=== PATIENT | female | born 1965 | race Caucasian/White ===

== ENCOUNTER 2020-08-26 14:35 | Emergency (ER) | payer OTHER ==
--- NOTE | 2020-08-26 16:27 | RAD REPORT ---
EXAM DESCRIPTION: RAD - Chest Single View - 08/26/2020 4:20 pm CLINICAL HISTORY: COUGH Chest pain. COMPARISON: No comparisons FINDINGS: Portable technique limits examination quality. The lungs are mildly emphysematous but grossly clear. The heart is normal in size. No displaced fract ures. IMPRESSION: No acute intrathoracic process suspected.
[2020-08-26 16:41] LABS: Absolute Lymphocytes (CBC) 1.3 K/uL (0.7-4.9); Basophils % 0.6 % (0-1.3); Hematocrit 46.4 % (36.0-45.0); Lymphocytes % 17.8 % (15.3-44.8); MPV 9.1 fL (7.6-11.3); RBC Red Blood Cell Count 4.94 M/uL (3.86-4.86)
[2020-08-26 16:46] LABS: Potassium 3.9 mmol/L (3.5-5.1)
[2020-08-26] MEDS ORDERED: ONDANSETRON 4 MG/2 ML VIAL ONE (17:01)
[2020-08-26] MEDS ORDERED: MORPHINE 4 MG/ML SYR ONE (17:01)
[2020-08-26] MEDS ORDERED: NA CHLORIDE 0.9% 1,000 ML ONE (17:40)
--- NOTE | 2020-08-26 17:49 | ER ---
Nurse's Notes [facility] Name: Tita Elizabeth Age: 55 yrs Sex: Female : 1965 Arrival Date: 08/26/2020 Time: 14:38 Bed 7 Private MD: Diagnosis: Coronavirus infection, unspecified Presentation: 08/26 14:50 Chief complaint: Patient states: productive cough, body aches, sore throat, fatigue, aa5 headache, and vomiting that began yesterday. Denies diarrhea. Pt also reports diaphoresis and reports low grade fever at home, reports taking Tylenol at 1300. Ebola Screen: Patient negative for fever greater than or equal to 101.5 degrees Fahrenheit, and additional compatible Ebola Virus Disease symptoms. Initial Sepsis Screen: Does the patient meet any 2 criteria? No. Patient's initial sepsis screen is negative. Does the patient have a suspected source of infection? Yes: Productive cough/pneumonia. Risk Assessment: Do you want to hurt yourself or someone else? Patient reports no desire to harm self or others. Onset of symptoms was July 2020. 14:50 Method Of Arrival: Ambulatory aa5 14:50 Acuity: JAY 3 aa5 14:51 Coronavirus screen: cough unrelated to allergies, headache, sore throat, Client aa5 presents with at least one sign or symptom that may indicate coronavirus-19. Standard/surgical mask placed on the client. Provider contacted for isolation considerations. Triage Assessment: 15:45 General: Appears distressed, ill, Behavior is cooperative, appropriate for age, bp anxious. Pain: Complains of pain in GENERAL MYALGIA. EENT: Reports nasal congestion. Neuro: Reports headache. Cardiovascular: Rhythm is sinus bradycardia. Respiratory: Reports cough that is. GI: Reports nausea, vomiting. : No signs and/or symptoms were reported regarding the genitourinary system. Derm: No deficits noted. Musculoskeletal: No deficits noted. Historical: - Allergies: 14:53 Sulfa (Sulfonamide Antibiotics); aa5 - PMHx: 14:53 Hypertension; Arthritis; aa5 14:53 Lyme disease; aa5 - PSHx: 14:53 Bladder sling; Appendectomy; Hysterectomy; aa5 - Immunization history:: Flu vaccine is not up to date. - Social history:: Smoking status: Patient reports the use of cigarette tobacco products, smokes one pack cigarettes per day. Screenin:48 Abuse screen: Denies threats or abuse. Denies injuries from another. Nutritional bp screening: No deficits noted. Tuberculosis screening: No symptoms or risk factors identified. Fall Risk None identified. Assessment: 15:45 General: SEE TRIAGE NOTE. GI: Abdomen is non-distended. bp 16:46 Reassessment: No changes from previously documented assessment. Patient and/or family bp updated on plan of care and expected duration. Pain level reassessed. Patient is alert, oriented x 3, equal unlabored respirations, skin warm/dry/pink. ALL CURRENT ORDERS COMPLETE, RESULTS PENDING. 18:00 Reassessment: PER PROVIDER, D/C ON HOLD FOR IVF COMPLETION. bp Vital Signs: 14:50 BP 191 / 68; Pulse 50; Resp 16 S; Temp 98.8(O); Pulse Ox 95% on R/A; aa5 16:40 BP 174 / 87; Pulse 43; Resp 13; Temp 98.2(O); Pulse Ox 98% ; mh5 17:40 BP 181 / 93; Pulse 58; Resp 13; Pulse Ox 100% ; bp 19:12 BP 180 / 97; Pulse 59; Resp 18; Temp 98; Pulse Ox 99% ; rv ED Course: 14:38 Patient arrived in ED. ag5 14:50 Arm band placed on. aa5 14:51 Triage completed. aa5 15:03 Renetta Orantes FNP-C is [facility]. kb 15:03 Santiago Wang MD is Attending Physician. kb 15:39 Michael Leonard, DALJIT is Primary Nurse. bp 15:45 Patient has correct armband on for positive identification. Placed in gown. Bed in low mh5 position. Call light in reach. Side rails up X 1. Pillow given. campus monitor on. Pulse ox on. NIBP on. 16:20 Chest Single View XRAY In Process Unspecified. EDMS 16:20 Inserted saline lock: 22 gauge in right antecubital area, using aseptic technique. bp Blood collected. Administered Medications: 16:46 Drug: Zofran (Ondansetron) 4 mg Route: IVP; Site: right antecubital; jl7 19:13 Follow up: Response: No adverse reaction rv 16:48 Drug: morphine 4 mg Route: IVP; Site: right antecubital; jl7 19:13 Follow up: Response: No adverse reaction rv 17:29 Drug: NS 0.9% 1000 ml Route: IV; Rate: 1000 ml; Site: right antecubital; jl7 19:13 Follow up: IV Status: Completed infusion; IV Intake: 1000ml rv 19:00 Drug: cloNIDine 0.1 mg Route: PO; jl7 19:13 Follow up: Response: Medication administered at discharge. rv Intake: 19:13 IV: 1000ml; Total: 1000ml. rv Outcome: 17:48 Discharge ordered by . norm 19:14 Patient left the ED. rv Addendum: 08/31/2020 09:10 Addendum: COVID-19 Result: Negative result given to RN to notify pt. Left voice mail. d m5 09:21 Addendum: COVID-19 Result: Negative result given to RN to notify pt. Notified pt of d m5 negative COVID 19 swab results. Pt advised that even with a negative test result they should remain in isolation until symptom free for 3 days without medication. Pt also advised to return to the ED for worsening symptoms. Signatures: Dispatcher [employer] EDMS Renetta Orantes, AUTO INSPECTOR-C AUTO INSPECTOR-Ckb Sharmila Tejada, RN RN Ivone Fowler, RN RN Nancy Vazquez Jahala RN RN catina7 Michael Leonard, RN RN Abelardo Bansal, RN RN rv Jairo Mayfield ag5 Corrections: (The following items were deleted from the chart) 08/26 14:52 14:50 Chief complaint: Patient states: productive cough, body aches, sore throat, aa5 fatigue, headache, and vomiting that began yesterday. Denies diarrhea. aa5 16:49 16:40 BP 174 / 87; Pulse 43bpm; Resp 13bpm; Pulse Ox 98%; jl7 mh5
--- NOTE | 2020-08-26 17:49 | EDPHYS ---
Physician Documentation [facility] Name: Tita Elizabeth Age: 55 yrs Sex: Female : 1965 Arrival Date: 08/26/2020 Time: 14:38 Bed 7 Private MD: ED Physician Santiago Wang HPI: 08/26 17:39 This 55 yrs old Female presents to ER via Ambulatory with complaints of kb Fever, Nausea/Vomiting, Headache. 17:45 The patient or guardian reports cough, that is intermittent, described as moderate, kb with no sputum, flu symptoms, low-grade fever, myalgias. 17:46 Onset: The symptoms/episode began/occurred last week. Severity of symptoms: At their kb worst the symptoms were moderate, in the emergency department the symptoms are unchanged. Modifying factors: The symptoms are alleviated by nothing, the symptoms are aggravated by nothing. Associated signs and symptoms: Pertinent positives: fever, nausea, rhinorrhea, sore throat, vomiting, Pertinent negatives: chest pain, diarrhea, ear ache. The patient has not experienced similar symptoms in the past. The patient has not recently seen a physician. Historical: - Allergies: 14:53 Sulfa (Sulfonamide Antibiotics); aa5 - PMHx: 14:53 Hypertension; Arthritis; aa5 14:53 Lyme disease; aa5 - PSHx: 14:53 Bladder sling; Appendectomy; Hysterectomy; aa5 - Immunization history:: Flu vaccine is not up to date. - Social history:: Smoking status: Patient reports the use of cigarette tobacco products, smokes one pack cigarettes per day. ROS: 17:43 Cardiovascular: Negative for chest pain, palpitations, and edema, Back: Negative for kb injury and pain, MS/Extremity: Negative for injury and deformity, Skin: Negative for injury, rash, and discoloration. 17:43 Constitutional: Positive for body aches, chills, fatigue, fever, malaise. 17:43 ENT: Positive for sore throat. 17:43 Respiratory: Positive for cough, Negative for dyspnea on exertion, hemoptysis, orthopnea, pleurisy, shortness of breath, sputum production, wheezing. 17:43 Neuro: Positive for headache. 17:46 Abdomen/GI: Positive for nausea and vomiting, Negative for abdominal pain, diarrhea, kb constipation. Exam: 17:46 Head/Face: Normocephalic, atraumatic. ENT: Nares patent. No nasal discharge, no kb septal abnormalities noted. Tympanic membranes are normal and external auditory canals are clear. Oropharynx with no redness, swelling, or masses, exudates, or evidence of obstruction, uvula midline. Mucous membranes moist. Chest/axilla: Normal chest wall appearance and motion. Nontender with no deformity. No lesions are appreciated. Cardiovascular: Regular rate and rhythm with a normal S1 and S2. No gallops, murmurs, or rubs. Normal PMI, no JVD. No pulse deficits. Respiratory: Lungs have equal breath sounds bilaterally, clear to auscultation and percussion. No rales, rhonchi or wheezes noted. No increased work of breathing, no retractions or nasal flaring. Abdomen/GI: Soft, non-tender, with normal bowel sounds. No distension or tympany. No guarding or rebound. No evidence of tenderness throughout. Skin: Warm, dry with normal turgor. Normal color with no rashes, no lesions, and no evidence of cellulitis. MS/ Extremity: Pulses equal, no cyanosis. Neurovascular intact. Full, normal range of motion. Neuro: Awake and alert, GCS 15, oriented to person, place, time, and situation. Cranial nerves II-XII grossly intact. Motor strength 5/5 in all extremities. Sensory grossly intact. Cerebellar exam normal. Normal gait. 17:46 Constitutional: The patient appears alert, awake, uncomfortable. Vital Signs: 14:50 BP 191 / 68; Pulse 50; Resp 16 S; Temp 98.8(O); Pulse Ox 95% on R/A; aa5 16:40 BP 174 / 87; Pulse 43; Resp 13; Temp 98.2(O); Pulse Ox 98% ; mh5 17:40 BP 181 / 93; Pulse 58; Resp 13; Pulse Ox 100% ; bp 19:12 BP 180 / 97; Pulse 59; Resp 18; Temp 98; Pulse Ox 99% ; rv MDM: 15:39 Patient medically screened. kb 17:43 Data reviewed: vital signs, nurses notes. Data interpreted: Pulse oximetry: on room air kb is 100 %. Interpretation: normal. Counseling: I had a detailed discussion with the patient and/or guardian regarding: the historical points, exam findings, and any diagnostic results supporting the discharge/admit diagnosis, lab results, radiology results, the need for outpatient follow up, a family practitioner, to return to the emergency department if symptoms worsen or persist or if there are any questions or concerns that arise at home. 08/26 15:03 Order name: Flu; Complete Time: 17:11 kb 08/26 15:53 Order name: Basic Metabolic Panel; Complete Time: 16:48 kb 08/26 15:53 Order name: CBC with Diff; Complete Time: 17:09 kb 08/26 15:53 Order name: Strep; Complete Time: 17:09 kb 08/26 16:06 Order name: COVID-19 bp 08/26 17:09 Order name: Throat Culture EDMS 08/26 15:53 Order name: IV Saline Lock; Complete Time: 16:23 kb 08/26 15:53 Order name: Labs collected and sent; Complete Time: 16:23 kb 08/26 15:53 Order name: Chest Single View XRAY; Complete Time: 16:29 kb Administered Medications: 16:46 Drug: Zofran (Ondansetron) 4 mg Route: IVP; Site: right antecubital; jl7 19:13 Follow up: Response: No adverse reaction rv 16:48 Drug: morphine 4 mg Route: IVP; Site: right antecubital; jl7 19:13 Follow up: Response: No adverse reaction rv 17:29 Drug: NS 0.9% 1000 ml Route: IV; Rate: 1000 ml; Site: right antecubital; jl7 19:13 Follow up: IV Status: Completed infusion; IV Intake: 1000ml rv 19:00 Drug: cloNIDine 0.1 mg Route: PO; jl7 19:13 Follow up: Response: Medication administered at discharge. rv Disposition: 08/27 07:25 Co-signature as Attending Physician, Santiago Wang MD I agree with the assessment and kdr plan of care. Disposition: 08/26/20 17:48 Discharged to Home. Impression: Coronavirus infection, unspecified. - Condition is Stable. - Discharge Instructions: Viral Respiratory Infection, [id number], COVID-19. - Medication Reconciliation Form, Thank You Letter, Antibiotic Education, Prescription Opioid Use form. - Follow up: Emergency Department; When: As needed; Reason: Worsening of condition. Follow up: Private Physician; When: 2 - 3 days; Reason: Recheck today's complaints, Continuance of care, Re-evaluation by your physician. Signatures: Dispatcher [employer] EDMS eRnetta Orantes, ZOOLOGY PROFESSOR-C ZOOLOGY PROFESSOR-Santiago Esposito MD MD [facility] Ivone Wade RN RN aa5 Aron Carlson RN RN jl7 Abelardo Galan, RN RN rv Corrections: (The following items were deleted from the chart) 08/26 17:46 17:44 Constitutional: This is a well developed, well nourished patient who is awake, kb alert, and in no acute distress. Head/Face: Normocephalic, atraumatic. kb 17:47 17:43 Cardiovascular: Negative for chest pain, palpitations, and edema, Abdomen/GI: kb Negative for abdominal pain, nausea, vomiting, diarrhea, and constipation, Back: Negative for injury and pain, MS/Extremity: Negative for injury and deformity, Skin: Negative for injury, rash, and discoloration, kb 19:14 17:48 08/26/2020 17:48 Discharged to Home. Impression: Coronavirus infection, rv unspecified. Condition is Stable. Forms are Medication Reconciliation Form, Thank You Letter, Antibiotic Education, Prescription Opioid Use. Follow up: Emergency Department; When: As needed; Reason: Worsening of condition. Follow up: Private Physician; When: 2 - 3 days; Reason: Recheck today's complaints, Continuance of care, Re-evaluation by your physician. kb
[2020-08-26] MEDS ORDERED: cloNIDine HCL 0.1 MG TAB ONE (19:12)
[2020-08-26 19:33] VITALS: BP 180/97; TEMP 98; O2SAT 99
== END 2020-08-26 19:14 | disposition home or self-care (01) ==
LOC: ER 14:35
DX: R05 Cough (principal); Z20.828 Contact with and (suspected) exposure to other viral communicable diseases; F17.210 Nicotine dependence, cigarettes, uncomplicated; I10 Essential (primary) hypertension; Z88.2 Allergy status to sulfonamides
CPT/HCPCS: 96361; 87070; 85025; 80048; 36415; 87081; 87804 ×2; 71045; 96375; 96374; 99284; U0002; J7030; J2405

== ENCOUNTER 2020-09-16 07:55 | Inpatient (IN) | payer OTHER ==
--- OUTSIDE RECORDS SUMMARY | 2020-09-16 08:01 | XMS REPORT | Clinical Summary ---
:1965 [address] 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 sciatica laterality unspecified cyclobenzaprine Take 1 tablet 30 tablet 0 12/10/2018 Active (FLEXERIL) 10 mg by mouth 2 tabletIndications: times daily as Chronic left-sided low needed for back pain with sciatica, Muscle Spasms. sciatica laterality unspecified Active Problems Not on file Social History Tobacco Use Types Packs/Day Years Used Date Current Every Day Smoker Smokeless Tobacco: Current User Alcohol Use Drinks/Week oz/Week Comments Not Currently Sex Assigned at Date Recorded Not on file Last Filed Vital Signs Not on file Plan of Treatment Health Maintenance Due Date Last Done Comments HPV Cervical Cancer Scrn 1993 Pap Cervical Cancer Scrn 1993 Breast Cancer Scrn (Yearly) 2003 FIT Colorectal Cancer Scrn 2013 IMM Influenza Seasonal May to October (>/= 19 yrs) 05/28/2020 Results Not on fileafter 09/16/2019 Insurance Payer Benefit Plan / Subscriber ID Effective Dates Phone Addre ss Type Group [employer] SELF-PAY [id number] 2017-[place]ardo [phone] [id number] [place] [address]
--- OUTSIDE RECORDS SUMMARY | 2020-09-16 08:01 | XMS REPORT | Continuity of Care Document ---
:1965 Author Organization [facility] Information [place] Care Team Providers Name Role Phone [facility] Spotwise Unavailable Un available Problems Problem Status Onset Classification Date Comments Sourc e Date Reported DX: RENAL ANGIOGRAM Active 014 [facility] BOWEL OBSTRUCTION Active 014 [facility] 795.79 V82.2 724.2 Active [facility] 719.43 726.31 001 [facility] Crohn's disease Resolved Problem 02/07/2015 [facility]ID (disorder) Patience Miguel, [facility] Hypercholesterolemia Active Problem 02/07/2015 [facility] Hypertensive disorder, Active Problem 02/07/2015 OPID systemic arterial Ka ty, (disorder) [facility] Sleep apnea (finding) Active Problem 02/07/2015 [facility] Active NOS [facility] Medications Medication Details Route Status Patient Ordering Order Source Instructions Provider Date Ativan Notes: (Same Inactive as: Ativan) 2013 [facility] Acetaminophen Notes: Do not Inactive exceed 4 2013 [facility] gm/day. [facility] (Same as: Tylenol) rOPINIRole 1 mg 1 mg = 1 tab, Active oral tablet PO, Daily, 0 2013 [facility] l Refill(s) [facility] Klor-Con 10 10 mEq, PO, Active Daily, [facility] Hydrochlorothiazide 1 tab, PO, Active 05/20/ M H 12.5 MG / Losartan Daily, # 30 [facility] Potassium 50 MG tab, 0 [facility] Oral Tablet Refill(s) aspirin 81 mg, PO, Active Daily 2013 [facility] aripiprazole 15 MG 15 mg = 1 Active Oral Tablet tab, PO, 2013 [facility] [Abilify] Daily [facility] Clonidine PO, Bedtime Active 2013 [facility] Ibuprofen 800 mg, PO, Active 09 BID 2013 [facility] Miralax Notes: Inactive Dissolve in 8 2013 [facility] oz of water or juice. (Same as: Miralax) Dulcolax Laxative Notes: (Same Inactive As: Dulcolax, 2013 [facility] Bisco-Lax) Sertraline Notes: (Same No Longer as: Zoloft) Active 2013 [facility] Methocarbamol Notes: (Same No Longer as:Robaxin) Active 2013 [facility] aripiprazole Notes: No Longer Non-Formulary Active 2013 [facility] Drug. (Same as: Abilify) Entocort EC 9 mg, Route: No Longer PO, Drug Active 2013 [facility] form: ERCAP, Daily, Dosing Weight 71.818, kg, Start date: 01/01/14 9:00:00, Duration: 30 day, Stop date: 01/30/14 9:00:00 Budesonide Notes: (Same No Longer As: Entocort Active 2013 [facility] EC or Budesonide 3 mg EC / ERC) "Do Not Crush" Protonix Notes: Tablet No Longer should not be Active 2013 [facility] chewed or crushed. (Same as: Protonix) Dicyclomine Notes: (Same No Longer as: Bentyl) Active 2013 [facility] Trazodone Notes: (Same No Longer Hydrochloride 100 As: Desyrel) Active 2013 [facility] Oral Tablet Zocor Notes: (Same No Longer as: Zocor) Active 2013 [facility] Ditropan XL Notes: (Same No Longer as: Ditropan Active 2013 [facility] XL) "Do Not Crush" Pamelor Notes: (Same No Longer as:Pamelor, Active 2013 [facility] Aventyl) metoprolol tartrate Notes: (Same No Longer 01/01 as: Active 2013 [facility] Lopressor) Pentasa Notes: (Same No Longer as: Pentasa) Active 2013 [facility] Do not open capsule. "Do Not Crush" Ketorolac 4 days. Inactive [facility] 15 [facility] Nicotine Notes: (Same No Longer as: Habitrol) Active 2013 "Remove old patch before application of new patch" Protonix Notes: For IV No Longer push 2013 reconstitute with 10 ml 0.9% sodium chloride and push over 2 minutes. (Same as: Protonix) 24 HR Budesonide 3 9 mg = 3 cap, Active 12/30/ [facility] MG Extended Release PO, Daily, # 2013 [facility] Co[facility] 90 cap, 0 Capsule [Entocort] Refill(s) metoprolol tartrate 25 mg = 1 Active 12/30/ 25 mg oral tablet tab, PO, BID, 2013 # 180 tab, 0 Refill(s) ARIPiprazole 15 mg 15 mg = 1 Active oral tablet tab, PO, 2013 Daily, # 30 tab, 0 Refill(s) mesalamine 500 MG 2,000 mg = 4 Active 05/05/ M H Extended Release cap, BID, 0 2013 [facility] Capsule [Pentasa] Refill(s) sertraline 100 mg 100 mg = 1 Active oral tablet tab, PO, 2013 Daily, # 30 tab, 0 Refill(s) dicyclomine 20 mg 20 mg = 1 Active oral tablet tab, PO, BID, 2013 [facility] ast # 28 tab, 0 Refill(s) mercaptopurine 50 100 MG/M2, Active 12/30/ mg oral tablet PO, Daily, # 2013 [facility] 30 tab, 0 Refill(s) ibuprofen 600 mg 600 mg = 1 Active 12/30/ oral tablet tab, PO, BID, 2013 ast # 120 tab, 0 Refill(s) Simvastatin 20 MG 20 mg = 1 Active Oral Tablet [Zocor] tab, PO, 2013 [facility] Bedtime, # 30 tab, 0 Refill(s) Nortriptyline 50 MG 50 mg = 1 Active Oral Capsule cap, PO, 2013 [Pamelor] Bedtime, # 90 cap, 0 Refill(s) 24 HR Oxybutynin 10 mg = 1 Active 12/30/ chloride 10 MG tab, PO, 2013 t Extended Release Bedtime, # 30 Tablet [Ditropan] tab, 0 Refill(s) Trazodone 100 mg = 1 Active Hydrochloride 100 tab, PO, 2013 [facility] Oral Tablet Bedtime, # 90 tab, 0 Refill(s) Ranitidine 300 MG 300 mg = 1 Active Oral Tablet tab, PO, 2013 [Zantac] Daily, # 30 tab, 0 Refill(s) Sodium Bicarbonate 0 Refill(s) Active H 2013 [facility] methocarbamol 750 750 mg = 1 Active mg oral tablet tab, PO, 2013eas t Daily, # 60 tab, 0 Refill(s) Omeprazole 40 MG 40 mg = 1 Active [facility] Coated cap, PO, 2013[facility] t Capsule [Prilosec] Daily, # 30 cap, 0 Refill(s) Morphine Notes: (Same No Longer as:MORPhine Active 2013 [facility] Sulfate) Zofran Notes: (Same No Longer as: Zofran) Active 2013 [facility] Lovenox Notes: (Same No Longer as: Lovenox) Active 2013 [facility] normal saline 0.9% 1,000 mL, No Longer 12/30/ H IV 1,000 mL Rate: 100 Active 2013 [facility] ml/hr, Infuse over: 10 hr, Route: IV, Dosing Weight 71.818 kg, Total Volume: 1,000, Start date: 12/30/13 3:52:00, Duration: 30 day, Stop date: 01/29/14 3:51:00 Allergies, Adverse Reactions, Alerts Substance Category Reaction Severity Reaction Status Date Comments S ource type Reported NKFA Assertion Drug Active OPI D allergy Patience sulfa drugs Assertion Drug Active OPID allergy Patience Immunizations No Data Provided for This Section Results Order Name Results Value Reference Date Interpretation Comments [facility] CHEM PANEL BUN 8 7 - 22 05/19 [facility] CHEM PANEL Glucose Lvl 91 70 - 99 05/19 <sup>2</sup>Int erpretive Data: [facility] range values reflect the clinical guidelines
of the [place] [employer]. CHEM PANEL CO2 29 24 - 32 05/19 [facility] CHEM PANEL AGAP 6.7 10.0 - 05/19 [facility] 20.0 /2013 [facility] CHEM PANEL eGFR 86 05/19 <sup>1</sup>Res ult Comment: [facility] The eGFR is [place] calculated using the CKD-EPI formula. In most young, healthy individuals the eGFR will be >90 mL/min/1.73m2. The eGFR declines with age. An eGFR of 60-89 may be normal in some populations, particularly the elderly, for whom the CKD-EPI formula has not been extensively validated. Use of the eGFR is not recommended in the following populations:&lt ;br/>
Indiv iduals with unstable creatinine concentrations, including patients and those with serious co-morbid conditions.<br/ >
Patients with extremes in muscle mass or diet.

The data above are obtained from the National Kidney Disease Education Program (NKDEP) which additionally recommends that when the eGFR is used in patients with extremes of body mass index for purposes of drug dosing, the eGFR should be multiplied by the estimated BMI. CHEM PANEL Creatinine 0.8 0.5 - 1.4 05/19 Lvl [facility] CHEM PANEL Chloride Lvl 104 95 - 109 05/19 [facility] CHEM PANEL Potassium 3.7 3.5 - 5.1 05/19 Lvl [facility] CHEM PANEL Sodium Lvl 136 135 - 145 05/19 [facility] CHEM PANEL Calcium Lvl 9.7 8.5 - 10.5 05/19 [facility] HEMATOLOGY MCV 101.6 80.0 - 05/19 MH 98.0 /2013 [facility] HEMATOLOGY MCH 35.5 27.0 - 05/19 MH 31.0 [facility] HEMATOLOGY Hgb 13.3 12.0 - 05/19 MH 16.0 [facility] HEMATOLOGY Hct 37.9 36.0 - 05/19 MH 48.0 /2013 [facility] HEMATOLOGY RBC 3.73 4.20 - 05/19 MH 5.40 /2013 [facility] HEMATOLOGY WBC 6.1 3.7 - 10.4 05/19 [facility] HEMATOLOGY MPV 8.0 7.4 - 10.4 05/19 [facility] HEMATOLOGY RDW 17.2 11.5 - 05/19 MH 14.5 /2013 [facility] HEMATOLOGY Platelet 223 133 - 450 05/19 [facility] HEMATOLOGY MCHC 35.0 32.0 - 05/19 MH 36.0 /2014 [facility] HEMATOLOGY INR 0.93 0.85 - 05/19 <sup>3</sup>Int 1.17 erpretive Data: [facility] RANGES FOR PROTIME INR:
2.0-3.0 for most medical and surgical thromboembolic states.
2.5-3.5 for artificial heart valves and recurrent embolism.
< br/>INR SHOULD BE USED ONLY FOR PATIENTS ON STABLE ANTICOAGULANT THERAPY. HEMATOLOGY PT 12.4 12.0 - 05/19 MH 14.7 [facility] CHEM PANEL Magnesium 2.0 1.8 - 2.4 01/01 Lvl [facility] CHEM PANEL eGFR 113 01/01 <sup>1</sup>Res ult Comment: [facility] The eGFR is calculated using the CKD-EPI formula. In most young, healthy individuals the eGFR will be >90 mL/min/1.73m2. The eGFR declines with age. An eGFR of 60-89 may be normal in some populations, particularly the elderly, for whom the CKD-EPI formula has not been extensively validated. Use of the eGFR is not recommended in the following populations:&lt ;br/>
Indiv iduals with unstable creatinine concentrations, including patients and those with serious co-morbid conditions.<br/ >
Patients with extremes in muscle mass or diet.

The data above are obtained from the National Kidney Disease Education Program (NKDEP) which additionally recommends that when the eGFR is used in patients with extremes of body mass index for purposes of drug dosing, the eGFR should be multiplied by the estimated BMI. CHEM PANEL BUN 4 7 - 22 01/01 [facility] CHEM PANEL Potassium 3.8 3.5 - 5.1 01/01 Lvl [facility] CHEM PANEL Creatinine 0.5 0.5 - 1.4 01/01 Lv [facility] CHEM PANEL Glucose Lvl 94 70 - 99 01/01 <sup>3</sup>Int M H /2013 erpretive Data: [facility] Adult reference range values reflect the clinical guidelines
of the [place] [employer]. CHEM PANEL Sodium Lvl 142 135 - 145 01/01 [facility] CHEM PANEL Calcium Lvl 8.7 8.5 - 10.5 05/07 /2013 [facility] CHEM PANEL Chloride Lvl 105 95 - 109 05/ /2013 [facility] CHEM PANEL CO2 30 24 - 32 05/ /2013 [facility] CHEM PANEL AGAP 10.8 10.0 - 05/07 MH 20.0 /2013 [facility] HEMATOLOGY WBC 4.4 3.7 - 10.4 05/ /2013 [facility] HEMATOLOGY RBC 3.80 4.20 - 05/ MH 5.40 /2013 [facility] HEMATOLOGY MCH 31.1 27.0 - 05/ MH 31.0 /2013 [facility] HEMATOLOGY Hgb 11.8 12.0 - 05/ MH 16.0 /2013 [facility] HEMATOLOGY Hct 34.5 36.0 - 05/ MH 48.0 /2013 [facility] HEMATOLOGY MCV 90.6 81.0 - 05 99.0 /2013 [facility] HEMATOLOGY RDW 16.3 11.5 - 05/ MH 14.5 /2013 [facility] HEMATOLOGY MCHC 34.3 32.0 - 05/ 36.0 /2013 [facility] HEMATOLOGY Platelet 167 133 - 450 05/ /2013 [facility] HEMATOLOGY MPV 7.9 7.4 - 10.4 05/ /2013 [facility] HEMATOLOGY Eosinophils 1.6 0.0 - 4.0 05/07 MH /2013 [facility] HEMATOLOGY Basophils 0.2 0.0 - 1.0 05/07 MH /2013 [facility] HEMATOLOGY Segs-Bands # 2.6 1.5 - 8.1 05/ /2013 [facility] HEMATOLOGY Monocytes 7.4 2.0 - 12.0 05/07 MH /2013 [facility] HEMATOLOGY Lymphocytes 1.3 1.0 - 5.5 05/07 MH # /2014 [facility] HEMATOLOGY Monocytes # 0.3 0.0 - 0.8 05/07 MH /2013 [facility] HEMATOLOGY Eosinophils 0.1 0.0 - 0.5 05/07 MH # /2014 [facility] HEMATOLOGY Basophils # 0.0 0.0 - 0.2 05/ MH /2013 [facility] HEMATOLOGY Lymphocytes 30.7 20.0 - 05/07 MH 40.0 /2013 [facility] HEMATOLOGY Segs 60.1 45.0 - 05/07 75.0 /2013 [facility] CHEM PANEL Magnesium 1.8 1.8 - 2.4 05/05 Lvl /2014 [facility] CHEM PANEL Phosphorus 2.6 2.5 - 4.5 05/ /2013 [facility] CHEM PANEL Globulin 2.8 2.0 - 4.0 05/ MH /2013 [facility] CHEM PANEL A/G Ratio 1.2 0.7 - 1.6 05/ MH /2013 [facility] CHEM PANEL B/C Ratio 10 6 - 25 05/ MH /2013 [facility] CHEM PANEL AGAP 6.9 10.0 - 05/05 MH 20.0 /2013 [facility] CHEM PANEL eGFR 101 05/05 <sup>2</sup>Res MH /2013 ult Comment: [facility] The eGFR is calculated using the CKD-EPI formula. In most young, healthy individuals the eGFR will be >90 mL/min/1.73m2. The eGFR declines with age. An eGFR of 60-89 may be normal in some populations, particularly the elderly, for whom the CKD-EPI formula has not been extensively validated. Use of the eGFR is not recommended in the following populations:&lt ;br/>
Indiv iduals with unstable creatinine concentrations, including patients and those with serious co-morbid conditions.<br/ >
Patients with extremes in muscle mass or diet.

The data above are obtained from the National Kidney Disease Education Program (NKDEP) which additionally recommends that when the eGFR is used in patients with extremes of body mass index for purposes of drug dosing, the eGFR should be multiplied by the estimated BMI. CHEM PANEL Glucose Lvl 84 70 - 99 05 <sup>4</sup>Int M H /2013 [facility] reference range values reflect the clinical guidelines
of the [place] [employer]. CHEM PANEL Potassium 3.9 3.5 - 5.1 05/ MH Lvl [facility] CHEM PANEL Sodium Lvl 141 135 - 145 / [facility] CHEM PANEL Creatinine 0.7 0.5 - 1.4 05/05 MH Lvl /2013 [facility] CHEM PANEL BUN 7 7 - 22 05/ MH [facility] CHEM PANEL Bili Total 0.3 0.2 - 1.3 05/ MH [facility] CHEM PANEL Alk Phos 71 39 - 136 05/ [facility] CHEM PANEL AST 21 0 - 37 05/05 MH [facility] CHEM PANEL ALT 20 0 - 65 05/ MH [facility] CHEM PANEL Total 6.1 6.4 - 8.4 05/ MH [facility] CHEM PANEL CO2 33 24 - 32 05/ [facility] CHEM PANEL Albumin Lvl 3.3 3.5 - 5.0 05/ /2013 [facility] CHEM PANEL Calcium Lvl 8.4 8.5 - 10.5 05/ [facility] CHEM PANEL Chloride Lvl 105 95 - 109 05/ [facility] HEMATOLOGY Basophils # 0.0 0.0 - 0.2 05/ /2013 [facility] HEMATOLOGY Segs 63.5 45.0 - 05/05 75.0 /2013 [facility] HEMATOLOGY Monocytes # 0.3 0.0 - 0.8 05/05 [facility] HEMATOLOGY Basophils 0.2 0.0 - 1.0 05/ /2013 [facility] HEMATOLOGY Lymphocytes 1.5 1.0 - 5.5 05/05 # /2013 [facility] HEMATOLOGY Segs-Bands # 3.3 1.5 - 8.1 05/ [facility] HEMATOLOGY Eosinophils 0.1 0.0 - 0.5 05/ # /2013 [facility] HEMATOLOGY Lymphocytes 28.9 20.0 - 05/05 40.0 /2013 [facility] HEMATOLOGY Monocytes 6.2 2.0 - 12.0 05/ [facility] HEMATOLOGY Eosinophils 1.2 0.0 - 4.0 05/ /2013 [facility] HEMATOLOGY MCHC 34.3 32.0 - 05/05 36.0 /2013 [facility] HEMATOLOGY RDW 16.5 11.5 - 05/05 14.5 /2013 [facility] MCH 31.5 27.0 - 05/05 31.0 /2013 [facility] HEMATOLOGY MCV 91.9 81.0 - 05/ 99.0 /2013 [facility] HEMATOLOGY Platelet 177 133 - 450 05 [facility] HEMATOLOGY MPV 7.9 7.4 - 10.4 05/ [facility] RBC 3.91 4.20 - 05/05 MH 5.40 /2014 [facility] HEMATOLOGY Hct 35.9 36.0 - 05/05 48.0 /2013 [facility] HEMATOLOGY Hgb 12.3 12.0 - 05/05 16.0 /2013 [facility] WBC 5.1 3.7 - 10.4 05 [facility] Pathology Reports No Data Provided for This Section Diagnostic Reports Report Value Date Source Spine lumbar wo MRI lumbar spine without contrast. 02/04/2015 [facility]ID Patience contrast MRI HISTORY: Lumbago. Increasing right leg numbness, pain, weakness. COMPARISON: None available. TECHNIQUE: Multiplanar imagi ng of the lumbar spine was performed utilizing multiple pulse sequences. No contrast administered. FINDINGS: It is presumed that there ar e 5 lumbar type vertebral bodies. The vertebral bodies maintain their height and shape. No compression fracture seen. No worrisome abnormal signal seen within the bone marrow . 9 mm lesion involving L1 d emonstrate increased signal on T1 and T2 weighted sequences and decreased signal on inversion recovery sequences compatible with a fat containing lesion/hemangioma. Posterior alignment of the v ertebral bodies is maintained. Paravertebral and paraspinal soft tissues are unremarkable. Visualized retroperitoneal structures appear within normal limits. The conus medullaris ends at the bottom of L1. T11-T12, T12-L1: Negative. L1-L2: Potential minimal dif fuse disc bulge present. Mild bilateral posterior facet arthropathy evident. No significant spinal or foraminal stenosis suggested. L2-L3: Mild bilateral forami nal disc protrusions present and more prominent on the right. Mild bilateral posterior facet arthropathy present. Mild bilateral foraminal stenosis present. No spinal stenosis seen. L3-L4: Bilateral foraminal d isc protrusions present and more prominent on the left. Mild bilateral posterior facet arthropathy present. Minimal right and mild left foraminal stenosis present. No significant spinal stenosis seen. L4-L5: Mild diffuse disc bul ge present. Moderate bilateral posterior facet arthropathy evident. Mild bilateral foraminal stenosis present. No spinal stenosis seen. L5-S1: Minimal bilateral for aminal protrusions suggested along with mild bilateral posterior facet arthropathy. Mild bilateral foraminal stenosis present. No spinal stenosis appreciated. IMPRESSION: 1. Multilevel degenerative changes. 2. No acute findings identified. SL: 03 Spine cervical wo PROCEDURE: MRI CERVICAL SPINE WITHOUT CONTRAST 02/04/2015 LINDA Morin contrast MRI INDICATION: 724.4 Thoracic or Lumbosacral Neuritis or Radiculitis, Unspecified . Patient states increasing right arm numbness, weakness and pain since 2011. Patient states no cervical spine injuries or surgery. COMPARISON: None. TECHNIQUE : Noncontrast cerv ical spine MRI is performed utilizing multiplanar and multiecho sequences. FINDINGS: Mild loss of the n ormal cervical lordosis. Otherwise, sagittal anatomic alignment is intact. Craniocervical junction is within normal limits. Dens basion distance and predental space are withi n normal limits without prev ertebral soft tissue edema, facet malalignment, or interspinous widening. Mild anterior compression deformity of C5 without marrow edema suggesting chronic compression deform ity. Multilevel disc desicca tion is identified. Disc space narrowing with marginal osteophyte formation spanning C4-C5 to C6-C7. No abnormal signal alterations of the vertebral bodies or cervical cord. There is no cord compression . No cord enlargement. No epidural mass or hemorrhage. Disc levels are as follows: C2-C3: Negative. C3-C4: Negative. C4-C5: Disc osteophyte compl ex predominant right of midline with uncovertebral joint hypertrophy which results in moderate right neuroforaminal narrowing. Mild effacement of the ventral thecal sac right of midline. Spinal canal measures 10 mm in the mid sagittal plane. C5-C6: Mild disc osteophyte complex with mild bilateral neuroforamina narrowing. C6-C7: Annular disc bulge emery perimposed on disc osteophyte complex with effacement of the ventral thecal sac. Spinal canal measures 9 mm in mid sagittal plane. Mild to moderate bilateral neuroforamina narrowing. C7-T1: Negative. IMPRESSION: Cervical spo ndylosis with neuroforaminal narrowing as described above. Negative for disc herniation SL: 01 Elbow 2 views Left elbow 2 views: No acute osseous injury or evidence of arthritis identified. No evidence of elbow joint effusion. 01/05/2015 [facility] Bilateral DX Right elbow 2 views: No acut e osseous injury or arthritis identified. No joint effusion identified. IMPRESSION: 1. Unremarkable exam. Sacroiliac joints SACROILIAC JOINT SERIES 01/05/2015 [facility] series DX CLINICAL HISTORY: Low back pain. COMPARISON IMAGING: None. FINDINGS: Three views were submitted f or evaluation. No fracture, dislocation, or radiopaque foreign body is seen. There is no evidence of an inflammatory or degenerative arthritis. Soft tissues are unremarkable. IMPRESSION: No significant abnormality. Chest 1view STUDY: Chest one view. 05/20/2014 [facility] COMPARISON: None HISTORY: Hypertension. FINDINGS: The lungs are clear. No dens e focal consolidation is seen. No pleural effusion or pneumothorax is seen. The heart is normal in size. The osseous structures are unremarkable. IMPRESSION: No acute cardiopulmonary process. Abdomen 2 views HISTORY: Abdominal pain. 01/02/2014 [facility] Two views abdomen. Comparison 01/01/2014. Resid ual contrast within the colon unchanged from previous. No small bowel distention or obstruction identified. No fluid level or free air. There are atelectatic changes in both lung bases. SL:13 Abdomen 2 views ABDOMEN 2 VIEWS: There is no bowel distention. Contrast in the colon is seen with further transit and partial clearance since the exam on the previous day. There is no evidence of pneumoperitoneum. There are no other changes. 01/01/2014 [facility] SL:13 Consultation Notes No Data Provided for This Section Discharge Summaries No Data Provided for This Section History and Physicals No Data Provided for This Section Vital Signs Vital Sign Value Date Comments Source Weight 70.455 05/16/2014 [facility] y BMI Calculated 27.51 05/16/2014 [facility] it Height 160.02 cm 05/16/2014 [facility] y Respitory Rate 16 01/02/2014 [facility] Heart Rate 69 01/02/2014 [facility] Temperature Oral (F) 98.4 F 01/02/2014 [facility] Diastolic (mm Hg) 95 01/02/[address] Systolic (mm Hg) 174 01/02/2014 [facility] Temperature Oral (F) 98.2 F 01/02/2014 [facility] [facility]2014 [facility] Respitory Rate 16 01/02/2014 [facility] Systolic (mm Hg) 173 01/02/2014 [place] Diastolic (mm Hg) 67 01/02/[address] Diastolic (mm Hg) 92 01/02/[address] Systolic (mm Hg) 150 01/02/2014 [place] [facility] Respitory Rate 16 01/02/2014 [facility] Temperature Oral (F) 98.5 F 01/02/2014 [facility] Heart Rate 69 01/02/2014 [facility] Weight 71.818 12/30/2013 [facility] Height 162.56 cm 12/30/2013 [facility] BMI Calculated 27.18 12/30/2013 [facility] Weight 71.818 12/30/2013 [facility] BMI Calculated 27.18 12/30/2013 [facility] Height 162.56 cm 12/30/2013 [facility] Weight 71.818 12/30/2013 [facility] BMI Calculated 27.18 12/30/2013 [facility] Height 162.56 cm 12/30/2013 [facility] Encounters Location Location Encounter Encounter Reason Attending ADM DC Stat us Source Details Type Number For Provider Date Date Visit [facility] [id number] Rivera 12/30 01/03 [facility] 5 Term[facility] Bedded [id number] Larry 05/20 05/20 [facility] 0 Francis [facility] orial [facility] Outpatient [id number] Julita 01/05 01/06 [facility] 1 Silvano-Fu Mau sai [facility] Outpt Diag [id number] Julian 02/04 02/05 [facility] Outpatient Services 0 Ashish Su[facility] Procedures Procedure Code Date Perfomer Comments Source Abdominal aorta [id number] [facility] angiogram [facility] Abdominal [id number] [facility] hysterectomy [facility] [id number] [facility], [facility], bilateral [facility] Appendectomy [id number] OP[facility] Superior mesenteric [id number] OP ID angiography [facility] Suspension of [id number] [facility] bladder [facility] Tonsillectomy [id number] [facility] Bladder [id number] [facility] augmentation Assessment and Plan No Data Provided for This Section Plan of Care No Data Provided for This Section Social History Social History Date Source Social History TypeResponse 12/30/2013 [facility] Substance Abuse Use: Current. Type: Cocaine. IV drug u se: Yes. Ready to change: Yes. Cessation Education Provided: Yes. Smoking Status Current every day smoker; Tobacco use pe r day: 6; Number of years: 20; Total pack years: 1; Stopped at age: 18; Previous treatment: Counseling; Ready to change: No; Concerns about tobacco use in househo ld: No; Lives with someone who smokes; C igarette Smoking Last 365 Days Yes; Reg Smoking Cessation Counseling No1 1Uses only Vapor cigarette currently Social History TypeResponse 12/30/2013 [facility] Substance Abuse Use: Current. Type: Cocaine. IV drug u se: Yes. Ready to change: Yes. Cessation Education Provided: Yes. Smoking Status Current every day smoker; Tobacco use pe r day: 6; Number of years: 20; Total pack years: 1; Stopped at age: 18; Previous treatment: Counseling; Ready to change: No; Concerns about tobacco use in househo ld: No; Lives with someone who smokes; C igarette Smoking Last 365 Days Yes; Reg Smoking Cessation Counseling No1 1Uses only Vapor cigarette currently Social History TypeResponse 12/30/2013 [facility] Substance Abuse Use: Current, Type: Cocaine, IV drug use : Yes, Ready to change: Yes, Drug Cessation Education Provided Yes Smoking Status Current every day smoker, Type: Cigarett es, Previous treatment: Counseling, Ready to change: No, Concerns about tobacco use in household: No, Exposure to Tobacco Smoke Lives with someone who smokes, Cig arette Smoking Last 365 Days Yes, Reg Smoking Cessation Coun seling No Family History No Data Provided for This Section Advance Directives No Data Provided for This Section Functional Status No Data Provided for This Section
--- OUTSIDE RECORDS SUMMARY | 2020-09-16 08:01 | XMS REPORT | Clinical Summary ---
:1965 Author Organization [facility] Address [address] [place] [address] Care Team Providers Name Role Phone Gaurav Hinojosa MD Primary Care Provider Allergies Active Allergy Reactions Severity Noted Date Comments Sulfa (Sulfonamide Antibiotics) 8 Medications Medication Sig Dispensed Refills Start Date End Date Status metoprolol tartrate Take 25 mg by 0 Active (LOPRESSOR) 25 mg mouth 3 (three) tablet times a day. Note: Rx label states BID but pt takes TID. cyanocobalamin, Take 1 tablet by 0 Active vitamin B-12, (VITAMIN mouth daily. B-12 ORAL) naproxen sodium Take 440 mg by 0 Active (ALEVE) 220 MG tablet mouth daily as needed for mild pain. citalopram (CeleXA) 40 Take 40 mg by 0 Active MG tablet mouth nightly. Active Problems Problem Noted Date Chest pain of uncertain etiology 02/12/2018 Immunizations Name Administration Dates Next Due Tdap 04/13/2018 Surgical History Surgery Date Site/Laterality Comments HYSTERECTOMY TONSILLECTOMY APPENDECTOMY Medical History Medical History Date Comments Hypertension Social History Tobacco Use Types Packs/Day Years Used Date Current Every Day Smoker Smokeless Tobacco: Never Used Alcohol Use Drinks/Week oz/Week Comments No Sex Assigned at Date Recorded Not on file Last Filed Vital Signs Not on file Plan of Treatment Health Maintenance Due Date Last Done Comments COVID-19 VACCINE (1 of 2) 1979 CERVICAL CANCER SCREENING 02/27/1984 COLONOSCOPY SCREENING 2013 SHINGLES VACCINES (#1) 2013 BREAST CANCER SCREENING 07/28/2017 07/28/2015, 04/03/2014 INFLUENZA VACCINE 03/28/2020 Results Not on fileafter 09/16/2019 Advance Directives For more information, please contact: [phone] Type Date Recorded 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
--- OUTSIDE RECORDS SUMMARY | 2020-09-16 08:03 | XMS REPORT | Summary of Care ---
:1965 Author Organization [facility] - Health Address [address] [place] [address] Care Team Providers Name Role Phone Julian Hinojosa Primary Care Provider Reason for Visit Reason Comments Back Pain Incontinence Auth/Cert Status Reason Specialty Diagnoses / Referred By Referred To Procedures Contact Contact Emergency Medicine Adc Em ergency Dept [address] [place] [address] Fax: Encounter Details Date Type Department Care Team Description 07/02/2020 Emergency ADC-Emergency Elier Chao DO Dysuria (Primary Dx); Department [address] [place] [address]. Polyarthralgia; [address] [place] [address] RT 0711 Bilateral groin pain; [place] [address] Urinary incontinence, unspecified type; [place] [address] Dyspareunia in female; [phone] Rheumatoi d arthritis flare Allergies Active Allergy Reactions Severity Noted Date Comments Sulfa (Sulfonamide Swelling 11/16/2018 Throat sw elling Antibiotics) Tramadol Other - See comments 11/22/2018 contrad iction with anti-depression medication documented as of this encounter (statuses as of 07/02/2020) Medications Medication Sig Dispensed Refills Start End Status Date Date cyclobenzaprine 5 mg Take 1 tablet 9 tablet 0 Active tabletIndications: by mouth 3 9 Arthritis (three) times daily. acetaminophen-codeine Take 1 tablet 20 tablet 0 Active (TYLENOL-CODEINE #3) by mouth every 0 300-30 mg 4 (four) hours tabletIndications: as needed for acute pain Pain (scale 7-10). Indications: acute pain oxybutynin 10 mg 24 hr Take 1 tablet 20 tablet 0 Active tabletIndications: by mouth 0 Bilateral groin pain, daily. Urinary incontinence, unspecified type methylPREDNISolone Take by mouth 21 Each 0 Active (MEDROL, JENNY,) 4 mg SEE-INSTRUCTIO 0 tabletsIndications: NS. follow Bilateral groin pain, package Urinary incontinence, directions unspecified type naproxen sodium Take 1 tablet 30 tablet 0 Active (ANAPROX DS) 550 mg by mouth 2 0 tabletIndications: (two) times Rheumatoid arthritis daily with flare meals. naproxen sodium Take 1 tablet 30 tablet 0 Discontinued (ANAPROX DS) 550 mg by mouth 2 0 020 (Reorder) tabletIndications: (two) times Rheumatoid arthritis daily with flare meals. methylPREDNISolone Take by mouth 21 Each 0 Discontinued (MEDROL, JENNY,) 4 mg SEE-INSTRUCTIO 0 020 (Duplicate) tabletsIndications: NS. follow Rheumatoid arthritis package flare directions methylPREDNISolone 4 Take by mouth 21 Each 0 2 Discontinued mg tabletsIndications: SEE-INSTRUCTIO 0 02 0 (Duplicate) Myalgia, Herpes zoster NS. 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 documented as of this encounter Last Filed Vital Signs Vital Sign Reading Time Taken Comments Blood Pressure 135/74 07/02/2020 3:00 PM CHOCOLATE PRODUCTION MACHINE OPERATOR Pulse 84 07/02/2020 3:00 PM CHOCOLATE PRODUCTION MACHINE OPERATOR Temperature 36.9 C (98.5 F) 07/02/2020 2:37 PM CHOCOLATE PRODUCTION MACHINE OPERATOR Respiratory Rate 18 07/02/2020 3:00 PM CHOCOLATE PRODUCTION MACHINE OPERATOR Oxygen Saturation 96% 07/02/2020 3:00 PM CHOCOLATE PRODUCTION MACHINE OPERATOR Inhaled Oxygen Concentration - - Weight 56.7 kg (125 lb) 07/02/2020 2:41 PM CHOCOLATE PRODUCTION MACHINE OPERATOR Height - - Body Mass Index 22.14 03/17/2020 11:36 AM CDT documented in this encounter Discharge Instructions Elier Page DO - 07/02/2020 DIAGNOSIS Diagnoses that have been ruled out: None Diagnoses that are still under consideration: None Final diagnoses: Dysuria Polyarthralgia Bilateral groin pain Urinary incontinence, unspecified type Dyspareunia in female NO LIFE-THREATENING FINDINGS ON TODAY'S EXAM. PROCEDURES IN THE ER TODAY: Orders Placed This Encounter Procedures URINALYSIS MEDICATIONS ADMINISTERED IN THE ER TODAY AND DISCHARGE MEDICATIONS: Orders Placed This Encounter Medications HYDROcodone-acetaminophen (NORCO 5) 5-325 mg tablet 1 tablet FOLLOW-UP RECOMMENDATIONS: RECOMMEND FOLLOW-UP WITH A PRIMARY CARE PROVIDER OR SPECIALIST IN 2-5 DAYS, ESPECIALLY IF NO IMPROVEMENT IN SYMPTOMS. MAY FOLLOW-UP WITH A PROVIDER OF YOUR CHOICE, SUCH : 1. A PHYSICIAN OF YOUR CHOICE 2. [facility], . LOCATIONS IN [facility] 3. [facility], [address] [place] [address]; [phone] OR, IF YOU WISH TO FOLLOW-UP WITHIN THE [facility], MAY TRY THESE OPTIONS (CLINIC APPOINTMENTS AVAILABLE ON KKEQ-PD-BIGE BASIS): 1. SCHEDULE AN APPOINTMENT ONLINE AT WWW.[facility] 2. OR CALL THE [facility] ACCESS CENTER AT OR 3. OR CALL YOUR [facility] PHYSICIAN'S OFFICE DIRECTLY IF YOU ARE ALREADY AN ESTABLISHED [facility] PATIENT. RETURN TO ER FOR WORSENING OF SYMPTOMS. AttachmentsThe following attachments cannot be sent through Care Everywhere. Pain, Measuring Your (Ivorian)Incontinence in Women, Treating with Medicine (Ivorian)documented in this encounter ED Notes Lourdes Purdy RN - 07/02/2020 2:34 PM CSTPatient c/o lower back and urinary incontinence that started 1 week ago. Patient reports that she is urinating on herself and is having to wear Depends. Called her PCP and they cannot see her for 2 weeks. She reports painful intercourse for 4-5 days. PMHx: Bladder Sling. 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 She states that additionally she's had dyspareunia. She says that she has an active sex life however she does not have an excuse for her pain. She states sometimes she has joint pain related to her arthritis. She additionally states that her sling was done in 2000 and she still have infrequent incontinence having to wear diapers. She denies fever. Has not had urology or urogynecology evaluation for her symptoms. She is currently out of insurance will have Medicare next month. Past Medical History / Immunizations Past Medical History: Diagnosis Date Arthritis Chronic back pain Chronic neck and back pain Crohn disease Tetanus received in last 5 years: Yes Childhood immunizations: Up-to-date Past Surgical History History reviewed. No pertinent surgical history. Allergies Allergies Allergen Reactions Sulfa (Sulfonamide Antibiotics) Swelling Throat swelling Ultram [Tramadol] Other - See comments contradiction with anti-depression medication Social History Substance & Sexual Activity No substance use or sexual activity history on file. Review of Systems Review of Systems Constitutional: Negative for chills, fatigue and fever. HENT: Negative for sore throat. Eyes: Negative for pain. Respiratory: Negative for cough, chest tightness, shortness of breath and stridor. Breasts: Negative for pain. Cardiovascular: Negative for chest pain and palpitations. Gastrointestinal: Negative for abdominal pain, constipation and diarrhea. Genitourinary: Positive for bladder incontinence, pelvic pain and dyspareunia. Negative for vaginal discharge and difficulty urinating. Musculoskeletal: Positive for arthralgias. Negative for back pain, joint swelling and myalgias. Skin: Negative for color change and wound. Neurological: Negative for dizziness, seizures, weakness, light-headedness and headaches. Physical Exam BP 135/74 | Pulse 84 | Temp 36.9 C (98.5 F) (Oral) | Resp 18 | Wt 56.7 kg (125 lb) | SpO2 96% | BMI 22.14 kg/m Physical Exam Vitals signs and nursing note reviewed. Constitutional: General: She is not in acute distress. Appearance: She is well-developed. She is not diaphoretic. HENT: Head: Normocephalic and atraumatic. Right Ear: External ear normal. Left Ear: External ear normal. Nose: Nose normal. Eyes: General: No scleral icterus. Conjunctiva/sclera: Conjunctivae normal. Pupils: Pupils are equal, round, and reactive to light. Neck: Musculoskeletal: Normal range of motion and neck supple. Cardiovascular: Rate and Rhythm: Normal rate and regular rhythm. Heart sounds: Normal heart sounds. Pulmonary: Effort: Pulmonary effort is normal. Breath sounds: Normal breath sounds. Abdominal: General: Bowel sounds are normal. Palpations: Abdomen is soft. Tenderness: There is no abdominal tenderness. Musculoskeletal: Normal range of motion. General: Tenderness (localized to the inguinal ligament bilaterally) present. Skin: General: Skin is warm and dry. Neurological: Mental Status: She is alert and oriented to person, place, and time. Cranial Nerves: No cranial nerve deficit. Deep Tendon Reflexes: Reflexes are normal and symmetric. Psychiatric: Behavior: Behavior normal. Thought Content: Thought content normal. Labs Recent Results (from the past 24 hour(s)) URINALYSIS Collection Time: 07/02/20 2:53 PM Result Value Ref Range APPEARANCE Clear Clear COLOR Straw (A) Yellow PH 6.0 4.8 - 8.0 SP GRAVITY 1.002 (L) 1.003 - 1.030 GLU U QUAL Normal Normal BLOOD Negative Negative KETONES Negative Negative PROTEIN Negative Negative UROBILIN Normal Normal BILIRUBIN Negative Negative NITRITE Negative Negative LEUK ANTONI Negative Negative RBC/HPF 1 0 - 3 HPF WBC/HPF <1 0 - 5 HPF BACTERIA Negative Negative SQ EPITH 2 HPF Imaging No results found for this visit on 07/02/20. Orders and Treatments Orders Placed This Encounter Procedures URINALYSIS Orders Placed This Encounter Medications HYDROcodone-acetaminophen (NORCO 5) 5-325 mg tablet 1 tablet oxybutynin 10 mg 24 hr tablet methylPREDNISolone (MEDROL, JENNY,) 4 mg tablets naproxen sodium (ANAPROX DS) 550 mg tablet Procedures See ED Procedure Note Notes & MDM Patient was evaluated for an emergency medical condition related to Back Pain and Incontinence . Differential diagnoses considered by presenting complaints but not limited to: UTI, pelvic pain, groin pain, ligament pain, RA, incontinence, sling malfunction, pelvic floor weakness, and others. Labs:were ordered, and resulted, any relevant abnormalities were considered. Imaging:Was not ordered IV fluids: not indicated Procedures:were not performed. Assessment: 55-year-old female presenting with incontinence, ligament pain, and dyspareunia. She is status post LAD or sling. Her UA is negative for infection. She does not have a fever. Will prescribe her prednisone and oxybutynin for symptomatic control of her incontinence and possible RA flare. Once patient receives her Medicaid she needs appointments with rheumatology and urology. Patient referred to Dr. George for female urology specialty. Return precautions given his symptoms worsen as documented in the discharge instructions. History, physical exam findings, results of visit, differential diagnosis, medication regimens and plan of future care have been considered. Additional MDM may be found in the ED course. Differential diagnosis considered and final disposition made based on information gathered during evaluation and may not be completely ruled out or specifically listed. Vital signs were rechecked before final disposition and determined to be stable. Diagnosis ICD-10-CM ICD-9-CM 1. Dysuria R30.0 788.1 2. Polyarthralgia M25.50 719.49 3. Bilateral groin pain R10.31 789.03 R10.32 789.04 4. Urinary incontinence, unspecified type R32 788.30 5. Dyspareunia in female N94.10 625.0 6. Rheumatoid arthritis flare M06.9 714.0 Disposition & Follow Up ED Disposition ED Disposition Condition Comment Disch - Home Stable Patient's Medications START taking these medications METHYLPREDNISOLONE (MEDROL, JENNY,) 4 MG TABLETS Take by mouth SEE- INSTRUCTIONS. follow package directions OXYBUTYNIN 10 MG 24 HR TABLET Take 1 tablet by mouth daily. CONTINUE taking these medications which have NOT CHANGED ACETAMINOPHEN-CODEINE (TYLENOL-CODEINE #3) 300-30 MG TABLET Take 1 tablet by mouth every 4 (four) hours as needed for Pain (scale 7-10). Indications: acute pain CYCLOBENZAPRINE 5 MG TABLET Take 1 tablet by mouth 3 (three) times daily. START taking Modified Medications as Prescribed Modified Medication Previous Medication NAPROXEN SODIUM (ANAPROX DS) 550 MG TABLET naproxen sodium (ANAPROX DS) 550 mg tablet Take 1 tablet by mouth 2 (two) times daily with meals. Take 1 tablet by mouth 2 (two) times daily with meals. STOP taking these medications METHYLPREDNISOLONE (MEDROL, JENNY,) 4 MG TABLETS Take by mouth SEE- INSTRUCTIONS. follow package directions METHYLPREDNISOLONE 4 MG TABLETS Take by mouth SEE-INSTRUCTIONS. follow package directions Contact information for follow-up Brock George MD Specialty: URO-UROLOGY [address] [facility] [address] [facility] [address] Instructions: For follow up of the presenting symptoms. [facility] Specialty: Obstetrics & Gynecology [address] [facility], [address] [facility] [address] Instructions: For follow up of the presenting symptoms. Julian Hinojosa Specialty: FM-FAMILY MEDICINE Relationship: PCP - [facility] [place] [address] [facility] [address] Instructions: For follow up of the presenting symptoms. Elier Chao DO 07/02/2020 4:03 PM ACTIVE COVID-19 PANDEMIC. documented in this encounter Miscellaneous Notes ED Nurse Note - Rudolph Bhakta, RN - 07/02/2020 4:15 PM CSTVerbalized understanding of discharge instructions. No signs of distress observed. RR even and unlabored. Encouraged to return if symptoms worsen. documented in this encounter Plan of Treatment Health Maintenance Due Date Last Done Comments HEPATITIS C (HCV) SCREEN 1965 Depression Screening 1975 DTaP,Tdap,and Td Vaccines (1 - 1982 Tdap) PAP SMEAR 02/27/1984 Breast Cancer Screening (MAMMOGRAM) 2003 COLON CANCER SCREENING ANNUAL 2013 FIT/FOBT COLON CANCER SCREENING FIT DNA 2013 EVERY 3 YEARS COLON CANCER SCREENING 2013 SIGMOIDOSCOPY EVERY 5 YEARS COLONOSCOPY 2013 Colorectal Cancer Screening 2013 Zoster Recombinant Vaccine 2013 (SHINGRIX) (1 of 2) INFLUENZA VACCINE (#1) 2020 PNEUMOCOCCAL 0-64 YEARS COMBINED Aged Out No longer eligible based on SERIES patient's age to complete this topic documented as of this encounter Procedures Procedure Name Priority Date/Time Associated Comments Diagnosis URINALYSIS STAT 07/02/2020 2:53 PM Dysuria Results for this CHOCOLATE PRODUCTION MACHINE OPERATOR procedure are i n the results section. NOTICE OF PRIVACY Routine 07/02/2020 2:28 PM PRACTICES CHOCOLATE PRODUCTION MACHINE OPERATOR CONSENT/REFUSAL FOR Routine 07/02/2020 2:28 PM DIAGNOSIS AND CHOCOLATE PRODUCTION MACHINE OPERATOR TREATMENT documented in this encounter Results URINALYSIS (07/02/2020 2:53 PM CHOCOLATE PRODUCTION MACHINE OPERATOR) Pathologist Sig nature APPEARANCE Clear Clear [facility] COLOR Straw (A) Yellow [facility] PH 6.0 4.8 - 8.0 [facility] SP GRAVITY 1.002 (L) 1.003 - 1.030 [facility] GLU U QUAL Normal Normal [facility] BLOOD Negative Negative [facility] KETONES Negative Negative [facility] PROTEIN Negative Negative [facility] UROBILIN Normal Normal [facility] BILIRUBIN Negative Negative [facility] NITRITE Negative Negative [facility] LEUK ANTONI Negative Negative [facility] RBC/HPF 1 0 - 3 HPF [facility] WBC/HPF <1 0 - 5 HPF [facility] BACTERIA Negative Negative [facility] SQ EPITH 2 HPF [facility] Specimen Urine - URINE, CLEAN CATCH Performing Organization Address City/State/Zipcode Phone Number [facility] CLIA: [id number] [place] [address] documented in this encounter Visit Diagnoses Diagnosis Dysuria - Primary Polyarthralgia Pain in joint, multiple sites Bilateral groin pain Abdominal pain, unspecified site Urinary incontinence, unspecified type Dyspareunia in female Rheumatoid arthritis flare Rheumatoid arthritis documented in this encounter Administered Medications Medication Order MAR Action Action Date Dose Rate Site HYDROcodone-acetaminophen Given 07/02/2020 3:06 PM CHOCOLATE PRODUCTION MACHINE OPERATOR 1 tablet (NORCO 5) 5-325 mg tablet 1 tablet 1 tablet, Oral, ONCE, 1 dose, Yesy 07/02/20 at 1615, VALERIE documented in this encounter Insurance Payer Benefit Plan / Subscriber ID Effective Phone Address T ype Group Dates MEDICAID MEDICAID SSI PENDING 2020-Pres [address] [place] [address] documented as of this encounter"
--- OUTSIDE RECORDS SUMMARY | 2020-09-16 08:03 | XMS REPORT | Continuity of Care Document ---
:1965 Author Organization [facility] t Address [address] [place] [address] Care Team Providers Name Role Phone Ashish GUTIERREZ Gaurav Primary Care Physician Singer SHANKAR Attending Clinician Luana HOROWITZ, R Attending Clinician Doctor Unassigned, Name Attending Clinician Unavailable Marce Hinojosa Attending Clinician Henrry Ernandez Attending Clinician Chintan Francis Attending Clinician Billieella Attending Clinician Henrry Ernandez Admitting Clinician Terminshanta Admitting Clinician Problems Condition Condition Condition Status Onset Resolution Last Treating Co mments Source Name Details Category Date Date Treatment Clinician Date Chest pain Chest pain Disease Active [place] of of 6-18 Methodi uncertain uncertain 00:00: st etiology etiology 00 DX: RENAL Diagnosis Active 2014-05-27 Memoria ANGIOGRAM 05-06 13:44:00 l DX: 00:00: [place] RENAL 00 ANGIOGRAM Active 05/06/2014 [facility] BOWEL Diagnosis Active 2014-01-07 Mem oria OBSTRUCTIO 12-30 21:50:00 l N BOWEL 00:00: [place] OBSTRUCTIO 00 N Active 12/30/2013 [facility] 795.79 Diagnosis Active 2000-2015-01-05 Mem oria V82.2 - 10:04:00 l 724.2 795.79 00:00: [place] 719.43 V82.2 00 726.31 724.2 719.43 726.31 Active 08/28/2000 [facility] Crohn's Problem Resolve 2015-02-07 Mem oria disease d 00:48:36 l (disorder) Crohn's Her giles disease (disorder) Resolved Problem 02/07/2015 J CARLOS Morin, [place], [facility] Hyperchole Problem Active 2015-02-07 M emoria sterolemia 00:48:36 l (disorder) Moncho n Hyperchole sterolemia (disorder) Active Problem 02/07/2015 J CARLOS Morin,[facility] Hypertensi Problem Active 2015-02-07 M emoria ve 00:48:36 l disorder, [place] systemic Hypertensi arterial ve (disorder) disorder, systemic arterial (disorder) Active Problem 02/07/2015 J CARLOS Morin,[facility] Sleep Problem Active 2015-02-07 Memor ia apnea 00:48:36 l (finding) Sleep Moncho n apnea (finding) Active Problem 02/07/2015 J CARLOS Morin,[facility] INTESTINAL Diagnosis Active 2014-01-07 Memoria OBSTRUCT 21:50:00 l NOS [place] INTESTINAL OBSTRUCT NOS Active [facility] Allergies, Adverse Reactions, Alerts Allergy Allergy Status Severity Reaction(s) Onset Inactive Treating Comm ents Source Name Type Date Date Clinician Sulfa Propensi Active Magdiel (Sulfona ty to 4-15 Health mide adverse 00:00: Antibiot reaction 00 ics) s to drug Sulfa Propensi Active Onel (Sulfona ty to 6-18 Methodi mide adverse 00:00: st Antibiot reaction 00 ics) s to drug NKFA NKFA Active Memoria l [place] sulfa sulfa Active Memoria drugs drugs l [place] Social History Social Habit Start Date Stop Date Quantity Comments Source Sex Assigned At [facility] alth Tobacco use and 2018-12-10 2018-12-10 Current user [facility] exposure 00:00:00 00:00:00 Alcohol intake 2018-12-10 2018-12-10 Ex-drinker Magdiel Savage lt 00:00:00 00:00:00 (finding) Social History 2013-12-30 2013-12-30 [facility] Aundrea glover 13:29:20 13:29:20 Smoking Status Start Date Stop Date Source Current every day smoker 2018-12-10 00:00:00 [facility] Medications Ordered Filled Start Stop Current Ordering Indication Dosage Frequency Signature Comments Components Source Medication Medication Date Date Medication? Clinician (SIG) Name Name gabapentin Yes Chronic 300mg Take 1 H arris (NEURONTIN) 4-15 left-sided capsule by Health 300 mg 00:00: low back mouth 2 capsule 00 pain with times sciatica, daily as sciatica needed for laterality Pain. unspecified cyclobenzap Yes Chronic 10mg Take 1 H arris rine 4-15 left-sided tablet by Heal th (FLEXERIL) 00:00: low back mouth 2 10 mg 00 pain with times tablet sciatica, daily as sciatica needed for laterality Muscle unspecified Spasms. metoprolol Yes 25mg Q.[id number] Take 25 mg Sykes tartrate 6-19 [id number] by mouth 3 Methodi (LOPRESSOR) 18:26: 3D (three) st 25 mg 50 times a tablet day. Note: Rx label states BID but pt takes TID. cyanocobala Yes 1{tbl} QD Take 1 [place] min, 6-19 tablet by [facility] vitamin 18:26: mouth st B-12, 50 daily. (VITAMIN B-12 ORAL) naproxen Yes 440mg Q24H Take 440 [place] sodium 6-19 mg by Methodi (ALEVE) 220 18:26: mouth st MG tablet 50 daily as needed for mild pain. citalopram Yes 40mg QD Take 40 mg [place] (CeleXA) 40 6-19 by mouth Meth floyd MG tablet 18:26: nightly. st 50 Ativan No Notes: Memoria 05-20 (Same as: l 14:26: Ativan) Acetaminoph No Notes: Do M emoria en 05-20 not exceed l 13:34: 4 gm/day. (Same as: Tylenol) rOPINIRole Yes 1 mg = 1 Mem oria 1 mg oral 05-20 tab, PO, l tablet 12:18: Daily, 0 [place] 00 Refill(s) Klor-Con 10 Yes 10 mEq, Mem oria 05-20 PO, Daily, l 12:18: 0 Refill(s) Hydrochloro Yes 1 tab, PO, Memoria thiazide 05-20 Daily, # l 12.5 MG / 03:00: 30 tab, 0 Her giles Refill(s) Potassium 50 MG Oral Tablet aspirin Yes 81 mg, PO, Mau agata 05-19 Daily l 14:48: aripiprazol Yes 15 mg = 1 M emoria e 15 MG 05-19 tab, PO, l Oral Tablet 14:47: Daily Alice nn [] Clonidine Yes PO, Memoria 05-19 Bedtime l 14:47: Ibuprofen Yes 800 mg, Memor ia 05-19 PO, BID l 14:46: Miralax No Notes: Memoria 5-09 Dissolve l 14:00: in 8 oz of water or juice. (Same as: Miralax) Dulcolax No Notes: Memoria Laxative 08 (Same As: l 15:24: Dulcolax, Bisco-Lax) Sertraline No Notes: Memor ia 5-07 (Same as: l 14:00: Zoloft) Methocarbam No Notes: Mau agata ol 5-07 (Same l 14:00: as:Robaxin ) aripiprazol No Notes: Mau agata e 5-07 Non-Formul l 14:00: elva Drug. (Same as: ) Entocort EC No 9 mg, Memor ia 5-07 Route: PO, l 14:00: Drug form: ERCAP, Daily, Dosing Weight 71.818, kg, Start date: 01/01/14 9:00:00, Duration: 30 day, Stop date: 01/30/14 9:00:00 Budesonide No Notes: Memor ia 5-07 (Same As: l 14:00: Entocort [place] 00 EC or Budesonide 3 mg EC / ERC) "Do Not Crush" Protonix No Notes: Memoria 5-07 Tablet l 12:30: should not [place] 00 be chewed or crushed. (Same as: Protonix) Dicyclomine No Notes: Mau agata 5-07 (Same as: l 04:30: Bentyl) [place] 00 Trazodone No Notes: Memori a Hydrochlori 5-07 (Same As: l de 100 MG 02:00: Desyrel) Herm booker Oral Tablet 00 Zocor No Notes: Memoria 5-07 (Same as: l 02:00: Zocor) [place] Ditropan XL No Notes: Mau agata 5-07 (Same as: l 02:00: Ditropan [place] 00 XL) "Do Not Crush" Pamelor No Notes: Memoria 5-07 (Same l 02:00: as:Pamelor [place] 00 , Aventyl) metoprolol No Notes: Memor ia tartrate 5-07 (Same as: l 02:00: Lopressor) [place] 00 Pentasa No Notes: Memoria 5-06 (Same as: l 22:00: Pentasa) [place] Do not open capsule. "Do Not Crush" Ketorolac No 4 days. Mau agata Tromethamin 5-06 l e 15 MG/ML 12:43: [place] Injectable 00 Solution Nicotine No Notes: Memoria 5-05 (Same as: l 22:00: Habitrol) [place] "Remove old patch before applicatio n of new patch" Protonix No Notes: For Mem oria 5-05 IV push l 21:30: reconstitu [place] 00 te with 10 ml 0.9% sodium chloride and push over 2 minutes. (Same as: Protonix) 24 HR Yes 9 mg = 3 Memoria Budesonide 5-05 cap, PO, l 3 MG 11:54: Daily, # [place] Extended 00 90 cap, 0 Release Refill(s) Enteric Coated Capsule [Entocort] metoprolol Yes 25 mg = 1 Me moria tartrate 25 5-05 tab, PO, l mg oral 11:54: BID, # 180 Herm booker tablet 00 tab, 0 Refill(s) ARIPiprazol Yes 15 mg = 1 M emoria e 15 mg 5-05 tab, PO, l oral tablet 11:54: Daily, # He rmann 00 30 tab, 0 Refill(s) mesalamine Yes 2,000 mg = M emoria 500 MG 5-05 4 cap, l Extended 11:54: BID, 0 [place] Release 00 Refill(s) Capsule [Pentasa] sertraline Yes 100 mg = 1 M emoria 100 mg oral 5-05 tab, PO, l tablet 11:54: Daily, # [place] 00 30 tab, 0 Refill(s) dicyclomine Yes 20 mg = 1 M emoria 20 mg oral 5-05 tab, PO, l tablet 11:54: BID, # 28 Moncho n 00 tab, 0 Refill(s) mercaptopur Yes 100 MG/M2, Memoria ine 50 mg 5-05 PO, Daily, l oral tablet 11:54: # 30 tab, H [place] 00 0 Refill(s) ibuprofen Yes 600 mg = 1 Me moria 600 mg oral 5-05 tab, PO, l tablet 11:54: BID, # 120 Alice nn 00 tab, 0 Refill(s) Simvastatin Yes 20 mg = 1 M emoria 20 MG Oral 5-05 tab, PO, l Tablet 11:54: Bedtime, # Alice nn [Zocor] 00 30 tab, 0 Refill(s) Nortriptyli Yes 50 mg = 1 M emoria ne 50 MG 5-05 cap, PO, l Oral 11:54: Bedtime, # [place] Capsule 00 90 cap, 0 [Pamelor] Refill(s) 24 HR Yes 10 mg = 1 Memoria Oxybutynin 5-05 tab, PO, l chloride 10 11:54: Bedtime, # [place] MG Extended 00 30 tab, 0 Release Refill(s) Tablet [Ditropan] Trazodone 2014-0 Yes 100 mg = 1 Me moria Hydrochlori 5-05 tab, PO, l de 100 MG 11:54: Bedtime, # Nathan rmbooker Oral Tablet 00 90 tab, 0 Refill(s) Ranitidine Yes 300 mg = 1 M emoria 300 MG Oral 5-05 tab, PO, l Tablet 11:54: Daily, # [place] [Zantac] 00 30 tab, 0 Refill(s) Sodium Yes 0 Memoria Bicarbonate 5-05 Refill(s) l 11:54: [place] 00 methocarbam Yes 750 mg = 1 Memoria ol 750 mg 5-05 tab, PO, l oral tablet 11:54: Daily, # Nathan rmbooker 00 60 tab, 0 Refill(s) Omeprazole Yes 40 mg = 1 Me moria 40 MG 5-05 cap, PO, l Enteric 11:54: Daily, # Mon[place] n Coated 00 30 cap, 0 Capsule Refill(s) [Prilosec] Morphine No Notes: Memoria 5-05 (Same l 09:01: as:MORPhin [place] 00 e Sulfate) Zofran No Notes: Memoria 5-05 (Same as: l 09:00: Zofran) [place] 00 Lovenox No Notes: Memoria 5-05 (Same as: l 09:00: Lovenox) [place] 00 normal No 1,000 mL, Memori a saline 0.9% 5-05 Rate: 100 l IV 1,000 mL 08:52: ml/hr, Herm booker Infuse over: 10 hr, Route: IV, Dosing Weight 71.818 kg, Total Volume: 1,000, Start date: 12/30/13 3:52:00, Duration: 30 day, Stop date: 01/29/14 3:51:00 Immunizations Ordered Immunization Filled Immunization Date Status Commen Source Name Name Tdap 2018-04-13 [facility] 00:00:00 [facility] Vital Signs Vital Name Observation Time Observation Value Comments Source Weight 2014-05-16 14:54:00 Morenita Agrawal BMI Calculated 2014-05-16 14:54:00 Morgan Mccann Height 2014-05-16 14:54:00 160.02 cm Morenita Agrawal Respitory Rate 2014-01-02 20:58:00 Memori al [place] Heart Rate 2014-01-02 20:58:00 [facility] [place] Temperature Oral (F) 2014-01-02 20:58:00 98.4 F [facility] [place] Diastolic (mm Hg) 2014-01-02 20:58:00 Mem orial [place] Systolic (mm Hg) 2014-01-02 20:58:00 Mau rial [place] Temperature Oral (F) 2014-01-02 16:23:00 98.2 F Memorial [place] Heart Rate 2014-01-02 16:23:00 [facility] [place] Respitory Rate 2014-01-02 16:23:00 Memori al [place] Systolic (mm Hg) 2014-01-02 16:23:00 Mau rial [place] Diastolic (mm Hg) 2014-01-02 16:23:00 Mem orial [place] Diastolic (mm Hg) 2014-01-02 12:20:00 Mem orial [place] Systolic (mm Hg) 2014-01-02 12:20:00 Mau rial [place] Respitory Rate 2014-01-02 12:20:00 Memori al [place] Temperature Oral (F) 2014-01-02 12:20:00 98.5 F [facility] [place] Heart Rate 2014-01-02 12:20:00 [facility] [place] Weight 2013-12-30 08:54:00 [facility] [place] Height 2013-12-30 08:54:00 162.56 cm [facility] [place] BMI Calculated 2013-12-30 08:54:00 Memori al [place] Weight 2013-12-30 08:52:00 [facility] [place] BMI Calculated 2013-12-30 08:52:00 Memori al [place] Height 2013-12-30 08:52:00 162.56 cm [facility] [place] Weight 2013-12-30 08:40:00 [facility] [place] BMI Calculated 2013-12-30 08:40:00 Memori al [place] Height 2013-12-30 08:40:00 162.56 cm [facility] [place] Procedures Procedure Date / Time Performed Performing Clinician [facility] rudi Abdominal aorta angiogram [facility] [place] Abdominal hysterectomy [facility] Angiography of renal [facility] arteries, bilateral Appendectomy [facility] Superior mesenteric [facility] angiography Suspension of bladder [facility] ermann Tonsillectomy [facility] Bladder augmentation [facility] Plan of Care Planned Activity Planned Date Details Comments Source Future Scheduled 2020-05-28 IMM Influenza Magdiel Evansa [facility] Test 00:00:00 Seasonal May to October (>/= 19 yrs) [code = IMM Influenza Seasonal May to October (>/= 19 yrs)] Future Scheduled 2020-03-28 INFLUENZA VACCINE [place] [facility] Test 00:00:00 [code = INFLUENZA VACCINE] Future Scheduled 2017-07-28 BREAST CANCER [facility]odist Test 00:00:00 SCREENING [code = BREAST CANCER SCREENING] Future Scheduled 2013 COLONOSCOPY SCREENING [place] [facility] Test 00:00:00 [code = COLONOSCOPY SCREENING] Future Scheduled 2013 SHINGLES VACCINES [place] [facility] Test 00:00:00 (#1) [code = SHINGLES VACCINES (#1)] Future Scheduled 2013 Screening for Magdiel Evansa [facility] Test 00:00:00 malignant neoplasm of colon (procedure) [code = 205407440] Future Scheduled 2003 Breast Cancer Scrn [facility] Test 00:00:00 (Yearly) [code = Breast Cancer Scrn (Yearly)] Future Scheduled 1993 Screening for Magdiel Evansa lth Test 00:00:00 malignant neoplasm of cervix (procedure) [code = 388715419] Future Scheduled 1993 Screening for Magdiel Evansa [facility]th Test 00:00:00 malignant neoplasm of cervix (procedure) [code = 341861254] Future Scheduled 1984-02-27 Screening for [facility] thodist Test 00:00:00 malignant neoplasm of cervix (procedure) [code = 676442320] Future Scheduled 1979 COVID-19 VACCINE (1 [place] [facility] Test 00:00:00 of 2) [code = COVID-19 VACCINE (1 of 2)] Encounters Start End Encounter Admission Attending Care Care Encounter Source Date/Time Date/Time Type Type Clinicians Facility Department ID 2020-07-02 2020-07-02 Emergency GENEVA Chao [id number] 14:38:00 16:16:00 Elier Chris [id number] [place] [id number] [place] [id number] 2020-04-29 2020-04-29 Emergency GENEVA Craft [id number] 12:18:00 15:08:00 Zoraida Chris [id number] [place] 4.2.7.2.686 [place] [id number] [id number] 2020-03-17 2020-03-17 Emergency GENEVA Chao [id number] 11:37:56 13:51:00 Elier Chris [id number] [place] 4.2.7.2.686 [place] [id number] 084 2020-03-17 2020-03-17 Orders Doctor LUCIANO [id number] 00:00:00 00:00:00 Only Unassigned, JUANCARLOS [id number] [place] [id number] 2018-12-10 2018-12-10 Outpatient [facility] [id number] Magdiel 16:03:58 16:03:58 Health 2018-12-10 2018-12-10 Emergency [facility] [id number] Magdiel 11:20:39 11:20:39 Health 2017-09-01 2017-09-01 Emergency [facility] [id number] Magdiel 10:29:00 10:29:00 [facility] 2015-02-04 2015-02-04 Outpatient INES Hinojosa [id number] 08:00:00 23:59:00 Julian Zheng 00 2015-01-05 2015-01-05 Outpatient Marilee CHACON [id number] 10:04:00 23:59:00 Rupesh de la cruz 2014-05-20 2014-05-20 Outpatient INES Francis [id number] 06:14:00 14:30:00 Larry Woodson 00 2013-12-30 2014-01-02 Outpatient INES Condon [id number] 02:50:00 22:00:00 Rivera 25 Results Test Description Test Time Test Comments Results Result Comments Source CHEM PANEL 2014-05-19 8 [facility] [place] nn 14:26:00 CHEM PANEL 2014-05-19 91 [facility] [place] nn 14:26:00 CHEM PANEL 2014-05-19 29 [facility] [place] nn 14:26:00 CHEM PANEL 2014-05-19 6.7 [facility] [place] nn 14:26:00 CHEM PANEL 2014-05-19 86 [facility] [place] nn 14:26:00 CHEM PANEL 2014-05-19 0.8 [facility] [place] nn 14:26:00 CHEM PANEL 2014-05-19 104 [facility] [place] nn 14:26:00 CHEM PANEL 2014-05-19 3.7 [facility] [place] nn 14:26:00 CHEM PANEL 2014-05-19 136 [facility] [place] nn 14:26:00 CHEM PANEL 2014-05-19 9.7 [facility] [place] nn 14:26:00 HEMATOLOGY 2014-05-19 101.6 [facility] [place] nn 14:26:00 HEMATOLOGY 2014-05-19 14:26:00 Test Item Value Reference Range Interpretation Comme nts MCH (test code = MCH) 35.5 pg 27.0-31.0 Memorial XsmofpbVXDSLXMSGX5044-27-65 14:26:0013.3[facility]annHEMATOLOGY 2014-05-19 14:26:0037.9[facility] HgivbeoNDPGTOJOFJ5189-03-61 14:26:003.73[facility] XsyoxpzJVRFXVTUZW4986-20-38 14:26:006.1[facility] HgatmbqBULFOHASQJ8921-21-32 14:26:008.0[facility] SkpcalvUZGMAEAAFI1313-21-13 14:26:0017.2[facility] [place] VTDAYKUSIQ8653-94-50 14:26:62449Fuemtrjl XzkgqxjWYVRKTJJVE8310-32-22 14:26:00 35.0[facility] HnuyhbkAMDHLEVYZA3648-49-37 14:26:000.93[facility] HermannHEMATOLOGY 2014-05-19 14:26:00 Test Item Value Reference Range Interpretation Comments PT (test code = PT) 12.4 s 12.0-14.7 [facility] HermannCHEM PFVZC5412-74-71 09:42:002.0[facility] HermannCHEM PANEL 2014-01-01 09:42:80029Kmmuvemo HermannCHEM KXVFE1961-51-56 09:42:004[facility] HermannCHEM TFXHI9930-84-71 09:42:003.8[facility] HermannCHEM FEIPJ3829-88-74 09:42:000.5[facility] HermannCHEM TKOZY1588-41-20 09:42:0094[facility] HermannCHEM QFPJK4480-10-87 09:42:74806Andefioi HermannCHEM APNWQ9157-41-44 09:42:008.7 [facility] HermannCHEM ADWOD9999-96-46 09:42:63904Kpqrqzdx HermannCHEM PANEL 2014-01-01 09:42:0030[facility] HermannCHEM PJLME3930-41-39 09:42:0010.8[facility] JdqowkcDDBZHGUOIY1802-78-38 09:42:004.4[facility] FouvfmvBSYZKIDAEX0814-18-52 09:42:003.80[facility] VspuoipWXWGQYGOFQ8967-54-69 09:42:00 Test Item Value Reference Range Interpretation Comments MCH (test code = MCH) 31.1 pg 27.0-31.0 Memorial PqawwdoEXCESAWEZB3366-19-94 09:42:0011.8[facility] HermannHEMATOLOGY 2014-01-01 09:42:0034.5[facility] TkgedkvBNMYPBJGAO0980-68-02 09:42:0090.6[facility] JcsjlheWOONJTPVZD1063-13-39 09:42:0016.3[facility] KkamzmaEAZRUHATWT0524-54-81 09:42:0034.3[facility] YfupkhuNZREBMTSZW6446-67-38 09:42:97387Zwyotsvw [place] YYFCGAJXFR0137-48-07 09:42:007.9[facility] BeqmggrRJNEPKJAVJ3147-01-93 09:42:001.6 Memorial SqiickqGHCAVTEIDT7512-26-52 09:42:000.2[facility] HermannHEMATOLOGY 2014-01-01 09:42:002.6[facility] SxvncjpJMFUHSAAYG6771-80-22 09:42:007.4[facility] FxevjxtFRPRZOAWWS1932-37-24 09:42:001.3[facility] ZfteiilNQYAVTKQIS5736-09-47 09:42:000.3[facility] CjeuaakQLSKBZVEWG9701-35-58 09:42:000.1[facility] [place] LCUPZYLOXW8073-61-91 09:42:000.0[facility] XetyeseTKVBXLKWQZ2872-89-23 09:42:00 30.7Mem[facility] DeibpkyKCRPUISVPW6695-95-55 09:42:0060.1[facility] HermannCHEM PANEL 2013-12-30 12:13:001.8[facility] HermannCHEM QUPIG8829-88-05 12:13:002.6[facility] HermannCHEM AKEJV0048-48-04 12:13:002.8[facility] HermannCHEM YCSUF3843-96-64 12:13:001.2[facility] HermannCHEM CVFDH6510-26-22 12:13:0010[facility] HermannCHEM NNVYN9700-73-70 12:13:006.9[facility] HermannCHEM TMVHO8944-70-99 12:13:82943 [facility] HermannCHEM FMCXF2494-46-51 12:13:0084[facility] HermannCHEM PANEL 2013-12-30 12:13:003.9[facility] HermannCHEM LELVL9441-99-13 12:13:85700Nbsshkkt HermannCHEM ORZYK4648-30-69 12:13:000.7[facility] HermannCHEM LMNTB9246-62-06 12:13:007[facility] HermannCHEM CVDYM3558-48-70 12:13:000.3[facility] HermannCHEM HLEUC7775-09-56 12:13:0071[facility] HermannCHEM JPEXS2506-34-80 12:13:0021 [facility] HermannCHEM IUZRM8160-93-53 12:13:0020[facility] HermannCHEM PANEL 2013-12-30 12:13:006.1[facility] HermannCHEM CSPNJ7802-72-78 12:13:0033[facility] HermannCHEM HMCCL0677-12-69 12:13:003.3[facility] HermannCHEM VZJRI6953-76-80 12:13:008.4[facility] HermannCHEM OTNRZ8277-64-81 12:13:87266Rzyqznog [place] IHGZPUHHLH9028-32-32 12:13:000.0[facility] CwylhzkLVUHQIMXJR4182-63-96 12:13:00 63.5[facility] SixjqwyVANHHASJLO3470-08-51 12:13:000.3[facility] HermannHEMATOLOGY 2013-12-30 12:13:000.2[facility] TezyytjRHIXUEZNXG1162-82-55 12:13:001.5[facility] BpkggqoIYFCTTVZRF5768-97-44 12:13:003.3[facility] VyqdusfGAASVJJNEN5891-67-74 12:13:000.1[facility]orial YzwvzybRZKNUMSKPQ0631-65-94 12:13:0028.9[facility] [place] AUOTTJUBEO2228-54-40 12:13:006.2[facility] VnvkuhsSLARYUPHYV4469-02-76 12:13:001.2 Memorial TvebtqvPHDDXSDEVY3331-27-22 12:13:0034.3[facility] HermannHEMATOLOGY 2013-12-30 12:13:0016.5[facility] HskdqtkGEMGFSTUKI4628-64-49 12:13:00 Test Item Value Reference Range Interpretation Comments MCH (test code = MCH) 31.5 pg 27.0-31.0 Memorial JyfccsuQWZDMURRTF2709-89-02 12:13:0091.9[facility] HermannHEMATOLOGY 2013-12-30 12:13:73113Rjkniaks SmaczejNFXPDABORU9656-25-58 12:13:007.9[facility] CybiqapOTHYPUTVRB8900-23-27 12:13:003.91[facility] ToizkirUKNEJHOBQM6278-04-78 12:13:0035.9[facility] TamywfcIGXYIEHAIN4199-69-17 12:13:0012.3[facility] [place] EJGYYMLEUH6073-03-94 12:13:005.1[facility] [place]
[2020-09-16] MEDS ORDERED: NA CHLORIDE 0.9% 1,000 ML ONE ×2 (08:23→17:56)
[2020-09-16] MEDS ORDERED: LEVALBUTEROL 1.25 MG/3 ML NEB ONE (08:23)
[2020-09-16] MEDS ORDERED: METHYLPREDNISOLONE 125 MG INJ ONE (08:23)
[2020-09-16] MEDS ORDERED: MAGNESIUM SULFATE 1 gm IVPB 1 GM/100 ML BAG IV ONE (08:24)
[2020-09-16 08:31] LABS: Arterial Blood Carboxyhemoglob 2.2 % (0-1.5); Blood Gas Oxyhemoglobin 84.9 % (94-97); Blood O2 Saturation 87.3 % (92-98.5)
[2020-09-16 08:31] LABS: Absolute Lymphocytes (CBC) 0.8 K/uL (0.7-4.9); Basophils % 0.3 % (0-1.3); Hematocrit 48.1 % (36.0-45.0); Lymphocytes % 31.4 % (15.3-44.8); MPV 9.2 fL (7.6-11.3); RBC Red Blood Cell Count 4.93 M/uL (3.86-4.86)
[2020-09-16 08:37] LABS: Protime INR 0.98
[2020-09-16 08:48] LABS: ALT/SGPT 235 U/L (12-78); AST/SGOT 178 U/L (15-37); Albumin 2.6 g/dL (3.4-5.0); Alkaline Phosphatase 86 U/L (45-117); BUN Blood Urea Nitrogen 19 mg/dL (7-18); Bicarbonate 25 mmol/L (21-32); Bilirubin Direct 0.4 mg/dL (0-0.2); Bilirubin Total 0.8 mg/dL (0.2-1.0); Creatine Phosphokinase 350 U/L (26-192); Glucose Level 114 mg/dL (74-106); Lipase 52 U/L (73-393); Sodium Level 147 mmol/L (136-145); Troponin (Emerg Dept Use Only) < 0.02 ng/mL (0.0-0.045)
[2020-09-16 09:00] LABS: Urine Bacteria <20 /HPF (<20); Urine RBC <5 /HPF (NONE SEEN)
[2020-09-16 09:29] LABS: SARS-COV-2 RT PCR NEGATIVE (NEGATIVE)
--- NOTE | 2020-09-16 09:31 | RAD REPORT ---
EXAM DESCRIPTION: CT - Head Brain Wo Cont - 09/16/2020 9:14 am CLINICAL HISTORY: Alteration of awareness/confusion COMPARISON: None TECHNIQUE: Computed axial tomography of the head was obtained. IV contrast was not requested. All CT scans are performed using dose optimization technique as appropriate and may include automated exposure control or mA/KV adjustment according to patient size. FINDINGS: An intracranial bleed is not seen . The ventricles are normal in caliber. No extra-axial fluid collection is noted. Small amount of fluid is present within the right maxillary sinus IMPRESSION: No acute intracranial abnormality is seen. If patient's symptoms persist MRI of the bra in would be recommended. Small amount of fluid right maxillary sinus may indicate acute sinusitis
[2020-09-16 09:38] LABS: Blood Morphology Comment NOT SEEN (NOT SEEN); Platelet Estimate ADEQ; Platelets, Giant RARE
--- NOTE | 2020-09-16 09:48 | RAD REPORT ---
EXAM DESCRIPTION: CT - Chest For Pe Angio - 09/16/2020 9:13 am CLINICAL HISTORY: sob COMPARISON: None. TECHNIQUE: Dynamically enhanced axial 3 mm thick images of the chest were obtained during administra tion of <100> mL Isovue 370 IV contrast. Coronal and oblique reconstruction images were generated and reviewed. Exam utilizes a protocol for optimal evaluation of pulmonary arterial tree. Maximum intensity projections 3D imaging was utilized All CT scans are performed using dose optimization technique as appropriate and may include automated exposure control or mA/KV adjustment according to patient size. FINDINGS: A pulmonary embolus is not seen. A thoracic aortic aneurysm is not noted. A pleural effusion is not seen. A pericardial effusion is not seen. Consolidation involves primarily the right lower lobe. Additional alveolar opacities are present with in right middle and right upper lobes. There is some volume loss. IMPRESSION: Negative for a pulmonary embolism. Large right pneumonia with some volume loss. This should be followed until it has cleared to help exc lude a post obstructive process/underlying mass
--- NOTE | 2020-09-16 09:53 | RAD REPORT ---
EXAM DESCRIPTION: CT - Abdomen Pelvis W Contrast - 09/16/2020 9:13 am CLINICAL HISTORY: Abdominal pain COMPARISON: none. TECHNIQUE: Computed axial tomography of the abdomen pelvis was obtained. 100 cc Isovue-300 was admin istered intravenously. Oral contrast was not requested which limits evaluation of bowel. All CT scans are performed using dose optimization technique as appropriate and may include automated exposure control or mA/KV adjustment according to patient size. FINDINGS: Some of the images are degraded by patient motion artifact Fatty liver. The liver is mildly enlarged. The spleen, pancreas, adrenals and kidneys unremarkable. Voss catheter within the bladder. There is no evidence of diverticulitis. Hysterectomy Cement has been placed into an old L2 vertebral body fracture. Sclerosis involving the vertebral endp lates of L3, L4, L5 and S1 probably secondary to degenerative changes IMPRESSION: Mild hepatomegaly with fatty liver
--- NOTE | 2020-09-16 10:04 | RAD REPORT ---
EXAM DESCRIPTION: Joshua Single View09/16/2020 9:19 am CLINICAL HISTORY: Shortness of breath COMPARISON: July 2020 FINDINGS: Moderate to large right lung pneumonia with volume loss Left lung appears clear of acute infiltrate. The heart is borderline enlarged
[2020-09-16 10:19] LABS: Barbiturates NEGATIVE (NEGATIVE); Benzodiazepines POSITIVE (NEGATIVE); Cocaine NEGATIVE (NEGATIVE); METHAMPHETAM NEGATIVE (NEGATIVE); Methadone NEGATIVE (NEGATIVE); Opiates NEGATIVE (NEGATIVE); Phencyclidine NEGATIVE (NEGATIVE); THC Cannibis POSITIVE (NEGATIVE)
--- NOTE | 2020-09-16 10:26 | ER ---
Nurse's Notes [facility] Name: Tita Elizabeth Age: 55 yrs Sex: Female : 1965 Arrival Date: 09/16/2020 Time: 07:57 Bed 3 Private MD: Diagnosis: Pneumonia, unspecified organism;Hypoxemia;Sepsis, unspecified organism Presentation: 09/16 07:58 Chief complaint: EMS states: Found on toilet, altered, SBP 80s. HR 120, R 82, SpO2 66% hb on RA, NS to 22g RFA, BGL 105. Family on scene reports she may have taken Seroquel and/or Xanax. Coronavirus screen: Client presents with at least one sign or symptom that may indicate coronavirus-19. Standard/surgical mask placed on the client. Provider contacted for isolation considerations. Ebola Screen: No symptoms or risks identified at this time. Initial Sepsis Screen: Does the patient meet any 2 criteria? Altered Mental Status. No. Patient's initial sepsis screen is negative. Does the patient have a suspected source of infection? No. Patient's initial sepsis screen is negative. Risk Assessment: Do you want to hurt yourself or someone else? Unable to obtain. Onset of symptoms was September 16, 2020. 07:58 Method Of Arrival: EMS: [facility] 07:58 Acuity: JAY 2 hb Triage Assessment: 08:00 General: Appears distressed, Behavior is cooperative. Pain: Unable to use pain scale. hb Patient is disoriented. FLACC scale score is 0 out of 10. EENT: No signs and/or symptoms were reported regarding the EENT system. Neuro: Level of Consciousness is obtunded. Cardiovascular: Capillary refill is > 3 seconds Patient's skin is warm and dry. Rhythm is sinus tachycardia. Respiratory: Airway is patent Respiratory effort is labored, Respiratory pattern is tachypnea Breath sounds are coarse bilaterally. GI: No signs and/or symptoms were reported involving the gastrointestinal system. : No signs and/or symptoms were reported regarding the genitourinary system. Derm: Skin is dry, Skin is pale, Skin temperature is warm. Musculoskeletal: No signs and/or symptoms reported regarding the musculoskeletal system. Historical: - Allergies: 08:02 Sulfa (Sulfonamide Antibiotics); hb - PMHx: 08:02 Arthritis; Hypertension; lyme disease; hb - PSHx: 08:02 Bladder sling; Appendectomy; Hysterectomy; hb - Immunization history:: Adult Immunizations unknown. - Social history:: Smoking status: unknown. - Family history:: not pertinent. - Hospitalizations: : No recent hospitalization is reported. Screenin:02 Abuse screen: unable to obtain. Nutritional screening: No deficits noted. Tuberculosis hb screening: unable to obtain. Fall Risk Total Pizarro Fall Scale indicates High Risk Score (45 or more points). Fall prevention measures have been instituted. Side Rails Up X 2 Placed Close to Nursing Station Frequent Obs/Assessments Occuring As available patient and family educated on Fall Prevention Program and Strategies. Assessment: 08:01 General: See triage assessment. hb 08:44 Reassessment: Mary Alcantara [phone]. hb 09:30 Reassessment: No changes from previously documented assessment. Patient and/or family hb updated on plan of care and expected duration. Pain level reassessed. 10:30 Reassessment: No changes from previously documented assessment. Patient and/or family hb updated on plan of care and expected duration. Pain level reassessed. Admission ordered, awaiting room assignment at this time. 10:58 Reassessment: Placed on Venturi mask 40%. hb 11:24 Reassessment: Dr Tobar at the bedside. sv 11:30 Reassessment: No changes from previously documented assessment. Patient and/or family hb updated on plan of care and expected duration. Pain level reassessed. 11:37 Reassessment: Desaturated to low 80s while on venturi mask, placed back on NRB. hb 12:30 Reassessment: SpO2 >94% on NRB. Remains obtunded. hb 13:30 Reassessment: No changes from previously documented assessment. Patient and/or family hb updated on plan of care and expected duration. Pain level reassessed. 14:30 Reassessment: No changes from previously documented assessment. Patient and/or family hb updated on plan of care and expected duration. Pain level reassessed. 15:30 Reassessment: Admission ordered, awaiting room assignment at this time. Pt remains on hb NRB, speaking in short sentences, cooperative, confused, requires frequent reorienting. Vital Signs: 07:58 BP 92 / 50; Pulse 102; Resp 25; Temp 96(TE); Pulse Ox 82% on R/A; Pain 0/10; hb 08:04 Weight 54.43 kg; hb 08:31 BP 93 / 53; Pulse 95; Resp 18; Pulse Ox 96% on Non-rebreather mask; hb 09:30 BP 88 / 49; Pulse 95; Resp 24; Pulse Ox 97% on Nebulizer Mask; hb 10:24 BP 101 / 86; Pulse 87; Resp 29; Pulse Ox 98% on Non-rebreather mask; hb 11:00 Pulse 91; Resp 21; Pulse Ox 94% on 40% Venturi mask; hb 11:30 BP 108 / 67; Pulse 94; Resp 22; Pulse Ox 83% on 40% Venturi mask; hb 11:43 Pulse Ox 95% on Non-rebreather mask; hb 12:30 BP 118 / 85; Pulse 95; Resp 24; Pulse Ox 99% on 15% Non-rebreather mask; sv 13:45 BP 139 / 87; Pulse 93; Resp 18; Pulse Ox 100% ; sv 14:15 BP 108 / 73; Pulse 99; Resp 21; Pulse Ox 98% on 15% Non-rebreather mask; sv 15:00 BP 109 / 74; Pulse 100; Resp 28; Pulse Ox 98% on 100% Non-rebreather mask; hb 15:30 BP 125 / 84; Pulse 94; Resp 30; Pulse Ox 96% on Non-rebreather mask; hb ED Course: 07:57 Patient arrived in ED. rn 07:57 Nicolas Tobar MD is Attending Physician. rn 08:00 First set of blood cultures drawn by me. sv 08:01 Triage completed. hb 08:02 Arm band placed on. hb 08:02 Patient has correct armband on for positive identification. Placed in gown. Bed in low hb position. Call light in reach. Side rails up X2. 08:02 Maintain EMS IV. Dressing intact. Good blood return noted. Site clean \T\ dry. Gauge \T\ hb site: 22g RFA. 08:10 Second set of blood cultures drawn by me. Inserted saline lock: 20 gauge in right sv antecubital area, using aseptic technique. Blood collected. Flushed right antecubital with 5 ml normal saline. 08:25 Voss cath inserted, using sterile technique, 16 Fr., by me, balloon inflated, to ss gravity drainage. 08:30 ABG Sent. hb 08:53 Maya Lowe, RN is Primary Nurse. hb 09:13 CT Chest For PE Angio In Process Unspecified. EDMS 09:13 CT Abd/Pelvis - IV Contrast Only In Process Unspecified. EDMS 09:14 CT Head Brain wo Cont In Process Unspecified. EDMS 09:19 Chest Single View XRAY In Process Unspecified. EDMS 10:25 Austen Tobar MD is Hospitalizing Provider. rn 16:49 No provider procedures requiring assistance completed. Patient admitted, IV remains in hb place. Administered Medications: 08:19 Drug: SOLU-Medrol 125 mg Route: IVP; Site: right forearm; sv 09:13 Follow up: Response: No adverse reaction hb 08:19 Drug: Magnesium Sulfate 1 grams Route: IVPB; Infused Over: 1 hrs; Site: right sv antecubital; 09:16 Follow up: Response: No adverse reaction; IV Status: Completed infusion; IV Intake: 50mlhb 08:19 Drug: Xopenex (3) 1.25 mg Route: Inhalation; sv 09:10 Follow up: Response: No adverse reaction hb 08:20 Drug: NS 0.9% (30 ml/kg) 30 ml/kg Route: IV; Rate: bolus; Site: right antecubital; hb 10:56 Follow up: Response: No adverse reaction; IV Status: Completed infusion; IV Intake: hb 1700ml 09:45 Drug: Zosyn 3.375 grams Route: IVPB; Infused Over: 60 mins; Site: right antecubital; hb 10:56 Follow up: Response: No adverse reaction; IV Status: Completed infusion; IV Intake: hb 100ml Intake: 09:16 IV: 50ml; Total: 50ml. hb 10:56 IV: 1700ml; Total: 1750ml. hb 10:56 IV: 100ml; Total: 1850ml. hb Outcome: 10:26 Decision to Hospitalize by Provider. rn 16:49 Admitted to ER Hold. Please see [facility] for further documentation. hb 16:49 critical 16:49 Instructed on the need for admit. 17:46 Patient left the ED. Signatures: Dispatcher [employer] Fatou Cooper RN RN Nicolas Tobar MD MD rn Smirch, Shelby, RN RN Lowe, Maya, RN RN hb Corrections: (The following items were deleted from the chart) 08:05 07:58 Chief complaint: EMS states: Found on toilet, altered, SBP 80s. HR 120, R 82, hb SpO2 66% on RA, NS to 22g RFA. Family on scene reports she may have taken Seroquel and/or Xanax. hb 08:31 08:31 BP 93 / 53; Pulse 95bpm; Resp 18bpm; Pulse Ox 96% 02 100% Non-rebreather mask; hb hb 10:25 10:24 BP 101 / 86; Pulse 87bpm; Resp 29bpm; hb hb 10:33 08:00 Respiratory: Airway is patent Respiratory effort is labored, Respiratory pattern hb is tachypnea Breath sounds are clear bilaterally. hb 10:56 10:33 Reassessment: hb hb 11:44 10:24 BP 101 / 86; Pulse 87bpm; Resp 29bpm; Pulse Ox 98% Nebulizer Mask; hb hb 15:41 12:30 Reassessment: No changes from previously documented assessment. Patient and/or hb family updated on plan of care and expected duration. Pain level reassessed. hb 15:41 11:48 Reassessment: Desaturated to low 80s while on venturi mask, placed back on NRB hb hb
--- NOTE | 2020-09-16 10:27 | EDPHYS ---
Physician Documentation [facility] Name: Tita Elizabeth Age: 55 yrs Sex: Female : 1965 Arrival Date: 09/16/2020 Time: 07:57 Bed 3 Private MD: ED Physician Nicolas Tobar HPI: 09/16 08:02 This 55 yrs old Female presents to ER via EMS with complaints of Altered rn Mental Status. 08:02 The patient presents with decreased responsiveness. Onset: The symptoms/episode rn began/occurred at an unknown time. Possible causes: unknown. Current symptoms: In the emergency department the patient's symptoms have improved. It is unknown whether or not the patient has had similar symptoms in the past. It is unknown whether or not the patient has recently seen a physician. EMS reports called out, found sitting on toilet, tachycardic and diaphoretic, low oxygen, improved slightly with oxygen supplementation, bystanders reported "possibly took pills", but were not sure and no evidence of overdose. EMS states that with oxygen and fluids, patient improved, now answering questions and stating she feels cold. Pt reports taking 2 xanax this morning, and has been feeling ill for 4 days, states seen at another hospital but cannot tell me diagnosis. Reports low back pain. No chest pain, + sob. No vomiting. . Historical: - Allergies: 08:02 Sulfa (Sulfonamide Antibiotics); hb - PMHx: 08:02 Arthritis; Hypertension; lyme disease; hb - PSHx: 08:02 Bladder sling; Appendectomy; Hysterectomy; hb - Immunization history:: Adult Immunizations unknown. - Social history:: Smoking status: unknown. - Family history:: not pertinent. - Hospitalizations: : No recent hospitalization is reported. ROS: 08:02 Constitutional: Negative for fever, and weight loss, Eyes: Negative for injury, pain, rn redness, and discharge, ENT: Negative for injury, pain, and discharge, Neck: Negative for injury, pain, and swelling, Cardiovascular: Negative for chest pain, palpitations, and edema, Respiratory: + sob and cough Abdomen/GI: Negative for abdominal pain, nausea, vomiting Back: + low back pain : Negative for injury, bleeding, discharge, and swelling, MS/Extremity: Negative for injury and deformity, Skin: Negative for injury, rash, and discoloration, Neuro: Negative for headache, numbness, tingling, and seizure. Exam: 08:02 Constitutional: This is a well developed, well nourished patient who is somnolent, rn awakens and answers questions, holding conversation. Head/Face: Normocephalic, atraumatic. Eyes: Pupils equal round and reactive to light, extra-ocular motions intact. Periorbital areas with no swelling, redness, or edema. ENT: very dry MM, no stridor Neck: No Meningismus. Cardiovascular: Tachycardic, regular Respiratory: + moderate tachypnea, shallow breaths, corase bilateral breath sounds Abdomen/GI: soft, non-tender Skin: Warm, dry, no evidence of cellulitis. MS/ Extremity: Pulses equal, no cyanosis. Neuro: Somnolent, awakens to voice, holds conversation, GCS14, moves all 4 extremities, 4/5 strength throughout, no facial droop. Sensation grossly intact. Vital Signs: 07:58 BP 92 / 50; Pulse 102; Resp 25; Temp 96(TE); Pulse Ox 82% on R/A; Pain 0/10; hb 08:04 Weight 54.43 kg; hb 08:31 BP 93 / 53; Pulse 95; Resp 18; Pulse Ox 96% on Non-rebreather mask; hb 09:30 BP 88 / 49; Pulse 95; Resp 24; Pulse Ox 97% on Nebulizer Mask; hb 10:24 BP 101 / 86; Pulse 87; Resp 29; Pulse Ox 98% on Non-rebreather mask; hb 11:00 Pulse 91; Resp 21; Pulse Ox 94% on 40% Venturi mask; hb 11:30 BP 108 / 67; Pulse 94; Resp 22; Pulse Ox 83% on 40% Venturi mask; hb 11:43 Pulse Ox 95% on Non-rebreather mask; hb 12:30 BP 118 / 85; Pulse 95; Resp 24; Pulse Ox 99% on 15% Non-rebreather mask; sv 13:45 BP 139 / 87; Pulse 93; Resp 18; Pulse Ox 100% ; sv 14:15 BP 108 / 73; Pulse 99; Resp 21; Pulse Ox 98% on 15% Non-rebreather mask; sv 15:00 BP 109 / 74; Pulse 100; Resp 28; Pulse Ox 98% on 100% Non-rebreather mask; hb 15:30 BP 125 / 84; Pulse 94; Resp 30; Pulse Ox 96% on Non-rebreather mask; hb MDM: 07:57 Patient medically screened. rn 08:19 ED course: HR improving and BP improving with fluids. . rn 08:35 ED course: ABG 7.315, HCOS 21/pCO2 42.9, will continue fluids and reeval. BP improves. .rn 10:24 Differential Diagnosis: overdose, pneumonia, sepsis, volume depletion. Data reviewed: rn vital signs, nurses notes, lab test result(s), EKG, radiologic studies, CT scan, plain films, and as a result, I will admit patient. Counseling: I had a detailed discussion with the patient and/or guardian regarding: the historical points, exam findings, and any diagnostic results supporting the discharge/admit diagnosis, lab results, radiology results, the need for further work-up and treatment in the hospital. Response to treatment: the patient's symptoms have mildly improved after treatment, and as a result, I will admit patient. Admission orders: after a detailed discussion of the patient's condition and case, the admit orders are written by me. ED course: Pt reports feels better, BP and HR continue to improve, CT chest neg for PE, + large right sided pneumonia. . 09/16 08:00 Order name: ABG; Complete Time: :09/16 08:00 Order name: Urine Culture rn 09/16 08:00 Order name: Basic Metabolic Panel; Complete Time: 08: rn 09/16 08:00 Order name: Blood Culture Adult (2) rn 09/16 08:00 Order name: CBC with Diff; Complete Time: :09/16 08:00 Order name: CPK; Complete Time: 08:59 rn 09/16 08:00 Order name: Lactate; Complete Time: 08:59 rn 09/16 08:00 Order name: LFT's; Complete Time: 08: rn 09/16 08:00 Order name: Lipase; Complete Time: 08: rn 09/16 08:00 Order name: Procalcitonin; Complete Time: 10: rn 09/16 08:00 Order name: Protime (+inr); Complete Time: 08:59 rn 09/16 08:00 Order name: Ptt, Activated; Complete Time: 08:59 rn 09/16 08:00 Order name: Troponin (emerg Dept Use Only); Complete Time: 08:59 rn 09/16 08:00 Order name: Urine Microscopic Only; Complete Time: 09:12 rn 09/16 08:00 Order name: Chest Single View XRAY; Complete Time: 10:17 rn 09/16 08:00 Order name: Urine Drug Screen rn 09/16 08:00 Order name: Acetaminophen; Complete Time: 08:59 rn 09/16 08:14 Order name: CT Chest For PE Angio; Complete Time: 10: rn 09/16 08:14 Order name: CT Abd/Pelvis - IV Contrast Only; Complete Time: 10: rn 09/16 08:14 Order name: CT Head Brain wo Cont; Complete Time: 10: rn 09/16 08:38 Order name: Urine Dipstick--Ancillary (enter results) bd 09/16 08:38 Order name: Urine --Ancillary (enter results) bd 09/16 09:30 Order name: COVID-19/FLU A+B; Complete Time: 10:17 EDWA 09/16 09:35 Order name: Manual Differential; Complete Time: 10:17 EDMS 09/16 11:38 Order name: Lactate Sepsis 2 HR Follow-up EDWA 09/16 08:00 Order name: Accucheck; Complete Time: 08:29 rn 09/16 08:00 Order name: Cardiac monitoring; Complete Time: 08:19 rn 09/16 08:00 Order name: EKG - Nurse/Tech; Complete Time: 08:29 rn 09/16 08:00 Order name: IV Saline Lock - Large Bore; Complete Time: 08: rn 09/16 08:00 Order name: Labs collected and sent; Complete Time: 08: rn 09/16 08:00 Order name: O2 Per Protocol; Complete Time: 08: rn 09/16 08:00 Order name: O2 Sat Monitoring; Complete Time: 08: rn 09/16 08:00 Order name: Urine Dipstick-Ancillary (obtain specimen); Complete Time: 08:29 rn 09/16 11:31 Order name: CONS Physician Consult EDMS Administered Medications: 08:19 Drug: SOLU-Medrol 125 mg Route: IVP; Site: right forearm; sv 09:13 Follow up: Response: No adverse reaction hb 08:19 Drug: Magnesium Sulfate 1 grams Route: IVPB; Infused Over: 1 hrs; Site: right sv antecubital; 09:16 Follow up: Response: No adverse reaction; IV Status: Completed infusion; IV Intake: 50mlhb 08:19 Drug: Xopenex (3) 1.25 mg Route: Inhalation; sv 09:10 Follow up: Response: No adverse reaction hb 08:20 Drug: NS 0.9% (30 ml/kg) 30 ml/kg Route: IV; Rate: bolus; Site: right antecubital; hb 10:56 Follow up: Response: No adverse reaction; IV Status: Completed infusion; IV Intake: hb 1700ml 09:45 Drug: Zosyn 3.375 grams Route: IVPB; Infused Over: 60 mins; Site: right antecubital; hb 10:56 Follow up: Response: No adverse reaction; IV Status: Completed infusion; IV Intake: hb 100ml Disposition: 10:24 Critical Care:. rn Disposition: 09/16/20 10:26 Hospitalization ordered by Austen Tobar for Inpatient Admission. Preliminary diagnosis are Pneumonia, unspecified organism, Hypoxemia, Sepsis, unspecified organism. - Bed requested for [facility] ER HOLD. - Status is Inpatient Admission. ss - Condition is Fair. - Problem is new. - Symptoms have improved. Critical care time excluding procedures: 10:24 Critical care time: Bedside Care: 25 minutes, Consultation: 5 minutes. Total time: 30 rn minutes Signatures: Dispatcher [employer] Fatou Cooper RN RN Nicolas Tobar MD MD rn Smirch, Shelby, RN RN ss Baxter, Heather, RN RN Corrections: (The following items were deleted from the chart) 08:11 08:02 Constitutional: This is a well developed, well nourished patient who is rn somnolent, awakens and answers questions, holding conversation. Head/Face: Normocephalic, atraumatic. Eyes: Pupils equal round and reactive to light, extra-ocular motions intact. Periorbital areas with no swelling, redness, or edema. ENT: very dry MM, no stridor Neck: No Meningismus. Cardiovascular: Tachycardic, regular Respiratory: + moderate tachypnea, shallow breaths Abdomen/GI: soft, non-tender Skin: Warm, dry, no evidence of cellulitis. MS/ Extremity: Pulses equal, no cyanosis. Neuro: Somnolent, awakens to voice, holds conversation, GCS14, moves all 4 extremities, 4/5 strength throughout, no facial droop. Sensation grossly intact. rn 08:20 08:00 Voss ordered. rn sv 08:32 08:02 CORONAVIRUS+MR.LAB.BRZ ordered. EDMS EDMS 08:33 08:02 Influenza Screen (A \\T\\ B)+BA.LAB.BRZ ordered. EDWA EDMS 09:35 09:01 CBC Smear Scan ordered. EDWA EDMS 10:26 10:26 Hospitalization Ordered by Austen Tobar MD for Inpatient Admission. Preliminary rn diagnosis is Pneumonia, unspecified organism; Hypoxemia. Bed requested for Telemetry/MedSurg (Inpatient). Status is Inpatient Admission. Condition is Fair. Problem is new. Symptoms have improved. rn 14:57 10:26 09/16/2020 10:26 Hospitalization Ordered by Austen Tobar MD for Inpatient ss Admission. Preliminary diagnosis is Pneumonia, unspecified organism; Hypoxemia; Sepsis, unspecified organism. Bed requested for Telemetry/MedSurg (Inpatient). Status is Inpatient Admission. Condition is Fair. Problem is new. Symptoms have improved. rn 17:46 14:57 09/16/2020 10:26 Hospitalization Ordered by Austen Tobar MD for Inpatient ss Admission. Preliminary diagnosis is Pneumonia, unspecified organism; Hypoxemia; Sepsis, unspecified organism. Bed requested for [facility] ER HOLD. Status is Inpatient Admission. Condition is Fair. Problem is new. Symptoms have improved. ss
[2020-09-16] MEDS ORDERED: PIPER/TAZO/NS 3.375gm 3.375 GM/100 ML BAG ONE (10:51)
--- NOTE | 2020-09-16 11:29 | P.HP ---
Certification for Inpatient Patient admitted to: Inpatient With expected LOS: >2 Midnights Practitioner: I am a practitioner with admitting privileges, knowledge of patient current condition, hospital course, and medical plan of care. Services: Services provided to patient in accordance with Admission requirements found in Title 42 Section 412.3 of the Code of Federal Regulations Patient History Date of Service: 09/16/20 Reason for admission: Sepsis, Pneumonia History of Present Illness: unable to obtain history from patient, family unreachable. Per ED, pt's family member called 911 due to patient appearing ill. On arrival she was noted to be hypoxic and hypotensive. She responded well to sepsis bolus and placed on nonrebreather. Workup revealed R sided pneumonia. COVID negative. lactic acidosis, elevated bands. - Past Medical/Surgical History Past Medical History: Unable to obtain Past Surgical History: Unable to obtain - Family History Family History: Reviewed- Non-Contributory (unable to obtain) Review of Systems is unable to be obtained Physical Examination - Physical Exam General: Confused, Delirious HEENT: Sclerae nonicteric Respiratory: Other (diminished and with crackles on R lung) Cardiovascular: No edema, Regular rate/rhythm Gastrointestinal: Soft and benign, No tenderness Musculoskeletal: No tenderness Integumentary: No significant lesion Neurological: Other (moving all extremities, sleepy/lethargic, mumbling words in attempt to respond) Urinary: Voss catheter - Studies Laboratory Data (last 24 hrs) 09/16/20 08:10: PT 11.6, INR 0.98, APTT 30.2 09/16/20 08:10: WBC 2.4 L, Hgb 15.5 H, Hct 48.1 H, Plt Count 133 L 09/16/20 08:10: Sodium 147 H, Potassium 3.0 L, BUN 19 H, Creatinine 1.23, Glucose 114 H, Total Bilirubin 0.8, AST 178 H, ALT 235 H, Alkaline Phosphatase 86, Lipase 52 L Assessment and Plan - Advance Directives Does patient have a Living Will: No Does patient have a Durable POA for Healthcare: No Physician Review Additional Text: Severe Sepsis secondary to R sided pneumonia Acute hypoxemic respiratory failure secondary to R sided pneumonia Altered mental status Elevated LFTs -leukopenia, elevated lactate and had low BP in ED, responded well to 30cc/kg sepsis bolus -hypoxemia improved after placed on nonrebreather -continues with some lethargy / AMS - urine tox positive for benzo & THC, adm itted to ED staff that she took 2 Xanax today -admit to ICU for close monitoring at least for next 24 hrs -consult pulm -unable to get history from patient or family, start empiric coverage - cefepime , azithro, vanc -follow cultures obtained in ED -repeat lactate will continue to attempt to contact family and monitor patient closely Time Spent Managing Pts Care (In Minutes): 65
[2020-09-16 11:31] LABS: Urine Blood NEGATIVE (NEG); Urine Glucose NEGATIVE (NEG); Urine Protein TRACE (NEG); Urine Specific Gravity 1.025 (1.005-1.030); Urine pH 5.5 (5.0-7.0)
[2020-09-16] MEDS: IPRATROPIUM BROM 0.5MG/2.5ML NEB SCH ×3 (16:27→22:46)
[2020-09-16] MEDS ORDERED: INSULIN -REGULAR HUMAN 50 UNIT/0.5 ML ML SQ SCH (16:30)
[2020-09-16 16:49] VITALS: BMI 21.9
[2020-09-16] MEDS ORDERED: CEFEPIME 2 GM VIAL IV SCH (17:00)
[2020-09-16] MEDS: Levofloxacin 750mg IV 750 MG/150 ML BAG IV SCH (17:30)
[2020-09-16] MEDS ORDERED: POTASSIUM 25 MEQ EFFERV TAB PO ONE (17:37)
[2020-09-16] MEDS: ENOXAPARIN 40 MG/0.4 ML SQ SCH (17:43)
[2020-09-16] MEDS: NA CHLORIDE 0.9% 1,000 ML IV SCH (17:43)
[2020-09-16] MEDS ORDERED: ENOXAPARIN 40 MG/0.4 ML SQ ONE (17:57)
[2020-09-16] MEDS ORDERED: Levofloxacin 750mg IV 750 MG/150 ML BAG IV ONE (17:57)
[2020-09-16] MEDS ORDERED: VANCOMYCIN 1.5 GM in NA CHLORIDE 0.9% 500 ML IVPB ONE (18:00)
[2020-09-16] MEDS: ALBUTEROL 2.5 MG/3 ML NEB SOL NEB PRN (18:12)
[2020-09-16] MEDS ORDERED: IPRATROPIUM BROM 0.5MG/2.5ML ONE ×2 (18:21→20:44)
[2020-09-16] MEDS ORDERED: ALBUTEROL 2.5 MG/3 ML NEB SOL ONE ×2 (18:21→20:44)
[2020-09-16 18:30] LABS: Arterial Blood Carboxyhemoglob 0.8 % (0-1.5); Blood Gas Oxyhemoglobin 81.4 % (94-97); Blood O2 Saturation 82.6 % (92-98.5)
[2020-09-16] MEDS ORDERED: IBUPROFEN 400 MG TAB ONE (19:46)
[2020-09-16] MEDS: IBUPROFEN 400 MG TAB PO PRN (19:56)
[2020-09-16] MEDS: CEFEPIME/SWI 2gm 2 GM/20 ML SYR IVP SCH (19:57)
[2020-09-16] MEDS: BENZONATATE 100 MG CAP PO PRN (20:01)
[2020-09-16] MEDS ORDERED: BENZONATATE 100 MG CAP PO ONE ×2 (20:14→20:31)
[2020-09-16] MEDS ORDERED: LORazepam 2 MG/ML VIAL IV PRN (20:50)
[2020-09-16] MEDS: NICOTINE 21 MG/PAT TD SCH (21:00)
[2020-09-16] MEDS ORDERED: VANCOMYCIN 1.5 GM in NA CHLORIDE 0.9% 500 ML IVPB SCH (21:00)
--- NOTE | 2020-09-16 21:04 | P.INFCA ---
Sepsis Focused Assessment - Focused Assessment Complete? Sepsis Focused Assessment Completed?: Yes - Sepsis Screen Result Severe Sepsis: Positive Septic Shock: Negative - Evaluation Current stage of sepsis: Severe sepsis - Vital Signs Reviewed: Yes Temperature: 99.0 F Heart rate: 99 Blood Pressure: 100/68 Respiratory Rate: 20 O2 Sat by Pulse Oximetry: 99 - Examination Heart: Tachycardia (sinus, no murmur) Lungs: Crackles (R lung), Diminished air movement Peripheral pulses: 2+ Slightly diminished Peripheral pulse location: Posterior tibial Capillary refill: <2 Seconds Skin examination: Normal turgor
[2020-09-16] MEDS ORDERED: NICOTINE 21 MG/PAT TD ONE (21:13)
[2020-09-16] MEDS ORDERED: LORazepam 2 MG/ML VIAL ONE (21:14)
[2020-09-16] MEDS ORDERED: NA CHLORIDE 0.9% 250 ML IV ONE (21:14)
[2020-09-17] MEDS: NA CHLORIDE 0.9% 1,000 ML IV SCH ×5 (00:27→17:22)
[2020-09-17] MEDS ORDERED: NA CHLORIDE 0.9% 1,000 ML ONE ×5 (00:29→17:26)
[2020-09-17] MEDS ORDERED: NA CHLORIDE 0.9% 500 ML IV ONE ×4 (00:47→09:58)
[2020-09-17] MEDS: IPRATROPIUM BROM 0.5MG/2.5ML NEB SCH ×5 (03:10→19:40)
[2020-09-17] MEDS ORDERED: IPRATROPIUM BROM 0.5MG/2.5ML ONE ×4 (03:21→19:53)
[2020-09-17] MEDS: IBUPROFEN 400 MG TAB PO PRN ×2 (03:46→15:05)
[2020-09-17] MEDS: BENZONATATE 100 MG CAP PO PRN ×2 (03:47→15:05)
[2020-09-17] MEDS ORDERED: BENZONATATE 100 MG CAP PO ONE ×2 (03:59→15:20)
[2020-09-17] MEDS ORDERED: IBUPROFEN 400 MG TAB ONE ×2 (03:59→15:20)
[2020-09-17] MEDS ORDERED: NA CHLORIDE 0.9% 250 ML IV ONE (05:26)
[2020-09-17] MEDS: INSULIN -REGULAR HUMAN 50 UNIT/0.5 ML ML SQ SCH ×6 (05:39→20:29)
[2020-09-17 05:47] LABS: Absolute Lymphocytes (CBC) 0.3 K/uL (0.7-4.9); Basophils % 0.4 % (0-1.3); Lymphocytes % 9.3 % (15.3-44.8); RBC Red Blood Cell Count 3.75 M/uL (3.86-4.86)
[2020-09-17 05:54] LABS: ALT/SGPT 153 U/L (12-78); AST/SGOT 94 U/L (15-37); Alkaline Phosphatase 42 U/L (45-117); BUN Blood Urea Nitrogen 18 mg/dL (7-18); Bicarbonate 22 mmol/L (21-32); Bilirubin Total 0.4 mg/dL (0.2-1.0); Glucose Level 115 mg/dL (74-106); Magnesium 1.9 mg/dL (1.8-2.4); Phosphorus 2.5 mg/dL (2.5-4.9); Potassium 4.4 mmol/L (3.5-5.1); Protein, Total 4.9 g/dL (6.4-8.2); Sodium Level 143 mmol/L (136-145)
--- NOTE | 2020-09-17 07:24 | RAD REPORT ---
EXAM DESCRIPTION: RAD - Chest Single View - 09/17/2020 6:19 am CLINICAL HISTORY: hypoxia, pneumonia COMPARISON: Portable September 16 TECHNIQUE: AP portable chest image was obtained 09/17/2020 6:19 am . FINDINGS: Lung volumes are reduced compared to the prior study. Prominent right-sided pneumonia find ings are stable to slightly improved. Left lung field findings are not significantly different. Heart and vasculature are normal. No measurable pleural effusion and no pneumothorax. No acute aorti c findings suspected. IMPRESSION: Stable to slightly improved right-sided pneumonia. Left lung field is not significantly different.
[2020-09-17] MEDS ORDERED: ENOXAPARIN 40 MG/0.4 ML SQ ONE (08:40)
[2020-09-17] MEDS ORDERED: CEFEPIME 2 GM VIAL ONE ×2 (08:41→20:41)
[2020-09-17] MEDS: ENOXAPARIN 40 MG/0.4 ML SQ SCH (08:41)
[2020-09-17] MEDS: ALBUTEROL 2.5 MG/3 ML NEB SOL NEB PRN ×3 (08:45→19:40)
[2020-09-17] MEDS ORDERED: ALBUTEROL 2.5 MG/3 ML NEB SOL ONE ×3 (08:54→19:54)
[2020-09-17] MEDS: CEFEPIME/SWI 2gm 2 GM/20 ML SYR IVP SCH ×2 (09:34→20:29)
[2020-09-17] MEDS: NICOTINE 21 MG/PAT TD SCH (09:35)
[2020-09-17] MEDS ORDERED: NICOTINE 21 MG/PAT TD ONE (09:48)
[2020-09-17 10:14] LABS: Blood Morphology Comment NOT SEEN (NOT SEEN); Platelet Estimate DECR
[2020-09-17] MEDS ORDERED: NA CHLORIDE 0.9% 500 ML ONE (10:27)
--- NOTE | 2020-09-17 13:23 | P.CNS ---
Date of Consult: 09/17/20 Reason for Consult: Pneumonia septic shock Chief Complaint: Sepsis, Pneumonia History of Present Illness: Patient is 55 years of age became sick about 4 days ago was started having some shortness of breath came in with an extensive pneumonia involving her right lung no prior medical history patient is an active smoker Allergies Sulfa (Sulfonamide Antibiotics) Allergy (Verified 09/16/20 16:27) Itching/Hives/Rash Home Medications: Amoxicillin [Amoxil Cap*] 500 mg PO TID 09/16/20 Citalopram [Celexa] 40 mg PO DAILY 09/16/20 Eszopiclone [Lunesta] 3 mg PO BEDTIME PRN 09/16/20 Ibuprofen 800 mg PO Q8H PRN 09/16/20 Metoprolol Tartrate [Lopressor] 25 mg PO BID 09/16/20 Oxybutynin Chloride [Oxybutynin Chloride ER] 10 mg PO DAILY 09/16/20 metroNIDAZOLE [Flagyl] 500 mg PO BID 09/16/20 - Social History Smoking Status: Unknown if ever smoked Review of Systems 10-point ROS is otherwise unremarkable General: Weakness Respiratory: Cough, Shortness of Breath Physical Examination Temp Pulse Resp BP Pulse Ox 99.1 F 115 H 27 H 125/63 95 09/17/20 12:33 09/17/20 13:00 09/17/20 13:00 09/17/20 13:00 09/17/20 13:00 General: Alert, Moderate distress Respiratory: Crackles/rales (Extensive crackles on the right side), Expiratory wheezes Cardiovascular: No edema, Regular rate/rhythm, Normal S1 S2 Gastrointestinal: Soft and benign - Problems (1) Septic shock Current Visit: Yes Status: Acute Plan: Patient is 55 years of age admitted with septic shock secondary to pneumonia blood cultures positive for gram-negative rods hypotensive continue with IV fluids the given her 1 L bolus lab work consistent with a severe sepsis I suspec t patient also has COPD continue with bronchodilator
[2020-09-17] MEDS ORDERED: ADENOSINE 6 MG/ 2ML VIAL IV ONE ×3 (15:00→17:20)
[2020-09-17] MEDS ORDERED: METOPROLOL TARTRATE 5 MG/5 ML INJ IV ONE (16:42)
[2020-09-17] MEDS ORDERED: METOPROLOL TARTRATE 5 MG/5 ML INJ IV STA (17:20)
[2020-09-17] MEDS: Levofloxacin 750mg IV 750 MG/150 ML BAG IV SCH (17:21)
[2020-09-17] MEDS ORDERED: Levofloxacin 750mg IV 750 MG/150 ML BAG IV ONE (17:26)
[2020-09-17] MEDS: ONDANSETRON 4 MG/2 ML VIAL IV PRN (18:04)
[2020-09-17] MEDS ORDERED: ONDANSETRON 4 MG/2 ML VIAL ONE (18:19)
[2020-09-17] MEDS ORDERED: chlordiazePOXIDE HCl 5 MG CAP PO PRN (18:32)
--- NOTE | 2020-09-17 20:10 | P.PN ---
Subjective Date of Service: 09/17/20 Chief Complaint: Sepsis, Pneumonia Subjective: Improving (feeling better this morning. AAOx3, breathing more comfortably. reports mild headache, +cough. chronic back pain) Review of Systems 10-point ROS is otherwise unremarkable Physical Examination - Vital Signs Temperature: 98.2 F Blood Pressure: 107/61 Pulse: 104 Respirations: 28 Pulse Ox (%): 93 - Studies Microbiology Data (last 24 hrs): 09/16/20 08:10 Blood - Blood Blood Culture Gram Stain - Final 09/16/20 08:10 Blood - Blood Blood Culture Gram Stain - Final 09/16/20 08:10 Blood - Blood Gram Stain - Final Assessment & Plan Physician Review Additional Text: Physical Exam: Gen: NAD HEENT: normal conjunctiva, PERRL CV: RRR, no murmur Pulm: crackles throughout R lung Abd: soft, NTND Ext: no edema, good 2+ DP/PT pulses Severe Sepsis secondary to R sided pneumonia Acute hypoxemic respiratory failure secondary to R sided pneumonia Metabolic encephalopathy secondary to sepsis /pneumonia Elevated LFTs -BP low/normal, Pulm gave more IVF boluses this morning -on NC this morning, breathing more comfortably -more alert and oriented. denies any pulmonary or cardiac history -continue to monitor in ICU today -GNR bacteremia, continue cefepime, azithro, vanc -follow cultures obtained in ED -confirm and restart home meds as appropriate. VTE: lovenox Code: full Dispo: hospitalization > 2 days, suspect eventual dc home Time Spent Managing Pts Care (In Minutes): 35
[2020-09-17] MEDS: METOPROLOL TAR 25 MG TAB PO SCH (20:20)
[2020-09-17] MEDS ORDERED: METOPROLOL TAR 25 MG TAB ONE (20:34)
[2020-09-17] MEDS ORDERED: CEFEPIME/SWI 1gm 0 ML ONE (20:35)
[2020-09-18] MEDS: NA CHLORIDE 0.9% 1,000 ML IV SCH ×2 (00:25→08:30)
[2020-09-18] MEDS ORDERED: NA CHLORIDE 0.9% 1,000 ML ONE ×2 (00:40→08:45)
[2020-09-18] MEDS: IPRATROPIUM BROM 0.5MG/2.5ML NEB SCH ×3 (01:45→20:30)
[2020-09-18] MEDS ORDERED: IPRATROPIUM BROM 0.5MG/2.5ML ONE ×3 (01:58→14:08)
[2020-09-18] MEDS ORDERED: BENZONATATE 100 MG CAP PO ONE (02:09)
[2020-09-18] MEDS ORDERED: IBUPROFEN 400 MG TAB ONE ×2 (02:10→20:05)
[2020-09-18] MEDS: IBUPROFEN 400 MG TAB PO PRN ×2 (02:28→20:02)
[2020-09-18] MEDS: BENZONATATE 100 MG CAP PO PRN (02:28)
[2020-09-18 04:16] LABS: Absolute Lymphocytes (CBC) 0.5 K/uL (0.7-4.9); Basophils % 0.2 % (0-1.3); Lymphocytes % 10.8 % (15.3-44.8); MPV 9.7 fL (7.6-11.3); RBC Red Blood Cell Count 3.54 M/uL (3.86-4.86)
[2020-09-18 04:29] LABS: ALT/SGPT 119 U/L (12-78); AST/SGOT 92 U/L (15-37); Albumin 1.7 g/dL (3.4-5.0); Alkaline Phosphatase 75 U/L (45-117); BUN Blood Urea Nitrogen 14 mg/dL (7-18); Bicarbonate 21 mmol/L (21-32); Bilirubin Total 0.4 mg/dL (0.2-1.0); Glucose Level 134 mg/dL (74-106); Magnesium 1.9 mg/dL (1.8-2.4); Phosphorus 1.5 mg/dL (2.5-4.9); Potassium 4.2 mmol/L (3.5-5.1); Protein, Total 4.6 g/dL (6.4-8.2); Sodium Level 144 mmol/L (136-145)
[2020-09-18] MEDS: LORazepam 2 MG/ML VIAL IV PRN ×2 (05:33→17:03)
[2020-09-18] MEDS ORDERED: LORazepam 2 MG/ML VIAL ONE ×3 (05:46→17:17)
[2020-09-18] MEDS ORDERED: VANCOMYCIN/NS 1 gm 1 GM/250 ML BAG IV SCH (06:00)
[2020-09-18] MEDS ORDERED: POTASS/SODIUM PHOSPHATE 1 PKT POWD.PACK PO SCH (06:00)
[2020-09-18] MEDS ORDERED: IPRATROPIUM BROM 0.5MG/2.5ML NEB PRN (06:28)
[2020-09-18] MEDS: INSULIN -REGULAR HUMAN 50 UNIT/0.5 ML ML SQ SCH ×4 (07:30→20:18)
[2020-09-18] MEDS: ALBUTEROL 2.5 MG/3 ML NEB SOL NEB PRN ×2 (08:00→13:55)
[2020-09-18] MEDS ORDERED: ALBUTEROL 2.5 MG/3 ML NEB SOL ONE ×2 (08:14→14:08)
[2020-09-18] MEDS: LORazepam 2 MG/ML VIAL IV SCH ×2 (08:22→14:00)
[2020-09-18] MEDS: CEFEPIME/SWI 2gm 2 GM/20 ML SYR IVP SCH (08:22)
[2020-09-18] MEDS: NICOTINE 21 MG/PAT TD SCH (08:23)
[2020-09-18] MEDS: POTASS/SODIUM PHOSPHATE 1 PKT POWD.PACK PO SCH ×4 (08:23→10:38)
[2020-09-18] MEDS: CITALOPRAM 10 MG TABLET PO SCH (08:23)
[2020-09-18] MEDS ORDERED: NICOTINE 21 MG/PAT TD ONE (08:30)
[2020-09-18] MEDS ORDERED: METOPROLOL TAR 25 MG TAB ONE ×2 (08:30→20:05)
[2020-09-18] MEDS: METOPROLOL TAR 25 MG TAB PO SCH ×2 (08:55→20:03)
[2020-09-18] MEDS: ENOXAPARIN 40 MG/0.4 ML SQ SCH (08:56)
[2020-09-18] MEDS ORDERED: ENOXAPARIN 40 MG/0.4 ML SQ ONE (09:08)
--- NOTE | 2020-09-18 09:37 | RAD REPORT ---
EXAM DESCRIPTION: RAD - Chest Single View - 09/18/2020 7:11 am CLINICAL HISTORY: pneumonia worsening hypoxia Chest pain. COMPARISON: Chest Single View dated 09/17/2020; Chest Single View dated 09/16/2020; Chest Single View dated 08/26/2020; Chest For Pe Angio dated 09/16/2020 FINDINGS: Portable technique limits examination quality. Extensive bilateral pulmonary opacities are noted, greater on the right, appearing mildly progressive since the comparative study. The heart is upper limit normal in size. No displaced fractures. IMPRESSION: Mild worsening in bilateral pulmonary opacities, greater on the right, since comparative radiograph.
[2020-09-18] MEDS ORDERED: Meropenem 1,000 MG in NA CHLORIDE 0.9% 100 ML IV SCH (10:15)
[2020-09-18] MEDS ORDERED: Meropenem 1 GM/100 ML BAG ONE (10:47)
--- NOTE | 2020-09-18 11:53 | ECHO ---
HEIGHT: 5 ft 2 in WEIGHT: 119 lb 15.962 oz DATE OF STUDY: 09/18/[address]: Austen Tobar MD 2-DIMENSIONAL: YES M.MODE: YES DOPPLER: YES COLOR FLOW: YES TDS: NO PORTABLE: NO DEFINITY: NO BUBBLE STUDY: NO DIAGNOSIS: SUPRA VENTRICULAR TACHYCARDIA CARDIAC HISTORY: CATHERIZATION: NO SURGERY: NO PROSTHETIC VALVE: NO PACEMAKER: NO MEASUREMENTS (cm) DIASTOLIC (NORMALS) SYSTOLIC (NORMALS) IVSd 1.1 (0.6-1.2) LA Diam 3.1 (1.9-4.0) LVEF 55-60% LVIDd 4.5 (3.5-5.7) LVIDs 2.9 (2.0-3.5) %FS 35% LVPWd 1.1 (0.6-1.2) Ao Diam 2.5 (2.0-3.7) 2 DIMENSIONAL ASSESSMENT: RIGHT ATRIUM: NORMAL LEFT ATRIUM: NORMAL RIGHT VENTRICLE: NORMAL LEFT VENTRICLE: NORMAL TRICUSPID VALVE: MILD TRICUSPID REGURGITATION MITRAL VALVE: NORMAL PULMONIC VALVE: NORMAL AORTIC VALVE: NORMAL PERICARDIAL EFFUSION: NONE AORTIC ROOT: NORMAL LEFT VENTRICULAR WALL MOTION: NORMAL. DOPPLER/COLOR FLOW: SEE BELOW. COMMENTS: NORMAL LEFT VENTRICULAR EJECTION FRACTION 55-60%. NORMAL WALL MOTION. RIGHT VENTRICULAR SYSTOLIC PRESSURE OF 35mmHg. MILD TRICUSPID REGURGITATION. TECHNOLOGIST: MATT BELCHER
[2020-09-18] MEDS ORDERED: NA CHLORIDE 0.9% 1,000 ML IV SCH (12:14)
--- NOTE | 2020-09-18 12:41 | P.PN ---
Subjective Date of Service: 09/18/20 Chief Complaint: Sepsis, Pneumonia Subjective: Improving (Patient is improving still little tachypneic) Review of Systems is unable to be obtained Physical Examination - Vital Signs Temperature: 97.3 F Blood Pressure: 117/64 Pulse: 89 Respirations: 38 Pulse Ox (%): 91 - Physical Exam General: Unresponsive Respiratory: Crackles/rales (Crackles on the right side) Cardiovascular: No edema, Regular rate/rhythm - Studies Microbiology Data (last 24 hrs): 09/16/20 08:30 Catheterized Urine [place] Count - Final No growth. 09/16/20 08:30 Catheterized Urine - Final No growth. 09/16/20 08:10 Blood - Blood Blood Culture Gram Stain - Final 09/16/20 08:10 Blood - Blood Aerobic Blood Culture - Final Escherichia Coli 09/16/20 08:10 Blood - Blood Blood Culture Gram Stain - Final 09/16/20 08:10 Blood - Blood Anaerobic Blood Culture - Final Escherichia Coli 09/16/20 08:10 Blood - Blood Gram Stain - Final Assessment & Plan - Problems (Diagnosis) (1) Pneumonia Current Visit: Yes Status: Acute Plan: Patient is 55 years of age admitted with septic shock severe pneumonia the pressure is better cultures show E coli change to high-dose levofloxacin Dc vancomycin titrate sat to about 90% simpson has developed SVT o avoid albuterol history of excessive alcohol intake patient is on DVT prophylaxis use Atrovent nebulizers Q 6 Qualifiers: Pneumonia type: due to unspecified organism Laterality: right
[2020-09-18] MEDS: Levofloxacin 750mg IV 750 MG/150 ML BAG IV SCH (16:18)
[2020-09-18] MEDS ORDERED: Levofloxacin 750mg IV 750 MG/150 ML BAG IV ONE (16:24)
[2020-09-18] MEDS ORDERED: Meropenem 1000 MG/VIAL IV SCH (17:00)
--- NOTE | 2020-09-18 19:39 | P.PN ---
Subjective Date of Service: 09/18/20 Chief Complaint: Sepsis, Pneumonia Subjective: Other (pt with rough night, off/on bipap. SVT this morning for ~4min- self resolved before adenosine was given. Seems to be related to when receving nebulizers/ pt restless at times, diaphoretic) Physical Examination - Vital Signs Temperature: 99.5 F Blood Pressure: 125/66 Pulse: 98 Respirations: 20 Pulse Ox (%): 100 - Studies Microbiology Data (last 24 hrs): 09/16/20 08:30 Catheterized Urine [place] Count - Final No growth. 09/16/20 08:30 Catheterized Urine - Final No growth. 09/16/20 08:10 Blood - Blood Blood Culture Gram Stain - Final 09/16/20 08:10 Blood - Blood Aerobic Blood Culture - Final Escherichia Coli 09/16/20 08:10 Blood - Blood Blood Culture Gram Stain - Final 09/16/20 08:10 Blood - Blood Anaerobic Blood Culture - Final Escherichia Coli 09/16/20 08:10 Blood - Blood Gram Stain - Final Assessment & Plan Physician Review Additional Text: Physical Exam: Gen: appears tired, oriented x 3 HEENT: PERRL CV: sinus tachycardia 90-100, no murmur Pulm: crackles throughout R lung, and at L lung base Abd: soft, NTND Ext: no edema, good 2+ DP/PT pulses Neuro: +mild asterixis Severe Sepsis secondary to R sided pneumonia Acute hypoxemic respiratory failure secondary to R sided pneumonia Metabolic encephalopathy secondary to sepsis /pneumonia Elevated LFTs -BP improved, will dc IVF -off/on BIPAP, monitor closely, dc nebulizers -cultures with e.coli in blood - discussed with pulm, recommended de-escalation to levaquin -continue to monitor in ICU -family and patient reported anywhere from 2-5 beers/day, no history of alcohol withdrawal -boyfriend is not sure but thinks last drink was 3 days ago -patient with some signs of possible alcohol withdrawal, given scheduled Ativan, will discontinue, continue p.r.n. VTE: lovenox Code: full Dispo: hospitalization > 2 days Time Spent Managing Pts Care (In Minutes): 45
[2020-09-18] MEDS: GUAIFENESIN/CODEINE 5ML UCUP PO PRN (20:28)
[2020-09-18] MEDS ORDERED: GUAIFENESIN/CODEINE 5ML UCUP ONE (20:38)
[2020-09-19] MEDS: IPRATROPIUM BROM 0.5MG/2.5ML NEB SCH ×4 (02:00→21:00)
[2020-09-19 04:40] LABS: Absolute Lymphocytes (CBC) 0.7 K/uL (0.7-4.9); Basophils % 0.2 % (0-1.3); Hematocrit 34.2 % (36.0-45.0); Lymphocytes % 12.2 % (15.3-44.8); MPV 9.6 fL (7.6-11.3); RBC Red Blood Cell Count 3.61 M/uL (3.86-4.86)
[2020-09-19 04:49] LABS: ALT/SGPT 108 U/L (12-78); AST/SGOT 104 U/L (15-37); Albumin 1.6 g/dL (3.4-5.0); Alkaline Phosphatase 106 U/L (45-117); BUN Blood Urea Nitrogen 12 mg/dL (7-18); Bicarbonate 23 mmol/L (21-32); Bilirubin Total 0.4 mg/dL (0.2-1.0); Glucose Level 88 mg/dL (74-106); Sodium Level 146 mmol/L (136-145)
[2020-09-19 06:51] LABS: Arterial Blood Carboxyhemoglob 1.1 % (0-1.5); Blood Gas Oxyhemoglobin 94.7 % (94-97); Blood O2 Saturation 96.6 % (92-98.5)
[2020-09-19] MEDS: INSULIN -REGULAR HUMAN 50 UNIT/0.5 ML ML SQ SCH ×4 (07:30→20:19)
[2020-09-19] MEDS ORDERED: IPRATROPIUM BROM 0.5MG/2.5ML ONE ×3 (08:26→20:54)
[2020-09-19] MEDS ORDERED: ENOXAPARIN 40 MG/0.4 ML SQ ONE (08:40)
[2020-09-19] MEDS ORDERED: METOPROLOL TAR 25 MG TAB ONE ×2 (08:40→19:29)
[2020-09-19] MEDS ORDERED: NICOTINE 21 MG/PAT TD ONE (08:40)
[2020-09-19] MEDS ORDERED: THIAMINE 200 MG/2 ML INJ ONE ×2 (08:40→20:05)
[2020-09-19] MEDS: NICOTINE 21 MG/PAT TD SCH (08:55)
[2020-09-19] MEDS: ENOXAPARIN 40 MG/0.4 ML SQ SCH (08:55)
[2020-09-19] MEDS: THIAMINE 200 MG/2 ML INJ IVP SCH ×3 (08:55→20:01)
[2020-09-19] MEDS: METOPROLOL TAR 25 MG TAB PO SCH ×2 (08:56→20:06)
[2020-09-19] MEDS: CITALOPRAM 10 MG TABLET PO SCH (08:57)
[2020-09-19] MEDS ORDERED: IBUPROFEN 400 MG TAB ONE (10:21)
[2020-09-19] MEDS: IBUPROFEN 400 MG TAB PO PRN (10:30)
--- NOTE | 2020-09-19 10:32 | RAD REPORT ---
EXAM DESCRIPTION: ROBBINJohn Single View09/19/2020 5:11 am CLINICAL HISTORY: Hypoxia COMPARISON: September 18, 2020 FINDINGS: Mild improvement in right and no significant change in left pulmonary opacities likely pn eum[place] Heart is normal size
--- NOTE | 2020-09-19 14:27 | CON ---
Date of Consultation: 09/18/2020 Reason For Consultation: SVT. History Of Present Illness: This is a 55-year-old female was admitted with sepsis due to pneumonia. She apparently had an SVT episode, heart rate up to 200 and responded very well to adenosine, been b ack to sinus rhythm. Did that one more time and then converted back to sinus rhythm. On arrival to the hospital, she was hypoxic and hypotensive, but a COVID status was negative. Past Medical History: Unable to obtain. The patient is lethargic. Medications: Unknown. Allergies: SULFA. Social History: Unknown. Family History: Unknown. Unable to obtain due the lethargy. Review of Systems: All systems were reviewed and they were negative except what mentioned in the HPI. Physical Examination: Vital Signs: Temperature is 98.4, pulse is 86, breathing at 18, blood pressure is 111/59, saturating 98%. General: This is a middle-aged female in lethargic, however, in no apparent distress. Head and Neck: No JVD. No cervical lymphadenopathy. Neck is supple. Thyroid is not enlarged. Lungs: Rhonchi bilaterally. No accessory muscle use. Normal structure. Heart: Regular rate and rhythm. No extra sounds. Abdomen: Soft, nontender. Bowel sounds positive. No organomegaly. No masses or hernia. No rigidi ty or rebound. Extremities: No clubbing, cyanosis. Intact pulses. Skin: No rashes. Neurologic: Alert, awake. No acute focal deficits appreciated. Investigations: Creatinine 0.59 and procalcitonin is 23.7. Lactic acid was 4.2 on admission. Assessment/plan: Supraventricular tachycardia that responded to adenosine. Recommend metoprolol 25 mg twice a day and obtain an echo once the heart rate is controlled. The patient is in sepsis condit ion and lethargic at this point. We will further evaluate once the sepsis condition is completely re solved and recommend to obtain an echocardiogram during this hospital stay. SR/MODL Voice ID: [id number] Report ID: [id number]
[2020-09-19] MEDS: Levofloxacin 750mg IV 750 MG/150 ML BAG IV SCH (16:37)
[2020-09-19] MEDS ORDERED: Levofloxacin 750mg IV 750 MG/150 ML BAG IV ONE (16:52)
[2020-09-19 17:02] LABS: Arterial Blood Carboxyhemoglob 1.2 % (0-1.5); Blood Gas Oxyhemoglobin 86.7 % (94-97); Blood O2 Saturation 88.5 % (92-98.5)
--- NOTE | 2020-09-19 19:17 | P.PN ---
Subjective Date of Service: 09/19/20 Chief Complaint: Sepsis, Pneumonia Subjective: Improving (continues with some lethargy, arousable, AAOx3. no acute events overnight. remained on BIPAP) Review of Systems 10-point ROS is otherwise unremarkable Physical Examination - Vital Signs Temperature: 97.9 F Blood Pressure: 138/78 Pulse: 103 Respirations: 18 Pulse Ox (%): 93 Assessment & Plan Physician Review Additional Text: Physical Exam: Gen: lethargic but arousable, oriented x 3 HEENT: PERRL CV: sinus tachycardia 90-100, no murmur Pulm: crackles bilaterally, worse on R, diminished on right, shallow inspirations on 4 L Abd: soft, NTND Ext: no edema, good 2+ DP/PT pulses Severe Sepsis secondary to R sided pneumonia Acute hypoxemic respiratory failure secondary to R sided pneumonia Metabolic encephalopathy secondary to sepsis /pneumonia Elevated LFTs -Severe sepsis, resolved. BP improved -continue 4L NC, bipap if needed -cultures with e.coli bacteremia, de-escalated to levaquin after discussion with pulm -continue to monitor in ICU -patient reported 6 beers/day, boyfriend reports 3-5 beers/day, son reported at least 2 months ago she was drinking to pass out daily -continue to monitor for alcohol withdrawal, given lethargy, dc'd scheduled ativan yesterday, will increase thiamine to BID. librium PRN -boyfriend is not sure but thinks last drink was 2-3 days prior to admission -repeat blood cultures (09/18): negative so far VTE: lovenox Code: full Dispo: hospitalization > 2 days Time Spent Managing Pts Care (In Minutes): 35
[2020-09-19] MEDS: BENZONATATE 100 MG CAP PO PRN (23:08)
[2020-09-19] MEDS ORDERED: BENZONATATE 100 MG CAP PO ONE (23:09)
[2020-09-20] MEDS: GUAIFENESIN/CODEINE 5ML UCUP PO PRN ×2 (01:53→23:29)
[2020-09-20] MEDS ORDERED: GUAIFENESIN/CODEINE 5ML UCUP ONE ×2 (02:08→19:49)
[2020-09-20] MEDS: IPRATROPIUM BROM 0.5MG/2.5ML NEB SCH ×4 (02:35→20:40)
[2020-09-20] MEDS ORDERED: IPRATROPIUM BROM 0.5MG/2.5ML ONE ×4 (02:49→20:51)
[2020-09-20 05:35] LABS: Absolute Lymphocytes (CBC) 0.7 K/uL (0.7-4.9); Basophils % 0.3 % (0-1.3); Hematocrit 35.6 % (36.0-45.0); Lymphocytes % 11.4 % (15.3-44.8); MPV 10.4 fL (7.6-11.3)
[2020-09-20 05:48] LABS: ALT/SGPT 113 U/L (12-78); AST/SGOT 168 U/L (15-37); Albumin 1.7 g/dL (3.4-5.0); Alkaline Phosphatase 134 U/L (45-117); BUN Blood Urea Nitrogen 11 mg/dL (7-18); Bicarbonate 26 mmol/L (21-32); Bilirubin Total 0.6 mg/dL (0.2-1.0); Glucose Level 86 mg/dL (74-106); Magnesium 1.9 mg/dL (1.8-2.4); Phosphorus 3.3 mg/dL (2.5-4.9); Potassium 3.2 mmol/L (3.5-5.1); Protein, Total 5.5 g/dL (6.4-8.2); Sodium Level 143 mmol/L (136-145)
[2020-09-20] MEDS ORDERED: POTASSIUM 25 MEQ EFFERV TAB PO ONE (06:27)
[2020-09-20] MEDS ORDERED: POTASSIUM 25 MEQ EFFERV TAB ONE (06:47)
[2020-09-20] MEDS ORDERED: IBUPROFEN 400 MG TAB ONE (07:20)
[2020-09-20 07:30] LABS: Blood Morphology Comment NOT SEEN (NOT SEEN); Platelet Estimate DECR
[2020-09-20] MEDS: INSULIN -REGULAR HUMAN 50 UNIT/0.5 ML ML SQ SCH ×4 (07:30→21:00)
--- NOTE | 2020-09-20 07:48 | RAD REPORT ---
EXAM DESCRIPTION: RAD - Chest Single View - 09/20/2020 7:11 am CLINICAL HISTORY: hypoxia, pneumonia COMPARISON: September 19, September 18 TECHNIQUE: AP portable chest image was obtained 09/20/2020 7:11 am . FINDINGS: Slightly improved aeration noted in the lower right lung field. Right upper lobe volume lo ss accentuates the lung parenchymal opacification. Left lung field is not substantially different. No progressive lung parenchymal process seen. Heart and vasculature are normal. No measurable pleural effusion and no pneumothorax. No acute bony abnormality seen. No acute aortic findings suspected. IMPRESSION: Lung parenchymal opacification is not substantially different from September 19. There may be some minimal improvement in the right lower lung field.
[2020-09-20] MEDS: METOPROLOL TAR 25 MG TAB PO SCH ×2 (08:22→20:11)
[2020-09-20] MEDS: THIAMINE 200 MG/2 ML INJ IVP SCH ×2 (08:23→20:32)
[2020-09-20] MEDS: ENOXAPARIN 40 MG/0.4 ML SQ SCH (08:23)
[2020-09-20] MEDS: FOLIC ACID 1 MG TABLET PO SCH (08:23)
[2020-09-20] MEDS: CITALOPRAM 10 MG TABLET PO SCH (08:23)
[2020-09-20] MEDS: NICOTINE 21 MG/PAT TD SCH (08:23)
[2020-09-20] MEDS: IBUPROFEN 400 MG TAB PO PRN (08:24)
[2020-09-20] MEDS ORDERED: NICOTINE 21 MG/PAT TD ONE (08:36)
[2020-09-20] MEDS ORDERED: FOLIC ACID 1 MG TABLET ONE (08:37)
[2020-09-20] MEDS ORDERED: ENOXAPARIN 40 MG/0.4 ML SQ ONE (08:37)
[2020-09-20] MEDS ORDERED: METOPROLOL TAR 25 MG TAB ONE ×2 (08:37→19:38)
[2020-09-20] MEDS ORDERED: THIAMINE 200 MG/2 ML INJ ONE ×2 (08:37→19:44)
[2020-09-20] MEDS: BENZONATATE 100 MG CAP PO PRN ×2 (08:49→20:18)
[2020-09-20] MEDS ORDERED: BENZONATATE 100 MG CAP PO ONE ×2 (09:04→20:33)
[2020-09-20] MEDS ORDERED: FUROSEMIDE 20 MG/ 2ML VIAL IV ONE (10:25)
--- NOTE | 2020-09-20 10:30 | P.PN ---
Subjective Date of Service: 09/20/20 Chief Complaint: Sepsis, Pneumonia Subjective: Improving (Patient is set at a improving is still not very responsive pressure is now stable on BiPAP) Review of Systems is unable to be obtained Physical Examination - Vital Signs Temperature: 97.7 F Blood Pressure: 161/84 Pulse: 104 Respirations: 24 Pulse Ox (%): 92 - Physical Exam General: Unresponsive Respiratory: Crackles/rales, Expiratory wheezes Cardiovascular: No edema, Regular rate/rhythm Assessment & Plan - Problems (Diagnosis) (1) Pneumonia Current Visit: Yes Status: Acute Plan: Patient was start on BiPAP still has some respiratory distress blood cultures show E coli she is significantly better as far as labs are concerned white count is normal pro calcitonin is declined significantly chest x-ray also shows an improvement blood pressure mildly elevated I agree with IV Lasix abnormal liver function tests patient has a fatty liver history of alcohol abuse both her and her boyfriend drink every night Qualifiers: Pneumonia type: due to unspecified organism Laterality: right
[2020-09-20] MEDS ORDERED: FUROSEMIDE 20 MG/ 2ML VIAL ONE (11:15)
--- NOTE | 2020-09-20 11:23 | RAD REPORT ---
EXAM DESCRIPTION: RAD - Abdomen 1 View ([facility]) - 09/20/2020 10:17 am CLINICAL HISTORY: Nausea/Vomiting COMPARISON: Abdomen Pelvis W Contrast dated 09/16/2020 FINDINGS: Bowel gas pattern is non-specific. No obstruction, free air or pneumatosis. No abnormal s tool volume in the colon. No suspicious calcifications are present. Patient has advanced lumbar degenerative change and scoliosis. Left lateral subluxation of L2 is pres ent with body height loss along the right lateral margin. The L2-3 disc level is significantly narrow ed. There is disc space narrowing left lateral margin of L3-4 and L4-5. Vertebroplasty changes are pr esent in the L2 body. IMPRESSION: No obstruction, free air or emergent finding identifiable.
[2020-09-20] MEDS: Levofloxacin 750mg IV 750 MG/150 ML BAG IV SCH (14:47)
[2020-09-20] MEDS: KCL 20 MEQ/100 mL IVPB 20 MEQ/100 ML BAG IV SCH ×2 (14:47→17:17)
[2020-09-20] MEDS ORDERED: NA CHLORIDE 0.9% 250 ML IV ONE (14:48)
[2020-09-20] MEDS ORDERED: Levofloxacin 750mg IV 750 MG/150 ML BAG IV ONE (15:01)
[2020-09-20 16:28] LABS: Arterial Blood Carboxyhemoglob 1.8 % (0-1.5); Blood Gas Oxyhemoglobin 88.3 % (94-97); Blood O2 Saturation 90.8 % (92-98.5)
[2020-09-20] MEDS ORDERED: THIAMINE HCL 100 MG TABLET ONE (19:38)
[2020-09-20] MEDS ORDERED: NA CHLORIDE 0.9% 100 ML ONE (19:40)
--- NOTE | 2020-09-20 20:02 | P.PN ---
Subjective Date of Service: 09/20/20 Chief Complaint: Sepsis, Pneumonia Subjective: Improving (remains lethargic but arousable, AAOx3. not eating much. no acute events overnight) Review of Systems is unable to be obtained Physical Examination - Vital Signs Temperature: 98.2 F Blood Pressure: 152/86 Pulse: 98 Respirations: 20 Pulse Ox (%): 92 - Studies Microbiology Data (last 24 hrs): 09/16/20 08:10 Blood - Blood Aerobic Blood Culture - Final Escherichia Coli 09/16/20 08:10 Blood - Blood Blood Culture Gram Stain - Final Assessment & Plan Physician Review Additional Text: Physical Exam: Gen: lethargic but arousable, oriented x 3 HEENT: PERRL CV: sinus tachycardia 90-100, no murmur Pulm: crackles bilaterally, worse on R, shallow inspirations on 4 L Abd: soft, NTND Ext: swelling of b/l hands, L>R. trace ankle edema, good 2+ DP/PT pulses Problem List: Severe Sepsis secondary to R sided pneumonia Acute hypoxemic respiratory failure secondary to R sided pneumonia Metabolic encephalopathy secondary to sepsis /pneumonia Elevated LFTs -Severe sepsis, resolved. BP improved, s/p significant IVF. Will give 20 IV lasix today -continue BIPAP/NC as needed -cultures with e.coli bacteremia, de-escalated to levaquin after discussion with pulm -repeat blood cultures (09/18): negative so far -continue to monitor in ICU -patient reported 6 beers/day, boyfriend reports 3-5 beers/day, son reported at least 2 months ago she was drinking to pass out daily -continue to monitor for alcohol withdrawal, given lethargy, continue thiamine to BID. Ativan dc'd on 09/18, will dc PRN librium for now -boyfriend is not sure but thinks last drink was 2-3 days prior to admission -if not eating much, may need dobhoff and tube feeds, has been ~4 days since good amount of nutrition VTE: lovenox Code: full Dispo: hospitalization > 2 days Time Spent Managing Pts Care (In Minutes): 45
[2020-09-20] MEDS: ENSURE ENLIVE 237 ML CAN PO SCH (20:32)
[2020-09-21] MEDS ORDERED: NA CHLORIDE 0.9% 100 ML IV ONE (02:01)
[2020-09-21] MEDS: KCL 20 MEQ/100 mL IVPB 20 MEQ/100 ML BAG IV SCH ×2 (02:04→04:08)
[2020-09-21] MEDS: IPRATROPIUM BROM 0.5MG/2.5ML NEB SCH ×4 (02:10→20:15)
[2020-09-21] MEDS ORDERED: KCL 20 MEQ/100 mL IVPB 20 MEQ/100 ML BAG IV ONE ×2 (02:16→04:21)
[2020-09-21] MEDS ORDERED: IPRATROPIUM BROM 0.5MG/2.5ML ONE ×3 (02:44→20:39)
[2020-09-21] MEDS ORDERED: NA CHLORIDE 0.9% 250 ML IV ONE (04:10)
[2020-09-21] MEDS ORDERED: NA CHLORIDE 0.9% 250 ML ONE (04:22)
[2020-09-21] MEDS: BENZONATATE 100 MG CAP PO PRN (04:26)
[2020-09-21] MEDS ORDERED: IBUPROFEN 400 MG TAB PO ONE (04:31)
[2020-09-21] MEDS ORDERED: BENZONATATE 100 MG CAP PO ONE (04:40)
[2020-09-21] MEDS ORDERED: IBUPROFEN 400 MG TAB ONE (04:51)
[2020-09-21 05:06] LABS: ALT/SGPT 110 U/L (12-78); AST/SGOT 158 U/L (15-37); Albumin 1.7 g/dL (3.4-5.0); Alkaline Phosphatase 144 U/L (45-117); BUN Blood Urea Nitrogen 9 mg/dL (7-18); Bicarbonate 34 mmol/L (21-32); Bilirubin Total 0.7 mg/dL (0.2-1.0); Glucose Level 115 mg/dL (74-106); Magnesium 1.8 mg/dL (1.8-2.4); Potassium 3.9 mmol/L (3.5-5.1); Protein, Total 5.4 g/dL (6.4-8.2); Sodium Level 140 mmol/L (136-145)
[2020-09-21 05:16] LABS: Absolute Lymphocytes (CBC) 1.2 K/uL (0.7-4.9); Basophils % 0.4 % (0-1.3); Hematocrit 32.9 % (36.0-45.0); Lymphocytes % 15.3 % (15.3-44.8); MPV 9.9 fL (7.6-11.3)
[2020-09-21] MEDS ORDERED: MAGNESIUM SULFATE 1 gm IVPB 1 GM/100 ML BAG IV ONE ×2 (06:45→08:00)
[2020-09-21] MEDS: INSULIN -REGULAR HUMAN 50 UNIT/0.5 ML ML SQ SCH ×4 (07:30→21:00)
[2020-09-21] MEDS: FOLIC ACID 1 MG TABLET PO SCH (08:31)
[2020-09-21] MEDS: NICOTINE 21 MG/PAT TD SCH (08:31)
[2020-09-21] MEDS: THIAMINE 200 MG/2 ML INJ IVP SCH ×2 (08:31→21:00)
[2020-09-21] MEDS: ENOXAPARIN 40 MG/0.4 ML SQ SCH (08:31)
[2020-09-21] MEDS: CITALOPRAM 10 MG TABLET PO SCH (08:31)
[2020-09-21] MEDS: METOPROLOL TAR 25 MG TAB PO SCH ×2 (08:31→21:47)
[2020-09-21] MEDS: ENSURE ENLIVE 237 ML CAN PO SCH ×3 (08:32→21:46)
[2020-09-21] MEDS ORDERED: METOPROLOL TAR 25 MG TAB ONE ×2 (08:43→21:52)
[2020-09-21] MEDS ORDERED: THIAMINE 200 MG/2 ML INJ ONE (08:43)
[2020-09-21] MEDS ORDERED: FOLIC ACID 1 MG TABLET ONE (08:43)
[2020-09-21] MEDS ORDERED: ENOXAPARIN 40 MG/0.4 ML SQ ONE (08:43)
[2020-09-21] MEDS ORDERED: NICOTINE 21 MG/PAT TD ONE (08:43)
--- NOTE | 2020-09-21 09:00 | RAD REPORT ---
EXAM DESCRIPTION: RAD - Chest Single View - 09/21/2020 6:56 am CLINICAL HISTORY: hypoxia, pneumonia Chest pain. COMPARISON: Abdomen 1 View (KUB) dated 09/20/2020; Chest Single View dated 09/20/2020; Chest Single Vi ew dated 09/19/2020; Chest Single View dated 09/18/2020 FINDINGS: Portable technique limits examination quality. Moderate bilateral interstitial lung opacities are present, unchanged. The heart is upper limit vicki l in size. S-shaped thoracic scoliosis is present. IMPRESSION: Stable chest since yesterday's examination.
--- NOTE | 2020-09-21 14:39 | RAD REPORT ---
EXAM DESCRIPTION: RAD - Chest Single View - 09/21/2020 2:30 pm CLINICAL HISTORY: Dobhoff placement COMPARISON: KUB September 20, CT abdomen September 16 TECHNIQUE: AP portable chest image was obtained 09/21/2020 2:30 pm . FINDINGS: Feeding tube has been placed. The feeding tube enters the stomach and in loops superiorly with the tip redirected superiorly into the distal esophagus. No abnormal kink or bend. Partially imaged lower lung maharaj showed extensive lung parenchymal disease similar to September 21 ch est film. Bowel gas pattern is similar to prior imaging. IMPRESSION: Feeding tube has been placed and loops in the stomach with the tip redirected superiorly back into the distal esophagus.
[2020-09-21] MEDS: Levofloxacin 750mg IV 750 MG/150 ML BAG IV SCH (15:00)
[2020-09-21] MEDS: ONDANSETRON 4 MG/2 ML VIAL IV PRN (15:08)
[2020-09-21] MEDS: GUAIFENESIN/CODEINE 5ML UCUP PO PRN (15:10)
--- NOTE | 2020-09-21 15:13 | P.PN ---
Subjective Date of Service: 09/21/20 Chief Complaint: Sepsis, Pneumonia Subjective: Improving (Labs improving, patient is a little bit more alert, appears very tired and weak. On BiPAP overnight. Did not eat much) Review of Systems 10-point ROS is otherwise unremarkable Physical Examination - Vital Signs Temperature: 97.4 F Blood Pressure: 159/77 Pulse: 88 Respirations: 20 Pulse Ox (%): 90 - Studies Microbiology Data (last 24 hrs): 09/16/20 08:10 Blood - Blood Aerobic Blood Culture - Final Escherichia Coli 09/16/20 08:10 Blood - Blood Blood Culture Gram Stain - Final 09/16/20 08:10 Blood - Blood Anaerobic Blood Culture - Final No growth in 5 days. Assessment & Plan Physician Review Additional Text: Physical Exam: Gen: Awake, sleepy, oriented x 3 HEENT: PERRL CV: sinus tachycardia 90s, no murmur Pulm: crackles bilaterally, worse on R, shallow inspirations on BIPAP Abd: soft, NTND Ext: No edema, good 2+ DP/PT pulses Problem List: Severe Sepsis secondary to R sided pneumonia Acute hypoxemic respiratory failure secondary to R sided pneumonia Metabolic encephalopathy secondary to sepsis /pneumonia Acute on Chronic malnutrition, moderate Elevated LFTs -Severe sepsis, resolved. BP improved, s/p significant IVF. 20 mg IV Lasix given 09/20 with good response -continue BIPAP/NC as needed -cultures with e.coli bacteremia, de-escalated to levaquin after discussion with pulm -repeat blood cultures (09/18): negative so far -continue to monitor in ICU -patient reported 6 beers/day, boyfriend reports 3-5 beers/day, son reported at least 2 months ago she was drinking to pass out daily -continue to monitor for alcohol withdrawal, given lethargy, continue thiamine to BID. Ativan dc'd on 09/18 -boyfriend is not sure but thinks last drink was 2-3 days prior to admission -patient was only able eat small bites yesterday, will need up off placed today to start nutrition. Patient is a chronic alcoholic and in addition, has not eaten much in several days. -LFTs improving, likely from chronic alcohol use and hypotension on admission. VTE: lovenox Code: full Dispo: hospitalization > 2 days Time Spent Managing Pts Care (In Minutes): 35
[2020-09-21] MEDS ORDERED: ONDANSETRON 4 MG/2 ML VIAL ONE (15:23)
[2020-09-21] MEDS ORDERED: guaiFENesin 100 MG/5 ML UCUP ONE (15:23)
[2020-09-21] MEDS ORDERED: GUAIFENESIN/CODEINE 5ML UCUP ONE (15:26)
[2020-09-21] MEDS ORDERED: Levofloxacin 750mg IV 0 MG/0 ML BAG IV ONE (16:25)
--- NOTE | 2020-09-21 16:55 | CON ---
History Of Present Illness: This is a 55-year-old female. I was called for evaluation of right-side d pneumonia and sepsis. The patient also has respiratory failure with BiPAP and 5 L nasal cannula us age at this time, not able to communicate well except as per staff the patient was able to talk a few words on questioning. The patient denies any pain at this time. No diarrhea as per staff. Past Medical History: Includes tobacco use. Social History: Tobacco positive. Alcohol negative. Family History: Noncontributory. Medications: The patient is currently on Levaquin for blood cultures being positive for E coli. Allergies: INCLUDE SULFA DRUGS. Review of Systems: Unable to obtain. Physical Examination: General: This is a 55-year-old female, lying in bed, not in any acute distress other than mild respi ratory distress. Vital Signs: Temperature 97, pulse 88, respirations 20, blood pressure 159/77. HEENT: Unremarkable. Dobhoff in place. Neck: Supple. Lungs: Scattered rhonchi on both lungs, right more than left. Heart: S1, S2. Regular. Abdomen: Soft. Bowel sounds present. Extremities: No edema. Laboratory Data: Shows WBC 8, which has improved since the admission where leukocyte was 2.4. Hemog lobin is 11.5, platelets are 87. Chemistry shows sodium 140, potassium 3.9, chloride 105, bicarb 34, BUN 9, creatinine 0.36, glucose 115, albumin is 1.7. Procalcitonin is 4.67. Blood cultures on are positive for E coli. Repeat culture on September 18 negative. Chest x-ray done today s hows the patient has feeding tube in place and right-sided lung field pneumonia also noted. Assessment And Plan: Right lower lobe pneumonia in a patient with no other significant medical histo ry other than tobacco, protein-calorie malnourishment, pancytopenia on arrival, the patient has sepsi s and respiratory failure. Her benzodiazepines were positive on admission and then 1-hour positive a lso, possible aspiration. We will recommend the patient to be switched to meropenem, which will aleah daniel E coli and possible aspiration. Discontinue Levaquin. Continue supportive care. Thank you Dr. Tobar for consult. NF/MODL Voice ID: [id number] Report ID: [id number]
[2020-09-21] MEDS ORDERED: Meropenem 1000 MG/VIAL IV SCH (17:00)
[2020-09-21] MEDS: Meropenem 1,000 MG in NA CHLORIDE 0.9% 100 ML IV SCH (17:50)
[2020-09-21] MEDS ORDERED: THIAMINE HCL 100 MG TABLET ONE (21:52)
[2020-09-22] MEDS: Meropenem 1,000 MG in NA CHLORIDE 0.9% 100 ML IV SCH ×3 (00:41→18:16)
[2020-09-22] MEDS: IPRATROPIUM BROM 0.5MG/2.5ML NEB SCH ×4 (01:50→20:10)
[2020-09-22] MEDS ORDERED: IPRATROPIUM BROM 0.5MG/2.5ML ONE ×3 (02:04→14:06)
[2020-09-22 04:51] LABS: Basophils % 0.9 % (0-1.3); Hematocrit 31.8 % (36.0-45.0); Lymphocytes % 13.8 % (15.3-44.8); MPV 10.6 fL (7.6-11.3); RBC Red Blood Cell Count 3.46 M/uL (3.86-4.86)
[2020-09-22 05:11] LABS: ALT/SGPT 107 U/L (12-78); AST/SGOT 160 U/L (15-37); Albumin 1.6 g/dL (3.4-5.0); Alkaline Phosphatase 132 U/L (45-117); BUN Blood Urea Nitrogen 9 mg/dL (7-18); Bicarbonate 35 mmol/L (21-32); Bilirubin Total 0.6 mg/dL (0.2-1.0); Glucose Level 113 mg/dL (74-106); Magnesium 2.2 mg/dL (1.8-2.4); Potassium 3.3 mmol/L (3.5-5.1); Protein, Total 5.2 g/dL (6.4-8.2); Sodium Level 139 mmol/L (136-145)
[2020-09-22] MEDS: GUAIFENESIN/CODEINE 5ML UCUP PO PRN (06:23)
[2020-09-22] MEDS ORDERED: GUAIFENESIN/CODEINE 5ML UCUP ONE (06:37)
[2020-09-22] MEDS: INSULIN -REGULAR HUMAN 50 UNIT/0.5 ML ML SQ SCH ×4 (07:30→20:41)
[2020-09-22] MEDS ORDERED: POTASSIUM 25 MEQ EFFERV TAB PO ONE (08:00)
[2020-09-22] MEDS ORDERED: POTASSIUM 25 MEQ EFFERV TAB ONE (08:44)
[2020-09-22] MEDS ORDERED: FOLIC ACID 1 MG TABLET ONE (08:45)
[2020-09-22] MEDS ORDERED: METOPROLOL TAR 25 MG TAB ONE (08:46)
[2020-09-22] MEDS ORDERED: ENOXAPARIN 40 MG/0.4 ML SQ ONE (08:46)
[2020-09-22] MEDS ORDERED: NICOTINE 21 MG/PAT TD ONE (08:47)
[2020-09-22] MEDS ORDERED: THIAMINE 200 MG/2 ML INJ ONE (08:47)
[2020-09-22] MEDS: NICOTINE 21 MG/PAT TD SCH (09:58)
[2020-09-22] MEDS: FOLIC ACID 1 MG TABLET PO SCH (09:59)
[2020-09-22] MEDS: METOPROLOL TAR 25 MG TAB PO SCH ×2 (09:59→20:39)
[2020-09-22] MEDS: CITALOPRAM 10 MG TABLET PO SCH (10:00)
[2020-09-22] MEDS: ENSURE ENLIVE 237 ML CAN PO SCH ×3 (10:00→20:45)
[2020-09-22] MEDS: ENOXAPARIN 40 MG/0.4 ML SQ SCH (10:01)
[2020-09-22] MEDS: THIAMINE 200 MG/2 ML INJ IVP SCH ×2 (10:02→20:39)
--- NOTE | 2020-09-22 12:09 | P.PN ---
Subjective Date of Service: 09/22/20 Chief Complaint: Sepsis, Pneumonia Subjective: Improving (Patient is doing much better more alert responsive off BiPAP) Review of Systems General: Weakness Respiratory: Cough, Shortness of Breath Physical Examination - Vital Signs Temperature: 98.7 F Blood Pressure: 110/61 Pulse: 81 Respirations: 22 Pulse Ox (%): 98 - Physical Exam General: Alert, Cooperative Respiratory: Crackles/rales, Expiratory wheezes Cardiovascular: No edema, Normal S1 S2 - Studies Microbiology Data (last 24 hrs): 09/16/20 08:10 Blood - Blood Aerobic Blood Culture - Final Escherichia Coli 09/16/20 08:10 Blood - Blood Blood Culture Gram Stain - Final 09/16/20 08:10 Blood - Blood Anaerobic Blood Culture - Final No growth in 5 days. Assessment & Plan - Problems (Diagnosis) (1) Pneumonia Current Visit: Yes Status: Acute Plan: Patient admitted with severe community-acquired pneumonia possibly underlying COPD and alcohol abuse she is doing much better more alert patient will be changed to nasal cannula oxygen stable to be transferred to the floor infectious Disease change antibiotic to meropenem patient is to li improving clinically on levofloxacin mildly anemic white count is back up to normal blood pressure is stable transfer to the floor E coli bacteremia consulted to levofloxacin change advisor to p.o. levofloxacin once eating and drinking repeat blood cultures negative Qualifiers: Pneumonia type: due to unspecified organism Laterality: right
--- NOTE | 2020-09-22 18:10 | P.PN ---
Subjective Date of Service: 09/22/20 Chief Complaint: Sepsis, Pneumonia Patient is much alert. She is complaining of back pain. She was able to participate in physical therapy today. Physical Examination - Vital Signs Temperature: 98.3 F Blood Pressure: 126/78 Pulse: 75 Respirations: 23 Pulse Ox (%): 92 - Physical Exam General: Alert, In no apparent distress HEENT: Mucous membr. moist/pink, Other (Oxygen by nasal cannula.) Neck: JVD not distended Respiratory: Normal air movement, Crackles/rales (Bilateral) Gastrointestinal: Soft and benign, Non-distended Musculoskeletal: No swelling Integumentary: No rashes Neurological: Normal speech, Normal strength at 5/5 x4 extr Assessment And Plan Physician Review Additional Text: Physical Exam: Gen: Awake, sleepy, oriented x 3 HEENT: PERRL CV: sinus tachycardia 90s, no murmur Pulm: crackles bilaterally, worse on R, shallow inspirations on BIPAP Abd: soft, NTND Ext: No edema, good 2+ DP/PT pulses Problem List: Severe Sepsis secondary to R sided pneumonia Acute hypoxemic respiratory failure secondary to R sided pneumonia Metabolic encephalopathy secondary to sepsis /pneumonia Acute on Chronic malnutrition, moderate Elevated LFTs -Severe sepsis, resolved. BP improved. -continue nasal cannula. BiPAP as needed. -infectious disease input appreciated. -IV meropenem per infectious disease. -repeat blood cultures (09/18): negative so far -patient downgraded to the medical floor. -patient reported 6 beers/day, boyfriend reports 3-5 beers/day, son reported at least 2 months ago she was drinking to pass out daily -she should have passed the window for alcohol withdrawal. -continue thiamine to BID. -patient not tolerating some liquid diet. -nutritional supplementation. VTE: lovenox Code: full Dispo: hospitalization > 2 days
[2020-09-22] MEDS: HYDROCODONE/APAP 5/325 MG TAB PO PRN (19:37)
[2020-09-22] MEDS: KCL 20 MEQ/100 mL IVPB 20 MEQ/100 ML BAG IV SCH ×2 (20:38→20:43)
[2020-09-23] MEDS: Meropenem 1,000 MG in NA CHLORIDE 0.9% 100 ML IV SCH ×3 (00:35→18:07)
[2020-09-23] MEDS: HYDROCODONE/APAP 5/325 MG TAB PO PRN ×3 (00:54→14:20)
[2020-09-23] MEDS: IPRATROPIUM BROM 0.5MG/2.5ML NEB SCH ×4 (01:35→20:30)
[2020-09-23 06:02] LABS: Absolute Lymphocytes (CBC) 0.9 K/uL (0.7-4.9); Basophils % 0.4 % (0-1.3); Hematocrit 31.7 % (36.0-45.0); Lymphocytes % 14.7 % (15.3-44.8); MPV 10.2 fL (7.6-11.3); RBC Red Blood Cell Count 3.43 M/uL (3.86-4.86)
[2020-09-23 06:18] LABS: BUN Blood Urea Nitrogen 9 mg/dL (7-18); Bicarbonate 38 mmol/L (21-32); Glucose Level 87 mg/dL (74-106); Magnesium 2.3 mg/dL (1.8-2.4); Phosphorus 3.6 mg/dL (2.5-4.9); Potassium 3.8 mmol/L (3.5-5.1); Sodium Level 139 mmol/L (136-145)
[2020-09-23] MEDS ORDERED: POTASSIUM 25 MEQ EFFERV TAB PO ONE (06:40)
--- NOTE | 2020-09-23 06:42 | RAD REPORT ---
EXAM DESCRIPTION: RAD - Chest Single View - 09/23/2020 6:07 am CLINICAL HISTORY: Pneumonia COMPARISON: September 21 TECHNIQUE: AP portable chest image was obtained 09/23/2020 6:07 am . FINDINGS: Increase consolidation and increased volume loss are present in the right upper lobe. Prog ressive infiltrate changes are present in the mid left lung field. Heart and vasculature are normal. No measurable pleural effusion and no pneumothorax. No acute bony abnormality seen. Feeding tube is in place. Tube is not entirely imaged; however, the tube is curled in the stomach with the tip near the GE junction. IMPRESSION: Worsening consolidation and volume loss right upper lobe. Worsening infiltrate left mid lung field. Feeding tube is curled in the stomach with the tip at the GE junction.
[2020-09-23] MEDS: INSULIN -REGULAR HUMAN 50 UNIT/0.5 ML ML SQ SCH ×4 (07:30→20:28)
[2020-09-23 08:37] LABS: Blood Morphology Comment NOT SEEN (NOT SEEN); Platelet Estimate DECR
[2020-09-23] MEDS: CITALOPRAM 10 MG TABLET PO SCH (08:46)
[2020-09-23] MEDS: ENOXAPARIN 40 MG/0.4 ML SQ SCH (08:46)
[2020-09-23] MEDS: THIAMINE 200 MG/2 ML INJ IVP SCH (08:46)
[2020-09-23] MEDS: METOPROLOL TAR 25 MG TAB PO SCH ×2 (08:48→20:26)
[2020-09-23] MEDS: NICOTINE 21 MG/PAT TD SCH (08:48)
[2020-09-23] MEDS: FOLIC ACID 1 MG TABLET PO SCH (08:48)
[2020-09-23] MEDS: ENSURE ENLIVE 237 ML CAN PO SCH ×3 (08:50→20:27)
--- NOTE | 2020-09-23 12:26 | P.PN ---
Subjective Date of Service: 09/23/20 Chief Complaint: Sepsis, Pneumonia Subjective: Improving (Patient is doing much better she is more alert responsive cooperative) Review of Systems General: Weakness Respiratory: Shortness of Breath Physical Examination - Vital Signs Temperature: 97.3 F Blood Pressure: 162/83 Pulse: 75 Respirations: 20 Pulse Ox (%): 94 - Physical Exam General: Alert, Mild distress Neck: Supple Respiratory: Crackles/rales, Expiratory wheezes Cardiovascular: No edema, Normal S1 S2 Assessment & Plan - Problems (Diagnosis) (1) Pneumonia Current Visit: Yes Status: Acute Plan: Patient is clinically improving she is much more alert now will Dc BiPAP use nasal cannula oxygen physical therapy chest x-ray shows bilateral infiltrate worsening continue with meropenem blood pressure is mildly elevated I have advised patient to use some Jevity through the be adopt cough for now patient is weak white count normal while anemia blood pressure is mildly elevated Qualifiers: Pneumonia type: due to unspecified organism Laterality: bilateral
--- NOTE | 2020-09-23 13:17 | PN ---
Subjective: The patient is lying in bed. No new acute event. Complains of right-sided chest pain. Objective: Vital Signs: Temperature 97, pulse 75, respirations 20, blood pressure 162/83. Lungs: Bilateral crackles. Heart: S1, S2. Regular. Abdomen: Soft, nontender. Bowel sounds present. Extremity: No edema. Laboratory Data: Shows WBC 6.4, hemoglobin 10.8, platelets are 126. Chemistry shows sodium 139, pot assium 3.8, chloride 101, bicarb 38, BUN 9, creatinine 0.3, glucose 87. Micro data shows E coli in t he blood. Repeat cultures done on are negative. The patient is currently being treated with me ropenem for precaution of aspiration as the patient was vomiting. Assessment And Plan: Bilateral pneumonia, possible aspiration and the patient has E coli in the bloo d. Continue meropenem for now. We can switch to Cipro and clindamycin on discharge, total of 2 week s from September 18. Continue pain management. We will follow the patient as needed. NF/MODL Voice ID: [id number] Report ID: [id number]
--- NOTE | 2020-09-23 15:07 | P.PN ---
Subjective Date of Service: 09/23/20 Chief Complaint: Sepsis, Pneumonia No major changes from yesterday She was able to participate in physical therapy today. She is tolerating feeding. Physical Examination - Vital Signs Temperature: 97.3 F Blood Pressure: 162/83 Pulse: 75 Respirations: 20 Pulse Ox (%): 97 - Physical Exam General: In no apparent distress HEENT: Other (NG-tube) Neck: Supple, JVD not distended Respiratory: Normal air movement, Crackles/rales (Bibasilar) Cardiovascular: Regular rate/rhythm, Normal S1 S2 Gastrointestinal: Soft and benign, Non-distended, No tenderness Musculoskeletal: No swelling, No tenderness Integumentary: No rashes Neurological: Other (Globally weak. No focal motor deficits) Assessment And Plan Physician Review Additional Text: Physical Exam: Gen: Awake, sleepy, oriented x 3 HEENT: PERRL CV: sinus tachycardia 90s, no murmur Pulm: crackles bilaterally, worse on R, shallow inspirations on BIPAP Abd: soft, NTND Ext: No edema, good 2+ DP/PT pulses Problem List: Severe Sepsis secondary to R sided pneumonia. Suspected aspiration pneumonia. Acute hypoxemic respiratory failure secondary to R sided pneumonia Metabolic encephalopathy secondary to sepsis /pneumonia Acute on Chronic malnutrition, moderate Elevated LFTs -Severe sepsis, resolved. BP improved. -continue nasal cannula. BiPAP as needed. -infectious disease input appreciated. -continue IV meropenem per infectious disease -repeat blood cultures (09/18): negative so far -patient downgraded to the medical floor. -patient reported 6 beers/day, boyfriend reports 3-5 beers/day, son reported at least 2 months ago she was drinking to pass out daily -continue thiamine to BID. -patient now tolerating some liquid diet. -remove NGT. -nutritional supplementation. VTE: lovenox Code: full Dispo: hospitalization > 2 days
[2020-09-24] MEDS: IPRATROPIUM BROM 0.5MG/2.5ML NEB SCH ×4 (01:30→20:40)
[2020-09-24] MEDS: Meropenem 1,000 MG in NA CHLORIDE 0.9% 100 ML IV SCH (02:09)
[2020-09-24] MEDS: HYDROCODONE/APAP 5/325 MG TAB PO PRN ×3 (02:13→18:39)
[2020-09-24] MEDS: INSULIN -REGULAR HUMAN 50 UNIT/0.5 ML ML SQ SCH ×4 (07:30→20:32)
[2020-09-24] MEDS: ENSURE ENLIVE 237 ML CAN PO SCH ×3 (09:00→20:31)
[2020-09-24] MEDS: CITALOPRAM 10 MG TABLET PO SCH (09:33)
[2020-09-24] MEDS: levoFLOXacin 500 MG TAB PO SCH (09:33)
[2020-09-24] MEDS: METOPROLOL TAR 25 MG TAB PO SCH ×2 (09:34→20:30)
[2020-09-24] MEDS: FOLIC ACID 1 MG TABLET PO SCH (09:34)
[2020-09-24] MEDS: NICOTINE 21 MG/PAT TD SCH (09:35)
[2020-09-24] MEDS: ENOXAPARIN 40 MG/0.4 ML SQ SCH (09:35)
[2020-09-24] MEDS: GUAIFENESIN/CODEINE 5ML UCUP PO PRN (09:44)
--- NOTE | 2020-09-24 18:41 | P.PN ---
Subjective Date of Service: 09/24/20 Chief Complaint: Sepsis, Pneumonia Patient is awake and alert. She is doing much better. Tolerated full diet and asking for her diet to be advanced. Patient ambulated with a walker during PT session today. Physical Examination - Vital Signs Temperature: 97.8 F Blood Pressure: 174/82 Pulse: 68 Respirations: 20 Pulse Ox (%): 99 - Physical Exam General: Alert, In no apparent distress HEENT: Mucous membr. moist/pink Neck: JVD not distended Respiratory: Normal air movement, Crackles/rales (Bilateral) Cardiovascular: No edema, Regular rate/rhythm, Normal S1 S2 Gastrointestinal: Soft and benign, Non-distended, No tenderness Musculoskeletal: No swelling Integumentary: No rashes Neurological: Normal strength at 5/5 x4 extr, Cranial nerves 3-12 intact Assessment And Plan Physician Review Additional Text: Physical Exam: Gen: Awake, sleepy, oriented x 3 HEENT: PERRL CV: sinus tachycardia 90s, no murmur Pulm: crackles bilaterally, worse on R, shallow inspirations on BIPAP Abd: soft, NTND Ext: No edema, good 2+ DP/PT pulses Problem List: Severe Sepsis secondary to R sided pneumonia Acute hypoxemic respiratory failure secondary to R sided pneumonia Metabolic encephalopathy secondary to sepsis /pneumonia Acute on Chronic malnutrition, moderate Elevated LFTs -Severe sepsis, resolved. -continue nasal cannula. -infectious disease input appreciated. -IV meropenem per infectious disease. -repeat blood cultures (09/18): negative so far -patient reported 6 beers/day, boyfriend reports 3-5 beers/day, son reported at least 2 months ago she was drinking to pass out daily -she should have passed the window for alcohol withdrawal. -continue thiamine to BID. -advanced to solid diet -nutritional supplementation. -continue PT. VTE: lovenox Code: full Dispo: Anticipating home with home health.
[2020-09-25] MEDS: HYDROCODONE/APAP 5/325 MG TAB PO PRN ×2 (00:25→08:48)
[2020-09-25] MEDS: IPRATROPIUM BROM 0.5MG/2.5ML NEB SCH ×3 (02:00→14:00)
[2020-09-25] MEDS: INSULIN -REGULAR HUMAN 50 UNIT/0.5 ML ML SQ SCH ×3 (07:30→16:09)
[2020-09-25] MEDS: ONDANSETRON 4 MG/2 ML VIAL IV PRN (08:39)
[2020-09-25] MEDS: levoFLOXacin 500 MG TAB PO SCH (08:42)
[2020-09-25] MEDS: FOLIC ACID 1 MG TABLET PO SCH (08:42)
[2020-09-25] MEDS: METOPROLOL TAR 25 MG TAB PO SCH (08:42)
[2020-09-25] MEDS: CITALOPRAM 10 MG TABLET PO SCH (08:43)
[2020-09-25] MEDS: NICOTINE 21 MG/PAT TD SCH (08:43)
[2020-09-25] MEDS: ENSURE ENLIVE 237 ML CAN PO SCH ×2 (08:44→13:27)
[2020-09-25] MEDS: ENOXAPARIN 40 MG/0.4 ML SQ SCH (08:44)
--- NOTE | 2020-09-25 13:40 | P.PN ---
Subjective Date of Service: 09/25/20 Chief Complaint: Sepsis, Pneumonia Subjective: Improving (Patient is doing much better she is alert oriented responsive cooperative room-air saturation satisfactory) Review of Systems General: Weakness Respiratory: Shortness of Breath Physical Examination - Vital Signs Temperature: 98.1 F Blood Pressure: 176/91 Pulse: 67 Respirations: 19 Pulse Ox (%): 100 - Physical Exam General: Alert, In no apparent distress, Oriented x3 Respiratory: Clear to auscultation bilaterally, Diminished, Expiratory wheezes Cardiovascular: No edema, Normal S1 S2 Assessment & Plan - Problems (Diagnosis) (1) Pneumonia Current Visit: Yes Status: Acute Plan: Patient is doing much better very alert oriented responsive cooperative plan to discharge home on prednisone 20 mg twice a day for a week and then 10 mg twice a day continue with levofloxacin fire mg once a day for a week add bronchodilator example Advair 1 puff twice a day patient will not qualify for home O2 presumed underlying COPD heavy smoker console not to smoke or drink discharge home Qualifiers: Pneumonia type: due to unspecified organism Laterality: bilateral
[2020-09-25 14:33] VITALS: O2SAT 94
[2020-09-25 18:11] VITALS: BP 191/94; TEMP 98
--- NOTE | 2020-09-25 18:13 | P.PN ---
Subjective Date of Service: 09/25/20 Chief Complaint: Sepsis, Pneumonia Patient is awake and alert. She is doing much better. Patient ambulated with a walker during PT session today. She is now tolerating room air. Physical Examination - Vital Signs Temperature: 98.0 F Blood Pressure: 191/94 Pulse: 74 Respirations: 18 Pulse Ox (%): 94 - Physical Exam General: In no apparent distress, Oriented x3 HEENT: Mucous membr. moist/pink Respiratory: Crackles/rales (Bilateral) Cardiovascular: No edema, Regular rate/rhythm, Normal S1 S2 Gastrointestinal: Normal bowel sounds, Soft and benign, Non-distended, No tenderness Musculoskeletal: No swelling Integumentary: No rashes Neurological: Normal strength at 5/5 x4 extr Assessment And Plan Physician Review Additional Text: Physical Exam: Gen: Awake, sleepy, oriented x 3 HEENT: PERRL CV: sinus tachycardia 90s, no murmur Pulm: crackles bilaterally, worse on R, shallow inspirations on BIPAP Abd: soft, NTND Ext: No edema, good 2+ DP/PT pulses Problem List: Severe Sepsis secondary to R sided pneumonia Acute hypoxemic respiratory failure secondary to R sided pneumonia Metabolic encephalopathy secondary to sepsis /pneumonia Acute on Chronic malnutrition, moderate Elevated LFTs -Severe sepsis, resolved. -infectious disease input appreciated. -IV meropenem per infectious disease. -repeat blood cultures (09/18): negative so far -patient reported 6 beers/day, boyfriend reports 3-5 beers/day, son reported at least 2 months ago she was drinking to pass out daily -she should have passed the window for alcohol withdrawal. -continue thiamine to BID. -advanced to solid diet -nutritional supplementation. -continue PT. VTE: lovenox Code: full Dispo: Anticipating home with home health.
--- NOTE | 2020-09-25 18:45 | P.DS ---
Admission Date: 09/16/20 Discharge Date: 09/25/20 Disposition: [place] HOME/HOME HEALTH CARE Discharge Condition: FAIR Reason for Admission: Sepsis, Pneumonia Consultations: Pulmonary-Dr. Arteaga - Problems (1) Pneumonia Status: Acute Qualifiers: Pneumonia type: due to unspecified organism Laterality: bilateral (2) Septic shock Status: Acute (3) Tobacco use Status: Acute (4) Metabolic encephalopathy Status: Acute (5) Acute respiratory failure with hypoxia Status: Acute (6) Moderate malnutrition Status: Acute (7) Alcohol abuse Status: Acute Brief History of Present Illness: 55-year-old woman with a history of alcohol and tobacco abuse was brought to the emergency department because patient was found very ill and somnolent. Patient was found to be hypotensive in the ED. CTA thorax done in the emergency department demonstrated large right-sided pneumonia. Patient diagnosed with septic shock, sepsis protocol initiated in the ED and patient given bolus of IV fluid. Patient subsequently admitted to the intensive care unit for further management. Hospital Course: Patient was given several boluses of IV normal saline with good response. Patient was also started on aggressive antibiotic therapy with IV cefepime and vancomycin. Her urine culture yielded no growth. Multiple blood cultures grew E. coli. Patient seen and evaluated by infectious disease-Dr. Alcocer. Antibiotics was changed to IV meropenem given mall nutrition, history of alcoholism and large pneumonia. Patient clinically improved with treatment. He initially required high-flow oxygen. Oxygen was weaned off during the course of treatment. Patient did not experience alcohol withdrawal symptoms. She was evaluated by physical therapy. Her functional performance status was initially poor due to her illness but she improved and was able to ambulate several feet with a walker. Patient has improved clinically. She is discharged with home health to continue physical therapy. She will need repeat chest x-ray within 6 weeks to make sure the infiltrate clears and there is no underlying lung mass. She is discharged with Levaquin and needs to complete at least 7 more days of treatment. Vital Signs/Physical Exam: Temp Pulse Resp BP Pulse Ox 98.0 F 74 18 191/94 H 94 09/25/20 18:13 09/25/20 18:13 09/25/20 18:13 09/25/20 18:13 09/25/20 18:13 General: Alert, In no apparent distress Neck: JVD not distended Respiratory: Crackles/rales (Bilateral, worse on the right) Cardiovascular: No edema, Regular rate/rhythm Gastrointestinal: Soft and benign, Non-distended, No tenderness Musculoskeletal: No swelling, No tenderness Neurological: Normal strength at 5/5 x4 extr Laboratory Data at Discharge: WBC 6.40 K/uL (4.3-10.9) 09/23/20 05:47 Hgb 10.8 g/dL (12.0-15.0) L 09/23/20 05:47 Hct 31.7 % (36.0-45.0) L 09/23/20 05:47 Plt Count 126 K/uL (152-406) L D 09/23/20 05:47 PT 11.6 SECONDS (9.5-12.5) 09/16/20 08:10 INR 0.98 09/16/20 08:10 APTT 30.2 SECONDS (24.3-36.9) 09/16/20 08:10 Sodium 139 mmol/L (136-145) 09/23/20 05:47 Potassium Cancelled 09/23/20 06:00 BUN 9 mg/dL (7-18) 09/23/20 05:47 Creatinine 0.32 mg/dL (0.55-1.3) L 09/23/20 05:47 Glucose 87 mg/dL (74-106) 09/23/20 05:47 Phosphorus 3.6 mg/dL (2.5-4.9) 09/23/20 05:47 Magnesium 2.3 mg/dL (1.8-2.4) 09/23/20 05:47 Total Bilirubin 0.6 mg/dL (0.2-1.0) 09/22/20 04:39 AST 160 U/L (15-37) H 09/22/20 04:39 ALT 107 U/L (12-78) H 09/22/20 04:39 Alkaline Phosphatase 132 U/L (45-117) H 09/22/20 04:39 Lipase 52 U/L (73-393) L 09/16/20 08:10 Home Medications: Citalopram [Celexa*] 40 mg PO DAILY 09/16/20 Eszopiclone [Lunesta*] 3 mg PO BEDTIME PRN 09/16/20 Ibuprofen 800 mg PO Q8H PRN 09/16/20 Metoprolol Tartrate [Lopressor*] 25 mg PO BID 09/16/20 Oxybutynin Chloride [Oxybutynin Chloride ER] 10 mg PO DAILY 09/16/20 Benzonatate [Tessalon Perle*] 100 mg PO Q8H PRN #30 cap 09/25/20 Guaifenesin/Dextromethorphan [Robitussin Cough-Chest Dm Liq] 5 ml PO Q6H PRN #1 bottle 09/25/20 Nicotine [Nicoderm*] 21 mg TD DAILY #30 patch.td24 09/25/20 levoFLOXacin [Levaquin*] 500 mg PO DAILY #7 tab 09/25/20 predniSONE [Deltasone*] 20 mg PO BID #42 tab 09/25/20 New Medications: predniSONE [Deltasone*] 20 mg PO BID #42 tab levoFLOXacin [Levaquin*] 500 mg PO DAILY #7 tab Nicotine [Nicoderm*] 21 mg TD DAILY #30 patch.td24 Guaifenesin/Dextromethorphan [Robitussin Cough-Chest Dm Liq] 5 ml PO Q6H PRN #1 bottle PRN Reason: Cough Benzonatate [Tessalon Perle*] 100 mg PO Q8H PRN #30 cap PRN Reason: Cough Diet: AHA Activity: Fall precautions Followup: NONE,NONE [Primary Care Provider] - 1-2 Weeks Bola Arteaga MD [ACTIVE - CAN ADMIT] - (Within 2 weeks) Time spent managing pt's care (in minutes): 42
--- NOTE | 2020-09-25 20:49 | PN ---
Subjective: The patient is lying in bed. No new acute event. Chart reviewed. Objective: Vital Signs: Temperature 97, pulse 70, respirations 18, blood pressure 170/80. Lungs: Basal crackles. Heart: S1, S2. Regular. Abdomen: Soft, nontender. Bowel sounds present. Extremities: No edema. Laboratory Data: WBC 6.4. There are no new labs available from today. Assessment And Plan: Bilateral pneumonia with possible aspiration, Escherichia coli in the blood, an d currently getting Levaquin. Continue supportive care and antibiotic, total course of 2 weeks. We will follow the patient as needed. NF/MODL Voice ID: [id number] Report ID: [id number]
== END 2020-09-25 20:45 | disposition home health service (06) | DRG 871 ==
LOC: ER 07:55 → ERHOLD 11:38 → 2ND 09-22 15:51
PROVIDERS: ADMIT Hospitalist; ATTEND Internal Medicine
PROC: 5A09557 Assistance with Respiratory Ventilation, Greater than 96 Consecutive Hours, Continuous Positive Airway Pressure (ICD-10-PCS; principal; 2020-09-16)
DX: A41.51 Sepsis due to Escherichia coli [E. coli] (principal); J18.9 Pneumonia, unspecified organism; J96.01 Acute respiratory failure with hypoxia; R65.21 Severe sepsis with septic shock; G93.41 Metabolic encephalopathy; E87.2 Acidosis; J44.0 Chronic obstructive pulmonary disease with (acute) lower respiratory infection; I47.1 Supraventricular tachycardia; E44.0 Moderate protein-calorie malnutrition; D61.818 Other pancytopenia; G89.29 Other chronic pain; M54.9 Dorsalgia, unspecified; I10 Essential (primary) hypertension; F10.10 Alcohol abuse, uncomplicated; R79.89 Other specified abnormal findings of blood chemistry; Z88.1 Allergy status to other antibiotic agents; Z90.49 Acquired absence of other specified parts of digestive tract; Z68.21 Body mass index [BMI] 21.0-21.9, adult; Z79.52 Long term (current) use of systemic steroids; Z90.710 Acquired absence of both cervix and uterus; Z79.899 Other long term (current) drug therapy; Z20.822 Contact with and (suspected) exposure to COVID-19
CPT/HCPCS: 0240U; 36415; 51702; 70450; 71045; 71275; 74018; 74177; 80048; 80053; 80076; 80202; 80307; 80329; 81003; 81015; 81025; 82140; 82550; 82805; 82947; 83605; 83690; 83735; 84100; 84132; 84145; 84484; 85025; 85610; 85730; 87040; 87077; 87086; 87088; 87186; 87205; 93005; 93306; 94002; 94003; 94640; 94660; 94760; 96365; 96367; 96375; 97116; 97161; 97530; 99285; J0153; J0692; J1650; J1940; J2185; J2405; J2543; J2930; J3370; J3411; J3475; J3480; J7030; J7040; J7050; Q9967

== ENCOUNTER 2020-10-01 09:59 | Emergency (ER) | payer OTHER ==
--- OUTSIDE RECORDS SUMMARY | 2020-10-01 10:25 | XMS REPORT | Clinical Summary ---
:1965 Author Organization [facility] Address [address] [place] [address] Care Team Providers Name Role Phone Unavailable [...] 17 yrs) 05/28/2020 Results Not on fileafter 10/01/2019 Insurance Payer Benefit Plan / Subscriber ID Effective Dates Phone Addre ss Type Group [employer] S[employer]F-PAY [id number] [phone] [id number] JOE SELF-PAY UNSCREENED t [address] [place] [address]
--- OUTSIDE RECORDS SUMMARY | 2020-10-01 10:26 | XMS REPORT | Clinical Summary ---
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
--- OUTSIDE RECORDS SUMMARY | 2020-10-01 10:27 | XMS REPORT | Continuity of Care Document ---
:1965 Author Organization [facility] Information [place] Care Team Providers Name Role Phone [facility] [employer] Unavailable Un available Problems Problem Status Onset Classification Date Comments Sourc e Date Reported DX: RENAL ANGIOGRAM Active 014 [facility] BOWEL OBSTRUCTION Active 014 [facility] 795.79 V82.2 724.2 Active [facility] 719.43 726.31 001 [facility] Crohn's disease Resolved Problem 02/07/2015 [facility] (disorder) Patience Miguel, [facility] Hypercholesterolemia Active Problem 02/07/2015 [facility] Hypertensive disorder, Active Problem 02/07/2015 OPID systemic arterial Ka ty, (disorder) [facility] Sleep apnea (finding) Active Problem 02/07/2015 [facility] INTESTINAL OBSTRUCT Active NOS [facility] Medications Medication Details Route Status Patient Ordering Order Source Instructions Provider Date Ativan Notes: (Same Inactive as: Ativan) 2013 [facility] Acetaminophen Notes: Do not Inactive exceed 4 2014 [facility] gm/day. [facility] (Same as: Tylenol) rOPINIRole 1 mg 1 mg = 1 tab, Active oral tablet PO, Daily, 0 2013 [facility] l Refill(s) [facility] Klor-Con 10 10 mEq, PO, Active Daily, 0 2013 [facility] Hydrochlorothiazide 1 tab, PO, Active 05/20/ M H 12.5 MG / Losartan Daily, # 30 [facility] Potassium 50 MG tab, 0 [facility] Oral Tablet Refill(s) aspirin 81 mg, PO, Active Daily 2013 [facility] aripiprazole 15 MG 15 mg = 1 Active Oral Tablet tab, PO, 2013 [facility] [Abilify] Daily [facility] Clonidine PO, Bedtime Active 2013 [facility] Ibuprofen 800 mg, PO, Active 09 BID 2013 [facility] Miralax Notes: Inactive Dissolve in 8 2013 [facility] oz of water or juice. (Same as: Miralax) Dulcolax Laxative Notes: (Same Inactive As: Dulcolax, 2013 [facility] Bisco-Lax) Sertraline Notes: (Same No Longer as: Zoloft) Active 2013 [facility] Methocarbamol Notes: (Same No Longer as:Robaxin) Active 2013 [facility] aripiprazole Notes: No Longer Non-Formulary Active 2013 [facility] Drug. (Same as: Abilify) Entocort EC 9 mg, Route: No Longer PO, Drug Active 2013 [facility] form: ERCAP, Daily, Dosing Weight 71.818, kg, Start date: 01/01/14 9:00:00, Duration: 30 day, Stop date: 01/30/14 9:00:00 Budesonide Notes: (Same No Longer As: Entocort Active 2013 [facility] EC or Budesonide 3 mg EC / ERC) "Do Not Crush" Protonix Notes: Tablet No Longer should not be Active 2013 [facility] chewed or crushed. (Same as: Protonix) Dicyclomine Notes: (Same No Longer as: Bentyl) Active 2013 [facility] Trazodone Notes: (Same No Longer Hydrochloride 100 As: Desyrel) Active 2013 [facility] Oral Tablet Zocor Notes: (Same No Longer as: Zocor) Active 2013 [facility] Ditropan XL Notes: (Same No Longer as: Ditropan Active 2013 [facility] XL) "Do Not Crush" Pamelor Notes: (Same No Longer as:Pamelor, Active 2013 [facility] Aventyl) metoprolol tartrate Notes: (Same No Longer 01/01 as: Active 2013 [facility] Lopressor) Pentasa Notes: (Same No Longer as: Pentasa) Active 2013 [facility] Do not open capsule. "Do Not Crush" Ketorolac 4 days. Inactive [facility] 15 [facility] Nicotine Notes: [...] Active oral tablet tab, PO, BID, 2013 [facility] ast # 28 tab, 0 Refill(s) mercaptopurine [...] Sodium Bicarbonate 0 Refill(s) Active H 2013 [facility] methocarbamol 750 750 mg = 1 Active mg oral tablet tab, PO, 2013eas t Daily, # 60 tab, 0 Refill(s) Omeprazole 40 MG 40 mg = 1 Active Enteric Coated cap, PO, 2013[facility] t Capsule [Prilosec] Daily, # 30 cap, 0 Refill(s) Morphine Notes: (Same No Longer as:MORPhine Active 2013 [facility] Sulfate) Zofran Notes: (Same No Longer as: Zofran) Active 2013 [facility] Lovenox Notes: (Same No Longer as: Lovenox) Active 2013 [facility] normal saline 0.9% 1,000 mL, No Longer 12/30/ H IV 1,000 mL Rate: 100 Active 2013 [facility] ml/hr, Infuse over: 10 hr, Route: IV, [...] PANEL BUN 8 7 - 22 05/19 [facility] CHEM PANEL Glucose Lvl 91 70 - 99 05/19 <sup>2</sup>Int erpretive Data: [facility] range values reflect the clinical guidelines
of the [place] [employer]. CHEM PANEL CO2 29 24 - 32 05/19 [facility] CHEM PANEL AGAP 6.7 10.0 - 05/19 MH 20.0 /2013 [facility] CHEM PANEL eGFR 86 05/19 <sup>1</sup>Res ult Comment: [facility] The eGFR is City calculated using the [...] Creatinine 0.8 0.5 - 1.4 05/19 Lvl [facility] CHEM PANEL Chloride Lvl 104 95 - 109 05/19 [facility] CHEM PANEL Potassium 3.7 3.5 - 5.1 05/19 Lvl [facility] CHEM PANEL Sodium Lvl 136 135 - 145 05/19 [facility] CHEM PANEL Calcium Lvl 9.7 8.5 - 10.5 05/19 [facility] HEMATOLOGY MCV 101.6 80.0 - 05/19 MH 98.0 /2013 [facility] HEMATOLOGY MCH 35.5 27.0 - 05/19 MH 31.0 [facility] HEMATOLOGY Hgb 13.3 12.0 - 05/19 MH 16.0 [facility] HEMATOLOGY Hct 37.9 36.0 - 05/19 MH 48.0 /2013 [facility] HEMATOLOGY RBC 3.73 4.20 - 05/19 MH 5.40 /2013 [facility] HEMATOLOGY WBC 6.1 3.7 - 10.4 05/19 [facility] HEMATOLOGY MPV 8.0 7.4 - 10.4 05/19 [facility] HEMATOLOGY RDW 17.2 11.5 - 05/19 MH 14.5 /2013 [facility] HEMATOLOGY Platelet 223 133 - 450 05/19 [facility] HEMATOLOGY MCHC 35.0 32.0 - 05/19 MH 36.0 /2014 [facility] HEMATOLOGY INR 0.93 0.85 - 05/19 <sup>3</sup>Int 1.17 erpretive Data: [facility] RANGES FOR PROTIME INR:
2.0-3.0 for most medical and surgical thromboembolic states.
2.5-3.5 for artificial heart valves and recurrent embolism.
< br/>INR SHOULD BE USED ONLY FOR PATIENTS ON STABLE ANTICOAGULANT THERAPY. HEMATOLOGY PT 12.4 12.0 - 05/19 MH 14.7 [facility] CHEM PANEL Magnesium 2.0 1.8 - 2.4 01/01 Lvl [facility] CHEM PANEL eGFR 113 01/01 <sup>1</sup>Res ult Comment: [facility] The eGFR is calculated using the CKD-EPI [...] PANEL BUN 4 7 - 22 01/01 [facility] CHEM PANEL Potassium 3.8 3.5 - 5.1 01/01 Lvl [facility] CHEM PANEL Creatinine 0.5 0.5 - 1.4 01/01 Lv [facility] CHEM PANEL Glucose Lvl 94 70 - 99 01/01 <sup>3</sup>Int M H /2013 erpretive Data: [facility] [facility] [place] reference range values reflect the clinical guidelines
of the [place] [employer]. CHEM PANEL Sodium Lvl 142 135 - 145 01/01 [facility] CHEM PANEL Calcium Lvl 8.7 8.5 - 10.5 05/07 /2013 [facility] CHEM PANEL Chloride Lvl 105 95 - 109 05/ /2013 [facility] CHEM PANEL CO2 30 24 - 32 05/ /2013 [facility] CHEM PANEL AGAP 10.8 10.0 - 05/07 MH 20.0 /2013 [facility] HEMATOLOGY WBC 4.4 3.7 - 10.4 05/ /2013 [facility] HEMATOLOGY RBC 3.80 4.20 - 05/ MH 5.40 /2013 [facility] HEMATOLOGY MCH 31.1 27.0 - 05/ MH 31.0 /2013 [facility] HEMATOLOGY Hgb 11.8 12.0 - 05/ MH 16.0 /2013 [facility] HEMATOLOGY Hct 34.5 36.0 - 05/ MH 48.0 /2013 [facility] HEMATOLOGY MCV 90.6 81.0 - 05 99.0 /2013 [facility] HEMATOLOGY RDW 16.3 11.5 - 05/ MH 14.5 /2013 [facility] HEMATOLOGY MCHC 34.3 32.0 - 05/ 36.0 /2013 [facility] HEMATOLOGY Platelet 167 133 - 450 05/ /2013 [facility] HEMATOLOGY MPV 7.9 7.4 - 10.4 05/ /2013 [facility] HEMATOLOGY Eosinophils 1.6 0.0 - 4.0 05/07 MH /2013 [facility] HEMATOLOGY Basophils 0.2 0.0 - 1.0 05/07 MH /2013 [facility] HEMATOLOGY Segs-Bands # 2.6 1.5 - 8.1 05/ /2013 [facility] HEMATOLOGY Monocytes 7.4 2.0 - 12.0 05/07 MH /2013 [facility] HEMATOLOGY Lymphocytes 1.3 1.0 - 5.5 05/07 MH # /2014 [facility] HEMATOLOGY Monocytes # 0.3 0.0 - 0.8 05/07 MH /2013 [facility] HEMATOLOGY Eosinophils 0.1 0.0 - 0.5 05/07 MH # /2014 [facility] HEMATOLOGY Basophils # 0.0 0.0 - 0.2 05/ MH /2013 [facility] HEMATOLOGY Lymphocytes 30.7 20.0 - 05/07 MH 40.0 /2013 [facility] HEMATOLOGY Segs 60.1 45.0 - 05/07 75.0 /2013 [facility] CHEM PANEL Magnesium 1.8 1.8 - 2.4 05/05 Lvl /2014 [facility] CHEM PANEL Phosphorus 2.6 2.5 - 4.5 05/ /2013 [facility] CHEM PANEL Globulin 2.8 2.0 - 4.0 05/ MH /2013 [facility] CHEM PANEL A/G Ratio 1.2 0.7 - 1.6 05/ MH /2013 [facility] CHEM PANEL B/C Ratio 10 6 - 25 05/ MH /2013 [facility] CHEM PANEL AGAP 6.9 10.0 - 05/05 MH 20.0 /2013 [facility] CHEM PANEL eGFR 101 05/05 <sup>2</sup>Res MH /2013 ult Comment: [facility] The eGFR is calculated using the CKD-EPI [...] 05 <sup>4</sup>Int M H /2013 [facility] reference range values reflect the clinical guidelines
of the [place] [employer]. CHEM PANEL Potassium 3.9 3.5 - 5.1 05/ MH Lvl [facility] CHEM PANEL Sodium Lvl 141 135 - 145 / [facility] CHEM PANEL Creatinine 0.7 0.5 - 1.4 05/05 MH Lvl /2013 [facility] CHEM PANEL BUN 7 7 - 22 05/ MH [facility] CHEM PANEL Bili Total 0.3 0.2 - 1.3 05/ MH [facility] CHEM PANEL Alk Phos 71 39 - 136 05/ [facility] CHEM PANEL AST 21 0 - 37 05/05 MH [facility] CHEM PANEL ALT 20 0 - 65 05/ MH [facility] CHEM PANEL Total 6.1 6.4 - 8.4 05/ MH [facility] CHEM PANEL CO2 33 24 - 32 05/ [facility] CHEM PANEL Albumin Lvl 3.3 3.5 - 5.0 05/ /2013 [facility] CHEM PANEL Calcium Lvl 8.4 8.5 - 10.5 05/ [facility] CHEM PANEL Chloride Lvl 105 95 - 109 05/ [facility] HEMATOLOGY Basophils # 0.0 0.0 - 0.2 05/ /2013 [facility] HEMATOLOGY Segs 63.5 45.0 - 05/05 75.0 /2013 [facility] HEMATOLOGY Monocytes # 0.3 0.0 - 0.8 05/05 [facility] HEMATOLOGY Basophils 0.2 0.0 - 1.0 05/ /2013 [facility] HEMATOLOGY Lymphocytes 1.5 1.0 - 5.5 05/05 # /2013 [facility] HEMATOLOGY Segs-Bands # 3.3 1.5 - 8.1 05/ [facility] HEMATOLOGY Eosinophils 0.1 0.0 - 0.5 05/ # /2013 [facility] HEMATOLOGY Lymphocytes 28.9 20.0 - 05/05 40.0 /2013 [facility] HEMATOLOGY Monocytes 6.2 2.0 - 12.0 05/ [facility] HEMATOLOGY Eosinophils 1.2 0.0 - 4.0 05/ /2013 [facility] HEMATOLOGY MCHC 34.3 32.0 - 05/05 36.0 /2013 [facility] HEMATOLOGY RDW 16.5 11.5 - 05/05 14.5 /2013 [facility] MCH 31.5 27.0 - 05/05 31.0 /2013 [facility] HEMATOLOGY MCV 91.9 81.0 - 05/ 99.0 /2013 [facility] HEMATOLOGY Platelet 177 133 - 450 05 [facility] HEMATOLOGY MPV 7.9 7.4 - 10.4 05/ [facility] RBC 3.91 4.20 - 05/05 MH 5.40 /2014 [facility] HEMATOLOGY Hct 35.9 36.0 - 05/05 48.0 /2013 [facility] HEMATOLOGY Hgb 12.3 12.0 - 05/05 16.0 /2013 [facility] WBC 5.1 3.7 - 10.4 05 [facility] Pathology Reports No Data Provided for This [...] No evidence of elbow joint effusion. 01/05/2015 [facility] Bilateral DX Right elbow 2 views: No acut e osseous injury or arthritis identified. No joint effusion identified. IMPRESSION: 1. Unremarkable exam. Sacroiliac joints SACROILIAC JOINT SERIES 01/05/2015 [facility] series DX CLINICAL HISTORY: Low back pain. COMPARISON IMAGING: None. FINDINGS: Three views were submitted f or evaluation. No fracture, dislocation, or radiopaque foreign body is seen. There is no evidence of an inflammatory or degenerative arthritis. Soft tissues are unremarkable. IMPRESSION: No significant abnormality. Chest 1view STUDY: Chest one view. 05/20/2014 [facility] COMPARISON: None HISTORY: Hypertension. FINDINGS: The lungs [...] pneumoperitoneum. There are no other changes. 01/01/2014 [facility] SL:13 Consultation Notes No Data Provided for This Section Discharge Summaries No Data Provided for This Section History and Physicals No Data Provided for This Section Vital Signs Vital Sign Value Date Comments Source Weight 70.455 05/16/2014 [facility] BMI Calculated 27.51 05/16/2014 [facility] it Height 160.02 cm 05/16/2014 [facility] Respitory Rate 16 01/02/2014 [facility] Heart Rate 69 01/02/2014 [facility] Temperature Oral (F) 98.4 F 01/02/2014 [place] Diastolic (mm Hg) 95 01/02/[address] Systolic (mm Hg) 174 01/02/2014 [place] Temperature Oral (F) 98.2 F [facility]02[facility] 62 01/02/2014 [facility] Respitory Rate 16 01/02/2014 [place] Systolic (mm Hg) 173 01/02/2014 [place] Diastolic (mm Hg) 67 01/02/[address] Diastolic (mm Hg) 92 01/02/[address] Systolic (mm Hg) 150 01/02/2014 [place] Respitory Rate 16 01/02/2014 [facility] Temperature Oral (F) 98.5 F 01/02/2014 [place] Heart Rate 69 01/02/2014 [facility] Weight 71.818 12/30/2013 [facility] Height 162.56 cm 12/30/2013 [facility] BMI Calculated 27.18 12/30/2013 [facility] Weight 71.818 12/30/2013 [facility] BMI Calculated 27.18 12/30/2013 [facility] Height 162.56 cm 12/30/2013 [facility] Weight 71.818 12/30/2013 [facility] BMI Calculated 27.18 12/30/2013 [facility] Height 162.56 cm 12/30/2013 [facility] Encounters Location Location Encounter Encounter Reason Attending ADM DC Stat us Source Details Type Number For Provider Date Date Visit [facility] [id number] Rivera 12/30 01/03 [facility] 5 [facility] Bedded [id number] Larry 05/20 05/20 [facility] 0 [facility] orial [facility] Outpatient [id number] Julita 01/05 01/06 [facility] 1 Silvano-Fu Mau sai [facility] Outpt Diag [id number] Julian 02/04 02/05 [facility] Outpatient Services 0 Ashish [facility] Patience Procedures Procedure Code Date Perfomer Comments Source Abdominal aorta [id number] [facility] angiogram Patience,[facility] Abdominal [id number] [facility] hysterectomy Patience,[facility] [id number] [facility], [facility], bilateral [facility] Appendectomy [id number] OP[facility] Patience,[facility] [place] mesenteric [id number] OP ID angiography Patience,[facility] Suspension of [id number] OP[facility] bladder Patience,[facility] Tonsillectomy [id number] OP[facility] Patience,[facility] Bladder [id number] [facility] augmentation Assessment and Plan No Data [...] Vapor cigarette currently Social History TypeResponse 12/30/2013 [facility] Substance Abuse Use: Current. Type: Cocaine. IV [...] Vapor cigarette currently Social History TypeResponse 12/30/2013 [facility] Substance Abuse Use: Current, Type: Cocaine, [...]
--- OUTSIDE RECORDS SUMMARY | 2020-10-01 10:28 | XMS REPORT | Continuity of Care Document ---
:1965 Author Organization [facility] t Address [address] [place] [address] Care Team Providers Name Role Phone Ashish [...] Memoria ANGIOGRAM 05-06 13:44:00 l DX: 00:00: [place] RENAL 00 ANGIOGRAM Active 05/06/2014 [facility] BOWEL Diagnosis Active 2014-01-07 Mem oria OBSTRUCTIO 12-30 21:50:00 l N BOWEL 00:00: [place] OBSTRUCTIO 00 N Active 12/30/2013 [facility] 795.79 Diagnosis Active 2000-2015-01-05 Mem oria V82.2 - 10:04:00 l 724.2 795.79 00:00: [place] 719.43 V82.2 00 726.31 724.2 719.43 726.31 Active 08/28/2000 [facility] Crohn's Problem Resolve 2015-02-07 Mem oria disease d 00:48:36 l (disorder) Crohn's Her giles disease (disorder) Resolved Problem 02/07/2015 J CARLOS Morin, [place], [facility] Hyperchole Problem Active 2015-02-07 M emoria sterolemia 00:48:36 l (disorder) Moncho n Hyperchole sterolemia (disorder) Active Problem 02/07/2015 J CARLOS Morin,[facility] Hypertensi Problem Active 2015-02-07 M emoria ve 00:48:36 l disorder, [place] systemic Hypertensi arterial ve (disorder) disorder, systemic arterial (disorder) Active Problem 02/07/2015 J CARLOS Morin,[facility] Sleep Problem Active 2015-02-07 Memor ia apnea 00:48:36 l (finding) Sleep Moncho n apnea (finding) Active Problem 02/07/2015 J CARLOS Morin,[facility] INTESTINAL Diagnosis Active 2014-01-07 Memoria OBSTRUCT 21:50:00 l NOS [place] INTESTINAL OBSTRUCT NOS Active [facility] Allergies, Adverse Reactions, Alerts Allergy Allergy Status Severity Reaction(s) Onset Inactive Treating Comm ents Source Name Type Date Date Clinician Sulfa Propensi Active Magdiel (Sulfona ty to 4-15 Health mide adverse 00:00: Antibiot reaction 00 ics) s to drug Sulfa Propensi Active Sykes (Sulfona ty to 6-18 Methodi mide adverse 00:00: st Antibiot reaction 00 ics) s to drug NKFA NKFA Active Memoria l [place] sulfa sulfa Active Memoria drugs drugs l [place] Social History Social Habit Start Date Stop Date Quantity Comments Source Sex Assigned At [facility] alth Tobacco use and 2018-12-10 2018-12-10 Current user [facility] exposure 00:00:00 00:00:00 Alcohol intake 2018-12-10 2018-12-10 Ex-drinker Magdiel Savage lt 00:00:00 00:00:00 (finding) Social History 2013-12-30 2013-12-30 [facility] Aundrea glover 13:29:20 13:29:20 Smoking Status Start Date Stop Date Source Current every day smoker 2018-12-10 00:00:00 [facility] Medications Ordered Filled Start Stop Current Ordering [...] laterality Muscle unspecified Spasms. metoprolol Yes 25mg [id number] Take 25 mg Sykes tartrate 6-19 [id number] by mouth 3 Methodi (LOPRESSOR) 18:26: 3D [...] tab, PO, l tablet 12:18: Daily, 0 [place] 00 Refill(s) Klor-Con 10 Yes 10 mEq, Mem oria 05-20 PO, Daily, l 12:18: 0 [place] 00 Refill(s) Hydrochloro Yes 1 tab, PO, Memoria thiazide 05-20 Daily, # l 12.5 MG / 03:00: 30 tab, 0 Her Refill(s) Potassium 50 MG Oral Tablet aspirin Yes 81 mg, PO, Mau agata 05-19 Daily l 14:48: aripiprazol Yes 15 mg = 1 M emoria e 15 MG 05-19 tab, PO, l Oral Tablet 14:47: Daily [] Clonidine Yes PO, Memoria 05-19 Bedtime [...] ia 5-07 (Same As: l 14:00: Entocort [place] 00 EC or Budesonide 3 mg EC / ERC) "Do Not Crush" Protonix No Notes: Memoria 5-07 Tablet l 12:30: should not [place] 00 be chewed or crushed. (Same as: Protonix) Dicyclomine No Notes: Mau agata 5-07 (Same as: l 04:30: Bentyl) [place] 00 Trazodone No Notes: Memori a Hydrochlori 5-07 (Same As: l de 100 MG 02:00: Desyrel) Herm booker Oral Tablet 00 Zocor No Notes: Memoria 5-07 (Same as: l 02:00: Zocor) [place] Ditropan XL No Notes: Mau agata 5-07 (Same as: l 02:00: Ditropan [place] 00 XL) "Do Not Crush" Pamelor No Notes: Memoria 5-07 (Same l 02:00: as:Pamelor [place] 00 , Aventyl) metoprolol No Notes: Memor ia tartrate 5-07 (Same as: l 02:00: Lopressor) [place] 00 Pentasa No Notes: Memoria 5-06 (Same as: l 22:00: Pentasa) [place] Do not open capsule. "Do Not Crush" Ketorolac No 4 days. Mau agata Tromethamin 5-06 l e 15 MG/ML 12:43: [place] Injectable 00 Solution Nicotine No Notes: Memoria 5-05 (Same as: l 22:00: Habitrol) [place] "Remove old patch before applicatio n of new patch" Protonix No Notes: For Mem oria 5-05 IV push l 21:30: reconstitu [place] 00 te with 10 ml 0.9% sodium [...] 4 cap, l Extended 11:54: BID, 0 [place] Release 00 Refill(s) Capsule [Pentasa] sertraline Yes 100 mg = 1 M emoria 100 mg oral 5-05 tab, PO, l tablet 11:54: Daily, # [place] 00 30 tab, 0 Refill(s) dicyclomine Yes [...] cap, PO, l Oral 11:54: Bedtime, # [place] Capsule 00 90 cap, 0 [Pamelor] Refill(s) 24 HR Yes 10 mg = 1 Memoria Oxybutynin 5-05 tab, PO, l chloride 10 11:54: Bedtime, # [place] MG Extended 00 30 tab, 0 Release Refill(s) Tablet [Ditropan] Trazodone Yes 100 mg = 1 Me moria Hydrochlori 5-05 tab, PO, l de 100 MG 11:54: Bedtime, # Nathan rmann Oral Tablet 00 90 tab, 0 Refill(s) [...] l oral tablet 11:54: Daily, # Nathan rmann 00 60 tab, 0 Refill(s) Omeprazole Yes 40 mg = 1 Me moria 40 MG 5-05 cap, PO, l Enteric 11:54: Daily, # Moncho n Coated 00 30 cap, 0 Capsule Refill(s) [Prilosec] Morphine No Notes: Memoria 5-05 (Same l 09:01: as:MORPhin [place] 00 e Sulfate) Zofran No Notes: Memoria 5-05 (Same as: l 09:00: Zofran) [place] 00 Lovenox No Notes: Memoria 5-05 (Same as: l 09:00: Lovenox) [place] 00 normal No 1,000 mL, Memori a saline 0.9% 05 Rate: 100 l IV 1,000 mL 08:52: ml/hr, Herm booker Infuse over: 10 hr, Route: IV, Dosing Weight 71.818 kg, Total Volume: 1,000, Start date: 12/30/13 3:52:00, Duration: 30 day, Stop date: 01/29/14 3:51:00 Immunizations Ordered Immunization Filled Immunization Date Status Commen ts Source Name Name Tdap 2018-04-13 [facility] 00:00:00 [facility] Vital Signs Vital Name Observation Time Observation Value Comments Source Weight 2014-05-16 14:54:00 Morenita Agrawal BMI Calculated 2014-05-16 14:54:00 Morgan Mccann Height 2014-05-16 14:54:00 160.02 cm Morenita Agrawal Respitory Rate 2014-01-02 20:58:00 Memori al [place] Heart Rate 2014-01-02 20:58:00 [facility] [place] Temperature Oral (F) 2014-01-02 20:58:00 98.4 F [facility] [place] Diastolic (mm Hg) 2014-01-02 20:58:00 Mem orial [place] Systolic (mm Hg) 2014-01-02 20:58:00 Mau rial [place] Temperature Oral (F) 2014-01-02 16:23:00 98.2 F [facility] [place] Heart Rate 2014-01-02 16:23:00 [facility] [place] Respitory Rate 2014-01-02 16:23:00 Memori al [place] Systolic (mm Hg) 2014-01-02 16:23:00 Mau rial [place] Diastolic (mm Hg) 2014-01-02 16:23:00 Mem orial [place] Diastolic (mm Hg) 2014-01-02 12:20:00 Mem orial [place] Systolic (mm Hg) 2014-01-02 12:20:00 Mau rial [place] Respitory Rate 2014-01-02 12:20:00 Memori al [place] Temperature Oral (F) 2014-01-02 12:20:00 98.5 F [facility] [place] Heart Rate 2014-01-02 12:20:00 [facility] [place] Weight 2013-12-30 08:54:00 [facility] [place] Height 2013-12-30 08:54:00 162.56 cm [facility] [place] BMI Calculated 2013-12-30 08:54:00 Memori al [place] Weight 2013-12-30 08:52:00 [facility] [place] BMI Calculated 2013-12-30 08:52:00 Memori al [place] Height 2013-12-30 08:52:00 162.56 cm [facility] [place] Weight 2013-12-30 08:40:00 [facility] [place] BMI Calculated 2013-12-30 08:40:00 Memori al [place] Height 2013-12-30 08:40:00 162.56 cm [facility] [place] Procedures Procedure Date / Time Performed Performing Clinician [facility] rudi Abdominal aorta angiogram [facility] [place] Abdominal hysterectomy [facility] Angiography of renal [facility] arteries, bilateral Appendectomy [facility] angiography Suspension of bladder [facility]omy [facility] Bladder augmentation [facility] Plan of Care Planned Activity Planned Date Details Comments Source Future Scheduled 2020-05-28 IMM Influenza [facility] 00:00:00 Seasonal Oct to October (>/= 19 yrs) [code = IMM Influenza Seasonal May to October (>/= 19 yrs)] Future Scheduled 2020-03-28 INFLUENZA VACCINE [place] [facility] 00:00:00 [code = INFLUENZA VACCINE] Future Scheduled 2017-07-28 BREAST CANCER [facility]ist Test 00:00:00 SCREENING [code = BREAST CANCER SCREENING] Future Scheduled 2013 COLONOSCOPY SCREENING [place] [facility] 00:00:00 [code = COLONOSCOPY SCREENING] Future Scheduled 2013 SHINGLES VACCINES [place] [facility] 00:00:00 (#1) [code = SHINGLES VACCINES (#1)] Future Scheduled 2013 Screening for [facility] 00:00:00 malignant neoplasm of colon (procedure) [code = 330616305] Future Scheduled 2003 Breast Cancer Scrn [facility] Test 00:00:00 (Yearly) [code = Breast Cancer Scrn (Yearly)] Future Scheduled 1993 Screening for Magdiel [facility] Test 00:00:00 malignant neoplasm of cervix (procedure) [code = 495822655] Future Scheduled 1993 Screening for [facility] 00:00:00 malignant neoplasm of cervix (procedure) [code = 943913787] Future Scheduled 1984-02-27 Screening for [facility]odist Test 00:00:00 malignant neoplasm of cervix (procedure) [code = 846911907] Future Scheduled 1981 Hepatitis C screening [place] [facility] Test 00:00:00 (procedure) [code = 554290286] Future Scheduled 1979 COVID-19 VACCINE (1 [place] [facility] Test 00:00:00 of 2) [code = COVID-19 VACCINE (1 of 2)] Encounters Start End Encounter Admission Attending Care Care Encounter Source Date/Time Date/Time Type Type Clinicians Facility Department ID 2020-07-02 2020-07-02 Emergency GENEVA Chao [id number] 14:38:00 16:16:00 Elier Chris [id number] Ling [id number] [place] [id number] 2020-04-29 2020-04-29 Emergency Craft, [facility] [id number] 12:18:00 15:08:00 Zoraida Chris [id number] [place] [id number] [place] [id number] 2020-03-17 2020-03-17 Emergency , [facility] [id number] 11:37:56 13:51:00 Elier Chris [id number] [place] [id number] [place] [id number] 2020-03-17 2020-03-17 Orders Doctor LUCIANO [id number] 00:00:00 00:00:00 Only Unassigned, JUANCARLOS [id number] [place] [facility] [id number] 2018-12-10 2018-12-10 Outpatient [facility] [id number] Magdiel 16:03:58 16:03:58 Health 2018-12-10 2018-12-10 Emergency [facility] [id number] Magdiel 11:20:39 11:20:39 Health 2017-09-01 2017-09-01 Emergency [facility] [id number] Magdiel 10:29:00 10:29:00 [facility] 2015-02-04 2015-02-04 Outpatient INES Hinojosa [id number] 08:00:00 23:59:00 Julian Zheng 00 2015-01-05 2015-01-05 Outpatient Marilee CHAOCN [id number] 10:04:00 23:59:00 jono, 31 Julita Sales 2014-05-20 2014-05-20 Outpatient INES Francis [id number] 06:14:00 14:30:00 Larry Woodson 00 2013-12-30 2014-01-02 Outpatient INES Condon [id number] 02:50:00 22:00:00 Rivera 25 Results Test Description Test Time Test Comments Results Result Comments Source CHEM PANEL 2014-05-19 8 [facility] [place] 14:26:00 CHEM PANEL 2014-05-19 91 [facility] [place] 14:26:00 CHEM PANEL 2014-05-19 29 [...] code = MCH) 35.5 pg 27.0-31.0 Memorial ZgrouvxBTGHZHYZZO5622-35-59 14:26:0013.3[facility]ann[facility]OLOGY 2014-05-19 14:26:0037.9[facility] RavwgtvLKINWLCXZE1778-04-91 14:26:003.73[facility] RsctjrgMGIOBSUULF5719-58-90 14:26:006.1[facility] TpiapmnJLMSIMHZOG2811-79-79 14:26:008.0[facility] YffnkrmWZQZOBAOJK1740-31-67 14:26:0017.2[facility] [place] STSLCNGCYO8723-88-25 14:26:70058Nuhhvhtr XpuofagPBPSJNPIXN2779-07-50 14:26:00 35.0[facility] EbwibgsMRNWGSJWYQ1874-19-51 14:26:000.93[facility]annHEMATOLOGY 2014-05-19 14:26:00 Test Item Value Reference Range Interpretation Comments PT (test code = PT) 12.4 s 12.0-14.7 [facility]annCHEM PPPAD1972-86-76 09:42:002.0[facility] HermannCHEM PANEL 2014-01-01 09:42:94098Riizvhrf HermannCHEM ERMTA4875-22-36 09:42:004[facility] HermannCHEM RRNOZ2912-82-48 09:42:003.8[facility]annCHEM LNABB2519-59-14 09:42:000.5[facility] HermannCHEM VASTL3543-07-81 09:42:0094[facility] HermannCHEM JUTNY4825-93-17 09:42:93937Hbwdryng HermannCHEM EADBB0276-48-54 09:42:008.7 [facility]annCHE[facility] IDXSA0572-29-33 09:42:41035Fokblzwm HermannCHEM PANEL 2014-01-01 09:42:0030[facility] HermannCHEM CZCGB6070-03-53 09:42:0010.8[facility] PqemauzBWPETSKWPN2168-66-50 09:42:004.4[facility] HbmpwhqLOOAGNONVO6686-12-37 09:42:003.80[facility] OinbisyWSHNOBCTFJ0850-96-49 09:42:00 Test Item Value Reference Range Interpretation Comments MCH (test code = MCH) 31.1 pg 27.0-31.0 Memorial JderrkbZKLLJDXREO5412-46-70 09:42:0011.8[facility] HermannHEMATOLOGY 2014-01-01 09:42:0034.5[facility] VedzdfvIAFDJETUNS6311-72-89 09:42:0090.6[facility] PfkmtglAVLKMULIXN8143-39-26 09:42:0016.3[facility] KzwbpsnWGQANAROGP3968-48-07 09:42:0034.3[facility] LendjlaRAYCCUXLPV3887-15-85 09:42:57454Ofznwstu [place] GAKJRHJRZP2731-36-11 09:42:007.9[facility] UpidlxdGLNNKORHYW6376-27-53 09:42:001.6 Memorial AajakjgAUWTVMYTDG7929-54-09 09:42:000.2[facility] HermannHEMATOLOGY 2014-01-01 09:42:002.6[facility] CkdbtnjXZSVDPFTAP5346-33-32 09:42:007.4[facility] JanzfrpYTLAWLRJFO5720-50-76 09:42:001.3[facility] BmmegrmKXHIJWPOPC6468-46-70 09:42:000.3[facility] OyfbpyaAHGIMMFGXV2466-59-66 09:42:000.1[facility] [place] LQKEXMACDO0948-04-85 09:42:000.0[facility] YpuhvdnYVLYQXCLLV6657-10-55 09:42:00 30.7[facility] VjfymjeEFJMDWBYSZ8744-05-33 09:42:0060.1[facility] HermannCHEM PANEL 2013-12-30 12:13:001.8[facility] HermannCHEM XSMCH2908-20-96 12:13:002.6[facility] HermannCHEM ALDYL5415-94-58 12:13:002.8[facility] HermannCHEM DTTME5685-51-96 12:13:001.2[facility] HermannCHEM QHMQK9929-80-98 12:13:0010[facility] HermannCHEM JSJBF1147-19-21 12:13:006.9[facility] HermannCHEM HGJXB5640-20-09 12:13:33213 [facility]annCHEM JDYVN0775-12-56 12:13:0084[facility] HermannCHEM PANEL 2013-12-30 12:13:003.9[facility] HermannCHEM TWYEW4108-71-39 12:13:46008Xogiyrjr HermannCHEM AUAHM5998-64-98 12:13:000.7[facility] HermannCHEM HMQPR5191-61-46 12:13:007[facility] HermannCHEM RMLXZ7068-46-47 12:13:000.3[facility] HermannCHEM LLMIK1690-77-12 12:13:0071[facility] HermannCHEM PXOWD9011-61-71 12:13:0021 [facility]annCHEM KLUZE2146-21-78 12:13:0020[facility] HermannCHEM PANEL 2013-12-30 12:13:006.1[facility] HermannCHEM PIMVE0650-38-82 12:13:0033[facility] HermannCHEM SXCJE5379-50-79 12:13:003.3[facility] HermannCHEM UNTCW6734-04-63 12:13:008.4[facility] HermannCHEM WEHFD9179-03-82 12:13:26198Eyemvgck [place] GKHTBMBUVB2034-80-54 12:13:000.0[facility] UvvzhxvFMUXGAVWBI9004-32-93 12:13:00 63.5Memorial FgtlwncGMOHPSPGOI7407-57-85 12:13:000.3[facility] HermannHEMATOLOGY 2013-12-30 12:13:000.2[facility] PbyhuwjDUZUVXLHFY4336-59-78 12:13:001.5[facility] YipxaclMYRVGLTIJA1865-07-54 12:13:003.3[facility] YaopnywUAFHGPKUYR4018-71-62 12:13:000.1[facility] WbfsicnVAPSSDORSD8343-71-16 12:13:0028.9[facility] [place] HVINJPCEJA7696-53-28 12:13:006.2[facility] YwsjugfTNTQDMRVTJ7647-12-79 12:13:001.2 Memorial WxfqcbrWJPVLREWGN8097-46-70 12:13:0034.3[facility] HermannHEMATOLOGY 2013-12-30 12:13:0016.5[facility] AtqzafrWYAPRJJYBU0220-01-08 12:13:00 Test Item Value Reference Range Interpretation Comments MCH (test code = MCH) 31.5 pg 27.0-31.0 Memorial OijpqavTUZTFHPAVX1893-54-11 12:13:0091.9[facility] HermannHEMATOLOGY 2013-12-30 12:13:83881Vtihlijp WaunjtbHXQADSGGKR1264-83-92 12:13:007.9[facility] ZpuxokjOPTLRMBKXU4147-62-57 12:13:003.91[facility] ZkdlmymMMLLGGOQNV4221-32-08 12:13:0035.9[facility] QlrmynsDHTMYUOECY8953-08-27 12:13:0012.3[facility] [place] WKHTYRXIEG3887-46-14 12:13:005.1[facility] [place]
[2020-10-01] MEDS ORDERED: LEVALBUTEROL 1.25 MG/3 ML NEB ONE (13:55)
[2020-10-01] MEDS ORDERED: METHYLPREDNISOLONE 40 MG INJ ONE (13:56)
[2020-10-01 14:26] LABS: Absolute Lymphocytes (CBC) 1.7 K/uL (0.7-4.9); Basophils % 0.9 % (0-1.3); Hematocrit 40.2 % (36.0-45.0); Lymphocytes % 19.9 % (15.3-44.8); MPV 8.7 fL (7.6-11.3)
[2020-10-01 14:28] LABS: BUN Blood Urea Nitrogen 7 mg/dL (7-18); Bicarbonate 27 mmol/L (21-32); Glucose Level 96 mg/dL (74-106); Potassium 3.5 mmol/L (3.5-5.1); Sodium Level 136 mmol/L (136-145)
[2020-10-01] MEDS ORDERED: IBUPROFEN 400 MG TAB ONE (14:29)
[2020-10-01] MEDS ORDERED: IBUPROFEN 200 MG TAB PO ONE (14:29)
--- NOTE | 2020-10-01 14:32 | RAD REPORT ---
EXAM DESCRIPTION: RAD - Chest Single View - 10/01/2020 2:16 pm CLINICAL HISTORY: Cough;Congestion Chest pain. COMPARISON: Chest Single View dated 09/23/2020; Chest Single View dated 09/21/2020; Chest Single View dated 09/21/2020; Abdomen 1 View (KUB) dated 09/20/2020 FINDINGS: Portable technique limits examination quality. Right upper lobe pulmonary infiltrate has moderately improved. Mild infiltrate persists in the region . Mild diffuse emphysema is present. The heart is normal in size.
[2020-10-01] MEDS ORDERED: ALPRAZOLAM 1 MG TABLET ONE (15:20)
--- NOTE | 2020-10-01 15:34 | ER ---
Nurse's Notes [facility] Name: Tita Elizabeth Age: 55 yrs Sex: Female : 1965 Arrival Date: 10/01/2020 Time: 10:01 Bed 28 Private MD: Diagnosis: Dyspnea;Viral pneumonia, unspecified-Persistent but improving Presentation: 10/01 10:14 Chief complaint: Patient states: Fatigue since getting released from our hospital 5-6 sv days ago. States her fever is 101 at home, and still has coughing fits. + nausea, little diarrhea. Not sleeping well. Coronavirus screen: Client denies travel out of the [place] in the last 14 days. congestion, cough unrelated to allergies, fatigue, fever, shortness of breath, Client presents with at least one sign or symptom that may indicate coronavirus-19. Standard/surgical mask placed on the client. The client reports previous COVID testing was negative. Ebola Screen: Patient denies travel to an Ebola-affected area in the 21 days before illness onset. Initial Sepsis Screen: Does the patient meet any 2 criteria? No. Patient's initial sepsis screen is negative. Does the patient have a suspected source of infection? No. Patient's initial sepsis screen is negative. Risk Assessment: Do you want to hurt yourself or someone else? Patient reports no desire to harm self or others. Onset of symptoms. 10:14 Method Of Arrival: Wheelchair sv 10:14 Acuity: JAY 3 sv Historical: - Allergies: 10:13 Sulfa (Sulfonamide Antibiotics); sv - PMHx: 10:13 Arthritis; Hypertension; lyme disease; sv - PSHx: 10:13 Bladder sling; Appendectomy; Hysterectomy; sv - Immunization history:: Flu vaccine is not up to date. - Social history:: Smoking status: Patient reports the use of cigarette tobacco products, smokes one pack cigarettes per day. Screenin:21 Abuse screen: Denies threats or abuse. Denies injuries from another. Nutritional ca1 screening: No deficits noted. Tuberculosis screening: No symptoms or risk factors identified. Fall Risk IV access (20 points). Assessment: 12:21 General: Appears in no apparent distress. comfortable, Behavior is calm, cooperative, ca1 appropriate for age. Pain: Complains of pain in face, scalp and anterior aspect of right lateral abdomen Pain currently is 8 out of 10 on a pain scale. Pain began 2-3 days ago. Is intermittent. Neuro: Level of Consciousness is awake, alert, obeys commands, Oriented to person, place, time, situation. Cardiovascular: Heart tones S1 S2 present Capillary refill < 3 seconds Patient's skin is warm and dry. Respiratory: Airway is patent Respiratory effort is even, unlabored, Respiratory pattern is regular, symmetrical, Breath sounds are clear bilaterally. Respiratory: Reports cough that is. GI: Abdomen is flat, non-distended, Bowel sounds present X 4 quads. Abd is soft and non tender X 4 quads. : No signs and/or symptoms were reported regarding the genitourinary system. EENT: No signs and/or symptoms were reported regarding the EENT system. Derm: Skin is intact, is healthy with good turgor, Skin is pink, warm \T\ dry. Musculoskeletal: Circulation, motion, and sensation intact. Capillary refill < 3 seconds. 13:15 Reassessment: Patient appears in no apparent distress at this time. Patient and/or ca1 family updated on plan of care and expected duration. Pain level reassessed. Patient is alert, oriented x 3, equal unlabored respirations, skin warm/dry/pink. 14:14 Reassessment: Patient appears in no apparent distress at this time. Patient and/or ca1 family updated on plan of care and expected duration. Pain level reassessed. Patient is alert, oriented x 3, equal unlabored respirations, skin warm/dry/pink. 15:06 Reassessment: Patient appears in no apparent distress at this time. Patient is alert, ca1 oriented x 3, equal unlabored respirations, skin warm/dry/pink. 15:47 Reassessment: Patient appears in no apparent distress at this time. Patient is alert, ca1 oriented x 3, equal unlabored respirations, skin warm/dry/pink. Patient states feeling better. Patient states symptoms have improved. Vital Signs: 10:14 BP 143 / 85; Pulse 81; Resp 20; Temp 98.9; Pulse Ox 97% ; Weight 56.7 kg; Height 5 ft. sv 3 in. (160.02 cm); Pain 10/10; 12:21 BP 128 / 71; Pulse 85; Resp 16 S; Pulse Ox 96% on R/A; ca1 13:17 BP 133 / 86; Pulse 75; Resp 16 S; Pulse Ox 97% on R/A; ca1 14:14 BP 129 / 74; Pulse 100; Resp 18 S; Pulse Ox 95% on R/A; ca1 15:25 BP 131 / 75; Pulse 100; Resp 18 S; Pulse Ox 96% on R/A; ca1 10:14 Body Mass Index 22.14 (56.70 kg, 160.02 cm) sv ED Course: 10:01 Patient arrived in ED. as 10:13 Arm band placed on. sv 10:17 Triage completed. sv 12:14 Melisa Morocho, DALJIT is Primary Nurse. ca1 12:15 Santiago Wang MD is Attending Physician. kdr 12:21 Patient has correct armband on for positive identification. Placed in gown. Bed in low ca1 position. Call light in reach. Side rails up X2. Pulse ox on. NIBP on. Warm blanket given. 12:21 No provider procedures requiring assistance completed. ca1 14:08 Initial lab(s) drawn, by me, sent to lab. First set of blood cultures drawn by me. ca1 14:10 Inserted saline lock: 20 gauge in left antecubital area, using aseptic technique. Blood ca1 collected. 14:15 CXR XRAY In Process Unspecified. EDMS 14:39 Blood Culture Adult (2) Sent. sv 14:39 Chem 7 Sent. sv 14:39 CBC with Diff Sent. sv 14:52 Second set of blood cultures drawn by me. ca1 15:47 IV discontinued, intact, bleeding controlled, No redness/swelling at site. Pressure ca1 dressing applied. Administered Medications: 13:43 Drug: Xopenex (3) 1.25 mg Route: Inhalation; ca1 14:10 Drug: SOLU-Medrol 80 mg Route: IVP; Site: left antecubital; ca1 15:00 Follow up: Response: No adverse reaction; Marked relief of symptoms ca1 14:14 Drug: Ibuprofen 600 mg Route: PO; ca1 15:00 Follow up: Response: No adverse reaction; Pain is decreased ca1 15:04 Drug: XANax Tablet 1 mg Route: PO; ca1 15:40 Follow up: Response: No adverse reaction; Marked relief of symptoms; Anxiety decreased ca1 Outcome: 15:34 Discharge ordered by . kdr 15:47 Discharged to home via wheelchair. ca1 15:47 Condition: stable 15:47 Discharge instructions given to patient, Instructed on discharge instructions, follow up and referral plans. medication usage, Demonstrated understanding of instructions, follow-up care, medications, Prescriptions given X 2. 15:48 Patient left the ED. ca1 Signatures: Dispatcher [employer] Fatou Cooper, RN RN sv Santiago Wang MD MD kdr Martinez, Amelia as Acpatricia, DALJIT Vincent RN ca1 Corrections: (The following items were deleted from the chart) 18:06 16:00 Response: No adverse reaction; Marked relief of symptoms; Anxiety decreased ca1 ca1
--- NOTE | 2020-10-01 15:35 | EDPHYS ---
Physician Documentation [facility] Name: Tita Elizabeth Age: 55 yrs Sex: Female : 1965 Arrival Date: 10/01/2020 Time: 10:01 Bed 28 Private MD: ED Physician Santiago Wang HPI: 10/01 17:19 This 55 yrs old Female presents to ER via Wheelchair with complaints of kdr Fatigue. 17:19 The patient was discharged from this facilty about five days ago. Since, she has kdr continued to have SOB with intermittent fever and worsening fatigue. She alert and oriented and does not appear in any acute distress though does appear generally uncomfortable. Onset: The symptoms/episode began/occurred 5 day(s) ago. Severity of symptoms: At their worst the symptoms were mild in the emergency department the symptoms are unchanged. The patient has experienced similar episodes in the past, This is an ongoing problem. The patient has been recently been admitted at [facility], was discharged last week. Historical: - Allergies: 10:13 Sulfa (Sulfonamide Antibiotics); sv - PMHx: 10:13 Arthritis; Hypertension; lyme disease; sv - PSHx: 10:13 Bladder sling; Appendectomy; Hysterectomy; sv - Immunization history:: Flu vaccine is not up to date. - Social history:: Smoking status: Patient reports the use of cigarette tobacco products, smokes one pack cigarettes per day. ROS: 17:19 Constitutional: Negative for fever, chills, and weight loss, Eyes: Negative for injury, kdr pain, redness, and discharge, Neck: Negative for injury, pain, and swelling, Cardiovascular: Negative for chest pain, palpitations, and edema, Abdomen/GI: Negative for abdominal pain, nausea, vomiting, diarrhea, and constipation, Back: Negative for injury and pain, : Negative for injury, bleeding, discharge, and swelling, MS/Extremity: Negative for injury and deformity, Skin: Negative for injury, rash, and discoloration, Neuro: Negative for headache, weakness, numbness, tingling, and seizure activity. Psych: Negative for depression, anxiety, suicide ideation, homicidal ideation, and hallucinations, Allergy/Immunology: Negative for hives, rash, and allergies, Endocrine: Negative for neck swelling, polydipsia, polyuria, polyphagia, and marked weight changes, Hematologic/Lymphatic: Negative for swollen nodes, abnormal bleeding, and unusual bruising. 17:19 Respiratory: Positive for cough, with no reported sputum, dyspnea on exertion, shortness of breath, at rest. Negative for hemoptysis, orthopnea, pleurisy, sputum production. Exam: 17:19 Constitutional: This is a well developed, well nourished patient who is awake, alert, kdr and in no acute distress. Head/Face: Normocephalic, atraumatic. Eyes: Pupils equal round and reactive to light, extra-ocular motions intact. Lids and lashes normal. Conjunctiva and sclera are non-icteric and not injected. Cornea within normal limits. Periorbital areas with no swelling, redness, or edema. Neck: Trachea midline, no thyromegaly or masses palpated, and no cervical lymphadenopathy. Supple, full range of motion without nuchal rigidity, or vertebral point tenderness. No Meningismus. Chest/axilla: Normal chest wall appearance and motion. Nontender with no deformity. No lesions are appreciated. Cardiovascular: Regular rate and rhythm with a normal S1 and S2. No gallops, murmurs, or rubs. Normal PMI, no JVD. No pulse deficits. Abdomen/GI: Soft, non-tender, with normal bowel sounds. No distension or tympany. No guarding or rebound. No evidence of tenderness throughout. Back: No spinal tenderness. No costovertebral tenderness. Full range of motion. Skin: Warm, dry with normal turgor. Normal color with no rashes, no lesions, and no evidence of cellulitis. MS/ Extremity: Pulses equal, no cyanosis. Neurovascular intact. Full, normal range of motion. Neuro: Awake and alert, GCS 15, oriented to person, place, time, and situation. Cranial nerves II-XII grossly intact. Motor strength 5/5 in all extremities. Sensory grossly intact. Cerebellar exam normal. Normal gait. Psych: Awake, alert, with orientation to person, place and time. Behavior, mood, and affect are within normal limits. 17:19 Respiratory: the patient does not display signs of respiratory distress, Respirations: normal, Breath sounds: rales, that are mild, are scattered. Vital Signs: 10:14 BP 143 / 85; Pulse 81; Resp 20; Temp 98.9; Pulse Ox 97% ; Weight 56.7 kg; Height 5 ft. sv 3 in. (160.02 cm); Pain 10/10; 12:21 BP 128 / 71; Pulse 85; Resp 16 S; Pulse Ox 96% on R/A; ca1 13:17 BP 133 / 86; Pulse 75; Resp 16 S; Pulse Ox 97% on R/A; ca1 14:14 BP 129 / 74; Pulse 100; Resp 18 S; Pulse Ox 95% on R/A; ca1 15:25 BP 131 / 75; Pulse 100; Resp 18 S; Pulse Ox 96% on R/A; ca1 10:14 Body Mass Index 22.14 (56.70 kg, 160.02 cm) sv MDM: 15:34 Patient medically screened. kdr 17:19 Data reviewed: vital signs, nurses notes, lab test result(s), EKG, radiologic studies. kdr Counseling: I had a detailed discussion with the patient and/or guardian regarding: the historical points, exam findings, and any diagnostic results supporting the discharge/admit diagnosis, lab results, radiology results, the need for outpatient follow up. Special discussion: I discussed with the patient/guardian in detail that at this point there is no indication for admission to the hospital. It is understood, however, that if the symptoms persist or worsen the patient needs to return immediately for re-evaluation. 10/01 13:41 Order name: CBC with Diff kdr 10/01 13:41 Order name: Chem 7 kdr 10/01 13:41 Order name: Blood Culture Adult (2) kdr 10/01 13:41 Order name: CBC with Automated Diff EDMS 10/01 13:41 Order name: Basic Metabolic Panel; Complete Time: 15:01 EDMS 10/01 13:41 Order name: Blood Culture EDMS 10/01 13:41 Order name: CXR XRAY; Complete Time: 15:01 kdr Administered Medications: 13:43 Drug: Xopenex (3) 1.25 mg Route: Inhalation; ca1 14:10 Drug: SOLU-Medrol 80 mg Route: IVP; Site: left antecubital; ca1 15:00 Follow up: Response: No adverse reaction; Marked relief of symptoms ca1 14:14 Drug: Ibuprofen 600 mg Route: PO; ca1 15:00 Follow up: Response: No adverse reaction; Pain is decreased ca1 15:04 Drug: XANax Tablet 1 mg Route: PO; ca1 15:40 Follow up: Response: No adverse reaction; Marked relief of symptoms; Anxiety decreased ca1 Disposition: 10/01/20 15:34 Discharged to Home. Impression: Dyspnea, Viral pneumonia, unspecified - Persistent but improving. - Condition is Stable. - Discharge Instructions: Community-Acquired Pneumonia, Adult. - Prescriptions for Xanax 1 mg Oral Tablet - take 1 tablet by ORAL route At bedtime As needed; 10 tablet. Albuterol Sulfate 2.5 mg /3 mL (0.083 %) Inhalation Solution for Nebulization - inhale 1 unit by NEBULIZATION route every 8 hours As needed; 2 box. - Medication Reconciliation Form, Thank You Letter form. - Follow up: Private Physician; When: 2 - 3 days; Reason: If symptoms return, Further diagnostic work-up, Recheck today's complaints, Continuance of care, Re-evaluation by your physician. - Problem is an ongoing problem. - Symptoms have improved. - Notes: Continue on steroids as directed Signatures: Dispatcher [employer] Fatou Cooper RN RN Santiago Wang MD MD [facility] Melisa Morocho RN RN ca1 Corrections: (The following items were deleted from the chart) 15:48 15:34 10/01/2020 15:34 Discharged to Home. Impression: Dyspnea; Viral pneumonia, ca1 unspecified - Persistent but improving. Condition is Stable. Forms are Medication Reconciliation Form, Thank You Letter, Antibiotic Education, Prescription Opioid Use. Follow up: Private Physician; When: 2 - 3 days; Reason: If symptoms return, Further diagnostic work-up, Recheck today's complaints, Continuance of care, Re-evaluation by your physician. Problem is an ongoing problem. Symptoms have improved. kdr
[2020-10-01 15:55] VITALS: TEMP 98.9
[2020-10-01 16:00] VITALS: BP 131/75; O2SAT 96
[2020-10-01 20:25] LABS: Blood Morphology Comment NOT SEEN (NOT SEEN); Platelet Estimate INCR; White Blood Cell Scan OK (OK)
== END 2020-10-01 15:48 | disposition home or self-care (01) ==
LOC: ER 09:59
DX: J12.9 Viral pneumonia, unspecified (principal); I10 Essential (primary) hypertension; R53.83 Other fatigue; F17.210 Nicotine dependence, cigarettes, uncomplicated; Z88.2 Allergy status to sulfonamides
CPT/HCPCS: 87040 ×2; 85025; 80048; 36415; 71045; 96374; 99284; J2920

== ENCOUNTER 2020-10-07 17:46 | Emergency (ER) | payer OTHER ==
--- NOTE | 2020-10-07 19:16 | RAD REPORT ---
EXAM DESCRIPTION: RAD - Foot Right 3 View - 10/07/2020 6:44 pm CLINICAL HISTORY: Right foot pain status post injury FINDINGS: Bones are osteoporotic. No fracture is seen. Lateral subluxation of first proximal phalanx is present.
--- NOTE | 2020-10-07 19:20 | ER ---
Nurse's Notes [facility] Name: Tita Elizabeth Age: 55 yrs Sex: Female : 1965 Arrival Date: 10/07/2020 Time: 17:48 Bed 25 Private MD: Diagnosis: Pain in right foot;Subluxation of first proximal phalanx Presentation: 10/07 17:58 Chief complaint: Patient states: had a small portable speaker that was on top of her sv dresser fall on top of her right foot in between the great and 2nd toe. Has hx of bunionectomy to damon feet 4 years ago. Care prior to arrival: None. 17:58 Acuity: JAY 4 sv 17:58 Method Of Arrival: Wheelchair sv 18:00 Coronavirus screen: Client denies travel out of the [place] in the last 14 days. At this sv time, the client does not indicate any symptoms associated with coronavirus-19. Ebola Screen: No symptoms or risks identified at this time. Risk Assessment: Do you want to hurt yourself or someone else? Patient reports no desire to harm self or others. Onset of symptoms was October 07, 2020. 18:00 Initial Sepsis Screen: Does the patient meet any 2 criteria? No. Patient's initial sv sepsis screen is negative. Does the patient have a suspected source of infection? No. Patient's initial sepsis screen is negative. 18:04 Mechanism of Injury: No Mechanism of Injury. Trauma event details: Injury occurred in [facility], Injury occurred: at home. Injury occurred: October 07, 2020. Trauma Activation: Not Applicable Physician: ED Physician; Name: ; Notified At: ; Arrived At: Physician: General Surgeon; Name: ; Notified At: ; Arrived At: Physician: Radiology; Name: ; Notified At: ; Arrived At: Physician: Respiratory; Name: ; Notified At: ; Arrived At: Physician: Lab; Name: ; Notified At: ; Arrived At: Historical: - Allergies: 18:00 Sulfa (Sulfonamide Antibiotics); sv - PMHx: 18:00 Arthritis; Hypertension; lyme disease; sv - PSHx: 18:00 Bladder sling; Appendectomy; Hysterectomy; Bunionectomy; sv - Immunization history:: Adult Immunizations up to date, Last tetanus immunization: greater than 5 years. - Social history:: Smoking status: Patient reports the use of cigarette tobacco products, smokes one-half pack cigarettes per day. Screenin:28 Abuse screen: Denies threats or abuse. Nutritional screening: No deficits noted. lc1 Tuberculosis screening: No symptoms or risk factors identified. Fall Risk None identified. Primary Survey: 17:58 NO uncontrolled hemorrhage observed. A: The patient is alert. Airway: patent, No sv supplemental oxygen in use on arrival. Oral cavity: clear. Breathing/Chest: Respiratory pattern: regular, Respiratory effort: spontaneous, unlabored, Chest inspection: symmetrical rise and fall of the chest. Circulation: Skin color: pink, Skin temperature: warm, dry. Disability Alert. Exposure/Environment: All clothing and personal items were removed. Forensic evidence collection is not deemed to be indicated at this time. Items placed in patient belonging bag. There is no evidence of uncontrolled external bleeding. 19:42 Reassessment Airway Airway Patent Breathing/Chest Respiratory pattern Regular. lc1 Assessment: 18:04 Reassessment: Received VO from Dr Wang for a foot xray. sv 19:28 General: Appears in no apparent distress. comfortable, Behavior is calm, cooperative. lc1 Pain: Complains of pain in right foot Pain does not radiate. Pain currently is 10 out of 10 on a pain scale. Quality of pain is described as sharp, Aggravated by increased activity. Neuro: No deficits noted. Cardiovascular: No deficits noted. Respiratory: No deficits noted. GI: No deficits noted. : No deficits noted. EENT: No deficits noted. Derm: No deficits noted. Musculoskeletal: No deficits noted. Injury Description: patient states she dropped a speaker on her foot. Vital Signs: 18:00 BP 161 / 95; Pulse 82; Resp 22; Temp 98.8(TE); Pulse Ox 99% on R/A; Weight 54.43 kg; sv Height 5 ft. 3 in. (160.02 cm); Pain 10/10; 19:28 BP 150 / 84; Pulse 83; Resp 18; Temp 98.6; lc1 18:00 Body Mass Index 21.26 (54.43 kg, 160.02 cm) sv [place] Coma Score: 18:00 Eye Response: spontaneous(4). Verbal Response: oriented(5). Motor Response: obeys sv commands(6). Total: 15. Trauma Score (Adult): 18:00 Eye Response: spontaneous(1); Verbal Response: oriented(1); Motor Response: obeys sv commands(2); Systolic BP: > 89 mm Hg(4); Respiratory Rate: 10 to 29 per min(4); [place] Score: 15; Trauma Score: 12 ED Course: 17:48 Patient arrived in ED. ag5 17:59 Triage completed. sv 18:00 Arm band placed on. sv 18:43 Foot Right 3 View XRAY In Process Unspecified. EDMS 18:51 Renetta Orantes FNP-C [facility] kb 18:51 Santiago Wang MD is Attending Physician. kb 19:15 Sybil Crowley is Primary Nurse. lc1 19:28 Patient has correct armband on for positive identification. Bed in low position. Side lc1 rails up X 1. 19:28 No provider procedures requiring assistance completed. Patient did not have IV access lc1 during this emergency room visit. 19:43 Patient maintains SpO2 saturation greater than 95% on room air. lc1 19:43 Thermoregulation: warm blanket given to patient. lc1 Administered Medications: 19:22 Drug: [place] (7.5 mg-325 mg) 1 tabs Route: PO; lc1 19:33 Follow up: Response: No adverse reaction lc1 Intake: 18:00 PO: 0ml; Total: 0ml. sv Output: 18:00 Urine: 0ml; Total: 0ml. sv Outcome: 19:20 Discharge ordered by MD. kb 19:42 Discharged to home lc1 19:42 Condition: good 19:42 Discharge instructions given to patient, Instructed on discharge instructions, follow up and referral plans. Demonstrated understanding of instructions, follow-up care, medications, Prescriptions given X 1. 19:43 Patient's length of stay was not longer than 2 hours. lc1 19:44 Patient left the ED. lc1 Signatures: Dispatcher [employer] EDOR Renetta Orantes FNP-C FNP-Ckb Verde, Stephanie RN RN Sybil Crowley lc1 Jairo Mayfield ag5 Corrections: (The following items were deleted from the chart) 18:02 18:00 54.43 kg; Height 5 ft. 3 in.; BMI: 21.2; sv sv 18:02 18:00 Pulse 82bpm; Resp 22bpm; Pulse Ox 99%; Temp 98.8F; 54.43 kg; Height 5 ft. 3 in.; sv BMI: 21.2; Pain 10/10; sv 19:32 19:28 Pain: Complains of pain in left medial malleolus Pain does not radiate. Pain lc1 currently is 5 out of 10 on a pain scale. Quality of pain is described as sharp, Aggravated by increased activity, lc1 19:32 19:28 Neuro: No deficits noted. lc1 lc1 19:33 19:28 BP 139 / 94; Pulse 96bpm; Resp 18bpm; Temp 98.4F; lc1 lc1 19:36 19:28 Injury Description: patient states she twisted her ankle lc1 lc1
--- NOTE | 2020-10-07 19:20 | EDPHYS ---
Physician Documentation [facility] Name: Tita Elizabeth Age: 55 yrs Sex: Female : 1965 Arrival Date: 10/07/2020 Time: 17:48 Bed 25 Private MD: ED Physician Santiago Wang HPI: 10/07 20:00 This 55 yrs old Female presents to ER via Wheelchair with complaints of Foot kb Injury. 20:00 The patient presents with pain, that is acute, tenderness. The complaints affect the kb right second toe and right first toe. Context: The problem was sustained at home, resulted from a heavy object falling, speaker, the patient can fully bear weight, the patient is able to ambulate. Onset: The symptoms/episode began/occurred today. Modifying factors: The symptoms are alleviated by nothing, the symptoms are aggravated by nothing. Associated signs and symptoms: The patient has no apparent associated signs or symptoms. Severity of symptoms: At their worst the symptoms were moderate, in the emergency department the symptoms are unchanged. The patient has not experienced similar symptoms in the past. The patient has not recently seen a physician. Historical: - Allergies: 18:00 Sulfa (Sulfonamide Antibiotics); sv - PMHx: 18:00 Arthritis; Hypertension; lyme disease; sv - PSHx: 18:00 Bladder sling; Appendectomy; Hysterectomy; Bunionectomy; sv - Immunization history:: Adult Immunizations up to date, Last tetanus immunization: greater than 5 years. - Social history:: Smoking status: Patient reports the use of cigarette tobacco products, smokes one-half pack cigarettes per day. ROS: 20:00 Constitutional: Negative for fever, chills, and weight loss, Cardiovascular: Negative kb for chest pain, palpitations, and edema, Respiratory: Negative for shortness of breath, cough, wheezing, and pleuritic chest pain, Abdomen/GI: Negative for abdominal pain, nausea, vomiting, diarrhea, and constipation, Skin: Negative for injury, rash, and discoloration, Neuro: Negative for headache, weakness, numbness, tingling, and seizure. 20:00 MS/extremity: Positive for pain, of the right second toe and right first toe. Exam: 19:58 Constitutional: This is a well developed, well nourished patient who is awake, alert, kb and in no acute distress. Head/Face: Normocephalic, atraumatic. Skin: Warm, dry with normal turgor. Normal color with no rashes, no lesions, and no evidence of cellulitis. Neuro: Awake and alert, GCS 15, oriented to person, place, time, and situation. Cranial nerves II-XII grossly intact. Motor strength 5/5 in all extremities. Sensory grossly intact. Cerebellar exam normal. Normal gait. 19:58 Musculoskeletal/extremity: Extremities: grossly normal except: noted in the right first toe and right second toe: pain, ROM: no acute changes, Circulation is intact in all extremities. Sensation intact. Weight bearing: able to fully bear weight. Vital Signs: 18:00 BP 161 / 95; Pulse 82; Resp 22; Temp 98.8(TE); Pulse Ox 99% on R/A; Weight 54.43 kg; sv Height 5 ft. 3 in. (160.02 cm); Pain 10/10; 19:28 BP 150 / 84; Pulse 83; Resp 18; Temp 98.6; lc1 18:00 Body Mass Index 21.26 (54.43 kg, 160.02 cm) sv [place] Coma Score: 18:00 Eye Response: spontaneous(4). Verbal Response: oriented(5). Motor Response: obeys sv commands(6). Total: 15. Trauma Score (Adult): 18:00 Eye Response: spontaneous(1); Verbal Response: oriented(1); Motor Response: obeys sv commands(2); Systolic BP: > 89 mm Hg(4); Respiratory Rate: 10 to 29 per min(4); [place] Score: 15; Trauma Score: 12 MDM: 18:52 Patient medically screened. kb 19:58 Data reviewed: vital signs, nurses notes. Data interpreted: Pulse oximetry: on room air kb is 99 %. Interpretation: normal. Counseling: I had a detailed discussion with the patient and/or guardian regarding: the historical points, exam findings, and any diagnostic results supporting the discharge/admit diagnosis, radiology results, the need for outpatient follow up, a family practitioner, to return to the emergency department if symptoms worsen or persist or if there are any questions or concerns that arise at home. 10/07 18:04 Order name: Foot Right 3 View XRAY; Complete Time: 19:19 sv Administered Medications: 19:22 Drug: [place] (7.5 mg-325 mg) 1 tabs Route: PO; lc1 19:33 Follow up: Response: No adverse reaction lc1 Disposition: 10/08 06:44 Co-signature as Attending Physician, Santiago Wang MD I agree with the assessment and kdr plan of care. Disposition: 10/07/20 19:20 Discharged to Home. Impression: Pain in right foot, Subluxation of first proximal phalanx. - Condition is Stable. - Discharge Instructions: Musculoskeletal Pain. - Prescriptions for Ibuprofen 600 mg Oral Tablet - take 1 tablet by ORAL route every 6 hours As needed take with food; 30 tablet. - Medication Reconciliation Form, Thank You Letter, Antibiotic Education, Prescription Opioid Use form. - Follow up: Emergency Department; When: As needed; Reason: Worsening of condition. Follow up: Private Physician; When: 2 - 3 days; Reason: Recheck today's complaints, Continuance of care, Re-evaluation by your physician. Signatures: Dispatcher [employer] EDRenetta Teran, ROMEO-Marce WALTERS-Fatou Espinosa RN RN Santiago Menon MD MD [facility] Sybil Crowley 1 Corrections: (The following items were deleted from the chart) 10/07 19:21 19:20 10/07/2020 19:20 Discharged to Home. Impression: Pain in right foot. Condition is kb Stable. Forms are Medication Reconciliation Form, Thank You Letter, Antibiotic Education, Prescription Opioid Use. Follow up: Emergency Department; When: As needed; Reason: Worsening of condition. Follow up: Private Physician; When: 2 - 3 days; Reason: Recheck today's complaints, Continuance of care, Re-evaluation by your physician. kb 19:44 19:21 10/07/2020 19:20 Discharged to Home. Impression: Pain in right foot; Subluxation lc1 of first proximal phalanx. Condition is Stable. Forms are Medication Reconciliation Form, Thank You Letter, Antibiotic Education, Prescription Opioid Use. Follow up: Emergency Department; When: As needed; Reason: Worsening of condition. Follow up: Private Physician; When: 2 - 3 days; Reason: Recheck today's complaints, Continuance of care, Re-evaluation by your physician. kb
[2020-10-07] MEDS ORDERED: HYDROCODONE/APAP 7.5/325 MG TAB ONE (19:32)
[2020-10-07 20:06] VITALS: O2SAT 99
[2020-10-07 20:07] VITALS: BP 150/84; TEMP 98.6
--- OUTSIDE RECORDS SUMMARY | 2020-10-07 20:22 | XMS REPORT | Clinical Summary ---
:1965 Author Organization [facility] Address [address] [place] [address] Care Team Providers Name Role Phone Gaurav [...] INFLUENZA VACCINE 03/28/2020 Results Not on fileafter 10/07/2019 Advance Directives For more information, please contact: [phone] Type Date Recorded Patient Rehabilitation Assistant Explanati on Advance Directives, 05/21/2020 5:46 PM Living Will and Medical Power of Operations Officer [employer]float Advance Directives, 02/12/2018 10:04 AM Living Will and Medical Power of Operations Officer [employer] Advance Directives, 04/13/2018 9:21 PM Living Will and Medical Power of Operations Officer Afloat
--- OUTSIDE RECORDS SUMMARY | 2020-10-07 20:22 | XMS REPORT | Clinical Summary ---
:1965 Author Organization [facility] Address [address] [place] [address] Care Team Providers Name Role Phone Unavailable [...] 17 yrs) 05/28/2020 Results Not on fileafter 10/07/2019 Insurance Payer Benefit Plan / Subscriber ID Effective Dates Phone Addre ss Type Group [employer] SELF-PAY [id number] [phone] [id number] SELF-PAY [address]CREENED [address] [place] [address]
--- OUTSIDE RECORDS SUMMARY | 2020-10-07 20:24 | XMS REPORT | Continuity of Care Document ---
:1965 Author Organization [facility] Information [place] Care Team Providers Name Role Phone [facility] Pulmonx Unavailable Un available Problems Problem Status Onset Classification Date Comments Sourc e Date Reported DX: RENAL ANGIOGRAM Active 014 [facility] BOWEL OBSTRUCTION Active 014 [facility] 795.79 V82.2 724.2 Active [facility] 719.43 726.31 001 [facility] Crohn's disease Resolved Problem 02/07/2015 OPID (disorder) Patience Miguel, [facility] Hypercholesterolemia Active Problem 02/07/2015 [facility] Hypertensive disorder, Active Problem 02/07/2015 OPID systemic arterial Ka ty, (disorder) [facility] Sleep apnea (finding) Active Problem 02/07/2015 [facility] INTESTINAL OBSTRUCT Active NOS [facility] Medications Medication Details Route Status Patient Ordering Order Source Instructions Provider Date Ativan Notes: (Same Inactive as: Ativan) 2013 [facility] Acetaminophen Notes: Do not Inactive exceed 4 2013 [facility] gm/day. [facility] (Same as: Tylenol) rOPINIRole 1 mg 1 mg = 1 tab, Active oral tablet PO, Daily, [address] [facility] l Refill(s) [facility] Klor-Con 10 10 mEq, PO, Active Daily, [facility] Hydrochlorothiazide 1 tab, PO, Active 05/20/ M H 12.5 MG / Losartan Daily, # 30 [facility] Potassium 50 MG tab, 0 [facility] Oral Tablet Refill(s) aspirin 81 mg, PO, Active Daily 2013 [facility] aripiprazole 15 MG 15 mg = 1 Active Oral Tablet tab, PO, 2013 [facility] [Abilify] Daily [facility] Clonidine PO, Bedtime Active 2013 [facility] Ibuprofen 800 mg, PO, Active 09 BID 2013 [facility] Miralax Notes: Inactive Dissolve in 8 2013 [facility] oz of water or juice. (Same as: Miralax) Dulcolax Laxative Notes: (Same Inactive As: Dulcolax, 2013 [facility] Bisco-Lax) Sertraline Notes: (Same No Longer as: Zoloft) Active 2013 [facility] Methocarbamol Notes: (Same No Longer as:Robaxin) Active 2013 [facility] aripiprazole Notes: No Longer Non-Formulary Active 2013 [facility] Drug. (Same as: Abilify) Entocort EC 9 mg, Route: No Longer PO, Drug Active 2013 [facility] form: ERCAP, Daily, Dosing Weight 71.818, kg, Start date: 01/01/14 9:00:00, Duration: 30 day, Stop date: 01/30/14 9:00:00 Budesonide Notes: (Same No Longer As: Entocort Active 2013 [facility] EC or Budesonide 3 mg EC / ERC) "Do Not Crush" Protonix Notes: Tablet No Longer should not be Active 2013 [facility] chewed or crushed. (Same as: Protonix) Dicyclomine Notes: (Same No Longer as: Bentyl) Active 2013 [facility] Trazodone Notes: (Same No Longer Hydrochloride 100 As: Desyrel) Active 2013 [facility] Oral Tablet Zocor Notes: (Same No Longer as: Zocor) Active 2013 [facility] Ditropan XL Notes: (Same No Longer as: Ditropan Active 2013 [facility] XL) "Do Not Crush" Pamelor Notes: (Same No Longer as:Pamelor, Active 2013 [facility] Aventyl) metoprolol tartrate Notes: (Same No Longer 01/01 as: Active 2013 [facility] Lopressor) Pentasa Notes: (Same No Longer as: Pentasa) Active 2013 [facility] Do not open capsule. "Do Not Crush" Ketorolac 4 days. Inactive [facility]romethamine 15 [facility] Nicotine Notes: (Same [...] Active oral tablet tab, PO, BID, 2013 [facility] ast # 28 tab, 0 Refill(s) mercaptopurine [...] Sodium Bicarbonate 0 Refill(s) Active H 2013 [facility] methocarbamol 750 750 mg = 1 Active mg oral tablet tab, PO, 2013eas t Daily, # 60 tab, 0 Refill(s) Omeprazole 40 MG 40 mg = 1 Active [facility] Coated cap, PO, 2013[facility] Capsule [Prilosec] Daily, # 30 cap, 0 Refill(s) Morphine Notes: (Same No Longer as:MORPhine Active 2013 [facility] Sulfate) Zofran Notes: (Same No Longer as: Zofran) Active 2013 [facility] Lovenox Notes: (Same No Longer as: Lovenox) Active 2013 [facility] normal saline 0.9% 1,000 mL, No Longer 12/30/ H IV 1,000 mL Rate: 100 Active 2013 [facility] ml/hr, Infuse over: 10 hr, Route: IV, [...] PANEL BUN 8 7 - 22 05/19 [facility] CHEM PANEL Glucose Lvl 91 70 - 99 05/19 <sup>2</sup>Int erpretive Data: [facility] range values reflect the clinical guidelines
of the [employer]. CHEM PANEL CO2 29 24 - 32 05/19 [facility] CHEM PANEL AGAP 6.7 10.0 - 05/19 MH 20.0 /2013 [facility] CHEM PANEL eGFR 86 05/19 <sup>1</sup>Res ult Comment: [facility] The eGFR is City calculated using the [...] Creatinine 0.8 0.5 - 1.4 05/19 Lvl [facility] CHEM PANEL Chloride Lvl 104 95 - 109 05/19 [facility] CHEM PANEL Potassium 3.7 3.5 - 5.1 05/19 Lvl [facility] CHEM PANEL Sodium Lvl 136 135 - 145 05/19 [facility] CHEM PANEL Calcium Lvl 9.7 8.5 - 10.5 05/19 [facility] HEMATOLOGY MCV 101.6 80.0 - 05/19 MH 98.0 /2013 [facility] HEMATOLOGY MCH 35.5 27.0 - 05/19 MH 31.0 [facility] HEMATOLOGY Hgb 13.3 12.0 - 05/19 MH 16.0 [facility] HEMATOLOGY Hct 37.9 36.0 - 05/19 MH 48.0 /2013 [facility] HEMATOLOGY RBC 3.73 4.20 - 05/19 MH 5.40 /2013 [facility] HEMATOLOGY WBC 6.1 3.7 - 10.4 05/19 [facility] HEMATOLOGY MPV 8.0 7.4 - 10.4 05/19 [facility] HEMATOLOGY RDW 17.2 11.5 - 05/19 MH 14.5 /2013 [facility] HEMATOLOGY Platelet 223 133 - 450 05/19 [facility] HEMATOLOGY MCHC 35.0 32.0 - 05/19 MH 36.0 /2014 [facility] HEMATOLOGY INR 0.93 0.85 - 05/19 <sup>3</sup>Int 1.17 erpretive Data: [facility] RANGES FOR PROTIME INR:
2.0-3.0 for most medical and surgical thromboembolic states.
2.5-3.5 for artificial heart valves and recurrent embolism.
< br/>INR SHOULD BE USED ONLY FOR PATIENTS ON STABLE ANTICOAGULANT THERAPY. HEMATOLOGY PT 12.4 12.0 - 05/19 MH 14.7 [facility] CHEM PANEL Magnesium 2.0 1.8 - 2.4 01/01 Lvl [facility] CHEM PANEL eGFR 113 01/01 <sup>1</sup>Res ult Comment: [facility] The eGFR is calculated using the CKD-EPI [...] PANEL BUN 4 7 - 22 01/01 [facility] CHEM PANEL Potassium 3.8 3.5 - 5.1 01/01 Lvl [facility] CHEM PANEL Creatinine 0.5 0.5 - 1.4 01/01 Lv [facility] CHEM PANEL Glucose Lvl 94 70 - 99 01/01 <sup>3</sup>Int M H /2013 erpretive Data: [facility] Adult reference range values reflect the clinical guidelines
of the [employer]. CHEM PANEL Sodium Lvl 142 135 - 145 01/01 [facility] CHEM PANEL Calcium Lvl 8.7 8.5 - 10.5 05/07 /2013 [facility] CHEM PANEL Chloride Lvl 105 95 - 109 05/ /2013 [facility] CHEM PANEL CO2 30 24 - 32 05/ /2013 [facility] CHEM PANEL AGAP 10.8 10.0 - 05/07 MH 20.0 /2013 [facility] HEMATOLOGY WBC 4.4 3.7 - 10.4 05/ /2013 [facility] HEMATOLOGY RBC 3.80 4.20 - 05/ MH 5.40 /2013 [facility] HEMATOLOGY MCH 31.1 27.0 - 05/ MH 31.0 /2013 [facility] HEMATOLOGY Hgb 11.8 12.0 - 05/ MH 16.0 /2013 [facility] HEMATOLOGY Hct 34.5 36.0 - 05/ MH 48.0 /2013 [facility] HEMATOLOGY MCV 90.6 81.0 - 05 99.0 /2013 [facility] HEMATOLOGY RDW 16.3 11.5 - 05/ MH 14.5 /2013 [facility] HEMATOLOGY MCHC 34.3 32.0 - 05/ 36.0 /2013 [facility] HEMATOLOGY Platelet 167 133 - 450 05/ /2013 [facility] HEMATOLOGY MPV 7.9 7.4 - 10.4 05/ /2013 [facility] HEMATOLOGY Eosinophils 1.6 0.0 - 4.0 05/07 MH /2013 [facility] HEMATOLOGY Basophils 0.2 0.0 - 1.0 05/07 MH /2013 [facility] HEMATOLOGY Segs-Bands # 2.6 1.5 - 8.1 05/ /2013 [facility] HEMATOLOGY Monocytes 7.4 2.0 - 12.0 05/07 MH /2013 [facility] HEMATOLOGY Lymphocytes 1.3 1.0 - 5.5 05/07 MH # /2014 [facility] HEMATOLOGY Monocytes # 0.3 0.0 - 0.8 05/07 MH /2013 [facility] HEMATOLOGY Eosinophils 0.1 0.0 - 0.5 05/07 MH # /2014 [facility] HEMATOLOGY Basophils # 0.0 0.0 - 0.2 05/ MH /2013 [facility] HEMATOLOGY Lymphocytes 30.7 20.0 - 05/07 MH 40.0 /2013 [facility] HEMATOLOGY Segs 60.1 45.0 - 05/07 75.0 /2013 [facility] CHEM PANEL Magnesium 1.8 1.8 - 2.4 05/05 Lvl /2014 [facility] CHEM PANEL Phosphorus 2.6 2.5 - 4.5 05/ /2013 [facility] CHEM PANEL Globulin 2.8 2.0 - 4.0 05/ MH /2013 [facility] CHEM PANEL A/G Ratio 1.2 0.7 - 1.6 05/ MH /2013 [facility] CHEM PANEL B/C Ratio 10 6 - 25 05/ MH /2013 [facility] CHEM PANEL AGAP 6.9 10.0 - 05/05 MH 20.0 /2013 [facility] CHEM PANEL eGFR 101 05/05 <sup>2</sup>Res MH /2013 ult Comment: [facility] The eGFR is calculated using the CKD-EPI [...] 05 <sup>4</sup>Int M H /2013 [facility]: [facility] reference range values reflect the clinical guidelines
of the [employer]. CHEM PANEL Potassium 3.9 3.5 - 5.1 05/ MH Lvl [facility] CHEM PANEL Sodium Lvl 141 135 - 145 / [facility] CHEM PANEL Creatinine 0.7 0.5 - 1.4 05/05 MH Lvl /2013 [facility] CHEM PANEL BUN 7 7 - 22 05/ MH [facility] CHEM PANEL Bili Total 0.3 0.2 - 1.3 05/ MH [facility] CHEM PANEL Alk Phos 71 39 - 136 05/ [facility] CHEM PANEL AST 21 0 - 37 05/05 MH [facility] CHEM PANEL ALT 20 0 - 65 05/ MH [facility] CHEM PANEL Total 6.1 6.4 - 8.4 05/ MH [facility] CHEM PANEL CO2 33 24 - 32 05/ [facility] CHEM PANEL Albumin Lvl 3.3 3.5 - 5.0 05/ /2013 [facility] CHEM PANEL Calcium Lvl 8.4 8.5 - 10.5 05/ [facility] CHEM PANEL Chloride Lvl 105 95 - 109 05/ [facility] HEMATOLOGY Basophils # 0.0 0.0 - 0.2 05/ /2013 [facility] HEMATOLOGY Segs 63.5 45.0 - 05/05 75.0 /2013 [facility] HEMATOLOGY Monocytes # 0.3 0.0 - 0.8 05/05 [facility] HEMATOLOGY Basophils 0.2 0.0 - 1.0 05/ /2013 [facility] HEMATOLOGY Lymphocytes 1.5 1.0 - 5.5 05/05 # /2013 [facility] HEMATOLOGY Segs-Bands # 3.3 1.5 - 8.1 05/ [facility] HEMATOLOGY Eosinophils 0.1 0.0 - 0.5 05/ # /2013 [facility] HEMATOLOGY Lymphocytes 28.9 20.0 - 05/05 40.0 /2013 [facility] HEMATOLOGY Monocytes 6.2 2.0 - 12.0 05/ [facility] HEMATOLOGY Eosinophils 1.2 0.0 - 4.0 05/ /2013 [facility] HEMATOLOGY MCHC 34.3 32.0 - 05/05 36.0 /2013 [facility] HEMATOLOGY RDW 16.5 11.5 - 05/05 14.5 /2013 [facility] MCH 31.5 27.0 - 05/05 31.0 /2013 [facility] HEMATOLOGY MCV 91.9 81.0 - 05/ 99.0 /2013 [facility] HEMATOLOGY Platelet 177 133 - 450 05 [facility] HEMATOLOGY MPV 7.9 7.4 - 10.4 05/ [facility] RBC 3.91 4.20 - 05/05 MH 5.40 /2014 [facility] HEMATOLOGY Hct 35.9 36.0 - 05/05 48.0 /2013 [facility] HEMATOLOGY Hgb 12.3 12.0 - 05/05 16.0 /2013 [facility] WBC 5.1 3.7 - 10.4 05 [facility] Pathology Reports No Data Provided for This [...] No evidence of elbow joint effusion. 01/05/2015 [facility] Bilateral DX Right elbow 2 views: No acut e osseous injury or arthritis identified. No joint effusion identified. IMPRESSION: 1. Unremarkable exam. Sacroiliac joints SACROILIAC JOINT SERIES 01/05/2015 [facility] series DX CLINICAL HISTORY: Low back pain. COMPARISON IMAGING: None. FINDINGS: Three views were submitted f or evaluation. No fracture, dislocation, or radiopaque foreign body is seen. There is no evidence of an inflammatory or degenerative arthritis. Soft tissues are unremarkable. IMPRESSION: No significant abnormality. Chest 1view STUDY: Chest one view. 05/20/2014 [facility] COMPARISON: None HISTORY: Hypertension. FINDINGS: The [...] pneumoperitoneum. There are no other changes. 01/01/2014 [facility] SL:[id number] Consultation Notes No Data Provided for This Section Discharge Summaries No Data Provided for This Section History and Physicals No Data Provided for This Section Vital Signs Vital Sign Value Date Comments Source Weight 70.455 05/16/2014 [facility] BMI Calculated 27.51 05/16/2014 [facility] it Height 160.02 cm 05/16/2014 [facility] y Respitory Rate 16 01/02/2014 [facility] Heart Rate 69 01/02/2014 [facility] Temperature Oral (F) 98.4 F 01/02/2014 [facility] Diastolic (mm Hg) 95 01/02/[address] Systolic (mm Hg) 174 01/02/2014 [facility] Temperature Oral (F) 98.2 F [facility]02[facility]2014 [facility] Respitory Rate 16 01/02/2014 [facility] Systolic (mm Hg) 173 01/02/2014 [facility] Diastolic (mm Hg) 67 01/02/[address] Diastolic (mm Hg) 92 01/02/[address] Systolic (mm Hg) 150 01/02/2014 [facility] [facility] Respitory Rate 16 01/02/2014 [facility] Temperature Oral (F) 98.5 F 01/02/2014 [facility] Heart Rate 69 01/02/2014 [facility] Weight 71.818 12/30/2013 [facility] Height 162.56 cm 12/30/2013 [facility] BMI Calculated 27.18 12/30/2013 [facility] Weight 71.818 12/30/2013 [facility] BMI Calculated 27.18 12/30/2013 [facility] Height 162.56 cm 12/30/2013 [facility] Weight 71.818 12/30/2013 [facility] BMI Calculated 27.18 12/30/2013 [facility] Height 162.56 cm 12/30/2013 [facility] Encounters Location Location Encounter Encounter Reason Attending ADM DC Stat us Source Details Type Number For Provider Date Date Visit [facility] [id number] [place] 12/30 01/03 [place] 5 [facility] Bedded [id number] Larry 05/20 05/20 [place] [facility] 0 [facility] [place] [facility] Outpatient [id number] Julita 01/05 01/06 [place] 1 [facility] Outpt Diag [id number] Julian 02/04 02/05 [facility] OPID Outpatient Services 0 Ashish [facility] Patience Procedures Procedure Code Date Perfomer Comments Source Abdominal aorta [id number] OPID angiogram Patience,[facility] Abdominal [id number] OPID hysterectomy Patience,[facility] [id number] [facility] arteries, Patience, bilateral [facility] Appendectomy [id number] OPID Patience,[facility] [place] mesenteric [id number] OP ID angiography Patience,[facility] Suspension of [id number] OPID bladder Patience,[facility] Tonsillectomy [id number] OPID Patience,[facility] Bladder [id number] [facility] augmentation Assessment and Plan No Data Provided [...] Vapor cigarette currently Social History TypeResponse 12/30/2013 [facility] Substance Abuse Use: Current. Type: Cocaine. IV [...] Vapor cigarette currently Social History TypeResponse 12/30/2013 [facility] Substance Abuse Use: Current, Type: Cocaine, IV [...]
--- OUTSIDE RECORDS SUMMARY | 2020-10-07 20:25 | XMS REPORT | Continuity of Care Document ---
:[address] [facility] t Address [address] [place] [address] Care Team Providers Name Role Phone Gaurav Hinojosa MD Primary Care Physician Singer SHANKAR Attending Clinician Luana HOROWITZ, R Attending Clinician Doctor Unassigned, Name Attending Clinician Unavailable Marce Hinojosa Attending Clinician Henrry Ernandez Attending Clinician Chintan Francis Attending Clinician Terminella Attending Clinician Henrry Ernandez Admitting Clinician Terminshanta Admitting Clinician Problems Condition Condition Condition Status Onset Resolution Last Treating Co mments Source Name Details Category Date Date Treatment Clinician Date Chest pain Chest pain Disease Active [place] [facility] 6-18 [facility] uncertain uncertain 00:00: st etiology etiology 00 DX: RENAL Diagnosis Active 2014-05-27 [facility]oria ANGIOGRAM 05-06 13:44:00 l DX: 00:00: [place] RENAL 00 ANGIOGRAM Active 05/06/2014 [facility] BOWEL Diagnosis Active 2014-01-07 [facility] oria OBSTRUCTIO 12-30 21:50:00 l N BOWEL 00:00: [place] OBSTRUCTIO 00 N Active 12/30/2013 [facility] 795.79 Diagnosis Active 2000-2015-01-05 Mem oria V82.2 1- 10:04:00 l 724.2 795.79 00:00: [place] 719.43 V82.2 00 726.31 724.2 719.43 726.31 Active 08/28/2000 [facility] Crohn's Problem Resolve 2015-02-07 Mem oria disease d 00:48:36 l (disorder) Crohn's Her giles disease (disorder) Resolved Problem 02/07/2015 J CARLOS Morin, [place], [facility] Hyperchole Problem Active 2015-02-07 M emoria sterolemia 00:48:36 l (disorder) Moncho n Hyperchole sterolemia (disorder) Active Problem 02/07/2015 J CARLOS Morin,[facility] Hypertensi Problem Active 2015-02-07 M emoria ve 00:48:36 l disorder, [place] systemic Hypertensi arterial ve (disorder) disorder, systemic arterial (disorder) Active Problem 02/07/2015 J CARLOS Morin,[facility] Sleep Problem Active 2015-02-07 Memor ia apnea 00:48:36 l (finding) Sleep Moncho n apnea (finding) Active Problem 02/07/2015 J CARLOS Morin,[facility] INTESTINAL Diagnosis Active 2014-01-07 Memoria OBSTRUCT 21:50:00 l NOS [place] INTESTINAL OBSTRUCT NOS Active [facility] Allergies, Adverse Reactions, Alerts Allergy Allergy Status Severity Reaction(s) Onset Inactive Treating Comm ents Source Name Type Date Date Clinician Sulfa Propensi Active Magdiel (Sulfona ty to 4-15 Health mide adverse 00:00: Antibiot reaction 00 ics) s to drug Sulfa Propensi Active [place] (Sulfona ty to 6-18 Methodi mide adverse 00:00: st Antibiot reaction 00 ics) s to drug NKFA NKFA Active Memoria l [place] sulfa sulfa Active [facility] drugs drugs l [place] Social History Social Habit Start Date Stop Date Quantity Comments Source Sex Assigned At [facility] ethodist Tobacco use and 2018-04-13 2018-04-13 Never used [facility] ethodist exposure 00:00:00 00:00:00 Alcohol intake 2018-04-13 2018-04-13 [facility]00 non-drinker of alcohol (finding) Social History 2013-12-30 2013-12-30 [facility] belen 13:29:20 13:29:20 Smoking Status Start Date Stop Date Source Current every day smoker 2018-04-13 00:00:00 Vivian [facility] Medications Ordered Filled Start Stop Current Ordering [...] H arris rine 4-15 left-sided tablet by [facility] (FLEXERIL) 00:00: low back mouth 2 10 mg 00 pain with times tablet sciatica, daily as sciatica needed for laterality Muscle unspecified Spasms. cyanocobala Yes 1{tbl} QD Take 1 Ho [...] floyd MG tablet 18:26: nightly. st 50 metoprolol Yes 25mg [id number] Take 25 mg Sykes tartrate 6-19 [id number] by mouth 3 Methodi (LOPRESSOR) 18:26: 3D (three) st 25 mg 50 times a tablet day. Note: Rx label states BID but pt takes TID. Ativan No Notes: Memoria 05-20 (Same as: l 14:26: Ativan) Acetaminoph No Notes: Do M emoria en 05-20 not exceed l 13:34: 4 gm/day. (Same as: Tylenol) rOPINIRole Yes 1 mg = 1 Mem oria 1 mg oral 05-20 tab, PO, l tablet 12:18: Daily, 0 Refill(s) Klor-Con 10 Yes 10 mEq, Mem oria - PO, Daily, l 12:18: 0 [place] 00 Refill(s) Hydrochloro Yes 1 tab, PO, [...] 5-07 (Same as: l 04:30: Bentyl) [place] Trazodone No Notes: Memori a Hydrochlori 5-07 (Same As: l de 100 MG 02:00: Desyrel) Herm booker Oral Tablet 00 Zocor No Notes: Memoria 5-07 (Same as: l 02:00: Zocor) [place] Ditropan XL No Notes: Mau agata 5-07 (Same as: l 02:00: Ditropan [place] 00 XL) "Do Not Crush" Pamelor No Notes: Memoria 5-07 (Same l 02:00: as:Pamelor [place] 00 , Aventyl) metoprolol No Notes: Memor ia tartrate 5-07 (Same as: l 02:00: Lopressor) [place] 00 Pentasa No Notes: Memoria 5-06 (Same as: l 22:00: Pentasa) [place] Do not open capsule. "Do Not Crush" Ketorolac No 4 days. Mau agata Tromethamin 5-06 l e 15 MG/ML 12:43: [place] Injectable 00 Solution Nicotine No Notes: Memoria 5-05 (Same as: l 22:00: Habitrol) S[place] "Remove old patch before applicatio n of new patch" Protonix No Notes: For Mem oria 5-05 IV push l 21:30: reconstitu Smyer 00 te with 10 ml 0.9% sodium chloride and push over 2 minutes. (Same as: Protonix) 24 HR Yes 9 mg = 3 Memoria Budesonide 5-05 cap, PO, l 3 MG 11:54: Daily, # [place] Extended 00 90 cap, 0 Release Refill(s) [...] 4 cap, l Extended 11:54: BID, 0 [place] Release 00 Refill(s) Capsule [Pentasa] sertraline Yes 100 mg = 1 M emoria 100 mg oral 5-05 tab, PO, l tablet 11:54: Daily, # [place] 00 30 tab, 0 Refill(s) dicyclomine Yes [...] cap, PO, l Oral 11:54: Bedtime, # [place] Capsule 00 90 cap, 0 [Pamelor] Refill(s) 24 HR Yes 10 mg = 1 Memoria Oxybutynin 5-05 tab, PO, l chloride 10 11:54: Bedtime, # [place] MG Extended 00 30 tab, 0 Release [...] 0 Memoria Bicarbonate 5-05 Refill(s) l 11:54: [place] 00 methocarbam Yes 750 mg = 1 [...] Memoria 5-05 (Same l 09:01: as:MORPhin [place] e Sulfate) Zofran No Notes: Memoria 5-05 (Same as: l 09:00: Zofran) [place] Lovenox No Notes: Memoria 5-05 (Same as: l 09:00: Lovenox) [place] normal No 1,000 mL, Memori a saline 0.9% 12-30 Rate: 100 l IV 1,000 mL 08:52: ml/hr, Herm booker Infuse over: 10 hr, Route: IV, Dosing Weight 71.818 kg, Total Volume: 1,000, Start date: 12/30/13 3:52:00, Duration: 30 day, Stop date: 01/29/14 3:51:00 Immunizations Ordered Immunization Filled Immunization Date Status Commen Source Name Name Tdap 2018-04-13 [facility] 00:00:00 [facility] Vital Signs Vital Name Observation Time Observation Value Comments Source Weight 2014-05-16 14:54:00 Morenita Agrawal BMI Calculated 2014-05-16 14:54:00 Morgan Mccann Height 2014-05-16 14:54:00 160.02 cm [facility] Respitory Rate 2014-01-02 20:58:00 Memori al [place] Heart Rate 2014-01-02 20:58:00 [facility] Temperature Oral (F) 2014-01-02 20:58:00 98.4 F [facility] [place] Diastolic (mm Hg) 2014-01-02 20:58:00 Mem orial [place] Systolic (mm Hg) 2014-01-02 20:58:00 Mau rial [place] Temperature Oral (F) 2014-01-02 16:23:00 98.2 F [facility] [place] Heart Rate 2014-01-02 16:23:00 [facility] [place] Respitory Rate 2014-01-02 16:23:00 Memori al [place] Systolic (mm Hg) 2014-01-02 16:23:00 Mau rial [place] Diastolic (mm Hg) 2014-01-02 16:23:00 Mem orial [place] Diastolic (mm Hg) 2014-01-02 12:20:00 Mem orial [place] Systolic (mm Hg) 2014-01-02 12:20:00 Mau rial [place] Respitory Rate 2014-01-02 12:20:00 Memori al [place] Temperature Oral (F) 2014-01-02 12:20:00 98.5 F [facility] Heart Rate 2014-01-02 12:20:00 [facility] Weight 2013-12-30 08:54:00 [facility] Height 2013-12-30 08:54:00 162.56 cm [facility] BMI Calculated 2013-12-30 08:54:00 Memori al [place] Weight 2013-12-30 08:52:00 [facility] [place] BMI Calculated 2013-12-30 08:52:00 [facility] al [place] Height 2013-12-30 08:52:00 162.56 cm [facility] [place] Weight 2013-12-30 08:40:00 [facility] BMI Calculated 2013-12-30 08:40:00 Memori al [place] Height 2013-12-30 08:40:00 162.56 cm [facility] [place] Procedures Procedure Date / Time Performed Performing Clinician [facility] e Abdominal aorta angiogram [facility] [place] Abdominal hysterectomy [facility] Angiography of renal [facility] arteries, bilateral Appendectomy [facility] mesenteric [facility] angiography Suspension of bladder [facility] Bladder [facility] [place] Plan of Care Planned Activity Planned Date Details Comments Source Future Scheduled 2020-05-28 IMM Influenza Magdiel Savage lt Test 00:00:00 Seasonal May to October (>/= 19 yrs) [code = IMM Influenza Seasonal May to October (>/= 19 yrs)] Future Scheduled 2020-03-28 INFLUENZA VACCINE [place] [facility] 00:00:00 [code = INFLUENZA VACCINE] Future Scheduled 2017-07-28 [facility] S[facility]EN[facility] [code = BREAST CANCER SCREENING] Future Scheduled 2013 COLONOSCOPY SCREENING [place] [facility] Test 00:00:00 [code = COLONOSCOPY SCREENING] Future Scheduled 2013 SHINGLES VACCINES [place] [facility] Test 00:00:00 (#1) [code = SHINGLES VACCINES (#1)] Future Scheduled 2013 Screening for Magdiel Savage [facility] Test 00:00:00 malignant neoplasm of colon (procedure) [code = 866321941] Future Scheduled 2003 Breast Cancer Scrn [facility] Test 00:00:00 (Yearly) [code = Breast Cancer Scrn (Yearly)] Future Scheduled 1993 Screening for Magdiel [facility] Test 00:00:00 malignant neoplasm of cervix (procedure) [code = 282781144] Future Scheduled 1993 Screening for Magdiel [facility] Test 00:00:00 malignant neoplasm of cervix (procedure) [code = 343091916] Future Scheduled 1984-02-27 Screening for [facility]ist Test 00:00:00 malignant neoplasm of cervix (procedure) [code = 175080942] Future Scheduled 1981 Hepatitis C screening [place] [facility] Test 00:00:00 (procedure) [code = 546254161] Future Scheduled 1979 COVID-19 VACCINE (1 [place] [facility] Test 00:00:00 of 2) [code = COVID-19 VACCINE (1 of 2)] Encounters Start End Encounter Admission Attending Care Care Encounter Source Date/Time Date/Time Type Type Clinicians Facility Department ID 2020-07-02 2020-07-02 Emergency GENEVA Chao [id number] 14:38:00 16:16:00 Elier Chris [id number] [place] [id number] [place] [id number] 2020-04-29 2020-04-29 Emergency Craft, [facility] [id number] 12:18:00 15:08:00 Zoraida Chris [id number] [place] 4.2.7.2.686 [place] [id number] 2020-03-17 2020-03-17 Emergency Chao, [facility] [id number] 11:37:56 13:51:00 Elier Chris [id number] [place] 4.2.7.2.686 [place] [id number] 2020-03-17 2020-03-17 Orders Doctor LUCIANO [id number] 00:00:00 00:00:00 Only Unassigned, JUANCARLOS 350.1.13.10 [place] [facility] [id number] [id number] 2018-12-10 2018-12-10 Outpatient [facility] [id number] [place] 16:03:58 16:03:58 Health 2018-12-10 2018-12-10 Emergency [facility] [id number] Magdiel 11:20:39 11:20:39 Health 2017-09-01 2017-09-01 Emergency [facility] [id number] Magdiel 10:29:00 10:29:00 [facility] 2015-02-04 2015-02-04 Outpatient Ashish [facility] [id number] 08:00:00 23:59:00 Julian Zheng 2015-01-05 2015-01-05 Outpatient Marilee [facility] [id number] 10:04:00 23:59:00 Rupesh de la cruz 2014-05-20 2014-05-20 Outpatient Tito [facility] [id number] 06:14:00 14:30:00 Larry Woodson 00 2013-12-30 2014-01-02 Outpatient Taurus [facility] [id number] 02:50:00 22:00:00 Rivera 25 Results Test Description Test Time Test Comments Results Result Comments Source CHEM PANEL 2014-05-19 8 Morenita celis 14:26:00 CHEM PANEL 2014-05-19 91 [facility] 14:26:00 CHEM PANEL 2014-05-19 29 [facility] 14:26:00 CHEM PANEL 2014-05-19 6.7 [facility] 14:26:00 CHEM PANEL 2014-05-19 86 [facility] 14:26:00 CHEM PANEL 2014-05-19 0.8 [facility] nn 14:26:00 CHEM PANEL 2014-05-19 104 [facility] 14:26:00 CHEM PANEL 2014-05-19 3.7 [facility] 14:26:00 CHEM PANEL 2014-05-19 136 [facility] 14:26:00 CHEM PANEL 2014-05-19 9.7 [facility] 14:26:00 HEMATOLOGY 2014-05-19 101.6 [facility] 14:26:00 HEMATOLOGY 2014-05-19 14:26:00 Test Item Value Reference Range Interpretation Comme nts MCH (test code = MCH) 35.5 pg 27.0-31.0 [facility] DrugcboHYTZYAAXLE5587-67-67 14:26:0013.3[facility]annHEMATOLOGY 2014-05-19 14:26:0037.9[facility] HfqdgrlNBTLLCLXVT1943-50-61 14:26:003.73[facility] DukxfbtAGRFJKMXMJ3780-79-78 14:26:006.1[facility] CwsigcyBRBVTGTRVO3481-21-32 14:26:008.0[facility] PphparuTQVVFZCWOU3602-41-29 14:26:0017.2[facility] [place] GKIYISPRRC9434-63-16 14:26:06565Zpmhuqqq WkkqiyjGTWPBMRXKI4308-33-33 14:26:00 35.0[facility] IkmynvaAHPPVCUTEF8931-56-53 14:26:000.93[facility] HermannHEMATOLOGY 2014-05-19 14:26:00 Test Item Value Reference Range Interpretation Comments PT (test code = PT) 12.4 s 12.0-14.7 [facility] NwczgpwGABAMGRFHL0640-68-02 09:42:003.80[facility] HermannHEMATOLOGY 2014-01-01 09:42:00 Test Item Value Reference Range Interpretation Comments MCH (test code = MCH) 31.1 pg 27.0-31.0 [facility] MbberhvOKIJKKQVXI2920-24-25 09:42:0011.8[facility] HermannHEMATOLOGY 2014-01-01 09:42:0034.5[facility] FedfyhaXUUJLTCOYY9819-89-23 09:42:0090.6[facility] HjxqqcwNLOMETRPXD3740-63-32 09:42:0016.3[facility] BipxgkhKPUAPZZHCT6021-59-55 09:42:0034.3[facility] ExbbzzmNADCLSOIBL8995-63-56 09:42:38625Gsojhahq [place] CGHREJMHWX2163-71-47 09:42:007.9[facility] CcqdnzeWFXDIAOWKU8077-46-43 09:42:001.6 Memorial UcjqwlpZUVAIJYQHH5537-86-01 09:42:000.2[facility] HermannHEMATOLOGY 2014-01-01 09:42:002.6[facility] ZdzshzzASGDEYJFJH9677-67-35 09:42:007.4[facility] WgbbfwuVQCNJNXDER9173-79-27 09:42:001.3[facility] RkuqssiAZBVSYVAKW2630-02-69 09:42:000.3[facility] YqyiyjdATLCXAMTZM0725-03-09 09:42:000.1[facility] RXZFCPEKJJ5067-76-59 09:42:000.0[facility] AhgusfhKPPSWZNSHP2709-81-32 09:42:00 30.7[facility] KuhdlrdJMLMTFNBHC0039-03-40 09:42:0060.1[facility] HermannCHEM PANEL 2014-01-01 09:42:002.0[facility] HermannCHEM KAUXB7590-29-62 09:42:77543Eycuftsw HermannCHEM FKAHK6698-20-92 09:42:004[facility] HermannCHEM GSCUE8087-46-09 09:42:003.8[facility] HermannCHEM MVXCN1662-15-55 09:42:000.5[facility] HermannCHEM LWYAF3475-50-84 09:42:0094[facility] HermannCHEM PMAFH1547-17-77 09:42:62245 [facility] HermannCHEM KVBCZ7461-85-67 09:42:008.7[facility] HermannCHEM PANEL 2014-01-01 09:42:60162Jjkkpnvk HermannCHEM XXNLT2569-97-89 09:42:0030[facility] HermannCHEM BATUO9186-69-95 09:42:0010.8[facility] EtfjqowJMYESWNQNP9824-16-42 09:42:004.4[facility] HermannCHEM WVBDG1392-93-80 12:13:001.8[facility] HermannCHEM ASJMI2470-13-19 12:13:002.6[facility] HermannCHEM BKLWN7855-62-44 12:13:002.8 [facility] HermannCHEM UXXLD4532-70-13 12:13:001.2[facility] HermannCHEM PANEL 2013-12-30 12:13:0010[facility] HermannCHEM GSSDE9717-91-95 12:13:006.9[facility] HermannCHEM QSGDQ5180-50-61 12:13:98507Npyfkvsx HermannCHEM RNEBG8115-47-87 12:13:0084[facility] HermannCHEM LMJUE5688-46-88 12:13:003.9[facility] HermannCHEM MJVTN0670-80-24 12:13:36529Pkmirzem HermannCHEM NNJHJ6109-13-58 12:13:000.7 [facility] HermannCHEM APHGH0024-28-89 12:13:007[facility] HermannCHEM PANEL 2013-12-30 12:13:000.3[facility] HermannCHEM URTAI2088-52-77 12:13:0071[facility] HermannCHEM PWBMX8898-66-41 12:13:0021[facility] HermannCHEM SMAGK0967-24-38 12:13:0020[facility] HermannCHEM ANXSK8687-02-39 12:13:006.1[facility] HermannCHEM RZSEM2970-88-68 12:13:0033[facility] HermannCHEM GTTAV2872-63-15 12:13:003.3 [facility] HermannCHEM BVAUZ5547-51-81 12:13:008.4[facility] HermannCHEM PANEL 2013-12-30 12:13:63448Xxusffub MkcyvcxUELBZFTEXS0161-67-07 12:13:000.0[facility] AhoitzdWAJPYCMZAN8696-28-46 12:13:0063.5[facility] FkktrhmHKWMLHZCOQ1409-69-88 12:13:000.3[facility] QsiaoimMBEEIDDSPX4077-70-91 12:13:000.2[facility] ARTSANPDET8884-58-50 12:13:001.5[facility] MbiavxbFGOZTDDNUR8693-32-43 12:13:003.3 Memorial AtshyqfJTOTAHHIQZ1329-76-87 12:13:000.1[facility] HermannHEMATOLOGY 2013-12-30 12:13:0028.9[facility] IrnzpaeDZYZAUBVPE5524-20-20 12:13:006.2[facility] VlpsfnjTZTKFKCFTR9274-83-38 12:13:001.2[facility] SoxmxywGDRPLVMETM2043-63-98 12:13:0034.3[facility] FjovzafFBIOFSIZFV5476-60-54 12:13:0016.5[facility] [place] LNAJWLNTVT8240-99-11 12:13:00 Test Item Value Reference Range Interpretation Comments MCH (test code = MCH) 31.5 pg 27.0-31.0 Memorial DvkyvfcOTVBRLJXWE4218-71-40 12:13:0091.9[facility] HermannHEMATOLOGY 2013-12-30 12:13:61379Lradvtwq AkxzokeMEPLAJXDLJ0401-57-80 12:13:007.9[facility] GdyivmaGQRKOHYHCS4476-23-03 12:13:003.91[facility] YlhydkxCCMRNXXMHN9899-30-02 12:13:0035.9[facility] PngopdfVUYAECEGHF8772-07-81 12:13:0012.3[facility] [place] YZQCCNYMCN2405-37-06 12:13:005.1[facility]
== END 2020-10-07 19:44 | disposition home or self-care (01) ==
LOC: ER 17:46
DX: S93.101A Unspecified subluxation of right toe(s), initial encounter (principal); W20.8XXA Other cause of strike by thrown, projected or falling object, initial encounter; Y93.89 Activity, other specified; Y92.009 Unspecified place in unspecified non-institutional (private) residence as the place of occurrence of the external cause; Z88.2 Allergy status to sulfonamides; I10 Essential (primary) hypertension; F17.210 Nicotine dependence, cigarettes, uncomplicated
CPT/HCPCS: 99284

== ENCOUNTER 2020-11-02 18:28 | Emergency (ER) | payer OTHER ==
--- OUTSIDE RECORDS SUMMARY | 2020-11-02 18:32 | XMS REPORT | Continuity of Care Document ---
:1965 Author Organization [facility] t Address [address] [place] [address] Care Team Providers Name Role Phone Chao Attending Clinician Brandon Ascencio Attending Clinician Doctor Unassigned, Name Attending Clinician Unavailable Marce Hinojosa Attending Clinician Henrry Ernandez Attending Clinician Chintan Francis Attending Clinician Terminella Attending Clinician Henrry Ernandez Admitting Clinician Terminella Admitting Clinician Problems Condition Condition Condition Status Onset Resolution Last Treating Co mments Source Name Details Category Date Date Treatment Clinician Date DX: RENAL Diagnosis Active 2014-05-27 Memoria ANGIOGRAM 05-06 13:44:00 l DX: 00:00: [employer] RENAL 00 ANGIOGRAM Active 05/06/2014 [facility] BOWEL Diagnosis Active 2014-01-07 Mem oria OBSTRUCTIO 12-30 21:50:00 l N BOWEL 00:00: [place] OBSTRUCTIO 00 N Active 12/30/2013 [facility] 795.79 Diagnosis Active 2015-01-05 Mem oria V82.2 - 10:04:00 l 724.2 795.79 00:00: [employer] 719.43 V82.2 00 726.31 724.2 719.43 726.31 Active 08/28/2000 [facility] Crohn's Problem Resolve 2015-02-07 Mem oria disease d 00:48:36 l (disorder) Crohn's [place] g[place] disease (disorder) Resolved Problem 02/07/2015 J CARLOS Morin,[facility], [facility] Hyperchole Problem Active 2015-02-07 M emoria sterolemia 00:48:36 l (disorder) Moncho n Hyperchole sterolemia (disorder) Active Problem 02/07/2015 J CARLSO Morin,[facility] Hypertensi Problem Active 2015-02-07 M emoria ve 00:48:36 l disorder, [employer] systemic Hypertensi arterial ve (disorder) disorder, systemic arterial (disorder) Active Problem 02/07/2015 J CARLOS Morin,[facility] Sleep Problem Active 2015-02-07 Memor ia apnea 00:48:36 l (finding) Sleep Moncho n apnea (finding) Active Problem 02/07/2015 J CARLOS Morin,[facility] INTESTINAL Diagnosis Active 2014-01-07 Memoria OBSTRUCT 21:50:00 l NOS [place] INTESTINAL OBSTRUCT NOS Active [facility] Allergies, Adverse Reactions, Alerts Allergy Allergy Status Severity Reaction(s) Onset Inactive Treating Comm ents Source Name Type Date Date Clinician Sulfa Propensi Active Magdiel (Sulfona ty to 4-15 Health mide adverse 00:00: Antibiot reaction 00 ics) s to drug NKFA NKFA Active Memoria l [employer] sulfa sulfa Active Memoria drugs drugs l [place] Social History Social Habit Start Date Stop Date Quantity Comments Source Sex Assigned At [facility] Tobacco use and 2018-12-10 2018-12-[address] [facility] exposure 00:00:00 00:00:00 Alcohol intake 2018-12-10 2018-12-10 Ex-drinker [facility] 00:00:00 00:00:00 (finding) Social History 2013-12-30 2013-12-30 [facility] belen 13:29:20 13:29:20 Smoking Status Start Date Stop Date Source Current every day smoker 2018-12-10 00:00:00 [facility] Medications Ordered Filled Start Stop Current Ordering Indication Dosage Frequency Signature Comments Components Source Medication Medication Date Date Medication? Clinician (SIG) Name Name gabapentin 2019- Yes Chronic 300mg Take 1 H arris (NEURONTIN) 4-15 left-sided capsule by [facility] 300 mg 00:00: low back mouth 2 capsule 00 pain with times sciatica, daily as sciatica needed for laterality Pain. unspecified cyclobenzap Yes Chronic 10mg Take 1 H arris rine 4-15 left-sided tablet by [facility] (FLEXERIL) 00:00: low back mouth 2 10 mg 00 pain with times tablet sciatica, daily as sciatica needed for laterality Muscle unspecified Spasms. Ativan No Notes: Memoria 05-20 (Same as: l 14:26: Ativan) Acetaminoph No Notes: Do M emoria en 05-20 not exceed l 13:34: 4 gm/day. (Same as: Tylenol) rOPINIRole Yes 1 mg = 1 Mem oria 1 mg oral 05-20 tab, PO, l tablet 12:18: Daily, 0 [place] 00 Refill(s) Klor-Con 10 Yes 10 mEq, Mem oria 05-20 PO, Daily, l 12:18: 0 [employer] 00 Refill(s) Hydrochloro Yes 1 tab, PO, Memoria thiazide 05-20 Daily, # l 12.5 MG / 03:00: 30 tab, 0 Her giles Refill(s) Potassium 50 MG Oral Tablet aspirin Yes 81 mg, PO, Mau agata 05-19 Daily l 14:48: aripiprazol Yes 15 mg = 1 M emoria e 15 MG 05-19 tab, PO, l Oral Tablet 14:47: Daily Alice nn [Abilif] Clonidine Yes PO, Memoria 05-19 Bedtime l 14:47: Ibuprofen Yes 800 mg, Memor ia 05-19 PO, BID l 14:46: Miralax No Notes: Memoria 5-09 Dissolve l 14:00: in 8 oz of water or juice. (Same as: Miralax) Dulcolax No Notes: Memoria Laxative 08 (Same As: l 15:24: Dulcolax, [place] 00 Bisco-Lax) Sertraline No Notes: Memor ia 5-07 (Same as: l 14:00: Zoloft) [place] 00 Methocarbam No Notes: Mau agata ol 5-07 (Same l 14:00: as:Robaxin ) aripiprazol No Notes: Mau agata e 5-07 Non-Formul l 14:00: elva Drug. [employer] 00 (Same as: Abilifdori) Entocort EC No 9 mg, Memor ia 5-07 Route: PO, l 14:00: Drug form: ERCAP, Daily, Dosing Weight 71.818, kg, Start date: 01/01/14 9:00:00, Duration: 30 day, Stop date: 01/30/14 9:00:00 Budesonide No Notes: Memor ia 5-07 (Same As: l 14:00: Entocort EC or Budesonide 3 mg EC / ERC) "Do Not Crush" Protonix No Notes: Memoria 5-07 Tablet l 12:30: should not be chewed or crushed. (Same as: Protonix) Dicyclomine No Notes: Mau agata 5-07 (Same as: l 04:30: Bentyl) Trazodone No Notes: Memori a Hydrochlori 5-07 (Same As: l de 100 MG 02:00: Desyrel) Herm booker Oral Tablet 00 Zocor No Notes: Memoria 5-07 (Same as: l 02:00: Zocor) [place] Ditropan XL No Notes: Mau agata 5-07 (Same as: l 02:00: Ditropan [employer] 00 XL) "Do Not Crush" Pamelor No Notes: Memoria 5-07 (Same l 02:00: as:Pamelor [place] 00 , Aventyl) metoprolol No Notes: Memor ia tartrate 5-07 (Same as: l 02:00: Lopressor) [employer] 00 Pentasa No Notes: Memoria 5-06 (Same as: l 22:00: Pentasa) [employer] 00 Do not open capsule. "Do Not Crush" Ketorolac No 4 days. Mau agata Tromethamin 5-06 l e 15 MG/ML 12:43: [place] Injectable 00 Solution Nicotine No Notes: Memoria 5-05 (Same as: l 22:00: Habitrol) [place] 00 "Remove old patch before applicatio n of new patch" Protonix No Notes: For Mem oria 5-05 IV push l 21:30: reconstitu [place] 00 te with 10 ml 0.9% sodium chloride and push over 2 minutes. (Same as: Protonix) 24 HR Yes 9 mg = 3 Memoria Budesonide 5-05 cap, PO, l 3 MG 11:54: Daily, # [employer] Extended 00 90 cap, 0 Release Refill(s) [...] 4 cap, l Extended 11:54: BID, 0 [employer] Release 00 Refill(s) Capsule [Pentasa] sertraline Yes 100 mg = 1 M emoria 100 mg oral 5-05 tab, PO, l tablet 11:54: Daily, # [employer] 00 30 tab, 0 Refill(s) dicyclomine Yes [...] cap, PO, l Oral 11:54: Bedtime, # [place] Capsule 00 90 cap, 0 [Pamelor] Refill(s) [...] 0 Memoria Bicarbonate 5-05 Refill(s) l 11:54: [employer] 00 methocarbam Yes 750 mg = 1 [...] Notes: Memoria 5-05 (Same l 09:01: as:MORPhin [employer] 00 e Sulfate) Zofran No Notes: Memoria 5-05 (Same as: l 09:00: Zofran) [place] 00 Lovenox No Notes: Memoria 5-05 (Same as: l 09:00: Lovenox) [employer] normal No 1,000 mL, Memori a saline 0.9% 12-30 Rate: 100 l IV 1,000 mL 08:52: ml/hr, Herm booker 00 Infuse over: 10 hr, Route: IV, Dosing Weight 71.818 kg, Total Volume: 1,000, Start date: 12/30/13 3:52:00, Duration: 30 day, Stop date: 01/29/14 3:51:00 Vital Signs Vital Name Observation Time Observation Value Comments Source Weight 2014-05-16 14:54:00 [facility] [place] BMI Calculated 2014-05-16 14:54:[address] [employer] Height 2014-05-16 14:54:00 160.[address] [facility] [employer] Respitory Rate 2014-01-02 20:58:00 Memori al [place] Heart Rate 2014-01-02 20:58:00 [facility] [place] Temperature Oral (F) 2014-01-02 20:58:00 98.4 F [facility] [place] Diastolic (mm Hg) 2014-01-02 20:58:00 Mem orial [place] Systolic (mm Hg) 2014-01-02 20:58:00 Mau rial [employer] Temperature Oral (F) 2014-01-02 16:23:00 98.[address] [facility] [employer] Heart Rate 2014-01-02 16:23:[address] [facility] [employer] Respitory Rate 2014-01-02 16:23:00 [facility] [employer] Systolic (mm Hg) 2014-01-02 16:23:00 Mau rial [employer] Diastolic (mm Hg) 2014-01-02 16:23:00 Mem [address] [employer] Diastolic (mm Hg) 2014-01-02 12:20:00 Mem orial [place] Systolic (mm Hg) 2014-01-02 12:20:00 Mau rial [employer] Respitory Rate 2014-01-02 12:20:00 [facility] [employer] Temperature Oral (F) 2014-01-02 12:20:00 98.5 F [facility] [place] Heart Rate 2014-01-02 12:20:00 [facility] [place] Weight 2013-12-30 08:54:00 [facility] [place] Height 2013-12-30 08:54:00 162.56 cm [facility] [place] BMI Calculated 2013-12-30 08:54:[address] [employer] Weight 2013-12-30 08:52:00 [facility] [place] BMI Calculated 2013-12-30 08:52:00 Memori al [place] Height 2013-12-30 08:52:00 162.56 cm [facility] [place] Weight 2013-12-30 08:40:00 [facility] [place] BMI Calculated 2013-12-30 08:40:00 Memori al [place] Height 2013-12-30 08:40:00 162.56 cm [facility] [employer] Procedures Procedure Date / Time Performed Performing Clinician Anrdae grijalva Abdominal aorta angiogram [facility] [place] Abdominal [facility] of renal [facility] arteries, bilateral Appendectomy [facility] mesenteric [facility] angiography Suspension of bladder [facility] ermann Tonsillectomy [facility] Bladder augmentation [facility] rmann Plan of Care Planned Activity Planned Date Details Comments Source Future Scheduled Test 2020-05-28 00:00:00 IMM Influenza [facility] Seasonal May to October (>/= 19 yrs) [code = IMM Influenza Seasonal May to October (>/= 19 yrs)] Future Scheduled Test 2013 00:00:[address] [facility] malignant neoplasm of colon (procedure) [code = 388648910] Future Scheduled Test 2003 00:00:00 Breast Cancer Scrn [facility] (Yearly) [code = Breast Cancer Scrn (Yearly)] Future Scheduled Test 1993 00:00:[address] [facility] malignant neoplasm of cervix (procedure) [code = 063499959] Future Scheduled Test 1993 00:00:[address] [facility] malignant neoplasm of cervix (procedure) [code = 247302355] Encounters Start End Encounter Admission Attending Care Care Encounter Source Date/Time Date/Time Type Type Clinicians Facility Department ID 2020-07-02 2020-07-02 Emergency [place] [id number] 14:38:00 16:16:00 Elier Chris [id number] [place] [address] [id number] 2020-04-29 2020-04-29 Emergency [place] [id number] 12:18:00 15:08:00 Zoraida Chris [id number] [place] [address] [id number] 2020-03-17 2020-03-17 Emergency GENEVA Chao [id number] 11:37:56 13:51:00 Elier Chris [id number] [place] [address] [id number] 2020-03-17 2020-03-17 Orders Doctor LUCIANO [id number] 00:00:00 00:00:00 Only Unassigned, JUANCARLOS [id number] [place] [facility] [id number] [id number] 2018-12-10 2018-12-10 Outpatient [facility] [id number] Magdiel 16:03:58 16:03:58 Health 2018-12-10 2018-12-10 Emergency [facility] MED [id number] Magdiel 11:20:39 11:20:39 Health 2017-09-01 2017-09-01 Emergency [facility] MED [id number] Magdiel 10:29:00 10:29:00 [facility] 2015-02-04 2015-02-04 Outpatient Ashish [facility] [id number] 08:00:00 23:59:00 Julian Marce 00 2015-01-05 2015-01-05 Outpatient Marilee [facility] [id number] 10:04:00 23:59:00 Rupesh de la cruz 2014-05-20 2014-05-20 Outpatient Tito [facility] [id number] 06:14:00 14:30:00 Larry Woodson 00 2013-12-30 2014-01-02 Outpatient Taurus, [facility] [id number] 02:50:00 22:00:00 Rivera 25 Results Test Description [...] Alice nn 14:26:00 CHEM PANEL 2014-05-19 104 Morenita Sandraa nn 14:26:00 CHEM PANEL 2014-05-19 3.7 [facility] nn 14:26:00 CHEM PANEL 2014-05-19 136 [facility] Alice nn 14:26:00 CHEM PANEL 2014-05-19 9.7 [facility] Alice nn 14:26:00 HEMATOLOGY 2014-05-19 101.6 [facility] Alice nn 14:26:00 HEMATOLOGY 2014-05-19 14:26:00 Test Item Value Reference Range Interpretation Comme nts MCH (test code = MCH) 35.5 pg 27.0-31.0 [facility] TukmwzoAIHNLMGCVR1717-08-44 14:26:0013.3[facility]ann[facility]MATOLOGY 2014-05-19 14:26:0037.9[facility] FjjfscyWXJTUOYWDV9970-39-92 14:26:003.73[facility] NxywkfpJRGYGNMLDY9031-19-11 14:26:006.1[facility] MkfizquTQSOIHNFII8509-14-53 14:26:008.0[facility] ZraabmwYKSAGOKLKF7804-16-51 14:26:0017.2[facility] [employer] XBRFHSVUFQ1889-81-12 14:26:04759Hgssxvrc FewarevBGIMMNTSWG7830-87-85 14:26:00 35.0[facility] YzopzdqSFYTNDAPFH4686-94-39 14:26:000.93[facility]ann[facility]MATOLOGY 2014-05-19 14:26:00 Test Item Value Reference Range Interpretation Comments PT (test code = PT) 12.4 s 12.0-14.7 [facility] AcdkcijZHLXGEJDTU1800-33-53 09:42:003.80[facility]ann[facility]MATOLOGY 2014-01-01 09:42:00 Test Item Value Reference Range Interpretation Comments MCH (test code = MCH) 31.1 pg 27.0-31.0 [facility] BprgjncYWZUMTGDQB3386-32-79 09:42:0011.8[facility]annHEMATOLOGY 2014-01-01 09:42:0034.5[facility] MchdbibMHOCXRROXI7937-88-84 09:42:0090.6[facility] NbehjesNWMXRHGADW0503-04-25 09:42:0016.3[facility] DwipvphPFDYWKSOUZ8874-95-86 09:42:0034.3[facility] TjirudkVIDYMQGTGZ1831-01-41 09:42:09[address] [employer] TZVMYQOIMT1313-84-32 09:42:007.9[facility] EizaovbWTXYFHTMNF9818-01-11 09:42:001.6 [facility] EjzkmjhZLZWUMDOQO9845-18-57 09:42:000.2[facility]annHEMATOLOGY 2014-01-01 09:42:002.6[facility] HxhtfbvEIWETLTINW5799-31-83 09:42:007.4[facility] RjdbtngTQOSHUMLRZ1227-33-86 09:42:001.3[facility] RhpursjIRPKJJMEPE5989-65-43 09:42:000.3[facility] RmwmaahBUPQPCQOYA5390-33-63 09:42:000.1[facility] [place] CAGANSLWCT6629-08-00 09:42:000.0[facility] SxfkbdcHLUNNBMXBI6493-74-13 09:42:00 30.7[facility] IlrsjyfBBLVNJXGLQ3057-83-10 09:42:0060.1[facility] HermannCHEM PANEL 2014-01-01 09:42:002.0[facility] HermannCHEM JDKZS0675-76-31 09:42:22265Xjlqtfcc HermannCHEM YCZDA2896-96-63 09:42:004[facility] HermannCHEM MLLOW3267-95-46 09:42:003.8[facility] HermannCHEM GZDHR4232-43-24 09:42:000.5[facility] HermannCHEM UHUJZ0193-39-08 09:42:0094[facility] HermannCHEM YZKYV3469-69-84 09:42:36465 [facility] HermannCHEM QTIPH3361-19-63 09:42:008.7[facility] HermannCHEM PANEL 2014-01-01 09:42:01953Dqiymkxl HermannCHEM TNXVO6428-75-20 09:42:0030[facility] HermannCHEM JFTTP6665-11-89 09:42:0010.8[facility] RxuloufRWYDOUZVBC2751-92-64 09:42:004.4[facility] HermannCHEM DWEGM4224-22-91 12:13:001.8[facility] HermannCHEM PAWGY6636-67-19 12:13:002.6[facility] HermannCHEM XHFRT3413-08-60 12:13:002.8 [facility] HermannCHEM MAXZJ1820-31-10 12:13:001.2[facility] HermannCHEM PANEL 2013-12-30 12:13:0010[facility] HermannCHEM XARHT8636-84-69 12:13:006.9[facility] HermannCHEM SOFPS3506-00-05 12:13:37411Albcolvm HermannCHEM CJXPX6753-28-56 12:13:0084[facility] HermannCHEM JAVSR4023-97-71 12:13:003.9[facility] HermannCHEM OBEXB1526-39-91 12:13:48786Gytyxlpp HermannCHEM ICEAN2220-22-11 12:13:000.7 [facility] HermannCHEM MQXMT9652-29-87 12:13:007[facility] HermannCHEM PANEL 2013-12-30 12:13:000.3[facility] HermannCHEM UJBZN1631-47-87 12:13:0071[facility] HermannCHEM HISQH6791-34-96 12:13:0021[facility] HermannCHEM AXPUB2075-48-34 12:13:0020[facility] HermannCHEM FSWIU6125-80-16 12:13:006.1[facility] HermannCHEM LYWUN0338-04-58 12:13:0033[facility] HermannCHEM RHKEC1227-98-20 12:13:003.3 [facility]annCHEM USYGL2162-39-95 12:13:008.4[facility] HermannCHEM PANEL 2013-12-30 12:13:80825Suktriwm IujnynrNYLYPTQVGJ2131-82-38 12:13:000.0[facility] IvfkxkgQEUKYRMXIE0916-94-55 12:13:0063.5[facility] GwocmvnHCUDJMZDFR7638-69-83 12:13:000.3[facility] VjhetgyNPMDPFEDRH2458-05-37 12:13:000.2[facility] [employer] [place] TDZAYHTXIA3491-05-11 12:13:001.5[facility] ZjymblaCXYOURYMCN4336-85-27 12:13:003.3 [facility] PiacrvqFYMWXICMPG4633-12-05 12:13:000.1[facility] HermannHEMATOLOGY 2013-12-30 12:13:0028.9[facility] JreeljbJOHGFSDMEO7141-26-34 12:13:006.2[facility] IlmhpvkIZXNWBMQFQ3376-96-06 12:13:001.2[facility] LfusalnKHAIWNJCFL0847-21-19 12:13:0034.3[facility] AriyfusKCUXREATOD2970-25-56 12:13:0016.5[facility] [place] YEGDEEPMKO1742-38-27 12:13:00 Test Item Value Reference Range Interpretation Comments MCH (test code = MCH) 31.5 pg 27.0-31.0 [facility] ZtyxvtoGXCJHYMCVN9956-91-81 12:13:0091.9[facility] HermannHEMATOLOGY 2013-12-30 12:13:40426Irldemby LrbohhaKGFNTWUWBA6378-09-06 12:13:007.9[facility] RchfydiKGRLNILGFM3130-02-23 12:13:003.91[facility] UxaapqeAKJIQHFHHV7701-35-39 12:13:0035.9[facility] NybtczqMWBYRFCANY2190-22-72 12:13:0012.3[facility] [place] XPDBJLCXAU9181-25-04 12:13:005.1[facility] [employer] [place]
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
[2020-11-02 22:16] VITALS: BP 183/107; TEMP 97.2; O2SAT 95
== END 2020-11-02 21:43 | disposition left against medical advice (07) ==
LOC: ER 18:28
DX: Z53.21 Procedure and treatment not carried out due to patient leaving prior to being seen by health care provider (principal)
CPT/HCPCS: 99282

== ENCOUNTER 2021-02-16 09:36 | Emergency (ER) | payer OTHER ==
--- OUTSIDE RECORDS SUMMARY | 2021-02-16 09:39 | XMS REPORT | Continuity of Care Document ---
:1965 Author Organization [facility] t Address [address] [place] [address] Care Team Providers Name Role Phone Gaurav [...] Memoria ANGIOGRAM 05-06 13:44:00 l DX: 00:00: [place] RENAL 00 ANGIOGRAM Active 05/06/2014 [facility] BOWEL Diagnosis Active 2014-01-07 [facility] oria OBSTRUCTIO 12-30 21:50:00 l N BOWEL 00:00: [place] OBSTRUCTIO 00 N Active 12/30/2013 [facility] 795.79 Diagnosis Active 2000-2015-01-05 Mem oria V82.2 - 10:04:00 l 724.2 795.79 00:00: [place] 719.43 V82.2 00 726.31 724.2 719.43 726.31 Active 08/28/2000 [facility] Crohn's Problem Resolve 2015-02-07 Mem oria disease d 00:48:36 l (disorder) Crohn's Her giles disease (disorder) Resolved Problem 02/07/2015 J CARLOS [place], [place], [facility] Hyperchole Problem Active 2015-02-07 M emoria sterolemia 00:48:36 l (disorder) Moncho n Hyperchole sterolemia (disorder) Active Problem 02/07/2015 J CARLOS Morin,[facility] Hypertensi Problem Active 2015-02-07 M emoria ve 00:48:36 l disorder, [place] systemic Hypertensi arterial ve (disorder) disorder, systemic arterial (disorder) Active Problem 02/07/2015 J CARLOS Morin,[facility] Sleep Problem Active 2015-02-07 Memor ia apnea 00:48:36 l (finding) Sleep Moncho n apnea (finding) Active Problem 02/07/2015 J CARLOS Morin,[facility] INTESTINAL Diagnosis Active 2014-01-07 Memoria OBSTRUCT 21:50:00 l NOS [place] INTESTINAL OBSTRUCT NOS Active [facility] Allergies, Adverse Reactions, Alerts Allergy Allergy Status [...] to drug NKFA NKFA Active Memoria l [place] sulfa sulfa Active Memoria drugs drugs l [place] Social History Social Habit Start Date Stop Date Quantity Comments Source Tobacco use and 2018-04-13 2018-04-13 Never used [facility] ethodist exposure 00:00:00 00:00:00 Alcohol intake 2018-04-13 2018-04-13 Current [facility] thodist 00:00:00 00:00:00 non-drinker of alcohol (finding) Social History 2013-12-30 2013-12-30 [facility] Aundrea ermann 13:29:20 13:29:20 Sex [birth year] At [birth year] Onel frederick 00:00:00 00:00:00 Smoking Status Start Date Stop Date Source Current every day smoker 2018-04-13 00:00:00 Vivian merrill [place] Medications Ordered Filled Start Stop Current Ordering [...] 18:26: nightly. st 50 metoprolol Yes 25mg [id number] Take 25 mg Sykes tartrate 6-19 [id number] by mouth 3 Methodi (LOPRESSOR) 18:26: 3D (three) st 25 mg 50 times a tablet day. Note: Rx label states BID but pt takes TID. Ativan No Notes: Memoria 05-20 (Same as: l 14:26: Ativan) [place] 00 Acetaminoph No Notes: Do M emoria en 05-20 not exceed l 13:34: 4 gm/day. (Same as: Tylenol) rOPINIRole Yes 1 mg = 1 Mem oria 1 mg oral 05-20 tab, PO, l tablet 12:18: Daily, 0 [place] 00 Refill(s) Klor-Con 10 Yes 10 mEq, Mem oria - PO, Daily, l 12:18: 0 [place] 00 Refill(s) Hydrochloro Yes 1 tab, PO, Memoria thiazide 05-20 Daily, # l 12.5 MG / 03:00: 30 tab, 0 Her giles Losartan Refill(s) Potassium 50 MG Oral Tablet aspirin [...] Dulcolax, Bisco-Lax) Sertraline No Notes: Memor ia -07 (Same as: l 14:00: Zoloft) Methocarbam No Notes: Mau agata ol 07 (Same l 14:00: as:Robaxin ) aripiprazol No Notes: Mau agata e -07 Non-Formul l 14:00: elva Drug. (Same as: Abili) Entocort EC No 9 mg, Memor ia [...] Memoria 5-07 Tablet l 12:30: should not [place] 00 be chewed or crushed. (Same as: Protonix) Dicyclomine No Notes: Mau agata 5-07 (Same as: l 04:30: Bentyl) [place] Trazodone No Notes: Memori a Hydrochlori 5-07 (Same As: l de 100 MG 02:00: Desyrel) Herm booker Oral Tablet 00 Zocor No Notes: Memoria 5-07 (Same as: l 02:00: Zocor) [place] Ditropan XL No Notes: Mau agata 5-07 (Same as: l 02:00: Ditropan [place] XL) "Do Not Crush" Pamelor No Notes: Memoria 5-07 (Same l 02:00: as:Pamelor [place] 00 , Aventyl) metoprolol No Notes: Memor ia tartrate 5-07 (Same as: l 02:00: Lopressor) [place] Pentasa No Notes: Memoria 5-06 (Same as: l 22:00: Pentasa) [place] 00 Do not open capsule. "Do Not Crush" Ketorolac No 4 days. Mau agata Tromethamin 5-06 l e 15 MG/ML 12:43: [place] Injectable 00 Solution Nicotine No Notes: Memoria 5-05 (Same as: l 22:00: Habitrol) Nghai "Remove old patch before applicatio n of new patch" Protonix No Notes: For Mem oria 5-05 IV push l 21:30: reconstitu [place] te with 10 ml 0.9% sodium chloride and push over 2 minutes. (Same as: Protonix) 24 HR Yes 9 mg = 3 Memoria Budesonide 5-05 cap, PO, l 3 MG 11:54: Daily, # [place] Extended 00 90 cap, 0 Release Refill(s) [...] 4 cap, l Extended 11:54: BID, 0 [place] Release 00 Refill(s) Capsule [Pentasa] sertraline Yes [...] de 100 MG 11:54: Bedtime, # Nathan kyrie Oral Tablet 00 90 tab, 0 Refill(s) Ranitidine Yes 300 mg = 1 M emoria 300 MG Oral 5-05 tab, PO, l Tablet 11:54: Daily, # [place] [Zantac] 00 30 tab, 0 Refill(s) Sodium Yes 0 Memoria Bicarbonate 5-05 Refill(s) l 11:54: [place] 00 methocarbam Yes 750 mg = 1 Memoria ol 750 mg 5-05 tab, PO, l oral tablet 11:54: Daily, # Nathan kyrie 00 60 tab, 0 Refill(s) Omeprazole Yes [...] Memoria 5-05 (Same as: l 09:00: Lovenox) [place] 00 normal No 1,000 mL, Cheori a saline 0.9% 12-30 Rate: 100 l IV 1,000 mL 08:52: ml/hr, Herm booker Infuse over: 10 hr, Route: IV, Dosing Weight 71.818 kg, Total Volume: 1,000, Start date: 12/30/13 3:52:00, Duration: 30 day, Stop date: 01/29/14 3:51:00 Immunizations Ordered Immunization Filled Immunization Date Status Commen ts Source Name Name Tdap 2018-04-13 [facility] 00:00:00 [place] Vital Signs Vital Name Observation Time Observation Value Comments Source Weight 2014-05-16 14:54:00 [facility] [place] BMI Calculated 2014-05-16 14:54:00 Memori al [place] Height 2014-05-16 14:54:00 160.02 cm [facility] [place] Respitory Rate 2014-01-02 20:58:00 Memori al [place] Heart Rate 2014-01-02 20:58:00 [facility] [place] Temperature Oral (F) 2014-01-02 20:58:00 98.4 F [facility] [place] Diastolic (mm Hg) 2014-01-02 20:58:00 Mem orial [place] Systolic (mm Hg) 2014-01-02 20:58:00 Mau rial [place] Temperature Oral (F) 2014-01-02 16:23:00 98.2 F [facility] [place] Heart Rate 2014-01-02 16:23:00 [facility] [place] Respitory Rate 2014-01-02 16:23:00 Memori al [place] Systolic (mm Hg) 2014-01-02 16:23:00 Mau rial [place] Diastolic (mm Hg) 2014-01-02 16:23:00 Mem orial [place] Diastolic (mm Hg) 2014-01-02 12:20:00 Mem orial [place] Systolic (mm Hg) 2014-01-02 12:20:00 Mau rial [place] Respitory Rate 2014-01-02 12:20:00 Memori al [place] Temperature Oral (F) 2014-01-02 12:20:00 98.5 F [facility] [place] Heart Rate 2014-01-02 12:20:00 [facility] [place] Weight 2013-12-30 08:54:00 [facility] [place] Height 2013-12-30 08:54:00 162.56 cm [facility] [place] BMI Calculated 2013-12-30 08:54:00 Memori al [place] Weight 2013-12-30 08:52:00 [facility] [place] BMI Calculated 2013-12-30 08:52:00 Memori al [place] Height 2013-12-30 08:52:00 162.56 cm [facility] [place] Weight 2013-12-30 08:40:00 [facility] [place] BMI Calculated 2013-12-30 08:40:00 Memori al [place] Height 2013-12-30 08:40:00 162.56 cm [facility] [place] Procedures Procedure Date / Time Performed Performing Clinician [facility] e Abdominal aorta angiogram [facility] al [place] Abdominal hysterectomy [facility] [place] [facility], bilateral Appendectomy [facility] [place] Superior mesenteric [facility] Her giles angiography Suspension of bladder [facility] ermann Tonsillectomy [facility] Bladder augmentation [facility] Plan of Care Planned Activity Planned Date Details Comments Source Future Scheduled 2021-05-28 IMM Influenza Magdiel Savage lt Test 00:00:00 Seasonal May to October (>/= 19 yrs) [code = IMM Influenza Seasonal May to October (>/= 19 yrs)] Future Scheduled 2021-03-28 INFLUENZA VACCINE [place] [facility] 00:00:00 [code = INFLUENZA VACCINE] Future Scheduled 2017-07-28 BREAST CANCER [facility] thodist Test 00:00:00 SCREENING [code = BREAST CANCER SCREENING] Future Scheduled 2013 Screening for Magdiel Savage lt Test 00:00:00 malignant neoplasm of colon (procedure) [code = 700980576] Future Scheduled 2013 COLONOSCOPY SCREENING [place] [facility] Test 00:00:00 [code = COLONOSCOPY SCREENING] Future Scheduled 2013 SHINGLES VACCINES [place] [facility] 00:00:00 (#1) [code = SHINGLES VACCINES (#1)] Future Scheduled 2003 Breast Cancer Scrn [facility] Health Test 00:00:00 (Yearly) [code = Breast Cancer Scrn (Yearly)] Future Scheduled 1993 Screening for Magdiel Savage lt Test 00:00:00 malignant neoplasm of cervix (procedure) [code = 986860653] Future Scheduled 1993 Screening for Magdiel Savage lt Test 00:00:00 malignant neoplasm of cervix (procedure) [code = 769700711] Future Scheduled 1984-02-27 Screening for [facility] thodist Test 00:00:00 malignant neoplasm of cervix (procedure) [code = 426726318] Future Scheduled 1981 Hepatitis C screening [place] [facility] Test 00:00:00 (procedure) [code = 599053777] Future Scheduled 1975 COVID-19 Vaccine (1) [facility] 00:00:00 [code = COVID-19 Vaccine (1)] Future Scheduled 1975 COVID-19 VACCINE (1) [facility]ian [facility] Test 00:00:00 [code = COVID-19 VACCINE (1)] Encounters Start End Encounter Admission Attending Care Care Encounter Source Date/Time Date/Time Type Type Clinicians Facility Department ID 2020-07-02 2020-07-02 Emergency , [facility] [id number] 14:38:00 16:16:00 Elier Chris [id number] [place] [id number] [place] [id number] 2020-04-29 2020-04-29 Emergency Luana, [facility] [id number] 12:18:00 15:08:00 Zoraida Chris [id number] [place] [id number] [place] [address] [id number] 2020-03-17 2020-03-17 Emergency Chao, [facility] [id number] 11:37:56 13:51:00 Elier Chris [id number] [place] [id number] [place] [address] [id number] 2020-03-17 2020-03-17 Orders Doctor LUCIANO [id number] 00:00:00 00:00:00 Only Unassigned, JUANCARLOS [id number] [place] [facility] [id number] 2018-12-10 2018-12-10 Outpatient [facility] [id number] Magdiel 16:03:58 16:03:58 [facility] 2018-12-10 2018-12-10 Emergency [facility] [id number] Magdiel 11:20:39 11:20:39 Health 2017-09-01 2017-09-01 Emergency [facility] [id number] Magdiel 10:29:00 10:29:00 [facility] 2015-02-04 2015-02-04 Outpatient Ashish [facility] [id number] 08:00:00 23:59:00 Julian Zheng 2015-01-05 2015-01-05 Outpatient Marilee [facility] [id number] 10:04:00 23:59:00 Rupesh de la cruz 2014-05-20 2014-05-20 Outpatient Tito [facility] [id number] 06:14:00 14:30:00 Larry Woodson 2013-12-30 2014-01-02 Outpatient Taurus [facility] [id number] 02:50:00 22:00:00 Rivera 25 Results Test Description [...] code = MCH) 35.5 pg 27.0-31.0 Memorial JlznbpoJVHBFKXIKF4016-11-77 14:26:0013.3[facility]ann[facility] 2014-05-19 14:26:0037.9[facility] PbzqxezEPALDHSYKC0287-95-49 14:26:003.73[facility] AlocahzMRPHYZMHID5830-28-36 14:26:006.1[facility] RrajzjiZCKABACMQN7893-15-35 14:26:008.0[facility] AxvznnoFIFWGNSZPV9049-39-09 14:26:0017.2[facility] [place] SVPKCKKUCJ6868-45-89 14:26:65355Xharxvpg MypebctUPMGKQDCOQ1774-38-43 14:26:00 35.0[facility] OgzunysOOASHXWGVW7721-73-48 14:26:000.93[facility] HermannHEMATOLOGY 2014-05-19 14:26:00 Test Item Value Reference Range Interpretation Comments PT (test code = PT) 12.4 s 12.0-14.7 Memorial JjhvpfxPJFLBAMLMI1503-92-72 09:42:004.4[facility]annHEMATOLOGY 2014-01-01 09:42:003.80[facility] RythntxEWIIYOSTHF0170-99-08 09:42:00 Test Item Value Reference Range Interpretation Comments MCH (test code = MCH) 31.1 pg 27.0-31.0 Memorial JertrvdTYVUEPOBRD2895-12-53 09:42:0011.8[facility] HermannHEMATOLOGY 2014-01-01 09:42:0034.5[facility] KlvunskROHHBNJTCX9589-72-86 09:42:0090.6[facility]orial CvfzouoRTTFZJQIXY3118-04-87 09:42:0016.3[facility] BwwylgqSBISLVNLRR8887-34-04 09:42:0034.3[facility] WlesszuXDOWIQOLZV7988-71-61 09:42:42319Nhdtfcct [place] SKYTMLEFPD2916-57-11 09:42:007.9[facility] VmyoltcZTRXVZXMWQ5069-88-46 09:42:001.6 Memorial PbhjadiPHDUAUTJJU6607-74-41 09:42:000.2[facility] HermannHEMATOLOGY 2014-01-01 09:42:002.6[facility] XffgrgbAKMCGPKEVR4972-43-97 09:42:007.4[facility] GhsqopgJZEOMILPCW6512-48-55 09:42:001.3[facility]orial IybilouBKKLRGPVZJ7599-35-24 09:42:000.3[facility]orial CqxqafzKSXVPJPCSL5570-11-03 09:42:000.1[facility] [place] ADAYFAATJK7211-19-88 09:42:000.0[facility] PvduycxCZVREKGTRL5802-52-03 09:42:00 30.7[facility]orial ChhqvqfPLZEQYCBSJ6182-01-12 09:42:0060.1[facility] HermannCHEM PANEL 2014-01-01 09:42:002.0[facility] HermannCHEM KEZDL2929-05-83 09:42:00684Zzyvicio HermannCHEM OCCHX1449-18-52 09:42:004[facility] HermannCHEM ENVJI1836-88-15 09:42:003.8[facility] HermannCHEM KCNPY7851-10-91 09:42:000.5[facility] HermannCHEM GPYNZ9384-93-68 09:42:0094[facility] HermannCHEM RPGGY6132-14-65 09:42:81197 [facility] HermannCHEM PVPSP8536-77-79 09:42:008.7[facility] HermannCHEM PANEL 2014-01-01 09:42:71832Uavabvqw HermannCHEM MCSIH1428-89-29 09:42:0030[facility] HermannCHEM WNCLH9856-29-13 09:42:0010.8[facility] HermannCHEM MMBLF1421-38-05 12:13:001.8[facility] HermannCHEM QYMMU1182-87-00 12:13:002.6[facility] HermannCHEM SRQFR7826-49-43 12:13:002.8[facility] HermannCHEM QQMYS8106-80-20 12:13:001.2 [facility] HermannCHEM JLAXE0118-07-59 12:13:0010[facility] HermannCHEM PANEL 2013-12-30 12:13:006.9[facility] HermannCHEM LPTKX4639-74-77 12:13:17306Jixohesz HermannCHEM ZIFUF0417-74-13 12:13:0084Mem[facility] HermannCHEM RVXKU8767-15-91 12:13:003.9[facility] HermannCHEM HUHYR1593-26-49 12:13:84172Ukbspyci HermannCHEM CQGBO8288-76-72 12:13:000.7[facility] HermannCHEM MCDEL6255-39-93 12:13:007 [facility] HermannCHEM TTXZE5175-49-26 12:13:000.3[facility] HermannCHEM PANEL 2013-12-30 12:13:0071Mem[facility] HermannCHEM LDQUB1018-22-64 12:13:0021Mem[facility] HermannCHEM JRYFM8300-78-92 12:13:0020Mem[facility] HermannCHEM VHAZV2575-06-97 12:13:006.1[facility] HermannCHEM PXXCP7668-26-98 12:13:0033Mem[facility] HermannCHEM DRTEJ8938-28-95 12:13:003.3[facility] HermannCHEM SONOF0259-30-68 12:13:008.4 [facility] HermannCHEM LHBYR0735-06-22 12:13:16123Aapwmdaz HermannHEMATOLOGY 2013-12-30 12:13:000.0Memorial GwzuaacNAIPVVZQOL1645-80-50 12:13:0063.5Memorial PtxzgncDXNCQBEDEK2879-94-08 12:13:000.3Memorial RxrssqdRTCJZYZFMD2060-67-84 12:13:000.2[facility]orial LwtivvoCIWNQKCAEM6638-58-88 12:13:001.5[facility] [place] PWVGTRCWIR1013-45-22 12:13:003.3[facility]orial MocyzohDEHPAZXCQS3525-67-90 12:13:000.1 Memorial JuxzrybORUEOMYEZA9094-40-55 12:13:0028.9[facility] HermannHEMATOLOGY 2013-12-30 12:13:006.2[facility] ErnnnbhTLOAHPDAOM0584-84-18 12:13:001.2[facility]orial YsibxxiHVOFOLOMGI2045-73-60 12:13:0034.3[facility]orial XhskuofMEKBONTGIY5215-34-22 12:13:0016.5[facility]orial FnzgdmvFHOUTYAFTO8266-26-22 12:13:00 Test Item Value Reference Range Interpretation Comments MCH (test code = MCH) 31.5 pg 27.0-31.0 Memorial BeqjmhzCIKQWCEYBK8948-97-09 12:13:0091.9[facility] HermannHEMATOLOGY 2013-12-30 12:13:54860Pjoevxaj CxgjjwhPVPIUVRCSG7023-23-34 12:13:007.9[facility]orial BjtpimcIWALNXQJSB4845-03-75 12:13:003.91[facility]orial LcfmydpOTOLZLKYRI1687-32-87 12:13:0035.9[facility]orial YqjslrvHOPKRZLOEY2571-89-67 12:13:0012.3[facility] [place] XEOFIEBTKT7133-41-34 12:13:005.1[facility] [place]
[2021-02-16] MEDS ORDERED: ONDANSETRON 4 MG/2 ML VIAL ONE ×2 (10:25→12:58)
--- NOTE | 2021-02-16 10:40 | RAD REPORT ---
EXAM DESCRIPTION: Joshua Single View02/16/2021 10:23 am CLINICAL HISTORY: Congestion COMPARISON: December 2020 FINDINGS: The lungs appear clear of acute infiltrate. The heart is normal size IMPRESSION: No acute abnormalities displayed
[2021-02-16 10:46] LABS: Protime INR 0.89
[2021-02-16 10:47] LABS: Basophils % 0.3 % (0-1.3); Hematocrit 38.9 % (36.0-45.0); Lymphocytes % 35.8 % (15.3-44.8); MPV 9.5 fL (7.6-11.3); RBC Red Blood Cell Count 4.16 M/uL (3.86-4.86)
[2021-02-16 10:54] LABS: ALT/SGPT 87 U/L (12-78); AST/SGOT 63 U/L (15-37); Alkaline Phosphatase 102 U/L (45-117); BUN Blood Urea Nitrogen 12 mg/dL (7-18); Bicarbonate 25 mmol/L (21-32); Bilirubin Direct 0.1 mg/dL (0-0.2); Bilirubin Total 0.6 mg/dL (0.2-1.0); Glucose Level 91 mg/dL (74-106); Magnesium 2.1 mg/dL (1.8-2.4); NT PRO-BNP 82 pg/mL (<125); Potassium 3.9 mmol/L (3.5-5.1); Protein, Total 7.4 g/dL (6.4-8.2); Sodium Level 138 mmol/L (136-145); Troponin (Emerg Dept Use Only) < 0.02 ng/mL (0.0-0.045)
[2021-02-16] MEDS ORDERED: NA CHLORIDE 0.9% 500 ML ONE (11:20)
[2021-02-16] MEDS ORDERED: KETOROLAC 30 MG/ML INJ ONE ×2 (12:16→12:20)
--- NOTE | 2021-02-16 12:41 | RAD REPORT ---
EXAM DESCRIPTION: CT - Head Brain Wo Cont - 02/16/2021 12:30 pm CLINICAL HISTORY: HEADACHE COMPARISON: Head Brain Wo Cont dated 09/16/2020 TECHNIQUE: Axial 5 mm thick images of the head were obtained without IV contrast. All CT scans are performed using dose optimization technique as appropriate and may include automated exposure control or mA/KV adjustment according to patient size. FINDINGS: No intracranial hemorrhage, mass, edema or shift of mid-line structures. No acute infarcti on changes seen. No abnormal extra-axial fluid collections. Ventricles are normal. Physiologic basal ganglia calcifications are present. Mastoid air cells and visualized portions of the paranasal sinuses are clear. No acute bony findings. IMPRESSION: Negative non-contrast CT head examination. No identifiable change from September 16 study.
[2021-02-16] MEDS ORDERED: MORPHINE 2 MG/ML SYR ONE (12:58)
[2021-02-16 13:10] LABS: SARS-COV-2 RT PCR NEGATIVE (NEGATIVE)
--- NOTE | 2021-02-16 13:25 | ER ---
Nurse's Notes [facility] Name: Tita Elizabeth Age: 55 yrs Sex: Female : 1965 Arrival Date: 02/16/2021 Time: 09:38 Bed 5 Private MD: Diagnosis: Viral infection of unspecified site;Headache;Cough;Chest pain, unspecified Presentation: 02/16 09:49 Chief complaint: Patient states: [place], cough/congestion, N/V/D, body aches for 3-4 days. ll1 Reports cramping to feet and abdomen for several months. Problem with her ears for 2 weeks. No known fever. Coronavirus screen: Client denies travel out of the [place] in the last 14 days. congestion, cough unrelated to allergies, diarrhea, fatigue, headache, muscle pain, nausea, shortness of breath, vomiting. Client presents with at least one sign or symptom that may indicate coronavirus-19. Standard/surgical mask placed on the client. Ebola Screen: Patient denies travel to an Ebola-affected area in the 21 days before illness onset. Initial Sepsis Screen: Does the patient meet any 2 criteria? No. Patient's initial sepsis screen is negative. Does the patient have a suspected source of infection? Yes: Productive cough/pneumonia. Risk Assessment: Do you want to hurt yourself or someone else? Patient reports no desire to harm self or others. Onset of symptoms was February 13, 2021. 09:49 Method Of Arrival: Ambulatory 1 09:49 Acuity: JAY 3 ll1 Triage Assessment: 10:00 Headache History: The patient has had previous headaches and this one is similar to bp previous episodes. General: Appears in no apparent distress. uncomfortable, Behavior is cooperative, appropriate for age, anxious. Pain: Complains of pain in head Pain currently is 6 out of 10 on a pain scale. Pain began WEEKS AGO Also complains of nausea. EENT: No deficits noted. Neuro: Level of Consciousness is awake, alert, obeys commands, Oriented to Appropriate for age. Cardiovascular: Rhythm is sinus rhythm. Respiratory: No deficits noted. GI: Reports nausea, vomiting. : No signs and/or symptoms were reported regarding the genitourinary system. Derm: No deficits noted. Musculoskeletal: No deficits noted. Historical: - Allergies: 09:49 Sulfa (Sulfonamide Antibiotics); ll1 - PMHx: 09:49 Arthritis; chron's; Hypertension; immune disorder; lyme disease; ll1 - PSHx: 09:49 Bladder sling; Hysterectomy; Bunionectomy; Appendectomy; Tonsillectomy; ll1 - Immunization history:: Flu vaccine is not up to date. - Social history:: Smoking status: Patient reports the use of cigarette tobacco products, smokes one-half pack cigarettes per day. Screenin:59 Abuse screen: Denies threats or abuse. Denies injuries from another. Nutritional jl7 screening: No deficits noted. Tuberculosis screening: No symptoms or risk factors identified. 10:26 Fall Risk IV access (20 points). Total Pizarro Fall Scale indicates No Risk (0-24 pts). jl7 Assessment: 10:04 Reassessment: VO for cardiac workup and 4 mg Zofran IVP. jl7 10:26 General: Appears in no apparent distress. uncomfortable, Behavior is calm, cooperative, jl7 appropriate for age, anxious. Pain: Complains of pain in [place] Pain currently is 7 out of 10 on a pain scale. Pain began 2-3 days ago. Is continuous. Neuro: Level of Consciousness is awake, alert, obeys commands, Oriented to person, place, time, situation, Moves all extremities. Full function Gait is steady, Speech is normal. Cardiovascular: Patient's skin is warm and dry. Rhythm is regular. Respiratory: Reports cough that is Airway is patent Respiratory effort is even, unlabored, Respiratory pattern is regular, symmetrical. GI: Abdomen is non-distended, Reports diarrhea, nausea, vomiting. Derm: Skin is pink, warm \\T\\ dry. 11:30 Reassessment: Patient appears in no apparent distress at this time. No changes from jl7 previously documented assessment. Patient and/or family updated on plan of care and expected duration. Pain level reassessed. Patient is alert, oriented x 3, equal unlabored respirations, skin warm/dry/pink. 13:30 Reassessment: Patient appears in no apparent distress at this time. No changes from ld1 previously documented assessment. Patient and/or family updated on plan of care and expected duration. Pain level reassessed. Patient is alert, oriented x 3, equal unlabored respirations, skin warm/dry/pink. Patient denies pain at this time. Vital Signs: 09:49 BP 167 / 92; Pulse 69; Resp 17; Temp 98.3; Pulse Ox 97% on R/A; Weight 54.43 kg; Height ll1 5 ft. 3 in. (160.02 cm); Pain 7/10; 09:59 BP 162 / 96; Pulse 71; Resp 15; Pulse Ox 99% ; jl7 10:29 BP 158 / 90; Pulse 64; Resp 15; Pulse Ox 96% ; jl7 12:11 BP 155 / 82; Pulse 67; Resp 15; Pulse Ox 97% ; jl7 13:30 BP 146 / 80; Pulse 66; Resp 18; Pulse Ox 100% on R/A; ld1 09:49 Body Mass Index 21.26 (54.43 kg, 160.02 cm) ll1 ED Course: 09:38 Patient arrived in ED. as 09:48 Arm band placed on Patient placed in an exam room, on a stretcher. ll1 09:51 Michael Leonard, DALJIT is Primary Nurse. bp 09:51 Triage completed. ll1 09:57 Santiago Wang MD is Attending Physician. kdr 09:59 Patient has correct armband on for positive identification. Placed in gown. Bed in low jl7 position. Call light in reach. Side rails up X 1. media monitor on. Pulse ox on. NIBP on. 10:26 Initial lab(s) drawn, by me, sent to lab. EKG done, by ED staff, reviewed by Santiago Wang MD. Inserted saline lock: 20 gauge in right antecubital area, using aseptic technique. Blood collected. 11:56 Aron Carlson RN is Primary Nurse. jl7 12:27 Flu Sent. ld1 12:27 COVID-19 : Document "Date of Symptom Onset" if Symptomatic. Sent. ld1 13:48 No provider procedures requiring assistance completed. IV discontinued, intact, ld1 bleeding controlled, No redness/swelling at site. Administered Medications: 10:25 Drug: Zofran (Ondansetron) 4 mg Route: IVP; Site: right antecubital; jl7 11:55 Follow up: Response: No adverse reaction; Nausea is decreased jl7 11:00 Drug: NS 0.9% 500 ml Route: IV; Rate: bolus; Site: right antecubital; bp 11:53 Follow up: Response: No adverse reaction; IV Status: Completed infusion; IV Intake: jl7 500ml 11:57 Drug: TORadol - (ketorolac) 15 mg Route: IVP; Site: right antecubital; bp 12:24 Follow up: Response: No adverse reaction ld1 12:40 Drug: morphine 2 mg Route: IVP; Site: right antecubital; ld1 12:41 Drug: Zofran (Ondansetron) 4 mg Route: IVP; Site: right antecubital; ld1 Intake: 11:53 IV: 500ml; Total: 500ml. jl7 Outcome: 13:24 Discharge ordered by . kdr 13:48 Discharged to home ambulatory. ld1 13:48 Condition: stable 13:48 Discharge instructions given to patient, Instructed on discharge instructions, follow up and referral plans. medication usage, Demonstrated understanding of instructions, follow-up care, medications. 13:48 Patient left the ED. ld1 Signatures: Santiago Wang MD MD kdr Martinez, Amelia as Leal, Jahala RN RN jl7 Michael Leonard, DALJIT RN bp Lora Doll RN RN ll1 Carla Alanis RN RN ld1
--- NOTE | 2021-02-16 13:25 | EDPHYS ---
Physician Documentation [facility] Name: Tita Elizabeth Age: 55 yrs Sex: Female : 1965 Arrival Date: 02/16/2021 Time: 09:38 Bed 5 Private MD: ED Physician Santiago Wang HPI: 02/16 10:32 This 55 yrs old Female presents to ER via Ambulatory with complaints of kdr Headache, Congestion, Cough, Chest Tightness. Historical: - Allergies: 09:49 Sulfa (Sulfonamide Antibiotics); ll1 - PMHx: 09:49 Arthritis; chron's; Hypertension; immune disorder; lyme disease; ll1 - PSHx: 09:49 Bladder sling; Hysterectomy; Bunionectomy; Appendectomy; Tonsillectomy; ll1 - Immunization history:: Flu vaccine is not up to date. - Social history:: Smoking status: Patient reports the use of cigarette tobacco products, smokes one-half pack cigarettes per day. ROS: 10:32 Constitutional: Negative for fever, chills, and weight loss - general myalgia and kdr cramping with n/v/d for several days, Eyes: Negative for injury, pain, redness, and discharge, ENT: Negative for injury, pain, and discharge, Neck: Negative for injury, pain, and swelling, Cardiovascular: Negative for chest pain, palpitations, and edema, Respiratory: Negative for shortness of breath, cough, wheezing, and pleuritic chest pain, Abdomen/GI: Negative for abdominal pain, nausea, vomiting, diarrhea, and constipation, Back: Negative for injury and pain, : Negative for injury, bleeding, discharge, and swelling, MS/Extremity: Negative for injury and deformity, Skin: Negative for injury, rash, and discoloration, Neuro: Negative for weakness, numbness, tingling, and seizure activity. Psych: Negative for depression, anxiety, suicide ideation, homicidal ideation, and hallucinations, Allergy/Immunology: Negative for hives, rash, and allergies, Endocrine: Negative for neck swelling, polydipsia, polyuria, polyphagia, and marked weight changes, Hematologic/Lymphatic: Negative for swollen nodes, abnormal bleeding, and unusual bruising. 10:32 Abdomen/GI: Positive for Abdominal cramps. 10:32 Neuro: Positive for headache, weakness, Generalized cramps and aches, Negative for dizziness, hearing loss, loss of consciousness, seizure activity, speech changes, syncope. Exam: 10:31 ECG was reviewed by the Attending Physician. kdr 15:10 Constitutional: This is a well developed, well nourished patient who is awake, alert, kdr and in no acute distress. Head/Face: Normocephalic, atraumatic. Eyes: Pupils equal round and reactive to light, extra-ocular motions intact. Lids and lashes normal. Conjunctiva and sclera are non-icteric and not injected. Cornea within normal limits. Periorbital areas with no swelling, redness, or edema. Neck: Trachea midline, no thyromegaly or masses palpated, and no cervical lymphadenopathy. Supple, full range of motion without nuchal rigidity, or vertebral point tenderness. No Meningismus. Chest/axilla: Normal chest wall appearance and motion. Nontender with no deformity. No lesions are appreciated. Cardiovascular: Regular rate and rhythm with a normal S1 and S2. No gallops, murmurs, or rubs. Normal PMI, no JVD. No pulse deficits. Abdomen/GI: Soft, non-tender, with normal bowel sounds. No distension or tympany. No guarding or rebound. No evidence of tenderness throughout. Back: No spinal tenderness. No costovertebral tenderness. Full range of motion. Skin: Warm, dry with normal turgor. Normal color with no rashes, no lesions, and no evidence of cellulitis. MS/ Extremity: Pulses equal, no cyanosis. Neurovascular intact. Full, normal range of motion. Neuro: Awake and alert, GCS 15, oriented to person, place, time, and situation. Cranial nerves II-XII grossly intact. Motor strength 5/5 in all extremities. Sensory grossly intact. Cerebellar exam normal. Normal gait. Psych: Awake, alert, with orientation to person, place and time. Behavior, mood, and affect are within normal limits. 15:10 ENT: Congestion. Vital Signs: 09:49 BP 167 / 92; Pulse 69; Resp 17; Temp 98.3; Pulse Ox 97% on R/A; Weight 54.43 kg; Height ll1 5 ft. 3 in. (160.02 cm); Pain 7/10; 09:59 BP 162 / 96; Pulse 71; Resp 15; Pulse Ox 99% ; jl7 10:29 BP 158 / 90; Pulse 64; Resp 15; Pulse Ox 96% ; jl7 12:11 BP 155 / 82; Pulse 67; Resp 15; Pulse Ox 97% ; jl7 13:30 BP 146 / 80; Pulse 66; Resp 18; Pulse Ox 100% on R/A; ld1 09:49 Body Mass Index 21.26 (54.43 kg, 160.02 cm) ll1 MDM: 13:24 Patient medically screened. kdr 15:10 Data reviewed: vital signs, nurses notes, lab test result(s), radiologic studies. kdr Counseling: I had a detailed discussion with the patient and/or guardian regarding: the historical points, exam findings, and any diagnostic results supporting the discharge/admit diagnosis, lab results, radiology results, the need for outpatient follow up. Response to treatment: the patient's symptoms have markedly improved after treatment, patient is well hydrated. Special discussion: I discussed with the patient/guardian in detail that at this point there is no indication for admission to the hospital. It is understood, however, that if the symptoms persist or worsen the patient needs to return immediately for re-evaluation. 02/16 10:04 Order name: Basic Metabolic Panel [facility] 02/16 10:04 Order name: CBC with Diff [facility] 02/16 10:04 Order name: LFT's [facility] 02/16 10:04 Order name: Magnesium [facility] 02/16 10:04 Order name: NT PRO-BNP [facility] 02/16 10:04 Order name: PT-INR [facility] 02/16 10:04 Order name: Troponin (emerg Dept Use Only) [facility] 02/16 10:49 Order name: CBC with Automated Diff; Complete Time: 10:51 EDMS 02/16 10:51 Order name: Protime (+INR); Complete Time: 11:49 EDMS 02/16 10:54 Order name: Basic Metabolic Panel; Complete Time: 11:49 EDMS 02/16 10:54 Order name: Liver (Hepatic) Function; Complete Time: 11:49 EDMS 02/16 10:54 Order name: Troponin (Emerg Dept Use Only); Complete Time: 11:49 EDMS 02/16 10:54 Order name: NT PRO-BNP; Complete Time: 11:49 EDMS 02/16 10:54 Order name: Magnesium; Complete Time: 11:49 EDMS 02/16 10:04 Order name: XRAY Chest (1 view) [facility] 02/16 10:04 Order name: EKG; Complete Time: 10:05 [facility] 02/16 10:04 Order name: Cardiac monitoring; Complete Time: 10: [facility] 02/16 10:40 Order name: RAD; Complete Time: 10:51 [facility] 02/16 12:07 Order name: Flu [facility] 02/16 12:07 Order name: COVID-19 : Document "Date of Symptom Onset" if Symptomatic. [facility] 02/16 12:21 Order name: CT Head Brain wo Cont [facility] 02/16 12:28 Order name: CORONAVIRUS EDWI 02/16 12:28 Order name: Influenza Screen (A [facility] 02/16 12:42 Order name: CT; Complete Time: 13:19 [facility] 02/16 13:10 Order name: COVID-19/FLU A+B; Complete Time: 13:19 [facility] 02/16 10:04 Order name: EKG - Nurse/Tech; Complete Time: 10: [facility] 02/16 10:04 Order name: IV Saline Lock; Complete Time: 10: [facility] 02/16 10:04 Order name: Labs collected and sent; Complete Time: : [facility] 02/16 10:04 Order name: O2 Per Protocol; Complete Time: : [facility] 02/16 10:04 Order name: O2 Sat Monitoring; Complete Time: : EC:31 Rate is 57 beats/min. Rhythm is regular, Sinus bradycardia with No ectopy, Right bundle kdr branch block. QRS [place] is Normal. Right axis deviation noted. MO interval is normal. QRS interval is normal. QT interval is normal. Clinical impression: NSR w/ Non-specific ST/T Changes and Sinus bradycardia. Administered Medications: 10:25 Drug: Zofran (Ondansetron) 4 mg Route: IVP; Site: right antecubital; jl7 11:55 Follow up: Response: No adverse reaction; Nausea is decreased jl7 11:00 Drug: NS 0.9% 500 ml Route: IV; Rate: bolus; Site: right antecubital; bp 11:53 Follow up: Response: No adverse reaction; IV Status: Completed infusion; IV Intake: jl7 500ml 11:57 Drug: TORadol - (ketorolac) 15 mg Route: IVP; Site: right antecubital; bp 12:24 Follow up: Response: No adverse reaction ld1 12:40 Drug: morphine 2 mg Route: IVP; Site: right antecubital; ld1 12:41 Drug: Zofran (Ondansetron) 4 mg Route: IVP; Site: right antecubital; ld1 Disposition: 02/16/21 13:24 Discharged to Home. Impression: Viral infection of unspecified site, Headache, Cough, Chest pain, unspecified. - Condition is Stable. - Discharge Instructions: General Headache Without Cause, Nonspecific Chest Pain, [id number], Cough, Adult, [id number], Viral Respiratory Infection, [id number]. - Prescriptions for Tramadol 50 mg Oral Tablet - take 1 tablet by ORAL route every 8 hours as needed; 12 tablet. - Medication Reconciliation Form, Thank You Letter form. - Follow up: Private Physician; When: 2 - 3 days; Reason: If symptoms return, Further diagnostic work-up, Recheck today's complaints, Continuance of care, Re-evaluation by your physician. - Problem is new. - Symptoms have improved. Signatures: Dispatcher [employer] EDMS Santiago Wang MD MD kdr Roszak, Josh, PA PA [id number] Aron Carlson RN RN jl7 Michael Leonard RN RN bp Lora Doll RN RN ll1 Carla Alanis RN RN ld1 Corrections: (The following items were deleted from the chart) 13:48 13:24 02/16/2021 13:24 Discharged to Home. Impression: Viral infection of unspecified ld1 site; Headache; Cough; Chest pain, unspecified. Condition is Stable. Forms are Medication Reconciliation Form, Thank You Letter, Antibiotic Education, Prescription Opioid Use. Follow up: Private Physician; When: 2 - 3 days; Reason: If symptoms return, Further diagnostic work-up, Recheck today's complaints, Continuance of care, Re-evaluation by your physician. Problem is new. Symptoms have improved. kdr
[2021-02-16 14:04] VITALS: TEMP 98.3
[2021-02-16 14:10] VITALS: BP 146/80; O2SAT 100
--- NOTE | 2021-02-17 16:32 | EKG ---
Test Date: 2021-02-16 Test Time: 10:20:27 Director Of Campus Recreation: SHANTE MEASUREMENT RESULTS: Intervals: Rate: 57 CO: 128 QRSD: 142 QT: 474 QTc: 461 [place]: P: 28 CO: 128 QRS: -8 T: 32 INTERPRETIVE STATEMENTS: Sinus bradycardia Right bundle branch block Abnormal ECG Compared to ECG 09/16/2020 08:25:01 Sinus rhythm no longer present Electronically Signed On 02-17-21 16:29:55 CDT by Matt Vergara
== END 2021-02-16 13:48 | disposition home or self-care (01) ==
LOC: ER 09:36
DX: B34.9 Viral infection, unspecified (principal); R05 Cough; R07.9 Chest pain, unspecified; I10 Essential (primary) hypertension; F17.210 Nicotine dependence, cigarettes, uncomplicated; Z20.822 Contact with and (suspected) exposure to COVID-19; Z88.2 Allergy status to sulfonamides
CPT/HCPCS: 85025; 80048; 36415; 83735; 85610; 80076; 84484; 83880; 0240U; 70450; 71045; J2270; J7040; J2405 ×2; 93005; 96361; 96374; 96375; 99284

== ENCOUNTER 2021-02-22 07:06 | Emergency (ER) | payer OTHER ==
--- OUTSIDE RECORDS SUMMARY | 2021-02-22 07:11 | XMS REPORT | Continuity of Care Document ---
:1965 Author Organization [facility] t Address [address] [place] [address] Care Team Providers Name Role Phone Gaurav [...] Memoria ANGIOGRAM 05-06 13:44:00 l DX: 00:00: [place] RENAL 00 ANGIOGRAM Active 05/06/2014 [facility] BOWEL Diagnosis Active 2014-01-07 [facility] oria OBSTRUCTIO 12-30 21:50:00 l N BOWEL 00:00: [place] OBSTRUCTIO 00 N Active 12/30/2013 [facility] 795.79 Diagnosis Active 2000-2015-01-05 Mem oria V82.2 - 10:04:00 l 724.2 795.79 00:00: [place] 719.43 V82.2 00 726.31 724.2 719.43 726.31 Active 08/28/2000 [facility] Crohn's Problem Resolve 2015-02-07 Mem oria disease d 00:48:36 l (disorder) Crohn's Her giles disease (disorder) Resolved Problem 02/07/2015 J CARLOS Morin, [place], [facility] Hyperchole Problem Active 2015-02-07 M emoria sterolemia 00:48:36 l (disorder) Moncho n Hyperchole sterolemia (disorder) Active Problem 02/07/2015 J CARLOS Morin,[facility] Hypertensi Problem Active 2015-02-07 M emoria ve 00:48:36 l disorder, [place] systemic Hypertensi arterial ve (disorder) disorder, systemic arterial (disorder) Active Problem 02/07/2015 J CARLOS Morin,[facility] Sleep Problem Active 2015-02-07 Memor ia apnea 00:48:36 l (finding) Sleep Moncho n apnea (finding) Active Problem 02/07/2015 J CARLOS Morin,[facility] INTESTINAL Diagnosis Active 2014-01-07 Memoria OBSTRUCT 21:50:00 l NOS [place] INTESTINAL OBSTRUCT NOS Active [facility] Allergies, Adverse Reactions, Alerts Allergy Allergy [...] to drug NKFA NKFA Active Memoria l [place] sulfa sulfa Active Memoria drugs drugs l [place] Social History Social Habit Start Date Stop Date Quantity Comments Source Tobacco use and 2018-04-13 2018-04-13 Never used [facility] ethodist exposure 00:00:00 00:00:00 Alcohol intake 2018-04-13 2018-04-13 Current [facility] thodist 00:00:00 00:00:00 non-drinker of alcohol (finding) Social History 2013-12-30 2013-12-30 [facility] Aundrea ermann 13:29:20 13:29:20 Sex [birth year] At [birth year] Onel frederick 00:00:00 00:00:00 Smoking Status Start Date Stop Date Source Current every day smoker 2018-04-13 00:00:00 Vivian merrill Rastafari Medications Ordered Filled Start Stop Current Ordering [...] 18:26: nightly. st 50 metoprolol Yes 25mg [id number] Take 25 mg Sykes tartrate 6-19 [id number] by mouth 3 Methodi (LOPRESSOR) 18:26: 3D (three) st 25 mg 50 times a tablet day. Note: Rx label states BID but pt takes TID. Ativan No Notes: Memoria 05-20 (Same as: l 14:26: Ativan) [place] 00 Acetaminoph No Notes: Do M emoria [...] Memoria 5-07 Tablet l 12:30: should not [place] 00 be chewed or crushed. (Same as: Protonix) Dicyclomine No Notes: Mau agata 5-07 (Same as: l 04:30: Bentyl) [place] Trazodone No Notes: Memori a Hydrochlori 5-07 (Same As: l de 100 MG 02:00: Desyrel) Herm booker Oral Tablet 00 Zocor No Notes: Memoria 5-07 (Same as: l 02:00: Zocor) [place] Ditropan XL No Notes: Mau agata 5-07 (Same as: l 02:00: Ditropan [place] XL) "Do Not Crush" Pamelor No Notes: Memoria 5-07 (Same l 02:00: as:Pamelor [place] 00 , Aventyl) metoprolol No Notes: Memor ia tartrate 5-07 (Same as: l 02:00: Lopressor) [place] Pentasa No Notes: Memoria 5-06 (Same as: l 22:00: Pentasa) [place] 00 Do not open capsule. "Do Not Crush" Ketorolac No 4 days. Mau agata Tromethamin 5-06 l e 15 MG/ML 12:43: [place] Injectable 00 Solution Nicotine No Notes: Memoria [...] PO, l 3 MG 11:54: Daily, # [place] Extended 00 90 cap, 0 Release Refill(s) [...] 4 cap, l Extended 11:54: BID, 0 [place] Release 00 Refill(s) Capsule [Pentasa] sertraline Yes [...] 0 Memoria Bicarbonate 5-05 Refill(s) l 11:54: [place] 00 methocarbam Yes 750 mg = 1 [...] Memoria 5-05 (Same as: l 09:00: Lovenox) [place] 00 normal No 1,000 mL, Cheori a saline 0.9% 12-30 Rate: 100 l IV 1,000 mL 08:52: ml/hr, Herm booker Infuse over: 10 hr, Route: IV, Dosing Weight 71.818 kg, Total Volume: 1,000, Start date: 12/30/13 3:52:00, Duration: 30 day, Stop date: 01/29/14 3:51:00 Immunizations Ordered Immunization Filled Immunization Date Status Commen ts Source Name Name Tdap 2018-04-13 [facility] 00:00:00 Rastafari Vital Signs Vital Name Observation Time Observation Value Comments Source Weight 2014-05-16 14:54:00 [facility] [place] BMI Calculated 2014-05-16 14:54:00 Memori al [place] Height 2014-05-16 14:54:00 160.02 cm [facility] [place] Respitory Rate 2014-01-02 20:58:00 Memori al [place] Heart Rate 2014-01-02 20:58:00 [facility] [place] Temperature Oral (F) 2014-01-02 20:58:00 98.4 F [facility] [place] Diastolic (mm Hg) 2014-01-02 20:58:00 Mem orial [place] Systolic (mm Hg) 2014-01-02 20:58:00 Mau rial [place] Temperature Oral (F) 2014-01-02 16:23:00 98.2 F [facility] [place] Heart Rate 2014-01-02 16:23:00 [facility] [place] Respitory Rate 2014-01-02 16:23:00 Memori al [place] Systolic (mm Hg) 2014-01-02 16:23:00 Mau rial [place] Diastolic (mm Hg) 2014-01-02 16:23:00 Mem orial [place] Diastolic (mm Hg) 2014-01-02 12:20:00 Mem orial [place] Systolic (mm Hg) 2014-01-02 12:20:00 Mau rial [place] Respitory Rate 2014-01-02 12:20:00 Memori al [place] Temperature Oral (F) 2014-01-02 12:20:00 98.5 F [facility] [place] Heart Rate 2014-01-02 12:20:00 [facility] [place] Weight 2013-12-30 08:54:00 [facility] [place] Height 2013-12-30 08:54:00 162.56 cm [facility] [place] BMI Calculated 2013-12-30 08:54:00 Memori al [place] Weight 2013-12-30 08:52:00 [facility] [place] BMI Calculated 2013-12-30 08:52:00 Memori al [place] Height 2013-12-30 08:52:00 162.56 cm [facility] [place] Weight 2013-12-30 08:40:00 [facility] [place] BMI Calculated 2013-12-30 08:40:00 Memori al [place] Height 2013-12-30 08:40:00 162.56 cm [facility] [place] Procedures Procedure Date / Time Performed Performing Clinician [facility] e Abdominal [facility] [place] Abdominal hysterectomy [facility] [place] [facility], [facility] Appendectomy [facility] [place] [facility] mesenteric [facility] Her giles angiography Suspension of bladder [facility] ermann Tonsillectomy [facility] Bladder augmentation [facility] Plan of Care Planned Activity Planned Date Details Comments Source Future Scheduled 2021-05-28 IMM Influenza Magdiel Savage lt Test 00:00:00 Seasonal May to October (>/= 19 yrs) [code = IMM Influenza Seasonal May to October (>/= 19 yrs)] Future Scheduled 2021-03-28 INFLUENZA VACCINE [place] [facility] Test 00:00:00 [code = INFLUENZA VACCINE] Future Scheduled 2017-07-28 BREAST CANCER [facility] thodist Test 00:00:00 SCREENING [code = BREAST CANCER SCREENING] Future Scheduled 2013 Screening for Magdiel Savage lt Test 00:00:00 malignant neoplasm of colon (procedure) [code = 781422969] Future Scheduled 2013 COLONOSCOPY SCREENING [place] [facility]ast[facility]ari Test 00:00:00 [code = COLONOSCOPY SCREENING] Future Scheduled 2013 SHINGLES VACCINES [place] [facility] Test 00:00:00 (#1) [code = SHINGLES VACCINES (#1)] Future Scheduled 2003 Breast Cancer Scrn [facility] Test 00:00:00 (Yearly) [code = Breast Cancer Scrn (Yearly)] Future Scheduled 1993 Screening for Magdiel Savage lt Test 00:00:00 malignant neoplasm of cervix (procedure) [code = 963075591] Future Scheduled 1993 Screening for Magdiel Savage lt Test 00:00:00 malignant neoplasm of cervix (procedure) [code = 595494541] Future Scheduled 1984-02-27 Screening for [facility] thodist Test 00:00:00 malignant neoplasm of cervix (procedure) [code = 482966735] Future Scheduled 1981 Hepatitis C screening [place] [facility]ast[facility]ari Test 00:00:00 (procedure) [code = 089502488] Future Scheduled 1975 COVID-19 Vaccine (1) [facility] 00:00:00 [code = COVID-19 Vaccine (1)] Future Scheduled 1975 COVID-19 VACCINE (1) [place]ian ston Rastafari Test 00:00:00 [code = COVID-19 VACCINE (1)] Encounters Start End Encounter Admission Attending Care Care Encounter Source Date/Time Date/Time Type Type Clinicians Facility Department ID 2020-07-02 2020-07-02 Emergency , [facility] [id number] 14:38:00 16:16:00 Elier Chris [id number] [place] [id number] [place] [id number] 2020-04-29 2020-04-29 Emergency Luana, [facility] [id number] 12:18:00 15:08:00 Zoraida Chris [id number] [place] [id number] [place] [address] [id number] 2020-03-17 2020-03-17 Emergency Chao, [facility] [id number] 11:37:56 13:51:00 Elier Chris [id number] [place] [id number] [place] [address] [id number] 2020-03-17 2020-03-17 Orders Doctor LUCIANO [id number] 00:00:00 00:00:00 Only Unassigned, JUANCARLOS [id number] [place] [facility] [id number] 2018-12-10 2018-12-10 Outpatient [facility] [id number] Magdiel 16:03:58 16:03:58 [facility] 2018-12-10 2018-12-10 Emergency [facility] [id number] Magdiel 11:20:39 11:20:39 Health 2017-09-01 2017-09-01 Emergency [facility] [id number] Magdiel 10:29:00 10:29:00 [facility] 2015-02-04 2015-02-04 Outpatient Ashish [facility] [id number] 08:00:00 23:59:00 Julian Zheng 2015-01-05 2015-01-05 Outpatient Marilee [facility] [id number] 10:04:00 23:59:00 Rupesh de la cruz 2014-05-20 2014-05-20 Outpatient Tito [facility] [id number] 06:14:00 14:30:00 Larry Woodson 2013-12-30 2014-01-02 Outpatient Taurus [facility] [id number] 02:50:00 22:00:00 Rivera 25 Results Test Description [...] code = MCH) 35.5 pg 27.0-31.0 [facility] YeebgljFFMVNGFPMR7678-62-47 14:26:0013.3[facility] HermannHEMATOLOGY 2014-05-19 14:26:0037.9[facility] EgodtkyUMIHNFKUGQ9635-32-84 14:26:003.73[facility] WetuixeHEEEHSENEU6053-21-03 14:26:006.1[facility] IalxelnMCETJHVRQY6383-83-45 14:26:008.0[facility] ObrgkhaCPQDHMHBOQ0372-11-06 14:26:0017.2[facility] [place] DYGXWATVRB4188-26-04 14:26:10663Nargvtqf RptjelpJHLIVZMDPD8711-17-30 14:26:00 35.0[facility] IrltzbfBWDHZLGAFD0195-56-12 14:26:000.93[facility] HermannHEMATOLOGY 2014-05-19 14:26:00 Test Item Value Reference Range Interpretation Comments PT (test code = PT) 12.4 s 12.0-14.7 Memorial KehshmgAEKMXLRZCM3558-21-24 09:42:004.4[facility] HermannHEMATOLOGY 2014-01-01 09:42:003.80[facility] ExanvirAFDZEIXNSF3477-83-89 09:42:00 Test Item Value Reference Range Interpretation Comments MCH (test code = MCH) 31.1 pg 27.0-31.0 Memorial WwplrofMSYGRKSDYH7837-27-80 09:42:0011.8[facility] HermannHEMATOLOGY 2014-01-01 09:42:0034.5[facility] VwkigfmKLURDDLRZB3444-31-30 09:42:0090.6[facility] WhpmqznGVQGEIAWGT8624-60-71 09:42:0016.3[facility] VxicanwEZPTZSYEZG9788-75-30 09:42:0034.3[facility] CmdfcheOKCBIYSGFN3403-90-47 09:42:09182Unniiakn [place] XXZFTEMNOO1707-15-70 09:42:007.9[facility] XtgsopvJNBZJLJZVB8193-69-90 09:42:001.6 Memorial PzbyjlnQABDDYGVRH4128-82-87 09:42:000.2[facility] HermannHEMATOLOGY 2014-01-01 09:42:002.6[facility] DojjxzcYRIUAKKTDZ8484-90-88 09:42:007.4[facility] KlrzudvZYHHXPGQZN7440-65-77 09:42:001.3[facility] EbkzamgMWZCZMHXPM4579-91-68 09:42:000.3[facility] SkvgrmlASLMOXPWLP2675-40-85 09:42:000.1[facility] [place] TWBHJTIFAJ6623-40-09 09:42:000.0[facility] KgpplglMKQPLZELAG5563-29-90 09:42:00 30.7[facility] RhslcayDGBDUJWBUF8593-31-01 09:42:0060.1[facility] HermannCHEM PANEL 2014-01-01 09:42:002.0[facility] HermannCHEM LHZWX5004-42-62 09:42:58805Rtpswrba HermannCHEM NUSPZ1156-96-14 09:42:004[facility] HermannCHEM URASS1334-64-16 09:42:003.8[facility] HermannCHEM TNACN9847-85-98 09:42:000.5[facility] HermannCHEM WTMRC1831-09-60 09:42:0094[facility] HermannCHEM XUZIQ5212-51-16 09:42:65882 [facility] HermannCHEM TOTEH4047-60-77 09:42:008.7[facility] HermannCHEM PANEL 2014-01-01 09:42:11783Hhvwloxp HermannCHEM UMXHI3894-84-81 09:42:0030[facility] HermannCHEM SUZTB8227-43-79 09:42:0010.8[facility] HermannCHEM OVQKH4860-92-67 12:13:001.8[facility] HermannCHEM MDXFE1780-53-32 12:13:002.6[facility] HermannCHEM FMFKG4986-30-18 12:13:002.8[facility] HermannCHEM PJUFE0799-11-38 12:13:001.2 [facility] HermannCHEM RSHTO0105-12-38 12:13:0010[facility] HermannCHEM PANEL 2013-12-30 12:13:006.9[facility] HermannCHEM CACFK5134-93-14 12:13:29002Dmlskktt HermannCHEM JOMJX1020-55-37 12:13:0084[facility] HermannCHEM PPYAU6015-12-34 12:13:003.9[facility] HermannCHEM GODUC8814-75-93 12:13:70316Oxyrdivp HermannCHEM QIWIN6386-10-59 12:13:000.7[facility] HermannCHEM BOYMM4904-67-24 12:13:007 [facility] HermannCHEM KENWR3457-92-04 12:13:000.3[facility] HermannCHEM PANEL 2013-12-30 12:13:0071[facility] HermannCHEM ZIALF6204-05-57 12:13:0021[facility] HermannCHEM URAVY6833-97-41 12:13:0020[facility] HermannCHEM JFKLP2692-14-92 12:13:006.1[facility] HermannCHEM SPQRK2611-05-19 12:13:0033[facility] HermannCHEM TZIXC7047-22-22 12:13:003.3[facility] HermannCHEM LHHPZ1423-59-11 12:13:008.4 [facility] HermannCHEM WKWQL1941-91-67 12:13:75214Oihftgdd HermannHEMATOLOGY 2013-12-30 12:13:000.0[facility]orial QribwydGWAQHPFSRO3831-72-96 12:13:0063.5[facility]orial HhuadszJXTYALPIBY7283-64-59 12:13:000.3[facility] KnfaoqeNJTYZTUVZB7769-82-59 12:13:000.2[facility] FwzqonxUUHSHKCMFX8759-08-67 12:13:001.5[facility] [place] NUIQMSELNN7971-83-87 12:13:003.3[facility] KyiqswxKYJAGZXIXQ5493-17-23 12:13:000.1 Memorial TwebkagHLUENNPZWL1600-77-91 12:13:0028.9[facility] HermannHEMATOLOGY 2013-12-30 12:13:006.2[facility] VtkszxiDYORWVSVII4832-29-22 12:13:001.2[facility] MmdwwrmOPSWPKBLSL0663-23-76 12:13:0034.3[facility] WkqxnekMHIKLSIYSK7877-70-59 12:13:0016.5[facility] AlockauUNGONVDKPE9167-16-20 12:13:00 Test Item Value Reference Range Interpretation Comments MCH (test code = MCH) 31.5 pg 27.0-31.0 Memorial SqkntteWMAPQKCLZU9859-26-29 12:13:0091.9[facility] HermannHEMATOLOGY 2013-12-30 12:13:56339Mprbpvdk AalrzqvFVJUCRCYOE2383-66-70 12:13:007.9[facility]orial JjkjfqyRLRRPKYQJQ5646-95-73 12:13:003.91[facility] MlewpqkIPYKGNKDLE2772-71-00 12:13:0035.9[facility] BondaevGQRUBKVJCN6351-98-69 12:13:0012.3[facility] [place] WGNRUSIYAT7444-81-94 12:13:005.1[facility] [place]
[2021-02-22 07:54] LABS: Absolute Lymphocytes (CBC) 1.6 K/uL (0.7-4.9); Basophils % 0.4 % (0-1.3); Hematocrit 37.9 % (36.0-45.0); Lymphocytes % 39.1 % (15.3-44.8); MPV 8.7 fL (7.6-11.3); RBC Red Blood Cell Count 3.96 M/uL (3.86-4.86)
[2021-02-22] MEDS ORDERED: ONDANSETRON 4 MG/2 ML VIAL ONE (08:05)
[2021-02-22] MEDS ORDERED: NA CHLORIDE 0.9% 1,000 ML ONE (08:05)
[2021-02-22] MEDS ORDERED: MORPHINE 4 MG/ML SYR ONE (08:05)
[2021-02-22 08:13] LABS: ALT/SGPT 90 U/L (12-78); AST/SGOT 59 U/L (15-37); Albumin 3.5 g/dL (3.4-5.0); Alkaline Phosphatase 94 U/L (45-117); BUN Blood Urea Nitrogen 9 mg/dL (7-18); Bicarbonate 29 mmol/L (21-32); Bilirubin Direct < 0.1 mg/dL (0-0.2); Bilirubin Total 0.4 mg/dL (0.2-1.0); Glucose Level 98 mg/dL (74-106); Lipase 241 U/L (73-393); Potassium 4.1 mmol/L (3.5-5.1); Protein, Total 6.7 g/dL (6.4-8.2); Sodium Level 141 mmol/L (136-145)
--- NOTE | 2021-02-22 08:48 | RAD REPORT ---
EXAM DESCRIPTION: CTAbdomen Pelvis W Contrast - 02/22/2021 8:17 am CLINICAL HISTORY: Abdominal pain. upper abd pain;Nausea / vomiting COMPARISON: Abdomen Pelvis W Contrast dated 02/15/2021; Abdomen Pelvis W Contrast dated 09/13/2018 ; Abdomen Pelvis W Contrast dated 10/18/2017Abdomen Pelvis W Contrast dated 09/16/2020 TECHNIQUE: Biphasic CT imaging of the abdomen and pelvis was performed with 100 ml non-ionic IV cont rast. All CT scans are performed using dose optimization technique as appropriate and may include automated exposure control or mA/KV adjustment according to patient size. FINDINGS: The lung bases are clear. The liver, spleen, pancreas, adrenal glands and kidneys are within normal limits. No bowel obstruction, free air, free fluid or abscess. Mild retained stool throughout the colon. The appendix is normal. Aortoiliac atherosclerosis. No evidence of significant lymphadenopathy. Mild to moderate lumbar degenerative changes with dextroscoliosis of the lumbar spine. Vertebroplasty cement is noted in the L2 vertebral body. IMPRESSION: No acute intra-abdominal or pelvic finding.
--- NOTE | 2021-02-22 08:52 | RAD REPORT ---
EXAM DESCRIPTION: US - Abdomen Exam Limited - 02/22/2021 7:55 am CLINICAL HISTORY: Nausea/vomiting;Abd pain COMPARISON: No comparisons FINDINGS: The gallbladder demonstrates no gallstones. No pericholecystic fluid or gallbladder wall t hickening. The common bile duct is normal measuring 5-6 mm. The liver demonstrates no findings of intrahepatic biliary dilatation. IMPRESSION: Unremarkable examination.
[2021-02-22] MEDS ORDERED: MEPERIDINE HCL 25 MG/ML SYR ONE (10:31)
--- NOTE | 2021-02-22 11:38 | EDPHYS ---
Physician Documentation [facility] Name: Tita Elizabeth Age: 55 yrs Sex: Female : 1965 Arrival Date: 02/22/2021 Time: 07:10 Bed 8 Private MD: Kamari Escalante V ED Physician Nicolas Tobar HPI: 02/22 07:59 This 55 yrs old Female presents to ER via Ambulatory with complaints of rn Vomiting/Diarrhea, Abdominal Pain. 07:59 The patient presents to the emergency department with nausea, vomiting, abdominal pain, rn of the epigastric area, described as achy, constant, and does not radiate. Onset: The symptoms/episode began/occurred last night. Possible causes: unknown. The symptoms are aggravated by nothing. The symptoms are alleviated by nothing. Associated signs and symptoms: Pertinent positives: abdominal pain, nausea, vomiting, Pertinent negatives: fever, GI bleeding. Severity of symptoms: At their worst the symptoms were mild in the emergency department the symptoms are unchanged. The patient has experienced similar episodes in the past. The patient has been recently seen by a physician:. Reports "going on for a while", but was doing ok, last night became constant, assoc with nausea/vomiting and upper abd pain. No fever. No blood in stool. Reports almost daily drinker, but no known hx of cirrhosis or pancreatitis. Told recently last week that had elevated liver enzymes.. Historical: - Allergies: 07:23 Sulfa (Sulfonamide Antibiotics); jd3 - PMHx: 07:23 Arthritis; chron's; Hypertension; immune disorder; lyme disease; jd3 - PSHx: 07:23 Bladder sling; Hysterectomy; Bunionectomy; Appendectomy; Tonsillectomy; jd3 - Immunization history:: Adult Immunizations up to date. - Social history:: Smoking status: Patient reports the use of cigarette tobacco products, smokes one-half pack cigarettes per day. - Family history:: not pertinent. - Hospitalizations: : No recent hospitalization is reported. ROS: 07:59 Constitutional: Negative for fever, chills, and weight loss, Eyes: Negative for injury, rn pain, redness, and discharge, Neck: Negative for injury, pain, and swelling, Cardiovascular: Negative for chest pain, palpitations, and edema, Respiratory: Negative for shortness of breath, cough, wheezing, and pleuritic chest pain, Abdomen/GI: Negative for diarrhea, and constipation, Back: Negative for injury and pain, : Negative for injury, bleeding, discharge, and swelling, MS/Extremity: Negative for injury and deformity, Skin: Negative for injury, rash, and discoloration, Neuro: Negative for headache, weakness, numbness, tingling, and seizure. Exam: 07:59 Constitutional: This is a well developed, well nourished patient who is awake, alert, rn and in no acute distress. Head/Face: Normocephalic, atraumatic. ENT: MMM Cardiovascular: Regular rate and rhythm. No pulse deficits. Respiratory: No increased work of breathing, no retractions or nasal flaring. Abdomen/GI: Soft, + tender RUQ and epigatric region. No masses Skin: Warm, dry MS/ Extremity: Pulses equal, no cyanosis. Neuro: Awake and alert, GCS 15 Vital Signs: 07:23 BP 158 / 82; Pulse 77; Resp 17 S; Temp 97.8(TE); Pulse Ox 99% on R/A; Weight 54.43 kg jd3 (R); Height 5 ft. 3 in. (160.02 cm) (R); Pain 8/10; 10:15 BP 149 / 89; Pulse 67; Resp 16; Pulse Ox 99% ; sv 11:28 Pain 5/10; sv 11:35 BP 172 / 79; Pulse 52; Resp 16; Pulse Ox 99% ; sv 07:23 Body Mass Index 21.26 (54.43 kg, 160.02 cm) jd3 MDM: 07:28 Patient medically screened. rn 11:36 Differential diagnosis: Nonspecific abd pain, gastritis, cholecystitis, pancreatitis, rn viral gastroenteritis, gastroenteritis. Data reviewed: vital signs, nurses notes, lab test result(s), radiologic studies, CT scan, and as a result, I will discharge patient. Counseling: I had a detailed discussion with the patient and/or guardian regarding: the historical points, exam findings, and any diagnostic results supporting the discharge/admit diagnosis, lab results, radiology results, the need for outpatient follow up, to return to the emergency department if symptoms worsen or persist or if there are any questions or concerns that arise at home. Response to treatment: the patient's symptoms have mildly improved after treatment, and as a result, I will discharge patient. Special discussion: I discussed with the patient/guardian in detail that at this point there is no indication for admission to the hospital. It is understood, however, that if the symptoms persist or worsen the patient needs to return immediately for re-evaluation. Based on the history and exam findings, there is no indication for further emergent testing or inpatient evaluation. I discussed with the patient/guardian the need to see the research leader for further evaluation of the symptoms. 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 . 02/22 07:36 Order name: Basic Metabolic Panel; Complete Time: 08:14 rn 02/22 07:36 Order name: CBC with Diff; Complete Time: 08:14 rn 02/22 07:36 Order name: Hepatic Function; Complete Time: 08:14 rn 02/22 07:36 Order name: Lipase; Complete Time: 08:14 rn 02/22 07:36 Order name: CT Abd/Pelvis - IV Contrast Only; Complete Time: 08:56 rn 02/22 08:36 Order name: CREATININE WHOLE BLOOD; Complete Time: 08:56 EDMS 02/22 07:36 Order name: IV Saline Lock; Complete Time: 07:49 rn 02/22 07:36 Order name: Labs collected and sent; Complete Time: 07:49 rn 02/22 07:36 Order name: US Abdomen Limited; Complete Time: 08:56 rn Administered Medications: 07:45 Drug: Zofran (Ondansetron) 4 mg Route: IVP; Site: right antecubital; sv 08:30 Follow up: Response: No adverse reaction sv 07:45 Drug: NS 0.9% 1000 ml Route: IV; Rate: 1000 ml; Site: right antecubital; sv 09:00 Follow up: Response: No adverse reaction; IV Status: Completed infusion; IV Intake: sv 1000ml 07:47 Drug: morphine 4 mg {Note: rass1.} Route: IVP; Site: right antecubital; sv 08:30 Follow up: Response: No adverse reaction; RASS: Alert and Calm (0) sv 10:19 Drug: Demerol (meperidine) 25 mg Route: IVP; Site: right antecubital; hb 11:28 Follow up: Pain 5/10 Adult; Response: No adverse reaction; Pain is decreased; RASS: sv Alert and Calm (0) Disposition: 02/22/21 11:38 Discharged to Home. Impression: Gastritis, unspecified, Alcohol abuse with other alcohol-induced disorders. - Condition is Stable. - Discharge Instructions: Alcohol Use Disorder, Gastritis, Adult. - Prescriptions for Zofran 4 mg Oral tablet - take 1 tablet by ORAL route every 8 hours As needed; 20 tablet. Protonix 40 mg Oral Tablet - take 1 tablet by ORAL route once daily; 30 tablet. - Medication Reconciliation Form, Thank You Letter, Antibiotic Education, Prescription Opioid Use form. - Follow up: Private Physician; When: As needed; Reason: Recheck today's complaints, Re-evaluation by your physician. - Problem is new. - Symptoms have improved. Signatures: Dispatcher [employer] Fatou Cooper RN RN sv Nieto, Roman, MD MD rn Baxter, Heather, RN RN hb Davies, Jonathon RN RN jd3 Corrections: (The following items were deleted from the chart) 11:49 11:38 02/22/2021 11:38 Discharged to Home. Impression: Gastritis, unspecified; Alcohol hb abuse with other alcohol-induced disorders. Condition is Stable. Forms are Medication Reconciliation Form, Thank You Letter, Antibiotic Education, Prescription Opioid Use. Follow up: Private Physician; When: As needed; Reason: Recheck today's complaints, Re-evaluation by your physician. Problem is new. Symptoms have improved. rn
--- NOTE | 2021-02-22 11:38 | ER ---
Nurse's Notes [facility] Name: Tita Elizabeth Age: 55 yrs Sex: Female : 1965 Arrival Date: 02/22/2021 Time: 07:10 Bed 8 Private MD: Kamari Escalante V Diagnosis: Gastritis, unspecified; Alcohol abuse with other alcohol-induced disorders Presentation: 02/22 07:20 Chief complaint: Patient states: "I have been having right sided stomach pain that has jd3 now spread all over my stomach. nausea and vomiting.". Coronavirus screen: At this time, the client does not indicate any symptoms associated with coronavirus-19. Ebola Screen: Patient negative for fever greater than or equal to 101.5 degrees Fahrenheit, and additional compatible Ebola Virus Disease symptoms. Initial Sepsis Screen: Does the patient meet any 2 criteria? No. Patient's initial sepsis screen is negative. Does the patient have a suspected source of infection? No. Patient's initial sepsis screen is negative. Risk Assessment: Do you want to hurt yourself or someone else? Patient reports no desire to harm self or others. Onset of symptoms was February 22, 2021. 07:20 Method Of Arrival: Ambulatory jd3 07:20 Acuity: JAY 3 jd3 Historical: - Allergies: 07:23 Sulfa (Sulfonamide Antibiotics); jd3 - PMHx: 07:23 Arthritis; chron's; Hypertension; immune disorder; lyme disease; jd3 - PSHx: 07:23 Bladder sling; Hysterectomy; Bunionectomy; Appendectomy; Tonsillectomy; jd3 - Immunization history:: Adult Immunizations up to date. - Social history:: Smoking status: Patient reports the use of cigarette tobacco products, smokes one-half pack cigarettes per day. - Family history:: not pertinent. - Hospitalizations: : No recent hospitalization is reported. Screenin:28 Abuse screen: Denies threats or abuse. Denies injuries from another. Nutritional sv screening: No deficits noted. Tuberculosis screening: No symptoms or risk factors identified. Fall Risk None identified. Assessment: 07:40 General: Appears in no apparent distress. uncomfortable, well groomed, well developed, sv Behavior is calm, cooperative, appropriate for age. Pain: Complains of pain in abdomen Pain currently is 8 out of 10 on a pain scale. Pain began last night Is continuous. Neuro: Level of Consciousness is awake, alert, obeys commands, Oriented to person, place, time, situation, Gait is steady. Respiratory: Respiratory effort is even, unlabored, Respiratory pattern is regular, symmetrical. GI: Abdomen is flat, Abd is soft X 4 quads Abdomen is tender to palpation X 4 quads. Reports lower abdominal pain, upper abdominal pain, nausea, vomiting. Derm: Skin is intact, Skin is pink, warm \\T\\ dry. 08:44 Reassessment: Patient appears in no apparent distress at this time. Patient and/or hb family updated on plan of care and expected duration. Pain level reassessed. Patient is alert, oriented x 3, equal unlabored respirations, skin warm/dry/pink. 10:19 Reassessment: Patient appears in no apparent distress at this time. Patient and/or sv family updated on plan of care and expected duration. Pain level reassessed. Patient is alert, oriented x 3, equal unlabored respirations, skin warm/dry/pink. 11:15 Reassessment: Patient appears in no apparent distress at this time. Patient and/or hb family updated on plan of care and expected duration. Pain level reassessed. Patient is alert, oriented x 3, equal unlabored respirations, skin warm/dry/pink. 11:49 Reassessment: Patient appears in no apparent distress at this time. Patient and/or sv family updated on plan of care and expected duration. Pain level reassessed. Patient is alert, oriented x 3, equal unlabored respirations, skin warm/dry/pink. Vital Signs: 07:23 BP 158 / 82; Pulse 77; Resp 17 S; Temp 97.8(TE); Pulse Ox 99% on R/A; Weight 54.43 kg jd3 (R); Height 5 ft. 3 in. (160.02 cm) (R); Pain 8/10; 10:15 BP 149 / 89; Pulse 67; Resp 16; Pulse Ox 99% ; sv 11:28 Pain 5/10; sv 11:35 BP 172 / 79; Pulse 52; Resp 16; Pulse Ox 99% ; sv 07:23 Body Mass Index 21.26 (54.43 kg, 160.02 cm) jd3 ED Course: 07:10 Patient arrived in ED. mr 07:11 Kamari Escalante MD is Private Physician. mr 07:21 Triage completed. jd3 07:23 Arm band placed on. jd3 07:27 Fatou Lopez RN is Primary Nurse. sv 07:28 Nicolas Tobar MD is Attending Physician. rn 07:28 Patient has correct armband on for positive identification. Bed in low position. Call sv light in reach. Door closed. Head of bed elevated. 07:31 ED physician to see patient. sv 07:40 Inserted saline lock: 20 gauge in right antecubital area, using aseptic technique. sv Blood collected. Flushed right antecubital with 2 ml normal saline. 07:54 US Abdomen Limited In Process Unspecified. EDMS 08:17 CT Abd/Pelvis - IV Contrast Only In Process Unspecified. EDMS 08:21 Patient moved back from CT. sv 11:49 No provider procedures requiring assistance completed. IV discontinued, intact, hb bleeding controlled, No redness/swelling at site. Administered Medications: 07:45 Drug: Zofran (Ondansetron) 4 mg Route: IVP; Site: right antecubital; sv 08:30 Follow up: Response: No adverse reaction sv 07:45 Drug: NS 0.9% 1000 ml Route: IV; Rate: 1000 ml; Site: right antecubital; sv 09:00 Follow up: Response: No adverse reaction; IV Status: Completed infusion; IV Intake: sv 1000ml 07:47 Drug: morphine 4 mg {Note: rass1.} Route: IVP; Site: right antecubital; sv 08:30 Follow up: Response: No adverse reaction; RASS: Alert and Calm (0) sv 10:19 Drug: Demerol (meperidine) 25 mg Route: IVP; Site: right antecubital; hb 11:28 Follow up: Pain 5/10 Adult; Response: No adverse reaction; Pain is decreased; RASS: sv Alert and Calm (0) Intake: 09:00 IV: 1000ml; Total: 1000ml. sv Outcome: 11:38 Discharge ordered by . rn 11:49 Discharged to home ambulatory. hb 11:49 Condition: stable 11:49 Discharge instructions given to patient, Instructed on discharge instructions, follow up and referral plans. medication usage, Demonstrated understanding of instructions, follow-up care, medications, Prescriptions given X 2. 11:49 Patient left the ED. hb Signatures: Dispatcher [employer] EDFatou Andrew RN RN [facility] mr TobarNicolas santiago MD MD rn Baxter, Heather, RN RN hb Davies, Jonathon, RN RN jd3
[2021-02-22 12:30] VITALS: TEMP 97.8; O2SAT 99
[2021-02-22 12:35] VITALS: BP 172/79
== END 2021-02-22 11:49 | disposition home or self-care (01) ==
LOC: ER 07:06
DX: K29.70 Gastritis, unspecified, without bleeding (principal); F10.188 Alcohol abuse with other alcohol-induced disorder; F17.210 Nicotine dependence, cigarettes, uncomplicated; Z88.2 Allergy status to sulfonamides
CPT/HCPCS: 85025; 80048; 36415; 82565; 80076; 83690; 74177; 76705; Q9967; J2175; J7030; J2405; 96361; 96374; 96375; 99284

== ENCOUNTER 2021-02-24 12:08 | Emergency (ER) | payer OTHER ==
--- OUTSIDE RECORDS SUMMARY | 2021-02-24 12:11 | XMS REPORT | Continuity of Care Document ---
:1965 Author Organization [facility] t Address [address] [place] [address] Care Team Providers Name Role Phone Gaurav [...] Memoria ANGIOGRAM 05-06 13:44:00 l DX: 00:00: [facility] RENAL 00 ANGIOGRAM Active 05/06/2014 [facility] BOWEL Diagnosis Active 2014-01-07 [facility] oria OBSTRUCTIO 12-30 21:50:00 l N BOWEL 00:00: [place] OBSTRUCTIO 00 N Active 12/30/2013 [facility] 795.79 Diagnosis Active 2000-2015-01-05 Mem oria V82.2 1- 10:04:00 l 724.2 795.79 00:00: [place] 719.43 V82.2 00 726.31 724.2 719.43 726.31 Active 08/28/2000 [facility] Crohn's Problem Resolve 2015-02-07 Mem oria disease d 00:48:36 l (disorder) Crohn's Her giles disease (disorder) Resolved Problem 02/07/2015 J CARLOS Morin, [place], [facility] Hyperchole Problem Active 2015-02-07 M emoria sterolemia 00:48:36 l (disorder) Moncho escamilla Hyperchole sterolemia (disorder) Active Problem 02/07/2015 J CARLOS Morin,[facility] Hypertensi Problem Active 2015-02-07 M emoria ve 00:48:36 l disorder, [place] systemic Hypertensi arterial ve (disorder) disorder, systemic arterial (disorder) Active Problem 02/07/2015 J CARLOS Morin,[facility] Sleep Problem Active 2015-02-07 Memor ia apnea 00:48:36 l (finding) Sleep Moncho n apnea (finding) Active Problem 02/07/2015 J CARLOS Morin,[facility] INTESTINAL Diagnosis Active 2014-01-07 Memoria OBSTRUCT 21:50:00 l NOS [place] INTESTINAL OBSTRUCT NOS Active [facility] Allergies, Adverse Reactions, Alerts Allergy Allergy [...] to drug NKFA NKFA Active Memoria l [facility] sulfa sulfa Active Memoria drugs drugs l [place] Social History Social Habit Start Date Stop Date Quantity Comments Source Sex Assigned At [facility] Tobacco use and 2018-12-10 2018-12-10 Current user [facility] exposure 00:00:00 00:00:00 Alcohol intake 2018-12-10 2018-12-10 [facility] 00:[facility] 00:00:00 (finding) Social History 2013-12-30 2013-12-30 [facility] Aundrea glover 13:29:20 13:29:20 Smoking Status Start Date Stop Date Source Current every day smoker 2018-12-10 00:00:00 [facility] [employer] Medications Ordered Filled Start Stop Current Ordering [...] H arris rine 4-15 left-sided tablet by [facility] th (FLEXERIL) 00:00: low back mouth 2 [...] 18:26: nightly. 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) 18:26: 3D [...] ia 5-07 (Same As: l 14:00: Entocort [place] 00 EC or Budesonide 3 mg EC [...] 5-07 (Same as: l 02:00: Ditropan [place] XL) "Do Not Crush" Pamelor No Notes: [...] Memoria 5-05 (Same as: l 22:00: Habitrol) [facility] "Remove old patch before applicatio n of new patch" Protonix No Notes: For Mem oria 5-05 IV push l 21:30: reconstitu [place] te with 10 ml 0.9% sodium chloride [...] 4 cap, l Extended 11:54: BID, 0 [place] Release 00 Refill(s) Capsule [Pentasa] sertraline Yes [...] PO, l chloride 10 11:54: Bedtime, # [facility] MG Extended 00 30 tab, 0 Release [...] 0 Memoria Bicarbonate 5-05 Refill(s) l 11:54: [place] 00 methocarbam Yes 750 mg = 1 [...] Memoria 5-05 (Same as: l 09:00: Lovenox) [place] 00 normal No 1,000 mL, Memori a saline 0.9% 05 Rate: 100 l IV 1,000 mL 08:52: ml/hr, Herm booker Infuse over: 10 hr, Route: IV, Dosing Weight 71.818 kg, Total Volume: 1,000, Start date: 12/30/13 3:52:00, Duration: 30 day, Stop date: 01/29/14 3:51:00 Immunizations Ordered Immunization Filled Immunization Date Status Commen ts Source Name Name Td 2018-04-13 [facility] 00:00:00 [facility] Vital Signs Vital Name Observation Time Observation [...] Systolic (mm Hg) 2014-01-02 20:58:00 Mau rial [facility] Temperature Oral (F) 2014-01-02 16:23:00 98.2 F [facility] Heart Rate 2014-01-02 16:23:00 [facility] Respitory Rate 2014-01-02 16:23:00 Memori al [facility] Systolic (mm Hg) 2014-01-02 16:23:00 Mau rial [facility] Diastolic (mm Hg) 2014-01-02 16:23:00 Mem orial [place] Diastolic (mm Hg) 2014-01-02 12:20:00 Mem orial [place] Systolic (mm Hg) 2014-01-02 12:20:00 Mau rial [place] Respitory Rate 2014-01-02 12:20:00 Memori al [facility] Temperature Oral (F) 2014-01-02 12:20:00 98.5 F [facility] Heart Rate 2014-01-02 12:20:00 [facility] Weight 2013-12-30 08:54:00 [facility] Height 2013-12-30 08:54:00 162.56 cm [facility] BMI Calculated 2013-12-30 08:54:00 Memori al [facility] Weight 2013-12-30 08:52:00 [facility] BMI Calculated 2013-12-30 08:52:00 Memori al [place] Height 2013-12-30 08:52:00 162.56 cm [facility] [place] Weight 2013-12-30 08:40:00 [facility] BMI Calculated 2013-12-30 08:40:00 Memori al [facility] Height 2013-12-30 08:40:00 162.56 cm [facility] [place] Procedures Procedure Date / Time Performed Performing Clinician [facility] rudi Abdominal aorta angiogram [facility] Abdominal hysterectomy [facility] Angiography of renal [facility] arteries, bilateral Appendectomy [facility] Superior mesenteric [facility] angiography Suspension of bladder [facility] ermann [facility]il[facility] Plan of Care Planned Activity Planned Date Details Comments Source Future Scheduled 2021-05-28 IMM Influenza Magdiel Savage lt Test 00:00:00 Seasonal May to October (>/= 19 yrs) [code = IMM Influenza Seasonal May to October (>/= 19 yrs)] Future Scheduled 2021-03-28 INFLUENZA VACCINE [place] [facility] Test 00:00:00 [code = INFLUENZA VACCINE] Future Scheduled 2017-07-28 [facility] [code = BREAST CANCER SCREENING] Future Scheduled 2013 Screening for Magdiel [facility] Test 00:00:00 malignant neoplasm of colon (procedure) [code = 143778343] Future Scheduled 2013 COLONOSCOPY SCREENING [place] [facility] Test 00:00:00 [code = COLONOSCOPY SCREENING] Future Scheduled 2013 SHINGLES VACCINES [place] [facility] Test 00:00:00 (#1) [code = SHINGLES VACCINES (#1)] Future Scheduled 2003 Breast Cancer [address] [facility] Test 00:00:00 (Yearly) [code = Breast Cancer Scrn (Yearly)] Future Scheduled 1993 Screening for Magdiel Savage lt Test 00:00:00 malignant neoplasm of cervix (procedure) [code = 431453011] Future Scheduled 1993 Screening for Magdiel Savage lt Test 00:00:00 malignant neoplasm of cervix (procedure) [code = 325676883] Future Scheduled 1984-02-27 Screening for [facility]ist Test 00:00:00 malignant neoplasm of cervix (procedure) [code = 548002538] Future Scheduled 1981 Hepatitis C screening [place] [facility] Test 00:00:00 (procedure) [code = 287898788] Future Scheduled 1975 COVID-19 Vaccine (1) [facility] 00:00:00 [code = COVID-19 Vaccine (1)] Future Scheduled 1975 COVID-19 VACCINE (1) [place] [facility] Test 00:00:00 [code = COVID-19 VACCINE (1)] Encounters Start End Encounter Admission Attending Care Care Encounter Source Date/Time Date/Time Type Type Clinicians Facility Department ID 2020-07-02 2020-07-02 Emergency GENEVA Chao [id number] 14:38:00 16:16:00 Elier Chris [id number] [place] [id number] [place] [id number] 2020-04-29 2020-04-29 Emergency [facility] [id number] 12:18:00 15:08:00 Zoraida Chris [id number] [place] 4.2.7.2.686 [place] [id number] 2020-03-17 2020-03-17 [facility] [id number] 11:37:56 13:51:00 Elier Chris [id number] [place] 4.2.7.2.686 [place] [id number] 2020-03-17 2020-03-17 Orders Doctor LUCIANO [id number] 00:00:00 00:00:00 Only Unassigned, JUANCARLOS 350.1.13.10 [place] [id number] 2018-12-10 2018-12-10 Outpatient [facility] [id number] Veloz 16:03:58 16:03:58 Health 2018-12-10 2018-12-10 Emergency [facility] [id number] Magdiel 11:20:39 11:20:39 Health 2017-09-01 2017-09-01 Emergency [facility] [id number] Magdiel 10:29:00 10:29:00 [facility] 2015-02-04 2015-02-04 Outpatient Ashish [facility] [id number] 08:00:00 23:59:00 Julian Zheng 2015-01-05 2015-01-05 Outpatient Marilee [facility] [id number] 10:04:00 23:59:00 jono, Rupesh Sales 2014-05-20 2014-05-20 Outpatient Tito [facility] [id number] 06:14:00 14:30:00 aLrry Woodson 00 2013-12-30 2014-01-02 Outpatient Taurus [facility] [id number] 02:50:00 22:00:00 Rivera 25 Results Test Description [...] code = MCH) 35.5 pg 27.0-31.0 [facility] VchzyyyUEKYWATPLD5868-22-00 14:26:0013.3[facility]ann[facility]MATOLOGY 2014-05-19 14:26:0037.9[facility] WhhkynfZTVLSCYNCA0208-66-16 14:26:003.73[facility] DusutyiQPOWSEONUQ7237-17-10 14:26:006.1[facility] CchvjelSNUGAAIQGT6239-57-47 14:26:008.0[facility]orial ZpvjilzBTCJXSSIXD5255-15-28 14:26:0017.2[facility] [place] IRAHPEBRTH3734-47-05 14:26:02202Lnifwpad PeadvsbWHOHLGDREW8504-99-68 14:26:00 35.0[facility] DslezofKXNEAPCUTA1543-80-69 14:26:000.93[facility] HermannHEMATOLOGY 2014-05-19 14:26:00 Test Item Value Reference Range Interpretation Comments PT (test code = PT) 12.4 s 12.0-14.7 Memorial DptfdadLNKAPUNSEM5808-63-35 09:42:004.4[facility] HermannHEMATOLOGY 2014-01-01 09:42:003.80[facility] OhawelfIDHRWMQPCX4912-79-46 09:42:00 Test Item Value Reference Range Interpretation Comments MCH (test code = MCH) 31.1 pg 27.0-31.0 Memorial GsjaqmgUWPMJCIUTL4891-14-24 09:42:0011.8[facility] HermannHEMATOLOGY 2014-01-01 09:42:0034.5[facility] GvefgmdBPTGSKOVMJ6613-28-44 09:42:0090.6[facility] MzlobeiKMBXGWMOAQ1619-80-08 09:42:0016.3[facility] AtyswvxMZMKTFODIN9789-52-17 09:42:0034.3[facility] NapjahbKWCUDAKSIZ5442-89-58 09:42:10389Wyfvmlws [place] FLHULXPWAL8689-47-43 09:42:007.9[facility] RajqmvqSCUWHVOXPF7011-67-82 09:42:001.6 [facility] VomcosjLDQLGZMEWG3709-79-17 09:42:000.2[facility] HermannHEMATOLOGY 2014-01-01 09:42:002.6[facility] WtyeqqhEYBUJXFUAC4058-29-33 09:42:007.4[facility] RjfuwoxMSZOHDFJYE7860-21-93 09:42:001.3[facility] ZfajnvuDZAMLRXACX4211-10-07 09:42:000.3[facility] YgxwakgSUCBEONVYJ0211-33-51 09:42:000.1[facility] [place] KUBFFOQRVZ1292-61-63 09:42:000.0[facility] LvcscnbKWBWLYHJBW0898-52-70 09:42:00 30.7Mem[facility] ZtlxpoyGSSJBKCSFZ3311-98-16 09:42:0060.1[facility] HermannCHEM PANEL 2014-01-01 09:42:002.0[facility] HermannCHEM XGUMJ2443-57-64 09:42:23829Epjuomnm HermannCHEM WYPZR1282-01-12 09:42:004[facility] HermannCHEM WGXQG9914-03-38 09:42:003.8[facility] HermannCHEM LGJDM7832-34-48 09:42:000.5[facility] HermannCHEM QMNRF2370-37-36 09:42:0094[facility] HermannCHEM OPMWV3769-06-18 09:42:90209 [facility] HermannCHEM LDBYM5467-03-15 09:42:008.7[facility] HermannCHEM PANEL 2014-01-01 09:42:22274Yndlzwsm HermannCHEM EDYZP8213-42-74 09:42:0030[facility] HermannCHEM DVNQP7106-21-47 09:42:0010.8[facility] HermannCHEM REXPB2086-96-46 12:13:001.8[facility] HermannCHEM QZBIW8500-40-30 12:13:002.6[facility] HermannCHEM GNDUO1633-53-50 12:13:002.8[facility] HermannCHEM XARGI7883-01-41 12:13:001.2 [facility] HermannCHEM CSOQU8674-55-68 12:13:0010[facility] HermannCHEM PANEL 2013-12-30 12:13:006.9[facility] HermannCHEM ITFNU9753-56-26 12:13:91225Zueiqcpm HermannCHEM BSAVD5729-57-64 12:13:0084[facility] HermannCHEM DHHDG9281-51-15 12:13:003.9[facility] HermannCHEM ZMWBB3265-70-60 12:13:63730Ltfzwilq HermannCHEM ZDDXH1324-74-98 12:13:000.7[facility] HermannCHEM NWFSZ1682-15-71 12:13:007 [facility] HermannCHEM YUCKX0647-24-01 12:13:000.3[facility] HermannCHEM PANEL 2013-12-30 12:13:0071[facility] HermannCHEM HIVRE6291-54-84 12:13:0021[facility] HermannCHEM HSHOT3614-84-93 12:13:0020[facility] HermannCHEM XNOYZ1486-92-48 12:13:006.1[facility] HermannCHEM MVZLL2481-35-32 12:13:0033[facility] HermannCHEM HMVGZ7534-28-09 12:13:003.3[facility] HermannCHEM BTFHH7043-21-15 12:13:008.4 [facility] HermannCHEM TXFOD5105-13-47 12:13:19061Pxvkrrgo HermannHEMATOLOGY 2013-12-30 12:13:000.0[facility] NwucbeoBHKGHWTQWY0740-57-08 12:13:0063.5[facility] OtqmapoNEBQEHUYZZ4884-55-53 12:13:000.3[facility] YndzkbxGEMONKROLM5397-27-49 12:13:000.2[facility] KgzhfhuFOBATOUOFO6548-49-63 12:13:001.5[facility] AADLDLJDYB6304-97-37 12:13:003.3[facility] AmllodhIQXPDXLKZV5067-59-40 12:13:000.1 Memorial VstiztkZCUNGMZQCW2208-40-74 12:13:0028.9[facility] HermannHEMATOLOGY 2013-12-30 12:13:006.2[facility] KvlwvpmPDAEDQONWC9896-37-85 12:13:001.2[facility] ZnijitdOUMYIVVQXK7259-21-48 12:13:0034.3[facility] OzxwbcaZAOORTHLEG5279-18-47 12:13:0016.5[facility] UgzfganYXPBVEMPGT5402-75-85 12:13:00 Test Item Value Reference Range Interpretation Comments MCH (test code = MCH) 31.5 pg 27.0-31.0 Memorial XiwmqbgHEHCZFWFIG6212-29-42 12:13:0091.9[facility] HermannHEMATOLOGY 2013-12-30 12:13:40100Vjbsymyg XpnlyvgIHYNMAQXJM7551-08-34 12:13:007.9[facility] HolbvnlOYHMLKPIGZ4155-45-81 12:13:003.91[facility] GhsqrbnKWGIXTNAOB3202-31-15 12:13:0035.9[facility] YypqyvwIMQNERZQGR3272-47-74 12:13:0012.3[facility] [place] ALMMOSFTLV9076-51-33 12:13:005.1[facility] [place]
[2021-02-24 14:17] LABS: Absolute Lymphocytes (CBC) 2.1 K/uL (0.7-4.9); Basophils % 0.3 % (0-1.3); Hematocrit 40.7 % (36.0-45.0); Lymphocytes % 37.8 % (15.3-44.8); MPV 9.1 fL (7.6-11.3); RBC Red Blood Cell Count 4.25 M/uL (3.86-4.86)
[2021-02-24 14:35] LABS: ALT/SGPT 117 U/L (12-78); AST/SGOT 82 U/L (15-37); Albumin 3.7 g/dL (3.4-5.0); Alkaline Phosphatase 95 U/L (45-117); BUN Blood Urea Nitrogen 7 mg/dL (7-18); Bicarbonate 30 mmol/L (21-32); Bilirubin Direct 0.1 mg/dL (0-0.2); Bilirubin Total 0.5 mg/dL (0.2-1.0); Glucose Level 73 mg/dL (74-106); Lipase 148 U/L (73-393); Potassium 3.7 mmol/L (3.5-5.1); Sodium Level 141 mmol/L (136-145)
[2021-02-24] MEDS ORDERED: MORPHINE 4 MG/ML SYR ONE (14:35)
[2021-02-24] MEDS ORDERED: ONDANSETRON 4 MG/2 ML VIAL ONE (14:36)
--- NOTE | 2021-02-24 15:07 | EDPHYS ---
Physician Documentation [facility] Name: Tita Elizabeth Age: 55 yrs Sex: Female : 1965 Arrival Date: 02/24/2021 Time: 12:23 Bed 13 Private MD: ED Physician Santiago Wang HPI: 02/24 14:50 This 55 yrs old Female presents to ER via Wheelchair with complaints of jr8 Abdominal pain. 14:50 The patient presents with abdominal pain in the epigastric area, in the right upper jr8 quadrant. Onset: The symptoms/episode began/occurred gradually, 3 day(s) ago. The symptoms radiate to right back. Associated signs and symptoms: Pertinent positives: nausea and vomiting. The symptoms are described as shooting. Modifying factors: The symptoms are alleviated by nothing, the symptoms are aggravated by nothing. Severity of pain: At its worst the pain was moderate in the emergency department the pain is unchanged. The patient has experienced a previous episode, approximately 2 days ago. The patient has been recently seen by a physician:. Patient seen and had blood work, CT, and US completed 2 days ago for the same complaints. No acute findings were found at that time. Sent home on PPI and zofran. Has been taking the meds since then but still in pain . Historical: - Allergies: 12:28 Sulfa (Sulfonamide Antibiotics); jl7 - PMHx: 12:28 Arthritis; chron's; Hypertension; immune disorder; lyme disease; jl7 - PSHx: 12:28 Appendectomy; hysterectomy; Tonsillectomy; bladder sling; jl7 - Immunization history:: Adult Immunizations not up to date, Client reports having NOT received the Covid vaccine. - Social history:: Smoking status: Patient reports the use of cigarette tobacco products, smokes one pack cigarettes per day. ROS: 14:50 Eyes: Negative for injury, pain, redness, and discharge, ENT: Negative for injury, jr8 pain, and discharge, Neck: Negative for injury, pain, and swelling, Cardiovascular: Negative for chest pain, palpitations, and edema, Respiratory: Negative for shortness of breath, cough, wheezing, and pleuritic chest pain, Back: Negative for injury and pain, MS/Extremity: Negative for injury and deformity, Skin: Negative for injury, rash, and discoloration, Neuro: Negative for headache, weakness, numbness, tingling, and seizure. 14:50 Abdomen/GI: Positive for abdominal pain, nausea and vomiting. Exam: 14:50 Constitutional: This is a well developed, well nourished patient who is awake, alert, jr8 and in no acute distress. Cardiovascular: Regular rate and rhythm with a normal S1 and S2. No gallops, murmurs, or rubs. Normal PMI, no JVD. No pulse deficits. Respiratory: Lungs have equal breath sounds bilaterally, clear to auscultation and percussion. No rales, rhonchi or wheezes noted. No increased work of breathing, no retractions or nasal flaring. Back: No spinal tenderness. No costovertebral tenderness. Full range of motion. Skin: Warm, dry with normal turgor. Normal color with no rashes, no lesions, and no evidence of cellulitis. MS/ Extremity: Pulses equal, no cyanosis. Neurovascular intact. Full, normal range of motion. Neuro: Awake and alert, GCS 15, oriented to person, place, time, and situation. Motor strength 5/5 in all extremities. Sensory grossly intact. 14:50 Abdomen/GI: Inspection: abdomen appears normal, Bowel sounds: active, all quadrants, Palpation: soft, in all quadrants, mild abdominal tenderness, in the epigastric area and right upper quadrant, mass, is not appreciated, rebound tenderness, is not appreciated, voluntary guarding, is not appreciated, involuntary guarding, is not appreciated, no appreciated organomegaly, Indicators: McBurney's point is not tender, Stevens's sign is negative, Rovsing's sign is negative, Liver: tenderness, is not appreciated. Vital Signs: 12:26 BP 154 / 90; Pulse 65; Resp 17; Temp 97.1; Pulse Ox 99% on R/A; Weight 54.43 kg; Height jl7 5 ft. 3 in. (160.02 cm); Pain 10/10; 13:30 BP 159 / 83; Pulse 56; Resp 15; Pulse Ox 99% ; bp 14:24 BP 153 / 83; Pulse 56; Resp 12; Pulse Ox 99% ; bp 12:26 Body Mass Index 21.26 (54.43 kg, 160.02 cm) jl7 MDM: 13:35 Patient medically screened. jr8 14:58 Data reviewed: vital signs, nurses notes, old medical records, lab test result(s). Data jr8 interpreted: Pulse oximetry: on room air is 99 %. Interpretation: normal. 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 Special discussion: Based on the patient's Hx, exam, and Dx evaluation, there is no indication for emergent surgery or inpatient Tx. It is understood by the patient/guardian that if the Sx's persist or worsen they need to return immediately for re-evaluation. ED course: Discussed with patient that there has been no significant change with labs. EKG stable and negative trop. Based on symptoms recommend f/u with GI for endoscopy and HIDA scan if deemed appropriate. Patient good with this and will f/u with one . 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 Moderate risk for benzos. Ok to give opioid pain jr8 medications for short stent at this time . 02/24 13:41 Order name: Basic Metabolic Panel [facility] 02/24 13:41 Order name: CBC with Diff; Complete Time: 14:35 [facility] 02/24 13:41 Order name: Hepatic Function; Complete Time: 14:36 [facility] 02/24 13:41 Order name: Lipase; Complete Time: 14:36 [facility] 02/24 13:42 Order name: Basic Metabolic Panel; Complete Time: 14:36 [facility] 02/24 13:55 Order name: Troponin (emerg Dept Use Only); Complete Time: 14:48 02/24 13:41 Order name: IV Saline Lock; Complete Time: 14:19 [facility] 02/24 13:41 Order name: Labs collected and sent; Complete Time: 14:19 [facility] 02/24 13:55 Order name: EKG - Nurse/Tech; Complete Time: 14:22 [facility] 02/24 13:55 Order name: EKG; Complete Time: 13:55 [facility] Administered Medications: 14:00 Drug: morphine 4 mg Route: IVP; Site: right forearm; bp 14:25 Follow up: Response: No adverse reaction bp 14:00 Drug: Zofran (Ondansetron) 4 mg Route: IVP; Site: right forearm; bp 14:25 Follow up: Response: No adverse reaction bp Disposition: 02/25 08:41 Co-signature as Attending Physician, Santiago Wang MD I agree with the assessment and kdr plan of care. Disposition Summary: 02/24/21 15:06 Discharge Ordered Location: Home jr8 Problem: new jr8 Symptoms: have improved jr8 Condition: Stable jr8 Diagnosis - Right upper quadrant pain jr8 - Acute gastritis jr8 Followup: jr8 - With: Rudolph Landaverde MD - When: 2 - 3 days - Reason: Recheck today's complaints, Continuance of care, Re-evaluation by your physician Discharge Instructions: - Discharge Summary Sheet jr8 - Abdominal Pain, Adult jr8 - Biliary Colic, Adult jr8 - Gallbladder Nuclear Scan jr8 Forms: - Medication Reconciliation Form jr8 - Thank You Letter jr8 - Antibiotic Education jr8 - Prescription Opioid Use jr8 Prescriptions: - acetaminophen-codeine 300-15 mg Oral tablet - take 2 tablet by ORAL route every 6 hours; 12 tablet; Refills: 0, Product jr8 Selection Permitted Signatures: Dispatcher [employer] EDMS Santiago Wang MD MD kdr Thomas Huggins PA PA jr8 Aron Carlson RN RN jl7 Michael Leonard RN RN bp
--- NOTE | 2021-02-24 15:07 | ER ---
Nurse's Notes [facility] Name: Tita Elizabeth Age: 55 yrs Sex: Female : 1965 Arrival Date: 02/24/2021 Time: 12:23 Bed 13 Private MD: Diagnosis: Right upper quadrant pain;Acute gastritis Presentation: 02/24 12:26 Chief complaint: Patient states: Nausea, diarrhea, RUQ and lower abdominal pain x 1 jl7 week. Coronavirus screen: Client denies travel out of the [place] in the last 14 days. At this time, the client does not indicate any symptoms associated with coronavirus-19. Ebola Screen: No symptoms or risks identified at this time. Initial Sepsis Screen: Does the patient meet any 2 criteria? No. Patient's initial sepsis screen is negative. Does the patient have a suspected source of infection? No. Patient's initial sepsis screen is negative. Risk Assessment: Do you want to hurt yourself or someone else? Patient reports no desire to harm self or others. Onset of symptoms was February 17, 2021. 12:26 Method Of Arrival: Wheelchair [facility] 12:26 Acuity: JAY 3 jl7 Triage Assessment: 13:30 General: Appears distressed, uncomfortable, Behavior is cooperative, appropriate for bp age, anxious. Pain: Complains of pain in abdomen. EENT: No deficits noted. Neuro: No deficits noted. Cardiovascular: No deficits noted. Respiratory: No deficits noted. GI: No signs and/or symptoms were reported involving the gastrointestinal system. : No signs and/or symptoms were reported regarding the genitourinary system. Derm: No deficits noted. Musculoskeletal: Swelling present in right leg and left leg. Historical: - Allergies: 12:28 Sulfa (Sulfonamide Antibiotics); jl7 - PMHx: 12:28 Arthritis; chron's; Hypertension; immune disorder; lyme disease; jl7 - PSHx: 12:28 Appendectomy; hysterectomy; Tonsillectomy; bladder sling; jl7 - Immunization history:: Adult Immunizations not up to date, Client reports having NOT received the Covid vaccine. - Social history:: Smoking status: Patient reports the use of cigarette tobacco products, smokes one pack cigarettes per day. Screenin:30 Abuse screen: Denies threats or abuse. Denies injuries from another. Nutritional bp screening: No deficits noted. Tuberculosis screening: No symptoms or risk factors identified. Fall Risk None identified. Assessment: 13:30 General: SEE TRIAGE NOTE. bp 14:24 Reassessment: No changes from previously documented assessment. Patient and/or family bp updated on plan of care and expected duration. Pain level reassessed. Patient is alert, oriented x 3, equal unlabored respirations, skin warm/dry/pink. Cardiovascular: Rhythm is sinus bradycardia. Vital Signs: 12:26 BP 154 / 90; Pulse 65; Resp 17; Temp 97.1; Pulse Ox 99% on R/A; Weight 54.43 kg; Height jl7 5 ft. 3 in. (160.02 cm); Pain 10/10; 13:30 BP 159 / 83; Pulse 56; Resp 15; Pulse Ox 99% ; bp 14:24 BP 153 / 83; Pulse 56; Resp 12; Pulse Ox 99% ; bp 12:26 Body Mass Index 21.26 (54.43 kg, 160.02 cm) jl7 ED Course: 12:23 Patient arrived in ED. am2 12:28 Triage completed. jl7 12:28 Arm band placed on right wrist. jl7 13:30 Patient has correct armband on for positive identification. Bed in low position. Call bp light in reach. Side rails up X2. 13:35 [facility]. jr8 13:35 Santiago Wang MD is Attending Physician. jr8 13:39 Michael Leonard, RN is Primary Nurse. bp 14:00 Inserted saline lock: 20 gauge in right forearm, using aseptic technique. Blood bp collected. 14:19 Basic Metabolic Panel Sent. bp 14:21 Warm blanket given. Pillow given. property assessment monitor on. Pulse ox on. NIBP on. mh5 14:22 EKG done, by ED staff, reviewed by Santiago Wang MD. 5 15:05 Rudolph Landaverde MD is Referral Physician. jr8 15:24 No provider procedures requiring assistance completed. IV discontinued, intact, ss bleeding controlled, No redness/swelling at site. Pressure dressing applied. Administered Medications: 14:00 Drug: morphine 4 mg Route: IVP; Site: right forearm; bp 14:25 Follow up: Response: No adverse reaction bp 14:00 Drug: Zofran (Ondansetron) 4 mg Route: IVP; Site: right forearm; bp 14:25 Follow up: Response: No adverse reaction bp Outcome: 15:06 Discharge ordered by MD. mulligan 15:24 Discharged to home ambulatory. ss 15:24 Condition: good 15:24 Discharge instructions given to patient, Instructed on discharge instructions, follow up and referral plans. medication usage, Demonstrated understanding of instructions, follow-up care, medications, Prescriptions given X 1. 15:24 Patient left the ED. ss Signatures: Ilene Hitchcock RN RN Thomas Huggins PA PA jr8 Nancy Mcgowan 5 Aron Carlson RN RN jl7 Vielka Khan Brian, RN RN bp
[2021-02-24 15:31] VITALS: TEMP 97.1; O2SAT 99
[2021-02-24 15:35] VITALS: BP 153/83
== END 2021-02-24 15:24 | disposition home or self-care (01) ==
LOC: ER 12:08
DX: K29.00 Acute gastritis without bleeding (principal); I10 Essential (primary) hypertension; Z88.2 Allergy status to sulfonamides
CPT/HCPCS: 85025; 80048; 36415; 80076; 84484; 83690; J2405; 93005

== ENCOUNTER 2021-04-12 09:18 | Emergency (ER) | payer OTHER ==
--- OUTSIDE RECORDS SUMMARY | 2021-04-12 09:22 | XMS REPORT | Continuity of Care Document ---
:1965 Author Organization [facility] t Address [address] [place] [address] Care Team Providers Name Role Phone Gaurav Hinojosa MD Primary Care Physician Carlos Alberto Attending Clinician Unavailable Henrry Antunez Attending Clinician Unavailable Singer SHANKAR Attending Clinician Brandon Ascencio Attending Clinician Doctor Unassigned, Name Attending Clinician Unavailable Marce Hinojosa Attending Clinician Henrry Ernandez Attending Clinician Chintan Francis Attending Clinician Taurus Attending Clinician Henrry Antunez Admitting Clinician Unavailable Daniela Escalante Admitting Clinician Unavailable Henrry Ernandez Admitting Clinician Taurus Admitting Clinician Payers Payer Name Policy Type Policy Number Effective Date Expiration Date S ource Problems Condition Condition Condition Status Onset Resolution Last Treating Co mments Source Name Details Category Date Date Treatment Clinician Date Chest pain Chest pain Disease Active 2018-0 M ethodi of of [facility] uncertain uncertain 00:00: Hosp [facility] etiology etiology 00 l DX: RENAL Diagnosis Active 2014-05-27 Memoria ANGIOGRAM 05-06 13:44:00 l DX: 00:00: [place] RENAL 00 ANGIOGRAM Active 05/06/2014 [facility] BOWEL Diagnosis Active 2014-01-07 Mem oria OBSTRUCTIO -05 21:50:00 l N BOWEL 00:00: [place] OBSTRUCTIO 00 N Active 12/30/2013 [facility] 795.79 Diagnosis Active 2015-01-05 Mem oria V82.2 08-28 10:04:00 l 724.2 795.79 00:00: [place] 719.43 V82.2 00 726.31 724.2 719.43 726.31 Active 08/28/2000 [facility] Crohn's Problem Resolve 2015-02-07 Mem oria disease d 00:48:36 l (disorder) Crohn's Her giles disease (disorder) Resolved Problem 02/07/2015 J CARLOS Morin,[facility], [facility] Hyperchole Problem Active 2015-02-07 M emoria sterolemia 00:48:36 l (disorder) Moncho n Hyperchole sterolemia (disorder) Active Problem 02/07/2015 J CARLOS Morin,[facility] Hypertensi Problem Active 2015-02-07 M emoria ve 00:48:36 l disorder, [place] systemic Hypertensi arterial ve (disorder) disorder, systemic arterial (disorder) Active Problem 02/07/2015 [facility] Sleep Problem Active 2015-02-07 Memor ia apnea 00:48:36 l (finding) Sleep Moncho n apnea (finding) Active Problem 02/07/2015 [facility] INTESTINAL Diagnosis Active 2014-01-07 Memoria OBSTRUCT 21:50:00 l NOS [place] INTESTINAL OBSTRUCT NOS Active [facility] Allergies, Adverse Reactions, Alerts Allergy Allergy Status Severity Reaction(s) Onset Inactive Treating Comm ents Source Name Type Date Date Clinician Sulfa DA Active U BRENDA (Sulfona 7-01 Clear mide 00:00: Winter [facility]iot 00 [facility] Sulfa Propensi Active Magdiel (Sulfona ty to 4-15 Health mide adverse 00:00: Antibiot reaction 00 ics) s to drug Sulfa Propensi Active Methodi (Sulfona ty to 18 st mide adverse 00:00: Hospita Antibiot reaction 00 l ics) s to drug sulfa sulfa Active Memoria drugs drugs l [place] Social History Social Habit Start Date Stop Date Quantity Comments Source Sex Assigned At Vel[facility] Nathan alth Tobacco use and 2018-12-10 2018-12-10 Current user [facility] exposure 00:00:00 00:00:00 Alcohol intake 2018-12-10 2018-12-10 Ex-drinker Veloz Nathan lth 00:00:00 00:00:00 (finding) Social History 2013-12-30 2013-12-30 [facility] belen 13:29:20 13:29:20 Smoking Status Start Date Stop Date Source Current every day smoker 2018-12-10 00:00:00 [facility] Medications Ordered Filled Start Stop Current [...] rine 4-15 left-sided tablet by [facility] th (FLEXERIL) 00:00: low back mouth 2 10 mg 00 pain with times tablet sciatica, daily as sciatica needed for laterality Muscle unspecified Spasms. naproxen Yes 440mg Q24H Take 440 Meth floyd sodium 6-[address] (ALEVE) 220 23:26: mouth Hospi ta MG tablet 50 daily as l needed for mild pain. citalopram Yes 40mg QD Take 40 mg M ethodi (CeleXA) 40 6-[address] MG tablet 23:26: nightly. Hosp tasha 50 l metoprolol Yes 25mg Q.[id number] Take 25 mg Methodi tartrate 6-19 [id number] mouth [address] (LOPRESSOR) 23:26: 3D (three) Hos viral 25 mg 50 times a l tablet day. Note: Rx label states BID but pt takes TID. cyanocobala Yes 1{tbl} QD Take 1 Me thodi min, 6-[address] vitamin 23:26: mouth Hospita B-12, 50 daily. l (VITAMIN B-12 ORAL) Ativan No Notes: Memoria 05-20 (Same as: [...] l Oral Tablet 14:47: Daily Alice nn [Abili] Clonidine Yes PO, Memoria 05-19 Bedtime l [...] e 5-07 Non-Formul l 14:00: elva Drug. [place] 00 (Same as: Kaylee) Entocort EC No 9 mg, Memor ia [...] Memoria 5-07 (Same as: l 02:00: Zocor) Ditropan XL No Notes: Mau agata 5-07 (Same as: l 02:00: Ditropan XL) "Do Not Crush" Pamelor No Notes: Memoria 5-07 (Same l 02:00: as:Pamelor , Aventyl) metoprolol No Notes: Memor ia tartrate 5-07 (Same as: l 02:00: Lopressor) Pentasa No Notes: Memoria 5-06 (Same as: l 22:00: Pentasa) Do not open capsule. "Do Not Crush" Ketorolac No 4 days. Mau agata Tromethamin 5-06 l e 15 MG/ML 12:43: [place] Injectable 00 Solution Nicotine No Notes: Memoria 5-05 (Same as: l 22:00: Habitrol) [place] 00 "Remove old patch before applicatio n of new patch" Protonix No Notes: For Mem oria 5-05 IV push l 21:30: reconstitu [place] 00 te with 10 ml 0.9% sodium [...] 4 cap, l Extended 11:54: BID, 0 [place] Release 00 Refill(s) Capsule [Pentasa] sertraline Yes [...] de 100 MG 11:54: Bedtime, # Nathan mittal Oral Tablet 00 90 tab, 0 Refill(s) [...] Notes: Memoria 5-05 (Same l 09:01: as:MORPhin e Sulfate) Zofran No Notes: Memoria 5-05 (Same as: l 09:00: Zofran) Lovenox No Notes: Memoria 5-05 (Same as: l 09:00: Lovenox) [place] 00 normal No 1,000 mL, Memori a saline 0.9% 05 Rate: 100 l IV 1,000 mL 08:52: ml/hr, Herm Infuse over: 10 hr, Route: IV, Dosing Weight 71.818 kg, Total Volume: 1,000, Start date: 12/30/13 3:52:00, Duration: 30 day, Stop date: 01/29/14 3:51:00 Immunizations Ordered Immunization Filled Immunization Date Status Commen ts Source Name Name Stephenap 2018-04-13 Completed [facility] 00:[facility]:00 [facility] Vital Signs Vital Name Observation Time Observation Value Comments Source Weight 2014-05-16 14:54:00 [facility] [place] BMI Calculated 2014-05-16 14:54:00 [facility] [place] Height 2014-05-16 14:54:00 160.02 cm [facility] [place] Respitory Rate 2014-01-02 20:58:00 [facility] al [place] Heart Rate 2014-01-02 20:58:00 [facility] [place] Temperature Oral (F) 2014-01-02 20:58:00 98.4 F [facility] [place] Diastolic (mm Hg) 2014-01-02 20:58:00 Mem orial [place] Systolic (mm Hg) 2014-01-02 20:58:00 Mau rial [place] Temperature Oral (F) 2014-01-02 16:23:00 98.2 F [facility] [place] Heart Rate 2014-01-02 16:23:00 [facility] [place] Respitory Rate 2014-01-02 16:23:00 Memori al [place] Systolic (mm Hg) 2014-01-02 16:23:00 Mau rial [place] Diastolic (mm Hg) 2014-01-02 16:23:00 Mem orial [place] Diastolic (mm Hg) 2014-01-02 12:20:00 Mem orial [place] Systolic (mm Hg) 2014-01-02 12:20:00 Mau rial [place] Respitory Rate 2014-01-02 12:20:00 Memori al [place] Temperature Oral (F) 2014-01-02 12:20:00 98.5 F [facility] [place] Heart Rate 2014-01-02 12:20:00 [facility] [place] Weight 2013-12-30 08:54:00 [facility] [place] Height 2013-12-30 08:54:00 162.56 cm [facility] [place] BMI Calculated 2013-12-30 08:54:00 Memori al [place] Weight 2013-12-30 08:52:00 [facility] [place] BMI Calculated 2013-12-30 08:52:00 Memori al [place] Height 2013-12-30 08:52:00 162.56 cm [facility] Weight 2013-12-30 08:40:00 [facility] BMI Calculated 2013-12-30 08:40:00 Morgan Stewartann Height 2013-12-30 08:40:00 162.56 cm [facility] Procedures Procedure Date / Time Performed Performing Clinician Andrae grijalva [facility] [place] Abdominal hysterectomy [facility] Angiography of renal [facility] arteries, bilateral Appendectomy [facility] angiography Suspension of bladder [facility] Bladder augmentation [facility] Plan of Care Planned Activity Planned Date Details Comments Source Future Scheduled 2021-05-28 IMM Influenza [facility] Test 00:00:00 Seasonal May to October (>/= 19 yrs) [code = IMM Influenza Seasonal May to October (>/= 19 yrs)] Future Scheduled 2013 Screening for [facility] Test 00:00:00 malignant neoplasm of colon (procedure) [code = 858484080] Future Scheduled [address] [facility] Test 00:00:00 (Yearly) [code = Breast Cancer Scrn (Yearly)] Future Scheduled 1993 Screening for [facility] Test 00:00:00 malignant neoplasm of cervix (procedure) [code = 480298748] Future Scheduled 1993 Screening for [facility] Test 00:00:00 malignant neoplasm of cervix (procedure) [code = 882699799] Future Scheduled 1975 COVID-19 Vaccine (1) [facility] Test 00:00:00 [code = COVID-19 Vaccine (1)] Future Scheduled COVID-19 [facility]ACCINE (1) [facility] [code = COVID-19 VACCINE (1)] Future Scheduled [facility] C [facility] (procedure) [code = 688397323] Future Scheduled Screening for [facility] Test malignant neoplasm of cervix (procedure) [code = 795674639] Future Scheduled COLONOSCOPY SCREENING [facility] Test [code = COLONOSCOPY SCREENING] Future Scheduled SH[facility]LES [facility]ACCINES [facility] (#1) [code = SHINGLES VACCINES (#1)] Future Scheduled BREAST CANCER [facility] Test SCREENING [code = BREAST CANCER SCREENING] Future Scheduled INFLUENZA VACCINE [facility] [code = INFLUENZA VACCINE] Encounters Start End Encounter Admission Attending Care Care Encounter Source Date/Time Date/Time Type Type Clinicians Facility Department ID 2021 2021-02-27 Inpatient EM ASHA Carcamo MEDI.01 [id number] [facility] 15:47:00 11:36:00 Shadi [id number] [facility] 2021-02-25 2021-02-25 Outpatient BETH Antunez LABO [id number] [facility] 18:45:00 18:45:00 Jaiden [id number] [facility] 2021-02-25 2021-02-25 Inpatient EM BRENDA AntunezPM MEDI.01 [id number] [facility] 13:02:00 13:01:00 Jaiden [id number] [facility] 2020-12-28 2020-12-28 Outpatient MHIE MHIE [id number] Memoria 15:45:00 15:45:00 00 l [place] 2020-07-02 2020-07-02 [facility] [id number] 14:38:00 16:16:00 Elier Chris 350.1.13.10 [place] [address].2.7.2.686 [place] [id number] 2020-04-29 2020-04-29 [facility] 1.2.253.616 [id number] 12:18:00 15:08:00 Zoraida Chris 350.1.13.10 [place] 4.2.7.2.686 [place] [address] [id number] 084 2020-03-17 2020-03-17 [facility] 1.2.112.279 [id number] 11:37:56 13:51:00 Elier Chris 350.1.13.10 [place] 4.2.7.2.686 [place] [address] [id number] 084 2020-03-17 2020-03-17 Orders Doctor WOLF 1.2.840.114 [id number] 00:00:00 00:00:00 Only Unassigned, JUANCARLOS 350.1.13.10 [place] [id number] [id number] 2018-12-10 2018-12-10 Outpatient [facility] [id number] Veloz 16:03:58 16:03:58 Health 2018-12-10 2018-12-10 Emergency [facility] [id number] Veloz 11:20:39 11:20:39 Health 2017-09-01 2017-09-01 Emergency [facility] [id number] Veloz 10:29:00 10:29:00 Health 2015-02-04 2015-02-05 Outpt Diag nullFlavo [facility] [id number] Memoria 13:00:00 04:59:00 Services r Outpatient 00 l [facility] [place] Morin 2015-02-04 2015-02-04 Outpatient Ashish, 2.16.840. 2.16.840.1. [id number] 08:00:00 23:59:00 Julian Zheng [id number]. [id number] 00 3.615.0.1 5.0.082 60 6179-05-11 2015-01-06 Outpatient [facility] [id number] Memoria 15:04:00 04:59:00 r [place] 31 l [facility] 2015-01-05 2015-01-05 Outpatient Silvano-Fu 2.16.840. 2.16.840. 1. [id number] 10:04:00 23:59:00 jono, 1.480961. 831190.3.61 31 Julita Sales 3.615.0.1 5.0.968 19 1736-09-23 2014-05-20 Bedded [facility] [id number] Memoria 11:14:00 19:30:00 Outpatient r [place] 00 l [facility] 2014-05-20 2014-05-20 Outpatient Tito, 2.16.840. 2.16.840.1. [id number] 06:14:00 14:30:00 Larry Woodson [id number]. [id number] 00 3.615.0.1 5.0.241 91 8040-05-05 2014-01-03 [facility] [id number] Memoria 07:50:00 03:00:00 r [place] 25 l [facility] 2013-12-30 2014-01-02 Outpatient Terminella, 2.16.840. 2.16.840. 1. [id number] 02:50:00 22:00:00 Rivera [id number]. [id number] 25 3.615.0.1 5.0.101 01 Results Test Description Test Time Test Comments Results Result Comments Source COMPREHENSIVE METABOLIC PANEL 2021-02-27 05:15:00 Test Item Value Reference Range Interpretation Comme nts SODIUM (test code = NA) 140 mmol/L 134-147 N POTASSIUM (test code = K) 3.8 mmol/L 3.4-5.0 N CHLORIDE (test code = CL) 104 mmol/L 100-108 N CARBON DIOXIDE (test code = CO2) 35 mmol/L 21-32 H ANION GAP (test code = GAP) 1.0 GAP calc 4.0-15.0 L GLUCOSE (test code = GLU) 108 MG/DL 70-110 N BLOOD UREA NITROGEN (test code = BUN) 8 MG/DL 7-18 N GLOMERULAR FILTRATION RATE (test code = GFR) >=60 max estimate estG FR >60 CREATININE (test code = CREAT) 0.6 MG/DL 0.6-1.0 N TOTAL PROTEIN (test code = PROT) 6.9 G/DL 6.4-8.2 N ALBUMIN (test code = ALB) 3.4 G/DL 3.4-5.0 N GLOBULIN (test code = GLOB) 3.5 GM/dL ALBUMIN/GLOBULIN RATIO (test code = A/G) 1.0 RATIO 1.2-2.2 L CALCIUM (test code = CA) 8.9 MG/DL 8.5-10.1 N BILIRUBIN TOTAL (test code = BILT) 0.50 MG/DL 0.2-1.2 N SGOT/AST (test code = AST) 59 Unit/L 15-37 H SGPT/ALT (test code = ALT) 102 Unit/L 12-78 H ALKALINE PHOSPHATASE TOTAL (test code = ALKP) 88 Unit/L 45-117 N GLUCOSE BEDSIDE [id number] 19:48:00 Test Item Value Reference Range Interpretation Comments GLUCOSE BEDSIDE TESTING (test code = 98 mg/dL 70-110 N GLUBED) - XR SMALL [id number] 19:38:00 [facility] 1965 Sex: F Name: RO MAYNARD [facility] : 1965Age/S: 56 / F [address] Unit #: [id number] Loc: [place] [address] Phys: Dawson Ramírez MD Acct: [id number] Dis Date: Status: ADM IN PHONE#: [phone] Exam Date: 2021 190 FAX #: Reason: evaluate for Crohn's EXAMS: CPT: [id number] XR SMALL BOWEL 32566 Fluoro Time:0 DAP (Gy m2): Air Kerma (mGy): Location of dictation: H 14 Small bowel follow-through: HISTORY: Right upper quadrant pain, evaluate for Crohn's disease. 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 No radiopaque densities noted. Linear opacity left lung base likely atelectasis or scarring. Kyphoplasty L2 with mild dextroscoliosis of the lumbar spine. Sequential images were obtained after oral administration of contrast. Transit time to the colon was between 1 and 2 hours. Small bowel loops including the terminal ileum demonstrate normal mucosal pattern. There is no evidence for obstruction. No intrinsic or extrinsic abnormality seen. The rightcolon also appears unremarkable. IMPRESSION: 1. No evidence for bowel obstruction. 2. Normal appearance of small bowel with no evidence to suggest Crohn's disease. at 1938 Reported and signed by: Guera Moore M.D.CC: Jaiden Antunez MD; Kamari Escalante MD; Dawson Ramírez MD PAGE 1 Signed Report Name: RO MAYNARD [facility] : 1965 Age/S: 56 / F [address] Unit #: [id number] Loc: [place] [address] Phys: Dawson Ramírez MD Acct: [id number] Dis Date: Status: ADM INPHONE #: [phone] Exam Date: 2021 1900 FAX #: Reason: evaluate for Crohn's EXAMS: CPT: [id number] XR SMALL BOWEL 05573 FluoroTime: 0 DAP (Gy m2): Air Kerma (mGy): <Continued> Technologist: Zainab Moran, RT(R)(CT)(MRI) Trnscb Date/Time: 2021 (1937) [place] Orig Print D/T: S: 2021 (1941) PAGE 2 Signed ReportGLUCOSE BEDSIDE [id number] 17:05:00 Test Item Value Reference Range Interpretation Comments GLUCOSE BEDSIDE TESTING (test code 148 mg/dL 70-110 H = GLUBED) - HEPA IMAG INCL GB W [id number] 16:10:00 [facility] 1965 Sex: F FAX: Jaiden Huff MD [phone] Camps: PM St: ADM FAX: Tisha Scott MD [phone] FAX: Dawson Hodge MD [phone] Name: RO MAYNARD : 1965 Age/S: 56/F [address] Unit #: [id number] Loc: [address] [place] [address] Phys: Dawson Ramírez Acct: [id number] Dis Date: Status:ADM IN PHONE #: [phone] Exam Date: 2021 1379 FAX #: Reason: RUQ pain EXAMS: CPT: [id number] HEPA IMAG INCL GB W PHA 29942 EXAMINATION: Nuclear medicine hepatobiliary scan withejection fraction determination INDICATION: RUQ pain COMPARISON: MRCP previous day LOCATION: S17 TECHNIQUE: Dynamic imaging was obtained of the upper abdomen following the administration of 5.2 mCi Tc-99m Choletec IV. Ejection fraction was determined following gallbladder stimulation with fatty meal (8 ounces of Ensure). FINDINGS: After the administration of tracer, relatively prompt hepatic uptake is seen. This is followed by biliary excretion and subsequent passage of tracer into the gallbladder and small bowel. Gallbladder ejection fraction is determined to be 62% at 60 minutes, within normal limits. IMPRESSION: 1. Scintigraphically patent cystic and common bile ducts. 2. Normal gallbladder ejection fraction. at 1610 Reported and signed by: Nathan Lujan M.D. CC: Jaiden Antunez MD; Kamari Escalante MD; Dawson Ramírez MD Technologist: MANUEL Kevin Transcribed Date/Time/By: 2021 (6290) :[place]1 Orig Print D/T: S: 2021 (8926) PAGE 1 Signed ReportGLUCOSE BEDSIDE [id number] 11:56:00 Test Item Value Reference Range Interpretation Comments GLUCOSE BEDSIDE TESTING (test code 131 mg/dL 70-110 H = GLUBED) CBC W/AUTO [id number] 06:20:00 Test Item Value Reference Range Interpretation Comments WHITE BLOOD CELL 3.9 K/mm3 3.5-11.0 N (test code = WBC) RED BLOOD CELL (test 3.81 M/mm3 4.70-6.10 L code = RBC) HEMOGLOBIN (test code 12.5 G/DL 10.4-14.9 N = HGB) HEMATOCRIT (test code 37.3 % 31.5-44.1 N = HCT) MEAN CELL VOLUME 97.9 Fl 84.5-98.6 N (test code = MCV) MEAN CELL HGB (test 32.8 pg 27.0-34.2 N code = MCH) MEAN CELL HGB 33.5 G/DL 31.5-34.0 N CONCETRATION (test code = MCHC) RED CELL DISTRIBUTION 12.2 SD 11.5-14.5 N WIDTH (test code = RDW) PLATELET COUNT (test 140 K/mm3 150-450 L code = PLT) MEAN PLATELET VOLUME 10.40 fL 7.0-10.5 N (test code = MPV) NEUTROPHIL % (test 64.6 % 40-76 code = NT%) IMMATURE GRANULOCYTE 0.5 % 0.0-5.0 N % (test code = IG%) LYMPHOCYTE % (test 28.9 % 20.5-51.1 N code = LY%) MONOCYTE % (test code 5.4 % 1.7-9.3 N = MO%) EOSINOPHIL % (test 0.3 % 0.0-6.0 N code = EO%) BASOPHIL % (test code 0.3 % 0.0-2.0 N = BA%) NUCLEATED RBC % (test 0.0 /100WBC% 0.0-1.0 N code = NRBC%) NEUTROPHIL # (test 2.5 K/mm3 1.8-7.6 N code = NT#) IMMATURE GRANULOCYTE 0.02 x10 3/uL 0.00-0.03 N # (test code = IG#) LYMPHOCYTE # (test 1.1 K/mm3 0.6-3.2 N code = LY#) MONOCYTE # (test code 0.2 K/mm3 0.3-1.1 L = MO#) EOSINOPHIL # (test 0.0 K/mm3 0.0-0.4 N code = EO#) BASOPHIL # (test code 0.0 K/mm3 0.0-0.1 N = BA#) NUCLEATED RBC # (test 0.0 K/mm3 0.0-0.1 N code = NRBC#) MANUAL DIFF REQUIRED NO DIFF/SCN CRITERIA SLIDE Brandon TONEY (test code = MDIFF) CONSISTA NT WITH AUTO DIFFERENTI AL. COMPREHENSIVE METABOLIC [id number] 04:48:00 Test Item Value Reference Range Interpretation Comments SODIUM (test code = NA) 143 mmol/L 134-147 N POTASSIUM (test code = 4.3 mmol/L 3.4-5.0 N K) CHLORIDE (test code = 111 mmol/L 100-108 H CL) CARBON DIOXIDE (test 30 mmol/L 21-32 N code = CO2) ANION GAP (test code = 2.0 GAP calc 4.0-15.0 L GAP) GLUCOSE (test code = 108 MG/DL 70-110 N GLU) BLOOD UREA NITROGEN 5 MG/DL 7-18 L (test code = BUN) GLOMERULAR FILTRATION >=60 max estimate >60 RATE (test code = GFR) estGFR CREATININE (test code = 0.6 MG/DL 0.6-1.0 N CREAT) TOTAL PROTEIN (test code 6.1 G/DL 6.4-8.2 L = PROT) ALBUMIN (test code = 3.1 G/DL 3.4-5.0 L ALB) GLOBULIN (test code = 3.0 GM/dL GLOB) ALBUMIN/GLOBULIN RATIO 1.0 RATIO 1.2-2.2 L (test code = A/G) CALCIUM (test code = CA) 8.0 MG/DL 8.5-10.1 L BILIRUBIN TOTAL (test 0.40 MG/DL 0.2-1.2 N code = BILT) SGOT/AST (test code = 67 Unit/L 15-37 H AST) SGPT/ALT (test code = 104 Unit/L 12-78 H ALT) ALKALINE PHOSPHATASE 85 Unit/L 45-117 N TOTAL (test code = ALKP) [id number] 04:48:00 Test Item Value Reference Range Interpretation Comments PHOSPHOROUS (test code = PHOS) 3.8 MG/DL 2.5-4.9 N [id number] 04:48:00 Test Item Value Reference Range Interpretation Comments MAGNESIUM (test code = MAG) 2.1 MG/DL 1.8-2.4 N COMPREHENSIVE METABOLIC [id number] 04:46:00 Test Item Value Reference Range Interpretation Comments SODIUM (test code = NA) 143 mmol/L 134-147 N POTASSIUM (test code = K) 4.3 mmol/L 3.4-5.0 N CHLORIDE (test code = CL) 111 mmol/L 100-108 H CARBON DIOXIDE (test code = CO2) 30 mmol/L 21-32 N ANION GAP (test code = GAP) 2.0 GAP calc 4.0-15.0 L GLUCOSE (test code = GLU) 108 MG/DL 70-110 N BLOOD UREA NITROGEN (test code = 5 MG/DL 7-18 L BUN) GLOMERULAR FILTRATION RATE (test estGFR >60 code = GFR) CREATININE (test code = CREAT) MG/DL 0.6-1.0 TOTAL PROTEIN (test code = PROT) G/DL 6.4-8.2 ALBUMIN (test code = ALB) G/DL 3.4-5.0 GLOBULIN (test code = GLOB) GM/dL ALBUMIN/GLOBULIN RATIO (test RATIO 1.2-2.2 code = A/G) CALCIUM (test code = CA) 8.0 MG/DL 8.5-10.1 L BILIRUBIN TOTAL (test code = MG/DL 0.2-1.2 BILT) SGOT/AST (test code = AST) Unit/L 15-37 SGPT/ALT (test code = ALT) Unit/L 12-78 ALKALINE PHOSPHATASE TOTAL (test Unit/L 45-117 code = ALKP) [id number] 04:46:00 Test Item Value Reference Range Interpretation Comments PHOSPHOROUS (test code = PHOS) MG/DL 2.5-4.9 [id number] 04:46:00 Test Item Value Reference Range Interpretation Comments MAGNESIUM (test code = MAG) MG/DL 1.8-2.4 [id number] 04:46:00 Test Item Value Reference Range Interpretation Comments TROPONIN-I (test < 0.015 NG/ML 0.000-0.045 N Negative: </= 0.045 code = TROPI) Positive: >/= 0.046 Correlation wit h serial results, other cardiac markers, and cl inical findings is nec essary to determine the c linical significance of this result. Quantit ative results using d ifferent methodologies s hould not be compared to one another as nume rical results may dexter yby method. Completed by Nursing: [id number] 04:46:00 Test Item Value Reference Range Interpretation Comments ALCOHOL (test code = ALC) < 3 MG/DL 0-10 N Completed by Nursing: NOCBC W/AUTO [id number] 04:36:00 Test Item Value Reference Range Interpretation Comments WHITE BLOOD CELL (test code = WBC) 3.9 K/mm3 3.5-11.0 N RED BLOOD CELL (test code = RBC) 3.81 M/mm3 4.70-6.10 L HEMOGLOBIN (test code = HGB) 12.5 G/DL 10.4-14.9 N HEMATOCRIT (test code = HCT) 37.3 % 31.5-44.1 N MEAN CELL VOLUME (test code = MCV) 97.9 Fl 84.5-98.6 N MEAN CELL HGB (test code = MCH) 32.8 pg 27.0-34.2 N MEAN CELL HGB CONCETRATION (test 33.5 G/DL 31.5-34.0 N code = MCHC) RED CELL DISTRIBUTION WIDTH (test SD 11.5-14.5 N code = RDW) PLATELET COUNT (test code = PLT) 140 K/mm3 150-450 L MEAN PLATELET VOLUME (test code = fL 7.0-10.5 N MPV) NEUTROPHIL % (test code = NT%) % 40-76 IMMATURE GRANULOCYTE % (test code % 0.0-5.0 N = IG%) LYMPHOCYTE % (test code = LY%) % 20.5-51.1 N MONOCYTE % (test code = MO%) % 1.7-9.3 N EOSINOPHIL % (test code = EO%) % 0.0-6.0 N BASOPHIL % (test code = BA%) % 0.0-2.0 N NUCLEATED RBC % (test code = /100WBC% 0.0-1.0 N NRBC%) NEUTROPHIL # (test code = NT#) K/mm3 1.8-7.6 N IMMATURE GRANULOCYTE # (test code x10 3/uL 0.00-0.03 N = IG#) LYMPHOCYTE # (test code = LY#) K/mm3 0.6-3.2 N MONOCYTE # (test code = MO#) K/mm3 0.3-1.1 L EOSINOPHIL # (test code = EO#) K/mm3 0.0-0.4 N BASOPHIL # (test code = BA#) K/mm3 0.0-0.1 N NUCLEATED RBC # (test code = K/mm3 0.0-0.1 N NRBC#) MANUAL DIFF REQUIRED (test code = DIFF/SCN CRITERIA MDIFF) DRUGS OF ABUSE SCREEN [id number] 21:43:00 Test Item Value Reference Range Interpretation Comments URN COCAINE (test NEGATIVE See_Comment [Automate d code = COCAURN) SCcutoff message] The system which generated this result transmit ulysses reference range : <300 NG/ML. The reference range was not used to interpret this result as normal/abnormal . URN CANNABINOIDS POSITIVE See_Comment A [Automated (test code = SCcutoff message] The CANNABURN) system which generated this result transmit ulysses reference range : <50 NG/ML. The reference range was not used to interpret this result as normal/abnormal . URN AMPHETAMINE (test NEGATIVE See_Comment [Auto mated code = AMPHETURN) SCcutoff message] T he system which generated this result transmit ulysses reference range : <1000 NG/ML. Th e reference range was not used to interpret this result as normal/abnormal . URN BARBITURATE (test NEGATIVE See_Comment [Auto mated code = BARBITURN) SCcutoff message] T he system which generated this result transmit ulysses reference range : <200 NG/ML. The reference range was not used to interpret this result as normal/abnormal . URN BENZODIAZEPINE NEGATIVE See_Comment [Automat ed (test code = SCcutoff message] The BENZOURN) system which generated this result transmit ulysses reference range : <200 NG/ML. The reference range was not used to interpret this result as normal/abnormal . URN OPIATES (test POSITIVE See_Comment A [Automate d code = OPIATURN) SCcutoff message] Th e system which generated this result transmit ulysses reference range : <2000 NG/ML. e reference range was not used to interpret this result as normal/abnormal . URN PHENCYCLIDINE NEGATIVE See_Comment [Automate d (PCP) (test code = SCcutoff message] The PHENCURN) system which generated this result transmit ulysses reference range : <25 NG/ML. The reference range was not used to interpret this result as normal/abnormal . URN METHADONE (test NEGATIVE See_Comment [Automa ulysses code = METHAURN) SCcutoff message] e system which generated this result transmit ulysses reference range : <300 NG/ML. The reference range was not used to interpret this result as normal/abnormal . - MRI [id number] 19:05:00 [facility] 1965 Sex: F FAX: Jaiden Huff MD [phone] Camps: PM St: ADM FAX: Tisha Scott MD [phone] Name: RO MAYNARD [facility] : 1965 Age/S: 55/F [id number] Unit #: [id number] Loc: [place] [address] Phys: Jaiden Antunez MDAcct: [id number] Dis Date: Status: ADM IN PHONE #: [phone] Exam Date: 02/25/2021 1836 FAX #: Reason: deranged lfts, ruq pain EXAMS: CPT: [id number] MRI MRCP [id number] Location: H 31 MRI ABDOMEN WITHOUT CONTRAST/M LOOM CHECKER HISTORY: Abnormal LFTs. R ight upper quadrant pain COMPARISON: None available TECHNIQUE: Coronal SSFSE, axial 2-D fiesta, axial SSFSE, coronal 3-D MRCP, MRCP 2-D thick slab. FINDINGS: No gallstones or gallbladder wall thickening. No filling defects in the CBD to suggest choledocholithiasis. CBD measures 7 mm diameter is in tip is normally. Liver is of normal size. Punctate cyst in the left lobe. Spleen is of normal size Kidneys and adrenal glands demonstrate no acute findings. Pancreas is mildly atrophic. Pancreatic duct is visualized without significant dilatation or side branch ectasia. No evidence of ascites.No bowel obstruction. IMPRESSION: 1. No evidence of cholelithiasis or cholecystitis. 2. No evidence of choledocholithiasis. No biliary dilatation. t 1904 Reported and signed by: Sandi Redding MD CC: Jaiden Antunez MD; Kamari Escalante MD Technologist: Renee Mills RT(R)(CT) Transcribed Date/Time/By: 02/25/2021 (1904) :[email or web address] Orig Print D/T: S: 02/25 (1907) PAGE 1 Signed Report COVID 19 INHOUSE [id number] 16:22:00 Test Item Value Reference Range Interpretation Comments COVID 19 INHOUSE AG NEGATIVE Negative Per manu facturer, (test code = negative result s should [id number]) be treated aspr esumptive and, if inconsi stent with clinical signs andsymptoms or necessary for patient man agement, should betested with an alternative mol ecular assay. Negative resultsdo not preclude SA RS-CoV-2 infection and s hould not be usedas the s ole basis for patient man agement decisions. Neg ative results should be considered in t he context of apatient's r ecent exposures, hist ory, presence of cli nicalsigns and symptoms co nsistent with COVID-19. CBC W/AUTO [id number] 15:38:00 Test Item Value Reference Range Interpretation Comments WHITE BLOOD CELL 5.3 K/mm3 3.5-11.0 N (test code = WBC) RED BLOOD CELL (test 3.95 M/mm3 4.70-6.10 L code = RBC) HEMOGLOBIN (test code 13.0 G/DL 10.4-14.9 N = HGB) HEMATOCRIT (test code 38.7 % 31.5-44.1 N = HCT) MEAN CELL VOLUME 98.0 Fl 84.5-98.6 N (test code = MCV) MEAN CELL HGB (test 32.9 pg 27.0-34.2 N code = MCH) MEAN CELL HGB 33.6 G/DL 31.5-34.0 N CONCETRATION (test code = MCHC) RED CELL DISTRIBUTION 11.9 SD 11.5-14.5 N WIDTH (test code = RDW) PLATELET COUNT (test 136 K/mm3 150-450 L code = PLT) MEAN PLATELET VOLUME 10.20 fL 7.0-10.5 N (test code = MPV) NEUTROPHIL % (test 57.4 % 40-76 N code = NT%) IMMATURE GRANULOCYTE 0.6 % 0.0-5.0 N % (test code = IG%) LYMPHOCYTE % (test 33.6 % 20.5-51.1 N code = LY%) MONOCYTE % (test code 7.4 % 1.7-9.3 N = MO%) EOSINOPHIL % (test 0.8 % 0.0-6.0 N code = EO%) BASOPHIL % (test code 0.2 % 0.0-2.0 N = BA%) NUCLEATED RBC % (test 0.0 /100WBC% 0.0-1.0 N code = NRBC%) NEUTROPHIL # (test 3.1 K/mm3 1.8-7.6 N code = NT#) IMMATURE GRANULOCYTE 0.03 x10 3/uL 0.00-0.03 N # (test code = IG#) LYMPHOCYTE # (test 1.8 K/mm3 0.6-3.2 N code = LY#) MONOCYTE # (test code 0.4 K/mm3 0.3-1.1 N = MO#) EOSINOPHIL # (test 0.0 K/mm3 0.0-0.4 N code = EO#) BASOPHIL # (test code 0.0 K/mm3 0.0-0.1 N = BA#) NUCLEATED RBC # (test 0.0 K/mm3 0.0-0.1 N code = NRBC#) MANUAL DIFF REQUIRED NO DIFF/SCN CRITERIA SLIDE R MEKHIW (test code = MDIFF) CONSISTA NT WITH AUTO DIFFERENTIAL.NO PLT CLUMPS OBSERVED RBC [id number] 15:38:00 Test Item Value Reference Range Interpretation Comments PLATELET ESTIMATE (test ADEQUATE THOUSAND ADEQUATE code = PLTEST) PLATELET MORPHOLOGY (test NORMAL code = PLTMORPH) CBC W/AUTO [id number] 15:33:00 Test Item Value Reference Range Interpretation Comments WHITE BLOOD CELL (test code = 5.3 K/mm3 3.5-11.0 N WBC) RED BLOOD CELL (test code = 3.95 M/mm3 4.70-6.10 L RBC) HEMOGLOBIN (test code = HGB) 13.0 G/DL 10.4-14.9 N HEMATOCRIT (test code = HCT) 38.7 % 31.5-44.1 N MEAN CELL VOLUME (test code = 98.0 Fl 84.5-98.6 N MCV) MEAN CELL HGB (test code = MCH) 32.9 pg 27.0-34.2 N MEAN CELL HGB CONCETRATION 33.6 G/DL 31.5-34.0 N (test code = MCHC) RED CELL DISTRIBUTION WIDTH 11.9 SD 11.5-14.5 N (test code = RDW) PLATELET COUNT (test code = K/mm3 150-450 PLT) MEAN PLATELET VOLUME (test code fL 7.0-10.5 N = MPV) NEUTROPHIL % (test code = NT%) 57.4 % 40-76 N IMMATURE GRANULOCYTE % (test 0.6 % 0.0-5.0 N code = IG%) LYMPHOCYTE % (test code = LY%) 33.6 % 20.5-51.1 N MONOCYTE % (test code = MO%) 7.4 % 1.7-9.3 N EOSINOPHIL % (test code = EO%) 0.8 % 0.0-6.0 N BASOPHIL % (test code = BA%) 0.2 % 0.0-2.0 N NUCLEATED RBC % (test code = 0.0 /100WBC% 0.0-1.0 N NRBC%) NEUTROPHIL # (test code = NT#) 3.1 K/mm3 1.8-7.6 N IMMATURE GRANULOCYTE # (test 0.03 x10 3/uL 0.00-0.03 N code = IG#) LYMPHOCYTE # (test code = LY#) 1.8 K/mm3 0.6-3.2 N MONOCYTE # (test code = MO#) 0.4 K/mm3 0.3-1.1 N EOSINOPHIL # (test code = EO#) 0.0 K/mm3 0.0-0.4 N BASOPHIL # (test code = BA#) 0.0 K/mm3 0.0-0.1 N NUCLEATED RBC # (test code = 0.0 K/mm3 0.0-0.1 N NRBC#) MANUAL DIFF REQUIRED (test code DIFF/SCN CRITERIA = MDIFF) CBC W/AUTO [id number] 15:33:00 Test Item Value Reference Range Interpretation Comments WHITE BLOOD CELL (test code = 5.3 K/mm3 3.5-11.0 N WBC) RED BLOOD CELL (test code = 3.95 M/mm3 4.70-6.10 L RBC) HEMOGLOBIN (test code = HGB) 13.0 G/DL 10.4-14.9 N HEMATOCRIT (test code = HCT) 38.7 % 31.5-44.1 N MEAN CELL VOLUME (test code = 98.0 Fl 84.5-98.6 N MCV) MEAN CELL HGB (test code = MCH) 32.9 pg 27.0-34.2 N MEAN CELL HGB CONCETRATION 33.6 G/DL 31.5-34.0 N (test code = MCHC) RED CELL DISTRIBUTION WIDTH 11.9 SD 11.5-14.5 N (test code = RDW) PLATELET COUNT (test code = K/mm3 150-450 PLT) MEAN PLATELET VOLUME (test code fL 7.0-10.5 N = MPV) NEUTROPHIL % (test code = NT%) 57.4 % 40-76 N IMMATURE GRANULOCYTE % (test 0.6 % 0.0-5.0 N code = IG%) LYMPHOCYTE % (test code = LY%) 33.6 % 20.5-51.1 N MONOCYTE % (test code = MO%) 7.4 % 1.7-9.3 N EOSINOPHIL % (test code = EO%) 0.8 % 0.0-6.0 N BASOPHIL % (test code = BA%) 0.2 % 0.0-2.0 N NUCLEATED RBC % (test code = 0.0 /100WBC% 0.0-1.0 N NRBC%) NEUTROPHIL # (test code = NT#) 3.1 K/mm3 1.8-7.6 N IMMATURE GRANULOCYTE # (test 0.03 x10 3/uL 0.00-0.03 N code = IG#) LYMPHOCYTE # (test code = LY#) 1.8 K/mm3 0.6-3.2 N MONOCYTE # (test code = MO#) 0.4 K/mm3 0.3-1.1 N EOSINOPHIL # (test code = EO#) 0.0 K/mm3 0.0-0.4 N BASOPHIL # (test code = BA#) 0.0 K/mm3 0.0-0.1 N NUCLEATED RBC # (test code = 0.0 K/mm3 0.0-0.1 N NRBC#) MANUAL DIFF REQUIRED (test code DIFF/SCN CRITERIA = MDIFF) BASIC METABOLIC [id number] 14:26:00 Test Item Value Reference Range Interpretation Comments SODIUM (test code = NA) 140 mmol/L 134-147 N POTASSIUM (test code = 3.8 mmol/L 3.4-5.0 N K) CHLORIDE (test code = 105 mmol/L 100-108 N CL) CARBON DIOXIDE (test 32 mmol/L 21-32 N code = CO2) ANION GAP (test code = 3.0 GAP calc 4.0-15.0 L GAP) GLUCOSE (test code = 83 MG/DL 70-110 N GLU) BLOOD UREA NITROGEN 7 MG/DL 7-18 N (test code = BUN) GLOMERULAR FILTRATION >=60 max estimate >60 RATE (test code = GFR) estGFR CREATININE (test code = 0.8 MG/DL 0.6-1.0 N CREAT) CALCIUM (test code = CA) 8.7 MG/DL 8.5-10.1 N HEPATIC FUNCTION [id number] 14:26:00 Test Item Value Reference Range Interpretation Comments TOTAL PROTEIN (test code = PROT) 6.9 G/DL 6.4-8.2 N ALBUMIN (test code = ALB) 3.5 G/DL 3.4-5.0 N BILIRUBIN TOTAL (test code = BILT) 0.50 MG/DL 0.2-1.2 N BILIRUBIN DIRECT (test code = 0.20 MG/DL 0.00-0.30 N BILD) BILIRUBIN INDIRECT (test code = 0.30 MG/DL 0.2-1.2 N BILIND) SGOT/AST (test code = AST) 89 Unit/L 15-37 H SGPT/ALT (test code = ALT) 121 Unit/L 12-78 H ALKALINE PHOSPHATASE TOTAL (test 93 Unit/L 45-117 N code = ALKP) [id number] 14:26:00 Test Item Value Reference Range Interpretation Comments LIPASE (test code = LIP) 95 Unit/L 114-286 L UA RFLX MICR CULT IF [id number] 14:10:00 Test Item Value Reference Range Interpretation Comments UA COLOR (test code = COLU) YELLOW discript YEL/STRAW UA APPEARANCE (test code = CLEAR discript CLEAR APPU) UA GLUCOSE DIPSTICK (test NEGATIVE mg/dL NEG code = DGLUU) UA BILIRUBIN DIPSTICK (test NEGATIVE mg/dL NEG code = BILU) UA KETONE DIPSTICK (test NEGATIVE mg/dL NEG code = KETU) UA SPECIFIC GRAVITY (test <=1.005 SG 1.005-1.030 code = SGU) UA BLOOD DIPSTICK (test NEGATIVE mg/DL NEG code = LAUREL) UA PH DIPSTICK (test code = 7.0 pH UNITS 5.0-7.0 CHRIS) UA PROTEIN DIPSTICK (test NEGATIVE mg/dL NEG code = PROU) UA UROBILINIOGEN DIPSTICK 0.2 mg/dL <2.0 (test code = URO) UA NITRITE DIPSTICK (test NEGATIVE SCREEN NEG code = JUAN MANUEL) UA LEUKOCYTE ESTERASE NEGATIVE Leuk/mcL NEGATIVE DIPSTICK (test code = LEUU) UA CULTURE NEEDED? (test Criteria Culture CHK code = UACULT) Indication for culture: RiskForSepsis-no oth srcUA RFLX MICR CULT IF [id number] 14:10:00 Test Item Value Reference Range Interpretation Comments UA COLOR (test code = YELLOW discript YEL/STRAW COLU) UA APPEARANCE (test code CLEAR discript CLEAR = APPU) UA GLUCOSE DIPSTICK (test NEGATIVE mg/dL NEG code = DGLUU) UA BILIRUBIN DIPSTICK NEGATIVE mg/dL NEG (test code = BILU) UA KETONE DIPSTICK (test NEGATIVE mg/dL NEG code = KETU) UA SPECIFIC GRAVITY (test <=1.005 SG 1.005-1.030 code = SGU) UA BLOOD DIPSTICK (test NEGATIVE mg/DL NEG code = LAUREL) UA PH DIPSTICK (test code 7.0 pH UNITS 5.0-7.0 = CHRIS) UA PROTEIN DIPSTICK (test NEGATIVE mg/dL NEG code = PROU) UA UROBILINIOGEN DIPSTICK 0.2 mg/dL <2.0 (test code = URO) UA NITRITE DIPSTICK (test NEGATIVE SCREEN NEG code = JUAN MANUEL) UA LEUKOCYTE ESTERASE NEGATIVE Leuk/mcL NEGATIVE DIPSTICK (test code = LEUU) UA CULTURE NEEDED? (test NO, WBC<10 Criteria Culture CHK code = UACULT) Indication for culture: RiskForSepsis-no [facility] W/AUTO [id number] 14:04:00 Test Item Value Reference Range Interpretation Comments WHITE BLOOD CELL (test code = WBC) 5.3 K/mm3 3.5-11.0 N RED BLOOD CELL (test code = RBC) 3.95 M/mm3 4.70-6.10 L HEMOGLOBIN (test code = HGB) 13.0 G/DL 10.4-14.9 N HEMATOCRIT (test code = HCT) 38.7 % 31.5-44.1 N MEAN CELL VOLUME (test code = MCV) 98.0 Fl 84.5-98.6 N MEAN CELL HGB (test code = MCH) 32.9 pg 27.0-34.2 N MEAN CELL HGB CONCETRATION (test 33.6 G/DL 31.5-34.0 N code = MCHC) RED CELL DISTRIBUTION WIDTH (test SD 11.5-14.5 N code = RDW) PLATELET COUNT (test code = PLT) K/mm3 150-450 MEAN PLATELET VOLUME (test code = fL 7.0-10.5 N MPV) NEUTROPHIL % (test code = NT%) % 40-76 N IMMATURE GRANULOCYTE % (test code % 0.0-5.0 N = IG%) LYMPHOCYTE % (test code = LY%) % 20.5-51.1 N MONOCYTE % (test code = MO%) % 1.7-9.3 N EOSINOPHIL % (test code = EO%) % 0.0-6.0 N BASOPHIL % (test code = BA%) % 0.0-2.0 N NUCLEATED RBC % (test code = /100WBC% 0.0-1.0 N NRBC%) NEUTROPHIL # (test code = NT#) K/mm3 1.8-7.6 N IMMATURE GRANULOCYTE # (test code x10 3/uL 0.00-0.03 N = IG#) LYMPHOCYTE # (test code = LY#) K/mm3 0.6-3.2 N MONOCYTE # (test code = MO#) K/mm3 0.3-1.1 N EOSINOPHIL # (test code = EO#) K/mm3 0.0-0.4 N BASOPHIL # (test code = BA#) K/mm3 0.0-0.1 N NUCLEATED RBC # (test code = K/mm3 0.0-0.1 N NRBC#) MANUAL DIFF REQUIRED (test code = DIFF/SCN CRITERIA MDIFF) CHEM [id number] 14:26:008[facility]ann[facility] [id number] 14:26:0091 [facility] HermannCHEM [id number] 14:26:0029[facility]annCHEM PANEL 2014-05-19 14:26:006.7[facility]annCHE[facility] [id number] 14:26:0086[facility]annCHEM AVGCK3486-53-22 14:26:000.8[facility]annCHEM TPZQZ0256-94-78 14:26:90636Szziynuf HermannCHEM SNAWN3114-80-00 14:26:003.7[facility]annCHEM [id number] 14:26:04632Jdbigwyr HermannCHEM [id number] 14:26:009.7 [facility] PjmtfndWBQTUYNTCF9287-69-23 14:26:28204.6[facility] HermannHEMATOLOGY 2014-05-19 14:26:00 Test Item Value Reference Range Interpretation Comments MCH (test code = MCH) 35.5 pg 27.0-31.0 [facility]GiczzedHLRENJVCAD5542-42-24 14:26:0013.3[facility] HermannHEMATOLOGY 2014-05-19 14:26:0037.9[facility] ZezmrgjHNGVHZLPNU3925-09-12 14:26:003.73[facility] MswkbgoHCUWBDMGND6005-06-32 14:26:006.1[facility] AnfwzyoTHGZKTMBUX1959-62-84 14:26:008.0[facility] EeobbadIVWIOXEXPS4716-63-90 14:26:0017.2[facility] [place] IWMMYENEBZ6187-19-84 14:26:92242Dbteipzh FaibcgcCLJTKVCUFM3465-23-88 14:26:00 35.0[facility] MtqwpekIZBDHPWCNA8189-23-50 14:26:000.93[facility]annHEMATOLOGY 2014-05-19 14:26:00 Test Item Value Reference Range Interpretation Comments PT (test code = PT) 12.4 s 12.0-14.7 [facility] UruptsaSHAMLGGEAG3460-24-93 09:42:003.80[facility]annHEMATOLOGY 2014-01-01 09:42:00 Test Item Value Reference Range Interpretation Comments MCH (test code = MCH) 31.1 pg 27.0-31.0 [facility] CkyrucfBHLANGHNSK7980-56-00 09:42:0011.8[facility]annHEMATOLOGY 2014-01-01 09:42:0034.5[facility] XstvgomELPEDMRUTK1078-67-05 09:42:0090.6[facility] JotllrcVSOFKRXOSR7888-54-60 09:42:0016.3[facility] DjwkbdnTHJXPXMXET2171-77-09 09:42:0034.3[facility] RycqdkeSEPCKZJPVQ9556-55-10 09:42:29359Nddbipuz [place] JNQHOZDCDJ5173-38-00 09:42:007.9[facility] VillyewHBSJJZILJM9438-45-66 09:42:001.6 [facility] VkmuvcqFGIKIRIWFA1481-70-02 09:42:000.2[facility]annHEMATOLOGY 2014-01-01 09:42:002.6[facility] MgoinukKCGGJEQAMW7411-95-94 09:42:007.4[facility] EpptpbxQMNKNPBPEF6184-29-51 09:42:001.3[facility] EqlcibmTZNCPZOCON0613-45-97 09:42:000.3[facility] EoosmczRYLQWSRYYO6333-65-06 09:42:000.1[facility] [place] XGUZRDXLEY9583-33-76 09:42:000.0[facility] BroruhpDHIAFSPJMW7769-49-16 09:42:00 30.7[facility] CesfhtbPJMJEGWCUQ3472-46-38 09:42:0060.1[facility] HermannCHEM PANEL 2014-01-01 09:42:002.0[facility] HermannCHEM PRMNB9769-72-19 09:42:68210Qungwgpq HermannCHEM OSXCV0582-49-30 09:42:004[facility]annCHEM FKRZV1221-71-36 09:42:003.8[facility]annCHEM QHPNA7589-35-97 09:42:000.5[facility]annCHEM OZUIG0032-67-22 09:42:0094[facility]annCHE[facility] QDNVL2743-18-35 09:42:56687 [facility]annCHE[facility] OBWVQ7912-40-88 09:42:008.7[facility]annCHEM PANEL 2014-01-01 09:42:80164Mxaqluat HermannCHEM ITPMA6918-81-38 09:42:0030[facility]annCHE[facility] TWGLH3759-60-79 09:42:0010.8[facility] GbimoajGCAYIINNRZ1785-46-68 09:42:004.4[facility]annCHEM LUJOI7342-27-68 12:13:001.8[facility]annCHEM CXRZO4564-14-24 12:13:002.6[facility]annCHE[facility] QOUOC9450-11-45 12:13:002.8 [facility]annCHE[facility] XNLSB1750-52-00 12:13:001.2[facility]annCHEM PANEL 2013-12-30 12:13:0010[facility]annCHEM YDHPB8273-08-51 12:13:006.9[facility]annCHEM RIUVX6993-36-64 12:13:00273Vjezhqqf [facility]annCHEM DRREH8123-97-15 12:13:0084[facility]annCHEM PMEMK7542-81-97 12:13:003.9[facility]annCHEM EWDVB1794-88-93 12:13:12737Zijnkggg [facility]annCHEM PHTQG0095-91-83 12:13:000.7 [facility]annCHE[facility] OLGNM3653-23-19 12:13:007[facility]annCHEM PANEL 2013-12-30 12:13:000.3[facility]annCHEM THQOZ1335-82-65 12:13:0071[facility]annCHEM HBBKJ0036-11-11 12:13:0021[facility]annCHEM VHAJP4165-24-83 12:13:0020[facility]annCHE[facility] PTUHY2260-35-64 12:13:006.1[facility]annCHEM CMQSN9443-07-11 12:13:0033[facility]annCHEM AKBEF5793-75-46 12:13:003.3 [facility]annCHE[facility] BHYGA6967-86-89 12:13:008.4[facility] HermannCHEM PANEL 2013-12-30 12:13:02098Bmdelzxx DkwnqszJGEJHSZAWU7397-20-59 12:13:000.0[facility] BzrczcaBRLPMVMZGC0264-74-37 12:13:0063.5[facility] UyqxcvpVQHSFSGZZO1006-01-15 12:13:000.3[facility] HboujekLTIADEVGVH9193-60-69 12:13:000.2[facility] [place] IIHFBSSGQR5511-83-79 12:13:001.5[facility] WymffnmDVKIUPHFDJ7263-14-03 12:13:003.3 [facility] HhbzugjPJLSPYLRND6805-67-35 12:13:000.1[facility] HermannHEMATOLOGY 2013-12-30 12:13:0028.9[facility] XftnqyrIBPYFWRQOH1392-43-73 12:13:006.2[facility] IjrtlbmMOICODOJDF8349-82-06 12:13:001.2[facility] RmlvqwbBBMFEMBCRZ5048-82-74 12:13:0034.3[facility] PqbydyvJTWOOZLGUF2810-67-12 12:13:0016.5[facility] [place] VHJPXPBRDC8488-56-41 12:13:00 Test Item Value Reference Range Interpretation Comments MCH (test code = MCH) 31.5 pg 27.0-31.0 [facility]MzfpkdgZYDMZFBYZX9031-54-19 12:13:0091.9[facility] HermannHEMATOLOGY 2013-12-30 12:13:87259Dxqmkjtj MeaaknxVUJGGRQYYB3777-97-60 12:13:007.9[facility] YrgpzggWZGDPIHKYP9198-87-28 12:13:003.91[facility] PwrqftgMHJDWIDMHV3661-15-87 12:13:0035.9[facility] NzzpkykIHMOGNAMEN6733-02-79 12:13:0012.3[facility] [place] FIKAQKTWPB6564-36-45 12:13:005.1[facility] [place]
[2021-04-12] MEDS ORDERED: METHYLPREDNISOLONE 125 MG INJ ONE (13:01)
--- NOTE | 2021-04-12 14:06 | ER ---
Nurse's Notes [facility] Name: Tita Elizabeth Age: 56 yrs Sex: Female : 1965 Arrival Date: 04/12/2021 Time: 09:20 Bed Waiting Private MD: Diagnosis: Presentation: 04/12 10:11 Chief complaint: Patient states: Swelling to bilateral hands, feet and face that began ss 2 days ago. I have Rheumatoid arthritis and I don't know if that's it or not.". Coronavirus screen: Client denies travel out of the [place] in the last 14 days. Ebola Screen: Patient denies exposure to infectious person. Patient denies travel to an Ebola-affected area in the 21 days before illness onset. Initial Sepsis Screen: Does the patient meet any 2 criteria? No. Patient's initial sepsis screen is negative. Does the patient have a suspected source of infection? No. Patient's initial sepsis screen is negative. Risk Assessment: Do you want to hurt yourself or someone else? Patient reports no desire to harm self or others. Onset of symptoms was April 10, 2021. 10:11 Method Of Arrival: Ambulatory ss 10:11 Acuity: JAY 3 ss Historical: - Allergies: 10:11 Sulfa (Sulfonamide Antibiotics); ss - PMHx: 10:11 Arthritis; chron's; Hypertension; immune disorder; lyme disease; ss - PSHx: 10:11 Appendectomy; bladder sling; hysterectomy; Tonsillectomy; ss - Immunization history:: Client reports having NOT received the Covid vaccine. - Social history:: Smoking status: Patient reports the use of cigarette tobacco products, smokes one-half pack cigarettes per day. Assessment: 14:06 Reassessment: It appears patient left while awaiting to have her XRAY. ss Vital Signs: 10:11 Pulse 77; Resp 16; Temp 97.9(TE); Pulse Ox 97% on R/A; Weight 58.97 kg; Height 5 ft. 3 ss in. (160.02 cm); Pain 7/10; 10:11 BP 145 / 77; ss 10:11 Body Mass Index 23.03 (58.97 kg, 160.02 cm) ED Course: 09:20 Patient arrived in ED. mr 10:11 Arm band placed on right wrist. ss 10:13 Triage completed. ss 12:23 Ngozi Ashley is Attending Physician. sp3 Administered Medications: 12:40 Drug: SOLU-Medrol (methylPREDNISolone sodium succinate) 125 mg Route: IM; Site: right ss gluteus; 14:05 Follow up: Response: No adverse reaction ss Outcome: 14:06 Patient left the ED. ss Signatures: Ingrid Cosme Shelby, RN RN ss Ngozi Ashley sp3
--- NOTE | 2021-04-12 14:06 | EDPHYS ---
Physician Documentation [facility] Name: Tita Elizabeth Age: 56 yrs Sex: Female : 1965 Arrival Date: 04/12/2021 Time: 09:20 Bed Waiting Private MD: [email or web address] Physician Ngozi Ashley HPI: 04/12 12:32 This 56 yrs old Female presents to ER via Ambulatory with complaints of sp3 Wheezing, Swelling. 12:32 56-year-old female with a history of rheumatoid arthritis, Crohn's disease, sp3 hypertension who presents for body wide swelling and joint aches and some mild subjective wheezing. Patient denies fever, cough, productive cough, shortness of breath, dyspnea on exertion, chest pain, abdominal pain, nausea, vomiting, diarrhea, or any other ROS at this time. Patient states that she feels how she feels previously during her arthritis flareups. She has been on Humira in the past but is not currently approved. She is also been on steroids in the past and is not on any current steroids or maintenance therapy for her arthritis.. Historical: - Allergies: 10:11 Sulfa (Sulfonamide Antibiotics); ss - PMHx: 10:11 Arthritis; chron's; Hypertension; immune disorder; lyme disease; ss - PSHx: 10:11 Appendectomy; bladder sling; hysterectomy; Tonsillectomy; ss - Immunization history:: Client reports having NOT received the Covid vaccine. - Social history:: Smoking status: Patient reports the use of cigarette tobacco products, smokes one-half pack cigarettes per day. ROS: 12:34 Constitutional: Negative for fever, chills, and weight loss, Eyes: Negative for injury, sp3 pain, redness, and discharge, ENT: Negative for injury, pain, and discharge, Neck: Negative for injury, pain, and swelling, Cardiovascular: Negative for chest pain, palpitations, and edema, Abdomen/GI: Negative for abdominal pain, nausea, vomiting, diarrhea, and constipation, Back: Negative for injury and pain, MS/Extremity: Negative for injury and deformity, Skin: Negative for injury, rash, and discoloration, Neuro: Negative for headache, weakness, numbness, tingling, and seizure, Psych: Negative for depression, anxiety, suicide ideation, homicidal ideation, and hallucinations, Allergy/Immunology: Negative for hives, rash, and allergies, Endocrine: Negative for neck swelling, polydipsia, polyuria, polyphagia, and marked weight changes, Hematologic/Lymphatic: Negative for swollen nodes, abnormal bleeding, and unusual bruising. Exam: 12:35 Constitutional: This is a well developed, well nourished patient who is awake, alert, sp3 and in no acute distress. Head/Face: Normocephalic, atraumatic. Eyes: Pupils equal round and reactive to light, extra-ocular motions intact. Lids and lashes normal. Conjunctiva and sclera are non-icteric and not injected. Cornea within normal limits. Periorbital areas with no swelling, redness, or edema. ENT: Nares patent. No nasal discharge, no septal abnormalities noted. External auditory canals are clear. Oropharynx with no redness, swelling, or masses, exudates, or evidence of obstruction, uvula midline. Mucous membranes moist. Neck: Trachea midline, no thyromegaly or masses palpated, and no cervical lymphadenopathy. Supple, full range of motion without nuchal rigidity, or vertebral point tenderness. No Meningismus. Chest/axilla: Normal chest wall appearance and motion. Nontender with no deformity. No lesions are appreciated. Cardiovascular: Regular rate and rhythm with a normal S1 and S2. No gallops, murmurs, or rubs. Normal PMI, no JVD. No pulse deficits. Respiratory: Lungs have equal breath sounds bilaterally, clear to auscultation and percussion. No rales, rhonchi or wheezes noted. No increased work of breathing, no retractions or nasal flaring. Abdomen/GI: Soft, non-tender, with normal bowel sounds. No distension or tympany. No guarding or rebound. No evidence of tenderness throughout. Back: No spinal tenderness. No costovertebral tenderness. Full range of motion. MS/ Extremity: Pulses equal, no cyanosis. Neurovascular intact. Full, normal range of motion. Neuro: Awake and alert, GCS 15, oriented to person, place, time, and situation. Cranial nerves II-XII grossly intact. Motor strength 5/5 in all extremities. Sensory grossly intact. Cerebellar exam normal. Normal gait. Psych: Awake, alert, with orientation to person, place and time. Behavior, mood, and affect are within normal limits. 12:35 Neuro: Patient has subjective swelling in bilateral lower extremities. On my exam she has questionable 1+ nonpitting edema in both ankle areas bilaterally. No pitting edema or significant findings.. Vital Signs: 10:11 Pulse 77; Resp 16; Temp 97.9(TE); Pulse Ox 97% on R/A; Weight 58.97 kg; Height 5 ft. 3 ss in. (160.02 cm); Pain 7/10; 10:11 BP 145 / 77; ss 10:11 Body Mass Index 23.03 (58.97 kg, 160.02 cm) ss MDM: 12:37 ED course: Will obtain chest x-ray, COVID-19 nasopharyngeal swab, and administer sp3 Solu-Medrol 125 mg intramuscular. At this time I believe her symptoms are related to a flareup of her existing rheumatoid arthritis. I have a low index of suspicion for acute coronary syndrome, pulmonary molybdenum, sepsis, shock, or any other acute emergency at this time. Will discharge patient home on prednisone p.o. x3 days with follow-up with her PCP.. Administered Medications: 12:40 Drug: SOLU-Medrol (methylPREDNISolone sodium succinate) 125 mg Route: IM; Site: right ss gluteus; 14:05 Follow up: Response: No adverse reaction ss Disposition Summary: 04/12/21 14:05 Eloped Disposition: after being seen by provider ss Reason: wait time ss Condition: Stable ss Signatures: Dispatcher [employer] Ilene Barrett RN RN Ngozi Huitron sp3
[2021-04-12 14:16] VITALS: BP 145/77; TEMP 97.9; O2SAT 97
== END 2021-04-12 14:06 | disposition left against medical advice (07) ==
LOC: ER 09:18
DX: R60.9 Edema, unspecified (principal); M19.90 Unspecified osteoarthritis, unspecified site; I10 Essential (primary) hypertension; F17.210 Nicotine dependence, cigarettes, uncomplicated; Z20.822 Contact with and (suspected) exposure to COVID-19; Z88.2 Allergy status to sulfonamides
CPT/HCPCS: U0003; J2930; 96372; 99282

== ENCOUNTER 2021-08-14 10:19 | Emergency (ER) | payer OTHER ==
--- OUTSIDE RECORDS SUMMARY | 2021-08-14 10:26 | XMS REPORT | Continuity of Care Document ---
:1965 Author Organization [facility] t Address [address] [place] [address] Care Team Providers Name Role Phone Gaurav Hinojosa MD Primary Care Physician BENITO Attending Clinician Unavailable Kiley KINNEY Attending Clinician Unavailable Amanda BOCANEGRA, Chintan Attending Clinician Unavailable Only, Db Test Attending Clinician Unavailable Tobi GUTIERREZ Attending Clinician TOBI Attending Clinician Unavailable Doctor Unassigned, Name Attending Clinician Unavailable Carlos Alberto Attending Clinician Unavailable Henrry Antunez Attending Clinician Unavailable Singer SHANKAR Attending Clinician Brandon Ascencio Attending Clinician Brandon KENDRICK Attending Clinician Unavailable Marce CAUSEY Attending Clinician Unavailable Henrry Anutnez Admitting Clinician Unavailable Daniela Escalante Admitting Clinician Unavailable Payers Payer Name Policy Type Policy Number Effective Date Expiration Date S chantelle MEDICARE PART A [id number] 2020 \\T\\ B 00:00:00 MEDICAID SSI PENDING PENDING Problems Condition Condition Condition Status Onset Resolution Last Treating Co mments Source Name Details Category Date Date Treatment Clinician Date Chest pain Chest pain Disease Active U nivers of of 6-18 [place]y of [place] 00 Med[place] DX: RENAL Diagnosis Active 2014-05-27 Mem[facility] ANGIOGRAM 05-06 13:44:00 l DX: 00:00: [place] RENAL 00 ANGIOGRAM Active 05/06/2014 [facility] BOWEL Diagnosis Active 2014-01-07 Mem oria OBSTRUCTIO 12-30 21:50:00 l N BOWEL 00:00: [place] OBSTRUCTIO 00 N Active 12/30/2013 [facility] 795.79 Diagnosis Active 2015-01-05 Mem oria V82.2 - 10:04:00 l 724.2 795.79 00:00: [place] 719.43 V82.2 00 726.31 724.2 719.43 726.31 Active 08/28/2000 [facility] No known No known Disease Unive rs active active ity of problems problems [facility] Branch Hyperchole Problem Active 2015-02-07 M emoria sterolemia 00:48:36 l (disorder) Moncho n Hyperchole sterolemia (disorder) Active Problem 02/07/2015 [facility] Hypertensi Problem Active 2015-02-07 M emoria ve 00:48:36 l disorder, [place] systemic Hypertensi arterial ve (disorder) disorder, systemic arterial (disorder) Active Problem 02/07/2015 [facility] Sleep Problem Active 2015-02-07 Memor ia apnea 00:48:36 l (finding) Sleep Moncho n apnea (finding) Active Problem 02/07/2015 [facility] INTESTINAL Diagnosis Active 2014-01-07 Memoria OBSTRUCT 21:50:00 l NOS [place] INTESTINAL OBSTRUCT NOS Active [place] Crohn's Problem Resolve 2015-02-07 Mem oria disease d 00:48:36 l (disorder) Crohn's Her giles disease (disorder) Resolved Problem 02/07/2015 [facility] All[facility]ies, Adverse Reactions, Alerts Allergy Allergy Status Severity Reaction(s) Onset Inactive Treating Comm ents Source Name Type Date Date Clinician Sulfa DA Active [facility] (Sulfona 7-01 Clear mide 00:00: [facility] S[facility] DA Active [facility] (Sulfona 7-01 Clear mide 00:00: [place] [facility]iot [facility] Sulfa Propensi Active [facility] (Sulfona ty to 4-15 Health mide adverse 00:00: Antibiot reaction 00 ics) s to drug Tramadol Propensi Active Other - See contradi c Univers ty to comments 3-28 tion with ity o f adverse 00:00: anti-depr [place] reaction 00 ession Medical s medicatio Branch n TRAMADOL DRUG Active Other-Cmnt Univ ers INGREDI 3-28 ity of 00:00: [place] 00 Medical Branch Sulfa Propensi Active Swelling Throat Univer s (Sulfona ty to 3-22 swelling ity of mide adverse 00:00: [place] Antibiot reaction 00 Medica l ics) s Branch SULFA Drug Active Swelling Univers (SULFONA Class 3-22 ity of MIDE 00:00: [place] ANTIBIOT 00 Medical ICS) Branch Sulfa Propensi Active [facility] (Sulfona ty to 6-18 st mide adverse 00:00: Hospita Antibiot reaction 00 l ics) s to drug sulfa sulfa Active Memoria drugs drugs l [place] Social History Social Habit Start Date Stop Date Quantity Comments Source Exposure to Not sure [facility] SARS-CoV-2 [facility] (event) Branch Alcohol intake 2018-04-13 2018-04-13 Current [facility] 00:00:00 00:00:00 non-drinker of alcohol (finding) Tobacco use and 2018-02-12 2018-02-12 Smokeless tobacco [facility] [place] exposure 00:00:00 00:00:00 non-user Social History 2013-12-30 2013-12-30 [facility] belen 13:29:20 13:29:20 Sex [birth year] Universit y of 00:00:00 00:00:00 [facility] Smoking Status Start Date Stop Date Source Unknown [facility] Smokes tobacco daily 2018-02-12 00:00:00 [facility] Medications Ordered Filled Start Stop Current Ordering Indication Dosage Frequency Signature Comments Components Source Medication Medication Date Date Medication? Clinician (SIG) Name Name oxybutynin 2019-08 Yes 10mg Take 1 Univers 10 mg 24 hr 1-05 tablet by ity of tablet 00:00: mouth [place] 00 daily. Medical Branch methylPREDN 2019-08 Yes Take by Univers ISolone 1-05 mouth ity of (MEDROL, 00:00: SEE-INSTRU [place] as JENNY,) 4 mg 00 CTIONS. Medica l tablets follow Branch package directions naproxen 2019-08 Yes 550mg Take 1 U nivers sodium 1-05 tablet by ity of (ANAPROX 00:00: mouth 2 [place] DS) 550 mg 00 (two) Medical tablet times Branch daily with meals. oxybutynin 2019-08 Yes 10mg Take 1 Univers 10 mg 24 hr 1-05 tablet by ity of tablet 00:00: mouth [place] 00 daily. Medical Branch methylPREDN 2019-08 Yes Take by Univers ISolone 1-05 mouth ity of (MEDROL, 00:00: SEE-INSTRU [place] as JENNY,) 4 mg 00 CTIONS. Medica l tablets follow Branch package directions naproxen 2019-08 Yes 550mg Take 1 U nivers sodium 1-05 tablet by ity of (ANAPROX 00:00: mouth 2 [place] DS) 550 mg 00 (two) Medical tablet times Branch daily with meals. oxybutynin 2019-08 Yes 10mg Take 1 Univers 10 mg 24 hr 1-05 tablet by ity of tablet 00:00: mouth [place] 00 daily. Medical Branch methylPREDN 2019-08 Yes Take by Univers ISolone 1-05 mouth ity of (MEDROL, 00:00: SEE-INSTRU [place] as JENNY,) 4 mg 00 CTIONS. Medica l tablets follow Branch package directions naproxen 2019-08 Yes 550mg Take 1 U nivers sodium 1-05 tablet by ity of (ANAPROX 00:00: mouth 2 [place] DS) 550 mg 00 (two) Medical tablet times Branch daily with meals. oxybutynin 2019-08 Yes 10mg Take 1 Univers 10 mg 24 hr 1-05 tablet by ity of tablet 00:00: mouth [place] 00 daily. Medical Branch methylPREDN 2019-08 Yes Take by Univers ISolone 1-05 mouth ity of (MEDROL, 00:00: SEE-INSTRU [place] as JENNY,) 4 mg 00 CTIONS. Medica l tablets follow Branch package directions naproxen 2019-08 Yes 550mg Take 1 U nivers sodium 1-05 tablet by ity of (ANAPROX 00:00: mouth 2 [place] DS) 550 mg 00 (two) Medical tablet times Branch daily with meals. oxybutynin 2019-08 Yes 10mg Take 1 Univers 10 mg 24 hr 1-05 tablet by ity of tablet 00:00: mouth [place] 00 daily. Medical Branch methylPREDN 2019-08 Yes Take by Univers ISolone 1-05 mouth ity of (MEDROL, 00:00: SEE-INSTRU [place] as JENNY,) 4 mg 00 CTIONS. Medica l tablets follow Branch package directions naproxen 2019-08 Yes 550mg Take 1 U nivers sodium 1-05 tablet by ity of (ANAPROX 00:00: mouth 2 [place] DS) 550 mg 00 (two) Medical tablet times Branch daily with meals. oxybutynin 2019-08 Yes [id number] 10mg Take 1 Univers 10 mg 24 hr 1-05 tablet by ity of tablet 00:00: mouth [place] 00 daily. Medical Branch methylPREDN 2019-08 Yes Take by Univers ISolone 1-05 mouth ity of (MEDROL, 00:00: SEE-INSTRU [place] as JENNY,) 4 mg 00 CTIONS. Medica l tablets follow Branch package directions naproxen 2019-08 Yes 550mg Take 1 U nivers sodium 1-05 tablet by ity of (ANAPROX 00:00: mouth 2 [place] DS) 550 mg 00 (two) Medical tablet times Branch daily with meals. acetaminoph 0 Yes [id number] 1{tbl} Take 1 Un alexi en-codeine 7-21 tablet by ity of (TYLENOL-CO 00:00: mouth [place] DEINE #3) 00 every 4 Medical 300-30 mg (four) Branch tablet hours as needed for Pain (scale 7-10). Indication s: acute pain acetaminoph 2020-0 Yes [id number] 1{tbl} Take 1 Un alexi en-codeine 7-21 tablet by ity of (TYLENOL-CO 00:00: mouth [place] DEINE #3) 00 every 4 Medical 300-30 mg (four) Branch tablet hours as needed for Pain (scale 7-10). Indication s: acute pain acetaminoph 2020-0 Yes 4647 1{tbl} Take 1 Un alexi en-codeine 7-21 tablet by ity of (TYLENOL-CO 00:00: mouth [place] DEINE #3) 00 every 4 Medical 300-30 mg (four) Branch tablet hours as needed for Pain (scale 7-10). Indication s: acute pain acetaminoph 2020-0 Yes 4647 1{tbl} Take 1 Un alexi en-codeine 7-21 tablet by ity of (TYLENOL-CO 00:00: mouth [place] DEINE #3) 00 every 4 Medical 300-30 mg (four) Branch tablet hours as needed for Pain (scale 7-10). Indication s: acute pain acetaminoph 2020-0 Yes 4647 1{tbl} Take 1 Un alexi en-codeine 7-21 tablet by ity of (TYLENOL-CO 00:00: mouth [place] DEINE #3) 00 every 4 Medical 300-30 mg (four) Branch tablet hours as needed for Pain (scale 7-10). Indication s: acute pain acetaminoph 2020-0 Yes 4647 1{tbl} Take 1 Un alexi en-codeine 7-21 tablet by ity of (TYLENOL-CO 00:00: mouth [place] DEINE #3) 00 every 4 Medical 300-30 mg (four) Branch tablet hours as needed for Pain (scale 7-10). Indication s: acute pain cyclobenzap 2018-08 Yes [id number] 5mg Take 1 U nivers rine 5 mg 0-13 tablet by ity o f tablet 00:00: mouth 3 [place] 00 (three) Medical times Branch daily. cyclobenzap 2018-08 Yes [id number] 5mg Take 1 U nivers rine 5 mg 0-13 tablet by ity o f tablet 00:00: mouth 3 [place] 00 (three) Medical times Branch daily. cyclobenzap 2018-08 Yes [id number] 5mg Take 1 U nivers rine 5 mg 0-13 tablet by ity o f tablet 00:00: mouth 3 (three) Medical times Branch daily. cyclobenzap 2018-08 Yes [id number] 5mg Take 1 U nivers rine 5 mg 0-13 tablet by ity o f tablet 00:00: mouth 3 (three) Medical times Branch daily. cyclobenzap 2018-08 Yes [id number] 5mg Take 1 U nivers rine 5 mg 0-13 tablet by ity o f tablet 00:00: mouth 3 (three) Medical times Branch daily. cyclobenzap 2018-08 Yes [id number] 5mg Take 1 U nivers rine 5 mg 0-13 tablet by ity o f tablet 00:00: mouth 3 (three) Medical times Branch daily. gabapentin Yes Chronic 300mg Take 1 H [...] sciatica needed for laterality Muscle unspecified Spasms. gabapentin Yes Chronic 300mg Take 1 H [...] laterality Muscle unspecified Spasms. metoprolol Yes 25mg Q.[id number] Take 25 mg [facility] tartrate 6-[id number] (LOPRESSOR) 18:26: 3D (three) Hos viral 25 mg 50 times a l tablet day. Note: Rx label states BID but pt takes TID. cyanocobala Yes 1{tbl} QD Take 1 Me thodi min, 6-[address] vitamin 18:26: mouth Hospita B-12, 50 daily. l (VITAMIN B-12 ORAL) naproxen Yes 440mg Q24H Take 440 Meth floyd sodium 6-[address] (ALEVE) 220 18:26: mouth Hospi ta MG tablet 50 daily as l needed for mild pain. citalopram Yes 40mg QD Take 40 mg M ethodi (CeleXA) 40 6-[address] MG tablet 18:26: nightly. Hosp tasha 50 l Ativan No Notes: Memoria 05-20 (Same as: l 14:26: Ativan) Ativan No Notes: Memoria 05-20 (Same as: l 14:26: Ativan) Acetaminoph No Notes: Do M emoria en 05-20 not exceed l 13:34: 4 gm/day. (Same as: Tylenol) Acetaminoph No Notes: Do M emoria en 05-20 not exceed l 13:34: 4 gm/day. [place] 00 (Same as: Tylenol) rOPINIRole Yes 1 mg = 1 Mem oria 1 mg oral 9-23 tab, PO, l tablet 12:18: Daily, 0 [place] Refill(s) Klor-Con 10 Yes 10 mEq, Mem oria 9-23 PO, Daily, l 12:18: 0 [place] Refill(s) rOPINIRole Yes 1 mg = 1 Mem oria 1 mg oral 9-23 tab, PO, l tablet 12:18: Daily, 0 [place] 00 Refill(s) Klor-Con 10 Yes 10 mEq, Mem oria 9-23 PO, Daily, l 12:18: 0 [place] 00 Refill(s) Hydrochloro Yes 1 tab, PO, Memoria thiazide 9-23 Daily, # l 12.5 MG / 03:00: 30 tab, 0 Her giles Losartan 00 Refill(s) Potassium 50 MG Oral Tablet Hydrochloro Yes 1 tab, PO, Memoria thiazide 9-23 Daily, # l 12.5 MG / 03:00: 30 tab, 0 Her giles Losartan 00 Refill(s) Potassium 50 MG Oral Tablet aspirin Yes 81 mg, PO, Mau agata -22 Daily l 14:48: aspirin Yes 81 mg, PO, Mau agata -22 Daily l 14:48: aripiprazol Yes 15 mg = 1 M emoria e 15 MG 05-19 tab, PO, l Oral Tablet 14:47: Daily Alice nn [Abili] Clonidine Yes PO, Memoria 05-19 Bedtime l 14:47: aripiprazol Yes 15 mg = 1 M emoria e 15 MG 05-19 tab, PO, l Oral Tablet 14:47: Daily Alice nn [Abilif] Clonidine Yes PO, Memoria 05-19 Bedtime l 14:47: Ibuprofen Yes 800 mg, Memor ia - PO, BID l 14:46: Ibuprofen Yes 800 mg, Memor ia - PO, BID l 14:46: Miralax No Notes: Memoria 5-09 Dissolve l 14:00: in 8 oz of water or juice. (Same as: Miralax) Miralax No Notes: Memoria 5-09 Dissolve l 14:00: in 8 oz of 00 water or juice. (Same as: Miralax) Dulcolax No Notes: Memoria Laxative 5-08 (Same As: l 15:24: Dulcolax, Bisco-Lax) Dulcolax No Notes: Memoria Laxative 5-08 (Same As: l 15:24: Dulcolax, Bisco-Lax) Sertraline No Notes: Memor ia 5-07 (Same as: l 14:00: Zoloft) Methocarbam No Notes: Mau agata ol 5-07 (Same l 14:00: as:Robaxin ) aripiprazol No Notes: Mau agata e 5-07 Non-Formul l 14:00: elva Drug. (Same as: ) Entocort EC No 9 mg, Memor ia 5-07 Route: PO, l 14:00: Drug form: [place] 00 ERCAP, Daily, Dosing Weight 71.818, kg, Start date: 01/01/14 9:00:00, Duration: 30 day, Stop date: 01/30/14 9:00:00 Budesonide No Notes: Memor ia 5-07 (Same As: l 14:00: Entocort [place] 00 EC or Budesonide 3 mg EC / ERC) "Do Not Crush" Sertraline No Notes: Memor ia 5-07 (Same as: l 14:00: Zoloft) Methocarbam No Notes: Mau agata ol 5-07 (Same l 14:00: as:Robaxin ) aripiprazol No Notes: Mau agata e 5-07 Non-Formul l 14:00: elva Drug. (Same as: Kaylee) Entocort EC No 9 mg, Memor ia 5-07 Route: PO, l 14:00: Drug form: [place] 00 ERCAP, Daily, Dosing Weight 71.818, kg, Start date: 01/01/14 9:00:00, Duration: 30 day, Stop date: 01/30/14 9:00:00 Budesonide No Notes: Memor ia 5-07 (Same As: l 14:00: Entocort [place] 00 EC or Budesonide 3 mg EC / ERC) "Do Not Crush" Protonix No Notes: Memoria 5-07 Tablet l 12:30: should not [place] 00 be chewed or crushed. (Same as: Protonix) Protonix No Notes: Memoria 5-07 Tablet l 12:30: should not [place] 00 be chewed or crushed. (Same as: Protonix) Dicyclomine No Notes: Mau agata 5-07 (Same as: l 04:30: Bentyl) Dicyclomine No Notes: Mau agata 5-07 (Same as: l 04:30: Bentyl) Trazodone No Notes: Memori a Hydrochlori 5-07 (Same As: l de 100 MG 02:00: Desyrel) Herm booker Oral Tablet 00 Zocor No Notes: Memoria 5-07 (Same as: l 02:00: Zocor) [place] Ditropan XL No Notes: Mau agata 5-07 (Same as: l 02:00: Ditropan [place] 00 XL) "Do Not Crush" Pamelor No Notes: Memoria 5-07 (Same l 02:00: as:Pamelor [place] 00 , Aventyl) metoprolol No Notes: Memor ia tartrate 5-07 (Same as: l 02:00: Lopressor) [place] Trazodone No Notes: Memori a Hydrochlori 5-07 [...] tartrate 5-07 (Same as: l 02:00: Lopressor) [place] 00 Pentasa No Notes: Memoria 5-06 (Same as: l 22:00: Pentasa) [place] 00 Do not open capsule. "Do Not Crush" Pentasa No Notes: Memoria 5-06 (Same as: l 22:00: Pentasa) [place] 00 Do not open capsule. "Do Not Crush" Ketorolac No 4 days. Mau agata Tromethamin 5-06 l e 15 MG/ML 12:43: [place] Injectable 00 Solution Ketorolac No 4 days. Mau agata Tromethamin 5-06 l e 15 MG/ML 12:43: [place] Injectable 00 Solution Nicotine No Notes: Memoria 5-05 (Same as: l 22:00: Habitrol) [place] 00 "Remove old patch before applicatio n of new patch" Nicotine No Notes: Memoria 5-05 (Same as: l 22:00: Habitrol) [place] 00 "Remove old patch before applicatio n of new patch" Protonix No Notes: For Mem oria 5-05 IV push l 21:30: reconstitu [place] 00 te with 10 ml 0.9% sodium chloride and push over 2 minutes. (Same as: Protonix) Protonix No Notes: For Mem oria 5-05 [...] 4 cap, l Extended 11:54: BID, 0 [place] Release 00 Refill(s) Capsule [Pentasa] sertraline Yes [...] cap, PO, l Oral 11:54: Bedtime, # [place] Capsule 00 90 cap, 0 [Pamelor] Refill(s) 24 HR Yes 10 mg = 1 Memoria Oxybutynin 5-05 tab, PO, l chloride 10 11:54: Bedtime, # [place] MG Extended 00 30 tab, 0 Release Refill(s) Tablet [Ditropan] Trazodone Yes 100 mg = 1 Me moria Hydrochlori 5-05 tab, PO, l de 100 MG 11:54: Bedtime, # He rmann Oral Tablet 00 90 tab, 0 Refill(s) Ranitidine Yes 300 mg = 1 M emoria 300 MG Oral 5-05 tab, PO, l Tablet 11:54: Daily, # [place] [Zantac] 00 30 tab, 0 Refill(s) Sodium Yes 0 Memoria Bicarbonate 5-05 Refill(s) l 11:54: [place] 00 methocarbam Yes 750 mg = 1 Memoria ol 750 mg 5-05 tab, PO, l oral tablet 11:54: Daily, # Nathan rmann 00 60 tab, 0 Refill(s) Omeprazole Yes 40 mg = 1 Me moria 40 MG 5-05 cap, PO, l Enteric 11:54: Daily, # Moncho n Coated 00 30 cap, 0 Capsule Refill(s) [Prilosec] 24 HR Yes 9 mg = 3 [...] l de 100 MG 11:54: Bedtime, # He rmann Oral Tablet 00 90 tab, 0 Refill(s) Ranitidine Yes 300 mg = 1 M emoria 300 MG Oral 5-05 tab, PO, l Tablet 11:54: Daily, # [place] [Zantac] 00 30 tab, 0 Refill(s) Sodium Yes 0 Memoria Bicarbonate 5-05 Refill(s) l 11:54: [place] methocarbam Yes 750 mg = 1 Memoria ol 750 mg 5-05 tab, PO, l oral tablet 11:54: Daily, # Nathan rmann 00 60 tab, 0 Refill(s) Omeprazole Yes 40 mg = 1 Me moria 40 MG 5-05 cap, PO, l Enteric 11:54: Daily, # Moncho n Coated 00 30 cap, 0 Capsule Refill(s) [Prilosec] Morphine No Notes: Memoria 5-05 (Same l 09:01: as:MORPhin [place] 00 e Sulfate) Morphine No Notes: Memoria 5-05 (Same l 09:01: as:MORPhin [place] 00 e Sulfate) Zofran No Notes: Memoria 5-05 (Same as: l 09:00: Zofran) Lovenox No Notes: Memoria 5-05 (Same as: l 09:00: Lovenox) Zofran No Notes: Memoria 5-05 (Same as: l 09:00: Zofran) Lovenox No Notes: Memoria 5-05 (Same as: l 09:00: Lovenox) normal No 1,000 mL, Memori a saline 0.9% 5-05 Rate: 100 l IV 1,000 mL 08:52: ml/hr, Infuse over: 10 hr, Route: IV, Dosing Weight 71.818 kg, Total Volume: 1,000, Start date: 12/30/13 3:52:00, Duration: 30 day, Stop date: 01/29/14 3:51:00 normal No 1,000 mL, Memori a saline 0.9% 5-05 Rate: 100 l IV 1,000 mL 08:52: ml/hr, Herm booker 00 Infuse over: 10 hr, Route: IV, Dosing Weight 71.818 kg, Total Volume: 1,000, Start date: 12/30/13 3:52:00, Duration: 30 day, Stop date: 01/29/14 3:51:00 Immunizations Ordered Filled Immunization Date Status Comments Sourc e Immunization Name Name SARS-COV-2 COVID-19 2021-05-15 Completed Unive rsity of MODERNA VACCINE 00:00:00 [facility] SARS-COV-2 COVID-19 2021-04-17 Completed Unive rsity of MODERNA VACCINE 00:00:00 [facility] Tdap 2018-04-13 Completed Mandaen 00:00:00 [facility] TDAP 2018-04-13 Completed University of 00:00:00 [facility] Vital Signs Vital Name Observation Time Observation Value Comments Source Weight 2014-05-16 14:54:00 [facility] [place] BMI Calculated 2014-05-16 14:54:00 Memori al [place] Height 2014-05-16 14:54:00 160.02 cm [facility] [place] Respitory Rate 2014-01-02 20:58:00 Memori al [place] Heart Rate 2014-01-02 20:58:00 [facility] [place] Temperature Oral (F) 2014-01-02 20:58:00 98.4 F [facility] [place] Diastolic (mm Hg) 2014-01-02 20:58:00 Mem orial [place] Systolic (mm Hg) 2014-01-02 20:58:00 Mau rial [place] Temperature Oral (F) 2014-01-02 16:23:00 98.2 F [facility] [place] Heart Rate 2014-01-02 16:23:00 [facility] [place] Respitory Rate 2014-01-02 16:23:00 Memori al [place] Systolic (mm Hg) 2014-01-02 16:23:00 Mau rial [place] Diastolic (mm Hg) 2014-01-02 16:23:00 Mem orial [place] Diastolic (mm Hg) 2014-01-02 12:20:00 Mem orial [place] Systolic (mm Hg) 2014-01-02 12:20:00 Mau rial [place] Respitory Rate 2014-01-02 12:20:00 Memori al [place] Temperature Oral (F) 2014-01-02 12:20:00 98.5 F [facility] Heart Rate 2014-01-02 12:20:00 [facility] [place] Weight 2013-12-30 08:54:00 [facility] [place] Height 2013-12-30 08:54:00 162.56 cm [facility] [place] BMI Calculated 2013-12-30 08:54:00 Memori al [place] Weight 2013-12-30 08:52:00 [facility] [place] BMI Calculated 2013-12-30 08:52:00 Memori al [place] Height 2013-12-30 08:52:00 162.56 cm [facility] [place] Weight 2013-12-30 08:40:00 [facility] [place] BMI Calculated 2013-12-30 08:40:00 Memori al [place] Height 2013-12-30 08:40:00 162.56 cm [facility] Procedures Procedure Date / Time Performing Clinician Source Performed EXTERNAL MAMMOGRAM 2021-06-22 13:00:00 Doctor Unassigned, No [facility] ASSIGNMENT OF BENEFITS 2021-04-21 21:02:24 Doctor Unassigned, No [facility] Abdominal aorta [facility] angiogram Abdominal hysterectomy [facility] Angiography of renal [facility] arteries, bilateral Appendectomy [facility] angiography Suspension of bladder [facility] ermann Tonsillectomy [facility] Plan of Care Planned Activity Planned Date Details Comments Source Future Scheduled 2021-07-07 COVID-19 VACCINE (1) Met [facility] Test 05:38:10 [code = COVID-19 VACCINE (1)] Future Scheduled 2021-07-07 Screening for [facility] Test 05:38:10 malignant neoplasm of cervix (procedure) [code = 521027278] Future Scheduled 2021-07-07 COLONOSCOPY SCREENING [facility] [place] Test 05:38:10 [code = COLONOSCOPY SCREENING] Future Scheduled 2021-07-07 SHINGLES VACCINES (#1) [facility] Test 05:38:10 [code = SHINGLES VACCINES (#1)] Future Scheduled 2021-07-07 BREAST CANCER [facility] Test 05:38:10 SCREENING [code = BREAST CANCER SCREENING] Future Scheduled 2021-07-07 INFLUENZA VACCINE [facility] Test 05:38:10 [code = INFLUENZA VACCINE] Future Scheduled 2021-05-28 IMM Influenza [facility] Test 00:00:00 May to October (>/= 19 yrs) [code = IMM Influenza Seasonal May to October (>/= 19 yrs)] Future Scheduled 2021-05-28 [facility]MM [facility] Test 00:00:00 May to October (>/= 19 yrs) [code = IMM Influenza Seasonal May to October (>/= 19 yrs)] Future Scheduled 2013 [facility] 00:00:00 malignant neoplasm of colon (procedure) [code = 507054737] Future Scheduled 2013 [facility] 00:00:00 malignant neoplasm of colon (procedure) [code = 367240648] Future Scheduled 2003 [facility] Test 00:00:00 (Yearly) [code = Breast Cancer Scrn (Yearly)] Future Scheduled 2003 [facility] Test 00:00:00 (Yearly) [code = Breast Cancer Scrn (Yearly)] Future Scheduled 1993 [facility] 00:00:00 malignant neoplasm of cervix (procedure) [code = 272187175] Future Scheduled 1993 [facility] 00:00:00 malignant neoplasm of cervix (procedure) [code = 470897956] Future Scheduled 1993 [facility] 00:00:00 malignant neoplasm of cervix (procedure) [code = 832326291] Future Scheduled 1993 [facility] 00:00:00 malignant neoplasm of cervix (procedure) [code = 340014584] Future Scheduled 1975 COVID-19 Vaccine (1) [facility] 00:00:00 [code = COVID-19 Vaccine (1)] Future Scheduled 1969 Imm Pneumococcal 0-64 [facility] Test 00:00:00 (1 of 2 - PPSV23) [code = Imm Pneumococcal 0-64 (1 of 2 - PPSV23)] Future Scheduled 1968-02-27 COVID-19 Vaccine (1) [facility] Test 00:00:00 [code = COVID-19 Vaccine (1)] Encounters Start End Encounter Admission Attending Care Care Encounter Source Date/Time Date/Time Type Type Clinicians Facility Department ID 2021-08-05 2021-08-05 Outpatient R EDDIE OLIVER [facility] [id number] Univers 15:30:00 15:30:00 [id number] ity [facility] 2021-08-05 2021-08-05 Outpatient R EDDIE OLIVER [facility] [id number] Univers 15:30:00 15:30:00 ity [facility] 2021-08-02 2021-08-02 Pre Visit KileyFANTASMAMilagro [id number] Univers 00:00:00 00:00:00 Outreach Maya CORADO 350.1.13.10 i ty of [place] 4[place].2.[place] [phone] [facility] [address] 2021-04-22 2021-04-22 Letter LUCIANO Patel 1.2.840.114 [id number] Univers 00:00:00 00:00:00 (Out) Fannie BAUER 350.1.13.10 i ty of [facility] 4.2.7.2.686 [place] as [phone] [facility] [address] 2021-04-21 2021-04-21 Laboratory Only, Ang Db Test [facility] 1.2.8 40.114 [id number] Univers 16:03:49 16:18:49 Only Tobi [facility] 350.1.13.10 ity of [place] 4.2.7.2.686 [place] as Delmar?Blea [phone] [address] Medical Office Building 2021-04-21 2021-04-21 Outpatient R TOBI [facility] [id number] Univers 15:45:00 15:45:00 KILLIAN ity [facility] 2021-04-21 2021-04-21 Letter Doctor WOLF 1.2.840.114 [id number] Univers 00:00:00 00:00:00 (Out) UnassignedJUANCARLOS 350.1.13.10 ity of Center [facility] 4.2.7.2.686 [place] as [phone] [address] 2021-04-21 2021-04-21 Letter Doctor LUCIANO 1.2.840.114 [id number] Univers 00:00:00 00:00:00 (Out) Unassigned, JUANCARLOS 350.1.13.10 ity of Center [facility] 4.2.7.2.686 [place] as [phone] [facility] [address] 2021-04-21 2021-04-21 Orders Doctor LUCIANO 1.2.840.114 [id number] Univers 00:00:00 00:00:00 Only Unassigned, JUANCARLOS 350.1.13.10 ity of Center [facility] 4.2.7.2.686 [place] as [phone] [facility] [address] 2021-04-19 2021-04-19 Outpatient R [facility] [id number] -[id number] Univers 15:45:00 15:45:[id number] [facility] 2021 2021-02-27 Inpatient EM Carlos Alberto [facility] MEDI.01 [id number]- 20 [facility] 15:47:00 11:36:00 Shadi [id number] [facility] 2021-02-25 2021-02-25 Outpatient Tulio BRENDA LABO [id number] [facility] 18:45:00 18:45:00 Jaiden [id number] [facility] 2021-02-25 2021-02-25 Inpatient EM Tulio BRENDA MEDI.01 [id number] -20 [facility] 13:02:00 13:01:00 Jaiden [id number] [facility] 2020-12-28 2020-12-28 Outpatient MHIE IE [id number] Memoria 15:45:00 15:45:00 00 l Nghia 2020-07-02 2020-07-02 Emergency [facility] 1.2.791.178 [id number] 14:38:00 16:16:00 Elier Chris 350.1.13.10 [place] 4.2.7.2.686 [facility] [id number] [id number] 2020-07-02 2020-07-02 Emergency X [facility] ERT [id number] Univers 14:28:00 14:28:00 [facility] 2020-04-29 2020-04-29 Emergency [facility] 1.2.797.436 [id number] 12:18:00 15:08:00 Eddie Chris 350.1.13.10 [place] 4.2.7.2.686 [facility] [id number] [id number] 2020-04-29 2020-04-29 [facility] [id number] Univers 12:07:00 12:07:00 EDDIE morris [facility] 2020-03-17 2020-03-17 Emergency [facility] 1.2.860.385 [id number] 11:37:56 13:51:00 Elier Chris 350.1.13.10 [place] 4.2.7.2.686 [facility] [id number] [id number] 2020-03-17 2020-03-17 Emergency X [facility] ERT [id number] Univers 11:26:00 11:26:00 [facility] 2020-03-17 2020-03-17 Orders Doctor WOLF 1.2.840.114 [id number] 00:00:00 00:00:00 Only Unassigned, JUANCARLOS 350.1.13.10 Center [place] [address].2.7.2.686 [id number] 2019-05-29 2019-05-29 Emergency [facility] [id number] Univers 06:47:32 09:46:00 MATEUS morris [facility] 2018-12-10 2018-12-10 Outpatient [facility] [id number] Magdiel 16:03:58 16:03:58 Health 2018-12-10 2018-12-10 Emergency [facility] [id number] Magdiel 11:20:39 11:20:39 Health 2017-09-01 2017-09-01 Emergency [facility] [id number] Veloz 10:29:00 10:29:00 Health 2015-02-04 2015-02-05 Outpt Diag nullFlavo [facility] [id number] Memoria 13:00:00 04:59:00 Services r Outpatient 00 l Govind Morin 2015-01-05 2015-01-06 Outpatient [facility] [id number] Memoria 15:04:00 04:59:00 r [place]gh[place] 31 l [facility] 2014-05-20 2014-05-20 Bedded [facility] [id number] [facility] 11:14:00 19:30:00 Outpatient [facility] 00 l [facility] 2013-12-30 2014-01-03 Inpatient [facility] [id number] [facility] 07:50:00 03:00:00 [facility] 25 l [facility] Results Test Description Test Time Test Comments [...] ALKP) 88 Unit/L 45-117 N GLUCOSE BEDSIDE [id number] 19:48:00 Test Item Value Reference Range Interpretation Comments GLUCOSE BEDSIDE TESTING (test code = 98 mg/dL 70-110 N GLUBED) - XR SMALL [id number] 19:38:00 [facility] 1965 Sex: F Name: RO MAYNARD [facility] : 1965Age/S: 56 / F [id number] Unit #: [id number] Loc: [place] [address] Phys: Dawson Ramírez MD Acct: [id number] Dis Date: Status: ADM IN PHONE#: [phone] Exam Date: 2021 1900 FAX #: Reason: evaluate for Crohn's EXAMS: CPT: [id number] XR SMALL BOWEL 95307 Fluoro Time:0 DAP (Gy m2): Air Kerma (mGy): Location of dictation: H 14 Small bowel follow-through: HISTORY: Right upper quadrant pain, evaluate for Crohn's disease. COMMENT: The city collector radiograph shows normal bowel gas pattern. No [...] PAGE 1 Signed Report Name: RO MAYNARD [facility] : 1965 Age/S: 56 / F [address] Unit #: [id number] Loc: [place] [address] Phys: Dawson Ramírez MD Acct: [id number] Dis Date: Status: ADM INPHONE #: [phone] Exam Date: 2021 1900 FAX #: Reason: evaluate for Crohn's EXAMS: CPT: [id number] XR SMALL BOWEL 33401 FluoroTime: 0 DAP (Gy m2): Air Kerma (mGy): <Continued> Technologist: Zainab Moran, RT(R)(CT)(MRI) Trnscb Date/Time: 2021 (1937) Edinson.PXC Orig Print D/T: S: 2021 (1941) PAGE 2 Signed ReportGLUCOSE BEDSIDE [id number] 17:05:00 Test Item Value Reference Range Interpretation Comments GLUCOSE BEDSIDE TESTING (test code 148 mg/dL 70-110 H = GLUBED) - HEPA IMAG INCL GB W [id number] 16:10:00 [facility] 1965 Sex: F FAX: Jaiden Huff MD [phone] Camps: PM St: ADM FAX: Tisha Scott MD [phone] FAX: Dawson Hodge MD [phone] Name: RO MAYNARD : 1965 Age/S: 56/F [address] Unit #: [id number] Loc: [address] [place] [address] Phys: Dawson Ramírez Acct: [id number] Dis Date: Status:ADM IN PHONE #: [phone] Exam Date: 2021 1553 FAX #: Reason: RUQ pain EXAMS: CPT: [id number] HEPA IMAG INCL GB W PHA 01595 EXAMINATION: Nuclear medicine hepatobiliary scan withejection fraction [...] MD Technologist: MANUEL Kevin Transcribed Date/Time/By: 2021 (1610) :[email or web address] Orig Print D/T: S: 2021 (6530) PAGE 1 Signed ReportGLUCOSE BEDSIDE [id number] 11:56:00 Test Item Value Reference Range Interpretation Comments GLUCOSE BEDSIDE TESTING (test code 131 mg/dL 70-110 H = GLUBED) CBC W/AUTO [id number] 06:20:00 Test Item Value Reference Range Interpretation [...] NT WITH AUTO DIFFERENTI AL. COMPREHENSIVE METABOLIC [id number] 04:48:00 Test Item Value Reference Range Interpretation [...] 45-117 N TOTAL (test code = ALKP) [id number] 04:48:00 Test Item Value Reference Range Interpretation Comments PHOSPHOROUS (test code = PHOS) 3.8 MG/DL 2.5-4.9 N [id number] 04:48:00 Test Item Value Reference Range Interpretation Comments MAGNESIUM (test code = MAG) 2.1 MG/DL 1.8-2.4 N COMPREHENSIVE METABOLIC [id number] 04:46:00 Test Item Value Reference Range Interpretation [...] TOTAL (test Unit/L 45-117 code = ALKP) [id number] 04:46:00 Test Item Value Reference Range Interpretation Comments PHOSPHOROUS (test code = PHOS) MG/DL 2.5-4.9 JUBBXPPDM6798-61-29 04:46:00 Test Item Value Reference Range Interpretation Comments MAGNESIUM (test code = MAG) MG/DL 1.8-2.4 BXEHWKZW-[id number] 04:46:00 Test Item Value Reference Range Interpretation [...] may dexter yby method. Completed by Nursing: MQKSCWDWG7898-99-93 04:46:00 Test Item Value Reference Range Interpretation Comments ALCOHOL (test code = ALC) < 3 MG/DL 0-10 N Completed by Nursing: NOCBC W/AUTO [id number] 04:36:00 Test Item Value Reference Range Interpretation [...] DIFF/SCN CRITERIA MDIFF) DRUGS OF ABUSE SCREEN [id number] 21:43:00 Test Item Value Reference Range Interpretation [...] mated code = AMPHETURN) SCcutoff message] T system which generated this result transmit ulysses [...] [Automate d code = OPIATURN) SCcutoff message] e system which generated this result transmit ulysses reference range : <2000 NG/ML. Th e reference range was not [...] [Automa ulysses code = METHAURN) SCcutoff message] Th e system which generated this result transmit ulysses reference range : <300 NG/ML. The reference range was not used to interpret this result as normal/abnormal . 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 R ight upper quadrant [...] Antunez MD; Kamari Escalante MD Technologist: Renee Mills, RT(R)(CT) Transcribed Date/Time/By: 02/25/2021 (1904) :Edinson.EFM1 Orig Print D/T: S: 02/25 (1907) PAGE 1 Signed Report COVID 19 INHOUSE [id number] 16:22:00 Test Item Value Reference Range Interpretation Comments COVID 19 INHOUSE AG NEGATIVE Negative Per manu facturer, (test code = negative result s should LDMRV11AQTK) be treated aspr esumptive and, if inconsi [...] symptoms co nsistent with COVID-19. CBC W/AUTO [id number] 15:38:00 Test Item Value Reference Range Interpretation [...] DIFF REQUIRED NO DIFF/SCN CRITERIA SLIDE R FENG (test code = MDIFF) CONSISTA NT WITH AUTO DIFFERENTIAL.NO PLT CLUMPS OBSERVED RBC [id number] 15:38:00 Test Item Value Reference Range Interpretation Comments PLATELET ESTIMATE (test ADEQUATE THOUSAND ADEQUATE code = PLTEST) PLATELET MORPHOLOGY (test NORMAL code = PLTMORPH) CBC W/AUTO [id number] 15:33:00 Test Item Value Reference Range Interpretation [...] code DIFF/SCN CRITERIA = MDIFF) CBC W/AUTO [id number] 15:33:00 Test Item Value Reference Range Interpretation [...] code DIFF/SCN CRITERIA = MDIFF) BASIC METABOLIC [id number] 14:26:00 Test Item Value Reference Range Interpretation [...] CA) 8.7 MG/DL 8.5-10.1 N HEPATIC FUNCTION [id number] 14:26:00 Test Item Value Reference Range Interpretation [...] 93 Unit/L 45-117 N code = ALKP) [id number] 14:26:00 Test Item Value Reference Range Interpretation Comments LIPASE (test code = LIP) 95 Unit/L 114-286 L UA RFLX MICR CULT IF [id number] 14:10:00 Test Item Value Reference Range Interpretation [...] RiskForSepsis-no oth srcUA RFLX MICR CULT IF EGICKWQVR3379-49-02 14:10:00 Test Item Value Reference Range Interpretation [...] code = UACULT) Indication for culture: RiskForSepsis-no [facility] W/AUTO [id number] 14:04:00 Test Item Value Reference Range Interpretation [...] (test code = DIFF/SCN CRITERIA MDIFF) CHEM [id number] 14:26:008[facility]ann[facility] KYMKQ5544-45-84 14:26:0091 [facility] HermannCHEM MJEVG6814-62-82 14:26:0029[facility] HermannCHEM PANEL 2014-05-19 14:26:006.7[facility] HermannCHEM EPQFC4178-06-00 14:26:0086[facility] HermannCHEM WQZJH9723-91-92 14:26:000.8[facility] HermannCHEM KEJQA7570-32-87 14:26:67272Jyypfdkr HermannCHEM KAPKY2243-15-63 14:26:003.7[facility]annCHE[facility] GJRNZ8342-82-00 14:26:63994Tlttshzb HermannCHEM CIIEU6165-50-07 14:26:009.7 [facility] TxtyuiwMKAUOKYIHL0044-54-42 14:26:14324.6[facility] HermannHEMATOLOGY 2014-05-19 14:26:00 Test Item Value Reference Range Interpretation Comments MCH (test code = MCH) 35.5 pg 27.0-31.0 Memorial RfydoxqIDCNVZRFHM2928-54-43 14:26:0013.3[facility] HermannHEMATOLOGY 2014-05-19 14:26:0037.9[facility] GnlvjalXLPCTBVXCV6875-54-49 14:26:003.73[facility] OhprnlpERKWXTPDEU0347-82-50 14:26:006.1[facility] PayxyzlZMDMIKPCDA7238-88-59 14:26:008.0[facility] IclioghRRZPNDCDVJ5891-14-04 14:26:0017.2[facility] ACKEMFYSQZ7578-63-21 14:26:69760Mecxsxwy DxozdmzWUEPZHTPHW6447-44-26 14:26:00 35.0[facility] SmgkjelHHJULNOALU8525-66-20 14:26:000.93[facility] HermannHEMATOLOGY 2014-05-19 14:26:00 Test Item Value Reference Range Interpretation Comments PT (test code = PT) 12.4 s 12.0-14.7 [facility] HermannCHEM ADDHB2672-85-38 14:26:008[facility] HermannCHEM PANEL 2014-05-19 14:26:0091[facility] HermannCHEM GLYVD9430-80-52 14:26:0029[facility] HermannCHEM NCCOE7512-11-40 14:26:006.7[facility] HermannCHEM JEKPI2148-23-73 14:26:0086[facility] HermannCHEM ECJUB5879-42-01 14:26:000.8[facility] HermannCHEM YAJZJ9634-45-12 14:26:45407Hzedzqri HermannCHEM TOIEG3873-20-33 14:26:003.7 [facility]annCHE[facility] KDUUP4878-67-37 14:26:68581Grbkpykt HermannCHEM PANEL 2014-05-19 14:26:009.7[facility] EhidrrhCVUOVUZNJI1174-49-99 14:26:89377.6[facility] QtmaipgVQMWOPRNSC4988-50-40 14:26:00 Test Item Value Reference Range Interpretation Comments MCH (test code = MCH) 35.5 pg 27.0-31.0 Memorial SofeyboQUKBPEJXQB7117-72-46 14:26:0013.3[facility] HermannHEMATOLOGY 2014-05-19 14:26:0037.9[facility] DfxstldZUSMDDGXIW5306-09-15 14:26:003.73[facility] RsolyouJOMOMWHOVO4511-21-83 14:26:006.1[facility] CuqjaxdMTYRIFCSDZ8639-00-33 14:26:008.0[facility] OfgqwskDMLXYLFCHK6977-67-63 14:26:0017.2[facility] ACZEBHTMJJ6206-51-93 14:26:43453Aikappui VcjktrpWPHNOFIJRT7825-09-31 14:26:00 35.0[facility] ZxeojsqWAOYCIWOQO6808-74-20 14:26:000.93[facility] HermannHEMATOLOGY 2014-05-19 14:26:00 Test Item Value Reference Range Interpretation Comments PT (test code = PT) 12.4 s 12.0-14.7 [facility] HermannCHEM SPZBU7926-91-97 09:42:002.0[facility] HermannCHEM PANEL 2014-01-01 09:42:17794Oqokgghc HermannCHEM EADHO4415-64-02 09:42:004[facility] HermannCHEM WUEFQ0342-55-49 09:42:003.8[facility] HermannCHEM ASZMF2587-20-11 09:42:000.5[facility]annCHEM MFYZF6291-99-00 09:42:0094[facility] HermannCHEM OZEOR6269-18-47 09:42:12682Evdlpbkt HermannCHEM HMGHM4806-07-79 09:42:008.7 [facility] HermannCHEM PUYYP8187-62-20 09:42:09611Tnznxhlz HermannCHEM PANEL 2014-01-01 09:42:0030[facility] HermannCHEM JJLHS8691-29-95 09:42:0010.8[facility] RtfhelfNPTXENSMPX5651-79-92 09:42:004.4[facility]orial BmwhowxUUJOEPJZQJ6042-37-28 09:42:003.80[facility] CvagavlBDUTFTTHFP5979-77-55 09:42:00 Test Item Value Reference Range Interpretation Comments MCH (test code = MCH) 31.1 pg 27.0-31.0 Memorial LbsoufvVNNKCFMOTQ2459-44-09 09:42:0011.8[facility] HermannHEMATOLOGY 2014-01-01 09:42:0034.5[facility] FrryuwkSFYFMNRZSA2379-05-12 09:42:0090.6[facility] PvlvgkpGQTDGUTUNB8572-36-89 09:42:0016.3[facility]orial GswplhdQEQZHJVSBG1746-38-04 09:42:0034.3[facility] FwwigkaQNWQAZZJDD7903-60-67 09:42:07434Wvlkawcy [place] UFOMMNIVZN1752-60-28 09:42:007.9[facility] XujxzqlANHZZKKOSF8667-55-56 09:42:001.6 Memorial VhkgwlyTAXOZIGXGB0218-30-72 09:42:000.2[facility] HermannHEMATOLOGY 2014-01-01 09:42:002.6[facility] QfkihtuTQYMKBQITH5938-87-40 09:42:007.4[facility] KrcqusaXTIXLJUYDU2078-03-45 09:42:001.3[facility] MbowagrXXXHPMALVF8021-78-26 09:42:000.3[facility] JdebtvuMWIYUWUUGP3558-92-26 09:42:000.1[facility] SCTCXFHMHP6823-87-78 09:42:000.0[facility] MzmjwsqTPSZSIITAN1918-86-76 09:42:00 30.7[facility] FotxrzgGLMIUPQCJI6291-97-52 09:42:0060.1[facility] HermannCHEM PANEL 2014-01-01 09:42:002.0[facility] HermannCHEM RDLMM7019-52-98 09:42:13069Fqdenhoq HermannCHEM QYFWH8655-24-59 09:42:004[facility] HermannCHEM NPFXN6344-56-65 09:42:003.8[facility] HermannCHEM ZKATB9968-54-45 09:42:000.5[facility] HermannCHEM HWPTF1532-47-24 09:42:0094[facility] HermannCHEM KITUT6654-78-83 09:42:41208 [facility] HermannCHEM RZOIU2949-48-76 09:42:008.7[facility] HermannCHEM PANEL 2014-01-01 09:42:45524Rspcpprl HermannCHEM NXHEM2308-81-30 09:42:0030[facility] HermannCHEM ZFDDH0796-99-67 09:42:0010.8[facility] YxmlkyzVELQQIXDQO0742-13-93 09:42:004.4[facility] JfbhfsmBSBQZZETBO4308-36-41 09:42:003.80[facility] [place] FLJJQGJFNM8069-45-94 09:42:00 Test Item Value Reference Range Interpretation Comments MCH (test code = MCH) 31.1 pg 27.0-31.0 Memorial SknhuatYPTOGSMVQT4575-07-59 09:42:0011.8[facility] HermannHEMATOLOGY 2014-01-01 09:42:0034.5[facility] CxqzirlTOCPREVZXD2956-14-12 09:42:0090.6[facility] SqmqvfgDRABRSEUXN2208-38-86 09:42:0016.3[facility] PhvninwRVHHXUOGTN2100-46-10 09:42:0034.3[facility] VhkkjwuFICETDXGJP8041-25-71 09:42:99548Dsarxkyv [place] FMUUMWODRM4620-32-17 09:42:007.9[facility] EgexlrqPNTSMRSMIQ6304-09-41 09:42:001.6 Memorial JxqdrcfKSRYLJYAZM4584-13-90 09:42:000.2[facility] HermannHEMATOLOGY 2014-01-01 09:42:002.6[facility] FzwpsqwJSTQJGGJMJ4000-58-03 09:42:007.4[facility] JhnkloyOQNJEAXZCP0210-89-60 09:42:001.3[facility] VgvycmaDWLUAXVITO1550-60-90 09:42:000.3[facility] SxeskabOVWQXOSWVQ8363-21-16 09:42:000.1[facility] [place] JIXYZUSCWT4107-12-89 09:42:000.0[facility] EczutytXNTKUGZDZB2846-34-41 09:42:00 30.7[facility] EpgzaqiMVWNJECYNP3679-10-43 09:42:0060.1[facility] HermannCHEM PANEL 2013-12-30 12:13:0010[facility] HermannCHEM VPOFY7656-03-97 12:13:006.9[facility] HermannCHEM ISQEW3967-94-73 12:13:93154Kewhwgyn HermannCHEM CTTKW2693-25-23 12:13:0084[facility] HermannCHEM TYNCY4248-41-49 12:13:003.9[facility] HermannCHEM ANSNB5804-47-20 12:13:52921Cuqugjjs HermannCHEM RYEEL5072-46-09 12:13:000.7 [facility] HermannCHEM RRGHI7394-63-08 12:13:007[facility] HermannCHEM PANEL 2013-12-30 12:13:000.3[facility] HermannCHEM HUIUC7569-95-76 12:13:0071[facility] HermannCHEM AETTI1706-30-69 12:13:0021[facility] HermannCHEM NGUSV7796-50-74 12:13:0020[facility] HermannCHEM AUUZD6821-02-19 12:13:006.1[facility] HermannCHEM EELCR1103-55-45 12:13:0033[facility] HermannCHEM YJFIJ2243-86-71 12:13:003.3 [facility] HermannCHEM QURKH8803-31-13 12:13:008.4[facility] HermannCHEM PANEL 2013-12-30 12:13:41062Olssdskl XxlxyzzNLKXLQLQEC1607-89-14 12:13:000.0[facility] JstqfwtBTCXCYIXKV4136-89-47 12:13:0063.5[facility] BreumkmUIJDNXUJLE2195-02-90 12:13:000.3[facility] FyimolzWWDPDLZTHY6829-48-23 12:13:000.2[facility] [place] NDMXHNDPPR1934-36-80 12:13:001.5[facility] ZkgbutfMQTZLFJMOI6399-05-93 12:13:003.3 Memorial ZgmknqjBGRVPXUBUV1146-89-01 12:13:000.1[facility] HermannHEMATOLOGY 2013-12-30 12:13:0028.9[facility] MrqqsksOEWIWBJWVO7248-88-34 12:13:006.2[facility] MjtvjwuOTBVCZYVPT9508-17-15 12:13:001.2[facility] WpcjukpCTTFAWOCTG7231-91-93 12:13:0034.3[facility] OblxdfqJOZBZSRZRK0879-05-10 12:13:0016.5[facility] [place] AJLOOUORJT2461-82-91 12:13:00 Test Item Value Reference Range Interpretation Comments MCH (test code = MCH) 31.5 pg 27.0-31.0 Memorial XheyvhjQRISRGBPBA2522-44-87 12:13:0091.9[facility] HermannHEMATOLOGY 2013-12-30 12:13:87235Mpnirarl XjfaackCCRSUVGXLL0386-26-87 12:13:007.9[facility] EaonzanODYXBSVZIN5694-88-49 12:13:003.91[facility] KupsgugLKTCWDTORJ8074-40-26 12:13:0035.9[facility] YshveimEJXDKOCILK5156-98-72 12:13:0012.3[facility] KJULTPDCCI5432-39-52 12:13:005.1[facility] HermannCHEM IXYZI8596-82-22 12:13:001.8 [facility]annCHE[facility] OSDBT8255-01-46 12:13:002.6[facility] HermannCHEM PANEL 2013-12-30 12:13:002.8[facility] HermannCHEM IOPYX9456-80-63 12:13:001.2[facility] HermannCHEM VTTEF1108-07-27 12:13:0010[facility] HermannCHEM EQYDR2842-14-50 12:13:006.9[facility] HermannCHEM XLOFD7179-69-64 12:13:52966Puvibizk HermannCHEM ISHRU8178-14-19 12:13:0084[facility] HermannCHEM UNWRO7919-68-04 12:13:003.9 [facility]annCHEM PSSXO0394-44-32 12:13:41479Boxmycqa HermannCHEM PANEL 2013-12-30 12:13:000.7[facility] HermannCHEM HMJYY5502-47-83 12:13:007[facility] HermannCHEM OBMXE3127-93-63 12:13:000.3[facility] HermannCHEM AJIEZ1648-05-29 12:13:0071[facility] HermannCHEM KDRZB2141-04-98 12:13:0021[facility] HermannCHEM GTZXD7056-70-34 12:13:0020[facility] HermannCHEM IDHEP8350-41-06 12:13:006.1 [facility]annCHEM SGOMR4051-62-13 12:13:0033[facility] HermannCHEM PANEL 2013-12-30 12:13:003.3[facility] HermannCHEM XNFXL8277-85-48 12:13:008.4[facility] HermannCHEM HAHMZ1895-58-90 12:13:01766Sgfieezr DqusdsmFBCFOLYPFK5425-72-79 12:13:000.0[facility] OmbuhckBNXBKNSEFJ8738-00-92 12:13:0063.5[facility] KFDJFAQLMY5873-77-66 12:13:000.3[facility] SwukdbaXCCXGTZEXN3130-82-93 12:13:000.2 [facility] JhbtqwaSMODZBDIRC2000-09-17 12:13:001.5[facility]annHEMATOLOGY 2013-12-30 12:13:003.3[facility] BvcfkmyTPOUHRGNGF0412-94-15 12:13:000.1[facility] ExgtcsgCDJUPRVALD4083-44-25 12:13:0028.9[facility] IufvibyBDZUUWUOUY5039-39-19 12:13:006.2[facility] JbydwxcDEWLUABKRH8635-88-43 12:13:001.2[facility] OBOVTXTUMJ3199-00-70 12:13:0034.3[facility] NmqkdigQVKQEABZHU5454-88-22 12:13:00 16.5[facility] XzilocmJJEXBZTGNK2172-29-85 12:13:00 Test Item Value Reference Range Interpretation Comments MCH (test code = MCH) 31.5 pg 27.0-31.0 [facility] AhtioibUNFHHRPJIA1961-30-41 12:13:0091.9[facility] HermannHEMATOLOGY 2013-12-30 12:13:18176Lzlydnlr JeaqeisFLXUXQVCON4815-24-12 12:13:007.9[facility] CdztmenNSOVHLHZGN7994-09-53 12:13:003.91[facility] KfberqcECVVRNVCPM7114-35-62 12:13:0035.9[facility] BxyfseoYRYWMCXWWK3315-25-74 12:13:0012.3[facility] JFGHDKIXUF4481-92-58 12:13:005.1[facility] HermannCHEM LCUPG5555-47-85 12:13:001.8 [facility]annCHEM VVNDK1121-57-61 12:13:002.6[facility] HermannCHEM PANEL 2013-12-30 12:13:002.8[facility] HermannCHEM PFERE1011-99-26 12:13:001.2[facility]
[2021-08-14] MEDS ORDERED: KETOROLAC 30 MG/ML INJ ONE (10:41)
[2021-08-14] MEDS ORDERED: NA CHLORIDE 0.9% 1,000 ML ONE (10:41)
[2021-08-14] MEDS ORDERED: ONDANSETRON 4 MG/2 ML VIAL ONE (10:41)
[2021-08-14 10:51] LABS: Absolute Lymphocytes (CBC) 2.7 K/uL (0.7-4.9); Basophils % 0.4 % (0-1.3); Hematocrit 40.2 % (36.0-45.0); MPV 7.9 fL (7.6-11.3); RBC Red Blood Cell Count 4.39 M/uL (3.86-4.86)
[2021-08-14 11:03] LABS: BUN Blood Urea Nitrogen 5 mg/dL (7-18); Bicarbonate 27 mmol/L (21-32); Glucose Level 90 mg/dL (74-106); Potassium 3.7 mmol/L (3.5-5.1); Sodium Level 140 mmol/L (136-145)
--- NOTE | 2021-08-14 11:40 | RAD REPORT ---
EXAM DESCRIPTION: CTAbdomen Pelvis W Contrast - 08/14/2021 11:22 am CLINICAL HISTORY: Abdominal pain. ABD PAIN COMPARISON: <Comparisons> TECHNIQUE: Biphasic CT imaging of the abdomen and pelvis was performed with 100 ml non-ionic IV cont rast. All CT scans are performed using dose optimization technique as appropriate and may include automated exposure control or mA/KV adjustment according to patient size. FINDINGS: The lung bases are clear. The liver, spleen, pancreas, adrenal glands and kidneys are within normal limits. No bowel obstruction, free air, free fluid or abscess. Small fat containing umbilical hernia. Appende ctomy. Moderate aortoiliac atherosclerosis. No evidence of significant lymphadenopathy. Mild lumbar degenerative changes with vertebroplasty cement present. IMPRESSION: No acute intra-abdominal or pelvic finding.
[2021-08-14] MEDS ORDERED: ACETAMINOPHEN 500 MG TAB ONE (12:37)
[2021-08-14 12:49] LABS: SARS-COV-2 RT PCR NEGATIVE (NEGATIVE)
--- NOTE | 2021-08-14 12:58 | ER ---
Nurse's Notes [facility] Name: Tita Elizabeth Age: 56 yrs Sex: Female : 1965 Arrival Date: 08/14/2021 Time: 10:22 Bed 6 Private MD: Diagnosis: Acute upper respiratory infection, unspecified;Nausea with vomiting, unspecified Presentation: 08/14 10:29 Chief complaint: Patient states: cough, body aches, fever and N/V that began 4 days ss ago. Coronavirus screen: Client denies travel out of the [place] in the last 14 days. Ebola Screen: Patient denies exposure to infectious person. Patient denies travel to an Ebola-affected area in the 21 days before illness onset. Initial Sepsis Screen: Does the patient meet any 2 criteria? No. Patient's initial sepsis screen is negative. Does the patient have a suspected source of infection? No. Patient's initial sepsis screen is negative. Risk Assessment: Do you want to hurt yourself or someone else? Patient reports no desire to harm self or others. Onset of symptoms was August 10, 2021. 10:29 Method Of Arrival: Ambulatory ss 10:29 Acuity: JAY 3 ss 10:31 Note Negative COVID and flu test 3 days ago. ss Historical: - Allergies: 10:30 Sulfa (Sulfonamide Antibiotics); ss - PMHx: 10:30 Arthritis; chron's; Hypertension; immune disorder; lyme disease; ss - PSHx: 10:30 Appendectomy; bladder sling; hysterectomy; Tonsillectomy; ss - Immunization history:: Client reports receiving the 2nd dose of the Covid vaccine. - Social history:: Smoking status: Patient reports the use of cigarette tobacco products, smokes one pack cigarettes per day. Screenin:31 Abuse screen: Denies threats or abuse. Denies injuries from another. Nutritional jl7 screening: No deficits noted. Tuberculosis screening: No symptoms or risk factors identified. Fall Risk IV access (20 points). Total Pizarro Fall Scale indicates No Risk (0-24 pts). Assessment: 11:32 Reassessment: Patient appears in no apparent distress at this time. Pt is back from CT. ss Awaiting results at this time. Patient states feeling better. 12:41 Reassessment: Patient appears in no apparent distress at this time. Patient and/or jl7 family updated on plan of care and expected duration. Pain level reassessed. Patient is alert, oriented x 3, equal unlabored respirations, skin warm/dry/pink. Pain: Complains of pain in [place] Pain currently is 7 out of 10 on a pain scale. GI: Abdomen is non-distended. Vital Signs: 10:30 BP 147 / 81; Pulse 74; Resp 16; Temp 97.6(TE); Pulse Ox 100% on R/A; Weight 63.5 kg; ss Height 5 ft. 1 in. (154.94 cm); Pain 7/10; 12:41 BP 146 / 94; Pulse 69; Resp 15; Pulse Ox 94% ; Pain 7/10; jl7 10:30 Body Mass Index 26.45 (63.50 kg, 154.94 cm) ss ED Course: 10:22 Patient arrived in ED. ds1 10:30 Triage completed. ss 10:30 Arm band placed on right wrist. ss 10:32 Renetta Orantes FNP-C is PHCP. kb 10:32 Nicolas Tobar MD is Attending Physician. kb 10:40 Inserted saline lock: 20 gauge in left antecubital area, using aseptic technique. Blood ss collected. 10:45 Initial lab(s) drawn, by ED staff, sent to lab. COVID swab sent to lab. jl7 11:22 CT Abd/Pelvis - IV Contrast Only In Process Unspecified. EDMS 12:30 Aron Carlson, DALJIT is Primary Nurse. jl7 12:31 Patient has correct armband on for positive identification. Bed in low position. Call jl7 light in reach. Side rails up X 1. 12:41 Pulse ox on. NIBP on. jl7 13:26 No provider procedures requiring assistance completed. IV discontinued, intact, jl7 bleeding controlled, No redness/swelling at site. Pressure dressing applied. Administered Medications: 10:45 Drug: Zofran (Ondansetron) 4 mg Route: IVP; Site: left antecubital; ss 11:32 Follow up: Response: No adverse reaction; Nausea is decreased ss 10:48 Drug: Ketorolac 15 mg Route: IVP; Site: left antecubital; ss 12:41 Follow up: Response: No adverse reaction; Pain is unchanged, physician notified jl7 10:49 Drug: NS 0.9% 1000 ml Route: IV; Rate: 1000 ml; Site: left antecubital; 12:41 Drug: Tylenol 1000 mg Route: PO; jl7 Outcome: 12:57 Discharge ordered by . norm 13:26 Discharged to home ambulatory. jl7 13:26 Condition: stable 13:26 Discharge instructions given to patient, Instructed on discharge instructions, follow up and referral plans. medication usage, Demonstrated understanding of instructions, follow-up care, medications, Prescriptions given X 1. 13:26 Patient left the ED. jl7 Signatures: Dispatcher [employer] EDNM Renetta Orantes, TABLE GAMES SHIFT MANAGER-C TABLE GAMES SHIFT MANAGER-Mini Kmi ds1 Ilene Hitchcock RN RN Aron Echeverria RN RN jl7
--- NOTE | 2021-08-14 12:59 | EDPHYS ---
Physician Documentation [facility] Name: Tita Elizabeth Age: 56 yrs Sex: Female : 1965 Arrival Date: 08/14/2021 Time: 10:22 Bed 6 Private MD: ED Physician Nicolas Tobar HPI: 08/14 16:00 This 56 yrs old Female presents to ER via Ambulatory with complaints of Fever, Cough, kb Vomiting. 16:00 The patient or guardian reports cough, that is intermittent, described as mild. Onset: kb The symptoms/episode began/occurred Onset: The symptoms/episode began/occurred 4 day(s) ago. Severity of symptoms: At their worst the symptoms were mild, moderate, in the emergency department the symptoms are unchanged. Modifying factors: The symptoms are alleviated by nothing, the symptoms are aggravated by nothing. Associated signs and symptoms: Pertinent positives: fever, nausea, vomiting, Pertinent negatives: chest pain, diarrhea, ear ache, rhinorrhea, sore throat. The patient has not experienced similar symptoms in the past. The patient has not recently seen a physician. Historical: - Allergies: 10:30 Sulfa (Sulfonamide Antibiotics); ss - PMHx: 10:30 Arthritis; chron's; Hypertension; immune disorder; lyme disease; ss - PSHx: 10:30 Appendectomy; bladder sling; hysterectomy; Tonsillectomy; ss - Immunization history:: Client reports receiving the 2nd dose of the Covid vaccine. - Social history:: Smoking status: Patient reports the use of cigarette tobacco products, smokes one pack cigarettes per day. ROS: 15:59 Cardiovascular: Negative for chest pain, palpitations, and edema. kb 15:59 Constitutional: Positive for body aches, chills, fatigue, fever, malaise. 15:59 Respiratory: Positive for cough, Negative for dyspnea on exertion, hemoptysis, orthopnea, pleurisy, shortness of breath, sputum production, wheezing. 15:59 Abdomen/GI: Positive for nausea and vomiting, Negative for abdominal pain, diarrhea. 15:59 All other systems are negative. Exam: 15:59 Constitutional: This is a well developed, well nourished patient who is awake, alert, kb and in no acute distress. Head/Face: Normocephalic, atraumatic. ENT: Moist Mucous membranes Cardiovascular: Regular rate and rhythm with a normal S1 and S2. No gallops, murmurs, or rubs. No pulse deficits. Respiratory: Respirations even and unlabored. No increased work of breathing. Talking in full sentences Skin: Warm, dry with normal turgor. Normal color. MS/ Extremity: Pulses equal, no cyanosis. Neurovascular intact. Full, normal range of motion. Neuro: Awake and alert, GCS 15, oriented to person, place, time, and situation. Moves all extremities. Normal gait. Psych: Awake, alert, with orientation to person, place and time. Behavior, mood, and affect are within normal limits. 15:59 Abdomen/GI: Inspection: abdomen appears normal, Bowel sounds: normal, Palpation: soft, in all quadrants, moderate abdominal tenderness, in the left lower quadrant. Vital Signs: 10:30 BP 147 / 81; Pulse 74; Resp 16; Temp 97.6(TE); Pulse Ox 100% on R/A; Weight 63.5 kg; ss Height 5 ft. 1 in. (154.94 cm); Pain 7/10; 12:41 BP 146 / 94; Pulse 69; Resp 15; Pulse Ox 94% ; Pain 7/10; jl7 10:30 Body Mass Index 26.45 (63.50 kg, 154.94 cm) ss MDM: 10:32 Patient medically screened. kb 15:59 Data reviewed: vital signs, nurses notes. Data interpreted: Pulse oximetry: on room air kb is 94 %. Interpretation: normal. Counseling: I had a detailed discussion with the patient and/or guardian regarding: the historical points, exam findings, and any diagnostic results supporting the discharge/admit diagnosis, lab results, radiology results, the need for outpatient follow up, a family practitioner, to return to the emergency department if symptoms worsen or persist or if there are any questions or concerns that arise at home. 08/14 10:33 Order name: Basic Metabolic Panel kb 08/14 10:33 Order name: CBC with Diff; Complete Time: 11:01 kb 08/14 10:33 Order name: COVID-19/FLU A+B (Document "Date of Onset" if Symptomatic); Complete Time: kb 12:50 08/14 10:34 Order name: Basic Metabolic Panel; Complete Time: 11:05 EDMS 08/14 10:41 Order name: CT Abd/Pelvis - IV Contrast Only; Complete Time: 11:46 kb 08/14 10:33 Order name: IV Saline Lock; Complete Time: 10:48 kb 08/14 10:33 Order name: Labs collected and sent; Complete Time: 10:48 kb Administered Medications: 10:45 Drug: Zofran (Ondansetron) 4 mg Route: IVP; Site: left antecubital; ss 11:32 Follow up: Response: No adverse reaction; Nausea is decreased ss 10:48 Drug: Ketorolac 15 mg Route: IVP; Site: left antecubital; ss 12:41 Follow up: Response: No adverse reaction; Pain is unchanged, physician notified jl7 10:49 Drug: NS 0.9% 1000 ml Route: IV; Rate: 1000 ml; Site: left antecubital; ss 12:41 Drug: Tylenol 1000 mg Route: PO; jl7 Disposition: 16:47 Co-signature as Attending Physician, Nicolas Tobar MD I agree with the assessment and rn plan of care. Attestation: The patient's history, exam findings, diagnostics, and a summary of any interventions or procedures was reviewed in detail with Renetta BARR. Disposition Summary: 08/14/21 12:57 Discharge Ordered Location: Home kb Condition: Stable kb Diagnosis - Acute upper respiratory infection, unspecified kb - Nausea with vomiting, unspecified kb Followup: kb - With: Emergency Department - When: As needed - Reason: Worsening of condition Followup: kb - With: Private Physician - When: 2 - 3 days - Reason: Recheck today's complaints, Continuance of care, Re-evaluation by your physician Discharge Instructions: - Discharge Summary Sheet kb - Viral Gastroenteritis, Adult, [id number] kb - Viral Respiratory Infection, [id number] kb Forms: - Medication Reconciliation Form kb - Thank You Letter kb - Antibiotic Education kb - Prescription Opioid Use kb Prescriptions: - Zofran 4 mg Oral Tablet - take 1 tablet by ORAL route every 6 hours As needed; 20 tablet; Refills: 0, kb Product Selection Permitted Signatures: Dispatcher [employer] Renetta Kramer FNP-C FNP-Ckb Nieto, Roman, MD MD rn Smirch, Shelby, RN RN ss Leal, Jahala, RN RN jl7 Corrections: (The following items were deleted from the chart) 16:00 16:00 Onset: The symptoms/episode began/occurred kb kb
[2021-08-14 13:54] VITALS: TEMP 97.6
[2021-08-14 13:56] VITALS: BP 146/94; O2SAT 94
== END 2021-08-14 13:26 | disposition home or self-care (01) ==
LOC: ER 10:19
DX: J06.9 Acute upper respiratory infection, unspecified (principal); R11.2 Nausea with vomiting, unspecified; I10 Essential (primary) hypertension; F17.210 Nicotine dependence, cigarettes, uncomplicated; Z88.2 Allergy status to sulfonamides; Z20.822 Contact with and (suspected) exposure to COVID-19
CPT/HCPCS: 85025; 80048; 36415; 82565; 0240U; 74177; 96375; 96374; 99284; Q9967; J7030; J2405

== ENCOUNTER 2021-08-19 05:29 | Emergency (ER) | payer OTHER ==
--- OUTSIDE RECORDS SUMMARY | 2021-08-19 05:35 | XMS REPORT | Continuity of Care Document ---
:1965 Author Organization [facility] t Address [address] [place] [address] Care Team Providers Name Role Phone Gaurav [...] Unavailable Marce CAUSEY Attending Clinician Unavailable Henrry Antunez Admitting Clinician Unavailable Daniela Escalante Admitting Clinician Unavailable Payers Payer Name Policy Type Policy Number Effective Date Expiration Date S chantelle MEDICARE PART A [id number] 2020 \\T\\ B 00:00:00 MEDICAID SSI PENDING [...] Memoria ANGIOGRAM 05-06 13:44:00 l DX: 00:00: [place] RENAL 00 ANGIOGRAM Active 05/06/2014 [facility] BOWEL Diagnosis Active 2014-01-07 Mem oria OBSTRUCTIO 12-30 21:50:00 l N BOWEL 00:00: [place] OBSTRUCTIO 00 N Active 12/30/2013 [facility] 795.79 Diagnosis Active 2015-01-05 Mem oria V82.2 - 10:04:00 l 724.2 795.79 00:00: Nghia 719.43 V82.2 00 726.31 724.2 719.43 726.31 Active 08/28/2000 [facility] No known No known Disease Unive rs active active ity of problems problems [facility] Branch Hyperchole Problem Active 2015-02-07 M emoria sterolemia 00:48:36 l (disorder) Moncho n Hyperchole sterolemia (disorder) Active Problem 02/07/2015 [facility] Hypertensi Problem Active 2015-02-07 M emoria ve 00:48:36 l disorder, [place] systemic Hypertensi arterial ve (disorder) disorder, systemic arterial (disorder) Active Problem 02/07/2015 [facility] Sleep Problem Active 2015-02-07 Memor ia apnea 00:48:36 l (finding) Sleep Moncho n apnea (finding) Active Problem 02/07/2015 [facility] INTESTINAL Diagnosis Active 2014-01-07 Memoria OBSTRUCT 21:50:00 l NOS Nghia INTESTINAL OBSTRUCT NOS Active [facility] Crohn's Problem Resolve 2015-02-07 Mem oria disease d 00:48:36 l (disorder) Crohn's Her giles disease (disorder) Resolved Problem 02/07/2015 [facility] Allergies, Adverse Reactions, Alerts Allergy Allergy [...] sulfa sulfa Active Memoria drugs drugs l [place] Social History Social Habit Start Date Stop Date Quantity Comments Source Exposure to Not sure [facility] SARS-CoV-2 [facility] (event) Branch Alcohol intake 2018-04-13 2018-04-13 Current [facility] 00:00:00 00:00:00 non-drinker of alcohol (finding) Tobacco use and 2018-02-12 2018-02-12 Smokeless tobacco [facility] exposure 00:00:00 00:00:00 non-user Social History 2013-12-30 2013-12-30 [facility] belen 13:29:20 13:29:20 Sex Ass[birth year] [facility] 00:00:00 00:00:00 [facility] Smoking Status Start Date Stop Date Source Unknown [facility] Smokes tobacco daily 2018-02-12 00:00:00 [facility] Medications Ordered Filled Start Stop Current Ordering [...] Branch daily with meals. oxybutynin 2019-08 Yes [id number] 10mg Take 1 Univers 10 mg 24 [...] Indication s: acute pain cyclobenzap 2018-08 Yes [id number] 5mg Take 1 U nivers rine 5 mg 0-13 tablet by ity o f tablet 00:00: mouth 3 [place] 00 (three) Medical times Branch daily. cyclobenzap 2018-08 Yes [id number] 5mg Take 1 U nivers rine 5 mg 0-13 tablet by ity o f tablet 00:00: mouth 3 [place] 00 (three) Medical times Branch daily. cyclobenzap 2018-08 Yes [id number] 5mg Take 1 U nivers rine 5 mg 0-13 tablet by ity o f tablet 00:00: mouth 3 (three) Medical times Branch daily. cyclobenzap 2018-08 Yes [id number] 5mg Take 1 U nivers rine 5 mg 0-13 tablet by ity o f tablet 00:00: mouth 3 (three) Medical times Branch daily. cyclobenzap 2018-08 Yes [id number] 5mg Take 1 U nivers rine 5 mg 0-13 tablet by ity o f tablet 00:00: mouth 3 (three) Medical times Branch daily. cyclobenzap 2018-08 Yes [id number] 5mg Take 1 U nivers rine 5 [...] laterality Muscle unspecified Spasms. metoprolol Yes 25mg Q.[id number] Take 25 mg Methodi tartrate 6-[id number] (LOPRESSOR) 18:26: 3D [...] tab, PO, l tablet 12:18: Daily, 0 [place] Refill(s) Klor-Con 10 Yes 10 mEq, Mem oria 9-23 PO, Daily, l 12:18: 0 [place] Refill(s) rOPINIRole Yes 1 mg = 1 Mem oria 1 mg oral 9-23 tab, PO, l tablet 12:18: Daily, 0 Nghia 00 Refill(s) Klor-Con 10 Yes 10 mEq, Mem oria 9-23 PO, Daily, l 12:18: 0 [place] 00 Refill(s) Hydrochloro Yes 1 tab, PO, [...] ia 5-07 (Same As: l 14:00: Entocort [place] 00 EC or Budesonide 3 mg EC [...] 5-07 Route: PO, l 14:00: Drug form: [place]ricks 00 ERCAP, Daily, Dosing Weight 71.818, kg, Start date: 01/01/14 9:00:00, Duration: 30 day, Stop date: 01/30/14 9:00:00 Budesonide No Notes: Memor ia 5-07 (Same As: l 14:00: Entocort [place] 00 EC or Budesonide 3 mg EC / ERC) "Do Not Crush" Protonix No Notes: Memoria 5-07 Tablet l 12:30: should not Nghia 00 be chewed or crushed. (Same as: Protonix) Protonix No Notes: Memoria 5-07 Tablet l 12:30: should not [place] 00 be chewed or crushed. (Same as: Protonix) Dicyclomine No Notes: Mau agata 5-07 (Same as: l 04:30: Bentyl) Dicyclomine No Notes: Mau agata 5-07 (Same as: l 04:30: Bentyl) Trazodone No Notes: Memori a Hydrochlori 5-07 (Same As: l de 100 MG 02:00: Desyrel) Herm booker Oral Tablet 00 Zocor No Notes: Memoria 5-07 (Same as: l 02:00: Zocor) [place] Ditropan XL No Notes: Mau agata 5-07 (Same as: l 02:00: Ditropan Nghia 00 XL) "Do Not Crush" Pamelor No Notes: Memoria 5-07 (Same l 02:00: as:Pamelor [place] 00 , Aventyl) metoprolol No Notes: Memor ia tartrate 5-07 (Same as: l 02:00: Lopressor) [place] Trazodone No Notes: Memori a Hydrochlori 5-07 [...] tartrate 5-07 (Same as: l 02:00: Lopressor) [place] 00 Pentasa No Notes: Memoria 5-06 (Same as: l 22:00: Pentasa) [place] 00 Do not open capsule. "Do Not Crush" Pentasa No Notes: Memoria 5-06 (Same as: l 22:00: Pentasa) Nghia 00 Do not open capsule. "Do Not Crush" Ketorolac No 4 days. Mau agata Tromethamin 5-06 l e 15 MG/ML 12:43: Nghia Injectable 00 Solution Ketorolac No 4 days. Mau agata Tromethamin 5-06 l e 15 MG/ML 12:43: [place] Injectable 00 Solution Nicotine No Notes: Memoria 5-05 (Same as: l 22:00: Habitrol) Nghia 00 "Remove old patch before applicatio n of new patch" Nicotine No Notes: Memoria 5-05 (Same as: l 22:00: Habitrol) Nghia 00 "Remove old patch before applicatio n of new patch" Protonix No Notes: For Mem oria 5-05 IV push l 21:30: reconstitu Hendricks 00 te with 10 ml 0.9% sodium [...] 4 cap, l Extended 11:54: BID, 0 [place] Release 00 Refill(s) Capsule [Pentasa] sertraline Yes [...] cap, PO, l Oral 11:54: Bedtime, # Hendricks Capsule 00 90 cap, 0 [Pamelor] Refill(s) [...] 0 Memoria Bicarbonate 5-05 Refill(s) l 11:54: [place] 00 methocarbam Yes 750 mg = 1 [...] Notes: Memoria 5-05 (Same l 09:01: as:MORPhin [place] 00 e Sulfate) Morphine No Notes: Memoria 5-05 (Same l 09:01: as:MORPhin [place]ricks 00 e Sulfate) Zofran No Notes: Memoria [...] Completed Unive rsity of MODERNA VACCINE 00:00:00 [facility] SARS-COV-2 COVID-19 2021-04-17 Completed Unive rsity of MODERNA VACCINE 00:00:00 [facility] Tdap 2018-04-13 Completed Sabianism 00:00:00 [facility] TDAP 2018-04-13 Completed University of 00:00:00 [facility] Vital Signs Vital Name Observation Time Observation Value Comments Source Weight 2014-05-16 14:54:00 [facility] [place] BMI Calculated 2014-05-16 14:54:00 Memori al [place] Height 2014-05-16 14:54:00 160.02 cm [facility] [place] Respitory Rate 2014-01-02 20:58:00 Memori al [place] Heart Rate 2014-01-02 20:58:00 [facility] [place] Temperature Oral (F) 2014-01-02 20:58:00 98.4 F [facility] [place] Diastolic (mm Hg) 2014-01-02 20:58:00 Mem orial [place] Systolic (mm Hg) 2014-01-02 20:58:00 Mau rial [place] Temperature Oral (F) 2014-01-02 16:23:00 98.2 F [facility] [place] Heart Rate 2014-01-02 16:23:00 [facility] Respitory Rate 2014-01-02 16:23:00 Memori al [place] Systolic (mm Hg) 2014-01-02 16:23:00 Mau rial [place] Diastolic (mm Hg) 2014-01-02 16:23:00 Mem orial [place] Diastolic (mm Hg) 2014-01-02 12:20:00 Mem orial [place] Systolic (mm Hg) 2014-01-02 12:20:00 Mau rial [place] Respitory Rate 2014-01-02 12:20:00 Memori al [place] Temperature Oral (F) 2014-01-02 12:20:00 98.5 F [facility] Heart Rate 2014-01-02 12:20:00 [facility] [place] Weight 2013-12-30 08:54:00 [facility] Height 2013-12-30 08:54:00 162.56 cm [facility] Ngh[place] BMI Calculated 2013-12-30 08:54:00 Memori al [place] Weight 2013-12-30 08:52:00 [facility] [place] BMI Calculated 2013-12-30 08:52:00 Memori al [place] Height 2013-12-30 08:52:00 162.56 cm [facility] [place] Weight 2013-12-30 08:40:00 [facility] [place] BMI Calculated 2013-12-30 08:40:00 Memori al [place] Height 2013-12-30 08:40:00 162.56 cm [facility] Procedures Procedure Date / Time Performing Clinician Source Performed EXTERNAL MAMMOGRAM 2021-06-22 13:00:00 Doctor Unassigned, No [facility] ASSIGNMENT OF BENEFITS 2021-04-21 21:02:24 Doctor Unassigned, No [facility] Abdominal aorta [facility] angiogram Abdominal hysterectomy [facility] Angiography of renal [facility] arteries, bilateral [facility]end[facility] [place] mesenteric [facility] angiography Suspension of bladder [facility] ermann Tonsillectomy [facility] Bladder [facility] of Care Planned Activity Planned Date Details Comments Source Future Scheduled 2021-07-07 COVID-19 VACCINE (1) [facility] Test 05:38:10 [code = COVID-19 VACCINE (1)] Future Scheduled 2021-07-07 Screening for [facility] Test 05:38:10 malignant neoplasm of cervix (procedure) [code = 747105889] Future Scheduled 2021-07-07 COLONOSCOPY SCREENING [facility] Test 05:38:10 [code = COLONOSCOPY SCREENING] Future Scheduled 2021-07-07 SHINGLES VACCINES (#1) [facility] Test 05:38:10 [code = SHINGLES VACCINES (#1)] Future Scheduled 2021-07-07 BREAST CANCER [facility] Test 05:38:10 SCREENING [code = BREAST CANCER SCREENING] Future Scheduled 2021-07-07 INFLUENZA VACCINE Method [facility] Test 05:38:10 [code = INFLUENZA [...] malignant neoplasm of colon (procedure) [code = 579792735] Future Scheduled 2013 [facility] 00:00:00 malignant neoplasm of colon (procedure) [code = 478433386] Future Scheduled 2003 [facility] Test 00:00:00 (Yearly) [code = Breast Cancer Scrn (Yearly)] Future Scheduled 2003 [facility] Test 00:00:00 (Yearly) [code = Breast Cancer Scrn (Yearly)] Future Scheduled 1993 [facility] Test 00:00:00 malignant neoplasm of cervix (procedure) [code = 649240460] Future Scheduled 1993 [facility] Test 00:00:00 malignant neoplasm of cervix (procedure) [code = 632571017] Future Scheduled 1993 [facility] Test 00:00:00 malignant neoplasm of cervix (procedure) [code = 194493060] Future Scheduled 1993 [facility] Test 00:00:00 malignant neoplasm of cervix (procedure) [code = 605832164] Future Scheduled 1975 COVID-19 Vaccine (1) Star [...] ID 2021-08-05 2021-08-05 Outpatient R EDDIE OLIVER [facility] [id number] Univers 15:30:00 15:30:00 [id number] ity [facility] 2021-08-05 2021-08-05 Outpatient R EDDIE OLIVER [facility] [id number] Univers 15:30:00 15:30:00 ity [facility] 2021-08-02 2021-08-02 Pre Visit KileyFANTASMAMilagro 1.2.389.738 [id number] Univers 00:00:00 00:00:00 Outreach Maya CORADO 350.1.13.10 i ty of [place] [id number] [facility] [address] [place] 2021-04-22 2021-04-22 Letter LUCIANO Patel 1.2.840.114 [id number] Univers 00:00:00 00:00:00 (Out) Fannie BAUER 350.1.13.10 i ty of [facility] 4.2.7.2.686 [place] as [id number] [facility] [address] [place] 2021-04-21 2021-04-21 Laboratory Only, Ang Db Test [facility] 1.2.8 40.114 [id number] Univers 16:03:49 16:18:49 Only Tobi [facility] 350.1.13.10 ity of [place] 4.2.7.2.686 [place] Delmar?Blea [id number] [address] Medical Office Building 2021-04-21 2021-04-21 Outpatient R TOBI [facility] [id number] Univers 15:45:00 15:45:00 KILLIAN ity [facility] 2021-04-21 2021-04-21 Letter Doctor WOLF 1.2.840.114 [id number] Univers 00:00:00 00:00:00 (Out) UnassignedJUANCARLOS 350.1.13.10 ity of [place] [facility] 4.2.7.2.686 [place] as [id number] [address] 2021-04-21 2021-04-21 Letter Doctor LUCIANO 1.2.840.114 [id number] Univers 00:00:00 00:00:00 (Out) Unassigned, JUANCARLOS 350.1.13.10 ity of [place] [facility] 4.2.7.2.686 [place] [phone] [facility] 044 Branch 2021-04-21 2021-04-21 Orders Doctor LUCIANO 1.2.840.114 [id number] Univers 00:00:00 00:00:00 Only Unassigned, JUANCARLOS 350.1.13.10 ity of [place] [facility] 4.2.7.2.686 [place] [id number] [facility] 009 Branch 2021-04-19 2021-04-19 Outpatient R [facility] [id number] Univers 15:45:00 15:45:00 [id number] [facility] 2021 2021-02-27 Inpatient EM Carlos Alberto [facility] MEDI.01 [id number] [facility] 15:47:00 11:36:00 Shadi [id number] [facility] 2021-02-25 2021-02-25 Outpatient Tulio BRENDA LABO [id number] [facility] 18:45:00 18:45:00 Jaiden [id number] [facility] 2021-02-25 2021-02-25 Inpatient EM Tulio BRENDA MEDI.01 [id number] [facility] 13:02:00 13:01:00 Jaiden [id number] [facility] 2020-12-28 2020-12-28 Outpatient MHIE IE [id number] Memoria 15:45:00 15:45:00 00 l Nghia 2020-07-02 2020-07-02 Emergency [facility] 1.2.794.951 [id number] 14:38:00 16:16:00 Elier Chris 350.1.13.10 [place] 4.2.7.2.686 [place] [id number] 2020-07-02 2020-07-02 Emergency X [facility] ERT [id number] Univers 14:28:00 14:28:00 [facility] 2020-04-29 2020-04-29 Emergency [facility] [id number] [id number] 12:18:00 15:08:00 Eddie Chris 350.1.13.10 [place] 4.2.7.2.686 [place] [id number] 2020-04-29 2020-04-29 Emergency [facility] ERT [id number] Univers 12:07:00 12:07:00 EDDIE morris [facility] 2020-03-17 2020-03-17 Emergency [facility] 1.2.458.648 [id number] 11:37:56 13:51:00 Elier Chris 350.1.13.10 [place] 4.2.7.2.686 [place] [id number] 2020-03-17 2020-03-17 Emergency X [facility] ERT [id number] Univers 11:26:00 11:26:00 [facility] 2020-03-17 2020-03-17 Orders Doctor WOLF 1.2.840.114 [id number] 00:00:00 00:00:00 Only Unassigned, JUANCARLOS 350.1.13.10 [place] [address].2.7.2.686 [id number] 009 2019-05-29 2019-05-29 Emergency X [facility] ERT [id number] Univers 06:47:32 09:46:00 MATEUS morris [facility] 2018-12-10 2018-12-10 Outpatient [facility] [id number] Magdiel 16:03:58 16:03:58 Health 2018-12-10 2018-12-10 Emergency [facility] [id number] Magdiel 11:20:39 11:20:39 Health 2017-09-01 2017-09-01 Emergency [facility] [id number] [facility] 10:29:00 10:29:00 Health 2015-02-04 2015-02-05 Outpt Diag nullFlavo [facility] [id number] Memoria 13:00:00 04:59:00 Services r Outpatient 00 l Govind Morin 2015-01-05 2015-01-06 Outpatient [facility] [id number] Memoria 15:04:00 04:59:00 r Nghia 31 l [facility] 2014-05-20 2014-05-20 Bedded [facility] [id number] 575 [facility] 11:14:00 19:30:00 Outpatient [facility] 00 l [facility] 2013-12-30 2014-01-03 Inpatient [facility] [id number] [facility] 07:50:00 03:00:00 [facility] 25 l [facility] Results Test Description Test Time Test Comments [...] ALKP) 88 Unit/L 45-117 N GLUCOSE BEDSIDE [id number] 19:48:00 Test Item Value Reference Range Interpretation Comments GLUCOSE BEDSIDE TESTING (test code = 98 mg/dL 70-110 N GLUBED) - XR SMALL [id number] 19:38:00 [facility] : 1965 Sex: F Name: RO MAYNARD [facility] : 1965Age/S: 56 / F [address] Unit #: [id number] Loc: [place] [address] Phys: Dawson Ramírez MD Acct: [id number] Dis Date: Status: ADM IN PHONE#: [phone] Exam Date: 2021 1900 FAX #: Reason: evaluate for Crohn's EXAMS: CPT: [id number] XR SMALL BOWEL [id number] Fluoro Time:0 DAP (Gy m2): Air Kerma (mGy): Location of dictation: H 14 Small bowel follow-through: HISTORY: Right upper quadrant pain, evaluate for Crohn's disease. COMMENT: The environmental lawyer radiograph shows normal bowel gas pattern. No [...] PAGE 1 Signed Report Name: RO MAYNARD [facility] : 1965 Age/S: 56 / F [address] Unit #: [id number] Loc: [place] [address] Phys: Dawson Ramírez MD Acct: [id number] Dis Date: Status: ADM INPHONE #: [phone] Exam Date: 2021 1900 FAX #: Reason: evaluate for Crohn's EXAMS: CPT: [id number] XR SMALL BOWEL 41842 FluoroTime: 0 DAP (Gy m2): Air Kerma (mGy): <Continued> Technologist: Zainab Moran, RT(R)(CT)(MRI) Trnscb Date/Time: 2021 (1937) Ed[place].PXC Orig Print D/T: S: 2021 (1941) PAGE 2 Signed ReportGLUCOSE BEDSIDE [id number] 17:05:00 Test Item Value Reference Range Interpretation Comments GLUCOSE BEDSIDE TESTING (test code 148 mg/dL 70-110 H = GLUBED) - HEPA IMAG INCL GB W [id number] 16:10:00 [facility] : 1965 Sex: F FAX: Jaiden Huff MD [phone] Camps: PM St: ADM FAX: Tisha Scott MD [phone] FAX: Dawson Hodge MD [phone] Name: RO MAYNARD : 1965 Age/S: 56/F [address] Unit #: [id number] Loc: [address] [place] [address] Phys: Dawson Ramírez Acct: [id number] Dis Date: Status:ADM IN PHONE #: [phone] Exam Date: 2021 1553 FAX #: Reason: RUQ pain EXAMS: CPT: [id number] HEPA IMAG INCL GB W PHA 42305 EXAMINATION: Nuclear medicine hepatobiliary scan withejection fraction [...] (1610) :[place]1 Orig Print D/T: S: 2021 (0396) PAGE 1 Signed ReportGLUCOSE BEDSIDE [id number] 11:56:00 Test Item Value Reference Range Interpretation Comments GLUCOSE BEDSIDE TESTING (test code 131 mg/dL 70-110 H = GLUBED) CBC W/AUTO [id number] 06:20:00 Test Item Value Reference Range Interpretation [...] NT WITH AUTO DIFFERENTI AL. COMPREHENSIVE METABOLIC [id number] 04:48:00 Test Item Value Reference Range Interpretation [...] 45-117 N TOTAL (test code = ALKP) [id number] 04:48:00 Test Item Value Reference Range Interpretation Comments PHOSPHOROUS (test code = PHOS) 3.8 MG/DL 2.5-4.9 N [id number] 04:48:00 Test Item Value Reference Range Interpretation Comments MAGNESIUM (test code = MAG) 2.1 MG/DL 1.8-2.4 N COMPREHENSIVE METABOLIC [id number] 04:46:00 Test Item Value Reference Range Interpretation [...] TOTAL (test Unit/L 45-117 code = ALKP) [id number] 04:46:00 Test Item Value Reference Range Interpretation Comments PHOSPHOROUS (test code = PHOS) MG/DL 2.5-4.9 [id number] 04:46:00 Test Item Value Reference Range Interpretation Comments MAGNESIUM (test code = MAG) MG/DL 1.8-2.4 [id number] 04:46:00 Test Item Value Reference Range Interpretation [...] may dexter yby method. Completed by Nursing: [id number] 04:46:00 Test Item Value Reference Range Interpretation Comments ALCOHOL (test code = ALC) < 3 MG/DL 0-10 N Completed by Nursing: NOCBC W/AUTO [id number] 04:36:00 Test Item Value Reference Range Interpretation [...] DIFF/SCN CRITERIA MDIFF) DRUGS OF ABUSE SCREEN [id number] 21:43:00 Test Item Value Reference Range Interpretation [...] this result as normal/abnormal . - MRI [id number] 19:05:00 [facility] : 1965 Sex: F FAX: Jaiden Huff MD [phone] Camps: PM St: ADM FAX: Tisha Scott MD [phone] Name: RO MAYNARD [facility] : 1965 Age/S: 55/F [address] Unit #: [id number] Loc: [place] [address] Phys: Jaiden Antunez MDAcct: [id number] Dis Date: Status: ADM IN PHONE #: [phone] Exam Date: 02/25/2021 1835 FAX #: Reason: deranged lfts, ruq pain EXAMS: CPT: [id number] MRI MRCP 21308 Location: H 31 MRI ABDOMEN WITHOUT CONTRAST/M PHLEBOTOMY SERVICES REPRESENTATIVE HISTORY: Abnormal LFTs. R ight upper quadrant [...] PAGE 1 Signed Report COVID 19 INHOUSE [id number] 16:22:00 Test Item Value Reference Range Interpretation Comments COVID 19 INHOUSE AG NEGATIVE Negative Per manu facturer, (test code = negative result s should [id number]) be treated aspr esumptive and, if inconsi [...] symptoms co nsistent with COVID-19. CBC W/AUTO [id number] 15:38:00 Test Item Value Reference Range Interpretation [...] WITH AUTO DIFFERENTIAL.NO PLT CLUMPS OBSERVED RBC [id number] 15:38:00 Test Item Value Reference Range Interpretation Comments PLATELET ESTIMATE (test ADEQUATE THOUSAND ADEQUATE code = PLTEST) PLATELET MORPHOLOGY (test NORMAL code = PLTMORPH) CBC W/AUTO [id number] 15:33:00 Test Item Value Reference Range Interpretation [...] code DIFF/SCN CRITERIA = MDIFF) CBC W/AUTO [id number] 15:33:00 Test Item Value Reference Range Interpretation [...] code DIFF/SCN CRITERIA = MDIFF) BASIC METABOLIC [id number] 14:26:00 Test Item Value Reference Range Interpretation [...] CA) 8.7 MG/DL 8.5-10.1 N HEPATIC FUNCTION [id number] 14:26:00 Test Item Value Reference Range Interpretation [...] 93 Unit/L 45-117 N code = ALKP) [id number] 14:26:00 Test Item Value Reference Range Interpretation Comments LIPASE (test code = LIP) 95 Unit/L 114-286 L UA RFLX MICR CULT IF [id number] 14:10:00 Test Item Value Reference Range Interpretation [...] RiskForSepsis-no oth srcUA RFLX MICR CULT IF [id number] 14:10:00 Test Item Value Reference Range Interpretation [...] code = UACULT) Indication for culture: RiskForSepsis-no [facility] W/AUTO [id number] 14:04:00 Test Item Value Reference Range Interpretation [...] (test code = DIFF/SCN CRITERIA MDIFF) CHEM [id number] 14:26:008[facility]ann[facility] [id number] 14:26:0091 [facility] HermannCHEM [id number] 14:26:0029[facility] HermannCHEM PANEL 2014-05-19 14:26:006.7[facility] HermannCHEM [id number] 14:26:0086[facility] HermannCHEM [id number] 14:26:000.8[facility]annCHEM [id number] 14:26:19474Ohbwraln HermannCHEM [id number] 14:26:003.7[facility] HermannCHEM [id number] 14:26:58081Oewriwiy HermannCHEM [id number] 14:26:009.7 [facility] [id number] 14:26:37489.6[facility] HermannHEMATOLOGY 2014-05-19 14:26:00 Test Item Value Reference Range Interpretation Comments MCH (test code = MCH) 35.5 pg 27.0-31.0 Memorial [id number] 14:26:0013.3[facility] HermannHEMATOLOGY 2014-05-19 14:26:0037.9Memorial [id number] 14:26:003.73Memorial [id number] 14:26:006.1Memorial [id number] 14:26:008.0Memorial [id number] 14:26:0017.2[facility] [id number] 14:26:50698Efbumvrv [id number] 14:26:00 35.0Memorial [id number] 14:26:000.93[facility] HermannHEMATOLOGY 2014-05-19 14:26:00 Test Item Value Reference Range Interpretation Comments PT (test code = PT) 12.4 s 12.0-14.7 [facility] HermannCHEM [id number] 14:26:008[facility] HermannCHEM PANEL 2014-05-19 14:26:0091[facility] HermannCHEM EXRJH8041-11-55 14:26:0029[facility]ann[facility]M JKROC4318-38-84 14:26:006.7[facility]ann[facility]M YVLQI7617-84-89 14:26:0086[facility]ann[facility] RPABR1696-40-48 14:26:000.8[facility]annCHEM RAYKL8958-46-95 14:26:89014Ianvqidz HermannCHEM HTHWI2187-24-31 14:26:003.7 [facility]annCHEM EXSHP6891-26-70 14:26:07739Naltsdss HermannCHEM PANEL 2014-05-19 14:26:009.7[facility] MdmdvphEJXBSQRGQQ2285-73-74 14:26:40337.6[facility] AlfnrjxCMKZOBOADU7471-77-07 14:26:00 Test Item Value Reference Range Interpretation Comments MCH (test code = MCH) 35.5 pg 27.0-31.0 [facility] CkuznlsPCYDASXJSJ0893-85-34 14:26:0013.3[facility] HermannHEMATOLOGY 2014-05-19 14:26:0037.9[facility] KrgrlknTMJQXTJJCH6200-72-52 14:26:003.73[facility] GbhxhkyWQRBSOJWVS4650-99-15 14:26:006.1[facility] FyfksglOTRZRDNUSB1762-93-16 14:26:008.0[facility] RtcjcnoLNIYNYVZYX8526-94-18 14:26:0017.2[facility] CGIJGPOAHS9722-13-69 14:26:88793Bsquxdrr KzxuxfgLOWMTPDABY7059-66-82 14:26:00 35.0[facility] JzmtgqjKFZCROCTIL7878-42-64 14:26:000.93[facility]annHEMATOLOGY 2014-05-19 14:26:00 Test Item Value Reference Range Interpretation Comments PT (test code = PT) 12.4 s 12.0-14.7 [facility]annCHEM OOVDP9062-55-01 09:42:002.0[facility] HermannCHEM PANEL 2014-01-01 09:42:84404Snpwjmcx HermannCHEM RTLEH0384-73-86 09:42:004[facility]annCHEM NLQUG1830-80-25 09:42:003.8[facility] HermannCHEM PNCWV2182-52-54 09:42:000.5[facility]annCHEM HSCNU2404-96-54 09:42:0094[facility]annCHEM PAZIN0827-30-20 09:42:99281Xshcdxmb HermannCHEM EBGWE8191-55-54 09:42:008.7 [facility]annCHEM ELIVW0368-20-99 09:42:20151Dltjlhzb HermannCHEM PANEL 2014-01-01 09:42:0030[facility]annCHEM OWOOM4084-00-08 09:42:0010.8[facility] TllvuofXWXMTBZVBD6131-99-53 09:42:004.4[facility] HkalhuxKQVSZMRRMW8255-86-38 09:42:003.80[facility] AculxhiHCVTKVWDPR8472-58-13 09:42:00 Test Item Value Reference Range Interpretation Comments MCH (test code = MCH) 31.1 pg 27.0-31.0 [facility] IjijpvjFKQKHPIEJS5011-95-57 09:42:0011.8[facility] HermannHEMATOLOGY 2014-01-01 09:42:0034.5[facility] JihndivFJQOCAWMUS3255-86-79 09:42:0090.6[facility] BctdqukEURCCXVUSN4073-98-40 09:42:0016.3[facility] ZhbxzldNJUCRUSYSW6705-07-59 09:42:0034.3[facility] FhhaalsDQFAJAYPYC9067-43-26 09:42:65572Lasodfeu Hendricks OXSFCEODMJ0331-56-07 09:42:007.9[facility] YhuvmlgVZOTMISADG2209-44-47 09:42:001.6 [facility] ZeaxkofMLGEBJUTLF6678-48-07 09:42:000.2[facility] HermannHEMATOLOGY 2014-01-01 09:42:002.6[facility] LwnhwlyCKHQOROIWJ9290-97-80 09:42:007.4[facility] NpnzrzaLJGVWNQNHZ9200-49-95 09:42:001.3[facility] DyabpghOQYDMROGEU8136-35-35 09:42:000.3[facility] ChpbusnIGKTSLTNCH6880-71-49 09:42:000.1[facility] XLDWPXHTTW5968-96-00 09:42:000.0[facility] EnjcztyRTMNLIUFGX0032-97-13 09:42:00 30.7[facility] NqhfjhsQAXCSWIEQF7886-01-54 09:42:0060.1[facility] HermannCHEM PANEL 2014-01-01 09:42:002.0[facility] HermannCHEM SDYXO8894-27-16 09:42:79482Kwgykzhz HermannCHEM LPVLB7470-98-29 09:42:004[facility]annCHEM WIOXB9081-32-21 09:42:003.8[facility]annCHEM OESQX4762-04-80 09:42:000.5[facility] HermannCHEM MEQUC2020-77-81 09:42:0094[facility]annCHEM RZSXY1809-55-62 09:42:78155 [facility]annCHE[facility] XRHMO0865-90-89 09:42:008.7[facility] HermannCHEM PANEL 2014-01-01 09:42:86905Zpsipdaq HermannCHEM AAWCF0186-64-74 09:42:0030[facility]annCHEM KGGIU9327-22-65 09:42:0010.8[facility] MjtceozVJMUPPSEWB1054-68-60 09:42:004.4[facility] CoimallFDTEUMFSKB8747-53-44 09:42:003.80[facility] BIAZWFORCH7187-81-60 09:42:00 Test Item Value Reference Range Interpretation Comments MCH (test code = MCH) 31.1 pg 27.0-31.0 [facility] EnpbpxkXZBPBBKVGK8581-29-52 09:42:0011.8[facility] HermannHEMATOLOGY 2014-01-01 09:42:0034.5[facility] OxjogisJPTTGYXNPP5355-78-74 09:42:0090.6[facility] IwwkyeeVXAQWPEKLW4873-16-82 09:42:0016.3[facility] MhnzovcHAFZDHDJKR0833-10-91 09:42:0034.3[facility] NnoaexhDTWEDAYAZE0660-44-07 09:42:42127Mahzeigp N[place] DBCRMNTYKR6310-12-23 09:42:007.9[facility] BjykfpkBSQHTQZOFW3417-55-13 09:42:001.6 [facility] AcwmqtuIFZDUPJYJW3991-33-27 09:42:000.2[facility] HermannHEMATOLOGY 2014-01-01 09:42:002.6[facility] ZnnsmlmPUITCCBPIQ3056-16-04 09:42:007.4[facility] UobkencCIWGAUGEHB1007-58-87 09:42:001.3[facility] PngpkgcRGNHJGQWOT6199-06-53 09:42:000.3[facility] BvyqqqwXGUAYJTIMA1989-39-22 09:42:000.1[facility] YWPZXNZCTQ8860-96-22 09:42:000.0[facility] RtwnspcRCBFOFVMON0307-81-41 09:42:00 30.7[facility] IpiqijxWOBGTKZJEF6107-71-29 09:42:0060.1[facility] HermannCHEM PANEL 2013-12-30 12:13:0010[facility] HermannCHEM VQBFB2557-15-44 12:13:006.9[facility] HermannCHEM EKRRO3654-01-64 12:13:86544Ebbljqsr HermannCHEM TVHXX6976-21-38 12:13:0084[facility]annCHEM QAEVW3568-64-21 12:13:003.9[facility] HermannCHEM GFLSP8279-70-38 12:13:20949Mmuxlywz HermannCHEM EICEZ7821-91-24 12:13:000.7 [facility]annCHEM TUPVA1909-81-94 12:13:007[facility] HermannCHEM PANEL 2013-12-30 12:13:000.3[facility] HermannCHEM RNQOF9655-69-39 12:13:0071[facility] HermannCHEM AHGXU4403-09-32 12:13:0021[facility]annCHEM GIYWA6518-20-75 12:13:0020[facility]annCHEM FBGWO0731-14-38 12:13:006.1[facility] HermannCHEM ILWAL6169-04-88 12:13:0033[facility]annCHEM HKFKV7005-39-59 12:13:003.3 [facility]annCHEM WYDVF3508-44-14 12:13:008.4[facility] HermannCHEM PANEL 2013-12-30 12:13:28529Docjozmw ZllwomkBNRMABOPTA7135-47-76 12:13:000.0[facility] KqdeuvdWUYQVGMQOZ5806-04-83 12:13:0063.5[facility] ExfzlypUNPISYNBPK1702-09-39 12:13:000.3[facility] WvhudauJXVCAHNVEJ4861-66-56 12:13:000.2[facility] SPTBOPUROJ1786-75-64 12:13:001.5[facility] QdxfehrINFMUINIPN6116-06-57 12:13:003.3 [facility] NclqelbWBCELANMHS2222-01-47 12:13:000.1[facility] HermannHEMATOLOGY 2013-12-30 12:13:0028.9[facility] LsqlehdBQOAOFBXEN7769-63-60 12:13:006.2[facility] CrllztoZXBPHWUCNO5549-88-12 12:13:001.2[facility] FahnnomSEHJNECPUJ3294-63-47 12:13:0034.3[facility] NdrbovaXTTLOQCKBH6501-95-65 12:13:0016.5[facility] EPLPWNCHTM2602-13-94 12:13:00 Test Item Value Reference Range Interpretation Comments MCH (test code = MCH) 31.5 pg 27.0-31.0 [facility] LysclmeVAERORUVQB5804-65-69 12:13:0091.9[facility] HermannHEMATOLOGY 2013-12-30 12:13:36341Yqrrnrwz MamunwwZJTVYTHBIF5940-04-61 12:13:007.9[facility] CpxypgqFYJLMJBHSA9360-58-11 12:13:003.91[facility] UmoczcnXVOVSNMCYD3110-12-03 12:13:0035.9[facility] YkhbzryOBJADPKJLV1975-77-04 12:13:0012.3[facility] WKECWXHYJX1397-14-54 12:13:005.1[facility] HermannCHEM YIAPT1249-27-99 12:13:001.8 [facility]annCHEM UAHTK4055-12-03 12:13:002.6[facility] HermannCHEM PANEL 2013-12-30 12:13:002.8[facility] HermannCHEM MPJIT1736-18-35 12:13:001.2[facility] HermannCHEM QNDFP1362-73-67 12:13:0010[facility] HermannCHEM SIYPW4685-51-29 12:13:006.9[facility] HermannCHEM BDBEC7944-01-03 12:13:97923Cvjsxjap HermannCHEM YSHGT8217-22-85 12:13:0084[facility]annCHEM IZJXY1216-24-69 12:13:003.9 [facility]annCHEM QPEEW9143-10-53 12:13:36510Wcklbjvn HermannCHEM PANEL 2013-12-30 12:13:000.7[facility] HermannCHEM NPJTU8025-65-58 12:13:007[facility]annCHEM CBDWC5859-05-37 12:13:000.3[facility]annCHEM TZLGJ5165-16-73 12:13:0071[facility]annCHEM AXRNL3632-39-08 12:13:0021[facility]annCHEM OEHQK7032-98-64 12:13:0020[facility]annCHEM BMSZX5018-83-03 12:13:006.1 [facility] HermannCHEM OHTER7555-19-75 12:13:0033[facility] HermannCHEM PANEL 2013-12-30 12:13:003.3[facility] HermannCHEM USHFL5065-18-94 12:13:008.4[facility] HermannCHEM WWBTP6951-96-33 12:13:20417Glbgycid MrxdirwSRXGYYKIOE1231-53-45 12:13:000.0[facility] CrgfemcHDIFLVSXWF8954-10-35 12:13:0063.5[facility] MXXIILHKQJ4264-35-26 12:13:000.3[facility] KpbqbxmFNKRFCXSMT0879-37-86 12:13:000.2 [facility] DkbfgegJQGKSVWSSA6700-22-35 12:13:001.5[facility] HermannHEMATOLOGY 2013-12-30 12:13:003.3[facility] MdpqaioRVKKWHBEZK8479-65-66 12:13:000.1[facility] JualbiaBUQZLSOLXA9376-68-25 12:13:0028.9[facility] LaehhkgJZPSGZHDAD5998-90-36 12:13:006.2[facility] ArqpoicCRHZKVBRVI7161-50-08 12:13:001.2[facility] XBEXSXXVME0495-28-63 12:13:0034.3[facility] WjyyhuyODESSQLBHP8732-97-02 12:13:00 16.5[facility] BjzvkpeTQIDXLOOSL3634-26-88 12:13:00 Test Item Value Reference Range Interpretation Comments MCH (test code = MCH) 31.5 pg 27.0-31.0 [facility] LhoirhuVKJDCHCEQH0021-62-14 12:13:0091.9[facility] HermannHEMATOLOGY 2013-12-30 12:13:32960Lelfvamg UwjyifdCZESXLKMMP9500-15-82 12:13:007.9[facility] KuphlmoBQJZSRFCYU6015-16-09 12:13:003.91[facility] WkioynlVDPUQRUQFT4562-73-98 12:13:0035.9[facility] OqqugqzQZZASWGQCS0002-73-93 12:13:0012.3[facility] NEWBWSMGIZ7442-88-41 12:13:005.1[facility] HermannCHEM FQVEL4118-22-08 12:13:001.8 [facility]annCHEM WSJIU5808-16-24 12:13:002.6[facility] HermannCHEM PANEL 2013-12-30 12:13:002.8[facility] HermannCHEM ZUIBB8959-22-85 12:13:001.2[facility]
[2021-08-19 06:23] LABS: Absolute Lymphocytes (CBC) 3.6 K/uL (0.7-4.9); Basophils % 0.1 % (0-1.3); Lymphocytes % 42.6 % (15.3-44.8); RBC Red Blood Cell Count 4.34 M/uL (3.86-4.86)
[2021-08-19] MEDS ORDERED: MORPHINE 4 MG/ML SYR ONE ×2 (06:31→07:44)
[2021-08-19] MEDS ORDERED: ONDANSETRON 4 MG/2 ML VIAL ONE (06:32)
[2021-08-19 06:35] LABS: ALT/SGPT 20 U/L (12-78); Albumin 3.3 g/dL (3.4-5.0); Alkaline Phosphatase 123 U/L (45-117); BUN Blood Urea Nitrogen 7 mg/dL (7-18); Bicarbonate 26 mmol/L (21-32); Bilirubin Direct < 0.1 mg/dL (0-0.2); Bilirubin Total 0.2 mg/dL (0.2-1.0); Glucose Level 95 mg/dL (74-106); Lipase 441 U/L (73-393); Protein, Total 7.6 g/dL (6.4-8.2); Sodium Level 139 mmol/L (136-145)
[2021-08-19 06:36] LABS: AST/SGOT 19 U/L (15-37); Potassium 3.5 mmol/L (3.5-5.1)
--- NOTE | 2021-08-19 07:42 | RAD REPORT ---
EXAM DESCRIPTION: CTAbdomen Pelvis W Contrast - 08/19/2021 7:31 am CLINICAL HISTORY: ABD PAIN COMPARISON: Abdomen Pelvis W Contrast dated 08/14/2021; Abdomen Pelvis W Contrast dated ; Abdomen Pelvis W Contrast dated 09/16/2020 TECHNIQUE: CT of the abdomen and pelvis was performed. All CT scans are performed using dose optimization technique as appropriate and may include automated exposure control or mA/KV adjustment according to patient size. FINDINGS: Lower chest: Small focus of atelectasis versus scarring in the lingula. Liver: No acute abnormality or suspicious lesions. Biliary: No biliary ductal dilatation. Stomach: No significant focal abnormality. Duodenum: No significant focal abnormality. Pancreas: No significant abnormality. Spleen: No significant abnormality. Adrenal: No suspicious lesions. Kidney/ureter: No hydronephrosis. No renal calculi. Retroperitoneum: No retroperitoneal adenopathy. Vascular: Atherosclerosis. Bowel: Nonspecific fluid distended small bowel and colon with air-fluid levels.. Appendectomy. Peritoneum: No ascites or free air. Bladder: Grossly unremarkable. Reproductive: Hysterectomy. Bones: No acute fracture. L2 kyphoplasty. Multilevel degenerative changes are present in the spine. Other: n/a IMPRESSION: No acute findings within the abdomen or pelvis. Nonspecific fluid distention of the smal l bowel and colon could represent a gastroenteritis. No bowel obstruction. Appendectomy.
--- NOTE | 2021-08-19 07:43 | RAD REPORT ---
EXAM DESCRIPTION: US - Abdomen Exam Limited - 08/19/2021 6:38 am CLINICAL HISTORY: r/o GB;Abd pain COMPARISON: Abdomen Pelvis W Contrast dated 08/14/2021 FINDINGS: The gallbladder demonstrates no gallstones. No pericholecystic fluid or gallbladder wall t hickening. The common bile duct is normal measuring 3 mm. The gallbladder was contracted. The liver demonstrates no findings of intrahepatic biliary dilatation. IMPRESSION: Negative for cholelithiasis, acute cholecystitis, or biliary ductal dilatation.
--- NOTE | 2021-08-19 07:55 | EDPHYS ---
Physician Documentation [facility] Name: Tita Elizabeth Age: 56 yrs Sex: Female : 1965 Arrival Date: 08/19/2021 Time: 05:31 Bed 15 Private MD: ED Physician Nicolas Tobar HPI: 08/19 06:56 This 56 yrs old Female presents to ER via Ambulatory with complaints of Abdominal Pain .jr8 06:56 The patient presents with abdominal pain in the right upper quadrant. Onset: The jr8 symptoms/episode began/occurred acutely, today. The symptoms radiate to right back, the right flank. Associated signs and symptoms: Pertinent positives: nausea, vomiting, and diarrhea. Severity of pain: At its worst the pain was moderate in the emergency department the pain is unchanged. The patient has not experienced similar symptoms in the past. The patient has not recently seen a physician. 06:56 This is a emergency room with acute onset right upper quadrant pain radiating to the jr8 right back and flank region. Patient stated that for the past few weeks she has been suffering from occasional nausea vomiting and diarrhea.. Historical: - Allergies: 05:51 Sulfa (Sulfonamide Antibiotics); mk - Home Meds: 05:51 atorvastatin oral 1 tab [Active]; losartan oral [Active]; mk - Immunization history:: Adult Immunizations up to date, Adult Immunizations up to date, Client reports receiving the 2nd dose of the Covid vaccine. - Social history:: Smoking status: Patient reports the use of cigarette tobacco products, denies chronic smoking, but will smoke occasionally. - Family history:: not pertinent. - Code Status:: Full code. ROS: 06:56 Eyes: Negative for injury, pain, redness, and discharge, ENT: Negative for injury, jr8 pain, and discharge, Neck: Negative for injury, pain, and swelling, Cardiovascular: Negative for chest pain, palpitations, and edema, Respiratory: Negative for shortness of breath, cough, wheezing, and pleuritic chest pain, Back: Negative for injury and pain, MS/Extremity: Negative for injury and deformity, Skin: Negative for injury, rash, and discoloration, Neuro: Negative for headache, weakness, numbness, tingling, and seizure. 06:56 Abdomen/GI: Positive for abdominal pain, nausea, vomiting, and diarrhea. Exam: 06:56 Constitutional: This is a well developed, well nourished patient who is awake, alert, jr8 and in no acute distress. Cardiovascular: Regular rate and rhythm with a normal S1 and S2. No gallops, murmurs, or rubs. Normal PMI, no JVD. No pulse deficits. Respiratory: Lungs have equal breath sounds bilaterally, clear to auscultation and percussion. No rales, rhonchi or wheezes noted. No increased work of breathing, no retractions or nasal flaring. Back: No spinal tenderness. No costovertebral tenderness. Full range of motion. Skin: Warm, dry with normal turgor. Normal color with no rashes, no lesions, and no evidence of cellulitis. MS/ Extremity: Pulses equal, no cyanosis. Neurovascular intact. Full, normal range of motion. Neuro: Awake and alert, GCS 15, oriented to person, place, time, and situation. Cranial nerves II-XII grossly intact. Motor strength 5/5 in all extremities. Sensory grossly intact. 06:56 Abdomen/GI: Inspection: abdomen appears normal, Bowel sounds: active, all quadrants, Palpation: soft, in all quadrants, moderate abdominal tenderness, in the right upper quadrant, mass, is not appreciated, rebound tenderness, is not appreciated, voluntary guarding, is not appreciated, involuntary guarding, is not appreciated, no appreciated organomegaly, Indicators: McBurney's point is not tender, Stevens's sign is positive, Rovsing's sign is negative, Liver: tenderness, is not appreciated. Vital Signs: 05:49 BP 179 / 90; Pulse 68; Resp 20; Pulse Ox 97% on R/A; Weight 61.1 kg; mk 07:30 BP 170 / 87; Pulse 71; Resp 17; Pulse Ox 100% ; Pain 8/10; eo2 08:09 BP 154 / 97; Pulse 75; Resp 17; Pulse Ox 99% ; Pain 5/10; eo2 MDM: 06:05 Patient medically screened. jr8 07:52 Data reviewed: vital signs, nurses notes, lab test result(s), radiologic studies, CT jr8 scan, ultrasound. Data interpreted: Pulse oximetry: on room air is 100 %. Interpretation: normal. Counseling: I had a detailed discussion with the patient and/or guardian regarding: the historical points, exam findings, and any diagnostic results supporting the discharge/admit diagnosis, lab results, radiology results, the need for outpatient follow up, a communication clerk, to return to the emergency department if symptoms worsen or persist or if there are any questions or concerns that arise at home. 07:53 ED course: Discussed with patient that there is no acute findings on labs or imaging at [facility] this time. There was some mild small and large bowel loop dilation consistent with a gastroenteritis. Patient does have a history of Crohn's in the past which could also have her appear in this presentation. As such I will start her on Cipro Flagyl along with some antiemetics and dicyclomine. To have her follow-up with Dr. Ramírez who is her communication clerk for further evaluation. Patient knows to come back if she were to worsen at any point in time.. 08/19 06:05 Order name: Basic Metabolic Panel; Complete Time: 06:38 08/19 06:05 Order name: CBC with Diff; Complete Time: 06:30 [facility] 08/19 06:05 Order name: Hepatic Function; Complete Time: 06:38 8 08/19 06:05 Order name: Lipase; Complete Time: 06:38 8 08/19 06:12 Order name: US Abdomen Limited; Complete Time: 07:46 08/19 06:40 Order name: CT Abd/Pelvis - IV Contrast Only; Complete Time: 07:46 08/19 06:05 Order name: IV Saline Lock; Complete Time: 06:14 08/19 06:05 Order name: Labs collected and sent; Complete Time: 06:14 Administered Medications: 06:36 Drug: morphine 4 mg Route: IVP; Site: right forearm; mk 07:25 Follow up: Response: No adverse reaction; Pain is unchanged, physician notified eo2 06:36 Drug: Zofran (Ondansetron) 4 mg Route: IVP; Site: right forearm; mk 07:25 Follow up: Response: No adverse reaction eo2 07:47 Drug: morphine 4 mg Route: IVP; Site: right antecubital; eo2 08:09 Follow up: BP 154 / 97; Pulse 75 bpm; Resp 17 bpm; Pulse Ox 99% ; Pain 5/10 Adult; eo2 Response: No adverse reaction; Marked relief of symptoms; RASS: Alert and Calm (0); Pt aaox4, reports pain is improved, ambulated with strong and steady gait. Disposition: 20:58 Co-signature as Attending Physician, Nicolas Tobar MD I agree with the assessment and rn plan of care. Attestation: The patient's history, exam findings, diagnostics, and a summary of any interventions or procedures was reviewed in detail with Thomas GEE. Disposition Summary: 08/19/21 07:55 Discharge Ordered Location: Home jr Problem: new jr8 Symptoms: have improved jr8 Condition: Stable jr8 Diagnosis - Diarrhea, unspecified jr8 - Vomiting jr8 - Upper abdominal pain, unspecified jr8 Followup: jr8 - With: Dawson Ramírez MD - When: 7 - 10 days - Reason: Recheck today's complaints, Continuance of care, Re-evaluation by your physician Discharge Instructions: - Discharge Summary Sheet jr8 - Abdominal Pain, Adult jr8 - Diarrhea, Adult jr8 - Vomiting, Adult jr8 Forms: - Medication Reconciliation Form jr8 - Thank You Letter jr8 - Antibiotic Education jr8 - Prescription Opioid Use jr8 Prescriptions: - Cipro 500 mg Oral Tablet - take 1 tablet by ORAL route every 12 hours for 10 days; 20 tablet; Refills: 0, jr8 Product Selection Permitted - Flagyl 500 mg Oral Tablet - take 1 tablet by ORAL route every 6 hours for 10 days; 40 tablet; Refills: 0, jr8 Product Selection Permitted - promethazine 25 mg Oral Tablet - take 1 tablet by ORAL route every 6 hours As needed; 20 tablet; Refills: 0, jr8 Product Selection Permitted - dicyclomine 20 mg Oral Tablet - take 1 tablet by ORAL route 3 times per day As needed; 21 tablet; Refills: 0, jr8 Product Selection Permitted Signatures: Dispatcher [employer] EDNicolas Everett MD MD rn Roszak, Josh, PA PA jr8 Valerie Brooks RN RN eo2 Arcelia Ortega RN RN taurus Corrections: (The following items were deleted from the chart) 05:55 05:51 PMHx: Hypertension; [facility] 05:55 05:51 PMHx: Arthritis; [facility] 05:55 05:51 PMHx: lyme disease; [facility] 05:55 05:51 PMHx: chron's; mk 05:55 05:51 PMHx: immune disorder; [facility] 05:55 05:51 PSHx: Appendectomy; [facility] 05:55 05:51 PSHx: hysterectomy; [facility] 05:55 05:51 PSHx: Tonsillectomy; [facility] 05:55 05:51 PSHx: bladder sling; [facility]
--- NOTE | 2021-08-19 07:55 | ER ---
Nurse's Notes [facility] Name: Tita Elizabeth Age: 56 yrs Sex: Female : 1965 Arrival Date: 08/19/2021 Time: 05:31 Bed 15 Private MD: Diagnosis: Diarrhea, unspecified;Vomiting;Upper abdominal pain, unspecified Presentation: 08/19 05:49 Chief complaint: Patient states: Reports RUQ pain that radiates to the R back that mk started at 0300 this AM. Also reports that she has been having vomiting/diarrhea x3 weeks that has been worse this past week. Hx HTN. Coronavirus screen: Vaccine status: Patient reports being unvaccinated. Ebola Screen: Patient negative for fever greater than or equal to 101.5 degrees Fahrenheit, and additional compatible Ebola Virus Disease symptoms. Initial Sepsis Screen: Does the patient meet any 2 criteria? No. Patient's initial sepsis screen is negative. Does the patient have a suspected source of infection? No. Patient's initial sepsis screen is negative. Risk Assessment: Do you want to hurt yourself or someone else? Patient reports no desire to harm self or others. Onset of symptoms was August 19, 2021 at 03:00. 05:49 Method Of Arrival: Ambulatory 05:49 Acuity: JAY 3 Triage Assessment: 05:55 General: Appears in no apparent distress. General: Behavior is calm, cooperative. General: Appears. Pain: Denies pain. Pain: Complains of pain in abdomen Pain radiates to back Pain currently is 8 out of 10 on a pain scale. Quality of pain is described as radiating, sharp, Pain began suddenly, Is lasting more than 1 hour. Alleviated by nothing. Neuro: Oriented to person, place, time, situation, Machine Group Leader are equal bilaterally. Historical: - Allergies: 05:51 Sulfa (Sulfonamide Antibiotics); - Home Meds: 05:51 atorvastatin oral 1 tab [Active]; losartan oral [Active]; - Immunization history:: Adult Immunizations up to date, Adult Immunizations up to date, Client reports receiving the 2nd dose of the Covid vaccine. - Social history:: Smoking status: Patient reports the use of cigarette tobacco products, denies chronic smoking, but will smoke occasionally. - Family history:: not pertinent. - Code Status:: Full code. Screenin:49 Abuse screen: Denies threats or abuse. Nutritional screening: No deficits noted. mk Tuberculosis screening: No symptoms or risk factors identified. Fall Risk None identified. Assessment: 05:57 General: Appears in no apparent distress. Pain:. Neuro: Level of Consciousness is mk awake, alert, obeys commands, Oriented to person, place, time, situation, Machine Group Leader are equal bilaterally Moves all extremities. Gait is steady, Cardiovascular: Heart tones S1 S2 Capillary refill < 3 seconds JVD is absent Patient's skin is warm and dry. Rhythm is sinus rhythm. Respiratory: Airway is patent Trachea midline Respiratory effort is even, unlabored, Respiratory pattern is regular, symmetrical, Breath sounds are clear. GI: Abdomen is non-distended, Bowel sounds present X 4 quads. Reports upper abdominal pain, nausea, vomiting, since abdominal pain since 0300, n/v for 3 weeks worst the past week. : No signs and/or symptoms were reported regarding the genitourinary system. Derm: Skin is intact, is healthy with good turgor, Skin is dry, Skin is pink, warm \T\ dry. Skin temperature is warm. Musculoskeletal: 07:38 Reassessment: Patient returned from CT scan, reports worsening pain, requesting pain eo2 medication, will make provider aware. 07:52 Reassessment: Dr. Huggins at bedside to update pt on results. eo2 08:12 Reassessment: Pt remains aaox4, denies any dizziness, drowsiness. Pt called for a [facility] eo2 service to pick her up, RN spoke with cab lady who confirmed she will pick pt up and walk pt to her door at home. Pt noted with strong and steady gait upon ambulation. Vital Signs: 05:49 BP 179 / 90; Pulse 68; Resp 20; Pulse Ox 97% on R/A; Weight 61.1 kg; mk 07:30 BP 170 / 87; Pulse 71; Resp 17; Pulse Ox 100% ; Pain 8/10; eo2 08:09 BP 154 / 97; Pulse 75; Resp 17; Pulse Ox 99% ; Pain 5/10; eo2 ED Course: 05:31 Patient arrived in ED. ja2 05:43 Arcelia Ortega, RN is Primary Nurse. mk 05:49 Inserted saline lock: 22 gauge in right antecubital area, using aseptic technique. ds4 Blood collected. 05:51 Triage completed. mk 05:56 Arm band placed on. mk 05:57 Patient has correct armband on for positive identification. Allergy band placed. Placed mk in gown. Bed in low position. Call light in reach. Side rails up X 1. 05:57 alarm security or surveillance monitor on. Pulse ox on. NIBP on. mk 06:05 Thomas Huggins PA is PHCP. jr8 06:05 Nicolas Tobar MD is Attending Physician. jr8 06:14 Basic Metabolic Panel Sent. mk 06:14 CBC with Diff Sent. mk 06:14 Hepatic Function Sent. mk 06:14 Lipase Sent. mk 06:38 US Abdomen Limited In Process Unspecified. EDMS 07:31 CT Abd/Pelvis - IV Contrast Only In Process Unspecified. EDMS 07:37 Arcelia Ortega, RN is Primary Nurse. mk 07:38 Valerie Brooks, DALJIT is Primary Nurse. eo2 07:54 Dawson Ramírez MD is Referral Physician. jr8 08:12 No apparent distress. eo2 08:12 No provider procedures requiring assistance completed. IV discontinued, intact. eo2 Administered Medications: 06:36 Drug: morphine 4 mg Route: IVP; Site: right forearm; mk 07:25 Follow up: Response: No adverse reaction; Pain is unchanged, physician notified eo2 06:36 Drug: Zofran (Ondansetron) 4 mg Route: IVP; Site: right forearm; mk 07:25 Follow up: Response: No adverse reaction eo2 07:47 Drug: morphine 4 mg Route: IVP; Site: right antecubital; eo2 08:09 Follow up: BP 154 / 97; Pulse 75 bpm; Resp 17 bpm; Pulse Ox 99% ; Pain 5/10 Adult; eo2 Response: No adverse reaction; Marked relief of symptoms; RASS: Alert and Calm (0); Pt aaox4, reports pain is improved, ambulated with strong and steady gait. Intake: Outcome: 07:55 Discharge ordered by . jr8 08:12 Discharged to home ambulatory. eo2 08:12 Condition: stable 08:12 Discharge instructions given to patient, Instructed on discharge instructions, follow up and referral plans. medication usage, Demonstrated understanding of instructions, follow-up care, medications, Prescriptions given X 4. 08:28 Patient left the ED. eo2 Signatures: Dispatcher [employer] EDMS Thomas Huggins PA PA jr8 Beck Trotter ds4 Emilie Espinoza Eunice, RN RN eo2 Arcelia Ortega RN RN taurus Corrections: (The following items were deleted from the chart) 05:55 05:51 PMHx: Hypertension; [facility] 05:55 05:51 PMHx: Arthritis; [facility] 05:55 05:51 PMHx: lyme disease; [facility] 05:55 05:51 PMHx: chron's; [facility] 05:55 05:51 PMHx: immune disorder; [facility] 05:55 05:51 PSHx: Appendectomy; [facility] 05:55 05:51 PSHx: hysterectomy; [facility] 05:55 05:51 PSHx: Tonsillectomy; [facility] 05:55 05:51 PSHx: bladder sling; [facility]
[2021-08-19 08:38] VITALS: BP 154/97; O2SAT 99
== END 2021-08-19 08:28 | disposition home or self-care (01) ==
LOC: ER 05:29
DX: R19.7 Diarrhea, unspecified (principal); R11.10 Vomiting, unspecified; F17.210 Nicotine dependence, cigarettes, uncomplicated; Z88.2 Allergy status to sulfonamides
CPT/HCPCS: 85025; 80048; 36415; 80076; 83690; 74177; 76705; 99284; Q9967; J2405

== ENCOUNTER 2022-05-12 19:44 | Emergency (ER) | payer OTHER ==
--- OUTSIDE RECORDS SUMMARY | 2022-05-12 19:50 | XMS REPORT | Continuity of Care Document ---
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 2014-01-02 12:20:00 [facility] Weight 2013-12-30 08:54:00 [facility] Height 2013-12-30 08:54:00 162.56 cm [facility] BMI Calculated 2013-12-30 08:54:00 [facility] Weight 2013-12-30 08:52:00 [facility] BMI Calculated 2013-12-30 08:52:00 [facility] Height 2013-12-30 08:52:00 162.56 cm [facility] Weight 2013-12-30 08:40:00 [facility] BMI Calculated 2013-12-30 08:40:00 [facility] Height 2013-12-30 08:40:00 162.56 cm [facility] Procedures Procedure Date / Time Performed Performing Clinician Sourc e THRPY PROPH/DX INJ 2018-12-11 03:53:04 Jenifer Valenzuela [facility] INTR[facility] Abdominal aorta angiogram [facility] Abdominal hysterectomy [facility] Angiography of renal [facility] arteries, bilateral Appendectomy [facility] mesenteric [facility] giles angiography Suspension of bladder [facility] ermann Tonsillectomy [facility] Plan of Care Planned Activity Planned Date Details Comments Source Future Scheduled 2022-05-28 IMM Influenza Seasonal H [facility] Test 00:00:00 (>/= 19 yrs) [code = IMM Influenza Seasonal (>/= 19 yrs)] Future Scheduled 2022-04-26 HEPATITIS B VACCINES [facility] Test 16:18:33 (1 of 3 - 3-dose series) [code = HEPATITIS B VACCINES (1 of 3 - 3-dose series)] Future Scheduled 2022-04-26 COVID-19 VACCINE (#1) [facility] Test 16:18:33 [code = COVID-19 VACCINE (#1)] Future Scheduled 2022-04-26 Screening for [facility] Test 16:18:33 malignant neoplasm of cervix (procedure) [code = 568134613] Future Scheduled 2022-04-26 COLONOSCOPY SCREENING [facility] Test 16:18:33 [code = COLONOSCOPY SCREENING] Future Scheduled 2022-04-26 SHINGLES VACCINES (1 [facility] Test 16:18:33 of 2) [code = SHINGLES VACCINES (1 of 2)] Future Scheduled 2022-04-26 BREAST CANCER [facility] Test 16:18:33 SCREENING [code = BREAST CANCER SCREENING] Future Scheduled 2022-04-26 INFLUENZA VACCINE [facility] Test 16:18:33 [code = INFLUENZA VACCINE] Future Scheduled 2021-11-03 SHINGLES VACCINES (#1) [facility] Test 06:47:29 [code = SHINGLES VACCINES (#1)] Future Scheduled 2021-11-03 BREAST CANCER [facility] Test 06:47:29 SCREENING [code = BREAST CANCER SCREENING] Future Scheduled 2021-11-03 INFLUENZA VACCINE [facility] Test 06:47:29 [code = INFLUENZA VACCINE] Future Scheduled 2021-11-03 COVID-19 VACCINE (1) [facility] Test 06:47:29 [code = COVID-19 VACCINE (1)] Future Scheduled 2021-11-03 Screening for [facility] Test 06:47:29 malignant neoplasm of cervix (procedure) [code = 084855742] Future Scheduled 2021-11-03 COLONOSCOPY SCREENING [facility] Test 06:47:29 [code = COLONOSCOPY SCREENING] Future Scheduled 2021-05-28 IMM Influenza Seasonal H [...] 19 yrs)] Future Scheduled 2013 [facility] Test 00:[facility]:00 malignant neoplasm of colon (procedure) [code = 648583882] Future Scheduled 2013 [facility] for [facility] Test 00:00:00 malignant neoplasm of colon (procedure) [code = 013872480] Future Scheduled 2013 [facility] Test 00:00:00 malignant neoplasm of colon (procedure) [code = 886310203] Future Scheduled 2013 [facility] Test 00:00:00 malignant neoplasm of colon (procedure) [code = 657678155] Future Scheduled 2003 Breast Cancer Scrn Harri [...] malignant neoplasm of cervix (procedure) [code = 409831062] Future Scheduled 1993 [facility] Test 00:00:00 malignant neoplasm of cervix (procedure) [code = 377312503] Future Scheduled 1993 [facility] Test 00:00:00 malignant neoplasm of cervix (procedure) [code = 553335656] Future Scheduled 1993 [facility] Test 00:00:00 malignant neoplasm of cervix (procedure) [code = 281655101] Future Scheduled 1993 [facility] Test 00:00:00 malignant neoplasm of cervix (procedure) [code = 696145129] Future Scheduled 1993 [facility] Test 00:00:00 malignant neoplasm of cervix (procedure) [code = 709071493] Future Scheduled 1993 [facility] Test 00:00:00 malignant neoplasm of cervix (procedure) [code = 389736862] Future Scheduled 1993 [facility] Test 00:00:00 malignant neoplasm of cervix (procedure) [code = 623723008] Future Scheduled 1975 COVID-19 Vaccine (1) [facility] Test 00:00:00 [code = COVID-19 Vaccine (1)] Future Scheduled 1969 Imm Pneumococcal 0-64 [facility] Test 00:00:00 (1 of 2 - PPSV23) [code = Imm Pneumococcal 0-64 (1 of 2 - PPSV23)] Future Scheduled 1969 Imm Pneumococcal 0-64 [facility] Test 00:00:00 (1 of 2 - PPSV23) [code = Imm Pneumococcal 0-64 (1 of 2 - PPSV23)] Future Scheduled 1968-02-27 COVID-19 Vaccine (1) [facility] Test 00:00:00 [code = COVID-19 Vaccine (1)] Future Scheduled 1968-02-27 COVID-19 Vaccine (1) [facility] Test 00:00:00 [code = COVID-19 Vaccine (1)] Future Scheduled 1965 COVID-19 Vaccine (#1) [facility] Test 00:00:00 [code = COVID-19 Vaccine (#1)] Future Scheduled 1965 Fluoride Varnish [code [facility] Test 00:00:00 = Fluoride Varnish] Future Scheduled IMM Influenza Seasonal [facility] Test May to October (>/= 19 yrs) [code = IMM Influenza Seasonal May to October (>/= 19 yrs)] Future Scheduled IMM Influenza Seasonal [facility] Test May to October (>/= 19 yrs) [code = IMM Influenza Seasonal Oct to October (>/= 19 yrs)] Future Scheduled IMM Influenza Seasonal [facility] Test May to October (>/= 19 yrs) [code = IMM Influenza Seasonal May to October (>/= 19 yrs)] Future Scheduled Screening for [facility] ermann Test malignant neoplasm of colon (procedure) [code = 978634484] Future Scheduled Colorectal Cancer Scrn [facility] Test Annual (FIT/FOBT) Age 50 to 75 [code = Colorectal Cancer Scrn Annual (FIT/FOBT) Age 50 to 75] Future Scheduled Breast Cancer Scrn [facility] Test (Yearly) [code = Breast Cancer Scrn (Yearly)] Future Scheduled [facility] Test malignant neoplasm of cervix (procedure) [code = 768592887] Future Scheduled [facility] Test malignant neoplasm of cervix (procedure) [code = 461281356] Future Scheduled Cervical Cancer Scrn [facility] Test (3 Yrs) [code = Cervical Cancer Scrn (3 Yrs)] Future Scheduled COVID-19 Vaccine (1) [facility] Test [code = COVID-19 Vaccine (1)] Encounters Start End Encounter Admission Attending Care Care Encounter Source Date/Time Date/Time Type Type Clinicians Facility Department ID 2022-06-06 2022-06-06 Outpatient R [facility] [id number] Univers 13:00:00 13:00:00 SUSHIL CARVAJAL 22 [id number] ity [facility] 2021-12-08 2021-12-08 Case Millie [facility] [id number] Univers 00:00:00 00:00:00 Management Sushil SESAY 350.1.13.10 [id number] [address] [place] 2021-12-07 2021-12-07 Manager Nursing Home 2, Adc Lab [facility] 1.2.840.114 [id number] Univers 11:15:00 11:30:00 Visit Eddie Austin 350.1.13.10 [place] [id number] [place] [address] 2021-12-07 2021-12-07 Outpatient R [facility] [id number] Univers 11:15:00 11:15:00 [id number] ity [facility] 2021-12-07 2021-12-07 Outpatient R EDDIE AUSTIN [facility] [id number] [facility] 11:15:00 11:15:00 ity of [facility] 2021-11-30 2021-11-30 Office Sushil Carvajal [facility] 1.2. 840.114 [id number] [facility] 09:00:00 10:42:48 Visit Eddie Austin 350.1.13.10 ity of [facility] 4.2.7.2.686 [facility] [id number] [place] [address] Branch 2021 2021-02-27 [facility] [id number] [facility] 15:47:00 11:36:00 [facility] 01 [facility] [place] 2021-02-25 2021-02-25 Outpatient BRENDA Antunez LABO [id number] [facility] 18:45:00 18:45:00 Jaiden 73 [facility] 2020-12-28 2020-12-28 Outpatient MHIE MHIE [id number] [facility] 15:45:00 15:45:00 00 l [facility] 2020-12-28 2020-12-28 Outpatient MHIE MHIE [id number] [facility] 15:45:00 15:45:00 00 l [facility] 2020-07-02 2020-07-02 Emergency [facility] 1.2.651.157 [id number] 14:38:00 16:16:00 Elier Chris 350.1.13.10 [place] 4.2.7.2.686 [place] [address] [id number] 2020-04-29 2020-04-29 Emergency [facility] 1.2.660.773 [id number] 12:18:00 15:08:00 Eddie Chris 350.1.13.10 [place] 4.2.7.2.686 [place] [address] [id number] 2020-03-17 2020-03-17 Emergency [place] [id number] 1737 11:37:56 13:51:00 Elier Chris 350.1.13.10 [place] 4.2.7.2.686 [place] [address] [id number] 2020-03-17 2020-03-17 Orders Doctor LUCIANO 1.2.840.114 [id number] 00:00:00 00:00:00 Only Unassigned, JUANCARLOS 350.1.13.10 [place] [facility] 4.2.7.2.686 [id number] 2018-12-10 2018-12-10 Office nullFlavo Family [id number] Memoria 21:03:58 22:56:31 Visit r Practice l Katharine Andrews Same Day 2018-12-10 2018-12-10 Emergency nullFlavo Emergency [id number] Mem[facility] 16:20:39 17:56:00 r Center l (6520) DEBBIEJ Alice 2018-12-10 2018-12-10 Outpatient [facility] [id number] [place] 16:03:58 16:03:58 [facility] 2018-12-10 2018-12-10 Emergency [facility] [id number] Magdiel 11:20:39 11:20:39 [facility] 2017-09-01 2017-09-01 Emergency [facility] [id number] Veloz 10:29:00 10:29:00 [facility] 2015-02-04 2015-02-05 Outpt Diag nullFlavo [facility] [id number] Memoria 13:00:00 04:59:00 Services r Outpatient 00 l Imaging Nghia Morin 2015-02-04 2015-02-05 Outpt Diag nullFlavo [facility] [id number] Memoria 13:00:00 04:59:00 Services r Outpatient 00 l Imaging [facility]ia Morin 2015-02-04 2015-02-04 Outpatient Ashish 2.16.840. 2.16.840.1. [id number] 08:00:00 23:59:00 Julian Zheng 1.473921. 142813.3.61 00 3.615.0.1 5.0.056 73 7940-05-11 2015-01-06 Outpatient [facility] [id number] Memoria 15:04:00 04:59:00 r Nghia 31 [facility] 2015-01-05 2015-01-06 Outpatient [facility] [id number] Memoria 15:04:00 04:59:00 r [place]gh[place] 31 [facility] 2015-01-05 2015-01-05 Outpatient Silvano-Fu 2.16.840. 2.16.840. 1. [id number] 10:04:00 23:59:00 entmya, 1.587044. 859730.3.61 31 Julita Sales 3.615.0.1 5.0.447 12 6825-09-23 2014-05-20 Bedded [facility] [id number] Mem[facility] 11:14:00 19:30:00 Outpatient r [facility] 00 [facility] 2014-05-20 2014-05-20 Bedded [facility] [id number] Memoria 11:14:00 19:30:00 Outpatient r [facility] 00 [facility] 2014-05-20 2014-05-20 Outpatient Francis, 2.16.840. 2.16.840.1. [id number] 06:14:00 14:30:00 Larry A 1.857080. 758475.3.61 00 3.615.0.1 5.0.805 51 4666-05-05 2014-01-03 Inpatient [facility] [id number] Memoria 07:50:00 03:00:[address] 2013-12-30 2014-01-03 Inpatient [facility] [id number] Memoria 07:50:00 03:00:[address] 2013-12-30 2014-01-02 Outpatient Terminella, 2.16.840. 2.16.840. 1. [id number] 02:50:00 22:00:00 Rivera 1.046491. 307462.3.61 25 3.615.0.1 5.0.101 01 Results Test Description [...] ALKP) 88 Unit/L 45-117 N GLUCOSE BEDSIDE [id number] 19:48:00 Test Item Value Reference Range Interpretation Comments GLUCOSE BEDSIDE TESTING (test code = 98 mg/dL 70-110 N GLUBED) - XR SMALL [id number] 19:38:00 [facility] 1965 Sex: F Name: RO MAYNARD [facility] : 1965 Age/S: 56 / F [id number] Unit #: [id number] Loc: [place] [address] Phys: Dawson Ramírez MD Acct: [id number] Dis Date: Status: ADM IN PHONE #:[phone] Exam Date: 02/26/20211899 FAX #: Reason: evaluate for Crohn's EXAMS: CPT: [id number] XR SMALL BOWEL 85030 Fluoro Time: 0 DAP (Gy m2): Air Kerma (mGy): Location of dictation: H 14 Small bowel follow-through: HISTORY: Right upper quadrant pain, evaluate for Crohn's disease. COMMENT: The package lift operator radiograph shows normal bowel gas pattern. No radiopaque densities noted. Linear opacity left lung base likely atelectasis or scarring. Kyphoplasty L2 with mild dextroscoliosis of the lumbar spine.Sequential images were obtained after oral administration of contrast. Transit time to the colon wasbetween 1 and 2 hours. Small bowel loops including the terminal ileum demonstrate normal mucosal pattern. There is no evidence for obstruction. No intrinsic or extrinsic abnormality seen. The right colon also appears unremarkable. IMPRESSION: 1. No evidence for bowel obstruction. 2. Normal appearanceof small bowel with no evidence to suggest Crohn's disease. at 1938 Reported and signed by: Guera Moore M.D. CC: Jaiden Antunez MD; Kamari Escalante MD; Dawson Ramírez MD PAGE 1 Signed Report Name: RO MAYNARD [place] : 1965 Age/S: 56 / F [id number] [facility] Unit #: [id number] Loc: [place] [address] Phys: Uriel Ramírez MD Acct: [id number] Dis Date: Status: ADM IN PHONE #: [phone] Exam Date: 02/26/20211899 FAX #: Reason: evaluate for Crohn's EXAMS: CPT: [id number] XR SMALL BOWEL 03192 Fluoro Time: 0 DAP (Gym2): Air Kerma (mGy): (Continued) Technologist: Zainab Moran, RT(R)(CT)(MRI) Trnscb Date/Time: 2021 (1937) NealR.PXC Orig Print D/T: S: 2021 (1941) PAGE 2 Signed ReportGLUCOSE BEDSIDE [id number] 17:05:00 Test Item Value Reference Range Interpretation Comments GLUCOSE BEDSIDE TESTING (test code 148 mg/dL 70-110 H = GLUBED) - HEPA IMAG INCL GB W [id number] 16:10:00 [facility] 1965 Sex: F FAX: Jaiden Huff MD [phone] Camps: PM St: ADM FAX: Kamari Scott MD [phone] FAX: Dawson Hodge MD [phone] Name: RO MAYNARD [facility] : 1965 Age/S: 56/F [address] Unit #: [id number] Loc: [address] [address] Phys: Dawson Ramírez MD Acct: [id number] Dis Date: Status: ADM IN PHONE #: [phone] Exam Date: 2021 1553 FAX #: Reason: RUQ pain EXAMS: CPT: [id number] HEPA IMAG INCL GB W PHA 77290 EXAMINATION: Nuclear medicine hepatobiliary scan with ejection fraction determination INDICATION: RUQ pain COMPARISON: MRCP [...] Technologist: MANUEL Kevin Transcribed Date/Time/By: 2021 (1610) :[email or web address].PE1 Orig Print D/T: S: 2021 (4577) PAGE 1 Signed ReportGLUCOSE BEDSIDE [id number] 11:56:00 Test Item Value Reference Range Interpretation Comments GLUCOSE BEDSIDE TESTING (test code 131 mg/dL 70-110 H = GLUBED) CBC W/AUTO [id number] 06:20:00 Test Item Value Reference Range Interpretation [...] DIFF REQUIRED NO DIFF/SCN CRITERIA SLIDE R EVIEW (test code = MDIFF) CONSISTA NT WITH AUTO DIFFERENTI AL. COMPREHENSIVE METABOLIC [id number] 04:48:00 Test Item Value Reference Range Interpretation [...] 45-117 N TOTAL (test code = ALKP) [id number] 04:48:00 Test Item Value Reference Range Interpretation Comments PHOSPHOROUS (test code = PHOS) 3.8 MG/DL 2.5-4.9 N [id number] 04:48:00 Test Item Value Reference Range Interpretation Comments MAGNESIUM (test code = MAG) 2.1 MG/DL 1.8-2.4 N COMPREHENSIVE METABOLIC [id number] 04:46:00 Test Item Value Reference Range Interpretation [...] TOTAL (test Unit/L 45-117 code = ALKP) [id number] 04:46:00 Test Item Value Reference Range Interpretation Comments PHOSPHOROUS (test code = PHOS) MG/DL 2.5-4.9 [id number] 04:46:00 Test Item Value Reference Range Interpretation Comments MAGNESIUM (test code = MAG) MG/DL 1.8-2.4 [id number] 04:46:00 Test Item Value Reference Range Interpretation [...] may dexter yby method. Completed by Nursing: [id number] 04:46:00 Test Item Value Reference Range Interpretation Comments ALCOHOL (test code = ALC) < 3 MG/DL 0-10 N Completed by Nursing: NOCBC W/AUTO [id number] 04:36:00 Test Item Value Reference Range Interpretation [...] DIFF/SCN CRITERIA MDIFF) DRUGS OF ABUSE SCREEN [id number] 21:43:00 Test Item Value Reference Range Interpretation [...] [Auto mated code = AMPHETURN) SCcutoff message] [facility] system which generated this result transmit ulysses reference range : <1000 NG/ML. e reference range was not used to interpret this result as normal/abnormal . URN BARBITURATE (test NEGATIVE See_Comment [Auto mated code = BARBITURN) SCcutoff message] T system which generated this [...] [Automate d code = OPIATURN) SCcutoff message] [facility] system which generated this result transmit ulysses [...] [Automa ulysses code = METHAURN) SCcutoff message] [facility] system which generated this result transmit ulysses reference range : <300 NG/ML. The reference range was not used to interpret this result as normal/abnormal . 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 Right upper quadrant pain COMPARISON:None available TECHNIQUE: Coronal SSFSE, axial 2-D fiesta, [...] or side branch ectasia. No evidence of ascites. No bowel obstruction. IMPRESSION: 1. No evidenceof cholelithiasis or cholecystitis. 2. No evidence of choledocholithiasis. No biliary dilatation. at 1905 Reported and signed by: Sandi Redding MD CC: Jaiden Antunez MD; Kamari Escalante MD Technologist: Renee Mills, RT(R)(CT) Transcribed Date/Time/By: 02/25/2021 (1904) :[email or web address] Orig Print D/T: S: 02/25/2021 (1907) PAGE 1 Signed Report COVID 19 INHOUSE [id number] 16:22:00 Test Item Value Reference Range Interpretation Comments COVID 19 INHOUSE AG NEGATIVE Negative Per manu facturer, (test code = negative result s should [id number]) be treated aspr esumptive and, if inconsi stent with clinical signs andsymptoms or necessary for patient man agement, should betested with an alternative mol ecular assay. Negative resultsdo not preclude SA RS-CoV-2 infection and s hould not be usedas the s ole basis for patient man agement decisions. Nega tive results should be considered in t he context of apatient's r ecent exposures, hist ory, presence of cli nicalsigns and symptoms co nsistent with COVID-19. CBC W/AUTO [id number] 15:38:00 Test Item Value Reference Range Interpretation [...] DIFF REQUIRED NO DIFF/SCN CRITERIA SLIDE R EVIEW (test code = MDIFF) CONSISTA NT WITH AUTO DIFFERENTIAL.NO PLT CLUMPS OBSERVED RBC [id number] 15:38:00 Test Item Value Reference Range Interpretation Comments PLATELET ESTIMATE (test ADEQUATE THOUSAND ADEQUATE code = PLTEST) PLATELET MORPHOLOGY (test NORMAL code = PLTMORPH) CBC W/AUTO [id number] 15:33:00 Test Item Value Reference Range Interpretation [...] code DIFF/SCN CRITERIA = MDIFF) CBC W/AUTO [id number] 15:33:00 Test Item Value Reference Range Interpretation [...] code DIFF/SCN CRITERIA = MDIFF) BASIC METABOLIC [id number] 14:26:00 Test Item Value Reference Range Interpretation [...] CA) 8.7 MG/DL 8.5-10.1 N HEPATIC FUNCTION [id number] 14:26:00 Test Item Value Reference Range Interpretation [...] 93 Unit/L 45-117 N code = ALKP) [id number] 14:26:00 Test Item Value Reference Range Interpretation Comments LIPASE (test code = LIP) 95 Unit/L 114-286 L UA RFLX MICR CULT IF [id number] 14:10:00 Test Item Value Reference Range Interpretation [...] RiskForSepsis-no oth srcUA RFLX MICR CULT IF INDICATED 2021-02-25 14:10:00 Test Item Value Reference Range Interpretation [...] = UACULT) Indication for culture: RiskForSepsis-no oth srcCBC W/AUTO [id number] 14:04:00 Test Item Value Reference Range Interpretation [...] REQUIRED (test code = DIFF/SCN CRITERIA MDIFF) [id number] 14:26:00 Test Item Value Reference Range Interpretation Comments Hgb (test code = Hgb) 13.3 12.0-16.0 [facility] [id number] 14:26:00 Test Item Value Reference Range Interpretation Comments Hct (test code = Hct) 37.9 36.0-48.0 [facility] [id number] 14:26:00 Test Item Value Reference Range Interpretation Comments RBC (test code = RBC) 3.73 4.20-5.40 [facility] [id number] 14:26:00 Test Item Value Reference Range Interpretation Comments WBC (test code = WBC) 6.1 3.7-10.4 [facility] [id number] 14:26:00 Test Item Value Reference Range Interpretation Comments MPV (test code = MPV) 8.0 7.4-10.4 [facility] [id number] 14:26:00 Test Item Value Reference Range Interpretation Comments RDW (test code = RDW) 17.2 11.5-14.5 [facility] [id number] 14:26:00 Test Item Value Reference Range Interpretation Comments Platelet (test code = Platelet) 223 133-450 [facility] [id number] 14:26:00 Test Item Value Reference Range Interpretation Comments MCHC (test code = MCHC) 35.0 32.0-36.0 [facility] [id number] 14:26:00 Test Item Value Reference Range Interpretation Comments INR (test code = INR) 0.93 0.85-1.17 [facility] [id number] 14:26:00 Test Item Value Reference Range Interpretation Comments PT (test code = PT) 12.4 s 12.0-14.7 [facility] [facility] [id number] 14:26:00 Test Item Value Reference Range Interpretation Comments BUN (test code = BUN) 8 7-22 [facility]2014-09-22 14:26:00 Test Item Value Reference Range Interpretation Comments Glucose Lvl (test code = Glucose Lvl) 91 70-99 [facility]2014-09-22 14:26:00 Test Item Value Reference Range Interpretation Comments CO2 (test code = CO2) 29 24-32 [facility]2014-09-22 14:26:00 Test Item Value Reference Range Interpretation Comments AGAP (test code = AGAP) 6.7 10.0-20.0 [facility]2014-09-22 14:26:00 Test Item Value Reference Range Interpretation Comments eGFR (test code = eGFR) 86 [facility]2014-09-22 14:26:00 Test Item Value Reference Range Interpretation Comments Creatinine Lvl (test code = Creatinine 0.8 0.5-1.4 Lvl) [facility]2014-09-22 14:26:00 Test Item Value Reference Range Interpretation Comments Chloride Lvl (test code = Chloride Lvl) 104 95-109 [facility]2014-09-22 14:26:00 Test Item Value Reference Range Interpretation Comments Potassium Lvl (test code = Potassium 3.7 3.5-5.1 Lvl) [facility]2014-09-22 14:26:00 Test Item Value Reference Range Interpretation Comments Sodium Lvl (test code = Sodium Lvl) 136 135-145 [facility]2014-09-22 14:26:00 Test Item Value Reference Range Interpretation Comments Calcium Lvl (test code = Calcium Lvl) 9.7 8.5-10.5 [facility] HospitalNetcmjtORYQSONTIX6659-19-91 14:26:00 Test Item Value Reference Range Interpretation Comments MCV (test code = MCV) 101.6 80.0-98.0 [facility] HospitalGgnayfdXEVWSGCETI5281-06-64 14:26:00 Test Item Value Reference Range Interpretation Comments MCH (test code = MCH) 35.5 pg 27.0-31.0 [facility] HospitalBtkcgswQAGNVISLHB6959-35-61 14:26:00 Test Item Value Reference Range Interpretation Comments Hgb (test code = Hgb) 13.3 12.0-16.0 [facility] HospitalYocokeiUGNOWPWGBH1316-99-44 14:26:00 Test Item Value Reference Range Interpretation Comments Hct (test code = Hct) 37.9 36.0-48.0 [facility] HospitalQbxakalPCAGVPZWDE8525-84-85 14:26:00 Test Item Value Reference Range Interpretation Comments RBC (test code = RBC) 3.73 4.20-5.40 [facility] HospitalBugxivbDGNXPPFQBV4029-57-96 14:26:00 Test Item Value Reference Range Interpretation Comments WBC (test code = WBC) 6.1 3.7-10.4 [facility] HospitalIorlnzqMLMGNQTSDW8919-89-88 14:26:00 Test Item Value Reference Range Interpretation Comments MPV (test code = MPV) 8.0 7.4-10.4 [facility] HospitalVnqltqqVYPWBDYHLH7067-21-64 14:26:00 Test Item Value Reference Range Interpretation Comments RDW (test code = RDW) 17.2 11.5-14.5 [facility] HospitalUuafifkICIEUWRVXK2812-43-38 14:26:00 Test Item Value Reference Range Interpretation Comments Platelet (test code = Platelet) 223 133-450 [facility] HospitalXrchnlyVASWXOKZPQ9204-57-21 14:26:00 Test Item Value Reference Range Interpretation Comments MCHC (test code = MCHC) 35.0 32.0-36.0 [facility] HospitalOsvotcmFAHMUWQAZJ8591-04-78 14:26:00 Test Item Value Reference Range Interpretation Comments INR (test code = INR) 0.93 0.85-1.17 [facility] HospitalNsfguptSYRNWIFYXD2883-17-71 14:26:00 Test Item Value Reference Range Interpretation Comments PT (test code = PT) 12.4 s 12.0-14.7 [facility]2014-09-22 14:26:00 Test Item Value Reference Range Interpretation Comments BUN (test code = BUN) 8 7-22 [facility]2014-09-22 14:26:00 Test Item Value Reference Range Interpretation Comments Glucose Lvl (test code = Glucose Lvl) 91 70-99 [facility]2014-09-22 14:26:00 Test Item Value Reference Range Interpretation Comments CO2 (test code = CO2) 29 24-32 [facility]2014-09-22 14:26:00 Test Item Value Reference Range Interpretation Comments AGAP (test code = AGAP) 6.7 10.0-20.0 [facility]2014-09-22 14:26:00 Test Item Value Reference Range Interpretation Comments eGFR (test code = eGFR) 86 [facility]2014-09-22 14:26:00 Test Item Value Reference Range Interpretation Comments Creatinine Lvl (test code = Creatinine 0.8 0.5-1.4 Lvl) [facility]2014-09-22 14:26:00 Test Item Value Reference Range Interpretation Comments Chloride Lvl (test code = Chloride Lvl) 104 95-109 [facility]2014-09-22 14:26:00 Test Item Value Reference Range Interpretation Comments Potassium Lvl (test code = Potassium 3.7 3.5-5.1 Lvl) [facility]2014-09-22 14:26:00 Test Item Value Reference Range Interpretation Comments Sodium Lvl (test code = Sodium Lvl) 136 135-145 [facility]2014-09-22 14:26:00 Test Item Value Reference Range Interpretation Comments Calcium Lvl (test code = Calcium Lvl) 9.7 8.5-10.5 [facility] HospitalWcemljsMDSDVFQJRZ1998-28-83 14:26:00 Test Item Value Reference Range Interpretation Comments MCV (test code = MCV) 101.6 80.0-98.0 [facility] HospitalGpcbqykFVIDBGISZI9048-34-38 14:26:00 Test Item Value Reference Range Interpretation Comments MCH (test code = MCH) 35.5 pg 27.0-31.0 [facility]2014-05-07 09:42:00 Test Item Value Reference Range Interpretation Comments Magnesium Lvl (test code = Magnesium 2.0 1.8-2.4 Lvl) [facility]2014-05-07 09:42:00 Test Item Value Reference Range Interpretation Comments eGFR (test code = eGFR) 113 [facility]2014-05-07 09:42:00 Test Item Value Reference Range Interpretation Comments BUN (test code = BUN) 4 7-22 [facility]2014-05-07 09:42:00 Test Item Value Reference Range Interpretation Comments Potassium Lvl (test code = Potassium 3.8 3.5-5.1 Lvl) [facility]2014-05-07 09:42:00 Test Item Value Reference Range Interpretation Comments Creatinine Lvl (test code = Creatinine 0.5 0.5-1.4 Lvl) [facility]2014-05-07 09:42:00 Test Item Value Reference Range Interpretation Comments Glucose Lvl (test code = Glucose Lvl) 94 70-99 [facility]2014-05-07 09:42:00 Test Item Value Reference Range Interpretation Comments Sodium Lvl (test code = Sodium Lvl) 142 135-145 [facility]2014-05-07 09:42:00 Test Item Value Reference Range Interpretation Comments Calcium Lvl (test code = Calcium Lvl) 8.7 8.5-10.5 [place]804-05-07 09:42:00 Test Item Value Reference Range Interpretation Comments Chloride Lvl (test code = Chloride Lvl) 105 95-109 [facility]2014-05-07 09:42:00 Test Item Value Reference Range Interpretation Comments CO2 (test code = CO2) 30 24-32 [place] 636804-05-07 09:42:00 Test Item Value Reference Range Interpretation Comments AGAP (test code = AGAP) 10.8 10.0-20.0 [place] [address]-05-07 09:42:00 Test Item Value Reference Range Interpretation Comments WBC (test code = WBC) 4.4 3.7-10.4 [facility] HospitalLlmsamwDLGIENINHR3712-26-58 09:42:00 Test Item Value Reference Range Interpretation Comments RBC (test code = RBC) 3.80 4.20-5.40 [facility] HospitalGijnpsvSRCNDLPVXY9658-98-83 09:42:00 Test Item Value Reference Range Interpretation Comments MCH (test code = MCH) 31.1 pg 27.0-31.0 [place] 789314-05-07 09:42:00 Test Item Value Reference Range Interpretation Comments Hgb (test code = Hgb) 11.8 12.0-16.0 [facility] HospitalByefhqoFQTINURZNM9368-99-11 09:42:00 Test Item Value Reference Range Interpretation Comments Hct (test code = Hct) 34.5 36.0-48.0 [facility] HospitalMrsfemzHHPCCUBFDU1687-57-10 09:42:00 Test Item Value Reference Range Interpretation Comments MCV (test code = MCV) 90.6 81.0-99.0 [place] [address]-05-07 09:42:00 Test Item Value Reference Range Interpretation Comments RDW (test code = RDW) 16.3 11.5-14.5 [facility] HospitalQgefqjoKVQLAACJJJ0699-87-20 09:42:00 Test Item Value Reference Range Interpretation Comments MCHC (test code = MCHC) 34.3 32.0-36.0 [facility] HospitalNkynfnaXAQJEFSZUV4260-70-82 09:42:00 Test Item Value Reference Range Interpretation Comments Platelet (test code = Platelet) 167 133-450 [facility] HospitalRlrkfslRSSKBZXRIZ2385-83-62 09:42:00 Test Item Value Reference Range Interpretation Comments MPV (test code = MPV) 7.9 7.4-10.4 [facility] HospitalFxatapwHGGIVIXEWJ5836-42-88 09:42:00 Test Item Value Reference Range Interpretation Comments Eosinophils (test code = 1.6 See_Comment [A utomated message] The Eosinophils) system which ge nerated this result tra nsmitted reference range : <=4.0. The reference r jamaica was not used to int erpret this result as normal/abnormal . [facility] HospitalVjetrvnOROVQHLJCQ5352-29-59 09:42:00 Test Item Value Reference Range Interpretation Comments Basophils (test code = 0.2 See_Comment [Aut omated message] The Basophils) system which ge nerated this result tra nsmitted reference range : <=1.0. The reference r jamaica was not used to int erpret this result as normal/abnormal . [facility] HospitalKmcipvlLVXVYBDBXS5543-68-50 09:42:00 Test Item Value Reference Range Interpretation Comments Segs-Bands # (test code = Segs-Bands #) 2.6 1.5-8.1 [facility] HospitalZxaeqyuQQWDGLRAJX1632-55-19 09:42:00 Test Item Value Reference Range Interpretation Comments Monocytes (test code = Monocytes) 7.4 2.0-12.0 [facility] HospitalJmwjiuvKLSGWKXUOQ9056-90-28 09:42:00 Test Item Value Reference Range Interpretation Comments Lymphocytes # (test code = Lymphocytes 1.3 1.0-5.5 #) [facility] HospitalIxyyubiGNFUXNULAI8887-69-31 09:42:00 Test Item Value Reference Range Interpretation Comments Monocytes # (test code 0.3 See_Comment [Aut omated message] The = Monocytes #) system which generated this result tra nsmitted reference range : <=0.8. The reference r jamaica was not used to int erpret this result as normal/abnormal . [facility] HospitalHlcwsoeFAZTSCPLAS6594-83-61 09:42:00 Test Item Value Reference Range Interpretation Comments Eosinophils # (test code 0.1 See_Comment [A utomated message] The = Eosinophils #) system whic h generated this result tra nsmitted reference range : <=0.5. The reference r jamaica was not used to int erpret this result as normal/abnormal . [facility] HospitalUtzdclyKUKMZAKXLK5781-05-09 09:42:00 Test Item Value Reference Range Interpretation Comments Basophils # (test code 0.0 See_Comment [Aut omated message] The = Basophils #) system which generated this result tra nsmitted reference range : <=0.2. The reference r jamaica was not used to int erpret this result as normal/abnormal . [facility] HospitalIofntsmQWMIYEPWSG0487-04-98 09:42:00 Test Item Value Reference Range Interpretation Comments Lymphocytes (test code = Lymphocytes) 30.7 20.0-40.0 [facility] HospitalDfnaddxADZBZBPOIA6303-52-97 09:42:00 Test Item Value Reference Range Interpretation Comments Segs (test code = Segs) 60.1 45.0-75.0 [facility] HospitalWceiyasRPQOZYUOCQ5223-04-27 09:42:00 Test Item Value Reference Range Interpretation Comments RBC (test code = RBC) 3.80 4.20-5.40 [facility] HospitalUjpmmvtLGHEADUKBY2893-97-16 09:42:00 Test Item Value Reference Range Interpretation Comments MCH (test code = MCH) 31.1 pg 27.0-31.0 [facility] HospitalAshfthiWQNEJHPJLA7874-81-96 09:42:00 Test Item Value Reference Range Interpretation Comments Hgb (test code = Hgb) 11.8 12.0-16.0 [facility] HospitalQgnxvzcLJDDITJPHO1923-18-02 09:42:00 Test Item Value Reference Range Interpretation Comments Hct (test code = Hct) 34.5 36.0-48.0 [facility] HospitalSuvqobiDTJMMXRMLR9855-71-66 09:42:00 Test Item Value Reference Range Interpretation Comments MCV (test code = MCV) 90.6 81.0-99.0 [facility] HospitalEvmwpimKNSLBFLBUZ9437-36-50 09:42:00 Test Item Value Reference Range Interpretation Comments RDW (test code = RDW) 16.3 11.5-14.5 [facility] HospitalSxehfzpZIBMJHQQFW0634-16-27 09:42:00 Test Item Value Reference Range Interpretation Comments MCHC (test code = MCHC) 34.3 32.0-36.0 [facility] HospitalJoiodzpIXLATCPUPT3722-71-89 09:42:00 Test Item Value Reference Range Interpretation Comments Platelet (test code = Platelet) 167 133-450 [facility] HospitalRmbhsoxOAHCHUBOAU4374-37-18 09:42:00 Test Item Value Reference Range Interpretation Comments MPV (test code = MPV) 7.9 7.4-10.4 [facility] HospitalZlglhjfFJUNALPNOJ7672-95-02 09:42:00 Test Item Value Reference Range Interpretation Comments Eosinophils (test code = 1.6 See_Comment [A utomated message] The Eosinophils) system which ge nerated this result tra nsmitted reference range : <=4.0. The reference r jamaica was not used to int erpret this result as normal/abnormal . [facility] H[id number] 09:42:00 Test Item Value Reference Range Interpretation Comments Basophils (test code = 0.2 See_Comment [Aut omated message] The Basophils) system which ge nerated this result tra nsmitted reference range : <=1.0. The reference r jamaica was not used to int erpret this result as normal/abnormal . [facility] HospitalSyhssynSEJENWXNIQ7789-39-01 09:42:00 Test Item Value Reference Range Interpretation Comments Segs-Bands # (test code = Segs-Bands #) 2.6 1.5-8.1 [facility] HospitalQzuxakbUGABIBLMXD3979-49-41 09:42:00 Test Item Value Reference Range Interpretation Comments Monocytes (test code = Monocytes) 7.4 2.0-12.0 [facility] HospitalQbmzqtxCEYXXQMQFB9375-34-49 09:42:00 Test Item Value Reference Range Interpretation Comments Lymphocytes # (test code = Lymphocytes 1.3 1.0-5.5 #) [facility] HospitalCxejyxjXMKWHRVSJI9722-16-95 09:42:00 Test Item Value Reference Range Interpretation Comments Monocytes # (test code 0.3 See_Comment [Aut omated message] The = Monocytes #) system which generated this result tra nsmitted reference range : <=0.8. The reference r jamaica was not used to int erpret this result as normal/abnormal . [facility] HospitalFbgpylzCNXTUEKJXG6530-30-61 09:42:00 Test Item Value Reference Range Interpretation Comments Eosinophils # (test code 0.1 See_Comment [A utomated message] The = Eosinophils #) system whic h generated this result tra nsmitted reference range : <=0.5. The reference r jamaica was not used to int erpret this result as normal/abnormal . [facility] HospitalBcwpudfMGEFHOVMHC7578-42-77 09:42:00 Test Item Value Reference Range Interpretation Comments Basophils # (test code 0.0 See_Comment [Aut omated message] The = Basophils #) system which generated this result tra nsmitted reference range : <=0.2. The reference r jamaica was not used to int erpret this result as normal/abnormal . [facility] HospitalUiirkayNHXLQDGHQC1001-64-08 09:42:00 Test Item Value Reference Range Interpretation Comments Lymphocytes (test code = Lymphocytes) 30.7 20.0-40.0 [facility] HospitalQftvejkPHFFYESEAA8980-81-37 09:42:00 Test Item Value Reference Range Interpretation Comments Segs (test code = Segs) 60.1 45.0-75.0 [facility]2014-05-07 09:42:00 Test Item Value Reference Range Interpretation Comments Magnesium Lvl (test code = Magnesium 2.0 1.8-2.4 Lvl) [facility]2014-05-07 09:42:00 Test Item Value Reference Range Interpretation Comments eGFR (test code = eGFR) 113 [facility]2014-05-07 09:42:00 Test Item Value Reference Range Interpretation Comments BUN (test code = BUN) 4 7-22 [facility]2014-05-07 09:42:00 Test Item Value Reference Range Interpretation Comments Potassium Lvl (test code = Potassium 3.8 3.5-5.1 Lvl) [facility]2014-05-07 09:42:00 Test Item Value Reference Range Interpretation Comments Creatinine Lvl (test code = Creatinine 0.5 0.5-1.4 Lvl) [facility]2014-05-07 09:42:00 Test Item Value Reference Range Interpretation Comments Glucose Lvl (test code = Glucose Lvl) 94 70-99 [facility]2014-05-07 09:42:00 Test Item Value Reference Range Interpretation Comments Sodium Lvl (test code = Sodium Lvl) 142 135-145 [facility]2014-05-07 09:42:00 Test Item Value Reference Range Interpretation Comments Calcium Lvl (test code = Calcium Lvl) 8.7 8.5-10.5 [facility]2014-05-07 09:42:00 Test Item Value Reference Range Interpretation Comments Chloride Lvl (test code = Chloride Lvl) 105 95-109 [facility]2014-05-07 09:42:00 Test Item Value Reference Range Interpretation Comments CO2 (test code = CO2) 30 24-32 [facility]2014-05-07 09:42:00 Test Item Value Reference Range Interpretation Comments AGAP (test code = AGAP) 10.8 10.0-20.0 [facility] HospitalPnxxnzaCGNAGXDCID0479-98-38 09:42:00 Test Item Value Reference Range Interpretation Comments WBC (test code = WBC) 4.4 3.7-10.4 [facility]2014-05-05 12:13:00 Test Item Value Reference Range Interpretation Comments Magnesium Lvl (test code = Magnesium 1.8 1.8-2.4 Lvl) [facility]2014-05-05 12:13:00 Test Item Value Reference Range Interpretation Comments Phosphorus (test code = Phosphorus) 2.6 2.5-4.5 [facility]2014-05-05 12:13:00 Test Item Value Reference Range Interpretation Comments Globulin (test code = Globulin) 2.8 2.0-4.0 [facility]2014-05-05 12:13:00 Test Item Value Reference Range Interpretation Comments A/G Ratio (test code = A/G Ratio) 1.2 0.7-1.6 [facility]2014-05-05 12:13:00 Test Item Value Reference Range Interpretation Comments B/C Ratio (test code = B/C Ratio) 10 6-25 [facility]2014-05-05 12:13:00 Test Item Value Reference Range Interpretation Comments AGAP (test code = AGAP) 6.9 10.0-20.0 [facility]2014-05-05 12:13:00 Test Item Value Reference Range Interpretation Comments eGFR (test code = eGFR) 101 [facility]2014-05-05 12:13:00 Test Item Value Reference Range Interpretation Comments Glucose Lvl (test code = Glucose Lvl) 84 70-99 [facility]2014-05-05 12:13:00 Test Item Value Reference Range Interpretation Comments Potassium Lvl (test code = Potassium 3.9 3.5-5.1 Lvl) [facility]2014-05-05 12:13:00 Test Item Value Reference Range Interpretation Comments Sodium Lvl (test code = Sodium Lvl) 141 135-145 [place] 636804-05-05 12:13:00 Test Item Value Reference Range Interpretation Comments Creatinine Lvl (test code = Creatinine 0.7 0.5-1.4 Lvl) [place] 636804-05-05 12:13:00 Test Item Value Reference Range Interpretation Comments BUN (test code = BUN) 7 7-22 [place] 636804-05-05 12:13:00 Test Item Value Reference Range Interpretation Comments Bili Total (test code = Bili Total) 0.3 0.2-1.3 [place] 636804-05-05 12:13:00 Test Item Value Reference Range Interpretation Comments Alk Phos (test code = Alk Phos) 71 39-136 [facility]2014-05-05 12:13:00 Test Item Value Reference Range Interpretation Comments AST (test code = AST) 21 See_Comment [Auto mated message] The system which ge nerated this result transmit ulysses reference range : <=37. The reference range was not used to interpr et this result as vicki l/abnormal. [facility]2014-05-05 12:13:00 Test Item Value Reference Range Interpretation Comments ALT (test code = ALT) 20 See_Comment [Auto mated message] The system which ge nerated this result transmit ulysses reference range : <=65. The reference range was not used to interpr et this result as vicki l/abnormal. [place] 636804-05-05 12:13:00 Test Item Value Reference Range Interpretation Comments Total Protein (test code = Total 6.1 6.4-8.4 Protein) [facility]2014-05-05 12:13:00 Test Item Value Reference Range Interpretation Comments CO2 (test code = CO2) 33 24-32 [facility]2014-05-05 12:13:00 Test Item Value Reference Range Interpretation Comments Albumin Lvl (test code = Albumin Lvl) 3.3 3.5-5.0 [facility]2014-05-05 12:13:00 Test Item Value Reference Range Interpretation Comments Calcium Lvl (test code = Calcium Lvl) 8.4 8.5-10.5 [facility]2014-05-05 12:13:00 Test Item Value Reference Range Interpretation Comments Chloride Lvl (test code = Chloride Lvl) 105 95-109 [facility] HospitalAzvhktrGHZOCOEOAP4633-99-10 12:13:00 Test Item Value Reference Range Interpretation Comments Basophils # (test code 0.0 See_Comment [Aut omated message] The = Basophils #) system which generated this result tra nsmitted reference range : <=0.2. The reference r jamaica was not used to int erpret this result as normal/abnormal . [facility] HospitalIzyzznvJBWASEZPBA6251-64-82 12:13:00 Test Item Value Reference Range Interpretation Comments Segs (test code = Segs) 63.5 45.0-75.0 [facility] HospitalHkfvubuYJKVSUBPNQ0096-09-61 12:13:00 Test Item Value Reference Range Interpretation Comments Monocytes # (test code 0.3 See_Comment [Aut omated message] The = Monocytes #) system which generated this result tra nsmitted reference range : <=0.8. The reference r jamaica was not used to int erpret this result as normal/abnormal . [facility] HospitalOtpogleGONIIHXELT0335-96-94 12:13:00 Test Item Value Reference Range Interpretation Comments Basophils (test code = 0.2 See_Comment [Aut omated message] The Basophils) system which ge nerated this result tra nsmitted reference range : <=1.0. The reference r jamaica was not used to int erpret this result as normal/abnormal . [facility] HospitalOeqzsviLTZXOTMKVH5755-76-75 12:13:00 Test Item Value Reference Range Interpretation Comments Lymphocytes # (test code = Lymphocytes 1.5 1.0-5.5 #) [facility] HospitalPethkwjIFVPYHDMGI1775-06-14 12:13:00 Test Item Value Reference Range Interpretation Comments Segs-Bands # (test code = Segs-Bands #) 3.3 1.5-8.1 [facility] HospitalVchrlmbMRANIIWMHF2888-48-11 12:13:00 Test Item Value Reference Range Interpretation Comments Eosinophils # (test code 0.1 See_Comment [A utomated message] The = Eosinophils #) system whic h generated this result tra nsmitted reference range : <=0.5. The reference r jamaica was not used to int erpret this result as normal/abnormal . [facility] HospitalPqnjcgmEPLTTHPLYL7322-46-59 12:13:00 Test Item Value Reference Range Interpretation Comments Lymphocytes (test code = Lymphocytes) 28.9 20.0-40.0 [facility] HospitalBawbazoZLTBBTHOGW5246-83-58 12:13:00 Test Item Value Reference Range Interpretation Comments Monocytes (test code = Monocytes) 6.2 2.0-12.0 [facility] [id number] 12:13:00 Test Item Value Reference Range Interpretation Comments Eosinophils (test code = 1.2 See_Comment [A utomated message] The Eosinophils) system which ge nerated this result tra nsmitted reference range : <=4.0. The reference r jamaica was not used to int erpret this result as normal/abnormal . [facility] H[id number] 12:13:00 Test Item Value Reference Range Interpretation Comments MCHC (test code = MCHC) 34.3 32.0-36.0 [facility] Hospit[id number] 12:13:00 Test Item Value Reference Range Interpretation Comments RDW (test code = RDW) 16.5 11.5-14.5 [facility] HospitalIjjtefhOPCEZIGQYZ6869-54-12 12:13:00 Test Item Value Reference Range Interpretation Comments MCH (test code = MCH) 31.5 pg 27.0-31.0 [facility] HospitalEfehrtnTYZHGRBCJF3000-38-09 12:13:00 Test Item Value Reference Range Interpretation Comments MCV (test code = MCV) 91.9 81.0-99.0 [facility] Hospit[id number] 12:13:00 Test Item Value Reference Range Interpretation Comments Platelet (test code = Platelet) 177 133-450 [facility] Ho[id number] 12:13:00 Test Item Value Reference Range Interpretation Comments MPV (test code = MPV) 7.9 7.4-10.4 [facility] H[id number] 12:13:00 Test Item Value Reference Range Interpretation Comments RBC (test code = RBC) 3.91 4.20-5.40 [facility] HospitalM[id number] 12:13:00 Test Item Value Reference Range Interpretation Comments Hct (test code = Hct) 35.9 36.0-48.0 [facility] Hospit[id number] 12:13:00 Test Item Value Reference Range Interpretation Comments Hgb (test code = Hgb) 12.3 12.0-16.0 [facility] HospitalYsylerkOKZJADLFUR0451-02-88 12:13:00 Test Item Value Reference Range Interpretation Comments WBC (test code = WBC) 5.1 3.7-10.4 [facility]2014-05-05 12:13:00 Test Item Value Reference Range Interpretation Comments Magnesium Lvl (test code = Magnesium 1.8 1.8-2.4 Lvl) [facility]2014-05-05 12:13:00 Test Item Value Reference Range Interpretation Comments Phosphorus (test code = Phosphorus) 2.6 2.5-4.5 [facility]2014-05-05 12:13:00 Test Item Value Reference Range Interpretation Comments Globulin (test code = Globulin) 2.8 2.0-4.0 [facility]2014-05-05 12:13:00 Test Item Value Reference Range Interpretation Comments A/G Ratio (test code = A/G Ratio) 1.2 0.7-1.6 [facility]2014-05-05 12:13:00 Test Item Value Reference Range Interpretation Comments B/C Ratio (test code = B/C Ratio) 10 6-25 [facility]2014-05-05 12:13:00 Test Item Value Reference Range Interpretation Comments AGAP (test code = AGAP) 6.9 10.0-20.0 [facility]2014-05-05 12:13:00 Test Item Value Reference Range Interpretation Comments eGFR (test code = eGFR) 101 [facility]2014-05-05 12:13:00 Test Item Value Reference Range Interpretation Comments Glucose Lvl (test code = Glucose Lvl) 84 70-99 [facility]2014-05-05 12:13:00 Test Item Value Reference Range Interpretation Comments Potassium Lvl (test code = Potassium 3.9 3.5-5.1 Lvl) [facility]2014-05-05 12:13:00 Test Item Value Reference Range Interpretation Comments Sodium Lvl (test code = Sodium Lvl) 141 135-145 [facility]2014-05-05 12:13:00 Test Item Value Reference Range Interpretation Comments Creatinine Lvl (test code = Creatinine 0.7 0.5-1.4 Lvl) [facility]2014-05-05 12:13:00 Test Item Value Reference Range Interpretation Comments BUN (test code = BUN) 7 7-22 [facility]2014-05-05 12:13:00 Test Item Value Reference Range Interpretation Comments Bili Total (test code = Bili Total) 0.3 0.2-1.3 [place] [id number] 12:13:00 Test Item Value Reference Range Interpretation Comments Alk Phos (test code = Alk Phos) 71 39-136 [facility]2014-05-05 12:13:00 Test Item Value Reference Range Interpretation Comments AST (test code = AST) 21 See_Comment [Auto mated message] The system which ge nerated this result transmit ulysses reference range : <=37. The reference range was not used to interpr et this result as vicki l/abnormal. [facility]2014-05-05 12:13:00 Test Item Value Reference Range Interpretation Comments ALT (test code = ALT) 20 See_Comment [Auto mated message] The system which ge nerated this result transmit ulysses reference range : <=65. The reference range was not used to interpr et this result as vicki l/abnormal. [place] [id number] 12:13:00 Test Item Value Reference Range Interpretation Comments Total Protein (test code = Total 6.1 6.4-8.4 Protein) [facility]2014-05-05 12:13:00 Test Item Value Reference Range Interpretation Comments CO2 (test code = CO2) 33 24-32 [place] [id number] 12:13:00 Test Item Value Reference Range Interpretation Comments Albumin Lvl (test code = Albumin Lvl) 3.3 3.5-5.0 [facility]2014-05-05 12:13:00 Test Item Value Reference Range Interpretation Comments Calcium Lvl (test code = Calcium Lvl) 8.4 8.5-10.5 [facility]2014-05-05 12:13:00 Test Item Value Reference Range Interpretation Comments Chloride Lvl (test code = Chloride Lvl) 105 95-109 [facility] H[id number] 12:13:00 Test Item Value Reference Range Interpretation Comments Basophils # (test code 0.0 See_Comment [Aut omated message] The = Basophils #) system which generated this result tra nsmitted reference range : <=0.2. The reference r jamaica was not used to int erpret this result as normal/abnormal . [facility] Hospit[id number] 12:13:00 Test Item Value Reference Range Interpretation Comments Segs (test code = Segs) 63.5 45.0-75.0 [facility] HospitalY[id number] 12:13:00 Test Item Value Reference Range Interpretation Comments Monocytes # (test code 0.3 See_Comment [Aut omated message] The = Monocytes #) system which generated this result tra nsmitted reference range : <=0.8. The reference r jamaica was not used to int erpret this result as normal/abnormal . [facility] Hospit[id number] 12:13:00 Test Item Value Reference Range Interpretation Comments Basophils (test code = 0.2 See_Comment [Aut omated message] The Basophils) system which ge nerated this result tra nsmitted reference range : <=1.0. The reference r jamaica was not used to int erpret this result as normal/abnormal . [facility] HospitalZainkcoOQCELRJFFX4755-12-80 12:13:00 Test Item Value Reference Range Interpretation Comments Lymphocytes # (test code = Lymphocytes 1.5 1.0-5.5 #) [facility] H[id number] 12:13:00 Test Item Value Reference Range Interpretation Comments Segs-Bands # (test code = Segs-Bands #) 3.3 1.5-8.1 [facility] Hos[id number] 12:13:00 Test Item Value Reference Range Interpretation Comments Eosinophils # (test code 0.1 See_Comment [A utomated message] The = Eosinophils #) system whic h generated this result tra nsmitted reference range : <=0.5. The reference r jamaica was not used to int erpret this result as normal/abnormal . [facility] H[id number] 12:13:00 Test Item Value Reference Range Interpretation Comments Lymphocytes (test code = Lymphocytes) 28.9 20.0-40.0 [facility] H[id number] 12:13:00 Test Item Value Reference Range Interpretation Comments Monocytes (test code = Monocytes) 6.2 2.0-12.0 [facility] Hospit[id number] 12:13:00 Test Item Value Reference Range Interpretation Comments Eosinophils (test code = 1.2 See_Comment [A utomated message] The Eosinophils) system which ge nerated this result tra nsmitted reference range : <=4.0. The reference r jamaica was not used to int erpret this result as normal/abnormal . [facility] Hospit[id number] 12:13:00 Test Item Value Reference Range Interpretation Comments MCHC (test code = MCHC) 34.3 32.0-36.0 [facility] Hospit[id number] 12:13:00 Test Item Value Reference Range Interpretation Comments RDW (test code = RDW) 16.5 11.5-14.5 [facility] HospitalDioyuxjLJVKGTSPPS0810-31-26 12:13:00 Test Item Value Reference Range Interpretation Comments MCH (test code = MCH) 31.5 pg 27.0-31.0 [facility] HospitalDksagskSFEJQJDMHC3783-51-26 12:13:00 Test Item Value Reference Range Interpretation Comments MCV (test code = MCV) 91.9 81.0-99.0 [facility] HospitalAqxkidpKETQUPCAEZ1933-03-07 12:13:00 Test Item Value Reference Range Interpretation Comments Platelet (test code = Platelet) 177 133-450 [facility] Hospit[id number] 12:13:00 Test Item Value Reference Range Interpretation Comments MPV (test code = MPV) 7.9 7.4-10.4 [facility] Ho[id number] 12:13:00 Test Item Value Reference Range Interpretation Comments RBC (test code = RBC) 3.91 4.20-5.40 [facility] HospitalNeiqmiqWURWOOKDQJ1682-34-70 12:13:00 Test Item Value Reference Range Interpretation Comments Hct (test code = Hct) 35.9 36.0-48.0 [facility] HospitalVcrsuauAOFIEUASOO5323-02-01 12:13:00 Test Item Value Reference Range Interpretation Comments Hgb (test code = Hgb) 12.3 12.0-16.0 [facility] HospitalOyencgsXWOZQWVGTU7118-07-45 12:13:00 Test Item Value Reference Range Interpretation Comments WBC (test code = WBC) 5.1 3.7-10.4 [facility]
--- NOTE | 2022-05-12 20:15 | RAD REPORT ---
EXAM DESCRIPTION: RAD - Chest Single View - 05/12/2022 8:08 pm CLINICAL HISTORY: chest pain after chest compressions, overdose Chest pain. COMPARISON: Chest Single View dated 02/16/2021; Chest Pa And Lat (2 Views) dated 12/31/2020; Chest Pa A nd Lat (2 Views) dated 11/09/2020; Chest Single View dated 10/01/2020 FINDINGS: Portable technique limits examination quality. The lungs are mildly emphysematous but grossly clear. The heart is normal in size. No displaced fract ures.Cervical spine hardware plate noted. IMPRESSION: Mild COPD.
[2022-05-12] MEDS ORDERED: NA CHLORIDE 0.9% 1,000 ML ONE (20:48)
--- NOTE | 2022-05-12 21:59 | EDPHYS ---
Physician Documentation [facility] Name: Tita Elizabeth Age: 57 yrs Sex: Female : 1965 Arrival Date: 05/12/2022 Time: 19:45 Bed 5 Private MD: ED Physician Nicolas Tobar HPI: 05/12 19:47 This 57 yrs old Female presents to ER via Unassigned with complaints of overdose. rn 19:47 The patient presents to the emergency department after a known overdose, that was rn accidental. Associated signs and symptoms: Pertinent positives: decreased level of consciousness, Pertinent negatives: auditory hallucinations, diaphoresis, shortness of breath. Severity of symptoms: At their worst the symptoms were severe in the emergency department the symptoms have improved. It is unknown whether or not the patient has had similar symptoms in the past. The patient has not recently seen a physician. EMS reports overdose, bystanders reported heroin, but not sure, + chest compressions by bystanders without loss of pulse, EMS reports never lost pulse, given 2mg narcan for resp depression and decreased LOC, with immediate response. Patient reports "sniffed" something. Currently reports feels embarrassed from what happened, and mild chest pain, presumably from chest compressions.. Historical: - Allergies: 20:24 Sulfa (Sulfonamide Antibiotics); jb4 - Home Meds: 20:24 atorvastatin Oral 1 tab [Active]; losartan Oral [Active]; Metoprolol Tartrate Oral jb4 [Active]; - PMHx: 20:24 HTN; Arthritis; jb4 - Immunization history:: Adult Immunizations unknown. - Social history:: Smoking status: unknown Patient uses street drugs, marijuana. - Family history:: not pertinent. - Hospitalizations: : No recent hospitalization is reported. ROS: 19:47 Constitutional: Negative for fever, chills, and weight loss, Eyes: Negative for injury, rn pain, redness, and discharge, Neck: Negative for injury, pain, and swelling, Cardiovascular: Negative for palpitations, and edema, Respiratory: Negative for shortness of breath, cough, wheezing, and pleuritic chest pain, Abdomen/GI: Negative for abdominal pain, nausea, vomiting, diarrhea, and constipation, Back: Negative for injury and pain, MS/Extremity: Negative for injury and deformity, Skin: Negative for injury, rash, and discoloration, Neuro: Negative for headache, weakness, numbness, tingling, and seizure. Exam: 19:47 Constitutional: This is a well developed, well nourished patient who is awake, alert, rn tearful Head/Face: Normocephalic, atraumatic. Eyes: Pupils equal round and reactive to light, extra-ocular motions intact. ENT: dry MM Cardiovascular: Regular rate and rhythm. No pulse deficits. Respiratory: No increased work of breathing, no retractions or nasal flaring. Abdomen/GI: Soft, non-tender Skin: Warm, dry MS/ Extremity: Pulses equal, no cyanosis. Neuro: Awake and alert, GCS 15, oriented to person, place, time, and situation. Cranial nerves II-XII grossly intact. Motor strength 5/5 in all extremities. Sensory grossly intact. Cerebellar exam normal. 20:35 ECG was reviewed by the Attending Physician. rn Vital Signs: 20:23 BP 132 / 83; Pulse 82; Resp 18; Temp 97.5(TE); Pulse Ox 95% on R/A; jb4 21:00 BP 135 / 91; Pulse 85; Resp 16; Pulse Ox 100% on R/A; jb4 22:00 BP 130 / 76; Pulse 88; Resp 18 S; Pulse Ox 95% on R/A; jb4 MDM: 19:45 Patient medically screened. rn 21:56 Differential diagnosis: Ingestion/exposure to opiate/heroin. Data reviewed: vital rn signs, nurses notes, lab test result(s), EKG, radiologic studies, plain films, and as a result, I will discharge patient. Counseling: I had a detailed discussion with the patient and/or guardian regarding: the historical points, exam findings, and any diagnostic results supporting the discharge/admit diagnosis, lab results, radiology results, the need for outpatient follow up, to return to the emergency department if symptoms worsen or persist or if there are any questions or concerns that arise at home. Response to treatment: the patient's symptoms have markedly improved after treatment, the patient's symptoms have resolved after treatment, the patient's condition has returned to base line, the patient is now symptom free, and as a result, I will discharge patient. Special discussion: I discussed with the patient/guardian in detail that at this point there is no indication for admission to the hospital. It is understood, however, that if the symptoms persist or worsen the patient needs to return immediately for re-evaluation. 05/12 20:52 Order name: Glucose, Ancillary Testing; Complete Time: 21:05 EDME 05/12 19:46 Order name: XRAY Chest (1 view); Complete Time: 20:21 05/12 19:46 Order name: IV Start; Complete Time: 20:33 rn 05/12 19:46 Order name: Cardiac monitoring; Complete Time: 20:24 rn 05/12 19:46 Order name: EKG; Complete Time: 19:46 rn 05/12 19:46 Order name: O2 Sat Monitoring; Complete Time: 20:09 05/12 19:46 Order name: EKG - Nurse/Tech; Complete Time: 20:24 05/12 19:46 Order name: Glucose Level; Complete Time: 20:42 rn EC:35 Rate is 82 beats/min. Rhythm is regular. Left axis deviation noted. QRS is positive in rn lead I and negative in lead aVF. SD interval is normal. QRS interval is normal. QT interval is normal. No Q waves. T waves are Normal. No ST changes noted. Clinical impression: NSR w/ Non-specific ST/T Changes. Interpreted by me. Reviewed by me. Administered Medications: 20:42 Drug: NS 0.9% 1000 ml Route: IV; Rate: 1000 ml; Site: left antecubital; jb4 Disposition Summary: 05/12/22 21:58 Discharge Ordered Location: Home rn Problem: new rn Symptoms: have improved rn Condition: Stable rn Diagnosis - Accidental overdose of unspecified drug rn Followup: rn - With: Private Physician - When: As needed - Reason: Recheck today's complaints, Re-evaluation by your physician Discharge Instructions: - Discharge Summary Sheet rn - Opioid Overdose rn Forms: - Medication Reconciliation Form rn - Thank You Letter rn - Antibiotic graduate rn - Prescription Opioid Use rn Signatures: Dispatcher [employer] Nicolas Arreguin MD MD rn Bryson, James, RN RN jb4
--- NOTE | 2022-05-12 21:59 | ER ---
Nurse's Notes [facility] Name: Tita Elizabeth Age: 57 yrs Sex: Female : 1965 Arrival Date: 05/12/2022 Time: 19:45 Bed 5 Private MD: Diagnosis: Accidental overdose of unspecified drug Presentation: 05/12 19:50 Chief complaint: EMS states: "She was sitting there with family, stopped breathing, tw5 they thought she was chocking. Family said they started CPR. When we got there she had a pulse, agonal breathing. One of the family members mentioned heroine, so we gave her Narcan and she woke up. We had to BVM her a couple of times. She is also complaining of chest pain now, probably from the compressions.". 19:50 Method Of Arrival: EMS: [facility] tw5 19:52 Care prior to arrival: Medication(s) given: narcan 2 mg IV initiated. 18 GA, in the tw5 left forearm. 20:08 Coronavirus screen: At this time, the client does not indicate any symptoms associated jb4 with coronavirus-19. Ebola Screen: No symptoms or risks identified at this time. Risk Assessment: Do you want to hurt yourself or someone else? Patient reports no desire to harm self or others. Onset of symptoms was May 12, 2022. Transition of care: patient was not received from another setting of care. 20:08 Acuity: JAY 2 jb4 20:23 Initial Sepsis Screen: Does the patient meet any 2 criteria? No. Patient's initial jb4 sepsis screen is negative. Does the patient have a suspected source of infection? No. Patient's initial sepsis screen is negative. Historical: - Allergies: 20:24 Sulfa (Sulfonamide Antibiotics); jb4 - Home Meds: 20:24 atorvastatin Oral 1 tab [Active]; losartan Oral [Active]; Metoprolol Tartrate Oral jb4 [Active]; - PMHx: 20:24 HTN; Arthritis; jb4 - Immunization history:: Adult Immunizations unknown. - Social history:: Smoking status: unknown Patient uses street drugs, marijuana. - Family history:: not pertinent. - Hospitalizations: : No recent hospitalization is reported. Screenin:00 Abuse screen: Denies threats or abuse. Nutritional screening: No deficits noted. jb4 Tuberculosis screening: No symptoms or risk factors identified. Fall Risk None identified. Assessment: 20:00 General: Appears in no apparent distress. comfortable, Behavior is calm, cooperative, jb4 appropriate for age. Pain: Denies pain. Neuro: Level of Consciousness is awake, alert, obeys commands, Oriented to person, place, time, situation. Cardiovascular: Patient's skin is warm and dry. Respiratory: Airway is patent Respiratory effort is even, unlabored, Respiratory pattern is regular, symmetrical. GI: No signs and/or symptoms were reported involving the gastrointestinal system. : No signs and/or symptoms were reported regarding the genitourinary system. EENT: No signs and/or symptoms were reported regarding the EENT system. Derm: Skin is intact, Skin is pink, warm \\T\\ dry. Musculoskeletal: Circulation, motion, and sensation intact. Range of motion: intact in all extremities. 21:30 Reassessment: Patient appears in no apparent distress at this time. Patient and/or jb4 family updated on plan of care and expected duration. Pain level reassessed. Patient is alert, oriented x 3, equal unlabored respirations, skin warm/dry/pink. 22:30 Reassessment: Patient appears in no apparent distress at this time. Patient and/or jb4 family updated on plan of care and expected duration. Pain level reassessed. Patient is alert, oriented x 3, equal unlabored respirations, skin warm/dry/pink. Vital Signs: 20:23 BP 132 / 83; Pulse 82; Resp 18; Temp 97.5(TE); Pulse Ox 95% on R/A; jb4 21:00 BP 135 / 91; Pulse 85; Resp 16; Pulse Ox 100% on R/A; jb4 22:00 BP 130 / 76; Pulse 88; Resp 18 S; Pulse Ox 95% on R/A; jb4 ED Course: 19:45 Patient arrived in ED. tw5 19:45 Nicolas Tobar MD is Attending Physician. rn 20:00 Patient has correct armband on for positive identification. Placed in gown. Bed in low jb4 position. Call light in reach. Side rails up X 1. Client placed on continuous cardiac and pulse oximetry monitoring. NIBP monitoring applied. traffic monitor specialist on. 20:09 Triage completed. jb4 20:10 XRAY Chest (1 view) In Process Unspecified. EDMS 20:24 Arm band placed on right wrist. jb4 21:30 Harley Devries, RN is Primary Nurse. jb4 22:31 No provider procedures requiring assistance completed. IV discontinued, intact, jb4 bleeding controlled, No redness/swelling at site. Pressure dressing applied. Administered Medications: 20:42 Drug: NS 0.9% 1000 ml Route: IV; Rate: 1000 ml; Site: left antecubital; jb4 Medication: 22:00 VIS not applicable for this client. jb4 Outcome: 21:58 Discharge ordered by . rn 22:31 Discharged to home via wheelchair, with family. jb4 22:31 Condition: stable 22:31 Discharge instructions given to patient, Instructed on discharge instructions, follow up and referral plans. Demonstrated understanding of instructions, follow-up care. 22:31 Patient left the ED. jb4 Signatures: Dispatcher [employer] EDMS Nicolas Tobar MD MD rn Bryson, James, RN RN jb4 [place] tw5
--- NOTE | 2022-05-13 12:30 | EKG ---
Test Date: 2022-05-12 Test Time: 20:20:04 [employer] Hackler: MADDIE MEASUREMENT RESULTS: Intervals: Rate: 82 VA: 208 QRSD: 152 QT: 436 QTc: 509 [place]: P: 59 VA: 208 QRS: -36 T: -12 INTERPRETIVE STATEMENTS: Normal sinus rhythm Left axis deviation Right bundle branch block Abnormal ECG Compared to ECG 02/24/2021 14:05:59 Left-axis deviation now present Sinus bradycardia no longer present Electronically Signed On 05-13-22 12:28:57 CDT by Matt Vergara
[2022-05-14 07:29] VITALS: BP 130/76; O2SAT 95
== END 2022-05-12 22:31 | disposition home or self-care (01) ==
LOC: ER 19:44
DX: T50.901A Poisoning by unspecified drugs, medicaments and biological substances, accidental (unintentional), initial encounter (principal); I10 Essential (primary) hypertension
CPT/HCPCS: 93005; 82947; 71045; 99284; J7030

== ENCOUNTER 2022-10-04 09:38 | Emergency (ER) | payer OTHER ==
--- OUTSIDE RECORDS SUMMARY | 2022-10-04 09:51 | XMS REPORT | Continuity of Care Document ---
:1965 Author Organization [facility] t Address [address] [place] [address] Care Team Providers Name Role Phone SHAWNA ESCALANTE Primary Care Physician UnavailJAE Hankins Attending Clinician Unavailable SAURABH CARVAJAL Attending Clinician Unavailable SAURABH CARVAJAL Attending Clinician Unavailable aJe Lim MD Attending Clinician JEREMY ZHONG Attending Clinician Unavailable Qiana Lin Attending Clinician Unavailable JOHNNY PANTOJA Attending Clinician Unavailable Kit ALEXANDRA, Johnny Rodas Attending Clinician Paxton BOCANEGRA, Bere Attending Clinician Unavailable Harley Montesinos MD Attending Clinician Leanne Mcdonnell MD Attending Clinician LEANNE MCDONNELL Attending Clinician Unavailable 2, [facility] Attending Clinician Unavailable Eddie Austin MD Attending Clinician EDDIE AUSTIN Attending Clinician Unavailable Maya Cao MA Attending Clinician Unavailable Amanda BOCANEGRA, Fannie Woodson Attending Clinician Unavailable Only, Ang Db Test Attending Clinician Unavailable Vielka Britton MD Attending Clinician VIELKA BRITTON Attending Clinician Unavailable Doctor Unassigned, [place] Attending Clinician Unavailable Shadi Carcamo Attending Clinician Unavailable Jaiden Antunez Attending Clinician Unavailable Elier Chao DO Attending Clinician Eddie Ascencio Attending Clinician EDDIE KENDRICK Attending Clinician Unavailable MATEUS CAUSEY Attending Clinician Unavailable Julian Hinojosa Attending Clinician Julita Ernandez Attending Clinician Larry Francis Attending Clinician Rivera Condon Attending Clinician LEANNE MCDONNELL Admitting Clinician Unavailable Jaiden Antunez Admitting Clinician Unavailable Shawna Escalanet V Admitting Clinician Unavailable Julita Ernandez Admitting Clinician [phone] Rivera Condon Admitting Clinician Payers Payer Name Policy Type Policy Number Effective Date Expiration Date S ource [employer] MEDICARE [id number] 2021 ADV 00:00:00 HU[employer]NA CHOICE [id number] 2021 00:00:00 HMO - HUMANA [id number] 2021 2022 HEALTHCARE 00:00:00 00:00:00 MEDICAID SSI PENDING PENDING Problems Condition Condition Condition Status Onset Resolution Last Treating Co mments Source Name Details Category Date Date Treatment Clinician Date Chest Chest Disease Active [facility] unspecifie unspecifie 00:00: Me dical d type d type 00 Center Encounter Encounter Disease Active Uni vers for for 4-05 [place] 00 [facility] for for Branch malignant malignant neoplasm neoplasm of breast of breast STD STD Disease Active Univers exposure exposure 11-30 ity of 00:00: [place] [facility] History of History of Disease Active U nivers hepatitis hepatitis 11-30 ity of C C 00:00: [place] [facility] Crohn's Crohn's Disease Active Univers disease of disease of 11-30 it y of small small 00:00: [place] intestine intestine 00 Medi [facility] with other with other Br anch complicati [...] 11-30 it y of on on 00:00: [place] [facility] Hepatitis Hepatitis Disease Active Overview: Univers C C 08-28 [place] ity of 00:00: g of this 00 note Medical might be Branch different from the original. Patient treated Chest pain Chest pain Disease Active M ethodi of of 6-18 st uncertain uncertain 00:00: Hosp tasha etiology etiology 00 l DX: RENAL DX: RENAL Diagnosis Active 2014-05-[address] [facility] ANGIOGRAM ANGIOGRAM 05-06 13:44:00 l Active 00:00: [place] 05/06/2014 00 [facility] BOWEL BOWEL Diagnosis Active 2014-01-07 [facility] oria OBSTRUCTIO OBSTRUCTIO 12-30 21:50:00 l N N Active 00:00: [place] 12/30/2013 00 [place] 795.79 795.79 Diagnosis Active 2015-01-05 M emoria V82.2 V82.2 08-28 10:04:00 l 724.2 724.2 00:00: [place] 719.43 719.43 00 726.31 726.31 Active 08/28/2000 [facility] Hyperchole Hyperchol Problem Active 2015-02-07 Memoria sterolemia esterolemi 00:48:36 l (disorder) a Moncho n (disorder) Active Problem 02/07/2015 J CARLOS Moirn,[facility] Hypertensi Hypertens Problem Active 2015-02-07 Memoria ve zackery 00:48:36 l disorder, disorder, Herm booker systemic systemic arterial arterial (disorder) (disorder) Active Problem 02/07/2015 J CARLOS Morin,[facility] Sleep Sleep Problem Active 2015-02-07 Memor ia apnea apnea 00:48:36 l (finding) (finding) Herm booker Active Problem 02/07/2015 J CARLOS Morin,[facility] INTESTINAL INTESTINA Diagnosis Active 2014-01-07 Memoria OBSTRUCT L OBSTRUCT 21:50:00 l NOS NOS Active Moncho escamilla [facility] Crohn's Crohn's Problem Resolve 2015-02-07 Memoria disease disease d 00:48:36 l (disorder) (disorder) He rmann Resolved Problem 02/07/2015 J CARLOS Morin,[facility], [facility] Allergies, Adverse Reactions, Alerts Allergy Allergy Status Severity Reaction(s) Onset Inactive Treating Comm ents Source Name Type Date Date Clinician Sulfa Drug Active [facility] (Sulfona Allergy 9-17 [facility] mide 00:00: Medical Antibiot 00 Center ics) SULFA Allergy Active [facility] (SULFONA 9-17 [facility] MIDE 00:00: Medical ANTIBIOT 00 Center ICS) Sulfa DA Active [facility] (Sulfona 7-01 Clear mide 00:00: Winter Antibiot 00 Regiona ics) [facility] Sulfa DA Active [facility] (Sulfona 7-01 Clear mide 00:00: Winter Antibiot 00 Regiona ics) Medical Center Sulfa Propensi Active Magdiel (Sulfona ty to 4-15 Health mide adverse 00:00: Antibiot reaction 00 ics) s to drug Sulfa Propensi Active Veloz (Sulfona ty to 4-15 Health mide adverse 00:00: Antibiot reaction 00 ics) s to drug SULFA Drug Active Swelling Univers (SULFONA Class [...] sulfa sulfa Active [facility] [place] NO KNOWN Allergy Active [facility] Family History Family Member Diagnosis Comments Start Date Stop Date Source Natural father Heart disease [facility] Natural mother Hypertension [facility] Social History Social Habit Start Date Stop Date Quantity Comments Source History [facility] [employer] [facility] History of tobacco Smoker Univer sity of use [facility] Exposure to Not sure University of SARS-CoV-2 (event) [facility] Branch History [facility] 2022-05-15 2022-05-[address] [facility] Transport Med 00:00:00 00:00:[address] [facility] 2022-05-15 2022-05-[address] [facility] Housing Unable to 00:00:00 00:00:00 Medical Center Pay History [facility] 2022-05-15 2022-05-[address] [facility] Housing Places 00:00:00 00:00:00 Medical Ce nter Lived History [facility] 2022-05-15 2022-05-[address] [facility] Housing Homeless 00:00:00 00:00:00 Medical Center Last Year Cigarettes smoked 2022-05-14 2022-05-[address] [facility] current (pack per 00:00:00 00:00:00 Medical Center day) - Reported Tobacco use and 2022-05-14 2022-05-[address] [facility] kes exposure 00:00:00 00:00:00 Medical Center Alcohol intake 2018-04-13 2018-04-13 Current Buddhism 00:00:00 00:00:00 non-drinker of Hospital alcohol (finding) Social History 2013-12-30 2013-12-30 [facility] belen 13:29:20 13:29:20 Sex [birth year] [employer] 00:00:00 00:00:00 Hospital Smoking Status Start Date Stop Date Source Tobacco smoking consumption [facility] unknown Current every day smoker 2022-05-14 00:00:[address] [facility] Medications Ordered Filled Start Stop Current Ordering Indication Dosage Frequency Signature Comments Components Source Medication Medication Date Date Medication? Clinician (SIG) Name Name Rowena 2022- No 1200mg QD Take 1,[address] 1,200 mg 1-17 -17 mg by [facility] Ta12 11:55: 00:00 mouth Medical 25 :00 daily. Center omeprazole Yes 20mg QD Take [address] (PriLOSEC) 1-17 by mouth [facility] 20 MG 11:54: daily. Medical capsule 15 Center HYDROcodone Yes 1{tbl} Take [address] -acetaminop 1-17 tablet by Janine adkins (NORCO 11:52: mouth Medica l 7.5-325) 54 every 6 Center 7.5-325 mg (six) per tablet hours as needed for Pain. eszopiclone Yes 3mg Take [address] (LUNESTA) 2 -17 by mouth Luke s MG tablet 11:52: every Medical 54 night as Center needed Take immediatel y before bedtime. . carvediloL 2023- Yes 25mg Take [address] [facility] (COREG) 25 -17 09-13 tablet (25 Norma kes MG tablet 00:00: 23:59 mg total) Me dical 00 :00 by mouth 2 Center (two) times daily with breakfast and dinner. tiZANidine Yes 4mg Take [address] (ZANAFLEX) 1-15 by mouth [facility] 4 MG tablet 00:00: every Medic al 00 night as Center needed. escitalopra Yes 10mg Take 1 [facility] (LEXAPRO) 1-10 Tablet by Col lege 10 MG 00:00: mouth of tablet 00 daily. Medicin e escitalopra Yes 10mg QD Take [address] [facility] m oxalate 1-10 by mouth [facility] (LEXAPRO) 00:00: daily. Medica l 10 MG 00 Center tablet metoprolol 2022- No 50mg QD Take [address] [address] succinate 1-10 01-17 by mouth [facility] (TOPROL-XL) 00:00: 00:00 daily. Med ical 50 MG 24 hr 00 :00 Center tablet carvediloL 2021-08- Yes 12.5mg Take [address] (COREG) 09-05 tablet [facility] 12.5 MG 00:00: 23:59 (12.5 mg Medic al tablet 00 :00 total) by Center mouth 2 (two) times daily with breakfast and dinner. carvediloL 2021-08- No 12.5mg Take [address] (COREG) 09-05 tablet [facility] 12.5 MG 00:00: 00:00 (12.5 mg Medic al tablet 00 :00 total) by Center mouth 2 (two) times daily with breakfast and dinner. atorvastati 2021-08- No 40mg QD Take [address] n (LIPITOR) 0-25 10-25 by mouth Janine es 40 MG 15:46: 00:00 daily. Medical tablet 33 :00 [place] metoprolol 2021-08- No 50mg QD Take [address] succinate 0-25 10-25 by mouth [facility] (TOPROL-XL) 15:46: 00:00 daily. Med ical 50 MG 24 hr 33 :00 Center tablet losartan 2021-08- No 100mg QD Take [address] (COZAAR) 25 0-25 10-25 mg by [facility]ukes MG tablet 15:46: 00:00 mouth Medica l 33 :00 daily . [place] atorvastati 2021-08- No 40mg QD Take [address] n (LIPITOR) 0-25 10-25 by mouth Janine es 40 MG 15:46: 00:00 daily. Medical tablet 33 :00 Center metoprolol 2021-08- No 50mg QD Take [address] [facility] succinate 0-25 10-25 by mouth [facility] (TOPROL-XL) 15:46: 00:00 daily. Med ical 50 MG 24 hr 33 :00 Center tablet losartan 2021-08- No 100mg QD Take [address] (COZAAR) 25 0-25 10-25 mg by [facility]ukes MG tablet 15:46: 00:00 mouth Medica l 33 :00 daily . [place] omeprazole 2021-08 Yes 20mg QD Take [address] (PriLOSEC) 0-25 by mouth [facility] 20 MG 14:44: daily. Medical capsule 41 Center guaiFENesin 2021-08 Yes 1200mg QD Take 1,[address] 1,200 mg 0-25 mg by [facility]ukes Ta12 14:44: mouth Medical 41 daily. Center HYDROcodone 2021-08 Yes 1{tbl} Take [address] -acetaminop 0-25 tablet by Janine es hen (NORCO 14:42: mouth Medica l 7.5-325) 01 every 6 Center 7.5-325 mg (six) per tablet hours as needed for Pain. eszopiclone 2021-08 Yes 3mg Take [address] (LUNESTA) 2 0-25 by mouth Luke s MG tablet 14:42: every Medical 01 night as Center needed Take immediatel y before bedtime. . losartan 2021-08 Yes 100mg QD Take [address] (COZAAR) 25 0-25 tablets [facility] MG tablet 00:00: (100 mg Medic al 00 total) by Center mouth daily. atorvastati 2021-08 Yes 40mg QD Take [address] [facility] n (LIPITOR) 0-25 tablet (40 Norma kes 40 MG 00:00: mg total) Medical tablet 00 by mouth Center daily. losartan 2021-08 Yes 100mg QD Take [address] (COZAAR) 25 0-25 tablets [facility] MG tablet 00:00: (100 mg Medic al 00 total) by Center mouth daily. atorvastati 2021-08 Yes 40mg QD Take [address] [facility] n (LIPITOR) 0-25 tablet (40 Norma kes 40 MG 00:00: mg total) Medical tablet 00 by mouth Center daily. aspirin 81 2021-08 No 81mg QD Take [address] MG EC 0-25 10-25 tablet (81 [facility] tablet 00:00: 23:59 mg total) Medic al 00 :00 by mouth Center daily. aspirin 81 2021-08 No 81mg QD Take [address] MG EC 0-25 10-25 tablet (81 [facility] tablet 00:00: 23:59 mg total) Medic al 00 :00 by mouth Center daily. ALPRAZolam 2021-08- No .5mg Take [address] [facility] (XANAX) 0.5 0-25 11-24 tablet [facility] MG tablet 00:00: 23:59 (0.5 mg Medi yesy 00 :00 total) by Center mouth 2 (two) times daily as needed for Anxiety for up to 30 days. Max Daily Amount: 1 mg ALPRAZolam 2021-08- No .5mg Take [address] (XANAX) 0.5 0-25 11-24 tablet [facility] MG tablet 00:00: 23:59 (0.5 mg Medi yesy 00 :00 total) by Center mouth 2 (two) times daily as needed for Anxiety for up to 30 days. Max Daily Amount: 1 mg metoprolol 2021-08- No 50mg QD Take [address] succinate 0-25 11-09 tablet (50 Janine es (TOPROL-XL) 00:00: 00:00 mg total) Medical 50 MG 24 hr 00 :00 by mouth Cent er tablet daily. metoprolol 2021-08 No 50mg QD Take [address] succinate 0-25 11-09 tablet (50 Janine es (TOPROL-XL) 00:00: 00:00 mg total) Medical 50 MG 24 hr 00 :00 by mouth Cent er tablet daily. ALPRAZolam 2021- No .5mg Take [address] (XANAX) 0.5 9-19 10-25 tablet [facility] MG tablet 00:00: 00:00 (0.5 mg Medi yesy 00 :00 total) by Center mouth 3 (three) times daily as needed for Anxiety for up to 10 doses. Max Daily Amount: 1.5 mg aspirin 81 2021- No 81mg QD Take [address] MG EC 9- 10-25 tablet (81 [facility] tablet 00:00: 00:00 mg total) Medic al 00 :00 by mouth Center daily. ALPRAZolam 2021- No .5mg Take [address] (XANAX) 0.5 9-19 10-25 tablet [facility] MG tablet 00:00: 00:00 (0.5 mg Medi yesy 00 :00 total) by Center mouth 3 (three) times daily as needed for Anxiety for up to 10 doses. Max Daily Amount: 1.5 mg aspirin 81 2021- No 81mg QD Take [address] MG EC 05-16 10-25 tablet (81 [facility] tablet 00:00: 00:00 mg total) Medic al 00 :00 by mouth Center daily. ALPRAZolam 2021- No .5mg Take [address] (XANAX) 0.5 05-14 tablet [facility] MG tablet 00:00: 00:00 (0.5 mg Medi yesy 00 :00 total) by Center mouth 3 (three) times daily as needed for Anxiety for up to 9 doses. Max Daily Amount: 1.5 mg ALPRAZolam 2021- No .5mg Take [address] (XANAX) 0.5 05-14 tablet [facility] MG tablet 00:00: 00:00 (0.5 mg Medi yesy 00 :00 total) by Center mouth 3 (three) times daily as needed for Anxiety for up to 9 doses. Max Daily Amount: 1.5 mg metoprolol 2021- No 25mg Take 25 mg Univers tartrate 25 11-30-05 by mouth. it y of mg tablet 11:13: 00:00 [place] 29 :00 Medical Branch cyanocobala 2021- No 1{tbl} Take 1 U nivers min, 11-30-05 tablet by ity of vitamin 11:13: 00:00 mouth. [place] B-12, 05 :00 Medical (VITAMIN Branch B-12 ORAL) citalopram 2021- No 40mg Take 40 mg Univers 40 mg 11-30-05 by mouth. ity of tablet 11:12: 00:00 [place] 58 :00 Medical Branch MULTIVITAMI 0 Yes Take by Uni vers N ORAL 4-05 mouth. ity of 10:10: [place] 39 [facility] Branch MULTIVITAMI Yes Take by Uni vers N ORAL 4-05 mouth. ity of 10:10: [address] Branch MULTIVITAMI Yes Take by Uni vers N ORAL 4-05 mouth. ity of 10:10: [address] Branch tizanidine 2021- No 4mg Take 4 mg U nivers HCl 11-30 04-05 by mouth. ity of (TIZANIDINE 10:10: 00:00 [place] ORAL) 14 :00 Medical Branch meloxicam 2022-0 Yes 15mg Take 15 mg Un alexi 15 mg 4-05 by mouth ity of tablet 10:06: daily. [place] [address] Medical Branch MIRTAZAPINE 2022-0 Yes 15mg Take 15 mg Univers ORAL 4-05 by mouth. ity of 10:06: [place] [address] Medical Branch famotidine 2022-0 Yes 20mg Take 20 mg U nivers 20 mg 4-05 by mouth 2 ity of tablet 10:06: (two) [place] [address] times Medical daily. Branch atorvastati 2022-0 Yes 20mg Take 20 mg Univers n 20 mg 4-05 by mouth ity of tablet 10:06: at [place] [address] bedtime. Medical Branch meloxicam 2022-0 Yes 15mg Take 15 mg Un alexi 15 mg 4-05 by mouth ity of tablet 10:06: daily. [place] [address] Medical Branch MIRTAZAPINE 2022-0 Yes 15mg Take 15 mg Univers ORAL 4-05 by mouth. ity of 10:06: [place] [address] Medical Branch famotidine 2-0 Yes 20mg Take 20 mg U nivers 20 mg 4-05 by mouth 2 ity of tablet 10:06: (two) [place] [address] times Medical daily. Branch atorvastati 2-0 Yes 20mg Take 20 mg Univers n 20 mg 4-05 by mouth ity of tablet 10:06: at [place] [address] bedtime. Medical Branch meloxicam 2022-0 Yes 15mg Take 15 mg Un alexi 15 mg 4-05 by mouth ity of tablet 10:06: daily. [place] [address] Medical Branch MIRTAZAPINE 2022-0 Yes 15mg Take 15 mg Univers ORAL 4-05 by mouth. ity of 10:06: [place] [address] Medical Branch famotidine 2-0 Yes 20mg Take 20 mg U nivers 20 mg 4-05 by mouth 2 ity of tablet 10:06: (two) [place] [address] times Medical daily. Branch atorvastati 2022-0 Yes 20mg Take 20 mg Univers n 20 mg 4-05 by mouth ity of tablet 10:06: at [place] [address] bedtime. Medical Branch losartan 50 2-0 Yes 50mg Take 50 mg Univers mg tablet 4-05 by mouth ity of 09:52: daily. [place] [address] Medical Branch losartan 50 2-0 Yes 50mg Take 50 mg Univers mg tablet 4-05 by mouth ity of 09:52: daily. [place] [facility] losartan 50 2021-0 Yes 50mg Take 50 mg Univers mg tablet 4-05 by mouth ity of 09:52: daily. [place] [address] Medical Branch estradioL 2021-0 Yes [id number] 1g Insert 1 g Univers 0.01 % (0.1 4-05 into ity of mg/gram) 00:00: vagina [place] vaginal 00 weekly. Medical cream Branch estradioL 2021-0 Yes [id number] 1g Insert 1 g Univers 0.01 % (0.1 4-05 into ity of mg/gram) 00:00: vagina [place] vaginal 00 weekly. Medical cream Branch estradioL 2021-0 Yes [id number] 1g Insert 1 g Univers 0.01 % (0.1 4-05 into ity of mg/gram) 00:00: vagina [facility] 00 weekly. Medical cream Branch tiZANidine 0 Yes Univers 4 mg tablet 4-04 ity of 00:00: [place] 00 Medical Branch tiZANidine 2021-0 Yes Univers 4 mg tablet 4-04 ity of 00:00: [place] 00 Medical Branch tiZANidine 2021-0 Yes Univers 4 mg tablet 4-04 ity of 00:00: [place] 00 Medical Branch mirtazapine 2021-0 2021- No 15mg Take 15 mg Univers 15 mg - 04-05 by mouth ity of tablet 00:00: 00:00 at [place] 00 :00 bedtime. Medical Branch eszopiclone 0 Yes 3mg Take 3 mg U nivers 3 mg tablet 3-28 by mouth ity of 00:00: at [place] [address] bedtime. Medical Branch eszopiclone 0 Yes 3mg Take 3 mg U nivers 3 mg tablet 3-28 by mouth ity of 00:00: at [place] [address] bedtime. Medical Branch eszopiclone 2021-0 Yes 3mg Take 3 mg U nivers 3 mg tablet 3-28 by mouth ity of 00:00: at [place] [address] bedtime. Medical Branch methocarbam 2021-0 Yes 500mg Take 500 U nivers oL 500 mg 3-10 mg by ity of tablet 00:00: mouth 2 (two) Medical times Branch daily. HYDROcodone 2022-0 Yes 1{tbl} Take 1 Un alexi -acetaminop 3-10 tablet by ity of hen 5-325 00:00: mouth 3 [place] mg tablet 00 (three) Medical times Branch daily. methocarbam 2022-0 Yes 500mg Take 500 U nivers oL 500 mg 3-10 mg by ity of tablet 00:00: mouth 2 [place] 00 (two) Medical times Branch daily. HYDROcodone 2021-0 Yes 1{tbl} Take 1 Un alexi -acetaminop 3-10 tablet by ity of hen 5-325 00:00: mouth 3 [place] mg tablet 00 (three) Medical times Branch daily. methocarbam 2021-0 Yes 500mg Take 500 U nivers oL 500 mg 3-10 mg by ity of tablet 00:00: mouth 2 00 (two) Medical times Branch daily. HYDROcodone 2021-0 Yes 1{tbl} Take 1 Un alexi -acetaminop 3-10 tablet by ity of hen 5-325 00:00: mouth 3 [place] mg tablet 00 (three) Medical times Branch daily. methocarbam 2021-0 Yes 500mg Q.5D Take [address] oL 3-10 mg by [facility] (ROBAXIN) 00:00: mouth 2 Medic al 500 MG 00 (two) Center tablet times daily. methocarbam 2021-0 2023- No 500mg Q.5D Take [address] oL 3-10 01-17 mg by [facility] (ROBAXIN) 00:00: 00:00 mouth 2 Medi yesy 500 MG 00 :00 (two) Center tablet times daily. meloxicam 2021-0 Yes TAKE 1 Univer s 7.5 mg 1-26 TABLET BY ity of tablet 00:00: MOUTH 00 EVERY DAY Medical FOR 14 Branch DAYS meloxicam 2021-0 Yes TAKE 1 Univer s 7.5 mg 1-26 TABLET BY ity of tablet 00:00: MOUTH 00 EVERY DAY Medical FOR 14 Branch DAYS meloxicam 202-0 Yes TAKE 1 Univer s 7.5 mg 1-26 TABLET BY ity of tablet 00:00: MOUTH 00 EVERY DAY Medical FOR 14 Branch DAYS buPROPion 2021-0 Yes 150mg Take 150 Uni vers SR 150 mg 1-11 mg by ity of SR tablet 00:00: mouth 2 (two) Medical times Branch daily. buPROPion Yes 150mg Take 150 Uni vers SR 150 mg 1-11 mg by ity of SR tablet 00:00: mouth 2 [place] 00 (two) Medical times Branch daily. buPROPion Yes 150mg Take 150 Uni vers SR 150 mg 1-11 mg by ity of SR tablet 00:00: mouth 2 [place] 00 (two) Medical times Branch daily. oxybutynin 2019-08 Yes [id number] 10mg Take 1 Univers 10 mg 24 hr 1-05 tablet by ity of tablet 00:00: mouth [place] 00 daily. Medical Branch oxybutynin 2019-08 Yes [id number] 10mg Take 1 Univers 10 mg 24 hr 1-05 tablet by ity of tablet 00:00: mouth [place] 00 daily. Medical Branch oxybutynin 2019-08 Yes [id number] 10mg Take 1 Univers 10 mg 24 hr 1-05 tablet by ity of tablet 00:00: mouth [place] 00 daily. Medical Branch methylPREDN 2019-08- No [id number] Take by Univers ISolone 1-05 04-05 mouth ity of (MEDROL, 00:00: 00:00 [place]INSTRU [place]NY[place] 4 mg 00 :00 CTIONS. Medica l tablets follow Branch package directions naproxen 2019-08- No [id number] 550mg Take 1 Univers sodium 1-05 04-05 [...] Indication s: acute pain cyclobenzap 2018-08- No [id number] 5mg Take 1 Univers rine 5 mg 0-13 04-05 tablet by ity of tablet 00:00: 00:00 mouth 3 [place] 00 :00 (three) Medical times Branch daily. gabapentin Yes Chronic 300mg Take 1 H arris (NEURONTIN) 4-15 left-sided capsule by [facility] 300 mg 00:00: low back mouth 2 capsule 00 pain with times sciatica, daily as sciatica needed for laterality Pain. unspecified cyclobenzap 2019 Yes Chronic 10mg Take 1 H arris rine 4-15 left-sided tablet by [facility] (FLEXERIL) 00:00: low back mouth [...] H arris rine 4-15 left-sided tablet by [facility] (FLEXERIL) 00:00: low back mouth 2 10 mg 00 pain with times tablet sciatica, daily as sciatica needed for laterality Muscle unspecified Spasms. gabapentin Yes Chronic 300mg Take 1 H arris (NEURONTIN) 4-15 left-sided capsule by [facility] 300 mg 00:00: low back mouth 2 capsule 00 pain with times sciatica, daily as sciatica needed for laterality Pain. unspecified cyclobenzap Yes Chronic 10mg Take 1 H arris rine 4-15 left-sided tablet by [facility] (FLEXERIL) 00:00: low back mouth 2 10 mg 00 pain with times tablet sciatica, daily as sciatica needed for laterality Muscle unspecified Spasms. gabapentin Yes Chronic 300mg Take 1 H arris (NEURONTIN) 4-15 left-sided capsule by [facility] 300 mg 00:00: low back mouth 2 capsule 00 pain with times sciatica, daily as sciatica needed for laterality Pain. unspecified cyclobenzap Yes Chronic 10mg Take 1 H arris rine 4-15 left-sided tablet by [facility] (FLEXERIL) 00:00: low back mouth 2 10 mg 00 pain with times tablet sciatica, daily as sciatica needed for laterality Muscle unspecified Spasms. gabapentin Yes Chronic 300mg Take 1 H arris (NEURONTIN) 4-15 left-sided capsule by [facility] 300 mg 00:00: low back mouth 2 capsule 00 pain with times sciatica, daily as sciatica needed for laterality Pain. unspecified cyclobenzap 2019-0 Yes Chronic 10mg Take 1 H arris rine 4-15 left-sided tablet by [facility] (FLEXERIL) 00:00: low back mouth 2 10 mg 00 pain with times tablet sciatica, daily as sciatica needed for laterality Muscle unspecified Spasms. cyanocobala 2018-0 Yes 1{tbl} QD Take 1 Me thodi min, 6-[address] vitamin 18:26: mouth Hospita B-12, 50 daily. l (VITAMIN B-12 ORAL) naproxen 2018-0 Yes 440mg Q24H Take 440 Meth floyd sodium 6-[address] (ALEVE) 220 18:26: mouth Hospi ta MG tablet 50 daily as l needed for mild pain. citalopram 2017-0 Yes 40mg QD Take 40 mg M ethodi (CeleXA) 40 6-[address] MG tablet 18:26: nightly. Hosp tasha 50 l metoprolol 2018-0 Yes 25mg Q.[id number] Take 25 mg Methodi tartrate 6-19 [id number] mouth [address] (LOPRESSOR) 18:26: 3D (three) Hos viral 25 mg 50 times a l tablet day. Note: Rx label states BID but pt takes TID. metoprolol 2018-0 Yes 25mg Q.[id number] Take 25 mg Methodi tartrate 6-[id number] mouth [address] (LOPRESSOR) 18:26: 3D (three) Hos viral 25 mg 50 times a l tablet day. Note: Rx label states BID but pt takes TID. cyanocobala 2018-0 Yes 1{tbl} QD Take 1 Me thodi min, 6-[address] vitamin 18:26: mouth Hospita B-12, 50 daily. l (VITAMIN B-12 ORAL) naproxen 2018-0 Yes 440mg Q24H Take 440 Meth floyd sodium 6-[address] (ALEVE) 220 18:26: mouth Hospi ta MG tablet 50 daily as l needed for mild pain. citalopram 2018-0 Yes 40mg QD Take 40 mg M ethodi (CeleXA) 40 6-[address] MG tablet 18:26: nightly. Hosp tasha 50 l metoprolol 2018-0 Yes 25mg [id number] Take 25 mg Methodi tartrate 6-19 [id number] mouth [address] (LOPRESSOR) 18:26: 3D (three) Hos ivral 25 mg 50 times a l tablet [...] tasha 50 l Ativan No Notes: Memoria 9-23 (Same as: l 14:26: Ativan) Ativan No Notes: [facility] 9-23 (Same as: l 14:26: Ativan) Ativan No Notes: [facility] 9-23 (Same as: l 14:26: Ativan) Ativan No Notes: [facility] 9-23 (Same as: l 14:26: Ativan) Ativan No Notes: [facility] 9-23 (Same as: l 14:26: Ativan) Acetaminoph No Notes: Do M emoria en 05-20 not exceed l 13:34: 4 gm/day. [place] 00 (Same as: Tylenol) Acetaminoph No Notes: Do M emoria en 05-20 not exceed l 13:34: 4 gm/day. [place] 00 (Same as: Tylenol) Acetaminoph No Notes: Do M emoria en 05-20 not exceed l 13:34: 4 gm/day. (Same as: Tylenol) Acetaminoph No Notes: Do M emoria en 05-20 not exceed l 13:34: 4 gm/day. [place] 00 (Same as: Tylenol) Acetaminoph No Notes: Do M emoria en 05-20 not exceed l 13:34: 4 gm/day. (Same as: Tylenol) rOPINIRole Yes 1 mg = 1 Mem oria 1 mg oral 9-23 tab, PO, l tablet 12:18: Daily, 0 [place] Refill(s) Klor-Con 10 Yes 10 mEq, Mem oria 9-23 PO, Daily, l 12:18: 0 [place] 00 Refill(s) rOPINIRole Yes 1 mg = 1 Mem oria 1 mg oral 9-23 tab, PO, l tablet 12:18: Daily, 0 [place] 00 Refill(s) Klor-Con 10 Yes 10 mEq, Mem oria 9-23 PO, Daily, l 12:18: 0 [place] 00 Refill(s) rOPINIRole Yes 1 mg = 1 Mem oria 1 mg oral 9-23 tab, PO, l tablet 12:18: Daily, 0 [place] 00 Refill(s) Klor-Con 10 Yes 10 mEq, Mem oria 9-23 PO, Daily, l 12:18: 0 [place] 00 Refill(s) rOPINIRole Yes 1 mg = 1 Mem oria 1 mg oral -23 tab, PO, l tablet 12:18: Daily, 0 [place] 00 Refill(s) Klor-Con 10 Yes 10 mEq, Mem oria 9-23 PO, Daily, l 12:18: 0 [place] 00 Refill(s) rOPINIRole Yes 1 mg = 1 Mem oria 1 mg oral -23 tab, PO, l tablet 12:18: Daily, 0 [place] 00 Refill(s) Klor-Con 10 Yes 10 mEq, Mem oria 9-23 PO, Daily, l 12:18: 0 [place] 00 Refill(s) Hydrochloro Yes 1 tab, PO, Memoria thiazide - Daily, # l 12.5 MG / 03:00: 30 tab, 0 Her giles Losartan 00 Refill(s) Potassium 50 MG Oral Tablet Hydrochloro Yes 1 tab, PO, Memoria thiazide 9-23 Daily, # l 12.5 MG / 03:00: 30 tab, 0 Her giles Losartan 00 Refill(s) Potassium 50 MG Oral Tablet Hydrochloro 2013- Yes 1 tab, PO, Memoria thiazide 9-23 [...] PO, Mau agata 9-22 Daily l 14:48: aspirin 2013- Yes 81 mg, PO, Mau agata 9-22 Daily l 14:48: aspirin 2013-0 Yes 81 mg, PO, Mau agata 9-22 Daily l 14:48: aspirin 0 Yes 81 mg, PO, Mau agata 9-22 Daily l 14:48: aspirin 2013-0 Yes 81 mg, PO, Mau agata 9-22 Daily l 14:48: aripiprazol Yes 15 mg = 1 M emoria e 15 MG -22 tab, PO, l Oral Tablet 14:47: Daily Alice nn [Abilif] Clonidine Yes PO, Memoria 05-19 Bedtime l 14:47: aripiprazol Yes 15 mg = 1 M emoria e 15 MG -22 tab, PO, l Oral Tablet 14:47: Daily Alice nn [Abilif] Clonidine Yes PO, Memoria - Bedtime l 14:47: aripiprazol Yes 15 mg = 1 M emoria e 15 MG 9-22 tab, PO, l Oral Tablet 14:47: Daily Alice nn [Abilif] Clonidine Yes PO, Memoria 05-19 Bedtime l 14:47: [place] 00 aripiprazol Yes 15 mg = 1 M emoria e 15 MG 9-22 tab, PO, l Oral Tablet 14:47: Daily Alice nn [Abilify] 00 Clonidine 0 Yes PO, Memoria 05-19 Bedtime l 14:47: [place] 00 aripiprazol Yes 15 mg = 1 M emoria e 15 MG 9-22 tab, PO, l Oral Tablet 14:47: Daily Alice nn [Abilify] 00 Clonidine 0 Yes PO, Memoria 05-19 Bedtime l 14:47: [place] 00 Ibuprofen Yes 800 mg, Memor ia 9-22 PO, BID l 14:46: [place] 00 Ibuprofen Yes 800 mg, Memor ia 9-22 PO, BID l 14:46: [place] 00 Ibuprofen 0 Yes 800 mg, Memor ia 9-22 PO, BID l 14:46: [place] 00 Ibuprofen Yes 800 mg, Memor ia 9-22 PO, BID l 14:46: [place] 00 Ibuprofen 0 Yes 800 mg, Memor ia 9-22 PO, BID l 14:46: [place] 00 Miralax No Notes: Memoria 5-09 Dissolve l 14:00: in 8 oz of [place] 00 water or juice. (Same as: Miralax) Miralax No Notes: Memoria 5-09 Dissolve l 14:00: in 8 oz of [place] 00 water or juice. (Same as: Miralax) Miralax No Notes: Memoria 5-09 Dissolve l 14:00: in 8 oz of [place] 00 water or juice. (Same as: Miralax) Miralax No Notes: Memoria 5-09 Dissolve l 14:00: in 8 oz of [place] 00 water or juice. (Same as: Miralax) Miralax No Notes: Memoria 5-09 Dissolve l 14:00: in 8 oz of [place] 00 water or juice. (Same as: Miralax) Dulcolax No Notes: Mem[facility] Laxative 5-08 (Same As: l 15:24: Dulcolax, [place] 00 Bisco-Lax) Dulcolax No Notes: [facility] Laxative 5-08 (Same As: l 15:24: Dulcolax, [place] 00 Bisco-Lax) Dulcolax No Notes: [facility] Laxative 5-08 (Same As: l 15:24: Dulcolax, [place] 00 Bisco-Lax) Dulcolax No Notes: [facility] Laxative 5-08 (Same As: l 15:24: Dulcolax, [place] 00 Bisco-Lax) Dulcolax No Notes: [facility] Laxative 5-08 (Same As: l 15:24: Dulcolax, [place] 00 Bisco-Lax) Entocort EC No 9 mg, Memor ia 5-07 Route: PO, l 14:00: Drug form: [place] 00 ERCAP, Daily, Dosing Weight 71.818, kg, Start date: 01/01/14 9:00:00, Duration: 30 day, Stop date: 01/30/14 9:00:00 Budesonide No Notes: Memor ia 5-07 (Same As: l 14:00: Entocort [place] 00 EC or Budesonide 3 mg EC / ERC) "Do Not Crush" Sertraline No Notes: Memor ia 5-07 (Same as: l 14:00: Zoloft) [place] 00 Methocarbam No Notes: Mau agata ol 5-07 (Same l 14:00: as:Robaxin ) aripiprazol No Notes: Mau agata e 5-07 Non-Formul l 14:00: [facility]. (Same as: Kaylee) Entocort EC No 9 mg, Memor ia 5-07 Route: PO, l 14:00: Drug form: [place] 00 ERCAP, Daily, Dosing Weight 71.818, kg, Start date: 01/01/14 9:00:00, Duration: 30 day, Stop date: 01/30/14 9:00:00 Budesonide No Notes: Memor ia 5-07 (Same As: l 14:00: Entocort [place] 00 EC or Budesonide 3 mg EC / ERC) "Do Not Crush" Sertraline No Notes: Memor ia 5-07 (Same as: l 14:00: Zoloft) [place] Methocarbam No Notes: Mau agata ol 5-07 (Same l 14:00: as:Robaxin [place] 00 ) aripiprazol No Notes: Mau agata e [...] ia 5-07 (Same as: l 14:00: Zoloft) [place] 00 Methocarbam No Notes: Mau agata ol 5-07 (Same l 14:00: as:Robaxin ) aripiprazol No Notes: Mau agata e 5-07 Non-Formul l 14:00: [facility]. (Same as: ) Entocort EC No 9 mg, Memor ia 5-07 Route: PO, l 14:00: Drug form: [place] 00 ERCAP, Daily, Dosing Weight 71.818, kg, Start date: 01/01/14 9:00:00, Duration: 30 day, Stop date: 01/30/14 9:00:00 Budesonide No Notes: Memor ia 5-07 (Same As: l 14:00: Entocort [place] 00 EC or Budesonide 3 mg EC / ERC) "Do Not Crush" Sertraline No Notes: Memor ia 5-07 (Same as: l 14:00: Zoloft) [place] Methocarbam No Notes: Mau agata ol 5-07 (Same l 14:00: as:Robaxin ) aripiprazol No Notes: Mau agata e 5-07 Non-Formul l 14:00: [facility]. [place] 00 (Same as: Juvenal) Entocort EC No 9 [...] e 5-07 Non-Formul l 14:00: [facility]. [place] 00 (Same as: ) Protonix No Notes: Memoria 5-07 Tablet l 12:30: should not [place] 00 be chewed or crushed. (Same as: Protonix) Protonix No Notes: Memoria 5-07 Tablet l 12:30: should not [place] 00 be chewed or crushed. (Same as: Protonix) Protonix No Notes: Memoria 5-07 Tablet l 12:30: should not [place] 00 be chewed or crushed. (Same as: Protonix) Protonix No Notes: Memoria 5-07 Tablet l 12:30: should not [place] 00 be chewed or crushed. (Same as: Protonix) Protonix No Notes: Memoria 5-07 Tablet l 12:30: should not [place] 00 be chewed or crushed. (Same as: Protonix) Dicyclomine No Notes: Mau agata 5-07 (Same as: l 04:30: Bentyl) [place] Dicyclomine No Notes: Mau agata 5-07 (Same [...] MG 02:00: Desyrel) Herm booker Oral Tablet Zocor No Notes: Memoria 5-07 (Same as: l 02:00: Zocor) [place] Ditropan XL No Notes: Mau agata 5-07 (Same as: l 02:00: Ditropan [place] 00 XL) "Do Not Crush" Pamelor No Notes: Memoria 5-07 (Same l 02:00: as:Pamelor [place] 00 , Aventyl) metoprolol No Notes: Memor ia tartrate 5-07 (Same as: l 02:00: Lopressor) [place] Trazodone No Notes: Memori a Hydrochlori [...] 5-07 (Same as: l 02:00: Lopressor) [place] Trazodone No Notes: Memori a Hydrochlori 5-07 (Same As: l de 100 MG 02:00: Desyrel) Herm booker Oral Tablet 00 Zocor No Notes: Memoria 5-07 (Same as: l 02:00: Zocor) [place] Ditropan XL No Notes: Mau agata 5-07 (Same as: l 02:00: Ditropan [place] 00 XL) "Do Not Crush" Pamelor No Notes: Memoria 5-07 (Same l 02:00: as:Pamelor [place] 00 , Aventyl) metoprolol No Notes: Memor ia tartrate 5-07 (Same as: l 02:00: Lopressor) [place] Trazodone No Notes: Memori a Hydrochlori 5-07 (Same As: l de 100 MG 02:00: Desyrel) Herm booker Oral Tablet 00 Zocor No Notes: Memoria 5-07 (Same as: l 02:00: Zocor) [place] Ditropan XL No Notes: Mau agata 5-07 (Same as: l 02:00: Ditropan [place] 00 XL) "Do Not Crush" Pamelor No Notes: Memoria 5-07 (Same l 02:00: as:Pamelor [place] 00 , Aventyl) metoprolol No Notes: Memor ia tartrate 5-07 (Same as: l 02:00: Lopressor) [place] Trazodone No Notes: Memori a Hydrochlori 5-07 (Same As: l de 100 MG 02:00: Desyrel) Herm booker Oral Tablet 00 Zocor No Notes: Memoria 5-07 (Same as: l 02:00: Zocor) [place] Ditropan XL No Notes: Mau agata 5-07 (Same as: l 02:00: Ditropan [place] 00 XL) "Do Not Crush" Pamelor No Notes: Memoria 5-07 (Same l 02:00: as:Pamelor [place] 00 , Aventyl) metoprolol No Notes: Memor ia tartrate 5-07 (Same as: l 02:00: Lopressor) [place] 00 Pentasa No Notes: Memoria 5-06 (Same as: l 22:00: Pentasa) [place] Do not open capsule. "Do Not Crush" Pentasa No Notes: Memoria 5-06 (Same as: l 22:00: Pentasa) [place] 00 Do not open capsule. "Do Not Crush" Pentasa No Notes: Memoria 5-06 (Same as: l 22:00: Pentasa) [place] Do not open capsule. "Do Not Crush" Pentasa No Notes: Memoria 5-06 (Same as: l 22:00: Pentasa) [place] Do not open capsule. "Do Not Crush" Pentasa No Notes: Memoria 5-06 (Same as: l 22:00: Pentasa) [place] 00 Do not open capsule. "Do Not Crush" Ketorolac 0 No 4 days. Mau agata Tromethamin 5-06 l e 15 MG/ML 12:43: [place] Injectable 00 Solution Ketorolac 0 No 4 days. Mau agata Tromethamin 5-06 l e 15 MG/ML 12:43: [place] Injectable 00 Solution Ketorolac 2013-0 No 4 days. Mau agata Tromethamin 5-06 l e 15 MG/ML 12:43: [place] Injectable 00 Solution Ketorolac 2013-0 No 4 days. Amu agata Tromethamin 5-06 l e 15 MG/ML 12:43: [place] Injectable 00 Solution Ketorolac 2013-0 No 4 days. Mau agata Tromethamin 5-06 l e 15 MG/ML 12:43: [place] Injectable 00 Solution Nicotine No Notes: Memoria 5-05 (Same as: l 22:00: Habitrol) [place] 00 "Remove old patch before applicatio n of new patch" Nicotine No Notes: Memoria 5-05 (Same as: l 22:00: Habitrol) [place] 00 "Remove old patch before applicatio n of new patch" Nicotine No Notes: Memoria 5-05 (Same as: l 22:00: Habitrol) [place] 00 "Remove old patch before applicatio n of new patch" Nicotine No Notes: Memoria 5-05 (Same as: l 22:00: Habitrol) [place] 00 "Remove old patch before applicatio n of new patch" Nicotine No Notes: Memoria 5-05 (Same as: l 22:00: Habitrol) [place] 00 "Remove old patch before applicatio n [...] tab, PO, l tablet 11:54: Daily, # [place] 00 30 tab, 0 Refill(s) dicyclomine Yes [...] cap, PO, l Oral 11:54: Bedtime, # [place] Capsule 00 90 cap, 0 [Pamelor] Refill(s) [...] PO, l 3 MG 11:54: Daily, # [place] Extended 00 90 cap, 0 Release Refill(s) [...] 4 cap, l Extended 11:54: BID, 0 [place] Release 00 Refill(s) Capsule [Pentasa] sertraline Yes 100 mg = 1 M emoria 100 mg oral 5-05 tab, PO, l tablet 11:54: Daily, # [place] 00 30 tab, 0 Refill(s) dicyclomine Yes [...] tab, PO, l tablet 11:54: Daily, # [place] 00 30 tab, 0 Refill(s) dicyclomine Yes [...] cap, PO, l Oral 11:54: Bedtime, # [place] Capsule 00 90 cap, 0 [Pamelor] Refill(s) 24 HR Yes 10 mg = 1 Memoria Oxybutynin 5-05 tab, PO, l chloride 10 11:54: Bedtime, # [place] MG Extended 00 30 tab, 0 Release [...] 4 cap, l Extended 11:54: BID, 0 [place] Release 00 Refill(s) Capsule [Pentasa] sertraline Yes 100 mg = 1 M emoria 100 mg oral 5-05 tab, PO, l tablet 11:54: Daily, # [place] 00 30 tab, 0 Refill(s) dicyclomine Yes [...] cap, PO, l Oral 11:54: Bedtime, # [place] Capsule 00 90 cap, 0 [Pamelor] Refill(s) 24 HR Yes 10 mg = 1 Memoria Oxybutynin 5-05 tab, PO, l chloride 10 11:54: Bedtime, # [place] MG Extended 00 30 tab, 0 Release Refill(s) Tablet [Ditropan] Trazodone Yes 100 mg = 1 Me moria Hydrochlori 5-05 tab, PO, l de 100 MG 11:54: Bedtime, # He rmbooker Oral Tablet 00 90 tab, 0 Refill(s) Ranitidine Yes 300 mg = 1 M emoria 300 MG Oral 5-05 tab, PO, l Tablet 11:54: Daily, # [place] [Zantac] 00 30 tab, 0 Refill(s) Sodium Yes 0 Memoria Bicarbonate 5-05 Refill(s) l 11:54: [place] 00 methocarbam Yes 750 mg = 1 [...] PO, l 3 MG 11:54: Daily, # [place] Extended 00 90 cap, 0 Release Refill(s) [...] 4 cap, l Extended 11:54: BID, 0 [place] Release 00 Refill(s) Capsule [Pentasa] sertraline Yes [...] cap, PO, l Oral 11:54: Bedtime, # [place] Capsule 00 90 cap, 0 [Pamelor] Refill(s) 24 HR Yes 10 mg = 1 Memoria Oxybutynin 5-05 tab, PO, l chloride 10 11:54: Bedtime, # [place] MG Extended 00 30 tab, 0 Release [...] 0 Memoria Bicarbonate 5-05 Refill(s) l 11:54: [place] 00 methocarbam Yes 750 mg = 1 Memoria ol 750 mg 5-05 tab, PO, l oral tablet 11:54: Daily, # Nathan mittal 00 60 tab, 0 Refill(s) Omeprazole Yes 40 mg = 1 Me moria 40 MG 5-05 cap, PO, l Enteric 11:54: Daily, # Moncho n Coated 00 30 cap, 0 Capsule Refill(s) [Prilosec] Morphine No Notes: Memoria 5-05 (Same l 09:01: as:MORPhin [place] 00 e Sulfate) Morphine No Notes: Memoria 5-05 (Same l 09:01: as:MORPhin [place] 00 e Sulfate) Morphine No Notes: Memoria 5-05 (Same l 09:01: as:MORPhin [place] 00 e Sulfate) Morphine No Notes: Memoria 5-05 (Same l 09:01: as:MORPhin [place] 00 e Sulfate) Morphine No Notes: Memoria 5-05 (Same l 09:01: as:MORPhin [place] 00 e Sulfate) Zofran No Notes: Memoria 5-05 (Same as: l 09:00: Zofran) [place] Lovenox No Notes: Memoria 5-05 (Same as: l 09:00: Lovenox) [place] Zofran No Notes: Memoria 5-05 (Same as: l 09:00: Zofran) [place] Lovenox No Notes: Memoria 5-05 (Same as: l 09:00: Lovenox) [place] Zofran No Notes: Memoria 5-05 (Same as: l 09:00: Zofran) [place] 00 Lovenox No Notes: Memoria 5-05 (Same as: l 09:00: Lovenox) [place] 00 Zofran No Notes: Memoria 5-05 (Same as: [...] 30 day, Stop date: 01/29/14 3:51:00 normal 2013-0 No 1,000 mL, Memori a saline 0.9% 5-05 Rate: 100 l IV 1,000 mL 08:52: ml/hr, Herm booker 00 Infuse over: 10 hr, Route: IV, Dosing Weight 71.818 kg, Total Volume: 1,000, Start date: 12/30/13 3:52:00, Duration: 30 day, Stop date: 01/29/14 3:51:00 normal 2013-0 No 1,000 mL, Memori a saline 0.9% 5-05 Rate: 100 l IV 1,000 mL 08:52: ml/hr, Herm booker 00 Infuse over: 10 hr, Route: IV, Dosing Weight 71.818 kg, Total Volume: 1,000, Start date: 12/30/13 3:52:00, Duration: 30 day, Stop date: 01/29/14 3:51:00 normal 2013-0 No 1,000 mL, Memori a saline 0.9% 5-05 Rate: 100 l IV 1,000 mL 08:52: ml/hr, Herm booker 00 Infuse over: 10 hr, Route: IV, Dosing Weight 71.818 kg, Total Volume: 1,000, Start date: 12/30/13 3:52:00, Duration: 30 day, Stop date: 01/29/14 3:51:00 normal 2014-0 No 1,000 mL, Memori a saline 0.9% 5-05 Rate: 100 l IV 1,000 mL 08:52: ml/hr, Herm booker 00 Infuse over: 10 hr, Route: IV, Dosing Weight 71.818 kg, Total Volume: 1,000, Start date: 12/30/13 3:52:00, Duration: 30 day, Stop date: 01/29/14 3:51:00 Immunizations Ordered Filled Immunization Date Status Comments [facility] e Immunization Name Name SARS-COV-2 COVID-19 2021-05-15 Completed Unive rsity of MODERNA VACCINE 00:00:00 [facility] SARS-COV-2 COVID-19 2021-05-15 Completed Unive rsity of MODERNA VACCINE 00:00:00 [facility] SARS-COV-2 COVID-19 2021-05-15 Completed Unive rsity of MODERNA VACCINE 00:00:00 [facility] SARS-COV-2 COVID-19 2021-04-17 Completed Unive rsity of MODERNA VACCINE 00:00:00 [facility] SARS-COV-2 COVID-19 2021-04-17 Completed Unive rsity of MODERNA VACCINE 00:00:00 [facility] SARS-COV-2 COVID-19 2021-04-17 Completed Unive rsity of MODERNA VACCINE 00:00:00 [facility] 2018-04-13 Completed [facility] 00:00:00 [facility] 2018-04-13 Completed Buddhism 00:00:00 [facility] 2018-04-13 Completed Buddhism 00:00:00 [facility] 2018-04-13 Completed [facility] 00:00:00 [facility] 2018-04-13 Completed [facility] 00:00:00 [facility] 2018-04-13 Completed [facility] 00:00:00 [facility] Vital Signs Vital Name Observation Time Observation Value Comments Source HEIGHT 2022-09-13 11:50:00 153.7 cm WEIGHT 2022-09-13 11:50:00 58.741 kg HEIGHT 2022-09-13 11:50:00 153.7 cm WEIGHT 2022-09-13 11:50:00 58.741 kg HEIGHT 2022-09-13 11:50:00 153.7 cm WEIGHT 2022-09-13 11:50:00 58.741 kg HEIGHT 2022-06-21 14:37:00 154.9 cm WEIGHT 2022-06-21 14:37:00 58.65 kg HEIGHT 2022-06-21 14:37:00 154.9 cm WEIGHT 2022-06-21 14:37:00 58.65 kg HEIGHT 2022-06-21 14:37:00 154.9 cm WEIGHT 2022-06-21 14:37:00 58.65 kg WEIGHT 2022-05-14 23:07:00 58.242 kg HEIGHT 2022-05-14 16:11:00 154.9 cm WEIGHT 2022-05-14 16:11:00 61.236 kg WEIGHT 2022-05-14 23:07:00 58.242 kg HEIGHT 2022-05-14 16:11:00 154.9 cm WEIGHT 2022-05-14 16:11:00 61.236 kg WEIGHT 2022-05-14 23:07:00 58.242 kg HEIGHT 2022-05-14 16:11:00 154.9 cm WEIGHT 2022-05-14 16:11:00 61.236 kg Systolic blood 2021-11-30 15:18:00 160 mm[Hg] Univer sity of pressure [facility] Diastolic blood 2021-11-30 15:18:00 82 mm[Hg] Unive rsity of [facility] Heart rate 2021-11-30 14:45:00 59 /min [facility] Body temperature 2021-11-30 14:45:00 36.56 Carla [facility] Respiratory rate 2021-11-30 14:45:00 18 /[facility] height 2021-11-30 14:45:00 154.9 cm [facility] Body weight 2021-11-30 14:45:00 [facility] BMI 2021-11-30 14:45:00 24.51 kg/m2 Universi [facility] Heart rate 2022-09-13 11:50:00 60 /min [facility] Body temperature 2022-09-13 11:50:00 36.22 Carla [facility] Respiratory rate 2022-09-13 11:50:00 16 /min [facility] Body height 2022-09-13 11:50:00 153.7 cm actual [facility] Body weight 2022-09-13 11:50:00 58.741 kg [facility] BMI 2022-09-13 11:50:00 24.87 kg/m2 [facility] Oxygen saturation in 2022-09-13 11:50:00 96 /min [facility] Arterial blood by Medical Ce nter Pulse oximetry Systolic blood 2022-06-21 14:37:00 154 mm[Hg] [facility] Diastolic blood 2022-06-21 14:37:00 85 mm[Hg] [facility] Heart rate 2022-06-21 14:37:00 86 /min [facility] Body temperature 2022-06-21 14:37:00 36.28 Carla [facility] Respiratory rate 2022-06-21 14:37:00 18 /min [facility] Body height 2022-06-21 14:37:00 154.9 cm [facility] Body weight 2022-06-21 14:37:00 58.65 kg [facility] BMI 2022-06-21 14:37:00 24.43 kg/m2 [facility] Oxygen saturation in 2022-06-21 14:37:00 95 /min [facility] Arterial blood by Medical Ce [facility]ter Pulse oximetry Weight 2014-05-16 14:54:00 [facility] Calculated 2014-05-16 14:54:00 Morgan Mccann Height 2014-05-16 14:54:00 160.02 cm [facility] Respitory Rate 2014-01-02 20:58:00 Morgan Mccann Heart Rate 2014-01-02 20:58:00 [facility] Temperature Oral (F) 2014-01-02 20:58:00 98.4 F [facility] Diastolic (mm Hg) 2014-01-02 20:58:00 Mem orial [place] Systolic (mm Hg) 2014-01-02 20:58:00 Mau rial [place] Temperature Oral (F) 2014-01-02 16:23:00 98.2 F [facility] [place] Heart Rate 2014-01-02 16:23:00 [facility] [place] Respitory Rate 2014-01-02 16:23:00 Memori al [place] Systolic (mm Hg) 2014-01-02 16:23:00 Mau rial [place] Diastolic (mm Hg) 2014-01-02 16:23:00 Mem orial [place] Diastolic (mm Hg) 2014-01-02 12:20:00 Mem orial [place] Systolic (mm Hg) 2014-01-02 12:20:00 Mau rial [place] Respitory Rate 2014-01-02 12:20:00 Memori al [place] Temperature Oral (F) 2014-01-02 12:20:00 98.5 F [facility] [place] Heart Rate 2014-01-02 12:20:00 [facility] [place] Weight 2013-12-30 08:54:00 [facility] [place] Height 2013-12-30 08:54:00 162.56 cm [facility] [place] BMI Calculated 2013-12-30 08:54:00 Mem[facility] [place] Weight 2013-12-30 08:52:00 [facility] [place] BMI Calculated 2013-12-30 08:52:00 Memori al [place] Height 2013-12-30 08:52:00 162.56 cm [facility] [place] Weight 2013-12-30 08:40:00 [facility] [place] BMI Calculated 2013-12-30 08:40:00 Memori al [place] Height 2013-12-30 08:40:00 162.56 cm [facility] [place] Procedures Procedure Date / Time Performing Clinician Source Performed CBC W/PLT COUNT & AUTO 2022-09-13 [facility] CBC W/PLT COUNT & AUTO 2022-09-13 11:59[facility] COMPREHENSIVE METABOLIC 2022-09-13 11:59[facility] CT HEART-CORONARY 2022-07-18 15:37:00 Johnny Pantoja [facility] ARTERIES CALCIUM SCORE Medical C enter SCREENING WITHOUT IV CONTRAST 2D ECHO W/ DOPPLER 2022-07-18 13:04:08 Johnny Pantoja [facility] (CW/PW/COLOR) [facility] ECG 12-LEAD 2022-06-21 14:31:02 Unknown, [facility] ECG 12-LEAD 2022-06-21 14:31:02 [facility] ECG 12-LEAD 2022-06-21 14:31:02 Unknown, [facility] CBC W/PLT COUNT & AUTO 2022-06-21 14:30:00 [facility] COMPREHENSIVE METABOLIC 2022-06-21 14:30:00 [facility] PANEL [facility] CBC W/PLT COUNT & AUTO 2022-06-21 14:30:00 [facility] NM MYOCARDIAL PERFUSION 2022-05-16 16:14:00 [facility] SPECT, PHARM [facility] APTT 2022-05-16 15:02[facility]22-[facility]-16 13:51:06 Unknown, 7 [facility] TOLERANCE(NON-NUCLEAR Medical Ce nter TREADMILL) ECG 12-LEAD 2022-05-16 13:28:19 Unknown, 7 [facility] ECG 12-LEAD 2022-05-16 13:28:19 Unknown, 7 [facility] ECG 12-LEAD 2022-05-16 13:28:19 Unknown, 7 [facility] ECG 12-LEAD 2022-05-16 13:27:51 Unknown, 7 [facility] ECG 12-LEAD 2022-05-16 13:27:51 Unknown, 7 [facility] ECG 12-LEAD 2022-05-16 13:27:51 Unknown, 7 [facility] APTT 2022-05-16 03:57:00 Noé, [facility] CBC (HEMOGRAM ONLY) 2022-05-16 03:57:00 [facility] 2022-05-16 03:57:00 Leanne Mcdonnell [facility] MAGNESIUM 2022-05-16 03:57:00 Leanne Mcdonnell [facility] APTT 2022-05-15 16:09:00 Noé, [facility] CBC (HEMOGRAM ONLY) 2022-05-15 05:43:00 Noé, [facility] APTT 2022-05-15 05:43:00 Noé, [facility] ECG 12-LEAD 2022-05-15 01:50:44 Unknown, Hl7 [facility] ECG 12-LEAD 2022-05-15 01:50[facility]15 01:50:44 Unknown, Hl7 [facility] HIGH SENSITIVITY TROPONIN 2022-05-15 01:30:[facility]-14 23:03:01 Unknown, Hl7 [facility] ECG 12-LEAD 2022-05-14 23:03:01 [facility]-14 23:03:01 Unknown, Hl7 [facility] PLATELET COUNT 2022-05-14 22:47:00 Noé, [facility] APTT 2022-05-14 22:47:00 Noé, [facility] LIPID PANEL 2022-05-14 22:47:00 Noé, [facility] HIGH SENSITIVITY TROPONIN 2022-05-14 22:47:00 [facility] & 2022-05-14 21:18:00 Noé, [facility] [facility] HIGH SENSITIVITY TROPONIN 2022-05-14 18:33:00 Marce López [facility] ECG 12-LEAD 2022-05-14 18:29:48 Unknown, Hl7 Doctor [facility] ECG 12-LEAD 2022-05-14 18:29:48 Andrew Hernandez [facility] ECG 12-LEAD 2022-05-14 18:29:48 Unknown, Hl7 Doctor [facility] CBC W/PLT COUNT & AUTO 2022-05-14 16:55:00 Andrew Hernandez [facility] DIFFERENTIAL [facility] CBC W/PLT COUNT & AUTO 2022-05-14 16:55:00 Andrew Hernandez [facility] COMPREHENSIVE METABOLIC 2022-05-14 16:55:00 Andrew Hernandez [facility] PANEL [facility] HIGH SENSITIVITY TROPONIN 2022-05-14 16:55:00 Marce López [facility] XR CHEST 2 VIEWS 2022-05-14 16:30:00 Andrew Hernandez [facility] ECG 12-LEAD 2022-05-14 16:13:36 Unknown, Hl7 Doctor [facility] ECG 12-LEAD 2022-05-14 16:13:36 Unknown, Hl7 Doctor [facility] ECG 12-LEAD 2022-05-14 16:13:36 Claudia Umanzor S [facility] EKG-SCANNED 2022-05-14 00:00:00 Provider, Default [facility] Abdominal aorta angiogram [facility] [place] Abdominal hysterectomy [facility] Angiography of renal [facility] arteries, bilateral Appendectomy [facility] Superior mesenteric [facility] angiography Suspension of bladder [facility] Tonsillectomy [facility] Bladder augmentation [facility] Plan of Care Planned Activity Planned Date Details Comments Source Future Scheduled 2028-04-13 DTAP/TDAP/TD VACCINES ([address] [facility] 00:00:00 - Td or Tdap) [code = Medica l Center DTAP/TDAP/TD VACCINES (2 - Td or Tdap)] Future Scheduled 2028-04-13 DTAP/TDAP/TD VACCINES ([address] [facility] 00:00:00 - Td or Tdap) [code = Medica l Center DTAP/TDAP/TD VACCINES (2 - Td or Tdap)] Future Scheduled 2025-05-14 Lipid panel (procedure) [facility] 00:00:00 [code = 39305984] Medical Ce nter Future Scheduled 2025-05-14 Lipid panel (procedure) [facility] Test 00:00:00 [code = 54225483] Medical Ce nter Future Scheduled 2022-09-06 Screening for malignant [facility] of Test 07:49:10 neoplasm of colon Medicine (procedure) [code = 604238415] Future Scheduled 2022-09-06 Screening for malignant [facility] Test 07:49:10 neoplasm of breast Medicine (procedure) [code = 224341658] Future Scheduled 2022-09-06 Pneumococcal Combined (1 [facility] Test 07:49:10 - PCV) [code = Medicine Pneumococcal Combined (1 - PCV)] Future Scheduled 2022-09-06 Human immunodeficiency B [facility] of Test 07:49:10 virus screening Medicine (procedure) [code = 929163135] Future Scheduled 2022-09-06 Hepatitis C screening [facility] Test 07:49:10 (procedure) [code = Medicine 749109756] Future Scheduled 2022-09-06 Screening for malignant [facility] Test 07:49:10 neoplasm of cervix Medicine (procedure) [code = 031106095] Future Scheduled 2022-09-06 ZOSTER VACCINE (1 of 2) [facility] Test 07:49:10 [code = ZOSTER VACCINE (1 Me dicine of 2)] Future Scheduled 2022-09-06 COVID-19 Vaccine (3 - [facility] Test 07:49:10 Booster for Moderna Medicine series) [code = COVID-19 Vaccine (3 - Booster for Moderna series)] Future Scheduled 2022-09-06 FLU VACCINE > 6 MONTHS B [facility] Test 07:49:10 [code = FLU VACCINE > 6 Medi cine MONTHS] Future Scheduled 2022-09-06 Medicare IPPE (Welcome to [facility] Test 07:49:10 Medicare) [code = Medicine Medicare IPPE (Welcome to Medicare)] Future Scheduled 2022-09-06 TETANUS SHOT (ADULT) [facility] of Test 07:49:10 [code = TETANUS SHOT Medicin e (ADULT)] Future Scheduled 2022-08-29 MEDICARE ANNUAL WELLNESS [facility] Test 00:00:00 (YEAR 2 or FIRST YEAR if Med ical Center no IPPE) [code = MEDICARE ANNUAL WELLNESS (YEAR 2 or FIRST YEAR if no IPPE)] Future Scheduled 2022-08-29 MEDICARE ANNUAL WELLNESS [facility] Test 00:00:00 (YEAR 2 or FIRST YEAR if Med ical Center no IPPE) [code = MEDICARE ANNUAL WELLNESS (YEAR 2 or FIRST YEAR if no IPPE)] Future Scheduled 2022-08-17 COVID-19 VACCINE (#1) [facility] 18:22:05 [code = COVID-19 VACCINE Hos pital (#1)] Future Scheduled 2022-08-17 Screening for malignant [facility] 18:22:05 neoplasm of cervix Hospital (procedure) [code = 457902961] Future Scheduled 2022-08-17 COLONOSCOPY SCREENING [facility] 18:22:05 [code = COLONOSCOPY Hospital SCREENING] Future Scheduled 2022-08-17 SHINGLES VACCINES (1 of [facility] 18:22:05 2) [code = SHINGLES Hospital VACCINES (1 of 2)] Future Scheduled 2022-08-17 BREAST CANCER SCREENING [facility] 18:22:05 [code = BREAST CANCER Hospit al SCREENING] Future Scheduled 2022-08-17 INFLUENZA VACCINE [code = [facility] Test 18:22:05 INFLUENZA VACCINE] Hospital Future Scheduled 2022-05-28 [facility]al [facility] 00:[facility]:00 (>/= 19 yrs) [code = IMM Influenza Seasonal (>/= 19 yrs)] Future Scheduled 2022-05-28 IMM Influenza Seasonal [facility] 00:00:00 (>/= 19 yrs) [code = IMM Influenza Seasonal (>/= 19 yrs)] Future Scheduled 2022-04-28 INFLUENZA VACCINE (#1[facility] [code = INFLUENZA VACCINE Me dical Center (#1)] Future Scheduled 2022-04-28 INFLUENZA VACCINE (#1) [facility] 00:00:00 [code = INFLUENZA VACCINE Me dical Center (#1)] Future Scheduled 2022-04-26 HEPATITIS B VACCINES (1 [facility] Test 16:18:33 of 3 - 3-dose series) Hospit al [code = HEPATITIS B VACCINES (1 of 3 - 3-dose series)] Future Scheduled 2022-04-26 COVID-19 VACCINE (#1) [facility] 16:18:33 [code = COVID-19 VACCINE Hos pital (#1)] Future Scheduled 2022-04-26 Screening for malignant [facility] 16:18:33 neoplasm of cervix Hospital (procedure) [code = 695559735] Future Scheduled 2022-04-26 COLONOSCOPY SCREENING [facility] 16:18:33 [code = COLONOSCOPY Hospital SCREENING] Future Scheduled 2022-04-26 SHINGLES VACCINES (1 of [facility] 16:18:33 2) [code = SHINGLES Hospital VACCINES (1 of 2)] Future Scheduled 2022-04-26 BREAST CANCER SCREENING [facility] 16:18:33 [code = BREAST CANCER Hospit al SCREENING] Future Scheduled 2022-04-26 INFLUENZA VACCINE [code = [facility] Test 16:18:33 INFLUENZA VACCINE] Hospital Future Scheduled 2021-11-03 COLONOSCOPY SCREENING [facility] 06:47:29 [code = COLONOSCOPY Hospital SCREENING] Future Scheduled 2021-11-03 SHINGLES VACCINES (#1) [facility] 06:47:29 [code = SHINGLES VACCINES Ho spital (#1)] Future Scheduled 2021-11-03 BREAST CANCER SCREENING [facility] 06:47:29 [code = BREAST CANCER Hospit al SCREENING] Future Scheduled 2021-11-03 INFLUENZA VACCINE [code = [facility] Test 06:47:29 INFLUENZA VACCINE] Hospital Future Scheduled 2021-11-03 COVID-19 VACCINE (1) [facility] 06:47:29 [code = COVID-19 VACCINE Hos pital (1)] Future Scheduled 2021-11-03 Screening for malignant [facility] Test 06:47:29 neoplasm of cervix Hospital (procedure) [code = 199575031] Future Scheduled 2021-10-15 COVID-19 VACCINE (3 [facility]00 Booster for [facility] series) [code = COVID-19 VACCINE (3 - Booster for Moderna series)] Future Scheduled 2021-10-15 COVID-19 VACCINE (3 - [facility] 00:00:00 Booster for Moderna Medical Center series) [code = COVID-19 VACCINE (3 - Booster for Moderna series)] Future Scheduled 2021-05-28 IMM Influenza Seasonal H [...] 19 yrs)] Future Scheduled 2013 Screening for malignant [facility] Test 00:00:00 neoplasm of colon (procedure) [code = 064811251] Future Scheduled 2013 SHINGLES VACCINES ([address] [facility] 00:00:00 2) [facility])] Future Scheduled 2013 SHINGLES VACCINES ([address] [facility] Test 00:00:00 2) [code = [facility] VACCINES (1 of 2)] Future Scheduled 2013 Screening for malignant [facility] Test 00:00:00 neoplasm of colon (procedure) [code = 050016508] Future Scheduled 2013 Screening for malignant [facility] Test 00:00:00 neoplasm of colon (procedure) [code = 339810465] Future Scheduled 2013 Screening for malignant [facility] Test 00:00:00 neoplasm of colon (procedure) [code = 639527391] Future Scheduled 2013 Screening for malignant [facility] Test 00:00:00 neoplasm of colon (procedure) [code = 253557593] Future Scheduled 2003 Breast Cancer Scrn Harri [...] Scrn (Yearly)] Future Scheduled 1993 Screening for malignant [facility] Test 00:00:00 neoplasm of cervix (procedure) [code = 592116378] Future Scheduled 1993 Screening for malignant [facility] Test 00:00:00 neoplasm of cervix (procedure) [code = 725853812] Future Scheduled 1993 Screening for malignant [facility] Test 00:00:00 neoplasm of cervix (procedure) [code = 963878932] Future Scheduled 1993 Screening for malignant [facility] Test 00:00:00 neoplasm of cervix (procedure) [code = 707307319] Future Scheduled 1993 Screening for malignant [facility] Test 00:00:00 neoplasm of cervix (procedure) [code = 127873609] Future Scheduled 1993 Screening for malignant [facility] Test 00:00:00 neoplasm of cervix (procedure) [code = 158724057] Future Scheduled 1993 Screening for malignant [facility] Test 00:00:00 neoplasm of cervix (procedure) [code = 438512406] Future Scheduled 1993 Screening for malignant [facility] Test 00:00:00 neoplasm of cervix (procedure) [code = 088287319] Future Scheduled 1993 Screening for malignant [facility] Test 00:00:00 neoplasm of cervix (procedure) [code = 117745243] Future Scheduled 1993 Screening for malignant [facility] Test 00:00:00 neoplasm of cervix (procedure) [code = 949135269] Future Scheduled 1984-02-27 Screening for malignant [facility] Test 00:00:00 neoplasm of cervix Medical C enter (procedure) [code = 884680420] Future Scheduled 1984-02-27 Screening for malignant [facility] Test 00:00:00 neoplasm of cervix Medical C enter (procedure) [code = 723727887] Future Scheduled 1981 HEPATITIS C [facility]CRE[facility]ING [facility] 00:00:00 [code = HEPATITIS C Medical Center SCREENING] Future Scheduled 1981 HEPATITIS C [facility] 00:00:00 [code = HEPATITIS C Medical Center SCREENING] Future Scheduled 1975 COVID-19 Vaccine (1) [facility] 00:00:00 [code = COVID-19 Vaccine (1)] Future Scheduled [address] [facility] Test 00:00:00 Counseling and Screening Med ical Center (12+) [code = Tobacco Cessation Counseling and Screening (12+)] Future Scheduled [address] [facility] Test 00:00:00 Counseling and Screening Med ical Center (12+) [code = Tobacco Cessation Counseling and Screening (12+)] Future Scheduled 1969 Imm Pneumococcal 0-64 (1 [facility] Test 00:00:00 of 2 - PPSV23) [code = Imm Pneumococcal 0-64 (1 of 2 - PPSV23)] Future Scheduled 1969 Imm Pneumococcal 0-64 (1 [facility] Test 00:00:00 of 2 - PPSV23) [code = Imm Pneumococcal 0-64 (1 of 2 - PPSV23)] Future Scheduled 1969 PNEUMOCOCCAL VACCINE 0-[address] [facility] Test 00:00:00 YRS (1 - PCV) [code = Medica l Center PNEUMOCOCCAL VACCINE 0-64 YRS (1 - PCV)] Future Scheduled 1969 PNEUMOCOCCAL VACCINE 0-[address] [facility] Test 00:00:00 YRS (1 - PCV) [code = Medica l Center PNEUMOCOCCAL VACCINE 0-64 YRS (1 - PCV)] Future Scheduled 1968-02-27 COVID-19 Vaccine (1) [facility] 00:00:00 [code = COVID-19 Vaccine (1)] Future Scheduled 1968-02-27 COVID-19 Vaccine (1) [facility] 00:00:00 [code = COVID-19 Vaccine (1)] Future Scheduled 1963 COVID-19 Vaccine (#1) [facility] 00:00:00 [code = COVID-19 Vaccine (#1)] Future Scheduled 1963 COVID-19 Vaccine (#1) [facility] 00:00:00 [code = COVID-19 Vaccine (#1)] Future Scheduled 1963 Fluoride Varnish [code = [facility] Test 00:00:00 Fluoride Varnish] Future Scheduled 1963 Screening for malignant [facility] Test 00:00:00 neoplasm of breast Medical C enter (procedure) [code = 868172828] Future Scheduled 1963 CT Colonography (combo) [facility] Test 00:00:00 [code = CT Colonography Medi yesy Center (combo)] Future Scheduled 1963 Screening for malignant [facility] Test 00:00:00 neoplasm of colon Medical Ce nter (procedure) [code = 565682351] Future Scheduled 1963 Screening for malignant [facility] Test 00:00:00 neoplasm of colon Medical Ce nter (procedure) [code = 567761533] Future Scheduled 1963 Screening for malignant [facility] Test 00:00:00 neoplasm of colon Medical Ce nter (procedure) [code = 968300191] Future Scheduled 1963 Screening for malignant [facility] Test 00:00:00 neoplasm of colon Medical Ce nter (procedure) [code = 832675085] Future Scheduled 1963 Sigmoidoscopy [code = [facility] 00:[facility] Sigmoidoscopy] Medical Cente r Future Scheduled 1963 Screening for malignant [facility] Test 00:00:00 neoplasm of breast Medical C enter (procedure) [code = 715508401] Future Scheduled 1963 CT Colonography (combo) [facility] Test 00:00:00 [code = CT Colonography Medi yesy Center (combo)] Future Scheduled 1963 Screening for malignant [facility] Test 00:00:00 neoplasm of colon Medical Ce nter (procedure) [code = 906042194] Future Scheduled 1963 Screening for malignant [facility] Test 00:00:00 neoplasm of colon Medical Ce nter (procedure) [code = 514726384] Future Scheduled 1963 Screening for malignant [facility] Test 00:00:00 neoplasm of colon Medical Ce nter (procedure) [code = 492785800] Future Scheduled 1963 Screening for malignant [facility] Test 00:00:00 neoplasm of colon Medical Ce nter (procedure) [code = 784765375] Future Scheduled 1963 Sigmoidoscopy [code = [facility] 00:[facility] S[facility]oidoscopy] Medical Cente r Future Scheduled IMM Influenza Seasonal [facility] May to October (>/= 19 yrs) [code = IMM Influenza Seasonal May to October (>/= 19 yrs)] Future Scheduled IMM Influenza Seasonal [facility] May to October (>/= 19 yrs) [code = IMM Influenza Seasonal May to October (>/= 19 yrs)] Future Scheduled IMM Influenza Seasonal [facility] May to October (>/= 19 yrs) [code = IMM Influenza Seasonal May to October (>/= 19 yrs)] Future Scheduled Screening for malignant [facility] neoplasm of colon (procedure) [code = 338495826] Future Scheduled Colorectal Cancer Scrn [facility] Annual (FIT/FOBT) Age 50 to 75 [code = Colorectal Cancer Scrn Annual (FIT/FOBT) Age 50 to 75] Future Scheduled Breast Cancer Scrn [facility] (Yearly) [code = Breast Cancer Scrn (Yearly)] Future Scheduled Screening for malignant [facility] neoplasm of cervix (procedure) [code = 089474577] Future Scheduled Screening for malignant [facility] neoplasm of cervix (procedure) [code = 057995829] Future Scheduled Cervical Cancer Scrn (3 [facility] Yrs) [code = Cervical Cancer Scrn (3 Yrs)] Future Scheduled COVID-19 Vaccine (1) [facility] [code = COVID-19 Vaccine (1)] Encounters Start End Encounter Admission Attending Care Care Encounter Source Date/Time Date/Time Type Type Clinicians Facility Department ID 2022-12-19 2022-12-19 Outpatient KEVIN KIRBY [facility] [id number] 00:00:00 00:00:00 JAE 2022-11-30 2022-11-30 Outpatient R SAURABH CARVAJAL [facility] B [id number] Univers 10:30:00 10:30:[address] [facility] 2022-11-30 2022-11-30 Outpatient R ROHANTRUNGKARENSAURABH LEDESMA [facility] B [id number] Univers 10:30:00 10:30:00 WEI SAURABH [facility] 2022-09-13 2022-09-13 Office Zulema [facility] [id number] 13:30:00 13:45:00 Visit Jae [facility] 2022-09-13 2022-09-13 Outpatient KEVIN KIRBY [facility] [id number] SLE 11:41:47 11:41:47 JAE 2022-09-06 2022-09-06 Office JEREMY ZHONG [facility] [id number] [facility] 07:39:49 09:09:52 Visit AMBULATOR 350.1.13.21 College Y 0.2.7.2.686 of [id number] Medi juan antonio 390 e 2022-09-02 2022-09-[address] [facility] [id number] 00:00:00 00:00:00 cedric [facility] 2022-09-02 2022-09-[address] [facility] [id number] 00:00:00 00:00:00 cedric Brucely [facility] 2022-07-18 2022-07-18 Outpatient ARLYN GREGORIO SLE [id number] SLE 14:13:32 23:59:00 [facility] 2022-07-18 2022-07-18 [facility] [id number] 14:00:00 23:59:00 Encounter [facility] 2022-07-18 2022-07-18 [facility] [id number] 14:00:00 23:59:00 Encounter [facility] 2022-07-18 2022-07-18 Outpatient VINEET PANTOJA SLE SLE [id number] SLE 14:13:03 13:59:00 [facility] 2022-07-18 2022-07-18 Hospital Seals, [facility] [id number] 12:30:00 13:59:00 Encounter [facility] 2022-07-18 2022-07-18 Hospital Seals, [facility] [id number] 12:30:00 13:59:00 Encounter [facility] 2022-07-18 2022-07-18 Hospital Seals, [facility] [id number] 10:02:46 12:29:00 Encounter [facility] 2022-07-18 2022-07-18 Hospital Seals, [facility] [id number] 10:02:46 12:29:00 Encounter [facility] 2022-07-18 2022-07-18 Outpatient SEAL, [facility] [id number] SLE 10:02:45 12:29:00 [facility] 2022-07-06 2022-07-06 Documentgill Matta, [facility] [id number] 00:00:00 00:00:00 [facility] 2022-07-06 2022-07-[address] [facility] [id number] 00:00:00 00:00:00 [facility] 2022-06-24 2022-06-24 Documentat Seals, [facility] [id number] 00:00:00 00:00:00 [facility] 2022-06-24 2022-06-24 Documentat Seals, [facility] [id number] 00:00:00 00:00:00 [facility] 2022-06-23 2022-06-[address] [facility] [id number] 00:00:00 00:00:00 [facility] 2022-06-23 2022-06-[address] [facility] [id number] 00:00:00 00:00:00 cedric Edwards [facility] 2022-06-21 2022-06-21 Outpatient [facility] [id number] [facility] 00:00:00 23:59:00 Darryl 2022-06-21 2022-06-21 Office [place], [facility] [id number] 15:15:00 15:45:00 Visit [facility] 2022-06-21 2022-06-21 Office EL [place], [facility] [id number] 15:15:00 15:45:00 Visit [facility] 2022-06-21 2022-06-21 Outpatient KEVIN KIRBY SLE [id number] [facility] 14:20:07 14:20:07 [place] 2022-06-21 2022-06-[address] [facility] [id number] 00:00:00 00:00:00 Only [facility] 2022-06-21 2022-06-[address] [facility] [id number] 00:00:00 00:00:00 [facility] 2022-06-20 2022-06-[facility] [id number] 14:45:00 15:15:00 Visit [facility] 2022-06-20 2022-06-20 Office [place], [facility] [id number] 14:45:00 15:15:00 Visit [facility] 2022-06-20 2022-06-20 Outpatient EL ZULEMA SLEAundrea SLE [id number] [facility] 00:00:00 00:00:00 [place] 2022-06-16 2022-06-16 Outpatient R SAURABH CARVAJAL [facility] B [id number] Univers 00:00:00 00:00:00 SAURABH CARVAJAL [facility] 2022-06-06 2022-06-06 Outpatient R SAURABH CARVAJAL [facility] B [id number] Univers 00:00:00 00:00:[address] [facility] 2022-05-20 2022-05-[address] [facility] [id number] 00:00:00 00:00:00 Only Qiana [facility] 2022-05-20 2022-05-[address] [facility] [id number] 00:00:00 00:00:00 cedric [facility] 2022-05-20 2022-05-[address] [facility] [id number] 00:00:00 00:00:00 Only Qiana [facility] 2022-05-20 2022-05-[address] [facility] [id number] 00:00:00 00:00:00 cedric Edwards [facility] 2022-05-14 2022-05-16 [facility] Harley Montesinos [facility] [id number] 16:03:00 19:02:00 Encounter [facility] 2022-05-14 2022-05-[address] [facility] [id number] 16:03:00 19:02:00 Encounter [facility] 2022-05-14 2022-05-16 Inpatient ER KEVIN MCDONNELL Emergency [id number] [facility] 16:03:00 19:02:00 LEANNE 2022-05-15 2022-05-15 Outpatient [facility] [id number] [facility] 00:00:00 23:59:00 Darryl 2022-05-15 2022-05-[address] [facility] [id number] [facility] 00:00:00 00:00:00 [facility] 2022-05-15 2022-05-[address] [facility] [id number] [facility] 00:00:00 00:00:00 [facility] 2022-05-14 2022-05-[address] [facility] [id number] 00:00:00 00:00:00 Only [facility] 2022-05-14 2022-05-[address] [facility] [id number] 00:00:00 00:00:00 Only [facility] 2021-12-08 2021-12-08 Case Wei [facility] [id number] [facility] 00:00:00 00:00:00 Management Saurabh SESAY [id number] ity of [id number] [id number] [address] 2021-12-07 2021-12-07 [employer] 2, Adc Lab [facility] [id number] [facility] 11:15:00 11:30:00 Visit Eddie Austin [id number] ity [facility] [id number] [id number] [place] [address] 2021-12-07 2021-12-07 Outpatient R EDDIE [facility] [id number] Univers 11:15:00 11:15:00 [facility] 2021-11-30 2021-11-30 Office Saurabh Carvajal [facility] [id number]. [id number] [id number] Univers 09:00:00 10:42:48 Visit Eddie Austin [id number] [id number] [id number] [address] 2021-11-30 2021-11-30 Outpatient EDDIE [facility] [id number] Univers 09:00:00 10:42:48 [facility] 2021-11-30 2021-11-30 Outpatient EDDIE [facility] [id number] Univers 09:00:00 09:00:00 [facility] 2021-11-24 2021-11-24 Pre Visit TERESA Cao [id number] Univers 00:00:00 00:00:00 Outreach Maya CORADO [id number] [id number] [id number] [address] 2021-08-05 2021-08-05 Outpatient R [facility]OJCN [facility] [id number] Univers 15:30:00 15:30:00 ity of [facility] 2021-08-02 2021-08-02 Pre Visit TERESA Cao 1.2.620.145 2020 [id number] Univers 00:00:00 00:00:00 Outreach Maya MAK 350.1.13.10 i [place] [phone] [address] 2021-04-22 2021-04-22 Letter LUCIANO Patel 1.2.840.114 [id number] Univers 00:00:00 00:00:00 (Out) Fannie BAUER 350.1.13.10 i ty of HOSPITAL 4.2.7.2.686 [place] as [phone] [address] 2021-04-21 2021-04-21 Laboratory Only, Ang Db Test [facility] 1.2.8 40.114 [id number] Univers 16:03:49 16:18:49 Only Tobi [facility] 350.1.13.10 ity of [place] 4.2.7.2.686 [place] as Delmar?Blea [id number] [address] Medical Office Building 2021-04-21 2021-04-21 Outpatient R [facility] [id number] Univers 15:45:00 15:45:00 VIELKA [facility] 2021-04-21 2021-04-21 Letter Doctor WOLF 1.2.840.114 [id number] Univers 00:00:00 00:00:00 (Out) UnassignedJUANCARLOS 350.1.13.10 ity of [place] [facility] 4.2.7.2.686 [place] as [phone] [address] 2021-04-21 2021-04-21 Letter Doctor LUCIANO 1.2.840.114 [id number] Univers 00:00:00 00:00:00 (Out) Unassigned, JUANCARLOS 350.1.13.10 ity of [place] [facility] 4.2.7.2.686 [place] as [phone] [facility] [address] 2021-04-21 2021-04-21 Orders Doctor LUCIANO 1.2.840.114 [id number] Univers 00:00:00 00:00:00 Only Unassigned, JUANCARLOS 350.1.13.10 ity of [place] [facility] 4.2.7.2.686 [place] as [phone] [facility] [address] 2021 2021-02-27 [facility] [id number] [facility] 15:47:00 11:36:00 Shadi 01 [facility] 2021-02-25 2021-02-25 Outpatient BRENDA Antunez LABO [id number] [facility] 18:45:00 18:45:00 Jaiden 73 [facility] 2020-12-28 2020-12-28 Outpatient MHIE MHIE [id number] [facility] 15:45:00 15:45:00 00 [facility] 2020-12-28 2020-12-28 Outpatient MHIE MHIE [id number] [facility] 15:45:00 15:45:00 00 [facility] 2020-07-02 2020-07-02 Emergency [facility] 1.2.423.852 [id number] 14:38:00 16:16:00 Elier Chris 350.1.13.10 [place] 4.2.7.2.686 [place] [id number] 2020-07-02 2020-07-02 Emergency X [facility] ERT [id number] Univers 14:28:00 14:28:00 it[facility] 2020-04-29 2020-04-29 Emergency [facility] 1.2.236.061 [id number] 12:18:00 15:08:00 Eddie Chris 350.1.13.10 [place] 4.2.7.2.686 [place] [phone] 2020-04-29 2020-04-29 [facility] [id number] Univers 12:07:00 12:07:00 EDDIE [facility] 2020-03-17 2020-03-17 Emergency [facility] 1.2.423.945 [id number] 11:37:56 13:51:00 Elier Chris 350.1.13.10 [place] 4.2.7.2.686 [place] [id number] 084 2020-03-17 2020-03-17 Emergency X [facility] ERT [id number] Univers 11:26:00 11:26:00 d[facility] 2020-03-17 2020-03-17 Orders Doctor LUCIANO 1.2.840.114 [id number] 00:00:00 00:00:00 Only Unassigned, JUANCARLOS 350.1.13.10 [place] [facility] 4.2.7.2.686 [id number] 2019-05-29 2019-05-29 Emergency [facility] [id number] Univers 06:47:32 09:46:00 MATEUS [facility] 2018-12-10 2018-12-10 Office [facility]Flavo [facility] [id number] Memoria 21:03:58 22:56:31 Visit r Practice l Katharine Andrews [facility] 2018-12-10 2018-12-10 Emergency nullFlavo Emergency [id number] Memoria 16:20:39 17:56:00 r Center l (6520) [facility] 2018-12-10 2018-12-10 Outpatient [facility] [id number] [place] 16:03:58 16:03:58 Health 2018-12-10 2018-12-10 Emergency [facility] [id number] [place] 11:20:39 11:20:39 Health 2017-09-01 2017-09-01 Emergency [facility] [id number] [place] 10:29:00 10:29:00 Health 2015-02-04 2015-02-05 Outpt Diag nullFlavo [facility] [id number] Memoria 13:00:00 04:59:00 Services r Outpatient 00 l Govind Morin 2015-02-04 2015-02-05 Outpt Diag nullFlavo [facility] [id number] Memoria 13:00:00 04:59:00 Services r Outpatient 00 l [facility] Patience 2015-02-04 2015-02-04 Outpatient Ashish, 2.16.840. 2.16.840.1. [id number] 08:00:00 23:59:00 Julian Marce 1.101202. [id number] 3.615.0.1 5.0.493 21 2826-05-11 2015-01-06 Outpatient [facility] [id number] Memoria 15:04:00 04:59:00 [place] 31 [facility] 2015-01-05 2015-01-06 Outpatient [facility] [id number] Memoria 15:04:00 04:59:00 [place] 31 [facility] 2015-01-05 2015-01-05 Outpatient Silvano-Alexei 2.16.840. 2.16.840. 1. [id number] 10:04:00 23:59:00 jono, 1.952895. 010637.3.61 31 Julita Sales 3.615.0.1 5.0.225 03 2063-09-23 2014-05-20 Bedded nullFlavo [facility] [id number] Memoria 11:14:00 19:30:00 Outpatient [place] 00 [facility] 2014-05-20 2014-05-20 Bedded [facility]Flavo [facility] [id number] Memoria 11:14:00 19:30:00 Outpatient [place] 00 [facility] 2014-05-20 2014-05-20 Outpatient Tito, 2.16.840. 2.16.840.1. [id number] 06:14:00 14:30:00 Larry Woodson 1.191452. [id number] 3.615.0.1 5.0.953 26 3602-05-05 2014-01-03 Inpatient [facility]Flavo [facility] [id number] Memoria 07:50:00 03:00:00 [facility] [address] [facility] 2013-12-30 2014-01-03 Inpatient [facility]Flavo [facility] [id number] Memoria 07:50:00 03:00:00 [place] [address] l [facility] 2013-12-30 2014-01-02 Outpatient Terminella, 2.16.840. 2.16.840. 1. [id number] 02:50:00 22:00:00 Rivera [id number]. [id number] 25 3.615.0.1 5.0.101 01 Results Test Description Test Time Test Comments Results Result Comments Source COMPREHENSIVE METABOLIC PANEL 2022-09-13 12:53:08 Test Item Value Reference Range Interpretation Comme nts TOTAL PROTEIN (BEAKER) 7.4 gm/dL 6.0-8.3 (test code = 770) ALBUMIN (BEAKER) (test 4.2 g/dL 3.5-5.0 code = 1145) ALKALINE PHOSPHATASE 140 U/L 40-150 (BEAKER) (test code = 346) BILIRUBIN TOTAL (BEAKER) 0.3 mg/dL 0.2-1.2 (test code = 377) SODIUM (BEAKER) (test 141 meq/L 136-145 code = 381) POTASSIUM (BEAKER) (test 4.0 meq/L 3.5-5.1 code = 379) CHLORIDE (BEAKER) (test 107 meq/L 98-107 code = 382) CO2 (BEAKER) (test code 29 meq/L 22-29 = 355) BLOOD UREA NITROGEN 7 mg/dL 7-21 (BEAKER) (test code = 354) CREATININE (BEAKER) 0.71 mg/dL 0.57-1.25 (test code = 358) GLUCOSE RANDOM (BEAKER) 84 mg/dL 70-105 (test code = 652) CALCIUM (BEAKER) (test 9.7 mg/dL 8.4-10.2 code = 697) AST (SGOT) (BEAKER) 19 U/L 5-34 (test code = 353) ALT (SGPT) (BEAKER) 15 U/L 6-55 (test code = 347) EGFR (BEAKER) (test code 98 mL/min/1.73 sq Interpretation of eGFR values = 1092) m Stage Descripti on Result G1 Normal or high >=90 G2 Mildly decreased 60-89 G3a Mildly to moderately 45-5 9 G3b Moderately to severely 30- 44 G4 Severly decreased 15-29 G5 Kidney failure <15Repo rted eGFR is based on the CK D-EPI 2020 equation that d oes not use a race coefficien tEstimated GFR is not as accurate as Creatinine Clearance in pr edicting glomerular filt ration rate. Estimated GFR i s not applicable for dialysis estefanía santos Joint Maker Machine ID - [id number] W/PLT COUNT & AUTO [id number] 12:38:19 Test Item Value Reference Range Interpretation Comments WHITE BLOOD CELL COUNT (BEAKER) 8.1 K/ L 3.5-10.5 (test code = 775) RED BLOOD CELL COUNT (BEAKER) 4.69 M/ L 3.93-5.22 (test code = 761) HEMOGLOBIN (BEAKER) (test code = 14.4 GM/DL 11.2-15.7 410) HEMATOCRIT (BEAKER) (test code = 42.6 % 34.1-44.9 411) MEAN CORPUSCULAR VOLUME (BEAKER) 91 fL 79-95 (test code = 753) MEAN CORPUSCULAR HEMOGLOBIN 30.7 pg 25.6-32.2 (BEAKER) (test code = 751) MEAN CORPUSCULAR HEMOGLOBIN CONC 33.8 GM/DL 32.2-35.5 (BEAKER) (test code = 752) RED CELL DISTRIBUTION WIDTH 12.0 % 11.7-14.4 (BEAKER) (test code = 412) PLATELET COUNT (BEAKER) (test 196 K/CU MM 150-450 code = 756) MEAN PLATELET VOLUME (BEAKER) 10.6 fL 9.4-12.3 (test code = 754) NUCLEATED RED BLOOD CELLS 0 /100 WBC 0-0 (BEAKER) (test code = 413) NEUTROPHILS RELATIVE PERCENT 42 % (BEAKER) (test code = 429) LYMPHOCYTES RELATIVE PERCENT 51 % (BEAKER) (test code = 430) MONOCYTES RELATIVE PERCENT 6 % (BEAKER) (test code = 431) EOSINOPHILS RELATIVE PERCENT 1 % (BEAKER) (test code = 432) BASOPHILS RELATIVE PERCENT 0 % (BEAKER) (test code = 437) NEUTROPHILS ABSOLUTE COUNT 3.39 K/ L 1.56-6.13 (BEAKER) (test code = 670) LYMPHOCYTES ABSOLUTE COUNT 4.09 K/ L 1.18-3.74 H (BEAKER) (test code = 414) MONOCYTES ABSOLUTE COUNT (BEAKER) 0.50 K/ L 0.24-0.36 H (test code = 415) EOSINOPHILS ABSOLUTE COUNT 0.08 K/ L 0.04-0.36 (BEAKER) (test code = 416) BASOPHILS ABSOLUTE COUNT (BEAKER) 0.02 K/ L 0.01-0.08 (test code = 417) IMMATURE GRANULOCYTES-RELATIVE 0.20 % 0.00-1.00 PERCENT (BEAKER) (test code = 2801) CT, HEART CORONARY YESY, WO [id number] 10:02:00[facility] ppo-oon for dr limUnlisted Reason for Exam - Click Yes and Enter Reason Below->No [facility] CENTERName: [facility]ARD : 1965 Sex: FAddendum BeginsREPORT STATUS:A I concur with the nonvascular findings. Signed: Tim Seay MDReport Verified Date/Time: 07/29/2022 10:02:26 Reading Location: [facility] Radiology ReadingRoomAddendum EndsFINAL REPORT CT scan for Coronary Calcium scoring, 18-Jul-22 INDICATION: This is a 57 -year old female with increased cardiac risk presents for calcium scoring TECHNIQUE: Spiral acquisition without contrast administration using a Siemens CT scan. Calcium score is analysed using the Vit[employer] software. This exam was performed according to our departmental dose-optimisation programme, which includes automated exposure control, adjustment of the mA and/or kV accordingto patient size and/or use of iterative reconstruction technique. Dose modulation, iterative reconstruction, and/or weight based adjustment of the mA/kV was utilized to reduce the radiation dose to as low as reasonably achievable. FINDINGS: VASCULAR: The central pulmonary artery is normal in calibre. The thoracic aorta is normal in course, caliber, contour. There is mild calcification seen in the aortic root, also in the descending thoracic aorta. The arch vessel branching pattern is normal. Minimalcalcification is seen in the takeoff of the arch vessel. The assessment of the pulmonary arteries and the thoracic aorta are limited as no intravenous contrast was administered. The cardiac chambers size are not enlarged, however, assessment is limited as no contrast was administered. The pericardium is normal appearance. There is no evidence of pericardial effusion. No mitral annular calcification is seen. No aortic valvular calcification is identified. Calcium score and high-resolution, ECG synchronized computed tomography of the heart with attention to the coronary arteries was performed. Coronary calcification was analyzed using the [employer] system software. These are the results of the calcium score evaluation (threshold = 130 HU): LM: = 0 LAD: = 252 LCX: = 12 RCA: = 22 Agatston: = 286 Reference ranges for calcium scores are provided as follows ([place] Clin Proc 1999; 74: 243-252): 0-10: minimal calcium 11-100: mild calcium 101-400 moderate calcium > 400 significant calcium The calcium score places patient greater than 95th percentile for her age group, using the DEAL database. The coronary arteries have normal origins. The left main coronary artery arises from the left sinus of Valsalva and give rise to the left anterior descending of the left circumflex arteries in the normal fashion. The right coronary artery arises from the right sinus of Valsalva. NON-VASCULAR: The thyroid gland appears unremarkable. The chest wall and mediastinum appears unremarkable. No signif icant adenopathy is seen in the mediastinum. In the lung windows, no endobronchial lesion is seen. No pleural effusion is identified. Scarring is identified right upper lobe near the apex. Overall, no suspicious pulmonary nodule is identified. Limited images of the upper abdomen reveals no acute abnormalities. No acute bony pathology is seen. Surgical hardware is identified anterior aspect of the upper vertebral bodies. CONCLUSION: 1. Quantitative coronary artery calcium Agatston score of 286. The calcium score places patient greater than 95th percentile for her age group, using the DEAL database. There is moderate calcification identified in the proximal mid LAD, with mild calcification seen in proximal LCx, and mild calcification identified in the proximal/mid RCA. 2. Normal coronary artery origins. 3. No acute pulmonary pathology. No pulmonary nodule is seen. 4. Normal thoracic aortic calibre. Scattered calcification is seen. 5. Other findings as described above. 6. An addendum will be dictated by the Welfare Administrator Radiologist regarding the nonvascular findings. THE REPORT WILL ONLY BE CONSIDERED COMPLETE AFTER THE ADDENDUM HAS BEEN DICTATED. Signed: Jean-Pierre Yarbrougheport Verified Date/Nuno e: 07/23/2022 08:08:03 2D Echo W/Doppler(CW/PW/Color)2022-07-18 18:01:25Ejection FractionSLEH ECHO [facility] W/Doppler(CW/PW/Color)2022-07-18 18:01:25Ejection FractionSLEH ECHO HEARTLAB [facility] 2022-06-21 15:38:11 Test Item Value Reference Range Interpretation Comments TOTAL PROTEIN 7.7 gm/dL 6.0-8.3 (BEAKER) (test code = 770) ALBUMIN (BEAKER) 4.3 g/dL 3.5-5.0 (test code = 1145) ALKALINE 150 U/L 40-150 PHOSPHATASE (BEAKER) (test code = 346) BILIRUBIN TOTAL 0.6 mg/dL 0.2-1.2 (BEAKER) (test code = 377) SODIUM (BEAKER) 139 meq/L 136-145 (test code = 381) POTASSIUM (BEAKER) 4.1 meq/L 3.5-5.1 (test code = 379) CHLORIDE (BEAKER) 104 meq/L 98-107 (test code = 382) CO2 (BEAKER) (test 28 meq/L 22-29 code = 355) BLOOD UREA 4 mg/dL 7-21 L NITROGEN (BEAKER) (test code = 354) CREATININE 0.69 mg/dL 0.57-1.25 (BEAKER) (test code = 358) GLUCOSE RANDOM 100 mg/dL 70-105 (BEAKER) (test code = 652) CALCIUM (BEAKER) 10.0 mg/dL 8.4-10.2 (test code = 697) AST (SGOT) 19 U/L 5-34 (BEAKER) (test code = 353) ALT (SGPT) 13 U/L 6-55 (BEAKER) (test code = 347) EGFR (BEAKER) 100 Interpretatio n of eGFR (test code = 1092) mL/min/1.[address] age Description sq m Result G1 Sharron l or high >=90 G2 Mildly decreased 60-89 G3a Mildl y to moderately 45-5 9 G3b Moderately to s everely 30-44 G4 Severl y decreased 15-29 G5 Kidney failure <15Reported eGF R is based on the CKD-EPI 2020 equation that d oes not use a race coefficientEsti mated GFR is not as accur ate as Creatinine Katherine antionette in predicting glom erular filtration rate . Estimated GFR is not appl icable for dialysis patien ts Joint Maker Machine ID - BSCBC W/PLT COUNT & AUTO [id number] 15:15:49 Test Item Value Reference Range Interpretation Comments WHITE BLOOD CELL COUNT (BEAKER) 6.5 K/ L 3.5-10.5 (test code = 775) RED BLOOD CELL COUNT (BEAKER) 4.78 M/ L 3.93-5.22 (test code = 761) HEMOGLOBIN (BEAKER) (test code = 14.4 GM/DL 11.2-15.7 410) HEMATOCRIT (BEAKER) (test code = 41.9 % 34.1-44.9 411) MEAN CORPUSCULAR VOLUME (BEAKER) 88 fL 79-95 (test code = 753) MEAN CORPUSCULAR HEMOGLOBIN 30.1 pg 25.6-32.2 (BEAKER) (test code = 751) MEAN CORPUSCULAR HEMOGLOBIN CONC 34.4 GM/DL 32.2-35.5 (BEAKER) (test code = 752) RED CELL DISTRIBUTION WIDTH 12.3 % 11.7-14.4 (BEAKER) (test code = 412) PLATELET COUNT (BEAKER) (test 194 K/CU MM 150-450 code = 756) MEAN PLATELET VOLUME (BEAKER) 10.4 fL 9.4-12.3 (test code = 754) NUCLEATED RED BLOOD CELLS 0 /100 WBC 0-0 (BEAKER) (test code = 413) NEUTROPHILS RELATIVE PERCENT 52 % (BEAKER) (test code = 429) LYMPHOCYTES RELATIVE PERCENT 42 % (BEAKER) (test code = 430) MONOCYTES RELATIVE PERCENT 5 % (BEAKER) (test code = 431) EOSINOPHILS RELATIVE PERCENT 1 % (BEAKER) (test code = 432) BASOPHILS RELATIVE PERCENT 0 % (BEAKER) (test code = 437) NEUTROPHILS ABSOLUTE COUNT 3.36 K/ L 1.56-6.13 (BEAKER) (test code = 670) LYMPHOCYTES ABSOLUTE COUNT 2.69 K/ L 1.18-3.74 (BEAKER) (test code = 414) MONOCYTES ABSOLUTE COUNT (BEAKER) 0.34 K/ L 0.24-0.36 (test code = 415) EOSINOPHILS ABSOLUTE COUNT 0.04 K/ L 0.04-0.36 (BEAKER) (test code = 416) BASOPHILS ABSOLUTE COUNT (BEAKER) 0.01 K/ L 0.01-0.08 (test code = 417) IMMATURE GRANULOCYTES-RELATIVE 0.20 % 0.00-1.00 PERCENT (BEAKER) (test code = 2801) [facility], MULTI, PHARM, [id number] 16:45:00Unlisted Reason for Exam - Click Yes and Enter Reason Below->No [facility] 1965 Sex: FFINAL REPORT PROCEDURE: Rest/Stress MYOCARDIAL PERFUSION SPECT with regadenoson\\XA9\\ CPT CODE: 64755 INDICATION: Chest pain R07.9 HISTORY: Cardiac risk factors: Hypertension, hyperlipidemia, tobacco. Other cardiovascular history: No reported CAD. PROTOCOL: 10.8 mCi of Tc-99m sestamibiwas injected iv at rest, and SPECT (tomographic) images were obtained. Also, 31.6 mCi of Tc-99m sestamibi was injected iv at expected peak pharmacologic effect, and gated SPECT images were obtained. PRELIMINARY STRESS TEST DATA FROM NONINVASIVE CARDIOLOGY: Pharmacologic stress was by 10-second iv infusion of 0.4 mg of regadenoson. Radiotracer was injected 30 seconds after start of stress. Heart ratewas 62 beats/min at rest and 96 beats/min (59 % of MPHR) at tracer injection. BP was 162/93 mmHg at rest and 133/83 mmHg at tracer injection. Stress was stopped for predetermined endpoint. The patient experienced dyspnea, flushing, and abdominal discomfort; treatment was not required. Preliminary ECG evaluation revealed sinus rhythm with RBBB and PVCs at rest and no ischemic changes with stress. (Final ECG interpretation and other stress and monitoring data are reported separately by Cardiology.) IMAGING FINDINGS: Study quality is good. Images obtained after rest and stress injections show normal LV activity. LV and RV volumes appear normal. Gated images obtained at rest after stress show normal LV wall motion and thickening. QGS LVEF is 64%. IMPRESSION: 1. Normal study. 2. Appropriate pharmacologic stress. 3. Normal myocardial perfusion. 4. Normal resting LV function. 5. Normal extracardiac tracer distribution. 6. No prior study. Signed: Ranjan Almaraz [facility] Verified Date/Time: 05/16/2022 16:45:53 APTT 2022-05-16 15:17:06 Test Item Value Reference Range Interpretation Comments PARTIAL THROMBOPLASTIN TIME 62.6 seconds 22.5-36.0 H (BEAKER) (test code = 760) [id number] 04:51:58 Test Item Value Reference Range Interpretation Comments MAGNESIUM (BEAKER) (test code = 1.8 mg/dL 1.6-2.6 627) Joint Maker Machine ID - PIAYA LBASIC METABOLIC [id number] 04:51:57 Test Item Value Reference Range Interpretation Comments SODIUM (BEAKER) 141 meq/L 136-145 (test code = 381) POTASSIUM 3.3 meq/L 3.5-5.1 L (BEAKER) (test code = 379) CHLORIDE (BEAKER) 105 meq/L 98-107 (test code = 382) CO2 (BEAKER) 28 meq/L 22-29 (test code = 355) BLOOD UREA 6 mg/dL 7-21 L NITROGEN (BEAKER) (test code = 354) CREATININE 0.65 mg/dL 0.57-1.25 (BEAKER) (test code = 358) GLUCOSE RANDOM 101 mg/dL 70-105 (BEAKER) (test code = 652) CALCIUM (BEAKER) 9.6 mg/dL 8.4-10.2 (test code = 697) EGFR (BEAKER) 101 Interpretati on of eGFR (test code = mL/min/1.73 values Stage De scription 1092) sq m Result G1 Sharron l or high >=90 G2 Mildly decreased 60-89 G3a Mildl y to moderately 45-5 9 G3b Moderately to s everely 30-44 G4 Severl y decreased 15-29 G5 Kidney failure <15Reported eGF R is based on the CKD-EPI 2020 equation that d oes not use a race coefficientEsti mated GFR is not as accur ate as Creatinine Katherine antionette in predicting glom erular filtration rate . Estimated GFR is not appl icable for dialysis patien ts Joint Maker Machine ID - PIAYA [id number] 04:32:03 Test Item Value Reference Range Interpretation Comments PARTIAL THROMBOPLASTIN TIME 46.8 seconds 22.5-36.0 H (BEAKER) (test code = 760) CBC (HEMOGRAM ONLY)2022-05-16 04:18:22 Test Item Value Reference Range Interpretation Comments WHITE BLOOD CELL COUNT (BEAKER) 6.2 K/ L 3.5-10.5 (test code = 775) RED BLOOD CELL COUNT (BEAKER) 4.27 M/ L 3.93-5.22 (test code = 761) HEMOGLOBIN (BEAKER) (test code = 12.9 GM/DL 11.2-15.7 410) HEMATOCRIT (BEAKER) (test code = 39.3 % 34.1-44.9 411) MEAN CORPUSCULAR VOLUME (BEAKER) 92.0 fL 79.4-94.8 (test code = 753) MEAN CORPUSCULAR HEMOGLOBIN 30.2 pg 25.6-32.2 (BEAKER) (test code = 751) MEAN CORPUSCULAR HEMOGLOBIN CONC 32.8 GM/DL 32.2-35.5 (BEAKER) (test code = 752) RED CELL DISTRIBUTION WIDTH 12.0 % 11.7-14.4 (BEAKER) (test code = 412) PLATELET COUNT (BEAKER) (test 167 K/CU MM 150-450 code = 756) MEAN PLATELET VOLUME (BEAKER) 10.4 fL 9.4-12.3 (test code = 754) NUCLEATED RED BLOOD CELLS 0 /100 WBC 0-0 (BEAKER) (test code = 413) [id number] 16:30:12 Test Item Value Reference Range Interpretation Comments PARTIAL THROMBOPLASTIN TIME 37.5 seconds 22.5-36.0 H (BEAKER) (test code = 760) [id number] 06:58:36 Test Item Value Reference Range Interpretation Comments PARTIAL THROMBOPLASTIN TIME 117.8 seconds 22.5-36.0 H (BEAKER) (test code = 760) CBC (HEMOGRAM ONLY)2022-05-15 05:57:49 Test Item Value Reference Range Interpretation Comments WHITE BLOOD CELL COUNT (BEAKER) 5.2 K/ L 3.5-10.5 (test code = 775) RED BLOOD CELL COUNT (BEAKER) 4.04 M/ L 3.93-5.22 (test code = 761) HEMOGLOBIN (BEAKER) (test code = 12.4 GM/DL 11.2-15.7 410) HEMATOCRIT (BEAKER) (test code = 36.7 % 34.1-44.9 411) MEAN CORPUSCULAR VOLUME (BEAKER) 90.8 fL 79.4-94.8 (test code = 753) MEAN CORPUSCULAR HEMOGLOBIN 30.7 pg 25.6-32.2 (BEAKER) (test code = 751) MEAN CORPUSCULAR HEMOGLOBIN CONC 33.8 GM/DL 32.2-35.5 (BEAKER) (test code = 752) RED CELL DISTRIBUTION WIDTH 11.9 % 11.7-14.4 (BEAKER) (test code = 412) PLATELET COUNT (BEAKER) (test 145 K/CU MM 150-450 L code = 756) MEAN PLATELET VOLUME (BEAKER) 10.5 fL 9.4-12.3 (test code = 754) NUCLEATED RED BLOOD CELLS 0 /100 WBC 0-0 (BEAKER) (test code = 413) HIGH SENSITIVITY TROPONIN [id number] 02:22:02 Test Item Value Reference Range Interpretation Comments HIGH SENSITIVITY 182 pg/ml See_Comment H [Automated message] TROPONIN I (test code The sy stem which = [id number]) generated this result transmitted ref erence range: <=17. Th e reference range was not used to int erpret this result as normal/abnormal . Joint Maker Machine ID - PIAYA LThe TURNING MACHINE SET UP OPERATOR STAT High Sensitivity Troponin-I results should be used in conjunction with other diagnostic information such as ECG, clinical observations and information, and patient symptoms to aid in the diagnosis of HI.SARS-CoV2/RT-PCR (Asymptomatic ONLY)2022-05-15 01:13:52 Test Item Value Reference Interpretation Comments Range SARS-COV2/RT-PCR Negative Negative The SARS-Co V-2 (test code = target nucleic 72000-5) acids are not detected in thi s specimen. Negat zackery results do not preclude SARS-C oV-2 infection and should not be u sed as the sole bas is for patient management decisions. Nega tive results must be combined with clinical observations, patient history , and epidemiolog ical information. A false negative result may occu r if a specimen is improperly collected, transported or handled. This S ARS CoV-2 test is a rapid, real-nuno e RT-PCR test intended for th e qualitative detection of nucleic acid fr om SARS-CoV-2 in a nasopharyngeal swab specimen colle ulysses from individual s suspected of COVID-19 by the ir healthcare provider. FAUZIA (test code = This test has been FAUZIA) authorized by FDA under an EUA for use by authorized laboratories. This test is only authorized for the duration of the declaration that circumstances exist justifying the authorization of emergency use of in vitro diagnostic tests for detection and/or diagnosis of COVID-19 under Section 564(b)(1) of the Federal Food, Drug and Cosmetic Act, 21 U.S.C. 360bbb-3(b)(1), unless the authorization is terminated or revoked sooner. Fact Sheet for Healthcare Providers: [email or web address] [email or web address] S%20CoV-[email or web address]/Fact%20S heets/[email or web address]%20S ARS-COV-2%20HEALTH CARE%20PROVIDERS%2 0FACT%20SHEET.pdf Fact Sheet for Healthcare Patients: https://www.[employer]/Documents/Xp ert%20Xpress%20SAR S%20CoV-2/Fact%20S heets/3023801%20S ARS-COV-2%20PATIEN T%20FACT%20SHEET.p df Lab Interpretation Normal (test code = 29738-8) [facility]2022-05-15 01:13:52 Test Item Value Reference Interpretation Comments Range SARS-COV2/RT-PCR Negative Negative The SARS-Co V-2 (test code = target nucleic 24633-1) acids are not detected in thi s specimen. Negat zackery results do not preclude SARS-C oV-2 infection and should not be u sed as the sole bas is for patient management decisions. Nega tive results must be combined with clinical observations, patient history , and epidemiolog ical information. A false negative result may occu r if a specimen is improperly collected, transported or handled. This S ARS CoV-2 test is a rapid, real-nuno e RT-PCR test intended for th e qualitative detection of nucleic acid fr om SARS-CoV-2 in a nasopharyngeal swab specimen collec ulysses from individual s suspected of COVID-19 by the ir healthcare provider. FAUZIA (test code = This test has been FAUZAI) authorized by FDA under an EUA for use by authorized laboratories. This test is only authorized for the duration of the declaration that circumstances exist justifying the authorization of emergency use of in vitro diagnostic tests for detection and/or diagnosis of COVID-19 under Section 564(b)(1) of the Federal Food, Drug and Cosmetic Act, 21 U.S.C. 360bbb-3(b)(1), unless the authorization is terminated or revoked sooner. Fact Sheet for Healthcare Providers: https://www.[employer]/Documents/Xp ert%20Xpress%20SAR S%20CoV-2/Fact%20S heets/3023802%20S ARS-COV-2%20HEALTH CARE%20PROVIDERS%2 0FACT%20SHEET.pdf Fact Sheet for Healthcare Patients: https://www.[employer]/Documents/Xp ert%20Xpress%20SAR S%20CoV-2/Fact%20S heets/302-3801%20S ARS-COV-2%20PATIEN T%20FACT%20SHEET.p df Lab Interpretation Normal (test code = 84828-8) [facility])2022-05-15 01:13:52 Test Item Value Reference Range Interpretation Comments SARS-COV2/RT-PCR Negative Negative The SARS-Co V-2 target (test code = nucleic acids a re not 4719310) detected in thi s specimen. Negative result s do not preclude SARS-C oV-2 infection and s hould not be used as the krystle e basis for patient managem ent decisions. Nega tive results must be combine d with clinical observ ations, patient history , and epidemiological information. A false negativ e result may occur if a spec imen is improperly wendi ected, transported or handled. This SARS CoV-2 test is a rapid, real-time RT-PC R test intended for th e qualitative detection of nu cleic acid from SARS-CoV-2 in a nasopharyngeal swab specimen collected from individuals suspected of CO VID-19 by their healthcar e provider. This test has been authorized by FDA under an EUA for use by authorized laboratories. This test is only authorized for the duration of the declaration that circumstances exist justifying the authorization of emergency use of in vitro diagnostic tests for detection and/or diagnosis of COVID-19 under Section 564(b)(1) of the Federal Food, Drug and Cosmetic Act, 21 U.S.C. 360bbb-3(b)(1), unless the authorization is terminated or revoked sooner. Fact Sheet for Healthcare Providers: https://www.[employer] m/Documents/Xpert%20Xpress%20SARS%20CoV-2/Fact%20Sheets/302-3802%88LZRE-HKJ-6%20 HEALTHCARE%20PROVIDERS%20FACT%20SHEET.pdf Fact Sheet for Healthcare Patients: https://www.[employer]/Documents/Xpert%20Xp ress%20SARS%20CoV-2/Fact%20Sheets/302-3801%68DMLR-OEE-8%20PATIENT%20FACT%20SHEET .pdfHIGH SENSITIVITY TROPONIN [id number] 23:36:40 Test Item Value Reference Range Interpretation Comments HIGH SENSITIVITY 148 pg/ml See_Comment H [Automated message] TROPONIN I (test code The sy stem which = [id number]) generated this result transmitted ref erence range: <=17. Th e reference range was not used to int erpret this result as normal/abnormal . Joint Maker Machine ID - PIAYA LThe TURNING MACHINE SET UP OPERATOR STAT High Sensitivity Troponin-I results should be used in conjunction with other diagnostic information such as ECG, clinical observations and information, and patient symptoms to aid in the diagnosis of HI.[id number] 23:35:01 Test Item Value Reference Range Interpretation Comments PARTIAL THROMBOPLASTIN TIME 36.2 seconds 22.5-36.0 H (BEAKER) (test code = 760) [id number] 23:33:40 Test Item Value Reference Range Interpretation Comments PARTIAL THROMBOPLASTIN TIME 35.9 seconds 22.5-36.0 (BEAKER) (test code = 760) LIPID [id number] 23:31:17 Test Item Value Reference Range Interpretation Comments TRIGLYCERIDES (BEAKER) 300 mg/dL Speci men slightly (test code = 540) hemolyzed CHOLESTEROL (BEAKER) 157 mg/dL Specime n slightly (test code = 631) hemolyzed HDL CHOLESTEROL (BEAKER) 30 mg/dL (test code = 976) LDL CHOLESTEROL 67 mg/dL CALCULATED (BEAKER) (test code = 633) Triglyceride Reference Range: Low Risk <150 Borderline 150-199 High Risk 200- 499 Very High Risk >=500Cholesterol Reference Range: Low Risk <200 Borderline 200-239 High Risk >240HDL Cholesterol Reference Range: Low Risk >=60 High Risk <40LDL Cholesterol Reference Range: Optimal <100 Near Optimal 100-129 Borderline 130-159 High 160-189 Very High >=190 Joint Maker Machine ID - DANUTA MPLATELET [id number] 23:02:35 Test Item Value Reference Range Interpretation Comments PLATELET COUNT (BEAKER) (test 166 K/CU MM 150-450 code = 756) Joint Maker Machine ID - [id number] SENSITIVITY TROPONIN [id number] 19:17:02 Test Item Value Reference Range Interpretation Comments HIGH SENSITIVITY 57 pg/ml See_Comment H [Automated message] TROPONIN I (test code = The system which [id number]) generated this result transmitted ref erence range: <=17. Th e reference range was not used to int erpret this result as normal/abnormal . Joint Maker Machine ID - DANUTA JLGOVe TURNING MACHINE SET UP OPERATOR STAT High Sensitivity Troponin-I results should be used in conjunction with other diagnostic information such as ECG, clinical observations and information, and patient symptoms to aid in the diagnosis of HI.HIGH SENSITIVITY TROPONIN [id number] 17:36:27 Test Item Value Reference Range Interpretation Comments HIGH SENSITIVITY 22 pg/ml See_Comment H [Automated message] TROPONIN I (test code = The system which [id number]) generated this result transmitted ref erence range: <=17. Th e reference range was not used to int erpret this result as normal/abnormal . Joint Maker Machine ID - DANUTA JLGOVe [employer] STAT High Sensitivity Troponin-I results should be used in conjunction with other diagnostic information such as ECG, clinical observations and information, and patient symptoms to aid in the diagnosis of HI.COMPREHENSIVE METABOLIC [id number] 17:29:31 Test Item Value Reference Range Interpretation Comments TOTAL PROTEIN 7.4 gm/dL 6.0-8.3 (BEAKER) (test code = 770) ALBUMIN (BEAKER) 4.3 g/dL 3.5-5.0 (test code = 1145) ALKALINE 144 U/L 40-150 PHOSPHATASE (BEAKER) (test code = 346) BILIRUBIN TOTAL 0.6 mg/dL 0.2-1.2 (BEAKER) (test code = 377) SODIUM (BEAKER) 142 meq/L 136-145 (test code = 381) POTASSIUM (BEAKER) 3.8 meq/L 3.5-5.1 (test code = 379) CHLORIDE (BEAKER) 107 meq/L 98-107 (test code = 382) CO2 (BEAKER) (test 23 meq/L 22-29 code = 355) BLOOD UREA 5 mg/dL 7-21 L NITROGEN (BEAKER) (test code = 354) CREATININE 0.65 mg/dL 0.57-1.25 (BEAKER) (test code = 358) GLUCOSE RANDOM 102 mg/dL 70-105 (BEAKER) (test code = 652) CALCIUM (BEAKER) 10.0 mg/dL 8.4-10.2 (test code = 697) AST (SGOT) 18 U/L 5-34 (BEAKER) (test code = 353) ALT (SGPT) 8 U/L 6-55 (BEAKER) (test code = 347) EGFR (BEAKER) 101 Interpretatio n of eGFR (test code = 1092) mL/min/1.[address] age Description sq m Result G1 Sharron l or high >=90 G2 Mildly decreased 60-89 G3a Mild ly to moderately 45-5 9 G3b Moderately to s everely 30-44 G4 Severl y decreased 15-29 G5 Kidney failure <15Reported eGF R is based on the CKD-EPI 2020 equation that d oes not use a race coefficientEsti mated GFR is not as accur ate as Creatinine Katherine antionette in predicting glom erular filtration rate . Estimated GFR is not appl icable for dialysis patien ts Joint Maker Machine ID - DANUTA MCBC W/PLT COUNT & AUTO [id number] 17:18:57 Test Item Value Reference Range Interpretation Comments WHITE BLOOD CELL COUNT (BEAKER) 8.8 K/ L 3.5-10.5 (test code = 775) RED BLOOD CELL COUNT (BEAKER) 4.52 M/ L 3.93-5.22 (test code = 761) HEMOGLOBIN (BEAKER) (test code = 13.9 GM/DL 11.2-15.7 410) HEMATOCRIT (BEAKER) (test code = 40.1 % 34.1-44.9 411) MEAN CORPUSCULAR VOLUME (BEAKER) 88.7 fL 79.4-94.8 (test code = 753) MEAN CORPUSCULAR HEMOGLOBIN 30.8 pg 25.6-32.2 (BEAKER) (test code = 751) MEAN CORPUSCULAR HEMOGLOBIN CONC 34.7 GM/DL 32.2-35.5 (BEAKER) (test code = 752) RED CELL DISTRIBUTION WIDTH 11.8 % 11.7-14.4 (BEAKER) (test code = 412) PLATELET COUNT (BEAKER) (test 198 K/CU MM 150-450 code = 756) MEAN PLATELET VOLUME (BEAKER) 10.4 fL 9.4-12.3 (test code = 754) NUCLEATED RED BLOOD CELLS 0 /100 WBC 0-0 (BEAKER) (test code = 413) NEUTROPHILS RELATIVE PERCENT 48 % (BEAKER) (test code = 429) LYMPHOCYTES RELATIVE PERCENT 43 % (BEAKER) (test code = 430) MONOCYTES RELATIVE PERCENT 7 % (BEAKER) (test code = 431) EOSINOPHILS RELATIVE PERCENT 1 % (BEAKER) (test code = 432) BASOPHILS RELATIVE PERCENT 0 % (BEAKER) (test code = 437) NEUTROPHILS ABSOLUTE COUNT 4.23 K/ L 1.56-6.13 (BEAKER) (test code = 670) LYMPHOCYTES ABSOLUTE COUNT 3.79 K/ L 1.18-3.74 H (BEAKER) (test code = 414) MONOCYTES ABSOLUTE COUNT (BEAKER) 0.64 K/ L 0.24-0.36 H (test code = 415) EOSINOPHILS ABSOLUTE COUNT 0.08 K/ L 0.04-0.36 (BEAKER) (test code = 416) BASOPHILS ABSOLUTE COUNT (BEAKER) 0.02 K/ L 0.01-0.08 (test code = 417) IMMATURE GRANULOCYTES-RELATIVE 0 % 0-1 PERCENT (BEAKER) (test code = 2801) RAD, CHEST, 2 [id number] 16:44:00Reason for exam:->r/o [facility] 1965 Sex: FFINAL REPORT INDICATION: r/o ACS COMPARISON: None TECHNIQUE: AP and lateral view ofthe chest. FINDINGS: Lungs and pleura: Clear lungs. No effusion.Heart and mediastinum: Normal heart size. Unremarkable mediastinal contours.Osseous structures: No acute abnormality.Other: None. IMPRESSION: No acute intrathoracic abnormality. Signed: Alyssia Nelson MDReport Verified Date/Time: 05/14/2022 16:44:29 COMPREHENSIVE METABOLIC [id number] 05:15:00 Test Item Value Reference Range Interpretation Comments SODIUM (test code = NA) 140 mmol/L 134-147 N POTASSIUM (test code = 3.8 mmol/L 3.4-5.0 N K) CHLORIDE (test code = 104 mmol/L 100-108 N CL) CARBON DIOXIDE (test 35 mmol/L 21-32 H code = CO2) ANION GAP (test code = 1.0 GAP calc 4.0-15.0 L GAP) GLUCOSE (test code = 108 MG/DL 70-110 N GLU) BLOOD UREA NITROGEN 8 MG/DL 7-18 N (test code = BUN) GLOMERULAR FILTRATION >=60 max estimate >60 RATE (test code = GFR) estGFR CREATININE (test code = 0.6 MG/DL 0.6-1.0 N CREAT) TOTAL PROTEIN (test code 6.9 G/DL 6.4-8.2 N = PROT) ALBUMIN (test code = 3.4 G/DL 3.4-5.0 N ALB) GLOBULIN (test code = 3.5 GM/dL GLOB) ALBUMIN/GLOBULIN RATIO 1.0 RATIO 1.2-2.2 L (test code = A/G) CALCIUM (test code = CA) 8.9 MG/DL 8.5-10.1 N BILIRUBIN TOTAL (test 0.50 MG/DL 0.2-1.2 N code = BILT) SGOT/AST (test code = 59 Unit/L 15-37 H AST) SGPT/ALT (test code = 102 Unit/L 12-78 H ALT) ALKALINE PHOSPHATASE 88 Unit/L 45-117 N TOTAL (test code = ALKP) GLUCOSE BEDSIDE [id number] 19:48:00 Test Item Value Reference Range Interpretation Comments GLUCOSE BEDSIDE TESTING (test code = 98 mg/dL 70-110 N GLUBED) - XR SMALL [id number] 19:38:00 [facility] 1965 Sex: F Name: RO MAYNARD [facility] : 1965 Age/S: 56 / F [address] [place] Unit #: [id number] Loc: [place] [address] Phys: Dawson Ramírez MD Acct: [id number] Dis Date: Status: ADM IN PHONE #: [phone] Exam Date: 2021 190 FAX #: Reason: evaluate for Crohn's EXAMS: CPT: [id number] XR S MALL BOWEL 82575 Fluoro Time: 0 DAP (Gy m2): Air Kerma (mGy): Location of dictation: H 14 Small bowel follow-through: HISTORY: Right upper quadrant pain, evaluate for Crohn's disease. 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 No radiopaque densities noted. Linear opacity left lungbase likely atelectasis or scarring. Kyphoplasty L2 with mild dextroscoliosis of the lumbar spine. Sequential images were obtained after oral administration of contrast. Transit time to the colon was between 1 and 2 hours. Small bowel loops including the terminal ileum demonstrate normal mucosal pattern. There is no evidence for obstruction. No intrinsic or extrinsic abnormality seen. The right colonalso appears unremarkable. IMPRESSION: 1. No evidence for bowel obstruction. 2. Normal appearance ofsmall bowel with no evidence to suggest Crohn's disease. Electronically Signed by Darlin Pikn 2021 at 1938 Reported and signed by: Guera Moore M.D. CC: Jaiden Antunez MD; Shawna Escalante MD; Dawson Ramírez MD PAGE 1 Signed Report [facility]: [facility] [place] [facility] 1965 Age/S: 56 / F [address] Unit #: [id number] Loc: [place] [address] Phys: Dawson Ramírez MD Acct: [id number] Dis Date: Status: ADM IN PHONE #: [phone] Exam Date: 2021 1900 FAX #: Reason: evaluate for Crohn's EXAMS: CPT: [id number] XR SMALL BOWEL 06103 Fluoro Time: 0 DAP (Gy m2): Air Kerma (mGy): (Continued) Technologist: Zainab Moran, RT(R)(CT)(MRI) Trnscb Date/Time: 2021 (1937) [email or web address] Orig Print D/T: S: 2021 (1941) PAGE 2 Signed ReportGLUCOSE BEDSIDE [id number] 17:05:00 Test Item Value Reference Range Interpretation Comments GLUCOSE BEDSIDE TESTING (test code 148 mg/dL 70-110 H = GLUBED) - HEPA IMAG INCL GB W [id number] 16:10:00 [facility] : 1965 Sex: F FAX: Jaiden Huff MD [phone] Camps: PM St: ADM FAX: Shawna Scott MD [phone] FAX: Dawson Hodge MD [phone] Name: RO MAYNARD : 1965 Age/S: 56/F [address] [place] Unit #: [id number] Loc: [place] [address] Phys: Dawson Ramírez MD Acct: [id number] Dis Date: Status:ADM IN PHONE #: [phone] Exam Date: 2021 9354 FAX #: Reason: RUQ pain EXAMS: CPT: [id number] HEPA IMAG INCL GB W PHA 34707 EXAMINATION: Nuclear medicine hepatobiliary scan with ejection fraction determination INDICATION: RUQ pain COMPARISON: MRCP previous day LOCATION: S17 TECHNIQUE: Dynamicimaging was obtained of the upper abdomen following the administration of 5.2 mCi Tc-99m Choletec IV. Ejection fraction was determined following gallbladder stimulation with fatty meal (8 ounces of Ensure). FINDINGS: After the administration of tracer, relatively prompt hepatic uptake is seen. This isfollowed by biliary excretion and subsequent passage of tracer into the gallbladder and small bowel.Gallbladder ejection fraction is determined to be 62% at 60 minutes, within normal limits. IMPRESSION: 1. Scintigraphically patent cystic and common bile ducts. 2. Normal gallbladder ejection fraction. at 1610 Reported and signed by: Nathan Lujan M.D. CC: Jaiden Antunez MD; Shawna Escalante MD; Dawson Ramírez MD Technologist: MANUEL Kevin Transcribed Date/Time/By: 2021 (0480) :[email or web address] Orig Print D/T: S: 2021 (4206) PAGE 1 Signed ReportGLUCOSE BEDSIDE [id number] 11:56:00 Test Item Value Reference Range Interpretation Comments GLUCOSE BEDSIDE TESTING (test code 131 mg/dL 70-110 H = GLUBED) CBC W/AUTO [id number] 06:20:00 Test Item Value Reference Range Interpretation [...] NT WITH AUTO DIFFERENTI AL. COMPREHENSIVE METABOLIC [id number] 04:48:00 Test Item Value Reference Range Interpretation [...] 45-117 N TOTAL (test code = ALKP) [id number] 04:48:00 Test Item Value Reference Range Interpretation Comments PHOSPHOROUS (test code = PHOS) 3.8 MG/DL 2.5-4.9 N [id number] 04:48:00 Test Item Value Reference Range Interpretation Comments MAGNESIUM (test code = MAG) 2.1 MG/DL 1.8-2.4 N COMPREHENSIVE METABOLIC [id number] 04:46:00 Test Item Value Reference Range Interpretation [...] TOTAL (test Unit/L 45-117 code = ALKP) [id number] 04:46:00 Test Item Value Reference Range Interpretation Comments PHOSPHOROUS (test code = PHOS) MG/DL 2.5-4.9 [id number] 04:46:00 Test Item Value Reference Range Interpretation Comments MAGNESIUM (test code = MAG) MG/DL 1.8-2.4 [id number] 04:46:00 Test Item Value Reference Range Interpretation [...] may dexter yby method. Completed by Nursing: [id number] 04:46:00 Test Item Value Reference Range Interpretation Comments ALCOHOL (test code = ALC) < 3 MG/DL 0-10 N Completed by Nursing: NOCBC W/AUTO [id number] 04:36:00 Test Item Value Reference Range Interpretation [...] DIFF/SCN CRITERIA MDIFF) DRUGS OF ABUSE SCREEN [id number] 21:43:00 Test Item Value Reference Range Interpretation [...] this result as normal/abnormal . - MRI [id number] 19:05:00 [facility] : 1965 Sex: F FAX: Jaiden Huff MD [phone] Camps: PM St: ADM FAX: Shawna Scott MD [phone] Name: RO MAYNARD [facility] : 1965 Age/S: 55/F [address] [place] Unit #: [id number] Loc: [place] [address] Phys: Jaiden Antunez MD Acct: [id number] Dis Date: Status: ADM IN PHONE #: [phone] Exam Date: 4835 FAX #: Reason: deranged lfts, ruq pain EXAMS: CPT: [id number] MRI MRCP 20065 Location:H 31 MRI ABDOMEN WITHOUT CONTRAST/M HEMODIALYSIS PATIENT CARE SPECIALIST HISTORY: Abnormal LFTs. Right upper quadrant pain COMPARISON: None available TECHNIQUE: [...] normal size Kidneys and adrenal glands demonstrate noacute findings. Pancreas is mildly atrophic. Pancreatic duct is visualized without significant dilatation or side branch ectasia. No evidence of ascites. No bowel obstruction. IMPRESSION: 1. No evidence of cholelithiasis or cholecystitis. 2. No evidence of choledocholithiasis. No biliary dilatation. at 1905 Reported and signed by: Sandi Redding MD CC: Jaiden Antunez MD; Shawna Escalante MD Technologist: RT Selvin(R)(CT) Transcribed Date/Time/By: 02/25/2021 (1904) :[email or web address] Orig Print D/T: S: 02/25/2021 (1907) PAGE 1 Signed Report COVID 19 INHOUSE [id number] 16:22:00 Test Item Value Reference Range Interpretation Comments COVID 19 INHOUSE AG NEGATIVE Negative Per [facility] facturer, (test code = negative result s should [id number]) be treated aspr esumptive and, if inconsi [...] symptoms co nsistent with COVID-19. CBC W/AUTO [id number] 15:38:00 Test Item Value Reference Range Interpretation [...] WITH AUTO DIFFERENTIAL.NO PLT CLUMPS OBSERVED RBC [id number] 15:38:00 Test Item Value Reference Range Interpretation Comments PLATELET ESTIMATE (test ADEQUATE THOUSAND ADEQUATE code = PLTEST) PLATELET MORPHOLOGY (test NORMAL code = PLTMORPH) CBC W/AUTO [id number] 15:33:00 Test Item Value Reference Range Interpretation [...] code DIFF/SCN CRITERIA = MDIFF) CBC W/AUTO [id number] 15:33:00 Test Item Value Reference Range Interpretation [...] code DIFF/SCN CRITERIA = MDIFF) BASIC METABOLIC [id number] 14:26:00 Test Item Value Reference Range Interpretation [...] CA) 8.7 MG/DL 8.5-10.1 N HEPATIC FUNCTION [id number] 14:26:00 Test Item Value Reference Range Interpretation [...] 93 Unit/L 45-117 N code = ALKP) [id number] 14:26:00 Test Item Value Reference Range Interpretation Comments LIPASE (test code = LIP) 95 Unit/L 114-286 L UA RFLX MICR CULT IF [id number] 14:10:00 Test Item Value Reference Range Interpretation [...] code = UACULT) Indication for culture: RiskForSepsis-no [facility] W/AUTO [id number] 14:04:00 Test Item Value Reference Range Interpretation [...] (test code = DIFF/SCN CRITERIA MDIFF) CHEM [id number] 14:26:00 Test Item Value Reference Range Interpretation Comments BUN (test code = BUN) 8 7-22 [facility]2014-09-22 14:26:00 Test Item Value Reference Range Interpretation Comments Glucose Lvl (test code = Glucose Lvl) 91 70-99 [facility] [id number] 14:26:00 Test Item Value Reference Range Interpretation Comments CO2 (test code = CO2) 29 24-32 [facility] [id number] 14:26:00 Test Item Value Reference Range Interpretation Comments AGAP (test code = AGAP) 6.7 10.0-20.0 [facility] [id number] 14:26:00 Test Item Value Reference Range Interpretation Comments eGFR (test code = eGFR) 86 [facility] [id number] 14:26:00 Test Item Value Reference Range Interpretation Comments Creatinine Lvl (test code = Creatinine 0.8 0.5-1.4 Lvl) [facility] [id number] 14:26:00 Test Item Value Reference Range Interpretation Comments Chloride Lvl (test code = Chloride Lvl) 104 95-109 [facility] [id number] 14:26:00 Test Item Value Reference Range Interpretation Comments Potassium Lvl (test code = Potassium 3.7 3.5-5.1 Lvl) [facility]2014-09-22 14:26:00 Test Item Value Reference Range Interpretation Comments Sodium Lvl (test code = Sodium Lvl) 136 135-145 [facility]2014-09-22 14:26:00 Test Item Value Reference Range Interpretation Comments Calcium Lvl (test code = Calcium Lvl) 9.7 8.5-10.5 [facility] [id number] 14:26:00 Test Item Value Reference Range Interpretation Comments MCV (test code = MCV) 101.6 80.0-98.0 [facility] Cent[id number] 14:26:00 Test Item Value Reference Range Interpretation Comments MCH (test code = MCH) 35.5 pg 27.0-31.0 [facility] [id number] 14:26:00 Test Item Value Reference Range Interpretation Comments Hgb (test code = Hgb) 13.3 12.0-16.0 [facility] C[id number] 14:26:00 Test Item Value Reference Range Interpretation Comments Hct (test code = Hct) 37.9 36.0-48.0 [facility] [id number] 14:26:00 Test Item Value Reference Range Interpretation Comments RBC (test code = RBC) 3.73 4.20-5.40 [facility] [id number] 14:26:00 Test Item Value Reference Range Interpretation Comments WBC (test code = WBC) 6.1 3.7-10.4 [facility] [id number] 14:26:00 Test Item Value Reference Range Interpretation Comments MPV (test code = MPV) 8.0 7.4-10.4 [facility] CenterDmzgqeaYZXAESYBZR1112-58-01 14:26:00 Test Item Value Reference Range Interpretation Comments RDW (test code = RDW) 17.2 11.5-14.5 [facility] [id number] 14:26:00 Test Item Value Reference Range Interpretation Comments Platelet (test code = Platelet) 223 133-450 [facility] C[id number] 14:26:00 Test Item Value Reference Range Interpretation Comments MCHC (test code = MCHC) 35.0 32.0-36.0 [facility] [id number] 14:26:00 Test Item Value Reference Range Interpretation Comments INR (test code = INR) 0.93 0.85-1.17 [facility] [id number] 14:26:00 Test Item Value Reference Range Interpretation Comments PT (test code = PT) 12.4 s 12.0-14.7 [facility]2014-09-22 14:26:00 Test Item Value Reference Range Interpretation Comments BUN (test code = BUN) 8 7- [facility]2014-09-22 14:26:00 Test Item Value Reference Range Interpretation Comments Glucose Lvl (test code = Glucose Lvl) 91 70-99 [facility]2014-09-22 14:26:00 Test Item Value Reference Range Interpretation Comments CO2 (test code = CO2) 29 24-32 [facility]2014-09-22 14:26:00 Test Item Value Reference Range Interpretation Comments AGAP (test code = AGAP) 6.7 10.0-20.0 [facility]2014-09-22 14:26:00 Test Item Value Reference Range Interpretation Comments eGFR (test code = eGFR) 86 [facility]2014-09-22 14:26:00 Test Item Value Reference Range Interpretation Comments Creatinine Lvl (test code = Creatinine 0.8 0.5-1.4 Lvl) [facility]2014-09-22 14:26:00 Test Item Value Reference Range Interpretation Comments Chloride Lvl (test code = Chloride Lvl) 104 95-109 [facility]2014-09-22 14:26:00 Test Item Value Reference Range Interpretation Comments Potassium Lvl (test code = Potassium 3.7 3.5-5.1 Lvl) [facility]2014-09-22 14:26:00 Test Item Value Reference Range Interpretation Comments Sodium Lvl (test code = Sodium Lvl) 136 135-145 [facility]2014-09-22 14:26:00 Test Item Value Reference Range Interpretation Comments Calcium Lvl (test code = Calcium Lvl) 9.7 8.5-10.5 [facility] CenterZapfuarTJCCKPMFZB5022-99-51 14:26:00 Test Item Value Reference Range Interpretation Comments MCV (test code = MCV) 101.6 80.0-98.0 [facility]8143[facility] 14:26:00 Test Item Value Reference Range Interpretation Comments MCH (test code = MCH) 35.5 pg 27.0-31.0 [facility] CenterCbovtcbVRFGTYHGBS7486-41-89 14:26:00 Test Item Value Reference Range Interpretation Comments Hgb (test code = Hgb) 13.3 12.0-16.0 [facility] CenterUdlvnrhXFWFKVVVLA1139-73-01 14:26:00 Test Item Value Reference Range Interpretation Comments Hct (test code = Hct) 37.9 36.0-48.0 [facility] CenterDdnbccvDTZCMFSQSH6347-50-74 14:26:00 Test Item Value Reference Range Interpretation Comments RBC (test code = RBC) 3.73 4.20-5.40 [facility] CenterZlhlceoDNUMZCNYQM1751-54-97 14:26:00 Test Item Value Reference Range Interpretation Comments WBC (test code = WBC) 6.1 3.7-10.4 [facility] CenterRcbdpfuAZZOILGGUC9085-33-70 14:26:00 Test Item Value Reference Range Interpretation Comments MPV (test code = MPV) 8.0 7.4-10.4 [facility] CenterZxnfcrtHBSHYQCNIL1318-03-29 14:26:00 Test Item Value Reference Range Interpretation Comments RDW (test code = RDW) 17.2 11.5-14.5 [facility] CenterChgxghzGUTSIIVRJW6595-20-69 14:26:00 Test Item Value Reference Range Interpretation Comments Platelet (test code = Platelet) 223 133-450 [facility] CenterMuuigbsOBSCPRSILC2623-79-08 14:26:00 Test Item Value Reference Range Interpretation Comments MCHC (test code = MCHC) 35.0 32.0-36.0 [facility] CenterWbrdlldQCBOTVYPBK6397-34-78 14:26:00 Test Item Value Reference Range Interpretation Comments INR (test code = INR) 0.93 0.85-1.17 [facility] CenterRfymejlHCDHMEKMPB6429-85-31 14:26:00 Test Item Value Reference Range Interpretation Comments PT (test code = PT) 12.4 s 12.0-14.7 [facility]2014-09-22 14:26:00 Test Item Value Reference Range Interpretation Comments BUN (test code = BUN) 8 7-22 [facility]2014-09-22 14:26:00 Test Item Value Reference Range Interpretation Comments Glucose Lvl (test code = Glucose Lvl) 91 70-99 [facility]2014-09-22 14:26:00 Test Item Value Reference Range Interpretation Comments CO2 (test code = CO2) 29 24-32 [facility]2014-09-22 14:26:00 Test Item Value Reference Range Interpretation Comments AGAP (test code = AGAP) 6.7 10.0-20.0 [facility]2014-09-22 14:26:00 Test Item Value Reference Range Interpretation Comments eGFR (test code = eGFR) 86 [facility]2014-09-22 14:26:00 Test Item Value Reference Range Interpretation Comments Creatinine Lvl (test code = Creatinine 0.8 0.5-1.4 Lvl) [facility]2014-09-22 14:26:00 Test Item Value Reference Range Interpretation Comments Chloride Lvl (test code = Chloride Lvl) 104 95-109 [facility]2014-09-22 14:26:00 Test Item Value Reference Range Interpretation Comments Potassium Lvl (test code = Potassium 3.7 3.5-5.1 Lvl) [facility]2014-09-22 14:26:00 Test Item Value Reference Range Interpretation Comments Sodium Lvl (test code = Sodium Lvl) 136 135-145 [facility]2014-09-22 14:26:00 Test Item Value Reference Range Interpretation Comments Calcium Lvl (test code = Calcium Lvl) 9.7 8.5-10.5 [facility] CenterVccpvoqALOCUGLTNZ1606-57-79 14:26:00 Test Item Value Reference Range Interpretation Comments MCV (test code = MCV) 101.6 80.0-98.0 [facility] CenterSibfyszTXIHLNOHEW9883-95-94 14:26:00 Test Item Value Reference Range Interpretation Comments MCH (test code = MCH) 35.5 pg 27.0-31.0 [facility] CenterSixthpwNNDIGAWLDF8244-13-04 14:26:00 Test Item Value Reference Range Interpretation Comments Hgb (test code = Hgb) 13.3 12.0-16.0 [facility] CenterCkcvnpqIIAXVDGLRA0894-01-43 14:26:00 Test Item Value Reference Range Interpretation Comments Hct (test code = Hct) 37.9 36.0-48.0 [facility] CenterPiwlpwqTKEPLSVEYT6882-08-35 14:26:00 Test Item Value Reference Range Interpretation Comments RBC (test code = RBC) 3.73 4.20-5.40 [facility] CenterOyigfosDKCUDBEDOT0607-70-63 14:26:00 Test Item Value Reference Range Interpretation Comments WBC (test code = WBC) 6.1 3.7-10.4 [facility] CenterJaxecvvJLPSPZYKGC2764-63-42 14:26:00 Test Item Value Reference Range Interpretation Comments MPV (test code = MPV) 8.0 7.4-10.4 [facility] CenterNrkejpcEVSYLQROFZ0397-47-01 14:26:00 Test Item Value Reference Range Interpretation Comments RDW (test code = RDW) 17.2 11.5-14.5 [facility] CenterRmhtyowNYVKWJUEKB6108-85-70 14:26:00 Test Item Value Reference Range Interpretation Comments Platelet (test code = Platelet) 223 133-450 [facility] CenterHbejrkhXCQNHITYKO0398-44-59 14:26:00 Test Item Value Reference Range Interpretation Comments MCHC (test code = MCHC) 35.0 32.0-36.0 [facility] CenterNhkgshoYSSVYHWPCI9727-17-84 14:26:00 Test Item Value Reference Range Interpretation Comments INR (test code = INR) 0.93 0.85-1.17 [facility] CenterDkzmcicVADPVMDGOW9183-40-76 14:26:00 Test Item Value Reference Range Interpretation Comments PT (test code = PT) 12.4 s 12.0-14.7 [facility]2014-09-22 14:26:00 Test Item Value Reference Range Interpretation Comments BUN (test code = BUN) 8 7-22 [facility]2014-09-22 14:26:00 Test Item Value Reference Range Interpretation Comments Glucose Lvl (test code = Glucose Lvl) 91 70-99 [facility]2014-09-22 14:26:00 Test Item Value Reference Range Interpretation Comments CO2 (test code = CO2) 29 24-32 [facility]2014-09-22 14:26:00 Test Item Value Reference Range Interpretation Comments AGAP (test code = AGAP) 6.7 10.0-20.0 [facility]2014-09-22 14:26:00 Test Item Value Reference Range Interpretation Comments eGFR (test code = eGFR) 86 [facility]2014-09-22 14:26:00 Test Item Value Reference Range Interpretation Comments Creatinine Lvl (test code = Creatinine 0.8 0.5-1.4 Lvl) [facility]2014-09-22 14:26:00 Test Item Value Reference Range Interpretation Comments Chloride Lvl (test code = Chloride Lvl) 104 95-109 [facility]2014-09-22 14:26:00 Test Item Value Reference Range Interpretation Comments Potassium Lvl (test code = Potassium 3.7 3.5-5.1 Lvl) [facility]2014-09-22 14:26:00 Test Item Value Reference Range Interpretation Comments Sodium Lvl (test code = Sodium Lvl) 136 135-145 [facility]2014-09-22 14:26:00 Test Item Value Reference Range Interpretation Comments Calcium Lvl (test code = Calcium Lvl) 9.7 8.5-10.5 [facility] CenterGzmzlapOIEMKOSHKA2526-22-03 14:26:00 Test Item Value Reference Range Interpretation Comments MCV (test code = MCV) 101.6 80.0-98.0 [place] 732984-09-22 14:26:00 Test Item Value Reference Range Interpretation Comments MCH (test code = MCH) 35.5 pg 27.0-31.0 [facility] CenterEyvihskBPXWXICXTD0249-87-68 14:26:00 Test Item Value Reference Range Interpretation Comments Hgb (test code = Hgb) 13.3 12.0-16.0 [facility] CenterIzpuewaWESDDAMESO0055-39-07 14:26:00 Test Item Value Reference Range Interpretation Comments Hct (test code = Hct) 37.9 36.0-48.0 [facility] CenterKpogqkqLZAMAJLHTV9596-11-67 14:26:00 Test Item Value Reference Range Interpretation Comments RBC (test code = RBC) 3.73 4.20-5.40 [facility] CenterMubmwcuPSVKVPWLPQ6723-33-24 14:26:00 Test Item Value Reference Range Interpretation Comments WBC (test code = WBC) 6.1 3.7-10.4 [place] 732984-09-22 14:26:00 Test Item Value Reference Range Interpretation Comments MPV (test code = MPV) 8.0 7.4-10.4 [facility] CenterRghpirnJEKWHAKOCY1389-50-69 14:26:00 Test Item Value Reference Range Interpretation Comments RDW (test code = RDW) 17.2 11.5-14.5 [facility] CenterClzxpfqMVIGPXSUPR3102-60-38 14:26:00 Test Item Value Reference Range Interpretation Comments Platelet (test code = Platelet) 223 133-450 [facility] CenterEjjeojeTRRMZBHGWV1884-77-66 14:26:00 Test Item Value Reference Range Interpretation Comments MCHC (test code = MCHC) 35.0 32.0-36.0 [facility] CenterVfzgndgRUJNQYZNTU6560-55-33 14:26:00 Test Item Value Reference Range Interpretation Comments INR (test code = INR) 0.93 0.85-1.17 [facility] CenterIwyeaxxQXANFWGNCL2018-06-16 14:26:00 Test Item Value Reference Range Interpretation Comments PT (test code = PT) 12.4 s 12.0-14.7 [facility]2014-09-22 14:26:00 Test Item Value Reference Range Interpretation Comments BUN (test code = BUN) 8 7-22 [facility]2014-09-22 14:26:00 Test Item Value Reference Range Interpretation Comments Glucose Lvl (test code = Glucose Lvl) 91 70-99 [facility]2014-09-22 14:26:00 Test Item Value Reference Range Interpretation Comments CO2 (test code = CO2) 29 24-32 [facility]2014-09-22 14:26:00 Test Item Value Reference Range Interpretation Comments AGAP (test code = AGAP) 6.7 10.0-20.0 [facility]2014-09-22 14:26:00 Test Item Value Reference Range Interpretation Comments eGFR (test code = eGFR) 86 [facility]2014-09-22 14:26:00 Test Item Value Reference Range Interpretation Comments Creatinine Lvl (test code = Creatinine 0.8 0.5-1.4 Lvl) [facility]2014-09-22 14:26:00 Test Item Value Reference Range Interpretation Comments Chloride Lvl (test code = Chloride Lvl) 104 95-109 [facility]2014-09-22 14:26:00 Test Item Value Reference Range Interpretation Comments Potassium Lvl (test code = Potassium 3.7 3.5-5.1 Lvl) [facility]2014-09-22 14:26:00 Test Item Value Reference Range Interpretation Comments Sodium Lvl (test code = Sodium Lvl) 136 135-145 [facility]2014-09-22 14:26:00 Test Item Value Reference Range Interpretation Comments Calcium Lvl (test code = Calcium Lvl) 9.7 8.5-10.5 [facility] CenterRtisbpgWTOFCJZLOL5615-39-91 14:26:00 Test Item Value Reference Range Interpretation Comments MCV (test code = MCV) 101.6 80.0-98.0 [facility] CenterBvgwqblDVMTAPZNZI5684-34-53 14:26:00 Test Item Value Reference Range Interpretation Comments MCH (test code = MCH) 35.5 pg 27.0-31.0 [facility] CenterQsrdchiRPADSWGDHR4559-75-39 14:26:00 Test Item Value Reference Range Interpretation Comments Hgb (test code = Hgb) 13.3 12.0-16.0 [facility] CenterItwdmgrESUMSORSUX8462-43-33 14:26:00 Test Item Value Reference Range Interpretation Comments Hct (test code = Hct) 37.9 36.0-48.0 [facility] CenterWxvgtmjDJJTZGAZJG9508-71-74 14:26:00 Test Item Value Reference Range Interpretation Comments RBC (test code = RBC) 3.73 4.20-5.40 [facility] CenterUvnulcqPAAZDNBZKI8295-52-09 14:26:00 Test Item Value Reference Range Interpretation Comments WBC (test code = WBC) 6.1 3.7-10.4 [facility] CenterIlphyulMOKAFEIGKS8456-05-27 14:26:00 Test Item Value Reference Range Interpretation Comments MPV (test code = MPV) 8.0 7.4-10.4 [facility] CenterBtwvrhbIQVQHIOOOA5717-10-87 14:26:00 Test Item Value Reference Range Interpretation Comments RDW (test code = RDW) 17.2 11.5-14.5 [facility] CenterMnkywafNVCEDGPXTL7714-91-57 14:26:00 Test Item Value Reference Range Interpretation Comments Platelet (test code = Platelet) 223 133-450 [facility] CenterCvajabkWRFAHIKYUK1778-63-53 14:26:00 Test Item Value Reference Range Interpretation Comments MCHC (test code = MCHC) 35.0 32.0-36.0 [facility] CenterHllqjhaMOKPJGFBTC3344-38-55 14:26:00 Test Item Value Reference Range Interpretation Comments INR (test code = INR) 0.93 0.85-1.17 [facility] CenterCntbkabIVGHVEWJQB1981-64-50 14:26:00 Test Item Value Reference Range Interpretation Comments PT (test code = PT) 12.4 s 12.0-14.7 [facility] CenterVjhomvwVSSFCKJNPH7367-30-88 09:42:00 Test Item Value Reference Range Interpretation Comments RBC (test code = RBC) 3.80 4.20-5.40 [facility] CenterOnfxbceQFXFRXYUAW9635-09-24 09:42:00 Test Item Value Reference Range Interpretation Comments MCH (test code = MCH) 31.1 pg 27.0-31.0 [facility] CenterJnobasaJPETLXUFES1026-09-46 09:42:00 Test Item Value Reference Range Interpretation Comments Hgb (test code = Hgb) 11.8 12.0-16.0 [facility] CenterNyosubsRZIPCJPPOG7080-93-98 09:42:00 Test Item Value Reference Range Interpretation Comments Hct (test code = Hct) 34.5 36.0-48.0 [facility] CenterLuddsuhJBDCJSCXBL9079-24-76 09:42:00 Test Item Value Reference Range Interpretation Comments MCV (test code = MCV) 90.6 81.0-99.0 [facility] CenterZcoocedSGZXSWPFGS5417-43-05 09:42:00 Test Item Value Reference Range Interpretation Comments RDW (test code = RDW) 16.3 11.5-14.5 [facility] CenterBimuaryZZNIUMUBMQ8270-03-74 09:42:00 Test Item Value Reference Range Interpretation Comments MCHC (test code = MCHC) 34.3 32.0-36.0 [facility] CenterBedqrmiOCMJMTKNLX4752-43-06 09:42:00 Test Item Value Reference Range Interpretation Comments Platelet (test code = Platelet) 167 133-450 [facility] CenterEbxzwvuTOPCGTRQFK2480-98-40 09:42:00 Test Item Value Reference Range Interpretation Comments MPV (test code = MPV) 7.9 7.4-10.4 [facility] CenterUcnazysEITELXDANL4041-52-26 09:42:00 Test Item Value Reference Range Interpretation Comments Eosinophils (test code = 1.6 See_Comment [A utomated message] The Eosinophils) system which ge nerated this result tra nsmitted reference range : <=4.0. The reference r jamaica was not used to int erpret this result as normal/abnormal . [facility] CenterGrpeanvNMSAUJPOKG8403-02-99 09:42:00 Test Item Value Reference Range Interpretation Comments Basophils (test code = 0.2 See_Comment [Aut omated message] The Basophils) system which ge nerated this result tra nsmitted reference range : <=1.0. The reference r jamaica was not used to int erpret this result as normal/abnormal . [facility] CenterQxmwttnELRUUQVAMT6753-79-44 09:42:00 Test Item Value Reference Range Interpretation Comments Segs-Bands # (test code = Segs-Bands #) 2.6 1.5-8.1 [facility] CenterMbbpsadRBWMOGJRFK0634-19-50 09:42:00 Test Item Value Reference Range Interpretation Comments Monocytes (test code = Monocytes) 7.4 2.0-12.0 [facility] CenterIkisupeGDPRTOGGQJ1365-35-52 09:42:00 Test Item Value Reference Range Interpretation Comments Lymphocytes # (test code = Lymphocytes 1.3 1.0-5.5 #) [facility] CenterSkjgzndNBAMFFLKDO3594-60-63 09:42:00 Test Item Value Reference Range Interpretation Comments Monocytes # (test code 0.3 See_Comment [Aut omated message] The = Monocytes #) system which generated this result tra nsmitted reference range : <=0.8. The reference r jamaica was not used to int erpret this result as normal/abnormal . [facility] CenterPlffpksOAVZHHLLKQ6717-65-62 09:42:00 Test Item Value Reference Range Interpretation Comments Eosinophils # (test code 0.1 See_Comment [A utomated message] The = Eosinophils #) system whic h generated this result tra nsmitted reference range : <=0.5. The reference r jamaica was not used to int erpret this result as normal/abnormal . [facility] CenterMgtyaudSDMGULNKZX3045-10-10 09:42:00 Test Item Value Reference Range Interpretation Comments Basophils # (test code 0.0 See_Comment [Aut omated message] The = Basophils #) system which generated this result tra nsmitted reference range : <=0.2. The reference r jamaica was not used to int erpret this result as normal/abnormal . [facility] CenterOtkaasiSBQRSUJJHA1633-28-94 09:42:00 Test Item Value Reference Range Interpretation Comments Lymphocytes (test code = Lymphocytes) 30.7 20.0-40.0 [facility] CenterQcptdaeHSIQOSRWMR5296-47-39 09:42:00 Test Item Value Reference Range Interpretation Comments Segs (test code = Segs) 60.1 45.0-75.0 [facility]2014-05-07 09:42:00 Test Item Value Reference Range Interpretation Comments Magnesium Lvl (test code = Magnesium 2.0 1.8-2.4 Lvl) [facility]2014-05-07 09:42:00 Test Item Value Reference Range Interpretation Comments eGFR (test code = eGFR) 113 [facility]2014-05-07 09:42:00 Test Item Value Reference Range Interpretation Comments BUN (test code = BUN) 4 7-22 [facility]2014-05-07 09:42:00 Test Item Value Reference Range Interpretation Comments Potassium Lvl (test code = Potassium 3.8 3.5-5.1 Lvl) [facility]2014-05-07 09:42:00 Test Item Value Reference Range Interpretation Comments Creatinine Lvl (test code = Creatinine 0.5 0.5-1.4 Lvl) [facility]2014-05-07 09:42:00 Test Item Value Reference Range Interpretation Comments Glucose Lvl (test code = Glucose Lvl) 94 70-99 [facility]2014-05-07 09:42:00 Test Item Value Reference Range Interpretation Comments Sodium Lvl (test code = Sodium Lvl) 142 135-145 [facility]2014-05-07 09:42:00 Test Item Value Reference Range Interpretation Comments Calcium Lvl (test code = Calcium Lvl) 8.7 8.5-10.5 [facility]2014-05-07 09:42:00 Test Item Value Reference Range Interpretation Comments Chloride Lvl (test code = Chloride Lvl) 105 95-109 [facility]2014-05-07 09:42:00 Test Item Value Reference Range Interpretation Comments CO2 (test code = CO2) 30 24-32 [facility]2014-05-07 09:42:00 Test Item Value Reference Range Interpretation Comments AGAP (test code = AGAP) 10.8 10.0-20.0 [place] [id number] 09:42:00 Test Item Value Reference Range Interpretation Comments WBC (test code = WBC) 4.4 3.7-10.4 [facility]2014-05-07 09:42:00 Test Item Value Reference Range Interpretation Comments eGFR (test code = eGFR) 113 [facility]2014-05-07 09:42:00 Test Item Value Reference Range Interpretation Comments BUN (test code = BUN) 4 7-22 [place] [address]-05-07 09:42:00 Test Item Value Reference Range Interpretation Comments Potassium Lvl (test code = Potassium 3.8 3.5-5.1 Lvl) [facility]2014-05-07 09:42:00 Test Item Value Reference Range Interpretation Comments Creatinine Lvl (test code = Creatinine 0.5 0.5-1.4 Lvl) [facility]2014-05-07 09:42:00 Test Item Value Reference Range Interpretation Comments Glucose Lvl (test code = Glucose Lvl) 94 70-99 [facility]2014-05-07 09:42:00 Test Item Value Reference Range Interpretation Comments Sodium Lvl (test code = Sodium Lvl) 142 135-145 [facility]2014-05-07 09:42:00 Test Item Value Reference Range Interpretation Comments Calcium Lvl (test code = Calcium Lvl) 8.7 8.5-10.5 [facility]2014-05-07 09:42:00 Test Item Value Reference Range Interpretation Comments Chloride Lvl (test code = Chloride Lvl) 105 95-109 [facility]2014-05-07 09:42:00 Test Item Value Reference Range Interpretation Comments CO2 (test code = CO2) 30 24-32 [facility]2014-05-07 09:42:00 Test Item Value Reference Range Interpretation Comments AGAP (test code = AGAP) 10.8 10.0-20.0 [facility] CenterCbucelaXCWNKZEEKG2989-46-19 09:42:00 Test Item Value Reference Range Interpretation Comments WBC (test code = WBC) 4.4 3.7-10.4 [facility] CenterCuvgpxiDNVEKGGJHS3345-63-78 09:42:00 Test Item Value Reference Range Interpretation Comments RBC (test code = RBC) 3.80 4.20-5.40 [facility] CenterMxvvgkpCAEBUFUEXE3364-97-38 09:42:00 Test Item Value Reference Range Interpretation Comments MCH (test code = MCH) 31.1 pg 27.0-31.0 [facility] CenterXuadaoiWCEMLSTRPC2683-98-47 09:42:00 Test Item Value Reference Range Interpretation Comments Hgb (test code = Hgb) 11.8 12.0-16.0 [facility] CenterDianyzfOJOSRVXVBY7007-91-03 09:42:00 Test Item Value Reference Range Interpretation Comments Hct (test code = Hct) 34.5 36.0-48.0 [facility] CenterWcrhbngENJWQALDYL4199-91-61 09:42:00 Test Item Value Reference Range Interpretation Comments MCV (test code = MCV) 90.6 81.0-99.0 [facility] CenterHqudiqxRCHBXWTSNR2425-92-60 09:42:00 Test Item Value Reference Range Interpretation Comments RDW (test code = RDW) 16.3 11.5-14.5 [facility] CenterZmqifjhQEDGFWSVNB8666-10-61 09:42:00 Test Item Value Reference Range Interpretation Comments MCHC (test code = MCHC) 34.3 32.0-36.0 [facility] CenterNhdkjilDHGQMWAWCH2620-05-11 09:42:00 Test Item Value Reference Range Interpretation Comments Platelet (test code = Platelet) 167 133-450 [facility] CenterRbptncdOWEMBBUFZC1720-94-40 09:42:00 Test Item Value Reference Range Interpretation Comments MPV (test code = MPV) 7.9 7.4-10.4 [facility] CenterJjixrdzELYPEPRQAB1953-84-44 09:42:00 Test Item Value Reference Range Interpretation Comments Eosinophils (test code = 1.6 See_Comment [A utomated message] The Eosinophils) system which ge nerated this result tra nsmitted reference range : <=4.0. The reference r jamaica was not used to int erpret this result as normal/abnormal . [facility] CenterGogohavDRLUOURTPA2075-60-85 09:42:00 Test Item Value Reference Range Interpretation Comments Basophils (test code = 0.2 See_Comment [Aut omated message] The Basophils) system which ge nerated this result tra nsmitted reference range : <=1.0. The reference r jamaica was not used to int erpret this result as normal/abnormal . [facility] CenterWxgbsucJDQRKTWRFF2732-54-61 09:42:00 Test Item Value Reference Range Interpretation Comments Segs-Bands # (test code = Segs-Bands #) 2.6 1.5-8.1 [facility] CenterTzevrblOAIYUHWQDZ1910-69-58 09:42:00 Test Item Value Reference Range Interpretation Comments Monocytes (test code = Monocytes) 7.4 2.0-12.0 [facility] CenterQcxqumpRRWVJLATSU2045-70-04 09:42:00 Test Item Value Reference Range Interpretation Comments Lymphocytes # (test code = Lymphocytes 1.3 1.0-5.5 #) [facility] CenterCbgchnjLTEERUCPMX1756-67-06 09:42:00 Test Item Value Reference Range Interpretation Comments Monocytes # (test code 0.3 See_Comment [Aut omated message] The = Monocytes #) system which generated this result tra nsmitted reference range : <=0.8. The reference r jamaica was not used to int erpret this result as normal/abnormal . [facility] CenterQqdtdcjWPSULZWLFY0942-60-34 09:42:00 Test Item Value Reference Range Interpretation Comments Eosinophils # (test code 0.1 See_Comment [A utomated message] The = Eosinophils #) system whic h generated this result tra nsmitted reference range : <=0.5. The reference r jamaica was not used to int erpret this result as normal/abnormal . [facility] CenterQahxnkeYFOHHSZQZU7780-60-04 09:42:00 Test Item Value Reference Range Interpretation Comments Basophils # (test code 0.0 See_Comment [Aut omated message] The = Basophils #) system which generated this result tra nsmitted reference range : <=0.2. The reference r jamaica was not used to int erpret this result as normal/abnormal . [facility] CenterVzkmpomQBYPNUYGFL7989-50-77 09:42:00 Test Item Value Reference Range Interpretation Comments Lymphocytes (test code = Lymphocytes) 30.7 20.0-40.0 [facility] CenterCxyzoovRWDNXIOKSV0052-72-14 09:42:00 Test Item Value Reference Range Interpretation Comments Segs (test code = Segs) 60.1 45.0-75.0 [facility]2014-05-07 09:42:00 Test Item Value Reference Range Interpretation Comments Magnesium Lvl (test code = Magnesium 2.0 1.8-2.4 Lvl) [facility]2014-05-07 09:42:00 Test Item Value Reference Range Interpretation Comments eGFR (test code = eGFR) 113 [place] 955354-05-07 09:42:00 Test Item Value Reference Range Interpretation Comments BUN (test code = BUN) 4 7-22 [place] 955354-05-07 09:42:00 Test Item Value Reference Range Interpretation Comments Potassium Lvl (test code = Potassium 3.8 3.5-5.1 Lvl) [place] 955354-05-07 09:42:00 Test Item Value Reference Range Interpretation Comments Creatinine Lvl (test code = Creatinine 0.5 0.5-1.4 Lvl) [place] [address]-05-07 09:42:00 Test Item Value Reference Range Interpretation Comments Glucose Lvl (test code = Glucose Lvl) 94 70-99 [facility]2014-05-07 09:42:00 Test Item Value Reference Range Interpretation Comments Sodium Lvl (test code = Sodium Lvl) 142 135-145 [facility]2014-05-07 09:42:00 Test Item Value Reference Range Interpretation Comments Calcium Lvl (test code = Calcium Lvl) 8.7 8.5-10.5 [place] 955354-05-07 09:42:00 Test Item Value Reference Range Interpretation Comments Chloride Lvl (test code = Chloride Lvl) 105 95-109 [facility]2014-05-07 09:42:00 Test Item Value Reference Range Interpretation Comments CO2 (test code = CO2) 30 24-32 [facility]2014-05-07 09:42:00 Test Item Value Reference Range Interpretation Comments AGAP (test code = AGAP) 10.8 10.0-20.0 [place] 732984-05-07 09:42:00 Test Item Value Reference Range Interpretation Comments WBC (test code = WBC) 4.4 3.7-10.4 [facility] CenterKgfoclhDQNRTMKEQD9722-67-51 09:42:00 Test Item Value Reference Range Interpretation Comments RBC (test code = RBC) 3.80 4.20-5.40 [facility] CenterBzcdhygKKNXNCIDUY2419-94-73 09:42:00 Test Item Value Reference Range Interpretation Comments MCH (test code = MCH) 31.1 pg 27.0-31.0 [place] 732984-05-07 09:42:00 Test Item Value Reference Range Interpretation Comments Hgb (test code = Hgb) 11.8 12.0-16.0 [facility] CenterJcrhtvqDXXCEUVFCD0969-69-19 09:42:00 Test Item Value Reference Range Interpretation Comments Hct (test code = Hct) 34.5 36.0-48.0 [facility] CenterQqwntjnWJNSJHGRML7176-79-78 09:42:00 Test Item Value Reference Range Interpretation Comments MCV (test code = MCV) 90.6 81.0-99.0 [facility] CenterUdpamioFJDHZORIUY4742-79-93 09:42:00 Test Item Value Reference Range Interpretation Comments RDW (test code = RDW) 16.3 11.5-14.5 [facility] CenterWdkpgjeOIEZJDZGGO8850-65-98 09:42:00 Test Item Value Reference Range Interpretation Comments MCHC (test code = MCHC) 34.3 32.0-36.0 [facility] CenterIdcenmhGIQKUBJCGO4721-10-98 09:42:00 Test Item Value Reference Range Interpretation Comments Platelet (test code = Platelet) 167 133-450 [facility] CenterMczndqwVKZRMLXDXG3400-53-49 09:42:00 Test Item Value Reference Range Interpretation Comments MPV (test code = MPV) 7.9 7.4-10.4 [facility] CenterGgzleihLXRVBDHHOJ8587-57-69 09:42:00 Test Item Value Reference Range Interpretation Comments Eosinophils (test code = 1.6 See_Comment [A utomated message] The Eosinophils) system which ge nerated this result tra nsmitted reference range : <=4.0. The reference r jamaica was not used to int erpret this result as normal/abnormal . [facility] CenterXztusvoBDVDYDAFDJ2360-98-41 09:42:00 Test Item Value Reference Range Interpretation Comments Basophils (test code = 0.2 See_Comment [Aut omated message] The Basophils) system which ge nerated this result tra nsmitted reference range : <=1.0. The reference r jamaica was not used to int erpret this result as normal/abnormal . [facility] CenterUrgfuknDQMDHGRAPL9082-85-12 09:42:00 Test Item Value Reference Range Interpretation Comments Segs-Bands # (test code = Segs-Bands #) 2.6 1.5-8.1 [facility] CenterHrbdhvyOGQVPPBTKR1150-99-78 09:42:00 Test Item Value Reference Range Interpretation Comments Monocytes (test code = Monocytes) 7.4 2.0-12.0 [facility] CenterNzactthPELBBQUXTI7387-58-31 09:42:00 Test Item Value Reference Range Interpretation Comments Lymphocytes # (test code = Lymphocytes 1.3 1.0-5.5 #) [facility] CenterHhxwrhsCBCHUCCFWZ2135-03-27 09:42:00 Test Item Value Reference Range Interpretation Comments Monocytes # (test code 0.3 See_Comment [Aut omated message] The = Monocytes #) system which generated this result tra nsmitted reference range : <=0.8. The reference r jamaica was not used to int erpret this result as normal/abnormal . [facility] CenterTtibsfiZVILDBYSZH8490-92-65 09:42:00 Test Item Value Reference Range Interpretation Comments Eosinophils # (test code 0.1 See_Comment [A utomated message] The = Eosinophils #) system whic h generated this result tra nsmitted reference range : <=0.5. The reference r jamaica was not used to int erpret this result as normal/abnormal . [facility] CenterLvyedqfVSHFYZSCCY6003-56-31 09:42:00 Test Item Value Reference Range Interpretation Comments Basophils # (test code 0.0 See_Comment [Aut omated message] The = Basophils #) system which generated this result tra nsmitted reference range : <=0.2. The reference r jamaica was not used to int erpret this result as normal/abnormal . [facility] CenterUauapgbWEQYXCDANX1503-69-65 09:42:00 Test Item Value Reference Range Interpretation Comments Lymphocytes (test code = Lymphocytes) 30.7 20.0-40.0 [place] 732984-05-07 09:42:00 Test Item Value Reference Range Interpretation Comments Segs (test code = Segs) 60.1 45.0-75.0 [place] 955354-05-07 09:42:00 Test Item Value Reference Range Interpretation Comments Magnesium Lvl (test code = Magnesium 2.0 1.8-2.4 Lvl) [place] [address]55354-05-07 09:42:00 Test Item Value Reference Range Interpretation Comments eGFR (test code = eGFR) 113 [facility]2014-05-07 09:42:00 Test Item Value Reference Range Interpretation Comments BUN (test code = BUN) 4 7-22 [facility]2014-05-07 09:42:00 Test Item Value Reference Range Interpretation Comments Potassium Lvl (test code = Potassium 3.8 3.5-5.1 Lvl) [facility]2014-05-07 09:42:00 Test Item Value Reference Range Interpretation Comments Creatinine Lvl (test code = Creatinine 0.5 0.5-1.4 Lvl) [facility]2014-05-07 09:42:00 Test Item Value Reference Range Interpretation Comments Glucose Lvl (test code = Glucose Lvl) 94 70-99 [place] 955354-05-07 09:42:00 Test Item Value Reference Range Interpretation Comments Sodium Lvl (test code = Sodium Lvl) 142 135-145 [facility]2014-05-07 09:42:00 Test Item Value Reference Range Interpretation Comments Calcium Lvl (test code = Calcium Lvl) 8.7 8.5-10.5 [facility]2014-05-07 09:42:00 Test Item Value Reference Range Interpretation Comments Chloride Lvl (test code = Chloride Lvl) 105 95-109 [facility]2014-05-07 09:42:00 Test Item Value Reference Range Interpretation Comments CO2 (test code = CO2) 30 24-32 [facility]2014-05-07 09:42:00 Test Item Value Reference Range Interpretation Comments AGAP (test code = AGAP) 10.8 10.0-20.0 [facility] CenterQnhnogkTDPGDVDZTZ0330-92-88 09:42:00 Test Item Value Reference Range Interpretation Comments WBC (test code = WBC) 4.4 3.7-10.4 [place] 732984-05-07 09:42:00 Test Item Value Reference Range Interpretation Comments RBC (test code = RBC) 3.80 4.20-5.40 [facility] CenterNrgnrncXRQVPYTHYD9170-06-84 09:42:00 Test Item Value Reference Range Interpretation Comments MCH (test code = MCH) 31.1 pg 27.0-31.0 [facility] CenterEbidtaoWLLWZEWMRS0426-74-36 09:42:00 Test Item Value Reference Range Interpretation Comments Hgb (test code = Hgb) 11.8 12.0-16.[address]05-07 09:42:00 Test Item Value Reference Range Interpretation Comments Hct (test code = Hct) 34.5 36.0-48.0 [facility] CenterPnrwyvrFFLQLNWLNT1694-63-41 09:42:00 Test Item Value Reference Range Interpretation Comments MCV (test code = MCV) 90.6 81.0-99.0 [facility] CenterEcamqxhRYJYVSARWZ8292-92-95 09:42:00 Test Item Value Reference Range Interpretation Comments RDW (test code = RDW) 16.3 11.5-14.5 [facility] CenterVvncuzdZGZFGXHUWO5801-90-48 09:42:00 Test Item Value Reference Range Interpretation Comments MCHC (test code = MCHC) 34.3 32.0-36.0 [facility] CenterAdxkuqoWETQBVUQYR5461-45-99 09:42:00 Test Item Value Reference Range Interpretation Comments Platelet (test code = Platelet) 167 133-450 [facility] CenterPmxodwrDUIPJDFIBA3446-23-17 09:42:00 Test Item Value Reference Range Interpretation Comments MPV (test code = MPV) 7.9 7.4-10.4 [facility] CenterRxqlxmhFLVJLJQGNS1724-51-30 09:42:00 Test Item Value Reference Range Interpretation Comments Eosinophils (test code = 1.6 See_Comment [A utomated message] The Eosinophils) system which ge nerated this result tra nsmitted reference range : <=4.0. The reference r jamaica was not used to int erpret this result as normal/abnormal . [facility] CenterSpdaozkGMVSLSAQYR0764-53-78 09:42:00 Test Item Value Reference Range Interpretation Comments Basophils (test code = 0.2 See_Comment [Aut omated message] The Basophils) system which ge nerated this result tra nsmitted reference range : <=1.0. The reference r jamaica was not used to int erpret this result as normal/abnormal . [facility] CenterWoqmdvbBXABHNFEXH9717-20-60 09:42:00 Test Item Value Reference Range Interpretation Comments Segs-Bands # (test code = Segs-Bands #) 2.6 1.5-8.1 [facility] CenterCrbsnpeFPNCQFRHGI4535-88-84 09:42:00 Test Item Value Reference Range Interpretation Comments Monocytes (test code = Monocytes) 7.4 2.0-12.0 [facility] CenterWlpamixHBVRWBMGFD1239-49-60 09:42:00 Test Item Value Reference Range Interpretation Comments Lymphocytes # (test code = Lymphocytes 1.3 1.0-5.5 #) [facility] CenterIllnhyyLPGOLPCELK7276-67-31 09:42:00 Test Item Value Reference Range Interpretation Comments Monocytes # (test code 0.3 See_Comment [Aut omated message] The = Monocytes #) system which generated this result tra nsmitted reference range : <=0.8. The reference r jamaica was not used to int erpret this result as normal/abnormal . [facility] CenterDcroohiMEJRRGXEOY0302-00-56 09:42:00 Test Item Value Reference Range Interpretation Comments Eosinophils # (test code 0.1 See_Comment [A utomated message] The = Eosinophils #) system whic h generated this result tra nsmitted reference range : <=0.5. The reference r jamaica was not used to int erpret this result as normal/abnormal . [facility] CenterZgpupexRTDFOIIXUK9262-68-00 09:42:00 Test Item Value Reference Range Interpretation Comments Basophils # (test code 0.0 See_Comment [Aut omated message] The = Basophils #) system which generated this result tra nsmitted reference range : <=0.2. The reference r jamaica was not used to int erpret this result as normal/abnormal . [facility] CenterBjjmhfwWOHETSZKPF4151-67-53 09:42:00 Test Item Value Reference Range Interpretation Comments Lymphocytes (test code = Lymphocytes) 30.7 20.0-40.0 [place] [address]-05-07 09:42:00 Test Item Value Reference Range Interpretation Comments Segs (test code = Segs) 60.1 45.0-75.0 [facility]2014-05-07 09:42:00 Test Item Value Reference Range Interpretation Comments Magnesium Lvl (test code = Magnesium 2.0 1.8-2.4 Lvl) [facility]2014-05-07 09:42:00 Test Item Value Reference Range Interpretation Comments eGFR (test code = eGFR) 113 [facility]2014-05-07 09:42:00 Test Item Value Reference Range Interpretation Comments BUN (test code = BUN) 4 7-22 [place] [address]-05-07 09:42:00 Test Item Value Reference Range Interpretation Comments Potassium Lvl (test code = Potassium 3.8 3.5-5.1 Lvl) [facility]2014-05-07 09:42:00 Test Item Value Reference Range Interpretation Comments Creatinine Lvl (test code = Creatinine 0.5 0.5-1.4 Lvl) [facility]2014-05-07 09:42:00 Test Item Value Reference Range Interpretation Comments Glucose Lvl (test code = Glucose Lvl) 94 70-99 [place] [address]55354-05-07 09:42:00 Test Item Value Reference Range Interpretation Comments Sodium Lvl (test code = Sodium Lvl) 142 135-145 [place] [address]-05-07 09:42:00 Test Item Value Reference Range Interpretation Comments Calcium Lvl (test code = Calcium Lvl) 8.7 8.5-10.5 [facility]2014-05-07 09:42:00 Test Item Value Reference Range Interpretation Comments Chloride Lvl (test code = Chloride Lvl) 105 95-109 [facility]2014-05-07 09:42:00 Test Item Value Reference Range Interpretation Comments CO2 (test code = CO2) 30 24-32 [place] [address]55354-05-07 09:42:00 Test Item Value Reference Range Interpretation Comments AGAP (test code = AGAP) 10.8 10.0-20.0 [facility] CenterIksusupKYMZFIJGMU3322-56-05 09:42:00 Test Item Value Reference Range Interpretation Comments WBC (test code = WBC) 4.4 3.7-10.4 [facility] CenterBprfmxzRRQWGHFZWP1390-97-06 09:42:00 Test Item Value Reference Range Interpretation Comments RBC (test code = RBC) 3.80 4.20-5.40 [place] 732984-05-07 09:42:00 Test Item Value Reference Range Interpretation Comments MCH (test code = MCH) 31.1 pg 27.0-31.0 [place] [address]-05-07 09:42:00 Test Item Value Reference Range Interpretation Comments Hgb (test code = Hgb) 11.8 12.0-16.0 [place] [address]-05-07 09:42:00 Test Item Value Reference Range Interpretation Comments Hct (test code = Hct) 34.5 36.0-48.0 [place] 732984-05-07 09:42:00 Test Item Value Reference Range Interpretation Comments MCV (test code = MCV) 90.6 81.0-99.0 [facility] CenterQsmuwugTWOGTNJPXN9050-52-22 09:42:00 Test Item Value Reference Range Interpretation Comments RDW (test code = RDW) 16.3 11.5-14.5 [facility] CenterLymqyxsELMETCYAIY5941-91-02 09:42:00 Test Item Value Reference Range Interpretation Comments MCHC (test code = MCHC) 34.3 32.0-36.0 [facility] CenterYqggsrqCOJZSWUWBE7999-74-57 09:42:00 Test Item Value Reference Range Interpretation Comments Platelet (test code = Platelet) 167 133-450 [facility] CenterFviezgaNYNRWSNHHW9629-06-62 09:42:00 Test Item Value Reference Range Interpretation Comments MPV (test code = MPV) 7.9 7.4-10.4 [facility] CenterFqymquzZVAOGCREPX1579-26-50 09:42:00 Test Item Value Reference Range Interpretation Comments Eosinophils (test code = 1.6 See_Comment [A utomated message] The Eosinophils) system which ge nerated this result tra nsmitted reference range : <=4.0. The reference r jamaica was not used to int erpret this result as normal/abnormal . [facility] CenterUcskeyyEKEWJPHHNP2295-98-39 09:42:00 Test Item Value Reference Range Interpretation Comments Basophils (test code = 0.2 See_Comment [Aut omated message] The Basophils) system which ge nerated this result tra nsmitted reference range : <=1.0. The reference r jamaica was not used to int erpret this result as normal/abnormal . [facility] CenterVzqkixmLLQRSVRIIA4800-96-89 09:42:00 Test Item Value Reference Range Interpretation Comments Segs-Bands # (test code = Segs-Bands #) 2.6 1.5-8.1 [facility] CenterGnqsmhdSLHXGBJMGV9980-53-19 09:42:00 Test Item Value Reference Range Interpretation Comments Monocytes (test code = Monocytes) 7.4 2.0-12.0 [facility] CenterExxuifhCJMAQTUJJB5628-39-46 09:42:00 Test Item Value Reference Range Interpretation Comments Lymphocytes # (test code = Lymphocytes 1.3 1.0-5.5 #) [facility] CenterWjsjksiQHDCICSBKJ0615-53-92 09:42:00 Test Item Value Reference Range Interpretation Comments Monocytes # (test code 0.3 See_Comment [Aut omated message] The = Monocytes #) system which generated this result tra nsmitted reference range : <=0.8. The reference r jamaica was not used to int erpret this result as normal/abnormal . [facility] CenterEswkzyvVSBLABZQRL8983-51-11 09:42:00 Test Item Value Reference Range Interpretation Comments Eosinophils # (test code 0.1 See_Comment [A utomated message] The = Eosinophils #) system whic h generated this result tra nsmitted reference range : <=0.5. The reference r jamaica was not used to int erpret this result as normal/abnormal . [facility] CenterHsnhlcgVSRWXVBPSU9647-24-77 09:42:00 Test Item Value Reference Range Interpretation Comments Basophils # (test code 0.0 See_Comment [Aut omated message] The = Basophils #) system which generated this result tra nsmitted reference range : <=0.2. The reference r jamaica was not used to int erpret this result as normal/abnormal . [facility] CenterQjzkrbjMKHFNHYHFC6687-34-07 09:42:00 Test Item Value Reference Range Interpretation Comments Lymphocytes (test code = Lymphocytes) 30.7 20.0-40.0 [facility] CenterVavwrqbISXLYHHMYS9713-93-26 09:42:00 Test Item Value Reference Range Interpretation Comments Segs (test code = Segs) 60.1 45.0-75.0 [facility]2014-05-07 09:42:00 Test Item Value Reference Range Interpretation Comments Magnesium Lvl (test code = Magnesium 2.0 1.8-2.4 Lvl) [facility]2014-05-05 12:13:00 Test Item Value Reference Range Interpretation Comments Magnesium Lvl (test code = Magnesium 1.8 1.8-2.4 Lvl) [facility]2014-05-05 12:13:00 Test Item Value Reference Range Interpretation Comments Phosphorus (test code = Phosphorus) 2.6 2.5-4.5 [facility]2014-05-05 12:13:00 Test Item Value Reference Range Interpretation Comments Globulin (test code = Globulin) 2.8 2.0-4.0 [facility]2014-05-05 12:13:00 Test Item Value Reference Range Interpretation Comments A/G Ratio (test code = A/G Ratio) 1.2 0.7-1.6 [facility]2014-05-05 12:13:00 Test Item Value Reference Range Interpretation Comments B/C Ratio (test code = B/C Ratio) 10 6-25 [place] 955354-05-05 12:13:00 Test Item Value Reference Range Interpretation Comments AGAP (test code = AGAP) 6.9 10.0-20.0 [facility]2014-05-05 12:13:00 Test Item Value Reference Range Interpretation Comments eGFR (test code = eGFR) 101 [facility]2014-05-05 12:13:00 Test Item Value Reference Range Interpretation Comments Glucose Lvl (test code = Glucose Lvl) 84 70-99 [facility]2014-05-05 12:13:00 Test Item Value Reference Range Interpretation Comments Potassium Lvl (test code = Potassium 3.9 3.5-5.1 Lvl) [facility]2014-05-05 12:13:00 Test Item Value Reference Range Interpretation Comments Sodium Lvl (test code = Sodium Lvl) 141 135-145 [facility]2014-05-05 12:13:00 Test Item Value Reference Range Interpretation Comments Creatinine Lvl (test code = Creatinine 0.7 0.5-1.4 Lvl) [facility]2014-05-05 12:13:00 Test Item Value Reference Range Interpretation Comments BUN (test code = BUN) 7 7-22 [facility]2014-05-05 12:13:00 Test Item Value Reference Range Interpretation Comments Bili Total (test code = Bili Total) 0.3 0.2-1.3 [facility]2014-05-05 12:13:00 Test Item Value Reference Range Interpretation Comments Alk Phos (test code = Alk Phos) 71 39-136 [facility]2014-05-05 12:13:00 Test Item Value Reference Range Interpretation Comments AST (test code = AST) 21 See_Comment [Auto mated message] The system which ge nerated this result transmit ulysses reference range : <=37. The reference range was not used to interpr et this result as sharron l/abnormal. [place] 955354-05-05 12:13:00 Test Item Value Reference Range Interpretation Comments ALT (test code = ALT) 20 See_Comment [Auto mated message] The system which ge nerated this result transmit ulysses reference range : <=65. The reference range was not used to interpr et this result as sharron l/abnormal. [place] 955354-05-05 12:13:00 Test Item Value Reference Range Interpretation Comments Total Protein (test code = Total 6.1 6.4-8.4 Protein) [facility]2014-05-05 12:13:00 Test Item Value Reference Range Interpretation Comments CO2 (test code = CO2) 33 24-32 [facility]2014-05-05 12:13:00 Test Item Value Reference Range Interpretation Comments Albumin Lvl (test code = Albumin Lvl) 3.3 3.5-5.0 [facility]2014-05-05 12:13:00 Test Item Value Reference Range Interpretation Comments Calcium Lvl (test code = Calcium Lvl) 8.4 8.5-10.5 [facility]2014-05-05 12:13:00 Test Item Value Reference Range Interpretation Comments Chloride Lvl (test code = Chloride Lvl) 105 95-109 [facility] CenterInboyyiICEVQBHXLS6328-47-96 12:13:00 Test Item Value Reference Range Interpretation Comments Basophils # (test code 0.0 See_Comment [Aut omated message] The = Basophils #) system which generated this result tra nsmitted reference range : <=0.2. The reference r jamaica was not used to int erpret this result as normal/abnormal . [facility] CenterQxmsvlsKUUZSONPEA2558-35-69 12:13:00 Test Item Value Reference Range Interpretation Comments Segs (test code = Segs) 63.5 45.0-75.0 [facility] CenterTrhazjpZTYBAFABAV8517-52-01 12:13:00 Test Item Value Reference Range Interpretation Comments Monocytes # (test code 0.3 See_Comment [Aut omated message] The = Monocytes #) system which generated this result tra nsmitted reference range : <=0.8. The reference r jamaica was not used to int erpret this result as normal/abnormal . [facility] CenterTlefxpwRXNCHSYCQX9211-58-00 12:13:00 Test Item Value Reference Range Interpretation Comments Basophils (test code = 0.2 See_Comment [Aut omated message] The Basophils) system which ge nerated this result tra nsmitted reference range : <=1.0. The reference r jamaica was not used to int erpret this result as normal/abnormal . [facility] CenterZchwoxvDSRGKTVCMK5198-58-13 12:13:00 Test Item Value Reference Range Interpretation Comments Lymphocytes # (test code = Lymphocytes 1.5 1.0-5.5 #) [facility] CenterEfzpmlnBZOZMOVRMP2832-45-81 12:13:00 Test Item Value Reference Range Interpretation Comments Segs-Bands # (test code = Segs-Bands #) 3.3 1.5-8.1 [facility] CenterJpzsiubNIACRJMVTI8278-68-68 12:13:00 Test Item Value Reference Range Interpretation Comments Eosinophils # (test code 0.1 See_Comment [A utomated message] The = Eosinophils #) system whic h generated this result tra nsmitted reference range : <=0.5. The reference r jamaica was not used to int erpret this result as normal/abnormal . [facility] CenterQedoufgLCJOYSLHWY5880-96-45 12:13:00 Test Item Value Reference Range Interpretation Comments Lymphocytes (test code = Lymphocytes) 28.9 20.0-40.0 [facility] CenterIaisyhzKVCPZWRGUZ0309-84-42 12:13:00 Test Item Value Reference Range Interpretation Comments Monocytes (test code = Monocytes) 6.2 2.0-12.0 [facility] CenterWklpebuIYBBPRLLRK0269-53-44 12:13:00 Test Item Value Reference Range Interpretation Comments Eosinophils (test code = 1.2 See_Comment [A utomated message] The Eosinophils) system which ge nerated this result tra nsmitted reference range : <=4.0. The reference r jamaica was not used to int erpret this result as normal/abnormal . [facility] CenterUjzfzofRUMMPNGVZO6530-25-06 12:13:00 Test Item Value Reference Range Interpretation Comments MCHC (test code = MCHC) 34.3 32.0-36.0 [facility] CenterGyfokbpHXSRXVRGMB4069-04-11 12:13:00 Test Item Value Reference Range Interpretation Comments RDW (test code = RDW) 16.5 11.5-14.5 [facility] CenterTssrzpxIQDWTTODZE5014-99-33 12:13:00 Test Item Value Reference Range Interpretation Comments MCH (test code = MCH) 31.5 pg 27.0-31.0 [facility] CenterDxhouipKHKEDFYBDV7200-91-19 12:13:00 Test Item Value Reference Range Interpretation Comments MCV (test code = MCV) 91.9 81.0-99.0 [facility] CenterUkujjuvTCGNZTSMXA8231-67-25 12:13:00 Test Item Value Reference Range Interpretation Comments Platelet (test code = Platelet) 177 133-450 [facility] CenterCqejihgOCQMTJBPLX1154-41-32 12:13:00 Test Item Value Reference Range Interpretation Comments MPV (test code = MPV) 7.9 7.4-10.4 [facility] CenterDosglxoVICDXRCJIP3093-37-94 12:13:00 Test Item Value Reference Range Interpretation Comments RBC (test code = RBC) 3.91 4.20-5.40 [facility] CenterKmxwxhqACJYNVJWAI8758-30-37 12:13:00 Test Item Value Reference Range Interpretation Comments Hct (test code = Hct) 35.9 36.0-48.0 [facility] CenterKkwgybxYBWYPKMPWI6130-02-60 12:13:00 Test Item Value Reference Range Interpretation Comments Hgb (test code = Hgb) 12.3 12.0-16.0 [facility] CenterVekrzpcMGGNTOZTFJ2623-66-19 12:13:00 Test Item Value Reference Range Interpretation Comments WBC (test code = WBC) 5.1 3.7-10.4 [facility]2014-05-05 12:13:00 Test Item Value Reference Range Interpretation Comments Magnesium Lvl (test code = Magnesium 1.8 1.8-2.4 Lvl) [facility]2014-05-05 12:13:00 Test Item Value Reference Range Interpretation Comments Phosphorus (test code = Phosphorus) 2.6 2.5-4.5 [facility]2014-05-05 12:13:00 Test Item Value Reference Range Interpretation Comments Globulin (test code = Globulin) 2.8 2.0-4.0 [facility]2014-05-05 12:13:00 Test Item Value Reference Range Interpretation Comments A/G Ratio (test code = A/G Ratio) 1.2 0.7-1.6 [facility]2014-05-05 12:13:00 Test Item Value Reference Range Interpretation Comments B/C Ratio (test code = B/C Ratio) 10 6-25 [place] [address]55354-05-05 12:13:00 Test Item Value Reference Range Interpretation Comments AGAP (test code = AGAP) 6.9 10.0-20.0 [place] [address]55354-05-05 12:13:00 Test Item Value Reference Range Interpretation Comments eGFR (test code = eGFR) 101 [place] [address]-05-05 12:13:00 Test Item Value Reference Range Interpretation Comments Glucose Lvl (test code = Glucose Lvl) 84 70-99 [place] [address]55354-05-05 12:13:00 Test Item Value Reference Range Interpretation Comments Potassium Lvl (test code = Potassium 3.9 3.5-5.1 Lvl) [address]05-05 12:13:00 Test Item Value Reference Range Interpretation Comments Sodium Lvl (test code = Sodium Lvl) 141 135-145 [place] [address]55354-05-05 12:13:00 Test Item Value Reference Range Interpretation Comments Creatinine Lvl (test code = Creatinine 0.7 0.5-1.4 Lvl) [place] [address]55354-05-05 12:13:00 Test Item Value Reference Range Interpretation Comments BUN (test code = BUN) 7 7-22 [place] [address]-05-05 12:13:00 Test Item Value Reference Range Interpretation Comments Bili Total (test code = Bili Total) 0.3 0.2-1.3 [place] [address]354-05-05 12:13:00 Test Item Value Reference Range Interpretation Comments Alk Phos (test code = Alk Phos) 71 39-136 [place] [address]55354-05-05 12:13:00 Test Item Value Reference Range Interpretation Comments AST (test code = AST) 21 See_Comment [Auto mated message] The system which ge nerated this result transmit ulysses reference range : <=37. The reference range was not used to interpr et this result as sharron l/abnormal. [place] [address]-05-05 12:13:00 Test Item Value Reference Range Interpretation Comments ALT (test code = ALT) 20 See_Comment [Auto mated message] The system which ge nerated this result transmit ulysses reference range : <=65. The reference range was not used to interpr et this result as sharron l/abnormal. [facility]2014-05-05 12:13:00 Test Item Value Reference Range Interpretation Comments Total Protein (test code = Total 6.1 6.4-8.4 Protein) [facility]2014-05-05 12:13:00 Test Item Value Reference Range Interpretation Comments CO2 (test code = CO2) 33 24-32 [facility]2014-05-05 12:13:00 Test Item Value Reference Range Interpretation Comments Albumin Lvl (test code = Albumin Lvl) 3.3 3.5-5.0 [facility]2014-05-05 12:13:00 Test Item Value Reference Range Interpretation Comments Calcium Lvl (test code = Calcium Lvl) 8.4 8.5-10.5 [facility]2014-05-05 12:13:00 Test Item Value Reference Range Interpretation Comments Chloride Lvl (test code = Chloride Lvl) 105 95-109 [facility] CenterVwfshplCYZMYUQFLT7637-79-67 12:13:00 Test Item Value Reference Range Interpretation Comments Basophils # (test code 0.0 See_Comment [Aut omated message] The = Basophils #) system which generated this result tra nsmitted reference range : <=0.2. The reference r jamaica was not used to int erpret this result as normal/abnormal . [facility] CenterKdcgubuYPHGJRJRNI3492-05-55 12:13:00 Test Item Value Reference Range Interpretation Comments Segs (test code = Segs) 63.5 45.0-75.0 [facility] CenterTdrvlylOBEVDTXVNL7949-59-25 12:13:00 Test Item Value Reference Range Interpretation Comments Monocytes # (test code 0.3 See_Comment [Aut omated message] The = Monocytes #) system which generated this result tra nsmitted reference range : <=0.8. The reference r jamaica was not used to int erpret this result as normal/abnormal . [facility] CenterBbnmszaGETNDSFMLE6624-88-85 12:13:00 Test Item Value Reference Range Interpretation Comments Basophils (test code = 0.2 See_Comment [Aut omated message] The Basophils) system which ge nerated this result tra nsmitted reference range : <=1.0. The reference r jamaica was not used to int erpret this result as normal/abnormal . [facility] CenterDkpnyhmCZHWJAEOES7900-18-92 12:13:00 Test Item Value Reference Range Interpretation Comments Lymphocytes # (test code = Lymphocytes 1.5 1.0-5.5 #) [facility] CenterQqoasseJSJNJOGBHU1474-71-63 12:13:00 Test Item Value Reference Range Interpretation Comments Segs-Bands # (test code = Segs-Bands #) 3.3 1.5-8.1 [facility] CenterDievkevJJQNPLRECI5726-83-01 12:13:00 Test Item Value Reference Range Interpretation Comments Eosinophils # (test code 0.1 See_Comment [A utomated message] The = Eosinophils #) system whic h generated this result tra nsmitted reference range : <=0.5. The reference r jamaica was not used to int erpret this result as normal/abnormal . [facility] CenterYrvwscrOAFHJKZVHP3345-07-37 12:13:00 Test Item Value Reference Range Interpretation Comments Lymphocytes (test code = Lymphocytes) 28.9 20.0-40.0 [facility] CenterNpnqcoeYNHRRNEQDA4453-40-30 12:13:00 Test Item Value Reference Range Interpretation Comments Monocytes (test code = Monocytes) 6.2 2.0-12.0 [facility] CenterOkmsgnmENYSZNEKFS1839-07-21 12:13:00 Test Item Value Reference Range Interpretation Comments Eosinophils (test code = 1.2 See_Comment [A utomated message] The Eosinophils) system which ge nerated this result tra nsmitted reference range : <=4.0. The reference r jamaica was not used to int erpret this result as normal/abnormal . [facility] CenterOocpbpjXIFPNXASYF5200-47-08 12:13:00 Test Item Value Reference Range Interpretation Comments MCHC (test code = MCHC) 34.3 32.0-36.0 [facility] CenterAgzyugcDIXHMCBMVJ5017-75-93 12:13:00 Test Item Value Reference Range Interpretation Comments RDW (test code = RDW) 16.5 11.5-14.5 [facility] CenterDtwhgmpZJCWCIMWOR4646-18-50 12:13:00 Test Item Value Reference Range Interpretation Comments MCH (test code = MCH) 31.5 pg 27.0-31.0 [facility] CenterKfgzzwyJINITDCMFU7797-23-43 12:13:00 Test Item Value Reference Range Interpretation Comments MCV (test code = MCV) 91.9 81.0-99.0 [facility] CenterVaqqestSRHJGNUJAN1458-92-19 12:13:00 Test Item Value Reference Range Interpretation Comments Platelet (test code = Platelet) 177 133-450 [facility] CenterRypkeypVZOVRYPNMS1889-56-02 12:13:00 Test Item Value Reference Range Interpretation Comments MPV (test code = MPV) 7.9 7.4-10.4 [facility] CenterSqjotlaTKZSVPOXCM5787-55-36 12:13:00 Test Item Value Reference Range Interpretation Comments RBC (test code = RBC) 3.91 4.20-5.40 [facility] CenterXkyktwqHCAPBROYDS5734-46-61 12:13:00 Test Item Value Reference Range Interpretation Comments Hct (test code = Hct) 35.9 36.0-48.0 [facility] CenterXthagmbKKOHNFQRFS9637-75-41 12:13:00 Test Item Value Reference Range Interpretation Comments Hgb (test code = Hgb) 12.3 12.0-16.0 [place] [address]32984-05-05 12:13:00 Test Item Value Reference Range Interpretation Comments WBC (test code = WBC) 5.1 3.7-10.4 [facility]2014-05-05 12:13:00 Test Item Value Reference Range Interpretation Comments Magnesium Lvl (test code = Magnesium 1.8 1.8-2.4 Lvl) [facility]2014-05-05 12:13:00 Test Item Value Reference Range Interpretation Comments Phosphorus (test code = Phosphorus) 2.6 2.5-4.5 [facility]2014-05-05 12:13:00 Test Item Value Reference Range Interpretation Comments Globulin (test code = Globulin) 2.8 2.0-4.0 [facility]2014-05-05 12:13:00 Test Item Value Reference Range Interpretation Comments A/G Ratio (test code = A/G Ratio) 1.2 0.7-1.6 [facility]2014-05-05 12:13:00 Test Item Value Reference Range Interpretation Comments B/C Ratio (test code = B/C Ratio) 10 6-25 [facility]2014-05-05 12:13:00 Test Item Value Reference Range Interpretation Comments AGAP (test code = AGAP) 6.9 10.0-20.0 [facility]2014-05-05 12:13:00 Test Item Value Reference Range Interpretation Comments eGFR (test code = eGFR) 101 [facility]2014-05-05 12:13:00 Test Item Value Reference Range Interpretation Comments Glucose Lvl (test code = Glucose Lvl) 84 70-99 [facility]2014-05-05 12:13:00 Test Item Value Reference Range Interpretation Comments Potassium Lvl (test code = Potassium 3.9 3.5-5.1 Lvl) [facility]2014-05-05 12:13:00 Test Item Value Reference Range Interpretation Comments Sodium Lvl (test code = Sodium Lvl) 141 135-145 [facility]2014-05-05 12:13:00 Test Item Value Reference Range Interpretation Comments Creatinine Lvl (test code = Creatinine 0.7 0.5-1.4 Lvl) [facility]2014-05-05 12:13:00 Test Item Value Reference Range Interpretation Comments BUN (test code = BUN) 7 7-22 [place] [address]354-05-05 12:13:00 Test Item Value Reference Range Interpretation Comments Bili Total (test code = Bili Total) 0.3 0.2-1.3 [facility]2014-05-05 12:13:00 Test Item Value Reference Range Interpretation Comments Alk Phos (test code = Alk Phos) 71 39-136 [facility]2014-05-05 12:13:00 Test Item Value Reference Range Interpretation Comments AST (test code = AST) 21 See_Comment [Auto mated message] The system which ge nerated this result transmit ulysses reference range : <=37. The reference range was not used to interpr et this result as sharron l/abnormal. [place] [address]354-05-05 12:13:00 Test Item Value Reference Range Interpretation Comments ALT (test code = ALT) 20 See_Comment [Auto mated message] The system which ge nerated this result transmit ulysses reference range : <=65. The reference range was not used to interpr et this result as sharron l/abnormal. [place] [address]354-05-05 12:13:00 Test Item Value Reference Range Interpretation Comments Total Protein (test code = Total 6.1 6.4-8.4 Protein) [facility]2014-05-05 12:13:00 Test Item Value Reference Range Interpretation Comments CO2 (test code = CO2) 33 24-32 [facility]2014-05-05 12:13:00 Test Item Value Reference Range Interpretation Comments Albumin Lvl (test code = Albumin Lvl) 3.3 3.5-5.0 [facility]2014-05-05 12:13:00 Test Item Value Reference Range Interpretation Comments Calcium Lvl (test code = Calcium Lvl) 8.4 8.5-10.5 [facility]2014-05-05 12:13:00 Test Item Value Reference Range Interpretation Comments Chloride Lvl (test code = Chloride Lvl) 105 95-109 [facility] CenterErlqoawIOIEXSJLZR1345-51-38 12:13:00 Test Item Value Reference Range Interpretation Comments Basophils # (test code 0.0 See_Comment [Aut omated message] The = Basophils #) system which generated this result tra nsmitted reference range : <=0.2. The reference r jamaica was not used to int erpret this result as normal/abnormal . [facility] CenterQqrprnqLOSNRLXXFI6880-66-63 12:13:00 Test Item Value Reference Range Interpretation Comments Segs (test code = Segs) 63.5 45.0-75.0 [facility] CenterQlezpgnYKTLYPBDGK3381-89-93 12:13:00 Test Item Value Reference Range Interpretation Comments Monocytes # (test code 0.3 See_Comment [Aut omated message] The = Monocytes #) system which generated this result tra nsmitted reference range : <=0.8. The reference r jamaica was not used to int erpret this result as normal/abnormal . [facility] CenterHhnvmoeRQSIQCIRHN0710-93-76 12:13:00 Test Item Value Reference Range Interpretation Comments Basophils (test code = 0.2 See_Comment [Aut omated message] The Basophils) system which ge nerated this result tra nsmitted reference range : <=1.0. The reference r jamaica was not used to int erpret this result as normal/abnormal . [facility] CenterBxskuvhRNEFAHXQLJ3012-52-39 12:13:00 Test Item Value Reference Range Interpretation Comments Lymphocytes # (test code = Lymphocytes 1.5 1.0-5.5 #) [facility] CenterTzlpyedKJKAGYOPIM3153-05-46 12:13:00 Test Item Value Reference Range Interpretation Comments Segs-Bands # (test code = Segs-Bands #) 3.3 1.5-8.1 [facility] CenterKwwirpmFASRZRAKSD4368-77-51 12:13:00 Test Item Value Reference Range Interpretation Comments Eosinophils # (test code 0.1 See_Comment [A utomated message] The = Eosinophils #) system whic h generated this result tra nsmitted reference range : <=0.5. The reference r jamaica was not used to int erpret this result as normal/abnormal . [facility] CenterBsuwusoLZLEHSGQSX5113-67-98 12:13:00 Test Item Value Reference Range Interpretation Comments Lymphocytes (test code = Lymphocytes) 28.9 20.0-40.0 [facility] CenterDxgaepwNHWXWZHFSC4214-76-54 12:13:00 Test Item Value Reference Range Interpretation Comments Monocytes (test code = Monocytes) 6.2 2.0-12.0 [facility] CenterQwmahpmEGBBODPTXT8060-65-20 12:13:00 Test Item Value Reference Range Interpretation Comments Eosinophils (test code = 1.2 See_Comment [A utomated message] The Eosinophils) system which ge nerated this result tra nsmitted reference range : <=4.0. The reference r jamaica was not used to int erpret this result as normal/abnormal . [facility] CenterCoquivwDHJUNKZTAV9201-41-27 12:13:00 Test Item Value Reference Range Interpretation Comments MCHC (test code = MCHC) 34.3 32.0-36.0 [facility] CenterJkdooebJBCGWRICTO5740-96-09 12:13:00 Test Item Value Reference Range Interpretation Comments RDW (test code = RDW) 16.5 11.5-14.5 [facility] CenterPvnjaboZANMMQKTUI7632-47-32 12:13:00 Test Item Value Reference Range Interpretation Comments MCH (test code = MCH) 31.5 pg 27.0-31.0 [facility] CenterNexxkonVKGOECPOPA9000-26-59 12:13:00 Test Item Value Reference Range Interpretation Comments MCV (test code = MCV) 91.9 81.0-99.0 [facility] CenterGeytmlrFFXEQWHIAB1108-06-42 12:13:00 Test Item Value Reference Range Interpretation Comments Platelet (test code = Platelet) 177 133-450 [facility] CenterNacufezCRMXKZLWJS3735-02-46 12:13:00 Test Item Value Reference Range Interpretation Comments MPV (test code = MPV) 7.9 7.4-10.4 [facility] CenterMgegyiuNCTPIQQONG2955-65-33 12:13:00 Test Item Value Reference Range Interpretation Comments RBC (test code = RBC) 3.91 4.20-5.40 [facility] CenterQekxeapNSCZJMUUUN7661-76-91 12:13:00 Test Item Value Reference Range Interpretation Comments Hct (test code = Hct) 35.9 36.0-48.0 [facility] CenterIkcabyzGDQSRSNILC0377-63-90 12:13:00 Test Item Value Reference Range Interpretation Comments Hgb (test code = Hgb) 12.3 12.0-16.0 [facility] CenterZyypgnaJWZDKXSYMB2614-60-68 12:13:00 Test Item Value Reference Range Interpretation Comments WBC (test code = WBC) 5.1 3.7-10.4 [facility]2014-05-05 12:13:00 Test Item Value Reference Range Interpretation Comments Magnesium Lvl (test code = Magnesium 1.8 1.8-2.4 Lvl) [facility]2014-05-05 12:13:00 Test Item Value Reference Range Interpretation Comments Phosphorus (test code = Phosphorus) 2.6 2.5-4.5 [facility]2014-05-05 12:13:00 Test Item Value Reference Range Interpretation Comments Globulin (test code = Globulin) 2.8 2.0-4.0 [facility]2014-05-05 12:13:00 Test Item Value Reference Range Interpretation Comments A/G Ratio (test code = A/G Ratio) 1.2 0.7-1.6 [facility]2014-05-05 12:13:00 Test Item Value Reference Range Interpretation Comments B/C Ratio (test code = B/C Ratio) 10 6-25 [facility]2014-05-05 12:13:00 Test Item Value Reference Range Interpretation Comments AGAP (test code = AGAP) 6.9 10.0-20.0 [facility]2014-05-05 12:13:00 Test Item Value Reference Range Interpretation Comments eGFR (test code = eGFR) 101 [facility]2014-05-05 12:13:00 Test Item Value Reference Range Interpretation Comments Glucose Lvl (test code = Glucose Lvl) 84 70-99 [facility]2014-05-05 12:13:00 Test Item Value Reference Range Interpretation Comments Potassium Lvl (test code = Potassium 3.9 3.5-5.1 Lvl) [facility]2014-05-05 12:13:00 Test Item Value Reference Range Interpretation Comments Sodium Lvl (test code = Sodium Lvl) 141 135-145 [place] [address]55354-05-05 12:13:00 Test Item Value Reference Range Interpretation Comments Creatinine Lvl (test code = Creatinine 0.7 0.5-1.4 Lvl) [facility]2014-05-05 12:13:00 Test Item Value Reference Range Interpretation Comments BUN (test code = BUN) 7 7-22 [place] [address]55354-05-05 12:13:00 Test Item Value Reference Range Interpretation Comments Bili Total (test code = Bili Total) 0.3 0.2-1.3 [place] [address]55354-05-05 12:13:00 Test Item Value Reference Range Interpretation Comments Alk Phos (test code = Alk Phos) 71 39-136 [facility]2014-05-05 12:13:00 Test Item Value Reference Range Interpretation Comments AST (test code = AST) 21 See_Comment [Auto mated message] The system which ge nerated this result transmit ulysses reference range : <=37. The reference range was not used to interpr et this result as sharron l/abnormal. [place] [address]354-05-05 12:13:00 Test Item Value Reference Range Interpretation Comments ALT (test code = ALT) 20 See_Comment [Auto mated message] The system which ge nerated this result transmit ulysses reference range : <=65. The reference range was not used to interpr et this result as sharron l/abnormal. [place] [address]55354-05-05 12:13:00 Test Item Value Reference Range Interpretation Comments Total Protein (test code = Total 6.1 6.4-8.4 Protein) [place]55354-05-05 12:13:00 Test Item Value Reference Range Interpretation Comments CO2 (test code = CO2) 33 24-32 [place] [address]55354-05-05 12:13:00 Test Item Value Reference Range Interpretation Comments Albumin Lvl (test code = Albumin Lvl) 3.3 3.5-5.0 [facility]2014-05-05 12:13:00 Test Item Value Reference Range Interpretation Comments Calcium Lvl (test code = Calcium Lvl) 8.4 8.5-10.5 [facility]2014-05-05 12:13:00 Test Item Value Reference Range Interpretation Comments Chloride Lvl (test code = Chloride Lvl) 105 95-109 [facility] CenterFlghungLMVKAVVRRU8809-34-83 12:13:00 Test Item Value Reference Range Interpretation Comments Basophils # (test code 0.0 See_Comment [Aut omated message] The = Basophils #) system which generated this result tra nsmitted reference range : <=0.2. The reference r jamaica was not used to int erpret this result as normal/abnormal . [facility] CenterMzctwjgPKJMJQRJWZ3475-37-19 12:13:00 Test Item Value Reference Range Interpretation Comments Segs (test code = Segs) 63.5 45.0-75.0 [facility] CenterJggrovoOJJMNUOZBS3899-43-95 12:13:00 Test Item Value Reference Range Interpretation Comments Monocytes # (test code 0.3 See_Comment [Aut omated message] The = Monocytes #) system which generated this result tra nsmitted reference range : <=0.8. The reference r jamaica was not used to int erpret this result as normal/abnormal . [facility] CenterFjideczEKGRTMDURE8287-81-01 12:13:00 Test Item Value Reference Range Interpretation Comments Basophils (test code = 0.2 See_Comment [Aut omated message] The Basophils) system which ge nerated this result tra nsmitted reference range : <=1.0. The reference r jamaica was not used to int erpret this result as normal/abnormal . [facility] CenterVtfknqiRBVXCJPHKS0474-75-21 12:13:00 Test Item Value Reference Range Interpretation Comments Lymphocytes # (test code = Lymphocytes 1.5 1.0-5.5 #) [facility] CenterHqhxqupXNTMHRPIXT2245-81-36 12:13:00 Test Item Value Reference Range Interpretation Comments Segs-Bands # (test code = Segs-Bands #) 3.3 1.5-8.1 [facility] CenterSyzxlfcZWWCYHFHCA0430-06-43 12:13:00 Test Item Value Reference Range Interpretation Comments Eosinophils # (test code 0.1 See_Comment [A utomated message] The = Eosinophils #) system whic h generated this result tra nsmitted reference range : <=0.5. The reference r jamaica was not used to int erpret this result as normal/abnormal . [facility] CenterCyzseuqORAWQQFBSH7412-65-09 12:13:00 Test Item Value Reference Range Interpretation Comments Lymphocytes (test code = Lymphocytes) 28.9 20.0-40.0 [facility] CenterFbaowplAGSWRIKKGO5981-06-86 12:13:00 Test Item Value Reference Range Interpretation Comments Monocytes (test code = Monocytes) 6.2 2.0-12.0 [facility] CenterCdgbinqZYCVZVYXBG4276-76-95 12:13:00 Test Item Value Reference Range Interpretation Comments Eosinophils (test code = 1.2 See_Comment [A utomated message] The Eosinophils) system which ge nerated this result tra nsmitted reference range : <=4.0. The reference r jamaica was not used to int erpret this result as normal/abnormal . [facility] CenterVstyovdOYCSCHRQWL5273-09-53 12:13:00 Test Item Value Reference Range Interpretation Comments MCHC (test code = MCHC) 34.3 32.0-36.0 [facility] CenterPhssbpyFXLRLPMVIH4276-05-47 12:13:00 Test Item Value Reference Range Interpretation Comments RDW (test code = RDW) 16.5 11.5-14.5 [facility] CenterCkuvetwPDSVPCLROQ5437-44-89 12:13:00 Test Item Value Reference Range Interpretation Comments MCH (test code = MCH) 31.5 pg 27.0-31.0 [facility] CenterLmxrgauRLTRGTQOME4328-53-68 12:13:00 Test Item Value Reference Range Interpretation Comments MCV (test code = MCV) 91.9 81.0-99.0 [facility] CenterDmhijolARVEZZBDLZ2629-01-99 12:13:00 Test Item Value Reference Range Interpretation Comments Platelet (test code = Platelet) 177 133-450 [facility] CenterPusxxoySLAIXZNGQJ1477-27-96 12:13:00 Test Item Value Reference Range Interpretation Comments MPV (test code = MPV) 7.9 7.4-10.4 [facility] CenterTnvnyejFKKZNPKFJS5025-70-70 12:13:00 Test Item Value Reference Range Interpretation Comments RBC (test code = RBC) 3.91 4.20-5.40 [facility] CenterHbvpiwxXSVMRRNSGS8479-99-13 12:13:00 Test Item Value Reference Range Interpretation Comments Hct (test code = Hct) 35.9 36.0-48.0 [facility] CenterJpnrxluFVAVLLRYOF3644-97-38 12:13:00 Test Item Value Reference Range Interpretation Comments Hgb (test code = Hgb) 12.3 12.0-16.0 [facility] CenterMiebrwnAONLFAWFNU4300-57-22 12:13:00 Test Item Value Reference Range Interpretation Comments WBC (test code = WBC) 5.1 3.7-10.4 [facility]2014-05-05 12:13:00 Test Item Value Reference Range Interpretation Comments Magnesium Lvl (test code = Magnesium 1.8 1.8-2.4 Lvl) [facility]2014-05-05 12:13:00 Test Item Value Reference Range Interpretation Comments Phosphorus (test code = Phosphorus) 2.6 2.5-4.5 [facility]2014-05-05 12:13:00 Test Item Value Reference Range Interpretation Comments Globulin (test code = Globulin) 2.8 2.0-4.0 [facility]2014-05-05 12:13:00 Test Item Value Reference Range Interpretation Comments A/G Ratio (test code = A/G Ratio) 1.2 0.7-1.6 [facility]2014-05-05 12:13:00 Test Item Value Reference Range Interpretation Comments B/C Ratio (test code = B/C Ratio) 10 6-25 [facility]2014-05-05 12:13:00 Test Item Value Reference Range Interpretation Comments AGAP (test code = AGAP) 6.9 10.0-20.0 [facility]2014-05-05 12:13:00 Test Item Value Reference Range Interpretation Comments eGFR (test code = eGFR) 101 [facility]2014-05-05 12:13:00 Test Item Value Reference Range Interpretation Comments Glucose Lvl (test code = Glucose Lvl) 84 70-99 [facility]2014-05-05 12:13:00 Test Item Value Reference Range Interpretation Comments Potassium Lvl (test code = Potassium 3.9 3.5-5.1 Lvl) [facility]2014-05-05 12:13:00 Test Item Value Reference Range Interpretation Comments Sodium Lvl (test code = Sodium Lvl) 141 135-145 [facility]2014-05-05 12:13:00 Test Item Value Reference Range Interpretation Comments Creatinine Lvl (test code = Creatinine 0.7 0.5-1.4 Lvl) [facility]2014-05-05 12:13:00 Test Item Value Reference Range Interpretation Comments BUN (test code = BUN) 7 7-22 [place] [id number] 12:13:00 Test Item Value Reference Range Interpretation Comments Bili Total (test code = Bili Total) 0.3 0.2-1.3 [facility]2014-05-05 12:13:00 Test Item Value Reference Range Interpretation Comments Alk Phos (test code = Alk Phos) 71 39-136 [facility]2014-05-05 12:13:00 Test Item Value Reference Range Interpretation Comments AST (test code = AST) 21 See_Comment [Auto mated message] The system which ge nerated this result transmit ulysses reference range : <=37. The reference range was not used to interpr et this result as sharron l/abnormal. [facility]2014-05-05 12:13:00 Test Item Value Reference Range Interpretation Comments ALT (test code = ALT) 20 See_Comment [Auto mated message] The system which ge nerated this result transmit ulysses reference range : <=65. The reference range was not used to interpr et this result as sharron l/abnormal. [facility]2014-05-05 12:13:00 Test Item Value Reference Range Interpretation Comments Total Protein (test code = Total 6.1 6.4-8.4 Protein) [facility]2014-05-05 12:13:00 Test Item Value Reference Range Interpretation Comments CO2 (test code = CO2) 33 24-32 [place] [id number] 12:13:00 Test Item Value Reference Range Interpretation Comments Albumin Lvl (test code = Albumin Lvl) 3.3 3.5-5.0 [place] [id number] 12:13:00 Test Item Value Reference Range Interpretation Comments Calcium Lvl (test code = Calcium Lvl) 8.4 8.5-10.5 [facility]2014-05-05 12:13:00 Test Item Value Reference Range Interpretation Comments Chloride Lvl (test code = Chloride Lvl) 105 95-109 [facility] CenterMaykfwrZOFLFKIPVH5625-21-18 12:13:00 Test Item Value Reference Range Interpretation Comments Basophils # (test code 0.0 See_Comment [Aut omated message] The = Basophils #) system which generated this result tra nsmitted reference range : <=0.2. The reference r jamaica was not used to int erpret this result as normal/abnormal . [facility] CenterOzsalecPPIVPMFBUJ3150-55-04 12:13:00 Test Item Value Reference Range Interpretation Comments Segs (test code = Segs) 63.5 45.0-75.0 [facility] [id number] 12:13:00 Test Item Value Reference Range Interpretation Comments Monocytes # (test code 0.3 See_Comment [Aut omated message] The = Monocytes #) system which generated this result tra nsmitted reference range : <=0.8. The reference r jamaica was not used to int erpret this result as normal/abnormal . [facility] CenterGnwhstoOIWGFFAHYY8784-89-22 12:13:00 Test Item Value Reference Range Interpretation Comments Basophils (test code = 0.2 See_Comment [Aut omated message] The Basophils) system which ge nerated this result tra nsmitted reference range : <=1.0. The reference r jamaica was not used to int erpret this result as normal/abnormal . [facility] CenterBdohnruOINOPWBQZL3128-04-97 12:13:00 Test Item Value Reference Range Interpretation Comments Lymphocytes # (test code = Lymphocytes 1.5 1.0-5.5 #) [facility] CenterMxtkdpyTAASRGUQSG0363-06-25 12:13:00 Test Item Value Reference Range Interpretation Comments Segs-Bands # (test code = Segs-Bands #) 3.3 1.5-8.1 [facility] CenterFiwripwQEPZFQPPBW9232-00-35 12:13:00 Test Item Value Reference Range Interpretation Comments Eosinophils # (test code 0.1 See_Comment [A utomated message] The = Eosinophils #) system whic h generated this result tra nsmitted reference range : <=0.5. The reference r jamaica was not used to int erpret this result as normal/abnormal . [facility] CenterLrbyeywPCVKGIWVAI0877-21-28 12:13:00 Test Item Value Reference Range Interpretation Comments Lymphocytes (test code = Lymphocytes) 28.9 20.0-40.0 [facility] CenterCuyoaiaGLLEMZMWOD5691-78-53 12:13:00 Test Item Value Reference Range Interpretation Comments Monocytes (test code = Monocytes) 6.2 2.0-12.0 [facility] CenterBzbnngtZJSRHXFYDJ5423-42-94 12:13:00 Test Item Value Reference Range Interpretation Comments Eosinophils (test code = 1.2 See_Comment [A utomated message] The Eosinophils) system which ge nerated this result tra nsmitted reference range : <=4.0. The reference r jamaica was not used to int erpret this result as normal/abnormal . [facility] CenterRokcbsrPGPSGKVHSV4952-58-76 12:13:00 Test Item Value Reference Range Interpretation Comments MCHC (test code = MCHC) 34.3 32.0-36.0 [facility] CenterZkzjapwNXRGZXMHQK7978-41-18 12:13:00 Test Item Value Reference Range Interpretation Comments RDW (test code = RDW) 16.5 11.5-14.5 [facility] [id number] 12:13:00 Test Item Value Reference Range Interpretation Comments MCH (test code = MCH) 31.5 pg 27.0-31.0 [facility] CenterJjasnxhWHYXGCBOVV3102-01-59 12:13:00 Test Item Value Reference Range Interpretation Comments MCV (test code = MCV) 91.9 81.0-99.0 [facility] CenterDhjgfzeSWTCSWPZTD9277-24-80 12:13:00 Test Item Value Reference Range Interpretation Comments Platelet (test code = Platelet) 177 133-450 [facility] CenterYuvvlqzLBTREZOFFO6050-66-16 12:13:00 Test Item Value Reference Range Interpretation Comments MPV (test code = MPV) 7.9 7.4-10.4 [facility] CenterLsjuqdfZNIAHXRZHU4044-40-73 12:13:00 Test Item Value Reference Range Interpretation Comments RBC (test code = RBC) 3.91 4.20-5.40 [facility] CenterOjkelroSMGKFVWUYE0874-08-39 12:13:00 Test Item Value Reference Range Interpretation Comments Hct (test code = Hct) 35.9 36.0-48.0 [facility] CenterBpwrtreDMJPJZEGFZ1182-34-75 12:13:00 Test Item Value Reference Range Interpretation Comments Hgb (test code = Hgb) 12.3 12.0-16.0 [facility] CenterZlqehrxBNIYYHEGAS9641-33-74 12:13:00 Test Item Value Reference Range Interpretation Comments WBC (test code = WBC) 5.1 3.7-10.4 [facility]
[2022-10-04] MEDS ORDERED: KETOROLAC 30 MG/ML INJ ONE (10:15)
[2022-10-04 10:18] LABS: Absolute Lymphocytes (CBC) 4.3 K/uL (0.7-4.9); Hematocrit 42.2 % (36.0-45.0); Lymphocytes % 52.2 % (15.3-44.8); MCV 90.2 fL (80-100); MPV 8.4 fL (7.6-11.3); RBC Red Blood Cell Count 4.68 M/uL (3.86-4.86)
--- NOTE | 2022-10-04 10:24 | RAD REPORT ---
EXAM DESCRIPTION: RAD - Chest Single View - 10/04/2022 10:17 am CLINICAL HISTORY: CHEST PAIN COMPARISON: Portable 05/12/2022 TECHNIQUE: AP portable chest image was obtained 10/04/2022 10:17 am . FINDINGS: No focal mass or consolidation. Interstitial pattern is prominent but not clearly differen t from the comparison. No new or enlarging hilar mass or lymphadenopathy identifiable. Heart and vasc ulature are normal. No measurable pleural effusion and no pneumothorax. No acute bony abnormality see n. No acute aortic findings suspected. IMPRESSION: Chronic interstitial pattern with no focal mass or consolidation. Severity of chronic pattern could mask minimal edema or infiltrate.
[2022-10-04 10:38] LABS: Bilirubin Direct 0.2 mg/dL (0-0.2); Bilirubin Total 0.6 mg/dL (0.2-1.0); Magnesium 1.9 mg/dL (1.6-2.4); Potassium 3.8 mmol/L (3.5-5.1); Protein, Total 7.5 g/dL (6.4-8.2); Troponin High Sensitivity 4.4 pg/mL (<58.9)
--- NOTE | 2022-10-04 10:42 | ER ---
Nurse's Notes [facility] Name: Tita Elizabeth Age: 57 yrs Sex: Female : 1965 Arrival Date: 10/04/2022 Time: 09:41 Bed 13 Private MD: Diagnosis: Chest pain, neck pain, malaise Presentation: 10/04 09:49 Chief complaint: Patient states: Chest tightness, hypertension, headache, left sided ld1 neck pain and dizziness X 1 day. Coronavirus screen: At this time, the client does not indicate any symptoms associated with coronavirus-19. Ebola Screen: No symptoms or risks identified at this time. Initial Sepsis Screen: Does the patient meet any 2 criteria? No. Patient's initial sepsis screen is negative. Does the patient have a suspected source of infection? No. Patient's initial sepsis screen is negative. Risk Assessment: Do you want to hurt yourself or someone else? Patient reports no desire to harm self or others. Onset of symptoms was October 04, 2022. 09:49 Method Of Arrival: Ambulatory ld1 09:49 Acuity: JAY 3 ld1 Triage Assessment: 09:49 General: Appears in no apparent distress. comfortable, Behavior is calm, cooperative, ld1 appropriate for age. Pain: Complains of pain in face, chest and neck Pain does not radiate. Pain currently is 9 out of 10 on a pain scale. Quality of pain is described as throbbing. EENT: No signs and/or symptoms were reported regarding the EENT system. Neuro: Level of Consciousness is awake, alert, obeys commands, Oriented to person, place, time, situation. Cardiovascular: Capillary refill < 3 seconds Patient's skin is warm and dry. Rhythm is sinus rhythm. Respiratory: Airway is patent Respiratory effort is even, unlabored. GI: Abdomen is flat, non-distended. : No signs and/or symptoms were reported regarding the genitourinary system. Derm: No signs and/or symptoms reported regarding the dermatologic system. Musculoskeletal: No signs and/or symptoms reported regarding the musculoskeletal system. Historical: - Allergies: 09:47 Sulfa (Sulfonamide Antibiotics); ld1 - Home Meds: 09:47 atorvastatin Oral 1 tab [Active]; losartan Oral [Active]; carvedilol 12.5 mg oral tab 1 ld1 tab 2 times per day [Active]; - PMHx: 09:47 Arthritis; HTN; ld1 - PSHx: 09:47 Appendectomy; Tonsillectomy; Hysterectomy; ld1 - Immunization history:: Adult Immunizations up to date, Client reports receiving the 2nd dose of the Covid vaccine. - Social history:: Smoking status: Patient reports the use of cigarette tobacco products, smokes one-half pack cigarettes per day, Patient uses street drugs, marijuana, Patient/guardian denies using alcohol. Screenin:15 [facility] ED Fall Risk Assessment (Adult) History of falling in the last 3 months, ph including since admission No falls in past 3 months (0 pts) Confusion or Disorientation No (0 pts) Intoxicated or Sedated No (0 pts) Impaired Gait No (0 pts) Mobility Assist Device Used No (0 pt) Altered Elimination No (0 pt) Score/Fall Risk Level 0 - 2 = Low Risk Oriented to surroundings, Maintained a safe environment, Hourly rounding (assess needs \T\ fall precautionary measures) done. Abuse screen: Denies threats or abuse. Denies injuries from another. Nutritional screening: No deficits noted. Tuberculosis screening: No symptoms or risk factors identified. Assessment: 10:14 General: Appears in no apparent distress. Behavior is calm, cooperative, appropriate ph for age. Pain: Complains of pain in chest Pain radiates to left sternocleidomastoid. Neuro: Level of Consciousness is awake, alert, obeys commands, Oriented to person, place, time, situation. Neuro: Reports headache. Cardiovascular: Reports chest pain, lightheadedness. Respiratory: Airway is patent Respiratory effort is even, unlabored, Respiratory pattern is regular, symmetrical. Derm: Skin is healthy with good turgor, Skin is pink, warm \T\ dry. Vital Signs: 09:49 BP 122 / 80; Pulse 57; Resp 18; Temp 98.2(O); Pulse Ox 97% on R/A; Weight 58.97 kg; ld1 Height 5 ft. 2 in. (157.48 cm); Pain 10/10; 10:16 Pulse 55; Resp 16; Pulse Ox 96% on R/A; ph 11:23 BP 118 / 78; Pulse 56; Resp 18; Temp 98.0; Pulse Ox 97% on R/A; ph 09:49 Body Mass Index 23.78 (58.97 kg, 157.48 cm) ld1 ED Course: 09:41 Patient arrived in ED. mr 09:41 Ngozi Ashley MD is Attending Physician. sp3 09:49 Arm band placed on right wrist. ld1 09:50 Triage completed. ld1 10:05 Nahomi Kraft RN is Primary Nurse. ph 10:16 Patient has correct armband on for positive identification. Placed in gown. Bed in low ph position. Call light in reach. Side rails up X 1. Client placed on continuous cardiac and pulse oximetry monitoring. NIBP monitoring applied. Door closed. Noise minimized. 10:16 Inserted saline lock: 20 gauge in right antecubital area, using aseptic technique. ph Blood collected. Patient maintains SpO2 saturation greater than 95% on room air. 10:19 XRAY Chest (1 view) In Process Unspecified. EDMS 11:23 No provider procedures requiring assistance completed. IV discontinued, intact, ph bleeding controlled, No redness/swelling at site. Pressure dressing applied. Administered Medications: 10:15 Drug: Ketorolac 15 mg Route: IVP; Site: right antecubital; ph 11:21 Follow up: Response: No adverse reaction; Pain is decreased ph Medication: 10:16 VIS not applicable for this client. ph Outcome: 10:42 Discharge ordered by . sp3 11:23 Discharged to home ambulatory. ph 11:23 Condition: good 11:23 Discharge instructions given to patient, Instructed on discharge instructions, follow up and referral plans. Demonstrated understanding of instructions, follow-up care. 11:24 Patient left the ED. ph Signatures: Dispatcher [employer] [facility] Ingrid Cosme Nahomi Kraft, RN RN ph Carla Alanis RN RN ld1 Ngozi Ashley MD MD sp3
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
[2022-10-04 12:06] VITALS: BP 118/78; TEMP 98; O2SAT 97
[2022-10-04 12:30] LABS: Protime INR 0.97
== END 2022-10-04 11:24 | disposition home or self-care (01) ==
LOC: ER 09:38
DX: R07.89 Other chest pain (principal); M54.2 Cervicalgia; R53.81 Other malaise; I10 Essential (primary) hypertension; F17.210 Nicotine dependence, cigarettes, uncomplicated; Z88.2 Allergy status to sulfonamides
CPT/HCPCS: 36415; 71045; 80048; 80076; 83735; 83880; 84484; 85025; 85610; 93005

== ENCOUNTER 2023-01-17 13:25 | Emergency (ER) | payer OTHER ==
--- OUTSIDE RECORDS SUMMARY | 2023-01-17 13:49 | XMS REPORT | Continuity of Care Document ---
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 metoprolol 3-0 2023- No 50mg QD Take [address] [facility] succinate 1-10 -17 by mouth [facility] (TOPROL-XL) 00:00: 00:00 daily. Med ical 50 MG 24 hr 00 :00 Center tablet metoprolol 3-0 2023- No 50mg QD Take [address] [facility] succinate 1-10 -17 by mouth [facility] (TOPROL-XL) 00:00: 00:00 daily. Med ical 50 MG 24 hr 00 :00 Center tablet carvediloL 2021-083- No 12.5mg Take [address] [...] mouth Medica l 33 :00 daily . Center atorvastati 2021-08- No 40mg QD Take [address] [facility] (LIPITOR) 0-25 10-25 by mouth [facility] es 40 MG 15:46: 00:00 daily. Medical tablet 33 :00 Center metoprolol 2021-08- No 50mg QD Take [address] [facility] succinate 0-25 10-25 [facility] (TOPROL-XL) 15:46: 00:00 daily. Med ical 50 MG 24 hr 33 :00 Center tablet losartan 2021-08 No 100mg QD Take [address] [facility] (COZAAR) 25 0-25 10-25 mg by [facility] tablet 15:46: 00:00 mouth Medica l 33 :00 daily . [facility] atorvastati 2021-08- No 40mg QD Take [address] [facility] (LIPITOR) 0-25 10-25 by mouth [facility] 40 MG 15:46: 00:00 daily. Medical tablet 33 :00 Center metoprolol 2021-08 No 50mg QD Take [address] [facility] succinate 0-25 10-25 [facility] (TOPROL-XL) 15:46: 00:00 daily. Med ical 50 MG 24 hr 33 :00 [facility] tablet losartan 2021-08- No 100mg QD Take [address] [facility] [address] (COZAAR) 25 0-25 10-25 mg by [facility] tablet 15:46: 00:00 mouth Medica l 33 :00 daily . Center atorvastati 2021-08- No 40mg QD Take 40 [...] mouth Medica l 33 :00 daily . Center atorvastati 2021-08- No 40mg QD Take [address] [facility] (LIPITOR) 0-25 10-25 by mouth [facility] 40 MG 15:46: 00:00 daily. Medical tablet 33 :00 [facility] metoprolol 2021-08- No 50mg QD Take [address] [facility] succinate 0-25 10-25 [facility] (TOPROL-XL) 15:46: 00:00 daily. Med ical 50 MG 24 hr 33 :00 Center tablet losartan 2021-08- No 100mg QD Take [address] [facility] [address] (COZAAR) 25 0-25 10-25 mg by [facility] tablet 15:46: 00:00 mouth Medica l 33 :00 daily . [facility] atorvastati 2021-08- No 40mg QD Take [address] [facility] (LIPITOR) 0-25 10-25 by mouth [facility] 40 MG 15:46: 00:00 daily. Medical tablet 33 :00 Center metoprolol 2021-08- No 50mg QD Take [address] [facility] succinate 0-25 10-25 by [facility] (TOPROL-XL) 15:46: 00:00 daily. Med ical 50 MG 24 hr 33 :00 [facility] tablet losartan 2021-08- No 100mg QD Take [address] [facility] [address] (COZAAR) 25 0-25 10-25 mg by [facility] tablet 15:46: 00:00 mouth Medica l 33 :00 daily . [facility] omeprazole 2021-08 Yes 20mg QD Take [address] (PriLOSEC) 0-25 [facility] 20 MG 14:44: daily. Medical capsule 41 [facility] guaiFENesin 2021-08 Yes 1200mg QD Take 1,[address] [facility] [address] 1,200 mg 0-25 mg by [facility] Ta12 14:44: mouth Medical 41 daily. [facility] HYDROcodone 2021-08 Yes 1{tbl} Take 1 [facility] [...] before bedtime. . losartan 2021-08 Yes 100mg Take 4 Uni vers mg tablet 0-25 tablets by ity of 00:00: mouth. [address] atorvastati 2021-08 Yes 40mg Take 1 [facility] ers n 40 mg 0-25 tablet by ity of tablet 00:00: mouth. [place] [facility] losartan 25 2021-08 Yes 100mg Take 4 Uni vers mg tablet 0-25 tablets by ity of 00:00: mouth. [place] [facility] atorvastati 2021-08 Yes 40mg Take 1 Univ ers n 40 mg 0-25 tablet by ity of tablet 00:00: mouth. [place] [facility] losartan 25 2021-08 Yes 100mg Take 4 Uni vers mg tablet 0-25 tablets by ity of 00:00: mouth. [place] [facility] atorvastati 2021-08 Yes 40mg Take 1 Univ ers n 40 mg 0-25 tablet by ity of tablet 00:00: mouth. [address] losartan 25 2021-08 Yes 100mg Take 4 Uni vers mg tablet 0-25 tablets by ity of 00:00: mouth. [address] atorvastati 2021-08 Yes 40mg Take 1 Univ ers n 40 mg 0-25 tablet by ity of tablet 00:00: mouth. [address] losartan 2021-08 Yes 100mg QD Take 4 [...] [facility] (LIP[facility]) 0-25 tablet (40 Nroma kes 40 MG 00:00: mg total) Medical [...] 00 by mouth Center daily. aspirin 81 2021-08- No 81mg Take 1 Univ ers mg EC 0-25 10-26 tablet by ity of tablet 00:00: 04:59 mouth. [place] 00 :00 [facility] Branch aspirin 81 2021-08- No 81mg Take 1 Univ ers mg EC 0-25 10-26 tablet by ity of tablet 00:00: 04:59 mouth. [place] 00 :00 Medical Branch aspirin 81 2021-08- No 81mg Take 1 Univ ers mg EC 0-25 10-26 tablet by ity of tablet 00:00: 04:59 mouth. [place] 00 :00 Medical Branch aspirin 81 2021-2022- No 81mg Take 1 Univ ers mg EC 0-25 10-26 tablet by ity of tablet 00:00: 04:59 mouth. [place] 00 :00 Medical Branch aspirin 81 2021-3- No 81mg QD Take [address] [facility] EC 0-25 10-25 tablet (81 [facility] tablet 00:00: 23:59 mg total) Medic al 00 :00 by mouth Center daily. aspirin 81 2021-2022- No 81mg QD Take [address] [facility] MG EC 0-25 10-25 tablet (81 [facility] tablet 00:00: 23:59 mg total) Medic al 00 :00 by mouth Center daily. aspirin 81 2021-2022- No 81mg QD Take [address] [facility] MG EC 0-25 10-25 tablet (81 [facility] tablet 00:00: 23:59 mg total) Medic al 00 :00 by mouth Center daily. aspirin 81 2021-2022- No 81mg QD Take [address] [facility] MG EC 0-25 10-25 tablet (81 [facility] tablet 00:00: 23:59 mg total) Medic al 00 :00 by mouth Center daily. aspirin 81 2021-2022- No 81mg QD Take [address] [facility] MG EC 0-25 10-25 tablet (81 [facility] tablet 00:00: 23:59 mg total) Medic al 00 :00 by mouth Center daily. aspirin 81 2021-2022- No 81mg QD Take [address] [facility] MG EC 0-25 10-25 tablet (81 [facility] tablet 00:00: 23:59 mg total) Medic al 00 :00 by mouth Center daily. ALPRAZolam 2021-2021- No .5mg Take [address] [facility] (XANAX) 0.5 0-25 11-24 tablet [facility] MG tablet 00:00: 23:59 (0.5 mg Medi yesy 00 :00 total) by Center mouth 2 (two) times daily as needed for Anxiety for up to 30 days. Max Daily Amount: 1 mg ALPRAZolam 2021-2021- No .5mg Take [address] [facility] (XANAX) [...] by mouth Cent er tablet daily. metoprolol 2021-08- No 50mg QD Take 1 [...] QD Take [address] [facility] EC 9-19 10-25 tablet (81 [facility] tablet 00:00: 00:00 mg total) Medic al 00 :00 by mouth Center daily. ALPRAZolam 2-0 2022- No .5mg Take [address] [facility] (XANAX) 0.5 9-19 10-25 tablet [facility] MG tablet 00:00: 00:00 (0.5 mg Medi yesy 00 :00 total) by Center mouth 3 (three) times daily as needed for Anxiety for up to 10 doses. Max Daily Amount: 1.5 mg aspirin 81 2-0 2022- No 81mg QD Take [address] [facility] MG EC 9-19 10-25 tablet (81 [facility] tablet 00:00: 00:00 mg total) Medic al 00 :00 by mouth Center daily. ALPRAZolam 2021-0 2022- No .5mg Take [address] [facility] (XANAX) 0.5 9-19 10-25 tablet [facility] tablet 00:00: 00:00 (0.5 mg Medi yesy 00 :00 total) by Center mouth 3 (three) times daily as needed for Anxiety for up to 10 doses. Max Daily Amount: 1.5 mg aspirin 81 2-0 2022- No 81mg QD Take [address] [facility] MG EC 9-19 10-25 tablet (81 [facility] tablet 00:00: 00:00 mg total) Medic al 00 :00 by mouth Center daily. ALPRAZolam 2-0 2022- No .5mg Take [address] [facility] (XANAX) 0.5 9-19 10-25 tablet [facility] tablet 00:00: 00:00 (0.5 mg Medi yesy 00 :00 total) by Center mouth 3 (three) times daily as needed for Anxiety for up to 10 doses. Max Daily Amount: 1.5 mg aspirin 81 2-0 2022- No 81mg QD Take [address] [facility] MG EC 9-19 10-25 tablet (81 [facility] tablet 00:00: 00:00 mg total) Medic al 00 :00 by mouth Center daily. ALPRAZolam 2022-0 2022- No .5mg Take [address] [facility] (XANAX) 0.5 9-19 10-25 tablet [facility] tablet 00:00: 00:00 (0.5 mg Medi yesy 00 :00 total) by Center mouth 3 (three) times daily as needed for Anxiety for up to 10 doses. Max Daily Amount: 1.5 mg aspirin 81 2-0 2022- No 81mg QD Take [address] [facility] MG EC 05-16 10-25 tablet (81 [facility] tablet 00:00: 00:00 mg total) Medic al 00 :00 by mouth Center daily. ALPRAZolam 2021-0 2- No .5mg Take [address] [facility] (XANAX) 0.5 05-14 tablet [facility] tablet 00:00: 00:00 (0.5 mg Medi yesy 00 :00 total) by Center mouth 3 (three) times daily as needed for Anxiety for up to 9 doses. Max Daily Amount: 1.5 mg ALPRAZolam 2-0 2022- No .5mg Take [address] [facility] (XANAX) 0.5 05-14 tablet [facility] tablet 00:00: 00:00 (0.5 mg Medi yesy 00 :00 total) by Center mouth 3 (three) times daily as needed for Anxiety for up to 9 doses. Max Daily Amount: 1.5 mg ALPRAZolam 2-0 2022- No .5mg Take [address] [facility] (XANAX) 0.5 05-14 tablet [facility] tablet 00:00: 00:00 (0.5 mg Medi yesy 00 :00 total) by Center mouth 3 (three) times daily as needed for Anxiety for up to 9 doses. Max Daily Amount: 1.5 mg ALPRAZolam 2-0 2022- No .5mg Take [address] [facility] (XANAX) 0.5 05-14 tablet [facility] tablet 00:00: 00:00 (0.5 mg Medi yesy 00 :00 total) by Center mouth 3 (three) times daily as needed for Anxiety for up to 9 doses. Max Daily Amount: 1.5 mg ALPRAZolam 2-0 2022- No .5mg Take [address] [facility] (XANAX) 0.5 05-14 tablet [facility] tablet 00:00: 00:00 (0.5 mg Medi yesy 00 :00 total) by Center mouth 3 (three) times daily as needed for Anxiety for up to 9 doses. Max Daily Amount: 1.5 mg ALPRAZolam 2-0 2022- No .5mg Take [address] [facility] (XANAX) 0.5 05-14-19 tablet [facility] tablet 00:00: 00:00 (0.5 mg Medi yesy 00 :00 total) by Center mouth 3 (three) times daily as needed for Anxiety for up to 9 doses. Max Daily Amount: 1.5 mg metoprolol 2021- No 25mg Take 25 mg [facility] tartrate 25 11-30 04-05 by mouth. it y of mg tablet 11:13: 00:00 [place] 29 :00 Medical Branch cyanocobala 2021- No 1{tbl} Take 1 U nivers min, 11-30-05 tablet by ity of vitamin 11:13: 00:00 mouth. [place] B-12, 05 :00 Medical (VITAMIN Branch B-12 ORAL) citalopram 2021- No 40mg Take 40 mg [facility] 40 mg -05 04-05 by mouth. ity of tablet 11:12: 00:00 [place] 58 :00 [facility] Branch MULTIVITAMI Yes Take by Uni vers N ORAL 4-05 mouth. ity of 10:10: [address] MULTIVITAMI Yes Take by Uni vers N ORAL 4-05 mouth. ity of 10:10: [address] MULTIVITAMI Yes Take by Uni vers N ORAL 4-05 mouth. ity of 10:10: [address] MULTIVITAMI Yes Take by Uni vers N ORAL 4-05 mouth. ity of 10:10: [address] tizanidine 2021- No 4mg Take 4 mg U nivers HCl 4-05 04-05 by mouth. ity of (TIZANIDINE 10:10: 00:00 [place] ORAL) 14 :00 [facility] Branch meloxicam 0 Yes 15mg Take 15 mg Un alexi 15 mg 4-05 by mouth ity of tablet 10:06: daily. [address] MIRTAZAPINE 0 Yes 15mg Take 15 mg Univers ORAL 4-05 by mouth. ity of 10:06: [address] famotidine Yes 20mg Take 20 mg U nivers 20 mg 4-05 by mouth 2 ity of tablet 10:06: (two) [place] 34 times Medical daily. Branch atorvastati 2022-0 Yes 20mg Take 20 mg Univers n 20 mg 4-05 by mouth ity of tablet 10:06: at [place] [address] bedtime. Medical Branch meloxicam 2022-0 Yes 15mg Take 15 mg Un alexi 15 mg 4-05 by mouth ity of tablet 10:06: daily. [place] [address] Medical Branch MIRTAZAPINE 2022-0 Yes 15mg Take 15 mg Univers ORAL 4-05 by mouth. ity of 10:06: [place] [address] Medical Branch famotidine 2-0 Yes 20mg Take 20 mg U nivers 20 mg 4-05 by mouth 2 ity of tablet 10:06: (two) [place] [address] times Medical daily. Branch atorvastati 2-0 Yes 20mg Take 20 mg Univers n 20 mg 4-05 by mouth ity of tablet 10:06: at [place] [address] bedtime. Medical Branch meloxicam 2022-0 Yes 15mg Take 15 mg Un alexi 15 mg 4-05 by mouth ity of tablet 10:06: daily. [place] [address] Medical Branch MIRTAZAPINE 2-0 Yes 15mg Take 15 mg Univers ORAL 4-05 by mouth. ity of 10:06: [place] [address] Medical Branch famotidine 2-0 Yes 20mg Take 20 mg U nivers 20 mg 4-05 by mouth 2 ity of tablet 10:06: (two) [place] [address] times Medical daily. Branch atorvastati 2-0 Yes 20mg Take 20 mg Univers n 20 mg 4-05 by mouth ity of tablet 10:06: at [place] [address] bedtime. Medical Branch meloxicam 2022-0 Yes 15mg Take 15 mg Un alexi 15 mg 4-05 by mouth ity of tablet 10:06: daily. [place] [address] Medical Branch famotidine 2-0 Yes 20mg Take 20 mg U nivers 20 mg 4-05 by mouth 2 ity of tablet 10:06: (two) [place] [address] times Medical daily. Branch losartan 50 2-0 Yes 50mg Take 50 mg Univers mg tablet 4-05 by mouth ity of 09:52: daily. [address] Branch losartan 50 2021-0 Yes 50mg Take 50 mg Univers mg tablet 4-05 by mouth ity of 09:52: daily. [place] [address] Medical Branch losartan 50 2021-0 Yes 50mg Take 50 mg Univers mg tablet 4-05 by mouth ity of 09:52: daily. [address] estradioL 2021-0 Yes [id number] 1g Insert 1 g Univers 0.01 % (0.1 4-05 into ity of mg/gram) 00:00: vagina [facility] weekly. [facility] cream Branch estradioL 2021-0 Yes [id number] 1g Insert 1 g Univers 0.01 % (0.1 4-05 into ity of mg/gram) 00:00: vagina [facility] weekly. [facility] cream [place] estradioL 2021-0 Yes [id number] 1g Insert 1 g Univers 0.01 % (0.1 4-05 into ity of mg/gram) 00:00: vagina [facility] weekly. [facility] cream [place] estradioL 2021-0 Yes [id number] 1g Insert 1 g Univers 0.01 % (0.1 4-05 into ity of mg/gram) 00:00: vagina [facility] weekly. [facility] estradioL 2021-0 Yes [id number] 1g Insert 1 g Univers 0.01 % (0.1 4-05 into ity of mg/gram) 00:00: vagina [facility] weekly. [facility] cream [place] estradioL 2021-0 Yes [id number] 1g Insert 1 g Univers 0.01 % (0.1 4-05 into ity of mg/gram) 00:00: [facility] weekly. [facility] estradioL 2021-0 Yes [id number] 1g Insert 1 g Univers 0.01 % (0.1 4-05 into ity of mg/gram) 00:00: [facility] weekly. [facility] tiZANidine 2021-0 Yes Univers 4 mg tablet 4-04 ity of 00:00: [facility] tiZANidine 2021-0 Yes Univers 4 mg tablet 4-04 ity of 00:00: [place] 00 [facility] tiZANidine 2021-0 Yes Univers 4 mg tablet 4-04 ity of 00:00: 00 [facility] tiZANidine 2021-0 Yes Univers 4 mg tablet 4-04 ity of 00:00: 00 [facility] tiZANidine 2021-0 Yes Univers 4 mg tablet 4-04 ity of 00:00: [facility] tiZANidine 2021-0 Yes Univers 4 mg tablet 4-04 ity of 00:00: [place] 00 Medical Branch tiZANidine 2021-0 Yes Univers 4 mg tablet 11-29 ity of 00:00: [place] 00 Medical Branch mirtazapine 2021-0 2- No 15mg Take 15 mg Univers 15 mg 11-26 by mouth ity of tablet 00:00: 00:00 at [place] 00 :00 bedtime. Medical Branch eszopiclone 2021-0 Yes 3mg Take 3 mg U nivers 3 mg tablet 3-28 by mouth ity of 00:00: at [place] [address] bedtime. Medical Branch eszopiclone 2021-0 Yes 3mg Take 3 mg U nivers 3 mg tablet 3-28 by mouth ity of 00:00: at [place] [address] bedtime. Medical Branch eszopiclone 2021-0 Yes 3mg Take 3 mg U nivers 3 mg tablet 3-28 by mouth ity of 00:00: at [place] [address] bedtime. Medical Branch methocarbam 2021-0 Yes 500mg Take 500 U nivers oL 500 mg 3-10 mg by ity of tablet 00:00: mouth 2 [place] (two) Medical times Branch daily. HYDROcodone 2021-0 Yes 1{tbl} Take 1 Un alexi -acetaminop 3-10 tablet by ity of hen 5-325 00:00: mouth 3 [place] mg tablet 00 (three) Medical times Branch daily. methocarbam 2-0 Yes 500mg Take 500 U nivers oL 500 mg 3-10 mg by ity of tablet 00:00: mouth 2 [place] (two) Medical times Branch daily. HYDROcodone 2-0 Yes 1{tbl} Take 1 Un alexi -acetaminop 3-10 tablet by ity of hen 5-325 00:00: mouth 3 [place] mg tablet 00 (three) Medical times Branch daily. methocarbam 2022-0 Yes 500mg Take 500 U nivers oL 500 mg 3-10 mg by ity of tablet 00:00: mouth 2 [place] (two) Medical times Branch daily. HYDROcodone 2022-0 Yes 1{tbl} Take 1 Un alexi -acetaminop 3-10 tablet by ity of hen 5-325 00:00: mouth 3 [place] mg tablet 00 (three) Medical times Branch daily. methocarbam 2022-0 Yes 500mg Take 500 U nivers oL 500 mg 3-10 mg by ity of tablet 00:00: mouth 2 [place] 00 (two) Medical times Branch daily. methocarbam 2022-0 Yes 500mg Take 1 Uni vers oL 500 mg 3-10 tablet by ity o f tablet 00:00: mouth in [place] 00 the Medical morning Branch and 1 tablet in the evening. methocarbam 2022-0 Yes 500mg Take 1 Uni vers oL 500 mg 3-10 tablet by ity o f tablet 00:00: mouth in [place] 00 the Medical morning Branch and 1 tablet in the evening. methocarbam 2022-0 Yes 500mg Take 1 Uni vers oL 500 mg 3-10 tablet by ity o f tablet 00:00: mouth in [place] 00 the Medical morning Branch and 1 tablet in the evening. methocarbam 2022-0 Yes 500mg Q.5D Take [address] oL 3-10 mg by [facility] (ROBAXIN) 00:00: mouth 2 Medic al 500 MG 00 (two) Center tablet times daily. methocarbam 2022-0 2023- No 500mg Q.5D Take [address] [address] oL 3-10 01-17 mg by [facility] (ROBAXIN) 00:00: 00:00 mouth 2 Medi yesy 500 MG 00 :00 (two) Center tablet times daily. methocarbam 2022-0 2023- No 500mg Q.5D Take [address] oL 3-10 01-17 mg by [facility] (ROBAXIN) 00:00: 00:00 mouth 2 Medi yesy 500 MG 00 :00 (two) Center tablet times daily. methocarbam 2022-0 2023- No 500mg Q.5D Take [address] oL 3-10 01-17 mg by [facility] (ROBAXIN) 00:00: 00:00 mouth 2 Medi yesy 500 MG 00 :00 (two) Center tablet times daily. methocarbam 2022-0 2023- No 500mg Q.5D Take [address] oL 3-10 01-17 mg by [facility] (ROBAXIN) 00:00: 00:00 mouth 2 Medi yesy 500 MG 00 :00 (two) Center tablet times daily. methocarbam 2022-0 2023- No 500mg Q.5D Take [address] oL 3-10 01-17 mg by [facility] (ROBAXIN) 00:00: 00:00 mouth 2 Medi yesy 500 MG 00 :00 (two) Center tablet times daily. meloxicam Yes TAKE 1 Univer s 7.5 mg 1-26 TABLET BY ity of tablet 00:00: MOUTH EVERY DAY Medical FOR 14 Branch DAYS meloxicam 0 Yes TAKE 1 Univer s 7.5 mg 1-26 TABLET BY ity of tablet 00:00: MOUTH EVERY DAY Medical FOR 14 Branch DAYS meloxicam Yes TAKE 1 Univer s 7.5 mg 1-26 TABLET BY ity of tablet 00:00: MOUTH EVERY DAY Medical FOR 14 Branch DAYS meloxicam Yes TAKE 1 Univer s 7.5 mg 1-26 TABLET BY ity of tablet 00:00: MOUTH EVERY DAY Medical FOR 14 Branch DAYS meloxicam 0 Yes TAKE 1 Univer s 7.5 mg 1-26 TABLET BY ity of tablet 00:00: MOUTH EVERY DAY Medical FOR 14 Branch DAYS meloxicam Yes TAKE 1 Univer s 7.5 mg 1-26 TABLET BY ity of tablet 00:00: MOUTH EVERY DAY Medical FOR 14 Branch DAYS meloxicam 0 Yes TAKE 1 Univer s 7.5 mg 1-26 TABLET BY ity of tablet 00:00: MOUTH EVERY DAY Medical FOR 14 Branch DAYS buPROPion 2021-0 Yes 150mg Take 150 Uni vers SR 150 mg 1-11 mg by ity of SR tablet 00:00: mouth (two) Medical times Branch daily. buPROPion 2021-0 Yes 150mg Take 150 Uni vers SR 150 mg 1-11 mg by ity of SR tablet 00:00: mouth (two) Medical times Branch daily. buPROPion 2021-0 Yes 150mg Take 150 Uni vers SR 150 mg 1-11 mg by ity of SR tablet 00:00: mouth (two) Medical times Branch daily. buPROPion 2021-0 Yes 150mg Take 150 Uni vers SR 150 mg 1-11 mg by ity of SR tablet 00:00: mouth (two) Medical times Branch daily. buPROPion 2021-0 Yes 150mg Take 1 Unive rs SR 150 mg 1-11 tablet by ity o f SR tablet 00:00: [place] the Medical morning Branch and 1 tablet in the evening. buPROPion Yes 150mg Take 1 Unive rs SR 150 mg 1-11 tablet by ity o f SR tablet 00:00: [place] 00 the Medical morning Branch and 1 tablet in the evening. buPROPion 0 Yes 150mg Take 1 Unive rs SR 150 mg 1-11 tablet by ity o f SR tablet 00:00: [place] 00 the Medical morning Branch and 1 tablet in the evening. oxybutynin 2019-08 Yes [id number] 10mg Take 1 Univers 10 mg 24 hr 1-05 tablet by ity of tablet 00:00: mouth [place] 00 daily. [facility] oxybutynin 2019-08 Yes [id number] 10mg Take 1 Univers 10 mg 24 hr 1-05 tablet by ity of tablet 00:00: mouth [place] 00 daily. [facility] oxybutynin 2019-08 Yes [id number] 10mg Take 1 Univers 10 mg 24 hr 1-05 tablet by ity of tablet 00:00: mouth [place] 00 daily. [facility] oxybutynin 2019-08 Yes [id number] 10mg Take 1 Univers 10 mg 24 hr 1-05 tablet by ity of tablet 00:00: mouth [place] 00 daily. [facility] oxybutynin 2019-08 Yes [id number] 10mg Take 1 Univers 10 mg 24 hr 1-05 tablet by ity of tablet 00:00: mouth [place] 00 daily. [facility] oxybutynin 2019-08 Yes [id number] 10mg Take 1 Univers 10 mg 24 hr 1-05 tablet by ity of tablet 00:00: mouth [place] 00 daily. [facility] oxybutynin 2019-08 Yes [id number] 10mg Take 1 Univers 10 mg 24 hr 1-05 tablet by ity of tablet 00:00: mouth [place] 00 daily. [facility] methylPREDN 2019-08- No [id number] Take by Univers ISolone 1-05 04-05 mouth ity of (MEDROL, 00:00: 00:00 [place]NY[place] 4 mg 00 :00 CTIONS. Medica l tablets follow Branch package directions naproxen 2019-08- No [id number] 550mg Take 1 Univers sodium 1-05 04-05 tablet by ity of (ANAPROX 00:00: 00:00 mouth 2 [place] DS) 550 mg 00 :00 (two) Medical tablet times Branch daily with meals. acetaminoph 2021- No [id number] 1{tbl} Take 1 U nivers en-codeine 7-16 12-05 tablet by ity of (TYLENOL-CO 00:00: 00:[place] DE[place] #3[place] 00 :00 every 4 Medical 300-30 mg (four) Branch tablet hours as needed for Pain (scale 7-10). Indication s: acute pain cyclobenzap 2018-08- No [id number] 5mg Take 1 Univers rine 5 mg 0-05 tablet by ity of tablet 00:00: 00:00 mouth 3 [place] 00 :00 (three) Medical times Branch daily. gabapentin Yes Chronic 300mg Take 1 H [facility] (NEURONTIN) 4-15 left-sided capsule by Health 300 mg 00:00: low back mouth 2 capsule 00 pain with times sciatica, daily as sciatica needed for laterality Pain. unspecified gabapentin Yes Chronic 300mg Take 1 H [facility] (NEURONTIN) 4-15 left-sided capsule by Health 300 mg 00:00: low back mouth 2 capsule 00 pain with times sciatica, daily as sciatica needed for laterality Pain. unspecified cyclobenzap Yes Chronic 10mg Take 1 H arris rine 4-15 left-sided tablet by [facility] (FLEXERIL) 00:00: low back mouth 2 10 mg 00 pain with times tablet sciatica, daily as sciatica needed for laterality Muscle unspecified Spasms. cyclobenzap Yes Chronic 10mg Take 1 H arris rine 4-15 left-sided tablet by [facility] (FLEXERIL) 00:00: low back mouth 2 [...] H arris rine 4-15 left-sided tablet by [facility] (FLEXERIL) 00:00: low back mouth 2 10 mg 00 pain with times tablet sciatica, daily as sciatica needed for laterality Muscle unspecified Spasms. gabapentin 2019 Yes Chronic 300mg Take 1 H [facility] (NEURONTIN) 4-15 left-sided capsule by Health 300 mg 00:00: low back mouth 2 capsule 00 pain with times sciatica, daily as sciatica needed for laterality Pain. unspecified cyclobenzap Yes Chronic 10mg Take 1 H arris rine 4-15 left-sided tablet by [facility] (FLEXERIL) 00:00: low back mouth 2 [...] H arris rine 4-15 left-sided tablet by [facility] (FLEXERIL) 00:00: low back mouth 2 [...] H arris rine 4-15 left-sided tablet by [facility] (FLEXERIL) 00:00: low back mouth 2 [...] H arris rine 4-15 left-sided tablet by [facility] (FLEXERIL) 00:00: low back mouth 2 [...] laterality Muscle unspecified Spasms. metoprolol Yes 25mg [id number] Take 25 mg [facility] tartrate 6-[id number] mouth [address] (LOPRESSOR) 18:26: 3D (three) Hos viral 25 mg 50 times a l tablet day. Note: Rx label states BID but pt takes TID. cyanocobala Yes 1{tbl} QD Take 1 Me thodi min, 6-[address] vitamin 18:26: mouth [facility]osp[facility] B-12, 50 daily. l (VITAMIN B-12 ORAL) naproxen 0 Yes 440mg Q24H Take 440 Meth [facility]oyd sodium 6-[address] (ALEVE) 220 18:26: mouth Hospi ta MG tablet 50 daily as l needed for mild pain. citalopram Yes 40mg QD Take 40 mg M ethodi (CeleXA) 40 6-[address] MG tablet 18:26: nightly. Hosp tasha 50 l metoprolol Yes 25mg Q.[id number] Take 25 mg Methodi tartrate 6-[id number] mouth [address] (LOPRESSOR) 18:26: 3D (three) Hos viral 25 mg 50 times a l tablet day. Note: Rx label states BID but pt takes TID. cyanocobala 2018-0 Yes 1{tbl} QD Take 1 Me thodi min, 6-[address] vitamin 18:26: [facility] B-12, 50 daily. l (VITAMIN B-12 ORAL) naproxen 2017-0 Yes 440mg Q24H Take 440 Meth floyd sodium 6-[address] (ALEVE) 220 18:26: [facility] ta MG tablet 50 daily as l needed for mild pain. citalopram 2018-0 Yes 40mg QD Take 40 mg M ethodi (CeleXA) 40 6-[address] MG tablet 18:26: nightly. [facility]osp [facility] 50 l metoprolol 2018-0 Yes 25mg Q.[id number] Take 25 mg [facility] tartrate 6-19 [id number] [address] mouth [address] (LOPRESSOR) 18:26: 3D [...] tasha 50 l metoprolol 2018-0 Yes 25mg Q.[id number] Take 25 mg [facility] tartrate 6-19 [id number] [address] mouth [address] (LOPRESSOR) 18:26: 3D [...] tasha 50 l metoprolol 2018-0 Yes 25mg Q.[id number] Take 25 mg [facility] tartrate 6-19 [id number] [address] mouth [address] (LOPRESSOR) 18:26: 3D [...] as l needed for mild pain. citalopram 20180 Yes 40mg QD Take 40 mg M [facility]i (CeleXA) 40 6-[address] MG tablet 18:26: nightly. [facility]osp t[facility] 50 l metoprolol 2017-0 Yes 25mg Q.[id number] Take 25 mg [facility] tartrate 6-19 [id number] by mouth [address] (LOPRESSOR) 18:26: 3D (three) Hos viral 25 mg 50 times a l tablet day. Note: Rx label states BID but pt takes TID. cyanocobala 2018-0 Yes 1{tbl} QD Take 1 Me thodi min, 6-[address] vitamin 18:26: [facility] B-12, 50 daily. l (VITAMIN B-12 ORAL) naproxen 0 Yes 440mg Q24H Take 440 Meth floyd sodium 6-[address] (ALEVE) 220 18:26: mouth [facility] ta MG tablet 50 daily as l needed for mild pain. citalopram 20180 Yes 40mg QD Take 40 mg M [facility]i (CeleXA) 40 6-[address] MG tablet 18:26: nightly. [facility]osp [facility] 50 l Ativan No Notes: [facility] 9-23 (Same as: l 14:26: Ativan) [place] 00 Ativan No Notes: [facility] 9-23 (Same as: l 14:26: Ativan) [place] 00 Ativan No Notes: [facility] 9-23 (Same as: l 14:26: Ativan) [place] 00 Ativan No Notes: [facility] 9-23 (Same as: l 14:26: Ativan) [place] 00 Ativan No Notes: [facility] 9-23 (Same as: l 14:26: Ativan) [place] No Notes: [facility] 9-23 (Same as: l 14:26: Ativan) ivan No Notes: [facility] 9-23 (Same as: l 14:26: Ativan) ivan No Notes: [facility] 9-23 (Same as: l 14:26: Ativan) ivan No Notes: [facility] 9-23 (Same as: l 14:26: Ativan) ivan No Notes: [facility] 9-23 (Same as: l 14:26: Ativan) Ativan No Notes: [facility] 9-23 (Same as: l 14:26: Ativan) ivan No Notes: [facility] 9-23 (Same as: l 14:26: Ativan) ivan No Notes: [facility] 9-23 (Same as: l [...] Acetaminoph No Notes: Do M emoria en - not exceed l 13:34: 4 gm/day. (Same [...] tab, PO, l tablet 12:18: Daily, 0 [place] 00 Refill(s) Klor-Con 10 Yes 10 mEq, [facility] 9-23 PO, Daily, l 12:18: 0 [place] 00 Refill(s) rOPINIRole Yes 1 mg = 1 [facility] 1 mg oral 9-23 tab, PO, l tablet 12:18: Daily, 0 [place] 00 Refill(s) Klor-Con 10 Yes 10 mEq, [facility] 9-23 PO, Daily, l 12:18: 0 [place] 00 Refill(s) rOPINIRole Yes 1 mg = 1 [facility] 1 mg oral 9-23 tab, PO, l tablet 12:18: Daily, 0 [place] 00 Refill(s) Klor-Con 10 Yes 10 mEq, [facility] 9-23 PO, Daily, l 12:18: 0 [place] 00 Refill(s) rOPINIRole Yes 1 mg = 1 [facility] 1 mg oral 9-23 tab, PO, l tablet 12:18: Daily, 0 [place] 00 Refill(s) Klor-Con 10 Yes 10 mEq, [facility] 9-23 PO, Daily, l 12:18: 0 [place] 00 Refill(s) rOPINIRole Yes 1 mg = 1 [facility] 1 mg oral 9-23 tab, PO, l tablet 12:18: Daily, 0 [place] 00 Refill(s) Klor-Con 10 Yes 10 mEq, [facility] 9-23 PO, Daily, l 12:18: 0 [place] 00 Refill(s) rOPINIRole Yes 1 mg = 1 [facility] 1 mg oral 9-23 tab, PO, l tablet 12:18: Daily, 0 [place] 00 Refill(s) Klor-Con 10 Yes 10 mEq, [facility] 9-23 PO, Daily, l 12:18: 0 [place] 00 Refill(s) rOPINIRole Yes 1 mg = 1 [facility] 1 mg oral 9-23 tab, PO, l tablet 12:18: Daily, 0 [place] 00 Refill(s) Klor-Con 10 Yes 10 mEq, [...] tab, PO, l tablet 12:18: Daily, 0 [place] 00 Refill(s) Klor-Con 10 Yes 10 mEq, [facility] 9-23 PO, Daily, l 12:18: 0 [place] 00 Refill(s) rOPINIRole Yes 1 mg = 1 [facility] 1 mg oral 9-23 tab, PO, l tablet 12:18: Daily, 0 [place] 00 Refill(s) Klor-Con 10 Yes 10 mEq, [facility] 9-23 PO, Daily, l 12:18: 0 [place] Refill(s) rOPINIRole 2013- Yes 1 mg = 1 [facility] 1 mg oral 9-23 tab, PO, l tablet 12:18: Daily, 0 [place] Refill(s) Klor-Con 10 Yes 10 mEq, [facility] 9-23 PO, Daily, l 12:18: 0 [place] 00 Refill(s) rOPINIRole 2013- Yes 1 mg = 1 [facility] 1 mg oral 9-23 tab, PO, l tablet 12:18: Daily, 0 [place] Refill(s) Klor-Con 10 Yes 10 mEq, [facility] 9-23 PO, Daily, l 12:18: 0 [place] 00 Refill(s) rOPINIRole 2013- Yes 1 mg = 1 [facility] 1 mg oral 9-23 tab, PO, l tablet 12:18: Daily, 0 [place] Refill(s) Klor-Con 10 Yes 10 mEq, [facility] 9-23 PO, Daily, l 12:18: 0 [place] 00 Refill(s) Hydrochloro 2013-0 Yes 1 tab, PO, [facility] thiazide 9-23 Daily, # l 12.5 MG / 03:00: 30 tab, 0 [facility] Losartan Refill(s) Potassium 50 MG Oral Tablet Hydrochloro Yes 1 tab, PO, [facility] thiazide 9-23 Daily, # l 12.5 MG / 03:00: 30 tab, 0 [place] Losartan Refill(s) Potassium 50 MG Oral Tablet Hydrochloro 2013-0 Yes 1 tab, PO, [facility] thiazide 9-23 Daily, # l 12.5 MG / 03:00: 30 tab, 0 [place] Losartan 00 Refill(s) Potassium 50 MG Oral Tablet Hydrochloro 2013-0 Yes 1 tab, PO, [facility] thiazide 9-23 Daily, # l 12.5 MG / 03:00: 30 tab, 0 [place] Losartan 00 Refill(s) Potassium 50 MG Oral Tablet Hydrochloro 2013-0 Yes 1 tab, PO, [facility] thiazide 9-23 Daily, # l 12.5 MG / 03:00: 30 tab, 0 [place] Losartan 00 Refill(s) Potassium 50 MG Oral Tablet Hydrochloro 2013-0 Yes 1 tab, PO, [facility] thiazide 9-23 Daily, # l 12.5 MG / 03:00: 30 tab, 0 [place] Losartan 00 Refill(s) Potassium 50 MG Oral Tablet Hydrochloro 2013-0 Yes 1 tab, PO, [facility] thiazide 9-23 Daily, # l 12.5 MG / 03:00: 30 tab, 0 [place] Losartan 00 Refill(s) Potassium 50 MG Oral Tablet Hydrochloro 2013-0 Yes 1 tab, PO, [facility] thiazide 9-23 [...] Refill(s) Potassium 50 MG Oral Tablet Hydrochloro 2013-0 Yes 1 tab, PO, [facility] thiazide 9-23 Daily, # l 12.5 MG / 03:00: 30 tab, 0 [place] Losartan 00 Refill(s) Potassium 50 MG Oral Tablet Hydrochloro 2013-0 Yes 1 tab, PO, [facility] thiazide 9-23 Daily, # l 12.5 MG / 03:00: 30 tab, 0 [place] Losartan 00 Refill(s) Potassium 50 MG Oral Tablet Hydrochloro 2013-0 Yes 1 tab, PO, [facility] thiazide 9-23 Daily, # l 12.5 MG / 03:00: 30 tab, 0 [place] Losartan 00 Refill(s) Potassium 50 MG Oral Tablet aspirin 2013-0 Yes 81 mg, PO, [facility] 9-22 Daily l 14:48: aspirin 2013-0 Yes 81 mg, PO, [facility] 9-22 Daily l 14:48: aspirin 2014-0 Yes 81 mg, PO, [facility] 9-22 Daily l 14:48: aspirin 2014-0 Yes 81 mg, PO, [facility] ag[facility] 9-22 [...] Mau agata 9-22 Daily l 14:48: aspirin Yes 81 mg, PO, [facility]au ag[facility] 9-22 Daily l 14:48: aripiprazol Yes 15 mg = 1 M emoria e 15 MG - tab, PO, l Oral Tablet 14:47: Daily Alice nn [Abilify] Clonidine Yes PO, [facility] 05-19 Bedtime l 14:47: aripiprazol Yes 15 mg = 1 M emoria e 15 MG - tab, PO, l Oral Tablet 14:47: Daily [facility] nn [Abilif] Clonidine 0 Yes PO, [facility] 05-19 Bedtime l 14:47: aripiprazol Yes 15 mg = 1 M emoria e 15 MG - tab, PO, l Oral Tablet 14:47: Daily [facility] nn [Abilify] Clonidine Yes PO, [facility] 05-19 Bedtime l 14:47: aripiprazol Yes 15 mg = 1 M emoria e 15 MG - tab, PO, l Oral Tablet 14:47: Daily [facility] nn [Abilify] Clonidine 0 Yes PO, [facility] 05-19 Bedtime l 14:47: aripiprazol Yes 15 mg = 1 M emoria e 15 MG - tab, PO, l Oral Tablet 14:47: Daily [place] nn [Abilify] Clonidine Yes PO, [facility] 05-19 Bedtime l 14:47: aripiprazol Yes 15 mg = 1 M emoria e 15 MG - tab, PO, l Oral Tablet 14:47: Daily [facility] nn [Abilify] Clonidine Yes PO, [facility] 05-19 Bedtime l 14:47: aripiprazol Yes 15 mg = 1 M emoria e 15 MG - tab, PO, l Oral Tablet 14:47: Daily [facility] nn [Abilify] Clonidine Yes PO, [facility] 05-19 Bedtime l 14:47: aripiprazol Yes 15 mg = 1 M emoria e 15 MG - tab, PO, l Oral Tablet 14:47: Daily [place] nn [Abilify] Clonidine Yes PO, [facility] 05-19 Bedtime l 14:47: aripiprazol Yes 15 mg = 1 M emoria e 15 MG - tab, PO, l Oral Tablet 14:47: Daily [facility] nn [Abilify] Clonidine Yes PO, [facility] 05-19 Bedtime l 14:47: aripiprazol Yes 15 mg = 1 M emoria e 15 MG - tab, PO, l Oral Tablet 14:47: Daily [place] nn [Abilify] Clonidine Yes PO, [facility] 05-19 Bedtime l 14:47: aripiprazol Yes 15 mg = 1 M emoria e 15 MG - tab, PO, l Oral Tablet 14:47: Daily [place] nn [Abilify] Clonidine Yes PO, [facility] 05-19 Bedtime l 14:47: aripiprazol Yes 15 mg = 1 M emoria e 15 MG -22 tab, PO, l Oral Tablet 14:47: Daily [place] [facility] [Abilify] 00 Clonidine 2013-0 Yes PO, [facility] -22 Bedtime l 14:47: aripiprazol 2013-0 Yes 15 mg = 1 M emoria e 15 MG - tab, PO, l Oral Tablet 14:47: Daily [facility] nn [Abilify] 00 Clonidine 2013-0 Yes PO, [facility] -22 Bedtime l 14:47: Ibuprofen 2013-0 Yes 800 mg, [facility] 9-22 PO, BID l 14:46: Ibuprofen 2013-0 Yes 800 mg, [facility] 9-22 PO, BID l 14:46: Ibuprofen 2013-0 Yes 800 mg, [facility] 9-22 PO, BID l 14:46: Ibuprofen 2013-0 Yes 800 mg, [facility] 9-22 PO, BID l 14:46: Ibuprofen 2013-0 Yes 800 mg, [facility] 9-22 PO, BID l 14:46: Ibuprofen 2013-0 Yes 800 mg, [facility] 9-22 PO, BID l 14:46: Ibuprofen 2013-0 Yes 800 mg, [facility] 9-22 PO, BID l 14:46: Ibuprofen 2013-0 Yes 800 mg, [facility] 9-22 PO, BID l 14:46: Ibuprofen 2013-0 Yes 800 mg, [facility] 9-22 PO, BID l 14:46: Ibuprofen 2013-0 Yes 800 mg, [facility] 9-22 PO, BID l 14:46: Ibuprofen 2013-0 Yes 800 mg, [facility] 9-22 PO, BID l 14:46: Ibuprofen 2013-0 Yes 800 mg, [facility] 9-22 PO, BID l 14:46: Ibuprofen 2013-0 Yes 800 mg, [facility] 9-22 PO, BID l 14:46: Miralax 2013-0 No Notes: [facility] 5-09 Dissolve l 14:00: in 8 oz of [place] 00 water or juice. (Same as: Miralax) Miralax 0 No Notes: [facility] 5-09 Dissolve l 14:00: in 8 oz of [place] 00 water or juice. (Same as: Miralax) Miralax No Notes: [facility] 5-09 Dissolve l 14:00: in 8 oz of [place] 00 water or juice. (Same as: Miralax) Miralax No Notes: [facility] 5-09 Dissolve l 14:00: in 8 oz of [place] 00 water or juice. (Same as: Miralax) Miralax No Notes: [facility] 5-09 Dissolve l 14:00: in 8 oz of [place] 00 water or juice. (Same as: Miralax) Miralax No Notes: [facility] 5-09 Dissolve l 14:00: in 8 oz of [place] 00 water or juice. (Same as: Miralax) Miralax No Notes: [facility] 5-09 Dissolve l 14:00: in 8 oz of [place] 00 water or juice. (Same as: Miralax) Miralax No Notes: [facility] 5-09 Dissolve l 14:00: in 8 oz of [place] 00 water or juice. (Same as: Miralax) Miralax No Notes: [facility] 5-09 Dissolve l 14:00: in 8 oz of [place] 00 water or juice. (Same as: Miralax) Miralax No Notes: [facility] 5-09 Dissolve l 14:00: in 8 oz of [place] 00 water or juice. (Same as: Miralax) Miralax No Notes: [facility] 5-09 Dissolve l 14:00: in 8 oz of [place] 00 water or juice. (Same as: Miralax) Miralax No Notes: [facility] 5-09 Dissolve l 14:00: in 8 oz of [place] 00 water or juice. (Same as: Miralax) Miralax No Notes: [facility] 5-09 Dissolve l 14:00: in 8 oz of [place] 00 water or juice. (Same as: Miralax) Dulcolax No Notes: [facility] Laxative 5-08 (Same As: l 15:24: Dulcolax, [place] 00 Bisco-Lax) Dulcolax No Notes: [facility] Laxative 5-08 (Same As: l 15:24: Dulcolax, [place] 00 Bisco-Lax) Dulcolax No Notes: [facility] Laxative 5-08 (Same As: l 15:24: Dulcolax, [place] 00 Bisco-Lax) Dulcolax No Notes: [facility] Laxative 5-08 (Same As: l 15:24: Dulcolax, [place] 00 Bisco-Lax) Dulcolax No Notes: [facility] Laxative 5-08 (Same As: l 15:24: Dulcolax, [place] 00 Bisco-Lax) Dulcolax No Notes: [facility] Laxative 5-08 (Same As: l 15:24: Dulcolax, [place] 00 Bisco-Lax) Dulcolax No Notes: [facility] Laxative 5-08 (Same As: l 15:24: Dulcolax, [place] 00 Bisco-Lax) Dulcolax No Notes: [facility] Laxative 5-08 (Same As: l 15:24: Dulcolax, [place] 00 Bisco-Lax) Dulcolax No Notes: [facility] Laxative 5-08 (Same As: l 15:24: Dulcolax, [place] 00 Bisco-Lax) Dulcolax No Notes: [facility] Laxative 5-08 (Same As: l 15:24: Dulcolax, [place] 00 Bisco-Lax) Dulcolax No Notes: [facility] Laxative 5-08 (Same As: l 15:24: Dulcolax, [place] 00 Bisco-Lax) Dulcolax No Notes: [facility] Laxative 5-08 (Same As: l 15:24: Dulcolax, [place] 00 Bisco-Lax) Dulcolax No Notes: [facility] Laxative 5-08 (Same As: l 15:24: Dulcolax, [place] 00 Bisco-Lax) Sertraline No Notes: [facility]or ia 5-07 (Same as: l 14:00: Zoloft) [place] 00 Methocarbam No Notes: [facility] ag[facility] ol 5-07 (Same l 14:00: as:Robaxin [place] 00 ) aripiprazol No Notes: [facility]au agata e 5-07 Non-Formul l 14:00: [facility]. [place] 00 (Same as: [facility]) Entocort EC No 9 mg, Memor [facility] 5-07 Route: PO, l 14:00: Drug form: [place] 00 ERCAP, Daily, Dosing Weight 71.818, kg, Start date: 01/01/14 9:00:00, Duration: 30 day, Stop date: 01/30/14 9:00:00 Budesonide No Notes: [facility] 5-07 (Same As: l 14:00: Entocort [place] 00 EC or Budesonide 3 mg EC / ERC) "Do Not Crush" Sertraline No Notes: [facility] 5-07 (Same as: l 14:00: Zoloft) [place] 00 Methocarbam No Notes: [facility] ag[facility] ol 5-07 (Same l 14:00: as:Robaxin ) aripiprazol No Notes: [facility] ag[facility] e 5-07 Non-Formul l 14:00: [facility]. [place] 00 (Same as: [facility]) Entocort EC No 9 mg, [facility] 5-07 Route: PO, l 14:00: Drug form: [place] 00 ERCAP, Daily, Dosing Weight 71.818, kg, Start date: 01/01/14 9:00:00, Duration: 30 day, Stop date: 01/30/14 9:00:00 Budesonide No Notes: [facility] 5-07 (Same As: l 14:00: Entocort [place] 00 EC or Budesonide 3 mg EC / ERC) "Do Not Crush" Sertraline No Notes: Memor ia 5-07 (Same as: l 14:00: Zoloft) [place] Methocarbam No Notes: [facility] ag[facility] ol 5-07 (Same l 14:00: as:Robaxin [place] ) aripiprazol No Notes: [facility]au agata e 5-07 Non-Formul l 14:00: [facility] [place] (Same as: ) Entocort EC No 9 mg, Memor ia 5-07 Route: PO, l 14:00: Drug form: [place] 00 ERCAP, Daily, Dosing Weight 71.818, kg, Start date: 01/01/14 9:00:00, Duration: 30 day, Stop date: 01/30/14 9:00:00 Budesonide No Notes: [facility]or [facility] 5-07 (Same As: l 14:00: Entocort [place] EC or Budesonide 3 mg EC / [...] 5-07 (Same As: l 14:00: Entocort [place] EC or Budesonide 3 mg EC / [...] ia 5-07 (Same As: l 14:00: Entocort [place] 00 EC or Budesonide 3 mg EC / ERC) "Do Not Crush" Sertraline No Notes: Memor ia 5-07 (Same as: l 14:00: Zoloft) [place] Methocarbam No Notes: [facility]au ag[facility] ol 5-07 (Same l 14:00: as:Robaxin [place] 00 ) aripiprazol No Notes: Mau agata e 5-07 Non-Formul l 14:00: [facility] [place] (Same as: [place]) Entocort EC No 9 mg, [facility] 5-07 Route: PO, l 14:00: Drug form: [place] 00 ERCAP, Daily, Dosing Weight 71.818, kg, Start date: 01/01/14 9:00:00, Duration: 30 day, Stop date: 01/30/14 9:00:00 Budesonide No Notes: [facility] ia 5-07 (Same As: l 14:00: Entocort [place] 00 EC or Budesonide 3 mg EC / ERC) "Do Not Crush" Sertraline No Notes: [facility] ia 5-07 (Same as: l 14:00: Zoloft) [place] Methocarbam No Notes: [facility]au ag[facility] ol 5-07 (Same l 14:00: as:Robaxin [place] 00 ) aripiprazol No Notes: [facility]au agata e 5-07 Non-Formul l 14:00: [facility]. [place] 00 (Same as: rita) Entocort EC No 9 mg, [facility] 5-07 Route: PO, l 14:00: Drug form: [place] 00 ERCAP, Daily, Dosing Weight 71.818, kg, Start date: 01/01/14 9:00:00, Duration: 30 day, Stop date: 01/30/14 9:00:00 Budesonide No Notes: [facility] 5-07 (Same As: l 14:00: Entocort [place] 00 EC or Budesonide 3 mg EC / ERC) "Do Not Crush" Sertraline No Notes: [facility] ia 5-07 (Same as: l 14:00: Zoloft) [place] 00 Methocarbam No Notes: [facility] [place] ol 5-07 (Same l 14:00: as:Robaxin [place] ) aripiprazol No Notes: [facility]au agata e 5-07 Non-Formul l 14:00: [facility] [place] (Same as: ) Entocort EC No 9 mg, Mem[facility] ia 5-07 Route: PO, l 14:00: Drug form: [place] 00 ERCAP, Daily, Dosing Weight 71.818, kg, Start date: 01/01/14 9:00:00, Duration: 30 day, Stop date: 01/30/14 9:00:00 Budesonide No Notes: [facility] 5-07 (Same As: l 14:00: Entocort [place] 00 EC or Budesonide 3 mg EC / ERC) "Do Not Crush" Sertraline No Notes: [facility] 5-07 (Same as: l 14:00: Zoloft) [place] 00 Methocarbam No Notes: [facility] ol 5-07 (Same l 14:00: as:Robaxin [place] ) aripiprazol No Notes: [facility]au ag[facility] e 5-07 Non-Formul l 14:00: [facility] [place] (Same as: ) Entocort EC No 9 mg, Mem[facility] ia 5-07 Route: PO, l 14:00: Drug form: [place] 00 ERCAP, Daily, Dosing Weight 71.818, kg, Start date: 01/01/14 9:00:00, Duration: 30 day, Stop date: 01/30/14 9:00:00 Budesonide No Notes: [facility] 5-07 (Same As: l 14:00: Entocort [place] 00 EC or Budesonide 3 mg EC / ERC) "Do Not Crush" Sertraline No Notes: [facility] 5-07 (Same as: l 14:00: Zoloft) [place] 00 Methocarbam No Notes: [facility] ol 5-07 (Same l 14:00: as:Robaxin [place] 00 ) aripiprazol No Notes: [facility] ag[facility] e 5-07 Non-Formul l 14:00: [facility] [place] (Same as: ) Entocort EC No 9 [...] ia 5-07 (Same as: l 14:00: Zoloft) [place] Methocarbam No Notes: [facility]au ag[facility] ol 5-07 (Same l 14:00: as:Robaxin ) aripiprazol No Notes: [facility] ag[facility] e 5-07 Non-Formul l 14:00: [facility]. [place] 00 (Same as: ) Entocort EC No 9 mg, [facility] 5-07 Route: PO, l 14:00: Drug form: [place] 00 ERCAP, Daily, Dosing Weight 71.818, kg, Start date: 01/01/14 9:00:00, Duration: 30 day, Stop date: 01/30/14 9:00:00 Budesonide No Notes: [facility] ia 5-07 (Same As: l 14:00: Entocort [place] 00 EC or Budesonide 3 mg EC / ERC) "Do Not Crush" Sertraline No Notes: [facility] ia 5-07 (Same as: l 14:00: Zoloft) [place] 00 Methocarbam No Notes: Mau agata ol [...] Memoria 5-07 Tablet l 12:30: should not [place] 00 be chewed or crushed. (Same as: Protonix) Protonix No Notes: [facility] 5-07 Tablet l 12:30: should not [place] 00 be chewed or crushed. (Same as: Protonix) Protonix No Notes: [facility] 5-07 Tablet l 12:30: should not [place] 00 be chewed or crushed. (Same as: Protonix) Protonix No Notes: [facility] 5-07 Tablet l 12:30: should not [place] 00 be chewed or crushed. (Same as: Protonix) Protonix No Notes: [facility] 5-07 Tablet l 12:30: should not [place] 00 be chewed or crushed. (Same as: Protonix) Protonix No Notes: [facility] 5-07 Tablet l 12:30: should not [place] 00 be chewed or crushed. (Same as: Protonix) Protonix No Notes: [facility] 5-07 Tablet l 12:30: should not [place] 00 be chewed or crushed. (Same as: Protonix) Protonix No Notes: [facility] 5-07 Tablet l 12:30: should not [place] 00 be chewed or crushed. (Same as: Protonix) Protonix No Notes: [facility] 5-07 Tablet l 12:30: should not [place] 00 be chewed or crushed. (Same as: Protonix) Protonix No Notes: [facility] 5-07 Tablet l 12:30: should not [place] 00 be chewed or crushed. (Same as: Protonix) Protonix No Notes: [facility] 5-07 Tablet l 12:30: should not [place] 00 be chewed or crushed. (Same as: Protonix) Dicyclomine No Notes: [facility] 5-07 (Same as: l 04:30: Bentyl) [place] 00 Dicyclomine No Notes: [facility] 5-07 (Same as: l 04:30: Bentyl) [place] 00 Dicyclomine No Notes: [facility] 5-07 (Same as: l 04:30: Bentyl) [place] Dicyclomine No Notes: [facility] ag[facility] 5-07 (Same as: l 04:30: Bentyl) [place] Dicyclomine No Notes: Mau agata 5-07 (Same as: l 04:30: Bentyl) [place] Dicyclomine No Notes: [facility]au ag[facility] 5-07 (Same as: l 04:30: Bentyl) [place] Dicyclomine No Notes: [facility]au ag[facility] 5-07 (Same as: l 04:30: Bentyl) [place] Dicyclomine No Notes: [facility] ag[facility] 5-07 (Same as: l 04:30: Bentyl) [place] Dicyclomine No Notes: [facility] ag[facility] 5-07 (Same as: l 04:30: Bentyl) [place] Dicyclomine No Notes: [facility] 5-07 (Same as: l 04:30: Bentyl) [place] Dicyclomine No Notes: [facility] 5-07 (Same as: l 04:30: Bentyl) [place] Dicyclomine No Notes: Mau agata 5-07 (Same as: l 04:30: Bentyl) [place] Dicyclomine No Notes: [facility]au ag[facility] 5-07 (Same as: l 04:30: Bentyl) [place] Trazodone No Notes: Memori a Hydrochlori 5-07 (Same As: l de 100 MG 02:00: Desyrel) [facility] booker Oral Tablet 00 Zocor No Notes: [facility] 5-07 (Same as: l 02:00: Zocor) [place] Ditropan XL No Notes: [facility]au agata 5-07 (Same as: l 02:00: Ditropan [place] 00 XL) "Do Not Crush" Pamelor No Notes: [facility] 5-07 (Same l 02:00: as:Pamelor [place] 00 , Aventyl) metoprolol No Notes: Memor ia tartrate 5-07 (Same as: l 02:00: Lopressor) [place] Trazodone No Notes: Memori a Hydrochlori 5-07 (Same As: l de 100 MG 02:00: Desyrel) [facility] book[facility] Oral Tablet 00 Zocor No Notes: [facility] 5-07 (Same as: l 02:00: Zocor) [place] Ditropan XL No Notes: [facility]au ag[place] 5-07 (Same as: l 02:00: Ditropan [place] 00 XL) "Do Not Crush" Pamelor No Notes: [facility] 5-07 (Same l 02:00: as:Pamelor [place] 00 , Aventyl) metoprolol No Notes: Memor ia tartrate 5-07 (Same as: l 02:00: Lopressor) [place] Trazodone No Notes: Memori a Hydrochlori 5-07 (Same As: l de 100 MG 02:00: Desyrel) [place] book[place] Oral Tablet Zocor No Notes: [facility] 5-07 (Same as: l 02:00: Zocor) [place] Ditropan XL No Notes: Mau agata 5-07 (Same as: l 02:00: Ditropan [place] XL) "Do Not Crush" Pamelor No Notes: [facility] 5-07 (Same l 02:00: as:Pamelor [place] 00 , Aventyl) metoprolol No Notes: Memor [...] Notes: [facility] 5-07 (Same l 02:00: as:Pamelor [place] 00 , Aventyl) metoprolol No Notes: Memor ia tartrate 5-07 (Same as: l 02:00: Lopressor) [place] Trazodone No Notes: [facility] a Hydrochlori 5-07 (Same As: l de 100 MG 02:00: Desyrel) [place] [facility] Oral Tablet 00 Zocor No Notes: [facility] 5-07 (Same as: l 02:00: Zocor) [place] Ditropan XL No Notes: [facility] ag[place] 5-07 (Same as: l 02:00: Ditropan [place] 00 XL) "Do Not Crush" [place] No Notes: [facility] 5-07 (Same l 02:00: as:[place] 00 , Aventyl) metoprolol No Notes: Memor ia tartrate 5-07 (Same as: l 02:00: Lopressor) [place] Trazodone No Notes: Memori a Hydrochlori 5-07 (Same As: l de 100 MG 02:00: Desyrel) Herm booker Oral Tablet 00 Zocor No Notes: Memoria 5-07 (Same as: l 02:00: Zocor) [place] Ditropan XL No Notes: Mau agata 5-07 (Same as: l 02:00: Ditropan [place] 00 XL) "Do Not Crush" [place] No Notes: Memoria 5-07 (Same l 02:00: as:[place] , Aventyl) metoprolol No Notes: Memor ia [...] tartrate 5-07 (Same as: l 02:00: Lopressor) [place] Trazodone No Notes: Memori a Hydrochlori 5-07 (Same As: l de 100 MG 02:00: Desyrel) Herm booker Oral Tablet 00 Zocor No Notes: Memoria 5-07 (Same as: l 02:00: Zocor) [place] Ditropan XL No Notes: Mau agata 5-07 (Same as: l 02:00: Ditropan [place] 00 XL) "Do Not Crush" [place] No Notes: Memoria 5-07 (Same l 02:00: as:[place] 00 , Aventyl) metoprolol No Notes: Memor ia tartrate 5-07 (Same as: l 02:00: Lopressor) [place] Trazodone No Notes: Memori a Hydrochlori 5-07 (Same As: l de 100 MG 02:00: Desyrel) Herm booker Oral Tablet 00 Zocor No Notes: Memoria 5-07 (Same as: l 02:00: Zocor) [place] Ditropan XL No Notes: Mau agata 5-07 (Same as: l 02:00: Ditropan [place] 00 XL) "Do Not Crush" [place] No Notes: Memoria 5-07 (Same l 02:00: as:[place] 00 , Aventyl) metoprolol No Notes: Memor ia tartrate 5-07 (Same as: l 02:00: Lopressor) [place] Trazodone No Notes: Memori a Hydrochlori 5-07 (Same As: l de 100 MG 02:00: Desyrel) Herm booker Oral Tablet 00 Zocor No Notes: Memoria 5-07 (Same as: l 02:00: Zocor) [place] Ditropan XL No Notes: Mau agata 5-07 (Same as: l 02:00: Ditropan [place] 00 XL) "Do Not Crush" [place] No Notes: Memoria 5-07 (Same l 02:00: as:[place] 00 , Aventyl) metoprolol No Notes: Memor ia tartrate 5-07 (Same as: l 02:00: Lopressor) [place] Trazodone No Notes: Memori a Hydrochlori 5-07 (Same As: l de 100 MG 02:00: Desyrel) Herm booker Oral Tablet 00 Zocor No Notes: Memoria 5-07 (Same as: l 02:00: Zocor) [place] Ditropan XL No Notes: Mau agata 5-07 (Same as: l 02:00: Ditropan [place] 00 XL) "Do Not Crush" [place] No Notes: Memoria 5-07 (Same l 02:00: as:[place] 00 , Aventyl) metoprolol No Notes: Memor ia tartrate 5-07 (Same as: l 02:00: Lopressor) [place] Trazodone No Notes: Memori a Hydrochlori 5-07 (Same As: l de 100 MG 02:00: Desyrel) Herm booker Oral Tablet 00 Zocor No Notes: Memoria 5-07 (Same as: l 02:00: Zocor) [place] Ditropan XL No Notes: Mau agata 5-07 (Same as: l 02:00: Ditropan [place] 00 XL) "Do Not Crush" [place] No Notes: Memoria 5-07 (Same l 02:00: as:[place] 00 , Aventyl) metoprolol No Notes: Memor ia tartrate 5-07 (Same as: l 02:00: Lopressor) [place] 00 Trazodone No Notes: Memori a Hydrochlori 5-07 (Same As: l de 100 MG 02:00: Desyrel) Herm booker Oral Tablet 00 Zocor No Notes: Memoria 5-07 (Same as: l 02:00: Zocor) [place] 00 Ditropan XL No Notes: Mau agata 5-07 (Same as: l 02:00: Ditropan [place] 00 XL) "Do Not Crush" Pamelor No Notes: Memoria 5-07 (Same l 02:00: as:Pamelor [place] 00 , Aventyl) metoprolol No Notes: Memor ia tartrate 5-07 (Same as: l 02:00: Lopressor) [place] 00 Pentasa No Notes: Memoria 5-06 (Same as: l 22:00: Pentasa) [place] Do not open capsule. "Do Not Crush" Pentasa No Notes: Memoria 5-06 (Same as: l 22:00: Pentasa) [place] Do not open capsule. "Do Not Crush" Pentasa No Notes: Memoria 5-06 (Same as: l 22:00: Pentasa) [place] Do not open capsule. "Do Not Crush" Pentasa No Notes: Memoria 5-06 (Same as: l 22:00: Pentasa) [place] Do not open capsule. "Do Not Crush" Pentasa No Notes: Memoria 5-06 (Same as: l 22:00: Pentasa) [place] 00 Do not open capsule. "Do Not Crush" Pentasa No Notes: Memoria 5-06 (Same as: l 22:00: Pentasa) [place] 00 Do not open capsule. "Do Not Crush" Pentasa No Notes: Memoria 5-06 (Same as: l 22:00: Pentasa) [place] 00 Do not open capsule. "Do Not Crush" Pentasa No Notes: Memoria 5-06 (Same as: l 22:00: Pentasa) [place] 00 Do not open capsule. "Do Not Crush" Pentasa No Notes: Memoria 5-06 (Same as: l 22:00: Pentasa) [place] 00 Do not open capsule. "Do Not Crush" Pentasa No Notes: Memoria 5-06 (Same as: l 22:00: Pentasa) [place] 00 Do not open capsule. "Do Not Crush" Pentasa 0 No Notes: Memoria 5-06 (Same as: l 22:00: Pentasa) [place] 00 Do not open capsule. "Do Not Crush" Pentasa 2013-0 No Notes: Memoria 5-06 (Same as: l 22:00: Pentasa) [place] 00 Do not open capsule. "Do Not Crush" Pentasa 0 No Notes: Memoria 5-06 (Same as: l 22:00: Pentasa) [place] 00 Do not open capsule. "Do Not Crush" Ketorolac 2013-0 No 4 days. Mau agata Tromethamin 5-06 l e 15 MG/ML 12:43: [place] Injectable 00 Solution Ketorolac 2013-0 No 4 days. Mau agata Tromethamin 5-06 l e 15 MG/ML 12:43: [place] Injectable 00 Solution Ketorolac 2013-0 No 4 days. Mau agata Tromethamin 5-06 l e 15 MG/ML 12:43: [place] Injectable 00 Solution Ketorolac 2013-0 No 4 days. Mau agata Tromethamin 5-06 l e 15 MG/ML 12:43: [place] Injectable 00 Solution Ketorolac 2013-0 No 4 days. Mau agata Tromethamin 5-06 l e 15 MG/ML 12:43: [place] Injectable 00 Solution Ketorolac 2013-0 No 4 days. Mau agata Tromethamin 5-06 l e 15 MG/ML 12:43: [place] Injectable 00 Solution Ketorolac 2013-0 No 4 days. Mau agata Tromethamin 5-06 l e 15 MG/ML 12:43: [place] Injectable 00 Solution Ketorolac 2013-0 No 4 days. Mau agata Tromethamin 5-06 l e 15 MG/ML 12:43: [place] Injectable 00 Solution Ketorolac 2013-0 No 4 days. Mau agata Tromethamin 5-06 l e 15 MG/ML 12:43: [place] Injectable 00 Solution Ketorolac 2013-0 No 4 days. Mau agata Tromethamin 5-06 l e 15 MG/ML 12:43: [place] Injectable 00 Solution Ketorolac 2013-0 No 4 days. Mau agata Tromethamin 5-06 l e 15 MG/ML 12:43: [place] Injectable 00 Solution Ketorolac 2013-0 No 4 days. Mau ag[place] Tromethamin 5-06 l e 15 MG/ML 12:43: [place] Injectable 00 Solution Ketorolac 2013-0 No 4 days. Mau agata Tromethamin 5-06 l e 15 MG/ML 12:43: [place] Injectable 00 Solution Nicotine No Notes: Memoria [...] Memoria 5-05 (Same as: l 22:00: Habitrol) [place] 00 "Remove old patch before applicatio n of new patch" Nicotine No Notes: Memoria 5-05 (Same as: l 22:00: Habitrol) [place] 00 "Remove old patch before applicatio n of new patch" Nicotine No Notes: Memoria 5-05 (Same as: l 22:00: Habitrol) [place] 00 "Remove old patch before applicatio n of new patch" Nicotine No Notes: Memoria 5-05 (Same as: l 22:00: Habitrol) [place] 00 "Remove old patch before applicatio n of new patch" Nicotine No Notes: Memoria 5-05 (Same as: l 22:00: Habitrol) [place] 00 "Remove old patch before applicatio n of new patch" Nicotine No Notes: Memoria 5-05 (Same as: l 22:00: Habitrol) [place] 00 "Remove old patch before applicatio n of new patch" Nicotine No Notes: Memoria 5-05 (Same as: l 22:00: Habitrol) [place] 00 "Remove old patch before applicatio n of new patch" Nicotine No Notes: Memoria 5-05 (Same as: l 22:00: Habitrol) [place] 00 "Remove old patch before applicatio n of new patch" Nicotine No Notes: Memoria 5-05 (Same as: l 22:00: Habitrol) [place] 00 "Remove old patch before applicatio n of new patch" Protonix No Notes: For Mem oria 5-05 IV push l 21:30: reconstitu [place] 00 te with 10 ml 0.9% sodium [...] oria 5-05 IV push l 21:30: reconstitu [place] 00 te with 10 ml 0.9% sodium chloride and push over 2 minutes. (Same as: Protonix) Protonix No Notes: For Mem oria 5-05 IV push l 21:30: reconstitu [place] 00 te with 10 ml 0.9% sodium chloride and push over 2 minutes. (Same as: Protonix) Protonix No Notes: For Mem oria 5-05 IV push l 21:30: reconstitu [place] 00 te with 10 ml 0.9% sodium chloride and push over 2 minutes. (Same as: Protonix) Protonix No Notes: For Mem oria 5-05 IV push l 21:30: reconstitu [place] 00 te with 10 ml 0.9% sodium chloride and push over 2 minutes. (Same as: Protonix) Protonix No Notes: For Mem oria 5-05 IV push l 21:30: reconstitu [place] 00 te with 10 ml 0.9% sodium [...] PO, l chloride 10 11:54: Bedtime, # [place] MG Extended 00 30 tab, 0 Release Refill(s) Tablet [Ditropan] Trazodone Yes 100 mg = 1 Me moria Hydrochlori 5-05 tab, PO, l de 100 MG 11:54: Bedtime, # He [place] Oral Tablet 00 90 tab, 0 Refill(s) Ranitidine Yes 300 mg = 1 M emoria 300 MG Oral 5-05 tab, PO, l Tablet 11:54: Daily, # [place] [Zantac] 00 30 tab, 0 Refill(s) Sodium Yes 0 Memoria Bicarbonate 5-05 Refill(s) l 11:54: [place] 00 methocarbam Yes 750 mg = 1 [...] PO, l 3 MG 11:54: Daily, # [place] Extended 00 90 cap, 0 Release Refill(s) [...] 4 cap, l Extended 11:54: BID, 0 [place] Release 00 Refill(s) Capsule [Pentasa] sertraline Yes 100 mg = 1 M emoria 100 mg oral 5-05 tab, PO, l tablet 11:54: Daily, # [place] 00 30 tab, 0 Refill(s) dicyclomine Yes [...] PO, l chloride 10 11:54: Bedtime, # [place] MG Extended 00 30 tab, 0 Release [...] PO, l chloride 10 11:54: Bedtime, # [place] MG Extended 00 30 tab, 0 Release [...] 0 Memoria Bicarbonate 5-05 Refill(s) l 11:54: [place] 00 methocarbam Yes 750 mg = 1 Memoria ol 750 mg 5-05 tab, PO, l oral tablet 11:54: Daily, # Nathan rmann 00 60 tab, 0 Refill(s) Omeprazole 2014-0 Yes 40 mg = 1 Me moria [...] tab, PO, l tablet 11:54: Daily, # [place] 00 30 tab, 0 Refill(s) dicyclomine Yes [...] cap, PO, l Oral 11:54: Bedtime, # [place] Capsule 00 90 cap, 0 [Pamelor] Refill(s) [...] PO, l 3 MG 11:54: Daily, # [place] Extended 00 90 cap, 0 Release Refill(s) [...] PO, l chloride 10 11:54: Bedtime, # [place] MG Extended 00 30 tab, 0 Release Refill(s) Tablet [Ditropan] Trazodone Yes 100 mg = 1 Me moria Hydrochlori 5-05 tab, PO, l de 100 MG 11:54: Bedtime, # [place] Oral Tablet 00 90 tab, 0 Refill(s) Ranitidine Yes 300 mg = 1 M emoria 300 MG Oral 5-05 tab, PO, l Tablet 11:54: Daily, # [place] [Zantac] 00 30 tab, 0 Refill(s) Sodium [...] PO, l 3 MG 11:54: Daily, # [place] Extended 00 90 cap, 0 Release Refill(s) [...] 4 cap, l Extended 11:54: BID, 0 [place] Release 00 Refill(s) Capsule [Pentasa] sertraline Yes 100 mg = 1 M emoria 100 mg oral 5-05 tab, PO, l tablet 11:54: Daily, # [place] 00 30 tab, 0 Refill(s) dicyclomine Yes [...] cap, PO, l Oral 11:54: Bedtime, # [place] Capsule 00 90 cap, 0 [Pamelor] Refill(s) [...] [Zantac] 00 30 tab, 0 Refill(s) Sodium 2014-0 Yes 0 Memoria Bicarbonate 5-05 Refill(s) l 11:54: [place] 00 methocarbam Yes 750 mg = 1 [...] 4 cap, l Extended 11:54: BID, 0 [place] Release 00 Refill(s) Capsule [Pentasa] sertraline Yes 100 mg = 1 M emoria 100 mg oral 5-05 tab, PO, l tablet 11:54: Daily, # [place] 00 30 tab, 0 Refill(s) dicyclomine Yes [...] tab, PO, l Tablet 11:54: Daily, # gNhia [Zantac] 00 30 tab, 0 Refill(s) Sodium Yes 0 Memoria Bicarbonate 5-05 Refill(s) l 11:54: [place] 00 methocarbam Yes 750 mg = 1 [...] PO, l 3 MG 11:54: Daily, # [place] Extended 00 90 cap, 0 Release Refill(s) [...] 4 cap, l Extended 11:54: BID, 0 [place] Release 00 Refill(s) Capsule [Pentasa] sertraline Yes [...] PO, l chloride 10 11:54: Bedtime, # [place] MG Extended 00 30 tab, 0 Release [...] 0 Memoria Bicarbonate 5-05 Refill(s) l 11:54: [place] 00 methocarbam Yes 750 mg = 1 [...] tab, PO, l tablet 11:54: Daily, # [place] 00 30 tab, 0 Refill(s) dicyclomine Yes [...] 4 cap, l Extended 11:54: BID, 0 [place] Release 00 Refill(s) Capsule [Pentasa] sertraline Yes [...] PO, l chloride 10 11:54: Bedtime, # [place] MG Extended 00 30 tab, 0 Release [...] 0 Memoria Bicarbonate 5-05 Refill(s) l 11:54: [place] 00 methocarbam Yes 750 mg = 1 [...] 4 cap, l Extended 11:54: BID, 0 [place] Release 00 Refill(s) Capsule [Pentasa] sertraline Yes 100 mg = 1 M emoria 100 mg oral 5-05 tab, PO, l tablet 11:54: Daily, # [place] 00 30 tab, 0 Refill(s) dicyclomine Yes [...] 0 Memoria Bicarbonate 5-05 Refill(s) l 11:54: [place] 00 methocarbam Yes 750 mg = 1 [...] tab, PO, l tablet 11:54: Daily, # [place] 00 30 tab, 0 Refill(s) dicyclomine Yes [...] PO, l chloride 10 11:54: Bedtime, # [place] MG Extended 00 30 tab, 0 Release Refill(s) Tablet [Ditropan] Trazodone Yes 100 mg = 1 Me mor[place] Hydrochlori 5-05 tab, PO, l de 100 MG 11:54: Bedtime, # [place] Oral Tablet 00 90 tab, 0 Refill(s) Ranitidine Yes 300 mg = 1 M emoria 300 MG Oral 5-05 tab, PO, l Tablet 11:54: Daily, # [place] [Zantac] 00 30 tab, 0 Refill(s) Sodium [...] Notes: Memoria 5-05 (Same l 09:01: as:MORPhin [place] 00 e Sulfate) Morphine No Notes: Memoria 5-05 (Same l 09:01: as:MORPhin [place] 00 e Sulfate) Morphine No Notes: Memoria 5-05 (Same l 09:01: as:MORPhin [place] 00 e Sulfate) Morphine No Notes: Memoria 5-05 (Same l 09:01: as:MORPhin [place] 00 e Sulfate) Morphine No Notes: Memoria 5-05 (Same l 09:01: as:MORPhin [place] 00 e Sulfate) Morphine No Notes: Memoria 5-05 (Same l 09:01: as:MORPhin [place] 00 e Sulfate) Morphine No Notes: Memoria 5-05 (Same l 09:01: as:MORPhin [place] 00 e Sulfate) Morphine No Notes: Memoria 5-05 (Same l 09:01: as:MORPhin [place] 00 e Sulfate) Morphine No Notes: Memoria 5-05 (Same l 09:01: as:MORPhin [place] 00 e Sulfate) Morphine No Notes: Memoria 5-05 (Same l 09:01: as:MORPhin [place] 00 e Sulfate) Morphine No Notes: Memoria 5-05 (Same l 09:01: as:MORPhin [place] 00 e Sulfate) Morphine No Notes: Memoria 5-05 (Same l 09:01: as:MORPhin [place] 00 e Sulfate) Morphine No Notes: Memoria 5-05 (Same l 09:01: as:MORPhin [place] 00 e Sulfate) Zofran No Notes: Memoria 5-05 (Same as: l 09:00: Zofran) [place] Lovenox No Notes: Memoria 5-05 (Same as: l 09:00: Lovenox) [place] Zofran No Notes: Memoria 5-05 (Same as: l 09:00: Zofran) [place] Lovenox No Notes: Memoria 5-05 (Same as: l 09:00: Lovenox) [place] Zofran No Notes: Memoria 5-05 (Same as: l 09:00: Zofran) [place] Lovenox No Notes: Memoria 5-05 (Same as: l 09:00: Lovenox) [place] Zofran No Notes: Memoria 5-05 (Same as: l 09:00: Zofran) [place] Lovenox No Notes: Memoria 5-05 (Same as: l 09:00: Lovenox) [place] Zofran No Notes: Memoria 5-05 (Same as: l 09:00: Zofran) [place] Lovenox No Notes: Memoria 5-05 (Same as: l 09:00: Lovenox) [place] Zofran No Notes: Memoria 5-05 (Same as: l 09:00: Zofran) [place] Lovenox No Notes: Memoria 5-05 (Same as: l 09:00: Lovenox) [place] Zofran No Notes: Memoria 5-05 (Same as: l 09:00: Zofran) [place] Lovenox No Notes: Memoria 5-05 (Same as: [...] Immunizations Ordered Filled Immunization Date Status Comments [facility] e Immunization Name Name SARS-COV-2 COVID-19 2021-05-15 Completed Unive rsity of MODERNA VACCINE 00:00:00 [place] [facility] SARS-COV-2 COVID-19 2021-05-15 Completed Unive rsity of MODERNA VACCINE 00:00:00 [place] [facility] SARS-COV-2 COVID-19 2021-05-15 Completed Unive rsity of MODERNA VACCINE 00:00:00 [place] [facility] SARS-COV-2 COVID-19 2021-05-15 Completed Unive rsity of MODERNA 12+ YRS 00:00:00 [place] [facility] SARS-COV-2 COVID-19 2021-05-15 Completed Unive rsity of MODERNA 12+ YRS 00:00:00 [place] [facility] SARS-COV-2 COVID-19 2021-05-15 Completed Unive rsity of MODERNA 12+ YRS 00:00:00 [place] [facility] SARS-COV-2 COVID-19 2021-05-15 Completed Unive rsity of MODERNA 12+ YRS 00:00:00 [place] [facility] SARS-COV-2 COVID-19 2021-04-17 Completed Unive rsity of MODERNA VACCINE 00:00:00 [place] [facility] SARS-COV-2 COVID-19 2021-04-17 Completed Unive rsity of MODERNA VACCINE 00:00:00 [place] [facility] SARS-COV-2 COVID-19 2021-04-17 Completed Unive rsity of MODERNA VACCINE 00:00:00 [facility] ical Branch SARS-COV-2 COVID-19 2021-04-17 Completed Unive rsity of MODERNA 12+ YRS 00:00:00 [facility] ical VACCINE Branch SARS-COV-2 COVID-19 2021-04-17 Completed Unive rsity of MODERNA 12+ YRS 00:00:00 [facility] ical VACCINE Branch SARS-COV-2 COVID-19 2021-04-17 Completed Unive rsity of MODERNA 12+ YRS 00:00:00 [facility] ical VACCINE Branch SARS-COV-2 COVID-19 2021-04-17 Completed Unive rsity of MODERNA 12+ YRS 00:00:00 [facility] ical VACCINE Branch Tdap 2018-04-13 Completed [facility] 00[facility]00 [facility] 2018-04-13 Completed [facility] 00:[facility]:00 [facility] 2018-04-13 Completed [facility] 00:00:00 [facility] 2018-04-13 Completed [facility] 00:00:00 [facility] 2018-04-13 Completed [facility] 00:00:00 [facility] 2018-04-13 Completed [facility] 00:[facility]:00 [facility] 2018-04-13 Completed [facility] 2018-04-13 Completed [facility] 00:[facility]00 [facility] 2018-04-13 Completed [facility] 00:00[facility]00 [facility] 2018-04-13 Completed [facility] 00:00[facility]00 [facility] TDAP 2018-04-13 Completed [facility] 00:00[facility]00 [facility] TDAP 2018-04-13 Completed [facility] 00:[facility]00 [facility] Vital Signs Vital Name Observation Time Observation Value Comments Source WEIGHT 2023-01-10 13:58:00 60.51 kg WEIGHT 2023-01-10 13:58:00 60.51 kg Systolic blood 2022-12-06 18:27:00 120 mm[Hg] Univer sity of pressure [facility] Diastolic blood 2022-12-06 18:27:00 75 mm[Hg] Unive rsity of pressure [facility] Heart rate 2022-12-06 18:27:00 54 /min [facility] Respiratory rate 2022-12-06 18:27:00 16 /min [facility] Body height 2022-12-06 18:27:00 154.[address] [facility] Body weight 2022-12-06 18:27:[address] [facility] BMI 2022-12-06 18:27:00 24.49 kg/m2 [facility] Oxygen saturation in 2022-12-06 18:27:00 93 /min [facility] Arterial blood by [facility] Pulse oximetry Branch HEIGHT 2022-09-13 11:50:00 153.7 cm WEIGHT 2022-09-13 11:50:00 58.741 kg HEIGHT 2022-09-13 11:50:00 153.7 cm WEIGHT 2022-09-13 11:50:00 58.741 kg WEIGHT 2022-06-21 14:37:00 58.65 kg HEIGHT 2022-06-21 14:37:00 154.9 cm WEIGHT 2022-06-21 14:37:00 58.65 kg HEIGHT 2022-06-21 14:37:00 154.9 cm WEIGHT 2022-05-14 23:07:00 58.242 kg HEIGHT 2022-05-14 16:11:00 154.9 cm WEIGHT 2022-05-14 16:11:00 61.236 kg WEIGHT 2022-05-14 23:07:00 58.242 kg HEIGHT 2022-05-14 16:11:00 154.9 cm WEIGHT 2022-05-14 16:11:00 61.236 kg Systolic blood 2021-11-30 15:18:00 160 mm[Hg] Univer sity of pressure [facility] Diastolic blood 2021-11-30 15:18:00 82 mm[Hg] Unive rsity of [facility] Heart rate 2021-11-30 14:45:00 59 /min [facility] Body temperature 2021-11-30 14:45:00 36.[address] [facility] Respiratory rate 2021-11-30 14:45:00 18 /min Univ ersity of [facility] Body height 2021-11-30 14:45:00 154.9 cm [facility] Body weight 2021-11-30 14:45:00 58.832 [facility] BMI 2021-11-30 14:45:00 24.51 kg/m2 [facility] Heart rate 2022-09-13 11:50:00 60 /min [facility] Body temperature 2022-09-13 11:50:00 36.22 Carla [facility] Respiratory rate 2022-09-13 11:50:00 16 /min [facility] Body height 2022-09-13 11:50:00 153.7 cm actual [facility] Body weight 2022-09-13 11:50:00 58.741 kg [facility] BMI 2022-09-13 11:50:00 24.87 kg/m2 [facility] Oxygen saturation in 2022-09-13 11:50:00 96 /min [facility] Arterial blood by Medical Ce [facility]ter Pulse oximetry Systolic blood 2022-06-21 14:37:00 154 mm[Hg] [facility] Diastolic blood 2022-06-21 14:37:00 85 mm[Hg] [facility] Heart rate 2022-06-21 14:37:00 86 /min [facility] Body temperature 2022-06-21 14:37:00 36.28 Carla [facility] Respiratory rate 2022-06-21 14:37:00 18 /min [facility] Body height 2022-06-21 14:37:00 154.9 cm [facility] Body weight 2022-06-21 14:37:00 58.65 kg [facility] BMI 2022-06-21 14:37:00 24.43 kg/m2 [facility] Oxygen saturation in 2022-06-21 14:37:00 95 /min [facility] Arterial blood by Medical Ce [facility] Pulse oximetry Weight 2014-05-16 14:54:00 [facility] Calculated 2014-05-16 14:54:00 [facility] [place] Height 2014-05-16 14:54:00 160.02 cm [facility] [place] Respitory Rate 2014-01-02 20:58:00 Memori al [place] Heart Rate 2014-01-02 20:58:00 [facility] [place] Temperature Oral (F) 2014-01-02 20:58:00 98.4 F [facility] [place] Diastolic (mm Hg) 2014-01-02 20:58:00 Mem orial [place] Systolic (mm Hg) 2014-01-02 20:58:00 Mau rial [place] Temperature Oral (F) 2014-01-02 16:23:00 98.2 F [facility] [place] Heart Rate 2014-01-02 16:23:00 [facility] [place] Respitory Rate 2014-01-02 16:23:00 Memori al [place] Systolic (mm Hg) 2014-01-02 16:23:00 Mau rial [place] Diastolic (mm Hg) 2014-01-02 16:23:00 Mem orial [place] Diastolic (mm Hg) 2014-01-02 12:20:00 Mem orial [place] Systolic (mm Hg) 2014-01-02 12:20:00 Mau rial [place] Respitory Rate 2014-01-02 12:20:00 Memori al [place] Temperature Oral (F) 2014-01-02 12:20:00 98.5 F [...] [place] BMI Calculated 2013-12-30 08:40:00 Memori al [place] Height 2013-12-30 08:40:00 162.56 cm [facility] [place] Procedures Procedure Date / Time Performing Clinician Source Performed ASSIGNMENT OF BENEFITS 2022-12-06 18:06:09 Doctor Unassigned, No [facility] CBC W/PLT COUNT & AUTO 2022-09-13 11:59:00 Jae Poole [facility] DIFFERENTIAL Center COMPREHENSIVE METABOLIC 2022-09-13 11:59:00 [facility] PANEL Center CBC W/PLT COUNT & AUTO 2022-09-13 11:59:00 [facility] Center CT HEART-CORONARY 2022-07-18 15:37:00 [facility] ARTERIES CALCIUM SCORE Center SCREENING WITHOUT IV CONTRAST 2D ECHO W/ DOPPLER 2022-07-18 13:04:08 [facility] (CW/PW/COLOR) Center ECG 12-LEAD 2022-06-21 14:31:02 [facility] ECG 12-LEAD 2022-06-21 14:31:02 Unknown, Hl7 [facility] CBC W/PLT COUNT & AUTO 2022-06-21 14:30:00 [facility] DIFFERENTIAL Center COMPREHENSIVE METABOLIC 2022-06-21 14:30:00 [facility] PANEL Center CBC W/PLT COUNT & AUTO 2022-06-21 14:30:00 [facility] DIFFERENTIAL Center NM MYOCARDIAL PERFUSION 2022-05-16 16:14:00 [facility] SPECT, PHARM Center APTT 2022-05-16 15:02:00 Claudia Umanzor [facility] TREADMILL 2022-05-16 13:51:06 Unknown, Hl7 [facility] TOLERANCE(NON-NUCLEAR Center TREADMILL) ECG 12-LEAD 2022-05-16 13:28:19 Unknown, Hl7 [facility] ECG 12-LEAD 2022-05-16 13:28:19 Unknown, Hl7 [facility] ECG 12-LEAD 2022-05-16 13:27:51 Unknown, Hl7 [facility] ECG 12-LEAD 2022-05-16 13:27:51 Unknown, 7 [facility] APTT 2022-05-16 03:57:00 Noé, [facility] CBC (HEMOGRAM ONLY) 2022-05-16 03:57:00 SathyaLeanne Wetzel [facility] BASIC METABOLIC PANEL 2022-05-16 03:57:00 Leanne Mcdonnellon [facility] MAGNESIUM 2022-05-16 03:57:00 Leanne Mcdonnellon [facility] APTT 2022-05-15 16:09:00 Noé, [facility] CBC (HEMOGRAM ONLY) 2022-05-15 05:43:00 Noé, [facility] APTT 2022-05-15 05:43:00 Noé, [facility] ECG 12-LEAD 2022-05-15 [facility] 2022-05-15 01:50:44 Unknown, Hl7 Doctor [facility] HIGH SENSITIVITY 2022-05-15 01:30:[facility] Center ECG 12-LEAD 2022-05-14 23:03:01 [facility] 12-LEAD 2022-05-14 23:03:01 Unknown, Hl7 [facility] PLATELET COUNT 2022-05-14 22:47:00 Noé, [facility] APTT 2022-05-14 22:47[facility] 2022-05-14 22:47:00 [facility] HIGH SENSITIVITY 2022-05-14 22:47:00 [facility] TROPONIN I Center SARS-COV2/RT-PCR ([facility] & 2022-05-14 21:18:00 [facility] REF LABS) Center HIGH SENSITIVITY 2022-05-14 18:33:00 Andrew Hernandez [facility] TROPONIN I [facility] ECG 12-LEAD 2022-05-14 18:29:48 Andrew Hernandez [facility] ECG 12-LEAD 2022-05-14 18:29:48 Unknown, Hl7 Doctor [facility] CBC W/PLT COUNT & AUTO 2022-05-14 16:55:00 Andrew Hernandez [facility] DIFFERENTIAL [facility] CBC W/PLT COUNT & AUTO 2022-05-14 16:55:00 Andrew Hernandez [facility] DIFFERENTIAL [facility] COMPREHENSIVE METABOLIC 2022-05-14 16:55:00 Andrew Hernandez [facility] PANEL [facility] HIGH SENSITIVITY 2022-05-14 16:55:00 Andrew Hernandez [facility] TROPONIN I [facility] XR CHEST 2 VIEWS 2022-05-14 16:30:00 Andrew Hernandez [facility] ECG 12-LEAD 2022-05-14 16:13:36 Unknown, Hl7 Doctor [facility] ECG 12-LEAD 2022-05-14 16:13:36 Claudia Umanzor [facility] EKG-SCANNED 2022-05-14 00:00:00 Provider, Default [facility] Abdominal aorta [facility] angiogram Abdominal hysterectomy [facility] Angiography of renal [facility] arteries, bilateral Appendectomy [facility] Superior mesenteric [facility] angiography Suspension of bladder [facility] Tonsillectomy [facility] Bladder augmentation [facility] Plan of Care Planned Activity Planned Date Details Comments Source Future Scheduled 2028-04-13 DTAP/TDAP/TD VACCINES ([address] [facility] - Td or Tdap) [[facility] DTAP/TDAP/TD VACCINES (2 - Td or Tdap)] Future Scheduled 2028-04-13 DTAP/TDAP/TD VACCINES ([address] [facility] 00:00:00 - Td or Tdap) [[facility] DTAP/TDAP/TD VACCINES (2 - Td or [...] [facility] 00:[facility]00 [code = 27609277] Medical Ce nter Future Scheduled 2025-05-14 Lipid panel (procedure) [facility] 00:00:00 [code = 76403117] Medical Ce nter Future Scheduled 2025-05-14 Lipid panel (procedure) [facility] 00:00:00 [code = 17973242] Medical Ce nter Future Scheduled 2025-05-14 Lipid panel (procedure) [facility] 00:00:00 [code = 54990306] Medical Ce nter Future Scheduled 2025-05-14 Lipid panel (procedure) [facility] 00:00:00 [code = 83824694] Medical Ce nter Future Scheduled 2025-05-14 Lipid panel (procedure) [facility] 00:00:00 [code = 80096685] Medical Ce nter Future Scheduled 2023-05-28 [facility] Influenza [facility]al [facility] (>/= 19 yrs) [code = IMM Influenza Seasonal (>/= 19 yrs)] Future Scheduled 2023-04-28 INFLUENZA VACCINE (Season [facility] 00:00:00 Ended) [code = INFLUENZA Med ical Center VACCINE (Season Ended)] Future Scheduled 2023-01-17 COVID-19 [facility]ACC[facility] (#[facility]) [facility] 07:[facility]38 [code = COVID-19 VACCINE Hos pital (#1)] Future Scheduled 2023-01-17 Pneumococcal Vaccine: [facility] 07:58:38 Pediatrics (0 to 5 Years) Ho spital and At-Risk Patients (6 to 64 Years) (1 - PCV) [code = Pneumococcal Vaccine: Pediatrics (0 to 5 Years) and At-Risk Patients (6 to 64 Years) (1 - PCV)] Future Scheduled 2023-01-17 Hepatitis C screening [facility] 07:58:38 (procedure) [code = Hospital [id number]] Future Scheduled 2023-01-17 [facility] 07[facility] of cervix Hospital (procedure) [code = 527177644] Future Scheduled 2023-01-17 [facility]ING [facility] 07:58:38 [code = COLONOSCOPY Hospital SCREENING] Future Scheduled 2023-01-17 SHINGLES VACCINES (1 of [facility] 07:58:38 2) [code = SHINGLES Hospital VACCINES (1 of 2)] Future Scheduled 2023-01-17 BREAST CANCER SCREENING [facility] 07:58:38 [code = BREAST CANCER Hospit al SCREENING] Future Scheduled 2023-01-17 INFLUENZA VACCINE [code = [facility] 07:58:38 INFLUENZA VACCINE] Hospital Future Scheduled 2022-09-06 Screening for malignant [facility] Test 07:49:10 neoplasm of colon Medicine (procedure) [code = 361905102] Future Scheduled 2022-09-06 Screening for malignant [facility] Test 07:49:10 neoplasm of breast Medicine (procedure) [code = 176769183] Future Scheduled 2022-09-06 Pneumococcal Combined (1 [place] [facility] Test 07:49:10 - PCV) [code = Medicine Pneumococcal Combined (1 - PCV)] Future Scheduled 2022-09-06 Human immunodeficiency B [facility] Test 07:49:10 virus screening Medicine (procedure) [code = 762820561] Future Scheduled 2022-09-06 Hepatitis C screening [facility] Test 07:49:10 (procedure) [code = Medicine 730875270] Future Scheduled 2022-09-06 Screening for malignant [facility] Test 07:49:10 neoplasm of cervix Medicine (procedure) [code = 210718238] Future Scheduled 2022-09-06 ZOSTER VACCINE (1 of 2) [facility] Test 07:49:10 [code = ZOSTER VACCINE (1 Me dicine of 2)] Future Scheduled 2022-09-06 COVID-19 Vaccine (3 - Ba [facility] Test 07:49:10 Booster for Moderna Medicine series) [code = COVID-19 Vaccine (3 - Booster for Moderna series)] Future Scheduled 2022-09-06 FLU VACCINE > 6 MONTHS B [facility] Test 07:49:10 [code = FLU VACCINE > 6 Medi cine MONTHS] Future Scheduled 2022-09-06 Medicare IPPE (Welcome to [facility] 07:49:10 Medicare) [code = Medicine Medicare IPPE (Welcome to Medicare)] Future Scheduled 2022-09-06 TETANUS SHOT (ADULT) [facility] Test 07:49:10 [code = TETANUS SHOT Medicin [...] 00:00:00 (YEAR 2 or FIRST YEAR if [facility] no IPPE) [code = MEDICARE ANNUAL WELLNESS (YEAR 2 or FIRST YEAR if no IPPE)] Future Scheduled 2022-08-17 [facility] for [facility] 18:22:05 neoplasm of cervix Hospital (procedure) [code = 948139486] Future Scheduled 2022-08-17 [facility]CREENING [facility] 18:22:05 [code = COLONOSCOPY Hospital SCREENING] Future Scheduled 2022-08-17 SHINGLES VACCINES (1 of [facility] 18:22:05 2) [code = SHINGLES Hospital VACCINES (1 of 2)] Future Scheduled 2022-08-17 BREAST CANCER SCREENING [facility] 18:22:05 [code = BREAST CANCER Hospit al SCREENING] Future Scheduled 2022-08-17 INFLUENZA VACCINE [code = [facility] 18:22:05 INFLUENZA VACCINE] Hospital Future Scheduled 2022-08-17 COVID-19 VACCINE (#1) [facility] 18:22:05 [code = COVID-19 VACCINE Hos pital (#1)] Future Scheduled 2022-08-17 Scre[facility] for malignant [facility] 18:22:05 neoplasm of cervix Hospital (procedure) [code = 178259568] Future Scheduled 2022-08-17 [facility]CREENING [facility] 18:22:05 [code = COLONOSCOPY Hospital SCREENING] Future Scheduled 2022-08-17 SHINGLES VACCINES (1 of [facility] 18:22:05 2) [code = SHINGLES Hospital VACCINES (1 of 2)] Future Scheduled 2022-08-17 BREAST CANCER SCREENING [facility] 18:22:05 [code = BREAST CANCER Hospit al SCREENING] Future Scheduled 2022-08-17 INFLUENZA VACCINE [code = [facility] 18:22:05 INFLUENZA VACCINE] Hospital Future Scheduled 2022-08-17 COVID-19 VACCINE (#1) [facility] 18:22:05 [code = COVID-19 VACCINE Hos pital (#1)] Future Scheduled 2022-08-17 [facility] 18:22:05 neoplasm of cervix Hospital (procedure) [code = 104505277] Future Scheduled 2022-08-17 [facility]CREENING [facility] 18:22:05 [code = COLONOSCOPY Hospital SCREENING] Future Scheduled 2022-08-17 SHINGLES VACCINES (1 of [facility] 18:22:05 2) [code = SHINGLES Hospital VACCINES (1 of 2)] Future Scheduled 2022-08-17 BREAST CANCER SCREENING [facility] 18:22:05 [code = BREAST CANCER Hospit al SCREENING] Future Scheduled 2022-08-17 INFLUENZA VACCINE [code = [facility] 18:22:05 INFLUENZA VACCINE] Hospital Future Scheduled 2022-08-17 COVID-19 [facility]ACCINE (#1) [facility] 18:22:05 [code = COVID-19 VACCINE Hos pital (#1)] Future Scheduled 2022-05-28 IMM Influenza Seasonal H [...] Future Scheduled 2022-04-26 HEPATITIS B VACCINES (1 [facility] 16:18:33 of 3 - 3-dose series) Hospit al [code = HEPATITIS B VACCINES (1 of 3 - 3-dose series)] Future Scheduled 2022-04-26 COVID-19 VACCINE (#1) [facility] 16:18:33 [code = COVID-19 VACCINE Hos pital (#1)] Future Scheduled 2022-04-26 [facility] 16:18:33 neoplasm of cervix Hospital (procedure) [code = 628838488] Future Scheduled 2022-04-26 [facility]CREENING [facility] 16:18:33 [code = COLONOSCOPY Hospital SCREENING] Future Scheduled 2022-04-26 SHINGLES VACCINES (1 of [facility] 16:18:33 2) [code = SHINGLES Hospital VACCINES (1 of 2)] Future Scheduled 2022-04-26 BREAST CANCER SCREENING [facility] 16:18:33 [code = BREAST CANCER Hospit al SCREENING] Future Scheduled 2022-04-26 INFLUENZA VACCINE [code = [facility] 16:18:33 INFLUENZA VACCINE] Hospital Future Scheduled 2021-11-03 COVID-19 VACCINE (1) [facility] 06:47:29 [code = COVID-19 VACCINE Hos pital (1)] Future Scheduled 2021-11-03 Scre[facility] for malignant [facility] 06:47:29 neoplasm of cervix Hospital (procedure) [code = 700373164] Future Scheduled 2021-11-03 [facility]COPY [facility]CREENING [facility] 06:47:29 [code = COLONOSCOPY Hospital SCREENING] Future Scheduled 2021-11-03 SHINGLES VACCINES (#1) [facility] 06:47:29 [code = SHINGLES VACCINES Ho spital (#1)] Future Scheduled 2021-11-03 BREAST CANCER SCREENING [facility] 06:47:29 [code = BREAST CANCER Hospit al SCREENING] Future Scheduled 2021-11-03 INFLUENZA VACCINE [code = [facility] 06:47:29 INFLUENZA VACCINE] Hospital Future Scheduled 2021-10-15 COVID-19 VACCINE (3 - [...] - Booster for Moderna series)] Future Scheduled 2021-07-10 COVID-19 VACCINE (3 - [facility] Booster for Moderna Medical Center series) [code = COVID-19 VACCINE (3 - Booster for Moderna series)] Future Scheduled 2021-07-10 COVID-19 VACCINE (3 - [facility] 00[facility] Booster for Moderna Medical Center series) [code = COVID-19 VACCINE (3 - Booster for Moderna series)] Future Scheduled 2021-07-10 COVID-19 VACCINE (3 - [facility] [...] 00:00:00 neoplasm of colon (procedure) [code = 241755362] Future Scheduled 2013 Screening for malignant [facility] Test 00:00:00 neoplasm of colon (procedure) [code = 769465433] Future Scheduled 2013 Screening for malignant [facility] Test 00:00:00 neoplasm of colon (procedure) [code = 371447053] Future Scheduled 2013 Screening for malignant [facility] Test 00:00:00 neoplasm of colon (procedure) [code = 835564109] Future Scheduled 2013 Screening for malignant [facility] Test 00:00:00 neoplasm of colon (procedure) [code = 958223074] Future Scheduled 2013 Screening for malignant [facility] Test 00:00:00 neoplasm of colon (procedure) [code = 165811975] Future Scheduled 2013 Screening for malignant [facility] 00:00:00 neoplasm of colon (procedure) [code = 096830795] Future Scheduled 2013 Screening for malignant [facility] Test 00:00:00 neoplasm of colon (procedure) [code = 568701489] Future Scheduled 2013 SHINGLES VACCINES ([address] [facility] 00:00:00 2) [code = SHINGLES Medical Center VACCINES (1 of 2)] Future Scheduled 2013 SHINGLES VACCINES ([address] [facility] 00:00:00 2) [code = SHINGLES Medical Center VACCINES (1 of 2)] Future Scheduled 2013 SHINGLES VACCINES ([address] [facility] 00:00:00 2) [code = SHINGLES Medical Center VACCINES (1 of 2)] Future Scheduled 2013 SHINGLES VACCINES ([address] [facility] 00:00:00 2) [code = SHINGLES Medical Center VACCINES (1 of 2)] Future Scheduled 2013 SHINGLES VACCINES ([address] [facility] 00:00:00 2) [code = SHINGLES Medical Center VACCINES (1 of 2)] Future Scheduled 2013 SHINGLES VACCINES ([address] [facility] 00:00:00 2) [code = SHINGLES Medical Center VACCINES (1 of 2)] Future Scheduled 2003 Breast Cancer Scrn [facility] [...] 00:00:00 neoplasm of cervix (procedure) [code = 242848112] Future Scheduled 1993 Screening for malignant [facility] 00:00:00 neoplasm of cervix (procedure) [code = 356516943] Future Scheduled 1993 Screening for malignant [facility] Test 00:00:00 neoplasm of cervix (procedure) [code = 040748238] Future Scheduled 1993 Screening for malignant [facility] 00:00:00 neoplasm of cervix (procedure) [code = 793850125] Future Scheduled 1993 Screening for malignant [facility] 00:00:00 neoplasm of cervix (procedure) [code = 035273943] Future Scheduled 1993 Screening for malignant [facility] 00:00:00 neoplasm of cervix (procedure) [code = 885766277] Future Scheduled 1993 Screening for malignant [facility] 00:00:00 neoplasm of cervix (procedure) [code = 052120471] Future Scheduled 1993 Screening for malignant [facility] 00:00:00 neoplasm of cervix (procedure) [code = 465232587] Future Scheduled 1993 Screening for malignant [facility] Test 00:00:00 neoplasm of cervix (procedure) [code = 299292288] Future Scheduled 1993 Screening for malignant [facility] Test 00:00:00 neoplasm of cervix (procedure) [code = 717367701] Future Scheduled 1993 Screening for malignant [facility] Test 00:00:00 neoplasm of cervix (procedure) [code = 885463021] Future Scheduled 1993 Screening for malignant [facility] Test 00:00:00 neoplasm of cervix (procedure) [code = 913138911] Future Scheduled 1993 Screening for malignant [facility] 00:00:00 neoplasm of cervix (procedure) [code = 293575890] Future Scheduled 1993 Screening for malignant [facility] Test 00:00:00 neoplasm of cervix (procedure) [code = 466341484] Future Scheduled 1993 Screening for malignant [facility] Test 00:00:00 neoplasm of cervix (procedure) [code = 527040053] Future Scheduled 1993 Screening for malignant [facility] 00:00:00 neoplasm of cervix (procedure) [code = 695057390] Future Scheduled 1984-02-27 Screening for malignant [facility] 00:00:00 neoplasm of cervix Medical C enter (procedure) [code = 227516083] Future Scheduled 1984-02-27 Screening for malignant [facility] 00:00:00 neoplasm of cervix Medical C enter (procedure) [code = 022688021] Future Scheduled 1984-02-27 Screening for malignant [facility] 00:00:00 neoplasm of cervix Medical C enter (procedure) [code = 413598259] Future Scheduled 1984-02-27 Screening for malignant [facility] 00:00:00 neoplasm of cervix Medical C enter (procedure) [code = 640476429] Future Scheduled 1984-02-27 Screening for malignant [facility] 00:00:00 neoplasm of cervix Medical C enter (procedure) [code = 141410046] Future Scheduled 1984-02-27 Screening for malignant [facility] 00:00:00 neoplasm of cervix Medical C enter (procedure) [code = 510125775] Future Scheduled 1981 HEPATITIS C SCREENING CH [...] SCREENING] Future Scheduled 1975 COVID-19 Vaccine (1) [facility] Test 00:00:00 [code = COVID-19 [...] YRS (1 - PCV) [code = Medica Center PNEUMOCOCCAL VACCINE 0-64 YRS (1 - [...] (1)] Future Scheduled 1963 COVID-19 Vaccine (#1) [facility] 00:00:00 [code = COVID-19 Vaccine (#1)] Future Scheduled 1963 COVID-19 Vaccine (#1) [facility] 00:00:00 [code = COVID-19 Vaccine (#1)] Future Scheduled 1963 COVID-19 Vaccine (#1) [facility] 00:00:00 [code = COVID-19 Vaccine (#1)] Future Scheduled 1963 COVID-19 Vaccine (#1) [facility] 00:00:00 [code = COVID-19 Vaccine (#1)] Future Scheduled 1963 COVID-19 Vaccine (#1) [facility] 00:00:00 [code = COVID-19 Vaccine (#1)] Future Scheduled 1963 Screening for malignant [facility] 00:00:00 neoplasm of colon Medical Ce nter (procedure) [code = 882267815] Future Scheduled 1963 Sigmoidoscopy [facility]code [facility]oscopy] Medical Cente r Future Scheduled 1963 Screening for malignant [facility] 00:00:00 neoplasm of breast Medical C enter (procedure) [code = 671280073] Future Scheduled 1963 CT Colonography (combo) [facility] 00:00:00 [code = CT Colonography Medi yesy Center (combo)] Future Scheduled 1963 Screening for malignant [facility] 00:00:00 neoplasm of colon Medical Ce nter (procedure) [code = 256287639] Future Scheduled 1963 Screening for malignant [facility] 00:00:00 neoplasm of colon Medical Ce nter (procedure) [code = 509716733] Future Scheduled 1963 Screening for malignant [facility] 00:00:00 neoplasm of colon Medical Ce nter (procedure) [code = 001796209] Future Scheduled 1963 Screening for malignant [facility] 00:00:00 neoplasm of colon Medical Ce nter (procedure) [code = 038770219] Future Scheduled 1963 Sigmoidoscopy [facility]code [facility]oscopy] Medical Cente r Future Scheduled 1963 Screening for malignant [facility] 00:00:00 neoplasm of breast Medical C enter (procedure) [code = 865118977] Future Scheduled 1963 CT Colonography (combo) [facility] 00:00:00 [code = CT Colonography Medi yesy Center (combo)] Future Scheduled 1963 Screening for malignant [facility] 00:00:00 neoplasm of colon Medical Ce nter (procedure) [code = 248850418] Future Scheduled 1963 Screening for malignant [facility] 00:00:00 neoplasm of colon Medical Ce nter (procedure) [code = 720097073] Future Scheduled 1963 Screening for malignant [facility] 00:00:00 neoplasm of colon Medical Ce nter (procedure) [code = 593300295] Future Scheduled 1963 Screening for malignant [facility] 00:00:00 neoplasm of colon Medical Ce nter (procedure) [code = 731652324] Future Scheduled 1963 Sigmoidoscopy [facility]oscopy] Medical Cente r Future Scheduled 1963 Screening for malignant [facility] 00:00:00 neoplasm of breast Medical C enter (procedure) [code = 033317528] Future Scheduled 1963 CT Colonography (combo) [facility] 00:00:00 [code = CT Colonography Medi yesy Center (combo)] Future Scheduled 1963 Screening for malignant [facility] 00:00:00 neoplasm of colon Medical Ce nter (procedure) [code = 367099252] Future Scheduled 1963 Screening for malignant [facility] 00:00:00 neoplasm of colon Medical Ce nter (procedure) [code = 060594956] Future Scheduled 1963 Screening for malignant [facility] 00:00:00 neoplasm of colon Medical Ce nter (procedure) [code = 745284498] Future Scheduled 1963 Screening for malignant [facility] 00:00:00 neoplasm of colon Medical Ce nter (procedure) [code = 458869996] Future Scheduled 1963 Sigmoidoscopy [facility]code [facility]oscopy] Medical Cente r Future Scheduled 1963 Screening for malignant [facility] 00:00:00 neoplasm of breast Medical C enter (procedure) [code = 661823095] Future Scheduled 1963 CT Colonography (combo) [facility] 00:00:00 [code = CT Colonography Medi yesy Center (combo)] Future Scheduled 1963 Screening for malignant [facility] 00:00:00 neoplasm of colon Medical Ce nter (procedure) [code = 553457488] Future Scheduled 1963 Screening for malignant [facility] 00:00:00 neoplasm of colon Medical Ce nter (procedure) [code = 912936802] Future Scheduled 1963 Screening for malignant [facility] 00:00:00 neoplasm of colon Medical Ce nter (procedure) [code = 800991568] Future Scheduled 1963 Screening for malignant [facility] 00:00:00 neoplasm of colon Medical Ce nter (procedure) [code = 377003072] Future Scheduled 1963 Sigmoidoscopy [facility]oscopy] Medical Cente r Future Scheduled 1963 Fluoride Varnish [code = [facility] Test 00:00:00 Fluoride Varnish] Future Scheduled 1963 Screening for malignant [facility] 00:00:00 neoplasm of breast Medical C enter (procedure) [code = 061736089] Future Scheduled 1963 CT Colonography (combo) [facility] 00:00:00 [code = CT Colonography Medi yesy Center (combo)] Future Scheduled 1963 Screening for malignant [facility] 00:00:00 neoplasm of colon Medical Ce nter (procedure) [code = 881708551] Future Scheduled 1963 Screening for malignant [facility] 00:00:00 neoplasm of colon Medical Ce nter (procedure) [code = 058890485] Future Scheduled 1963 Screening for malignant [facility] 00:00:00 neoplasm of colon Medical Ce nter (procedure) [code = 189120673] Future Scheduled 1963 Screening for malignant [facility] 00:00:00 neoplasm of colon Medical Ce nter (procedure) [code = 136877597] Future Scheduled 1963 Sigmoidoscopy [facility]code [facility]oscopy] Medical Cente r Future Scheduled 1963 Screening for malignant [facility] 00:00:00 neoplasm of breast Medical C enter (procedure) [code = 131566829] Future Scheduled 1963 CT Colonography (combo) [facility] 00:00:00 [code = CT Colonography Medi yesy Center (combo)] Future Scheduled 1963 Screening for malignant [facility] 00:00:00 neoplasm of colon Medical Ce nter (procedure) [code = 027810767] Future Scheduled 1963 Screening for malignant [facility] 00:00:00 neoplasm of colon Medical Ce nter (procedure) [code = 205929221] Future Scheduled 1963 Screening for malignant [facility] 00:00:00 neoplasm of colon Medical Ce nter (procedure) [code = 853160810] Future Scheduled [facility] Influ[facility]al [facility] [...] yrs)] Future Scheduled [facility] for [facility] neoplasm of colon (procedure) [code = 317741392] Future Scheduled [facility] Annual (FIT/FOBT) Age 50 to 75 [code = Colorectal Cancer Scrn Annual (FIT/FOBT) Age 50 to 75] Future Scheduled Breast [facility] [place] (Yearly) [code = Breast Cancer Scrn (Yearly)] Future Scheduled Scre[facility] for malignant [facility] neoplasm of cervix (procedure) [code = 495634588] Future Scheduled Screening for malignant [facility] neoplasm of cervix (procedure) [code = 990649204] Future Scheduled Cervical Cancer Scrn (3 [facility] Yrs) [code = Cervical Cancer Scrn (3 Yrs)] Future Scheduled COVID-19 Vaccine (1) [facility] [code = COVID-19 Vaccine (1)] Encounters Start End Encounter Admission Attending Care Care Encounter Source Date/Time Date/Time Type Type Clinicians Facility Department ID 2023-12-07 2023-12-07 Outpatient R SAURABH CARVAJAL [facility] B [id number] [facility] 09:30:00 09:30:[address] [facility] 2023-05-11 2023-05-11 Outpatient VINEET POOLE [facility] [id number] SLE 00:00:00 00:00:00 JAE 2023-01-16 2023-01-16 Travel 1.2.840.1 [id number] [id number] Methodi 00:00:00 00:00:[address] 3.430.2.7 0.2.7.3.698 Ho spita .3.198546 084.8 l .8 2023-01-16 2023-01-16 Transcribe Boris, 1.2.840.1 [id number] Methodi 00:00:00 00:00:00 Orders Shawna [address]332.1.[address] 3.430.2.7 Hospit a .3.633413 l .8 2023-01-10 2023-01-10 Outpatient VINEET POOLE [facility] [id number] SLE 13:49:37 13:49:37 JAE 2023-01-05 2023-01-05 Outpatient JEREMY ZHONG [facility] [id number] [facility] 00:00:00 00:00:00 Juanjose Medicin rudi 2023-01-03 2023-01-03 Outpatient VINEET POOLE [facility] [id number] SLE 00:00:00 00:00:00 JAE 2022-12-19 2022-12-19 Outpatient VINEET POOLE [facility] [id number] [facility] 00:00:00 00:00:00 JAE 2022-12-16 2022-12-[address] [facility] [id number] [facility] [address] 00:00:00 00:00:00 Only [facility] 2022-12-14 2022-12-14 Telephone Wei [facility] 1.2.840.11 [id number] [facility] 00:00:00 00:00:00 Saurabh ORANTES 350.1.13.10 y of WOMEN'S 4.2.7.2.686 [facility] [id number] [facility] [address] 2022-12-06 2022-12-06 Outpatient R SAURABH CARVAJAL [facility] B [id number] [facility] 13:00:00 13:52:[address] [facility] 2022-12-06 2022-12-06 Office Wei [facility] 1.2.840.114 [id number] Univers 13:00:00 13:52:57 Visit Saurabh ORANTES 350.1.13.10 it [place] [facility] 4[place]7.2[place] [facility] [id number] [facility] [address] 2022-12-06 2022-12-06 Orders Doctor LUCIANO 1.2.840.114 [id number] Univers 00:00:00 00:00:00 Only Unassigned, JUANCARLOS 350.1.13.10 ity of [place] [employer] [facility] 4.2.7.2.686 [place] [id number] [facility] [address] 2022-11-30 2022-11-30 Out[facility] [id number] Univers 10:30:00 10:30:[address] [facility] 2022-11-30 2022-11-30 Outpatient R [facility] [id number] Univers 10:30:00 10:30:[address] [facility] 2022-10-04 2022-10-04 Telephone Long [facility] [id number] [facility]22-[facility] 2022-09-13 Office [facility] [id number] 13:30:00 13:45:00 Visit Jae Howie [facility] 2022-09-13 2022-09-13 Outpatient KEVIN KIRBY [facility] [id number] [facility] 11:41:47 11:41:47 JAE 2022-09-06 2022-09-06 Office JEREMY ZHONG 1.2.840.114 [id number] [facility] 07:39:49 09:09:52 Visit AMBULATOR 350.1.13.21 College Y 0.2.7.2.686 of [id number] [address] 2022-09-02 2022-09-02 Documentat Riley [facility] [id number] 00:00:00 00:00:00 cedric Edwards [facility] 2022-07-18 2022-07-18 Outpatient EL SEALS, SLE SLE [id number] SLE 14:13:32 23:59:00 [facility] 2022-07-18 2022-07-18 Hospital Seals, [facility] [id number] 14:00:00 23:59:00 Encounter [facility] 2022-07-18 2022-07-18 Outpatient EL SEALS, SLE SLE [id number] SLE 14:13:03 13:59:00 [facility] 2022-07-18 2022-07-18 Hospital Seals, [facility] [id number] 12:30:00 13:59:00 Encounter [facility] 2022-07-18 2022-07-18 Hospital Seals, [facility] [id number] 10:02:46 12:29:00 Encounter [facility] 2022-07-18 2022-07-18 Outpatient EL SEALS, SLE SLE [id number] SLE 10:02:45 12:29:00 [facility] 2022-07-06 2022-07-06 Documentgill Matta [facility] [id number] 00:00:00 00:00:00 cedric [facility] 2022-06-24 2022-06-24 Documentat Kit, [facility] [id number] 00:00:00 00:00:00 cedric [facility] 2022-06-23 2022-06-23 Colemanat Riley [facility] [id number] 00:00:00 00:00:00 cedric [facility] 2022-06-21 2022-06-21 Outpatient [facility] [id number] [facility] 00:00:00 23:59:00 Juanjose Medicin e 2022-06-21 2022-06-21 Office VINEET Poole [facility] [id number] 15:15:00 15:45:[address] [facility] 2022-06-21 2022-06-21 Outpatient KEVIN KIRBY [facility] [id number] SLE 14:20:07 14:20:07 [place] 2022-06-21 2022-06-21 Orders [facility] [id number] 00:00:00 00:00:00 Only [facility] 2022-06-20 2022-06-20 Office Deep [facility] [id number] 14:45:00 15:15:[address] [facility] 2022-06-20 2022-06-20 Outpatient KEVIN KIRBY [facility] [id number] SLE 00:00:00 00:00:00 [place] 2022-06-16 2022-06-[address] [facility] [id number] [facility] 00:00:00 00:00:[address] [facility] 2022-06-06 2022-06-06 Outpatient R [address]I [address] [facility] [id number] [facility] 00:00:00 00:00:00 SAURABH CARVAJAL [facility] 2022-05-20 2022-05-20 Concepcion Lin [facility] [id number] 00:00:00 00:00:00 Only Qiana Edwards [facility] 2022-05-20 2022-05-20 Documentat Riley [facility] [id number] 00:00:00 00:00:00 ion Qiana [facility] 2022-05-14 2022-05-16 Inpatient ER SATHYA, [facility] Emergency [id number] SLE 16:03:00 19:02:00 LEANNE 2022-05-14 2022-05-16 Hospital Harley Barragan [facility] [id number] 16:03:00 19:02:00 Encounter Leanne Mcdonnell [facility] 2022-05-15 2022-05-15 Outpatient [facility] [id number] [facility] 00:00:00 23:59:00 [place] ed[place] of Medicin e 2022-05-15 2022-05-15 Travel [facility] [id number] [facility] 00:[facility] 00:00:00 [facility] 2022-05-14 2022-05-14 Orders [facility] [id number] 00:00:00 00:00:00 Only [facility] 2021-12-08 2021-12-08 Case Wei [facility] 1.2.840.114 [id number] Univers 00:00:00 00:00:00 Management Saurabh ORANTES 350.1.13.10 ity [place] [id number] [address] 2021-12-07 2021-12-07 Backhaul Driver 2, Adc Lab [facility] 1.2.840.114 [id number] Univers 11:15:00 11:30:00 Visit Eddie [place] 350.1.13.10 ity [facility] [place] [id number] [address] 2021-12-07 2021-12-07 Outpatient R EDDEI [facility] [id number] [facility] 11:15:00 11:15:[address] [facility] 2021-11-30 2021-11-30 Office Saurabh Carvajal [facility] 1.2. 840.114 [id number] Univers 09:00:00 10:42:48 Visit Eddie [place] 350.1.13.10 it[place] [id number] [address] 2021-11-30 2021-11-30 Outpatient R EDDIE [facility] [id number] Univers 09:00:00 10:42:[address] [facility] 2021-11-30 2021-11-30 Outpatient R BENITO [facility] [id number] Univers 09:00:00 09:00:[address] [facility] 2021-11-24 2021-11-24 Pre Visit KileyFANTASMAFrancine 1.2.076.965 [id number] Univers 00:00:00 00:00:00 Outreach Maya CORADO 350.1.13.10 [id number] [address] 2021-08-05 2021-08-05 Outpatient Brandon [facility] [id number] Univers 15:30:00 15:30:[address] [facility] 2021-08-02 2021-08-02 Pre Visit KileyFANTASMAFrancine [id number] [id number] Univers 00:00:00 00:00:00 Outreach Maya MARTINY 350.1.13.10 [place] [id number] [address] 2021-04-22 2021-04-22 Letter LUCIANO Patel 1.2.840.114 [id number] Univers 00:00:00 00:00:00 (Out) Fannie Woodson JUANCARLOS 350.1.13.10 i ty of HOSPITAL 4.2.7.2.686 [place] as [id number] [address] 2021-04-21 2021-04-21 Laboratory Only, Ang Db Test [facility] 1.2.8 40.114 [id number] Univers 16:03:49 16:18:49 Only Vielka Britton [facility] [place] 350.1.13.10 ity of [place] 4.2.7.2.686 [place] as Delmar?Blea [id number] [address] Medical Office Building 2021-04-21 2021-04-21 Outpatient Brandon [facility] [id number] Univers 15:45:00 15:45:[address] [facility] 2021-04-21 2021-04-21 Letter Doctor LUCIANO 1.2.840.114 [id number] Univers 00:00:00 00:00:00 (Out) Unassigned, JUANCARLOS 350.1.13.10 ity of [place] [facility] 4.2.7.2.686 [place] as [id number] [facility] [address] 2021-04-21 2021-04-21 Letter Doctor LUCIANO 1.2.840.114 [id number] Univers 00:00:00 00:00:00 (Out) Unassigned, JUANCARLOS 350.1.13.10 ity of [place] [facility] 4.2.7.2.686 [place] as [phone] [facility] [address] 2021-04-21 2021-04-21 Orders Doctor LUCIANO 1.2.840.114 [id number] Univers 00:00:00 00:00:00 Only Unassigned, JUANCARLOS 350.1.13.10 ity of [place] [facility] 4.2.7.2.686 [place] as [phone] [facility] [address] 2021 2021-02-27 Inpatient ISAIAS Carcamo [facility].01 [id number] [facility] 15:47:00 11:36:00 [facility] 01 [facility] 2021-02-25 2021-02-25 Outpatient BRENDA Antunez LABO [id number] [facility] 18:45:00 18:45:00 Jaiden 73 [facility] 2020-12-28 2020-12-28 Outpatient IE IE [id number] Memoria 15:45:00 15:45:[address] [facility] 2020-12-28 2020-12-28 Outpatient MHIE MHIE [id number] Memoria 15:45:00 15:45:[address] [facility] 2020-07-02 2020-07-02 Emergency , [facility] [id number] [id number] 14:38:00 16:16:00 Elier Chris 350.1.13.10 [place] 4.2.7.2.686 [place] [id number] 2020-07-02 2020-07-02 Emergency X [facility] ERT [id number] Univers 14:28:00 14:28:[address] [facility] 2020-04-29 2020-04-29 [facility] [id number] 12:18:00 15:08:00 Eddie Chris 350.1.13.10 [place] 4.2.7.2.686 [place] [id number] 084 2020-04-29 2020-04-29 Emergency [facility] [id number] Univers 12:07:00 12:07:[address] [facility] 2020-03-17 2020-03-17 Emergency [facility] [id number] 11:37:56 13:51:00 Elier Dot 350.1.13.10 [place] 4.2.7.2.686 [place] [id number] [facility] 2020-03-17 2020-03-17 Emergency X [facility] ERT [id number] Univers 11:26:00 11:26:00 [facility] 2020-03-17 2020-03-17 Orders Doctor WOLF 1.2.840.114 [id number] 00:00:00 00:00:00 Only Unassigned, JUANCARLOS 350.1.13.10 [place] [address]30.2.7.2.686 [id number] 2019-05-29 2019-05-29 Emergency [facility] [id number] Univers 06:47:32 09:46:[address] [facility] 2018-12-10 2018-12-10 Office nullFlavo Family [id number] Memoria 21:03:58 22:56:31 Visit r Andrew Andrews Same Day 2018-12-10 2018-12-10 Emergency nullFlavo Emergency [id number] Memoria 16:20:39 17:56:00 r Sachin feliciano (6520) ELIZEER Jenkins 2018-12-10 2018-12-10 Outpatient [facility] [id number] Veloz 16:03:58 16:03:58 Health 2018-12-10 2018-12-10 Emergency [facility] [id number] Magdiel 11:20:39 11:20:39 Health 2017-09-01 2017-09-01 Emergency [facility] [id number] Magdiel 10:29:00 10:29:00 Health 2015-02-04 2015-02-05 Outpt Diag nullFlavo [facility] [id number] Memoria 13:00:00 04:59:00 Services r Outpatient 00 l Imaging Nghia Morin 2015-02-04 2015-02-05 Outpt Diag nullFlavo [facility] [id number] Memoria 13:00:00 04:59:00 Services r Outpatient 00 l Imaging Nghia Morin 2015-02-04 2015-02-04 Outpatient Ashish, 2.16.840. 2.16.840.1. [id number] 08:00:00 23:59:00 Julian Zheng [id number]. [id number] 3.615.0.1 5.0.557 20 4928-05-11 2015-01-06 Outpatient nullFlavo [facility] [id number] Memoria 15:04:00 04:59:00 [place] 31 [facility] 2015-01-05 2015-01-06 Outpatient nullFlavo [facility] [id number] Memoria 15:04:00 04:59:00 r [place] 31 [facility] 2015-01-05 2015-01-05 Outpatient Silvano-Fu 2.16.840. 2.16.840. 1. [id number] 10:04:00 23:59:00 jono, [id number]. [id number] 31 Julita M 3.615.0.1 5.0.450 12 6993-09-23 2014-05-20 Bedded nullFlavo [facility] [id number] Memoria 11:14:00 19:30:00 Outpatient r [place] 00 [facility] 2014-05-20 2014-05-20 Bedded nullFlavo [facility] [id number] Memoria 11:14:00 19:30:00 Outpatient r [place] 00 [facility] 2014-05-20 2014-05-20 Outpatient Tito 2.16.840. 2.16.840.1. [id number] 06:14:00 14:30:00 Larry Woodson [id number]. [id number] 00 3.615.0.1 5.0.208 44 6839-05-05 2014-01-03 Inpatient [facility] [id number] Memoria 07:50:00 03:00:[address] [place] [address] [facility] 2013-12-30 2014-01-03 Inpatient [facility] [id number] Memoria 07:50:00 03:00:[address] [place] [address] [facility] 2013-12-30 2014-01-02 Outpatient Terminella, 2.16.840. 2.16.840. 1. [id number] 02:50:00 22:00:00 Rivera [id number]. [id number] 3.615.0.1 5.0.101 01 Results Test Description Test Time Test Comments Results Result Comments Source BASIC METABOLIC PANEL 2023-01-10 14:39:36 Test Item Value Reference Range Interpretation Comme nts SODIUM (BEAKER) (test 139 meq/L 136-145 code = 381) POTASSIUM (BEAKER) 4.7 meq/L 3.5-5.1 (test code = 379) CHLORIDE (BEAKER) (test 103 meq/L 98-107 code = 382) CO2 (BEAKER) (test code 28 meq/L 22-29 = 355) BLOOD UREA NITROGEN 10 mg/dL 7-21 (BEAKER) (test code = 354) CREATININE (BEAKER) 0.85 mg/dL 0.57-1.25 (test code = 358) GLUCOSE RANDOM (BEAKER) 97 mg/dL 70-105 (test code = 652) CALCIUM (BEAKER) (test 9.2 mg/dL 8.4-10.2 code = 697) EGFR (BEAKER) (test 79 mL/min/1.73 sq In terpretation of eGFR values code = 1092) m Stage Descripti on Result [...] s not applicable for dialysis estefanía santos Golf Instructor ID - FSECBC W/PLT COUNT & AUTO [id number] 14:24:12 Test Item Value Reference Range Interpretation Comments WHITE BLOOD CELL COUNT (BEAKER) 5.9 K/ L 3.5-10.5 (test code = 775) RED BLOOD CELL COUNT (BEAKER) 3.99 M/ L 3.93-5.22 (test code = 761) HEMOGLOBIN (BEAKER) (test code = 12.5 GM/DL 11.2-15.7 410) HEMATOCRIT (BEAKER) (test code = 38.7 % 34.1-44.9 411) MEAN CORPUSCULAR VOLUME (BEAKER) 97 fL 79-95 H (test code = 753) MEAN CORPUSCULAR HEMOGLOBIN 31.3 pg 25.6-32.2 (BEAKER) (test code = 751) MEAN CORPUSCULAR HEMOGLOBIN CONC 32.3 GM/DL 32.2-35.5 (BEAKER) (test code = 752) RED CELL DISTRIBUTION WIDTH 12.5 % 11.7-14.4 (BEAKER) (test code = 412) PLATELET COUNT (BEAKER) (test 147 K/CU MM 150-450 L code = 756) MEAN PLATELET VOLUME (BEAKER) 10.6 fL 9.4-12.3 (test code = 754) NUCLEATED RED BLOOD CELLS 0 /100 WBC 0-0 (BEAKER) (test code = 413) NEUTROPHILS RELATIVE PERCENT 36 % (BEAKER) (test code = 429) LYMPHOCYTES RELATIVE PERCENT 54 % (BEAKER) (test code = 430) MONOCYTES RELATIVE PERCENT 8 % (BEAKER) (test code = 431) EOSINOPHILS RELATIVE PERCENT 2 % (BEAKER) (test code = 432) BASOPHILS RELATIVE PERCENT 0 % (BEAKER) (test code = 437) NEUTROPHILS ABSOLUTE COUNT 2.14 K/ L 1.56-6.13 (BEAKER) (test code = 670) LYMPHOCYTES ABSOLUTE COUNT 3.14 K/ L 1.18-3.74 (BEAKER) (test code = 414) MONOCYTES ABSOLUTE COUNT (BEAKER) 0.47 K/ L 0.24-0.36 H (test code = 415) EOSINOPHILS ABSOLUTE COUNT 0.10 K/ L 0.04-0.36 (BEAKER) (test code = 416) BASOPHILS ABSOLUTE COUNT (BEAKER) 0.01 K/ L 0.01-0.08 (test code = 417) IMMATURE GRANULOCYTES-RELATIVE 0.20 % 0.00-1.00 PERCENT (BEAKER) (test code = 2801) COMPREHENSIVE METABOLIC [id number] 12:53:08 Test Item Value Reference Range Interpretation Comments TOTAL PROTEIN 7.4 gm/dL 6.0-8.3 (BEAKER) (test code = 770) ALBUMIN (BEAKER) 4.2 g/dL 3.5-5.0 (test code = 1145) ALKALINE 140 U/L 40-150 PHOSPHATASE (BEAKER) (test code = 346) BILIRUBIN TOTAL 0.3 mg/dL 0.2-1.2 (BEAKER) (test code = 377) SODIUM (BEAKER) 141 meq/L 136-145 (test code = 381) POTASSIUM (BEAKER) 4.0 meq/L 3.5-5.1 (test code = 379) CHLORIDE (BEAKER) 107 meq/L 98-107 (test code = 382) CO2 (BEAKER) (test 29 meq/L 22-29 code = 355) BLOOD UREA 7 mg/dL 7-21 NITROGEN (BEAKER) (test code = 354) CREATININE 0.71 mg/dL 0.57-1.25 (BEAKER) (test code = 358) GLUCOSE RANDOM 84 mg/dL 70-105 (BEAKER) (test code = 652) CALCIUM (BEAKER) 9.7 mg/dL 8.4-10.2 (test code = 697) AST (SGOT) 19 U/L 5-34 (BEAKER) (test code = 353) ALT (SGPT) 15 U/L 6-55 (BEAKER) (test code = 347) EGFR (BEAKER) 98 Interpretatio n of eGFR (test code = [...] not as accur ate as Creatinine Katherine adan in predicting glom erular filtration rate . Estimated GFR is not appl icable for dialysis patien ts Golf Instructor ID - MARCOCBC W/PLT COUNT & AUTO [id number] 12:38:19 Test Item Value Reference Range Interpretation [...] = 2801) CT, HEART CORONARY YESY, WO [id number] 10:02:00[facility] ppo-oon for dr Shilisted Reason for Exam - Click Yes and Enter Reason Below->No [facility] 1965 Sex: FAddendum BeginsREPORT STATUS:A I concur with the nonvascular findings. Signed: Tim Seay MDReport Verified Date/Time: 07/29/2022 10:02:26 Reading Location: [facility] Radiology ReadingRoomAddendum EndsFINAL REPORT CT scan for [...] performed. Coronary calcification was analyzed using the VeryLastRoom system software. These are the results of [...] left main coronary artery arises from the leftsinus of Valsalva and give rise to the left anterior descending of the left circumflex arteries in the normal fashion. The right coronary artery arises from the right sinus of Valsalva. NON-VASCULAR: The thyroid gland appears unremarkable. The chest wall and mediastinum appears unremarkable. No signifi cant adenopathy is seen in the mediastinum. In the lung windows, no endobronchial lesion is seen. Nopleural effusion is identified. Scarring is identified right [...] An addendum will be dictated by the Quality Assurance Coach Radiologist regarding the nonvascular findings. THE REPORT WILL ONLY BE CONSIDERED COMPLETE AFTER THE ADDENDUM HAS BEEN DICTATED. Signed: Jean-Pierre Yarbrough Verified Date/Time : 07/23/2022 08:08:03 2D Echo W/Doppler(CW/PW/Color)2022-07-18 18:01:25Ejection FractionSLEH ECHO [facility] [place] Echo W/Doppler(CW/PW/Color)2022-07-18 18:01:25Ejection [facility]SLEH [facility]CHO [facility] [place] [facility] Echo W/Doppler(CW/PW/Color) 2022-07-18 18:01:25Ejection [facility]SLEH [facility]CHO [facility] [place] Echo W/Doppler(CW/PW/Color)2022-07-18 18:01:25Ejection [facility]ractionSLEH ECHO [facility] Echo W/Doppler(CW/PW/Color)2022-07-18 18:01:25Ejection FractionSLEH ECHO [facility] Echo W/Doppler(CW/PW/Color) 2022-07-18 18:01:25Ejection FractionSLE ECHO HEARTLAB [facility] ChapelCOMPREHENSIVE METABOLIC [id number] 15:38:11 Test Item Value Reference Range Interpretation [...] not appl icable for dialysis patien ts Golf Instructor ID - BSCBC W/PLT COUNT & AUTO [id number] 15:15:49 Test Item Value Reference Range Interpretation [...] code = 2801) MYOCARD IMAGING, MULTI, PHARM, [id number] 16:45:00Unlisted Reason for Exam - Click Yes and Enter Reason Below->No [facility] 1965 Sex: FFINAL REPORT PROCEDURE: Rest/Stress MYOCARDIAL PERFUSION SPECT with regadenoson\\XA9\\ CPT CODE: 28051 INDICATION: Chest pain R07.9 HISTORY: Cardiac risk [...] 30 seconds after start of stress. Heart rate was 62 beats/min at rest and 96 beats/min [...] after rest and stress injections show normal LVactivity. LV and RV volumes appear normal. Gated images obtained at rest after stress show normal LV wall motion and thickening. QGS LVEF is 64%. IMPRESSION: 1. Normal study. 2. Appropriate pharmacologic stress. 3. Normal myocardial perfusion. 4. Normal resting LV function. 5. Normal extracardiac tracer distribution. 6. No prior study. Signed: Ranjan Almaraz MDReport Verified Date/Time: 05/16/2022 16:45:53 APTT 2022-05-16 15:17:06 Test Item Value Reference Range Interpretation Comments PARTIAL THROMBOPLASTIN TIME 62.6 seconds 22.5-36.0 H (BEAKER) (test code = 760) [id number] 04:51:58 Test Item Value Reference Range Interpretation Comments MAGNESIUM (BEAKER) (test code = 1.8 mg/dL 1.6-2.6 627) Golf Instructor JIMENA HIDALGO LBASIC METABOLIC [id number] 04:51:57 Test Item Value Reference Range Interpretation [...] (test code = 697) EGFR (BEAKER) 101 Interpretatio n of eGFR (test code = mL/min/1.73 values [...] not as accur ate as Creatinine Katherine adan in predicting glom erular filtration rate . Estimated GFR is not appl icable for dialysis patien ts Golf Instructor ID - GWEN [id number] 04:32:03 Test Item Value Reference Range Interpretation [...] WBC 0-0 (BEAKER) (test code = 413) [id number] 16:30:12 Test Item Value Reference Range Interpretation Comments PARTIAL THROMBOPLASTIN TIME 37.5 seconds 22.5-36.0 H (BEAKER) (test code = 760) [id number] 06:58:36 Test Item Value Reference Range Interpretation [...] (test code = 413) HIGH SENSITIVITY TROPONIN [id number] 02:22:02 Test Item Value Reference Range Interpretation Comments HIGH SENSITIVITY 182 pg/ml See_Comment H [Automated message] TROPONIN I (test code The sy stem which = 5433307) generated this result transmitted ref erence range: <=17. Th e reference range was not used to int erpret this result as normal/abnormal . Golf Instructor ID - PIAYA LThe BEEF TRIMMER STAT High Sensitivity Troponin-I results should be used in conjunction with other diagnostic information such as ECG, clinical observations and information, and patient symptoms to aid in the diagnosis of CT.SARS-CoV2/RT-PCR (Asymptomatic ONLY)2022-05-15 01:13:52 Test Item Value Reference Interpretation Comments Range SARS-COV2/RT-PCR Negative Negative The SARS-Co V-2 (test code = target nucleic 04814-0) acids are not detected in thi s specimen. Negat valencia results do not preclude SARS-C oV-2 infection and should not be u sed as the sole bas is for patient management decisions. Nega tive results must be combined with clinical observations, patient history , and epidemiolog ical information. A false negative result may occu r if a specimen is improperly collected, transported or handled. This S ARS CoV-2 test is a rapid, real-odalis e RT-PCR test intended for th e qualitative detection of nucleic acid fr om SARS-CoV-2 in a nasopharyngeal swab specimen [facility] from individual s suspected of COVID-19 by [...] revoked sooner. Fact Sheet for Healthcare Providers: https://www.[employer]/Documents/Xp ert%20Xpress%20SAR S%20CoV-2/Fact%20S heets/302-3802%20S ARS-COV-2%20HEALTH CARE%20PROVIDERS%2 0FACT%20SHEET.pdf Fact Sheet for Healthcare Patients: https://www.[employer]/Documents/Xp ert%20Xpress%20SAR S%20CoV-2/Fact%20S heets/302-3801%20S ARS-COV-2%20PATIEN T%20FACT%20SHEET.p df Lab Interpretation Normal (test code = 68161-5) [facility]2022-05-15 01:13:52 Test Item Value Reference Interpretation Comments Range SARS-COV2/RT-PCR Negative Negative The SARS-Co V-2 (test code = target nucleic 11211-0) acids are not detected in thi s specimen. Negat valencia results do not preclude SARS-C oV-2 infection and should not be u sed as the sole bas is for patient management decisions. Nega tive results must be combined with clinical observations, patient history , and epidemiolog ical information. A false negative result may occu r if a specimen is improperly collected, transported or handled. This S ARS CoV-2 test is a rapid, real-odalis e RT-PCR test intended for th e [...] revoked sooner. Fact Sheet for Healthcare Providers: https://www.[employer]/Documents/Xp ert%20Xpress%20SAR S%20CoV-2/Fact%20S heets/302-3802%20S ARS-COV-2%20HEALTH CARE%20PROVIDERS%2 0FACT%20SHEET.pdf Fact Sheet for Healthcare Patients: https://www.[employer]/Documents/Xp ert%20Xpress%20SAR S%20CoV-2/Fact%20S heets/302-3801%20S ARS-COV-2%20PATIEN T%20FACT%20SHEET.p df Lab Interpretation Normal (test code = 51171-8) [facility]2022-05-15 01:13:52 Test Item Value Reference Interpretation Comments Range SARS-COV2/RT-PCR Negative Negative The SARS-Co V-2 (test code = target nucleic 77371-7) acids are not detected in thi s specimen. Negat valencia results do not preclude SARS-C oV-2 infection and should not be u sed as the sole bas is for patient management decisions. Nega tive results must be combined with clinical observations, patient history , and epidemiolog ical information. A false negative result may occu r if a specimen is improperly collected, transported or handled. This S ARS CoV-2 test is a rapid, real-odalis e RT-PCR test intended for th e [...] revoked sooner. Fact Sheet for Healthcare Providers: https://www.[employer]/Documents/Xp ert%20Xpress%20SAR S%20CoV-2/Fact%20S heets/302-3802%20S ARS-COV-2%20HEALTH CARE%20PROVIDERS%2 0FACT%20SHEET.pdf Fact Sheet for Healthcare Patients: https://www.[employer]/Documents/Xp ert%20Xpress%20SAR S%20CoV-2/Fact%20S heets/302-3801%20S ARS-COV-2%20PATIEN T%20FACT%20SHEET.p df Lab Interpretation Normal (test code = 29564-2) [facility]2022-05-15 01:13:52 Test Item Value Reference Interpretation Comments Range SARS-COV2/RT-PCR Negative Negative The SARS-Co V-2 (test code = target nucleic 66806-5) acids are not detected in thi s specimen. Negat valencia results do not preclude SARS-C oV-2 infection and should not be u sed as the sole bas is for patient management decisions. Nega tive results must be combined with clinical observations, patient history , and epidemiolog ical information. A false negative result may occu r if a specimen is improperly collected, transported or handled. This S ARS CoV-2 test is a rapid, real-odalis e RT-PCR test intended for th e [...] revoked sooner. Fact Sheet for Healthcare Providers: https://www.[employer]/Documents/Xp ert%20Xpress%20SAR S%20CoV-2/Fact%20S heets/302-3802%20S ARS-COV-2%20HEALTH CARE%20PROVIDERS%2 0FACT%20SHEET.pdf Fact Sheet for Healthcare Patients: https://www.[employer]/Documents/Xp ert%20Xpress%20SAR S%20CoV-2/Fact%20S heets/302-3801%20S ARS-COV-2%20PATIEN T%20FACT%20SHEET.p df Lab Interpretation Normal (test code = 11231-5) [facility]22-[facility]-15 01:13:52 Test Item Value Reference Interpretation Comments Range SARS-COV2/RT-PCR Negative Negative The SARS-Co V-2 (test code = target nucleic 96567-0) acids are not detected in thi s specimen. Negat valencia results do not preclude SARS-C oV-2 infection and should not be u sed as the sole bas is for patient management decisions. Nega tive results must be combined with clinical observations, patient history , and epidemiolog ical information. A false negative result may occu r if a specimen is improperly collected, transported or handled. This S ARS CoV-2 test is a rapid, real-odalis e RT-PCR test intended for th e [...] revoked sooner. Fact Sheet for Healthcare Providers: https://www.[employer]/Documents/Xp ert%20Xpress%20SAR S%20CoV-2/Fact%20S heets/302-3802%20S ARS-COV-2%20HEALTH CARE%20PROVIDERS%2 0FACT%20SHEET.pdf Fact Sheet for Healthcare Patients: https://www.[employer]/Documents/Xp ert%20Xpress%20SAR S%20CoV-2/Fact%20S heets/302-3801%20S ARS-COV-2%20PATIEN T%20FACT%20SHEET.p df Lab Interpretation Normal (test code = 43594-0) [facility]15 01:13:52 Test Item Value Reference Interpretation Comments Range SARS-COV2/RT-PCR Negative Negative The SARS-Co V-2 (test code = target nucleic 38578-1) acids are not detected in thi s specimen. Negat valencia results do not preclude SARS-C oV-2 infection and should not be u sed as the sole bas is for patient management decisions. Nega tive results must be combined with clinical observations, patient history , and epidemiolog ical information. A false negative result may occu r if a specimen is improperly collected, transported or handled. This S ARS CoV-2 test is a rapid, real-odalis e RT-PCR test intended for th e [...] revoked sooner. Fact Sheet for Healthcare Providers: https://www.[employer]/Documents/Xp ert%20Xpress%20SAR S%20CoV-2/Fact%20S heets/302-3802%20S ARS-COV-2%20HEALTH CARE%20PROVIDERS%2 0FACT%20SHEET.pdf Fact Sheet for Healthcare Patients: https://www.[employer]/Documents/Xp ert%20Xpress%20SAR S%20CoV-2/Fact%20S heets/302-3801%20S ARS-COV-2%20PATIEN T%20FACT%20SHEET.p df Lab Interpretation Normal (test code = 14060-0) [facility])2022-05-15 01:13:52 Test Item Value Reference Range Interpretation Comments SARS-COV2/RT-PCR Negative Negative The SARS-Co V-2 target (test code = nucleic acids a re not 5963465) detected in thi s specimen. Negative result [...] revoked sooner. Fact Sheet for Healthcare Providers: https://www.[employer] m/Documents/Xpert%20Xpress%20SARS%20CoV-2/Fact%20Sheets/3023802%81VAQQ-LRI-5%20 HEALTHCARE%20PROVIDERS%20FACT%20SHEET.pdf Fact Sheet for Healthcare Patients: https://www.[employer]/Documents/Xpert%20Xp ress%20SARS%20CoV-2/Fact%20Sheets/302-3801%86LTEQ-OVL-9%20PATIENT%20FACT%20SHEET .pdfHIGH SENSITIVITY TROPONIN [id number] 23:36:40 Test Item Value Reference Range Interpretation Comments HIGH SENSITIVITY 148 pg/ml See_Comment H [Automated message] TROPONIN I (test code The sy stem which = 2203512) generated this result transmitted ref erence range: <=17. Th e reference range was not used to int erpret this result as normal/abnormal . Golf Instructor ID - PIAYA LThe BEEF TRIMMER STAT High Sensitivity Troponin-I results should be used in conjunction with other diagnostic information such as ECG, clinical observations and information, and patient symptoms to aid in the diagnosis of CT.[id number] 23:35:01 Test Item Value Reference Range Interpretation Comments PARTIAL THROMBOPLASTIN TIME 36.2 seconds 22.5-36.0 H (BEAKER) (test code = 760) [id number] 23:33:40 Test Item Value Reference Range Interpretation Comments PARTIAL THROMBOPLASTIN TIME 35.9 seconds 22.5-36.0 (BEAKER) (test code = 760) LIPID [id number] 23:31:17 Test Item Value Reference Range Interpretation [...] Borderline 130-159 High 160-189 Very High >=190 Golf Instructor ID - DANUTA MPLATELET [id number] 23:02:35 Test Item Value Reference Range Interpretation Comments PLATELET COUNT (BEAKER) (test 166 K/CU MM 150-450 code = 756) Golf Instructor ID - 6000HIGH SENSITIVITY TROPONIN [id number] 19:17:02 Test Item Value Reference Range Interpretation Comments HIGH SENSITIVITY 57 pg/ml See_Comment H [Automated message] TROPONIN I (test code = The system which 5749281) generated this result transmitted ref erence range: <=17. Th e reference range was not used to int erpret this result as normal/abnormal . Golf Instructor ID - DANUTA [place] BEEF TRIMMER STAT High Sensitivity Troponin-I results should be used in conjunction with other diagnostic information such as ECG, clinical observations and information, and patient symptoms to aid in the diagnosis of CT.HIGH SENSITIVITY TROPONIN [id number] 17:36:27 Test Item Value Reference Range Interpretation Comments HIGH SENSITIVITY 22 pg/ml See_Comment H [Automated message] TROPONIN I (test code = The system which 1608446) generated this result transmitted ref erence range: <=17. Th e reference range was not used to int erpret this result as normal/abnormal . Golf Instructor ID - DANUTA [place] BEEF TRIMMER STAT High Sensitivity Troponin-I results should be used in conjunction with other diagnostic information such as ECG, clinical observations and information, and patient symptoms to aid in the diagnosis of CT.COMPREHENSIVE METABOLIC [id number] 17:29:31 Test Item Value Reference Range Interpretation [...] not appl icable for dialysis patien ts Golf Instructor ID - DANUTA MCBC W/PLT COUNT & AUTO [id number] 17:18:57 Test Item Value Reference Range Interpretation [...] (test code = 2801) RAD, CHEST, 2 [id number] 16:44:00Reason for exam:->r/o ACS [facility] 1965 Sex: FFINAL REPORT INDICATION: r/o ACS COMPARISON: None TECHNIQUE: AP and lateral view ofthe chest. FINDINGS: Lungs and pleura: Clear lungs. No effusion.Heart and mediastinum: Normal heart size. Unremarkable mediastinal contours.Osseous structures: No acute abnormality.Other: None. IMPRESSION: No acute intrathoracic abnormality. Signed: Alyssia Nelsoneport Verified Date/Time: 05/14/2022 16:44:29 COMPREHENSIVE METABOLIC [id number] 05:15:00 Test Item Value Reference Range Interpretation [...] TOTAL (test code = ALKP) GLUCOSE BEDSIDE [id number] 19:48:00 Test Item Value Reference Range Interpretation Comments GLUCOSE BEDSIDE TESTING (test code = 98 mg/dL 70-110 N GLUBED) - XR SMALL [id number] 19:38:00 [facility] 1965 Sex: F Name: RO MAYNARD [facility] : 1965 Age/S: 56 / F [address] Unit #: [id number] Loc: Bari Archibald [address] Phys: Dawson Ramírez MD Acct: [id number] Dis Date: Status: ADM IN PHONE #:[phone] Exam Date: 2021 1900 FAX #: Reason: evaluate for Crohn's EXAMS: CPT: [id number] XR SMALL BOWEL 38605 Fluoro Time: 0 DAP (Gy m2): Air Kerma (mGy): Location of dictation: H 14 Small bowel follow-through: HISTORY: Right upper quadrant pain, evaluate for Crohn's disease. COMMENT: The dowel pin worker radiograph shows normal bowel gas pattern. No [...] PAGE 1 Signed Report Name: RO MAYNARD [facility] : 1965 Age/S: 56 / F [address] Unit #: [id number] Loc: [place] [address] Phys: Uriel Ramírez MD Acct: [id number] Dis Date: Status: ADM IN PHONE #: [phone] Exam Date: 2021 1900 FAX #: Reason: evaluate for Crohn's EXAMS: CPT: [id number] XR SMALL BOWEL 78190 Fluoro Time: 0 DAP (Gy m2): Air Kerma (mGy): (Continued) Technologist: Zainab Moran, RT(R)(CT)(MRI) Trnscb Date/Time: 2021 (1937) [place]C Orig Print D/T: S: 2021 (1941) PAGE 2 Signed ReportGLUCOSE BEDSIDE [id number] 17:05:00 Test Item Value Reference Range Interpretation Comments GLUCOSE BEDSIDE TESTING (test code 148 mg/dL 70-110 H = GLUBED) - HEPA IMAG INCL GB W [id number] 16:10:00 [facility] : 1965 Sex: F FAX: Jaiden Huff MD [phone] Camps: PM St: ADM FAX: Shawna Scott MD [phone] FAX: Dawson Hodge MD [phone] Name: RO MAYNARD : 1965 Age/S: 56/F [address] Unit #: [id number] Loc: [address] [place] [address] Phys: Dawson Ramírez MD Acct: [id number] Dis Date: Status: ADM IN PHONE #: [phone] Exam Date: 2021 0461 FAX #: Reason: RUQ pain EXAMS: CPT: [id number] HEPA IMAG INCL GB W PHA 26457 EXAMINATION: Nuclear medicine hepatobiliary scan with ejection fract ion determination INDICATION: RUQ pain COMPARISON: MRCP previous [...] MD Technologist: MANUEL Kevin Transcribed Date/Time/By: 2021 (7720) :[email or web address] Orig Print D/T: S: 2021 (9786) PAGE 1 Signed ReportGLUCOSE BEDSIDE [id number] 11:56:00 Test Item Value Reference Range Interpretation Comments GLUCOSE BEDSIDE TESTING (test code 131 mg/dL 70-110 H = GLUBED) CBC W/AUTO [id number] 06:20:00 Test Item Value Reference Range Interpretation [...] NT WITH AUTO DIFFERENTI AL. COMPREHENSIVE METABOLIC [id number] 04:48:00 Test Item Value Reference Range Interpretation [...] 45-117 N TOTAL (test code = ALKP) [id number] 04:48:00 Test Item Value Reference Range Interpretation Comments PHOSPHOROUS (test code = PHOS) 3.8 MG/DL 2.5-4.9 N [id number] 04:48:00 Test Item Value Reference Range Interpretation Comments MAGNESIUM (test code = MAG) 2.1 MG/DL 1.8-2.4 N COMPREHENSIVE METABOLIC [id number] 04:46:00 Test Item Value Reference Range Interpretation [...] TOTAL (test Unit/L 45-117 code = ALKP) [id number] 04:46:00 Test Item Value Reference Range Interpretation Comments PHOSPHOROUS (test code = PHOS) MG/DL 2.5-4.9 [id number] 04:46:00 Test Item Value Reference Range Interpretation Comments MAGNESIUM (test code = MAG) MG/DL 1.8-2.4 [id number] 04:46:00 Test Item Value Reference Range Interpretation [...] may dexter yby method. Completed by Nursing: [id number] 04:46:00 Test Item Value Reference Range Interpretation Comments ALCOHOL (test code = ALC) < 3 MG/DL 0-10 N Completed by Nursing: NOCBC W/AUTO [id number] 04:36:00 Test Item Value Reference Range Interpretation [...] DIFF/SCN CRITERIA MDIFF) DRUGS OF ABUSE SCREEN [id number] 21:43:00 Test Item Value Reference Range Interpretation [...] this result as normal/abnormal . 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 Right upper quadrant pain COMPARISON: None available TECHNIQUE: Coronal SSFSE, axial 2-D fiesta, axial SSFSE, coronal 3-D MRCP, MRCP 2-Dthick slab. FINDINGS: No gallstones or gallbladder wall thickening. No filling defects in the CBD tosuggest choledocholithiasis. CBD measures 7 mm diameter is [...] Jaiden Antunez MD; Shawna Escalante MD Technologist: Renee Mills RT(R)(CT) Transcribed Date/Time/By: 02/25/2021 (1904) :[email or web address] Orig Print D/T: S: 02/25/2021(1907) PAGE 1 Signed ReportCOVID 19 INHOUSE [id number] 16:22:00 Test Item Value Reference Range Interpretation Comments COVID 19 INHOUSE AG NEGATIVE Negative Per [facility] facturer, (test code = negative result s should [id number]) be treated aspr esumptive and, if inconsi [...] symptoms co nsistent with COVID-19. CBC W/AUTO [id number] 15:38:00 Test Item Value Reference Range Interpretation [...] WITH AUTO DIFFERENTIAL.NO PLT CLUMPS OBSERVED RBC [id number] 15:38:00 Test Item Value Reference Range Interpretation Comments PLATELET ESTIMATE (test ADEQUATE THOUSAND ADEQUATE code = PLTEST) PLATELET MORPHOLOGY (test NORMAL code = PLTMORPH) CBC W/AUTO [id number] 15:33:00 Test Item Value Reference Range Interpretation [...] code DIFF/SCN CRITERIA = MDIFF) CBC W/AUTO [id number] 15:33:00 Test Item Value Reference Range Interpretation [...] code DIFF/SCN CRITERIA = MDIFF) BASIC METABOLIC [id number] 14:26:00 Test Item Value Reference Range Interpretation [...] CA) 8.7 MG/DL 8.5-10.1 N HEPATIC FUNCTION [id number] 14:26:00 Test Item Value Reference Range Interpretation [...] 93 Unit/L 45-117 N code = ALKP) [id number] 14:26:00 Test Item Value Reference Range Interpretation Comments LIPASE (test code = LIP) 95 Unit/L 114-286 L UA RFLX MICR CULT IF [id number] 14:10:00 Test Item Value Reference Range Interpretation [...] UACULT) Indication for culture: RiskForSepsis-no [facility] W/AUTO [id number] 14:04:00 Test Item Value Reference Range Interpretation [...] (test code = DIFF/SCN CRITERIA MDIFF) CHEM [id number] 14:26:00 Test Item Value Reference Range Interpretation Comments AGAP (test code = AGAP) 6.7 10.0-20.0 [facility] [id number] 14:26:00 Test Item Value Reference Range Interpretation Comments eGFR (test code = eGFR) 86 [facility] [id number] 14:26:00 Test Item Value Reference Range Interpretation Comments Creatinine Lvl (test code = Creatinine 0.8 0.5-1.4 Lvl) [facility] [id number] 14:26:00 Test Item Value Reference Range Interpretation Comments Chloride Lvl (test code = Chloride Lvl) 104 95-109 [facility] [id number] 14:26:00 Test Item Value Reference Range Interpretation Comments Potassium Lvl (test code = Potassium 3.7 3.5-5.1 Lvl) [facility] [id number] 14:26:00 Test Item Value Reference Range Interpretation Comments Sodium Lvl (test code = Sodium Lvl) 136 135-145 [facility] [id number] 14:26:00 Test Item Value Reference Range Interpretation Comments Calcium Lvl (test code = Calcium Lvl) 9.7 8.5-10.5 [facility] CenterLjnkazkAFIQXNIUZO3906-45-96 14:26:00 Test Item Value Reference Range Interpretation Comments MCV (test code = MCV) 101.6 80.0-98.0 [facility] CenterOzjgjmmLKZUWZRADN9329-94-28 14:26:00 Test Item Value Reference Range Interpretation Comments MCH (test code = MCH) 35.5 pg 27.0-31.0 [facility] CenterFvkggupMYVESGBBSP0903-05-72 14:26:00 Test Item Value Reference Range Interpretation Comments Hgb (test code = Hgb) 13.3 12.0-16.0 [facility] C[id number] 14:26:00 Test Item Value Reference Range Interpretation Comments Hct (test code = Hct) 37.9 36.0-48.0 [facility] CenterCvgomvbJFKAOXZOXW5593-87-30 14:26:00 Test Item Value Reference Range Interpretation Comments RBC (test code = RBC) 3.73 4.20-5.40 [facility] CenterTkfbnqzHSLZFBUSRE1523-70-47 14:26:00 Test Item Value Reference Range Interpretation Comments WBC (test code = WBC) 6.1 3.7-10.4 [facility] CenterOwpstsvFKQAWNKIYP1914-17-44 14:26:00 Test Item Value Reference Range Interpretation Comments MPV (test code = MPV) 8.0 7.4-10.4 [facility] CenterOkjcermBQZWAAWMYI5126-39-26 14:26:00 Test Item Value Reference Range Interpretation Comments RDW (test code = RDW) 17.2 11.5-14.5 [facility] CenterSodgtirXVXNHAPUFP7009-49-23 14:26:00 Test Item Value Reference Range Interpretation Comments Platelet (test code = Platelet) 223 133-450 [facility] CenterUmqalnuSNFNZOZMKZ7098-41-57 14:26:00 Test Item Value Reference Range Interpretation Comments MCHC (test code = MCHC) 35.0 32.0-36.0 [facility] CenterHuegvrsHLZDIFNUSF4421-53-16 14:26:00 Test Item Value Reference Range Interpretation Comments INR (test code = INR) 0.93 0.85-1.17 [facility] CenterJbqlndlOUVTPTMYNG7198-77-48 14:26:00 Test Item Value Reference Range Interpretation Comments PT (test code = PT) 12.4 s 12.0-14.7 [facility]2014-09-22 14:26:00 Test Item Value Reference Range Interpretation Comments BUN (test code = BUN) 8 7-22 [facility]2014-09-22 14:26:00 Test Item Value Reference Range Interpretation Comments Glucose Lvl (test code = Glucose Lvl) 91 70-99 [facility]2014-09-22 14:26:00 Test Item Value Reference Range Interpretation Comments CO2 (test code = CO2) 29 24-32 [facility]2014-09-22 14:26:00 Test Item Value Reference Range Interpretation Comments AGAP (test code = AGAP) 6.7 10.0-20.0 [facility]2014-09-22 14:26:00 Test Item Value Reference Range Interpretation Comments eGFR (test code = eGFR) 86 [facility]2014-09-22 14:26:00 Test Item Value Reference Range Interpretation Comments Creatinine Lvl (test code = Creatinine 0.8 0.5-1.4 Lvl) [facility]2014-09-22 14:26:00 Test Item Value Reference Range Interpretation Comments Chloride Lvl (test code = Chloride Lvl) 104 95-109 [facility]2014-09-22 14:26:00 Test Item Value Reference Range Interpretation Comments Potassium Lvl (test code = Potassium 3.7 3.5-5.1 Lvl) [facility]2014-09-22 14:26:00 Test Item Value Reference Range Interpretation Comments Sodium Lvl (test code = Sodium Lvl) 136 135-145 [facility]2014-09-22 14:26:00 Test Item Value Reference Range Interpretation Comments Calcium Lvl (test code = Calcium Lvl) 9.7 8.5-10.5 [facility] CenterQmjqafgXGCOTRAOSP4373-33-00 14:26:00 Test Item Value Reference Range Interpretation Comments MCV (test code = MCV) 101.6 80.0-98.0 [facility] CenterTxsdbctTZEJNDJTZQ5615-39-51 14:26:00 Test Item Value Reference Range Interpretation Comments MCH (test code = MCH) 35.5 pg 27.0-31.0 [facility] CenterKaxxsttVMWYXYJHZW4903-55-81 14:26:00 Test Item Value Reference Range Interpretation Comments Hgb (test code = Hgb) 13.3 12.0-16.0 [facility] CenterNorrnogKZXUENMGDL9767-86-92 14:26:00 Test Item Value Reference Range Interpretation Comments Hct (test code = Hct) 37.9 36.0-48.0 [facility] CenterPxqongtFHSLUVSWKZ9808-22-61 14:26:00 Test Item Value Reference Range Interpretation Comments RBC (test code = RBC) 3.73 4.20-5.40 [facility] CenterVuismlsIJOXGCQWAH0054-43-77 14:26:00 Test Item Value Reference Range Interpretation Comments WBC (test code = WBC) 6.1 3.7-10.4 [facility] CenterDuteasfJNMDGRDCFX8602-29-07 14:26:00 Test Item Value Reference Range Interpretation Comments MPV (test code = MPV) 8.0 7.4-10.4 [facility] CenterZuorgkmNGSRCYSXLE2654-67-64 14:26:00 Test Item Value Reference Range Interpretation Comments RDW (test code = RDW) 17.2 11.5-14.5 [facility] CenterVabbrgjVBJORDZKUR8226-12-35 14:26:00 Test Item Value Reference Range Interpretation Comments Platelet (test code = Platelet) 223 133-450 [facility] CenterYlynakiBXOWQWTQLZ9043-91-62 14:26:00 Test Item Value Reference Range Interpretation Comments MCHC (test code = MCHC) 35.0 32.0-36.0 [facility] CenterWsupdldOLQTZPXWPV8229-76-15 14:26:00 Test Item Value Reference Range Interpretation Comments INR (test code = INR) 0.93 0.85-1.17 [facility] CenterBxtdnyfKBSZGBQNPL0639-63-10 14:26:00 Test Item Value Reference Range Interpretation Comments PT (test code = PT) 12.4 s 12.0-14.7 [facility]2014-09-22 14:26:00 Test Item Value Reference Range Interpretation Comments BUN (test code = BUN) 8 7-22 [facility]2014-09-22 14:26:00 Test Item Value Reference Range Interpretation Comments Glucose Lvl (test code = Glucose Lvl) 91 70-99 [facility]2014-09-22 14:26:00 Test Item Value Reference Range Interpretation Comments CO2 (test code = CO2) 29 24-32 [facility]2014-09-22 14:26:00 Test Item Value Reference Range Interpretation Comments AGAP (test code = AGAP) 6.7 10.0-20.0 [facility]2014-09-22 14:26:00 Test Item Value Reference Range Interpretation Comments eGFR (test code = eGFR) 86 [facility]2014-09-22 14:26:00 Test Item Value Reference Range Interpretation Comments Creatinine Lvl (test code = Creatinine 0.8 0.5-1.4 Lvl) [facility]2014-09-22 14:26:00 Test Item Value Reference Range Interpretation Comments Chloride Lvl (test code = Chloride Lvl) 104 95-109 [facility]2014-09-22 14:26:00 Test Item Value Reference Range Interpretation Comments Potassium Lvl (test code = Potassium 3.7 3.5-5.1 Lvl) [facility]2014-09-22 14:26:00 Test Item Value Reference Range Interpretation Comments Sodium Lvl (test code = Sodium Lvl) 136 135-145 [facility]2014-09-22 14:26:00 Test Item Value Reference Range Interpretation Comments Calcium Lvl (test code = Calcium Lvl) 9.7 8.5-10.5 [facility] CenterSzhyfqbKEQANFVEDO3312-62-09 14:26:00 Test Item Value Reference Range Interpretation Comments MCV (test code = MCV) 101.6 80.0-98.0 [facility] CenterZpylbhtXDFTNTFMZP4616-77-43 14:26:00 Test Item Value Reference Range Interpretation Comments MCH (test code = MCH) 35.5 pg 27.0-31.0 [facility] CenterNmntjghCMGPIFDTVN6015-37-23 14:26:00 Test Item Value Reference Range Interpretation Comments Hgb (test code = Hgb) 13.3 12.0-16.0 [place] [address]-09-22 14:26:00 Test Item Value Reference Range Interpretation Comments Hct (test code = Hct) 37.9 36.0-48.0 [facility] CenterYygzxvsHRCWUCEQYF8456-34-39 14:26:00 Test Item Value Reference Range Interpretation Comments RBC (test code = RBC) 3.73 4.20-5.40 [place] 694914-09-22 14:26:00 Test Item Value Reference Range Interpretation Comments WBC (test code = WBC) 6.1 3.7-10.4 [facility] CenterJvixnrnVHXHBGTNEI3815-25-70 14:26:00 Test Item Value Reference Range Interpretation Comments MPV (test code = MPV) 8.0 7.4-10.4 [facility] CenterZuqlxtoOJGNMTGIIT6101-82-83 14:26:00 Test Item Value Reference Range Interpretation Comments RDW (test code = RDW) 17.2 11.5-14.5 [facility] CenterQykvhufQAEWXCHPBH9723-78-26 14:26:00 Test Item Value Reference Range Interpretation Comments Platelet (test code = Platelet) 223 133-450 [facility] CenterVtrpakmAAPPNQIKWH2080-02-41 14:26:00 Test Item Value Reference Range Interpretation Comments MCHC (test code = MCHC) 35.0 32.0-36.0 [facility] CenterWxpqlbsGJZHQNXIST7717-93-03 14:26:00 Test Item Value Reference Range Interpretation Comments INR (test code = INR) 0.93 0.85-1.17 [facility] CenterDawtvpbFIQJSZKXXC2367-56-20 14:26:00 Test Item Value Reference Range Interpretation Comments PT (test code = PT) 12.4 s 12.0-14.7 [facility]2014-09-22 14:26:00 Test Item Value Reference Range Interpretation Comments BUN (test code = BUN) 8 7-22 [facility]2014-09-22 14:26:00 Test Item Value Reference Range Interpretation Comments Glucose Lvl (test code = Glucose Lvl) 91 70-99 [facility]2014-09-22 14:26:00 Test Item Value Reference Range Interpretation Comments CO2 (test code = CO2) 29 24-32 [facility]2014-09-22 14:26:00 Test Item Value Reference Range Interpretation Comments AGAP (test code = AGAP) 6.7 10.0-20.0 [facility]2014-09-22 14:26:00 Test Item Value Reference Range Interpretation Comments eGFR (test code = eGFR) 86 [facility]2014-09-22 14:26:00 Test Item Value Reference Range Interpretation Comments Creatinine Lvl (test code = Creatinine 0.8 0.5-1.4 Lvl) [facility]2014-09-22 14:26:00 Test Item Value Reference Range Interpretation Comments Chloride Lvl (test code = Chloride Lvl) 104 95-109 [facility]2014-09-22 14:26:00 Test Item Value Reference Range Interpretation Comments Potassium Lvl (test code = Potassium 3.7 3.5-5.1 Lvl) [facility]2014-09-22 14:26:00 Test Item Value Reference Range Interpretation Comments Sodium Lvl (test code = Sodium Lvl) 136 135-145 [facility]2014-09-22 14:26:00 Test Item Value Reference Range Interpretation Comments Calcium Lvl (test code = Calcium Lvl) 9.7 8.5-10.5 [facility] CenterQgxualxRVQTBZDXSM1099-24-77 14:26:00 Test Item Value Reference Range Interpretation Comments MCV (test code = MCV) 101.6 80.0-98.0 [facility] CenterOitkvdtREJARVIEBF4641-90-73 14:26:00 Test Item Value Reference Range Interpretation Comments MCH (test code = MCH) 35.5 pg 27.0-31.0 [facility] CenterByepkmtYNQLKOWPDA2252-02-82 14:26:00 Test Item Value Reference Range Interpretation Comments Hgb (test code = Hgb) 13.3 12.0-16.0 [facility] CenterRryltfdXYSLGVSOZN6057-09-38 14:26:00 Test Item Value Reference Range Interpretation Comments Hct (test code = Hct) 37.9 36.0-48.0 [facility] CenterXrvxrndBTJRXZKPYR3214-11-04 14:26:00 Test Item Value Reference Range Interpretation Comments RBC (test code = RBC) 3.73 4.20-5.40 [facility] CenterQecgganNSWSCSSRSI0184-73-71 14:26:00 Test Item Value Reference Range Interpretation Comments WBC (test code = WBC) 6.1 3.7-10.4 [facility] CenterKmpmwpwOBKHYDWGJY6878-72-22 14:26:00 Test Item Value Reference Range Interpretation Comments MPV (test code = MPV) 8.0 7.4-10.4 [facility] CenterXxkvngxAMLXSDHLCZ7295-10-22 14:26:00 Test Item Value Reference Range Interpretation Comments RDW (test code = RDW) 17.2 11.5-14.5 [facility] CenterLqsqlqpPQEHCGIHWW0350-55-96 14:26:00 Test Item Value Reference Range Interpretation Comments Platelet (test code = Platelet) 223 133-450 [facility] CenterIbcqxvkRFAOLUUNWR6062-13-72 14:26:00 Test Item Value Reference Range Interpretation Comments MCHC (test code = MCHC) 35.0 32.0-36.0 [facility] CenterQupajhxFDTHTGURFP8158-37-27 14:26:00 Test Item Value Reference Range Interpretation Comments INR (test code = INR) 0.93 0.85-1.17 [facility] CenterAqimurvKYCNBSOCDC6697-13-14 14:26:00 Test Item Value Reference Range Interpretation Comments PT (test code = PT) 12.4 s 12.0-14.7 [facility]2014-09-22 14:26:00 Test Item Value Reference Range Interpretation Comments BUN (test code = BUN) 8 - [facility]2014-09-22 14:26:00 Test Item Value Reference Range Interpretation Comments Glucose Lvl (test code = Glucose Lvl) 91 70-99 [facility]2014-09-22 14:26:00 Test Item Value Reference Range Interpretation Comments CO2 (test code = CO2) 29 24-32 [facility]2014-09-22 14:26:00 Test Item Value Reference Range Interpretation Comments AGAP (test code = AGAP) 6.7 10.0-20.0 [facility]2014-09-22 14:26:00 Test Item Value Reference Range Interpretation Comments eGFR (test code = eGFR) 86 [facility]2014-09-22 14:26:00 Test Item Value Reference Range Interpretation Comments Creatinine Lvl (test code = Creatinine 0.8 0.5-1.4 Lvl) [facility]2014-09-22 14:26:00 Test Item Value Reference Range Interpretation Comments Chloride Lvl (test code = Chloride Lvl) 104 95-109 [facility]2014-09-22 14:26:00 Test Item Value Reference Range Interpretation Comments Potassium Lvl (test code = Potassium 3.7 3.5-5.1 Lvl) [facility]2014-09-22 14:26:00 Test Item Value Reference Range Interpretation Comments Sodium Lvl (test code = Sodium Lvl) 136 135-145 [facility]2014-09-22 14:26:00 Test Item Value Reference Range Interpretation Comments Calcium Lvl (test code = Calcium Lvl) 9.7 8.5-10.5 [facility] CenterCrljgfxSPEOEPBSXT4881-37-59 14:26:00 Test Item Value Reference Range Interpretation Comments MCV (test code = MCV) 101.6 80.0-98.0 [facility] CenterQcvcdfiTOPLLDJEEZ1530-92-79 14:26:00 Test Item Value Reference Range Interpretation Comments MCH (test code = MCH) 35.5 pg 27.0-31.0 [facility] CenterBvojrrkDAVBEYQFEX6973-38-97 14:26:00 Test Item Value Reference Range Interpretation Comments Hgb (test code = Hgb) 13.3 12.0-16.0 [facility] CenterEeplybkEQAWOVNKNW2620-12-53 14:26:00 Test Item Value Reference Range Interpretation Comments Hct (test code = Hct) 37.9 36.0-48.0 [facility] CenterElilrkmRXNAKZPYYS1823-11-37 14:26:00 Test Item Value Reference Range Interpretation Comments RBC (test code = RBC) 3.73 4.20-5.40 [facility] CenterWjlyfvgHZQWQTKWQN6003-11-00 14:26:00 Test Item Value Reference Range Interpretation Comments WBC (test code = WBC) 6.1 3.7-10.4 [facility] CenterIpxbvwePYJOMJQOTJ2645-83-23 14:26:00 Test Item Value Reference Range Interpretation Comments MPV (test code = MPV) 8.0 7.4-10.4 [facility] CenterWwzvypeTFWMABWBXE4079-71-70 14:26:00 Test Item Value Reference Range Interpretation Comments RDW (test code = RDW) 17.2 11.5-14.5 [facility] CenterLcigtouTRQSWBGXSN4851-58-13 14:26:00 Test Item Value Reference Range Interpretation Comments Platelet (test code = Platelet) 223 133-450 [facility] CenterOuqjtcuHDWHOJPPJQ8238-42-04 14:26:00 Test Item Value Reference Range Interpretation Comments MCHC (test code = MCHC) 35.0 32.0-36.0 [facility] CenterEanglpkCNOFJGMYTY1430-22-71 14:26:00 Test Item Value Reference Range Interpretation Comments INR (test code = INR) 0.93 0.85-1.17 [facility] CenterUlisaxgCGHBTAPSWS7601-05-42 14:26:00 Test Item Value Reference Range Interpretation Comments PT (test code = PT) 12.4 s 12.0-14.7 [facility]2014-09-22 14:26:00 Test Item Value Reference Range Interpretation Comments BUN (test code = BUN) 8 7-22 [facility]2014-09-22 14:26:00 Test Item Value Reference Range Interpretation Comments Glucose Lvl (test code = Glucose Lvl) 91 70-99 [facility]2014-09-22 14:26:00 Test Item Value Reference Range Interpretation Comments CO2 (test code = CO2) 29 24-32 [facility]2014-09-22 14:26:00 Test Item Value Reference Range Interpretation Comments AGAP (test code = AGAP) 6.7 10.0-20.0 [facility]2014-09-22 14:26:00 Test Item Value Reference Range Interpretation Comments eGFR (test code = eGFR) 86 [facility]2014-09-22 14:26:00 Test Item Value Reference Range Interpretation Comments Creatinine Lvl (test code = Creatinine 0.8 0.5-1.4 Lvl) [facility]2014-09-22 14:26:00 Test Item Value Reference Range Interpretation Comments Chloride Lvl (test code = Chloride Lvl) 104 95-109 [facility]2014-09-22 14:26:00 Test Item Value Reference Range Interpretation Comments Potassium Lvl (test code = Potassium 3.7 3.5-5.1 Lvl) [facility]2014-09-22 14:26:00 Test Item Value Reference Range Interpretation Comments Sodium Lvl (test code = Sodium Lvl) 136 135-145 [facility]2014-09-22 14:26:00 Test Item Value Reference Range Interpretation Comments Calcium Lvl (test code = Calcium Lvl) 9.7 8.5-10.5 [facility] CenterCxnhlmrKLIEFASBCB8027-89-08 14:26:00 Test Item Value Reference Range Interpretation Comments MCV (test code = MCV) 101.6 80.0-98.0 [facility] CenterBesfcukOZOHQRSABP2291-66-95 14:26:00 Test Item Value Reference Range Interpretation Comments MCH (test code = MCH) 35.5 pg 27.0-31.0 [facility] CenterEasuolcQFSFSAOZFJ9185-85-16 14:26:00 Test Item Value Reference Range Interpretation Comments Hgb (test code = Hgb) 13.3 12.0-16.0 [place] 694914-09-22 14:26:00 Test Item Value Reference Range Interpretation Comments Hct (test code = Hct) 37.9 36.0-48.0 [facility] CenterDkpyvrqNVMQISSCSU7212-41-49 14:26:00 Test Item Value Reference Range Interpretation Comments RBC (test code = RBC) 3.73 4.20-5.40 [facility] CenterXtffdvzDPRPMZWFJC0139-96-27 14:26:00 Test Item Value Reference Range Interpretation Comments WBC (test code = WBC) 6.1 3.7-10.4 [facility] CenterDyajfwiUSVVZVBTOG8185-99-21 14:26:00 Test Item Value Reference Range Interpretation Comments MPV (test code = MPV) 8.0 7.4-10.4 [facility] CenterMjywkfsOWBECEFJVU9555-66-70 14:26:00 Test Item Value Reference Range Interpretation Comments RDW (test code = RDW) 17.2 11.5-14.5 [facility] CenterLrutgyhMJIFSWXGGZ4662-81-71 14:26:00 Test Item Value Reference Range Interpretation Comments Platelet (test code = Platelet) 223 133-450 [facility] CenterBrdyajsQHDKUMDPAY7669-66-24 14:26:00 Test Item Value Reference Range Interpretation Comments MCHC (test code = MCHC) 35.0 32.0-36.0 [facility] CenterStrcxwaTXOVUFCMJW8469-99-85 14:26:00 Test Item Value Reference Range Interpretation Comments INR (test code = INR) 0.93 0.85-1.17 [facility] CenterWsbcqggDGAFKZAUBA8925-29-35 14:26:00 Test Item Value Reference Range Interpretation Comments PT (test code = PT) 12.4 s 12.0-14.7 [facility]2014-09-22 14:26:00 Test Item Value Reference Range Interpretation Comments BUN (test code = BUN) 8 7-22 [facility]2014-09-22 14:26:00 Test Item Value Reference Range Interpretation Comments Glucose Lvl (test code = Glucose Lvl) 91 70-99 [facility]2014-09-22 14:26:00 Test Item Value Reference Range Interpretation Comments CO2 (test code = CO2) 29 24-32 [facility]2014-09-22 14:26:00 Test Item Value Reference Range Interpretation Comments AGAP (test code = AGAP) 6.7 10.0-20.0 [facility]2014-09-22 14:26:00 Test Item Value Reference Range Interpretation Comments eGFR (test code = eGFR) 86 [facility]2014-09-22 14:26:00 Test Item Value Reference Range Interpretation Comments Creatinine Lvl (test code = Creatinine 0.8 0.5-1.4 Lvl) [facility]2014-09-22 14:26:00 Test Item Value Reference Range Interpretation Comments Chloride Lvl (test code = Chloride Lvl) 104 95-109 [facility]2014-09-22 14:26:00 Test Item Value Reference Range Interpretation Comments Potassium Lvl (test code = Potassium 3.7 3.5-5.1 Lvl) [facility]2014-09-22 14:26:00 Test Item Value Reference Range Interpretation Comments Sodium Lvl (test code = Sodium Lvl) 136 135-145 [facility]2014-09-22 14:26:00 Test Item Value Reference Range Interpretation Comments Calcium Lvl (test code = Calcium Lvl) 9.7 8.5-10.5 [place] 694914-09-22 14:26:00 Test Item Value Reference Range Interpretation Comments MCV (test code = MCV) 101.6 80.0-98.0 [facility] CenterQofstebJKILBYGHRL6371-35-39 14:26:00 Test Item Value Reference Range Interpretation Comments MCH (test code = MCH) 35.5 pg 27.0-31.0 [facility] CenterEvdztwnTEKOSFIJEY6794-65-60 14:26:00 Test Item Value Reference Range Interpretation Comments Hgb (test code = Hgb) 13.3 12.0-16.0 [facility] CenterIkusbiiWKIYUSEJXS3903-84-80 14:26:00 Test Item Value Reference Range Interpretation Comments Hct (test code = Hct) 37.9 36.0-48.0 [facility] CenterSthhsdbSXYRZQOJHR3451-62-02 14:26:00 Test Item Value Reference Range Interpretation Comments RBC (test code = RBC) 3.73 4.20-5.40 [facility] CenterHgcivwvTDSNLOXVIB4843-42-67 14:26:00 Test Item Value Reference Range Interpretation Comments WBC (test code = WBC) 6.1 3.7-10.4 [place] 694914-09-22 14:26:00 Test Item Value Reference Range Interpretation Comments MPV (test code = MPV) 8.0 7.4-10.4 [facility] CenterLgdchjiQZKZLXWTRD3988-12-18 14:26:00 Test Item Value Reference Range Interpretation Comments RDW (test code = RDW) 17.2 11.5-14.5 [facility] CenterJgeiswyUMLSJPJWBQ9705-56-62 14:26:00 Test Item Value Reference Range Interpretation Comments Platelet (test code = Platelet) 223 133-450 [facility] CenterXbtluapINYPZXTFIQ7775-88-91 14:26:00 Test Item Value Reference Range Interpretation Comments MCHC (test code = MCHC) 35.0 32.0-36.0 [facility] CenterJdpuxpjBMAOYKBIWA9978-45-08 14:26:00 Test Item Value Reference Range Interpretation Comments INR (test code = INR) 0.93 0.85-1.17 [facility] CenterKjbyefqAEXOABLFLT2085-61-30 14:26:00 Test Item Value Reference Range Interpretation Comments PT (test code = PT) 12.4 s 12.0-14.7 [facility]2014-09-22 14:26:00 Test Item Value Reference Range Interpretation Comments BUN (test code = BUN) 8 7-22 [facility]2014-09-22 14:26:00 Test Item Value Reference Range Interpretation Comments Glucose Lvl (test code = Glucose Lvl) 91 70-99 [facility]2014-09-22 14:26:00 Test Item Value Reference Range Interpretation Comments CO2 (test code = CO2) 29 24-32 [facility]2014-09-22 14:26:00 Test Item Value Reference Range Interpretation Comments AGAP (test code = AGAP) 6.7 10.0-20.0 [facility]2014-09-22 14:26:00 Test Item Value Reference Range Interpretation Comments eGFR (test code = eGFR) 86 [facility]2014-09-22 14:26:00 Test Item Value Reference Range Interpretation Comments Creatinine Lvl (test code = Creatinine 0.8 0.5-1.4 Lvl) [facility]2014-09-22 14:26:00 Test Item Value Reference Range Interpretation Comments Chloride Lvl (test code = Chloride Lvl) 104 95-109 [facility]2014-09-22 14:26:00 Test Item Value Reference Range Interpretation Comments Potassium Lvl (test code = Potassium 3.7 3.5-5.1 Lvl) [facility]2014-09-22 14:26:00 Test Item Value Reference Range Interpretation Comments Sodium Lvl (test code = Sodium Lvl) 136 135-145 [facility]2014-09-22 14:26:00 Test Item Value Reference Range Interpretation Comments Calcium Lvl (test code = Calcium Lvl) 9.7 8.5-10.5 [facility] CenterKsosiiqPVIBGLZIBP1743-47-07 14:26:00 Test Item Value Reference Range Interpretation Comments MCV (test code = MCV) 101.6 80.0-98.0 [facility] CenterQvtcpntTRYNXXMCBP3117-16-52 14:26:00 Test Item Value Reference Range Interpretation Comments MCH (test code = MCH) 35.5 pg 27.0-31.0 [facility] CenterUgbevjdLOYDJJFJSQ0794-48-92 14:26:00 Test Item Value Reference Range Interpretation Comments Hgb (test code = Hgb) 13.3 12.0-16.0 [facility] CenterTnsvgicJIBISNFWHA1271-11-12 14:26:00 Test Item Value Reference Range Interpretation Comments Hct (test code = Hct) 37.9 36.0-48.0 [facility] CenterTyeghqaXXSJBUPVAP1754-05-62 14:26:00 Test Item Value Reference Range Interpretation Comments RBC (test code = RBC) 3.73 4.20-5.40 [facility] CenterKjgqeusIRBMSDJXLC5090-15-22 14:26:00 Test Item Value Reference Range Interpretation Comments WBC (test code = WBC) 6.1 3.7-10.4 [facility] CenterGregwfpUDDCCSHCUJ2355-36-57 14:26:00 Test Item Value Reference Range Interpretation Comments MPV (test code = MPV) 8.0 7.4-10.4 [facility] CenterYjxmrruLTNMUEAWAX0929-34-90 14:26:00 Test Item Value Reference Range Interpretation Comments RDW (test code = RDW) 17.2 11.5-14.5 [facility] CenterGunxdbhYXLIGSIPXJ0628-36-57 14:26:00 Test Item Value Reference Range Interpretation Comments Platelet (test code = Platelet) 223 133-450 [facility] CenterTbrcwewQRKQMSARCT0778-39-73 14:26:00 Test Item Value Reference Range Interpretation Comments MCHC (test code = MCHC) 35.0 32.0-36.0 [facility] CenterGlnkbutZMRKROZJEV7175-01-31 14:26:00 Test Item Value Reference Range Interpretation Comments INR (test code = INR) 0.93 0.85-1.17 [facility] CenterTozxuqmHKJSDSHSFV7891-55-27 14:26:00 Test Item Value Reference Range Interpretation Comments PT (test code = PT) 12.4 s 12.0-14.7 [facility]2014-09-22 14:26:00 Test Item Value Reference Range Interpretation Comments BUN (test code = BUN) 8 - [facility]2014-09-22 14:26:00 Test Item Value Reference Range Interpretation Comments Glucose Lvl (test code = Glucose Lvl) 91 70-99 [facility]2014-09-22 14:26:00 Test Item Value Reference Range Interpretation Comments CO2 (test code = CO2) 29 24-32 [facility]2014-09-22 14:26:00 Test Item Value Reference Range Interpretation Comments AGAP (test code = AGAP) 6.7 10.0-20.0 [facility]2014-09-22 14:26:00 Test Item Value Reference Range Interpretation Comments eGFR (test code = eGFR) 86 [facility]2014-09-22 14:26:00 Test Item Value Reference Range Interpretation Comments Creatinine Lvl (test code = Creatinine 0.8 0.5-1.4 Lvl) [facility]2014-09-22 14:26:00 Test Item Value Reference Range Interpretation Comments Chloride Lvl (test code = Chloride Lvl) 104 95-109 [facility]2014-09-22 14:26:00 Test Item Value Reference Range Interpretation Comments Potassium Lvl (test code = Potassium 3.7 3.5-5.1 Lvl) [facility]2014-09-22 14:26:00 Test Item Value Reference Range Interpretation Comments Sodium Lvl (test code = Sodium Lvl) 136 135-145 [facility]2014-09-22 14:26:00 Test Item Value Reference Range Interpretation Comments Calcium Lvl (test code = Calcium Lvl) 9.7 8.5-10.5 [facility] CenterOtppxggCZPVWPGVUR0741-01-65 14:26:00 Test Item Value Reference Range Interpretation Comments MCV (test code = MCV) 101.6 80.0-98.0 [facility] CenterJdnegcgPEGTHHFATJ7258-90-06 14:26:00 Test Item Value Reference Range Interpretation Comments MCH (test code = MCH) 35.5 pg 27.0-31.0 [facility] CenterYynxldnZZTCLEFSVP0335-62-39 14:26:00 Test Item Value Reference Range Interpretation Comments Hgb (test code = Hgb) 13.3 12.0-16.0 [facility] CenterKipzpgjUBHKBMXTDG6931-71-43 14:26:00 Test Item Value Reference Range Interpretation Comments Hct (test code = Hct) 37.9 36.0-48.0 [facility] CenterOyerkyiRWKMYKLXCX6461-66-02 14:26:00 Test Item Value Reference Range Interpretation Comments RBC (test code = RBC) 3.73 4.20-5.40 [facility] CenterWrsooeiBLAPIMNFXD6496-45-62 14:26:00 Test Item Value Reference Range Interpretation Comments WBC (test code = WBC) 6.1 3.7-10.4 [facility] CenterSvejvhfEETJJHISGD4243-36-10 14:26:00 Test Item Value Reference Range Interpretation Comments MPV (test code = MPV) 8.0 7.4-10.4 [facility] CenterFntlrdmMVCYOCYYST7949-09-55 14:26:00 Test Item Value Reference Range Interpretation Comments RDW (test code = RDW) 17.2 11.5-14.5 [facility] CenterKjukbqqMKMKSGNXHD8008-63-98 14:26:00 Test Item Value Reference Range Interpretation Comments Platelet (test code = Platelet) 223 133-450 [facility] CenterVdkabikVRWNRHNUXJ0445-37-09 14:26:00 Test Item Value Reference Range Interpretation Comments MCHC (test code = MCHC) 35.0 32.0-36.0 [facility] CenterTgchiyuYNBSRZWJFR7740-34-23 14:26:00 Test Item Value Reference Range Interpretation Comments INR (test code = INR) 0.93 0.85-1.17 [facility] CenterJczhxavOTMMKHBTPZ1131-83-54 14:26:00 Test Item Value Reference Range Interpretation Comments PT (test code = PT) 12.4 s 12.0-14.7 [facility]2014-09-22 14:26:00 Test Item Value Reference Range Interpretation Comments BUN (test code = BUN) 8 7-22 [facility]2014-09-22 14:26:00 Test Item Value Reference Range Interpretation Comments Glucose Lvl (test code = Glucose Lvl) 91 70-99 [facility]2014-09-22 14:26:00 Test Item Value Reference Range Interpretation Comments CO2 (test code = CO2) 29 24-32 [facility]2014-09-22 14:26:00 Test Item Value Reference Range Interpretation Comments AGAP (test code = AGAP) 6.7 10.0-20.0 [facility]2014-09-22 14:26:00 Test Item Value Reference Range Interpretation Comments eGFR (test code = eGFR) 86 [facility]2014-09-22 14:26:00 Test Item Value Reference Range Interpretation Comments Creatinine Lvl (test code = Creatinine 0.8 0.5-1.4 Lvl) [facility]2014-09-22 14:26:00 Test Item Value Reference Range Interpretation Comments Chloride Lvl (test code = Chloride Lvl) 104 95-109 [facility]2014-09-22 14:26:00 Test Item Value Reference Range Interpretation Comments Potassium Lvl (test code = Potassium 3.7 3.5-5.1 Lvl) [facility]2014-09-22 14:26:00 Test Item Value Reference Range Interpretation Comments Sodium Lvl (test code = Sodium Lvl) 136 135-145 [facility]2014-09-22 14:26:00 Test Item Value Reference Range Interpretation Comments Calcium Lvl (test code = Calcium Lvl) 9.7 8.5-10.5 [facility] CenterMdysmdyJJPCDPYKDK5122-96-22 14:26:00 Test Item Value Reference Range Interpretation Comments MCV (test code = MCV) 101.6 80.0-98.0 [facility] CenterXnjnhelJSHZRFHMKH6121-96-54 14:26:00 Test Item Value Reference Range Interpretation Comments MCH (test code = MCH) 35.5 pg 27.0-31.0 [facility] CenterDkrycfcKJPWPWDKIL6247-18-44 14:26:00 Test Item Value Reference Range Interpretation Comments Hgb (test code = Hgb) 13.3 12.0-16.0 [facility] CenterGunqngkEGSSHIHGVY9074-59-71 14:26:00 Test Item Value Reference Range Interpretation Comments Hct (test code = Hct) 37.9 36.0-48.0 [facility] CenterJgezkjnYEGQNRGAWI0265-55-12 14:26:00 Test Item Value Reference Range Interpretation Comments RBC (test code = RBC) 3.73 4.20-5.40 [facility] CenterKsgndwrAXIXUCBNUA4900-08-01 14:26:00 Test Item Value Reference Range Interpretation Comments WBC (test code = WBC) 6.1 3.7-10.4 [facility] CenterQplepxbBAISVGEVZO9255-05-68 14:26:00 Test Item Value Reference Range Interpretation Comments MPV (test code = MPV) 8.0 7.4-10.4 [facility] CenterCbwptidOPBDBWEDJD5673-94-35 14:26:00 Test Item Value Reference Range Interpretation Comments RDW (test code = RDW) 17.2 11.5-14.5 [facility] CenterLtnzxipWLFXBDODHN7978-63-25 14:26:00 Test Item Value Reference Range Interpretation Comments Platelet (test code = Platelet) 223 133-450 [facility] CenterSlndpkwYUERQYMDUQ9702-04-01 14:26:00 Test Item Value Reference Range Interpretation Comments MCHC (test code = MCHC) 35.0 32.0-36.0 [facility] CenterYpfmsvxTGSVBKGEXF3828-18-55 14:26:00 Test Item Value Reference Range Interpretation Comments INR (test code = INR) 0.93 0.85-1.17 [facility] CenterUanrrztVWUDEYLPHF1357-66-45 14:26:00 Test Item Value Reference Range Interpretation Comments PT (test code = PT) 12.4 s 12.0-14.7 [facility]2014-09-22 14:26:00 Test Item Value Reference Range Interpretation Comments BUN (test code = BUN) 8 7-22 [facility]2014-09-22 14:26:00 Test Item Value Reference Range Interpretation Comments Glucose Lvl (test code = Glucose Lvl) 91 70-99 [facility]2014-09-22 14:26:00 Test Item Value Reference Range Interpretation Comments CO2 (test code = CO2) 29 24-32 [facility]2014-09-22 14:26:00 Test Item Value Reference Range Interpretation Comments AGAP (test code = AGAP) 6.7 10.0-20.0 [place] 290354-09-22 14:26:00 Test Item Value Reference Range Interpretation Comments eGFR (test code = eGFR) 86 [facility]2014-09-22 14:26:00 Test Item Value Reference Range Interpretation Comments Creatinine Lvl (test code = Creatinine 0.8 0.5-1.4 Lvl) [facility]2014-09-22 14:26:00 Test Item Value Reference Range Interpretation Comments Chloride Lvl (test code = Chloride Lvl) 104 95-109 [facility]2014-09-22 14:26:00 Test Item Value Reference Range Interpretation Comments Potassium Lvl (test code = Potassium 3.7 3.5-5.1 Lvl) [facility]2014-09-22 14:26:00 Test Item Value Reference Range Interpretation Comments Sodium Lvl (test code = Sodium Lvl) 136 135-145 [facility]2014-09-22 14:26:00 Test Item Value Reference Range Interpretation Comments Calcium Lvl (test code = Calcium Lvl) 9.7 8.5-10.5 [facility] CenterLajfiqjQIQVTQFDXE2902-11-64 14:26:00 Test Item Value Reference Range Interpretation Comments MCV (test code = MCV) 101.6 80.0-98.0 [facility] CenterKubaaufUANSOVVQIU1454-66-68 14:26:00 Test Item Value Reference Range Interpretation Comments MCH (test code = MCH) 35.5 pg 27.0-31.0 [facility] CenterCxyeqprFEEOBBZYSY5437-54-46 14:26:00 Test Item Value Reference Range Interpretation Comments Hgb (test code = Hgb) 13.3 12.0-16.0 [facility] CenterYiqepdmGCTDZPHBBB3602-90-64 14:26:00 Test Item Value Reference Range Interpretation Comments Hct (test code = Hct) 37.9 36.0-48.0 [facility]OmbhwjsYNYLDTQVPC4251-48-40 14:26:00 Test Item Value Reference Range Interpretation Comments RBC (test code = RBC) 3.73 4.20-5.40 [facility] CenterMdtknwmOTAPCIZXKG7595-66-14 14:26:00 Test Item Value Reference Range Interpretation Comments WBC (test code = WBC) 6.1 3.7-10.4 [facility] CenterXrkhvfbONJVUWXNCA0792-74-57 14:26:00 Test Item Value Reference Range Interpretation Comments MPV (test code = MPV) 8.0 7.4-10.4 [facility] CenterPfqjxshAFYSPVCRFX2530-36-66 14:26:00 Test Item Value Reference Range Interpretation Comments RDW (test code = RDW) 17.2 11.5-14.5 [facility] CenterJnhabybXIVRSPEMJN7069-07-76 14:26:00 Test Item Value Reference Range Interpretation Comments Platelet (test code = Platelet) 223 133-450 [facility] CenterLchnuxgECLLIKUWDI3037-15-54 14:26:00 Test Item Value Reference Range Interpretation Comments MCHC (test code = MCHC) 35.0 32.0-36.0 [facility] CenterPdoxspxITOHRBMUFB2538-72-48 14:26:00 Test Item Value Reference Range Interpretation Comments INR (test code = INR) 0.93 0.85-1.17 [facility] CenterHwkbugcFYIHGJQWTI3360-24-16 14:26:00 Test Item Value Reference Range Interpretation Comments PT (test code = PT) 12.4 s 12.0-14.7 [facility]2014-09-22 14:26:00 Test Item Value Reference Range Interpretation Comments BUN (test code = BUN) 8 7-22 [facility]2014-09-22 14:26:00 Test Item Value Reference Range Interpretation Comments Glucose Lvl (test code = Glucose Lvl) 91 70-99 [facility]2014-09-22 14:26:00 Test Item Value Reference Range Interpretation Comments CO2 (test code = CO2) 29 24-32 [facility]2014-09-22 14:26:00 Test Item Value Reference Range Interpretation Comments AGAP (test code = AGAP) 6.7 10.0-20.0 [facility]2014-09-22 14:26:00 Test Item Value Reference Range Interpretation Comments eGFR (test code = eGFR) 86 [facility]2014-09-22 14:26:00 Test Item Value Reference Range Interpretation Comments Creatinine Lvl (test code = Creatinine 0.8 0.5-1.4 Lvl) [facility]2014-09-22 14:26:00 Test Item Value Reference Range Interpretation Comments Chloride Lvl (test code = Chloride Lvl) 104 95-109 [facility]2014-09-22 14:26:00 Test Item Value Reference Range Interpretation Comments Potassium Lvl (test code = Potassium 3.7 3.5-5.1 Lvl) [facility]2014-09-22 14:26:00 Test Item Value Reference Range Interpretation Comments Sodium Lvl (test code = Sodium Lvl) 136 135-145 [facility]2014-09-22 14:26:00 Test Item Value Reference Range Interpretation Comments Calcium Lvl (test code = Calcium Lvl) 9.7 8.5-10.5 [facility] CenterEliplctWBMJQPINUA0693-95-70 14:26:00 Test Item Value Reference Range Interpretation Comments MCV (test code = MCV) 101.6 80.0-98.0 [facility] CenterXdrkpmuEPJDJWABOS9750-38-35 14:26:00 Test Item Value Reference Range Interpretation Comments MCH (test code = MCH) 35.5 pg 27.0-31.0 [facility] CenterOuzsjukEYUBNKHYLX2852-51-98 14:26:00 Test Item Value Reference Range Interpretation Comments Hgb (test code = Hgb) 13.3 12.0-16.0 [facility] CenterIglkuvaFUOXWXTDXW0310-45-73 14:26:00 Test Item Value Reference Range Interpretation Comments Hct (test code = Hct) 37.9 36.0-48.0 [facility] CenterZdetjeqLZWDJFTVCH7071-72-45 14:26:00 Test Item Value Reference Range Interpretation Comments RBC (test code = RBC) 3.73 4.20-5.40 [facility] CenterVhewvvrCLETMFVNUA5535-66-82 14:26:00 Test Item Value Reference Range Interpretation Comments WBC (test code = WBC) 6.1 3.7-10.4 [facility] CenterWzcqrpkPXVMIYLZDJ0625-33-99 14:26:00 Test Item Value Reference Range Interpretation Comments MPV (test code = MPV) 8.0 7.4-10.4 [facility] CenterLjeslrcFVRERCBSDF8828-08-79 14:26:00 Test Item Value Reference Range Interpretation Comments RDW (test code = RDW) 17.2 11.5-14.5 [facility] CenterMvjmiumPKFGKKVCKL1188-53-53 14:26:00 Test Item Value Reference Range Interpretation Comments Platelet (test code = Platelet) 223 133-450 [facility] CenterYdlzkqyIQGOAZIUWM0158-11-50 14:26:00 Test Item Value Reference Range Interpretation Comments MCHC (test code = MCHC) 35.0 32.0-36.0 [facility] CenterFpunbrjSVCNRCBCRC8775-02-53 14:26:00 Test Item Value Reference Range Interpretation Comments INR (test code = INR) 0.93 0.85-1.17 [facility] CenterSmcdyckDUXDNVNBNS0841-81-39 14:26:00 Test Item Value Reference Range Interpretation Comments PT (test code = PT) 12.4 s 12.0-14.7 [facility]2014-09-22 14:26:00 Test Item Value Reference Range Interpretation Comments BUN (test code = BUN) 8 - [facility]2014-09-22 14:26:00 Test Item Value Reference Range Interpretation Comments Glucose Lvl (test code = Glucose Lvl) 91 70-99 [facility]2014-09-22 14:26:00 Test Item Value Reference Range Interpretation Comments CO2 (test code = CO2) 29 - [facility]2014-09-22 14:26:00 Test Item Value Reference Range Interpretation Comments AGAP (test code = AGAP) 6.7 10.0-20.0 [facility]2014-09-22 14:26:00 Test Item Value Reference Range Interpretation Comments eGFR (test code = eGFR) 86 [facility]2014-09-22 14:26:00 Test Item Value Reference Range Interpretation Comments Creatinine Lvl (test code = Creatinine 0.8 0.5-1.4 Lvl) [facility]2014-09-22 14:26:00 Test Item Value Reference Range Interpretation Comments Chloride Lvl (test code = Chloride Lvl) 104 95-109 [facility]2014-09-22 14:26:00 Test Item Value Reference Range Interpretation Comments Potassium Lvl (test code = Potassium 3.7 3.5-5.1 Lvl) [facility]2014-09-22 14:26:00 Test Item Value Reference Range Interpretation Comments Sodium Lvl (test code = Sodium Lvl) 136 135-145 [facility]2014-09-22 14:26:00 Test Item Value Reference Range Interpretation Comments Calcium Lvl (test code = Calcium Lvl) 9.7 8.5-10.5 [facility] CenterRiwrjscQINWDCSJSN6117-86-79 14:26:00 Test Item Value Reference Range Interpretation Comments MCV (test code = MCV) 101.6 80.0-98.0 [facility] CenterAbgpcwkZQCGOSMVVI1691-21-63 14:26:00 Test Item Value Reference Range Interpretation Comments MCH (test code = MCH) 35.5 pg 27.0-31.0 [facility] CenterJxdijmfYVBIDXMOAE5192-37-35 14:26:00 Test Item Value Reference Range Interpretation Comments Hgb (test code = Hgb) 13.3 12.0-16.0 [facility] CenterUhipwemGXFMQTLBIJ7015-35-04 14:26:00 Test Item Value Reference Range Interpretation Comments Hct (test code = Hct) 37.9 36.0-48.0 [facility] CenterNdkqcudUFWZYXFBSM4179-86-47 14:26:00 Test Item Value Reference Range Interpretation Comments RBC (test code = RBC) 3.73 4.20-5.40 [facility] CenterDwoarefXWMRWJGGYD8104-23-15 14:26:00 Test Item Value Reference Range Interpretation Comments WBC (test code = WBC) 6.1 3.7-10.4 [facility] CenterRkhwkkrNTCWRWDFLW3826-65-32 14:26:00 Test Item Value Reference Range Interpretation Comments MPV (test code = MPV) 8.0 7.4-10.4 [facility] CenterKpkmdphRILBOIKVUV8663-76-02 14:26:00 Test Item Value Reference Range Interpretation Comments RDW (test code = RDW) 17.2 11.5-14.5 [facility] CenterSbujryhIWTAPILQIG7090-65-78 14:26:00 Test Item Value Reference Range Interpretation Comments Platelet (test code = Platelet) 223 133-450 [facility] CenterAnyqvvdMPYSCIORAZ5196-20-04 14:26:00 Test Item Value Reference Range Interpretation Comments MCHC (test code = MCHC) 35.0 32.0-36.0 [facility] CenterUherikcCFAKRDRJPE3267-40-50 14:26:00 Test Item Value Reference Range Interpretation Comments INR (test code = INR) 0.93 0.85-1.17 [facility] CenterNdzsowpJLTCADDMCT6436-80-48 14:26:00 Test Item Value Reference Range Interpretation Comments PT (test code = PT) 12.4 s 12.0-14.7 [facility]2014-09-22 14:26:00 Test Item Value Reference Range Interpretation Comments BUN (test code = BUN) 8 7-22 [facility]2014-09-22 14:26:00 Test Item Value Reference Range Interpretation Comments Glucose Lvl (test code = Glucose Lvl) 91 70-99 [facility]2014-09-22 14:26:00 Test Item Value Reference Range Interpretation Comments CO2 (test code = CO2) 29 -32 [facility]2014-05-07 09:42:00 Test Item Value Reference Range Interpretation Comments eGFR (test code = eGFR) 113 [facility]2014-05-07 09:42:00 Test Item Value Reference Range Interpretation Comments BUN (test code = BUN) 4 7-22 [facility]2014-05-07 09:42:00 Test Item Value Reference Range Interpretation Comments Potassium Lvl (test code = Potassium 3.8 3.5-5.1 Lvl) [facility]2014-05-07 09:42:00 Test Item Value Reference Range Interpretation Comments Creatinine Lvl (test code = Creatinine 0.5 0.5-1.4 Lvl) [facility]2014-05-07 09:42:00 Test Item Value Reference Range Interpretation Comments Glucose Lvl (test code = Glucose Lvl) 94 70-99 [facility]2014-05-07 09:42:00 Test Item Value Reference Range Interpretation Comments Sodium Lvl (test code = Sodium Lvl) 142 135-145 [facility]2014-05-07 09:42:00 Test Item Value Reference Range Interpretation Comments Calcium Lvl (test code = Calcium Lvl) 8.7 8.5-10.5 [facility]2014-05-07 09:42:00 Test Item Value Reference Range Interpretation Comments Chloride Lvl (test code = Chloride Lvl) 105 95-109 [facility]2014-05-07 09:42:00 Test Item Value Reference Range Interpretation Comments CO2 (test code = CO2) 30 -32 [facility]2014-05-07 09:42:00 Test Item Value Reference Range Interpretation Comments AGAP (test code = AGAP) 10.8 10.0-20.0 [facility] CenterAnannptPLBTKAYFLK2338-32-79 09:42:00 Test Item Value Reference Range Interpretation Comments WBC (test code = WBC) 4.4 3.7-10.4 [facility] CenterYvnyffyKTGLZWVNHN6911-80-72 09:42:00 Test Item Value Reference Range Interpretation Comments RBC (test code = RBC) 3.80 4.20-5.40 [facility] CenterWykpmikWABIMTIARE3646-17-79 09:42:00 Test Item Value Reference Range Interpretation Comments MCH (test code = MCH) 31.1 pg 27.0-31.0 [facility] CenterEfyozmmTQZBXQMDXN5183-89-72 09:42:00 Test Item Value Reference Range Interpretation Comments Hgb (test code = Hgb) 11.8 12.0-16.0 [facility] CenterDpddqtjSJQDNBYLLU4861-51-70 09:42:00 Test Item Value Reference Range Interpretation Comments Hct (test code = Hct) 34.5 36.0-48.0 [facility] CenterXxlhwgvDIJLGOJYPR9346-53-56 09:42:00 Test Item Value Reference Range Interpretation Comments MCV (test code = MCV) 90.6 81.0-99.0 [facility] CenterMqzgmanPOFDIHOSVF9378-97-21 09:42:00 Test Item Value Reference Range Interpretation Comments RDW (test code = RDW) 16.3 11.5-14.5 [facility] CenterZhihvaqRMXWCEHORA9177-78-69 09:42:00 Test Item Value Reference Range Interpretation Comments MCHC (test code = MCHC) 34.3 32.0-36.0 [facility] CenterHhvsbmzZMGGKURDKX0075-80-76 09:42:00 Test Item Value Reference Range Interpretation Comments Platelet (test code = Platelet) 167 133-450 [facility] CenterZddkphmBYKHIKSDLY1166-32-96 09:42:00 Test Item Value Reference Range Interpretation Comments MPV (test code = MPV) 7.9 7.4-10.4 [facility] CenterCydizrkDETGMZJOOS7335-28-29 09:42:00 Test Item Value Reference Range Interpretation Comments Eosinophils (test code = 1.6 See_Comment [A utomated message] The Eosinophils) system which ge nerated this result tra nsmitted reference range : <=4.0. The reference r jamaica was not used to int erpret this result as normal/abnormal . [facility] CenterVgozurcXQXGSJUZJA4409-67-41 09:42:00 Test Item Value Reference Range Interpretation Comments Basophils (test code = 0.2 See_Comment [Aut omated message] The Basophils) system which ge nerated this result tra nsmitted reference range : <=1.0. The reference r jamaica was not used to int erpret this result as normal/abnormal . [facility] CenterPcoylbnOZQNKPGTOP0509-33-59 09:42:00 Test Item Value Reference Range Interpretation Comments Segs-Bands # (test code = Segs-Bands #) 2.6 1.5-8.1 [facility] CenterGfrkcfoKRDEKAILBC6952-22-21 09:42:00 Test Item Value Reference Range Interpretation Comments Monocytes (test code = Monocytes) 7.4 2.0-12.0 [facility] CenterTjfmjhsIMLLFTQWUF8896-97-35 09:42:00 Test Item Value Reference Range Interpretation Comments Lymphocytes # (test code = Lymphocytes 1.3 1.0-5.5 #) [facility] CenterMjeyefdWHOJKCSFXV2468-31-84 09:42:00 Test Item Value Reference Range Interpretation Comments Monocytes # (test code 0.3 See_Comment [Aut omated message] The = Monocytes #) system which generated this result tra nsmitted reference range : <=0.8. The reference r jamaica was not used to int erpret this result as normal/abnormal . [facility] CenterKvqumzxGZOTPLCLNA2942-35-16 09:42:00 Test Item Value Reference Range Interpretation Comments Eosinophils # (test code 0.1 See_Comment [A utomated message] The = Eosinophils #) system whic h generated this result tra nsmitted reference range : <=0.5. The reference r jamaica was not used to int erpret this result as normal/abnormal . [facility] CenterNlfqgnoLYBTQZTCHB5057-00-32 09:42:00 Test Item Value Reference Range Interpretation Comments Basophils # (test code 0.0 See_Comment [Aut omated message] The = Basophils #) system which generated this result tra nsmitted reference range : <=0.2. The reference r jamaica was not used to int erpret this result as normal/abnormal . [facility] CenterWkwnfvkLYDAPTTBVF9944-03-89 09:42:00 Test Item Value Reference Range Interpretation Comments Lymphocytes (test code = Lymphocytes) 30.7 20.0-40.0 [facility] CenterHtlsghrFZETHHOGIS5644-37-85 09:42:00 Test Item Value Reference Range Interpretation Comments Segs (test code = Segs) 60.1 45.0-75.0 [facility]2014-05-07 09:42:00 Test Item Value Reference Range Interpretation Comments Magnesium Lvl (test code = Magnesium 2.0 1.8-2.4 Lvl) [facility]2014-05-07 09:42:00 Test Item Value Reference Range Interpretation Comments eGFR (test code = eGFR) 113 [facility]2014-05-07 09:42:00 Test Item Value Reference Range Interpretation Comments BUN (test code = BUN) 4 7-22 [place] 290354-05-07 09:42:00 Test Item Value Reference Range Interpretation Comments Potassium Lvl (test code = Potassium 3.8 3.5-5.1 Lvl) [place] [address]-05-07 09:42:00 Test Item Value Reference Range Interpretation Comments Creatinine Lvl (test code = Creatinine 0.5 0.5-1.4 Lvl) [facility]2014-05-07 09:42:00 Test Item Value Reference Range Interpretation Comments Glucose Lvl (test code = Glucose Lvl) 94 70-99 [facility]2014-05-07 09:42:00 Test Item Value Reference Range Interpretation Comments Sodium Lvl (test code = Sodium Lvl) 142 135-145 [place] 290354-05-07 09:42:00 Test Item Value Reference Range Interpretation Comments Calcium Lvl (test code = Calcium Lvl) 8.7 8.5-10.5 [facility]2014-05-07 09:42:00 Test Item Value Reference Range Interpretation Comments Chloride Lvl (test code = Chloride Lvl) 105 95-109 [facility]2014-05-07 09:42:00 Test Item Value Reference Range Interpretation Comments CO2 (test code = CO2) 30 24-32 [facility]2014-05-07 09:42:00 Test Item Value Reference Range Interpretation Comments AGAP (test code = AGAP) 10.8 10.0-20.0 [facility] CenterMmxrnusSNVTOQIJML6589-35-56 09:42:00 Test Item Value Reference Range Interpretation Comments WBC (test code = WBC) 4.4 3.7-10.4 [place] 694914-05-07 09:42:00 Test Item Value Reference Range Interpretation Comments RBC (test code = RBC) 3.80 4.20-5.40 [facility] CenterJpiijojPBKJNKMWXA4662-28-87 09:42:00 Test Item Value Reference Range Interpretation Comments MCH (test code = MCH) 31.1 pg 27.0-31.0 [facility] CenterRszezalZCGRSZGUQH2941-82-60 09:42:00 Test Item Value Reference Range Interpretation Comments Hgb (test code = Hgb) 11.8 12.0-16.0 [facility] CenterSyegwylOHLTFAEPYK4005-36-80 09:42:00 Test Item Value Reference Range Interpretation Comments Hct (test code = Hct) 34.5 36.0-48.0 [facility] CenterPmreebgQHPNDAMAXP2896-49-28 09:42:00 Test Item Value Reference Range Interpretation Comments MCV (test code = MCV) 90.6 81.0-99.0 [facility] CenterLunbnxfAPMADIGFML6649-27-87 09:42:00 Test Item Value Reference Range Interpretation Comments RDW (test code = RDW) 16.3 11.5-14.5 [facility] CenterPuazuadKLCGNIDLML9450-78-87 09:42:00 Test Item Value Reference Range Interpretation Comments MCHC (test code = MCHC) 34.3 32.0-36.0 [facility] CenterZrahrjjBFFJGYLWBB9779-62-05 09:42:00 Test Item Value Reference Range Interpretation Comments Platelet (test code = Platelet) 167 133-450 [facility] CenterAhuuhvwXUELGKSCER9004-53-81 09:42:00 Test Item Value Reference Range Interpretation Comments MPV (test code = MPV) 7.9 7.4-10.4 [facility] CenterQbhivtbXLRRGNRNFV4281-99-46 09:42:00 Test Item Value Reference Range Interpretation Comments Eosinophils (test code = 1.6 See_Comment [A utomated message] The Eosinophils) system which ge nerated this result tra nsmitted reference range : <=4.0. The reference r jamaica was not used to int erpret this result as normal/abnormal . [facility] CenterXgtxnqdITWNQKCJHI8799-36-02 09:42:00 Test Item Value Reference Range Interpretation Comments Basophils (test code = 0.2 See_Comment [Aut omated message] The Basophils) system which ge nerated this result tra nsmitted reference range : <=1.0. The reference r jamaica was not used to int erpret this result as normal/abnormal . [facility] CenterQvtixkhQZDESQAPAI9718-17-64 09:42:00 Test Item Value Reference Range Interpretation Comments Segs-Bands # (test code = Segs-Bands #) 2.6 1.5-8.1 [facility] CenterLqmwicsURUFHBRQNW3504-45-29 09:42:00 Test Item Value Reference Range Interpretation Comments Monocytes (test code = Monocytes) 7.4 2.0-12.0 [facility] CenterItarmfbDZRLSCRYQH6007-52-77 09:42:00 Test Item Value Reference Range Interpretation Comments Lymphocytes # (test code = Lymphocytes 1.3 1.0-5.5 #) [facility] CenterTmianhkXFWKLYGWFM3618-29-15 09:42:00 Test Item Value Reference Range Interpretation Comments Monocytes # (test code 0.3 See_Comment [Aut omated message] The = Monocytes #) system which generated this result tra nsmitted reference range : <=0.8. The reference r jamaica was not used to int erpret this result as normal/abnormal . [facility] CenterSnqigrmJICVERJOCJ3328-89-63 09:42:00 Test Item Value Reference Range Interpretation Comments Eosinophils # (test code 0.1 See_Comment [A utomated message] The = Eosinophils #) system whic h generated this result tra nsmitted reference range : <=0.5. The reference r jamaica was not used to int erpret this result as normal/abnormal . [facility] CenterEmrmbxjMRGIPWHVCJ2312-15-74 09:42:00 Test Item Value Reference Range Interpretation Comments Basophils # (test code 0.0 See_Comment [Aut omated message] The = Basophils #) system which generated this result tra nsmitted reference range : <=0.2. The reference r jamaica was not used to int erpret this result as normal/abnormal . [facility] CenterMcdgcvbZEXFAVZWHI5984-73-91 09:42:00 Test Item Value Reference Range Interpretation Comments Lymphocytes (test code = Lymphocytes) 30.7 20.0-40.0 [facility] CenterMlcmvehJRVKUGYFJM0977-92-52 09:42:00 Test Item Value Reference Range Interpretation Comments Segs (test code = Segs) 60.1 45.0-75.0 [facility]2014-05-07 09:42:00 Test Item Value Reference Range Interpretation Comments Magnesium Lvl (test code = Magnesium 2.0 1.8-2.4 Lvl) [facility]2014-05-07 09:42:00 Test Item Value Reference Range Interpretation Comments eGFR (test code = eGFR) 113 [facility]2014-05-07 09:42:00 Test Item Value Reference Range Interpretation Comments BUN (test code = BUN) 4 7-22 [place] 290354-05-07 09:42:00 Test Item Value Reference Range Interpretation Comments Potassium Lvl (test code = Potassium 3.8 3.5-5.1 Lvl) [facility]2014-05-07 09:42:00 Test Item Value Reference Range Interpretation Comments Creatinine Lvl (test code = Creatinine 0.5 0.5-1.4 Lvl) [place] 290354-05-07 09:42:00 Test Item Value Reference Range Interpretation Comments Glucose Lvl (test code = Glucose Lvl) 94 70-99 [place] 290354-05-07 09:42:00 Test Item Value Reference Range Interpretation Comments Sodium Lvl (test code = Sodium Lvl) 142 135-145 [place] 290354-05-07 09:42:00 Test Item Value Reference Range Interpretation Comments Calcium Lvl (test code = Calcium Lvl) 8.7 8.5-10.5 [place] 290354-05-07 09:42:00 Test Item Value Reference Range Interpretation Comments Chloride Lvl (test code = Chloride Lvl) 105 95-109 [facility]2014-05-07 09:42:00 Test Item Value Reference Range Interpretation Comments CO2 (test code = CO2) 30 24-32 [facility]2014-05-07 09:42:00 Test Item Value Reference Range Interpretation Comments AGAP (test code = AGAP) 10.8 10.0-20.0 [facility] CenterOaxhwygRICSQDXWTA5867-21-74 09:42:00 Test Item Value Reference Range Interpretation Comments WBC (test code = WBC) 4.4 3.7-10.4 [facility] CenterVcwlpsjJBQHEJUVKG8755-86-13 09:42:00 Test Item Value Reference Range Interpretation Comments RBC (test code = RBC) 3.80 4.20-5.40 [place] [address]-05-07 09:42:00 Test Item Value Reference Range Interpretation Comments MCH (test code = MCH) 31.1 pg 27.0-31.0 [place] 694914-05-07 09:42:00 Test Item Value Reference Range Interpretation Comments Hgb (test code = Hgb) 11.8 12.0-16.0 [facility] CenterPtplvogZJNFNEBUEN5608-21-21 09:42:00 Test Item Value Reference Range Interpretation Comments Hct (test code = Hct) 34.5 36.0-48.0 [facility] CenterScfjafdWYRUCEIBZG9029-47-54 09:42:00 Test Item Value Reference Range Interpretation Comments MCV (test code = MCV) 90.6 81.0-99.0 [facility] CenterSfrybhhRFOOZHZBOK5041-00-36 09:42:00 Test Item Value Reference Range Interpretation Comments RDW (test code = RDW) 16.3 11.5-14.5 [facility] CenterPzprfvxSGENWBZSIT1463-72-33 09:42:00 Test Item Value Reference Range Interpretation Comments MCHC (test code = MCHC) 34.3 32.0-36.0 [facility] CenterBtluiptDFZABTOAMC2625-21-21 09:42:00 Test Item Value Reference Range Interpretation Comments Platelet (test code = Platelet) 167 133-450 [facility] CenterUxojxftVOASAFDZMR2154-63-01 09:42:00 Test Item Value Reference Range Interpretation Comments MPV (test code = MPV) 7.9 7.4-10.4 [facility] CenterCieddkiCWGKDXIGDC8679-74-00 09:42:00 Test Item Value Reference Range Interpretation Comments Eosinophils (test code = 1.6 See_Comment [A utomated message] The Eosinophils) system which ge nerated this result tra nsmitted reference range : <=4.0. The reference r jamaica was not used to int erpret this result as normal/abnormal . [facility] CenterNsthztwKQGJRHKNMX1285-48-18 09:42:00 Test Item Value Reference Range Interpretation Comments Basophils (test code = 0.2 See_Comment [Aut omated message] The Basophils) system which ge nerated this result tra nsmitted reference range : <=1.0. The reference r jamaica was not used to int erpret this result as normal/abnormal . [facility] CenterOvrgqrlBTXMPYKPEV3217-73-12 09:42:00 Test Item Value Reference Range Interpretation Comments Segs-Bands # (test code = Segs-Bands #) 2.6 1.5-8.1 [facility] CenterKmylsoyVCRPTGQTQI5818-16-61 09:42:00 Test Item Value Reference Range Interpretation Comments Monocytes (test code = Monocytes) 7.4 2.0-12.0 [facility] CenterIvnpishODMAVNKEUX8261-09-73 09:42:00 Test Item Value Reference Range Interpretation Comments Lymphocytes # (test code = Lymphocytes 1.3 1.0-5.5 #) [facility] CenterVxxyucvRPAYPIDOML8736-76-16 09:42:00 Test Item Value Reference Range Interpretation Comments Monocytes # (test code 0.3 See_Comment [Aut omated message] The = Monocytes #) system which generated this result tra nsmitted reference range : <=0.8. The reference r jamaica was not used to int erpret this result as normal/abnormal . [facility] CenterAlhatjgYHNYVADMVM9387-88-77 09:42:00 Test Item Value Reference Range Interpretation Comments Eosinophils # (test code 0.1 See_Comment [A utomated message] The = Eosinophils #) system whic h generated this result tra nsmitted reference range : <=0.5. The reference r jamaica was not used to int erpret this result as normal/abnormal . [facility] CenterTwuopodJRWOYQQLJV0778-72-86 09:42:00 Test Item Value Reference Range Interpretation Comments Basophils # (test code 0.0 See_Comment [Aut omated message] The = Basophils #) system which generated this result tra nsmitted reference range : <=0.2. The reference r jamaica was not used to int erpret this result as normal/abnormal . [facility] CenterLlueylgBMQIKCHUNT3972-37-99 09:42:00 Test Item Value Reference Range Interpretation Comments Lymphocytes (test code = Lymphocytes) 30.7 20.0-40.0 [facility] CenterLhlcyzbZJRKYNFZPO3273-94-27 09:42:00 Test Item Value Reference Range Interpretation Comments Segs (test code = Segs) 60.1 45.0-75.0 [facility]2014-05-07 09:42:00 Test Item Value Reference Range Interpretation Comments Magnesium Lvl (test code = Magnesium 2.0 1.8-2.4 Lvl) [facility]2014-05-07 09:42:00 Test Item Value Reference Range Interpretation Comments eGFR (test code = eGFR) 113 [facility]2014-05-07 09:42:00 Test Item Value Reference Range Interpretation Comments BUN (test code = BUN) 4 7-22 [place] 290354-05-07 09:42:00 Test Item Value Reference Range Interpretation Comments Potassium Lvl (test code = Potassium 3.8 3.5-5.1 Lvl) [facility]2014-05-07 09:42:00 Test Item Value Reference Range Interpretation Comments Creatinine Lvl (test code = Creatinine 0.5 0.5-1.4 Lvl) [place] 290354-05-07 09:42:00 Test Item Value Reference Range Interpretation Comments Glucose Lvl (test code = Glucose Lvl) 94 70-99 [place] 290354-05-07 09:42:00 Test Item Value Reference Range Interpretation Comments Sodium Lvl (test code = Sodium Lvl) 142 135-145 [facility]2014-05-07 09:42:00 Test Item Value Reference Range Interpretation Comments Calcium Lvl (test code = Calcium Lvl) 8.7 8.5-10.5 [place] 290354-05-07 09:42:00 Test Item Value Reference Range Interpretation Comments Chloride Lvl (test code = Chloride Lvl) 105 95-109 [place] 290354-05-07 09:42:00 Test Item Value Reference Range Interpretation Comments CO2 (test code = CO2) 30 24-32 [place] 290354-05-07 09:42:00 Test Item Value Reference Range Interpretation Comments AGAP (test code = AGAP) 10.8 10.0-20.0 [place] 694914-05-07 09:42:00 Test Item Value Reference Range Interpretation Comments WBC (test code = WBC) 4.4 3.7-10.4 [place] [address]-05-07 09:42:00 Test Item Value Reference Range Interpretation Comments RBC (test code = RBC) 3.80 4.20-5.40 [place] [address]-05-07 09:42:00 Test Item Value Reference Range Interpretation Comments MCH (test code = MCH) 31.1 pg 27.0-31.0 [facility] CenterKicsorgMGLBPEUWKT2909-12-24 09:42:00 Test Item Value Reference Range Interpretation Comments Hgb (test code = Hgb) 11.8 12.0-16.0 [place] [address]-05-07 09:42:00 Test Item Value Reference Range Interpretation Comments Hct (test code = Hct) 34.5 36.0-48.0 [facility] CenterCrfofqqWRWUPCZQQX0871-78-55 09:42:00 Test Item Value Reference Range Interpretation Comments MCV (test code = MCV) 90.6 81.0-99.0 [facility] CenterRuikjajHBIDAJHXXH2494-15-25 09:42:00 Test Item Value Reference Range Interpretation Comments RDW (test code = RDW) 16.3 11.5-14.5 [facility] CenterPyiivyqFUUYWUNIMT7029-91-34 09:42:00 Test Item Value Reference Range Interpretation Comments MCHC (test code = MCHC) 34.3 32.0-36.0 [facility] CenterCjlrqlpMJQAAXLCJQ7396-70-78 09:42:00 Test Item Value Reference Range Interpretation Comments Platelet (test code = Platelet) 167 133-450 [facility] CenterPcxojhvPDSFZCZXON5507-93-56 09:42:00 Test Item Value Reference Range Interpretation Comments MPV (test code = MPV) 7.9 7.4-10.4 [facility] CenterMhvguzuDVLLRHAOML2101-38-06 09:42:00 Test Item Value Reference Range Interpretation Comments Eosinophils (test code = 1.6 See_Comment [A utomated message] The Eosinophils) system which ge nerated this result tra nsmitted reference range : <=4.0. The reference r jamaica was not used to int erpret this result as normal/abnormal . [facility] CenterUjhaccyHMEOVMVGOE0177-38-07 09:42:00 Test Item Value Reference Range Interpretation Comments Basophils (test code = 0.2 See_Comment [Aut omated message] The Basophils) system which ge nerated this result tra nsmitted reference range : <=1.0. The reference r jamaica was not used to int erpret this result as normal/abnormal . [facility] CenterOlomnpwDUEIRWDWTY3545-89-62 09:42:00 Test Item Value Reference Range Interpretation Comments Segs-Bands # (test code = Segs-Bands #) 2.6 1.5-8.1 [facility] CenterRzpukbtNHWTHRJPJV8262-96-59 09:42:00 Test Item Value Reference Range Interpretation Comments Monocytes (test code = Monocytes) 7.4 2.0-12.0 [facility] CenterXowtafoSYNDZVIMUJ0194-01-92 09:42:00 Test Item Value Reference Range Interpretation Comments Lymphocytes # (test code = Lymphocytes 1.3 1.0-5.5 #) [facility] CenterAdvxtwdOGONPJDQRB2311-44-49 09:42:00 Test Item Value Reference Range Interpretation Comments Monocytes # (test code 0.3 See_Comment [Aut omated message] The = Monocytes #) system which generated this result tra nsmitted reference range : <=0.8. The reference r jamaica was not used to int erpret this result as normal/abnormal . [facility] CenterGjipydxFRVJQCNDIG2227-38-44 09:42:00 Test Item Value Reference Range Interpretation Comments Eosinophils # (test code 0.1 See_Comment [A utomated message] The = Eosinophils #) system whic h generated this result tra nsmitted reference range : <=0.5. The reference r jamaica was not used to int erpret this result as normal/abnormal . [facility] CenterSihjimeWZFJQZLOUE9778-28-88 09:42:00 Test Item Value Reference Range Interpretation Comments Basophils # (test code 0.0 See_Comment [Aut omated message] The = Basophils #) system which generated this result tra nsmitted reference range : <=0.2. The reference r jamaica was not used to int erpret this result as normal/abnormal . [facility] CenterOjaidsgNFFZZFGFGD8167-41-41 09:42:00 Test Item Value Reference Range Interpretation Comments Lymphocytes (test code = Lymphocytes) 30.7 20.0-40.0 [facility] CenterOpwvdlcXUJCUWHPZJ8904-27-49 09:42:00 Test Item Value Reference Range Interpretation Comments Segs (test code = Segs) 60.1 45.0-75.0 [facility]2014-05-07 09:42:00 Test Item Value Reference Range Interpretation Comments Magnesium Lvl (test code = Magnesium 2.0 1.8-2.4 Lvl) [place] 290354-05-07 09:42:00 Test Item Value Reference Range Interpretation Comments eGFR (test code = eGFR) 113 [facility]2014-05-07 09:42:00 Test Item Value Reference Range Interpretation Comments BUN (test code = BUN) 4 7-22 [place] [address]-05-07 09:42:00 Test Item Value Reference Range Interpretation Comments Potassium Lvl (test code = Potassium 3.8 3.5-5.1 Lvl) [place] 290354-05-07 09:42:00 Test Item Value Reference Range Interpretation Comments Creatinine Lvl (test code = Creatinine 0.5 0.5-1.4 Lvl) [facility]2014-05-07 09:42:00 Test Item Value Reference Range Interpretation Comments Glucose Lvl (test code = Glucose Lvl) 94 70-99 [place] 290354-05-07 09:42:00 Test Item Value Reference Range Interpretation Comments Sodium Lvl (test code = Sodium Lvl) 142 135-145 [place] 290354-05-07 09:42:00 Test Item Value Reference Range Interpretation Comments Calcium Lvl (test code = Calcium Lvl) 8.7 8.5-10.5 [facility]2014-05-07 09:42:00 Test Item Value Reference Range Interpretation Comments Chloride Lvl (test code = Chloride Lvl) 105 95-109 [facility]2014-05-07 09:42:00 Test Item Value Reference Range Interpretation Comments CO2 (test code = CO2) 30 24-32 [place] 290354-05-07 09:42:00 Test Item Value Reference Range Interpretation Comments AGAP (test code = AGAP) 10.8 10.0-20.0 [facility] CenterUzfanecMXMLJXLQHX5359-58-34 09:42:00 Test Item Value Reference Range Interpretation Comments WBC (test code = WBC) 4.4 3.7-10.4 [facility] CenterSzsaaloWFTPIUAXOW5545-19-23 09:42:00 Test Item Value Reference Range Interpretation Comments RBC (test code = RBC) 3.80 4.20-5.40 [place] 694914-05-07 09:42:00 Test Item Value Reference Range Interpretation Comments MCH (test code = MCH) 31.1 pg 27.0-31.0 [place] [address]-05-07 09:42:00 Test Item Value Reference Range Interpretation Comments Hgb (test code = Hgb) 11.8 12.0-16.0 [facility] CenterSjknmssPDYYLYIQPB8696-38-15 09:42:00 Test Item Value Reference Range Interpretation Comments Hct (test code = Hct) 34.5 36.0-48.0 [place] [address]-05-07 09:42:00 Test Item Value Reference Range Interpretation Comments MCV (test code = MCV) 90.6 81.0-99.0 [facility] CenterGuhxucoOMIQQRMLMY0949-17-44 09:42:00 Test Item Value Reference Range Interpretation Comments RDW (test code = RDW) 16.3 11.5-14.5 [facility] CenterWtsyeolZKNVGTAPQZ6655-76-12 09:42:00 Test Item Value Reference Range Interpretation Comments MCHC (test code = MCHC) 34.3 32.0-36.0 [facility] CenterYwccaogNFOFFEHUUS7816-56-32 09:42:00 Test Item Value Reference Range Interpretation Comments Platelet (test code = Platelet) 167 133-450 [facility] CenterNhterxzMSOBWEHWUQ9081-76-77 09:42:00 Test Item Value Reference Range Interpretation Comments MPV (test code = MPV) 7.9 7.4-10.4 [facility] CenterBbzupmrMLZEZKJSTV1405-23-75 09:42:00 Test Item Value Reference Range Interpretation Comments Eosinophils (test code = 1.6 See_Comment [A utomated message] The Eosinophils) system which ge nerated this result tra nsmitted reference range : <=4.0. The reference r jamaica was not used to int erpret this result as normal/abnormal . [facility] CenterXpdcfatCXVHUDEHOS3868-77-77 09:42:00 Test Item Value Reference Range Interpretation Comments Basophils (test code = 0.2 See_Comment [Aut omated message] The Basophils) system which ge nerated this result tra nsmitted reference range : <=1.0. The reference r jamaica was not used to int erpret this result as normal/abnormal . [facility] CenterUbhkfcpENJLCLGCZA2576-90-21 09:42:00 Test Item Value Reference Range Interpretation Comments Segs-Bands # (test code = Segs-Bands #) 2.6 1.5-8.1 [facility] CenterXftqfbcBSTPTYLVXD5208-66-94 09:42:00 Test Item Value Reference Range Interpretation Comments Monocytes (test code = Monocytes) 7.4 2.0-12.0 [facility] CenterBqvlfauMNITWAKWZD2555-94-08 09:42:00 Test Item Value Reference Range Interpretation Comments Lymphocytes # (test code = Lymphocytes 1.3 1.0-5.5 #) [facility] CenterHkewyphKQHCMEIVZO1905-58-93 09:42:00 Test Item Value Reference Range Interpretation Comments Monocytes # (test code 0.3 See_Comment [Aut omated message] The = Monocytes #) system which generated this result tra nsmitted reference range : <=0.8. The reference r jamaica was not used to int erpret this result as normal/abnormal . [facility] CenterGuiyggsIRREDZTVLX2328-92-75 09:42:00 Test Item Value Reference Range Interpretation Comments Eosinophils # (test code 0.1 See_Comment [A utomated message] The = Eosinophils #) system whic h generated this result tra nsmitted reference range : <=0.5. The reference r jamaica was not used to int erpret this result as normal/abnormal . [facility] CenterKsvaevvAQPHLDNCUJ4102-50-34 09:42:00 Test Item Value Reference Range Interpretation Comments Basophils # (test code 0.0 See_Comment [Aut omated message] The = Basophils #) system which generated this result tra nsmitted reference range : <=0.2. The reference r jamaica was not used to int erpret this result as normal/abnormal . [facility] CenterNstynlvSABCTHSNIR7123-32-60 09:42:00 Test Item Value Reference Range Interpretation Comments Lymphocytes (test code = Lymphocytes) 30.7 20.0-40.0 [facility] CenterTzoftjmSLADETASHZ1474-48-36 09:42:00 Test Item Value Reference Range Interpretation Comments Segs (test code = Segs) 60.1 45.0-75.0 [facility]2014-05-07 09:42:00 Test Item Value Reference Range Interpretation Comments Magnesium Lvl (test code = Magnesium 2.0 1.8-2.4 Lvl) [facility]2014-05-07 09:42:00 Test Item Value Reference Range Interpretation Comments eGFR (test code = eGFR) 113 [facility]2014-05-07 09:42:00 Test Item Value Reference Range Interpretation Comments BUN (test code = BUN) 4 7-22 [facility]2014-05-07 09:42:00 Test Item Value Reference Range Interpretation Comments Potassium Lvl (test code = Potassium 3.8 3.5-5.1 Lvl) [facility]2014-05-07 09:42:00 Test Item Value Reference Range Interpretation Comments Creatinine Lvl (test code = Creatinine 0.5 0.5-1.4 Lvl) [facility]2014-05-07 09:42:00 Test Item Value Reference Range Interpretation Comments Glucose Lvl (test code = Glucose Lvl) 94 70-99 [facility]2014-05-07 09:42:00 Test Item Value Reference Range Interpretation Comments Sodium Lvl (test code = Sodium Lvl) 142 135-145 [place] 290354-05-07 09:42:00 Test Item Value Reference Range Interpretation Comments Calcium Lvl (test code = Calcium Lvl) 8.7 8.5-10.5 [facility]2014-05-07 09:42:00 Test Item Value Reference Range Interpretation Comments Chloride Lvl (test code = Chloride Lvl) 105 95-109 [facility]2014-05-07 09:42:00 Test Item Value Reference Range Interpretation Comments CO2 (test code = CO2) 30 24-32 [place] [address]-05-07 09:42:00 Test Item Value Reference Range Interpretation Comments AGAP (test code = AGAP) 10.8 10.0-20.0 [place] 694914-05-07 09:42:00 Test Item Value Reference Range Interpretation Comments WBC (test code = WBC) 4.4 3.7-10.4 [place] [address]-05-07 09:42:00 Test Item Value Reference Range Interpretation Comments RBC (test code = RBC) 3.80 4.20-5.40 [place] [address]-05-07 09:42:00 Test Item Value Reference Range Interpretation Comments MCH (test code = MCH) 31.1 pg 27.0-31.0 [place] [address]-05-07 09:42:00 Test Item Value Reference Range Interpretation Comments Hgb (test code = Hgb) 11.8 12.0-16.0 [facility] CenterNostbyxKJBWKQRMMW9306-58-86 09:42:00 Test Item Value Reference Range Interpretation Comments Hct (test code = Hct) 34.5 36.0-48.0 [facility] CenterGtjzgtoRPSQSSLYSJ9539-35-85 09:42:00 Test Item Value Reference Range Interpretation Comments MCV (test code = MCV) 90.6 81.0-99.0 [place] [address]-05-07 09:42:00 Test Item Value Reference Range Interpretation Comments RDW (test code = RDW) 16.3 11.5-14.5 [facility] CenterOxqyiwlRVNKZWKEYG5274-35-70 09:42:00 Test Item Value Reference Range Interpretation Comments MCHC (test code = MCHC) 34.3 32.0-36.0 [facility] CenterRdbaewnBOETOIERDP6904-25-31 09:42:00 Test Item Value Reference Range Interpretation Comments Platelet (test code = Platelet) 167 133-450 [facility] CenterPcgargqDFWVQRCRCL8117-10-12 09:42:00 Test Item Value Reference Range Interpretation Comments MPV (test code = MPV) 7.9 7.4-10.4 [facility] CenterQbkknrcFQVNGVWGUA3317-42-32 09:42:00 Test Item Value Reference Range Interpretation Comments Eosinophils (test code = 1.6 See_Comment [A utomated message] The Eosinophils) system which ge nerated this result tra nsmitted reference range : <=4.0. The reference r jamaica was not used to int erpret this result as normal/abnormal . [facility] CenterRkmudsiLQQFLCOAZQ5650-40-39 09:42:00 Test Item Value Reference Range Interpretation Comments Basophils (test code = 0.2 See_Comment [Aut omated message] The Basophils) system which ge nerated this result tra nsmitted reference range : <=1.0. The reference r jamaica was not used to int erpret this result as normal/abnormal . [facility] CenterOlfffqiPDOTEOPMSP8906-78-57 09:42:00 Test Item Value Reference Range Interpretation Comments Segs-Bands # (test code = Segs-Bands #) 2.6 1.5-8.1 [facility] CenterAsghnisIHAFFAURKV4088-05-52 09:42:00 Test Item Value Reference Range Interpretation Comments Monocytes (test code = Monocytes) 7.4 2.0-12.0 [facility] CenterPjdgcblLUBPJHCSHF7955-19-33 09:42:00 Test Item Value Reference Range Interpretation Comments Lymphocytes # (test code = Lymphocytes 1.3 1.0-5.5 #) [facility] CenterRopkuueDQPDMFDUDN3734-07-86 09:42:00 Test Item Value Reference Range Interpretation Comments Monocytes # (test code 0.3 See_Comment [Aut omated message] The = Monocytes #) system which generated this result tra nsmitted reference range : <=0.8. The reference r jamaica was not used to int erpret this result as normal/abnormal . [facility] CenterIybellwHCQEEJVUSW0726-34-96 09:42:00 Test Item Value Reference Range Interpretation Comments Eosinophils # (test code 0.1 See_Comment [A utomated message] The = Eosinophils #) system whic h generated this result tra nsmitted reference range : <=0.5. The reference r jamaica was not used to int erpret this result as normal/abnormal . [facility] CenterXawsuojNWRURMGEDD5158-14-25 09:42:00 Test Item Value Reference Range Interpretation Comments Basophils # (test code 0.0 See_Comment [Aut omated message] The = Basophils #) system which generated this result tra nsmitted reference range : <=0.2. The reference r jamaica was not used to int erpret this result as normal/abnormal . [facility] CenterIhnzcfdBWCYAONQUS2802-34-45 09:42:00 Test Item Value Reference Range Interpretation Comments Lymphocytes (test code = Lymphocytes) 30.7 20.0-40.0 [place] [address]-05-07 09:42:00 Test Item Value Reference Range Interpretation Comments Segs (test code = Segs) 60.1 45.0-75.0 [place] 290354-05-07 09:42:00 Test Item Value Reference Range Interpretation Comments Magnesium Lvl (test code = Magnesium 2.0 1.8-2.4 Lvl) [facility]2014-05-07 09:42:00 Test Item Value Reference Range Interpretation Comments eGFR (test code = eGFR) 113 [facility]2014-05-07 09:42:00 Test Item Value Reference Range Interpretation Comments BUN (test code = BUN) 4 7-22 [facility]2014-05-07 09:42:00 Test Item Value Reference Range Interpretation Comments Potassium Lvl (test code = Potassium 3.8 3.5-5.1 Lvl) [facility]2014-05-07 09:42:00 Test Item Value Reference Range Interpretation Comments Creatinine Lvl (test code = Creatinine 0.5 0.5-1.4 Lvl) [facility]2014-05-07 09:42:00 Test Item Value Reference Range Interpretation Comments Glucose Lvl (test code = Glucose Lvl) 94 70-99 [facility]2014-05-07 09:42:00 Test Item Value Reference Range Interpretation Comments Sodium Lvl (test code = Sodium Lvl) 142 135-145 [facility]2014-05-07 09:42:00 Test Item Value Reference Range Interpretation Comments Calcium Lvl (test code = Calcium Lvl) 8.7 8.5-10.5 [facility]2014-05-07 09:42:00 Test Item Value Reference Range Interpretation Comments Chloride Lvl (test code = Chloride Lvl) 105 95-109 [facility]2014-05-07 09:42:00 Test Item Value Reference Range Interpretation Comments CO2 (test code = CO2) 30 24-32 [facility]2014-05-07 09:42:00 Test Item Value Reference Range Interpretation Comments AGAP (test code = AGAP) 10.8 10.0-20.0 [facility] CenterEqmsaycYYOYQHXHLW4854-14-24 09:42:00 Test Item Value Reference Range Interpretation Comments WBC (test code = WBC) 4.4 3.7-10.4 [facility] CenterSiscvzxOWGQVCICDD4809-96-05 09:42:00 Test Item Value Reference Range Interpretation Comments RBC (test code = RBC) 3.80 4.20-5.40 [facility] CenterOipqcstICCLCBJCUS0701-35-12 09:42:00 Test Item Value Reference Range Interpretation Comments MCH (test code = MCH) 31.1 pg 27.0-31.0 [facility] CenterQteqmdsVRKAIVXSLN3706-27-45 09:42:00 Test Item Value Reference Range Interpretation Comments Hgb (test code = Hgb) 11.8 12.0-16.0 [facility] CenterSnqvxixAJBBNHGBZO0576-26-95 09:42:00 Test Item Value Reference Range Interpretation Comments Hct (test code = Hct) 34.5 36.0-48.0 [facility] CenterDebskfhVXRUNXMSCI4159-77-96 09:42:00 Test Item Value Reference Range Interpretation Comments MCV (test code = MCV) 90.6 81.0-99.0 [facility] CenterPddbcngHNMGZCACAP9275-93-94 09:42:00 Test Item Value Reference Range Interpretation Comments RDW (test code = RDW) 16.3 11.5-14.5 [place] [address]-05-07 09:42:00 Test Item Value Reference Range Interpretation Comments MCHC (test code = MCHC) 34.3 32.0-36.0 [facility] CenterSrrqbzxJKTJKWATDW1352-10-94 09:42:00 Test Item Value Reference Range Interpretation Comments Platelet (test code = Platelet) 167 133-450 [facility] CenterAkboniyFYVOQLVIAW7451-90-82 09:42:00 Test Item Value Reference Range Interpretation Comments MPV (test code = MPV) 7.9 7.4-10.4 [facility] CenterHmusqhcGGPXGSTRUZ8071-93-10 09:42:00 Test Item Value Reference Range Interpretation Comments Eosinophils (test code = 1.6 See_Comment [A utomated message] The Eosinophils) system which ge nerated this result tra nsmitted reference range : <=4.0. The reference r jamaica was not used to int erpret this result as normal/abnormal . [facility] CenterAqsqlgvBBEAWHENDE3606-44-97 09:42:00 Test Item Value Reference Range Interpretation Comments Basophils (test code = 0.2 See_Comment [Aut omated message] The Basophils) system which ge nerated this result tra nsmitted reference range : <=1.0. The reference r jamaica was not used to int erpret this result as normal/abnormal . [facility] CenterVwevjwiKUNGYIVYRA6348-72-08 09:42:00 Test Item Value Reference Range Interpretation Comments Segs-Bands # (test code = Segs-Bands #) 2.6 1.5-8.1 [facility] CenterBrrauodBCUOYRSTZC7008-22-91 09:42:00 Test Item Value Reference Range Interpretation Comments Monocytes (test code = Monocytes) 7.4 2.0-12.0 [facility] CenterBefbovrJKGNUGAZNR5659-31-30 09:42:00 Test Item Value Reference Range Interpretation Comments Lymphocytes # (test code = Lymphocytes 1.3 1.0-5.5 #) [facility] CenterVwzmsbtFHHORNBGUD7713-87-35 09:42:00 Test Item Value Reference Range Interpretation Comments Monocytes # (test code 0.3 See_Comment [Aut omated message] The = Monocytes #) system which generated this result tra nsmitted reference range : <=0.8. The reference r jamaica was not used to int erpret this result as normal/abnormal . [facility] CenterIgrftbnDHMCQDGGFZ0668-39-76 09:42:00 Test Item Value Reference Range Interpretation Comments Eosinophils # (test code 0.1 See_Comment [A utomated message] The = Eosinophils #) system whic h generated this result tra nsmitted reference range : <=0.5. The reference r jamaica was not used to int erpret this result as normal/abnormal . [facility] CenterBpqfrluMLZOLXZTMF4562-29-65 09:42:00 Test Item Value Reference Range Interpretation Comments Basophils # (test code 0.0 See_Comment [Aut omated message] The = Basophils #) system which generated this result tra nsmitted reference range : <=0.2. The reference r jamaica was not used to int erpret this result as normal/abnormal . [facility] CenterCylpwlrQEXQZVKBOA1770-99-60 09:42:00 Test Item Value Reference Range Interpretation Comments Lymphocytes (test code = Lymphocytes) 30.7 20.0-40.0 [facility] CenterCchpvnrLCMMPZZVGH4938-59-18 09:42:00 Test Item Value Reference Range Interpretation Comments Segs (test code = Segs) 60.1 45.0-75.0 [facility]2014-05-07 09:42:00 Test Item Value Reference Range Interpretation Comments Magnesium Lvl (test code = Magnesium 2.0 1.8-2.4 Lvl) [facility]2014-05-07 09:42:00 Test Item Value Reference Range Interpretation Comments eGFR (test code = eGFR) 113 [facility]2014-05-07 09:42:00 Test Item Value Reference Range Interpretation Comments BUN (test code = BUN) 4 7-22 [place] 290354-05-07 09:42:00 Test Item Value Reference Range Interpretation Comments Potassium Lvl (test code = Potassium 3.8 3.5-5.1 Lvl) [facility]2014-05-07 09:42:00 Test Item Value Reference Range Interpretation Comments Creatinine Lvl (test code = Creatinine 0.5 0.5-1.4 Lvl) [facility]2014-05-07 09:42:00 Test Item Value Reference Range Interpretation Comments Glucose Lvl (test code = Glucose Lvl) 94 70-99 [place] 290354-05-07 09:42:00 Test Item Value Reference Range Interpretation Comments Sodium Lvl (test code = Sodium Lvl) 142 135-145 [facility]2014-05-07 09:42:00 Test Item Value Reference Range Interpretation Comments Calcium Lvl (test code = Calcium Lvl) 8.7 8.5-10.5 [facility]2014-05-07 09:42:00 Test Item Value Reference Range Interpretation Comments Chloride Lvl (test code = Chloride Lvl) 105 95-109 [facility]2014-05-07 09:42:00 Test Item Value Reference Range Interpretation Comments CO2 (test code = CO2) 30 24-32 [facility]2014-05-07 09:42:00 Test Item Value Reference Range Interpretation Comments AGAP (test code = AGAP) 10.8 10.0-20.0 [facility] CenterFxykzniPWZWSOYJVZ8789-64-89 09:42:00 Test Item Value Reference Range Interpretation Comments WBC (test code = WBC) 4.4 3.7-10.4 [facility] CenterWfrfkdiYDUBVBRNLA0876-59-97 09:42:00 Test Item Value Reference Range Interpretation Comments RBC (test code = RBC) 3.80 4.20-5.40 [facility] CenterBujdkyaDPRUSEGLDE3204-43-62 09:42:00 Test Item Value Reference Range Interpretation Comments MCH (test code = MCH) 31.1 pg 27.0-31.0 [facility] CenterBwxwwwdGTRXTNDZJW7833-48-35 09:42:00 Test Item Value Reference Range Interpretation Comments Hgb (test code = Hgb) 11.8 12.0-16.0 [facility] CenterJlijxrhCBARTVZQBI5636-54-74 09:42:00 Test Item Value Reference Range Interpretation Comments Hct (test code = Hct) 34.5 36.0-48.0 [facility] CenterPcscocvLYJXHNYSXA1101-11-64 09:42:00 Test Item Value Reference Range Interpretation Comments MCV (test code = MCV) 90.6 81.0-99.0 [facility] CenterAphvbgpONWJVMKFAM7974-19-62 09:42:00 Test Item Value Reference Range Interpretation Comments RDW (test code = RDW) 16.3 11.5-14.5 [facility] CenterMvoquzsFJCQDPYVNK8033-50-27 09:42:00 Test Item Value Reference Range Interpretation Comments MCHC (test code = MCHC) 34.3 32.0-36.0 [facility] CenterNhsqqyiTYPNMDWYBN0783-85-72 09:42:00 Test Item Value Reference Range Interpretation Comments Platelet (test code = Platelet) 167 133-450 [facility] CenterDxkirjjUTCWMNCQUU1205-19-37 09:42:00 Test Item Value Reference Range Interpretation Comments MPV (test code = MPV) 7.9 7.4-10.4 [facility] CenterXkmgvfkFIGPFMBADF1097-36-76 09:42:00 Test Item Value Reference Range Interpretation Comments Eosinophils (test code = 1.6 See_Comment [A utomated message] The Eosinophils) system which ge nerated this result tra nsmitted reference range : <=4.0. The reference r jamaica was not used to int erpret this result as normal/abnormal . [facility] CenterLxgviyfJQUQNKOUZC5011-98-58 09:42:00 Test Item Value Reference Range Interpretation Comments Basophils (test code = 0.2 See_Comment [Aut omated message] The Basophils) system which ge nerated this result tra nsmitted reference range : <=1.0. The reference r jamaica was not used to int erpret this result as normal/abnormal . [facility] CenterOwffgykYLIWMNLDFE4274-78-41 09:42:00 Test Item Value Reference Range Interpretation Comments Segs-Bands # (test code = Segs-Bands #) 2.6 1.5-8.1 [facility] CenterNvikfmlTHCCCIDUSZ7554-53-35 09:42:00 Test Item Value Reference Range Interpretation Comments Monocytes (test code = Monocytes) 7.4 2.0-12.0 [facility] CenterXjiggxjEDEHJSKAZJ8449-96-35 09:42:00 Test Item Value Reference Range Interpretation Comments Lymphocytes # (test code = Lymphocytes 1.3 1.0-5.5 #) [facility] CenterSvsxrwzYYSAOQJMJV3342-96-63 09:42:00 Test Item Value Reference Range Interpretation Comments Monocytes # (test code 0.3 See_Comment [Aut omated message] The = Monocytes #) system which generated this result tra nsmitted reference range : <=0.8. The reference r jamaica was not used to int erpret this result as normal/abnormal . [facility] CenterNywnslgTWAFZPCUBJ5883-70-25 09:42:00 Test Item Value Reference Range Interpretation Comments Eosinophils # (test code 0.1 See_Comment [A utomated message] The = Eosinophils #) system whic h generated this result tra nsmitted reference range : <=0.5. The reference r jamaica was not used to int erpret this result as normal/abnormal . [place] 694914-05-07 09:42:00 Test Item Value Reference Range Interpretation Comments Basophils # (test code 0.0 See_Comment [Aut omated message] The = Basophils #) system which generated this result tra nsmitted reference range : <=0.2. The reference r jamaica was not used to int erpret this result as normal/abnormal . [facility] CenterYvouuasNIDGVAJQJK3452-96-07 09:42:00 Test Item Value Reference Range Interpretation Comments Lymphocytes (test code = Lymphocytes) 30.7 20.0-40.0 [facility] CenterBsdmhimMDWBTKVJME3815-84-45 09:42:00 Test Item Value Reference Range Interpretation Comments Segs (test code = Segs) 60.1 45.0-75.0 [facility]2014-05-07 09:42:00 Test Item Value Reference Range Interpretation Comments Magnesium Lvl (test code = Magnesium 2.0 1.8-2.4 Lvl) [facility]2014-05-07 09:42:00 Test Item Value Reference Range Interpretation Comments eGFR (test code = eGFR) 113 [facility]2014-05-07 09:42:00 Test Item Value Reference Range Interpretation Comments BUN (test code = BUN) 4 7-22 [place] 290354-05-07 09:42:00 Test Item Value Reference Range Interpretation Comments Potassium Lvl (test code = Potassium 3.8 3.5-5.1 Lvl) [facility]2014-05-07 09:42:00 Test Item Value Reference Range Interpretation Comments Creatinine Lvl (test code = Creatinine 0.5 0.5-1.4 Lvl) [facility]2014-05-07 09:42:00 Test Item Value Reference Range Interpretation Comments Glucose Lvl (test code = Glucose Lvl) 94 70-99 [place] 290354-05-07 09:42:00 Test Item Value Reference Range Interpretation Comments Sodium Lvl (test code = Sodium Lvl) 142 135-145 [facility]2014-05-07 09:42:00 Test Item Value Reference Range Interpretation Comments Calcium Lvl (test code = Calcium Lvl) 8.7 8.5-10.5 [facility]2014-05-07 09:42:00 Test Item Value Reference Range Interpretation Comments Chloride Lvl (test code = Chloride Lvl) 105 95-109 [facility] MCEXA9217-19-68 09:42:00 Test Item Value Reference Range Interpretation Comments CO2 (test code = CO2) 30 24-32 [facility] JGKII5564-79-24 09:42:00 Test Item Value Reference Range Interpretation Comments AGAP (test code = AGAP) 10.8 10.0-20.0 [facility] CenterZtwljeyLTUPVOZEET0551-50-88 09:42:00 Test Item Value Reference Range Interpretation Comments WBC (test code = WBC) 4.4 3.7-10.4 [facility] CenterLmafmjhPRVIIYMUKI0181-99-25 09:42:00 Test Item Value Reference Range Interpretation Comments RBC (test code = RBC) 3.80 4.20-5.40 [facility] CenterFwrduttSFGBHFNBCJ0975-38-40 09:42:00 Test Item Value Reference Range Interpretation Comments MCH (test code = MCH) 31.1 pg 27.0-31.0 [facility] CenterAfoxxtrEFLOIIZXVJ7549-96-87 09:42:00 Test Item Value Reference Range Interpretation Comments Hgb (test code = Hgb) 11.8 12.0-16.0 [facility] CenterUdlzmcoHSYDFTRETO7909-55-46 09:42:00 Test Item Value Reference Range Interpretation Comments Hct (test code = Hct) 34.5 36.0-48.0 [facility] CenterCekjimzCBLTLBLUQE6467-04-28 09:42:00 Test Item Value Reference Range Interpretation Comments MCV (test code = MCV) 90.6 81.0-99.0 [facility] CenterHassqkwCKTBQPDEYC0816-22-50 09:42:00 Test Item Value Reference Range Interpretation Comments RDW (test code = RDW) 16.3 11.5-14.5 [facility] CenterViqecahDFKQIQCJOT0391-97-98 09:42:00 Test Item Value Reference Range Interpretation Comments MCHC (test code = MCHC) 34.3 32.0-36.0 [facility] CenterFzmkzorVOIIQTGMPN9869-90-28 09:42:00 Test Item Value Reference Range Interpretation Comments Platelet (test code = Platelet) 167 133-450 [facility] CenterHhqafzbSROGSUHUSO7626-21-33 09:42:00 Test Item Value Reference Range Interpretation Comments MPV (test code = MPV) 7.9 7.4-10.4 [facility] CenterJhykublCQTWUMSUMO0740-38-28 09:42:00 Test Item Value Reference Range Interpretation Comments Eosinophils (test code = 1.6 See_Comment [A utomated message] The Eosinophils) system which ge nerated this result tra nsmitted reference range : <=4.0. The reference r jamaica was not used to int erpret this result as normal/abnormal . [facility] CenterZyynyrqYRJLDGTUDN6993-64-06 09:42:00 Test Item Value Reference Range Interpretation Comments Basophils (test code = 0.2 See_Comment [Aut omated message] The Basophils) system which ge nerated this result tra nsmitted reference range : <=1.0. The reference r jamaica was not used to int erpret this result as normal/abnormal . [facility] CenterGyphfnxVIJEPLYSIZ6506-44-45 09:42:00 Test Item Value Reference Range Interpretation Comments Segs-Bands # (test code = Segs-Bands #) 2.6 1.5-8.1 [facility] CenterVsprsepHWVQXAOWOO2947-22-04 09:42:00 Test Item Value Reference Range Interpretation Comments Monocytes (test code = Monocytes) 7.4 2.0-12.0 [place] 694914-05-07 09:42:00 Test Item Value Reference Range Interpretation Comments Lymphocytes # (test code = Lymphocytes 1.3 1.0-5.5 #) [facility] CenterGrmcqzoDIUCTMKZDB7146-51-94 09:42:00 Test Item Value Reference Range Interpretation Comments Monocytes # (test code 0.3 See_Comment [Aut omated message] The = Monocytes #) system which generated this result tra nsmitted reference range : <=0.8. The reference r jamaica was not used to int erpret this result as normal/abnormal . [facility] CenterIkrfctcDWSZPIHTYQ7682-23-52 09:42:00 Test Item Value Reference Range Interpretation Comments Eosinophils # (test code 0.1 See_Comment [A utomated message] The = Eosinophils #) system whic h generated this result tra nsmitted reference range : <=0.5. The reference r jamaica was not used to int erpret this result as normal/abnormal . [facility] CenterAkmlymzIMCYDJVZEE6934-52-14 09:42:00 Test Item Value Reference Range Interpretation Comments Basophils # (test code 0.0 See_Comment [Aut omated message] The = Basophils #) system which generated this result tra nsmitted reference range : <=0.2. The reference r jamaica was not used to int erpret this result as normal/abnormal . [facility] CenterBblkmtvZBLPMHFSOE8867-91-19 09:42:00 Test Item Value Reference Range Interpretation Comments Lymphocytes (test code = Lymphocytes) 30.7 20.0-40.0 [facility] CenterGnfvvpiVMVAMQEOXV1275-05-41 09:42:00 Test Item Value Reference Range Interpretation Comments Segs (test code = Segs) 60.1 45.0-75.0 [facility]2014-05-07 09:42:00 Test Item Value Reference Range Interpretation Comments Magnesium Lvl (test code = Magnesium 2.0 1.8-2.4 Lvl) [facility]2014-05-07 09:42:00 Test Item Value Reference Range Interpretation Comments eGFR (test code = eGFR) 113 [facility]2014-05-07 09:42:00 Test Item Value Reference Range Interpretation Comments BUN (test code = BUN) 4 7-22 [place] 290354-05-07 09:42:00 Test Item Value Reference Range Interpretation Comments Potassium Lvl (test code = Potassium 3.8 3.5-5.1 Lvl) [facility]2014-05-07 09:42:00 Test Item Value Reference Range Interpretation Comments Creatinine Lvl (test code = Creatinine 0.5 0.5-1.4 Lvl) [facility]2014-05-07 09:42:00 Test Item Value Reference Range Interpretation Comments Glucose Lvl (test code = Glucose Lvl) 94 70-99 [facility]2014-05-07 09:42:00 Test Item Value Reference Range Interpretation Comments Sodium Lvl (test code = Sodium Lvl) 142 135-145 [facility]2014-05-07 09:42:00 Test Item Value Reference Range Interpretation Comments Calcium Lvl (test code = Calcium Lvl) 8.7 8.5-10.5 [facility]2014-05-07 09:42:00 Test Item Value Reference Range Interpretation Comments Chloride Lvl (test code = Chloride Lvl) 105 95-109 [place] 290354-05-07 09:42:00 Test Item Value Reference Range Interpretation Comments CO2 (test code = CO2) 30 24-32 [facility]2014-05-07 09:42:00 Test Item Value Reference Range Interpretation Comments AGAP (test code = AGAP) 10.8 10.0-20.0 [facility] CenterGqwgxugKXGOHKNEHB1944-20-96 09:42:00 Test Item Value Reference Range Interpretation Comments WBC (test code = WBC) 4.4 3.7-10.4 [facility] CenterLuvjoshQDSOYXWEQW1824-14-08 09:42:00 Test Item Value Reference Range Interpretation Comments RBC (test code = RBC) 3.80 4.20-5.40 [facility] CenterFhdufctKPQIGXUHBK5216-10-02 09:42:00 Test Item Value Reference Range Interpretation Comments MCH (test code = MCH) 31.1 pg 27.0-31.0 [facility] CenterHwlsuwjHOLVMBLOLX7321-88-02 09:42:00 Test Item Value Reference Range Interpretation Comments Hgb (test code = Hgb) 11.8 12.0-16.0 [facility] CenterYdqfsemLCUFXFZWMS8607-49-32 09:42:00 Test Item Value Reference Range Interpretation Comments Hct (test code = Hct) 34.5 36.0-48.0 [facility] CenterOvoggxtMTXZULZMJW4289-85-62 09:42:00 Test Item Value Reference Range Interpretation Comments MCV (test code = MCV) 90.6 81.0-99.0 [facility] CenterZbddjjrKGSGIIUFZX2928-21-74 09:42:00 Test Item Value Reference Range Interpretation Comments RDW (test code = RDW) 16.3 11.5-14.5 [facility] CenterSakaeykCMBTYIWWPL0510-36-60 09:42:00 Test Item Value Reference Range Interpretation Comments MCHC (test code = MCHC) 34.3 32.0-36.0 [facility] CenterPyiefvkYSVLUOQZSV1181-30-31 09:42:00 Test Item Value Reference Range Interpretation Comments Platelet (test code = Platelet) 167 133-450 [facility] CenterJajyapxJZANVSGODZ7046-74-68 09:42:00 Test Item Value Reference Range Interpretation Comments MPV (test code = MPV) 7.9 7.4-10.4 [facility] CenterZykmhnrQIEVHOBRDN5379-20-77 09:42:00 Test Item Value Reference Range Interpretation Comments Eosinophils (test code = 1.6 See_Comment [A utomated message] The Eosinophils) system which ge nerated this result tra nsmitted reference range : <=4.0. The reference r jamaica was not used to int erpret this result as normal/abnormal . [facility] CenterVbqbebjEUYTPCBYLC8095-14-66 09:42:00 Test Item Value Reference Range Interpretation Comments Basophils (test code = 0.2 See_Comment [Aut omated message] The Basophils) system which ge nerated this result tra nsmitted reference range : <=1.0. The reference r jamaica was not used to int erpret this result as normal/abnormal . [facility] CenterJljxfpfJDLZXAIBAO3340-72-08 09:42:00 Test Item Value Reference Range Interpretation Comments Segs-Bands # (test code = Segs-Bands #) 2.6 1.5-8.1 [facility] CenterDfdedscDAURMBAPBN9691-88-25 09:42:00 Test Item Value Reference Range Interpretation Comments Monocytes (test code = Monocytes) 7.4 2.0-12.0 [facility] CenterWihtisuFBMZFLHNJC3197-64-97 09:42:00 Test Item Value Reference Range Interpretation Comments Lymphocytes # (test code = Lymphocytes 1.3 1.0-5.5 #) [facility] CenterMvsinhkLVZROPXKXG4764-74-25 09:42:00 Test Item Value Reference Range Interpretation Comments Monocytes # (test code 0.3 See_Comment [Aut omated message] The = Monocytes #) system which generated this result tra nsmitted reference range : <=0.8. The reference r jamaica was not used to int erpret this result as normal/abnormal . [facility] CenterEepuhuaMZCBNHDKMO4773-45-84 09:42:00 Test Item Value Reference Range Interpretation Comments Eosinophils # (test code 0.1 See_Comment [A utomated message] The = Eosinophils #) system whic h generated this result tra nsmitted reference range : <=0.5. The reference r jamaica was not used to int erpret this result as normal/abnormal . [facility] CenterIxtcrflUZLCOGZASY4489-64-07 09:42:00 Test Item Value Reference Range Interpretation Comments Basophils # (test code 0.0 See_Comment [Aut omated message] The = Basophils #) system which generated this result tra nsmitted reference range : <=0.2. The reference r jamaica was not used to int erpret this result as normal/abnormal . [facility] CenterByofjhmIERIZMHFAJ8776-94-53 09:42:00 Test Item Value Reference Range Interpretation Comments Lymphocytes (test code = Lymphocytes) 30.7 20.0-40.0 [facility] CenterHkbftygEZJSTXEXMQ6930-75-66 09:42:00 Test Item Value Reference Range Interpretation Comments Segs (test code = Segs) 60.1 45.0-75.0 [facility]2014-05-07 09:42:00 Test Item Value Reference Range Interpretation Comments Magnesium Lvl (test code = Magnesium 2.0 1.8-2.4 Lvl) [facility]2014-05-07 09:42:00 Test Item Value Reference Range Interpretation Comments eGFR (test code = eGFR) 113 [facility]2014-05-07 09:42:00 Test Item Value Reference Range Interpretation Comments BUN (test code = BUN) 4 7-22 [facility]2014-05-07 09:42:00 Test Item Value Reference Range Interpretation Comments Potassium Lvl (test code = Potassium 3.8 3.5-5.1 Lvl) [facility]2014-05-07 09:42:00 Test Item Value Reference Range Interpretation Comments Creatinine Lvl (test code = Creatinine 0.5 0.5-1.4 Lvl) [facility]2014-05-07 09:42:00 Test Item Value Reference Range Interpretation Comments Glucose Lvl (test code = Glucose Lvl) 94 70-99 [facility]2014-05-07 09:42:00 Test Item Value Reference Range Interpretation Comments Sodium Lvl (test code = Sodium Lvl) 142 135-145 [facility]2014-05-07 09:42:00 Test Item Value Reference Range Interpretation Comments Calcium Lvl (test code = Calcium Lvl) 8.7 8.5-10.5 [facility]2014-05-07 09:42:00 Test Item Value Reference Range Interpretation Comments Chloride Lvl (test code = Chloride Lvl) 105 95-109 [facility]2014-05-07 09:42:00 Test Item Value Reference Range Interpretation Comments CO2 (test code = CO2) 30 24-32 [facility]2014-05-07 09:42:00 Test Item Value Reference Range Interpretation Comments AGAP (test code = AGAP) 10.8 10.0-20.0 [facility] CenterSnuthvpVWNPDSIUMF8994-09-95 09:42:00 Test Item Value Reference Range Interpretation Comments WBC (test code = WBC) 4.4 3.7-10.4 [facility] CenterTeizwmhXDICLCZVNX1804-09-31 09:42:00 Test Item Value Reference Range Interpretation Comments RBC (test code = RBC) 3.80 4.20-5.40 [facility] CenterTyfmezzVYBNRHXYFF2992-67-23 09:42:00 Test Item Value Reference Range Interpretation Comments MCH (test code = MCH) 31.1 pg 27.0-31.0 [facility] CenterMpasfxdGWOJICPUGE4999-03-83 09:42:00 Test Item Value Reference Range Interpretation Comments Hgb (test code = Hgb) 11.8 12.0-16.0 [facility] CenterVbbtofrSSSJWTAPIP6603-47-01 09:42:00 Test Item Value Reference Range Interpretation Comments Hct (test code = Hct) 34.5 36.0-48.0 [facility] CenterNniifxiFHPEAXXWSF1409-08-78 09:42:00 Test Item Value Reference Range Interpretation Comments MCV (test code = MCV) 90.6 81.0-99.0 [facility] CenterHmclgjeHBBKIHDVYN5741-37-62 09:42:00 Test Item Value Reference Range Interpretation Comments RDW (test code = RDW) 16.3 11.5-14.5 [facility] CenterVlnniciCQOCIPKYRE1896-30-00 09:42:00 Test Item Value Reference Range Interpretation Comments MCHC (test code = MCHC) 34.3 32.0-36.0 [facility] CenterZudufqlIWCEDNRQSK8295-31-71 09:42:00 Test Item Value Reference Range Interpretation Comments Platelet (test code = Platelet) 167 133-450 [facility] CenterGuxkyyuXPPQVUSRSY4704-86-85 09:42:00 Test Item Value Reference Range Interpretation Comments MPV (test code = MPV) 7.9 7.4-10.4 [facility] CenterZlyzwjaSQVZDOZCQD8657-39-34 09:42:00 Test Item Value Reference Range Interpretation Comments Eosinophils (test code = 1.6 See_Comment [A utomated message] The Eosinophils) system which ge nerated this result tra nsmitted reference range : <=4.0. The reference r jamaica was not used to int erpret this result as normal/abnormal . [facility] CenterIozgkajPIPZCCCCBS5006-44-61 09:42:00 Test Item Value Reference Range Interpretation Comments Basophils (test code = 0.2 See_Comment [Aut omated message] The Basophils) system which ge nerated this result tra nsmitted reference range : <=1.0. The reference r jamaica was not used to int erpret this result as normal/abnormal . [facility] CenterYklsxpwIBOWQJDDQB2425-98-26 09:42:00 Test Item Value Reference Range Interpretation Comments Segs-Bands # (test code = Segs-Bands #) 2.6 1.5-8.1 [facility] CenterVubligkNDYNYXTRBL1891-96-40 09:42:00 Test Item Value Reference Range Interpretation Comments Monocytes (test code = Monocytes) 7.4 2.0-12.0 [facility] CenterTfwskeyHRSKGGPTUO1998-14-39 09:42:00 Test Item Value Reference Range Interpretation Comments Lymphocytes # (test code = Lymphocytes 1.3 1.0-5.5 #) [facility] CenterKnybjdrIYNRJDEBPJ0881-66-78 09:42:00 Test Item Value Reference Range Interpretation Comments Monocytes # (test code 0.3 See_Comment [Aut omated message] The = Monocytes #) system which generated this result tra nsmitted reference range : <=0.8. The reference r jamaica was not used to int erpret this result as normal/abnormal . [facility] CenterKtyzyjoCJNBZRBVUI1450-92-02 09:42:00 Test Item Value Reference Range Interpretation Comments Eosinophils # (test code 0.1 See_Comment [A utomated message] The = Eosinophils #) system wh h generated this result tra nsmitted reference range : <=0.5. The reference r jamaica was not used to int erpret this result as normal/abnormal . [facility] CenterMabuokeOVFZPDHXEV2968-31-17 09:42:00 Test Item Value Reference Range Interpretation Comments Basophils # (test code 0.0 See_Comment [Aut omated message] The = Basophils #) system which generated this result tra nsmitted reference range : <=0.2. The reference r jamaica was not used to int erpret this result as normal/abnormal . [facility] CenterIutxytkBJIPUXMZHK3522-63-59 09:42:00 Test Item Value Reference Range Interpretation Comments Lymphocytes (test code = Lymphocytes) 30.7 20.0-40.0 [facility]QjwksreMYEFSCXEAP5998-53-08 09:42:00 Test Item Value Reference Range Interpretation Comments Segs (test code = Segs) 60.1 45.0-75.0 [facility]2014-05-07 09:42:00 Test Item Value Reference Range Interpretation Comments Magnesium Lvl (test code = Magnesium 2.0 1.8-2.4 Lvl) [place] 290354-05-07 09:42:00 Test Item Value Reference Range Interpretation Comments eGFR (test code = eGFR) 113 [facility]2014-05-07 09:42:00 Test Item Value Reference Range Interpretation Comments BUN (test code = BUN) 4 7-22 [place] 290354-05-07 09:42:00 Test Item Value Reference Range Interpretation Comments Potassium Lvl (test code = Potassium 3.8 3.5-5.1 Lvl) [facility]2014-05-07 09:42:00 Test Item Value Reference Range Interpretation Comments Creatinine Lvl (test code = Creatinine 0.5 0.5-1.4 Lvl) [facility]2014-05-07 09:42:00 Test Item Value Reference Range Interpretation Comments Glucose Lvl (test code = Glucose Lvl) 94 70-99 [facility]2014-05-07 09:42:00 Test Item Value Reference Range Interpretation Comments Sodium Lvl (test code = Sodium Lvl) 142 135-145 [facility]2014-05-07 09:42:00 Test Item Value Reference Range Interpretation Comments Calcium Lvl (test code = Calcium Lvl) 8.7 8.5-10.5 [facility]2014-05-07 09:42:00 Test Item Value Reference Range Interpretation Comments Chloride Lvl (test code = Chloride Lvl) 105 95-109 [facility]2014-05-07 09:42:00 Test Item Value Reference Range Interpretation Comments CO2 (test code = CO2) 30 24-32 [facility]2014-05-07 09:42:00 Test Item Value Reference Range Interpretation Comments AGAP (test code = AGAP) 10.8 10.0-20.0 [facility] CenterPfqykbaTBJIEKPYBU7425-75-88 09:42:00 Test Item Value Reference Range Interpretation Comments WBC (test code = WBC) 4.4 3.7-10.4 [place] 694914-05-07 09:42:00 Test Item Value Reference Range Interpretation Comments RBC (test code = RBC) 3.80 4.20-5.40 [facility] CenterQqscyhpKNYTADNEFN4465-74-23 09:42:00 Test Item Value Reference Range Interpretation Comments MCH (test code = MCH) 31.1 pg 27.0-31.0 [facility] CenterGaytyqtQJOVWNBAYH2813-38-81 09:42:00 Test Item Value Reference Range Interpretation Comments Hgb (test code = Hgb) 11.8 12.0-16.0 [facility] CenterAajfvxkZGXSDOSAJR6085-50-25 09:42:00 Test Item Value Reference Range Interpretation Comments Hct (test code = Hct) 34.5 36.0-48.0 [facility] CenterTzkcmafSVZUUNWBYF2783-38-00 09:42:00 Test Item Value Reference Range Interpretation Comments MCV (test code = MCV) 90.6 81.0-99.0 [facility] CenterLnbkixfAEKFSSAWWG2441-02-55 09:42:00 Test Item Value Reference Range Interpretation Comments RDW (test code = RDW) 16.3 11.5-14.5 [place] 694914-05-07 09:42:00 Test Item Value Reference Range Interpretation Comments MCHC (test code = MCHC) 34.3 32.0-36.0 [facility] CenterLntuxphKUDBVCZSTG8946-43-35 09:42:00 Test Item Value Reference Range Interpretation Comments Platelet (test code = Platelet) 167 133-450 [facility] CenterDlzdayvDEOLEAHBAA7041-23-53 09:42:00 Test Item Value Reference Range Interpretation Comments MPV (test code = MPV) 7.9 7.4-10.4 [facility] CenterVityrupOJQEZOQYNO5347-03-13 09:42:00 Test Item Value Reference Range Interpretation Comments Eosinophils (test code = 1.6 See_Comment [A utomated message] The Eosinophils) system which ge nerated this result tra nsmitted reference range : <=4.0. The reference r jamaica was not used to int erpret this result as normal/abnormal . [facility] CenterTpckxsjUDEBZPNZQV5524-47-03 09:42:00 Test Item Value Reference Range Interpretation Comments Basophils (test code = 0.2 See_Comment [Aut omated message] The Basophils) system which ge nerated this result tra nsmitted reference range : <=1.0. The reference r jamaica was not used to int erpret this result as normal/abnormal . [facility] CenterPikhjofHMMQJPYQDH1630-30-41 09:42:00 Test Item Value Reference Range Interpretation Comments Segs-Bands # (test code = Segs-Bands #) 2.6 1.5-8.1 [facility] CenterWifsszqYDFHAOJXJT7323-71-51 09:42:00 Test Item Value Reference Range Interpretation Comments Monocytes (test code = Monocytes) 7.4 2.0-12.0 [facility] CenterEyikrpdPGKXZITNWW3568-37-06 09:42:00 Test Item Value Reference Range Interpretation Comments Lymphocytes # (test code = Lymphocytes 1.3 1.0-5.5 #) [facility] CenterDcgsakqRIMJWPSOLD5666-50-24 09:42:00 Test Item Value Reference Range Interpretation Comments Monocytes # (test code 0.3 See_Comment [Aut omated message] The = Monocytes #) system which generated this result tra nsmitted reference range : <=0.8. The reference r jamaica was not used to int erpret this result as normal/abnormal . [facility] CenterZkhoxphGZDIZNEJGT2273-01-47 09:42:00 Test Item Value Reference Range Interpretation Comments Eosinophils # (test code 0.1 See_Comment [A utomated message] The = Eosinophils #) system whic h generated this result tra nsmitted reference range : <=0.5. The reference r jamaica was not used to int erpret this result as normal/abnormal . [facility] CenterUcsyrgqMMVATJDLKT8603-94-96 09:42:00 Test Item Value Reference Range Interpretation Comments Basophils # (test code 0.0 See_Comment [Aut omated message] The = Basophils #) system which generated this result tra nsmitted reference range : <=0.2. The reference r jamaica was not used to int erpret this result as normal/abnormal . [facility] CenterTtngpuqYGDTYUGBPH8089-03-42 09:42:00 Test Item Value Reference Range Interpretation Comments Lymphocytes (test code = Lymphocytes) 30.7 20.0-40.0 [facility] CenterCftyelxZGVJKXQGYL3711-94-53 09:42:00 Test Item Value Reference Range Interpretation Comments Segs (test code = Segs) 60.1 45.0-75.0 [facility]2014-05-07 09:42:00 Test Item Value Reference Range Interpretation Comments Magnesium Lvl (test code = Magnesium 2.0 1.8-2.4 Lvl) [facility] CenterSqrmuriTMZHSHXPYR8712-82-42 09:42:00 Test Item Value Reference Range Interpretation Comments WBC (test code = WBC) 4.4 3.7-10.4 [facility] CenterXhddhxmLNGHPLMVIV1775-95-67 09:42:00 Test Item Value Reference Range Interpretation Comments RBC (test code = RBC) 3.80 4.20-5.40 [facility] CenterRmzptvfIBBTNMYFNG6031-72-31 09:42:00 Test Item Value Reference Range Interpretation Comments MCH (test code = MCH) 31.1 pg 27.0-31.0 [facility] CenterWnsswktUMWWHQFBLM2466-43-22 09:42:00 Test Item Value Reference Range Interpretation Comments Hgb (test code = Hgb) 11.8 12.0-16.0 [facility] CenterQdvrbsjRRQHZNXYFM2621-96-62 09:42:00 Test Item Value Reference Range Interpretation Comments Hct (test code = Hct) 34.5 36.0-48.0 [facility] CenterKdyxrxtIKAVHOHCNV7048-14-37 09:42:00 Test Item Value Reference Range Interpretation Comments MCV (test code = MCV) 90.6 81.0-99.0 [facility] CenterIwtnhpoAFUJTHGNII1549-04-77 09:42:00 Test Item Value Reference Range Interpretation Comments RDW (test code = RDW) 16.3 11.5-14.5 [facility] CenterMwjnxsdYNDHADXUXM7182-31-97 09:42:00 Test Item Value Reference Range Interpretation Comments MCHC (test code = MCHC) 34.3 32.0-36.0 [facility] CenterRfbkcczYEOLBFULYG1652-65-19 09:42:00 Test Item Value Reference Range Interpretation Comments Platelet (test code = Platelet) 167 133-450 [facility] CenterIgnjpalDNZATDIRHH3336-16-71 09:42:00 Test Item Value Reference Range Interpretation Comments MPV (test code = MPV) 7.9 7.4-10.4 [facility] CenterRovrbtyLRYKWDXRJY0082-55-03 09:42:00 Test Item Value Reference Range Interpretation Comments Eosinophils (test code = 1.6 See_Comment [A utomated message] The Eosinophils) system which ge nerated this result tra nsmitted reference range : <=4.0. The reference r jamaica was not used to int erpret this result as normal/abnormal . [facility] CenterOegryydVNETUZLBGJ7934-63-09 09:42:00 Test Item Value Reference Range Interpretation Comments Basophils (test code = 0.2 See_Comment [Aut omated message] The Basophils) system which ge nerated this result tra nsmitted reference range : <=1.0. The reference r jamaica was not used to int erpret this result as normal/abnormal . [facility] CenterVjdjienIJNOFRJCCI4840-26-48 09:42:00 Test Item Value Reference Range Interpretation Comments Segs-Bands # (test code = Segs-Bands #) 2.6 1.5-8.1 [facility] CenterMazeaeaHJHIRGXCKF5276-91-28 09:42:00 Test Item Value Reference Range Interpretation Comments Monocytes (test code = Monocytes) 7.4 2.0-12.0 [facility] CenterKqgkniwQJKETCEIKK5036-13-99 09:42:00 Test Item Value Reference Range Interpretation Comments Lymphocytes # (test code = Lymphocytes 1.3 1.0-5.5 #) [facility] CenterSnngmwoGVKSTUULWF6863-91-94 09:42:00 Test Item Value Reference Range Interpretation Comments Monocytes # (test code 0.3 See_Comment [Aut omated message] The = Monocytes #) system which generated this result tra nsmitted reference range : <=0.8. The reference r jamaica was not used to int erpret this result as normal/abnormal . [facility] CenterVokfcmkZVZFPDZZKI5909-85-39 09:42:00 Test Item Value Reference Range Interpretation Comments Eosinophils # (test code 0.1 See_Comment [A utomated message] The = Eosinophils #) system [facility] generated this result tra nsmitted reference range : <=0.5. The reference r jamaica was not used to int erpret this result as normal/abnormal . [facility] CenterZqtgdvpQRPCHNVQNH4559-31-68 09:42:00 Test Item Value Reference Range Interpretation Comments Basophils # (test code 0.0 See_Comment [Aut omated message] The = Basophils #) system which generated this result tra nsmitted reference range : <=0.2. The reference r jamaica was not used to int erpret this result as normal/abnormal . [facility] CenterTeuavjzIYUMXYSBWP3855-03-96 09:42:00 Test Item Value Reference Range Interpretation Comments Lymphocytes (test code = Lymphocytes) 30.7 20.0-40.0 [facility] CenterWlqfcykOSADBVVFEX1095-76-07 09:42:00 Test Item Value Reference Range Interpretation Comments Segs (test code = Segs) 60.1 45.0-75.0 [facility]2014-05-07 09:42:00 Test Item Value Reference Range Interpretation Comments Magnesium Lvl (test code = Magnesium 2.0 1.8-2.4 Lvl) [place] 290354-05-07 09:42:00 Test Item Value Reference Range Interpretation Comments eGFR (test code = eGFR) 113 [facility]2014-05-07 09:42:00 Test Item Value Reference Range Interpretation Comments BUN (test code = BUN) 4 7-22 [place] 290354-05-07 09:42:00 Test Item Value Reference Range Interpretation Comments Potassium Lvl (test code = Potassium 3.8 3.5-5.1 Lvl) [facility]2014-05-07 09:42:00 Test Item Value Reference Range Interpretation Comments Creatinine Lvl (test code = Creatinine 0.5 0.5-1.4 Lvl) [facility]2014-05-07 09:42:00 Test Item Value Reference Range Interpretation Comments Glucose Lvl (test code = Glucose Lvl) 94 70-99 [facility]2014-05-07 09:42:00 Test Item Value Reference Range Interpretation Comments Sodium Lvl (test code = Sodium Lvl) 142 135-145 [facility]2014-05-07 09:42:00 Test Item Value Reference Range Interpretation Comments Calcium Lvl (test code = Calcium Lvl) 8.7 8.5-10.5 [facility]2014-05-07 09:42:00 Test Item Value Reference Range Interpretation Comments Chloride Lvl (test code = Chloride Lvl) 105 95-109 [facility]2014-05-07 09:42:00 Test Item Value Reference Range Interpretation Comments CO2 (test code = CO2) 30 24-32 [facility]2014-05-07 09:42:00 Test Item Value Reference Range Interpretation Comments AGAP (test code = AGAP) 10.8 10.0-20.0 [facility]2014-05-05 12:13:00 Test Item Value Reference Range Interpretation Comments Magnesium Lvl (test code = Magnesium 1.8 1.8-2.4 Lvl) [facility]2014-05-05 12:13:00 Test Item Value Reference Range Interpretation Comments Phosphorus (test code = Phosphorus) 2.6 2.5-4.5 [place] 290354-05-05 12:13:00 Test Item Value Reference Range Interpretation Comments Globulin (test code = Globulin) 2.8 2.0-4.0 [facility]2014-05-05 12:13:00 Test Item Value Reference Range Interpretation Comments A/G Ratio (test code = A/G Ratio) 1.2 0.7-1.6 [place] 290354-05-05 12:13:00 Test Item Value Reference Range Interpretation Comments B/C Ratio (test code = B/C Ratio) 10 6-25 [place] 290354-05-05 12:13:00 Test Item Value Reference Range Interpretation Comments AGAP (test code = AGAP) 6.9 10.0-20.0 [facility]2014-05-05 12:13:00 Test Item Value Reference Range Interpretation Comments eGFR (test code = eGFR) 101 [facility]2014-05-05 12:13:00 Test Item Value Reference Range Interpretation Comments Glucose Lvl (test code = Glucose Lvl) 84 70-99 [facility]2014-05-05 12:13:00 Test Item Value Reference Range Interpretation Comments Potassium Lvl (test code = Potassium 3.9 3.5-5.1 Lvl) [facility]2014-05-05 12:13:00 Test Item Value Reference Range Interpretation Comments Sodium Lvl (test code = Sodium Lvl) 141 135-145 [facility]2014-05-05 12:13:00 Test Item Value Reference Range Interpretation Comments Creatinine Lvl (test code = Creatinine 0.7 0.5-1.4 Lvl) [facility]2014-05-05 12:13:00 Test Item Value Reference Range Interpretation Comments BUN (test code = BUN) 7 7-22 [facility]2014-05-05 12:13:00 Test Item Value Reference Range Interpretation Comments Bili Total (test code = Bili Total) 0.3 0.2-1.3 [facility]2014-05-05 12:13:00 Test Item Value Reference Range Interpretation Comments Alk Phos (test code = Alk Phos) 71 39-136 [facility]2014-05-05 12:13:00 Test Item Value Reference Range Interpretation Comments AST (test code = AST) 21 See_Comment [Auto mated message] The system which ge nerated this result transmit ulysses reference range : <=37. The reference range was not used to interpr et this result as sharron l/abnormal. [facility]2014-05-05 12:13:00 Test Item Value Reference Range Interpretation Comments ALT (test code = ALT) 20 See_Comment [Auto mated message] The system which ge nerated this result transmit ulysses reference range : <=65. The reference range was not used to interpr et this result as sharron l/abnormal. [place] 290354-05-05 12:13:00 Test Item Value Reference Range Interpretation Comments Total Protein (test code = Total 6.1 6.4-8.4 Protein) [facility]2014-05-05 12:13:00 Test Item Value Reference Range Interpretation Comments CO2 (test code = CO2) 33 24-32 [place] 290354-05-05 12:13:00 Test Item Value Reference Range Interpretation Comments Albumin Lvl (test code = Albumin Lvl) 3.3 3.5-5.0 [facility]2014-05-05 12:13:00 Test Item Value Reference Range Interpretation Comments Calcium Lvl (test code = Calcium Lvl) 8.4 8.5-10.5 [facility]2014-05-05 12:13:00 Test Item Value Reference Range Interpretation Comments Chloride Lvl (test code = Chloride Lvl) 105 95-109 [facility] CenterHzfinvfRGVUIRKPGN9197-07-98 12:13:00 Test Item Value Reference Range Interpretation Comments Basophils # (test code 0.0 See_Comment [Aut omated message] The = Basophils #) system which generated this result tra nsmitted reference range : <=0.2. The reference r jamaica was not used to int erpret this result as normal/abnormal . [facility] CenterDgzsvyzTILFQGIQKJ5576-38-01 12:13:00 Test Item Value Reference Range Interpretation Comments Segs (test code = Segs) 63.5 45.0-75.0 [facility] CenterIulsebqPHLISXHRNE0684-86-69 12:13:00 Test Item Value Reference Range Interpretation Comments Monocytes # (test code 0.3 See_Comment [Aut omated message] The = Monocytes #) system which generated this result tra nsmitted reference range : <=0.8. The reference r jamaica was not used to int erpret this result as normal/abnormal . [facility] CenterPakwrttRQYGTRIXOD4763-60-28 12:13:00 Test Item Value Reference Range Interpretation Comments Basophils (test code = 0.2 See_Comment [Aut omated message] The Basophils) system which ge nerated this result tra nsmitted reference range : <=1.0. The reference r jamaica was not used to int erpret this result as normal/abnormal . [facility] CenterEnwomtkSSBMADZRMB5164-37-94 12:13:00 Test Item Value Reference Range Interpretation Comments Lymphocytes # (test code = Lymphocytes 1.5 1.0-5.5 #) [facility] CenterDipphsmXLLMZMTYJY7090-40-98 12:13:00 Test Item Value Reference Range Interpretation Comments Segs-Bands # (test code = Segs-Bands #) 3.3 1.5-8.1 [facility] CenterOgqfpvaBEGAWRGMUJ3087-63-02 12:13:00 Test Item Value Reference Range Interpretation Comments Eosinophils # (test code 0.1 See_Comment [A utomated message] The = Eosinophils #) system [facility] h generated this result tra nsmitted reference range : <=0.5. The reference r jamaica was not used to int erpret this result as normal/abnormal . [facility] CenterKtvyrdpTKOXXDNNRI5392-61-56 12:13:00 Test Item Value Reference Range Interpretation Comments Lymphocytes (test code = Lymphocytes) 28.9 20.0-40.0 [facility] CenterPhjhzudJLVOOVHNOC4072-74-40 12:13:00 Test Item Value Reference Range Interpretation Comments Monocytes (test code = Monocytes) 6.2 2.0-12.0 [facility] CenterXocjgciGBQXVZQZRH3375-03-77 12:13:00 Test Item Value Reference Range Interpretation Comments Eosinophils (test code = 1.2 See_Comment [A utomated message] The Eosinophils) system which ge nerated this result tra nsmitted reference range : <=4.0. The reference r jamaica was not used to int erpret this result as normal/abnormal . [facility] CenterMrsbrmcRCPZPBVNYG2956-86-91 12:13:00 Test Item Value Reference Range Interpretation Comments MCHC (test code = MCHC) 34.3 32.0-36.0 [facility] CenterJspkccwRGRBDMPOGK2745-48-46 12:13:00 Test Item Value Reference Range Interpretation Comments RDW (test code = RDW) 16.5 11.5-14.5 [facility] CenterYbiljmsPBIFFMBBEV1527-35-66 12:13:00 Test Item Value Reference Range Interpretation Comments MCH (test code = MCH) 31.5 pg 27.0-31.0 [facility] CenterYlncqdbBMADYCCNDE6872-00-47 12:13:00 Test Item Value Reference Range Interpretation Comments MCV (test code = MCV) 91.9 81.0-99.0 [facility] CenterUxiwdknWTQHHFPYZC3077-96-02 12:13:00 Test Item Value Reference Range Interpretation Comments Platelet (test code = Platelet) 177 133-450 [facility] CenterZnrigjjHRMSKFXMAC6901-19-09 12:13:00 Test Item Value Reference Range Interpretation Comments MPV (test code = MPV) 7.9 7.4-10.4 [facility] CenterDghihezTRJWSLKFAE3289-53-90 12:13:00 Test Item Value Reference Range Interpretation Comments RBC (test code = RBC) 3.91 4.20-5.40 [facility] CenterUtkxxxhQQKSPDPKRY1284-77-06 12:13:00 Test Item Value Reference Range Interpretation Comments Hct (test code = Hct) 35.9 36.0-48.0 [facility] CenterCreyqsmJEAQUJZAXG5595-30-16 12:13:00 Test Item Value Reference Range Interpretation Comments Hgb (test code = Hgb) 12.3 12.0-16.0 [facility] CenterKbajtayQZZPXXLDWK3574-61-04 12:13:00 Test Item Value Reference Range Interpretation Comments WBC (test code = WBC) 5.1 3.7-10.4 [facility]2014-05-05 12:13:00 Test Item Value Reference Range Interpretation Comments Magnesium Lvl (test code = Magnesium 1.8 1.8-2.4 Lvl) [facility]2014-05-05 12:13:00 Test Item Value Reference Range Interpretation Comments Phosphorus (test code = Phosphorus) 2.6 2.5-4.5 [facility]2014-05-05 12:13:00 Test Item Value Reference Range Interpretation Comments Globulin (test code = Globulin) 2.8 2.0-4.0 [facility]2014-05-05 12:13:00 Test Item Value Reference Range Interpretation Comments A/G Ratio (test code = A/G Ratio) 1.2 0.7-1.6 [facility]2014-05-05 12:13:00 Test Item Value Reference Range Interpretation Comments B/C Ratio (test code = B/C Ratio) 10 6-25 [facility]2014-05-05 12:13:00 Test Item Value Reference Range Interpretation Comments AGAP (test code = AGAP) 6.9 10.0-20.0 [facility]2014-05-05 12:13:00 Test Item Value Reference Range Interpretation Comments eGFR (test code = eGFR) 101 [facility]2014-05-05 12:13:00 Test Item Value Reference Range Interpretation Comments Glucose Lvl (test code = Glucose Lvl) 84 70-99 [facility]2014-05-05 12:13:00 Test Item Value Reference Range Interpretation Comments Potassium Lvl (test code = Potassium 3.9 3.5-5.1 Lvl) [facility]2014-05-05 12:13:00 Test Item Value Reference Range Interpretation Comments Sodium Lvl (test code = Sodium Lvl) 141 135-145 [facility]2014-05-05 12:13:00 Test Item Value Reference Range Interpretation Comments Creatinine Lvl (test code = Creatinine 0.7 0.5-1.4 Lvl) [facility]2014-05-05 12:13:00 Test Item Value Reference Range Interpretation Comments BUN (test code = BUN) 7 7-22 [facility]2014-05-05 12:13:00 Test Item Value Reference Range Interpretation Comments Bili Total (test code = Bili Total) 0.3 0.2-1.3 [facility]2014-05-05 12:13:00 Test Item Value Reference Range Interpretation Comments Alk Phos (test code = Alk Phos) 71 39-136 [facility]2014-05-05 12:13:00 Test Item Value Reference Range Interpretation Comments AST (test code = AST) 21 See_Comment [Auto mated message] The system which ge nerated this result transmit ulysses reference range : <=37. The reference range was not used to interpr et this result as sharron l/abnormal. [facility]2014-05-05 12:13:00 Test Item Value Reference Range Interpretation Comments ALT (test code = ALT) 20 See_Comment [Auto mated message] The system which ge nerated this result transmit ulysses reference range : <=65. The reference range was not used to interpr et this result as sharron l/abnormal. [place] 290354-05-05 12:13:00 Test Item Value Reference Range Interpretation Comments Total Protein (test code = Total 6.1 6.4-8.4 Protein) [facility]2014-05-05 12:13:00 Test Item Value Reference Range Interpretation Comments CO2 (test code = CO2) 33 24-32 [facility]2014-05-05 12:13:00 Test Item Value Reference Range Interpretation Comments Albumin Lvl (test code = Albumin Lvl) 3.3 3.5-5.0 [facility]2014-05-05 12:13:00 Test Item Value Reference Range Interpretation Comments Calcium Lvl (test code = Calcium Lvl) 8.4 8.5-10.5 [facility]2014-05-05 12:13:00 Test Item Value Reference Range Interpretation Comments Chloride Lvl (test code = Chloride Lvl) 105 95-109 [facility] CenterOdncyovHQQSAHWCOI1195-75-50 12:13:00 Test Item Value Reference Range Interpretation Comments Basophils # (test code 0.0 See_Comment [Aut omated message] The = Basophils #) system which generated this result tra nsmitted reference range : <=0.2. The reference r jamaica was not used to int erpret this result as normal/abnormal . [facility] CenterFtmvtraDSMUTNOPOC7380-09-82 12:13:00 Test Item Value Reference Range Interpretation Comments Segs (test code = Segs) 63.5 45.0-75.0 [facility] CenterCwkwtliSNPVRHSYUA4461-82-50 12:13:00 Test Item Value Reference Range Interpretation Comments Monocytes # (test code 0.3 See_Comment [Aut omated message] The = Monocytes #) system which generated this result tra nsmitted reference range : <=0.8. The reference r jamaica was not used to int erpret this result as normal/abnormal . [facility]XkkpfjkZRAMUYVSIF8324-54-97 12:13:00 Test Item Value Reference Range Interpretation Comments Basophils (test code = 0.2 See_Comment [Aut omated message] The Basophils) system which ge nerated this result tra nsmitted reference range : <=1.0. The reference r jamaica was not used to int erpret this result as normal/abnormal . [facility] CenterXnbmzyxXHVBWWMDLY4025-04-68 12:13:00 Test Item Value Reference Range Interpretation Comments Lymphocytes # (test code = Lymphocytes 1.5 1.0-5.5 #) [facility] CenterUaynypsMXUICMATPB3256-50-05 12:13:00 Test Item Value Reference Range Interpretation Comments Segs-Bands # (test code = Segs-Bands #) 3.3 1.5-8.1 [facility] CenterMglvildWYZUGORKWY1067-40-88 12:13:00 Test Item Value Reference Range Interpretation Comments Eosinophils # (test code 0.1 See_Comment [A utomated message] The = Eosinophils #) system whic h generated this result tra nsmitted reference range : <=0.5. The reference r jamaica was not used to int erpret this result as normal/abnormal . [facility] CenterOrurgfaLVEYXGPMRQ9264-01-36 12:13:00 Test Item Value Reference Range Interpretation Comments Lymphocytes (test code = Lymphocytes) 28.9 20.0-40.0 [facility] CenterEjuiqdxYRYLUJBPBU3108-59-35 12:13:00 Test Item Value Reference Range Interpretation Comments Monocytes (test code = Monocytes) 6.2 2.0-12.0 [facility] CenterJocdsxqLVBYUFZGFL3295-19-89 12:13:00 Test Item Value Reference Range Interpretation Comments Eosinophils (test code = 1.2 See_Comment [A utomated message] The Eosinophils) system which ge nerated this result tra nsmitted reference range : <=4.0. The reference r jamaica was not used to int erpret this result as normal/abnormal . [facility] CenterUxqrvqaGQNXPEYCWP0873-10-48 12:13:00 Test Item Value Reference Range Interpretation Comments MCHC (test code = MCHC) 34.3 32.0-36.0 [facility] CenterGxjybzuQZBCYEWLSN0875-06-15 12:13:00 Test Item Value Reference Range Interpretation Comments RDW (test code = RDW) 16.5 11.5-14.5 [facility] CenterNcffbwwGJTXKHRPHY4414-80-36 12:13:00 Test Item Value Reference Range Interpretation Comments MCH (test code = MCH) 31.5 pg 27.0-31.0 [facility] CenterFlzceyoOQQXSYGIQT6073-37-04 12:13:00 Test Item Value Reference Range Interpretation Comments MCV (test code = MCV) 91.9 81.0-99.0 [facility] CenterCekwhumGXRQWOJHXW5136-95-39 12:13:00 Test Item Value Reference Range Interpretation Comments Platelet (test code = Platelet) 177 133-450 [facility] CenterTafjsqcAVRVKHHXHX4479-37-95 12:13:00 Test Item Value Reference Range Interpretation Comments MPV (test code = MPV) 7.9 7.4-10.4 [facility] CenterHyfmyjmXKQCLOBYZO3252-40-42 12:13:00 Test Item Value Reference Range Interpretation Comments RBC (test code = RBC) 3.91 4.20-5.40 [facility] CenterEuqdvelJUQBRXNJIQ1631-95-33 12:13:00 Test Item Value Reference Range Interpretation Comments Hct (test code = Hct) 35.9 36.0-48.0 [facility] CenterTnzqbdoDLPBPBBYVC1410-09-86 12:13:00 Test Item Value Reference Range Interpretation Comments Hgb (test code = Hgb) 12.3 12.0-16.0 [facility] CenterBdbfeefTQKXEHLWEV4212-99-12 12:13:00 Test Item Value Reference Range Interpretation Comments WBC (test code = WBC) 5.1 3.7-10.4 [facility]2014-05-05 12:13:00 Test Item Value Reference Range Interpretation Comments Magnesium Lvl (test code = Magnesium 1.8 1.8-2.4 Lvl) [facility]2014-05-05 12:13:00 Test Item Value Reference Range Interpretation Comments Phosphorus (test code = Phosphorus) 2.6 2.5-4.5 [facility]2014-05-05 12:13:00 Test Item Value Reference Range Interpretation Comments Globulin (test code = Globulin) 2.8 2.0-4.0 [facility]2014-05-05 12:13:00 Test Item Value Reference Range Interpretation Comments A/G Ratio (test code = A/G Ratio) 1.2 0.7-1.6 [facility]2014-05-05 12:13:00 Test Item Value Reference Range Interpretation Comments B/C Ratio (test code = B/C Ratio) 10 6-25 [place] 290354-05-05 12:13:00 Test Item Value Reference Range Interpretation Comments AGAP (test code = AGAP) 6.9 10.0-20.0 [facility]2014-05-05 12:13:00 Test Item Value Reference Range Interpretation Comments eGFR (test code = eGFR) 101 [facility]2014-05-05 12:13:00 Test Item Value Reference Range Interpretation Comments Glucose Lvl (test code = Glucose Lvl) 84 70-99 [facility]2014-05-05 12:13:00 Test Item Value Reference Range Interpretation Comments Potassium Lvl (test code = Potassium 3.9 3.5-5.1 Lvl) [facility]2014-05-05 12:13:00 Test Item Value Reference Range Interpretation Comments Sodium Lvl (test code = Sodium Lvl) 141 135-145 [facility]2014-05-05 12:13:00 Test Item Value Reference Range Interpretation Comments Creatinine Lvl (test code = Creatinine 0.7 0.5-1.4 Lvl) [facility]2014-05-05 12:13:00 Test Item Value Reference Range Interpretation Comments BUN (test code = BUN) 7 7-22 [facility]2014-05-05 12:13:00 Test Item Value Reference Range Interpretation Comments Bili Total (test code = Bili Total) 0.3 0.2-1.3 [facility]2014-05-05 12:13:00 Test Item Value Reference Range Interpretation Comments Alk Phos (test code = Alk Phos) 71 39-136 [facility]2014-05-05 12:13:00 Test Item Value Reference Range Interpretation Comments AST (test code = AST) 21 See_Comment [Auto mated message] The system which ge nerated this result transmit ulysses reference range : <=37. The reference range was not used to interpr et this result as sharron l/abnormal. [place] 290354-05-05 12:13:00 Test Item Value Reference Range Interpretation Comments ALT (test code = ALT) 20 See_Comment [Auto mated message] The system which ge nerated this result transmit ulysses reference range : <=65. The reference range was not used to interpr et this result as sharron l/abnormal. [place] 290354-05-05 12:13:00 Test Item Value Reference Range Interpretation Comments Total Protein (test code = Total 6.1 6.4-8.4 Protein) [facility]2014-05-05 12:13:00 Test Item Value Reference Range Interpretation Comments CO2 (test code = CO2) 33 24-32 [facility]2014-05-05 12:13:00 Test Item Value Reference Range Interpretation Comments Albumin Lvl (test code = Albumin Lvl) 3.3 3.5-5.0 [facility]2014-05-05 12:13:00 Test Item Value Reference Range Interpretation Comments Calcium Lvl (test code = Calcium Lvl) 8.4 8.5-10.5 [facility]2014-05-05 12:13:00 Test Item Value Reference Range Interpretation Comments Chloride Lvl (test code = Chloride Lvl) 105 95-109 [facility] CenterIdkoaatNISEGQOBVA7210-79-70 12:13:00 Test Item Value Reference Range Interpretation Comments Basophils # (test code 0.0 See_Comment [Aut omated message] The = Basophils #) system which generated this result tra nsmitted reference range : <=0.2. The reference r jamaica was not used to int erpret this result as normal/abnormal . [facility] CenterPfbgcbxKVAGMTFNVP3660-08-73 12:13:00 Test Item Value Reference Range Interpretation Comments Segs (test code = Segs) 63.5 45.0-75.0 [facility] CenterAsiokbuNDXNBVKTPD5757-51-40 12:13:00 Test Item Value Reference Range Interpretation Comments Monocytes # (test code 0.3 See_Comment [Aut omated message] The = Monocytes #) system which generated this result tra nsmitted reference range : <=0.8. The reference r jamaica was not used to int erpret this result as normal/abnormal . [facility] CenterMrxbrgkVJYSPYNEIM5113-10-83 12:13:00 Test Item Value Reference Range Interpretation Comments Basophils (test code = 0.2 See_Comment [Aut omated message] The Basophils) system which ge nerated this result tra nsmitted reference range : <=1.0. The reference r jamaica was not used to int erpret this result as normal/abnormal . [facility] CenterWcckjyeKWSPYWGCJP1005-02-85 12:13:00 Test Item Value Reference Range Interpretation Comments Lymphocytes # (test code = Lymphocytes 1.5 1.0-5.5 #) [facility] CenterVkffesfAUQJVMSFRK1208-41-93 12:13:00 Test Item Value Reference Range Interpretation Comments Segs-Bands # (test code = Segs-Bands #) 3.3 1.5-8.1 [facility] CenterLtvtdrnSRLVYEIWUG6706-09-86 12:13:00 Test Item Value Reference Range Interpretation Comments Eosinophils # (test code 0.1 See_Comment [A utomated message] The = Eosinophils #) system whic h generated this result tra nsmitted reference range : <=0.5. The reference r jamaica was not used to int erpret this result as normal/abnormal . [facility] CenterSvkprymYDYBKIKXPE9634-59-81 12:13:00 Test Item Value Reference Range Interpretation Comments Lymphocytes (test code = Lymphocytes) 28.9 20.0-40.0 [facility] CenterMpwaysbQOOAICELIF9208-95-15 12:13:00 Test Item Value Reference Range Interpretation Comments Monocytes (test code = Monocytes) 6.2 2.0-12.0 [facility] CenterVmuuskkAOCKRCAFXW5408-29-38 12:13:00 Test Item Value Reference Range Interpretation Comments Eosinophils (test code = 1.2 See_Comment [A utomated message] The Eosinophils) system which ge nerated this result tra nsmitted reference range : <=4.0. The reference r jamaica was not used to int erpret this result as normal/abnormal . [facility] CenterTpecgrkJULCEZJUJU5349-99-06 12:13:00 Test Item Value Reference Range Interpretation Comments MCHC (test code = MCHC) 34.3 32.0-36.0 [facility] CenterNvmsbjmEBJPAVJUXR7844-41-52 12:13:00 Test Item Value Reference Range Interpretation Comments RDW (test code = RDW) 16.5 11.5-14.5 [facility] CenterMazuqgaXWAMCTZYJH7454-80-33 12:13:00 Test Item Value Reference Range Interpretation Comments MCH (test code = MCH) 31.5 pg 27.0-31.0 [facility] CenterAejzxqfTCQKZMNAMI2404-64-86 12:13:00 Test Item Value Reference Range Interpretation Comments MCV (test code = MCV) 91.9 81.0-99.0 [facility] CenterDuoqziwVSILSRIWHZ0003-38-29 12:13:00 Test Item Value Reference Range Interpretation Comments Platelet (test code = Platelet) 177 133-450 [facility] CenterEfvfevkFZTSHGUERV4198-43-17 12:13:00 Test Item Value Reference Range Interpretation Comments MPV (test code = MPV) 7.9 7.4-10.4 [facility] CenterEudglxhIMMIOIYACB3156-15-36 12:13:00 Test Item Value Reference Range Interpretation Comments RBC (test code = RBC) 3.91 4.20-5.40 [facility] CenterFeytgbrOLJPEAOLEE8849-99-10 12:13:00 Test Item Value Reference Range Interpretation Comments Hct (test code = Hct) 35.9 36.0-48.0 [facility] CenterMmrpliiHPLFUSYYWH2524-87-78 12:13:00 Test Item Value Reference Range Interpretation Comments Hgb (test code = Hgb) 12.3 12.0-16.0 [facility] CenterKwjzxldNHWZQYADXC5536-04-33 12:13:00 Test Item Value Reference Range Interpretation Comments WBC (test code = WBC) 5.1 3.7-10.4 [facility]2014-05-05 12:13:00 Test Item Value Reference Range Interpretation Comments Magnesium Lvl (test code = Magnesium 1.8 1.8-2.4 Lvl) [facility]2014-05-05 12:13:00 Test Item Value Reference Range Interpretation Comments Phosphorus (test code = Phosphorus) 2.6 2.5-4.5 [facility]2014-05-05 12:13:00 Test Item Value Reference Range Interpretation Comments Globulin (test code = Globulin) 2.8 2.0-4.0 [facility]2014-05-05 12:13:00 Test Item Value Reference Range Interpretation Comments A/G Ratio (test code = A/G Ratio) 1.2 0.7-1.6 [facility]2014-05-05 12:13:00 Test Item Value Reference Range Interpretation Comments B/C Ratio (test code = B/C Ratio) 10 6-25 [place] [address]354-05-05 12:13:00 Test Item Value Reference Range Interpretation Comments AGAP (test code = AGAP) 6.9 10.0-20.0 [place] 290354-05-05 12:13:00 Test Item Value Reference Range Interpretation Comments eGFR (test code = eGFR) 101 [place] [address]-05-05 12:13:00 Test Item Value Reference Range Interpretation Comments Glucose Lvl (test code = Glucose Lvl) 84 70-99 [place] 290354-05-05 12:13:00 Test Item Value Reference Range Interpretation Comments Potassium Lvl (test code = Potassium 3.9 3.5-5.1 Lvl) [address]05-05 12:13:00 Test Item Value Reference Range Interpretation Comments Sodium Lvl (test code = Sodium Lvl) 141 135-145 [place] 290354-05-05 12:13:00 Test Item Value Reference Range Interpretation Comments Creatinine Lvl (test code = Creatinine 0.7 0.5-1.4 Lvl) [place] [address]354-05-05 12:13:00 Test Item Value Reference Range Interpretation Comments BUN (test code = BUN) 7 7-22 [place] [address]-05-05 12:13:00 Test Item Value Reference Range Interpretation Comments Bili Total (test code = Bili Total) 0.3 0.2-1.3 [place] [address]-05-05 12:13:00 Test Item Value Reference Range Interpretation Comments Alk Phos (test code = Alk Phos) 71 39-136 [place] 290354-05-05 12:13:00 Test Item Value Reference Range Interpretation Comments AST (test code = AST) 21 See_Comment [Auto mated message] The system which ge nerated this result transmit ulysses reference range : <=37. The reference range was not used to interpr et this result as sharron l/abnormal. [place] [address]-05-05 12:13:00 Test Item Value Reference Range Interpretation Comments ALT (test code = ALT) 20 See_Comment [Auto mated message] The system which ge nerated this result transmit ulysses reference range : <=65. The reference range was not used to interpr et this result as sharron l/abnormal. [facility]2014-05-05 12:13:00 Test Item Value Reference Range Interpretation Comments Total Protein (test code = Total 6.1 6.4-8.4 Protein) [facility]2014-05-05 12:13:00 Test Item Value Reference Range Interpretation Comments CO2 (test code = CO2) 33 24-32 [facility]2014-05-05 12:13:00 Test Item Value Reference Range Interpretation Comments Albumin Lvl (test code = Albumin Lvl) 3.3 3.5-5.0 [facility]2014-05-05 12:13:00 Test Item Value Reference Range Interpretation Comments Calcium Lvl (test code = Calcium Lvl) 8.4 8.5-10.5 [facility]2014-05-05 12:13:00 Test Item Value Reference Range Interpretation Comments Chloride Lvl (test code = Chloride Lvl) 105 95-109 [facility] CenterNpsrmfpWICOQFIVBD7066-72-14 12:13:00 Test Item Value Reference Range Interpretation Comments Basophils # (test code 0.0 See_Comment [Aut omated message] The = Basophils #) system which generated this result tra nsmitted reference range : <=0.2. The reference r jamaica was not used to int erpret this result as normal/abnormal . [facility] CenterPklbzsrBTNTUORXRB7974-15-64 12:13:00 Test Item Value Reference Range Interpretation Comments Segs (test code = Segs) 63.5 45.0-75.0 [facility] CenterFdlkyhyARTROXFMCF3883-32-15 12:13:00 Test Item Value Reference Range Interpretation Comments Monocytes # (test code 0.3 See_Comment [Aut omated message] The = Monocytes #) system which generated this result tra nsmitted reference range : <=0.8. The reference r jamaica was not used to int erpret this result as normal/abnormal . [facility] CenterOpwyuzqBJXKZPJNZS0267-15-35 12:13:00 Test Item Value Reference Range Interpretation Comments Basophils (test code = 0.2 See_Comment [Aut omated message] The Basophils) system which ge nerated this result tra nsmitted reference range : <=1.0. The reference r jamaica was not used to int erpret this result as normal/abnormal . [facility] CenterCatkmfwKPXPZQPVJX2610-15-41 12:13:00 Test Item Value Reference Range Interpretation Comments Lymphocytes # (test code = Lymphocytes 1.5 1.0-5.5 #) [facility] CenterYffsjlqEDGEMLIIGT7298-87-28 12:13:00 Test Item Value Reference Range Interpretation Comments Segs-Bands # (test code = Segs-Bands #) 3.3 1.5-8.1 [facility] CenterTpdvhpaLJNKZWZAZF5237-57-21 12:13:00 Test Item Value Reference Range Interpretation Comments Eosinophils # (test code 0.1 See_Comment [A utomated message] The = Eosinophils #) system whic h generated this result tra nsmitted reference range : <=0.5. The reference r jamaica was not used to int erpret this result as normal/abnormal . [facility] CenterJzftbsrLTSATPXOPV4742-30-41 12:13:00 Test Item Value Reference Range Interpretation Comments Lymphocytes (test code = Lymphocytes) 28.9 20.0-40.0 [facility] CenterZfznnxcNPKXZQYLDX4491-45-34 12:13:00 Test Item Value Reference Range Interpretation Comments Monocytes (test code = Monocytes) 6.2 2.0-12.0 [facility] CenterWjqywdoYSLKAGGJAW2517-57-13 12:13:00 Test Item Value Reference Range Interpretation Comments Eosinophils (test code = 1.2 See_Comment [A utomated message] The Eosinophils) system which ge nerated this result tra nsmitted reference range : <=4.0. The reference r jamaica was not used to int erpret this result as normal/abnormal . [facility] CenterTwttnqjGAUZHFTHHY2868-11-46 12:13:00 Test Item Value Reference Range Interpretation Comments MCHC (test code = MCHC) 34.3 32.0-36.0 [facility] CenterYhlqgzxTAXMKGNVCI7250-28-02 12:13:00 Test Item Value Reference Range Interpretation Comments RDW (test code = RDW) 16.5 11.5-14.5 [facility] CenterSiiomztISBDZHOVLN9349-66-39 12:13:00 Test Item Value Reference Range Interpretation Comments MCH (test code = MCH) 31.5 pg 27.0-31.0 [facility] CenterGlaxzwbRRMWERIZEU8327-88-73 12:13:00 Test Item Value Reference Range Interpretation Comments MCV (test code = MCV) 91.9 81.0-99.0 [facility] CenterXeqhhugFQZTXKPPEV7545-40-70 12:13:00 Test Item Value Reference Range Interpretation Comments Platelet (test code = Platelet) 177 133-450 [facility] CenterZozpxpeVERHZAUDMW3480-83-61 12:13:00 Test Item Value Reference Range Interpretation Comments MPV (test code = MPV) 7.9 7.4-10.4 [facility] CenterEqutdfdBFCVWYVWVI3596-47-32 12:13:00 Test Item Value Reference Range Interpretation Comments RBC (test code = RBC) 3.91 4.20-5.40 [facility] CenterJrqhphqKPEGFRISJR2964-67-72 12:13:00 Test Item Value Reference Range Interpretation Comments Hct (test code = Hct) 35.9 36.0-48.0 [facility] CenterBpooyljLSQAHIAYAR2669-24-23 12:13:00 Test Item Value Reference Range Interpretation Comments Hgb (test code = Hgb) 12.3 12.0-16.0 [facility] CenterDxfptxwLZDEUNFZSE6521-29-46 12:13:00 Test Item Value Reference Range Interpretation Comments WBC (test code = WBC) 5.1 3.7-10.4 [facility]2014-05-05 12:13:00 Test Item Value Reference Range Interpretation Comments Magnesium Lvl (test code = Magnesium 1.8 1.8-2.4 Lvl) [facility]2014-05-05 12:13:00 Test Item Value Reference Range Interpretation Comments Phosphorus (test code = Phosphorus) 2.6 2.5-4.5 [facility]2014-05-05 12:13:00 Test Item Value Reference Range Interpretation Comments Globulin (test code = Globulin) 2.8 2.0-4.0 [facility]2014-05-05 12:13:00 Test Item Value Reference Range Interpretation Comments A/G Ratio (test code = A/G Ratio) 1.2 0.7-1.6 [facility]2014-05-05 12:13:00 Test Item Value Reference Range Interpretation Comments B/C Ratio (test code = B/C Ratio) 10 6-25 [place] [address]354-05-05 12:13:00 Test Item Value Reference Range Interpretation Comments AGAP (test code = AGAP) 6.9 10.0-20.0 [facility]2014-05-05 12:13:00 Test Item Value Reference Range Interpretation Comments eGFR (test code = eGFR) 101 [facility]2014-05-05 12:13:00 Test Item Value Reference Range Interpretation Comments Glucose Lvl (test code = Glucose Lvl) 84 70-99 [facility]2014-05-05 12:13:00 Test Item Value Reference Range Interpretation Comments Potassium Lvl (test code = Potassium 3.9 3.5-5.1 Lvl) [facility]2014-05-05 12:13:00 Test Item Value Reference Range Interpretation Comments Sodium Lvl (test code = Sodium Lvl) 141 135-145 [facility]2014-05-05 12:13:00 Test Item Value Reference Range Interpretation Comments Creatinine Lvl (test code = Creatinine 0.7 0.5-1.4 Lvl) [facility]2014-05-05 12:13:00 Test Item Value Reference Range Interpretation Comments BUN (test code = BUN) 7 7-22 [place] [address]354-05-05 12:13:00 Test Item Value Reference Range Interpretation Comments Bili Total (test code = Bili Total) 0.3 0.2-1.3 [facility]2014-05-05 12:13:00 Test Item Value Reference Range Interpretation Comments Alk Phos (test code = Alk Phos) 71 39-136 [facility]2014-05-05 12:13:00 Test Item Value Reference Range Interpretation Comments AST (test code = AST) 21 See_Comment [Auto mated message] The system which ge nerated this result transmit ulysses reference range : <=37. The reference range was not used to interpr et this result as sharron l/abnormal. [place] [address]354-05-05 12:13:00 Test Item Value Reference Range Interpretation Comments ALT (test code = ALT) 20 See_Comment [Auto mated message] The system which ge nerated this result transmit ulysses reference range : <=65. The reference range was not used to interpr et this result as sharron l/abnormal. [place] [address]354-05-05 12:13:00 Test Item Value Reference Range Interpretation Comments Total Protein (test code = Total 6.1 6.4-8.4 Protein) [facility]2014-05-05 12:13:00 Test Item Value Reference Range Interpretation Comments CO2 (test code = CO2) 33 24-32 [facility]2014-05-05 12:13:00 Test Item Value Reference Range Interpretation Comments Albumin Lvl (test code = Albumin Lvl) 3.3 3.5-5.0 [facility]2014-05-05 12:13:00 Test Item Value Reference Range Interpretation Comments Calcium Lvl (test code = Calcium Lvl) 8.4 8.5-10.5 [facility]2014-05-05 12:13:00 Test Item Value Reference Range Interpretation Comments Chloride Lvl (test code = Chloride Lvl) 105 95-109 [facility] CenterTalqscaKJMQKFRKRU5750-75-61 12:13:00 Test Item Value Reference Range Interpretation Comments Basophils # (test code 0.0 See_Comment [Aut omated message] The = Basophils #) system which generated this result tra nsmitted reference range : <=0.2. The reference r jamaica was not used to int erpret this result as normal/abnormal . [facility] CenterGkoicetCOYSSXBDAY8280-31-23 12:13:00 Test Item Value Reference Range Interpretation Comments Segs (test code = Segs) 63.5 45.0-75.0 [facility] CenterQplisxxAVOSLEOCVG0447-71-73 12:13:00 Test Item Value Reference Range Interpretation Comments Monocytes # (test code 0.3 See_Comment [Aut omated message] The = Monocytes #) system which generated this result tra nsmitted reference range : <=0.8. The reference r jamaica was not used to int erpret this result as normal/abnormal . [facility] CenterEeclzryBRVDTDDZBB8102-14-32 12:13:00 Test Item Value Reference Range Interpretation Comments Basophils (test code = 0.2 See_Comment [Aut omated message] The Basophils) system which ge nerated this result tra nsmitted reference range : <=1.0. The reference r jamaica was not used to int erpret this result as normal/abnormal . [facility] CenterLeqlynbUXPTIZNWCF6897-15-18 12:13:00 Test Item Value Reference Range Interpretation Comments Lymphocytes # (test code = Lymphocytes 1.5 1.0-5.5 #) [facility] CenterPfzlmatDGGAGGLAVY3599-48-82 12:13:00 Test Item Value Reference Range Interpretation Comments Segs-Bands # (test code = Segs-Bands #) 3.3 1.5-8.1 [facility] CenterTqmluylATUMWHLKHS4654-40-45 12:13:00 Test Item Value Reference Range Interpretation Comments Eosinophils # (test code 0.1 See_Comment [A utomated message] The = Eosinophils #) system whic h generated this result tra nsmitted reference range : <=0.5. The reference r jamaica was not used to int erpret this result as normal/abnormal . [facility] CenterAxxvhaySECYCBVSBK2455-42-35 12:13:00 Test Item Value Reference Range Interpretation Comments Lymphocytes (test code = Lymphocytes) 28.9 20.0-40.0 [facility] CenterIyuhclnLDXTMPZYSO7002-00-94 12:13:00 Test Item Value Reference Range Interpretation Comments Monocytes (test code = Monocytes) 6.2 2.0-12.0 [facility] CenterVbfojcqVFERRYWJZY8699-75-48 12:13:00 Test Item Value Reference Range Interpretation Comments Eosinophils (test code = 1.2 See_Comment [A utomated message] The Eosinophils) system which ge nerated this result tra nsmitted reference range : <=4.0. The reference r jamaica was not used to int erpret this result as normal/abnormal . [facility] CenterHjvrlpvZNWRIVQXZE5994-87-94 12:13:00 Test Item Value Reference Range Interpretation Comments MCHC (test code = MCHC) 34.3 32.0-36.0 [facility] CenterQtaicriGTHRGVYJYK8250-79-03 12:13:00 Test Item Value Reference Range Interpretation Comments RDW (test code = RDW) 16.5 11.5-14.5 [facility] CenterVdytfpdXCJGLOSCIA0494-22-85 12:13:00 Test Item Value Reference Range Interpretation Comments MCH (test code = MCH) 31.5 pg 27.0-31.0 [facility] CenterWjcfxjhSZBNKIFJSR6486-48-46 12:13:00 Test Item Value Reference Range Interpretation Comments MCV (test code = MCV) 91.9 81.0-99.0 [facility] CenterMfiyodaFTDTOVRFBU4527-04-11 12:13:00 Test Item Value Reference Range Interpretation Comments Platelet (test code = Platelet) 177 133-450 [facility] CenterFrocwekUEQHWNKUAZ2957-94-05 12:13:00 Test Item Value Reference Range Interpretation Comments MPV (test code = MPV) 7.9 7.4-10.4 [facility] CenterSypzykzQWRKNGRTHR0050-44-89 12:13:00 Test Item Value Reference Range Interpretation Comments RBC (test code = RBC) 3.91 4.20-5.40 [facility] CenterSybwouiGZAVMRGHUM1116-86-20 12:13:00 Test Item Value Reference Range Interpretation Comments Hct (test code = Hct) 35.9 36.0-48.0 [facility] CenterVfmvkuaQMHEZUCWKP1296-82-58 12:13:00 Test Item Value Reference Range Interpretation Comments Hgb (test code = Hgb) 12.3 12.0-16.0 [facility] CenterDjooaycQZJHNPITJZ5801-02-99 12:13:00 Test Item Value Reference Range Interpretation Comments WBC (test code = WBC) 5.1 3.7-10.4 [facility]2014-05-05 12:13:00 Test Item Value Reference Range Interpretation Comments Magnesium Lvl (test code = Magnesium 1.8 1.8-2.4 Lvl) [facility]2014-05-05 12:13:00 Test Item Value Reference Range Interpretation Comments Phosphorus (test code = Phosphorus) 2.6 2.5-4.5 [facility]2014-05-05 12:13:00 Test Item Value Reference Range Interpretation Comments Globulin (test code = Globulin) 2.8 2.0-4.0 [facility]2014-05-05 12:13:00 Test Item Value Reference Range Interpretation Comments A/G Ratio (test code = A/G Ratio) 1.2 0.7-1.6 [facility]2014-05-05 12:13:00 Test Item Value Reference Range Interpretation Comments B/C Ratio (test code = B/C Ratio) 10 6-25 [facility]2014-05-05 12:13:00 Test Item Value Reference Range Interpretation Comments AGAP (test code = AGAP) 6.9 10.0-20.0 [facility]2014-05-05 12:13:00 Test Item Value Reference Range Interpretation Comments eGFR (test code = eGFR) 101 [facility]2014-05-05 12:13:00 Test Item Value Reference Range Interpretation Comments Glucose Lvl (test code = Glucose Lvl) 84 70-99 [facility]2014-05-05 12:13:00 Test Item Value Reference Range Interpretation Comments Potassium Lvl (test code = Potassium 3.9 3.5-5.1 Lvl) [facility]2014-05-05 12:13:00 Test Item Value Reference Range Interpretation Comments Sodium Lvl (test code = Sodium Lvl) 141 135-145 [place] 290354-05-05 12:13:00 Test Item Value Reference Range Interpretation Comments Creatinine Lvl (test code = Creatinine 0.7 0.5-1.4 Lvl) [facility]2014-05-05 12:13:00 Test Item Value Reference Range Interpretation Comments BUN (test code = BUN) 7 7-22 [place] 290354-05-05 12:13:00 Test Item Value Reference Range Interpretation Comments Bili Total (test code = Bili Total) 0.3 0.2-1.3 [place] 290354-05-05 12:13:00 Test Item Value Reference Range Interpretation Comments Alk Phos (test code = Alk Phos) 71 39-136 [facility]2014-05-05 12:13:00 Test Item Value Reference Range Interpretation Comments AST (test code = AST) 21 See_Comment [Auto mated message] The system which ge nerated this result transmit ulysses reference range : <=37. The reference range was not used to interpr et this result as sharron l/abnormal. [place] 290354-05-05 12:13:00 Test Item Value Reference Range Interpretation Comments ALT (test code = ALT) 20 See_Comment [Auto mated message] The system which ge nerated this result transmit ulysses reference range : <=65. The reference range was not used to interpr et this result as sharron l/abnormal. [place] 290354-05-05 12:13:00 Test Item Value Reference Range Interpretation Comments Total Protein (test code = Total 6.1 6.4-8.4 Protein) [facility]2014-05-05 12:13:00 Test Item Value Reference Range Interpretation Comments CO2 (test code = CO2) 33 24-32 [place] 290354-05-05 12:13:00 Test Item Value Reference Range Interpretation Comments Albumin Lvl (test code = Albumin Lvl) 3.3 3.5-5.0 [facility]2014-05-05 12:13:00 Test Item Value Reference Range Interpretation Comments Calcium Lvl (test code = Calcium Lvl) 8.4 8.5-10.5 [facility]2014-05-05 12:13:00 Test Item Value Reference Range Interpretation Comments Chloride Lvl (test code = Chloride Lvl) 105 95-109 [facility] CenterSjgygobKVTYWRGLRH1573-14-37 12:13:00 Test Item Value Reference Range Interpretation Comments Basophils # (test code 0.0 See_Comment [Aut omated message] The = Basophils #) system which generated this result tra nsmitted reference range : <=0.2. The reference r jamaica was not used to int erpret this result as normal/abnormal . [facility] CenterXplygpqWJMJQITUMU5876-28-99 12:13:00 Test Item Value Reference Range Interpretation Comments Segs (test code = Segs) 63.5 45.0-75.0 [facility] CenterPrwmmzhLWXHVCIGLN2049-28-25 12:13:00 Test Item Value Reference Range Interpretation Comments Monocytes # (test code 0.3 See_Comment [Aut omated message] The = Monocytes #) system which generated this result tra nsmitted reference range : <=0.8. The reference r jamaica was not used to int erpret this result as normal/abnormal . [facility] CenterTpvqwkmRKLHEXYQHO6810-69-51 12:13:00 Test Item Value Reference Range Interpretation Comments Basophils (test code = 0.2 See_Comment [Aut omated message] The Basophils) system which ge nerated this result tra nsmitted reference range : <=1.0. The reference r jamaica was not used to int erpret this result as normal/abnormal . [facility] CenterGatavrsTUNNYUUSAP1263-84-03 12:13:00 Test Item Value Reference Range Interpretation Comments Lymphocytes # (test code = Lymphocytes 1.5 1.0-5.5 #) [facility] CenterDbckkcuEZLFPPCEZY5321-26-80 12:13:00 Test Item Value Reference Range Interpretation Comments Segs-Bands # (test code = Segs-Bands #) 3.3 1.5-8.1 [facility] CenterKknrhfwDFZHMWFLJL1482-29-86 12:13:00 Test Item Value Reference Range Interpretation Comments Eosinophils # (test code 0.1 See_Comment [A utomated message] The = Eosinophils #) system whic h generated this result tra nsmitted reference range : <=0.5. The reference r jamaica was not used to int erpret this result as normal/abnormal . [facility] CenterEjeibquCODQKYRZKS4593-47-72 12:13:00 Test Item Value Reference Range Interpretation Comments Lymphocytes (test code = Lymphocytes) 28.9 20.0-40.0 [facility] CenterGvmryldDQGGAYENNF7358-74-42 12:13:00 Test Item Value Reference Range Interpretation Comments Monocytes (test code = Monocytes) 6.2 2.0-12.0 [facility] CenterNzyrqepSTVPDDSYPE7176-12-26 12:13:00 Test Item Value Reference Range Interpretation Comments Eosinophils (test code = 1.2 See_Comment [A utomated message] The Eosinophils) system which ge nerated this result tra nsmitted reference range : <=4.0. The reference r jamaica was not used to int erpret this result as normal/abnormal . [facility] CenterCyomvnrMQMDIPITLA7036-58-85 12:13:00 Test Item Value Reference Range Interpretation Comments MCHC (test code = MCHC) 34.3 32.0-36.0 [facility] CenterUamtbjeSAKJNLDTCT6558-33-71 12:13:00 Test Item Value Reference Range Interpretation Comments RDW (test code = RDW) 16.5 11.5-14.5 [facility] CenterUalvwlsLDFKESCHTE6411-97-51 12:13:00 Test Item Value Reference Range Interpretation Comments MCH (test code = MCH) 31.5 pg 27.0-31.0 [facility] CenterTwtwtvfZQDWDNDITC6703-17-06 12:13:00 Test Item Value Reference Range Interpretation Comments MCV (test code = MCV) 91.9 81.0-99.0 [facility] CenterPxahvkiIFYABDBJLN3890-17-09 12:13:00 Test Item Value Reference Range Interpretation Comments Platelet (test code = Platelet) 177 133-450 [facility] CenterHbqppiyCRYAJYXCWR1904-02-99 12:13:00 Test Item Value Reference Range Interpretation Comments MPV (test code = MPV) 7.9 7.4-10.4 [facility] CenterNppbbyaBEBUDGHKXO9364-99-90 12:13:00 Test Item Value Reference Range Interpretation Comments RBC (test code = RBC) 3.91 4.20-5.40 [facility] CenterRpenxhqHQBQKRKALA7371-43-03 12:13:00 Test Item Value Reference Range Interpretation Comments Hct (test code = Hct) 35.9 36.0-48.0 [facility] CenterQimsiygOGSJPVHEGV0706-08-84 12:13:00 Test Item Value Reference Range Interpretation Comments Hgb (test code = Hgb) 12.3 12.0-16.0 [facility] CenterEoidtirABJJMLSUQN1360-95-09 12:13:00 Test Item Value Reference Range Interpretation Comments WBC (test code = WBC) 5.1 3.7-10.4 [facility]2014-05-05 12:13:00 Test Item Value Reference Range Interpretation Comments Magnesium Lvl (test code = Magnesium 1.8 1.8-2.4 Lvl) [facility]2014-05-05 12:13:00 Test Item Value Reference Range Interpretation Comments Phosphorus (test code = Phosphorus) 2.6 2.5-4.5 [facility]2014-05-05 12:13:00 Test Item Value Reference Range Interpretation Comments Globulin (test code = Globulin) 2.8 2.0-4.0 [facility]2014-05-05 12:13:00 Test Item Value Reference Range Interpretation Comments A/G Ratio (test code = A/G Ratio) 1.2 0.7-1.6 [facility]2014-05-05 12:13:00 Test Item Value Reference Range Interpretation Comments B/C Ratio (test code = B/C Ratio) 10 6-25 [facility]2014-05-05 12:13:00 Test Item Value Reference Range Interpretation Comments AGAP (test code = AGAP) 6.9 10.0-20.0 [facility]2014-05-05 12:13:00 Test Item Value Reference Range Interpretation Comments eGFR (test code = eGFR) 101 [facility]2014-05-05 12:13:00 Test Item Value Reference Range Interpretation Comments Glucose Lvl (test code = Glucose Lvl) 84 70-99 [facility]2014-05-05 12:13:00 Test Item Value Reference Range Interpretation Comments Potassium Lvl (test code = Potassium 3.9 3.5-5.1 Lvl) [facility]2014-05-05 12:13:00 Test Item Value Reference Range Interpretation Comments Sodium Lvl (test code = Sodium Lvl) 141 135-145 [facility]2014-05-05 12:13:00 Test Item Value Reference Range Interpretation Comments Creatinine Lvl (test code = Creatinine 0.7 0.5-1.4 Lvl) [facility]2014-05-05 12:13:00 Test Item Value Reference Range Interpretation Comments BUN (test code = BUN) 7 7-22 [place] 290354-05-05 12:13:00 Test Item Value Reference Range Interpretation Comments Bili Total (test code = Bili Total) 0.3 0.2-1.3 [facility]2014-05-05 12:13:00 Test Item Value Reference Range Interpretation Comments Alk Phos (test code = Alk Phos) 71 39-136 [facility]2014-05-05 12:13:00 Test Item Value Reference Range Interpretation Comments AST (test code = AST) 21 See_Comment [Auto mated message] The system which ge nerated this result transmit ulysses reference range : <=37. The reference range was not used to interpr et this result as sharron l/abnormal. [facility]2014-05-05 12:13:00 Test Item Value Reference Range Interpretation Comments ALT (test code = ALT) 20 See_Comment [Auto mated message] The system which ge nerated this result transmit ulysses reference range : <=65. The reference range was not used to interpr et this result as sharron l/abnormal. [facility]2014-05-05 12:13:00 Test Item Value Reference Range Interpretation Comments Total Protein (test code = Total 6.1 6.4-8.4 Protein) [facility]2014-05-05 12:13:00 Test Item Value Reference Range Interpretation Comments CO2 (test code = CO2) 33 24-32 [place] 290354-05-05 12:13:00 Test Item Value Reference Range Interpretation Comments Albumin Lvl (test code = Albumin Lvl) 3.3 3.5-5.0 [place] 290354-05-05 12:13:00 Test Item Value Reference Range Interpretation Comments Calcium Lvl (test code = Calcium Lvl) 8.4 8.5-10.5 [place] 290354-05-05 12:13:00 Test Item Value Reference Range Interpretation Comments Chloride Lvl (test code = Chloride Lvl) 105 95-109 [facility] CenterSrmbkoqWXXIPBTWIP8017-42-52 12:13:00 Test Item Value Reference Range Interpretation Comments Basophils # (test code 0.0 See_Comment [Aut omated message] The = Basophils #) system which generated this result tra nsmitted reference range : <=0.2. The reference r jamaica was not used to int erpret this result as normal/abnormal . [facility] CenterXbpphpeRGJESGPFOT0403-55-84 12:13:00 Test Item Value Reference Range Interpretation Comments Segs (test code = Segs) 63.5 45.0-75.0 [facility] CenterWrczcrcNCJJGBMDRJ7084-79-02 12:13:00 Test Item Value Reference Range Interpretation Comments Monocytes # (test code 0.3 See_Comment [Aut omated message] The = Monocytes #) system which generated this result tra nsmitted reference range : <=0.8. The reference r jamaica was not used to int erpret this result as normal/abnormal . [facility] CenterTafdoagWYSPADHABJ4919-35-67 12:13:00 Test Item Value Reference Range Interpretation Comments Basophils (test code = 0.2 See_Comment [Aut omated message] The Basophils) system which ge nerated this result tra nsmitted reference range : <=1.0. The reference r jamaica was not used to int erpret this result as normal/abnormal . [facility] CenterRrpbxcrEDOQHILOKX4794-10-23 12:13:00 Test Item Value Reference Range Interpretation Comments Lymphocytes # (test code = Lymphocytes 1.5 1.0-5.5 #) [facility] CenterQsayqovVZIZUCKWMO3263-29-96 12:13:00 Test Item Value Reference Range Interpretation Comments Segs-Bands # (test code = Segs-Bands #) 3.3 1.5-8.1 [facility] CenterIwjtgehZZIBOLQNCX8653-91-30 12:13:00 Test Item Value Reference Range Interpretation Comments Eosinophils # (test code 0.1 See_Comment [A utomated message] The = Eosinophils #) system whic h generated this result tra nsmitted reference range : <=0.5. The reference r jamaica was not used to int erpret this result as normal/abnormal . [facility] CenterYkjtfliMDOUDGBRHX4923-24-31 12:13:00 Test Item Value Reference Range Interpretation Comments Lymphocytes (test code = Lymphocytes) 28.9 20.0-40.0 [facility] CenterBkecttfTBSPEMGGFD7916-94-99 12:13:00 Test Item Value Reference Range Interpretation Comments Monocytes (test code = Monocytes) 6.2 2.0-12.0 [facility] CenterAkeeniuUWTJZADUAE0775-52-07 12:13:00 Test Item Value Reference Range Interpretation Comments Eosinophils (test code = 1.2 See_Comment [A utomated message] The Eosinophils) system which ge nerated this result tra nsmitted reference range : <=4.0. The reference r jamaica was not used to int erpret this result as normal/abnormal . [facility] CenterQwyfdlwQBHCOAFPCP6681-29-51 12:13:00 Test Item Value Reference Range Interpretation Comments MCHC (test code = MCHC) 34.3 32.0-36.0 [facility] CenterQaigcnoWFHTNDXSRW9710-33-53 12:13:00 Test Item Value Reference Range Interpretation Comments RDW (test code = RDW) 16.5 11.5-14.5 [facility] CenterYwsatgkASGYUQNJQE6142-03-91 12:13:00 Test Item Value Reference Range Interpretation Comments MCH (test code = MCH) 31.5 pg 27.0-31.0 [facility] CenterCwfieixBKKPEJOUHO8324-03-10 12:13:00 Test Item Value Reference Range Interpretation Comments MCV (test code = MCV) 91.9 81.0-99.0 [facility] CenterIdigptnLWQLCCXPLT5450-34-69 12:13:00 Test Item Value Reference Range Interpretation Comments Platelet (test code = Platelet) 177 133-450 [facility] CenterXvuophwCYDWIUKCKA8758-19-73 12:13:00 Test Item Value Reference Range Interpretation Comments MPV (test code = MPV) 7.9 7.4-10.4 [facility] CenterJlhhbtxIYKOSMHMUR6568-28-34 12:13:00 Test Item Value Reference Range Interpretation Comments RBC (test code = RBC) 3.91 4.20-5.40 [facility] CenterCpsnmeqTJPUQDDYHM2948-55-50 12:13:00 Test Item Value Reference Range Interpretation Comments Hct (test code = Hct) 35.9 36.0-48.0 [facility] CenterZpwbppzOWTDCOZCIU9254-45-13 12:13:00 Test Item Value Reference Range Interpretation Comments Hgb (test code = Hgb) 12.3 12.0-16.0 [facility]AW[facility]WH[facility] 12:13:00 Test Item Value Reference Range Interpretation Comments WBC (test code = WBC) 5.1 3.7-10.4 [facility]2014-05-05 12:13:00 Test Item Value Reference Range Interpretation Comments Magnesium Lvl (test code = Magnesium 1.8 1.8-2.4 Lvl) [facility]2014-05-05 12:13:00 Test Item Value Reference Range Interpretation Comments Phosphorus (test code = Phosphorus) 2.6 2.5-4.5 [facility]2014-05-05 12:13:00 Test Item Value Reference Range Interpretation Comments Globulin (test code = Globulin) 2.8 2.0-4.0 [facility]2014-05-05 12:13:00 Test Item Value Reference Range Interpretation Comments A/G Ratio (test code = A/G Ratio) 1.2 0.7-1.6 [facility]2014-05-05 12:13:00 Test Item Value Reference Range Interpretation Comments B/C Ratio (test code = B/C Ratio) 10 6-25 [facility]2014-05-05 12:13:00 Test Item Value Reference Range Interpretation Comments AGAP (test code = AGAP) 6.9 10.0-20.0 [facility]2014-05-05 12:13:00 Test Item Value Reference Range Interpretation Comments eGFR (test code = eGFR) 101 [facility]2014-05-05 12:13:00 Test Item Value Reference Range Interpretation Comments Glucose Lvl (test code = Glucose Lvl) 84 70-99 [facility]2014-05-05 12:13:00 Test Item Value Reference Range Interpretation Comments Potassium Lvl (test code = Potassium 3.9 3.5-5.1 Lvl) [facility]2014-05-05 12:13:00 Test Item Value Reference Range Interpretation Comments Sodium Lvl (test code = Sodium Lvl) 141 135-145 [facility]2014-05-05 12:13:00 Test Item Value Reference Range Interpretation Comments Creatinine Lvl (test code = Creatinine 0.7 0.5-1.4 Lvl) [facility]2014-05-05 12:13:00 Test Item Value Reference Range Interpretation Comments BUN (test code = BUN) 7 7-22 [facility]2014-05-05 12:13:00 Test Item Value Reference Range Interpretation Comments Bili Total (test code = Bili Total) 0.3 0.2-1.3 [facility]2014-05-05 12:13:00 Test Item Value Reference Range Interpretation Comments Alk Phos (test code = Alk Phos) 71 39-136 [facility]2014-05-05 12:13:00 Test Item Value Reference Range Interpretation Comments AST (test code = AST) 21 See_Comment [Auto mated message] The system which ge nerated this result transmit ulysses reference range : <=37. The reference range was not used to interpr et this result as sharron l/abnormal. [facility]2014-05-05 12:13:00 Test Item Value Reference Range Interpretation Comments ALT (test code = ALT) 20 See_Comment [Auto mated message] The system which ge nerated this result transmit ulysses reference range : <=65. The reference range was not used to interpr et this result as sharron l/abnormal. [facility]2014-05-05 12:13:00 Test Item Value Reference Range Interpretation Comments Total Protein (test code = Total 6.1 6.4-8.4 Protein) [facility]2014-05-05 12:13:00 Test Item Value Reference Range Interpretation Comments CO2 (test code = CO2) 33 24-32 [facility]2014-05-05 12:13:00 Test Item Value Reference Range Interpretation Comments Albumin Lvl (test code = Albumin Lvl) 3.3 3.5-5.0 [facility]2014-05-05 12:13:00 Test Item Value Reference Range Interpretation Comments Calcium Lvl (test code = Calcium Lvl) 8.4 8.5-10.5 [facility]2014-05-05 12:13:00 Test Item Value Reference Range Interpretation Comments Chloride Lvl (test code = Chloride Lvl) 105 95-109 [facility] CenterTnnqsmtDYHBOSRVUK8770-34-96 12:13:00 Test Item Value Reference Range Interpretation Comments Basophils # (test code 0.0 See_Comment [Aut omated message] The = Basophils #) system which generated this result tra nsmitted reference range : <=0.2. The reference r jamaica was not used to int erpret this result as normal/abnormal . [facility] CenterEgvutxuOYCLFGMDQV0658-04-72 12:13:00 Test Item Value Reference Range Interpretation Comments Segs (test code = Segs) 63.5 45.0-75.0 [facility] CenterQayxgmiTKTINDNAZH7679-64-26 12:13:00 Test Item Value Reference Range Interpretation Comments Monocytes # (test code 0.3 See_Comment [Aut omated message] The = Monocytes #) system which generated this result tra nsmitted reference range : <=0.8. The reference r jamaica was not used to int erpret this result as normal/abnormal . [facility] CenterXhcifcnYSXGVPYFZT2910-97-76 12:13:00 Test Item Value Reference Range Interpretation Comments Basophils (test code = 0.2 See_Comment [Aut omated message] The Basophils) system which ge nerated this result tra nsmitted reference range : <=1.0. The reference r jamaica was not used to int erpret this result as normal/abnormal . [facility] CenterFrfvdwqNTBWDJWYAR6394-14-91 12:13:00 Test Item Value Reference Range Interpretation Comments Lymphocytes # (test code = Lymphocytes 1.5 1.0-5.5 #) [facility] CenterNjwgpzbFEDBYWMHAM6253-26-70 12:13:00 Test Item Value Reference Range Interpretation Comments Segs-Bands # (test code = Segs-Bands #) 3.3 1.5-8.1 [facility] CenterBtgajndNMZUKAMAIN9894-05-48 12:13:00 Test Item Value Reference Range Interpretation Comments Eosinophils # (test code 0.1 See_Comment [A utomated message] The = Eosinophils #) system whic h generated this result tra nsmitted reference range : <=0.5. The reference r jamaica was not used to int erpret this result as normal/abnormal . [facility] CenterYncdgkeXZACLMLWOM7368-36-15 12:13:00 Test Item Value Reference Range Interpretation Comments Lymphocytes (test code = Lymphocytes) 28.9 20.0-40.0 [facility] CenterMhumosgPFBTWHKZQR7655-10-37 12:13:00 Test Item Value Reference Range Interpretation Comments Monocytes (test code = Monocytes) 6.2 2.0-12.0 [facility] CenterJtbcgawDKLJRXMMNN9014-45-15 12:13:00 Test Item Value Reference Range Interpretation Comments Eosinophils (test code = 1.2 See_Comment [A utomated message] The Eosinophils) system which ge nerated this result tra nsmitted reference range : <=4.0. The reference r jamaica was not used to int erpret this result as normal/abnormal . [facility] CenterZrzvpxwZEVXEIFFRF8659-51-42 12:13:00 Test Item Value Reference Range Interpretation Comments MCHC (test code = MCHC) 34.3 32.0-36.0 [facility] CenterQitftqoGMEDIZDEIQ7318-74-31 12:13:00 Test Item Value Reference Range Interpretation Comments RDW (test code = RDW) 16.5 11.5-14.5 [facility] CenterRimxwhpEWPZQGCZJY9434-88-53 12:13:00 Test Item Value Reference Range Interpretation Comments MCH (test code = MCH) 31.5 pg 27.0-31.0 [facility] CenterRfdktpkYNEUHOGPYS3208-52-90 12:13:00 Test Item Value Reference Range Interpretation Comments MCV (test code = MCV) 91.9 81.0-99.0 [facility] CenterRjvtysnOTIMOSLUJU0156-44-11 12:13:00 Test Item Value Reference Range Interpretation Comments Platelet (test code = Platelet) 177 133-450 [facility] CenterNfwmczbEJTDVHRZQX9252-82-38 12:13:00 Test Item Value Reference Range Interpretation Comments MPV (test code = MPV) 7.9 7.4-10.4 [facility] CenterNwuzwttKAMXPHIUYT6619-09-02 12:13:00 Test Item Value Reference Range Interpretation Comments RBC (test code = RBC) 3.91 4.20-5.40 [facility] CenterQabwfusBJNMHRAUVI4495-33-13 12:13:00 Test Item Value Reference Range Interpretation Comments Hct (test code = Hct) 35.9 36.0-48.0 [facility] CenterDrwcwkkMTWGOVGMWO4598-14-14 12:13:00 Test Item Value Reference Range Interpretation Comments Hgb (test code = Hgb) 12.3 12.0-16.0 [facility] CenterJegwjfyKHUVAEFCQF8227-30-17 12:13:00 Test Item Value Reference Range Interpretation Comments WBC (test code = WBC) 5.1 3.7-10.4 [facility]2014-05-05 12:13:00 Test Item Value Reference Range Interpretation Comments Magnesium Lvl (test code = Magnesium 1.8 1.8-2.4 Lvl) [facility]2014-05-05 12:13:00 Test Item Value Reference Range Interpretation Comments Phosphorus (test code = Phosphorus) 2.6 2.5-4.5 [facility]2014-05-05 12:13:00 Test Item Value Reference Range Interpretation Comments Globulin (test code = Globulin) 2.8 2.0-4.0 [facility]2014-05-05 12:13:00 Test Item Value Reference Range Interpretation Comments A/G Ratio (test code = A/G Ratio) 1.2 0.7-1.6 [facility]2014-05-05 12:13:00 Test Item Value Reference Range Interpretation Comments B/C Ratio (test code = B/C Ratio) 10 6-25 [place] 290354-05-05 12:13:00 Test Item Value Reference Range Interpretation Comments AGAP (test code = AGAP) 6.9 10.0-20.0 [facility]2014-05-05 12:13:00 Test Item Value Reference Range Interpretation Comments eGFR (test code = eGFR) 101 [facility]2014-05-05 12:13:00 Test Item Value Reference Range Interpretation Comments Glucose Lvl (test code = Glucose Lvl) 84 70-99 [facility]2014-05-05 12:13:00 Test Item Value Reference Range Interpretation Comments Potassium Lvl (test code = Potassium 3.9 3.5-5.1 Lvl) [facility]2014-05-05 12:13:00 Test Item Value Reference Range Interpretation Comments Sodium Lvl (test code = Sodium Lvl) 141 135-145 [facility]2014-05-05 12:13:00 Test Item Value Reference Range Interpretation Comments Creatinine Lvl (test code = Creatinine 0.7 0.5-1.4 Lvl) [facility]2014-05-05 12:13:00 Test Item Value Reference Range Interpretation Comments BUN (test code = BUN) 7 7-22 [facility]2014-05-05 12:13:00 Test Item Value Reference Range Interpretation Comments Bili Total (test code = Bili Total) 0.3 0.2-1.3 [facility]2014-05-05 12:13:00 Test Item Value Reference Range Interpretation Comments Alk Phos (test code = Alk Phos) 71 39-136 [facility]2014-05-05 12:13:00 Test Item Value Reference Range Interpretation Comments AST (test code = AST) 21 See_Comment [Auto mated message] The system which ge nerated this result transmit ulysses reference range : <=37. The reference range was not used to interpr et this result as sharron l/abnormal. [place] 290354-05-05 12:13:00 Test Item Value Reference Range Interpretation Comments ALT (test code = ALT) 20 See_Comment [Auto mated message] The system which ge nerated this result transmit ulysses reference range : <=65. The reference range was not used to interpr et this result as sharron l/abnormal. [facility]2014-05-05 12:13:00 Test Item Value Reference Range Interpretation Comments Total Protein (test code = Total 6.1 6.4-8.4 Protein) [facility]2014-05-05 12:13:00 Test Item Value Reference Range Interpretation Comments CO2 (test code = CO2) 33 24-32 [facility]2014-05-05 12:13:00 Test Item Value Reference Range Interpretation Comments Albumin Lvl (test code = Albumin Lvl) 3.3 3.5-5.0 [facility]2014-05-05 12:13:00 Test Item Value Reference Range Interpretation Comments Calcium Lvl (test code = Calcium Lvl) 8.4 8.5-10.5 [facility]2014-05-05 12:13:00 Test Item Value Reference Range Interpretation Comments Chloride Lvl (test code = Chloride Lvl) 105 95-109 [facility] CenterGoeaddwJSVUDWQARX2809-99-30 12:13:00 Test Item Value Reference Range Interpretation Comments Basophils # (test code 0.0 See_Comment [Aut omated message] The = Basophils #) system which generated this result tra nsmitted reference range : <=0.2. The reference r jamaica was not used to int erpret this result as normal/abnormal . [facility] CenterZvrtrfeRPAZBGVSWB5523-75-83 12:13:00 Test Item Value Reference Range Interpretation Comments Segs (test code = Segs) 63.5 45.0-75.0 [facility] CenterHluuzxfCCOVROXAUQ4053-94-82 12:13:00 Test Item Value Reference Range Interpretation Comments Monocytes # (test code 0.3 See_Comment [Aut omated message] The = Monocytes #) system which generated this result tra nsmitted reference range : <=0.8. The reference r jamaica was not used to int erpret this result as normal/abnormal . [facility] CenterZbhzzylNHAYJSDZCP0750-12-52 12:13:00 Test Item Value Reference Range Interpretation Comments Basophils (test code = 0.2 See_Comment [Aut omated message] The Basophils) system which ge nerated this result tra nsmitted reference range : <=1.0. The reference r jamaica was not used to int erpret this result as normal/abnormal . [facility] CenterPwodmhfVTDKJIRKDV5481-13-44 12:13:00 Test Item Value Reference Range Interpretation Comments Lymphocytes # (test code = Lymphocytes 1.5 1.0-5.5 #) [facility] CenterQelegmfTAMIQUVJKB5633-84-65 12:13:00 Test Item Value Reference Range Interpretation Comments Segs-Bands # (test code = Segs-Bands #) 3.3 1.5-8.1 [facility] CenterQmtuukjSCJDTVWOGY2192-05-06 12:13:00 Test Item Value Reference Range Interpretation Comments Eosinophils # (test code 0.1 See_Comment [A utomated message] The = Eosinophils #) system ic h generated this result tra nsmitted reference range : <=0.5. The reference r jamaica was not used to int erpret this result as normal/abnormal . [facility] CenterTlxmbraBVKSJMTIBR2726-79-46 12:13:00 Test Item Value Reference Range Interpretation Comments Lymphocytes (test code = Lymphocytes) 28.9 20.0-40.0 [facility] CenterLtfjkgrXMARKJGIPS4423-96-72 12:13:00 Test Item Value Reference Range Interpretation Comments Monocytes (test code = Monocytes) 6.2 2.0-12.0 [facility] CenterYlzuikqGJHHOXKOCO8724-86-22 12:13:00 Test Item Value Reference Range Interpretation Comments Eosinophils (test code = 1.2 See_Comment [A utomated message] The Eosinophils) system which ge nerated this result tra nsmitted reference range : <=4.0. The reference r jamaica was not used to int erpret this result as normal/abnormal . [facility] CenterKxrrcltWDHDYSAGML5566-47-40 12:13:00 Test Item Value Reference Range Interpretation Comments MCHC (test code = MCHC) 34.3 32.0-36.0 [facility] CenterAhychjtACHZADWNOY3576-52-17 12:13:00 Test Item Value Reference Range Interpretation Comments RDW (test code = RDW) 16.5 11.5-14.5 [facility] CenterWjxmfigUWIICOWSPZ6154-33-95 12:13:00 Test Item Value Reference Range Interpretation Comments MCH (test code = MCH) 31.5 pg 27.0-31.0 [facility] CenterIlezlejUIVQYJWZNU8523-79-93 12:13:00 Test Item Value Reference Range Interpretation Comments MCV (test code = MCV) 91.9 81.0-99.0 [facility] CenterBgvzfupOZPAQVMYDX8341-18-57 12:13:00 Test Item Value Reference Range Interpretation Comments Platelet (test code = Platelet) 177 133-450 [facility] CenterXdqwabeIJSDHGFIFI1468-10-28 12:13:00 Test Item Value Reference Range Interpretation Comments MPV (test code = MPV) 7.9 7.4-10.4 [facility] CenterAofnwjbSRFJJFXZXM9370-40-58 12:13:00 Test Item Value Reference Range Interpretation Comments RBC (test code = RBC) 3.91 4.20-5.40 [facility] CenterFftdbqaNCEHMQKDWJ7097-45-32 12:13:00 Test Item Value Reference Range Interpretation Comments Hct (test code = Hct) 35.9 36.0-48.0 [facility] CenterWnusnpkYDHWULWKEZ1606-66-90 12:13:00 Test Item Value Reference Range Interpretation Comments Hgb (test code = Hgb) 12.3 12.0-16.0 [facility] CenterEsnewbmHDZFGAVKGZ4036-26-07 12:13:00 Test Item Value Reference Range Interpretation Comments WBC (test code = WBC) 5.1 3.7-10.4 [facility]2014-05-05 12:13:00 Test Item Value Reference Range Interpretation Comments Magnesium Lvl (test code = Magnesium 1.8 1.8-2.4 Lvl) [facility]2014-05-05 12:13:00 Test Item Value Reference Range Interpretation Comments Phosphorus (test code = Phosphorus) 2.6 2.5-4.5 [facility]2014-05-05 12:13:00 Test Item Value Reference Range Interpretation Comments Globulin (test code = Globulin) 2.8 2.0-4.0 [facility]2014-05-05 12:13:00 Test Item Value Reference Range Interpretation Comments A/G Ratio (test code = A/G Ratio) 1.2 0.7-1.6 [facility]2014-05-05 12:13:00 Test Item Value Reference Range Interpretation Comments B/C Ratio (test code = B/C Ratio) 10 6-25 [facility]2014-05-05 12:13:00 Test Item Value Reference Range Interpretation Comments AGAP (test code = AGAP) 6.9 10.0-20.0 [facility]2014-05-05 12:13:00 Test Item Value Reference Range Interpretation Comments eGFR (test code = eGFR) 101 [facility]2014-05-05 12:13:00 Test Item Value Reference Range Interpretation Comments Glucose Lvl (test code = Glucose Lvl) 84 70-99 [facility]2014-05-05 12:13:00 Test Item Value Reference Range Interpretation Comments Potassium Lvl (test code = Potassium 3.9 3.5-5.1 Lvl) [facility]2014-05-05 12:13:00 Test Item Value Reference Range Interpretation Comments Sodium Lvl (test code = Sodium Lvl) 141 135-145 [facility]2014-05-05 12:13:00 Test Item Value Reference Range Interpretation Comments Creatinine Lvl (test code = Creatinine 0.7 0.5-1.4 Lvl) [facility]2014-05-05 12:13:00 Test Item Value Reference Range Interpretation Comments BUN (test code = BUN) 7 7-22 [facility]2014-05-05 12:13:00 Test Item Value Reference Range Interpretation Comments Bili Total (test code = Bili Total) 0.3 0.2-1.3 [facility]2014-05-05 12:13:00 Test Item Value Reference Range Interpretation Comments Alk Phos (test code = Alk Phos) 71 39-136 [facility]2014-05-05 12:13:00 Test Item Value Reference Range Interpretation Comments AST (test code = AST) 21 See_Comment [Auto mated message] The system which ge nerated this result transmit ulysses reference range : <=37. The reference range was not used to interpr et this result as sharron l/abnormal. [place] 290354-05-05 12:13:00 Test Item Value Reference Range Interpretation Comments ALT (test code = ALT) 20 See_Comment [Auto mated message] The system which ge nerated this result transmit ulysses reference range : <=65. The reference range was not used to interpr et this result as sharron l/abnormal. [place] 290354-05-05 12:13:00 Test Item Value Reference Range Interpretation Comments Total Protein (test code = Total 6.1 6.4-8.4 Protein) [place] 290354-05-05 12:13:00 Test Item Value Reference Range Interpretation Comments CO2 (test code = CO2) 33 24-32 [place] 290354-05-05 12:13:00 Test Item Value Reference Range Interpretation Comments Albumin Lvl (test code = Albumin Lvl) 3.3 3.5-5.0 [facility]2014-05-05 12:13:00 Test Item Value Reference Range Interpretation Comments Calcium Lvl (test code = Calcium Lvl) 8.4 8.5-10.5 [facility]2014-05-05 12:13:00 Test Item Value Reference Range Interpretation Comments Chloride Lvl (test code = Chloride Lvl) 105 95-109 [facility] CenterDgilxanHYXXIVQDFT6211-38-19 12:13:00 Test Item Value Reference Range Interpretation Comments Basophils # (test code 0.0 See_Comment [Aut omated message] The = Basophils #) system which generated this result tra nsmitted reference range : <=0.2. The reference r jamaica was not used to int erpret this result as normal/abnormal . [facility] CenterYksvfjjFFDKFASSCN1968-50-91 12:13:00 Test Item Value Reference Range Interpretation Comments Segs (test code = Segs) 63.5 45.0-75.0 [place] 694914-05-05 12:13:00 Test Item Value Reference Range Interpretation Comments Monocytes # (test code 0.3 See_Comment [Aut omated message] The = Monocytes #) system which generated this result tra nsmitted reference range : <=0.8. The reference r jamaica was not used to int erpret this result as normal/abnormal . [facility] CenterQblmuteAJFZZFDANY0291-09-44 12:13:00 Test Item Value Reference Range Interpretation Comments Basophils (test code = 0.2 See_Comment [Aut omated message] The Basophils) system which ge nerated this result tra nsmitted reference range : <=1.0. The reference r jamaica was not used to int erpret this result as normal/abnormal . [facility] CenterCxbhaxxNEXONEASKT1786-19-16 12:13:00 Test Item Value Reference Range Interpretation Comments Lymphocytes # (test code = Lymphocytes 1.5 1.0-5.5 #) [facility] CenterNzmwtwjKERRMGAOGE1678-26-85 12:13:00 Test Item Value Reference Range Interpretation Comments Segs-Bands # (test code = Segs-Bands #) 3.3 1.5-8.1 [facility] CenterXbakadvIJJEEYRHVP3206-88-07 12:13:00 Test Item Value Reference Range Interpretation Comments Eosinophils # (test code 0.1 See_Comment [A utomated message] The = Eosinophils #) system whic h generated this result tra nsmitted reference range : <=0.5. The reference r jamaica was not used to int erpret this result as normal/abnormal . [facility] CenterVlwapafRDOUZOCBME8200-94-14 12:13:00 Test Item Value Reference Range Interpretation Comments Lymphocytes (test code = Lymphocytes) 28.9 20.0-40.0 [facility] CenterFqhibvoMTNAQYWWZX0929-94-05 12:13:00 Test Item Value Reference Range Interpretation Comments Monocytes (test code = Monocytes) 6.2 2.0-12.0 [facility] CenterVwlspvtYFAXWEJQAC5703-17-84 12:13:00 Test Item Value Reference Range Interpretation Comments Eosinophils (test code = 1.2 See_Comment [A utomated message] The Eosinophils) system which ge nerated this result tra nsmitted reference range : <=4.0. The reference r jamaica was not used to int erpret this result as normal/abnormal . [facility] CenterHdqygozZSRYJFWDNW3634-07-57 12:13:00 Test Item Value Reference Range Interpretation Comments MCHC (test code = MCHC) 34.3 32.0-36.0 [facility] CenterHzazgvoRYBGLEUPCV3876-80-53 12:13:00 Test Item Value Reference Range Interpretation Comments RDW (test code = RDW) 16.5 11.5-14.5 [facility] CenterUpurktzHHKDADLDFU8065-47-65 12:13:00 Test Item Value Reference Range Interpretation Comments MCH (test code = MCH) 31.5 pg 27.0-31.0 [facility] CenterIynvzkaNNVMZBSUJW6718-11-38 12:13:00 Test Item Value Reference Range Interpretation Comments MCV (test code = MCV) 91.9 81.0-99.0 [facility] CenterDaubjvaJFHGXQAPWP2051-04-25 12:13:00 Test Item Value Reference Range Interpretation Comments Platelet (test code = Platelet) 177 133-450 [facility] CenterEcpryiiAEFWUAGJYG9389-73-63 12:13:00 Test Item Value Reference Range Interpretation Comments MPV (test code = MPV) 7.9 7.4-10.4 [facility] CenterUnsilatOHZITRFKEW7961-11-81 12:13:00 Test Item Value Reference Range Interpretation Comments RBC (test code = RBC) 3.91 4.20-5.40 [facility] CenterXhbwqvxVPDQRJKTJQ0980-68-14 12:13:00 Test Item Value Reference Range Interpretation Comments Hct (test code = Hct) 35.9 36.0-48.0 [facility] CenterKywgdmtYBBAMXNVEZ1706-38-56 12:13:00 Test Item Value Reference Range Interpretation Comments Hgb (test code = Hgb) 12.3 12.0-16.0 [facility] CenterLefkvywMNOMQFEWRY4594-62-37 12:13:00 Test Item Value Reference Range Interpretation Comments WBC (test code = WBC) 5.1 3.7-10.4 [facility]2014-05-05 12:13:00 Test Item Value Reference Range Interpretation Comments Magnesium Lvl (test code = Magnesium 1.8 1.8-2.4 Lvl) [facility]2014-05-05 12:13:00 Test Item Value Reference Range Interpretation Comments Phosphorus (test code = Phosphorus) 2.6 2.5-4.5 [facility]2014-05-05 12:13:00 Test Item Value Reference Range Interpretation Comments Globulin (test code = Globulin) 2.8 2.0-4.0 [facility]2014-05-05 12:13:00 Test Item Value Reference Range Interpretation Comments A/G Ratio (test code = A/G Ratio) 1.2 0.7-1.6 [place] 290354-05-05 12:13:00 Test Item Value Reference Range Interpretation Comments B/C Ratio (test code = B/C Ratio) 10 6-25 [place] 290354-05-05 12:13:00 Test Item Value Reference Range Interpretation Comments AGAP (test code = AGAP) 6.9 10.0-20.0 [place] 290354-05-05 12:13:00 Test Item Value Reference Range Interpretation Comments eGFR (test code = eGFR) 101 [place] 290354-05-05 12:13:00 Test Item Value Reference Range Interpretation Comments Glucose Lvl (test code = Glucose Lvl) 84 70-99 [place] 290354-05-05 12:13:00 Test Item Value Reference Range Interpretation Comments Potassium Lvl (test code = Potassium 3.9 3.5-5.1 Lvl) [place] 290354-05-05 12:13:00 Test Item Value Reference Range Interpretation Comments Sodium Lvl (test code = Sodium Lvl) 141 135-145 [place] 290354-05-05 12:13:00 Test Item Value Reference Range Interpretation Comments Creatinine Lvl (test code = Creatinine 0.7 0.5-1.4 Lvl) [place] 290354-05-05 12:13:00 Test Item Value Reference Range Interpretation Comments BUN (test code = BUN) 7 7-22 [place] 290354-05-05 12:13:00 Test Item Value Reference Range Interpretation Comments Bili Total (test code = Bili Total) 0.3 0.2-1.3 [place] 290354-05-05 12:13:00 Test Item Value Reference Range Interpretation Comments Alk Phos (test code = Alk Phos) 71 39-136 [facility]2014-05-05 12:13:00 Test Item Value Reference Range Interpretation Comments AST (test code = AST) 21 See_Comment [Auto mated message] The system which ge nerated this result transmit ulysses reference range : <=37. The reference range was not used to interpr et this result as sharron l/abnormal. [facility]2014-05-05 12:13:00 Test Item Value Reference Range Interpretation Comments ALT (test code = ALT) 20 See_Comment [Auto mated message] The system which ge nerated this result transmit ulysses reference range : <=65. The reference range was not used to interpr et this result as sharron l/abnormal. [place] 290354-05-05 12:13:00 Test Item Value Reference Range Interpretation Comments Total Protein (test code = Total 6.1 6.4-8.4 Protein) [place] 290354-05-05 12:13:00 Test Item Value Reference Range Interpretation Comments CO2 (test code = CO2) 33 24-32 [place] 290354-05-05 12:13:00 Test Item Value Reference Range Interpretation Comments Albumin Lvl (test code = Albumin Lvl) 3.3 3.5-5.0 [facility]2014-05-05 12:13:00 Test Item Value Reference Range Interpretation Comments Calcium Lvl (test code = Calcium Lvl) 8.4 8.5-10.5 [place] 290354-05-05 12:13:00 Test Item Value Reference Range Interpretation Comments Chloride Lvl (test code = Chloride Lvl) 105 95-109 [facility] CenterCvmqpgxSGFZPPOYNH9456-33-45 12:13:00 Test Item Value Reference Range Interpretation Comments Basophils # (test code 0.0 See_Comment [Aut omated message] The = Basophils #) system which generated this result tra nsmitted reference range : <=0.2. The reference r jamaica was not used to int erpret this result as normal/abnormal . [facility] CenterSgypqotLNMJVTPNVA6040-62-91 12:13:00 Test Item Value Reference Range Interpretation Comments Segs (test code = Segs) 63.5 45.0-75.0 [facility] CenterExsfclgZQQPFRCLNE5688-33-10 12:13:00 Test Item Value Reference Range Interpretation Comments Monocytes # (test code 0.3 See_Comment [Aut omated message] The = Monocytes #) system which generated this result tra nsmitted reference range : <=0.8. The reference r jamaica was not used to int erpret this result as normal/abnormal . [facility] CenterEmfmwpgEMEDPBALUG0520-88-41 12:13:00 Test Item Value Reference Range Interpretation Comments Basophils (test code = 0.2 See_Comment [Aut omated message] The Basophils) system which ge nerated this result tra nsmitted reference range : <=1.0. The reference r jamaica was not used to int erpret this result as normal/abnormal . [facility] CenterChnlxulKZJMMSHJFO4260-46-05 12:13:00 Test Item Value Reference Range Interpretation Comments Lymphocytes # (test code = Lymphocytes 1.5 1.0-5.5 #) [facility] CenterHfmxnlxUPYBQDBSCG5908-00-54 12:13:00 Test Item Value Reference Range Interpretation Comments Segs-Bands # (test code = Segs-Bands #) 3.3 1.5-8.1 [facility] CenterFdsoxfvHFVGXPOWPJ8900-63-25 12:13:00 Test Item Value Reference Range Interpretation Comments Eosinophils # (test code 0.1 See_Comment [A utomated message] The = Eosinophils #) system wh h generated this result tra nsmitted reference range : <=0.5. The reference r jamaica was not used to int erpret this result as normal/abnormal . [facility] CenterMpfjbdcLBSLDGPKCV5423-92-69 12:13:00 Test Item Value Reference Range Interpretation Comments Lymphocytes (test code = Lymphocytes) 28.9 20.0-40.0 [facility] CenterNmgqriuUUAWGEVPSZ1526-79-55 12:13:00 Test Item Value Reference Range Interpretation Comments Monocytes (test code = Monocytes) 6.2 2.0-12.0 [facility] CenterOqdockrOVYZSFDFBM4188-35-16 12:13:00 Test Item Value Reference Range Interpretation Comments Eosinophils (test code = 1.2 See_Comment [A utomated message] The Eosinophils) system which ge nerated this result tra nsmitted reference range : <=4.0. The reference r jamaica was not used to int erpret this result as normal/abnormal . [facility] CenterUtzvpivVJKOZMFWTX2057-95-91 12:13:00 Test Item Value Reference Range Interpretation Comments MCHC (test code = MCHC) 34.3 32.0-36.0 [facility] CenterEgyhiivBMCBTUPDIE5286-60-62 12:13:00 Test Item Value Reference Range Interpretation Comments RDW (test code = RDW) 16.5 11.5-14.5 [facility] CenterDeszwutMVQLSAAVGF7539-68-59 12:13:00 Test Item Value Reference Range Interpretation Comments MCH (test code = MCH) 31.5 pg 27.0-31.0 [facility] CenterZdtofnaKKHGUJIQCU1284-32-93 12:13:00 Test Item Value Reference Range Interpretation Comments MCV (test code = MCV) 91.9 81.0-99.0 [facility] CenterTffcvyjAJYIVNNYRQ3183-67-98 12:13:00 Test Item Value Reference Range Interpretation Comments Platelet (test code = Platelet) 177 133-450 [facility] CenterYcixgzwMSYLVZALIO8925-26-18 12:13:00 Test Item Value Reference Range Interpretation Comments MPV (test code = MPV) 7.9 7.4-10.4 [facility] CenterNltbxthZSAJAPJGRJ9147-34-69 12:13:00 Test Item Value Reference Range Interpretation Comments RBC (test code = RBC) 3.91 4.20-5.40 [facility] CenterVmfzenrUIDPHMPJHA2879-06-91 12:13:00 Test Item Value Reference Range Interpretation Comments Hct (test code = Hct) 35.9 36.0-48.0 [facility]SeinqwqOKZVNUEFQJ2120-47-02 12:13:00 Test Item Value Reference Range Interpretation Comments Hgb (test code = Hgb) 12.3 12.0-16.0 [facility] CenterRtmjelgBKTAZBNIOO2887-41-36 12:13:00 Test Item Value Reference Range Interpretation Comments WBC (test code = WBC) 5.1 3.7-10.4 [facility]2014-05-05 12:13:00 Test Item Value Reference Range Interpretation Comments Magnesium Lvl (test code = Magnesium 1.8 1.8-2.4 Lvl) [facility]2014-05-05 12:13:00 Test Item Value Reference Range Interpretation Comments Phosphorus (test code = Phosphorus) 2.6 2.5-4.5 [facility]2014-05-05 12:13:00 Test Item Value Reference Range Interpretation Comments Globulin (test code = Globulin) 2.8 2.0-4.0 [facility]2014-05-05 12:13:00 Test Item Value Reference Range Interpretation Comments A/G Ratio (test code = A/G Ratio) 1.2 0.7-1.6 [facility]2014-05-05 12:13:00 Test Item Value Reference Range Interpretation Comments B/C Ratio (test code = B/C Ratio) 10 6-25 [facility]2014-05-05 12:13:00 Test Item Value Reference Range Interpretation Comments AGAP (test code = AGAP) 6.9 10.0-20.0 [place] 290354-05-05 12:13:00 Test Item Value Reference Range Interpretation Comments eGFR (test code = eGFR) 101 [place] 290354-05-05 12:13:00 Test Item Value Reference Range Interpretation Comments Glucose Lvl (test code = Glucose Lvl) 84 70-99 [place] 290354-05-05 12:13:00 Test Item Value Reference Range Interpretation Comments Potassium Lvl (test code = Potassium 3.9 3.5-5.1 Lvl) [facility]2014-05-05 12:13:00 Test Item Value Reference Range Interpretation Comments Sodium Lvl (test code = Sodium Lvl) 141 135-145 [facility]2014-05-05 12:13:00 Test Item Value Reference Range Interpretation Comments Creatinine Lvl (test code = Creatinine 0.7 0.5-1.4 Lvl) [facility]2014-05-05 12:13:00 Test Item Value Reference Range Interpretation Comments BUN (test code = BUN) 7 7-22 [facility]2014-05-05 12:13:00 Test Item Value Reference Range Interpretation Comments Bili Total (test code = Bili Total) 0.3 0.2-1.3 [place] [address]354-05-05 12:13:00 Test Item Value Reference Range Interpretation Comments Alk Phos (test code = Alk Phos) 71 39-136 [place] 290354-05-05 12:13:00 Test Item Value Reference Range Interpretation Comments AST (test code = AST) 21 See_Comment [Auto mated message] The system which ge nerated this result transmit ulysses reference range : <=37. The reference range was not used to interpr et this result as sharron l/abnormal. [place] 290354-05-05 12:13:00 Test Item Value Reference Range Interpretation Comments ALT (test code = ALT) 20 See_Comment [Auto mated message] The system which ge nerated this result transmit ulysses reference range : <=65. The reference range was not used to interpr et this result as sharron l/abnormal. [facility]2014-05-05 12:13:00 Test Item Value Reference Range Interpretation Comments Total Protein (test code = Total 6.1 6.4-8.4 Protein) [place] 290354-05-05 12:13:00 Test Item Value Reference Range Interpretation Comments CO2 (test code = CO2) 33 24-32 [place] 290354-05-05 12:13:00 Test Item Value Reference Range Interpretation Comments Albumin Lvl (test code = Albumin Lvl) 3.3 3.5-5.0 [facility]2014-05-05 12:13:00 Test Item Value Reference Range Interpretation Comments Calcium Lvl (test code = Calcium Lvl) 8.4 8.5-10.5 [place] 290354-05-05 12:13:00 Test Item Value Reference Range Interpretation Comments Chloride Lvl (test code = Chloride Lvl) 105 95-109 [facility] CenterTxszpwlSXBPFZZHOW4616-98-69 12:13:00 Test Item Value Reference Range Interpretation Comments Basophils # (test code 0.0 See_Comment [Aut omated message] The = Basophils #) system which generated this result tra nsmitted reference range : <=0.2. The reference r jamaica was not used to int erpret this result as normal/abnormal . [facility] CenterXhjfopwVTQCTZEJQY1084-10-92 12:13:00 Test Item Value Reference Range Interpretation Comments Segs (test code = Segs) 63.5 45.0-75.0 [place] [address]-05-05 12:13:00 Test Item Value Reference Range Interpretation Comments Monocytes # (test code 0.3 See_Comment [Aut omated message] The = Monocytes #) system which generated this result tra nsmitted reference range : <=0.8. The reference r jamaica was not used to int erpret this result as normal/abnormal . [facility] CenterEeqzklkFYDHBJZTKV5237-98-29 12:13:00 Test Item Value Reference Range Interpretation Comments Basophils (test code = 0.2 See_Comment [Aut omated message] The Basophils) system which ge nerated this result tra nsmitted reference range : <=1.0. The reference r jamaica was not used to int erpret this result as normal/abnormal . [facility] CenterSpfomduGSCDLHVQLS2960-47-81 12:13:00 Test Item Value Reference Range Interpretation Comments Lymphocytes # (test code = Lymphocytes 1.5 1.0-5.5 #) [facility] CenterZqwoycvPORCJWCOCU3533-38-41 12:13:00 Test Item Value Reference Range Interpretation Comments Segs-Bands # (test code = Segs-Bands #) 3.3 1.5-8.1 [facility] CenterZpaqrntYSSWXDJTIB1551-98-39 12:13:00 Test Item Value Reference Range Interpretation Comments Eosinophils # (test code 0.1 See_Comment [A utomated message] The = Eosinophils #) system whic h generated this result tra nsmitted reference range : <=0.5. The reference r jamaica was not used to int erpret this result as normal/abnormal . [facility] CenterYodfpyiMBIUEFUBNY8495-34-77 12:13:00 Test Item Value Reference Range Interpretation Comments Lymphocytes (test code = Lymphocytes) 28.9 20.0-40.0 [facility] CenterIfasmcwENRGXKFQQA6266-27-17 12:13:00 Test Item Value Reference Range Interpretation Comments Monocytes (test code = Monocytes) 6.2 2.0-12.0 [facility] CenterKzgkanpXQVEUMDANS8056-90-22 12:13:00 Test Item Value Reference Range Interpretation Comments Eosinophils (test code = 1.2 See_Comment [A utomated message] The Eosinophils) system which ge nerated this result tra nsmitted reference range : <=4.0. The reference r jamaica was not used to int erpret this result as normal/abnormal . [facility] CenterQumsbbsSUNFIMHQSS6437-43-37 12:13:00 Test Item Value Reference Range Interpretation Comments MCHC (test code = MCHC) 34.3 32.0-36.0 [facility] CenterQadruomBVXAPABJMD7408-14-36 12:13:00 Test Item Value Reference Range Interpretation Comments RDW (test code = RDW) 16.5 11.5-14.5 [facility] CenterMkozwikUKKFORTAHL1332-72-97 12:13:00 Test Item Value Reference Range Interpretation Comments MCH (test code = MCH) 31.5 pg 27.0-31.0 [facility] CenterKzotagcLSHRRPINEI7993-38-55 12:13:00 Test Item Value Reference Range Interpretation Comments MCV (test code = MCV) 91.9 81.0-99.0 [facility] CenterAunmmvfSEGXPKEKBC9570-97-28 12:13:00 Test Item Value Reference Range Interpretation Comments Platelet (test code = Platelet) 177 133-450 [facility] CenterAneadpgPKJZJVLIUL9990-47-01 12:13:00 Test Item Value Reference Range Interpretation Comments MPV (test code = MPV) 7.9 7.4-10.4 [facility] CenterWbkoyvpUBYEUNERTN5938-43-81 12:13:00 Test Item Value Reference Range Interpretation Comments RBC (test code = RBC) 3.91 4.20-5.40 [facility] CenterHchppnqJKOVHBCVBU4227-88-47 12:13:00 Test Item Value Reference Range Interpretation Comments Hct (test code = Hct) 35.9 36.0-48.0 [facility] CenterPvyfxstDXULXDCOLX7472-54-60 12:13:00 Test Item Value Reference Range Interpretation Comments Hgb (test code = Hgb) 12.3 12.0-16.0 [facility] CenterJqjibeaXMBCQDTVZB0931-74-68 12:13:00 Test Item Value Reference Range Interpretation Comments WBC (test code = WBC) 5.1 3.7-10.4 [facility]2014-05-05 12:13:00 Test Item Value Reference Range Interpretation Comments Magnesium Lvl (test code = Magnesium 1.8 1.8-2.4 Lvl) [facility]2014-05-05 12:13:00 Test Item Value Reference Range Interpretation Comments Phosphorus (test code = Phosphorus) 2.6 2.5-4.5 [facility]2014-05-05 12:13:00 Test Item Value Reference Range Interpretation Comments Globulin (test code = Globulin) 2.8 2.0-4.0 [facility]2014-05-05 12:13:00 Test Item Value Reference Range Interpretation Comments A/G Ratio (test code = A/G Ratio) 1.2 0.7-1.6 [facility]2014-05-05 12:13:00 Test Item Value Reference Range Interpretation Comments B/C Ratio (test code = B/C Ratio) 10 6-25 [facility]2014-05-05 12:13:00 Test Item Value Reference Range Interpretation Comments AGAP (test code = AGAP) 6.9 10.0-20.0 [place] [address]354-05-05 12:13:00 Test Item Value Reference Range Interpretation Comments eGFR (test code = eGFR) 101 [facility]2014-05-05 12:13:00 Test Item Value Reference Range Interpretation Comments Glucose Lvl (test code = Glucose Lvl) 84 70-99 [place] 290354-05-05 12:13:00 Test Item Value Reference Range Interpretation Comments Potassium Lvl (test code = Potassium 3.9 3.5-5.1 Lvl) [facility]2014-05-05 12:13:00 Test Item Value Reference Range Interpretation Comments Sodium Lvl (test code = Sodium Lvl) 141 135-145 [place] 290354-05-05 12:13:00 Test Item Value Reference Range Interpretation Comments Creatinine Lvl (test code = Creatinine 0.7 0.5-1.4 Lvl) [place] [address]354-05-05 12:13:00 Test Item Value Reference Range Interpretation Comments BUN (test code = BUN) 7 7-22 [facility]2014-05-05 12:13:00 Test Item Value Reference Range Interpretation Comments Bili Total (test code = Bili Total) 0.3 0.2-1.3 [facility]2014-05-05 12:13:00 Test Item Value Reference Range Interpretation Comments Alk Phos (test code = Alk Phos) 71 39-136 [place] 290354-05-05 12:13:00 Test Item Value Reference Range Interpretation Comments AST (test code = AST) 21 See_Comment [Auto mated message] The system which ge nerated this result transmit ulysses reference range : <=37. The reference range was not used to interpr et this result as sharron l/abnormal. [facility]2014-05-05 12:13:00 Test Item Value Reference Range Interpretation Comments ALT (test code = ALT) 20 See_Comment [Auto mated message] The system which ge nerated this result transmit ulysses reference range : <=65. The reference range was not used to interpr et this result as sharron l/abnormal. [place] [address]354-05-05 12:13:00 Test Item Value Reference Range Interpretation Comments Total Protein (test code = Total 6.1 6.4-8.4 Protein) [facility]2014-05-05 12:13:00 Test Item Value Reference Range Interpretation Comments CO2 (test code = CO2) 33 24-32 [place] [address]354-05-05 12:13:00 Test Item Value Reference Range Interpretation Comments Albumin Lvl (test code = Albumin Lvl) 3.3 3.5-5.0 [facility]2014-05-05 12:13:00 Test Item Value Reference Range Interpretation Comments Calcium Lvl (test code = Calcium Lvl) 8.4 8.5-10.5 [place] 290354-05-05 12:13:00 Test Item Value Reference Range Interpretation Comments Chloride Lvl (test code = Chloride Lvl) 105 95-109 [facility] CenterPqpkodfIWBXWYUJSL0230-71-93 12:13:00 Test Item Value Reference Range Interpretation Comments Basophils # (test code 0.0 See_Comment [Aut omated message] The = Basophils #) system which generated this result tra nsmitted reference range : <=0.2. The reference r jamaica was not used to int erpret this result as normal/abnormal . [facility] CenterEdfcrcwPBDQINODKU8215-50-53 12:13:00 Test Item Value Reference Range Interpretation Comments Segs (test code = Segs) 63.5 45.0-75.0 [facility] CenterZrugxleOOUIBGTGYV0613-18-74 12:13:00 Test Item Value Reference Range Interpretation Comments Monocytes # (test code 0.3 See_Comment [Aut omated message] The = Monocytes #) system which generated this result tra nsmitted reference range : <=0.8. The reference r jamaica was not used to int erpret this result as normal/abnormal . [facility] CenterMhajcisIAIHSJILQD0994-79-75 12:13:00 Test Item Value Reference Range Interpretation Comments Basophils (test code = 0.2 See_Comment [Aut omated message] The Basophils) system which ge nerated this result tra nsmitted reference range : <=1.0. The reference r jamaica was not used to int erpret this result as normal/abnormal . [facility] CenterFnpotpzZKUIYIXPUW1401-45-10 12:13:00 Test Item Value Reference Range Interpretation Comments Lymphocytes # (test code = Lymphocytes 1.5 1.0-5.5 #) [facility] CenterGuubpzlVYBTZUMVCZ9696-24-45 12:13:00 Test Item Value Reference Range Interpretation Comments Segs-Bands # (test code = Segs-Bands #) 3.3 1.5-8.1 [facility] CenterOqxzjvuHCWFIYFYLK3829-62-05 12:13:00 Test Item Value Reference Range Interpretation Comments Eosinophils # (test code 0.1 See_Comment [A utomated message] The = Eosinophils #) system whic h generated this result tra nsmitted reference range : <=0.5. The reference r jamaica was not used to int erpret this result as normal/abnormal . [facility] CenterLjlxqfcQIEUFXMMRP2844-08-33 12:13:00 Test Item Value Reference Range Interpretation Comments Lymphocytes (test code = Lymphocytes) 28.9 20.0-40.0 [facility] CenterStlttajORMQYCPDCD6383-64-40 12:13:00 Test Item Value Reference Range Interpretation Comments Monocytes (test code = Monocytes) 6.2 2.0-12.0 [facility] CenterWtruzriLPHTIXMRYR8822-76-68 12:13:00 Test Item Value Reference Range Interpretation Comments Eosinophils (test code = 1.2 See_Comment [A utomated message] The Eosinophils) system which ge nerated this result tra nsmitted reference range : <=4.0. The reference r jamaica was not used to int erpret this result as normal/abnormal . [facility] CenterSebanyjDZSPPQRDDL3895-57-65 12:13:00 Test Item Value Reference Range Interpretation Comments MCHC (test code = MCHC) 34.3 32.0-36.0 [facility] CenterAsvruniLPCZGVKDLU5328-75-58 12:13:00 Test Item Value Reference Range Interpretation Comments RDW (test code = RDW) 16.5 11.5-14.5 [facility] CenterIvybqnuMXDGLXXKXI7498-82-27 12:13:00 Test Item Value Reference Range Interpretation Comments MCH (test code = MCH) 31.5 pg 27.0-31.0 [facility] CenterHwrbipzXNDZNMRTWI6645-34-34 12:13:00 Test Item Value Reference Range Interpretation Comments MCV (test code = MCV) 91.9 81.0-99.0 [facility] CenterHizfkaxORJQPRIPSO8173-89-49 12:13:00 Test Item Value Reference Range Interpretation Comments Platelet (test code = Platelet) 177 133-450 [facility] CenterIoaopeaWGONKQKEFG6341-69-61 12:13:00 Test Item Value Reference Range Interpretation Comments MPV (test code = MPV) 7.9 7.4-10.4 [facility] CenterNkencukFIORXHOTGJ7422-09-24 12:13:00 Test Item Value Reference Range Interpretation Comments RBC (test code = RBC) 3.91 4.20-5.40 [facility] CenterEpcqbmjBGYKBMUBMY1167-63-78 12:13:00 Test Item Value Reference Range Interpretation Comments Hct (test code = Hct) 35.9 36.0-48.0 [facility] CenterTtidcreLESEWNMFRD1751-08-35 12:13:00 Test Item Value Reference Range Interpretation Comments Hgb (test code = Hgb) 12.3 12.0-16.0 [facility] CenterXymhjpwVZFLRIPBYH5671-89-63 12:13:00 Test Item Value Reference Range Interpretation Comments WBC (test code = WBC) 5.1 3.7-10.4 [facility] Notes Date/Time Note Provider Source 2021 17:23:00-00:00 [id number] [facility] [address] [place] [address] PATIENT NAME: RO MAYNARD ADMIT DATE: ACCOUNT NO: [id number] ROOM NO: [facility] AGE: 56 REPORT TYPE: CONSULTATION SEX: F ADMITTING PHYSICIAN: Jaiden Antunez MD ATTENDING PHYSICIAN: Shadi Carcamo MD CONSULTATION DATE: CONSULTING PHYSICIAN: Dawson Ramírez MD ATTENDING PHYSICIAN: Shadi Carcamo MD. REASON FOR CONSULTATION: Intractable nausea, vom iting, abdominal pain, epigastric and right upper quadrant. HISTORY OF PRESENT ILLNESS: The patient is a 56-year-old woman who has been to [facility] multiple times for similar sympt oms of nausea, vomiting, and abdominal pain. CAT scan at the facility has been negative. She does have mild elevation of LFTs. She does report history of he patitis C that has not been treated and wants to be. She also report s that 40 years ago, she was diagnosed with Crohn's disease after a colonoscopy, but brito s not been on any treatment. She admits to drinking 6 to 8 times per day. Als o, admits to using marijuana for her pain. ADDENDUM PAST MEDICAL HISTORY: History of reported Crohn' s disease without any definitive evidence, history of hepatitis C, rheumatoid arthritis, sleep apnea, dyslipidemia, and hypertension. PAST SURGICAL HISTORY: Hysterectomy, appendectom y, bladder sling surgery, and tonsillectomy. FAMILY HISTORY: Noncontributory. SOCIAL HISTORY: Admits to excessive alcohol use as well as marijuana use, smoker. HOME MEDICATIONS: As in the chart. ALLERGIES: TO SULFA. REVIEW OF SYSTEMS: GASTROINTESTINAL: As in HPI, otherwise negative. Remainder of 10-point review of system is negati ve. PHYSICAL EXAMINATION: Reviewed. VITAL SIGNS: The patient's temperature 36.5 degr ees centigrade, pulse 72, PATIENT NAME: RO MAYNARD 9001 respiratory rate 18, and blood pressure 130/69. HEENT: Head is atraumatic and normocephalic. Pup ils are equally reactive. NECK: Supple. LUNGS: Clear to auscultation bilaterally. ABDOMEN: Soft. Mild vague tenderness. Bowel soun ds are present. EXTREMITIES: No pedal edema. LABORATORY DATA: Reviewed. No significant findin g. She is not anemic. Normal white count. Liver enzymes on the chemis try panel reveal mild elevation of ALT and AST, likely consistent with her hepatitis C and alcoholic liver disease. Toxicology screen revealed opiates as well as ca nnabis. IMAGING: She had an MRCP done today, which is ne gative as well as a HIDA. She is undergoing a small bowel series as well. IMPRESSION: A 56-year-old woman with multiple me dical problems, history of hepatitis C, chronic alcohol use and marijuana use with intractable episodes of nausea, vomiting, and abdominal pain. In my opin ion, she has 3 likely differential, 1. Cyclical vomiting syndrome secondary to canna bis. 2. Chronic pancreatitis secondary to chronic alc ohol use. 3. Active Crohn's disease. PLAN: 1. We will await small bowel follow through. If that is okay, she can be discharged and follow up with us in the clinic. She ____ to undergo endoscopy and colonoscopy for further evaluation for Crohn 's. 2. ____ As far as the hepatitis C, she says she had extensive workup done recently. Around 40 ____ wer e drawn,which we will try to obtain them from [employer] and plan for treatment for hepatitis C, I strong ly recommended to avoid marijuana and alcohol at this time. The patient is cleared to be discharged from GI after a small bowel follow through if no acute pathology like an obstruction is found. We will continue workup as an outpatient. WT: CON:L.HIM/SIDUM/NTS Conf#: [id number]/DID#: [id number] (ADDENDUM) Dictated By: Dawson Ramírez MD WT: CON:L.HIM/SIDUM/NTS Conf#: [id number]/DID#: [id number] Authenticated by Dawson Ramírez MD On 01:50:51 PM at 1351 PATIENT NAME: RO MAYNARD 9001 2021 10:28:00-00:00 [facility] ([facility]) Hospitalist Progress Note REPORT#:[id number] REPORT STATUS: Signed DATE:02/26/21 TIME:1028 PATIENT: RO MAYNARD UNIT #: [id number] ROOM/BED: [place] [address] : 63 AGE: 56 SEX: F ATTEND: Xiomara Antunez MD ADM AUTHOR: Shadi Carcamo MD * ALL edits or amendments must be made on the [email or web address] document * Subjective Chief Complaint: No acute events Still no epigastric pain Patient has history of Quispe's esophagus Objective General VS/I O: Vital Signs: Date Time Temp Pulse Resp B/P B/P Pulse O2 O2 F low FiO2 Mean Ox Delivery Rate 02/26 1150 98.6 59 18 136/74 94.5 92 Room air 02/26 0857 97 Room air 21 02/26 0814 98.4 55 18 130/77 94.8 92 Room air 02/26 0444 98.8 63 14 123/76 0.0 98 02/26 0432 71 95 30 02/26 0117 68 123/77 92.5 02/26 0100 68 97 30 02/26 0041 98.2 56 14 104/67 79.2 93 02/25 2031 98.4 59 18 139/79 99.3 89 Room air 24 hour I O ending at 0700: 02/26 0700 02/25 1900 Intake Total Output Total Balance Patient 130 lb Weight Weight Stated/Reported Measurement Method PATIENT WEIGHT: Weight (lb): Weight (oz): Weight (kg): 59.091 Medications: Active Meds + DC'd Last 24 Hrs Folic Acid 1 MG DAILY PO Multivitamins Therapeutic 1 TAB DAILY PO Thiamine HCl 100 MG DAILY PO Heparin Sodium (Porcine) 5,000 UNIT Q8HR SUBQ Zolpidem Tartrate 5 MG BEDTIME PRN PRN PO Pantoprazole Sodium 40 MG Q12HR IV Acetaminophen 650 MG Q4H PRN PRN PO Morphine Sulfate 4 MG Q4H PRN PRN IV Atorvastatin Calcium 20 MG DAILY@1700 PO Losartan Potassium 50 MG DAILY PO Nicotine 21 MG DAILY TRANSDERM (CKD) Paroxetine HCl 10 MG QAM PO Prednisone 10 MG DAILY PO Lorazepam 2 MG Q6H PRN PRN IV Ondansetron HCl 4 MG Q6H PRN PRN IV Folic Acid 1 MG X1ED STA IV (DC) Thiamine HCl 100 MG Multivitamins 10 ML Sodium Chloride 1,000 ML Hydromorphone HCl 1 MG ONCE ONE IV (DC) General appearance: alert, awake, oriented HEENT : normocephalic ,Atraumatic Eyes: Eyes normal inspection. ENT: Dry mucous membranes present. Neck: Normal inspection. Neck supple. CVS: Normal heart rate and rhythm. Heart sounds normal. Respiratory: No respiratory distress. Breath stacey nds normal. Abdomen: Soft and nontender. Genitourinary: no bladder distention Back: Normal inspection. Skin: Skin warm. Normal skin color. No rash. Extremities: No lower extremity edema. Neuro: Oriented X 3. No motor deficit No generalized lymph adenopathy Psych normal affect Results Findings/Data: Laboratory Tests 02/26 02/26 02/26 1149 0410 0410 Chemistry Sodium (134 - 147 mmol/L) 143 Potassium (3.4 - 5.0 mmol/L) 4.3 Chloride (100 - 108 mmol/L) 111 H Carbon Dioxide (21 - 32 mmol/L) 30 Anion Gap (4.0 - 15.0 GAP calc) 2.0 L BUN (7 - 18 MG/DL) 5 L Creatinine (0.6 - 1.0 MG/DL) 0.6 Glomerular Filtr Rate (>60 estGFR) >=60 max est imate Glucose (70 - 110 MG/DL) 108 POC Glucose (70 - 110 mg/dL) 131 H Calcium (8.5 - 10.1 MG/DL) 8.0 L Phosphorus (2.5 - 4.9 MG/DL) 3.8 Magnesium (1.8 - 2.4 MG/DL) 2.1 Total Bilirubin (0.2 - 1.2 MG/DL) 0.40 AST (15 - 37 Unit/L) 67 H ALT (12 - 78 Unit/L) 104 H Total Alk Phosphatase (45 - 117 Unit/L) 85 Troponin I (0.000 - 0.045 NG/ML) < 0.015 Total Protein (6.4 - 8.2 G/DL) 6.1 L Albumin (3.4 - 5.0 G/DL) 3.1 L Globulin (GM/dL) 3.0 Albumin/Globulin Ratio (1.2 - 2.2 RATIO) 1.0 L Laboratory Tests 02/26 0410 Hematology WBC (3.5 - 11.0 K/mm3) 3.9 RBC (4.70 - 6.10 M/mm3) 3.81 L Hgb (10.4 - 14.9 G/DL) 12.5 Hct (31.5 - 44.1 %) 37.3 MCV (84.5 - 98.6 Fl) 97.9 MCH (27.0 - 34.2 pg) 32.8 MCHC (31.5 - 34.0 G/DL) 33.5 RDW (11.5 - 14.5 SD) 12.2 Plt Count (150 - 450 K/mm3) 140 L MPV (7.0 - 10.5 fL) 10.40 Neut % (Auto) (40 - 76 %) 64.6 Lymph % (Auto) (20.5 - 51.1 %) 28.9 [place] % (Auto) (1.7 - 9.3 %) 5.4 Eos % (Auto) (0.0 - 6.0 %) 0.3 Baso % (Auto) (0.0 - 2.0 %) 0.3 Neut # (Auto) (1.8 - 7.6 K/mm3) 2.5 Lymph # (Auto) (0.6 - 3.2 K/mm3) 1.1 [place] # (Auto) (0.3 - 1.1 K/mm3) 0.2 L Eos # (Auto) (0.0 - 0.4 K/mm3) 0.0 Baso # (Auto) (0.0 - 0.1 K/mm3) 0.0 Abs Immat Gran (auto) (0.00 - 0.03 x10 3/uL) 0. 02 Add Manual Diff (CRITERIA DIFF/SCN) NO Immature Gran % (0.0 - 5.0 %) 0.5 Nucleated RBC % (0.0 - 1.0 /100WBC%) 0.0 Laboratory Tests 02/26 0410 Toxicology Ethyl Alcohol (0 - 10 MG/DL) < 3 Microbiology Date/Time Procedure - Status Source Growth 02/25 1700 MRSA Screen - COMP NASAL Radiology data: Recent Impressions: MAGNETIC RESONANCE IMAGING - MRI MRCP 02/25 1800 Report Impression - Status: SIGNED Entered: 02/25/2021 1908 IMPRESSION: 1. No evidence of cholelithiasis or cholecystiti s. 2. No evidence of choledocholithiasis. No biliar y dilatation. Impression By: [email or web address] - Shanna Redding MD Diagnosis, Assessment Plan Free Text DxA P Notes Free text DxA P notes: Right upper quadrant pain with transaminitis Differentials could be gastr itis esophagitis with history of alcoholism chronic prednisone use, peptic ulcer disease versus some biliary tree pathology even though AST ALT are not that abnormal alk juancarlos phosphatase within normal range. The other pathology could be marijuana induced c yclical vomiting syndrome nauseous or vomiting that much. Patient does have history of Crohn's disease priscila l need to get the records and might need further work-up a s patient has been having some diarrhea as well but denies any blood in them. Other pathology could be some autoimmune hepatit is We will get MRCP GI was consulted in the ER will follow up with kali denton Meanwhile continue with PPI clear liquid diet ad torres as tolerated Symptom control Alcohol use Patient mentions that she drinks 4-5 beers per d ay Continue thiamine multivitamin folate Monitor for withdrawal with Ativan guided by CIW A score Rheumatoid arthritis Continue with patient prednisone will need outpa tient rheumatology follow-up Hypertension Resume patient home medication Dyslipidemia Continue with statin Patient has slight thrombocytopenia could be rel ated to alcohol use. At this point will continue with DVT prophylaxis but if starts going down then will stop heparin subcu Sleep apnea continue with patient CPAP DVT GI prophylaxis Patient is full code Patient was explained the plan in detail all med ication rec side effects were discussed all was answered she agreed with the p andra 2021 Patient has a history of Quispe's esophagus Continue PPI Appreciate help from GI Getting a HIDA scan Pain control MRCP findings noted Continue home medications and titrate as needed Trend LFTs Awaiting further recommendations from GI Electronically Signed by Shadi Carcamo MD on at 1533 RPT #: [id number] END OF REPORT 2021-02-25 17:16:00-00:00 [facility] ([facility]) Hospitalist History Physical REPORT#:[id number] REPORT STATUS: Signed DATE:02/25/21 TIME:171 PATIENT: RO MAYNARD UNIT #: [id number] ROOM/BED: [place] [address] : 63 AGE: 55 SEX: F ATTEND: Xiomara Antunez MD ADM AUTHOR: Jaiden Antnuez MD * ALL edits or amendments must be made on the [facility]/computer document * History of Present Illness HPI Chief complaint: Right upper quadrant pain PCP: PCP: Shawna Escalante MD HPI: This is 55-year-old lady who came in with complains of right upper quadrant pain for 1 week. Initially pain s tarted in the right upper quadrant but then started to radiate down in the flank into the back colic ky in nature intermittent associated with nausea and f ew episodes of vomiting she is also has been having loose bowel movements 6-8 times per day. She is also getting some cramping all over the body. For these complaints she went to an ER yesterday and the CAT scan was negative as per the patient and was sen t home but then patient continued to have these symptoms so saw her PCP and the PCP discussed with GI who recommended inpatient admission and work-up. Patient denies any fever headache sore throat co ugh chest pain palpitations shortness of breath any problem in the urine any numbness of hands or feet or any weakness. Patient states that she has history of Crohn's disease diagnosed 15 years ago in [place] but for the pa st 4 years she has not been able to get her treated since she moved to [place] She also has rheumatoid arthritis for which she is on chronic prednisone. History Past Medical Surgical Hx Additional medical history: Crohn's disease diagnosed 15 years ago as per e patient Rheumatoid arthritis Sleep apnea Dyslipidemia Hypertension Additional surgical history: Hysterectomy Appendicectomy Bladder sling surgery Kyphoplasty Tonsillectomy Family History Additional family history: Reviewed not significant in this patient's care Social History Alcohol use: Alcohol use (15 or more drinks per week) Drug use: Marijuana Smoking status: Smoking status for patients 13 years old or old er: Current every day smoker Medication/Allergy-Vaccine Hx Medications: Home Medications: predniSONE 10 MG PO DAILY ATORVASTATIN (LIPITOR) 20 MG PO DAILY LOSARTAN (COZAAR) 50 MG PO DAILY PARoxetine HCL (PAXIL) 10 MG PO QAM Allergies: Coded Allergies: Sulfa (Sulfonamide Antibiotics) (THRUSH 02/25/21 ) Review of Systems All systems rev neg: except as noted Physical Exam VS/I O: Vital Signs Date Temp Pulse Resp B/P B/P Mean Pulse Ox FiO2 02/25 36.5 72 18 130/69 89 100 Last Documented: Result Date Time Pulse Ox 100 / 1304 B/P 130/69 / 1304 B/P Mean 89 / 1304 O2 Delivery Room air 02/25 1304 Temp 36.5 / 1304 Pulse 72 07/ 1304 Resp 18 / 1304 Patient Weight and BMI Weight (kg): 59.091 BMI: 23.1 Results Findings/Data: Laboratory Tests: 02/25 02/25 1514 1350 Chemistry Sodium (134 - 147 mmol/L) 140 Potassium (3.4 - 5.0 mmol/L) 3.8 Chloride (100 - 108 mmol/L) 105 Carbon Dioxide (21 - 32 mmol/L) 32 Anion Gap (4.0 - 15.0 GAP calc) 3.0 L BUN (7 - 18 MG/DL) 7 Creatinine (0.6 - 1.0 MG/DL) 0.8 Glomerular Filtr Rate (>60 estGFR) >=60 max est imate Glucose (70 - 110 MG/DL) 83 Calcium (8.5 - 10.1 MG/DL) 8.7 Total Bilirubin (0.2 - 1.2 MG/DL) 0.50 Direct Bilirubin (0.00 - 0.30 MG/DL) 0.20 Indirect Bilirubin (0.2 - 1.2 MG/DL) 0.30 AST (15 - 37 Unit/L) 89 H ALT (12 - 78 Unit/L) 121 H Total Alk Phosphatase (45 - 117 Unit/L) 93 Total Protein (6.4 - 8.2 G/DL) 6.9 Albumin (3.4 - 5.0 G/DL) 3.5 Lipase (114 - 286 Unit/L) 95 L Hematology WBC (3.5 - 11.0 K/mm3) 5.3 RBC (4.70 - 6.10 M/mm3) 3.95 L Hgb (10.4 - 14.9 G/DL) 13.0 Hct (31.5 - 44.1 %) 38.7 MCV (84.5 - 98.6 Fl) 98.0 MCH (27.0 - 34.2 pg) 32.9 MCHC (31.5 - 34.0 G/DL) 33.6 RDW (11.5 - 14.5 SD) 11.9 Plt Count (150 - 450 K/mm3) 136 L MPV (7.0 - 10.5 fL) 10.20 Neut % (Auto) (40 - 76 %) 57.4 Lymph % (Auto) (20.5 - 51.1 %) 33.6 Davie % (Auto) (1.7 - 9.3 %) 7.4 Eos % (Auto) (0.0 - 6.0 %) 0.8 Baso % (Auto) (0.0 - 2.0 %) 0.2 Neut # (Auto) (1.8 - 7.6 K/mm3) 3.1 Lymph # (Auto) (0.6 - 3.2 K/mm3) 1.8 Davie # (Auto) (0.3 - 1.1 K/mm3) 0.4 Eos # (Auto) (0.0 - 0.4 K/mm3) 0.0 Baso # (Auto) (0.0 - 0.1 K/mm3) 0.0 Abs Immat Gran (auto) (0.00 - 0.03 x10 3/uL) 0. 03 Add Manual Diff (CRITERIA DIFF/SCN) NO Immature Gran % (0.0 - 5.0 %) 0.6 Nucleated RBC % (0.0 - 1.0 /100WBC%) 0.0 Platelet Estimate (ADEQUATE THOUSAND) ADEQUATE Plt Morphology Comment NORMAL Serology SARS-CoV-2 Ag (Rapid) (Negative) NEGATIVE 02/25 1320 Urines Urine Color (YEL/STRAW discript) YELLOW Urine Appearance (CLEAR discript) CLEAR Urine pH (5.0 - 7.0 pH UNITS) 7.0 Ur Specific [place] (1.005 - 1.030 SG) <=1.005 Urine Protein (NEG mg/dL) NEGATIVE Urine Glucose (UA) (NEG mg/dL) NEGATIVE Urine Ketones (NEG mg/dL) NEGATIVE Urine Blood (NEG mg/DL) NEGATIVE Urine Nitrite (NEG SCREEN) NEGATIVE Urine Bilirubin (NEG mg/dL) NEGATIVE Urine Urobilinogen (<2.0 mg/dL) 0.2 Ur Leukocyte Esterase (NEGATIVE Leuk/mcL) NEGAT VALENCIA Urine Culture Screen (Culture CHK Criteria) NO, WBC<10 Laboratory Tests 02/25/21 1350: [Embedded Image Not Available] Results: labs reviewed, current med profile rev' d Free Text PE Notes Free Text PE Notes: Physical examination Patient is a pleasant person lying on the bed does not appear to be in distress HEENT pupils equal round reactive light and acco mmodating normocephalic/ atraumatic skull normal oral mucosa Neck supple no JVD Chest clear bilateral entry no wheeze or crackle s CVS S1-S2 no murmur rubs or gallop Abdomen soft some tenderness in the right upper quadrant no guarding no rigidity bowel sounds positive Extremities no pedal edema pulses palpable DOWEL POINTER alert oriented x3 moving all 4 extremities n o focal deficit identified Psych examination normal mood no suicidal homici quinton ideation Diagnosis, Assessment Plan Free Text A P: Right upper quadrant pain with transaminitis Differentials could be gastr itis esophagitis with history of alcoholism chronic prednisone use, peptic ulcer disease versus some biliary tree pathology even though AST ALT are not that abnormal alk juancarlos phosphatase within normal range. The other pathology could be marijuana induced c yclical vomiting syndrome nauseous or vomiting that much. Patient does have history of Crohn's disease priscila l need to get the records and might need further work-up a s patient has been having some diarrhea as well but denies any blood in them. Other pathology could be some autoimmune hepatit is We will get MRCP GI was consulted in the ER will follow up with t hem Meanwhile continue with PPI clear liquid diet ad torres as tolerated Symptom control Alcohol use Patient mentions that she drinks 4-5 beers per d ay Continue thiamine multivitamin folate Monitor for withdrawal with Ativan guided by CIW A score Rheumatoid arthritis Continue with patient prednisone will need outpa tient rheumatology follow-up Hypertension Resume patient home medication Dyslipidemia Continue with statin Patient has slight thrombocytopenia could be rel ated to alcohol use. At this point will continue with DVT prophylaxis but if starts going down then will stop heparin subcu Sleep apnea continue with patient CPAP DVT GI prophylaxis Patient is full code Patient was explained the plan in detail all med ication rec side effects were discussed all was answered she agreed with the p andra Electronically Signed by Jaiden Antunez MD on at 1725 RPT #: [id number] END OF REPORT 2021-02-25 13:33:00-00:00 [facility] ([facility]) EMERGENCY PROVIDER REPORT REPORT#:[id number] REPORT STATUS: Signed DATE:02/25/21 TIME:1333 PATIENT: RO MAYNARD UNIT #: [id number] ROOM/BED: [place] [address] : 63 AGE: 55 SEX: F PCP PHYS: Willian Escalante MD SERVICE AUTHOR: Bhavna Mulligan * ALL edits or amendments must be made on the el ectronic/computer document * HPI-Abd Pain F 40 and Over General Initial Greet Date/Time 02/25/21 1309 Presentation Chief Complaint Abdominal pain Sudden in Onset? No Free Text HPI Notes Free Text HPI Notes 55-year-old female past [facility] history of rheumatoid arthritis, Crohn's disease , hepatitis C status post hy sterectomy, appendectomy, and bladder sling surgery reports to ED complaining of right-sided abdominal pain for the past week which is getting worse she says it now radiates to her periumbilical area. She has associated nausea, vomiting, and diarrhea. She w as seen and evaluated at [place] [facility] yesterday where s he had an ultrasound and a CT. Patient states there were no gallstones but does not note any further particulars on the results. She followed up with her PCP, Dr John Escalante, today in clinic who advised her to come to [facility] ER for further work-up and asked the ED physician to call Dr. Ramirez home Dr. Escalante has already spoken with, for poss ible HIDA scan. Risk-Abd Pain F 40 and Over )( Abdominal Aortic Aneurysm Risk factors review ed, No risk factors Review of Systems Focused Review of Systems Constitutional Denies: Chills, Fever. Respiratory Denies: Cough, non-productive, Cough, productive , Shortness of breath. Cardiovascular Denies: Chest pain, Edema. GI Reports: Abdominal pain, Diarrhea, Nausea, Vomit ing. Female Denies: Dysuria, Flank pain. Musculoskeletal Reports: Back pain. Denies: Extremity pain, Extr emity swelling. Additional Review of Systems Skin Denies: Rash, Swelling. Neurologic Denies: Headache, Lightheaded. Past Medical History - Adult Stated Complaint SEVERE ADB PAIN, REFER BYDR TO COME TO ER Allergies Coded Allergies: Sulfa (Sulfonamide Antibiotics) (THRUSH 02/25/21 ) Alcohol Use Denies EtOH use Drug Use Denies recreational drugs Smoking status: Smoking status for patients 13 years old or old er: Current every day smoker Physical Exam Vital Signs Vital Signs First Documented: Result Date Time Pulse Ox 100 02/25 1304 B/P 130/69 / 1304 B/P Mean 89 / 1304 O2 Delivery Room air 02/25 1304 Temp 36.5 / 1304 Pulse 72 02/25 1304 Resp 18 02/25 1304 Last Documented: Result Date Time Pulse Ox 100 02/25 1304 B/P 130/69 / 1304 B/P Mean 89 / 1304 O2 Delivery Room air / 1304 Temp 36.5 07/ 1304 Pulse 72 02/25 1304 Resp 18 02/25 1304 Review of Vital Signs Reviewed Focused PE General/Const General/Const Awake, Alert, No acute di stress, Well appearing, Well developed , Well hydrated, Well nourished, Cooperative, No t toxic appearing MS Head Head Atraumatic, Normocephalic Eyes Eyes No periorbital redness, No periorbital swe lling, No scleral icterus, Conjunctiva NL Ears/Nose/Throat Ears/Nose/Throat Airway patent, Mucous membrane s moist Resp/Chest Respiratory/Chest No respiratory distress, No s tridor Cardiovascular Cardiovascular Heart rate NL, Peripheral circul ation NL Abdomen/GI Abdomen/GI Soft, McBurney's non-tender, No guar ding, No rebound, BS normoactive, No distention Text/Dict Notes Right upper quadrant tenderness palpation with g uarding. MS Back Back Inspection NL, Non-tender, No CVA tenderne ss Skin Skin Color NL, Warm, Dry Neurologic Neurologic Oriented X3, Speech NL, No motor def icits, Gait NL Interpretation Diagnostics Lab Results Interpretation Results Laboratory Tests 02/25/21 1350: [Embedded Image Not Available] Laboratory Tests: 02/25 02/25 1350 1320 Chemistry Sodium (134 - 147 mmol/L) 140 Potassium (3.4 - 5.0 mmol/L) 3.8 Chloride (100 - 108 mmol/L) 105 Carbon Dioxide (21 - 32 mmol/L) 32 Anion Gap (4.0 - 15.0 GAP calc) 3.0 L BUN (7 - 18 MG/DL) 7 Creatinine (0.6 - 1.0 MG/DL) 0.8 Glomerular Filtr Rate (>60 estGFR) >=60 max est imate Glucose (70 - 110 MG/DL) 83 Calcium (8.5 - 10.1 MG/DL) 8.7 Total Bilirubin (0.2 - 1.2 MG/DL) 0.50 Direct Bilirubin (0.00 - 0.30 MG/DL) 0.20 Indirect Bilirubin (0.2 - 1.2 MG/DL) 0.30 AST (15 - 37 Unit/L) 89 H ALT (12 - 78 Unit/L) 121 H Total Alk Phosphatase (45 - 117 Unit/L) 93 Total Protein (6.4 - 8.2 G/DL) 6.9 Albumin (3.4 - 5.0 G/DL) 3.5 Lipase (114 - 286 Unit/L) 95 L Hematology WBC (3.5 - 11.0 K/mm3) 5.3 RBC (4.70 - 6.10 M/mm3) 3.95 L Hgb (10.4 - 14.9 G/DL) 13.0 Hct (31.5 - 44.1 %) 38.7 MCV (84.5 - 98.6 Fl) 98.0 MCH (27.0 - 34.2 pg) 32.9 MCHC (31.5 - 34.0 G/DL) 33.6 RDW (11.5 - 14.5 SD) 11.9 Neut % (Auto) (40 - 76 %) 57.4 Lymph % (Auto) (20.5 - 51.1 %) 33.6 Davie % (Auto) (1.7 - 9.3 %) 7.4 Eos % (Auto) (0.0 - 6.0 %) 0.8 Baso % (Auto) (0.0 - 2.0 %) 0.2 Neut # (Auto) (1.8 - 7.6 K/mm3) 3.1 Lymph # (Auto) (0.6 - 3.2 K/mm3) 1.8 Davie # (Auto) (0.3 - 1.1 K/mm3) 0.4 Eos # (Auto) (0.0 - 0.4 K/mm3) 0.0 Baso # (Auto) (0.0 - 0.1 K/mm3) 0.0 Abs Immat Gran (auto) (0.00 - 0.03 x10 3/uL) 0. 03 Immature Gran % (0.0 - 5.0 %) 0.6 Nucleated RBC % (0.0 - 1.0 /100WBC%) 0.0 Urines Urine Color (YEL/STRAW discript) YELLOW Urine Appearance (CLEAR discript) CLEAR Urine pH (5.0 - 7.0 pH UNITS) 7.0 Ur Specific [place] (1.005 - 1.030 SG) <=1.005 Urine Protein (NEG mg/dL) NEGATIVE Urine Glucose (UA) (NEG mg/dL) NEGATIVE Urine Ketones (NEG mg/dL) NEGATIVE Urine Blood (NEG mg/DL) NEGATIVE Urine Nitrite (NEG SCREEN) NEGATIVE Urine Bilirubin (NEG mg/dL) NEGATIVE Urine Urobilinogen (<2.0 mg/dL) 0.2 Ur Leukocyte Esterase (NEGATIVE Leuk/mcL) NEGAT VALENCIA Urine Culture Screen (Culture CHK Criteria) NO, WBC<10 Microbiology: Date/Time Procedure - Status Source Growth 02/25 1530 MRSA Screen - ORD NASAL Lab Statement Laboratory studies reviewed and considered in e medical decision-making. Re-Evaluation MDM Free Text MDM Notes Free Text MDM Notes Code status while in the ER was full code . Goals of care were discussed in the ED with patient and/or family [facility] updated on admission of code status in ER. 1530: Patient's pain continues. She has right up per quadrant tenderness to palpation with guarding. She is asking for addit ional pain medications. We will go ahead and order that. ED Course Medication(s) Ordered Medication(s) Ordered: Central Nervous System Agents Sig/Jasmina Start time Last Medication Dose Route Stop Time Status Admin Morphine Sulfate 4 MG X1ED STA 02/25 1315 DC IV 02/25 1316 1343 Electrolytic, Caloric, And Terrie Sig/Jasmina Start time Last Medication Dose Route Stop Time Status Admin Sodium Chloride 1,000 ML X1ED STA 02/25 1315 DC 02/25 IV 02/25 1415 1342 Gastrointestinal Drugs Sig/Jasmina Start time Last Medication Dose Route Stop Time Status Admin Ondansetron HCl 4 MG X1ED PRN PRN 02/25 1315 DC 02/25 IV 02/26 1314 1342 Consultation Consultation Referral/Consult Name Dawson Ramírez MD Quality Assurance Coach Called Gastroenterology Requested Call Time 1448 Requested Call Date 02/25/21 Call Returned Call returned Call Returned Time 1505 Call Returned Date 02/25/21 Quality Assurance Coach Will see patient, Agrees with plan Free Text Consult Notes 15:20: called back with imaging results from [facility]. Wants patient admitted and MRCP, he will consult. Patient Discharge Departure Vital Signs/Condition Vital Signs First Documented: Result Date Time Pulse Ox 100 02/25 1304 B/P 130/69 / 1304 B/P Mean 89 / 1304 O2 Delivery Room air 02/25 1304 Temp 36.5 02/25 1304 Pulse 72 02/25 1304 Resp 18 02/25 1304 Last Documented: Result Date Time Pulse Ox 100 02/25 1304 B/P 130/69 / 1304 B/P Mean 89 / 1304 O2 Delivery Room air 02/25 1304 Temp 36.5 02/25 1304 Pulse 72 02/25 1304 Resp 18 02/25 1304 All vital signs available at the time of this en try have been reviewed. Condition Stable Clinical Impression Clinical Impression Primary Impression: Abdominal pain Disposition Decision Admit Admit Physician Name Jaiden Antunez MD Admit Physician Hospitalist Request Time 153 Request Date 02/25/21 )( Admission Accepts Yes )( Accepted Time 153 )( Accepted Date 02/25/21 Call Information will see patient, agrees with eval, agrees with plan Discharge/Care Plan Counseled Regarding Diagnosis, Lab results, Need for admission Admit Note I have spoken with the patie nt and/or caregivers. I have explained the patient's condition, diagnoses and jen atment plan based on the information available to me at this time. I have answered the patient's and/ or caregiver's questions and addressed any concerns. The patient and/or careg alexi have as good an understanding of the patient 's diagnosis, condition and treatment plan as can be expected at this point. The patient has been stabilized within the capability of the emergency department. The patient wi ll be transported for further care and management or will be moved to an observation or inpatient service. I have communicated with the staff or medical p ractitioner taking over this patient's care. Electronically Signed by Bhavna Mulligan on 09/17 at 1536 RPT #: [id number] END OF REPORT 2021-02-25 13:33:00-00:00 [facility] ([facility]) EMERGENCY PROVIDER REPORT REPORT#:[id number] REPORT STATUS: Signed DATE:02/25/21 TIME:1332 PATIENT: RO MAYNARD UNIT #: [id number] ROOM/BED: [place] [address] : 63 AGE: 55 SEX: F PCP PHYS: Ra noemi Escalante MD SERVICE AUTHOR: Bhavna Mulligan * ALL edits or amendments must be made on the el ectronic/computer document * Bhavna Mulligan 02/25/21 1333: HPI-Abd Pain F 40 and Over General Initial Greet Date/Time 02/25/21 1309 Presentation Chief Complaint Abdominal pain Sudden in Onset? No Free Text HPI Notes Free Text HPI Notes 55-year-old female past [facility] history of rheumatoid arthritis, Crohn's disease , hepatitis C status post hy sterectomy, appendectomy, and bladder sling surgery reports to ED complaining of right-sided abdominal pain for the past week which is getting worse she says it now radiates to her periumbilical area. She has associated nausea, vomiting, and diarrhea. She w as seen and evaluated at [place] [facility] yesterday where s he had an ultrasound and a CT. Patient states there were no gallstones but does not note any further particulars on the results. She followed up with her PCP, Dr John Escalante, today in clinic who advised her to come to [facility] ER for further work-up and asked the ED physician to call Dr. Ramirez home Dr. Escalante has already spoken with, for poss ible HIDA scan. Risk-Abd Pain F 40 and Over )( Abdominal Aortic Aneurysm Risk factors review ed, No risk factors Review of Systems Focused Review of Systems Constitutional Denies: Chills, Fever. Respiratory Denies: Cough, non-productive, Cough, productive , Shortness of breath. Cardiovascular Denies: Chest pain, Edema. GI Reports: Abdominal pain, Diarrhea, Nausea, Vomit ing. Female Denies: Dysuria, Flank pain. Musculoskeletal Reports: Back pain. Denies: Extremity pain, Extr emity swelling. Additional Review of Systems Skin Denies: Rash, Swelling. Neurologic Denies: Headache, Lightheaded. Past Medical History - Adult Stated Complaint SEVERE ADB PAIN, REFER BYDR TO COME TO ER Allergies Coded Allergies: Sulfa (Sulfonamide Antibiotics) (THRUSH 02/25/21 ) Alcohol Use Denies EtOH use Drug Use Denies recreational drugs Smoking status: Smoking status for patients 13 years old or old er: Current every day smoker Physical Exam Vital Signs Vital Signs First Documented: Result Date Time Pulse Ox 100 02/25 1304 B/P 130/69 02/25 1304 B/P Mean 89 02/25 1304 O2 Delivery Room air 02/25 1304 Temp 36.5 02/25 1304 Pulse 72 02/25 1304 Resp 18 02/25 1304 Last Documented: Result Date Time Pulse Ox 100 02/25 1304 B/P 130/69 02/25 1304 B/P Mean 89 02/25 1304 O2 Delivery Room air 02/25 1304 Temp 36.5 02/25 1304 Pulse 72 02/25 1304 Resp 18 02/25 1304 Review of Vital Signs Reviewed Focused PE General/Const General/Const Awake, Alert, No acute di stress, Well appearing, Well developed , Well hydrated, Well nourished, Cooperative, No t toxic appearing MS Head Head Atraumatic, Normocephalic Eyes Eyes No periorbital redness, No periorbital swe lling, No scleral icterus, Conjunctiva NL Ears/Nose/Throat Ears/Nose/Throat Airway patent, Mucous membrane s moist Resp/Chest Respiratory/Chest No respiratory distress, No s tridor Cardiovascular Cardiovascular Heart rate NL, Peripheral circul ation NL Abdomen/GI Abdomen/GI Soft, McBurney's non-tender, No guar ding, No rebound, BS normoactive, No distention Text/Dict Notes Right upper quadrant tenderness palpation with g uarding. MS Back Back Inspection NL, Non-tender, No CVA tenderne ss Skin Skin Color NL, Warm, Dry Neurologic Neurologic Oriented X3, Speech NL, No motor def icits, Gait NL Interpretation Diagnostics Lab Results Interpretation Results Laboratory Tests 02/25/21 1350: [Embedded Image Not Available] Laboratory Tests: 02/25 02/25 1514 1350 Chemistry Sodium (134 - 147 mmol/L) 140 Potassium (3.4 - 5.0 mmol/L) 3.8 Chloride (100 - 108 mmol/L) 105 Carbon Dioxide (21 - 32 mmol/L) 32 Anion Gap (4.0 - 15.0 GAP calc) 3.0 L BUN (7 - 18 MG/DL) 7 Creatinine (0.6 - 1.0 MG/DL) 0.8 Glomerular Filtr Rate (>60 estGFR) >=60 max est imate Glucose (70 - 110 MG/DL) 83 Calcium (8.5 - 10.1 MG/DL) 8.7 Total Bilirubin (0.2 - 1.2 MG/DL) 0.50 Direct Bilirubin (0.00 - 0.30 MG/DL) 0.20 Indirect Bilirubin (0.2 - 1.2 MG/DL) 0.30 AST (15 - 37 Unit/L) 89 H ALT (12 - 78 Unit/L) 121 H Total Alk Phosphatase (45 - 117 Unit/L) 93 Total Protein (6.4 - 8.2 G/DL) 6.9 Albumin (3.4 - 5.0 G/DL) 3.5 Lipase (114 - 286 Unit/L) 95 L Hematology WBC (3.5 - 11.0 K/mm3) 5.3 RBC (4.70 - 6.10 M/mm3) 3.95 L Hgb (10.4 - 14.9 G/DL) 13.0 Hct (31.5 - 44.1 %) 38.7 MCV (84.5 - 98.6 Fl) 98.0 MCH (27.0 - 34.2 pg) 32.9 MCHC (31.5 - 34.0 G/DL) 33.6 RDW (11.5 - 14.5 SD) 11.9 Plt Count (150 - 450 K/mm3) 136 L MPV (7.0 - 10.5 fL) 10.20 Neut % (Auto) (40 - 76 %) 57.4 Lymph % (Auto) (20.5 - 51.1 %) 33.6 Davie % (Auto) (1.7 - 9.3 %) 7.4 Eos % (Auto) (0.0 - 6.0 %) 0.8 Baso % (Auto) (0.0 - 2.0 %) 0.2 Neut # (Auto) (1.8 - 7.6 K/mm3) 3.1 Lymph # (Auto) (0.6 - 3.2 K/mm3) 1.8 Davie # (Auto) (0.3 - 1.1 K/mm3) 0.4 Eos # (Auto) (0.0 - 0.4 K/mm3) 0.0 Baso # (Auto) (0.0 - 0.1 K/mm3) 0.0 Abs Immat Gran (auto) (0.00 - 0.03 x10 3/uL) 0. 03 Add Manual Diff (CRITERIA DIFF/SCN) NO Immature Gran % (0.0 - 5.0 %) 0.6 Nucleated RBC % (0.0 - 1.0 /100WBC%) 0.0 Platelet Estimate (ADEQUATE THOUSAND) ADEQUATE Plt Morphology Comment NORMAL Serology SARS-CoV-2 Ag (Rapid) (Negative) NEGATIVE 02/25 1320 Urines Urine Color (YEL/STRAW discript) YELLOW Urine Appearance (CLEAR discript) CLEAR Urine pH (5.0 - 7.0 pH UNITS) 7.0 Ur Specific [place] (1.005 - 1.030 SG) <=1.005 Urine Protein (NEG mg/dL) NEGATIVE Urine Glucose (UA) (NEG mg/dL) NEGATIVE Urine Ketones (NEG mg/dL) NEGATIVE Urine Blood (NEG mg/DL) NEGATIVE Urine Nitrite (NEG SCREEN) NEGATIVE Urine Bilirubin (NEG mg/dL) NEGATIVE Urine Urobilinogen (<2.0 mg/dL) 0.2 Ur Leukocyte Esterase (NEGATIVE Leuk/mcL) NEGAT VAL[place]IA Urine Culture Screen (Culture CHK Criteria) NO, WBC<10 Lab Statement Laboratory studies reviewed and considered in e medical decision-making. Re-Evaluation MDM Free Text MDM Notes Free Text MDM Notes Code status while in the ER was full code . Goals of care were discussed in the ED with patient and/or family and hospit alist was updated on admission of code status in ER. 1530: Patient's pain continues. She has right up per quadrant tenderness to palpation with guarding. She is asking for addit ional pain medications. We will go ahead and order that. ED Course Medication(s) Ordered Medication(s) Ordered: Central Nervous System Agents Sig/Jasmina Start time Last Medication Dose Route Stop Time Status Admin Morphine Sulfate 4 MG X1ED STA 02/25 1315 DC IV 02/25 1316 1343 Electrolytic, Caloric, And Terrie Sig/Jasmina Start time Last Medication Dose Route Stop Time Status Admin Sodium Chloride 1,000 ML X1ED STA 02/25 1315 DC 02/25 IV 02/25 1415 1342 Gastrointestinal Drugs Sig/Jasmina Start time Last Medication Dose Route Stop Time Status Admin Ondansetron HCl 4 MG X1ED PRN PRN 02/25 1315 DC 02/25 IV 02/26 1314 1342 Consultation Consultation Referral/Consult Name Dawson Ramírez MD Quality Assurance Coach Called Gastroenterology Requested Call Time 1448 Requested Call Date 02/25/21 Call Returned Call returned Call Returned Time 1505 Call Returned Date 02/25/21 Quality Assurance Coach Will see patient, Agrees with plan Free Text Consult Notes 15:20: called back with imaging results from [facility]. Wants patient admitted and MRCP, he will consult. Patient Discharge Departure Vital Signs/Condition Vital Signs First Documented: Result Date Time Pulse Ox 100 02/25 1304 B/P 130/69 07/ 1304 B/P Mean 89 07/ 1304 O2 Delivery Room air 02/25 1304 Temp 36.5 07/ 1304 Pulse 72 07/ 1304 Resp 18 02/25 1304 Last Documented: Result Date Time Pulse Ox 100 07/ 1304 B/P 130/69 07/ 1304 B/P Mean 89 / 1304 O2 Delivery Room air 02/25 1304 Temp 36.5 07/ 1304 Pulse 72 07/ 1304 Resp 18 02/25 1304 All vital signs available at the time of this en try have been reviewed. Condition Stable Clinical Impression Clinical Impression Primary Impression: Abdominal pain Disposition Decision Admit Admit Physician Name Jaiden Antunez MD Admit Physician Hospitalist Request Time 1532 Request Date 02/25/21 )( Admission Accepts Yes )( Accepted Time 1532 )( Accepted Date 02/25/21 Call Information will see patient, agrees with eval, agrees with plan Discharge/Care Plan Counseled Regarding Diagnosis, Lab results, Need for admission Admit Note I have spoken with the patie nt and/or caregivers. I have explained the patient's condition, diagnoses and jen atment plan based on the information available to me at this time. I have answered the patient's and/ or caregiver's questions and addressed any concerns. The patient and/or careg alexi have as good an understanding of the patient 's diagnosis, condition and treatment plan as can be expected at this point. The patient has been stabilized within the capability of the emergency department. The patient wi ll be transported for further care and management or will be moved to an observation or inpatient service. I have communicated with the staff or medical p racmanishaer taking over this patient's care. Ezekiel Prakash 02/25/21 1840: Past Medical History - Adult Home Medications Reported Medications predniSONE 10 MG PO DAILY ATORVASTATIN (LIPITOR) 20 MG PO DAILY LOSARTAN (COZAAR) 50 MG PO DAILY PARoxetine HCL (PAXIL) 10 MG PO QAM Patient Discharge Departure Supervising Physician Note MidLv Saw Pt Alone I have reviewed the PA/TEMPLATE INSPECTOR's note and plan of car e. I was available for consultation as needed at al l times during the patient's visit in the emergency department. I agree with the clinical impression , plan and disposition. Electronically Signed by Bhavna Mulligan on 09/17 at 1536 Electronically Signed by Ezekiel Prakash DO on 09/17 at 8298 RPT #: [id number] END OF REPORT
[2023-01-17 14:11] LABS: Specific Gravity 1.006 (1.005-1.030); Urine Bilirubin NEGATIVE (Negative); Urine Blood Negative (Negative); Urine Clarity Clear (Clear); Urine Color Colorless (Yellow); Urine Glucose NEGATIVE (Negative); Urine Protein NEGATIVE (Negative); Urine Urobilinogen Normal (Normal); Urine pH 5.5 (5.0-7.0)
[2023-01-17 14:13] LABS: Specific Gravity 1.006 (1.005-1.030)
[2023-01-17 14:19] LABS: Absolute Lymphocytes (CBC) 3.9 K/uL (0.7-4.9); Hematocrit 41.6 % (36.0-45.0); Lymphocytes % 54.5 % (15.3-44.8); MCV 92.9 fL (80-100); MPV 8.3 fL (7.6-11.3); RBC Red Blood Cell Count 4.47 M/uL (3.86-4.86)
[2023-01-17 14:34] LABS: Albumin 3.6 g/dL (3.4-5.0); Bilirubin Total 0.4 mg/dL (0.2-1.0); Potassium 3.9 mEq/L (3.5-5.1); Protein, Total 7.3 g/dL (6.4-8.2)
[2023-01-17] MEDS ORDERED: MORPHINE 4 MG/ML SYR ONE (14:34)
[2023-01-17] MEDS ORDERED: NA CHLORIDE 0.9% 1,000 ML ONE (14:35)
[2023-01-17] MEDS ORDERED: ONDANSETRON 4 MG/2 ML VIAL ONE (14:35)
--- NOTE | 2023-01-17 16:01 | RAD REPORT ---
EXAM DESCRIPTION: CT - Abdomen Pelvis W Contrast - 01/17/2023 3:06 pm CLINICAL HISTORY: ABD PAIN COMPARISON: Abdomen Pelvis W Contrast dated 08/19/2021; Abdomen Pelvis W Contrast dated 08/14/20; Abdomen Pelvis W Contrast dated 02/22/2021; Abdomen Pelvis W Contrast dated 09/16/2020 TECHNIQUE: Thin cut axial CT imaging of the abdomen and pelvis was performed following intravenous a dministration of 100 mL Isovue 300. Multiplanar reformats were generated and reviewed. All CT scans are performed using dose optimization technique as appropriate and may include automated exposure control or mA/KV adjustment according to patient size. FINDINGS: No suspicious findings in the lung bases. The liver, spleen, and pancreas show no suspicious findings. Gallbladder and biliary tree are also wi thout suspicious finding. Symmetric renal function is seen with no hydronephrosis or suspicious renal mass. No dilated bowel loops or bowel wall thickening. No free air, free fluid or inflammatory stranding. N o hernia, mass or bulky lymphadenopathy. The urinary bladder is without significant finding. No suspicious bony findings. Chronic appearing L2 superior endplate compression deformity with sequel ae of vertebral augmentation. Tortuosity of the abdominal aorta, with mild fusiform aneurysmal dilation most distally, measuring up to 2.3 centimeter in diameter. IMPRESSION: No acute intra-abdominal process. Chronic findings as above.
--- NOTE | 2023-01-17 16:51 | ER ---
Nurse's Notes [facility] Name: Tita Elizabeth Age: 57 yrs Sex: Female : 1965 Arrival Date: 01/17/2023 Time: 13:25 Bed 20 Private MD: Diagnosis: Crohn's flare Presentation: 01/17 13:44 Chief complaint: Patient states: five days ago my body started cramping, yesterday the iw pain settled in my RUQ, saw Dr. roberto yesterday , was put on magnesium for cramps , she's also had diarrhea. Coronavirus screen: At this time, the client does not indicate any symptoms associated with coronavirus-19. Ebola Screen: Patient negative for fever greater than or equal to 101.5 degrees Fahrenheit, and additional compatible Ebola Virus Disease symptoms Patient denies exposure to infectious person. Patient denies travel to an Ebola-affected area in the 21 days before illness onset. No symptoms or risks identified at this time. Initial Sepsis Screen: Does the patient meet any 2 criteria? No. Patient's initial sepsis screen is negative. Does the patient have a suspected source of infection? No. Patient's initial sepsis screen is negative. Risk Assessment: Do you want to hurt yourself or someone else? Patient reports no desire to harm self or others. Onset of symptoms was January 12, 2023. 13:44 Method Of Arrival: Ambulatory iw 13:44 Acuity: JAY 3 iw Historical: - Allergies: 13:45 Sulfa (Sulfonamide Antibiotics); iw - Home Meds: 13:45 atorvastatin Oral 1 tab [Active]; carvedilol 12.5 mg Oral tab 1 tab 2 times per day iw [Active]; losartan Oral [Active]; - PMHx: 13:45 Arthritis; HTN; colitis; Crohn's disease; iw - PSHx: 13:45 hysterectomy; Appendectomy; Tonsillectomy; iw - Immunization history:: Client reports receiving the 2nd dose of the Covid vaccine. - Social history:: Smoking status: Patient reports the use of cigarette tobacco products. Screenin:00 [facility] ED Fall Risk Assessment (Adult) History of falling in the last 3 months, ko1 including since admission No falls in past 3 months (0 pts) Confusion or Disorientation No (0 pts) Intoxicated or Sedated No (0 pts) Impaired Gait No (0 pts) Mobility Assist Device Used No (0 pt) Altered Elimination No (0 pt) Score/Fall Risk Level 0 - 2 = Low Risk Oriented to surroundings, Maintained a safe environment, Educated pt \T\ family on fall prevention, incl call for assistance when getting out of bed, Assessed \T\ reinforced patient's understanding of fall precautions, Provided non-skid footwear, Hourly rounding (assess needs \T\ fall precautionary measures) done, Used ambulatory aids as needed (educated on \T\ assisted with), Used gait belt as appropriate. Abuse screen: Denies threats or abuse. Denies injuries from another. Nutritional screening: No deficits noted. Tuberculosis screening: No symptoms or risk factors identified. Assessment: 14:00 Pain: Complains of pain in abdomen. Neuro: No deficits noted. Cardiovascular: No ko1 deficits noted. Respiratory: No deficits noted. GI: Bowel sounds present X 4 quads. Abdomen is tender to palpation X 4 quads. : No deficits noted. EENT: No deficits noted. Derm: No deficits noted. Musculoskeletal: No deficits noted. 14:00 General: Appears distressed, uncomfortable, Behavior is cooperative, appropriate for ko age. Vital Signs: 13:44 BP 122 / 92; Pulse 66; Resp 16; Temp 97.8; Pulse Ox 98% on R/A; Weight 56.7 kg; Height iw 5 ft. 1 in. ; Pain 6/10; 16:05 BP 160 / 86; Pulse 64; Resp 16; Pulse Ox 99% ; ko1 16:57 BP 148 / 78; Pulse 62; Resp 16; Pulse Ox 98% ; ko1 13:44 Body Mass Index 23.62 (56.70 kg, 154.94 cm) iw 13:44 Pain Scale: Adult iw ED Course: 13:31 Patient arrived in ED. kj1 13:36 Ngozi Ashley MD is Attending Physician. sp3 13:45 Triage completed. iw 13:46 Arm band placed on. iw 13:50 Evie Dallas, DALJIT is Primary Nurse. ko1 14:00 Patient has correct armband on for positive identification. Bed in low position. Call ko1 light in reach. Side rails up X 1. Client placed on continuous cardiac and pulse oximetry monitoring. NIBP monitoring applied. hall monitor on. Door closed. Noise minimized. Lights dimmed. Warm blanket given. 14:00 Inserted saline lock: 20 gauge in left antecubital area, using aseptic technique. Blood ko1 collected. 14:26 CMP Sent. ko1 14:26 Lipase Sent. ko1 15:08 CT Abd/Pelvis - IV Contrast Only In Process Unspecified. EDMS 17:07 No provider procedures requiring assistance completed. IV discontinued, intact, ko1 bleeding controlled, No redness/swelling at site. Pressure dressing applied. Administered Medications: 14:35 Drug: NS 0.9% IV 1000 ml Route: IV; Rate: 1 bolus; Site: left antecubital; ko1 16:30 Follow up: IV Status: Completed infusion; IV Intake: 1000ml ko1 14:35 Drug: Ondansetron IVP 4 mg Route: IVP; Site: left antecubital; ko1 16:58 Follow up: Response: No adverse reaction; Nausea is decreased ko1 14:36 Drug: morphine IVP or IV 4 mg Route: IVP; Infused Over: 4 mins; Site: left antecubital; ko1 16:59 Follow up: Response: No adverse reaction; Pain is decreased ko1 Medication: 14:00 VIS not applicable for this client. ko1 Intake: 16:30 IV: 1000ml; Total: 1000ml. ko1 Outcome: 16:51 Discharge ordered by . sp3 17:07 Discharged to home ambulatory. ko1 17:07 Condition: improved 17:07 Discharge instructions given to patient, Instructed on discharge instructions, follow up and referral plans. medication usage, Demonstrated understanding of instructions, follow-up care, medications, Prescriptions given X 2. 17:09 Patient left the ED. ko1 Signatures: Dispatcher [employer] EDNH Gisele Pan RN RN Yenifer Elias kj1 Ngozi Ashley MD MD sp3 Evie Dallas RN RN ko1 Corrections: (The following items were deleted from the chart) 13:47 13:44 BP 122 / 92; Pulse 66bpm; Resp 16bpm; Pulse Ox 98% RA; Temp 97.8F; iw carol
--- NOTE | 2023-01-17 16:51 | EDPHYS ---
Physician Documentation [facility] Name: Tita Elizabeth Age: 57 yrs Sex: Female : 1965 Arrival Date: 01/17/2023 Time: 13:25 Bed 20 Private MD: ED Physician Ngozi Ashley HPI: 01/17 13:58 This 57 yrs old Female presents to ER via Ambulatory with complaints of Abdominal Pain. sp3 13:58 57-year-old female with history of Crohn's disease, hypertension presents to the ED sp3 with chief complaint lower abdominal cramping and "black diarrhea". Patient is a patient of Dr. Escalante who saw her and gave her some magnesium from the office to treat her cramping. Her symptoms of gotten worse and so she now presents to the ED referred by his office. She denies any vomiting, fever, upper abdominal cramping, or any other symptoms. She is on Humira for her arthritis and her Crohn's disease prescriber Dr. Lal in [place]. On review of systems, she denies headache, fever, URI symptoms, neck pain, back pain, chest pain, shortness of breath, rash, known sick contacts, travel history, or any other symptoms at this time.. Historical: - Allergies: 13:45 Sulfa (Sulfonamide Antibiotics); iw - Home Meds: 13:45 atorvastatin Oral 1 tab [Active]; carvedilol 12.5 mg Oral tab 1 tab 2 times per day iw [Active]; losartan Oral [Active]; - PMHx: 13:45 Arthritis; HTN; colitis; Crohn's disease; iw - PSHx: 13:45 hysterectomy; Appendectomy; Tonsillectomy; iw - Immunization history:: Client reports receiving the 2nd dose of the Covid vaccine. - Social history:: Smoking status: Patient reports the use of cigarette tobacco products. ROS: 13:59 Constitutional: Negative for fever, chills, and weight loss, Eyes: Negative for injury, sp3 pain, redness, and discharge, ENT: Negative for injury, pain, and discharge, Neck: Negative for injury, pain, and swelling, Cardiovascular: Negative for chest pain, palpitations, and edema, Respiratory: Negative for shortness of breath, cough, wheezing, and pleuritic chest pain, Back: Negative for injury and pain, MS/Extremity: Negative for injury and deformity, Skin: Negative for injury, rash, and discoloration, Neuro: Negative for headache, weakness, numbness, tingling, and seizure, Psych: Negative for depression, anxiety, suicide ideation, homicidal ideation, and hallucinations, Allergy/Immunology: Negative for hives, rash, and allergies. 13:59 All other systems are negative. Exam: 13:59 Constitutional: This is a well developed, well nourished patient who is awake, alert, sp3 and in no acute distress. Head/Face: Normocephalic, atraumatic. Eyes: Pupils equal round and reactive to light, extra-ocular motions intact. Lids and lashes normal. Conjunctiva and sclera are non-icteric and not injected. Cornea within normal limits. Periorbital areas with no swelling, redness, or edema. Neck: Trachea midline, no thyromegaly or masses palpated, and no cervical lymphadenopathy. Supple, full range of motion without nuchal rigidity, or vertebral point tenderness. No Meningismus. Chest/axilla: Normal chest wall appearance and motion. Nontender with no deformity. No lesions are appreciated. Cardiovascular: Regular rate and rhythm with a normal S1 and S2. No gallops, murmurs, or rubs. Normal PMI, no JVD. No pulse deficits. Respiratory: Lungs have equal breath sounds bilaterally, clear to auscultation and percussion. No rales, rhonchi or wheezes noted. No increased work of breathing, no retractions or nasal flaring. Back: No spinal tenderness. No costovertebral tenderness. Full range of motion. Skin: Warm, dry with normal turgor. Normal color with no rashes, no lesions, and no evidence of cellulitis. MS/ Extremity: Pulses equal, no cyanosis. Neurovascular intact. Full, normal range of motion. Neuro: Awake and alert, GCS 15, oriented to person, place, time, and situation. Cranial nerves II-XII grossly intact. Motor strength 5/5 in all extremities. Sensory grossly intact. Cerebellar exam normal. Normal gait. Psych: Awake, alert, with orientation to person, place and time. Behavior, mood, and affect are within normal limits. 13:59 Abdomen/GI: Abdomen distended bilateral lower quadrants without rebound or guarding. Bowel sounds are hyperactive.. Vital Signs: 13:44 BP 122 / 92; Pulse 66; Resp 16; Temp 97.8; Pulse Ox 98% on R/A; Weight 56.7 kg; Height iw 5 ft. 1 in. ; Pain 6/10; 16:05 BP 160 / 86; Pulse 64; Resp 16; Pulse Ox 99% ; ko1 16:57 BP 148 / 78; Pulse 62; Resp 16; Pulse Ox 98% ; ko1 13:44 Body Mass Index 23.62 (56.70 kg, 154.94 cm) iw 13:44 Pain Scale: Adult iw MDM: 13:54 Patient medically screened. sp3 14:00 Data reviewed: vital signs, nurses notes, lab test result(s), radiologic studies. ED sp3 course: 57-year-old female with Crohn's disease now with abdominal pain. Differential diagnosis includes Crohn's flare, appendicitis, intestinal ileus or obstruction, gastritis, UTI, pyelonephritis, GI bleed, others. I am not highly suspicious for vascular or DAMAGE CUTTER etiology. We will obtain CT scan of the abdomen and pelvis, laboratory values, and administer morphine and Zofran for symptomatic control. Disposition will be based on patient course and work-up and may include admission versus outpatient management.. 16:50 ED course: CT scan demonstrates no significant abnormality and laboratory values are sp3 within normal limits. We will discharge patient home with diagnosis Crohn's flare on p.o. antibiotics and PCP follow-up.. 01/17 13:54 Order name: CBC with Diff; Complete Time: 15:29 sp3 01/17 13:54 Order name: CMP; Complete Time: 15:29 sp3 01/17 13:54 Order name: Lipase; Complete Time: 15:29 sp3 01/17 13:54 Order name: Test, Urine; Complete Time: 15:29 sp3 01/17 13:54 Order name: Urinalysis w/ reflexes; Complete Time: 15:29 sp3 01/17 13:54 Order name: CT Abd/Pelvis - IV Contrast Only; Complete Time: 16:48 sp3 01/17 13:54 Order name: IV Saline Lock; Complete Time: 14:26 sp3 01/17 13:54 Order name: Labs collected and sent; Complete Time: 14:26 sp3 Administered Medications: 14:35 Drug: NS 0.9% IV 1000 ml Route: IV; Rate: 1 bolus; Site: left antecubital; ko1 16:30 Follow up: IV Status: Completed infusion; IV Intake: 1000ml ko1 14:35 Drug: Ondansetron IVP 4 mg Route: IVP; Site: left antecubital; ko1 16:58 Follow up: Response: No adverse reaction; Nausea is decreased ko1 14:36 Drug: morphine IVP or IV 4 mg Route: IVP; Infused Over: 4 mins; Site: left antecubital; ko1 16:59 Follow up: Response: No adverse reaction; Pain is decreased ko1 Disposition Summary: 01/17/23 16:51 Discharge Ordered Location: Home sp3 Condition: Stable sp3 Diagnosis - Crohn's flare sp3 Followup: sp3 - With: Private Physician - When: Upon discharge from the Emergency Department - Reason: Continuance of care Discharge Instructions: - Discharge Summary Sheet sp3 - Crohn's Disease sp3 Forms: - Medication Reconciliation Form sp3 - Thank You Letter sp3 - Antibiotic Education sp3 - Prescription Opioid Use sp3 Prescriptions: - Cipro 500 mg Oral Tablet - take 1 tablet by ORAL route every 12 hours for 10 days; 20 tablet; Refills: 0, sp3 Product Selection Permitted - Flagyl 500 mg Oral Tablet - take 1 tablet by ORAL route every 6 hours for 10 days; 40 tablet; Refills: 0, sp3 Product Selection Permitted Signatures: Dispatcher [employer] Gisele Win, Ngozi Burden RN, MD MD sp3 Evie Dallas RN RN ko1
[2023-01-17 17:15] VITALS: TEMP 97.8
[2023-01-17 17:18] VITALS: BP 148/78; O2SAT 98
== END 2023-01-17 17:09 | disposition home or self-care (01) ==
LOC: ER 13:25
DX: K50.919 Crohn's disease, unspecified, with unspecified complications (principal); I10 Essential (primary) hypertension; Z88.2 Allergy status to sulfonamides
CPT/HCPCS: 85025; 36415; 81025; 81003; 83690; 80053; 74177; Q9967; J2405; J7030

== ENCOUNTER 2023-01-22 11:58 | Emergency (ER) | payer OTHER ==
--- OUTSIDE RECORDS SUMMARY | 2023-01-22 12:20 | XMS REPORT | Continuity of Care Document ---
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 [address] Medical Branch MIRTAZAPINE 2-0 Yes 15mg Take 15 mg [facility] ORAL 4-05 by mouth. ity of 10:06: [place] [address] Medical Branch famotidine 2-0 Yes 20mg Take 20 mg U nivers 20 mg 4-05 by mouth 2 ity of tablet 10:06: (two) [place] [address] times Medical daily. Branch atorvastati 2-0 Yes 20mg Take 20 mg Univers n 20 mg 4-05 by mouth ity of tablet 10:06: at [place] [address] bedtime. Medical Branch meloxicam 2-0 Yes 15mg Take 15 mg Un alexi 15 mg 4-05 by mouth ity of tablet 10:06: daily. [place] [address] Medical Branch famotidine 2-0 Yes 20mg Take 20 mg U nivers 20 mg 4-05 by mouth 2 ity of tablet 10:06: (two) [place] [address] times Medical daily. Branch losartan 50 2-0 Yes 50mg Take 50 mg Univers mg tablet 4-05 by mouth ity of 09:52: daily. [place] [address] Medical Branch losartan 50 2-0 Yes 50mg Take 50 mg Univers mg tablet 4-05 by mouth ity of 09:52: daily. [address] losartan 50 2-0 Yes 50mg Take 50 mg Univers mg tablet 4-05 by mouth ity of 09:52: daily. [address] estradioL 2021-0 Yes [id number] 1g Insert 1 g Univers 0.01 % (0.1 4-05 into ity of mg/gram) 00:00: vagina [place] vaginal weekly. [facility] estradioL 2021-0 Yes [id number] 1g Insert 1 g Univers 0.01 % (0.1 4-05 into ity of mg/gram) 00:00: vagina [place] vaginal weekly. [facility] estradioL 2021-0 Yes [id number] 1g Insert 1 g Univers 0.01 % (0.1 4-05 into ity of mg/gram) 00:00: vagina [facility] weekly. [facility] estradioL 2021-0 Yes [id number] 1g Insert 1 g Univers 0.01 % (0.1 4-05 into ity of mg/gram) 00:00: vagina [facility] weekly. [facility] estradioL 2021-0 Yes [id number] 1g Insert 1 g Univers 0.01 % (0.1 4-05 into ity of mg/gram) 00:00: vagina [facility] weekly. [facility] estradioL 2021-0 Yes [id number] 1g Insert 1 g Univers 0.01 % (0.1 4-05 into ity of mg/gram) 00:00: vagina [facility] weekly. [facility] estradioL 2021-0 Yes [id number] 1g Insert 1 g Univers 0.01 % (0.1 4-05 into ity of mg/gram) 00:00: vagina [facility] weekly. [facility] tiZANidine 2021-0 Yes Univers 4 mg tablet 4-04 ity of 00:00: 00 [facility] tiZANidine 2021-0 Yes Univers 4 mg tablet 4-04 ity of 00:00: [facility] tiZANidine 2021-0 Yes Univers 4 mg tablet 4-04 ity of 00:00: [facility] tiZANidine 2021-0 Yes Univers 4 mg tablet 4-04 ity of 00:00: [facility] tiZANidine 2021-0 Yes Univers 4 mg tablet 4-04 ity of 00:00: Medical Branch tiZANidine 2021-0 Yes Univers 4 mg tablet -04 ity of 00:00: [place] 00 Medical Branch tiZANidine 2021-0 Yes Univers 4 mg tablet -04 ity of 00:00: [place] 00 Medical Branch mirtazapine 2021-0 2021- No 15mg Take 15 mg [facility] 15 mg 11-26 by mouth ity of tablet 00:00: 00:00 at [place] 00 :00 bedtime. Medical Branch eszopiclone 2021-0 Yes 3mg Take 3 mg U nivers 3 mg tablet 3-28 by mouth ity of 00:00: at [place] [address] bedtime. Medical Branch eszopiclone 2021-0 Yes 3mg Take 3 mg U nivers 3 mg tablet 3-28 by mouth ity of 00:00: at [place] [address] bedtime. Medical Branch eszopiclone 2021-0 Yes 3mg Take 3 mg U nivers 3 mg tablet 3-28 by mouth ity of 00:00: at [place] [address] bedtime. Medical Branch methocarbam 2021-0 Yes 500mg Take 500 U nivers oL 500 mg 3-10 mg by ity of tablet 00:00: mouth 2 (two) Medical times Branch daily. HYDROcodone 2021-0 Yes 1{tbl} Take 1 Un alexi -acetaminop 3-10 tablet by ity of hen 5-325 00:00: mouth 3 [place] mg tablet 00 (three) Medical times Branch daily. methocarbam 2021-0 Yes 500mg Take 500 U nivers oL 500 mg 3-10 mg by ity of tablet 00:00: mouth 2 (two) Medical times Branch daily. HYDROcodone 2021-0 Yes 1{tbl} Take 1 Un alexi -acetaminop 3-10 tablet by ity of hen 5-325 00:00: mouth 3 [place] mg tablet 00 (three) Medical times Branch daily. methocarbam 2022-0 Yes 500mg Take 500 U nivers oL 500 mg 3-10 mg by ity of tablet 00:00: mouth 2 (two) Medical times Branch daily. HYDROcodone 2-0 [...] ity o f tablet 00:00: mouth in [place] 00 the Medical morning Branch and 1 tablet in the evening. methocarbam 2022-0 Yes 500mg Take 1 Uni vers oL 500 mg 3-10 tablet by ity o f tablet 00:00: mouth in [place] 00 the Medical morning Branch and 1 tablet in the evening. methocarbam 2022-0 Yes 500mg Take 1 Uni vers oL 500 mg 3-10 tablet by ity o f tablet 00:00: mouth in [place] 00 the Medical morning Branch and 1 [...] TABLET BY ity of tablet 00:00: MOUTH [place] 00 EVERY DAY Medical FOR 14 Branch DAYS buPROPion Yes 150mg Take 150 Uni vers SR 150 mg 1-11 mg by ity of SR tablet 00:00: mouth (two) Medical times Branch daily. buPROPion 0 Yes 150mg Take 150 Uni vers SR 150 mg 1-11 mg by ity of SR tablet 00:00: mouth (two) Medical times Branch daily. buPROPion 0 Yes 150mg Take 150 Uni vers SR 150 mg 1-11 mg by ity of SR tablet 00:00: mouth (two) Medical times Branch daily. buPROPion 0 Yes 150mg Take 150 Uni vers SR 150 mg 1-11 mg by ity of SR tablet 00:00: mouth (two) Medical times Branch daily. buPROPion 0 Yes 150mg Take 1 Unive [...] tablet in the evening. oxybutynin 2019-08 Yes [id number] 10mg Take 1 Univers 10 mg 24 hr 1-05 tablet by ity of tablet 00:00: mouth [place] 00 daily. [facility] oxybutynin 2019-08 Yes [id number] 10mg Take 1 Univers 10 mg 24 hr 1-05 tablet by ity of tablet 00:00: mouth [place] 00 daily. [facility] oxybutynin 2019-08 Yes [id number] 10mg Take 1 Univers 10 mg 24 hr 1-05 tablet by ity of tablet 00:00: mouth [place] 00 daily. [facility] oxybutynin 2019-08 Yes [id number] 10mg Take 1 Univers 10 mg 24 hr 1-05 tablet by ity of tablet 00:00: mouth [place] 00 daily. [facility] oxybutynin 2019-08 Yes [id number] 10mg Take 1 Univers 10 mg 24 hr 1-05 tablet by ity of tablet 00:00: mouth [place] 00 daily. [facility] oxybutynin 2019-08 Yes [id number] 10mg Take 1 Univers 10 mg 24 hr 1-05 tablet by ity of tablet 00:00: mouth [place] 00 daily. [facility] Branch oxybutynin 2019-08 Yes [id number] 10mg Take 1 Univers 10 mg 24 hr 1-05 tablet by ity of tablet 00:00: mouth [place] 00 daily. [facility] methylPREDN 2019-08- No [id number] Take by Univers ISolone 1-05 04-05 mouth ity of (MEDROL, 00:00: 00:00 [place]NY[place] 4 mg 00 :00 CTIONS. Medica l tablets follow Branch package directions naproxen 2019-08- No [id number] 550mg Take 1 Univers sodium 1-05 04-05 tablet by ity of (ANAPROX 00:00: 00:00 mouth 2 [place] DS) 550 mg 00 :00 (two) Medical tablet times Branch daily with meals. acetaminoph 2021- No [id number] 1{tbl} Take 1 U nivers en-codeine 7-21 04-05 tablet by ity of (TYLENOL-CO 00:00: 00:[place] DEINE #3) 00 :00 every 4 Medical 300-30 mg (four) Branch tablet hours as needed for Pain (scale 7-10). Indication s: acute pain cyclobenzap 2018-08- No [id number] 5mg Take 1 Univers rine 5 mg [...] H arris rine 4-15 left-sided tablet by [facility] (FLEXERIL) 00:00: low back mouth 2 [...] arris rine 4-15 left-sided tablet by [facility] (FLEXERIL) 00:00: low back mouth 2 10 [...] H arris rine 4-15 left-sided tablet by [facility] (FLEXERIL) 00:00: low back mouth 2 [...] H arris rine 4-15 left-sided tablet by [facility] (FLEXERIL) 00:00: low back mouth 2 10 mg 00 pain with times tablet sciatica, daily as sciatica needed for laterality Muscle unspecified Spasms. gabapentin Yes Chronic 300mg Take 1 H arris (NEURONTIN) 4-15 left-sided capsule by [facility] 300 mg 00:00: low back mouth 2 capsule 00 pain with times sciatica, daily as sciatica needed for laterality Pain. unspecified cyclobenzap Yes Chronic 10mg Take 1 H arris rine 4-15 left-sided tablet by [facility] (FLEXERIL) 00:00: low back mouth 2 10 mg 00 pain with times tablet sciatica, daily as sciatica needed for laterality Muscle unspecified Spasms. gabapentin Yes Chronic 300mg Take 1 H arris (NEURONTIN) 4-15 left-sided capsule by [facility] 300 mg 00:00: low back mouth 2 capsule 00 pain with times sciatica, daily as sciatica needed for laterality Pain. unspecified cyclobenzap Yes Chronic 10mg Take 1 H arris rine 4-15 left-sided tablet by [facility] (FLEXERIL) 00:00: low back mouth 2 10 mg 00 pain with times tablet sciatica, daily as sciatica needed for laterality Muscle unspecified Spasms. gabapentin Yes Chronic 300mg Take 1 H arris (NEURONTIN) 4-15 left-sided capsule by [facility] 300 mg 00:00: low back mouth 2 capsule 00 pain with times sciatica, daily as sciatica needed for laterality Pain. unspecified cyclobenzap Yes Chronic 10mg Take 1 H arris rine 4-15 left-sided tablet by [facility] (FLEXERIL) 00:00: low back mouth 2 [...] arris rine 4-15 left-sided tablet by [facility]al (FLEXERIL) 00:00: low back mouth 2 10 [...] H arris rine 4-15 left-sided tablet by [facility] (FLEXERIL) 00:00: low back mouth 2 [...] Hosp tasha 50 l metoprolol Yes 25mg Q.[id number] Take 25 mg [facility] tartrate 6-[id number] mouth [address] (LOPRESSOR) 18:26: 3D [...] tasha 50 l metoprolol 2018-0 Yes 25mg Q.[id number] Take 25 mg [facility] tartrate 6-19 [id number] [address] mouth [address] (LOPRESSOR) 18:26: 3D [...] tasha 50 l metoprolol 2018-0 Yes 25mg Q.[id number] Take 25 mg [facility] tartrate 6-[address] [id number] [address] mouth [address] (LOPRESSOR) 18:26: 3D [...] tasha 50 l metoprolol 2018-0 Yes 25mg Q.[id number] Take 25 mg [facility] tartrate 6-[address] [id number] mouth [address] (LOPRESSOR) 18:26: 3D [...] tasha 50 l metoprolol 2018-0 Yes 25mg Q.[id number] Take 25 mg [facility] tartrate 6-[id number] mouth [address] (LOPRESSOR) 18:26: 3D [...] tasha 50 l metoprolol 2018-0 Yes 25mg Q.[id number] Take 25 mg [facility] tartrate 6-[address] [id number] [address] mouth [address] (LOPRESSOR) 18:26: 3D (three) Hos viral 25 mg 50 times a l tablet day. Note: Rx label states BID but pt takes TID. cyanocobala 2018-0 Yes 1{tbl} QD Take 1 Me thodi min, 6-[address] vitamin 18:26: mouth [facility] B-12, 50 daily. l (VITAMIN B-12 ORAL) No Notes: [facility]oria 9-23 (Same as: l 14:26: Ativan) No Notes: [facility] 9-23 (Same as: l 14:26: Ativan) No Notes: [facility] 9-23 (Same as: l 14:26: Ativan) No Notes: [facility] 9-23 (Same as: l 14:26: Ativan) No Notes: [facility] 9-23 (Same as: l 14:26: Ativan) No Notes: [facility] 9-23 (Same as: l 14:26: Ativan) No Notes: [facility] 9-23 (Same as: l 14:26: Ativan) No Notes: [facility] 9-23 (Same as: l 14:26: Ativan) No Notes: [facility] 9-23 (Same as: l 14:26: Ativan) No Notes: [facility] 9-23 (Same as: l 14:26: Ativan) No Notes: [facility] 9-23 (Same as: l 14:26: Ativan) No Notes: [facility] 9-23 (Same as: l 14:26: Ativan) No Notes: [facility] 9-23 (Same as: l [...] oria 9-23 PO, Daily, l 12:18: 0 [place] 00 Refill(s) rOPINIRole Yes 1 mg = 1 Mem oria 1 mg oral 9-23 tab, PO, l tablet 12:18: Daily, 0 [place] 00 Refill(s) Klor-Con 10 Yes 10 mEq, Mem oria 9-23 PO, Daily, l 12:18: 0 [place] 00 Refill(s) rOPINIRole Yes 1 mg = 1 Mem oria 1 mg oral 9-23 tab, PO, l tablet 12:18: Daily, 0 [place] 00 Refill(s) Klor-Con 10 Yes 10 mEq, Mem oria 9-23 PO, Daily, l 12:18: 0 [place] 00 Refill(s) rOPINIRole Yes 1 mg = 1 Mem oria 1 mg oral 9-23 tab, PO, l tablet 12:18: Daily, 0 [place] 00 Refill(s) Klor-Con 10 Yes 10 mEq, [...] tab, PO, l tablet 12:18: Daily, 0 [place] 00 Refill(s) Klor-Con 10 Yes 10 mEq, Mem oria 9-23 PO, Daily, l 12:18: 0 [place] 00 Refill(s) rOPINIRole Yes 1 mg = 1 Mem oria 1 mg oral 9-23 tab, PO, l tablet 12:18: Daily, 0 [place] 00 Refill(s) Klor-Con 10 Yes 10 mEq, Mem oria 9-23 PO, Daily, l 12:18: 0 [place] 00 Refill(s) rOPINIRole 0 Yes 1 mg = 1 Mem oria 1 mg oral 9-23 tab, PO, l tablet 12:18: Daily, 0 [place] 00 Refill(s) Klor-Con 10 0 Yes 10 mEq, Mem oria 9-23 PO, Daily, l 12:18: 0 [place] 00 Refill(s) rOPINIRole Yes 1 mg = 1 Mem oria 1 mg oral 9-23 tab, PO, l tablet 12:18: Daily, 0 [place] 00 Refill(s) Klor-Con 10 Yes 10 mEq, Mem oria 9-23 PO, Daily, l 12:18: 0 [place] 00 Refill(s) rOPINIRole Yes 1 mg = 1 Mem oria 1 mg oral 9-23 tab, PO, l tablet 12:18: Daily, 0 [place] 00 Refill(s) Klor-Con 10 Yes 10 mEq, Mem oria 9-23 PO, Daily, l 12:18: 0 [place] 00 Refill(s) rOPINIRole Yes 1 mg = 1 Mem oria 1 mg oral 9-23 tab, PO, l tablet 12:18: Daily, 0 [place] 00 Refill(s) Klor-Con 10 Yes 10 mEq, Mem oria 9-23 PO, Daily, l 12:18: 0 [place] 00 Refill(s) rOPINIRole 0 Yes 1 mg = 1 Mem oria 1 mg oral 9-23 tab, PO, l tablet 12:18: Daily, 0 [place] 00 Refill(s) Klor-Con 10 Yes 10 mEq, Mem oria 9-23 PO, Daily, l 12:18: 0 [place] 00 Refill(s) rOPINIRole 0 Yes 1 mg = 1 Mem oria 1 mg oral 9-23 tab, PO, l tablet 12:18: Daily, 0 [place] 00 Refill(s) Klor-Con 10 0 Yes 10 mEq, Mem oria 9-23 PO, Daily, l 12:18: 0 [place] 00 Refill(s) rOPINIRole Yes 1 mg = 1 Mem oria 1 mg oral 9-23 tab, PO, l tablet 12:18: Daily, 0 [place] 00 Refill(s) Klor-Con 10 2013- Yes 10 mEq, Mem oria 9-23 PO, Daily, l 12:18: 0 [place] 00 Refill(s) Hydrochloro 2013-0 Yes 1 tab, [...] MG / 03:00: 30 tab, 0 [place] g[place] Losartan 00 Refill(s) Potassium 50 MG Oral [...] Mau agata -22 Daily l 14:48: aspirin 0 Yes 81 mg, PO, [place] - Daily l 14:48: aspirin Yes 81 mg, PO, [place] - Daily l 14:48: aripiprazol Yes 15 mg [...] PO, Memoria 05-19 Bedtime l 14:47: aripiprazol 0 Yes 15 mg = 1 M emoria e 15 MG - tab, PO, l Oral Tablet 14:47: Daily [place] nn [Abilify] 00 Clonidine Yes PO, Memoria 05-19 Bedtime l 14:47: aripiprazol 2014-0 Yes 15 mg = 1 M emoria e 15 MG -22 tab, PO, l Oral Tablet 14:47: Daily [place] [Abilif] Clonidine 2013-0 Yes PO, Memoria 05-19 Bedtime l 14:47: [...] Tablet 14:47: Daily [place] [Abilify] Clonidine 2013-0 Yes PO, Memoria 05-19 Bedtime l 14:47: aripiprazol Yes 15 mg = 1 M emoria e 15 MG -22 tab, PO, l Oral Tablet 14:47: Daily [place] [Abilify] 00 Clonidine 2014-0 Yes PO, Memoria 9-22 Bedtime l 14:47: Ibuprofen 2014-0 Yes 800 mg, Memor ia 9-22 PO, BID l 14:46: Ibuprofen 2014-0 Yes 800 mg, Memor ia 9-22 PO, BID l 14:46: Ibuprofen 2014-0 Yes 800 mg, Memor ia 9-22 PO, BID l 14:46: Ibuprofen 2014-0 Yes 800 mg, Memor ia 9-22 PO, BID l 14:46: Ibuprofen 2014-0 Yes 800 mg, Memor ia 9-22 PO, BID l 14:46: Ibuprofen 2014-0 Yes 800 mg, Memor ia 9-22 PO, BID l 14:46: Ibuprofen 2014-0 Yes 800 mg, Memor ia 9-22 PO, BID l 14:46: Ibuprofen 2014-0 Yes 800 mg, Memor ia 9-22 PO, BID l 14:46: Ibuprofen 2014-0 Yes 800 mg, Memor ia 9-22 PO, BID l 14:46: Ibuprofen 2014-0 Yes 800 mg, Memor ia 9-22 PO, BID l 14:46: Ibuprofen 2014-0 Yes 800 mg, Memor ia 9-22 PO, BID l 14:46: Ibuprofen 2014-0 Yes 800 mg, Memor ia 9-22 PO, BID l 14:46: Ibuprofen 2014-0 Yes 800 mg, Memor ia 9-22 PO, BID l 14:46: Ibuprofen 2014-0 Yes 800 mg, Memor ia 9-22 PO, BID l 14:46: Miralax 2013-0 No Notes: [facility] 5-09 Dissolve l 14:00: in 8 oz of [place] 00 water or juice. (Same as: Miralax) Miralax 0 No Notes: [facility]oria 5-09 Dissolve l 14:00: in 8 oz of [place] 00 water or juice. (Same as: Miralax) Miralax 2013-0 No Notes: [facility]oria 5-09 Dissolve l 14:00: in 8 oz of [place] 00 water or juice. (Same as: Miralax) Miralax 2014-0 No Notes: [facility]oria 5-09 Dissolve l 14:00: in 8 oz of [place] 00 water or juice. (Same as: Miralax) Miralax No Notes: [facility]oria 5-09 Dissolve l 14:00: in 8 oz of [place] 00 water or juice. (Same as: Miralax) Miralax No Notes: [facility]oria 5-09 Dissolve l 14:00: in 8 oz of [place] 00 water or juice. (Same as: Miralax) Miralax No Notes: [facility]oria 5-09 Dissolve l 14:00: in 8 oz of [place] 00 water or juice. (Same as: Miralax) Miralax No Notes: [facility]oria 5-09 Dissolve l 14:00: in 8 oz of [place] 00 water or juice. (Same as: Miralax) Miralax No Notes: [facility] 5-09 Dissolve l 14:00: in 8 oz of [place] 00 water or juice. (Same as: Miralax) Miralax No Notes: [facility]oria 5-09 Dissolve l 14:00: in 8 oz of [place] 00 water or juice. (Same as: Miralax) Miralax No Notes: [facility]oria 5-09 Dissolve l 14:00: in 8 oz of [place] 00 water or juice. (Same as: Miralax) Miralax No Notes: [facility]oria 5-09 Dissolve l 14:00: in 8 oz of [place] 00 water or juice. (Same as: Miralax) Miralax No Notes: [facility]oria 5-09 Dissolve l 14:00: in 8 oz of [place] 00 water or juice. (Same as: Miralax) Miralax No Notes: [facility]oria 5-09 Dissolve l 14:00: in 8 oz of [place] 00 water or juice. (Same as: Miralax) Dulcolax No Notes: [facility] Laxative 5-08 (Same As: l 15:24: Dulcolax, [place] 00 Bisco-Lax) Dulcolax No Notes: [facility] Laxative 5-08 (Same As: l 15:24: Dulcolax, [place] 00 Bisco-Lax) Dulcolax No Notes: [facility] Laxative 5-08 (Same As: l 15:24: Dulcolax, [place] 00 Bisco-Lax) Dulcolax No Notes: [facility] Laxative 5-08 (Same As: l 15:24: Dulcolax, [place] 00 Bisco-Lax) Dulcolax No Notes: [facility] Laxative 5-08 (Same As: l 15:24: Dulcolax, [place] 00 Bisco-Lax) Dulcolax No Notes: [facility] Laxative 5-08 (Same As: l 15:24: Dulcolax, [place] 00 Bisco-Lax) Dulcolax No Notes: [facility] Laxative 5-08 (Same As: l 15:24: Dulcolax, [place] 00 Bisco-Lax) Dulcolax No Notes: [facility] Laxative 5-08 (Same As: l 15:24: Dulcolax, [place] 00 Bisco-Lax) Dulcolax No Notes: [facility] Laxative 5-08 (Same As: l 15:24: Dulcolax, [place] 00 Bisco-Lax) Dulcolax No Notes: [facility] Laxative 5-08 (Same As: l 15:24: Dulcolax, [place] 00 Bisco-Lax) Dulcolax No Notes: [facility] Laxative 5-08 (Same As: l 15:24: Dulcolax, [place] 00 Bisco-Lax) Dulcolax No Notes: [facility] Laxative 5-08 (Same As: l 15:24: Dulcolax, [place] 00 Bisco-Lax) Dulcolax No Notes: [facility] Laxative [...] 5-07 Route: PO, l 14:00: Drug form: [place] 00 ERCAP, Daily, Dosing Weight 71.818, kg, Start date: 01/01/14 9:00:00, Duration: 30 day, Stop date: 01/30/14 9:00:00 Budesonide No Notes: Memor ia 5-07 (Same As: l 14:00: Entocort [place] 00 EC or Budesonide 3 mg EC / ERC) "Do Not Crush" Sertraline No Notes: Memor ia 5-07 (Same as: l 14:00: Zoloft) [place] 00 Methocarbam No Notes: Mau ag[place] ol 5-07 (Same l 14:00: as:Robaxin ) aripiprazol No Notes: [place] ag[place] e 5-07 Non-Formul l 14:00: [facility]. (Same as: ) Entocort EC No 9 mg, Memor ia 5-07 Route: PO, l 14:00: Drug form: [place] 00 ERCAP, Daily, Dosing Weight 71.818, kg, [...] e 5-07 Non-Formul l 14:00: [facility]. [place] 00 (Same as: ) Entocort EC No 9 mg, Memor ia 5-07 Route: PO, l 14:00: Drug form: [place] 00 ERCAP, Daily, Dosing Weight 71.818, kg, [...] e 5-07 Non-Formul l 14:00: [facility]. [place] 00 (Same as: ) Entocort EC No [...] ia 5-07 (Same as: l 14:00: Zoloft) [place] 00 Methocarbam No Notes: Mau ag[place] ol 5-07 (Same l 14:00: as:Robaxin ) aripiprazol No Notes: [place] ag[place] e 5-07 Non-Formul l 14:00: [facility]. [place] 00 (Same as: ) Entocort EC No 9 mg, Memor ia 5-07 Route: PO, l 14:00: Drug form: [place] 00 ERCAP, Daily, Dosing Weight 71.818, kg, Start date: 01/01/14 9:00:00, Duration: 30 day, Stop date: 01/30/14 9:00:00 Budesonide No Notes: Memor ia 5-07 (Same As: l 14:00: Entocort [place] 00 EC or Budesonide 3 mg EC / ERC) "Do Not Crush" Sertraline No Notes: Memor ia 5-07 (Same as: l 14:00: Zoloft) [place] Methocarbam No Notes: Mau ag[place] ol 5-07 (Same l 14:00: as:Robaxin ) aripiprazol No Notes: Mau ag[place] e 5-07 Non-Formul l 14:00: [facility]. (Same as: [place]) Entocort EC No 9 mg, Memor ia 5-07 Route: PO, l 14:00: Drug form: [place] 00 ERCAP, Daily, Dosing Weight 71.818, kg, Start date: 01/01/14 9:00:00, Duration: 30 day, Stop date: 01/30/14 9:00:00 Budesonide No Notes: Memor ia 5-07 (Same As: l 14:00: Entocort [place] 00 EC or Budesonide 3 mg EC / ERC) "Do Not Crush" Sertraline No Notes: Memor ia 5-07 (Same as: l 14:00: Zoloft) [place] Methocarbam No Notes: Mau ag[place] ol 5-07 (Same l 14:00: as:Robaxin ) aripiprazol No Notes: Mau ag[place] e 5-07 Non-Formul l 14:00: [facility]. [place] 00 (Same as: irta) Entocort EC No 9 mg, Memor ia [...] ia 5-07 (Same as: l 14:00: Zoloft) [place] 00 Methocarbam No Notes: Mau agata ol 5-07 (Same l 14:00: as:Robaxin [place] ) aripiprazol No Notes: Mau ag[place] e 5-07 Non-Formul l 14:00: [facility]. [place] (Same as: Juvenal) Entocort EC No 9 mg, Memor ia 5-07 Route: PO, l 14:00: Drug form: [place] 00 ERCAP, Daily, Dosing Weight 71.818, kg, Start date: 01/01/14 9:00:00, Duration: 30 day, Stop date: 01/30/14 9:00:00 Budesonide No Notes: Memor ia 5-07 (Same As: l 14:00: Entocort [place] 00 EC or Budesonide 3 mg EC / ERC) "Do Not Crush" Sertraline No Notes: Memor ia 5-07 (Same as: l 14:00: Zoloft) [place] Methocarbam No Notes: Mau agata ol 5-07 (Same l 14:00: as:Robaxin [place] ) aripiprazol No Notes: Mau agata e 5-07 Non-Formul l 14:00: [facility]. [place] (Same as: rita) Entocort EC No 9 mg, Memor ia 5-07 Route: PO, l 14:00: Drug form: [place] 00 ERCAP, Daily, Dosing Weight 71.818, kg, Start date: 01/01/14 9:00:00, Duration: 30 day, Stop date: 01/30/14 9:00:00 Budesonide 0 No Notes: Memor ia 5-07 (Same As: l 14:00: Entocort [place] 00 EC or Budesonide 3 mg EC / ERC) "Do Not Crush" Sertraline No Notes: Memor ia 5-07 (Same as: l 14:00: Zoloft) [place] 00 Methocarbam No Notes: Mau ag[place] ol 5-07 (Same l 14:00: as:Robaxin [place] 00 ) aripiprazol No Notes: Mau agata e 5-07 Non-Formul l 14:00: [facility]. [place] (Same as: ) Entocort EC No 9 mg, Memor ia 5-07 Route: PO, l 14:00: Drug form: [place] 00 ERCAP, Daily, Dosing Weight 71.818, kg, Start date: 01/01/14 9:00:00, Duration: 30 day, Stop date: 01/30/14 9:00:00 Budesonide No Notes: Memor ia 5-07 (Same As: l 14:00: Entocort [place] 00 EC or Budesonide 3 mg EC [...] 5-07 Route: PO, l 14:00: Drug form: [place] 00 ERCAP, Daily, Dosing Weight 71.818, kg, [...] 5-07 Route: PO, l 14:00: Drug form: [place] 00 ERCAP, Daily, Dosing Weight 71.818, kg, Start date: 01/01/14 9:00:00, Duration: 30 day, Stop date: 01/30/14 9:00:00 Budesonide No Notes: Memor ia 5-07 (Same As: l 14:00: Entocort [place] 00 EC or Budesonide 3 mg EC [...] ia 5-07 (Same as: l 14:00: Zoloft) [place] Methocarbam No Notes: Mau agata ol 5-07 (Same l 14:00: as:Robaxin [place] 00 ) aripiprazol No Notes: Mau agata e 01-01 Non-Formul l 14:00: [facility]. [place] 00 (Same as: Kaylee) Entocort EC No 9 mg, Memor ia 01-01 Route: PO, l 14:00: Drug form: [place] 00 ERCAP, Daily, Dosing Weight 71.818, kg, Start date: 01/01/14 9:00:00, Duration: 30 day, Stop date: 01/30/14 9:00:00 Budesonide No Notes: Memor ia 01-01 (Same As: l 14:00: Entocort EC or Budesonide 3 mg EC / ERC) "Do Not Crush" Protonix No Notes: Memoria 5-07 Tablet l 12:30: should not [place] 00 be chewed or crushed. (Same as: Protonix) Protonix No Notes: Memoria 5-07 Tablet l 12:30: should not [place] 00 be chewed or crushed. (Same as: Protonix) Protonix No Notes: Memoria 5-07 Tablet l 12:30: should not [place] 00 be chewed or crushed. (Same as: Protonix) Protonix No Notes: Memoria 5-07 Tablet l 12:30: should not [place] 00 be chewed or crushed. (Same as: Protonix) Protonix No Notes: Memoria 5-07 Tablet l 12:30: should not [place] 00 be chewed or crushed. (Same as: Protonix) Protonix No Notes: Memoria 5-07 Tablet l 12:30: should not [place] 00 be chewed or crushed. (Same as: Protonix) Protonix No Notes: Memoria 5-07 Tablet l 12:30: should not [place] 00 be chewed or crushed. (Same as: Protonix) Protonix No Notes: Memoria 5-07 Tablet l 12:30: should not [place] 00 be chewed or crushed. (Same as: Protonix) Protonix No Notes: Memoria 5-07 Tablet l 12:30: should not [place] 00 be chewed or crushed. (Same as: Protonix) Protonix No Notes: Memoria 5-07 Tablet l 12:30: should not [place] 00 be chewed or crushed. (Same as: Protonix) Protonix No Notes: Memoria 5-07 Tablet l 12:30: should not [place] 00 be chewed or crushed. (Same as: Protonix) Protonix No Notes: Memoria 5-07 Tablet l 12:30: should not [place] 00 be chewed or crushed. (Same as: Protonix) Protonix No Notes: Memoria 5-07 Tablet l 12:30: should not [place] 00 be chewed or crushed. (Same as: Protonix) Protonix No Notes: Memoria 5-07 Tablet l 12:30: should not [place] 00 be chewed or crushed. (Same as: Protonix) Dicyclomine No Notes: Mau agata 5-07 (Same as: l 04:30: Bentyl) [place] Dicyclomine No Notes: Mau agata 5-07 (Same as: l 04:30: Bentyl) [place] Dicyclomine No Notes: Mau agata 5-07 (Same as: l 04:30: Bentyl) [place] Dicyclomine No Notes: Mau agata 5-07 (Same as: l 04:30: Bentyl) [place] Dicyclomine No Notes: Mau agata 5-07 (Same as: l 04:30: Bentyl) [place] Dicyclomine No Notes: Mau agata 5-07 (Same as: l 04:30: Bentyl) [place] Dicyclomine No Notes: Mau agata 5-07 (Same as: l 04:30: Bentyl) [place] Dicyclomine No Notes: Mau agata 5-07 (Same as: l 04:30: Bentyl) [place] Dicyclomine No Notes: Mau agata 5-07 (Same as: l 04:30: Bentyl) [place] Dicyclomine No Notes: Mau agata 5-07 (Same as: l 04:30: Bentyl) [place] Dicyclomine No Notes: Mau agata 5-07 (Same as: l 04:30: Bentyl) [place] 00 Dicyclomine No Notes: Mau agata 5-07 [...] Memoria 5-07 (Same as: l 02:00: Zocor) [place] 00 Ditropan XL No Notes: Mau agata 5-07 (Same as: l 02:00: Ditropan [place] XL) "Do Not Crush" Pamelor No Notes: Memoria 5-07 (Same l 02:00: as:Pamelor [place] 00 , Aventyl) metoprolol No Notes: Memor ia tartrate 5-07 (Same as: l 02:00: Lopressor) Trazodone No Notes: Memori a Hydrochlori 5-07 (Same As: l de 100 MG 02:00: Desyrel) Herm booker Oral Tablet 00 Zocor No Notes: Memoria 5-07 (Same as: l 02:00: Zocor) [place] Ditropan XL No Notes: Mau agata 5-07 [...] Memoria 5-07 (Same as: l 02:00: Zocor) [place] Ditropan XL No Notes: Mau agata 5-07 (Same as: l 02:00: Ditropan [place] 00 XL) "Do Not Crush" [place] No Notes: Memoria 5-07 (Same l 02:00: as:Pamelor [place] 00 , Aventyl) metoprolol No Notes: Memor ia tartrate 5-07 (Same as: l 02:00: Lopressor) [place] Trazodone No Notes: Memori a Hydrochlori 5-07 (Same As: l de 100 MG 02:00: Desyrel) Herm booker Oral Tablet Zocor No Notes: Memoria 5-07 (Same as: l 02:00: Zocor) [place] Ditropan XL No Notes: Mau agata 5-07 (Same as: l 02:00: Ditropan [place] 00 XL) "Do Not Crush" [place] No Notes: Memoria 5-07 (Same l 02:00: as:Pamelor [place] 00 , Aventyl) metoprolol No Notes: Memor ia tartrate 5-07 (Same as: l 02:00: Lopressor) [place] Trazodone No Notes: Memori a Hydrochlori 5-07 (Same As: l de 100 MG 02:00: Desyrel) Herm booker Oral Tablet 00 Zocor No Notes: Memoria 5-07 (Same as: l 02:00: Zocor) [place] Ditropan XL No Notes: Mau agata 5-07 (Same as: l 02:00: Ditropan [place] 00 XL) "Do Not Crush" [place]amelor No Notes: Memoria 5-07 (Same l 02:00: as:Pamelor [place] 00 , Aventyl) metoprolol No Notes: Memor ia tartrate 5-07 (Same as: l 02:00: Lopressor) [place] Trazodone No Notes: Memori a Hydrochlori 5-07 (Same As: l de 100 MG 02:00: Desyrel) Herm booker Oral Tablet 00 Zocor No Notes: Memoria 5-07 (Same as: l 02:00: Zocor) [place] Ditropan XL No Notes: Mau agata 5-07 (Same as: l 02:00: Ditropan [place] XL) "Do Not Crush" [place] No Notes: Memoria 5-07 (Same l 02:00: as:Pamelor [place] 00 , Aventyl) metoprolol No Notes: Memor ia tartrate 5-07 (Same as: l 02:00: Lopressor) [place] Trazodone No Notes: Memori a Hydrochlori 5-07 (Same As: l de 100 MG 02:00: Desyrel) Herm booker Oral Tablet 00 Zocor No Notes: Memoria 5-07 (Same as: l 02:00: Zocor) [place] Ditropan XL No Notes: Mau agata 5-07 (Same as: l 02:00: Ditropan [place] 00 XL) "Do Not Crush" [place] No [...] agata 5-07 (Same as: l 02:00: Ditropan [place] 00 XL) "Do Not Crush" [place] No Notes: Memoria 5-07 (Same l 02:00: as:Pamelor [place] 00 , Aventyl) metoprolol No Notes: Memor ia tartrate 5-07 (Same as: l 02:00: Lopressor) [place] Trazodone No Notes: Memori a Hydrochlori 5-07 (Same As: l de 100 MG 02:00: Desyrel) Herm booker Oral Tablet 00 Zocor No Notes: Memoria 5-07 (Same as: l 02:00: Zocor) [place] Ditropan XL No Notes: Mau agata 5-07 (Same as: l 02:00: Ditropan [place] 00 XL) "Do Not Crush" [place] No Notes: Memoria 5-07 (Same l 02:00: as:Pamelor [place] 00 , Aventyl) metoprolol No Notes: Memor [...] tartrate 5-07 (Same as: l 02:00: Lopressor) [place] Trazodone No Notes: Memori a Hydrochlori 5-07 (Same As: l de 100 MG 02:00: Desyrel) Herm booker Oral Tablet 00 Zocor No Notes: Memoria 5-07 (Same as: l 02:00: Zocor) [place] Ditropan XL No Notes: Mau agata 5-07 (Same as: l 02:00: Ditropan [place] 00 XL) "Do Not Crush" [place] No [...] agata 5-07 (Same as: l 02:00: Ditropan [place] 00 XL) "Do Not Crush" [place] No Notes: Memoria 5-07 (Same l 02:00: as:Pamelor [place] 00 , Aventyl) metoprolol No Notes: Memor ia tartrate 5-07 (Same as: l 02:00: Lopressor) [place] Trazodone No Notes: Memori a Hydrochlori 5-07 (Same As: l de 100 MG 02:00: Desyrel) Herm booker Oral Tablet 00 Zocor No Notes: Memoria 5-07 (Same as: l 02:00: Zocor) [place] Ditropan XL No Notes: Mau agata 5-07 (Same as: l 02:00: Ditropan [place] 00 XL) "Do Not Crush" [place] No Notes: Memoria 5-07 (Same l 02:00: as:Pamelor [place] 00 , Aventyl) metoprolol No Notes: Memor ia tartrate 5-07 (Same as: l 02:00: Lopressor) [place] Trazodone No Notes: Memori a Hydrochlori 5-07 (Same As: l de 100 MG 02:00: Desyrel) Herm booker Oral Tablet 00 Zocor No Notes: Memoria 5-07 (Same as: l 02:00: Zocor) [place] 00 Ditropan XL No Notes: Mau agata [...] Memoria 5-06 (Same as: l 22:00: Pentasa) [place] 00 Do not open capsule. "Do Not Crush" Pentasa No Notes: Memoria 5-06 (Same as: l 22:00: Pentasa) [place] 00 Do not open capsule. "Do Not Crush" Pentasa No Notes: Memoria 5-06 (Same as: l 22:00: Pentasa) [place] 00 Do not open capsule. "Do Not Crush" Pentasa No Notes: Memoria 5-06 (Same as: l 22:00: Pentasa) [place] 00 Do not open capsule. "Do Not Crush" Pentasa No Notes: Memoria 5-06 (Same as: l 22:00: Pentasa) [place] 00 Do not open capsule. "Do Not [...] Memoria 5-06 (Same as: l 22:00: Pentasa) [place] 00 Do not open capsule. "Do Not Crush" Pentasa 0 No Notes: Memoria 5-06 (Same as: l 22:00: Pentasa) [place] 00 Do not open capsule. "Do Not Crush" Pentasa 0 No Notes: Memoria 5-06 (Same as: l 22:00: Pentasa) [place] 00 Do not open capsule. "Do Not Crush" Ketorolac 2013-0 No 4 days. Mau agata Tromethamin 5-06 l e 15 MG/ML 12:43: [place] Injectable 00 Solution Ketorolac 2013-0 No 4 days. Mau agata Tromethamin 5-06 l e 15 MG/ML 12:43: [place] Injectable 00 Solution Ketorolac 2013-0 No 4 days. Mau agata Tromethamin 5-06 l e 15 MG/ML 12:43: [place] Injectable 00 Solution Ketorolac 2013-0 No 4 [...] Tromethamin 5-06 l e 15 MG/ML 12:43: [place] Injectable 00 Solution Ketorolac 2013-0 No 4 days. Mau agata Tromethamin 5-06 l e 15 MG/ML 12:43: [place] Injectable 00 Solution Ketorolac 2013-0 No 4 days. Mau agata Tromethamin 5-06 l e 15 MG/ML 12:43: [place] Injectable 00 Solution Ketorolac 2013-0 No 4 days. Mau agata Tromethamin 5-06 l e 15 MG/ML 12:43: [place] Injectable 00 Solution Ketorolac 2013-0 No 4 [...] Memoria 5-05 (Same as: l 22:00: Habitrol) [place] 00 "Remove old patch before applicatio n of new patch" Nicotine No Notes: Memoria 5-05 (Same as: l 22:00: Habitrol) [place] 00 "Remove old patch before applicatio n of new patch" Nicotine No Notes: Memoria 5-05 (Same as: l 22:00: Habitrol) [place] 00 "Remove old patch before applicatio n of new patch" Nicotine No Notes: Memoria 5-05 (Same as: l 22:00: Habitrol) [place] 00 "Remove old patch before applicatio n of new patch" Nicotine No Notes: Memoria 5-05 (Same as: l 22:00: Habitrol) [place] 00 "Remove old patch before applicatio n of new patch" Nicotine No Notes: Memoria 5-05 (Same as: l 22:00: Habitrol) [place] 00 "Remove old patch before applicatio n of new patch" Nicotine No Notes: Memoria 5-05 (Same as: l 22:00: Habitrol) [place] 00 "Remove old patch before applicatio n of new patch" Nicotine No Notes: Memoria 5-05 (Same as: l 22:00: Habitrol) [place] 00 "Remove old patch before applicatio n of new patch" Nicotine No Notes: Memoria 5-05 (Same as: l 22:00: Habitrol) [place] 00 "Remove old patch before applicatio n of new patch" Nicotine No Notes: Memoria 5-05 (Same as: l 22:00: Habitrol) [place] 00 "Remove old patch before applicatio n of new patch" Nicotine No Notes: Memoria 5-05 (Same as: l 22:00: Habitrol) [place] 00 "Remove old patch before applicatio n of new patch" Nicotine No Notes: Memoria 5-05 (Same as: l 22:00: Habitrol) [place] "Remove old patch before applicatio n of new patch" Nicotine No Notes: Memoria 5-05 (Same as: l 22:00: Habitrol) [place] "Remove old patch before applicatio n of new patch" Nicotine No Notes: Memoria 5-05 (Same as: l 22:00: Habitrol) [place] 00 "Remove old patch before applicatio n [...] oria 5-05 IV push l 21:30: reconstitu [place] 00 te with 10 ml 0.9% sodium chloride and push over 2 minutes. (Same as: Protonix) Protonix No Notes: For Mem oria 5-05 IV push l 21:30: reconstitu [place] 00 te with 10 ml 0.9% sodium [...] oria 5-05 IV push l 21:30: reconstitu [place] 00 te with 10 ml 0.9% sodium chloride and push over 2 minutes. (Same as: Protonix) Protonix No Notes: For Mem oria 5-05 IV push l 21:30: reconstitu [place] 00 te with 10 ml 0.9% sodium chloride and push over 2 minutes. (Same as: Protonix) Protonix No Notes: For Mem oria 5-05 IV push l 21:30: reconstitu [place] 00 te with 10 ml 0.9% sodium chloride and push over 2 minutes. (Same as: Protonix) Protonix No Notes: For Mem oria 5-05 IV push l 21:30: reconstitu [place] 00 te with 10 ml 0.9% sodium [...] 4 cap, l Extended 11:54: BID, 0 [place] Release 00 Refill(s) Capsule [Pentasa] sertraline Yes 100 mg = 1 M emoria 100 mg oral 5-05 tab, PO, l tablet 11:54: Daily, # [place] 00 30 tab, 0 Refill(s) dicyclomine Yes [...] tab, PO, l Tablet 11:54: Daily, # [place] [Zantac] 00 30 tab, 0 Refill(s) Sodium Yes 0 Memoria Bicarbonate 5-05 Refill(s) l 11:54: [place] 00 methocarbam Yes 750 mg = 1 [...] tab, PO, l tablet 11:54: Daily, # [place] 00 30 tab, 0 Refill(s) dicyclomine Yes [...] 0 Memoria Bicarbonate 5-05 Refill(s) l 11:54: [place] 00 methocarbam Yes 750 mg = 1 [...] 4 cap, l Extended 11:54: BID, 0 [place] Release 00 Refill(s) Capsule [Pentasa] sertraline Yes [...] cap, PO, l Oral 11:54: Bedtime, # [place] Capsule 00 90 cap, 0 [Pamelor] Refill(s) [...] tab, PO, l Tablet 11:54: Daily, # [place] [Zantac] 00 30 tab, 0 Refill(s) Sodium [...] PO, l 3 MG 11:54: Daily, # [place] Extended 00 90 cap, 0 Release Refill(s) [...] tab, PO, l tablet 11:54: Daily, # [place] 00 30 tab, 0 Refill(s) dicyclomine Yes [...] PO, l 3 MG 11:54: Daily, # [place] Extended 00 90 cap, 0 Release Refill(s) [...] tab, PO, l tablet 11:54: Daily, # [place] 00 30 tab, 0 Refill(s) dicyclomine Yes [...] cap, PO, l Oral 11:54: Bedtime, # [place] Capsule 00 90 cap, 0 [Pamelor] Refill(s) 24 HR Yes 10 mg = 1 Memoria Oxybutynin 5-05 tab, PO, l chloride 10 11:54: Bedtime, # [place] MG Extended 00 30 tab, 0 Release [...] 0 Memoria Bicarbonate 5-05 Refill(s) l 11:54: [place] 00 methocarbam Yes 750 mg = 1 [...] PO, l 3 MG 11:54: Daily, # [place] Extended 00 90 cap, 0 Release Refill(s) [...] cap, PO, l Oral 11:54: Bedtime, # [place] Capsule 00 90 cap, 0 [Pamelor] Refill(s) [...] 0 Memoria Bicarbonate 5-05 Refill(s) l 11:54: [place] 00 methocarbam Yes 750 mg = 1 [...] cap, PO, l Oral 11:54: Bedtime, # [place] Capsule 00 90 cap, 0 [Pamelor] Refill(s) 24 HR Yes 10 mg = 1 Memoria Oxybutynin 5-05 tab, PO, l chloride 10 11:54: Bedtime, # [place] MG Extended 00 30 tab, 0 Release Refill(s) Tablet [Ditropan] Trazodone Yes 100 mg = 1 Me moria Hydrochlori 5-05 tab, PO, l de 100 MG 11:54: Bedtime, # [place] Oral Tablet 00 90 tab, 0 Refill(s) Ranitidine Yes 300 mg = 1 M emoria 300 MG Oral 5-05 tab, PO, l Tablet 11:54: Daily, # [place] [Zantac] 00 30 tab, 0 Refill(s) Sodium Yes 0 Memoria Bicarbonate 5-05 Refill(s) l 11:54: [place] 00 methocarbam Yes 750 mg = 1 [...] tab, PO, l tablet 11:54: Daily, # [place] 00 30 tab, 0 Refill(s) dicyclomine Yes [...] 0 Memoria Bicarbonate 5-05 Refill(s) l 11:54: [place] 00 methocarbam Yes 750 mg = 1 [...] 4 cap, l Extended 11:54: BID, 0 [place] Release 00 Refill(s) Capsule [Pentasa] sertraline Yes [...] 0 Memoria Bicarbonate 5-05 Refill(s) l 11:54: [place] 00 methocarbam Yes 750 mg = 1 [...] 4 cap, l Extended 11:54: BID, 0 [place] Release 00 Refill(s) Capsule [Pentasa] sertraline Yes [...] tab, PO, l Tablet 11:54: Daily, # [place] [Zantac] 00 30 tab, 0 Refill(s) Sodium Yes 0 Memoria Bicarbonate 5-05 Refill(s) l 11:54: [place] 00 methocarbam Yes 750 mg = 1 [...] PO, l 3 MG 11:54: Daily, # [place] Extended 00 90 cap, 0 Release Refill(s) [...] PO, l chloride 10 11:54: Bedtime, # [place] MG Extended 00 30 tab, 0 Release [...] PO, l 3 MG 11:54: Daily, # [place] Extended 00 90 cap, 0 Release Refill(s) [...] 4 cap, l Extended 11:54: BID, 0 [place] Release 00 Refill(s) Capsule [Pentasa] sertraline Yes 100 mg = 1 M emoria 100 mg oral 5-05 tab, PO, l tablet 11:54: Daily, # [place] 00 30 tab, 0 Refill(s) dicyclomine Yes [...] 0 Memoria Bicarbonate 5-05 Refill(s) l 11:54: [place] 00 methocarbam Yes 750 mg = 1 [...] 4 cap, l Extended 11:54: BID, 0 [place] Release 00 Refill(s) Capsule [Pentasa] sertraline Yes 100 mg = 1 M emoria 100 mg oral 5-05 tab, PO, l tablet 11:54: Daily, # [place] 00 30 tab, 0 Refill(s) dicyclomine Yes [...] cap, PO, l Oral 11:54: Bedtime, # [place] Capsule 00 90 cap, 0 [Pamelor] Refill(s) [...] tab, PO, l Tablet 11:54: Daily, # [place] [Zantac] 00 30 tab, 0 Refill(s) Sodium [...] Notes: Memoria 5-05 (Same l 09:01: as:MORPhin [place] 00 e Sulfate) Morphine No Notes: Memoria [...] Notes: Memoria 5-05 (Same l 09:01: as:MORPhin [place] 00 e Sulfate) Morphine No Notes: Memoria 5-05 (Same l 09:01: as:MORPhin [place] 00 e Sulfate) Morphine No Notes: Memoria 5-05 (Same l 09:01: as:MORPhin [place] 00 e Sulfate) Zofran No Notes: Memoria 5-05 (Same as: l 09:00: Zofran) [place] Lovenox No Notes: Memoria 5-05 (Same as: l 09:00: Lovenox) [place] Zofran No Notes: Memoria 5-05 (Same as: l 09:00: Zofran) [place] Lovenox No Notes: Memoria 5-05 (Same as: l 09:00: Lovenox) [place] Zofran No Notes: Memoria 5-05 (Same as: l 09:00: Zofran) [place] Lovenox No Notes: Memoria 5-05 (Same as: l 09:00: Lovenox) [place] Zofran No Notes: Memoria 5-05 (Same as: l 09:00: Zofran) [place] Lovenox No Notes: Memoria 5-05 (Same as: l 09:00: Lovenox) [place] Zofran No Notes: Memoria 5-05 (Same as: l 09:00: Zofran) [place] Lovenox No Notes: Memoria 5-05 (Same as: l 09:00: Lovenox) [place] Zofran No Notes: Memoria 5-05 (Same as: l 09:00: Zofran) [place] Lovenox No Notes: Memoria 5-05 (Same as: l 09:00: Lovenox) [place] Zofran No Notes: Memoria 5-05 (Same as: l 09:00: Zofran) [place] Lovenox No Notes: Memoria 5-05 (Same as: l 09:00: Lovenox) [place] Zofran No Notes: Memoria 5-05 (Same as: l 09:00: Zofran) [place] 00 Lovenox No Notes: Memoria 5-05 (Same [...] Immunizations Ordered Filled Immunization Date Status Comments [facility] e Immunization Name Name SARS-COV-2 COVID-19 2021-05-15 Completed Unive rsity of MODERNA VACCINE 00:00:00 [facility] SARS-COV-2 COVID-19 2021-05-15 Completed Unive rsity of MODERNA VACCINE 00:00:00 [facility] SARS-COV-2 COVID-19 2021-05-15 Completed Unive rsity of MODERNA VACCINE 00:00:00 [facility] ical Branch SARS-COV-2 COVID-19 2021-05-15 Completed Unive rsity of MODERNA 12+ YRS 00:00:00 [facility] V[facility] SARS-COV-2 COVID-19 2021-05-15 Completed Unive rsity of MODERNA 12+ YRS 00:00:00 [facility] VACCINE Branch SARS-COV-2 COVID-19 2021-05-15 Completed Unive rsity of MODERNA 12+ YRS 00:00:00 [facility] ical VACCINE Branch SARS-COV-2 COVID-19 2021-05-15 Completed Unive rsity of MODERNA 12+ YRS 00:00:00 [place] [facility] SARS-COV-2 COVID-19 2021-04-17 Completed Unive rsity of MODERNA VACCINE 00:00:00 [facility] ical Branch SARS-COV-2 COVID-19 2021-04-17 Completed Unive rsity of MODERNA VACCINE 00:00:00 [facility] ical Branch SARS-COV-2 COVID-19 2021-04-17 Completed Unive rsity of MODERNA VACCINE 00:00:00 [place] [facility] SARS-COV-2 COVID-19 2021-04-17 Completed Unive rsity of MODERNA 12+ YRS 00:00:00 [facility] ical VACCINE Branch SARS-COV-2 COVID-19 2021-04-17 Completed Unive rsity of MODERNA 12+ YRS 00:00:00 [facility] ical VACCINE Branch SARS-COV-2 COVID-19 2021-04-17 Completed Unive rsity of MODERNA 12+ YRS 00:00:00 [facility] ical VACCINE Branch SARS-COV-2 COVID-19 2021-04-17 Completed Unive rsity of MODERNA 12+ YRS 00:00:00 [facility] ical VACCINE Branch TDAP 2018-04-13 Completed [facility] of 00:00:00 [facility] TDAP 2018-04-13 Completed [facility] of 00:00:00 [facility] TDAP 2018-04-13 Completed [facility] of 00:00:00 [facility] TDAP 2018-04-13 Completed [facility] of 00:00:00 [facility] TDAP 2018-04-13 Completed [facility] of 00:00:00 [facility] TDAP 2018-04-13 Completed [facility] of 00:00:00 [facility] TDAP 2018-04-13 Completed [facility] of 00:00:00 [facility] Tdap 2018-04-13 Completed [facility] 00:00:00 [facility] Td 2018-04-13 Completed [facility] 00:00:00 [facility] Td 2018-04-13 Completed [facility] 00:00:00 [facility] Td 2018-04-13 Completed [facility] 00:00:00 [facility] Td 2018-04-13 Completed [facility] 00:00:00 Hospital Tdap 2018-04-13 Completed [facility] 00:[facility]:00 Hospital Vital Signs Vital Name Observation Time Observation Value Comments Source WEIGHT 2023-01-10 13:58:00 60.51 kg WEIGHT 2023-01-10 13:58:00 60.51 kg Systolic blood 2022-12-06 18:27:00 120 mm[Hg] Univer sity of pressure [facility] Diastolic blood 2022-12-06 18:27:00 75 mm[Hg] Unive rsity of pressure [facility] Heart rate 2022-12-06 18:27:00 54 /min [facility] Respiratory rate 2022-12-06 18:27:00 16 /min Univ ersity [facility] Body height 2022-12-06 18:27:00 154.9 cm [facility] Body weight 2022-12-06 18:27:00 58.786 kg [facility] BMI 2022-12-06 18:27:00 24.49 kg/m2 [facility] Oxygen saturation in 2022-12-06 18:27:00 93 /min [facility] Arterial blood by [facility] Pulse oximetry Branch HEIGHT 2022-09-13 11:50:00 153.7 [...] 2021-11-30 15:18:00 160 mm[Hg] Univer sity of [facility] Diastolic blood 2021-11-30 15:18:00 82 mm[Hg] Unive rsity of [facility] Heart rate 2021-11-30 14:45:00 59 /min [facility] Body temperature 2021-11-30 14:45:00 36.56 Carla [facility] 2021-11-30 14:45:00 18 /min [facility] Body height 2021-11-30 14:45:00 154.9 cm [facility] Body weight 2021-11-30 14:45:00 58.832 kg [facility] BMI 2021-11-30 14:45:00 24.51 kg/m2 [facility] Heart rate 2022-09-13 11:50:00 60 /min [facility] Body temperature 2022-09-13 11:50:00 36.22 Carla [facility] Respiratory rate 2022-09-13 11:50:00 16 /min [facility] Body height 2022-09-13 11:50:00 153.7 cm actual [facility] Body weight 2022-09-13 11:50:00 58.741 kg [facility] BMI 2022-09-13 11:50:00 24.87 kg/m2 [facility] Oxygen saturation in 2022-09-13 11:50:00 96 /min [facility] Arterial blood by Medical Ce [facility]ter Pulse oximetry Systolic blood 2022-06-21 14:37:00 154 mm[Hg] [facility] Diastolic blood 2022-06-21 14:37:00 85 mm[Hg] [facility] Heart rate 2022-06-21 14:37:00 86 /min [facility] Body temperature 2022-06-21 14:37:00 36.28 Carla [facility] Respiratory rate 2022-06-21 14:37:00 18 /min [facility] Body height 2022-06-21 14:37:00 154.9 cm [facility] Body weight 2022-06-21 14:37:00 58.65 kg [facility] BMI 2022-06-21 14:37:00 24.43 kg/m2 [facility] Oxygen saturation in 2022-06-21 14:37:00 95 /min [facility] Arterial blood by Medical Ce [facility]ter Pulse oximetry Weight 2014-05-16 14:54:00 [facility] [place] BMI Calculated 2014-05-16 14:54:00 [facility] [place] Height 2014-05-16 14:54:00 160.02 cm [facility] [place] Respitory Rate 2014-01-02 20:58:00 [facility] [place] Heart Rate 2014-01-02 20:58:00 [facility] [place] Temperature Oral (F) 2014-01-02 20:58:00 98.4 F [facility] [place] Diastolic (mm Hg) 2014-01-02 20:58:00 Mem orial [place] Systolic (mm Hg) 2014-01-02 20:58:00 Mau rial [place] Temperature Oral (F) 2014-01-02 16:23:00 98.2 F [facility] [place] Heart Rate 2014-01-02 16:23:00 [facility] [place] Respitory Rate 2014-01-02 16:23:00 [facility] [place] Systolic (mm Hg) 2014-01-02 16:23:00 Mau rial [place] Diastolic (mm Hg) 2014-01-02 16:23:00 Mem orial [place] Diastolic (mm Hg) 2014-01-02 12:20:00 Mem orial [place] Systolic (mm Hg) 2014-01-02 12:20:00 Mau rial [place] Respitory Rate 2014-01-02 12:20:00 [facility] [place] Temperature Oral (F) 2014-01-02 12:20:00 98.5 F [facility] [place] Heart Rate 2014-01-02 12:20:00 [facility] [place] Weight 2013-12-30 08:54:00 [facility] [place] Height 2013-12-30 08:54:00 162.56 cm [facility] [place] BMI Calculated 2013-12-30 08:54:00 [facility] [place] Weight 2013-12-30 08:52:00 [facility] [place] BMI Calculated 2013-12-30 08:52:00 [facility] [place] Height 2013-12-30 08:52:00 162.56 cm Morenita Agrawal Weight 2013-12-30 08:40:00 Morenita Agrawal BMI Calculated 2013-12-30 08:40:00 Morgan Mccann Height 2013-12-30 08:40:00 162[facility] Procedure Date / Time Performing Clinician Source Performed ASSIGNMENT OF BENEFITS 2022-12-06 18:06:09 Doctor Unassigned, No [facility] CBC W/PLT COUNT & AUTO 2022-09-13 11:59[facility] Center COMPREHENSIVE METABOLIC 2022-09-13 11:59:00 [facility] PANEL Center CBC W/PLT COUNT & AUTO 2022-09-13 11:59:00 [facility] DIFFERENTIAL Center CT HEART-CORONARY 2022-07-18 15:37:00 [facility] ARTERIES CALCIUM SCORE Center SCREENING WITHOUT IV CONTRAST 2D ECHO W/ DOPPLER 2022-07-18 13:04:08 [facility] (CW/PW/COLOR) [place] ECG 12-LEAD 2022-06-21 14:31:02 [facility] ECG 12-LEAD 2022-06-21 14:31:02 Unknown, [id number] [facility] CBC W/PLT COUNT & AUTO 2022-06-21 14:30:00 [facility] DIFFERENTIAL Center COMPREHENSIVE METABOLIC 2022-06-21 14:30:00 [facility] PANEL Center CBC W/PLT COUNT & AUTO 2022-06-21 14:30:00 [facility] DIFFERENTIAL Center NM MYOCARDIAL PERFUSION 2022-05-16 16:14:00 [facility] SPECT, PHARM Center APTT 2022-05-16 15:02:00 Claud[facility] Umanz[facility] TREADMILL 2022-05-16 13:51:06 Unknown, Hl7 [facility](NON-NUCLEAR Center TREADMILL) ECG 12-LEAD 2022-05-16 13:28:19 Unknown, Hl7 [facility] ECG 12-LEAD 2022-05-16 13:28:19 Unknown, Hl7 [facility] ECG 12-LEAD 2022-05-16 13:27:51 Unknown, Hl7 [facility] ECG 12-LEAD 2022-05-16 13:27:51 Unknown, Hl7 [facility] APTT 2022-05-16 03:57:00 [facility] ONLY[facility] 2022-05-16 03:57:00 Leanne Mcdonnell [facility] BASIC METABOLIC PANEL 2022-05-16 03:57:00 Leanne Mcdonnell [facility] MAGNESIUM 2022-05-16 03:57:00 Leanne Mcdonnell [facility] APTT 2022-05-15 16:09:00 [facility] ([facility] ONLY[facility] 2022-05-15 05:43:00 [facility]15 05:43:00 [facility] 12-LEAD 2022-05-15 01:50:44 [facility] ECG 12-LEAD 2022-05-15 01:50:44 Unknown, Hl7 [facility] HIGH SENSITIVITY 2022-05-15 01:30:[facility] ECG 12-LEAD 2022-05-14 23:03:01 [facility] 12-LEAD 2022-05-14 23:03:01 Unknown, Hl7 [facility] PLATELET COUNT 2022-05-14 22:47:00 [facility] 2022-05-14 22:47:00 [facility] LIPID PANEL 2022-05-14 22:47:00 Noé, Claudia S [facility] HIGH SENSITIVITY 2022-05-14 22:47:00 Noé, Claudia S [facility] SARS-COV2/RT-PCR ([facility] & 2022-05-14 21:18:00 Noé, Claudia S [facility] REF LABS) [facility] HIGH SENSITIVITY 2022-05-14 18:33:00 Andrew Hernandez [facility] TROPONIN I [facility] ECG 12-LEAD 2022-05-14 18:29:48 [facility] 2022-05-14 18:29:48 Unknown, Hl7 [facility] CBC W/PLT COUNT & AUTO 2022-05-14 16:55:00 [facility] CBC W/PLT COUNT & AUTO 2022-05-14 16:55:00 [facility] COMPREHENSIVE METABOLIC 2022-05-14 16:55:00 [facility]EL [facility] HIGH SENSITIVITY 2022-05-14 16:55:00 [facility] XR CHEST 2 VIEWS 2022-05-14 16:30:00 [facility] 2022-05-14 16:13:36 Unknown, Hl7 [facility] ECG 12-LEAD 2022-05-14 16:13:36 Noé, Claudia S [facility] EKG-SCANNED 2022-05-14 00:00:00 Provider, Default [facility] Scanning [facility] Abdominal aorta [facility] angiogram Abdominal hysterectomy [facility] Angiography of renal [facility] arteries, bilateral Appendectomy [facility] angiography Suspension of bladder [facility]lectomy [facility] Bladder augmentation [facility] Plan of Care Planned Activity Planned [...] [facility] 00:00:00 [code = 71136264] Medical Ce nter Future Scheduled 2025-05-14 Lipid panel (procedure) [facility] Test 00:00:00 [code = 18665848] Medical Ce nter Future Scheduled 2025-05-14 Lipid panel (procedure) [facility] Test 00:00:00 [code = 67158481] Medical Ce nter Future Scheduled 2025-05-14 Lipid panel (procedure) [facility] Test 00:00:00 [code = 66171763] Medical Ce nter Future Scheduled 2025-05-14 Lipid panel (procedure) [facility] Test 00:00:00 [code = 70724060] Medical Ce nter Future Scheduled 2025-05-14 Lipid panel (procedure) [facility] Test 00:00:00 [code = 81764098] Medical Ce nter Future Scheduled 2023-05-28 IMM Influenza [facility]al [facility] 00:[facility]:00 (>/= 19 yrs) [code = IMM Influenza Seasonal (>/= 19 yrs)] Future Scheduled 2023-05-28 IMM Influenza Seasonal [facility] 00:00:00 (>/= 19 yrs) [code = IMM Influenza Seasonal (>/= 19 yrs)] Future Scheduled 2023-04-28 INFLUENZA VACCINE (Season [facility] Test 00:00:00 Ended) [code = INFLUENZA [facility] VACCINE (Season Ended)] Future Scheduled 2023-01-17 Hepatitis C screening [facility] 07:58:38 (procedure) [code = Hospital 216619312] Future Scheduled 2023-01-17 Screening for malignant [facility] 07:58:38 neoplasm of cervix Hospital (procedure) [code = 313695004] Future Scheduled 2023-01-17 COLONOSCOPY SCREENING [facility] 07:58:38 [code = COLONOSCOPY Hospital SCREENING] Future Scheduled 2023-01-17 SHINGLES VACCINES (1 of [facility] 07:58:38 2) [code = SHINGLES Hospital VACCINES (1 of 2)] Future Scheduled 2023-01-17 BREAST CANCER SCREENING [facility] 07:58:38 [code = BREAST CANCER Hospit al SCREENING] Future Scheduled 2023-01-17 INFLUENZA VACCINE [code = [facility] 07:58:38 INFLUENZA VACCINE] Hospital Future Scheduled 2023-01-17 COVID-19 VACCINE (#1) Me [...] 62 Years) (1 - PCV)] Future Scheduled 2022-09-06 Screening for malignant [facility] 07:49:10 neoplasm of colon Medicine (procedure) [code = 833955415] Future Scheduled 2022-09-06 Screening for malignant [facility] Test 07:49:10 neoplasm of breast Medicine (procedure) [code = 709880255] Future Scheduled 2022-09-06 Pneumococcal Combined (1 [facility] Test 07:49:10 - PCV) [code = Medicine Pneumococcal Combined (1 - PCV)] Future Scheduled 2022-09-06 Human immunodeficiency [facility] Test 07:49:10 virus screening Medicine (procedure) [code = 515054025] Future Scheduled 2022-09-06 Hepatitis C screening [facility] Test 07:49:10 (procedure) [code = Medicine 365140560] Future Scheduled 2022-09-06 Screening for malignant [facility] Test 07:49:10 neoplasm of cervix Medicine (procedure) [code = 738870927] Future Scheduled 2022-09-06 ZOSTER VACCINE (1 of 2) [facility] Test 07:49:10 [code = ZOSTER VACCINE (1 Me dicine of 2)] Future Scheduled 2022-09-06 COVID-19 Vaccine (3 - [facility] Test 07:49:10 Booster for Moderna Medicine series) [code = COVID-19 Vaccine (3 - Booster for Moderna series)] Future Scheduled 2022-09-06 FLU VACCINE > [address] [facility] Test 07:49:10 [code = FLU VACCINE > 6 Medi cine MONTHS] Future Scheduled 2022-09-06 Medicare IPPE (Welcome to [facility] Test 07:49:10 Medicare) [code = Medicine Medicare IPPE (Welcome to Medicare)] Future Scheduled 2022-09-06 TETANUS SHOT (ADULT) [facility] Test 07:49:10 [code = TETANUS SHOT Medicin [...] YEAR if no IPPE)] Future Scheduled 2022-08-17 INFLUENZA VACCINE [code = [facility] 18:22:05 INFLUENZA VACCINE] Hospital Future Scheduled 2022-08-17 COVID-19 VACCINE (#1) [facility] 18:22:05 [code = COVID-19 VACCINE Hos pital (#1)] Future Scheduled 2022-08-17 Screening for malignant [facility] 18:22:05 neoplasm of cervix Hospital (procedure) [code = 460110841] Future Scheduled 2022-08-17 COLONOSCOPY SCREENING [facility] 18:22:05 [code = COLONOSCOPY Hospital SCREENING] Future Scheduled 2022-08-17 SHINGLES VACCINES (1 of [facility] 18:22:05 2) [code = SHINGLES Hospital VACCINES (1 of 2)] Future Scheduled 2022-08-17 BREAST CANCER SCREENING [facility] 18:22:05 [code = BREAST CANCER Hospit al SCREENING] Future Scheduled 2022-08-17 INFLUENZA VACCINE [code = [facility] 18:22:05 INFLUENZA VACCINE] Hospital Future Scheduled 2022-08-17 COVID-19 VACCINE (#1) [facility] 18:22:05 [code = COVID-19 VACCINE Hos pital (#1)] Future Scheduled 2022-08-17 Screening for malignant [facility] 18:22:05 neoplasm of cervix Hospital (procedure) [code = 615534106] Future Scheduled 2022-08-17 [facility]ONOSCOPY [facility]CREENING [facility] 18:22:05 [code = COLONOSCOPY Hospital SCREENING] Future Scheduled 2022-08-17 SHINGLES VACCINES (1 of [facility] 18:22:05 2) [code = SHINGLES Hospital VACCINES (1 of 2)] Future Scheduled 2022-08-17 BREAST CANCER SCREENING [facility] 18:22:05 [code = BREAST CANCER Hospit al SCREENING] Future Scheduled 2022-08-17 INFLUENZA VACCINE [code = [facility] 18:22:05 INFLUENZA VACCINE] Hospital Future Scheduled 2022-08-17 COVID-19 VACCINE (#1) [facility] 18:22:05 [code = COVID-19 VACCINE Hos pital (#1)] Future Scheduled 2022-08-17 Screening for malignant [facility] 18:22:05 neoplasm of cervix Hospital (procedure) [code = 143569154] Future Scheduled 2022-08-17 COLONOSCOPY [facility]CREENING [facility] 18:22:05 [code = COLONOSCOPY Hospital SCREENING] Future Scheduled 2022-08-17 SHINGLES VACCINES (1 of [facility] 18:22:05 2) [code = SHINGLES Hospital VACCINES (1 of 2)] Future Scheduled 2022-08-17 BREAST CANCER SCREENING [facility] 18:22:05 [code = BREAST CANCER Hospit al SCREENING] Future Scheduled 2022-05-28 IMM Influenza Seasonal H [...] Future Scheduled 2022-04-26 HEPATITIS B VACCINES (1 [facility] Test 16:18:33 of 3 - 3-dose series) Hospit al [code = HEPATITIS B VACCINES (1 of 3 - 3-dose series)] Future Scheduled 2022-04-26 COVID-19 VACCINE (#1) [facility] 16:18:33 [code = COVID-19 VACCINE Hos pital (#1)] Future Scheduled 2022-04-26 Screening for malignant [facility] 16:18:33 neoplasm of cervix Hospital (procedure) [code = 767665363] Future Scheduled 2022-04-26 [facility]ONOSCOPY [facility]CREENING [facility] 16:18:33 [code = COLONOSCOPY Hospital SCREENING] Future Scheduled 2022-04-26 SHINGLES VACCINES (1 of [facility] 16:18:33 2) [code = SHINGLES Hospital VACCINES (1 of 2)] Future Scheduled 2022-04-26 BREAST CANCER SCREENING [facility] 16:18:33 [code = BREAST CANCER Hospit al SCREENING] Future Scheduled 2022-04-26 INFLUENZA VACCINE [code = [facility] Test 16:18:33 INFLUENZA VACCINE] Hospital Future Scheduled 2021-11-03 COVID-19 VACCINE (1) [facility] 06:47:29 [code = COVID-19 VACCINE Hos pital (1)] Future Scheduled 2021-11-03 Screening for malignant [facility] Test 06:47:29 neoplasm of cervix Hospital (procedure) [code = 343205604] Future Scheduled 2021-11-03 COLONOSCOPY [facility]CREENING [facility] 06:47:29 [code = COLONOSCOPY Hospital SCREENING] Future Scheduled 2021-11-03 SHINGLES VACCINES (#1) [facility] 06:47:29 [code = SHINGLES VACCINES Ho spital (#1)] Future Scheduled 2021-11-03 BREAST CANCER SCREENING [facility] 06:47:29 [code = BREAST CANCER Hospit al SCREENING] Future Scheduled 2021-11-03 INFLUENZA VACCINE [code = [facility] Test 06:47:29 INFLUENZA VACCINE] Hospital Future Scheduled [...] 00:00:00 neoplasm of colon (procedure) [code = 617836285] Future Scheduled 2013 Screening for malignant [facility] Test 00:00:00 neoplasm of colon (procedure) [code = 693543870] Future Scheduled 2013 Screening for malignant [facility] Test 00:00:00 neoplasm of colon (procedure) [code = 649880378] Future Scheduled 2013 Screening for malignant [facility] Test 00:00:00 neoplasm of colon (procedure) [code = 339048713] Future Scheduled 2013 Screening for malignant [facility] Test 00:00:00 neoplasm of colon (procedure) [code = 025163374] Future Scheduled 2013 Screening for malignant [facility] Test 00:00:00 neoplasm of colon (procedure) [code = 073631699] Future Scheduled 2013 Screening for malignant [facility] Test 00:00:00 neoplasm of colon (procedure) [code = 456792902] Future Scheduled 2013 Screening for malignant [facility] Test 00:00:00 neoplasm of colon (procedure) [code = 761510531] Future Scheduled 2013 Screening for malignant [facility] Test 00:00:00 neoplasm of colon (procedure) [code = 782437788] Future Scheduled 2013 SHINGLES VACCINES ([address] [facility] Test 00:00:00 2) [facility] Future Scheduled 2013 SHINGLES VACCINES ([address] [facility] Test 00:00:00 2) [code = SHINGLES [facility] VACCINES (1 of 2)] Future Scheduled 2013 SHINGLES VACCINES ([address] [facility] Test 00:00:00 2) [code = [facility]INGL [facility] VACCINES (1 of 2)] Future Scheduled 2013 SHINGLES VACCINES ([address] [facility] Test 00:00[facility]00 [facility] Future Scheduled 2013 SHINGLES VACCINES ([address] [facility] Test 00:00:00 [facility]) [facility] Future Scheduled 2013 SHINGLES VACCINES ([address] [facility] Test 00:00:00 [facility]) [facility] Future [...] 00:00:00 neoplasm of cervix (procedure) [code = 913488035] Future Scheduled 1993 Screening for malignant [facility] Test 00:00:00 neoplasm of cervix (procedure) [code = 981359510] Future Scheduled 1993 Screening for malignant [facility] Test 00:00:00 neoplasm of cervix (procedure) [code = 304338278] Future Scheduled 1993 Screening for malignant [facility] Test 00:00:00 neoplasm of cervix (procedure) [code = 077464512] Future Scheduled 1993 Screening for malignant [facility] Test 00:00:00 neoplasm of cervix (procedure) [code = 190055920] Future Scheduled 1993 Screening for malignant [facility] Test 00:00:00 neoplasm of cervix (procedure) [code = 729468356] Future Scheduled 1993 Screening for malignant [facility] Test 00:00:00 neoplasm of cervix (procedure) [code = 337843446] Future Scheduled 1993 Screening for malignant [facility] Test 00:00:00 neoplasm of cervix (procedure) [code = 439546360] Future Scheduled 1993 Screening for malignant [facility] Test 00:00:00 neoplasm of cervix (procedure) [code = 515667764] Future Scheduled 1993 Screening for malignant [facility] Test 00:00:00 neoplasm of cervix (procedure) [code = 400570976] Future Scheduled 1993 Screening for malignant [facility] Test 00:00:00 neoplasm of cervix (procedure) [code = 351595973] Future Scheduled 1993 Screening for malignant [facility] Test 00:00:00 neoplasm of cervix (procedure) [code = 466434527] Future Scheduled 1993 Screening for malignant [facility] Test 00:00:00 neoplasm of cervix (procedure) [code = 612869724] Future Scheduled 1993 Screening for malignant [facility] Test 00:00:00 neoplasm of cervix (procedure) [code = 064661508] Future Scheduled 1993 Screening for malignant [facility] Test 00:00:00 neoplasm of cervix (procedure) [code = 846842826] Future Scheduled 1993 Screening for malignant [facility] Test 00:00:00 neoplasm of cervix (procedure) [code = 148240931] Future Scheduled 1993 Screening for malignant [facility] Test 00:00:00 neoplasm of cervix (procedure) [code = 264764690] Future Scheduled 1993 Screening for malignant [facility] Test 00:00:00 neoplasm of cervix (procedure) [code = 804501203] Future Scheduled 1984-02-27 Screening for malignant [facility] Test 00:00:00 neoplasm of cervix Medical C enter (procedure) [code = 252373015] Future Scheduled 1984-02-27 Screening for malignant [facility] Test 00:00:00 neoplasm of cervix Medical C enter (procedure) [code = 683625939] Future Scheduled 1984-02-27 Screening for malignant [facility] Test 00:00:00 neoplasm of cervix Medical C enter (procedure) [code = 506810315] Future Scheduled 1984-02-27 Screening for malignant [facility] Test 00:00:00 neoplasm of cervix Medical C enter (procedure) [code = 673625627] Future Scheduled 1984-02-27 Screening for malignant [facility] Test 00:00:00 neoplasm of cervix Medical C enter (procedure) [code = 138492758] Future Scheduled 1984-02-27 Screening for malignant [facility] Test 00:00:00 neoplasm of cervix Medical C enter (procedure) [code = 780600917] Future Scheduled 1981 HEPATITIS C SCREENING CH [...] SCREENING] Future Scheduled 1975 COVID-19 Vaccine (1) [facility] Test 00:00:00 [code = COVID-19 [...] 00:00:00 YRS (1 - PCV) [code = [facility] PNEUMOCOCCAL VACCINE 0-64 YRS (1 - PCV)] [...] breast Medical C enter (procedure) [code = 811787260] Future Scheduled 1963 CT Colonography (combo) [facility] Test 00:00:00 [code = CT Colonography [facility] (combo)] Future Scheduled 1963 Screening for malignant [facility] Test 00:00:00 neoplasm of colon Medical Ce nter (procedure) [code = 558972670] Future Scheduled 1963 Screening for malignant [facility] Test 00:00:00 neoplasm of colon Medical Ce nter (procedure) [code = 841588009] Future Scheduled 1963 Screening for malignant [facility] Test 00:00:00 neoplasm of colon Medical Ce nter (procedure) [code = 804807877] Future Scheduled 1963 Screening for malignant [facility] Test 00:00:00 neoplasm of colon Medical Ce nter (procedure) [code = 671387904] Future Scheduled 1963 Sigmoidoscopy [facility]] Medical Cente r Future Scheduled 1963 Screening for malignant [facility] Test 00:00:00 neoplasm of breast Medical C enter (procedure) [code = 552839026] Future Scheduled 1963 CT Colonography (combo) [facility] Test 00:00:00 [code = CT Colonography [facility] (combo)] Future Scheduled 1963 Screening for malignant [facility] Test 00:00:00 neoplasm of colon Medical Ce nter (procedure) [code = 089673257] Future Scheduled 1963 Screening for malignant [facility] Test 00:00:00 neoplasm of colon Medical Ce nter (procedure) [code = 151236265] Future Scheduled 1963 Screening for malignant [facility] Test 00:00:00 neoplasm of colon Medical Ce nter (procedure) [code = 066472208] Future Scheduled 1963 Screening for malignant [facility] Test 00:00:00 neoplasm of colon Medical Ce nter (procedure) [code = 689209402] Future Scheduled 1963 Sigmoidoscopy [facility]] Medical Cente r Future Scheduled 1963 Screening for malignant [facility] Test 00:00:00 neoplasm of breast Medical C enter (procedure) [code = 159695565] Future Scheduled 1963 CT Colonography (combo) [facility] Test 00:00:00 [code = CT Colonography [facility] (combo)] Future Scheduled 1963 Screening for malignant [facility] Test 00:00:00 neoplasm of colon Medical Ce nter (procedure) [code = 162428150] Future Scheduled 1963 Screening for malignant [facility] Test 00:00:00 neoplasm of colon Medical Ce nter (procedure) [code = 101257219] Future Scheduled 1963 Screening for malignant [facility] Test 00:00:00 neoplasm of colon Medical Ce nter (procedure) [code = 943137012] Future Scheduled 1963 Screening for malignant [facility] Test 00:00:00 neoplasm of colon Medical Ce nter (procedure) [code = 295566729] Future Scheduled 1963 Sigmoidoscopy [facility]] Medical Cente r Future Scheduled 1963 Screening for malignant [facility] Test 00:00:00 neoplasm of breast Medical C enter (procedure) [code = 603498502] Future Scheduled 1963 CT Colonography (combo) [facility] Test 00:00:00 [code = CT Colonography [facility] (combo)] Future Scheduled 1963 Screening for malignant [facility] Test 00:00:00 neoplasm of colon Medical Ce nter (procedure) [code = 650455900] Future Scheduled 1963 Screening for malignant [facility] Test 00:00:00 neoplasm of colon Medical Ce nter (procedure) [code = 371686569] Future Scheduled 1963 Screening for malignant [facility] Test 00:00:00 neoplasm of colon Medical Ce nter (procedure) [code = 934362738] Future Scheduled 1963 Screening for malignant [facility] Test 00:00:00 neoplasm of colon Medical Ce nter (procedure) [code = 403964463] Future Scheduled 1963 Sigmoidoscopy [facility]] Medical Cente r Future Scheduled 1963 Screening for malignant [facility] Test 00:00:00 neoplasm of breast Medical C enter (procedure) [code = 686336012] Future Scheduled 1963 CT Colonography (combo) [facility] Test 00:00:00 [code = CT Colonography [facility] (combo)] Future Scheduled 1963 Screening for malignant [facility] Test 00:00:00 neoplasm of colon Medical Ce nter (procedure) [code = 847417267] Future Scheduled 1963 Screening for malignant [facility] Test 00:00:00 neoplasm of colon Medical Ce nter (procedure) [code = 260008665] Future Scheduled 1963 Screening for malignant [facility] Test 00:00:00 neoplasm of colon Medical Ce nter (procedure) [code = 164778111] Future Scheduled 1963 Screening for malignant [facility] Test 00:00:00 neoplasm of colon Medical Ce nter (procedure) [code = 180510067] Future Scheduled 1963 Sigmoidoscopy [facility]] Medical Cente r Future Scheduled 1963 Screening for malignant [facility] Test 00:00:00 neoplasm of breast Medical C enter (procedure) [code = 609602468] Future Scheduled 1963 CT Colonography (combo) [facility] Test 00:00:00 [code = CT Colonography [facility] (combo)] Future Scheduled 1963 Screening for malignant [facility] Test 00:00:00 neoplasm of colon Medical Ce nter (procedure) [code = 740597490] Future Scheduled 1963 Screening for malignant [facility] Test 00:00:00 neoplasm of colon Medical Ce nter (procedure) [code = 918514351] Future Scheduled 1963 Screening for malignant [facility] Test 00:00:00 neoplasm of colon Medical Ce nter (procedure) [code = 031308879] Future Scheduled 1963 Screening for malignant [facility] Test 00:00:00 neoplasm of colon Medical Ce nter (procedure) [code = 404053267] Future Scheduled 1963 Sigmoidoscopy [code = CH [...] Future Scheduled IMM Influenza Seasonal [facility] May to October (>/= 19 yrs) [code = IMM Influenza Seasonal May to October (>/= 19 yrs)] Future Scheduled Screening for malignant [facility] neoplasm of colon (procedure) [code = 940275774] Future Scheduled [facility]orectal [facility] Annual (FIT/FOBT) Age 50 to 75 [code = Colorectal Cancer Scrn Annual (FIT/FOBT) Age 50 to 75] Future Scheduled Breast Cancer Scrn [facility] (Yearly) [code = Breast Cancer Scrn (Yearly)] Future Scheduled Screening for malignant [facility] neoplasm of cervix (procedure) [code = 671248928] Future Scheduled Screening for malignant [facility] neoplasm of cervix (procedure) [code = 668933679] Future Scheduled Cervical Cancer Scrn (3 [facility] Test Yrs) [code = Cervical Cancer Scrn (3 Yrs)] Future Scheduled COVID-19 Vaccine (1) [facility] [code = COVID-19 Vaccine (1)] Encounters Start End Encounter Admission Attending Care Care Encounter Source Date/Time Date/Time Type Type Clinicians Facility Department ID 2023-12-07 2023-12-07 Outpatient R SAURABH CARVAJAL [facility] B [id number] [facility] 09:30:00 09:30:00 SAURABH CARVAJAL [facility] 2023-05-11 2023-05-11 Outpatient [facility] [id number] [facility] 00:00:00 00:00:00 JAE 2023-01-16 2023-01-16 Travel 1.2.840.1 [id number] Methodi 00:00:00 00:00:[address] 3.430.2.7 0.2.7.3.698 Ho spita .3.905715 084.8 l .8 2023-01-16 2023-01-16 Transcribe Boris 1.2.840.1 [id number] Methodi 00:00:00 00:00:00 Orders Kamari [address]53.1.[address] 3.430.2.7 Hospit a .3.057474 l .8 2023-01-10 2023-01-10 [facility] [id number] SLE 13:49:37 13:49:37 [place] 2023-01-05 2023-01-05 Outpatient JEREMY ZHONG [facility] [id number] [facility] 00:00:00 00:00:00 Gavin edwards of Medicin e 2023-01-03 2023-01-03 Outpatient VINEET LIM [facility] [id number] SLE 00:00:00 00:00:00 [place] 2022-12-19 2022-12-19 Outpatient VINEET LIM [facility] [id number] SLE 00:00:00 00:00:00 JAE 2022-12-16 2022-12-16 [facility] [id number] [facility] 00:00:00 00:00:00 Only [facility] 2022-12-14 2022-12-14 [facility] 1.2.840.11 [id number] [facility] 00:00:00 00:00:00 Saurabh ORANTES 350.1.13.10 it y of WOMEN'S 4.2.7.2.686 [place] [id number] [address] 2022-12-06 2022-12-06 Outpatient R SAURABH CARVAJAL [facility] B [id number] Univers 13:00:00 13:52:57 SAURABH CARVAJAL ity [facility] 2022-12-06 2022-12-06 Office [facility] 1.2.840.114 [id number] Univers 13:00:00 13:52:57 Visit Saurabh ORANTES 350.1.13.10 it y of [place] [id number] [address] 2022-12-06 2022-12-06 Concepcion WOLF 1.2.840.114 [id number] [facility] 00:00:00 00:00:00 Only Unassigned, JUANCARLOS 350.1.13.10 ity of [place] [facility] 4.2.7.2.686 [place] [phone] [place] [address] [place] 2022-11-30 2022-11-30 Outpatient R SAURABH [facility]JAL [facility] B [id number] Univers 10:30:00 10:30:00 [facility] 2022-11-30 2022-11-30 Outpatient R SAURABH CARVAJAL [facility] B [id number] [facility] 10:30:00 10:30:00 [facility] 2022-10-04 2022-10-04 Telephone Ethan [facility] [id number] 00:00:00 00:00:00 [facility] 2022-09-13 2022-09-13 Office VINEET Lim [facility] [id number] 13:30:00 13:45:00 Visit [facility] 2022-09-13 2022-09-13 Outpatient VINEET LIM [facility] SLE [id number] SLE 11:41:47 11:41:47 [place] 2022-09-06 2022-09-06 Office JEREMY ZHONG [facility] 1.2.840.114 [id number] [facility] 07:39:49 09:09:52 Visit AMBULATOR 350.1.13.21 College Y 0.2.7.2.686 of [id number] [facility] 390 e 2022-09-02 2022-09-02 Documentat Riley [facility] [id number] 00:00:00 00:00:00 cedric Kiran [facility] 2022-07-18 2022-07-18 Outpatient VINEET PANTOJA SLE SLE [id number] SLE 14:13:32 23:59:00 JOHNNY 2022-07-18 2022-07-18 [facility] Kit [facility] [id number] 14:00:00 23:59:00 Encounter [facility] 2022-07-18 2022-07-18 Outpatient VINEET PANTOJA SLE SLE [id number] SLE 14:13:03 13:59:00 [facility] 2022-07-18 2022-07-18 [facility] [id number] 12:30:00 13:59:00 Encounter [facility] 2022-07-18 2022-07-18 [facility] Kit, [facility] [id number] 10:02:46 12:29:00 Encounter [facility] 2022-07-18 2022-07-18 Outpatient ARLYN GREGORIO SLE [id number] SLE 10:02:45 12:29:00 [facility] 2022-07-06 2022-07-06 Documentat Paxton [facility] [id number] 00:00:00 00:00:00 ion [facility] 2022-06-24 2022-06-24 Documentat Kit [facility] [id number] 00:00:00 00:00:00 ion [facility] 2022-06-23 2022-06-23 Documentat Riley [facility] [id number] 00:00:00 00:00:00 cedric Qiana [facility] 2022-06-21 2022-06-21 Outpatient [facility] [id number] [facility] 00:00:00 23:59:00 Darryl 2022-06-21 2022-06-21 Office VINEET Lim [facility] [id number] 15:15:00 15:45:00 [facility] 2022-06-21 2022-06-21 Outpatient VINEET LIM [facility] SLE [id number] SLE 14:20:07 14:20:07 [place] 2022-06-21 2022-06-21 Orders [facility] [id number] 00:00:00 00:00:00 Clint [facility] 2022-06-20 2022-06-20 Office Deep [facility] [id number] 14:45:00 15:15:00 Visit Jae Denise [facility] 2022-06-20 2022-06-20 Outpatient KEVIN KIRBY [facility] [id number] SLE 00:00:00 00:00:00 JAE 2022-06-16 2022-06-16 Outpatient R SAURABH CARVAJAL [facility] B [id number] Univers 00:00:00 00:00:00 WEI SAURABH [facility] 2022-06-06 2022-06-06 Outpatient R SAURABH CARVAJAL [facility] B [id number] Univers 00:00:00 00:00:00 SAURABH CARVAJAL [facility] 2022-05-20 2022-05-20 Concepcion Lin [facility] [id number] 00:00:00 00:00:00 Only Qiana Edwards [facility] 2022-05-20 2022-05-20 Documentat Riley [facility] [id number] 00:00:00 00:00:00 ion Qiana [facility] 2022-05-14 2022-05-16 Hospital Harley Barragan [facility] [id number] 16:03:00 19:02:00 Encounter Leanne Mcdonnell [facility] 2022-05-14 2022-05-16 Inpatient ER ARLYN MCDONNELL Emergency [id number] SLE 16:03:00 19:02:00 LEANNE 2022-05-15 2022-05-15 Outpatient [facility] [id number] [facility] 00:00:00 23:59:00 Darryl 2022-05-15 2022-05-15 Travel [facility] [id number] [facility] 00:00[facility]00 00:00:00 [facility] 2022-05-14 2022-05-14 Orders [facility] [id number] 00:00:00 00:00:00 Only [facility] 2021-12-08 2021-12-08 Case Wei [facility] 1.2.840.114 [id number] Univers 00:00:00 00:00:00 Management Saurabh ORANTES 350.1.13.10 it[place] [id number] [address] 2021-12-07 2021-12-07 Ophthalmic Medical Technologist 2, Adc Lab [facility] 1.2.840.114 [id number] Univers 11:15:00 11:30:00 Visit Eddie Austin 350.1.13.10 [place] of [place] [id number] [address] 2021-12-07 2021-12-07 Outpatient R EDDIE AUSTIN [facility] [id number] Univers 11:15:00 11:15:00 ity of [facility] 2021-11-30 2021-11-30 Office Saurabh Carvajal [facility] 1.2. 840.114 [id number] Univers 09:00:00 10:42:48 Visit Eddie Austin 350.1.13.10 it[place] of [place] [id number] [address] 2021-11-30 2021-11-30 Outpatient R EDDIE [facility]IN [facility] [id number] Univers 09:00:00 10:42:48 ity of [facility] 2021-11-30 2021-11-30 Outpatient R EDDIE AUSTIN [facility] [id number] Univers 09:00:00 09:00:00 ity of [facility] 2021-11-24 2021-11-24 Pre Visit TERESA Cao 1.2.101.331 [id number] Univers 00:00:00 00:00:00 Outreach Maya CORADO 350.1.13.10 i ty of [place].2.[place] [id number] [place] [id number] [place] 2021-08-05 2021-08-05 Outpatient R JC AUSTINN [facility] [id number] Univers 15:30:00 15:30:00 ity of [facility] 2021-08-02 2021-08-02 Pre Visit KileyFANTASMA diazFrancine 1.2.664.492 [id number] Univers 00:00:00 00:00:00 Outreach Maya MARTINY 350.1.13.10 i ty of [place] [id number] [facility] 086 [place] 2021-04-22 2021-04-22 Letter LUCIANO Patel 1.2.840.114 [id number] Univers 00:00:00 00:00:00 (Out) Fannie Woodson JUANCARLOS 350.1.13.10 i ty of HOSPITAL 4.2.7.2.686 [place] as [id number] [facility] 019 [place] 2021-04-21 2021-04-21 Laboratory Only, Ang Db Test [facility] 1.2.8 40.114 [id number] Univers 16:03:49 16:18:49 Only Vielka Britton [facility] 350.1.13.10 ity of [place] 4.2.7.2.686 [place] as Delmar?Blea [phone] [address] [facility] 2021-04-21 2021-04-21 Outpatient R KANNAN [facility] [id number] Univers 15:45:00 15:45:00 VIELKA ity [facility] 2021-04-21 2021-04-21 Letter Doctor WOLF 1.2.840.114 [id number] Univers 00:00:00 00:00:00 (Out) UnassignedJUANCARLOS 350.1.13.10 ity of [place] [facility] 4.2.7.2.686 [place] as [id number] [address] 2021-04-21 2021-04-21 Letter Doctor LUCIANO Fox.2.840.114 [id number] Univers 00:00:00 00:00:00 (Out) UnassignedJUANCARLOS 350.1.13.10 ity of [place] [facility] 4.2.7.2.686 [place] as [id number] [address] 2021-04-21 2021-04-21 Orders Doctor LUCIANO Chi2.840.114 [id number] Univers 00:00:00 00:00:00 Only Unassigned, JUANCARLOS 350.1.13.[address] [facility] 4.2.7.2.686 [facility] as [id number] [address] 2021 2021-02-27 Inpatient BRENDA DaviesPM MEDI.01 [id number] [facility] 15:47:00 11:36:00 Shadi 01 [facility] 2021-02-25 2021-02-25 Outpatient Tulio BRENDACL LABO [id number] [facility] 18:45:00 18:45:00 Jaiden 73 [facility] 2020-12-28 2020-12-28 Outpatient MHIE MHIE [id number] [facility] 15:45:00 15:45:00 00 l [place] 2020-12-28 2020-12-28 Outpatient MHIE MHIE [id number] [facility] 15:45:00 15:45:00 00 l [place] 2020-07-02 2020-07-02 [facility] 1.2.336.863 [id number] 14:38:00 16:16:00 Elier Chris 350.1.13.10 [place] 4.2.7.2.686 [place] [id number] 2020-07-02 2020-07-02 Emergency X [facility] ERT [id number] Univers 14:28:00 14:28:00 ity [facility] 2020-04-29 2020-04-29 Emergency [facility] 1.2.850.140 [id number] 12:18:00 15:08:00 Eddie Chris 350.1.13.10 [place] 4.2.7.2.686 [place] [id number] 2020-04-29 2020-04-29 Emergency X [facility] ERT [id number] Univers 12:07:00 12:07:00 EDDIE ity [facility] 2020-03-17 2020-03-17 Emergency [facility] 1.2.674.642 [id number] 11:37:56 13:51:00 Elier Chris 350.1.13.10 [place] 4.2.7.2.686 [place] [id number] 2020-03-17 2020-03-17 Emergency X [facility] ERT [id number] Univers 11:26:00 11:26:00 [facility] 2020-03-17 2020-03-17 Orders Doctor LUCIANO 1.2.840.114 [id number] 00:00:00 00:00:00 Only Unassigned, JUANCARLOS 350.1.13.10 [place] [facility] 4.2.7.2.686 [id number] 2019-05-29 2019-05-29 Emergency X PADILLA, [facility] ERT [id number] Univers 06:47:32 09:46:00 MATEUS [facility] 2018-12-10 2018-12-10 Office nullFlavo Family [id number] [facility] 21:03:58 22:56:31 Visit r Practice l Katharine Andrews Same Day 2018-12-10 2018-12-10 Emergency nullFlavo Emergency [id number] Memoria 16:20:39 17:56:00 r Center l (6520) ELIEZER Jenkins 2018-12-10 2018-12-10 Outpatient [facility] [id number] [place] 16:03:58 16:03:58 Health 2018-12-10 2018-12-10 Emergency [facility] [id number] [place] 11:20:39 11:20:39 [facility] 2017-09-01 2017-09-01 Emergency [facility] [id number] [place] 10:29:00 10:29:00 [facility] 2015-02-04 2015-02-05 Outpt Diag nullFlavo [facility] [id number] Memoria 13:00:00 04:59:00 Services r Outpatient 00 l Imaging Nghia Morin 2015-02-04 2015-02-05 Outpt Diag nullFlavo [facility] [id number] Memoria 13:00:00 04:59:00 Services r Outpatient 00 l Imaging Nghia Morin 2015-02-04 2015-02-04 Outpatient Ashish 2.16.840. 2.16.840.1. [id number] 08:00:00 23:59:00 Julian Zheng 1.048831. [id number] 3.615.0.1 5.0.487 98 9786-05-11 2015-01-06 Outpatient nullFlavo [facility] [id number] Memoria 15:04:00 04:59:00 r [place] 31 [facility] 2015-01-05 2015-01-06 Outpatient nullFlavo [facility] [id number] Memoria 15:04:00 04:59:00 r [place] 31 [facility] 2015-01-05 2015-01-05 Outpatient Silvano-Fu 2.16.840. 2.16.840. 1. [id number] 10:04:00 23:59:00 entes, 1.855863. [id number] 31 Julita M 3.615.0.1 5.0.916 14 8592-09-23 2014-05-20 [facility] [id number] [facility] 11:14:00 19:30:00 Outpatient r [place] 00 [facility] 2014-05-20 2014-05-20 Bedded [facility] [id number] [facility] 11:14:00 19:30:00 Outpatient r [place] 00 [facility] 2014-05-20 2014-05-20 Outpatient Francis, 2.16.840. 2.16.840.1. [id number] 06:14:00 14:30:00 Larry A 1.297403. [id number] 3.615.0.1 5.0.927 75 3449-05-05 2014-01-03 Inpatient Replaced by [facility] [id number] [place]oria 07:50:00 03:00:[address] 2013-12-30 2014-01-03 Inpatient Replaced by [facility] [id number] Memoria 07:50:00 03:00:[address] 2013-12-30 2014-01-02 Outpatient Terminella, 2.16.840. 2.16.840. 1. [id number] 02:50:00 22:00:00 Rivera 1.308423. [id number] 3.615.0.1 5.0.101 01 Results Test Description [...] s not applicable for dialysis estefanía santos Material Scheduler ID - FSECBC W/PLT COUNT & AUTO [id number] 14:24:12 Test Item Value Reference Range Interpretation [...] (BEAKER) (test code = 2801) COMPREHENSIVE METABOLIC [id number] 12:53:08 Test Item Value Reference Range Interpretation [...] not appl icable for dialysis patien ts Material Scheduler ID - MARCOCBC W/PLT COUNT & AUTO [id number] 12:38:19 Test Item Value Reference Range Interpretation [...] = 2801) CT, HEART CORONARY YESY, WO [id number] 10:02:00[facility] ppo-oon for dr limUnlisted Reason for Exam - Click Yes and Enter Reason Below->No [facility] 1965 Sex: FAddendum BeginsREPORT STATUS:A I concur with the nonvascular findings. Signed: Geena BuzzJacquelineLeo MDReport Verified Date/Time: 07/29/2022 10:02:26 Reading Location: [facility] Radiology ReadingRoomAddendum EndsFINAL REPORT CT scan for Coronary Calcium scoring, 18-Jul-22 INDICATION: This is a 57 -year old female with increased cardiac risk presents for calcium scoring TECHNIQUE: Spiral acquisition without contrast administration using a Siemens CT scan. Calcium score is analysed using the Blaze.ioa software. This exam was performed according to [...] The central pulmonary artery is normal in calibre.The thoracic aorta is normal in course, caliber, contour. There is mild calcification seen in the aortic root, also in the descending thoracic aorta. The arch vessel branching pattern is normal. Minimal calcification is seen in the takeoff of the arch vessel. The assessment of the pulmonary arteries and the thoracic aorta are limited as no intravenous contrast was administered. The cardiac chambers size are not enlarged, however, assessment is limited as no contrast was administered. The pericardiumis normal appearance. There is no evidence of pericardial effusion. No mitral annular calcification is seen. No aortic valvular calcification is identified. Calcium score and high-resolution, ECG synchronized computed tomography of the heart with attention to the coronary arteries was performed. Coronary calcification was analyzed using the Blaze.ioa system software. These are the results of the calciumscore evaluation (threshold = 130 HU): LM: = [...] chest wall and mediastinum appears unremarkable. No sign ificant adenopathy is seen in the mediastinum. In the lung windows, no endobronchial lesion is seen.No pleural effusion is identified. Scarring is identified right upper lobe near the apex. Overall, no suspicious pulmonary nodule is identified. Limited images of the upper abdomen reveals no acute abno rmalities. No acute bony pathology is seen. Surgical hardware is identified anterior aspect of the upper vertebral bodies. CONCLUSION: 1. Quantitative coronary artery calcium Agatston score of 286. Thecalcium score places patient greater than 95th percentile for her age group, using the DEAL database. There is moderate calcification identified in the proximal mid LAD, with mild calcification seen inproximal LCx, and mild calcification identified in the proximal/mid RCA. 2. Normal coronary artery origins. 3. No acute pulmonary pathology. No pulmonary nodule is seen. 4. Normal thoracic aortic calibre. Scattered calcification is seen. 5. Other findings as described above. 6. An addendum will be dictated by the Transitions Manager Radiologist regarding the nonvascular findings. THE REPORT WILL ONLY BE CONSIDERED COMPLETE AFTER THE ADDENDUM HAS BEEN DICTATED. Signed: Jean-Pierre Yarbrough MDReport Verified Date/T karissa: 07/23/2022 08:08:03 2D Echo W/Doppler(CW/PW/Color)2022-07-18 18:01:25Ejection FractionSLEH ECHO [facility]LAB [facility] W/Doppler(CW/PW/Color)2022-07-18 18:01:25Ejection FractionSLEH ECHO HEARTLAB [facility] W/Doppler(CW/PW/Color) 2022-07-18 18:01:25Ejection FractionSLEH ECHO HEARTLAB [facility] W/Doppler(CW/PW/Color)2022-07-18 18:01:25Ejection FractionSLEH ECHO HEARTLAB [facility] Echo W/Doppler(CW/PW/Color)2022-07-18 18:01:25Ejection FractionSLEH ECHO HEARTLAB [facility] W/Doppler(CW/PW/Color) 2022-07-18 18:01:25Ejection FractionSLEH ECHO HEARTLAB [facility] Hospital[facility]PRE[facility]ENSIVE METABOLIC [id number] 15:38:11 Test Item Value Reference Range Interpretation [...] (test code = 347) EGFR (BEAKER) 100 Interpretati on of eGFR (test code = 1092) mL/min/1.73 [...] not appl icable for dialysis patien ts Material Scheduler ID - BSCBC W/PLT COUNT & AUTO [id number] 15:15:49 Test Item Value Reference Range Interpretation [...] code = 2801) MYOCARD IMAGING, MULTI, PHARM, [id number] 16:45:00Unlisted Reason for Exam - Click Yes and Enter Reason Below->No [facility] : 1965 Sex: FFINAL REPORT PROCEDURE: Rest/Stress MYOCARDIAL PERFUSION SPECT with regadenoson\\XA9\\ CPT CODE: 19164 INDICATION: Chest pain R07.9 HISTORY: Cardiac risk [...] 22.5-36.0 H (BEAKER) (test code = 760) [id number] 04:51:58 Test Item Value Reference Range Interpretation Comments MAGNESIUM (BEAKER) (test code = 1.8 mg/dL 1.6-2.6 627) Material Scheduler ID - PIAYA LBASIC METABOLIC [id number] 04:51:57 Test Item Value Reference Range Interpretation [...] eGFR (test code = mL/min/1.73 values Stage D escription 1092) sq m Result G1 Sharron l [...] not appl icable for dialysis patien ts Material Scheduler ID - PIAYA [id number] 04:32:03 Test Item Value Reference Range Interpretation [...] WBC 0-0 (BEAKER) (test code = 413) [id number] 16:30:12 Test Item Value Reference Range Interpretation Comments PARTIAL THROMBOPLASTIN TIME 37.5 seconds 22.5-36.0 H (BEAKER) (test code = 760) [id number] 06:58:36 Test Item Value Reference Range Interpretation [...] (test code = 413) HIGH SENSITIVITY TROPONIN [id number] 02:22:02 Test Item Value Reference Range Interpretation Comments HIGH SENSITIVITY 182 pg/ml See_Comment H [Automated message] TROPONIN I (test code The sy stem which = 1929428) generated this result transmitted ref erence range: <=17. Th e reference range was not used to int erpret this result as normal/abnormal . Material Scheduler ID - PIAYA LThe ON AIR DIRECTOR STAT High Sensitivity Troponin-I results should be used in conjunction with other diagnostic information such as ECG, clinical observations and information, and patient symptoms to aid in the diagnosis of ND.SARS-CoV2/RT-PCR (Asymptomatic ONLY)2022-05-15 01:13:52 Test Item Value Reference Interpretation Comments Range SARS-COV2/RT-PCR Negative Negative The SARS-Co V-2 (test code = target nucleic 46931-9) acids are not detected in thi s [...] revoked sooner. Fact Sheet for Healthcare Providers: https://www.Ziipa/Documents/Xp ert%20Xpress%20SAR S%20CoV-2/Fact%20S heets/456-0634%20S ARS-COV-2%20HEALTH CARE%20PROVIDERS%2 0FACT%20SHEET.pdf Fact Sheet for Healthcare Patients: https://www.Ziipa/Documents/Xp ert%20Xpress%20SAR S%20CoV-2/Fact%20S heets/302-3801%20S ARS-COV-2%20PATIEN T%20FACT%20SHEET.p df Lab Interpretation Normal (test code = 39130-7) [facility]2022-05-15 01:13:52 Test Item Value Reference Interpretation Comments Range SARS-COV2/RT-PCR Negative Negative The SARS-Co V-2 (test code = target nucleic 02675-1) acids are not detected in thi s [...] revoked sooner. Fact Sheet for Healthcare Providers: https://www.Ziipa/Documents/Xp ert%20Xpress%20SAR S%20CoV-2/Fact%20S heets/302-3802%20S ARS-COV-2%20HEALTH CARE%20PROVIDERS%2 0FACT%20SHEET.pdf Fact Sheet for Healthcare Patients: https://www.Ziipa/Documents/Xp ert%20Xpress%20SAR S%20CoV-2/Fact%20S heets/302-3801%20S ARS-COV-2%20PATIEN T%20FACT%20SHEET.p df Lab Interpretation Normal (test code = 68050-0) [facility]Asymptomatic ONLY)2022-05-15 01:13:52 Test Item Value Reference Interpretation Comments Range SARS-COV2/RT-PCR Negative Negative The SARS-Co V-2 (test code = target nucleic 84777-0) acids are not detected in thi s [...] revoked sooner. Fact Sheet for Healthcare Providers: https://www.Ziipa/Documents/Xp ert%20Xpress%20SAR S%20CoV-2/Fact%20S heets/302-3802%20S ARS-COV-2%20HEALTH CARE%20PROVIDERS%2 0FACT%20SHEET.pdf Fact Sheet for Healthcare Patients: https://www.Ziipa/Documents/Xp ert%20Xpress%20SAR S%20CoV-2/Fact%20S heets/302-3801%20S ARS-COV-2%20PATIEN T%20FACT%20SHEET.p df Lab Interpretation Normal (test code = 89031-1) [facility]Asymptomatic ONLY)2022-05-15 01:13:52 Test Item Value Reference Interpretation Comments Range SARS-COV2/RT-PCR Negative Negative The SARS-Co V-2 (test code = target nucleic 18866-5) acids are not detected in thi s [...] revoked sooner. Fact Sheet for Healthcare Providers: https://www.Ziipa/Documents/Xp ert%20Xpress%20SAR S%20CoV-2/Fact%20S heets/302-3802%20S ARS-COV-2%20HEALTH CARE%20PROVIDERS%2 0FACT%20SHEET.pdf Fact Sheet for Healthcare Patients: https://www.Ziipa/Documents/Xp ert%20Xpress%20SAR S%20CoV-2/Fact%20S heets/302-3801%20S ARS-COV-2%20PATIEN T%20FACT%20SHEET.p df Lab Interpretation Normal (test code = 81902-3) [facility]As[facility]omatic ONLY)2022-05-15 01:13:52 Test Item Value Reference Interpretation Comments Range SARS-COV2/RT-PCR Negative Negative The SARS-Co V-2 (test code = target nucleic 66569-3) acids are not detected in thi s [...] revoked sooner. Fact Sheet for Healthcare Providers: https://www.Ziipa/Documents/Xp ert%20Xpress%20SAR S%20CoV-2/Fact%20S heets/302-3802%20S ARS-COV-2%20HEALTH CARE%20PROVIDERS%2 0FACT%20SHEET.pdf Fact Sheet for Healthcare Patients: https://www.Ziipa/Documents/Xp ert%20Xpress%20SAR S%20CoV-2/Fact%20S heets/302-3801%20S ARS-COV-2%20PATIEN T%20FACT%20SHEET.p df Lab Interpretation Normal (test code = 74872-4) [facility]Asymptomatic ONLY)2022-05-15 01:13:52 Test Item Value Reference Interpretation Comments Range SARS-COV2/RT-PCR Negative Negative The SARS-Co V-2 (test code = target nucleic 09165-0) acids are not detected in thi s [...] rapid, real-odalis e RT-PCR test intended for e qualitative detection of nucleic acid fr [...] revoked sooner. Fact Sheet for Healthcare Providers: https://www.Ziipa/Documents/Xp ert%20Xpress%20SAR S%20CoV-2/Fact%20S heets/302-3802%20S ARS-COV-2%20HEALTH CARE%20PROVIDERS%2 0FACT%20SHEET.pdf Fact Sheet for Healthcare Patients: https://www.Ziipa/Documents/Xp ert%20Xpress%20SAR S%20CoV-2/Fact%20S heets/302-3801%20S ARS-COV-2%20PATIEN T%20FACT%20SHEET.p df Lab Interpretation Normal (test code = 03039-8) [facility])2022-05-15 01:13:52 Test Item Value Reference Range Interpretation Comments SARS-COV2/RT-PCR Negative Negative The SARS-Co V-2 target (test code = nucleic acids a re not [id number]) detected in thi s specimen. Negative result [...] individuals suspected of CO VID-19 [facility]. This test has been authorized [...] revoked sooner. Fact Sheet for Healthcare Providers: https://www.[email or web address] m/Documents/Xpert%20Xpress%20SARS%20CoV-2/Fact%20Sheets/302-3802%81XKNE-SKI-4%20 HEALTHCARE%20PROVIDERS%20FACT%20SHEET.pdf Fact Sheet for Healthcare Patients: [email or web address] [email or web address]%20CoV-2/Fact%[email or web address]-[email or web address]%[email or web address]%20FACT%20SHEET .pdfHIGH SENSITIVITY TROPONIN [id number] 23:36:40 Test Item Value Reference Range Interpretation Comments HIGH SENSITIVITY 148 pg/ml See_Comment H [Automated message] TROPONIN I (test code The sid which = 5047130) generated this result transmitted ref erence range: <=17. Th e reference range was not used to int erpret this result as normal/abnormal . Material Scheduler ID - PIAYA LThe ON AIR DIRECTOR STAT High Sensitivity Troponin-I results should be used in conjunction with other diagnostic information such as ECG, clinical observations and information, and patient symptoms to aid in the diagnosis of ND.[id number] 23:35:01 Test Item Value Reference Range Interpretation Comments PARTIAL THROMBOPLASTIN TIME 36.2 seconds 22.5-36.0 H (BEAKER) (test code = 760) [id number] 23:33:40 Test Item Value Reference Range Interpretation Comments PARTIAL THROMBOPLASTIN TIME 35.9 seconds 22.5-36.0 (BEAKER) (test code = 760) LIPID [id number] 23:31:17 Test Item Value Reference Range Interpretation [...] Borderline 130-159 High 160-189 Very High >=190 Material Scheduler ID - DANUTA MPLATELET [id number] 23:02:35 Test Item Value Reference Range Interpretation Comments PLATELET COUNT (BEAKER) (test 166 K/CU MM 150-450 code = 756) Material Scheduler ID - 6000HIGH SENSITIVITY TROPONIN [id number] 19:17:02 Test Item Value Reference Range Interpretation Comments HIGH SENSITIVITY 57 pg/ml See_Comment H [Automated message] TROPONIN I (test code = The system which 8658652) generated this result transmitted ref erence range: <=17. Th e reference range was not used to int erpret this result as normal/abnormal . Material Scheduler ID - DANUTA MThe ON AIR DIRECTOR STAT High Sensitivity Troponin-I results should be used in conjunction with other diagnostic information such as ECG, clinical observations and information, and patient symptoms to aid in the diagnosis of ND.HIGH SENSITIVITY TROPONIN [id number] 17:36:27 Test Item Value Reference Range Interpretation Comments HIGH SENSITIVITY 22 pg/ml See_Comment H [Automated message] TROPONIN I (test code = The system which 3897191) generated this result transmitted ref erence range: <=17. Th e reference range was not used to int erpret this result as normal/abnormal . Material Scheduler ID - DANUTA Hannae ON AIR DIRECTOR STAT High Sensitivity Troponin-I results should be used in conjunction with other diagnostic information such as ECG, clinical observations and information, and patient symptoms to aid in the diagnosis of ND.COMPREHENSIVE METABOLIC [id number] 17:29:31 Test Item Value Reference Range Interpretation [...] not appl icable for dialysis patien ts Material Scheduler ID - DANUTA MCBC W/PLT COUNT & AUTO [id number] 17:18:57 Test Item Value Reference Range Interpretation [...] (test code = 2801) RAD, CHEST, 2 [id number] 16:44:00Reason for exam:->r/o ACS [facility] 1965 Sex: FFINAL REPORT INDICATION: r/o ACS COMPARISON: None TECHNIQUE: AP and lateral view ofthe chest. FINDINGS: Lungs and pleura: Clear lungs. No effusion.Heart and mediastinum: Normal heart size. Unremarkable mediastinal contours.Osseous structures: No acute abnormality.Other: None. IMPRESSION: No acute intrathoracic abnormality. Signed: Alyssia Nelson MDRephawthorn children's psychiatric [facility] Verified Date/Time: 05/14/2022 16:44:29 COMPREHENSIVE METABOLIC [id number] 05:15:00 Test Item Value Reference Range Interpretation [...] TOTAL (test code = ALKP) GLUCOSE BEDSIDE [id number] 19:48:00 Test Item Value Reference Range Interpretation Comments GLUCOSE BEDSIDE TESTING (test code = 98 mg/dL 70-110 N GLUBED) - XR SMALL [id number] 19:38:00 [facility] : 1965 Sex: F Name: RO MAYNARD [facility] : 1965 Age/S: 56 / F [address] [address] Unit #: [id number] Loc: [place] [address] Phys: Dawson Ramírez MD Acct: [id number] Dis Date: Status: ADM IN PHONE #:[phone] Exam Date: 02/26/20211899 FAX #: Reason: evaluate for Crohn's EXAMS: CPT: [id number] XRSMALL BOWEL 82337 Fluoro Time: 0 DAP (Gy m2): Air Kerma (mGy): Location of dictation: H 14 Small bowel follow-through: HISTORY: Right upper quadrant pain, evaluate for Crohn's disease. COMMENT: The institutional aide radiograph shows normal bowel gas pattern. No radiopaque densities noted. Linear opacity left lung base likely atelectasis or scarring. Kyphoplasty L2 with mild dextroscoliosis of the lumbar spine. S equential images were obtained after oral administration of [...] PAGE 1 Signed Report Name: RO MAYNARD [place] : 1965Age[facility]S: 56 [facility] F [address] [facility]: [id number] Loc: [place] [address] Phys: Dawson Ramírez MD Acct: [id number] Dis Date: Status: ADM IN PHONE #: [phone] Exam Date: 02/26/20211899 FAX #: Reason: evaluate for Crohn's EXAMS: CPT: [id number] XR SMALL BOWEL 39811 Fluoro Time: 0 DAP (Gy m2): Air Kerma (mGy): (Continued) Technologist: Zainab Moran, RT(R)(CT)(MRI) Trnscb Date/Time: 2021 (1938) t.SDR.PXC Orig Print D/T: S: 2021 (1941) PAGE 2 Signed ReportGLUCOSE BEDSIDE [id number] 17:05:00 Test Item Value Reference Range Interpretation Comments GLUCOSE BEDSIDE TESTING (test code 148 mg/dL 70-110 H = GLUBED) - HEPA IMAG INCL GB W [id number] 16:10:00 [facility] : 1965 Sex: F FAX:Jaiden Huff MD [phone] Camps: PM St: ADM FAX: Kamari Scott MD [phone] FAX: Dawson Hodge MD [phone] Name: RO MAYNARD [facility] : 1965 Age/S: 56/F [address] [address] Unit #: [id number] Loc: [address] [place] [address] Phys: Dawson Ramírez MD Acct: [id number] Dis Date: Status: ADM IN PHONE #: [phone] Exam Date: 2021 1553 FAX #: Reason: RUQ pain EXAMS: CPT: [id number] HEPA IMAG INCL GB W PHA 03644 EXAMINATION: Nuclear medicine hepatobiliary scan with ejection fra ction determination INDICATION: RUQ pain COMPARISON: MRCP previous day LOCATION: S17 TECHNIQUE: Dynamic imaging was obtained of the upper abdomen following the administration of 5.2 mCi Tc-99m CholetecIV. Ejection fraction was determined following gallbladder stimulation with fatty meal (8 ounces of Ensure). FINDINGS: After the administration of tracer, relatively prompt hepatic uptake is seen. Thisis followed by biliary excretion and subsequent passage of tracer into the gallbladder and small bowel. Gallbladder ejection fraction is determined to be 62% at 60 minutes, within normal limits. IMPRESSION: 1. Scintigraphically patent cystic and common bile ducts. 2. Normal gallbladder ejection fraction. at 1610 Reported and signedby: Nathan Lujan M.D. CC: Jaiden Antunez MD; Kamari Escalante MD; Dawson Ramírez MD Technologist: MANUEL Kevin Transcribed Date/Time/By: 2021 (1610) :[place]anaPE1 Orig Print D/T: S: 2021 (0174) PAGE 1 Signed ReportGLUCOSE BEDSIDE [id number] 11:56:00 Test Item Value Reference Range Interpretation Comments GLUCOSE BEDSIDE TESTING (test code 131 mg/dL 70-110 H = GLUBED) CBC W/AUTO [id number] 06:20:00 Test Item Value Reference Range Interpretation [...] NT WITH AUTO DIFFERENTI AL. COMPREHENSIVE METABOLIC [id number] 04:48:00 Test Item Value Reference Range Interpretation [...] 45-117 N TOTAL (test code = ALKP) [id number] 04:48:00 Test Item Value Reference Range Interpretation Comments PHOSPHOROUS (test code = PHOS) 3.8 MG/DL 2.5-4.9 N [id number] 04:48:00 Test Item Value Reference Range Interpretation Comments MAGNESIUM (test code = MAG) 2.1 MG/DL 1.8-2.4 N COMPREHENSIVE METABOLIC [id number] 04:46:00 Test Item Value Reference Range Interpretation [...] TOTAL (test Unit/L 45-117 code = ALKP) [id number] 04:46:00 Test Item Value Reference Range Interpretation Comments PHOSPHOROUS (test code = PHOS) MG/DL 2.5-4.9 [id number] 04:46:00 Test Item Value Reference Range Interpretation Comments MAGNESIUM (test code = MAG) MG/DL 1.8-2.4 [id number] 04:46:00 Test Item Value Reference Range Interpretation [...] may dexter yby method. Completed by Nursing: [id number] 04:46:00 Test Item Value Reference Range Interpretation Comments ALCOHOL (test code = ALC) < 3 MG/DL 0-10 N Completed by Nursing: NOCBC W/AUTO [id number] 04:36:00 Test Item Value Reference Range Interpretation [...] DIFF/SCN CRITERIA MDIFF) DRUGS OF ABUSE SCREEN [id number] 21:43:00 Test Item Value Reference Range Interpretation [...] [Auto mated code = AMPHETURN) SCcutoff message] [facility] system which generated this result transmit [...] [Automate d code = OPIATURN) SCcutoff message] [facility] system which generated this result transmit ulysses [...] [Automa ulysses code = METHAURN) SCcutoff message] [facility] system which generated this result transmit ulysses reference range : <300 NG/ML. The reference range was not used to interpret this result as normal/abnormal . - MRI [id number] 19:05:00 [facility] : 1965 Sex: F FAX: Jaiden Huff MD [phone] Camps: PM St: ADM FAX: Kamari Scott MD [phone] Name: RO MAYNARD [facility] : 1965 Age/S: 55/F [address] [facility] [address] Unit #: [id number] Loc: [place] [address] Phys: Jaiden Antunez MD Acct: [id number] Dis Date: Status: ADM IN PHONE #: [phone] Exam Date: 08/2020 1835 FAX #: Reason: deranged lfts, ruq pain EXAMS: CPT: [id number] MRI MRCP 61249 Location: 1 MRI ABDOMEN WITHOUT CONTRAST/M SACK CLEANING HAND HISTORY: Abnormal LFTs. Right upper quadrant pain COMPARISON: None available TECHNIQUE: Coronal SSFSE, axial 2-D fiesta, axial SSFSE, coronal 3-D MRCP, MRCP 2-D thick slab. FINDINGS: No gallstones or gallbladder wall thickening. No filling defects in the CBD to suggest choledocholithiasis. CBD measures 7 mm diameter is in tip is normally. Liver is of normal size.Punctate cyst in the left lobe. Spleen is of normal size Kidneys and adrenal glands demonstrate no acute findings. Pancreas is mildly atrophic. Pancreatic duct is visualized without significant dilatation or side branch ectasia. No evidence of ascites. No bowel obstruction. IMPRESSION: 1. No evidence of cholelithiasis or cholecystitis. 2. No evidence of choledocholithiasis. No biliary dilatation. at 1905 Reported and signedby: Sandi Redding MD CC: Jaiden Antunez MD; Kamari Escalante MD Technologist: Renee Mills, RT(R)(CT) Transcribed Date/Time/By: 02/25/2021 (1904) :[email or web address] Orig Print D/T: S: 02/25/2021 (1907) PAGE 1 Signed Report COVID 19 INHOUSE [id number] 16:22:00 Test Item Value Reference Range Interpretation Comments COVID 19 INHOUSE AG NEGATIVE Negative Per angela facturer, (test code = negative result s should [id number]) be treated aspr esumptive and, if inconsi [...] symptoms co nsistent with COVID-19. CBC W/AUTO [id number] 15:38:00 Test Item Value Reference Range Interpretation [...] WITH AUTO DIFFERENTIAL.NO PLT CLUMPS OBSERVED RBC [id number] 15:38:00 Test Item Value Reference Range Interpretation Comments PLATELET ESTIMATE (test ADEQUATE THOUSAND ADEQUATE code = PLTEST) PLATELET MORPHOLOGY (test NORMAL code = PLTMORPH) CBC W/AUTO [id number] 15:33:00 Test Item Value Reference Range Interpretation [...] code DIFF/SCN CRITERIA = MDIFF) CBC W/AUTO [id number] 15:33:00 Test Item Value Reference Range Interpretation [...] code DIFF/SCN CRITERIA = MDIFF) BASIC METABOLIC [id number] 14:26:00 Test Item Value Reference Range Interpretation [...] CA) 8.7 MG/DL 8.5-10.1 N HEPATIC FUNCTION [id number] 14:26:00 Test Item Value Reference Range Interpretation [...] 93 Unit/L 45-117 N code = ALKP) [id number] 14:26:00 Test Item Value Reference Range Interpretation Comments LIPASE (test code = LIP) 95 Unit/L 114-286 L UA RFLX MICR CULT IF [id number] 14:10:00 Test Item Value Reference Range Interpretation [...] Indication for culture: RiskForSepsis-no oth srcCBC W/AUTO [id number] 14:04:00 Test Item Value Reference Range Interpretation [...] (test code = DIFF/SCN CRITERIA MDIFF) CHEM [id number] 14:26:00 Test Item Value Reference Range Interpretation Comments Calcium Lvl (test code = Calcium Lvl) 9.7 8.5-10.5 [facility]py[facility]iqABYOHHNYGJ7413-51-64 14:26:00 Test Item Value Reference Range Interpretation Comments MCV (test code = MCV) 101.6 80.0-98.0 [facility] HospitalYrclliuDYERFEXPBZ4634-61-59 14:26:00 Test Item Value Reference Range Interpretation Comments MCH (test code = MCH) 35.5 pg 27.0-31.0 [facility] HospitalRyxgnvcTOZBFPUZQP3313-00-91 14:26:00 Test Item Value Reference Range Interpretation Comments Hgb (test code = Hgb) 13.3 12.0-16.0 [facility] HospitalZbzcmofPTJQVSEYOO8982-76-44 14:26:00 Test Item Value Reference Range Interpretation Comments Hct (test code = Hct) 37.9 36.0-48.0 [facility] HospitalRhxuexpTTCPDXSTJI3270-67-19 14:26:00 Test Item Value Reference Range Interpretation Comments RBC (test code = RBC) 3.73 4.20-5.40 [facility] HospitalCjjdvhkFAXYQZJLVP0755-75-84 14:26:00 Test Item Value Reference Range Interpretation Comments WBC (test code = WBC) 6.1 3.7-10.4 [facility] HospitalXmvmrpkIQVIAIGEXW5017-82-30 14:26:00 Test Item Value Reference Range Interpretation Comments MPV (test code = MPV) 8.0 7.4-10.4 [facility] HospitalWazhrmkRGGEURAXMC0478-52-22 14:26:00 Test Item Value Reference Range Interpretation Comments RDW (test code = RDW) 17.2 11.5-14.5 [facility] HospitalBhebkxmGILYLEFWJK3743-83-13 14:26:00 Test Item Value Reference Range Interpretation Comments Platelet (test code = Platelet) 223 133-450 [facility] HospitalMqvqwtfPNOLBNRXXI2816-12-24 14:26:00 Test Item Value Reference Range Interpretation Comments MCHC (test code = MCHC) 35.0 32.0-36.0 [facility] HospitalWzlootlJZCHSCKMAH8585-36-46 14:26:00 Test Item Value Reference Range Interpretation Comments INR (test code = INR) 0.93 0.85-1.17 [facility] HospitalJumfkszXCPHYPGQTV1666-34-02 14:26:00 Test Item Value Reference Range Interpretation [...] (test code = Calcium Lvl) 9.7 8.5-10.5 [facility] HospitalQsyxzndURKFCYYRCN3637-47-54 14:26:00 Test Item Value Reference Range Interpretation Comments MCV (test code = MCV) 101.6 80.0-98.0 [facility]LsmolbaCFCJORRFPA2704-82-15 14:26:00 Test Item Value Reference Range Interpretation Comments MCH (test code = MCH) 35.5 pg 27.0-31.0 [facility] HospitalLqgyntkYJDOILVFUA6601-40-39 14:26:00 Test Item Value Reference Range Interpretation Comments Hgb (test code = Hgb) 13.3 12.0-16.0 [facility] HospitalPrwxmdhDFLFKBHNYE2488-06-63 14:26:00 Test Item Value Reference Range Interpretation Comments Hct (test code = Hct) 37.9 36.0-48.0 [facility] HospitalNjrqhhjAUJPEJQIGB1238-18-52 14:26:00 Test Item Value Reference Range Interpretation Comments RBC (test code = RBC) 3.73 4.20-5.40 [facility] HospitalMsocdqtIOMXSQSZAL1469-74-95 14:26:00 Test Item Value Reference Range Interpretation Comments WBC (test code = WBC) 6.1 3.7-10.4 [facility] HospitalWlhyhdfUTCOABTNZL8945-00-90 14:26:00 Test Item Value Reference Range Interpretation Comments MPV (test code = MPV) 8.0 7.4-10.4 [facility] HospitalTqojtydXLAFBNHPFU3137-12-00 14:26:00 Test Item Value Reference Range Interpretation Comments RDW (test code = RDW) 17.2 11.5-14.5 [facility] HospitalBduyjhzDMNMDAMBSI3678-49-64 14:26:00 Test Item Value Reference Range Interpretation Comments Platelet (test code = Platelet) 223 133-450 [facility] HospitalUchkqdvKOVYSSIPEJ7736-97-28 14:26:00 Test Item Value Reference Range Interpretation Comments MCHC (test code = MCHC) 35.0 32.0-36.0 [facility] HospitalOlygsppQMPAJHVMDK9154-00-43 14:26:00 Test Item Value Reference Range Interpretation Comments INR (test code = INR) 0.93 0.85-1.17 [facility] HospitalRbtnbryFIHFYEQXHP7876-48-18 14:26:00 Test Item Value Reference Range Interpretation [...] (test code = Calcium Lvl) 9.7 8.5-10.5 [facility] HospitalEzcfdvrDJITHPNGTV0703-54-89 14:26:00 Test Item Value Reference Range Interpretation Comments MCV (test code = MCV) 101.6 80.0-98.0 [facility] HospitalJpawsihAHAJBQBZKL2249-39-99 14:26:00 Test Item Value Reference Range Interpretation Comments MCH (test code = MCH) 35.5 pg 27.0-31.0 [facility] HospitalPlghuvgLQGUIYPTNP7138-61-28 14:26:00 Test Item Value Reference Range Interpretation Comments Hgb (test code = Hgb) 13.3 12.0-16.0 [facility] HospitalMziiuulSWFQHVLQGG1881-24-26 14:26:00 Test Item Value Reference Range Interpretation Comments Hct (test code = Hct) 37.9 36.0-48.0 [facility] HospitalJpyuqdqTNCMECGJGC0531-85-55 14:26:00 Test Item Value Reference Range Interpretation Comments RBC (test code = RBC) 3.73 4.20-5.40 [facility] HospitalJmvwbrvIJSAEFRHTP9639-45-85 14:26:00 Test Item Value Reference Range Interpretation Comments WBC (test code = WBC) 6.1 3.7-10.4 [facility] HospitalIyejuxvVIBXANVQOP2217-45-92 14:26:00 Test Item Value Reference Range Interpretation Comments MPV (test code = MPV) 8.0 7.4-10.4 [facility] HospitalZfjapdhWDWPQKIKNY5338-84-58 14:26:00 Test Item Value Reference Range Interpretation Comments RDW (test code = RDW) 17.2 11.5-14.5 [facility] HospitalWvzzqpdKYUAFQWUKG7481-61-71 14:26:00 Test Item Value Reference Range Interpretation Comments Platelet (test code = Platelet) 223 133-450 [facility] HospitalNgvmmraJWXZQGGBCH0649-68-31 14:26:00 Test Item Value Reference Range Interpretation Comments MCHC (test code = MCHC) 35.0 32.0-36.0 [facility] HospitalGmgdfykCCPSVBZQQJ5313-88-06 14:26:00 Test Item Value Reference Range Interpretation Comments INR (test code = INR) 0.93 0.85-1.17 [facility] HospitalArybtnxCGTCECTOCA9024-94-02 14:26:00 Test Item Value Reference Range Interpretation [...] (test code = Calcium Lvl) 9.7 8.5-10.5 [facility] HospitalGfnyilmMXEACDZNYB3441-33-38 14:26:00 Test Item Value Reference Range Interpretation Comments MCV (test code = MCV) 101.6 80.0-98.0 [facility] HospitalZomvylfSQKNWFQUCF4718-93-14 14:26:00 Test Item Value Reference Range Interpretation Comments MCH (test code = MCH) 35.5 pg 27.0-31.0 [facility] HospitalPdbjtlpQPCXLMXDWJ5956-42-97 14:26:00 Test Item Value Reference Range Interpretation Comments Hgb (test code = Hgb) 13.3 12.0-16.0 [facility] HospitalCzlmwycIGPBDVUKYQ8317-38-42 14:26:00 Test Item Value Reference Range Interpretation Comments Hct (test code = Hct) 37.9 36.0-48.0 [facility] HospitalAxfjtyfZVSPRMLXVB7790-23-10 14:26:00 Test Item Value Reference Range Interpretation Comments RBC (test code = RBC) 3.73 4.20-5.40 [facility] HospitalJcijwuaTGMEABAYTS5785-19-38 14:26:00 Test Item Value Reference Range Interpretation Comments WBC (test code = WBC) 6.1 3.7-10.4 [facility] HospitalRnzpaaaEFUIWEIYND8276-11-86 14:26:00 Test Item Value Reference Range Interpretation Comments MPV (test code = MPV) 8.0 7.4-10.4 [facility] HospitalTpjmushXPPNDDRECV0976-81-58 14:26:00 Test Item Value Reference Range Interpretation Comments RDW (test code = RDW) 17.2 11.5-14.5 [facility] HospitalCpymeuoWQKOEYZIJM6753-23-39 14:26:00 Test Item Value Reference Range Interpretation Comments Platelet (test code = Platelet) 223 133-450 [facility] HospitalJuwrxurFHYVJXQBET5475-22-14 14:26:00 Test Item Value Reference Range Interpretation Comments MCHC (test code = MCHC) 35.0 32.0-36.0 [facility] HospitalQvtvukxGZOJIUAESB3077-44-07 14:26:00 Test Item Value Reference Range Interpretation Comments INR (test code = INR) 0.93 0.85-1.17 [facility] HospitalCnulrnxRTYYIBTZTJ9040-03-25 14:26:00 Test Item Value Reference Range Interpretation [...] (test code = Calcium Lvl) 9.7 8.5-10.5 [facility] HospitalGqautenXMRIBLKOGH2767-62-48 14:26:00 Test Item Value Reference Range Interpretation Comments MCV (test code = MCV) 101.6 80.0-98.0 [facility] HospitalXywllciNVCQZTVINP2010-82-48 14:26:00 Test Item Value Reference Range Interpretation Comments MCH (test code = MCH) 35.5 pg 27.0-31.0 [facility] HospitalBgqrtqhWYQLSPTIST0009-25-37 14:26:00 Test Item Value Reference Range Interpretation Comments Hgb (test code = Hgb) 13.3 12.0-16.0 [facility] HospitalStsxscnVDYGHYMBYD1056-95-43 14:26:00 Test Item Value Reference Range Interpretation Comments Hct (test code = Hct) 37.9 36.0-48.0 [facility] HospitalMiuybqyOATPIUDPLJ6527-10-19 14:26:00 Test Item Value Reference Range Interpretation Comments RBC (test code = RBC) 3.73 4.20-5.40 [facility] HospitalEzjsfgdYWBZUBTSNE5846-77-66 14:26:00 Test Item Value Reference Range Interpretation Comments WBC (test code = WBC) 6.1 3.7-10.4 [facility] HospitalGmfhpyqKENUHJJBAL7634-17-04 14:26:00 Test Item Value Reference Range Interpretation Comments MPV (test code = MPV) 8.0 7.4-10.4 [facility] HospitalOofwhqzUTUPVVGYUB4322-38-04 14:26:00 Test Item Value Reference Range Interpretation Comments RDW (test code = RDW) 17.2 11.5-14.5 [facility] HospitalMfnarwxRGXJYKIEDE3831-42-92 14:26:00 Test Item Value Reference Range Interpretation Comments Platelet (test code = Platelet) 223 133-450 [facility] HospitalMjcvbwfELVRQHXFOC6889-84-85 14:26:00 Test Item Value Reference Range Interpretation Comments MCHC (test code = MCHC) 35.0 32.0-36.0 [facility] HospitalAsbjuovIRASQIHMUX2253-43-08 14:26:00 Test Item Value Reference Range Interpretation Comments INR (test code = INR) 0.93 0.85-1.17 [facility] HospitalJwgewqdTVMPZOTOYW7531-33-77 14:26:00 Test Item Value Reference Range Interpretation Comments PT (test code = PT) 12.4 s 12.0-14.7 [facility]2014-09-22 14:26:00 Test Item Value Reference Range Interpretation Comments BUN (test code = BUN) 8 - [facility]2014-09-22 14:26:00 [...] (test code = Calcium Lvl) 9.7 8.5-10.5 [facility] HospitalKotbkwyFBCSCLJIKB9667-20-58 14:26:00 Test Item Value Reference Range Interpretation Comments MCV (test code = MCV) 101.6 80.0-98.0 [facility] HospitalNxqjayqASTLPNRSWW7944-08-37 14:26:00 Test Item Value Reference Range Interpretation Comments MCH (test code = MCH) 35.5 pg 27.0-31.0 [facility] HospitalDlqsewrLATLGFYFGU9604-17-61 14:26:00 Test Item Value Reference Range Interpretation Comments Hgb (test code = Hgb) 13.3 12.0-16.0 [facility] HospitalHqhwmdmCYJVXHXFYE8614-29-34 14:26:00 Test Item Value Reference Range Interpretation Comments Hct (test code = Hct) 37.9 36.0-48.0 [facility] HospitalFxvayupEAYLBGXIDN4801-90-51 14:26:00 Test Item Value Reference Range Interpretation Comments RBC (test code = RBC) 3.73 4.20-5.40 [facility] HospitalTmjdcyuOFXCYRJGSN6696-47-78 14:26:00 Test Item Value Reference Range Interpretation Comments WBC (test code = WBC) 6.1 3.7-10.4 [facility] HospitalNymlenlRIAVQVQVJZ7959-88-62 14:26:00 Test Item Value Reference Range Interpretation Comments MPV (test code = MPV) 8.0 7.4-10.4 [facility] HospitalUtnbdrnQAIADOHUPE0229-34-37 14:26:00 Test Item Value Reference Range Interpretation Comments RDW (test code = RDW) 17.2 11.5-14.5 [facility] HospitalSyfvajaISNUYSUEMY7526-58-76 14:26:00 Test Item Value Reference Range Interpretation Comments Platelet (test code = Platelet) 223 133-450 [facility] HospitalSllhviuLJJGGEPFKJ4704-87-93 14:26:00 Test Item Value Reference Range Interpretation Comments MCHC (test code = MCHC) 35.0 32.0-36.0 [facility] HospitalGsiesbwTBEXKCAYUL1101-57-68 14:26:00 Test Item Value Reference Range Interpretation Comments INR (test code = INR) 0.93 0.85-1.17 [facility] HospitalNqmzdciEGNTKAAZNB6695-50-69 14:26:00 Test Item Value Reference Range Interpretation [...] CO2 (test code = CO2) 29 24-32 [place] 951564-09-22 14:26:00 Test Item Value Reference Range Interpretation [...] (test code = Calcium Lvl) 9.7 8.5-10.5 [facility] HospitalYiypbwlCQIWIRFCTQ8522-34-08 14:26:00 Test Item Value Reference Range Interpretation Comments MCV (test code = MCV) 101.6 80.0-98.0 [facility] HospitalSrplzgsYHXHVEEKUT3334-96-70 14:26:00 Test Item Value Reference Range Interpretation Comments MCH (test code = MCH) 35.5 pg 27.0-31.0 [facility] HospitalCxdledlQLNASEACJE9129-85-71 14:26:00 Test Item Value Reference Range Interpretation Comments Hgb (test code = Hgb) 13.3 12.0-16.0 [facility]JbiiwkwMWOBVLKAAP2114-98-81 14:26:00 Test Item Value Reference Range Interpretation Comments Hct (test code = Hct) 37.9 36.0-48.0 [facility] HospitalAcixsvdRGVJPMTQMM3459-35-37 14:26:00 Test Item Value Reference Range Interpretation Comments RBC (test code = RBC) 3.73 4.20-5.40 [facility] HospitalFkyusntIUNJVFRVLR9656-80-47 14:26:00 Test Item Value Reference Range Interpretation Comments WBC (test code = WBC) 6.1 3.7-10.4 [facility] HospitalKljsmwgITUFJIUCWM1989-95-72 14:26:00 Test Item Value Reference Range Interpretation Comments MPV (test code = MPV) 8.0 7.4-10.4 [facility] HospitalHkyqgwzPXVDUQGQNN9212-12-29 14:26:00 Test Item Value Reference Range Interpretation Comments RDW (test code = RDW) 17.2 11.5-14.5 [facility] HospitalPcqodmvJLDSXJECUB2714-13-52 14:26:00 Test Item Value Reference Range Interpretation Comments Platelet (test code = Platelet) 223 133-450 [facility] HospitalPnmvuhhUBCMWTPWXT2471-92-18 14:26:00 Test Item Value Reference Range Interpretation Comments MCHC (test code = MCHC) 35.0 32.0-36.0 [facility] HospitalQimegkcBNPBFPWSCS2367-33-97 14:26:00 Test Item Value Reference Range Interpretation Comments INR (test code = INR) 0.93 0.85-1.17 [facility] HospitalKzzbkweHRDXOTTGTA5973-99-93 14:26:00 Test Item Value Reference Range Interpretation [...] (test code = Calcium Lvl) 9.7 8.5-10.5 [facility] HospitalGpyemdyVTGJCLBZIE7431-63-45 14:26:00 Test Item Value Reference Range Interpretation Comments MCV (test code = MCV) 101.6 80.0-98.0 [facility] HospitalIaezpanRGDMBVRTWG9157-68-49 14:26:00 Test Item Value Reference Range Interpretation Comments MCH (test code = MCH) 35.5 pg 27.0-31.0 [facility] HospitalIdwjthlJJHQECSYGB9483-36-88 14:26:00 Test Item Value Reference Range Interpretation Comments Hgb (test code = Hgb) 13.3 12.0-16.0 [facility] HospitalLyedfgtXGVSLYYXMB3273-55-22 14:26:00 Test Item Value Reference Range Interpretation Comments Hct (test code = Hct) 37.9 36.0-48.0 [facility] HospitalTufrhnbBYLWSKYHXS6074-37-76 14:26:00 Test Item Value Reference Range Interpretation Comments RBC (test code = RBC) 3.73 4.20-5.40 [facility] HospitalXmuhzsfFQXCRGGOKQ1857-00-32 14:26:00 Test Item Value Reference Range Interpretation Comments WBC (test code = WBC) 6.1 3.7-10.4 [facility] HospitalGtbmakjDHUUHJGZLS3708-58-12 14:26:00 Test Item Value Reference Range Interpretation Comments MPV (test code = MPV) 8.0 7.4-10.4 [place] [address]-09-22 14:26:00 Test Item Value Reference Range Interpretation Comments RDW (test code = RDW) 17.2 11.5-14.5 [facility] HospitalSyuzscyLFWNMNWWQH6098-01-86 14:26:00 Test Item Value Reference Range Interpretation Comments Platelet (test code = Platelet) 223 133-450 [facility] HospitalBvslbsxXTCMQSHUXE6739-80-07 14:26:00 Test Item Value Reference Range Interpretation Comments MCHC (test code = MCHC) 35.0 32.0-36.0 [facility] HospitalUduukbuGQSHENKCJM9020-07-47 14:26:00 Test Item Value Reference Range Interpretation Comments INR (test code = INR) 0.93 0.85-1.17 [facility] HospitalWtbjthcKJLBOUJWRR0376-98-93 14:26:00 Test Item Value Reference Range Interpretation [...] (test code = Calcium Lvl) 9.7 8.5-10.5 [facility] HospitalElazjcrSRWOQPAUAB7580-54-03 14:26:00 Test Item Value Reference Range Interpretation Comments MCV (test code = MCV) 101.6 80.0-98.0 [facility] HospitalZsoenuuAXQZMFWLNK2502-28-80 14:26:00 Test Item Value Reference Range Interpretation Comments MCH (test code = MCH) 35.5 pg 27.0-31.0 [facility] HospitalIfaigkxAIQBNPMKEK2797-12-35 14:26:00 Test Item Value Reference Range Interpretation Comments Hgb (test code = Hgb) 13.3 12.0-16.0 [facility] HospitalHcgcyyoXTWQCZSAPN2970-97-88 14:26:00 Test Item Value Reference Range Interpretation Comments Hct (test code = Hct) 37.9 36.0-48.0 [facility] HospitalKfchirbXUVCUFKMWR2967-48-10 14:26:00 Test Item Value Reference Range Interpretation Comments RBC (test code = RBC) 3.73 4.20-5.40 [facility] HospitalSzgsbpaUITNWKPCTA1848-43-41 14:26:00 Test Item Value Reference Range Interpretation Comments WBC (test code = WBC) 6.1 3.7-10.4 [facility] HospitalUeppwwaUIYNNUCFAR7562-69-18 14:26:00 Test Item Value Reference Range Interpretation Comments MPV (test code = MPV) 8.0 7.4-10.4 [facility] HospitalQitxjklLQHEXKBNNV4970-29-50 14:26:00 Test Item Value Reference Range Interpretation Comments RDW (test code = RDW) 17.2 11.5-14.5 [facility] HospitalOgqdhioFVCBBUPEWL5562-28-55 14:26:00 Test Item Value Reference Range Interpretation Comments Platelet (test code = Platelet) 223 133-450 [facility] HospitalJaabrfvKQAOMBEDXO1750-52-30 14:26:00 Test Item Value Reference Range Interpretation Comments MCHC (test code = MCHC) 35.0 32.0-36.0 [facility] HospitalIudfcrnUGFOTLONJG0669-38-57 14:26:00 Test Item Value Reference Range Interpretation Comments INR (test code = INR) 0.93 0.85-1.17 [facility] HospitalVhszhgsZECQGIBEMU5379-87-76 14:26:00 Test Item Value Reference Range Interpretation [...] (test code = Calcium Lvl) 9.7 8.5-10.5 [facility] HospitalEavxbkbQMAQKDXWEC6428-72-64 14:26:00 Test Item Value Reference Range Interpretation Comments MCV (test code = MCV) 101.6 80.0-98.0 [facility] HospitalHiwdfzpLYCSZFEKRF0791-71-76 14:26:00 Test Item Value Reference Range Interpretation Comments MCH (test code = MCH) 35.5 pg 27.0-31.0 [facility] HospitalKpxfygoAOEXUXGMST2971-96-89 14:26:00 Test Item Value Reference Range Interpretation Comments Hgb (test code = Hgb) 13.3 12.0-16.0 [facility] HospitalWxqginxICGKBRPKCA1505-77-29 14:26:00 Test Item Value Reference Range Interpretation Comments Hct (test code = Hct) 37.9 36.0-48.0 [facility] HospitalGakccjpYZQGVJMTXP6020-37-86 14:26:00 Test Item Value Reference Range Interpretation Comments RBC (test code = RBC) 3.73 4.20-5.40 [facility] HospitalHvgwzyeBQKLXBVWWG4336-94-71 14:26:00 Test Item Value Reference Range Interpretation Comments WBC (test code = WBC) 6.1 3.7-10.4 [facility] HospitalEzljjskAHPWQVBKLC5855-98-25 14:26:00 Test Item Value Reference Range Interpretation Comments MPV (test code = MPV) 8.0 7.4-10.4 [facility] HospitalKwbgkbcCTAVBUTMZC2723-80-71 14:26:00 Test Item Value Reference Range Interpretation Comments RDW (test code = RDW) 17.2 11.5-14.5 [facility] HospitalVufvjpaFLKXHGPYKZ0306-90-92 14:26:00 Test Item Value Reference Range Interpretation Comments Platelet (test code = Platelet) 223 133-450 [facility] HospitalJhirofpAQLIDFMYHQ7400-56-77 14:26:00 Test Item Value Reference Range Interpretation Comments MCHC (test code = MCHC) 35.0 32.0-36.0 [facility] HospitalErxdavqGVFXBKWPDF2686-14-22 14:26:00 Test Item Value Reference Range Interpretation Comments INR (test code = INR) 0.93 0.85-1.17 [facility] HospitalUqbbqgkLJIHGXZEUL5064-50-33 14:26:00 Test Item Value Reference Range Interpretation [...] AGAP (test code = AGAP) 6.7 10.0-20.0 [place] 951564-09-22 14:26:00 Test Item Value Reference Range Interpretation [...] (test code = Calcium Lvl) 9.7 8.5-10.5 [facility] HospitalHjsieffNFOIXTOCUA8391-92-21 14:26:00 Test Item Value Reference Range Interpretation Comments MCV (test code = MCV) 101.6 80.0-98.0 [facility] HospitalKaipmnbWTQLUEVNAR0800-23-52 14:26:00 Test Item Value Reference Range Interpretation Comments MCH (test code = MCH) 35.5 pg 27.0-31.0 [facility] HospitalDcmlyzoIZTNFMDVQR7447-08-64 14:26:00 Test Item Value Reference Range Interpretation Comments Hgb (test code = Hgb) 13.3 12.0-16.0 [facility] HospitalFzjrzkfCHPEYNYUCZ8040-46-17 14:26:00 Test Item Value Reference Range Interpretation Comments Hct (test code = Hct) 37.9 36.0-48.0 [facility] HospitalNknrkxkVVFQBZIAZY8558-00-44 14:26:00 Test Item Value Reference Range Interpretation Comments RBC (test code = RBC) 3.73 4.20-5.40 [facility] HospitalSqenxbsGLPQOHCBCG1917-13-16 14:26:00 Test Item Value Reference Range Interpretation Comments WBC (test code = WBC) 6.1 3.7-10.4 [facility]SzsfyrmXBAVETCZJT8739-63-28 14:26:00 Test Item Value Reference Range Interpretation Comments MPV (test code = MPV) 8.0 7.4-10.4 [facility] HospitalOtwqtasGGBAZBARGR0913-21-33 14:26:00 Test Item Value Reference Range Interpretation Comments RDW (test code = RDW) 17.2 11.5-14.5 [facility] HospitalKzmcvxnSVFJDENAKA9026-99-82 14:26:00 Test Item Value Reference Range Interpretation Comments Platelet (test code = Platelet) 223 133-450 [facility] HospitalOacwltfZCNDYNLHUG0515-23-18 14:26:00 Test Item Value Reference Range Interpretation Comments MCHC (test code = MCHC) 35.0 32.0-36.0 [facility] HospitalXpqhdfvPOCSKUFYJH4903-54-65 14:26:00 Test Item Value Reference Range Interpretation Comments INR (test code = INR) 0.93 0.85-1.17 [facility] HospitalTobsspvSMRRHZACCF3057-50-31 14:26:00 Test Item Value Reference Range Interpretation [...] (test code = Calcium Lvl) 9.7 8.5-10.5 [facility] HospitalHkvchqwZVSLEEVWCP6864-04-92 14:26:00 Test Item Value Reference Range Interpretation Comments MCV (test code = MCV) 101.6 80.0-98.0 [facility] HospitalRwjbkcnUQDQUOPLNP6983-73-47 14:26:00 Test Item Value Reference Range Interpretation Comments MCH (test code = MCH) 35.5 pg 27.0-31.0 [facility] HospitalLfqimozQZLSNIPVFR6553-68-98 14:26:00 Test Item Value Reference Range Interpretation Comments Hgb (test code = Hgb) 13.3 12.0-16.0 [facility] HospitalMunagggFFCFTVEAWT1578-74-20 14:26:00 Test Item Value Reference Range Interpretation Comments Hct (test code = Hct) 37.9 36.0-48.0 [facility] HospitalXtgwxruUDRBDBMYDL7397-46-64 14:26:00 Test Item Value Reference Range Interpretation Comments RBC (test code = RBC) 3.73 4.20-5.40 [facility] HospitalVwppaybNBAXGVOYPY5299-56-22 14:26:00 Test Item Value Reference Range Interpretation Comments WBC (test code = WBC) 6.1 3.7-10.4 [facility] HospitalTztdwqiAJTGEWZDIY5447-64-83 14:26:00 Test Item Value Reference Range Interpretation Comments MPV (test code = MPV) 8.0 7.4-10.4 [facility] HospitalMbqulnvIINIPLAPFY9427-02-45 14:26:00 Test Item Value Reference Range Interpretation Comments RDW (test code = RDW) 17.2 11.5-14.5 [facility] HospitalIwjurzpOQIPRWQRST4522-23-77 14:26:00 Test Item Value Reference Range Interpretation Comments Platelet (test code = Platelet) 223 133-450 [facility] HospitalUeyokqhJKOOAQVKXO6323-08-80 14:26:00 Test Item Value Reference Range Interpretation Comments MCHC (test code = MCHC) 35.0 32.0-36.0 [facility] HospitalVpwtdfdXWHNXUFWXZ8532-38-29 14:26:00 Test Item Value Reference Range Interpretation Comments INR (test code = INR) 0.93 0.85-1.17 [facility] HospitalRbqlsupSKMPRQLVCW5538-23-59 14:26:00 Test Item Value Reference Range Interpretation [...] (test code = Calcium Lvl) 9.7 8.5-10.5 [facility] HospitalVftfdsrLVBFUGLXXE0230-80-40 14:26:00 Test Item Value Reference Range Interpretation Comments MCV (test code = MCV) 101.6 80.0-98.0 [facility] HospitalTibynpyVIUDVBIVRY0614-71-40 14:26:00 Test Item Value Reference Range Interpretation Comments MCH (test code = MCH) 35.5 pg 27.0-31.0 [facility] HospitalChvxcviZEKSDIEOHY8878-85-58 14:26:00 Test Item Value Reference Range Interpretation Comments Hgb (test code = Hgb) 13.3 12.0-16.0 [facility] HospitalAlxunltWGNRQRKEKV9871-16-54 14:26:00 Test Item Value Reference Range Interpretation Comments Hct (test code = Hct) 37.9 36.0-48.0 [facility] HospitalNwamsrxAZEAPAJLOH6196-71-55 14:26:00 Test Item Value Reference Range Interpretation Comments RBC (test code = RBC) 3.73 4.20-5.40 [facility] HospitalMaafvrlQGZMQRHLWF0191-06-05 14:26:00 Test Item Value Reference Range Interpretation Comments WBC (test code = WBC) 6.1 3.7-10.4 [facility] HospitalPyglfcmILFKIKICXV2808-20-90 14:26:00 Test Item Value Reference Range Interpretation Comments MPV (test code = MPV) 8.0 7.4-10.4 [facility] HospitalPfkiqzpYWFITTNNBX7917-65-24 14:26:00 Test Item Value Reference Range Interpretation Comments RDW (test code = RDW) 17.2 11.5-14.5 [facility] HospitalFlxjwniGDSMWLYBVP4753-56-72 14:26:00 Test Item Value Reference Range Interpretation Comments Platelet (test code = Platelet) 223 133-450 [facility]SpqsvqiJIHLLASORX3187-81-94 14:26:00 Test Item Value Reference Range Interpretation Comments MCHC (test code = MCHC) 35.0 32.0-36.0 [facility] HospitalZtgafouAOWYHQUUDO1508-58-45 14:26:00 Test Item Value Reference Range Interpretation Comments INR (test code = INR) 0.93 0.85-1.17 [facility] HospitalKxqwjcgWZIFQRHJBG1005-70-05 14:26:00 Test Item Value Reference Range Interpretation [...] (test code = Calcium Lvl) 9.7 8.5-10.5 [facility] HospitalPtnauqjXGOENPPMJQ6820-57-79 14:26:00 Test Item Value Reference Range Interpretation Comments MCV (test code = MCV) 101.6 80.0-98.0 [facility] HospitalQzglojySEHTRKRONI2403-81-46 14:26:00 Test Item Value Reference Range Interpretation Comments MCH (test code = MCH) 35.5 pg 27.0-31.0 [facility] HospitalFsshltzTVXNTLYLTN0049-74-30 14:26:00 Test Item Value Reference Range Interpretation Comments Hgb (test code = Hgb) 13.3 12.0-16.0 [facility] HospitalEltjdxbRTZGBGLCAM1885-82-64 14:26:00 Test Item Value Reference Range Interpretation Comments Hct (test code = Hct) 37.9 36.0-48.0 [facility] HospitalByndumnYDAKNNBUHB7203-14-38 14:26:00 Test Item Value Reference Range Interpretation Comments RBC (test code = RBC) 3.73 4.20-5.40 [facility] HospitalUdvcjdaLIEDBYGRTJ7922-22-66 14:26:00 Test Item Value Reference Range Interpretation Comments WBC (test code = WBC) 6.1 3.7-10.4 [facility] HospitalSqzemulOYMNJVGFHY4956-14-11 14:26:00 Test Item Value Reference Range Interpretation Comments MPV (test code = MPV) 8.0 7.4-10.4 [facility] HospitalBozkodnIXUAHHZYOI9474-66-66 14:26:00 Test Item Value Reference Range Interpretation Comments RDW (test code = RDW) 17.2 11.5-14.5 [facility] HospitalMrkbzmwHLMIMNMYFX8763-63-52 14:26:00 Test Item Value Reference Range Interpretation Comments Platelet (test code = Platelet) 223 133-450 [facility] HospitalCthewznYQIRGBJJJS2845-28-74 14:26:00 Test Item Value Reference Range Interpretation Comments MCHC (test code = MCHC) 35.0 32.0-36.0 [facility] HospitalZynryleESNBWTOLPO7400-54-40 14:26:00 Test Item Value Reference Range Interpretation Comments INR (test code = INR) 0.93 0.85-1.17 [facility] HospitalQrdvclpUCRNZVQVZB2881-11-47 14:26:00 Test Item Value Reference Range Interpretation [...] 136 135-145 [facility]2014-05-07 [...] (test code = Sodium Lvl) 142 135-145 [place] 951564-05-07 09:42:00 Test Item Value Reference Range Interpretation [...] AGAP (test code = AGAP) 10.8 10.0-20.0 [facility] HospitalNjtrjwfZVMUODFJML2126-53-39 09:42:00 Test Item Value Reference Range Interpretation Comments WBC (test code = WBC) 4.4 3.7-10.4 [facility] HospitalRmwaajuTZWZNCVCAI9004-38-07 09:42:00 Test Item Value Reference Range Interpretation Comments RBC (test code = RBC) 3.80 4.20-5.40 [facility] HospitalJuwuvlnCOTVZLIINK0395-12-83 09:42:00 Test Item Value Reference Range Interpretation Comments MCH (test code = MCH) 31.1 pg 27.0-31.0 [facility] HospitalVcusilmKSGFMOCWOM3660-35-76 09:42:00 Test Item Value Reference Range Interpretation Comments Hgb (test code = Hgb) 11.8 12.0-16.0 [facility] HospitalKoutyflXWENKOQPPU8668-69-91 09:42:00 Test Item Value Reference Range Interpretation Comments Hct (test code = Hct) 34.5 36.0-48.0 [facility] HospitalIeiukghDSZGDCRADE9248-38-22 09:42:00 Test Item Value Reference Range Interpretation Comments MCV (test code = MCV) 90.6 81.0-99.0 [facility]JyvaileVARSTBOHPW2634-31-74 09:42:00 Test Item Value Reference Range Interpretation Comments RDW (test code = RDW) 16.3 11.5-14.5 [facility] HospitalGqthrexBATBFBKBEQ9169-40-52 09:42:00 Test Item Value Reference Range Interpretation Comments MCHC (test code = MCHC) 34.3 32.0-36.0 [facility] HospitalEphiealBFBDCZKOMI6558-81-84 09:42:00 Test Item Value Reference Range Interpretation Comments Platelet (test code = Platelet) 167 133-450 [facility] HospitalAtfstcrWIZATDZGKC7024-63-21 09:42:00 Test Item Value Reference Range Interpretation Comments MPV (test code = MPV) 7.9 7.4-10.4 [facility] HospitalUiqwjngSWRJWELYIK5646-03-63 09:42:00 Test Item Value Reference Range Interpretation Comments Eosinophils (test code = 1.6 See_Comment [A utomated message] The Eosinophils) system which ge nerated this result tra nsmitted reference range : <=4.0. The reference r j[place] was not used to int erpret this result as normal/abnormal . [facility] HospitalBvjpsvjRBZCFJZQNA4830-53-06 09:42:00 Test Item Value Reference Range Interpretation Comments Basophils (test code = 0.2 See_Comment [Aut omated message] The Basophils) system which ge nerated this result tra nsmitted reference range : <=1.0. The reference r j[place] was not used to int erpret this result as normal/abnormal . [facility] HospitalNrkzxnaEGXYVDXBBP8613-49-61 09:42:00 Test Item Value Reference Range Interpretation Comments Segs-Bands # (test code = Segs-Bands #) 2.6 1.5-8.1 [facility] HospitalBlehzygPJTZZXEHVI4686-98-39 09:42:00 Test Item Value Reference Range Interpretation Comments Monocytes (test code = Monocytes) 7.4 2.0-12.0 [facility] HospitalZggytjwRKGVOPVSVP7680-62-46 09:42:00 Test Item Value Reference Range Interpretation Comments Lymphocytes # (test code = Lymphocytes 1.3 1.0-5.5 #) [facility] HospitalJugkuuyFIJDJSGMLF5334-37-41 09:42:00 Test Item Value Reference Range Interpretation Comments Monocytes # (test code 0.3 See_Comment [Aut omated message] The = Monocytes #) system which generated this result tra nsmitted reference range : <=0.8. The reference r jama[place] was not used to int erpret this result as normal/abnormal . [facility] HospitalRqsisbvDRGPERLHXW3051-07-58 09:42:00 Test Item Value Reference Range Interpretation Comments Eosinophils # (test code 0.1 See_Comment [A utomated message] The = Eosinophils #) system whic h generated this result tra nsmitted reference range : <=0.5. The reference r jamaica was not used to int erpret this result as normal/abnormal . [facility] HospitalZjemedhRVMKOUKVPO6745-03-61 09:42:00 Test Item Value Reference Range Interpretation Comments Basophils # (test code 0.0 See_Comment [Aut omated message] The = Basophils #) system which generated this result tra nsmitted reference range : <=0.2. The reference r jamaica was not used to int erpret this result as normal/abnormal . [facility] HospitalEzzymzkVQZQWXWSBT7533-67-82 09:42:00 Test Item Value Reference Range Interpretation Comments Lymphocytes (test code = Lymphocytes) 30.7 20.0-40.0 [facility] HospitalMmmutixYHCMTOUVUH1815-53-39 09:42:00 Test Item Value Reference Range Interpretation Comments Segs (test code = Segs) 60.1 45.0-75.0 [facility]2014-05-07 09:42:00 Test Item Value Reference Range Interpretation Comments Magnesium Lvl (test code = Magnesium 2.0 1.8-2.4 Lvl) [facility]2014-05-07 09:42:00 Test Item Value Reference Range Interpretation Comments eGFR (test code = eGFR) 113 [place] 951564-05-07 09:42:00 Test Item Value Reference Range Interpretation [...] (test code = Sodium Lvl) 142 135-145 [place] 951564-05-07 09:42:00 Test Item Value Reference Range Interpretation Comments Calcium Lvl (test code = Calcium Lvl) 8.7 8.5-10.5 [place] 951564-05-07 09:42:00 Test Item Value Reference Range Interpretation Comments Chloride Lvl (test code = Chloride Lvl) 105 95-109 [facility]2014-05-07 09:42:00 Test Item Value Reference Range Interpretation Comments CO2 (test code = CO2) 30 24-32 [facility]2014-05-07 09:42:00 Test Item Value Reference Range Interpretation Comments AGAP (test code = AGAP) 10.8 10.0-20.0 [facility] HospitalSclijtqYRUEOTZVCV8983-70-37 09:42:00 Test Item Value Reference Range Interpretation Comments WBC (test code = WBC) 4.4 3.7-10.4 [facility] HospitalNekrulqYMYJOZMHUE8224-62-53 09:42:00 Test Item Value Reference Range Interpretation Comments RBC (test code = RBC) 3.80 4.20-5.40 [place] 054344-05-07 09:42:00 Test Item Value Reference Range Interpretation Comments MCH (test code = MCH) 31.1 pg 27.0-31.0 [facility] HospitalOiasaowZUNKSRSYDZ3137-79-83 09:42:00 Test Item Value Reference Range Interpretation Comments Hgb (test code = Hgb) 11.8 12.0-16.0 [facility] HospitalDvbrjzvIFKHRLXCLX3493-83-74 09:42:00 Test Item Value Reference Range Interpretation Comments Hct (test code = Hct) 34.5 36.0-48.0 [facility] HospitalTkalljcZTMSVWBADX7144-01-74 09:42:00 Test Item Value Reference Range Interpretation Comments MCV (test code = MCV) 90.6 81.0-99.0 [facility] HospitalVumqopeLRHWHVDZGU1149-52-08 09:42:00 Test Item Value Reference Range Interpretation Comments RDW (test code = RDW) 16.3 11.5-14.5 [facility] HospitalKdhcydyLSEAMZPCNF3530-18-29 09:42:00 Test Item Value Reference Range Interpretation Comments MCHC (test code = MCHC) 34.3 32.0-36.0 [facility] HospitalZzdpvmvSUJVNHLOUT7549-74-99 09:42:00 Test Item Value Reference Range Interpretation Comments Platelet (test code = Platelet) 167 133-450 [facility] HospitalHpvhworGTJIYPNLXU7566-27-05 09:42:00 Test Item Value Reference Range Interpretation Comments MPV (test code = MPV) 7.9 7.4-10.4 [facility] HospitalHvxssnrZBQHVWXQIZ1044-19-20 09:42:00 Test Item Value Reference Range Interpretation Comments Eosinophils (test code = 1.6 See_Comment [A utomated message] The Eosinophils) system which ge nerated this result tra nsmitted reference range : <=4.0. The reference r jama[place] was not used to int erpret this result as normal/abnormal . [facility] HospitalKgxcpopRHTKUHNCJB4069-71-21 09:42:00 Test Item Value Reference Range Interpretation Comments Basophils (test code = 0.2 See_Comment [Aut omated message] The Basophils) system which ge nerated this result tra nsmitted reference range : <=1.0. The reference r jamaica was not used to int erpret this result as normal/abnormal . [facility] HospitalInlaxdoMALMCDHUIP1441-60-61 09:42:00 Test Item Value Reference Range Interpretation Comments Segs-Bands # (test code = Segs-Bands #) 2.6 1.5-8.1 [facility] HospitalQkyywgmECWKXARGDS2721-18-56 09:42:00 Test Item Value Reference Range Interpretation Comments Monocytes (test code = Monocytes) 7.4 2.0-12.0 [facility] HospitalQuntlgcRISQPLVVSQ3007-05-72 09:42:00 Test Item Value Reference Range Interpretation Comments Lymphocytes # (test code = Lymphocytes 1.3 1.0-5.5 #) [facility] HospitalMivkvesHSWNILOWNS8781-95-58 09:42:00 Test Item Value Reference Range Interpretation Comments Monocytes # (test code 0.3 See_Comment [Aut omated message] The = Monocytes #) system which generated this result tra nsmitted reference range : <=0.8. The reference r jamaica was not used to int erpret this result as normal/abnormal . [facility] HospitalCltlxvaMHXTAZCYEH9173-59-19 09:42:00 Test Item Value Reference Range Interpretation Comments Eosinophils # (test code 0.1 See_Comment [A utomated message] The = Eosinophils #) system whic h generated this result tra nsmitted reference range : <=0.5. The reference r jamaica was not used to int erpret this result as normal/abnormal . [facility] HospitalZjqlvzcYDYHPKERBJ6477-24-89 09:42:00 Test Item Value Reference Range Interpretation Comments Basophils # (test code 0.0 See_Comment [Aut omated message] The = Basophils #) system which generated this result tra nsmitted reference range : <=0.2. The reference r jaamica was not used to int erpret this result as normal/abnormal . [facility] HospitalBdqfplcQOVYRFEXOA4738-97-77 09:42:00 Test Item Value Reference Range Interpretation Comments Lymphocytes (test code = Lymphocytes) 30.7 20.0-40.0 [facility] HospitalTsmmefuPYHIDLVURO8216-47-56 09:42:00 Test Item Value Reference Range Interpretation [...] AGAP (test code = AGAP) 10.8 10.0-20.0 [facility] HospitalWcisxpuNWJSFYPUBU2997-19-84 09:42:00 Test Item Value Reference Range Interpretation Comments WBC (test code = WBC) 4.4 3.7-10.4 [facility] HospitalTnwdjycHNVWZMFJWD6012-11-62 09:42:00 Test Item Value Reference Range Interpretation Comments RBC (test code = RBC) 3.80 4.20-5.40 [facility] HospitalMdbjjhsZUIJXSZHZP3149-29-37 09:42:00 Test Item Value Reference Range Interpretation Comments MCH (test code = MCH) 31.1 pg 27.0-31.0 [facility]VjttlfcDQGNOMHPAO4688-96-20 09:42:00 Test Item Value Reference Range Interpretation Comments Hgb (test code = Hgb) 11.8 12.0-16.0 [facility]XbegncgMHAEFAYQWM2819-77-76 09:42:00 Test Item Value Reference Range Interpretation Comments Hct (test code = Hct) 34.5 36.0-48.0 [facility] HospitalOqonwdxPGVEUTPZYL1896-76-85 09:42:00 Test Item Value Reference Range Interpretation Comments MCV (test code = MCV) 90.6 81.0-99.0 [facility]QmtrqrwTRZNVKIHBL4446-40-05 09:42:00 Test Item Value Reference Range Interpretation Comments RDW (test code = RDW) 16.3 11.5-14.5 [facility] HospitalMgcwzwwDNTKWLNHVF0987-32-30 09:42:00 Test Item Value Reference Range Interpretation Comments MCHC (test code = MCHC) 34.3 32.0-36.0 [facility] HospitalSahxipyTAHHVBYXCO7556-05-85 09:42:00 Test Item Value Reference Range Interpretation Comments Platelet (test code = Platelet) 167 133-450 [facility] HospitalLsnucpbORRHYTSLVA1243-83-93 09:42:00 Test Item Value Reference Range Interpretation Comments MPV (test code = MPV) 7.9 7.4-10.4 [facility] HospitalIfmcifkJGKXSYESSG5640-90-63 09:42:00 Test Item Value Reference Range Interpretation Comments Eosinophils (test code = 1.6 See_Comment [A utomated message] The Eosinophils) system which ge nerated this result tra nsmitted reference range : <=4.0. The reference r jamaica was not used to int erpret this result as normal/abnormal . [facility] HospitalFpfnohuEXKLWKWXNH0641-99-81 09:42:00 Test Item Value Reference Range Interpretation Comments Basophils (test code = 0.2 See_Comment [Aut omated message] The Basophils) system which ge nerated this result tra nsmitted reference range : <=1.0. The reference r jamaica was not used to int erpret this result as normal/abnormal . [facility] HospitalNdxhsvyWMHPYJYEOU6981-54-07 09:42:00 Test Item Value Reference Range Interpretation Comments Segs-Bands # (test code = Segs-Bands #) 2.6 1.5-8.1 [facility] HospitalNdqeutzEAOUPXJXGR5952-32-02 09:42:00 Test Item Value Reference Range Interpretation Comments Monocytes (test code = Monocytes) 7.4 2.0-12.0 [facility] HospitalMihaczsBWKASLKWFC6143-20-08 09:42:00 Test Item Value Reference Range Interpretation Comments Lymphocytes # (test code = Lymphocytes 1.3 1.0-5.5 #) [facility] HospitalBrxjghzRJYPXVISQP4928-60-50 09:42:00 Test Item Value Reference Range Interpretation Comments Monocytes # (test code 0.3 See_Comment [Aut omated message] The = Monocytes #) system which generated this result tra nsmitted reference range : <=0.8. The reference r jamaica was not used to int erpret this result as normal/abnormal . [facility] HospitalCrsqyhcILMSSIYQRQ9813-56-04 09:42:00 Test Item Value Reference Range Interpretation Comments Eosinophils # (test code 0.1 See_Comment [A utomated message] The = Eosinophils #) system whic h generated this result tra nsmitted reference range : <=0.5. The reference r jamaica was not used to int erpret this result as normal/abnormal . [facility] HospitalPqlfgllULYPDJPGXH8246-69-06 09:42:00 Test Item Value Reference Range Interpretation Comments Basophils # (test code 0.0 See_Comment [Aut omated message] The = Basophils #) system which generated this result tra nsmitted reference range : <=0.2. The reference r jamaica was not used to int erpret this result as normal/abnormal . [facility] HospitalFisodnuXRKUQBCKBW5379-72-16 09:42:00 Test Item Value Reference Range Interpretation Comments Lymphocytes (test code = Lymphocytes) 30.7 20.0-40.0 [facility] HospitalTwrgkqnBHLARJRXJA8042-06-77 09:42:00 Test Item Value Reference Range Interpretation Comments Segs (test code = Segs) 60.1 45.0-75.0 [place] 951564-05-07 09:42:00 Test Item Value Reference Range Interpretation Comments Magnesium Lvl (test code = Magnesium 2.0 1.8-2.4 Lvl) [facility]2014-05-07 09:42:00 Test Item Value Reference Range Interpretation Comments eGFR (test code = eGFR) 113 [facility]2014-05-07 09:42:00 Test Item Value Reference Range Interpretation Comments BUN (test code = BUN) 4 7-22 [place] 951564-05-07 09:42:00 Test Item Value Reference Range Interpretation [...] AGAP (test code = AGAP) 10.8 10.0-20.0 [facility] HospitalScleeapQQCWLGFLGU2795-92-54 09:42:00 Test Item Value Reference Range Interpretation Comments WBC (test code = WBC) 4.4 3.7-10.4 [facility] HospitalEhzyemjKMCXWFOJMB3913-48-04 09:42:00 Test Item Value Reference Range Interpretation Comments RBC (test code = RBC) 3.80 4.20-5.40 [facility] HospitalMqwqjhxCHYVXOFDYK8049-97-90 09:42:00 Test Item Value Reference Range Interpretation Comments MCH (test code = MCH) 31.1 pg 27.0-31.0 [facility] HospitalCqfqyquVANJITMCBL0313-49-29 09:42:00 Test Item Value Reference Range Interpretation Comments Hgb (test code = Hgb) 11.8 12.0-16.0 [facility] HospitalHarwomrYPPBJUGCKD1664-17-74 09:42:00 Test Item Value Reference Range Interpretation Comments Hct (test code = Hct) 34.5 36.0-48.0 [facility] HospitalRdvjqzpUAGXIOEJRU2265-18-62 09:42:00 Test Item Value Reference Range Interpretation Comments MCV (test code = MCV) 90.6 81.0-99.0 [facility] HospitalBhvorebSNLSBIHLPO1964-06-82 09:42:00 Test Item Value Reference Range Interpretation Comments RDW (test code = RDW) 16.3 11.5-14.5 [facility] HospitalYehqzkoLWNUHZVCKA4986-99-63 09:42:00 Test Item Value Reference Range Interpretation Comments MCHC (test code = MCHC) 34.3 32.0-36.0 [facility] HospitalWmqrjnzARQQAHJDMQ8676-22-52 09:42:00 Test Item Value Reference Range Interpretation Comments Platelet (test code = Platelet) 167 133-450 [facility] HospitalBjbsznjLUZKMPPWOG0260-54-23 09:42:00 Test Item Value Reference Range Interpretation Comments MPV (test code = MPV) 7.9 7.4-10.4 [facility] HospitalNdfttjmXEVOEEVZWI7421-40-57 09:42:00 Test Item Value Reference Range Interpretation Comments Eosinophils (test code = 1.6 See_Comment [A utomated message] The Eosinophils) system which ge nerated this result tra nsmitted reference range : <=4.0. The reference r jamaica was not used to int erpret this result as normal/abnormal . [facility] HospitalRpuxavpOPWIQDFYRM1292-91-25 09:42:00 Test Item Value Reference Range Interpretation Comments Basophils (test code = 0.2 See_Comment [Aut omated message] The Basophils) system which ge nerated this result tra nsmitted reference range : <=1.0. The reference r jamaica was not used to int erpret this result as normal/abnormal . [facility] HospitalSywfgknNNFEASDOFI4801-38-25 09:42:00 Test Item Value Reference Range Interpretation Comments Segs-Bands # (test code = Segs-Bands #) 2.6 1.5-8.1 [facility] HospitalIckicitHIVJMNQUEP2036-45-20 09:42:00 Test Item Value Reference Range Interpretation Comments Monocytes (test code = Monocytes) 7.4 2.0-12.0 [facility] HospitalQbvkjbmUTWFJRKFYG7555-83-76 09:42:00 Test Item Value Reference Range Interpretation Comments Lymphocytes # (test code = Lymphocytes 1.3 1.0-5.5 #) [facility] HospitalXdnuyzeURFLNANFMO2167-77-08 09:42:00 Test Item Value Reference Range Interpretation Comments Monocytes # (test code 0.3 See_Comment [Aut omated message] The = Monocytes #) system which generated this result tra nsmitted reference range : <=0.8. The reference r jamaica was not used to int erpret this result as normal/abnormal . [facility] HospitalHjywhyxIKXKZXODQS7209-68-42 09:42:00 Test Item Value Reference Range Interpretation Comments Eosinophils # (test code 0.1 See_Comment [A utomated message] The = Eosinophils #) system wh h generated this result tra nsmitted reference range : <=0.5. The reference r jamaica was not used to int erpret this result as normal/abnormal . [facility] HospitalGohbuuiEOVRCFGDDG3184-27-95 09:42:00 Test Item Value Reference Range Interpretation Comments Basophils # (test code 0.0 See_Comment [Aut omated message] The = Basophils #) system which generated this result tra nsmitted reference range : <=0.2. The reference r jamaica was not used to int erpret this result as normal/abnormal . [facility] HospitalXmdidlvHSJXWRVJMR5059-88-48 09:42:00 Test Item Value Reference Range Interpretation Comments Lymphocytes (test code = Lymphocytes) 30.7 20.0-40.0 [place] 054344-05-07 09:42:00 Test Item Value Reference Range Interpretation [...] BUN (test code = BUN) 4 7-22 [place] 951564-05-07 09:42:00 Test Item Value Reference Range Interpretation [...] AGAP (test code = AGAP) 10.8 10.0-20.0 [facility] HospitalEpxkafdEDYIVTOROT2733-62-96 09:42:00 Test Item Value Reference Range Interpretation Comments WBC (test code = WBC) 4.4 3.7-10.4 [facility] HospitalAcupjoeYEAXMAWZEI1938-21-27 09:42:00 Test Item Value Reference Range Interpretation Comments RBC (test code = RBC) 3.80 4.20-5.40 [facility] HospitalIlmkrgwDEESUXKYHL2408-85-65 09:42:00 Test Item Value Reference Range Interpretation Comments MCH (test code = MCH) 31.1 pg 27.0-31.0 [facility] HospitalCpaeiusRWMQBFWGEC2521-47-06 09:42:00 Test Item Value Reference Range Interpretation Comments Hgb (test code = Hgb) 11.8 12.0-16.0 [facility] HospitalRvmfqvpOTUYHZOBAG1476-05-90 09:42:00 Test Item Value Reference Range Interpretation Comments Hct (test code = Hct) 34.5 36.0-48.0 [facility] HospitalYzwxgixWUSGWEUZKQ8056-31-13 09:42:00 Test Item Value Reference Range Interpretation Comments MCV (test code = MCV) 90.6 81.0-99.0 [facility] HospitalKovoygcBDDGTRTALK0719-81-15 09:42:00 Test Item Value Reference Range Interpretation Comments RDW (test code = RDW) 16.3 11.5-14.5 [facility] HospitalYvheoqoEAGPGKQOGG7430-17-63 09:42:00 Test Item Value Reference Range Interpretation Comments MCHC (test code = MCHC) 34.3 32.0-36.0 [facility] HospitalFavwxdmNYOFUYNMJR9800-93-25 09:42:00 Test Item Value Reference Range Interpretation Comments Platelet (test code = Platelet) 167 133-450 [facility] HospitalIfjmbogMZWNYZGYMV3402-65-52 09:42:00 Test Item Value Reference Range Interpretation Comments MPV (test code = MPV) 7.9 7.4-10.4 [facility] HospitalWqkgwzfRHRAMFTMBO1002-99-21 09:42:00 Test Item Value Reference Range Interpretation Comments Eosinophils (test code = 1.6 See_Comment [A utomated message] The Eosinophils) system which ge nerated this result tra nsmitted reference range : <=4.0. The reference r jamaica was not used to int erpret this result as normal/abnormal . [facility] HospitalNiprwkmXVOOFMWYCC8796-74-44 09:42:00 Test Item Value Reference Range Interpretation Comments Basophils (test code = 0.2 See_Comment [Aut omated message] The Basophils) system which ge nerated this result tra nsmitted reference range : <=1.0. The reference r jamaica was not used to int erpret this result as normal/abnormal . [facility] HospitalGywefwiYJNBTBSWZZ2784-11-49 09:42:00 Test Item Value Reference Range Interpretation Comments Segs-Bands # (test code = Segs-Bands #) 2.6 1.5-8.1 [facility] HospitalAuupiyrMTOODOYGCY4855-76-71 09:42:00 Test Item Value Reference Range Interpretation Comments Monocytes (test code = Monocytes) 7.4 2.0-12.0 [facility] HospitalLgxveqlKJZQYINJPR8985-70-53 09:42:00 Test Item Value Reference Range Interpretation Comments Lymphocytes # (test code = Lymphocytes 1.3 1.0-5.5 #) [facility] HospitalKuvxkdrFNTBINCOKO7273-13-71 09:42:00 Test Item Value Reference Range Interpretation Comments Monocytes # (test code 0.3 See_Comment [Aut omated message] The = Monocytes #) system which generated this result tra nsmitted reference range : <=0.8. The reference r jamaica was not used to int erpret this result as normal/abnormal . [facility] HospitalRsqmtouXPCHZTKRVI5044-49-83 09:42:00 Test Item Value Reference Range Interpretation Comments Eosinophils # (test code 0.1 See_Comment [A utomated message] The = Eosinophils #) system whic h generated this result tra nsmitted reference range : <=0.5. The reference r jamaica was not used to int erpret this result as normal/abnormal . [facility] HospitalNflvynrIYQRYDMLDN1843-33-35 09:42:00 Test Item Value Reference Range Interpretation Comments Basophils # (test code 0.0 See_Comment [Aut omated message] The = Basophils #) system which generated this result tra nsmitted reference range : <=0.2. The reference r jamaica was not used to int erpret this result as normal/abnormal . [facility] HospitalTxneoliQXSRKEAQTS7725-07-92 09:42:00 Test Item Value Reference Range Interpretation Comments Lymphocytes (test code = Lymphocytes) 30.7 20.0-40.0 [facility] HospitalIwlknqiWODLSPJAGE7153-00-50 09:42:00 Test Item Value Reference Range Interpretation [...] AGAP (test code = AGAP) 10.8 10.0-20.0 [facility] HospitalLaekuovJPUUUPZNVC2839-01-55 09:42:00 Test Item Value Reference Range Interpretation Comments WBC (test code = WBC) 4.4 3.7-10.4 [facility] HospitalIkkaxpiVLSUKFSQFA6820-56-67 09:42:00 Test Item Value Reference Range Interpretation Comments RBC (test code = RBC) 3.80 4.20-5.40 [facility] HospitalErpvhbwSCQTHJKOVK7258-61-81 09:42:00 Test Item Value Reference Range Interpretation Comments MCH (test code = MCH) 31.1 pg 27.0-31.0 [facility] HospitalWncubvtNHYTWURGEC5434-14-80 09:42:00 Test Item Value Reference Range Interpretation Comments Hgb (test code = Hgb) 11.8 12.0-16.0 [facility] HospitalPaehgnoRETFOLUMPC5340-49-67 09:42:00 Test Item Value Reference Range Interpretation Comments Hct (test code = Hct) 34.5 36.0-48.0 [facility] HospitalErwbvkqSCRPSYNATN7485-86-99 09:42:00 Test Item Value Reference Range Interpretation Comments MCV (test code = MCV) 90.6 81.0-99.0 [facility] HospitalKoxnlmqEQBYQUUTBO5752-99-31 09:42:00 Test Item Value Reference Range Interpretation Comments RDW (test code = RDW) 16.3 11.5-14.5 [facility] HospitalIeqpowqHSDKEZTZSI1445-29-96 09:42:00 Test Item Value Reference Range Interpretation Comments MCHC (test code = MCHC) 34.3 32.0-36.0 [facility] HospitalFlayaugPEKCVQOOWF5882-44-09 09:42:00 Test Item Value Reference Range Interpretation Comments Platelet (test code = Platelet) 167 133-450 [facility]JsrsdqnROVXAKFRWY4165-59-22 09:42:00 Test Item Value Reference Range Interpretation Comments MPV (test code = MPV) 7.9 7.4-10.4 [facility] HospitalPwjmrjtYVGKDTPZJF6492-36-59 09:42:00 Test Item Value Reference Range Interpretation Comments Eosinophils (test code = 1.6 See_Comment [A utomated message] The Eosinophils) system which ge nerated this result tra nsmitted reference range : <=4.0. The reference r jamaica was not used to int erpret this result as normal/abnormal . [facility] HospitalLhxkfryYNKNWBHXOE7457-65-60 09:42:00 Test Item Value Reference Range Interpretation Comments Basophils (test code = 0.2 See_Comment [Aut omated message] The Basophils) system which ge nerated this result tra nsmitted reference range : <=1.0. The reference r jamaica was not used to int erpret this result as normal/abnormal . [facility] HospitalUuuybdwDMTLCRCXEY7249-78-32 09:42:00 Test Item Value Reference Range Interpretation Comments Segs-Bands # (test code = Segs-Bands #) 2.6 1.5-8.1 [facility] HospitalDzlliteSBCWFVXTET1203-08-60 09:42:00 Test Item Value Reference Range Interpretation Comments Monocytes (test code = Monocytes) 7.4 2.0-12.0 [facility] HospitalIqbjrxeAZMCRQJKLM0382-95-62 09:42:00 Test Item Value Reference Range Interpretation Comments Lymphocytes # (test code = Lymphocytes 1.3 1.0-5.5 #) [place] [address]-05-07 09:42:00 Test Item Value Reference Range Interpretation Comments Monocytes # (test code 0.3 See_Comment [Aut omated message] The = Monocytes #) system which generated this result tra nsmitted reference range : <=0.8. The reference r jamaica was not used to int erpret this result as normal/abnormal . [facility] HospitalNfclydfXICNJOUHXQ6081-05-88 09:42:00 Test Item Value Reference Range Interpretation Comments Eosinophils # (test code 0.1 See_Comment [A utomated message] The = Eosinophils #) system whic h generated this result tra nsmitted reference range : <=0.5. The reference r jamaica was not used to int erpret this result as normal/abnormal . [facility] HospitalZvkcsbtEZBCMKYGXR9622-30-58 09:42:00 Test Item Value Reference Range Interpretation Comments Basophils # (test code 0.0 See_Comment [Aut omated message] The = Basophils #) system which generated this result tra nsmitted reference range : <=0.2. The reference r jamaica was not used to int erpret this result as normal/abnormal . [facility] HospitalZgvcfwqLNZZTKPPQD3652-97-54 09:42:00 Test Item Value Reference Range Interpretation Comments Lymphocytes (test code = Lymphocytes) 30.7 20.0-40.0 [facility] HospitalIoyrhidPWWVLANRDK9072-89-02 09:42:00 Test Item Value Reference Range Interpretation Comments Segs (test code = Segs) 60.1 45.0-75.0 [facility]2014-05-07 09:42:00 Test Item Value Reference Range Interpretation Comments Magnesium Lvl (test code = Magnesium 2.0 1.8-2.4 Lvl) [place] 951564-05-07 09:42:00 Test Item Value Reference Range Interpretation Comments eGFR (test code = eGFR) 113 [facility]2014-05-07 09:42:00 Test Item Value Reference Range Interpretation Comments BUN (test code = BUN) 4 7-22 [place] [address]-05-07 09:42:00 Test Item Value Reference Range Interpretation Comments Potassium Lvl (test code = Potassium 3.8 3.5-5.1 Lvl) [place] [address]-05-07 09:42:00 Test Item Value Reference Range Interpretation Comments Creatinine Lvl (test code = Creatinine 0.5 0.5-1.4 Lvl) [place] [address]-05-07 09:42:00 Test Item Value Reference Range Interpretation Comments Glucose Lvl (test code = Glucose Lvl) 94 70-99 [place] 951564-05-07 09:42:00 Test Item Value Reference Range Interpretation Comments Sodium Lvl (test code = Sodium Lvl) 142 135-145 [place] 951564-05-07 09:42:00 Test Item Value Reference Range Interpretation Comments Calcium Lvl (test code = Calcium Lvl) 8.7 8.5-10.5 [place] 951564-05-07 09:42:00 Test Item Value Reference Range Interpretation Comments Chloride Lvl (test code = Chloride Lvl) 105 95-109 [facility]2014-05-07 09:42:00 Test Item Value Reference Range Interpretation Comments CO2 (test code = CO2) 30 24-32 [facility]2014-05-07 09:42:00 Test Item Value Reference Range Interpretation Comments AGAP (test code = AGAP) 10.8 10.0-20.0 [place] [address]-05-07 09:42:00 Test Item Value Reference Range Interpretation Comments WBC (test code = WBC) 4.4 3.7-10.4 [facility] HospitalBjkdqyrPEUUBZKYOT1483-11-73 09:42:00 Test Item Value Reference Range Interpretation Comments RBC (test code = RBC) 3.80 4.20-5.40 [place] [address]-05-07 09:42:00 Test Item Value Reference Range Interpretation Comments MCH (test code = MCH) 31.1 pg 27.0-31.0 [facility] HospitalFywafanVLKYTKTKGV4638-58-19 09:42:00 Test Item Value Reference Range Interpretation Comments Hgb (test code = Hgb) 11.8 12.0-16.0 [facility] HospitalVhvjhvdRRTSAVKSKD8221-25-73 09:42:00 Test Item Value Reference Range Interpretation Comments Hct (test code = Hct) 34.5 36.0-48.0 [facility] HospitalTaudpapIDQJSZTYYZ4141-19-38 09:42:00 Test Item Value Reference Range Interpretation Comments MCV (test code = MCV) 90.6 81.0-99.0 [facility] HospitalBgiofgbGHHVNWWUHZ4104-51-10 09:42:00 Test Item Value Reference Range Interpretation Comments RDW (test code = RDW) 16.3 11.5-14.5 [facility] HospitalYyfhmliRZLKKINWLR0101-46-47 09:42:00 Test Item Value Reference Range Interpretation Comments MCHC (test code = MCHC) 34.3 32.0-36.0 [facility] HospitalNgtjeboRCKFWKPSRK6011-96-00 09:42:00 Test Item Value Reference Range Interpretation Comments Platelet (test code = Platelet) 167 133-450 [facility] HospitalKaijcbfVPIHOQJWJD4864-31-11 09:42:00 Test Item Value Reference Range Interpretation Comments MPV (test code = MPV) 7.9 7.4-10.4 [facility] HospitalUggyfqwARGAFLJESA4773-69-26 09:42:00 Test Item Value Reference Range Interpretation Comments Eosinophils (test code = 1.6 See_Comment [A utomated message] The Eosinophils) system which ge nerated this result tra nsmitted reference range : <=4.0. The reference r jamaica was not used to int erpret this result as normal/abnormal . [facility] HospitalKlgacclIHZEGKAGTC1247-10-75 09:42:00 Test Item Value Reference Range Interpretation Comments Basophils (test code = 0.2 See_Comment [Aut omated message] The Basophils) system which ge nerated this result tra nsmitted reference range : <=1.0. The reference r jamaica was not used to int erpret this result as normal/abnormal . [facility] HospitalJwyvxltHTWSJENPAL8504-37-62 09:42:00 Test Item Value Reference Range Interpretation Comments Segs-Bands # (test code = Segs-Bands #) 2.6 1.5-8.1 [place] [address]-05-07 09:42:00 Test Item Value Reference Range Interpretation Comments Monocytes (test code = Monocytes) 7.4 2.0-12.0 [facility] HospitalLszejkrPDRCECEUHO1652-89-19 09:42:00 Test Item Value Reference Range Interpretation Comments Lymphocytes # (test code = Lymphocytes 1.3 1.0-5.5 #) [facility] HospitalOnamhmsUXKDZDVBSE8351-07-66 09:42:00 Test Item Value Reference Range Interpretation Comments Monocytes # (test code 0.3 See_Comment [Aut omated message] The = Monocytes #) system which generated this result tra nsmitted reference range : <=0.8. The reference r jamaica was not used to int erpret this result as normal/abnormal . [facility] HospitalLzoukagLVDJRSZGIE9605-51-59 09:42:00 Test Item Value Reference Range Interpretation Comments Eosinophils # (test code 0.1 See_Comment [A utomated message] The = Eosinophils #) system whic h generated this result tra nsmitted reference range : <=0.5. The reference r jamaica was not used to int erpret this result as normal/abnormal . [facility] HospitalAizsmheSQKXWHJTYK9797-02-18 09:42:00 Test Item Value Reference Range Interpretation Comments Basophils # (test code 0.0 See_Comment [Aut omated message] The = Basophils #) system which generated this result tra nsmitted reference range : <=0.2. The reference r jamaica was not used to int erpret this result as normal/abnormal . [place] 054344-05-07 09:42:00 Test Item Value Reference Range Interpretation Comments Lymphocytes (test code = Lymphocytes) 30.7 20.0-40.0 [place] [address]-05-07 09:42:00 Test Item Value Reference Range Interpretation [...] (test code = Glucose Lvl) 94 70-99 [place] 951564-05-07 09:42:00 Test Item Value Reference Range Interpretation [...] AGAP (test code = AGAP) 10.8 10.0-20.0 [facility] HospitalSmagrfwJKRJBISJUG9102-19-52 09:42:00 Test Item Value Reference Range Interpretation Comments WBC (test code = WBC) 4.4 3.7-10.4 [place] 054344-05-07 09:42:00 Test Item Value Reference Range Interpretation Comments RBC (test code = RBC) 3.80 4.20-5.40 [facility] HospitalGpehcybUVMTRRTUQW4327-89-66 09:42:00 Test Item Value Reference Range Interpretation Comments MCH (test code = MCH) 31.1 pg 27.0-31.0 [place] 054344-05-07 09:42:00 Test Item Value Reference Range Interpretation Comments Hgb (test code = Hgb) 11.8 12.0-16.0 [facility] HospitalKqtebmpRYQDVTRDYY4505-45-27 09:42:00 Test Item Value Reference Range Interpretation Comments Hct (test code = Hct) 34.5 36.0-48.0 [facility] HospitalAkedwgjXZKYNIBCAM7821-49-65 09:42:00 Test Item Value Reference Range Interpretation Comments MCV (test code = MCV) 90.6 81.0-99.0 [facility] HospitalNolncfaJDIENKUCYE0665-76-77 09:42:00 Test Item Value Reference Range Interpretation Comments RDW (test code = RDW) 16.3 11.5-14.5 [facility] HospitalIpykccwTKTLRDEAGT7601-63-47 09:42:00 Test Item Value Reference Range Interpretation Comments MCHC (test code = MCHC) 34.3 32.0-36.0 [facility] HospitalYhttkddUCHVYLYJDH6034-58-65 09:42:00 Test Item Value Reference Range Interpretation Comments Platelet (test code = Platelet) 167 133-450 [facility] HospitalDikwccbQDQCJNZMVS8659-52-41 09:42:00 Test Item Value Reference Range Interpretation Comments MPV (test code = MPV) 7.9 7.4-10.4 [facility] HospitalRzmzrxcYMENMBFBCT2904-69-89 09:42:00 Test Item Value Reference Range Interpretation Comments Eosinophils (test code = 1.6 See_Comment [A utomated message] The Eosinophils) system which ge nerated this result tra nsmitted reference range : <=4.0. The reference r jamaica was not used to int erpret this result as normal/abnormal . [facility]PxwjghjJMLDTWWCKM5352-70-42 09:42:00 Test Item Value Reference Range Interpretation Comments Basophils (test code = 0.2 See_Comment [Aut omated message] The Basophils) system which ge nerated this result tra nsmitted reference range : <=1.0. The reference r jamaica was not used to int erpret this result as normal/abnormal . [facility] HospitalGycmyleOKQXHWDXZG7191-33-40 09:42:00 Test Item Value Reference Range Interpretation Comments Segs-Bands # (test code = Segs-Bands #) 2.6 1.5-8.1 [facility]BwqbhseNTHXSHQIBB3803-20-44 09:42:00 Test Item Value Reference Range Interpretation Comments Monocytes (test code = Monocytes) 7.4 2.0-12.0 [facility] HospitalWkkedziYWYMKTTXIG6023-63-72 09:42:00 Test Item Value Reference Range Interpretation Comments Lymphocytes # (test code = Lymphocytes 1.3 1.0-5.5 #) [facility] HospitalIgkyiccZNRAVVMQST3529-55-74 09:42:00 Test Item Value Reference Range Interpretation Comments Monocytes # (test code 0.3 See_Comment [Aut omated message] The = Monocytes #) system which generated this result tra nsmitted reference range : <=0.8. The reference r jamaica was not used to int erpret this result as normal/abnormal . [place] [address]-05-07 09:42:00 Test Item Value Reference Range Interpretation Comments Eosinophils # (test code 0.1 See_Comment [A utomated message] The = Eosinophils #) system whic h generated this result tra nsmitted reference range : <=0.5. The reference r jamaica was not used to int erpret this result as normal/abnormal . [facility] HospitalCtdpwlvJGIVMZVCNP9445-60-96 09:42:00 Test Item Value Reference Range Interpretation Comments Basophils # (test code 0.0 See_Comment [Aut omated message] The = Basophils #) system which generated this result tra nsmitted reference range : <=0.2. The reference r jamaica was not used to int erpret this result as normal/abnormal . [place] 054344-05-07 09:42:00 Test Item Value Reference Range Interpretation Comments Lymphocytes (test code = Lymphocytes) 30.7 20.0-40.0 [place] [address]-05-07 09:42:00 Test Item Value Reference Range Interpretation Comments Segs (test code = Segs) 60.1 45.0-75.0 [place] 951564-05-07 09:42:00 Test Item Value Reference Range Interpretation Comments Magnesium Lvl (test code = Magnesium 2.0 1.8-2.4 Lvl) [place] 951564-05-07 09:42:00 Test Item Value Reference Range Interpretation Comments eGFR (test code = eGFR) 113 [place] 951564-05-07 09:42:00 Test Item Value Reference Range Interpretation Comments BUN (test code = BUN) 4 7-22 [place] [address]-05-07 09:42:00 Test Item Value Reference Range Interpretation Comments Potassium Lvl (test code = Potassium 3.8 3.5-5.1 Lvl) [facility]2014-05-07 09:42:00 Test Item Value Reference Range Interpretation Comments Creatinine Lvl (test code = Creatinine 0.5 0.5-1.4 Lvl) [facility]2014-05-07 09:42:00 Test Item Value Reference Range Interpretation Comments Glucose Lvl (test code = Glucose Lvl) 94 70-99 [place] 951564-05-07 09:42:00 Test Item Value Reference Range Interpretation Comments Sodium Lvl (test code = Sodium Lvl) 142 135-145 [place] 951564-05-07 09:42:00 Test Item Value Reference Range Interpretation Comments Calcium Lvl (test code = Calcium Lvl) 8.7 8.5-10.5 [place] 951564-05-07 09:42:00 Test Item Value Reference Range Interpretation Comments Chloride Lvl (test code = Chloride Lvl) 105 95-109 [facility]2014-05-07 09:42:00 Test Item Value Reference Range Interpretation Comments CO2 (test code = CO2) 30 24-32 [place] 951564-05-07 09:42:00 Test Item Value Reference Range Interpretation Comments AGAP (test code = AGAP) 10.8 10.0-20.0 [place] 054344-05-07 09:42:00 Test Item Value Reference Range Interpretation Comments WBC (test code = WBC) 4.4 3.7-10.4 [facility] HospitalSnxiznoBYSMNJHZSE4394-89-34 09:42:00 Test Item Value Reference Range Interpretation Comments RBC (test code = RBC) 3.80 4.20-5.40 [place] [address]-05-07 09:42:00 Test Item Value Reference Range Interpretation Comments MCH (test code = MCH) 31.1 pg 27.0-31.0 [facility] HospitalZbtxblgOABQGVDLID7063-63-70 09:42:00 Test Item Value Reference Range Interpretation Comments Hgb (test code = Hgb) 11.8 12.0-16.0 [place] 054344-05-07 09:42:00 Test Item Value Reference Range Interpretation Comments Hct (test code = Hct) 34.5 36.0-48.0 [place] [address]-05-07 09:42:00 Test Item Value Reference Range Interpretation Comments MCV (test code = MCV) 90.6 81.0-99.0 [facility] HospitalEoclyvbKIMKIPHKAX3941-45-70 09:42:00 Test Item Value Reference Range Interpretation Comments RDW (test code = RDW) 16.3 11.5-14.5 [facility] HospitalCkizyurGNISXYBFRG6503-20-71 09:42:00 Test Item Value Reference Range Interpretation Comments MCHC (test code = MCHC) 34.3 32.0-36.0 [facility] HospitalYpkkzddSTTRADNTWM4916-60-53 09:42:00 Test Item Value Reference Range Interpretation Comments Platelet (test code = Platelet) 167 133-450 [facility] HospitalHixswitKZBJCXMBJV0705-05-50 09:42:00 Test Item Value Reference Range Interpretation Comments MPV (test code = MPV) 7.9 7.4-10.4 [facility] HospitalCidtnpuLTFYMQAKFI2886-83-00 09:42:00 Test Item Value Reference Range Interpretation Comments Eosinophils (test code = 1.6 See_Comment [A utomated message] The Eosinophils) system which ge nerated this result tra nsmitted reference range : <=4.0. The reference r jamaica was not used to int erpret this result as normal/abnormal . [facility] HospitalTarvrcrGSKAITQENI2362-77-79 09:42:00 Test Item Value Reference Range Interpretation Comments Basophils (test code = 0.2 See_Comment [Aut omated message] The Basophils) system which ge nerated this result tra nsmitted reference range : <=1.0. The reference r jamaica was not used to int erpret this result as normal/abnormal . [facility] HospitalZgahiowPDTTRCPUMR9111-59-92 09:42:00 Test Item Value Reference Range Interpretation Comments Segs-Bands # (test code = Segs-Bands #) 2.6 1.5-8.1 [facility] HospitalSyhvajnUMZZMJZSXZ5627-71-41 09:42:00 Test Item Value Reference Range Interpretation Comments Monocytes (test code = Monocytes) 7.4 2.0-12.0 [facility] HospitalYagiakiZIHBKSAANG7027-40-06 09:42:00 Test Item Value Reference Range Interpretation Comments Lymphocytes # (test code = Lymphocytes 1.3 1.0-5.5 #) [facility] HospitalQteaohwCOWSDPRVYU8865-79-53 09:42:00 Test Item Value Reference Range Interpretation Comments Monocytes # (test code 0.3 See_Comment [Aut omated message] The = Monocytes #) system which generated this result tra nsmitted reference range : <=0.8. The reference r jamaica was not used to int erpret this result as normal/abnormal . [facility] HospitalVjwpetkXRJTFQYIZR1637-00-04 09:42:00 Test Item Value Reference Range Interpretation Comments Eosinophils # (test code 0.1 See_Comment [A utomated message] The = Eosinophils #) system whic h generated this result tra nsmitted reference range : <=0.5. The reference r jamacia was not used to int erpret this result as normal/abnormal . [facility] HospitalAefcznyGZBKRIQSMD7093-25-17 09:42:00 Test Item Value Reference Range Interpretation Comments Basophils # (test code 0.0 See_Comment [Aut omated message] The = Basophils #) system which generated this result tra nsmitted reference range : <=0.2. The reference r jamaica was not used to int erpret this result as normal/abnormal . [facility] HospitalMxibordNBMMHKDDJF9710-20-16 09:42:00 Test Item Value Reference Range Interpretation Comments Lymphocytes (test code = Lymphocytes) 30.7 20.0-40.0 [facility] HospitalIexgtntTYFSTVAYNU1001-33-40 09:42:00 Test Item Value Reference Range Interpretation [...] (test code = Calcium Lvl) 8.7 8.5-10.5 [place] 951564-05-07 09:42:00 Test Item Value Reference Range Interpretation Comments Chloride Lvl (test code = Chloride Lvl) 105 95-109 [facility]2014-05-07 09:42:00 Test Item Value Reference Range Interpretation Comments CO2 (test code = CO2) 30 24-32 [facility]2014-05-07 09:42:00 Test Item Value Reference Range Interpretation Comments AGAP (test code = AGAP) 10.8 10.0-20.0 [place] [address]-05-07 09:42:00 Test Item Value Reference Range Interpretation Comments WBC (test code = WBC) 4.4 3.7-10.4 [facility] HospitalBotxxvbYPLVJFDQIS4096-22-11 09:42:00 Test Item Value Reference Range Interpretation Comments RBC (test code = RBC) 3.80 4.20-5.40 [facility] HospitalRuokpfuVZJZLJOMGR4411-96-12 09:42:00 Test Item Value Reference Range Interpretation Comments MCH (test code = MCH) 31.1 pg 27.0-31.0 [facility] HospitalGfgzdqcFWYZAKYYWL7553-53-80 09:42:00 Test Item Value Reference Range Interpretation Comments Hgb (test code = Hgb) 11.8 12.0-16.0 [facility] HospitalPryhhyrNGMHXKAYCM8825-56-59 09:42:00 Test Item Value Reference Range Interpretation Comments Hct (test code = Hct) 34.5 36.0-48.0 [place] [address]-05-07 09:42:00 Test Item Value Reference Range Interpretation Comments MCV (test code = MCV) 90.6 81.0-99.0 [place] [address]-05-07 09:42:00 Test Item Value Reference Range Interpretation Comments RDW (test code = RDW) 16.3 11.5-14.5 [facility] HospitalKtxjgatDTHLFDTVXF5234-31-07 09:42:00 Test Item Value Reference Range Interpretation Comments MCHC (test code = MCHC) 34.3 32.0-36.0 [facility] HospitalTtebqkgCFSXLOKPSJ7519-48-87 09:42:00 Test Item Value Reference Range Interpretation Comments Platelet (test code = Platelet) 167 133-450 [facility] HospitalBbkbnwyXLSZWCGCMC8416-87-74 09:42:00 Test Item Value Reference Range Interpretation Comments MPV (test code = MPV) 7.9 7.4-10.4 [facility] HospitalLugxtwbQTLSFWUMUZ5437-88-55 09:42:00 Test Item Value Reference Range Interpretation Comments Eosinophils (test code = 1.6 See_Comment [A utomated message] The Eosinophils) system which ge nerated this result tra nsmitted reference range : <=4.0. The reference r jamaica was not used to int erpret this result as normal/abnormal . [facility] HospitalBugbsttVGAJLWQYMW7706-88-59 09:42:00 Test Item Value Reference Range Interpretation Comments Basophils (test code = 0.2 See_Comment [Aut omated message] The Basophils) system which ge nerated this result tra nsmitted reference range : <=1.0. The reference r jamaica was not used to int erpret this result as normal/abnormal . [facility] HospitalSuwnrhgNTANZTUFSA4689-22-69 09:42:00 Test Item Value Reference Range Interpretation Comments Segs-Bands # (test code = Segs-Bands #) 2.6 1.5-8.1 [facility] HospitalIyzdyvgDBYRBUXYAE6509-36-00 09:42:00 Test Item Value Reference Range Interpretation Comments Monocytes (test code = Monocytes) 7.4 2.0-12.0 [facility] HospitalMzcsmoaWLQVMQNOKC0177-61-08 09:42:00 Test Item Value Reference Range Interpretation Comments Lymphocytes # (test code = Lymphocytes 1.3 1.0-5.5 #) [facility] HospitalJhcpyyfRDLOIGKEJM0636-21-19 09:42:00 Test Item Value Reference Range Interpretation Comments Monocytes # (test code 0.3 See_Comment [Aut omated message] The = Monocytes #) system which generated this result tra nsmitted reference range : <=0.8. The reference r jamaica was not used to int erpret this result as normal/abnormal . [facility] HospitalNvhonuwIIDSPGBITE6705-44-89 09:42:00 Test Item Value Reference Range Interpretation Comments Eosinophils # (test code 0.1 See_Comment [A utomated message] The = Eosinophils #) system whic h generated this result tra nsmitted reference range : <=0.5. The reference r jamaica was not used to int erpret this result as normal/abnormal . [facility] HospitalMsnwzcdYHGEGRNNYM6600-15-30 09:42:00 Test Item Value Reference Range Interpretation Comments Basophils # (test code 0.0 See_Comment [Aut omated message] The = Basophils #) system which generated this result tra nsmitted reference range : <=0.2. The reference r jamaica was not used to int erpret this result as normal/abnormal . [facility] HospitalFyyonulSRDPWOHGTO4091-77-61 09:42:00 Test Item Value Reference Range Interpretation Comments Lymphocytes (test code = Lymphocytes) 30.7 20.0-40.0 [place] [address]-05-07 09:42:00 Test Item Value Reference Range Interpretation [...] AGAP (test code = AGAP) 10.8 10.0-20.0 [facility] HospitalSakqcrhSPXNCCJMHI7992-04-91 09:42:00 Test Item Value Reference Range Interpretation Comments WBC (test code = WBC) 4.4 3.7-10.4 [place] 054344-05-07 09:42:00 Test Item Value Reference Range Interpretation Comments RBC (test code = RBC) 3.80 4.20-5.40 [facility] HospitalWujqfxqVDKMUWZCMP9636-93-66 09:42:00 Test Item Value Reference Range Interpretation Comments MCH (test code = MCH) 31.1 pg 27.0-31.0 [facility] HospitalYwyflsmAOLVIUKUBX2775-35-72 09:42:00 Test Item Value Reference Range Interpretation Comments Hgb (test code = Hgb) 11.8 12.0-16.0 [facility] HospitalThhededYBJUVXCEJG8056-86-00 09:42:00 Test Item Value Reference Range Interpretation Comments Hct (test code = Hct) 34.5 36.0-48.0 [facility] HospitalTlwfmmhRILDMRPPBH2284-46-91 09:42:00 Test Item Value Reference Range Interpretation Comments MCV (test code = MCV) 90.6 81.0-99.0 [place] 054344-05-07 09:42:00 Test Item Value Reference Range Interpretation Comments RDW (test code = RDW) 16.3 11.5-14.5 [facility] HospitalQlujmsvDGFBGSHPZS2205-31-44 09:42:00 Test Item Value Reference Range Interpretation Comments MCHC (test code = MCHC) 34.3 32.0-36.0 [facility] HospitalSbxamouQQHCNFRPJD6704-28-33 09:42:00 Test Item Value Reference Range Interpretation Comments Platelet (test code = Platelet) 167 133-450 [facility] HospitalRzpuzlfDDFIAPASWE7304-33-37 09:42:00 Test Item Value Reference Range Interpretation Comments MPV (test code = MPV) 7.9 7.4-10.4 [facility] HospitalBhxrnedVKSWVTXNKR5945-72-78 09:42:00 Test Item Value Reference Range Interpretation Comments Eosinophils (test code = 1.6 See_Comment [A utomated message] The Eosinophils) system which ge nerated this result tra nsmitted reference range : <=4.0. The reference r jamaica was not used to int erpret this result as normal/abnormal . [facility] HospitalAztpujzFHZVLEOBBT1117-34-66 09:42:00 Test Item Value Reference Range Interpretation Comments Basophils (test code = 0.2 See_Comment [Aut omated message] The Basophils) system which ge nerated this result tra nsmitted reference range : <=1.0. The reference r jamaica was not used to int erpret this result as normal/abnormal . [facility] HospitalSgmbqdfDKTMKZHVFZ2247-40-64 09:42:00 Test Item Value Reference Range Interpretation Comments Segs-Bands # (test code = Segs-Bands #) 2.6 1.5-8.1 [facility] HospitalSygkyacLLCSMYVVWL1726-36-87 09:42:00 Test Item Value Reference Range Interpretation Comments Monocytes (test code = Monocytes) 7.4 2.0-12.0 [facility] HospitalYeadlrvOGAJMOONQL6870-92-76 09:42:00 Test Item Value Reference Range Interpretation Comments Lymphocytes # (test code = Lymphocytes 1.3 1.0-5.5 #) [facility] HospitalOnichjnUYJAVKIMYK1411-45-64 09:42:00 Test Item Value Reference Range Interpretation Comments Monocytes # (test code 0.3 See_Comment [Aut omated message] The = Monocytes #) system which generated this result tra nsmitted reference range : <=0.8. The reference r jamaica was not used to int erpret this result as normal/abnormal . [facility] HospitalDgpsxltPZTBTEGRXF2458-64-26 09:42:00 Test Item Value Reference Range Interpretation Comments Eosinophils # (test code 0.1 See_Comment [A utomated message] The = Eosinophils #) system whic h generated this result tra nsmitted reference range : <=0.5. The reference r jamaica was not used to int erpret this result as normal/abnormal . [place] 054344-05-07 09:42:00 Test Item Value Reference Range Interpretation Comments Basophils # (test code 0.0 See_Comment [Aut omated message] The = Basophils #) system which generated this result tra nsmitted reference range : <=0.2. The reference r jamaica was not used to int erpret this result as normal/abnormal . [place] [address]-05-07 09:42:00 Test Item Value Reference Range Interpretation Comments Lymphocytes (test code = Lymphocytes) 30.7 20.0-40.0 [place] [address]-05-07 09:42:00 Test Item Value Reference Range Interpretation [...] BUN (test code = BUN) 4 7-22 [place] 951564-05-07 09:42:00 Test Item Value Reference Range Interpretation Comments Potassium Lvl (test code = Potassium 3.8 3.5-5.1 Lvl) [facility]2014-05-07 09:42:00 Test Item Value Reference Range Interpretation Comments Creatinine Lvl (test code = Creatinine 0.5 0.5-1.4 Lvl) [facility]2014-05-07 09:42:00 Test Item Value Reference Range Interpretation Comments Glucose Lvl (test code = Glucose Lvl) 94 70-99 [place] 951564-05-07 09:42:00 Test Item Value Reference Range Interpretation Comments Sodium Lvl (test code = Sodium Lvl) 142 135-145 [place] 951564-05-07 09:42:00 Test Item Value Reference Range Interpretation [...] AGAP (test code = AGAP) 10.8 10.0-20.0 [facility] HospitalAwrxzfkTKACLVIYIG6410-27-47 09:42:00 Test Item Value Reference Range Interpretation Comments WBC (test code = WBC) 4.4 3.7-10.4 [facility] HospitalNnidjmsPMHDFJMRYZ1396-82-56 09:42:00 Test Item Value Reference Range Interpretation Comments RBC (test code = RBC) 3.80 4.20-5.40 [facility] HospitalXbiaqkcYJWWCTRAYW0281-17-09 09:42:00 Test Item Value Reference Range Interpretation Comments MCH (test code = MCH) 31.1 pg 27.0-31.0 [facility] HospitalUplmjkvXVULUASXIP7460-39-01 09:42:00 Test Item Value Reference Range Interpretation Comments Hgb (test code = Hgb) 11.8 12.0-16.0 [facility] HospitalQvsfvujYHLBCXRQBE2211-24-37 09:42:00 Test Item Value Reference Range Interpretation Comments Hct (test code = Hct) 34.5 36.0-48.0 [facility] HospitalMseeflbOPNWGUTXCZ2525-66-49 09:42:00 Test Item Value Reference Range Interpretation Comments MCV (test code = MCV) 90.6 81.0-99.0 [facility] HospitalYxnhwqqGCZHYMEDVU7257-87-68 09:42:00 Test Item Value Reference Range Interpretation Comments RDW (test code = RDW) 16.3 11.5-14.5 [facility] HospitalSsmdodqSGAAIJNYLY5723-03-10 09:42:00 Test Item Value Reference Range Interpretation Comments MCHC (test code = MCHC) 34.3 32.0-36.0 [facility] HospitalIdcctviAEVTNPOXOG7223-08-71 09:42:00 Test Item Value Reference Range Interpretation Comments Platelet (test code = Platelet) 167 133-450 [facility] HospitalVwfsbbbSWNJGHVVFD3350-02-47 09:42:00 Test Item Value Reference Range Interpretation Comments MPV (test code = MPV) 7.9 7.4-10.4 [facility] HospitalYlyoxqtCJZPAALJVV6090-93-35 09:42:00 Test Item Value Reference Range Interpretation Comments Eosinophils (test code = 1.6 See_Comment [A utomated message] The Eosinophils) system which ge nerated this result tra nsmitted reference range : <=4.0. The reference r jamaica was not used to int erpret this result as normal/abnormal . [facility] HospitalZosagimHRBSHOCDKY5267-26-33 09:42:00 Test Item Value Reference Range Interpretation Comments Basophils (test code = 0.2 See_Comment [Aut omated message] The Basophils) system which ge nerated this result tra nsmitted reference range : <=1.0. The reference r jamaica was not used to int erpret this result as normal/abnormal . [facility] HospitalVrzccaxKFVOIVFJLC9565-95-43 09:42:00 Test Item Value Reference Range Interpretation Comments Segs-Bands # (test code = Segs-Bands #) 2.6 1.5-8.1 [facility] HospitalHtgffzbNZTFRRDEPT0217-09-74 09:42:00 Test Item Value Reference Range Interpretation Comments Monocytes (test code = Monocytes) 7.4 2.0-12.0 [facility] HospitalBfkocnoZJFBZPRPBT7992-40-01 09:42:00 Test Item Value Reference Range Interpretation Comments Lymphocytes # (test code = Lymphocytes 1.3 1.0-5.5 #) [facility] HospitalKqhsmbgGSLOCIZVMR3846-80-56 09:42:00 Test Item Value Reference Range Interpretation Comments Monocytes # (test code 0.3 See_Comment [Aut omated message] The = Monocytes #) system which generated this result tra nsmitted reference range : <=0.8. The reference r jamaica was not used to int erpret this result as normal/abnormal . [facility] HospitalYmnmhjgSGUXAKFPBI3227-36-89 09:42:00 Test Item Value Reference Range Interpretation Comments Eosinophils # (test code 0.1 See_Comment [A utomated message] The = Eosinophils #) system whic h generated this result tra nsmitted reference range : <=0.5. The reference r jamaica was not used to int erpret this result as normal/abnormal . [facility] HospitalEdorchnVOVGKUGLYD9277-70-82 09:42:00 Test Item Value Reference Range Interpretation Comments Basophils # (test code 0.0 See_Comment [Aut omated message] The = Basophils #) system which generated this result tra nsmitted reference range : <=0.2. The reference r jamaica was not used to int erpret this result as normal/abnormal . [facility] HospitalQgsuaghOTKSMTASDA8521-24-03 09:42:00 Test Item Value Reference Range Interpretation Comments Lymphocytes (test code = Lymphocytes) 30.7 20.0-40.0 [facility] HospitalVwecaxhTEHKHKIURY5550-09-42 09:42:00 Test Item Value Reference Range Interpretation [...] (test code = Calcium Lvl) 8.7 8.5-10.5 [place] 951564-05-07 09:42:00 Test Item Value Reference Range Interpretation Comments Chloride Lvl (test code = Chloride Lvl) 105 95-109 [facility]2014-05-07 09:42:00 Test Item Value Reference Range Interpretation Comments CO2 (test code = CO2) 30 24-32 [facility]2014-05-07 09:42:00 Test Item Value Reference Range Interpretation Comments AGAP (test code = AGAP) 10.8 10.0-20.0 [facility] HospitalNddlwgdRYDBJDFWPP9798-41-84 09:42:00 Test Item Value Reference Range Interpretation Comments WBC (test code = WBC) 4.4 3.7-10.4 [facility] HospitalTrqxuxgRNGNAGQGKD9425-17-86 09:42:00 Test Item Value Reference Range Interpretation Comments RBC (test code = RBC) 3.80 4.20-5.40 [facility] HospitalJcnhttbPCOCLFRKIY6134-94-87 09:42:00 Test Item Value Reference Range Interpretation Comments MCH (test code = MCH) 31.1 pg 27.0-31.0 [facility] HospitalQozehqsATOWENHURE8747-82-50 09:42:00 Test Item Value Reference Range Interpretation Comments Hgb (test code = Hgb) 11.8 12.0-16.0 [facility] HospitalErqtqlqTCJGVPFTLA5798-71-26 09:42:00 Test Item Value Reference Range Interpretation Comments Hct (test code = Hct) 34.5 36.0-48.0 [facility] HospitalFlhntnzXEJXDMNOFZ5728-59-38 09:42:00 Test Item Value Reference Range Interpretation Comments MCV (test code = MCV) 90.6 81.0-99.0 [facility] HospitalVpcljkhFTSAUXKJTB5747-72-99 09:42:00 Test Item Value Reference Range Interpretation Comments RDW (test code = RDW) 16.3 11.5-14.5 [facility] HospitalYnbmhytDSJAZZBOPA2130-78-29 09:42:00 Test Item Value Reference Range Interpretation Comments MCHC (test code = MCHC) 34.3 32.0-36.0 [facility] HospitalSucwhsmVNNYEFKJCD0807-84-73 09:42:00 Test Item Value Reference Range Interpretation Comments Platelet (test code = Platelet) 167 133-450 [facility] HospitalJdiwohoDSQLKWBJJF7794-02-51 09:42:00 Test Item Value Reference Range Interpretation Comments MPV (test code = MPV) 7.9 7.4-10.4 [facility] HospitalFpdfitiTIGTVTOJHW5223-36-27 09:42:00 Test Item Value Reference Range Interpretation Comments Eosinophils (test code = 1.6 See_Comment [A utomated message] The Eosinophils) system which ge nerated this result tra nsmitted reference range : <=4.0. The reference r jamaica was not used to int erpret this result as normal/abnormal . [facility] HospitalEcnteomBWCAXXHKRF7038-24-66 09:42:00 Test Item Value Reference Range Interpretation Comments Basophils (test code = 0.2 See_Comment [Aut omated message] The Basophils) system which ge nerated this result tra nsmitted reference range : <=1.0. The reference r jamaica was not used to int erpret this result as normal/abnormal . [facility] HospitalDcwywfbKJQQSDLXVY2619-36-79 09:42:00 Test Item Value Reference Range Interpretation Comments Segs-Bands # (test code = Segs-Bands #) 2.6 1.5-8.1 [facility] HospitalOwbercxAHSJBAOMEO4952-26-20 09:42:00 Test Item Value Reference Range Interpretation Comments Monocytes (test code = Monocytes) 7.4 2.0-12.0 [facility] HospitalZuwvgcvFKDPNKUPPQ5724-33-65 09:42:00 Test Item Value Reference Range Interpretation Comments Lymphocytes # (test code = Lymphocytes 1.3 1.0-5.5 #) [facility]EopheyyZPJAEAUGGG1790-64-20 09:42:00 Test Item Value Reference Range Interpretation Comments Monocytes # (test code 0.3 See_Comment [Aut omated message] The = Monocytes #) system which generated this result tra nsmitted reference range : <=0.8. The reference r jamaica was not used to int erpret this result as normal/abnormal . [facility] HospitalHphpgsgIQMMDOAMCJ1827-03-22 09:42:00 Test Item Value Reference Range Interpretation Comments Eosinophils # (test code 0.1 See_Comment [A utomated message] The = Eosinophils #) system whic h generated this result tra nsmitted reference range : <=0.5. The reference r jamaica was not used to int erpret this result as normal/abnormal . [facility] HospitalGxwfptlMTHPWYHPTJ1435-18-52 09:42:00 Test Item Value Reference Range Interpretation Comments Basophils # (test code 0.0 See_Comment [Aut omated message] The = Basophils #) system which generated this result tra nsmitted reference range : <=0.2. The reference r jamaica was not used to int erpret this result as normal/abnormal . [facility] HospitalOlymggmEFRXQGGNTE2682-84-97 09:42:00 Test Item Value Reference Range Interpretation Comments Lymphocytes (test code = Lymphocytes) 30.7 20.0-40.0 [facility] HospitalKjpnzieTFHMDUTYKZ7999-76-59 09:42:00 Test Item Value Reference Range Interpretation Comments Segs (test code = Segs) 60.1 45.0-75.0 [facility]2014-05-07 09:42:00 Test Item Value Reference Range Interpretation Comments Magnesium Lvl (test code = Magnesium 2.0 1.8-2.4 Lvl) [facility] HospitalQvxulecIBGAUAYECD5331-05-63 09:42:00 Test Item Value Reference Range Interpretation Comments WBC (test code = WBC) 4.4 3.7-10.4 [facility] HospitalCdlhhtuDETNNYXYPT7400-23-29 09:42:00 Test Item Value Reference Range Interpretation Comments RBC (test code = RBC) 3.80 4.20-5.40 [facility] HospitalCvkcfivBSNEXRJJNZ2800-02-46 09:42:00 Test Item Value Reference Range Interpretation Comments MCH (test code = MCH) 31.1 pg 27.0-31.0 [facility] HospitalUkvnsvoZCBOJKGNZL5547-92-27 09:42:00 Test Item Value Reference Range Interpretation Comments Hgb (test code = Hgb) 11.8 12.0-16.0 [facility] HospitalJnnaozsAKZOUBAWOD4965-51-63 09:42:00 Test Item Value Reference Range Interpretation Comments Hct (test code = Hct) 34.5 36.0-48.0 [facility] HospitalUebegcbSHUEGDAONX4310-94-31 09:42:00 Test Item Value Reference Range Interpretation Comments MCV (test code = MCV) 90.6 81.0-99.0 [facility] HospitalAezkptxMKXIBCKUPC0031-96-40 09:42:00 Test Item Value Reference Range Interpretation Comments RDW (test code = RDW) 16.3 11.5-14.5 [facility] HospitalUgjonkrTVQIHWXCLG8760-88-39 09:42:00 Test Item Value Reference Range Interpretation Comments MCHC (test code = MCHC) 34.3 32.0-36.0 [facility] HospitalQesqcbwZUYJNPVEFI5248-93-70 09:42:00 Test Item Value Reference Range Interpretation Comments Platelet (test code = Platelet) 167 133-450 [facility] HospitalLnolzluRTRGJFJJVA7866-10-13 09:42:00 Test Item Value Reference Range Interpretation Comments MPV (test code = MPV) 7.9 7.4-10.4 [facility] HospitalXlscwldHNQZXSPNJU4755-64-99 09:42:00 Test Item Value Reference Range Interpretation Comments Eosinophils (test code = 1.6 See_Comment [A utomated message] The Eosinophils) system which ge nerated this result tra nsmitted reference range : <=4.0. The reference r jamaica was not used to int erpret this result as normal/abnormal . [facility] HospitalEpiscpcKDFVTBFBGQ2835-11-29 09:42:00 Test Item Value Reference Range Interpretation Comments Basophils (test code = 0.2 See_Comment [Aut omated message] The Basophils) system which ge nerated this result tra nsmitted reference range : <=1.0. The reference r jamaica was not used to int erpret this result as normal/abnormal . [facility] HospitalRbdxjdsKLFEITMFPF2001-15-59 09:42:00 Test Item Value Reference Range Interpretation Comments Segs-Bands # (test code = Segs-Bands #) 2.6 1.5-8.1 [facility] HospitalTdpjntiXRUBVVTOPN0572-82-08 09:42:00 Test Item Value Reference Range Interpretation Comments Monocytes (test code = Monocytes) 7.4 2.0-12.0 [facility] HospitalRotzrfgURENBTVGQP1662-85-96 09:42:00 Test Item Value Reference Range Interpretation Comments Lymphocytes # (test code = Lymphocytes 1.3 1.0-5.5 #) [facility] HospitalAfmytcmIWATNMJBPM4622-39-41 09:42:00 Test Item Value Reference Range Interpretation Comments Monocytes # (test code 0.3 See_Comment [Aut omated message] The = Monocytes #) system which generated this result tra nsmitted reference range : <=0.8. The reference r jamaica was not used to int erpret this result as normal/abnormal . [facility] HospitalIvotyuvETJRDZTCRG0630-75-68 09:42:00 Test Item Value Reference Range Interpretation Comments Eosinophils # (test code 0.1 See_Comment [A utomated message] The = Eosinophils #) system whic h generated this result tra nsmitted reference range : <=0.5. The reference r jamaica was not used to int erpret this result as normal/abnormal . [facility] HospitalFnqntvtWYBJJFWJJB4934-73-76 09:42:00 Test Item Value Reference Range Interpretation Comments Basophils # (test code 0.0 See_Comment [Aut omated message] The = Basophils #) system which generated this result tra nsmitted reference range : <=0.2. The reference r jamaica was not used to int erpret this result as normal/abnormal . [facility] HospitalAivczooPDLXCVQFKE4669-05-01 09:42:00 Test Item Value Reference Range Interpretation Comments Lymphocytes (test code = Lymphocytes) 30.7 20.0-40.0 [facility] HospitalZrwghypHPXJONANST2151-05-32 09:42:00 Test Item Value Reference Range Interpretation [...] BUN (test code = BUN) 4 7-22 [place] 951564-05-07 09:42:00 Test Item Value Reference Range Interpretation Comments Potassium Lvl (test code = Potassium 3.8 3.5-5.1 Lvl) [facility]2014-05-07 09:42:00 Test Item Value Reference Range Interpretation Comments Creatinine Lvl (test code = Creatinine 0.5 0.5-1.4 Lvl) [facility]2014-05-07 09:42:00 Test Item Value Reference Range Interpretation Comments Glucose Lvl (test code = Glucose Lvl) 94 70-99 [place] 951564-05-07 09:42:00 Test Item Value Reference Range Interpretation [...] AGAP (test code = AGAP) 10.8 10.0-20.0 [facility]2014-05-05 [...] (test code = Bili Total) 0.3 0.2-1.3 [place] 951564-05-05 12:13:00 Test Item Value Reference Range Interpretation [...] (test code = Albumin Lvl) 3.3 3.5-5.0 [place] 951564-05-05 12:13:00 Test Item Value Reference Range Interpretation Comments Calcium Lvl (test code = Calcium Lvl) 8.4 8.5-10.5 [facility]2014-05-05 12:13:00 Test Item Value Reference Range Interpretation Comments Chloride Lvl (test code = Chloride Lvl) 105 95-109 [facility] HospitalRdynvquCAPLRFDVRF9299-86-12 12:13:00 Test Item Value Reference Range Interpretation Comments Basophils # (test code 0.0 See_Comment [Aut omated message] The = Basophils #) system which generated this result tra nsmitted reference range : <=0.2. The reference r jamaica was not used to int erpret this result as normal/abnormal . [facility] HospitalZjjdnnhHNDMMQJRJH2242-30-22 12:13:00 Test Item Value Reference Range Interpretation Comments Segs (test code = Segs) 63.5 45.0-75.0 [facility] HospitalFnlwhjhAWOLYASPEJ8920-39-31 12:13:00 Test Item Value Reference Range Interpretation Comments Monocytes # (test code 0.3 See_Comment [Aut omated message] The = Monocytes #) system which generated this result tra nsmitted reference range : <=0.8. The reference r jamaica was not used to int erpret this result as normal/abnormal . [facility] HospitalFkjmcutFCJKXFNBGV6348-00-71 12:13:00 Test Item Value Reference Range Interpretation Comments Basophils (test code = 0.2 See_Comment [Aut omated message] The Basophils) system which ge nerated this result tra nsmitted reference range : <=1.0. The reference r jamaica was not used to int erpret this result as normal/abnormal . [facility] HospitalIpcrrrwCLXXNCATER6698-36-08 12:13:00 Test Item Value Reference Range Interpretation Comments Lymphocytes # (test code = Lymphocytes 1.5 1.0-5.5 #) [facility] HospitalPryezdqUOERWCWGLS5789-97-94 12:13:00 Test Item Value Reference Range Interpretation Comments Segs-Bands # (test code = Segs-Bands #) 3.3 1.5-8.1 [facility] HospitalPscbfiyPSCQEKJASG7166-30-38 12:13:00 Test Item Value Reference Range Interpretation Comments Eosinophils # (test code 0.1 See_Comment [A utomated message] The = Eosinophils #) system whic h generated this result tra nsmitted reference range : <=0.5. The reference r jamaica was not used to int erpret this result as normal/abnormal . [facility] HospitalMifwihqAKZPTZHXZI0454-25-56 12:13:00 Test Item Value Reference Range Interpretation Comments Lymphocytes (test code = Lymphocytes) 28.9 20.0-40.0 [facility] HospitalBwncyfrMLJCLRIQPA6612-24-98 12:13:00 Test Item Value Reference Range Interpretation Comments Monocytes (test code = Monocytes) 6.2 2.0-12.0 [facility] HospitalKfbfzfpKXSAYUABAD5872-87-43 12:13:00 Test Item Value Reference Range Interpretation Comments Eosinophils (test code = 1.2 See_Comment [A utomated message] The Eosinophils) system which ge nerated this result tra nsmitted reference range : <=4.0. The reference r jamaica was not used to int erpret this result as normal/abnormal . [facility] HospitalPcigdqsIFJCAPROOP3385-97-45 12:13:00 Test Item Value Reference Range Interpretation Comments MCHC (test code = MCHC) 34.3 32.0-36.0 [facility] HospitalYrpxjpbMZGPIUXGLH1377-48-97 12:13:00 Test Item Value Reference Range Interpretation Comments RDW (test code = RDW) 16.5 11.5-14.5 [facility] HospitalJqbgiktWYZQBEZQKN6181-86-80 12:13:00 Test Item Value Reference Range Interpretation Comments MCH (test code = MCH) 31.5 pg 27.0-31.0 [facility] HospitalRceqoukFRVIMVXEPC7129-49-18 12:13:00 Test Item Value Reference Range Interpretation Comments MCV (test code = MCV) 91.9 81.0-99.0 [facility] HospitalLwfwzlgEETKKFKDBV6920-14-66 12:13:00 Test Item Value Reference Range Interpretation Comments Platelet (test code = Platelet) 177 133-450 [facility] HospitalUedseyqTJGAPNXRFM0681-22-84 12:13:00 Test Item Value Reference Range Interpretation Comments MPV (test code = MPV) 7.9 7.4-10.4 [facility] HospitalMgtixcnUTKGGOVIRG0120-56-66 12:13:00 Test Item Value Reference Range Interpretation Comments RBC (test code = RBC) 3.91 4.20-5.40 [facility] HospitalMhegzcqJXTAQUWEBX7311-30-73 12:13:00 Test Item Value Reference Range Interpretation Comments Hct (test code = Hct) 35.9 36.0-48.0 [facility] HospitalIypwcujPTHFGKQQJL4165-00-26 12:13:00 Test Item Value Reference Range Interpretation Comments Hgb (test code = Hgb) 12.3 12.0-16.0 [facility] HospitalRwigdqzMNKGDHRWMJ9589-01-59 12:13:00 Test Item Value Reference Range Interpretation [...] (test code = A/G Ratio) 1.2 0.7-1.6 [place] 951564-05-05 12:13:00 Test Item Value Reference Range Interpretation [...] (test code = Chloride Lvl) 105 95-109 [facility] HospitalVcpdsinOYEMIMGFKI5022-02-47 12:13:00 Test Item Value Reference Range Interpretation Comments Basophils # (test code 0.0 See_Comment [Aut omated message] The = Basophils #) system which generated this result tra nsmitted reference range : <=0.2. The reference r jamaica was not used to int erpret this result as normal/abnormal . [facility] HospitalLdrceyhCCETSIEAFJ3298-11-61 12:13:00 Test Item Value Reference Range Interpretation Comments Segs (test code = Segs) 63.5 45.0-75.0 [facility] HospitalLweasxcQRVPNIHPOA6232-35-06 12:13:00 Test Item Value Reference Range Interpretation Comments Monocytes # (test code 0.3 See_Comment [Aut omated message] The = Monocytes #) system which generated this result tra nsmitted reference range : <=0.8. The reference r jamaica was not used to int erpret this result as normal/abnormal . [facility] HospitalWdrtlpfRBINLHBMDA0803-68-35 12:13:00 Test Item Value Reference Range Interpretation Comments Basophils (test code = 0.2 See_Comment [Aut omated message] The Basophils) system which ge nerated this result tra nsmitted reference range : <=1.0. The reference r jamaica was not used to int erpret this result as normal/abnormal . [facility] HospitalYoadoxvFWCLDZVNEN3399-19-57 12:13:00 Test Item Value Reference Range Interpretation Comments Lymphocytes # (test code = Lymphocytes 1.5 1.0-5.5 #) [facility] HospitalCqhbqlrYDVTNOCFPZ8740-47-71 12:13:00 Test Item Value Reference Range Interpretation Comments Segs-Bands # (test code = Segs-Bands #) 3.3 1.5-8.1 [facility] HospitalVlxqphhHADEOZSCPH4464-86-12 12:13:00 Test Item Value Reference Range Interpretation Comments Eosinophils # (test code 0.1 See_Comment [A utomated message] The = Eosinophils #) system whic h generated this result tra nsmitted reference range : <=0.5. The reference r jamaica was not used to int erpret this result as normal/abnormal . [facility] HospitalNvmyfehSBBNFNSAQA1238-49-63 12:13:00 Test Item Value Reference Range Interpretation Comments Lymphocytes (test code = Lymphocytes) 28.9 20.0-40.0 [facility] HospitalAlcmdlfLCBYPSFOGF1753-24-12 12:13:00 Test Item Value Reference Range Interpretation Comments Monocytes (test code = Monocytes) 6.2 2.0-12.0 [facility] HospitalRuvnznfELBFERBXBE9744-15-46 12:13:00 Test Item Value Reference Range Interpretation Comments Eosinophils (test code = 1.2 See_Comment [A utomated message] The Eosinophils) system which ge nerated this result tra nsmitted reference range : <=4.0. The reference r jamaica was not used to int erpret this result as normal/abnormal . [facility] HospitalGqojuyxDQEVZBLJIK2661-88-63 12:13:00 Test Item Value Reference Range Interpretation Comments MCHC (test code = MCHC) 34.3 32.0-36.0 [facility] HospitalDkjiskjJLLIYETDDX0984-13-12 12:13:00 Test Item Value Reference Range Interpretation Comments RDW (test code = RDW) 16.5 11.5-14.5 [facility] HospitalYooecjpOAGAATIZAW5044-48-88 12:13:00 Test Item Value Reference Range Interpretation Comments MCH (test code = MCH) 31.5 pg 27.0-31.0 [facility] HospitalCxktprtDRZWINNUTW9385-57-87 12:13:00 Test Item Value Reference Range Interpretation Comments MCV (test code = MCV) 91.9 81.0-99.0 [facility] HospitalRmnqusoXBRNNBNVMC0055-08-71 12:13:00 Test Item Value Reference Range Interpretation Comments Platelet (test code = Platelet) 177 133-450 [facility] HospitalYqnnlzjIJZKIVUJDG6095-94-79 12:13:00 Test Item Value Reference Range Interpretation Comments MPV (test code = MPV) 7.9 7.4-10.4 [facility] HospitalVoymmbtAWSQMEITKX9041-41-68 12:13:00 Test Item Value Reference Range Interpretation Comments RBC (test code = RBC) 3.91 4.20-5.40 [facility] HospitalEdxfvrpJTCVQZFWGM7802-97-69 12:13:00 Test Item Value Reference Range Interpretation Comments Hct (test code = Hct) 35.9 36.0-48.0 [facility] HospitalXvfbigeYCREIPBSMT8054-19-97 12:13:00 Test Item Value Reference Range Interpretation Comments Hgb (test code = Hgb) 12.3 12.0-16.0 [facility] HospitalGdbrolmLLVKMXYUKU8165-15-65 12:13:00 Test Item Value Reference Range Interpretation [...] BUN (test code = BUN) 7 7-22 [place] 951564-05-05 12:13:00 Test Item Value Reference Range Interpretation [...] (test code = Chloride Lvl) 105 95-109 [facility] HospitalXaycawqGBCXWMCTYB4925-78-53 12:13:00 Test Item Value Reference Range Interpretation Comments Basophils # (test code 0.0 See_Comment [Aut omated message] The = Basophils #) system which generated this result tra nsmitted reference range : <=0.2. The reference r jamaica was not used to int erpret this result as normal/abnormal . [facility] HospitalTgxhtgpAILGGCAGXL7031-67-73 12:13:00 Test Item Value Reference Range Interpretation Comments Segs (test code = Segs) 63.5 45.0-75.0 [facility] HospitalWpihnsjYSCABMCIAQ8076-15-66 12:13:00 Test Item Value Reference Range Interpretation Comments Monocytes # (test code 0.3 See_Comment [Aut omated message] The = Monocytes #) system which generated this result tra nsmitted reference range : <=0.8. The reference r jamaica was not used to int erpret this result as normal/abnormal . [facility] HospitalZignyhkJALJCSJOTO4530-43-91 12:13:00 Test Item Value Reference Range Interpretation Comments Basophils (test code = 0.2 See_Comment [Aut omated message] The Basophils) system which ge nerated this result tra nsmitted reference range : <=1.0. The reference r jamaica was not used to int erpret this result as normal/abnormal . [facility] HospitalDmkjizdLBAKNNOKYB2995-85-50 12:13:00 Test Item Value Reference Range Interpretation Comments Lymphocytes # (test code = Lymphocytes 1.5 1.0-5.5 #) [facility] HospitalQwzbrymFVOSWAJTZF1135-58-20 12:13:00 Test Item Value Reference Range Interpretation Comments Segs-Bands # (test code = Segs-Bands #) 3.3 1.5-8.1 [facility] HospitalIqiizneRCEGJYXERA2864-05-73 12:13:00 Test Item Value Reference Range Interpretation Comments Eosinophils # (test code 0.1 See_Comment [A utomated message] The = Eosinophils #) system ic h generated this result tra nsmitted reference range : <=0.5. The reference r jamaica was not used to int erpret this result as normal/abnormal . [facility] HospitalVtlidgwRLZMCOCZNZ8993-24-63 12:13:00 Test Item Value Reference Range Interpretation Comments Lymphocytes (test code = Lymphocytes) 28.9 20.0-40.0 [facility] HospitalPtqinifBBLYYONKYI9392-91-47 12:13:00 Test Item Value Reference Range Interpretation Comments Monocytes (test code = Monocytes) 6.2 2.0-12.0 [facility] HospitalHgnksjxWNWDEGAJBP8946-13-12 12:13:00 Test Item Value Reference Range Interpretation Comments Eosinophils (test code = 1.2 See_Comment [A utomated message] The Eosinophils) system which ge nerated this result tra nsmitted reference range : <=4.0. The reference r jamaica was not used to int erpret this result as normal/abnormal . [facility] HospitalZewsucmBOPLSTYOJS2311-93-84 12:13:00 Test Item Value Reference Range Interpretation Comments MCHC (test code = MCHC) 34.3 32.0-36.0 [facility] HospitalCtsckdyLVOQRWRCCP5886-17-13 12:13:00 Test Item Value Reference Range Interpretation Comments RDW (test code = RDW) 16.5 11.5-14.5 [facility] HospitalRfkibkyFAQFXWWUOS9270-04-22 12:13:00 Test Item Value Reference Range Interpretation Comments MCH (test code = MCH) 31.5 pg 27.0-31.0 [facility] HospitalKufkbgjGPUNEFHHES6648-30-91 12:13:00 Test Item Value Reference Range Interpretation Comments MCV (test code = MCV) 91.9 81.0-99.0 [facility] HospitalVyfszbyPHEVFVYKDR1299-82-55 12:13:00 Test Item Value Reference Range Interpretation Comments Platelet (test code = Platelet) 177 133-450 [facility] HospitalWjybsjxWRBYCXRDHO6410-35-36 12:13:00 Test Item Value Reference Range Interpretation Comments MPV (test code = MPV) 7.9 7.4-10.4 [facility] HospitalSlhvbodNUUOOYVWQG1937-97-48 12:13:00 Test Item Value Reference Range Interpretation Comments RBC (test code = RBC) 3.91 4.20-5.40 [facility] HospitalYrilosfNUDJNVWFPU8295-46-88 12:13:00 Test Item Value Reference Range Interpretation Comments Hct (test code = Hct) 35.9 36.0-48.0 [facility] HospitalZbnkednDFRBVTFZKN4198-53-08 12:13:00 Test Item Value Reference Range Interpretation Comments Hgb (test code = Hgb) 12.3 12.0-16.0 [facility] HospitalLysqyvaUQBTSKAQDB8917-00-89 12:13:00 Test Item Value Reference Range Interpretation [...] (test code = A/G Ratio) 1.2 0.7-1.6 [place] 951564-05-05 12:13:00 Test Item Value Reference Range Interpretation Comments B/C Ratio (test code = B/C Ratio) 10 6-25 [place] 951564-05-05 12:13:00 Test Item Value Reference Range Interpretation [...] (test code = Bili Total) 0.3 0.2-1.3 [place] 951564-05-05 12:13:00 Test Item Value Reference Range Interpretation [...] CO2 (test code = CO2) 33 24-32 [place] 951564-05-05 12:13:00 Test Item Value Reference Range Interpretation Comments Albumin Lvl (test code = Albumin Lvl) 3.3 3.5-5.0 [facility]2014-05-05 12:13:00 Test Item Value Reference Range Interpretation Comments Calcium Lvl (test code = Calcium Lvl) 8.4 8.5-10.5 [facility]2014-05-05 12:13:00 Test Item Value Reference Range Interpretation Comments Chloride Lvl (test code = Chloride Lvl) 105 95-109 [facility] HospitalKaarcdlJYYPIHJJIX3059-35-88 12:13:00 Test Item Value Reference Range Interpretation Comments Basophils # (test code 0.0 See_Comment [Aut omated message] The = Basophils #) system which generated this result tra nsmitted reference range : <=0.2. The reference r j[place]ica was not used to int erpret this result as normal/abnormal . [facility] HospitalHnsjgfrHUDETGULKB1543-96-22 12:13:00 Test Item Value Reference Range Interpretation Comments Segs (test code = Segs) 63.5 45.0-75.0 [facility] HospitalEgwbbxeLUFQMUPMDQ7680-67-80 12:13:00 Test Item Value Reference Range Interpretation Comments Monocytes # (test code 0.3 See_Comment [Aut omated message] The = Monocytes #) system which generated this result tra nsmitted reference range : <=0.8. The reference r j[place] was not used to int erpret this result as normal/abnormal . [facility] HospitalWwidmivPNTPTZDPIZ7970-48-58 12:13:00 Test Item Value Reference Range Interpretation Comments Basophils (test code = 0.2 See_Comment [Aut omated message] The Basophils) system which ge nerated this result tra nsmitted reference range : <=1.0. The reference r j[place] was not used to int erpret this result as normal/abnormal . [facility] HospitalLducrxpHOKJVVRLAL1602-98-50 12:13:00 Test Item Value Reference Range Interpretation Comments Lymphocytes # (test code = Lymphocytes 1.5 1.0-5.5 #) [facility] HospitalTkgrfypXQAZJKJBLI9928-02-93 12:13:00 Test Item Value Reference Range Interpretation Comments Segs-Bands # (test code = Segs-Bands #) 3.3 1.5-8.1 [facility] HospitalAxetxvwKNSGMIXZLT1954-22-10 12:13:00 Test Item Value Reference Range Interpretation Comments Eosinophils # (test code 0.1 See_Comment [A utomated message] The = Eosinophils #) system [facility] h generated this result tra nsmitted reference range : <=0.5. The reference r j[place] was not used to int erpret this result as normal/abnormal . [facility] HospitalYgowfxbAEOMTDNEAC3375-70-10 12:13:00 Test Item Value Reference Range Interpretation Comments Lymphocytes (test code = Lymphocytes) 28.9 20.0-40.0 [facility] HospitalWjfjkknOZEFHJLSKA0528-39-72 12:13:00 Test Item Value Reference Range Interpretation Comments Monocytes (test code = Monocytes) 6.2 2.0-12.0 [facility] HospitalFatwvoaRINWBPSVYF0033-07-77 12:13:00 Test Item Value Reference Range Interpretation Comments Eosinophils (test code = 1.2 See_Comment [A utomated message] The Eosinophils) system which ge nerated this result tra nsmitted reference range : <=4.0. The reference r j[place] was not used to int erpret this result as normal/abnormal . [facility] HospitalGqprzkbQAAPTNUAGA5189-30-37 12:13:00 Test Item Value Reference Range Interpretation Comments MCHC (test code = MCHC) 34.3 32.0-36.0 [facility] HospitalEbnukzzQGYFQEWZAM8855-02-05 12:13:00 Test Item Value Reference Range Interpretation Comments RDW (test code = RDW) 16.5 11.5-14.5 [facility] HospitalWtgskpcPRFHFRUFXC2641-05-91 12:13:00 Test Item Value Reference Range Interpretation Comments MCH (test code = MCH) 31.5 pg 27.0-31.0 [facility] HospitalZianavvQAWHZRSCXP6461-17-91 12:13:00 Test Item Value Reference Range Interpretation Comments MCV (test code = MCV) 91.9 81.0-99.0 [facility] HospitalNbqbzlbAORVARQENZ3916-97-56 12:13:00 Test Item Value Reference Range Interpretation Comments Platelet (test code = Platelet) 177 133-450 [facility] HospitalVwquesyDEMTMDVEIL3293-79-99 12:13:00 Test Item Value Reference Range Interpretation Comments MPV (test code = MPV) 7.9 7.4-10.4 [facility] HospitalGyhdcyjDLYTLWHCAD4759-52-36 12:13:00 Test Item Value Reference Range Interpretation Comments RBC (test code = RBC) 3.91 4.20-5.40 [facility] HospitalGyzidjlIDBQTVBNIF6529-20-22 12:13:00 Test Item Value Reference Range Interpretation Comments Hct (test code = Hct) 35.9 36.0-48.0 [facility]EbpsoeaMNBBWZKUCF5722-21-86 12:13:00 Test Item Value Reference Range Interpretation Comments Hgb (test code = Hgb) 12.3 12.0-16.0 [facility]QqiusrvGRZMIDKGVS7529-03-61 12:13:00 Test Item Value Reference Range Interpretation [...] (test code = A/G Ratio) 1.2 0.7-1.6 [place] 951564-05-05 12:13:00 Test Item Value Reference Range Interpretation [...] (test code = Chloride Lvl) 105 95-109 [facility]PrjuuddJRTFSKTAFD5799-06-60 12:13:00 Test Item Value Reference Range Interpretation Comments Basophils # (test code 0.0 See_Comment [Aut omated message] The = Basophils #) system which generated this result tra nsmitted reference range : <=0.2. The reference r jamaica was not used to int erpret this result as normal/abnormal . [facility] HospitalWsnoqnxGBMBCHWPDH6962-28-10 12:13:00 Test Item Value Reference Range Interpretation Comments Segs (test code = Segs) 63.5 45.0-75.0 [facility] HospitalLokopzaXLNIYHWSMA2533-38-49 12:13:00 Test Item Value Reference Range Interpretation Comments Monocytes # (test code 0.3 See_Comment [Aut omated message] The = Monocytes #) system which generated this result tra nsmitted reference range : <=0.8. The reference r jamaica was not used to int erpret this result as normal/abnormal . [facility] HospitalAjdpllwSJLNYDKFNP6373-46-67 12:13:00 Test Item Value Reference Range Interpretation Comments Basophils (test code = 0.2 See_Comment [Aut omated message] The Basophils) system which ge nerated this result tra nsmitted reference range : <=1.0. The reference r jamaica was not used to int erpret this result as normal/abnormal . [facility] HospitalPykbvdrLKQCSFMSOE8794-25-17 12:13:00 Test Item Value Reference Range Interpretation Comments Lymphocytes # (test code = Lymphocytes 1.5 1.0-5.5 #) [facility] HospitalOommazjDCZDZEBZVA5379-10-18 12:13:00 Test Item Value Reference Range Interpretation Comments Segs-Bands # (test code = Segs-Bands #) 3.3 1.5-8.1 [facility] HospitalEfcxediRAYWVIOIPP3894-82-54 12:13:00 Test Item Value Reference Range Interpretation Comments Eosinophils # (test code 0.1 See_Comment [A utomated message] The = Eosinophils #) system wh h generated this result tra nsmitted reference range : <=0.5. The reference r jamaica was not used to int erpret this result as normal/abnormal . [facility] HospitalMtpovqmUJNSYZVOBF4990-70-82 12:13:00 Test Item Value Reference Range Interpretation Comments Lymphocytes (test code = Lymphocytes) 28.9 20.0-40.0 [facility] HospitalDibnshtARTPBEKWVR1633-11-53 12:13:00 Test Item Value Reference Range Interpretation Comments Monocytes (test code = Monocytes) 6.2 2.0-12.0 [facility] HospitalGqibcnjQKNQCKEVZB0818-67-60 12:13:00 Test Item Value Reference Range Interpretation Comments Eosinophils (test code = 1.2 See_Comment [A utomated message] The Eosinophils) system which ge nerated this result tra nsmitted reference range : <=4.0. The reference r jamaica was not used to int erpret this result as normal/abnormal . [facility] HospitalUfcdtwwUPXQPJEFVI2399-29-45 12:13:00 Test Item Value Reference Range Interpretation Comments MCHC (test code = MCHC) 34.3 32.0-36.0 [facility] HospitalKthbxweLFHUQQJDED6013-50-87 12:13:00 Test Item Value Reference Range Interpretation Comments RDW (test code = RDW) 16.5 11.5-14.5 [facility] HospitalHnrycgsTZUMRMMKAL1558-19-86 12:13:00 Test Item Value Reference Range Interpretation Comments MCH (test code = MCH) 31.5 pg 27.0-31.0 [facility] HospitalBgwhzyiQHHLAYLXOZ7046-10-09 12:13:00 Test Item Value Reference Range Interpretation Comments MCV (test code = MCV) 91.9 81.0-99.0 [facility] HospitalMbjrdznYTIIRYIGCP8536-19-68 12:13:00 Test Item Value Reference Range Interpretation Comments Platelet (test code = Platelet) 177 133-450 [facility] HospitalGsqnaclGVSDPNGCQQ3524-02-24 12:13:00 Test Item Value Reference Range Interpretation Comments MPV (test code = MPV) 7.9 7.4-10.4 [facility] HospitalKusjxuhJODOCJBFZH0043-29-82 12:13:00 Test Item Value Reference Range Interpretation Comments RBC (test code = RBC) 3.91 4.20-5.40 [facility] HospitalCtsbercRRZXVNSXYF7367-23-75 12:13:00 Test Item Value Reference Range Interpretation Comments Hct (test code = Hct) 35.9 36.0-48.0 [facility] HospitalCrnxvdvVFYRKHUOSN6043-78-23 12:13:00 Test Item Value Reference Range Interpretation Comments Hgb (test code = Hgb) 12.3 12.0-16.0 [facility] HospitalMpimdqfAJSGDKNYFF5922-88-64 12:13:00 Test Item Value Reference Range Interpretation [...] (test code = A/G Ratio) 1.2 0.7-1.6 [place] 951564-05-05 12:13:00 Test Item Value Reference Range Interpretation Comments B/C Ratio (test code = B/C Ratio) 10 6-25 [place] 951564-05-05 12:13:00 Test Item Value Reference Range Interpretation Comments AGAP (test code = AGAP) 6.9 10.0-20.0 [place] 951564-05-05 12:13:00 Test Item Value Reference Range Interpretation [...] BUN (test code = BUN) 7 7-22 [place] 951564-05-05 12:13:00 Test Item Value Reference Range Interpretation Comments Bili Total (test code = Bili Total) 0.3 0.2-1.3 [place] 951564-05-05 12:13:00 Test Item Value Reference Range Interpretation Comments Alk Phos (test code = Alk Phos) 71 39-136 [place] 951564-05-05 12:13:00 Test Item Value Reference Range Interpretation Comments AST (test code = AST) 21 See_Comment [Auto mated message] The system which ge nerated this result transmit ulysses reference range : <=37. The reference range was not used to interpr et this result as sharron l/abnormal. [place] 951564-05-05 12:13:00 Test Item Value Reference Range Interpretation [...] (test code = Calcium Lvl) 8.4 8.5-10.5 [place] 951564-05-05 12:13:00 Test Item Value Reference Range Interpretation Comments Chloride Lvl (test code = Chloride Lvl) 105 95-109 [facility] HospitalShnrtuyATFHDQNRAM3660-83-06 12:13:00 Test Item Value Reference Range Interpretation Comments Basophils # (test code 0.0 See_Comment [Aut omated message] The = Basophils #) system which generated this result tra nsmitted reference range : <=0.2. The reference r jamaica was not used to int erpret this result as normal/abnormal . [facility] HospitalHlvkhgaACHJCHCPDL2903-26-97 12:13:00 Test Item Value Reference Range Interpretation Comments Segs (test code = Segs) 63.5 45.0-75.0 [facility] HospitalVfrpxhqEJDIPGIITA6168-57-15 12:13:00 Test Item Value Reference Range Interpretation Comments Monocytes # (test code 0.3 See_Comment [Aut omated message] The = Monocytes #) system which generated this result tra nsmitted reference range : <=0.8. The reference r jamaica was not used to int erpret this result as normal/abnormal . [facility] HospitalChxxrcwTXSHBLZEYG8470-55-26 12:13:00 Test Item Value Reference Range Interpretation Comments Basophils (test code = 0.2 See_Comment [Aut omated message] The Basophils) system which ge nerated this result tra nsmitted reference range : <=1.0. The reference r jamaica was not used to int erpret this result as normal/abnormal . [facility] HospitalPaycqvwZQZXKESMSK0566-03-71 12:13:00 Test Item Value Reference Range Interpretation Comments Lymphocytes # (test code = Lymphocytes 1.5 1.0-5.5 #) [facility] HospitalScxgjajPABYBCZWAZ1768-31-19 12:13:00 Test Item Value Reference Range Interpretation Comments Segs-Bands # (test code = Segs-Bands #) 3.3 1.5-8.1 [facility] HospitalHtgwzzzYLWUXENVQR1946-03-14 12:13:00 Test Item Value Reference Range Interpretation Comments Eosinophils # (test code 0.1 See_Comment [A utomated message] The = Eosinophils #) system whic h generated this result tra nsmitted reference range : <=0.5. The reference r jamaica was not used to int erpret this result as normal/abnormal . [facility] HospitalEcwjowfVWUGIZUMCS8538-50-82 12:13:00 Test Item Value Reference Range Interpretation Comments Lymphocytes (test code = Lymphocytes) 28.9 20.0-40.0 [facility] HospitalUdqzrcqQDZRDZUVSG1550-27-10 12:13:00 Test Item Value Reference Range Interpretation Comments Monocytes (test code = Monocytes) 6.2 2.0-12.0 [facility] HospitalUlqnzbwDMJBUFHUWS1241-86-93 12:13:00 Test Item Value Reference Range Interpretation Comments Eosinophils (test code = 1.2 See_Comment [A utomated message] The Eosinophils) system which ge nerated this result tra nsmitted reference range : <=4.0. The reference r jamaica was not used to int erpret this result as normal/abnormal . [facility] HospitalZyllvroCIIWZHKXYN9319-69-71 12:13:00 Test Item Value Reference Range Interpretation Comments MCHC (test code = MCHC) 34.3 32.0-36.0 [facility] HospitalJfgdiwkDECUEMRJNF1887-27-36 12:13:00 Test Item Value Reference Range Interpretation Comments RDW (test code = RDW) 16.5 11.5-14.5 [facility] HospitalFxybqclASQQBPIIZR6551-27-89 12:13:00 Test Item Value Reference Range Interpretation Comments MCH (test code = MCH) 31.5 pg 27.0-31.0 [facility] HospitalBnsuqgeHZOKHWKICI5524-86-40 12:13:00 Test Item Value Reference Range Interpretation Comments MCV (test code = MCV) 91.9 81.0-99.0 [facility] HospitalYxhbyxrINWXKSBZGA1674-39-59 12:13:00 Test Item Value Reference Range Interpretation Comments Platelet (test code = Platelet) 177 133-450 [facility] HospitalYjqgukrQQCFZZIQKQ5405-03-60 12:13:00 Test Item Value Reference Range Interpretation Comments MPV (test code = MPV) 7.9 7.4-10.4 [facility] HospitalDoquiibVASNHHXVSK9948-54-36 12:13:00 Test Item Value Reference Range Interpretation Comments RBC (test code = RBC) 3.91 4.20-5.40 [facility] HospitalXodnjqtSRLPDHIXUU4369-91-43 12:13:00 Test Item Value Reference Range Interpretation Comments Hct (test code = Hct) 35.9 36.0-48.0 [facility] HospitalNpezymzSTHULPHLNO3957-38-14 12:13:00 Test Item Value Reference Range Interpretation Comments Hgb (test code = Hgb) 12.3 12.0-16.0 [facility] HospitalBoecelnDWMHQNJARP8249-20-39 12:13:00 Test Item Value Reference Range Interpretation [...] (test code = Sodium Lvl) 141 135-145 [place] 951564-05-05 12:13:00 Test Item Value Reference Range Interpretation Comments Creatinine Lvl (test code = Creatinine 0.7 0.5-1.4 Lvl) [facility]2014-05-05 12:13:00 Test Item Value Reference Range Interpretation Comments BUN (test code = BUN) 7 7-22 [place] 951564-05-05 12:13:00 Test Item Value Reference Range Interpretation Comments Bili Total (test code = Bili Total) 0.3 0.2-1.3 [place] 951564-05-05 12:13:00 Test Item Value Reference Range Interpretation Comments Alk Phos (test code = Alk Phos) 71 39-136 [place] 951564-05-05 12:13:00 Test Item Value Reference Range Interpretation [...] interpr et this result as sharron l/abnormal. [place] 951564-05-05 12:13:00 Test Item Value Reference Range Interpretation [...] (test code = Chloride Lvl) 105 95-109 [facility] HospitalXsvyfyrGDLBZYRSQM1203-86-03 12:13:00 Test Item Value Reference Range Interpretation Comments Basophils # (test code 0.0 See_Comment [Aut omated message] The = Basophils #) system which generated this result tra nsmitted reference range : <=0.2. The reference r jamaica was not used to int erpret this result as normal/abnormal . [facility] HospitalPpavjasHZNPWDMMHO9791-43-10 12:13:00 Test Item Value Reference Range Interpretation Comments Segs (test code = Segs) 63.5 45.0-75.0 [facility] HospitalAosixbdNYUWIQUKAI6744-64-89 12:13:00 Test Item Value Reference Range Interpretation Comments Monocytes # (test code 0.3 See_Comment [Aut omated message] The = Monocytes #) system which generated this result tra nsmitted reference range : <=0.8. The reference r jamaica was not used to int erpret this result as normal/abnormal . [facility] HospitalKitxdvjOEYENGPPCE8397-60-06 12:13:00 Test Item Value Reference Range Interpretation Comments Basophils (test code = 0.2 See_Comment [Aut omated message] The Basophils) system which ge nerated this result tra nsmitted reference range : <=1.0. The reference r jamaica was not used to int erpret this result as normal/abnormal . [facility] HospitalDxopyhsOYEOMWVCKL3024-78-28 12:13:00 Test Item Value Reference Range Interpretation Comments Lymphocytes # (test code = Lymphocytes 1.5 1.0-5.5 #) [facility] HospitalDgdtmbzYTFSUEZYFE1424-03-95 12:13:00 Test Item Value Reference Range Interpretation Comments Segs-Bands # (test code = Segs-Bands #) 3.3 1.5-8.1 [facility] HospitalRetddaqAXYAKQILKJ9699-56-17 12:13:00 Test Item Value Reference Range Interpretation Comments Eosinophils # (test code 0.1 See_Comment [A utomated message] The = Eosinophils #) system whic h generated this result tra nsmitted reference range : <=0.5. The reference r jamaica was not used to int erpret this result as normal/abnormal . [facility] HospitalXmaqxyuCBVGOAUUMK5888-74-15 12:13:00 Test Item Value Reference Range Interpretation Comments Lymphocytes (test code = Lymphocytes) 28.9 20.0-40.0 [facility] HospitalDbhnetiKPMJUSSVWX9504-35-43 12:13:00 Test Item Value Reference Range Interpretation Comments Monocytes (test code = Monocytes) 6.2 2.0-12.0 [facility] HospitalQdjfdtpXMDNJVVKCI2658-92-67 12:13:00 Test Item Value Reference Range Interpretation Comments Eosinophils (test code = 1.2 See_Comment [A utomated message] The Eosinophils) system which ge nerated this result tra nsmitted reference range : <=4.0. The reference r jamaica was not used to int erpret this result as normal/abnormal . [facility] HospitalHlylhfpPEYXAYXOJB2219-21-69 12:13:00 Test Item Value Reference Range Interpretation Comments MCHC (test code = MCHC) 34.3 32.0-36.0 [facility] HospitalYzaoqeuJVFNJYJRDC8026-97-57 12:13:00 Test Item Value Reference Range Interpretation Comments RDW (test code = RDW) 16.5 11.5-14.5 [facility] HospitalVvyehbnFLDIPUCEGO5201-39-52 12:13:00 Test Item Value Reference Range Interpretation Comments MCH (test code = MCH) 31.5 pg 27.0-31.0 [facility] HospitalThhbsolROQEPLCUBB3822-51-79 12:13:00 Test Item Value Reference Range Interpretation Comments MCV (test code = MCV) 91.9 81.0-99.0 [facility] HospitalZjplqpdJOWDGKLPBF1724-77-03 12:13:00 Test Item Value Reference Range Interpretation Comments Platelet (test code = Platelet) 177 133-450 [facility] HospitalEyqusimKUYERJGBRC1766-75-44 12:13:00 Test Item Value Reference Range Interpretation Comments MPV (test code = MPV) 7.9 7.4-10.4 [facility] HospitalLzjrfztDLAYAWFBZT7586-75-14 12:13:00 Test Item Value Reference Range Interpretation Comments RBC (test code = RBC) 3.91 4.20-5.40 [facility] HospitalOnhhuqzOBLQIRYWAN7471-85-98 12:13:00 Test Item Value Reference Range Interpretation Comments Hct (test code = Hct) 35.9 36.0-48.0 [facility] HospitalOvdugjpATBETUTLBB1559-63-04 12:13:00 Test Item Value Reference Range Interpretation Comments Hgb (test code = Hgb) 12.3 12.0-16.0 [facility] HospitalIpgbkkvAVARUJYHEN9427-17-04 12:13:00 Test Item Value Reference Range Interpretation [...] BUN (test code = BUN) 7 7-22 [place] 951564-05-05 12:13:00 Test Item Value Reference Range Interpretation Comments Bili Total (test code = Bili Total) 0.3 0.2-1.3 [place] 951564-05-05 12:13:00 Test Item Value Reference Range Interpretation [...] CO2 (test code = CO2) 33 24-32 [place] 951564-05-05 12:13:00 Test Item Value Reference Range Interpretation Comments Albumin Lvl (test code = Albumin Lvl) 3.3 3.5-5.0 [facility]2014-05-05 12:13:00 Test Item Value Reference Range Interpretation Comments Calcium Lvl (test code = Calcium Lvl) 8.4 8.5-10.5 [facility]2014-05-05 12:13:00 Test Item Value Reference Range Interpretation Comments Chloride Lvl (test code = Chloride Lvl) 105 95-109 [facility] HospitalDrdkmciCIAQGEZIEO3658-41-03 12:13:00 Test Item Value Reference Range Interpretation Comments Basophils # (test code 0.0 See_Comment [Aut omated message] The = Basophils #) system which generated this result tra nsmitted reference range : <=0.2. The reference r jamaica was not used to int erpret this result as normal/abnormal . [facility] HospitalUlzgpycFJPPZAMWKP4833-25-26 12:13:00 Test Item Value Reference Range Interpretation Comments Segs (test code = Segs) 63.5 45.0-75.0 [facility] HospitalXxpvmmzNNRFLNDBOC7990-56-52 12:13:00 Test Item Value Reference Range Interpretation Comments Monocytes # (test code 0.3 See_Comment [Aut omated message] The = Monocytes #) system which generated this result tra nsmitted reference range : <=0.8. The reference r jamaica was not used to int erpret this result as normal/abnormal . [facility] HospitalJcufgwqGLLFEPKEEE7000-03-08 12:13:00 Test Item Value Reference Range Interpretation Comments Basophils (test code = 0.2 See_Comment [Aut omated message] The Basophils) system which ge nerated this result tra nsmitted reference range : <=1.0. The reference r jamaica was not used to int erpret this result as normal/abnormal . [facility] HospitalBklekxmHHIKTVEPYB4529-43-99 12:13:00 Test Item Value Reference Range Interpretation Comments Lymphocytes # (test code = Lymphocytes 1.5 1.0-5.5 #) [facility] HospitalRhagijiHIPQXYSWUR3129-92-30 12:13:00 Test Item Value Reference Range Interpretation Comments Segs-Bands # (test code = Segs-Bands #) 3.3 1.5-8.1 [place] 054344-05-05 12:13:00 Test Item Value Reference Range Interpretation Comments Eosinophils # (test code 0.1 See_Comment [A utomated message] The = Eosinophils #) system whic h generated this result tra nsmitted reference range : <=0.5. The reference r jamaica was not used to int erpret this result as normal/abnormal . [facility] HospitalIddkkhhRXIZOFRUIR2655-75-04 12:13:00 Test Item Value Reference Range Interpretation Comments Lymphocytes (test code = Lymphocytes) 28.9 20.0-40.0 [facility] HospitalWbktdgxBQERHKLCYS7036-54-47 12:13:00 Test Item Value Reference Range Interpretation Comments Monocytes (test code = Monocytes) 6.2 2.0-12.0 [facility] HospitalWjyylcrAXMUQQARGM7363-39-92 12:13:00 Test Item Value Reference Range Interpretation Comments Eosinophils (test code = 1.2 See_Comment [A utomated message] The Eosinophils) system which ge nerated this result tra nsmitted reference range : <=4.0. The reference r jamaica was not used to int erpret this result as normal/abnormal . [facility] HospitalJdioernNOEQOZZTYU9873-05-28 12:13:00 Test Item Value Reference Range Interpretation Comments MCHC (test code = MCHC) 34.3 32.0-36.0 [facility] HospitalUvgdgtoKMODKIICWI9417-17-13 12:13:00 Test Item Value Reference Range Interpretation Comments RDW (test code = RDW) 16.5 11.5-14.5 [facility] HospitalVpzxapaNJMSLOOYLS5582-71-64 12:13:00 Test Item Value Reference Range Interpretation Comments MCH (test code = MCH) 31.5 pg 27.0-31.0 [facility] HospitalDtzvxicAHDKPXIMHY5540-77-62 12:13:00 Test Item Value Reference Range Interpretation Comments MCV (test code = MCV) 91.9 81.0-99.0 [facility] HospitalErosbjtRBZITETYYQ9711-06-29 12:13:00 Test Item Value Reference Range Interpretation Comments Platelet (test code = Platelet) 177 133-450 [facility] HospitalAksbyckOPHBBOHOSH7531-64-82 12:13:00 Test Item Value Reference Range Interpretation Comments MPV (test code = MPV) 7.9 7.4-10.4 [facility] HospitalEirezmsIWXAGCZGMY9496-62-09 12:13:00 Test Item Value Reference Range Interpretation Comments RBC (test code = RBC) 3.91 4.20-5.40 [facility] HospitalNettxowNQCTCJMWFZ4678-78-69 12:13:00 Test Item Value Reference Range Interpretation Comments Hct (test code = Hct) 35.9 36.0-48.0 [facility] HospitalSwvdjthMQQTZSCGME8232-73-21 12:13:00 Test Item Value Reference Range Interpretation Comments Hgb (test code = Hgb) 12.3 12.0-16.0 [facility] HospitalOqlspmsJUSLXPPBZO1126-71-75 12:13:00 Test Item Value Reference Range Interpretation [...] BUN (test code = BUN) 7 7-22 [place] 951564-05-05 12:13:00 Test Item Value Reference Range Interpretation Comments Bili Total (test code = Bili Total) 0.3 0.2-1.3 [place] 951564-05-05 12:13:00 Test Item Value Reference Range Interpretation Comments Alk Phos (test code = Alk Phos) 71 39-136 [place] 951564-05-05 12:13:00 Test Item Value Reference Range Interpretation Comments AST (test code = AST) 21 See_Comment [Auto mated message] The system which ge nerated this result transmit ulysses reference range : <=37. The reference range was not used to interpr et this result as sharron l/abnormal. [place] 951564-05-05 12:13:00 Test Item Value Reference Range Interpretation [...] (test code = Total 6.1 6.4-8.4 Protein) [place] 951564-05-05 12:13:00 Test Item Value Reference Range Interpretation Comments CO2 (test code = CO2) 33 24-32 [place] 951564-05-05 12:13:00 Test Item Value Reference Range Interpretation Comments Albumin Lvl (test code = Albumin Lvl) 3.3 3.5-5.0 [facility]2014-05-05 12:13:00 Test Item Value Reference Range Interpretation Comments Calcium Lvl (test code = Calcium Lvl) 8.4 8.5-10.5 [facility]2014-05-05 12:13:00 Test Item Value Reference Range Interpretation Comments Chloride Lvl (test code = Chloride Lvl) 105 95-109 [facility] HospitalHxqgbveVODKEWIGLU7220-99-39 12:13:00 Test Item Value Reference Range Interpretation Comments Basophils # (test code 0.0 See_Comment [Aut omated message] The = Basophils #) system which generated this result tra nsmitted reference range : <=0.2. The reference r jamaica was not used to int erpret this result as normal/abnormal . [facility] HospitalWghboatXRAOLTNYCH6668-03-74 12:13:00 Test Item Value Reference Range Interpretation Comments Segs (test code = Segs) 63.5 45.0-75.0 [facility] HospitalFhppijmKUYXWCHSYL9382-81-83 12:13:00 Test Item Value Reference Range Interpretation Comments Monocytes # (test code 0.3 See_Comment [Aut omated message] The = Monocytes #) system which generated this result tra nsmitted reference range : <=0.8. The reference r jamaica was not used to int erpret this result as normal/abnormal . [facility] HospitalPbqnlfsNGZHILVNCB5508-15-63 12:13:00 Test Item Value Reference Range Interpretation Comments Basophils (test code = 0.2 See_Comment [Aut omated message] The Basophils) system which ge nerated this result tra nsmitted reference range : <=1.0. The reference r jamaica was not used to int erpret this result as normal/abnormal . [facility] HospitalMeflmwdXPVYPZXTFU0019-23-95 12:13:00 Test Item Value Reference Range Interpretation Comments Lymphocytes # (test code = Lymphocytes 1.5 1.0-5.5 #) [facility] HospitalMkdmpedQXBCBGVCDR2652-45-74 12:13:00 Test Item Value Reference Range Interpretation Comments Segs-Bands # (test code = Segs-Bands #) 3.3 1.5-8.1 [facility] HospitalDeyzokcYZYXTXJCHU6592-03-98 12:13:00 Test Item Value Reference Range Interpretation Comments Eosinophils # (test code 0.1 See_Comment [A utomated message] The = Eosinophils #) system whic h generated this result tra nsmitted reference range : <=0.5. The reference r jamaica was not used to int erpret this result as normal/abnormal . [facility] HospitalCqxerjbYHQOHJDOYT2606-58-57 12:13:00 Test Item Value Reference Range Interpretation Comments Lymphocytes (test code = Lymphocytes) 28.9 20.0-40.0 [facility] HospitalNkzrtqeXXMRVXQSQT3312-70-70 12:13:00 Test Item Value Reference Range Interpretation Comments Monocytes (test code = Monocytes) 6.2 2.0-12.0 [facility] HospitalMqytekdZCSWJGXZKL9820-91-27 12:13:00 Test Item Value Reference Range Interpretation Comments Eosinophils (test code = 1.2 See_Comment [A utomated message] The Eosinophils) system which ge nerated this result tra nsmitted reference range : <=4.0. The reference r jamaica was not used to int erpret this result as normal/abnormal . [facility] HospitalIajsrzfPHHQEGPWOY6075-22-79 12:13:00 Test Item Value Reference Range Interpretation Comments MCHC (test code = MCHC) 34.3 32.0-36.0 [facility] HospitalUmhjcgnTBRYSRBAGU2047-09-15 12:13:00 Test Item Value Reference Range Interpretation Comments RDW (test code = RDW) 16.5 11.5-14.5 [facility] HospitalDwfsfjvJEAGOEFURW0824-95-49 12:13:00 Test Item Value Reference Range Interpretation Comments MCH (test code = MCH) 31.5 pg 27.0-31.0 [facility] HospitalIwymfkgVSVDJEQEGS9521-47-91 12:13:00 Test Item Value Reference Range Interpretation Comments MCV (test code = MCV) 91.9 81.0-99.0 [facility]XmcgkzfMQFXONBQZO7741-78-43 12:13:00 Test Item Value Reference Range Interpretation Comments Platelet (test code = Platelet) 177 133-450 [facility]UrtyvvlPFXNZTMQEW0886-75-11 12:13:00 Test Item Value Reference Range Interpretation Comments MPV (test code = MPV) 7.9 7.4-10.4 [facility] HospitalGkillafAJWOHSOTIG7641-41-24 12:13:00 Test Item Value Reference Range Interpretation Comments RBC (test code = RBC) 3.91 4.20-5.40 [facility] HospitalPtukkbcIXIZKMRBWG4549-56-21 12:13:00 Test Item Value Reference Range Interpretation Comments Hct (test code = Hct) 35.9 36.0-48.0 [facility] HospitalBevkqcnBYAKGOZQWR7669-92-39 12:13:00 Test Item Value Reference Range Interpretation Comments Hgb (test code = Hgb) 12.3 12.0-16.0 [facility] HospitalYomwhaxYCJPPLOVNE5541-95-28 12:13:00 Test Item Value Reference Range Interpretation [...] CO2 (test code = CO2) 33 24-32 [place] 951564-05-05 12:13:00 Test Item Value Reference Range Interpretation Comments Albumin Lvl (test code = Albumin Lvl) 3.3 3.5-5.0 [facility]2014-05-05 12:13:00 Test Item Value Reference Range Interpretation Comments Calcium Lvl (test code = Calcium Lvl) 8.4 8.5-10.5 [facility]2014-05-05 12:13:00 Test Item Value Reference Range Interpretation Comments Chloride Lvl (test code = Chloride Lvl) 105 95-109 [facility] HospitalUaixgbxCIMMCBECAX9829-09-00 12:13:00 Test Item Value Reference Range Interpretation Comments Basophils # (test code 0.0 See_Comment [Aut omated message] The = Basophils #) system which generated this result tra nsmitted reference range : <=0.2. The reference r jamaica was not used to int erpret this result as normal/abnormal . [facility] HospitalJfssknqXQKASQFUKF0164-48-84 12:13:00 Test Item Value Reference Range Interpretation Comments Segs (test code = Segs) 63.5 45.0-75.0 [facility] HospitalEytovxzVVFRAGFFQP8825-92-69 12:13:00 Test Item Value Reference Range Interpretation Comments Monocytes # (test code 0.3 See_Comment [Aut omated message] The = Monocytes #) system which generated this result tra nsmitted reference range : <=0.8. The reference r jamaica was not used to int erpret this result as normal/abnormal . [facility] HospitalJfdtygbHLGURULWIJ4982-43-21 12:13:00 Test Item Value Reference Range Interpretation Comments Basophils (test code = 0.2 See_Comment [Aut omated message] The Basophils) system which ge nerated this result tra nsmitted reference range : <=1.0. The reference r jamaica was not used to int erpret this result as normal/abnormal . [facility] HospitalWphfaaxIBULDIEOAV8988-93-37 12:13:00 Test Item Value Reference Range Interpretation Comments Lymphocytes # (test code = Lymphocytes 1.5 1.0-5.5 #) [facility] HospitalAdplurqVNPSUIEXPQ0191-71-98 12:13:00 Test Item Value Reference Range Interpretation Comments Segs-Bands # (test code = Segs-Bands #) 3.3 1.5-8.1 [facility] HospitalHiqwawnOYBCJDRBBW9828-91-25 12:13:00 Test Item Value Reference Range Interpretation Comments Eosinophils # (test code 0.1 See_Comment [A utomated message] The = Eosinophils #) system whic h generated this result tra nsmitted reference range : <=0.5. The reference r jamaica was not used to int erpret this result as normal/abnormal . [facility] HospitalYcmcjnpGRXOJOVIUB3756-84-66 12:13:00 Test Item Value Reference Range Interpretation Comments Lymphocytes (test code = Lymphocytes) 28.9 20.0-40.0 [facility] HospitalUrzepbuIJTPNHVHRS3138-81-72 12:13:00 Test Item Value Reference Range Interpretation Comments Monocytes (test code = Monocytes) 6.2 2.0-12.0 [facility] HospitalImwcrrcOKURVDNLHF0004-77-36 12:13:00 Test Item Value Reference Range Interpretation Comments Eosinophils (test code = 1.2 See_Comment [A utomated message] The Eosinophils) system which ge nerated this result tra nsmitted reference range : <=4.0. The reference r jamaica was not used to int erpret this result as normal/abnormal . [facility] HospitalEaalafdLMJLEEFHQX0688-81-56 12:13:00 Test Item Value Reference Range Interpretation Comments MCHC (test code = MCHC) 34.3 32.0-36.0 [facility] HospitalWregrgoPQFAZMGRZF2214-97-99 12:13:00 Test Item Value Reference Range Interpretation Comments RDW (test code = RDW) 16.5 11.5-14.5 [facility] HospitalRcgmvrgEYUERSUTRE8898-97-45 12:13:00 Test Item Value Reference Range Interpretation Comments MCH (test code = MCH) 31.5 pg 27.0-31.0 [facility] HospitalQrtaqipKDCBIRPLCX3590-74-19 12:13:00 Test Item Value Reference Range Interpretation Comments MCV (test code = MCV) 91.9 81.0-99.0 [facility] HospitalHtzjnscXWDGZLSCHM9327-71-48 12:13:00 Test Item Value Reference Range Interpretation Comments Platelet (test code = Platelet) 177 133-450 [facility] HospitalMliqrtjZMEIIKDSDF8363-26-62 12:13:00 Test Item Value Reference Range Interpretation Comments MPV (test code = MPV) 7.9 7.4-10.4 [facility] HospitalDrochrtRAYCHYNTXH3743-81-84 12:13:00 Test Item Value Reference Range Interpretation Comments RBC (test code = RBC) 3.91 4.20-5.40 [facility] HospitalJucntngZLYUSKMJMY1928-82-69 12:13:00 Test Item Value Reference Range Interpretation Comments Hct (test code = Hct) 35.9 36.0-48.0 [facility] HospitalSqjtwzpXMONYSYZUV8609-14-63 12:13:00 Test Item Value Reference Range Interpretation Comments Hgb (test code = Hgb) 12.3 12.0-16.0 [facility] HospitalEumhfssGOOCCCVLCZ5643-56-73 12:13:00 Test Item Value Reference Range Interpretation [...] (test code = A/G Ratio) 1.2 0.7-1.6 [place] 951564-05-05 12:13:00 Test Item Value Reference Range Interpretation [...] (test code = Chloride Lvl) 105 95-109 [facility] HospitalKqsgnpvVBUCADPSPI5089-43-79 12:13:00 Test Item Value Reference Range Interpretation Comments Basophils # (test code 0.0 See_Comment [Aut omated message] The = Basophils #) system which generated this result tra nsmitted reference range : <=0.2. The reference r jamaica was not used to int erpret this result as normal/abnormal . [facility] HospitalSwpxwshGXICSDMJZV9576-98-64 12:13:00 Test Item Value Reference Range Interpretation Comments Segs (test code = Segs) 63.5 45.0-75.0 [facility] HospitalJbqcflrPTIZUQCDLT7965-32-33 12:13:00 Test Item Value Reference Range Interpretation Comments Monocytes # (test code 0.3 See_Comment [Aut omated message] The = Monocytes #) system which generated this result tra nsmitted reference range : <=0.8. The reference r jamaica was not used to int erpret this result as normal/abnormal . [facility] HospitalTjcxztiKHNGCHGGVP3933-43-36 12:13:00 Test Item Value Reference Range Interpretation Comments Basophils (test code = 0.2 See_Comment [Aut omated message] The Basophils) system which ge nerated this result tra nsmitted reference range : <=1.0. The reference r jamaica was not used to int erpret this result as normal/abnormal . [facility] HospitalLuwpdakJZSWWHIFJQ7780-36-74 12:13:00 Test Item Value Reference Range Interpretation Comments Lymphocytes # (test code = Lymphocytes 1.5 1.0-5.5 #) [facility] HospitalBjjiabuYRJELEVRQK8965-51-59 12:13:00 Test Item Value Reference Range Interpretation Comments Segs-Bands # (test code = Segs-Bands #) 3.3 1.5-8.1 [facility] HospitalQcrssyjYMAAZOOUKQ4786-63-37 12:13:00 Test Item Value Reference Range Interpretation Comments Eosinophils # (test code 0.1 See_Comment [A utomated message] The = Eosinophils #) system whic h generated this result tra nsmitted reference range : <=0.5. The reference r jamaica was not used to int erpret this result as normal/abnormal . [facility] HospitalSnhuqxfPQQJOJYMKR5327-11-41 12:13:00 Test Item Value Reference Range Interpretation Comments Lymphocytes (test code = Lymphocytes) 28.9 20.0-40.0 [facility] HospitalNpjqhkuYDKCJRROKO3880-27-12 12:13:00 Test Item Value Reference Range Interpretation Comments Monocytes (test code = Monocytes) 6.2 2.0-12.0 [facility] HospitalLrouavbGDCKDNHZQS4017-80-22 12:13:00 Test Item Value Reference Range Interpretation Comments Eosinophils (test code = 1.2 See_Comment [A utomated message] The Eosinophils) system which ge nerated this result tra nsmitted reference range : <=4.0. The reference r jamaica was not used to int erpret this result as normal/abnormal . [facility] HospitalQvmxjmzJRDOANHLSO4449-06-10 12:13:00 Test Item Value Reference Range Interpretation Comments MCHC (test code = MCHC) 34.3 32.0-36.0 [facility] HospitalDhfgixgMMKNFXXVDN2159-02-56 12:13:00 Test Item Value Reference Range Interpretation Comments RDW (test code = RDW) 16.5 11.5-14.5 [facility] HospitalLdqhizuRGFFGBDTEA9399-22-36 12:13:00 Test Item Value Reference Range Interpretation Comments MCH (test code = MCH) 31.5 pg 27.0-31.0 [facility] HospitalDacmchyFVRPWOISWF6041-07-17 12:13:00 Test Item Value Reference Range Interpretation Comments MCV (test code = MCV) 91.9 81.0-99.0 [facility] HospitalOoiezxyPROPSRVOYR8262-39-04 12:13:00 Test Item Value Reference Range Interpretation Comments Platelet (test code = Platelet) 177 133-450 [facility] HospitalYluiiplETEHOEPIYM7569-09-12 12:13:00 Test Item Value Reference Range Interpretation Comments MPV (test code = MPV) 7.9 7.4-10.4 [facility] HospitalAbgqcovYTGXZHFVIA2760-07-52 12:13:00 Test Item Value Reference Range Interpretation Comments RBC (test code = RBC) 3.91 4.20-5.40 [facility] HospitalBdzgnyaUTCUBZDPSX0402-95-88 12:13:00 Test Item Value Reference Range Interpretation Comments Hct (test code = Hct) 35.9 36.0-48.0 [facility] HospitalIerwdicXQYJSBJMIQ5458-22-60 12:13:00 Test Item Value Reference Range Interpretation Comments Hgb (test code = Hgb) 12.3 12.0-16.0 [facility] HospitalOxlafkyCDLDXXMHCY2192-89-44 12:13:00 Test Item Value Reference Range Interpretation [...] BUN (test code = BUN) 7 7-22 [place] 951564-05-05 12:13:00 Test Item Value Reference Range Interpretation [...] (test code = Chloride Lvl) 105 95-109 [facility] HospitalZsperklSARUGHFAMH2447-00-30 12:13:00 Test Item Value Reference Range Interpretation Comments Basophils # (test code 0.0 See_Comment [Aut omated message] The = Basophils #) system which generated this result tra nsmitted reference range : <=0.2. The reference r jamaica was not used to int erpret this result as normal/abnormal . [facility] HospitalUzeqvieTTFBNHNKAL6296-05-58 12:13:00 Test Item Value Reference Range Interpretation Comments Segs (test code = Segs) 63.5 45.0-75.0 [facility] HospitalQdctrewOKMOATUIZP1762-53-45 12:13:00 Test Item Value Reference Range Interpretation Comments Monocytes # (test code 0.3 See_Comment [Aut omated message] The = Monocytes #) system which generated this result tra nsmitted reference range : <=0.8. The reference r jamaica was not used to int erpret this result as normal/abnormal . [facility]JsptvweGNHTHRZRLA3583-09-83 12:13:00 Test Item Value Reference Range Interpretation Comments Basophils (test code = 0.2 See_Comment [Aut omated message] The Basophils) system which ge nerated this result tra nsmitted reference range : <=1.0. The reference r jamaica was not used to int erpret this result as normal/abnormal . [facility] HospitalWhvsbhmOBKFWCYEYZ1562-62-71 12:13:00 Test Item Value Reference Range Interpretation Comments Lymphocytes # (test code = Lymphocytes 1.5 1.0-5.5 #) [facility] HospitalIvltsjfBSIGBQEVLR8833-93-67 12:13:00 Test Item Value Reference Range Interpretation Comments Segs-Bands # (test code = Segs-Bands #) 3.3 1.5-8.1 [facility] HospitalLtorhqoBSGNYWISXH4402-42-56 12:13:00 Test Item Value Reference Range Interpretation Comments Eosinophils # (test code 0.1 See_Comment [A utomated message] The = Eosinophils #) system whic h generated this result tra nsmitted reference range : <=0.5. The reference r jamaica was not used to int erpret this result as normal/abnormal . [facility] HospitalPajpyuuUNKAMXNZWJ6756-90-70 12:13:00 Test Item Value Reference Range Interpretation Comments Lymphocytes (test code = Lymphocytes) 28.9 20.0-40.0 [facility] HospitalCwnfehdRMIHOQPKPG2918-76-99 12:13:00 Test Item Value Reference Range Interpretation Comments Monocytes (test code = Monocytes) 6.2 2.0-12.0 [facility] HospitalPpqeatmWESFINIPOW6847-69-48 12:13:00 Test Item Value Reference Range Interpretation Comments Eosinophils (test code = 1.2 See_Comment [A utomated message] The Eosinophils) system which ge nerated this result tra nsmitted reference range : <=4.0. The reference r jamaica was not used to int erpret this result as normal/abnormal . [facility] HospitalUkhnncrQUBBPSYXQB4648-85-90 12:13:00 Test Item Value Reference Range Interpretation Comments MCHC (test code = MCHC) 34.3 32.0-36.0 [facility] HospitalYpkebjmVUTHUQXAIW2878-26-91 12:13:00 Test Item Value Reference Range Interpretation Comments RDW (test code = RDW) 16.5 11.5-14.5 [facility] HospitalLnskuvqQGJQOBZGHO7234-67-40 12:13:00 Test Item Value Reference Range Interpretation Comments MCH (test code = MCH) 31.5 pg 27.0-31.0 [facility] HospitalOkkfckjWVQEMRZNAM5601-28-38 12:13:00 Test Item Value Reference Range Interpretation Comments MCV (test code = MCV) 91.9 81.0-99.0 [facility] HospitalOwbhswoUYUFDXESFU4926-29-80 12:13:00 Test Item Value Reference Range Interpretation Comments Platelet (test code = Platelet) 177 133-450 [facility] HospitalKljwfmtZZJFDHBSSY4677-20-53 12:13:00 Test Item Value Reference Range Interpretation Comments MPV (test code = MPV) 7.9 7.4-10.4 [facility] HospitalDmkyesiHIIEVSRGMH3740-63-02 12:13:00 Test Item Value Reference Range Interpretation Comments RBC (test code = RBC) 3.91 4.20-5.40 [facility] HospitalKabmxbpIFZMCMJLVJ8408-83-41 12:13:00 Test Item Value Reference Range Interpretation Comments Hct (test code = Hct) 35.9 36.0-48.0 [facility] HospitalUanyjdcOBXOMTRSVS8883-10-18 12:13:00 Test Item Value Reference Range Interpretation Comments Hgb (test code = Hgb) 12.3 12.0-16.0 [facility] HospitalHcnboriXVHMWGPWMY3364-60-65 12:13:00 Test Item Value Reference Range Interpretation [...] CO2 (test code = CO2) 33 24-32 [place] 951564-05-05 12:13:00 Test Item Value Reference Range Interpretation Comments Albumin Lvl (test code = Albumin Lvl) 3.3 3.5-5.0 [facility]2014-05-05 12:13:00 Test Item Value Reference Range Interpretation Comments Calcium Lvl (test code = Calcium Lvl) 8.4 8.5-10.5 [facility]2014-05-05 12:13:00 Test Item Value Reference Range Interpretation Comments Chloride Lvl (test code = Chloride Lvl) 105 95-109 [facility] HospitalYuwhhhrISFVQMWGOU6516-78-08 12:13:00 Test Item Value Reference Range Interpretation Comments Basophils # (test code 0.0 See_Comment [Aut omated message] The = Basophils #) system which generated this result tra nsmitted reference range : <=0.2. The reference r jamaica was not used to int erpret this result as normal/abnormal . [facility] HospitalRbpkjeeLKEJHOECOH1891-50-85 12:13:00 Test Item Value Reference Range Interpretation Comments Segs (test code = Segs) 63.5 45.0-75.0 [facility] HospitalLwxamyeCNOUFVIXYP6390-43-93 12:13:00 Test Item Value Reference Range Interpretation Comments Monocytes # (test code 0.3 See_Comment [Aut omated message] The = Monocytes #) system which generated this result tra nsmitted reference range : <=0.8. The reference r jamaica was not used to int erpret this result as normal/abnormal . [facility] HospitalAsbpdjhNGFXRESPRE0501-26-99 12:13:00 Test Item Value Reference Range Interpretation Comments Basophils (test code = 0.2 See_Comment [Aut omated message] The Basophils) system which ge nerated this result tra nsmitted reference range : <=1.0. The reference r jamaica was not used to int erpret this result as normal/abnormal . [facility] HospitalWrqlvmsWDFBZZDFRO9121-39-04 12:13:00 Test Item Value Reference Range Interpretation Comments Lymphocytes # (test code = Lymphocytes 1.5 1.0-5.5 #) [facility] HospitalYachtusXJEZANIHJC1475-57-71 12:13:00 Test Item Value Reference Range Interpretation Comments Segs-Bands # (test code = Segs-Bands #) 3.3 1.5-8.1 [facility] HospitalYehynmjEHKLYCPUOY8838-83-36 12:13:00 Test Item Value Reference Range Interpretation Comments Eosinophils # (test code 0.1 See_Comment [A utomated message] The = Eosinophils #) system wh h generated this result tra nsmitted reference range : <=0.5. The reference r jamaica was not used to int erpret this result as normal/abnormal . [facility] HospitalLlqhujeSGVXUUHZRG8133-39-96 12:13:00 Test Item Value Reference Range Interpretation Comments Lymphocytes (test code = Lymphocytes) 28.9 20.0-40.0 [facility] HospitalTquqcwmDMCYKEPPOF8113-00-37 12:13:00 Test Item Value Reference Range Interpretation Comments Monocytes (test code = Monocytes) 6.2 2.0-12.0 [facility] HospitalOycmmocYSBVCNJMIX4114-95-03 12:13:00 Test Item Value Reference Range Interpretation Comments Eosinophils (test code = 1.2 See_Comment [A utomated message] The Eosinophils) system which ge nerated this result tra nsmitted reference range : <=4.0. The reference r jamaica was not used to int erpret this result as normal/abnormal . [facility] HospitalCxeaueyOREVLTJVPL2133-56-27 12:13:00 Test Item Value Reference Range Interpretation Comments MCHC (test code = MCHC) 34.3 32.0-36.0 [facility] HospitalPqvhqkpEBDBRKAQWY4278-20-27 12:13:00 Test Item Value Reference Range Interpretation Comments RDW (test code = RDW) 16.5 11.5-14.5 [facility] HospitalMhhrpolDRQOYOSNUV8826-13-81 12:13:00 Test Item Value Reference Range Interpretation Comments MCH (test code = MCH) 31.5 pg 27.0-31.0 [facility] HospitalQaiwqxqHKNXDYOEWI0153-10-23 12:13:00 Test Item Value Reference Range Interpretation Comments MCV (test code = MCV) 91.9 81.0-99.0 [facility] HospitalJbnkoflZPGHLMKSCN9877-58-28 12:13:00 Test Item Value Reference Range Interpretation Comments Platelet (test code = Platelet) 177 133-450 [facility] HospitalEtinckhHPPZFMZPGT6654-42-66 12:13:00 Test Item Value Reference Range Interpretation Comments MPV (test code = MPV) 7.9 7.4-10.4 [facility] HospitalDxcvvldRZNDXLVFQB9037-55-23 12:13:00 Test Item Value Reference Range Interpretation Comments RBC (test code = RBC) 3.91 4.20-5.40 [facility] HospitalXgyxmaaLBAYLAFUZD6146-94-74 12:13:00 Test Item Value Reference Range Interpretation Comments Hct (test code = Hct) 35.9 36.0-48.0 [facility] HospitalFzjsborSPJDUFRIRU6153-89-09 12:13:00 Test Item Value Reference Range Interpretation Comments Hgb (test code = Hgb) 12.3 12.0-16.0 [facility] HospitalPsesztbSFRTINHGRI0449-57-30 12:13:00 Test Item Value Reference Range Interpretation [...] (test code = A/G Ratio) 1.2 0.7-1.6 [place] 951564-05-05 12:13:00 Test Item Value Reference Range Interpretation Comments B/C Ratio (test code = B/C Ratio) 10 6-25 [facility]2014-05-05 12:13:00 Test Item Value Reference Range Interpretation Comments AGAP (test code = AGAP) 6.9 10.0-20.0 [facility]2014-05-05 12:13:00 Test Item Value Reference Range Interpretation Comments eGFR (test code = eGFR) 101 [place] 951564-05-05 12:13:00 Test Item Value Reference Range Interpretation Comments Glucose Lvl (test code = Glucose Lvl) 84 70-99 [place] 951564-05-05 12:13:00 Test Item Value Reference Range Interpretation Comments Potassium Lvl (test code = Potassium 3.9 3.5-5.1 Lvl) [place] 951564-05-05 12:13:00 Test Item Value Reference Range Interpretation Comments Sodium Lvl (test code = Sodium Lvl) 141 135-145 [place] 951564-05-05 12:13:00 Test Item Value Reference Range Interpretation Comments Creatinine Lvl (test code = Creatinine 0.7 0.5-1.4 Lvl) [facility]2014-05-05 12:13:00 Test Item Value Reference Range Interpretation Comments BUN (test code = BUN) 7 7-22 [place] 951564-05-05 12:13:00 Test Item Value Reference Range Interpretation Comments Bili Total (test code = Bili Total) 0.3 0.2-1.3 [place] 951564-05-05 12:13:00 Test Item Value Reference Range Interpretation [...] CO2 (test code = CO2) 33 24-32 [place] 951564-05-05 12:13:00 Test Item Value Reference Range Interpretation Comments Albumin Lvl (test code = Albumin Lvl) 3.3 3.5-5.0 [facility]2014-05-05 12:13:00 Test Item Value Reference Range Interpretation Comments Calcium Lvl (test code = Calcium Lvl) 8.4 8.5-10.5 [facility]2014-05-05 12:13:00 Test Item Value Reference Range Interpretation Comments Chloride Lvl (test code = Chloride Lvl) 105 95-109 [facility] HospitalDkkiwjyJCDDDWAFYA8177-33-99 12:13:00 Test Item Value Reference Range Interpretation Comments Basophils # (test code 0.0 See_Comment [Aut omated message] The = Basophils #) system which generated this result tra nsmitted reference range : <=0.2. The reference r jamaica was not used to int erpret this result as normal/abnormal . [facility] HospitalGjjwwprNMXZPZWDKG8789-19-12 12:13:00 Test Item Value Reference Range Interpretation Comments Segs (test code = Segs) 63.5 45.0-75.0 [facility] HospitalQsjdfrpKYWAMSATOZ5774-95-00 12:13:00 Test Item Value Reference Range Interpretation Comments Monocytes # (test code 0.3 See_Comment [Aut omated message] The = Monocytes #) system which generated this result tra nsmitted reference range : <=0.8. The reference r jamaica was not used to int erpret this result as normal/abnormal . [facility] HospitalMqmknxnPYMPKYWNMC4351-42-90 12:13:00 Test Item Value Reference Range Interpretation Comments Basophils (test code = 0.2 See_Comment [Aut omated message] The Basophils) system which ge nerated this result tra nsmitted reference range : <=1.0. The reference r jamaica was not used to int erpret this result as normal/abnormal . [facility] HospitalBgmwgzgHYUYDMFLWM1486-16-04 12:13:00 Test Item Value Reference Range Interpretation Comments Lymphocytes # (test code = Lymphocytes 1.5 1.0-5.5 #) [facility] HospitalMkfbvtiABETHWPIZR5820-37-01 12:13:00 Test Item Value Reference Range Interpretation Comments Segs-Bands # (test code = Segs-Bands #) 3.3 1.5-8.1 [facility] HospitalUoiestjLULAPEIIML4366-43-76 12:13:00 Test Item Value Reference Range Interpretation Comments Eosinophils # (test code 0.1 See_Comment [A utomated message] The = Eosinophils #) system whic h generated this result tra nsmitted reference range : <=0.5. The reference r jamaica was not used to int erpret this result as normal/abnormal . [facility] HospitalKsiuwehAUNTZXWCJI7193-25-57 12:13:00 Test Item Value Reference Range Interpretation Comments Lymphocytes (test code = Lymphocytes) 28.9 20.0-40.0 [facility] HospitalHkvbvhhLYZLJKXOGZ5977-94-73 12:13:00 Test Item Value Reference Range Interpretation Comments Monocytes (test code = Monocytes) 6.2 2.0-12.0 [facility] HospitalGfqypxfILWYGLDCMI1741-25-95 12:13:00 Test Item Value Reference Range Interpretation Comments Eosinophils (test code = 1.2 See_Comment [A utomated message] The Eosinophils) system which ge nerated this result tra nsmitted reference range : <=4.0. The reference r jamaica was not used to int erpret this result as normal/abnormal . [facility] HospitalWcofmlzHOQBIZBIAX4921-22-15 12:13:00 Test Item Value Reference Range Interpretation Comments MCHC (test code = MCHC) 34.3 32.0-36.0 [facility] HospitalKkdgkazFBIZZLKBJN4258-37-67 12:13:00 Test Item Value Reference Range Interpretation Comments RDW (test code = RDW) 16.5 11.5-14.5 [facility] HospitalAhyqjjpEIMDEYQVRI9968-36-81 12:13:00 Test Item Value Reference Range Interpretation Comments MCH (test code = MCH) 31.5 pg 27.0-31.0 [facility] HospitalVwidqitQKFNVKBATK8653-96-46 12:13:00 Test Item Value Reference Range Interpretation Comments MCV (test code = MCV) 91.9 81.0-99.0 [facility] HospitalLxhsbcoECJYOMFYDO9458-16-97 12:13:00 Test Item Value Reference Range Interpretation Comments Platelet (test code = Platelet) 177 133-450 [facility] HospitalGptakyzSVRYTPOLOQ5829-81-20 12:13:00 Test Item Value Reference Range Interpretation Comments MPV (test code = MPV) 7.9 7.4-10.4 [facility] HospitalFjnchskADNUARINPG2967-77-04 12:13:00 Test Item Value Reference Range Interpretation Comments RBC (test code = RBC) 3.91 4.20-5.40 [facility] [id number] 12:13:00 Test Item Value Reference Range Interpretation Comments Hct (test code = Hct) 35.9 36.0-48.0 [facility] [id number] 12:13:00 Test Item Value Reference Range Interpretation Comments Hgb (test code = Hgb) 12.3 12.0-16.0 [facility] [id number] 12:13:00 Test Item Value Reference Range Interpretation Comments WBC (test code = WBC) 5.1 3.7-10.4 [facility] Notes Date/Time Note Provider Source 2021 17:23:00-00:00 [id number] [address] PATIENT NAME: RO MAYNARD ADMIT DATE: 1 ACCOUNT NO: [id number] ROOM NO: [id number] AGE: 56 REPORT TYPE: CONSULTATION SEX: F ADMITTING PHYSICIAN: Jaiden Antunez MD ATTENDING PHYSICIAN: Shadi Carcamo MD CONSULTATION DATE: CONSULTING PHYSICIAN: Dawson Ramírez MD ATTENDING PHYSICIAN: Shadi Carcamo MD. REASON FOR CONSULTATION: Intractable nausea, vom iting, abdominal pain, epigastric and right upper quadrant. HISTORY OF PRESENT ILLNESS: The patient is a 56-year-old woman who has been to [facility] multiple times for similar sympt oms [...] we will try to obtain them from [facility] and plan for treatment for hepatitis C, I strong ly recommended to avoid marijuana and alcohol at this time. The patient is cleared to be discharged from GI after a small bowel follow through if no acute pathology like an obstruction is found. We will continue workup as an outpatient. WT: CON:L.BRENNA/SIDUM/NTS Conf#: [id number]/DID#: [id number] (ADDENDUM) Dictated By: Dawson Ramírez MD WT: CON:L.BRENNA/SIDUM/NTS Conf#: [id number]/DID#: [id number] Authenticated by Dawson Ramírez MD On 021 01:50:51 PM at 1351 PATIENT NAME: RO MAYNARD 9001 2021 10:28:00-00:00 [facility] ([facility]) Hospitalist Progress Note REPORT#:[id number] REPORT STATUS: Signed DATE:02/26/21 TIME:1028 PATIENT: RO MAYNARD UNIT #: [id number] ROOM/BED: [address] : 63 AGE: 56 SEX: F ATTEND: Xiomara Antunez MD ADM AUTHOR: Shadi Carcamo MD * ALL edits or amendments must be made on the el [employer]/computer document * Subjective Chief Complaint: No acute [...] 0444 98.8 63 14 123/76 0.0 98 / 0432 71 95 30 02/26 0117 68 [...] % (Auto) (20.5 - 51.1 %) 28.9 Wilson % (Auto) (1.7 - 9.3 %) 5.4 Eos % (Auto) (0.0 - 6.0 %) 0.3 Baso % (Auto) (0.0 - 2.0 %) 0.3 Neut # (Auto) (1.8 - 7.6 K/mm3) 2.5 Lymph # (Auto) (0.6 - 3.2 K/mm3) 1.1 Wilson # (Auto) (0.3 - 1.1 K/mm3) 0.2 [...] choledocholithiasis. No biliar y dilatation. Impression By: [email or web address] - Shanna Redding MD Diagnosis, Assessment Plan [...] andra 2021 Patient has a history of Uqispe's esophagus Continue PPI Appreciate help from GI Getting a HIDA scan Pain control MRCP findings noted Continue home medications and titrate as needed Trend LFTs Awaiting further recommendations from GI Electronically Signed by Shadi Carcamo MD on at 1533 RPT #: [id number] END OF REPORT 2021-02-25 17:16:00-00:00 [facility] ([facility]) Hospitalist History Physical REPORT#:[id number] REPORT STATUS: Signed DATE:02/25/21 TIME:1716 PATIENT: RO MAYNARD UNIT #: [id number] ROOM/BED: [place] [address] : 63 AGE: 55 SEX: F ATTEND: Xiomara Antunez MD ADM AUTHOR: Jaiden Antunez MD * ALL edits or amendments must be made on the el [employer]/computer document * History of Present Illness HPI Chief complaint: Right upper quadrant pain PCP: PCP: Kamari Escalante MD HPI: This is 55-year-old lady [...] Crohn's disease diagnosed 15 years ago in [place] but for the pa 4 years she has not been able to get her treated since she moved to [place] She also has rheumatoid arthritis for which she is on chronic prednisone. History Past Medical Surgical Hx Additional medical history: Crohn's disease diagnosed 15 years ago as per patient Rheumatoid arthritis Sleep apnea Dyslipidemia Hypertension [...] B/P 130/69 02/25 1304 B/P Mean 89 / 1304 O2 Delivery Room air 02/25 1304 Temp 36.5 02/25 1304 Pulse 72 02/25 1304 Resp 18 02/25 1304 Patient Weight and BMI Weight (kg): [...] % (Auto) (20.5 - 51.1 %) 33.6 Wilson % (Auto) (1.7 - 9.3 %) 7.4 Eos % (Auto) (0.0 - 6.0 %) 0.8 Baso % (Auto) (0.0 - 2.0 %) 0.2 Neut # (Auto) (1.8 - 7.6 K/mm3) 3.1 Lymph # (Auto) (0.6 - 3.2 K/mm3) 1.8 Wilson # (Auto) (0.3 - 1.1 K/mm3) 0.4 [...] - 7.0 pH UNITS) 7.0 Ur Specific Downey (1.005 - 1.030 SG) <=1.005 Urine Protein [...] positive Extremities no pedal edema pulses palpable [employer] alert oriented x3 moving all 4 extremities [...] Antunez MD on at 1725 RPT #: [id number] END OF REPORT 2021-02-25 13:33:00-00:00 [facility] ([facility]) EMERGENCY PROVIDER REPORT REPORT#:[id number] REPORT STATUS: Signed DATE:02/25/21 TIME:1333 PATIENT: RO MAYNARD UNIT #: [id number] ROOM/BED: [place] [address] : 61 AGE: 55 SEX: F PCP PHYS: Willian Escalante MD SERVICE AUTHOR: Bhavna Mulligan * ALL edits or amendments must be made on the el ectronic/computer document * HPI-Abd Pain F 40 and Over General Initial Greet Date/Time 02/25/21 1309 Presentation Chief Complaint Abdominal pain Sudden in Onset? No Free Text HPI Notes Free Text HPI Notes 55-year-old female past [facility] history of rheumatoid arthritis, Crohn's disease , hepatitis C status post hy sterectomy, appendectomy, and bladder sling surgery reports to ED complaining of right-sided abdominal pain for the past week which is getting worse she says it now radiates to her periumbilical area. She has associated nausea, vomiting, and diarrhea. She w as seen and evaluated at [facility] yesterday where s he had an ultrasound and a CT. Patient states there were no gallstones but does not note any further particulars on the results. She followed up with her PCP, Dr John Escalante, today in clinic who advised her to come to [facility] ER for further work-up and asked the [...] % (Auto) (20.5 - 51.1 %) 33.6 Wilson % (Auto) (1.7 - 9.3 %) 7.4 Eos % (Auto) (0.0 - 6.0 %) 0.8 Baso % (Auto) (0.0 - 2.0 %) 0.2 Neut # (Auto) (1.8 - 7.6 K/mm3) 3.1 Lymph # (Auto) (0.6 - 3.2 K/mm3) 1.8 Wilson # (Auto) (0.3 - 1.1 K/mm3) 0.4 [...] - 7.0 pH UNITS) 7.0 Ur Specific Downey (1.005 - 1.030 SG) <=1.005 Urine Protein [...] Consultation Consultation Referral/Consult Name Dawson Ramírez MD Transitions Manager Called Gastroenterology Requested Call Time 1448 Requested Call Date 02/25/21 Call Returned Call returned Call Returned Time 1505 Call Returned Date 02/25/21 Transitions Manager Will see patient, Agrees with plan Free Text Consult Notes 15:20: called back with imaging results from [facility]. Wants patient admitted and MRCP, he will consult. Patient Discharge Departure Vital Signs/Condition Vital Signs First Documented: Result Date Time Pulse Ox 100 02/25 1304 B/P 130/69 02/25 1304 B/P Mean 89 / 1304 O2 Delivery Room air / 1304 Temp 36.5 07/ 1304 Pulse 72 / 1304 Resp 18 02/25 1304 Last Documented: Result Date Time Pulse Ox 100 07/ 1304 B/P 130/69 07/ 1304 B/P Mean 89 07/ 1304 O2 Delivery Room air 07/ 1304 Temp 36.5 07/ 1304 Pulse 72 / 1304 Resp 18 02/25 1304 All vital [...] Mulligan on 09/17 at 1536 RPT #: [id number] END OF REPORT 2021-02-25 13:33:00-00:00 [facility] ([facility]) EMERGENCY PROVIDER REPORT REPORT#:[id number] REPORT STATUS: Signed DATE:02/25/21 TIME:1333 PATIENT: RO MAYNARD UNIT #: [id number] ROOM/BED: [place] [address] : 61 AGE: 55 SEX: F PCP PHYS: Willian Escalante MD SERVICE AUTHOR: Bhavna Mulligan * ALL edits or amendments must be made on the el [employer]/computer document * EseBhavna 02/25/21 1333: HPI-Abd Pain F 40 and Over General Initial Greet Date/Time 02/25/21 1309 Presentation Chief Complaint Abdominal pain Sudden in Onset? No Free Text HPI Notes Free Text HPI Notes 55-year-old female past [facility] history of rheumatoid arthritis, Crohn's disease , hepatitis C status post hy sterectomy, appendectomy, and bladder sling surgery reports to ED complaining of right-sided abdominal pain for the past week which is getting worse she says it now radiates to her periumbilical area. She has associated nausea, vomiting, and diarrhea. She w as seen and evaluated at [facility] yesterday where s he had an ultrasound and a CT. Patient states there were no gallstones but does not note any further particulars on the results. She followed up with her PCP, Dr John Escalante, today in clinic who advised her to come to [facility] ER for further work-up and asked the [...] Documented: Result Date Time Pulse Ox 100 07 1304 B/P 130/69 02/25 1304 B/P Mean [...] % (Auto) (20.5 - 51.1 %) 33.6 Wilson % (Auto) (1.7 - 9.3 %) 7.4 Eos % (Auto) (0.0 - 6.0 %) 0.8 Baso % (Auto) (0.0 - 2.0 %) 0.2 Neut # (Auto) (1.8 - 7.6 K/mm3) 3.1 Lymph # (Auto) (0.6 - 3.2 K/mm3) 1.8 Wilson # (Auto) (0.3 - 1.1 K/mm3) 0.4 Eos # (Auto) (0.0 - 0.4 K/mm3) 0.0 Baso # (Auto) (0.0 - 0.1 K/mm3) 0.0 Abs Immat Gran (auto) (0.00 - 0.03 x10 3/uL) 0 .03 Add Manual Diff (CRITERIA DIFF/SCN) NO Immature Gran % (0.0 - 5.0 %) 0.6 Nucleated RBC % (0.0 - 1.0 /100WBC%) 0.0 Platelet Estimate (ADEQUATE THOUSAND) ADEQUATE Plt Morphology Comment NORMAL Serology SARS-CoV-2 Ag (Rapid) (Negative) NEGATIVE 02/25 1320 Urines Urine Color (YEL/STRAW discript) YELLOW Urine Appearance (CLEAR discript) CLEAR Urine pH (5.0 - 7.0 pH UNITS) 7.0 Ur Specific Downey (1.005 - 1.030 SG) <=1.005 Urine Protein [...] Consultation Consultation Referral/Consult Name Dawson Ramírez MD Transitions Manager Called Gastroenterology Requested Call Time 1448 Requested Call Date 02/25/21 Call Returned Call returned Call Returned Time 1505 Call Returned Date 02/25/21 Transitions Manager Will see patient, Agrees with plan Free Text Consult Notes 15:20: called back with imaging results from [facility]. Wants patient admitted and MRCP, he will consult. Patient Discharge Departure Vital Signs/Condition Vital Signs First Documented: Result Date Time Pulse Ox 100 / 1304 B/P 130/69 07/ 1304 B/P Mean 89 07/ 1304 O2 Delivery Room air 07/ 1304 Temp 36.5 07/ 1304 Pulse 72 07/ 1304 Resp 18 02/25 1304 Last Documented: Result Date Time Pulse Ox 100 07/ 1304 B/P 130/69 / 1304 B/P Mean 89 07/ 1304 O2 Delivery Room air 07/ 1304 Temp 36.5 07/ 1304 Pulse 72 [...] p ractitioner taking over this patient's care. Ezekiel Prakash 02/25/21 1739: Past Medical History - Adult Home Medications Reported Medications predniSONE 10 MG PO DAILY ATORVASTATIN (LIPITOR) 20 MG PO DAILY LOSARTAN (COZAAR) 50 MG PO DAILY PARoxetine HCL (PAXIL) 10 MG PO QAM Patient Discharge Departure Supervising Physician Note MidLv Saw Pt Alone I have reviewed the PA/SKYLIGHTS ASSEMBLER's note and plan of jaimie edwards. I was available for consultation as needed at al l times during the patient's visit in the emergency department. I agree with the clinical impression , plan and disposition. Electronically Signed by Bhavna Mulligan on 09/17 at 1536 Electronically Signed by Ezekiel Prakash DO on 09/17 at 1739 RPT #: [id number] END OF REPORT
[2023-01-22] MEDS ORDERED: NA CHLORIDE 0.9% 1,000 ML ONE (12:26)
[2023-01-22 12:34] LABS: Absolute Lymphocytes (CBC) 2.8 K/uL (0.7-4.9); Hematocrit 40.8 % (36.0-45.0); Lymphocytes % 47.3 % (15.3-44.8); MCV 92.5 fL (80-100); MPV 8.2 fL (7.6-11.3); RBC Red Blood Cell Count 4.42 M/uL (3.86-4.86)
[2023-01-22 12:50] LABS: Protime INR 0.98
[2023-01-22 12:54] LABS: Albumin 3.7 g/dL (3.4-5.0); Bilirubin Direct 0.1 mg/dL (0-0.2); Bilirubin Indirect, Calculated 0.4 mg/dL (0.2-0.8); Bilirubin Total 0.5 mg/dL (0.2-1.0); Magnesium 2.2 mg/dL (1.6-2.4); Potassium 3.7 mEq/L (3.5-5.1); Protein, Total 7.3 g/dL (6.4-8.2); Troponin High Sensitivity 3.7 pg/mL (<58.9)
--- NOTE | 2023-01-22 13:30 | RAD REPORT ---
EXAM DESCRIPTION: CT - Head C Spine Cap Wo Con - 01/22/2023 1:10 pm CLINICAL HISTORY: Trauma, head and neck injury. Chest, abdomen and pelvis pain. Dizziness;Pain;Trauma COMPARISON: Abdomen Pelvis W Contrast dated 01/17/2023 TECHNIQUE: CT head without contrast. CT cervical spine without contrast with coronal and sagittal reformatted images. CT chest, abdomen and pelvis without contrast with coronal and sagittal reformatted images of the spi ne. All CT scans are performed using dose optimization technique as appropriate and may include automated exposure control or mA/KV adjustment according to patient size. FINDINGS: CT HEAD WITHOUT CONTRAST: No intracranial hemorrhage, hydrocephalus or extra-axial fluid collection. No areas of brain edema o r midline shift. The paranasal sinuses and mastoids are clear. The calvarium is intact. CT CERVICAL SPINE WITHOUT CONTRAST: No fracture or subluxation. The prevertebral soft tissues are normal in thickness.Status post C3 thr ough C7 ACDF with interbody cages. Moderate degenerative changes are present below the fusion at C7-T 1. CT CHEST, ABDOMEN, PELVIS WITHOUT CONTRAST: NOTE: Lack of contrast is a significant limitation in the assessment of trauma related findings. Spec ifically, solid organ, vascular and bowel evaluation is significantly limited. The lungs are clear.No pneumothorax or pericardial/pleural fluid. Coronary artery calcifications . No evidence of intra-abdominal visceral injury, free fluid or free air is seen within the above detai led limitations. Atherosclerosis small fat containing umbilical hernia. No concerning pelvic findings. Hysterectomy L2 kyphoplasty. Advanced degenerative changes are present at L3-4 and L5-S1. Remote sternal fracture. Anterolisthesis that is grade 1 of L3 on L4. Thoracolumbar curvature. IMPRESSION: Negative for acute traumatic findings within the above detailed limitations.
--- NOTE | 2023-01-22 13:33 | RAD REPORT ---
EXAM DESCRIPTION: RAD - Chest Single View - 01/22/2023 1:27 pm CLINICAL HISTORY: COUGH COMPARISON: Chest Single View dated 10/04/2022; Chest Single View dated 05/12/2022; Chest Single View d ated 02/16/2021; Chest Pa And Lat (2 Views) dated 12/31/2020 FINDINGS: Lines: None. Lungs: No evidence of edema or pneumonia. Pleural: No significant pleural effusions or pneumothorax. Cardiac: The heart size is within normal limits. Mediastinum: Within normal limits. Bones: No acute fractures. ACDF in the cervical spine. Other: None IMPRESSION: No acute cardiopulmonary disease.
[2023-01-22] MEDS ORDERED: MORPHINE 4 MG/ML SYR ONE (13:49)
[2023-01-22] MEDS ORDERED: ONDANSETRON 4 MG/2 ML VIAL ONE (13:49)
--- NOTE | 2023-01-22 13:58 | EDPHYS ---
Physician Documentation [facility] Name: Tita Elizabeth Age: 57 yrs Sex: Female : 1965 Arrival Date: 01/22/2023 Time: 11:58 Bed 10 Private MD: ABHIJEET Physician Breezy Pollard HPI: 01/22 13:24 This 57 yrs old Female presents to ER via Ambulatory with complaints of Fall lavern Injury, Trouble Walking. 13:24 Details of fall: The patient fell from an upright position, while standing. Onset: The lavern symptoms/episode began/occurred 2 day(s) ago. Associated injuries: The patient sustained injury to the head, neck injury, injury to the low back. Severity of symptoms: At their worst the symptoms were mild, in the emergency department the symptoms are unchanged. The patient has not experienced similar symptoms in the past. Historical: - Allergies: 12:10 Sulfa (Sulfonamide Antibiotics); nj1 - PMHx: 12:10 Arthritis; Colitis; Crohn's Disease; HTN; nj1 - PSHx: 12:10 Appendectomy; hysterectomy; Tonsillectomy; Kyphoplasty; Neck surgery, titanium cage; nj1 - Immunization history:: Client reports receiving the 2nd dose of the Covid vaccine. - Social history:: Smoking status: Patient reports the use of cigarette tobacco products, smokes one pack cigarettes per day. ROS: 13:25 Constitutional: Negative for fever, chills, and weight loss, Eyes: Negative for injury, lavern pain, redness, and discharge, ENT: Negative for injury, pain, and discharge, Neck: Negative for injury, pain, and swelling, Cardiovascular: Negative for chest pain, palpitations, and edema, Respiratory: Negative for shortness of breath, cough, wheezing, and pleuritic chest pain, Abdomen/GI: Negative for abdominal pain, nausea, vomiting, diarrhea, and constipation, : Negative for injury, bleeding, discharge, and swelling, MS/Extremity: Negative for injury and deformity, Skin: Negative for injury, rash, and discoloration, Neuro: Negative for headache, weakness, numbness, tingling, and seizure, Psych: Negative for depression, anxiety, suicide ideation, homicidal ideation, and hallucinations, Allergy/Immunology: Negative for hives, rash, and allergies, Endocrine: Negative for neck swelling, polydipsia, polyuria, polyphagia, and marked weight changes, Hematologic/Lymphatic: Negative for swollen nodes, abnormal bleeding, and unusual bruising. 13:25 Back: Positive for decreased range of motion, pain at rest, pain with movement. Exam: 13:25 Constitutional: This is a well developed, well nourished patient who is awake, alert, lavern and in no acute distress. Head/Face: Normocephalic, atraumatic. Eyes: Pupils equal round and reactive to light, extra-ocular motions intact. Lids and lashes normal. Conjunctiva and sclera are non-icteric and not injected. Cornea within normal limits. Periorbital areas with no swelling, redness, or edema. ENT: Nares patent. No nasal discharge, no septal abnormalities noted. Tympanic membranes are normal and external auditory canals are clear. Oropharynx with no redness, swelling, or masses, exudates, or evidence of obstruction, uvula midline. Mucous membranes moist. Neck: Trachea midline, no thyromegaly or masses palpated, and no cervical lymphadenopathy. Supple, full range of motion without nuchal rigidity, or vertebral point tenderness. No Meningismus. Chest/axilla: Normal chest wall appearance and motion. Nontender with no deformity. No lesions are appreciated. Cardiovascular: Regular rate and rhythm with a normal S1 and S2. No gallops, murmurs, or rubs. Normal PMI, no JVD. No pulse deficits. Vital Signs: 12:07 BP 126 / 83; Pulse 57; Resp 18; Temp 97.2(TE); Pulse Ox 98% ; Weight 56.7 kg; Height 5 nj1 ft. 1 in. ; Pain 8/10; 13:48 BP 151 / 87; Pulse 62; Pulse Ox 99% on R/A; ap3 12:07 Body Mass Index 23.62 (56.70 kg, 154.94 cm) nj1 12:07 Pain Scale: Adult nj1 MDM: 12:13 Patient medically screened. lavern 13:59 Differential diagnosis: chronic back pain, Fatigue Fracture Hydronephrosis Joint Injury lavern Neoplasm Obesity Pyelonephritis ruptured disc, Scoliosis spinal injury, sprain, Ureterolithiasis vertebral fracture. Differential diagnosis: abrasion, closed head injury, contusion, fracture, multiple trauma, sprain, strain. Data reviewed: vital signs, nurses notes, lab test result(s), EKG, radiologic studies, CT scan, plain films. Consideration of Admission/Observation Escalation of care including admission/observation considered. I considered the following discharge prescriptions or medication management in the emergency department Medications were administered in the Emergency Department. See MAR. Test considered but Not performed: MRI: no mri brain. Care significantly affected by the following chronic conditions: Hypertension. Counseling: I had a detailed discussion with the patient and/or guardian regarding: the historical points, exam findings, and any diagnostic results supporting the discharge/admit diagnosis, the presence of at least one elevated blood pressure reading (>120/80) during this emergency department visit, lab results, radiology results, the need for outpatient follow up. 01/22 12:14 Order name: Basic Metabolic Panel; Complete Time: : [facility] 01/22 12:14 Order name: CBC with Diff; Complete Time: : [facility] 01/22 12:14 Order name: LFT's; Complete Time: : [facility] 01/22 12:14 Order name: Magnesium; Complete Time: : [facility] 01/22 12:14 Order name: NT PRO-BNP; Complete Time: 13: [facility] 01/22 12:14 Order name: PT-INR; Complete Time: : [facility] 01/22 12:14 Order name: Troponin HS; Complete Time: : [facility] 01/22 12:14 Order name: Lipase; Complete Time: 13: [facility] 01/22 12:14 Order name: XRAY Chest (1 view); Complete Time: 13:54 [facility] 01/22 12:14 Order name: CT Traumagram (Head C Spine CAP wo con); Complete Time: 13:54 [facility] 01/22 12:14 Order name: EKG; Complete Time: 12:15 01/22 12:14 Order name: EKG - Nurse/Tech; Complete Time: 12:24 01/22 12:14 Order name: IV Saline Lock; Complete Time: 12:29 [facility] 01/22 12:14 Order name: Labs collected and sent; Complete Time: : [facility] 01/22 12:14 Order name: O2 Per Protocol; Complete Time: 12:16 [facility] 01/22 12:14 Order name: O2 Sat Monitoring; Complete Time: 12:16 [facility] Administered Medications: 12:31 Drug: NS 0.9% IV 1000 ml Route: IV; Rate: 1 bolus; Site: right antecubital; ap3 14:07 Follow up: IV Status: Completed infusion ap3 13:47 Drug: Ondansetron IVP 4 mg Route: IVP; Site: right antecubital; ap3 14:07 Follow up: Response: No adverse reaction ap3 13:47 Drug: morphine IVP or IV 4 mg Route: IVP; Infused Over: 4 mins; Site: right antecubital;ap3 14:12 Follow up: Response: No adverse reaction; Pain is decreased ap3 14:01 CANCELLED (Duplicate Order): Hydrocodone-Acetaminophen PO (7.5 mg-325 mg) 1 tabs PO oncecha 14:12 Drug: Ketorolac IVP 30 mg Route: IVP; Site: right antecubital; ap3 14:26 Follow up: Response: No adverse reaction ap3 14:12 Not Given (pt took this morningg): Aspirin PO Chewable Tablet 81 mg PO once ap3 Disposition Summary: 01/22/23 13:57 Discharge Ordered Location: Home lavern Problem: new lavern Symptoms: have improved lavern Condition: Stable lavern Diagnosis - Fall on same level, unspecified lavern - Low back pain lavern - Contusion of lower back and pelvis lavern - Tobacco abuse counseling lavern - Tobacco use lavern Followup: lavern - With: Private Physician - When: 2 - 3 days - Reason: Recheck today's complaints, Continuance of care, Re-evaluation by your physician Followup: lavern - With: Corey Santos MD - When: 2 - 3 days - Reason: Recheck today's complaints, Continuance of care, Re-evaluation by your physician Discharge Instructions: - Discharge Summary Sheet lavern - Acute Back Pain, Adult lavern - Chronic Back Pain lavern - Musculoskeletal Pain lavern - Steps to Quit Smoking lavern - Health Risks of Smoking lavern - Steps to Quit Smoking, [id number] lavern - Aspirin and Your Heart lavern Forms: - Medication Reconciliation Form lavern - Thank You Letter lavern - Antibiotic Education lavern - Prescription Opioid Use lavern Prescriptions: - Ibuprofen 600 mg Oral Tablet - take 1 tablet by ORAL route every 6 hours As needed take with food; 21 tablet; lavern Refills: 0, Product Selection Permitted - Cyclobenzaprine 5 mg Oral Tablet - take 1 tablet by ORAL route 3 times per day As needed; 15 tablet; Refills: 0, lavern Product Selection Permitted Signatures: Dispatcher [employer] Breezy Mosley MD MD cha Prokisch, Amanda RN RN ap3 Sharron Fabian RN RN nj1 Corrections: (The following items were deleted from the chart) 14:01 13:59 Hydrocodone-Acetaminophen PO (7.5 mg-325 mg) 1 tabs PO once ordered. lavern puckett 14:12 12:14 Cardiac monitoring ordered. lavern [email or web address]
--- NOTE | 2023-01-22 13:58 | ER ---
Nurse's Notes [facility] Name: Tita Elizabeth Age: 57 yrs Sex: Female : 1965 Arrival Date: 01/22/2023 Time: 11:58 Bed 10 Private MD: Diagnosis: Fall on same level, unspecified;Low back pain;Contusion of lower back and pelvis;Tobacco abuse counseling;Tobacco use Presentation: 01/22 12:07 Chief complaint: Patient states: [place] lightheaded and fell backwards on Monday. Takes nj1 ASA. Low back pain ever since, getting worse, "legs quit working this morning". Denies LOC. Coronavirus screen: Vaccine status: Patient reports receiving the 2nd dose of the covid vaccine. Ebola Screen: Patient denies travel to an Ebola-affected area in the 21 days before illness onset. Initial Sepsis Screen: Does the patient meet any 2 criteria? No. Patient's initial sepsis screen is negative. Does the patient have a suspected source of infection? No. Patient's initial sepsis screen is negative. Risk Assessment: Do you want to hurt yourself or someone else? Patient reports no desire to harm self or others. Onset of symptoms was January 20, 2023. 12:07 Method Of Arrival: Ambulatory [facility] 12:07 Acuity: JAY 3 nj1 Triage Assessment: 12:17 General: Appears uncomfortable, Behavior is calm, cooperative, appropriate for age. ap3 Pain: Complains of pain in low back area Pain began 2-3 days ago. Neuro: Level of Consciousness is awake, alert, obeys commands, Oriented to person, place, time, situation. Cardiovascular: Patient's skin is warm and dry. Respiratory: Airway is patent Respiratory effort is even, unlabored, Respiratory pattern is regular, symmetrical. Historical: - Allergies: 12:10 Sulfa (Sulfonamide Antibiotics); nj1 - PMHx: 12:10 Arthritis; Colitis; Crohn's Disease; HTN; nj1 - PSHx: 12:10 Appendectomy; hysterectomy; Tonsillectomy; Kyphoplasty; Neck surgery, titanium cage; nj1 - Immunization history:: Client reports receiving the 2nd dose of the Covid vaccine. - Social history:: Smoking status: Patient reports the use of cigarette tobacco products, smokes one pack cigarettes per day. Screenin:16 [facility] ED Fall Risk Assessment (Adult) History of falling in the last 3 months, ap3 including since admission Yes- single mechanical fall (1 pt) Confusion or Disorientation No (0 pts) Intoxicated or Sedated No (0 pts) Impaired Gait Yes (1 pt) Mobility Assist Device Used Yes (1 pt) Altered Elimination No (0 pt). Abuse screen: Denies threats or abuse. Nutritional screening: No deficits noted. Tuberculosis screening: No symptoms or risk factors identified. Vital Signs: 12:07 BP 126 / 83; Pulse 57; Resp 18; Temp 97.2(TE); Pulse Ox 98% ; Weight 56.7 kg; Height 5 nj1 ft. 1 in. ; Pain 8/10; 13:48 BP 151 / 87; Pulse 62; Pulse Ox 99% on R/A; ap3 12:07 Body Mass Index 23.62 (56.70 kg, 154.94 cm) nj1 12:07 Pain Scale: Adult [facility] ED Course: 12:00 Patient arrived in ED. ts1 12:09 Triage completed. nj1 12:11 Arm band placed on left wrist. nj1 12:13 Breezy Pollard MD is Attending Physician. lavern 12:16 Vielka Stephen, DALJIT is Primary Nurse. ap3 12:17 Patient has correct armband on for positive identification. Bed in low position. Call ap3 light in reach. Side rails up X2. Pulse ox on. NIBP on. Door closed. Noise minimized. Warm blanket given. 12:29 Initial lab(s) drawn, by ks, sent to lab. Inserted saline lock: 20 gauge in right ap3 antecubital area, using aseptic technique. Blood collected. 13:12 CT Traumagram (Head C Spine CAP wo con) In Process Unspecified. EDMS 13:29 XRAY Chest (1 view) In Process Unspecified. EDMS 13:56 Corey Santos MD is Referral Physician. lavern 14:26 No provider procedures requiring assistance completed. IV discontinued, intact, ap3 bleeding controlled, No redness/swelling at site. Pressure dressing applied. Administered Medications: 12:31 Drug: NS 0.9% IV 1000 ml Route: IV; Rate: 1 bolus; Site: right antecubital; ap3 14:07 Follow up: IV Status: Completed infusion ap3 13:47 Drug: Ondansetron IVP 4 mg Route: IVP; Site: right antecubital; ap3 14:07 Follow up: Response: No adverse reaction ap3 13:47 Drug: morphine IVP or IV 4 mg Route: IVP; Infused Over: 4 mins; Site: right antecubital;ap3 14:12 Follow up: Response: No adverse reaction; Pain is decreased ap3 14:01 CANCELLED (Duplicate Order): Hydrocodone-Acetaminophen PO (7.5 mg-325 mg) 1 tabs PO oncecha 14:12 Drug: Ketorolac IVP 30 mg Route: IVP; Site: right antecubital; ap3 14:26 Follow up: Response: No adverse reaction ap3 14:12 Not Given (pt took this morningg): Aspirin PO Chewable Tablet 81 mg PO once ap3 Medication: 14:26 VIS not applicable for this client. ap3 Outcome: 13:57 Discharge ordered by MD. puckett 14:26 Discharged to home via wheelchair, with family. ap3 14:26 Condition: good 14:26 Discharge instructions given to patient, family, Instructed on discharge instructions, follow up and referral plans. medication usage, Demonstrated understanding of instructions, follow-up care, medications, Prescriptions given X 2. 14:30 Patient left the ED. ap3 Signatures: Dispatcher [employer] EDMS Breezy Pollard MD MD cha Prokisch, Amanda RN DALJIT ap3 Sharron Fabian RN RN nj1 Fernanda Beltran, PAS PAS ts1 Corrections: (The following items were deleted from the chart) 12:11 12:07 BP 126 / 83; Pulse 57bpm; Resp 18bpm; Pulse Ox 98%; Pain 8/10, Adult; nj1 nj1
[2023-01-22] MEDS ORDERED: ASPIRIN 81 MG CHEWABLE TABLET ONE (14:17)
[2023-01-22] MEDS ORDERED: KETOROLAC 30 MG/ML INJ ONE (14:17)
[2023-01-22 15:04] VITALS: TEMP 97.2
[2023-01-22 15:15] VITALS: BP 151/87; O2SAT 99
--- NOTE | 2023-01-25 07:15 | EKG ---
Test Date: 2023-01-22 Test Time: 12:20:15 Beam Dyer Recessed Vat: CARMEN[place] MEASUREMENT RESULTS: Intervals: Rate: 53 WI: 136 QRSD: 134 QT: 474 QTc: 444 [place]: P: 46 WI: 136 QRS: 42 T: 50 INTERPRETIVE STATEMENTS: Sinus bradycardia Right bundle branch block Abnormal ECG Compared to ECG 10/04/2022 10:11:33 No significant changes Electronically Signed On 01-25-23 07:07:45 CDT by Matt Vergara
== END 2023-01-22 14:30 | disposition home or self-care (01) ==
LOC: ER 11:58
DX: S30.0XXA Contusion of lower back and pelvis, initial encounter (principal); W18.30XA Fall on same level, unspecified, initial encounter; Z72.0 Tobacco use; Z71.6 Tobacco abuse counseling; Z88.2 Allergy status to sulfonamides
CPT/HCPCS: 96361; 93005; 85025; 80048; 36415; 83735; 85610; 80076; 84484; 83690; 83880; 70450; 71250; 72125; 71045; 96375; 96374; 99284; J2405; J7030

== ENCOUNTER 2023-03-28 07:36 | Emergency (ER) | payer OTHER ==
--- OUTSIDE RECORDS SUMMARY | 2023-03-28 08:06 | XMS REPORT | Continuity of Care Document ---
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 04:59 mouth. [place] 00 :00 Medical Branch aspirin 81 2021-2022- No 81mg Take 1 Univ ers mg EC 0-25 10-26 tablet by ity of tablet 00:00: 04:59 mouth. [place] 00 :00 [facility] aspirin 81 2021-2022- No 81mg QD Take [address] [facility] MG EC 0-25 10-25 tablet (81 [facility] tablet 00:00: 23:59 mg total) Medic al 00 :00 by mouth Center daily. aspirin 81 2021-2022- No 81mg QD Take [address] [facility] MG EC 0-25 10-25 tablet (81 [facility] tablet 00:00: 23:59 mg total) Medic al 00 :00 by mouth Center daily. aspirin 81 2021-08- No 81mg QD Take [address] [facility] MG EC 0-25 10-25 tablet (81 [facility] tablet 00:00: 23:59 mg total) Medic al 00 :00 by mouth Center daily. aspirin 81 2021-08- No 81mg QD Take [address] [facility] MG EC 0-25 10-25 tablet (81 [facility] tablet 00:00: 23:59 mg total) Medic al 00 :00 by mouth Center daily. aspirin 81 2021-08- No 81mg QD Take [address] [facility] MG EC 0-25 10-25 tablet (81 [facility] tablet 00:00: 23:59 mg total) Medic al 00 :00 by mouth Center daily. aspirin 81 2021-08- No 81mg QD Take [address] [facility] [...] days. Max Daily Amount: 1 mg metoprolol 2021-08 No 50mg QD Take [address] [facility] succinate 0-25 11-09 tablet (50 [facility] (TOPROL-XL) 00:00: 00:00 mg total) Medical [...] Max Daily Amount: 1.5 mg aspirin 81 2022-0 2022- No 81mg QD Take 1 [facility] [...] Daily Amount: 1.5 mg aspirin 81 2-0 2- No 81mg QD Take [address] [facility] [...] .5mg Take [address] [facility] (XANAX) 0.5 9-17 -19 tablet [facility] tablet 00:00: 00:00 (0.5 mg Medi yesy 00 :00 total) by Center mouth 3 (three) times daily as needed for Anxiety for up to 9 doses. Max Daily Amount: 1.5 mg ALPRAZolam 2021-0 2021- No .5mg Take [address] [facility] (XANAX) 0.5 05-14 tablet [facility] tablet 00:00: 00:00 (0.5 mg Medi yesy 00 :00 total) by Center mouth 3 (three) times daily as needed for Anxiety for up to 9 doses. Max Daily Amount: 1.5 mg ALPRAZolam 2021-0 2021- No .5mg Take [address] [facility] (XANAX) 0.5 05-14 tablet [facility] tablet 00:00: 00:00 (0.5 mg Medi yesy 00 :00 total) by Center mouth 3 (three) times daily as needed for Anxiety for up to 9 doses. Max Daily Amount: 1.5 mg ALPRAZolam 2021-0 2021- No .5mg Take [address] [facility] (XANAX) 0.5 05-14 tablet [facility] tablet 00:00: 00:00 (0.5 mg Medi yesy 00 :00 total) by Center mouth 3 (three) times daily as needed for Anxiety for up to 9 doses. Max Daily Amount: 1.5 mg ALPRAZolam 2021-0 2021- No .5mg Take [address] [facility] (XANAX) 0.5 05-14 tablet [facility] tablet 00:00: 00:00 (0.5 mg Medi yesy 00 :00 total) by Center mouth 3 (three) times daily as needed for Anxiety for up to 9 doses. Max Daily Amount: 1.5 mg ALPRAZolam 2021-0 2021- No .5mg Take [address] [facility] [address] (XANAX) 0.5 05-14 tablet [facility] tablet 00:00: 00:00 (0.5 mg Medi yesy 00 :00 total) by Center mouth 3 (three) times daily as needed for Anxiety for up to 9 doses. Max Daily Amount: 1.5 mg metoprolol 2021- No 25mg Take 25 mg [facility] tartrate 25 11-3005 by mouth. it y of mg tablet 11:13: 00:00 [place] 29 :00 Medical Branch cyanocobala 0 2021- No 1{tbl} Take 1 U nivers min, 4-05 04-05 tablet by ity of vitamin 11:13: 00:00 mouth. [place] B-12, 05 :00 Medical (VITAMIN Branch B-12 ORAL) citalopram 0 2021- No 40mg Take 40 mg Univers 40 mg 4-05 04-05 by mouth. ity of tablet 11:12: 00:00 [place] 58 :00 Medical Branch MULTIVITAMI 0 Yes Take by Uni vers N ORAL 4-05 mouth. ity of 10:10: [place] [address] Medical Branch MULTIVITAMI Yes Take by Uni vers N ORAL 4-05 mouth. ity of 10:10: [place] [address] Medical Branch MULTIVITAMI Yes Take by Uni vers N ORAL 4-05 mouth. ity of 10:10: [place] [address] Medical Branch MULTIVITAMI Yes Take by Uni vers N ORAL 4-05 mouth. ity of 10:10: [place] [address] Medical Branch tizanidine 0 2021- No 4mg Take 4 mg U nivers HCl 4-05 04-05 by mouth. ity of (TIZANIDINE 10:10: 00:00 [place] ORAL) 14 :00 Medical Branch meloxicam 0 Yes 15mg Take 15 mg Un alexi 15 mg 4-05 by mouth ity of tablet 10:06: daily. [place] [address] Medical Branch MIRTAZAPINE 0 Yes 15mg Take 15 mg Univers ORAL 4-05 by mouth. ity of 10:06: [place] [address] Medical Branch famotidine 0 Yes 20mg Take 20 mg U nivers 20 mg 4-05 by mouth 2 ity of tablet 10:06: (two) [place] [address] times Medical daily. Branch atorvastati 0 Yes 20mg Take 20 mg Univers n 20 mg 4-05 by mouth ity of tablet 10:06: at [place] [address] bedtime. Medical Branch meloxicam 0 Yes 15mg Take 15 mg Un alexi 15 mg 4-05 by mouth ity of tablet 10:06: daily. [place] [address] Medical Branch MIRTAZAPINE 2021-0 Yes 15mg Take 15 mg Univers ORAL 4-05 by mouth. ity of 10:06: [place] [address] Medical Branch famotidine 2021-0 Yes 20mg Take 20 mg U nivers 20 mg 4-05 by mouth 2 ity of tablet 10:06: (two) [place] [address] times Medical daily. Branch atorvastati 2021-0 Yes 20mg Take 20 mg Univers n 20 mg 4-05 by mouth ity of tablet 10:06: at [place] [address] bedtime. Medical Branch meloxicam 2-0 Yes 15mg Take 15 mg Un alexi 15 mg 4-05 by mouth ity of tablet 10:06: daily. [place] [address] Medical Branch MIRTAZAPINE 2021-0 Yes 15mg Take 15 mg Univers ORAL 4-05 by mouth. ity of 10:06: [place] [address] Medical Branch famotidine 2021-0 Yes 20mg Take 20 mg U nivers 20 mg 4-05 by mouth 2 ity of tablet 10:06: (two) [place] [address] times Medical daily. Branch atorvastati 2021-0 Yes 20mg Take 20 mg Univers n 20 mg 4-05 by mouth ity of tablet 10:06: at [place] [address] bedtime. Medical Branch meloxicam 2021-0 Yes 15mg Take 15 mg Un alexi 15 mg 4-05 by mouth ity of tablet 10:06: daily. [address] Branch famotidine 2021-0 Yes 20mg Take 20 mg U nivers 20 mg 4-05 by mouth 2 ity of tablet 10:06: (two) [place] [address] times Medical daily. Branch losartan 50 2021-0 Yes 50mg Take 50 mg Univers mg tablet 4-05 by mouth ity of 09:52: daily. [address] losartan 50 2021-0 Yes 50mg Take 50 mg Univers mg tablet 4-05 by mouth ity of 09:52: daily. [address] losartan 50 2021-0 Yes 50mg Take 50 mg Univers mg tablet 4-05 by mouth ity of 09:52: daily. [address] estradioL 2021-0 Yes [id number] 1g Insert 1 g Univers 0.01 % (0.1 4-05 into ity of mg/gram) 00:00: vagina [place] vaginal 00 weekly. Medical cream [place] estradioL 2021-0 Yes [id number] 1g Insert 1 g Univers 0.01 % (0.1 4-05 into ity of mg/gram) 00:00: vagina [place] vaginal 00 weekly. Medical cream Branch estradioL 2021-0 Yes [id number] 1g Insert 1 g Univers 0.01 % (0.1 4-05 into ity of mg/gram) 00:00: vagina [facility] weekly. Medical cream Branch estradioL 2021-0 Yes [id number] 1g Insert 1 g Univers 0.01 % (0.1 4-05 into ity of mg/gram) 00:00: vagina [facility] weekly. Medical cream Branch estradioL 2021-0 Yes [id number] 1g Insert 1 g Univers 0.01 % (0.1 4-05 into ity of mg/gram) 00:00: vagina [facility] weekly. Medical cream Branch estradioL 2021-0 Yes [id number] 1g Insert 1 g Univers 0.01 % (0.1 4-05 into ity of mg/gram) 00:00: vagina [facility] weekly. Medical cream Branch estradioL 2021-0 Yes [id number] 1g Insert 1 g Univers 0.01 % (0.1 4-05 into ity of mg/gram) 00:00: [facility] weekly. Medical cream Branch tiZANidine 0 Yes Univers 4 mg tablet 4-04 ity of 00:00: [place] 00 Medical Branch tiZANidine 2021-0 Yes Univers 4 mg tablet 4-04 ity of 00:00: [place] 00 Medical Branch tiZANidine 2021-0 Yes Univers 4 mg tablet 4-04 ity of 00:00: [place] 00 Medical Branch tiZANidine 2021-0 Yes Univers 4 mg tablet 4-04 ity of 00:00: [place] 00 Medical Branch tiZANidine 2021-0 Yes Univers 4 mg tablet 4-04 ity of 00:00: [place] 00 Medical Branch tiZANidine 2021-0 Yes Univers 4 mg tablet 4-04 ity of 00:00: [place] 00 Medical Branch tiZANidine 2021-0 Yes Univers 4 mg tablet 4-04 ity of 00:00: [place] 00 Medical Branch mirtazapine 2021-0 2021- No 15mg Take 15 mg Univers 15 mg 11-26-05 by mouth ity of tablet 00:00: 00:00 at [place] 00 :00 bedtime. Medical Branch eszopiclone 2021-0 Yes 3mg Take 3 mg U nivers 3 mg tablet 3-28 by mouth ity of 00:00: at [place] bedtime. Medical Branch eszopiclone 2022-0 Yes 3mg Take 3 mg U nivers 3 mg tablet 3-28 by mouth ity of 00:00: at [place] bedtime. Medical Branch eszopiclone 2022-0 Yes 3mg Take 3 mg U nivers 3 mg tablet 3-28 by mouth ity of 00:00: at [place] bedtime. Medical Branch methocarbam 2022-0 Yes 500mg Take 500 U [...] mg by ity of tablet 00:00: mouth (two) Medical times Branch daily. HYDROcodone 2022-0 [...] mouth 2 (two) Medical times Branch daily. methocarbam 2022-0 Yes 500mg Take 1 Uni vers oL 500 mg 3-10 tablet by ity o f tablet 00:00: mouth in the Medical morning Branch and 1 tablet in the evening. methocarbam 2022-0 Yes 500mg Take 1 Uni vers oL 500 mg 3-10 tablet by ity o f tablet 00:00: mouth in [place] 00 the Medical morning Branch and 1 tablet in the evening. methocarbam 2021-0 Yes 500mg Take 1 Uni vers oL 500 mg 3-10 tablet by ity o f tablet 00:00: mouth in [place] 00 the Medical morning Branch and 1 tablet in the evening. methocarbam 2-0 Yes 500mg Q.5D Take [address] oL 3-10 mg by [facility] (ROBAXIN) 00:00: mouth 2 Medic al 500 MG 00 (two) Center tablet times daily. methocarbam 2021-0 2023- No 500mg Q.5D Take [address] [facility] oL 3-10 01-17 mg by [facility] (ROBAXIN) 00:00: 00:00 mouth 2 Medi yesy 500 MG 00 :00 (two) Center tablet times daily. methocarbam 2-0 2023- No 500mg Q.5D Take [address] [address] oL 3-10 01-17 mg by [facility] (ROBAXIN) 00:00: 00:00 mouth 2 Medi yesy 500 MG 00 :00 (two) Center tablet times daily. methocarbam 2-0 2023- No 500mg Q.5D Take [address] oL 3-10 01-17 mg by [facility] (ROBAXIN) 00:00: 00:00 mouth 2 Medi yesy 500 MG 00 :00 (two) Center tablet times daily. methocarbam 2-0 2023- No 500mg Q.5D Take [address] oL 3-10 01-17 mg by [facility] (ROBAXIN) 00:00: 00:00 mouth 2 Medi yesy 500 MG 00 :00 (two) Center tablet times daily. methocarbam 2-0 2023- No 500mg Q.5D Take [address] oL 3-10 01-17 mg by [facility] (ROBAXIN) 00:00: 00:00 mouth 2 Medi yesy 500 MG 00 :00 (two) Center tablet times daily. meloxicam 2022-0 Yes TAKE 1 Univer s 7.5 mg 1-26 TABLET BY ity of tablet 00:00: MOUTH [place] 00 EVERY DAY Medical FOR 14 Branch DAYS meloxicam 2022-0 Yes TAKE 1 Univer s 7.5 mg 1-26 TABLET BY ity of tablet 00:00: MOUTH [place] EVERY DAY Medical FOR 14 Branch DAYS meloxicam 2022-0 Yes TAKE 1 Univer s 7.5 mg [...] DAY Medical FOR 14 Branch DAYS buPROPion 2-0 Yes 150mg Take 150 Uni vers SR 150 mg 1-11 mg by ity of SR tablet 00:00: mouth (two) Medical times Branch daily. buPROPion 2-0 Yes 150mg Take 150 Uni vers SR 150 mg 1-11 mg by ity of SR tablet 00:00: mouth (two) Medical times Branch daily. buPROPion 2-0 Yes 150mg Take 150 Uni vers SR 150 mg 1-11 mg by ity of SR tablet 00:00: mouth (two) Medical times Branch daily. buPROPion 2-0 Yes 150mg Take 150 Uni vers SR 150 mg 1-11 mg by ity of SR tablet 00:00: mouth (two) Medical times Branch daily. buPROPion 2022-0 Yes 150mg Take 1 Unive rs SR 150 mg 1-11 tablet by ity o f SR tablet 00:00: mouth in the Medical morning Branch and 1 tablet in the evening. buPROPion 2022-0 Yes 150mg Take 1 Unive rs SR 150 mg 1-11 tablet by ity o f SR tablet 00:00: mouth in the Medical morning Branch and 1 tablet in the evening. buPROPion 2022-0 Yes 150mg Take 1 Unive rs SR 150 mg 1-11 tablet by ity o f SR tablet 00:00: mouth in the Medical morning Branch and 1 tablet in the evening. oxybutynin 2019-08 Yes 10mg Take 1 Univers 10 mg 24 hr 1-05 tablet by ity of tablet 00:00: mouth [place] 00 daily. [facility] Branch oxybutynin 2019-08 Yes [id number] 10mg Take 1 Univers 10 mg 24 hr 1-05 tablet by ity of tablet 00:00: mouth [place] 00 daily. [facility] oxybutynin 2019-08 Yes [id number] 10mg Take 1 [facility] 10 mg 24 hr 1-05 tablet by ity of tablet 00:00: mouth [place] 00 daily. [facility] oxybutynin 2019-08 Yes 10mg Take 1 [facility] 10 mg 24 hr 1-05 tablet by ity of tablet 00:00: mouth [place] 00 daily. [facility] oxybutynin 2019-08 Yes [id number] 10mg Take 1 [facility] 10 mg 24 hr 1-05 tablet by ity of tablet 00:00: mouth [place] 00 daily. [facility] oxybutynin 2019-08 Yes [id number] 10mg Take 1 [facility] 10 mg 24 hr 1-05 tablet by ity of tablet 00:00: mouth [place] 00 daily. [facility] oxybutynin 2019-08 Yes [id number] 10mg Take 1 [facility] 10 mg 24 hr 1-05 tablet by ity of tablet 00:00: mouth [place] 00 daily. [facility] methylPREDN 2019-08- No [id number] Take by Univers ISolone -05 04-05 mouth ity of (MEDROL, 00:00: 00:00 [place]NY[place] 4 mg 00 :00 CTIONS. Medica l tablets follow Branch package directions naproxen 2019-08- No [id number] 550mg Take 1 Univers sodium 1-05 04-05 [...] Indication s: acute pain cyclobenzap 2018-08- No [id number] 5mg Take 1 Univers rine 5 mg [...] H arris rine 4-15 left-sided tablet by [facility] (FLEXERIL) 00:00: low back mouth 2 10 [...] H arris rine 4-15 left-sided tablet by [facility] (FLEXERIL) 00:00: low back mouth 2 10 [...] H arris rine 4-15 left-sided tablet by [facility] (FLEXERIL) 00:00: low back mouth 2 10 [...] H arris rine 4-15 left-sided tablet by [facility] (FLEXERIL) 00:00: low back mouth 2 10 mg 00 pain with times tablet sciatica, daily as sciatica needed for laterality Muscle unspecified Spasms. gabapentin Yes Chronic 300mg Take 1 H arris (NEURONTIN) 4-15 left-sided capsule by [facility] 300 mg 00:00: low back mouth 2 capsule 00 pain with times sciatica, daily as sciatica needed for laterality Pain. unspecified cyclobenzap Yes Chronic 10mg Take 1 H arris rine 4-15 left-sided tablet by [facility] (FLEXERIL) 00:00: low back mouth 2 10 mg 00 pain with times tablet sciatica, daily as sciatica needed for laterality Muscle unspecified Spasms. gabapentin Yes Chronic 300mg Take 1 H arris (NEURONTIN) 4-15 left-sided capsule by [facility] 300 mg 00:00: low back mouth 2 capsule 00 pain with times sciatica, daily as sciatica needed for laterality Pain. unspecified cyclobenzap Yes Chronic 10mg Take 1 H arris rine 4-15 left-sided tablet by [facility] (FLEXERIL) 00:00: low back mouth 2 10 mg 00 pain with times tablet sciatica, daily as sciatica needed for laterality Muscle unspecified Spasms. gabapentin Yes Chronic 300mg Take 1 H arris (NEURONTIN) 4-15 left-sided capsule by [facility] 300 mg 00:00: low back mouth 2 capsule 00 pain with times sciatica, daily as sciatica needed for laterality Pain. unspecified cyclobenzap Yes Chronic 10mg Take 1 H arris rine 4-15 left-sided tablet by [facility] (FLEXERIL) 00:00: low back mouth 2 10 mg 00 pain with times tablet sciatica, daily as sciatica needed for laterality Muscle unspecified Spasms. gabapentin Yes Chronic 300mg Take 1 H arris (NEURONTIN) 4-15 left-sided capsule by [facility] 300 mg 00:00: low back mouth 2 capsule 00 pain with times sciatica, daily as sciatica needed for laterality Pain. unspecified cyclobenzap Yes Chronic 10mg Take 1 H arris rine 4-15 left-sided tablet by [facility] (FLEXERIL) 00:00: low back mouth 2 10 [...] laterality Muscle unspecified Spasms. metoprolol Yes 25mg Q.[id number] Take 25 mg [facility] tartrate 6-[id number] [facility] [address] [facility] (LOPRESSOR) 18:26: 3D [...] daily as l needed for mild pain. metoprolol 2018 Yes 25mg Q.[id number] Take 25 mg [facility] tartrate 6-[id number] [facility] (LOPRESSOR) 18:26: 3D [...] tablet 18:26: nightly. [facility] l citalopram 2018-0 Yes 40mg QD Take 40 mg M [facility] (CeleXA) 40 6-[address] MG tablet 18:26: nightly. [facility] l metoprolol 2018-0 Yes 25mg Q.[id number] Take 25 mg [facility] tartrate 6-[id number] [facility] [address] [facility] (LOPRESSOR) 18:26: 3D [...] tasha 50 l metoprolol 2018-0 Yes 25mg Q.[id number] Take 25 mg [facility] tartrate 6-[id number] [facility] [address] [facility] (LOPRESSOR) 18:26: 3D [...] tasha 50 l metoprolol 2018-0 Yes 25mg Q.[id number] Take 25 mg [facility] tartrate 6-[id number] [facility] [address] [facility] (LOPRESSOR) 18:26: 3D [...] tasha 50 l metoprolol 2018-0 Yes 25mg Q.[id number] Take 25 mg [facility] tartrate 6-[id number] [facility] [address] (LOPRESSOR) 18:26: 3D [...] [facility] 50 l metoprolol Yes 25mg Q.[id number] Take 25 mg [facility] tartrate 6-[id number] [facility] [address] [facility] (LOPRESSOR) 18:26: 3D (three) Hos virla 25 mg 50 times a l tablet [...] l 14:26: Ativan) ivan No Notes: Memoria 9- (Same as: l 14:26: Ativan) Nghiaivan No Notes: [facility]oria 9-23 (Same as: l 14:26: Ativan) Ativan No Notes: [facility]oria 9-23 (Same as: l 14:26: Ativan) ivan No Notes: [facility]oria 9-23 (Same as: l 14:26: Ativan) Ativan No Notes: [facility]oria 9-23 (Same as: l 14:26: Ativan) ivan No Notes: [facility] 9-23 (Same as: l 14:26: Ativan) Ativan No Notes: Memoria 9- (Same as: l 14:26: Ativan) Acetaminoph No [...] oria 9-23 PO, Daily, l 12:18: 0 Refill(s) rOPINIRole Yes 1 mg = 1 Mem oria 1 mg oral 9-23 tab, PO, l tablet 12:18: Daily, 0 Refill(s) Klor-Con 10 Yes 10 mEq, Mem oria 9-23 PO, Daily, l 12:18: 0 [place] 00 Refill(s) rOPINIRole Yes 1 mg = 1 Mem oria 1 mg oral 9-23 tab, PO, l tablet 12:18: Daily, 0 Wing 00 Refill(s) Klor-Con 10 Yes 10 mEq, Mem oria 9-23 PO, Daily, l 12:18: 0 [place] 00 Refill(s) rOPINIRole Yes 1 mg = 1 Mem oria 1 mg oral 9-23 tab, PO, l tablet 12:18: Daily, 0 Wing 00 Refill(s) Klor-Con 10 Yes 10 mEq, Mem oria 9-23 PO, Daily, l 12:18: 0 Wing 00 Refill(s) rOPINIRole Yes 1 mg = [...] oria 9-23 PO, Daily, l 12:18: 0 Wing 00 Refill(s) rOPINIRole Yes 1 mg = 1 Mem oria 1 mg oral 9-23 tab, PO, l tablet 12:18: Daily, 0 [place] 00 Refill(s) Klor-Con 10 Yes 10 mEq, Mem oria 9-23 PO, Daily, l 12:18: 0 Wing 00 Refill(s) rOPINIRole Yes 1 mg = 1 Mem oria 1 mg oral 9-23 tab, PO, l tablet 12:18: Daily, 0 [place] 00 Refill(s) Klor-Con 10 Yes 10 mEq, Mem oria 9-23 PO, Daily, l 12:18: 0 [place] 00 Refill(s) rOPINIRole Yes 1 mg = 1 Mem oria 1 mg oral 9-23 tab, PO, l tablet 12:18: Daily, 0 Wing 00 Refill(s) Klor-Con 10 Yes 10 mEq, Mem oria 9-23 PO, Daily, l 12:18: 0 Wing 00 Refill(s) rOPINIRole Yes 1 mg = 1 Mem oria 1 mg oral 9-23 tab, PO, l tablet 12:18: Daily, 0 [place] 00 Refill(s) Klor-Con 10 Yes 10 mEq, Mem oria 9-23 PO, Daily, l 12:18: 0 [place] 00 Refill(s) rOPINIRole Yes 1 mg = 1 Mem oria 1 mg oral 9-23 tab, PO, l tablet 12:18: Daily, 0 Wing 00 Refill(s) Klor-Con 10 Yes 10 mEq, Mem oria 9-23 PO, Daily, l 12:18: 0 Wing 00 Refill(s) rOPINIRole Yes 1 mg = 1 Mem oria 1 mg oral 9-23 tab, PO, l tablet 12:18: Daily, 0 [place] 00 Refill(s) Klor-Con 10 Yes 10 mEq, Mem oria 9-23 PO, Daily, l 12:18: 0 [place] 00 Refill(s) rOPINIRole Yes 1 mg = 1 Mem oria 1 mg oral 9-23 tab, PO, l tablet 12:18: Daily, 0 Wing 00 Refill(s) Klor-Con 10 Yes 10 mEq, Mem oria 9-23 PO, Daily, l 12:18: 0 [place] 00 Refill(s) rOPINIRole Yes 1 mg = 1 Mem oria 1 mg oral 9-23 tab, PO, l tablet 12:18: Daily, 0 Wing 00 Refill(s) Klor-Con 10 Yes 10 mEq, Mem oria 9-23 PO, Daily, l 12:18: 0 Wing 00 Refill(s) rOPINIRole Yes 1 mg = 1 Mem oria 1 mg oral 9-23 tab, PO, l tablet 12:18: Daily, 0 Wing 00 Refill(s) Klor-Con 10 Yes 10 mEq, Mem oria 9-23 PO, Daily, l 12:18: 0 [place] 00 Refill(s) rOPINIRole 2013- Yes 1 mg = 1 Mem oria 1 mg oral 9-23 tab, PO, l tablet 12:18: Daily, 0 Wing 00 Refill(s) Klor-Con 10 Yes 10 mEq, Mem oria 9-23 PO, Daily, l 12:18: 0 Wing 00 Refill(s) rOPINIRole 2013-0 Yes 1 mg = 1 Mem oria 1 mg oral 9-23 tab, PO, l tablet 12:18: Daily, 0 Wing 00 Refill(s) Klor-Con 10 Yes 10 mEq, Mem oria 9-23 PO, Daily, l 12:18: 0 Wing 00 Refill(s) Hydrochloro 2013-0 Yes 1 tab, [...] 9-23 Daily, # l 12.5 MG / :00: 30 tab, 0 Her [facility] Losartan 00 [...] 9-23 Daily, # l 12.5 MG / :00: 30 tab, 0 [facility] [place] Losartan 00 [...] Mau agata 9-22 Daily l 14:48: aripiprazol 2013-0 Yes 15 mg = 1 M emoria e 15 MG - tab, PO, l Oral Tablet 14:47: Daily Alice nn [Abili] Clonidine 2013-0 Yes PO, Memoria 9-22 Bedtime l 14:47: aripiprazol Yes 15 mg [...] Tablet 14:47: Daily [facility] [Abilify] Clonidine 2014-0 Yes PO, Memoria 9-22 Bedtime l 14:47: aripiprazol 2013-0 Yes 15 mg = 1 M emoria e 15 MG - tab, PO, l Oral Tablet 14:47: Daily [facility] nn [Abili] 00 Clonidine 2013-0 Yes PO, Memoria - Bedtime l 14:47: Ibuprofen 2013-0 Yes 800 [...] Memor ia 9-22 PO, BID l 14:46: 00 Miralax No Notes: Memoria 5-09 Dissolve l 14:00: in 8 oz of [place] 00 water or juice. (Same as: Miralax) Miralax No Notes: Memoria 5-09 Dissolve l 14:00: in 8 oz of Wing 00 water or juice. (Same as: Miralax) Miralax No Notes: Memoria 5-09 Dissolve l 14:00: in 8 oz of Wing 00 water or juice. (Same as: Miralax) Miralax No Notes: Memoria 5-09 Dissolve l 14:00: in 8 oz of Wing 00 water or juice. (Same as: Miralax) Miralax No Notes: Memoria 5-09 Dissolve l 14:00: in 8 oz of Wing 00 water or juice. (Same as: Miralax) Miralax No Notes: Memoria 5-09 Dissolve l 14:00: in 8 oz of Wing 00 water or juice. (Same as: Miralax) Miralax No Notes: Memoria 5-09 Dissolve l 14:00: in 8 oz of [place] 00 water or juice. (Same as: Miralax) Miralax No Notes: Memoria 5-09 Dissolve l 14:00: in 8 oz of Wing 00 water or juice. (Same as: Miralax) Miralax No Notes: Memoria 5-09 Dissolve l 14:00: in 8 oz of [place] 00 water or juice. (Same as: Miralax) Miralax No Notes: Memoria 5-09 Dissolve l 14:00: in 8 oz of Wing 00 water or juice. (Same as: Miralax) Miralax No Notes: Memoria 5-09 Dissolve l 14:00: in 8 oz of [place] 00 water or juice. (Same as: Miralax) Miralax No Notes: Memoria 5-09 Dissolve l 14:00: in 8 oz of [place] 00 water or juice. (Same as: Miralax) Miralax No Notes: Memoria 5-09 Dissolve l 14:00: in 8 oz of Wing 00 water or juice. (Same as: Miralax) Miralax No Notes: Memoria 5-09 Dissolve l 14:00: in 8 oz of Wing 00 water or juice. (Same as: Miralax) [...] Laxative 5-08 (Same As: l 15:24: Dulcolax, Wing 00 Bisco-Lax) Dulcolax No Notes: Memoria Laxative 5-08 (Same As: l 15:24: Dulcolax, [place] 00 Bisco-Lax) Dulcolax No Notes: Memoria Laxative 5-08 (Same As: l 15:24: Dulcolax, Wing 00 Bisco-Lax) Dulcolax No Notes: Memoria Laxative 5-08 (Same As: l 15:24: Dulcolax, Wing 00 Bisco-Lax) Dulcolax No Notes: Memoria Laxative [...] Laxative 5-08 (Same As: l 15:24: Dulcolax, Wing 00 Bisco-Lax) Dulcolax No Notes: Memoria Laxative 5-08 (Same As: l 15:24: Dulcolax, [place] 00 Bisco-Lax) Dulcolax No Notes: Memoria Laxative 5-08 (Same As: l 15:24: Dulcolax, [place] 00 Bisco-Lax) Dulcolax No Notes: Memoria Laxative 5-08 (Same As: l 15:24: Dulcolax, Wing 00 Bisco-Lax) Dulcolax No Notes: Memoria Laxative [...] ia 5-07 (Same As: l 14:00: Entocort Wing 00 EC or Budesonide 3 mg EC / ERC) "Do Not Crush" Sertraline No Notes: Memor ia 5-07 (Same as: l 14:00: Zoloft) [place] 00 Methocarbam No Notes: Mau agata ol 5-07 (Same l 14:00: as:Robaxin [place] ) aripiprazol No Notes: Mau agata e 5-07 Non-Formul l 14:00: leva Drug. Wing (Same as: ) Entocort EC No 9 mg, Memor ia 5-07 Route: PO, l 14:00: Drug form: Wing 00 ERCAP, Daily, Dosing Weight 71.818, kg, Start date: 01/01/14 9:00:00, Duration: 30 day, Stop date: 01/30/14 9:00:00 Budesonide No Notes: Memor ia 5-07 (Same As: l 14:00: Entocort Wing 00 EC or Budesonide 3 mg EC / ERC) "Do Not Crush" Sertraline No Notes: Memor ia 5-07 (Same as: l 14:00: Zoloft) Wing Methocarbam No Notes: Mau agata ol 5-07 (Same l 14:00: as:Robaxin [place] 00 ) aripiprazol No Notes: Mau agata e 5-07 Non-Formul l 14:00: elva Drug. Wing 00 (Same as: ) Entocort EC No 9 mg, Memor ia 5-07 Route: PO, l 14:00: Drug form: Nghia 00 ERCAP, Daily, Dosing Weight 71.818, kg, Start date: 01/01/14 9:00:00, Duration: 30 day, Stop date: 01/30/14 9:00:00 Budesonide No Notes: Memor ia 5-07 (Same As: l 14:00: Entocort Wing 00 EC or Budesonide 3 mg EC / ERC) "Do Not Crush" Sertraline No Notes: Memor ia 5-07 (Same as: l 14:00: Zoloft) Wing 00 Methocarbam No Notes: Mau agata ol 5-07 (Same l 14:00: as:Robaxin Nghia 00 ) aripiprazol No Notes: Mau agata e 5-07 Non-Formul l 14:00: [facility] [place] (Same as: ) Entocort EC No 9 mg, [facility] 5-07 Route: PO, l 14:00: Drug form: Wing 00 ERCAP, Daily, Dosing Weight 71.818, kg, Start date: 01/01/14 9:00:00, Duration: 30 day, Stop date: 01/30/14 9:00:00 Budesonide No Notes: [facility] 5-07 (Same As: l 14:00: Entocort [place] 00 EC or Budesonide 3 mg EC / ERC) "Do Not Crush" Sertraline No Notes: [facility] 5-07 (Same as: l 14:00: Zoloft) Wing Methocarbam No Notes: Mau agata ol 5-07 [...] ia 5-07 (Same As: l 14:00: Entocort Wing 00 EC or Budesonide 3 mg EC [...] 5-07 Route: PO, l 14:00: Drug form: Wing 00 ERCAP, Daily, Dosing Weight 71.818, kg, Start date: 01/01/14 9:00:00, Duration: 30 day, Stop date: 01/30/14 9:00:00 Budesonide No Notes: [facility] 5-07 (Same As: l 14:00: Entocort Wing 00 EC or Budesonide 3 mg EC / ERC) "Do Not Crush" Sertraline No Notes: [facility] 5-07 (Same as: l 14:00: Zoloft) Wing 00 Methocarbam No Notes: Mau agata ol 5-07 (Same l 14:00: as:Robaxin ) aripiprazol No Notes: Mau agata e 5-07 Non-Formul l 14:00: [facility] (Same as: ) Entocort EC No 9 mg, [facility] 5-07 Route: PO, l 14:00: Drug form: Wing 00 ERCAP, Daily, Dosing Weight 71.818, kg, Start date: 01/01/14 9:00:00, Duration: 30 day, Stop date: 01/30/14 9:00:00 Budesonide No Notes: [facility] 5-07 (Same As: l 14:00: Entocort [place] 00 EC or Budesonide 3 mg EC / ERC) "Do Not Crush" Sertraline No Notes: [facility] 5-07 (Same as: l 14:00: Zoloft) Wing Methocarbam No Notes: Mau agata ol 5-07 (Same l 14:00: as:Robaxin ) aripiprazol No Notes: Mau agata e 5-07 Non-Formul l 14:00: [facility] Wing 00 (Same as: Juvenal) Entocort EC No 9 mg, Mem[facility] 5-07 Route: PO, l 14:00: Drug form: Wing 00 ERCAP, Daily, Dosing Weight 71.818, kg, Start date: 01/01/14 9:00:00, Duration: 30 day, Stop date: 01/30/14 9:00:00 Budesonide No Notes: [facility] 5-07 (Same As: l 14:00: Entocort [place] 00 EC or Budesonide 3 mg EC / ERC) "Do Not Crush" Sertraline No Notes: [facility] 5-07 (Same as: l 14:00: Zoloft) Wing 00 Methocarbam No Notes: Mau agata ol 5-07 (Same l 14:00: as:Robaxin ) aripiprazol No Notes: Mau agata e 5-07 Non-Formul l 14:00: [facility] Wing 00 (Same as: Juvenal) Entocort EC No 9 mg, [facility] 5-07 Route: PO, l 14:00: Drug form: Wing 00 ERCAP, Daily, Dosing Weight 71.818, kg, [...] agata ol 5-07 (Same l 14:00: as:Robaxin Wing ) aripiprazol No Notes: Mau agata e 5-07 Non-Formul l 14:00: [facility] (Same as: ) Entocort EC No 9 mg, Mem[facility] ia 5-07 Route: PO, l 14:00: Drug form: [place] 00 ERCAP, Daily, Dosing Weight 71.818, kg, Start date: 01/01/14 9:00:00, Duration: 30 day, Stop date: 01/30/14 9:00:00 Budesonide No Notes: [facility] 5-07 (Same As: l 14:00: Entocort Wing 00 EC or Budesonide 3 mg EC [...] 5-07 Route: PO, l 14:00: Drug form: Wing 00 ERCAP, Daily, Dosing Weight 71.818, kg, Start date: 01/01/14 9:00:00, Duration: 30 day, Stop date: 01/30/14 9:00:00 Budesonide No Notes: [facility] 5-07 (Same As: l 14:00: Entocort [place] EC or Budesonide 3 mg EC / ERC) "Do Not Crush" Sertraline No Notes: [facility] 5-07 (Same as: l 14:00: Zoloft) Wing 00 Methocarbam No Notes: Mau agata ol [...] ia 5-07 (Same As: l 14:00: Entocort Wing 00 EC or Budesonide 3 mg EC / ERC) "Do Not Crush" Sertraline No Notes: [facility] 5-07 (Same as: l 14:00: Zoloft) Wing Methocarbam No Notes: Mau agata ol 5-07 (Same l 14:00: as:Robaxin [place] 00 ) aripiprazol No Notes: Mau agata e 5-07 Non-Formul l 14:00: [facility] (Same as: [facility]) Entocort EC No 9 mg, Mem[facility] 5-07 Route: PO, l 14:00: Drug form: Wing 00 ERCAP, Daily, Dosing Weight 71.818, kg, Start date: 01/01/14 9:00:00, Duration: 30 day, Stop date: 01/30/14 9:00:00 Budesonide No Notes: [facility] 5-07 (Same As: l 14:00: Entocort [place] 00 EC or Budesonide 3 mg EC / ERC) "Do Not Crush" Sertraline No Notes: [facility] 5-07 (Same as: l 14:00: Zoloft) Wing Methocarbam No Notes: Mau agata ol 5-07 (Same l 14:00: as:Robaxin Wing 00 ) aripiprazol No Notes: Mau agata [...] ia 5-07 (Same as: l 14:00: Zoloft) Wing 00 Methocarbam No Notes: Mau agata ol 5-07 (Same l 14:00: as:Robaxin [place] ) aripiprazol No Notes: Mau agata e 5-07 Non-Formul l 14:00: [facility] (Same as: ) Entocort EC No 9 mg, [facility] 5-07 Route: PO, l 14:00: Drug form: Wing 00 ERCAP, Daily, Dosing Weight 71.818, kg, Start date: 01/01/14 9:00:00, Duration: 30 day, Stop date: 01/30/14 9:00:00 Budesonide No Notes: [facility] 5-07 (Same As: l 14:00: Entocort Wing 00 EC or Budesonide 3 mg EC / ERC) "Do Not Crush" Sertraline No Notes: [facility] 5-07 (Same as: l 14:00: Zoloft) [place] Methocarbam No Notes: Mau agata ol 5-07 (Same l 14:00: as:Robaxin [place] 00 ) aripiprazol No Notes: Mau agata e 5-07 Non-Formul l 14:00: [facility] (Same as: ) Entocort EC No 9 mg, [facility] 5-07 Route: PO, l 14:00: Drug form: [place] 00 ERCAP, Daily, Dosing Weight 71.818, kg, Start date: 01/01/14 9:00:00, Duration: 30 day, Stop date: 01/30/14 9:00:00 Budesonide No Notes: [facility] 5-07 (Same As: l 14:00: Entocort Wing 00 EC or Budesonide 3 mg EC / ERC) "Do Not Crush" Sertraline No Notes: [facility] -07 (Same as: l 14:00: Zoloft) Wing 00 Methocarbam No Notes: Mau agata ol -07 (Same l 14:00: as:Robaxin ) aripiprazol No Notes: Mau agata e 01-01 Non-Formul l 14:00: [facility] [place] 00 (Same as: Abilicyndie) Entocort EC No 9 mg, [facility] 01-01 Route: PO, l 14:00: Drug form: ERCAP, Daily, Dosing Weight 71.818, kg, Start date: 01/01/14 9:00:00, Duration: 30 day, Stop date: 01/30/14 9:00:00 Budesonide No Notes: [facility] -07 (Same As: l 14:00: Entocort EC or Budesonide 3 mg EC / ERC) "Do Not Crush" Protonix No Notes: [facility] 5-07 Tablet l 12:30: should not Wing 00 be chewed or crushed. (Same as: [...] [facility] 5-07 Tablet l 12:30: should not Wing 00 be chewed or crushed. (Same as: Protonix) Protonix No Notes: [facility] 5-07 Tablet l 12:30: should not Wing 00 be chewed or crushed. (Same as: Protonix) Protonix No Notes: [facility] 5-07 Tablet l 12:30: should not [place] 00 be chewed or crushed. (Same as: Protonix) Protonix No Notes: [facility] 5-07 Tablet l 12:30: should not [place] 00 be chewed or crushed. (Same as: Protonix) Protonix No Notes: [facility] 5-07 Tablet l 12:30: should not Wing 00 be chewed or crushed. (Same as: Protonix) Protonix No Notes: [facility] 5-07 Tablet l 12:30: should not Wing 00 be chewed or crushed. (Same as: Protonix) Protonix No Notes: [facility] 5-07 Tablet l 12:30: should not [place] 00 be chewed or crushed. (Same as: Protonix) Protonix No Notes: [facility] 5-07 Tablet l 12:30: should not Wing 00 be chewed or crushed. (Same as: Protonix) Protonix No Notes: [facility] 5-07 Tablet l 12:30: should not [place] 00 be chewed or crushed. (Same as: Protonix) Protonix No Notes: [facility] 5-07 Tablet l 12:30: should not Wing 00 be chewed or crushed. (Same as: Protonix) Protonix No Notes: [facility] 5-07 Tablet l 12:30: should not Wing 00 be chewed or crushed. (Same as: Protonix) Protonix No Notes: [facility] 5-07 Tablet l 12:30: should not [place] 00 be chewed or crushed. (Same as: Protonix) Protonix No Notes: [facility] 5-07 Tablet l 12:30: should not Wing 00 be chewed or crushed. (Same as: Protonix) Dicyclomine No Notes: Mau agata 5-07 (Same as: l 04:30: Bentyl) [place] 00 Dicyclomine 2013- No Notes: Mau agata 5-07 (Same as: l 04:30: Bentyl) [place] 00 Dicyclomine No Notes: Mau agata 5-07 (Same as: l 04:30: Bentyl) [place] 00 Dicyclomine No Notes: Mau agata 5-07 (Same as: l 04:30: Bentyl) Wing Dicyclomine No Notes: Mau agata 5-07 (Same as: l 04:30: Bentyl) [place] Dicyclomine No Notes: Mau agata 5-07 (Same as: l 04:30: Bentyl) Wing Dicyclomine No Notes: Mau agata 5-07 (Same as: l 04:30: Bentyl) Wing Dicyclomine No Notes: Mau agata 5-07 (Same as: l 04:30: Bentyl) [place] Dicyclomine No Notes: Mau agata 5-07 (Same as: l 04:30: Bentyl) Wing Dicyclomine No Notes: Mau agata 5-07 (Same as: l 04:30: Bentyl) Wing Dicyclomine No Notes: Mau agata 5-07 (Same as: l 04:30: Bentyl) Wing Dicyclomine No Notes: Mau agata 5-07 (Same as: l 04:30: Bentyl) [place] Dicyclomine No Notes: Mau agata 5-07 (Same as: l 04:30: Bentyl) [place] Dicyclomine No Notes: Mau agata 5-07 (Same as: l 04:30: Bentyl) [place] Dicyclomine No Notes: Mau agata 5-07 (Same as: l 04:30: Bentyl) Wing Dicyclomine No Notes: Mau agata 5-07 (Same as: l 04:30: Bentyl) [place] Dicyclomine No Notes: Mau agata 5-07 (Same as: l 04:30: Bentyl) Wing Trazodone No Notes: Mem[facility] a Hydrochlori 5-07 (Same As: l de 100 MG 02:00: Desyrel) Herm booker Oral Tablet 00 Zocor No Notes: [facility] 5-07 (Same as: l 02:00: Zocor) [place] Ditropan XL No Notes: Mau agata 5-07 (Same as: l 02:00: Ditropan Wing 00 XL) "Do Not Crush" Pamelor No Notes: [facility] 5-07 (Same l 02:00: as:Pamelor [place] 00 , Aventyl) metoprolol No Notes: [facility] tartrate 5-07 (Same as: l 02:00: Lopressor) [place] Trazodone No Notes: [facility] a Hydrochlori 5-07 (Same As: l de 100 MG 02:00: Desyrel) Herm booker Oral Tablet 00 Zocor No Notes: [facility] 5-07 (Same as: l 02:00: Zocor) Wing Ditropan XL No Notes: Mau agata 5-07 (Same as: l 02:00: Ditropan Wing 00 XL) "Do Not Crush" Pamelor No [...] agata 5-07 (Same as: l 02:00: Ditropan Wing 00 XL) "Do Not Crush" Pamelor No Notes: [facility] 5-07 (Same l 02:00: as:Pamelor Wing 00 , Aventyl) metoprolol No Notes: [facility] tartrate 5-07 (Same as: l 02:00: Lopressor) [place] Trazodone No Notes: [facility] a Hydrochlori 5-07 (Same As: l de 100 MG 02:00: Desyrel) Herm booker Oral Tablet 00 Zocor No Notes: [facility] 5-07 (Same as: l 02:00: Zocor) [place] Ditropan XL No Notes: Mau agata 5-07 (Same as: l 02:00: Ditropan Wing 00 XL) "Do Not Crush" Pamelor No Notes: [facility] 5-07 (Same l 02:00: as:Pamelor [place] 00 , Aventyl) metoprolol No Notes: [facility] tartrate 5-07 (Same as: l 02:00: Lopressor) [place] Trazodone No Notes: [facility] a Hydrochlori 5-07 (Same As: l de 100 MG 02:00: Desyrel) Herm booker Oral Tablet 00 Zocor No Notes: [facility] 5-07 (Same as: l 02:00: Zocor) Wing 00 Ditropan XL No Notes: Mau agata 5-07 (Same as: l 02:00: Ditropan Wing 00 XL) "Do Not Crush" Pamelor No Notes: [facility] 5-07 (Same l 02:00: as:Pamelor [place] 00 , Aventyl) metoprolol No Notes: [facility] tartrate 5-07 (Same as: l 02:00: Lopressor) [place] 00 Trazodone No Notes: [facility] a Hydrochlori 5-07 (Same As: l de 100 MG 02:00: Desyrel) Herm booker Oral Tablet 00 Zocor No Notes: [facility] 5-07 (Same as: l 02:00: Zocor) Wing Ditropan XL No Notes: Mau agata 5-07 (Same as: l 02:00: Ditropan Wing 00 XL) "Do Not Crush" Pamelor No Notes: [facility] 5-07 (Same l 02:00: as:Pamelor [place] 00 , Aventyl) metoprolol No Notes: [facility] tartrate 5-07 (Same as: l 02:00: Lopressor) [place] Trazodone No Notes: [facility] a Hydrochlori 5-07 (Same As: l de 100 MG 02:00: Desyrel) Herm booker Oral Tablet 00 Zocor No Notes: [facility] 5-07 (Same as: l 02:00: Zocor) Wing Ditropan XL No Notes: Mau agata 5-07 [...] agata 5-07 (Same as: l 02:00: Ditropan Wing 00 XL) "Do Not Crush" Pamelor No [...] Notes: [facility] 5-07 (Same l 02:00: as:Pamelor Wing 00 , Aventyl) metoprolol No Notes: [facility] tartrate 5-07 (Same as: l 02:00: Lopressor) Wing Trazodone No Notes: [facility] a Hydrochlori 5-07 (Same As: l de 100 MG 02:00: Desyrel) Herm booker Oral Tablet 00 Zocor No Notes: [facility] 5-07 (Same as: l 02:00: Zocor) Wing Ditropan XL No Notes: Mau agata 5-07 (Same as: l 02:00: Ditropan Wing 00 XL) "Do Not Crush" Pamelor No Notes: [facility] 5-07 (Same l 02:00: as:Pamelor [place] 00 , Aventyl) metoprolol No Notes: [facility] tartrate 5-07 (Same as: l 02:00: Lopressor) Wing Trazodone No Notes: [facility] a Hydrochlori 5-07 (Same As: l de 100 MG 02:00: Desyrel) Herm booker Oral Tablet 00 Zocor No Notes: [facility] 5-07 (Same as: l 02:00: Zocor) Wing Ditropan XL No Notes: Mau agata 5-07 (Same as: l 02:00: Ditropan Wing 00 XL) "Do Not Crush" Pamelor No [...] agata 5-07 (Same as: l 02:00: Ditropan Wing 00 XL) "Do Not Crush" Pamelor No Notes: [facility] 5-07 (Same l 02:00: as:Pamelor Wing 00 , Aventyl) metoprolol No Notes: [facility] tartrate 5-07 (Same as: l 02:00: Lopressor) Wing Trazodone No Notes: [facility] a Hydrochlori 5-07 (Same As: l de 100 MG 02:00: Desyrel) Herm booker Oral Tablet 00 Zocor No Notes: [facility] 5-07 (Same as: l 02:00: Zocor) Wing Ditropan XL No Notes: Mau agata 5-07 (Same as: l 02:00: Ditropan [place] 00 XL) "Do Not Crush" Pamelor No Notes: [facility] 5-07 (Same l 02:00: as:Pamelor Wing 00 , Aventyl) metoprolol No Notes: [facility] tartrate 5-07 (Same as: l 02:00: Lopressor) [place] Trazodone No Notes: [facility] a Hydrochlori 5-07 (Same As: l de 100 MG 02:00: Desyrel) Herm booker Oral Tablet 00 Zocor No Notes: [facility] 5-07 (Same as: l 02:00: Zocor) Wing Ditropan XL No Notes: Mau agata 5-07 (Same as: l 02:00: Ditropan Wing 00 XL) "Do Not Crush" Pamelor No Notes: [facility] 5-07 (Same l 02:00: as:Pamelor [place] 00 , Aventyl) metoprolol No Notes: [facility] ia tartrate 5-07 (Same as: l 02:00: Lopressor) Wing Trazodone No Notes: [facility] a Hydrochlori 5-07 (Same As: l de 100 MG 02:00: Desyrel) Herm booker Oral Tablet 00 Zocor No Notes: [facility] 5-07 (Same as: l 02:00: Zocor) Wing Ditropan XL No Notes: Mau agata 5-07 (Same as: l 02:00: Ditropan [place] 00 XL) "Do Not Crush" Pamelor No Notes: [facility] 5-07 (Same l 02:00: as:Pamelor Wing 00 , Aventyl) metoprolol No Notes: [facility] ia tartrate 5-07 (Same as: l 02:00: Lopressor) [place] Trazodone No Notes: [facility] a Hydrochlori 5-07 (Same As: l de 100 MG 02:00: Desyrel) Herm booker Oral Tablet 00 Zocor No Notes: [facility] 5-07 (Same as: l 02:00: Zocor) [place] 00 Ditropan XL No Notes: Mau agata 5-07 (Same as: l 02:00: Ditropan [place] 00 XL) "Do Not Crush" Pamelor No Notes: [facility] 5-07 (Same l 02:00: as:Pamelor Wing 00 , Aventyl) metoprolol No Notes: [facility] ia tartrate 5-07 (Same as: l 02:00: Lopressor) Wing Trazodone No Notes: [facility] a Hydrochlori 5-07 (Same As: l de 100 MG 02:00: Desyrel) Herm booker Oral Tablet 00 Zocor No Notes: [facility] 5-07 (Same as: l 02:00: Zocor) Wing 00 Ditropan XL No Notes: Mau agata 5-07 (Same as: l 02:00: Ditropan Wing 00 XL) "Do Not Crush" Pamelor No Notes: [facility] 5-07 (Same l 02:00: as:Pamelor Wing 00 , Aventyl) metoprolol No Notes: [facility] tartrate 5-07 (Same as: l 02:00: Lopressor) Wing 00 Pentasa No Notes: [facility] 5-06 (Same as: l 22:00: Pentasa) Wing 00 Do not open capsule. "Do Not Crush" Pentasa No Notes: [facility] 5-06 (Same as: l 22:00: Pentasa) Wing 00 Do not open capsule. "Do Not Crush" Pentasa No Notes: [facility] 5-06 (Same as: l 22:00: Pentasa) Wing 00 Do not open capsule. "Do Not [...] [facility] 5-06 (Same as: l 22:00: Pentasa) Wing 00 Do not open capsule. "Do Not Crush" Pentasa 0 No Notes: [facility] 5-06 (Same as: l 22:00: Pentasa) [place] 00 Do not open capsule. "Do Not Crush" Pentasa 0 No Notes: [facility] 5-06 (Same as: l 22:00: Pentasa) [place] 00 Do not open capsule. "Do Not Crush" Pentasa No Notes: [facility] 5-06 (Same as: l 22:00: Pentasa) Wing 00 Do not open capsule. "Do Not Crush" Pentasa 0 No Notes: [facility] 5-06 (Same as: l 22:00: Pentasa) Wing 00 Do not open capsule. "Do Not Crush" Pentasa 0 No Notes: [facility] 5-06 (Same as: l 22:00: Pentasa) Wing 00 Do not open capsule. "Do Not Crush" Pentasa 0 No Notes: [facility] 5-06 (Same as: l 22:00: Pentasa) [place] 00 Do not open capsule. "Do Not Crush" Pentasa 0 No Notes: [facility] 5-06 (Same as: l 22:00: Pentasa) Wing 00 Do not open capsule. "Do Not Crush" Pentasa 0 No Notes: [facility] 5-06 (Same as: l 22:00: Pentasa) Wing 00 Do not open capsule. "Do Not Crush" Pentasa 2014-0 No Notes: [facility] 5-06 (Same as: l 22:00: Pentasa) [place] 00 Do not open capsule. "Do Not Crush" Pentasa 2013-0 No Notes: [facility] 5-06 (Same as: l 22:00: Pentasa) Wing 00 Do not open capsule. "Do Not Crush" Ketorolac 2013-0 No 4 days. Mau agata Tromethamin 5-06 l e 15 MG/ML 12:43: [place] Injectable 00 Solution Ketorolac 2013-0 No 4 days. Mau agata Tromethamin 5-06 l e 15 MG/ML 12:43: [place] Injectable 00 Solution Ketorolac 2013-0 No 4 days. Mau agata Tromethamin 5-06 l e 15 MG/ML 12:43: Wing Injectable 00 Solution Ketorolac 2013-0 No 4 days. Mau agata Tromethamin 5-06 l e 15 MG/ML 12:43: [place] Injectable 00 Solution Ketorolac 2013-0 No 4 days. Mau agata Tromethamin 5-06 l e 15 MG/ML 12:43: [place] Injectable 00 Solution Ketorolac 2013-0 No 4 days. Mau agata Tromethamin 5-06 l e 15 MG/ML 12:43: Wing Injectable 00 Solution Ketorolac 2013-0 No 4 days. Mau agata Tromethamin 5-06 l e 15 MG/ML 12:43: [place] Injectable 00 Solution Ketorolac 2013-0 No 4 days. Mau agata Tromethamin 5-06 l e 15 MG/ML 12:43: Wing Injectable 00 Solution Ketorolac 2013-0 No 4 [...] Tromethamin 5-06 l e 15 MG/ML 12:43: Wing Injectable 00 Solution Ketorolac 2013-0 No 4 days. Mau agata Tromethamin 5-06 l e 15 MG/ML 12:43: [place] Injectable 00 Solution Ketorolac 2013-0 No 4 days. Mau agata Tromethamin 5-06 l e 15 MG/ML 12:43: [place] Injectable 00 Solution Ketorolac 2013-0 No 4 days. Mau agata Tromethamin 5-06 l e 15 MG/ML 12:43: Wing Injectable 00 Solution Ketorolac 2013-0 No 4 days. Mau agata Tromethamin 5-06 l e 15 MG/ML 12:43: Wing Injectable 00 Solution Nicotine No Notes: [facility] 5-05 (Same as: l 22:00: Habitrol) Wing 00 "Remove old patch before applicatio n of new patch" Nicotine No Notes: [facility] 5-05 (Same as: l 22:00: Habitrol) [place] 00 "Remove old patch before applicatio n of new patch" Nicotine No Notes: [facility] 5-05 (Same as: l 22:00: Habitrol) Wing 00 "Remove old patch before applicatio n of new patch" Nicotine No Notes: [facility] 5-05 (Same as: l 22:00: Habitrol) [place] 00 "Remove old patch before applicatio n of new patch" Nicotine No Notes: [facility] 5-05 (Same as: l 22:00: Habitrol) [place] 00 "Remove old patch before applicatio n of new patch" Nicotine No Notes: [facility] 5-05 (Same as: l 22:00: Habitrol) Wing 00 "Remove old patch before applicatio n of new patch" Nicotine No Notes: [facility] 5-05 (Same as: l 22:00: Habitrol) Wing 00 "Remove old patch before applicatio n of new patch" Nicotine No Notes: [facility] 5-05 (Same as: l 22:00: Habitrol) Wing 00 "Remove old patch before applicatio n of new patch" Nicotine No Notes: [facility] 5-05 (Same as: l 22:00: Habitrol) [place] 00 "Remove old patch before applicatio n of new patch" Nicotine No Notes: [facility] 5-05 (Same as: l 22:00: Habitrol) Wing 00 "Remove old patch before applicatio n of new patch" Nicotine No Notes: [facility] 5-05 (Same as: l 22:00: Habitrol) [place] 00 "Remove old patch before applicatio n of new patch" Nicotine No Notes: [facility] 5-05 (Same as: l 22:00: Habitrol) Wing 00 "Remove old patch before applicatio n of new patch" Nicotine No Notes: [facility] 5-05 (Same as: l 22:00: Habitrol) Wing 00 "Remove old patch before applicatio n of new patch" Nicotine No Notes: [facility] 5-05 (Same as: l 22:00: Habitrol) [place] 00 "Remove old patch before applicatio n of new patch" Nicotine No Notes: [facility] 5-05 (Same as: l 22:00: Habitrol) [place] 00 "Remove old patch before applicatio n of new patch" Nicotine No Notes: [facility] 5-05 (Same as: l 22:00: Habitrol) Wing 00 "Remove old patch before applicatio n of new patch" Nicotine No Notes: [facility] 5-05 (Same as: l 22:00: Habitrol) Wing 00 "Remove old patch before applicatio n [...] over 2 minutes. (Same as: Protonix) Protonix 2013- No Notes: For Mem oria 5-05 IV push l 21:30: reconstitu Wing 00 te with 10 ml 0.9% sodium chloride and push over 2 minutes. (Same as: Protonix) Protonix No Notes: For Mem oria 5-05 IV push l 21:30: reconstitu Wing 00 te with 10 ml 0.9% sodium chloride and push over 2 minutes. (Same as: Protonix) Protonix No Notes: For Mem oria 5-05 IV push l 21:30: reconstitu Wing 00 te with 10 ml 0.9% sodium chloride and push over 2 minutes. (Same as: Protonix) Protonix No Notes: For Mem oria 5-05 IV push l 21:30: reconstitu Wing 00 te with 10 ml 0.9% sodium chloride and push over 2 minutes. (Same as: Protonix) Protonix No Notes: For Mem oria 5-05 IV push l 21:30: reconstitu Wing 00 te with 10 ml 0.9% sodium [...] oria 5-05 IV push l 21:30: reconstitu Wing 00 te with 10 ml 0.9% sodium chloride and push over 2 minutes. (Same as: Protonix) Protonix No Notes: For Mem oria 5-05 IV push l 21:30: reconstitu Wing 00 te with 10 ml 0.9% sodium chloride and push over 2 minutes. (Same as: Protonix) Protonix No Notes: For Mem oria 5-05 IV push l 21:30: reconstitu Wing 00 te with 10 ml 0.9% sodium chloride and push over 2 minutes. (Same as: Protonix) Protonix No Notes: For Mem oria 5-05 IV push l 21:30: reconstitu [place] 00 te with 10 ml 0.9% sodium chloride and push over 2 minutes. (Same as: Protonix) Protonix No Notes: For Mem oria 5-05 IV push l 21:30: reconstitu Wing 00 te with 10 ml 0.9% sodium [...] oria 5-05 IV push l 21:30: reconstitu Wing 00 te with 10 ml 0.9% sodium [...] 4 cap, l Extended 11:54: BID, 0 Wing Release 00 Refill(s) Capsule [Pentasa] sertraline Yes 100 mg = 1 M emoria 100 mg oral 5-05 tab, PO, l tablet 11:54: Daily, # Wing 00 30 tab, 0 Refill(s) dicyclomine Yes [...] 0 Memoria Bicarbonate 5-05 Refill(s) l 11:54: Wing 00 methocarbam Yes 750 mg = 1 [...] 4 cap, l Extended 11:54: BID, 0 Wing Release 00 Refill(s) Capsule [Pentasa] sertraline Yes 100 mg = 1 M emoria 100 mg oral 5-05 tab, PO, l tablet 11:54: Daily, # Wing 00 30 tab, 0 Refill(s) dicyclomine Yes [...] PO, l chloride 10 11:54: Bedtime, # Wing MG Extended 00 30 tab, 0 Release [...] 0 Mem[facility] Bicarbonate 5-05 Refill(s) l 11:54: Wing 00 methocarbam Yes 750 mg = 1 [...] PO, l 3 MG 11:54: Daily, # Wing Extended 00 90 cap, 0 Release Refill(s) [...] 4 cap, l Extended 11:54: BID, 0 Wing Release 00 Refill(s) Capsule [Pentasa] sertraline Yes 100 mg = 1 M emoria 100 mg oral 5-05 tab, PO, l tablet 11:54: Daily, # Wing 00 30 tab, 0 Refill(s) dicyclomine Yes [...] PO, l 3 MG 11:54: Daily, # Wing Extended 00 90 cap, 0 Release Refill(s) [...] cap, PO, l Oral 11:54: Bedtime, # Wing Capsule 00 90 cap, 0 [Pamelor] Refill(s) 24 HR Yes 10 mg = 1 Memoria Oxybutynin 5-05 tab, PO, l chloride 10 11:54: Bedtime, # Wing MG Extended 00 30 tab, 0 Release Refill(s) Tablet [Ditropan] Trazodone Yes 100 mg = 1 Me moria Hydrochlori 5-05 tab, PO, l de 100 MG 11:54: Bedtime, # He rmann Oral Tablet 00 90 tab, 0 Refill(s) Ranitidine Yes 300 mg = 1 M emoria 300 MG Oral 5-05 tab, PO, l Tablet 11:54: Daily, # Wing [Zantac] 00 30 tab, 0 Refill(s) Sodium Yes 0 Memoria Bicarbonate 5-05 Refill(s) l 11:54: Wing 00 methocarbam Yes 750 mg = 1 [...] 4 cap, l Extended 11:54: BID, 0 Wing Release 00 Refill(s) Capsule [Pentasa] sertraline Yes [...] tab, PO, l tablet 11:54: Daily, # Wing 00 30 tab, 0 Refill(s) dicyclomine Yes [...] tab, PO, l Tablet 11:54: Daily, # Wing [Zantac] 00 30 tab, 0 Refill(s) Sodium Yes 0 Memoria Bicarbonate 5-05 Refill(s) l 11:54: Wing 00 methocarbam Yes 750 mg = 1 [...] 4 cap, l Extended 11:54: BID, 0 Wing Release 00 Refill(s) Capsule [Pentasa] sertraline Yes [...] [Ditropan] Trazodone Yes 100 mg = 1 Tn moria Hydrochlori 5-05 tab, PO, l de 100 MG 11:54: Bedtime, # He rmann Oral Tablet 00 90 tab, 0 Refill(s) Ranitidine Yes 300 mg = 1 M emoria 300 MG Oral 5-05 tab, PO, l Tablet 11:54: Daily, # Wing [Zantac] 00 30 tab, 0 Refill(s) Sodium Yes 0 Memoria Bicarbonate 5-05 Refill(s) l 11:54: Wing 00 methocarbam Yes 750 mg = 1 [...] PO, l 3 MG 11:54: Daily, # Wing Extended 00 90 cap, 0 Release Refill(s) [...] tab, PO, l tablet 11:54: Daily, # Wing 00 30 tab, 0 Refill(s) dicyclomine Yes [...] cap, PO, l Oral 11:54: Bedtime, # Nghai Capsule 00 90 cap, 0 [Pamelor] Refill(s) [...] 0 Memoria Bicarbonate 5-05 Refill(s) l 11:54: Wing 00 methocarbam Yes 750 mg = 1 [...] PO, l 3 MG 11:54: Daily, # Wing Extended 00 90 cap, 0 Release Refill(s) [...] 4 cap, l Extended 11:54: BID, 0 Wing Release 00 Refill(s) Capsule [Pentasa] sertraline Yes 100 mg = 1 M emoria 100 mg oral 5-05 tab, PO, l tablet 11:54: Daily, # Wing 00 30 tab, 0 Refill(s) dicyclomine Yes [...] 0 Memoria Bicarbonate 5-05 Refill(s) l 11:54: Wing 00 methocarbam Yes 750 mg = 1 [...] PO, l 3 MG 11:54: Daily, # Wing Extended 00 90 cap, 0 Release Refill(s) [...] tab, PO, l tablet 11:54: Daily, # Wing 00 30 tab, 0 Refill(s) dicyclomine Yes [...] 0 Memoria Bicarbonate 5-05 Refill(s) l 11:54: Wing 00 methocarbam Yes 750 mg = 1 [...] tablet 11:54: Daily, # Nathan rmann 00 30 tab, 0 Refill(s) mesalamine Yes 2,000 mg = M emoria 500 MG 5-05 4 cap, l Extended 11:54: BID, 0 Nghia Release 00 Refill(s) Capsule [Pentasa] sertraline Yes 100 mg = 1 M emoria 100 mg oral 5-05 tab, PO, l tablet 11:54: Daily, # Wing 00 30 tab, 0 Refill(s) dicyclomine Yes [...] cap, PO, l Oral 11:54: Bedtime, # Wing Capsule 00 90 cap, 0 [Pamelor] Refill(s) 24 HR Yes 10 mg = 1 Memoria Oxybutynin 5-05 tab, PO, l chloride 10 11:54: Bedtime, # Wing MG Extended 00 30 tab, 0 Release [...] PO, l 3 MG 11:54: Daily, # Wing Extended 00 90 cap, 0 Release Refill(s) [...] tab, PO, l tablet 11:54: Daily, # Wing 00 30 tab, 0 Refill(s) dicyclomine Yes [...] PO, l 3 MG 11:54: Daily, # Wing Extended 00 90 cap, 0 Release Refill(s) [...] PO, l chloride 10 11:54: Bedtime, # Wing MG Extended 00 30 tab, 0 Release Refill(s) Tablet [Ditropan] Trazodone Yes 100 mg = 1 Me moria Hydrochlori 5-05 tab, PO, l de 100 MG 11:54: Bedtime, # He rmann Oral Tablet 00 90 tab, 0 Refill(s) Ranitidine Yes 300 mg = 1 M emoria 300 MG Oral 5-05 tab, PO, l Tablet 11:54: Daily, # Wing [Zantac] 00 30 tab, 0 Refill(s) Sodium [...] 4 cap, l Extended 11:54: BID, 0 Wing Release 00 Refill(s) Capsule [Pentasa] sertraline Yes [...] 0 [facility] Bicarbonate 5-05 Refill(s) l 11:54: Wing 00 methocarbam Yes 750 mg = 1 [...] tab, PO, l tablet 11:54: Daily, # Wing 00 30 tab, 0 Refill(s) dicyclomine Yes [...] tab, PO, l Tablet 11:54: Daily, # Wing [Zantac] 00 30 tab, 0 Refill(s) Sodium Yes 0 [facility] Bicarbonate 5-05 Refill(s) l 11:54: Wing 00 methocarbam Yes 750 mg = 1 [...] Moncho n 00 tab, 0 Refill(s) mercaptopur 2014-0 Yes 100 MG/M2, Memoria ine 50 mg [...] PO, l 3 MG 11:54: Daily, # Wing Extended 00 90 cap, 0 Release Refill(s) [...] PO, l chloride 10 11:54: Bedtime, # Wing MG Extended 00 30 tab, 0 Release [...] 0 [facility]oria Bicarbonate 5-05 Refill(s) l 11:54: Wing 00 methocarbam Yes 750 mg = 1 [...] Notes: Memoria 5-05 (Same l 09:01: as:MORPhin Wing 00 e Sulfate) Morphine No Notes: [facility]oria 5-05 (Same l 09:01: as:MORPhin [place] 00 e Sulfate) Morphine No Notes: [facility]oria 5-05 (Same l 09:01: as:MORPhin Wing 00 e Sulfate) Morphine No Notes: [facility]oria 5-05 (Same l 09:01: as:MORPhin Wing 00 e Sulfate) Morphine No Notes: Memoria [...] Notes: [facility]oria 5-05 (Same l 09:01: as:MORPhin Wing 00 e Sulfate) Morphine No Notes: [facility] 5-05 (Same l 09:01: as:MORPhin [place] 00 e Sulfate) Morphine No Notes: [facility]oria 5-05 (Same l 09:01: as:MORPhin Wing 00 e Sulfate) Morphine No Notes: [facility] 5-05 (Same l 09:01: as:MORPhin [place] 00 e Sulfate) Morphine No Notes: [facility]oria 5-05 (Same l 09:01: as:MORPhin Wing 00 e Sulfate) Zofran No Notes: [facility]oria 5-05 (Same as: l 09:00: Zofran) Wing Lovenox No Notes: [facility]oria 5-05 (Same as: l 09:00: Lovenox) Wing Zofran No Notes: [facility]oria 5-05 (Same as: l 09:00: Zofran) [place] Lovenox No Notes: [facility]oria 5-05 (Same as: l 09:00: Lovenox) [place] Zofran No Notes: [facility]oria 5-05 (Same as: l 09:00: Zofran) Wing Lovenox No Notes: [facility] 5-05 (Same as: l 09:00: Lovenox) [place] Zofran No Notes: [facility]oria 5-05 (Same as: l 09:00: Zofran) Wing 00 Lovenox No Notes: [facility]oria 5-05 (Same as: l 09:00: Lovenox) Wing 00 Zofran No Notes: [facility]oria 5-05 (Same as: l 09:00: Zofran) [place] 00 Lovenox No Notes: [facility]oria 5-05 (Same as: l 09:00: Lovenox) [place] 00 Zofran No Notes: [facility]oria 5-05 (Same as: l 09:00: Zofran) [place] 00 Lovenox No Notes: [facility]oria 5-05 (Same as: l 09:00: Lovenox) [place] 00 Zofran No Notes: Memoria 5-05 (Same as: l 09:00: Zofran) [place] 00 Lovenox No Notes: Memoria 5-05 (Same as: l 09:00: Lovenox) Wing 00 Zofran No Notes: [facility]oria 5-05 (Same as: l 09:00: Zofran) Wing 00 Lovenox No Notes: [facility] 5-05 (Same as: l 09:00: Lovenox) Wing 00 Zofran No Notes: [facility]oria 5-05 (Same as: l 09:00: Zofran) Wing 00 Lovenox No Notes: [facility]oria 5-05 (Same as: l 09:00: Lovenox) Wing 00 Zofran No Notes: [facility]oria 5-05 (Same as: l 09:00: Zofran) [place] 00 Lovenox No Notes: [facility]oria 5-05 (Same as: l 09:00: Lovenox) Wing 00 Zofran No Notes: [facility] 5-05 (Same as: l 09:00: Zofran) Wing 00 Lovenox No Notes: [facility]oria 5-05 (Same as: l 09:00: Lovenox) Wing 00 Zofran No Notes: [facility]oria 5-05 (Same as: l 09:00: Zofran) [place] 00 Lovenox No Notes: [facility] 5-05 (Same as: l 09:00: Lovenox) Wing 00 Zofran No Notes: [facility]oria 5-05 (Same as: l 09:00: Zofran) [place] 00 Lovenox No Notes: [facility] 5-05 (Same as: l 09:00: Lovenox) Wing 00 Zofran No Notes: [facility]oria 5-05 (Same as: l 09:00: Zofran) Lovenox No Notes: [facility]oria 5-05 (Same as: l 09:00: Lovenox) Wing 00 Zofran No Notes: [facility] 5-05 (Same as: l 09:00: Zofran) Lovenox No Notes: [facility] 5-05 (Same as: l 09:00: Lovenox) Wing 00 Zofran No Notes: Memoria 5-05 (Same [...] Immunizations Ordered Filled Immunization Date Status Comments [facility] e Immunization Name Name SARS-COV-2 COVID-19 2021-05-15 Completed Unive rsity of MODERNA VACCINE 00:00:00 [facility] SARS-COV-2 COVID-19 2021-05-15 Completed Unive rsity of [...] YRS 00:00:00 [place] [facility] 2018-04-13 Completed [facility] 00:[facility]00 [facility] 2018-04-13 Completed [facility] 00:[facility]00 [facility] 2018-04-13 [facility] 2018-04-13 Completed [facility] 00:00:00 [facility] 2018-04-13 Completed [facility] 00:00:00 [facility] 2018-04-13 Completed [facility] 00:00:00 [facility] 2018-04-13 Completed [facility] of 00:00:00 [facility] 2018-04-13 Completed University of 00:00:00 [facility] 2018-04-13 Completed University of 00:00:00 [facility] 2018-04-13 Completed University of 00:00:00 [facility] 2018-04-13 Completed University of 00:00:00 [facility] 2018-04-13 Completed University of 00:00:00 [facility] 2018-04-13 Completed University of 00:00:00 [facility] Vital Signs Vital Name Observation Time Observation Value Comments Source WEIGHT 2023-03-14 12:02:00 60.646 kg WEIGHT 2023-03-14 12:02:00 60.646 kg WEIGHT 2023-01-10 13:58:00 60.51 kg WEIGHT 2023-01-10 13:58:00 60.51 kg Systolic blood 2022-12-06 18:27:00 120 mm[Hg] Univer sity of pressure [facility] Diastolic blood 2022-12-06 18:27:00 75 mm[Hg] Unive rsity of pressure [facility] Heart rate 2022-12-06 18:27:00 54 /min [facility] Respiratory rate 2022-12-06 18:27:00 16 /min Univ ersity of [facility] Body height 2022-12-06 18:27:00 154.9 cm [facility] Body weight 2022-12-06 18:27:00 58.786 kg [facility] BMI 2022-12-06 18:27:00 24.49 kg/m2 [facility] Oxygen saturation in 2022-12-06 18:27:00 93 /min [facility] Arterial blood by [facility] Pulse oximetry Branch HEIGHT 2022-09-13 11:50:00 153.7 [...] blood 2021-11-30 15:18:00 160 mm[Hg] Univer sity [facility] Diastolic blood 2021-11-30 15:18:00 82 [facility]Hg[facility] 2021-11-30 14:45:00 59 /min [facility] Body temperature 2021-11-30 14:45:00 36.56 Carla [facility] Respiratory rate 2021-11-30 14:45:00 18 /min [facility] Body height 2021-11-30 14:45:00 154.9 cm [facility] Body weight 2021-11-30 14:45:00 58.832 kg [facility] BMI 2021-11-30 14:45:00 24.51 kg/m2 [facility] Heart rate 2022-09-13 11:50:00 60 /min [facility] Body temperature 2022-09-13 11:50:00 36.22 Carla [facility] Respiratory rate 2022-09-13 11:50:00 16 /min [facility] Body height 2022-09-13 11:50:00 153.7 cm actual [facility] Body weight 2022-09-13 11:50:00 58.741 kg [facility] BMI 2022-09-13 11:50:00 24.87 kg/m2 [facility] Oxygen saturation in 2022-09-13 11:50:00 96 /min [facility] Arterial blood by Medical Ce [facility]ter Pulse oximetry Systolic blood 2022-06-21 14:37:00 154 mm[Hg] [facility] Diastolic blood 2022-06-21 14:37:00 85 mm[Hg] [facility] Heart rate 2022-06-21 14:37:00 86 /min [facility] Body temperature 2022-06-21 14:37:00 36.28 Carla [facility] Respiratory rate 2022-06-21 14:37:00 18 /min [facility] Body height 2022-06-21 14:37:00 154.9 cm [facility] Body weight 2022-06-21 14:37:00 58.65 kg [facility] BMI 2022-06-21 14:37:00 24.43 kg/m2 [facility] Oxygen saturation in 2022-06-21 14:37:00 95 /min [facility] Arterial blood by Medical Ce [facility]ter Pulse oximetry Weight 2014-05-16 14:54:00 [facility] BMI Calculated 2014-05-16 14:54:00 Morgan [facility] Wing Height 2014-05-16 14:54:00 160.02 cm [facility] Respitory Rate 2014-01-02 20:58:00 Memori al Wing Heart Rate 2014-01-02 20:58:00 [facility] [place] Temperature Oral (F) 2014-01-02 20:58:00 98.4 F [facility] Diastolic (mm Hg) 2014-01-02 20:58:00 Mem orial [place] Systolic (mm Hg) 2014-01-02 20:58:00 Mau rial [place] Temperature Oral (F) 2014-01-02 16:23:00 98.2 F [facility] Heart Rate 2014-01-02 16:23:00 [facility] [place] Respitory Rate 2014-01-02 16:23:00 Memori al Wing Systolic (mm Hg) 2014-01-02 16:23:00 Mau rial [place] Diastolic (mm Hg) 2014-01-02 16:23:00 Mem orial Wing Diastolic (mm Hg) 2014-01-02 12:20:00 Mem orial Wing Systolic (mm Hg) 2014-01-02 12:20:00 Mau agatal [place] Respitory Rate 2014-01-02 12:20:00 Morgan churchill Wing Temperature Oral (F) 2014-01-02 12:20:00 98.5 F [facility] Heart Rate 2014-01-02 12:20:00 [facility] Weight 2013-12-30 08:54:00 [facility] Height 2013-12-30 08:54:00 162.56 cm [facility] BMI Calculated 2013-12-30 08:54:00 [facility] [place] Weight 2013-12-30 08:52:00 [facility] BMI Calculated 2013-12-30 08:52:00 Memori al [place] Height 2013-12-30 08:52:00 162.56 cm [facility] Weight 2013-12-30 08:40:00 [facility] BMI Calculated 2013-12-30 08:40:00 Memori al [place] Height 2013-12-30 08:40:00 162.56 cm [facility] Procedures Procedure Date / Time Performing Clinician Source Performed ASSIGNMENT OF BENEFITS 2022-12-06 18:06:09 Doctor Unassigned, No [facility] CBC W/PLT COUNT & AUTO 2022-09-13 11:59:00 Jae Poole Howie [facility] DIFFERENTIAL Center COMPREHENSIVE METABOLIC 2022-09-13 11:59:00 Jae Poole Howie [facility] PANEL Center CBC W/PLT COUNT & AUTO 2022-09-13 11:59:00 Jae Poole Howie [facility] DIFFERENTIAL Center CT HEART-CORONARY 2022-07-18 15:37:00 Johnny Pantoja [facility] ARTERIES CALCIUM SCORE Center SCREENING WITHOUT IV CONTRAST 2D ECHO W/ DOPPLER 2022-07-18 13:04:08 Johnny Pantoja [facility] (CW/PW/COLOR) [facility] ECG 12-LEAD 2022-06-21 14:31:02 Jae Poole [facility] ECG 12-LEAD 2022-06-21 14:31:02 Unknown, Hl7 [facility] CBC W/PLT COUNT & AUTO 2022-06-21 14:30[facility] DIFFERENTIAL Center COMPREHENSIVE METABOLIC 2022-06-21 14:30:00 [facility] PANEL Center CBC W/PLT COUNT & AUTO 2022-06-21 14:30:00 [facility] DIFFERENTIAL Center NM MYOCARDIAL PERFUSION 2022-05-16 16:14:00 [facility] SPECT, PHARM Center APTT 2022-05-16 15:02:00 [facility] TREADMILL 2022-05-16 13:51:06 Unknown, Hl7 [facility](NON-NUCLEAR Center TREADMILL) ECG 12-LEAD 2022-05-16 13:28:19 Unknown, Hl7 [facility] ECG 12-LEAD 2022-05-16 13:28:19 Unknown, Hl7 [facility] ECG 12-LEAD 2022-05-16 13:27:51 Unknown, Hl7 [facility] ECG 12-LEAD 2022-05-16 13:27:51 Unknown, Hl7 [facility] APTT 2022-05-16 03:57:00 [facility] CBC (HEMOGRAM ONLY) 2022-05-16 03:57:00 Leanne Mcdonnell [facility] BASIC METABOLIC PANEL 2022-05-16 03:57:00 Leanne Mcdonnell [facility] MAGNESIUM 2022-05-16 03:57:00 Leanne Mcdonnell [facility] APTT 2022-05-15 16:09:00 [facility] CBC (HEMOGRAM ONLY) 2022-05-15 05:43:00 [facility] APTT 2022-05-15 05:43:00 [facility] ECG 12-LEAD 2022-05-15 01:50:44 Unknown, Hl7 Doctor [facility] ECG 12-LEAD 2022-05-15 01:50:44 [facility] 2022-05-15 01:30[facility]00 [facility] 12-LEAD 2022-05-14 23:03:01 [facility]AD 2022-05-14 23:03:01 Unknown, Hl7 Doctor [facility] PLATELET COUNT 2022-05-14 22:47:00 [facility] 2022-05-14 22:47:00 [facility] LIPID PANEL 2022-05-14 22:47:00 [facility] HIGH SENSITIVITY 2022-05-14 22:47:00 [facility] TROPONIN I [place] SARS-COV2/RT-PCR ([facility] & 2022-05-14 21:18:00 [facility] REF LABS) [place] HIGH SENSITIVITY 2022-05-14 18:33:00 Andrew Hernandez [facility] TROPONIN I [facility] ECG 12-LEAD 2022-05-14 18:29:[address] [facility] ECG 12-LEAD 2022-05-14 18:29:48 Unknown, Hl7 Doctor [facility] CBC W/PLT COUNT & AUTO 2022-05-14 16:55:00 Andrew Hernandez [facility] DIFFERENTIAL [facility] CBC W/PLT COUNT & AUTO 2022-05-14 16:55:00 Andrew Hernandez [facility] DIFFERENTIAL [facility] COMPREHENSIVE METABOLIC 2022-05-14 16:55:00 Andrew Hernandez [facility] Medical PANEL [facility] HIGH SENSITIVITY 2022-05-14 16:55:00 Andrew Hernandez [facility] TROPONIN [facility] XR CHEST 2 VIEWS 2022-05-14 16:30:00 Andrew Hernandez [facility] ECG 12-LEAD 2022-05-14 16:13:36 Unknown, Hl7 Doctor [facility] ECG 12-LEAD 2022-05-14 16:13:36 Noé, Claudia [facility] EKG-SCANNED 2022-05-14 00:00:00 Provider, Default [facility] Abdominal aorta [facility] angiogram Abdominal hysterectomy [facility] Angiography of renal [facility] arteries, bilateral Appendectomy [facility] Superior mesenteric [facility] angiography Suspension of bladder [facility] Tonsillectomy [facility] Bladder augmentation [facility] Plan of Care Planned Activity Planned Date Details Comments Source Future Scheduled 2028-04-13 DTAP/TDAP/TD VACCINES [facility] (2 - Td or Tdap) [code Medic al Center = DTAP/TDAP/TD VACCINES (2 - Td or Tdap)] Future Scheduled 2028-04-13 DTAP/TDAP/TD VACCINES [facility] 00:00:00 (2 - Td or Tdap) [code Medic al Center = DTAP/TDAP/TD VACCINES (2 - Td or Tdap)] Future Scheduled 2028-04-13 DTAP/TDAP/TD VACCINES [facility] 00:00:00 (2 - Td or Tdap) [code Medic al Center = DTAP/TDAP/TD VACCINES (2 - Td or Tdap)] Future Scheduled 2028-04-13 DTAP/TDAP/TD VACCINES [facility] 00:00:00 (2 - Td or Tdap) [code Medic al Center = DTAP/TDAP/TD VACCINES (2 - Td or Tdap)] Future Scheduled 2028-04-13 DTAP/TDAP/TD VACCINES [facility] 00:00:00 (2 - Td or Tdap) [code Medic al Center = DTAP/TDAP/TD VACCINES (2 - Td or Tdap)] Future Scheduled 2028-04-13 DTAP/TDAP/TD VACCINES [facility] 00:00:00 (2 - Td or Tdap) [code Medic al Center = DTAP/TDAP/TD VACCINES (2 - Td or Tdap)] Future Scheduled 2025-05-[address] [facility]00 (procedure) [code = [facility] [id number]] Future Scheduled 2025-05-[address] [facility]:00 (procedure) [code = [facility] [id number]] Future Scheduled 2025-05-[address] [facility] Test 00:00:00 (procedure) [code = [facility] [id number]] Future Scheduled 2025-05-[address] [facility] Test 00:00:00 (procedure) [code = [facility] [id number]] Future Scheduled 2025-05-[address] [facility] Test 00:00:00 (procedure) [code = [facility] [id number]] Future Scheduled 2025-05-[address] [facility] Test 00:00:00 (procedure) [code = [facility] [id number]] Future Scheduled 2023-05-28 IMM Influenza Seasonal H [...] 17 yrs)] Future Scheduled 2023-04-[address] [facility] Test 00:00:00 (Season Ended) [code = [facility] INFLUENZA VACCINE (Season Ended)] Future Scheduled 2023-03-01 [facility] Test 14:23:18 malignant neoplasm of colon (procedure) [code = [id number]] Future Scheduled 2023-03-01 [facility] Test 14:23:18 malignant neoplasm of colon (procedure) [code = 212796703] Future Scheduled 2023-03-01 [facility] Test 14:23:18 malignant neoplasm of colon (procedure) [code = 687201636] Future Scheduled 2023-03-01 COVID-19 VACCINE (#1) Me [facility] Test 14:23:18 [code = COVID-19 VACCINE (#1)] Future Scheduled 2023-03-01 [facility] Test 14:23:18 malignant neoplasm of cervix (procedure) [code = 064424158] Future Scheduled 2023-03-01 [facility] Test 14:23:18 malignant neoplasm of colon (procedure) [code = 463136757] Future Scheduled 2023-03-01 [facility] Test 14:23:18 malignant neoplasm of colon (procedure) [code = 096234907] Future Scheduled 2023-03-01 SHINGLES VACCINES (1 Met [facility] Test 14:23:18 of 2) [code = SHINGLES VACCINES (1 of 2)] Future Scheduled 2023-03-01 BREAST CANCER [facility] Test 14:23:18 SCREENING [code = BREAST CANCER SCREENING] Future Scheduled 2023-03-01 INFLUENZA VACCINE [facility] Test 14:23:18 [code = INFLUENZA VACCINE] Future Scheduled 2023-01-17 Hepatitis C screening [facility] Test 07:58:38 (procedure) [code = [id number]] Future Scheduled 2023-01-17 [facility] for [facility] Test 07:58:38 malignant neoplasm of cervix (procedure) [code = 939567441] Future Scheduled 2023-01-17 COLONOSCOPY SCREENING [facility] Test 07:58:38 [code = COLONOSCOPY SCREENING] Future Scheduled 2023-01-17 SHINGLES VACCINES (1 [facility] Test 07:58:38 of 2) [code = SHINGLES VACCINES (1 of 2)] Future Scheduled 2023-01-17 BREAST CANCER [facility] Test 07:58:38 SCREENING [code = BREAST CANCER SCREENING] Future Scheduled 2023-01-17 INFLUENZA VACCINE Method [facility] Hospital Test 07:58:38 [code = INFLUENZA VACCINE] Future Scheduled 2023-01-17 COVID-19 VACCINE (#1) [facility] Test 07:58:38 [code = COVID-19 VACCINE (#1)] Future Scheduled 2023-01-17 Pneumococcal Vaccine: [facility] Hospital Test 07:58:38 Pediatrics (0 to 5 Years) and At-Risk Patients (6 to 64 Years) (1 - PCV) [code = Pneumococcal Vaccine: Pediatrics (0 to 5 Years) and At-Risk Patients (6 to 64 Years) (1 - PCV)] Future Scheduled 2022-08-[address] [facility] 00:[facility]00 WELLNESS (YEAR 2 or Medical Center FIRST YEAR if no IPPE) [code = MEDICARE ANNUAL WELLNESS (YEAR 2 or FIRST YEAR if no IPPE)] Future Scheduled 2022-08-[address] [facility] 00:00:00 WELLNESS (YEAR 2 or Medical Center FIRST YEAR if no IPPE) [code = MEDICARE ANNUAL WELLNESS (YEAR 2 or FIRST YEAR if no IPPE)] Future Scheduled 2022-08-[address] [facility] 00:00:00 WELLNESS (YEAR 2 or Medical Center FIRST YEAR if no IPPE) [code = MEDICARE ANNUAL WELLNESS (YEAR 2 or FIRST YEAR if no IPPE)] Future Scheduled 2022-08-[address] [facility] 00:00:00 WELLNESS (YEAR 2 or Medical Center FIRST YEAR if no IPPE) [code = MEDICARE ANNUAL WELLNESS (YEAR 2 or FIRST YEAR if no IPPE)] Future Scheduled 2022-08-[address] [facility] 00:00:00 WELLNESS (YEAR 2 or Medical Center FIRST YEAR if no IPPE) [code = MEDICARE ANNUAL WELLNESS (YEAR 2 or FIRST YEAR if no IPPE)] Future Scheduled 2022-08-[address] [facility] 00:00:00 WELLNESS (YEAR 2 or Medical Center FIRST YEAR if no IPPE) [code = MEDICARE ANNUAL WELLNESS (YEAR 2 or FIRST YEAR if no IPPE)] Future Scheduled 2022-08-17 INFLUENZA VACCINE [facility] Test 18:22:05 [code = INFLUENZA VACCINE] Future Scheduled 2022-08-17 COVID-19 VACCINE (#1) [facility] Test 18:22:05 [code = COVID-19 VACCINE (#1)] Future Scheduled 2022-08-17 Screening for [facility] Test 18:22:05 malignant neoplasm of cervix (procedure) [code = [id number]] Future Scheduled 2022-08-17 COLONOSCOPY SCREENING [facility] Test 18:22:05 [code = COLONOSCOPY SCREENING] Future Scheduled 2022-08-17 SHINGLES VACCINES (1 Met [facility] Test 18:22:05 of 2) [code = SHINGLES VACCINES (1 of 2)] Future Scheduled 2022-08-17 BREAST CANCER [facility] Test 18:22:05 SCREENING [code = BREAST CANCER SCREENING] Future Scheduled 2022-08-17 INFLUENZA VACCINE [facility] Test 18:22:05 [code = INFLUENZA VACCINE] Future Scheduled 2022-08-17 COVID-19 VACCINE (#1) [facility] Test 18:22:05 [code = COVID-19 VACCINE (#1)] Future Scheduled 2022-08-17 [facility] for [facility] Test 18:22:05 malignant neoplasm of cervix (procedure) [code = 477827298] Future Scheduled 2022-08-17 COLONOSCOPY SCREENING [facility] Test 18:22:05 [code = COLONOSCOPY SCREENING] Future Scheduled 2022-08-17 SHINGLES VACCINES (1 Met [facility] Test 18:22:05 of 2) [code = SHINGLES VACCINES (1 of 2)] Future Scheduled 2022-08-17 BREAST CANCER [facility] Test 18:22:05 SCREENING [code = BREAST CANCER SCREENING] Future Scheduled 2022-08-17 INFLUENZA VACCINE [facility] Test 18:22:05 [code = INFLUENZA VACCINE] Future Scheduled 2022-08-17 COVID-19 VACCINE (#1) [facility] Test 18:22:05 [code = COVID-19 VACCINE (#1)] Future Scheduled 2022-08-17 Screening for [facility] Test 18:22:05 malignant neoplasm of cervix (procedure) [code = 510678041] Future Scheduled 2022-08-17 COLONOSCOPY SCREENING [facility] Test 18:22:05 [code = COLONOSCOPY SCREENING] Future Scheduled 2022-08-17 SHINGLES VACCINES (1 Met [facility] Test 18:22:05 of 2) [code = SHINGLES VACCINES (1 of 2)] Future Scheduled 2022-08-17 BREAST CANCER [facility] Test 18:22:05 SCREENING [code = BREAST CANCER SCREENING] Future Scheduled 2022-05-28 IMM Influenza [facility]al [facility] [code = INFLUENZA Medical Ce nter VACCINE (#1)] Future Scheduled 2022-04-28 INFLUENZA VACCINE (#1) [facility] [code = INFLUENZA Medical Ce nter VACCINE (#1)] Future Scheduled 2022-04-28 INFLUENZA VACCINE (#1) [facility] 00:00:00 [code = INFLUENZA Medical Ce nter VACCINE (#1)] Future Scheduled 2022-04-28 INFLUENZA VACCINE (#1) [facility] 00:00:00 [code = INFLUENZA Medical Ce nter VACCINE (#1)] Future Scheduled 2022-04-28 INFLUENZA VACCINE (#1) [facility] 00:00:00 [code = INFLUENZA Medical Ce nter VACCINE (#1)] Future Scheduled 2022-04-26 HEPATITIS B VACCINES Met [facility] Test 16:18:33 (1 of 3 - 3-dose series) [code = HEPATITIS B VACCINES (1 of 3 - 3-dose series)] Future Scheduled 2022-04-26 COVID-19 VACCINE (#1) [facility] Test 16:18:33 [code = COVID-19 VACCINE (#1)] Future Scheduled 2022-04-26 Screening for [facility] Test 16:18:33 malignant neoplasm of cervix (procedure) [code = 093867287] Future Scheduled 2022-04-26 COLONOSCOPY SCREENING [facility] Test 16:18:33 [code = COLONOSCOPY SCREENING] Future Scheduled 2022-04-26 SHINGLES VACCINES (1 Met [facility] Test 16:18:33 of 2) [code = SHINGLES VACCINES (1 of 2)] Future Scheduled 2022-04-26 BREAST CANCER [facility] Test 16:18:33 SCREENING [code = BREAST CANCER SCREENING] Future Scheduled 2022-04-26 [facility]ACCINE [facility] 16:18:33 [code = INFLUENZA VACCINE] Future Scheduled 2021-11-03 COVID-19 VACCINE (1) Met [facility] Test 06:47:29 [code = COVID-19 VACCINE (1)] Future Scheduled 2021-11-03 Screening for [facility] Test 06:47:29 malignant neoplasm of cervix (procedure) [code = 550166995] Future Scheduled 2021-11-03 COLONOSCOPY SCREENING [facility] Test 06:47:29 [code = COLONOSCOPY SCREENING] Future Scheduled 2021-11-03 SHINGLES VACCINES (#1) [facility] Test 06:47:29 [code = SHINGLES VACCINES (#1)] Future Scheduled 2021-11-03 BREAST CANCER [facility] Test 06:47:29 SCREENING [code = BREAST CANCER SCREENING] Future Scheduled 2021-11-03 INFLUENZA VACCINE Method [facility] Test 06:47:29 [code = INFLUENZA VACCINE] Future Scheduled 2021-10-15 COVID-19 VACCINE (3 - [...] [facility]00 Booster for [facility] series) [code = COVID-19 VACCINE (3 - Booster for Modern series)] Future Scheduled 2021-05-28 IMM Influenza Seasonal [...] malignant neoplasm of colon (procedure) [code = 449505661] Future Scheduled 2013 [facility]00 malignant neoplasm of colon (procedure) [code = 510596074] Future Scheduled 2013 [facility] 00:00:00 malignant neoplasm of colon (procedure) [code = 235537866] Future Scheduled 2013 [facility] 00:00:00 malignant neoplasm of colon (procedure) [code = 127569842] Future Scheduled 2013 [facility] 00:00:00 malignant neoplasm of colon (procedure) [code = 293740309] Future Scheduled 2013 [facility] 00:00:00 malignant neoplasm of colon (procedure) [code = 629615904] Future Scheduled 2013 [facility] 00:00:00 malignant neoplasm of colon (procedure) [code = 199387794] Future Scheduled 2013 [facility] 00:00:00 malignant neoplasm of colon (procedure) [code = 065485129] Future Scheduled 2013 [facility] 00:00:00 malignant neoplasm of colon (procedure) [code = 714411589] Future Scheduled 2013 Screening for [facility] Test 00:00:00 malignant neoplasm of colon (procedure) [code = 515143495] Future Scheduled 2013 SHINGLES VACCINES ([address] [facility] Test 00:00:00 of 2) [code = SHINGLES Medic al Center VACCINES (1 of 2)] Future Scheduled 2013 SHINGLES VACCINES ([address] [facility] Test 00:00:00 of 2) [code = SHINGLES Medic al Center VACCINES (1 of 2)] Future Scheduled 2013 SHINGLES VACCINES ([address] [facility] Test 00:00:00 of 2) [code = SHINGLES Medic al Center VACCINES (1 of 2)] Future Scheduled 2013 SHINGLES VACCINES ([address] [facility] Test 00:00:00 of 2) [code = SHINGLES Medic al Center VACCINES (1 of 2)] Future Scheduled 2013 SHINGLES VACCINES ([address] [facility] Test 00:00:00 of 2) [code = SHINGLES Medic al Center VACCINES (1 of 2)] Future Scheduled 2013 SHINGLES VACCINES ([address] [facility] Test 00:00:00 of 2) [code = SHINGLES Medic al Center VACCINES (1 of 2)] Future Scheduled [...] malignant neoplasm of cervix (procedure) [code = 202705489] Future Scheduled 1993 [facility] 00:[facility]:00 malignant neoplasm of cervix (procedure) [code = 927296363] Future Scheduled 1993 [facility] 00:00:00 malignant neoplasm of cervix (procedure) [code = 794373532] Future Scheduled 1993 [facility] 00:00:00 malignant neoplasm of cervix (procedure) [code = 715657658] Future Scheduled 1993 [facility] 00:00:00 malignant neoplasm of cervix (procedure) [code = 710976759] Future Scheduled 1993 [facility] 00:00:00 malignant neoplasm of cervix (procedure) [code = 096499221] Future Scheduled 1993 [facility] 00:00:00 malignant neoplasm of cervix (procedure) [code = 412213413] Future Scheduled 1993 [facility] 00:00:00 malignant neoplasm of cervix (procedure) [code = 203662366] Future Scheduled 1993 [facility] 00:00:00 malignant neoplasm of cervix (procedure) [code = 425617131] Future Scheduled 1993 [facility] 00:00:00 malignant neoplasm of cervix (procedure) [code = 838991753] Future Scheduled 1993 [facility] 00:00:00 malignant neoplasm of cervix (procedure) [code = 285486842] Future Scheduled 1993 [facility] 00:00:00 malignant neoplasm of cervix (procedure) [code = 897708487] Future Scheduled 1993 [facility] 00:00:00 malignant neoplasm of cervix (procedure) [code = 576094021] Future Scheduled 1993 [facility] 00:00:00 malignant neoplasm of cervix (procedure) [code = 867478849] Future Scheduled 1993 [facility] 00:00:00 malignant neoplasm of cervix (procedure) [code = 629939250] Future Scheduled 1993 [facility] 00:00:00 malignant neoplasm of cervix (procedure) [code = 990405419] Future Scheduled 1993 [facility] 00:00:00 malignant neoplasm of cervix (procedure) [code = 845005846] Future Scheduled 1993 [facility] 00:00:00 malignant neoplasm of cervix (procedure) [code = 533864905] Future Scheduled 1993 [facility] 00:00:00 malignant neoplasm of cervix (procedure) [code = 043199689] Future Scheduled 1993 [facility] 00:00:00 malignant neoplasm of cervix (procedure) [code = 900512997] Future Scheduled 1984-02-[address] [facility] 00:[facility] malignant neoplasm of [facility] Center cervix (procedure) [code = 708494478] Future Scheduled 1984-02-[address] [facility] Test 00:00:00 malignant neoplasm of [facility] Center cervix (procedure) [code = 682484538] Future Scheduled 1984-02-[address] [facility] Test 00:00:00 malignant neoplasm of [facility] Center cervix (procedure) [code = 179472656] Future Scheduled 1984-02-[address] [facility] Test 00:00:00 malignant neoplasm of [facility] Center cervix (procedure) [code = 229362671] Future Scheduled 1984-02-[address] [facility] Test 00:00:00 malignant neoplasm of [facility]ica [facility] Center cervix (procedure) [code = 928609987] Future Scheduled 1984-02-[address] [facility] Test 00:00:00 malignant neoplasm of [facility] cervix (procedure) [code = 083799878] Future Scheduled 1981 HEPATITIS C SCREENING CH [...] SCREENING] Future Scheduled 1975 COVID-19 Vaccine (1) [facility] Test 00:00:00 [code = COVID-19 Vaccine (1)] Future Scheduled [address] [facility] Test 00:00:00 Counseling and Medical Cente r Screening (12+) [code = Tobacco Cessation Counseling and Screening (12+)] Future Scheduled [address] [facility] Test 00:00:00 Counseling and Medical Cente r Screening (12+) [code = Tobacco Cessation Counseling and Screening (12+)] Future Scheduled [address] [facility] Test 00:00:00 Counseling and Medical Cente r Screening (12+) [code = Tobacco Cessation Counseling and Screening (12+)] Future Scheduled [address] [facility] Test 00:00:00 Counseling and Medical Cente r Screening (12+) [code = Tobacco Cessation Counseling and Screening (12+)] Future Scheduled [address] [facility] Test 00:00:00 Counseling and Medical Cente r Screening (12+) [code = Tobacco Cessation Counseling and Screening (12+)] Future Scheduled [address] [facility] Test 00:00:00 Counseling and Medical Cente r Screening (12+) [code = Tobacco Cessation Counseling and Screening (12+)] Future Scheduled 1969 Imm Pneumococcal 0-64 [facility] Test 00:00:00 (1 of 2 - PPSV23) [code = Imm Pneumococcal 0-64 (1 of 2 - PPSV23)] Future Scheduled 1969 Imm Pneumococcal 0-64 [facility] Test 00:00:00 (1 of 2 - PPSV23) [code = Imm Pneumococcal 0-64 (1 of 2 - PPSV23)] Future Scheduled [address] [facility] Test 00:00:00 0-64 YRS (1 - PCV) Medical C enter [code = PNEUMOCOCCAL VACCINE 0-64 YRS (1 - PCV)] Future Scheduled [address] [facility] Test 00:00:00 0-64 YRS (1 - PCV) Medical C enter [code = PNEUMOCOCCAL VACCINE 0-64 YRS (1 - PCV)] Future Scheduled [address] [facility] Test 00:00:00 0-64 YRS (1 - PCV) Medical C enter [code = PNEUMOCOCCAL VACCINE 0-64 YRS (1 - PCV)] Future Scheduled [address] [facility] Test 00:00:00 0-64 YRS (1 - PCV) Medical C enter [code = PNEUMOCOCCAL VACCINE 0-64 YRS (1 - PCV)] Future Scheduled [address] [facility] Test 00:00:00 0-64 YRS (1 - PCV) Medical C enter [code = PNEUMOCOCCAL VACCINE 0-64 YRS (1 - PCV)] Future Scheduled [address] [facility] Test 00:00:00 0-64 YRS (1 - PCV) Medical C enter [code = PNEUMOCOCCAL VACCINE 0-64 YRS (1 - PCV)] [...] Test 00:00:00 = Fluoride Varnish] Future Scheduled [address] [facility] Test 00:00:00 malignant neoplasm of Medica l Center breast (procedure) [code = 017841275] Future Scheduled [address] [facility] Test 00:00:00 (combo) [code = CT Medical C enter Colonography (combo)] Future Scheduled [address] [facility] Test 00:00:00 malignant neoplasm of [facility] Center colon (procedure) [code = 902301187] Future Scheduled [address] [facility] Test 00:00:00 malignant neoplasm of [facility] Center colon (procedure) [code = 918583320] Future Scheduled [address] [facility] Test 00:00:00 malignant neoplasm of [facility] Center colon (procedure) [code = 559941971] Future Scheduled [address] [facility] Test 00:00:00 malignant neoplasm of [facility] Center colon (procedure) [code = 276522798] Future Scheduled 1963 Sigmoidoscopy [facility]oscopy] Medical Kaee r Future Scheduled [address] [facility] Test 00:00:00 malignant neoplasm of [facility] Center breast (procedure) [code = 291590367] Future Scheduled [address] [facility] 00:00:00 (combo) [code = CT Medical C enter Colonography (combo)] Future Scheduled [address] [facility] Test 00:00:00 malignant neoplasm of [facility]ica [facility] Center colon (procedure) [code = 919915915] Future Scheduled [address] [facility] Test 00:00:00 malignant neoplasm of [facility] Center colon (procedure) [code = 422815246] Future Scheduled [address] [facility] Test 00:00:00 malignant neoplasm of [facility] Center colon (procedure) [code = 840153479] Future Scheduled [address] [facility] Test 00:00:00 malignant neoplasm of [facility] Center colon (procedure) [code = 732602588] Future Scheduled 1963 S[facility]oidoscopy [facility]oscopy] Medical King r Future Scheduled [address] [facility] Test 00:00:00 malignant neoplasm of [facility] Center breast (procedure) [code = 783569268] Future Scheduled [address] [facility] Test 00:00:00 (combo) [code = CT Medical C enter Colonography (combo)] Future Scheduled [address] [facility] Test 00:00:00 malignant neoplasm of [facility] Center colon (procedure) [code = 155228956] Future Scheduled [address] [facility] Test 00:00:00 malignant neoplasm of [facility] colon (procedure) [code = 609838847] Future Scheduled [address] [facility] Test 00:00:00 malignant neoplasm of [facility] Center colon (procedure) [code = 800757162] Future Scheduled [address] [facility] Test 00:00:00 malignant neoplasm of [facility] Center colon (procedure) [code = 317999191] Future Scheduled 1963 [facility]oidoscopy [facility]] Medical Cente r Future Scheduled [address] [facility] Test 00:00:00 malignant neoplasm of [facility] Center breast (procedure) [code = 176378096] Future Scheduled [address] [facility] 00:00:00 (combo) [code = CT Medical C enter Colonography (combo)] Future Scheduled [address] [facility] Test 00:00:00 malignant neoplasm of [facility] Center colon (procedure) [code = 646387160] Future Scheduled [address] [facility] Test 00:00:00 malignant neoplasm of [facility] Center colon (procedure) [code = 869457803] Future Scheduled [address] [facility] Test 00:00:00 malignant neoplasm of [facility] Center colon (procedure) [code = 646224326] Future Scheduled [address] [facility] Test 00:00:00 malignant neoplasm of [facility]ica [facility] Center colon (procedure) [code = 342035920] Future Scheduled 1963 Sigmoidoscopy [facility]] Medical [facility] Future Scheduled [address] [facility] Test 00:00:00 malignant neoplasm of [facility] Center breast (procedure) [code = 664594414] Future Scheduled [address] [facility] 00:00:00 (combo) [code = CT Medical C enter Colonography (combo)] Future Scheduled [address] [facility] Test 00:00:00 malignant neoplasm of [facility] Center colon (procedure) [code = 855845843] Future Scheduled [address] [facility] Test 00:00:00 malignant neoplasm of [facility] Center colon (procedure) [code = 704737633] Future Scheduled [address] [facility] Test 00:00:00 malignant neoplasm of [facility] colon (procedure) [code = 516909847] Future Scheduled [address] [facility] Test 00:00:00 malignant neoplasm of [facility] Center colon (procedure) [code = 454432293] Future Scheduled 1963 S[facility]oidoscopy [facility]] [facility] Future Scheduled [address] [facility] Test 00:00:00 malignant neoplasm of [facility] Center breast (procedure) [code = 962065038] Future Scheduled [address] [facility] 00:00:00 (combo) [code = CT Medical C enter Colonography (combo)] Future Scheduled [address] [facility] Test 00:00:00 malignant neoplasm of [facility] Center colon (procedure) [code = 917564412] Future Scheduled [address] [facility] Test 00:00:00 malignant neoplasm of [facility] Center colon (procedure) [code = 544140546] Future Scheduled [address] [facility] Test 00:00:00 malignant neoplasm of [facility] Center colon (procedure) [code = 946744414] Future Scheduled [address] [facility] Test 00:00:00 malignant neoplasm of [facility] colon (procedure) [code = 846843565] Future Scheduled 1963 S[facility]oidoscopy [facility]] [facility] Future Scheduled IMM Influenza Seasonal [facility] May to October (>/= 19 yrs) [code = IMM Influenza Seasonal May to October (>/= 19 yrs)] Future Scheduled IMM Influenza Seasonal [facility] May to October (>/= 19 yrs) [code = IMM Influenza Seasonal May to October (>/= 19 yrs)] Future Scheduled IMM Influenza Seasonal [facility] May to October (>/= 19 yrs) [code = IMM Influenza Seasonal May to October (>/= 19 yrs)] [facility] malignant neoplasm of colon (procedure) [code = 651028590] Future Scheduled [facility]orectal [facility] Annual (FIT/FOBT) Age 50 to 75 [code = Colorectal Cancer Scrn Annual (FIT/FOBT) Age 50 to 75] Future Scheduled Breast Cancer [facility] (Yearly) [code = Breast Cancer Scrn (Yearly)] Future [facility]uled [facility] malignant neoplasm of cervix (procedure) [code = 632224719] Future [facility] malignant neoplasm of cervix (procedure) [code = 901728163] Future Scheduled Cervical Cancer Scrn [facility] (3 Yrs) [code = Cervical Cancer Scrn (3 Yrs)] Future Scheduled COVID-19 Vaccine (1) [facility] [code = COVID-19 Vaccine (1)] Encounters Start End Encounter Admission Attending Care Care Encounter Source Date/Time Date/Time Type Type Clinicians Facility Department ID 2023-12-07 2023-12-07 Outpatient R SAURABH CARVAJAL [facility] [id number] [facility] 09:30:00 09:30:00 SAURABH CARVAJAL [facility] 2023-05-11 2023-05-11 Outpatient VINEET POOLE [facility] [id number] SLE 00:00:00 00:00:00 JAE 2023-04-17 2023-04-17 Outpatient VINEET POOLE [facility] [id number] SLE 00:00:00 00:00:00 JAE 2023-03-14 2023-03-14 Outpatient VINEET POOLE [facility] [id number] SLE 11:59:11 11:59:11 JAE 2023-01-16 2023-01-16 Travel 1.2.840.1 1.2.249.963 [id number] Methodi 00:00:00 00:00:[address] 3.430.2.7 0.2.7.3.698 Ho spita .3.296200 084.8 l .8 2023-01-16 2023-01-16 Transcribe Boris 1.2.840.1 [id number] Methodi 00:00:00 00:00:00 Orders Shawna [address]97.1.[address] 3.430.2.7 Hospit a .3.071597 l .8 2023-01-16 2023-01-16 Travel 1.2.840.1 1.2.306.274 [id number] Methodi 00:00:00 00:00:[address] 3.430.2.7 0.2.7.3.698 Ho spita .3.111491 084.8 l .8 2023-01-16 2023-01-16 Transcribe Boris, 1.2.840.1 [id number] Methodi 00:00:00 00:00:00 Orders Shawna 63824.1.[address] 3.430.2.7 Hospit a .3.986668 l .8 2023-01-10 2023-01-10 Outpatient VINEET POOLE [facility] [id number] SLEH 13:49:37 13:49:37 VIPER 2023-01-03 2023-01-03 Outpatient VINEET POOLE [facility] [id number] SLE 00:00:00 00:00:00 JAE 2022-12-19 2022-12-19 Outpatient VINEET POOLE [facility] SLE [id number] SLE 00:00:00 00:00:00 JAE 2022-12-16 2022-12-[address] [facility] [id number] [address] [place] [address] St 00:00:00 00:00:00 Only [facility] 2022-12-14 2022-12-14 Telephone Wei IACARLOS [facility]FF 1.2.840.11 [id number] [facility] 00:00:00 00:00:00 Saurabh ORANTES 350.1.13.10 it y of WOMEN'S 4.2.7.2.686 [facility] [id number] [facility] [address] 2022-12-06 2022-12-06 Outpatient R SAURABH CARVAJAL [facility] B [id number] [facility] 13:00:00 13:52:57 WILLIAM CARVAJALYAL arturo [facility] 2022-12-06 2022-12-06 Office Meedeepak [facility] WINTER 1.2.840.114 [id number] Univers 13:00:00 13:52:57 Visit Saurabh ORANTES 350.1.13.10 it y [place] [id number] [facility] [address] 2022-12-06 2022-12-06 Orders Doctor LUCIANO 1.2.840.114 [id number] Univers 00:00:00 00:00:00 Only Unassigned, JUANCARLOS 350.1.13.10 ity of [place] [facility] 4.2.7.2.686 [place] [id number] [facility] [address] 2022-11-30 2022-11-30 Outpatient [facility] [id number] Univers 10:30:00 10:30:00 WEISAURABH arturo [facility] 2022-11-30 2022-11-30 Outpatient [facility] [id number] Univers 10:30:00 10:30:00 WEISAURABH arturo [facility] 2022-10-04 2022-10-04 Telephone Ethan [facility] [id number] 00:00[facility]00 00:00:00 [facility] 2022-09-13 2022-09-13 Office VINEET Poole [facility] [id number] 13:30:00 13:45:00 Visit Jae Denise [facility] 2022-09-13 2022-09-13 Outpatient ARLYN KIRBY SLE [id number] SLE 11:41:47 11:41:47 JAE 2022-09-02 2022-09-02 Documentat Riley [facility] [id number] 00:00:00 00:00:00 cedric Mehta [facility] 2022-07-18 2022-07-18 Outpatient KEVIN GREGORIO SLE [id number] SLEH 14:13:32 23:59:00 [facility] 2022-07-18 2022-07-18 Hospital Seals, [facility] [id number] 14:00:00 23:59:00 Encounter [facility] 2022-07-18 2022-07-18 Outpatient VINEET PANTOJA [facility] SLE [id number] SLE 14:13:03 13:59:00 [facility] 2022-07-18 2022-07-18 Hospital Seals, [facility] [id number] 12:30:00 13:59:00 Encounter [facility] 2022-07-18 2022-07-18 [facility], [facility] [id number] 10:02:46 12:29:00 Encounter [facility] 2022-07-18 2022-07-18 Outpatient KIT [facility] [id number] SLE 10:02:45 12:29:00 [facility] 2022-07-06 2022-07-06 Documentat Paxton [facility] [id number] 00:00:00 00:00:00 ion [facility] 2022-06-24 2022-06-24 Documentat Kit [facility] [id number] 00:00:00 00:00:00 ion [facility] 2022-06-23 2022-06-23 Documentat Riley [facility] [id number] 00:00:00 00:00:00 ion Qiana E [facility] 2022-06-21 2022-06-21 Office VINEET Rylanelmo [facility] [id number] 15:15:00 15:45:00 [facility] 2022-06-21 2022-06-21 Outpatient VINEET POOLE SLE SLE [id number] SLE 14:20:07 14:20:07 JAE 2022-06-21 2022-06-21 Orders [facility] [id number] 00:00:00 00:00:00 Only [facility] 2022-06-20 2022-06-20 Office Zulema [facility] [id number] 14:45:00 15:15:00 Visit Jae Denise [facility] 2022-06-20 2022-06-20 Outpatient EL ZULEMA [facility] [id number] SLE 00:00:00 00:00:00 JAE 2022-06-16 2022-06-16 Outpatient R SAURABH CARVAJAL [facility] B [id number] Univers 00:00:00 00:00:00 SAURABH CARVAJAL [facility] 2022-06-06 2022-06-06 Outpatient R SAURABH CARVAJAL [facility] B [id number] Univers 00:00:00 00:00:00 SAURABH CARVAJAL [facility] 2022-05-20 2022-05-20 Concepcion Lin [facility] [id number] 00:00:00 00:00:00 Only [facility] 2022-05-20 2022-05-20 Documentat Riley [facility] [id number] 00:00:00 00:00:00 ion [facility] 2022-05-14 2022-05-16 Inpatient ER KEVIN MCDONNELL Emergency [id number] SLE 16:03:00 19:02:00 LEANNE 2022-05-14 2022-05-16 Hospital ER Harley Montesinos [facility] [id number] 16:03:00 19:02:00 Encounter Leanne Mcdonnell [facility] 2022-05-15 2022-05-15 Travel [facility] [id number] [facility] 00:00:00 00:00:00 [facility] 2022-05-14 2022-05-14 Orders [facility] [id number] 00:00:00 00:00:00 Only [facility] 2021-12-08 2021-12-08 Case Wei IACARLOS WINTER 1.2.840.114 [id number] Univers 00:00:00 00:00:00 Management Saurabh ORANTES 350.1.13.10 it[place] [id number] [address] 2021-12-07 2021-12-07 Doll Wigs Hackler 2, Adc Lab [facility] 1.2.840.114 [id number] Univers 11:15:00 11:30:00 Visit Eddie Austin 350.1.13.10 [place] [id number] [address] 2021-12-07 2021-12-07 Outpatient R EDDIE AUSTIN [facility] [id number] Univers 11:15:00 11:15:00 ity [facility] 2021-11-30 2021-11-30 Office Saurabh Carvajal [facility] MAAME 1.2. 840.114 [id number] Univers 09:00:00 10:42:48 Visit Eddie Austin 350.1.13.10 ity of [place] [id number] [address] 2021-11-30 2021-11-30 Outpatient R EDDIE AUSTIN [facility] [id number] Univers 09:00:00 10:42:48 ity of [facility] 2021-11-30 2021-11-30 Outpatient R EDDIE AUSTIN [facility] [id number] Univers 09:00:00 09:00:00 ity [facility] 2021-11-24 2021-11-24 Pre Visit TERESA Cao 1.2.519.422 [id number] Univers 00:00:00 00:00:00 Outreach Maya CORADO 350.1.13.10 i ty [place] [id number] [place] [id number] [place] 2021-08-05 2021-08-05 Outpatient R JC AUSTINN [facility] [id number] Univers 15:30:00 15:30:00 ity of [facility] 2021-08-02 2021-08-02 Pre Visit FANTASMA CaoFrancine 1.2.739.083 [id number] Univers 00:00:00 00:00:00 Outreach Maya CORADO 350.1.13.10 i [place] [id number] [facility] [address] 2021-04-22 2021-04-22 Letter LUCIANO Patel 1.2.840.114 [id number] Univers 00:00:00 00:00:00 (Out) Fannie Woodson JUANCARLOS 350.1.13.10 i ty of HOSPITAL 4.2.7.2.686 [place] as [id number] [facility] [address] 2021-04-21 2021-04-21 Laboratory Only, Ang Db Test [facility] 1.2.8 40.114 [id number] Univers 16:03:49 16:18:49 Only Vielka Britton [facility] 350.1.13.10 ity of [place] 4.2.7.2.686 [place] as Delmar?Blea [id number] [address] Medical Office Building 2021-04-21 2021-04-21 Outpatient R KANNAN [facility] [id number] Univers 15:45:00 15:45:00 VIELKA ity [facility] 2021-04-21 2021-04-21 Letter Doctor WOLF 1.2.840.114 [id number] Univers 00:00:00 00:00:00 (Out) Unassigned, JUANCARLOS 350.1.13.10 ity of [place] [facility] 4.2.7.2.686 [place] as [id number] [address] 2021-04-21 2021-04-21 Letter Doctor LUCIANO Fox.2.840.114 [id number] Univers 00:00:00 00:00:00 (Out) Unassigned, JUANCARLOS 350.1.13.10 ity of [place] [facility] 4.2.7.2.686 [place] as [id number] [address] 2021-04-21 2021-04-21 Orders Doctor LUCIANO Chi2.840.114 [id number] Univers 00:00:00 00:00:00 Only Unassigned, JUANCARLOS 350.1.13.10 ity [facility] 4.2.7.[address] [facility] [id number] [address] 2021 2021-02-27 Inpatient BRENDA DaviesPM [facility].01 [id number] [facility] 15:47:00 11:36:00 Shadi 01 [facility] 2021-02-25 2021-02-25 Outpatient Tulio BRENDACL LABO [id number] [facility] 18:45:00 18:45:00 Jaiden 73 [facility] 2020-12-28 2020-12-28 Outpatient MHIE MHIE [id number] [place] 15:45:00 15:45:00 00 l Wing 2020-12-28 2020-12-28 Outpatient MHIE MHIE [id number] [facility] 15:45:00 15:45:00 00 l Wing 2020-07-02 2020-07-02 Emergency [facility] 1.2.209.911 [id number] 14:38:00 16:16:00 Elier Chris 350.1.13.10 [place] 4.2.7.2.686 [place] [id number] 2020-07-02 2020-07-02 Emergency X [facility] ERT [id number] Univers 14:28:00 14:28:00 ity [facility] 2020-04-29 2020-04-29 Emergency [facility] 1.2.322.422 [id number] 12:18:00 15:08:00 Eddie Chris 350.1.13.10 [place] 4.2.7.2.686 [place] [id number] 2020-04-29 2020-04-29 Emergency X [facility] ERT [id number] Univers 12:07:00 12:07:00 EDDIE itdori of [facility] 2020-03-17 2020-03-17 [facility] 1.2.438.882 [id number] 11:37:56 13:51:00 Elier Chris 350.1.13.10 [place] 4.2.7.2.686 [place] [id number] 084 2020-03-17 2020-03-17 Emergency X [facility] ERT [id number] Univers 11:26:00 11:26:00 [facility] 2020-03-17 2020-03-17 Orders Doctor LUCIANO 1.2.840.114 [id number] 00:00:00 00:00:00 Only Unassigned, JUANCARLOS 350.1.13.10 [place] [address].2.7.2.686 [id number] 009 2019-05-29 2019-05-29 Emergency X PADILLA, [facility] ERT [id number] Univers 06:47:32 09:46:00 MATEUS [facility] 2018-12-10 2018-12-10 Office nullFlavo Family [id number] [facility] 21:03:58 22:56:31 Visit r Practice l Katharine Andrews Same Day 2018-12-10 2018-12-10 Emergency nullFlavo Emergency [id number] Memoria 16:20:39 17:56:00 r Center l (6520) DEBBIEJ Alice 2018-12-10 2018-12-10 Outpatient [facility] [id number] [place] 16:03:58 16:03:58 Health 2018-12-10 2018-12-10 Emergency [facility] [id number] [place] 11:20:39 11:20:39 [facility] 2017-09-01 2017-09-01 Emergency [facility] [id number] [place] 10:29:00 10:29:00 [facility] 2015-02-04 2015-02-05 Outpt Diag nullFlavo [facility] [id number] Memoria 13:00:00 04:59:00 Services r Outpatient 00 l Imaging Nghia Morin 2015-02-04 2015-02-05 Outpt Diag nullFlavo [facility] [id number] Memoria 13:00:00 04:59:00 Services r Outpatient 00 l Imaging Nghia Morin 2015-02-04 2015-02-04 Outpatient Ashish, 2.16.840. 2.16.840.1. [id number] 08:00:00 23:59:00 Julian Zheng 1.455839. [id number] 00 3.615.0.1 5.0.312 51 0004-05-11 2015-01-06 [facility] [id number] Mem[place] 15:04:00 04:59:00 r Wing 31 [facility] 2015-01-05 2015-01-06 [facility] [id number] Memoria 15:04:00 04:59:00 r Wing 31 [facility] 2015-01-05 2015-01-05 Outpatient Silvano-Fu 2.16.840. 2.16.840. 1. [id number] 10:04:00 23:59:00 entes, 1.195096. 068129.3.61 31 Julita M 3.615.0.1 5.0.305 48 8612-09-23 2014-05-20 [id number] 11:14:00 19:30:00 Outpatient r Wing 00 [facility] 2014-05-20 2014-05-20 Bedded [facility] [id number] Memoria 11:14:00 19:30:00 Outpatient r Wing 00 [facility] 2014-05-20 2014-05-20 Outpatient Francis, 2.16.840. 2.16.840.1. [id number] 06:14:00 14:30:00 Larry A 1.183938. [id number] 00 3.615.0.1 5.0.257 33 5833-05-05 2014-01-03 Inpatient [facility] [id number] Memoria 07:50:00 03:00:[address] 2013-12-30 2014-01-03 Inpatient [facility] [id number] Memoria 07:50:00 03:00:[address] 2013-12-30 2014-01-02 Outpatient Terminella, 2.16.840. 2.16.840. 1. [id number] 02:50:00 22:00:00 Rivera 1.413459. [id number] 25 3.615.0.1 5.0.101 01 Results Test Description Test Time Test Comments Results Result Comments Source BASIC METABOLIC PANEL 2023-03-14 13:07:14 Test Item Value Reference Range Interpretation Comme nts SODIUM (BEAKER) (test 139 meq/L 136-145 code = 381) POTASSIUM (BEAKER) 4.6 meq/L 3.5-5.1 Specimen moderately hemolyzed (test code = 379) CHLORIDE (BEAKER) (test 103 meq/L 98-107 code = 382) CO2 (BEAKER) (test code 32 meq/L 22-29 H = 355) BLOOD UREA NITROGEN 7 mg/dL 7-21 (BEAKER) (test code = 354) CREATININE (BEAKER) 0.75 mg/dL 0.57-1.25 Specimen moderately hemolyzed (test code = 358) GLUCOSE RANDOM (BEAKER) 79 mg/dL 70-105 (test code = 652) CALCIUM (BEAKER) (test 9.3 mg/dL 8.4-10.2 code = 697) EGFR (BEAKER) (test 91 mL/min/1.73 sq In terpretation of eGFR values [...] s not applicable for dialysis estefanía santos Adult Caregiver ID - MMLIPID [id number] 13:07:14 Test Item Value Reference Range Interpretation Comments TRIGLYCERIDES (BEAKER) 385 mg/dL Speci men moderately (test code = 540) hemolyzed CHOLESTEROL (BEAKER) 166 mg/dL Specime n moderately (test code = 631) hemolyzed HDL CHOLESTEROL (BEAKER) 28 mg/dL (test code = 976) LDL CHOLESTEROL 61 mg/dL CALCULATED (BEAKER) (test code = 633) Triglyceride Reference Range: Low Risk <150 Borderline 150-199 High Risk 200- 499 Very High Risk >=500Cholesterol Reference Range: Low Risk <200 Borderline 200-239 High Risk >240HDL Cholesterol Reference Range: Low Risk >=60 High Risk <40LDL Cholesterol Reference Range: Optimal <100 Near Optimal 100-129 Borderline 130-159 High 160-189 Very High >=190 Adult Caregiver ID - MMCBC W/PLT COUNT & AUTO [id number] 12:48:07 Test Item Value Reference Range Interpretation Comments WHITE BLOOD CELL COUNT (BEAKER) 5.4 K/ L 3.5-10.5 (test code = 775) RED BLOOD CELL COUNT (BEAKER) 4.07 M/ L 3.93-5.22 (test code = 761) HEMOGLOBIN (BEAKER) (test code = 12.8 GM/DL 11.2-15.7 410) HEMATOCRIT (BEAKER) (test code = 37.6 % 34.1-44.9 411) MEAN CORPUSCULAR VOLUME (BEAKER) 92 fL 79-95 (test code = 753) MEAN CORPUSCULAR HEMOGLOBIN 31.4 pg 25.6-32.2 (BEAKER) (test code = 751) MEAN CORPUSCULAR HEMOGLOBIN CONC 34.0 GM/DL 32.2-35.5 (BEAKER) (test code = 752) RED CELL DISTRIBUTION WIDTH 11.8 % 11.7-14.4 (BEAKER) (test code = 412) PLATELET COUNT (BEAKER) (test 148 K/CU MM 150-450 L code = 756) MEAN PLATELET VOLUME (BEAKER) 10.9 fL 9.4-12.3 (test code = 754) NUCLEATED RED BLOOD CELLS 0 /100 WBC 0-0 (BEAKER) (test code = 413) NEUTROPHILS RELATIVE PERCENT 42 % (BEAKER) (test code = 429) LYMPHOCYTES RELATIVE PERCENT 50 % (BEAKER) (test code = 430) MONOCYTES RELATIVE PERCENT 7 % (BEAKER) (test code = 431) EOSINOPHILS RELATIVE PERCENT 1 % (BEAKER) (test code = 432) BASOPHILS RELATIVE PERCENT 0 % (BEAKER) (test code = 437) NEUTROPHILS ABSOLUTE COUNT 2.26 K/ L 1.56-6.13 (BEAKER) (test code = 670) LYMPHOCYTES ABSOLUTE COUNT 2.70 K/ L 1.18-3.74 (BEAKER) (test code = 414) MONOCYTES ABSOLUTE COUNT (BEAKER) 0.36 K/ L 0.24-0.36 (test code = 415) EOSINOPHILS ABSOLUTE COUNT 0.07 K/ L 0.04-0.36 (BEAKER) (test code = 416) BASOPHILS ABSOLUTE COUNT (BEAKER) 0.01 K/ L 0.01-0.08 (test code = 417) IMMATURE GRANULOCYTES-RELATIVE 0.00 % 0.00-1.00 PERCENT (BEAKER) (test code = 2801) BASIC METABOLIC [id number] 14:39:36 Test Item Value Reference Range Interpretation Comments SODIUM (BEAKER) 139 meq/L 136-145 (test code = 381) POTASSIUM 4.7 meq/L 3.5-5.1 (BEAKER) (test code = 379) CHLORIDE (BEAKER) 103 meq/L 98-107 (test code = 382) CO2 (BEAKER) 28 meq/L 22-29 (test code = 355) BLOOD UREA 10 mg/dL 7-21 NITROGEN (BEAKER) (test code = 354) CREATININE 0.85 mg/dL 0.57-1.25 (BEAKER) (test code = 358) GLUCOSE RANDOM 97 mg/dL 70-105 (BEAKER) (test code = 652) CALCIUM (BEAKER) 9.2 mg/dL 8.4-10.2 (test code = 697) EGFR (BEAKER) 79 Interpretatio n of eGFR (test code = mL/min/1.73 values Stage De scription 1092) sq m Result G1 Sharron l or high >=90 G2 Mildly decreased 60-89 G3a Mildl y to moderately 45-5 9 G3b Moderately to s everely 30-44 G4 Severl y decreased 15-29 G5 Kidney failure <15Reported eGF R is based on the CKD-EPI 2021 equation that d oes not use a race coefficientEsti mated GFR is not as accur ate as Creatinine Katherine adan in predicting glom erular filtration rate . Estimated GFR is not appl icable for dialysis patien ts Adult Caregiver ID - FSECBC W/PLT COUNT & AUTO [id number] 14:24:12 Test Item Value Reference Range Interpretation [...] (BEAKER) (test code = 2801) COMPREHENSIVE METABOLIC [id number] 12:53:08 Test Item Value Reference Range Interpretation [...] (test code = 347) EGFR (BEAKER) 98 Interpretati on of eGFR (test code = 1092) mL/min/1.[address] age Description sq m Result G1 Sharron l or high >=90 G2 Mildly decreased 60-89 G3a Mildl y to moderately 45-5 9 G3b Moderately to s everely 30-44 G4 Severl y decreased 15-29 G5 Kidney failure <15Reported eGF R is based on the CKD-EPI 2021 equation that d oes not use a race coefficientEsti mated GFR is not as accur ate as Creatinine Katherine adan in predicting glom erular filtration rate . Estimated GFR is not appl icable for dialysis patien ts Adult Caregiver ID - MARCOCBC W/PLT COUNT & AUTO [id number] 12:38:19 Test Item Value Reference Range Interpretation [...] = 2801) CT, HEART CORONARY YESY, WO [id number] 10:02:00shakila [facility] ppo-oon for dr obertonUnlisted Reason for Exam - Click Yes and Enter Reason Below->No [facility] : 1965 Sex: FAddendum BeginsREPORT STATUS:A I concur with the nonvascular findings. Signed: Tim Seay MDReport Verified Date/Time: 07/29/2022 10:02:26 Reading Location: [facility] Radiology ReadingRoomAddendum EndsFINAL REPORT CT scan for Coronary Calcium scoring, 18-Jul-22 INDICATION: This is a 57 -year old female with increased cardiac risk presents for calcium scoring TECHNIQUE: Spiral acquisition without contrast administration using a Siemens CT scan. Calcium score is analysed using the [employer] software. This exam was performed according to [...] performed. Coronary calcification was analyzed using the [employer] system software. These are the results of [...] anterior descending of the left circumflex arteries inthe normal fashion. The right coronary artery arises from the right sinus of Valsalva. NON-VASCULAR:The thyroid gland appears unremarkable. The chest wall and mediastinum appears unremarkable. No signi ficant adenopathy is seen in the mediastinum. In the lung windows, no endobronchial lesion is seen. No pleural effusion is identified. Scarring is identified right upper lobe near the apex. Overall, nosuspicious pulmonary nodule is identified. Limited images of the upper abdomen reveals no acute abnor malities. No acute bony pathology is seen. Surgical hardware is identified anterior aspect of the upper vertebral bodies. CONCLUSION: 1. Quantitative coronary artery calcium Agatston score of 286. The calcium score places patient greater than 95th percentile for her age group, using the DEAL database.There is moderate calcification identified in the proximal mid LAD, with mild calcification seen in proximal LCx, and mild calcification identified in the proximal/mid RCA. 2. Normal coronary artery origins. 3. No acute pulmonary pathology. No pulmonary nodule is seen. 4. Normal thoracic aortic calibre. Scattered calcification is seen. 5. Other findings as described above. 6. An addendum will be dictated by the Hardening Machine Operator Helper Radiologist regarding the nonvascular findings. THE REPORT WILL ONLY BE CONSIDERED COMPLETE AFTER THE ADDENDUM HAS BEEN DICTATED. Signed: Jean-Pierre Yarbrough MDReport Verified Date/Ti me: 07/23/2022 08:08:03 2D Echo W/Doppler(CW/PW/Color)2022-07-18 18:01:25Ejection [facility]ractionSLEH [facility] W[facility]Doppler(CW/PW/Color)2022-07-18 18:01:25Ejection FractionSLEH ECHO [facility]ARTLAB [facility] W/Doppler(CW/PW/Color) 2022-07-18 18:01:25Ejection FractionSLEH ECHO [facility]ARTLAB [facility] W/Doppler(CW/PW/Color)2022-07-18 18:01:25Ejection FractionSLEH ECHO [facility]ARTLAB [facility] W/Doppler(CW/PW/Color)2022-07-18 18:01:25Ejection FractionSLEH ECHO [facility] W/Doppler(CW/PW/Color) 2022-07-18 18:01:25Ejection FractionSLE ECHO [facility] Center[facility]PREHENSIVE METABOLIC [id number] 15:38:11 Test Item Value Reference Range Interpretation [...] St age Description sq m Result G1 Shraron l or high >=90 G2 Mildly decreased [...] not appl icable for dialysis patien ts Adult Caregiver ID - BSCBC W/PLT COUNT & AUTO [id number] 15:15:49 Test Item Value Reference Range Interpretation [...] code = 2801) [facility], MULTI, PHARM, [id number] 16:45:00Unlisted Reason for Exam - Click Yes and Enter Reason Below->No [facility] : 1965 Sex: FFINAL REPORT PROCEDURE: Rest/Stress MYOCARDIAL PERFUSION SPECT with regadenoson\\XA9\\ CPT CODE: 53586 INDICATION: Chest pain R07.9 HISTORY: Cardiac risk factors: Hypertension, hyperlipidemia, tobacco. Other cardiovascular history: No reported CAD. PROTOCOL: 10.8 mCi of Tc-99m sestamibi was injected iv at rest, and SPECT (tomographic) images were obtained. Also, 31.6 mCi of Tc- 99m sestamibi was injected iv at expected peak [...] at tracer injection. BP was 162/93 mmHg atrest and 133/83 mmHg at tracer injection. Stress was stopped for predetermined endpoint. The patientexperienced dyspnea, flushing, and abdominal discomfort; treatment was [...] Signed: Ranjan Almaraz MDReport Verified Date/Time: 05/16/2022 1 6:45:53 [id number] 15:17:06 Test Item Value Reference Range Interpretation Comments PARTIAL THROMBOPLASTIN TIME 62.6 seconds 22.5-36.0 H (BEAKER) (test code = 760) [id number] 04:51:58 Test Item Value Reference Range Interpretation Comments MAGNESIUM (BEAKER) (test code = 1.8 mg/dL 1.6-2.6 627) Adult Caregiver ID - PIAYA LBASIC METABOLIC [id number] 04:51:57 Test Item Value Reference Range Interpretation [...] not appl icable for dialysis patien ts Adult Caregiver ID - GWEN [id number] 04:32:03 Test Item Value Reference Range Interpretation [...] WBC 0-0 (BEAKER) (test code = 413) [id number] 16:30:12 Test Item Value Reference Range Interpretation Comments PARTIAL THROMBOPLASTIN TIME 37.5 seconds 22.5-36.0 H (BEAKER) (test code = 760) [id number] 06:58:36 Test Item Value Reference Range Interpretation [...] (test code = 413) HIGH SENSITIVITY TROPONIN [id number] 02:22:02 Test Item Value Reference Range Interpretation Comments HIGH SENSITIVITY 182 pg/ml See_Comment H [Automated message] TROPONIN I (test code The sy stem which = 1736859) generated this result transmitted ref erence range: <=17. Th e reference range was not used to int erpret this result as normal/abnormal . Adult Caregiver ID - PIAYA LThe LYMPHEDEMA THERAPIST STAT High Sensitivity Troponin-I results should be used in conjunction with other diagnostic information such as ECG, clinical observations and information, and patient symptoms to aid in the diagnosis of GA.SARS-CoV2/RT-PCR (Asymptomatic ONLY)2022-05-15 01:13:52 Test Item Value Reference Interpretation Comments Range SARS-COV2/RT-PCR Negative Negative The SARS-Co V-2 (test code = target nucleic 20380-8) acids are not detected in thi s [...] revoked sooner. Fact Sheet for Healthcare Providers: https://www.[employer]/Documents/Xp ert%20Xpress%20SAR S%20CoV-2/Fact%20S heets/302-3802%20S ARS-COV-2%20HEALTH CARE%20PROVIDERS%2 0FACT%20SHEET.pdf Fact Sheet for Healthcare Patients: https://www.[employer]/Documents/Xp ert%20Xpress%20SAR S%20CoV-2/Fact%20S heets/302-3801%20S ARS-COV-2%20PATIEN T%20FACT%20SHEET.p df Lab Interpretation Normal (test code = 03516-3) [facility]2022-05-15 01:13:52 Test Item Value Reference Interpretation Comments Range SARS-COV2/RT-PCR Negative Negative The SARS-Co V-2 (test code = target nucleic 95939-1) acids are not detected in thi s [...] revoked sooner. Fact Sheet for Healthcare Providers: https://www.[employer]/Documents/Xp ert%20Xpress%20SAR S%20CoV-2/Fact%20S heets/302-3802%20S ARS-COV-2%20HEALTH CARE%20PROVIDERS%2 0FACT%20SHEET.pdf Fact Sheet for Healthcare Patients: https://www.[employer]/Documents/Xp ert%20Xpress%20SAR S%20CoV-2/Fact%20S heets/302-3801%20S ARS-COV-2%20PATIEN T%20FACT%20SHEET.p df Lab Interpretation Normal (test code = 66353-7) [facility]2022-05-15 01:13:52 Test Item Value Reference Interpretation Comments Range SARS-COV2/RT-PCR Negative Negative The SARS-Co V-2 (test code = target nucleic 02475-3) acids are not detected in thi s [...] revoked sooner. Fact Sheet for Healthcare Providers: https://www.[employer]/Documents/Xp ert%20Xpress%20SAR S%20CoV-2/Fact%20S heets/302-3802%20S ARS-COV-2%20HEALTH CARE%20PROVIDERS%2 0FACT%20SHEET.pdf Fact Sheet for Healthcare Patients: https://www.[employer]/Documents/Xp ert%20Xpress%20SAR S%20CoV-2/Fact%20S heets/302-3801%20S ARS-COV-2%20PATIEN T%20FACT%20SHEET.p df Lab Interpretation Normal (test code = 52689-8) [facility]2022-05-15 01:13:52 Test Item Value Reference Interpretation Comments Range SARS-COV2/RT-PCR Negative Negative The SARS-Co V-2 (test code = target nucleic 55734-8) acids are not detected in thi s [...] revoked sooner. Fact Sheet for Healthcare Providers: https://www.[employer]/Documents/Xp ert%20Xpress%20SAR S%20CoV-2/Fact%20S heets/3023802%20S ARS-COV-2%20HEALTH CARE%20PROVIDERS%2 0FACT%20SHEET.pdf Fact Sheet for Healthcare Patients: https://www.[employer]/Documents/Xp ert%20Xpress%20SAR S%20CoV-2/Fact%20S heets/302-3801%20S ARS-COV-2%20PATIEN T%20FACT%20SHEET.p df Lab Interpretation Normal (test code = 75118-3) [facility]2022-05-15 01:13:52 Test Item Value Reference Interpretation Comments Range SARS-COV2/RT-PCR Negative Negative The SARS-Co V-2 (test code = target nucleic 06893-3) acids are not detected in thi s [...] revoked sooner. Fact Sheet for Healthcare Providers: https://www.[employer]/Documents/Xp ert%20Xpress%20SAR S%20CoV-2/Fact%20S heets/302-3802%20S ARS-COV-2%20HEALTH CARE%20PROVIDERS%2 0FACT%20SHEET.pdf Fact Sheet for Healthcare Patients: https://www.[employer]/Documents/Xp ert%20Xpress%20SAR S%20CoV-2/Fact%20S heets/302-3801%20S ARS-COV-2%20PATIEN T%20FACT%20SHEET.p df Lab Interpretation Normal (test code = 89057-9) [facility]2022-05-15 01:13:52 Test Item Value Reference Interpretation Comments Range SARS-COV2/RT-PCR Negative Negative The SARS-Co V-2 (test code = target nucleic 24133-5) acids are not detected in thi s [...] revoked sooner. Fact Sheet for Healthcare Providers: https://www.[employer]/Documents/Xp ert%20Xpress%20SAR S%20CoV-2/Fact%20S heets/302-3802%20S ARS-COV-2%20HEALTH CARE%20PROVIDERS%2 0FACT%20SHEET.pdf Fact Sheet for Healthcare Patients: https://www.[employer]/Documents/Xp ert%20Xpress%20SAR S%20CoV-2/Fact%20S heets/302-3801%20S ARS-COV-2%20PATIEN T%20FACT%20SHEET.p df Lab Interpretation Normal (test code = 54936-0) [facility])2022-05-15 01:13:52 Test Item Value Reference Range Interpretation Comments SARS-COV2/RT-PCR Negative Negative The SARS-Co V-2 target (test code = nucleic acids a re not 5022666) detected in thi s specimen. Negative result [...] revoked sooner. Fact Sheet for Healthcare Providers: https://www.[employer] - [employer] m/Documents/Xpert%20Xpress%20SARS%20CoV-2/Fact%20Sheets/497-5912%74PPZM-PNZ-9%20 HEALTHCARE%20PROVIDERS%20FACT%20SHEET.pdf Fact Sheet for Healthcare Patients: https://www.[employer]/Documents/Xpert%20Xp ress%20SARS%20CoV-2/Fact%20Sheets/302-2811%82OEZA-QAM-2%20PATIENT%20FACT%20SHEET .pdfHIGH SENSITIVITY TROPONIN [id number] 23:36:40 Test Item Value Reference Range Interpretation Comments HIGH SENSITIVITY 148 pg/ml See_Comment H [Automated message] TROPONIN I (test code The sy stem which = 3289845) generated this result transmitted ref erence range: <=17. Th e reference range was not used to int erpret this result as normal/abnormal . Adult Caregiver ID - PIAYA LThe LYMPHEDEMA THERAPIST STAT High Sensitivity Troponin-I results should be used in conjunction with other diagnostic information such as ECG, clinical observations and information, and patient symptoms to aid in the diagnosis of GA.[id number] 23:35:01 Test Item Value Reference Range Interpretation Comments PARTIAL THROMBOPLASTIN TIME 36.2 seconds 22.5-36.0 H (BEAKER) (test code = 760) [id number] 23:33:40 Test Item Value Reference Range Interpretation Comments PARTIAL THROMBOPLASTIN TIME 35.9 seconds 22.5-36.0 (BEAKER) (test code = 760) LIPID [id number] 23:31:17 Test Item Value Reference Range Interpretation [...] Borderline 130-159 High 160-189 Very High >=190 Adult Caregiver ID - DANUTA MPLATELET [id number] 23:02:35 Test Item Value Reference Range Interpretation Comments PLATELET COUNT (BEAKER) (test 166 K/CU MM 150-450 code = 756) Adult Caregiver ID - [id number] SENSITIVITY TROPONIN [id number] 19:17:02 Test Item Value Reference Range Interpretation Comments HIGH SENSITIVITY 57 pg/ml See_Comment H [Automated message] TROPONIN I (test code = The system which [id number]) generated this result transmitted ref erence range: <=17. Th e reference range was not used to int erpret this result as normal/abnormal . Adult Caregiver ID - DANUTA MThe LYMPHEDEMA THERAPIST STAT High Sensitivity Troponin-I results should be used in conjunction with other diagnostic information such as ECG, clinical observations and information, and patient symptoms to aid in the diagnosis of GA.HIGH SENSITIVITY TROPONIN [id number] 17:36:27 Test Item Value Reference Range Interpretation Comments HIGH SENSITIVITY 22 pg/ml See_Comment H [Automated message] TROPONIN I (test code = The system which 2651730) generated this result transmitted ref erence range: <=17. Th e reference range was not used to int erpret this result as normal/abnormal . Adult Caregiver ID - DANUTA MThe LYMPHEDEMA THERAPIST STAT High Sensitivity Troponin-I results should be used in conjunction with other diagnostic information such as ECG, clinical observations and information, and patient symptoms to aid in the diagnosis of GA.COMPREHENSIVE METABOLIC [id number] 17:29:31 Test Item Value Reference Range Interpretation [...] eGF R is based on the CKD-EPI 202 equation that d oes not use a race coefficientEsti mated GFR is not as accur ate as Creatinine Katherine antionette in predicting glom erular filtration rate . Estimated GFR is not appl icable for dialysis patien ts Adult Caregiver ID - DANUTA MCBC W/PLT COUNT & AUTO [id number] 17:18:57 Test Item Value Reference Range Interpretation [...] (test code = 2801) RAD, CHEST, 2 [id number] 16:44:00Reason for exam:->r/o ACS [facility] 1965 Sex: FFINAL REPORT INDICATION: r/o ACS COMPARISON: None TECHNIQUE: AP and lateral view of the chest. FINDINGS: Lungs and pleura: Clear lungs. No effusion.Heart and mediastinum: Normal heartsize. Unremarkable mediastinal contours.Osseous structures: No acute abnormality.Other: None. IMPRESSION: No acute intrathoracic abnormality. Signed: Alyssia Nelson MDReport Verified Date/Time: 05/14/2022 16:44:29 COMPREHENSIVE METABOLIC [id number] 05:15:00 Test Item Value Reference Range Interpretation [...] TOTAL (test code = ALKP) GLUCOSE BEDSIDE [id number] 19:48:00 Test Item Value Reference Range Interpretation Comments GLUCOSE BEDSIDE TESTING (test code = 98 mg/dL 70-110 N GLUBED) - XR SMALL [id number] 19:38:00 [facility] 1965 Sex: F Name: RO MAYNARD : 1965 Age/S: 56 / F [id number] Unit #: [id number] Loc: [place] [address] Phys: Dawson Ramírez MD Acct: [id number] Dis Date: Status: ADM IN PHONE #: [phone] Exam Date: 2021 1900 FAX #: Reason: evaluate for Crohn's EXAMS: CPT: [id number] XR SMALL BOWEL 00525 Fluoro Time: 0 DAP (Gy m2): Air Kerma (mGy): Location of dictation: H 14 Small bowel follow-through: HISTORY: Right upper quadrant pain, evaluate for Crohn's disease. COMMENT: The pulper operator radiograph shows normal bowel gas pattern. [...] PAGE 1 Signed Report Name: RO MAYNARD : 1965Age/S: 56 / F [address] Unit #: [id number] Loc: [place] [address] Phys: Dawson Ramírez MD Acct: [id number] Dis Date: Status: ADM IN PHONE #: [phone] Exam Date: 2021 1900 FAX #: Reason: evaluate for Crohn's EXAMS: CPT: [id number] XR SMALL BOWEL 37566 Fluoro Time: 0 DAP (Gy m2): Air Kerma (mGy): (Continued) Technologist: Zainab Moran, RT(R)(CT)(MRI) Trnscb Date/Time: 2021 (1937) Edinson.PXC Orig Print D/T: S: 2021 (1941) PAGE 2 Signed ReportGLUCOSE BEDSIDE [id number] 17:05:00 Test Item Value Reference Range Interpretation Comments GLUCOSE BEDSIDE TESTING (test code 148 mg/dL 70-110 H = GLUBED) - HEPA IMAG INCL GB W [id number] 16:10:00 [facility] 1965 Sex: F FAX: Jaiden Huff MD [phone] Camps: PM St: ADM FAX: Shawna Scott MD [phone] FAX: Dawson Hodge MD [phone] Name: RO MAYNARD [facility] : 1965 Age/S: 56/F [address] Unit #: [id number] Loc: [address] [place] [address] Phys: Dawson Ramírez MD Acct: [id number] Dis Date: Status: ADM IN PHONE #: [phone] Exam Date: 2021 1553 FAX #: Reason: RUQ pain EXAMS: CPT: [id number] HEPA IMAG INCL GB W PHA 14855 EXAMINATION: Nuclear medicine hepatobiliary scan with ejection [...] (1610) :Edinson.PE1 Orig Print D/T: S: 2021 (4461) PAGE 1 Signed ReportGLUCOSE BEDSIDE [id number] 11:56:00 Test Item Value Reference Range Interpretation Comments GLUCOSE BEDSIDE TESTING (test code 131 mg/dL 70-110 H = GLUBED) CBC W/AUTO [id number] 06:20:00 Test Item Value Reference Range Interpretation [...] NT WITH AUTO DIFFERENTI AL. COMPREHENSIVE METABOLIC [id number] 04:48:00 Test Item Value Reference Range Interpretation [...] 45-117 N TOTAL (test code = ALKP) [id number] 04:48:00 Test Item Value Reference Range Interpretation Comments PHOSPHOROUS (test code = PHOS) 3.8 MG/DL 2.5-4.9 N [id number] 04:48:00 Test Item Value Reference Range Interpretation Comments MAGNESIUM (test code = MAG) 2.1 MG/DL 1.8-2.4 N COMPREHENSIVE METABOLIC [id number] 04:46:00 Test Item Value Reference Range Interpretation [...] TOTAL (test Unit/L 45-117 code = ALKP) [id number] 04:46:00 Test Item Value Reference Range Interpretation Comments PHOSPHOROUS (test code = PHOS) MG/DL 2.5-4.9 [id number] 04:46:00 Test Item Value Reference Range Interpretation Comments MAGNESIUM (test code = MAG) MG/DL 1.8-2.4 [id number] 04:46:00 Test Item Value Reference Range Interpretation [...] may dexter yby method. Completed by Nursing: [id number] 04:46:00 Test Item Value Reference Range Interpretation Comments ALCOHOL (test code = ALC) < 3 MG/DL 0-10 N Completed by Nursing: NOCBC W/AUTO [id number] 04:36:00 Test Item Value Reference Range Interpretation [...] # (test code = K/mm3 0.0-0.1 N [facility]#) MANUAL DIFF REQUIRED (test code = DIFF/SCN CRITERIA MDIFF) DRUGS OF ABUSE SCREEN [id number] 21:43:00 Test Item Value Reference Range Interpretation [...] [Automate d code = OPIATURN) SCcutoff message] [facility] system which generated this result transmit ulysses [...] this result as normal/abnormal . 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 Right upper quadrant pain [...] 02/25/2021 (1904) :Edinson.EFM1 Orig Print D/T: S: 02/25/2021 (1907) PAGE 1 Signed Report COVID 19 INHOUSE [id number] 16:22:00 Test Item Value Reference Range Interpretation Comments COVID 19 INHOUSE AG NEGATIVE Negative Per manu facturer, (test code = negative result s should [id number]) be treated aspr esumptive and, if inconsi [...] symptoms co nsistent with COVID-19. CBC W/AUTO [id number] 15:38:00 Test Item Value Reference Range Interpretation [...] WITH AUTO DIFFERENTIAL.NO PLT CLUMPS OBSERVED RBC [id number] 15:38:00 Test Item Value Reference Range Interpretation Comments PLATELET ESTIMATE (test ADEQUATE THOUSAND ADEQUATE code = PLTEST) PLATELET MORPHOLOGY (test NORMAL code = PLTMORPH) CBC W/AUTO [id number] 15:33:00 Test Item Value Reference Range Interpretation [...] code DIFF/SCN CRITERIA = MDIFF) CBC W/AUTO [id number] 15:33:00 Test Item Value Reference Range Interpretation [...] code DIFF/SCN CRITERIA = MDIFF) BASIC METABOLIC [id number] 14:26:00 Test Item Value Reference Range Interpretation [...] CA) 8.7 MG/DL 8.5-10.1 N HEPATIC FUNCTION [id number] 14:26:00 Test Item Value Reference Range Interpretation [...] 93 Unit/L 45-117 N code = ALKP) [id number] 14:26:00 Test Item Value Reference Range Interpretation Comments LIPASE (test code = LIP) 95 Unit/L 114-286 L UA RFLX MICR CULT IF [id number] 14:10:00 Test Item Value Reference Range Interpretation [...] = UACULT) Indication for culture: RiskForSepsis-no [facility] W/AUTO [id number] 14:04:00 Test Item Value Reference Range Interpretation [...] (test code = DIFF/SCN CRITERIA MDIFF) CHEM [id number] 14:26:00 Test Item Value Reference Range Interpretation Comments BUN (test code = BUN) 8 - [facility]2014-09-22 14:26:00 Test Item Value Reference Range Interpretation Comments Glucose Lvl (test code = Glucose Lvl) 91 70-99 [facility] [id number] 14:26:00 Test Item Value Reference Range Interpretation Comments CO2 (test code = CO2) 29 24-32 [facility]2014-09-22 14:26:00 Test Item Value Reference Range Interpretation Comments AGAP (test code = AGAP) 6.7 10.0-20.0 [facility]2014-09-22 14:26:00 Test Item Value Reference Range Interpretation Comments eGFR (test code = eGFR) 86 [facility]2014-09-22 14:26:00 Test Item Value Reference Range Interpretation Comments Creatinine Lvl (test code = Creatinine 0.8 0.5-1.4 Lvl) [facility]2014-09-22 14:26:00 Test Item Value Reference Range Interpretation Comments Chloride Lvl (test code = Chloride Lvl) 104 95-109 [facility] [id number] 14:26:00 Test Item Value Reference Range Interpretation Comments Potassium Lvl (test code = Potassium 3.7 3.5-5.1 Lvl) [facility] [id number] 14:26:00 Test Item Value Reference Range Interpretation Comments Sodium Lvl (test code = Sodium Lvl) 136 135-145 [facility]2014-09-22 14:26:00 Test Item Value Reference Range Interpretation Comments Calcium Lvl (test code = Calcium Lvl) 9.7 8.5-10.5 [facility] ClubJpgteyaQPLSEOZQOL4855-48-52 14:26:00 Test Item Value Reference Range Interpretation Comments MCV (test code = MCV) 101.6 80.0-98.0 [facility] ClubNvljcklGRJCYMBCVW3327-72-94 14:26:00 Test Item Value Reference Range Interpretation Comments MCH (test code = MCH) 35.5 pg 27.0-31.0 [facility] ClubUjjnmtlCZFOGWBRDU9506-66-83 14:26:00 Test Item Value Reference Range Interpretation Comments Hgb (test code = Hgb) 13.3 12.0-16.0 [facility] ClubOdytmzaZGPOQUYFLZ6581-29-47 14:26:00 Test Item Value Reference Range Interpretation Comments Hct (test code = Hct) 37.9 36.0-48.0 [facility] ClubDbbfyqsCXUZGXBPIB6123-07-46 14:26:00 Test Item Value Reference Range Interpretation Comments RBC (test code = RBC) 3.73 4.20-5.40 [facility] ClubSretyjrNJELLHKPLM0618-84-53 14:26:00 Test Item Value Reference Range Interpretation Comments WBC (test code = WBC) 6.1 3.7-10.4 [facility] ClubUesojndCRJKREOWAE2223-90-53 14:26:00 Test Item Value Reference Range Interpretation Comments MPV (test code = MPV) 8.0 7.4-10.4 [facility] ClubIybpwujEDIHADWQBQ8591-78-30 14:26:00 Test Item Value Reference Range Interpretation Comments RDW (test code = RDW) 17.2 11.5-14.5 [facility] ClubVvgstkgGWBLPMHLJZ8484-00-95 14:26:00 Test Item Value Reference Range Interpretation Comments Platelet (test code = Platelet) 223 133-450 [facility] ClubYsoufqwRNUIUYOMFM6609-88-92 14:26:00 Test Item Value Reference Range Interpretation Comments MCHC (test code = MCHC) 35.0 32.0-36.0 [facility] ClubYqgkswgJQKKKHZDOS0135-35-80 14:26:00 Test Item Value Reference Range Interpretation Comments INR (test code = INR) 0.93 0.85-1.17 [facility] ClubQohoqvnSMERHPXFNY7484-17-26 14:26:00 Test Item Value Reference Range Interpretation Comments PT (test code = PT) 12.4 s 12.0-14.7 [facility]2014-09-22 14:26:00 Test Item Value Reference Range Interpretation Comments BUN (test code = BUN) 8 7- [facility]2014-09-22 14:26:00 Test Item Value Reference Range Interpretation Comments Glucose Lvl (test code = Glucose Lvl) 91 70-99 [facility]2014-09-22 14:26:00 Test Item Value Reference Range Interpretation Comments CO2 (test code = CO2) 29 24-32 [facility]2014-09-22 14:26:00 Test Item Value Reference Range Interpretation Comments AGAP (test code = AGAP) 6.7 10.0-20.0 [facility]2014-09-22 14:26:00 Test Item Value Reference Range Interpretation Comments eGFR (test code = eGFR) 86 [facility]2014-09-22 14:26:00 Test Item Value Reference Range Interpretation Comments Creatinine Lvl (test code = Creatinine 0.8 0.5-1.4 Lvl) [facility]2014-09-22 14:26:00 Test Item Value Reference Range Interpretation Comments Chloride Lvl (test code = Chloride Lvl) 104 95-109 [facility]2014-09-22 14:26:00 Test Item Value Reference Range Interpretation Comments Potassium Lvl (test code = Potassium 3.7 3.5-5.1 Lvl) [facility]2014-09-22 14:26:00 Test Item Value Reference Range Interpretation Comments Sodium Lvl (test code = Sodium Lvl) 136 135-145 [facility]2014-09-22 14:26:00 Test Item Value Reference Range Interpretation Comments Calcium Lvl (test code = Calcium Lvl) 9.7 8.5-10.5 [facility] ClubIhdyidbXBTVSXHGLM1735-30-69 14:26:00 Test Item Value Reference Range Interpretation Comments MCV (test code = MCV) 101.6 80.0-98.0 [facility] ClubNgalboaABQDWDLEBH3990-50-96 14:26:00 Test Item Value Reference Range Interpretation Comments MCH (test code = MCH) 35.5 pg 27.0-31.0 [place] 585424-09-22 14:26:00 Test Item Value Reference Range Interpretation Comments Hgb (test code = Hgb) 13.3 12.0-16.0 [facility] ClubUkgxrumEKHQHWGRQB5483-92-86 14:26:00 Test Item Value Reference Range Interpretation Comments Hct (test code = Hct) 37.9 36.0-48.0 [facility] ClubOewxmmgBLJSUPZNUL3880-67-33 14:26:00 Test Item Value Reference Range Interpretation Comments RBC (test code = RBC) 3.73 4.20-5.40 [facility] ClubXlowrysFIDRNELQAV6364-15-63 14:26:00 Test Item Value Reference Range Interpretation Comments WBC (test code = WBC) 6.1 3.7-10.4 [facility] ClubFgieebfDVBDAAFZWT1415-99-08 14:26:00 Test Item Value Reference Range Interpretation Comments MPV (test code = MPV) 8.0 7.4-10.4 [facility] ClubWupjuyaNGKWYQWEVZ8509-79-14 14:26:00 Test Item Value Reference Range Interpretation Comments RDW (test code = RDW) 17.2 11.5-14.5 [facility] ClubLehyaitUEEKYNIZUL1166-28-02 14:26:00 Test Item Value Reference Range Interpretation Comments Platelet (test code = Platelet) 223 133-450 [facility] ClubRzeywxrNVRFRZQOPB6247-67-52 14:26:00 Test Item Value Reference Range Interpretation Comments MCHC (test code = MCHC) 35.0 32.0-36.0 [facility] ClubDseodkiNIBGSWYFTA5014-25-93 14:26:00 Test Item Value Reference Range Interpretation Comments INR (test code = INR) 0.93 0.85-1.17 [facility] ClubMbrtitdQQTDHWXVQQ7646-66-13 14:26:00 Test Item Value Reference Range Interpretation Comments PT (test code = PT) 12.4 s 12.0-14.7 [facility]2014-09-22 14:26:00 Test Item Value Reference Range Interpretation Comments BUN (test code = BUN) 8 7-22 [facility]2014-09-22 14:26:00 Test Item Value Reference Range Interpretation Comments Glucose Lvl (test code = Glucose Lvl) 91 70-99 [facility]2014-09-22 14:26:00 Test Item Value Reference Range Interpretation Comments CO2 (test code = CO2) 29 24-32 [facility]2014-09-22 14:26:00 Test Item Value Reference Range Interpretation Comments AGAP (test code = AGAP) 6.7 10.0-20.0 [facility]2014-09-22 14:26:00 Test Item Value Reference Range Interpretation Comments eGFR (test code = eGFR) 86 [facility]2014-09-22 14:26:00 Test Item Value Reference Range Interpretation Comments Creatinine Lvl (test code = Creatinine 0.8 0.5-1.4 Lvl) [facility]2014-09-22 14:26:00 Test Item Value Reference Range Interpretation Comments Chloride Lvl (test code = Chloride Lvl) 104 95-109 [facility]2014-09-22 14:26:00 Test Item Value Reference Range Interpretation Comments Potassium Lvl (test code = Potassium 3.7 3.5-5.1 Lvl) [facility]2014-09-22 14:26:00 Test Item Value Reference Range Interpretation Comments Sodium Lvl (test code = Sodium Lvl) 136 135-145 [facility]2014-09-22 14:26:00 Test Item Value Reference Range Interpretation Comments Calcium Lvl (test code = Calcium Lvl) 9.7 8.5-10.5 [facility] ClubRkjgztcHQEYWYGIYM9105-67-95 14:26:00 Test Item Value Reference Range Interpretation Comments MCV (test code = MCV) 101.6 80.0-98.0 [facility] ClubMrgiqihXUAAQFSVGS4363-71-93 14:26:00 Test Item Value Reference Range Interpretation Comments MCH (test code = MCH) 35.5 pg 27.0-31.0 [facility] ClubBwatwhcVQSHOGZBUD2295-25-60 14:26:00 Test Item Value Reference Range Interpretation Comments Hgb (test code = Hgb) 13.3 12.0-16.0 [facility] ClubAhprfjpJRJCVKHAAX7928-74-06 14:26:00 Test Item Value Reference Range Interpretation Comments Hct (test code = Hct) 37.9 36.0-48.0 [facility] ClubJiphqziUZYFIDJMUY4765-01-49 14:26:00 Test Item Value Reference Range Interpretation Comments RBC (test code = RBC) 3.73 4.20-5.40 [facility] ClubAsxnlyaGMOVNLFSXM9493-80-63 14:26:00 Test Item Value Reference Range Interpretation Comments WBC (test code = WBC) 6.1 3.7-10.4 [facility] ClubZnxkxtbXYLLPJHQPZ4140-20-09 14:26:00 Test Item Value Reference Range Interpretation Comments MPV (test code = MPV) 8.0 7.4-10.4 [facility] ClubQeumhkkFJYFXCPAUR6759-60-01 14:26:00 Test Item Value Reference Range Interpretation Comments RDW (test code = RDW) 17.2 11.5-14.5 [facility] ClubGvabtbuKRLKKYZNVK0312-73-98 14:26:00 Test Item Value Reference Range Interpretation Comments Platelet (test code = Platelet) 223 133-450 [facility] ClubEsyiaerONBUSVXHXW9830-41-20 14:26:00 Test Item Value Reference Range Interpretation Comments MCHC (test code = MCHC) 35.0 32.0-36.0 [facility] ClubNvwsliaJFTHPFMRHT7420-65-74 14:26:00 Test Item Value Reference Range Interpretation Comments INR (test code = INR) 0.93 0.85-1.17 [facility] ClubTepywebORDJMCVISG5794-98-13 14:26:00 Test Item Value Reference Range Interpretation Comments PT (test code = PT) 12.4 s 12.0-14.7 [facility]2014-09-22 14:26:00 Test Item Value Reference Range Interpretation Comments BUN (test code = BUN) 8 7-22 [facility]2014-09-22 14:26:00 Test Item Value Reference Range Interpretation Comments Glucose Lvl (test code = Glucose Lvl) 91 70-99 [facility]2014-09-22 14:26:00 Test Item Value Reference Range Interpretation Comments CO2 (test code = CO2) 29 24-32 [facility]2014-09-22 14:26:00 Test Item Value Reference Range Interpretation Comments AGAP (test code = AGAP) 6.7 10.0-20.0 [facility]2014-09-22 14:26:00 Test Item Value Reference Range Interpretation Comments eGFR (test code = eGFR) 86 [facility]2014-09-22 14:26:00 Test Item Value Reference Range Interpretation Comments Creatinine Lvl (test code = Creatinine 0.8 0.5-1.4 Lvl) [facility]2014-09-22 14:26:00 Test Item Value Reference Range Interpretation Comments Chloride Lvl (test code = Chloride Lvl) 104 95-109 [facility]2014-09-22 14:26:00 Test Item Value Reference Range Interpretation Comments Potassium Lvl (test code = Potassium 3.7 3.5-5.1 Lvl) [facility]2014-09-22 14:26:00 Test Item Value Reference Range Interpretation Comments Sodium Lvl (test code = Sodium Lvl) 136 135-145 [facility]2014-09-22 14:26:00 Test Item Value Reference Range Interpretation Comments Calcium Lvl (test code = Calcium Lvl) 9.7 8.5-10.5 [facility] ClubYyhgjntXWLCXCIORB9146-60-83 14:26:00 Test Item Value Reference Range Interpretation Comments MCV (test code = MCV) 101.6 80.0-98.0 [facility] ClubMufeqdgJIYJKQRSZM9969-31-90 14:26:00 Test Item Value Reference Range Interpretation Comments MCH (test code = MCH) 35.5 pg 27.0-31.0 [facility] ClubKywaaitLLERPNEAJC6580-80-10 14:26:00 Test Item Value Reference Range Interpretation Comments Hgb (test code = Hgb) 13.3 12.0-16.0 [facility] ClubHkmdrjsZYOSAFZQLQ1251-98-95 14:26:00 Test Item Value Reference Range Interpretation Comments Hct (test code = Hct) 37.9 36.0-48.0 [facility] ClubXicfrhuNRPGNPCCYN9760-58-59 14:26:00 Test Item Value Reference Range Interpretation Comments RBC (test code = RBC) 3.73 4.20-5.40 [facility] ClubKskknvpTTRTESDYET4898-35-79 14:26:00 Test Item Value Reference Range Interpretation Comments WBC (test code = WBC) 6.1 3.7-10.4 [place] 585424-09-22 14:26:00 Test Item Value Reference Range Interpretation Comments MPV (test code = MPV) 8.0 7.4-10.4 [place] 585424-09-22 14:26:00 Test Item Value Reference Range Interpretation Comments RDW (test code = RDW) 17.2 11.5-14.5 [facility] ClubBajdylyZKTBGMYHKW9130-12-88 14:26:00 Test Item Value Reference Range Interpretation Comments Platelet (test code = Platelet) 223 133-450 [facility] ClubRgehxneSRRVLODIZW5852-98-24 14:26:00 Test Item Value Reference Range Interpretation Comments MCHC (test code = MCHC) 35.0 32.0-36.0 [facility] ClubJpjgzcvKEIPMKWNWK5205-15-48 14:26:00 Test Item Value Reference Range Interpretation Comments INR (test code = INR) 0.93 0.85-1.17 [facility] ClubMycmhmdZCOTRRIXHT5225-63-62 14:26:00 Test Item Value Reference Range Interpretation Comments PT (test code = PT) 12.4 s 12.0-14.7 [facility]2014-09-22 14:26:00 Test Item Value Reference Range Interpretation Comments BUN (test code = BUN) 8 - [facility]2014-09-22 14:26:00 Test Item Value Reference Range Interpretation Comments Glucose Lvl (test code = Glucose Lvl) 91 70-99 [facility]2014-09-22 14:26:00 Test Item Value Reference Range Interpretation Comments CO2 (test code = CO2) 29 24-32 [facility]2014-09-22 14:26:00 Test Item Value Reference Range Interpretation Comments AGAP (test code = AGAP) 6.7 10.0-20.0 [facility]2014-09-22 14:26:00 Test Item Value Reference Range Interpretation Comments eGFR (test code = eGFR) 86 [facility]2014-09-22 14:26:00 Test Item Value Reference Range Interpretation Comments Creatinine Lvl (test code = Creatinine 0.8 0.5-1.4 Lvl) [facility]2014-09-22 14:26:00 Test Item Value Reference Range Interpretation Comments Chloride Lvl (test code = Chloride Lvl) 104 95-109 [facility]2014-09-22 14:26:00 Test Item Value Reference Range Interpretation Comments Potassium Lvl (test code = Potassium 3.7 3.5-5.1 Lvl) [facility]2014-09-22 14:26:00 Test Item Value Reference Range Interpretation Comments Sodium Lvl (test code = Sodium Lvl) 136 135-145 [facility]2014-09-22 14:26:00 Test Item Value Reference Range Interpretation Comments Calcium Lvl (test code = Calcium Lvl) 9.7 8.5-10.5 [facility] ClubVbamtirXAXHTMXTUY3789-43-53 14:26:00 Test Item Value Reference Range Interpretation Comments MCV (test code = MCV) 101.6 80.0-98.0 [facility] ClubZoiqdrdUGDKAQWQQL7246-90-14 14:26:00 Test Item Value Reference Range Interpretation Comments MCH (test code = MCH) 35.5 pg 27.0-31.0 [facility] ClubHmolmfnKBSYEUWVYW7193-12-28 14:26:00 Test Item Value Reference Range Interpretation Comments Hgb (test code = Hgb) 13.3 12.0-16.0 [facility] ClubQwvstopORVROMFMSR5270-35-06 14:26:00 Test Item Value Reference Range Interpretation Comments Hct (test code = Hct) 37.9 36.0-48.0 [facility] ClubFqhkjnkZHFJMYQMXD0154-47-92 14:26:00 Test Item Value Reference Range Interpretation Comments RBC (test code = RBC) 3.73 4.20-5.40 [facility] ClubAturgunNBOBSLNTJE7733-48-34 14:26:00 Test Item Value Reference Range Interpretation Comments WBC (test code = WBC) 6.1 3.7-10.4 [facility] ClubWobosukTRSAEFVYSY6072-93-28 14:26:00 Test Item Value Reference Range Interpretation Comments MPV (test code = MPV) 8.0 7.4-10.4 [facility] ClubWvsckydFTRJJWDRAH2927-37-88 14:26:00 Test Item Value Reference Range Interpretation Comments RDW (test code = RDW) 17.2 11.5-14.5 [facility] ClubSujcgbuHTVXGQLCKA6922-40-94 14:26:00 Test Item Value Reference Range Interpretation Comments Platelet (test code = Platelet) 223 133-450 [facility] ClubOanqzwgRKYMBNBFNZ3006-80-08 14:26:00 Test Item Value Reference Range Interpretation Comments MCHC (test code = MCHC) 35.0 32.0-36.0 [facility] ClubVfsczqnOBUUGOGFYQ7687-35-11 14:26:00 Test Item Value Reference Range Interpretation Comments INR (test code = INR) 0.93 0.85-1.17 [facility] ClubYynfcllHTGDEQNYUF6850-58-28 14:26:00 Test Item Value Reference Range Interpretation Comments PT (test code = PT) 12.4 s 12.0-14.7 [facility]2014-09-22 14:26:00 Test Item Value Reference Range Interpretation Comments BUN (test code = BUN) 8 7- [facility]2014-09-22 14:26:00 Test Item Value Reference Range Interpretation Comments Glucose Lvl (test code = Glucose Lvl) 91 70-99 [facility]2014-09-22 14:26:00 Test Item Value Reference Range Interpretation Comments CO2 (test code = CO2) 29 24-32 [facility]2014-09-22 14:26:00 Test Item Value Reference Range Interpretation Comments AGAP (test code = AGAP) 6.7 10.0-20.0 [facility]2014-09-22 14:26:00 Test Item Value Reference Range Interpretation Comments eGFR (test code = eGFR) 86 [facility]2014-09-22 14:26:00 Test Item Value Reference Range Interpretation Comments Creatinine Lvl (test code = Creatinine 0.8 0.5-1.4 Lvl) [facility]2014-09-22 14:26:00 Test Item Value Reference Range Interpretation Comments Chloride Lvl (test code = Chloride Lvl) 104 95-109 [facility]2014-09-22 14:26:00 Test Item Value Reference Range Interpretation Comments Potassium Lvl (test code = Potassium 3.7 3.5-5.1 Lvl) [facility]2014-09-22 14:26:00 Test Item Value Reference Range Interpretation Comments Sodium Lvl (test code = Sodium Lvl) 136 135-145 [facility]2014-09-22 14:26:00 Test Item Value Reference Range Interpretation Comments Calcium Lvl (test code = Calcium Lvl) 9.7 8.5-10.5 [facility] ClubXmsjshnQFQKIPRGSD4162-11-43 14:26:00 Test Item Value Reference Range Interpretation Comments MCV (test code = MCV) 101.6 80.0-98.0 [facility] ClubGnuynprYEIAAJJLJL3967-75-05 14:26:00 Test Item Value Reference Range Interpretation Comments MCH (test code = MCH) 35.5 pg 27.0-31.0 [facility] ClubMjktqwcYXCOLFVIRZ3676-87-16 14:26:00 Test Item Value Reference Range Interpretation Comments Hgb (test code = Hgb) 13.3 12.0-16.0 [facility] ClubYujrhenOKBFBWRQKG6231-34-14 14:26:00 Test Item Value Reference Range Interpretation Comments Hct (test code = Hct) 37.9 36.0-48.0 [facility] ClubOfqvvwlSGUEFWIMLY0398-26-30 14:26:00 Test Item Value Reference Range Interpretation Comments RBC (test code = RBC) 3.73 4.20-5.40 [facility] ClubFbgxwctBWZFHMRWIR0415-30-92 14:26:00 Test Item Value Reference Range Interpretation Comments WBC (test code = WBC) 6.1 3.7-10.4 [facility] ClubBzltofoUDPYYECYXT3793-08-57 14:26:00 Test Item Value Reference Range Interpretation Comments MPV (test code = MPV) 8.0 7.4-10.4 [facility] ClubYxxhkxsZBWLKWCTLB6419-08-39 14:26:00 Test Item Value Reference Range Interpretation Comments RDW (test code = RDW) 17.2 11.5-14.5 [facility] ClubLkjzwhpTFGZAFTDSA3968-12-19 14:26:00 Test Item Value Reference Range Interpretation Comments Platelet (test code = Platelet) 223 133-450 [facility] ClubJfvwzhwQRXKBRMXDY9933-01-46 14:26:00 Test Item Value Reference Range Interpretation Comments MCHC (test code = MCHC) 35.0 32.0-36.0 [facility] ClubFmgxlfgYAEBNMEWZT1647-49-09 14:26:00 Test Item Value Reference Range Interpretation Comments INR (test code = INR) 0.93 0.85-1.17 [facility] ClubMzuxlcwFLUJSSTOBB9275-57-85 14:26:00 Test Item Value Reference Range Interpretation Comments PT (test code = PT) 12.4 s 12.0-14.7 [facility]2014-09-22 14:26:00 Test Item Value Reference Range Interpretation Comments BUN (test code = BUN) 8 7-22 [facility]2014-09-22 14:26:00 Test Item Value Reference Range Interpretation Comments Glucose Lvl (test code = Glucose Lvl) 91 70-99 [facility]2014-09-22 14:26:00 Test Item Value Reference Range Interpretation Comments CO2 (test code = CO2) 29 24-32 [facility]2014-09-22 14:26:00 Test Item Value Reference Range Interpretation Comments AGAP (test code = AGAP) 6.7 10.0-20.0 [facility]2014-09-22 14:26:00 Test Item Value Reference Range Interpretation Comments eGFR (test code = eGFR) 86 [facility]2014-09-22 14:26:00 Test Item Value Reference Range Interpretation Comments Creatinine Lvl (test code = Creatinine 0.8 0.5-1.4 Lvl) [facility]2014-09-22 14:26:00 Test Item Value Reference Range Interpretation Comments Chloride Lvl (test code = Chloride Lvl) 104 95-109 [facility]2014-09-22 14:26:00 Test Item Value Reference Range Interpretation Comments Potassium Lvl (test code = Potassium 3.7 3.5-5.1 Lvl) [facility]2014-09-22 14:26:00 Test Item Value Reference Range Interpretation Comments Sodium Lvl (test code = Sodium Lvl) 136 135-145 [facility]2014-09-22 14:26:00 Test Item Value Reference Range Interpretation Comments Calcium Lvl (test code = Calcium Lvl) 9.7 8.5-10.5 [facility] ClubFoxhwpsILNQYKPQOS9303-17-13 14:26:00 Test Item Value Reference Range Interpretation Comments MCV (test code = MCV) 101.6 80.0-98.0 [facility] ClubYoqylhxLYXCMSCWNJ5753-87-82 14:26:00 Test Item Value Reference Range Interpretation Comments MCH (test code = MCH) 35.5 pg 27.0-31.0 [facility] ClubFchhaqkCOZZIENGRK8208-73-45 14:26:00 Test Item Value Reference Range Interpretation Comments Hgb (test code = Hgb) 13.3 12.0-16.0 [facility] ClubEkddonoXSRTSPMYDG1771-74-41 14:26:00 Test Item Value Reference Range Interpretation Comments Hct (test code = Hct) 37.9 36.0-48.0 [facility] ClubAusmxdjZEOSAXJAUG8505-49-64 14:26:00 Test Item Value Reference Range Interpretation Comments RBC (test code = RBC) 3.73 4.20-5.40 [place] 585424-09-22 14:26:00 Test Item Value Reference Range Interpretation Comments WBC (test code = WBC) 6.1 3.7-10.4 [facility] ClubUgrjgqjJSRZPHUXRF0057-73-68 14:26:00 Test Item Value Reference Range Interpretation Comments MPV (test code = MPV) 8.0 7.4-10.4 [facility] ClubUtgareaCJFBWIUZPI1903-41-45 14:26:00 Test Item Value Reference Range Interpretation Comments RDW (test code = RDW) 17.2 11.5-14.5 [facility] ClubYbvwavjHOCWQCAPHH7335-93-38 14:26:00 Test Item Value Reference Range Interpretation Comments Platelet (test code = Platelet) 223 133-450 [facility] ClubLcexppsDEHUWQQKDL2357-99-55 14:26:00 Test Item Value Reference Range Interpretation Comments MCHC (test code = MCHC) 35.0 32.0-36.0 [facility] ClubNdfqcwsVBKEZDNXCU1319-11-49 14:26:00 Test Item Value Reference Range Interpretation Comments INR (test code = INR) 0.93 0.85-1.17 [facility] ClubBwickidWUXPUTLOEL7109-79-52 14:26:00 Test Item Value Reference Range Interpretation Comments PT (test code = PT) 12.4 s 12.0-14.7 [facility]2014-09-22 14:26:00 Test Item Value Reference Range Interpretation Comments BUN (test code = BUN) 8 7-22 [facility]2014-09-22 14:26:00 Test Item Value Reference Range Interpretation Comments Glucose Lvl (test code = Glucose Lvl) 91 70-99 [facility]2014-09-22 14:26:00 Test Item Value Reference Range Interpretation Comments CO2 (test code = CO2) 29 24-32 [facility]2014-09-22 14:26:00 Test Item Value Reference Range Interpretation Comments AGAP (test code = AGAP) 6.7 10.0-20.0 [facility]2014-09-22 14:26:00 Test Item Value Reference Range Interpretation Comments eGFR (test code = eGFR) 86 [facility]2014-09-22 14:26:00 Test Item Value Reference Range Interpretation Comments Creatinine Lvl (test code = Creatinine 0.8 0.5-1.4 Lvl) [facility]2014-09-22 14:26:00 Test Item Value Reference Range Interpretation Comments Chloride Lvl (test code = Chloride Lvl) 104 95-109 [facility]2014-09-22 14:26:00 Test Item Value Reference Range Interpretation Comments Potassium Lvl (test code = Potassium 3.7 3.5-5.1 Lvl) [facility]2014-09-22 14:26:00 Test Item Value Reference Range Interpretation Comments Sodium Lvl (test code = Sodium Lvl) 136 135-145 [facility]2014-09-22 14:26:00 Test Item Value Reference Range Interpretation Comments Calcium Lvl (test code = Calcium Lvl) 9.7 8.5-10.5 [facility] ClubAskcgwbDUVSINPWYF3950-84-73 14:26:00 Test Item Value Reference Range Interpretation Comments MCV (test code = MCV) 101.6 80.0-98.0 [facility] ClubItrurxzAYTSHMHTXT9995-14-86 14:26:00 Test Item Value Reference Range Interpretation Comments MCH (test code = MCH) 35.5 pg 27.0-31.0 [facility] ClubCffgmfyIMYEKGKZSV5585-03-49 14:26:00 Test Item Value Reference Range Interpretation Comments Hgb (test code = Hgb) 13.3 12.0-16.0 [facility] ClubFxpcevtMTJRDUOETY5366-47-49 14:26:00 Test Item Value Reference Range Interpretation Comments Hct (test code = Hct) 37.9 36.0-48.0 [facility] ClubZwcgkzfMCWKHVCKKL2061-59-61 14:26:00 Test Item Value Reference Range Interpretation Comments RBC (test code = RBC) 3.73 4.20-5.40 [facility] ClubFghgtmoXTNOVRXOUT8310-59-93 14:26:00 Test Item Value Reference Range Interpretation Comments WBC (test code = WBC) 6.1 3.7-10.4 [facility] ClubVvpqoblLWFAUGRJZI1169-81-29 14:26:00 Test Item Value Reference Range Interpretation Comments MPV (test code = MPV) 8.0 7.4-10.4 [facility] ClubCgtnmahBTAWYYACTO7596-30-25 14:26:00 Test Item Value Reference Range Interpretation Comments RDW (test code = RDW) 17.2 11.5-14.5 [facility] ClubNvjafrlSQACFEUTEY0490-08-95 14:26:00 Test Item Value Reference Range Interpretation Comments Platelet (test code = Platelet) 223 133-450 [facility] ClubYzcjsocKFBBGVAXAA5538-37-90 14:26:00 Test Item Value Reference Range Interpretation Comments MCHC (test code = MCHC) 35.0 32.0-36.0 [facility] ClubYswjnzaLVYBQXDWTE5419-16-39 14:26:00 Test Item Value Reference Range Interpretation Comments INR (test code = INR) 0.93 0.85-1.17 [facility] ClubSskgzelBXBGAEIWIV5674-42-45 14:26:00 Test Item Value Reference Range Interpretation Comments PT (test code = PT) 12.4 s 12.0-14.7 [facility]2014-09-22 14:26:00 Test Item Value Reference Range Interpretation Comments BUN (test code = BUN) 8 7-22 [facility]2014-09-22 14:26:00 Test Item Value Reference Range Interpretation Comments Glucose Lvl (test code = Glucose Lvl) 91 70-99 [facility]2014-09-22 14:26:00 Test Item Value Reference Range Interpretation Comments CO2 (test code = CO2) 29 24-32 [facility]2014-09-22 14:26:00 Test Item Value Reference Range Interpretation Comments AGAP (test code = AGAP) 6.7 10.0-20.0 [facility]2014-09-22 14:26:00 Test Item Value Reference Range Interpretation Comments eGFR (test code = eGFR) 86 [facility]2014-09-22 14:26:00 Test Item Value Reference Range Interpretation Comments Creatinine Lvl (test code = Creatinine 0.8 0.5-1.4 Lvl) [facility]2014-09-22 14:26:00 Test Item Value Reference Range Interpretation Comments Chloride Lvl (test code = Chloride Lvl) 104 95-109 [facility]2014-09-22 14:26:00 Test Item Value Reference Range Interpretation Comments Potassium Lvl (test code = Potassium 3.7 3.5-5.1 Lvl) [facility]2014-09-22 14:26:00 Test Item Value Reference Range Interpretation Comments Sodium Lvl (test code = Sodium Lvl) 136 135-145 [facility]2014-09-22 14:26:00 Test Item Value Reference Range Interpretation Comments Calcium Lvl (test code = Calcium Lvl) 9.7 8.5-10.5 [facility] ClubNunukduOMFGBPOQBC0581-37-97 14:26:00 Test Item Value Reference Range Interpretation Comments MCV (test code = MCV) 101.6 80.0-98.0 [facility] ClubTqwoiuyNXTLOIBOQV0202-38-78 14:26:00 Test Item Value Reference Range Interpretation Comments MCH (test code = MCH) 35.5 pg 27.0-31.0 [facility] ClubIrepuhsRBYBZPMYQQ3175-72-31 14:26:00 Test Item Value Reference Range Interpretation Comments Hgb (test code = Hgb) 13.3 12.0-16.0 [facility] ClubXnbvvmqBPRJRMGFTQ4213-23-28 14:26:00 Test Item Value Reference Range Interpretation Comments Hct (test code = Hct) 37.9 36.0-48.0 [facility] ClubGcbchpzWKEPEDBOQY6437-24-80 14:26:00 Test Item Value Reference Range Interpretation Comments RBC (test code = RBC) 3.73 4.20-5.40 [facility] ClubBlevlgfKIDBWJSUPE1354-35-25 14:26:00 Test Item Value Reference Range Interpretation Comments WBC (test code = WBC) 6.1 3.7-10.4 [facility] ClubBlshhooPNEYUKQBLP6185-66-57 14:26:00 Test Item Value Reference Range Interpretation Comments MPV (test code = MPV) 8.0 7.4-10.4 [facility] ClubIooentnJDDJLLTYOY0669-54-92 14:26:00 Test Item Value Reference Range Interpretation Comments RDW (test code = RDW) 17.2 11.5-14.5 [facility] ClubXdqhhxxASOXRPMRJX7624-39-43 14:26:00 Test Item Value Reference Range Interpretation Comments Platelet (test code = Platelet) 223 133-450 [facility] ClubVudxqekDIQXLFXDVQ8965-20-25 14:26:00 Test Item Value Reference Range Interpretation Comments MCHC (test code = MCHC) 35.0 32.0-36.0 [facility] ClubPgytvbwOILWGVUUXU1237-82-93 14:26:00 Test Item Value Reference Range Interpretation Comments INR (test code = INR) 0.93 0.85-1.17 [facility] ClubFhjpurrCTBWZMSWNP2679-37-79 14:26:00 Test Item Value Reference Range Interpretation Comments PT (test code = PT) 12.4 s 12.0-14.7 [facility]2014-09-22 14:26:00 Test Item Value Reference Range Interpretation Comments BUN (test code = BUN) 8 7- [facility]2014-09-22 14:26:00 Test Item Value Reference Range Interpretation Comments Glucose Lvl (test code = Glucose Lvl) 91 70-99 [facility]2014-09-22 14:26:00 Test Item Value Reference Range Interpretation Comments CO2 (test code = CO2) 29 24-32 [facility]2014-09-22 14:26:00 Test Item Value Reference Range Interpretation Comments AGAP (test code = AGAP) 6.7 10.0-20.0 [facility]2014-09-22 14:26:00 Test Item Value Reference Range Interpretation Comments eGFR (test code = eGFR) 86 [facility]2014-09-22 14:26:00 Test Item Value Reference Range Interpretation Comments Creatinine Lvl (test code = Creatinine 0.8 0.5-1.4 Lvl) [facility]2014-09-22 14:26:00 Test Item Value Reference Range Interpretation Comments Chloride Lvl (test code = Chloride Lvl) 104 95-109 [facility]2014-09-22 14:26:00 Test Item Value Reference Range Interpretation Comments Potassium Lvl (test code = Potassium 3.7 3.5-5.1 Lvl) [facility]2014-09-22 14:26:00 Test Item Value Reference Range Interpretation Comments Sodium Lvl (test code = Sodium Lvl) 136 135-145 [facility]2014-09-22 14:26:00 Test Item Value Reference Range Interpretation Comments Calcium Lvl (test code = Calcium Lvl) 9.7 8.5-10.5 [facility] ClubMpcxisvPUOMBLIDOF6594-54-04 14:26:00 Test Item Value Reference Range Interpretation Comments MCV (test code = MCV) 101.6 80.0-98.0 [facility] ClubTwaanwfJMUQBLMMZM7743-91-98 14:26:00 Test Item Value Reference Range Interpretation Comments MCH (test code = MCH) 35.5 pg 27.0-31.0 [facility] ClubPczlavwAITCAVKXGN1276-58-73 14:26:00 Test Item Value Reference Range Interpretation Comments Hgb (test code = Hgb) 13.3 12.0-16.0 [facility] ClubBfblmcvRNAIKPURPL4292-10-29 14:26:00 Test Item Value Reference Range Interpretation Comments Hct (test code = Hct) 37.9 36.0-48.0 [facility] ClubPsayglwSIZKOWCJUX6084-88-87 14:26:00 Test Item Value Reference Range Interpretation Comments RBC (test code = RBC) 3.73 4.20-5.40 [facility] ClubLosvomoJHUYEJHHMB1409-32-92 14:26:00 Test Item Value Reference Range Interpretation Comments WBC (test code = WBC) 6.1 3.7-10.4 [facility] ClubXqixircGLXOOVAFNL0036-58-58 14:26:00 Test Item Value Reference Range Interpretation Comments MPV (test code = MPV) 8.0 7.4-10.4 [facility] ClubQxkcstqBTHYCGYCWQ9365-92-88 14:26:00 Test Item Value Reference Range Interpretation Comments RDW (test code = RDW) 17.2 11.5-14.5 [facility] ClubGhspjqpITOXLXRFWY7578-99-98 14:26:00 Test Item Value Reference Range Interpretation Comments Platelet (test code = Platelet) 223 133-450 [facility] ClubHhfbpktPXNPYHACXY3590-97-66 14:26:00 Test Item Value Reference Range Interpretation Comments MCHC (test code = MCHC) 35.0 32.0-36.0 [facility] ClubPzttomkXOKAEECSMT7150-87-61 14:26:00 Test Item Value Reference Range Interpretation Comments INR (test code = INR) 0.93 0.85-1.17 [facility] ClubEhtatagTAMFXZNPXG7946-55-17 14:26:00 Test Item Value Reference Range Interpretation Comments PT (test code = PT) 12.4 s 12.0-14.7 [facility]2014-09-22 14:26:00 Test Item Value Reference Range Interpretation Comments BUN (test code = BUN) 8 7-22 [facility]2014-09-22 14:26:00 Test Item Value Reference Range Interpretation Comments Glucose Lvl (test code = Glucose Lvl) 91 70-99 [facility]2014-09-22 14:26:00 Test Item Value Reference Range Interpretation Comments CO2 (test code = CO2) 29 24-32 [facility]2014-09-22 14:26:00 Test Item Value Reference Range Interpretation Comments AGAP (test code = AGAP) 6.7 10.0-20.0 [facility]2014-09-22 14:26:00 Test Item Value Reference Range Interpretation Comments eGFR (test code = eGFR) 86 [facility]2014-09-22 14:26:00 Test Item Value Reference Range Interpretation Comments Creatinine Lvl (test code = Creatinine 0.8 0.5-1.4 Lvl) [facility]2014-09-22 14:26:00 Test Item Value Reference Range Interpretation Comments Chloride Lvl (test code = Chloride Lvl) 104 95-109 [facility]2014-09-22 14:26:00 Test Item Value Reference Range Interpretation Comments Potassium Lvl (test code = Potassium 3.7 3.5-5.1 Lvl) [facility]2014-09-22 14:26:00 Test Item Value Reference Range Interpretation Comments Sodium Lvl (test code = Sodium Lvl) 136 135-145 [facility] [facility] 14:26:00 Test Item Value Reference Range Interpretation Comments Calcium Lvl (test code = Calcium Lvl) 9.7 8.5-10.5 [facility] ClubFktlfamYAARWIVMDG8122-96-49 14:26:00 Test Item Value Reference Range Interpretation Comments MCV (test code = MCV) 101.6 80.0-98.0 [facility] ClubTtcbpsdQEOTCAVPCJ1735-46-61 14:26:00 Test Item Value Reference Range Interpretation Comments MCH (test code = MCH) 35.5 pg 27.0-31.0 [facility] ClubNflhgqnBSPSZRXIKL7279-55-85 14:26:00 Test Item Value Reference Range Interpretation Comments Hgb (test code = Hgb) 13.3 12.0-16.0 [facility] ClubTrmgxmgZMSQMLVIRP6745-21-56 14:26:00 Test Item Value Reference Range Interpretation Comments Hct (test code = Hct) 37.9 36.0-48.0 [facility] ClubSvrkqseANHQBHNGMA8211-59-89 14:26:00 Test Item Value Reference Range Interpretation Comments RBC (test code = RBC) 3.73 4.20-5.40 [facility] ClubCwvwhimOAMDYTOXZM2897-77-40 14:26:00 Test Item Value Reference Range Interpretation Comments WBC (test code = WBC) 6.1 3.7-10.4 [facility] ClubTkhhcdhDEQDYJBGQZ1016-28-61 14:26:00 Test Item Value Reference Range Interpretation Comments MPV (test code = MPV) 8.0 7.4-10.4 [facility] ClubRshrovePRCPLNKIZN1255-63-84 14:26:00 Test Item Value Reference Range Interpretation Comments RDW (test code = RDW) 17.2 11.5-14.5 [facility] ClubFhnqievXARUQBPWTL4589-17-92 14:26:00 Test Item Value Reference Range Interpretation Comments Platelet (test code = Platelet) 223 133-450 [facility] ClubActmrmkNQXTDLVLON1152-81-46 14:26:00 Test Item Value Reference Range Interpretation Comments MCHC (test code = MCHC) 35.0 32.0-36.0 [facility] ClubTmphjqyFRJOVZRUUZ7785-89-75 14:26:00 Test Item Value Reference Range Interpretation Comments INR (test code = INR) 0.93 0.85-1.17 [facility] ClubBkhmbxyOXQVONPPAU2218-60-61 14:26:00 Test Item Value Reference Range Interpretation Comments PT (test code = PT) 12.4 s 12.0-14.7 [facility]2014-09-22 14:26:00 Test Item Value Reference Range Interpretation Comments BUN (test code = BUN) 8 7-22 [facility]2014-09-22 14:26:00 Test Item Value Reference Range Interpretation Comments Glucose Lvl (test code = Glucose Lvl) 91 70-99 [facility]2014-09-22 14:26:00 Test Item Value Reference Range Interpretation Comments CO2 (test code = CO2) 29 24-32 [facility]2014-09-22 14:26:00 Test Item Value Reference Range Interpretation Comments AGAP (test code = AGAP) 6.7 10.0-20.0 [facility]2014-09-22 14:26:00 Test Item Value Reference Range Interpretation Comments eGFR (test code = eGFR) 86 [facility]2014-09-22 14:26:00 Test Item Value Reference Range Interpretation Comments Creatinine Lvl (test code = Creatinine 0.8 0.5-1.4 Lvl) [facility]2014-09-22 14:26:00 Test Item Value Reference Range Interpretation Comments Chloride Lvl (test code = Chloride Lvl) 104 95-109 [facility]2014-09-22 14:26:00 Test Item Value Reference Range Interpretation Comments Potassium Lvl (test code = Potassium 3.7 3.5-5.1 Lvl) [facility]2014-09-22 14:26:00 Test Item Value Reference Range Interpretation Comments Sodium Lvl (test code = Sodium Lvl) 136 135-145 [facility]2014-09-22 14:26:00 Test Item Value Reference Range Interpretation Comments Calcium Lvl (test code = Calcium Lvl) 9.7 8.5-10.5 [facility] ClubBosxarzJPBCXYVYDP7804-74-80 14:26:00 Test Item Value Reference Range Interpretation Comments MCV (test code = MCV) 101.6 80.0-98.0 [facility] ClubKohiyqxOSUHRYYDGV6152-65-01 14:26:00 Test Item Value Reference Range Interpretation Comments MCH (test code = MCH) 35.5 pg 27.0-31.0 [facility] ClubOxyzumtUACZPUVATW5999-53-23 14:26:00 Test Item Value Reference Range Interpretation Comments Hgb (test code = Hgb) 13.3 12.0-16.0 [facility] ClubSzsdgfjCRZEJXRWRG8917-95-38 14:26:00 Test Item Value Reference Range Interpretation Comments Hct (test code = Hct) 37.9 36.0-48.0 [facility] ClubJxnjfrsIANUTLHKTB8076-46-98 14:26:00 Test Item Value Reference Range Interpretation Comments RBC (test code = RBC) 3.73 4.20-5.40 [facility] ClubKimjrhsUVCQJGUBXO2606-17-39 14:26:00 Test Item Value Reference Range Interpretation Comments WBC (test code = WBC) 6.1 3.7-10.4 [facility] ClubPqtxpuzKPXRYYWJML7236-22-16 14:26:00 Test Item Value Reference Range Interpretation Comments MPV (test code = MPV) 8.0 7.4-10.4 [facility] ClubNbafygtGYTLNGWGPF6951-37-35 14:26:00 Test Item Value Reference Range Interpretation Comments RDW (test code = RDW) 17.2 11.5-14.5 [facility] ClubKbcojmeVNFWIIHAAU8069-40-44 14:26:00 Test Item Value Reference Range Interpretation Comments Platelet (test code = Platelet) 223 133-450 [facility] ClubVlwjcprRUPQPQXVQQ6686-46-69 14:26:00 Test Item Value Reference Range Interpretation Comments MCHC (test code = MCHC) 35.0 32.0-36.0 [facility] ClubDhuwmsvNGSYRLWLMU9688-86-84 14:26:00 Test Item Value Reference Range Interpretation Comments INR (test code = INR) 0.93 0.85-1.17 [facility] ClubPqjwfyuFRKHPZZWOY7815-47-97 14:26:00 Test Item Value Reference Range Interpretation Comments PT (test code = PT) 12.4 s 12.0-14.7 [facility]2014-09-22 14:26:00 Test Item Value Reference Range Interpretation Comments BUN (test code = BUN) 8 - [facility]2014-09-22 14:26:00 Test Item Value Reference Range Interpretation Comments Glucose Lvl (test code = Glucose Lvl) 91 70-99 [facility]2014-09-22 14:26:00 Test Item Value Reference Range Interpretation Comments CO2 (test code = CO2) 29 24-32 [facility]2014-09-22 14:26:00 Test Item Value Reference Range Interpretation Comments AGAP (test code = AGAP) 6.7 10.0-20.0 [facility]2014-09-22 14:26:00 Test Item Value Reference Range Interpretation Comments eGFR (test code = eGFR) 86 [facility]2014-09-22 14:26:00 Test Item Value Reference Range Interpretation Comments Creatinine Lvl (test code = Creatinine 0.8 0.5-1.4 Lvl) [facility]2014-09-22 14:26:00 Test Item Value Reference Range Interpretation Comments Chloride Lvl (test code = Chloride Lvl) 104 95-109 [facility]2014-09-22 14:26:00 Test Item Value Reference Range Interpretation Comments Potassium Lvl (test code = Potassium 3.7 3.5-5.1 Lvl) [facility]2014-09-22 14:26:00 Test Item Value Reference Range Interpretation Comments Sodium Lvl (test code = Sodium Lvl) 136 135-145 [facility]2014-09-22 14:26:00 Test Item Value Reference Range Interpretation Comments Calcium Lvl (test code = Calcium Lvl) 9.7 8.5-10.5 [place] 585424-09-22 14:26:00 Test Item Value Reference Range Interpretation Comments MCV (test code = MCV) 101.6 80.0-98.0 [facility] ClubEagquehVXVCLFVCIC3143-89-40 14:26:00 Test Item Value Reference Range Interpretation Comments MCH (test code = MCH) 35.5 pg 27.0-31.0 [facility] ClubVcpciomMCCNDBGAHH9872-61-32 14:26:00 Test Item Value Reference Range Interpretation Comments Hgb (test code = Hgb) 13.3 12.0-16.0 [facility] ClubWiawdojRSBFPKNKUR3495-01-28 14:26:00 Test Item Value Reference Range Interpretation Comments Hct (test code = Hct) 37.9 36.0-48.0 [facility] ClubMhvuqrxFRDPBTDFOV9252-97-20 14:26:00 Test Item Value Reference Range Interpretation Comments RBC (test code = RBC) 3.73 4.20-5.40 [facility] ClubAdwciyoSDLUPMNOWQ0187-55-17 14:26:00 Test Item Value Reference Range Interpretation Comments WBC (test code = WBC) 6.1 3.7-10.4 [facility] ClubBmwrvkcKFPMKHLDDH1055-98-09 14:26:00 Test Item Value Reference Range Interpretation Comments MPV (test code = MPV) 8.0 7.4-10.4 [facility] ClubIrpgmxzDRRNKPJXNR2702-50-27 14:26:00 Test Item Value Reference Range Interpretation Comments RDW (test code = RDW) 17.2 11.5-14.5 [facility] ClubMsyfgpkNOLJBPZRSQ5854-46-40 14:26:00 Test Item Value Reference Range Interpretation Comments Platelet (test code = Platelet) 223 133-450 [facility] ClubYlcmxljXHQZPYWKOQ4022-15-63 14:26:00 Test Item Value Reference Range Interpretation Comments MCHC (test code = MCHC) 35.0 32.0-36.0 [facility] ClubFkumwbtHPRKIKBYFC5464-77-51 14:26:00 Test Item Value Reference Range Interpretation Comments INR (test code = INR) 0.93 0.85-1.17 [facility] ClubMcmzsdmQLHVROKJCA2897-72-92 14:26:00 Test Item Value Reference Range Interpretation Comments PT (test code = PT) 12.4 s 12.0-14.7 [facility]2014-09-22 14:26:00 Test Item Value Reference Range Interpretation Comments BUN (test code = BUN) 8 7-22 [facility]2014-09-22 14:26:00 Test Item Value Reference Range Interpretation Comments Glucose Lvl (test code = Glucose Lvl) 91 70-99 [facility]2014-09-22 14:26:00 Test Item Value Reference Range Interpretation Comments CO2 (test code = CO2) 29 24-32 [facility]2014-09-22 14:26:00 Test Item Value Reference Range Interpretation Comments AGAP (test code = AGAP) 6.7 10.0-20.0 [facility]2014-09-22 14:26:00 Test Item Value Reference Range Interpretation Comments eGFR (test code = eGFR) 86 [facility]2014-09-22 14:26:00 Test Item Value Reference Range Interpretation Comments Creatinine Lvl (test code = Creatinine 0.8 0.5-1.4 Lvl) [facility]2014-09-22 14:26:00 Test Item Value Reference Range Interpretation Comments Chloride Lvl (test code = Chloride Lvl) 104 95-109 [facility]2014-09-22 14:26:00 Test Item Value Reference Range Interpretation Comments Potassium Lvl (test code = Potassium 3.7 3.5-5.1 Lvl) [facility]2014-09-22 14:26:00 Test Item Value Reference Range Interpretation Comments Sodium Lvl (test code = Sodium Lvl) 136 135-145 [facility]2014-09-22 14:26:00 Test Item Value Reference Range Interpretation Comments Calcium Lvl (test code = Calcium Lvl) 9.7 8.5-10.5 [facility] ClubIxuzigwCTFETXBVJK0993-80-37 14:26:00 Test Item Value Reference Range Interpretation Comments MCV (test code = MCV) 101.6 80.0-98.0 [facility] ClubChxpswvXSGXUXKSWJ6907-29-53 14:26:00 Test Item Value Reference Range Interpretation Comments MCH (test code = MCH) 35.5 pg 27.0-31.0 [facility] ClubAmgeeklKPYDSMRBHX7795-67-28 14:26:00 Test Item Value Reference Range Interpretation Comments Hgb (test code = Hgb) 13.3 12.0-16.0 [facility] ClubFvxmfdhWNXRFQTHXH7960-04-71 14:26:00 Test Item Value Reference Range Interpretation Comments Hct (test code = Hct) 37.9 36.0-48.0 [facility] ClubXokyfrwEPVXAVQCHR7727-16-41 14:26:00 Test Item Value Reference Range Interpretation Comments RBC (test code = RBC) 3.73 4.20-5.40 [facility] ClubNuqpgppALZAXVQWWJ5839-52-42 14:26:00 Test Item Value Reference Range Interpretation Comments WBC (test code = WBC) 6.1 3.7-10.4 [facility] ClubEkzgqecRGIIXBMIYO8593-62-31 14:26:00 Test Item Value Reference Range Interpretation Comments MPV (test code = MPV) 8.0 7.4-10.4 [facility] ClubDgpawkjHBMEJLTYVV9208-57-78 14:26:00 Test Item Value Reference Range Interpretation Comments RDW (test code = RDW) 17.2 11.5-14.5 [facility] ClubEuywueaCALOBXWIIL7885-35-11 14:26:00 Test Item Value Reference Range Interpretation Comments Platelet (test code = Platelet) 223 133-450 [facility] ClubJwivchnSWGGWZCEPT3393-40-77 14:26:00 Test Item Value Reference Range Interpretation Comments MCHC (test code = MCHC) 35.0 32.0-36.0 [facility] ClubUnycxgmZPVAPHYPUW5882-38-80 14:26:00 Test Item Value Reference Range Interpretation Comments INR (test code = INR) 0.93 0.85-1.17 [facility] ClubNqqoingMYORFYSCLX1580-05-02 14:26:00 Test Item Value Reference Range Interpretation Comments PT (test code = PT) 12.4 s 12.0-14.7 [facility]2014-09-22 14:26:00 Test Item Value Reference Range Interpretation Comments BUN (test code = BUN) 8 7-22 [facility]2014-09-22 14:26:00 Test Item Value Reference Range Interpretation Comments Glucose Lvl (test code = Glucose Lvl) 91 70-99 [facility]2014-09-22 14:26:00 Test Item Value Reference Range Interpretation Comments CO2 (test code = CO2) 29 24-32 [facility]2014-09-22 14:26:00 Test Item Value Reference Range Interpretation Comments AGAP (test code = AGAP) 6.7 10.0-20.0 [facility]2014-09-22 14:26:00 Test Item Value Reference Range Interpretation Comments eGFR (test code = eGFR) 86 [facility]2014-09-22 14:26:00 Test Item Value Reference Range Interpretation Comments Creatinine Lvl (test code = Creatinine 0.8 0.5-1.4 Lvl) [facility]2014-09-22 14:26:00 Test Item Value Reference Range Interpretation Comments Chloride Lvl (test code = Chloride Lvl) 104 95-109 [facility]2014-09-22 14:26:00 Test Item Value Reference Range Interpretation Comments Potassium Lvl (test code = Potassium 3.7 3.5-5.1 Lvl) [facility]2014-09-22 14:26:00 Test Item Value Reference Range Interpretation Comments Sodium Lvl (test code = Sodium Lvl) 136 135-145 [facility]2014-09-22 14:26:00 Test Item Value Reference Range Interpretation Comments Calcium Lvl (test code = Calcium Lvl) 9.7 8.5-10.5 [place] 585424-09-22 14:26:00 Test Item Value Reference Range Interpretation Comments MCV (test code = MCV) 101.6 80.0-98.0 [facility] ClubPaiwompQIKGMKUIIU8719-65-90 14:26:00 Test Item Value Reference Range Interpretation Comments MCH (test code = MCH) 35.5 pg 27.0-31.0 [facility] ClubYhmgemkCCGEWRAWHR5481-65-66 14:26:00 Test Item Value Reference Range Interpretation Comments Hgb (test code = Hgb) 13.3 12.0-16.0 [facility] ClubDrqljpfMIAMLVDSVM9953-61-92 14:26:00 Test Item Value Reference Range Interpretation Comments Hct (test code = Hct) 37.9 36.0-48.0 [facility] ClubPipsfsrJXACGAQDFY8666-17-74 14:26:00 Test Item Value Reference Range Interpretation Comments RBC (test code = RBC) 3.73 4.20-5.40 [place] 585424-09-22 14:26:00 Test Item Value Reference Range Interpretation Comments WBC (test code = WBC) 6.1 3.7-10.4 [facility] ClubAekzpagULESVEBHFZ6188-81-45 14:26:00 Test Item Value Reference Range Interpretation Comments MPV (test code = MPV) 8.0 7.4-10.4 [facility] ClubHfbgkcuHWPXDLGZMR9113-21-42 14:26:00 Test Item Value Reference Range Interpretation Comments RDW (test code = RDW) 17.2 11.5-14.5 [facility] ClubHatireoSUJSVMEKCG9411-00-62 14:26:00 Test Item Value Reference Range Interpretation Comments Platelet (test code = Platelet) 223 133-450 [facility] ClubLzbyptrMQPAUTREPR3848-73-10 14:26:00 Test Item Value Reference Range Interpretation Comments MCHC (test code = MCHC) 35.0 32.0-36.0 [facility] ClubCxcocowWWVZRDBXPS7000-66-06 14:26:00 Test Item Value Reference Range Interpretation Comments INR (test code = INR) 0.93 0.85-1.17 [facility] ClubGoqreijJKCQSHAIAA1934-27-11 14:26:00 Test Item Value Reference Range Interpretation Comments PT (test code = PT) 12.4 s 12.0-14.7 [facility]2014-09-22 14:26:00 Test Item Value Reference Range Interpretation Comments BUN (test code = BUN) 8 7-22 [facility]2014-09-22 14:26:00 Test Item Value Reference Range Interpretation Comments Glucose Lvl (test code = Glucose Lvl) 91 70-99 [facility]2014-09-22 14:26:00 Test Item Value Reference Range Interpretation Comments CO2 (test code = CO2) 29 24-32 [facility]2014-09-22 14:26:00 Test Item Value Reference Range Interpretation Comments AGAP (test code = AGAP) 6.7 10.0-20.0 [facility]2014-09-22 14:26:00 Test Item Value Reference Range Interpretation Comments eGFR (test code = eGFR) 86 [facility]2014-09-22 14:26:00 Test Item Value Reference Range Interpretation Comments Creatinine Lvl (test code = Creatinine 0.8 0.5-1.4 Lvl) [facility]2014-09-22 14:26:00 Test Item Value Reference Range Interpretation Comments Chloride Lvl (test code = Chloride Lvl) 104 95-109 [facility]2014-09-22 14:26:00 Test Item Value Reference Range Interpretation Comments Potassium Lvl (test code = Potassium 3.7 3.5-5.1 Lvl) [facility]2014-09-22 14:26:00 Test Item Value Reference Range Interpretation Comments Sodium Lvl (test code = Sodium Lvl) 136 135-145 [facility]2014-09-22 14:26:00 Test Item Value Reference Range Interpretation Comments Calcium Lvl (test code = Calcium Lvl) 9.7 8.5-10.5 [facility] ClubKpvtjnpESBAHVLPBY3402-27-70 14:26:00 Test Item Value Reference Range Interpretation Comments MCV (test code = MCV) 101.6 80.0-98.0 [facility] ClubKyszdkvDMYGDTKBQE6197-43-11 14:26:00 Test Item Value Reference Range Interpretation Comments MCH (test code = MCH) 35.5 pg 27.0-31.0 [facility] ClubAhgrocfAWTBDROOCO8784-47-52 14:26:00 Test Item Value Reference Range Interpretation Comments Hgb (test code = Hgb) 13.3 12.0-16.0 [facility] ClubVyjgffoQONKCRYUPR9571-26-61 14:26:00 Test Item Value Reference Range Interpretation Comments Hct (test code = Hct) 37.9 36.0-48.0 [facility] ClubUzjtaoeNNNRNHMBEY2090-32-00 14:26:00 Test Item Value Reference Range Interpretation Comments RBC (test code = RBC) 3.73 4.20-5.40 [facility] ClubYzgslmdNIAMYPYIHA2599-84-16 14:26:00 Test Item Value Reference Range Interpretation Comments WBC (test code = WBC) 6.1 3.7-10.4 [facility] ClubCirtwaaSIMWWCEKXG4040-64-66 14:26:00 Test Item Value Reference Range Interpretation Comments MPV (test code = MPV) 8.0 7.4-10.4 [facility] ClubEwpsdeqIQLVGWONVM9550-73-52 14:26:00 Test Item Value Reference Range Interpretation Comments RDW (test code = RDW) 17.2 11.5-14.5 [facility] ClubVxlfpwnHICUXHGOAA4234-35-63 14:26:00 Test Item Value Reference Range Interpretation Comments Platelet (test code = Platelet) 223 133-450 [facility] ClubQsghvahAPLXQHOPRX1512-89-72 14:26:00 Test Item Value Reference Range Interpretation Comments MCHC (test code = MCHC) 35.0 32.0-36.0 [facility] ClubAwiqwnpOLNIDRGUIJ2821-16-09 14:26:00 Test Item Value Reference Range Interpretation Comments INR (test code = INR) 0.93 0.85-1.17 [facility] ClubOagsvviKJHWFTOVBU3075-80-84 14:26:00 Test Item Value Reference Range Interpretation Comments PT (test code = PT) 12.4 s 12.0-14.7 [facility]2014-09-22 14:26:00 Test Item Value Reference Range Interpretation Comments BUN (test code = BUN) 8 - [facility]2014-09-22 14:26:00 Test Item Value Reference Range Interpretation Comments Glucose Lvl (test code = Glucose Lvl) 91 70-99 [facility] [place]2014-09-22 14:26:00 Test Item Value Reference Range Interpretation Comments CO2 (test code = CO2) 29 24-32 [facility] [place]2014-09-22 14:26:00 Test Item Value Reference Range Interpretation Comments AGAP (test code = AGAP) 6.7 10.0-20.0 [facility]2014-09-22 14:26:00 Test Item Value Reference Range Interpretation Comments eGFR (test code = eGFR) 86 [facility]2014-09-22 14:26:00 Test Item Value Reference Range Interpretation Comments Creatinine Lvl (test code = Creatinine 0.8 0.5-1.4 Lvl) [facility]2014-09-22 14:26:00 Test Item Value Reference Range Interpretation Comments Chloride Lvl (test code = Chloride Lvl) 104 95-109 [facility]2014-09-22 14:26:00 Test Item Value Reference Range Interpretation Comments Potassium Lvl (test code = Potassium 3.7 3.5-5.1 Lvl) [facility]2014-09-22 14:26:00 Test Item Value Reference Range Interpretation Comments Sodium Lvl (test code = Sodium Lvl) 136 135-145 [facility]2014-09-22 14:26:00 Test Item Value Reference Range Interpretation Comments Calcium Lvl (test code = Calcium Lvl) 9.7 8.5-10.5 [facility] ClubJqztxgqRLRRKHNDBN1582-35-55 14:26:00 Test Item Value Reference Range Interpretation Comments MCV (test code = MCV) 101.6 80.0-98.0 [facility] ClubMerlsjzKANASOQTZE0146-98-20 14:26:00 Test Item Value Reference Range Interpretation Comments MCH (test code = MCH) 35.5 pg 27.0-31.0 [facility] ClubSwovnrgHLFTIUIULO9482-79-07 14:26:00 Test Item Value Reference Range Interpretation Comments Hgb (test code = Hgb) 13.3 12.0-16.0 [facility] ClubTojkpjgOWMOBACCWS1966-48-98 14:26:00 Test Item Value Reference Range Interpretation Comments Hct (test code = Hct) 37.9 36.0-48.0 [facility] ClubWohgdveNHEXSCHOZH4675-44-70 14:26:00 Test Item Value Reference Range Interpretation Comments RBC (test code = RBC) 3.73 4.20-5.40 [facility] ClubIliexjgDXQXLSVXUT9711-64-36 14:26:00 Test Item Value Reference Range Interpretation Comments WBC (test code = WBC) 6.1 3.7-10.4 [facility] ClubHyqalftAOKPFHUPHW5569-06-92 14:26:00 Test Item Value Reference Range Interpretation Comments MPV (test code = MPV) 8.0 7.4-10.4 [facility] ClubYaombyfIVWQSXHSQP5985-12-25 14:26:00 Test Item Value Reference Range Interpretation Comments RDW (test code = RDW) 17.2 11.5-14.5 [facility] ClubLntzmhsNUJJVZRTUF5100-94-55 14:26:00 Test Item Value Reference Range Interpretation Comments Platelet (test code = Platelet) 223 133-450 [facility] ClubLrodpztVNVYDQKRYT8168-57-37 14:26:00 Test Item Value Reference Range Interpretation Comments MCHC (test code = MCHC) 35.0 32.0-36.0 [facility] ClubMizaglcBVKLZXHXYG7297-77-70 14:26:00 Test Item Value Reference Range Interpretation Comments INR (test code = INR) 0.93 0.85-1.17 [facility] ClubCttipocIPSQZQYDMN7435-68-72 14:26:00 Test Item Value Reference Range Interpretation Comments PT (test code = PT) 12.4 s 12.0-14.7 [facility]2014-05-07 09:42:00 Test Item Value Reference Range Interpretation Comments eGFR (test code = eGFR) 113 [place] 634184-05-07 09:42:00 Test Item Value Reference Range Interpretation Comments BUN (test code = BUN) 4 7-22 [place] 634184-05-07 09:42:00 Test Item Value Reference Range Interpretation Comments Potassium Lvl (test code = Potassium 3.8 3.5-5.1 Lvl) [place] 634184-05-07 09:42:00 Test Item Value Reference Range Interpretation Comments Creatinine Lvl (test code = Creatinine 0.5 0.5-1.4 Lvl) [place] [address]-05-07 09:42:00 Test Item Value Reference Range Interpretation Comments Glucose Lvl (test code = Glucose Lvl) 94 70-99 [place] 634184-05-07 09:42:00 Test Item Value Reference Range Interpretation Comments Sodium Lvl (test code = Sodium Lvl) 142 135-145 [place] 634184-05-07 09:42:00 Test Item Value Reference Range Interpretation Comments Calcium Lvl (test code = Calcium Lvl) 8.7 8.5-10.5 [place] 634184-05-07 09:42:00 Test Item Value Reference Range Interpretation Comments Chloride Lvl (test code = Chloride Lvl) 105 95-109 [facility]2014-05-07 09:42:00 Test Item Value Reference Range Interpretation Comments CO2 (test code = CO2) 30 24-32 [place] 634184-05-07 09:42:00 Test Item Value Reference Range Interpretation Comments AGAP (test code = AGAP) 10.8 10.0-20.0 [place] 585424-05-07 09:42:00 Test Item Value Reference Range Interpretation Comments WBC (test code = WBC) 4.4 3.7-10.4 [place] [address]-05-07 09:42:00 Test Item Value Reference Range Interpretation Comments RBC (test code = RBC) 3.80 4.20-5.40 [facility] ClubNcgkskjBXMUQAWNLR1505-85-68 09:42:00 Test Item Value Reference Range Interpretation Comments MCH (test code = MCH) 31.1 pg 27.0-31.0 [place] 585424-05-07 09:42:00 Test Item Value Reference Range Interpretation Comments Hgb (test code = Hgb) 11.8 12.0-16.0 [facility] ClubGptmcrfLWDFURWQCE5119-69-85 09:42:00 Test Item Value Reference Range Interpretation Comments Hct (test code = Hct) 34.5 36.0-48.0 [facility] ClubSiymklsWPAKHPBWGJ1455-32-83 09:42:00 Test Item Value Reference Range Interpretation Comments MCV (test code = MCV) 90.6 81.0-99.0 [facility] ClubKzraegaLOTIALBOYJ9370-88-06 09:42:00 Test Item Value Reference Range Interpretation Comments RDW (test code = RDW) 16.3 11.5-14.5 [facility] ClubCbyxvsgQPFMBEVRHG8102-15-38 09:42:00 Test Item Value Reference Range Interpretation Comments MCHC (test code = MCHC) 34.3 32.0-36.0 [facility] ClubCrjkxfeVHFZRCSCMR4756-03-70 09:42:00 Test Item Value Reference Range Interpretation Comments Platelet (test code = Platelet) 167 133-450 [facility] ClubOfxcvexYYWVHHVFEQ8534-85-28 09:42:00 Test Item Value Reference Range Interpretation Comments MPV (test code = MPV) 7.9 7.4-10.4 [facility] ClubNhuzkwgTVDZVZHTWH1607-28-18 09:42:00 Test Item Value Reference Range Interpretation Comments Eosinophils (test code = 1.6 See_Comment [A utomated message] The Eosinophils) system which ge nerated this result tra nsmitted reference range : <=4.0. The reference r jamaica was not used to int erpret this result as normal/abnormal . [facility] ClubObqapqiMTPSECEIHR9461-96-76 09:42:00 Test Item Value Reference Range Interpretation Comments Basophils (test code = 0.2 See_Comment [Aut omated message] The Basophils) system which ge nerated this result tra nsmitted reference range : <=1.0. The reference r jamaica was not used to int erpret this result as normal/abnormal . [facility] ClubLqpsykbNGDBOCZBOG0164-33-17 09:42:00 Test Item Value Reference Range Interpretation Comments Segs-Bands # (test code = Segs-Bands #) 2.6 1.5-8.1 [facility] ClubXcsmegdMVRFERAWWX7650-83-04 09:42:00 Test Item Value Reference Range Interpretation Comments Monocytes (test code = Monocytes) 7.4 2.0-12.0 [facility] ClubKxqnkgqUGNGZVRIFZ1951-93-04 09:42:00 Test Item Value Reference Range Interpretation Comments Lymphocytes # (test code = Lymphocytes 1.3 1.0-5.5 #) [facility] ClubNduhgiwIYRURJNDLC7094-40-89 09:42:00 Test Item Value Reference Range Interpretation Comments Monocytes # (test code 0.3 See_Comment [Aut omated message] The = Monocytes #) system which generated this result tra nsmitted reference range : <=0.8. The reference r jamaica was not used to int erpret this result as normal/abnormal . [facility] ClubTybpmhxJSLXJSUENP3418-42-88 09:42:00 Test Item Value Reference Range Interpretation Comments Eosinophils # (test code 0.1 See_Comment [A utomated message] The = Eosinophils #) system whic h generated this result tra nsmitted reference range : <=0.5. The reference r jamaica was not used to int erpret this result as normal/abnormal . [facility] ClubFpeuuurVUABARXURG4243-22-25 09:42:00 Test Item Value Reference Range Interpretation Comments Basophils # (test code 0.0 See_Comment [Aut omated message] The = Basophils #) system which generated this result tra nsmitted reference range : <=0.2. The reference r jamaica was not used to int erpret this result as normal/abnormal . [facility] ClubVbqfwrfREDTALEVIH4507-37-14 09:42:00 Test Item Value Reference Range Interpretation Comments Lymphocytes (test code = Lymphocytes) 30.7 20.0-40.0 [facility] ClubOnhbrrnFJSQPEWNFP7191-43-59 09:42:00 Test Item Value Reference Range Interpretation Comments Segs (test code = Segs) 60.1 45.0-75.0 [facility]2014-05-07 09:42:00 Test Item Value Reference Range Interpretation Comments Magnesium Lvl (test code = Magnesium 2.0 1.8-2.4 Lvl) [facility]2014-05-07 09:42:00 Test Item Value Reference Range Interpretation Comments eGFR (test code = eGFR) 113 [facility]2014-05-07 09:42:00 Test Item Value Reference Range Interpretation Comments BUN (test code = BUN) 4 7-22 [facility]2014-05-07 09:42:00 Test Item Value Reference Range Interpretation Comments Potassium Lvl (test code = Potassium 3.8 3.5-5.1 Lvl) [facility]2014-05-07 09:42:00 Test Item Value Reference Range Interpretation Comments Creatinine Lvl (test code = Creatinine 0.5 0.5-1.4 Lvl) [facility]2014-05-07 09:42:00 Test Item Value Reference Range Interpretation Comments Glucose Lvl (test code = Glucose Lvl) 94 70-99 [facility]2014-05-07 09:42:00 Test Item Value Reference Range Interpretation Comments Sodium Lvl (test code = Sodium Lvl) 142 135-145 [facility]2014-05-07 09:42:00 Test Item Value Reference Range Interpretation Comments Calcium Lvl (test code = Calcium Lvl) 8.7 8.5-10.5 [facility]2014-05-07 09:42:00 Test Item Value Reference Range Interpretation Comments Chloride Lvl (test code = Chloride Lvl) 105 95-109 [facility]2014-05-07 09:42:00 Test Item Value Reference Range Interpretation Comments CO2 (test code = CO2) 30 24-32 [place] 634184-05-07 09:42:00 Test Item Value Reference Range Interpretation Comments AGAP (test code = AGAP) 10.8 10.0-20.0 [place] 585424-05-07 09:42:00 Test Item Value Reference Range Interpretation Comments WBC (test code = WBC) 4.4 3.7-10.4 [place] 585424-05-07 09:42:00 Test Item Value Reference Range Interpretation Comments RBC (test code = RBC) 3.80 4.20-5.40 [facility] ClubJljbhjyICWJIOMOQJ4941-61-56 09:42:00 Test Item Value Reference Range Interpretation Comments MCH (test code = MCH) 31.1 pg 27.0-31.0 [facility] ClubXivozolQFMMXAJISA6279-84-87 09:42:00 Test Item Value Reference Range Interpretation Comments Hgb (test code = Hgb) 11.8 12.0-16.0 [place] [address]-05-07 09:42:00 Test Item Value Reference Range Interpretation Comments Hct (test code = Hct) 34.5 36.0-48.0 [facility] ClubZqmsiwkZFZVXUYVAA9324-84-15 09:42:00 Test Item Value Reference Range Interpretation Comments MCV (test code = MCV) 90.6 81.0-99.0 [facility] ClubYxsohhlMNQTKNRQAY4228-27-57 09:42:00 Test Item Value Reference Range Interpretation Comments RDW (test code = RDW) 16.3 11.5-14.5 [facility] ClubRhxxbukLUIRFTRVTV3977-63-51 09:42:00 Test Item Value Reference Range Interpretation Comments MCHC (test code = MCHC) 34.3 32.0-36.0 [facility] ClubWlppkkzVMXHEUPHIH2067-98-11 09:42:00 Test Item Value Reference Range Interpretation Comments Platelet (test code = Platelet) 167 133-450 [facility] ClubIyawlzgYJZJJUKBDT9620-76-13 09:42:00 Test Item Value Reference Range Interpretation Comments MPV (test code = MPV) 7.9 7.4-10.4 [facility] ClubWdgmrlgKGXSHAMBWB8165-09-19 09:42:00 Test Item Value Reference Range Interpretation Comments Eosinophils (test code = 1.6 See_Comment [A utomated message] The Eosinophils) system which ge nerated this result tra nsmitted reference range : <=4.0. The reference r j[place] was not used to int erpret this result as normal/abnormal . [facility] ClubMomjbjuTPVXSUNTHP0112-20-67 09:42:00 Test Item Value Reference Range Interpretation Comments Basophils (test code = 0.2 See_Comment [Aut omated message] The Basophils) system which ge nerated this result tra nsmitted reference range : <=1.0. The reference r j[place]ica was not used to int erpret this result as normal/abnormal . [facility] ClubIzjldeyHOUGKIQWUR0488-06-37 09:42:00 Test Item Value Reference Range Interpretation Comments Segs-Bands # (test code = Segs-Bands #) 2.6 1.5-8.1 [facility] ClubYbscijgCLOKUCRSPF2553-85-02 09:42:00 Test Item Value Reference Range Interpretation Comments Monocytes (test code = Monocytes) 7.4 2.0-12.0 [facility] ClubSdoucdtYLYWLGNJWM7961-79-49 09:42:00 Test Item Value Reference Range Interpretation Comments Lymphocytes # (test code = Lymphocytes 1.3 1.0-5.5 #) [place] [address]-05-07 09:42:00 Test Item Value Reference Range Interpretation Comments Monocytes # (test code 0.3 See_Comment [Aut omated message] The = Monocytes #) system which generated this result tra nsmitted reference range : <=0.8. The reference r jamaica was not used to int erpret this result as normal/abnormal . [facility] ClubTzfuklgGAKVMETISI7568-28-98 09:42:00 Test Item Value Reference Range Interpretation Comments Eosinophils # (test code 0.1 See_Comment [A utomated message] The = Eosinophils #) system whic h generated this result tra nsmitted reference range : <=0.5. The reference r jamaica was not used to int erpret this result as normal/abnormal . [facility] ClubWhfpzspIETOFMGZNF2959-13-03 09:42:00 Test Item Value Reference Range Interpretation Comments Basophils # (test code 0.0 See_Comment [Aut omated message] The = Basophils #) system which generated this result tra nsmitted reference range : <=0.2. The reference r jamaica was not used to int erpret this result as normal/abnormal . [facility] ClubPgkgbjeTRXJANONHE3420-65-10 09:42:00 Test Item Value Reference Range Interpretation Comments Lymphocytes (test code = Lymphocytes) 30.7 20.0-40.0 [place] 585424-05-07 09:42:00 Test Item Value Reference Range Interpretation Comments Segs (test code = Segs) 60.1 45.0-75.0 [facility]2014-05-07 09:42:00 Test Item Value Reference Range Interpretation Comments Magnesium Lvl (test code = Magnesium 2.0 1.8-2.4 Lvl) [facility]2014-05-07 09:42:00 Test Item Value Reference Range Interpretation Comments eGFR (test code = eGFR) 113 [facility]2014-05-07 09:42:00 Test Item Value Reference Range Interpretation Comments BUN (test code = BUN) 4 7-22 [place] [address]-05-07 09:42:00 Test Item Value Reference Range Interpretation Comments Potassium Lvl (test code = Potassium 3.8 3.5-5.1 Lvl) [facility]2014-05-07 09:42:00 Test Item Value Reference Range Interpretation Comments Creatinine Lvl (test code = Creatinine 0.5 0.5-1.4 Lvl) [facility]2014-05-07 09:42:00 Test Item Value Reference Range Interpretation Comments Glucose Lvl (test code = Glucose Lvl) 94 70-99 [place] 634184-05-07 09:42:00 Test Item Value Reference Range Interpretation Comments Sodium Lvl (test code = Sodium Lvl) 142 135-145 [place] 634184-05-07 09:42:00 Test Item Value Reference Range Interpretation Comments Calcium Lvl (test code = Calcium Lvl) 8.7 8.5-10.5 [place] 634184-05-07 09:42:00 Test Item Value Reference Range Interpretation Comments Chloride Lvl (test code = Chloride Lvl) 105 95-109 [place] 634184-05-07 09:42:00 Test Item Value Reference Range Interpretation Comments CO2 (test code = CO2) 30 24-32 [facility]2014-05-07 09:42:00 Test Item Value Reference Range Interpretation Comments AGAP (test code = AGAP) 10.8 10.0-20.0 [facility] ClubKonybjnHSTYBGOKFU6193-45-07 09:42:00 Test Item Value Reference Range Interpretation Comments WBC (test code = WBC) 4.4 3.7-10.4 [facility] ClubWdhsgxfFNMPWMNETQ5727-46-91 09:42:00 Test Item Value Reference Range Interpretation Comments RBC (test code = RBC) 3.80 4.20-5.40 [facility] ClubYyasdvpWHAVJREDSY5709-93-78 09:42:00 Test Item Value Reference Range Interpretation Comments MCH (test code = MCH) 31.1 pg 27.0-31.0 [place] 585424-05-07 09:42:00 Test Item Value Reference Range Interpretation Comments Hgb (test code = Hgb) 11.8 12.0-16.0 [place] [address]-05-07 09:42:00 Test Item Value Reference Range Interpretation Comments Hct (test code = Hct) 34.5 36.0-48.0 [place] [address]-05-07 09:42:00 Test Item Value Reference Range Interpretation Comments MCV (test code = MCV) 90.6 81.0-99.0 [facility] ClubWiemztaIFQEOUXZSN8895-08-46 09:42:00 Test Item Value Reference Range Interpretation Comments RDW (test code = RDW) 16.3 11.5-14.5 [facility] ClubBmplkmkQTAJEMETCO7759-14-72 09:42:00 Test Item Value Reference Range Interpretation Comments MCHC (test code = MCHC) 34.3 32.0-36.0 [facility] ClubUqaeckeZCKWKHNEQN3162-32-17 09:42:00 Test Item Value Reference Range Interpretation Comments Platelet (test code = Platelet) 167 133-450 [facility] ClubRbkbmdyHKIQYFASNF4858-05-36 09:42:00 Test Item Value Reference Range Interpretation Comments MPV (test code = MPV) 7.9 7.4-10.4 [facility] ClubPmdrtosGKGVEPNAYM1597-58-10 09:42:00 Test Item Value Reference Range Interpretation Comments Eosinophils (test code = 1.6 See_Comment [A utomated message] The Eosinophils) system which ge nerated this result tra nsmitted reference range : <=4.0. The reference r jamaica was not used to int erpret this result as normal/abnormal . [facility] ClubBvivkhvFKNOHCXSFH9735-12-81 09:42:00 Test Item Value Reference Range Interpretation Comments Basophils (test code = 0.2 See_Comment [Aut omated message] The Basophils) system which ge nerated this result tra nsmitted reference range : <=1.0. The reference r jamaica was not used to int erpret this result as normal/abnormal . [facility] ClubWtdgorlAMEHXZWGEA5096-14-95 09:42:00 Test Item Value Reference Range Interpretation Comments Segs-Bands # (test code = Segs-Bands #) 2.6 1.5-8.1 [facility] ClubFyqdzewPVBFBGGJUI1044-35-91 09:42:00 Test Item Value Reference Range Interpretation Comments Monocytes (test code = Monocytes) 7.4 2.0-12.0 [facility] ClubIesxrapXMDRTDIXYL3257-36-09 09:42:00 Test Item Value Reference Range Interpretation Comments Lymphocytes # (test code = Lymphocytes 1.3 1.0-5.5 #) [facility] ClubRjlghngRJZURFXDLS4109-46-01 09:42:00 Test Item Value Reference Range Interpretation Comments Monocytes # (test code 0.3 See_Comment [Aut omated message] The = Monocytes #) system which generated this result tra nsmitted reference range : <=0.8. The reference r j[place] was not used to int erpret this result as normal/abnormal . [facility] ClubHafwkfhJEAQOOKDUN0698-48-01 09:42:00 Test Item Value Reference Range Interpretation Comments Eosinophils # (test code 0.1 See_Comment [A utomated message] The = Eosinophils #) system whic h generated this result tra nsmitted reference range : <=0.5. The reference r jamaica was not used to int erpret this result as normal/abnormal . [facility] ClubRaqfixhKOSKGBDMUG7533-87-92 09:42:00 Test Item Value Reference Range Interpretation Comments Basophils # (test code 0.0 See_Comment [Aut omated message] The = Basophils #) system which generated this result tra nsmitted reference range : <=0.2. The reference r jamaica was not used to int erpret this result as normal/abnormal . [facility] ClubNzghuuuBHLAEOWKZT5660-39-99 09:42:00 Test Item Value Reference Range Interpretation Comments Lymphocytes (test code = Lymphocytes) 30.7 20.0-40.0 [place] [address]-05-07 09:42:00 Test Item Value Reference Range Interpretation Comments Segs (test code = Segs) 60.1 45.0-75.0 [facility]2014-05-07 09:42:00 Test Item Value Reference Range Interpretation Comments Magnesium Lvl (test code = Magnesium 2.0 1.8-2.4 Lvl) [facility]2014-05-07 09:42:00 Test Item Value Reference Range Interpretation Comments eGFR (test code = eGFR) 113 [facility]2014-05-07 09:42:00 Test Item Value Reference Range Interpretation Comments BUN (test code = BUN) 4 7-22 [facility]2014-05-07 09:42:00 Test Item Value Reference Range Interpretation Comments Potassium Lvl (test code = Potassium 3.8 3.5-5.1 Lvl) [facility]2014-05-07 09:42:00 Test Item Value Reference Range Interpretation Comments Creatinine Lvl (test code = Creatinine 0.5 0.5-1.4 Lvl) [facility]2014-05-07 09:42:00 Test Item Value Reference Range Interpretation Comments Glucose Lvl (test code = Glucose Lvl) 94 70-99 [facility]2014-05-07 09:42:00 Test Item Value Reference Range Interpretation Comments Sodium Lvl (test code = Sodium Lvl) 142 135-145 [place] 634184-05-07 09:42:00 Test Item Value Reference Range Interpretation Comments Calcium Lvl (test code = Calcium Lvl) 8.7 8.5-10.5 [facility]2014-05-07 09:42:00 Test Item Value Reference Range Interpretation Comments Chloride Lvl (test code = Chloride Lvl) 105 95-109 [facility]2014-05-07 09:42:00 Test Item Value Reference Range Interpretation Comments CO2 (test code = CO2) 30 24-32 [facility]2014-05-07 09:42:00 Test Item Value Reference Range Interpretation Comments AGAP (test code = AGAP) 10.8 10.0-20.0 [facility] ClubBzpmlpbZKZRYDURKR0362-63-48 09:42:00 Test Item Value Reference Range Interpretation Comments WBC (test code = WBC) 4.4 3.7-10.4 [facility] ClubUmtfsbkBZQUWIHWSX3897-65-73 09:42:00 Test Item Value Reference Range Interpretation Comments RBC (test code = RBC) 3.80 4.20-5.40 [facility] ClubGmxxgpuALKHQAMVEA0442-41-72 09:42:00 Test Item Value Reference Range Interpretation Comments MCH (test code = MCH) 31.1 pg 27.0-31.0 [facility] ClubTdtlfcfLMOQDJOVZM7506-42-04 09:42:00 Test Item Value Reference Range Interpretation Comments Hgb (test code = Hgb) 11.8 12.0-16.0 [place] [address]-05-07 09:42:00 Test Item Value Reference Range Interpretation Comments Hct (test code = Hct) 34.5 36.0-48.0 [facility] ClubVdkdbqyRJXNDGDLMH6588-51-45 09:42:00 Test Item Value Reference Range Interpretation Comments MCV (test code = MCV) 90.6 81.0-99.0 [place] 585424-05-07 09:42:00 Test Item Value Reference Range Interpretation Comments RDW (test code = RDW) 16.3 11.5-14.5 [facility] ClubKswteqiZGRYNEXQON4819-75-55 09:42:00 Test Item Value Reference Range Interpretation Comments MCHC (test code = MCHC) 34.3 32.0-36.0 [facility] ClubJrkrqkxMSSVOHLVHW1608-11-41 09:42:00 Test Item Value Reference Range Interpretation Comments Platelet (test code = Platelet) 167 133-450 [facility] ClubJwjlaohQFCSNIDUOF7857-88-62 09:42:00 Test Item Value Reference Range Interpretation Comments MPV (test code = MPV) 7.9 7.4-10.4 [facility] ClubWbfertzDZVDXVZFIE5164-95-89 09:42:00 Test Item Value Reference Range Interpretation Comments Eosinophils (test code = 1.6 See_Comment [A utomated message] The Eosinophils) system which ge nerated this result tra nsmitted reference range : <=4.0. The reference r jamaica was not used to int erpret this result as normal/abnormal . [facility] ClubSlpeaviFPMKNTIMIW8171-25-38 09:42:00 Test Item Value Reference Range Interpretation Comments Basophils (test code = 0.2 See_Comment [Aut omated message] The Basophils) system which ge nerated this result tra nsmitted reference range : <=1.0. The reference r jamaica was not used to int erpret this result as normal/abnormal . [facility] ClubUygzubvLPNRTFKXKG5463-74-61 09:42:00 Test Item Value Reference Range Interpretation Comments Segs-Bands # (test code = Segs-Bands #) 2.6 1.5-8.1 [facility] ClubSxowkreWMZXJARTJV1366-60-73 09:42:00 Test Item Value Reference Range Interpretation Comments Monocytes (test code = Monocytes) 7.4 2.0-12.0 [facility] [facility] ClubRmyzlcjDBGDPZEWAJ7190-89-25 09:42:00 Test Item Value Reference Range Interpretation Comments Lymphocytes # (test code = Lymphocytes 1.3 1.0-5.5 #) [facility] ClubSyxucxpVPOXRSTMKB5307-50-80 09:42:00 Test Item Value Reference Range Interpretation Comments Monocytes # (test code 0.3 See_Comment [Aut omated message] The = Monocytes #) system which generated this result tra nsmitted reference range : <=0.8. The reference r j[place] was not used to int erpret this result as normal/abnormal . [facility] ClubYdmoagrCDYSJJNCGJ0393-43-76 09:42:00 Test Item Value Reference Range Interpretation Comments Eosinophils # (test code 0.1 See_Comment [A utomated message] The = Eosinophils #) system whic h generated this result tra nsmitted reference range : <=0.5. The reference r j[place] was not used to int erpret this result as normal/abnormal . [facility] ClubDcrdszvWUBPSBRMRD7762-49-60 09:42:00 Test Item Value Reference Range Interpretation Comments Basophils # (test code 0.0 See_Comment [Aut omated message] The = Basophils #) system which generated this result tra nsmitted reference range : <=0.2. The reference r jama[place] was not used to int erpret this result as normal/abnormal . [facility] ClubAfieraxVOMPHMISKK2803-17-72 09:42:00 Test Item Value Reference Range Interpretation Comments Lymphocytes (test code = Lymphocytes) 30.7 20.0-40.0 [place] 585424-05-07 09:42:00 Test Item Value Reference Range Interpretation Comments Segs (test code = Segs) 60.1 45.0-75.0 [place] 634184-05-07 09:42:00 Test Item Value Reference Range Interpretation Comments Magnesium Lvl (test code = Magnesium 2.0 1.8-2.4 Lvl) [facility]2014-05-07 09:42:00 Test Item Value Reference Range Interpretation Comments eGFR (test code = eGFR) 113 [place] 634184-05-07 09:42:00 Test Item Value Reference Range Interpretation Comments BUN (test code = BUN) 4 7-22 [place] 634184-05-07 09:42:00 Test Item Value Reference Range Interpretation Comments Potassium Lvl (test code = Potassium 3.8 3.5-5.1 Lvl) [place] 634184-05-07 09:42:00 Test Item Value Reference Range Interpretation Comments Creatinine Lvl (test code = Creatinine 0.5 0.5-1.4 Lvl) [facility]2014-05-07 09:42:00 Test Item Value Reference Range Interpretation Comments Glucose Lvl (test code = Glucose Lvl) 94 70-99 [place] 634184-05-07 09:42:00 Test Item Value Reference Range Interpretation Comments Sodium Lvl (test code = Sodium Lvl) 142 135-145 [facility]2014-05-07 09:42:00 Test Item Value Reference Range Interpretation Comments Calcium Lvl (test code = Calcium Lvl) 8.7 8.5-10.5 [facility]2014-05-07 09:42:00 Test Item Value Reference Range Interpretation Comments Chloride Lvl (test code = Chloride Lvl) 105 95-109 [facility]2014-05-07 09:42:00 Test Item Value Reference Range Interpretation Comments CO2 (test code = CO2) 30 24-32 [facility]2014-05-07 09:42:00 Test Item Value Reference Range Interpretation Comments AGAP (test code = AGAP) 10.8 10.0-20.0 [facility] ClubPeurufuBTXKLBJJIY5041-08-11 09:42:00 Test Item Value Reference Range Interpretation Comments WBC (test code = WBC) 4.4 3.7-10.4 [facility] ClubPppsnnrTELEHXBGXZ3163-34-84 09:42:00 Test Item Value Reference Range Interpretation Comments RBC (test code = RBC) 3.80 4.20-5.40 [facility] ClubUgcncldFXWAZMSEEG7964-84-34 09:42:00 Test Item Value Reference Range Interpretation Comments MCH (test code = MCH) 31.1 pg 27.0-31.0 [facility] ClubIevruibCIDEZIEPEU3596-19-51 09:42:00 Test Item Value Reference Range Interpretation Comments Hgb (test code = Hgb) 11.8 12.0-16.0 [facility] ClubNuhaitmWWSLBZTUSM1870-93-79 09:42:00 Test Item Value Reference Range Interpretation Comments Hct (test code = Hct) 34.5 36.0-48.0 [facility] ClubTzjkxwlESQXFGDWOB7669-25-98 09:42:00 Test Item Value Reference Range Interpretation Comments MCV (test code = MCV) 90.6 81.0-99.0 [facility] ClubDmzliuuGFZHCAWGFT9803-99-13 09:42:00 Test Item Value Reference Range Interpretation Comments RDW (test code = RDW) 16.3 11.5-14.5 [facility] ClubEpjeyruDKUIMDXCFN2168-77-79 09:42:00 Test Item Value Reference Range Interpretation Comments MCHC (test code = MCHC) 34.3 32.0-36.0 [facility] ClubGyxyoorJRISDRNWIW2493-59-66 09:42:00 Test Item Value Reference Range Interpretation Comments Platelet (test code = Platelet) 167 133-450 [facility] ClubBetleupBPPBJBTAIQ5090-03-77 09:42:00 Test Item Value Reference Range Interpretation Comments MPV (test code = MPV) 7.9 7.4-10.4 [facility] ClubZlxfwloSBDGFMAKYE6320-36-22 09:42:00 Test Item Value Reference Range Interpretation Comments Eosinophils (test code = 1.6 See_Comment [A utomated message] The Eosinophils) system which ge nerated this result tra nsmitted reference range : <=4.0. The reference r j[place] was not used to int erpret this result as normal/abnormal . [facility] ClubAxpizyuGSBKMTUEAE8565-11-93 09:42:00 Test Item Value Reference Range Interpretation Comments Basophils (test code = 0.2 See_Comment [Aut omated message] The Basophils) system which ge nerated this result tra nsmitted reference range : <=1.0. The reference r j[place] was not used to int erpret this result as normal/abnormal . [facility] ClubNiatxddRYTZUTIENQ5391-61-03 09:42:00 Test Item Value Reference Range Interpretation Comments Segs-Bands # (test code = Segs-Bands #) 2.6 1.5-8.1 [facility] ClubHhjcklzSDVVEOGRLT7789-54-84 09:42:00 Test Item Value Reference Range Interpretation Comments Monocytes (test code = Monocytes) 7.4 2.0-12.0 [facility] ClubMtdpmypQDODHYAVEV6862-46-08 09:42:00 Test Item Value Reference Range Interpretation Comments Lymphocytes # (test code = Lymphocytes 1.3 1.0-5.5 #) [facility] ClubEhnjouhUMULIKSDJB1462-91-05 09:42:00 Test Item Value Reference Range Interpretation Comments Monocytes # (test code 0.3 See_Comment [Aut omated message] The = Monocytes #) system which generated this result tra nsmitted reference range : <=0.8. The reference r j[place] was not used to int erpret this result as normal/abnormal . [facility] ClubQkzxpqzEALLZUEXXL0706-47-67 09:42:00 Test Item Value Reference Range Interpretation Comments Eosinophils # (test code 0.1 See_Comment [A utomated message] The = Eosinophils #) system whic h generated this result tra nsmitted reference range : <=0.5. The reference r j[place] was not used to int erpret this result as normal/abnormal . [facility] ClubIcfponmQIGVGMUAYV3484-28-52 09:42:00 Test Item Value Reference Range Interpretation Comments Basophils # (test code 0.0 See_Comment [Aut omated message] The = Basophils #) system which generated this result tra nsmitted reference range : <=0.2. The reference r j[place] was not used to int erpret this result as normal/abnormal . [facility] ClubJofvriaPUKBQIQCSJ1448-42-98 09:42:00 Test Item Value Reference Range Interpretation Comments Lymphocytes (test code = Lymphocytes) 30.7 20.0-40.0 [facility] ClubHzziwpgNYKCUADTHC8654-42-13 09:42:00 Test Item Value Reference Range Interpretation Comments Segs (test code = Segs) 60.1 45.0-75.0 [facility]2014-05-07 09:42:00 Test Item Value Reference Range Interpretation Comments Magnesium Lvl (test code = Magnesium 2.0 1.8-2.4 Lvl) [facility]2014-05-07 09:42:00 Test Item Value Reference Range Interpretation Comments eGFR (test code = eGFR) 113 [place] 634184-05-07 09:42:00 Test Item Value Reference Range Interpretation Comments BUN (test code = BUN) 4 7-22 [place] 634184-05-07 09:42:00 Test Item Value Reference Range Interpretation Comments Potassium Lvl (test code = Potassium 3.8 3.5-5.1 Lvl) [place] 634184-05-07 09:42:00 Test Item Value Reference Range Interpretation Comments Creatinine Lvl (test code = Creatinine 0.5 0.5-1.4 Lvl) [facility]2014-05-07 09:42:00 Test Item Value Reference Range Interpretation Comments Glucose Lvl (test code = Glucose Lvl) 94 70-99 [facility]2014-05-07 09:42:00 Test Item Value Reference Range Interpretation Comments Sodium Lvl (test code = Sodium Lvl) 142 135-145 [place] 634184-05-07 09:42:00 Test Item Value Reference Range Interpretation Comments Calcium Lvl (test code = Calcium Lvl) 8.7 8.5-10.5 [facility]2014-05-07 09:42:00 Test Item Value Reference Range Interpretation Comments Chloride Lvl (test code = Chloride Lvl) 105 95-109 [facility]2014-05-07 09:42:00 Test Item Value Reference Range Interpretation Comments CO2 (test code = CO2) 30 24-32 [facility]2014-05-07 09:42:00 Test Item Value Reference Range Interpretation Comments AGAP (test code = AGAP) 10.8 10.0-20.0 [facility] ClubUjqrkluCLDKLMGVHP7842-86-13 09:42:00 Test Item Value Reference Range Interpretation Comments WBC (test code = WBC) 4.4 3.7-10.4 [facility] ClubKzswarcADBCYZJHGY7920-46-53 09:42:00 Test Item Value Reference Range Interpretation Comments RBC (test code = RBC) 3.80 4.20-5.40 [facility] ClubBwclgtkHLMZOWDEDV7920-07-31 09:42:00 Test Item Value Reference Range Interpretation Comments MCH (test code = MCH) 31.1 pg 27.0-31.0 [facility] ClubVzvpehiLWJEFNHPDJ8121-41-38 09:42:00 Test Item Value Reference Range Interpretation Comments Hgb (test code = Hgb) 11.8 12.0-16.0 [facility] ClubTwectazWKPSVGLDKV2065-29-11 09:42:00 Test Item Value Reference Range Interpretation Comments Hct (test code = Hct) 34.5 36.0-48.0 [facility] ClubSukltoxEVYOOOMTFB6807-08-09 09:42:00 Test Item Value Reference Range Interpretation Comments MCV (test code = MCV) 90.6 81.0-99.0 [facility] ClubFgpuwsbILKFJJFDDB2326-30-69 09:42:00 Test Item Value Reference Range Interpretation Comments RDW (test code = RDW) 16.3 11.5-14.5 [facility] ClubRsamluuGVMBQFFOGY1011-89-89 09:42:00 Test Item Value Reference Range Interpretation Comments MCHC (test code = MCHC) 34.3 32.0-36.0 [facility] ClubItcavxgVKIMCDBACU6271-84-16 09:42:00 Test Item Value Reference Range Interpretation Comments Platelet (test code = Platelet) 167 133-450 [facility] ClubUonzmaeOEGBEEMKGS8436-81-86 09:42:00 Test Item Value Reference Range Interpretation Comments MPV (test code = MPV) 7.9 7.4-10.4 [facility] ClubLhhnnbaSNSFDWHJRA0576-12-15 09:42:00 Test Item Value Reference Range Interpretation Comments Eosinophils (test code = 1.6 See_Comment [A utomated message] The Eosinophils) system which ge nerated this result tra nsmitted reference range : <=4.0. The reference r jama[place] was not used to int erpret this result as normal/abnormal . [facility] ClubNcsczdtQHJNIDWFZI2203-92-82 09:42:00 Test Item Value Reference Range Interpretation Comments Basophils (test code = 0.2 See_Comment [Aut omated message] The Basophils) system which ge nerated this result tra nsmitted reference range : <=1.0. The reference r j[place] was not used to int erpret this result as normal/abnormal . [facility] ClubGmmbeelCMBGUKLQWM3772-70-93 09:42:00 Test Item Value Reference Range Interpretation Comments Segs-Bands # (test code = Segs-Bands #) 2.6 1.5-8.1 [facility] ClubDquevqlJJGHMHUDBE2806-29-84 09:42:00 Test Item Value Reference Range Interpretation Comments Monocytes (test code = Monocytes) 7.4 2.0-12.0 [facility] ClubNrygjnpHOTWOCPOKO1452-88-30 09:42:00 Test Item Value Reference Range Interpretation Comments Lymphocytes # (test code = Lymphocytes 1.3 1.0-5.5 #) [facility] ClubNepmtqmBAUSLZVFFH7434-27-11 09:42:00 Test Item Value Reference Range Interpretation Comments Monocytes # (test code 0.3 See_Comment [Aut omated message] The = Monocytes #) system which generated this result tra nsmitted reference range : <=0.8. The reference r j[place]ica was not used to int erpret this result as normal/abnormal . [facility] ClubPnlgothRCVDGNPYMY4301-66-66 09:42:00 Test Item Value Reference Range Interpretation Comments Eosinophils # (test code 0.1 See_Comment [A utomated message] The = Eosinophils #) system whic h generated this result tra nsmitted reference range : <=0.5. The reference r j[place]ica was not used to int erpret this result as normal/abnormal . [facility] ClubSezzqkkKJCLGSEOPL2719-31-06 09:42:00 Test Item Value Reference Range Interpretation Comments Basophils # (test code 0.0 See_Comment [Aut omated message] The = Basophils #) system which generated this result tra nsmitted reference range : <=0.2. The reference r jamaica was not used to int erpret this result as normal/abnormal . [facility] ClubCzumzxlSYNGLRSRJF3668-81-78 09:42:00 Test Item Value Reference Range Interpretation Comments Lymphocytes (test code = Lymphocytes) 30.7 20.0-40.0 [facility] ClubTapbcqnWDLOSXIWAE2488-06-79 09:42:00 Test Item Value Reference Range Interpretation Comments Segs (test code = Segs) 60.1 45.0-75.0 [facility]2014-05-07 09:42:00 Test Item Value Reference Range Interpretation Comments Magnesium Lvl (test code = Magnesium 2.0 1.8-2.4 Lvl) [facility]2014-05-07 09:42:00 Test Item Value Reference Range Interpretation Comments eGFR (test code = eGFR) 113 [facility]2014-05-07 09:42:00 Test Item Value Reference Range Interpretation Comments BUN (test code = BUN) 4 7-22 [facility]2014-05-07 09:42:00 Test Item Value Reference Range Interpretation Comments Potassium Lvl (test code = Potassium 3.8 3.5-5.1 Lvl) [facility]2014-05-07 09:42:00 Test Item Value Reference Range Interpretation Comments Creatinine Lvl (test code = Creatinine 0.5 0.5-1.4 Lvl) [facility]2014-05-07 09:42:00 Test Item Value Reference Range Interpretation Comments Glucose Lvl (test code = Glucose Lvl) 94 70-99 [facility]2014-05-07 09:42:00 Test Item Value Reference Range Interpretation Comments Sodium Lvl (test code = Sodium Lvl) 142 135-145 [facility]2014-05-07 09:42:00 Test Item Value Reference Range Interpretation Comments Calcium Lvl (test code = Calcium Lvl) 8.7 8.5-10.5 [facility]2014-05-07 09:42:00 Test Item Value Reference Range Interpretation Comments Chloride Lvl (test code = Chloride Lvl) 105 95-109 [facility]2014-05-07 09:42:00 Test Item Value Reference Range Interpretation Comments CO2 (test code = CO2) 30 24-32 [facility] MYTOB5913-26-11 09:42:00 Test Item Value Reference Range Interpretation Comments AGAP (test code = AGAP) 10.8 10.0-20.0 [facility] ClubHgjstypBYLBMHKTVF9272-65-36 09:42:00 Test Item Value Reference Range Interpretation Comments WBC (test code = WBC) 4.4 3.7-10.4 [facility] ClubVbnmgbrLMSDCDSOIJ3560-04-96 09:42:00 Test Item Value Reference Range Interpretation Comments RBC (test code = RBC) 3.80 4.20-5.40 [facility] ClubDrlpszjUMQVJNKUHN2726-80-34 09:42:00 Test Item Value Reference Range Interpretation Comments MCH (test code = MCH) 31.1 pg 27.0-31.0 [facility] ClubPyooyyeNJKZWISJHA9718-69-86 09:42:00 Test Item Value Reference Range Interpretation Comments Hgb (test code = Hgb) 11.8 12.0-16.0 [facility] ClubAgyigxyFQECROSTBH8829-70-03 09:42:00 Test Item Value Reference Range Interpretation Comments Hct (test code = Hct) 34.5 36.0-48.0 [facility] ClubMalxbhiYQNLCPRDGK7190-78-86 09:42:00 Test Item Value Reference Range Interpretation Comments MCV (test code = MCV) 90.6 81.0-99.0 [facility] ClubAqnuwtaCOSZUKQEXA6600-59-87 09:42:00 Test Item Value Reference Range Interpretation Comments RDW (test code = RDW) 16.3 11.5-14.5 [facility] ClubGniulckSONCCDMLYG7147-87-03 09:42:00 Test Item Value Reference Range Interpretation Comments MCHC (test code = MCHC) 34.3 32.0-36.0 [facility] ClubBlzagwdSJTJLCHSHD6760-16-90 09:42:00 Test Item Value Reference Range Interpretation Comments Platelet (test code = Platelet) 167 807-450 [facility] ClubNcxhucuWNGLZNBRYO4141-18-86 09:42:00 Test Item Value Reference Range Interpretation Comments MPV (test code = MPV) 7.9 7.4-10.4 [facility] ClubTosiyxcPRYJGRZNND9437-45-36 09:42:00 Test Item Value Reference Range Interpretation Comments Eosinophils (test code = 1.6 See_Comment [A utomated message] The Eosinophils) system which ge nerated this result tra nsmitted reference range : <=4.0. The reference r j[place] was not used to int erpret this result as normal/abnormal . [facility] ClubRaiktmvWQPUICYSKD6598-14-13 09:42:00 Test Item Value Reference Range Interpretation Comments Basophils (test code = 0.2 See_Comment [Aut omated message] The Basophils) system which ge nerated this result tra nsmitted reference range : <=1.0. The reference r jamaica was not used to int erpret this result as normal/abnormal . [facility] ClubGkwlkfyJEFEKTMKQZ1676-73-23 09:42:00 Test Item Value Reference Range Interpretation Comments Segs-Bands # (test code = Segs-Bands #) 2.6 1.5-8.1 [facility] ClubRvpkoisJYFKIYJWJN1598-12-10 09:42:00 Test Item Value Reference Range Interpretation Comments Monocytes (test code = Monocytes) 7.4 2.0-12.0 [facility] ClubWogdzibHJMIVQORMI5744-29-91 09:42:00 Test Item Value Reference Range Interpretation Comments Lymphocytes # (test code = Lymphocytes 1.3 1.0-5.5 #) [facility] ClubPwbrcyuAIKNTSAHWO6839-95-27 09:42:00 Test Item Value Reference Range Interpretation Comments Monocytes # (test code 0.3 See_Comment [Aut omated message] The = Monocytes #) system which generated this result tra nsmitted reference range : <=0.8. The reference r j[place]ica was not used to int erpret this result as normal/abnormal . [facility] ClubJugahjmAMGBTXBSMC6950-75-60 09:42:00 Test Item Value Reference Range Interpretation Comments Eosinophils # (test code 0.1 See_Comment [A utomated message] The = Eosinophils #) system whic h generated this result tra nsmitted reference range : <=0.5. The reference r jamaica was not used to int erpret this result as normal/abnormal . [facility] ClubQlklbvhCABUWNTMEV7272-78-15 09:42:00 Test Item Value Reference Range Interpretation Comments Basophils # (test code 0.0 See_Comment [Aut omated message] The = Basophils #) system which generated this result tra nsmitted reference range : <=0.2. The reference r jamaica was not used to int erpret this result as normal/abnormal . [facility] ClubQbsvoyjDSASWDUVNI2209-55-76 09:42:00 Test Item Value Reference Range Interpretation Comments Lymphocytes (test code = Lymphocytes) 30.7 20.0-40.0 [facility] ClubOijqtjjATEXZSCOWA2142-10-59 09:42:00 Test Item Value Reference Range Interpretation Comments Segs (test code = Segs) 60.1 45.0-75.0 [place] 634184-05-07 09:42:00 Test Item Value Reference Range Interpretation Comments Magnesium Lvl (test code = Magnesium 2.0 1.8-2.4 Lvl) [facility]2014-05-07 09:42:00 Test Item Value Reference Range Interpretation Comments eGFR (test code = eGFR) 113 [facility]2014-05-07 09:42:00 Test Item Value Reference Range Interpretation Comments BUN (test code = BUN) 4 7-22 [facility]2014-05-07 09:42:00 Test Item Value Reference Range Interpretation Comments Potassium Lvl (test code = Potassium 3.8 3.5-5.1 Lvl) [facility]2014-05-07 09:42:00 Test Item Value Reference Range Interpretation Comments Creatinine Lvl (test code = Creatinine 0.5 0.5-1.4 Lvl) [facility]2014-05-07 09:42:00 Test Item Value Reference Range Interpretation Comments Glucose Lvl (test code = Glucose Lvl) 94 70-99 [facility]2014-05-07 09:42:00 Test Item Value Reference Range Interpretation Comments Sodium Lvl (test code = Sodium Lvl) 142 135-145 [facility]2014-05-07 09:42:00 Test Item Value Reference Range Interpretation Comments Calcium Lvl (test code = Calcium Lvl) 8.7 8.5-10.5 [facility]2014-05-07 09:42:00 Test Item Value Reference Range Interpretation Comments Chloride Lvl (test code = Chloride Lvl) 105 95-109 [facility]2014-05-07 09:42:00 Test Item Value Reference Range Interpretation Comments CO2 (test code = CO2) 30 24-32 [place] 634184-05-07 09:42:00 Test Item Value Reference Range Interpretation Comments AGAP (test code = AGAP) 10.8 10.0-20.0 [facility] ClubQoayeqsMWVWMEBQTS6769-36-82 09:42:00 Test Item Value Reference Range Interpretation Comments WBC (test code = WBC) 4.4 3.7-10.4 [facility] ClubOuqyphdHUMTBLASTT7053-36-73 09:42:00 Test Item Value Reference Range Interpretation Comments RBC (test code = RBC) 3.80 4.20-5.40 [facility] ClubJjzulctQCDYMUHNYQ7390-79-42 09:42:00 Test Item Value Reference Range Interpretation Comments MCH (test code = MCH) 31.1 pg 27.0-31.0 [facility] ClubAllydniCFZCKACKBC8104-22-95 09:42:00 Test Item Value Reference Range Interpretation Comments Hgb (test code = Hgb) 11.8 12.0-16.0 [facility] ClubFxetarrMWXCLECVIK5877-67-23 09:42:00 Test Item Value Reference Range Interpretation Comments Hct (test code = Hct) 34.5 36.0-48.0 [facility] ClubRyldqkiADJOUUSSAN2475-91-39 09:42:00 Test Item Value Reference Range Interpretation Comments MCV (test code = MCV) 90.6 81.0-99.0 [facility] ClubKbvpluvHQNSQYDEIG2748-07-96 09:42:00 Test Item Value Reference Range Interpretation Comments RDW (test code = RDW) 16.3 11.5-14.5 [facility] ClubGqoykinUSAAPWRWLQ4642-58-93 09:42:00 Test Item Value Reference Range Interpretation Comments MCHC (test code = MCHC) 34.3 32.0-36.0 [facility] ClubMymsukzLNJTERZXTZ8249-71-82 09:42:00 Test Item Value Reference Range Interpretation Comments Platelet (test code = Platelet) 167 133-450 [facility] ClubTrzgpumGILUGIUGBM7068-72-01 09:42:00 Test Item Value Reference Range Interpretation Comments MPV (test code = MPV) 7.9 7.4-10.4 [facility] ClubZjjberoKZBLXJDNVK5665-74-77 09:42:00 Test Item Value Reference Range Interpretation Comments Eosinophils (test code = 1.6 See_Comment [A utomated message] The Eosinophils) system which ge nerated this result tra nsmitted reference range : <=4.0. The reference r jamaica was not used to int erpret this result as normal/abnormal . [facility] ClubRqjxrqwGOXPWTEUJD9194-28-89 09:42:00 Test Item Value Reference Range Interpretation Comments Basophils (test code = 0.2 See_Comment [Aut omated message] The Basophils) system which ge nerated this result tra nsmitted reference range : <=1.0. The reference r jamaica was not used to int erpret this result as normal/abnormal . [facility] ClubYsmujlnNQMZORLLUZ3799-02-54 09:42:00 Test Item Value Reference Range Interpretation Comments Segs-Bands # (test code = Segs-Bands #) 2.6 1.5-8.1 [facility] ClubAuhowifXAWNMPKQMJ8145-38-36 09:42:00 Test Item Value Reference Range Interpretation Comments Monocytes (test code = Monocytes) 7.4 2.0-12.0 [facility] ClubMgxdvcnGNMHEHJHYG3733-98-15 09:42:00 Test Item Value Reference Range Interpretation Comments Lymphocytes # (test code = Lymphocytes 1.3 1.0-5.5 #) [facility] ClubBqsytomHRXOYWIOGG7134-23-67 09:42:00 Test Item Value Reference Range Interpretation Comments Monocytes # (test code 0.3 See_Comment [Aut omated message] The = Monocytes #) system which generated this result tra nsmitted reference range : <=0.8. The reference r jamaica was not used to int erpret this result as normal/abnormal . [facility] ClubCnrybwrMITGPWMMOV4460-05-21 09:42:00 Test Item Value Reference Range Interpretation Comments Eosinophils # (test code 0.1 See_Comment [A utomated message] The = Eosinophils #) system whic h generated this result tra nsmitted reference range : <=0.5. The reference r jamaica was not used to int erpret this result as normal/abnormal . [facility] ClubLudosfnETPTNOYOIL5205-87-97 09:42:00 Test Item Value Reference Range Interpretation Comments Basophils # (test code 0.0 See_Comment [Aut omated message] The = Basophils #) system which generated this result tra nsmitted reference range : <=0.2. The reference r jamaica was not used to int erpret this result as normal/abnormal . [facility] ClubDltfpoxXDIPSRYFAL8112-32-20 09:42:00 Test Item Value Reference Range Interpretation Comments Lymphocytes (test code = Lymphocytes) 30.7 20.0-40.0 [facility] ClubYhebzymNFOEQAXUPS9143-02-48 09:42:00 Test Item Value Reference Range Interpretation Comments Segs (test code = Segs) 60.1 45.0-75.0 [place] 634184-05-07 09:42:00 Test Item Value Reference Range Interpretation Comments Magnesium Lvl (test code = Magnesium 2.0 1.8-2.4 Lvl) [facility]2014-05-07 09:42:00 Test Item Value Reference Range Interpretation Comments eGFR (test code = eGFR) 113 [facility]2014-05-07 09:42:00 Test Item Value Reference Range Interpretation Comments BUN (test code = BUN) 4 7-22 [facility]2014-05-07 09:42:00 Test Item Value Reference Range Interpretation Comments Potassium Lvl (test code = Potassium 3.8 3.5-5.1 Lvl) [facility]2014-05-07 09:42:00 Test Item Value Reference Range Interpretation Comments Creatinine Lvl (test code = Creatinine 0.5 0.5-1.4 Lvl) [facility]2014-05-07 09:42:00 Test Item Value Reference Range Interpretation Comments Glucose Lvl (test code = Glucose Lvl) 94 70-99 [facility]2014-05-07 09:42:00 Test Item Value Reference Range Interpretation Comments Sodium Lvl (test code = Sodium Lvl) 142 135-145 [facility]2014-05-07 09:42:00 Test Item Value Reference Range Interpretation Comments Calcium Lvl (test code = Calcium Lvl) 8.7 8.5-10.5 [facility]2014-05-07 09:42:00 Test Item Value Reference Range Interpretation Comments Chloride Lvl (test code = Chloride Lvl) 105 95-109 [facility]2014-05-07 09:42:00 Test Item Value Reference Range Interpretation Comments CO2 (test code = CO2) 30 24-32 [facility]2014-05-07 09:42:00 Test Item Value Reference Range Interpretation Comments AGAP (test code = AGAP) 10.8 10.0-20.0 [facility] ClubOaqheicUGHRJOOUTU8087-54-53 09:42:00 Test Item Value Reference Range Interpretation Comments WBC (test code = WBC) 4.4 3.7-10.4 [facility] ClubVaetvrpOYNUQYTVWY9313-12-38 09:42:00 Test Item Value Reference Range Interpretation Comments RBC (test code = RBC) 3.80 4.20-5.40 [facility] ClubRyxtkxcVDSUFHENTI7368-26-21 09:42:00 Test Item Value Reference Range Interpretation Comments MCH (test code = MCH) 31.1 pg 27.0-31.0 [facility] ClubUdbvpyxRGHWZKDDED3296-96-14 09:42:00 Test Item Value Reference Range Interpretation Comments Hgb (test code = Hgb) 11.8 12.0-16.0 [facility] ClubPodgcbnMBXUKYQLDR5820-23-52 09:42:00 Test Item Value Reference Range Interpretation Comments Hct (test code = Hct) 34.5 36.0-48.0 [facility] ClubNftbownDJHFHDEWGR4142-57-63 09:42:00 Test Item Value Reference Range Interpretation Comments MCV (test code = MCV) 90.6 81.0-99.0 [facility] ClubHhfgaguIPMNHVNMIM4752-30-34 09:42:00 Test Item Value Reference Range Interpretation Comments RDW (test code = RDW) 16.3 11.5-14.5 [facility] ClubTqduerhFKVNDYXTRN1565-86-31 09:42:00 Test Item Value Reference Range Interpretation Comments MCHC (test code = MCHC) 34.3 32.0-36.0 [facility] ClubLdadczbIXMIFYAGVR4769-67-05 09:42:00 Test Item Value Reference Range Interpretation Comments Platelet (test code = Platelet) 167 133-450 [facility] ClubTxbgydjEJWIYUEPXT3295-65-19 09:42:00 Test Item Value Reference Range Interpretation Comments MPV (test code = MPV) 7.9 7.4-10.4 [facility] ClubMiivczdJRIUBYKPMI2047-17-64 09:42:00 Test Item Value Reference Range Interpretation Comments Eosinophils (test code = 1.6 See_Comment [A utomated message] The Eosinophils) system which ge nerated this result tra nsmitted reference range : <=4.0. The reference r jamaica was not used to int erpret this result as normal/abnormal . [facility] ClubXgrxhwhBFFFDPYXDV3894-14-50 09:42:00 Test Item Value Reference Range Interpretation Comments Basophils (test code = 0.2 See_Comment [Aut omated message] The Basophils) system which ge nerated this result tra nsmitted reference range : <=1.0. The reference r jamaica was not used to int erpret this result as normal/abnormal . [facility] ClubQkxhaedPVSYZIQOSR4206-27-54 09:42:00 Test Item Value Reference Range Interpretation Comments Segs-Bands # (test code = Segs-Bands #) 2.6 1.5-8.1 [facility] ClubKcobhfgIBIXSCYNXI3450-99-10 09:42:00 Test Item Value Reference Range Interpretation Comments Monocytes (test code = Monocytes) 7.4 2.0-12.0 [facility] ClubRfsysuxASGBAUKSLA0370-36-06 09:42:00 Test Item Value Reference Range Interpretation Comments Lymphocytes # (test code = Lymphocytes 1.3 1.0-5.5 #) [facility] ClubRxwzysnKDQAAWZCIJ0509-03-26 09:42:00 Test Item Value Reference Range Interpretation Comments Monocytes # (test code 0.3 See_Comment [Aut omated message] The = Monocytes #) system which generated this result tra nsmitted reference range : <=0.8. The reference r jamaica was not used to int erpret this result as normal/abnormal . [facility] ClubCyauunjCSJZVJZQPY1529-96-04 09:42:00 Test Item Value Reference Range Interpretation Comments Eosinophils # (test code 0.1 See_Comment [A utomated message] The = Eosinophils #) system whic h generated this result tra nsmitted reference range : <=0.5. The reference r jamaica was not used to int erpret this result as normal/abnormal . [facility] ClubBfshnodSVFUWOGUZD2923-71-28 09:42:00 Test Item Value Reference Range Interpretation Comments Basophils # (test code 0.0 See_Comment [Aut omated message] The = Basophils #) system which generated this result tra nsmitted reference range : <=0.2. The reference r jamaica was not used to int erpret this result as normal/abnormal . [facility] ClubPsbiahbVRWZEYWIMQ2634-37-56 09:42:00 Test Item Value Reference Range Interpretation Comments Lymphocytes (test code = Lymphocytes) 30.7 20.0-40.0 [facility] ClubVmuwdxxCFNYRNYSJH4287-46-54 09:42:00 Test Item Value Reference Range Interpretation Comments Segs (test code = Segs) 60.1 45.0-75.0 [facility]2014-05-07 09:42:00 Test Item Value Reference Range Interpretation Comments Magnesium Lvl (test code = Magnesium 2.0 1.8-2.4 Lvl) [facility]2014-05-07 09:42:00 Test Item Value Reference Range Interpretation Comments eGFR (test code = eGFR) 113 [facility]2014-05-07 09:42:00 Test Item Value Reference Range Interpretation Comments BUN (test code = BUN) 4 7-22 [place] 634184-05-07 09:42:00 Test Item Value Reference Range Interpretation Comments Potassium Lvl (test code = Potassium 3.8 3.5-5.1 Lvl) [facility]2014-05-07 09:42:00 Test Item Value Reference Range Interpretation Comments Creatinine Lvl (test code = Creatinine 0.5 0.5-1.4 Lvl) [facility]2014-05-07 09:42:00 Test Item Value Reference Range Interpretation Comments Glucose Lvl (test code = Glucose Lvl) 94 70-99 [facility]2014-05-07 09:42:00 Test Item Value Reference Range Interpretation Comments Sodium Lvl (test code = Sodium Lvl) 142 135-145 [facility]2014-05-07 09:42:00 Test Item Value Reference Range Interpretation Comments Calcium Lvl (test code = Calcium Lvl) 8.7 8.5-10.5 [facility]2014-05-07 09:42:00 Test Item Value Reference Range Interpretation Comments Chloride Lvl (test code = Chloride Lvl) 105 95-109 [facility]2014-05-07 09:42:00 Test Item Value Reference Range Interpretation Comments CO2 (test code = CO2) 30 24-32 [facility]2014-05-07 09:42:00 Test Item Value Reference Range Interpretation Comments AGAP (test code = AGAP) 10.8 10.0-20.0 [facility] ClubUqmjzbeMHOWRCVBWW3215-49-88 09:42:00 Test Item Value Reference Range Interpretation Comments WBC (test code = WBC) 4.4 3.7-10.4 [facility] ClubVurulznMZBSGOUJJE0234-85-70 09:42:00 Test Item Value Reference Range Interpretation Comments RBC (test code = RBC) 3.80 4.20-5.40 [facility] ClubYlwweiqCOUGPCBLBA6906-77-25 09:42:00 Test Item Value Reference Range Interpretation Comments MCH (test code = MCH) 31.1 pg 27.0-31.0 [facility] ClubCklmjqiQRZLVLVTJP9829-04-25 09:42:00 Test Item Value Reference Range Interpretation Comments Hgb (test code = Hgb) 11.8 12.0-16.0 [facility] ClubGoocqtsAXMVWQAAMV9906-19-70 09:42:00 Test Item Value Reference Range Interpretation Comments Hct (test code = Hct) 34.5 36.0-48.0 [facility] ClubMoaewktAXKXMQSTCT7050-21-34 09:42:00 Test Item Value Reference Range Interpretation Comments MCV (test code = MCV) 90.6 81.0-99.0 [facility] ClubAukcppbTKRUOKGJQB8278-57-71 09:42:00 Test Item Value Reference Range Interpretation Comments RDW (test code = RDW) 16.3 11.5-14.5 [facility] ClubUtchsxaVBLSIVQQSB0500-21-89 09:42:00 Test Item Value Reference Range Interpretation Comments MCHC (test code = MCHC) 34.3 32.0-36.0 [facility] ClubPhoowrwFSLLCYJVQY3025-08-47 09:42:00 Test Item Value Reference Range Interpretation Comments Platelet (test code = Platelet) 167 133-450 [facility] ClubKysqjkvEVYOHAOQVU2315-40-14 09:42:00 Test Item Value Reference Range Interpretation Comments MPV (test code = MPV) 7.9 7.4-10.4 [facility] ClubXidkgpdNNFIIXNMBJ9163-20-56 09:42:00 Test Item Value Reference Range Interpretation Comments Eosinophils (test code = 1.6 See_Comment [A utomated message] The Eosinophils) system which ge nerated this result tra nsmitted reference range : <=4.0. The reference r jamaica was not used to int erpret this result as normal/abnormal . [facility] ClubQffkegbYXURHHVQGF7077-19-66 09:42:00 Test Item Value Reference Range Interpretation Comments Basophils (test code = 0.2 See_Comment [Aut omated message] The Basophils) system which ge nerated this result tra nsmitted reference range : <=1.0. The reference r jamaica was not used to int erpret this result as normal/abnormal . [facility] ClubNyldgegPOQZUMTEFZ9434-60-75 09:42:00 Test Item Value Reference Range Interpretation Comments Segs-Bands # (test code = Segs-Bands #) 2.6 1.5-8.1 [facility] ClubHdcvgkvDUMJJUHXIG5266-35-00 09:42:00 Test Item Value Reference Range Interpretation Comments Monocytes (test code = Monocytes) 7.4 2.0-12.0 [facility] ClubBsdgozbLWXKYFWHCW6137-07-11 09:42:00 Test Item Value Reference Range Interpretation Comments Lymphocytes # (test code = Lymphocytes 1.3 1.0-5.5 #) [facility] ClubJghatbjNICOKMELZD2152-36-62 09:42:00 Test Item Value Reference Range Interpretation Comments Monocytes # (test code 0.3 See_Comment [Aut omated message] The = Monocytes #) system which generated this result tra nsmitted reference range : <=0.8. The reference r jamaica was not used to int erpret this result as normal/abnormal . [facility] ClubVdixqbuXAIZKDHIYJ5590-21-43 09:42:00 Test Item Value Reference Range Interpretation Comments Eosinophils # (test code 0.1 See_Comment [A utomated message] The = Eosinophils #) system whic h generated this result tra nsmitted reference range : <=0.5. The reference r jamaica was not used to int erpret this result as normal/abnormal . [facility] ClubCjfhxedQMVJQLDNBH5100-68-43 09:42:00 Test Item Value Reference Range Interpretation Comments Basophils # (test code 0.0 See_Comment [Aut omated message] The = Basophils #) system which generated this result tra nsmitted reference range : <=0.2. The reference r jamaica was not used to int erpret this result as normal/abnormal . [facility] ClubUmkjopeFZXXFEWNIA0091-04-83 09:42:00 Test Item Value Reference Range Interpretation Comments Lymphocytes (test code = Lymphocytes) 30.7 20.0-40.0 [facility] ClubAbkovcpGZHVVDHZAK5713-14-53 09:42:00 Test Item Value Reference Range Interpretation Comments Segs (test code = Segs) 60.1 45.0-75.0 [facility]2014-05-07 09:42:00 Test Item Value Reference Range Interpretation Comments Magnesium Lvl (test code = Magnesium 2.0 1.8-2.4 Lvl) [facility]2014-05-07 09:42:00 Test Item Value Reference Range Interpretation Comments eGFR (test code = eGFR) 113 [facility]2014-05-07 09:42:00 Test Item Value Reference Range Interpretation Comments BUN (test code = BUN) 4 7-22 [place] [address]-05-07 09:42:00 Test Item Value Reference Range Interpretation Comments Potassium Lvl (test code = Potassium 3.8 3.5-5.1 Lvl) [place] 634184-05-07 09:42:00 Test Item Value Reference Range Interpretation Comments Creatinine Lvl (test code = Creatinine 0.5 0.5-1.4 Lvl) [facility]2014-05-07 09:42:00 Test Item Value Reference Range Interpretation Comments Glucose Lvl (test code = Glucose Lvl) 94 70-99 [facility]2014-05-07 09:42:00 Test Item Value Reference Range Interpretation Comments Sodium Lvl (test code = Sodium Lvl) 142 135-145 [place] 634184-05-07 09:42:00 Test Item Value Reference Range Interpretation Comments Calcium Lvl (test code = Calcium Lvl) 8.7 8.5-10.5 [facility]2014-05-07 09:42:00 Test Item Value Reference Range Interpretation Comments Chloride Lvl (test code = Chloride Lvl) 105 95-109 [facility]2014-05-07 09:42:00 Test Item Value Reference Range Interpretation Comments CO2 (test code = CO2) 30 24-32 [facility]2014-05-07 09:42:00 Test Item Value Reference Range Interpretation Comments AGAP (test code = AGAP) 10.8 10.0-20.0 [facility] ClubNwdovcwCZFULUNKNF1972-86-61 09:42:00 Test Item Value Reference Range Interpretation Comments WBC (test code = WBC) 4.4 3.7-10.4 [place] 585424-05-07 09:42:00 Test Item Value Reference Range Interpretation Comments RBC (test code = RBC) 3.80 4.20-5.40 [place] 585424-05-07 09:42:00 Test Item Value Reference Range Interpretation Comments MCH (test code = MCH) 31.1 pg 27.0-31.0 [facility] ClubIrqnujaLEBKZFKSSG6494-50-73 09:42:00 Test Item Value Reference Range Interpretation Comments Hgb (test code = Hgb) 11.8 12.0-16.0 [facility] ClubLwzikezRMMTJSRUBV5611-45-84 09:42:00 Test Item Value Reference Range Interpretation Comments Hct (test code = Hct) 34.5 36.0-48.0 [facility] ClubFmmxkwnXMSCDLPYVN9765-13-10 09:42:00 Test Item Value Reference Range Interpretation Comments MCV (test code = MCV) 90.6 81.0-99.0 [facility] ClubKovslevRNWJTEGPWB6149-62-32 09:42:00 Test Item Value Reference Range Interpretation Comments RDW (test code = RDW) 16.3 11.5-14.5 [facility] ClubOynrfobQBSERUPUDY2345-65-84 09:42:00 Test Item Value Reference Range Interpretation Comments MCHC (test code = MCHC) 34.3 32.0-36.0 [facility] ClubWgsavmzEWOEHSAASM8376-59-89 09:42:00 Test Item Value Reference Range Interpretation Comments Platelet (test code = Platelet) 167 133-450 [facility] ClubXqpxnxeUACPTIPIFK4967-30-94 09:42:00 Test Item Value Reference Range Interpretation Comments MPV (test code = MPV) 7.9 7.4-10.4 [facility] ClubArhkveyDTZSJKIOZK5072-23-44 09:42:00 Test Item Value Reference Range Interpretation Comments Eosinophils (test code = 1.6 See_Comment [A utomated message] The Eosinophils) system which ge nerated this result tra nsmitted reference range : <=4.0. The reference r jamaica was not used to int erpret this result as normal/abnormal . [facility] ClubKglwoqnLOWTOLLAAH6740-68-39 09:42:00 Test Item Value Reference Range Interpretation Comments Basophils (test code = 0.2 See_Comment [Aut omated message] The Basophils) system which ge nerated this result tra nsmitted reference range : <=1.0. The reference r jamaica was not used to int erpret this result as normal/abnormal . [facility] ClubFhhkjsdTTBYWOFECK6376-13-76 09:42:00 Test Item Value Reference Range Interpretation Comments Segs-Bands # (test code = Segs-Bands #) 2.6 1.5-8.1 [facility] ClubEqisebgWUCXVMNNEU4598-82-78 09:42:00 Test Item Value Reference Range Interpretation Comments Monocytes (test code = Monocytes) 7.4 2.0-12.0 [facility] ClubZsulzmzJGLBJYEFCZ4801-26-84 09:42:00 Test Item Value Reference Range Interpretation Comments Lymphocytes # (test code = Lymphocytes 1.3 1.0-5.5 #) [facility] ClubYidpmesNMJYSQBQKE9388-00-31 09:42:00 Test Item Value Reference Range Interpretation Comments Monocytes # (test code 0.3 See_Comment [Aut omated message] The = Monocytes #) system which generated this result tra nsmitted reference range : <=0.8. The reference r jamaica was not used to int erpret this result as normal/abnormal . [facility] ClubNegzespDGPBEYNPNP9361-36-90 09:42:00 Test Item Value Reference Range Interpretation Comments Eosinophils # (test code 0.1 See_Comment [A utomated message] The = Eosinophils #) system whic h generated this result tra nsmitted reference range : <=0.5. The reference r jamaica was not used to int erpret this result as normal/abnormal . [facility] ClubVmxemnhQLWWQPAXHL5829-84-47 09:42:00 Test Item Value Reference Range Interpretation Comments Basophils # (test code 0.0 See_Comment [Aut omated message] The = Basophils #) system which generated this result tra nsmitted reference range : <=0.2. The reference r jamaica was not used to int erpret this result as normal/abnormal . [facility] ClubAestgwbGLJDTBXRFG8492-82-73 09:42:00 Test Item Value Reference Range Interpretation Comments Lymphocytes (test code = Lymphocytes) 30.7 20.0-40.0 [facility] ClubKnzttwiAGSPTREMTT4882-18-53 09:42:00 Test Item Value Reference Range Interpretation Comments Segs (test code = Segs) 60.1 45.0-75.0 [facility]2014-05-07 09:42:00 Test Item Value Reference Range Interpretation Comments Magnesium Lvl (test code = Magnesium 2.0 1.8-2.4 Lvl) [facility]2014-05-07 09:42:00 Test Item Value Reference Range Interpretation Comments eGFR (test code = eGFR) 113 [facility]2014-05-07 09:42:00 Test Item Value Reference Range Interpretation Comments BUN (test code = BUN) 4 7-22 [place] 634184-05-07 09:42:00 Test Item Value Reference Range Interpretation Comments Potassium Lvl (test code = Potassium 3.8 3.5-5.1 Lvl) [facility]2014-05-07 09:42:00 Test Item Value Reference Range Interpretation Comments Creatinine Lvl (test code = Creatinine 0.5 0.5-1.4 Lvl) [place] [address]-05-07 09:42:00 Test Item Value Reference Range Interpretation Comments Glucose Lvl (test code = Glucose Lvl) 94 70-99 [place] 634184-05-07 09:42:00 Test Item Value Reference Range Interpretation Comments Sodium Lvl (test code = Sodium Lvl) 142 135-145 [place] 634184-05-07 09:42:00 Test Item Value Reference Range Interpretation Comments Calcium Lvl (test code = Calcium Lvl) 8.7 8.5-10.5 [place] 634184-05-07 09:42:00 Test Item Value Reference Range Interpretation Comments Chloride Lvl (test code = Chloride Lvl) 105 95-109 [facility]2014-05-07 09:42:00 Test Item Value Reference Range Interpretation Comments CO2 (test code = CO2) 30 24-32 [facility]2014-05-07 09:42:00 Test Item Value Reference Range Interpretation Comments AGAP (test code = AGAP) 10.8 10.0-20.0 [place] 585424-05-07 09:42:00 Test Item Value Reference Range Interpretation Comments WBC (test code = WBC) 4.4 3.7-10.4 [place] [address]-05-07 09:42:00 Test Item Value Reference Range Interpretation Comments RBC (test code = RBC) 3.80 4.20-5.40 [place] 585424-05-07 09:42:00 Test Item Value Reference Range Interpretation Comments MCH (test code = MCH) 31.1 pg 27.0-31.0 [place] 585424-05-07 09:42:00 Test Item Value Reference Range Interpretation Comments Hgb (test code = Hgb) 11.8 12.0-16.0 [facility] ClubCvvchhpACGAXWLCQR7125-17-78 09:42:00 Test Item Value Reference Range Interpretation Comments Hct (test code = Hct) 34.5 36.0-48.0 [facility] ClubYsgxemxGEWFCHNCKQ4365-26-09 09:42:00 Test Item Value Reference Range Interpretation Comments MCV (test code = MCV) 90.6 81.0-99.0 [facility] ClubHhrceadSSLMRZUAMJ0706-81-28 09:42:00 Test Item Value Reference Range Interpretation Comments RDW (test code = RDW) 16.3 11.5-14.5 [facility] ClubCgfrafkDCFHOTPUJI8021-74-23 09:42:00 Test Item Value Reference Range Interpretation Comments MCHC (test code = MCHC) 34.3 32.0-36.0 [facility] ClubXzowhruHSMLUGKGGG1154-86-74 09:42:00 Test Item Value Reference Range Interpretation Comments Platelet (test code = Platelet) 167 133-450 [facility] ClubLuwhuatXEGVUPXKLO6223-35-41 09:42:00 Test Item Value Reference Range Interpretation Comments MPV (test code = MPV) 7.9 7.4-10.4 [facility] ClubIqlbnkpXCJBAVINIX5138-09-74 09:42:00 Test Item Value Reference Range Interpretation Comments Eosinophils (test code = 1.6 See_Comment [A utomated message] The Eosinophils) system which ge nerated this result tra nsmitted reference range : <=4.0. The reference r jamaica was not used to int erpret this result as normal/abnormal . [facility] ClubSdhkhmoTXHAELBKJP2198-19-77 09:42:00 Test Item Value Reference Range Interpretation Comments Basophils (test code = 0.2 See_Comment [Aut omated message] The Basophils) system which ge nerated this result tra nsmitted reference range : <=1.0. The reference r jamaica was not used to int erpret this result as normal/abnormal . [facility] ClubOabwcowCSNHIZBBVJ8403-96-05 09:42:00 Test Item Value Reference Range Interpretation Comments Segs-Bands # (test code = Segs-Bands #) 2.6 1.5-8.1 [facility] ClubPbpivmsLLQNXQJUUM6751-19-91 09:42:00 Test Item Value Reference Range Interpretation Comments Monocytes (test code = Monocytes) 7.4 2.0-12.0 [facility] ClubWfpehnsQLIWCIROXV2710-98-22 09:42:00 Test Item Value Reference Range Interpretation Comments Lymphocytes # (test code = Lymphocytes 1.3 1.0-5.5 #) [facility] ClubArzhduyUWDOOZCDAQ4441-29-70 09:42:00 Test Item Value Reference Range Interpretation Comments Monocytes # (test code 0.3 See_Comment [Aut omated message] The = Monocytes #) system which generated this result tra nsmitted reference range : <=0.8. The reference r jamaica was not used to int erpret this result as normal/abnormal . [facility] ClubMctelpuGUKWPRAFAR2306-00-24 09:42:00 Test Item Value Reference Range Interpretation Comments Eosinophils # (test code 0.1 See_Comment [A utomated message] The = Eosinophils #) system whic h generated this result tra nsmitted reference range : <=0.5. The reference r jamaica was not used to int erpret this result as normal/abnormal . [facility] ClubLhvvsihEHGADTQDAQ6136-08-71 09:42:00 Test Item Value Reference Range Interpretation Comments Basophils # (test code 0.0 See_Comment [Aut omated message] The = Basophils #) system which generated this result tra nsmitted reference range : <=0.2. The reference r jamaica was not used to int erpret this result as normal/abnormal . [facility] ClubSfapukxRNUGTYSFMQ6513-49-85 09:42:00 Test Item Value Reference Range Interpretation Comments Lymphocytes (test code = Lymphocytes) 30.7 20.0-40.0 [facility] ClubQsfwohmSIRGWXIQKI2374-66-98 09:42:00 Test Item Value Reference Range Interpretation Comments Segs (test code = Segs) 60.1 45.0-75.0 [facility]2014-05-07 09:42:00 Test Item Value Reference Range Interpretation Comments Magnesium Lvl (test code = Magnesium 2.0 1.8-2.4 Lvl) [facility]2014-05-07 09:42:00 Test Item Value Reference Range Interpretation Comments eGFR (test code = eGFR) 113 [facility]2014-05-07 09:42:00 Test Item Value Reference Range Interpretation Comments BUN (test code = BUN) 4 7-22 [facility]2014-05-07 09:42:00 Test Item Value Reference Range Interpretation Comments Potassium Lvl (test code = Potassium 3.8 3.5-5.1 Lvl) [facility]2014-05-07 09:42:00 Test Item Value Reference Range Interpretation Comments Creatinine Lvl (test code = Creatinine 0.5 0.5-1.4 Lvl) [facility]2014-05-07 09:42:00 Test Item Value Reference Range Interpretation Comments Glucose Lvl (test code = Glucose Lvl) 94 70-99 [place] 634184-05-07 09:42:00 Test Item Value Reference Range Interpretation Comments Sodium Lvl (test code = Sodium Lvl) 142 135-145 [place] 634184-05-07 09:42:00 Test Item Value Reference Range Interpretation Comments Calcium Lvl (test code = Calcium Lvl) 8.7 8.5-10.5 [place] 634184-05-07 09:42:00 Test Item Value Reference Range Interpretation Comments Chloride Lvl (test code = Chloride Lvl) 105 95-109 [facility]2014-05-07 09:42:00 Test Item Value Reference Range Interpretation Comments CO2 (test code = CO2) 30 24-32 [place] 634184-05-07 09:42:00 Test Item Value Reference Range Interpretation Comments AGAP (test code = AGAP) 10.8 10.0-20.0 [place] [address]-05-07 09:42:00 Test Item Value Reference Range Interpretation Comments WBC (test code = WBC) 4.4 3.7-10.4 [place] [address]-05-07 09:42:00 Test Item Value Reference Range Interpretation Comments RBC (test code = RBC) 3.80 4.20-5.40 [place] [address]-05-07 09:42:00 Test Item Value Reference Range Interpretation Comments MCH (test code = MCH) 31.1 pg 27.0-31.0 [facility] ClubIvbilzuJGJAGGNTQX7355-24-73 09:42:00 Test Item Value Reference Range Interpretation Comments Hgb (test code = Hgb) 11.8 12.0-16.0 [place] [address]-05-07 09:42:00 Test Item Value Reference Range Interpretation Comments Hct (test code = Hct) 34.5 36.0-48.0 [facility] ClubVozrguvGSPMTJPIGI4512-03-95 09:42:00 Test Item Value Reference Range Interpretation Comments MCV (test code = MCV) 90.6 81.0-99.0 [facility] ClubBonivtcVNLXLQKJTX0315-77-34 09:42:00 Test Item Value Reference Range Interpretation Comments RDW (test code = RDW) 16.3 11.5-14.5 [facility] ClubTtbpgxnCTLVFWUOVB7712-26-48 09:42:00 Test Item Value Reference Range Interpretation Comments MCHC (test code = MCHC) 34.3 32.0-36.0 [facility] ClubOocqsmuQSOZRQJZKY1461-35-48 09:42:00 Test Item Value Reference Range Interpretation Comments Platelet (test code = Platelet) 167 133-450 [facility] ClubNrpthhnPDDNEJJRJI9792-77-30 09:42:00 Test Item Value Reference Range Interpretation Comments MPV (test code = MPV) 7.9 7.4-10.4 [facility] ClubOkhrwsyEADISOIFTS2715-88-88 09:42:00 Test Item Value Reference Range Interpretation Comments Eosinophils (test code = 1.6 See_Comment [A utomated message] The Eosinophils) system which ge nerated this result tra nsmitted reference range : <=4.0. The reference r jamaica was not used to int erpret this result as normal/abnormal . [facility] ClubAbcoroxXXGJGKXKFW7507-21-94 09:42:00 Test Item Value Reference Range Interpretation Comments Basophils (test code = 0.2 See_Comment [Aut omated message] The Basophils) system which ge nerated this result tra nsmitted reference range : <=1.0. The reference r jamaica was not used to int erpret this result as normal/abnormal . [facility] ClubPsnepplUYFHZGCUDD9266-72-11 09:42:00 Test Item Value Reference Range Interpretation Comments Segs-Bands # (test code = Segs-Bands #) 2.6 1.5-8.1 [facility] ClubMmkouqjMPYOKKBNYN8950-22-33 09:42:00 Test Item Value Reference Range Interpretation Comments Monocytes (test code = Monocytes) 7.4 2.0-12.0 [facility] ClubCjjcrpyEIEVGHDUCZ8528-79-71 09:42:00 Test Item Value Reference Range Interpretation Comments Lymphocytes # (test code = Lymphocytes 1.3 1.0-5.5 #) [facility] ClubRndqlmpCXHLALCWSR6197-27-02 09:42:00 Test Item Value Reference Range Interpretation Comments Monocytes # (test code 0.3 See_Comment [Aut omated message] The = Monocytes #) system which generated this result tra nsmitted reference range : <=0.8. The reference r j[place]ica was not used to int erpret this result as normal/abnormal . [facility] ClubMmtfgkdVGDDNFLOJD2846-50-68 09:42:00 Test Item Value Reference Range Interpretation Comments Eosinophils # (test code 0.1 See_Comment [A utomated message] The = Eosinophils #) system whic h generated this result tra nsmitted reference range : <=0.5. The reference r jamaica was not used to int erpret this result as normal/abnormal . [facility] ClubAaionqeNNPWYDEMFC4952-78-77 09:42:00 Test Item Value Reference Range Interpretation Comments Basophils # (test code 0.0 See_Comment [Aut omated message] The = Basophils #) system which generated this result tra nsmitted reference range : <=0.2. The reference r jamaica was not used to int erpret this result as normal/abnormal . [facility] ClubDposuwbKVNHFXKJBN9845-75-27 09:42:00 Test Item Value Reference Range Interpretation Comments Lymphocytes (test code = Lymphocytes) 30.7 20.0-40.0 [facility] ClubTndvplaBKNHIWYWHE0920-17-98 09:42:00 Test Item Value Reference Range Interpretation Comments Segs (test code = Segs) 60.1 45.0-75.0 [facility]2014-05-07 09:42:00 Test Item Value Reference Range Interpretation Comments Magnesium Lvl (test code = Magnesium 2.0 1.8-2.4 Lvl) [facility]2014-05-07 09:42:00 Test Item Value Reference Range Interpretation Comments eGFR (test code = eGFR) 113 [facility]2014-05-07 09:42:00 Test Item Value Reference Range Interpretation Comments BUN (test code = BUN) 4 7-22 [place] 634184-05-07 09:42:00 Test Item Value Reference Range Interpretation Comments Potassium Lvl (test code = Potassium 3.8 3.5-5.1 Lvl) [place] 634184-05-07 09:42:00 Test Item Value Reference Range Interpretation Comments Creatinine Lvl (test code = Creatinine 0.5 0.5-1.4 Lvl) [facility]2014-05-07 09:42:00 Test Item Value Reference Range Interpretation Comments Glucose Lvl (test code = Glucose Lvl) 94 70-99 [facility]2014-05-07 09:42:00 Test Item Value Reference Range Interpretation Comments Sodium Lvl (test code = Sodium Lvl) 142 135-145 [facility]2014-05-07 09:42:00 Test Item Value Reference Range Interpretation Comments Calcium Lvl (test code = Calcium Lvl) 8.7 8.5-10.5 [facility]2014-05-07 09:42:00 Test Item Value Reference Range Interpretation Comments Chloride Lvl (test code = Chloride Lvl) 105 95-109 [facility]2014-05-07 09:42:00 Test Item Value Reference Range Interpretation Comments CO2 (test code = CO2) 30 24-32 [facility]2014-05-07 09:42:00 Test Item Value Reference Range Interpretation Comments AGAP (test code = AGAP) 10.8 10.0-20.0 [facility] ClubXvniwouKFZKXXMNMF8560-28-57 09:42:00 Test Item Value Reference Range Interpretation Comments WBC (test code = WBC) 4.4 3.7-10.4 [place] 585424-05-07 09:42:00 Test Item Value Reference Range Interpretation Comments RBC (test code = RBC) 3.80 4.20-5.40 [place] 585424-05-07 09:42:00 Test Item Value Reference Range Interpretation Comments MCH (test code = MCH) 31.1 pg 27.0-31.0 [place] [address]-05-07 09:42:00 Test Item Value Reference Range Interpretation Comments Hgb (test code = Hgb) 11.8 12.0-16.0 [facility] ClubBimhqhzMGMQJDOQNJ6749-91-35 09:42:00 Test Item Value Reference Range Interpretation Comments Hct (test code = Hct) 34.5 36.0-48.0 [place] [address]-05-07 09:42:00 Test Item Value Reference Range Interpretation Comments MCV (test code = MCV) 90.6 81.0-99.0 [facility] ClubQbpvseeEKVZQHMGSB5609-61-53 09:42:00 Test Item Value Reference Range Interpretation Comments RDW (test code = RDW) 16.3 11.5-14.5 [facility] ClubDkwscdcFFPKHWSFPT6062-55-48 09:42:00 Test Item Value Reference Range Interpretation Comments MCHC (test code = MCHC) 34.3 32.0-36.0 [facility] ClubJflsrcpXQTTILEFVZ8633-89-40 09:42:00 Test Item Value Reference Range Interpretation Comments Platelet (test code = Platelet) 167 133-450 [facility] ClubAxyfluaBPGRSJPQTF1077-02-08 09:42:00 Test Item Value Reference Range Interpretation Comments MPV (test code = MPV) 7.9 7.4-10.4 [facility] ClubDuxsnrhQZLWFRNNWI8920-87-01 09:42:00 Test Item Value Reference Range Interpretation Comments Eosinophils (test code = 1.6 See_Comment [A utomated message] The Eosinophils) system which ge nerated this result tra nsmitted reference range : <=4.0. The reference r jamaica was not used to int erpret this result as normal/abnormal . [facility] ClubCgmxakvRXNMHQTTGR7074-82-69 09:42:00 Test Item Value Reference Range Interpretation Comments Basophils (test code = 0.2 See_Comment [Aut omated message] The Basophils) system which ge nerated this result tra nsmitted reference range : <=1.0. The reference r jamaica was not used to int erpret this result as normal/abnormal . [facility] ClubZszphllAKIHPSEPPV5048-59-28 09:42:00 Test Item Value Reference Range Interpretation Comments Segs-Bands # (test code = Segs-Bands #) 2.6 1.5-8.1 [facility] ClubMtziwjqZWNSLFCEDB3714-81-03 09:42:00 Test Item Value Reference Range Interpretation Comments Monocytes (test code = Monocytes) 7.4 2.0-12.0 [facility] ClubMjczuevCOAMHACXWG1988-89-76 09:42:00 Test Item Value Reference Range Interpretation Comments Lymphocytes # (test code = Lymphocytes 1.3 1.0-5.5 #) [facility] ClubFdiuupuFEHWKDPKBK4357-13-84 09:42:00 Test Item Value Reference Range Interpretation Comments Monocytes # (test code 0.3 See_Comment [Aut omated message] The = Monocytes #) system which generated this result tra nsmitted reference range : <=0.8. The reference r jamaica was not used to int erpret this result as normal/abnormal . [facility] ClubPsnkiinQBDNNREMAW8625-11-35 09:42:00 Test Item Value Reference Range Interpretation Comments Eosinophils # (test code 0.1 See_Comment [A utomated message] The = Eosinophils #) system whic h generated this result tra nsmitted reference range : <=0.5. The reference r jamaica was not used to int erpret this result as normal/abnormal . [facility] ClubNivttmtXMQTKRRNZU2525-14-50 09:42:00 Test Item Value Reference Range Interpretation Comments Basophils # (test code 0.0 See_Comment [Aut omated message] The = Basophils #) system which generated this result tra nsmitted reference range : <=0.2. The reference r jamaica was not used to int erpret this result as normal/abnormal . [facility] ClubPdkpqliKQEKDSRCND1003-74-90 09:42:00 Test Item Value Reference Range Interpretation Comments Lymphocytes (test code = Lymphocytes) 30.7 20.0-40.0 [place] 585424-05-07 09:42:00 Test Item Value Reference Range Interpretation Comments Segs (test code = Segs) 60.1 45.0-75.0 [facility]2014-05-07 09:42:00 Test Item Value Reference Range Interpretation Comments Magnesium Lvl (test code = Magnesium 2.0 1.8-2.4 Lvl) [facility]2014-05-07 09:42:00 Test Item Value Reference Range Interpretation Comments eGFR (test code = eGFR) 113 [facility]2014-05-07 09:42:00 Test Item Value Reference Range Interpretation Comments BUN (test code = BUN) 4 7-22 [facility]2014-05-07 09:42:00 Test Item Value Reference Range Interpretation Comments Potassium Lvl (test code = Potassium 3.8 3.5-5.1 Lvl) [facility]2014-05-07 09:42:00 Test Item Value Reference Range Interpretation Comments Creatinine Lvl (test code = Creatinine 0.5 0.5-1.4 Lvl) [facility]2014-05-07 09:42:00 Test Item Value Reference Range Interpretation Comments Glucose Lvl (test code = Glucose Lvl) 94 70-99 [facility]2014-05-07 09:42:00 Test Item Value Reference Range Interpretation Comments Sodium Lvl (test code = Sodium Lvl) 142 135-145 [facility]2014-05-07 09:42:00 Test Item Value Reference Range Interpretation Comments Calcium Lvl (test code = Calcium Lvl) 8.7 8.5-10.5 [facility]2014-05-07 09:42:00 Test Item Value Reference Range Interpretation Comments Chloride Lvl (test code = Chloride Lvl) 105 95-109 [facility]2014-05-07 09:42:00 Test Item Value Reference Range Interpretation Comments CO2 (test code = CO2) 30 24-32 [facility]2014-05-07 09:42:00 Test Item Value Reference Range Interpretation Comments AGAP (test code = AGAP) 10.8 10.0-20.0 [facility] ClubAmegevhYBMVMRTRQX2283-81-87 09:42:00 Test Item Value Reference Range Interpretation Comments WBC (test code = WBC) 4.4 3.7-10.4 [facility] ClubNxmcqniOKOLUTQFAN6818-67-17 09:42:00 Test Item Value Reference Range Interpretation Comments RBC (test code = RBC) 3.80 4.20-5.40 [facility] ClubEzykuszQIRCOOCEUT2186-09-15 09:42:00 Test Item Value Reference Range Interpretation Comments MCH (test code = MCH) 31.1 pg 27.0-31.0 [facility] ClubYhwtgsuEVSSNDBADQ9217-94-16 09:42:00 Test Item Value Reference Range Interpretation Comments Hgb (test code = Hgb) 11.8 12.0-16.0 [facility] ClubUvhllkrBZTIDAMRGJ6330-25-22 09:42:00 Test Item Value Reference Range Interpretation Comments Hct (test code = Hct) 34.5 36.0-48.0 [facility] ClubJmmoxedIEPOYSMZCV4255-15-76 09:42:00 Test Item Value Reference Range Interpretation Comments MCV (test code = MCV) 90.6 81.0-99.0 [place] [address]-05-07 09:42:00 Test Item Value Reference Range Interpretation Comments RDW (test code = RDW) 16.3 11.5-14.5 [facility] ClubFovcymjWWAOZOALAK2069-26-61 09:42:00 Test Item Value Reference Range Interpretation Comments MCHC (test code = MCHC) 34.3 32.0-36.0 [facility] ClubGnijqlxFSTGADYAPN9516-18-68 09:42:00 Test Item Value Reference Range Interpretation Comments Platelet (test code = Platelet) 167 133-450 [facility] ClubVkvuatvPEHSUGBEBA7633-77-14 09:42:00 Test Item Value Reference Range Interpretation Comments MPV (test code = MPV) 7.9 7.4-10.4 [facility] ClubEyzgcbpLWBKAWQYSU2358-83-11 09:42:00 Test Item Value Reference Range Interpretation Comments Eosinophils (test code = 1.6 See_Comment [A utomated message] The Eosinophils) system which ge nerated this result tra nsmitted reference range : <=4.0. The reference r jamaica was not used to int erpret this result as normal/abnormal . [facility] ClubTkvybjqIZRQCISEFF7011-53-52 09:42:00 Test Item Value Reference Range Interpretation Comments Basophils (test code = 0.2 See_Comment [Aut omated message] The Basophils) system which ge nerated this result tra nsmitted reference range : <=1.0. The reference r jamaica was not used to int erpret this result as normal/abnormal . [facility] ClubFhorpuxNONKJJIRIB1507-13-11 09:42:00 Test Item Value Reference Range Interpretation Comments Segs-Bands # (test code = Segs-Bands #) 2.6 1.5-8.1 [facility] ClubZnapbloHMLBNKIBUL0028-02-23 09:42:00 Test Item Value Reference Range Interpretation Comments Monocytes (test code = Monocytes) 7.4 2.0-12.0 [facility] ClubGcxrzlkTPRZQFPHMB2551-46-48 09:42:00 Test Item Value Reference Range Interpretation Comments Lymphocytes # (test code = Lymphocytes 1.3 1.0-5.5 #) [facility] ClubQmnxxxjIQCYYFVXSO3034-58-39 09:42:00 Test Item Value Reference Range Interpretation Comments Monocytes # (test code 0.3 See_Comment [Aut omated message] The = Monocytes #) system which generated this result tra nsmitted reference range : <=0.8. The reference r jamaica was not used to int erpret this result as normal/abnormal . [facility] ClubCdallesBDMLMVQOIO1127-60-48 09:42:00 Test Item Value Reference Range Interpretation Comments Eosinophils # (test code 0.1 See_Comment [A utomated message] The = Eosinophils #) system whic h generated this result tra nsmitted reference range : <=0.5. The reference r jamaica was not used to int erpret this result as normal/abnormal . [facility] ClubVwqpaycFJSSHKJQQZ4941-35-17 09:42:00 Test Item Value Reference Range Interpretation Comments Basophils # (test code 0.0 See_Comment [Aut omated message] The = Basophils #) system which generated this result tra nsmitted reference range : <=0.2. The reference r jamaica was not used to int erpret this result as normal/abnormal . [facility] ClubRyndjnvDVXQEGUKIC5835-16-98 09:42:00 Test Item Value Reference Range Interpretation Comments Lymphocytes (test code = Lymphocytes) 30.7 20.0-40.0 [facility] ClubBhtldkdRTVYMZMJYF0870-09-89 09:42:00 Test Item Value Reference Range Interpretation Comments Segs (test code = Segs) 60.1 45.0-75.0 [place] 634184-05-07 09:42:00 Test Item Value Reference Range Interpretation Comments Magnesium Lvl (test code = Magnesium 2.0 1.8-2.4 Lvl) [facility]2014-05-07 09:42:00 Test Item Value Reference Range Interpretation Comments eGFR (test code = eGFR) 113 [facility]2014-05-07 09:42:00 Test Item Value Reference Range Interpretation Comments BUN (test code = BUN) 4 7-22 [facility]2014-05-07 09:42:00 Test Item Value Reference Range Interpretation Comments Potassium Lvl (test code = Potassium 3.8 3.5-5.1 Lvl) [facility]2014-05-07 09:42:00 Test Item Value Reference Range Interpretation Comments Creatinine Lvl (test code = Creatinine 0.5 0.5-1.4 Lvl) [facility]2014-05-07 09:42:00 Test Item Value Reference Range Interpretation Comments Glucose Lvl (test code = Glucose Lvl) 94 70-99 [facility]2014-05-07 09:42:00 Test Item Value Reference Range Interpretation Comments Sodium Lvl (test code = Sodium Lvl) 142 135-145 [facility]2014-05-07 09:42:00 Test Item Value Reference Range Interpretation Comments Calcium Lvl (test code = Calcium Lvl) 8.7 8.5-10.5 [facility]2014-05-07 09:42:00 Test Item Value Reference Range Interpretation Comments Chloride Lvl (test code = Chloride Lvl) 105 95-109 [facility]2014-05-07 09:42:00 Test Item Value Reference Range Interpretation Comments CO2 (test code = CO2) 30 24-32 [facility]2014-05-07 09:42:00 Test Item Value Reference Range Interpretation Comments AGAP (test code = AGAP) 10.8 10.0-20.0 [facility] ClubEwrkyvuRVELBMSLUJ1409-86-96 09:42:00 Test Item Value Reference Range Interpretation Comments WBC (test code = WBC) 4.4 3.7-10.4 [facility] ClubClswozcEUIEYSXJZD7389-68-33 09:42:00 Test Item Value Reference Range Interpretation Comments RBC (test code = RBC) 3.80 4.20-5.40 [facility] ClubBctkmtmOQATPXWSVW6573-36-75 09:42:00 Test Item Value Reference Range Interpretation Comments MCH (test code = MCH) 31.1 pg 27.0-31.0 [facility] ClubRylbssaCHEEEAXCPT8780-03-86 09:42:00 Test Item Value Reference Range Interpretation Comments Hgb (test code = Hgb) 11.8 12.0-16.0 [facility] ClubUbqtsjmCLASYWACJZ8768-43-08 09:42:00 Test Item Value Reference Range Interpretation Comments Hct (test code = Hct) 34.5 36.0-48.0 [facility] ClubPzcjqfrGIVGXWFHFI6921-53-14 09:42:00 Test Item Value Reference Range Interpretation Comments MCV (test code = MCV) 90.6 81.0-99.0 [facility] ClubNtwryevFRNQZECDFN2434-88-40 09:42:00 Test Item Value Reference Range Interpretation Comments RDW (test code = RDW) 16.3 11.5-14.5 [facility] ClubYrdcuwfOSGNOCKRFX2798-31-33 09:42:00 Test Item Value Reference Range Interpretation Comments MCHC (test code = MCHC) 34.3 32.0-36.0 [facility] ClubNijqfmnXBVKSCDEZT9426-68-65 09:42:00 Test Item Value Reference Range Interpretation Comments Platelet (test code = Platelet) 167 133-450 [facility] ClubEgnqmaxJLRLJTZIER9673-91-70 09:42:00 Test Item Value Reference Range Interpretation Comments MPV (test code = MPV) 7.9 7.4-10.4 [facility] ClubMxscfmoRXYPMQEPCN8247-00-58 09:42:00 Test Item Value Reference Range Interpretation Comments Eosinophils (test code = 1.6 See_Comment [A utomated message] The Eosinophils) system which ge nerated this result tra nsmitted reference range : <=4.0. The reference r jamaica was not used to int erpret this result as normal/abnormal . [facility] ClubVpxdnvkPDXPYSZRYU2814-76-24 09:42:00 Test Item Value Reference Range Interpretation Comments Basophils (test code = 0.2 See_Comment [Aut omated message] The Basophils) system which ge nerated this result tra nsmitted reference range : <=1.0. The reference r jamaica was not used to int erpret this result as normal/abnormal . [facility] ClubUutrfdqAHLZFSJSDO7414-96-71 09:42:00 Test Item Value Reference Range Interpretation Comments Segs-Bands # (test code = Segs-Bands #) 2.6 1.5-8.1 [facility] ClubQmcmtweOAPRDNJIQX9577-64-73 09:42:00 Test Item Value Reference Range Interpretation Comments Monocytes (test code = Monocytes) 7.4 2.0-12.0 [facility] ClubSxhkujaRGWYOKAGGP7847-71-48 09:42:00 Test Item Value Reference Range Interpretation Comments Lymphocytes # (test code = Lymphocytes 1.3 1.0-5.5 #) [facility] ClubLtcrmidXVIDFFMLIU5563-86-33 09:42:00 Test Item Value Reference Range Interpretation Comments Monocytes # (test code 0.3 See_Comment [Aut omated message] The = Monocytes #) system which generated this result tra nsmitted reference range : <=0.8. The reference r jamaica was not used to int erpret this result as normal/abnormal . [facility] ClubTgqizjrLTWPLPOPLO2070-79-24 09:42:00 Test Item Value Reference Range Interpretation Comments Eosinophils # (test code 0.1 See_Comment [A utomated message] The = Eosinophils #) system whic h generated this result tra nsmitted reference range : <=0.5. The reference r jamaica was not used to int erpret this result as normal/abnormal . [facility] ClubIzugmasMFIRXPOAQA5971-42-17 09:42:00 Test Item Value Reference Range Interpretation Comments Basophils # (test code 0.0 See_Comment [Aut omated message] The = Basophils #) system which generated this result tra nsmitted reference range : <=0.2. The reference r jamaica was not used to int erpret this result as normal/abnormal . [facility] ClubVymqsvaFGHERNOFTX1008-66-51 09:42:00 Test Item Value Reference Range Interpretation Comments Lymphocytes (test code = Lymphocytes) 30.7 20.0-40.0 [facility] ClubHdstcmbTKHZQROUKZ5417-07-12 09:42:00 Test Item Value Reference Range Interpretation Comments Segs (test code = Segs) 60.1 45.0-75.0 [facility]2014-05-07 09:42:00 Test Item Value Reference Range Interpretation Comments Magnesium Lvl (test code = Magnesium 2.0 1.8-2.4 Lvl) [facility] ClubYuaxnxiDNOLSWVAUS6352-79-35 09:42:00 Test Item Value Reference Range Interpretation Comments WBC (test code = WBC) 4.4 3.7-10.4 [facility] ClubLbwdshjVLNMKALADU5540-64-10 09:42:00 Test Item Value Reference Range Interpretation Comments RBC (test code = RBC) 3.80 4.20-5.40 [facility] ClubNawxrauOSOMDCGXDF9712-27-33 09:42:00 Test Item Value Reference Range Interpretation Comments MCH (test code = MCH) 31.1 pg 27.0-31.0 [facility] ClubLthjzuiKKNXBBXAMZ0292-57-11 09:42:00 Test Item Value Reference Range Interpretation Comments Hgb (test code = Hgb) 11.8 12.0-16.0 [facility] ClubXxipdloIICTMPLJQD5364-42-11 09:42:00 Test Item Value Reference Range Interpretation Comments Hct (test code = Hct) 34.5 36.0-48.0 [facility] ClubXohrcmmCDJXEARZRW2431-42-55 09:42:00 Test Item Value Reference Range Interpretation Comments MCV (test code = MCV) 90.6 81.0-99.0 [facility] ClubDaebiarZPVEAOURXY5988-20-00 09:42:00 Test Item Value Reference Range Interpretation Comments RDW (test code = RDW) 16.3 11.5-14.5 [facility] ClubAnoyqefQBYPDTGZXV0092-23-18 09:42:00 Test Item Value Reference Range Interpretation Comments MCHC (test code = MCHC) 34.3 32.0-36.0 [facility] ClubIbwvuxcAJIVCLOCZV4462-44-09 09:42:00 Test Item Value Reference Range Interpretation Comments Platelet (test code = Platelet) 167 133-450 [facility] ClubFjphionRYFQDQPUVB9630-49-98 09:42:00 Test Item Value Reference Range Interpretation Comments MPV (test code = MPV) 7.9 7.4-10.4 [facility] ClubJwuxwanJPNAPRCYXM6528-64-89 09:42:00 Test Item Value Reference Range Interpretation Comments Eosinophils (test code = 1.6 See_Comment [A utomated message] The Eosinophils) system which ge nerated this result tra nsmitted reference range : <=4.0. The reference r jamaica was not used to int erpret this result as normal/abnormal . [facility] ClubEbqaivkYHEBCIAENC8923-07-38 09:42:00 Test Item Value Reference Range Interpretation Comments Basophils (test code = 0.2 See_Comment [Aut omated message] The Basophils) system which ge nerated this result tra nsmitted reference range : <=1.0. The reference r jamaica was not used to int erpret this result as normal/abnormal . [facility] ClubZyzvqvhSEKEIAHYPN8822-80-20 09:42:00 Test Item Value Reference Range Interpretation Comments Segs-Bands # (test code = Segs-Bands #) 2.6 1.5-8.1 [facility] ClubMelhxpfNWNWKMBVMN1789-64-65 09:42:00 Test Item Value Reference Range Interpretation Comments Monocytes (test code = Monocytes) 7.4 2.0-12.0 [facility] ClubFiqskyuHNAMUXWLAF2936-84-49 09:42:00 Test Item Value Reference Range Interpretation Comments Lymphocytes # (test code = Lymphocytes 1.3 1.0-5.5 #) [facility] ClubCoxtvicQAMBYMDUXN4116-23-30 09:42:00 Test Item Value Reference Range Interpretation Comments Monocytes # (test code 0.3 See_Comment [Aut omated message] The = Monocytes #) system which generated this result tra nsmitted reference range : <=0.8. The reference r jamaica was not used to int erpret this result as normal/abnormal . [facility] ClubJjkhdwwUHVFXLQZPH4666-31-50 09:42:00 Test Item Value Reference Range Interpretation Comments Eosinophils # (test code 0.1 See_Comment [A utomated message] The = Eosinophils #) system whic h generated this result tra nsmitted reference range : <=0.5. The reference r jamaica was not used to int erpret this result as normal/abnormal . [facility] ClubNjaqofkOYABRXZAHS0583-45-02 09:42:00 Test Item Value Reference Range Interpretation Comments Basophils # (test code 0.0 See_Comment [Aut omated message] The = Basophils #) system which generated this result tra nsmitted reference range : <=0.2. The reference r jamaica was not used to int erpret this result as normal/abnormal . [facility] ClubOocujvvOZCXDQVFMI9794-86-27 09:42:00 Test Item Value Reference Range Interpretation Comments Lymphocytes (test code = Lymphocytes) 30.7 20.0-40.0 [place] [address]-05-07 09:42:00 Test Item Value Reference Range Interpretation Comments Segs (test code = Segs) 60.1 45.0-75.0 [facility]2014-05-07 09:42:00 Test Item Value Reference Range Interpretation Comments Magnesium Lvl (test code = Magnesium 2.0 1.8-2.4 Lvl) [facility]2014-05-07 09:42:00 Test Item Value Reference Range Interpretation Comments eGFR (test code = eGFR) 113 [facility]2014-05-07 09:42:00 Test Item Value Reference Range Interpretation Comments BUN (test code = BUN) 4 7-22 [facility]2014-05-07 09:42:00 Test Item Value Reference Range Interpretation Comments Potassium Lvl (test code = Potassium 3.8 3.5-5.1 Lvl) [facility]2014-05-07 09:42:00 Test Item Value Reference Range Interpretation Comments Creatinine Lvl (test code = Creatinine 0.5 0.5-1.4 Lvl) [facility]2014-05-07 09:42:00 Test Item Value Reference Range Interpretation Comments Glucose Lvl (test code = Glucose Lvl) 94 70-99 [facility]2014-05-07 09:42:00 Test Item Value Reference Range Interpretation Comments Sodium Lvl (test code = Sodium Lvl) 142 135-145 [facility]2014-05-07 09:42:00 Test Item Value Reference Range Interpretation Comments Calcium Lvl (test code = Calcium Lvl) 8.7 8.5-10.5 [facility]2014-05-07 09:42:00 Test Item Value Reference Range Interpretation Comments Chloride Lvl (test code = Chloride Lvl) 105 95-109 [facility]2014-05-07 09:42:00 Test Item Value Reference Range Interpretation Comments CO2 (test code = CO2) 30 24-32 [facility]2014-05-07 09:42:00 Test Item Value Reference Range Interpretation Comments AGAP (test code = AGAP) 10.8 10.0-20.0 [facility]2014-05-05 12:13:00 Test Item Value Reference Range Interpretation Comments Magnesium Lvl (test code = Magnesium 1.8 1.8-2.4 Lvl) [facility]2014-05-05 12:13:00 Test Item Value Reference Range Interpretation Comments Phosphorus (test code = Phosphorus) 2.6 2.5-4.5 [facility]2014-05-05 12:13:00 Test Item Value Reference Range Interpretation Comments Globulin (test code = Globulin) 2.8 2.0-4.0 [facility]2014-05-05 12:13:00 Test Item Value Reference Range Interpretation Comments A/G Ratio (test code = A/G Ratio) 1.2 0.7-1.6 [facility]2014-05-05 12:13:00 Test Item Value Reference Range Interpretation Comments B/C Ratio (test code = B/C Ratio) 10 6-25 [facility]2014-05-05 12:13:00 Test Item Value Reference Range Interpretation Comments AGAP (test code = AGAP) 6.9 10.0-20.0 [facility]2014-05-05 12:13:00 Test Item Value Reference Range Interpretation Comments eGFR (test code = eGFR) 101 [facility]2014-05-05 12:13:00 Test Item Value Reference Range Interpretation Comments Glucose Lvl (test code = Glucose Lvl) 84 70-99 [facility]2014-05-05 12:13:00 Test Item Value Reference Range Interpretation Comments Potassium Lvl (test code = Potassium 3.9 3.5-5.1 Lvl) [facility]2014-05-05 12:13:00 Test Item Value Reference Range Interpretation Comments Sodium Lvl (test code = Sodium Lvl) 141 135-145 [facility]2014-05-05 12:13:00 Test Item Value Reference Range Interpretation Comments Creatinine Lvl (test code = Creatinine 0.7 0.5-1.4 Lvl) [facility]2014-05-05 12:13:00 Test Item Value Reference Range Interpretation Comments BUN (test code = BUN) 7 7-22 [facility]2014-05-05 12:13:00 Test Item Value Reference Range Interpretation Comments Bili Total (test code = Bili Total) 0.3 0.2-1.3 [facility]2014-05-05 12:13:00 Test Item Value Reference Range Interpretation Comments Alk Phos (test code = Alk Phos) 71 39-136 [facility]2014-05-05 12:13:00 Test Item Value Reference Range Interpretation Comments AST (test code = AST) 21 See_Comment [Auto mated message] The system which ge nerated this result transmit ulysses reference range : <=37. The reference range was not used to interpr et this result as sharron l/abnormal. [facility]2014-05-05 12:13:00 Test Item Value Reference Range Interpretation Comments ALT (test code = ALT) 20 See_Comment [Auto mated message] The system which ge nerated this result transmit ulysses reference range : <=65. The reference range was not used to interpr et this result as sharron l/abnormal. [facility]2014-05-05 12:13:00 Test Item Value Reference Range Interpretation Comments Total Protein (test code = Total 6.1 6.4-8.4 Protein) [facility]2014-05-05 12:13:00 Test Item Value Reference Range Interpretation Comments CO2 (test code = CO2) 33 24-32 [place] 634184-05-05 12:13:00 Test Item Value Reference Range Interpretation Comments Albumin Lvl (test code = Albumin Lvl) 3.3 3.5-5.0 [facility]2014-05-05 12:13:00 Test Item Value Reference Range Interpretation Comments Calcium Lvl (test code = Calcium Lvl) 8.4 8.5-10.5 [facility]2014-05-05 12:13:00 Test Item Value Reference Range Interpretation Comments Chloride Lvl (test code = Chloride Lvl) 105 95-109 [facility] ClubDcrnhwmTMRSYFNOCR5151-70-57 12:13:00 Test Item Value Reference Range Interpretation Comments Basophils # (test code 0.0 See_Comment [Aut omated message] The = Basophils #) system which generated this result tra nsmitted reference range : <=0.2. The reference r jamaica was not used to int erpret this result as normal/abnormal . [facility] ClubNpsiozmTEJOZOZJTC5169-47-09 12:13:00 Test Item Value Reference Range Interpretation Comments Segs (test code = Segs) 63.5 45.0-75.0 [facility] ClubHytlhpiJMBINPVDXB2831-82-33 12:13:00 Test Item Value Reference Range Interpretation Comments Monocytes # (test code 0.3 See_Comment [Aut omated message] The = Monocytes #) system which generated this result tra nsmitted reference range : <=0.8. The reference r jamaica was not used to int erpret this result as normal/abnormal . [facility] ClubPgysdbcVDLKCQGHVW2858-93-85 12:13:00 Test Item Value Reference Range Interpretation Comments Basophils (test code = 0.2 See_Comment [Aut omated message] The Basophils) system which ge nerated this result tra nsmitted reference range : <=1.0. The reference r jamaica was not used to int erpret this result as normal/abnormal . [facility] ClubUkitwdgQXXIEGRAHI9881-71-75 12:13:00 Test Item Value Reference Range Interpretation Comments Lymphocytes # (test code = Lymphocytes 1.5 1.0-5.5 #) [facility] ClubXquefjmSYSUUZXWYS2093-36-11 12:13:00 Test Item Value Reference Range Interpretation Comments Segs-Bands # (test code = Segs-Bands #) 3.3 1.5-8.1 [facility] ClubFdcbuydZGQCGQIZAW1344-65-89 12:13:00 Test Item Value Reference Range Interpretation Comments Eosinophils # (test code 0.1 See_Comment [A utomated message] The = Eosinophils #) system whic h generated this result tra nsmitted reference range : <=0.5. The reference r jamaica was not used to int erpret this result as normal/abnormal . [facility] ClubFndeveyPNRZZKYLBY2966-98-90 12:13:00 Test Item Value Reference Range Interpretation Comments Lymphocytes (test code = Lymphocytes) 28.9 20.0-40.0 [facility] ClubNydctvvWONCSIMWEX5009-72-66 12:13:00 Test Item Value Reference Range Interpretation Comments Monocytes (test code = Monocytes) 6.2 2.0-12.0 [facility] ClubUozbkzlISZOJYYGSG9857-49-06 12:13:00 Test Item Value Reference Range Interpretation Comments Eosinophils (test code = 1.2 See_Comment [A utomated message] The Eosinophils) system which ge nerated this result tra nsmitted reference range : <=4.0. The reference r jamaica was not used to int erpret this result as normal/abnormal . [facility] ClubElrjlfuTXKJNNYGIY7488-65-43 12:13:00 Test Item Value Reference Range Interpretation Comments MCHC (test code = MCHC) 34.3 32.0-36.0 [facility] ClubWbcjnjyNZYJQBESOJ1800-20-64 12:13:00 Test Item Value Reference Range Interpretation Comments RDW (test code = RDW) 16.5 11.5-14.5 [facility] ClubDcgmrutTITOLHYYJM0043-11-52 12:13:00 Test Item Value Reference Range Interpretation Comments MCH (test code = MCH) 31.5 pg 27.0-31.0 [facility] ClubPrkiqkwTQAXPGECVR7682-11-42 12:13:00 Test Item Value Reference Range Interpretation Comments MCV (test code = MCV) 91.9 81.0-99.0 [facility] ClubIegwkikYEYWLLQGZL0094-16-03 12:13:00 Test Item Value Reference Range Interpretation Comments Platelet (test code = Platelet) 177 133-450 [facility] ClubUjnyyfgOYUIJZMXVY5040-92-31 12:13:00 Test Item Value Reference Range Interpretation Comments MPV (test code = MPV) 7.9 7.4-10.4 [facility] ClubCesagmsHBCRSFEZZU1017-52-79 12:13:00 Test Item Value Reference Range Interpretation Comments RBC (test code = RBC) 3.91 4.20-5.40 [facility] ClubVgbrjmkEUYKCOCVCX5082-93-72 12:13:00 Test Item Value Reference Range Interpretation Comments Hct (test code = Hct) 35.9 36.0-48.0 [facility] ClubVoerlblQOKZKVOYGK3083-37-38 12:13:00 Test Item Value Reference Range Interpretation Comments Hgb (test code = Hgb) 12.3 12.0-16.0 [facility] ClubRbtfsmdIYQJAVIMLL9309-05-04 12:13:00 Test Item Value Reference Range Interpretation Comments WBC (test code = WBC) 5.1 3.7-10.4 [facility]2014-05-05 12:13:00 Test Item Value Reference Range Interpretation Comments Magnesium Lvl (test code = Magnesium 1.8 1.8-2.4 Lvl) [facility]2014-05-05 12:13:00 Test Item Value Reference Range Interpretation Comments Phosphorus (test code = Phosphorus) 2.6 2.5-4.5 [facility]2014-05-05 12:13:00 Test Item Value Reference Range Interpretation Comments Globulin (test code = Globulin) 2.8 2.0-4.0 [facility]2014-05-05 12:13:00 Test Item Value Reference Range Interpretation Comments A/G Ratio (test code = A/G Ratio) 1.2 0.7-1.6 [facility]2014-05-05 12:13:00 Test Item Value Reference Range Interpretation Comments B/C Ratio (test code = B/C Ratio) 10 6-25 [facility]2014-05-05 12:13:00 Test Item Value Reference Range Interpretation Comments AGAP (test code = AGAP) 6.9 10.0-20.0 [facility]2014-05-05 12:13:00 Test Item Value Reference Range Interpretation Comments eGFR (test code = eGFR) 101 [facility]2014-05-05 12:13:00 Test Item Value Reference Range Interpretation Comments Glucose Lvl (test code = Glucose Lvl) 84 70-99 [facility]2014-05-05 12:13:00 Test Item Value Reference Range Interpretation Comments Potassium Lvl (test code = Potassium 3.9 3.5-5.1 Lvl) [facility]2014-05-05 12:13:00 Test Item Value Reference Range Interpretation Comments Sodium Lvl (test code = Sodium Lvl) 141 135-145 [facility]2014-05-05 12:13:00 Test Item Value Reference Range Interpretation Comments Creatinine Lvl (test code = Creatinine 0.7 0.5-1.4 Lvl) [facility]2014-05-05 12:13:00 Test Item Value Reference Range Interpretation Comments BUN (test code = BUN) 7 7-22 [place] 634184-05-05 12:13:00 Test Item Value Reference Range Interpretation Comments Bili Total (test code = Bili Total) 0.3 0.2-1.3 [place] 634184-05-05 12:13:00 Test Item Value Reference Range Interpretation Comments Alk Phos (test code = Alk Phos) 71 39-136 [place] 634184-05-05 12:13:00 Test Item Value Reference Range Interpretation Comments AST (test code = AST) 21 See_Comment [Auto mated message] The system which ge nerated this result transmit ulysses reference range : <=37. The reference range was not used to interpr et this result as sharron l/abnormal. [facility]2014-05-05 12:13:00 Test Item Value Reference Range Interpretation Comments ALT (test code = ALT) 20 See_Comment [Auto mated message] The system which ge nerated this result transmit ulysses reference range : <=65. The reference range was not used to interpr et this result as sharron l/abnormal. [facility]2014-05-05 12:13:00 Test Item Value Reference Range Interpretation Comments Total Protein (test code = Total 6.1 6.4-8.4 Protein) [place]34184-05-05 12:13:00 Test Item Value Reference Range Interpretation Comments CO2 (test code = CO2) 33 24-32 [place] 634184-05-05 12:13:00 Test Item Value Reference Range Interpretation Comments Albumin Lvl (test code = Albumin Lvl) 3.3 3.5-5.0 [facility]2014-05-05 12:13:00 Test Item Value Reference Range Interpretation Comments Calcium Lvl (test code = Calcium Lvl) 8.4 8.5-10.5 [facility]2014-05-05 12:13:00 Test Item Value Reference Range Interpretation Comments Chloride Lvl (test code = Chloride Lvl) 105 95-109 [facility] ClubCmtzoagAPRHKGFSBN8982-65-78 12:13:00 Test Item Value Reference Range Interpretation Comments Basophils # (test code 0.0 See_Comment [Aut omated message] The = Basophils #) system which generated this result tra nsmitted reference range : <=0.2. The reference r jamaica was not used to int erpret this result as normal/abnormal . [facility] ClubCwesfmqNPYAWXFZAW2013-17-60 12:13:00 Test Item Value Reference Range Interpretation Comments Segs (test code = Segs) 63.5 45.0-75.0 [facility] ClubHxgfnxtGUTEFKRSNH7522-25-72 12:13:00 Test Item Value Reference Range Interpretation Comments Monocytes # (test code 0.3 See_Comment [Aut omated message] The = Monocytes #) system which generated this result tra nsmitted reference range : <=0.8. The reference r jamaica was not used to int erpret this result as normal/abnormal . [facility] ClubFylknswSGSGSKBEGR7229-17-65 12:13:00 Test Item Value Reference Range Interpretation Comments Basophils (test code = 0.2 See_Comment [Aut omated message] The Basophils) system which ge nerated this result tra nsmitted reference range : <=1.0. The reference r jamaica was not used to int erpret this result as normal/abnormal . [facility] ClubAexcjkyGILEOYRFZX6089-18-25 12:13:00 Test Item Value Reference Range Interpretation Comments Lymphocytes # (test code = Lymphocytes 1.5 1.0-5.5 #) [facility] ClubFlrrbrdZFKLEAQJRJ7726-01-24 12:13:00 Test Item Value Reference Range Interpretation Comments Segs-Bands # (test code = Segs-Bands #) 3.3 1.5-8.1 [facility] ClubLcsywmpWOLCJLSKZX5716-00-04 12:13:00 Test Item Value Reference Range Interpretation Comments Eosinophils # (test code 0.1 See_Comment [A utomated message] The = Eosinophils #) system whic h generated this result tra nsmitted reference range : <=0.5. The reference r jamaica was not used to int erpret this result as normal/abnormal . [facility] ClubNrfsheqYCLHGVXPWC2475-77-06 12:13:00 Test Item Value Reference Range Interpretation Comments Lymphocytes (test code = Lymphocytes) 28.9 20.0-40.0 [facility] ClubNjredmfLUYKQBBHRH4898-60-00 12:13:00 Test Item Value Reference Range Interpretation Comments Monocytes (test code = Monocytes) 6.2 2.0-12.0 [facility] ClubAxynsnvEFFTFGHQDD8846-08-20 12:13:00 Test Item Value Reference Range Interpretation Comments Eosinophils (test code = 1.2 See_Comment [A utomated message] The Eosinophils) system which ge nerated this result tra nsmitted reference range : <=4.0. The reference r jamaica was not used to int erpret this result as normal/abnormal . [facility] ClubJdzmbduEGOHYMXYJK1950-83-30 12:13:00 Test Item Value Reference Range Interpretation Comments MCHC (test code = MCHC) 34.3 32.0-36.0 [facility] ClubZqycngvRXPXXLNCKN6652-93-42 12:13:00 Test Item Value Reference Range Interpretation Comments RDW (test code = RDW) 16.5 11.5-14.5 [facility] ClubAhkwlflLYAOZKSLOR0032-88-12 12:13:00 Test Item Value Reference Range Interpretation Comments MCH (test code = MCH) 31.5 pg 27.0-31.0 [facility] ClubVuojdbqFZSYYBIMCQ1926-89-22 12:13:00 Test Item Value Reference Range Interpretation Comments MCV (test code = MCV) 91.9 81.0-99.0 [facility] ClubJwbqyviCKYNVOMKTE8441-36-99 12:13:00 Test Item Value Reference Range Interpretation Comments Platelet (test code = Platelet) 177 133-450 [facility] ClubCgeuubeBKJYUYPLAA4439-25-67 12:13:00 Test Item Value Reference Range Interpretation Comments MPV (test code = MPV) 7.9 7.4-10.4 [facility] ClubQtmqetjFKTLDDKIAY7155-31-44 12:13:00 Test Item Value Reference Range Interpretation Comments RBC (test code = RBC) 3.91 4.20-5.40 [facility] ClubSbgjugjBJYFCSGARI9195-46-34 12:13:00 Test Item Value Reference Range Interpretation Comments Hct (test code = Hct) 35.9 36.0-48.0 [facility] ClubKtbsrvfMRXSFOLEXN2940-43-86 12:13:00 Test Item Value Reference Range Interpretation Comments Hgb (test code = Hgb) 12.3 12.0-16.0 [facility] ClubXkguefmWYBXVDNQAU5524-47-61 12:13:00 Test Item Value Reference Range Interpretation Comments WBC (test code = WBC) 5.1 3.7-10.4 [facility]2014-05-05 12:13:00 Test Item Value Reference Range Interpretation Comments Magnesium Lvl (test code = Magnesium 1.8 1.8-2.4 Lvl) [facility]2014-05-05 12:13:00 Test Item Value Reference Range Interpretation Comments Phosphorus (test code = Phosphorus) 2.6 2.5-4.5 [facility]2014-05-05 12:13:00 Test Item Value Reference Range Interpretation Comments Globulin (test code = Globulin) 2.8 2.0-4.0 [facility]2014-05-05 12:13:00 Test Item Value Reference Range Interpretation Comments A/G Ratio (test code = A/G Ratio) 1.2 0.7-1.6 [facility]2014-05-05 12:13:00 Test Item Value Reference Range Interpretation Comments B/C Ratio (test code = B/C Ratio) 10 6-25 [facility]2014-05-05 12:13:00 Test Item Value Reference Range Interpretation Comments AGAP (test code = AGAP) 6.9 10.0-20.0 [facility]2014-05-05 12:13:00 Test Item Value Reference Range Interpretation Comments eGFR (test code = eGFR) 101 [facility]2014-05-05 12:13:00 Test Item Value Reference Range Interpretation Comments Glucose Lvl (test code = Glucose Lvl) 84 70-99 [facility]2014-05-05 12:13:00 Test Item Value Reference Range Interpretation Comments Potassium Lvl (test code = Potassium 3.9 3.5-5.1 Lvl) [facility]2014-05-05 12:13:00 Test Item Value Reference Range Interpretation Comments Sodium Lvl (test code = Sodium Lvl) 141 135-145 [facility]2014-05-05 12:13:00 Test Item Value Reference Range Interpretation Comments Creatinine Lvl (test code = Creatinine 0.7 0.5-1.4 Lvl) [facility]2014-05-05 12:13:00 Test Item Value Reference Range Interpretation Comments BUN (test code = BUN) 7 7-22 [facility]2014-05-05 12:13:00 Test Item Value Reference Range Interpretation Comments Bili Total (test code = Bili Total) 0.3 0.2-1.3 [facility]2014-05-05 12:13:00 Test Item Value Reference Range Interpretation Comments Alk Phos (test code = Alk Phos) 71 39-136 [facility]2014-05-05 12:13:00 Test Item Value Reference Range Interpretation Comments AST (test code = AST) 21 See_Comment [Auto mated message] The system which ge nerated this result transmit ulysses reference range : <=37. The reference range was not used to interpr et this result as sharron l/abnormal. [facility]2014-05-05 12:13:00 Test Item Value Reference Range Interpretation Comments ALT (test code = ALT) 20 See_Comment [Auto mated message] The system which ge nerated this result transmit ulysses reference range : <=65. The reference range was not used to interpr et this result as sharron l/abnormal. [facility]2014-05-05 12:13:00 Test Item Value Reference Range Interpretation Comments Total Protein (test code = Total 6.1 6.4-8.4 Protein) [facility]2014-05-05 12:13:00 Test Item Value Reference Range Interpretation Comments CO2 (test code = CO2) 33 24-32 [facility]2014-05-05 12:13:00 Test Item Value Reference Range Interpretation Comments Albumin Lvl (test code = Albumin Lvl) 3.3 3.5-5.0 [facility]2014-05-05 12:13:00 Test Item Value Reference Range Interpretation Comments Calcium Lvl (test code = Calcium Lvl) 8.4 8.5-10.5 [facility]2014-05-05 12:13:00 Test Item Value Reference Range Interpretation Comments Chloride Lvl (test code = Chloride Lvl) 105 95-109 [facility] ClubDelqussCXWGXFXCIK0041-18-98 12:13:00 Test Item Value Reference Range Interpretation Comments Basophils # (test code 0.0 See_Comment [Aut omated message] The = Basophils #) system which generated this result tra nsmitted reference range : <=0.2. The reference r jamaica was not used to int erpret this result as normal/abnormal . [facility] ClubBpqelgyDZMYITMMFC3715-01-89 12:13:00 Test Item Value Reference Range Interpretation Comments Segs (test code = Segs) 63.5 45.0-75.0 [facility] ClubCsyrjoxOYOSHALDLD6618-63-36 12:13:00 Test Item Value Reference Range Interpretation Comments Monocytes # (test code 0.3 See_Comment [Aut omated message] The = Monocytes #) system which generated this result tra nsmitted reference range : <=0.8. The reference r jamaica was not used to int erpret this result as normal/abnormal . [facility] ClubEjuuiooUDBNGGEXMU8432-48-89 12:13:00 Test Item Value Reference Range Interpretation Comments Basophils (test code = 0.2 See_Comment [Aut omated message] The Basophils) system which ge nerated this result tra nsmitted reference range : <=1.0. The reference r jamaica was not used to int erpret this result as normal/abnormal . [facility] ClubVfpmpnoHLDSFQLYVW9190-22-91 12:13:00 Test Item Value Reference Range Interpretation Comments Lymphocytes # (test code = Lymphocytes 1.5 1.0-5.5 #) [facility] ClubAipixdxIZBESHQEUO9081-78-57 12:13:00 Test Item Value Reference Range Interpretation Comments Segs-Bands # (test code = Segs-Bands #) 3.3 1.5-8.1 [facility] ClubXipcwwdSGDSXOLELA7152-34-33 12:13:00 Test Item Value Reference Range Interpretation Comments Eosinophils # (test code 0.1 See_Comment [A utomated message] The = Eosinophils #) system whic h generated this result tra nsmitted reference range : <=0.5. The reference r jamaica was not used to int erpret this result as normal/abnormal . [facility] ClubCebeuemYPJULTHCVQ3385-09-71 12:13:00 Test Item Value Reference Range Interpretation Comments Lymphocytes (test code = Lymphocytes) 28.9 20.0-40.0 [facility] ClubSfimybyQLGQMLAGGS1938-71-45 12:13:00 Test Item Value Reference Range Interpretation Comments Monocytes (test code = Monocytes) 6.2 2.0-12.0 [facility] ClubPxiffytWLCHNAINCE2070-27-36 12:13:00 Test Item Value Reference Range Interpretation Comments Eosinophils (test code = 1.2 See_Comment [A utomated message] The Eosinophils) system which ge nerated this result tra nsmitted reference range : <=4.0. The reference r jamaica was not used to int erpret this result as normal/abnormal . [facility] ClubZrpuyocCGJKGAFFXS8869-32-94 12:13:00 Test Item Value Reference Range Interpretation Comments MCHC (test code = MCHC) 34.3 32.0-36.0 [facility] ClubNrjxfgoRGAEMKDOMU1761-04-41 12:13:00 Test Item Value Reference Range Interpretation Comments RDW (test code = RDW) 16.5 11.5-14.5 [facility] ClubGukubnoFHDBRYCERW8447-12-43 12:13:00 Test Item Value Reference Range Interpretation Comments MCH (test code = MCH) 31.5 pg 27.0-31.0 [facility] ClubUrycdkpUGMAFTYXYL7251-23-95 12:13:00 Test Item Value Reference Range Interpretation Comments MCV (test code = MCV) 91.9 81.0-99.0 [facility] ClubBbzkkixMEVUDUQCPK4347-45-01 12:13:00 Test Item Value Reference Range Interpretation Comments Platelet (test code = Platelet) 177 133-450 [facility] ClubAoaxgveVNBCGIFBDE5655-17-95 12:13:00 Test Item Value Reference Range Interpretation Comments MPV (test code = MPV) 7.9 7.4-10.4 [facility] ClubBuhbwioGPBMHNBMCX6476-65-69 12:13:00 Test Item Value Reference Range Interpretation Comments RBC (test code = RBC) 3.91 4.20-5.40 [facility] ClubKigaaqmYTKNHKCOWY7190-18-63 12:13:00 Test Item Value Reference Range Interpretation Comments Hct (test code = Hct) 35.9 36.0-48.0 [facility] ClubElcchraAXTEFEWXBJ4984-17-01 12:13:00 Test Item Value Reference Range Interpretation Comments Hgb (test code = Hgb) 12.3 12.0-16.0 [facility] ClubWbbxtyfPWRBTLNVUQ0232-77-54 12:13:00 Test Item Value Reference Range Interpretation Comments WBC (test code = WBC) 5.1 3.7-10.4 [facility]2014-05-05 12:13:00 Test Item Value Reference Range Interpretation Comments Magnesium Lvl (test code = Magnesium 1.8 1.8-2.4 Lvl) [facility]2014-05-05 12:13:00 Test Item Value Reference Range Interpretation Comments Phosphorus (test code = Phosphorus) 2.6 2.5-4.5 [facility]2014-05-05 12:13:00 Test Item Value Reference Range Interpretation Comments Globulin (test code = Globulin) 2.8 2.0-4.0 [facility]2014-05-05 12:13:00 Test Item Value Reference Range Interpretation Comments A/G Ratio (test code = A/G Ratio) 1.2 0.7-1.6 [place] 634184-05-05 12:13:00 Test Item Value Reference Range Interpretation Comments B/C Ratio (test code = B/C Ratio) 10 6-25 [facility]2014-05-05 12:13:00 Test Item Value Reference Range Interpretation Comments AGAP (test code = AGAP) 6.9 10.0-20.0 [facility]2014-05-05 12:13:00 Test Item Value Reference Range Interpretation Comments eGFR (test code = eGFR) 101 [facility]2014-05-05 12:13:00 Test Item Value Reference Range Interpretation Comments Glucose Lvl (test code = Glucose Lvl) 84 70-99 [facility]2014-05-05 12:13:00 Test Item Value Reference Range Interpretation Comments Potassium Lvl (test code = Potassium 3.9 3.5-5.1 Lvl) [facility]2014-05-05 12:13:00 Test Item Value Reference Range Interpretation Comments Sodium Lvl (test code = Sodium Lvl) 141 135-145 [facility]2014-05-05 12:13:00 Test Item Value Reference Range Interpretation Comments Creatinine Lvl (test code = Creatinine 0.7 0.5-1.4 Lvl) [facility]2014-05-05 12:13:00 Test Item Value Reference Range Interpretation Comments BUN (test code = BUN) 7 7-22 [facility]2014-05-05 12:13:00 Test Item Value Reference Range Interpretation Comments Bili Total (test code = Bili Total) 0.3 0.2-1.3 [facility]2014-05-05 12:13:00 Test Item Value Reference Range Interpretation Comments Alk Phos (test code = Alk Phos) 71 39-136 [facility]2014-05-05 12:13:00 Test Item Value Reference Range Interpretation Comments AST (test code = AST) 21 See_Comment [Auto mated message] The system which ge nerated this result transmit ulysses reference range : <=37. The reference range was not used to interpr et this result as sharron l/abnormal. [facility]2014-05-05 12:13:00 Test Item Value Reference Range Interpretation Comments ALT (test code = ALT) 20 See_Comment [Auto mated message] The system which ge nerated this result transmit ulysses reference range : <=65. The reference range was not used to interpr et this result as sharron l/abnormal. [facility]2014-05-05 12:13:00 Test Item Value Reference Range Interpretation Comments Total Protein (test code = Total 6.1 6.4-8.4 Protein) [facility]2014-05-05 12:13:00 Test Item Value Reference Range Interpretation Comments CO2 (test code = CO2) 33 24-32 [place] 634184-05-05 12:13:00 Test Item Value Reference Range Interpretation Comments Albumin Lvl (test code = Albumin Lvl) 3.3 3.5-5.0 [facility]2014-05-05 12:13:00 Test Item Value Reference Range Interpretation Comments Calcium Lvl (test code = Calcium Lvl) 8.4 8.5-10.5 [facility]2014-05-05 12:13:00 Test Item Value Reference Range Interpretation Comments Chloride Lvl (test code = Chloride Lvl) 105 95-109 [facility] ClubWvzzkyfIUMVFGFIZF8172-71-41 12:13:00 Test Item Value Reference Range Interpretation Comments Basophils # (test code 0.0 See_Comment [Aut omated message] The = Basophils #) system which generated this result tra nsmitted reference range : <=0.2. The reference r jamaica was not used to int erpret this result as normal/abnormal . [facility] ClubVtzenscKXKJPUKBHU2559-41-88 12:13:00 Test Item Value Reference Range Interpretation Comments Segs (test code = Segs) 63.5 45.0-75.0 [facility] ClubWmtvtaoHSZPFYUSFG0296-54-36 12:13:00 Test Item Value Reference Range Interpretation Comments Monocytes # (test code 0.3 See_Comment [Aut omated message] The = Monocytes #) system which generated this result tra nsmitted reference range : <=0.8. The reference r jamaica was not used to int erpret this result as normal/abnormal . [facility] ClubDzzwcwhGBVMIRIVHY6517-50-67 12:13:00 Test Item Value Reference Range Interpretation Comments Basophils (test code = 0.2 See_Comment [Aut omated message] The Basophils) system which ge nerated this result tra nsmitted reference range : <=1.0. The reference r jamaica was not used to int erpret this result as normal/abnormal . [facility] ClubGesbzekEIRCFZYZUP3722-25-55 12:13:00 Test Item Value Reference Range Interpretation Comments Lymphocytes # (test code = Lymphocytes 1.5 1.0-5.5 #) [facility] ClubPntbrbvSPMCDEDXFE2251-57-18 12:13:00 Test Item Value Reference Range Interpretation Comments Segs-Bands # (test code = Segs-Bands #) 3.3 1.5-8.1 [facility] ClubGczzkddEGTCSZKEXB0353-37-16 12:13:00 Test Item Value Reference Range Interpretation Comments Eosinophils # (test code 0.1 See_Comment [A utomated message] The = Eosinophils #) system ic h generated this result tra nsmitted reference range : <=0.5. The reference r jamaica was not used to int erpret this result as normal/abnormal . [facility] ClubBhgimmxDZTMDXLMNO7533-51-01 12:13:00 Test Item Value Reference Range Interpretation Comments Lymphocytes (test code = Lymphocytes) 28.9 20.0-40.0 [facility] ClubNhijeqyPYHWIMUFMD7500-50-53 12:13:00 Test Item Value Reference Range Interpretation Comments Monocytes (test code = Monocytes) 6.2 2.0-12.0 [facility] ClubNfeppfqMVUASFABOM5647-89-50 12:13:00 Test Item Value Reference Range Interpretation Comments Eosinophils (test code = 1.2 See_Comment [A utomated message] The Eosinophils) system which ge nerated this result tra nsmitted reference range : <=4.0. The reference r jamaica was not used to int erpret this result as normal/abnormal . [facility] ClubAydpxahUGSLIYINXY1008-51-91 12:13:00 Test Item Value Reference Range Interpretation Comments MCHC (test code = MCHC) 34.3 32.0-36.0 [facility] ClubWajwemzRZLYFGMBGP3313-51-99 12:13:00 Test Item Value Reference Range Interpretation Comments RDW (test code = RDW) 16.5 11.5-14.5 [facility] ClubWzshjunVYBKQVBJPO9842-41-29 12:13:00 Test Item Value Reference Range Interpretation Comments MCH (test code = MCH) 31.5 pg 27.0-31.0 [facility] ClubZjsctzkUMHTALMNWB3636-76-74 12:13:00 Test Item Value Reference Range Interpretation Comments MCV (test code = MCV) 91.9 81.0-99.0 [facility] ClubWqaxwwnGNWWUJRLCC5960-52-68 12:13:00 Test Item Value Reference Range Interpretation Comments Platelet (test code = Platelet) 177 133-450 [facility] ClubMrucvdfAMWDRHZYCE1136-25-93 12:13:00 Test Item Value Reference Range Interpretation Comments MPV (test code = MPV) 7.9 7.4-10.4 [facility]HarsdxjFSKPVEPLXF6052-56-96 12:13:00 Test Item Value Reference Range Interpretation Comments RBC (test code = RBC) 3.91 4.20-5.40 [facility] ClubXmkzeasUYSCASMIVF5560-35-36 12:13:00 Test Item Value Reference Range Interpretation Comments Hct (test code = Hct) 35.9 36.0-48.0 [facility] ClubIqgploeVETOFSOTUY8510-15-10 12:13:00 Test Item Value Reference Range Interpretation Comments Hgb (test code = Hgb) 12.3 12.0-16.0 [facility] ClubLwjufvcDFDXMUEABK7575-79-05 12:13:00 Test Item Value Reference Range Interpretation Comments WBC (test code = WBC) 5.1 3.7-10.4 [facility]2014-05-05 12:13:00 Test Item Value Reference Range Interpretation Comments Magnesium Lvl (test code = Magnesium 1.8 1.8-2.4 Lvl) [facility]2014-05-05 12:13:00 Test Item Value Reference Range Interpretation Comments Phosphorus (test code = Phosphorus) 2.6 2.5-4.5 [facility]2014-05-05 12:13:00 Test Item Value Reference Range Interpretation Comments Globulin (test code = Globulin) 2.8 2.0-4.0 [facility]2014-05-05 12:13:00 Test Item Value Reference Range Interpretation Comments A/G Ratio (test code = A/G Ratio) 1.2 0.7-1.6 [place] 634184-05-05 12:13:00 Test Item Value Reference Range Interpretation Comments B/C Ratio (test code = B/C Ratio) 10 6-25 [facility]2014-05-05 12:13:00 Test Item Value Reference Range Interpretation Comments AGAP (test code = AGAP) 6.9 10.0-20.0 [facility]2014-05-05 12:13:00 Test Item Value Reference Range Interpretation Comments eGFR (test code = eGFR) 101 [facility]2014-05-05 12:13:00 Test Item Value Reference Range Interpretation Comments Glucose Lvl (test code = Glucose Lvl) 84 70-99 [facility]2014-05-05 12:13:00 Test Item Value Reference Range Interpretation Comments Potassium Lvl (test code = Potassium 3.9 3.5-5.1 Lvl) [facility]2014-05-05 12:13:00 Test Item Value Reference Range Interpretation Comments Sodium Lvl (test code = Sodium Lvl) 141 135-145 [facility]2014-05-05 12:13:00 Test Item Value Reference Range Interpretation Comments Creatinine Lvl (test code = Creatinine 0.7 0.5-1.4 Lvl) [facility]2014-05-05 12:13:00 Test Item Value Reference Range Interpretation Comments BUN (test code = BUN) 7 7-22 [place] 634184-05-05 12:13:00 Test Item Value Reference Range Interpretation Comments Bili Total (test code = Bili Total) 0.3 0.2-1.3 [place] 634184-05-05 12:13:00 Test Item Value Reference Range Interpretation Comments Alk Phos (test code = Alk Phos) 71 39-136 [facility]2014-05-05 12:13:00 Test Item Value Reference Range Interpretation Comments AST (test code = AST) 21 See_Comment [Auto mated message] The system which ge nerated this result transmit ulysses reference range : <=37. The reference range was not used to interpr et this result as sharron l/abnormal. [facility]2014-05-05 12:13:00 Test Item Value Reference Range Interpretation Comments ALT (test code = ALT) 20 See_Comment [Auto mated message] The system which ge nerated this result transmit ulysses reference range : <=65. The reference range was not used to interpr et this result as sharron l/abnormal. [facility]2014-05-05 12:13:00 Test Item Value Reference Range Interpretation Comments Total Protein (test code = Total 6.1 6.4-8.4 Protein) [facility]2014-05-05 12:13:00 Test Item Value Reference Range Interpretation Comments CO2 (test code = CO2) 33 24-32 [facility]2014-05-05 12:13:00 Test Item Value Reference Range Interpretation Comments Albumin Lvl (test code = Albumin Lvl) 3.3 3.5-5.0 [facility]2014-05-05 12:13:00 Test Item Value Reference Range Interpretation Comments Calcium Lvl (test code = Calcium Lvl) 8.4 8.5-10.5 [facility]2014-05-05 12:13:00 Test Item Value Reference Range Interpretation Comments Chloride Lvl (test code = Chloride Lvl) 105 95-109 [facility] ClubSpcskgnQEFEOFQGRC5103-48-15 12:13:00 Test Item Value Reference Range Interpretation Comments Basophils # (test code 0.0 See_Comment [Aut omated message] The = Basophils #) system which generated this result tra nsmitted reference range : <=0.2. The reference r jama[place] was not used to int erpret this result as normal/abnormal . [facility] ClubEvdfvjxTJMKDHVPCJ6436-30-17 12:13:00 Test Item Value Reference Range Interpretation Comments Segs (test code = Segs) 63.5 45.0-75.0 [facility] ClubYjzdxppEKYPUHUPQV9411-49-52 12:13:00 Test Item Value Reference Range Interpretation Comments Monocytes # (test code 0.3 See_Comment [Aut omated message] The = Monocytes #) system which generated this result tra nsmitted reference range : <=0.8. The reference r jamaica was not used to int erpret this result as normal/abnormal . [facility] ClubYnspdpgEYBNJRMTDO2109-48-06 12:13:00 Test Item Value Reference Range Interpretation Comments Basophils (test code = 0.2 See_Comment [Aut omated message] The Basophils) system which ge nerated this result tra nsmitted reference range : <=1.0. The reference r jamaica was not used to int erpret this result as normal/abnormal . [facility] ClubUcwnqiuIEVUHLBJZC2865-23-70 12:13:00 Test Item Value Reference Range Interpretation Comments Lymphocytes # (test code = Lymphocytes 1.5 1.0-5.5 #) [facility] ClubZuiksxhAOUUCQDDMI8450-28-13 12:13:00 Test Item Value Reference Range Interpretation Comments Segs-Bands # (test code = Segs-Bands #) 3.3 1.5-8.1 [facility] ClubZxxwguzIAOSZFZSHF5499-65-32 12:13:00 Test Item Value Reference Range Interpretation Comments Eosinophils # (test code 0.1 See_Comment [A utomated message] The = Eosinophils #) system whic h generated this result tra nsmitted reference range : <=0.5. The reference r jamaica was not used to int erpret this result as normal/abnormal . [facility] ClubOwsoxhhPHPCBDWGWQ9415-67-24 12:13:00 Test Item Value Reference Range Interpretation Comments Lymphocytes (test code = Lymphocytes) 28.9 20.0-40.0 [facility] ClubKuayodgEKMYRQSVSX1558-38-91 12:13:00 Test Item Value Reference Range Interpretation Comments Monocytes (test code = Monocytes) 6.2 2.0-12.0 [facility] ClubWuvokxlNRNIWRNXCG2263-00-98 12:13:00 Test Item Value Reference Range Interpretation Comments Eosinophils (test code = 1.2 See_Comment [A utomated message] The Eosinophils) system which ge nerated this result tra nsmitted reference range : <=4.0. The reference r jamaica was not used to int erpret this result as normal/abnormal . [facility] ClubJdoezjlNQNIYJXFHZ7182-88-14 12:13:00 Test Item Value Reference Range Interpretation Comments MCHC (test code = MCHC) 34.3 32.0-36.0 [facility] ClubRqdvpreKOHDRUUYLD8348-28-41 12:13:00 Test Item Value Reference Range Interpretation Comments RDW (test code = RDW) 16.5 11.5-14.5 [facility] ClubKgwbquyBZRPNRZITC2107-23-49 12:13:00 Test Item Value Reference Range Interpretation Comments MCH (test code = MCH) 31.5 pg 27.0-31.0 [facility] ClubYhktaweSTHDFUWWKA5514-78-74 12:13:00 Test Item Value Reference Range Interpretation Comments MCV (test code = MCV) 91.9 81.0-99.0 [facility] ClubCiqkvwsQPIILCTAYY0350-50-18 12:13:00 Test Item Value Reference Range Interpretation Comments Platelet (test code = Platelet) 177 133-450 [facility] ClubYqcuulaMLKYCKXSXA1328-73-81 12:13:00 Test Item Value Reference Range Interpretation Comments MPV (test code = MPV) 7.9 7.4-10.4 [facility] ClubIqcfvezODLVNLJNND8060-39-70 12:13:00 Test Item Value Reference Range Interpretation Comments RBC (test code = RBC) 3.91 4.20-5.40 [facility] ClubBdnuoyfBZKYBNIBZQ4053-97-59 12:13:00 Test Item Value Reference Range Interpretation Comments Hct (test code = Hct) 35.9 36.0-48.0 [facility] ClubYrrfkhwZNZJETQGTS5205-59-78 12:13:00 Test Item Value Reference Range Interpretation Comments Hgb (test code = Hgb) 12.3 12.0-16.0 [facility] ClubSimmopqOMFDDBLFEY3299-41-95 12:13:00 Test Item Value Reference Range Interpretation Comments WBC (test code = WBC) 5.1 3.7-10.4 [facility]2014-05-05 12:13:00 Test Item Value Reference Range Interpretation Comments Magnesium Lvl (test code = Magnesium 1.8 1.8-2.4 Lvl) [facility]2014-05-05 12:13:00 Test Item Value Reference Range Interpretation Comments Phosphorus (test code = Phosphorus) 2.6 2.5-4.5 [facility]2014-05-05 12:13:00 Test Item Value Reference Range Interpretation Comments Globulin (test code = Globulin) 2.8 2.0-4.0 [facility]2014-05-05 12:13:00 Test Item Value Reference Range Interpretation Comments A/G Ratio (test code = A/G Ratio) 1.2 0.7-1.6 [facility]2014-05-05 12:13:00 Test Item Value Reference Range Interpretation Comments B/C Ratio (test code = B/C Ratio) 10 6-25 [facility]2014-05-05 12:13:00 Test Item Value Reference Range Interpretation Comments AGAP (test code = AGAP) 6.9 10.0-20.0 [facility]2014-05-05 12:13:00 Test Item Value Reference Range Interpretation Comments eGFR (test code = eGFR) 101 [facility]2014-05-05 12:13:00 Test Item Value Reference Range Interpretation Comments Glucose Lvl (test code = Glucose Lvl) 84 70-99 [facility]2014-05-05 12:13:00 Test Item Value Reference Range Interpretation Comments Potassium Lvl (test code = Potassium 3.9 3.5-5.1 Lvl) [facility]2014-05-05 12:13:00 Test Item Value Reference Range Interpretation Comments Sodium Lvl (test code = Sodium Lvl) 141 135-145 [facility]2014-05-05 12:13:00 Test Item Value Reference Range Interpretation Comments Creatinine Lvl (test code = Creatinine 0.7 0.5-1.4 Lvl) [facility]2014-05-05 12:13:00 Test Item Value Reference Range Interpretation Comments BUN (test code = BUN) 7 7-22 [place] 634184-05-05 12:13:00 Test Item Value Reference Range Interpretation Comments Bili Total (test code = Bili Total) 0.3 0.2-1.3 [facility]2014-05-05 12:13:00 Test Item Value Reference Range Interpretation Comments Alk Phos (test code = Alk Phos) 71 39-136 [facility]2014-05-05 12:13:00 Test Item Value Reference Range Interpretation Comments AST (test code = AST) 21 See_Comment [Auto mated message] The system which ge nerated this result transmit ulysses reference range : <=37. The reference range was not used to interpr et this result as sharron l/abnormal. [facility]2014-05-05 12:13:00 Test Item Value Reference Range Interpretation Comments ALT (test code = ALT) 20 See_Comment [Auto mated message] The system which ge nerated this result transmit ulysses reference range : <=65. The reference range was not used to interpr et this result as sharron l/abnormal. [facility]2014-05-05 12:13:00 Test Item Value Reference Range Interpretation Comments Total Protein (test code = Total 6.1 6.4-8.4 Protein) [facility]2014-05-05 12:13:00 Test Item Value Reference Range Interpretation Comments CO2 (test code = CO2) 33 24-32 [place] 634184-05-05 12:13:00 Test Item Value Reference Range Interpretation Comments Albumin Lvl (test code = Albumin Lvl) 3.3 3.5-5.0 [facility]2014-05-05 12:13:00 Test Item Value Reference Range Interpretation Comments Calcium Lvl (test code = Calcium Lvl) 8.4 8.5-10.5 [facility]2014-05-05 12:13:00 Test Item Value Reference Range Interpretation Comments Chloride Lvl (test code = Chloride Lvl) 105 95-109 [facility] ClubNzodbdvTKKXDGAYYX6437-01-33 12:13:00 Test Item Value Reference Range Interpretation Comments Basophils # (test code 0.0 See_Comment [Aut omated message] The = Basophils #) system which generated this result tra nsmitted reference range : <=0.2. The reference r jamaica was not used to int erpret this result as normal/abnormal . [facility] ClubRdwefcjJGOCAMRZAL5404-03-83 12:13:00 Test Item Value Reference Range Interpretation Comments Segs (test code = Segs) 63.5 45.0-75.0 [facility] ClubAdzbldeWZRPNJYUFL6433-44-71 12:13:00 Test Item Value Reference Range Interpretation Comments Monocytes # (test code 0.3 See_Comment [Aut omated message] The = Monocytes #) system which generated this result tra nsmitted reference range : <=0.8. The reference r jamaica was not used to int erpret this result as normal/abnormal . [facility] ClubYszbcezZHXRASELCK0234-05-02 12:13:00 Test Item Value Reference Range Interpretation Comments Basophils (test code = 0.2 See_Comment [Aut omated message] The Basophils) system which ge nerated this result tra nsmitted reference range : <=1.0. The reference r jamaica was not used to int erpret this result as normal/abnormal . [facility] ClubNpddihbHZURDBCNXE9350-20-62 12:13:00 Test Item Value Reference Range Interpretation Comments Lymphocytes # (test code = Lymphocytes 1.5 1.0-5.5 #) [facility] ClubKbixcxnDLFCMCHGDM7647-52-58 12:13:00 Test Item Value Reference Range Interpretation Comments Segs-Bands # (test code = Segs-Bands #) 3.3 1.5-8.1 [facility] ClubZmmwodoGIHABMXGYS8671-17-31 12:13:00 Test Item Value Reference Range Interpretation Comments Eosinophils # (test code 0.1 See_Comment [A utomated message] The = Eosinophils #) system wh h generated this result tra nsmitted reference range : <=0.5. The reference r jamaica was not used to int erpret this result as normal/abnormal . [facility] ClubXmbtlfsHTOVBICCLK5145-01-49 12:13:00 Test Item Value Reference Range Interpretation Comments Lymphocytes (test code = Lymphocytes) 28.9 20.0-40.0 [facility] ClubRlwcxvtRPCOTVSCKS6243-64-50 12:13:00 Test Item Value Reference Range Interpretation Comments Monocytes (test code = Monocytes) 6.2 2.0-12.0 [facility] ClubZpdwpuzRQZYWRDDVH8224-13-41 12:13:00 Test Item Value Reference Range Interpretation Comments Eosinophils (test code = 1.2 See_Comment [A utomated message] The Eosinophils) system which ge nerated this result tra nsmitted reference range : <=4.0. The reference r jamaica was not used to int erpret this result as normal/abnormal . [facility] ClubLinshytBYESTVVBJB9014-33-53 12:13:00 Test Item Value Reference Range Interpretation Comments MCHC (test code = MCHC) 34.3 32.0-36.0 [facility] ClubCtobpkcKZYZYRHSAK0900-48-40 12:13:00 Test Item Value Reference Range Interpretation Comments RDW (test code = RDW) 16.5 11.5-14.5 [facility] ClubVzdtwwfXXVWQIKJND5529-62-22 12:13:00 Test Item Value Reference Range Interpretation Comments MCH (test code = MCH) 31.5 pg 27.0-31.0 [facility] ClubOpfqlxcBQXMZHSEMN2639-92-49 12:13:00 Test Item Value Reference Range Interpretation Comments MCV (test code = MCV) 91.9 81.0-99.0 [facility] ClubZsyceimGEHGVHKLDF6883-62-46 12:13:00 Test Item Value Reference Range Interpretation Comments Platelet (test code = Platelet) 177 133-450 [facility] ClubEapgmkmTBWJLFJEYC1110-59-94 12:13:00 Test Item Value Reference Range Interpretation Comments MPV (test code = MPV) 7.9 7.4-10.4 [facility] ClubRpatpnqTTZJYVVKZE0453-90-02 12:13:00 Test Item Value Reference Range Interpretation Comments RBC (test code = RBC) 3.91 4.20-5.40 [facility] ClubPnfychkVXWJIBRFGU3509-22-00 12:13:00 Test Item Value Reference Range Interpretation Comments Hct (test code = Hct) 35.9 36.0-48.0 [facility] ClubHbknghaRBDKNEYADM3858-63-98 12:13:00 Test Item Value Reference Range Interpretation Comments Hgb (test code = Hgb) 12.3 12.0-16.0 [facility] ClubCggselzCLAWEDAWMJ3892-82-48 12:13:00 Test Item Value Reference Range Interpretation Comments WBC (test code = WBC) 5.1 3.7-10.4 [facility]2014-05-05 12:13:00 Test Item Value Reference Range Interpretation Comments Magnesium Lvl (test code = Magnesium 1.8 1.8-2.4 Lvl) [facility]2014-05-05 12:13:00 Test Item Value Reference Range Interpretation Comments Phosphorus (test code = Phosphorus) 2.6 2.5-4.5 [facility]2014-05-05 12:13:00 Test Item Value Reference Range Interpretation Comments Globulin (test code = Globulin) 2.8 2.0-4.0 [facility]2014-05-05 12:13:00 Test Item Value Reference Range Interpretation Comments A/G Ratio (test code = A/G Ratio) 1.2 0.7-1.6 [place] 634184-05-05 12:13:00 Test Item Value Reference Range Interpretation Comments B/C Ratio (test code = B/C Ratio) 10 6-25 [place] 634184-05-05 12:13:00 Test Item Value Reference Range Interpretation Comments AGAP (test code = AGAP) 6.9 10.0-20.0 [place] 634184-05-05 12:13:00 Test Item Value Reference Range Interpretation Comments eGFR (test code = eGFR) 101 [facility]2014-05-05 12:13:00 Test Item Value Reference Range Interpretation Comments Glucose Lvl (test code = Glucose Lvl) 84 70-99 [facility]2014-05-05 12:13:00 Test Item Value Reference Range Interpretation Comments Potassium Lvl (test code = Potassium 3.9 3.5-5.1 Lvl) [place] 634184-05-05 12:13:00 Test Item Value Reference Range Interpretation Comments Sodium Lvl (test code = Sodium Lvl) 141 135-145 [place] 634184-05-05 12:13:00 Test Item Value Reference Range Interpretation Comments Creatinine Lvl (test code = Creatinine 0.7 0.5-1.4 Lvl) [facility]2014-05-05 12:13:00 Test Item Value Reference Range Interpretation Comments BUN (test code = BUN) 7 7-22 [place] 634184-05-05 12:13:00 Test Item Value Reference Range Interpretation Comments Bili Total (test code = Bili Total) 0.3 0.2-1.3 [facility]2014-05-05 12:13:00 Test Item Value Reference Range Interpretation Comments Alk Phos (test code = Alk Phos) 71 39-136 [facility]2014-05-05 12:13:00 Test Item Value Reference Range Interpretation Comments AST (test code = AST) 21 See_Comment [Auto mated message] The system which ge nerated this result transmit ulysses reference range : <=37. The reference range was not used to interpr et this result as sharron l/abnormal. [facility]2014-05-05 12:13:00 Test Item Value Reference Range Interpretation Comments ALT (test code = ALT) 20 See_Comment [Auto mated message] The system which ge nerated this result transmit ulysses reference range : <=65. The reference range was not used to interpr et this result as sharron l/abnormal. [facility]2014-05-05 12:13:00 Test Item Value Reference Range Interpretation Comments Total Protein (test code = Total 6.1 6.4-8.4 Protein) [facility]2014-05-05 12:13:00 Test Item Value Reference Range Interpretation Comments CO2 (test code = CO2) 33 24-32 [place] 634184-05-05 12:13:00 Test Item Value Reference Range Interpretation Comments Albumin Lvl (test code = Albumin Lvl) 3.3 3.5-5.0 [facility]2014-05-05 12:13:00 Test Item Value Reference Range Interpretation Comments Calcium Lvl (test code = Calcium Lvl) 8.4 8.5-10.5 [facility]2014-05-05 12:13:00 Test Item Value Reference Range Interpretation Comments Chloride Lvl (test code = Chloride Lvl) 105 95-109 [facility] ClubAptedrdLAMANZLTNM2015-58-80 12:13:00 Test Item Value Reference Range Interpretation Comments Basophils # (test code 0.0 See_Comment [Aut omated message] The = Basophils #) system which generated this result tra nsmitted reference range : <=0.2. The reference r jamaica was not used to int erpret this result as normal/abnormal . [facility] ClubKlsefuqSOZGDBTSAD3514-04-69 12:13:00 Test Item Value Reference Range Interpretation Comments Segs (test code = Segs) 63.5 45.0-75.0 [facility] ClubDdtcztoDCQGWRWWTN4583-89-52 12:13:00 Test Item Value Reference Range Interpretation Comments Monocytes # (test code 0.3 See_Comment [Aut omated message] The = Monocytes #) system which generated this result tra nsmitted reference range : <=0.8. The reference r jamaica was not used to int erpret this result as normal/abnormal . [facility] ClubIobkwciYKAVJRDWBY5655-22-67 12:13:00 Test Item Value Reference Range Interpretation Comments Basophils (test code = 0.2 See_Comment [Aut omated message] The Basophils) system which ge nerated this result tra nsmitted reference range : <=1.0. The reference r jamaica was not used to int erpret this result as normal/abnormal . [facility] ClubQikfmecIHKCPTPMIQ7183-33-58 12:13:00 Test Item Value Reference Range Interpretation Comments Lymphocytes # (test code = Lymphocytes 1.5 1.0-5.5 #) [facility] ClubLswszxzGKQHCCXWRV6001-24-57 12:13:00 Test Item Value Reference Range Interpretation Comments Segs-Bands # (test code = Segs-Bands #) 3.3 1.5-8.1 [facility] ClubFxahuvtFTUVJPIKPW5730-85-16 12:13:00 Test Item Value Reference Range Interpretation Comments Eosinophils # (test code 0.1 See_Comment [A utomated message] The = Eosinophils #) system whic h generated this result tra nsmitted reference range : <=0.5. The reference r jamaica was not used to int erpret this result as normal/abnormal . [facility] ClubPkynploZOIJEKLTJN9883-32-79 12:13:00 Test Item Value Reference Range Interpretation Comments Lymphocytes (test code = Lymphocytes) 28.9 20.0-40.0 [facility] ClubXeyzairNTJPGMQHJD4110-99-57 12:13:00 Test Item Value Reference Range Interpretation Comments Monocytes (test code = Monocytes) 6.2 2.0-12.0 [facility] ClubDxnoksrRFGOCFWZMK9232-86-33 12:13:00 Test Item Value Reference Range Interpretation Comments Eosinophils (test code = 1.2 See_Comment [A utomated message] The Eosinophils) system which ge nerated this result tra nsmitted reference range : <=4.0. The reference r jamaica was not used to int erpret this result as normal/abnormal . [facility] ClubLpcpinbRTEBLOMTNU3535-47-91 12:13:00 Test Item Value Reference Range Interpretation Comments MCHC (test code = MCHC) 34.3 32.0-36.0 [facility] ClubIsdbzejHMTBHRBSYD9986-36-67 12:13:00 Test Item Value Reference Range Interpretation Comments RDW (test code = RDW) 16.5 11.5-14.5 [facility] ClubBndsixhRLABEZIWHH0405-04-81 12:13:00 Test Item Value Reference Range Interpretation Comments MCH (test code = MCH) 31.5 pg 27.0-31.0 [facility] ClubPqkltfgCHIZWCXVTX7888-30-91 12:13:00 Test Item Value Reference Range Interpretation Comments MCV (test code = MCV) 91.9 81.0-99.0 [facility] ClubEdknfoyBBFEPRDAPU5694-66-94 12:13:00 Test Item Value Reference Range Interpretation Comments Platelet (test code = Platelet) 177 133-450 [facility] ClubQayfniuYKKCHYJVND0285-85-03 12:13:00 Test Item Value Reference Range Interpretation Comments MPV (test code = MPV) 7.9 7.4-10.4 [facility] ClubAoqkuevTBVUYXSBMU5128-96-25 12:13:00 Test Item Value Reference Range Interpretation Comments RBC (test code = RBC) 3.91 4.20-5.40 [facility] ClubSwoiaihHRSESMCRBA5587-73-48 12:13:00 Test Item Value Reference Range Interpretation Comments Hct (test code = Hct) 35.9 36.0-48.0 [facility] ClubRlbitzdSJIEKEPTHD1110-44-84 12:13:00 Test Item Value Reference Range Interpretation Comments Hgb (test code = Hgb) 12.3 12.0-16.0 [facility] ClubJfkkuutUUKZQOYIFN8008-58-23 12:13:00 Test Item Value Reference Range Interpretation Comments WBC (test code = WBC) 5.1 3.7-10.4 [facility]2014-05-05 12:13:00 Test Item Value Reference Range Interpretation Comments Magnesium Lvl (test code = Magnesium 1.8 1.8-2.4 Lvl) [facility]2014-05-05 12:13:00 Test Item Value Reference Range Interpretation Comments Phosphorus (test code = Phosphorus) 2.6 2.5-4.5 [facility]2014-05-05 12:13:00 Test Item Value Reference Range Interpretation Comments Globulin (test code = Globulin) 2.8 2.0-4.0 [facility]2014-05-05 12:13:00 Test Item Value Reference Range Interpretation Comments A/G Ratio (test code = A/G Ratio) 1.2 0.7-1.6 [facility]2014-05-05 12:13:00 Test Item Value Reference Range Interpretation Comments B/C Ratio (test code = B/C Ratio) 10 6-25 [facility]2014-05-05 12:13:00 Test Item Value Reference Range Interpretation Comments AGAP (test code = AGAP) 6.9 10.0-20.0 [facility]2014-05-05 12:13:00 Test Item Value Reference Range Interpretation Comments eGFR (test code = eGFR) 101 [facility]2014-05-05 12:13:00 Test Item Value Reference Range Interpretation Comments Glucose Lvl (test code = Glucose Lvl) 84 70-99 [facility]2014-05-05 12:13:00 Test Item Value Reference Range Interpretation Comments Potassium Lvl (test code = Potassium 3.9 3.5-5.1 Lvl) [facility]2014-05-05 12:13:00 Test Item Value Reference Range Interpretation Comments Sodium Lvl (test code = Sodium Lvl) 141 135-145 [facility]2014-05-05 12:13:00 Test Item Value Reference Range Interpretation Comments Creatinine Lvl (test code = Creatinine 0.7 0.5-1.4 Lvl) [facility]2014-05-05 12:13:00 Test Item Value Reference Range Interpretation Comments BUN (test code = BUN) 7 7-22 [place]34184-05-05 12:13:00 Test Item Value Reference Range Interpretation Comments Bili Total (test code = Bili Total) 0.3 0.2-1.3 [place]34184-05-05 12:13:00 Test Item Value Reference Range Interpretation Comments Alk Phos (test code = Alk Phos) 71 39-136 [facility]2014-05-05 12:13:00 Test Item Value Reference Range Interpretation Comments AST (test code = AST) 21 See_Comment [Auto mated message] The system which ge nerated this result transmit ulysses reference range : <=37. The reference range was not used to interpr et this result as sharron l/abnormal. [place]34184-05-05 12:13:00 Test Item Value Reference Range Interpretation Comments ALT (test code = ALT) 20 See_Comment [Auto mated message] The system which ge nerated this result transmit ulysses reference range : <=65. The reference range was not used to interpr et this result as sharron l/abnormal. [facility]2014-05-05 12:13:00 Test Item Value Reference Range Interpretation Comments Total Protein (test code = Total 6.1 6.4-8.4 Protein) [facility]2014-05-05 12:13:00 Test Item Value Reference Range Interpretation Comments CO2 (test code = CO2) 33 24-32 [facility]2014-05-05 12:13:00 Test Item Value Reference Range Interpretation Comments Albumin Lvl (test code = Albumin Lvl) 3.3 3.5-5.0 [facility]2014-05-05 12:13:00 Test Item Value Reference Range Interpretation Comments Calcium Lvl (test code = Calcium Lvl) 8.4 8.5-10.5 [facility]2014-05-05 12:13:00 Test Item Value Reference Range Interpretation Comments Chloride Lvl (test code = Chloride Lvl) 105 95-109 [facility] ClubIpgpfsnPKOCITFITE4873-97-41 12:13:00 Test Item Value Reference Range Interpretation Comments Basophils # (test code 0.0 See_Comment [Aut omated message] The = Basophils #) system which generated this result tra nsmitted reference range : <=0.2. The reference r jamaica was not used to int erpret this result as normal/abnormal . [facility] ClubCnovzlyYNXXVAHXML3989-89-18 12:13:00 Test Item Value Reference Range Interpretation Comments Segs (test code = Segs) 63.5 45.0-75.0 [facility] ClubFismqrwZGOCVTMOFR5134-48-03 12:13:00 Test Item Value Reference Range Interpretation Comments Monocytes # (test code 0.3 See_Comment [Aut omated message] The = Monocytes #) system which generated this result tra nsmitted reference range : <=0.8. The reference r jamaica was not used to int erpret this result as normal/abnormal . [facility] ClubSqyokdeWZCXDNILDV8846-24-39 12:13:00 Test Item Value Reference Range Interpretation Comments Basophils (test code = 0.2 See_Comment [Aut omated message] The Basophils) system which ge nerated this result tra nsmitted reference range : <=1.0. The reference r jamaica was not used to int erpret this result as normal/abnormal . [facility] ClubMqzupmpRBUQVQYEZA8291-98-57 12:13:00 Test Item Value Reference Range Interpretation Comments Lymphocytes # (test code = Lymphocytes 1.5 1.0-5.5 #) [facility] ClubUywqkaaTSMUUNZPTI2965-21-02 12:13:00 Test Item Value Reference Range Interpretation Comments Segs-Bands # (test code = Segs-Bands #) 3.3 1.5-8.1 [facility] ClubJqpnqywIEBRPAMIJZ9636-19-97 12:13:00 Test Item Value Reference Range Interpretation Comments Eosinophils # (test code 0.1 See_Comment [A utomated message] The = Eosinophils #) system whic h generated this result tra nsmitted reference range : <=0.5. The reference r jamaica was not used to int erpret this result as normal/abnormal . [facility] ClubFpjpcvxELFWGLLGXH0173-12-21 12:13:00 Test Item Value Reference Range Interpretation Comments Lymphocytes (test code = Lymphocytes) 28.9 20.0-40.0 [facility] ClubNzwydhjWHRELJJKKV4077-44-61 12:13:00 Test Item Value Reference Range Interpretation Comments Monocytes (test code = Monocytes) 6.2 2.0-12.0 [facility] ClubKfdoskzRAWAJPNDQW8958-80-56 12:13:00 Test Item Value Reference Range Interpretation Comments Eosinophils (test code = 1.2 See_Comment [A utomated message] The Eosinophils) system which ge nerated this result tra nsmitted reference range : <=4.0. The reference r jamaica was not used to int erpret this result as normal/abnormal . [facility] ClubJbwtpjtTBNGZXCUVT0621-11-67 12:13:00 Test Item Value Reference Range Interpretation Comments MCHC (test code = MCHC) 34.3 32.0-36.0 [facility] ClubAyzwtmtRHLCNHDIGZ9423-48-18 12:13:00 Test Item Value Reference Range Interpretation Comments RDW (test code = RDW) 16.5 11.5-14.5 [facility] ClubUrhfmhzIIOKGTCISV7173-85-89 12:13:00 Test Item Value Reference Range Interpretation Comments MCH (test code = MCH) 31.5 pg 27.0-31.0 [facility] ClubEoshxjoCEWWLCIFJU8293-64-72 12:13:00 Test Item Value Reference Range Interpretation Comments MCV (test code = MCV) 91.9 81.0-99.0 [facility] ClubWxadekqGVHRFZZLJN7247-62-48 12:13:00 Test Item Value Reference Range Interpretation Comments Platelet (test code = Platelet) 177 133-450 [facility] ClubRthssobQOVJIXTMCH4529-02-40 12:13:00 Test Item Value Reference Range Interpretation Comments MPV (test code = MPV) 7.9 7.4-10.4 [facility] ClubPtqspdfQVDEVNNIAT0484-02-29 12:13:00 Test Item Value Reference Range Interpretation Comments RBC (test code = RBC) 3.91 4.20-5.40 [facility] ClubDnxdcdkFIANUZKZTZ5201-06-45 12:13:00 Test Item Value Reference Range Interpretation Comments Hct (test code = Hct) 35.9 36.0-48.0 [facility] ClubMgnvthyDLWBREZNKX9098-69-98 12:13:00 Test Item Value Reference Range Interpretation Comments Hgb (test code = Hgb) 12.3 12.0-16.0 [facility] ClubZwacgzcOHLPSORXRJ5578-57-83 12:13:00 Test Item Value Reference Range Interpretation Comments WBC (test code = WBC) 5.1 3.7-10.4 [facility]2014-05-05 12:13:00 Test Item Value Reference Range Interpretation Comments Magnesium Lvl (test code = Magnesium 1.8 1.8-2.4 Lvl) [facility]2014-05-05 12:13:00 Test Item Value Reference Range Interpretation Comments Phosphorus (test code = Phosphorus) 2.6 2.5-4.5 [facility]2014-05-05 12:13:00 Test Item Value Reference Range Interpretation Comments Globulin (test code = Globulin) 2.8 2.0-4.0 [facility]2014-05-05 12:13:00 Test Item Value Reference Range Interpretation Comments A/G Ratio (test code = A/G Ratio) 1.2 0.7-1.6 [facility]2014-05-05 12:13:00 Test Item Value Reference Range Interpretation Comments B/C Ratio (test code = B/C Ratio) 10 6-25 [facility]2014-05-05 12:13:00 Test Item Value Reference Range Interpretation Comments AGAP (test code = AGAP) 6.9 10.0-20.0 [facility]2014-05-05 12:13:00 Test Item Value Reference Range Interpretation Comments eGFR (test code = eGFR) 101 [facility]2014-05-05 12:13:00 Test Item Value Reference Range Interpretation Comments Glucose Lvl (test code = Glucose Lvl) 84 70-99 [facility]2014-05-05 12:13:00 Test Item Value Reference Range Interpretation Comments Potassium Lvl (test code = Potassium 3.9 3.5-5.1 Lvl) [facility]2014-05-05 12:13:00 Test Item Value Reference Range Interpretation Comments Sodium Lvl (test code = Sodium Lvl) 141 135-145 [facility]2014-05-05 12:13:00 Test Item Value Reference Range Interpretation Comments Creatinine Lvl (test code = Creatinine 0.7 0.5-1.4 Lvl) [facility]2014-05-05 12:13:00 Test Item Value Reference Range Interpretation Comments BUN (test code = BUN) 7 7-22 [place] 634184-05-05 12:13:00 Test Item Value Reference Range Interpretation Comments Bili Total (test code = Bili Total) 0.3 0.2-1.3 [place] 634184-05-05 12:13:00 Test Item Value Reference Range Interpretation Comments Alk Phos (test code = Alk Phos) 71 39-136 [place] 634184-05-05 12:13:00 Test Item Value Reference Range Interpretation Comments AST (test code = AST) 21 See_Comment [Auto mated message] The system which ge nerated this result transmit ulysses reference range : <=37. The reference range was not used to interpr et this result as sharron l/abnormal. [place]34184-05-05 12:13:00 Test Item Value Reference Range Interpretation Comments ALT (test code = ALT) 20 See_Comment [Auto mated message] The system which ge nerated this result transmit ulysses reference range : <=65. The reference range was not used to interpr et this result as sharron l/abnormal. [place]34184-05-05 12:13:00 Test Item Value Reference Range Interpretation Comments Total Protein (test code = Total 6.1 6.4-8.4 Protein) [place]34184-05-05 12:13:00 Test Item Value Reference Range Interpretation Comments CO2 (test code = CO2) 33 24-32 [facility]2014-05-05 12:13:00 Test Item Value Reference Range Interpretation Comments Albumin Lvl (test code = Albumin Lvl) 3.3 3.5-5.0 [facility]2014-05-05 12:13:00 Test Item Value Reference Range Interpretation Comments Calcium Lvl (test code = Calcium Lvl) 8.4 8.5-10.5 [facility]2014-05-05 12:13:00 Test Item Value Reference Range Interpretation Comments Chloride Lvl (test code = Chloride Lvl) 105 95-109 [facility] ClubJeuubayWXWQZPCPZE5300-86-52 12:13:00 Test Item Value Reference Range Interpretation Comments Basophils # (test code 0.0 See_Comment [Aut omated message] The = Basophils #) system which generated this result tra nsmitted reference range : <=0.2. The reference r jamaica was not used to int erpret this result as normal/abnormal . [facility] ClubMkckjxpSDEFDUTZNE1703-71-02 12:13:00 Test Item Value Reference Range Interpretation Comments Segs (test code = Segs) 63.5 45.0-75.0 [facility] ClubDomrefjERCLZZUGNZ0522-62-17 12:13:00 Test Item Value Reference Range Interpretation Comments Monocytes # (test code 0.3 See_Comment [Aut omated message] The = Monocytes #) system which generated this result tra nsmitted reference range : <=0.8. The reference r jamaica was not used to int erpret this result as normal/abnormal . [facility] ClubZjwxtsqTIDKQBUYWJ5049-74-11 12:13:00 Test Item Value Reference Range Interpretation Comments Basophils (test code = 0.2 See_Comment [Aut omated message] The Basophils) system which ge nerated this result tra nsmitted reference range : <=1.0. The reference r jamaica was not used to int erpret this result as normal/abnormal . [facility] ClubYbtmknhDTFJYGDHCS6120-18-12 12:13:00 Test Item Value Reference Range Interpretation Comments Lymphocytes # (test code = Lymphocytes 1.5 1.0-5.5 #) [facility] ClubImdxybuLGJFQDILPN8361-03-70 12:13:00 Test Item Value Reference Range Interpretation Comments Segs-Bands # (test code = Segs-Bands #) 3.3 1.5-8.1 [facility] ClubZlfzuwhPSMQDKGPTA6865-22-73 12:13:00 Test Item Value Reference Range Interpretation Comments Eosinophils # (test code 0.1 See_Comment [A utomated message] The = Eosinophils #) system whic h generated this result tra nsmitted reference range : <=0.5. The reference r jamaica was not used to int erpret this result as normal/abnormal . [facility] ClubPdlhajoFJXRGAKCGT2488-52-59 12:13:00 Test Item Value Reference Range Interpretation Comments Lymphocytes (test code = Lymphocytes) 28.9 20.0-40.0 [facility] ClubIhgmbioKTSLSUDJPF6523-83-38 12:13:00 Test Item Value Reference Range Interpretation Comments Monocytes (test code = Monocytes) 6.2 2.0-12.0 [facility] ClubMbrkgjyBHABSBPUXW4633-52-26 12:13:00 Test Item Value Reference Range Interpretation Comments Eosinophils (test code = 1.2 See_Comment [A utomated message] The Eosinophils) system which ge nerated this result tra nsmitted reference range : <=4.0. The reference r jamaica was not used to int erpret this result as normal/abnormal . [facility] ClubYxbkahwMNIFZVFPVI3367-83-81 12:13:00 Test Item Value Reference Range Interpretation Comments MCHC (test code = MCHC) 34.3 32.0-36.0 [facility] ClubEesyoelNYIDDYGDKO7394-10-88 12:13:00 Test Item Value Reference Range Interpretation Comments RDW (test code = RDW) 16.5 11.5-14.5 [facility] ClubWpwwyjzDSVBTBEZZP3785-82-50 12:13:00 Test Item Value Reference Range Interpretation Comments MCH (test code = MCH) 31.5 pg 27.0-31.0 [facility] ClubLrfmnzsTRECZVAIVR1756-85-75 12:13:00 Test Item Value Reference Range Interpretation Comments MCV (test code = MCV) 91.9 81.0-99.0 [facility] ClubAmwxdoyQQIJGAFAFT2764-19-51 12:13:00 Test Item Value Reference Range Interpretation Comments Platelet (test code = Platelet) 177 133-450 [facility] ClubTkrnmhiKNIVOSJZPY1545-42-64 12:13:00 Test Item Value Reference Range Interpretation Comments MPV (test code = MPV) 7.9 7.4-10.4 [facility] ClubCobbpozLZNWMVCUDT8663-43-68 12:13:00 Test Item Value Reference Range Interpretation Comments RBC (test code = RBC) 3.91 4.20-5.40 [facility] ClubWvuesziBFUCUNJZRS2167-85-20 12:13:00 Test Item Value Reference Range Interpretation Comments Hct (test code = Hct) 35.9 36.0-48.0 [facility] ClubWqhfauwZHFAMDNMRK3897-52-80 12:13:00 Test Item Value Reference Range Interpretation Comments Hgb (test code = Hgb) 12.3 12.0-16.0 [facility] ClubQyrbabiPWOQMAICEU9262-21-00 12:13:00 Test Item Value Reference Range Interpretation Comments WBC (test code = WBC) 5.1 3.7-10.4 [facility]2014-05-05 12:13:00 Test Item Value Reference Range Interpretation Comments Magnesium Lvl (test code = Magnesium 1.8 1.8-2.4 Lvl) [facility]2014-05-05 12:13:00 Test Item Value Reference Range Interpretation Comments Phosphorus (test code = Phosphorus) 2.6 2.5-4.5 [facility]2014-05-05 12:13:00 Test Item Value Reference Range Interpretation Comments Globulin (test code = Globulin) 2.8 2.0-4.0 [facility]2014-05-05 12:13:00 Test Item Value Reference Range Interpretation Comments A/G Ratio (test code = A/G Ratio) 1.2 0.7-1.6 [facility]2014-05-05 12:13:00 Test Item Value Reference Range Interpretation Comments B/C Ratio (test code = B/C Ratio) 10 6-25 [facility]2014-05-05 12:13:00 Test Item Value Reference Range Interpretation Comments AGAP (test code = AGAP) 6.9 10.0-20.0 [facility]2014-05-05 12:13:00 Test Item Value Reference Range Interpretation Comments eGFR (test code = eGFR) 101 [facility]2014-05-05 12:13:00 Test Item Value Reference Range Interpretation Comments Glucose Lvl (test code = Glucose Lvl) 84 70-99 [facility]2014-05-05 12:13:00 Test Item Value Reference Range Interpretation Comments Potassium Lvl (test code = Potassium 3.9 3.5-5.1 Lvl) [facility]2014-05-05 12:13:00 Test Item Value Reference Range Interpretation Comments Sodium Lvl (test code = Sodium Lvl) 141 135-145 [facility]2014-05-05 12:13:00 Test Item Value Reference Range Interpretation Comments Creatinine Lvl (test code = Creatinine 0.7 0.5-1.4 Lvl) [facility]2014-05-05 12:13:00 Test Item Value Reference Range Interpretation Comments BUN (test code = BUN) 7 7-22 [place] 634184-05-05 12:13:00 Test Item Value Reference Range Interpretation Comments Bili Total (test code = Bili Total) 0.3 0.2-1.3 [place]34184-05-05 12:13:00 Test Item Value Reference Range Interpretation Comments Alk Phos (test code = Alk Phos) 71 39-136 [place]34184-05-05 12:13:00 Test Item Value Reference Range Interpretation Comments AST (test code = AST) 21 See_Comment [Auto mated message] The system which ge nerated this result transmit ulysses reference range : <=37. The reference range was not used to interpr et this result as sharron l/abnormal. [place]34184-05-05 12:13:00 Test Item Value Reference Range Interpretation Comments ALT (test code = ALT) 20 See_Comment [Auto mated message] The system which ge nerated this result transmit ulysses reference range : <=65. The reference range was not used to interpr et this result as sharron l/abnormal. [facility]2014-05-05 12:13:00 Test Item Value Reference Range Interpretation Comments Total Protein (test code = Total 6.1 6.4-8.4 Protein) [facility]2014-05-05 12:13:00 Test Item Value Reference Range Interpretation Comments CO2 (test code = CO2) 33 24-32 [place] 634184-05-05 12:13:00 Test Item Value Reference Range Interpretation Comments Albumin Lvl (test code = Albumin Lvl) 3.3 3.5-5.0 [facility]2014-05-05 12:13:00 Test Item Value Reference Range Interpretation Comments Calcium Lvl (test code = Calcium Lvl) 8.4 8.5-10.5 [facility]2014-05-05 12:13:00 Test Item Value Reference Range Interpretation Comments Chloride Lvl (test code = Chloride Lvl) 105 95-109 [facility] ClubWqlinxnDXXGKRBCGW7607-50-91 12:13:00 Test Item Value Reference Range Interpretation Comments Basophils # (test code 0.0 See_Comment [Aut omated message] The = Basophils #) system which generated this result tra nsmitted reference range : <=0.2. The reference r jamaica was not used to int erpret this result as normal/abnormal . [facility] ClubHbgkkphHXHXCZVJQY2715-38-01 12:13:00 Test Item Value Reference Range Interpretation Comments Segs (test code = Segs) 63.5 45.0-75.0 [facility] ClubGehtxqkEYAYFGQHPE8271-61-35 12:13:00 Test Item Value Reference Range Interpretation Comments Monocytes # (test code 0.3 See_Comment [Aut omated message] The = Monocytes #) system which generated this result tra nsmitted reference range : <=0.8. The reference r jamaica was not used to int erpret this result as normal/abnormal . [facility] ClubHrlkxsqDVMGFONTAG6600-08-81 12:13:00 Test Item Value Reference Range Interpretation Comments Basophils (test code = 0.2 See_Comment [Aut omated message] The Basophils) system which ge nerated this result tra nsmitted reference range : <=1.0. The reference r jamaica was not used to int erpret this result as normal/abnormal . [facility] ClubPssfraeWPSCEVPMVL8610-38-02 12:13:00 Test Item Value Reference Range Interpretation Comments Lymphocytes # (test code = Lymphocytes 1.5 1.0-5.5 #) [facility] ClubZhsfvyhOGHWFIIDWM0077-85-21 12:13:00 Test Item Value Reference Range Interpretation Comments Segs-Bands # (test code = Segs-Bands #) 3.3 1.5-8.1 [facility] ClubZvhpvsgYFRMPXXPPS3156-89-05 12:13:00 Test Item Value Reference Range Interpretation Comments Eosinophils # (test code 0.1 See_Comment [A utomated message] The = Eosinophils #) system whic h generated this result tra nsmitted reference range : <=0.5. The reference r jamaica was not used to int erpret this result as normal/abnormal . [facility] ClubZeinbeoFDCAXNTBLX4140-77-93 12:13:00 Test Item Value Reference Range Interpretation Comments Lymphocytes (test code = Lymphocytes) 28.9 20.0-40.0 [facility] ClubCbqswrgJGTOEEWSAE4085-80-82 12:13:00 Test Item Value Reference Range Interpretation Comments Monocytes (test code = Monocytes) 6.2 2.0-12.0 [facility] ClubOcsissmTZLWIZKUGU7399-16-54 12:13:00 Test Item Value Reference Range Interpretation Comments Eosinophils (test code = 1.2 See_Comment [A utomated message] The Eosinophils) system which ge nerated this result tra nsmitted reference range : <=4.0. The reference r jamaica was not used to int erpret this result as normal/abnormal . [facility] ClubZahkcmgKTXGJPKQZT5971-08-48 12:13:00 Test Item Value Reference Range Interpretation Comments MCHC (test code = MCHC) 34.3 32.0-36.0 [facility] ClubAufgrbhQNUAYPMGAL7477-04-33 12:13:00 Test Item Value Reference Range Interpretation Comments RDW (test code = RDW) 16.5 11.5-14.5 [facility] ClubCvnwzcpWKXIGVWPGG5512-82-53 12:13:00 Test Item Value Reference Range Interpretation Comments MCH (test code = MCH) 31.5 pg 27.0-31.0 [facility] ClubExikwhdKYGHYKMGPS5963-49-46 12:13:00 Test Item Value Reference Range Interpretation Comments MCV (test code = MCV) 91.9 81.0-99.0 [facility] ClubWlwdiguYBPZLJXASR3387-17-18 12:13:00 Test Item Value Reference Range Interpretation Comments Platelet (test code = Platelet) 177 133-450 [facility] ClubIjcexudLKIOKOSZDM5028-05-44 12:13:00 Test Item Value Reference Range Interpretation Comments MPV (test code = MPV) 7.9 7.4-10.4 [facility] ClubMnagbccAKFETEPYGJ7321-67-50 12:13:00 Test Item Value Reference Range Interpretation Comments RBC (test code = RBC) 3.91 4.20-5.40 [facility] ClubBamnakpWCUEDYQUTR3850-95-72 12:13:00 Test Item Value Reference Range Interpretation Comments Hct (test code = Hct) 35.9 36.0-48.0 [facility] ClubVqireokMXWEEHBZAR2856-39-53 12:13:00 Test Item Value Reference Range Interpretation Comments Hgb (test code = Hgb) 12.3 12.0-16.0 [facility] ClubWmemxbcZRAGYYMUHH6167-07-78 12:13:00 Test Item Value Reference Range Interpretation Comments WBC (test code = WBC) 5.1 3.7-10.4 [facility]2014-05-05 12:13:00 Test Item Value Reference Range Interpretation Comments Magnesium Lvl (test code = Magnesium 1.8 1.8-2.4 Lvl) [facility]2014-05-05 12:13:00 Test Item Value Reference Range Interpretation Comments Phosphorus (test code = Phosphorus) 2.6 2.5-4.5 [facility]2014-05-05 12:13:00 Test Item Value Reference Range Interpretation Comments Globulin (test code = Globulin) 2.8 2.0-4.0 [facility]2014-05-05 12:13:00 Test Item Value Reference Range Interpretation Comments A/G Ratio (test code = A/G Ratio) 1.2 0.7-1.6 [facility]2014-05-05 12:13:00 Test Item Value Reference Range Interpretation Comments B/C Ratio (test code = B/C Ratio) 10 6-25 [facility]2014-05-05 12:13:00 Test Item Value Reference Range Interpretation Comments AGAP (test code = AGAP) 6.9 10.0-20.0 [facility]2014-05-05 12:13:00 Test Item Value Reference Range Interpretation Comments eGFR (test code = eGFR) 101 [facility]2014-05-05 12:13:00 Test Item Value Reference Range Interpretation Comments Glucose Lvl (test code = Glucose Lvl) 84 70-99 [facility]2014-05-05 12:13:00 Test Item Value Reference Range Interpretation Comments Potassium Lvl (test code = Potassium 3.9 3.5-5.1 Lvl) [facility]2014-05-05 12:13:00 Test Item Value Reference Range Interpretation Comments Sodium Lvl (test code = Sodium Lvl) 141 135-145 [place] 634184-05-05 12:13:00 Test Item Value Reference Range Interpretation Comments Creatinine Lvl (test code = Creatinine 0.7 0.5-1.4 Lvl) [facility]2014-05-05 12:13:00 Test Item Value Reference Range Interpretation Comments BUN (test code = BUN) 7 7-22 [place] 634184-05-05 12:13:00 Test Item Value Reference Range Interpretation Comments Bili Total (test code = Bili Total) 0.3 0.2-1.3 [facility]2014-05-05 12:13:00 Test Item Value Reference Range Interpretation Comments Alk Phos (test code = Alk Phos) 71 39-136 [place] 634184-05-05 12:13:00 Test Item Value Reference Range Interpretation Comments AST (test code = AST) 21 See_Comment [Auto mated message] The system which ge nerated this result transmit ulysses reference range : <=37. The reference range was not used to interpr et this result as sharron l/abnormal. [place] 634184-05-05 12:13:00 Test Item Value Reference Range Interpretation Comments ALT (test code = ALT) 20 See_Comment [Auto mated message] The system which ge nerated this result transmit ulysses reference range : <=65. The reference range was not used to interpr et this result as sharron l/abnormal. [place] 634184-05-05 12:13:00 Test Item Value Reference Range Interpretation Comments Total Protein (test code = Total 6.1 6.4-8.4 Protein) [facility]2014-05-05 12:13:00 Test Item Value Reference Range Interpretation Comments CO2 (test code = CO2) 33 24-32 [place] 634184-05-05 12:13:00 Test Item Value Reference Range Interpretation Comments Albumin Lvl (test code = Albumin Lvl) 3.3 3.5-5.0 [facility]2014-05-05 12:13:00 Test Item Value Reference Range Interpretation Comments Calcium Lvl (test code = Calcium Lvl) 8.4 8.5-10.5 [place] 634184-05-05 12:13:00 Test Item Value Reference Range Interpretation Comments Chloride Lvl (test code = Chloride Lvl) 105 95-109 [facility] ClubXedjydwYZDXCVMYSX3208-56-83 12:13:00 Test Item Value Reference Range Interpretation Comments Basophils # (test code 0.0 See_Comment [Aut omated message] The = Basophils #) system which generated this result tra nsmitted reference range : <=0.2. The reference r jamaica was not used to int erpret this result as normal/abnormal . [facility] ClubNsjejkpEBQQZHEXXL9623-98-85 12:13:00 Test Item Value Reference Range Interpretation Comments Segs (test code = Segs) 63.5 45.0-75.0 [facility] ClubTskyczdRZBXMMMALT3288-52-06 12:13:00 Test Item Value Reference Range Interpretation Comments Monocytes # (test code 0.3 See_Comment [Aut omated message] The = Monocytes #) system which generated this result tra nsmitted reference range : <=0.8. The reference r jamaica was not used to int erpret this result as normal/abnormal . [facility] ClubPxbbigbDGEGTQDIXV5422-17-10 12:13:00 Test Item Value Reference Range Interpretation Comments Basophils (test code = 0.2 See_Comment [Aut omated message] The Basophils) system which ge nerated this result tra nsmitted reference range : <=1.0. The reference r jamaica was not used to int erpret this result as normal/abnormal . [facility] ClubLhvjarxTRVSHXSCAO6412-30-64 12:13:00 Test Item Value Reference Range Interpretation Comments Lymphocytes # (test code = Lymphocytes 1.5 1.0-5.5 #) [facility] ClubRosqiigNTQNQWSTAN1060-78-75 12:13:00 Test Item Value Reference Range Interpretation Comments Segs-Bands # (test code = Segs-Bands #) 3.3 1.5-8.1 [facility] ClubLkapzorHIIGDBUUVP8602-91-60 12:13:00 Test Item Value Reference Range Interpretation Comments Eosinophils # (test code 0.1 See_Comment [A utomated message] The = Eosinophils #) system whic h generated this result tra nsmitted reference range : <=0.5. The reference r jamaica was not used to int erpret this result as normal/abnormal . [facility] ClubMkgwjthGKIIDUXIPW5358-29-06 12:13:00 Test Item Value Reference Range Interpretation Comments Lymphocytes (test code = Lymphocytes) 28.9 20.0-40.0 [facility] ClubHzufxkhMCZUTNLGKX5054-50-39 12:13:00 Test Item Value Reference Range Interpretation Comments Monocytes (test code = Monocytes) 6.2 2.0-12.0 [facility] ClubDuaforgROWTSIPVVA9204-06-07 12:13:00 Test Item Value Reference Range Interpretation Comments Eosinophils (test code = 1.2 See_Comment [A utomated message] The Eosinophils) system which ge nerated this result tra nsmitted reference range : <=4.0. The reference r jamaica was not used to int erpret this result as normal/abnormal . [facility] ClubElscjieUCGAINSCRX5506-49-26 12:13:00 Test Item Value Reference Range Interpretation Comments MCHC (test code = MCHC) 34.3 32.0-36.0 [facility] ClubDoyihizCITHBTCJWN6718-77-16 12:13:00 Test Item Value Reference Range Interpretation Comments RDW (test code = RDW) 16.5 11.5-14.5 [facility] ClubPdwugclMXDFHGTAFC8434-42-96 12:13:00 Test Item Value Reference Range Interpretation Comments MCH (test code = MCH) 31.5 pg 27.0-31.0 [facility] ClubYzvluttCCFVYMKQUK0205-73-98 12:13:00 Test Item Value Reference Range Interpretation Comments MCV (test code = MCV) 91.9 81.0-99.0 [facility] ClubTzsuvdsROXDMGSZFX7807-83-98 12:13:00 Test Item Value Reference Range Interpretation Comments Platelet (test code = Platelet) 177 133-450 [facility] ClubUbcjrkwXLDEISDDUP7817-54-29 12:13:00 Test Item Value Reference Range Interpretation Comments MPV (test code = MPV) 7.9 7.4-10.4 [facility] ClubQiqowpwQJJUUQWFWS5626-82-56 12:13:00 Test Item Value Reference Range Interpretation Comments RBC (test code = RBC) 3.91 4.20-5.40 [facility] ClubPpcizkzITBPCGOXGY4996-78-79 12:13:00 Test Item Value Reference Range Interpretation Comments Hct (test code = Hct) 35.9 36.0-48.0 [facility] ClubNsfcdzpJKBRQYRYTB3030-58-00 12:13:00 Test Item Value Reference Range Interpretation Comments Hgb (test code = Hgb) 12.3 12.0-16.0 [facility] ClubNwjcmmbOONYRJEKWH7005-80-92 12:13:00 Test Item Value Reference Range Interpretation Comments WBC (test code = WBC) 5.1 3.7-10.4 [facility]2014-05-05 12:13:00 Test Item Value Reference Range Interpretation Comments Magnesium Lvl (test code = Magnesium 1.8 1.8-2.4 Lvl) [facility]2014-05-05 12:13:00 Test Item Value Reference Range Interpretation Comments Phosphorus (test code = Phosphorus) 2.6 2.5-4.5 [facility]2014-05-05 12:13:00 Test Item Value Reference Range Interpretation Comments Globulin (test code = Globulin) 2.8 2.0-4.0 [facility]2014-05-05 12:13:00 Test Item Value Reference Range Interpretation Comments A/G Ratio (test code = A/G Ratio) 1.2 0.7-1.6 [facility]2014-05-05 12:13:00 Test Item Value Reference Range Interpretation Comments B/C Ratio (test code = B/C Ratio) 10 6-25 [facility]2014-05-05 12:13:00 Test Item Value Reference Range Interpretation Comments AGAP (test code = AGAP) 6.9 10.0-20.0 [facility]2014-05-05 12:13:00 Test Item Value Reference Range Interpretation Comments eGFR (test code = eGFR) 101 [facility]2014-05-05 12:13:00 Test Item Value Reference Range Interpretation Comments Glucose Lvl (test code = Glucose Lvl) 84 70-99 [facility]2014-05-05 12:13:00 Test Item Value Reference Range Interpretation Comments Potassium Lvl (test code = Potassium 3.9 3.5-5.1 Lvl) [facility]2014-05-05 12:13:00 Test Item Value Reference Range Interpretation Comments Sodium Lvl (test code = Sodium Lvl) 141 135-145 [facility]2014-05-05 12:13:00 Test Item Value Reference Range Interpretation Comments Creatinine Lvl (test code = Creatinine 0.7 0.5-1.4 Lvl) [facility]2014-05-05 12:13:00 Test Item Value Reference Range Interpretation Comments BUN (test code = BUN) 7 7-22 [facility]2014-05-05 12:13:00 Test Item Value Reference Range Interpretation Comments Bili Total (test code = Bili Total) 0.3 0.2-1.3 [facility]2014-05-05 12:13:00 Test Item Value Reference Range Interpretation Comments Alk Phos (test code = Alk Phos) 71 39-136 [facility]2014-05-05 12:13:00 Test Item Value Reference Range Interpretation Comments AST (test code = AST) 21 See_Comment [Auto mated message] The system which ge nerated this result transmit ulysses reference range : <=37. The reference range was not used to interpr et this result as sharron l/abnormal. [facility]2014-05-05 12:13:00 Test Item Value Reference Range Interpretation Comments ALT (test code = ALT) 20 See_Comment [Auto mated message] The system which ge nerated this result transmit ulysses reference range : <=65. The reference range was not used to interpr et this result as sharron l/abnormal. [facility]2014-05-05 12:13:00 Test Item Value Reference Range Interpretation Comments Total Protein (test code = Total 6.1 6.4-8.4 Protein) [facility]2014-05-05 12:13:00 Test Item Value Reference Range Interpretation Comments CO2 (test code = CO2) 33 24-32 [facility]2014-05-05 12:13:00 Test Item Value Reference Range Interpretation Comments Albumin Lvl (test code = Albumin Lvl) 3.3 3.5-5.0 [facility]2014-05-05 12:13:00 Test Item Value Reference Range Interpretation Comments Calcium Lvl (test code = Calcium Lvl) 8.4 8.5-10.5 [facility]2014-05-05 12:13:00 Test Item Value Reference Range Interpretation Comments Chloride Lvl (test code = Chloride Lvl) 105 95-109 [facility] ClubVzwrwwzIBKYKLTIMK9596-40-94 12:13:00 Test Item Value Reference Range Interpretation Comments Basophils # (test code 0.0 See_Comment [Aut omated message] The = Basophils #) system which generated this result tra nsmitted reference range : <=0.2. The reference r jamaica was not used to int erpret this result as normal/abnormal . [facility] ClubIxfrzmlZHUKMAYKOZ7893-11-19 12:13:00 Test Item Value Reference Range Interpretation Comments Segs (test code = Segs) 63.5 45.0-75.0 [facility] ClubWsuxxqyLMVBMZZPMM0505-82-54 12:13:00 Test Item Value Reference Range Interpretation Comments Monocytes # (test code 0.3 See_Comment [Aut omated message] The = Monocytes #) system which generated this result tra nsmitted reference range : <=0.8. The reference r jamaica was not used to int erpret this result as normal/abnormal . [facility] ClubEcbwchfZIYIENKCIO4878-35-52 12:13:00 Test Item Value Reference Range Interpretation Comments Basophils (test code = 0.2 See_Comment [Aut omated message] The Basophils) system which ge nerated this result tra nsmitted reference range : <=1.0. The reference r jamaica was not used to int erpret this result as normal/abnormal . [facility] ClubDhuvhciFRAFWNEZUP9903-50-64 12:13:00 Test Item Value Reference Range Interpretation Comments Lymphocytes # (test code = Lymphocytes 1.5 1.0-5.5 #) [facility] ClubFpcixrcOQVJSRGCEC4628-15-91 12:13:00 Test Item Value Reference Range Interpretation Comments Segs-Bands # (test code = Segs-Bands #) 3.3 1.5-8.1 [facility] ClubGlnwllyCBEBMNPTAE9018-47-57 12:13:00 Test Item Value Reference Range Interpretation Comments Eosinophils # (test code 0.1 See_Comment [A utomated message] The = Eosinophils #) system whic h generated this result tra nsmitted reference range : <=0.5. The reference r jamaica was not used to int erpret this result as normal/abnormal . [facility] ClubVejgupnFUEKXFJDNV7086-95-80 12:13:00 Test Item Value Reference Range Interpretation Comments Lymphocytes (test code = Lymphocytes) 28.9 20.0-40.0 [facility] ClubDpbweijVRLLUDXEZH8963-66-93 12:13:00 Test Item Value Reference Range Interpretation Comments Monocytes (test code = Monocytes) 6.2 2.0-12.0 [facility] ClubMlejhbuJAZIEIWXGG7845-76-99 12:13:00 Test Item Value Reference Range Interpretation Comments Eosinophils (test code = 1.2 See_Comment [A utomated message] The Eosinophils) system which ge nerated this result tra nsmitted reference range : <=4.0. The reference r jamaica was not used to int erpret this result as normal/abnormal . [facility] ClubQpymmiiXONLZFSTOR9676-26-59 12:13:00 Test Item Value Reference Range Interpretation Comments MCHC (test code = MCHC) 34.3 32.0-36.0 [facility] ClubLyunbnsKUWUQBQGVV7321-28-74 12:13:00 Test Item Value Reference Range Interpretation Comments RDW (test code = RDW) 16.5 11.5-14.5 [facility] ClubRtubngnSLAUTEOLDJ0026-79-40 12:13:00 Test Item Value Reference Range Interpretation Comments MCH (test code = MCH) 31.5 pg 27.0-31.0 [facility] ClubLojvrmlBSAIUIKVVG7174-09-95 12:13:00 Test Item Value Reference Range Interpretation Comments MCV (test code = MCV) 91.9 81.0-99.0 [facility] ClubGddqaodEKOFDBOQAJ2656-53-69 12:13:00 Test Item Value Reference Range Interpretation Comments Platelet (test code = Platelet) 177 133-450 [facility] ClubNddqefhGKBLPDQCCK6567-18-29 12:13:00 Test Item Value Reference Range Interpretation Comments MPV (test code = MPV) 7.9 7.4-10.4 [facility] ClubRwnvdqxLEGVNOFUWV9893-76-04 12:13:00 Test Item Value Reference Range Interpretation Comments RBC (test code = RBC) 3.91 4.20-5.40 [facility] ClubDgxwqtpZENLUCWTZI2917-18-01 12:13:00 Test Item Value Reference Range Interpretation Comments Hct (test code = Hct) 35.9 36.0-48.0 [facility] ClubMjrzkmfWTEOFOJWNL1818-78-55 12:13:00 Test Item Value Reference Range Interpretation Comments Hgb (test code = Hgb) 12.3 12.0-16.0 [facility] ClubMwcfmmsCXTVPTLICI3820-53-66 12:13:00 Test Item Value Reference Range Interpretation Comments WBC (test code = WBC) 5.1 3.7-10.4 [facility]2014-05-05 12:13:00 Test Item Value Reference Range Interpretation Comments Magnesium Lvl (test code = Magnesium 1.8 1.8-2.4 Lvl) [facility]2014-05-05 12:13:00 Test Item Value Reference Range Interpretation Comments Phosphorus (test code = Phosphorus) 2.6 2.5-4.5 [facility]2014-05-05 12:13:00 Test Item Value Reference Range Interpretation Comments Globulin (test code = Globulin) 2.8 2.0-4.0 [facility]2014-05-05 12:13:00 Test Item Value Reference Range Interpretation Comments A/G Ratio (test code = A/G Ratio) 1.2 0.7-1.6 [facility]2014-05-05 12:13:00 Test Item Value Reference Range Interpretation Comments B/C Ratio (test code = B/C Ratio) 10 6-25 [facility]2014-05-05 12:13:00 Test Item Value Reference Range Interpretation Comments AGAP (test code = AGAP) 6.9 10.0-20.0 [facility]2014-05-05 12:13:00 Test Item Value Reference Range Interpretation Comments eGFR (test code = eGFR) 101 [facility]2014-05-05 12:13:00 Test Item Value Reference Range Interpretation Comments Glucose Lvl (test code = Glucose Lvl) 84 70-99 [facility]2014-05-05 12:13:00 Test Item Value Reference Range Interpretation Comments Potassium Lvl (test code = Potassium 3.9 3.5-5.1 Lvl) [facility]2014-05-05 12:13:00 Test Item Value Reference Range Interpretation Comments Sodium Lvl (test code = Sodium Lvl) 141 135-145 [facility]2014-05-05 12:13:00 Test Item Value Reference Range Interpretation Comments Creatinine Lvl (test code = Creatinine 0.7 0.5-1.4 Lvl) [facility]2014-05-05 12:13:00 Test Item Value Reference Range Interpretation Comments BUN (test code = BUN) 7 7-22 [facility]2014-05-05 12:13:00 Test Item Value Reference Range Interpretation Comments Bili Total (test code = Bili Total) 0.3 0.2-1.3 [place] 634184-05-05 12:13:00 Test Item Value Reference Range Interpretation Comments Alk Phos (test code = Alk Phos) 71 39-136 [facility]2014-05-05 12:13:00 Test Item Value Reference Range Interpretation Comments AST (test code = AST) 21 See_Comment [Auto mated message] The system which ge nerated this result transmit ulysses reference range : <=37. The reference range was not used to interpr et this result as sharron l/abnormal. [place] 634184-05-05 12:13:00 Test Item Value Reference Range Interpretation Comments ALT (test code = ALT) 20 See_Comment [Auto mated message] The system which ge nerated this result transmit ulysses reference range : <=65. The reference range was not used to interpr et this result as sharron l/abnormal. [facility]2014-05-05 12:13:00 Test Item Value Reference Range Interpretation Comments Total Protein (test code = Total 6.1 6.4-8.4 Protein) [facility]2014-05-05 12:13:00 Test Item Value Reference Range Interpretation Comments CO2 (test code = CO2) 33 24-32 [place] 634184-05-05 12:13:00 Test Item Value Reference Range Interpretation Comments Albumin Lvl (test code = Albumin Lvl) 3.3 3.5-5.0 [facility]2014-05-05 12:13:00 Test Item Value Reference Range Interpretation Comments Calcium Lvl (test code = Calcium Lvl) 8.4 8.5-10.5 [facility]2014-05-05 12:13:00 Test Item Value Reference Range Interpretation Comments Chloride Lvl (test code = Chloride Lvl) 105 95-109 [facility] ClubQbsslkbZMEXFRAGTF4478-98-97 12:13:00 Test Item Value Reference Range Interpretation Comments Basophils # (test code 0.0 See_Comment [Aut omated message] The = Basophils #) system which generated this result tra nsmitted reference range : <=0.2. The reference r jamaica was not used to int erpret this result as normal/abnormal . [facility] ClubCiqwjcmWPYOFTXGGG2412-75-09 12:13:00 Test Item Value Reference Range Interpretation Comments Segs (test code = Segs) 63.5 45.0-75.0 [facility] ClubIdmfpmxPRXCKXBAAP9103-75-97 12:13:00 Test Item Value Reference Range Interpretation Comments Monocytes # (test code 0.3 See_Comment [Aut omated message] The = Monocytes #) system which generated this result tra nsmitted reference range : <=0.8. The reference r jamaica was not used to int erpret this result as normal/abnormal . [facility] ClubYpyzyabCPFPZZAOCE4883-80-48 12:13:00 Test Item Value Reference Range Interpretation Comments Basophils (test code = 0.2 See_Comment [Aut omated message] The Basophils) system which ge nerated this result tra nsmitted reference range : <=1.0. The reference r jamaica was not used to int erpret this result as normal/abnormal . [facility] ClubOkmgpnaEBEXDQVRYJ8332-23-26 12:13:00 Test Item Value Reference Range Interpretation Comments Lymphocytes # (test code = Lymphocytes 1.5 1.0-5.5 #) [facility] ClubNyquhweKXCSYAIOTS5332-51-13 12:13:00 Test Item Value Reference Range Interpretation Comments Segs-Bands # (test code = Segs-Bands #) 3.3 1.5-8.1 [facility] ClubJslpnyrODMKCCLMCT7332-92-01 12:13:00 Test Item Value Reference Range Interpretation Comments Eosinophils # (test code 0.1 See_Comment [A utomated message] The = Eosinophils #) system whic h generated this result tra nsmitted reference range : <=0.5. The reference r jamaica was not used to int erpret this result as normal/abnormal . [facility] ClubTtcohzbYCUXYJSMCP6979-38-08 12:13:00 Test Item Value Reference Range Interpretation Comments Lymphocytes (test code = Lymphocytes) 28.9 20.0-40.0 [facility] ClubQzewhgcBEJNXOLKWB3134-98-36 12:13:00 Test Item Value Reference Range Interpretation Comments Monocytes (test code = Monocytes) 6.2 2.0-12.0 [facility] [facility] ClubZzaeejbYVDDEBFAHN1871-84-97 12:13:00 Test Item Value Reference Range Interpretation Comments Eosinophils (test code = 1.2 See_Comment [A utomated message] The Eosinophils) system which ge nerated this result tra nsmitted reference range : <=4.0. The reference r j[place] was not used to int erpret this result as normal/abnormal . [facility] ClubNufjgvcFZRYCYVAKO9172-02-34 12:13:00 Test Item Value Reference Range Interpretation Comments MCHC (test code = MCHC) 34.3 32.0-36.0 [facility] ClubNoaquibOQMEXSGKSR3244-19-81 12:13:00 Test Item Value Reference Range Interpretation Comments RDW (test code = RDW) 16.5 11.5-14.5 [facility] ClubHnstqokIETUEDKSCP5060-96-45 12:13:00 Test Item Value Reference Range Interpretation Comments MCH (test code = MCH) 31.5 pg 27.0-31.0 [facility] ClubDkxrrynYAZLIUNFJV0700-73-72 12:13:00 Test Item Value Reference Range Interpretation Comments MCV (test code = MCV) 91.9 81.0-99.0 [facility] ClubZmrfhvkDNYQLRCKSR2946-88-59 12:13:00 Test Item Value Reference Range Interpretation Comments Platelet (test code = Platelet) 177 133-450 [facility] ClubBwvylqtRFBNDYIMKI5615-23-09 12:13:00 Test Item Value Reference Range Interpretation Comments MPV (test code = MPV) 7.9 7.4-10.4 [facility] ClubMbbgmbhMONVCGDJSU5221-73-60 12:13:00 Test Item Value Reference Range Interpretation Comments RBC (test code = RBC) 3.91 4.20-5.40 [facility] ClubHgfwxtfGXAKEJJRAY5287-75-40 12:13:00 Test Item Value Reference Range Interpretation Comments Hct (test code = Hct) 35.9 36.0-48.0 [facility] ClubQrydkwxHXLVJNFKKB5809-45-08 12:13:00 Test Item Value Reference Range Interpretation Comments Hgb (test code = Hgb) 12.3 12.0-16.0 [facility] ClubEwcwmqjLEIGNVYRCZ2653-71-78 12:13:00 Test Item Value Reference Range Interpretation Comments WBC (test code = WBC) 5.1 3.7-10.4 [facility]2014-05-05 12:13:00 Test Item Value Reference Range Interpretation Comments Magnesium Lvl (test code = Magnesium 1.8 1.8-2.4 Lvl) [facility]2014-05-05 12:13:00 Test Item Value Reference Range Interpretation Comments Phosphorus (test code = Phosphorus) 2.6 2.5-4.5 [facility]2014-05-05 12:13:00 Test Item Value Reference Range Interpretation Comments Globulin (test code = Globulin) 2.8 2.0-4.0 [facility]2014-05-05 12:13:00 Test Item Value Reference Range Interpretation Comments A/G Ratio (test code = A/G Ratio) 1.2 0.7-1.6 [facility]2014-05-05 12:13:00 Test Item Value Reference Range Interpretation Comments B/C Ratio (test code = B/C Ratio) 10 6-25 [facility]2014-05-05 12:13:00 Test Item Value Reference Range Interpretation Comments AGAP (test code = AGAP) 6.9 10.0-20.0 [facility]2014-05-05 12:13:00 Test Item Value Reference Range Interpretation Comments eGFR (test code = eGFR) 101 [facility]2014-05-05 12:13:00 Test Item Value Reference Range Interpretation Comments Glucose Lvl (test code = Glucose Lvl) 84 70-99 [facility]2014-05-05 12:13:00 Test Item Value Reference Range Interpretation Comments Potassium Lvl (test code = Potassium 3.9 3.5-5.1 Lvl) [facility]2014-05-05 12:13:00 Test Item Value Reference Range Interpretation Comments Sodium Lvl (test code = Sodium Lvl) 141 135-145 [facility]2014-05-05 12:13:00 Test Item Value Reference Range Interpretation Comments Creatinine Lvl (test code = Creatinine 0.7 0.5-1.4 Lvl) [facility]2014-05-05 12:13:00 Test Item Value Reference Range Interpretation Comments BUN (test code = BUN) 7 7-22 [facility]2014-05-05 12:13:00 Test Item Value Reference Range Interpretation Comments Bili Total (test code = Bili Total) 0.3 0.2-1.3 [facility]2014-05-05 12:13:00 Test Item Value Reference Range Interpretation Comments Alk Phos (test code = Alk Phos) 71 39-136 [facility]2014-05-05 12:13:00 Test Item Value Reference Range Interpretation Comments AST (test code = AST) 21 See_Comment [Auto mated message] The system which ge nerated this result transmit ulysses reference range : <=37. The reference range was not used to interpr et this result as sharron l/abnormal. [place]34184-05-05 12:13:00 Test Item Value Reference Range Interpretation Comments ALT (test code = ALT) 20 See_Comment [Auto mated message] The system which ge nerated this result transmit ulysses reference range : <=65. The reference range was not used to interpr et this result as sharron l/abnormal. [facility]2014-05-05 12:13:00 Test Item Value Reference Range Interpretation Comments Total Protein (test code = Total 6.1 6.4-8.4 Protein) [place] 634184-05-05 12:13:00 Test Item Value Reference Range Interpretation Comments CO2 (test code = CO2) 33 24-32 [place] 634184-05-05 12:13:00 Test Item Value Reference Range Interpretation Comments Albumin Lvl (test code = Albumin Lvl) 3.3 3.5-5.0 [facility]2014-05-05 12:13:00 Test Item Value Reference Range Interpretation Comments Calcium Lvl (test code = Calcium Lvl) 8.4 8.5-10.5 [facility]2014-05-05 12:13:00 Test Item Value Reference Range Interpretation Comments Chloride Lvl (test code = Chloride Lvl) 105 95-109 [facility] ClubBxyazmbCWGXTFKALT1032-76-12 12:13:00 Test Item Value Reference Range Interpretation Comments Basophils # (test code 0.0 See_Comment [Aut omated message] The = Basophils #) system which generated this result tra nsmitted reference range : <=0.2. The reference r jamaica was not used to int erpret this result as normal/abnormal . [facility] ClubLuuxagpZUGYJHFQSL2190-28-81 12:13:00 Test Item Value Reference Range Interpretation Comments Segs (test code = Segs) 63.5 45.0-75.0 [facility] ClubSxfhjnvVGOIIJTJUU8396-69-91 12:13:00 Test Item Value Reference Range Interpretation Comments Monocytes # (test code 0.3 See_Comment [Aut omated message] The = Monocytes #) system which generated this result tra nsmitted reference range : <=0.8. The reference r jamaica was not used to int erpret this result as normal/abnormal . [facility] ClubLvscsfbPHQKZEWSSM5096-27-16 12:13:00 Test Item Value Reference Range Interpretation Comments Basophils (test code = 0.2 See_Comment [Aut omated message] The Basophils) system which ge nerated this result tra nsmitted reference range : <=1.0. The reference r jamaica was not used to int erpret this result as normal/abnormal . [facility] ClubVsujomoFHVTVDUJYM8576-69-12 12:13:00 Test Item Value Reference Range Interpretation Comments Lymphocytes # (test code = Lymphocytes 1.5 1.0-5.5 #) [facility] ClubCdsbhhfJJDUIHJOWS0090-72-92 12:13:00 Test Item Value Reference Range Interpretation Comments Segs-Bands # (test code = Segs-Bands #) 3.3 1.5-8.1 [facility] ClubLjcvickYUFGJCFLKU0467-53-81 12:13:00 Test Item Value Reference Range Interpretation Comments Eosinophils # (test code 0.1 See_Comment [A utomated message] The = Eosinophils #) system whic h generated this result tra nsmitted reference range : <=0.5. The reference r jamaica was not used to int erpret this result as normal/abnormal . [facility] ClubZteluuhWWZMZNEIWH6499-89-71 12:13:00 Test Item Value Reference Range Interpretation Comments Lymphocytes (test code = Lymphocytes) 28.9 20.0-40.0 [facility] ClubBrvkmqkHZRBZAMWLA8613-41-23 12:13:00 Test Item Value Reference Range Interpretation Comments Monocytes (test code = Monocytes) 6.2 2.0-12.0 [facility] ClubGvnxvkbBJVTKQMFVS8593-88-43 12:13:00 Test Item Value Reference Range Interpretation Comments Eosinophils (test code = 1.2 See_Comment [A utomated message] The Eosinophils) system which ge nerated this result tra nsmitted reference range : <=4.0. The reference r jamaica was not used to int erpret this result as normal/abnormal . [facility] ClubCrotpzmIDMKBWKMKU5647-09-27 12:13:00 Test Item Value Reference Range Interpretation Comments MCHC (test code = MCHC) 34.3 32.0-36.0 [facility] ClubIbgkpwjUSBBMSNKSV0377-84-33 12:13:00 Test Item Value Reference Range Interpretation Comments RDW (test code = RDW) 16.5 11.5-14.5 [facility] ClubIebpntrAOTEAYMNIF1462-59-71 12:13:00 Test Item Value Reference Range Interpretation Comments MCH (test code = MCH) 31.5 pg 27.0-31.0 [facility] ClubJqpsunaXRSHLUYJFK8473-47-72 12:13:00 Test Item Value Reference Range Interpretation Comments MCV (test code = MCV) 91.9 81.0-99.0 [facility] ClubTsbngncGCCYLCCPZE4733-57-88 12:13:00 Test Item Value Reference Range Interpretation Comments Platelet (test code = Platelet) 177 133-450 [facility] ClubEnaklfyGVGCKJYVCP4157-57-51 12:13:00 Test Item Value Reference Range Interpretation Comments MPV (test code = MPV) 7.9 7.4-10.4 [facility] ClubXycquitONMXZOUCFD8115-97-24 12:13:00 Test Item Value Reference Range Interpretation Comments RBC (test code = RBC) 3.91 4.20-5.40 [facility] ClubUcvdotcQYEQFTQSRD7431-54-84 12:13:00 Test Item Value Reference Range Interpretation Comments Hct (test code = Hct) 35.9 36.0-48.0 [facility] ClubOcosodhDGYIHOIRWY2501-36-71 12:13:00 Test Item Value Reference Range Interpretation Comments Hgb (test code = Hgb) 12.3 12.0-16.0 [facility] ClubJyhaarlSRUKNTIZVK6807-64-86 12:13:00 Test Item Value Reference Range Interpretation Comments WBC (test code = WBC) 5.1 3.7-10.4 [facility]2014-05-05 12:13:00 Test Item Value Reference Range Interpretation Comments Magnesium Lvl (test code = Magnesium 1.8 1.8-2.4 Lvl) [facility]2014-05-05 12:13:00 Test Item Value Reference Range Interpretation Comments Phosphorus (test code = Phosphorus) 2.6 2.5-4.5 [facility]2014-05-05 12:13:00 Test Item Value Reference Range Interpretation Comments Globulin (test code = Globulin) 2.8 2.0-4.0 [facility]2014-05-05 12:13:00 Test Item Value Reference Range Interpretation Comments A/G Ratio (test code = A/G Ratio) 1.2 0.7-1.6 [facility]2014-05-05 12:13:00 Test Item Value Reference Range Interpretation Comments B/C Ratio (test code = B/C Ratio) 10 6-25 [place] 634184-05-05 12:13:00 Test Item Value Reference Range Interpretation Comments AGAP (test code = AGAP) 6.9 10.0-20.0 [place] 634184-05-05 12:13:00 Test Item Value Reference Range Interpretation Comments eGFR (test code = eGFR) 101 [place] 634184-05-05 12:13:00 Test Item Value Reference Range Interpretation Comments Glucose Lvl (test code = Glucose Lvl) 84 70-99 [place] 634184-05-05 12:13:00 Test Item Value Reference Range Interpretation Comments Potassium Lvl (test code = Potassium 3.9 3.5-5.1 Lvl) [facility]2014-05-05 12:13:00 Test Item Value Reference Range Interpretation Comments Sodium Lvl (test code = Sodium Lvl) 141 135-145 [place] 634184-05-05 12:13:00 Test Item Value Reference Range Interpretation Comments Creatinine Lvl (test code = Creatinine 0.7 0.5-1.4 Lvl) [facility]2014-05-05 12:13:00 Test Item Value Reference Range Interpretation Comments BUN (test code = BUN) 7 7-22 [place] 634184-05-05 12:13:00 Test Item Value Reference Range Interpretation Comments Bili Total (test code = Bili Total) 0.3 0.2-1.3 [place] 634184-05-05 12:13:00 Test Item Value Reference Range Interpretation Comments Alk Phos (test code = Alk Phos) 71 39-136 [place] 634184-05-05 12:13:00 Test Item Value Reference Range Interpretation Comments AST (test code = AST) 21 See_Comment [Auto mated message] The system which ge nerated this result transmit ulysses reference range : <=37. The reference range was not used to interpr et this result as sharron l/abnormal. [place] 634184-05-05 12:13:00 Test Item Value Reference Range Interpretation Comments ALT (test code = ALT) 20 See_Comment [Auto mated message] The system which ge nerated this result transmit ulysses reference range : <=65. The reference range was not used to interpr et this result as sharron l/abnormal. [place] 634184-05-05 12:13:00 Test Item Value Reference Range Interpretation Comments Total Protein (test code = Total 6.1 6.4-8.4 Protein) [facility]2014-05-05 12:13:00 Test Item Value Reference Range Interpretation Comments CO2 (test code = CO2) 33 24-32 [facility]2014-05-05 12:13:00 Test Item Value Reference Range Interpretation Comments Albumin Lvl (test code = Albumin Lvl) 3.3 3.5-5.0 [facility]2014-05-05 12:13:00 Test Item Value Reference Range Interpretation Comments Calcium Lvl (test code = Calcium Lvl) 8.4 8.5-10.5 [facility]2014-05-05 12:13:00 Test Item Value Reference Range Interpretation Comments Chloride Lvl (test code = Chloride Lvl) 105 95-109 [facility] ClubLomtfytNOVRKANIHS7132-04-71 12:13:00 Test Item Value Reference Range Interpretation Comments Basophils # (test code 0.0 See_Comment [Aut omated message] The = Basophils #) system which generated this result tra nsmitted reference range : <=0.2. The reference r jamaica was not used to int erpret this result as normal/abnormal . [facility] ClubQfrijofEAELYBZXHG7193-43-19 12:13:00 Test Item Value Reference Range Interpretation Comments Segs (test code = Segs) 63.5 45.0-75.0 [facility] ClubEcchadoLEGAOMAGDK3216-27-61 12:13:00 Test Item Value Reference Range Interpretation Comments Monocytes # (test code 0.3 See_Comment [Aut omated message] The = Monocytes #) system which generated this result tra nsmitted reference range : <=0.8. The reference r jamaica was not used to int erpret this result as normal/abnormal . [facility] ClubVpajwyjTHCBWBCZCV8967-74-01 12:13:00 Test Item Value Reference Range Interpretation Comments Basophils (test code = 0.2 See_Comment [Aut omated message] The Basophils) system which ge nerated this result tra nsmitted reference range : <=1.0. The reference r jamaica was not used to int erpret this result as normal/abnormal . [facility] ClubTmztirgIPFLBCTLFP2678-17-81 12:13:00 Test Item Value Reference Range Interpretation Comments Lymphocytes # (test code = Lymphocytes 1.5 1.0-5.5 #) [facility] ClubNjpbezjNNUKZKXIOH3975-26-90 12:13:00 Test Item Value Reference Range Interpretation Comments Segs-Bands # (test code = Segs-Bands #) 3.3 1.5-8.1 [facility] ClubDcljfduTIEMSKQABL1787-81-40 12:13:00 Test Item Value Reference Range Interpretation Comments Eosinophils # (test code 0.1 See_Comment [A utomated message] The = Eosinophils #) system whic h generated this result tra nsmitted reference range : <=0.5. The reference r jamaica was not used to int erpret this result as normal/abnormal . [facility] ClubSrfjjaoCFMYIOUUDF7880-86-97 12:13:00 Test Item Value Reference Range Interpretation Comments Lymphocytes (test code = Lymphocytes) 28.9 20.0-40.0 [facility] ClubBwhoezqQFOJAUNFAY2438-95-58 12:13:00 Test Item Value Reference Range Interpretation Comments Monocytes (test code = Monocytes) 6.2 2.0-12.0 [facility] ClubVfzoubmDUSOCPGKYS6608-05-00 12:13:00 Test Item Value Reference Range Interpretation Comments Eosinophils (test code = 1.2 See_Comment [A utomated message] The Eosinophils) system which ge nerated this result tra nsmitted reference range : <=4.0. The reference r jamaica was not used to int erpret this result as normal/abnormal . [facility] ClubAuhnjpvNIIVWRZBVT9634-68-82 12:13:00 Test Item Value Reference Range Interpretation Comments MCHC (test code = MCHC) 34.3 32.0-36.0 [facility] ClubXjlpbieXCILRUWBKS4022-90-03 12:13:00 Test Item Value Reference Range Interpretation Comments RDW (test code = RDW) 16.5 11.5-14.5 [facility] ClubOklrogwHUFILMVLGY0549-87-36 12:13:00 Test Item Value Reference Range Interpretation Comments MCH (test code = MCH) 31.5 pg 27.0-31.0 [facility] ClubMwbijdrOTPLQKWNHQ2232-09-50 12:13:00 Test Item Value Reference Range Interpretation Comments MCV (test code = MCV) 91.9 81.0-99.0 [facility] ClubKvlloydLQERLDGZBW1478-52-93 12:13:00 Test Item Value Reference Range Interpretation Comments Platelet (test code = Platelet) 177 133-450 [facility] ClubMjolmuyGGDKHMLVVE3263-14-84 12:13:00 Test Item Value Reference Range Interpretation Comments MPV (test code = MPV) 7.9 7.4-10.4 [facility] ClubNafmmsxCBCLIOTLFL7213-99-48 12:13:00 Test Item Value Reference Range Interpretation Comments RBC (test code = RBC) 3.91 4.20-5.40 [facility] ClubFrdlkaqOZPEEHYGBB8689-04-27 12:13:00 Test Item Value Reference Range Interpretation Comments Hct (test code = Hct) 35.9 36.0-48.0 [facility] ClubFmqogqlTRFEMIEAMK1580-46-72 12:13:00 Test Item Value Reference Range Interpretation Comments Hgb (test code = Hgb) 12.3 12.0-16.0 [facility] ClubAseduapPETLVVANQI8952-75-27 12:13:00 Test Item Value Reference Range Interpretation Comments WBC (test code = WBC) 5.1 3.7-10.4 [facility]2014-05-05 12:13:00 Test Item Value Reference Range Interpretation Comments Magnesium Lvl (test code = Magnesium 1.8 1.8-2.4 Lvl) [facility]2014-05-05 12:13:00 Test Item Value Reference Range Interpretation Comments Phosphorus (test code = Phosphorus) 2.6 2.5-4.5 [facility]2014-05-05 12:13:00 Test Item Value Reference Range Interpretation Comments Globulin (test code = Globulin) 2.8 2.0-4.0 [facility]2014-05-05 12:13:00 Test Item Value Reference Range Interpretation Comments A/G Ratio (test code = A/G Ratio) 1.2 0.7-1.6 [facility]2014-05-05 12:13:00 Test Item Value Reference Range Interpretation Comments B/C Ratio (test code = B/C Ratio) 10 6-25 [place] 634184-05-05 12:13:00 Test Item Value Reference Range Interpretation Comments AGAP (test code = AGAP) 6.9 10.0-20.0 [facility]2014-05-05 12:13:00 Test Item Value Reference Range Interpretation Comments eGFR (test code = eGFR) 101 [facility]2014-05-05 12:13:00 Test Item Value Reference Range Interpretation Comments Glucose Lvl (test code = Glucose Lvl) 84 70-99 [facility]2014-05-05 12:13:00 Test Item Value Reference Range Interpretation Comments Potassium Lvl (test code = Potassium 3.9 3.5-5.1 Lvl) [facility]2014-05-05 12:13:00 Test Item Value Reference Range Interpretation Comments Sodium Lvl (test code = Sodium Lvl) 141 135-145 [facility]2014-05-05 12:13:00 Test Item Value Reference Range Interpretation Comments Creatinine Lvl (test code = Creatinine 0.7 0.5-1.4 Lvl) [facility]2014-05-05 12:13:00 Test Item Value Reference Range Interpretation Comments BUN (test code = BUN) 7 7-22 [place] 634184-05-05 12:13:00 Test Item Value Reference Range Interpretation Comments Bili Total (test code = Bili Total) 0.3 0.2-1.3 [place] 634184-05-05 12:13:00 Test Item Value Reference Range Interpretation Comments Alk Phos (test code = Alk Phos) 71 39-136 [place] 634184-05-05 12:13:00 Test Item Value Reference Range Interpretation Comments AST (test code = AST) 21 See_Comment [Auto mated message] The system which ge nerated this result transmit ulysses reference range : <=37. The reference range was not used to interpr et this result as sharron l/abnormal. [facility]2014-05-05 12:13:00 Test Item Value Reference Range Interpretation Comments ALT (test code = ALT) 20 See_Comment [Auto mated message] The system which ge nerated this result transmit ulysses reference range : <=65. The reference range was not used to interpr et this result as sharron l/abnormal. [facility]2014-05-05 12:13:00 Test Item Value Reference Range Interpretation Comments Total Protein (test code = Total 6.1 6.4-8.4 Protein) [facility]2014-05-05 12:13:00 Test Item Value Reference Range Interpretation Comments CO2 (test code = CO2) 33 24-32 [place] 634184-05-05 12:13:00 Test Item Value Reference Range Interpretation Comments Albumin Lvl (test code = Albumin Lvl) 3.3 3.5-5.0 [facility]2014-05-05 12:13:00 Test Item Value Reference Range Interpretation Comments Calcium Lvl (test code = Calcium Lvl) 8.4 8.5-10.5 [place] 634184-05-05 12:13:00 Test Item Value Reference Range Interpretation Comments Chloride Lvl (test code = Chloride Lvl) 105 95-109 [facility] ClubLxjjtplVSGYYKHKHY1019-50-54 12:13:00 Test Item Value Reference Range Interpretation Comments Basophils # (test code 0.0 See_Comment [Aut omated message] The = Basophils #) system which generated this result tra nsmitted reference range : <=0.2. The reference r jamaica was not used to int erpret this result as normal/abnormal . [facility] ClubBglqksdXWLQRROUMH8079-78-37 12:13:00 Test Item Value Reference Range Interpretation Comments Segs (test code = Segs) 63.5 45.0-75.0 [facility] ClubXsxwmcoMOSZHUSOZZ0440-11-21 12:13:00 Test Item Value Reference Range Interpretation Comments Monocytes # (test code 0.3 See_Comment [Aut omated message] The = Monocytes #) system which generated this result tra nsmitted reference range : <=0.8. The reference r jamaica was not used to int erpret this result as normal/abnormal . [facility] ClubOcdjyvrXAQBYGMPOE7401-52-64 12:13:00 Test Item Value Reference Range Interpretation Comments Basophils (test code = 0.2 See_Comment [Aut omated message] The Basophils) system which ge nerated this result tra nsmitted reference range : <=1.0. The reference r jamaica was not used to int erpret this result as normal/abnormal . [facility] ClubTjgnyhkONYDJHJZIE2900-49-20 12:13:00 Test Item Value Reference Range Interpretation Comments Lymphocytes # (test code = Lymphocytes 1.5 1.0-5.5 #) [facility] ClubRqdisluVALWDATHMW9158-73-11 12:13:00 Test Item Value Reference Range Interpretation Comments Segs-Bands # (test code = Segs-Bands #) 3.3 1.5-8.1 [facility] ClubZletctaYSHQBXTBTV7416-13-11 12:13:00 Test Item Value Reference Range Interpretation Comments Eosinophils # (test code 0.1 See_Comment [A utomated message] The = Eosinophils #) system whic h generated this result tra nsmitted reference range : <=0.5. The reference r jamaica was not used to int erpret this result as normal/abnormal . [facility] ClubScjiorrKLXHYJGJMX5855-72-48 12:13:00 Test Item Value Reference Range Interpretation Comments Lymphocytes (test code = Lymphocytes) 28.9 20.0-40.0 [facility] ClubQarvbwbGGTBXHRFBS0854-76-98 12:13:00 Test Item Value Reference Range Interpretation Comments Monocytes (test code = Monocytes) 6.2 2.0-12.0 [facility] ClubWnbrmmqTWLCKJGTRV2231-72-42 12:13:00 Test Item Value Reference Range Interpretation Comments Eosinophils (test code = 1.2 See_Comment [A utomated message] The Eosinophils) system which ge nerated this result tra nsmitted reference range : <=4.0. The reference r jamaica was not used to int erpret this result as normal/abnormal . [facility] ClubPeajglbAPMMGARQUN0301-47-95 12:13:00 Test Item Value Reference Range Interpretation Comments MCHC (test code = MCHC) 34.3 32.0-36.0 [facility] ClubBgoznlbKRYPHEENEY9304-02-00 12:13:00 Test Item Value Reference Range Interpretation Comments RDW (test code = RDW) 16.5 11.5-14.5 [facility] ClubQxhxasvFWWCXVBPSC1650-89-38 12:13:00 Test Item Value Reference Range Interpretation Comments MCH (test code = MCH) 31.5 pg 27.0-31.0 [facility] ClubExydocrNWOVUDWCYM9104-16-74 12:13:00 Test Item Value Reference Range Interpretation Comments MCV (test code = MCV) 91.9 81.0-99.0 [facility] ClubKfqavxyAIWBRARRNI6074-95-96 12:13:00 Test Item Value Reference Range Interpretation Comments Platelet (test code = Platelet) 177 133-450 [facility] ClubPmisowgNCAWGJUVTR8589-77-93 12:13:00 Test Item Value Reference Range Interpretation Comments MPV (test code = MPV) 7.9 7.4-10.4 [facility] ClubPqezbagIEYSPZRRJG4899-64-84 12:13:00 Test Item Value Reference Range Interpretation Comments RBC (test code = RBC) 3.91 4.20-5.40 [facility] ClubYngvhqdUBUNLZQFED0144-84-86 12:13:00 Test Item Value Reference Range Interpretation Comments Hct (test code = Hct) 35.9 36.0-48.0 [facility] ClubNjefgzkOJNDEHYDDR5038-37-02 12:13:00 Test Item Value Reference Range Interpretation Comments Hgb (test code = Hgb) 12.3 12.0-16.0 [facility] ClubZcljktmJAOISNUCLR5787-29-99 12:13:00 Test Item Value Reference Range Interpretation Comments WBC (test code = WBC) 5.1 3.7-10.4 [facility]2014-05-05 12:13:00 Test Item Value Reference Range Interpretation Comments Magnesium Lvl (test code = Magnesium 1.8 1.8-2.4 Lvl) [facility]2014-05-05 12:13:00 Test Item Value Reference Range Interpretation Comments Phosphorus (test code = Phosphorus) 2.6 2.5-4.5 [facility]2014-05-05 12:13:00 Test Item Value Reference Range Interpretation Comments Globulin (test code = Globulin) 2.8 2.0-4.0 [facility]2014-05-05 12:13:00 Test Item Value Reference Range Interpretation Comments A/G Ratio (test code = A/G Ratio) 1.2 0.7-1.6 [facility]2014-05-05 12:13:00 Test Item Value Reference Range Interpretation Comments B/C Ratio (test code = B/C Ratio) 10 6-25 [facility]2014-05-05 12:13:00 Test Item Value Reference Range Interpretation Comments AGAP (test code = AGAP) 6.9 10.0-20.0 [facility]2014-05-05 12:13:00 Test Item Value Reference Range Interpretation Comments eGFR (test code = eGFR) 101 [facility]2014-05-05 12:13:00 Test Item Value Reference Range Interpretation Comments Glucose Lvl (test code = Glucose Lvl) 84 70-99 [facility]2014-05-05 12:13:00 Test Item Value Reference Range Interpretation Comments Potassium Lvl (test code = Potassium 3.9 3.5-5.1 Lvl) [facility]2014-05-05 12:13:00 Test Item Value Reference Range Interpretation Comments Sodium Lvl (test code = Sodium Lvl) 141 135-145 [place] 634184-05-05 12:13:00 Test Item Value Reference Range Interpretation Comments Creatinine Lvl (test code = Creatinine 0.7 0.5-1.4 Lvl) [facility]2014-05-05 12:13:00 Test Item Value Reference Range Interpretation Comments BUN (test code = BUN) 7 7-22 [place] 634184-05-05 12:13:00 Test Item Value Reference Range Interpretation Comments Bili Total (test code = Bili Total) 0.3 0.2-1.3 [place] 634184-05-05 12:13:00 Test Item Value Reference Range Interpretation Comments Alk Phos (test code = Alk Phos) 71 39-136 [facility]2014-05-05 12:13:00 Test Item Value Reference Range Interpretation Comments AST (test code = AST) 21 See_Comment [Auto mated message] The system which ge nerated this result transmit ulysses reference range : <=37. The reference range was not used to interpr et this result as sharron l/abnormal. [facility]2014-05-05 12:13:00 Test Item Value Reference Range Interpretation Comments ALT (test code = ALT) 20 See_Comment [Auto mated message] The system which ge nerated this result transmit ulysses reference range : <=65. The reference range was not used to interpr et this result as sharron l/abnormal. [place] 634184-05-05 12:13:00 Test Item Value Reference Range Interpretation Comments Total Protein (test code = Total 6.1 6.4-8.4 Protein) [facility]2014-05-05 12:13:00 Test Item Value Reference Range Interpretation Comments CO2 (test code = CO2) 33 24-32 [facility]2014-05-05 12:13:00 Test Item Value Reference Range Interpretation Comments Albumin Lvl (test code = Albumin Lvl) 3.3 3.5-5.0 [facility]2014-05-05 12:13:00 Test Item Value Reference Range Interpretation Comments Calcium Lvl (test code = Calcium Lvl) 8.4 8.5-10.5 [facility]2014-05-05 12:13:00 Test Item Value Reference Range Interpretation Comments Chloride Lvl (test code = Chloride Lvl) 105 95-109 [facility] ClubNtjlulgFNXEKLIMDO2117-23-11 12:13:00 Test Item Value Reference Range Interpretation Comments Basophils # (test code 0.0 See_Comment [Aut omated message] The = Basophils #) system which generated this result tra nsmitted reference range : <=0.2. The reference r jamaica was not used to int erpret this result as normal/abnormal . [facility] ClubSbpsuufXBCNQGUBHG7521-81-30 12:13:00 Test Item Value Reference Range Interpretation Comments Segs (test code = Segs) 63.5 45.0-75.0 [facility] ClubAwqlonpIEPPPVKZHW6692-33-34 12:13:00 Test Item Value Reference Range Interpretation Comments Monocytes # (test code 0.3 See_Comment [Aut omated message] The = Monocytes #) system which generated this result tra nsmitted reference range : <=0.8. The reference r jamaica was not used to int erpret this result as normal/abnormal . [facility] ClubDsmnoroQSUXLXHUJM4266-71-75 12:13:00 Test Item Value Reference Range Interpretation Comments Basophils (test code = 0.2 See_Comment [Aut omated message] The Basophils) system which ge nerated this result tra nsmitted reference range : <=1.0. The reference r jamaica was not used to int erpret this result as normal/abnormal . [facility] ClubPudttmqEYKLZMCXPH6697-54-42 12:13:00 Test Item Value Reference Range Interpretation Comments Lymphocytes # (test code = Lymphocytes 1.5 1.0-5.5 #) [facility] ClubXxkvouyVPKUUBOYLZ6406-62-15 12:13:00 Test Item Value Reference Range Interpretation Comments Segs-Bands # (test code = Segs-Bands #) 3.3 1.5-8.1 [facility] ClubMqqidktIPBGPKODOM7374-66-58 12:13:00 Test Item Value Reference Range Interpretation Comments Eosinophils # (test code 0.1 See_Comment [A utomated message] The = Eosinophils #) system whic h generated this result tra nsmitted reference range : <=0.5. The reference r jamaica was not used to int erpret this result as normal/abnormal . [facility] ClubCscbsmqUJRIVBMAEO1087-49-27 12:13:00 Test Item Value Reference Range Interpretation Comments Lymphocytes (test code = Lymphocytes) 28.9 20.0-40.0 [facility] ClubXjposaoYYCFDCTQWJ4841-71-72 12:13:00 Test Item Value Reference Range Interpretation Comments Monocytes (test code = Monocytes) 6.2 2.0-12.0 [facility] ClubXvzkcmmIIFYULJOZH6754-90-96 12:13:00 Test Item Value Reference Range Interpretation Comments Eosinophils (test code = 1.2 See_Comment [A utomated message] The Eosinophils) system which ge nerated this result tra nsmitted reference range : <=4.0. The reference r jamaica was not used to int erpret this result as normal/abnormal . [facility] ClubMgwkdanNFXFNOPUZW4602-04-12 12:13:00 Test Item Value Reference Range Interpretation Comments MCHC (test code = MCHC) 34.3 32.0-36.0 [facility] ClubTvzdjxhYJFVRNZFRR8960-45-09 12:13:00 Test Item Value Reference Range Interpretation Comments RDW (test code = RDW) 16.5 11.5-14.5 [facility] ClubZeovnawEOUMXGJBEU4825-79-01 12:13:00 Test Item Value Reference Range Interpretation Comments MCH (test code = MCH) 31.5 pg 27.0-31.0 [facility] ClubEutdpctORLGEZNVOT2984-25-42 12:13:00 Test Item Value Reference Range Interpretation Comments MCV (test code = MCV) 91.9 81.0-99.0 [facility] ClubXhpnnhrTKXNNOMBBU2434-05-97 12:13:00 Test Item Value Reference Range Interpretation Comments Platelet (test code = Platelet) 177 133-450 [facility] ClubOkbkrejLZYKSUGNCN5695-78-51 12:13:00 Test Item Value Reference Range Interpretation Comments MPV (test code = MPV) 7.9 7.4-10.4 [facility] ClubCgshymeCKZPDQVVQQ2389-09-69 12:13:00 Test Item Value Reference Range Interpretation Comments RBC (test code = RBC) 3.91 4.20-5.40 [facility] ClubXghfueaQZXVXYIIGM5455-83-45 12:13:00 Test Item Value Reference Range Interpretation Comments Hct (test code = Hct) 35.9 36.0-48.0 [facility] ClubIbxvgzrTPBMURFYIA8410-33-05 12:13:00 Test Item Value Reference Range Interpretation Comments Hgb (test code = Hgb) 12.3 12.0-16.0 [facility] ClubUhtzrkmVKXWIVRIKF6713-45-17 12:13:00 Test Item Value Reference Range Interpretation Comments WBC (test code = WBC) 5.1 3.7-10.4 [facility] Notes Date/Time Note Provider Source 2021 17:23:00-00:00 [id number] [facility] [id number] [place] [id number] PATIENT NAME: RO MAYNARD ADMIT DATE: 1 ACCOUNT NO: [id number] ROOM NO: [id number] AGE: 56 REPORT TYPE: CONSULTATION SEX: F ADMITTING PHYSICIAN: Jaiden Antunez MD ATTENDING PHYSICIAN: Shadi Carcamo MD CONSULTATION DATE: CONSULTING PHYSICIAN: Dawson Ramírez MD ATTENDING PHYSICIAN: Shadi Carcamo MD. REASON FOR CONSULTATION: Intractable nausea, vom iting, abdominal pain, epigastric and right upper quadrant. HISTORY OF PRESENT ILLNESS: The patient is a 56-year-old woman who has been to [facility] multiple times for similar sympt oms of [...] workup as an outpatient. WT: CON:L.HIM/SIDUM/NTS Conf#: [id number]/DID#: [id number] (ADDENDUM) Dictated By: Dawson Ramírez MD WT: CON:L.HIM/SIDUM/NTS Conf#: [id number]/DID#: [id number] Authenticated by Dawson Ramírez MD On 01:50:51 PM at 1351 PATIENT NAME: RO MAYNARD 9001 2021 10:28:00-00:00 [facility] Hospitalist Progress Note REPORT#:[id number] REPORT STATUS: Signed DATE:02/26/21 TIME:1028 PATIENT: RO MAYNARD UNIT #: [id number] ROOM/BED: [place] [id number] : 61 AGE: 56 SEX: F ATTEND: Xiomara Antunez MD ADM AUTHOR: Shadi Carcamo MD * ALL edits or amendments must be made on the el [employer]computer document * Subjective Chief Complaint: No acute [...] % (Auto) (20.5 - 51.1 %) 28.9 [place] % (Auto) (1.7 - 9.3 %) 5.4 Eos % (Auto) (0.0 - 6.0 %) 0.3 Baso % (Auto) (0.0 - 2.0 %) 0.3 Neut # (Auto) (1.8 - 7.6 K/mm3) 2.5 Lymph # (Auto) (0.6 - 3.2 K/mm3) 1.1 [place] # (Auto) (0.3 - 1.1 K/mm3) 0.2 [...] Carcamo MD on at 1533 RPT #: [id number] END OF REPORT 2021-02-25 17:16:00-00:00 [facility] ([facility]) Hospitalist History Physical REPORT#:[id number] REPORT STATUS: Signed DATE:02/25/21 TIME:1716 PATIENT: RO MAYNARD UNIT #: [id number] ROOM/BED: [place] [address] : 63 AGE: 55 SEX: F ATTEND: Xiomara Antunez MD ADM AUTHOR: Jaiden Antunez MD * ALL edits or amendments must be made on the [employer]/computer document * History of Present Illness HPI [...] Crohn's disease diagnosed 15 years ago in [place] but for the pa st 4 years she has not been able to get her treated since she moved to [place] She also has rheumatoid arthritis for which [...] B/P 130/69 / 1304 B/P Mean 89 /01 1304 O2 Delivery Room air 02/25 1304 Temp 36.5 / 1304 Pulse 72 / 1304 Resp 18 02/25 1304 Patient Weight [...] Glomerular Filtr Rate (>60 estGFR) >=60 max es timate Glucose (70 - 110 MG/DL) 83 Calcium [...] % (Auto) (20.5 - 51.1 %) 33.6 [place] % (Auto) (1.7 - 9.3 %) 7.4 Eos % (Auto) (0.0 - 6.0 %) 0.8 Baso % (Auto) (0.0 - 2.0 %) 0.2 Neut # (Auto) (1.8 - 7.6 K/mm3) 3.1 Lymph # (Auto) (0.6 - 3.2 K/mm3) 1.8 [place] # (Auto) (0.3 - 1.1 K/mm3) 0.4 [...] - 7.0 pH UNITS) 7.0 Ur Specific [place] (1.005 - 1.030 SG) <=1.005 Urine Protein [...] positive Extremities no pedal edema pulses palpable 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 x3 moving all 4 extremities [...] Antunez MD on at 1725 RPT #: [id number] END OF REPORT 2021-02-25 13:33:00-00:00 [facility] ([facility]) EMERGENCY PROVIDER REPORT REPORT#:[id number] REPORT STATUS: Signed DATE:02/25/21 TIME:1333 PATIENT: RO MAYNARD UNIT #: [id number] ROOM/BED: [place] [address] : 63 AGE: 55 SEX: F PCP PHYS: Willian Escalante MD SERVICE AUTHOR: Bhavna Mulligan * ALL edits or amendments must be made on the [employer]/computer document * HPI-Abd Pain F 40 and Over General Initial Greet Date/Time 02/25/21 1309 Presentation Chief Complaint Abdominal pain Sudden in Onset? No Free Text HPI Notes Free Text HPI Notes 55-year-old female past medi yesy history of rheumatoid arthritis, Crohn's disease , hepatitis C status post hy sterectomy, appendectomy, and bladder sling surgery reports to ED complaining of right-sided abdominal pain for the past week which is getting worse she says it now radiates to her periumbilical area. She has associated nausea, vomiting, and diarrhea. She w as seen and evaluated at [facility] yesterday where s he had an ultrasound and a CT. Patient states there were no gallstones but does not note any further particulars on the results. She followed up with her PCP, Dr John Escalante, today in clinic who advised her to come to [facility] ER for further work-up and asked the [...] % (Auto) (20.5 - 51.1 %) 33.6 [place] % (Auto) (1.7 - 9.3 %) 7.4 Eos % (Auto) (0.0 - 6.0 %) 0.8 Baso % (Auto) (0.0 - 2.0 %) 0.2 Neut # (Auto) (1.8 - 7.6 K/mm3) 3.1 Lymph # (Auto) (0.6 - 3.2 K/mm3) 1.8 [place] # (Auto) (0.3 - 1.1 K/mm3) 0.4 [...] - 7.0 pH UNITS) 7.0 Ur Specific [place] (1.005 - 1.030 SG) <=1.005 Urine Protein [...] the ED with patient and/or family and [facility] alist was updated on admission of code [...] Consultation Consultation Referral/Consult Name Dawson Ramírez MD Hardening Machine Operator Helper Called Gastroenterology Requested Call Time 1448 Requested Call Date 02/25/21 Call Returned Call returned Call Returned Time 1505 Call Returned Date 02/25/21 Hardening Machine Operator Helper Will see patient, Agrees with plan Free [...] Mulligan on 09/17 at 1536 RPT #: [id number] END OF REPORT 2021-02-25 13:33:00-00:00 [facility] ([facility]) EMERGENCY PROVIDER REPORT REPORT#:[id number] REPORT STATUS: Signed DATE:02/25/21 TIME:1332 PATIENT: RO MAYNARD UNIT #: [id number] ROOM/BED: [place] [address] : 63 AGE: 55 SEX: F PCP [...] Free Text HPI Notes 55-year-old female past medi yesy history of rheumatoid arthritis, Crohn's disease , hepatitis C status post hy sterectomy, appendectomy, and bladder sling surgery reports to ED complaining of right-sided abdominal pain for the past week which is getting worse she says it now radiates to her periumbilical area. She has associated nausea, vomiting, and diarrhea. She w as seen and evaluated at [facility] yesterday where s he had an ultrasound and a CT. Patient states there were no gallstones but does not note any further particulars on the results. She followed up with her PCP, Dr John Escalante, today in clinic who advised her to come to [facility] ER for further work-up and asked the [...] 1304 Temp 36.5 02/25 1304 Pulse 72 / 1304 Resp 18 [...] % (Auto) (20.5 - 51.1 %) 33.6 [place] % (Auto) (1.7 - 9.3 %) 7.4 Eos % (Auto) (0.0 - 6.0 %) 0.8 Baso % (Auto) (0.0 - 2.0 %) 0.2 Neut # (Auto) (1.8 - 7.6 K/mm3) 3.1 Lymph # (Auto) (0.6 - 3.2 K/mm3) 1.8 [place] # (Auto) (0.3 - 1.1 K/mm3) 0.4 [...] - 7.0 pH UNITS) 7.0 Ur Specific [place] (1.005 - 1.030 SG) <=1.005 Urine Protein [...] palpation with guarding. She is asking for rebeca tional pain medications. We will go ahead and order that. ED Course Medication(s) Ordered Medication(s) Ordered: Central Nervous System Agents Sig/Jasmina Start time Last Medication Dose Route Stop Time Status Admin Morphine Sulfate 4 MG X1ED STA 02/25 1315 DC 0 02/25 IV 02/25 1316 1343 Electrolytic, Caloric, And Terrie Sig/Jasmina Start time Last Medication Dose Route Stop Time Status Admin Sodium Chloride 1,000 ML X1ED STA 02/25 1315 DC 07 IV 02/25 1415 1342 Gastrointestinal Drugs Sig/Jasmina Start time Last Medication Dose Route Stop Time Status Admin Ondansetron HCl 4 MG X1ED PRN PRN 02/25 1315 DC 07 IV 02/26 1314 1342 Consultation Consultation Referral/Consult Name Dawson Ramírez MD Hardening Machine Operator Helper Called Gastroenterology Requested Call Time 1448 Requested Call Date 02/25/21 Call Returned Call returned Call Returned Time 1505 Call Returned Date 02/25/21 Hardening Machine Operator Helper Will see patient, Agrees with plan Free Text Consult Notes 15:20: called back with imaging results from [facility]. Wants patient admitted and MRCP, he will consult. Patient Discharge Departure Vital Signs/Condition Vital Signs First Documented: Result Date Time Pulse Ox 100 02/25 1304 B/P 130/69 1304 B/P Mean 89 07/ 1304 O2 Delivery Room air / 1304 Temp 36.5 07/ 1304 Pulse 72 07/ 1304 Resp 18 02/25 1304 Last Documented: Result Date Time Pulse Ox 100 07/ 1304 B/P 130/69 07/ 1304 B/P Mean 89 07/01 1304 O2 Delivery Room air 07/ 1304 [...] Saw Pt Alone I have reviewed the PA/UPHOLSTERER OUTSIDE's note and plan of car e. I was available for consultation as needed at al l times during the patient's visit in the emergency department. I agree with the clinical impression , plan and disposition. Electronically Signed by Bhavna Mulligan on 09/17 at 1536 Electronically Signed by Ezekiel Praaksh DO on 09/17 at 1739 [facility] #: [id number] END OF REPORT 2015-02-04 10:25:00-00:00 MRI lumbar spine without contrast. [facility] OPID Patience HISTORY: Lumbago. Increasing right leg numbness, pain, [...] 2. No acute findings identified. SL: 03 2015-02-04 10:25:00-00:00 MRI lumbar spine without contrast. MH OPID Patience HISTORY: Lumbago. Increasing right leg numbness, pain, [...] changes. 2. No acute findings identified. SL: 2015-02-04 10:25:00-00:00 MRI lumbar spine without contrast. OPID Patience HISTORY: Lumbago. Increasing right leg numbness, pain, [...] changes. 2. No acute findings identified. SL: 2015-02-04 09:10:00-00:00 PROCEDURE: MRI CERVICAL SPINE WITHOUT CONTRAST LINDA Morin INDICATION: 724.4 Thoracic o r Lumbosacral Neuritis or Radiculitis, Unspecified . Patient [...] bilateral neuroforamina narrowing. C7-T1: Negative. IMPRESSION: Cervical spondyl osis with neuroforaminal narrowing as described above. Negative for disc herniation SL: 2015-02-04 09:10:00-00:00 PROCEDURE: MRI CERVICAL SPINE WITHOUT CONTRAST LINDA Morin INDICATION: 724.4 Thoracic o r Lumbosacral Neuritis or Radiculitis, Unspecified . Patient [...] bilateral neuroforamina narrowing. C7-T1: Negative. IMPRESSION: Cervical spondyl osis with neuroforaminal narrowing as described above. Negative for disc herniation SL: 2015-02-04 09:10:00-00:00 PROCEDURE: MRI CERVICAL SPINE WITHOUT CONTRAST J CARLOS Morin INDICATION: 724.4 Thoracic o r Lumbosacral Neuritis or Radiculitis, Unspecified . Patient [...] bilateral neuroforamina narrowing. C7-T1: Negative. IMPRESSION: Cervical spondyl osis with neuroforaminal narrowing as described above. Negative for disc herniation SL: 2015-01-05 10:14:32-00:00 SACROILIAC JOINT SERIES [facility] CLINICAL HISTORY: Low back pain. COMPARISON IMAGING: None. FINDINGS: Three views were submitted f or evaluation. No fracture, dislocation, or radiopaque foreign body is seen. There is no evidence of an inflammatory or degenerative arthritis. Soft tissues are unremarkable. IMPRESSION: No significant abnormality. 2015-01-05 10:14:32-00:00 Left elbow 2 views: No acute osseous injury or evidence of arthritis identified. No evidence of elbow joint effusion. [facility] Right elbow 2 views: No acut e osseous injury or arthritis identified. No joint effusion identified. IMPRESSION: 1. Unremarkable exam. 2015-01-05 10:14:32-00:00 SACROILIAC JOINT SERIES [facility] CLINICAL HISTORY: Low back pain. COMPARISON IMAGING: None. FINDINGS: Three views were submitted f or evaluation. No fracture, dislocation, or radiopaque foreign body is seen. There is no evidence of an inflammatory or degenerative arthritis. Soft tissues are unremarkable. IMPRESSION: No significant abnormality. 2015-01-05 10:14:32-00:00 Left elbow 2 views: No acute osseous injury or evidence of arthritis identified. No evidence of elbow joint effusion. [facility] Right elbow 2 views: No acut e osseous injury or arthritis identified. No joint effusion identified. IMPRESSION: 1. Unremarkable exam. 2015-01-05 10:14:32-00:00 SACROILIAC JOINT SERIES [facility] CLINICAL HISTORY: Low back pain. COMPARISON IMAGING: None. FINDINGS: Three views were submitted f or evaluation. No fracture, dislocation, or radiopaque foreign body is seen. There is no evidence of an inflammatory or degenerative arthritis. Soft tissues are unremarkable. IMPRESSION: No significant abnormality. 2015-01-05 10:14:32-00:00 Left elbow 2 views: No acute osseous injury or evidence of arthritis identified. No evidence of elbow joint effusion. [facility] Right elbow 2 views: No acut e osseous injury or arthritis identified. No joint effusion identified. IMPRESSION: 1. Unremarkable exam. 2014-05-20 07:04:16-00:00 STUDY: Chest one view. [facility] COMPARISON: None HISTORY: Hypertension. FINDINGS: The lungs are clear. No dens e focal consolidation is seen. No pleural effusion or pneumothorax is seen. The heart is normal in size. The osseous structures are unremarkable. IMPRESSION: No acute cardiopulmonary process. 2014-05-20 07:04:16-00:00 STUDY: Chest one view. [facility] COMPARISON: None HISTORY: Hypertension. FINDINGS: The lungs are clear. No dens e focal consolidation is seen. No pleural effusion or pneumothorax is seen. The heart is normal in size. The osseous structures are unremarkable. IMPRESSION: No acute cardiopulmonary process. 2014-05-20 07:04:16-00:00 STUDY: Chest one view. [facility] COMPARISON: None HISTORY: Hypertension. FINDINGS: The lungs are clear. No dens e focal consolidation is seen. No pleural effusion or pneumothorax is seen. The heart is normal in size. The osseous structures are unremarkable. IMPRESSION: No acute cardiopulmonary process. 2014-01-02 09:12:00-00:00 HISTORY: Abdominal pain. [facility] Two views abdomen. Comparison 01/01/2014. Resid ual contrast within the colon unchanged from previous. No small bowel distention or obstruction identified. No fluid level or free air. There are atelectatic changes in both lung bases. SL:13 2014-01-02 09:12:00-00:00 HISTORY: Abdominal pain. [facility] Two views abdomen. Comparison 01/01/2014. Resid ual contrast within the colon unchanged from previous. No small bowel distention or obstruction identified. No fluid level or free air. There are atelectatic changes in both lung bases. SL:13 2014-01-02 09:12:00-00:00 HISTORY: Abdominal pain. [facility] Two views abdomen. Comparison 01/01/2014. Resid ual contrast within the colon unchanged from previous. No small bowel distention or obstruction identified. No fluid level or free air. There are atelectatic changes in both lung bases. SL:13 2014-01-01 08:00:00-00:00 ABDOMEN 2 VIEWS: There is no bowel distention. Contrast in the colon is seen with further transit and partial clearance since the exam on the previous day. There is no evidence of pneumoperitoneum. There are no other changes. [facility] SL:13 2014-01-01 08:00:00-00:00 ABDOMEN 2 VIEWS: There is no bowel distention. Contrast in the colon is seen with further transit and partial clearance since the exam on the previous day. There is no evidence of pneumoperitoneum. There are no other changes. [facility] SL:13 2014-01-01 08:00:00-00:00 ABDOMEN 2 VIEWS: There is no bowel distention. Contrast in the colon is seen with further transit and partial clearance since the exam on the previous day. There is no evidence of pneumoperitoneum. There are no other changes. Miguel SL:13
[2023-03-28 08:20] LABS: Absolute Lymphocytes (CBC) 1.7 K/uL (0.7-4.9); Hematocrit 41.2 % (36.0-45.0); Lymphocytes % 32.6 % (15.3-44.8); MCV 92.1 fL (80-100); MPV 8.9 fL (7.6-11.3); RBC Red Blood Cell Count 4.48 M/uL (3.86-4.86)
[2023-03-28 08:21] LABS: Protime INR 0.97
[2023-03-28 08:33] LABS: Magnesium 2.1 mg/dL (1.6-2.4); Potassium 4.2 mEq/L (3.5-5.1); Troponin High Sensitivity 3.3 pg/mL (<58.9)
--- NOTE | 2023-03-28 08:38 | RAD REPORT ---
EXAM DESCRIPTION: RAD - Chest Single View - 03/28/2023 8:23 am CLINICAL HISTORY: CHEST PAIN Chest pain. COMPARISON: Chest Single View dated 01/22/2023; Chest Single View dated 10/04/2022; Chest Single View d ated 05/12/2022; Chest Single View dated 02/16/2021 FINDINGS: Portable technique limits examination quality. The lungs are grossly clear. The heart is normal in size. No displaced fractures.Cervical hardware pl ate. IMPRESSION: No acute intrathoracic process suspected.
--- NOTE | 2023-03-28 09:06 | RAD REPORT ---
EXAM DESCRIPTION: CT - Chest For Pe Angio - 03/28/2023 8:57 am CLINICAL HISTORY: Chest pain. left inferior rib tenderness/pain with cough COMPARISON: Lung Cancer Screening CT W/O dated 10/10/2022 TECHNIQUE: CT angiogram of the pulmonary arteries was performed with MIP. All CT scans are performed using dose optimization technique as appropriate and may include automated exposure control or mA/KV adjustment according to patient size. FINDINGS: No evidence of pulmonary thromboembolism. No acute aortic finding demonstrated. The lungs are mildly emphysematous with linear atelectasis in both lung bases. No significant pericardial or pleural fluid. No concerning bony finding. IMPRESSION: No evidence of pulmonary thromboembolism. COPD with mild atelectasis in both posterior lung bases.
--- NOTE | 2023-03-28 09:26 | EDPHYS ---
Physician Documentation [facility] Name: Tita Elizabeth Age: 58 yrs Sex: Female : 1965 Arrival Date: 03/28/2023 Time: 07:[address] Private MD: Kamari Escalante V ED Physician Nicolas Tobar HPI: 03/28 08:38 This 58 yrs old Female presents to ER via Ambulatory with complaints of pain when rn taking a breath/cough. 08:38 The patient or guardian reports chest pain that is located primarily in the left rn lateral anterior chest. Onset: 4 day(s) ago. The pain does not radiate. Associated signs and symptoms: Pertinent negatives: abdominal pain, palpitations, shortness of breath, syncope, vomiting. The chest pain is described as sharp, stabbing. Duration: The patient or guardian reports multiple episodes, that are intermittent. Modifying factors: The symptoms are alleviated by nothing. the symptoms are aggravated by cough, deep breath. Severity of pain: At its worst the pain was moderate in the emergency department the pain is unchanged. The patient has experienced a previous episode. Pt reports left sided chest pain along left lower ribs, worse with cough, not a new cough and smokes, and denies trauma. Reports hurts near scar where "fluid was removed in 2017". Denies drainage tube, instead implies superficial incision and drainage. No trauma. No fever. Does not feel ill. Points at ribs, and denies abd pain. . Historical: - Allergies: 07:50 Sulfa (Sulfonamide Antibiotics); ap3 - Home Meds: 07:50 atorvastatin Oral 1 tab [Active]; losartan Oral [Active]; Aspirin Oral [Active]; ap3 Hydrocodone-Acetaminophen Oral [Active]; Methocarbamol Oral [Active]; Zoloft Oral [Active]; - PMHx: 07:50 Arthritis; Colitis; Crohn's Disease; HTN; ap3 - PSHx: 07:50 Appendectomy; hysterectomy; kyphoplasty; Neck surgery, titanium cage; Tonsillectomy; ap3 - Immunization history:: Client reports receiving the 2nd dose of the Covid vaccine. - Social history:: Smoking status: Patient reports the use of cigarette tobacco products, smokes one pack cigarettes per day. - Family history:: not pertinent. - Hospitalizations: : No recent hospitalization is reported. ROS: 08:38 Constitutional: Negative for fever, chills, and weight loss, Cardiovascular: Negative rn for palpitations, and edema, Respiratory: Negative for shortness of breath, wheezing Abdomen/GI: Negative for abdominal pain, nausea, vomiting, diarrhea, and constipation, Back: Negative for injury and pain, : Negative for injury, bleeding, discharge, and swelling, MS/Extremity: Negative for injury and deformity, Skin: Negative for injury, rash, and discoloration, Neuro: Negative for headache, weakness, numbness, tingling, and seizure. Exam: 08:38 Constitutional: This is a well developed, well nourished patient who is awake, alert, rn and in no acute distress. Chest/axilla: Normal chest wall appearance and motion. Mild tenderness near and around previous scar that is approx 2-3cm, no induration/fluctuance, and has globular mobile tissue underneath scar. Cardiovascular: Regular rate and rhythm. No pulse deficits. Respiratory: No increased work of breathing, no retractions or nasal flaring. No wheezing noted. Abdomen/GI: soft, non-tender Skin: Warm, dry, no lesions to indicate shingles MS/ Extremity: Pulses equal, no cyanosis. Neuro: Awake and alert, GCS 15 08:53 ECG was reviewed by the Attending Physician. rn Vital Signs: 07:47 BP 119 / 89; Pulse 66; Resp 17; Temp 97.7; Pulse Ox 95% on R/A; Weight 58.97 kg; Pain ap3 8/10; 08:21 BP 101 / 84; Pulse 59; Pulse Ox 94% on R/A; ap3 09:28 BP 106 / 72; Pulse 78; Resp 18; Pulse Ox 94% on R/A; ap3 07:47 Pain Scale: Adult ap3 MDM: 07:38 Patient medically screened. rn 09:23 Differential diagnosis: acute pericarditis, anxiety, chest wall pain, costochondritis, rn esophagitis, pleurisy, pneumonia, pneumothorax, pulmonary embolus. Data reviewed: vital signs, nurses notes, lab test result(s), EKG, radiologic studies, CT scan, plain films, and as a result, I will discharge patient. Counseling: I had a detailed discussion with the patient and/or guardian regarding: the historical points, exam findings, and any diagnostic results supporting the discharge/admit diagnosis, lab results, radiology results, the need for outpatient follow up, to return to the emergency department if symptoms worsen or persist or if there are any questions or concerns that arise at home. Response to treatment: the patient's symptoms have mildly improved after treatment, and as a result, I will discharge patient. Special discussion: I discussed with the patient/guardian in detail that at this point there is no indication for admission to the hospital. It is understood, however, that if the symptoms persist or worsen the patient needs to return immediately for re-evaluation. ED course: NO acute findings on workup, afebrile, nothing seen on imaging, neg for PE. Will dc home with return precautions, already has norco. Could be early infection vs pleurisy vs COPD vs atelectasis. . 03/28 07:54 Order name: BMP; Complete Time: 08:35 rn 03/28 07:54 Order name: Blood Culture Adult (2) rn 03/28 07:54 Order name: CBC with Diff; Complete Time: 08:35 rn 03/28 07:54 Order name: Magnesium; Complete Time: 08:35 rn 03/28 07:54 Order name: NT PRO-BNP; Complete Time: 08:35 rn 03/28 07:54 Order name: PT-INR; Complete Time: 08:35 rn 03/28 07:54 Order name: Ptt, Activated; Complete Time: 08:35 rn 03/28 07:54 Order name: Troponin HS; Complete Time: 08:35 rn 03/28 07:54 Order name: CT Chest For PE Angio; Complete Time: 09:09 rn 03/28 07:54 Order name: XRAY CXR (1 view); Complete Time: 08:45 rn 03/28 07:54 Order name: EKG; Complete Time: 07:54 rn 03/28 07:54 Order name: Cardiac monitoring; Complete Time: 08:20 rn 03/28 07:54 Order name: EKG - Nurse/Tech; Complete Time: 08:20 rn 03/28 07:54 Order name: IV Saline Lock; Complete Time: 08:10 rn 03/28 07:54 Order name: Labs collected and sent; Complete Time: 08:10 rn 03/28 07:54 Order name: O2 Per Protocol; Complete Time: 07:54 rn 03/28 07:54 Order name: O2 Sat Monitoring; Complete Time: 07:54 rn EC:53 Rate is 62 beats/min. Rhythm is regular. QRS [place] is Normal. AR interval is normal. QRS rn interval is normal. QT interval is normal. No Q waves. T waves are Normal. No ST changes noted. Clinical impression: NSR w/ Non-specific ST/T Changes. Interpreted by me. Reviewed by me. Administered Medications: 09:27 Drug: Ketorolac IVP 15 mg Route: IVP; Site: left antecubital; ap3 09:38 Follow up: Response: No adverse reaction ap3 Disposition Summary: 03/28/23 09:25 Discharge Ordered Location: Home rn Problem: new rn Symptoms: have improved rn Condition: Stable rn Diagnosis - Chest pain, unspecified rn Followup: rn - With: Private Physician - When: As needed - Reason: Recheck today's complaints, Re-evaluation by your physician Discharge Instructions: - Discharge Summary Sheet rn - Nonspecific Chest Pain, Adult rn - Pain Without a Known Cause rn - Pleurisy rn - Steps to Quit Smoking rn Forms: - Medication Reconciliation Form rn - Thank You Letter rn - Antibiotic rn admit - Prescription Opioid Use rn - Patient Portal Instructions rn Prescriptions: - Doxycycline Monohydrate 100 mg Oral Tablet - take 1 tablet by ORAL route every 12 hours for 10 days; 20 tablet; Refills: 0, rn Product Selection Permitted Signatures: Dispatcher [employer] Nicolas Arreguin MD MD rn Prokisch, Amanda, RN RN ap3
--- NOTE | 2023-03-28 09:26 | ER ---
Nurse's Notes [facility] Name: Tita Elizabeth Age: 58 yrs Sex: Female : 1965 Arrival Date: 03/28/2023 Time: 07:[address] Private MD: Kamari Escalante V Diagnosis: Chest pain, unspecified Presentation: 03/28 07:47 Chief complaint: Patient states: she is having left sided abdominal pain near a ap3 previous sx site. patient reports this pain to be a 8/10 on the pain scale at this time. Patient states that she had to "have fluid removed from the site in 2017". Coronavirus screen: At this time, the client does not indicate any symptoms associated with coronavirus-19. Ebola Screen: No symptoms or risks identified at this time. Initial Sepsis Screen: Does the patient meet any 2 criteria? No. Patient's initial sepsis screen is negative. Does the patient have a suspected source of infection? No. Patient's initial sepsis screen is negative. Risk Assessment: Do you want to hurt yourself or someone else? Patient reports no desire to harm self or others. Onset of symptoms was March 27, 2023. 07:47 Method Of Arrival: Ambulatory ap3 07:47 Acuity: JAY 3 ap3 Triage Assessment: 07:52 General: Appears uncomfortable, Behavior is calm, cooperative, appropriate for age. ap3 Pain: Complains of pain in anterior aspect of left lateral abdomen and left lower quadrant Pain currently is 8 out of 10 on a pain scale. Pain began gradually. Neuro: Level of Consciousness is awake, alert, obeys commands, Oriented to person, place, time, situation. Cardiovascular: Patient's skin is warm and dry. Respiratory: Airway is patent Respiratory effort is even, unlabored, Respiratory pattern is regular, symmetrical. Historical: - Allergies: 07:50 Sulfa (Sulfonamide Antibiotics); ap3 - Home Meds: 07:50 atorvastatin Oral 1 tab [Active]; losartan Oral [Active]; Aspirin Oral [Active]; ap3 Hydrocodone-Acetaminophen Oral [Active]; Methocarbamol Oral [Active]; Zoloft Oral [Active]; - PMHx: 07:50 Arthritis; Colitis; Crohn's Disease; HTN; ap3 - PSHx: 07:50 Appendectomy; hysterectomy; kyphoplasty; Neck surgery, titanium cage; Tonsillectomy; ap3 - Immunization history:: Client reports receiving the 2nd dose of the Covid vaccine. - Social history:: Smoking status: Patient reports the use of cigarette tobacco products, smokes one pack cigarettes per day. - Family history:: not pertinent. - Hospitalizations: : No recent hospitalization is reported. Screenin:53 [facility] ED Fall Risk Assessment (Adult) History of falling in the last 3 months, ap3 including since admission No falls in past 3 months (0 pts). Abuse screen: Denies threats or abuse. Nutritional screening: No deficits noted. Tuberculosis screening: No symptoms or risk factors identified. Vital Signs: 07:47 BP 119 / 89; Pulse 66; Resp 17; Temp 97.7; Pulse Ox 95% on R/A; Weight 58.97 kg; Pain ap3 8/10; 08:21 BP 101 / 84; Pulse 59; Pulse Ox 94% on R/A; ap3 09:28 BP 106 / 72; Pulse 78; Resp 18; Pulse Ox 94% on R/A; ap3 07:47 Pain Scale: Adult ap3 ED Course: 07:37 Patient arrived in ED. am2 07:37 Kamari Escalante MD is Private Physician. am2 07:38 Nicolas Tobar MD is Attending Physician. rn 07:47 Veilka Stephen RN is Primary Nurse. ap3 07:50 Triage completed. ap3 07:53 Arm band placed on right wrist. ap3 07:53 Patient has correct armband on for positive identification. Bed in low position. Call ap3 light in reach. Side rails up X 1. Pulse ox on. NIBP on. 08:05 Initial lab(s) drawn, by oh, sent to lab. First set of blood cultures drawn by oh. ap3 Inserted saline lock: 20 gauge in left antecubital area, using aseptic technique. Blood collected. 08:12 Second set of blood cultures drawn by me. ap3 08:24 XRAY CXR (1 view) In Process Unspecified. EDMS 08:59 CT Chest For PE Angio In Process Unspecified. EDMS 09:37 No provider procedures requiring assistance completed. IV discontinued, intact, ap3 bleeding controlled, No redness/swelling at site. Pressure dressing applied. 09:38 Provided Education on: discharge education. ap3 Administered Medications: 09: Drug: Ketorolac IVP 15 mg Route: IVP; Site: left antecubital; ap3 09:38 Follow up: Response: No adverse reaction ap3 Medication: :38 VIS not applicable for this client. ap3 Outcome: : Discharge ordered by . rn :38 Discharged to home ambulatory. ap3 :38 Condition: good :38 Discharge instructions given to patient, Instructed on discharge instructions, follow up and referral plans. medication usage, Demonstrated understanding of instructions, follow-up care, medications, Prescriptions given X 1. :38 Patient left the ED. ap3 Signatures: Dispatcher [employer] EDMS Nicolas Tobar MD MD rn Moreno, Amanda am2 Prokisch, Amanda, RN RN ap3
[2023-03-28] MEDS ORDERED: KETOROLAC 30 MG/ML INJ ONE (09:34)
[2023-03-28 10:01] VITALS: TEMP 97.7
[2023-03-28 10:02] VITALS: O2SAT 94
[2023-03-28 10:03] VITALS: BP 106/72
--- NOTE | 2023-03-29 17:39 | EKG ---
Test Date: 2023-03-28 Test Time: 08:14:01 [employer] Manager: RENAN MEASUREMENT RESULTS: Intervals: Rate: 62 CA: 156 QRSD: 136 QT: 444 QTc: 450 Lewis: P: 45 CA: 156 QRS: -20 T: 4 INTERPRETIVE STATEMENTS: Normal sinus rhythm Right bundle branch block Abnormal ECG Compared to ECG 01/22/2023 12:20:15 Sinus bradycardia no longer present Electronically Signed On 03-29-23 17:34:36 CDT by Louie Dowling
== END 2023-03-28 09:38 | disposition home or self-care (01) ==
LOC: ER 07:36
DX: R07.89 Other chest pain (principal); I10 Essential (primary) hypertension; F17.210 Nicotine dependence, cigarettes, uncomplicated; Z88.2 Allergy status to sulfonamides; Z79.82 Long term (current) use of aspirin
CPT/HCPCS: 87040 ×2; 85025; 80048; 36415; 83735; 85610; 85730; 84484; 83880; 71275; 71045; Q9967; 93005

== ENCOUNTER 2023-03-30 13:27 | Emergency (ER) | payer OTHER ==
[2023-03-30] MEDS ORDERED: MORPHINE 4 MG/ML SYR ONE (13:46)
[2023-03-30] MEDS ORDERED: ONDANSETRON 4 MG/2 ML VIAL ONE (13:46)
[2023-03-30 13:48] LABS: Absolute Lymphocytes (CBC) 2.7 K/uL (0.7-4.9); Hematocrit 40.6 % (36.0-45.0); MCV 92.9 fL (80-100); MPV 8.2 fL (7.6-11.3); RBC Red Blood Cell Count 4.37 M/uL (3.86-4.86)
--- OUTSIDE RECORDS SUMMARY | 2023-03-30 13:54 | XMS REPORT | Continuity of Care Document ---
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 500 mg 3-10 tablet by ity o f tablet 00:00: mouth in [place] 00 the Medical morning Branch and 1 tablet in the evening. methocarbam 2-0 Yes 500mg Take 1 Uni vers oL 500 mg 3-10 tablet by ity o f tablet 00:00: mouth in the Medical morning Branch and 1 tablet in the evening. methocarbam 2022-0 Yes 500mg Q.5D Take [address] oL 3-10 mg by [facility] (ROBAXIN) 00:00: mouth 2 Medic al 500 MG 00 (two) Center tablet times daily. methocarbam 2-0 [...] TABLET BY ity of tablet 00:00: MOUTH [place] EVERY DAY Medical FOR 14 Branch DAYS [...] Branch daily. buPROPion 2-0 Yes 150mg Take 1 Unive rs SR 150 mg 1-11 tablet by ity o f SR tablet 00:00: mouth in the Medical morning Branch and 1 tablet in the evening. buPROPion 2022-0 Yes 150mg Take 1 Unive rs SR 150 mg 1-11 tablet by ity o f SR tablet 00:00: mouth in the Medical morning Branch and 1 tablet in the evening. buPROPion 2-0 Yes 150mg Take 1 Unive rs SR 150 mg 1-11 tablet by ity o f SR tablet 00:00: mouth in the Medical morning Branch and 1 tablet in the evening. oxybutynin 2019-08 Yes 10mg Take 1 [facility] 10 mg 24 hr 1-05 tablet by ity of tablet 00:00: mouth [place] 00 daily. [facility] oxybutynin 2019-08 Yes [id number] 10mg Take 1 [facility] 10 mg 24 hr 1-05 tablet by ity of tablet 00:00: mouth [place] 00 daily. [facility] oxybutynin 2019-08 Yes 10mg Take 1 [facility] 10 mg 24 hr 1-05 tablet by ity of tablet 00:00: mouth [place] 00 daily. [facility] oxybutynin 2019-08 Yes 10mg Take 1 [facility] 10 mg 24 hr 1-05 tablet by ity of tablet 00:00: mouth [place] 00 daily. [facility] oxybutynin 2019-08 Yes [id number] 10mg Take 1 [facility] 10 mg 24 hr 1-05 tablet by ity of tablet 00:00: mouth [place] 00 daily. [facility] oxybutynin 2019-08 Yes 10mg Take 1 [facility] 10 mg 24 hr 1-05 tablet by ity of tablet 00:00: mouth [place] 00 daily. [facility] oxybutynin 2019-08 Yes 10mg Take 1 [facility] 10 mg 24 hr 1-05 tablet by ity of tablet 00:00: mouth [place] 00 daily. [facility] methylPREDN 2019-08- No [id number] Take by [facility] ISolone 1-05 04-05 mouth ity of (MEDROL, 00:00: 00:00 [place] 4 mg 00 :00 CTIONS. Medica l tablets follow [facility] package directions naproxen 2019-08- No [id number] 550mg Take 1 [facility] sodium 1-05 04-05 [...] Indication s: acute pain cyclobenzap 2018-08- No [id number] 5mg Take 1 [facility] rine 5 mg 0-13 04-05 tablet by chelsyy of tablet 00:00: 00:00 mouth 3 [place] [...] rine 4-15 left-sided tablet by [facility] (FLEXERIL) 00:00: low back mouth 2 [...] rine 4-15 left-sided tablet by [facility] (FLEXERIL) 00:00: low back mouth 2 [...] rine 4-15 left-sided tablet by [facility] (FLEXERIL) 00:00: low back mouth 2 [...] rine 4-15 left-sided tablet by [facility] (FLEXERIL) 00:00: low back mouth 2 10 mg 00 pain with times tablet sciatica, daily as sciatica needed for laterality Muscle unspecified Spasms. gabapentin 2019- Yes Chronic 300mg Take 1 H [facility] (NEURONTIN) 4-15 left-sided capsule by [facility] 300 mg 00:00: low back mouth 2 capsule 00 pain with times sciatica, daily as sciatica needed for laterality Pain. unspecified cyclobenzap Yes Chronic 10mg Take 1 H arris rine 4-15 left-sided tablet by [facility] (FLEXERIL) 00:00: low back mouth 2 [...] rine 4-15 left-sided tablet by [facility] (FLEXERIL) 00:00: low back mouth 2 [...] rine 4-15 left-sided tablet by [facility] (FLEXERIL) 00:00: low back mouth 2 10 mg 00 pain with times tablet sciatica, daily as sciatica needed for laterality Muscle unspecified Spasms. gabapentin Yes Chronic 300mg Take 1 [facility] (NEURONTIN) 4-15 left-sided capsule by Health 300 mg 00:00: low back mouth 2 capsule 00 pain with times sciatica, daily as sciatica needed for laterality Pain. unspecified cyclobenzap 2019- Yes Chronic 10mg Take 1 H arris rine 4-15 left-sided tablet by [facility] (FLEXERIL) 00:00: low back mouth 2 [...] rine 4-15 left-sided tablet by [facility] (FLEXERIL) 00:00: low back mouth 2 [...] rine 4-15 left-sided tablet by [facility] (FLEXERIL) 00:00: low back mouth 2 [...] rine 4-15 left-sided tablet by [facility] (FLEXERIL) 00:00: low back mouth 2 10 mg 00 pain with times tablet sciatica, daily as sciatica needed for laterality Muscle unspecified Spasms. citalopram Yes 40mg QD Take 40 mg M [facility] (CeleXA) [address] MG tablet 18:26: nightly. [facility] 50 l metoprolol Yes 25mg Q.[id number] Take 25 mg [facility] tartrate [id number] (LOPRESSOR) 18:26: 3D [...] tasha 50 l metoprolol 2018-0 Yes 25mg Q.[id number] Take 25 mg [facility] tartrate 6-[id number] mouth [address] (LOPRESSOR) 18:26: 3D [...] tasha 50 l metoprolol 2018-0 Yes 25mg Q.[id number] Take 25 mg [facility] tartrate 6-[id number] [facility] [address] (LOPRESSOR) 18:26: 3D [...] tasha 50 l metoprolol 2018-0 Yes 25mg Q.[id number] Take 25 mg [facility] tartrate 6-[id number] [facility] [address] (LOPRESSOR) 18:26: 3D [...] tasha 50 l metoprolol 2018-0 Yes 25mg Q.[id number] Take 25 mg [facility] tartrate 6-[id number] mouth [address] (LOPRESSOR) 18:26: 3D [...] tasha 50 l metoprolol 2018-0 Yes 25mg Q.[id number] Take 25 mg [facility] tartrate 6-[id number] [facility] [address] (LOPRESSOR) 18:26: 3D [...] tasha 50 l metoprolol 2018-0 Yes 25mg Q.[id number] Take 25 mg [facility] tartrate 6-[id number] mouth [address] (LOPRESSOR) 18:26: 3D [...] tasha 50 l metoprolol 2018-0 Yes 25mg Q.[id number] Take 25 mg [facility] tartrate 6-[id number] mouth [address] (LOPRESSOR) 18:26: 3D [...] daily as l needed for mild pain. No Notes: [facility] 9-23 (Same as: l [...] Acetaminoph No Notes: Do M emoria en 9-23 not exceed l 13:34: 4 gm/day. (Same [...] tab, PO, l tablet 12:18: Daily, 0 [place] 00 Refill(s) Klor-Con 10 Yes 10 mEq, Mem oria 9-23 PO, Daily, l 12:18: 0 [place] 00 Refill(s) rOPINIRole Yes 1 mg = 1 Mem oria 1 mg oral 9-23 tab, PO, l tablet 12:18: Daily, 0 [place] 00 Refill(s) Klor-Con 10 Yes 10 mEq, Mem oria 9-23 PO, Daily, l 12:18: 0 [place] 00 Refill(s) rOPINIRole Yes 1 mg = 1 Mem oria 1 mg oral 9-23 tab, PO, l tablet 12:18: Daily, 0 [facility] 00 Refill(s) Klor-Con 10 Yes 10 mEq, Mem oria 9-23 PO, Daily, l 12:18: 0 [place] 00 Refill(s) rOPINIRole Yes 1 mg = 1 Mem oria 1 mg oral 9-23 tab, PO, l tablet 12:18: Daily, 0 [place] 00 Refill(s) Klor-Con 10 Yes 10 mEq, Mem oria 9-23 PO, Daily, l 12:18: 0 [place] 00 Refill(s) rOPINIRole Yes 1 mg = 1 Mem oria 1 mg oral 9-23 tab, PO, l tablet 12:18: Daily, 0 [place] 00 Refill(s) Klor-Con 10 Yes 10 mEq, Mem oria 9-23 PO, Daily, l 12:18: 0 [place] 00 Refill(s) rOPINIRole Yes 1 mg = 1 Mem oria 1 mg oral 9-23 tab, PO, l tablet 12:18: Daily, 0 [place] 00 Refill(s) Klor-Con 10 Yes 10 mEq, Mem oria 9-23 PO, Daily, l 12:18: 0 [place] 00 Refill(s) rOPINIRole Yes 1 mg = 1 Mem oria 1 mg oral 9-23 tab, PO, l tablet 12:18: Daily, 0 [place] 00 Refill(s) Klor-Con 10 Yes 10 mEq, Mem oria 9-23 PO, Daily, l 12:18: 0 [place] 00 Refill(s) rOPINIRole Yes 1 mg = 1 Mem oria 1 mg oral 9-23 tab, PO, l tablet 12:18: Daily, 0 [facility] 00 Refill(s) Klor-Con 10 Yes 10 mEq, Mem oria 9-23 PO, Daily, l 12:18: 0 [place] 00 Refill(s) rOPINIRole Yes 1 mg = 1 Mem oria 1 mg oral 9-23 tab, PO, l tablet 12:18: Daily, 0 [place] 00 Refill(s) Klor-Con 10 Yes 10 mEq, Mem oria 9-23 PO, Daily, l 12:18: 0 [place] 00 Refill(s) rOPINIRole Yes 1 mg = 1 Mem oria 1 mg oral 9-23 tab, PO, l tablet 12:18: Daily, 0 [place] 00 Refill(s) Klor-Con 10 Yes 10 mEq, Mem oria 9-23 PO, Daily, l 12:18: 0 [place] 00 Refill(s) rOPINIRole Yes 1 mg = 1 Mem oria 1 mg oral 9-23 tab, PO, l tablet 12:18: Daily, 0 [place] 00 Refill(s) Klor-Con 10 Yes 10 mEq, Mem oria 9-23 PO, Daily, l 12:18: 0 [place] 00 Refill(s) rOPINIRole Yes 1 mg = 1 Mem oria 1 mg oral 9-23 tab, PO, l tablet 12:18: Daily, 0 [place] 00 Refill(s) Klor-Con 10 Yes 10 mEq, Mem oria 9-23 PO, Daily, l 12:18: 0 [place] 00 Refill(s) rOPINIRole Yes 1 mg = 1 Mem oria 1 mg oral 9-23 tab, PO, l tablet 12:18: Daily, 0 [place] 00 Refill(s) Klor-Con 10 Yes 10 mEq, Mem oria 9-23 PO, Daily, l 12:18: 0 [place] 00 Refill(s) rOPINIRole Yes 1 mg = 1 Mem oria 1 mg oral 9-23 tab, PO, l tablet 12:18: Daily, 0 [facility] 00 Refill(s) Klor-Con 10 Yes 10 mEq, Mem oria 9-23 PO, Daily, l 12:18: 0 [place] 00 Refill(s) rOPINIRole Yes 1 mg = 1 Mem oria 1 mg oral 9-23 tab, PO, l tablet 12:18: Daily, 0 [place] 00 Refill(s) Klor-Con 10 Yes 10 mEq, Mem oria 9-23 PO, Daily, l 12:18: 0 [place] 00 Refill(s) rOPINIRole Yes 1 mg = [...] oria 9-23 PO, Daily, l 12:18: 0 [facility] Refill(s) rOPINIRole Yes 1 mg = 1 Mem oria 1 mg oral 9-23 tab, PO, l tablet 12:18: Daily, 0 [facility] Refill(s) Klor-Con 10 Yes 10 mEq, Mem oria 9-23 PO, Daily, l 12:18: 0 [place] Refill(s) Hydrochloro 2013- Yes 1 tab, PO, Memoria [...] Refill(s) Potassium 50 MG Oral Tablet Hydrochloro 2014-0 Yes 1 tab, PO, [facility] thiazide 9-23 [...] aspirin 2013-0 Yes 81 mg, PO, Mau agaat 9-22 Daily l 14:48: aspirin 2013-0 Yes [...] Memoria 05-19 Bedtime l 14:47: [place] 00 aripiprazol Yes 15 mg = [...] PO, Memoria 05-19 Bedtime l 14:47: aripiprazol 2013-0 Yes 15 mg = 1 M emoria e 15 MG -22 tab, PO, l Oral Tablet 14:47: Daily [place] nn [Abilif] Clonidine 2013-0 Yes PO, Memoria - Bedtime l 14:47: aripiprazol 2013-0 Yes 15 mg = 1 M emoria e 15 MG - tab, PO, l Oral Tablet 14:47: Daily [place] [facility] [Abilif] Clonidine 2013-0 Yes PO, Memoria - Bedtime [...] Memor ia 9-22 PO, BID l 14:46: [place] 00 Ibuprofen 2013-0 Yes 800 mg, Memor ia 9-22 PO, BID l 14:46: [place] 00 Ibuprofen 2014-0 Yes 800 mg, Memor ia 9-22 PO, BID l 14:46: [place] 00 Ibuprofen 2014-0 Yes 800 mg, Memor ia 9-22 PO, BID l 14:46: [place] 00 Ibuprofen 2014-0 Yes 800 mg, Memor ia 9-22 PO, BID l 14:46: [facility] Ibuprofen 2014-0 Yes 800 mg, Memor ia 9-22 PO, BID l 14:46: [place] 00 Miralax No Notes: [facility] 5-09 Dissolve l 14:00: in 8 oz of [place] 00 water or juice. (Same as: Miralax) Miralax No Notes: [facility] 5-09 Dissolve l 14:00: in 8 oz of [place] 00 water or juice. (Same as: Miralax) Miralax No Notes: [facility] 5-09 Dissolve l 14:00: in 8 oz of [place] 00 water or juice. (Same as: Miralax) Miralax No Notes: [facility] 5-09 Dissolve l 14:00: in 8 oz of [place] 00 water or juice. (Same as: Miralax) Miralax No Notes: [facility] 5-09 Dissolve l 14:00: in 8 oz of [place] 00 water or juice. (Same as: Miralax) Miralax No Notes: [facility]oria 5-09 Dissolve l 14:00: in 8 oz of [place] 00 water or juice. (Same as: Miralax) Miralax No Notes: [facility] 5-09 Dissolve l 14:00: in 8 oz of [place] 00 water or juice. (Same as: Miralax) Miralax No Notes: [facility]oria 5-09 Dissolve l 14:00: in 8 oz of [place] 00 water or juice. (Same as: Miralax) [...] Dissolve l 14:00: in 8 oz of [place] 00 water or juice. (Same as: Miralax) Miralax No Notes: [facility]oria 5-09 Dissolve l 14:00: in 8 oz of [place] 00 water or juice. (Same as: Miralax) Miralax No Notes: [facility] 5-09 Dissolve l 14:00: in 8 oz of [place] 00 water or juice. (Same as: Miralax) Miralax No Notes: [facility]oria 5-09 Dissolve l 14:00: in 8 oz of [place] 00 water or juice. (Same as: Miralax) Miralax No Notes: [facility]oria 5-09 Dissolve l 14:00: in 8 oz of [place] 00 water or juice. (Same as: Miralax) Miralax No Notes: [facility]oria 5-09 Dissolve l 14:00: in 8 oz of [place] 00 water or juice. (Same as: Miralax) Miralax No Notes: Memoria 5-09 Dissolve l 14:00: in 8 oz of [place] 00 water or juice. (Same as: Miralax) Dulcolax No Notes: [facility] Laxative 5-08 (Same As: l 15:24: Dulcolax, [place] 00 Bisco-Lax) Dulcolax No Notes: [facility] Laxative 5-08 (Same As: l 15:24: Dulcolax, [place] 00 Bisco-Lax) Dulcolax No Notes: [facility] Laxative 5-08 (Same As: l 15:24: Dulcolax, [place] 00 Bisco-Lax) Dulcolax No Notes: [facility] Laxative 5-08 (Same As: l 15:24: Dulcolax, [place] 00 Bisco-Lax) Dulcolax 0 No Notes: [facility] Laxative 5-08 (Same As: l 15:24: Dulcolax, [place] 00 Bisco-Lax) Dulcolax 0 No Notes: [facility] Laxative 5-08 (Same As: l 15:24: Dulcolax, [place] 00 Bisco-Lax) Dulcolax No Notes: [facility] Laxative 5-08 (Same As: l 15:24: Dulcolax, [place] 00 Bisco-Lax) Dulcolax 0 No Notes: [facility] Laxative 5-08 (Same As: l 15:24: Dulcolax, [place] 00 Bisco-Lax) Dulcolax No Notes: [facility] Laxative 5-08 (Same As: l 15:24: Dulcolax, [place] 00 Bisco-Lax) Dulcolax No Notes: [facility] Laxative 5-08 (Same As: l 15:24: Dulcolax, [place] 00 Bisco-Lax) Dulcolax No Notes: [facility] Laxative 5-08 (Same As: l 15:24: Dulcolax, [place] 00 Bisco-Lax) Dulcolax No Notes: [facility] Laxative 5-08 (Same As: l 15:24: Dulcolax, [place] 00 Bisco-Lax) Dulcolax No Notes: [facility] Laxative 5-08 (Same As: l 15:24: Dulcolax, [place] 00 Bisco-Lax) Dulcolax 0 No Notes: [facility] Laxative 5-08 (Same As: l 15:24: Dulcolax, [place] 00 Bisco-Lax) Dulcolax No Notes: [facility] Laxative 5-08 (Same As: l 15:24: Dulcolax, [place] 00 Bisco-Lax) Dulcolax 0 No Notes: [facility] Laxative 5-08 (Same As: l 15:24: Dulcolax, [place] 00 Bisco-Lax) Dulcolax 0 No Notes: [facility] Laxative 5-08 (Same As: l 15:24: Dulcolax, [place] 00 Bisco-Lax) Dulcolax No Notes: [facility] Laxative 5-08 (Same As: l 15:24: Dulcolax, [place] 00 Bisco-Lax) Sertraline No Notes: Memor ia 5-07 (Same as: l 14:00: Zoloft) [facility] Methocarbam No Notes: Mau agata ol 5-07 (Same l 14:00: as:Robaxin [place] 00 ) aripiprazol No Notes: Mau agata e 5-07 Non-Formul l 14:00: elva Drug. [place] 00 (Same as: ) Entocort EC No 9 mg, Memor ia 5-07 Route: PO, l 14:00: Drug form: [place] 00 ERCAP, Daily, Dosing Weight 71.818, kg, Start date: 01/01/14 9:00:00, Duration: 30 day, Stop date: 01/30/14 9:00:00 Budesonide No Notes: Memor ia 5-07 (Same As: l 14:00: Entocort [facility] 00 EC or Budesonide 3 mg EC / ERC) "Do Not Crush" Sertraline No Notes: Memor ia 5-07 (Same as: l 14:00: Zoloft) [place] 00 Methocarbam No Notes: Mau agata ol 5-07 (Same l 14:00: as:Robaxin ) aripiprazol No Notes: Mau agata e 5-07 Non-Formul l 14:00: [facility] Drug. [place] 00 (Same as: ) Entocort EC No [...] ia 5-07 (Same as: l 14:00: Zoloft) [facility] Methocarbam No Notes: Mau agata ol 5-07 (Same l 14:00: as:Robaxin [place] 00 ) aripiprazol No Notes: Mau agata e 5-07 Non-Formul l 14:00: [facility]. [place] 00 (Same as: ) Entocort EC No 9 mg, Memor ia 5-07 Route: PO, l 14:00: Drug form: [place] 00 ERCAP, Daily, Dosing Weight 71.818, kg, Start date: 01/01/14 9:00:00, Duration: 30 day, Stop date: 01/30/14 9:00:00 Budesonide No Notes: Memor ia 5-07 (Same As: l 14:00: Entocort [place] 00 EC or Budesonide 3 mg EC [...] 5-07 Route: PO, l 14:00: Drug form: [place] 00 ERCAP, Daily, Dosing Weight 71.818, kg, Start date: 01/01/14 9:00:00, Duration: 30 day, Stop date: 01/30/14 9:00:00 Budesonide No Notes: Memor ia 5-07 (Same As: l 14:00: Entocort [place] 00 EC or Budesonide 3 mg EC [...] 5-07 Route: PO, l 14:00: Drug form: [place] 00 ERCAP, Daily, Dosing Weight 71.818, kg, [...] 5-07 Route: PO, l 14:00: Drug form: [place] 00 ERCAP, Daily, Dosing Weight 71.818, kg, Start date: 01/01/14 9:00:00, Duration: 30 day, Stop date: 01/30/14 9:00:00 Budesonide No Notes: Memor ia 5-07 (Same As: l 14:00: Entocort [place] 00 EC or Budesonide 3 mg EC / ERC) "Do Not Crush" Sertraline No Notes: Memor ia 5-07 (Same as: l 14:00: Zoloft) [facility] Methocarbam No Notes: Mau agata ol 5-07 (Same l 14:00: as:Robaxin [place] ) aripiprazol No Notes: Mau agata e 5-07 Non-Formul l 14:00: [facility]. [facility] 00 (Same as: ) Entocort EC No 9 mg, Memor ia 5-07 Route: PO, l 14:00: Drug form: [place] 00 ERCAP, Daily, Dosing Weight 71.818, kg, Start date: 01/01/14 9:00:00, Duration: 30 day, Stop date: 01/30/14 9:00:00 Budesonide No Notes: Memor ia 5-07 (Same As: l 14:00: Entocort [place] EC or Budesonide 3 mg EC / ERC) "Do Not Crush" Sertraline No Notes: Memor ia 5-07 (Same as: l 14:00: Zoloft) [place] 00 Methocarbam No Notes: Mau agata ol [...] ia 5-07 (Same as: l 14:00: Zoloft) [place] 00 Methocarbam No Notes: Mau agata ol 5-07 (Same l 14:00: as:Robaxin ) aripiprazol No Notes: Mau agata e 5-07 Non-Formul l 14:00: [facility]. [place] 00 (Same as: ) Entocort EC No [...] ia 5-07 (Same as: l 14:00: Zoloft) [facility] Methocarbam No Notes: Mau agata ol 5-07 (Same l 14:00: as:Robaxin ) aripiprazol No Notes: Mau agata e 5-07 Non-Formul l 14:00: [facility]. (Same as: [place]) Entocort EC No 9 mg, Memor ia 5-07 Route: PO, l 14:00: Drug form: [place] 00 ERCAP, Daily, Dosing Weight 71.818, kg, Start date: 01/01/14 9:00:00, Duration: 30 day, Stop date: 01/30/14 9:00:00 Budesonide No Notes: Memor ia 5-07 (Same As: l 14:00: Entocort [place] 00 EC or Budesonide 3 mg EC / ERC) "Do Not Crush" Sertraline No Notes: Memor ia 5-07 (Same as: l 14:00: Zoloft) [facility] Methocarbam No Notes: Mau agaat ol 5-07 (Same l 14:00: as:Robaxin ) aripiprazol No Notes: Mau agata e 5-07 Non-Formul l 14:00: [facility]. [place] 00 (Same as: rita) Entocort EC No 9 mg, Memor ia 5-07 Route: PO, l 14:00: Drug form: [place] 00 ERCAP, Daily, Dosing Weight 71.818, kg, Start date: 01/01/14 9:00:00, Duration: 30 day, Stop date: 01/30/14 9:00:00 Budesonide No Notes: Memor ia 5-07 (Same As: l 14:00: Entocort [place] 00 EC or Budesonide 3 mg EC / ERC) "Do Not Crush" Sertraline No Notes: Memor ia 5-07 (Same as: l 14:00: Zoloft) [place] 00 Methocarbam No Notes: Mau agata ol 5-07 (Same l 14:00: as:Robaxin [place] ) aripiprazol No Notes: Mau agata e 5-07 Non-Formul l 14:00: [facility]. [facility] (Same as: Juvenal) Entocort EC No 9 mg, Memor ia 5-07 Route: PO, l 14:00: Drug form: [place] 00 ERCAP, Daily, Dosing Weight 71.818, kg, Start date: 01/01/14 9:00:00, Duration: 30 day, Stop date: 01/30/14 9:00:00 Budesonide No Notes: Memor ia 5-07 (Same As: l 14:00: Entocort [place] 00 EC or Budesonide 3 mg EC / ERC) "Do Not Crush" Sertraline No Notes: Memor ia 5-07 (Same as: l 14:00: Zoloft) [facility] Methocarbam No Notes: Mau agata ol 5-07 (Same l 14:00: as:Robaxin [place] ) aripiprazol No Notes: Mau agata e [...] agata ol 5-07 (Same l 14:00: as:Robaxin [place] 00 ) aripiprazol No Notes: Mau agata e 5-07 Non-Formul l 14:00: [facility]. [facility] (Same as: ) Entocort EC No 9 mg, Memor ia 5-07 Route: PO, l 14:00: Drug form: [place] 00 ERCAP, Daily, Dosing Weight 71.818, kg, Start date: 01/01/14 9:00:00, Duration: 30 day, Stop date: 01/30/14 9:00:00 Budesonide No Notes: Memor ia 5-07 (Same As: l 14:00: Entocort [place] 00 EC or Budesonide 3 mg EC / ERC) "Do Not Crush" Sertraline No Notes: Memor ia 5-07 (Same as: l 14:00: Zoloft) [facility] Methocarbam No Notes: Mau agata ol 5-07 (Same l 14:00: as:Robaxin [place] 00 ) aripiprazol No Notes: Mau agata e 5-07 Non-Formul l 14:00: [facility]. [facility] (Same as: ) Entocort EC No 9 mg, Memor ia 5-07 Route: PO, l 14:00: Drug form: [place] 00 ERCAP, Daily, Dosing Weight 71.818, kg, Start date: 01/01/14 9:00:00, Duration: 30 day, Stop date: 01/30/14 9:00:00 Budesonide No Notes: Memor ia 5-07 (Same As: l 14:00: Entocort [place] 00 EC or Budesonide 3 mg EC / ERC) "Do Not Crush" Sertraline No Notes: Memor ia 5-07 (Same as: l 14:00: Zoloft) [facility] Methocarbam No Notes: Mau agata ol 5-07 [...] 5-07 Route: PO, l 14:00: Drug form: [place] 00 ERCAP, Daily, Dosing Weight 71.818, kg, [...] 01-01 Route: PO, l 14:00: Drug form: [place] 00 ERCAP, Daily, Dosing Weight 71.818, kg, Start date: 01/01/14 9:00:00, Duration: 30 day, Stop date: 01/30/14 9:00:00 Budesonide No Notes: Memor ia 01-01 (Same As: l 14:00: Entocort EC or Budesonide 3 mg EC / ERC) "Do Not Crush" Protonix No Notes: Memoria 5-07 Tablet l 12:30: should not [place] 00 be chewed or crushed. (Same as: Protonix) Protonix No Notes: [facility]oria 5-07 Tablet l 12:30: should not [place] 00 be chewed or crushed. (Same as: Protonix) Protonix No Notes: Memoria 5-07 Tablet l 12:30: should not [place] 00 be chewed or crushed. (Same as: Protonix) Protonix No Notes: Memoria 5-07 Tablet l 12:30: should not [place] 00 be chewed or crushed. (Same as: Protonix) Protonix No Notes: Memoria 5-07 Tablet l 12:30: should not [place] 00 be chewed or crushed. (Same as: Protonix) Protonix No Notes: Memoria 5-07 Tablet l 12:30: should not [place] 00 be chewed or crushed. (Same as: Protonix) Protonix No Notes: Memoria 5-07 Tablet l 12:30: should not [place] 00 be chewed or crushed. (Same as: Protonix) Protonix No Notes: Memoria 5-07 Tablet l 12:30: should not [place] 00 be chewed or crushed. (Same as: Protonix) Protonix No Notes: Memoria 5-07 Tablet l 12:30: should not [place] 00 be chewed or crushed. (Same as: Protonix) Protonix No Notes: Memoria 5-07 Tablet l 12:30: should not [place] 00 be chewed or crushed. (Same as: Protonix) Protonix No Notes: Memoria 5-07 Tablet l 12:30: should not [place] 00 be chewed or crushed. (Same as: Protonix) Protonix No Notes: Memoria 5-07 Tablet l 12:30: should not [place] 00 be chewed or crushed. (Same as: Protonix) Protonix No Notes: Memoria 5-07 Tablet l 12:30: should not [place] 00 be chewed or crushed. (Same as: Protonix) Protonix No Notes: [facility]oria 5-07 Tablet l 12:30: should not [place] 00 be chewed or crushed. (Same as: Protonix) Protonix No Notes: [facility]oria 5-07 Tablet l 12:30: should not [place] 00 be chewed or crushed. (Same as: Protonix) Protonix No Notes: Memoria 5-07 Tablet l 12:30: should not [facility] 00 be chewed or crushed. (Same as: [...] agata 5-07 (Same as: l 04:30: Bentyl) [facility] 00 Dicyclomine No Notes: Mau agata 5-07 (Same as: l 04:30: Bentyl) Mentor Dicyclomine No Notes: Mau agata 5-07 (Same as: l 04:30: Bentyl) Nghia Dicyclomine No Notes: Mau agata 5-07 (Same as: l 04:30: Bentyl) Mentor Dicyclomine No Notes: Mau agata 5-07 (Same as: l 04:30: Bentyl) Mentor Dicyclomine No Notes: Mau agata 5-07 (Same as: l 04:30: Bentyl) Mentor Dicyclomine No Notes: Mau agata 5-07 (Same as: l 04:30: Bentyl) N[place] Dicyclomine No Notes: Mau agata 5-07 (Same as: l 04:30: Bentyl) Mentor Dicyclomine No Notes: Mau agata 5-07 (Same as: l 04:30: Bentyl) Mentor Dicyclomine No Notes: Mau agata 5-07 (Same as: l 04:30: Bentyl) [place] Dicyclomine No Notes: Mau agata 5-07 (Same as: l 04:30: Bentyl) Mentor Dicyclomine No Notes: Mau agata 5-07 (Same as: l 04:30: Bentyl) [place] Dicyclomine No Notes: Mau agata 5-07 (Same as: l 04:30: Bentyl) Mentor Dicyclomine No Notes: Mau agata 5-07 (Same as: l 04:30: Bentyl) Mentor Dicyclomine No Notes: Mau agata 5-07 (Same as: l 04:30: Bentyl) N[place] Dicyclomine No Notes: Mau agata 5-07 (Same as: l 04:30: Bentyl) [place] Dicyclomine No Notes: Mau agata 5-07 (Same as: l 04:30: Bentyl) Mentor Trazodone No Notes: Memori a Hydrochlori 5-07 (Same As: l de 100 MG 02:00: Desyrel) Herm booker Oral Tablet 00 Zocor No Notes: Memoria 5-07 (Same as: l 02:00: Zocor) Nghia 00 Ditropan XL No Notes: Mau agata 5-07 (Same as: l 02:00: Ditropan Mentor 00 XL) "Do Not Crush" Pamelor No Notes: Memoria 5-07 (Same l 02:00: as:Pamelor Mentor 00 , Aventyl) metoprolol No Notes: Memor ia tartrate 5-07 (Same as: l 02:00: Lopressor) Nghia Trazodone No Notes: Memori a Hydrochlori 5-07 (Same As: l de 100 MG 02:00: Desyrel) Herm booker Oral Tablet 00 Zocor No Notes: Memoria 5-07 (Same as: l 02:00: Zocor) N[place] Ditropan XL No Notes: Mau agata 5-07 (Same as: l 02:00: Ditropan Mentor 00 XL) "Do Not Crush" Pamelor No Notes: Memoria 5-07 (Same l 02:00: as:Pamelor Mentor , Aventyl) metoprolol No Notes: Memor ia tartrate 5-07 (Same as: l 02:00: Lopressor) Nghia Trazodone No Notes: Memori a Hydrochlori 5-07 (Same As: l de 100 MG 02:00: Desyrel) Herm booker Oral Tablet 00 Zocor No Notes: Memoria 5-07 (Same as: l 02:00: Zocor) Mentor Ditropan XL No Notes: Mau agata 5-07 (Same as: l 02:00: Ditropan Mentor 00 XL) "Do Not Crush" Pamelor No Notes: Memoria 5-07 (Same l 02:00: as:Pamelor Mentor 00 , Aventyl) metoprolol No Notes: Memor ia tartrate 5-07 (Same as: l 02:00: Lopressor) Nghia Trazodone No Notes: Memori a Hydrochlori 5-07 (Same As: l de 100 MG 02:00: Desyrel) Herm booker Oral Tablet 00 Zocor No Notes: Memoria 5-07 (Same as: l 02:00: Zocor) Mentor Ditropan XL No Notes: Mau agata 5-07 (Same as: l 02:00: Ditropan Nghia 00 XL) "Do Not Crush" Pamelor No Notes: Memoria 5-07 (Same l 02:00: as:Pamelor Mentor 00 , Aventyl) metoprolol No Notes: Memor ia tartrate 5-07 (Same as: l 02:00: Lopressor) Mentor Trazodone No Notes: Memori a Hydrochlori 5-07 (Same As: l de 100 MG 02:00: Desyrel) Herm booker Oral Tablet 00 Zocor No Notes: Memoria 5-07 (Same as: l 02:00: Zocor) Mentor Ditropan XL No Notes: Mau agata 5-07 (Same as: l 02:00: Ditropan Mentor 00 XL) "Do Not Crush" Pamelor No Notes: Memoria 5-07 (Same l 02:00: as:Pamelor Mentor 00 , Aventyl) metoprolol No Notes: Memor ia tartrate 5-07 (Same as: l 02:00: Lopressor) N[place] Trazodone No Notes: Memori a Hydrochlori 5-07 (Same As: l de 100 MG 02:00: Desyrel) Herm booker Oral Tablet 00 Zocor No Notes: Memoria 5-07 (Same as: l 02:00: Zocor) Mentor Ditropan XL No Notes: Mau agata 5-07 [...] tartrate 5-07 (Same as: l 02:00: Lopressor) Mentor Trazodone No Notes: Memori a Hydrochlori 5-07 (Same As: l de 100 MG 02:00: Desyrel) Herm booker Oral Tablet 00 Zocor No Notes: Memoria 5-07 (Same as: l 02:00: Zocor) [place] Ditropan XL No Notes: Mau agata 5-07 (Same as: l 02:00: Ditropan Mentor 00 XL) "Do Not Crush" Pamelor No Notes: Memoria 5-07 (Same l 02:00: as:Pamelor Ngh[place] 00 , Aventyl) metoprolol No Notes: Memor ia tartrate 5-07 (Same as: l 02:00: Lopressor) Mentor Trazodone No Notes: Memori a Hydrochlori 5-07 (Same As: l de 100 MG 02:00: Desyrel) Herm booker Oral Tablet 00 Zocor No Notes: Memoria 5-07 (Same as: l 02:00: Zocor) Mentor Ditropan XL No Notes: Mau agata 5-07 (Same as: l 02:00: Ditropan Nghia 00 XL) "Do Not Crush" Pamelor No Notes: Memoria 5-07 (Same l 02:00: as:Pamelor Mentor 00 , Aventyl) metoprolol No Notes: Memor [...] tartrate 5-07 (Same as: l 02:00: Lopressor) Mentor Trazodone No Notes: Memori a Hydrochlori 5-07 (Same As: l de 100 MG 02:00: Desyrel) Herm booker Oral Tablet 00 Zocor No Notes: Memoria 5-07 (Same as: l 02:00: Zocor) [place] Ditropan XL No Notes: Mau agata 5-07 (Same as: l 02:00: Ditropan Mentor 00 XL) "Do Not Crush" Pamelor No Notes: Memoria 5-07 (Same l 02:00: as:Pamelor Nghia 00 , Aventyl) metoprolol No Notes: Memor ia tartrate 5-07 (Same as: l 02:00: Lopressor) Mentor Trazodone No Notes: Memori a Hydrochlori 5-07 (Same As: l de 100 MG 02:00: Desyrel) Herm booker Oral Tablet 00 Zocor No Notes: Memoria 5-07 (Same as: l 02:00: Zocor) Mentor Ditropan XL No Notes: Mau agata 5-07 (Same as: l 02:00: Ditropan Mentor 00 XL) "Do Not Crush" Pamelor No Notes: Memoria 5-07 (Same l 02:00: as:Pamelor Mentor 00 , Aventyl) metoprolol No Notes: Memor [...] Notes: Memoria 5-07 (Same l 02:00: as:Pamelor Mentor 00 , Aventyl) metoprolol No Notes: Memor ia tartrate 5-07 (Same as: l 02:00: Lopressor) Ngh[place] Trazodone No Notes: Memori a Hydrochlori 5-07 (Same As: l de 100 MG 02:00: Desyrel) Herm booker Oral Tablet 00 Zocor No Notes: Memoria 5-07 (Same as: l 02:00: Zocor) Ngh[place] Ditropan XL No Notes: Mau agata 5-07 (Same as: l 02:00: Ditropan Mentor 00 XL) "Do Not Crush" Pamelor No Notes: Memoria 5-07 (Same l 02:00: as:Pamelor Mentor 00 , Aventyl) metoprolol No Notes: Memor ia tartrate 5-07 (Same as: l 02:00: Lopressor) N[place] Trazodone No Notes: Memori a Hydrochlori 5-07 (Same As: l de 100 MG 02:00: Desyrel) Herm booker Oral Tablet 00 Zocor No Notes: Memoria 5-07 (Same as: l 02:00: Zocor) Mentor Ditropan XL No Notes: Mau agata 5-07 (Same as: l 02:00: Ditropan Mentor 00 XL) "Do Not Crush" Pamelor No Notes: Memoria 5-07 (Same l 02:00: as:Pamelor Mentor 00 , Aventyl) metoprolol No Notes: Memor [...] Memoria 5-06 (Same as: l 22:00: Pentasa) Mentor 00 Do not open capsule. "Do Not Crush" Pentasa No Notes: Memoria 5-06 (Same as: l 22:00: Pentasa) Mentor 00 Do not open capsule. "Do Not Crush" Pentasa No Notes: Memoria 5-06 (Same as: l 22:00: Pentasa) Nghia 00 Do not open capsule. "Do Not Crush" Pentasa No Notes: Memoria 5-06 (Same as: l 22:00: Pentasa) Mentor 00 Do not open capsule. "Do Not Crush" Pentasa No Notes: Memoria 5-06 (Same as: l 22:00: Pentasa) Nghia 00 Do not open capsule. "Do Not Crush" Pentasa No Notes: Memoria 5-06 (Same as: l 22:00: Pentasa) Mentor 00 Do not open capsule. "Do Not Crush" Pentasa No Notes: Memoria 5-06 (Same as: l 22:00: Pentasa) Mentor 00 Do not open capsule. "Do Not Crush" Pentasa No Notes: Memoria 5-06 (Same as: l 22:00: Pentasa) Nghia 00 Do not open capsule. "Do Not Crush" Pentasa No Notes: Memoria 5-06 (Same as: l 22:00: Pentasa) Mentor 00 Do not open capsule. "Do Not Crush" Pentasa 2013-0 No Notes: Memoria 5-06 (Same as: l 22:00: Pentasa) Mentor 00 Do not open capsule. "Do Not Crush" Pentasa 0 No Notes: Memoria 5-06 (Same as: l 22:00: Pentasa) Nghia 00 Do not open capsule. "Do Not Crush" Pentasa 0 No Notes: Memoria 5-06 (Same as: l 22:00: Pentasa) Nghia 00 Do not open capsule. "Do Not Crush" Pentasa 2013-0 No Notes: Memoria 5-06 (Same as: l 22:00: Pentasa) Mentor 00 Do not open capsule. "Do Not Crush" Pentasa 0 No Notes: Memoria 5-06 (Same as: l 22:00: Pentasa) Nghia 00 Do not open capsule. "Do Not Crush" Pentasa 0 No Notes: Memoria 5-06 (Same as: l 22:00: Pentasa) Mentor 00 Do not open capsule. "Do Not Crush" Pentasa 0 No Notes: Memoria 5-06 (Same as: l 22:00: Pentasa) Mentor 00 Do not open capsule. "Do Not Crush" Ketorolac 2013-0 No 4 days. Mau agata Tromethamin 5-06 l e 15 MG/ML 12:43: Mentor Injectable 00 Solution Ketorolac 2013-0 No 4 days. Mau agata Tromethamin 5-06 l e 15 MG/ML 12:43: Nghia Injectable 00 Solution Ketorolac 2013-0 No 4 days. Mau agata Tromethamin 5-06 l e 15 MG/ML 12:43: Mentor Injectable 00 Solution Ketorolac 2013-0 No 4 days. Mau agata Tromethamin 5-06 l e 15 MG/ML 12:43: Nghia Injectable 00 Solution Ketorolac 2013-0 No 4 days. Mau agata Tromethamin 5-06 l e 15 MG/ML 12:43: Nghia Injectable 00 Solution Ketorolac 2013-0 No 4 days. Mau agata Tromethamin 5-06 l e 15 MG/ML 12:43: Mentor Injectable 00 Solution Ketorolac 2013-0 No 4 days. Mau agata Tromethamin 5-06 l e 15 MG/ML 12:43: Mentor Injectable 00 Solution Ketorolac 2013-0 No 4 days. Mau agata Tromethamin 5-06 l e 15 MG/ML 12:43: Mentor Injectable 00 Solution Ketorolac 2013-0 No 4 days. Mau agata Tromethamin 5-06 l e 15 MG/ML 12:43: Nghia Injectable 00 Solution Ketorolac 2013-0 No 4 days. Mau agata Tromethamin 5-06 l e 15 MG/ML 12:43: Mentor Injectable 00 Solution Ketorolac 2013-0 No 4 days. Mau agata Tromethamin 5-06 l e 15 MG/ML 12:43: Mentor Injectable 00 Solution Ketorolac 2013-0 No 4 days. Mau agata Tromethamin 5-06 l e 15 MG/ML 12:43: Nghia Injectable 00 Solution Ketorolac 2013-0 No 4 days. Mau agata Tromethamin 5-06 l e 15 MG/ML 12:43: Mentor Injectable 00 Solution Ketorolac 2013-0 No 4 [...] Tromethamin 5-06 l e 15 MG/ML 12:43: Mentor Injectable 00 Solution Nicotine No Notes: Memoria 5-05 (Same as: l 22:00: Habitrol) "Remove old patch before applicatio n of new patch" Nicotine No Notes: Memoria 5-05 (Same as: l 22:00: Habitrol) "Remove old patch before applicatio n of new patch" Nicotine No Notes: Memoria 5-05 (Same as: l 22:00: Habitrol) Mentor 00 "Remove old patch before applicatio n of new patch" Nicotine 2013-0 No Notes: Memoria 5-05 (Same as: l 22:00: Habitrol) Mentor 00 "Remove old patch before applicatio n of new patch" Nicotine 2013-0 No Notes: Memoria 5-05 (Same as: l 22:00: Habitrol) Mentor 00 "Remove old patch before applicatio n of new patch" Nicotine 0 No Notes: Memoria 5-05 (Same as: l 22:00: Habitrol) Nghia 00 "Remove old patch before applicatio n of new patch" Nicotine No Notes: Memoria 5-05 (Same as: l 22:00: Habitrol) Mentor 00 "Remove old patch before applicatio n of new patch" Nicotine 2013- No Notes: Memoria 5-05 (Same as: l 22:00: Habitrol) Mentor 00 "Remove old patch before applicatio n of new patch" Nicotine No Notes: Memoria 5-05 (Same as: l 22:00: Habitrol) Nghia 00 "Remove old patch before applicatio n of new patch" Nicotine No Notes: Memoria 5-05 (Same as: l 22:00: Habitrol) Nghia 00 "Remove old patch before applicatio n of new patch" Nicotine 2013-0 No Notes: Memoria 5-05 (Same as: l 22:00: Habitrol) Mentor 00 "Remove old patch before applicatio n of new patch" Nicotine 2013-0 No Notes: Memoria 5-05 (Same as: l 22:00: Habitrol) Nghia 00 "Remove old patch before applicatio n of new patch" Nicotine No Notes: Memoria 5-05 (Same as: l 22:00: Habitrol) Nghia 00 "Remove old patch before applicatio n of new patch" Nicotine 2013-0 No Notes: Memoria 5-05 (Same as: l 22:00: Habitrol) Mentor 00 "Remove old patch before applicatio n of new patch" Nicotine 2013-0 No Notes: Memoria 5-05 (Same as: l 22:00: Habitrol) Mentor 00 "Remove old patch before applicatio n of new patch" Nicotine No Notes: Memoria 5-05 (Same as: l 22:00: Habitrol) Nghia 00 "Remove old patch before applicatio n of new patch" Nicotine No Notes: Memoria 5-05 (Same as: l 22:00: Habitrol) Mentor 00 "Remove old patch before applicatio n of new patch" Nicotine No Notes: Memoria 5-05 (Same as: l 22:00: Habitrol) Mentor 00 "Remove old patch before applicatio n [...] oria 5-05 IV push l 21:30: reconstitu Mentor 00 te with 10 ml 0.9% sodium chloride and push over 2 minutes. (Same as: Protonix) Protonix No Notes: For Mem oria 5-05 IV push l 21:30: reconstitu Mentor 00 te with 10 ml 0.9% sodium chloride and push over 2 minutes. (Same as: Protonix) Protonix No Notes: For Mem oria 5-05 IV push l 21:30: reconstitu Mentor 00 te with 10 ml 0.9% sodium chloride and push over 2 minutes. (Same as: Protonix) Protonix No Notes: For Mem oria 5-05 IV push l 21:30: reconstitu Nghia 00 te with 10 ml 0.9% sodium chloride and push over 2 minutes. (Same as: Protonix) Protonix No Notes: For Mem oria 5-05 IV push l 21:30: reconstitu Mentor 00 te with 10 ml 0.9% sodium chloride and push over 2 minutes. (Same as: Protonix) Protonix No Notes: For Mem oria 5-05 IV push l 21:30: reconstitu Mentor 00 te with 10 ml 0.9% sodium chloride and push over 2 minutes. (Same as: Protonix) Protonix No Notes: For Mem oria 5-05 IV push l 21:30: reconstitu Nghia 00 te with 10 ml 0.9% sodium chloride and push over 2 minutes. (Same as: Protonix) Protonix No Notes: For Mem oria 5-05 IV push l 21:30: reconstitu Mentor 00 te with 10 ml 0.9% sodium chloride and push over 2 minutes. (Same as: Protonix) Protonix No Notes: For Mem oria 5-05 IV push l 21:30: reconstitu Mentor 00 te with 10 ml 0.9% sodium chloride and push over 2 minutes. (Same as: Protonix) Protonix No Notes: For Mem oria 5-05 IV push l 21:30: reconstitu Mentor 00 te with 10 ml 0.9% sodium [...] 2 minutes. (Same as: Protonix) 24 HR 2013- Yes 9 mg = 3 Memoria Budesonide [...] cap, PO, l Oral 11:54: Bedtime, # Mentor Capsule 00 90 cap, 0 [Pamelor] Refill(s) [...] 0 Memoria Bicarbonate 5-05 Refill(s) l 11:54: Mentor 00 methocarbam Yes 750 mg = 1 [...] PO, l 3 MG 11:54: Daily, # Mentor Extended 00 90 cap, 0 Release Refill(s) [...] 4 cap, l Extended 11:54: BID, 0 Mentor Release 00 Refill(s) Capsule [Pentasa] sertraline Yes [...] PO, l 3 MG 11:54: Daily, # Mentor Extended 00 90 cap, 0 Release Refill(s) [...] 4 cap, l Extended 11:54: BID, 0 Mentor Release 00 Refill(s) Capsule [Pentasa] sertraline Yes [...] cap, PO, l Oral 11:54: Bedtime, # Mentor Capsule 00 90 cap, 0 [Pamelor] Refill(s) [...] PO, l 3 MG 11:54: Daily, # Mentor Extended 00 90 cap, 0 Release Refill(s) [...] cap, PO, l Oral 11:54: Bedtime, # Mentor Capsule 00 90 cap, 0 [Pamelor] Refill(s) [...] 0 Memoria Bicarbonate 5-05 Refill(s) l 11:54: Mentor 00 methocarbam Yes 750 mg = 1 [...] PO, l 3 MG 11:54: Daily, # Mentor Extended 00 90 cap, 0 Release Refill(s) [...] 4 cap, l Extended 11:54: BID, 0 Mentor Release 00 Refill(s) Capsule [Pentasa] sertraline Yes 100 mg = 1 M emoria 100 mg oral 5-05 tab, PO, l tablet 11:54: Daily, # Mentor 00 30 tab, 0 Refill(s) dicyclomine Yes [...] cap, PO, l Enteric 11:54: Daily, # Moncoh n Coated 00 30 cap, 0 Capsule Refill(s) [Prilosec] 24 HR Yes 9 mg = 3 Memoria Budesonide 5-05 cap, PO, l 3 MG 11:54: Daily, # Mentor Extended 00 90 cap, 0 Release Refill(s) [...] tab, PO, l tablet 11:54: Daily, # Mentor 00 30 tab, 0 Refill(s) dicyclomine Yes [...] cap, PO, l Oral 11:54: Bedtime, # Mentor Capsule 00 90 cap, 0 [Pamelor] Refill(s) [...] tab, PO, l Tablet 11:54: Daily, # Mentor [Zantac] 00 30 tab, 0 Refill(s) Sodium Yes 0 Memoria Bicarbonate 5-05 Refill(s) l 11:54: Mentor 00 methocarbam Yes 750 mg = 1 [...] PO, l chloride 10 11:54: Bedtime, # Mentor MG Extended 00 30 tab, 0 Release [...] 0 Memoria Bicarbonate 5-05 Refill(s) l 11:54: Mentor 00 methocarbam Yes 750 mg = 1 [...] PO, l 3 MG 11:54: Daily, # Mentor Extended 00 90 cap, 0 Release Refill(s) [...] 4 cap, l Extended 11:54: BID, 0 Mentor Release 00 Refill(s) Capsule [Pentasa] sertraline Yes [...] 4 cap, l Extended 11:54: BID, 0 Mentor Release 00 Refill(s) Capsule [Pentasa] sertraline Yes [...] PO, l chloride 10 11:54: Bedtime, # Mentor MG Extended 00 30 tab, 0 Release Refill(s) Tablet [Ditropan] Trazodone Yes 100 mg = 1 Me moria Hydrochlori 5-05 tab, PO, l de 100 MG 11:54: Bedtime, # He rmann Oral Tablet 00 90 tab, 0 Refill(s) Ranitidine Yes 300 mg = 1 M emoria 300 MG Oral 5-05 tab, PO, l Tablet 11:54: Daily, # Mentor [Zantac] 00 30 tab, 0 Refill(s) Sodium [...] PO, l 3 MG 11:54: Daily, # Mentor Extended 00 90 cap, 0 Release Refill(s) [...] tab, PO, l tablet 11:54: Daily, # Mentor 00 30 tab, 0 Refill(s) dicyclomine Yes [...] 0 Memoria Bicarbonate 5-05 Refill(s) l 11:54: Mentor 00 methocarbam Yes 750 mg = 1 [...] tab, PO, l tablet 11:54: Daily, # Mentor 00 30 tab, 0 Refill(s) dicyclomine Yes [...] PO, l chloride 10 11:54: Bedtime, # Mentor MG Extended 00 30 tab, 0 Release [...] PO, l 3 MG 11:54: Daily, # Mentor Extended 00 90 cap, 0 Release Refill(s) [...] 4 cap, l Extended 11:54: BID, 0 Mentor Release 00 Refill(s) Capsule [Pentasa] sertraline Yes [...] 0 Memoria Bicarbonate 5-05 Refill(s) l 11:54: Mentor 00 methocarbam Yes 750 mg = 1 [...] PO, l 3 MG 11:54: Daily, # Mentor Extended 00 90 cap, 0 Release Refill(s) [...] 4 cap, l Extended 11:54: BID, 0 Mentor Release 00 Refill(s) Capsule [Pentasa] sertraline Yes 100 mg = 1 M emoria 100 mg oral 5-05 tab, PO, l tablet 11:54: Daily, # Mentor 00 30 tab, 0 Refill(s) dicyclomine Yes [...] cap, PO, l Oral 11:54: Bedtime, # Mentor Capsule 00 90 cap, 0 [Pamelor] Refill(s) [...] tab, PO, l Tablet 11:54: Daily, # Mentor [Zantac] 00 30 tab, 0 Refill(s) Sodium [...] tab, PO, l tablet 11:54: Daily, # Mentor 00 30 tab, 0 Refill(s) dicyclomine Yes [...] cap, PO, l Oral 11:54: Bedtime, # Mentor Capsule 00 90 cap, 0 [Pamelor] Refill(s) [...] tab, PO, l Tablet 11:54: Daily, # Mentor [Zantac] 00 30 tab, 0 Refill(s) Sodium Yes 0 Memoria Bicarbonate 5-05 Refill(s) l 11:54: Mentor 00 methocarbam Yes 750 mg = 1 [...] PO, l 3 MG 11:54: Daily, # Mentor Extended 00 90 cap, 0 Release Refill(s) [...] 4 cap, l Extended 11:54: BID, 0 Mentor Release 00 Refill(s) Capsule [Pentasa] sertraline Yes 100 mg = 1 M emoria 100 mg oral 5-05 tab, PO, l tablet 11:54: Daily, # Mentor 00 30 tab, 0 Refill(s) dicyclomine Yes [...] PO, l chloride 10 11:54: Bedtime, # Mentor MG Extended 00 30 tab, 0 Release [...] 0 Memoria Bicarbonate 5-05 Refill(s) l 11:54: Mentor 00 methocarbam Yes 750 mg = 1 [...] 0 Memoria Bicarbonate 5-05 Refill(s) l 11:54: Mentor 00 methocarbam Yes 750 mg = 1 [...] Notes: Memoria 5-05 (Same l 09:01: as:MORPhin Mentor 00 e Sulfate) Morphine No Notes: Memoria 5-05 (Same l 09:01: as:MORPhin Mentor 00 e Sulfate) Morphine No Notes: Memoria 5-05 (Same l 09:01: as:MORPhin Nghia 00 e Sulfate) Morphine No Notes: Memoria 5-05 (Same l 09:01: as:MORPhin Mentor 00 e Sulfate) Morphine No Notes: Memoria 5-05 (Same l 09:01: as:MORPhin Mentor 00 e Sulfate) Morphine No Notes: Memoria 5-05 (Same l 09:01: as:MORPhin [place] 00 e Sulfate) Morphine No Notes: Memoria 5-05 (Same l 09:01: as:MORPhin Mentor 00 e Sulfate) Morphine No Notes: Memoria 5-05 (Same l 09:01: as:MORPhin [place] 00 e Sulfate) Morphine No Notes: Memoria 5-05 (Same l 09:01: as:MORPhin Mentor 00 e Sulfate) Morphine No Notes: Memoria 5-05 (Same l 09:01: as:MORPhin [place] 00 e Sulfate) Morphine No Notes: Memoria 5-05 (Same l 09:01: as:MORPhin Mentor 00 e Sulfate) Morphine No Notes: Memoria 5-05 (Same l 09:01: as:MORPhin [place] 00 e Sulfate) Morphine No Notes: Memoria 5-05 (Same l 09:01: as:MORPhin [place] 00 e Sulfate) Morphine No Notes: Memoria 5-05 (Same l 09:01: as:MORPhin [place] 00 e Sulfate) Morphine No Notes: Memoria 5-05 (Same l 09:01: as:MORPhin Mentor 00 e Sulfate) Morphine No Notes: Memoria 5-05 (Same l 09:01: as:MORPhin Mentor 00 e Sulfate) Zofran No Notes: Memoria 5-05 (Same as: l 09:00: Zofran) Mentor 00 Lovenox No Notes: Memoria 5-05 (Same as: l 09:00: Lovenox) Nghia 00 Zofran No Notes: Memoria 5-05 (Same as: l 09:00: Zofran) Nghia 00 Lovenox No Notes: Memoria 5-05 (Same as: l 09:00: Lovenox) Ngh[place] 00 Zofran No Notes: Memoria 5-05 (Same as: l 09:00: Zofran) Ngh[place] 00 Lovenox No Notes: Memoria 5-05 (Same as: l 09:00: Lovenox) Mentor 00 Zofran No Notes: Memoria 5-05 (Same as: l 09:00: Zofran) Mentor 00 Lovenox No Notes: Memoria 5-05 (Same as: l 09:00: Lovenox) Mentor 00 Zofran No Notes: Memoria 5-05 (Same as: l 09:00: Zofran) Mentor 00 Lovenox No Notes: Memoria 5-05 (Same as: l 09:00: Lovenox) Mentor 00 Zofran No Notes: Memoria 5-05 (Same as: l 09:00: Zofran) Nghia 00 Lovenox No Notes: Memoria 5-05 (Same as: l 09:00: Lovenox) Ngh[place] 00 Zofran No Notes: Memoria 5-05 (Same as: l 09:00: Zofran) Mentor 00 Lovenox No Notes: Memoria 5-05 (Same as: l 09:00: Lovenox) Mentor 00 Zofran No Notes: Memoria 5-05 (Same as: l 09:00: Zofran) Mentor 00 Lovenox No Notes: Memoria 5-05 (Same as: l 09:00: Lovenox) Ngh[place] 00 Zofran No Notes: Memoria 5-05 (Same as: l 09:00: Zofran) Mentor 00 Lovenox No Notes: Memoria 5-05 (Same as: l 09:00: Lovenox) Mentor 00 Zofran No Notes: Memoria 5-05 (Same as: l 09:00: Zofran) Mentor 00 Lovenox No Notes: Memoria 5-05 (Same as: l 09:00: Lovenox) Ngh[place] 00 Zofran No Notes: Memoria 5-05 (Same as: l 09:00: Zofran) Mentor 00 Lovenox No Notes: Memoria 5-05 (Same as: l 09:00: Lovenox) Nghia 00 Zofran No Notes: Memoria 5-05 (Same as: l 09:00: Zofran) Ngh[place] 00 Lovenox No Notes: Memoria 5-05 (Same as: l 09:00: Lovenox) Mentor 00 Zofran No Notes: Memoria 5-05 (Same as: l 09:00: Zofran) Mentor 00 Lovenox No Notes: Memoria 5-05 (Same [...] Memoria 5-05 (Same as: l 09:00: Lovenox) Mentor 00 Zofran No Notes: Memoria 5-05 (Same as: l 09:00: Zofran) Lovenox No Notes: Memoria 5-05 (Same as: l 09:00: Lovenox) Mentor normal No 1,000 mL, Memori a saline [...] Ordered Filled Immunization Date Status Comments [facility] e Immunization Name Name SARS-COV-2 COVID-19 2021-05-15 Completed Unive rsity of MODERNA VACCINE 00:00:00 [facility] SARS-COV-2 COVID-19 2021-05-15 Completed Unive rsity of MODERNA VACCINE 00:00:00 [facility] ical Branch SARS-COV-2 COVID-19 2021-05-15 Completed Unive rsity of MODERNA VACCINE 00:00:00 [place] [facility] SARS-COV-2 COVID-19 2021-05-15 Completed Unive rsity of MODERNA 12+ YRS 00:00:00 [place] [facility] SARS-COV-2 COVID-19 2021-05-15 Completed Unive rsity of MODERNA 12+ YRS 00:00:00 [place] [facility] SARS-COV-2 COVID-19 2021-05-15 Completed Unive rsity of MODERNA 12+ YRS 00:00:00 [facility] SARS-COV-2 COVID-19 2021-05-15 [...] rsity of MODERNA 12+ YRS 00:00:00 [facility] ical VACCINE Branch SARS-COV-2 COVID-19 2021-04-17 Completed Unive rsity of MODERNA 12+ YRS 00:00:00 [facility] ical VACCINE Branch SARS-COV-2 COVID-19 2021-04-17 Completed Unive rsity of MODERNA 12+ YRS 00:00:00 [facility] ical VACCINE Branch Tdap 2018-04-13 Completed [facility] 00:00:00 [facility] Tdap 2018-04-13 Completed [facility] 00:00:00 [facility] Tdap 2018-04-13 Completed [facility] 00:00:00 [facility] Tdap 2018-04-13 Completed [facility] 00:00:00 [facility] Tdap 2018-04-13 Completed [facility] 00:00:00 [facility] Tdap 2018-04-13 Completed [facility] 00:00:00 [facility] Tdap 2018-04-13 Completed [facility] 00:00:00 [facility] Tdap 2018-04-13 Completed [facility] 00:00:00 [facility] TDAP 2018-04-13 Completed [facility] 00:[facility]:00 [facility] TDAP 2018-04-13 Completed [facility] 00:00:00 [facility] TDAP 2018-04-13 Completed [facility] 00:00:00 [facility] TDAP 2018-04-13 Completed [facility] 00:00:00 [facility] TDAP 2018-04-13 Completed [facility] of 00:00:00 [facility] TDAP 2018-04-13 Completed [facility] 00:00:00 [facility] TDAP 2018-04-13 Completed [facility] 00:00:00 [facility] Vital Signs Vital Name Observation Time Observation Value Comments Source WEIGHT 2023-03-14 12:02:00 60.646 kg WEIGHT 2023-03-14 12:02:00 60.646 kg WEIGHT 2023-01-10 13:58:00 60.51 kg WEIGHT 2023-01-10 13:58:00 60.51 kg Systolic blood 2022-12-06 18:27:00 120 mm[Hg] Univer sity of pressure [facility] Diastolic blood 2022-12-06 18:27:00 75 mm[Hg] Unive rsity of [facility] Heart rate 2022-12-06 18:27:00 54 [facility] Respiratory rate 2022-12-06 18:27:00 16 /min Univ ersity of [facility] Body height 2022-12-06 18:27:00 154[facility]9 [facility] Body weight 2022-12-06 18:27:00 58.786 kg [facility] BMI 2022-12-06 18:27:00 24.49 kg/m2 [facility] Oxygen saturation in 2022-12-06 18:27:00 93 /min [facility] Arterial blood by [facility] Pulse oximetry Branch HEIGHT 2022-09-13 11:50:00 [...] 15:18:00 160 mm[Hg] Univer sity of pressure [facility] Diastolic blood 2021-11-30 15:18:00 82 mm[Hg] Unive rsity of [facility] Heart rate 2021-11-30 14:45:00 59 /min [facility] Body temperature 2021-11-30 14:45:00 36.56 [facility] 2021-11-30 14:45:00 18 /min [facility] Body height 2021-11-30 14:45:00 154.9 cm [facility] Body weight 2021-11-30 14:45:00 58.832 kg [facility] BMI 2021-11-30 14:45:00 24.51 kg/m2 [facility] Heart rate 2022-09-13 11:50:00 60 /min [facility] Body temperature 2022-09-13 11:50:00 36.22 [facility] Respiratory rate 2022-09-13 11:50:00 16 /min [facility] Body height 2022-09-13 11:50:00 153.7 cm actual [facility] Body weight 2022-09-13 11:50:00 58.741 kg [facility] BMI 2022-09-13 11:50:00 24.87 kg/m2 [facility] Oxygen saturation in 2022-09-13 11:50:00 96 /min [facility] Arterial blood by [facility] Pulse oximetry Systolic blood 2022-06-21 14:37:00 154 mm[Hg] [facility] Diastolic blood 2022-06-21 14:37:00 85 mm[Hg] [facility] Heart rate 2022-06-21 14:37:00 86 /min [facility] Body temperature 2022-06-21 14:37:00 36.28 [facility] Respiratory rate 2022-06-21 14:37:00 18 /min [facility] Body height 2022-06-21 14:37:00 154.9 cm [facility] Body weight 2022-06-21 14:37:00 58.65 kg [facility] BMI 2022-06-21 14:37:00 24.43 kg/m2 [facility] Oxygen saturation in 2022-06-21 14:37:00 95 /min [facility] Arterial blood by [facility] Pulse oximetry Weight 2014-05-16 14:54:00 [facility] BMI Calculated 2014-05-16 14:54:00 [facility] Height 2014-05-16 14:54:00 160.02 cm [facility] Respitory Rate 2014-01-02 20:58:00 [facility] Heart Rate 2014-01-02 20:58:00 [facility] Temperature Oral (F) 2014-01-02 20:58:00 98.4 F [facility] Diastolic (mm Hg) 2014-01-02 20:58:00 [facility] Systolic (mm Hg) 2014-01-02 20:58:00 [facility] Temperature Oral (F) 2014-01-02 16:23:00 98.2 F [facility] Heart Rate 2014-01-02 16:23:00 [facility] Respitory Rate 2014-01-02 16:23:00 [facility] Systolic (mm Hg) 2014-01-02 16:23:00 [facility] Diastolic (mm Hg) 2014-01-02 16:23:00 [facility] Diastolic (mm Hg) 2014-01-02 12:20:00 [facility] Systolic (mm Hg) 2014-01-02 12:20:00 [facility] Respitory Rate 2014-01-02 12:20:00 [facility] Temperature Oral (F) 2014-01-02 12:20:00 98.5 F [facility] Heart Rate 2014-01-02 12:20:00 [facility] Weight 2013-12-30 08:54:00 [facility] Height 2013-12-30 08:54:00 162.56 cm [facility] BMI Calculated 2013-12-30 08:54:00 [facility] Weight 2013-12-30 08:52:00 [facility] BMI Calculated 2013-12-30 08:52:00 Morgan Mccann Height 2013-12-30 08:52:00 162.56 cm Morenita Agrawal Weight 2013-12-30 08:40:00 Morenita Agrawal BMI Calculated 2013-12-30 08:40:00 Morgan Mccann Height 2013-12-30 08:40:00 162.56 cm [facility] Procedures Procedure Date / Time Performing Clinician Source Performed ASSIGNMENT OF BENEFITS 2022-12-06 18:06:09 Doctor Unassigned, No [facility] CBC W/PLT COUNT & AUTO 2022-09-13 11:59[facility]00 [facility] CBC W/PLT COUNT & AUTO 2022-09-13 11:59:00 [facility] DIFFERENTIAL Center COMPREHENSIVE METABOLIC 2022-09-13 11:59:00 [facility] PANEL Center CT HEART-CORONARY 2022-07-18 15:37:00 [facility] ARTERIES CALCIUM SCORE Center SCREENING WITHOUT IV CONTRAST 2D ECHO W/ DOPPLER 2022-07-18 13:04:08 [facility] (CW/PW/COLOR) Owen ECG 12-LEAD 2022-06-21 14:31:02 [facility] ECG 12-LEAD 2022-06-21 14:31:02 Unknown, [facility] CBC W/PLT COUNT & AUTO 2022-06-21 14:30:[facility] DIFFERENTIAL Center COMPREHENSIVE METABOLIC 2022-06-21 14:30:00 [facility] PANEL Center CBC W/PLT COUNT & AUTO 2022-06-21 14:30:00 [facility] DIFFERENTIAL Center NM MYOCARDIAL PERFUSION 2022-05-16 16:14:00 [facility] SPECT, PHARM Center APTT 2022-05-16 15:02:00 Claudia Umanzor [facility] TREADMILL 2022-05-16 13:51:06 Unknown, Hl7 [facility](NON-NUCLEAR Center TREADMILL) ECG 12-LEAD 2022-05-16 13:28:19 Unknown, Hl7 [facility] ECG 12-LEAD 2022-05-16 13:28:19 Unknown, Hl7 [facility] ECG 12-LEAD 2022-05-16 13:27:51 Unknown, Hl7 [facility] ECG 12-LEAD 2022-05-16 13:27:51 Unknown, Hl7 [facility] APTT 2022-05-16 03:57:00 [facility] CBC (HEMOGRAM ONLY) 2022-05-16 03:57:00 [facility] BASIC METABOLIC PANEL 2022-05-16 03:57:00 Leanne Mcdonnell [facility] MAGNESIUM 2022-05-16 03:57:00 Leanne Mcdonnell [facility] APTT 2022-05-15 16:09:00 [facility] (HE[facility] ONLY) 2022-05-15 05:43:00 [facility] APTT 2022-05-15 05:43:00 [facility] ECG 12-LEAD 2022-05-15 01:50:44 [facility] ECG 12-LEAD 2022-05-15 01:50:44 Unknown, Hl7 [facility] HIGH SENSITIVITY 2022-05-15 01:30:00 [facility] TROPONIN I Center ECG 12-LEAD 2022-05-14 23:03:01 Andrew Hernandez [facility] ECG 12-LEAD 2022-05-14 23:03:01 Unknown, Hl7 [facility] PLATELET COUNT 2022-05-14 22:47:00 [facility] APTT 2022-05-14 22:47:00 Noé, [facility] S [facility] LIPID PANEL 2022-05-14 22:47:00 Noé, [facility] HIGH SENSITIVITY 2022-05-14 22:47:00 Noé, Claudia S [facility] TROPONIN I Center SARS-COV2/RT-PCR ([facility] & 2022-05-14 21:18:00 Noé, Claudia S [facility] I [facility] REF LABS) Center HIGH SENSITIVITY 2022-05-14 18:33:00 Andrew Hernandez [facility] TROPONIN I [facility] ECG 12-LEAD 2022-05-14 18:29:48 [facility] 2022-05-14 18:29:48 Unknown, [facility] CBC W/PLT COUNT & AUTO 2022-05-14 16:55:00 [facility] CBC W/PLT COUNT & AUTO 2022-05-14 16:55:00 [facility] COMPREHENSIVE METABOLIC 2022-05-14 16:55:00 [facility] HIGH SENSITIVITY 2022-05-14 16:55:00 Andrew Hernandez [facility] TROPONIN I [facility] XR CHEST 2 VIEWS 2022-05-14 16:30:00 Andrew Hernandez [facility] ECG 12-LEAD 2022-05-14 16:13:36 Unknown, H[facility]7 [facility] ECG 12-LEAD 2022-05-14 16:13:36 Noé, [facility] S [facility] EKG-SCANNED 2022-05-14 00:00:00 Provider, Default [facility] Scanning [place] Abdominal aorta [facility] angiogram Abdominal hysterectomy [facility] Angiography of renal [facility] arteries, bilateral Appendectomy [facility] Superior mesenteric [facility] angiography Suspension of bladder [facility] Tonsillectomy [facility] Bladder augmentation [facility] Plan of Care Planned Activity Planned Date [...] [facility] s Test 00:00:00 (procedure) [code = [facility] [id number]] Future Scheduled 2025-05-[address] [facility]:00 (procedure) [code = [facility] [id number]] Future Scheduled 2025-05-[address] [facility] Test 00:00:00 (procedure) [code = [facility] 08145864] Future Scheduled 2025-05-[address] [facility] Test 00:00:00 (procedure) [code = [facility] 53524664] Future Scheduled 2025-05-[address] [facility] Test 00:00:00 (procedure) [code = [facility] [id number]] Future Scheduled 2025-05-[address] [facility] Test 00:00:00 (procedure) [code = [facility] 01798043] Future Scheduled 2023-05-28 IMM Influenza Seasonal H [...] [facility]ukes Test 00:00:00 (Season Ended) [code = [facility] INFLUENZA VACCINE (Season Ended)] Future Scheduled 2023-03-29 [facility] Test 14:50:14 malignant neoplasm of colon (procedure) [code = 390522799] Future Scheduled 2023-03-29 [facility] Test 14:50:14 malignant neoplasm of colon (procedure) [code = 400428462] Future Scheduled 2023-03-29 [facility] Test 14:50:14 malignant neoplasm of colon (procedure) [code = 817118965] Future Scheduled 2023-03-29 COVID-19 [facility] (#[facility]:14 [code = COVID-19 VACCINE (#1)] Future Scheduled 2023-03-29 [facility] Test 14:50:14 malignant neoplasm of cervix (procedure) [code = 746570862] Future Scheduled 2023-03-29 [facility] Test 14:50:14 malignant neoplasm of colon (procedure) [code = 521149859] Future Scheduled 2023-03-29 [facility] Test 14:50:14 malignant neoplasm of colon (procedure) [code = 779892745] Future Scheduled 2023-03-29 SHINGLES VACCINES (1 [facility] 14:50:14 of 2) [code = SHINGLES VACCINES (1 of 2)] Future Scheduled 2023-03-29 BREAST CANCER [facility] Test 14:50:14 SCREENING [code = BREAST CANCER SCREENING] Future Scheduled 2023-03-29 INFLUENZA VACCINE [facility] 14:50:14 [code = INFLUENZA VACCINE] Future Scheduled 2023-03-01 [facility] Test 14:23:18 malignant neoplasm of colon (procedure) [code = 812097134] Future Scheduled 2023-03-01 [facility] Test 14:23:18 malignant neoplasm of colon (procedure) [code = 494216156] Future Scheduled 2023-03-01 [facility] Test 14:23:18 malignant neoplasm of colon (procedure) [code = 679328768] Future Scheduled 2023-03-01 COVID-19 VACCINE (#1) [facility] Test 14:23:18 [code = COVID-19 VACCINE (#1)] Future Scheduled 2023-03-01 [facility] Test 14:23:18 malignant neoplasm of cervix (procedure) [code = 518974545] Future Scheduled 2023-03-01 [facility] Test 14:23:18 malignant neoplasm of colon (procedure) [code = 840308226] Future Scheduled 2023-03-01 [facility] Test 14:23:18 malignant neoplasm of colon (procedure) [code = 099180172] Future Scheduled 2023-03-01 SHINGLES VACCINES (1 [facility] 14:23:18 of 2) [code = SHINGLES VACCINES (1 of 2)] Future Scheduled 2023-03-01 BREAST CANCER [facility] Test 14:23:18 SCREENING [code = BREAST CANCER SCREENING] Future Scheduled 2023-03-01 INFLUENZA VACCINE [facility] 14:23:18 [code = INFLUENZA VACCINE] Future Scheduled 2023-01-17 Hepatitis C screening [facility] Test 07:58:38 (procedure) [code = 874172068] Future Scheduled 2023-01-17 [facility] Test 07:58:38 malignant neoplasm of cervix (procedure) [code = 186743444] Future Scheduled 2023-01-[address] [facility] Test 07:58:38 [code = COLONOSCOPY SCREENING] Future Scheduled 2023-01-17 SHINGLES VACCINES (1 [facility] 07:58:38 of 2) [code = SHINGLES VACCINES (1 of 2)] Future Scheduled 2023-01-17 BREAST CANCER [facility] Test 07:58:38 SCREENING [code = BREAST CANCER SCREENING] Future Scheduled 2023-01-17 INFLUENZA VACCINE [facility] 07:58:38 [code = INFLUENZA VACCINE] Future Scheduled 2023-01-17 COVID-19 VACCINE (#1) [facility] Test 07:58:38 [code = COVID-19 VACCINE (#1)] Future Scheduled 2023-01-17 Pneumococcal Vaccine: [facility] Test 07:58:38 Pediatrics (0 to 5 Years) [...] IPPE)] Future Scheduled 2022-08-17 COVID-19 VACCINE (#1) [facility] Test 18:22:05 [code = COVID-19 VACCINE (#1)] Future Scheduled 2022-08-17 [facility] 18:22:05 malignant neoplasm of cervix (procedure) [code = 637340175] Future Scheduled 2022-08-17 COLONOSCOPY SCREENING [facility] Test 18:22:05 [code = COLONOSCOPY SCREENING] Future Scheduled 2022-08-17 SHINGLES VACCINES (1 Met [facility] Test 18:22:05 of 2) [code = SHINGLES VACCINES (1 of 2)] Future Scheduled 2022-08-17 BREAST CANCER [facility] Test 18:22:05 SCREENING [code = BREAST CANCER SCREENING] Future Scheduled 2022-08-17 INFLUENZA VACCINE [facility] 18:22:05 [code = INFLUENZA VACCINE] Future Scheduled 2022-08-17 COVID-19 VACCINE (#1) [facility] Test 18:22:05 [code = COVID-19 VACCINE (#1)] Future Scheduled 2022-08-17 [facility] 18:22:05 malignant neoplasm of cervix (procedure) [code = 195628645] Future Scheduled 2022-08-17 COLONOSCOPY SCREENING [facility] Test 18:22:05 [code = COLONOSCOPY SCREENING] Future Scheduled 2022-08-17 [facility]:22:05 of 2) [code = SHINGLES VACCINES (1 of 2)] Future Scheduled 2022-08-17 BREAST CANCER [facility] Test 18:22:05 SCREENING [code = BREAST CANCER SCREENING] Future Scheduled 2022-08-17 INFLUENZA VACCINE [facility] Test 18:22:05 [code = INFLUENZA VACCINE] Future Scheduled 2022-08-17 [facility] 18:22:05 [code = COVID-19 VACCINE (#1)] Future Scheduled 2022-08-17 [facility] 18:22:05 malignant neoplasm of cervix (procedure) [code = 440462187] Future Scheduled 2022-08-[address] [facility] Test 18:22:05 [code = COLONOSCOPY SCREENING] Future Scheduled 2022-08-17 SHINGLES VACCINES (1 [facility] 18:22:05 of 2) [code = SHINGLES VACCINES (1 of 2)] Future Scheduled 2022-08-17 BREAST CANCER [facility] Test 18:22:05 SCREENING [code = BREAST CANCER SCREENING] Future Scheduled 2022-08-17 INFLUENZA VACCINE [facility] 18:22:05 [code = INFLUENZA VACCINE] Future Scheduled 2022-05-28 IMM Influenza Seasonal H [...] Future Scheduled 2022-04-26 [facility]IS [facility] 16:18:33 (1 of 3 - 3-dose series) [code = HEPATITIS B VACCINES (1 of 3 - 3-dose series)] Future Scheduled 2022-04-26 COVID-19 VACCINE (#1) [facility] Test 16:18:33 [code = COVID-19 VACCINE (#1)] Future Scheduled 2022-04-26 Screening for [facility] Test 16:18:33 malignant neoplasm of cervix (procedure) [code = 235364663] Future Scheduled 2022-04-[address] [facility] Test 16:18:33 [code = COLONOSCOPY SCREENING] Future Scheduled 2022-04-26 SHINGLES VACCINES (1 [facility] Test 16:18:33 of 2) [code = SHINGLES VACCINES (1 of 2)] Future Scheduled 2022-04-26 BREAST CANCER [facility] Test 16:18:33 SCREENING [code = BREAST CANCER SCREENING] Future Scheduled 2022-04-26 INFLUENZA VACCINE [facility] Test 16:18:33 [code = INFLUENZA VACCINE] Future Scheduled 2021-11-03 COVID-19 [facility]ACCINE ([facility] 06:47:29 [code = COVID-19 VACCINE (1)] Future Scheduled 2021-11-03 Screening for [facility] Test 06:47:29 malignant neoplasm of cervix (procedure) [code = 482394396] Future Scheduled 2021-11-[address] [facility] Test 06:47:29 [code = COLONOSCOPY SCREENING] Future Scheduled 2021-11-03 SHINGLES VACCINES (#1) [facility] Test 06:47:29 [code = SHINGLES VACCINES (#1)] Future Scheduled 2021-11-03 BREAST CANCER [facility] Test 06:47:29 SCREENING [code = BREAST CANCER SCREENING] Future Scheduled 2021-11-03 INFLUENZA VACCINE [facility] Test 06:47:29 [code = [...] malignant neoplasm of colon (procedure) [code = 279722739] Future Scheduled 2013 [facility]00 malignant neoplasm of colon (procedure) [code = 748742927] Future Scheduled 2013 [facility] 00:[facility]:00 malignant neoplasm of colon (procedure) [code = 268309890] Future Scheduled 2013 [facility] 00:00:00 malignant neoplasm of colon (procedure) [code = 563176743] Future Scheduled 2013 [facility] 00:00:00 malignant neoplasm of colon (procedure) [code = 381979277] Future Scheduled 2013 [facility] 00:00:00 malignant neoplasm of colon (procedure) [code = 517041192] Future Scheduled 2013 [facility] 00:00:00 malignant neoplasm of colon (procedure) [code = 284669599] Future Scheduled 2013 [facility] 00:00:00 malignant neoplasm of colon (procedure) [code = 612833238] Future Scheduled 2013 [facility] 00:00:00 malignant neoplasm of colon (procedure) [code = 804055064] Future Scheduled 2013 [facility] 00:00:00 malignant neoplasm of colon (procedure) [code = 337184513] Future Scheduled 2013 [facility] 00:00:00 malignant neoplasm of colon (procedure) [code = 137282473] Future Scheduled 2013 SHINGLES VACCINES (1 [facility] [...] malignant neoplasm of cervix (procedure) [code = 804822172] Future Scheduled 1993 [facility] 00:00:00 malignant neoplasm of cervix (procedure) [code = 436060870] Future Scheduled 1993 [facility] 00:00:00 malignant neoplasm of cervix (procedure) [code = 003605894] Future Scheduled 1993 [facility] 00:00:00 malignant neoplasm of cervix (procedure) [code = 786742241] Future Scheduled 1993 [facility] 00:00:00 malignant neoplasm of cervix (procedure) [code = 132050378] Future Scheduled 1993 [facility] 00:00:00 malignant neoplasm of cervix (procedure) [code = 515376022] Future Scheduled 1993 [facility] 00:00:00 malignant neoplasm of cervix (procedure) [code = 736547547] Future Scheduled 1993 [facility] 00:00:00 malignant neoplasm of cervix (procedure) [code = 330915581] Future Scheduled 1993 [facility] 00:00:00 malignant neoplasm of cervix (procedure) [code = 001297011] Future Scheduled 1993 [facility] 00:00:00 malignant neoplasm of cervix (procedure) [code = 970268737] Future Scheduled 1993 [facility] 00:00:00 malignant neoplasm of cervix (procedure) [code = 186504284] Future Scheduled 1993 [facility] 00:00:00 malignant neoplasm of cervix (procedure) [code = 972214376] Future Scheduled 1993 [facility] 00:00:00 malignant neoplasm of cervix (procedure) [code = 909626429] Future Scheduled 1993 [facility] 00:00:00 malignant neoplasm of cervix (procedure) [code = 548461708] Future Scheduled 1993 [facility] 00:00:00 malignant neoplasm of cervix (procedure) [code = 432455695] Future Scheduled 1993 [facility] 00:00:00 malignant neoplasm of cervix (procedure) [code = 450493087] Future Scheduled 1993 [facility] 00:00:00 malignant neoplasm of cervix (procedure) [code = 521277430] Future Scheduled 1993 [facility] 00:00:00 malignant neoplasm of cervix (procedure) [code = 642823053] Future Scheduled 1993 [facility] 00:00:00 malignant neoplasm of cervix (procedure) [code = 499189048] Future Scheduled 1993 [facility] 00:00:00 malignant neoplasm of cervix (procedure) [code = 136599653] Future Scheduled 1993 [facility] 00:00:00 malignant neoplasm of cervix (procedure) [code = 002682608] Future Scheduled 1993 [facility] 00:00:00 malignant neoplasm of cervix (procedure) [code = 729669555] Future Scheduled 1984-02-[address] [facility] cervix (procedure) [code = 086639186] Future Scheduled 1984-02-[address] [facility] 00:00:00 [facility] cervix (procedure) [code = 082476597] Future Scheduled 1984-02-[address] [facility] Test 00:00:00 [facility] cervix (procedure) [code = 565458926] Future Scheduled 1984-02-[address] [facility] Test 00:00:00 [facility] cervix (procedure) [code = 859475104] Future Scheduled 1984-02-[address] [facility] Test 00:00:00 [facility] cervix (procedure) [code = 380015471] Future Scheduled 1984-02-[address] [facility] Test 00:00:00 [facility] cervix (procedure) [code = 837556382] Future Scheduled 1981 HEPATITIS C SCREENING [facility] [...] [facility] breast (procedure) [code = 432505640] Future Scheduled [address] [facility] 00:00:00 (combo) [code = CT [facility] enter Colonography (combo)] Future Scheduled [address] [facility] 00:00:00 malignant [facility] colon (procedure) [code = 205509920] Future Scheduled [address] [facility] 00:00:00 [facility] colon (procedure) [code = 675521033] Future Scheduled [address] [facility] Test 00:00:00 [facility] colon (procedure) [code = 027191947] Future Scheduled [address] [facility] Test 00:00:00 [facility] colon (procedure) [code = 927969988] Future Scheduled 1963 Sigmoidoscopy [facility] Future Scheduled [address] [facility] 00:00:00 malignant [facility] breast (procedure) [code = 264641677] Future Scheduled [address] [facility] 00:00:00 (combo) [code = CT Medical [facility] enter Colonography (combo)] Future Scheduled [address] [facility] 00[facility]00:00 [facility] colon (procedure) [code = 192115281] Future Scheduled [address] [facility] 00:00:00 malignant [facility] colon (procedure) [code = 443613798] Future Scheduled [address] [facility] 00:00:00 [facility] colon (procedure) [code = 485582648] Future Scheduled [address] [facility] 00:00:00 [facility] colon (procedure) [code = 473916190] Future Scheduled 1963 S[facility]oidoscopy [facility] Future Scheduled [address] [facility] 00:00:00 [facility] breast (procedure) [code = 891260304] Future Scheduled [address] [facility] 00:00:00 (combo) [code = CT Medical C enter Colonography (combo)] Future Scheduled [address] [facility] 00:00:00 [facility] colon (procedure) [code = 614363502] Future Scheduled [address] [facility] 00:00:00 malignant [facility] colon (procedure) [code = 871913253] Future Scheduled [address] [facility] Test 00:00:00 malignant [facility]oplasm [facility] colon (procedure) [code = 589102880] Future Scheduled [address] [facility] Test 00:00:00 [facility] colon (procedure) [code = 691229449] Future Scheduled 1963 [facility]oidoscopy [facility] Future Scheduled [address] [facility] 00:00:00 malignant [facility] breast (procedure) [code = 355748920] Future Scheduled [address] [facility] 00:00:00 (combo) [code = CT Medical C enter Colonography (combo)] Future Scheduled [address] [facility] Test 00:00:00 malignant [facility]oplasm [facility] colon (procedure) [code = 310126627] Future Scheduled [address] [facility] Test 00:00:00 malignant neoplasm [facility] colon (procedure) [code = 465473063] Future Scheduled [address] [facility] Test 00:00:00 malignant neoplasm [facility] colon (procedure) [code = 720015296] Future Scheduled [address] [facility] 00:00:00 malignant [facility]oplasm [facility] colon (procedure) [code = 337866012] Future Scheduled 1963 [facility]oidoscopy [facility] [address] [facility] [facility] Test 00:00:00 malignant neoplasm of [facility] breast (procedure) [code = 099812346] Future Scheduled [address] [facility] 00:00:00 (combo) [code = CT Medical C enter Colonography (combo)] Future Scheduled [address] [facility] [facility] 00[facility]00:00 malignant neoplasm [facility] colon (procedure) [code = 854739674] Future Scheduled [address] [facility] Test 00:00:00 malignant [facility] (procedure) [code = 197153585] Future Scheduled [address] [facility] 00:[facility]00 malignant [facility] colon (procedure) [code = 828217106] Future Scheduled [address] [facility] 00:00:00 malignant [facility] colon (procedure) [code = 965503385] Future Scheduled 1965 Sigmoidoscopy [code = [facility] [address] [facility] 00:00:00 malignant neoplasm [facility] breast (procedure) [code = 367220071] Future Scheduled [address] [facility] 00:00:00 (combo) [code = CT Medical C enter Colonography (combo)] Future Scheduled [address] [facility] 00:00:00 malignant ne[facility] colon (procedure) [code = 136945615] Future Scheduled [address] [facility] 00:00:00 malignant ne[facility] colon (procedure) [code = 082784403] Future Scheduled [address] [facility] 00:00:00 malignant ne[facility] colon (procedure) [code = 107009901] Future Scheduled [address] [facility] 00:00:00 malignant [facility] colon (procedure) [code = 710888382] Future Scheduled 1965 Sigmoidoscopy [code = [facility]] [facility] r Future Scheduled IMM Influenza Seasonal [facility] May to October (>/= 19 yrs) [code = IMM Influenza Seasonal Oct to October (>/= 19 yrs)] Future Scheduled IMM Influenza Seasonal [facility] May to October (>/= 19 yrs) [code = IMM Influenza Seasonal Oct to October (>/= 19 yrs)] Future Scheduled IMM Influenza Seasonal [facility] May to October (>/= 19 yrs) [code = IMM Influenza Seasonal May to October (>/= 19 yrs)] [facility] malignant neoplasm of colon (procedure) [code = 751594353] Future Scheduled Colorectal Cancer Scrn [facility] Annual (FIT/FOBT) Age 50 to 75 [code = Colorectal Cancer Scrn Annual (FIT/FOBT) Age 50 to 75] Future Scheduled Breast Cancer Scrn [facility] (Yearly) [code = Breast Cancer Scrn (Yearly)] Future Scheduled [facility]ening for [facility] malignant neoplasm of cervix (procedure) [code = 227662806] Future Scheduled [facility]ening [facility] malignant neoplasm of cervix (procedure) [code = 504611082] Future Scheduled Cervical Cancer Scrn [facility] (3 Yrs) [code = Cervical Cancer Scrn (3 Yrs)] Future Scheduled COVID-19 Vaccine (1) [facility] [code = COVID-19 Vaccine (1)] Encounters Start End Encounter Admission Attending Care Care Encounter Source Date/Time Date/Time Type Type Clinicians Facility Department ID 2023-12-07 2023-12-07 Outpatient R WEIWILLIAMTYSHAWN [facility] B [id number] [facility] 09:30:00 09:30:00 SAURABH CARVAJAL [facility] 2023-05-11 2023-05-11 Outpatient VINEET LIM [facility] [id number] SLE 00:00:00 00:00:00 JAE 2023-04-17 2023-04-17 Outpatient VINEET LIM [facility] [id number] SLE 00:00:00 00:00:00 JAE 2023-03-14 2023-03-14 Outpatient VINEET LIM [facility] [id number] SLE 11:59:11 11:59:11 KENT 2023-01-16 2023-01-16 Travel 1.2.840.1 1.2.765.744 [id number] Methodi 00:00:00 00:00:[address] 3.430.2.7 0.2.7.3.698 Ho spita .3.141505 084.8 l .8 2023-01-16 2023-01-16 Transcribe Boris, 1.2.840.1 [id number] Methodi 00:00:00 00:00:00 Orders Shawna 46646.1.[address] 3.430.2.7 Hospit a .3.436441 l .8 2023-01-16 2023-01-16 Travel 1.2.840.1 1.2.955.043 [id number] Methodi 00:00:00 00:00:[address] 3.430.2.7 0.2.7.3.698 Ho spita .3.861461 084.8 l .8 2023-01-16 2023-01-16 Transcribe Boris, 1.2.840.1 [id number] [id number] Methodi 00:00:00 00:00:00 Orders Shawna 99080.1.[address] 3.430.2.7 Hospit a .3.928581 l .8 2023-01-10 2023-01-10 Outpatient VINEET LIM [facility] [id number] SLEH 13:49:37 13:49:37 KENT 2023-01-03 2023-01-03 Outpatient VINEET LIM [facility] [id number] SLE 00:00:00 00:00:00 KENT 2022-12-19 2022-12-19 Outpatient VINEET LIM [facility] [id number] SLEH 00:00:00 00:00:00 KENT 2022-12-16 2022-12-[address] [facility] [id number] [facility] [address] 00:00:00 00:00:00 Only [facility] 2022-12-14 2022-12-14 Telephone Wei [facility] 1.2.840.11 [id number] Univers 00:00:00 00:00:00 Saurabh ORANTES 350.1.13.10 it y of WOMEN'S 4.2.7.2.686 [facility] HEALTH [id number] [address] 2022-12-06 2022-12-06 Outpatient R SAURABH CARVAJAL [facility] B [id number] Univers 13:00:00 13:52:57 TRISAURABH ROSALES [facility] 2022-12-06 2022-12-06 Office Wei [facility] 1.2.840.114 [id number] Univers 13:00:00 13:52:57 Visit Saurabh ORANTES 350.1.13.10 it y of WOMEN'S 4.2.7.2.686 [facility] HEALTH [id number] [address] 2022-12-06 2022-12-06 Orders Doctor WOLF 1.2.840.114 [id number] Univers 00:00:00 00:00:00 Only Unassigned, JUANCARLOS 350.1.13.10 [facility] 4.2.7.2.686 [place] as [id number] [address] 2022-11-30 2022-11-30 Outpatient R SAURABH CARVAJAL [facility] B [id number] Univers 10:30:00 10:30:00 MIKALSAURABH LEDESMA [facility] 2022-11-30 2022-11-30 Outpatient R SAURABH CARVAJAL [facility] B [id number] Univers 10:30:00 10:30:00 [facility] 2022-10-04 2022-10-04 Telephone Ethan [facility] [id number] 00:[facility] 00:00:00 [facility] 2022-09-13 2022-09-13 Office VINEET Rylanelmo [facility] [id number] [facility] [address] 13:30:00 13:45:00 [facility] 2022-09-13 2022-09-13 Outpatient VINEET LIM [facility] SLE [id number] SLE 11:41:47 11:41:47 [place] 2022-09-02 2022-09-02 Documentat Riley [facility] [id number] 00:00:00 00:00:00 cedric Mehta [facility] 2022-07-18 2022-07-18 Outpatient VINEET PANTOJA, SLE SLE [id number] SLE 14:13:32 23:59:00 [facility] 2022-07-18 2022-07-18 [facility] [id number] 14:00:00 23:59:00 Encounter [facility] 2022-07-18 2022-07-18 Outpatient VINEET PANTOJA, SLE SLE [id number] SLE 14:13:03 13:59:00 [facility] 2022-07-18 2022-07-18 [facility] [id number] 12:30:00 13:59:00 Encounter [facility] 2022-07-18 2022-07-18 [facility] Kit [facility] [id number] 10:02:46 12:29:00 Encounter [facility] 2022-07-18 2022-07-18 Outpatient KIT [facility] SLE [id number] SLEH 10:02:45 12:29:00 [facility] 2022-07-06 2022-07-06 [facility]at [facility] [id number] 00:00:00 00:00:00 ion [facility] 2022-06-24 2022-06-24 Documentat [facility] [id number] 00:00:00 00:00:00 ion [facility] 2022-06-23 2022-06-23 Documentat Riley [facility] [id number] 00:00:00 00:00:00 ion [facility] 2022-06-21 2022-06-21 Office VINEET Lim [facility] [id number] 15:15:00 15:45:00 Visit [facility] 2022-06-21 2022-06-21 Outpatient VINEET LIM [facility] SLE [id number] SLE 14:20:07 14:20:07 [place] 2022-06-21 2022-06-21 Orders [facility] [id number] 00:00:00 00:00:00 Only [facility] 2022-06-20 2022-06-20 Office Rylankristyfrancine [facility] [id number] 14:45:00 15:15:00 Visit [facility] 2022-06-20 2022-06-20 Outpatient VINEET LIM SLE SLE [id number] SLEH 00:00:00 00:00:00 [place] 2022-06-16 2022-06-16 Outpatient R SAURABH CARVAJAL [facility] B [id number] Univers 00:00:00 00:00:00 SAURABH CARVAJAL [facility] 2022-06-06 2022-06-06 Outpatient R SAURABH CARVAJAL [facility] B [id number] Univers 00:00:00 00:00:00 SAURABH CARVAJAL [facility] 2022-05-20 2022-05-20 Concepcion Lin [facility] [id number] 00:00:00 00:00:00 Only [facility] 2022-05-20 2022-05-20 Documentat Riley [facility] [id number] 00:00:00 00:00:00 ion [facility] 2022-05-14 2022-05-16 Inpatient ER KEVIN MCDONNELL Emergency [id number] [facility] 16:03:00 19:02:00 LEANNE 2022-05-14 2022-05-16 Hospital ER Jaguar Harley SalesJohn [facility] [id number] 16:03:00 19:02:00 Encounter Leanne Mcdonnell [facility] 2022-05-15 2022-05-15 Travel [facility] [id number] [facility] 00:00:00 00:00:00 [facility] 2022-05-14 2022-05-14 Orders [facility] [id number] 00:00:00 00:00:00 Only [facility] 2021-12-08 2021-12-08 Case Wei [facility] 1.2.840.114 [id number] [facility] 00:00:00 00:00:00 Management Williamtyshawn SHAMA 350.1.13.10 ity of WOMEN'S 4.2.7.2.686 [facility] [id number] [facility] [address] 2021-12-07 2021-12-07 Software Reverse Engineer 2, Adc Lab [facility] 1.2.840.114 [id number] Univers 11:15:00 11:30:00 Visit Eddie Austin 350.1.13.10 it[place] [id number] [address] 2021-12-07 2021-12-07 Outpatient R EDDIE AUSTIN [facility] [id number] Univers 11:15:00 11:15:00 ity [facility] 2021-11-30 2021-11-30 Office Saurabh Carvajal [facility] 1.2. 840.114 [id number] Univers 09:00:00 10:42:48 Visit Eddie Austin 350.1.13.10 it[place] [id number] [address] 2021-11-30 2021-11-30 Outpatient R EDDIE AUSTIN [facility] [id number] Univers 09:00:00 10:42:48 ity [facility] 2021-11-30 2021-11-30 Outpatient R EDDIE AUSTIN [facility] [id number] Univers 09:00:00 09:00:00 ity [facility] 2021-11-24 2021-11-24 Pre Visit TERESA Cao 1.2.999.554 [id number] Univers 00:00:00 00:00:00 Outreach Maya CORADO 350.1.13.10 [place] [id number] [address] 2021-08-05 2021-08-05 Outpatient R EDDIE AUSTIN [facility] [id number] Univers 15:30:00 15:30:00 ity [facility] 2021-08-02 2021-08-02 Pre Visit TERESA Cao 1.2.170.665 [id number] Univers 00:00:00 00:00:00 Outreach Maya CORAD[place] 350.1.13.10 [place] [id number] [address] 2021-04-22 2021-04-22 Letter LUCIANO Patel 1.2.840.114 [id number] Univers 00:00:00 00:00:00 (Out) Fannie Woodson JUANCARLOS 350.1.13.10 i ty of HOSPITAL 4.2.7.2.686 [place] as [id number] [facility] [address] 2021-04-21 2021-04-21 Laboratory Only, Ang Db Test [facility] 1.2.8 40.114 [id number] Univers 16:03:49 16:18:49 Only Vielka Britton [facility] 350.1.13.10 ity of [place] 4.2.7.2.686 [place] as Delmar?Blea [id number] [address] Medical Office Building 2021-04-21 2021-04-21 Outpatient R KANNAN [facility] [id number] Univers 15:45:00 15:45:00 VIELKA ity [facility] 2021-04-21 2021-04-21 Letter Doctor WOLF 1.2.840.114 [id number] Univers 00:00:00 00:00:00 (Out) Unassigned, JUANCARLOS 350.1.13.10 ity of [place] HOSPITAL 4.2.7.2.686 [place] as [id number] [facility] [address] 2021-04-21 2021-04-21 Letter Doctor LUCIANO 1.2.840.114 [id number] Univers 00:00:00 00:00:00 (Out) Unassigned, JUANCARLOS 350.1.13.10 ity of [place] HOSPITAL 4.2.7.2.686 [place] as [id number] [facility] [address] 2021-04-21 2021-04-21 Orders Doctor LUCIANO 1.2.840.114 [id number] Univers 00:00:00 00:00:00 Only Unassigned, JUANCARLOS 350.1.13.10 ity of [place] HOSPITAL 4.2.7.2.686 [place] [id number] [facility] [address] 2021 2021-02-27 Inpatient ASHA Davies MEDI.01 [id number] [facility] 15:47:00 11:36:[address] 2021-02-25 2021-02-25 Outpatient BETH Antunez LABO [id number] [facility] 18:45:00 18:45:00 Jaiden 73 [facility] 2020-12-28 2020-12-28 Outpatient MHIE MHIE [id number] [facility] 15:45:00 15:45:00 00 jodie Mentor 2020-12-28 2020-12-28 Outpatient MHIE LINDAIE [id number] Memoria 15:45:00 15:45:00 00 jodie [facility] 2020-07-02 2020-07-02 [facility] 1.2.705.493 [id number] 14:38:00 16:16:00 Elier Chris 350.1.13.10 [place] 4.2.7.2.686 [place] [id number] 2020-07-02 2020-07-02 Emergency X [facility] ERT [id number] Univers 14:28:00 14:28:00 [facility] 2020-04-29 2020-04-29 Emergency [facility] 1.2.153.703 [id number] 12:18:00 15:08:00 Eddie Chris 350.1.13.10 [place] 4.2.7.2.686 [place] [id number] 4 2020-04-29 2020-04-29 Emergency X [facility] ERT [id number] Univers 12:07:00 12:07:00 EDDIE [facility] 2020-03-17 2020-03-17 [facility] 1.2.413.289 [id number] 11:37:56 13:51:00 Elier Chris 350.1.13.10 [place] 4.2.7.2.686 [place] [id number] 084 2020-03-17 2020-03-17 Emergency X [facility] ERT [id number] Univers 11:26:00 11:26:00 [facility] 2020-03-17 2020-03-17 Orders Doctor WOLF 1.2.840.114 [id number] 00:00:00 00:00:00 Only Unassigned, JUANCARLOS 350.1.13.10 [place] [address].2.7.2.686 [id number] 009 2019-05-29 2019-05-29 Emergency X PADILLA, [facility] ERT [id number] Univers 06:47:32 09:46:00 MATEUS morris [facility] 2018-12-10 2018-12-10 Office nullFlavo Family [id number] Memoria 21:03:58 22:56:31 Visit r Practice l Katharine Andrews Same Day 2018-12-10 2018-12-10 Emergency nullFlavo Emergency [id number] Memoria 16:20:39 17:56:00 r Center jodie (6520) ELIEZER Jenkins 2018-12-10 2018-12-10 Outpatient [facility] [id number] [place] 16:03:58 16:03:58 Health 2018-12-10 2018-12-[address] [facility] [id number] [place] 11:20:39 11:20:39 [facility] 2017-09-01 2017-09-[address] [facility] [id number] [place] 10:29:00 10:29:00 [facility] 2015-02-04 2015-02-05 Outpt Diag nullFlavo [facility] [id number] Memoria 13:00:00 04:59:00 Services r Outpatient 00 l Imaging Nghia Morin 2015-02-04 2015-02-05 Outpt Diag nullFlavo [facility] [id number] Memoria 13:00:00 04:59:00 Services r Outpatient 00 l Imaging Nghia Morin 2015-02-04 2015-02-04 Outpatient Ashish, 2.16.840. 2.16.840.1. [id number] 08:00:00 23:59:00 Julian Zheng 1.322044. [id number] 00 3.615.0.1 5.0.164 82 8513-05-11 2015-01-[address] [facility] [id number] Memoria 15:04:00 04:59:00 r Mentor 31 l [facility] 2015-01-05 2015-01-[address] [facility] [id number] Memoria 15:04:00 04:59:00 r Mentor 31 l [facility] 2015-01-05 2015-01-05 Outpatient Silvano-Alexei 2.16.840. 2.16.840. 1. [id number] 10:04:00 23:59:00 entes, 1.451562. 945391.3.61 31 Julita Sales 3.615.0.1 5.0.711 70 3357-09-23 2014-05-20 Bedded [facility] [id number] Memoria 11:14:00 19:30:00 Outpatient r Mentor 00 [facility] 2014-05-20 2014-05-20 Bedded [facility] [id number] Memoria 11:14:00 19:30:00 Outpatient r Mentor 00 [facility] 2014-05-20 2014-05-20 Outpatient Francis, 2.16.840. 2.16.840.1. [id number] 06:14:00 14:30:00 Larry A 1.568907. 809306.3.61 00 3.615.0.1 5.0.850 03 0027-05-05 2014-01-03 Inpatient [facility] [id number] Memoria 07:50:00 03:00:[address] 2013-12-30 2014-01-03 Inpatient [facility] [id number] Memoria 07:50:00 03:00:[address] 2013-12-30 2014-01-02 Outpatient Terminella, 2.16.840. 2.16.840. 1. [id number] 02:50:00 22:00:00 Rivera 1.522927. 329548.3.61 25 3.615.0.1 5.0.101 01 Results Test Description [...] s not applicable for dialysis estefanía santos Automatic Engraver ID - MMLIPID [id number] 13:07:14 Test Item Value Reference Range Interpretation [...] Borderline 130-159 High 160-189 Very High >=190 Automatic Engraver ID - MMCBC W/PLT COUNT & AUTO [id number] 12:48:07 Test Item Value Reference Range Interpretation [...] (BEAKER) (test code = 2801) BASIC METABOLIC [id number] 14:39:36 Test Item Value Reference Range Interpretation [...] not appl icable for dialysis patien ts Automatic Engraver ID - FSECBC W/PLT COUNT & AUTO [id number] 14:24:12 Test Item Value Reference Range Interpretation [...] (BEAKER) (test code = 2801) COMPREHENSIVE METABOLIC [id number] 12:53:08 Test Item Value Reference Range Interpretation [...] not appl icable for dialysis patien ts Automatic Engraver ID - MARCOCBC W/PLT COUNT & AUTO [id number] 12:38:19 Test Item Value Reference Range Interpretation [...] = 2801) CT, HEART CORONARY YESY, WO [id number] 10:02:00[facility] ppo-oon for dr limUnlisted Reason for Exam - Click Yes and Enter Reason Below->No [facility] : 1965 Sex: FAddendum BeginsREPORT STATUS:A I concur with the nonvascular findings. Signed: Tim Seay MDReport Verified Date/Time: 07/29/2022 10:02:26 Reading Location: [facility] Radiology ReadingRoomAddendum EndsFINAL REPORT CT scan for Coronary Calcium scoring, 18-Jul-22 INDICATION: This is a 57 -year old female with increased cardiac risk presents for calcium scoring TECHNIQUE: Spiral acquisition without contrast administration using a Siemens CT scan. Calcium score is analysed using the Turbo-Trac USAa software. This exam was performed according to [...] performed. Coronary calcification was analyzed using the Vitrea system software. These are the results of [...] An addendum will be dictated by the Double Head Machine Operator Radiologist regarding the nonvascular findings. THE REPORT WILL ONLY BE CONSIDERED COMPLETE AFTER THE ADDENDUM HAS BEEN DICTATED. Signed: Jean-Pierre Yarbrough [facility] Verified Date/T karissa: 07/23/2022 08:08:03 2D Echo W/Doppler(CW/PW/Color)2022-07-18 18:01:25Ejection FractionSLEH ECHO [facility] [place] Echo W/Doppler(CW/PW/Color)2022-07-18 18:01:25Ejection FractionSLEH ECHO [facility] Echo W/Doppler(CW/PW/Color) 2022-07-18 18:01:25Ejection FractionSLEH ECHO [facility] Echo W/Doppler(CW/PW/Color)2022-07-18 18:01:25Ejection FractionSLEH ECHO [facility] Echo W/Doppler(CW/PW/Color)2022-07-18 18:01:25Ejection FractionSLEH ECHO [facility] Echo W/Doppler(CW/PW/Color) 2022-07-18 18:01:25Ejection FractionSLEH ECHO HEARTLAB Roberts ChapelCOMPREHENSIVE METABOLIC [id number] 15:38:11 Test Item Value Reference Range Interpretation [...] not appl icable for dialysis patien ts Automatic Engraver ID - BSCBC W/PLT COUNT & AUTO [id number] 15:15:49 Test Item Value Reference Range Interpretation [...] code = 2801) [facility] IMAGING, MULTI, PHARM, [id number] 16:45:00Unlisted Reason for Exam - Click Yes and Enter Reason Below->No [facility] : 1965 Sex: FFINAL REPORT PROCEDURE: Rest/Stress MYOCARDIAL PERFUSION SPECT with regadenoson\\XA9\\ CPT CODE: 65635 INDICATION: Chest pain R07.9 HISTORY: Cardiac risk [...] 22.5-36.0 H (BEAKER) (test code = 760) [id number] 04:51:58 Test Item Value Reference Range Interpretation Comments MAGNESIUM (BEAKER) (test code = 1.8 mg/dL 1.6-2.6 627) Automatic Engraver ID - PIAYA LBASIC METABOLIC [id number] 04:51:57 Test Item Value Reference Range Interpretation [...] G3b Moderately to s everely 30-44 G4 Sever ly decreased 15-29 G5 Kidney failure <15Repo rted eGFR is based on the CKD-EPI 2020 equation t hat does not use a race coefficientEsti mated GFR is not as accur ate as Creatinine Katherine antionette in predicting glom erular filtration rate . Estimated GFR is not appl icable for dialysis patien ts Automatic Engraver ID - GWEN [id number] 04:32:03 Test Item Value Reference Range Interpretation [...] WBC 0-0 (BEAKER) (test code = 413) [id number] 16:30:12 Test Item Value Reference Range Interpretation Comments PARTIAL THROMBOPLASTIN TIME 37.5 seconds 22.5-36.0 H (BEAKER) (test code = 760) [id number] 06:58:36 Test Item Value Reference Range Interpretation [...] (test code = 413) HIGH SENSITIVITY TROPONIN [id number] 02:22:02 Test Item Value Reference Range Interpretation Comments HIGH SENSITIVITY 182 pg/ml See_Comment H [Automated message] TROPONIN I (test code The stem which = 1960956) generated this result transmitted ref erence range: <=17. Th e reference range was not used to int erpret this result as normal/abnormal . Automatic Engraver ID - PIAYA LThe CONGRESSIONAL ASSISTANT STAT High Sensitivity Troponin-I results should be used in conjunction with other diagnostic information such as ECG, clinical observations and information, and patient symptoms to aid in the diagnosis of NV.SARS-CoV2/RT-PCR (Asymptomatic ONLY)2022-05-15 01:13:52 Test Item Value Reference Interpretation Comments Range SARS-COV2/RT-PCR Negative Negative The SARS-Co V-2 (test code = target nucleic 28385-4) acids are not detected in thi s [...] om SARS-CoV-2 in a nasopharyngeal swab specimen [facility] from individual s suspected of COVID-19 by [...] revoked sooner. Fact Sheet for Healthcare Providers: https://www.[employer]/Documents/Xp ert%20Xpress%20SAR S%20CoV-2/Fact%20S heets/302-7082%20S ARS-COV-2%20HEALTH CARE%20PROVIDERS%2 0FACT%20SHEET.pdf Fact Sheet for Healthcare Patients: https://www.[employer]/Documents/Xp ert%20Xpress%20SAR S%20CoV-2/Fact%20S heets/3023801%20S ARS-COV-2%20PATIEN T%20FACT%20SHEET.p df Lab Interpretation Normal (test code = 58726-8) [facility] (Asymptomatic ONLY)2022-05-15 01:13:52 Test Item Value Reference Interpretation Comments Range SARS-COV2/RT-PCR Negative Negative The SARS-Co V-2 (test code = target nucleic 01278-5) acids are not detected in thi s [...] revoked sooner. Fact Sheet for Healthcare Providers: https://www.[employer]/Documents/Xp ert%20Xpress%20SAR S%20CoV-2/Fact%20S heets/302-3802%20S ARS-COV-2%20HEALTH CARE%20PROVIDERS%2 0FACT%20SHEET.pdf Fact Sheet for Healthcare Patients: https://www.[employer]/Documents/Xp ert%20Xpress%20SAR S%20CoV-2/Fact%20S heets/302-3801%20S ARS-COV-2%20PATIEN T%20FACT%20SHEET.p df Lab Interpretation Normal (test code = 59637-3) [facility]As[facility] ONLY[facility]2022-05-15 01:13:52 Test Item Value Reference Interpretation Comments Range SARS-COV2/RT-PCR Negative Negative The SARS-Co V-2 (test code = target nucleic 85800-9) acids are not detected in thi s [...] revoked sooner. Fact Sheet for Healthcare Providers: https://www.[employer]/Documents/Xp ert%20Xpress%20SAR S%20CoV-2/Fact%20S heets/302-3802%20S ARS-COV-2%20HEALTH CARE%20PROVIDERS%2 0FACT%20SHEET.pdf Fact Sheet for Healthcare Patients: https://www.[employer]/Documents/Xp ert%20Xpress%20SAR S%20CoV-2/Fact%20S heets/302-3801%20S ARS-COV-2%20PATIEN T%20FACT%20SHEET.p df Lab Interpretation Normal (test code = 55414-8) [facility]2022-05-15 01:13:52 Test Item Value Reference Interpretation Comments Range SARS-COV2/RT-PCR Negative Negative The SARS-Co V-2 (test code = target nucleic 77209-2) acids are not detected in thi s [...] revoked sooner. Fact Sheet for Healthcare Providers: https://www.[employer]/Documents/Xp ert%20Xpress%20SAR S%20CoV-2/Fact%20S heets/302-3802%20S ARS-COV-2%20HEALTH CARE%20PROVIDERS%2 0FACT%20SHEET.pdf Fact Sheet for Healthcare Patients: https://www.[employer]/Documents/Xp ert%20Xpress%20SAR S%20CoV-2/Fact%20S heets/302-3801%20S ARS-COV-2%20PATIEN T%20FACT%20SHEET.p df Lab Interpretation Normal (test code = 19887-1) [facility]As[facility]omatic ONLY)2022-05-15 01:13:52 Test Item Value Reference Interpretation Comments Range SARS-COV2/RT-PCR Negative Negative The SARS-Co V-2 (test code = target nucleic 21089-7) acids are not detected in thi s [...] revoked sooner. Fact Sheet for Healthcare Providers: https://www.[employer]/Documents/Xp ert%20Xpress%20SAR S%20CoV-2/Fact%20S heets/302-3802%20S ARS-COV-2%20HEALTH CARE%20PROVIDERS%2 0FACT%20SHEET.pdf Fact Sheet for Healthcare Patients: https://www.[employer]/Documents/Xp ert%20Xpress%20SAR S%20CoV-2/Fact%20S heets/302-3801%20S ARS-COV-2%20PATIEN T%20FACT%20SHEET.p df Lab Interpretation Normal (test code = 15341-3) [facility]omatic ONLY[facility]2022-05-15 01:13:52 Test Item Value Reference Interpretation Comments Range SARS-COV2/RT-PCR Negative Negative The SARS-Co V-2 (test code = target nucleic 24153-6) acids are not detected in thi s [...] (test code = This test has been FAZUIA) authorized by FDA under an EUA for [...] revoked sooner. Fact Sheet for Healthcare Providers: https://www.[employer]/Documents/Xp ert%20Xpress%20SAR S%20CoV-2/Fact%20S heets/302-3802%20S ARS-COV-2%20HEALTH CARE%20PROVIDERS%2 0FACT%20SHEET.pdf Fact Sheet for Healthcare Patients: https://www.[employer]/Documents/Xp ert%20Xpress%20SAR S%20CoV-2/Fact%20S heets/302-3801%20S ARS-COV-2%20PATIEN T%20FACT%20SHEET.p df Lab Interpretation Normal (test code = 12101-8) [facility])2022-05-15 01:13:52 Test Item Value Reference Range Interpretation Comments SARS-COV2/RT-PCR Negative Negative The SARS-Co V-2 target (test code = nucleic acids a re not 1891464) detected in thi s specimen. Negative result [...] rapid, real-time RT-PC R test intended for e qualitative detection of nu cleic acid [...] revoked sooner. Fact Sheet for Healthcare Providers: https://www.[employer]/Documents/Xpert%20Xpress%20SARS%20CoV-2/Fact%20Sheets/3023802%19ENVV-XOG-8%20 HEALTHCARE%20PROVIDERS%20FACT%20SHEET.pdf Fact Sheet for Healthcare Patients: https://www.[employer]/Documents/Xpert%20Xp ress%20SARS%20CoV-2/Fact%20Sheets/3023801%07OFDX-UDQ-6%20PATIENT%20FACT%20SHEET .pdfHIGH SENSITIVITY TROPONIN [id number] 23:36:40 Test Item Value Reference Range Interpretation Comments HIGH SENSITIVITY 148 pg/ml See_Comment H [Automated message] TROPONIN I (test code The sy stem which = 4616186) generated this result transmitted ref erence range: <=17. Th e reference range was not used to int erpret this result as normal/abnormal . Automatic Engraver ID - PIAYA LThe CONGRESSIONAL ASSISTANT STAT High Sensitivity Troponin-I results should be used in conjunction with other diagnostic information such as ECG, clinical observations and information, and patient symptoms to aid in the diagnosis of NV.[id number] 23:35:01 Test Item Value Reference Range Interpretation Comments PARTIAL THROMBOPLASTIN TIME 36.2 seconds 22.5-36.0 H (BEAKER) (test code = 760) [id number] 23:33:40 Test Item Value Reference Range Interpretation Comments PARTIAL THROMBOPLASTIN TIME 35.9 seconds 22.5-36.0 (BEAKER) (test code = 760) LIPID [id number] 23:31:17 Test Item Value Reference Range Interpretation [...] Borderline 130-159 High 160-189 Very High >=190 Automatic Engraver ID - DANUTA MPLATELET [id number] 23:02:35 Test Item Value Reference Range Interpretation Comments PLATELET COUNT (BEAKER) (test 166 K/CU MM 150-450 code = 756) Automatic Engraver ID - 6000HIGH SENSITIVITY TROPONIN [id number] 19:17:02 Test Item Value Reference Range Interpretation Comments HIGH SENSITIVITY 57 pg/ml See_Comment H [Automated message] TROPONIN I (test code = The system which [id number]) generated this result transmitted ref erence range: <=17. Th e reference range was not used to int erpret this result as normal/abnormal . Automatic Engraver ID - DANUTA MThe CONGRESSIONAL ASSISTANT STAT High Sensitivity Troponin-I results should be used in conjunction with other diagnostic information such as ECG, clinical observations and information, and patient symptoms to aid in the diagnosis of NV.HIGH SENSITIVITY TROPONIN [id number] 17:36:27 Test Item Value Reference Range Interpretation Comments HIGH SENSITIVITY 22 pg/ml See_Comment H [Automated message] TROPONIN I (test code = The system which 9993376) generated this result transmitted ref erence range: <=17. Th e reference range was not used to int erpret this result as normal/abnormal . Automatic Engraver ID - DANUTA MThe CONGRESSIONAL ASSISTANT STAT High Sensitivity Troponin-I results should be used in conjunction with other diagnostic information such as ECG, clinical observations and information, and patient symptoms to aid in the diagnosis of NV.COMPREHENSIVE METABOLIC [id number] 17:29:31 Test Item Value Reference Range Interpretation [...] not appl icable for dialysis patien ts Automatic Engraver ID - DANUTA MCBC W/PLT COUNT & AUTO [id number] 17:18:57 Test Item Value Reference Range Interpretation [...] (test code = 2801) RAD, CHEST, 2 [id number] 16:44:00Reason for exam:->r/o [facility] 1965 Sex: FFINAL REPORT INDICATION: r/o ACS COMPARISON: None TECHNIQUE: AP and lateral view ofthe chest. FINDINGS: Lungs and pleura: Clear lungs. No effusion.Heart and mediastinum: Normal heart size. Unremarkable mediastinal contours.Osseous structures: No acute abnormality.Other: None. IMPRESSION: No acute intrathoracic abnormality. Signed: Alyssia Nelson MDRepcrossroads regional medical center Verified Date/Time: 05/14/2022 16:44:29 COMPREHENSIVE METABOLIC [id number] 05:15:00 Test Item Value Reference Range Interpretation [...] TOTAL (test code = ALKP) GLUCOSE BEDSIDE [id number] 19:48:00 Test Item Value Reference Range Interpretation Comments GLUCOSE BEDSIDE TESTING (test code = 98 mg/dL 70-110 N GLUBED) - XR SMALL [id number] 19:38:00 [facility] : 1965 Sex: F Name: RO MAYNARD [facility] : 1965 Age/S: 56 / F [address] Unit #: [id number] Loc: [place] [address] Phys: Dawson Ramírez MD Acct: [id number] Dis Date: Status: ADM IN PHONE #: [phone] Exam Date: 02/26/20211899 FAX #: Reason: evaluate for Crohn's EXAMS: CPT: [id number] XR SMALL BOWEL 56938 Fluoro Time: 0 DAP (Gy m2): Air Kerma (mGy): Location of dictation: H 14 Small bowel follow-through: HISTORY: Right upper quadrant pain, evaluate for Crohn's disease. COMMENT: The director information security radiograph shows normal bowel gas pattern. No [...] suggest Crohn's disease. Electronically Signed by Darlin Pink 2021 at 1938 Reported and signed by: Guera Moore M.D. CC: Jaiden Antunez MD; Shawna Escalante MD; Dawson Ramírez MD PAGE 1 Signed Report Name: RO MAYNARD : 1965Age/S: 56 / F [address] Unit #: [id number] Loc: [place] [address] Phys: Dawson Ramírez MD Acct: [id number] Dis Date: Status: ADM IN PHONE #: [phone] Exam Date: 02/26/20211899 FAX #: Reason: evaluate for Crohn's EXAMS: CPT: [id number] XR SMALL BOWEL 91201 Fluoro Time: 0 DAP (Gy m2): Air Kerma (mGy): (Continued) Technologist: Zainab Moran, RT(R)(CT)(MRI) Trnscb Date/Time: 2021 (1937) [place]PXC Orig Print D/T: S: 2021 (1941) PAGE 2 Signed ReportGLUCOSE BEDSIDE [id number] 17:05:00 Test Item Value Reference Range Interpretation Comments GLUCOSE BEDSIDE TESTING (test code 148 mg/dL 70-110 H = GLUBED) - HEPA IMAG INCL GB W [id number] 16:10:00 [facility] : 1965 Sex: F FAX: Jaiden Huff MD [phone] Camps: PM St: ADM FAX: Shawna Scott MD [phone] FAX: Dawson Hodge MD [phone] Name: ALEYDARO [facility] : 1965 Age/S: 56/F [address] Unit #: [id number] Loc: [address] [place] [address] Phys: Dawson Ramírez MD Acct: [id number] Dis Date: Status:ADM IN PHONE #: [phone] Exam Date: 2021 3780 FAX #: Reason: RUQ pain EXAMS: CPT: [id number] HEPA IMAG INCL GB W PHA 93561 EXAMINATION: Nuclear medicine hepatobiliary scan with ejection fraction determination INDICATION: RUQ pain COMPARISON: MRCP previous day LOCATION: S17 TECHNIQUE: Dynamic imaging was obtained of the upper abdomen following the administration of 5.2 mCi Tc-99m Choletec IV. Ejection fraction was determined following gallbladder stimulation with fatty meal (8 ounces of En sure). FINDINGS: After the administration of tracer, relatively [...] MD Technologist: MANUEL Kevin Transcribed Date/Time/By: 2021 (1960) :[place]anaPE1 Orig Print D/T: S: 2021 (4306) PAGE 1 Signed ReportGLUCOSE BEDSIDE [id number] 11:56:00 Test Item Value Reference Range Interpretation Comments GLUCOSE BEDSIDE TESTING (test code 131 mg/dL 70-110 H = GLUBED) CBC W/AUTO [id number] 06:20:00 Test Item Value Reference Range Interpretation [...] NT WITH AUTO DIFFERENTI AL. COMPREHENSIVE METABOLIC [id number] 04:48:00 Test Item Value Reference Range Interpretation [...] 45-117 N TOTAL (test code = ALKP) [id number] 04:48:00 Test Item Value Reference Range Interpretation Comments PHOSPHOROUS (test code = PHOS) 3.8 MG/DL 2.5-4.9 N [id number] 04:48:00 Test Item Value Reference Range Interpretation Comments MAGNESIUM (test code = MAG) 2.1 MG/DL 1.8-2.4 N COMPREHENSIVE METABOLIC [id number] 04:46:00 Test Item Value Reference Range Interpretation [...] TOTAL (test Unit/L 45-117 code = ALKP) [id number] 04:46:00 Test Item Value Reference Range Interpretation Comments PHOSPHOROUS (test code = PHOS) MG/DL 2.5-4.9 [id number] 04:46:00 Test Item Value Reference Range Interpretation Comments MAGNESIUM (test code = MAG) MG/DL 1.8-2.4 [id number] 04:46:00 Test Item Value Reference Range Interpretation [...] may dexter yby method. Completed by Nursing: BODPFQGKZ4084-48-55 04:46:00 Test Item Value Reference Range Interpretation Comments ALCOHOL (test code = ALC) < 3 MG/DL 0-10 N Completed by Nursing: NOCBC W/AUTO [id number] 04:36:00 Test Item Value Reference Range Interpretation [...] DIFF/SCN CRITERIA MDIFF) DRUGS OF ABUSE SCREEN [id number] 21:43:00 Test Item Value Reference Range Interpretation [...] [Automate d code = OPIATURN) SCcutoff message] [facility] system which generated this result transmit [...] [Automa ulysses code = METHAURN) SCcutoff message] [facility] system which generated this result transmit ulysess reference range : <300 NG/ML. The reference range was not used to interpret this result as normal/abnormal . 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 Right upper quadrant pain [...] atrophic. Pancreatic duct is visualized without significant dila tation or side branch ectasia. No evidence of ascites. No bowel obstruction. IMPRESSION: 1. No evidence of cholelithiasis or cholecystitis. 2. No evidence of choledocholithiasis. No biliary dilatation. at 1905 Reported and signed by: Sandi Redding MD CC: Jaiden Antunez MD; Shawna Escalante MD Technologist: Renee Mills RT(R)(CT) Transcribed Date/Time/By: 02/25/2021 (1904) :[email or web address] Orig Print D/T: S: 02/25/2021(1907) PAGE 1 Signed ReportCOVID 19 INHOUSE [id number] 16:22:00 Test Item Value Reference Range Interpretation Comments COVID 19 INHOUSE AG NEGATIVE Negative Per manu facturer, (test code = negative result s should [id number]) be treated aspr esumptive and, if inconsi [...] symptoms co nsistent with COVID-19. CBC W/AUTO [id number] 15:38:00 Test Item Value Reference Range Interpretation [...] WITH AUTO DIFFERENTIAL.NO PLT CLUMPS OBSERVED RBC [id number] 15:38:00 Test Item Value Reference Range Interpretation Comments PLATELET ESTIMATE (test ADEQUATE THOUSAND ADEQUATE code = PLTEST) PLATELET MORPHOLOGY (test NORMAL code = PLTMORPH) CBC W/AUTO [id number] 15:33:00 Test Item Value Reference Range Interpretation [...] code DIFF/SCN CRITERIA = MDIFF) CBC W/AUTO [id number] 15:33:00 Test Item Value Reference Range Interpretation [...] code DIFF/SCN CRITERIA = MDIFF) BASIC METABOLIC [id number] 14:26:00 Test Item Value Reference Range Interpretation [...] CA) 8.7 MG/DL 8.5-10.1 N HEPATIC FUNCTION [id number] 14:26:00 Test Item Value Reference Range Interpretation [...] 93 Unit/L 45-117 N code = ALKP) [id number] 14:26:00 Test Item Value Reference Range Interpretation Comments LIPASE (test code = LIP) 95 Unit/L 114-286 L UA RFLX MICR CULT IF [id number] 14:10:00 Test Item Value Reference Range Interpretation [...] Indication for culture: RiskForSepsis-no oth srcCBC W/AUTO [id number] 14:04:00 Test Item Value Reference Range Interpretation [...] (test code = DIFF/SCN CRITERIA MDIFF) CHEM [id number] 14:26:00 Test Item Value Reference Range Interpretation Comments BUN (test code = BUN) 8 7- [facility]2014-09-22 14:26:00 Test Item Value Reference Range Interpretation Comments Glucose Lvl (test code = Glucose Lvl) 91 70-99 [facility]2014-09-22 14:26:00 Test Item Value Reference Range Interpretation Comments CO2 (test code = CO2) 29 24-32 [facility]2014-09-22 14:26:00 Test Item Value Reference Range Interpretation Comments AGAP (test code = AGAP) 6.7 10.0-20.0 [facility]2014-09-22 14:26:00 Test Item Value Reference Range Interpretation Comments eGFR (test code = eGFR) 86 [facility]2014-09-22 14:26:00 Test Item Value Reference Range Interpretation Comments Creatinine Lvl (test code = Creatinine 0.8 0.5-1.4 Lvl) [facility]2014-09-22 14:26:00 Test Item Value Reference Range Interpretation Comments Chloride Lvl (test code = Chloride Lvl) 104 95-109 [facility]2014-09-22 14:26:00 Test Item Value Reference Range Interpretation Comments Potassium Lvl (test code = Potassium 3.7 3.5-5.1 Lvl) [facility]2014-09-22 14:26:00 Test Item Value Reference Range Interpretation Comments Sodium Lvl (test code = Sodium Lvl) 136 135-145 [facility]2014-09-22 14:26:00 Test Item Value Reference Range Interpretation Comments Calcium Lvl (test code = Calcium Lvl) 9.7 8.5-10.5 [facility]ennialWlxkjirYVHSSVKWPL5175-05-27 14:26:00 Test Item Value Reference Range Interpretation Comments MCV (test code = MCV) 101.6 80.0-98.0 [facility] CentennialZbwzcbxROXBBYLXUF7520-55-46 14:26:00 Test Item Value Reference Range Interpretation Comments MCH (test code = MCH) 35.5 pg 27.0-31.0 [facility] CentennialBavcqalDOPNJCGLNK1404-87-54 14:26:00 Test Item Value Reference Range Interpretation Comments Hgb (test code = Hgb) 13.3 12.0-16.0 [facility] CentennialMzumafkKZNYDBLTPP3403-90-37 14:26:00 Test Item Value Reference Range Interpretation Comments Hct (test code = Hct) 37.9 36.0-48.0 [facility] CentennialZwnnsiwETDADEYRED1576-06-43 14:26:00 Test Item Value Reference Range Interpretation Comments RBC (test code = RBC) 3.73 4.20-5.40 [facility] CentennialLdqrutqPTQSSAMJPE0971-23-83 14:26:00 Test Item Value Reference Range Interpretation Comments WBC (test code = WBC) 6.1 3.7-10.4 [facility] CentennialTzielptFWWNQLZBTQ5773-56-68 14:26:00 Test Item Value Reference Range Interpretation Comments MPV (test code = MPV) 8.0 7.4-10.4 [facility] CentennialDlqvtpqHUXXFELLEU3815-00-42 14:26:00 Test Item Value Reference Range Interpretation Comments RDW (test code = RDW) 17.2 11.5-14.5 [facility] CentennialWoffyhjMUVIPABBQF4682-51-29 14:26:00 Test Item Value Reference Range Interpretation Comments Platelet (test code = Platelet) 223 133-450 [facility] CentennialWgnpamsFYFDAHFBSU1466-72-04 14:26:00 Test Item Value Reference Range Interpretation Comments MCHC (test code = MCHC) 35.0 32.0-36.0 [facility] CentennialMefpcgrBRUPEZFMBN4709-75-51 14:26:00 Test Item Value Reference Range Interpretation Comments INR (test code = INR) 0.93 0.85-1.17 [facility] CentennialRtljnupMOBEGIPUKP9176-92-61 14:26:00 Test Item Value Reference Range Interpretation Comments PT (test code = PT) 12.4 s 12.0-14.7 [facility]2014-09-22 14:26:00 Test Item Value Reference Range Interpretation Comments BUN (test code = BUN) 8 7-22 [facility]2014-09-22 14:26:00 Test Item Value Reference Range Interpretation Comments Glucose Lvl (test code = Glucose Lvl) 91 70-99 [facility]2014-09-22 14:26:00 Test Item Value Reference Range Interpretation Comments CO2 (test code = CO2) 29 24-32 [facility]2014-09-22 14:26:00 Test Item Value Reference Range Interpretation Comments AGAP (test code = AGAP) 6.7 10.0-20.0 [facility]2014-09-22 14:26:00 Test Item Value Reference Range Interpretation Comments eGFR (test code = eGFR) 86 [facility]2014-09-22 14:26:00 Test Item Value Reference Range Interpretation Comments Creatinine Lvl (test code = Creatinine 0.8 0.5-1.4 Lvl) [facility]2014-09-22 14:26:00 Test Item Value Reference Range Interpretation Comments Chloride Lvl (test code = Chloride Lvl) 104 95-109 [facility]2014-09-22 14:26:00 Test Item Value Reference Range Interpretation Comments Potassium Lvl (test code = Potassium 3.7 3.5-5.1 Lvl) [facility]2014-09-22 14:26:00 Test Item Value Reference Range Interpretation Comments Sodium Lvl (test code = Sodium Lvl) 136 135-145 [facility]2014-09-22 14:26:00 Test Item Value Reference Range Interpretation Comments Calcium Lvl (test code = Calcium Lvl) 9.7 8.5-10.5 [facility] CentennialEpbczjrGNHKEKOIBW2368-66-19 14:26:00 Test Item Value Reference Range Interpretation Comments MCV (test code = MCV) 101.6 80.0-98.0 [facility] CentennialUlbcrvcSYNAOKHJMI4963-05-92 14:26:00 Test Item Value Reference Range Interpretation Comments MCH (test code = MCH) 35.5 pg 27.0-31.0 [facility] CentennialDipxldmDDFBOWODLW3087-43-44 14:26:00 Test Item Value Reference Range Interpretation Comments Hgb (test code = Hgb) 13.3 12.0-16.0 [facility] CentennialMbntedxXYNTSAWXJH2711-96-35 14:26:00 Test Item Value Reference Range Interpretation Comments Hct (test code = Hct) 37.9 36.0-48.0 [place] 010214-09-22 14:26:00 Test Item Value Reference Range Interpretation Comments RBC (test code = RBC) 3.73 4.20-5.40 [facility] CentennialXnowkzdIKULXIWZIY2942-75-16 14:26:00 Test Item Value Reference Range Interpretation Comments WBC (test code = WBC) 6.1 3.7-10.4 [facility] CentennialSrdbpphDHHXVSGJCJ7050-65-31 14:26:00 Test Item Value Reference Range Interpretation Comments MPV (test code = MPV) 8.0 7.4-10.4 [facility] CentennialWtitggoLWIJSMMBBY4120-95-47 14:26:00 Test Item Value Reference Range Interpretation Comments RDW (test code = RDW) 17.2 11.5-14.5 [facility] CentennialZnrgqeoPILUEKHLLN8473-99-04 14:26:00 Test Item Value Reference Range Interpretation Comments Platelet (test code = Platelet) 223 133-450 [facility] CentennialVzcusaoYLSJKGHTXG8247-10-88 14:26:00 Test Item Value Reference Range Interpretation Comments MCHC (test code = MCHC) 35.0 32.0-36.0 [facility] CentennialGkassjfHLJKNDOGNP2492-20-27 14:26:00 Test Item Value Reference Range Interpretation Comments INR (test code = INR) 0.93 0.85-1.17 [facility] CentennialLpyjyphUGTQALVZUX7581-95-42 14:26:00 Test Item Value Reference Range Interpretation Comments PT (test code = PT) 12.4 s 12.0-14.7 [facility]2014-09-22 14:26:00 Test Item Value Reference Range Interpretation Comments BUN (test code = BUN) 8 7-22 [facility]2014-09-22 14:26:00 Test Item Value Reference Range Interpretation Comments Glucose Lvl (test code = Glucose Lvl) 91 70-99 [facility]2014-09-22 14:26:00 Test Item Value Reference Range Interpretation Comments CO2 (test code = CO2) 29 24-32 [facility]2014-09-22 14:26:00 Test Item Value Reference Range Interpretation Comments AGAP (test code = AGAP) 6.7 10.0-20.0 [facility]2014-09-22 14:26:00 Test Item Value Reference Range Interpretation Comments eGFR (test code = eGFR) 86 [facility]2014-09-22 14:26:00 Test Item Value Reference Range Interpretation Comments Creatinine Lvl (test code = Creatinine 0.8 0.5-1.4 Lvl) [facility]2014-09-22 14:26:00 Test Item Value Reference Range Interpretation Comments Chloride Lvl (test code = Chloride Lvl) 104 95-109 [facility]2014-09-22 14:26:00 Test Item Value Reference Range Interpretation Comments Potassium Lvl (test code = Potassium 3.7 3.5-5.1 Lvl) [facility]2014-09-22 14:26:00 Test Item Value Reference Range Interpretation Comments Sodium Lvl (test code = Sodium Lvl) 136 135-145 [facility]2014-09-22 14:26:00 Test Item Value Reference Range Interpretation Comments Calcium Lvl (test code = Calcium Lvl) 9.7 8.5-10.5 [facility] CentennialFvxretkJZAIEKNEKG6065-20-95 14:26:00 Test Item Value Reference Range Interpretation Comments MCV (test code = MCV) 101.6 80.0-98.0 [facility] CentennialBwaoyuoIHVNOVNSDS8321-52-74 14:26:00 Test Item Value Reference Range Interpretation Comments MCH (test code = MCH) 35.5 pg 27.0-31.0 [facility] CentennialGuerqjtIEFJZXWWJG8697-50-66 14:26:00 Test Item Value Reference Range Interpretation Comments Hgb (test code = Hgb) 13.3 12.0-16.0 [facility] CentennialLyvbxzoEFXJWQXETN0558-50-60 14:26:00 Test Item Value Reference Range Interpretation Comments Hct (test code = Hct) 37.9 36.0-48.0 [facility] [facility]ennialBrafzhrCSUHONJESC6112-93-32 14:26:00 Test Item Value Reference Range Interpretation Comments RBC (test code = RBC) 3.73 4.20-5.40 [facility]ennialNtmihvdNYEVTBEWJQ0388-21-02 14:26:00 Test Item Value Reference Range Interpretation Comments WBC (test code = WBC) 6.1 3.7-10.4 [facility] CentennialXytnqjhYNMTKXDEBW0615-30-58 14:26:00 Test Item Value Reference Range Interpretation Comments MPV (test code = MPV) 8.0 7.4-10.4 [facility] CentennialXyapaqyKPGJEQJSPD8194-73-75 14:26:00 Test Item Value Reference Range Interpretation Comments RDW (test code = RDW) 17.2 11.5-14.5 [facility]ennialGdfuggwNHRKTDOQPP4026-02-37 14:26:00 Test Item Value Reference Range Interpretation Comments Platelet (test code = Platelet) 223 133-450 [facility] CentennialRlllqiqDTUFDGWAEZ2462-66-50 14:26:00 Test Item Value Reference Range Interpretation Comments MCHC (test code = MCHC) 35.0 32.0-36.0 [facility] CentennialUvuuypgUYEBXELTWH7820-41-92 14:26:00 Test Item Value Reference Range Interpretation Comments INR (test code = INR) 0.93 0.85-1.17 [facility] CentennialZwmjnpjFVHRAGGDMI3138-08-14 14:26:00 Test Item Value Reference Range Interpretation Comments PT (test code = PT) 12.4 s 12.0-14.7 [facility]2014-09-22 14:26:00 Test Item Value Reference Range Interpretation Comments BUN (test code = BUN) 8 7- [facility]2014-09-22 14:26:00 Test Item Value Reference Range Interpretation Comments Glucose Lvl (test code = Glucose Lvl) 91 70-99 [facility]2014-09-22 14:26:00 Test Item Value Reference Range Interpretation Comments CO2 (test code = CO2) 29 24-32 [facility]2014-09-22 14:26:00 Test Item Value Reference Range Interpretation Comments AGAP (test code = AGAP) 6.7 10.0-20.0 [facility]2014-09-22 14:26:00 Test Item Value Reference Range Interpretation Comments eGFR (test code = eGFR) 86 [facility]2014-09-22 14:26:00 Test Item Value Reference Range Interpretation Comments Creatinine Lvl (test code = Creatinine 0.8 0.5-1.4 Lvl) [facility]2014-09-22 14:26:00 Test Item Value Reference Range Interpretation Comments Chloride Lvl (test code = Chloride Lvl) 104 95-109 [facility]2014-09-22 14:26:00 Test Item Value Reference Range Interpretation Comments Potassium Lvl (test code = Potassium 3.7 3.5-5.1 Lvl) [facility]2014-09-22 14:26:00 Test Item Value Reference Range Interpretation Comments Sodium Lvl (test code = Sodium Lvl) 136 135-145 [facility]2014-09-22 14:26:00 Test Item Value Reference Range Interpretation Comments Calcium Lvl (test code = Calcium Lvl) 9.7 8.5-10.5 [facility]ennialEhemjwjJBFWXXIUOG6958-35-18 14:26:00 Test Item Value Reference Range Interpretation Comments MCV (test code = MCV) 101.6 80.0-98.0 [facility] CentennialFqkjmzvDNLJKIGXZX4563-78-94 14:26:00 Test Item Value Reference Range Interpretation Comments MCH (test code = MCH) 35.5 pg 27.0-31.0 [facility] CentennialTtpbexvNDRNUPCASQ0354-18-62 14:26:00 Test Item Value Reference Range Interpretation Comments Hgb (test code = Hgb) 13.3 12.0-16.0 [facility]ennialCpmffqoEMQKYFSBAI6288-57-53 14:26:00 Test Item Value Reference Range Interpretation Comments Hct (test code = Hct) 37.9 36.0-48.0 [facility] CentennialDayivtvHVJDXJOTQU5850-98-07 14:26:00 Test Item Value Reference Range Interpretation Comments RBC (test code = RBC) 3.73 4.20-5.40 [facility] CentennialFdirnokFVMVKOYSXS8145-86-31 14:26:00 Test Item Value Reference Range Interpretation Comments WBC (test code = WBC) 6.1 3.7-10.4 [facility] CentennialLngvxqsAUCITMWYEW8304-73-51 14:26:00 Test Item Value Reference Range Interpretation Comments MPV (test code = MPV) 8.0 7.4-10.4 [facility]ennialPgkrddoOVZHXXJQNP7062-16-74 14:26:00 Test Item Value Reference Range Interpretation Comments RDW (test code = RDW) 17.2 11.5-14.5 [facility] CentennialDbcoanuVFTPNFVOWK9847-60-57 14:26:00 Test Item Value Reference Range Interpretation Comments Platelet (test code = Platelet) 223 133-450 [facility] CentennialGbnxemuTEREEHJYZF9306-83-35 14:26:00 Test Item Value Reference Range Interpretation Comments MCHC (test code = MCHC) 35.0 32.0-36.0 [facility]ennialSvzgxbkZABOAQTFRB8824-76-79 14:26:00 Test Item Value Reference Range Interpretation Comments INR (test code = INR) 0.93 0.85-1.17 [facility]ennialPzptpyoHXYVUWAZVW3221-51-21 14:26:00 Test Item Value Reference Range Interpretation Comments PT (test code = PT) 12.4 s 12.0-14.7 [facility]2014-09-22 14:26:00 Test Item Value Reference Range Interpretation Comments BUN (test code = BUN) 8 - [facility]2014-09-22 14:26:00 Test Item Value Reference Range Interpretation Comments Glucose Lvl (test code = Glucose Lvl) 91 70-99 [facility]2014-09-22 14:26:00 Test Item Value Reference Range Interpretation Comments CO2 (test code = CO2) 29 24-32 [facility]2014-09-22 14:26:00 Test Item Value Reference Range Interpretation Comments AGAP (test code = AGAP) 6.7 10.0-20.0 [facility]2014-09-22 14:26:00 Test Item Value Reference Range Interpretation Comments eGFR (test code = eGFR) 86 [facility]2014-09-22 14:26:00 Test Item Value Reference Range Interpretation Comments Creatinine Lvl (test code = Creatinine 0.8 0.5-1.4 Lvl) [facility]2014-09-22 14:26:00 Test Item Value Reference Range Interpretation Comments Chloride Lvl (test code = Chloride Lvl) 104 95-109 [facility]2014-09-22 14:26:00 Test Item Value Reference Range Interpretation Comments Potassium Lvl (test code = Potassium 3.7 3.5-5.1 Lvl) [facility]2014-09-22 14:26:00 Test Item Value Reference Range Interpretation Comments Sodium Lvl (test code = Sodium Lvl) 136 135-145 [facility]2014-09-22 14:26:00 Test Item Value Reference Range Interpretation Comments Calcium Lvl (test code = Calcium Lvl) 9.7 8.5-10.5 [facility]ennialOhajfmvCKPDJGVUMB2602-72-85 14:26:00 Test Item Value Reference Range Interpretation Comments MCV (test code = MCV) 101.6 80.0-98.0 [facility] CentennialDvqsylaLWQAIMQLME4225-83-37 14:26:00 Test Item Value Reference Range Interpretation Comments MCH (test code = MCH) 35.5 pg 27.0-31.0 [place] 010214-09-22 14:26:00 Test Item Value Reference Range Interpretation Comments Hgb (test code = Hgb) 13.3 12.0-16.0 [facility]ennialVvlrfyoXRGESLRKJT9453-66-60 14:26:00 Test Item Value Reference Range Interpretation Comments Hct (test code = Hct) 37.9 36.0-48.0 [facility] CentennialLivswtoXVGVHFIISG6941-83-03 14:26:00 Test Item Value Reference Range Interpretation Comments RBC (test code = RBC) 3.73 4.20-5.40 [facility] CentennialInzsnwiBJOKLGTJUP6526-86-98 14:26:00 Test Item Value Reference Range Interpretation Comments WBC (test code = WBC) 6.1 3.7-10.4 [facility] CentennialFtcquoqLJRWIWRFLX1565-44-25 14:26:00 Test Item Value Reference Range Interpretation Comments MPV (test code = MPV) 8.0 7.4-10.4 [facility] CentennialVqvwmclTGXENOFWXH0635-41-44 14:26:00 Test Item Value Reference Range Interpretation Comments RDW (test code = RDW) 17.2 11.5-14.5 [facility]ennialAmfvjkbQXVFDVSJJB8975-96-10 14:26:00 Test Item Value Reference Range Interpretation Comments Platelet (test code = Platelet) 223 133-450 [facility] CentennialQvzbgxrULDPBYTGDV6241-57-82 14:26:00 Test Item Value Reference Range Interpretation Comments MCHC (test code = MCHC) 35.0 32.0-36.0 [facility] CentennialIlebezwXQWCNBFMLW7779-77-19 14:26:00 Test Item Value Reference Range Interpretation Comments INR (test code = INR) 0.93 0.85-1.17 [facility]ennialEyatltsALMOMAWXDP9321-84-80 14:26:00 Test Item Value Reference Range Interpretation Comments PT (test code = PT) 12.4 s 12.0-14.7 [facility]2014-09-22 14:26:00 Test Item Value Reference Range Interpretation Comments BUN (test code = BUN) 8 7- [facility]2014-09-22 14:26:00 Test Item Value Reference Range Interpretation Comments Glucose Lvl (test code = Glucose Lvl) 91 70-99 [facility]2014-09-22 14:26:00 Test Item Value Reference Range Interpretation Comments CO2 (test code = CO2) 29 24-32 [facility]2014-09-22 14:26:00 Test Item Value Reference Range Interpretation Comments AGAP (test code = AGAP) 6.7 10.0-20.0 [facility]2014-09-22 14:26:00 Test Item Value Reference Range Interpretation Comments eGFR (test code = eGFR) 86 [facility]2014-09-22 14:26:00 Test Item Value Reference Range Interpretation Comments Creatinine Lvl (test code = Creatinine 0.8 0.5-1.4 Lvl) [facility]2014-09-22 14:26:00 Test Item Value Reference Range Interpretation Comments Chloride Lvl (test code = Chloride Lvl) 104 95-109 [facility]2014-09-22 14:26:00 Test Item Value Reference Range Interpretation Comments Potassium Lvl (test code = Potassium 3.7 3.5-5.1 Lvl) [facility]2014-09-22 14:26:00 Test Item Value Reference Range Interpretation Comments Sodium Lvl (test code = Sodium Lvl) 136 135-145 [facility]2014-09-22 14:26:00 Test Item Value Reference Range Interpretation Comments Calcium Lvl (test code = Calcium Lvl) 9.7 8.5-10.5 [facility]ennialHgjoxowSDRNFZDRHW8878-34-04 14:26:00 Test Item Value Reference Range Interpretation Comments MCV (test code = MCV) 101.6 80.0-98.0 [facility]ennialRgxyaxmTXJFAGIBMI1700-13-10 14:26:00 Test Item Value Reference Range Interpretation Comments MCH (test code = MCH) 35.5 pg 27.0-31.0 [facility]ennialMcsonvoXHBXVKDOTC8098-12-72 14:26:00 Test Item Value Reference Range Interpretation Comments Hgb (test code = Hgb) 13.3 12.0-16.0 [facility] CentennialVrdguxiLTHRMXFHXM9887-03-11 14:26:00 Test Item Value Reference Range Interpretation Comments Hct (test code = Hct) 37.9 36.0-48.0 [facility]ennialBybxjgfZPOQNZZVAK7117-20-99 14:26:00 Test Item Value Reference Range Interpretation Comments RBC (test code = RBC) 3.73 4.20-5.40 [place] 010214-09-22 14:26:00 Test Item Value Reference Range Interpretation Comments WBC (test code = WBC) 6.1 3.7-10.4 [facility] CentennialDchbamvEILMAIWSKZ7883-14-48 14:26:00 Test Item Value Reference Range Interpretation Comments MPV (test code = MPV) 8.0 7.4-10.4 [facility]ennialUwrcridDYKFRPCAYN1786-83-61 14:26:00 Test Item Value Reference Range Interpretation Comments RDW (test code = RDW) 17.2 11.5-14.5 [facility] CentennialOvocztaONCBCIYHNS2409-49-84 14:26:00 Test Item Value Reference Range Interpretation Comments Platelet (test code = Platelet) 223 133-450 [facility] CentennialSiplpgmHOLQHRFZBX7435-95-47 14:26:00 Test Item Value Reference Range Interpretation Comments MCHC (test code = MCHC) 35.0 32.0-36.0 [facility]ennialKfglyrhTHLIVCMWPB0008-33-47 14:26:00 Test Item Value Reference Range Interpretation Comments INR (test code = INR) 0.93 0.85-1.17 [facility] CentennialCanvavyBRVVRYBNTR9960-88-27 14:26:00 Test Item Value Reference Range Interpretation Comments PT (test code = PT) 12.4 s 12.0-14.7 [facility]2014-09-22 14:26:00 Test Item Value Reference Range Interpretation Comments BUN (test code = BUN) 8 7-22 [facility]2014-09-22 14:26:00 Test Item Value Reference Range Interpretation Comments Glucose Lvl (test code = Glucose Lvl) 91 70-99 [facility]2014-09-22 14:26:00 Test Item Value Reference Range Interpretation Comments CO2 (test code = CO2) 29 24-32 [facility]2014-09-22 14:26:00 Test Item Value Reference Range Interpretation Comments AGAP (test code = AGAP) 6.7 10.0-20.0 [facility]2014-09-22 14:26:00 Test Item Value Reference Range Interpretation Comments eGFR (test code = eGFR) 86 [facility]2014-09-22 14:26:00 Test Item Value Reference Range Interpretation Comments Creatinine Lvl (test code = Creatinine 0.8 0.5-1.4 Lvl) [facility]2014-09-22 14:26:00 Test Item Value Reference Range Interpretation Comments Chloride Lvl (test code = Chloride Lvl) 104 95-109 [facility]2014-09-22 14:26:00 Test Item Value Reference Range Interpretation Comments Potassium Lvl (test code = Potassium 3.7 3.5-5.1 Lvl) [facility]2014-09-22 14:26:00 Test Item Value Reference Range Interpretation Comments Sodium Lvl (test code = Sodium Lvl) 136 135-145 [facility]2014-09-22 14:26:00 Test Item Value Reference Range Interpretation Comments Calcium Lvl (test code = Calcium Lvl) 9.7 8.5-10.5 [facility]ennialHkxalzvEYVILYHJVU9762-69-91 14:26:00 Test Item Value Reference Range Interpretation Comments MCV (test code = MCV) 101.6 80.0-98.0 [facility] CentennialVhwpeivAAVBHXDNWQ3641-82-19 14:26:00 Test Item Value Reference Range Interpretation Comments MCH (test code = MCH) 35.5 pg 27.0-31.0 [facility] CentennialLrgmwotRNJPUPXXPF4716-89-49 14:26:00 Test Item Value Reference Range Interpretation Comments Hgb (test code = Hgb) 13.3 12.0-16.0 [facility]ennialPkjjhhuQMSVKBPPFM3810-13-73 14:26:00 Test Item Value Reference Range Interpretation Comments Hct (test code = Hct) 37.9 36.0-48.0 [facility]ennialGcpjhppSCQTUPDYRE1566-10-29 14:26:00 Test Item Value Reference Range Interpretation Comments RBC (test code = RBC) 3.73 4.20-5.40 [facility] CentennialIvlkicoIRDYREVEJA4279-55-96 14:26:00 Test Item Value Reference Range Interpretation Comments WBC (test code = WBC) 6.1 3.7-10.4 [facility] CentennialFqaloexKQOXEQPVXR1695-38-77 14:26:00 Test Item Value Reference Range Interpretation Comments MPV (test code = MPV) 8.0 7.4-10.4 [facility] CentennialKetpjenRNCAYVIPKZ4506-79-05 14:26:00 Test Item Value Reference Range Interpretation Comments RDW (test code = RDW) 17.2 11.5-14.5 [facility] CentennialKbjntlfKANTWGCJQX5778-12-66 14:26:00 Test Item Value Reference Range Interpretation Comments Platelet (test code = Platelet) 223 133-450 [facility] CentennialTcsfmhyEHELKRNLRF5238-40-02 14:26:00 Test Item Value Reference Range Interpretation Comments MCHC (test code = MCHC) 35.0 32.0-36.0 [facility] CentennialRzrmecdVXZZRTABMN4170-77-35 14:26:00 Test Item Value Reference Range Interpretation Comments INR (test code = INR) 0.93 0.85-1.17 [facility] CentennialQcetsjhZYWKKYDXPL8137-45-87 14:26:00 Test Item Value Reference Range Interpretation Comments PT (test code = PT) 12.4 s 12.0-14.7 [facility]2014-09-22 14:26:00 Test Item Value Reference Range Interpretation Comments BUN (test code = BUN) 8 - [facility]2014-09-22 14:26:00 Test Item Value Reference Range Interpretation Comments Glucose Lvl (test code = Glucose Lvl) 91 70-99 [facility]2014-09-22 14:26:00 Test Item Value Reference Range Interpretation Comments CO2 (test code = CO2) 29 24-32 [facility]2014-09-22 14:26:00 Test Item Value Reference Range Interpretation Comments AGAP (test code = AGAP) 6.7 10.0-20.0 [facility]2014-09-22 14:26:00 Test Item Value Reference Range Interpretation Comments eGFR (test code = eGFR) 86 [facility]2014-09-22 14:26:00 Test Item Value Reference Range Interpretation Comments Creatinine Lvl (test code = Creatinine 0.8 0.5-1.4 Lvl) [facility]2014-09-22 14:26:00 Test Item Value Reference Range Interpretation Comments Chloride Lvl (test code = Chloride Lvl) 104 95-109 [facility]2014-09-22 14:26:00 Test Item Value Reference Range Interpretation Comments Potassium Lvl (test code = Potassium 3.7 3.5-5.1 Lvl) [facility]2014-09-22 14:26:00 Test Item Value Reference Range Interpretation Comments Sodium Lvl (test code = Sodium Lvl) 136 135-145 [facility]2014-09-22 14:26:00 Test Item Value Reference Range Interpretation Comments Calcium Lvl (test code = Calcium Lvl) 9.7 8.5-10.5 [facility]ennialMwswomyBUKPFVTKNB9987-79-84 14:26:00 Test Item Value Reference Range Interpretation Comments MCV (test code = MCV) 101.6 80.0-98.0 [facility] CentennialBmkdnwwVNVDQQVELQ3195-98-46 14:26:00 Test Item Value Reference Range Interpretation Comments MCH (test code = MCH) 35.5 pg 27.0-31.0 [facility] CentennialPxsurfeENPIERJDEU9583-98-31 14:26:00 Test Item Value Reference Range Interpretation Comments Hgb (test code = Hgb) 13.3 12.0-16.0 [facility] CentennialJabldxbVQWUAVFCAO1445-69-55 14:26:00 Test Item Value Reference Range Interpretation Comments Hct (test code = Hct) 37.9 36.0-48.0 [facility] CentennialQqodyarPDIGWTEHMI7569-17-14 14:26:00 Test Item Value Reference Range Interpretation Comments RBC (test code = RBC) 3.73 4.20-5.40 [facility] CentennialMksxbnsPRWSJACEOL5617-04-74 14:26:00 Test Item Value Reference Range Interpretation Comments WBC (test code = WBC) 6.1 3.7-10.4 [facility] CentennialWzwfvukPKOUJYJOWH4252-58-96 14:26:00 Test Item Value Reference Range Interpretation Comments MPV (test code = MPV) 8.0 7.4-10.4 [facility] CentennialNjlvdduINTHKLOLEI8312-33-11 14:26:00 Test Item Value Reference Range Interpretation Comments RDW (test code = RDW) 17.2 11.5-14.5 [facility] CentennialWcbhundARUZIYCMFS2254-83-99 14:26:00 Test Item Value Reference Range Interpretation Comments Platelet (test code = Platelet) 223 133-450 [facility] CentennialRgdeyjxKILBFEYWNK0459-22-63 14:26:00 Test Item Value Reference Range Interpretation Comments MCHC (test code = MCHC) 35.0 32.0-36.0 [facility] CentennialQcxboneEOMGAQWVGN3059-79-88 14:26:00 Test Item Value Reference Range Interpretation Comments INR (test code = INR) 0.93 0.85-1.17 [facility]ennialKepwqkfWNTSLRZPZV7679-33-06 14:26:00 Test Item Value Reference Range Interpretation Comments PT (test code = PT) 12.4 s 12.0-14.7 [facility]2014-09-22 14:26:00 Test Item Value Reference Range Interpretation Comments BUN (test code = BUN) 8 7- [facility]2014-09-22 14:26:00 Test Item Value Reference Range Interpretation Comments Glucose Lvl (test code = Glucose Lvl) 91 70-99 [facility]2014-09-22 14:26:00 Test Item Value Reference Range Interpretation Comments CO2 (test code = CO2) 29 24-32 [facility]2014-09-22 14:26:00 Test Item Value Reference Range Interpretation Comments AGAP (test code = AGAP) 6.7 10.0-20.0 [facility]2014-09-22 14:26:00 Test Item Value Reference Range Interpretation Comments eGFR (test code = eGFR) 86 [facility]2014-09-22 14:26:00 Test Item Value Reference Range Interpretation Comments Creatinine Lvl (test code = Creatinine 0.8 0.5-1.4 Lvl) [facility]2014-09-22 14:26:00 Test Item Value Reference Range Interpretation Comments Chloride Lvl (test code = Chloride Lvl) 104 95-109 [facility]2014-09-22 14:26:00 Test Item Value Reference Range Interpretation Comments Potassium Lvl (test code = Potassium 3.7 3.5-5.1 Lvl) [facility]2014-09-22 14:26:00 Test Item Value Reference Range Interpretation Comments Sodium Lvl (test code = Sodium Lvl) 136 135-145 [facility]2014-09-22 14:26:00 Test Item Value Reference Range Interpretation Comments Calcium Lvl (test code = Calcium Lvl) 9.7 8.5-10.5 [facility]ennialMydubcuSDUUASGUNJ3802-83-92 14:26:00 Test Item Value Reference Range Interpretation Comments MCV (test code = MCV) 101.6 80.0-98.0 [facility]ennialYowwrntDPOOBAXAST1960-58-14 14:26:00 Test Item Value Reference Range Interpretation Comments MCH (test code = MCH) 35.5 pg 27.0-31.0 [facility]ennialKyxojfcLQJXCFYEIO0881-00-54 14:26:00 Test Item Value Reference Range Interpretation Comments Hgb (test code = Hgb) 13.3 12.0-16.0 [facility] CentennialSrpgzreKTGWJODQLP8163-47-93 14:26:00 Test Item Value Reference Range Interpretation Comments Hct (test code = Hct) 37.9 36.0-48.0 [facility] CentennialHmpibxpACNRXQHQDZ3979-43-63 14:26:00 Test Item Value Reference Range Interpretation Comments RBC (test code = RBC) 3.73 4.20-5.40 [facility] CentennialHjswwmbFLCXIBNHTG7555-92-27 14:26:00 Test Item Value Reference Range Interpretation Comments WBC (test code = WBC) 6.1 3.7-10.4 [facility] CentennialYqtwcrgSAPRLHZILL3449-92-98 14:26:00 Test Item Value Reference Range Interpretation Comments MPV (test code = MPV) 8.0 7.4-10.4 [facility] CentennialWfqzjuxUHTOKYEKXM6371-21-48 14:26:00 Test Item Value Reference Range Interpretation Comments RDW (test code = RDW) 17.2 11.5-14.5 [facility] CentennialNjngurqTZZGWXTVDG5601-59-27 14:26:00 Test Item Value Reference Range Interpretation Comments Platelet (test code = Platelet) 223 133-450 [facility] CentennialNvxnimgVGBCCWQUFK5723-61-93 14:26:00 Test Item Value Reference Range Interpretation Comments MCHC (test code = MCHC) 35.0 32.0-36.0 [facility] CentennialTvlyagrQREIYNBBQA7879-61-70 14:26:00 Test Item Value Reference Range Interpretation Comments INR (test code = INR) 0.93 0.85-1.17 [facility] CentennialWfwhayaGDGKKKWKED5368-63-70 14:26:00 Test Item Value Reference Range Interpretation Comments PT (test code = PT) 12.4 s 12.0-14.7 [facility]2014-09-22 14:26:00 Test Item Value Reference Range Interpretation Comments BUN (test code = BUN) 8 7-22 [facility]2014-09-22 14:26:00 Test Item Value Reference Range Interpretation Comments Glucose Lvl (test code = Glucose Lvl) 91 70-99 [facility]2014-09-22 14:26:00 Test Item Value Reference Range Interpretation Comments CO2 (test code = CO2) 29 24-32 [facility]2014-09-22 14:26:00 Test Item Value Reference Range Interpretation Comments AGAP (test code = AGAP) 6.7 10.0-20.0 [facility]2014-09-22 14:26:00 Test Item Value Reference Range Interpretation Comments eGFR (test code = eGFR) 86 [facility]2014-09-22 14:26:00 Test Item Value Reference Range Interpretation Comments Creatinine Lvl (test code = Creatinine 0.8 0.5-1.4 Lvl) [facility]2014-09-22 14:26:00 Test Item Value Reference Range Interpretation Comments Chloride Lvl (test code = Chloride Lvl) 104 95-109 [facility]2014-09-22 14:26:00 Test Item Value Reference Range Interpretation Comments Potassium Lvl (test code = Potassium 3.7 3.5-5.1 Lvl) [facility]2014-09-22 14:26:00 Test Item Value Reference Range Interpretation Comments Sodium Lvl (test code = Sodium Lvl) 136 135-145 [facility]2014-09-22 14:26:00 Test Item Value Reference Range Interpretation Comments Calcium Lvl (test code = Calcium Lvl) 9.7 8.5-10.5 [facility]ennialFeoiczjAGIJHAHQEM5674-54-01 14:26:00 Test Item Value Reference Range Interpretation Comments MCV (test code = MCV) 101.6 80.0-98.0 [facility] CentennialUmfqikqPKTZVTPENZ7103-59-33 14:26:00 Test Item Value Reference Range Interpretation Comments MCH (test code = MCH) 35.5 pg 27.0-31.0 [facility] CentennialOpukgqyRILDHXMABC3627-08-90 14:26:00 Test Item Value Reference Range Interpretation Comments Hgb (test code = Hgb) 13.3 12.0-16.0 [facility] CentennialDiwpvdiPDVJGPSANA7650-01-51 14:26:00 Test Item Value Reference Range Interpretation Comments Hct (test code = Hct) 37.9 36.0-48.0 [facility] CentennialHyiwxdtTUILDMKAIC5250-47-17 14:26:00 Test Item Value Reference Range Interpretation Comments RBC (test code = RBC) 3.73 4.20-5.40 [place] 010214-09-22 14:26:00 Test Item Value Reference Range Interpretation Comments WBC (test code = WBC) 6.1 3.7-10.4 [facility] CentennialOxzypwcBSSUXVPECM9660-84-94 14:26:00 Test Item Value Reference Range Interpretation Comments MPV (test code = MPV) 8.0 7.4-10.4 [facility] CentennialDybxbagLJAEOGKUUY7686-20-69 14:26:00 Test Item Value Reference Range Interpretation Comments RDW (test code = RDW) 17.2 11.5-14.5 [facility] CentennialBujhzgiXAPFRKPHZH4923-58-01 14:26:00 Test Item Value Reference Range Interpretation Comments Platelet (test code = Platelet) 223 133-450 [facility] CentennialUoaritcQAXOLKIDHF1237-16-53 14:26:00 Test Item Value Reference Range Interpretation Comments MCHC (test code = MCHC) 35.0 32.0-36.0 [facility] CentennialUewcnlaPCOAMMDWCM2152-09-42 14:26:00 Test Item Value Reference Range Interpretation Comments INR (test code = INR) 0.93 0.85-1.17 [facility] CentennialHflpmpuFDBDDILUVD2710-58-03 14:26:00 Test Item Value Reference Range Interpretation Comments PT (test code = PT) 12.4 s 12.0-14.7 [facility]2014-09-22 14:26:00 Test Item Value Reference Range Interpretation Comments BUN (test code = BUN) 8 7-22 [facility]2014-09-22 14:26:00 Test Item Value Reference Range Interpretation Comments Glucose Lvl (test code = Glucose Lvl) 91 70-99 [facility]2014-09-22 14:26:00 Test Item Value Reference Range Interpretation Comments CO2 (test code = CO2) 29 24-32 [facility]2014-09-22 14:26:00 Test Item Value Reference Range Interpretation Comments AGAP (test code = AGAP) 6.7 10.0-20.0 [facility]2014-09-22 14:26:00 Test Item Value Reference Range Interpretation Comments eGFR (test code = eGFR) 86 [facility]2014-09-22 14:26:00 Test Item Value Reference Range Interpretation Comments Creatinine Lvl (test code = Creatinine 0.8 0.5-1.4 Lvl) [facility]2014-09-22 14:26:00 Test Item Value Reference Range Interpretation Comments Chloride Lvl (test code = Chloride Lvl) 104 95-109 [facility]2014-09-22 14:26:00 Test Item Value Reference Range Interpretation Comments Potassium Lvl (test code = Potassium 3.7 3.5-5.1 Lvl) [facility]2014-09-22 14:26:00 Test Item Value Reference Range Interpretation Comments Sodium Lvl (test code = Sodium Lvl) 136 135-145 [facility]2014-09-22 14:26:00 Test Item Value Reference Range Interpretation Comments Calcium Lvl (test code = Calcium Lvl) 9.7 8.5-10.5 [facility] CentennialQpymovpUAOCPUQWWA0993-17-79 14:26:00 Test Item Value Reference Range Interpretation Comments MCV (test code = MCV) 101.6 80.0-98.0 [facility] CentennialWtoybjoUPTPKNBWVM5465-45-25 14:26:00 Test Item Value Reference Range Interpretation Comments MCH (test code = MCH) 35.5 pg 27.0-31.0 [facility] CentennialIejqhxhHPKZUXZZZO7508-65-79 14:26:00 Test Item Value Reference Range Interpretation Comments Hgb (test code = Hgb) 13.3 12.0-16.0 [facility] CentennialXtmtppdLSULVNZZYH4529-66-01 14:26:00 Test Item Value Reference Range Interpretation Comments Hct (test code = Hct) 37.9 36.0-48.0 [facility] CentennialNidjkwcAQBHJCFPSY8243-86-48 14:26:00 Test Item Value Reference Range Interpretation Comments RBC (test code = RBC) 3.73 4.20-5.40 [facility] CentennialDxzgshxBLSBOPUQAD5582-73-46 14:26:00 Test Item Value Reference Range Interpretation Comments WBC (test code = WBC) 6.1 3.7-10.4 [facility] CentennialCeyyvhnZCHYJDSBMO0970-53-42 14:26:00 Test Item Value Reference Range Interpretation Comments MPV (test code = MPV) 8.0 7.4-10.4 [facility] CentennialHgzxvyaWIGPVGQYBZ6402-82-00 14:26:00 Test Item Value Reference Range Interpretation Comments RDW (test code = RDW) 17.2 11.5-14.5 [facility] CentennialAvytepeXPZCJGODCZ7039-82-30 14:26:00 Test Item Value Reference Range Interpretation Comments Platelet (test code = Platelet) 223 133-450 [facility] CentennialGudpxsaEZCKSBTMBD1906-96-08 14:26:00 Test Item Value Reference Range Interpretation Comments MCHC (test code = MCHC) 35.0 32.0-36.0 [facility] CentennialUutzyoyUSWAOGBYHL3396-72-19 14:26:00 Test Item Value Reference Range Interpretation Comments INR (test code = INR) 0.93 0.85-1.17 [facility] CentennialTzhmtmzKPOWVVQBHU7765-77-56 14:26:00 Test Item Value Reference Range Interpretation Comments PT (test code = PT) 12.4 s 12.0-14.7 [facility]2014-09-22 14:26:00 Test Item Value Reference Range Interpretation Comments BUN (test code = BUN) 8 7-22 [facility]2014-09-22 14:26:00 Test Item Value Reference Range Interpretation Comments Glucose Lvl (test code = Glucose Lvl) 91 70-99 [facility]2014-09-22 14:26:00 Test Item Value Reference Range Interpretation Comments CO2 (test code = CO2) 29 24-32 [facility]2014-09-22 14:26:00 Test Item Value Reference Range Interpretation Comments AGAP (test code = AGAP) 6.7 10.0-20.0 [facility]2014-09-22 14:26:00 Test Item Value Reference Range Interpretation Comments eGFR (test code = eGFR) 86 [facility]2014-09-22 14:26:00 Test Item Value Reference Range Interpretation Comments Creatinine Lvl (test code = Creatinine 0.8 0.5-1.4 Lvl) [facility]2014-09-22 14:26:00 Test Item Value Reference Range Interpretation Comments Chloride Lvl (test code = Chloride Lvl) 104 95-109 [facility]2014-09-22 14:26:00 Test Item Value Reference Range Interpretation Comments Potassium Lvl (test code = Potassium 3.7 3.5-5.1 Lvl) [facility]2014-09-22 14:26:00 Test Item Value Reference Range Interpretation Comments Sodium Lvl (test code = Sodium Lvl) 136 135-145 [facility]2014-09-22 14:26:00 Test Item Value Reference Range Interpretation Comments Calcium Lvl (test code = Calcium Lvl) 9.7 8.5-10.5 [facility] CentennialJnvddfcEIWFLVHQHD9948-59-29 14:26:00 Test Item Value Reference Range Interpretation Comments MCV (test code = MCV) 101.6 80.0-98.0 [facility] CentennialHrolwqvCCQISKYDTH4779-91-70 14:26:00 Test Item Value Reference Range Interpretation Comments MCH (test code = MCH) 35.5 pg 27.0-31.0 [facility] CentennialVpptzmtMQUIIEVLSG8777-96-44 14:26:00 Test Item Value Reference Range Interpretation Comments Hgb (test code = Hgb) 13.3 12.0-16.0 [facility] CentennialRwrsxliHQIAOVPKAB0355-66-36 14:26:00 Test Item Value Reference Range Interpretation Comments Hct (test code = Hct) 37.9 36.0-48.0 [facility] CentennialNsilsuzGCJFGJBGRN9201-64-52 14:26:00 Test Item Value Reference Range Interpretation Comments RBC (test code = RBC) 3.73 4.20-5.40 [facility] CentennialDxggzvdPWPVWQIXVO7818-99-17 14:26:00 Test Item Value Reference Range Interpretation Comments WBC (test code = WBC) 6.1 3.7-10.4 [facility] CentennialUsjhtilATWFFFPQII1075-24-37 14:26:00 Test Item Value Reference Range Interpretation Comments MPV (test code = MPV) 8.0 7.4-10.4 [facility] CentennialXiganamNOSKUKGEJT0215-18-54 14:26:00 Test Item Value Reference Range Interpretation Comments RDW (test code = RDW) 17.2 11.5-14.5 [facility] CentennialYspsxrjPFPYLQZTOT9168-23-63 14:26:00 Test Item Value Reference Range Interpretation Comments Platelet (test code = Platelet) 223 133-450 [facility] CentennialFjuzczrQVWFKOPKYV4775-97-78 14:26:00 Test Item Value Reference Range Interpretation Comments MCHC (test code = MCHC) 35.0 32.0-36.0 [facility] CentennialWncbbmxRIBWJXTSYL1163-82-04 14:26:00 Test Item Value Reference Range Interpretation Comments INR (test code = INR) 0.93 0.85-1.17 [facility] CentennialWbxfnjfASJJLUAWNE9588-70-22 14:26:00 Test Item Value Reference Range Interpretation Comments PT (test code = PT) 12.4 s 12.0-14.7 [facility]2014-09-22 14:26:00 Test Item Value Reference Range Interpretation Comments BUN (test code = BUN) 8 7- [facility]2014-09-22 14:26:00 Test Item Value Reference Range Interpretation Comments Glucose Lvl (test code = Glucose Lvl) 91 70-99 [facility]2014-09-22 14:26:00 Test Item Value Reference Range Interpretation Comments CO2 (test code = CO2) 29 24-32 [facility]2014-09-22 14:26:00 Test Item Value Reference Range Interpretation Comments AGAP (test code = AGAP) 6.7 10.0-20.0 [facility]2014-09-22 14:26:00 Test Item Value Reference Range Interpretation Comments eGFR (test code = eGFR) 86 [facility]2014-09-22 14:26:00 Test Item Value Reference Range Interpretation Comments Creatinine Lvl (test code = Creatinine 0.8 0.5-1.4 Lvl) [facility]2014-09-22 14:26:00 Test Item Value Reference Range Interpretation Comments Chloride Lvl (test code = Chloride Lvl) 104 95-109 [facility]2014-09-22 14:26:00 Test Item Value Reference Range Interpretation Comments Potassium Lvl (test code = Potassium 3.7 3.5-5.1 Lvl) [facility]2014-09-22 14:26:00 Test Item Value Reference Range Interpretation Comments Sodium Lvl (test code = Sodium Lvl) 136 135-145 [facility]2014-09-22 14:26:00 Test Item Value Reference Range Interpretation Comments Calcium Lvl (test code = Calcium Lvl) 9.7 8.5-10.5 [facility] CentennialYhwtddvHZTPEHSYTT1318-49-57 14:26:00 Test Item Value Reference Range Interpretation Comments MCV (test code = MCV) 101.6 80.0-98.0 [facility] CentennialRhyrdfyIFYXAZNTDF7000-33-95 14:26:00 Test Item Value Reference Range Interpretation Comments MCH (test code = MCH) 35.5 pg 27.0-31.0 [facility] CentennialQylkrcbNUCNRCQIED2440-71-93 14:26:00 Test Item Value Reference Range Interpretation Comments Hgb (test code = Hgb) 13.3 12.0-16.0 [facility] CentennialNbvhhruVJXWFWGOKS2660-50-35 14:26:00 Test Item Value Reference Range Interpretation Comments Hct (test code = Hct) 37.9 36.0-48.0 [facility] CentennialIufhcklMUHJAWYPAG7279-46-55 14:26:00 Test Item Value Reference Range Interpretation Comments RBC (test code = RBC) 3.73 4.20-5.40 [facility] CentennialNzymiihFYTGBSCFRF6333-64-26 14:26:00 Test Item Value Reference Range Interpretation Comments WBC (test code = WBC) 6.1 3.7-10.4 [facility] CentennialBxnadysABDCDMPAIM9069-13-24 14:26:00 Test Item Value Reference Range Interpretation Comments MPV (test code = MPV) 8.0 7.4-10.4 [facility] CentennialGckudbaZKQEKTONSK8101-58-94 14:26:00 Test Item Value Reference Range Interpretation Comments RDW (test code = RDW) 17.2 11.5-14.5 [facility] CentennialGlbjexcTQXQMVZTIP2623-53-91 14:26:00 Test Item Value Reference Range Interpretation Comments Platelet (test code = Platelet) 223 133-450 [facility] CentennialCtofxqkORQGMACDPP9003-44-06 14:26:00 Test Item Value Reference Range Interpretation Comments MCHC (test code = MCHC) 35.0 32.0-36.0 [facility] CentennialQwnjjgaCYEDCGASIT2508-99-39 14:26:00 Test Item Value Reference Range Interpretation Comments INR (test code = INR) 0.93 0.85-1.17 [facility] CentennialVzxhgxlHPTXAYIXBZ7018-02-68 14:26:00 Test Item Value Reference Range Interpretation Comments PT (test code = PT) 12.4 s 12.0-14.7 [facility]2014-09-22 14:26:00 Test Item Value Reference Range Interpretation Comments BUN (test code = BUN) 8 7-22 [facility]2014-09-22 14:26:00 Test Item Value Reference Range Interpretation Comments Glucose Lvl (test code = Glucose Lvl) 91 70-99 [facility]2014-09-22 14:26:00 Test Item Value Reference Range Interpretation Comments CO2 (test code = CO2) 29 24-32 [facility]2014-09-22 14:26:00 Test Item Value Reference Range Interpretation Comments AGAP (test code = AGAP) 6.7 10.0-20.0 [facility]2014-09-22 14:26:00 Test Item Value Reference Range Interpretation Comments eGFR (test code = eGFR) 86 [facility]2014-09-22 14:26:00 Test Item Value Reference Range Interpretation Comments Creatinine Lvl (test code = Creatinine 0.8 0.5-1.4 Lvl) [facility]2014-09-22 14:26:00 Test Item Value Reference Range Interpretation Comments Chloride Lvl (test code = Chloride Lvl) 104 95-109 [facility]2014-09-22 14:26:00 Test Item Value Reference Range Interpretation Comments Potassium Lvl (test code = Potassium 3.7 3.5-5.1 Lvl) [facility]2014-09-22 14:26:00 Test Item Value Reference Range Interpretation Comments Sodium Lvl (test code = Sodium Lvl) 136 135-145 [facility]2014-09-22 14:26:00 Test Item Value Reference Range Interpretation Comments Calcium Lvl (test code = Calcium Lvl) 9.7 8.5-10.5 [facility] CentennialQqfkydpSJLEAGCKCU7788-00-34 14:26:00 Test Item Value Reference Range Interpretation Comments MCV (test code = MCV) 101.6 80.0-98.0 [facility] CentennialWihrnlaLPJVJZCMOO6563-15-16 14:26:00 Test Item Value Reference Range Interpretation Comments MCH (test code = MCH) 35.5 pg 27.0-31.0 [facility] CentennialTupigzyTVCGPUBAPZ5907-95-82 14:26:00 Test Item Value Reference Range Interpretation Comments Hgb (test code = Hgb) 13.3 12.0-16.0 [facility] CentennialInisatmYQVBXSUGVI3857-63-17 14:26:00 Test Item Value Reference Range Interpretation Comments Hct (test code = Hct) 37.9 36.0-48.0 [facility] CentennialWvrmtuyUUIXAWXKNV0846-02-21 14:26:00 Test Item Value Reference Range Interpretation Comments RBC (test code = RBC) 3.73 4.20-5.40 [facility] CentennialXzfnbxkOFNAHWZBJC0920-51-65 14:26:00 Test Item Value Reference Range Interpretation Comments WBC (test code = WBC) 6.1 3.7-10.4 [place] 010214-09-22 14:26:00 Test Item Value Reference Range Interpretation Comments MPV (test code = MPV) 8.0 7.4-10.4 [facility] CentennialDunwkdqFDQFVLHUNR5670-42-03 14:26:00 Test Item Value Reference Range Interpretation Comments RDW (test code = RDW) 17.2 11.5-14.5 [facility] CentennialXntltrxVGMESBWIXQ0435-17-66 14:26:00 Test Item Value Reference Range Interpretation Comments Platelet (test code = Platelet) 223 133-450 [facility] CentennialKbojfuzJZZWMFYXVF2597-57-98 14:26:00 Test Item Value Reference Range Interpretation Comments MCHC (test code = MCHC) 35.0 32.0-36.0 [facility] CentennialCtmtwwhHLXZNHUJXP6780-23-04 14:26:00 Test Item Value Reference Range Interpretation Comments INR (test code = INR) 0.93 0.85-1.17 [facility] CentennialGdrcfohFDNQUNFWPU8719-85-11 14:26:00 Test Item Value Reference Range Interpretation Comments PT (test code = PT) 12.4 s 12.0-14.7 [facility]2014-09-22 14:26:00 Test Item Value Reference Range Interpretation Comments BUN (test code = BUN) 8 7-22 [facility]2014-09-22 14:26:00 Test Item Value Reference Range Interpretation Comments Glucose Lvl (test code = Glucose Lvl) 91 70-99 [facility]2014-09-22 14:26:00 Test Item Value Reference Range Interpretation Comments CO2 (test code = CO2) 29 24-32 [facility]2014-09-22 14:26:00 Test Item Value Reference Range Interpretation Comments AGAP (test code = AGAP) 6.7 10.0-20.0 [facility]2014-09-22 14:26:00 Test Item Value Reference Range Interpretation Comments eGFR (test code = eGFR) 86 [facility]2014-09-22 14:26:00 Test Item Value Reference Range Interpretation Comments Creatinine Lvl (test code = Creatinine 0.8 0.5-1.4 Lvl) [facility]2014-09-22 14:26:00 Test Item Value Reference Range Interpretation Comments Chloride Lvl (test code = Chloride Lvl) 104 95-109 [facility]2014-09-22 14:26:00 Test Item Value Reference Range Interpretation Comments Potassium Lvl (test code = Potassium 3.7 3.5-5.1 Lvl) [facility]2014-09-22 14:26:00 Test Item Value Reference Range Interpretation Comments Sodium Lvl (test code = Sodium Lvl) 136 135-145 [facility]2014-09-22 14:26:00 Test Item Value Reference Range Interpretation Comments Calcium Lvl (test code = Calcium Lvl) 9.7 8.5-10.5 [facility] CentennialCuyykjpZSZMGFNVWN3978-23-15 14:26:00 Test Item Value Reference Range Interpretation Comments MCV (test code = MCV) 101.6 80.0-98.0 [facility] CentennialCkkijtyOXAAOQBORG0064-34-24 14:26:00 Test Item Value Reference Range Interpretation Comments MCH (test code = MCH) 35.5 pg 27.0-31.0 [facility] CentennialMbcvftkNHGPEMHAZZ6271-47-82 14:26:00 Test Item Value Reference Range Interpretation Comments Hgb (test code = Hgb) 13.3 12.0-16.0 [facility] CentennialHnehotqORTCMPXOOT1047-65-05 14:26:00 Test Item Value Reference Range Interpretation Comments Hct (test code = Hct) 37.9 36.0-48.0 [facility] CentennialTkgyccbHWYEWHQTBS8457-42-07 14:26:00 Test Item Value Reference Range Interpretation Comments RBC (test code = RBC) 3.73 4.20-5.40 [facility] CentennialMclznyoCXTVXMZDLG3116-87-15 14:26:00 Test Item Value Reference Range Interpretation Comments WBC (test code = WBC) 6.1 3.7-10.4 [facility] CentennialRmsacksVMUPTZRVKV1340-48-68 14:26:00 Test Item Value Reference Range Interpretation Comments MPV (test code = MPV) 8.0 7.4-10.4 [facility] CentennialCzfamrgUVZGIURHYM5413-40-68 14:26:00 Test Item Value Reference Range Interpretation Comments RDW (test code = RDW) 17.2 11.5-14.5 [facility] CentennialJtdaxmpQJLMBHPSPK2418-00-74 14:26:00 Test Item Value Reference Range Interpretation Comments Platelet (test code = Platelet) 223 133-450 [facility] CentennialXtbfxtyDJVSLAAHSO4166-38-61 14:26:00 Test Item Value Reference Range Interpretation Comments MCHC (test code = MCHC) 35.0 32.0-36.0 [facility] CentennialNprlgxwXTBQCCFASZ3310-53-46 14:26:00 Test Item Value Reference Range Interpretation Comments INR (test code = INR) 0.93 0.85-1.17 [facility] CentennialSzcadqiEKPWRAGITR4278-10-81 14:26:00 Test Item Value Reference Range Interpretation Comments PT (test code = PT) 12.4 s 12.0-14.7 [facility]2014-09-22 14:26:00 Test Item Value Reference Range Interpretation Comments BUN (test code = BUN) 8 - [facility]2014-09-22 14:26:00 Test Item Value Reference Range Interpretation Comments Glucose Lvl (test code = Glucose Lvl) 91 70-99 [facility]2014-09-22 14:26:00 Test Item Value Reference Range Interpretation Comments CO2 (test code = CO2) 29 24-32 [facility]2014-09-22 14:26:00 Test Item Value Reference Range Interpretation Comments AGAP (test code = AGAP) 6.7 10.0-20.0 [facility]2014-09-22 14:26:00 Test Item Value Reference Range Interpretation Comments eGFR (test code = eGFR) 86 [facility]2014-09-22 14:26:00 Test Item Value Reference Range Interpretation Comments Creatinine Lvl (test code = Creatinine 0.8 0.5-1.4 Lvl) [facility]2014-09-22 14:26:00 Test Item Value Reference Range Interpretation Comments Chloride Lvl (test code = Chloride Lvl) 104 95-109 [facility]2014-09-22 14:26:00 Test Item Value Reference Range Interpretation Comments Potassium Lvl (test code = Potassium 3.7 3.5-5.1 Lvl) [facility]2014-09-22 14:26:00 Test Item Value Reference Range Interpretation Comments Sodium Lvl (test code = Sodium Lvl) 136 135-145 [facility]2014-09-22 14:26:00 Test Item Value Reference Range Interpretation Comments Calcium Lvl (test code = Calcium Lvl) 9.7 8.5-10.5 [place] 010214-09-22 14:26:00 Test Item Value Reference Range Interpretation Comments MCV (test code = MCV) 101.6 80.0-98.0 [facility] CentennialAnupbrrSPQYJNTWNV4740-39-39 14:26:00 Test Item Value Reference Range Interpretation Comments MCH (test code = MCH) 35.5 pg 27.0-31.0 [facility] CentennialCuhofhlXQPERRFAJW3844-79-61 14:26:00 Test Item Value Reference Range Interpretation Comments Hgb (test code = Hgb) 13.3 12.0-16.0 [facility] CentennialFmuhnfdGDPMWVLZNK2413-92-86 14:26:00 Test Item Value Reference Range Interpretation Comments Hct (test code = Hct) 37.9 36.0-48.0 [facility]ennialPtwaymwNJNPIHTOGD7261-01-37 14:26:00 Test Item Value Reference Range Interpretation Comments RBC (test code = RBC) 3.73 4.20-5.40 [facility]ennialRkwnhyuOKRNXIWJMQ2292-47-98 14:26:00 Test Item Value Reference Range Interpretation Comments WBC (test code = WBC) 6.1 3.7-10.4 [facility]ennialQqcqqhdVBZFHLBGHJ7501-16-53 14:26:00 Test Item Value Reference Range Interpretation Comments MPV (test code = MPV) 8.0 7.4-10.4 [facility]ennialQhyczmgALWDVCWQKD6749-30-71 14:26:00 Test Item Value Reference Range Interpretation Comments RDW (test code = RDW) 17.2 11.5-14.5 [facility]ennialEzztzdpGBGMTKWIET2657-56-38 14:26:00 Test Item Value Reference Range Interpretation Comments Platelet (test code = Platelet) 223 133-450 [facility] CentennialDdhboagYBPTBNHHWM0867-79-23 14:26:00 Test Item Value Reference Range Interpretation Comments MCHC (test code = MCHC) 35.0 32.0-36.0 [facility] CentennialOncsolzAXRVRCVKDY8078-65-39 14:26:00 Test Item Value Reference Range Interpretation Comments INR (test code = INR) 0.93 0.85-1.17 [facility]ennialDmrohsqZURZWXBCOS1255-84-33 14:26:00 Test Item Value Reference Range Interpretation Comments PT (test code = PT) 12.4 s 12.0-14.7 [facility]2014-09-22 14:26:00 Test Item Value Reference Range Interpretation Comments BUN (test code = BUN) 8 7-22 [facility]2014-09-22 14:26:00 Test Item Value Reference Range Interpretation Comments Glucose Lvl (test code = Glucose Lvl) 91 70-99 [facility]2014-09-22 14:26:00 Test Item Value Reference Range Interpretation Comments CO2 (test code = CO2) 29 24-32 [facility]2014-09-22 14:26:00 Test Item Value Reference Range Interpretation Comments AGAP (test code = AGAP) 6.7 10.0-20.0 [facility]2014-09-22 14:26:00 Test Item Value Reference Range Interpretation Comments eGFR (test code = eGFR) 86 [facility]2014-09-22 14:26:00 Test Item Value Reference Range Interpretation Comments Creatinine Lvl (test code = Creatinine 0.8 0.5-1.4 Lvl) [facility]2014-09-22 14:26:00 Test Item Value Reference Range Interpretation Comments Chloride Lvl (test code = Chloride Lvl) 104 95-109 [facility]2014-09-22 14:26:00 Test Item Value Reference Range Interpretation Comments Potassium Lvl (test code = Potassium 3.7 3.5-5.1 Lvl) [facility]2014-09-22 14:26:00 Test Item Value Reference Range Interpretation Comments Sodium Lvl (test code = Sodium Lvl) 136 135-145 [facility]2014-09-22 14:26:00 Test Item Value Reference Range Interpretation Comments Calcium Lvl (test code = Calcium Lvl) 9.7 8.5-10.5 [facility]ennialDstdrkjEDZSTIVXRS7654-12-53 14:26:00 Test Item Value Reference Range Interpretation Comments MCV (test code = MCV) 101.6 80.0-98.0 [facility] CentennialUljicylVZNXQJNFER3575-93-07 14:26:00 Test Item Value Reference Range Interpretation Comments MCH (test code = MCH) 35.5 pg 27.0-31.0 [facility]ennialOxcigfkOUWLYRLCKL4521-89-27 14:26:00 Test Item Value Reference Range Interpretation Comments Hgb (test code = Hgb) 13.3 12.0-16.0 [facility] CentennialZflmmwcJOXHXMMCSL1773-19-44 14:26:00 Test Item Value Reference Range Interpretation Comments Hct (test code = Hct) 37.9 36.0-48.0 [facility] CentennialMuvqmfxYYBSDSVRZE5127-82-50 14:26:00 Test Item Value Reference Range Interpretation Comments RBC (test code = RBC) 3.73 4.20-5.40 [facility]ennialEfqeetnQUTOWZCVVH1732-36-24 14:26:00 Test Item Value Reference Range Interpretation Comments WBC (test code = WBC) 6.1 3.7-10.4 [facility] CentennialLxzbtalUVSVCNGXQH7602-69-53 14:26:00 Test Item Value Reference Range Interpretation Comments MPV (test code = MPV) 8.0 7.4-10.4 [facility]ennialBplzzvjJBFXKRUCYI4670-29-36 14:26:00 Test Item Value Reference Range Interpretation Comments RDW (test code = RDW) 17.2 11.5-14.5 [facility] CentennialZyjhvtvRFFLYKRZLI3037-40-76 14:26:00 Test Item Value Reference Range Interpretation Comments Platelet (test code = Platelet) 223 133-450 [facility]ennialNpnlqvgRPRHOBWZDE0330-23-03 14:26:00 Test Item Value Reference Range Interpretation Comments MCHC (test code = MCHC) 35.0 32.0-36.0 [facility]ennialUcgbjtyIRJARBZLKW1480-18-77 14:26:00 Test Item Value Reference Range Interpretation Comments INR (test code = INR) 0.93 0.85-1.17 [facility]ennialXdyhhqyDMMFQFRLLO0421-96-17 14:26:00 Test Item Value Reference Range Interpretation Comments PT (test code = PT) 12.4 s 12.0-14.7 [facility]2014-09-22 14:26:00 Test Item Value Reference Range Interpretation Comments BUN (test code = BUN) 8 7-22 [facility]2014-09-22 14:26:00 Test Item Value Reference Range Interpretation Comments Glucose Lvl (test code = Glucose Lvl) 91 70-99 [facility]2014-09-22 14:26:00 Test Item Value Reference Range Interpretation Comments CO2 (test code = CO2) 29 24-32 [facility]2014-09-22 14:26:00 Test Item Value Reference Range Interpretation Comments AGAP (test code = AGAP) 6.7 10.0-20.0 [facility]2014-09-22 14:26:00 Test Item Value Reference Range Interpretation Comments eGFR (test code = eGFR) 86 [facility]2014-09-22 14:26:00 Test Item Value Reference Range Interpretation Comments Creatinine Lvl (test code = Creatinine 0.8 0.5-1.4 Lvl) [facility]2014-09-22 14:26:00 Test Item Value Reference Range Interpretation Comments Chloride Lvl (test code = Chloride Lvl) 104 95-109 [facility]2014-09-22 14:26:00 Test Item Value Reference Range Interpretation Comments Potassium Lvl (test code = Potassium 3.7 3.5-5.1 Lvl) [facility]2014-09-22 14:26:00 Test Item Value Reference Range Interpretation Comments Sodium Lvl (test code = Sodium Lvl) 136 135-145 [facility]2014-09-22 14:26:00 Test Item Value Reference Range Interpretation Comments Calcium Lvl (test code = Calcium Lvl) 9.7 8.5-10.5 [facility]ennialItyoppoJOJWFFXBYG4428-77-69 14:26:00 Test Item Value Reference Range Interpretation Comments MCV (test code = MCV) 101.6 80.0-98.0 [facility] CentennialUdrnlxtHEUOYXGYUY6916-98-29 14:26:00 Test Item Value Reference Range Interpretation Comments MCH (test code = MCH) 35.5 pg 27.0-31.0 [facility] CentennialHrvkilqBVZMPHWXJE7256-27-18 14:26:00 Test Item Value Reference Range Interpretation Comments Hgb (test code = Hgb) 13.3 12.0-16.0 [facility]ennialWpkwjoxXSDWMDVGII9473-97-75 14:26:00 Test Item Value Reference Range Interpretation Comments Hct (test code = Hct) 37.9 36.0-48.0 [facility]ennialOqaeeonWFQMLBYFQF9298-10-22 14:26:00 Test Item Value Reference Range Interpretation Comments RBC (test code = RBC) 3.73 4.20-5.40 [facility] CentennialJoxdgnaDXDRXJGMKL2133-04-44 14:26:00 Test Item Value Reference Range Interpretation Comments WBC (test code = WBC) 6.1 3.7-10.4 [facility] CentennialYlfaynsKQXYWKOJOT2643-47-59 14:26:00 Test Item Value Reference Range Interpretation Comments MPV (test code = MPV) 8.0 7.4-10.4 [facility] CentennialTdzkaseURMGUSGQPQ5989-65-21 14:26:00 Test Item Value Reference Range Interpretation Comments RDW (test code = RDW) 17.2 11.5-14.5 [facility] CentennialJylwgixQRZHUKARKX7715-03-80 14:26:00 Test Item Value Reference Range Interpretation Comments Platelet (test code = Platelet) 223 133-450 [facility]ennialMjvqmxqKYMFYGHGSY2749-83-97 14:26:00 Test Item Value Reference Range Interpretation Comments MCHC (test code = MCHC) 35.0 32.0-36.0 [facility] CentennialMddopetRLTBHWWJGL0893-52-82 14:26:00 Test Item Value Reference Range Interpretation Comments INR (test code = INR) 0.93 0.85-1.17 [facility]ennialPwgsrxuSXIKTILKVI9970-05-35 14:26:00 Test Item Value Reference Range Interpretation Comments PT (test code = PT) 12.4 s 12.0-14.7 [facility]2014-05-07 09:42:00 Test Item Value Reference Range Interpretation Comments eGFR (test code = eGFR) 113 [facility]2014-05-07 09:42:00 Test Item Value Reference Range Interpretation Comments BUN (test code = BUN) 4 7-22 [facility]2014-05-07 09:42:00 Test Item Value Reference Range Interpretation Comments Potassium Lvl (test code = Potassium 3.8 3.5-5.1 Lvl) [facility]2014-05-07 09:42:00 Test Item Value Reference Range Interpretation Comments Creatinine Lvl (test code = Creatinine 0.5 0.5-1.4 Lvl) [facility]2014-05-07 09:42:00 Test Item Value Reference Range Interpretation Comments Glucose Lvl (test code = Glucose Lvl) 94 70-99 [facility]2014-05-07 09:42:00 Test Item Value Reference Range Interpretation Comments Sodium Lvl (test code = Sodium Lvl) 142 135-145 [facility]2014-05-07 09:42:00 Test Item Value Reference Range Interpretation Comments Calcium Lvl (test code = Calcium Lvl) 8.7 8.5-10.5 [facility]2014-05-07 09:42:00 Test Item Value Reference Range Interpretation Comments Chloride Lvl (test code = Chloride Lvl) 105 95-109 [facility]2014-05-07 09:42:00 Test Item Value Reference Range Interpretation Comments CO2 (test code = CO2) 30 24-32 [facility]2014-05-07 09:42:00 Test Item Value Reference Range Interpretation Comments AGAP (test code = AGAP) 10.8 10.0-20.0 [facility]ennialGjapmsvYZKFOZIUFS7462-92-07 09:42:00 Test Item Value Reference Range Interpretation Comments WBC (test code = WBC) 4.4 3.7-10.4 [facility]ennialFmgufvuIOMPGVUIMV1190-83-38 09:42:00 Test Item Value Reference Range Interpretation Comments RBC (test code = RBC) 3.80 4.20-5.40 [facility] CentennialWodeaoxGLIRNNXNKZ6320-61-91 09:42:00 Test Item Value Reference Range Interpretation Comments MCH (test code = MCH) 31.1 pg 27.0-31.0 [facility] CentennialKdgasyjZJYLZTMVNA2380-52-32 09:42:00 Test Item Value Reference Range Interpretation Comments Hgb (test code = Hgb) 11.8 12.0-16.0 [facility] CentennialYrcbambSUBGDGFPCW5082-02-02 09:42:00 Test Item Value Reference Range Interpretation Comments Hct (test code = Hct) 34.5 36.0-48.0 [facility] CentennialVfeqdouCAYDOLFLYV0051-36-23 09:42:00 Test Item Value Reference Range Interpretation Comments MCV (test code = MCV) 90.6 81.0-99.0 [facility] CentennialUzmxiiiBNNZEKCYYW1462-12-92 09:42:00 Test Item Value Reference Range Interpretation Comments RDW (test code = RDW) 16.3 11.5-14.5 [facility]ennialKjvvdyhCYSNUFQPZF3257-40-23 09:42:00 Test Item Value Reference Range Interpretation Comments MCHC (test code = MCHC) 34.3 32.0-36.0 [facility] CentennialOmygacjSTINGKBNOB4495-65-82 09:42:00 Test Item Value Reference Range Interpretation Comments Platelet (test code = Platelet) 167 133-450 [facility] CentennialUrwybhwQZVCLJIXNQ9879-71-72 09:42:00 Test Item Value Reference Range Interpretation Comments MPV (test code = MPV) 7.9 7.4-10.4 [facility] CentennialKlyrmkuMHDMQKLZFZ3721-49-08 09:42:00 Test Item Value Reference Range Interpretation Comments Eosinophils (test code = 1.6 See_Comment [A utomated message] The Eosinophils) system which ge nerated this result tra nsmitted reference range : <=4.0. The reference r j[place] was not used to int erpret this result as normal/abnormal . [facility]ennialQhgolamQMKOMNDVTW0837-07-73 09:42:00 Test Item Value Reference Range Interpretation Comments Basophils (test code = 0.2 See_Comment [Aut omated message] The Basophils) system which ge nerated this result tra nsmitted reference range : <=1.0. The reference r j[place] was not used to int erpret this result as normal/abnormal . [facility]ennialUzaizbxMZIDFXWXKM3490-50-88 09:42:00 Test Item Value Reference Range Interpretation Comments Segs-Bands # (test code = Segs-Bands #) 2.6 1.5-8.1 [facility] CentennialPrdspgrPVMTFGZBJD6285-55-98 09:42:00 Test Item Value Reference Range Interpretation Comments Monocytes (test code = Monocytes) 7.4 2.0-12.0 [facility] CentennialWrhnpbzXXWOHZFZZZ1329-31-59 09:42:00 Test Item Value Reference Range Interpretation Comments Lymphocytes # (test code = Lymphocytes 1.3 1.0-5.5 #) [facility] CentennialLpexhzvGZHDHTCCPV9831-37-96 09:42:00 Test Item Value Reference Range Interpretation Comments Monocytes # (test code 0.3 See_Comment [Aut omated message] The = Monocytes #) system which generated this result tra nsmitted reference range : <=0.8. The reference r jaamica was not used to int erpret this result as normal/abnormal . [facility]ennialEabldbaPZYLIKQNBM0340-97-10 09:42:00 Test Item Value Reference Range Interpretation Comments Eosinophils # (test code 0.1 See_Comment [A utomated message] The = Eosinophils #) system whic h generated this result tra nsmitted reference range : <=0.5. The reference r j[place] was not used to int erpret this result as normal/abnormal . [facility]ennialDpkqdffMOLXESUBKF6723-87-60 09:42:00 Test Item Value Reference Range Interpretation Comments Basophils # (test code 0.0 See_Comment [Aut omated message] The = Basophils #) system which generated this result tra nsmitted reference range : <=0.2. The reference r jama[place] was not used to int erpret this result as normal/abnormal . [facility]ennialVngdcqrGJQVQQOMTS1741-30-07 09:42:00 Test Item Value Reference Range Interpretation Comments Lymphocytes (test code = Lymphocytes) 30.7 20.0-40.0 [facility]ennialUibnqyeETMDXWNJBN9963-29-44 09:42:00 Test Item Value Reference Range Interpretation Comments Segs (test code = Segs) 60.1 45.0-75.0 [facility]2014-05-07 09:42:00 Test Item Value Reference Range Interpretation Comments Magnesium Lvl (test code = Magnesium 2.0 1.8-2.4 Lvl) [facility]2014-05-07 09:42:00 Test Item Value Reference Range Interpretation Comments eGFR (test code = eGFR) 113 [facility]2014-05-07 09:42:00 Test Item Value Reference Range Interpretation Comments BUN (test code = BUN) 4 7-22 [facility]2014-05-07 09:42:00 Test Item Value Reference Range Interpretation Comments Potassium Lvl (test code = Potassium 3.8 3.5-5.1 Lvl) [facility]2014-05-07 09:42:00 Test Item Value Reference Range Interpretation Comments Creatinine Lvl (test code = Creatinine 0.5 0.5-1.4 Lvl) [facility]2014-05-07 09:42:00 Test Item Value Reference Range Interpretation Comments Glucose Lvl (test code = Glucose Lvl) 94 70-99 [facility]2014-05-07 09:42:00 Test Item Value Reference Range Interpretation Comments Sodium Lvl (test code = Sodium Lvl) 142 135-145 [facility]2014-05-07 09:42:00 Test Item Value Reference Range Interpretation Comments Calcium Lvl (test code = Calcium Lvl) 8.7 8.5-10.5 [facility]2014-05-07 09:42:00 Test Item Value Reference Range Interpretation Comments Chloride Lvl (test code = Chloride Lvl) 105 95-109 [facility]2014-05-07 09:42:00 Test Item Value Reference Range Interpretation Comments CO2 (test code = CO2) 30 24-32 [facility]2014-05-07 09:42:00 Test Item Value Reference Range Interpretation Comments AGAP (test code = AGAP) 10.8 10.0-20.0 [facility]ennialStptpmgYGFPYCOUBA8291-69-78 09:42:00 Test Item Value Reference Range Interpretation Comments WBC (test code = WBC) 4.4 3.7-10.4 [facility]ennialCqjrkmvQGRYWKDTIK8195-87-42 09:42:00 Test Item Value Reference Range Interpretation Comments RBC (test code = RBC) 3.80 4.20-5.40 [facility] CentennialZctfqklJFATYIUZHG7325-58-70 09:42:00 Test Item Value Reference Range Interpretation Comments MCH (test code = MCH) 31.1 pg 27.0-31.0 [facility] CentennialRqhhsnkXPLIAKHCNQ6850-02-87 09:42:00 Test Item Value Reference Range Interpretation Comments Hgb (test code = Hgb) 11.8 12.0-16.0 [facility] CentennialCgapljtYUWJXTOVPR5085-85-63 09:42:00 Test Item Value Reference Range Interpretation Comments Hct (test code = Hct) 34.5 36.0-48.0 [facility] CentennialLszuimgEBSBNFZVKJ5038-12-20 09:42:00 Test Item Value Reference Range Interpretation Comments MCV (test code = MCV) 90.6 81.0-99.0 [facility] CentennialKhweukyDHUQFZZMUU8818-54-15 09:42:00 Test Item Value Reference Range Interpretation Comments RDW (test code = RDW) 16.3 11.5-14.5 [facility] CentennialTibyvgjDLUYKZYQWR7773-84-52 09:42:00 Test Item Value Reference Range Interpretation Comments MCHC (test code = MCHC) 34.3 32.0-36.0 [facility]ennialHcjnzcsGKJAQBFJHY2582-65-66 09:42:00 Test Item Value Reference Range Interpretation Comments Platelet (test code = Platelet) 167 133-450 [facility] CentennialHaorkzvJWUZXWYQOF0427-78-12 09:42:00 Test Item Value Reference Range Interpretation Comments MPV (test code = MPV) 7.9 7.4-10.4 [facility] CentennialIgbhfojGXIWJPRIDJ6487-57-81 09:42:00 Test Item Value Reference Range Interpretation Comments Eosinophils (test code = 1.6 See_Comment [A utomated message] The Eosinophils) system which ge nerated this result tra nsmitted reference range : <=4.0. The reference r j[place] was not used to int erpret this result as normal/abnormal . [facility]ennialIkcllgbGLWLVEZZQL1317-77-63 09:42:00 Test Item Value Reference Range Interpretation Comments Basophils (test code = 0.2 See_Comment [Aut omated message] The Basophils) system which ge nerated this result tra nsmitted reference range : <=1.0. The reference r jamaica was not used to int erpret this result as normal/abnormal . [facility]ennialFzcqjzaNHPOPUBMZW2889-61-25 09:42:00 Test Item Value Reference Range Interpretation Comments Segs-Bands # (test code = Segs-Bands #) 2.6 1.5-8.1 [place] 010214-05-07 09:42:00 Test Item Value Reference Range Interpretation Comments Monocytes (test code = Monocytes) 7.4 2.0-12.0 [facility]ennialLvaxntmIASOUQOZTP3679-08-81 09:42:00 Test Item Value Reference Range Interpretation Comments Lymphocytes # (test code = Lymphocytes 1.3 1.0-5.5 #) [facility] CentennialEqvsouiEZBTFLUIGN6594-61-33 09:42:00 Test Item Value Reference Range Interpretation Comments Monocytes # (test code 0.3 See_Comment [Aut omated message] The = Monocytes #) system which generated this result tra nsmitted reference range : <=0.8. The reference r jama[place] was not used to int erpret this result as normal/abnormal . [facility]ennialPpikrggFFURFBKSYM8172-51-10 09:42:00 Test Item Value Reference Range Interpretation Comments Eosinophils # (test code 0.1 See_Comment [A utomated message] The = Eosinophils #) system whic h generated this result tra nsmitted reference range : <=0.5. The reference r jama[place] was not used to int erpret this result as normal/abnormal . [facility]ennialWyosicsSZKNUSVMBE9021-18-73 09:42:00 Test Item Value Reference Range Interpretation Comments Basophils # (test code 0.0 See_Comment [Aut omated message] The = Basophils #) system which generated this result tra nsmitted reference range : <=0.2. The reference r jamaica was not used to int erpret this result as normal/abnormal . [facility]ennialSibrkfgRZIOSUNFQR6637-54-62 09:42:00 Test Item Value Reference Range Interpretation Comments Lymphocytes (test code = Lymphocytes) 30.7 20.0-40.0 [facility] CentennialRvxbujgGZNFQHQDCM1594-41-15 09:42:00 Test Item Value Reference Range Interpretation Comments Segs (test code = Segs) 60.1 45.0-75.0 [place] [address]-05-07 09:42:00 Test Item Value Reference Range Interpretation Comments Magnesium Lvl (test code = Magnesium 2.0 1.8-2.4 Lvl) [facility]2014-05-07 09:42:00 Test Item Value Reference Range Interpretation Comments eGFR (test code = eGFR) 113 [facility]2014-05-07 09:42:00 Test Item Value Reference Range Interpretation Comments BUN (test code = BUN) 4 7-22 [facility]2014-05-07 09:42:00 Test Item Value Reference Range Interpretation Comments Potassium Lvl (test code = Potassium 3.8 3.5-5.1 Lvl) [facility]2014-05-07 09:42:00 Test Item Value Reference Range Interpretation Comments Creatinine Lvl (test code = Creatinine 0.5 0.5-1.4 Lvl) [facility]2014-05-07 09:42:00 Test Item Value Reference Range Interpretation Comments Glucose Lvl (test code = Glucose Lvl) 94 70-99 [facility]2014-05-07 09:42:00 Test Item Value Reference Range Interpretation Comments Sodium Lvl (test code = Sodium Lvl) 142 135-145 [facility]2014-05-07 09:42:00 Test Item Value Reference Range Interpretation Comments Calcium Lvl (test code = Calcium Lvl) 8.7 8.5-10.5 [facility]2014-05-07 09:42:00 Test Item Value Reference Range Interpretation Comments Chloride Lvl (test code = Chloride Lvl) 105 95-109 [place] 551894-05-07 09:42:00 Test Item Value Reference Range Interpretation Comments CO2 (test code = CO2) 30 24-32 [facility]2014-05-07 09:42:00 Test Item Value Reference Range Interpretation Comments AGAP (test code = AGAP) 10.8 10.0-20.0 [facility]ennialEjpxetcSKPLGWMFHH8032-35-55 09:42:00 Test Item Value Reference Range Interpretation Comments WBC (test code = WBC) 4.4 3.7-10.4 [facility]ennialWksfcqcQMIDCZLFMV0809-82-33 09:42:00 Test Item Value Reference Range Interpretation Comments RBC (test code = RBC) 3.80 4.20-5.40 [facility] CentennialTsjjhllGRLVFHCFDO1882-91-96 09:42:00 Test Item Value Reference Range Interpretation Comments MCH (test code = MCH) 31.1 pg 27.0-31.0 [facility]ennialOdbwffxJGJYRGDMWT7252-76-00 09:42:00 Test Item Value Reference Range Interpretation Comments Hgb (test code = Hgb) 11.8 12.0-16.0 [facility] CentennialWfuwidmCMESVTYCXJ3053-81-26 09:42:00 Test Item Value Reference Range Interpretation Comments Hct (test code = Hct) 34.5 36.0-48.0 [facility]ennialNbtdjznHPEWCSFKYU9635-20-00 09:42:00 Test Item Value Reference Range Interpretation Comments MCV (test code = MCV) 90.6 81.0-99.0 [facility]ennialHjeqtcoRUZSJHCLMS0957-82-58 09:42:00 Test Item Value Reference Range Interpretation Comments RDW (test code = RDW) 16.3 11.5-14.5 [facility]ennialPvmavzgBSQWCIUBSB0359-86-17 09:42:00 Test Item Value Reference Range Interpretation Comments MCHC (test code = MCHC) 34.3 32.0-36.0 [facility]ennialEuqcccmIPHYITRSXF2528-44-50 09:42:00 Test Item Value Reference Range Interpretation Comments Platelet (test code = Platelet) 167 133-450 [facility]ennialCbljnzpROVORWRENC8672-30-55 09:42:00 Test Item Value Reference Range Interpretation Comments MPV (test code = MPV) 7.9 7.4-10.4 [facility] CentennialBbcilrnUBZXUPRSYS1964-71-90 09:42:00 Test Item Value Reference Range Interpretation Comments Eosinophils (test code = 1.6 See_Comment [A utomated message] The Eosinophils) system which ge nerated this result tra nsmitted reference range : <=4.0. The reference r [place] was not used to int erpret this result as normal/abnormal . [facility]ennialNvgpjcaZOHDJFJJNS1421-40-80 09:42:00 Test Item Value Reference Range Interpretation Comments Basophils (test code = 0.2 See_Comment [Aut omated message] The Basophils) system which ge nerated this result tra nsmitted reference range : <=1.0. The reference r j[place] was not used to int erpret this result as normal/abnormal . [facility] CentennialYxkbelsAARYKQLLTQ0729-21-91 09:42:00 Test Item Value Reference Range Interpretation Comments Segs-Bands # (test code = Segs-Bands #) 2.6 1.5-8.1 [facility]ennialGgdgjxvDCZTPBFBBW0312-29-83 09:42:00 Test Item Value Reference Range Interpretation Comments Monocytes (test code = Monocytes) 7.4 2.0-12.0 [facility]ennialZimkqrmHFVFYSNUPU5942-84-69 09:42:00 Test Item Value Reference Range Interpretation Comments Lymphocytes # (test code = Lymphocytes 1.3 1.0-5.5 #) [facility] CentennialTyteectGIUSVMTRWP4389-09-67 09:42:00 Test Item Value Reference Range Interpretation Comments Monocytes # (test code 0.3 See_Comment [Aut omated message] The = Monocytes #) system which generated this result tra nsmitted reference range : <=0.8. The reference r j[place] was not used to int erpret this result as normal/abnormal . [facility]ennialCopnpmkGEXEBNXWDQ1508-29-21 09:42:00 Test Item Value Reference Range Interpretation Comments Eosinophils # (test code 0.1 See_Comment [A utomated message] The = Eosinophils #) system [facility] h generated this result tra nsmitted reference range : <=0.5. The reference r j[place] was not used to int erpret this result as normal/abnormal . [facility]ennialOedtssuNAWQORXZGO0254-09-08 09:42:00 Test Item Value Reference Range Interpretation Comments Basophils # (test code 0.0 See_Comment [Aut omated message] The = Basophils #) system which generated this result tra nsmitted reference range : <=0.2. The reference r j[place] was not used to int erpret this result as normal/abnormal . [facility]ennialXvnhaoaCEYJLLXZPD4284-78-77 09:42:00 Test Item Value Reference Range Interpretation Comments Lymphocytes (test code = Lymphocytes) 30.7 20.0-40.0 [place] [address]-05-07 09:42:00 Test Item Value Reference Range Interpretation Comments Segs (test code = Segs) 60.1 45.0-75.0 [place] 551894-05-07 09:42:00 Test Item Value Reference Range Interpretation Comments Magnesium Lvl (test code = Magnesium 2.0 1.8-2.4 Lvl) [place] [address]-05-07 09:42:00 Test Item Value Reference Range Interpretation Comments eGFR (test code = eGFR) 113 [facility]2014-05-07 09:42:00 Test Item Value Reference Range Interpretation Comments BUN (test code = BUN) 4 7-22 [place] [address]-05-07 09:42:00 Test Item Value Reference Range Interpretation Comments Potassium Lvl (test code = Potassium 3.8 3.5-5.1 Lvl) [facility]2014-05-07 09:42:00 Test Item Value Reference Range Interpretation Comments Creatinine Lvl (test code = Creatinine 0.5 0.5-1.4 Lvl) [facility]2014-05-07 09:42:00 Test Item Value Reference Range Interpretation Comments Glucose Lvl (test code = Glucose Lvl) 94 70-99 [facility]2014-05-07 09:42:00 Test Item Value Reference Range Interpretation Comments Sodium Lvl (test code = Sodium Lvl) 142 135-145 [facility]2014-05-07 09:42:00 Test Item Value Reference Range Interpretation Comments Calcium Lvl (test code = Calcium Lvl) 8.7 8.5-10.5 [facility]2014-05-07 09:42:00 Test Item Value Reference Range Interpretation Comments Chloride Lvl (test code = Chloride Lvl) 105 95-109 [facility]2014-05-07 09:42:00 Test Item Value Reference Range Interpretation Comments CO2 (test code = CO2) 30 24-32 [facility]2014-05-07 09:42:00 Test Item Value Reference Range Interpretation Comments AGAP (test code = AGAP) 10.8 10.0-20.0 [facility]ennialKhrllpqXDPNWKXNBI6372-71-63 09:42:00 Test Item Value Reference Range Interpretation Comments WBC (test code = WBC) 4.4 3.7-10.4 [facility]ennialUmiqmonVFFOQMQGVR2913-09-81 09:42:00 Test Item Value Reference Range Interpretation Comments RBC (test code = RBC) 3.80 4.20-5.40 [facility] CentennialNiocakeSGOCBYYDRN9583-94-64 09:42:00 Test Item Value Reference Range Interpretation Comments MCH (test code = MCH) 31.1 pg 27.0-31.0 [facility]ennialBpsnnsxPXJIGIXIDA2132-69-41 09:42:00 Test Item Value Reference Range Interpretation Comments Hgb (test code = Hgb) 11.8 12.0-16.0 [facility]ennialRiwtkxsGOOKMRQJZZ5366-02-79 09:42:00 Test Item Value Reference Range Interpretation Comments Hct (test code = Hct) 34.5 36.0-48.0 [facility]ennialPdwkpdlUMOLKXJPHQ0311-19-77 09:42:00 Test Item Value Reference Range Interpretation Comments MCV (test code = MCV) 90.6 81.0-99.0 [facility]ennialCulpmnrUDQIRLALFP8021-35-06 09:42:00 Test Item Value Reference Range Interpretation Comments RDW (test code = RDW) 16.3 11.5-14.5 [facility]ennialKbslldgOZJDZINJJX5426-79-81 09:42:00 Test Item Value Reference Range Interpretation Comments MCHC (test code = MCHC) 34.3 32.0-36.0 [facility]ennialEjhsgsxVPGWXXWUHL5592-96-41 09:42:00 Test Item Value Reference Range Interpretation Comments Platelet (test code = Platelet) 167 133-450 [facility]ennialJmxfxeoOVXELVTVUK5788-48-52 09:42:00 Test Item Value Reference Range Interpretation Comments MPV (test code = MPV) 7.9 7.4-10.4 [facility] CentennialAgopaybORXLOBGMOQ5174-00-11 09:42:00 Test Item Value Reference Range Interpretation Comments Eosinophils (test code = 1.6 See_Comment [A utomated message] The Eosinophils) system which ge nerated this result tra nsmitted reference range : <=4.0. The reference r [place] was not used to int erpret this result as normal/abnormal . [facility]ennialOnvnpugBYURLZEFBS4347-08-00 09:42:00 Test Item Value Reference Range Interpretation Comments Basophils (test code = 0.2 See_Comment [Aut omated message] The Basophils) system which ge nerated this result tra nsmitted reference range : <=1.0. The reference r j[place] was not used to int erpret this result as normal/abnormal . [facility]ennialQpdryazQDKSBPPHGD0597-39-03 09:42:00 Test Item Value Reference Range Interpretation Comments Segs-Bands # (test code = Segs-Bands #) 2.6 1.5-8.1 [facility]ennialIdgtnzwXIMMCHZAET6964-35-25 09:42:00 Test Item Value Reference Range Interpretation Comments Monocytes (test code = Monocytes) 7.4 2.0-12.0 [facility]ennialGqfrvmdLOECJNZKVP2264-01-42 09:42:00 Test Item Value Reference Range Interpretation Comments Lymphocytes # (test code = Lymphocytes 1.3 1.0-5.5 #) [facility] CentennialZseuwpvFTYTKCLCXV7040-47-44 09:42:00 Test Item Value Reference Range Interpretation Comments Monocytes # (test code 0.3 See_Comment [Aut omated message] The = Monocytes #) system which generated this result tra nsmitted reference range : <=0.8. The reference r j[place] was not used to int erpret this result as normal/abnormal . [facility]ennialJtttvisFCVZQAYVET9092-52-51 09:42:00 Test Item Value Reference Range Interpretation Comments Eosinophils # (test code 0.1 See_Comment [A utomated message] The = Eosinophils #) system whic h generated this result tra nsmitted reference range : <=0.5. The reference r [place] was not used to int erpret this result as normal/abnormal . [facility]ennialFfjsusmVVMUCKYLBH0087-82-67 09:42:00 Test Item Value Reference Range Interpretation Comments Basophils # (test code 0.0 See_Comment [Aut omated message] The = Basophils #) system which generated this result tra nsmitted reference range : <=0.2. The reference r j[place] was not used to int erpret this result as normal/abnormal . [facility] CentennialOtlifxoDPQYGZCCUK1014-16-35 09:42:00 Test Item Value Reference Range Interpretation Comments Lymphocytes (test code = Lymphocytes) 30.7 20.0-40.0 [facility] CentennialFslaubxUHVLGDVOPU8594-97-13 09:42:00 Test Item Value Reference Range Interpretation Comments Segs (test code = Segs) 60.1 45.0-75.0 [place] 551894-05-07 09:42:00 Test Item Value Reference Range Interpretation Comments Magnesium Lvl (test code = Magnesium 2.0 1.8-2.4 Lvl) [facility]2014-05-07 09:42:00 Test Item Value Reference Range Interpretation Comments eGFR (test code = eGFR) 113 [facility]2014-05-07 09:42:00 Test Item Value Reference Range Interpretation Comments BUN (test code = BUN) 4 7-22 [place] 551894-05-07 09:42:00 Test Item Value Reference Range Interpretation Comments Potassium Lvl (test code = Potassium 3.8 3.5-5.1 Lvl) [facility]2014-05-07 09:42:00 Test Item Value Reference Range Interpretation Comments Creatinine Lvl (test code = Creatinine 0.5 0.5-1.4 Lvl) [facility]2014-05-07 09:42:00 Test Item Value Reference Range Interpretation Comments Glucose Lvl (test code = Glucose Lvl) 94 70-99 [facility]2014-05-07 09:42:00 Test Item Value Reference Range Interpretation Comments Sodium Lvl (test code = Sodium Lvl) 142 135-145 [facility]2014-05-07 09:42:00 Test Item Value Reference Range Interpretation Comments Calcium Lvl (test code = Calcium Lvl) 8.7 8.5-10.5 [facility]2014-05-07 09:42:00 Test Item Value Reference Range Interpretation Comments Chloride Lvl (test code = Chloride Lvl) 105 95-109 [facility]2014-05-07 09:42:00 Test Item Value Reference Range Interpretation Comments CO2 (test code = CO2) 30 24-32 [facility]2014-05-07 09:42:00 Test Item Value Reference Range Interpretation Comments AGAP (test code = AGAP) 10.8 10.0-20.0 [facility]ennialIrntlbbMCZTLYCWCN6987-63-49 09:42:00 Test Item Value Reference Range Interpretation Comments WBC (test code = WBC) 4.4 3.7-10.4 [facility] CentennialJklhwwlGNOBLXHYYD8514-66-27 09:42:00 Test Item Value Reference Range Interpretation Comments RBC (test code = RBC) 3.80 4.20-5.40 [facility]ennialAsjixjaZRFYAKPISK1418-12-43 09:42:00 Test Item Value Reference Range Interpretation Comments MCH (test code = MCH) 31.1 pg 27.0-31.0 [facility] CentennialMjzetqdVQFOQNGKPP2105-94-05 09:42:00 Test Item Value Reference Range Interpretation Comments Hgb (test code = Hgb) 11.8 12.0-16.0 [facility]ennialIudjvkwQFBPPLMRSD7711-45-24 09:42:00 Test Item Value Reference Range Interpretation Comments Hct (test code = Hct) 34.5 36.0-48.0 [facility] CentennialYhaezgpNIQGFDUZYV9239-30-03 09:42:00 Test Item Value Reference Range Interpretation Comments MCV (test code = MCV) 90.6 81.0-99.0 [facility] CentennialVcrhgrkZMZFLKWYKM1380-01-61 09:42:00 Test Item Value Reference Range Interpretation Comments RDW (test code = RDW) 16.3 11.5-14.5 [facility] CentennialVpghrhbOMEAZCBYJD9427-95-82 09:42:00 Test Item Value Reference Range Interpretation Comments MCHC (test code = MCHC) 34.3 32.0-36.0 [facility]ennialLinkxnbRVWAENGTXC0904-48-89 09:42:00 Test Item Value Reference Range Interpretation Comments Platelet (test code = Platelet) 167 133-450 [facility]ennialGjadsjsEHVNSXGTDG2376-59-70 09:42:00 Test Item Value Reference Range Interpretation Comments MPV (test code = MPV) 7.9 7.4-10.4 [facility]ennialAexgnepLRDDXUHJNR6168-47-26 09:42:00 Test Item Value Reference Range Interpretation Comments Eosinophils (test code = 1.6 See_Comment [A utomated message] The Eosinophils) system which ge nerated this result tra nsmitted reference range : <=4.0. The reference r j[place] was not used to int erpret this result as normal/abnormal . [facility]ennialFjywtcxXVBFEDRBUK4243-62-91 09:42:00 Test Item Value Reference Range Interpretation Comments Basophils (test code = 0.2 See_Comment [Aut omated message] The Basophils) system which ge nerated this result tra nsmitted reference range : <=1.0. The reference r j[place] was not used to int erpret this result as normal/abnormal . [facility] CentennialDnuwbkzDDAGQYRMVM9376-15-56 09:42:00 Test Item Value Reference Range Interpretation Comments Segs-Bands # (test code = Segs-Bands #) 2.6 1.5-8.1 [facility]ennialMorplxuMEDASGOGJJ7734-78-15 09:42:00 Test Item Value Reference Range Interpretation Comments Monocytes (test code = Monocytes) 7.4 2.0-12.0 [facility] CentennialBfhjxsfYVWZLTDHJN5140-65-04 09:42:00 Test Item Value Reference Range Interpretation Comments Lymphocytes # (test code = Lymphocytes 1.3 1.0-5.5 #) [facility]ennialGkocwpwEGQEMTUSUI4051-20-52 09:42:00 Test Item Value Reference Range Interpretation Comments Monocytes # (test code 0.3 See_Comment [Aut omated message] The = Monocytes #) system which generated this result tra nsmitted reference range : <=0.8. The reference r j[place] was not used to int erpret this result as normal/abnormal . [facility]ennialVhmypwxXLIEGRTSAN3784-36-07 09:42:00 Test Item Value Reference Range Interpretation Comments Eosinophils # (test code 0.1 See_Comment [A utomated message] The = Eosinophils #) system whic h generated this result tra nsmitted reference range : <=0.5. The reference r j[place] was not used to int erpret this result as normal/abnormal . [facility] CentennialBvsreinUNFNQYOQWM0260-38-17 09:42:00 Test Item Value Reference Range Interpretation Comments Basophils # (test code 0.0 See_Comment [Aut omated message] The = Basophils #) system which generated this result tra nsmitted reference range : <=0.2. The reference r j[place] was not used to int erpret this result as normal/abnormal . [facility] CentennialRunzvhyHJNOMNPRHR9612-08-40 09:42:00 Test Item Value Reference Range Interpretation Comments Lymphocytes (test code = Lymphocytes) 30.7 20.0-40.0 [facility] CentennialDtmorksABEDIPEVFQ1865-15-04 09:42:00 Test Item Value Reference Range Interpretation Comments Segs (test code = Segs) 60.1 45.0-75.0 [facility]2014-05-07 09:42:00 Test Item Value Reference Range Interpretation Comments Magnesium Lvl (test code = Magnesium 2.0 1.8-2.4 Lvl) [place] 551894-05-07 09:42:00 Test Item Value Reference Range Interpretation Comments eGFR (test code = eGFR) 113 [facility]2014-05-07 09:42:00 Test Item Value Reference Range Interpretation Comments BUN (test code = BUN) 4 7-22 [place] [address]-05-07 09:42:00 Test Item Value Reference Range Interpretation Comments Potassium Lvl (test code = Potassium 3.8 3.5-5.1 Lvl) [place] 551894-05-07 09:42:00 Test Item Value Reference Range Interpretation Comments Creatinine Lvl (test code = Creatinine 0.5 0.5-1.4 Lvl) [place] 551894-05-07 09:42:00 Test Item Value Reference Range Interpretation Comments Glucose Lvl (test code = Glucose Lvl) 94 70-99 [place] 551894-05-07 09:42:00 Test Item Value Reference Range Interpretation Comments Sodium Lvl (test code = Sodium Lvl) 142 135-145 [facility]2014-05-07 09:42:00 Test Item Value Reference Range Interpretation Comments Calcium Lvl (test code = Calcium Lvl) 8.7 8.5-10.5 [facility]2014-05-07 09:42:00 Test Item Value Reference Range Interpretation Comments Chloride Lvl (test code = Chloride Lvl) 105 95-109 [place] 551894-05-07 09:42:00 Test Item Value Reference Range Interpretation Comments CO2 (test code = CO2) 30 24-32 [facility]2014-05-07 09:42:00 Test Item Value Reference Range Interpretation Comments AGAP (test code = AGAP) 10.8 10.0-20.0 [place] 010214-05-07 09:42:00 Test Item Value Reference Range Interpretation Comments WBC (test code = WBC) 4.4 3.7-10.4 [facility]ennialMkkxtdgTHKCTVKVYP7131-20-24 09:42:00 Test Item Value Reference Range Interpretation Comments RBC (test code = RBC) 3.80 4.20-5.40 [place] [address]-05-07 09:42:00 Test Item Value Reference Range Interpretation Comments MCH (test code = MCH) 31.1 pg 27.0-31.0 [facility] CentennialZkretxfIDUTVTNWAW0044-07-39 09:42:00 Test Item Value Reference Range Interpretation Comments Hgb (test code = Hgb) 11.8 12.0-16.0 [facility] CentennialLttcgoePBMLLTHXOX4745-16-81 09:42:00 Test Item Value Reference Range Interpretation Comments Hct (test code = Hct) 34.5 36.0-48.0 [facility] CentennialMczdsyuVOFFATEKIM2590-94-70 09:42:00 Test Item Value Reference Range Interpretation Comments MCV (test code = MCV) 90.6 81.0-99.0 [facility] CentennialDlezapqCRRPIDZSBO4125-63-41 09:42:00 Test Item Value Reference Range Interpretation Comments RDW (test code = RDW) 16.3 11.5-14.5 [facility] CentennialUzqteebFMYGUTWYUC7372-72-82 09:42:00 Test Item Value Reference Range Interpretation Comments MCHC (test code = MCHC) 34.3 32.0-36.0 [facility] CentennialWhjzkptVBXAMZSOPY4725-59-20 09:42:00 Test Item Value Reference Range Interpretation Comments Platelet (test code = Platelet) 167 133-450 [facility] CentennialHyvoppbPAMTEDYBVB0332-56-18 09:42:00 Test Item Value Reference Range Interpretation Comments MPV (test code = MPV) 7.9 7.4-10.4 [facility] CentennialTwyfllyXUUINTKVXM0037-92-06 09:42:00 Test Item Value Reference Range Interpretation Comments Eosinophils (test code = 1.6 See_Comment [A utomated message] The Eosinophils) system which ge nerated this result tra nsmitted reference range : <=4.0. The reference r j[place] was not used to int erpret this result as normal/abnormal . [facility]ennialCmrqikgPPLTYDQGVY9109-79-02 09:42:00 Test Item Value Reference Range Interpretation Comments Basophils (test code = 0.2 See_Comment [Aut omated message] The Basophils) system which ge nerated this result tra nsmitted reference range : <=1.0. The reference r j[place] was not used to int erpret this result as normal/abnormal . [facility] CentennialFlhpprxHEQFUUYIWL0859-39-25 09:42:00 Test Item Value Reference Range Interpretation Comments Segs-Bands # (test code = Segs-Bands #) 2.6 1.5-8.1 [place] [address]-05-07 09:42:00 Test Item Value Reference Range Interpretation Comments Monocytes (test code = Monocytes) 7.4 2.0-12.0 [facility] CentennialDmanbbzROMVJVZNWS0273-86-69 09:42:00 Test Item Value Reference Range Interpretation Comments Lymphocytes # (test code = Lymphocytes 1.3 1.0-5.5 #) [facility] CentennialNpswvycCNFWIGINAT2739-14-65 09:42:00 Test Item Value Reference Range Interpretation Comments Monocytes # (test code 0.3 See_Comment [Aut omated message] The = Monocytes #) system which generated this result tra nsmitted reference range : <=0.8. The reference r j[place] was not used to int erpret this result as normal/abnormal . [place] [address]-05-07 09:42:00 Test Item Value Reference Range Interpretation Comments Eosinophils # (test code 0.1 See_Comment [A utomated message] The = Eosinophils #) system whic h generated this result tra nsmitted reference range : <=0.5. The reference r j[place] was not used to int erpret this result as normal/abnormal . [facility]ennialCjmaqvuEHEONUMBTI3898-46-11 09:42:00 Test Item Value Reference Range Interpretation Comments Basophils # (test code 0.0 See_Comment [Aut omated message] The = Basophils #) system which generated this result tra nsmitted reference range : <=0.2. The reference r j[place] was not used to int erpret this result as normal/abnormal . [facility] CentennialInjmzzgJKWBVHADBB0237-85-38 09:42:00 Test Item Value Reference Range Interpretation Comments Lymphocytes (test code = Lymphocytes) 30.7 20.0-40.0 [place] 010214-05-07 09:42:00 Test Item Value Reference Range Interpretation Comments Segs (test code = Segs) 60.1 45.0-75.0 [facility]2014-05-07 09:42:00 Test Item Value Reference Range Interpretation Comments Magnesium Lvl (test code = Magnesium 2.0 1.8-2.4 Lvl) [facility]2014-05-07 09:42:00 Test Item Value Reference Range Interpretation Comments eGFR (test code = eGFR) 113 [facility]2014-05-07 09:42:00 Test Item Value Reference Range Interpretation Comments BUN (test code = BUN) 4 7-22 [place] 551894-05-07 09:42:00 Test Item Value Reference Range Interpretation Comments Potassium Lvl (test code = Potassium 3.8 3.5-5.1 Lvl) [place] 551894-05-07 09:42:00 Test Item Value Reference Range Interpretation Comments Creatinine Lvl (test code = Creatinine 0.5 0.5-1.4 Lvl) [place] 551894-05-07 09:42:00 Test Item Value Reference Range Interpretation Comments Glucose Lvl (test code = Glucose Lvl) 94 70-99 [place] [address]-05-07 09:42:00 Test Item Value Reference Range Interpretation Comments Sodium Lvl (test code = Sodium Lvl) 142 135-145 [place] 551894-05-07 09:42:00 Test Item Value Reference Range Interpretation Comments Calcium Lvl (test code = Calcium Lvl) 8.7 8.5-10.5 [facility]2014-05-07 09:42:00 Test Item Value Reference Range Interpretation Comments Chloride Lvl (test code = Chloride Lvl) 105 95-109 [facility]2014-05-07 09:42:00 Test Item Value Reference Range Interpretation Comments CO2 (test code = CO2) 30 24-32 [facility]2014-05-07 09:42:00 Test Item Value Reference Range Interpretation Comments AGAP (test code = AGAP) 10.8 10.0-20.0 [place] 010214-05-07 09:42:00 Test Item Value Reference Range Interpretation Comments WBC (test code = WBC) 4.4 3.7-10.4 [place] [address]-05-07 09:42:00 Test Item Value Reference Range Interpretation Comments RBC (test code = RBC) 3.80 4.20-5.40 [place] [address]-05-07 09:42:00 Test Item Value Reference Range Interpretation Comments MCH (test code = MCH) 31.1 pg 27.0-31.0 [place] 010214-05-07 09:42:00 Test Item Value Reference Range Interpretation Comments Hgb (test code = Hgb) 11.8 12.0-16.0 [facility]UebtupdSTMNRKMKGU1611-18-81 09:42:00 Test Item Value Reference Range Interpretation Comments Hct (test code = Hct) 34.5 36.0-48.0 [facility]ennialZkzwthwAJAFJZXTGQ6088-93-22 09:42:00 Test Item Value Reference Range Interpretation Comments MCV (test code = MCV) 90.6 81.0-99.0 [facility]ennialJgzxhzoZSKQHTUZXR6317-52-22 09:42:00 Test Item Value Reference Range Interpretation Comments RDW (test code = RDW) 16.3 11.5-14.5 [facility]ennialVvxvwtvWKJEVQICGT0470-83-21 09:42:00 Test Item Value Reference Range Interpretation Comments MCHC (test code = MCHC) 34.3 32.0-36.0 [facility]ennialKkrmnwuLXVKTXJEFS9356-64-04 09:42:00 Test Item Value Reference Range Interpretation Comments Platelet (test code = Platelet) 167 133-450 [facility] CentennialJqxfltwZCPXZSHWOW3536-82-10 09:42:00 Test Item Value Reference Range Interpretation Comments MPV (test code = MPV) 7.9 7.4-10.4 [facility] CentennialAoiossnJNNMEAYFVP7901-00-58 09:42:00 Test Item Value Reference Range Interpretation Comments Eosinophils (test code = 1.6 See_Comment [A utomated message] The Eosinophils) system which ge nerated this result tra nsmitted reference range : <=4.0. The reference r j[place]ica was not used to int erpret this result as normal/abnormal . [facility]ennialOafcrwcRNUJQSLIPI0446-07-97 09:42:00 Test Item Value Reference Range Interpretation Comments Basophils (test code = 0.2 See_Comment [Aut omated message] The Basophils) system which ge nerated this result tra nsmitted reference range : <=1.0. The reference r jamaica was not used to int erpret this result as normal/abnormal . [facility]ennialAqqpyycZQSWIBSHTF8118-17-21 09:42:00 Test Item Value Reference Range Interpretation Comments Segs-Bands # (test code = Segs-Bands #) 2.6 1.5-8.1 [facility] CentennialBlombpcVWTQGTXDUX3073-03-42 09:42:00 Test Item Value Reference Range Interpretation Comments Monocytes (test code = Monocytes) 7.4 2.0-12.0 [place] [address]-05-07 09:42:00 Test Item Value Reference Range Interpretation Comments Lymphocytes # (test code = Lymphocytes 1.3 1.0-5.5 #) [facility]ennialWfupjxuMPLLPHPEPR7011-28-54 09:42:00 Test Item Value Reference Range Interpretation Comments Monocytes # (test code 0.3 See_Comment [Aut omated message] The = Monocytes #) system which generated this result tra nsmitted reference range : <=0.8. The reference r jamaica was not used to int erpret this result as normal/abnormal . [place] [address]-05-07 09:42:00 Test Item Value Reference Range Interpretation Comments Eosinophils # (test code 0.1 See_Comment [A utomated message] The = Eosinophils #) system whic h generated this result tra nsmitted reference range : <=0.5. The reference r jamaica was not used to int erpret this result as normal/abnormal . [place] [address]-05-07 09:42:00 Test Item Value Reference Range Interpretation Comments Basophils # (test code 0.0 See_Comment [Aut omated message] The = Basophils #) system which generated this result tra nsmitted reference range : <=0.2. The reference r jamaica was not used to int erpret this result as normal/abnormal . [place] 010214-05-07 09:42:00 Test Item Value Reference Range Interpretation Comments Lymphocytes (test code = Lymphocytes) 30.7 20.0-40.0 [place] [address]-05-07 09:42:00 Test Item Value Reference Range Interpretation Comments Segs (test code = Segs) 60.1 45.0-75.0 [facility]2014-05-07 09:42:00 Test Item Value Reference Range Interpretation Comments Magnesium Lvl (test code = Magnesium 2.0 1.8-2.4 Lvl) [place] 551894-05-07 09:42:00 Test Item Value Reference Range Interpretation Comments eGFR (test code = eGFR) 113 [facility]2014-05-07 09:42:00 Test Item Value Reference Range Interpretation Comments BUN (test code = BUN) 4 7-22 [place] 551894-05-07 09:42:00 Test Item Value Reference Range Interpretation Comments Potassium Lvl (test code = Potassium 3.8 3.5-5.1 Lvl) [facility]2014-05-07 09:42:00 Test Item Value Reference Range Interpretation Comments Creatinine Lvl (test code = Creatinine 0.5 0.5-1.4 Lvl) [place] 551894-05-07 09:42:00 Test Item Value Reference Range Interpretation Comments Glucose Lvl (test code = Glucose Lvl) 94 70-99 [facility]2014-05-07 09:42:00 Test Item Value Reference Range Interpretation Comments Sodium Lvl (test code = Sodium Lvl) 142 135-145 [facility]2014-05-07 09:42:00 Test Item Value Reference Range Interpretation Comments Calcium Lvl (test code = Calcium Lvl) 8.7 8.5-10.5 [facility]2014-05-07 09:42:00 Test Item Value Reference Range Interpretation Comments Chloride Lvl (test code = Chloride Lvl) 105 95-109 [facility]2014-05-07 09:42:00 Test Item Value Reference Range Interpretation Comments CO2 (test code = CO2) 30 24-32 [facility]2014-05-07 09:42:00 Test Item Value Reference Range Interpretation Comments AGAP (test code = AGAP) 10.8 10.0-20.0 [facility]ennialDcvarxvPLPQRRSBEU2836-56-67 09:42:00 Test Item Value Reference Range Interpretation Comments WBC (test code = WBC) 4.4 3.7-10.4 [facility] CentennialFcczzpeIRAGLKQOWK1349-00-03 09:42:00 Test Item Value Reference Range Interpretation Comments RBC (test code = RBC) 3.80 4.20-5.40 [place] 010214-05-07 09:42:00 Test Item Value Reference Range Interpretation Comments MCH (test code = MCH) 31.1 pg 27.0-31.0 [facility] CentennialCcefrtnGUJPAMEQGU4127-30-93 09:42:00 Test Item Value Reference Range Interpretation Comments Hgb (test code = Hgb) 11.8 12.0-16.0 [facility] CentennialVrldnkaZKWEJTBHKD9781-98-71 09:42:00 Test Item Value Reference Range Interpretation Comments Hct (test code = Hct) 34.5 36.0-48.0 [place] 010214-05-07 09:42:00 Test Item Value Reference Range Interpretation Comments MCV (test code = MCV) 90.6 81.0-99.0 [facility] CentennialRyycifwILKBPKGXMI1626-72-04 09:42:00 Test Item Value Reference Range Interpretation Comments RDW (test code = RDW) 16.3 11.5-14.5 [facility] CentennialJboqsnuJZILATGHLM8246-43-64 09:42:00 Test Item Value Reference Range Interpretation Comments MCHC (test code = MCHC) 34.3 32.0-36.0 [facility] CentennialHhdrrqaQHUHTUBVWX9700-50-79 09:42:00 Test Item Value Reference Range Interpretation Comments Platelet (test code = Platelet) 167 133-450 [facility] CentennialEycmbztKQJLCVVPEZ8356-23-76 09:42:00 Test Item Value Reference Range Interpretation Comments MPV (test code = MPV) 7.9 7.4-10.4 [facility] CentennialNgsyzybRBVTSUEKTZ6459-49-60 09:42:00 Test Item Value Reference Range Interpretation Comments Eosinophils (test code = 1.6 See_Comment [A utomated message] The Eosinophils) system which ge nerated this result tra nsmitted reference range : <=4.0. The reference r jama[place] was not used to int erpret this result as normal/abnormal . [facility] CentennialGxipqhaKDYDDZYIWZ6211-27-40 09:42:00 Test Item Value Reference Range Interpretation Comments Basophils (test code = 0.2 See_Comment [Aut omated message] The Basophils) system which ge nerated this result tra nsmitted reference range : <=1.0. The reference r j[place] was not used to int erpret this result as normal/abnormal . [facility] CentennialMkwszmuMBBJERPLXZ9997-50-02 09:42:00 Test Item Value Reference Range Interpretation Comments Segs-Bands # (test code = Segs-Bands #) 2.6 1.5-8.1 [facility] CentennialXzibgzvLDGECHAMEU6063-59-98 09:42:00 Test Item Value Reference Range Interpretation Comments Monocytes (test code = Monocytes) 7.4 2.0-12.0 [facility] CentennialXeewncjPUOONMLVNV6584-90-54 09:42:00 Test Item Value Reference Range Interpretation Comments Lymphocytes # (test code = Lymphocytes 1.3 1.0-5.5 #) [facility] CentennialErniaugDFZABWUNDA9122-38-98 09:42:00 Test Item Value Reference Range Interpretation Comments Monocytes # (test code 0.3 See_Comment [Aut omated message] The = Monocytes #) system which generated this result tra nsmitted reference range : <=0.8. The reference r j[place] was not used to int erpret this result as normal/abnormal . [facility] CentennialDpdpmakKBLQGICGBN0372-31-23 09:42:00 Test Item Value Reference Range Interpretation Comments Eosinophils # (test code 0.1 See_Comment [A utomated message] The = Eosinophils #) system whic h generated this result tra nsmitted reference range : <=0.5. The reference r j[place] was not used to int erpret this result as normal/abnormal . [facility] CentennialZrmodhoWIXJWHPVXS8473-38-02 09:42:00 Test Item Value Reference Range Interpretation Comments Basophils # (test code 0.0 See_Comment [Aut omated message] The = Basophils #) system which generated this result tra nsmitted reference range : <=0.2. The reference r j[place] was not used to int erpret this result as normal/abnormal . [place] [address]-05-07 09:42:00 Test Item Value Reference Range Interpretation Comments Lymphocytes (test code = Lymphocytes) 30.7 20.0-40.0 [place] [address]-05-07 09:42:00 Test Item Value Reference Range Interpretation Comments Segs (test code = Segs) 60.1 45.0-75.0 [facility]2014-05-07 09:42:00 Test Item Value Reference Range Interpretation Comments Magnesium Lvl (test code = Magnesium 2.0 1.8-2.4 Lvl) [place] 551894-05-07 09:42:00 Test Item Value Reference Range Interpretation Comments eGFR (test code = eGFR) 113 [place] 551894-05-07 09:42:00 Test Item Value Reference Range Interpretation Comments BUN (test code = BUN) 4 7-22 [place] 551894-05-07 09:42:00 Test Item Value Reference Range Interpretation Comments Potassium Lvl (test code = Potassium 3.8 3.5-5.1 Lvl) [facility]2014-05-07 09:42:00 Test Item Value Reference Range Interpretation Comments Creatinine Lvl (test code = Creatinine 0.5 0.5-1.4 Lvl) [facility]2014-05-07 09:42:00 Test Item Value Reference Range Interpretation Comments Glucose Lvl (test code = Glucose Lvl) 94 70-99 [facility]2014-05-07 09:42:00 Test Item Value Reference Range Interpretation Comments Sodium Lvl (test code = Sodium Lvl) 142 135-145 [facility]2014-05-07 09:42:00 Test Item Value Reference Range Interpretation Comments Calcium Lvl (test code = Calcium Lvl) 8.7 8.5-10.5 [place]1894-05-07 09:42:00 Test Item Value Reference Range Interpretation Comments Chloride Lvl (test code = Chloride Lvl) 105 95-109 [facility]2014-05-07 09:42:00 Test Item Value Reference Range Interpretation Comments CO2 (test code = CO2) 30 24-32 [place] 551894-05-07 09:42:00 Test Item Value Reference Range Interpretation Comments AGAP (test code = AGAP) 10.8 10.0-20.0 [place] 010214-05-07 09:42:00 Test Item Value Reference Range Interpretation Comments WBC (test code = WBC) 4.4 3.7-10.4 [facility] CentennialTfgekkjTWXVHKRMLG9812-51-02 09:42:00 Test Item Value Reference Range Interpretation Comments RBC (test code = RBC) 3.80 4.20-5.40 [facility] CentennialZenecmmZOEVJLSIND6971-71-08 09:42:00 Test Item Value Reference Range Interpretation Comments MCH (test code = MCH) 31.1 pg 27.0-31.0 [place] [address]-05-07 09:42:00 Test Item Value Reference Range Interpretation Comments Hgb (test code = Hgb) 11.8 12.0-16.0 [facility] CentennialKipozafQJKVNVPQNS3276-15-11 09:42:00 Test Item Value Reference Range Interpretation Comments Hct (test code = Hct) 34.5 36.0-48.0 [facility] CentennialEoewqyySLCIOYRRCY4705-33-34 09:42:00 Test Item Value Reference Range Interpretation Comments MCV (test code = MCV) 90.6 81.0-99.0 [place] 010214-05-07 09:42:00 Test Item Value Reference Range Interpretation Comments RDW (test code = RDW) 16.3 11.5-14.5 [facility] CentennialKiutwyuYIGXZERSBD0661-98-20 09:42:00 Test Item Value Reference Range Interpretation Comments MCHC (test code = MCHC) 34.3 32.0-36.0 [facility] CentennialFupsskvWJXDSODHZH9778-57-05 09:42:00 Test Item Value Reference Range Interpretation Comments Platelet (test code = Platelet) 167 133-450 [facility] CentennialQfmggulNALLUCDYTT4888-13-87 09:42:00 Test Item Value Reference Range Interpretation Comments MPV (test code = MPV) 7.9 7.4-10.4 [facility] CentennialGbqzatnOGTMXDPMID1923-37-13 09:42:00 Test Item Value Reference Range Interpretation Comments Eosinophils (test code = 1.6 See_Comment [A utomated message] The Eosinophils) system which ge nerated this result tra nsmitted reference range : <=4.0. The reference r j[place] was not used to int erpret this result as normal/abnormal . [facility] CentennialAwbokyoFAJEZFESOZ6546-42-11 09:42:00 Test Item Value Reference Range Interpretation Comments Basophils (test code = 0.2 See_Comment [Aut omated message] The Basophils) system which ge nerated this result tra nsmitted reference range : <=1.0. The reference r j[place]ica was not used to int erpret this result as normal/abnormal . [facility] CentennialBaagqylVFMMEGSFEL4974-60-16 09:42:00 Test Item Value Reference Range Interpretation Comments Segs-Bands # (test code = Segs-Bands #) 2.6 1.5-8.1 [facility] CentennialPkarhukGSYMPIHLIO9809-24-84 09:42:00 Test Item Value Reference Range Interpretation Comments Monocytes (test code = Monocytes) 7.4 2.0-12.0 [facility] CentennialAufveodXPMJFHQBLI7788-64-26 09:42:00 Test Item Value Reference Range Interpretation Comments Lymphocytes # (test code = Lymphocytes 1.3 1.0-5.5 #) [facility] CentennialDxuhtmvQVFEIJVTQV8383-34-17 09:42:00 Test Item Value Reference Range Interpretation Comments Monocytes # (test code 0.3 See_Comment [Aut omated message] The = Monocytes #) system which generated this result tra nsmitted reference range : <=0.8. The reference r j[place] was not used to int erpret this result as normal/abnormal . [facility] CentennialGjgoqysWLGVFFTZCA3935-62-84 09:42:00 Test Item Value Reference Range Interpretation Comments Eosinophils # (test code 0.1 See_Comment [A utomated message] The = Eosinophils #) system whic h generated this result tra nsmitted reference range : <=0.5. The reference r jamaica was not used to int erpret this result as normal/abnormal . [facility] CentennialJcweynuPTZRKYNSJR4073-74-86 09:42:00 Test Item Value Reference Range Interpretation Comments Basophils # (test code 0.0 See_Comment [Aut omated message] The = Basophils #) system which generated this result tra nsmitted reference range : <=0.2. The reference r jamaica was not used to int erpret this result as normal/abnormal . [facility] CentennialRmymwteOFRNZIHRPM1371-08-83 09:42:00 Test Item Value Reference Range Interpretation Comments Lymphocytes (test code = Lymphocytes) 30.7 20.0-40.0 [facility] CentennialJytaccaRRDBQFFXNO9729-92-70 09:42:00 Test Item Value Reference Range Interpretation Comments Segs (test code = Segs) 60.1 45.0-75.0 [facility]2014-05-07 09:42:00 Test Item Value Reference Range Interpretation Comments Magnesium Lvl (test code = Magnesium 2.0 1.8-2.4 Lvl) [facility]2014-05-07 09:42:00 Test Item Value Reference Range Interpretation Comments eGFR (test code = eGFR) 113 [facility]2014-05-07 09:42:00 Test Item Value Reference Range Interpretation Comments BUN (test code = BUN) 4 7-22 [facility]2014-05-07 09:42:00 Test Item Value Reference Range Interpretation Comments Potassium Lvl (test code = Potassium 3.8 3.5-5.1 Lvl) [facility]2014-05-07 09:42:00 Test Item Value Reference Range Interpretation Comments Creatinine Lvl (test code = Creatinine 0.5 0.5-1.4 Lvl) [facility]2014-05-07 09:42:00 Test Item Value Reference Range Interpretation Comments Glucose Lvl (test code = Glucose Lvl) 94 70-99 [facility]2014-05-07 09:42:00 Test Item Value Reference Range Interpretation Comments Sodium Lvl (test code = Sodium Lvl) 142 135-145 [facility]2014-05-07 09:42:00 Test Item Value Reference Range Interpretation Comments Calcium Lvl (test code = Calcium Lvl) 8.7 8.5-10.5 [facility]2014-05-07 09:42:00 Test Item Value Reference Range Interpretation Comments Chloride Lvl (test code = Chloride Lvl) 105 95-109 [facility]2014-05-07 09:42:00 Test Item Value Reference Range Interpretation Comments CO2 (test code = CO2) 30 24-32 [facility]2014-05-07 09:42:00 Test Item Value Reference Range Interpretation Comments AGAP (test code = AGAP) 10.8 10.0-20.0 [facility] CentennialUvpgcysDKNRTOHEHC5266-83-04 09:42:00 Test Item Value Reference Range Interpretation Comments WBC (test code = WBC) 4.4 3.7-10.4 [place] 010214-05-07 09:42:00 Test Item Value Reference Range Interpretation Comments RBC (test code = RBC) 3.80 4.20-5.40 [facility] CentennialZnjwzapUDGCRCXCVK8973-92-79 09:42:00 Test Item Value Reference Range Interpretation Comments MCH (test code = MCH) 31.1 pg 27.0-31.0 [facility] CentennialCcakqkpQYNHBKNFGZ6878-46-44 09:42:00 Test Item Value Reference Range Interpretation Comments Hgb (test code = Hgb) 11.8 12.0-16.0 [facility] CentennialDzuqvzzAOXCWJQBPO7952-29-62 09:42:00 Test Item Value Reference Range Interpretation Comments Hct (test code = Hct) 34.5 36.0-48.0 [facility] CentennialPvjlrjhGEMBUOROXR2623-23-76 09:42:00 Test Item Value Reference Range Interpretation Comments MCV (test code = MCV) 90.6 81.0-99.0 [facility] CentennialVqjvilfCBAMAMHOYS9766-77-87 09:42:00 Test Item Value Reference Range Interpretation Comments RDW (test code = RDW) 16.3 11.5-14.5 [place] 010214-05-07 09:42:00 Test Item Value Reference Range Interpretation Comments MCHC (test code = MCHC) 34.3 32.0-36.0 [facility] CentennialYunxlglZSZVLGNNDJ9513-50-53 09:42:00 Test Item Value Reference Range Interpretation Comments Platelet (test code = Platelet) 167 133-450 [facility] CentennialXnecycaDYXVHMCHIA6220-76-15 09:42:00 Test Item Value Reference Range Interpretation Comments MPV (test code = MPV) 7.9 7.4-10.4 [facility] CentennialZnyyumvZCWMXMBYYS3049-41-60 09:42:00 Test Item Value Reference Range Interpretation Comments Eosinophils (test code = 1.6 See_Comment [A utomated message] The Eosinophils) system which ge nerated this result tra nsmitted reference range : <=4.0. The reference r j[place] was not used to int erpret this result as normal/abnormal . [facility] CentennialFowkszqRCCGJIEHWP8271-26-17 09:42:00 Test Item Value Reference Range Interpretation Comments Basophils (test code = 0.2 See_Comment [Aut omated message] The Basophils) system which ge nerated this result tra nsmitted reference range : <=1.0. The reference r j[place] was not used to int erpret this result as normal/abnormal . [facility] CentennialFmlpjxgUKQRITFLOX8610-04-59 09:42:00 Test Item Value Reference Range Interpretation Comments Segs-Bands # (test code = Segs-Bands #) 2.6 1.5-8.1 [facility] CentennialQalxvjpWHGLRIMTAL9751-45-55 09:42:00 Test Item Value Reference Range Interpretation Comments Monocytes (test code = Monocytes) 7.4 2.0-12.0 [facility] CentennialCdguwgwUCNLICCPHH9528-14-42 09:42:00 Test Item Value Reference Range Interpretation Comments Lymphocytes # (test code = Lymphocytes 1.3 1.0-5.5 #) [facility] CentennialHzrqbzoOUBVLSBBGD8816-68-29 09:42:00 Test Item Value Reference Range Interpretation Comments Monocytes # (test code 0.3 See_Comment [Aut omated message] The = Monocytes #) system which generated this result tra nsmitted reference range : <=0.8. The reference r j[place] was not used to int erpret this result as normal/abnormal . [facility] CentennialGlxorzdPBASDMXHDW7361-42-16 09:42:00 Test Item Value Reference Range Interpretation Comments Eosinophils # (test code 0.1 See_Comment [A utomated message] The = Eosinophils #) system whic h generated this result tra nsmitted reference range : <=0.5. The reference r jamaica was not used to int erpret this result as normal/abnormal . [facility] CentennialBjkjvitWXEOJEDPPM7710-40-07 09:42:00 Test Item Value Reference Range Interpretation Comments Basophils # (test code 0.0 See_Comment [Aut omated message] The = Basophils #) system which generated this result tra nsmitted reference range : <=0.2. The reference r jamaica was not used to int erpret this result as normal/abnormal . [place] 010214-05-07 09:42:00 Test Item Value Reference Range Interpretation Comments Lymphocytes (test code = Lymphocytes) 30.7 20.0-40.0 [place] 010214-05-07 09:42:00 Test Item Value Reference Range Interpretation Comments Segs (test code = Segs) 60.1 45.0-75.0 [facility]2014-05-07 09:42:00 Test Item Value Reference Range Interpretation Comments Magnesium Lvl (test code = Magnesium 2.0 1.8-2.4 Lvl) [facility]2014-05-07 09:42:00 Test Item Value Reference Range Interpretation Comments eGFR (test code = eGFR) 113 [facility]2014-05-07 09:42:00 Test Item Value Reference Range Interpretation Comments BUN (test code = BUN) 4 7-22 [facility]2014-05-07 09:42:00 Test Item Value Reference Range Interpretation Comments Potassium Lvl (test code = Potassium 3.8 3.5-5.1 Lvl) [facility]2014-05-07 09:42:00 Test Item Value Reference Range Interpretation Comments Creatinine Lvl (test code = Creatinine 0.5 0.5-1.4 Lvl) [facility]2014-05-07 09:42:00 Test Item Value Reference Range Interpretation Comments Glucose Lvl (test code = Glucose Lvl) 94 70-99 [facility]2014-05-07 09:42:00 Test Item Value Reference Range Interpretation Comments Sodium Lvl (test code = Sodium Lvl) 142 135-145 [facility]2014-05-07 09:42:00 Test Item Value Reference Range Interpretation Comments Calcium Lvl (test code = Calcium Lvl) 8.7 8.5-10.5 [facility]2014-05-07 09:42:00 Test Item Value Reference Range Interpretation Comments Chloride Lvl (test code = Chloride Lvl) 105 95-109 [facility]2014-05-07 09:42:00 Test Item Value Reference Range Interpretation Comments CO2 (test code = CO2) 30 24-32 [facility]2014-05-07 09:42:00 Test Item Value Reference Range Interpretation Comments AGAP (test code = AGAP) 10.8 10.0-20.0 [facility]ennialKdyagszVSZSENRXBI0908-33-59 09:42:00 Test Item Value Reference Range Interpretation Comments WBC (test code = WBC) 4.4 3.7-10.4 [facility] CentennialXbdanojZOXWSKXJOH5536-19-74 09:42:00 Test Item Value Reference Range Interpretation Comments RBC (test code = RBC) 3.80 4.20-5.40 [place] 010214-05-07 09:42:00 Test Item Value Reference Range Interpretation Comments MCH (test code = MCH) 31.1 pg 27.0-31.0 [facility] CentennialAicyuxnBPJPZUIOUZ2440-09-81 09:42:00 Test Item Value Reference Range Interpretation Comments Hgb (test code = Hgb) 11.8 12.0-16.0 [facility]ennialIlrimffXJHQHJIWQH2508-81-48 09:42:00 Test Item Value Reference Range Interpretation Comments Hct (test code = Hct) 34.5 36.0-48.0 [facility] CentennialYjhijsnBTZWQCQXKB4232-53-33 09:42:00 Test Item Value Reference Range Interpretation Comments MCV (test code = MCV) 90.6 81.0-99.0 [facility]ennialSgkjvmhHWYRRHAHLR0526-01-43 09:42:00 Test Item Value Reference Range Interpretation Comments RDW (test code = RDW) 16.3 11.5-14.5 [place] 010214-05-07 09:42:00 Test Item Value Reference Range Interpretation Comments MCHC (test code = MCHC) 34.3 32.0-36.0 [facility]ennialPcxvbeaOTAMGRJGNR6628-30-44 09:42:00 Test Item Value Reference Range Interpretation Comments Platelet (test code = Platelet) 167 133-450 [facility] CentennialNebwnneUKCSDDGDXK3238-34-84 09:42:00 Test Item Value Reference Range Interpretation Comments MPV (test code = MPV) 7.9 7.4-10.4 [facility] CentennialFxacfcpPMPJXSJGEO8736-29-03 09:42:00 Test Item Value Reference Range Interpretation Comments Eosinophils (test code = 1.6 See_Comment [A utomated message] The Eosinophils) system which ge nerated this result tra nsmitted reference range : <=4.0. The reference r j[place] was not used to int erpret this result as normal/abnormal . [facility] CentennialJkjbrqjYRIJHIGJAB8541-79-26 09:42:00 Test Item Value Reference Range Interpretation Comments Basophils (test code = 0.2 See_Comment [Aut omated message] The Basophils) system which ge nerated this result tra nsmitted reference range : <=1.0. The reference r j[place] was not used to int erpret this result as normal/abnormal . [facility]ennialOqbviihEPMIQYHWEI9457-55-42 09:42:00 Test Item Value Reference Range Interpretation Comments Segs-Bands # (test code = Segs-Bands #) 2.6 1.5-8.1 [facility]ennialOfwsvjbEFHWPXSBUQ5428-36-06 09:42:00 Test Item Value Reference Range Interpretation Comments Monocytes (test code = Monocytes) 7.4 2.0-12.0 [facility]ennialXnmyynhIWFYVMZAXC0227-75-41 09:42:00 Test Item Value Reference Range Interpretation Comments Lymphocytes # (test code = Lymphocytes 1.3 1.0-5.5 #) [facility] CentennialRrfmollLIAJEZRKZP8327-01-00 09:42:00 Test Item Value Reference Range Interpretation Comments Monocytes # (test code 0.3 See_Comment [Aut omated message] The = Monocytes #) system which generated this result tra nsmitted reference range : <=0.8. The reference r j[place] was not used to int erpret this result as normal/abnormal . [facility]ennialMacmhrbOQITYVNVCJ1733-99-21 09:42:00 Test Item Value Reference Range Interpretation Comments Eosinophils # (test code 0.1 See_Comment [A utomated message] The = Eosinophils #) system whic h generated this result tra nsmitted reference range : <=0.5. The reference r j[place] was not used to int erpret this result as normal/abnormal . [facility]ennialEigflqsEKAKKQYEJO0303-26-88 09:42:00 Test Item Value Reference Range Interpretation Comments Basophils # (test code 0.0 See_Comment [Aut omated message] The = Basophils #) system which generated this result tra nsmitted reference range : <=0.2. The reference r j[place] was not used to int erpret this result as normal/abnormal . [facility]ennialOmwuielMENXMBBEVG5708-71-60 09:42:00 Test Item Value Reference Range Interpretation Comments Lymphocytes (test code = Lymphocytes) 30.7 20.0-40.0 [facility] CentennialDirlzbyFQOOKPQBKL7141-62-46 09:42:00 Test Item Value Reference Range Interpretation Comments Segs (test code = Segs) 60.1 45.0-75.0 [place] 551894-05-07 09:42:00 Test Item Value Reference Range Interpretation Comments Magnesium Lvl (test code = Magnesium 2.0 1.8-2.4 Lvl) [facility]2014-05-07 09:42:00 Test Item Value Reference Range Interpretation Comments eGFR (test code = eGFR) 113 [facility]2014-05-07 09:42:00 Test Item Value Reference Range Interpretation Comments BUN (test code = BUN) 4 7-22 [facility]2014-05-07 09:42:00 Test Item Value Reference Range Interpretation Comments Potassium Lvl (test code = Potassium 3.8 3.5-5.1 Lvl) [facility]2014-05-07 09:42:00 Test Item Value Reference Range Interpretation Comments Creatinine Lvl (test code = Creatinine 0.5 0.5-1.4 Lvl) [facility]2014-05-07 09:42:00 Test Item Value Reference Range Interpretation Comments Glucose Lvl (test code = Glucose Lvl) 94 70-99 [facility]2014-05-07 09:42:00 Test Item Value Reference Range Interpretation Comments Sodium Lvl (test code = Sodium Lvl) 142 135-145 [facility]2014-05-07 09:42:00 Test Item Value Reference Range Interpretation Comments Calcium Lvl (test code = Calcium Lvl) 8.7 8.5-10.5 [facility]2014-05-07 09:42:00 Test Item Value Reference Range Interpretation Comments Chloride Lvl (test code = Chloride Lvl) 105 95-109 [facility]2014-05-07 09:42:00 Test Item Value Reference Range Interpretation Comments CO2 (test code = CO2) 30 24-32 [facility]2014-05-07 09:42:00 Test Item Value Reference Range Interpretation Comments AGAP (test code = AGAP) 10.8 10.0-20.0 [facility]ennialYjnvedfELRBVJJLKT4020-39-55 09:42:00 Test Item Value Reference Range Interpretation Comments WBC (test code = WBC) 4.4 3.7-10.4 [facility]ennialOfixuydHCQKORGSNY9019-85-67 09:42:00 Test Item Value Reference Range Interpretation Comments RBC (test code = RBC) 3.80 4.20-5.40 [facility] CentennialIkgjkptZDOEEOTDUX8744-24-18 09:42:00 Test Item Value Reference Range Interpretation Comments MCH (test code = MCH) 31.1 pg 27.0-31.0 [facility] CentennialLfxivdyBHJOCFFRFP9085-54-80 09:42:00 Test Item Value Reference Range Interpretation Comments Hgb (test code = Hgb) 11.8 12.0-16.0 [facility] CentennialDjvuxxpRJCKGSYUTQ6872-58-08 09:42:00 Test Item Value Reference Range Interpretation Comments Hct (test code = Hct) 34.5 36.0-48.0 [facility] CentennialCmzghgyXUEEIRTAXL0986-19-27 09:42:00 Test Item Value Reference Range Interpretation Comments MCV (test code = MCV) 90.6 81.0-99.0 [facility] CentennialIurumhkBWYVKOFIBM2715-35-38 09:42:00 Test Item Value Reference Range Interpretation Comments RDW (test code = RDW) 16.3 11.5-14.5 [facility] CentennialEbfzlviPBKTZIKVAK8104-32-45 09:42:00 Test Item Value Reference Range Interpretation Comments MCHC (test code = MCHC) 34.3 32.0-36.0 [facility] CentennialVirfhgdUSKOGTNPTP9482-89-47 09:42:00 Test Item Value Reference Range Interpretation Comments Platelet (test code = Platelet) 167 133-450 [facility] CentennialRbetfjxGVOSWKLLOV1915-92-15 09:42:00 Test Item Value Reference Range Interpretation Comments MPV (test code = MPV) 7.9 7.4-10.4 [facility] CentennialJvubjzyZIUJPWGZMT3224-36-39 09:42:00 Test Item Value Reference Range Interpretation Comments Eosinophils (test code = 1.6 See_Comment [A utomated message] The Eosinophils) system which ge nerated this result tra nsmitted reference range : <=4.0. The reference r j[place] was not used to int erpret this result as normal/abnormal . [facility] CentennialYtgzajmJJLHTXYXWJ1233-76-50 09:42:00 Test Item Value Reference Range Interpretation Comments Basophils (test code = 0.2 See_Comment [Aut omated message] The Basophils) system which ge nerated this result tra nsmitted reference range : <=1.0. The reference r j[place] was not used to int erpret this result as normal/abnormal . [facility] CentennialHhfqjpcPAPMZGERZD1926-72-85 09:42:00 Test Item Value Reference Range Interpretation Comments Segs-Bands # (test code = Segs-Bands #) 2.6 1.5-8.1 [facility] CentennialYeojzezGJSYCSYVXX0557-37-17 09:42:00 Test Item Value Reference Range Interpretation Comments Monocytes (test code = Monocytes) 7.4 2.0-12.0 [facility] CentennialObhyhbhLIBWPVFQLK4355-89-57 09:42:00 Test Item Value Reference Range Interpretation Comments Lymphocytes # (test code = Lymphocytes 1.3 1.0-5.5 #) [facility] CentennialLkirxveFUIWBNWIGI8054-40-74 09:42:00 Test Item Value Reference Range Interpretation Comments Monocytes # (test code 0.3 See_Comment [Aut omated message] The = Monocytes #) system which generated this result tra nsmitted reference range : <=0.8. The reference r j[place] was not used to int erpret this result as normal/abnormal . [facility] CentennialTzooawmMDGWFZXTQQ0220-44-30 09:42:00 Test Item Value Reference Range Interpretation Comments Eosinophils # (test code 0.1 See_Comment [A utomated message] The = Eosinophils #) system whic h generated this result tra nsmitted reference range : <=0.5. The reference r j[place] was not used to int erpret this result as normal/abnormal . [facility] CentennialWyjksctQEQPJHQMYF4277-43-44 09:42:00 Test Item Value Reference Range Interpretation Comments Basophils # (test code 0.0 See_Comment [Aut omated message] The = Basophils #) system which generated this result tra nsmitted reference range : <=0.2. The reference r j[place] was not used to int erpret this result as normal/abnormal . [facility]ennialHbgljnaUMSUOGODBO9259-19-46 09:42:00 Test Item Value Reference Range Interpretation Comments Lymphocytes (test code = Lymphocytes) 30.7 20.0-40.0 [facility] CentennialAccphdrPYTQZDDOCY5884-54-77 09:42:00 Test Item Value Reference Range Interpretation Comments Segs (test code = Segs) 60.1 45.0-75.0 [facility]2014-05-07 09:42:00 Test Item Value Reference Range Interpretation Comments Magnesium Lvl (test code = Magnesium 2.0 1.8-2.4 Lvl) [facility]2014-05-07 09:42:00 Test Item Value Reference Range Interpretation Comments eGFR (test code = eGFR) 113 [facility]2014-05-07 09:42:00 Test Item Value Reference Range Interpretation Comments BUN (test code = BUN) 4 7-22 [facility]2014-05-07 09:42:00 Test Item Value Reference Range Interpretation Comments Potassium Lvl (test code = Potassium 3.8 3.5-5.1 Lvl) [facility]2014-05-07 09:42:00 Test Item Value Reference Range Interpretation Comments Creatinine Lvl (test code = Creatinine 0.5 0.5-1.4 Lvl) [facility]2014-05-07 09:42:00 Test Item Value Reference Range Interpretation Comments Glucose Lvl (test code = Glucose Lvl) 94 70-99 [facility]2014-05-07 09:42:00 Test Item Value Reference Range Interpretation Comments Sodium Lvl (test code = Sodium Lvl) 142 135-145 [facility]2014-05-07 09:42:00 Test Item Value Reference Range Interpretation Comments Calcium Lvl (test code = Calcium Lvl) 8.7 8.5-10.5 [facility]2014-05-07 09:42:00 Test Item Value Reference Range Interpretation Comments Chloride Lvl (test code = Chloride Lvl) 105 95-109 [place] 551894-05-07 09:42:00 Test Item Value Reference Range Interpretation Comments CO2 (test code = CO2) 30 24-32 [facility]2014-05-07 09:42:00 Test Item Value Reference Range Interpretation Comments AGAP (test code = AGAP) 10.8 10.0-20.0 [facility]ennialKylnpvdNBIGIVQRHZ6283-07-74 09:42:00 Test Item Value Reference Range Interpretation Comments WBC (test code = WBC) 4.4 3.7-10.4 [facility] CentennialRhzjetxNROTUUBANO3269-61-48 09:42:00 Test Item Value Reference Range Interpretation Comments RBC (test code = RBC) 3.80 4.20-5.40 [facility] CentennialSwdjvnjYBVFIDLJCE5914-19-89 09:42:00 Test Item Value Reference Range Interpretation Comments MCH (test code = MCH) 31.1 pg 27.0-31.0 [facility] CentennialDppuhyrOVFOMHOVBT1983-50-32 09:42:00 Test Item Value Reference Range Interpretation Comments Hgb (test code = Hgb) 11.8 12.0-16.0 [facility] CentennialLwpycvpOTVPYSPLTP0385-25-95 09:42:00 Test Item Value Reference Range Interpretation Comments Hct (test code = Hct) 34.5 36.0-48.0 [facility] CentennialMawdzfoCAHEIRCAXW6564-17-47 09:42:00 Test Item Value Reference Range Interpretation Comments MCV (test code = MCV) 90.6 81.0-99.0 [facility] CentennialFwytcibAWRUQCJBZD2656-55-20 09:42:00 Test Item Value Reference Range Interpretation Comments RDW (test code = RDW) 16.3 11.5-14.5 [facility] CentennialNrzptwfTDVLZDNHDD2995-77-04 09:42:00 Test Item Value Reference Range Interpretation Comments MCHC (test code = MCHC) 34.3 32.0-36.0 [facility] CentennialIoeruhyYAMFWJNPTT1102-74-87 09:42:00 Test Item Value Reference Range Interpretation Comments Platelet (test code = Platelet) 167 133-450 [facility] CentennialHeodzlrIKZIPDICQR1025-28-51 09:42:00 Test Item Value Reference Range Interpretation Comments MPV (test code = MPV) 7.9 7.4-10.4 [facility] CentennialZicuvwvYKDXDNOKEE0764-23-91 09:42:00 Test Item Value Reference Range Interpretation Comments Eosinophils (test code = 1.6 See_Comment [A utomated message] The Eosinophils) system which ge nerated this result tra nsmitted reference range : <=4.0. The reference r j[place] was not used to int erpret this result as normal/abnormal . [facility]ennialOueyqnfUNLGYMDXGS3878-85-75 09:42:00 Test Item Value Reference Range Interpretation Comments Basophils (test code = 0.2 See_Comment [Aut omated message] The Basophils) system which ge nerated this result tra nsmitted reference range : <=1.0. The reference r j[place] was not used to int erpret this result as normal/abnormal . [facility] CentennialXodhsotKIHUUYKBOA6526-12-00 09:42:00 Test Item Value Reference Range Interpretation Comments Segs-Bands # (test code = Segs-Bands #) 2.6 1.5-8.1 [place] [address]-05-07 09:42:00 Test Item Value Reference Range Interpretation Comments Monocytes (test code = Monocytes) 7.4 2.0-12.0 [facility] CentennialIdzipqzGIUWYSMXBL2071-56-70 09:42:00 Test Item Value Reference Range Interpretation Comments Lymphocytes # (test code = Lymphocytes 1.3 1.0-5.5 #) [facility] CentennialPmolprmNMOVMOEVSW3839-38-24 09:42:00 Test Item Value Reference Range Interpretation Comments Monocytes # (test code 0.3 See_Comment [Aut omated message] The = Monocytes #) system which generated this result tra nsmitted reference range : <=0.8. The reference r j[place] was not used to int erpret this result as normal/abnormal . [facility]ennialEshsnftKAMZBLJAJT4651-17-49 09:42:00 Test Item Value Reference Range Interpretation Comments Eosinophils # (test code 0.1 See_Comment [A utomated message] The = Eosinophils #) system whic h generated this result tra nsmitted reference range : <=0.5. The reference r j[place] was not used to int erpret this result as normal/abnormal . [facility] CentennialAalydtuSCBWZYGZJF0878-79-23 09:42:00 Test Item Value Reference Range Interpretation Comments Basophils # (test code 0.0 See_Comment [Aut omated message] The = Basophils #) system which generated this result tra nsmitted reference range : <=0.2. The reference r j[place] was not used to int erpret this result as normal/abnormal . [facility]ennialFigxuvaFKQMNMHWKF3158-41-33 09:42:00 Test Item Value Reference Range Interpretation Comments Lymphocytes (test code = Lymphocytes) 30.7 20.0-40.0 [facility]ennialEwqsicbDXDPKBQQTX9042-34-05 09:42:00 Test Item Value Reference Range Interpretation Comments Segs (test code = Segs) 60.1 45.0-75.0 [facility]2014-05-07 09:42:00 Test Item Value Reference Range Interpretation Comments Magnesium Lvl (test code = Magnesium 2.0 1.8-2.4 Lvl) [facility]2014-05-07 09:42:00 Test Item Value Reference Range Interpretation Comments eGFR (test code = eGFR) 113 [facility]2014-05-07 09:42:00 Test Item Value Reference Range Interpretation Comments BUN (test code = BUN) 4 7-22 [facility]2014-05-07 09:42:00 Test Item Value Reference Range Interpretation Comments Potassium Lvl (test code = Potassium 3.8 3.5-5.1 Lvl) [facility]2014-05-07 09:42:00 Test Item Value Reference Range Interpretation Comments Creatinine Lvl (test code = Creatinine 0.5 0.5-1.4 Lvl) [facility]2014-05-07 09:42:00 Test Item Value Reference Range Interpretation Comments Glucose Lvl (test code = Glucose Lvl) 94 70-99 [facility]2014-05-07 09:42:00 Test Item Value Reference Range Interpretation Comments Sodium Lvl (test code = Sodium Lvl) 142 135-145 [facility]2014-05-07 09:42:00 Test Item Value Reference Range Interpretation Comments Calcium Lvl (test code = Calcium Lvl) 8.7 8.5-10.5 [facility]2014-05-07 09:42:00 Test Item Value Reference Range Interpretation Comments Chloride Lvl (test code = Chloride Lvl) 105 95-109 [facility]2014-05-07 09:42:00 Test Item Value Reference Range Interpretation Comments CO2 (test code = CO2) 30 24-32 [facility]2014-05-07 09:42:00 Test Item Value Reference Range Interpretation Comments AGAP (test code = AGAP) 10.8 10.0-20.0 [facility]ennialHbwazscNPLAAIINCT4574-93-20 09:42:00 Test Item Value Reference Range Interpretation Comments WBC (test code = WBC) 4.4 3.7-10.4 [facility] CentennialQryrrahWFOSNRBIXK0221-86-23 09:42:00 Test Item Value Reference Range Interpretation Comments RBC (test code = RBC) 3.80 4.20-5.40 [facility] CentennialQelznhjUYDCBGVCXE1286-16-66 09:42:00 Test Item Value Reference Range Interpretation Comments MCH (test code = MCH) 31.1 pg 27.0-31.0 [facility] CentennialUqwximdYXXEUYFPJP0788-04-29 09:42:00 Test Item Value Reference Range Interpretation Comments Hgb (test code = Hgb) 11.8 12.0-16.0 [facility] CentennialGbuvnwgUIMWBXKERI0001-25-12 09:42:00 Test Item Value Reference Range Interpretation Comments Hct (test code = Hct) 34.5 36.0-48.0 [facility]ennialNwglqikRRJAIXWEBJ5109-90-36 09:42:00 Test Item Value Reference Range Interpretation Comments MCV (test code = MCV) 90.6 81.0-99.0 [facility] CentennialMjoiahrSCBUFUFQDS6979-96-13 09:42:00 Test Item Value Reference Range Interpretation Comments RDW (test code = RDW) 16.3 11.5-14.5 [facility] CentennialCqsvapsLKURRLWZAR7802-54-31 09:42:00 Test Item Value Reference Range Interpretation Comments MCHC (test code = MCHC) 34.3 32.0-36.0 [facility] CentennialLpnycymMHEQUHIOMH1544-84-17 09:42:00 Test Item Value Reference Range Interpretation Comments Platelet (test code = Platelet) 167 133-450 [facility] CentennialQrxmdefSWAVKCARTZ9083-01-15 09:42:00 Test Item Value Reference Range Interpretation Comments MPV (test code = MPV) 7.9 7.4-10.4 [facility] CentennialAuuyngbSEHSMIVPGC1175-35-67 09:42:00 Test Item Value Reference Range Interpretation Comments Eosinophils (test code = 1.6 See_Comment [A utomated message] The Eosinophils) system which ge nerated this result tra nsmitted reference range : <=4.0. The reference r j[place] was not used to int erpret this result as normal/abnormal . [facility]ennialQsqqwjjTPRYXDMVOJ2087-07-01 09:42:00 Test Item Value Reference Range Interpretation Comments Basophils (test code = 0.2 See_Comment [Aut omated message] The Basophils) system which ge nerated this result tra nsmitted reference range : <=1.0. The reference r j[place] was not used to int erpret this result as normal/abnormal . [facility]ennialOjnhyftGLGDMRFITN5436-10-61 09:42:00 Test Item Value Reference Range Interpretation Comments Segs-Bands # (test code = Segs-Bands #) 2.6 1.5-8.1 [facility] CentennialNflwuxrYISBSMJCUU3417-08-70 09:42:00 Test Item Value Reference Range Interpretation Comments Monocytes (test code = Monocytes) 7.4 2.0-12.0 [facility] CentennialDpbhjorTVQFBBPKTP8676-81-57 09:42:00 Test Item Value Reference Range Interpretation Comments Lymphocytes # (test code = Lymphocytes 1.3 1.0-5.5 #) [facility] CentennialWjtleoxFCNWZSYFSD8971-64-33 09:42:00 Test Item Value Reference Range Interpretation Comments Monocytes # (test code 0.3 See_Comment [Aut omated message] The = Monocytes #) system which generated this result tra nsmitted reference range : <=0.8. The reference r j[place] was not used to int erpret this result as normal/abnormal . [facility] CentennialRwmbntaGOZPFSVGMB5370-53-53 09:42:00 Test Item Value Reference Range Interpretation Comments Eosinophils # (test code 0.1 See_Comment [A utomated message] The = Eosinophils #) system [facility] h generated this result tra nsmitted reference range : <=0.5. The reference r j[place] was not used to int erpret this result as normal/abnormal . [facility] CentennialPgervehDDBTAVTMFT2532-18-95 09:42:00 Test Item Value Reference Range Interpretation Comments Basophils # (test code 0.0 See_Comment [Aut omated message] The = Basophils #) system which generated this result tra nsmitted reference range : <=0.2. The reference r j[place] was not used to int erpret this result as normal/abnormal . [facility] CentennialJslkwvmEDTBVVJMPK5268-79-55 09:42:00 Test Item Value Reference Range Interpretation Comments Lymphocytes (test code = Lymphocytes) 30.7 20.0-40.0 [place] 010214-05-07 09:42:00 Test Item Value Reference Range Interpretation Comments Segs (test code = Segs) 60.1 45.0-75.0 [facility]2014-05-07 09:42:00 Test Item Value Reference Range Interpretation Comments Magnesium Lvl (test code = Magnesium 2.0 1.8-2.4 Lvl) [facility]2014-05-07 09:42:00 Test Item Value Reference Range Interpretation Comments eGFR (test code = eGFR) 113 [place] [address]-05-07 09:42:00 Test Item Value Reference Range Interpretation Comments BUN (test code = BUN) 4 7-22 [facility]2014-05-07 09:42:00 Test Item Value Reference Range Interpretation Comments Potassium Lvl (test code = Potassium 3.8 3.5-5.1 Lvl) [place] 551894-05-07 09:42:00 Test Item Value Reference Range Interpretation Comments Creatinine Lvl (test code = Creatinine 0.5 0.5-1.4 Lvl) [place] 551894-05-07 09:42:00 Test Item Value Reference Range Interpretation Comments Glucose Lvl (test code = Glucose Lvl) 94 70-99 [facility]2014-05-07 09:42:00 Test Item Value Reference Range Interpretation Comments Sodium Lvl (test code = Sodium Lvl) 142 135-145 [facility]2014-05-07 09:42:00 Test Item Value Reference Range Interpretation Comments Calcium Lvl (test code = Calcium Lvl) 8.7 8.5-10.5 [facility]2014-05-07 09:42:00 Test Item Value Reference Range Interpretation Comments Chloride Lvl (test code = Chloride Lvl) 105 95-109 [facility]2014-05-07 09:42:00 Test Item Value Reference Range Interpretation Comments CO2 (test code = CO2) 30 24-32 [place] 551894-05-07 09:42:00 Test Item Value Reference Range Interpretation Comments AGAP (test code = AGAP) 10.8 10.0-20.0 [facility]ennialRlwcxoaEJFPJMUETD4196-39-46 09:42:00 Test Item Value Reference Range Interpretation Comments WBC (test code = WBC) 4.4 3.7-10.4 [facility] CentennialYeursrxSDVJSDYLBV3724-05-85 09:42:00 Test Item Value Reference Range Interpretation Comments RBC (test code = RBC) 3.80 4.20-5.40 [facility] CentennialZukvxqwIPAFTNPKMH1233-33-57 09:42:00 Test Item Value Reference Range Interpretation Comments MCH (test code = MCH) 31.1 pg 27.0-31.0 [facility] CentennialGjafbjzOEVEUQDGRA3690-87-17 09:42:00 Test Item Value Reference Range Interpretation Comments Hgb (test code = Hgb) 11.8 12.0-16.0 [facility] CentennialFopleflBJHTASCIQK2121-06-14 09:42:00 Test Item Value Reference Range Interpretation Comments Hct (test code = Hct) 34.5 36.0-48.0 [facility] CentennialCeqyeamDNLDVVBJCT2033-84-12 09:42:00 Test Item Value Reference Range Interpretation Comments MCV (test code = MCV) 90.6 81.0-99.0 [facility] CentennialLrttltbCECTSETIWP7596-88-88 09:42:00 Test Item Value Reference Range Interpretation Comments RDW (test code = RDW) 16.3 11.5-14.5 [facility] CentennialYhwoxtvIHZLZOPNBL3032-28-64 09:42:00 Test Item Value Reference Range Interpretation Comments MCHC (test code = MCHC) 34.3 32.0-36.0 [facility] CentennialCgiueqoVASNFLFEOE7635-04-32 09:42:00 Test Item Value Reference Range Interpretation Comments Platelet (test code = Platelet) 167 133-450 [facility] CentennialPbspaezKWGWWOWMHD0952-99-33 09:42:00 Test Item Value Reference Range Interpretation Comments MPV (test code = MPV) 7.9 7.4-10.4 [facility] CentennialRnflydnVSUGMFPTVT3023-09-74 09:42:00 Test Item Value Reference Range Interpretation Comments Eosinophils (test code = 1.6 See_Comment [A utomated message] The Eosinophils) system which ge nerated this result tra nsmitted reference range : <=4.0. The reference r j[place] was not used to int erpret this result as normal/abnormal . [facility] CentennialKpwydotBVGIEQDVHB0147-66-42 09:42:00 Test Item Value Reference Range Interpretation Comments Basophils (test code = 0.2 See_Comment [Aut omated message] The Basophils) system which ge nerated this result tra nsmitted reference range : <=1.0. The reference r j[place] was not used to int erpret this result as normal/abnormal . [facility] CentennialGuqsdfaRMBEHLCYDL3320-79-78 09:42:00 Test Item Value Reference Range Interpretation Comments Segs-Bands # (test code = Segs-Bands #) 2.6 1.5-8.1 [facility] CentennialVpkxmkxOVREXCUBAG6931-52-33 09:42:00 Test Item Value Reference Range Interpretation Comments Monocytes (test code = Monocytes) 7.4 2.0-12.0 [facility] CentennialRspvousJGJPYTXPFI4965-39-83 09:42:00 Test Item Value Reference Range Interpretation Comments Lymphocytes # (test code = Lymphocytes 1.3 1.0-5.5 #) [facility] CentennialSxtuavnTSGJBGERZT8476-88-33 09:42:00 Test Item Value Reference Range Interpretation Comments Monocytes # (test code 0.3 See_Comment [Aut omated message] The = Monocytes #) system which generated this result tra nsmitted reference range : <=0.8. The reference r j[place] was not used to int erpret this result as normal/abnormal . [facility] CentennialNkqovdmYQUHSFQOEG1261-39-13 09:42:00 Test Item Value Reference Range Interpretation Comments Eosinophils # (test code 0.1 See_Comment [A utomated message] The = Eosinophils #) system whic h generated this result tra nsmitted reference range : <=0.5. The reference r j[place] was not used to int erpret this result as normal/abnormal . [facility] CentennialQptbkqbOVLBEQWFTZ5771-61-42 09:42:00 Test Item Value Reference Range Interpretation Comments Basophils # (test code 0.0 See_Comment [Aut omated message] The = Basophils #) system which generated this result tra nsmitted reference range : <=0.2. The reference r jama[place] was not used to int erpret this result as normal/abnormal . [facility] CentennialGujkcleYOASPKZLZY9961-48-51 09:42:00 Test Item Value Reference Range Interpretation Comments Lymphocytes (test code = Lymphocytes) 30.7 20.0-40.0 [facility]ennialOhhfwjcOGQIMUHHBD2730-05-62 09:42:00 Test Item Value Reference Range Interpretation Comments Segs (test code = Segs) 60.1 45.0-75.0 [place] 551894-05-07 09:42:00 Test Item Value Reference Range Interpretation Comments Magnesium Lvl (test code = Magnesium 2.0 1.8-2.4 Lvl) [facility]2014-05-07 09:42:00 Test Item Value Reference Range Interpretation Comments eGFR (test code = eGFR) 113 [place] [address]-05-07 09:42:00 Test Item Value Reference Range Interpretation Comments BUN (test code = BUN) 4 7-22 [place] [address]-05-07 09:42:00 Test Item Value Reference Range Interpretation Comments Potassium Lvl (test code = Potassium 3.8 3.5-5.1 Lvl) [facility]2014-05-07 09:42:00 Test Item Value Reference Range Interpretation Comments Creatinine Lvl (test code = Creatinine 0.5 0.5-1.4 Lvl) [place] 551894-05-07 09:42:00 Test Item Value Reference Range Interpretation Comments Glucose Lvl (test code = Glucose Lvl) 94 70-99 [place] 551894-05-07 09:42:00 Test Item Value Reference Range Interpretation Comments Sodium Lvl (test code = Sodium Lvl) 142 135-145 [facility]2014-05-07 09:42:00 Test Item Value Reference Range Interpretation Comments Calcium Lvl (test code = Calcium Lvl) 8.7 8.5-10.5 [facility]2014-05-07 09:42:00 Test Item Value Reference Range Interpretation Comments Chloride Lvl (test code = Chloride Lvl) 105 95-109 [facility]2014-05-07 09:42:00 Test Item Value Reference Range Interpretation Comments CO2 (test code = CO2) 30 24-32 [facility]2014-05-07 09:42:00 Test Item Value Reference Range Interpretation Comments AGAP (test code = AGAP) 10.8 10.0-20.0 [facility]ennialYhsgxrlXSRNZBPSTN8354-86-11 09:42:00 Test Item Value Reference Range Interpretation Comments WBC (test code = WBC) 4.4 3.7-10.4 [facility] CentennialIezhnasHPSKZYMIBZ7792-01-01 09:42:00 Test Item Value Reference Range Interpretation Comments RBC (test code = RBC) 3.80 4.20-5.40 [facility] CentennialEvulsgbZHLXRBWUBC5367-22-10 09:42:00 Test Item Value Reference Range Interpretation Comments MCH (test code = MCH) 31.1 pg 27.0-31.0 [facility] CentennialYovraaeAXJLAKKRRN0550-97-24 09:42:00 Test Item Value Reference Range Interpretation Comments Hgb (test code = Hgb) 11.8 12.0-16.0 [facility] CentennialIhjvxqzTZHQVBRFDA7164-39-95 09:42:00 Test Item Value Reference Range Interpretation Comments Hct (test code = Hct) 34.5 36.0-48.0 [facility] CentennialZahsisvYKVXZTBYEI9981-76-82 09:42:00 Test Item Value Reference Range Interpretation Comments MCV (test code = MCV) 90.6 81.0-99.0 [facility] CentennialMzamqbhVNVUXDYFOE5689-66-64 09:42:00 Test Item Value Reference Range Interpretation Comments RDW (test code = RDW) 16.3 11.5-14.5 [facility] CentennialUgbdeefJUQKZBYPWO7074-49-84 09:42:00 Test Item Value Reference Range Interpretation Comments MCHC (test code = MCHC) 34.3 32.0-36.0 [facility] CentennialImaquilXQVMVQWKYV4910-76-58 09:42:00 Test Item Value Reference Range Interpretation Comments Platelet (test code = Platelet) 167 133-450 [facility] CentennialOfqutupMIICLFVOJY7509-28-92 09:42:00 Test Item Value Reference Range Interpretation Comments MPV (test code = MPV) 7.9 7.4-10.4 [facility] CentennialIqngubrUMAQVWBJOX1888-66-97 09:42:00 Test Item Value Reference Range Interpretation Comments Eosinophils (test code = 1.6 See_Comment [A utomated message] The Eosinophils) system which ge nerated this result tra nsmitted reference range : <=4.0. The reference r j[place] was not used to int erpret this result as normal/abnormal . [facility] CentennialIjjgfwnTMPPWKBUFL5319-12-11 09:42:00 Test Item Value Reference Range Interpretation Comments Basophils (test code = 0.2 See_Comment [Aut omated message] The Basophils) system which ge nerated this result tra nsmitted reference range : <=1.0. The reference r j[place] was not used to int erpret this result as normal/abnormal . [facility] CentennialYpccpmhILRJTBBLTT5156-71-49 09:42:00 Test Item Value Reference Range Interpretation Comments Segs-Bands # (test code = Segs-Bands #) 2.6 1.5-8.1 [facility] CentennialKizadhyDHWNEJYCLL9117-04-72 09:42:00 Test Item Value Reference Range Interpretation Comments Monocytes (test code = Monocytes) 7.4 2.0-12.0 [facility] CentennialZzyqkhbUHHZVIKUGS6704-33-32 09:42:00 Test Item Value Reference Range Interpretation Comments Lymphocytes # (test code = Lymphocytes 1.3 1.0-5.5 #) [facility] CentennialRxeqhgnROJJKWMTYT3677-83-27 09:42:00 Test Item Value Reference Range Interpretation Comments Monocytes # (test code 0.3 See_Comment [Aut omated message] The = Monocytes #) system which generated this result tra nsmitted reference range : <=0.8. The reference r j[place] was not used to int erpret this result as normal/abnormal . [facility] CentennialJrhpzdpOYZCCTWYEZ5312-28-73 09:42:00 Test Item Value Reference Range Interpretation Comments Eosinophils # (test code 0.1 See_Comment [A utomated message] The = Eosinophils #) system whic h generated this result tra nsmitted reference range : <=0.5. The reference r j[place] was not used to int erpret this result as normal/abnormal . [facility] CentennialHgvxsjlDPAEFPHJRX8525-86-85 09:42:00 Test Item Value Reference Range Interpretation Comments Basophils # (test code 0.0 See_Comment [Aut omated message] The = Basophils #) system which generated this result tra nsmitted reference range : <=0.2. The reference r j[place] was not used to int erpret this result as normal/abnormal . [facility] CentennialDrhmuvmQJGYYFJOSF4009-06-56 09:42:00 Test Item Value Reference Range Interpretation Comments Lymphocytes (test code = Lymphocytes) 30.7 20.0-40.0 [facility] CentennialGdfwuvgIPALKMRZAF7480-10-90 09:42:00 Test Item Value Reference Range Interpretation Comments Segs (test code = Segs) 60.1 45.0-75.0 [facility]2014-05-07 09:42:00 Test Item Value Reference Range Interpretation Comments Magnesium Lvl (test code = Magnesium 2.0 1.8-2.4 Lvl) [facility]2014-05-07 09:42:00 Test Item Value Reference Range Interpretation Comments eGFR (test code = eGFR) 113 [facility]2014-05-07 09:42:00 Test Item Value Reference Range Interpretation Comments BUN (test code = BUN) 4 7-22 [place] [address]-05-07 09:42:00 Test Item Value Reference Range Interpretation Comments Potassium Lvl (test code = Potassium 3.8 3.5-5.1 Lvl) [place] [address]-05-07 09:42:00 Test Item Value Reference Range Interpretation Comments Creatinine Lvl (test code = Creatinine 0.5 0.5-1.4 Lvl) [place] 551894-05-07 09:42:00 Test Item Value Reference Range Interpretation Comments Glucose Lvl (test code = Glucose Lvl) 94 70-99 [place] 551894-05-07 09:42:00 Test Item Value Reference Range Interpretation Comments Sodium Lvl (test code = Sodium Lvl) 142 135-145 [facility]2014-05-07 09:42:00 Test Item Value Reference Range Interpretation Comments Calcium Lvl (test code = Calcium Lvl) 8.7 8.5-10.5 [facility]2014-05-07 09:42:00 Test Item Value Reference Range Interpretation Comments Chloride Lvl (test code = Chloride Lvl) 105 95-109 [place] 551894-05-07 09:42:00 Test Item Value Reference Range Interpretation Comments CO2 (test code = CO2) 30 24-32 [place] 551894-05-07 09:42:00 Test Item Value Reference Range Interpretation Comments AGAP (test code = AGAP) 10.8 10.0-20.0 [place] [address]-05-07 09:42:00 Test Item Value Reference Range Interpretation Comments WBC (test code = WBC) 4.4 3.7-10.4 [facility]ennialRsxlukdZTRFZIUDDG5461-28-51 09:42:00 Test Item Value Reference Range Interpretation Comments RBC (test code = RBC) 3.80 4.20-5.40 [place] [address]-05-07 09:42:00 Test Item Value Reference Range Interpretation Comments MCH (test code = MCH) 31.1 pg 27.0-31.0 [facility] CentennialJcpmmcnQKANELOSUV2537-58-51 09:42:00 Test Item Value Reference Range Interpretation Comments Hgb (test code = Hgb) 11.8 12.0-16.0 [facility] CentennialXaknaluFVYCFTZOJA9419-82-06 09:42:00 Test Item Value Reference Range Interpretation Comments Hct (test code = Hct) 34.5 36.0-48.0 [facility] CentennialXxazhfmXOYWXHCRIZ6803-93-20 09:42:00 Test Item Value Reference Range Interpretation Comments MCV (test code = MCV) 90.6 81.0-99.0 [facility] CentennialYzxddxrVUJSZQLXLK9980-37-96 09:42:00 Test Item Value Reference Range Interpretation Comments RDW (test code = RDW) 16.3 11.5-14.5 [facility] CentennialFjggltqUWGWTUJFIU1828-16-60 09:42:00 Test Item Value Reference Range Interpretation Comments MCHC (test code = MCHC) 34.3 32.0-36.0 [facility] CentennialNnzacwrYCMNWKQGYH0098-26-71 09:42:00 Test Item Value Reference Range Interpretation Comments Platelet (test code = Platelet) 167 133-450 [facility] CentennialXnplqcsJFANLADUZV6121-00-40 09:42:00 Test Item Value Reference Range Interpretation Comments MPV (test code = MPV) 7.9 7.4-10.4 [facility] CentennialWevbnlpVCAAUKRIYO4445-91-06 09:42:00 Test Item Value Reference Range Interpretation Comments Eosinophils (test code = 1.6 See_Comment [A utomated message] The Eosinophils) system which ge nerated this result tra nsmitted reference range : <=4.0. The reference r j[place] was not used to int erpret this result as normal/abnormal . [facility] CentennialJboatbbFYGWFAXIXC5266-77-91 09:42:00 Test Item Value Reference Range Interpretation Comments Basophils (test code = 0.2 See_Comment [Aut omated message] The Basophils) system which ge nerated this result tra nsmitted reference range : <=1.0. The reference r j[place] was not used to int erpret this result as normal/abnormal . [facility] CentennialOdyoulhNOCPYWWDSN4372-89-17 09:42:00 Test Item Value Reference Range Interpretation Comments Segs-Bands # (test code = Segs-Bands #) 2.6 1.5-8.1 [facility] CentennialIcuacibJRTQFESSKH8761-32-14 09:42:00 Test Item Value Reference Range Interpretation Comments Monocytes (test code = Monocytes) 7.4 2.0-12.0 [facility] CentennialPgawambLVFTPQXEFC0844-40-50 09:42:00 Test Item Value Reference Range Interpretation Comments Lymphocytes # (test code = Lymphocytes 1.3 1.0-5.5 #) [facility] CentennialZgxoexsRWAULEMMMM5864-74-43 09:42:00 Test Item Value Reference Range Interpretation Comments Monocytes # (test code 0.3 See_Comment [Aut omated message] The = Monocytes #) system which generated this result tra nsmitted reference range : <=0.8. The reference r j[place] was not used to int erpret this result as normal/abnormal . [facility] CentennialRzxbyxkLFRIHRXUHL6132-24-72 09:42:00 Test Item Value Reference Range Interpretation Comments Eosinophils # (test code 0.1 See_Comment [A utomated message] The = Eosinophils #) system whic h generated this result tra nsmitted reference range : <=0.5. The reference r j[place] was not used to int erpret this result as normal/abnormal . [facility] CentennialOlcashcMNXZKIEPMT3290-40-82 09:42:00 Test Item Value Reference Range Interpretation Comments Basophils # (test code 0.0 See_Comment [Aut omated message] The = Basophils #) system which generated this result tra nsmitted reference range : <=0.2. The reference r jama[place] was not used to int erpret this result as normal/abnormal . [facility] CentennialWxayzrfOOJEBDKAUI5317-13-54 09:42:00 Test Item Value Reference Range Interpretation Comments Lymphocytes (test code = Lymphocytes) 30.7 20.0-40.0 [facility] CentennialWpdmkzcRXVNIDASEG1875-67-12 09:42:00 Test Item Value Reference Range Interpretation Comments Segs (test code = Segs) 60.1 45.0-75.0 [facility]2014-05-07 09:42:00 Test Item Value Reference Range Interpretation Comments Magnesium Lvl (test code = Magnesium 2.0 1.8-2.4 Lvl) [facility] CentennialUgcduqmBWBDKLNRZA9854-83-42 09:42:00 Test Item Value Reference Range Interpretation Comments WBC (test code = WBC) 4.4 3.7-10.4 [place] 010214-05-07 09:42:00 Test Item Value Reference Range Interpretation Comments RBC (test code = RBC) 3.80 4.20-5.40 [facility] CentennialCpfkvzdAGMPZESBAC4251-59-80 09:42:00 Test Item Value Reference Range Interpretation Comments MCH (test code = MCH) 31.1 pg 27.0-31.0 [facility] CentennialPhhekdbAGUYWHHGJQ5912-19-40 09:42:00 Test Item Value Reference Range Interpretation Comments Hgb (test code = Hgb) 11.8 12.0-16.0 [place] [address]-05-07 09:42:00 Test Item Value Reference Range Interpretation Comments Hct (test code = Hct) 34.5 36.0-48.0 [facility] CentennialThfjzilEXUGSYEHIB9267-51-31 09:42:00 Test Item Value Reference Range Interpretation Comments MCV (test code = MCV) 90.6 81.0-99.0 [facility] CentennialWpstwiwECZQTBFFOG0537-36-02 09:42:00 Test Item Value Reference Range Interpretation Comments RDW (test code = RDW) 16.3 11.5-14.5 [facility] CentennialUmtcwupGCPXNTFQCG3858-02-39 09:42:00 Test Item Value Reference Range Interpretation Comments MCHC (test code = MCHC) 34.3 32.0-36.0 [facility] CentennialRsrzhltVJRMLYXJCQ6426-18-86 09:42:00 Test Item Value Reference Range Interpretation Comments Platelet (test code = Platelet) 167 133-450 [facility] CentennialNwbibleSNHWPHOKNZ4083-44-83 09:42:00 Test Item Value Reference Range Interpretation Comments MPV (test code = MPV) 7.9 7.4-10.4 [facility] CentennialMpamcuwSRLKFNSXOH3680-91-86 09:42:00 Test Item Value Reference Range Interpretation Comments Eosinophils (test code = 1.6 See_Comment [A utomated message] The Eosinophils) system which ge nerated this result tra nsmitted reference range : <=4.0. The reference r j[place] was not used to int erpret this result as normal/abnormal . [facility] CentennialIjsczgbCUCBYJPZJX2454-98-94 09:42:00 Test Item Value Reference Range Interpretation Comments Basophils (test code = 0.2 See_Comment [Aut omated message] The Basophils) system which ge nerated this result tra nsmitted reference range : <=1.0. The reference r j[place] was not used to int erpret this result as normal/abnormal . [facility] CentennialBjgbrwrNPFNUKDZDS8799-90-58 09:42:00 Test Item Value Reference Range Interpretation Comments Segs-Bands # (test code = Segs-Bands #) 2.6 1.5-8.1 [facility] CentennialLyqfqryFLCGETINHQ1642-00-51 09:42:00 Test Item Value Reference Range Interpretation Comments Monocytes (test code = Monocytes) 7.4 2.0-12.0 [facility] CentennialGpimeurHCBFLEJMAC6348-01-07 09:42:00 Test Item Value Reference Range Interpretation Comments Lymphocytes # (test code = Lymphocytes 1.3 1.0-5.5 #) [facility] CentennialBuhwpboQTDHYYJMYS0484-47-68 09:42:00 Test Item Value Reference Range Interpretation Comments Monocytes # (test code 0.3 See_Comment [Aut omated message] The = Monocytes #) system which generated this result tra nsmitted reference range : <=0.8. The reference r j[place] was not used to int erpret this result as normal/abnormal . [facility] CentennialEgozuyeVFNSYFZIFS1082-44-04 09:42:00 Test Item Value Reference Range Interpretation Comments Eosinophils # (test code 0.1 See_Comment [A utomated message] The = Eosinophils #) system whic h generated this result tra nsmitted reference range : <=0.5. The reference r j[place] was not used to int erpret this result as normal/abnormal . [facility] CentennialRgduyruNPKGGZEUEO7429-77-39 09:42:00 Test Item Value Reference Range Interpretation Comments Basophils # (test code 0.0 See_Comment [Aut omated message] The = Basophils #) system which generated this result tra nsmitted reference range : <=0.2. The reference r j[place] was not used to int erpret this result as normal/abnormal . [facility] CentennialVzokjcqPJFZSOUYEC8716-35-50 09:42:00 Test Item Value Reference Range Interpretation Comments Lymphocytes (test code = Lymphocytes) 30.7 20.0-40.0 [facility] CentennialXsbbdceQZSBPWGWSZ9106-70-66 09:42:00 Test Item Value Reference Range Interpretation Comments Segs (test code = Segs) 60.1 45.0-75.0 [facility]2014-05-07 09:42:00 Test Item Value Reference Range Interpretation Comments Magnesium Lvl (test code = Magnesium 2.0 1.8-2.4 Lvl) [facility]2014-05-07 09:42:00 Test Item Value Reference Range Interpretation Comments eGFR (test code = eGFR) 113 [facility]2014-05-07 09:42:00 Test Item Value Reference Range Interpretation Comments BUN (test code = BUN) 4 7-22 [facility]2014-05-07 09:42:00 Test Item Value Reference Range Interpretation Comments Potassium Lvl (test code = Potassium 3.8 3.5-5.1 Lvl) [facility]2014-05-07 09:42:00 Test Item Value Reference Range Interpretation Comments Creatinine Lvl (test code = Creatinine 0.5 0.5-1.4 Lvl) [facility]2014-05-07 09:42:00 Test Item Value Reference Range Interpretation Comments Glucose Lvl (test code = Glucose Lvl) 94 70-99 [facility]2014-05-07 09:42:00 Test Item Value Reference Range Interpretation Comments Sodium Lvl (test code = Sodium Lvl) 142 135-145 [facility]2014-05-07 09:42:00 Test Item Value Reference Range Interpretation Comments Calcium Lvl (test code = Calcium Lvl) 8.7 8.5-10.5 [facility]2014-05-07 09:42:00 Test Item Value Reference Range Interpretation Comments Chloride Lvl (test code = Chloride Lvl) 105 95-109 [facility]2014-05-07 09:42:00 Test Item Value Reference Range Interpretation Comments CO2 (test code = CO2) 30 24-32 [facility]2014-05-07 09:42:00 Test Item Value Reference Range Interpretation Comments AGAP (test code = AGAP) 10.8 10.0-20.0 [facility]2014-05-05 12:13:00 Test Item Value Reference Range Interpretation Comments Magnesium Lvl (test code = Magnesium 1.8 1.8-2.4 Lvl) [facility]2014-05-05 12:13:00 Test Item Value Reference Range Interpretation Comments Phosphorus (test code = Phosphorus) 2.6 2.5-4.5 [place]1894-05-05 12:13:00 Test Item Value Reference Range Interpretation Comments Globulin (test code = Globulin) 2.8 2.0-4.0 [facility]2014-05-05 12:13:00 Test Item Value Reference Range Interpretation Comments A/G Ratio (test code = A/G Ratio) 1.2 0.7-1.6 [place]1894-05-05 12:13:00 Test Item Value Reference Range Interpretation Comments B/C Ratio (test code = B/C Ratio) 10 6-25 [place] 551894-05-05 12:13:00 Test Item Value Reference Range Interpretation Comments AGAP (test code = AGAP) 6.9 10.0-20.0 [facility]2014-05-05 12:13:00 Test Item Value Reference Range Interpretation Comments eGFR (test code = eGFR) 101 [facility]2014-05-05 12:13:00 Test Item Value Reference Range Interpretation Comments Glucose Lvl (test code = Glucose Lvl) 84 70-99 [facility]2014-05-05 12:13:00 Test Item Value Reference Range Interpretation Comments Potassium Lvl (test code = Potassium 3.9 3.5-5.1 Lvl) [facility]2014-05-05 12:13:00 Test Item Value Reference Range Interpretation Comments Sodium Lvl (test code = Sodium Lvl) 141 135-145 [facility]2014-05-05 12:13:00 Test Item Value Reference Range Interpretation Comments Creatinine Lvl (test code = Creatinine 0.7 0.5-1.4 Lvl) [facility]2014-05-05 12:13:00 Test Item Value Reference Range Interpretation Comments BUN (test code = BUN) 7 7-22 [facility]2014-05-05 12:13:00 Test Item Value Reference Range Interpretation Comments Bili Total (test code = Bili Total) 0.3 0.2-1.3 [facility]2014-05-05 12:13:00 Test Item Value Reference Range Interpretation Comments Alk Phos (test code = Alk Phos) 71 39-136 [facility]2014-05-05 12:13:00 Test Item Value Reference Range Interpretation Comments AST (test code = AST) 21 See_Comment [Auto mated message] The system which ge nerated this result transmit ulysses reference range : <=37. The reference range was not used to interpr et this result as sharron l/abnormal. [facility]2014-05-05 12:13:00 Test Item Value Reference Range Interpretation Comments ALT (test code = ALT) 20 See_Comment [Auto mated message] The system which ge nerated this result transmit ulysses reference range : <=65. The reference range was not used to interpr et this result as sharron l/abnormal. [facility]2014-05-05 12:13:00 Test Item Value Reference Range Interpretation Comments Total Protein (test code = Total 6.1 6.4-8.4 Protein) [facility]2014-05-05 12:13:00 Test Item Value Reference Range Interpretation Comments CO2 (test code = CO2) 33 24-32 [facility]2014-05-05 12:13:00 Test Item Value Reference Range Interpretation Comments Albumin Lvl (test code = Albumin Lvl) 3.3 3.5-5.0 [facility]2014-05-05 12:13:00 Test Item Value Reference Range Interpretation Comments Calcium Lvl (test code = Calcium Lvl) 8.4 8.5-10.5 [facility]2014-05-05 12:13:00 Test Item Value Reference Range Interpretation Comments Chloride Lvl (test code = Chloride Lvl) 105 95-109 [facility]UzwstslNMNDSZBSXP1090-68-32 12:13:00 Test Item Value Reference Range Interpretation Comments Basophils # (test code 0.0 See_Comment [Aut omated message] The = Basophils #) system which generated this result tra nsmitted reference range : <=0.2. The reference r jamaica was not used to int erpret this result as normal/abnormal . [facility] CentennialBetnhhlKWTIZPYQNB2899-17-87 12:13:00 Test Item Value Reference Range Interpretation Comments Segs (test code = Segs) 63.5 45.0-75.0 [facility] CentennialMkcgykyBUYHAJHKJX9652-94-09 12:13:00 Test Item Value Reference Range Interpretation Comments Monocytes # (test code 0.3 See_Comment [Aut omated message] The = Monocytes #) system which generated this result tra nsmitted reference range : <=0.8. The reference r jamaica was not used to int erpret this result as normal/abnormal . [facility] CentennialZzdzclzHEVUPNBGSF9116-18-65 12:13:00 Test Item Value Reference Range Interpretation Comments Basophils (test code = 0.2 See_Comment [Aut omated message] The Basophils) system which ge nerated this result tra nsmitted reference range : <=1.0. The reference r jamaica was not used to int erpret this result as normal/abnormal . [facility]ennialQjgzoabSWIWWINHCR9807-62-60 12:13:00 Test Item Value Reference Range Interpretation Comments Lymphocytes # (test code = Lymphocytes 1.5 1.0-5.5 #) [facility] CentennialQggsomjCUHYYSEHDC8738-90-80 12:13:00 Test Item Value Reference Range Interpretation Comments Segs-Bands # (test code = Segs-Bands #) 3.3 1.5-8.1 [facility] CentennialOvrapnlUUFCMXSOZW9733-81-70 12:13:00 Test Item Value Reference Range Interpretation Comments Eosinophils # (test code 0.1 See_Comment [A utomated message] The = Eosinophils #) system whic h generated this result tra nsmitted reference range : <=0.5. The reference r jamaica was not used to int erpret this result as normal/abnormal . [facility] CentennialVkpjwrwFXVXBRJFQR2376-04-34 12:13:00 Test Item Value Reference Range Interpretation Comments Lymphocytes (test code = Lymphocytes) 28.9 20.0-40.0 [facility] CentennialFuotjpsHMBKUGTTPS8803-93-94 12:13:00 Test Item Value Reference Range Interpretation Comments Monocytes (test code = Monocytes) 6.2 2.0-12.0 [facility] CentennialOrdguazFHVHHWJAEE1013-32-07 12:13:00 Test Item Value Reference Range Interpretation Comments Eosinophils (test code = 1.2 See_Comment [A utomated message] The Eosinophils) system which ge nerated this result tra nsmitted reference range : <=4.0. The reference r jamaica was not used to int erpret this result as normal/abnormal . [facility] CentennialPuzevfiOQXWKTKUNF6832-65-83 12:13:00 Test Item Value Reference Range Interpretation Comments MCHC (test code = MCHC) 34.3 32.0-36.0 [facility] CentennialBgnffaeLJUUEVLLPO2507-30-44 12:13:00 Test Item Value Reference Range Interpretation Comments RDW (test code = RDW) 16.5 11.5-14.5 [facility] CentennialFjxevzaIUCIURNAXJ4704-79-22 12:13:00 Test Item Value Reference Range Interpretation Comments MCH (test code = MCH) 31.5 pg 27.0-31.0 [facility] CentennialQpduwbgEMXSBXZKEM2427-72-25 12:13:00 Test Item Value Reference Range Interpretation Comments MCV (test code = MCV) 91.9 81.0-99.0 [facility] CentennialZeipqjmICWBFGTXIW5275-54-95 12:13:00 Test Item Value Reference Range Interpretation Comments Platelet (test code = Platelet) 177 133-450 [facility] CentennialYgeajuhRIYYPKSEQH6840-54-26 12:13:00 Test Item Value Reference Range Interpretation Comments MPV (test code = MPV) 7.9 7.4-10.4 [facility] CentennialJpuxxlkZMSIZESZUN5862-82-39 12:13:00 Test Item Value Reference Range Interpretation Comments RBC (test code = RBC) 3.91 4.20-5.40 [facility] CentennialKxbxxniLWGDSQGYLE2142-78-05 12:13:00 Test Item Value Reference Range Interpretation Comments Hct (test code = Hct) 35.9 36.0-48.0 [facility] CentennialIlfcjhbHSKFLFTWKV0417-69-16 12:13:00 Test Item Value Reference Range Interpretation Comments Hgb (test code = Hgb) 12.3 12.0-16.0 [facility] CentennialRukwefeMTBKWTROZJ5750-74-21 12:13:00 Test Item Value Reference Range Interpretation Comments WBC (test code = WBC) 5.1 3.7-10.4 [facility]2014-05-05 12:13:00 Test Item Value Reference Range Interpretation Comments Magnesium Lvl (test code = Magnesium 1.8 1.8-2.4 Lvl) [facility]2014-05-05 12:13:00 Test Item Value Reference Range Interpretation Comments Phosphorus (test code = Phosphorus) 2.6 2.5-4.5 [facility]2014-05-05 12:13:00 Test Item Value Reference Range Interpretation Comments Globulin (test code = Globulin) 2.8 2.0-4.0 [facility]2014-05-05 12:13:00 Test Item Value Reference Range Interpretation Comments A/G Ratio (test code = A/G Ratio) 1.2 0.7-1.6 [facility]2014-05-05 12:13:00 Test Item Value Reference Range Interpretation Comments B/C Ratio (test code = B/C Ratio) 10 6-25 [place]1894-05-05 12:13:00 Test Item Value Reference Range Interpretation Comments AGAP (test code = AGAP) 6.9 10.0-20.0 [facility]2014-05-05 12:13:00 Test Item Value Reference Range Interpretation Comments eGFR (test code = eGFR) 101 [facility]2014-05-05 12:13:00 Test Item Value Reference Range Interpretation Comments Glucose Lvl (test code = Glucose Lvl) 84 70-99 [facility]2014-05-05 12:13:00 Test Item Value Reference Range Interpretation Comments Potassium Lvl (test code = Potassium 3.9 3.5-5.1 Lvl) [facility]2014-05-05 12:13:00 Test Item Value Reference Range Interpretation Comments Sodium Lvl (test code = Sodium Lvl) 141 135-145 [facility]2014-05-05 12:13:00 Test Item Value Reference Range Interpretation Comments Creatinine Lvl (test code = Creatinine 0.7 0.5-1.4 Lvl) [facility]2014-05-05 12:13:00 Test Item Value Reference Range Interpretation Comments BUN (test code = BUN) 7 7-22 [place]1894-05-05 12:13:00 Test Item Value Reference Range Interpretation Comments Bili Total (test code = Bili Total) 0.3 0.2-1.3 [place]1894-05-05 12:13:00 Test Item Value Reference Range Interpretation Comments Alk Phos (test code = Alk Phos) 71 39-136 [facility]2014-05-05 12:13:00 Test Item Value Reference Range Interpretation Comments AST (test code = AST) 21 See_Comment [Auto mated message] The system which ge nerated this result transmit ulysses reference range : <=37. The reference range was not used to interpr et this result as sharron l/abnormal. [place]1894-05-05 12:13:00 Test Item Value Reference Range Interpretation Comments ALT (test code = ALT) 20 See_Comment [Auto mated message] The system which ge nerated this result transmit ulysses reference range : <=65. The reference range was not used to interpr et this result as sharron l/abnormal. [facility]2014-05-05 12:13:00 Test Item Value Reference Range Interpretation Comments Total Protein (test code = Total 6.1 6.4-8.4 Protein) [facility]2014-05-05 12:13:00 Test Item Value Reference Range Interpretation Comments CO2 (test code = CO2) 33 24-32 [place]1894-05-05 12:13:00 Test Item Value Reference Range Interpretation Comments Albumin Lvl (test code = Albumin Lvl) 3.3 3.5-5.0 [place]1894-05-05 12:13:00 Test Item Value Reference Range Interpretation Comments Calcium Lvl (test code = Calcium Lvl) 8.4 8.5-10.5 [place]1894-05-05 12:13:00 Test Item Value Reference Range Interpretation Comments Chloride Lvl (test code = Chloride Lvl) 105 95-109 [facility] CentennialIubfibdGPCGRJFZFA2162-94-48 12:13:00 Test Item Value Reference Range Interpretation Comments Basophils # (test code 0.0 See_Comment [Aut omated message] The = Basophils #) system which generated this result tra nsmitted reference range : <=0.2. The reference r jamaica was not used to int erpret this result as normal/abnormal . [facility] CentennialTqltiqdBDFLRDGMCQ4569-34-32 12:13:00 Test Item Value Reference Range Interpretation Comments Segs (test code = Segs) 63.5 45.0-75.0 [facility] CentennialHsqapvbMYIKWLBFUI1032-87-89 12:13:00 Test Item Value Reference Range Interpretation Comments Monocytes # (test code 0.3 See_Comment [Aut omated message] The = Monocytes #) system which generated this result tra nsmitted reference range : <=0.8. The reference r jamaica was not used to int erpret this result as normal/abnormal . [facility] CentennialLgoeawhTNZWVLSXXZ3047-63-39 12:13:00 Test Item Value Reference Range Interpretation Comments Basophils (test code = 0.2 See_Comment [Aut omated message] The Basophils) system which ge nerated this result tra nsmitted reference range : <=1.0. The reference r jamaica was not used to int erpret this result as normal/abnormal . [facility] CentennialKlwtkxiKUGSJHNLJA2555-91-93 12:13:00 Test Item Value Reference Range Interpretation Comments Lymphocytes # (test code = Lymphocytes 1.5 1.0-5.5 #) [facility] CentennialKwltliwRIFXGPAUYU5477-48-81 12:13:00 Test Item Value Reference Range Interpretation Comments Segs-Bands # (test code = Segs-Bands #) 3.3 1.5-8.1 [facility] CentennialErlwqhuVTQDPITNVE3604-17-45 12:13:00 Test Item Value Reference Range Interpretation Comments Eosinophils # (test code 0.1 See_Comment [A utomated message] The = Eosinophils #) system whic h generated this result tra nsmitted reference range : <=0.5. The reference r jamaica was not used to int erpret this result as normal/abnormal . [facility] CentennialYpmjehbMVJEQIPZCX7413-26-12 12:13:00 Test Item Value Reference Range Interpretation Comments Lymphocytes (test code = Lymphocytes) 28.9 20.0-40.0 [facility] CentennialIclcttgEUMNIDPCDE9967-78-84 12:13:00 Test Item Value Reference Range Interpretation Comments Monocytes (test code = Monocytes) 6.2 2.0-12.0 [facility] CentennialWzezyvtVBTKISGWYL9748-62-02 12:13:00 Test Item Value Reference Range Interpretation Comments Eosinophils (test code = 1.2 See_Comment [A utomated message] The Eosinophils) system which ge nerated this result tra nsmitted reference range : <=4.0. The reference r jamaica was not used to int erpret this result as normal/abnormal . [facility] CentennialCzfoymfKAHGDFKQDJ1059-84-95 12:13:00 Test Item Value Reference Range Interpretation Comments MCHC (test code = MCHC) 34.3 32.0-36.0 [facility] CentennialMwghffdBMZWFHBOPC0185-40-04 12:13:00 Test Item Value Reference Range Interpretation Comments RDW (test code = RDW) 16.5 11.5-14.5 [facility] CentennialIaphegfKRAJNISDRK8144-07-94 12:13:00 Test Item Value Reference Range Interpretation Comments MCH (test code = MCH) 31.5 pg 27.0-31.0 [facility] CentennialOcgznvdBXOIDJDLZB6628-46-66 12:13:00 Test Item Value Reference Range Interpretation Comments MCV (test code = MCV) 91.9 81.0-99.0 [facility] CentennialDpmyjljOCFBOWWBHK4046-70-58 12:13:00 Test Item Value Reference Range Interpretation Comments Platelet (test code = Platelet) 177 133-450 [facility] CentennialAprzlvnVLZOBQHVPF4400-02-31 12:13:00 Test Item Value Reference Range Interpretation Comments MPV (test code = MPV) 7.9 7.4-10.4 [facility] CentennialRhjwjbwMHMYWOFVLR9363-73-62 12:13:00 Test Item Value Reference Range Interpretation Comments RBC (test code = RBC) 3.91 4.20-5.40 [facility] CentennialBvqyqsqESTWQPTFIF9228-71-35 12:13:00 Test Item Value Reference Range Interpretation Comments Hct (test code = Hct) 35.9 36.0-48.0 [facility] CentennialKprdtxfUPAFPYSPMD5430-40-68 12:13:00 Test Item Value Reference Range Interpretation Comments Hgb (test code = Hgb) 12.3 12.0-16.0 [facility] CentennialFiagyeaILVBQJOIFF4564-62-68 12:13:00 Test Item Value Reference Range Interpretation Comments WBC (test code = WBC) 5.1 3.7-10.4 [facility]2014-05-05 12:13:00 Test Item Value Reference Range Interpretation Comments Magnesium Lvl (test code = Magnesium 1.8 1.8-2.4 Lvl) [facility]2014-05-05 12:13:00 Test Item Value Reference Range Interpretation Comments Phosphorus (test code = Phosphorus) 2.6 2.5-4.5 [facility]2014-05-05 12:13:00 Test Item Value Reference Range Interpretation Comments Globulin (test code = Globulin) 2.8 2.0-4.0 [facility]2014-05-05 12:13:00 Test Item Value Reference Range Interpretation Comments A/G Ratio (test code = A/G Ratio) 1.2 0.7-1.6 [facility]2014-05-05 12:13:00 Test Item Value Reference Range Interpretation Comments B/C Ratio (test code = B/C Ratio) 10 6-25 [facility]2014-05-05 12:13:00 Test Item Value Reference Range Interpretation Comments AGAP (test code = AGAP) 6.9 10.0-20.0 [place]1894-05-05 12:13:00 Test Item Value Reference Range Interpretation Comments eGFR (test code = eGFR) 101 [place]1894-05-05 12:13:00 Test Item Value Reference Range Interpretation Comments Glucose Lvl (test code = Glucose Lvl) 84 70-99 [facility]2014-05-05 12:13:00 Test Item Value Reference Range Interpretation Comments Potassium Lvl (test code = Potassium 3.9 3.5-5.1 Lvl) [place]1894-05-05 12:13:00 Test Item Value Reference Range Interpretation Comments Sodium Lvl (test code = Sodium Lvl) 141 135-145 [place]1894-05-05 12:13:00 Test Item Value Reference Range Interpretation Comments Creatinine Lvl (test code = Creatinine 0.7 0.5-1.4 Lvl) [place]1894-05-05 12:13:00 Test Item Value Reference Range Interpretation Comments BUN (test code = BUN) 7 7-22 [place]1894-05-05 12:13:00 Test Item Value Reference Range Interpretation Comments Bili Total (test code = Bili Total) 0.3 0.2-1.3 [place]1894-05-05 12:13:00 Test Item Value Reference Range Interpretation Comments Alk Phos (test code = Alk Phos) 71 39-136 [place]1894-05-05 12:13:00 Test Item Value Reference Range Interpretation Comments AST (test code = AST) 21 See_Comment [Auto mated message] The system which ge nerated this result transmit ulysses reference range : <=37. The reference range was not used to interpr et this result as sharron l/abnormal. [place]1894-05-05 12:13:00 Test Item Value Reference Range Interpretation Comments ALT (test code = ALT) 20 See_Comment [Auto mated message] The system which ge nerated this result transmit ulysses reference range : <=65. The reference range was not used to interpr et this result as sharron l/abnormal. [facility]2014-05-05 12:13:00 Test Item Value Reference Range Interpretation Comments Total Protein (test code = Total 6.1 6.4-8.4 Protein) [facility]2014-05-05 12:13:00 Test Item Value Reference Range Interpretation Comments CO2 (test code = CO2) 33 24-32 [facility]2014-05-05 12:13:00 Test Item Value Reference Range Interpretation Comments Albumin Lvl (test code = Albumin Lvl) 3.3 3.5-5.0 [facility]2014-05-05 12:13:00 Test Item Value Reference Range Interpretation Comments Calcium Lvl (test code = Calcium Lvl) 8.4 8.5-10.5 [facility]2014-05-05 12:13:00 Test Item Value Reference Range Interpretation Comments Chloride Lvl (test code = Chloride Lvl) 105 95-109 [facility] CentennialZahoqvqIXDUMWEFFA0125-01-97 12:13:00 Test Item Value Reference Range Interpretation Comments Basophils # (test code 0.0 See_Comment [Aut omated message] The = Basophils #) system which generated this result tra nsmitted reference range : <=0.2. The reference r jamaica was not used to int erpret this result as normal/abnormal . [facility] CentennialZlivgnrIRPISUWPHK9669-69-23 12:13:00 Test Item Value Reference Range Interpretation Comments Segs (test code = Segs) 63.5 45.0-75.0 [facility] CentennialUtupenvWUGYGARYCE1808-06-48 12:13:00 Test Item Value Reference Range Interpretation Comments Monocytes # (test code 0.3 See_Comment [Aut omated message] The = Monocytes #) system which generated this result tra nsmitted reference range : <=0.8. The reference r jamaica was not used to int erpret this result as normal/abnormal . [facility] CentennialNekttneUIEZMQOQVZ3752-77-72 12:13:00 Test Item Value Reference Range Interpretation Comments Basophils (test code = 0.2 See_Comment [Aut omated message] The Basophils) system which ge nerated this result tra nsmitted reference range : <=1.0. The reference r jamaica was not used to int erpret this result as normal/abnormal . [facility] CentennialXmupvsoITCRCBNFLO7401-10-88 12:13:00 Test Item Value Reference Range Interpretation Comments Lymphocytes # (test code = Lymphocytes 1.5 1.0-5.5 #) [facility] CentennialRmpcsegUOKIHNSAPY5753-87-65 12:13:00 Test Item Value Reference Range Interpretation Comments Segs-Bands # (test code = Segs-Bands #) 3.3 1.5-8.1 [facility] CentennialUizsiuqPSZJRXGQZV8230-78-24 12:13:00 Test Item Value Reference Range Interpretation Comments Eosinophils # (test code 0.1 See_Comment [A utomated message] The = Eosinophils #) system whic h generated this result tra nsmitted reference range : <=0.5. The reference r jamaica was not used to int erpret this result as normal/abnormal . [facility] CentennialOzvnoucWUPTBMMMYU6100-55-85 12:13:00 Test Item Value Reference Range Interpretation Comments Lymphocytes (test code = Lymphocytes) 28.9 20.0-40.0 [facility] CentennialAqblfeqSXPWKZPLYZ2591-83-81 12:13:00 Test Item Value Reference Range Interpretation Comments Monocytes (test code = Monocytes) 6.2 2.0-12.0 [facility] CentennialPazxymiDZYMRCGRTW8123-80-87 12:13:00 Test Item Value Reference Range Interpretation Comments Eosinophils (test code = 1.2 See_Comment [A utomated message] The Eosinophils) system which ge nerated this result tra nsmitted reference range : <=4.0. The reference r jamaica was not used to int erpret this result as normal/abnormal . [facility] CentennialSkyfxlgRFWXWRBJHV8183-83-23 12:13:00 Test Item Value Reference Range Interpretation Comments MCHC (test code = MCHC) 34.3 32.0-36.0 [facility] CentennialIcimmzlHXTXKOXFIK8834-16-14 12:13:00 Test Item Value Reference Range Interpretation Comments RDW (test code = RDW) 16.5 11.5-14.5 [facility] CentennialErnmppnDLGIYOCJXL8847-13-34 12:13:00 Test Item Value Reference Range Interpretation Comments MCH (test code = MCH) 31.5 pg 27.0-31.0 [facility] [facility]ErpruzlLXVSUCKMNT7355-89-56 12:13:00 Test Item Value Reference Range Interpretation Comments MCV (test code = MCV) 91.9 81.0-99.0 [facility]ennialOaomhmrYPNNSPUASY0618-02-32 12:13:00 Test Item Value Reference Range Interpretation Comments Platelet (test code = Platelet) 177 133-450 [facility] CentennialOebhaqoMPHSSSCXRK4431-99-39 12:13:00 Test Item Value Reference Range Interpretation Comments MPV (test code = MPV) 7.9 7.4-10.4 [facility] CentennialFoqfqgkDIDXKIBLJH3490-40-97 12:13:00 Test Item Value Reference Range Interpretation Comments RBC (test code = RBC) 3.91 4.20-5.40 [facility] CentennialArtiacfDFVKXTBCHJ7737-71-40 12:13:00 Test Item Value Reference Range Interpretation Comments Hct (test code = Hct) 35.9 36.0-48.0 [facility] CentennialRvhigieYWAWPUZVMO9948-90-62 12:13:00 Test Item Value Reference Range Interpretation Comments Hgb (test code = Hgb) 12.3 12.0-16.0 [facility] CentennialMrhjgbgFZLAYSSVUD2328-32-04 12:13:00 Test Item Value Reference Range Interpretation Comments WBC (test code = WBC) 5.1 3.7-10.4 [facility]2014-05-05 12:13:00 Test Item Value Reference Range Interpretation Comments Magnesium Lvl (test code = Magnesium 1.8 1.8-2.4 Lvl) [facility]2014-05-05 12:13:00 Test Item Value Reference Range Interpretation Comments Phosphorus (test code = Phosphorus) 2.6 2.5-4.5 [facility]2014-05-05 12:13:00 Test Item Value Reference Range Interpretation Comments Globulin (test code = Globulin) 2.8 2.0-4.0 [facility]2014-05-05 12:13:00 Test Item Value Reference Range Interpretation Comments A/G Ratio (test code = A/G Ratio) 1.2 0.7-1.6 [facility]2014-05-05 12:13:00 Test Item Value Reference Range Interpretation Comments B/C Ratio (test code = B/C Ratio) 10 6-25 [facility]2014-05-05 12:13:00 Test Item Value Reference Range Interpretation Comments AGAP (test code = AGAP) 6.9 10.0-20.0 [facility]2014-05-05 12:13:00 Test Item Value Reference Range Interpretation Comments eGFR (test code = eGFR) 101 [facility]2014-05-05 12:13:00 Test Item Value Reference Range Interpretation Comments Glucose Lvl (test code = Glucose Lvl) 84 70-99 [facility]2014-05-05 12:13:00 Test Item Value Reference Range Interpretation Comments Potassium Lvl (test code = Potassium 3.9 3.5-5.1 Lvl) [facility]2014-05-05 12:13:00 Test Item Value Reference Range Interpretation Comments Sodium Lvl (test code = Sodium Lvl) 141 135-145 [place] 551894-05-05 12:13:00 Test Item Value Reference Range Interpretation Comments Creatinine Lvl (test code = Creatinine 0.7 0.5-1.4 Lvl) [facility]2014-05-05 12:13:00 Test Item Value Reference Range Interpretation Comments BUN (test code = BUN) 7 7-22 [place] 551894-05-05 12:13:00 Test Item Value Reference Range Interpretation Comments Bili Total (test code = Bili Total) 0.3 0.2-1.3 [facility]2014-05-05 12:13:00 Test Item Value Reference Range Interpretation Comments Alk Phos (test code = Alk Phos) 71 39-136 [facility]2014-05-05 12:13:00 Test Item Value Reference Range Interpretation Comments AST (test code = AST) 21 See_Comment [Auto mated message] The system which ge nerated this result transmit ulysses reference range : <=37. The reference range was not used to interpr et this result as sharron l/abnormal. [place] 551894-05-05 12:13:00 Test Item Value Reference Range Interpretation Comments ALT (test code = ALT) 20 See_Comment [Auto mated message] The system which ge nerated this result transmit ulysses reference range : <=65. The reference range was not used to interpr et this result as sharron l/abnormal. [place] 551894-05-05 12:13:00 Test Item Value Reference Range Interpretation Comments Total Protein (test code = Total 6.1 6.4-8.4 Protein) [facility]2014-05-05 12:13:00 Test Item Value Reference Range Interpretation Comments CO2 (test code = CO2) 33 24-32 [facility]2014-05-05 12:13:00 Test Item Value Reference Range Interpretation Comments Albumin Lvl (test code = Albumin Lvl) 3.3 3.5-5.0 [facility]2014-05-05 12:13:00 Test Item Value Reference Range Interpretation Comments Calcium Lvl (test code = Calcium Lvl) 8.4 8.5-10.5 [facility]2014-05-05 12:13:00 Test Item Value Reference Range Interpretation Comments Chloride Lvl (test code = Chloride Lvl) 105 95-109 [facility] CentennialZchyxnuGNJGDESWLS8014-86-78 12:13:00 Test Item Value Reference Range Interpretation Comments Basophils # (test code 0.0 See_Comment [Aut omated message] The = Basophils #) system which generated this result tra nsmitted reference range : <=0.2. The reference r jama[place] was not used to int erpret this result as normal/abnormal . [facility] CentennialCaliyreVFEIYWFVDF8279-22-25 12:13:00 Test Item Value Reference Range Interpretation Comments Segs (test code = Segs) 63.5 45.0-75.0 [facility] CentennialFqfnrqcLNZBVAVBDC5463-26-68 12:13:00 Test Item Value Reference Range Interpretation Comments Monocytes # (test code 0.3 See_Comment [Aut omated message] The = Monocytes #) system which generated this result tra nsmitted reference range : <=0.8. The reference r jamaica was not used to int erpret this result as normal/abnormal . [facility] CentennialSqueqsaUUCWTNPLGZ6396-31-38 12:13:00 Test Item Value Reference Range Interpretation Comments Basophils (test code = 0.2 See_Comment [Aut omated message] The Basophils) system which ge nerated this result tra nsmitted reference range : <=1.0. The reference r jamaica was not used to int erpret this result as normal/abnormal . [facility] CentennialEcutlzfCKXCFYBFNZ0343-67-18 12:13:00 Test Item Value Reference Range Interpretation Comments Lymphocytes # (test code = Lymphocytes 1.5 1.0-5.5 #) [facility] CentennialYvuqjeqSKVWROYTGQ3184-80-98 12:13:00 Test Item Value Reference Range Interpretation Comments Segs-Bands # (test code = Segs-Bands #) 3.3 1.5-8.1 [facility] CentennialZszulahPRYZVIPJSL7258-92-40 12:13:00 Test Item Value Reference Range Interpretation Comments Eosinophils # (test code 0.1 See_Comment [A utomated message] The = Eosinophils #) system whic h generated this result tra nsmitted reference range : <=0.5. The reference r jamaica was not used to int erpret this result as normal/abnormal . [facility] CentennialEswanqwEKUOUDPACC9898-97-15 12:13:00 Test Item Value Reference Range Interpretation Comments Lymphocytes (test code = Lymphocytes) 28.9 20.0-40.0 [facility] CentennialHlkzthhGZTDYDJZCZ7052-99-22 12:13:00 Test Item Value Reference Range Interpretation Comments Monocytes (test code = Monocytes) 6.2 2.0-12.0 [facility] CentennialFshgwlkBSLPSRIWWM7189-78-50 12:13:00 Test Item Value Reference Range Interpretation Comments Eosinophils (test code = 1.2 See_Comment [A utomated message] The Eosinophils) system which ge nerated this result tra nsmitted reference range : <=4.0. The reference r jamaica was not used to int erpret this result as normal/abnormal . [facility] CentennialQrcpzshNGXLPJXWRF4281-26-43 12:13:00 Test Item Value Reference Range Interpretation Comments MCHC (test code = MCHC) 34.3 32.0-36.0 [facility] CentennialIzxlouqWPVDLVBKUC0053-79-78 12:13:00 Test Item Value Reference Range Interpretation Comments RDW (test code = RDW) 16.5 11.5-14.5 [facility] CentennialAnavdbxHNYSQFNGSH0153-78-48 12:13:00 Test Item Value Reference Range Interpretation Comments MCH (test code = MCH) 31.5 pg 27.0-31.0 [facility] CentennialCncuxjpDTAEVUEEFM6828-15-37 12:13:00 Test Item Value Reference Range Interpretation Comments MCV (test code = MCV) 91.9 81.0-99.0 [facility] CentennialTrmxzklCYWNNHYANL8328-96-08 12:13:00 Test Item Value Reference Range Interpretation Comments Platelet (test code = Platelet) 177 133-450 [facility] CentennialNetuxbjMSZKPCKZJT5628-43-85 12:13:00 Test Item Value Reference Range Interpretation Comments MPV (test code = MPV) 7.9 7.4-10.4 [facility] CentennialDmxcovwCLJQYDWKNI0257-67-13 12:13:00 Test Item Value Reference Range Interpretation Comments RBC (test code = RBC) 3.91 4.20-5.40 [facility] CentennialJmshvgsVHUVURVMLY2786-08-10 12:13:00 Test Item Value Reference Range Interpretation Comments Hct (test code = Hct) 35.9 36.0-48.0 [facility] CentennialIogijlzVNHSOLYXHF9504-84-24 12:13:00 Test Item Value Reference Range Interpretation Comments Hgb (test code = Hgb) 12.3 12.0-16.0 [facility] CentennialWtqqlhkSDFORAUVJD9730-80-97 12:13:00 Test Item Value Reference Range Interpretation Comments WBC (test code = WBC) 5.1 3.7-10.4 [facility]2014-05-05 12:13:00 Test Item Value Reference Range Interpretation Comments Magnesium Lvl (test code = Magnesium 1.8 1.8-2.4 Lvl) [facility]2014-05-05 12:13:00 Test Item Value Reference Range Interpretation Comments Phosphorus (test code = Phosphorus) 2.6 2.5-4.5 [facility]2014-05-05 12:13:00 Test Item Value Reference Range Interpretation Comments Globulin (test code = Globulin) 2.8 2.0-4.0 [facility]2014-05-05 12:13:00 Test Item Value Reference Range Interpretation Comments A/G Ratio (test code = A/G Ratio) 1.2 0.7-1.6 [facility]2014-05-05 12:13:00 Test Item Value Reference Range Interpretation Comments B/C Ratio (test code = B/C Ratio) 10 6-25 [facility]2014-05-05 12:13:00 Test Item Value Reference Range Interpretation Comments AGAP (test code = AGAP) 6.9 10.0-20.0 [facility]2014-05-05 12:13:00 Test Item Value Reference Range Interpretation Comments eGFR (test code = eGFR) 101 [facility]2014-05-05 12:13:00 Test Item Value Reference Range Interpretation Comments Glucose Lvl (test code = Glucose Lvl) 84 70-99 [facility]2014-05-05 12:13:00 Test Item Value Reference Range Interpretation Comments Potassium Lvl (test code = Potassium 3.9 3.5-5.1 Lvl) [facility]2014-05-05 12:13:00 Test Item Value Reference Range Interpretation Comments Sodium Lvl (test code = Sodium Lvl) 141 135-145 [facility]2014-05-05 12:13:00 Test Item Value Reference Range Interpretation Comments Creatinine Lvl (test code = Creatinine 0.7 0.5-1.4 Lvl) [facility]2014-05-05 12:13:00 Test Item Value Reference Range Interpretation Comments BUN (test code = BUN) 7 7-22 [place] 551894-05-05 12:13:00 Test Item Value Reference Range Interpretation Comments Bili Total (test code = Bili Total) 0.3 0.2-1.3 [place] 551894-05-05 12:13:00 Test Item Value Reference Range Interpretation Comments Alk Phos (test code = Alk Phos) 71 39-136 [facility]2014-05-05 12:13:00 Test Item Value Reference Range Interpretation Comments AST (test code = AST) 21 See_Comment [Auto mated message] The system which ge nerated this result transmit ulysses reference range : <=37. The reference range was not used to interpr et this result as sharron l/abnormal. [place] 551894-05-05 12:13:00 Test Item Value Reference Range Interpretation Comments ALT (test code = ALT) 20 See_Comment [Auto mated message] The system which ge nerated this result transmit ulysses reference range : <=65. The reference range was not used to interpr et this result as sharron l/abnormal. [place] 551894-05-05 12:13:00 Test Item Value Reference Range Interpretation Comments Total Protein (test code = Total 6.1 6.4-8.4 Protein) [facility]2014-05-05 12:13:00 Test Item Value Reference Range Interpretation Comments CO2 (test code = CO2) 33 24-32 [place] 551894-05-05 12:13:00 Test Item Value Reference Range Interpretation Comments Albumin Lvl (test code = Albumin Lvl) 3.3 3.5-5.0 [facility]2014-05-05 12:13:00 Test Item Value Reference Range Interpretation Comments Calcium Lvl (test code = Calcium Lvl) 8.4 8.5-10.5 [facility]2014-05-05 12:13:00 Test Item Value Reference Range Interpretation Comments Chloride Lvl (test code = Chloride Lvl) 105 95-109 [facility] CentennialHrkerzfTERPXBAWLO7354-02-83 12:13:00 Test Item Value Reference Range Interpretation Comments Basophils # (test code 0.0 See_Comment [Aut omated message] The = Basophils #) system which generated this result tra nsmitted reference range : <=0.2. The reference r jama[place] was not used to int erpret this result as normal/abnormal . [facility] CentennialJbzhlpqAPVLALBMZW3118-57-84 12:13:00 Test Item Value Reference Range Interpretation Comments Segs (test code = Segs) 63.5 45.0-75.0 [facility] CentennialUpcbctsKNJNNGECIO1178-45-70 12:13:00 Test Item Value Reference Range Interpretation Comments Monocytes # (test code 0.3 See_Comment [Aut omated message] The = Monocytes #) system which generated this result tra nsmitted reference range : <=0.8. The reference r jamaica was not used to int erpret this result as normal/abnormal . [facility] CentennialNekkxhoLDPHJHFRWA4632-60-40 12:13:00 Test Item Value Reference Range Interpretation Comments Basophils (test code = 0.2 See_Comment [Aut omated message] The Basophils) system which ge nerated this result tra nsmitted reference range : <=1.0. The reference r jamaica was not used to int erpret this result as normal/abnormal . [facility] CentennialNdnwlgoCPMDUATBXJ1626-62-16 12:13:00 Test Item Value Reference Range Interpretation Comments Lymphocytes # (test code = Lymphocytes 1.5 1.0-5.5 #) [facility] CentennialPygdsucMZFFRGJLOM8670-52-20 12:13:00 Test Item Value Reference Range Interpretation Comments Segs-Bands # (test code = Segs-Bands #) 3.3 1.5-8.1 [facility] CentennialGqmvcdzIXLTWNBVQZ2198-36-45 12:13:00 Test Item Value Reference Range Interpretation Comments Eosinophils # (test code 0.1 See_Comment [A utomated message] The = Eosinophils #) system whic h generated this result tra nsmitted reference range : <=0.5. The reference r jamaica was not used to int erpret this result as normal/abnormal . [facility] CentennialHxrwrrkNVSWEFOVWT1486-19-65 12:13:00 Test Item Value Reference Range Interpretation Comments Lymphocytes (test code = Lymphocytes) 28.9 20.0-40.0 [facility] CentennialXxrudktLDLFHTSAFW1150-65-11 12:13:00 Test Item Value Reference Range Interpretation Comments Monocytes (test code = Monocytes) 6.2 2.0-12.0 [facility] CentennialTdghvoqEDIXCLYPCO5050-64-90 12:13:00 Test Item Value Reference Range Interpretation Comments Eosinophils (test code = 1.2 See_Comment [A utomated message] The Eosinophils) system which ge nerated this result tra nsmitted reference range : <=4.0. The reference r jamaica was not used to int erpret this result as normal/abnormal . [facility] CentennialOvyduccVOOYSLYCEV3203-84-53 12:13:00 Test Item Value Reference Range Interpretation Comments MCHC (test code = MCHC) 34.3 32.0-36.0 [facility] CentennialHvsyzsbLVVETAQXSX3443-15-46 12:13:00 Test Item Value Reference Range Interpretation Comments RDW (test code = RDW) 16.5 11.5-14.5 [facility] CentennialCwezhvdZUWPXAQRHW8099-54-79 12:13:00 Test Item Value Reference Range Interpretation Comments MCH (test code = MCH) 31.5 pg 27.0-31.0 [facility] CentennialBxdeicfINEGKZEEXD1574-24-74 12:13:00 Test Item Value Reference Range Interpretation Comments MCV (test code = MCV) 91.9 81.0-99.0 [facility] CentennialVltwgkyDHKEDDSZLB8551-12-28 12:13:00 Test Item Value Reference Range Interpretation Comments Platelet (test code = Platelet) 177 133-450 [facility] CentennialVmzxijvLVXPKWPDAI1413-86-13 12:13:00 Test Item Value Reference Range Interpretation Comments MPV (test code = MPV) 7.9 7.4-10.4 [facility] CentennialFvrytxcZMBRFEHJGH5310-08-45 12:13:00 Test Item Value Reference Range Interpretation Comments RBC (test code = RBC) 3.91 4.20-5.40 [facility] CentennialQxzdjdmMSRVZCMNSO2489-73-16 12:13:00 Test Item Value Reference Range Interpretation Comments Hct (test code = Hct) 35.9 36.0-48.0 [facility] CentennialUbfdawjTVTFTXPVRQ8890-16-19 12:13:00 Test Item Value Reference Range Interpretation Comments Hgb (test code = Hgb) 12.3 12.0-16.0 [facility] CentennialFhxktvqDSLGUKLTTA7632-22-70 12:13:00 Test Item Value Reference Range Interpretation Comments WBC (test code = WBC) 5.1 3.7-10.4 [facility]2014-05-05 12:13:00 Test Item Value Reference Range Interpretation Comments Magnesium Lvl (test code = Magnesium 1.8 1.8-2.4 Lvl) [facility]2014-05-05 12:13:00 Test Item Value Reference Range Interpretation Comments Phosphorus (test code = Phosphorus) 2.6 2.5-4.5 [facility]2014-05-05 12:13:00 Test Item Value Reference Range Interpretation Comments Globulin (test code = Globulin) 2.8 2.0-4.0 [facility]2014-05-05 12:13:00 Test Item Value Reference Range Interpretation Comments A/G Ratio (test code = A/G Ratio) 1.2 0.7-1.6 [facility]2014-05-05 12:13:00 Test Item Value Reference Range Interpretation Comments B/C Ratio (test code = B/C Ratio) 10 6-25 [facility]2014-05-05 12:13:00 Test Item Value Reference Range Interpretation Comments AGAP (test code = AGAP) 6.9 10.0-20.0 [facility]2014-05-05 12:13:00 Test Item Value Reference Range Interpretation Comments eGFR (test code = eGFR) 101 [facility]2014-05-05 12:13:00 Test Item Value Reference Range Interpretation Comments Glucose Lvl (test code = Glucose Lvl) 84 70-99 [facility]2014-05-05 12:13:00 Test Item Value Reference Range Interpretation Comments Potassium Lvl (test code = Potassium 3.9 3.5-5.1 Lvl) [facility]2014-05-05 12:13:00 Test Item Value Reference Range Interpretation Comments Sodium Lvl (test code = Sodium Lvl) 141 135-145 [facility]2014-05-05 12:13:00 Test Item Value Reference Range Interpretation Comments Creatinine Lvl (test code = Creatinine 0.7 0.5-1.4 Lvl) [facility]2014-05-05 12:13:00 Test Item Value Reference Range Interpretation Comments BUN (test code = BUN) 7 7-22 [place] 551894-05-05 12:13:00 Test Item Value Reference Range Interpretation Comments Bili Total (test code = Bili Total) 0.3 0.2-1.3 [facility]2014-05-05 12:13:00 Test Item Value Reference Range Interpretation Comments Alk Phos (test code = Alk Phos) 71 39-136 [facility]2014-05-05 12:13:00 Test Item Value Reference Range Interpretation Comments AST (test code = AST) 21 See_Comment [Auto mated message] The system which ge nerated this result transmit ulysses reference range : <=37. The reference range was not used to interpr et this result as sharron l/abnormal. [facility]2014-05-05 12:13:00 Test Item Value Reference Range Interpretation Comments ALT (test code = ALT) 20 See_Comment [Auto mated message] The system which ge nerated this result transmit ulysses reference range : <=65. The reference range was not used to interpr et this result as sharron l/abnormal. [facility]2014-05-05 12:13:00 Test Item Value Reference Range Interpretation Comments Total Protein (test code = Total 6.1 6.4-8.4 Protein) [facility]2014-05-05 12:13:00 Test Item Value Reference Range Interpretation Comments CO2 (test code = CO2) 33 24-32 [facility]2014-05-05 12:13:00 Test Item Value Reference Range Interpretation Comments Albumin Lvl (test code = Albumin Lvl) 3.3 3.5-5.0 [facility]2014-05-05 12:13:00 Test Item Value Reference Range Interpretation Comments Calcium Lvl (test code = Calcium Lvl) 8.4 8.5-10.5 [facility]2014-05-05 12:13:00 Test Item Value Reference Range Interpretation Comments Chloride Lvl (test code = Chloride Lvl) 105 95-109 [facility] CentennialDohwttfQXDQDDPFKD5992-55-70 12:13:00 Test Item Value Reference Range Interpretation Comments Basophils # (test code 0.0 See_Comment [Aut omated message] The = Basophils #) system which generated this result tra nsmitted reference range : <=0.2. The reference r jama[place] was not used to int erpret this result as normal/abnormal . [facility] CentennialIcdrokwNRTMAZERMH5385-73-58 12:13:00 Test Item Value Reference Range Interpretation Comments Segs (test code = Segs) 63.5 45.0-75.0 [facility] CentennialChfnwgbVRPENHIIUZ6964-62-44 12:13:00 Test Item Value Reference Range Interpretation Comments Monocytes # (test code 0.3 See_Comment [Aut omated message] The = Monocytes #) system which generated this result tra nsmitted reference range : <=0.8. The reference r jamaica was not used to int erpret this result as normal/abnormal . [facility] CentennialEjijgjbYRXCFAWLUA6166-85-16 12:13:00 Test Item Value Reference Range Interpretation Comments Basophils (test code = 0.2 See_Comment [Aut omated message] The Basophils) system which ge nerated this result tra nsmitted reference range : <=1.0. The reference r jamaica was not used to int erpret this result as normal/abnormal . [facility] CentennialXhrpqwtTXEGCMPDHK8827-39-27 12:13:00 Test Item Value Reference Range Interpretation Comments Lymphocytes # (test code = Lymphocytes 1.5 1.0-5.5 #) [facility] CentennialByjpbbiVXCFSAVXPN3093-64-41 12:13:00 Test Item Value Reference Range Interpretation Comments Segs-Bands # (test code = Segs-Bands #) 3.3 1.5-8.1 [facility] CentennialNmleepiUATBSBRGIZ6027-41-84 12:13:00 Test Item Value Reference Range Interpretation Comments Eosinophils # (test code 0.1 See_Comment [A utomated message] The = Eosinophils #) system whic h generated this result tra nsmitted reference range : <=0.5. The reference r jamaica was not used to int erpret this result as normal/abnormal . [facility] CentennialEvaeiwyPSGOJEPLZS3762-27-75 12:13:00 Test Item Value Reference Range Interpretation Comments Lymphocytes (test code = Lymphocytes) 28.9 20.0-40.0 [facility] CentennialJipdhvbLRVSSIJJCO4780-08-70 12:13:00 Test Item Value Reference Range Interpretation Comments Monocytes (test code = Monocytes) 6.2 2.0-12.0 [facility] CentennialLlmsuetJGGGNBJYFG8840-87-84 12:13:00 Test Item Value Reference Range Interpretation Comments Eosinophils (test code = 1.2 See_Comment [A utomated message] The Eosinophils) system which ge nerated this result tra nsmitted reference range : <=4.0. The reference r j[place] was not used to int erpret this result as normal/abnormal . [facility]ennialBckegzlRKSTFDTFAF7303-49-82 12:13:00 Test Item Value Reference Range Interpretation Comments MCHC (test code = MCHC) 34.3 32.0-36.0 [facility]ennialEqknqdqWDHFRTXNZJ1360-01-79 12:13:00 Test Item Value Reference Range Interpretation Comments RDW (test code = RDW) 16.5 11.5-14.5 [facility] CentennialFtuljoeNZYCUTQXVB0344-22-89 12:13:00 Test Item Value Reference Range Interpretation Comments MCH (test code = MCH) 31.5 pg 27.0-31.0 [facility] CentennialHycyofcWNDSIRELFT3454-60-35 12:13:00 Test Item Value Reference Range Interpretation Comments MCV (test code = MCV) 91.9 81.0-99.0 [facility]ennialEjwtqamAWVVWNMUSX0481-86-98 12:13:00 Test Item Value Reference Range Interpretation Comments Platelet (test code = Platelet) 177 133-450 [facility] CentennialXfqrjguEDPYCGFMCF7515-60-62 12:13:00 Test Item Value Reference Range Interpretation Comments MPV (test code = MPV) 7.9 7.4-10.4 [facility] CentennialVomyndrSNUTEOPUIS4124-05-36 12:13:00 Test Item Value Reference Range Interpretation Comments RBC (test code = RBC) 3.91 4.20-5.40 [facility]ennialYnxkbmxAFEUYHBKWN3165-87-02 12:13:00 Test Item Value Reference Range Interpretation Comments Hct (test code = Hct) 35.9 36.0-48.0 [facility] CentennialViknwouQXGMTGYWNU3489-60-68 12:13:00 Test Item Value Reference Range Interpretation Comments Hgb (test code = Hgb) 12.3 12.0-16.0 [facility] 12:13:00 Test Item Value Reference Range Interpretation Comments WBC (test code = WBC) 5.1 3.7-10.4 [facility]2014-05-05 12:13:00 Test Item Value Reference Range Interpretation Comments Magnesium Lvl (test code = Magnesium 1.8 1.8-2.4 Lvl) [facility]2014-05-05 12:13:00 Test Item Value Reference Range Interpretation Comments Phosphorus (test code = Phosphorus) 2.6 2.5-4.5 [facility]2014-05-05 12:13:00 Test Item Value Reference Range Interpretation Comments Globulin (test code = Globulin) 2.8 2.0-4.0 [facility]2014-05-05 12:13:00 Test Item Value Reference Range Interpretation Comments A/G Ratio (test code = A/G Ratio) 1.2 0.7-1.6 [facility]2014-05-05 12:13:00 Test Item Value Reference Range Interpretation Comments B/C Ratio (test code = B/C Ratio) 10 6-25 [facility]2014-05-05 12:13:00 Test Item Value Reference Range Interpretation Comments AGAP (test code = AGAP) 6.9 10.0-20.0 [facility]2014-05-05 12:13:00 Test Item Value Reference Range Interpretation Comments eGFR (test code = eGFR) 101 [facility]2014-05-05 12:13:00 Test Item Value Reference Range Interpretation Comments Glucose Lvl (test code = Glucose Lvl) 84 70-99 [facility]2014-05-05 12:13:00 Test Item Value Reference Range Interpretation Comments Potassium Lvl (test code = Potassium 3.9 3.5-5.1 Lvl) [facility]2014-05-05 12:13:00 Test Item Value Reference Range Interpretation Comments Sodium Lvl (test code = Sodium Lvl) 141 135-145 [facility]2014-05-05 12:13:00 Test Item Value Reference Range Interpretation Comments Creatinine Lvl (test code = Creatinine 0.7 0.5-1.4 Lvl) [facility]2014-05-05 12:13:00 Test Item Value Reference Range Interpretation Comments BUN (test code = BUN) 7 7-22 [facility]2014-05-05 12:13:00 Test Item Value Reference Range Interpretation Comments Bili Total (test code = Bili Total) 0.3 0.2-1.3 [facility]2014-05-05 12:13:00 Test Item Value Reference Range Interpretation Comments Alk Phos (test code = Alk Phos) 71 39-136 [facility]2014-05-05 12:13:00 Test Item Value Reference Range Interpretation Comments AST (test code = AST) 21 See_Comment [Auto mated message] The system which ge nerated this result transmit ulysses reference range : <=37. The reference range was not used to interpr et this result as sharron l/abnormal. [place] 551894-05-05 12:13:00 Test Item Value Reference Range Interpretation Comments ALT (test code = ALT) 20 See_Comment [Auto mated message] The system which ge nerated this result transmit ulysses reference range : <=65. The reference range was not used to interpr et this result as sharron l/abnormal. [facility]2014-05-05 12:13:00 Test Item Value Reference Range Interpretation Comments Total Protein (test code = Total 6.1 6.4-8.4 Protein) [facility]2014-05-05 12:13:00 Test Item Value Reference Range Interpretation Comments CO2 (test code = CO2) 33 24-32 [facility]2014-05-05 12:13:00 Test Item Value Reference Range Interpretation Comments Albumin Lvl (test code = Albumin Lvl) 3.3 3.5-5.0 [facility]2014-05-05 12:13:00 Test Item Value Reference Range Interpretation Comments Calcium Lvl (test code = Calcium Lvl) 8.4 8.5-10.5 [facility]2014-05-05 12:13:00 Test Item Value Reference Range Interpretation Comments Chloride Lvl (test code = Chloride Lvl) 105 95-109 [facility]ennialMwheoziLASEUWQORM4024-77-34 12:13:00 Test Item Value Reference Range Interpretation Comments Basophils # (test code 0.0 See_Comment [Aut omated message] The = Basophils #) system which generated this result tra nsmitted reference range : <=0.2. The reference r jama[place] was not used to int erpret this result as normal/abnormal . [facility]ennialKhvxuokKRUZUKJNTY8375-67-96 12:13:00 Test Item Value Reference Range Interpretation Comments Segs (test code = Segs) 63.5 45.0-75.0 [facility]ennialPboxdtdJFQAJSXFHC6489-62-08 12:13:00 Test Item Value Reference Range Interpretation Comments Monocytes # (test code 0.3 See_Comment [Aut omated message] The = Monocytes #) system which generated this result tra nsmitted reference range : <=0.8. The reference r jama[place] was not used to int erpret this result as normal/abnormal . [facility]ennialSrqpadqWTBNZWQQMM3605-98-02 12:13:00 Test Item Value Reference Range Interpretation Comments Basophils (test code = 0.2 See_Comment [Aut omated message] The Basophils) system which ge nerated this result tra nsmitted reference range : <=1.0. The reference r jama[place] was not used to int erpret this result as normal/abnormal . [facility]ennialXkqmfmgBYNIBKEMWL5709-09-11 12:13:00 Test Item Value Reference Range Interpretation Comments Lymphocytes # (test code = Lymphocytes 1.5 1.0-5.5 #) [facility] CentennialZfgtwdgOGKWFSBWIS5531-07-75 12:13:00 Test Item Value Reference Range Interpretation Comments Segs-Bands # (test code = Segs-Bands #) 3.3 1.5-8.1 [facility] CentennialZxptwyvNIFWMRDVMA3811-41-30 12:13:00 Test Item Value Reference Range Interpretation Comments Eosinophils # (test code 0.1 See_Comment [A utomated message] The = Eosinophils #) system whic h generated this result tra nsmitted reference range : <=0.5. The reference r jamaica was not used to int erpret this result as normal/abnormal . [facility]ennialAsbwkxeJNAHQIENRK0136-28-04 12:13:00 Test Item Value Reference Range Interpretation Comments Lymphocytes (test code = Lymphocytes) 28.9 20.0-40.0 [facility] CentennialCcugvbdIMAGZIAVML9851-07-07 12:13:00 Test Item Value Reference Range Interpretation Comments Monocytes (test code = Monocytes) 6.2 2.0-12.0 [facility] CentennialTlenhcvEXLQITXFYS0470-06-05 12:13:00 Test Item Value Reference Range Interpretation Comments Eosinophils (test code = 1.2 See_Comment [A utomated message] The Eosinophils) system which ge nerated this result tra nsmitted reference range : <=4.0. The reference r jamaica was not used to int erpret this result as normal/abnormal . [facility] CentennialArzfyquDJNMOLZFEH6372-98-41 12:13:00 Test Item Value Reference Range Interpretation Comments MCHC (test code = MCHC) 34.3 32.0-36.0 [facility] CentennialCowlvcgQNLEHHEEBH4151-48-05 12:13:00 Test Item Value Reference Range Interpretation Comments RDW (test code = RDW) 16.5 11.5-14.5 [facility] CentennialUaxdquwPLARCMJURS1473-89-38 12:13:00 Test Item Value Reference Range Interpretation Comments MCH (test code = MCH) 31.5 pg 27.0-31.0 [facility]ennialAjevdpfBFMTJXXWOZ1141-04-93 12:13:00 Test Item Value Reference Range Interpretation Comments MCV (test code = MCV) 91.9 81.0-99.0 [facility] CentennialJiumqqiOIZOPAFUVM2141-42-65 12:13:00 Test Item Value Reference Range Interpretation Comments Platelet (test code = Platelet) 177 133-450 [facility]ennialEjgyaigUEMRPIEOHZ2591-42-10 12:13:00 Test Item Value Reference Range Interpretation Comments MPV (test code = MPV) 7.9 7.4-10.4 [facility] CentennialPhiyuryKPQRZPBTFR4416-80-76 12:13:00 Test Item Value Reference Range Interpretation Comments RBC (test code = RBC) 3.91 4.20-5.40 [facility] CentennialHtuswdzNRECBFFTDR2397-25-54 12:13:00 Test Item Value Reference Range Interpretation Comments Hct (test code = Hct) 35.9 36.0-48.0 [facility] CentennialSwzkpyoSGMGZZDKMH6101-02-40 12:13:00 Test Item Value Reference Range Interpretation Comments Hgb (test code = Hgb) 12.3 12.0-16.0 [facility] CentennialVnbgjpaTTPGNBUIND6673-92-53 12:13:00 Test Item Value Reference Range Interpretation Comments WBC (test code = WBC) 5.1 3.7-10.4 [facility]2014-05-05 12:13:00 Test Item Value Reference Range Interpretation Comments Magnesium Lvl (test code = Magnesium 1.8 1.8-2.4 Lvl) [facility]2014-05-05 12:13:00 Test Item Value Reference Range Interpretation Comments Phosphorus (test code = Phosphorus) 2.6 2.5-4.5 [facility]2014-05-05 12:13:00 Test Item Value Reference Range Interpretation Comments Globulin (test code = Globulin) 2.8 2.0-4.0 [facility]2014-05-05 12:13:00 Test Item Value Reference Range Interpretation Comments A/G Ratio (test code = A/G Ratio) 1.2 0.7-1.6 [facility]2014-05-05 12:13:00 Test Item Value Reference Range Interpretation Comments B/C Ratio (test code = B/C Ratio) 10 6-25 [facility]2014-05-05 12:13:00 Test Item Value Reference Range Interpretation Comments AGAP (test code = AGAP) 6.9 10.0-20.0 [facility]2014-05-05 12:13:00 Test Item Value Reference Range Interpretation Comments eGFR (test code = eGFR) 101 [facility]2014-05-05 12:13:00 Test Item Value Reference Range Interpretation Comments Glucose Lvl (test code = Glucose Lvl) 84 70-99 [facility]2014-05-05 12:13:00 Test Item Value Reference Range Interpretation Comments Potassium Lvl (test code = Potassium 3.9 3.5-5.1 Lvl) [facility]2014-05-05 12:13:00 Test Item Value Reference Range Interpretation Comments Sodium Lvl (test code = Sodium Lvl) 141 135-145 [facility]2014-05-05 12:13:00 Test Item Value Reference Range Interpretation Comments Creatinine Lvl (test code = Creatinine 0.7 0.5-1.4 Lvl) [facility]2014-05-05 12:13:00 Test Item Value Reference Range Interpretation Comments BUN (test code = BUN) 7 7-22 [place] 551894-05-05 12:13:00 Test Item Value Reference Range Interpretation Comments Bili Total (test code = Bili Total) 0.3 0.2-1.3 [facility]2014-05-05 12:13:00 Test Item Value Reference Range Interpretation Comments Alk Phos (test code = Alk Phos) 71 39-136 [facility]2014-05-05 12:13:00 Test Item Value Reference Range Interpretation Comments AST (test code = AST) 21 See_Comment [Auto mated message] The system which ge nerated this result transmit ulysses reference range : <=37. The reference range was not used to interpr et this result as sharron l/abnormal. [place] 551894-05-05 12:13:00 Test Item Value Reference Range Interpretation Comments ALT (test code = ALT) 20 See_Comment [Auto mated message] The system which ge nerated this result transmit luysses reference range : <=65. The reference range was not used to interpr et this result as sharron l/abnormal. [place] 551894-05-05 12:13:00 Test Item Value Reference Range Interpretation Comments Total Protein (test code = Total 6.1 6.4-8.4 Protein) [facility]2014-05-05 12:13:00 Test Item Value Reference Range Interpretation Comments CO2 (test code = CO2) 33 24-32 [facility]2014-05-05 12:13:00 Test Item Value Reference Range Interpretation Comments Albumin Lvl (test code = Albumin Lvl) 3.3 3.5-5.0 [facility]2014-05-05 12:13:00 Test Item Value Reference Range Interpretation Comments Calcium Lvl (test code = Calcium Lvl) 8.4 8.5-10.5 [facility]2014-05-05 12:13:00 Test Item Value Reference Range Interpretation Comments Chloride Lvl (test code = Chloride Lvl) 105 95-109 [facility]ennialGtnympuWKJHYPDNPV0350-32-08 12:13:00 Test Item Value Reference Range Interpretation Comments Basophils # (test code 0.0 See_Comment [Aut omated message] The = Basophils #) system which generated this result tra nsmitted reference range : <=0.2. The reference r jamaica was not used to int erpret this result as normal/abnormal . [facility] CentennialDztspqgZYGHGGTXXQ2737-16-40 12:13:00 Test Item Value Reference Range Interpretation Comments Segs (test code = Segs) 63.5 45.0-75.0 [facility]ennialPkifgtnAWYRENBLOT8766-82-07 12:13:00 Test Item Value Reference Range Interpretation Comments Monocytes # (test code 0.3 See_Comment [Aut omated message] The = Monocytes #) system which generated this result tra nsmitted reference range : <=0.8. The reference r jamaica was not used to int erpret this result as normal/abnormal . [facility] CentennialRyfduioHUMHBYCTMI0972-82-08 12:13:00 Test Item Value Reference Range Interpretation Comments Basophils (test code = 0.2 See_Comment [Aut omated message] The Basophils) system which ge nerated this result tra nsmitted reference range : <=1.0. The reference r jamaica was not used to int erpret this result as normal/abnormal . [facility]ennialMyobhhnCQVBBBTANZ3463-85-86 12:13:00 Test Item Value Reference Range Interpretation Comments Lymphocytes # (test code = Lymphocytes 1.5 1.0-5.5 #) [facility] CentennialJvzeipfLAFCCBILJB5138-24-16 12:13:00 Test Item Value Reference Range Interpretation Comments Segs-Bands # (test code = Segs-Bands #) 3.3 1.5-8.1 [facility] CentennialVqzupioKYQJTAQOAG9557-38-50 12:13:00 Test Item Value Reference Range Interpretation Comments Eosinophils # (test code 0.1 See_Comment [A utomated message] The = Eosinophils #) system whic h generated this result tra nsmitted reference range : <=0.5. The reference r jamaica was not used to int erpret this result as normal/abnormal . [facility] CentennialMsbffykTBNFCIEVUN6015-71-43 12:13:00 Test Item Value Reference Range Interpretation Comments Lymphocytes (test code = Lymphocytes) 28.9 20.0-40.0 [facility]ennialPgvdkeoEFAIAKDUCY3720-27-01 12:13:00 Test Item Value Reference Range Interpretation Comments Monocytes (test code = Monocytes) 6.2 2.0-12.0 [facility] CentennialGakqbvhZJPAGGEVFX2508-60-45 12:13:00 Test Item Value Reference Range Interpretation Comments Eosinophils (test code = 1.2 See_Comment [A utomated message] The Eosinophils) system which ge nerated this result tra nsmitted reference range : <=4.0. The reference r jamaica was not used to int erpret this result as normal/abnormal . [facility]ennialSgnhntvSRLHIONADF7335-76-79 12:13:00 Test Item Value Reference Range Interpretation Comments MCHC (test code = MCHC) 34.3 32.0-36.0 [facility] CentennialSjgbhmaRPDAHBCFEY0161-29-17 12:13:00 Test Item Value Reference Range Interpretation Comments RDW (test code = RDW) 16.5 11.5-14.5 [facility] CentennialGduueoqBJUKMXUHLX1831-74-64 12:13:00 Test Item Value Reference Range Interpretation Comments MCH (test code = MCH) 31.5 pg 27.0-31.0 [facility] CentennialOneyezoKFXSXBJUBS7062-23-54 12:13:00 Test Item Value Reference Range Interpretation Comments MCV (test code = MCV) 91.9 81.0-99.0 [facility]ennialVckjkszJBSYYWBKDJ5689-92-91 12:13:00 Test Item Value Reference Range Interpretation Comments Platelet (test code = Platelet) 177 133-450 [facility] CentennialWoztupwMIMBKZETGA1582-68-65 12:13:00 Test Item Value Reference Range Interpretation Comments MPV (test code = MPV) 7.9 7.4-10.4 [facility] CentennialSxsxqhiOSEEPHOEDG6226-72-31 12:13:00 Test Item Value Reference Range Interpretation Comments RBC (test code = RBC) 3.91 4.20-5.40 [facility] CentennialQmiqownEOICYEUTAB6292-86-98 12:13:00 Test Item Value Reference Range Interpretation Comments Hct (test code = Hct) 35.9 36.0-48.0 [facility] CentennialBleuhgjGIHSEHIOJR1241-56-67 12:13:00 Test Item Value Reference Range Interpretation Comments Hgb (test code = Hgb) 12.3 12.0-16.0 [facility] CentennialJtgxrqpDNDYPSOVZX7078-91-48 12:13:00 Test Item Value Reference Range Interpretation Comments WBC (test code = WBC) 5.1 3.7-10.4 [facility]2014-05-05 12:13:00 Test Item Value Reference Range Interpretation Comments Magnesium Lvl (test code = Magnesium 1.8 1.8-2.4 Lvl) [facility]2014-05-05 12:13:00 Test Item Value Reference Range Interpretation Comments Phosphorus (test code = Phosphorus) 2.6 2.5-4.5 [facility]2014-05-05 12:13:00 Test Item Value Reference Range Interpretation Comments Globulin (test code = Globulin) 2.8 2.0-4.0 [facility]2014-05-05 12:13:00 Test Item Value Reference Range Interpretation Comments A/G Ratio (test code = A/G Ratio) 1.2 0.7-1.6 [facility]2014-05-05 12:13:00 Test Item Value Reference Range Interpretation Comments B/C Ratio (test code = B/C Ratio) 10 6-25 [facility]2014-05-05 12:13:00 Test Item Value Reference Range Interpretation Comments AGAP (test code = AGAP) 6.9 10.0-20.0 [facility]2014-05-05 12:13:00 Test Item Value Reference Range Interpretation Comments eGFR (test code = eGFR) 101 [facility]2014-05-05 12:13:00 Test Item Value Reference Range Interpretation Comments Glucose Lvl (test code = Glucose Lvl) 84 70-99 [facility]2014-05-05 12:13:00 Test Item Value Reference Range Interpretation Comments Potassium Lvl (test code = Potassium 3.9 3.5-5.1 Lvl) [facility]2014-05-05 12:13:00 Test Item Value Reference Range Interpretation Comments Sodium Lvl (test code = Sodium Lvl) 141 135-145 [facility]2014-05-05 12:13:00 Test Item Value Reference Range Interpretation Comments Creatinine Lvl (test code = Creatinine 0.7 0.5-1.4 Lvl) [facility]2014-05-05 12:13:00 Test Item Value Reference Range Interpretation Comments BUN (test code = BUN) 7 7-22 [facility]2014-05-05 12:13:00 Test Item Value Reference Range Interpretation Comments Bili Total (test code = Bili Total) 0.3 0.2-1.3 [facility]2014-05-05 12:13:00 Test Item Value Reference Range Interpretation Comments Alk Phos (test code = Alk Phos) 71 39-136 [facility]2014-05-05 12:13:00 Test Item Value Reference Range Interpretation Comments AST (test code = AST) 21 See_Comment [Auto mated message] The system which ge nerated this result transmit ulysses reference range : <=37. The reference range was not used to interpr et this result as sharron l/abnormal. [place] 551894-05-05 12:13:00 Test Item Value Reference Range Interpretation Comments ALT (test code = ALT) 20 See_Comment [Auto mated message] The system which ge nerated this result transmit ulysses reference range : <=65. The reference range was not used to interpr et this result as sharron l/abnormal. [place] 551894-05-05 12:13:00 Test Item Value Reference Range Interpretation Comments Total Protein (test code = Total 6.1 6.4-8.4 Protein) [place] 551894-05-05 12:13:00 Test Item Value Reference Range Interpretation Comments CO2 (test code = CO2) 33 24-32 [place] 551894-05-05 12:13:00 Test Item Value Reference Range Interpretation Comments Albumin Lvl (test code = Albumin Lvl) 3.3 3.5-5.0 [facility]2014-05-05 12:13:00 Test Item Value Reference Range Interpretation Comments Calcium Lvl (test code = Calcium Lvl) 8.4 8.5-10.5 [facility]2014-05-05 12:13:00 Test Item Value Reference Range Interpretation Comments Chloride Lvl (test code = Chloride Lvl) 105 95-109 [place] 010214-05-05 12:13:00 Test Item Value Reference Range Interpretation Comments Basophils # (test code 0.0 See_Comment [Aut omated message] The = Basophils #) system which generated this result tra nsmitted reference range : <=0.2. The reference r jamaica was not used to int erpret this result as normal/abnormal . [facility]ennialPmhsvuiKFEXXYYZJL1889-96-27 12:13:00 Test Item Value Reference Range Interpretation Comments Segs (test code = Segs) 63.5 45.0-75.0 [place] 010214-05-05 12:13:00 Test Item Value Reference Range Interpretation Comments Monocytes # (test code 0.3 See_Comment [Aut omated message] The = Monocytes #) system which generated this result tra nsmitted reference range : <=0.8. The reference r jamaica was not used to int erpret this result as normal/abnormal . [facility] CentennialXuvpgjsCFJCLXUHBR6597-61-28 12:13:00 Test Item Value Reference Range Interpretation Comments Basophils (test code = 0.2 See_Comment [Aut omated message] The Basophils) system which ge nerated this result tra nsmitted reference range : <=1.0. The reference r jamaica was not used to int erpret this result as normal/abnormal . [facility] CentennialAtepkvgTOENHJHBMM9424-28-59 12:13:00 Test Item Value Reference Range Interpretation Comments Lymphocytes # (test code = Lymphocytes 1.5 1.0-5.5 #) [facility] CentennialXuwbovcSLQAQHLUAB2295-70-99 12:13:00 Test Item Value Reference Range Interpretation Comments Segs-Bands # (test code = Segs-Bands #) 3.3 1.5-8.1 [facility] CentennialUwqfwpvTWVLACHPFL4315-66-68 12:13:00 Test Item Value Reference Range Interpretation Comments Eosinophils # (test code 0.1 See_Comment [A utomated message] The = Eosinophils #) system whic h generated this result tra nsmitted reference range : <=0.5. The reference r jamaica was not used to int erpret this result as normal/abnormal . [facility]ennialHlqiqhnLLONLNQYIC6576-38-64 12:13:00 Test Item Value Reference Range Interpretation Comments Lymphocytes (test code = Lymphocytes) 28.9 20.0-40.0 [facility]ennialGdhqbxgDNVAHBHVRS8148-34-62 12:13:00 Test Item Value Reference Range Interpretation Comments Monocytes (test code = Monocytes) 6.2 2.0-12.0 [facility]ennialNiqcibdFGBABDJEYL3550-30-08 12:13:00 Test Item Value Reference Range Interpretation Comments Eosinophils (test code = 1.2 See_Comment [A utomated message] The Eosinophils) system which ge nerated this result tra nsmitted reference range : <=4.0. The reference r j[place]ica was not used to int erpret this result as normal/abnormal . [facility]ennialJbfxvpqQCQNZXAHIL1446-99-32 12:13:00 Test Item Value Reference Range Interpretation Comments MCHC (test code = MCHC) 34.3 32.0-36.0 [facility]ennialNqjagxmDDSCSBDBNK4388-49-51 12:13:00 Test Item Value Reference Range Interpretation Comments RDW (test code = RDW) 16.5 11.5-14.5 [facility]ennialWzdyahfVEJGODFGME0910-51-26 12:13:00 Test Item Value Reference Range Interpretation Comments MCH (test code = MCH) 31.5 pg 27.0-31.0 [facility]ennialWwnhrknNOHWOWPETW5141-08-19 12:13:00 Test Item Value Reference Range Interpretation Comments MCV (test code = MCV) 91.9 81.0-99.0 [facility] CentennialItohfieOUZTXHYCVD8971-96-78 12:13:00 Test Item Value Reference Range Interpretation Comments Platelet (test code = Platelet) 177 133-450 [facility] CentennialTaytoxiXUVRBEOSQJ1543-53-24 12:13:00 Test Item Value Reference Range Interpretation Comments MPV (test code = MPV) 7.9 7.4-10.4 [facility]ennialIdnujdlDUGFEGPQLI2190-20-80 12:13:00 Test Item Value Reference Range Interpretation Comments RBC (test code = RBC) 3.91 4.20-5.40 [facility] CentennialFtduewmJIIKNUKWKQ7082-90-36 12:13:00 Test Item Value Reference Range Interpretation Comments Hct (test code = Hct) 35.9 36.0-48.0 [facility] CentennialZerhbbfYHSOXYCPDC3087-36-74 12:13:00 Test Item Value Reference Range Interpretation Comments Hgb (test code = Hgb) 12.3 12.0-16.0 [facility] CentennialHicccafEPKVUXLUFI6607-42-57 12:13:00 Test Item Value Reference Range Interpretation Comments WBC (test code = WBC) 5.1 3.7-10.4 [facility]2014-05-05 12:13:00 Test Item Value Reference Range Interpretation Comments Magnesium Lvl (test code = Magnesium 1.8 1.8-2.4 Lvl) [facility]2014-05-05 12:13:00 Test Item Value Reference Range Interpretation Comments Phosphorus (test code = Phosphorus) 2.6 2.5-4.5 [facility]2014-05-05 12:13:00 Test Item Value Reference Range Interpretation Comments Globulin (test code = Globulin) 2.8 2.0-4.0 [facility]2014-05-05 12:13:00 Test Item Value Reference Range Interpretation Comments A/G Ratio (test code = A/G Ratio) 1.2 0.7-1.6 [facility]2014-05-05 12:13:00 Test Item Value Reference Range Interpretation Comments B/C Ratio (test code = B/C Ratio) 10 6-25 [facility]2014-05-05 12:13:00 Test Item Value Reference Range Interpretation Comments AGAP (test code = AGAP) 6.9 10.0-20.0 [facility]2014-05-05 12:13:00 Test Item Value Reference Range Interpretation Comments eGFR (test code = eGFR) 101 [facility]2014-05-05 12:13:00 Test Item Value Reference Range Interpretation Comments Glucose Lvl (test code = Glucose Lvl) 84 70-99 [place] 551894-05-05 12:13:00 Test Item Value Reference Range Interpretation Comments Potassium Lvl (test code = Potassium 3.9 3.5-5.1 Lvl) [facility]2014-05-05 12:13:00 Test Item Value Reference Range Interpretation Comments Sodium Lvl (test code = Sodium Lvl) 141 135-145 [facility]2014-05-05 12:13:00 Test Item Value Reference Range Interpretation Comments Creatinine Lvl (test code = Creatinine 0.7 0.5-1.4 Lvl) [facility]2014-05-05 12:13:00 Test Item Value Reference Range Interpretation Comments BUN (test code = BUN) 7 7-22 [facility]2014-05-05 12:13:00 Test Item Value Reference Range Interpretation Comments Bili Total (test code = Bili Total) 0.3 0.2-1.3 [facility]2014-05-05 12:13:00 Test Item Value Reference Range Interpretation Comments Alk Phos (test code = Alk Phos) 71 39-136 [facility]2014-05-05 12:13:00 Test Item Value Reference Range Interpretation Comments AST (test code = AST) 21 See_Comment [Auto mated message] The system which ge nerated this result transmit ulysses reference range : <=37. The reference range was not used to interpr et this result as sharron l/abnormal. [place] 551894-05-05 12:13:00 Test Item Value Reference Range Interpretation Comments ALT (test code = ALT) 20 See_Comment [Auto mated message] The system which ge nerated this result transmit ulysses reference range : <=65. The reference range was not used to interpr et this result as sharron l/abnormal. [place] 551894-05-05 12:13:00 Test Item Value Reference Range Interpretation Comments Total Protein (test code = Total 6.1 6.4-8.4 Protein) [facility]2014-05-05 12:13:00 Test Item Value Reference Range Interpretation Comments CO2 (test code = CO2) 33 24-32 [facility]2014-05-05 12:13:00 Test Item Value Reference Range Interpretation Comments Albumin Lvl (test code = Albumin Lvl) 3.3 3.5-5.0 [facility]2014-05-05 12:13:00 Test Item Value Reference Range Interpretation Comments Calcium Lvl (test code = Calcium Lvl) 8.4 8.5-10.5 [place] 551894-05-05 12:13:00 Test Item Value Reference Range Interpretation Comments Chloride Lvl (test code = Chloride Lvl) 105 95-109 [facility]ennialJfkbdcmJOLSQOSDAU3390-19-63 12:13:00 Test Item Value Reference Range Interpretation Comments Basophils # (test code 0.0 See_Comment [Aut omated message] The = Basophils #) system which generated this result tra nsmitted reference range : <=0.2. The reference r jamaica was not used to int erpret this result as normal/abnormal . [facility]ennialAvmzacfYWPBCABJUV0069-37-67 12:13:00 Test Item Value Reference Range Interpretation Comments Segs (test code = Segs) 63.5 45.0-75.0 [facility]ennialPwxprceUPUFUQCYBD1178-85-93 12:13:00 Test Item Value Reference Range Interpretation Comments Monocytes # (test code 0.3 See_Comment [Aut omated message] The = Monocytes #) system which generated this result tra nsmitted reference range : <=0.8. The reference r jamaica was not used to int erpret this result as normal/abnormal . [facility]ennialFvnkfqiYODUBHXVPU4774-93-73 12:13:00 Test Item Value Reference Range Interpretation Comments Basophils (test code = 0.2 See_Comment [Aut omated message] The Basophils) system which ge nerated this result tra nsmitted reference range : <=1.0. The reference r jamaica was not used to int erpret this result as normal/abnormal . [facility]ennialSntzaomHGKBFQLYVD4770-93-21 12:13:00 Test Item Value Reference Range Interpretation Comments Lymphocytes # (test code = Lymphocytes 1.5 1.0-5.5 #) [facility]ennialPwfbjvcPRYITNFHUX7131-88-46 12:13:00 Test Item Value Reference Range Interpretation Comments Segs-Bands # (test code = Segs-Bands #) 3.3 1.5-8.1 [facility] CentennialOrzomviVRVQAJFCPT6044-38-79 12:13:00 Test Item Value Reference Range Interpretation Comments Eosinophils # (test code 0.1 See_Comment [A utomated message] The = Eosinophils #) system wh h generated this result tra nsmitted reference range : <=0.5. The reference r jamaica was not used to int erpret this result as normal/abnormal . [facility]ennialSptkoneUEBPDERAHS9684-06-00 12:13:00 Test Item Value Reference Range Interpretation Comments Lymphocytes (test code = Lymphocytes) 28.9 20.0-40.0 [facility]ennialOzowfzzBJCDTXKOOQ1657-42-83 12:13:00 Test Item Value Reference Range Interpretation Comments Monocytes (test code = Monocytes) 6.2 2.0-12.0 [facility]ennialIguihyqDJGZQNFUZQ1828-22-19 12:13:00 Test Item Value Reference Range Interpretation Comments Eosinophils (test code = 1.2 See_Comment [A utomated message] The Eosinophils) system which ge nerated this result tra nsmitted reference range : <=4.0. The reference r jamaica was not used to int erpret this result as normal/abnormal . [facility]ennialEpropjrJZWVYTIHQM6776-05-13 12:13:00 Test Item Value Reference Range Interpretation Comments MCHC (test code = MCHC) 34.3 32.0-36.0 [facility]ennialNvwefvcZESDWGARVD6708-56-49 12:13:00 Test Item Value Reference Range Interpretation Comments RDW (test code = RDW) 16.5 11.5-14.5 [facility]ennialJsujitbLFDAGWLBOV9952-57-34 12:13:00 Test Item Value Reference Range Interpretation Comments MCH (test code = MCH) 31.5 pg 27.0-31.0 [facility]ennialDqezajhXPYQNUVYPJ5094-74-06 12:13:00 Test Item Value Reference Range Interpretation Comments MCV (test code = MCV) 91.9 81.0-99.0 [facility]ennialFhjhmicAOGTOWSPTT3489-28-67 12:13:00 Test Item Value Reference Range Interpretation Comments Platelet (test code = Platelet) 177 133-450 [facility] CentennialRgmqgxkVBRTUOBERW1801-71-61 12:13:00 Test Item Value Reference Range Interpretation Comments MPV (test code = MPV) 7.9 7.4-10.4 [facility]ennialIskryfqGRQOIXZAVT3581-29-67 12:13:00 Test Item Value Reference Range Interpretation Comments RBC (test code = RBC) 3.91 4.20-5.40 [facility] CentennialFjobszsOMYDGNRJVX4651-21-63 12:13:00 Test Item Value Reference Range Interpretation Comments Hct (test code = Hct) 35.9 36.0-48.0 [facility] CentennialZinjwkuFHNOYBDUYG0553-07-01 12:13:00 Test Item Value Reference Range Interpretation Comments Hgb (test code = Hgb) 12.3 12.0-16.0 [facility] CentennialTmwnteuQLQWILFWAX9917-75-46 12:13:00 Test Item Value Reference Range Interpretation Comments WBC (test code = WBC) 5.1 3.7-10.4 [facility]2014-05-05 12:13:00 Test Item Value Reference Range Interpretation Comments Magnesium Lvl (test code = Magnesium 1.8 1.8-2.4 Lvl) [facility]2014-05-05 12:13:00 Test Item Value Reference Range Interpretation Comments Phosphorus (test code = Phosphorus) 2.6 2.5-4.5 [facility]2014-05-05 12:13:00 Test Item Value Reference Range Interpretation Comments Globulin (test code = Globulin) 2.8 2.0-4.0 [facility]2014-05-05 12:13:00 Test Item Value Reference Range Interpretation Comments A/G Ratio (test code = A/G Ratio) 1.2 0.7-1.6 [facility]2014-05-05 12:13:00 Test Item Value Reference Range Interpretation Comments B/C Ratio (test code = B/C Ratio) 10 6-25 [facility]2014-05-05 12:13:00 Test Item Value Reference Range Interpretation Comments AGAP (test code = AGAP) 6.9 10.0-20.0 [facility]2014-05-05 12:13:00 Test Item Value Reference Range Interpretation Comments eGFR (test code = eGFR) 101 [facility]2014-05-05 12:13:00 Test Item Value Reference Range Interpretation Comments Glucose Lvl (test code = Glucose Lvl) 84 70-99 [place] 551894-05-05 12:13:00 Test Item Value Reference Range Interpretation Comments Potassium Lvl (test code = Potassium 3.9 3.5-5.1 Lvl) [place] 551894-05-05 12:13:00 Test Item Value Reference Range Interpretation Comments Sodium Lvl (test code = Sodium Lvl) 141 135-145 [place] 551894-05-05 12:13:00 Test Item Value Reference Range Interpretation Comments Creatinine Lvl (test code = Creatinine 0.7 0.5-1.4 Lvl) [place] 551894-05-05 12:13:00 Test Item Value Reference Range Interpretation Comments BUN (test code = BUN) 7 7-22 [place] 551894-05-05 12:13:00 Test Item Value Reference Range Interpretation Comments Bili Total (test code = Bili Total) 0.3 0.2-1.3 [place] 551894-05-05 12:13:00 Test Item Value Reference Range Interpretation Comments Alk Phos (test code = Alk Phos) 71 39-136 [place] 551894-05-05 12:13:00 Test Item Value Reference Range Interpretation Comments AST (test code = AST) 21 See_Comment [Auto mated message] The system which ge nerated this result transmit ulysses reference range : <=37. The reference range was not used to interpr et this result as sharron l/abnormal. [place] [address]-05-05 12:13:00 Test Item Value Reference Range Interpretation Comments ALT (test code = ALT) 20 See_Comment [Auto mated message] The system which ge nerated this result transmit ulysses reference range : <=65. The reference range was not used to interpr et this result as sharron l/abnormal. [facility]2014-05-05 12:13:00 Test Item Value Reference Range Interpretation Comments Total Protein (test code = Total 6.1 6.4-8.4 Protein) [place] [address]-05-05 12:13:00 Test Item Value Reference Range Interpretation Comments CO2 (test code = CO2) 33 24-32 [place] 551894-05-05 12:13:00 Test Item Value Reference Range Interpretation Comments Albumin Lvl (test code = Albumin Lvl) 3.3 3.5-5.0 [facility]2014-05-05 12:13:00 Test Item Value Reference Range Interpretation Comments Calcium Lvl (test code = Calcium Lvl) 8.4 8.5-10.5 [place] 551894-05-05 12:13:00 Test Item Value Reference Range Interpretation Comments Chloride Lvl (test code = Chloride Lvl) 105 95-109 [facility]ennialPswqmchLFFVUSEGKI0952-21-03 12:13:00 Test Item Value Reference Range Interpretation Comments Basophils # (test code 0.0 See_Comment [Aut omated message] The = Basophils #) system which generated this result tra nsmitted reference range : <=0.2. The reference r jamaica was not used to int erpret this result as normal/abnormal . [place] 010214-05-05 12:13:00 Test Item Value Reference Range Interpretation Comments Segs (test code = Segs) 63.5 45.0-75.0 [place] [address]-05-05 12:13:00 Test Item Value Reference Range Interpretation Comments Monocytes # (test code 0.3 See_Comment [Aut omated message] The = Monocytes #) system which generated this result tra nsmitted reference range : <=0.8. The reference r jamaica was not used to int erpret this result as normal/abnormal . [facility]ennialQfloxwaRRGIHFQDDJ5531-19-61 12:13:00 Test Item Value Reference Range Interpretation Comments Basophils (test code = 0.2 See_Comment [Aut omated message] The Basophils) system which ge nerated this result tra nsmitted reference range : <=1.0. The reference r jamaica was not used to int erpret this result as normal/abnormal . [facility]ennialXbvyctgBGABNQCVFC8346-43-10 12:13:00 Test Item Value Reference Range Interpretation Comments Lymphocytes # (test code = Lymphocytes 1.5 1.0-5.5 #) [facility] CentennialSlfztjaAFIYACBLXQ0704-13-77 12:13:00 Test Item Value Reference Range Interpretation Comments Segs-Bands # (test code = Segs-Bands #) 3.3 1.5-8.1 [facility] CentennialKpcnayfBIODVGUCNJ4109-01-07 12:13:00 Test Item Value Reference Range Interpretation Comments Eosinophils # (test code 0.1 See_Comment [A utomated message] The = Eosinophils #) system whic h generated this result tra nsmitted reference range : <=0.5. The reference r jamaica was not used to int erpret this result as normal/abnormal . [facility]ennialHqnfgrnZFYKGYKUYZ1132-36-75 12:13:00 Test Item Value Reference Range Interpretation Comments Lymphocytes (test code = Lymphocytes) 28.9 20.0-40.0 [facility]ennialXwvqtdrXAQHPJBQBO9635-94-05 12:13:00 Test Item Value Reference Range Interpretation Comments Monocytes (test code = Monocytes) 6.2 2.0-12.0 [facility] CentennialAomwagyKYSUITIEBG1448-59-16 12:13:00 Test Item Value Reference Range Interpretation Comments Eosinophils (test code = 1.2 See_Comment [A utomated message] The Eosinophils) system which ge nerated this result tra nsmitted reference range : <=4.0. The reference r jamaica was not used to int erpret this result as normal/abnormal . [facility] CentennialGtrhuglFVDULDDINS7991-63-13 12:13:00 Test Item Value Reference Range Interpretation Comments MCHC (test code = MCHC) 34.3 32.0-36.0 [facility] CentennialVgcziejSPETYOIFSV9735-49-14 12:13:00 Test Item Value Reference Range Interpretation Comments RDW (test code = RDW) 16.5 11.5-14.5 [facility] CentennialGsqiupxBEMLLEALMY6181-27-13 12:13:00 Test Item Value Reference Range Interpretation Comments MCH (test code = MCH) 31.5 pg 27.0-31.0 [facility] CentennialCiwwaoeKGOSHEVZOB0788-22-28 12:13:00 Test Item Value Reference Range Interpretation Comments MCV (test code = MCV) 91.9 81.0-99.0 [facility] CentennialGlqgehzZRGRINRUSF0636-84-09 12:13:00 Test Item Value Reference Range Interpretation Comments Platelet (test code = Platelet) 177 133-450 [facility] CentennialEbciuyyNTTCJXBPEO6585-59-12 12:13:00 Test Item Value Reference Range Interpretation Comments MPV (test code = MPV) 7.9 7.4-10.4 [facility] CentennialIfwjmxaFCPHESJQDL9614-65-79 12:13:00 Test Item Value Reference Range Interpretation Comments RBC (test code = RBC) 3.91 4.20-5.40 [facility] CentennialXuzbfroESUVINJOEM6041-26-08 12:13:00 Test Item Value Reference Range Interpretation Comments Hct (test code = Hct) 35.9 36.0-48.0 [facility] CentennialDpitgiwAVBYCXQCAW3939-62-22 12:13:00 Test Item Value Reference Range Interpretation Comments Hgb (test code = Hgb) 12.3 12.0-16.0 [place] 010214-05-05 12:13:00 Test Item Value Reference Range Interpretation Comments WBC (test code = WBC) 5.1 3.7-10.4 [facility]2014-05-05 12:13:00 Test Item Value Reference Range Interpretation Comments Magnesium Lvl (test code = Magnesium 1.8 1.8-2.4 Lvl) [facility]2014-05-05 12:13:00 Test Item Value Reference Range Interpretation Comments Phosphorus (test code = Phosphorus) 2.6 2.5-4.5 [facility]2014-05-05 12:13:00 Test Item Value Reference Range Interpretation Comments Globulin (test code = Globulin) 2.8 2.0-4.0 [facility]2014-05-05 12:13:00 Test Item Value Reference Range Interpretation Comments A/G Ratio (test code = A/G Ratio) 1.2 0.7-1.6 [facility]2014-05-05 12:13:00 Test Item Value Reference Range Interpretation Comments B/C Ratio (test code = B/C Ratio) 10 6-25 [facility]2014-05-05 12:13:00 Test Item Value Reference Range Interpretation Comments AGAP (test code = AGAP) 6.9 10.0-20.0 [facility]2014-05-05 12:13:00 Test Item Value Reference Range Interpretation Comments eGFR (test code = eGFR) 101 [facility]2014-05-05 12:13:00 Test Item Value Reference Range Interpretation Comments Glucose Lvl (test code = Glucose Lvl) 84 70-99 [facility]2014-05-05 12:13:00 Test Item Value Reference Range Interpretation Comments Potassium Lvl (test code = Potassium 3.9 3.5-5.1 Lvl) [facility]2014-05-05 12:13:00 Test Item Value Reference Range Interpretation Comments Sodium Lvl (test code = Sodium Lvl) 141 135-145 [facility]2014-05-05 12:13:00 Test Item Value Reference Range Interpretation Comments Creatinine Lvl (test code = Creatinine 0.7 0.5-1.4 Lvl) [facility]2014-05-05 12:13:00 Test Item Value Reference Range Interpretation Comments BUN (test code = BUN) 7 7-22 [facility]2014-05-05 12:13:00 Test Item Value Reference Range Interpretation Comments Bili Total (test code = Bili Total) 0.3 0.2-1.3 [facility]2014-05-05 12:13:00 Test Item Value Reference Range Interpretation Comments Alk Phos (test code = Alk Phos) 71 39-136 [facility]2014-05-05 12:13:00 Test Item Value Reference Range Interpretation Comments AST (test code = AST) 21 See_Comment [Auto mated message] The system which ge nerated this result transmit ulysses reference range : <=37. The reference range was not used to interpr et this result as sharron l/abnormal. [facility]2014-05-05 12:13:00 Test Item Value Reference Range Interpretation Comments ALT (test code = ALT) 20 See_Comment [Auto mated message] The system which ge nerated this result transmit ulysses reference range : <=65. The reference range was not used to interpr et this result as sharron l/abnormal. [facility]2014-05-05 12:13:00 Test Item Value Reference Range Interpretation Comments Total Protein (test code = Total 6.1 6.4-8.4 Protein) [place] 551894-05-05 12:13:00 Test Item Value Reference Range Interpretation Comments CO2 (test code = CO2) 33 24-32 [place] 551894-05-05 12:13:00 Test Item Value Reference Range Interpretation Comments Albumin Lvl (test code = Albumin Lvl) 3.3 3.5-5.0 [facility]2014-05-05 12:13:00 Test Item Value Reference Range Interpretation Comments Calcium Lvl (test code = Calcium Lvl) 8.4 8.5-10.5 [facility]2014-05-05 12:13:00 Test Item Value Reference Range Interpretation Comments Chloride Lvl (test code = Chloride Lvl) 105 95-109 [facility]ennialWidavzzDLAADVFBYI5952-99-60 12:13:00 Test Item Value Reference Range Interpretation Comments Basophils # (test code 0.0 See_Comment [Aut omated message] The = Basophils #) system which generated this result tra nsmitted reference range : <=0.2. The reference r jamaica was not used to int erpret this result as normal/abnormal . [facility] CentennialUklstthCVNTBCIBYF9858-83-78 12:13:00 Test Item Value Reference Range Interpretation Comments Segs (test code = Segs) 63.5 45.0-75.0 [facility] CentennialIoeqxpzYLZBDODQSL8087-34-82 12:13:00 Test Item Value Reference Range Interpretation Comments Monocytes # (test code 0.3 See_Comment [Aut omated message] The = Monocytes #) system which generated this result tra nsmitted reference range : <=0.8. The reference r jamaica was not used to int erpret this result as normal/abnormal . [facility]ennialUbfqwznAWINNJJQVU1380-89-32 12:13:00 Test Item Value Reference Range Interpretation Comments Basophils (test code = 0.2 See_Comment [Aut omated message] The Basophils) system which ge nerated this result tra nsmitted reference range : <=1.0. The reference r jamaica was not used to int erpret this result as normal/abnormal . [place] [address]-05-05 12:13:00 Test Item Value Reference Range Interpretation Comments Lymphocytes # (test code = Lymphocytes 1.5 1.0-5.5 #) [facility]ennialOzfhjehVIMHRKVGNQ8147-77-29 12:13:00 Test Item Value Reference Range Interpretation Comments Segs-Bands # (test code = Segs-Bands #) 3.3 1.5-8.1 [facility] [facility]ennialGcstwytGADKOWXZWF1211-19-29 12:13:00 Test Item Value Reference Range Interpretation Comments Eosinophils # (test code 0.1 See_Comment [A utomated message] The = Eosinophils #) system whic h generated this result tra nsmitted reference range : <=0.5. The reference r j[place] was not used to int erpret this result as normal/abnormal . [facility]ennialJvxjequYWKSRGYXZQ2829-89-46 12:13:00 Test Item Value Reference Range Interpretation Comments Lymphocytes (test code = Lymphocytes) 28.9 20.0-40.0 [facility]ennialPezvozbCMBCXPWELZ7097-95-90 12:13:00 Test Item Value Reference Range Interpretation Comments Monocytes (test code = Monocytes) 6.2 2.0-12.0 [facility]ennialPivixpvPXPNEVCFLP9122-10-59 12:13:00 Test Item Value Reference Range Interpretation Comments Eosinophils (test code = 1.2 See_Comment [A utomated message] The Eosinophils) system which ge nerated this result tra nsmitted reference range : <=4.0. The reference r jamaica was not used to int erpret this result as normal/abnormal . [facility]ennialAnwpejcPPHUOIFJUF1411-43-71 12:13:00 Test Item Value Reference Range Interpretation Comments MCHC (test code = MCHC) 34.3 32.0-36.0 [facility] CentennialXsxnmacHEWDJJLXBT3267-42-84 12:13:00 Test Item Value Reference Range Interpretation Comments RDW (test code = RDW) 16.5 11.5-14.5 [facility]ennialWtxuwuvMMSRLPTARJ2160-23-10 12:13:00 Test Item Value Reference Range Interpretation Comments MCH (test code = MCH) 31.5 pg 27.0-31.0 [facility] CentennialYhrovolNHJAQVHVPC7533-01-98 12:13:00 Test Item Value Reference Range Interpretation Comments MCV (test code = MCV) 91.9 81.0-99.0 [facility] CentennialUmaowahHMYADQLQRN9739-97-88 12:13:00 Test Item Value Reference Range Interpretation Comments Platelet (test code = Platelet) 177 133-450 [facility] CentennialNoqqjcwDINLBWEILX5170-73-50 12:13:00 Test Item Value Reference Range Interpretation Comments MPV (test code = MPV) 7.9 7.4-10.4 [facility]ennialLmrfvarZJJPJSWWVX1883-24-81 12:13:00 Test Item Value Reference Range Interpretation Comments RBC (test code = RBC) 3.91 4.20-5.40 [facility] CentennialFhqnknpODUHVFBKZY8029-80-89 12:13:00 Test Item Value Reference Range Interpretation Comments Hct (test code = Hct) 35.9 36.0-48.0 [facility] CentennialJnenexrKKOGXOSQSD2110-88-49 12:13:00 Test Item Value Reference Range Interpretation Comments Hgb (test code = Hgb) 12.3 12.0-16.0 [facility] CentennialOmvvisbXRGAHTAUQB7565-24-38 12:13:00 Test Item Value Reference Range Interpretation Comments WBC (test code = WBC) 5.1 3.7-10.4 [facility]2014-05-05 12:13:00 Test Item Value Reference Range Interpretation Comments Magnesium Lvl (test code = Magnesium 1.8 1.8-2.4 Lvl) [facility]2014-05-05 12:13:00 Test Item Value Reference Range Interpretation Comments Phosphorus (test code = Phosphorus) 2.6 2.5-4.5 [facility]2014-05-05 12:13:00 Test Item Value Reference Range Interpretation Comments Globulin (test code = Globulin) 2.8 2.0-4.0 [facility]2014-05-05 12:13:00 Test Item Value Reference Range Interpretation Comments A/G Ratio (test code = A/G Ratio) 1.2 0.7-1.6 [facility]2014-05-05 12:13:00 Test Item Value Reference Range Interpretation Comments B/C Ratio (test code = B/C Ratio) 10 6-25 [facility]2014-05-05 12:13:00 Test Item Value Reference Range Interpretation Comments AGAP (test code = AGAP) 6.9 10.0-20.0 [facility]2014-05-05 12:13:00 Test Item Value Reference Range Interpretation Comments eGFR (test code = eGFR) 101 [facility]2014-05-05 12:13:00 Test Item Value Reference Range Interpretation Comments Glucose Lvl (test code = Glucose Lvl) 84 70-99 [facility]2014-05-05 12:13:00 Test Item Value Reference Range Interpretation Comments Potassium Lvl (test code = Potassium 3.9 3.5-5.1 Lvl) [facility]2014-05-05 12:13:00 Test Item Value Reference Range Interpretation Comments Sodium Lvl (test code = Sodium Lvl) 141 135-145 [place] 551894-05-05 12:13:00 Test Item Value Reference Range Interpretation Comments Creatinine Lvl (test code = Creatinine 0.7 0.5-1.4 Lvl) [facility]2014-05-05 12:13:00 Test Item Value Reference Range Interpretation Comments BUN (test code = BUN) 7 7-22 [place] 551894-05-05 12:13:00 Test Item Value Reference Range Interpretation Comments Bili Total (test code = Bili Total) 0.3 0.2-1.3 [place] 551894-05-05 12:13:00 Test Item Value Reference Range Interpretation Comments Alk Phos (test code = Alk Phos) 71 39-136 [place] 551894-05-05 12:13:00 Test Item Value Reference Range Interpretation Comments AST (test code = AST) 21 See_Comment [Auto mated message] The system which ge nerated this result transmit ulysses reference range : <=37. The reference range was not used to interpr et this result as sharron l/abnormal. [facility]2014-05-05 12:13:00 Test Item Value Reference Range Interpretation Comments ALT (test code = ALT) 20 See_Comment [Auto mated message] The system which ge nerated this result transmit ulysses reference range : <=65. The reference range was not used to interpr et this result as sharron l/abnormal. [place] 551894-05-05 12:13:00 Test Item Value Reference Range Interpretation Comments Total Protein (test code = Total 6.1 6.4-8.4 Protein) [facility]2014-05-05 12:13:00 Test Item Value Reference Range Interpretation Comments CO2 (test code = CO2) 33 24-32 [place] 551894-05-05 12:13:00 Test Item Value Reference Range Interpretation Comments Albumin Lvl (test code = Albumin Lvl) 3.3 3.5-5.0 [facility]2014-05-05 12:13:00 Test Item Value Reference Range Interpretation Comments Calcium Lvl (test code = Calcium Lvl) 8.4 8.5-10.5 [facility]2014-05-05 12:13:00 Test Item Value Reference Range Interpretation Comments Chloride Lvl (test code = Chloride Lvl) 105 95-109 [facility]ennialQvzilflXZYIPSGQWO6747-03-23 12:13:00 Test Item Value Reference Range Interpretation Comments Basophils # (test code 0.0 See_Comment [Aut omated message] The = Basophils #) system which generated this result tra nsmitted reference range : <=0.2. The reference r j[place] was not used to int erpret this result as normal/abnormal . [facility] CentennialLebceysUVQIMAXGKC5591-14-57 12:13:00 Test Item Value Reference Range Interpretation Comments Segs (test code = Segs) 63.5 45.0-75.0 [facility]ennialUzzcrluVEEUJGFIFG2485-27-47 12:13:00 Test Item Value Reference Range Interpretation Comments Monocytes # (test code 0.3 See_Comment [Aut omated message] The = Monocytes #) system which generated this result tra nsmitted reference range : <=0.8. The reference r jamaica was not used to int erpret this result as normal/abnormal . [facility] CentennialKcehsylTNYODVEXQP5985-86-89 12:13:00 Test Item Value Reference Range Interpretation Comments Basophils (test code = 0.2 See_Comment [Aut omated message] The Basophils) system which ge nerated this result tra nsmitted reference range : <=1.0. The reference r jamaica was not used to int erpret this result as normal/abnormal . [facility]ennialLmouwubLKYTPDXYJE6531-37-16 12:13:00 Test Item Value Reference Range Interpretation Comments Lymphocytes # (test code = Lymphocytes 1.5 1.0-5.5 #) [facility]ennialOwgtpbqDDHYKWHYWT5045-21-45 12:13:00 Test Item Value Reference Range Interpretation Comments Segs-Bands # (test code = Segs-Bands #) 3.3 1.5-8.1 [facility] CentennialCaftkmvCQAPTDYKLP0584-67-98 12:13:00 Test Item Value Reference Range Interpretation Comments Eosinophils # (test code 0.1 See_Comment [A utomated message] The = Eosinophils #) system whic h generated this result tra nsmitted reference range : <=0.5. The reference r jamaica was not used to int erpret this result as normal/abnormal . [facility]ennialRzwzgtbHMQEMRJZEA6187-39-80 12:13:00 Test Item Value Reference Range Interpretation Comments Lymphocytes (test code = Lymphocytes) 28.9 20.0-40.0 [facility] CentennialJeodvmcCNORMSPRLD7917-28-08 12:13:00 Test Item Value Reference Range Interpretation Comments Monocytes (test code = Monocytes) 6.2 2.0-12.0 [facility]ennialXovvryyKHMLAMMXXI6801-80-22 12:13:00 Test Item Value Reference Range Interpretation Comments Eosinophils (test code = 1.2 See_Comment [A utomated message] The Eosinophils) system which ge nerated this result tra nsmitted reference range : <=4.0. The reference r jama[place] was not used to int erpret this result as normal/abnormal . [facility]ennialGzoyrjxQHWCBPBEMV3712-20-42 12:13:00 Test Item Value Reference Range Interpretation Comments MCHC (test code = MCHC) 34.3 32.0-36.0 [facility] CentennialTetviipOUMOEDRQUU8417-55-91 12:13:00 Test Item Value Reference Range Interpretation Comments RDW (test code = RDW) 16.5 11.5-14.5 [facility]ennialCarpghtTRYSMSZTBZ0702-86-29 12:13:00 Test Item Value Reference Range Interpretation Comments MCH (test code = MCH) 31.5 pg 27.0-31.0 [facility]ennialCpxhrifJNZYZTZLOH8517-54-01 12:13:00 Test Item Value Reference Range Interpretation Comments MCV (test code = MCV) 91.9 81.0-99.0 [facility]ennialJvgrgnnBLBUUVRKRV1144-63-90 12:13:00 Test Item Value Reference Range Interpretation Comments Platelet (test code = Platelet) 177 133-450 [facility] CentennialOkpqydgAKQMOJGHMX2261-93-43 12:13:00 Test Item Value Reference Range Interpretation Comments MPV (test code = MPV) 7.9 7.4-10.4 [facility] CentennialVlslhqpEHIHDKKLXF5163-23-64 12:13:00 Test Item Value Reference Range Interpretation Comments RBC (test code = RBC) 3.91 4.20-5.40 [facility] CentennialMclpcrsTRBGIAEJCF8693-22-46 12:13:00 Test Item Value Reference Range Interpretation Comments Hct (test code = Hct) 35.9 36.0-48.0 [facility] CentennialHmnvkwjXBCKAYTIPX2436-85-02 12:13:00 Test Item Value Reference Range Interpretation Comments Hgb (test code = Hgb) 12.3 12.0-16.0 [facility] CentennialTviqxkyOUQNSTAPCP8649-14-60 12:13:00 Test Item Value Reference Range Interpretation Comments WBC (test code = WBC) 5.1 3.7-10.4 [facility]2014-05-05 12:13:00 Test Item Value Reference Range Interpretation Comments Magnesium Lvl (test code = Magnesium 1.8 1.8-2.4 Lvl) [facility]2014-05-05 12:13:00 Test Item Value Reference Range Interpretation Comments Phosphorus (test code = Phosphorus) 2.6 2.5-4.5 [facility]2014-05-05 12:13:00 Test Item Value Reference Range Interpretation Comments Globulin (test code = Globulin) 2.8 2.0-4.0 [facility]2014-05-05 12:13:00 Test Item Value Reference Range Interpretation Comments A/G Ratio (test code = A/G Ratio) 1.2 0.7-1.6 [facility]2014-05-05 12:13:00 Test Item Value Reference Range Interpretation Comments B/C Ratio (test code = B/C Ratio) 10 6-25 [facility]2014-05-05 12:13:00 Test Item Value Reference Range Interpretation Comments AGAP (test code = AGAP) 6.9 10.0-20.0 [facility]2014-05-05 12:13:00 Test Item Value Reference Range Interpretation Comments eGFR (test code = eGFR) 101 [facility]2014-05-05 12:13:00 Test Item Value Reference Range Interpretation Comments Glucose Lvl (test code = Glucose Lvl) 84 70-99 [facility]2014-05-05 12:13:00 Test Item Value Reference Range Interpretation Comments Potassium Lvl (test code = Potassium 3.9 3.5-5.1 Lvl) [facility]2014-05-05 12:13:00 Test Item Value Reference Range Interpretation Comments Sodium Lvl (test code = Sodium Lvl) 141 135-145 [facility]2014-05-05 12:13:00 Test Item Value Reference Range Interpretation Comments Creatinine Lvl (test code = Creatinine 0.7 0.5-1.4 Lvl) [facility]2014-05-05 12:13:00 Test Item Value Reference Range Interpretation Comments BUN (test code = BUN) 7 7-22 [facility]2014-05-05 12:13:00 Test Item Value Reference Range Interpretation Comments Bili Total (test code = Bili Total) 0.3 0.2-1.3 [facility]2014-05-05 12:13:00 Test Item Value Reference Range Interpretation Comments Alk Phos (test code = Alk Phos) 71 39-136 [facility]2014-05-05 12:13:00 Test Item Value Reference Range Interpretation Comments AST (test code = AST) 21 See_Comment [Auto mated message] The system which ge nerated this result transmit ulysses reference range : <=37. The reference range was not used to interpr et this result as sharron l/abnormal. [facility]2014-05-05 12:13:00 Test Item Value Reference Range Interpretation Comments ALT (test code = ALT) 20 See_Comment [Auto mated message] The system which ge nerated this result transmit ulysses reference range : <=65. The reference range was not used to interpr et this result as sharron l/abnormal. [facility]2014-05-05 12:13:00 Test Item Value Reference Range Interpretation Comments Total Protein (test code = Total 6.1 6.4-8.4 Protein) [facility]2014-05-05 12:13:00 Test Item Value Reference Range Interpretation Comments CO2 (test code = CO2) 33 24-32 [facility]2014-05-05 12:13:00 Test Item Value Reference Range Interpretation Comments Albumin Lvl (test code = Albumin Lvl) 3.3 3.5-5.0 [facility]2014-05-05 12:13:00 Test Item Value Reference Range Interpretation Comments Calcium Lvl (test code = Calcium Lvl) 8.4 8.5-10.5 [place] 551894-05-05 12:13:00 Test Item Value Reference Range Interpretation Comments Chloride Lvl (test code = Chloride Lvl) 105 95-109 [facility] CentennialRafuupnZHGSYPIGCI6852-28-56 12:13:00 Test Item Value Reference Range Interpretation Comments Basophils # (test code 0.0 See_Comment [Aut omated message] The = Basophils #) system which generated this result tra nsmitted reference range : <=0.2. The reference r jamaica was not used to int erpret this result as normal/abnormal . [facility]ennialPshhwqhLWDHSDAVHB4856-54-63 12:13:00 Test Item Value Reference Range Interpretation Comments Segs (test code = Segs) 63.5 45.0-75.0 [facility] CentennialHtebcsaWSVPLCDRNQ2148-79-85 12:13:00 Test Item Value Reference Range Interpretation Comments Monocytes # (test code 0.3 See_Comment [Aut omated message] The = Monocytes #) system which generated this result tra nsmitted reference range : <=0.8. The reference r jamaica was not used to int erpret this result as normal/abnormal . [facility] CentennialLfmulqyTZPWPNUXLT4602-67-38 12:13:00 Test Item Value Reference Range Interpretation Comments Basophils (test code = 0.2 See_Comment [Aut omated message] The Basophils) system which ge nerated this result tra nsmitted reference range : <=1.0. The reference r jamaica was not used to int erpret this result as normal/abnormal . [facility]ennialSwudfriRPSRTUVWNR7151-44-64 12:13:00 Test Item Value Reference Range Interpretation Comments Lymphocytes # (test code = Lymphocytes 1.5 1.0-5.5 #) [facility] CentennialQlwrzeaADJUUSRHSL9451-33-33 12:13:00 Test Item Value Reference Range Interpretation Comments Segs-Bands # (test code = Segs-Bands #) 3.3 1.5-8.1 [facility] CentennialUczrqcfMTBVJITWQV0673-48-35 12:13:00 Test Item Value Reference Range Interpretation Comments Eosinophils # (test code 0.1 See_Comment [A utomated message] The = Eosinophils #) system whic h generated this result tra nsmitted reference range : <=0.5. The reference r jamaica was not used to int erpret this result as normal/abnormal . [facility] CentennialUdfxeggJRXGTWAAGK0292-85-98 12:13:00 Test Item Value Reference Range Interpretation Comments Lymphocytes (test code = Lymphocytes) 28.9 20.0-40.0 [facility] CentennialBhbrjveDUGUHKKPRR2178-76-53 12:13:00 Test Item Value Reference Range Interpretation Comments Monocytes (test code = Monocytes) 6.2 2.0-12.0 [facility] CentennialRibbgukPHNENFOWIL1177-32-07 12:13:00 Test Item Value Reference Range Interpretation Comments Eosinophils (test code = 1.2 See_Comment [A utomated message] The Eosinophils) system which ge nerated this result tra nsmitted reference range : <=4.0. The reference r jamaica was not used to int erpret this result as normal/abnormal . [facility] CentennialVujgvmdPDRQYXTWSS9952-89-15 12:13:00 Test Item Value Reference Range Interpretation Comments MCHC (test code = MCHC) 34.3 32.0-36.0 [facility] CentennialXoqynseVPJEPEDLTM3006-03-52 12:13:00 Test Item Value Reference Range Interpretation Comments RDW (test code = RDW) 16.5 11.5-14.5 [facility] CentennialRmwlxyfXGJWJZCTUX7987-85-84 12:13:00 Test Item Value Reference Range Interpretation Comments MCH (test code = MCH) 31.5 pg 27.0-31.0 [facility] CentennialSafjqkmWXVETWDMHS2947-39-64 12:13:00 Test Item Value Reference Range Interpretation Comments MCV (test code = MCV) 91.9 81.0-99.0 [facility] CentennialImnpkhbEDLDZYMSKF1462-39-53 12:13:00 Test Item Value Reference Range Interpretation Comments Platelet (test code = Platelet) 177 133-450 [facility] CentennialZeppoppRQHCNQFVTR7356-92-59 12:13:00 Test Item Value Reference Range Interpretation Comments MPV (test code = MPV) 7.9 7.4-10.4 [facility] CentennialSueufstNXCRKGWCNU7818-90-63 12:13:00 Test Item Value Reference Range Interpretation Comments RBC (test code = RBC) 3.91 4.20-5.40 [facility] CentennialJfdenymYYSLSICSWP1764-43-48 12:13:00 Test Item Value Reference Range Interpretation Comments Hct (test code = Hct) 35.9 36.0-48.0 [facility] CentennialTlrxfrmUMDEMFVIWU6296-39-22 12:13:00 Test Item Value Reference Range Interpretation Comments Hgb (test code = Hgb) 12.3 12.0-16.0 [facility]GKICWRRUN1667-[facility] 12:13:00 Test Item Value Reference Range Interpretation Comments WBC (test code = WBC) 5.1 3.7-10.4 [facility]2014-05-05 12:13:00 Test Item Value Reference Range Interpretation Comments Magnesium Lvl (test code = Magnesium 1.8 1.8-2.4 Lvl) [facility]2014-05-05 12:13:00 Test Item Value Reference Range Interpretation Comments Phosphorus (test code = Phosphorus) 2.6 2.5-4.5 [facility]2014-05-05 12:13:00 Test Item Value Reference Range Interpretation Comments Globulin (test code = Globulin) 2.8 2.0-4.0 [facility]2014-05-05 12:13:00 Test Item Value Reference Range Interpretation Comments A/G Ratio (test code = A/G Ratio) 1.2 0.7-1.6 [facility]2014-05-05 12:13:00 Test Item Value Reference Range Interpretation Comments B/C Ratio (test code = B/C Ratio) 10 6-25 [facility]2014-05-05 12:13:00 Test Item Value Reference Range Interpretation Comments AGAP (test code = AGAP) 6.9 10.0-20.0 [facility]2014-05-05 12:13:00 Test Item Value Reference Range Interpretation Comments eGFR (test code = eGFR) 101 [facility]2014-05-05 12:13:00 Test Item Value Reference Range Interpretation Comments Glucose Lvl (test code = Glucose Lvl) 84 70-99 [facility]2014-05-05 12:13:00 Test Item Value Reference Range Interpretation Comments Potassium Lvl (test code = Potassium 3.9 3.5-5.1 Lvl) [facility]2014-05-05 12:13:00 Test Item Value Reference Range Interpretation Comments Sodium Lvl (test code = Sodium Lvl) 141 135-145 [facility]2014-05-05 12:13:00 Test Item Value Reference Range Interpretation Comments Creatinine Lvl (test code = Creatinine 0.7 0.5-1.4 Lvl) [facility]2014-05-05 12:13:00 Test Item Value Reference Range Interpretation Comments BUN (test code = BUN) 7 7-22 [facility]2014-05-05 12:13:00 Test Item Value Reference Range Interpretation Comments Bili Total (test code = Bili Total) 0.3 0.2-1.3 [facility]2014-05-05 12:13:00 Test Item Value Reference Range Interpretation Comments Alk Phos (test code = Alk Phos) 71 39-136 [facility]2014-05-05 12:13:00 Test Item Value Reference Range Interpretation Comments AST (test code = AST) 21 See_Comment [Auto mated message] The system which ge nerated this result transmit ulysses reference range : <=37. The reference range was not used to interpr et this result as sharron l/abnormal. [facility]2014-05-05 12:13:00 Test Item Value Reference Range Interpretation Comments ALT (test code = ALT) 20 See_Comment [Auto mated message] The system which ge nerated this result transmit ulysses reference range : <=65. The reference range was not used to interpr et this result as sharron l/abnormal. [facility]2014-05-05 12:13:00 Test Item Value Reference Range Interpretation Comments Total Protein (test code = Total 6.1 6.4-8.4 Protein) [facility]2014-05-05 12:13:00 Test Item Value Reference Range Interpretation Comments CO2 (test code = CO2) 33 24-32 [facility]2014-05-05 12:13:00 Test Item Value Reference Range Interpretation Comments Albumin Lvl (test code = Albumin Lvl) 3.3 3.5-5.0 [facility]2014-05-05 12:13:00 Test Item Value Reference Range Interpretation Comments Calcium Lvl (test code = Calcium Lvl) 8.4 8.5-10.5 [facility]2014-05-05 12:13:00 Test Item Value Reference Range Interpretation Comments Chloride Lvl (test code = Chloride Lvl) 105 95-109 [facility]ennialSjnmwpnLUGAVDAZDA9538-26-95 12:13:00 Test Item Value Reference Range Interpretation Comments Basophils # (test code 0.0 See_Comment [Aut omated message] The = Basophils #) system which generated this result tra nsmitted reference range : <=0.2. The reference r jama[place] was not used to int erpret this result as normal/abnormal . [facility]ennialZbqatjzDOXKBDBLWQ2533-88-31 12:13:00 Test Item Value Reference Range Interpretation Comments Segs (test code = Segs) 63.5 45.0-75.0 [facility] CentennialUoabuixDERCCDNLME4777-41-60 12:13:00 Test Item Value Reference Range Interpretation Comments Monocytes # (test code 0.3 See_Comment [Aut omated message] The = Monocytes #) system which generated this result tra nsmitted reference range : <=0.8. The reference r jamaica was not used to int erpret this result as normal/abnormal . [facility] [facility]ennialRxrxnblQYWULXGRQV8652-21-88 12:13:00 Test Item Value Reference Range Interpretation Comments Basophils (test code = 0.2 See_Comment [Aut omated message] The Basophils) system which ge nerated this result tra nsmitted reference range : <=1.0. The reference r j[place] was not used to int erpret this result as normal/abnormal . [facility]ennialHyqmwkxTUPILUKIUQ2041-48-19 12:13:00 Test Item Value Reference Range Interpretation Comments Lymphocytes # (test code = Lymphocytes 1.5 1.0-5.5 #) [facility]ennialTyytchjIEXVLLAISR8082-61-75 12:13:00 Test Item Value Reference Range Interpretation Comments Segs-Bands # (test code = Segs-Bands #) 3.3 1.5-8.1 [facility]ennialUoszejuABBGAUWFTO4093-58-57 12:13:00 Test Item Value Reference Range Interpretation Comments Eosinophils # (test code 0.1 See_Comment [A utomated message] The = Eosinophils #) system whic h generated this result tra nsmitted reference range : <=0.5. The reference r jamaica was not used to int erpret this result as normal/abnormal . [facility]ennialSdnjqjkSNIHGJZKYL0884-14-53 12:13:00 Test Item Value Reference Range Interpretation Comments Lymphocytes (test code = Lymphocytes) 28.9 20.0-40.0 [facility]ennialXqtljbyOQRSMBDGOO3469-52-24 12:13:00 Test Item Value Reference Range Interpretation Comments Monocytes (test code = Monocytes) 6.2 2.0-12.0 [facility]ennialTnhzlosVZQNVANHGI4715-43-43 12:13:00 Test Item Value Reference Range Interpretation Comments Eosinophils (test code = 1.2 See_Comment [A utomated message] The Eosinophils) system which ge nerated this result tra nsmitted reference range : <=4.0. The reference r jamaica was not used to int erpret this result as normal/abnormal . [facility]ennialOlwwtrwCNPGMBSZNR5110-57-55 12:13:00 Test Item Value Reference Range Interpretation Comments MCHC (test code = MCHC) 34.3 32.0-36.0 [facility]ennialPmpivfzTSZNTGNBBK1038-43-02 12:13:00 Test Item Value Reference Range Interpretation Comments RDW (test code = RDW) 16.5 11.5-14.5 [facility]ennialNlgfwknFIOIJYFMCT0483-72-21 12:13:00 Test Item Value Reference Range Interpretation Comments MCH (test code = MCH) 31.5 pg 27.0-31.0 [facility] CentennialClxetryHUEATZUIHA1064-12-39 12:13:00 Test Item Value Reference Range Interpretation Comments MCV (test code = MCV) 91.9 81.0-99.0 [facility]ennialHypdfztJVCLRQGAJH2700-62-48 12:13:00 Test Item Value Reference Range Interpretation Comments Platelet (test code = Platelet) 177 133-450 [facility]ennialEboryypVKSMPYLNVH8334-41-65 12:13:00 Test Item Value Reference Range Interpretation Comments MPV (test code = MPV) 7.9 7.4-10.4 [facility]ennialNswckvhSNPBTCQBPA3925-94-03 12:13:00 Test Item Value Reference Range Interpretation Comments RBC (test code = RBC) 3.91 4.20-5.40 [facility]ennialPhfiwdxIOAMGDRVPZ3008-21-92 12:13:00 Test Item Value Reference Range Interpretation Comments Hct (test code = Hct) 35.9 36.0-48.0 [facility]ennialTjpxklcJNAVPWQRBQ2969-24-38 12:13:00 Test Item Value Reference Range Interpretation Comments Hgb (test code = Hgb) 12.3 12.0-16.0 [facility] CentennialBmhqtbeMEYACNBCCQ1683-93-57 12:13:00 Test Item Value Reference Range Interpretation Comments WBC (test code = WBC) 5.1 3.7-10.4 [facility]2014-05-05 12:13:00 Test Item Value Reference Range Interpretation Comments Magnesium Lvl (test code = Magnesium 1.8 1.8-2.4 Lvl) [facility]2014-05-05 12:13:00 Test Item Value Reference Range Interpretation Comments Phosphorus (test code = Phosphorus) 2.6 2.5-4.5 [facility]2014-05-05 12:13:00 Test Item Value Reference Range Interpretation Comments Globulin (test code = Globulin) 2.8 2.0-4.0 [facility]2014-05-05 12:13:00 Test Item Value Reference Range Interpretation Comments A/G Ratio (test code = A/G Ratio) 1.2 0.7-1.6 [facility]2014-05-05 12:13:00 Test Item Value Reference Range Interpretation Comments B/C Ratio (test code = B/C Ratio) 10 6-25 [place] 551894-05-05 12:13:00 Test Item Value Reference Range Interpretation Comments AGAP (test code = AGAP) 6.9 10.0-20.0 [facility]2014-05-05 12:13:00 Test Item Value Reference Range Interpretation Comments eGFR (test code = eGFR) 101 [facility]2014-05-05 12:13:00 Test Item Value Reference Range Interpretation Comments Glucose Lvl (test code = Glucose Lvl) 84 70-99 [facility]2014-05-05 12:13:00 Test Item Value Reference Range Interpretation Comments Potassium Lvl (test code = Potassium 3.9 3.5-5.1 Lvl) [facility]2014-05-05 12:13:00 Test Item Value Reference Range Interpretation Comments Sodium Lvl (test code = Sodium Lvl) 141 135-145 [facility]2014-05-05 12:13:00 Test Item Value Reference Range Interpretation Comments Creatinine Lvl (test code = Creatinine 0.7 0.5-1.4 Lvl) [facility]2014-05-05 12:13:00 Test Item Value Reference Range Interpretation Comments BUN (test code = BUN) 7 7-22 [facility]2014-05-05 12:13:00 Test Item Value Reference Range Interpretation Comments Bili Total (test code = Bili Total) 0.3 0.2-1.3 [facility]2014-05-05 12:13:00 Test Item Value Reference Range Interpretation Comments Alk Phos (test code = Alk Phos) 71 39-136 [facility]2014-05-05 12:13:00 Test Item Value Reference Range Interpretation Comments AST (test code = AST) 21 See_Comment [Auto mated message] The system which ge nerated this result transmit ulysses reference range : <=37. The reference range was not used to interpr et this result as sharron l/abnormal. [facility]2014-05-05 12:13:00 Test Item Value Reference Range Interpretation Comments ALT (test code = ALT) 20 See_Comment [Auto mated message] The system which ge nerated this result transmit ulysses reference range : <=65. The reference range was not used to interpr et this result as sharron l/abnormal. [facility]2014-05-05 12:13:00 Test Item Value Reference Range Interpretation Comments Total Protein (test code = Total 6.1 6.4-8.4 Protein) [facility]2014-05-05 12:13:00 Test Item Value Reference Range Interpretation Comments CO2 (test code = CO2) 33 24-32 [facility]2014-05-05 12:13:00 Test Item Value Reference Range Interpretation Comments Albumin Lvl (test code = Albumin Lvl) 3.3 3.5-5.0 [facility]2014-05-05 12:13:00 Test Item Value Reference Range Interpretation Comments Calcium Lvl (test code = Calcium Lvl) 8.4 8.5-10.5 [facility]2014-05-05 12:13:00 Test Item Value Reference Range Interpretation Comments Chloride Lvl (test code = Chloride Lvl) 105 95-109 [facility]ennialOazjupmIXZZYIPNSD3912-68-03 12:13:00 Test Item Value Reference Range Interpretation Comments Basophils # (test code 0.0 See_Comment [Aut omated message] The = Basophils #) system which generated this result tra nsmitted reference range : <=0.2. The reference r jamaica was not used to int erpret this result as normal/abnormal . [facility]ennialIkavdzcFZZUSUBIUT3874-99-60 12:13:00 Test Item Value Reference Range Interpretation Comments Segs (test code = Segs) 63.5 45.0-75.0 [facility]ennialMppznaxNOZVYGFVZD1369-71-48 12:13:00 Test Item Value Reference Range Interpretation Comments Monocytes # (test code 0.3 See_Comment [Aut omated message] The = Monocytes #) system which generated this result tra nsmitted reference range : <=0.8. The reference r jamaica was not used to int erpret this result as normal/abnormal . [facility] CentennialZnkiipaZDAGVYXDDI4947-89-39 12:13:00 Test Item Value Reference Range Interpretation Comments Basophils (test code = 0.2 See_Comment [Aut omated message] The Basophils) system which ge nerated this result tra nsmitted reference range : <=1.0. The reference r jamacia was not used to int erpret this result as normal/abnormal . [facility]ennialJhscenoXNFCNOCPTI3832-06-83 12:13:00 Test Item Value Reference Range Interpretation Comments Lymphocytes # (test code = Lymphocytes 1.5 1.0-5.5 #) [facility]ennialNogbrmlBDIIDRXYDE1982-81-36 12:13:00 Test Item Value Reference Range Interpretation Comments Segs-Bands # (test code = Segs-Bands #) 3.3 1.5-8.1 [facility]ennialKunqexsHTDXAJXIJR9365-05-10 12:13:00 Test Item Value Reference Range Interpretation Comments Eosinophils # (test code 0.1 See_Comment [A utomated message] The = Eosinophils #) system [facility] h generated this result tra nsmitted reference range : <=0.5. The reference r jamaica was not used to int erpret this result as normal/abnormal . [facility]ennialEqyrxyaFAEOYWZBGU5766-94-93 12:13:00 Test Item Value Reference Range Interpretation Comments Lymphocytes (test code = Lymphocytes) 28.9 20.0-40.0 [facility]ennialHmyctxvNCBNFPUEEN1572-27-93 12:13:00 Test Item Value Reference Range Interpretation Comments Monocytes (test code = Monocytes) 6.2 2.0-12.0 [facility]ennialVkvyimzGXDYALXMBP9631-99-01 12:13:00 Test Item Value Reference Range Interpretation Comments Eosinophils (test code = 1.2 See_Comment [A utomated message] The Eosinophils) system which ge nerated this result tra nsmitted reference range : <=4.0. The reference r jamaica was not used to int erpret this result as normal/abnormal . [facility]ennialQpihzlcIZRYVKRGEH6411-23-96 12:13:00 Test Item Value Reference Range Interpretation Comments MCHC (test code = MCHC) 34.3 32.0-36.0 [facility]ennialFmmqmzpIWKCCYYAVB4386-29-05 12:13:00 Test Item Value Reference Range Interpretation Comments RDW (test code = RDW) 16.5 11.5-14.5 [facility]ennialPakzyirINKUTUCUKL1807-17-37 12:13:00 Test Item Value Reference Range Interpretation Comments MCH (test code = MCH) 31.5 pg 27.0-31.0 [facility] CentennialWsaaikhTMWHVCWDBI3747-21-28 12:13:00 Test Item Value Reference Range Interpretation Comments MCV (test code = MCV) 91.9 81.0-99.0 [facility]ennialFdsssxfWJEXWFYUOR1034-13-24 12:13:00 Test Item Value Reference Range Interpretation Comments Platelet (test code = Platelet) 177 133-450 [facility] CentennialTzditwvNXZOKPPAOV9309-12-10 12:13:00 Test Item Value Reference Range Interpretation Comments MPV (test code = MPV) 7.9 7.4-10.4 [facility]ennialKzhgxpfRLKITWSKIV3016-86-95 12:13:00 Test Item Value Reference Range Interpretation Comments RBC (test code = RBC) 3.91 4.20-5.40 [facility]ennialClrvthkGBESFEFDIY9314-52-73 12:13:00 Test Item Value Reference Range Interpretation Comments Hct (test code = Hct) 35.9 36.0-48.0 [facility]ennialGoehzxyLYGBUBLIAK8971-44-27 12:13:00 Test Item Value Reference Range Interpretation Comments Hgb (test code = Hgb) 12.3 12.0-16.0 [facility] CentennialFsffuhnLUZUHUKZGZ3919-13-49 12:13:00 Test Item Value Reference Range Interpretation Comments WBC (test code = WBC) 5.1 3.7-10.4 [facility]2014-05-05 12:13:00 Test Item Value Reference Range Interpretation Comments Magnesium Lvl (test code = Magnesium 1.8 1.8-2.4 Lvl) [facility]2014-05-05 12:13:00 Test Item Value Reference Range Interpretation Comments Phosphorus (test code = Phosphorus) 2.6 2.5-4.5 [facility]2014-05-05 12:13:00 Test Item Value Reference Range Interpretation Comments Globulin (test code = Globulin) 2.8 2.0-4.0 [facility]2014-05-05 12:13:00 Test Item Value Reference Range Interpretation Comments A/G Ratio (test code = A/G Ratio) 1.2 0.7-1.6 [facility]2014-05-05 12:13:00 Test Item Value Reference Range Interpretation Comments B/C Ratio (test code = B/C Ratio) 10 6-25 [facility]2014-05-05 12:13:00 Test Item Value Reference Range Interpretation Comments AGAP (test code = AGAP) 6.9 10.0-20.0 [facility]2014-05-05 12:13:00 Test Item Value Reference Range Interpretation Comments eGFR (test code = eGFR) 101 [facility]2014-05-05 12:13:00 Test Item Value Reference Range Interpretation Comments Glucose Lvl (test code = Glucose Lvl) 84 70-99 [facility]2014-05-05 12:13:00 Test Item Value Reference Range Interpretation Comments Potassium Lvl (test code = Potassium 3.9 3.5-5.1 Lvl) [facility]2014-05-05 12:13:00 Test Item Value Reference Range Interpretation Comments Sodium Lvl (test code = Sodium Lvl) 141 135-145 [facility]2014-05-05 12:13:00 Test Item Value Reference Range Interpretation Comments Creatinine Lvl (test code = Creatinine 0.7 0.5-1.4 Lvl) [facility]2014-05-05 12:13:00 Test Item Value Reference Range Interpretation Comments BUN (test code = BUN) 7 7-22 [facility]2014-05-05 12:13:00 Test Item Value Reference Range Interpretation Comments Bili Total (test code = Bili Total) 0.3 0.2-1.3 [facility]2014-05-05 12:13:00 Test Item Value Reference Range Interpretation Comments Alk Phos (test code = Alk Phos) 71 39-136 [facility]2014-05-05 12:13:00 Test Item Value Reference Range Interpretation Comments AST (test code = AST) 21 See_Comment [Auto mated message] The system which ge nerated this result transmit ulysses reference range : <=37. The reference range was not used to interpr et this result as sharron l/abnormal. [facility]2014-05-05 12:13:00 Test Item Value Reference Range Interpretation Comments ALT (test code = ALT) 20 See_Comment [Auto mated message] The system which ge nerated this result transmit ulysses reference range : <=65. The reference range was not used to interpr et this result as sharron l/abnormal. [facility]2014-05-05 12:13:00 Test Item Value Reference Range Interpretation Comments Total Protein (test code = Total 6.1 6.4-8.4 Protein) [place] 551894-05-05 12:13:00 Test Item Value Reference Range Interpretation Comments CO2 (test code = CO2) 33 24-32 [place] 551894-05-05 12:13:00 Test Item Value Reference Range Interpretation Comments Albumin Lvl (test code = Albumin Lvl) 3.3 3.5-5.0 [facility]2014-05-05 12:13:00 Test Item Value Reference Range Interpretation Comments Calcium Lvl (test code = Calcium Lvl) 8.4 8.5-10.5 [facility]2014-05-05 12:13:00 Test Item Value Reference Range Interpretation Comments Chloride Lvl (test code = Chloride Lvl) 105 95-109 [facility]ennialEeocspgLJKZBSLGFI6146-32-72 12:13:00 Test Item Value Reference Range Interpretation Comments Basophils # (test code 0.0 See_Comment [Aut omated message] The = Basophils #) system which generated this result tra nsmitted reference range : <=0.2. The reference r jamaica was not used to int erpret this result as normal/abnormal . [facility]ennialUqhrsbfGAKOTQFKRK6076-63-86 12:13:00 Test Item Value Reference Range Interpretation Comments Segs (test code = Segs) 63.5 45.0-75.0 [facility]ennialAchwksuWJWMASZLWL2683-98-74 12:13:00 Test Item Value Reference Range Interpretation Comments Monocytes # (test code 0.3 See_Comment [Aut omated message] The = Monocytes #) system which generated this result tra nsmitted reference range : <=0.8. The reference r jamaica was not used to int erpret this result as normal/abnormal . [facility] CentennialObzkywfBIWATBCWSU5920-80-16 12:13:00 Test Item Value Reference Range Interpretation Comments Basophils (test code = 0.2 See_Comment [Aut omated message] The Basophils) system which ge nerated this result tra nsmitted reference range : <=1.0. The reference r jamaica was not used to int erpret this result as normal/abnormal . [facility]ennialEybxxixJTEYVQKPKP1801-83-31 12:13:00 Test Item Value Reference Range Interpretation Comments Lymphocytes # (test code = Lymphocytes 1.5 1.0-5.5 #) [facility]ennialEfjiukzZJEJXDFECF1746-72-30 12:13:00 Test Item Value Reference Range Interpretation Comments Segs-Bands # (test code = Segs-Bands #) 3.3 1.5-8.1 [facility] CentennialXcooappFZIOSDTQHJ9558-18-64 12:13:00 Test Item Value Reference Range Interpretation Comments Eosinophils # (test code 0.1 See_Comment [A utomated message] The = Eosinophils #) system [facility] h generated this result tra nsmitted reference range : <=0.5. The reference r jamaica was not used to int erpret this result as normal/abnormal . [facility]ennialAdvyzosRTPGZSABQZ5444-93-01 12:13:00 Test Item Value Reference Range Interpretation Comments Lymphocytes (test code = Lymphocytes) 28.9 20.0-40.0 [facility] CentennialDlcawcyWJLFHUEHYA6916-21-06 12:13:00 Test Item Value Reference Range Interpretation Comments Monocytes (test code = Monocytes) 6.2 2.0-12.0 [facility]ennialKdnvbmiMENITCLHEK9868-20-79 12:13:00 Test Item Value Reference Range Interpretation Comments Eosinophils (test code = 1.2 See_Comment [A utomated message] The Eosinophils) system which ge nerated this result tra nsmitted reference range : <=4.0. The reference r jamaica was not used to int erpret this result as normal/abnormal . [facility] CentennialGbvhipqDJLJMQXMKC1373-50-43 12:13:00 Test Item Value Reference Range Interpretation Comments MCHC (test code = MCHC) 34.3 32.0-36.0 [facility] CentennialBylvappUYOYLPOWIP2941-83-55 12:13:00 Test Item Value Reference Range Interpretation Comments RDW (test code = RDW) 16.5 11.5-14.5 [facility] CentennialQuzaizwOBWKIODFGG2334-86-98 12:13:00 Test Item Value Reference Range Interpretation Comments MCH (test code = MCH) 31.5 pg 27.0-31.0 [facility] CentennialEmpnnebIZHMYQKRJT0743-78-99 12:13:00 Test Item Value Reference Range Interpretation Comments MCV (test code = MCV) 91.9 81.0-99.0 [facility] CentennialQxmznphIKFCINLMNY4333-69-77 12:13:00 Test Item Value Reference Range Interpretation Comments Platelet (test code = Platelet) 177 133-450 [facility] CentennialHggdhueHQOIDGFUXC1386-92-28 12:13:00 Test Item Value Reference Range Interpretation Comments MPV (test code = MPV) 7.9 7.4-10.4 [facility] CentennialCbfinkdAAUKHDXWOU2755-90-88 12:13:00 Test Item Value Reference Range Interpretation Comments RBC (test code = RBC) 3.91 4.20-5.40 [facility] CentennialGccfrijAZBSEOGNPK2267-01-56 12:13:00 Test Item Value Reference Range Interpretation Comments Hct (test code = Hct) 35.9 36.0-48.0 [facility] CentennialIhrilrqZEMWYIYXSF4943-27-98 12:13:00 Test Item Value Reference Range Interpretation Comments Hgb (test code = Hgb) 12.3 12.0-16.0 [facility] CentennialFildwkiMEMVANHYBF6131-16-63 12:13:00 Test Item Value Reference Range Interpretation Comments WBC (test code = WBC) 5.1 3.7-10.4 [facility] ABHRO6342-34-48 12:13:00 Test Item Value Reference Range Interpretation Comments Magnesium Lvl (test code = Magnesium 1.8 1.8-2.4 Lvl) [facility] IXJOL3708-59-71 12:13:00 Test Item Value Reference Range Interpretation Comments Phosphorus (test code = Phosphorus) 2.6 2.5-4.5 [facility] YOCGK0662-49-57 12:13:00 Test Item Value Reference Range Interpretation Comments Globulin (test code = Globulin) 2.8 2.0-4.0 [place] 551894-05-05 12:13:00 Test Item Value Reference Range Interpretation Comments A/G Ratio (test code = A/G Ratio) 1.2 0.7-1.6 [place] 551894-05-05 12:13:00 Test Item Value Reference Range Interpretation Comments B/C Ratio (test code = B/C Ratio) 10 6-25 [place] 551894-05-05 12:13:00 Test Item Value Reference Range Interpretation Comments AGAP (test code = AGAP) 6.9 10.0-20.0 [place] 551894-05-05 12:13:00 Test Item Value Reference Range Interpretation Comments eGFR (test code = eGFR) 101 [place] 551894-05-05 12:13:00 Test Item Value Reference Range Interpretation Comments Glucose Lvl (test code = Glucose Lvl) 84 70-99 [place] 551894-05-05 12:13:00 Test Item Value Reference Range Interpretation Comments Potassium Lvl (test code = Potassium 3.9 3.5-5.1 Lvl) [place] 551894-05-05 12:13:00 Test Item Value Reference Range Interpretation Comments Sodium Lvl (test code = Sodium Lvl) 141 135-145 [facility]2014-05-05 12:13:00 Test Item Value Reference Range Interpretation Comments Creatinine Lvl (test code = Creatinine 0.7 0.5-1.4 Lvl) [place] 551894-05-05 12:13:00 Test Item Value Reference Range Interpretation Comments BUN (test code = BUN) 7 7-22 [place] 551894-05-05 12:13:00 Test Item Value Reference Range Interpretation Comments Bili Total (test code = Bili Total) 0.3 0.2-1.3 [place] 551894-05-05 12:13:00 Test Item Value Reference Range Interpretation Comments Alk Phos (test code = Alk Phos) 71 39-136 [place] 551894-05-05 12:13:00 Test Item Value Reference Range Interpretation Comments AST (test code = AST) 21 See_Comment [Auto mated message] The system which ge nerated this result transmit ulysses reference range : <=37. The reference range was not used to interpr et this result as sharron l/abnormal. [facility]2014-05-05 12:13:00 Test Item Value Reference Range Interpretation Comments ALT (test code = ALT) 20 See_Comment [Auto mated message] The system which ge nerated this result transmit ulysses reference range : <=65. The reference range was not used to interpr et this result as sharron l/abnormal. [facility]2014-05-05 12:13:00 Test Item Value Reference Range Interpretation Comments Total Protein (test code = Total 6.1 6.4-8.4 Protein) [facility]2014-05-05 12:13:00 Test Item Value Reference Range Interpretation Comments CO2 (test code = CO2) 33 24-32 [facility]2014-05-05 12:13:00 Test Item Value Reference Range Interpretation Comments Albumin Lvl (test code = Albumin Lvl) 3.3 3.5-5.0 [facility]2014-05-05 12:13:00 Test Item Value Reference Range Interpretation Comments Calcium Lvl (test code = Calcium Lvl) 8.4 8.5-10.5 [facility]2014-05-05 12:13:00 Test Item Value Reference Range Interpretation Comments Chloride Lvl (test code = Chloride Lvl) 105 95-109 [facility]ennialJcwwdvmOYXRUEHLVX4540-85-24 12:13:00 Test Item Value Reference Range Interpretation Comments Basophils # (test code 0.0 See_Comment [Aut omated message] The = Basophils #) system which generated this result tra nsmitted reference range : <=0.2. The reference r j[place] was not used to int erpret this result as normal/abnormal . [id number] 12:13:00 Test Item Value Reference Range Interpretation Comments Segs (test code = Segs) 63.5 45.0-75.0 [facility] Centennial[id number] 12:13:00 Test Item Value Reference Range Interpretation Comments Monocytes # (test code 0.3 See_Comment [Aut omated message] The = Monocytes #) system which generated this result tra nsmitted reference range : <=0.8. The reference r jamaica was not used to int erpret this result as normal/abnormal . [facility]ennial[id number] 12:13:00 Test Item Value Reference Range Interpretation Comments Basophils (test code = 0.2 See_Comment [Aut omated message] The Basophils) system which ge nerated this result tra nsmitted reference range : <=1.0. The reference r jamaica was not used to int erpret this result as normal/abnormal . [facility]ennialKpewbydMOYXVHYLTS7556-99-93 12:13:00 Test Item Value Reference Range Interpretation Comments Lymphocytes # (test code = Lymphocytes 1.5 1.0-5.5 #) [facility] Cen[id number] 12:13:00 Test Item Value Reference Range Interpretation Comments Segs-Bands # (test code = Segs-Bands #) 3.3 1.5-8.1 [facility] CentennialUgnllouYUIVPDDKUH7483-56-05 12:13:00 Test Item Value Reference Range Interpretation Comments Eosinophils # (test code 0.1 See_Comment [A utomated message] The = Eosinophils #) system wh h generated this result tra nsmitted reference range : <=0.5. The reference r jamaica was not used to int erpret this result as normal/abnormal . [facility] CentennialOrclnwwDDXXYUKJVJ2663-77-21 12:13:00 Test Item Value Reference Range Interpretation Comments Lymphocytes (test code = Lymphocytes) 28.9 20.0-40.0 [facility] CentennialDcsxxljBSEUHSTGPL2450-22-29 12:13:00 Test Item Value Reference Range Interpretation Comments Monocytes (test code = Monocytes) 6.2 2.0-12.0 [facility]ennialEkdpwmvGEVVVRJRCI9293-16-78 12:13:00 Test Item Value Reference Range Interpretation Comments Eosinophils (test code = 1.2 See_Comment [A utomated message] The Eosinophils) system which ge nerated this result tra nsmitted reference range : <=4.0. The reference r jamaica was not used to int erpret this result as normal/abnormal . [facility] CentennialKneudprEJPGNQPXRT0271-12-19 12:13:00 Test Item Value Reference Range Interpretation Comments MCHC (test code = MCHC) 34.3 32.0-36.0 [facility] CentennialUoffizsQYRHYWHSYV8448-89-64 12:13:00 Test Item Value Reference Range Interpretation Comments RDW (test code = RDW) 16.5 11.5-14.5 [facility] CentennialKuocsgvRKILYABVOR6344-04-43 12:13:00 Test Item Value Reference Range Interpretation Comments MCH (test code = MCH) 31.5 pg 27.0-31.0 [facility] CentennialFnryefiIJNSJSYXKI3467-59-34 12:13:00 Test Item Value Reference Range Interpretation Comments MCV (test code = MCV) 91.9 81.0-99.0 [facility] CentennialXmrzpprPLPPBPTSNW6149-83-65 12:13:00 Test Item Value Reference Range Interpretation Comments Platelet (test code = Platelet) 177 133-450 [facility] CentennialRvhbvmeBMEWFBGCBZ1632-80-18 12:13:00 Test Item Value Reference Range Interpretation Comments MPV (test code = MPV) 7.9 7.4-10.4 [facility] CentennialLbsdnxnHOWKRAWIJJ1301-88-78 12:13:00 Test Item Value Reference Range Interpretation Comments RBC (test code = RBC) 3.91 4.20-5.40 [facility] CentennialWsbzxvwAAYKPBUGUE6839-77-64 12:13:00 Test Item Value Reference Range Interpretation Comments Hct (test code = Hct) 35.9 36.0-48.0 [facility] CentennialSxktvskRRZRECYOSG5709-17-60 12:13:00 Test Item Value Reference Range Interpretation Comments Hgb (test code = Hgb) 12.3 12.0-16.0 [facility] CentennialLkzezcuKRQPCCWGEH4492-39-97 12:13:00 Test Item Value Reference Range Interpretation Comments WBC (test code = WBC) 5.1 3.7-10.4 [facility] Notes Date/Time Note Provider Source 2021 17:23:00-00:00 [id number] [address] PATIENT NAME: RO MAYNARD ADMIT DATE: 1 ACCOUNT NO: [id number] ROOM NO: S218 AGE: 56 REPORT TYPE: CONSULTATION SEX: F ADMITTING PHYSICIAN: Jaiden Antunez MD ATTENDING PHYSICIAN: Shadi Carcamo MD CONSULTATION DATE: CONSULTING PHYSICIAN: Dawson Ramírez MD ATTENDING PHYSICIAN: Shadi Carcamo MD. REASON FOR CONSULTATION: Intractable nausea, vom iting, abdominal pain, epigastric and right upper quadrant. HISTORY OF PRESENT ILLNESS: The patient is a 56-year-old woman who has been to [facility] multiple times for similar sympt oms [...] we will try to obtain them from [employer] and plan for treatment for hepatitis C, I strong ly recommended to avoid marijuana and alcohol at this time. The patient is cleared to be discharged from GI after a small bowel follow through if no acute pathology like an obstruction is found. We will continue workup as an outpatient. WT: CON:LSANTOS/RENETTA/SAMUEL Conf#: [id number]/DID#: [id number] (ADDENDUM) Dictated By: Dawson Ramírez MD WT: CON:L.BRENNA/RENETTA/SAMUEL Conf#: [id number]/DID#: [id number] Authenticated by Dawson Ramírez MD On 021 01:50:51 PM at 1351 PATIENT NAME: RO MAYNARD 9001 2021 10:28:00-00:00 [facility] ([facility]) Hospitalist Progress Note REPORT#:[id number] REPORT STATUS: Signed DATE:02/26/21 TIME:1028 PATIENT: RO MAYNARD UNIT #: [id number] ROOM/BED: [facility] : 63 AGE: 56 SEX: F ATTEND: Xiomara Antunez MD ADM AUTHOR: Shadi Carcamo MD * ALL edits or amendments must be made on the el [employer]/computer document * Subjective Chief Complaint: No acute events Still no epigastric pain Patient has history of Quispe's esophagus Objective General VS/I O: Vital Signs: Date Time Temp Pulse Resp B/P B/P Pulse O2 O2 F low FiO2 Mean Ox Delivery Rate 02/26 1150 98.6 59 18 136/74 94.5 92 Room air / 0857 97 Room air 21 02/26 0814 98.4 55 18 130/77 94.8 92 Room air 02/26 0444 98.8 63 14 123/76 0.0 98 07/ 0432 71 95 30 07/ 0117 68 123/77 92.5 / 0100 68 97 30 / 0041 98.2 56 14 104/67 79.2 93 02/25 2031 98.4 59 18 139/79 99.3 89 Room air 24 hour I O ending at 0700: 02 0700 / 1900 Intake Total Output Total Balance Patient [...] % (Auto) (20.5 - 51.1 %) 28.9 Cascade % (Auto) (1.7 - 9.3 %) 5.4 Eos % (Auto) (0.0 - 6.0 %) 0.3 Baso % (Auto) (0.0 - 2.0 %) 0.3 Neut # (Auto) (1.8 - 7.6 K/mm3) 2.5 Lymph # (Auto) (0.6 - 3.2 K/mm3) 1.1 Cascade # (Auto) (0.3 - 1.1 K/mm3) 0.2 [...] choledocholithiasis. No biliar y dilatation. Impression By: MontanaEFShanna Meza MD Diagnosis, Assessment Plan Free Text DxA [...] Carcamo MD on at 1533 RPT #: [id number] END OF REPORT 2021-02-25 17:16:00-00:00 [facility] ([facility]) Hospitalist History Physical REPORT#:[id number] REPORT STATUS: Signed DATE:02/25/21 TIME:1716 PATIENT: RO MAYNARD UNIT #: [id number] ROOM/BED: [place] [address] : 63 AGE: 55 SEX: F ATTEND: Xiomara Antunez MD ADM AUTHOR: Jaiden Antunez MD * ALL edits or amendments must be made on the el [employer]/computer document * History of Present Illness HPI [...] Crohn's disease diagnosed 15 years ago in [place] but for the 4 years she has not been able to get her treated since she moved to [place] She also has rheumatoid arthritis for which [...] % (Auto) (20.5 - 51.1 %) 33.6 Cascade % (Auto) (1.7 - 9.3 %) 7.4 Eos % (Auto) (0.0 - 6.0 %) 0.8 Baso % (Auto) (0.0 - 2.0 %) 0.2 Neut # (Auto) (1.8 - 7.6 K/mm3) 3.1 Lymph # (Auto) (0.6 - 3.2 K/mm3) 1.8 Cascade # (Auto) (0.3 - 1.1 K/mm3) 0.4 [...] - 7.0 pH UNITS) 7.0 Ur Specific [place] (1.005 - 1.030 SG) <=1.005 Urine Protein [...] positive Extremities no pedal edema pulses palpable BUSINESS SOLUTIONS DIRECTOR alert oriented x3 moving all 4 extremities [...] Antunez MD on at 1725 RPT #: [id number] END OF REPORT 2021-02-25 13:33:00-00:00 [facility] ([facility]) EMERGENCY PROVIDER REPORT REPORT#:[id number] REPORT STATUS: Signed DATE:02/25/21 TIME:1333 PATIENT: RO MAYNARD UNIT #: [id number] ROOM/BED: [place] [address] : 63 AGE: 55 SEX: F PCP PHYS: Willian Escalante MD SERVICE AUTHOR: Bhavna Mulligan * ALL edits or amendments must be made on the [employer]/computer document * HPI-Abd Pain F 38 and [...] She w as seen and evaluated at [facility] yesterday where s he had an ultrasound and a CT. Patient states there were no gallstones but does not note any further particulars on the results. She followed up with her PCP, Dr John Escalante, today in clinic who advised her to come to [facility] ER for further work-up and [...] Result Date Time Pulse Ox 100 02/25 130 B/P 130/69 02/25 130 B/P Mean 89 02/25 1304 O2 Delivery [...] % (Auto) (20.5 - 51.1 %) 33.6 Cascade % (Auto) (1.7 - 9.3 %) 7.4 Eos % (Auto) (0.0 - 6.0 %) 0.8 Baso % (Auto) (0.0 - 2.0 %) 0.2 Neut # (Auto) (1.8 - 7.6 K/mm3) 3.1 Lymph # (Auto) (0.6 - 3.2 K/mm3) 1.8 Cascade # (Auto) (0.3 - 1.1 K/mm3) 0.4 [...] - 7.0 pH UNITS) 7.0 Ur Specific [place] (1.005 - 1.030 SG) <=1.005 Urine Protein [...] Date/Time Procedure - Status Source Growth 02/25 153 MRSA Screen - ORD NASAL Lab Statement Laboratory studies reviewed and considered in e medical decision-making. Re-Evaluation MDM Free Text MDM Notes Free Text MDM Notes Code status while in the ER was full code . Goals of care were discussed in the ED with patient and/or family and [facility] was updated on admission of code status [...] Consultation Consultation Referral/Consult Name Dawson Ramírez MD Double Head Machine Operator Called Gastroenterology Requested Call Time 1448 Requested Call Date 02/25/21 Call Returned Call returned Call Returned Time 1505 Call Returned Date 02/25/21 Double Head Machine Operator Will see patient, Agrees with plan Free [...] Mulligan on 09/17 at 1536 RPT #: [id number] END OF REPORT 2021-02-25 13:33:00-00:00 [facility] ([facility]) EMERGENCY PROVIDER REPORT REPORT#:[id number] REPORT STATUS: Signed DATE:02/25/21 TIME:1333 PATIENT: RO MAYNARD UNIT #: [id number] ROOM/BED: [place] [address] : 63 AGE: 55 SEX: F PCP [...] She w as seen and evaluated at [facility] yesterday where s he had an ultrasound and a CT. Patient states there were no gallstones but does not note any further particulars on the results. She followed up with her PCP, Dr John Escalante, today in clinic who advised her to come to [facility] ER for further work-up and asked the ED physician to call Dr. Ashley Escalante has already spoken with, for poss [...] % (Auto) (20.5 - 51.1 %) 33.6 Cascade % (Auto) (1.7 - 9.3 %) 7.4 Eos % (Auto) (0.0 - 6.0 %) 0.8 Baso % (Auto) (0.0 - 2.0 %) 0.2 Neut # (Auto) (1.8 - 7.6 K/mm3) 3.1 Lymph # (Auto) (0.6 - 3.2 K/mm3) 1.8 Cascade # (Auto) (0.3 - 1.1 K/mm3) 0.4 [...] - 7.0 pH UNITS) 7.0 Ur Specific [place] (1.005 - 1.030 SG) <=1.005 Urine Protein (NEG mg/dL) NEGATIVE Urine Glucose (UA) (NEG mg/dL) NEGATIVE Urine Ketones (NEG mg/dL) NEGATIVE Urine Blood (NEG mg/DL) NEGATIVE Urine Nitrite (NEG SCREEN) NEGATIVE Urine Bilirubin (NEG mg/dL) NEGATIVE Urine Urobilinogen (<2.0 mg/dL) 0.2 Ur Leukocyte Esterase (NEGATIVE Leuk/mcL) NEGA TIVE Urine Culture Screen (Culture CHK Criteria) NO, [...] Consultation Consultation Referral/Consult Name Dawson Ramírez MD Double Head Machine Operator Called Gastroenterology Requested Call Time 1448 Requested Call Date 02/25/21 Call Returned Call returned Call Returned Time 1505 Call Returned Date 02/25/21 Double Head Machine Operator Will see patient, Agrees with plan Free [...] Saw Pt Alone I have reviewed the PA/MACHINE REPAIRER's note and plan of car e. I was available for consultation as needed at al l times during the patient's visit in the emergency department. I agree with the clinical impression , plan and disposition. Electronically Signed by Bhavna Mulligan on 09/17 at 1536 Electronically Signed by Ezekiel Prakash DO on 09/17 at 1739 RPT #: [id number] END OF REPORT 2015-02-04 10:25:00-00:00 MRI lumbar spine without contrast. J CARLOS Patience HISTORY: Lumbago. Increasing right leg numbness, [...] 2015-02-04 10:25:00-00:00 MRI lumbar spine without contrast. J CARLOS Patience HISTORY: Lumbago. Increasing right leg numbness, [...] 09:10:00-00:00 PROCEDURE: MRI CERVICAL SPINE WITHOUT CONTRAST LNIDA Morin INDICATION: 724.4 Thoracic o r Lumbosacral [...] PROCEDURE: MRI CERVICAL SPINE WITHOUT CONTRAST LINDA LAZARAJaimie Patience INDICATION: 724.4 Thoracic o r Lumbosacral Neuritis [...] herniation SL: 2015-01-05 10:14:32-00:00 SA[facility]ILI[facility]INT [facility] CLINICAL HISTORY: Low back pain. COMPARISON IMAGING: [...] identified. No evidence of elbow joint effusion. [facility] Right elbow 2 views: No acut e osseous injury or arthritis identified. No joint effusion identified. IMPRESSION: 1. Unremarkable exam. 2015-01-05 10:14:32-00:00 SACROILIAC JOINT SERIES [facility] CLINICAL HISTORY: Low back pain. COMPARISON IMAGING: [...] identified. No evidence of elbow joint effusion. [facility] Right elbow 2 views: No acut e osseous injury or arthritis identified. No joint effusion identified. IMPRESSION: 1. Unremarkable exam. 2015-01-05 10:14:00:00 SACROILIAC JOINT SERIES [facility] CLINICAL HISTORY: Low back pain. COMPARISON IMAGING: None. FINDINGS: Three views were submitted f or evaluation. No fracture, dislocation, or radiopaque foreign body is seen. There is no evidence of an inflammatory or degenerative arthritis. Soft tissues are unremarkable. IMPRESSION: No significant abnormality. 2015-01-05 10:14::00 Left elbow 2 views: No acute osseous injury or evidence of arthritis identified. No evidence of elbow joint effusion. [facility] Right elbow 2 views: No acut e osseous injury or arthritis identified. No joint effusion identified. IMPRESSION: 1. Unremarkable exam. 2015-01-05 10:14::00 SACROILIAC JOINT [facility]IES [facility] CLINICAL HISTORY: Low back pain. COMPARISON IMAGING: None. FINDINGS: Three views were submitted f or evaluation. No fracture, dislocation, or radiopaque foreign body is seen. There is no evidence of an inflammatory or degenerative arthritis. Soft tissues are unremarkable. IMPRESSION: No significant abnormality. 2015-01-05 10:14:3200:00 Left elbow 2 views: No acute osseous injury or evidence of arthritis identified. No evidence of elbow joint effusion. [facility] Right elbow 2 views: No acut e osseous injury or arthritis identified. No joint effusion identified. IMPRESSION: 1. Unremarkable exam. 2014-05-20 07:04:16-00:00 STUDY: Chest one view. [facility] COMPARISON: None HISTORY: Hypertension. FINDINGS: The lungs are clear. No dens e focal consolidation is seen. No pleural effusion or pneumothorax is seen. The heart is normal in size. The osseous structures are unremarkable. IMPRESSION: No acute cardiopulmonary process. 2014-05-20 07:04:16-00:00 STUDY: Chest one view. [facility] COMPARISON: None HISTORY: Hypertension. FINDINGS: The lungs are clear. No dens e focal consolidation is seen. No pleural effusion or pneumothorax is seen. The heart is normal in size. The osseous structures are unremarkable. IMPRESSION: No acute cardiopulmonary process. 2014-05-20 07:04:16-00:00 STUDY: Chest one view. [facility] COMPARISON: None HISTORY: Hypertension. FINDINGS: The lungs are clear. No dens e focal consolidation is seen. No pleural effusion or pneumothorax is seen. The heart is normal in size. The osseous structures are unremarkable. IMPRESSION: No acute cardiopulmonary process. 2014-05-20 07:04:16-00:00 STUDY: Chest one view. [facility] COMPARISON: None HISTORY: Hypertension. FINDINGS: The lungs are clear. No dens e focal consolidation is seen. No pleural effusion or pneumothorax is seen. The heart is normal in size. The osseous structures are unremarkable. IMPRESSION: No acute cardiopulmonary process. 2014-01-02 09:12:00-00:00 HISTORY: Abdominal pain. [facility] Two views abdomen. Comparison 01/01/2014. Resid ual contrast within the colon unchanged from previous. No small bowel distention or obstruction identified. No fluid level or free air. There are atelectatic changes in both lung bases. SL:13 2014-01-02 09:12:00-00:00 HISTORY: Abdominal pain. [facility] Two views abdomen. Comparison 01/01/2014. Resid ual contrast within the colon unchanged from previous. No small bowel distention or obstruction identified. No fluid level or free air. There are atelectatic changes in both lung bases. SL:13 2014-01-02 09:12:00-00:00 HISTORY: Abdominal pain. [facility] Two views abdomen. Comparison 01/01/2014. Resid ual contrast within the colon unchanged from previous. No small bowel distention or obstruction identified. No fluid level or free air. There are atelectatic changes in both lung bases. SL:13 2014-01-02 09:12:00-00:00 HISTORY: Abdominal pain. [facility] Two views abdomen. Comparison 01/01/2014. Resid ual [...] of pneumoperitoneum. There are no other changes. [facility] SL:13 2014-01-01 08:00:00-00:00 ABDOMEN 2 VIEWS: There is no bowel distention. Contrast in the colon is seen with further transit and partial clearance since the exam on the previous day. There is no evidence of pneumoperitoneum. There are no other changes. [facility] SL:13 2014-01-01 08:00:00-00:00 ABDOMEN 2 VIEWS: There is no bowel distention. Contrast in the colon is seen with further transit and partial clearance since the exam on the previous day. There is no evidence of pneumoperitoneum. There are no other changes. [facility] SL:13 2014-01-01 08:00:00-00:00 ABDOMEN 2 VIEWS: There is no bowel distention. Contrast in the colon is seen with further transit and partial clearance since the exam on the previous day. There is no evidence of pneumoperitoneum. There are no other changes. [facility] SL:13
[2023-03-30 14:07] LABS: Potassium 3.7 mEq/L (3.5-5.1); Troponin High Sensitivity 3.4 pg/mL (<58.9)
--- NOTE | 2023-03-30 14:15 | RAD REPORT ---
EXAM DESCRIPTION: CT - Chest Abdomen Pelvis W Cont - 03/30/2023 1:56 pm CLINICAL HISTORY: Chest and abdomen pain. worsening left chest/upper abd pain COMPARISON: No comparisons TECHNIQUE: Approximately 100 mL nonionic IV contrast was administered to the patient. All CT scans are performed using dose optimization technique as appropriate and may include automated exposure control or mA/KV adjustment according to patient size. FINDINGS: Mild linear atelectasis is seen in both lung bases posteriorly.No focal infiltrate. TheNo pleural or pericardial effusion.No intrathoracic adenopathy. The liver, spleen, pancreas, adrenal glands and kidneys are within normal limits. No bowel obstruction, free air, free fluid or abscess. Moderate stool is present throughout the colon . Nonvisualized appendix. No pathologic lymphadenopathy in the abdomen or pelvis. Moderately severe lumbar dextroscoliosis with degenerative changes. Upper thoracic dextroscoliosis. IMPRESSION: No acute abnormality is detected.
--- NOTE | 2023-03-30 14:35 | ER ---
Nurse's Notes [facility] Name: Tita Elizabeth Age: 58 yrs Sex: Female : 1965 Arrival Date: 03/30/2023 Time: 13:27 Bed 5 Private MD: Diagnosis: Chest pain, unspecified Presentation: 03/30 13:57 Chief complaint: Patient states: L FLANK PAIN X 4DAYS. Coronavirus screen: Client dd1 denies travel out of the [place] in the last 14 days. Ebola Screen: No symptoms or risks identified at this time. Initial Sepsis Screen: Does the patient meet any 2 criteria? No. Patient's initial sepsis screen is negative. Does the patient have a suspected source of infection? No. Patient's initial sepsis screen is negative. Risk Assessment: Do you want to hurt yourself or someone else? Patient reports no desire to harm self or others. Onset of symptoms. Onset of symptoms was March 27, 2023. 13:57 Acuity: JAY 3 dd1 13:57 Method Of Arrival: EMS: [facility] dd1 Triage Assessment: 14:00 General: Appears in no apparent distress. comfortable, well nourished, Behavior is dd1 calm, cooperative. GI: No deficits noted. Historical: - Allergies: 13:50 Sulfa (Sulfonamide Antibiotics); dd1 - Home Meds: 13:50 aspirin 81 mg oral capsule 1 cap once [Active]; atorvastatin Oral once for dd1 hyperlipidemia [Active]; Hydrocodone-Acetaminophen Oral once [Active]; losartan Oral 1 tab once [Active]; Methocarbamol Oral [Active]; dicyclomine 10 mg Oral capsule 1 cap [Active]; - PMHx: 13:50 Arthritis; Colitis; Crohn's Disease; HTN; dd1 - PSHx: 13:50 Appendectomy; hysterectomy; kyphoplasty; Neck surgery, titanium cage; Tonsillectomy; dd1 - Immunization history:: Adult Immunizations up to date. - Family history:: not pertinent. - Social history:: Smoking status: Patient reports the use of cigarette tobacco products, smokes one pack cigarettes per day. - Hospitalizations: : No recent hospitalization is reported. Screenin:50 [facility] ED Fall Risk Assessment (Adult) Score/Fall Risk Level 3 or more points = High dd1 Risk Oriented to surroundings, Maintained a safe environment, Educated pt \T\ family on fall prevention, incl call for assistance when getting out of bed, Assessed \T\ reinforced patient's understanding of fall precautions, Hourly rounding (assess needs \T\ fall precautionary measures) done, Utilized family, sitter, or virtual insurance underwriter sales as indicated. Abuse screen: Denies threats or abuse. Denies injuries from another. Nutritional screening: No deficits noted. Tuberculosis screening: No symptoms or risk factors identified. Assessment: 13:49 Pain: Complains of pain in abdomen. GI: No deficits noted. Abdomen is flat, dd1 non-distended, Abdomen is tender to palpation in posterior aspect of left lateral abdomen, anterior aspect of left lateral abdomen and left lower quadrant. Vital Signs: 13:49 BP 119 / 78; Pulse 61; Resp 18; Pulse Ox 94% ; ko1 ED Course: 13:32 Patient arrived in ED. ds4 13:33 Nicolas Tobar MD is Attending Physician. rn 13:34 Evie Dallas RN is Primary Nurse. ko1 13:46 Inserted saline lock: 20 gauge in right antecubital area, using aseptic technique. dd1 Blood collected. 13:50 Placed in gown. Bed in low position. Call light in reach. Side rails up X2. Adult w/ dd1 patient. 13:58 CT Chest, Abdomen, Pelvis - W/Contrast In Process Unspecified. EDMS 13:59 Triage completed. dd1 14:00 Arm band placed on right wrist. dd1 15:09 No provider procedures requiring assistance completed. IV discontinued, intact, dd1 bleeding controlled, No redness/swelling at site. Pressure dressing applied. 15:09 Provided Education on: DC INSTRUCTIONS. dd1 Administered Medications: 13:45 Drug: Ondansetron IVP 4 mg Route: IVP; Site: right antecubital; dd1 13:46 Drug: morphine IVP or IV 4 mg Route: IVP; Infused Over: 4 mins; Site: right antecubital;dd1 Medication: 13:50 VIS not applicable for this client. dd1 Outcome: 14:35 Discharge ordered by . rn 15:09 Discharged to home ambulatory, with significant other. dd1 15:09 Condition: good 15:09 Discharge instructions given to patient, family, Instructed on discharge instructions, follow up and referral plans. medication usage, Demonstrated understanding of instructions, follow-up care, medications, Prescriptions given X 1. 15:11 Patient left the ED. dd1 Signatures: Dispatcher [employer] EDMS Nicolas Tobar MD MD rn Swanson, Donovan ds4 Evie Dallas RN RN [email or web address] Juan Chavez RN RN dd1 Corrections: (The following items were deleted from the chart) 14:00 13:57 Method Of Arrival: EMS dd1 dd1
--- NOTE | 2023-03-30 14:35 | EDPHYS ---
Physician Documentation [facility] Name: Tita Elizabeth Age: 58 yrs Sex: Female : 1965 Arrival Date: 03/30/2023 Time: 13:27 Bed 5 Private MD: ED Physician Nicolas Tobar HPI: 03/30 13:41 This 58 yrs old Female presents to ER via Unassigned with complaints of worsening left rn sided pain. 13:41 The patient or guardian reports chest pain that is located primarily in the left rn lateral anterior chest. Onset: 1 week(s) ago. The pain does not radiate. Associated signs and symptoms: Pertinent positives: None. Pertinent negatives: cough, dizziness, palpitations, shortness of breath, syncope, vomiting. The chest pain is described as sharp. Duration: The patient or guardian reports multiple episodes. Modifying factors: The symptoms are alleviated by nothing. the symptoms are aggravated by movement, palpation of area. Severity of pain: At its worst the pain was moderate in the emergency department the pain is unchanged. The patient has experienced similar episodes in the past. The patient has been recently seen at the [facility] Emergency Department. Seen here recently with left sided pain, inferior rib area, in location where she previously had incision or procedure. No swelling. No fever. No trauma. Workup negative a few days ago. Reports doesn't feel better, even put on abx.. Historical: - Allergies: 13:50 Sulfa (Sulfonamide Antibiotics); dd1 - Home Meds: 13:50 aspirin 81 mg oral capsule 1 cap once [Active]; atorvastatin Oral once for dd1 hyperlipidemia [Active]; Hydrocodone-Acetaminophen Oral once [Active]; losartan Oral 1 tab once [Active]; Methocarbamol Oral [Active]; dicyclomine 10 mg Oral capsule 1 cap [Active]; - PMHx: 13:50 Arthritis; Colitis; Crohn's Disease; HTN; dd1 - PSHx: 13:50 Appendectomy; hysterectomy; kyphoplasty; Neck surgery, titanium cage; Tonsillectomy; dd1 - Immunization history:: Adult Immunizations up to date. - Family history:: not pertinent. - Social history:: Smoking status: Patient reports the use of cigarette tobacco products, smokes one pack cigarettes per day. - Hospitalizations: : No recent hospitalization is reported. ROS: 13:41 Constitutional: Negative for fever, chills, and weight loss, Cardiovascular: Negative rn for palpitations, and edema, Respiratory: Negative for shortness of breath, cough, wheezing Abdomen/GI: Negative for nausea, vomiting, diarrhea, and constipation, MS/Extremity: Negative for injury and deformity, Skin: Negative for injury, rash, and discoloration, Neuro: Negative for headache, weakness, numbness, tingling, and seizure. Exam: 13:41 Constitutional: This is a well developed, well nourished patient who is awake, alert, rn and in no acute distress. Chest/axilla: + mild tenderness at and around location of previous scar without fluctuance/induration/erythema/warmth Cardiovascular: Regular rate and rhythm. No pulse deficits. Respiratory: No increased work of breathing, no retractions or nasal flaring. Abdomen/GI: soft, no focal abd tenderness MS/ Extremity: Pulses equal, no cyanosis. Neuro: Awake and alert, GCS 15 14:42 ECG was reviewed by the Attending Physician. rn Vital Signs: 13:49 BP 119 / 78; Pulse 61; Resp 18; Pulse Ox 94% ; ko1 MDM: 13:33 Patient medically screened. rn 14:32 Differential diagnosis: acute myocardial infarction, acute pericarditis, anxiety, chest rn wall pain, costochondritis, esophagitis, gastritis, gastroesophageal reflux disease (GERD), pancreatitis, peptic ulcer disease, pericarditis, pleurisy, pneumonia, pneumothorax. Data reviewed: vital signs, nurses notes, old medical records, lab test result(s), EKG, radiologic studies, CT scan, and as a result, I will discharge patient. Counseling: I had a detailed discussion with the patient and/or guardian regarding: the historical points, exam findings, and any diagnostic results supporting the discharge/admit diagnosis, lab results, radiology results, the need for outpatient follow up, to return to the emergency department if symptoms worsen or persist or if there are any questions or concerns that arise at home. ED course: NO acute findings of focal pain found, now 2 visits, already on abx, started last night, will dc home with pain medication and pcp f/u as well as bowel regimen and laxative. Return precautions given and understood. . 03/30 13:34 Order name: Basic Metabolic Panel; Complete Time: 14:15 rn 03/30 13:34 Order name: CBC with Diff; Complete Time: 14:15 rn 03/30 13:34 Order name: Troponin HS; Complete Time: 14:15 rn 03/30 13:34 Order name: CT Chest, Abdomen, Pelvis - W/Contrast; Complete Time: 14:16 rn 03/30 13:34 Order name: EKG; Complete Time: 13:34 rn 03/30 13:34 Order name: IV Start; Complete Time: 13:50 rn 03/30 13:34 Order name: Cardiac monitoring; Complete Time: 13:34 rn 03/30 13:34 Order name: EKG - Nurse/Tech; Complete Time: 13:46 rn 03/30 13:34 Order name: Labs collected and sent; Complete Time: 13:46 rn 03/30 13:34 Order name: O2 Per Protocol; Complete Time: 13:34 rn 03/30 13:34 Order name: O2 Sat Monitoring; Complete Time: 13:34 rn EC:42 Rate is 61 beats/min. Rhythm is regular. QRS is positive in lead I and negative in lead rn aVF. WI interval is normal. QRS interval is normal. QT interval is normal. No Q waves. T waves are Normal. No ST changes noted. Clinical impression: NSR w/ Non-specific ST/T Changes. Interpreted by me. Reviewed by me. Administered Medications: 13:45 Drug: Ondansetron IVP 4 mg Route: IVP; Site: right antecubital; dd1 13:46 Drug: morphine IVP or IV 4 mg Route: IVP; Infused Over: 4 mins; Site: right antecubital;dd1 Disposition Summary: 03/30/23 14:35 Discharge Ordered Location: Home rn Problem: new rn Symptoms: have improved rn Condition: Stable rn Diagnosis - Chest pain, unspecified rn Followup: rn - With: Private Physician - When: As needed - Reason: Recheck today's complaints, Re-evaluation by your physician Discharge Instructions: - Discharge Summary Sheet rn - Nonspecific Chest Pain, Adult rn - Pain Without a Known Cause rn Forms: - Medication Reconciliation Form rn - Thank You Letter rn - Antibiotic insulation worker furnace installer - Prescription Opioid Use rn - Patient Portal Instructions rn Prescriptions: - Tramadol 50 mg Oral Tablet - take 1 tablet by ORAL route every 8 hours as needed; 12 tablet; Refills: 0, rn Product Selection Permitted Signatures: Dispatcher [employer] Nicolas Arreguin MD MD rn De Hoyos, Daniel, RN RN dd1
[2023-03-30 15:16] VITALS: BP 119/78; O2SAT 94
--- NOTE | 2023-04-03 13:17 | EKG ---
Test Date: 2023-03-30 Test Time: 13:44:02 [employer]er: GABO MEASUREMENT RESULTS: Intervals: Rate: 61 NE: 170 QRSD: 126 QT: 458 QTc: 461 [place]: P: 59 NE: 170 QRS: -35 T: -7 INTERPRETIVE STATEMENTS: Normal sinus rhythm Left axis deviation Right bundle branch block Abnormal ECG Compared to ECG 03/28/2023 08:14:01 Left-axis deviation now present Electronically Signed On 04-03-23 13:11:11 CDT by Louie Dowling
== END 2023-03-30 15:11 | disposition home or self-care (01) ==
LOC: ER 13:27
DX: R07.89 Other chest pain (principal); I10 Essential (primary) hypertension; F17.210 Nicotine dependence, cigarettes, uncomplicated; Z79.82 Long term (current) use of aspirin; Z88.2 Allergy status to sulfonamides
CPT/HCPCS: 93005; 85025; 80048; 36415; 84484; 71260; 74177; 96375; 96374; 99284; Q9967; J2405

== ENCOUNTER 2023-04-01 09:41 | Emergency (ER) | payer OTHER ==
--- OUTSIDE RECORDS SUMMARY | 2023-04-01 10:17 | XMS REPORT | Continuity of Care Document ---
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 mouth 2 capsule 00 pain with times sciatica, daily as sciatica needed for laterality Pain. unspecified cyclobenzap Yes Chronic 10mg Take 1 H arris rine 4-15 left-sided tablet by [facility] (FLEXERIL) 00:00: low back mouth 2 10 mg 00 pain with times tablet sciatica, daily as sciatica needed for laterality Muscle unspecified Spasms. gabapentin Yes Chronic 300mg Take 1 H arris (NEURONTIN) 4-15 left-sided capsule by [facility] 300 mg 00:00: low back mouth 2 capsule 00 pain with times sciatica, daily as sciatica needed for laterality Pain. unspecified cyclobenzap Yes Chronic 10mg Take 1 H arris rine 4-15 left-sided tablet by [facility] (FLEXERIL) 00:00: low back mouth 2 10 mg 00 pain with times tablet sciatica, daily as sciatica needed for laterality Muscle unspecified Spasms. gabapentin Yes Chronic 300mg Take 1 H arris (NEURONTIN) 4-15 left-sided capsule by [facility] 300 mg 00:00: low back mouth 2 capsule 00 pain with times sciatica, daily as sciatica needed for laterality Pain. unspecified cyclobenzap Yes Chronic 10mg Take 1 H arris rine 4-15 left-sided tablet by [facility] (FLEXERIL) 00:00: low back mouth 2 10 mg 00 pain with times tablet sciatica, daily as sciatica needed for laterality Muscle unspecified Spasms. gabapentin Yes Chronic 300mg Take 1 H arris (NEURONTIN) 4-15 left-sided capsule by [facility] 300 mg 00:00: low back mouth 2 capsule 00 pain with times sciatica, daily as sciatica needed for laterality Pain. unspecified cyclobenzap Yes Chronic 10mg Take 1 H arris rine 4-15 left-sided tablet by [facility] (FLEXERIL) 00:00: low back mouth 2 10 mg 00 pain with times tablet sciatica, daily as sciatica needed for laterality Muscle unspecified Spasms. gabapentin Yes Chronic 300mg Take 1 H arris (NEURONTIN) 4-15 left-sided capsule by [facility] 300 mg 00:00: low back mouth 2 capsule 00 pain with times sciatica, daily as sciatica needed for laterality Pain. unspecified cyclobenzap Yes Chronic 10mg Take 1 H arris rine 4-15 left-sided tablet by [facility] (FLEXERIL) 00:00: low back mouth 2 10 [...] H arris rine 4-15 left-sided tablet by [facility] (FLEXERIL) 00:00: low back mouth 2 10 [...] H arris rine 4-15 left-sided tablet by [facility] (FLEXERIL) 00:00: low back mouth 2 10 [...] H arris rine 4-15 left-sided tablet by [facility] (FLEXERIL) 00:00: low back mouth 2 10 mg 00 pain with times tablet sciatica, daily as sciatica needed for laterality Muscle unspecified Spasms. gabapentin Yes Chronic 300mg Take 1 H arris (NEURONTIN) 4-15 left-sided capsule by Health 300 mg 00:00: low back mouth 2 capsule 00 pain with times sciatica, daily as sciatica needed for laterality Pain. unspecified naproxen Yes 440mg Q24H Take 440 Meth floyd sodium 6-[address] (ALEVE) 220 18:26: mouth Hospi ta MG tablet 50 daily as l needed for mild pain. citalopram 2018-0 Yes 40mg QD Take 40 mg M ethodi (CeleXA) 40 6-[address] MG tablet 18:26: nightly. Hosp [facility] 50 l metoprolol 2018-0 Yes 25mg Q.[id number] Take 25 mg [facility] tartrate 6-19 [id number] mouth [address] (LOPRESSOR) 18:26: 3D [...] Meth floyd sodium 6-[address] ([employer]) 220 18:26: mouth Hospi ta MG tablet 50 daily as l needed for mild pain. citalopram 2018-0 Yes 40mg QD Take 40 mg M ethodi (CeleXA) 40 6-[address] MG tablet 18:26: nightly. Hosp t[facility] 50 l metoprolol 2018-0 Yes 25mg Q.[id number] Take 25 mg [facility] tartrate 6-[id number] mouth [address] (LOPRESSOR) 18:26: 3D [...] tasha 50 l metoprolol 2018-0 Yes 25mg Q.[id number] Take 25 mg [facility] tartrate 6-[id number] mouth [address] (LOPRESSOR) 18:26: 3D [...] tasha 50 l metoprolol 2018-0 Yes 25mg Q.[id number] Take 25 mg [facility] tartrate 6-[address] [id number] [address] mouth [address] (LOPRESSOR) 18:26: 3D [...] tasha 50 l metoprolol 2018-0 Yes 25mg Q.[id number] Take 25 mg [facility] tartrate 6-19 [id number] [address] mouth [address] (LOPRESSOR) 18:26: 3D [...] tasha 50 l metoprolol 2018-0 Yes 25mg Q.[id number] Take 25 mg [facility] tartrate 6-[id number] (LOPRESSOR) 18:26: 3D [...] tasha 50 l metoprolol 2018-0 Yes 25mg Q.[id number] Take 25 mg [facility] tartrate 6-[id number] mouth [address] (LOPRESSOR) 18:26: 3D [...] tasha 50 l metoprolol 2018-0 Yes 25mg Q.[id number] Take 25 mg [facility] tartrate 6-[id number] mouth [address] (LOPRESSOR) 18:26: 3D [...] 18:26: nightly. Hosp tasha 50 l metoprolol [id number] Yes 25mg Q.[id number] Take 25 mg [facility] tartrate 6-[address] [id number] [address] mouth [address] (LOPRESSOR) 18:26: 3D (three) Hos viral 25 mg 50 times a l tablet day. Note: Rx label states BID but pt takes TID. cyanocobala 2018-0 Yes 1{tbl} QD Take 1 Me thodi min, 6-[address] vitamin 18:26: mouth [facility]osp[facility] B-12, 50 daily. l (VITAMIN B-12 ORAL) Ativan No Notes: Memoria 9-23 (Same as: l 14:26: Ativan) [place] 00 Ativan No Notes: Memoria 9-23 (Same as: l 14:26: Ativan) [place] 00 Ativan No Notes: Memoria 9-23 (Same as: l 14:26: Ativan) [place] 00 Ativan No Notes: Memoria 9-23 (Same as: l 14:26: Ativan) [place] 00 Ativan No Notes: Memoria 9-23 (Same [...] (Same as: l 14:26: Ativan) [place] 00 Acetaminoph No Notes: Do M emoria en 05-20 not exceed l 13:34: 4 gm/day. [place] 00 (Same as: Tylenol) Acetaminoph No Notes: [...] tab, PO, l tablet 12:18: Daily, 0 [place] 00 Refill(s) Klor-Con 10 Yes 10 mEq, Mem oria 9-23 PO, Daily, l 12:18: 0 [place] 00 Refill(s) rOPINIRole Yes 1 mg = 1 Mem oria 1 mg oral 9-23 tab, PO, l tablet 12:18: Daily, 0 [place] 00 Refill(s) Klor-Con 10 Yes 10 mEq, Mem oria 9-23 PO, Daily, l 12:18: 0 [place] 00 Refill(s) rOPINIRole Yes 1 mg = 1 Mem oria 1 mg oral 9-23 tab, PO, l tablet 12:18: Daily, 0 [place] 00 Refill(s) Klor-Con 10 Yes 10 mEq, Mem oria 9-23 PO, Daily, l 12:18: 0 [place] 00 Refill(s) rOPINIRole Yes 1 mg = 1 Mem oria 1 mg oral 9-23 tab, PO, l tablet 12:18: Daily, 0 [place] 00 Refill(s) Klor-Con 10 Yes 10 mEq, Mem oria 9-23 PO, Daily, l 12:18: 0 [place] 00 Refill(s) rOPINIRole Yes 1 mg = 1 Mem oria 1 mg oral 9-23 tab, PO, l tablet 12:18: Daily, 0 [place] 00 Refill(s) Klor-Con 10 Yes 10 mEq, Mem oria 9-23 PO, Daily, l 12:18: 0 [place] 00 Refill(s) rOPINIRole Yes 1 mg = 1 Mem oria 1 mg oral 9-23 tab, PO, l tablet 12:18: Daily, 0 [place] 00 Refill(s) Klor-Con 10 Yes 10 mEq, Mem oria 9-23 PO, Daily, l 12:18: 0 [place] 00 Refill(s) rOPINIRole Yes 1 mg = 1 Mem oria 1 mg oral 9-23 tab, PO, l tablet 12:18: Daily, 0 [place] 00 Refill(s) Klor-Con 10 Yes 10 mEq, Mem oria 9-23 PO, Daily, l 12:18: 0 [place] 00 Refill(s) rOPINIRole Yes 1 mg = 1 Mem oria 1 mg oral 9-23 tab, PO, l tablet 12:18: Daily, 0 [place] 00 Refill(s) Klor-Con 10 Yes 10 mEq, Mem oria 9-23 PO, Daily, l 12:18: 0 [place] 00 Refill(s) rOPINIRole Yes 1 mg = 1 Mem oria 1 mg oral 9-23 tab, PO, l tablet 12:18: Daily, 0 [place] 00 Refill(s) Klor-Con 10 Yes 10 mEq, Mem oria 9-23 PO, Daily, l 12:18: 0 [place] 00 Refill(s) rOPINIRole Yes 1 mg = 1 Mem oria 1 mg oral 9-23 tab, PO, l tablet 12:18: Daily, 0 [place] 00 Refill(s) Klor-Con 10 Yes 10 mEq, Mem oria 9-23 PO, Daily, l 12:18: 0 [place] 00 Refill(s) rOPINIRole Yes 1 mg = 1 Mem oria 1 mg oral 9-23 tab, PO, l tablet 12:18: Daily, 0 [place] 00 Refill(s) Klor-Con 10 Yes 10 mEq, Mem oria 9-23 PO, Daily, l 12:18: 0 [place] 00 Refill(s) rOPINIRole Yes 1 mg = 1 Mem oria 1 mg oral 9-23 tab, PO, l tablet 12:18: Daily, 0 [place] 00 Refill(s) Klor-Con 10 Yes 10 mEq, [...] tab, PO, l tablet 12:18: Daily, 0 [place] 00 Refill(s) Klor-Con 10 Yes 10 mEq, Mem oria 9-23 PO, Daily, l 12:18: 0 [place] 00 Refill(s) rOPINIRole Yes 1 mg = 1 Mem oria 1 mg oral 9-23 tab, PO, l tablet 12:18: Daily, 0 [place] 00 Refill(s) Klor-Con 10 Yes 10 mEq, Mem oria 9-23 PO, Daily, l 12:18: 0 [place] 00 Refill(s) rOPINIRole Yes 1 mg = 1 Mem oria 1 mg oral 9-23 tab, PO, l tablet 12:18: Daily, 0 [place] 00 Refill(s) Klor-Con 10 Yes 10 mEq, Mem oria 9-23 PO, Daily, l 12:18: 0 [place] 00 Refill(s) rOPINIRole Yes 1 mg = 1 Mem oria 1 mg oral 9-23 tab, PO, l tablet 12:18: Daily, 0 [place] 00 Refill(s) Klor-Con 10 Yes 10 mEq, Mem oria 9-23 PO, Daily, l 12:18: 0 [place] 00 Refill(s) rOPINIRole Yes 1 mg = 1 Mem oria 1 mg oral 9-23 tab, PO, l tablet 12:18: Daily, 0 [place] 00 Refill(s) Klor-Con 10 Yes 10 mEq, Mem oria 9-23 PO, Daily, l 12:18: 0 [place] 00 Refill(s) rOPINIRole 2013- Yes 1 mg = 1 Mem oria 1 mg oral 9-23 tab, PO, l tablet 12:18: Daily, 0 [place] Refill(s) Klor-Con 10 Yes 10 mEq, Mem oria 9-23 PO, Daily, l 12:18: 0 [place] 00 Refill(s) Hydrochloro 2013-0 Yes 1 tab, [...] Yes PO, Memoria 05-19 Bedtime l 14:47: [place] 00 aripiprazol Yes 15 mg = 1 [...] PO, Memoria 05-19 Bedtime l 14:47: Ibuprofen 2013-0 Yes 800 [...] Memor ia 9-22 PO, BID l 14:46: [place] 00 Ibuprofen 2014-0 Yes 800 mg, Memor [...] 9-22 PO, BID l 14:46: 00 Miralax 0 No Notes: Memoria 5-09 Dissolve l 14:00: in 8 oz of [place] 00 water or juice. (Same as: Miralax) Miralax No Notes: Memoria 5-09 Dissolve l 14:00: in 8 oz of [place] 00 water or juice. (Same as: Miralax) Miralax No Notes: Memoria 5-09 Dissolve l 14:00: in 8 oz of [place] 00 water or juice. (Same as: Miralax) Miralax No Notes: Memoria 5-09 Dissolve l 14:00: in 8 oz of [place] 00 water or juice. (Same as: Miralax) Miralax 0 No Notes: Memoria 5-09 Dissolve l 14:00: in 8 oz of [place] 00 water or juice. (Same as: Miralax) Miralax 0 No Notes: Memoria 5-09 Dissolve l 14:00: in 8 oz of [place] 00 water or juice. (Same as: Miralax) Miralax No Notes: Memoria 5-09 Dissolve l 14:00: in 8 oz of [place] 00 water or juice. (Same as: Miralax) Miralax No Notes: Memoria 5-09 Dissolve l 14:00: in 8 oz of [place] 00 water or juice. (Same as: Miralax) Miralax No Notes: Memoria 5-09 Dissolve l 14:00: in 8 oz of [place] 00 water or juice. (Same as: Miralax) Miralax No Notes: Memoria 5-09 Dissolve l 14:00: in 8 oz of [place] 00 water or juice. (Same as: Miralax) Miralax No Notes: Memoria 5-09 Dissolve l 14:00: in 8 oz of [place] 00 water or juice. (Same as: Miralax) Miralax No Notes: Memoria 5-09 Dissolve l 14:00: in 8 oz of [place] 00 water or juice. (Same as: Miralax) Miralax No Notes: Memoria 5-09 Dissolve l 14:00: in 8 oz of [place] 00 water or juice. (Same as: Miralax) Miralax No Notes: Memoria 5-09 Dissolve l 14:00: in 8 oz of [place] 00 water or juice. (Same as: Miralax) Miralax No Notes: Memoria 5-09 Dissolve l 14:00: in 8 oz of [place] 00 water or juice. (Same as: Miralax) Miralax No Notes: Memoria 5-09 Dissolve l 14:00: in 8 oz of [place] 00 water or juice. (Same as: Miralax) Miralax No Notes: Memoria 5-09 Dissolve l 14:00: in 8 oz of [place] 00 water or juice. (Same as: Miralax) Miralax No Notes: Memoria 5-09 Dissolve l 14:00: in 8 oz of [place] 00 water or juice. (Same as: Miralax) Miralax No Notes: Memoria 5-09 Dissolve l 14:00: in 8 oz of [place] 00 water or juice. (Same as: Miralax) Dulcolax No Notes: Memoria Laxative 5-08 (Same As: l 15:24: Dulcolax, [place] 00 Bisco-Lax) Dulcolax No Notes: Memoria Laxative 5-08 (Same As: l 15:24: Dulcolax, [place] 00 Bisco-Lax) Dulcolax No Notes: [facility] Laxative 5-08 (Same As: l 15:24: Dulcolax, [place] 00 Bisco-Lax) Dulcolax No Notes: [facility] Laxative 5-08 (Same As: l 15:24: Dulcolax, [place] 00 Bisco-Lax) Dulcolax No Notes: [facility] Laxative 5-08 (Same As: l 15:24: Dulcolax, [place] 00 Bisco-Lax) Dulcolax No Notes: [facility] Laxative 5-08 (Same As: l 15:24: Dulcolax, [place] 00 Bisco-Lax) Dulcolax No Notes: [facility] Laxative 5-08 (Same As: l 15:24: Dulcolax, [place] 00 Bisco-Lax) Dulcolax No Notes: [facility] Laxative 5-08 (Same As: l 15:24: Dulcolax, [place] 00 Bisco-Lax) Dulcolax No Notes: [facility] Laxative 5-08 (Same As: l 15:24: Dulcolax, [place] 00 Bisco-Lax) Dulcolax No Notes: [facility] Laxative 5-08 (Same As: l 15:24: Dulcolax, [place] 00 Bisco-Lax) Dulcolax No Notes: [facility] Laxative 5-08 (Same As: l 15:24: Dulcolax, [place] 00 Bisco-Lax) Dulcolax No Notes: [facility] Laxative 5-08 (Same As: l 15:24: Dulcolax, [place] 00 Bisco-Lax) Dulcolax No Notes: Memoria Laxative [...] Laxative 5-08 (Same As: l 15:24: Dulcolax, [place] 00 Bisco-Lax) Dulcolax No Notes: Memoria Laxative [...] ia 5-07 (Same As: l 14:00: Entocort [place] 00 EC or Budesonide 3 mg EC / ERC) "Do Not Crush" Sertraline No Notes: Memor ia 5-07 (Same as: l 14:00: Zoloft) [place] Methocarbam No Notes: Mau agata ol 5-07 (Same l 14:00: as:Robaxin [place] 00 ) aripiprazol No Notes: Mau agata e 5-07 Non-Formul l 14:00: elva Drug. [place] 00 (Same as: ) Entocort EC No 9 mg, Memor ia 5-07 Route: PO, l 14:00: Drug form: [place] 00 ERCAP, Daily, Dosing Weight 71.818, kg, Start date: 01/01/14 9:00:00, Duration: 30 day, Stop date: 01/30/14 9:00:00 Budesonide No Notes: Memor ia 5-07 (Same As: l 14:00: Entocort [place] 00 EC or Budesonide 3 mg EC [...] 5-07 Route: PO, l 14:00: Drug form: [place] 00 ERCAP, Daily, Dosing Weight 71.818, kg, [...] ia 5-07 (Same as: l 14:00: Zoloft) [place] 00 Methocarbam No Notes: Mau agata ol 5-07 (Same l 14:00: as:Robaxin ) aripiprazol No Notes: Mau agata e 5-07 Non-Formul l 14:00: [facility]va [facility]. [place] 00 (Same as: ) Entocort EC No 9 mg, Memor ia 5-07 Route: PO, l 14:00: Drug form: [place] 00 ERCAP, Daily, Dosing Weight 71.818, kg, Start date: 01/01/14 9:00:00, Duration: 30 day, Stop date: 01/30/14 9:00:00 Budesonide No Notes: Memor ia 5-07 (Same As: l 14:00: Entocort [place] EC or Budesonide 3 mg EC / ERC) "Do Not Crush" Sertraline No Notes: Memor ia 5-07 (Same as: l 14:00: Zoloft) [place] 00 Methocarbam No Notes: Mau agata ol 5-07 (Same l 14:00: as:Robaxin ) aripiprazol No Notes: Mau agata e 5-07 Non-Formul l 14:00: [facility]. [place] 00 (Same as: ) Entocort EC No 9 mg, Memor ia 5-07 Route: PO, l 14:00: Drug form: [place] 00 ERCAP, Daily, Dosing Weight 71.818, kg, Start date: 01/01/14 9:00:00, Duration: 30 day, Stop date: 01/30/14 9:00:00 Budesonide No Notes: Memor ia 5-07 (Same As: l 14:00: Entocort [place] 00 EC or Budesonide 3 mg EC / ERC) "Do Not Crush" Sertraline No Notes: Memor ia 5-07 (Same as: l 14:00: Zoloft) [place] Methocarbam No Notes: Mau agata ol 5-07 (Same l 14:00: as:Robaxin ) aripiprazol No Notes: Mau agata e 5-07 Non-Formul l 14:00: evla [facility]. [place] 00 (Same as: ) Entocort EC No 9 mg, Memor ia 5-07 Route: PO, l 14:00: Drug form: [place] 00 ERCAP, Daily, Dosing Weight 71.818, kg, [...] e 5-07 Non-Formul l 14:00: [facility]. [place] 00 (Same as: ) Entocort EC No 9 mg, Memor ia 5-07 Route: PO, l 14:00: Drug form: [place] 00 ERCAP, Daily, Dosing Weight 71.818, kg, Start date: 01/01/14 9:00:00, Duration: 30 day, Stop date: 01/30/14 9:00:00 Budesonide No Notes: Memor ia 5-07 (Same As: l 14:00: Entocort [place] 00 EC or Budesonide 3 mg EC [...] 5-07 Route: PO, l 14:00: Drug form: [place] 00 ERCAP, Daily, Dosing Weight 71.818, kg, Start date: 01/01/14 9:00:00, Duration: 30 day, Stop date: 01/30/14 9:00:00 Budesonide No Notes: Memor ia 5-07 (Same As: l 14:00: Entocort [place] 00 EC or Budesonide 3 mg EC / ERC) "Do Not Crush" Sertraline No Notes: Memor ia 5-07 (Same as: l 14:00: Zoloft) [place] Methocarbam No Notes: Mau agata ol 5-07 (Same l 14:00: as:Robaxin [place] ) aripiprazol No Notes: Mau agata e 5-07 Non-Formul l 14:00: [facility]. [place] (Same as: rita) Entocort EC No 9 mg, Memor ia 5-07 Route: PO, l 14:00: Drug form: [place] 00 ERCAP, Daily, Dosing Weight 71.818, kg, Start date: 01/01/14 9:00:00, Duration: 30 day, Stop date: 01/30/14 9:00:00 Budesonide No Notes: Memor ia 5-07 (Same As: l 14:00: Entocort [place] 00 EC or Budesonide 3 mg EC / ERC) "Do Not Crush" Sertraline No Notes: Memor ia 5-07 (Same as: l 14:00: Zoloft) [place] 00 Methocarbam No Notes: Mau agata ol 5-07 (Same l 14:00: as:Robaxin [place] ) aripiprazol No Notes: Mau agata e 5-07 Non-Formul l 14:00: [facility]. [place] (Same as: ) Entocort EC No 9 mg, Memor ia 5-07 Route: PO, l 14:00: Drug form: [place] 00 ERCAP, Daily, Dosing Weight 71.818, kg, Start date: 01/01/14 9:00:00, Duration: 30 day, Stop date: 01/30/14 9:00:00 Budesonide No Notes: Memor ia 5-07 (Same As: l 14:00: Entocort [place] 00 EC or Budesonide 3 mg EC [...] 5-07 Route: PO, l 14:00: Drug form: [place] 00 ERCAP, Daily, Dosing Weight 71.818, kg, [...] 5-07 Route: PO, l 14:00: Drug form: [place] 00 ERCAP, Daily, Dosing Weight 71.818, kg, Start date: 01/01/14 9:00:00, Duration: 30 day, Stop date: 01/30/14 9:00:00 Budesonide No Notes: Memor ia 5-07 (Same As: l 14:00: Entocort [place] 00 EC or Budesonide 3 mg EC / ERC) "Do Not Crush" Sertraline No Notes: Memor ia 5-07 (Same as: l 14:00: Zoloft) [place] 00 Methocarbam No Notes: Mau agata ol 5-07 (Same l 14:00: as:Robaxin ) aripiprazol No Notes: Mau agata e 5-07 Non-Formul l 14:00: [facility]va [facility]. [place] 00 (Same as: ) Entocort EC No [...] ia 5-07 (Same as: l 14:00: Zoloft) [place] Methocarbam No Notes: Mau agata ol 5-07 (Same l 14:00: as:Robaxin [place] ) aripiprazol No Notes: Mau agata e 5-07 Non-Formul l 14:00: [facility]. [place] 00 (Same as: Berk[place]) Entocort EC No [...] ia 5-07 (Same as: l 14:00: Zoloft) [place] 00 Methocarbam No Notes: Mau agata ol 5-07 (Same l 14:00: as:Robaxin [place] 00 ) aripiprazol No Notes: Mau agata e 5-07 Non-Formul l 14:00: [facility]. [place] 00 (Same as: [place]) Entocort EC No [...] ia 5-07 (Same as: l 14:00: Zoloft) [place] Methocarbam No Notes: Mau agata ol 5-07 (Same l 14:00: as:Robaxin [place] ) aripiprazol No Notes: Mau agata e 5-07 Non-Formul l 14:00: [facility]. [place] 00 (Same as: Abilifdori) Entocort EC No 9 mg, Memor ia 5-07 Route: PO, l 14:00: Drug form: [place] 00 ERCAP, Daily, Dosing Weight 71.818, kg, Start date: 01/01/14 9:00:00, Duration: 30 day, Stop date: 01/30/14 9:00:00 Budesonide No Notes: Memor ia 5-07 (Same As: l 14:00: Entocort [place] 00 EC or Budesonide 3 mg EC / ERC) "Do Not Crush" Protonix No Notes: Memoria 5-07 Tablet l 12:30: should not [place] 00 be chewed or crushed. (Same as: [...] Memoria 5-07 Tablet l 12:30: should not [place] 00 be chewed or crushed. (Same as: Protonix) Protonix No Notes: Memoria 5-07 Tablet l 12:30: should not [place] 00 be chewed or crushed. (Same as: Protonix) Protonix No Notes: Memoria 5-07 Tablet l 12:30: should not [place] 00 be chewed or crushed. (Same as: Protonix) Protonix No Notes: Memoria 5-07 Tablet l 12:30: should not [place] 00 be chewed or crushed. (Same as: Protonix) Protonix No Notes: Memoria 5-07 Tablet l 12:30: should not [place] 00 be chewed or crushed. (Same as: Protonix) Protonix No Notes: Memoria 5-07 Tablet l 12:30: should not [place] 00 be chewed or crushed. (Same as: Protonix) Protonix No Notes: Memoria 5-07 Tablet l 12:30: should not [place] 00 be chewed or crushed. (Same as: Protonix) Protonix No Notes: Memoria 5-07 Tablet l 12:30: should not [place] 00 be chewed or crushed. (Same as: Protonix) Protonix No Notes: Memoria 5-07 Tablet l 12:30: should not [place] 00 be chewed or crushed. (Same as: Protonix) Protonix No Notes: Memoria 5-07 Tablet l 12:30: should not [place] 00 be chewed or crushed. (Same as: Protonix) Protonix No Notes: Memoria 5-07 Tablet l 12:30: should not [place] 00 be chewed or crushed. (Same as: Protonix) Protonix No Notes: Memoria 5-07 Tablet l 12:30: should not [place] 00 be chewed or crushed. (Same as: Protonix) Protonix No Notes: Memoria 5-07 Tablet l 12:30: should not [place] 00 be chewed or crushed. (Same as: Protonix) Protonix No Notes: Memoria 5-07 Tablet l 12:30: should not [place] 00 be chewed or crushed. (Same as: Protonix) Protonix No Notes: Memoria 5-07 Tablet l 12:30: should not [place] 00 be chewed or crushed. (Same as: Protonix) Dicyclomine No Notes: Mau agata 5-07 (Same as: l 04:30: Bentyl) [place] 00 Dicyclomine No Notes: Mau agata 5-07 (Same as: l 04:30: Bentyl) [place] Dicyclomine No Notes: Mau agata 5-07 (Same as: l 04:30: Bentyl) [place] Dicyclomine No Notes: Mau agata 5-07 (Same [...] agata 5-07 (Same as: l 04:30: Bentyl) [place] Dicyclomine No Notes: Mau agata 5-07 (Same as: l 04:30: Bentyl) [place] Dicyclomine No Notes: Mau agata 5-07 (Same as: l 04:30: Bentyl) [place] Dicyclomine No Notes: Mau agata 5-07 (Same as: l 04:30: Bentyl) [place] Dicyclomine No Notes: Mau agata 5-07 (Same as: l 04:30: Bentyl) [place] Dicyclomine No Notes: Mau agata 5-07 (Same as: l 04:30: Bentyl) [place] Dicyclomine No Notes: Mau agata 5-07 (Same as: l 04:30: Bentyl) [place] Dicyclomine No Notes: Mau agata 5-07 (Same [...] Notes: Memoria 5-07 (Same l 02:00: as:Pamelor [place] 00 , Aventyl) metoprolol No Notes: Memor ia tartrate 5-07 (Same as: l 02:00: Lopressor) [place] Trazodone No Notes: Memori a Hydrochlori 5-07 (Same As: l de 100 MG 02:00: Desyrel) Herm booker Oral Tablet 00 Zocor No Notes: Memoria 5-07 (Same as: l 02:00: Zocor) [place] Ditropan XL No Notes: Mau agata 5-07 (Same as: l 02:00: Ditropan [place] 00 XL) "Do Not Crush" Pamelor No Notes: Memoria 5-07 (Same l 02:00: as:Pamelor [place] 00 , Aventyl) metoprolol No Notes: Memor ia tartrate 5-07 (Same as: l 02:00: Lopressor) [place] Trazodone No Notes: Memori a Hydrochlori 5-07 (Same As: l de 100 MG 02:00: Desyrel) Herm booker Oral Tablet 00 Zocor No Notes: Memoria 5-07 (Same as: l 02:00: Zocor) [place] Ditropan XL No Notes: Mau agata 5-07 (Same as: l 02:00: Ditropan [place] 00 XL) "Do Not Crush" [place] No Notes: Memoria 5-07 (Same l 02:00: as:Pamelor [place] 00 , Aventyl) metoprolol No Notes: Memor ia tartrate 5-07 (Same as: l 02:00: Lopressor) [place] Trazodone No Notes: Memori a Hydrochlori 5-07 (Same As: l de 100 MG 02:00: Desyrel) Herm booker Oral Tablet 00 Zocor No Notes: Memoria 5-07 (Same as: l 02:00: Zocor) [place] Ditropan XL No Notes: Mau agata 5-07 (Same as: l 02:00: Ditropan [place] 00 XL) "Do Not Crush" [place] No Notes: Memoria 5-07 (Same l 02:00: as:[place] 00 , Aventyl) metoprolol No Notes: Memor ia tartrate 5-07 (Same as: l 02:00: Lopressor) [place] Trazodone No Notes: Memori a Hydrochlori 5-07 (Same As: l de 100 MG 02:00: Desyrel) Herm booker Oral Tablet 00 Zocor No Notes: Memoria 5-07 (Same as: l 02:00: Zocor) [place] Ditropan XL No Notes: Mau agata 5-07 (Same as: l 02:00: Ditropan [place] 00 XL) "Do Not Crush" [place] No Notes: Memoria 5-07 (Same l 02:00: as:[place] 00 , Aventyl) metoprolol No Notes: Memor [...] Notes: Memoria 5-07 (Same l 02:00: as:[place]or [place] 00 , Aventyl) metoprolol No Notes: Memor ia tartrate 5-07 (Same as: l 02:00: Lopressor) [place] Trazodone No Notes: Memori a Hydrochlori 5-07 (Same As: l de 100 MG 02:00: Desyrel) Herm booker Oral Tablet 00 Zocor No Notes: Memoria 5-07 (Same as: l 02:00: Zocor) [place] Ditropan XL No Notes: Mau agata 5-07 (Same as: l 02:00: Ditropan [place] 00 XL) "Do Not Crush" [place] No Notes: Memoria 5-07 (Same l 02:00: as:[place] [place] , Aventyl) metoprolol No Notes: Memor ia tartrate 5-07 (Same as: l 02:00: Lopressor) [place] Trazodone No Notes: Memori a Hydrochlori 5-07 (Same As: l de 100 MG 02:00: Desyrel) Herm booker Oral Tablet Zocor No Notes: Memoria 5-07 (Same as: l 02:00: Zocor) [place] Ditropan XL No Notes: Mau agata 5-07 (Same as: l 02:00: Ditropan [place] 00 XL) "Do Not Crush" P[place] No Notes: Memoria 5-07 (Same l 02:00: as:Pamelor [place] 00 , Aventyl) metoprolol No Notes: Memor ia tartrate 5-07 (Same as: l 02:00: Lopressor) [place] Trazodone No Notes: Memori a Hydrochlori 5-07 (Same As: l de 100 MG 02:00: Desyrel) [place] booker Oral Tablet 00 Zocor No Notes: [facility] 5-07 (Same as: l 02:00: Zocor) [place] Ditropan XL No Notes: Amu agata 5-07 (Same as: l 02:00: Ditropan [place] 00 XL) "Do Not Crush" [place] No [...] agata 5-07 (Same as: l 02:00: Ditropan [place] XL) "Do Not Crush" [place] No Notes: [facility]oria 5-07 (Same l 02:00: as:Pamelor [place] 00 , Aventyl) metoprolol No Notes: Memor ia tartrate 5-07 (Same as: l 02:00: Lopressor) [place] Trazodone No Notes: Memori a Hydrochlori 5-07 (Same As: l de 100 MG 02:00: Desyrel) [place] book[place] Oral Tablet 00 Zocor No Notes: [facility] 5-07 (Same as: l 02:00: Zocor) [place] Ditropan XL No Notes: Mau agata 5-07 (Same as: l 02:00: Ditropan [place] 00 XL) "Do Not Crush" [place] No [...] Notes: [facility]oria 5-07 (Same l 02:00: as:Pamelor [place] 00 , Aventyl) metoprolol No Notes: Memor ia tartrate 5-07 (Same as: l 02:00: Lopressor) [place] Trazodone No Notes: Memori a Hydrochlori 5-07 (Same As: l de 100 MG 02:00: Desyrel) [place] book[place] Oral Tablet 00 Zocor No Notes: [facility] 5-07 (Same as: l 02:00: Zocor) [place] Ditropan XL No Notes: Mau agata 5-07 (Same as: l 02:00: Ditropan [place] 00 XL) "Do Not Crush" [place] No Notes: [facility]oria 5-07 (Same l 02:00: as:Pamelor [place] 00 , Aventyl) metoprolol No Notes: Memor ia tartrate 5-07 (Same as: l 02:00: Lopressor) [place] Trazodone No Notes: Memori a Hydrochlori 5-07 (Same As: l de 100 MG 02:00: Desyrel) Herm book[place] Oral Tablet 00 Zocor No Notes: [facility] 5-07 (Same as: l 02:00: Zocor) [place] Ditropan XL No Notes: Mau gaata 5-07 (Same as: l 02:00: Ditropan [place] 00 XL) "Do Not Crush" [place] No Notes: [facility] 5-07 (Same l 02:00: as:Pamelor [place] 00 , Aventyl) metoprolol No Notes: Memor ia tartrate 5-07 (Same as: l 02:00: Lopressor) [place] Trazodone No Notes: Memori a Hydrochlori 5-07 [...] agata 5-07 (Same as: l 02:00: Ditropan [place] 00 XL) "Do Not Crush" [place] No Notes: [facility] 5-07 (Same l 02:00: as:Pamelor [place] 00 , Aventyl) metoprolol No Notes: Memor ia tartrate 5-07 (Same as: l 02:00: Lopressor) [place] Trazodone No Notes: Memori a Hydrochlori 5-07 (Same As: l de 100 MG 02:00: Desyrel) [place] book[place] Oral Tablet 00 Zocor No Notes: [facility] 5-07 (Same as: l 02:00: Zocor) [place] Ditropan XL No Notes: Mau agata 5-07 (Same as: l 02:00: Ditropan [place] 00 XL) "Do Not Crush" [place] No Notes: [facility] 5-07 (Same l 02:00: as:Pamelor [place] 00 , Aventyl) metoprolol No Notes: Memor ia tartrate 5-07 (Same as: l 02:00: Lopressor) [place] Trazodone No Notes: Memori a Hydrochlori 5-07 (Same As: l de 100 MG 02:00: Desyrel) Herm booker Oral Tablet 00 Zocor No Notes: [facility] 5-07 (Same as: l 02:00: Zocor) [place] 00 Ditropan XL No Notes: Mau agata 5-07 (Same as: l 02:00: Ditropan [place] 00 XL) "Do Not Crush" [place] No Notes: [facility]oria 5-07 (Same l 02:00: as:Pamelor [place] 00 , Aventyl) metoprolol No Notes: Memor ia tartrate 5-07 (Same as: l 02:00: Lopressor) [place] 00 Trazodone No Notes: Memori a Hydrochlori 5-07 (Same As: l de 100 MG 02:00: Desyrel) Herm booker Oral Tablet 00 Zocor No Notes: [facility] 5-07 (Same as: l 02:00: Zocor) [place] 00 Ditropan XL No Notes: Mau agata 5-07 (Same as: l 02:00: Ditropan [place] 00 XL) "Do Not Crush" [place] No Notes: [facility] 5-07 (Same l 02:00: as:Pamelor [place] 00 , Aventyl) metoprolol No Notes: Memor ia tartrate 5-07 (Same as: l 02:00: Lopressor) [place] 00 Pentasa No Notes: Memoria 5-06 (Same as: l 22:00: Pentasa) [place] 00 Do not open capsule. "Do Not Crush" Pentasa No Notes: [facility] 5-06 (Same as: l 22:00: Pentasa) [place] 00 Do not open capsule. "Do Not Crush" Pentasa No Notes: [facility] 5-06 (Same as: l 22:00: Pentasa) [place] 00 Do not open capsule. "Do Not Crush" Pentasa No Notes: [facility] 5-06 (Same as: l 22:00: Pentasa) [place] 00 Do not open capsule. "Do Not Crush" Pentasa No Notes: [facility] 5-06 (Same as: l 22:00: Pentasa) [place] 00 Do not open capsule. "Do Not Crush" Pentasa No Notes: [facility] 5-06 (Same as: l 22:00: Pentasa) [place] 00 Do not open capsule. "Do Not Crush" Pentasa 2013-0 No Notes: [facility] 5-06 (Same as: l 22:00: Pentasa) [place] 00 Do not open capsule. "Do Not Crush" Pentasa 0 No Notes: [facility] 5-06 (Same as: l 22:00: Pentasa) [place] 00 Do not open capsule. "Do Not Crush" Pentasa 0 No Notes: [facility] 5-06 (Same as: l 22:00: Pentasa) [place] 00 Do not open capsule. "Do Not Crush" Pentasa 0 No Notes: [facility] 5-06 (Same as: l 22:00: Pentasa) [place] 00 Do not open capsule. "Do Not Crush" Pentasa 0 No Notes: [facility] 5-06 (Same as: l 22:00: Pentasa) [place] 00 Do not open capsule. "Do Not Crush" Pentasa 0 No Notes: [facility] 5-06 (Same as: l 22:00: Pentasa) [place] 00 Do not open capsule. "Do Not Crush" Pentasa 0 No Notes: [facility] 5-06 (Same as: l 22:00: Pentasa) [place] 00 Do not open capsule. "Do Not Crush" Pentasa 0 No Notes: [facility] 5-06 (Same as: l 22:00: Pentasa) [place] 00 Do not open capsule. "Do Not Crush" Pentasa 0 No Notes: [facility] 5-06 (Same as: l 22:00: Pentasa) [place] 00 Do not open capsule. "Do Not Crush" Pentasa 0 No Notes: [facility] 5-06 (Same as: l 22:00: Pentasa) [place] 00 Do not open capsule. "Do Not Crush" Pentasa 2013-0 No Notes: [facility] 5-06 (Same as: l 22:00: Pentasa) [place] 00 Do not open capsule. "Do Not Crush" Pentasa 2013-0 No Notes: [facility] 5-06 (Same as: l 22:00: Pentasa) [place] 00 Do not open capsule. "Do Not Crush" Pentasa 2013-0 No Notes: [facility] 5-06 (Same as: l 22:00: Pentasa) [place] 00 Do not open capsule. "Do Not Crush" Ketorolac 2013-0 No 4 days. Mau agata Tromethamin 5-06 l e 15 MG/ML 12:43: [place] Injectable 00 Solution Ketorolac 2013-0 No 4 days. Mau agata Tromethamin 5-06 l e 15 MG/ML 12:43: [place] Injectable 00 Solution Ketorolac 2013-0 No 4 [...] Tromethamin 5-06 l e 15 MG/ML 12:43: [place] Injectable 00 Solution Ketorolac 2013-0 No 4 days. Mau agata Tromethamin 5-06 l e 15 MG/ML 12:43: [place] Injectable 00 Solution Ketorolac 2013-0 No 4 days. Mau agata Tromethamin 5-06 l e 15 MG/ML 12:43: [place] Injectable 00 Solution Ketorolac 2013-0 No 4 days. Mau agata Tromethamin 5-06 l e 15 MG/ML 12:43: [place] Injectable 00 Solution Ketorolac 2013-0 No 4 days. Mau agata Tromethamin 5-06 l e 15 MG/ML 12:43: [place] Injectable 00 Solution Ketorolac 2013-0 No 4 days. Mau agata Tromethamin 5-06 l e 15 MG/ML 12:43: [place] Injectable 00 Solution Ketorolac 2013-0 No 4 days. Mau ag[place] Tromethamin 5-06 l e 15 MG/ML 12:43: [place] Injectable 00 Solution Ketorolac 2013-0 No 4 days. Mau ag[place] Tromethamin 5-06 l e 15 MG/ML 12:43: [place] Injectable 00 Solution Ketorolac 2013-0 No 4 days. Mau ag[place] Tromethamin 5-06 l e 15 MG/ML 12:43: [place] Injectable 00 Solution Ketorolac 2013-0 No 4 days. Mau agata Tromethamin 5-06 l e 15 MG/ML 12:43: [place] Injectable 00 Solution Ketorolac 2013-0 No 4 days. Mau ag[place] Tromethamin 5-06 l e 15 MG/ML 12:43: [place] Injectable 00 Solution Ketorolac 2013-0 No 4 days. Mau ag[place] Tromethamin 5-06 l e 15 MG/ML 12:43: [place] Injectable 00 Solution Ketorolac 2013-0 No 4 days. Mau ag[place] Tromethamin 5-06 l e 15 MG/ML 12:43: [place] Injectable 00 Solution Ketorolac 2013-0 No 4 days. Mau ag[place] Tromethamin 5-06 l e 15 MG/ML 12:43: [place] Injectable 00 Solution Nicotine No Notes: Memoria 5-05 (Same as: l 22:00: Habitrol) 00 "Remove old patch before applicatio n of new patch" Nicotine No Notes: [facility] 5-05 (Same as: l 22:00: Habitrol) [place] 00 "Remove old patch before applicatio n of new patch" Nicotine No Notes: [facility] 5-05 (Same as: l 22:00: Habitrol) [place] 00 "Remove old patch before applicatio n of new patch" Nicotine No Notes: [facility] 5-05 (Same as: l 22:00: Habitrol) [place] 00 "Remove old patch before applicatio n of new patch" Nicotine No Notes: [facility] 5-05 (Same as: l 22:00: Habitrol) [place] 00 "Remove old patch before applicatio n of new patch" Nicotine No Notes: [facility] 5-05 (Same as: l 22:00: Habitrol) [place] 00 "Remove old patch before applicatio n of new patch" Nicotine No Notes: [facility] 5-05 (Same as: l 22:00: Habitrol) [place] 00 "Remove old patch before applicatio n of new patch" Nicotine No Notes: [facility] 5-05 (Same as: l 22:00: Habitrol) [place] 00 "Remove old patch before applicatio n of new patch" Nicotine 2014-0 No Notes: [facility] 5-05 (Same as: l 22:00: Habitrol) [place] 00 "Remove old patch before applicatio n of new patch" Nicotine 2013-0 No Notes: [facility] 5-05 (Same as: l 22:00: Habitrol) [place] 00 "Remove old patch before applicatio n of new patch" Nicotine No Notes: [facility] 5-05 (Same as: l 22:00: Habitrol) [place] 00 "Remove old patch before applicatio n of new patch" Nicotine No Notes: [facility] 5-05 (Same as: l 22:00: Habitrol) [place] 00 "Remove old patch before applicatio n of new patch" Nicotine 2013- No Notes: [facility] 5-05 (Same as: l 22:00: Habitrol) [place] 00 "Remove old patch before applicatio n of new patch" Nicotine No Notes: [facility] 5-05 (Same as: l 22:00: Habitrol) [place] 00 "Remove old patch before applicatio n of new patch" Nicotine 2013- No Notes: [facility] 5-05 (Same as: l 22:00: Habitrol) [place] 00 "Remove old patch before applicatio n of new patch" Nicotine 2013- No Notes: [facility] 5-05 (Same as: l 22:00: Habitrol) [place] 00 "Remove old patch before applicatio n of new patch" Nicotine No Notes: [facility] 5-05 (Same as: l 22:00: Habitrol) [place] 00 "Remove old patch before applicatio n of new patch" Nicotine 0 No Notes: [facility] 5-05 (Same as: l 22:00: Habitrol) [place] 00 "Remove old patch before applicatio n of new patch" Nicotine No Notes: [facility] 5-05 (Same as: l 22:00: Habitrol) [place] 00 "Remove old patch before applicatio n of new patch" Protonix 2013-0 No Notes: For Mem oria 5-05 IV push l 21:30: reconstitu [place] 00 te with 10 ml 0.9% sodium chloride and push over 2 minutes. (Same as: Protonix) Protonix 2013-0 No Notes: For Mem oria 5-05 IV push l 21:30: reconstitu [place] 00 te with 10 ml 0.9% sodium chloride and push over 2 minutes. (Same as: Protonix) Protonix No Notes: For Mem oria 5-05 IV push l 21:30: reconstitu [place] 00 te with 10 ml 0.9% sodium chloride and push over 2 minutes. (Same as: Protonix) Protonix No Notes: For Mem oria 5-05 IV push l 21:30: reconstitu [place] 00 te with 10 ml 0.9% sodium chloride and push over 2 minutes. (Same as: Protonix) Protonix No Notes: For Mem oria 5-05 IV push l 21:30: reconstitu [place] 00 te with 10 ml 0.9% sodium chloride and push over 2 minutes. (Same as: Protonix) Protonix No Notes: For Mem oria 5-05 IV push l 21:30: reconstitu [place] 00 te with 10 ml 0.9% sodium chloride and push over 2 minutes. (Same as: Protonix) Protonix No Notes: For Mem oria 5-05 IV push l 21:30: reconstitu [place] 00 te with 10 ml 0.9% sodium chloride and push over 2 minutes. (Same as: Protonix) Protonix No Notes: For Mem oria 5-05 IV push l 21:30: reconstitu [place] 00 te with 10 ml 0.9% sodium [...] oria 5-05 IV push l 21:30: reconstitu [place] 00 te with 10 ml 0.9% sodium chloride and push over 2 minutes. (Same as: Protonix) Protonix No Notes: For Mem oria 5-05 IV push l 21:30: reconstitu [place] 00 te with 10 ml 0.9% sodium [...] oria 5-05 IV push l 21:30: reconstitu [place] 00 te with 10 ml 0.9% sodium chloride and push over 2 minutes. (Same as: Protonix) 24 HR Yes 9 mg = 3 Memoria Budesonide 5-05 cap, PO, l 3 MG 11:54: Daily, # [place] Extended 00 90 cap, 0 Release Refill(s) [...] 4 cap, l Extended 11:54: BID, 0 [place] Release 00 Refill(s) Capsule [Pentasa] sertraline Yes 100 mg = 1 M emoria 100 mg oral 5-05 tab, PO, l tablet 11:54: Daily, # [place] 00 30 tab, 0 Refill(s) dicyclomine Yes [...] tab, PO, l Tablet 11:54: Daily, # [place] [Zantac] 00 30 tab, 0 Refill(s) Sodium [...] PO, l 3 MG 11:54: Daily, # [place] Extended 00 90 cap, 0 Release Refill(s) [...] tab, PO, l tablet 11:54: Daily, # [place] 00 30 tab, 0 Refill(s) dicyclomine Yes [...] 0 Mem[facility] Bicarbonate 5-05 Refill(s) l 11:54: [place] 00 methocarbam Yes 750 mg = 1 [...] tab, PO, l tablet 11:54: Daily, # [place] 00 30 tab, 0 Refill(s) dicyclomine Yes [...] cap, PO, l Oral 11:54: Bedtime, # [place] Capsule 00 90 cap, 0 [Pamelor] Refill(s) 24 HR Yes 10 mg = 1 [facility] Oxybutynin 5-05 tab, PO, l chloride 10 11:54: Bedtime, # [place] MG Extended 00 30 tab, 0 Release [...] 0 [facility] Bicarbonate 5-05 Refill(s) l 11:54: [place] 00 methocarbam Yes 750 mg = 1 Memoria ol 750 mg 5-05 tab, PO, l oral tablet 11:54: Daily, # [place] r[place] 00 60 tab, 0 Refill(s) Omeprazole Yes 40 mg = 1 Me moria 40 MG 5-05 cap, PO, l Enteric 11:54: Daily, # [place] n Coated 00 30 cap, 0 Capsule [...] tab, PO, l tablet 11:54: Daily, # [place] 00 30 tab, 0 Refill(s) dicyclomine Yes [...] cap, PO, l Oral 11:54: Bedtime, # [place] Capsule 00 90 cap, 0 [Pamelor] Refill(s) [...] tab, PO, l Tablet 11:54: Daily, # [place] [Zantac] 00 30 tab, 0 Refill(s) Sodium Yes 0 Mem[facility] Bicarbonate 5-05 Refill(s) l 11:54: [place] 00 methocarbam Yes 750 mg = 1 [...] tab, PO, l tablet 11:54: Daily, # [place] 00 30 tab, 0 Refill(s) dicyclomine Yes [...] cap, PO, l Oral 11:54: Bedtime, # [place] Capsule 00 90 cap, 0 [Pamelor] Refill(s) [...] PO, l 3 MG 11:54: Daily, # [place] Extended 00 90 cap, 0 Release Refill(s) [...] 4 cap, l Extended 11:54: BID, 0 [place] Release 00 Refill(s) Capsule [Pentasa] sertraline Yes [...] PO, l chloride 10 11:54: Bedtime, # [place] MG Extended 00 30 tab, 0 Release [...] 4 cap, l Extended 11:54: BID, 0 [place] Release 00 Refill(s) Capsule [Pentasa] sertraline Yes [...] cap, PO, l Oral 11:54: Bedtime, # [place] Capsule 00 90 cap, 0 [Pamelor] Refill(s) 24 HR Yes 10 mg = 1 [facility] Oxybutynin 5-05 tab, PO, l chloride 10 11:54: Bedtime, # [place] MG Extended 00 30 tab, 0 Release Refill(s) Tablet [Ditropan] Trazodone Yes 100 mg = 1 Me moria Hydrochlori 5-05 tab, PO, l de 100 MG 11:54: Bedtime, # [place] Oral Tablet 00 90 tab, 0 Refill(s) Ranitidine Yes 300 mg = 1 M emoria 300 MG Oral 5-05 tab, PO, l Tablet 11:54: Daily, # [place] [Zantac] 00 30 tab, 0 Refill(s) Sodium [...] 4 cap, l Extended 11:54: BID, 0 [place] Release 00 Refill(s) Capsule [Pentasa] sertraline Yes [...] tab, PO, l Tablet 11:54: Daily, # [place] [Zantac] 00 30 tab, 0 Refill(s) Sodium Yes 0 [facility] Bicarbonate 5-05 Refill(s) l 11:54: [place] 00 methocarbam Yes 750 mg = 1 [...] 4 cap, l Extended 11:54: BID, 0 [place] Release 00 Refill(s) Capsule [Pentasa] sertraline Yes 100 mg = 1 M emoria 100 mg oral 5-05 tab, PO, l tablet 11:54: Daily, # [place] 00 30 tab, 0 Refill(s) dicyclomine Yes [...] cap, PO, l Oral 11:54: Bedtime, # [place] Capsule 00 90 cap, 0 [Pamelor] Refill(s) [...] 0 [facility] Bicarbonate 5-05 Refill(s) l 11:54: [place] 00 methocarbam Yes 750 mg = 1 [...] 4 cap, l Extended 11:54: BID, 0 [place] Release 00 Refill(s) Capsule [Pentasa] sertraline Yes [...] PO, l 3 MG 11:54: Daily, # [place] Extended 00 90 cap, 0 Release Refill(s) [...] tab, PO, l tablet 11:54: Daily, # [place] 00 30 tab, 0 Refill(s) dicyclomine Yes [...] cap, PO, l Oral 11:54: Bedtime, # [place] Capsule 00 90 cap, 0 [Pamelor] Refill(s) [...] PO, l 3 MG 11:54: Daily, # [place] Extended 00 90 cap, 0 Release Refill(s) [...] 4 cap, l Extended 11:54: BID, 0 [place] Release 00 Refill(s) Capsule [Pentasa] sertraline Yes [...] cap, PO, l Oral 11:54: Bedtime, # [place] Capsule 00 90 cap, 0 [Pamelor] Refill(s) [...] tab, PO, l Tablet 11:54: Daily, # [place] [Zantac] 00 30 tab, 0 Refill(s) Sodium [...] tab, PO, l tablet 11:54: Daily, # [place] 00 30 tab, 0 Refill(s) dicyclomine Yes [...] PO, l chloride 10 11:54: Bedtime, # [place] MG Extended 00 30 tab, 0 Release [...] tab, PO, l tablet 11:54: Daily, # [place] 00 30 tab, 0 Refill(s) dicyclomine Yes [...] PO, l 3 MG 11:54: Daily, # [place] Extended 00 90 cap, 0 Release Refill(s) [...] 4 cap, l Extended 11:54: BID, 0 [place] Release 00 Refill(s) Capsule [Pentasa] sertraline Yes 100 mg = 1 M emoria 100 mg oral 5-05 tab, PO, l tablet 11:54: Daily, # [place] 00 30 tab, 0 Refill(s) dicyclomine Yes [...] 0 [facility] Bicarbonate 5-05 Refill(s) l 11:54: [place] 00 methocarbam Yes 750 mg = 1 [...] 4 cap, l Extended 11:54: BID, 0 [place] Release 00 Refill(s) Capsule [Pentasa] sertraline Yes 100 mg = 1 M emoria 100 mg oral 5-05 tab, PO, l tablet 11:54: Daily, # [place] 00 30 tab, 0 Refill(s) dicyclomine Yes 20 mg = 1 M emoria 20 mg oral 5-05 tab, PO, l tablet 11:54: BID, # 28 Mnocho n 00 tab, 0 Refill(s) mercaptopur Yes [...] PO, l chloride 10 11:54: Bedtime, # [place] MG Extended 00 30 tab, 0 Release Refill(s) Tablet [Ditropan] Trazodone Yes 100 mg = 1 Me moria Hydrochlori 5-05 tab, PO, l de 100 MG 11:54: Bedtime, # [place] Oral Tablet 00 90 tab, 0 Refill(s) Ranitidine Yes 300 mg = 1 M emoria 300 MG Oral 5-05 tab, PO, l Tablet 11:54: Daily, # [place] [Zantac] 00 30 tab, 0 Refill(s) Sodium Yes 0 [facility] Bicarbonate 5-05 Refill(s) l 11:54: [place] 00 methocarbam Yes 750 mg = 1 [...] PO, l 3 MG 11:54: Daily, # [place] Extended 00 90 cap, 0 Release Refill(s) [...] PO, l 3 MG 11:54: Daily, # [place] Extended 00 90 cap, 0 Release Refill(s) [...] 0 [facility] Bicarbonate 5-05 Refill(s) l 11:54: [place] 00 methocarbam Yes 750 mg = 1 [...] Notes: [facility] 5-05 (Same l 09:01: as:MORPhin [place] 00 e Sulfate) Morphine No Notes: [facility] 5-05 (Same l 09:01: as:MORPhin [place] 00 e Sulfate) Morphine No Notes: [facility] 5-05 (Same l 09:01: as:MORPhin [place] 00 e Sulfate) Morphine No Notes: [facility] 5-05 (Same l 09:01: as:MORPhin [place] 00 e Sulfate) Morphine No Notes: [facility] 5-05 (Same l 09:01: as:MORPhin [place] 00 e Sulfate) Morphine No Notes: Memoria [...] Notes: [facility] 5-05 (Same l 09:01: as:MORPhin [place] 00 e Sulfate) Morphine No Notes: [facility] 5-05 (Same l 09:01: as:MORPhin [place] 00 e Sulfate) Morphine No Notes: [facility] 5-05 (Same l 09:01: as:MORPhin [place] 00 e Sulfate) Morphine No Notes: [facility] 5-05 (Same l 09:01: as:MORPhin [place] 00 e Sulfate) Morphine No Notes: [facility] 5-05 (Same l 09:01: as:MORPhin [place] 00 e Sulfate) Morphine No Notes: [facility] 5-05 (Same l 09:01: as:MORPhin [place] 00 e Sulfate) Morphine No Notes: [facility] 5-05 (Same l 09:01: as:MORPhin [place] 00 e Sulfate) Morphine No Notes: [facility] 5-05 (Same l 09:01: as:MORPhin [place] 00 e Sulfate) Morphine No Notes: [facility] 5-05 (Same l 09:01: as:MORPhin [place] 00 e Sulfate) Zofran No Notes: [facility] 5-05 (Same as: l 09:00: Zofran) [place] Lovenox No Notes: [facility] 5-05 (Same as: [...] [facility] 5-05 (Same as: l 09:00: Zofran) [place] Lovenox No Notes: [facility] 5-05 (Same as: l 09:00: Lovenox) [place] Zofran No Notes: [facility] 5-05 (Same as: l 09:00: Zofran) [place] Lovenox No Notes: [facility] 5-05 (Same as: l 09:00: Lovenox) [place] Zofran No Notes: [facility] 5-05 (Same as: l 09:00: Zofran) [place] Lovenox No Notes: [facility] 5-05 (Same as: l 09:00: Lovenox) [place] Zofran No Notes: [facility] 5-05 (Same as: l 09:00: Zofran) [place] Lovenox No Notes: [facility] 5-05 (Same as: l 09:00: Lovenox) [place] Zofran No Notes: [facility] 5-05 (Same as: l 09:00: Zofran) [place] Lovenox No Notes: [facility] 5-05 (Same as: l 09:00: Lovenox) [place] 00 Zofran No Notes: [facility] 5-05 (Same as: l 09:00: Zofran) [place] 00 Lovenox No Notes: [facility] 5-05 (Same as: l 09:00: Lovenox) [place] 00 Zofran No Notes: [facility] 5-05 (Same as: l 09:00: Zofran) [place] 00 Lovenox No Notes: [facility] 5-05 (Same as: l 09:00: Lovenox) [place] 00 Zofran No Notes: [facility] 5-05 (Same as: l 09:00: Zofran) [place] 00 Lovenox No Notes: [facility] 5-05 (Same as: l 09:00: Lovenox) [place] 00 Zofran No Notes: [facility] 5-05 (Same as: l 09:00: Zofran) [place] 00 Lovenox No Notes: [facility] 5-05 (Same as: l 09:00: Lovenox) [place] 00 Zofran No Notes: [facility] 5-05 (Same as: l 09:00: Zofran) [place] 00 Lovenox No Notes: [facility] 5-05 (Same as: l 09:00: Lovenox) [place] 00 Zofran No Notes: [facility] 5-05 (Same as: l 09:00: Zofran) [place] 00 Lovenox No Notes: [facility] 5-05 (Same as: l 09:00: Lovenox) [place] 00 Zofran No Notes: [facility] 5-05 (Same as: l 09:00: Zofran) [place] Lovenox No Notes: [facility] 5-05 (Same as: l 09:00: Lovenox) [place] 00 Zofran No Notes: [facility] 5-05 (Same as: l 09:00: Zofran) [place] 00 Lovenox No Notes: [facility] 5-05 (Same as: l 09:00: Lovenox) [place] Zofran 2014-0 No Notes: [facility] 5-05 (Same as: l 09:00: Zofran) Lovenox No Notes: [facility] 5-05 (Same as: l 09:00: Lovenox) [place] 00 Zofran No Notes: [facility] 5-05 (Same as: l 09:00: Zofran) Lovenox No Notes: [facility] 5-05 (Same as: l 09:00: Lovenox) Zofran No Notes: [facility] 5-05 (Same as: l 09:00: Zofran) Lovenox No Notes: [facility] 5-05 (Same as: l 09:00: Lovenox) normal 0 No 1,000 mL, Memori a saline 0.9% [...] Immunizations Ordered Filled Immunization Date Status Comments [facility] e Immunization Name Name SARS-COV-2 COVID-19 [...] Unive rsity of MODERNA 12+ YRS 00:00:00 [facility] VACCINE [facility] SARS-COV-2 COVID-19 2021-04-17 Completed Unive rsity of MODERNA 12+ YRS 00:00:00 [facility] VACCINE [facility] Tdap 2018-04-13 Completed [facility] 00:00:00 [facility] 2018-04-13 Completed Jewish 00:00:00 [facility] 2018-04-13 Completed Jewish 00:00:00 [facility] 2018-04-13 Completed Jewish 00:00:00 [facility] 2018-04-13 Completed Jewish 00:00:00 [facility] 2018-04-13 Completed Jewish 00:00:00 [facility] 2018-04-13 Completed Jewish 00:00:00 [facility] 2018-04-13 Completed Jewish 00:00:00 [facility] 2018-04-13 Completed Jewish 00:00:00 [facility] 2018-04-13 Completed [facility] 00[facility]00 [facility] 2018-04-13 Completed [facility] 00:00:00 [facility] 2018-04-13 Completed [facility] 00[facility]00:00 [facility] 2018-04-13 Completed [facility] 00:00:00 [facility] 2018-04-13 Completed [facility] 00:00:00 [facility] 2018-04-13 Completed [facility] 00:00:00 [facility] 2018-04-13 Completed [facility] 00:00:00 [facility] Vital Signs Vital Name Observation Time Observation Value Comments Source WEIGHT 2023-03-14 12:02:00 60.646 kg WEIGHT 2023-03-14 12:02:00 60.646 kg WEIGHT 2023-01-10 13:58:00 60.51 kg WEIGHT 2023-01-10 13:58:00 60.51 kg Systolic blood 2022-12-06 18:27:00 120 mm[Hg] [facility]iver [facility] pressure [facility] Diastolic blood 2022-12-06 18:27:00 75 mm[Hg] Unive rsity of pressure [facility] Heart rate 2022-12-06 18:27:00 54 /min [facility] Respiratory rate 2022-12-06 18:27:00 16 /min [facility] Body height 2022-12-06 18:27:00 154.9 cm [facility] Body weight 2022-12-06 18:27:00 58.786 kg [facility] BMI 2022-12-06 18:27:00 24.49 kg/m2 [facility] Oxygen saturation in 2022-12-06 18:27:00 93 /min [facility] Arterial blood by [facility] Pulse oximetry Branch HEIGHT 2022-09-13 11:50:00 [...] 15:18:00 160 mm[Hg] Univer [facility]ity of pressure [facility] Diastolic blood 2021-11-30 15:18:00 82 mm[Hg] Unive rsity of pressure [facility] Heart rate 2021-11-30 14:45:00 59 /[facility] Body temperature 2021-11-30 14:45:00 36.56 [facility] of [facility] Respiratory rate 2021-11-30 14:45:00 18 /min [facility] Body height 2021-11-30 14:45:00 154.9 cm [facility] Body weight 2021-11-30 14:45:00 58.832 kg [facility] BMI 2021-11-30 14:45:00 24.51 kg/m2 [facility] Heart rate 2022-09-13 11:50:00 60 /min [facility] Body temperature 2022-09-13 11:50:00 36.22 Carla [facility] Respiratory rate 2022-09-13 11:50:00 16 /min [facility] Body height 2022-09-13 11:50:00 153.7 cm actual [facility] Body weight 2022-09-13 11:50:00 58.741 kg [facility] BMI 2022-09-13 11:50:00 24.87 kg/m2 [facility] Oxygen saturation in 2022-09-13 11:50:00 96 /min [facility] Arterial blood by [facility] Pulse oximetry Systolic blood 2022-06-21 14:37:00 154 mm[Hg] [facility] Diastolic blood 2022-06-21 14:37:00 85 mm[Hg] [facility] Heart rate 2022-06-21 14:37:00 86 /min [facility] Body temperature 2022-06-21 14:37:00 36.28 Carla [facility] Respiratory rate 2022-06-21 14:37:00 18 /min [facility] Body height 2022-06-21 14:37:00 154.9 cm [facility] Body weight 2022-06-21 14:37:00 58.65 kg [facility] BMI 2022-06-21 14:37:00 24.43 kg/m2 [facility] Oxygen saturation in 2022-06-21 14:37:00 95 /min [facility] Arterial blood by [facility] Pulse oximetry Weight 2014-05-16 14:54:00 Morenita Agrawal BMI Calculated 2014-05-16 14:54:00 Morgan Mcacnn Height 2014-05-16 14:54:[address] [facility] Respitory Rate 2014-01-02 20:58:00 [facility] [place] Heart Rate 2014-01-02 20:58:00 [facility] Temperature Oral (F) 2014-01-02 20:58:00 98.4 F [facility] Diastolic (mm Hg) 2014-01-02 20:58:00 [facility] Systolic (mm Hg) 2014-01-02 20:58:00 [facility] Temperature Oral (F) 2014-01-02 16:23:00 98.2 F [facility] Heart Rate 2014-01-02 16:23:00 [facility] [place] Respitory Rate 2014-01-02 16:23:00 [facility] Systolic (mm Hg) 2014-01-02 16:23:00 [facility] [place] Diastolic (mm Hg) 2014-01-02 16:23:00 [facility] [place] Diastolic (mm Hg) 2014-01-02 12:20:00 [facility] [place] Systolic (mm Hg) 2014-01-02 12:20:00 [facility] Respitory Rate 2014-01-02 12:20:00 [facility] Temperature Oral (F) 2014-01-02 12:20:00 98.5 F [facility] [place] Heart Rate 2014-01-02 12:20:00 [facility] [place] Weight 2013-12-30 08:54:00 [facility] Height 2013-12-30 08:54:00 162.56 cm [facility] BMI Calculated 2013-12-30 08:54:00 [facility] Weight 2013-12-30 08:52:00 [facility] BMI Calculated 2013-12-30 08:52:00 [facility] [place] Height 2013-12-30 08:52:00 162.56 cm [facility] Weight 2013-12-30 08:40:00 [facility] [place] BMI Calculated 2013-12-30 08:40:00 [facility] [place] Height 2013-12-30 08:40:00 162.56 cm [facility] Procedures Procedure Date / Time Performing Clinician Source Performed ASSIGNMENT OF BENEFITS 2022-12-06 18:06:09 Doctor Unassigned, No [facility] CBC W/PLT COUNT & AUTO 2022-09-13 11:59:00 Jae Lim [facility] COMPREHENSIVE METABOLIC 2022-09-13 11:59[facility] W/[facility]T COUNT & AUTO 2022-09-13 11:59:00 Deep [facility] DIFFERENTIAL Center CT HEART-CORONARY 2022-07-18 15:37:00 Johnny Pantoja [facility] ARTERIES CALCIUM SCORE Center SCREENING WITHOUT IV CONTRAST 2D ECHO W/ DOPPLER 2022-07-18 13:04:08 MonananetteMickeyJohnny [facility] (CW/PW/COLOR) [place] ECG 12-LEAD 2022-06-21 14:31:[address] [facility] ECG 12-LEAD 2022-06-21 14:31:02 Unknown, Hl7 [facility] CBC W/PLT COUNT & AUTO 2022-06-21 14:30:00 Rylan[facility]adia healthcare[facility] DIFFERENTIAL Center COMPREHENSIVE METABOLIC 2022-06-21 14:30:00 Rylanacadia healthcare[facility] PANEL Center CBC W/PLT COUNT & AUTO 2022-06-21 14:30:00 [facility] DIFFERENTIAL Center NM MYOCARDIAL PERFUSION 2022-05-16 16:14:00 [facility]ylan[facility]adia [facility] SPECT, PHARM Center APTT 2022-05-16 15:02:00 [facility] TREADMILL 2022-05-16 13:51:06 Unknown, Hl7 [facility] TOLERANCE(NON-NUCLEAR Center TREADMILL) ECG 12-LEAD 2022-05-16 13:28:19 Unknown, Hl7 [facility] ECG 12-LEAD 2022-05-16 13:28:19 Unknown, Hl7 [facility] ECG 12-LEAD 2022-05-16 13:27:51 Unknown, 7 [facility] ECG 12-LEAD 2022-05-16 13:27:51 Unknown, 7 [facility] APTT 2022-05-16 03:57:00 [facility] CBC (HEMOGRAM ONLY) 2022-05-16 03:57:00 Leanne Mcdonnell [facility] BASIC METABOLIC PANEL 2022-05-16 03:57:00 Leanne Mcdonnell [facility] MAGNESIUM 2022-05-16 03:57:00 Leanne Mcdonnell [facility] APTT 2022-05-15 16:09:00 [facility] CBC (HEMOGRAM ONLY) 2022-05-15 05:43:00 Noé, [facility] APTT 2022-05-15 05:43:00 [facility] ECG 12-LEAD 2022-05-15 01:50:44 [facility] ECG 12-LEAD 2022-05-15 01:50:44 Unknown, Hl7 [facility] HIGH SENSITIVITY 2022-05-15 01:30:00 [facility] TROPONIN I [place] ECG 12-LEAD 2022-05-14 23:03:01 [facility] 2022-05-14 23:03:01 Unknown, Hl7 [facility] PLATELET COUNT 2022-05-14 22:47:00 [facility] APTT 2022-05-14 22:47:00 [facility] LIPID PANEL 2022-05-14 22:47:00 [facility] HIGH SENSITIVITY 2022-05-14 22:47:00 [facility] TROPONIN I [place] SARS-COV2/RT-PCR ([facility] & 2022-05-14 21:18:00 [facility] REF LABS) Center HIGH SENSITIVITY 2022-05-14 18:33:00 [facility] ECG 12-LEAD 2022-05-14 18:29:48 Andrew Martinuzzi, [facility] ECG 12-LEAD 2022-05-14 18:29:48 Unknown, Hl7 Doctor [facility] CBC W/PLT COUNT & AUTO 2022-05-14 16:55:00 Andrew Hernandez [facility] DIFFERENTIAL [facility] CBC W/PLT COUNT & AUTO 2022-05-14 16:55:00 Andrew Hernandez [facility] DIFFERENTIAL [facility] COMPREHENSIVE METABOLIC 2022-05-14 16:55:00 Andrew Hernandez [facility] PANEL [facility] HIGH SENSITIVITY 2022-05-14 16:55:00 Andrew Mishra [facility] TROPONIN I [facility] XR CHEST 2 VIEWS 2022-05-14 16:30:00 Andrew Hernandez [facility] ECG 12-LEAD 2022-05-14 16:13:36 Unknown, Hl7 Doctor [facility] ECG 12-LEAD 2022-05-14 16:13:36 NoéClaudia S [facility] EKG-SCANNED 2022-05-14 00:00:00 Provider, Default [facility] Abdominal aorta [facility] angiogram Abdominal hysterectomy [facility] Angiography of renal [facility] arteries, bilateral Appendectomy [facility] Superior mesenteric [facility] angiography Suspension of bladder [facility] Tonsillectomy [facility] Bladder augmentation [facility] Plan of Care Planned Activity Planned [...] Luke s Test 00:00:00 (procedure) [code = [facility] [id number]] Future Scheduled 2025-05-[address] [facility] Test 00:00:00 (procedure) [code = [facility] [id number]] Future Scheduled 2025-05-[address] [facility] Test 00:00:00 (procedure) [code = [facility] [id number]] Future Scheduled 2025-05-[address] [facility] Test 00:00:00 (procedure) [code = [facility] [id number]] Future Scheduled 2025-05-[address] [facility] Test 00:00:00 (procedure) [code = [facility] 86285171] Future Scheduled 2025-05-[address] [facility] Test 00:00:00 (procedure) [code = [facility] 02334466] Future Scheduled 2023-05-28 IMM Influenza Seasonal H [...] [facility] Test 00:00:00 (Season Ended) [code = [facility] INFLUENZA VACCINE (Season Ended)] Future Scheduled 2023-03-29 [facility] Test 14:50:14 malignant neoplasm of colon (procedure) [code = 448129516] Future Scheduled 2023-03-29 [facility] Test 14:50:14 malignant neoplasm of colon (procedure) [code = 772564338] Future Scheduled 2023-03-29 [facility] Test 14:50:14 malignant neoplasm of colon (procedure) [code = 557083714] Future Scheduled 2023-03-29 COVID-19 [facility]ACCINE (#[facility]14 [code = COVID-19 VACCINE (#1)] Future Scheduled 2023-03-29 [facility] Test 14:50:14 malignant neoplasm of cervix (procedure) [code = 739358415] Future Scheduled 2023-03-29 [facility] Test 14:50:14 malignant neoplasm of colon (procedure) [code = 323428041] Future Scheduled 2023-03-29 [facility] Test 14:50:14 malignant neoplasm of colon (procedure) [code = 832936083] Future Scheduled 2023-03-29 SHINGLES VACCINES (1 [facility] 14:50:14 of 2) [code = SHINGLES VACCINES (1 of 2)] Future Scheduled 2023-03-29 BREAST CANCER [facility] Test 14:50:14 SCREENING [code = BREAST CANCER SCREENING] Future Scheduled 2023-03-29 INFLUENZA VACCINE [facility] 14:50:14 [code = INFLUENZA VACCINE] Future Scheduled 2023-03-29 [facility] Test 14:50:14 malignant neoplasm of colon (procedure) [code = 543119571] Future Scheduled 2023-03-29 [facility] Test 14:50:14 malignant neoplasm of colon (procedure) [code = 783489454] Future Scheduled 2023-03-29 [facility] Test 14:50:14 malignant neoplasm of colon (procedure) [code = 690401238] Future Scheduled 2023-03-29 COVID-19 VACCINE (#1) [facility] 14:50:14 [code = COVID-19 VACCINE (#1)] Future Scheduled 2023-03-29 [facility] Test 14:50:14 malignant neoplasm of cervix (procedure) [code = 265821238] Future Scheduled 2023-03-29 [facility] Test 14:50:14 malignant neoplasm of colon (procedure) [code = 711115541] Future Scheduled 2023-03-29 [facility] Test 14:50:14 malignant neoplasm of colon (procedure) [code = 746162039] Future Scheduled 2023-03-29 SHINGLES VACCINES (1 [facility] 14:50:14 of 2) [code = SHINGLES VACCINES (1 of 2)] Future Scheduled 2023-03-29 BREAST CANCER [facility] Test 14:50:14 SCREENING [code = BREAST CANCER SCREENING] Future Scheduled 2023-03-29 INFLUENZA VACCINE [facility] Test 14:50:14 [code = INFLUENZA VACCINE] Future Scheduled 2023-03-01 [facility] Test 14:23:18 malignant neoplasm of colon (procedure) [code = 834057079] Future Scheduled 2023-03-01 [facility] Test 14:23:18 malignant neoplasm of colon (procedure) [code = 171939032] Future Scheduled 2023-03-01 [facility] Test 14:23:18 malignant neoplasm of colon (procedure) [code = 152903903] Future Scheduled 2023-03-01 COVID[facility]19 [facility]:23[facility]18 [code = COVID-19 VACCINE (#1)] Future Scheduled 2023-03-01 [facility] Test 14:23:18 malignant neoplasm of cervix (procedure) [code = 184537867] Future Scheduled 2023-03-01 [facility] Test 14:23:18 malignant neoplasm of colon (procedure) [code = 735713444] Future Scheduled 2023-03-01 [facility] Test 14:23:18 malignant neoplasm of colon (procedure) [code = 437302104] Future Scheduled 2023-03-01 SHINGLES VACCINES (1 Met [facility] Test 14:23:18 of 2) [code = SHINGLES VACCINES (1 of 2)] Future Scheduled 2023-03-01 BRE[facility] CANCER [facility] Test 14:23:18 SCREENING [code = BREAST CANCER SCREENING] Future Scheduled 2023-03-01 INFLUENZA VACCINE Method [facility] Test 14:23:18 [code = INFLUENZA VACCINE] Future Scheduled 2023-01-17 Hepatitis C screening [facility] Test 07:58:38 (procedure) [code = 289685599] Future Scheduled 2023-01-17 Screening for [facility] Test 07:58:38 malignant neoplasm of cervix (procedure) [code = 614612092] Future Scheduled 2023-01-17 COLONOSCOPY SCREENING [facility] Test 07:58:38 [code = COLONOSCOPY SCREENING] Future Scheduled 2023-01-17 SHINGLES VACCINES (1 Met [facility] Test 07:58:38 of 2) [code = SHINGLES VACCINES (1 of 2)] Future Scheduled 2023-01-17 BREAST CANCER [facility] Test 07:58:38 SCREENING [code = BREAST CANCER SCREENING] Future Scheduled 2023-01-17 INFLUENZA VACCINE Method [facility] Test 07:58:38 [code = INFLUENZA VACCINE] Future Scheduled 2023-01-17 COVID-19 VACCINE (#1) [facility] Test 07:58:38 [code = COVID-19 VACCINE (#1)] Future Scheduled 2023-01-17 Pneumococcal Vaccine: [facility] Test 07:58:38 Pediatrics (0 to [...] IPPE)] Future Scheduled 2022-08-17 COVID-19 VACCINE (#1) [facility] Test 18:22:05 [code = COVID-19 VACCINE (#1)] Future Scheduled 2022-08-17 [facility] 18:22:05 malignant neoplasm of cervix (procedure) [code = 902163066] Future Scheduled 2022-08-17 COLONOSCOPY SCREENING [facility] Test 18:22:05 [code = COLONOSCOPY SCREENING] Future Scheduled 2022-08-17 SHINGLES VACCINES (1 [facility] 18:22:05 of 2) [code = SHINGLES VACCINES (1 of 2)] Future Scheduled 2022-08-17 [facility] Test 18:22:05 SCREENING [code = BREAST CANCER SCREENING] Future Scheduled 2022-08-17 INFLUENZA VACCINE [facility] Test 18:22:05 [code = INFLUENZA VACCINE] Future Scheduled 2022-08-17 COVID-19 VACCINE (#1) [facility] Hospital Test 18:22:05 [code = COVID-19 VACCINE (#1)] Future Scheduled 2022-08-17 [facility] 18:22:05 malignant neoplasm of cervix (procedure) [code = 045846832] Future Scheduled 2022-08-17 COLONOSCOPY SCREENING [facility] Test 18:22:05 [code = COLONOSCOPY SCREENING] Future Scheduled 2022-08-17 SHINGLES VACCINES (1 Met [facility] Test 18:22:05 of 2) [code = SHINGLES VACCINES (1 of 2)] Future Scheduled 2022-08-17 BRE[facility] CANCER [facility] Test 18:22:05 SCREENING [code = BREAST CANCER SCREENING] Future Scheduled 2022-08-17 INFLUENZA VACCINE Method [facility] Test 18:22:05 [code = INFLUENZA VACCINE] Future Scheduled 2022-08-17 COVID-19 VACCINE (#1) [facility] Test 18:22:05 [code = COVID-19 VACCINE (#1)] Future Scheduled 2022-08-17 [facility] 18:22:05 malignant neoplasm of cervix (procedure) [code = 853428350] Future Scheduled 2022-08-17 COLONOSCOPY SCREENING [facility] Test 18:22:05 [code = COLONOSCOPY SCREENING] Future Scheduled 2022-08-17 SHINGLES VACCINES (1 [facility] Test 18:22:05 of 2) [code = SHINGLES VACCINES (1 of 2)] Future Scheduled 2022-08-17 [facility] Test 18:22:05 SCREENING [code = BREAST CANCER SCREENING] Future Scheduled 2022-08-17 INFLUENZA VACCINE [facility] Test 18:22:05 [code = INFLUENZA VACCINE] [...] Future Scheduled 2022-04-26 HEPATITIS B VACCINES [facility] Test 16:18:33 (1 of 3 - 3-dose series) [code = HEPATITIS B VACCINES (1 of 3 - 3-dose series)] Future Scheduled 2022-04-26 COVID-19 VACCINE (#1) [facility] Hospital Test 16:18:33 [code = COVID-19 VACCINE (#1)] Future Scheduled 2022-04-26 Screening for [facility] Test 16:18:33 malignant neoplasm of cervix (procedure) [code = 824188588] Future Scheduled 2022-04-26 COLONOSCOPY SCREENING [facility] Hospital Test 16:18:33 [code = COLONOSCOPY SCREENING] Future Scheduled 2022-04-26 SHINGLES VACCINES (1 [facility] Test 16:18:33 of 2) [code = SHINGLES VACCINES (1 of 2)] Future Scheduled 2022-04-26 [facility] Test 16:18:33 SCREENING [code = BREAST CANCER SCREENING] Future Scheduled 2022-04-26 INFLUENZA VACCINE [facility] Test 16:18:33 [code = INFLUENZA VACCINE] Future Scheduled 2021-11-03 COVID-19 VACCINE (1) [facility] Test 06:47:29 [code = COVID-19 VACCINE (1)] Future Scheduled 2021-11-03 [facility] Test 06:47:29 malignant neoplasm of cervix (procedure) [code = 013046836] Future Scheduled 2021-11-03 COLONOSCOPY SCREENING [facility] Test 06:47:29 [code = COLONOSCOPY SCREENING] Future Scheduled 2021-11-03 SHINGLES VACCINES (#1) [facility] Test 06:47:29 [code = SHINGLES VACCINES (#1)] Future Scheduled 2021-11-03 BRE[facility]ER [facility] Test 06:47:29 SCREENING [code = BREAST CANCER SCREENING] Future Scheduled 2021-11-03 INFLUENZA VACCINE [facility] Test 06:47:29 [code = INFLUENZA VACCINE] [...] Future Scheduled 2021-05-28 IMM Influenza [facility] Test 00:00:00 May to October (>/= [...] malignant neoplasm of colon (procedure) [code = 702261701] Future Scheduled 2013 [facility]00 malignant neoplasm of colon (procedure) [code = 153916886] Future Scheduled 2013 [facility] 00:00:00 malignant neoplasm of colon (procedure) [code = 484076044] Future Scheduled 2013 [facility] 00:00:00 malignant neoplasm of colon (procedure) [code = 805740021] Future Scheduled 2013 [facility] 00:00:00 malignant neoplasm of colon (procedure) [code = 834895390] Future Scheduled 2013 [facility] 00:00:00 malignant neoplasm of colon (procedure) [code = 356575082] Future Scheduled 2013 [facility] 00:00:00 malignant neoplasm of colon (procedure) [code = 365285331] Future Scheduled 2013 [facility] 00:00:00 malignant neoplasm of colon (procedure) [code = 350510292] Future Scheduled 2013 [facility] 00:00:00 malignant neoplasm of colon (procedure) [code = 458635226] Future Scheduled 2013 [facility] 00:00:00 malignant neoplasm of colon (procedure) [code = 596443462] Future Scheduled 2013 [facility] 00:00:00 malignant neoplasm of colon (procedure) [code = 598361166] Future Scheduled 2013 [facility] 00:00:00 malignant neoplasm of colon (procedure) [code = 480585631] Future Scheduled 2013 SHINGLES VACCINES (1 [facility] [...] malignant neoplasm of cervix (procedure) [code = 039981511] Future Scheduled 1993 [facility] 00:00:00 malignant neoplasm of cervix (procedure) [code = 423579190] Future Scheduled 1993 [facility] 00:00:00 malignant neoplasm of cervix (procedure) [code = 233975113] Future Scheduled 1993 [facility] 00:00:00 malignant neoplasm of cervix (procedure) [code = 517013826] Future Scheduled 1993 [facility] 00:00:00 malignant neoplasm of cervix (procedure) [code = 661759844] Future Scheduled 1993 [facility] 00:00:00 malignant neoplasm of cervix (procedure) [code = 739053573] Future Scheduled 1993 [facility] 00:00:00 malignant neoplasm of cervix (procedure) [code = 577235660] Future Scheduled 1993 [facility] 00:00:00 malignant neoplasm of cervix (procedure) [code = 676513210] Future Scheduled 1993 [facility]:00 malignant neoplasm of cervix (procedure) [code = 818446308] Future Scheduled 1993 [facility] 00:00:00 malignant neoplasm of cervix (procedure) [code = 725133186] Future Scheduled 1993 [facility] 00:00:00 malignant neoplasm of cervix (procedure) [code = 215994683] Future Scheduled 1993 [facility] 00:00:00 malignant neoplasm of cervix (procedure) [code = 373527482] Future Scheduled 1993 [facility] 00:00:00 malignant neoplasm of cervix (procedure) [code = 929546857] Future Scheduled 1993 [facility] 00:00:00 malignant neoplasm of cervix (procedure) [code = 622339596] Future Scheduled 1993 [facility] 00:00:00 malignant neoplasm of cervix (procedure) [code = 291657098] Future Scheduled 1993 [facility] 00:00:00 malignant neoplasm of cervix (procedure) [code = 118126730] Future Scheduled 1993 [facility] 00:00:00 malignant neoplasm of cervix (procedure) [code = 014790529] Future Scheduled 1993 [facility] 00:00:00 malignant neoplasm of cervix (procedure) [code = 807097906] Future Scheduled 1993 [facility] 00:00:00 malignant neoplasm of cervix (procedure) [code = 987519369] Future Scheduled 1993 [facility] 00:00:00 malignant neoplasm of cervix (procedure) [code = 144634684] Future Scheduled 1993 [facility] 00:00:00 malignant neoplasm of cervix (procedure) [code = 549101497] Future Scheduled 1993 [facility] 00:00:00 malignant neoplasm of cervix (procedure) [code = 944327878] Future Scheduled 1993 [facility] 00:00:00 malignant neoplasm of cervix (procedure) [code = 778318415] Future Scheduled 1993 [facility] 00:00:00 malignant neoplasm of cervix (procedure) [code = 101865494] Future Scheduled 1984-02-[address] [facility] cerv[facility] (procedure) [code = 524459187] Future Scheduled 1984-02-[address] [facility] [facility] Test 00:00:00 [facility] cervix (procedure) [code = 273348949] Future Scheduled 1984-02-[address] [facility] Test 00:00:00 [facility] cervix (procedure) [code = 848603448] Future Scheduled 1984-02-[address] [facility] Test 00:00:00 [facility] cervix (procedure) [code = 454582774] Future Scheduled 1984-02-[address] [facility] Test 00:00:00 [facility] cervix (procedure) [code = 027071353] Future Scheduled 1984-02-[address] [facility] Test 00:00:00 [facility] cervix (procedure) [code = 681082245] Future Scheduled 1981 HEPATITIS C SCREENING CH [...] Vaccine (#1)] Future Scheduled [address] [facility] Test 00:00:00 [facility] colon (procedure) [code = 030475809] Future Scheduled [address] [facility] Test 00:00:00 [facility] colon (procedure) [code = 279373877] Future Scheduled 1963 Sigmoidoscopy [facility] Future Scheduled [address] [facility] Test 00:00:00 [facility] breast (procedure) [code = 086887077] Future Scheduled [address] [facility] Test 00:00:00 (combo) [code = CT Medical C enter Colonography (combo)] Future Scheduled [address] [facility] colon (procedure) [code = 957410841] Future Scheduled [address] [facility] 00[facility]00[facility]00 [facility] colon (procedure) [code = 791024236] Future Scheduled [address] [facility] 00:00:00 [facility] colon (procedure) [code = 461338092] Future Scheduled [address] [facility] 00:00:00 malignant [facility] colon (procedure) [code = 992504347] Future Scheduled 1965 S[facility]oid[facility] r Future Scheduled [address] [facility] 00:00:00 malignant [facility] breast (procedure) [code = 172162887] Future Scheduled [address] [facility] 00:00:00 (combo) [code = CT Medical C enter Colonography (combo)] Future Scheduled [address] [facility] 00:00:00 [facility] colon (procedure) [code = 793854124] Future Scheduled [address] [facility] 00:00:00 [facility] colon (procedure) [code = 637226230] Future Scheduled [address] [facility] 00:00:00 [facility] colon (procedure) [code = 269333019] Future Scheduled [address] [facility] 00:00:00 [facility] colon (procedure) [code = 262164290] Future Scheduled 1963 S[facility]oidoscopy [facility]] [facility] r Future Scheduled [address] [facility] 00:00:00 [facility] breast (procedure) [code = 161187204] Future Scheduled [address] [facility] 00:00:00 (combo) [code = CT Medical C enter Colonography (combo)] Future Scheduled [address] [facility] 00:00:00 [facility] colon (procedure) [code = 769092983] Future Scheduled [address] [facility] 00:00:00 [facility] colon (procedure) [code = 086069264] Future Scheduled [address] [facility] 00:00:00 [facility] colon (procedure) [code = 140840139] Future Scheduled [address] [facility] 00:00:00 [facility] colon (procedure) [code = 728263321] Future Scheduled 1963 S[facility]oscopy [facility]] Medical Cent[facility] r Future Scheduled 1963 Fluoride Varnish [facility] = Fluoride Varnish] Future Scheduled [address] [facility] 00:00:00 malignant [facility] breast (procedure) [code = 927482887] Future Scheduled [address] [facility] 00:00:00 (combo) [code = CT Medical C enter Colonography (combo)] Future Scheduled [address] [facility] 00:00:00 [facility] colon (procedure) [code = 814583098] Future Scheduled [address] [facility] 00:00:00 [facility] colon (procedure) [code = 340987193] Future Scheduled [address] [facility] 00:00:00 [facility] colon (procedure) [code = 333375372] Future Scheduled [address] [facility] 00:00:00 malignant [facility] colon (procedure) [code = 201293711] Future Scheduled 1963 S[facility]oidoscopy [facility] [address] [facility] 00:00:00 malignant neoplasm [facility] breast (procedure) [code = 437436407] Future Scheduled [address] [facility] 00:00:00 (combo) [code = CT Medical C enter Colonography (combo)] Future Scheduled [address] [facility] 00:00:00 malignant [facility] colon (procedure) [code = 054367172] Future Scheduled [address] [facility] 00:00:00 [facility] colon (procedure) [code = 162671874] Future Scheduled [address] [facility] 00:00:00 malignant ne[facility] colon (procedure) [code = 362672050] Future Scheduled [address] [facility] 00:00:00 malignant ne[facility] colon (procedure) [code = 580530063] Future Scheduled 1965 Sigmoidoscopy [facility] [address] [facility] 00:00:00 malignant [facility] breast (procedure) [code = 931270320] Future Scheduled [address] [facility] 00:00:00 (combo) [code = CT Medical C enter Colonography (combo)] Future Scheduled [address] [facility] 00:00:00 malignant [facility] colon (procedure) [code = 390070983] Future Scheduled [address] [facility] 00:00:00 malignant [facility] colon (procedure) [code = 181638103] Future Scheduled [facility] [place] [facility] May to October (>/= 19 yrs) [code = IMM Influenza Seasonal May to October (>/= 19 yrs)] Future Scheduled [facility]MM Influ[facility]al [facility] [place] [facility] May to October (>/= 19 yrs) [code = IMM Influenza Seasonal May to October (>/= 19 yrs)] Future Scheduled IMM Influenza Seasonal [facility] [place] [facility] May to October (>/= 19 yrs) [code = IMM Influenza Seasonal May to October (>/= 19 yrs)] [facility] malignant neoplasm of colon (procedure) [code = 815405568] Future Scheduled Colorectal Cancer [facility] Annual (FIT/FOBT) Age 50 to 75 [code = Colorectal Cancer Scrn Annual (FIT/FOBT) Age 50 to 75] Future Scheduled Breast Cancer [facility]rn [facility] [place] [facility] (Yearly) [code = Breast Cancer Scrn (Yearly)] Future [facility]uled [facility] malignant neoplasm of cervix (procedure) [code = 447124873] Future [facility]uled [facility] malignant neoplasm of cervix (procedure) [code = 232090786] Future Scheduled Cervical Cancer Scrn [facility] [place] [facility] (3 Yrs) [code = Cervical Cancer Scrn (3 Yrs)] Future Scheduled COVID-19 Vaccine (1) [facility] [place] [facility] [code = COVID-19 Vaccine (1)] Encounters Start End Encounter Admission Attending Care Care Encounter Source Date/Time Date/Time Type Type Clinicians Facility Department ID 2023-12-07 2023-12-07 Outpatient R SAURABH CARVAJAL [facility] B [id number] [facility] 09:30:00 09:30:00 SAURABH CARVAJAL [facility] 2023-05-11 2023-05-11 Outpatient VINEET LIM [facility] [id number] [facility] 00:00:00 00:00:00 [place] 2023-04-17 2023-04-17 [facility] [id number] [facility] 00:00:00 00:00:00 [place] 2023-03-14 2023-03-14 Outpatient VINEET LIM [facility] SLE [id number] SLEH 11:59:11 11:59:11 [place] 2023-01-16 2023-01-16 Travel 1.2.840.1 1.2.259.219 [id number] Methodi 00:00:00 00:00:[address] 3.430.2.7 0.2.7.3.698 Ho spita .3.166112 084.8 l .8 2023-01-16 2023-01-16 Transcribe Boris, 1.2.840.1 [id number] Methodi 00:00:00 00:00:00 Orders [address]a [address]255.1.[address] 3.430.2.7 Hospit a .3.437535 l .8 2023-01-16 2023-01-16 Travel 1.2.840.1 1.2.652.620 [id number] Methodi 00:00:00 00:00:[address] 3.430.2.7 0.2.7.3.698 Ho spita .3.882106 084.8 l .8 2023-01-16 2023-01-16 Transcribe Boris, 1.2.840.1 [id number] Methodi 00:00:00 00:00:00 Orders Shawna 61262.1.[address] 3.430.2.7 Hospit a .3.337044 l .8 2023-01-10 2023-01-10 Outpatient VINEET LIM [facility] [id number] SLE 13:49:37 13:49:37 [place] 2023-01-03 2023-01-03 Outpatient KEVIN KIRBY SLE [id number] SLE 00:00:00 00:00:00 [place] 2022-12-19 2022-12-19 Outpatient VINEET LIM [facility] [id number] SLE 00:00:00 00:00:00 [place] 2022-12-16 2022-12-16 Concepcion Matta [facility] [id number] [facility] [place] 00:00:00 00:00:00 Only [facility] 2022-12-14 2022-12-14 Telephone Wei [facility] 1.2.840.11 [id number] [facility] 00:00:00 00:00:00 Saurabh ORANTES 350.1.13.10 it y [place] [id number] [address] 2022-12-06 2022-12-06 Outpatient R SAURABH CARVAJAL [facility] B [id number] Univers 13:00:00 13:52:57 SAURABH CARVAJAL [facility] 2022-12-06 2022-12-06 Office Wei [facility] 1.2.840.114 [id number] Univers 13:00:00 13:52:57 Visit Saurabh ORANTES 350.1.13.10 it y [place] [id number] [address] 2022-12-06 2022-12-06 Orders Doctor WOLF 1.2.840.114 [id number] [facility] 00:00:00 00:00:00 Only Unassigned, JUANCARLOS 350.1.13.10 ity of [place] [facility] 4.2.7.2.686 [place] [id number] [place] [address] [place] 2022-11-30 2022-11-30 Outpatient R SAURABH CARVAJAL [facility] B [id number] Univers 10:30:00 10:30:00 SAURABH CARVAJAL [facility] 2022-11-30 2022-11-30 Outpatient R ROHANSAURABH ROSALES [facility] B [id number] Univers 10:30:00 10:30:00 WEI SAURABH morris [facility] 2022-10-04 2022-10-04 Telephone Ethan [facility] [id number] [facility] 2022-09-13 Office VINEET Lim [facility] [id number] [facility] 13:30:00 13:45:00 Visit [facility] 2022-09-13 2022-09-13 Outpatient VINEET LIM SLE SLE [id number] SLEH 11:41:47 11:41:47 JAE 2022-09-02 2022-09-02 Documentgill Lin [facility] [id number] 00:00:00 00:00:00 ion Qiana Edwards [facility] 2022-07-18 2022-07-18 Outpatient EL SEALS, SLEH SLE [id number] SLEH 14:13:32 23:59:00 [facility] 2022-07-18 2022-07-18 [facility] Seals, [facility] [id number] 14:00:00 23:59:00 Encounter [facility] 2022-07-18 2022-07-18 Outpatient EL SEALS, SLEH SLE [id number] SLEH 14:13:03 13:59:00 [facility] 2022-07-18 2022-07-18 [facility], [facility] [id number] 12:30:00 13:59:00 Encounter [facility] 2022-07-18 2022-07-18 [facility], [facility] [id number] 10:02:46 12:29:00 Encounter [facility] 2022-07-18 2022-07-18 Outpatient EL SEALS, SLEH SLEH [id number] SLEH 10:02:45 12:29:00 JOHNNY 2022-07-06 2022-07-06 Documentat Paxton [facility] [id number] 00:00:00 00:00:00 cedric Blackburn [facility] 2022-06-24 2022-06-24 Documentat Kit [facility] [id number] 00:00:00 00:00:00 cedric Johnny [facility] 2022-06-23 2022-06-23 Documentat Riley [facility] [id number] 00:00:00 00:00:00 cedric Edwards [facility] 2022-06-21 2022-06-21 Office VINEET Lim, [facility] [id number] 15:15:00 15:45:00 Visit [facility] 2022-06-21 2022-06-21 Outpatient VINEET LIM [facility] SLE [id number] SLE 14:20:07 14:20:07 [place] 2022-06-21 2022-06-21 Orders [facility] [id number] 00:00:00 00:00:00 [facility] 2022-06-20 2022-06-20 Office Deep [facility] [id number] 14:45:00 15:15:00 Visit [facility] 2022-06-20 2022-06-20 Outpatient VINEET RYLANTERESAFrancine [facility] SLE [id number] SLE 00:00:00 00:00:00 [place] 2022-06-16 2022-06-16 Outpatient R SAURABH CARVAJAL [facility] B [id number] Univers 00:00:00 00:00:00 SAURABH CARVAJAL [facility] 2022-06-06 2022-06-06 Outpatient R SAURABH CARVAJAL [facility] B [id number] [facility] 00:00:00 00:00:00 SAURABH CARVAJAL dori [facility] 2022-05-20 2022-05-20 Orders Riley [facility] [id number] 00:00:00 00:00:00 Only Qiana Edwards [facility] 2022-05-20 2022-05-20 Documentat Riley [facility] [id number] 00:00:00 00:00:00 ion Qiana Edwards [facility] 2022-05-14 2022-05-16 Inpatient ER KEVIN MCDONNELL Emergency [id number] [facility] 16:03:00 19:02:00 LEANNE 2022-05-14 2022-05-16 Hospital ER Harley MontesinosJohn [facility] [id number] 16:03:00 19:02:00 Encounter Leanne Mcdonnell [facility] 2022-05-15 2022-05-15 Travel [facility] [id number] [facility] 00:00:00 00:00:00 [facility] 2022-05-14 2022-05-14 Orders [facility] [id number] 00:00:00 00:00:00 Only [facility] 2021-12-08 2021-12-08 Case Wei [facility] 1.2.840.114 [id number] [facility] 00:00:00 00:00:00 Management Saurabh ORANTES 350.1.13.10 it[place] [id number] [place] [address] [place] 2021-12-07 2021-12-07 Hogshead Dumper 2, Adc Lab [facility] 1.2.840.114 [id number] [facility] 11:15:00 11:30:00 Visit Eddie Austin 350.1.13.10 [place] [id number] [address] 2021-12-07 2021-12-07 Outpatient R EDDIE [facility] [id number] [facility] 11:15:00 11:15:00 ity of [facility] 2021-11-30 2021-11-30 Office Saurabh Carvajal [facility] 1.2. 840.114 [id number] Univers 09:00:00 10:42:48 Visit Eddie Austin 350.1.13.10 it[place] [id number] [facility] [address] 2021-11-30 2021-11-30 Outpatient R EDDIE [facility] [id number] Univers 09:00:00 10:42:48 ity [facility] 2021-11-30 2021-11-30 Outpatient R EDDIE [facility] [id number] Univers 09:00:00 09:00:00 ity [facility] 2021-11-24 2021-11-24 Pre Visit Kiley TERESA 1.2.007.206 [id number] Univers 00:00:00 00:00:00 Outreach Maya CORADO 350.1.13.10 i [place] [id number] [place] [address] [place] 2021-08-05 2021-08-05 Outpatient R EDDIE [facility] [id number] Univers 15:30:00 15:30:00 ity [facility] 2021-08-02 2021-08-02 Pre Visit KileyFANTASMAFrancine 1.2.827.322 [id number] Univers 00:00:00 00:00:00 Outreach Maya CORADO 350.1.13.10 [place] [id number] [facility] 086 [place] 2021-04-22 2021-04-22 Letter LUCIANO Patel 1.2.840.114 [id number] Univers 00:00:00 00:00:00 (Out) Fannie BAUER 350.1.13.10 i ty of HOSPITAL 4.2.7.2.686 [place] as [id number] [facility] 019 [place] 2021-04-21 2021-04-21 Laboratory Only, Ang Db Test [facility] 1.2.8 40.114 [id number] Univers 16:03:49 16:18:49 [facility] 350.1.13.10 ity of [place] 4.2.7.2.686 [place] Delmar?Blea [phone] Mi justus cristiane [address] [place] [address] Medical Office Building 2021-04-21 2021-04-21 Outpatient Brandon [facility] [id number] Univers 15:45:00 15:45:00 VIELKA ity of [facility] 2021-04-21 2021-04-21 Letter Doctor LUCIANO 1.2.840.114 [id number] Univers 00:00:00 00:00:00 (Out) Unassigned, JUANCARLOS 350.1.13.10 ity of [place] [facility] 4.2.7.2.686 [place] [id number] [facility] 044 [place] 2021-04-21 2021-04-21 Letter Doctor LUCIANO 1.2.840.114 [id number] Univers 00:00:00 00:00:00 (Out) Unassigned, JUANCARLOS 350.1.13.10 ity of [place] [facility]OSPITAL 4.2.7.2.686 [place] [id number] [facility] 044 [place] 2021-04-21 2021-04-21 Orders Doctor LUCIANO 1.2.840.114 [id number] Univers 00:00:00 00:00:00 Only Unassigned, JUANCARLOS 350.1.13.10 ity of [place] [facility]OSP[facility] 4.2.7.2.686 [place] [id number] [facility] 009 [place] 2021 2021-02-27 [facility] [id number] [facility] 15:47:00 11:36:00 Shadi 01 [facility] [place] 2021-02-25 2021-02-25 Outpatient BETH Antunez LABO [id number] [facility] 18:45:00 18:45:00 Jaiden 73 [facility] 2020-12-28 2020-12-28 Outpatient MHIE MHIE [id number] Memoria 15:45:00 15:45:00 00 jodie [place] 2020-12-28 2020-12-28 Outpatient MHIE MHIE [id number] Memoria 15:45:00 15:45:00 00 jodie Agrawal 2020-07-02 2020-07-02 [facility] 1.2.251.271 [id number] 14:38:00 16:16:00 Elier Chris 350.1.13.10 [place] 4.2.7.2.686 [place] [id number] 084 2020-07-02 2020-07-02 Emergency X [facility] ERT [id number] Univers 14:28:00 14:28:00 [facility] 2020-04-29 2020-04-29 Emergency [facility] 1.2.138.611 [id number] 12:18:00 15:08:00 Eddie Chris 350.1.13.10 [place] 4.2.7.2.686 [place] [id number] 084 2020-04-29 2020-04-29 Emergency X [facility] ERT [id number] Univers 12:07:00 12:07:00 EDDIE [facility] 2020-03-17 2020-03-17 Emergency [facility] 1.2.554.263 [id number] 11:37:56 13:51:00 Elier Chris 350.1.13.10 [place] 4.2.7.2.686 [place] [id number] 2020-03-17 2020-03-17 Emergency X [facility] ERT [id number] Univers 11:26:00 11:26:00 [facility] 2020-03-17 2020-03-17 Orders Doctor WOLF 1.2.840.114 [id number] 00:00:00 00:00:00 Only Unassigned, JUANCARLOS 350.1.13.10 [place] [facility] 4.2.7.2.686 [id number] 2019-05-29 2019-05-29 Emergency X [facility] [id number] Univers 06:47:32 09:46:00 MATEUS [facility] 2018-12-10 2018-12-10 Office nullFlavo Family [id number] Memoria 21:03:58 22:56:31 Visit brandon Andrews Same Day 2018-12-10 2018-12-10 Emergency nullFlavo Emergency [id number] Memoria 16:20:39 17:56:00 r Center l (6520) [facility] 2018-12-10 2018-12-10 Outpatient [facility] [id number] [place] 16:03:58 16:03:58 Health 2018-12-10 2018-12-10 Emergency [facility] [id number] [place] 11:20:39 11:20:39 Health 2017-09-01 2017-09-01 Emergency [facility] [id number] [place] 10:29:00 10:29:00 [facility] 2015-02-04 2015-02-05 Outpt Diag nullFlavo [facility] [id number] Memoria 13:00:00 04:59:00 Services r Outpatient 00 l Imaging Nghia Morin 2015-02-04 2015-02-05 Outpt Diag nullFlavo [facility] [id number] Memoria 13:00:00 04:59:00 Services r Outpatient 00 l Imaging Nghia Morin 2015-02-04 2015-02-04 Outpatient Ashish 2.16.840. 2.16.840.1. [id number] 08:00:00 23:59:00 Julian Zheng 1.773477. 727218.3.61 [id number] 3.615.0.1 5.0.431 37 1150-05-11 2015-01-06 Outpatient [facility] [id number] Memoria 15:04:00 04:59:00 r [place] 31 l [facility] 2015-01-05 2015-01-06 Outpatient [facility] [id number] Memoria 15:04:00 04:59:00 r [place] 31 l [facility] 2015-01-05 2015-01-05 Outpatient Silvano-Fu 2.16.840. 2.16.840. 1. [id number] 10:04:00 23:59:00 jono, 1.126453. 879349.3.61 31 Julita Sales 3.615.0.1 5.0.398 71 6122-09-23 2014-05-20 Bedded [facility] [id number] Memoria 11:14:00 19:30:00 Outpatient r [place] 00 l [facility] 2014-05-20 2014-05-20 Bedded [facility]Flavo [facility] [id number] Memoria 11:14:00 19:30:00 Outpatient r [place] 00 l [facility] 2014-05-20 2014-05-20 Outpatient Francis, 2.16.840. 2.16.840.1. [id number] 06:14:00 14:30:00 Larry A 1.454491. [id number] [id number] 3.615.0.1 5.0.070 10 4381-05-05 2014-01-03 Inpatient [facility] [id number] Memoria 07:50:00 03:00:[address] 2013-12-30 2014-01-03 Inpatient [facility] [id number] Memoria 07:50:00 03:00:[address] 2013-12-30 2014-01-02 Outpatient Terminella, 2.16.840. 2.16.840. 1. [id number] 02:50:00 22:00:00 Rivera 1.857332. [id number] 3.615.0.1 5.0.101 01 Results Test Description [...] s not applicable for dialysis estefanía santos [employer] ID - MMLIPID [id number] 13:07:14 Test Item Value Reference Range Interpretation [...] Borderline 130-159 High 160-189 Very High >=190 [employer] Operator ID - MMCBC W/PLT COUNT & AUTO [id number] 12:48:07 Test Item Value Reference Range Interpretation [...] (BEAKER) (test code = 2801) BASIC METABOLIC [id number] 14:39:36 Test Item Value Reference Range Interpretation [...] De scription 1092) sq m Result G1 Norm al or high >=90 G2 Mildly decreased 60-89 G3a Mildl y to moderately 45-5 9 G3b Moderately to s everely 30-44 G4 Severl y decreased 15-29 G5 Kidne y failure <15Reported eGF R is based on the CKD-EPI 2020 equation that d oes not use a race coefficientEsti mated GFR is not as accur ate as Creatinine Katherine antionette in predicting glom erular filtration rate . Estimated GFR is not appl icable for dialysis patien ts [employer] Operator ID - FSECBC W/PLT COUNT & AUTO [id number] 14:24:12 Test Item Value Reference Range Interpretation [...] (BEAKER) (test code = 2801) COMPREHENSIVE METABOLIC [id number] 12:53:08 Test Item Value Reference Range Interpretation [...] not appl icable for dialysis patien ts [employer] Operator ID - MARCOCBC W/PLT COUNT & AUTO [id number] 12:38:19 Test Item Value Reference Range Interpretation [...] (test code = 2801) CT, HEART CORONARY YSEY, WO [id number] 10:02:00[facility] ppo-oon for dr limUnlisted Reason for Exam - Click Yes and Enter Reason Below->No [facility] 1965 Sex: FAddendum BeginsREPORT STATUS:A I concur with the nonvascular findings. Signed: Tim Seay MDReport Verified Date/Time: 07/29/2022 10:02:26 Reading Location: [facility] Radiology ReadingRoomAddendum EndsFINAL REPORT CT scan for Coronary Calcium scoring, 18-Jul-22 INDICATION: This is a 57 -year old female with increased cardiac risk presents for calcium scoring TECHNIQUE: Spiral acquisition without contrast administration using a Siemens CT scan. Calcium score is analysed using the JEDI MINDa software. This exam was performed according to [...] performed. Coronary calcification was analyzed using the JEDI MINDa system software. These are the results of [...] An addendum will be dictated by the Talent Acquisition Specialist Radiologist regarding the nonvascular findings. THE REPORT WILL ONLY BE CONSIDERED COMPLETE AFTER THE ADDENDUM HAS BEEN DICTATED. Signed: Jean-Pierre Yarbrough [facility] Verified Date/Nuno e: 07/23/2022 08:08:03 2D Echo W/Doppler(CW/PW/Color)2022-07-18 18:01:25Ejection FractionSLEH ECHO [facility] W/Doppler(CW/PW/Color)2022-07-18 18:01:25Ejection FractionSLEH [facility] W/Doppler(CW/PW/Color) 2022-07-18 18:01:25Ejection FractionSLEH [facility]Doppler(CW/PW/Color)2022-07-18 18:01:25Ejection FractionSLEH [facility]Doppler(CW/PW/Color)2022-07-18 18:01:25Ejection FractionSLEH [facility]Do[facility](CW/PW/Color) 2022-07-18 18:01:25Ejection FractionSLEH ECHO HEARTLAB [facility] [facility] DistrictCOMPREHENSIVE METABOLIC [id number] 15:38:11 Test Item Value Reference Range Interpretation [...] not appl icable for dialysis patien ts [employer] ID - BSCBC W/PLT COUNT & AUTO [id number] 15:15:49 Test Item Value Reference Range Interpretation [...] 417) IMMATURE GRANULOCYTES-RELATIVE 0.20 % 0.00-1.00 PERCENT (SHASHANK) (test code = 2801) MYOCARD IMAGING, MULTI, PHARM, [id number] 16:45:00Unlisted Reason for Exam - Click Yes and Enter Reason Below->No [facility] : 1965 Sex: FFINAL REPORT PROCEDURE: Rest/Stress MYOCARDIAL PERFUSION SPECT with regadenoson\\XA9\\ CPT CODE: 22509 INDICATION: Chest pain R07.9 HISTORY: Cardiac risk [...] 22.5-36.0 H (BEAKER) (test code = 760) [id number] 04:51:58 Test Item Value Reference Range Interpretation Comments MAGNESIUM (BEAKER) (test code = 1.8 mg/dL 1.6-2.6 627) [employer] ID - PIAYA LBASIC METABOLIC [id number] 04:51:57 Test Item Value Reference Range Interpretation [...] 30-44 G4 Severl y decreased 15-29 G5 Kidne y failure <15Reported eGF R is based on the CKD-EPI 2020 equation that d oes not use a race coefficientEsti mated GFR is not as accur ate as Creatinine Katherine antionette in predicting glom erular filtration rate . Estimated GFR is not appl icable for dialysis patien ts [employer] Operator ID - GWEN [id number] 04:32:03 Test Item Value Reference Range Interpretation [...] WBC 0-0 (BEAKER) (test code = 413) [id number] 16:30:12 Test Item Value Reference Range Interpretation Comments PARTIAL THROMBOPLASTIN TIME 37.5 seconds 22.5-36.0 H (BEAKER) (test code = 760) [id number] 06:58:36 Test Item Value Reference Range Interpretation [...] (test code = 413) HIGH SENSITIVITY TROPONIN [id number] 02:22:02 Test Item Value Reference Range Interpretation Comments HIGH SENSITIVITY 182 pg/ml See_Comment H [Automated message] TROPONIN I (test code The sy stem which = 7691817) generated this result transmitted ref erence range: <=17. Th e reference range was not used to int erpret this result as normal/abnormal . [employer] ID - PIAYA LThe RADIOLOGY ASSISTANT STAT High Sensitivity Troponin-I results should be used in conjunction with other diagnostic information such as ECG, clinical observations and information, and patient symptoms to aid in the diagnosis of [place].SARS-CoV2/RT-PCR (Asymptomatic ONLY)2022-05-15 01:13:52 Test Item Value Reference Interpretation Comments Range SARS-COV2/RT-PCR Negative Negative The SARS-Co V-2 (test code = target nucleic 46692-2) acids are not detected in thi s [...] revoked sooner. Fact Sheet for Healthcare Providers: https://www.[employer]/Documents/Xp ert%20Xpress%20SAR S%20CoV-2/Fact%20S heets/302-3802%20S ARS-COV-2%20HEALTH CARE%20PROVIDERS%2 0FACT%20SHEET.pdf Fact Sheet for Healthcare Patients: https://www.[employer]/Documents/Xp ert%20Xpress%20SAR S%20CoV-2/Fact%20S heets/302-3801%20S ARS-COV-2%20PATIEN T%20FACT%20SHEET.p df Lab Interpretation Normal (test code = 80138-7) [facility]-15 01:13:52 Test Item Value Reference Interpretation Comments Range SARS-COV2/RT-PCR Negative Negative The SARS-Co V-2 (test code = target nucleic 07971-5) acids are not detected in thi s [...] revoked sooner. Fact Sheet for Healthcare Providers: https://www.[employer]/Documents/Xp ert%20Xpress%20SAR S%20CoV-2/Fact%20S heets/302-3802%20S ARS-COV-2%20HEALTH CARE%20PROVIDERS%2 0FACT%20SHEET.pdf Fact Sheet for Healthcare Patients: https://www.[employer]/Documents/Xp ert%20Xpress%20SAR S%20CoV-2/Fact%20S heets/302-3801%20S ARS-COV-2%20PATIEN T%20FACT%20SHEET.p df Lab Interpretation Normal (test code = 94754-6) [facility]2022-05-15 01:13:52 Test Item Value Reference Interpretation Comments Range SARS-COV2/RT-PCR Negative Negative The SARS-Co V-2 (test code = target nucleic 16919-6) acids are not detected in thi s [...] revoked sooner. Fact Sheet for Healthcare Providers: https://www.[employer]/Documents/Xp ert%20Xpress%20SAR S%20CoV-2/Fact%20S heets/302-3802%20S ARS-COV-2%20HEALTH CARE%20PROVIDERS%2 0FACT%20SHEET.pdf Fact Sheet for Healthcare Patients: https://www.[employer]/Documents/Xp ert%20Xpress%20SAR S%20CoV-2/Fact%20S heets/302-3801%20S ARS-COV-2%20PATIEN T%20FACT%20SHEET.p df Lab Interpretation Normal (test code = 11925-6) [facility]2022-05-15 01:13:52 Test Item Value Reference Interpretation Comments Range SARS-COV2/RT-PCR Negative Negative The SARS-Co V-2 (test code = target nucleic 01634-6) acids are not detected in thi s [...] revoked sooner. Fact Sheet for Healthcare Providers: https://www.[employer]/Documents/Xp ert%20Xpress%20SAR S%20CoV-2/Fact%20S heets/302-3802%20S ARS-COV-2%20HEALTH CARE%20PROVIDERS%2 0FACT%20SHEET.pdf Fact Sheet for Healthcare Patients: https://www.[employer]/Documents/Xp ert%20Xpress%20SAR S%20CoV-2/Fact%20S heets/302-3801%20S ARS-COV-2%20PATIEN T%20FACT%20SHEET.p df Lab Interpretation Normal (test code = 40035-1) [facility]2022-05-15 01:13:52 Test Item Value Reference Interpretation Comments Range SARS-COV2/RT-PCR Negative Negative The SARS-Co V-2 (test code = target nucleic 83439-2) acids are not detected in thi s [...] revoked sooner. Fact Sheet for Healthcare Providers: https://www.[employer]/Documents/Xp ert%20Xpress%20SAR S%20CoV-2/Fact%20S heets/302-3802%20S ARS-COV-2%20HEALTH CARE%20PROVIDERS%2 0FACT%20SHEET.pdf Fact Sheet for Healthcare Patients: https://www.[employer]/Documents/Xp ert%20Xpress%20SAR S%20CoV-2/Fact%20S heets/302-3801%20S ARS-COV-2%20PATIEN T%20FACT%20SHEET.p df Lab Interpretation Normal (test code = 54193-1) [facility]2022-05-15 01:13:52 Test Item Value Reference Interpretation Comments Range SARS-COV2/RT-PCR Negative Negative The SARS-Co V-2 (test code = target nucleic 69818-6) acids are not detected in thi s [...] revoked sooner. Fact Sheet for Healthcare Providers: https://www.[employer]/Documents/Xp ert%20Xpress%20SAR S%20CoV-2/Fact%20S heets/302-3802%20S ARS-COV-2%20HEALTH CARE%20PROVIDERS%2 0FACT%20SHEET.pdf Fact Sheet for Healthcare Patients: https://www[employer]/Documents/Xp ert%20Xpress%20SAR S%20CoV-2/Fact%20S heets/302-3801%20S ARS-COV-2%20PATIEN T%20FACT%20SHEET.p df Lab Interpretation Normal (test code = 18275-3) [facility])2022-05-15 01:13:52 Test Item Value Reference Range Interpretation Comments SARS-COV2/RT-PCR Negative Negative The SARS-Co V-2 target (test code = nucleic acids a re not 8365011) detected in thi s specimen. Negative result [...] revoked sooner. Fact Sheet for Healthcare Providers: https://www.[employer]/Documents/Xpert%20Xpress%20SARS%20CoV-2/Fact%20Sheets/3023802%10GGBX-GZH-5%20 HEALTHCARE%20PROVIDERS%20FACT%20SHEET.pdf Fact Sheet for Healthcare Patients: https://www.[employer]/Documents/Xpert%20Xp ress%20SARS%20CoV-2/Fact%20Sheets/3023801%02RQUX-PRD-1%20PATIENT%20FACT%20SHEET .pdfHIGH SENSITIVITY TROPONIN [id number] 23:36:40 Test Item Value Reference Range Interpretation Comments HIGH SENSITIVITY 148 pg/ml See_Comment H [Automated message] TROPONIN I (test code The sy stem which = 4805916) generated this result transmitted ref erence range: <=17. Th e reference range was not used to int erpret this result as normal/abnormal . [employer] Operator ID - PIAYA LThe RADIOLOGY ASSISTANT STAT High Sensitivity Troponin-I results should be used in conjunction with other diagnostic information such as ECG, clinical observations and information, and patient symptoms to aid in the diagnosis of [place].[id number] 23:35:01 Test Item Value Reference Range Interpretation Comments PARTIAL THROMBOPLASTIN TIME 36.2 seconds 22.5-36.0 H (BEAKER) (test code = 760) [id number] 23:33:40 Test Item Value Reference Range Interpretation Comments PARTIAL THROMBOPLASTIN TIME 35.9 seconds 22.5-36.0 (BEAKER) (test code = 760) LIPID [id number] 23:31:17 Test Item Value Reference Range Interpretation Comments TRIGLYCERIDES (BEAKER) 300 mg/dL Speci men slightly (test code = 540) hemolyzed CHOLESTEROL (BEAKER) 157 mg/dL Specime n slightly (test code = 631) hemolyzed HDL CHOLESTEROL (BEAKER) 30 mg/dL (test code = 976) LDL CHOLESTEROL 67 mg/dL CALCULATED (AKER) (test code = 633) Triglyceride Reference Range: Low Risk <150 Borderline 150-199 High Risk 200- 499 Very High Risk >=500Cholesterol Reference Range: Low Risk <200 Borderline 200-239 High Risk >240HDL Cholesterol Reference Range: Low Risk >=60 High Risk <40LDL Cholesterol Reference Range: Optimal <100 Near Optimal 100-129 Borderline 130-159 High 160-189 Very High >=190 [employer] ID - DANUTA MPLATELET [id number] 23:02:35 Test Item Value Reference Range Interpretation Comments PLATELET COUNT (SHASHANK) (test 166 K/CU MM 150-450 code = 756) [employer] Operator ID - 6000HIGH SENSITIVITY TROPONIN [id number] 19:17:02 Test Item Value Reference Range Interpretation Comments HIGH SENSITIVITY 57 pg/ml See_Comment H [Automated message] TROPONIN I (test code = The system which 8161589) generated this result transmitted ref erence range: <=17. Th e reference range was not used to int erpret this result as normal/abnormal . [employer] Operator ID - DANUTA [employer] RADIOLOGY ASSISTANT STAT High Sensitivity Troponin-I results should be used in conjunction with other diagnostic information such as ECG, clinical observations and information, and patient symptoms to aid in the diagnosis of [place].HIGH SENSITIVITY TROPONIN [id number] 17:36:27 Test Item Value Reference Range Interpretation Comments HIGH SENSITIVITY 22 pg/ml See_Comment H [Automated message] TROPONIN I (test code = The system which 6999823) generated this result transmitted ref erence range: <=17. Th e reference range was not used to int erpret this result as normal/abnormal . [employer] Operator ID - DANUTA [employer] RADIOLOGY ASSISTANT STAT High Sensitivity Troponin-I results should be used in conjunction with other diagnostic information such as ECG, clinical observations and information, and patient symptoms to aid in the diagnosis of [place].COMPREHENSIVE METABOLIC [id number] 17:29:31 Test Item Value Reference Range Interpretation Comments TOTAL PROTEIN 7.4 gm/dL 6.0-8.3 (AKER) (test code = 770) ALBUMIN (BEAKER) 4.3 [...] not appl icable for dialysis patien ts [employer] Operator ID - DANUTA MCBC W/PLT COUNT & AUTO [id number] 17:18:57 Test Item Value Reference Range Interpretation [...] (test code = 2801) RAD, CHEST, 2 [id number] 16:44:00Reason for exam:->r/o ACS [facility] : 1965 Sex: FFINAL REPORT INDICATION: r/o ACS COMPARISON: None TECHNIQUE: AP and lateral view ofthe chest. FINDINGS: Lungs and pleura: Clear lungs. No effusion.Heart and mediastinum: Normal heart size. Unremarkable mediastinal contours.Osseous structures: No acute abnormality.Other: None. IMPRESSION: No acute intrathoracic abnormality. Signed: Alyssia [facility]ps[facility] Verified Date/Time: 05/14/2022 16:44:29 COMPREHENSIVE METABOLIC [id number] 05:15:00 Test Item Value Reference Range Interpretation [...] TOTAL (test code = ALKP) GLUCOSE BEDSIDE [id number] 19:48:00 Test Item Value Reference Range Interpretation Comments GLUCOSE BEDSIDE TESTING (test code = 98 mg/dL 70-110 N GLUBED) - XR SMALL [id number] 19:38:00 [facility] : 1965 Sex: F Name: RO MAYNARD [facility] : 1965 Age/S: 56 / F [address] [facility] [address] Unit #: [id number] Loc: [place] [address] Phys: Dawson Ramírez MD Acct: [id number] Dis Date: Status: ADM IN PHONE #: [phone] Exam Date: 2021 1900 FAX #: Reason: evaluate for Crohn's EXAMS: CPT: [id number] XR SM ALL BOWEL 51605 Fluoro Time: 0 DAP (Gy m2): Air Kerma (mGy): Location of dictation: H 14 Small bowel follow-through: HISTORY: Right upper quadrant pain, evaluate for Crohn's disease. COMMENT: The proposal rep radiograph shows normal bowel gas pattern. No [...] disease. at 1938 Reported and signed by: Guear Moore M.D. CC: Jaiden Antunez MD; Shawna Escalante MD; Dawson Ramírez MD PAGE 1 Signed Report Name: RO MAYNARD : 1965 Age/S: 56 / F [address] Unit #: [id number] Loc: [place] [address] Phys: Dawson Ramírez MD Acct: [id number] Dis Date: Status: ADM IN PHONE #: [phone] Exam Date: 2021 1900 FAX #: Reason: evaluate for Crohn's EXAMS: CPT: [id number] XR SMALL BOWEL 26085 Fluoro Time: 0 DAP (Gy m2): Air Kerma (mGy): (Continued) Technologist: Zainab Moran RT(R)(CT)(MRI) Trnscb Date/Time: 2021 (1937) [place]PXC Orig Print D/T: S: 2021 (1941) PAGE 2 Signed ReportGLUCOSE BEDSIDE [id number] 17:05:00 Test Item Value Reference Range Interpretation Comments GLUCOSE BEDSIDE TESTING (test code 148 mg/dL 70-110 H = GLUBED) - HEPA IMAG INCL GB W [id number] 16:10:00 [facility] : 1965 Sex: F FAX: Jaiden Huff MD [phone] Camps: PM St: ADM FAX: Shawna Scott MD [phone] FAX: Dawson Hodge MD [phone] Name: RO MAYNARD [facility] : 1965 Age/S: 56/F [address] [address] Unit #: [id number] Loc: [address] [place] [address] Phys: Dawson Ramírez MD Acct: [id number] Dis Date: Status: ADM IN PHONE #: [phone] Exam Date: 2021 1553 FAX #: Reason: RUQ pain EXAMS: CPT: [id number] HEPA IMAG INCL GB W PHA 37249 EXAMINATION: Nuclear medicine hepatobiliary scan with ejection fraction determination INDICATION: RUQ pain COMPARISON: MRCP previous day LOCATION: S17 TECHNIQUE: Dynamic imaging was obtained of the upper abdomen following the administration of 5.2 mCi Tc-99m Choletec IV.Ejection fraction was determined following gallbladder stimulation with fatty meal (8 ounces of Ensur e). FINDINGS: After the administration of tracer, relatively [...] Shawna Escalante MD; Dawson Ramírez MD Technologist: Vielka Perrin [facility] Transcribed Date/Time/By: 2021 (9150) :[place]anaPE1 Orig Print D/T: S: 2021(9151) PAGE 1 Signed ReportGLUCOSE BEDSIDE [id number] 11:56:00 Test Item Value Reference Range Interpretation Comments GLUCOSE BEDSIDE TESTING (test code 131 mg/dL 70-110 H = GLUBED) CBC W/AUTO [id number] 06:20:00 Test Item Value Reference Range Interpretation [...] DIFF REQUIRED NO DIFF/SCN CRITERIA SLIDE R JUNEIEW (test code = MDIFF) CONSISTA NT WITH AUTO DIFFERENTI AL. COMPREHENSIVE METABOLIC [id number] 04:48:00 Test Item Value Reference Range Interpretation [...] 45-117 N TOTAL (test code = ALKP) [id number] 04:48:00 Test Item Value Reference Range Interpretation Comments PHOSPHOROUS (test code = PHOS) 3.8 MG/DL 2.5-4.9 N [id number] 04:48:00 Test Item Value Reference Range Interpretation Comments MAGNESIUM (test code = MAG) 2.1 MG/DL 1.8-2.4 N COMPREHENSIVE METABOLIC [id number] 04:46:00 Test Item Value Reference Range Interpretation [...] TOTAL (test Unit/L 45-117 code = ALKP) [id number] 04:46:00 Test Item Value Reference Range Interpretation Comments PHOSPHOROUS (test code = PHOS) MG/DL 2.5-4.9 [id number] 04:46:00 Test Item Value Reference Range Interpretation Comments MAGNESIUM (test code = MAG) MG/DL 1.8-2.4 [id number] 04:46:00 Test Item Value Reference Range Interpretation [...] may dexter yby method. Completed by Nursing: [id number] 04:46:00 Test Item Value Reference Range Interpretation Comments ALCOHOL (test code = ALC) < 3 MG/DL 0-10 N Completed by Nursing: NOCBC W/AUTO [id number] 04:36:00 Test Item Value Reference Range Interpretation [...] DIFF/SCN CRITERIA MDIFF) DRUGS OF ABUSE SCREEN [id number] 21:43:00 Test Item Value Reference Range Interpretation [...] this result as normal/abnormal . 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 Right upper quadrant pain [...] Renee Mills RT(R)(CT) Transcribed Date/Time/By: 02/25/2021 (1904) :[email or web address] Orig Print D/T: S: 02/25/2021 (1907) PAGE 1 Signed Report COVID 19 INHOUSE [id number] 16:22:00 Test Item Value Reference Range Interpretation Comments COVID 19 INHOUSE AG NEGATIVE Negative Per manu facturer, (test code = negative result s should TUJOK23MEUM) be treated aspr esumptive and, if inconsi [...] symptoms co nsistent with COVID-19. CBC W/AUTO [id number] 15:38:00 Test Item Value Reference Range Interpretation [...] WITH AUTO DIFFERENTIAL.NO PLT CLUMPS OBSERVED RBC [id number] 15:38:00 Test Item Value Reference Range Interpretation Comments PLATELET ESTIMATE (test ADEQUATE THOUSAND ADEQUATE code = PLTEST) PLATELET MORPHOLOGY (test NORMAL code = PLTMORPH) CBC W/AUTO [id number] 15:33:00 Test Item Value Reference Range Interpretation [...] code DIFF/SCN CRITERIA = MDIFF) CBC W/AUTO [id number] 15:33:00 Test Item Value Reference Range Interpretation [...] code DIFF/SCN CRITERIA = MDIFF) BASIC METABOLIC [id number] 14:26:00 Test Item Value Reference Range Interpretation [...] CA) 8.7 MG/DL 8.5-10.1 N HEPATIC FUNCTION [id number] 14:26:00 Test Item Value Reference Range Interpretation [...] 93 Unit/L 45-117 N code = ALKP) [id number] 14:26:00 Test Item Value Reference Range Interpretation Comments LIPASE (test code = LIP) 95 Unit/L 114-286 L UA RFLX MICR CULT IF [id number] 14:10:00 Test Item Value Reference Range Interpretation [...] code = UACULT) Indication for culture: RiskForSepsis-no [facility] srcCBC W/AUTO [id number] 14:04:00 Test Item Value Reference Range Interpretation [...] (test code = DIFF/SCN CRITERIA MDIFF) CHEM [id number] 14:26:00 Test Item Value Reference Range Interpretation Comments BUN (test code = BUN) 8 - [facility]End[facility] [id number] 14:26:00 Test Item Value Reference Range Interpretation Comments Glucose Lvl (test code = Glucose Lvl) 91 70-99 [facility]2014-09-22 14:26:00 Test Item Value Reference Range Interpretation Comments CO2 (test code = CO2) 29 24-32 [facility]2014-09-22 14:26:00 Test Item Value Reference Range Interpretation Comments AGAP (test code = AGAP) 6.7 10.0-20.0 [facility]2014-09-22 14:26:00 Test Item Value Reference Range Interpretation Comments eGFR (test code = eGFR) 86 [facility]2014-09-22 14:26:00 Test Item Value Reference Range Interpretation Comments Creatinine Lvl (test code = Creatinine 0.8 0.5-1.4 Lvl) [facility]2014-09-22 14:26:00 Test Item Value Reference Range Interpretation Comments Chloride Lvl (test code = Chloride Lvl) 104 95-109 [facility]2014-09-22 14:26:00 Test Item Value Reference Range Interpretation Comments Potassium Lvl (test code = Potassium 3.7 3.5-5.1 Lvl) [facility]2014-09-22 14:26:00 Test Item Value Reference Range Interpretation Comments Sodium Lvl (test code = Sodium Lvl) 136 135-145 [facility]2014-09-22 14:26:00 Test Item Value Reference Range Interpretation Comments Calcium Lvl (test code = Calcium Lvl) 9.7 8.5-10.5 [facility]GpxqyidLDKQZBFIJV1327-74-87 14:26:00 Test Item Value Reference Range Interpretation Comments MCV (test code = MCV) 101.6 80.0-98.0 [facility]ervillePlhxxkvWLFLBEEBQN8730-74-07 14:26:00 Test Item Value Reference Range Interpretation Comments MCH (test code = MCH) 35.5 pg 27.0-31.0 [facility]ervilleUkggjusEZUFTAPUDK0749-14-00 14:26:00 Test Item Value Reference Range Interpretation Comments Hgb (test code = Hgb) 13.3 12.0-16.0 [facility]ervilleDaueiawFHPVZZAWOW1866-26-18 14:26:00 Test Item Value Reference Range Interpretation Comments Hct (test code = Hct) 37.9 36.0-48.0 [facility]ervilleDgghwrrLLIMAIWDYJ7597-70-45 14:26:00 Test Item Value Reference Range Interpretation Comments RBC (test code = RBC) 3.73 4.20-5.40 [facility]ervillePqvvyozGMGCFKSDEE2700-08-75 14:26:00 Test Item Value Reference Range Interpretation Comments WBC (test code = WBC) 6.1 3.7-10.4 [facility]ugervilleCjlwklmXIQMYITJSO3804-49-37 14:26:00 Test Item Value Reference Range Interpretation Comments MPV (test code = MPV) 8.0 7.4-10.4 [facility]ervilleDkmhcyzDLPIOFMTGI2877-07-30 14:26:00 Test Item Value Reference Range Interpretation Comments RDW (test code = RDW) 17.2 11.5-14.5 [facility]flugervilleZzmfckcWZYIHAENLL9228-54-83 14:26:00 Test Item Value Reference Range Interpretation Comments Platelet (test code = Platelet) 223 133-450 [facility]ervilleZcspqitAPFYDQZRLF0337-72-94 14:26:00 Test Item Value Reference Range Interpretation Comments MCHC (test code = MCHC) 35.0 32.0-36.0 [facility]ervilleBcclvybQFZOTCZOHZ7052-51-79 14:26:00 Test Item Value Reference Range Interpretation Comments INR (test code = INR) 0.93 0.85-1.17 [facility]flugervilleLijwiqaIURJZYWNBG9778-21-99 14:26:00 Test Item Value Reference Range Interpretation Comments PT (test code = PT) 12.4 s 12.0-14.7 [facility]2014-09-22 14:26:00 Test Item Value Reference Range Interpretation Comments BUN (test code = BUN) 8 7-22 [facility]2014-09-22 14:26:00 Test Item Value Reference Range Interpretation Comments Glucose Lvl (test code = Glucose Lvl) 91 70-99 [facility]2014-09-22 14:26:00 Test Item Value Reference Range Interpretation Comments CO2 (test code = CO2) 29 24-32 [facility]2014-09-22 14:26:00 Test Item Value Reference Range Interpretation Comments AGAP (test code = AGAP) 6.7 10.0-20.0 [place] [id number] 14:26:00 Test Item Value Reference Range Interpretation Comments eGFR (test code = eGFR) 86 [facility]2014-09-22 14:26:00 Test Item Value Reference Range Interpretation Comments Creatinine Lvl (test code = Creatinine 0.8 0.5-1.4 Lvl) [facility]2014-09-22 14:26:00 Test Item Value Reference Range Interpretation Comments Chloride Lvl (test code = Chloride Lvl) 104 95-109 [facility]2014-09-22 14:26:00 Test Item Value Reference Range Interpretation Comments Potassium Lvl (test code = Potassium 3.7 3.5-5.1 Lvl) [facility]2014-09-22 14:26:00 Test Item Value Reference Range Interpretation Comments Sodium Lvl (test code = Sodium Lvl) 136 135-145 [facility]2014-09-22 14:26:00 Test Item Value Reference Range Interpretation Comments Calcium Lvl (test code = Calcium Lvl) 9.7 8.5-10.5 [facility] PflugervilleUbbtejxJBPPNEODLR6595-20-63 14:26:00 Test Item Value Reference Range Interpretation Comments MCV (test code = MCV) 101.6 80.0-98.0 [facility] PflugervilleXofncicNPEASHDKEX5501-61-24 14:26:00 Test Item Value Reference Range Interpretation Comments MCH (test code = MCH) 35.5 pg 27.0-31.0 [facility]ugervilleQjwvcszFVXETGNCKM4425-42-03 14:26:00 Test Item Value Reference Range Interpretation Comments Hgb (test code = Hgb) 13.3 12.0-16.0 [facility]OyyfqljDWEIRWCXMY3335-70-53 14:26:00 Test Item Value Reference Range Interpretation Comments Hct (test code = Hct) 37.9 36.0-48.0 [facility] [place]AmsvnpsUTSOTCRRNW3409-80-86 14:26:00 Test Item Value Reference Range Interpretation Comments RBC (test code = RBC) 3.73 4.20-5.40 [facility] [place]OduibjbNRYYZITAKT8356-02-52 14:26:00 Test Item Value Reference Range Interpretation Comments WBC (test code = WBC) 6.1 3.7-10.4 [facility] [place]FuudlyjRLNEOSGPLL8248-10-63 14:26:00 Test Item Value Reference Range Interpretation Comments MPV (test code = MPV) 8.0 7.4-10.4 [place] 653004-09-22 14:26:00 Test Item Value Reference Range Interpretation Comments RDW (test code = RDW) 17.2 11.5-14.5 [facility] [place]MouuxwrDKFWEXQFHF5515-34-36 14:26:00 Test Item Value Reference Range Interpretation Comments Platelet (test code = Platelet) 223 133-450 [facility] [place]AgqbmpvCLUUMBVQIL0764-82-53 14:26:00 Test Item Value Reference Range Interpretation Comments MCHC (test code = MCHC) 35.0 32.0-36.0 [facility] [place]HmxcysuRRYHIBJOAY1456-51-04 14:26:00 Test Item Value Reference Range Interpretation Comments INR (test code = INR) 0.93 0.85-1.17 [facility] [place]LqlgrteIJQEQREQSA1531-79-08 14:26:00 Test Item Value Reference Range Interpretation Comments PT (test code = PT) 12.4 s 12.0-14.7 [facility]2014-09-22 14:26:00 Test Item Value Reference Range Interpretation Comments BUN (test code = BUN) 8 7-22 [facility]2014-09-22 14:26:00 Test Item Value Reference Range Interpretation Comments Glucose Lvl (test code = Glucose Lvl) 91 70-99 [facility]2014-09-22 14:26:00 Test Item Value Reference Range Interpretation Comments CO2 (test code = CO2) 29 24-32 [facility]2014-09-22 14:26:00 Test Item Value Reference Range Interpretation Comments AGAP (test code = AGAP) 6.7 10.0-20.0 [facility]2014-09-22 14:26:00 Test Item Value Reference Range Interpretation Comments eGFR (test code = eGFR) 86 [facility]2014-09-22 14:26:00 Test Item Value Reference Range Interpretation Comments Creatinine Lvl (test code = Creatinine 0.8 0.5-1.4 Lvl) [facility]2014-09-22 14:26:00 Test Item Value Reference Range Interpretation Comments Chloride Lvl (test code = Chloride Lvl) 104 95-109 [facility]2014-09-22 14:26:00 Test Item Value Reference Range Interpretation Comments Potassium Lvl (test code = Potassium 3.7 3.5-5.1 Lvl) [facility]2014-09-22 14:26:00 Test Item Value Reference Range Interpretation Comments Sodium Lvl (test code = Sodium Lvl) 136 135-145 [facility]2014-09-22 14:26:00 Test Item Value Reference Range Interpretation Comments Calcium Lvl (test code = Calcium Lvl) 9.7 8.5-10.5 [facility] [place]ervilleNmvkoknKLCTMRZUBY8637-40-96 14:26:00 Test Item Value Reference Range Interpretation Comments MCV (test code = MCV) 101.6 80.0-98.0 [facility] [place]ervilleGzefvgvPAWZCPXPVX8017-40-63 14:26:00 Test Item Value Reference Range Interpretation Comments MCH (test code = MCH) 35.5 pg 27.0-31.0 [facility] [place]GzhfkbpPATWSYMCCK2112-27-96 14:26:00 Test Item Value Reference Range Interpretation Comments Hgb (test code = Hgb) 13.3 12.0-16.0 [facility] [place]GmnxhrpBXWUXHAVZI6146-91-58 14:26:00 Test Item Value Reference Range Interpretation Comments Hct (test code = Hct) 37.9 36.0-48.0 [facility] [place]SxqjmtxDKFOQJEUOB0239-04-77 14:26:00 Test Item Value Reference Range Interpretation Comments RBC (test code = RBC) 3.73 4.20-5.40 [facility] [place]ervilleRjkvezaVWMBEDRXIG5172-48-18 14:26:00 Test Item Value Reference Range Interpretation Comments WBC (test code = WBC) 6.1 3.7-10.4 [facility] [place]ervilleLthrhyaRBDMHAUJLR3003-45-71 14:26:00 Test Item Value Reference Range Interpretation Comments MPV (test code = MPV) 8.0 7.4-10.4 [facility] [place]RyqqmrsIPRBMFSTAC8298-47-37 14:26:00 Test Item Value Reference Range Interpretation Comments RDW (test code = RDW) 17.2 11.5-14.5 [facility]JkwoxqsFWHALGPEWH8349-19-82 14:26:00 Test Item Value Reference Range Interpretation Comments Platelet (test code = Platelet) 223 133-450 [facility] [place]ervilleLdfigkyWJIGXSBKZO6258-02-38 14:26:00 Test Item Value Reference Range Interpretation Comments MCHC (test code = MCHC) 35.0 32.0-36.0 [facility] [place]OyrkzgxAOSAMTCMEI4512-90-90 14:26:00 Test Item Value Reference Range Interpretation Comments INR (test code = INR) 0.93 0.85-1.17 [place] 653004-09-22 14:26:00 Test Item Value Reference Range Interpretation Comments PT (test code = PT) 12.4 s 12.0-14.7 [facility]2014-09-22 14:26:00 Test Item Value Reference Range Interpretation Comments BUN (test code = BUN) 8 - [facility]2014-09-22 14:26:00 Test Item Value Reference Range Interpretation Comments Glucose Lvl (test code = Glucose Lvl) 91 70-99 [facility]2014-09-22 14:26:00 Test Item Value Reference Range Interpretation Comments CO2 (test code = CO2) 29 24-32 [facility]2014-09-22 14:26:00 Test Item Value Reference Range Interpretation Comments AGAP (test code = AGAP) 6.7 10.0-20.0 [place] 695474-09-22 14:26:00 Test Item Value Reference Range Interpretation Comments eGFR (test code = eGFR) 86 [facility]2014-09-22 14:26:00 Test Item Value Reference Range Interpretation Comments Creatinine Lvl (test code = Creatinine 0.8 0.5-1.4 Lvl) [facility]2014-09-22 14:26:00 Test Item Value Reference Range Interpretation Comments Chloride Lvl (test code = Chloride Lvl) 104 95-109 [facility]2014-09-22 14:26:00 Test Item Value Reference Range Interpretation Comments Potassium Lvl (test code = Potassium 3.7 3.5-5.1 Lvl) [facility]2014-09-22 14:26:00 Test Item Value Reference Range Interpretation Comments Sodium Lvl (test code = Sodium Lvl) 136 135-145 [facility]2014-09-22 14:26:00 Test Item Value Reference Range Interpretation Comments Calcium Lvl (test code = Calcium Lvl) 9.7 8.5-10.5 [facility] [place]ervilleBsnfimzIDVCKHPFER7282-76-46 14:26:00 Test Item Value Reference Range Interpretation Comments MCV (test code = MCV) 101.6 80.0-98.0 [facility] [place]ervilleWunuuzoRGXDRNVWVI1090-10-74 14:26:00 Test Item Value Reference Range Interpretation Comments MCH (test code = MCH) 35.5 pg 27.0-31.0 [facility] [place]JesyhvkFGFSCLOGDW3173-98-36 14:26:00 Test Item Value Reference Range Interpretation Comments Hgb (test code = Hgb) 13.3 12.0-16.0 [facility] [place]EyhaozbUMWKYJDXWC7268-71-04 14:26:00 Test Item Value Reference Range Interpretation Comments Hct (test code = Hct) 37.9 36.0-48.0 [facility] [place]QefjsnzCAHMNKESTR8256-11-24 14:26:00 Test Item Value Reference Range Interpretation Comments RBC (test code = RBC) 3.73 4.20-5.40 [facility] [place]ervilleElslvunXNBHFMLKDM2230-00-72 14:26:00 Test Item Value Reference Range Interpretation Comments WBC (test code = WBC) 6.1 3.7-10.4 [facility] [place]KnkzrlgZQNUUEVDJH3087-64-14 14:26:00 Test Item Value Reference Range Interpretation Comments MPV (test code = MPV) 8.0 7.4-10.4 [facility] [place]ervilleQaosoksTQWRKGADQL1292-34-52 14:26:00 Test Item Value Reference Range Interpretation Comments RDW (test code = RDW) 17.2 11.5-14.5 [facility] [place]QpmpzeaCJLJVWILIL6236-63-86 14:26:00 Test Item Value Reference Range Interpretation Comments Platelet (test code = Platelet) 223 133-450 [facility] [place]ervilleErlurjiRGXQUSFVMZ8112-38-04 14:26:00 Test Item Value Reference Range Interpretation Comments MCHC (test code = MCHC) 35.0 32.0-36.0 [facility]JlvevfwMLPJVQYLNC6698-99-97 14:26:00 Test Item Value Reference Range Interpretation Comments INR (test code = INR) 0.93 0.85-1.17 [facility] [place]ervilleTflkodcWEQLMTUIWU4537-97-05 14:26:00 Test Item Value Reference Range Interpretation Comments PT (test code = PT) 12.4 s 12.0-14.7 [facility]2014-09-22 14:26:00 Test Item Value Reference Range Interpretation Comments BUN (test code = BUN) 8 7-22 [facility]2014-09-22 14:26:00 Test Item Value Reference Range Interpretation Comments Glucose Lvl (test code = Glucose Lvl) 91 70-99 [facility]2014-09-22 14:26:00 Test Item Value Reference Range Interpretation Comments CO2 (test code = CO2) 29 24-32 [facility]2014-09-22 14:26:00 Test Item Value Reference Range Interpretation Comments AGAP (test code = AGAP) 6.7 10.0-20.0 [facility]2014-09-22 14:26:00 Test Item Value Reference Range Interpretation Comments eGFR (test code = eGFR) 86 [facility]2014-09-22 14:26:00 Test Item Value Reference Range Interpretation Comments Creatinine Lvl (test code = Creatinine 0.8 0.5-1.4 Lvl) [facility]2014-09-22 14:26:00 Test Item Value Reference Range Interpretation Comments Chloride Lvl (test code = Chloride Lvl) 104 95-109 [facility]2014-09-22 14:26:00 Test Item Value Reference Range Interpretation Comments Potassium Lvl (test code = Potassium 3.7 3.5-5.1 Lvl) [facility]2014-09-22 14:26:00 Test Item Value Reference Range Interpretation Comments Sodium Lvl (test code = Sodium Lvl) 136 135-145 [facility]2014-09-22 14:26:00 Test Item Value Reference Range Interpretation Comments Calcium Lvl (test code = Calcium Lvl) 9.7 8.5-10.5 [facility]JnmeqvpRGMDWSLHCT4594-41-36 14:26:00 Test Item Value Reference Range Interpretation Comments MCV (test code = MCV) 101.6 80.0-98.0 [facility]ervilleGcylywkBYYQYWMWOM6356-96-40 14:26:00 Test Item Value Reference Range Interpretation Comments MCH (test code = MCH) 35.5 pg 27.0-31.0 [facility] [place]ervilleKhkszscQBZJXMHKNN5352-73-58 14:26:00 Test Item Value Reference Range Interpretation Comments Hgb (test code = Hgb) 13.3 12.0-16.0 [facility]ervilleDzlnvztPDSTOYFBQC5609-52-04 14:26:00 Test Item Value Reference Range Interpretation Comments Hct (test code = Hct) 37.9 36.0-48.0 [facility]ervilleIotgicsXXRFZDDKTM3589-79-13 14:26:00 Test Item Value Reference Range Interpretation Comments RBC (test code = RBC) 3.73 4.20-5.40 [place] 653004-09-22 14:26:00 Test Item Value Reference Range Interpretation Comments WBC (test code = WBC) 6.1 3.7-10.4 [facility]ervilleHreophpBNONVLBZLX8242-52-66 14:26:00 Test Item Value Reference Range Interpretation Comments MPV (test code = MPV) 8.0 7.4-10.4 [facility] [place]KteupkgLANZGCUBEL5818-30-58 14:26:00 Test Item Value Reference Range Interpretation Comments RDW (test code = RDW) 17.2 11.5-14.5 [facility]ervilleKrqjdbtRRWHMFDLBY9227-13-26 14:26:00 Test Item Value Reference Range Interpretation Comments Platelet (test code = Platelet) 223 133-450 [facility] [place]ervilleHtuixiaGPJBNHKHKB7713-14-52 14:26:00 Test Item Value Reference Range Interpretation Comments MCHC (test code = MCHC) 35.0 32.0-36.0 [facility]ervilleDqtlsawZSXGGWJNBC2811-14-43 14:26:00 Test Item Value Reference Range Interpretation Comments INR (test code = INR) 0.93 0.85-1.17 [facility]ervilleKgyiwsfMZPGJOHBKR6986-21-56 14:26:00 Test Item Value Reference Range Interpretation Comments PT (test code = PT) 12.4 s 12.0-14.7 [facility]2014-09-22 14:26:00 Test Item Value Reference Range Interpretation Comments BUN (test code = BUN) 8 7-22 [facility]2014-09-22 14:26:00 Test Item Value Reference Range Interpretation Comments Glucose Lvl (test code = Glucose Lvl) 91 70-99 [facility]2014-09-22 14:26:00 Test Item Value Reference Range Interpretation Comments CO2 (test code = CO2) 29 24-32 [facility]2014-09-22 14:26:00 Test Item Value Reference Range Interpretation Comments AGAP (test code = AGAP) 6.7 10.0-20.0 [facility]2014-09-22 14:26:00 Test Item Value Reference Range Interpretation Comments eGFR (test code = eGFR) 86 [facility]2014-09-22 14:26:00 Test Item Value Reference Range Interpretation Comments Creatinine Lvl (test code = Creatinine 0.8 0.5-1.4 Lvl) [facility]2014-09-22 14:26:00 Test Item Value Reference Range Interpretation Comments Chloride Lvl (test code = Chloride Lvl) 104 95-109 [facility]2014-09-22 14:26:00 Test Item Value Reference Range Interpretation Comments Potassium Lvl (test code = Potassium 3.7 3.5-5.1 Lvl) [facility]2014-09-22 14:26:00 Test Item Value Reference Range Interpretation Comments Sodium Lvl (test code = Sodium Lvl) 136 135-145 [facility]2014-09-22 14:26:00 Test Item Value Reference Range Interpretation Comments Calcium Lvl (test code = Calcium Lvl) 9.7 8.5-10.5 [facility] [place]ervilleXzgryejMEGVRJCOXZ6052-81-20 14:26:00 Test Item Value Reference Range Interpretation Comments MCV (test code = MCV) 101.6 80.0-98.0 [facility] [place]ervilleAdpkhldKCYEMGCRDZ4332-36-38 14:26:00 Test Item Value Reference Range Interpretation Comments MCH (test code = MCH) 35.5 pg 27.0-31.0 [facility] [place]ervilleZyowdewHHVTDQDEKU5430-29-20 14:26:00 Test Item Value Reference Range Interpretation Comments Hgb (test code = Hgb) 13.3 12.0-16.0 [facility]ervilleAhjcjsiDKTVINFUNL2642-73-56 14:26:00 Test Item Value Reference Range Interpretation Comments Hct (test code = Hct) 37.9 36.0-48.0 [facility] [place]ervilleWwfnuzcUVMHVMNYIX9476-92-81 14:26:00 Test Item Value Reference Range Interpretation Comments RBC (test code = RBC) 3.73 4.20-5.40 [facility] [place]ervilleSyfistpDQBYHTZFCI3678-03-06 14:26:00 Test Item Value Reference Range Interpretation Comments WBC (test code = WBC) 6.1 3.7-10.4 [facility]ervilleEpnmpesOFFWLBTUNR9919-58-99 14:26:00 Test Item Value Reference Range Interpretation Comments MPV (test code = MPV) 8.0 7.4-10.4 [facility]ervilleIqnfzhnZBHCLELTNN4260-51-61 14:26:00 Test Item Value Reference Range Interpretation Comments RDW (test code = RDW) 17.2 11.5-14.5 [facility]ervilleUoyadgmUASFMMQIUA3388-43-72 14:26:00 Test Item Value Reference Range Interpretation Comments Platelet (test code = Platelet) 223 133-450 [facility] [place]ervilleMviqygwRENRNTDPKY0141-88-49 14:26:00 Test Item Value Reference Range Interpretation Comments MCHC (test code = MCHC) 35.0 32.0-36.0 [facility]ervilleApogipyVDTFHOHAME4871-53-07 14:26:00 Test Item Value Reference Range Interpretation Comments INR (test code = INR) 0.93 0.85-1.17 [facility]ervilleOwuznpeWTVOAWAMXE4928-93-11 14:26:00 Test Item Value Reference Range Interpretation Comments PT (test code = PT) 12.4 s 12.0-14.7 [facility]2014-09-22 14:26:00 Test Item Value Reference Range Interpretation Comments BUN (test code = BUN) 8 - [facility]2014-09-22 14:26:00 Test Item Value Reference Range Interpretation Comments Glucose Lvl (test code = Glucose Lvl) 91 70-99 [facility]2014-09-22 14:26:00 Test Item Value Reference Range Interpretation Comments CO2 (test code = CO2) 29 24-32 [facility]2014-09-22 14:26:00 Test Item Value Reference Range Interpretation Comments AGAP (test code = AGAP) 6.7 10.0-20.0 [facility]2014-09-22 14:26:00 Test Item Value Reference Range Interpretation Comments eGFR (test code = eGFR) 86 [facility]2014-09-22 14:26:00 Test Item Value Reference Range Interpretation Comments Creatinine Lvl (test code = Creatinine 0.8 0.5-1.4 Lvl) [facility]2014-09-22 14:26:00 Test Item Value Reference Range Interpretation Comments Chloride Lvl (test code = Chloride Lvl) 104 95-109 [facility]2014-09-22 14:26:00 Test Item Value Reference Range Interpretation Comments Potassium Lvl (test code = Potassium 3.7 3.5-5.1 Lvl) [facility]2014-09-22 14:26:00 Test Item Value Reference Range Interpretation Comments Sodium Lvl (test code = Sodium Lvl) 136 135-145 [facility]2014-09-22 14:26:00 Test Item Value Reference Range Interpretation Comments Calcium Lvl (test code = Calcium Lvl) 9.7 8.5-10.5 [facility]ervilleIyfxolyVURVTFUOTJ9768-76-07 14:26:00 Test Item Value Reference Range Interpretation Comments MCV (test code = MCV) 101.6 80.0-98.0 [facility]ervilleBfglpppHGRNNRHIIR6645-20-26 14:26:00 Test Item Value Reference Range Interpretation Comments MCH (test code = MCH) 35.5 pg 27.0-31.0 [facility]ervilleWmruxlqKHYPJULDDU0560-18-49 14:26:00 Test Item Value Reference Range Interpretation Comments Hgb (test code = Hgb) 13.3 12.0-16.0 [facility]ervilleLqiftwhMJBHOOCNFL5936-52-99 14:26:00 Test Item Value Reference Range Interpretation Comments Hct (test code = Hct) 37.9 36.0-48.0 [facility]ervilleSzgivkaQSDOPDNSLL1231-72-99 14:26:00 Test Item Value Reference Range Interpretation Comments RBC (test code = RBC) 3.73 4.20-5.40 [facility]ervilleCtcrjjgLGMVDFIQKT5628-43-24 14:26:00 Test Item Value Reference Range Interpretation Comments WBC (test code = WBC) 6.1 3.7-10.4 [facility]IzrqvhtTTNJEWQJUO7300-13-27 14:26:00 Test Item Value Reference Range Interpretation Comments MPV (test code = MPV) 8.0 7.4-10.4 [facility]ervilleJkascflVQBSFHXUJT1108-18-60 14:26:00 Test Item Value Reference Range Interpretation Comments RDW (test code = RDW) 17.2 11.5-14.5 [facility]ervilleEvvdbauPJALUAKJFB8547-14-89 14:26:00 Test Item Value Reference Range Interpretation Comments Platelet (test code = Platelet) 223 133-450 [facility]ervilleHihgkovGHVRGYWEYO0486-61-82 14:26:00 Test Item Value Reference Range Interpretation Comments MCHC (test code = MCHC) 35.0 32.0-36.0 [facility]ervilleXbknszoFYHYEDWFIJ3726-60-87 14:26:00 Test Item Value Reference Range Interpretation Comments INR (test code = INR) 0.93 0.85-1.17 [facility]ervilleGqgfsluGLWBJMXTZV4940-92-06 14:26:00 Test Item Value Reference Range Interpretation Comments PT (test code = PT) 12.4 s 12.0-14.7 [facility]2014-09-22 14:26:00 Test Item Value Reference Range Interpretation Comments BUN (test code = BUN) 8 - [facility]2014-09-22 14:26:00 Test Item Value Reference Range Interpretation Comments Glucose Lvl (test code = Glucose Lvl) 91 70-99 [facility]2014-09-22 14:26:00 Test Item Value Reference Range Interpretation Comments CO2 (test code = CO2) 29 24-32 [facility]2014-09-22 14:26:00 Test Item Value Reference Range Interpretation Comments AGAP (test code = AGAP) 6.7 10.0-20.0 [facility]2014-09-22 14:26:00 Test Item Value Reference Range Interpretation Comments eGFR (test code = eGFR) 86 [facility]2014-09-22 14:26:00 Test Item Value Reference Range Interpretation Comments Creatinine Lvl (test code = Creatinine 0.8 0.5-1.4 Lvl) [facility]2014-09-22 14:26:00 Test Item Value Reference Range Interpretation Comments Chloride Lvl (test code = Chloride Lvl) 104 95-109 [facility]2014-09-22 14:26:00 Test Item Value Reference Range Interpretation Comments Potassium Lvl (test code = Potassium 3.7 3.5-5.1 Lvl) [facility]2014-09-22 14:26:00 Test Item Value Reference Range Interpretation Comments Sodium Lvl (test code = Sodium Lvl) 136 135-145 [facility]2014-09-22 14:26:00 Test Item Value Reference Range Interpretation Comments Calcium Lvl (test code = Calcium Lvl) 9.7 8.5-10.5 [facility]MubxxdjGUBEVUCDKY1057-81-06 14:26:00 Test Item Value Reference Range Interpretation Comments MCV (test code = MCV) 101.6 80.0-98.0 [facility]ervilleLvrrjeeIHMZKVOSZC4866-33-94 14:26:00 Test Item Value Reference Range Interpretation Comments MCH (test code = MCH) 35.5 pg 27.0-31.0 [facility] [place]ervilleMdrjzndNIORCISLOW9490-52-25 14:26:00 Test Item Value Reference Range Interpretation Comments Hgb (test code = Hgb) 13.3 12.0-16.0 [facility] [place]ervilleZnjwoelIRSOFOGEGU3771-98-44 14:26:00 Test Item Value Reference Range Interpretation Comments Hct (test code = Hct) 37.9 36.0-48.0 [facility] [place]ervilleXjaulkbNDTRIBHFDU6272-03-91 14:26:00 Test Item Value Reference Range Interpretation Comments RBC (test code = RBC) 3.73 4.20-5.40 [facility]ervilleAhryjxdJNLTXAOGSG5974-49-16 14:26:00 Test Item Value Reference Range Interpretation Comments WBC (test code = WBC) 6.1 3.7-10.4 [facility]HqkycsiJUPLIRYRHC9324-33-99 14:26:00 Test Item Value Reference Range Interpretation Comments MPV (test code = MPV) 8.0 7.4-10.4 [facility]ervilleGegpvavKXIWRIFBDN1854-75-09 14:26:00 Test Item Value Reference Range Interpretation Comments RDW (test code = RDW) 17.2 11.5-14.5 [facility] [place]ervilleQsfrduzIONZBDLBXM6370-94-89 14:26:00 Test Item Value Reference Range Interpretation Comments Platelet (test code = Platelet) 223 133-450 [facility] [place]ervilleGblmycgQQMCOFAAHK9811-47-03 14:26:00 Test Item Value Reference Range Interpretation Comments MCHC (test code = MCHC) 35.0 32.0-36.0 [facility]ervilleFerfbrxRXDPKQHIFH0735-10-53 14:26:00 Test Item Value Reference Range Interpretation Comments INR (test code = INR) 0.93 0.85-1.17 [facility]ervilleZgoqflvKPNCEJSQEJ2960-93-18 14:26:00 Test Item Value Reference Range Interpretation Comments PT (test code = PT) 12.4 s 12.0-14.7 [facility]2014-09-22 14:26:00 Test Item Value Reference Range Interpretation Comments BUN (test code = BUN) 8 7-22 [facility]2014-09-22 14:26:00 Test Item Value Reference Range Interpretation Comments Glucose Lvl (test code = Glucose Lvl) 91 70-99 [facility]2014-09-22 14:26:00 Test Item Value Reference Range Interpretation Comments CO2 (test code = CO2) 29 24-32 [facility]2014-09-22 14:26:00 Test Item Value Reference Range Interpretation Comments AGAP (test code = AGAP) 6.7 10.0-20.0 [facility]2014-09-22 14:26:00 Test Item Value Reference Range Interpretation Comments eGFR (test code = eGFR) 86 [facility]2014-09-22 14:26:00 Test Item Value Reference Range Interpretation Comments Creatinine Lvl (test code = Creatinine 0.8 0.5-1.4 Lvl) [facility]2014-09-22 14:26:00 Test Item Value Reference Range Interpretation Comments Chloride Lvl (test code = Chloride Lvl) 104 95-109 [facility]2014-09-22 14:26:00 Test Item Value Reference Range Interpretation Comments Potassium Lvl (test code = Potassium 3.7 3.5-5.1 Lvl) [facility]2014-09-22 14:26:00 Test Item Value Reference Range Interpretation Comments Sodium Lvl (test code = Sodium Lvl) 136 135-145 [facility]2014-09-22 14:26:00 Test Item Value Reference Range Interpretation Comments Calcium Lvl (test code = Calcium Lvl) 9.7 8.5-10.5 [facility]LnwezccYUTEOTJGVN5492-37-53 14:26:00 Test Item Value Reference Range Interpretation Comments MCV (test code = MCV) 101.6 80.0-98.0 [facility] [place]EuihdliOJUNACRRQX3052-26-07 14:26:00 Test Item Value Reference Range Interpretation Comments MCH (test code = MCH) 35.5 pg 27.0-31.0 [facility] [place]VmtdeeyGUZOMRERBN1616-14-95 14:26:00 Test Item Value Reference Range Interpretation Comments Hgb (test code = Hgb) 13.3 12.0-16.0 [facility] [place]HormrfoDDVXLCDFBA0156-88-27 14:26:00 Test Item Value Reference Range Interpretation Comments Hct (test code = Hct) 37.9 36.0-48.0 [facility] [place]LvypyifTHWBKMGWOG3224-95-39 14:26:00 Test Item Value Reference Range Interpretation Comments RBC (test code = RBC) 3.73 4.20-5.40 [place] 653004-09-22 14:26:00 Test Item Value Reference Range Interpretation Comments WBC (test code = WBC) 6.1 3.7-10.4 [facility] [place]XysykmqGWMXHYZKVB6472-30-43 14:26:00 Test Item Value Reference Range Interpretation Comments MPV (test code = MPV) 8.0 7.4-10.4 [facility] [place]ZrswetpCHPUZRZKLF2065-93-74 14:26:00 Test Item Value Reference Range Interpretation Comments RDW (test code = RDW) 17.2 11.5-14.5 [facility] [place]ZnaqobaNSRQHIOUWT1106-88-40 14:26:00 Test Item Value Reference Range Interpretation Comments Platelet (test code = Platelet) 223 133-450 [facility] [place]LjtkqbqUXMTINOVWU5856-41-33 14:26:00 Test Item Value Reference Range Interpretation Comments MCHC (test code = MCHC) 35.0 32.0-36.0 [facility] [place]ZarrjrfWVVQXIMHCV4793-98-60 14:26:00 Test Item Value Reference Range Interpretation Comments INR (test code = INR) 0.93 0.85-1.17 [facility] [place]TldsbzxYOPHSVTTNM6046-11-86 14:26:00 Test Item Value Reference Range Interpretation Comments PT (test code = PT) 12.4 s 12.0-14.7 [facility]2014-09-22 14:26:00 Test Item Value Reference Range Interpretation Comments BUN (test code = BUN) 8 - [facility]2014-09-22 14:26:00 Test Item Value Reference Range Interpretation Comments Glucose Lvl (test code = Glucose Lvl) 91 70-99 [facility]2014-09-22 14:26:00 Test Item Value Reference Range Interpretation Comments CO2 (test code = CO2) 29 24-32 [facility]2014-09-22 14:26:00 Test Item Value Reference Range Interpretation Comments AGAP (test code = AGAP) 6.7 10.0-20.0 [facility]2014-09-22 14:26:00 Test Item Value Reference Range Interpretation Comments eGFR (test code = eGFR) 86 [facility]2014-09-22 14:26:00 Test Item Value Reference Range Interpretation Comments Creatinine Lvl (test code = Creatinine 0.8 0.5-1.4 Lvl) [facility]2014-09-22 14:26:00 Test Item Value Reference Range Interpretation Comments Chloride Lvl (test code = Chloride Lvl) 104 95-109 [facility]2014-09-22 14:26:00 Test Item Value Reference Range Interpretation Comments Potassium Lvl (test code = Potassium 3.7 3.5-5.1 Lvl) [facility]2014-09-22 14:26:00 Test Item Value Reference Range Interpretation Comments Sodium Lvl (test code = Sodium Lvl) 136 135-145 [facility]2014-09-22 14:26:00 Test Item Value Reference Range Interpretation Comments Calcium Lvl (test code = Calcium Lvl) 9.7 8.5-10.5 [facility] [place]PtwcxnyNZVPJPCWTU8851-22-32 14:26:00 Test Item Value Reference Range Interpretation Comments MCV (test code = MCV) 101.6 80.0-98.0 [facility] [place]ervilleOxtaxegVFQGCRJEIG5605-19-57 14:26:00 Test Item Value Reference Range Interpretation Comments MCH (test code = MCH) 35.5 pg 27.0-31.0 [facility] [place]NtzunntPEVJHJBWEF6112-79-35 14:26:00 Test Item Value Reference Range Interpretation Comments Hgb (test code = Hgb) 13.3 12.0-16.0 [facility] [place]XxwmmmqUPVCCGQDGV9187-28-64 14:26:00 Test Item Value Reference Range Interpretation Comments Hct (test code = Hct) 37.9 36.0-48.0 [facility] [place]ervilleUcvljahKAZKQXBPMT5344-85-43 14:26:00 Test Item Value Reference Range Interpretation Comments RBC (test code = RBC) 3.73 4.20-5.40 [facility] [place]ervilleSejxtynJFGGXZYQQC2449-36-31 14:26:00 Test Item Value Reference Range Interpretation Comments WBC (test code = WBC) 6.1 3.7-10.4 [facility] [place]EzqqfshWXKBSXKDWO5297-78-82 14:26:00 Test Item Value Reference Range Interpretation Comments MPV (test code = MPV) 8.0 7.4-10.4 [facility] [place]IufybwiYZGVMIVGCE4188-08-15 14:26:00 Test Item Value Reference Range Interpretation Comments RDW (test code = RDW) 17.2 11.5-14.5 [facility] [place]QlbyerzTMBLLGQAVP0109-53-21 14:26:00 Test Item Value Reference Range Interpretation Comments Platelet (test code = Platelet) 223 133-450 [facility] [place]QjmudpgOGVWWLKWFT8241-11-52 14:26:00 Test Item Value Reference Range Interpretation Comments MCHC (test code = MCHC) 35.0 32.0-36.0 [facility] [place]ervilleMdxhowpHKJPIFYHSA0901-97-84 14:26:00 Test Item Value Reference Range Interpretation Comments INR (test code = INR) 0.93 0.85-1.17 [facility] [place]ervilleUhowbdhSNHRAYIPLU9282-80-15 14:26:00 Test Item Value Reference Range Interpretation Comments PT (test code = PT) 12.4 s 12.0-14.7 [facility]2014-09-22 14:26:00 Test Item Value Reference Range Interpretation Comments BUN (test code = BUN) 8 7- [facility]2014-09-22 14:26:00 Test Item Value Reference Range Interpretation Comments Glucose Lvl (test code = Glucose Lvl) 91 70-99 [facility]2014-09-22 14:26:00 Test Item Value Reference Range Interpretation Comments CO2 (test code = CO2) 29 24-32 [facility]2014-09-22 14:26:00 Test Item Value Reference Range Interpretation Comments AGAP (test code = AGAP) 6.7 10.0-20.0 [facility]2014-09-22 14:26:00 Test Item Value Reference Range Interpretation Comments eGFR (test code = eGFR) 86 [facility]2014-09-22 14:26:00 Test Item Value Reference Range Interpretation Comments Creatinine Lvl (test code = Creatinine 0.8 0.5-1.4 Lvl) [facility]2014-09-22 14:26:00 Test Item Value Reference Range Interpretation Comments Chloride Lvl (test code = Chloride Lvl) 104 95-109 [facility]2014-09-22 14:26:00 Test Item Value Reference Range Interpretation Comments Potassium Lvl (test code = Potassium 3.7 3.5-5.1 Lvl) [facility]2014-09-22 14:26:00 Test Item Value Reference Range Interpretation Comments Sodium Lvl (test code = Sodium Lvl) 136 135-145 [facility]2014-09-22 14:26:00 Test Item Value Reference Range Interpretation Comments Calcium Lvl (test code = Calcium Lvl) 9.7 8.5-10.5 [facility] [place]EwblffcCPDLGVDBLG7598-45-62 14:26:00 Test Item Value Reference Range Interpretation Comments MCV (test code = MCV) 101.6 80.0-98.0 [facility] [place]IsoxvifZWGVBGVQIS6788-87-62 14:26:00 Test Item Value Reference Range Interpretation Comments MCH (test code = MCH) 35.5 pg 27.0-31.0 [facility] [place]ervilleUzvifaeXXTJBGHLDG4372-34-86 14:26:00 Test Item Value Reference Range Interpretation Comments Hgb (test code = Hgb) 13.3 12.0-16.0 [facility] [place]ImbhxjlTLNIIPIJSQ4165-80-44 14:26:00 Test Item Value Reference Range Interpretation Comments Hct (test code = Hct) 37.9 36.0-48.0 [facility] [place]XtpcddjREHAGIOBUB9350-92-50 14:26:00 Test Item Value Reference Range Interpretation Comments RBC (test code = RBC) 3.73 4.20-5.40 [facility] [place]ervilleYzmedyyHMHQNHFPZF6357-11-79 14:26:00 Test Item Value Reference Range Interpretation Comments WBC (test code = WBC) 6.1 3.7-10.4 [facility] [place]ervilleLungeddPTCEEGCCTY6653-09-86 14:26:00 Test Item Value Reference Range Interpretation Comments MPV (test code = MPV) 8.0 7.4-10.4 [facility] [place]ervilleAepllauNEDPTSYBUS4099-03-17 14:26:00 Test Item Value Reference Range Interpretation Comments RDW (test code = RDW) 17.2 11.5-14.5 [facility] [place]ervilleYrxvzjbPYGVSADKXQ8507-84-69 14:26:00 Test Item Value Reference Range Interpretation Comments Platelet (test code = Platelet) 223 133-450 [facility] [place]ervilleFeiuxqjKAJPKFSBPE4832-09-51 14:26:00 Test Item Value Reference Range Interpretation Comments MCHC (test code = MCHC) 35.0 32.0-36.0 [facility] [place]ervilleFpzgikuUSUQQAXOYI4949-20-78 14:26:00 Test Item Value Reference Range Interpretation Comments INR (test code = INR) 0.93 0.85-1.17 [facility] [place]ervilleVnmqcjmTQNURUEBCK6800-09-86 14:26:00 Test Item Value Reference Range Interpretation Comments PT (test code = PT) 12.4 s 12.0-14.7 [facility]2014-09-22 14:26:00 Test Item Value Reference Range Interpretation Comments BUN (test code = BUN) 8 7-22 [facility]2014-09-22 14:26:00 Test Item Value Reference Range Interpretation Comments Glucose Lvl (test code = Glucose Lvl) 91 70-99 [facility]2014-09-22 14:26:00 Test Item Value Reference Range Interpretation Comments CO2 (test code = CO2) 29 24-32 [facility]2014-09-22 14:26:00 Test Item Value Reference Range Interpretation Comments AGAP (test code = AGAP) 6.7 10.0-20.0 [facility]2014-09-22 14:26:00 Test Item Value Reference Range Interpretation Comments eGFR (test code = eGFR) 86 [facility]2014-09-22 14:26:00 Test Item Value Reference Range Interpretation Comments Creatinine Lvl (test code = Creatinine 0.8 0.5-1.4 Lvl) [facility]2014-09-22 14:26:00 Test Item Value Reference Range Interpretation Comments Chloride Lvl (test code = Chloride Lvl) 104 95-109 [facility]2014-09-22 14:26:00 Test Item Value Reference Range Interpretation Comments Potassium Lvl (test code = Potassium 3.7 3.5-5.1 Lvl) [facility]2014-09-22 14:26:00 Test Item Value Reference Range Interpretation Comments Sodium Lvl (test code = Sodium Lvl) 136 135-145 [facility]2014-09-22 14:26:00 Test Item Value Reference Range Interpretation Comments Calcium Lvl (test code = Calcium Lvl) 9.7 8.5-10.5 [facility] [place]ervilleOnkohexXZNQYZHIJK9509-91-19 14:26:00 Test Item Value Reference Range Interpretation Comments MCV (test code = MCV) 101.6 80.0-98.0 [facility] [place]ervilleHvdkmhaHKENDBDIMG6328-00-16 14:26:00 Test Item Value Reference Range Interpretation Comments MCH (test code = MCH) 35.5 pg 27.0-31.0 [facility] [place]ervilleHitkfsbNLCZVYKMAM0480-39-76 14:26:00 Test Item Value Reference Range Interpretation Comments Hgb (test code = Hgb) 13.3 12.0-16.0 [facility] [place]ervilleThxbptkRZUHKWZYYT1241-60-62 14:26:00 Test Item Value Reference Range Interpretation Comments Hct (test code = Hct) 37.9 36.0-48.0 [facility] [place]ervilleCofixhxSOGMPECOCX8764-96-17 14:26:00 Test Item Value Reference Range Interpretation Comments RBC (test code = RBC) 3.73 4.20-5.40 [facility] [place]ervilleSyvsdaiDWUYFQIFKT8539-23-68 14:26:00 Test Item Value Reference Range Interpretation Comments WBC (test code = WBC) 6.1 3.7-10.4 [facility] [place]ervilleRsyhpikZBHTJATBVE2825-15-32 14:26:00 Test Item Value Reference Range Interpretation Comments MPV (test code = MPV) 8.0 7.4-10.4 [facility] [place]ervilleTxbyxkvAUHALKYNSF6469-22-81 14:26:00 Test Item Value Reference Range Interpretation Comments RDW (test code = RDW) 17.2 11.5-14.5 [facility] [place]ervilleCmmnnxbYDRAESSHRA7701-92-28 14:26:00 Test Item Value Reference Range Interpretation Comments Platelet (test code = Platelet) 223 133-450 [facility] [place]ervilleDcbmqijNCWAWALTEA5681-32-10 14:26:00 Test Item Value Reference Range Interpretation Comments MCHC (test code = MCHC) 35.0 32.0-36.0 [facility] [place]ervilleNxxtauzVIMEEXHJMW8797-51-61 14:26:00 Test Item Value Reference Range Interpretation Comments INR (test code = INR) 0.93 0.85-1.17 [facility] [place]ervilleIlobiimUFGRAVZKRV1442-41-12 14:26:00 Test Item Value Reference Range Interpretation Comments PT (test code = PT) 12.4 s 12.0-14.7 [facility]2014-09-22 14:26:00 Test Item Value Reference Range Interpretation Comments BUN (test code = BUN) 8 7-22 [facility]2014-09-22 14:26:00 Test Item Value Reference Range Interpretation Comments Glucose Lvl (test code = Glucose Lvl) 91 70-99 [facility]2014-09-22 14:26:00 Test Item Value Reference Range Interpretation Comments CO2 (test code = CO2) 29 24-32 [facility]2014-09-22 14:26:00 Test Item Value Reference Range Interpretation Comments AGAP (test code = AGAP) 6.7 10.0-20.0 [facility]2014-09-22 14:26:00 Test Item Value Reference Range Interpretation Comments eGFR (test code = eGFR) 86 [facility]2014-09-22 14:26:00 Test Item Value Reference Range Interpretation Comments Creatinine Lvl (test code = Creatinine 0.8 0.5-1.4 Lvl) [facility]2014-09-22 14:26:00 Test Item Value Reference Range Interpretation Comments Chloride Lvl (test code = Chloride Lvl) 104 95-109 [facility]2014-09-22 14:26:00 Test Item Value Reference Range Interpretation Comments Potassium Lvl (test code = Potassium 3.7 3.5-5.1 Lvl) [facility]2014-09-22 14:26:00 Test Item Value Reference Range Interpretation Comments Sodium Lvl (test code = Sodium Lvl) 136 135-145 [facility]2014-09-22 14:26:00 Test Item Value Reference Range Interpretation Comments Calcium Lvl (test code = Calcium Lvl) 9.7 8.5-10.5 [facility] [place]ervilleJuxqahnZBCEEJWTRW4707-38-75 14:26:00 Test Item Value Reference Range Interpretation Comments MCV (test code = MCV) 101.6 80.0-98.0 [facility] [place]ervilleXfwyfsoFXWCQDJLAA6373-71-09 14:26:00 Test Item Value Reference Range Interpretation Comments MCH (test code = MCH) 35.5 pg 27.0-31.0 [facility] [place]ervilleSzfzkhuBHPNYWCONY8129-66-29 14:26:00 Test Item Value Reference Range Interpretation Comments Hgb (test code = Hgb) 13.3 12.0-16.0 [place] [address]-09-22 14:26:00 Test Item Value Reference Range Interpretation Comments Hct (test code = Hct) 37.9 36.0-48.0 [facility] [place]ervilleIyxebofYJZOTZQRJO4350-46-43 14:26:00 Test Item Value Reference Range Interpretation Comments RBC (test code = RBC) 3.73 4.20-5.40 [place] 653004-09-22 14:26:00 Test Item Value Reference Range Interpretation Comments WBC (test code = WBC) 6.1 3.7-10.4 [facility] [place]ervilleWjgwdogQVDWMMSKRV3340-85-25 14:26:00 Test Item Value Reference Range Interpretation Comments MPV (test code = MPV) 8.0 7.4-10.4 [facility] [place]ervilleAbremqeTSDERSCLWF5271-73-05 14:26:00 Test Item Value Reference Range Interpretation Comments RDW (test code = RDW) 17.2 11.5-14.5 [facility] [place]ervilleCkvgvuyRSAYTCCLQG7521-63-67 14:26:00 Test Item Value Reference Range Interpretation Comments Platelet (test code = Platelet) 223 133-450 [facility] [place]ervilleLiqdcarSCHPUUFOIS4368-13-89 14:26:00 Test Item Value Reference Range Interpretation Comments MCHC (test code = MCHC) 35.0 32.0-36.0 [facility] [place]ervilleGemfxhwQHSQBNUKWP4677-06-44 14:26:00 Test Item Value Reference Range Interpretation Comments INR (test code = INR) 0.93 0.85-1.17 [facility] [place]ervilleGlazgxnHGPXSKVNKV6299-54-02 14:26:00 Test Item Value Reference Range Interpretation Comments PT (test code = PT) 12.4 s 12.0-14.7 [facility]2014-09-22 14:26:00 Test Item Value Reference Range Interpretation Comments BUN (test code = BUN) 8 7-22 [facility]2014-09-22 14:26:00 Test Item Value Reference Range Interpretation Comments Glucose Lvl (test code = Glucose Lvl) 91 70-99 [facility]2014-09-22 14:26:00 Test Item Value Reference Range Interpretation Comments CO2 (test code = CO2) 29 24-32 [facility]2014-09-22 14:26:00 Test Item Value Reference Range Interpretation Comments AGAP (test code = AGAP) 6.7 10.0-20.0 [facility]2014-09-22 14:26:00 Test Item Value Reference Range Interpretation Comments eGFR (test code = eGFR) 86 [facility]2014-09-22 14:26:00 Test Item Value Reference Range Interpretation Comments Creatinine Lvl (test code = Creatinine 0.8 0.5-1.4 Lvl) [facility]2014-09-22 14:26:00 Test Item Value Reference Range Interpretation Comments Chloride Lvl (test code = Chloride Lvl) 104 95-109 [facility]2014-09-22 14:26:00 Test Item Value Reference Range Interpretation Comments Potassium Lvl (test code = Potassium 3.7 3.5-5.1 Lvl) [facility]2014-09-22 14:26:00 Test Item Value Reference Range Interpretation Comments Sodium Lvl (test code = Sodium Lvl) 136 135-145 [facility]2014-09-22 14:26:00 Test Item Value Reference Range Interpretation Comments Calcium Lvl (test code = Calcium Lvl) 9.7 8.5-10.5 [facility] [place]ervilleNkcbruzSAPTAKZMCD2580-84-06 14:26:00 Test Item Value Reference Range Interpretation Comments MCV (test code = MCV) 101.6 80.0-98.0 [facility] [place]ervilleYeoqnrkBWZBKYUMTE9997-80-90 14:26:00 Test Item Value Reference Range Interpretation Comments MCH (test code = MCH) 35.5 pg 27.0-31.0 [facility] [place]ervilleMugmwndGINIRMWLWQ4514-83-88 14:26:00 Test Item Value Reference Range Interpretation Comments Hgb (test code = Hgb) 13.3 12.0-16.0 [facility] [place]ervilleFglyuunJMZTHDBIAU5421-72-43 14:26:00 Test Item Value Reference Range Interpretation Comments Hct (test code = Hct) 37.9 36.0-48.0 [facility] [place]ervilleFgprnvbZPHWZZCZUZ8087-14-97 14:26:00 Test Item Value Reference Range Interpretation Comments RBC (test code = RBC) 3.73 4.20-5.40 [facility] [place]ervilleDljqtgfEQLEYZVJXI3026-48-11 14:26:00 Test Item Value Reference Range Interpretation Comments WBC (test code = WBC) 6.1 3.7-10.4 [facility] [place]ervilleDihbnzoOCBRWICECK5489-62-87 14:26:00 Test Item Value Reference Range Interpretation Comments MPV (test code = MPV) 8.0 7.4-10.4 [facility] [place]ervilleVlsfsnoBMIPCIPGWB7707-08-17 14:26:00 Test Item Value Reference Range Interpretation Comments RDW (test code = RDW) 17.2 11.5-14.5 [facility] [place]ervilleAgvfkkfUHGVMZAHVR5132-84-21 14:26:00 Test Item Value Reference Range Interpretation Comments Platelet (test code = Platelet) 223 133-450 [facility] [place]ervilleVvbbhjsLGSGIFHQOO6935-88-13 14:26:00 Test Item Value Reference Range Interpretation Comments MCHC (test code = MCHC) 35.0 32.0-36.0 [facility] [place]ervilleCxcdypgJHOHIMQRBG4622-82-28 14:26:00 Test Item Value Reference Range Interpretation Comments INR (test code = INR) 0.93 0.85-1.17 [facility] [place]ervilleTpjgshbORBZXDEWST4120-62-18 14:26:00 Test Item Value Reference Range Interpretation Comments PT (test code = PT) 12.4 s 12.0-14.7 [facility]2014-09-22 14:26:00 Test Item Value Reference Range Interpretation Comments BUN (test code = BUN) 8 - [facility]2014-09-22 14:26:00 Test Item Value Reference Range Interpretation Comments Glucose Lvl (test code = Glucose Lvl) 91 70-99 [facility]2014-09-22 14:26:00 Test Item Value Reference Range Interpretation Comments CO2 (test code = CO2) 29 24-32 [facility]2014-09-22 14:26:00 Test Item Value Reference Range Interpretation Comments AGAP (test code = AGAP) 6.7 10.0-20.0 [facility]2014-09-22 14:26:00 Test Item Value Reference Range Interpretation Comments eGFR (test code = eGFR) 86 [facility]2014-09-22 14:26:00 Test Item Value Reference Range Interpretation Comments Creatinine Lvl (test code = Creatinine 0.8 0.5-1.4 Lvl) [facility]2014-09-22 14:26:00 Test Item Value Reference Range Interpretation Comments Chloride Lvl (test code = Chloride Lvl) 104 95-109 [facility]2014-09-22 14:26:00 Test Item Value Reference Range Interpretation Comments Potassium Lvl (test code = Potassium 3.7 3.5-5.1 Lvl) [facility]2014-09-22 14:26:00 Test Item Value Reference Range Interpretation Comments Sodium Lvl (test code = Sodium Lvl) 136 135-145 [facility]2014-09-22 14:26:00 Test Item Value Reference Range Interpretation Comments Calcium Lvl (test code = Calcium Lvl) 9.7 8.5-10.5 [facility] [place]ervilleZwusjzzDWLJYCBELW7563-77-60 14:26:00 Test Item Value Reference Range Interpretation Comments MCV (test code = MCV) 101.6 80.0-98.0 [facility] [place]ervilleBqfcggvYTGPEAZARI5780-88-35 14:26:00 Test Item Value Reference Range Interpretation Comments MCH (test code = MCH) 35.5 pg 27.0-31.0 [facility] [place]ervilleVcrcoehNMRDISTKTZ1119-03-85 14:26:00 Test Item Value Reference Range Interpretation Comments Hgb (test code = Hgb) 13.3 12.0-16.0 [facility] [place]ervilleVtdckiqTOYDPTDSDH7825-18-14 14:26:00 Test Item Value Reference Range Interpretation Comments Hct (test code = Hct) 37.9 36.0-48.0 [facility] [place]ervilleSsuqzmsNYVROADOFO5597-11-96 14:26:00 Test Item Value Reference Range Interpretation Comments RBC (test code = RBC) 3.73 4.20-5.40 [facility]ervilleAlainhbFNWBAAXYAJ2152-78-57 14:26:00 Test Item Value Reference Range Interpretation Comments WBC (test code = WBC) 6.1 3.7-10.4 [facility] [place]ervilleGhyzycbXEOLNFMQGW8989-95-60 14:26:00 Test Item Value Reference Range Interpretation Comments MPV (test code = MPV) 8.0 7.4-10.4 [facility] [place]ervilleBgcenkkNJWDCGEGOU3306-81-19 14:26:00 Test Item Value Reference Range Interpretation Comments RDW (test code = RDW) 17.2 11.5-14.5 [facility] [place]ervilleDaguvdtYHJGJDQQUL9249-08-22 14:26:00 Test Item Value Reference Range Interpretation Comments Platelet (test code = Platelet) 223 133-450 [facility] [place]ervilleEmrakrdFXEOOEEXFN5093-97-83 14:26:00 Test Item Value Reference Range Interpretation Comments MCHC (test code = MCHC) 35.0 32.0-36.0 [facility] [place]ervilleIeagvyaRMHSSJYGOC8075-85-84 14:26:00 Test Item Value Reference Range Interpretation Comments INR (test code = INR) 0.93 0.85-1.17 [facility] [place]ervilleJcjizllBHLERFDYZG7618-56-93 14:26:00 Test Item Value Reference Range Interpretation Comments PT (test code = PT) 12.4 s 12.0-14.7 [facility]2014-09-22 14:26:00 Test Item Value Reference Range Interpretation Comments BUN (test code = BUN) 8 7-22 [facility]2014-09-22 14:26:00 Test Item Value Reference Range Interpretation Comments Glucose Lvl (test code = Glucose Lvl) 91 70-99 [facility]2014-09-22 14:26:00 Test Item Value Reference Range Interpretation Comments CO2 (test code = CO2) 29 24-32 [facility]2014-09-22 14:26:00 Test Item Value Reference Range Interpretation Comments AGAP (test code = AGAP) 6.7 10.0-20.0 [facility]2014-09-22 14:26:00 Test Item Value Reference Range Interpretation Comments eGFR (test code = eGFR) 86 [facility]2014-09-22 14:26:00 Test Item Value Reference Range Interpretation Comments Creatinine Lvl (test code = Creatinine 0.8 0.5-1.4 Lvl) [facility]2014-09-22 14:26:00 Test Item Value Reference Range Interpretation Comments Chloride Lvl (test code = Chloride Lvl) 104 95-109 [facility]2014-09-22 14:26:00 Test Item Value Reference Range Interpretation Comments Potassium Lvl (test code = Potassium 3.7 3.5-5.1 Lvl) [facility]2014-09-22 14:26:00 Test Item Value Reference Range Interpretation Comments Sodium Lvl (test code = Sodium Lvl) 136 135-145 [facility]2014-09-22 14:26:00 Test Item Value Reference Range Interpretation Comments Calcium Lvl (test code = Calcium Lvl) 9.7 8.5-10.5 [facility] [place]ervilleOhdufihOHXRAPUXTJ5541-41-17 14:26:00 Test Item Value Reference Range Interpretation Comments MCV (test code = MCV) 101.6 80.0-98.0 [facility] [place]ervilleRnbhcccCLUSQEUSEG3188-51-86 14:26:00 Test Item Value Reference Range Interpretation Comments MCH (test code = MCH) 35.5 pg 27.0-31.0 [facility]ervilleBvwnkztPJXYQVDPXD7473-56-55 14:26:00 Test Item Value Reference Range Interpretation Comments Hgb (test code = Hgb) 13.3 12.0-16.0 [place] 653004-09-22 14:26:00 Test Item Value Reference Range Interpretation Comments Hct (test code = Hct) 37.9 36.0-48.0 [facility] [place]ervilleXkdviolQHTDLZKCGP9984-63-56 14:26:00 Test Item Value Reference Range Interpretation Comments RBC (test code = RBC) 3.73 4.20-5.40 [facility] [place]ervilleIqmmdkyFSTQHEGAXJ3695-78-69 14:26:00 Test Item Value Reference Range Interpretation Comments WBC (test code = WBC) 6.1 3.7-10.4 [facility] [place]ervilleNmozydnEYULLOVFBO4797-75-53 14:26:00 Test Item Value Reference Range Interpretation Comments MPV (test code = MPV) 8.0 7.4-10.4 [facility] [place]ervilleWoavedpEAHMTZYCMR9169-84-90 14:26:00 Test Item Value Reference Range Interpretation Comments RDW (test code = RDW) 17.2 11.5-14.5 [facility] [place]ervilleWkrzmreMNVSBFSWMA1505-28-02 14:26:00 Test Item Value Reference Range Interpretation Comments Platelet (test code = Platelet) 223 133-450 [facility] [place]ervilleGjyiywlUBELSCETKJ0310-51-03 14:26:00 Test Item Value Reference Range Interpretation Comments MCHC (test code = MCHC) 35.0 32.0-36.0 [facility]ervilleOjkdqusAZADLOTHGI7523-86-69 14:26:00 Test Item Value Reference Range Interpretation Comments INR (test code = INR) 0.93 0.85-1.17 [facility] [place]ervilleHgdydpgAAYATBAYGF5075-47-26 14:26:00 Test Item Value Reference Range Interpretation Comments PT (test code = PT) 12.4 s 12.0-14.7 [facility]2014-09-22 14:26:00 Test Item Value Reference Range Interpretation Comments BUN (test code = BUN) 8 7-22 [facility]2014-09-22 14:26:00 Test Item Value Reference Range Interpretation Comments Glucose Lvl (test code = Glucose Lvl) 91 70-99 [facility]2014-09-22 14:26:00 Test Item Value Reference Range Interpretation Comments CO2 (test code = CO2) 29 24-32 [facility]2014-09-22 14:26:00 Test Item Value Reference Range Interpretation Comments AGAP (test code = AGAP) 6.7 10.0-20.0 [facility]2014-09-22 14:26:00 Test Item Value Reference Range Interpretation Comments eGFR (test code = eGFR) 86 [facility]2014-09-22 14:26:00 Test Item Value Reference Range Interpretation Comments Creatinine Lvl (test code = Creatinine 0.8 0.5-1.4 Lvl) [facility]2014-09-22 14:26:00 Test Item Value Reference Range Interpretation Comments Chloride Lvl (test code = Chloride Lvl) 104 95-109 [facility]2014-09-22 14:26:00 Test Item Value Reference Range Interpretation Comments Potassium Lvl (test code = Potassium 3.7 3.5-5.1 Lvl) [facility]2014-09-22 14:26:00 Test Item Value Reference Range Interpretation Comments Sodium Lvl (test code = Sodium Lvl) 136 135-145 [facility]2014-09-22 14:26:00 Test Item Value Reference Range Interpretation Comments Calcium Lvl (test code = Calcium Lvl) 9.7 8.5-10.5 [place] 653004-09-22 14:26:00 Test Item Value Reference Range Interpretation Comments MCV (test code = MCV) 101.6 80.0-98.0 [facility]ervilleSjftntqYMZBVOPIWX2283-17-57 14:26:00 Test Item Value Reference Range Interpretation Comments MCH (test code = MCH) 35.5 pg 27.0-31.0 [facility]ervilleLmdjvivLOYHOKEMGD0789-62-63 14:26:00 Test Item Value Reference Range Interpretation Comments Hgb (test code = Hgb) 13.3 12.0-16.0 [facility] [place]ervilleCmvufsxTAGQCNWLNB0362-10-59 14:26:00 Test Item Value Reference Range Interpretation Comments Hct (test code = Hct) 37.9 36.0-48.0 [facility] [place]ervilleGlpizwoDSIPBKEPKU3081-80-77 14:26:00 Test Item Value Reference Range Interpretation Comments RBC (test code = RBC) 3.73 4.20-5.40 [facility] [place]ervilleJpwdamdVLZSBTTAPY8557-15-13 14:26:00 Test Item Value Reference Range Interpretation Comments WBC (test code = WBC) 6.1 3.7-10.4 [place] 653004-09-22 14:26:00 Test Item Value Reference Range Interpretation Comments MPV (test code = MPV) 8.0 7.4-10.4 [facility] [place]ervilleXbsttkzHMUPMIYSEL3634-22-91 14:26:00 Test Item Value Reference Range Interpretation Comments RDW (test code = RDW) 17.2 11.5-14.5 [facility] [place]ervilleBvkievmIQEUWGTCTL2191-06-12 14:26:00 Test Item Value Reference Range Interpretation Comments Platelet (test code = Platelet) 223 133-450 [facility] [place]ervilleHcelrxfFDHBCNTDBK6602-85-27 14:26:00 Test Item Value Reference Range Interpretation Comments MCHC (test code = MCHC) 35.0 32.0-36.0 [facility] [place]ervilleIgclobqRKDJRQJFMJ3300-16-22 14:26:00 Test Item Value Reference Range Interpretation Comments INR (test code = INR) 0.93 0.85-1.17 [facility] [place]ervilleYfetxsgDLGEMMUFVU5227-09-51 14:26:00 Test Item Value Reference Range Interpretation Comments PT (test code = PT) 12.4 s 12.0-14.7 [facility]2014-09-22 14:26:00 Test Item Value Reference Range Interpretation Comments BUN (test code = BUN) 8 7-22 [facility]2014-09-22 14:26:00 Test Item Value Reference Range Interpretation Comments Glucose Lvl (test code = Glucose Lvl) 91 70-99 [facility]2014-09-22 14:26:00 Test Item Value Reference Range Interpretation Comments CO2 (test code = CO2) 29 24-32 [facility]2014-09-22 14:26:00 Test Item Value Reference Range Interpretation Comments AGAP (test code = AGAP) 6.7 10.0-20.0 [facility]2014-09-22 14:26:00 Test Item Value Reference Range Interpretation Comments eGFR (test code = eGFR) 86 [facility]2014-09-22 14:26:00 Test Item Value Reference Range Interpretation Comments Creatinine Lvl (test code = Creatinine 0.8 0.5-1.4 Lvl) [facility]2014-09-22 14:26:00 Test Item Value Reference Range Interpretation Comments Chloride Lvl (test code = Chloride Lvl) 104 95-109 [facility]2014-09-22 14:26:00 Test Item Value Reference Range Interpretation Comments Potassium Lvl (test code = Potassium 3.7 3.5-5.1 Lvl) [facility]2014-09-22 14:26:00 Test Item Value Reference Range Interpretation Comments Sodium Lvl (test code = Sodium Lvl) 136 135-145 [facility]2014-09-22 14:26:00 Test Item Value Reference Range Interpretation Comments Calcium Lvl (test code = Calcium Lvl) 9.7 8.5-10.5 [facility]ervilleLzhseinOMPPKTQWCU6852-80-48 14:26:00 Test Item Value Reference Range Interpretation Comments MCV (test code = MCV) 101.6 80.0-98.0 [facility] [place]ervilleUrnieakQNOOGJFJNG6698-87-58 14:26:00 Test Item Value Reference Range Interpretation Comments MCH (test code = MCH) 35.5 pg 27.0-31.0 [facility] [place]ervilleFnflaekSPULSFKHIL9103-57-58 14:26:00 Test Item Value Reference Range Interpretation Comments Hgb (test code = Hgb) 13.3 12.0-16.0 [facility] [place]ervilleMlzjoftIAWHLDDISR3751-38-64 14:26:00 Test Item Value Reference Range Interpretation Comments Hct (test code = Hct) 37.9 36.0-48.0 [facility] [place]ervilleCmbvkwbLRTDOBFOKJ2478-09-68 14:26:00 Test Item Value Reference Range Interpretation Comments RBC (test code = RBC) 3.73 4.20-5.40 [facility] [place]ervilleWepzmayBXRGLICDVE6638-04-95 14:26:00 Test Item Value Reference Range Interpretation Comments WBC (test code = WBC) 6.1 3.7-10.4 [facility] [place]ervilleKbqxoyoMDUNUNNUXG9127-46-24 14:26:00 Test Item Value Reference Range Interpretation Comments MPV (test code = MPV) 8.0 7.4-10.4 [facility]ervilleGkpuhzlJJQATCCMWJ3859-32-47 14:26:00 Test Item Value Reference Range Interpretation Comments RDW (test code = RDW) 17.2 11.5-14.5 [facility] [place]ervilleVadpgdjQLNRNYEBPO8096-08-10 14:26:00 Test Item Value Reference Range Interpretation Comments Platelet (test code = Platelet) 223 133-450 [facility] [place]ervilleDbibuubXFHJFDHWIU8205-91-95 14:26:00 Test Item Value Reference Range Interpretation Comments MCHC (test code = MCHC) 35.0 32.0-36.0 [facility] [place]ervilleRowwpqaWCAXJTNEUO9230-35-35 14:26:00 Test Item Value Reference Range Interpretation Comments INR (test code = INR) 0.93 0.85-1.17 [facility]ervilleAfbjcucCTVKIMJTTJ1847-35-72 14:26:00 Test Item Value Reference Range Interpretation Comments PT (test code = PT) 12.4 s 12.0-14.7 [facility]2014-09-22 14:26:00 Test Item Value Reference Range Interpretation Comments BUN (test code = BUN) 8 - [facility]2014-09-22 14:26:00 Test Item Value Reference Range Interpretation Comments Glucose Lvl (test code = Glucose Lvl) 91 70-99 [facility]2014-09-22 14:26:00 Test Item Value Reference Range Interpretation Comments CO2 (test code = CO2) 29 24-32 [facility]2014-09-22 14:26:00 Test Item Value Reference Range Interpretation Comments AGAP (test code = AGAP) 6.7 10.0-20.0 [facility]2014-09-22 14:26:00 Test Item Value Reference Range Interpretation Comments eGFR (test code = eGFR) 86 [facility]2014-09-22 14:26:00 Test Item Value Reference Range Interpretation Comments Creatinine Lvl (test code = Creatinine 0.8 0.5-1.4 Lvl) [facility]2014-09-22 14:26:00 Test Item Value Reference Range Interpretation Comments Chloride Lvl (test code = Chloride Lvl) 104 95-109 [facility]2014-09-22 14:26:00 Test Item Value Reference Range Interpretation Comments Potassium Lvl (test code = Potassium 3.7 3.5-5.1 Lvl) [facility]2014-09-22 14:26:00 Test Item Value Reference Range Interpretation Comments Sodium Lvl (test code = Sodium Lvl) 136 135-145 [facility]2014-09-22 14:26:00 Test Item Value Reference Range Interpretation Comments Calcium Lvl (test code = Calcium Lvl) 9.7 8.5-10.5 [facility] [place]XwnsqquUFPTEBYZNO8376-63-42 14:26:00 Test Item Value Reference Range Interpretation Comments MCV (test code = MCV) 101.6 80.0-98.0 [facility] [place]ervilleTfixaxnQRAZOLPGDS4887-45-40 14:26:00 Test Item Value Reference Range Interpretation Comments MCH (test code = MCH) 35.5 pg 27.0-31.0 [facility] [place]ervilleJxyhsxoNSMEVOWKVS8807-21-07 14:26:00 Test Item Value Reference Range Interpretation Comments Hgb (test code = Hgb) 13.3 12.0-16.0 [facility]ervilleNbfqndoKBTBDXSZOT1655-50-72 14:26:00 Test Item Value Reference Range Interpretation Comments Hct (test code = Hct) 37.9 36.0-48.0 [facility] [place]ervilleSeuzuuoYSVSYXXCQX8882-54-24 14:26:00 Test Item Value Reference Range Interpretation Comments RBC (test code = RBC) 3.73 4.20-5.40 [facility]ervilleTbzhfrcNUYQURQSTB9786-60-31 14:26:00 Test Item Value Reference Range Interpretation Comments WBC (test code = WBC) 6.1 3.7-10.4 [facility] [place]ervilleCiyrlmeMYKBPLJIBE5824-28-71 14:26:00 Test Item Value Reference Range Interpretation Comments MPV (test code = MPV) 8.0 7.4-10.4 [facility]ervilleEwdexnxTIAYPTQCRW4058-10-11 14:26:00 Test Item Value Reference Range Interpretation Comments RDW (test code = RDW) 17.2 11.5-14.5 [facility]ervilleRmfqckhTQHWUZLILZ6071-16-04 14:26:00 Test Item Value Reference Range Interpretation Comments Platelet (test code = Platelet) 223 133-450 [facility]ervilleVxqcoxbZKDEEGPDVQ1076-05-38 14:26:00 Test Item Value Reference Range Interpretation Comments MCHC (test code = MCHC) 35.0 32.0-36.0 [facility] [place]ervilleQtxumajGDDRWGRTLG9496-44-27 14:26:00 Test Item Value Reference Range Interpretation Comments INR (test code = INR) 0.93 0.85-1.17 [facility]ervilleQbqhubhMJVQERVZKW3647-43-05 14:26:00 Test Item Value Reference Range Interpretation Comments PT (test code = PT) 12.4 s 12.0-14.7 [facility]2014-05-07 09:42:00 Test Item Value Reference Range Interpretation Comments eGFR (test code = eGFR) 113 [facility]2014-05-07 09:42:00 Test Item Value Reference Range Interpretation Comments BUN (test code = BUN) 4 7-22 [place] 695474-05-07 09:42:00 Test Item Value Reference Range Interpretation Comments Potassium Lvl (test code = Potassium 3.8 3.5-5.1 Lvl) [facility]2014-05-07 09:42:00 Test Item Value Reference Range Interpretation Comments Creatinine Lvl (test code = Creatinine 0.5 0.5-1.4 Lvl) [place] 695474-05-07 09:42:00 Test Item Value Reference Range Interpretation Comments Glucose Lvl (test code = Glucose Lvl) 94 70-99 [place] 695474-05-07 09:42:00 Test Item Value Reference Range Interpretation Comments Sodium Lvl (test code = Sodium Lvl) 142 135-145 [place] 695474-05-07 09:42:00 Test Item Value Reference Range Interpretation Comments Calcium Lvl (test code = Calcium Lvl) 8.7 8.5-10.5 [place] 695474-05-07 09:42:00 Test Item Value Reference Range Interpretation Comments Chloride Lvl (test code = Chloride Lvl) 105 95-109 [facility]2014-05-07 09:42:00 Test Item Value Reference Range Interpretation Comments CO2 (test code = CO2) 30 24-32 [facility]2014-05-07 09:42:00 Test Item Value Reference Range Interpretation Comments AGAP (test code = AGAP) 10.8 10.0-20.0 [facility]ervilleKkdhtxuELVLXSPBUV9773-50-57 09:42:00 Test Item Value Reference Range Interpretation Comments WBC (test code = WBC) 4.4 3.7-10.4 [facility]ervilleEknfyseDDKZHGFLIU8231-98-82 09:42:00 Test Item Value Reference Range Interpretation Comments RBC (test code = RBC) 3.80 4.20-5.40 [place] [address]-05-07 09:42:00 Test Item Value Reference Range Interpretation Comments MCH (test code = MCH) 31.1 pg 27.0-31.0 [place] 653004-05-07 09:42:00 Test Item Value Reference Range Interpretation Comments Hgb (test code = Hgb) 11.8 12.0-16.0 [facility]ervilleVfzbejhTYJJEDXOGZ1349-15-43 09:42:00 Test Item Value Reference Range Interpretation Comments Hct (test code = Hct) 34.5 36.0-48.0 [facility]ervilleHbqperpAWGMKECDPP6505-56-61 09:42:00 Test Item Value Reference Range Interpretation Comments MCV (test code = MCV) 90.6 81.0-99.0 [facility] [place]ervilleXdrauioCFYOVWPUHF7715-89-35 09:42:00 Test Item Value Reference Range Interpretation Comments RDW (test code = RDW) 16.3 11.5-14.5 [facility]ervilleOnfxvkoWWHEHMBCPI1523-10-79 09:42:00 Test Item Value Reference Range Interpretation Comments MCHC (test code = MCHC) 34.3 32.0-36.0 [facility]ervilleXylgwsnPXMSLBLSPD0717-28-73 09:42:00 Test Item Value Reference Range Interpretation Comments Platelet (test code = Platelet) 167 133-450 [facility]ervilleMfqrlgzQZWIZPLXCH3972-29-35 09:42:00 Test Item Value Reference Range Interpretation Comments MPV (test code = MPV) 7.9 7.4-10.4 [facility]ervilleJknwvisQINPWBFLSE2305-39-42 09:42:00 Test Item Value Reference Range Interpretation Comments Eosinophils (test code = 1.6 See_Comment [A utomated message] The Eosinophils) system which ge nerated this result tra nsmitted reference range : <=4.0. The reference r jamaica was not used to int erpret this result as normal/abnormal . [facility]ervilleMisqjirESNBKVKXIS4895-68-80 09:42:00 Test Item Value Reference Range Interpretation Comments Basophils (test code = 0.2 See_Comment [Aut omated message] The Basophils) system which ge nerated this result tra nsmitted reference range : <=1.0. The reference r jamaica was not used to int erpret this result as normal/abnormal . [facility]QqpdaqcWEBIRDXPJX0604-08-98 09:42:00 Test Item Value Reference Range Interpretation Comments Segs-Bands # (test code = Segs-Bands #) 2.6 1.5-8.1 [facility]ervilleDsrktukBVZWGCGKNR8535-69-44 09:42:00 Test Item Value Reference Range Interpretation Comments Monocytes (test code = Monocytes) 7.4 2.0-12.0 [facility]EwvcvulKUTVUPDQOM1427-99-57 09:42:00 Test Item Value Reference Range Interpretation Comments Lymphocytes # (test code = Lymphocytes 1.3 1.0-5.5 #) [facility]ervilleSezxdyrDMLBUFRYWB7645-55-62 09:42:00 Test Item Value Reference Range Interpretation Comments Monocytes # (test code 0.3 See_Comment [Aut omated message] The = Monocytes #) system which generated this result tra nsmitted reference range : <=0.8. The reference r jamaica was not used to int erpret this result as normal/abnormal . [facility]DgszdfaHGFFWDOXYX7621-49-70 09:42:00 Test Item Value Reference Range Interpretation Comments Eosinophils # (test code 0.1 See_Comment [A utomated message] The = Eosinophils #) system whic h generated this result tra nsmitted reference range : <=0.5. The reference r jamaica was not used to int erpret this result as normal/abnormal . [facility]TkypfdgBCWLKKLCWS0143-92-32 09:42:00 Test Item Value Reference Range Interpretation Comments Basophils # (test code 0.0 See_Comment [Aut omated message] The = Basophils #) system which generated this result tra nsmitted reference range : <=0.2. The reference r jamaica was not used to int erpret this result as normal/abnormal . [facility]LwfbdokORPSHOZFFK7647-08-58 09:42:00 Test Item Value Reference Range Interpretation Comments Lymphocytes (test code = Lymphocytes) 30.7 20.0-40.0 [facility]WbbtfgvLLGSUVDDXM0569-04-96 09:42:00 Test Item Value Reference Range Interpretation Comments Segs (test code = Segs) 60.1 45.0-75.0 [facility]2014-05-07 09:42:00 Test Item Value Reference Range Interpretation Comments Magnesium Lvl (test code = Magnesium 2.0 1.8-2.4 Lvl) [facility]2014-05-07 09:42:00 Test Item Value Reference Range Interpretation Comments eGFR (test code = eGFR) 113 [facility]2014-05-07 09:42:00 Test Item Value Reference Range Interpretation Comments BUN (test code = BUN) 4 7-22 [place] 695474-05-07 09:42:00 Test Item Value Reference Range Interpretation Comments Potassium Lvl (test code = Potassium 3.8 3.5-5.1 Lvl) [facility]2014-05-07 09:42:00 Test Item Value Reference Range Interpretation Comments Creatinine Lvl (test code = Creatinine 0.5 0.5-1.4 Lvl) [place] 695474-05-07 09:42:00 Test Item Value Reference Range Interpretation Comments Glucose Lvl (test code = Glucose Lvl) 94 70-99 [place] 695474-05-07 09:42:00 Test Item Value Reference Range Interpretation Comments Sodium Lvl (test code = Sodium Lvl) 142 135-145 [facility]2014-05-07 09:42:00 Test Item Value Reference Range Interpretation Comments Calcium Lvl (test code = Calcium Lvl) 8.7 8.5-10.5 [place] 695474-05-07 09:42:00 Test Item Value Reference Range Interpretation Comments Chloride Lvl (test code = Chloride Lvl) 105 95-109 [place] 695474-05-07 09:42:00 Test Item Value Reference Range Interpretation Comments CO2 (test code = CO2) 30 24-32 [place] 695474-05-07 09:42:00 Test Item Value Reference Range Interpretation Comments AGAP (test code = AGAP) 10.8 10.0-20.0 [place] 653004-05-07 09:42:00 Test Item Value Reference Range Interpretation Comments WBC (test code = WBC) 4.4 3.7-10.4 [place] [address]-05-07 09:42:00 Test Item Value Reference Range Interpretation Comments RBC (test code = RBC) 3.80 4.20-5.40 [place] [address]-05-07 09:42:00 Test Item Value Reference Range Interpretation Comments MCH (test code = MCH) 31.1 pg 27.0-31.0 [facility]ervilleRherxtzVMENQIUFEX3749-76-03 09:42:00 Test Item Value Reference Range Interpretation Comments Hgb (test code = Hgb) 11.8 12.0-16.0 [place] [address]-05-07 09:42:00 Test Item Value Reference Range Interpretation Comments Hct (test code = Hct) 34.5 36.0-48.0 [facility]FhqeokzLIROGCHFUK4964-34-71 09:42:00 Test Item Value Reference Range Interpretation Comments MCV (test code = MCV) 90.6 81.0-99.0 [facility] [place]ItymzyiGTCWPVDKPY0489-16-39 09:42:00 Test Item Value Reference Range Interpretation Comments RDW (test code = RDW) 16.3 11.5-14.5 [facility] [place]IqwxcdfNDEJHYYJSC6874-37-81 09:42:00 Test Item Value Reference Range Interpretation Comments MCHC (test code = MCHC) 34.3 32.0-36.0 [facility] [place]LnixmwkZJXLNQEVRM2129-42-24 09:42:00 Test Item Value Reference Range Interpretation Comments Platelet (test code = Platelet) 167 133-450 [facility] [place]CxkybcqSYQIEKCDNF5777-31-81 09:42:00 Test Item Value Reference Range Interpretation Comments MPV (test code = MPV) 7.9 7.4-10.4 [facility] [place]FqtqdysAGZPQIUKHK1553-42-45 09:42:00 Test Item Value Reference Range Interpretation Comments Eosinophils (test code = 1.6 See_Comment [A utomated message] The Eosinophils) system which ge nerated this result tra nsmitted reference range : <=4.0. The reference r jamaica was not used to int erpret this result as normal/abnormal . [facility]TqegrwaFNUEYKUPEV6253-52-18 09:42:00 Test Item Value Reference Range Interpretation Comments Basophils (test code = 0.2 See_Comment [Aut omated message] The Basophils) system which ge nerated this result tra nsmitted reference range : <=1.0. The reference r jamaica was not used to int erpret this result as normal/abnormal . [facility] [place]ervilleLjtzsvzBFZDAJQYMD0638-04-84 09:42:00 Test Item Value Reference Range Interpretation Comments Segs-Bands # (test code = Segs-Bands #) 2.6 1.5-8.1 [facility] [place]OvoeftnQNQCTHSAFC6539-11-35 09:42:00 Test Item Value Reference Range Interpretation Comments Monocytes (test code = Monocytes) 7.4 2.0-12.0 [facility] [place]ervilleWcmhjgoWKJKAZHVZY9459-97-93 09:42:00 Test Item Value Reference Range Interpretation Comments Lymphocytes # (test code = Lymphocytes 1.3 1.0-5.5 #) [facility] [place]ZwrceprKVADLDMEYT0383-40-11 09:42:00 Test Item Value Reference Range Interpretation Comments Monocytes # (test code 0.3 See_Comment [Aut omated message] The = Monocytes #) system which generated this result tra nsmitted reference range : <=0.8. The reference r jamaica was not used to int erpret this result as normal/abnormal . [facility]NcmtmbgQBJTAEUHKM9063-59-03 09:42:00 Test Item Value Reference Range Interpretation Comments Eosinophils # (test code 0.1 See_Comment [A utomated message] The = Eosinophils #) system whic h generated this result tra nsmitted reference range : <=0.5. The reference r jamaica was not used to int erpret this result as normal/abnormal . [facility]ervilleLjamguiOWUXVEFZDO7148-05-57 09:42:00 Test Item Value Reference Range Interpretation Comments Basophils # (test code 0.0 See_Comment [Aut omated message] The = Basophils #) system which generated this result tra nsmitted reference range : <=0.2. The reference r jamaica was not used to int erpret this result as normal/abnormal . [facility]ervilleDcviyrdXERFRWIACI4297-56-88 09:42:00 Test Item Value Reference Range Interpretation Comments Lymphocytes (test code = Lymphocytes) 30.7 20.0-40.0 [facility] [place]LpwwqspXFIECEHSPS1679-58-15 09:42:00 Test Item Value Reference Range Interpretation Comments Segs (test code = Segs) 60.1 45.0-75.0 [facility]2014-05-07 09:42:00 Test Item Value Reference Range Interpretation Comments Magnesium Lvl (test code = Magnesium 2.0 1.8-2.4 Lvl) [place] 695474-05-07 09:42:00 Test Item Value Reference Range Interpretation Comments eGFR (test code = eGFR) 113 [facility]2014-05-07 09:42:00 Test Item Value Reference Range Interpretation Comments BUN (test code = BUN) 4 7-22 [place] [address]-05-07 09:42:00 Test Item Value Reference Range Interpretation Comments Potassium Lvl (test code = Potassium 3.8 3.5-5.1 Lvl) [place] 695474-05-07 09:42:00 Test Item Value Reference Range Interpretation Comments Creatinine Lvl (test code = Creatinine 0.5 0.5-1.4 Lvl) [facility]2014-05-07 09:42:00 Test Item Value Reference Range Interpretation Comments Glucose Lvl (test code = Glucose Lvl) 94 70-99 [place] 695474-05-07 09:42:00 Test Item Value Reference Range Interpretation Comments Sodium Lvl (test code = Sodium Lvl) 142 135-145 [place] 695474-05-07 09:42:00 Test Item Value Reference Range Interpretation Comments Calcium Lvl (test code = Calcium Lvl) 8.7 8.5-10.5 [facility]2014-05-07 09:42:00 Test Item Value Reference Range Interpretation Comments Chloride Lvl (test code = Chloride Lvl) 105 95-109 [facility]2014-05-07 09:42:00 Test Item Value Reference Range Interpretation Comments CO2 (test code = CO2) 30 24-32 [place] 695474-05-07 09:42:00 Test Item Value Reference Range Interpretation Comments AGAP (test code = AGAP) 10.8 10.0-20.0 [facility]FoewwqzLNVUSYWRQL3167-51-40 09:42:00 Test Item Value Reference Range Interpretation Comments WBC (test code = WBC) 4.4 3.7-10.4 [facility]ervilleFxmjebwHPXFWXDLFB2405-30-60 09:42:00 Test Item Value Reference Range Interpretation Comments RBC (test code = RBC) 3.80 4.20-5.40 [place] 653004-05-07 09:42:00 Test Item Value Reference Range Interpretation Comments MCH (test code = MCH) 31.1 pg 27.0-31.0 [place] [address]-05-07 09:42:00 Test Item Value Reference Range Interpretation Comments Hgb (test code = Hgb) 11.8 12.0-16.0 [facility]ervilleSouxbpcSRUFXWHWQR6139-18-30 09:42:00 Test Item Value Reference Range Interpretation Comments Hct (test code = Hct) 34.5 36.0-48.0 [place] [address]-05-07 09:42:00 Test Item Value Reference Range Interpretation Comments MCV (test code = MCV) 90.6 81.0-99.0 [facility]QrvgcnyQXPPGCTNST8584-49-74 09:42:00 Test Item Value Reference Range Interpretation Comments RDW (test code = RDW) 16.3 11.5-14.5 [facility] [place]ervilleAridkbdCAXRJWOIQI6283-48-24 09:42:00 Test Item Value Reference Range Interpretation Comments MCHC (test code = MCHC) 34.3 32.0-36.0 [facility] [place]ervilleFitwdtoBZFBZKRPKU1243-19-89 09:42:00 Test Item Value Reference Range Interpretation Comments Platelet (test code = Platelet) 167 133-450 [facility] [place]ervilleKhnujjhABHXZUGXTZ7816-63-75 09:42:00 Test Item Value Reference Range Interpretation Comments MPV (test code = MPV) 7.9 7.4-10.4 [facility]ervilleEdffpxyBSFFTQXFPS4581-45-80 09:42:00 Test Item Value Reference Range Interpretation Comments Eosinophils (test code = 1.6 See_Comment [A utomated message] The Eosinophils) system which ge nerated this result tra nsmitted reference range : <=4.0. The reference r jamaica was not used to int erpret this result as normal/abnormal . [facility]ervilleHrmrerxKDKSFVKAJQ2341-17-35 09:42:00 Test Item Value Reference Range Interpretation Comments Basophils (test code = 0.2 See_Comment [Aut omated message] The Basophils) system which ge nerated this result tra nsmitted reference range : <=1.0. The reference r jamaica was not used to int erpret this result as normal/abnormal . [facility]ervilleHmukxarTEFWBNWJME3795-12-58 09:42:00 Test Item Value Reference Range Interpretation Comments Segs-Bands # (test code = Segs-Bands #) 2.6 1.5-8.1 [facility]ervilleFqsufvqLLYVTJXFJX9410-81-44 09:42:00 Test Item Value Reference Range Interpretation Comments Monocytes (test code = Monocytes) 7.4 2.0-12.0 [facility]ervilleSzykuvvIVJFXVWCSS7252-56-97 09:42:00 Test Item Value Reference Range Interpretation Comments Lymphocytes # (test code = Lymphocytes 1.3 1.0-5.5 #) [facility]ervilleZskpcbvOVKHJLFRRP6783-56-96 09:42:00 Test Item Value Reference Range Interpretation Comments Monocytes # (test code 0.3 See_Comment [Aut omated message] The = Monocytes #) system which generated this result tra nsmitted reference range : <=0.8. The reference r jamaica was not used to int erpret this result as normal/abnormal . [facility]ervilleGnwlfzhAJWDYDDUWO6856-89-93 09:42:00 Test Item Value Reference Range Interpretation Comments Eosinophils # (test code 0.1 See_Comment [A utomated message] The = Eosinophils #) system whic h generated this result tra nsmitted reference range : <=0.5. The reference r jamaica was not used to int erpret this result as normal/abnormal . [facility]ervilleBriysipVVNLVDEWEP9833-87-64 09:42:00 Test Item Value Reference Range Interpretation Comments Basophils # (test code 0.0 See_Comment [Aut omated message] The = Basophils #) system which generated this result tra nsmitted reference range : <=0.2. The reference r jamaica was not used to int erpret this result as normal/abnormal . [facility]ervilleGxtmineNMHOHJWWDQ6980-09-98 09:42:00 Test Item Value Reference Range Interpretation Comments Lymphocytes (test code = Lymphocytes) 30.7 20.0-40.0 [facility]ervilleKjencbpPOHQCLWHSR3315-39-33 09:42:00 Test Item Value Reference Range Interpretation Comments Segs (test code = Segs) 60.1 45.0-75.0 [facility]2014-05-07 09:42:00 Test Item Value Reference Range Interpretation Comments Magnesium Lvl (test code = Magnesium 2.0 1.8-2.4 Lvl) [facility]2014-05-07 09:42:00 Test Item Value Reference Range Interpretation Comments eGFR (test code = eGFR) 113 [facility]2014-05-07 09:42:00 Test Item Value Reference Range Interpretation Comments BUN (test code = BUN) 4 7-22 [facility]2014-05-07 09:42:00 Test Item Value Reference Range Interpretation Comments Potassium Lvl (test code = Potassium 3.8 3.5-5.1 Lvl) [facility]2014-05-07 09:42:00 Test Item Value Reference Range Interpretation Comments Creatinine Lvl (test code = Creatinine 0.5 0.5-1.4 Lvl) [facility]2014-05-07 09:42:00 Test Item Value Reference Range Interpretation Comments Glucose Lvl (test code = Glucose Lvl) 94 70-99 [facility]2014-05-07 09:42:00 Test Item Value Reference Range Interpretation Comments Sodium Lvl (test code = Sodium Lvl) 142 135-145 [place] 695474-05-07 09:42:00 Test Item Value Reference Range Interpretation Comments Calcium Lvl (test code = Calcium Lvl) 8.7 8.5-10.5 [facility]2014-05-07 09:42:00 Test Item Value Reference Range Interpretation Comments Chloride Lvl (test code = Chloride Lvl) 105 95-109 [facility]2014-05-07 09:42:00 Test Item Value Reference Range Interpretation Comments CO2 (test code = CO2) 30 24-32 [place] [address]-05-07 09:42:00 Test Item Value Reference Range Interpretation Comments AGAP (test code = AGAP) 10.8 10.0-20.0 [place] 653004-05-07 09:42:00 Test Item Value Reference Range Interpretation Comments WBC (test code = WBC) 4.4 3.7-10.4 [place] [address]-05-07 09:42:00 Test Item Value Reference Range Interpretation Comments RBC (test code = RBC) 3.80 4.20-5.40 [place] [address]-05-07 09:42:00 Test Item Value Reference Range Interpretation Comments MCH (test code = MCH) 31.1 pg 27.0-31.0 [place] [address]-05-07 09:42:00 Test Item Value Reference Range Interpretation Comments Hgb (test code = Hgb) 11.8 12.0-16.0 [facility]ervilleMuiipapRNJAGUWDZX3816-46-20 09:42:00 Test Item Value Reference Range Interpretation Comments Hct (test code = Hct) 34.5 36.0-48.0 [facility]ervilleJjkeyzqYWUMZNRDBU8081-44-55 09:42:00 Test Item Value Reference Range Interpretation Comments MCV (test code = MCV) 90.6 81.0-99.0 [place] [address]-05-07 09:42:00 Test Item Value Reference Range Interpretation Comments RDW (test code = RDW) 16.3 11.5-14.5 [facility]ervilleLmlrremNFTFYLPABM9410-68-24 09:42:00 Test Item Value Reference Range Interpretation Comments MCHC (test code = MCHC) 34.3 32.0-36.0 [facility]ervilleQmnobhuJNZJMMLUBX9902-05-57 09:42:00 Test Item Value Reference Range Interpretation Comments Platelet (test code = Platelet) 167 133-450 [facility]ervilleVhcexwfOBQMWLZENO0545-16-83 09:42:00 Test Item Value Reference Range Interpretation Comments MPV (test code = MPV) 7.9 7.4-10.4 [facility]ervilleJtihpjpBIKPTQWRCD4386-98-35 09:42:00 Test Item Value Reference Range Interpretation Comments Eosinophils (test code = 1.6 See_Comment [A utomated message] The Eosinophils) system which ge nerated this result tra nsmitted reference range : <=4.0. The reference r jamaica was not used to int erpret this result as normal/abnormal . [facility]ervilleRodmxmrEFBKEQITLS4755-56-53 09:42:00 Test Item Value Reference Range Interpretation Comments Basophils (test code = 0.2 See_Comment [Aut omated message] The Basophils) system which ge nerated this result tra nsmitted reference range : <=1.0. The reference r jamaica was not used to int erpret this result as normal/abnormal . [facility]ervilleZbzzepfJXRLQSYRMU7363-55-10 09:42:00 Test Item Value Reference Range Interpretation Comments Segs-Bands # (test code = Segs-Bands #) 2.6 1.5-8.1 [facility]ervilleHuluvyfXFGYQGBBZB1611-26-12 09:42:00 Test Item Value Reference Range Interpretation Comments Monocytes (test code = Monocytes) 7.4 2.0-12.0 [facility]ervilleBeowqmaITMZPJHQBJ6268-84-01 09:42:00 Test Item Value Reference Range Interpretation Comments Lymphocytes # (test code = Lymphocytes 1.3 1.0-5.5 #) [facility]ervilleJmlbrbsXBTFYRXCXS3442-28-31 09:42:00 Test Item Value Reference Range Interpretation Comments Monocytes # (test code 0.3 See_Comment [Aut omated message] The = Monocytes #) system which generated this result tra nsmitted reference range : <=0.8. The reference r jamaica was not used to int erpret this result as normal/abnormal . [facility]ervilleUsydinfBQFGVXUZYZ8483-38-14 09:42:00 Test Item Value Reference Range Interpretation Comments Eosinophils # (test code 0.1 See_Comment [A utomated message] The = Eosinophils #) system whic h generated this result tra nsmitted reference range : <=0.5. The reference r jamaica was not used to int erpret this result as normal/abnormal . [facility]ervilleFeputezDWNYCYQZWB1009-41-09 09:42:00 Test Item Value Reference Range Interpretation Comments Basophils # (test code 0.0 See_Comment [Aut omated message] The = Basophils #) system which generated this result tra nsmitted reference range : <=0.2. The reference r jamaica was not used to int erpret this result as normal/abnormal . [facility]ervilleSdwxwjqWHVNHXPAUM7457-38-94 09:42:00 Test Item Value Reference Range Interpretation Comments Lymphocytes (test code = Lymphocytes) 30.7 20.0-40.0 [place] [address]-05-07 09:42:00 Test Item Value Reference Range Interpretation Comments Segs (test code = Segs) 60.1 45.0-75.0 [place] 695474-05-07 09:42:00 Test Item Value Reference Range Interpretation Comments Magnesium Lvl (test code = Magnesium 2.0 1.8-2.4 Lvl) [facility]2014-05-07 09:42:00 Test Item Value Reference Range Interpretation Comments eGFR (test code = eGFR) 113 [facility]2014-05-07 09:42:00 Test Item Value Reference Range Interpretation Comments BUN (test code = BUN) 4 7-22 [facility]2014-05-07 09:42:00 Test Item Value Reference Range Interpretation Comments Potassium Lvl (test code = Potassium 3.8 3.5-5.1 Lvl) [facility]2014-05-07 09:42:00 Test Item Value Reference Range Interpretation Comments Creatinine Lvl (test code = Creatinine 0.5 0.5-1.4 Lvl) [facility]2014-05-07 09:42:00 Test Item Value Reference Range Interpretation Comments Glucose Lvl (test code = Glucose Lvl) 94 70-99 [facility]2014-05-07 09:42:00 Test Item Value Reference Range Interpretation Comments Sodium Lvl (test code = Sodium Lvl) 142 135-145 [facility]2014-05-07 09:42:00 Test Item Value Reference Range Interpretation Comments Calcium Lvl (test code = Calcium Lvl) 8.7 8.5-10.5 [facility]2014-05-07 09:42:00 Test Item Value Reference Range Interpretation Comments Chloride Lvl (test code = Chloride Lvl) 105 95-109 [facility]2014-05-07 09:42:00 Test Item Value Reference Range Interpretation Comments CO2 (test code = CO2) 30 24-32 [facility]2014-05-07 09:42:00 Test Item Value Reference Range Interpretation Comments AGAP (test code = AGAP) 10.8 10.0-20.0 [facility]ervilleZhvljgvAMBUHTXAWP3425-40-49 09:42:00 Test Item Value Reference Range Interpretation Comments WBC (test code = WBC) 4.4 3.7-10.4 [facility]ervilleLwxgcdsYMGSEQYVOX3796-93-37 09:42:00 Test Item Value Reference Range Interpretation Comments RBC (test code = RBC) 3.80 4.20-5.40 [facility]ervilleWmgycjwMJPRLVALQL8065-97-31 09:42:00 Test Item Value Reference Range Interpretation Comments MCH (test code = MCH) 31.1 pg 27.0-31.0 [facility]ervilleUhaqvwdQDAWTDLPCH5108-49-62 09:42:00 Test Item Value Reference Range Interpretation Comments Hgb (test code = Hgb) 11.8 12.0-16.0 [facility]ervilleIidsliwHQQOWYDJAT3310-14-31 09:42:00 Test Item Value Reference Range Interpretation Comments Hct (test code = Hct) 34.5 36.0-48.0 [facility]ervilleRnyrjliLMCXHLDYEY4990-79-03 09:42:00 Test Item Value Reference Range Interpretation Comments MCV (test code = MCV) 90.6 81.0-99.0 [facility]ervilleQcorekjVSQMYCCIDY3659-86-10 09:42:00 Test Item Value Reference Range Interpretation Comments RDW (test code = RDW) 16.3 11.5-14.5 [place] [address]-05-07 09:42:00 Test Item Value Reference Range Interpretation Comments MCHC (test code = MCHC) 34.3 32.0-36.0 [facility]ervilleCmikshfRJXIPXIIJB9402-85-65 09:42:00 Test Item Value Reference Range Interpretation Comments Platelet (test code = Platelet) 167 133-450 [facility]ervilleYambcoeQLGWQUOIDU9841-59-36 09:42:00 Test Item Value Reference Range Interpretation Comments MPV (test code = MPV) 7.9 7.4-10.4 [facility]ervilleLqrjrkjGDQEIFXVDI1335-94-29 09:42:00 Test Item Value Reference Range Interpretation Comments Eosinophils (test code = 1.6 See_Comment [A utomated message] The Eosinophils) system which ge nerated this result tra nsmitted reference range : <=4.0. The reference r jamaica was not used to int erpret this result as normal/abnormal . [facility]ervilleReowaxxAAGWHFTJXH5532-11-55 09:42:00 Test Item Value Reference Range Interpretation Comments Basophils (test code = 0.2 See_Comment [Aut omated message] The Basophils) system which ge nerated this result tra nsmitted reference range : <=1.0. The reference r jamaica was not used to int erpret this result as normal/abnormal . [facility]ervilleDvsxdrwNMWUFKKNQY5121-13-59 09:42:00 Test Item Value Reference Range Interpretation Comments Segs-Bands # (test code = Segs-Bands #) 2.6 1.5-8.1 [facility]ervilleXbquphsJQXQEOSNMV0718-91-97 09:42:00 Test Item Value Reference Range Interpretation Comments Monocytes (test code = Monocytes) 7.4 2.0-12.0 [facility]ervilleZyhqkxmONSBEDWAES2769-48-04 09:42:00 Test Item Value Reference Range Interpretation Comments Lymphocytes # (test code = Lymphocytes 1.3 1.0-5.5 #) [facility]ervilleCustpsnHUOZTUBOYK2132-17-02 09:42:00 Test Item Value Reference Range Interpretation Comments Monocytes # (test code 0.3 See_Comment [Aut omated message] The = Monocytes #) system which generated this result tra nsmitted reference range : <=0.8. The reference r jamaica was not used to int erpret this result as normal/abnormal . [facility]ervilleWlcivbgIGNKLTDGPQ0192-21-81 09:42:00 Test Item Value Reference Range Interpretation Comments Eosinophils # (test code 0.1 See_Comment [A utomated message] The = Eosinophils #) system whic h generated this result tra nsmitted reference range : <=0.5. The reference r jamaica was not used to int erpret this result as normal/abnormal . [facility]ervilleJntwaybXVVFHDGUEP6825-75-94 09:42:00 Test Item Value Reference Range Interpretation Comments Basophils # (test code 0.0 See_Comment [Aut omated message] The = Basophils #) system which generated this result tra nsmitted reference range : <=0.2. The reference r jamaica was not used to int erpret this result as normal/abnormal . [facility]HdmgwvrOFXHBUSYBL8178-17-85 09:42:00 Test Item Value Reference Range Interpretation Comments Lymphocytes (test code = Lymphocytes) 30.7 20.0-40.0 [facility]ervilleZcgpfduANSJIPDUFX7804-81-22 09:42:00 Test Item Value Reference Range Interpretation Comments Segs (test code = Segs) 60.1 45.0-75.0 [facility]2014-05-07 09:42:00 Test Item Value Reference Range Interpretation Comments Magnesium Lvl (test code = Magnesium 2.0 1.8-2.4 Lvl) [facility]2014-05-07 09:42:00 Test Item Value Reference Range Interpretation Comments eGFR (test code = eGFR) 113 [facility]2014-05-07 09:42:00 Test Item Value Reference Range Interpretation Comments BUN (test code = BUN) 4 7-22 [place] 695474-05-07 09:42:00 Test Item Value Reference Range Interpretation Comments Potassium Lvl (test code = Potassium 3.8 3.5-5.1 Lvl) [facility]2014-05-07 09:42:00 Test Item Value Reference Range Interpretation Comments Creatinine Lvl (test code = Creatinine 0.5 0.5-1.4 Lvl) [facility]2014-05-07 09:42:00 Test Item Value Reference Range Interpretation Comments Glucose Lvl (test code = Glucose Lvl) 94 70-99 [place] 695474-05-07 09:42:00 Test Item Value Reference Range Interpretation Comments Sodium Lvl (test code = Sodium Lvl) 142 135-145 [facility]2014-05-07 09:42:00 Test Item Value Reference Range Interpretation Comments Calcium Lvl (test code = Calcium Lvl) 8.7 8.5-10.5 [facility]2014-05-07 09:42:00 Test Item Value Reference Range Interpretation Comments Chloride Lvl (test code = Chloride Lvl) 105 95-109 [facility]2014-05-07 09:42:00 Test Item Value Reference Range Interpretation Comments CO2 (test code = CO2) 30 24-32 [facility]2014-05-07 09:42:00 Test Item Value Reference Range Interpretation Comments AGAP (test code = AGAP) 10.8 10.0-20.0 [facility]ervilleKflwhzdJKPZCFQSDZ1559-75-30 09:42:00 Test Item Value Reference Range Interpretation Comments WBC (test code = WBC) 4.4 3.7-10.4 [facility]GypsdnxZTOJMUPOGF2188-59-93 09:42:00 Test Item Value Reference Range Interpretation Comments RBC (test code = RBC) 3.80 4.20-5.40 [facility] [place]ervillePekwukeINGNUKIRAW2433-36-30 09:42:00 Test Item Value Reference Range Interpretation Comments MCH (test code = MCH) 31.1 pg 27.0-31.0 [facility] [place]ervilleOunzhplBRABCDFTGD5491-82-61 09:42:00 Test Item Value Reference Range Interpretation Comments Hgb (test code = Hgb) 11.8 12.0-16.0 [facility] [place]NaexvtoNAVHNHKOZG2702-43-08 09:42:00 Test Item Value Reference Range Interpretation Comments Hct (test code = Hct) 34.5 36.0-48.0 [facility] [place]ervilleGuozaepSMDSDNVKHY6073-37-09 09:42:00 Test Item Value Reference Range Interpretation Comments MCV (test code = MCV) 90.6 81.0-99.0 [facility] [place]ervilleRlporknSXDQYBEDAK5569-39-45 09:42:00 Test Item Value Reference Range Interpretation Comments RDW (test code = RDW) 16.3 11.5-14.5 [facility] [place]ervilleGmvkibuCLMHQCPIWL4665-23-67 09:42:00 Test Item Value Reference Range Interpretation Comments MCHC (test code = MCHC) 34.3 32.0-36.0 [facility] [place]ervilleGkygtutHOIIMIPOOA8221-19-53 09:42:00 Test Item Value Reference Range Interpretation Comments Platelet (test code = Platelet) 167 133-450 [facility] [place]ervilleWkqonrwYBIIFEHAKQ1959-61-59 09:42:00 Test Item Value Reference Range Interpretation Comments MPV (test code = MPV) 7.9 7.4-10.4 [facility] [place]ervilleTwdvebwGFXYIIQWDB9001-59-84 09:42:00 Test Item Value Reference Range Interpretation Comments Eosinophils (test code = 1.6 See_Comment [A utomated message] The Eosinophils) system which ge nerated this result tra nsmitted reference range : <=4.0. The reference r jamaica was not used to int erpret this result as normal/abnormal . [facility]ervilleBcwjiypOGYQWXUATW7560-61-77 09:42:00 Test Item Value Reference Range Interpretation Comments Basophils (test code = 0.2 See_Comment [Aut omated message] The Basophils) system which ge nerated this result tra nsmitted reference range : <=1.0. The reference r jamaica was not used to int erpret this result as normal/abnormal . [facility]ervilleWalraqhNHPHGVEMRL5715-70-19 09:42:00 Test Item Value Reference Range Interpretation Comments Segs-Bands # (test code = Segs-Bands #) 2.6 1.5-8.1 [facility] [place]PtcokvwTCIYVLAUID9956-98-88 09:42:00 Test Item Value Reference Range Interpretation Comments Monocytes (test code = Monocytes) 7.4 2.0-12.0 [facility] [place]ervilleRuzreddGNTFKIXGZD7915-56-87 09:42:00 Test Item Value Reference Range Interpretation Comments Lymphocytes # (test code = Lymphocytes 1.3 1.0-5.5 #) [facility] [place]ervilleMnqwwgsAAJPUMMZMN8555-60-85 09:42:00 Test Item Value Reference Range Interpretation Comments Monocytes # (test code 0.3 See_Comment [Aut omated message] The = Monocytes #) system which generated this result tra nsmitted reference range : <=0.8. The reference r jamaica was not used to int erpret this result as normal/abnormal . [facility]ervilleDmqeimiLSBFQYCUXI0012-49-90 09:42:00 Test Item Value Reference Range Interpretation Comments Eosinophils # (test code 0.1 See_Comment [A utomated message] The = Eosinophils #) system whic h generated this result tra nsmitted reference range : <=0.5. The reference r jamaica was not used to int erpret this result as normal/abnormal . [place] 653004-05-07 09:42:00 Test Item Value Reference Range Interpretation Comments Basophils # (test code 0.0 See_Comment [Aut omated message] The = Basophils #) system which generated this result tra nsmitted reference range : <=0.2. The reference r jamaica was not used to int erpret this result as normal/abnormal . [facility]ervilleNjmjxvjGNIVPQALQN2120-30-56 09:42:00 Test Item Value Reference Range Interpretation Comments Lymphocytes (test code = Lymphocytes) 30.7 20.0-40.0 [facility]ervilleHgqjlwvUCXHELLXUN3577-61-85 09:42:00 Test Item Value Reference Range Interpretation Comments Segs (test code = Segs) 60.1 45.0-75.0 [facility]2014-05-07 09:42:00 Test Item Value Reference Range Interpretation Comments Magnesium Lvl (test code = Magnesium 2.0 1.8-2.4 Lvl) [facility]2014-05-07 09:42:00 Test Item Value Reference Range Interpretation Comments eGFR (test code = eGFR) 113 [facility]2014-05-07 09:42:00 Test Item Value Reference Range Interpretation Comments BUN (test code = BUN) 4 7-22 [place] 695474-05-07 09:42:00 Test Item Value Reference Range Interpretation Comments Potassium Lvl (test code = Potassium 3.8 3.5-5.1 Lvl) [facility]2014-05-07 09:42:00 Test Item Value Reference Range Interpretation Comments Creatinine Lvl (test code = Creatinine 0.5 0.5-1.4 Lvl) [facility]2014-05-07 09:42:00 Test Item Value Reference Range Interpretation Comments Glucose Lvl (test code = Glucose Lvl) 94 70-99 [place] 695474-05-07 09:42:00 Test Item Value Reference Range Interpretation Comments Sodium Lvl (test code = Sodium Lvl) 142 135-145 [facility]2014-05-07 09:42:00 Test Item Value Reference Range Interpretation Comments Calcium Lvl (test code = Calcium Lvl) 8.7 8.5-10.5 [facility]2014-05-07 09:42:00 Test Item Value Reference Range Interpretation Comments Chloride Lvl (test code = Chloride Lvl) 105 95-109 [facility] NZWFY0484-20-81 09:42:00 Test Item Value Reference Range Interpretation Comments CO2 (test code = CO2) 30 24-32 [facility] AWPOA8318-23-12 09:42:00 Test Item Value Reference Range Interpretation Comments AGAP (test code = AGAP) 10.8 10.0-20.0 [facility]WxhzvtiCFYFHTBZPB9156-52-28 09:42:00 Test Item Value Reference Range Interpretation Comments WBC (test code = WBC) 4.4 3.7-10.4 [facility] [place]ervilleMirhpvdSIKCDXVAZI8418-44-71 09:42:00 Test Item Value Reference Range Interpretation Comments RBC (test code = RBC) 3.80 4.20-5.40 [facility] [place]ervilleMwlizrfTSFUEBPTIM8409-97-05 09:42:00 Test Item Value Reference Range Interpretation Comments MCH (test code = MCH) 31.1 pg 27.0-31.0 [facility]ervilleJjehpruQKBFBILGGM9758-19-56 09:42:00 Test Item Value Reference Range Interpretation Comments Hgb (test code = Hgb) 11.8 12.0-16.0 [facility]ervilleYmvxsafOSMGJLNAJX5315-93-89 09:42:00 Test Item Value Reference Range Interpretation Comments Hct (test code = Hct) 34.5 36.0-48.0 [facility]ervilleAejjwymDRTRZVMKMK3371-79-71 09:42:00 Test Item Value Reference Range Interpretation Comments MCV (test code = MCV) 90.6 81.0-99.0 [facility]ervilleQjxtxmtUARYXJMSXB9502-99-97 09:42:00 Test Item Value Reference Range Interpretation Comments RDW (test code = RDW) 16.3 11.5-14.5 [facility]ervilleIwpnpviKBUKQSJINU1524-70-35 09:42:00 Test Item Value Reference Range Interpretation Comments MCHC (test code = MCHC) 34.3 32.0-36.0 [facility]ervilleWweblkgZTQVKZBUUJ3445-82-06 09:42:00 Test Item Value Reference Range Interpretation Comments Platelet (test code = Platelet) 167 133-450 [facility] [place]ervilleKlhioqlQWUGEMGBKE9910-12-56 09:42:00 Test Item Value Reference Range Interpretation Comments MPV (test code = MPV) 7.9 7.4-10.4 [facility]ervilleGuabbmnENKZQUYMZN7783-28-52 09:42:00 Test Item Value Reference Range Interpretation Comments Eosinophils (test code = 1.6 See_Comment [A utomated message] The Eosinophils) system which ge nerated this result tra nsmitted reference range : <=4.0. The reference r jamaica was not used to int erpret this result as normal/abnormal . [facility]ervilleJajpdqlXUXDCZRMCL7426-68-91 09:42:00 Test Item Value Reference Range Interpretation Comments Basophils (test code = 0.2 See_Comment [Aut omated message] The Basophils) system which ge nerated this result tra nsmitted reference range : <=1.0. The reference r jamaica was not used to int erpret this result as normal/abnormal . [facility]ervilleYctgfaaNDIGAAIOOG4821-84-02 09:42:00 Test Item Value Reference Range Interpretation Comments Segs-Bands # (test code = Segs-Bands #) 2.6 1.5-8.1 [facility]ervilleDbkwehcKNUCFEOJOA1089-93-48 09:42:00 Test Item Value Reference Range Interpretation Comments Monocytes (test code = Monocytes) 7.4 2.0-12.0 [place] 653004-05-07 09:42:00 Test Item Value Reference Range Interpretation Comments Lymphocytes # (test code = Lymphocytes 1.3 1.0-5.5 #) [facility]ervillePghwzwmXUMNCUCVTU8626-41-20 09:42:00 Test Item Value Reference Range Interpretation Comments Monocytes # (test code 0.3 See_Comment [Aut omated message] The = Monocytes #) system which generated this result tra nsmitted reference range : <=0.8. The reference r jamaica was not used to int erpret this result as normal/abnormal . [facility]ervilleFwafphvUMMETDYPLD7512-83-60 09:42:00 Test Item Value Reference Range Interpretation Comments Eosinophils # (test code 0.1 See_Comment [A utomated message] The = Eosinophils #) system whic h generated this result tra nsmitted reference range : <=0.5. The reference r jamaica was not used to int erpret this result as normal/abnormal . [facility]ervilleCmaxazdXJELQYREIF1214-72-54 09:42:00 Test Item Value Reference Range Interpretation Comments Basophils # (test code 0.0 See_Comment [Aut omated message] The = Basophils #) system which generated this result tra nsmitted reference range : <=0.2. The reference r jamaica was not used to int erpret this result as normal/abnormal . [facility]ervilleXkutufcMRNKDGVGAS0400-90-15 09:42:00 Test Item Value Reference Range Interpretation Comments Lymphocytes (test code = Lymphocytes) 30.7 20.0-40.0 [facility]ervilleFjhlypvSNHRNOWTTI2123-24-11 09:42:00 Test Item Value Reference Range Interpretation Comments Segs (test code = Segs) 60.1 45.0-75.0 [facility]2014-05-07 09:42:00 Test Item Value Reference Range Interpretation Comments Magnesium Lvl (test code = Magnesium 2.0 1.8-2.4 Lvl) [facility]2014-05-07 09:42:00 Test Item Value Reference Range Interpretation Comments eGFR (test code = eGFR) 113 [facility]2014-05-07 09:42:00 Test Item Value Reference Range Interpretation Comments BUN (test code = BUN) 4 7-22 [place] 695474-05-07 09:42:00 Test Item Value Reference Range Interpretation Comments Potassium Lvl (test code = Potassium 3.8 3.5-5.1 Lvl) [facility]2014-05-07 09:42:00 Test Item Value Reference Range Interpretation Comments Creatinine Lvl (test code = Creatinine 0.5 0.5-1.4 Lvl) [facility]2014-05-07 09:42:00 Test Item Value Reference Range Interpretation Comments Glucose Lvl (test code = Glucose Lvl) 94 70-99 [facility]2014-05-07 09:42:00 Test Item Value Reference Range Interpretation Comments Sodium Lvl (test code = Sodium Lvl) 142 135-145 [facility]2014-05-07 09:42:00 Test Item Value Reference Range Interpretation Comments Calcium Lvl (test code = Calcium Lvl) 8.7 8.5-10.5 [facility]2014-05-07 09:42:00 Test Item Value Reference Range Interpretation Comments Chloride Lvl (test code = Chloride Lvl) 105 95-109 [place] 695474-05-07 09:42:00 Test Item Value Reference Range Interpretation Comments CO2 (test code = CO2) 30 24-32 [facility]2014-05-07 09:42:00 Test Item Value Reference Range Interpretation Comments AGAP (test code = AGAP) 10.8 10.0-20.0 [facility]ervilleRsaojznVUIFOKKTUV3741-00-97 09:42:00 Test Item Value Reference Range Interpretation Comments WBC (test code = WBC) 4.4 3.7-10.4 [facility]ervilleVbeaipxYZXTZMBUDE9018-92-67 09:42:00 Test Item Value Reference Range Interpretation Comments RBC (test code = RBC) 3.80 4.20-5.40 [facility]ervilleQyjfgkgDUWCGHWHJI0525-33-07 09:42:00 Test Item Value Reference Range Interpretation Comments MCH (test code = MCH) 31.1 pg 27.0-31.0 [facility]ervilleHknjvxvNDEKDGSLBE6623-98-81 09:42:00 Test Item Value Reference Range Interpretation Comments Hgb (test code = Hgb) 11.8 12.0-16.0 [facility]ervilleKmowuluMYHMNNHYSM5149-14-42 09:42:00 Test Item Value Reference Range Interpretation Comments Hct (test code = Hct) 34.5 36.0-48.0 [facility]ervilleLzyrqyhBTKEAFSFWI6871-41-40 09:42:00 Test Item Value Reference Range Interpretation Comments MCV (test code = MCV) 90.6 81.0-99.0 [facility]ervilleZgklxguPUDROYYGXX4835-64-52 09:42:00 Test Item Value Reference Range Interpretation Comments RDW (test code = RDW) 16.3 11.5-14.5 [facility]ervilleJkkeiddMPIBLZDZVM4094-25-67 09:42:00 Test Item Value Reference Range Interpretation Comments MCHC (test code = MCHC) 34.3 32.0-36.0 [facility]ervilleJaqygzeAJCRICRKOA1689-69-61 09:42:00 Test Item Value Reference Range Interpretation Comments Platelet (test code = Platelet) 167 133-450 [facility]ervilleAbhhhhsGHTSCHDCCN6110-84-83 09:42:00 Test Item Value Reference Range Interpretation Comments MPV (test code = MPV) 7.9 7.4-10.4 [facility]ervilleFrwxvhzTUITOBZSZE3450-67-90 09:42:00 Test Item Value Reference Range Interpretation Comments Eosinophils (test code = 1.6 See_Comment [A utomated message] The Eosinophils) system which ge nerated this result tra nsmitted reference range : <=4.0. The reference r jamaica was not used to int erpret this result as normal/abnormal . [facility]ervilleZrsjttqPDYCFNHJEO3070-14-06 09:42:00 Test Item Value Reference Range Interpretation Comments Basophils (test code = 0.2 See_Comment [Aut omated message] The Basophils) system which ge nerated this result tra nsmitted reference range : <=1.0. The reference r jamaica was not used to int erpret this result as normal/abnormal . [facility]ervilleFulmulaDPOFPKOHZN4781-04-04 09:42:00 Test Item Value Reference Range Interpretation Comments Segs-Bands # (test code = Segs-Bands #) 2.6 1.5-8.1 [facility]ervilleYtaihynWYSPFALXQD3451-80-26 09:42:00 Test Item Value Reference Range Interpretation Comments Monocytes (test code = Monocytes) 7.4 2.0-12.0 [facility]ervilleQdywoioIHAZLOPOYX8138-44-88 09:42:00 Test Item Value Reference Range Interpretation Comments Lymphocytes # (test code = Lymphocytes 1.3 1.0-5.5 #) [facility]ervilleZjxcmobUNZRFYFAGY6757-32-88 09:42:00 Test Item Value Reference Range Interpretation Comments Monocytes # (test code 0.3 See_Comment [Aut omated message] The = Monocytes #) system which generated this result tra nsmitted reference range : <=0.8. The reference r jamaica was not used to int erpret this result as normal/abnormal . [facility]ervilleOzwtufwZGTDRDNWGA9873-46-85 09:42:00 Test Item Value Reference Range Interpretation Comments Eosinophils # (test code 0.1 See_Comment [A utomated message] The = Eosinophils #) system whic h generated this result tra nsmitted reference range : <=0.5. The reference r jamaica was not used to int erpret this result as normal/abnormal . [facility]ervilleJivggaiLXXYNLBCAE6645-15-52 09:42:00 Test Item Value Reference Range Interpretation Comments Basophils # (test code 0.0 See_Comment [Aut omated message] The = Basophils #) system which generated this result tra nsmitted reference range : <=0.2. The reference r jamaica was not used to int erpret this result as normal/abnormal . [facility]ervilleQqfujpzOAEEKJMRTB8456-75-51 09:42:00 Test Item Value Reference Range Interpretation Comments Lymphocytes (test code = Lymphocytes) 30.7 20.0-40.0 [facility]ervilleKnqyovjTZLDPPDWZS2472-09-20 09:42:00 Test Item Value Reference Range Interpretation Comments Segs (test code = Segs) 60.1 45.0-75.0 [facility]2014-05-07 09:42:00 Test Item Value Reference Range Interpretation Comments Magnesium Lvl (test code = Magnesium 2.0 1.8-2.4 Lvl) [facility]2014-05-07 09:42:00 Test Item Value Reference Range Interpretation Comments eGFR (test code = eGFR) 113 [facility]2014-05-07 09:42:00 Test Item Value Reference Range Interpretation Comments BUN (test code = BUN) 4 7-22 [facility]2014-05-07 09:42:00 Test Item Value Reference Range Interpretation Comments Potassium Lvl (test code = Potassium 3.8 3.5-5.1 Lvl) [facility]2014-05-07 09:42:00 Test Item Value Reference Range Interpretation Comments Creatinine Lvl (test code = Creatinine 0.5 0.5-1.4 Lvl) [facility]2014-05-07 09:42:00 Test Item Value Reference Range Interpretation Comments Glucose Lvl (test code = Glucose Lvl) 94 70-99 [facility]2014-05-07 09:42:00 Test Item Value Reference Range Interpretation Comments Sodium Lvl (test code = Sodium Lvl) 142 135-145 [facility]2014-05-07 09:42:00 Test Item Value Reference Range Interpretation Comments Calcium Lvl (test code = Calcium Lvl) 8.7 8.5-10.5 [facility]2014-05-07 09:42:00 Test Item Value Reference Range Interpretation Comments Chloride Lvl (test code = Chloride Lvl) 105 95-109 [facility]2014-05-07 09:42:00 Test Item Value Reference Range Interpretation Comments CO2 (test code = CO2) 30 24-32 [facility]2014-05-07 09:42:00 Test Item Value Reference Range Interpretation Comments AGAP (test code = AGAP) 10.8 10.0-20.0 [facility]ervilleTjikpbeYVAIAXUHRG3771-78-68 09:42:00 Test Item Value Reference Range Interpretation Comments WBC (test code = WBC) 4.4 3.7-10.4 [facility]ervilleDeargndLFWXTMZLAU7645-44-62 09:42:00 Test Item Value Reference Range Interpretation Comments RBC (test code = RBC) 3.80 4.20-5.40 [facility]ervilleVsrtkhwWUYOHDMJLU6768-05-07 09:42:00 Test Item Value Reference Range Interpretation Comments MCH (test code = MCH) 31.1 pg 27.0-31.0 [facility]ervilleOzoovduDMDAFTJPEO8371-39-98 09:42:00 Test Item Value Reference Range Interpretation Comments Hgb (test code = Hgb) 11.8 12.0-16.0 [facility]ervilleBqfgvmqSKYXLDEESP2389-47-22 09:42:00 Test Item Value Reference Range Interpretation Comments Hct (test code = Hct) 34.5 36.0-48.0 [facility]ervilleGwlrcnvKFOYVNZZET6833-27-11 09:42:00 Test Item Value Reference Range Interpretation Comments MCV (test code = MCV) 90.6 81.0-99.0 [facility]ervilleYawcxfnSDXXSTFIGG7681-88-04 09:42:00 Test Item Value Reference Range Interpretation Comments RDW (test code = RDW) 16.3 11.5-14.5 [facility]ervilleUbsocvuCTNGAALNSS1879-77-62 09:42:00 Test Item Value Reference Range Interpretation Comments MCHC (test code = MCHC) 34.3 32.0-36.0 [facility]ervilleZxcmxwvNHIYSHVHMB7871-66-01 09:42:00 Test Item Value Reference Range Interpretation Comments Platelet (test code = Platelet) 167 133-450 [facility]ervilleQzobsqvMFSRIZTKVD7625-56-24 09:42:00 Test Item Value Reference Range Interpretation Comments MPV (test code = MPV) 7.9 7.4-10.4 [facility]ervilleBzvrbmkBXHMRNWWKO3655-75-61 09:42:00 Test Item Value Reference Range Interpretation Comments Eosinophils (test code = 1.6 See_Comment [A utomated message] The Eosinophils) system which ge nerated this result tra nsmitted reference range : <=4.0. The reference r jamaica was not used to int erpret this result as normal/abnormal . [facility]ervilleNvgfxryYNEEWYYEBD0619-18-45 09:42:00 Test Item Value Reference Range Interpretation Comments Basophils (test code = 0.2 See_Comment [Aut omated message] The Basophils) system which ge nerated this result tra nsmitted reference range : <=1.0. The reference r jamaica was not used to int erpret this result as normal/abnormal . [facility]ervilleTvagnebMYLFLQEVFZ3379-40-56 09:42:00 Test Item Value Reference Range Interpretation Comments Segs-Bands # (test code = Segs-Bands #) 2.6 1.5-8.1 [facility]ervilleQndnhmoPFEGVMLNXJ9668-51-95 09:42:00 Test Item Value Reference Range Interpretation Comments Monocytes (test code = Monocytes) 7.4 2.0-12.0 [facility]ervilleFpexetmBUYGQWBIED1822-59-00 09:42:00 Test Item Value Reference Range Interpretation Comments Lymphocytes # (test code = Lymphocytes 1.3 1.0-5.5 #) [facility]ervilleGvkofsmEMGVUHQDWM6658-46-06 09:42:00 Test Item Value Reference Range Interpretation Comments Monocytes # (test code 0.3 See_Comment [Aut omated message] The = Monocytes #) system which generated this result tra nsmitted reference range : <=0.8. The reference r jamaica was not used to int erpret this result as normal/abnormal . [facility]PjyxobnAGNRWFUGQL9053-64-71 09:42:00 Test Item Value Reference Range Interpretation Comments Eosinophils # (test code 0.1 See_Comment [A utomated message] The = Eosinophils #) system wh h generated this result tra nsmitted reference range : <=0.5. The reference r jamaica was not used to int erpret this result as normal/abnormal . [facility]ervilleRxstjhkGITEFYLAPH0124-74-52 09:42:00 Test Item Value Reference Range Interpretation Comments Basophils # (test code 0.0 See_Comment [Aut omated message] The = Basophils #) system which generated this result tra nsmitted reference range : <=0.2. The reference r jamaica was not used to int erpret this result as normal/abnormal . [facility]ervilleHbsbaukFJWBXQKEZE2390-95-08 09:42:00 Test Item Value Reference Range Interpretation Comments Lymphocytes (test code = Lymphocytes) 30.7 20.0-40.0 [facility]ervilleNkefntgCLFUDZRQPH9948-53-53 09:42:00 Test Item Value Reference Range Interpretation Comments Segs (test code = Segs) 60.1 45.0-75.0 [facility]2014-05-07 09:42:00 Test Item Value Reference Range Interpretation Comments Magnesium Lvl (test code = Magnesium 2.0 1.8-2.4 Lvl) [place] 695474-05-07 09:42:00 Test Item Value Reference Range Interpretation Comments eGFR (test code = eGFR) 113 [facility]2014-05-07 09:42:00 Test Item Value Reference Range Interpretation Comments BUN (test code = BUN) 4 7-22 [place] 695474-05-07 09:42:00 Test Item Value Reference Range Interpretation Comments Potassium Lvl (test code = Potassium 3.8 3.5-5.1 Lvl) [facility]2014-05-07 09:42:00 Test Item Value Reference Range Interpretation Comments Creatinine Lvl (test code = Creatinine 0.5 0.5-1.4 Lvl) [facility]2014-05-07 09:42:00 Test Item Value Reference Range Interpretation Comments Glucose Lvl (test code = Glucose Lvl) 94 70-99 [facility]2014-05-07 09:42:00 Test Item Value Reference Range Interpretation Comments Sodium Lvl (test code = Sodium Lvl) 142 135-145 [facility]2014-05-07 09:42:00 Test Item Value Reference Range Interpretation Comments Calcium Lvl (test code = Calcium Lvl) 8.7 8.5-10.5 [facility]2014-05-07 09:42:00 Test Item Value Reference Range Interpretation Comments Chloride Lvl (test code = Chloride Lvl) 105 95-109 [facility]2014-05-07 09:42:00 Test Item Value Reference Range Interpretation Comments CO2 (test code = CO2) 30 24-32 [facility]2014-05-07 09:42:00 Test Item Value Reference Range Interpretation Comments AGAP (test code = AGAP) 10.8 10.0-20.0 [facility]ThzkkrtSJTGVNFMAA2192-62-40 09:42:00 Test Item Value Reference Range Interpretation Comments WBC (test code = WBC) 4.4 3.7-10.4 [place] 653004-05-07 09:42:00 Test Item Value Reference Range Interpretation Comments RBC (test code = RBC) 3.80 4.20-5.40 [facility] [place]NklskpiZTOFCZZYUL9911-25-91 09:42:00 Test Item Value Reference Range Interpretation Comments MCH (test code = MCH) 31.1 pg 27.0-31.0 [facility] [place]JkyhvevBIIDCLWXXJ7442-83-18 09:42:00 Test Item Value Reference Range Interpretation Comments Hgb (test code = Hgb) 11.8 12.0-16.0 [facility] [place]LwuajtiFZIPBGQGKA9783-65-31 09:42:00 Test Item Value Reference Range Interpretation Comments Hct (test code = Hct) 34.5 36.0-48.0 [facility] [place]CnqpfpdPWIRIQDLAD0754-24-89 09:42:00 Test Item Value Reference Range Interpretation Comments MCV (test code = MCV) 90.6 81.0-99.0 [facility] [place]ervilleZkurdrjLUVZVAOZTY4794-75-55 09:42:00 Test Item Value Reference Range Interpretation Comments RDW (test code = RDW) 16.3 11.5-14.5 [place] 653004-05-07 09:42:00 Test Item Value Reference Range Interpretation Comments MCHC (test code = MCHC) 34.3 32.0-36.0 [facility] [place]ervilleSwznmqgKAVBLJFFEL3468-51-99 09:42:00 Test Item Value Reference Range Interpretation Comments Platelet (test code = Platelet) 167 133-450 [facility] [place]ervilleBlxmsdiGSTPENZVNE0814-66-79 09:42:00 Test Item Value Reference Range Interpretation Comments MPV (test code = MPV) 7.9 7.4-10.4 [facility] [place]ervilleSwcgjarVEPLYXAICA1693-43-15 09:42:00 Test Item Value Reference Range Interpretation Comments Eosinophils (test code = 1.6 See_Comment [A utomated message] The Eosinophils) system which ge nerated this result tra nsmitted reference range : <=4.0. The reference r jamaica was not used to int erpret this result as normal/abnormal . [facility] [place]ervilleRpuwertVOOZCFKXFF1333-45-52 09:42:00 Test Item Value Reference Range Interpretation Comments Basophils (test code = 0.2 See_Comment [Aut omated message] The Basophils) system which ge nerated this result tra nsmitted reference range : <=1.0. The reference r jamaica was not used to int erpret this result as normal/abnormal . [facility] [place]QogpawxBLWFLCTJLD9383-57-20 09:42:00 Test Item Value Reference Range Interpretation Comments Segs-Bands # (test code = Segs-Bands #) 2.6 1.5-8.1 [facility] [place]QllpfehKGYLRNJBWF3698-38-49 09:42:00 Test Item Value Reference Range Interpretation Comments Monocytes (test code = Monocytes) 7.4 2.0-12.0 [facility] [place]TqkprcdFRDHRVLTSI7970-95-42 09:42:00 Test Item Value Reference Range Interpretation Comments Lymphocytes # (test code = Lymphocytes 1.3 1.0-5.5 #) [facility] [place]ervilleAabchgpKIIETJRASP0118-79-92 09:42:00 Test Item Value Reference Range Interpretation Comments Monocytes # (test code 0.3 See_Comment [Aut omated message] The = Monocytes #) system which generated this result tra nsmitted reference range : <=0.8. The reference r jamaica was not used to int erpret this result as normal/abnormal . [facility] [place]ervilleMlckzkrMGQBFEXQJV9309-00-59 09:42:00 Test Item Value Reference Range Interpretation Comments Eosinophils # (test code 0.1 See_Comment [A utomated message] The = Eosinophils #) system whic h generated this result tra nsmitted reference range : <=0.5. The reference r jamaica was not used to int erpret this result as normal/abnormal . [facility] [place]ervilleZohqrpaXOXVTXRNCY0349-83-91 09:42:00 Test Item Value Reference Range Interpretation Comments Basophils # (test code 0.0 See_Comment [Aut omated message] The = Basophils #) system which generated this result tra nsmitted reference range : <=0.2. The reference r jamaica was not used to int erpret this result as normal/abnormal . [facility] [place]AedmwrsGXFRSESVGO5165-01-02 09:42:00 Test Item Value Reference Range Interpretation Comments Lymphocytes (test code = Lymphocytes) 30.7 20.0-40.0 [facility] [place]AqtnytoGGQFENJTDE7054-25-92 09:42:00 Test Item Value Reference Range Interpretation Comments Segs (test code = Segs) 60.1 45.0-75.0 [facility]2014-05-07 09:42:00 Test Item Value Reference Range Interpretation Comments Magnesium Lvl (test code = Magnesium 2.0 1.8-2.4 Lvl) [place] 695474-05-07 09:42:00 Test Item Value Reference Range Interpretation Comments eGFR (test code = eGFR) 113 [facility]2014-05-07 09:42:00 Test Item Value Reference Range Interpretation Comments BUN (test code = BUN) 4 7-22 [place] [address]-05-07 09:42:00 Test Item Value Reference Range Interpretation Comments Potassium Lvl (test code = Potassium 3.8 3.5-5.1 Lvl) [place] [address]-05-07 09:42:00 Test Item Value Reference Range Interpretation Comments Creatinine Lvl (test code = Creatinine 0.5 0.5-1.4 Lvl) [facility]2014-05-07 09:42:00 Test Item Value Reference Range Interpretation Comments Glucose Lvl (test code = Glucose Lvl) 94 70-99 [place] 695474-05-07 09:42:00 Test Item Value Reference Range Interpretation Comments Sodium Lvl (test code = Sodium Lvl) 142 135-145 [facility]2014-05-07 09:42:00 Test Item Value Reference Range Interpretation Comments Calcium Lvl (test code = Calcium Lvl) 8.7 8.5-10.5 [facility]2014-05-07 09:42:00 Test Item Value Reference Range Interpretation Comments Chloride Lvl (test code = Chloride Lvl) 105 95-109 [facility]2014-05-07 09:42:00 Test Item Value Reference Range Interpretation Comments CO2 (test code = CO2) 30 24-32 [place] 695474-05-07 09:42:00 Test Item Value Reference Range Interpretation Comments AGAP (test code = AGAP) 10.8 10.0-20.0 [place] 653004-05-07 09:42:00 Test Item Value Reference Range Interpretation Comments WBC (test code = WBC) 4.4 3.7-10.4 [place] [address]-05-07 09:42:00 Test Item Value Reference Range Interpretation Comments RBC (test code = RBC) 3.80 4.20-5.40 [place] [address]-05-07 09:42:00 Test Item Value Reference Range Interpretation Comments MCH (test code = MCH) 31.1 pg 27.0-31.0 [facility] [place]RfpvydrPTEPSYLNVA0254-39-99 09:42:00 Test Item Value Reference Range Interpretation Comments Hgb (test code = Hgb) 11.8 12.0-16.0 [facility] [place]ervilleFtikbifZLLIDSMTFN5204-68-92 09:42:00 Test Item Value Reference Range Interpretation Comments Hct (test code = Hct) 34.5 36.0-48.0 [facility] [place]JsllfbfXVVMFAWSIU2111-06-46 09:42:00 Test Item Value Reference Range Interpretation Comments MCV (test code = MCV) 90.6 81.0-99.0 [facility] [place]ervilleFkbvaahAZXOAPSHKK4982-50-26 09:42:00 Test Item Value Reference Range Interpretation Comments RDW (test code = RDW) 16.3 11.5-14.5 [facility] [place]ervilleHfcfpmiEBPDALUHOC8409-58-41 09:42:00 Test Item Value Reference Range Interpretation Comments MCHC (test code = MCHC) 34.3 32.0-36.0 [facility] [place]ervilleGashmabEFZSCYZMHH8229-77-33 09:42:00 Test Item Value Reference Range Interpretation Comments Platelet (test code = Platelet) 167 133-450 [facility] [place]ervilleUjrflebCBTTVVZGME8407-17-31 09:42:00 Test Item Value Reference Range Interpretation Comments MPV (test code = MPV) 7.9 7.4-10.4 [facility] [place]ervillePluemznQYZJJPUIUC9953-89-21 09:42:00 Test Item Value Reference Range Interpretation Comments Eosinophils (test code = 1.6 See_Comment [A utomated message] The Eosinophils) system which ge nerated this result tra nsmitted reference range : <=4.0. The reference r jamaica was not used to int erpret this result as normal/abnormal . [facility]ervilleMikrfqqEDKBOUWBMY4239-22-83 09:42:00 Test Item Value Reference Range Interpretation Comments Basophils (test code = 0.2 See_Comment [Aut omated message] The Basophils) system which ge nerated this result tra nsmitted reference range : <=1.0. The reference r jamaica was not used to int erpret this result as normal/abnormal . [facility] [place]ervilleIftpruaYYAVUZGNOI9876-51-07 09:42:00 Test Item Value Reference Range Interpretation Comments Segs-Bands # (test code = Segs-Bands #) 2.6 1.5-8.1 [facility] [place]ervilleDjmdllaBXCCAOUDQO4670-03-24 09:42:00 Test Item Value Reference Range Interpretation Comments Monocytes (test code = Monocytes) 7.4 2.0-12.0 [place] [address]-05-07 09:42:00 Test Item Value Reference Range Interpretation Comments Lymphocytes # (test code = Lymphocytes 1.3 1.0-5.5 #) [facility]ervilleHlbsgsqQADRNDXMTC4409-33-38 09:42:00 Test Item Value Reference Range Interpretation Comments Monocytes # (test code 0.3 See_Comment [Aut omated message] The = Monocytes #) system which generated this result tra nsmitted reference range : <=0.8. The reference r jamaica was not used to int erpret this result as normal/abnormal . [facility] [place]ervilleDsuyxkdZYANGTTAAH5044-17-73 09:42:00 Test Item Value Reference Range Interpretation Comments Eosinophils # (test code 0.1 See_Comment [A utomated message] The = Eosinophils #) system whic h generated this result tra nsmitted reference range : <=0.5. The reference r jamaica was not used to int erpret this result as normal/abnormal . [facility]ervilleJydgbrnCSZIIALPPC2037-55-09 09:42:00 Test Item Value Reference Range Interpretation Comments Basophils # (test code 0.0 See_Comment [Aut omated message] The = Basophils #) system which generated this result tra nsmitted reference range : <=0.2. The reference r jamaica was not used to int erpret this result as normal/abnormal . [facility] [place]ervilleTuspkynVGLSBVWRBZ2836-58-81 09:42:00 Test Item Value Reference Range Interpretation Comments Lymphocytes (test code = Lymphocytes) 30.7 20.0-40.0 [facility] [place]ervilleMyzgklfYEUFQZDAJU0303-87-84 09:42:00 Test Item Value Reference Range Interpretation Comments Segs (test code = Segs) 60.1 45.0-75.0 [facility]2014-05-07 09:42:00 Test Item Value Reference Range Interpretation Comments Magnesium Lvl (test code = Magnesium 2.0 1.8-2.4 Lvl) [facility]2014-05-07 09:42:00 Test Item Value Reference Range Interpretation Comments eGFR (test code = eGFR) 113 [facility]2014-05-07 09:42:00 Test Item Value Reference Range Interpretation Comments BUN (test code = BUN) 4 7-22 [facility]2014-05-07 09:42:00 Test Item Value Reference Range Interpretation Comments Potassium Lvl (test code = Potassium 3.8 3.5-5.1 Lvl) [facility]2014-05-07 09:42:00 Test Item Value Reference Range Interpretation Comments Creatinine Lvl (test code = Creatinine 0.5 0.5-1.4 Lvl) [facility]2014-05-07 09:42:00 Test Item Value Reference Range Interpretation Comments Glucose Lvl (test code = Glucose Lvl) 94 70-99 [facility]2014-05-07 09:42:00 Test Item Value Reference Range Interpretation Comments Sodium Lvl (test code = Sodium Lvl) 142 135-145 [place] 695474-05-07 09:42:00 Test Item Value Reference Range Interpretation Comments Calcium Lvl (test code = Calcium Lvl) 8.7 8.5-10.5 [facility]2014-05-07 09:42:00 Test Item Value Reference Range Interpretation Comments Chloride Lvl (test code = Chloride Lvl) 105 95-109 [facility]2014-05-07 09:42:00 Test Item Value Reference Range Interpretation Comments CO2 (test code = CO2) 30 24-32 [facility]2014-05-07 09:42:00 Test Item Value Reference Range Interpretation Comments AGAP (test code = AGAP) 10.8 10.0-20.0 [facility] [place]ervilleVfxdbznTTZWXVMOOU2850-07-15 09:42:00 Test Item Value Reference Range Interpretation Comments WBC (test code = WBC) 4.4 3.7-10.4 [facility] [place]ervilleLkahwbnYJMTKRTWSI1138-79-98 09:42:00 Test Item Value Reference Range Interpretation Comments RBC (test code = RBC) 3.80 4.20-5.40 [place] 653004-05-07 09:42:00 Test Item Value Reference Range Interpretation Comments MCH (test code = MCH) 31.1 pg 27.0-31.0 [facility] [place]ervilleTideerqXKAIRIRECE6926-80-26 09:42:00 Test Item Value Reference Range Interpretation Comments Hgb (test code = Hgb) 11.8 12.0-16.0 [facility] [place]ervilleThukykwGRVYEXLLOV1947-66-61 09:42:00 Test Item Value Reference Range Interpretation Comments Hct (test code = Hct) 34.5 36.0-48.0 [facility] [place]ervilleTtogsicODERNUXMDL6957-61-19 09:42:00 Test Item Value Reference Range Interpretation Comments MCV (test code = MCV) 90.6 81.0-99.0 [facility] [place]ervilleYumcjlqVGXTDSLBCP8935-40-63 09:42:00 Test Item Value Reference Range Interpretation Comments RDW (test code = RDW) 16.3 11.5-14.5 [facility] [place]ervilleVdoslviDJWPTOPEMJ8929-71-45 09:42:00 Test Item Value Reference Range Interpretation Comments MCHC (test code = MCHC) 34.3 32.0-36.0 [facility] [place]ervilleYevqcxyLMKWAIDTIB9396-64-24 09:42:00 Test Item Value Reference Range Interpretation Comments Platelet (test code = Platelet) 167 133-450 [facility] [place]ervilleOjnadtaSYXOBBGJNJ9089-29-02 09:42:00 Test Item Value Reference Range Interpretation Comments MPV (test code = MPV) 7.9 7.4-10.4 [facility] [place]ervilleSojfxsnIIIJHXVUGD5589-15-02 09:42:00 Test Item Value Reference Range Interpretation Comments Eosinophils (test code = 1.6 See_Comment [A utomated message] The Eosinophils) system which ge nerated this result tra nsmitted reference range : <=4.0. The reference r jamaica was not used to int erpret this result as normal/abnormal . [facility]ervilleDukxkedIVJSOTUTQU3862-85-66 09:42:00 Test Item Value Reference Range Interpretation Comments Basophils (test code = 0.2 See_Comment [Aut omated message] The Basophils) system which ge nerated this result tra nsmitted reference range : <=1.0. The reference r jmaaica was not used to int erpret this result as normal/abnormal . [facility] [place]ervilleUopmjqoNGYEUTQNXK5288-26-51 09:42:00 Test Item Value Reference Range Interpretation Comments Segs-Bands # (test code = Segs-Bands #) 2.6 1.5-8.1 [facility] [place]ervilleQgotavsEJMNDVYWZT0057-31-04 09:42:00 Test Item Value Reference Range Interpretation Comments Monocytes (test code = Monocytes) 7.4 2.0-12.0 [facility] [place]ervilleFfmahppBZTJFKRJQB8016-70-55 09:42:00 Test Item Value Reference Range Interpretation Comments Lymphocytes # (test code = Lymphocytes 1.3 1.0-5.5 #) [facility] [place]ervilleQthlnzyXRQJCIDTOU5957-36-75 09:42:00 Test Item Value Reference Range Interpretation Comments Monocytes # (test code 0.3 See_Comment [Aut omated message] The = Monocytes #) system which generated this result tra nsmitted reference range : <=0.8. The reference r jamaica was not used to int erpret this result as normal/abnormal . [facility] [place]ervilleUuubyszFQUWZJJHTD0817-28-15 09:42:00 Test Item Value Reference Range Interpretation Comments Eosinophils # (test code 0.1 See_Comment [A utomated message] The = Eosinophils #) system whic h generated this result tra nsmitted reference range : <=0.5. The reference r jamaica was not used to int erpret this result as normal/abnormal . [facility]ervilleRyfgpdnLFUPYMXRSZ3599-68-45 09:42:00 Test Item Value Reference Range Interpretation Comments Basophils # (test code 0.0 See_Comment [Aut omated message] The = Basophils #) system which generated this result tra nsmitted reference range : <=0.2. The reference r jamaica was not used to int erpret this result as normal/abnormal . [place] 653004-05-07 09:42:00 Test Item Value Reference Range Interpretation Comments Lymphocytes (test code = Lymphocytes) 30.7 20.0-40.0 [facility] [place]ervilleSvsvlddGBJFMOTHLX6535-58-04 09:42:00 Test Item Value Reference Range Interpretation Comments Segs (test code = Segs) 60.1 45.0-75.0 [facility]2014-05-07 09:42:00 Test Item Value Reference Range Interpretation Comments Magnesium Lvl (test code = Magnesium 2.0 1.8-2.4 Lvl) [facility]2014-05-07 09:42:00 Test Item Value Reference Range Interpretation Comments eGFR (test code = eGFR) 113 [facility]2014-05-07 09:42:00 Test Item Value Reference Range Interpretation Comments BUN (test code = BUN) 4 7-22 [place] 695474-05-07 09:42:00 Test Item Value Reference Range Interpretation Comments Potassium Lvl (test code = Potassium 3.8 3.5-5.1 Lvl) [facility]2014-05-07 09:42:00 Test Item Value Reference Range Interpretation Comments Creatinine Lvl (test code = Creatinine 0.5 0.5-1.4 Lvl) [facility]2014-05-07 09:42:00 Test Item Value Reference Range Interpretation Comments Glucose Lvl (test code = Glucose Lvl) 94 70-99 [facility]2014-05-07 09:42:00 Test Item Value Reference Range Interpretation Comments Sodium Lvl (test code = Sodium Lvl) 142 135-145 [facility]2014-05-07 09:42:00 Test Item Value Reference Range Interpretation Comments Calcium Lvl (test code = Calcium Lvl) 8.7 8.5-10.5 [facility]2014-05-07 09:42:00 Test Item Value Reference Range Interpretation Comments Chloride Lvl (test code = Chloride Lvl) 105 95-109 [facility]2014-05-07 09:42:00 Test Item Value Reference Range Interpretation Comments CO2 (test code = CO2) 30 24-32 [facility]2014-05-07 09:42:00 Test Item Value Reference Range Interpretation Comments AGAP (test code = AGAP) 10.8 10.0-20.0 [facility] [place]ervilleZouackrMCFUIPUSQG2515-61-46 09:42:00 Test Item Value Reference Range Interpretation Comments WBC (test code = WBC) 4.4 3.7-10.4 [facility] [place]ervilleXghacduAKWLWSBHNS4769-55-22 09:42:00 Test Item Value Reference Range Interpretation Comments RBC (test code = RBC) 3.80 4.20-5.40 [facility] [place]ervilleYpggafdABTQBUBVRY5734-71-99 09:42:00 Test Item Value Reference Range Interpretation Comments MCH (test code = MCH) 31.1 pg 27.0-31.0 [facility] [place]ervillePuyqxvzOOSFDSNGPV3056-62-18 09:42:00 Test Item Value Reference Range Interpretation Comments Hgb (test code = Hgb) 11.8 12.0-16.0 [place] 653004-05-07 09:42:00 Test Item Value Reference Range Interpretation Comments Hct (test code = Hct) 34.5 36.0-48.0 [facility] [place]ervilleFunxxzsTOGKUFULFR6816-96-70 09:42:00 Test Item Value Reference Range Interpretation Comments MCV (test code = MCV) 90.6 81.0-99.0 [facility] [place]ervilleIfhflrhXCZASSKHCK6790-48-16 09:42:00 Test Item Value Reference Range Interpretation Comments RDW (test code = RDW) 16.3 11.5-14.5 [facility] [place]ervilleDnnafecZXBNBJWUCL6231-03-31 09:42:00 Test Item Value Reference Range Interpretation Comments MCHC (test code = MCHC) 34.3 32.0-36.0 [facility]ervilleWwfcivvKBYYKVXQSY0677-60-27 09:42:00 Test Item Value Reference Range Interpretation Comments Platelet (test code = Platelet) 167 133-450 [facility] [place]ervilleShweftuHDGVPKFQLJ8677-06-10 09:42:00 Test Item Value Reference Range Interpretation Comments MPV (test code = MPV) 7.9 7.4-10.4 [facility] [place]ervilleXwcqolaQDLZUBYSPF4398-34-44 09:42:00 Test Item Value Reference Range Interpretation Comments Eosinophils (test code = 1.6 See_Comment [A utomated message] The Eosinophils) system which ge nerated this result tra nsmitted reference range : <=4.0. The reference r jamaica was not used to int erpret this result as normal/abnormal . [facility] [place]ervilleTxucokpIPMYRRRCMK1357-70-97 09:42:00 Test Item Value Reference Range Interpretation Comments Basophils (test code = 0.2 See_Comment [Aut omated message] The Basophils) system which ge nerated this result tra nsmitted reference range : <=1.0. The reference r jamaica was not used to int erpret this result as normal/abnormal . [facility] [place]ervilleTbtovfiOGIMOAQUHB3605-73-03 09:42:00 Test Item Value Reference Range Interpretation Comments Segs-Bands # (test code = Segs-Bands #) 2.6 1.5-8.1 [facility] [place]ervilleQkmqbkzJTJJKEBHHU6882-10-29 09:42:00 Test Item Value Reference Range Interpretation Comments Monocytes (test code = Monocytes) 7.4 2.0-12.0 [facility] [place]ervilleCdtieukNCJEPCBKWP0745-84-00 09:42:00 Test Item Value Reference Range Interpretation Comments Lymphocytes # (test code = Lymphocytes 1.3 1.0-5.5 #) [facility] [place]ervilleXvunowjKCMQGWMUEP0391-05-54 09:42:00 Test Item Value Reference Range Interpretation Comments Monocytes # (test code 0.3 See_Comment [Aut omated message] The = Monocytes #) system which generated this result tra nsmitted reference range : <=0.8. The reference r jamaica was not used to int erpret this result as normal/abnormal . [facility]ervilleEgdkumxNQFOWYXYGE2557-64-88 09:42:00 Test Item Value Reference Range Interpretation Comments Eosinophils # (test code 0.1 See_Comment [A utomated message] The = Eosinophils #) system whic h generated this result tra nsmitted reference range : <=0.5. The reference r jamaica was not used to int erpret this result as normal/abnormal . [facility] [place]ervilleUhcpthqRPJTPZYFHU3891-04-27 09:42:00 Test Item Value Reference Range Interpretation Comments Basophils # (test code 0.0 See_Comment [Aut omated message] The = Basophils #) system which generated this result tra nsmitted reference range : <=0.2. The reference r jamaica was not used to int erpret this result as normal/abnormal . [place] [address]-05-07 09:42:00 Test Item Value Reference Range Interpretation Comments Lymphocytes (test code = Lymphocytes) 30.7 20.0-40.0 [place] [place] [address]-[place]-07 09:42:00 Test Item Value Reference Range Interpretation Comments Segs (test code = Segs) 60.1 45.0-75.0 [facility]2014-05-07 09:42:00 Test Item Value Reference Range Interpretation Comments Magnesium Lvl (test code = Magnesium 2.0 1.8-2.4 Lvl) [facility]2014-05-07 09:42:00 Test Item Value Reference Range Interpretation Comments eGFR (test code = eGFR) 113 [facility]2014-05-07 09:42:00 Test Item Value Reference Range Interpretation Comments BUN (test code = BUN) 4 7-22 [place] 695474-05-07 09:42:00 Test Item Value Reference Range Interpretation Comments Potassium Lvl (test code = Potassium 3.8 3.5-5.1 Lvl) [place] [address]-05-07 09:42:00 Test Item Value Reference Range Interpretation Comments Creatinine Lvl (test code = Creatinine 0.5 0.5-1.4 Lvl) [facility]2014-05-07 09:42:00 Test Item Value Reference Range Interpretation Comments Glucose Lvl (test code = Glucose Lvl) 94 70-99 [place] [address]-05-07 09:42:00 Test Item Value Reference Range Interpretation Comments Sodium Lvl (test code = Sodium Lvl) 142 135-145 [place]95474-05-07 09:42:00 Test Item Value Reference Range Interpretation Comments Calcium Lvl (test code = Calcium Lvl) 8.7 8.5-10.5 [place] 695474-05-07 09:42:00 Test Item Value Reference Range Interpretation Comments Chloride Lvl (test code = Chloride Lvl) 105 95-109 [place] 695474-05-07 09:42:00 Test Item Value Reference Range Interpretation Comments CO2 (test code = CO2) 30 24-32 [place] 695474-05-07 09:42:00 Test Item Value Reference Range Interpretation Comments AGAP (test code = AGAP) 10.8 10.0-20.0 [place] 653004-05-07 09:42:00 Test Item Value Reference Range Interpretation Comments WBC (test code = WBC) 4.4 3.7-10.4 [place] 653004-05-07 09:42:00 Test Item Value Reference Range Interpretation Comments RBC (test code = RBC) 3.80 4.20-5.40 [place] [address]-05-07 09:42:00 Test Item Value Reference Range Interpretation Comments MCH (test code = MCH) 31.1 pg 27.0-31.0 [place] [address]-05-07 09:42:00 Test Item Value Reference Range Interpretation Comments Hgb (test code = Hgb) 11.8 12.0-16.0 [place] [address]-05-07 09:42:00 Test Item Value Reference Range Interpretation Comments Hct (test code = Hct) 34.5 36.0-48.0 [place] [address]-05-07 09:42:00 Test Item Value Reference Range Interpretation Comments MCV (test code = MCV) 90.6 81.0-99.0 [facility]SxvbzjfEABVORRNWW4775-51-73 09:42:00 Test Item Value Reference Range Interpretation Comments RDW (test code = RDW) 16.3 11.5-14.5 [facility] [place]SccxtecTSMPHHCXCH7961-36-60 09:42:00 Test Item Value Reference Range Interpretation Comments MCHC (test code = MCHC) 34.3 32.0-36.0 [facility] [place]JshvqjhZJNIYWVSNI3660-27-25 09:42:00 Test Item Value Reference Range Interpretation Comments Platelet (test code = Platelet) 167 133-450 [facility] [place]NpiobydMEGDBGWSNR6010-65-85 09:42:00 Test Item Value Reference Range Interpretation Comments MPV (test code = MPV) 7.9 7.4-10.4 [facility] [place]FcpppamOCCMSGHPQV2455-81-06 09:42:00 Test Item Value Reference Range Interpretation Comments Eosinophils (test code = 1.6 See_Comment [A utomated message] The Eosinophils) system which ge nerated this result tra nsmitted reference range : <=4.0. The reference r jamaica was not used to int erpret this result as normal/abnormal . [facility]GdqhnqxVSNBTVLZNH1626-77-62 09:42:00 Test Item Value Reference Range Interpretation Comments Basophils (test code = 0.2 See_Comment [Aut omated message] The Basophils) system which ge nerated this result tra nsmitted reference range : <=1.0. The reference r jamaica was not used to int erpret this result as normal/abnormal . [facility] [place]ZnhqgfvDNSVOUHMRS4813-40-78 09:42:00 Test Item Value Reference Range Interpretation Comments Segs-Bands # (test code = Segs-Bands #) 2.6 1.5-8.1 [facility] [place]ervilleHriqsppVPSMNBITXH1160-06-66 09:42:00 Test Item Value Reference Range Interpretation Comments Monocytes (test code = Monocytes) 7.4 2.0-12.0 [facility] [place]ervilleAbohmvpSJHHTDVGPV9734-07-34 09:42:00 Test Item Value Reference Range Interpretation Comments Lymphocytes # (test code = Lymphocytes 1.3 1.0-5.5 #) [facility] [place]ervilleJdwsonnUGQOAOHUQL4536-81-40 09:42:00 Test Item Value Reference Range Interpretation Comments Monocytes # (test code 0.3 See_Comment [Aut omated message] The = Monocytes #) system which generated this result tra nsmitted reference range : <=0.8. The reference r jamaica was not used to int erpret this result as normal/abnormal . [facility] [place]ervilleJhfirynLCDLHBRKYL8414-30-41 09:42:00 Test Item Value Reference Range Interpretation Comments Eosinophils # (test code 0.1 See_Comment [A utomated message] The = Eosinophils #) system whic h generated this result tra nsmitted reference range : <=0.5. The reference r jamaica was not used to int erpret this result as normal/abnormal . [facility] [place]ervilleUbvntdwXWQORDJRSH6889-35-11 09:42:00 Test Item Value Reference Range Interpretation Comments Basophils # (test code 0.0 See_Comment [Aut omated message] The = Basophils #) system which generated this result tra nsmitted reference range : <=0.2. The reference r jamaica was not used to int erpret this result as normal/abnormal . [facility] [place]PnrahdjQXORTNLEMP0774-70-57 09:42:00 Test Item Value Reference Range Interpretation Comments Lymphocytes (test code = Lymphocytes) 30.7 20.0-40.0 [facility] [place]SjlbogvZBEPDDEDHF6259-44-15 09:42:00 Test Item Value Reference Range Interpretation Comments Segs (test code = Segs) 60.1 45.0-75.0 [facility]2014-05-07 09:42:00 Test Item Value Reference Range Interpretation Comments Magnesium Lvl (test code = Magnesium 2.0 1.8-2.4 Lvl) [facility]2014-05-07 09:42:00 Test Item Value Reference Range Interpretation Comments eGFR (test code = eGFR) 113 [facility]2014-05-07 09:42:00 Test Item Value Reference Range Interpretation Comments BUN (test code = BUN) 4 7-22 [facility]2014-05-07 09:42:00 Test Item Value Reference Range Interpretation Comments Potassium Lvl (test code = Potassium 3.8 3.5-5.1 Lvl) [facility]2014-05-07 09:42:00 Test Item Value Reference Range Interpretation Comments Creatinine Lvl (test code = Creatinine 0.5 0.5-1.4 Lvl) [place] 695474-05-07 09:42:00 Test Item Value Reference Range Interpretation Comments Glucose Lvl (test code = Glucose Lvl) 94 70-99 [facility]2014-05-07 09:42:00 Test Item Value Reference Range Interpretation Comments Sodium Lvl (test code = Sodium Lvl) 142 135-145 [place] 695474-05-07 09:42:00 Test Item Value Reference Range Interpretation Comments Calcium Lvl (test code = Calcium Lvl) 8.7 8.5-10.5 [facility]2014-05-07 09:42:00 Test Item Value Reference Range Interpretation Comments Chloride Lvl (test code = Chloride Lvl) 105 95-109 [facility]2014-05-07 09:42:00 Test Item Value Reference Range Interpretation Comments CO2 (test code = CO2) 30 24-32 [place] 695474-05-07 09:42:00 Test Item Value Reference Range Interpretation Comments AGAP (test code = AGAP) 10.8 10.0-20.0 [place] 653004-05-07 09:42:00 Test Item Value Reference Range Interpretation Comments WBC (test code = WBC) 4.4 3.7-10.4 [place] 653004-05-07 09:42:00 Test Item Value Reference Range Interpretation Comments RBC (test code = RBC) 3.80 4.20-5.40 [place] 653004-05-07 09:42:00 Test Item Value Reference Range Interpretation Comments MCH (test code = MCH) 31.1 pg 27.0-31.0 [facility] [place]ervilleAzltytdAJKVWJXZSZ1587-61-09 09:42:00 Test Item Value Reference Range Interpretation Comments Hgb (test code = Hgb) 11.8 12.0-16.0 [place] [address]-05-07 09:42:00 Test Item Value Reference Range Interpretation Comments Hct (test code = Hct) 34.5 36.0-48.0 [facility] [place]ervilleTmqilkaZJSQGVCMAM5897-20-54 09:42:00 Test Item Value Reference Range Interpretation Comments MCV (test code = MCV) 90.6 81.0-99.0 [place] [address]-05-07 09:42:00 Test Item Value Reference Range Interpretation Comments RDW (test code = RDW) 16.3 11.5-14.5 [facility] [place]JnkuysjKSFKCCABII0802-29-46 09:42:00 Test Item Value Reference Range Interpretation Comments MCHC (test code = MCHC) 34.3 32.0-36.0 [facility] [place]ervilleDnphehyMHLCTTCYSA7587-56-57 09:42:00 Test Item Value Reference Range Interpretation Comments Platelet (test code = Platelet) 167 133-450 [facility] [place]ervilleQnpxdsuXOWJJPONRS1668-17-87 09:42:00 Test Item Value Reference Range Interpretation Comments MPV (test code = MPV) 7.9 7.4-10.4 [facility] [place]ervilleBxvtnrxJUOUOLDMGL7025-01-27 09:42:00 Test Item Value Reference Range Interpretation Comments Eosinophils (test code = 1.6 See_Comment [A utomated message] The Eosinophils) system which ge nerated this result tra nsmitted reference range : <=4.0. The reference r jamaica was not used to int erpret this result as normal/abnormal . [facility] [place]ervilleDktcjdwDLLXNPMWIS5566-73-96 09:42:00 Test Item Value Reference Range Interpretation Comments Basophils (test code = 0.2 See_Comment [Aut omated message] The Basophils) system which ge nerated this result tra nsmitted reference range : <=1.0. The reference r jamaica was not used to int erpret this result as normal/abnormal . [facility] [place]ervilleWsseorwCLTPMUMAMA6126-27-02 09:42:00 Test Item Value Reference Range Interpretation Comments Segs-Bands # (test code = Segs-Bands #) 2.6 1.5-8.1 [facility] [place]ervilleNkzcvpqRRGUMUMYYV8169-14-29 09:42:00 Test Item Value Reference Range Interpretation Comments Monocytes (test code = Monocytes) 7.4 2.0-12.0 [facility] [place]PpaquwqCAMUQYXURT4238-36-68 09:42:00 Test Item Value Reference Range Interpretation Comments Lymphocytes # (test code = Lymphocytes 1.3 1.0-5.5 #) [facility] [place]ervilleQrqlcktCHXEJXWTKV2295-56-75 09:42:00 Test Item Value Reference Range Interpretation Comments Monocytes # (test code 0.3 See_Comment [Aut omated message] The = Monocytes #) system which generated this result tra nsmitted reference range : <=0.8. The reference r jamaica was not used to int erpret this result as normal/abnormal . [facility]ervilleOgvvaoaKGOQFDDSAM8650-77-40 09:42:00 Test Item Value Reference Range Interpretation Comments Eosinophils # (test code 0.1 See_Comment [A utomated message] The = Eosinophils #) system whic h generated this result tra nsmitted reference range : <=0.5. The reference r jamaica was not used to int erpret this result as normal/abnormal . [facility] [place]ervilleAuomgixPKTLEGQPFT7129-01-58 09:42:00 Test Item Value Reference Range Interpretation Comments Basophils # (test code 0.0 See_Comment [Aut omated message] The = Basophils #) system which generated this result tra nsmitted reference range : <=0.2. The reference r jamaica was not used to int erpret this result as normal/abnormal . [facility] [place]ervilleAyewklvQSXYYZMHSZ5334-51-37 09:42:00 Test Item Value Reference Range Interpretation Comments Lymphocytes (test code = Lymphocytes) 30.7 20.0-40.0 [facility] [place]ervilleKgxthguKSFLXXFTOI8270-56-90 09:42:00 Test Item Value Reference Range Interpretation Comments Segs (test code = Segs) 60.1 45.0-75.0 [facility]2014-05-07 09:42:00 Test Item Value Reference Range Interpretation Comments Magnesium Lvl (test code = Magnesium 2.0 1.8-2.4 Lvl) [facility]2014-05-07 09:42:00 Test Item Value Reference Range Interpretation Comments eGFR (test code = eGFR) 113 [facility]2014-05-07 09:42:00 Test Item Value Reference Range Interpretation Comments BUN (test code = BUN) 4 7-22 [place] 695474-05-07 09:42:00 Test Item Value Reference Range Interpretation Comments Potassium Lvl (test code = Potassium 3.8 3.5-5.1 Lvl) [facility]2014-05-07 09:42:00 Test Item Value Reference Range Interpretation Comments Creatinine Lvl (test code = Creatinine 0.5 0.5-1.4 Lvl) [facility]2014-05-07 09:42:00 Test Item Value Reference Range Interpretation Comments Glucose Lvl (test code = Glucose Lvl) 94 70-99 [facility]2014-05-07 09:42:00 Test Item Value Reference Range Interpretation Comments Sodium Lvl (test code = Sodium Lvl) 142 135-145 [facility]2014-05-07 09:42:00 Test Item Value Reference Range Interpretation Comments Calcium Lvl (test code = Calcium Lvl) 8.7 8.5-10.5 [facility]2014-05-07 09:42:00 Test Item Value Reference Range Interpretation Comments Chloride Lvl (test code = Chloride Lvl) 105 95-109 [facility]2014-05-07 09:42:00 Test Item Value Reference Range Interpretation Comments CO2 (test code = CO2) 30 24-32 [facility]2014-05-07 09:42:00 Test Item Value Reference Range Interpretation Comments AGAP (test code = AGAP) 10.8 10.0-20.0 [facility]ervilleWujczwfZDNGSQOFIT3726-99-03 09:42:00 Test Item Value Reference Range Interpretation Comments WBC (test code = WBC) 4.4 3.7-10.4 [facility] [place]ervilleImqawbxNFNCXOSSFS2571-57-85 09:42:00 Test Item Value Reference Range Interpretation Comments RBC (test code = RBC) 3.80 4.20-5.40 [facility] [place]ervilleCyhhgfjIGVWQROUYD9322-58-06 09:42:00 Test Item Value Reference Range Interpretation Comments MCH (test code = MCH) 31.1 pg 27.0-31.0 [facility] [place]ervilleGgliojnKTPPKFPAMB9271-04-83 09:42:00 Test Item Value Reference Range Interpretation Comments Hgb (test code = Hgb) 11.8 12.0-16.0 [facility] [place]ervilleIegujfaYTXPMYGUEZ0474-10-00 09:42:00 Test Item Value Reference Range Interpretation Comments Hct (test code = Hct) 34.5 36.0-48.0 [facility] [place]ervilleKhjlaieZRVXMBMSMX3826-13-45 09:42:00 Test Item Value Reference Range Interpretation Comments MCV (test code = MCV) 90.6 81.0-99.0 [facility] [place]ervilleKjmarcxCNRVDPLWWQ7807-15-08 09:42:00 Test Item Value Reference Range Interpretation Comments RDW (test code = RDW) 16.3 11.5-14.5 [facility] [place]ervilleJcrngieQZYBSAKJPI1788-72-74 09:42:00 Test Item Value Reference Range Interpretation Comments MCHC (test code = MCHC) 34.3 32.0-36.0 [facility] [place]ervilleRsoyoayATQWXTOEMS8308-37-19 09:42:00 Test Item Value Reference Range Interpretation Comments Platelet (test code = Platelet) 167 133-450 [facility] [place]ervillePjrxenhIRNIDKXMAJ6254-81-92 09:42:00 Test Item Value Reference Range Interpretation Comments MPV (test code = MPV) 7.9 7.4-10.4 [facility] [place]ervilleCyoxxtrPFORDYKLNW5926-99-88 09:42:00 Test Item Value Reference Range Interpretation Comments Eosinophils (test code = 1.6 See_Comment [A utomated message] The Eosinophils) system which ge nerated this result tra nsmitted reference range : <=4.0. The reference r jamaica was not used to int erpret this result as normal/abnormal . [facility]ervillePmbhwesFQHOPUCNVN9619-51-94 09:42:00 Test Item Value Reference Range Interpretation Comments Basophils (test code = 0.2 See_Comment [Aut omated message] The Basophils) system which ge nerated this result tra nsmitted reference range : <=1.0. The reference r jamaica was not used to int erpret this result as normal/abnormal . [facility] [place]ervilleTkvzhmdHLOFHWVPMT5376-57-98 09:42:00 Test Item Value Reference Range Interpretation Comments Segs-Bands # (test code = Segs-Bands #) 2.6 1.5-8.1 [facility] [place]ervilleBfsjwohWSOQZBOCED1758-97-94 09:42:00 Test Item Value Reference Range Interpretation Comments Monocytes (test code = Monocytes) 7.4 2.0-12.0 [facility] [place]PdquhbjQKYLLIYCCP7640-58-58 09:42:00 Test Item Value Reference Range Interpretation Comments Lymphocytes # (test code = Lymphocytes 1.3 1.0-5.5 #) [facility] [place]ervilleCneyfvqJVQCFJRRIL0630-34-75 09:42:00 Test Item Value Reference Range Interpretation Comments Monocytes # (test code 0.3 See_Comment [Aut omated message] The = Monocytes #) system which generated this result tra nsmitted reference range : <=0.8. The reference r jamaica was not used to int erpret this result as normal/abnormal . [facility] [place]ervilleZkjlrepVQFXKDFYPV5559-81-50 09:42:00 Test Item Value Reference Range Interpretation Comments Eosinophils # (test code 0.1 See_Comment [A utomated message] The = Eosinophils #) system whic h generated this result tra nsmitted reference range : <=0.5. The reference r jamaica was not used to int erpret this result as normal/abnormal . [facility]ervilleBpmyahnKHVYSDGUBK9619-26-23 09:42:00 Test Item Value Reference Range Interpretation Comments Basophils # (test code 0.0 See_Comment [Aut omated message] The = Basophils #) system which generated this result tra nsmitted reference range : <=0.2. The reference r jamaica was not used to int erpret this result as normal/abnormal . [facility] [place]ervilleTyejmvwOEIJXMMHKR1690-77-48 09:42:00 Test Item Value Reference Range Interpretation Comments Lymphocytes (test code = Lymphocytes) 30.7 20.0-40.0 [facility] [place]ervilleSqbkwgdDBTQXUMKQP4867-55-99 09:42:00 Test Item Value Reference Range Interpretation Comments Segs (test code = Segs) 60.1 45.0-75.0 [facility]2014-05-07 09:42:00 Test Item Value Reference Range Interpretation Comments Magnesium Lvl (test code = Magnesium 2.0 1.8-2.4 Lvl) [facility]2014-05-07 09:42:00 Test Item Value Reference Range Interpretation Comments eGFR (test code = eGFR) 113 [facility]2014-05-07 09:42:00 Test Item Value Reference Range Interpretation Comments BUN (test code = BUN) 4 7-22 [facility]2014-05-07 09:42:00 Test Item Value Reference Range Interpretation Comments Potassium Lvl (test code = Potassium 3.8 3.5-5.1 Lvl) [facility]2014-05-07 09:42:00 Test Item Value Reference Range Interpretation Comments Creatinine Lvl (test code = Creatinine 0.5 0.5-1.4 Lvl) [facility]2014-05-07 09:42:00 Test Item Value Reference Range Interpretation Comments Glucose Lvl (test code = Glucose Lvl) 94 70-99 [place] 695474-05-07 09:42:00 Test Item Value Reference Range Interpretation Comments Sodium Lvl (test code = Sodium Lvl) 142 135-145 [facility]2014-05-07 09:42:00 Test Item Value Reference Range Interpretation Comments Calcium Lvl (test code = Calcium Lvl) 8.7 8.5-10.5 [facility]2014-05-07 09:42:00 Test Item Value Reference Range Interpretation Comments Chloride Lvl (test code = Chloride Lvl) 105 95-109 [facility]2014-05-07 09:42:00 Test Item Value Reference Range Interpretation Comments CO2 (test code = CO2) 30 24-32 [facility]2014-05-07 09:42:00 Test Item Value Reference Range Interpretation Comments AGAP (test code = AGAP) 10.8 10.0-20.0 [facility] [place]ervilleVblazklNZKNZPOHBN8476-14-15 09:42:00 Test Item Value Reference Range Interpretation Comments WBC (test code = WBC) 4.4 3.7-10.4 [facility] [place]ervilleVwhwaqkQSWOMMGDOQ4847-06-62 09:42:00 Test Item Value Reference Range Interpretation Comments RBC (test code = RBC) 3.80 4.20-5.40 [facility] [place]ervilleJzxzxmqNCDOTGLHOJ6295-30-99 09:42:00 Test Item Value Reference Range Interpretation Comments MCH (test code = MCH) 31.1 pg 27.0-31.0 [facility] [place]ervilleWxzrgbhEZCMIGZDNQ4494-20-65 09:42:00 Test Item Value Reference Range Interpretation Comments Hgb (test code = Hgb) 11.8 12.0-16.0 [facility] [place]ervilleIhabfdmSTNCCTVLDU7900-85-64 09:42:00 Test Item Value Reference Range Interpretation Comments Hct (test code = Hct) 34.5 36.0-48.0 [facility] [place]ervilleHnsuzyiHRGCLZVXYK2888-94-12 09:42:00 Test Item Value Reference Range Interpretation Comments MCV (test code = MCV) 90.6 81.0-99.0 [facility] [place]ervilleMbqnzehVZQUCUXUKL2055-15-16 09:42:00 Test Item Value Reference Range Interpretation Comments RDW (test code = RDW) 16.3 11.5-14.5 [facility] [place]ervilleFfrpbpaGDCGCQOZYB5549-45-17 09:42:00 Test Item Value Reference Range Interpretation Comments MCHC (test code = MCHC) 34.3 32.0-36.0 [facility] [place]ervilleRhrdzdcDHDJSVWAFZ6390-21-49 09:42:00 Test Item Value Reference Range Interpretation Comments Platelet (test code = Platelet) 167 133-450 [facility] [place]ervilleZjoqkkbTVEUSGNWIH9833-61-79 09:42:00 Test Item Value Reference Range Interpretation Comments MPV (test code = MPV) 7.9 7.4-10.4 [facility]ervilleZqshgnxBEEVCOHFQM1876-13-41 09:42:00 Test Item Value Reference Range Interpretation Comments Eosinophils (test code = 1.6 See_Comment [A utomated message] The Eosinophils) system which ge nerated this result tra nsmitted reference range : <=4.0. The reference r jamaica was not used to int erpret this result as normal/abnormal . [facility]ervilleTfqfasoCOBXJCTUFP8786-64-24 09:42:00 Test Item Value Reference Range Interpretation Comments Basophils (test code = 0.2 See_Comment [Aut omated message] The Basophils) system which ge nerated this result tra nsmitted reference range : <=1.0. The reference r jamaica was not used to int erpret this result as normal/abnormal . [facility]ervilleWcfquyqWMTQKKSOUA3258-94-15 09:42:00 Test Item Value Reference Range Interpretation Comments Segs-Bands # (test code = Segs-Bands #) 2.6 1.5-8.1 [facility] [place]ervilleVyjllhvIUTWVHWZRP3650-19-53 09:42:00 Test Item Value Reference Range Interpretation Comments Monocytes (test code = Monocytes) 7.4 2.0-12.0 [facility] [place]ervilleAipujdlTRCTDMANMW4701-61-43 09:42:00 Test Item Value Reference Range Interpretation Comments Lymphocytes # (test code = Lymphocytes 1.3 1.0-5.5 #) [facility] [place]ervillePdwcwchRLIEFIDKCS5302-54-73 09:42:00 Test Item Value Reference Range Interpretation Comments Monocytes # (test code 0.3 See_Comment [Aut omated message] The = Monocytes #) system which generated this result tra nsmitted reference range : <=0.8. The reference r jamaica was not used to int erpret this result as normal/abnormal . [facility] [place]ervilleXnhepylJCMFNFBTNF2513-80-22 09:42:00 Test Item Value Reference Range Interpretation Comments Eosinophils # (test code 0.1 See_Comment [A utomated message] The = Eosinophils #) system whic h generated this result tra nsmitted reference range : <=0.5. The reference r jamaica was not used to int erpret this result as normal/abnormal . [facility] [facility] [place]HaakouaJXOMLEBOFU2195-32-24 09:42:00 Test Item Value Reference Range Interpretation Comments Basophils # (test code 0.0 See_Comment [Aut omated message] The = Basophils #) system which generated this result tra nsmitted reference range : <=0.2. The reference r jamaica was not used to int erpret this result as normal/abnormal . [place] 653004-05-07 09:42:00 Test Item Value Reference Range Interpretation Comments Lymphocytes (test code = Lymphocytes) 30.7 20.0-40.0 [place] 653004-05-07 09:42:00 Test Item Value Reference Range Interpretation Comments Segs (test code = Segs) 60.1 45.0-75.0 [facility]2014-05-07 09:42:00 Test Item Value Reference Range Interpretation Comments Magnesium Lvl (test code = Magnesium 2.0 1.8-2.4 Lvl) [facility]2014-05-07 09:42:00 Test Item Value Reference Range Interpretation Comments eGFR (test code = eGFR) 113 [facility]2014-05-07 09:42:00 Test Item Value Reference Range Interpretation Comments BUN (test code = BUN) 4 7-22 [facility]2014-05-07 09:42:00 Test Item Value Reference Range Interpretation Comments Potassium Lvl (test code = Potassium 3.8 3.5-5.1 Lvl) [facility]2014-05-07 09:42:00 Test Item Value Reference Range Interpretation Comments Creatinine Lvl (test code = Creatinine 0.5 0.5-1.4 Lvl) [facility]2014-05-07 09:42:00 Test Item Value Reference Range Interpretation Comments Glucose Lvl (test code = Glucose Lvl) 94 70-99 [place] 695474-05-07 09:42:00 Test Item Value Reference Range Interpretation Comments Sodium Lvl (test code = Sodium Lvl) 142 135-145 [facility]2014-05-07 09:42:00 Test Item Value Reference Range Interpretation Comments Calcium Lvl (test code = Calcium Lvl) 8.7 8.5-10.5 [facility]2014-05-07 09:42:00 Test Item Value Reference Range Interpretation Comments Chloride Lvl (test code = Chloride Lvl) 105 95-109 [facility] XDAQR6481-09-30 09:42:00 Test Item Value Reference Range Interpretation Comments CO2 (test code = CO2) 30 24-32 [facility] [id number] 09:42:00 Test Item Value Reference Range Interpretation Comments AGAP (test code = AGAP) 10.8 10.0-20.0 [facility] [place]NeckwqdDPAXOCEKZR3749-26-54 09:42:00 Test Item Value Reference Range Interpretation Comments WBC (test code = WBC) 4.4 3.7-10.4 [facility] [place]XrorianFUUVTWRQPF3813-73-94 09:42:00 Test Item Value Reference Range Interpretation Comments RBC (test code = RBC) 3.80 4.20-5.40 [facility] [place]DmkecufOOQATMBRWY5869-03-27 09:42:00 Test Item Value Reference Range Interpretation Comments MCH (test code = MCH) 31.1 pg 27.0-31.0 [facility] [place]OgogbjaJSSFVHEGWI5812-73-15 09:42:00 Test Item Value Reference Range Interpretation Comments Hgb (test code = Hgb) 11.8 12.0-16.0 [facility] [place]ervilleJoedyerJSVCNVSLUR7714-04-45 09:42:00 Test Item Value Reference Range Interpretation Comments Hct (test code = Hct) 34.5 36.0-48.0 [facility] [place]VcxucnbZQUGVHVWRI8937-75-96 09:42:00 Test Item Value Reference Range Interpretation Comments MCV (test code = MCV) 90.6 81.0-99.0 [facility] [place]KguwhnkJNOLERFVLP0046-92-78 09:42:00 Test Item Value Reference Range Interpretation Comments RDW (test code = RDW) 16.3 11.5-14.5 [facility] [place]YdsdxhiLVXIDJDEWW2519-87-77 09:42:00 Test Item Value Reference Range Interpretation Comments MCHC (test code = MCHC) 34.3 32.0-36.0 [facility] [place]ervilleFyuibilDQFSFTCFAH5589-28-80 09:42:00 Test Item Value Reference Range Interpretation Comments Platelet (test code = Platelet) 167 133-450 [facility] [place]ervilleFrgxjpbSELIVHEFWA0243-19-11 09:42:00 Test Item Value Reference Range Interpretation Comments MPV (test code = MPV) 7.9 7.4-10.4 [facility] [place]ervilleLbqhgjxIERAJCDFBT5060-57-82 09:42:00 Test Item Value Reference Range Interpretation Comments Eosinophils (test code = 1.6 See_Comment [A utomated message] The Eosinophils) system which ge nerated this result tra nsmitted reference range : <=4.0. The reference r jamaica was not used to int erpret this result as normal/abnormal . [facility] [place]ervilleShgxzniKQUGGDHUMJ0329-76-50 09:42:00 Test Item Value Reference Range Interpretation Comments Basophils (test code = 0.2 See_Comment [Aut omated message] The Basophils) system which ge nerated this result tra nsmitted reference range : <=1.0. The reference r jamaica was not used to int erpret this result as normal/abnormal . [facility] [place]ervilleVjpwgziFXCBODJCOU0558-46-87 09:42:00 Test Item Value Reference Range Interpretation Comments Segs-Bands # (test code = Segs-Bands #) 2.6 1.5-8.1 [facility] [place]ervilleTmawensPUUUOVLVZL2735-16-71 09:42:00 Test Item Value Reference Range Interpretation Comments Monocytes (test code = Monocytes) 7.4 2.0-12.0 [facility] [place]ervilleZguxzrrNGAREQNHWX3863-09-03 09:42:00 Test Item Value Reference Range Interpretation Comments Lymphocytes # (test code = Lymphocytes 1.3 1.0-5.5 #) [facility] [place]ervilleUuusmynNBHYEQYFXS7157-05-44 09:42:00 Test Item Value Reference Range Interpretation Comments Monocytes # (test code 0.3 See_Comment [Aut omated message] The = Monocytes #) system which generated this result tra nsmitted reference range : <=0.8. The reference r jamaica was not used to int erpret this result as normal/abnormal . [facility] [place]ervilleHsfprssPLJOIVZWND2448-23-94 09:42:00 Test Item Value Reference Range Interpretation Comments Eosinophils # (test code 0.1 See_Comment [A utomated message] The = Eosinophils #) system whic h generated this result tra nsmitted reference range : <=0.5. The reference r jamaica was not used to int erpret this result as normal/abnormal . [facility] [place]ervilleCohomdaBYPORPZRVG8573-65-17 09:42:00 Test Item Value Reference Range Interpretation Comments Basophils # (test code 0.0 See_Comment [Aut omated message] The = Basophils #) system which generated this result tra nsmitted reference range : <=0.2. The reference r jamaica was not used to int erpret this result as normal/abnormal . [facility] [place]ervilleSxzuiggNEMOGJOSOQ8756-92-20 09:42:00 Test Item Value Reference Range Interpretation Comments Lymphocytes (test code = Lymphocytes) 30.7 20.0-40.0 [facility] [place]ervilleRvzkiwmXXCSWKALTT6073-62-57 09:42:00 Test Item Value Reference Range Interpretation Comments Segs (test code = Segs) 60.1 45.0-75.0 [facility]2014-05-07 09:42:00 Test Item Value Reference Range Interpretation Comments Magnesium Lvl (test code = Magnesium 2.0 1.8-2.4 Lvl) [facility] [place]ervilleZhinaudSHCVLYXMEH0061-17-69 09:42:00 Test Item Value Reference Range Interpretation Comments WBC (test code = WBC) 4.4 3.7-10.4 [facility] [place]LghremfEAAMVLNTSC0212-95-67 09:42:00 Test Item Value Reference Range Interpretation Comments RBC (test code = RBC) 3.80 4.20-5.40 [facility] [place]ervilleGqqzyowGWAKZTTQCA9627-40-01 09:42:00 Test Item Value Reference Range Interpretation Comments MCH (test code = MCH) 31.1 pg 27.0-31.0 [facility] [place]ervilleBcmvpdnVPMDXPOWSV1538-98-73 09:42:00 Test Item Value Reference Range Interpretation Comments Hgb (test code = Hgb) 11.8 12.0-16.0 [facility] [place]ervilleUaybegjLSATFZSZWM0909-02-02 09:42:00 Test Item Value Reference Range Interpretation Comments Hct (test code = Hct) 34.5 36.0-48.0 [facility] [place]ervilleErzbuczEPPPKIHRKB4671-15-36 09:42:00 Test Item Value Reference Range Interpretation Comments MCV (test code = MCV) 90.6 81.0-99.0 [facility] [place]YmangvcFOMCIWIOEE7841-11-69 09:42:00 Test Item Value Reference Range Interpretation Comments RDW (test code = RDW) 16.3 11.5-14.5 [facility] [place]ervilleUvdudlbMRMDBBNAEH1946-55-29 09:42:00 Test Item Value Reference Range Interpretation Comments MCHC (test code = MCHC) 34.3 32.0-36.0 [place] [address]-05-07 09:42:00 Test Item Value Reference Range Interpretation Comments Platelet (test code = Platelet) 167 133-450 [facility] [place]ervilleZkipwyfJBZSGQEEEN9695-33-93 09:42:00 Test Item Value Reference Range Interpretation Comments MPV (test code = MPV) 7.9 7.4-10.4 [facility] [place]ervilleUpgiiciGAIDFBMSJT0470-36-75 09:42:00 Test Item Value Reference Range Interpretation Comments Eosinophils (test code = 1.6 See_Comment [A utomated message] The Eosinophils) system which ge nerated this result tra nsmitted reference range : <=4.0. The reference r jamaica was not used to int erpret this result as normal/abnormal . [facility] [place]YxyjhgsJAEBFPAGSN9601-88-98 09:42:00 Test Item Value Reference Range Interpretation Comments Basophils (test code = 0.2 See_Comment [Aut omated message] The Basophils) system which ge nerated this result tra nsmitted reference range : <=1.0. The reference r jamaica was not used to int erpret this result as normal/abnormal . [facility] [place]ervilleXzaboquSKJJRPKNOG8573-97-72 09:42:00 Test Item Value Reference Range Interpretation Comments Segs-Bands # (test code = Segs-Bands #) 2.6 1.5-8.1 [facility] [place]XiqevscMFTWIREZBA0410-52-97 09:42:00 Test Item Value Reference Range Interpretation Comments Monocytes (test code = Monocytes) 7.4 2.0-12.0 [facility] [place]ervilleIawiggdVGECJQYHMD8731-95-69 09:42:00 Test Item Value Reference Range Interpretation Comments Lymphocytes # (test code = Lymphocytes 1.3 1.0-5.5 #) [facility] [place]ervilleTsowaghLKLJRRQXQJ4463-37-06 09:42:00 Test Item Value Reference Range Interpretation Comments Monocytes # (test code 0.3 See_Comment [Aut omated message] The = Monocytes #) system which generated this result tra nsmitted reference range : <=0.8. The reference r jamaica was not used to int erpret this result as normal/abnormal . [facility] [place]ervilleWvsmmevNJCQRXZHOR5388-19-49 09:42:00 Test Item Value Reference Range Interpretation Comments Eosinophils # (test code 0.1 See_Comment [A utomated message] The = Eosinophils #) system whic h generated this result tra nsmitted reference range : <=0.5. The reference r jamaica was not used to int erpret this result as normal/abnormal . [facility] [place]ervilleZzdmeqbOJNAYYDSUD4030-23-52 09:42:00 Test Item Value Reference Range Interpretation Comments Basophils # (test code 0.0 See_Comment [Aut omated message] The = Basophils #) system which generated this result tra nsmitted reference range : <=0.2. The reference r jamaica was not used to int erpret this result as normal/abnormal . [facility] [place]ervilleEhqwympKFATMWJVOW5205-63-31 09:42:00 Test Item Value Reference Range Interpretation Comments Lymphocytes (test code = Lymphocytes) 30.7 20.0-40.0 [facility] [place]ervilleUiqtzofMNYJPTGCSG1388-40-03 09:42:00 Test Item Value Reference Range Interpretation Comments Segs (test code = Segs) 60.1 45.0-75.0 [place] 695474-05-07 09:42:00 Test Item Value Reference Range Interpretation Comments Magnesium Lvl (test code = Magnesium 2.0 1.8-2.4 Lvl) [facility]2014-05-07 09:42:00 Test Item Value Reference Range Interpretation Comments eGFR (test code = eGFR) 113 [facility]2014-05-07 09:42:00 Test Item Value Reference Range Interpretation Comments BUN (test code = BUN) 4 7-22 [facility]2014-05-07 09:42:00 Test Item Value Reference Range Interpretation Comments Potassium Lvl (test code = Potassium 3.8 3.5-5.1 Lvl) [facility]2014-05-07 09:42:00 Test Item Value Reference Range Interpretation Comments Creatinine Lvl (test code = Creatinine 0.5 0.5-1.4 Lvl) [facility]2014-05-07 09:42:00 Test Item Value Reference Range Interpretation Comments Glucose Lvl (test code = Glucose Lvl) 94 70-99 [facility]2014-05-07 09:42:00 Test Item Value Reference Range Interpretation Comments Sodium Lvl (test code = Sodium Lvl) 142 135-145 [facility]2014-05-07 09:42:00 Test Item Value Reference Range Interpretation Comments Calcium Lvl (test code = Calcium Lvl) 8.7 8.5-10.5 [facility]2014-05-07 09:42:00 Test Item Value Reference Range Interpretation Comments Chloride Lvl (test code = Chloride Lvl) 105 95-109 [facility]2014-05-07 09:42:00 Test Item Value Reference Range Interpretation Comments CO2 (test code = CO2) 30 24-32 [facility]2014-05-07 09:42:00 Test Item Value Reference Range Interpretation Comments AGAP (test code = AGAP) 10.8 10.0-20.0 [facility]2014-05-05 12:13:00 Test Item Value Reference Range Interpretation Comments Magnesium Lvl (test code = Magnesium 1.8 1.8-2.4 Lvl) [facility]2014-05-05 12:13:00 Test Item Value Reference Range Interpretation Comments Phosphorus (test code = Phosphorus) 2.6 2.5-4.5 [facility]2014-05-05 12:13:00 Test Item Value Reference Range Interpretation Comments Globulin (test code = Globulin) 2.8 2.0-4.0 [facility]2014-05-05 12:13:00 Test Item Value Reference Range Interpretation Comments A/G Ratio (test code = A/G Ratio) 1.2 0.7-1.6 [facility]2014-05-05 12:13:00 Test Item Value Reference Range Interpretation Comments B/C Ratio (test code = B/C Ratio) 10 6-25 [facility]2014-05-05 12:13:00 Test Item Value Reference Range Interpretation Comments AGAP (test code = AGAP) 6.9 10.0-20.0 [facility]2014-05-05 12:13:00 Test Item Value Reference Range Interpretation Comments eGFR (test code = eGFR) 101 [facility]2014-05-05 12:13:00 Test Item Value Reference Range Interpretation Comments Glucose Lvl (test code = Glucose Lvl) 84 70-99 [facility]2014-05-05 12:13:00 Test Item Value Reference Range Interpretation Comments Potassium Lvl (test code = Potassium 3.9 3.5-5.1 Lvl) [facility]2014-05-05 12:13:00 Test Item Value Reference Range Interpretation Comments Sodium Lvl (test code = Sodium Lvl) 141 135-145 [facility]2014-05-05 12:13:00 Test Item Value Reference Range Interpretation Comments Creatinine Lvl (test code = Creatinine 0.7 0.5-1.4 Lvl) [facility]2014-05-05 12:13:00 Test Item Value Reference Range Interpretation Comments BUN (test code = BUN) 7 7-22 [facility]2014-05-05 12:13:00 Test Item Value Reference Range Interpretation Comments Bili Total (test code = Bili Total) 0.3 0.2-1.3 [facility]2014-05-05 12:13:00 Test Item Value Reference Range Interpretation Comments Alk Phos (test code = Alk Phos) 71 39-136 [facility]2014-05-05 12:13:00 Test Item Value Reference Range Interpretation Comments AST (test code = AST) 21 See_Comment [Auto mated message] The system which ge nerated this result transmit ulysses reference range : <=37. The reference range was not used to interpr et this result as sharron l/abnormal. [facility]2014-05-05 12:13:00 Test Item Value Reference Range Interpretation Comments ALT (test code = ALT) 20 See_Comment [Auto mated message] The system which ge nerated this result transmit ulysses reference range : <=65. The reference range was not used to interpr et this result as sharron l/abnormal. [facility]2014-05-05 12:13:00 Test Item Value Reference Range Interpretation Comments Total Protein (test code = Total 6.1 6.4-8.4 Protein) [facility]2014-05-05 12:13:00 Test Item Value Reference Range Interpretation Comments CO2 (test code = CO2) 33 24-32 [facility]2014-05-05 12:13:00 Test Item Value Reference Range Interpretation Comments Albumin Lvl (test code = Albumin Lvl) 3.3 3.5-5.0 [facility]2014-05-05 12:13:00 Test Item Value Reference Range Interpretation Comments Calcium Lvl (test code = Calcium Lvl) 8.4 8.5-10.5 [facility]2014-05-05 12:13:00 Test Item Value Reference Range Interpretation Comments Chloride Lvl (test code = Chloride Lvl) 105 95-109 [facility] [place]ervilleCvbsejmWDAKZWKQVN7336-37-27 12:13:00 Test Item Value Reference Range Interpretation Comments Basophils # (test code 0.0 See_Comment [Aut omated message] The = Basophils #) system which generated this result tra nsmitted reference range : <=0.2. The reference r jamaica was not used to int erpret this result as normal/abnormal . [facility] [place]ervilleAqdqcjsIJANRUFJSZ0248-84-12 12:13:00 Test Item Value Reference Range Interpretation Comments Segs (test code = Segs) 63.5 45.0-75.0 [facility] [place]ervilleRlhmzpoEHHLRQKGUC1507-39-42 12:13:00 Test Item Value Reference Range Interpretation Comments Monocytes # (test code 0.3 See_Comment [Aut omated message] The = Monocytes #) system which generated this result tra nsmitted reference range : <=0.8. The reference r jamaica was not used to int erpret this result as normal/abnormal . [facility] [place]ervilleLhcotmzQXVGTFINGE5157-75-51 12:13:00 Test Item Value Reference Range Interpretation Comments Basophils (test code = 0.2 See_Comment [Aut omated message] The Basophils) system which ge nerated this result tra nsmitted reference range : <=1.0. The reference r jamaica was not used to int erpret this result as normal/abnormal . [facility] [place]XhtswrjLOOIOZXWUZ0726-91-45 12:13:00 Test Item Value Reference Range Interpretation Comments Lymphocytes # (test code = Lymphocytes 1.5 1.0-5.5 #) [facility] [place]ItnjfmiHPGRUSWGIM2600-83-80 12:13:00 Test Item Value Reference Range Interpretation Comments Segs-Bands # (test code = Segs-Bands #) 3.3 1.5-8.1 [facility] [place]OifgckbTYRDCTMHUV3011-53-19 12:13:00 Test Item Value Reference Range Interpretation Comments Eosinophils # (test code 0.1 See_Comment [A utomated message] The = Eosinophils #) system whic h generated this result tra nsmitted reference range : <=0.5. The reference r jamaica was not used to int erpret this result as normal/abnormal . [facility] [place]ervilleRibuolkTINIRFWRRL6818-85-12 12:13:00 Test Item Value Reference Range Interpretation Comments Lymphocytes (test code = Lymphocytes) 28.9 20.0-40.0 [facility] [place]MrxzzlhILSDDEPVXO3659-42-68 12:13:00 Test Item Value Reference Range Interpretation Comments Monocytes (test code = Monocytes) 6.2 2.0-12.0 [facility] [place]QtwbtotXZZPGRQYTX2514-53-04 12:13:00 Test Item Value Reference Range Interpretation Comments Eosinophils (test code = 1.2 See_Comment [A utomated message] The Eosinophils) system which ge nerated this result tra nsmitted reference range : <=4.0. The reference r jamaica was not used to int erpret this result as normal/abnormal . [facility] [place]ervilleGovizbfGGCSBTYQMN2711-35-44 12:13:00 Test Item Value Reference Range Interpretation Comments MCHC (test code = MCHC) 34.3 32.0-36.0 [facility] [place]ervilleFrxdhaoJBVLTKIEUY6503-60-66 12:13:00 Test Item Value Reference Range Interpretation Comments RDW (test code = RDW) 16.5 11.5-14.5 [facility] [place]XzhbwvyOVEAQKFYFG1735-70-80 12:13:00 Test Item Value Reference Range Interpretation Comments MCH (test code = MCH) 31.5 pg 27.0-31.0 [facility] [place]ervilleDeqsilbCNPSDGOWZE4360-96-38 12:13:00 Test Item Value Reference Range Interpretation Comments MCV (test code = MCV) 91.9 81.0-99.0 [facility] [place]VozhinwAWNYJVDCLD6907-86-68 12:13:00 Test Item Value Reference Range Interpretation Comments Platelet (test code = Platelet) 177 133-450 [facility] [place]ervilleNknuitqNYGFCQPWYD7513-68-01 12:13:00 Test Item Value Reference Range Interpretation Comments MPV (test code = MPV) 7.9 7.4-10.4 [facility] [place]ervilleMdugxykUFKTTOPAGE5929-82-04 12:13:00 Test Item Value Reference Range Interpretation Comments RBC (test code = RBC) 3.91 4.20-5.40 [facility] [place]ervilleLhmzpkbLDJOPPNREA3104-87-78 12:13:00 Test Item Value Reference Range Interpretation Comments Hct (test code = Hct) 35.9 36.0-48.0 [facility] [place]OhsucifTOXTDAICTM9540-47-75 12:13:00 Test Item Value Reference Range Interpretation Comments Hgb (test code = Hgb) 12.3 12.0-16.0 [facility]ukWZCVMYHDWA7605-[facility] 12:13:00 Test Item Value Reference Range Interpretation Comments WBC (test code = WBC) 5.1 3.7-10.4 [facility]2014-05-05 12:13:00 Test Item Value Reference Range Interpretation Comments Magnesium Lvl (test code = Magnesium 1.8 1.8-2.4 Lvl) [facility]2014-05-05 12:13:00 Test Item Value Reference Range Interpretation Comments Phosphorus (test code = Phosphorus) 2.6 2.5-4.5 [facility]2014-05-05 12:13:00 Test Item Value Reference Range Interpretation Comments Globulin (test code = Globulin) 2.8 2.0-4.0 [facility]2014-05-05 12:13:00 Test Item Value Reference Range Interpretation Comments A/G Ratio (test code = A/G Ratio) 1.2 0.7-1.6 [facility]2014-05-05 12:13:00 Test Item Value Reference Range Interpretation Comments B/C Ratio (test code = B/C Ratio) 10 6-25 [facility]2014-05-05 12:13:00 Test Item Value Reference Range Interpretation Comments AGAP (test code = AGAP) 6.9 10.0-20.0 [facility]2014-05-05 12:13:00 Test Item Value Reference Range Interpretation Comments eGFR (test code = eGFR) 101 [facility]2014-05-05 12:13:00 Test Item Value Reference Range Interpretation Comments Glucose Lvl (test code = Glucose Lvl) 84 70-99 [facility]2014-05-05 12:13:00 Test Item Value Reference Range Interpretation Comments Potassium Lvl (test code = Potassium 3.9 3.5-5.1 Lvl) [facility]2014-05-05 12:13:00 Test Item Value Reference Range Interpretation Comments Sodium Lvl (test code = Sodium Lvl) 141 135-145 [facility]2014-05-05 12:13:00 Test Item Value Reference Range Interpretation Comments Creatinine Lvl (test code = Creatinine 0.7 0.5-1.4 Lvl) [facility]2014-05-05 12:13:00 Test Item Value Reference Range Interpretation Comments BUN (test code = BUN) 7 7-22 [facility]2014-05-05 12:13:00 Test Item Value Reference Range Interpretation Comments Bili Total (test code = Bili Total) 0.3 0.2-1.3 [facility]2014-05-05 12:13:00 Test Item Value Reference Range Interpretation Comments Alk Phos (test code = Alk Phos) 71 39-136 [facility]2014-05-05 12:13:00 Test Item Value Reference Range Interpretation Comments AST (test code = AST) 21 See_Comment [Auto mated message] The system which ge nerated this result transmit ulysses reference range : <=37. The reference range was not used to interpr et this result as sharron l/abnormal. [facility]2014-05-05 12:13:00 Test Item Value Reference Range Interpretation Comments ALT (test code = ALT) 20 See_Comment [Auto mated message] The system which ge nerated this result transmit ulysses reference range : <=65. The reference range was not used to interpr et this result as sharron l/abnormal. [facility]2014-05-05 12:13:00 Test Item Value Reference Range Interpretation Comments Total Protein (test code = Total 6.1 6.4-8.4 Protein) [facility]2014-05-05 12:13:00 Test Item Value Reference Range Interpretation Comments CO2 (test code = CO2) 33 24-32 [facility]2014-05-05 12:13:00 Test Item Value Reference Range Interpretation Comments Albumin Lvl (test code = Albumin Lvl) 3.3 3.5-5.0 [facility]2014-05-05 12:13:00 Test Item Value Reference Range Interpretation Comments Calcium Lvl (test code = Calcium Lvl) 8.4 8.5-10.5 [facility]2014-05-05 12:13:00 Test Item Value Reference Range Interpretation Comments Chloride Lvl (test code = Chloride Lvl) 105 95-109 [facility]BlnqptoPQSUHBHWQM6039-36-81 12:13:00 Test Item Value Reference Range Interpretation Comments Basophils # (test code 0.0 See_Comment [Aut omated message] The = Basophils #) system which generated this result tra nsmitted reference range : <=0.2. The reference r jamaica was not used to int erpret this result as normal/abnormal . [facility]UhtwttqRDVGZUJZRL7712-25-87 12:13:00 Test Item Value Reference Range Interpretation Comments Segs (test code = Segs) 63.5 45.0-75.0 [facility] [place]ervilleZmqzmkdFXISOBUYWX1014-41-16 12:13:00 Test Item Value Reference Range Interpretation Comments Monocytes # (test code 0.3 See_Comment [Aut omated message] The = Monocytes #) system which generated this result tra nsmitted reference range : <=0.8. The reference r jamaica was not used to int erpret this result as normal/abnormal . [facility] [place]IzuyjdzTPZJJQZXWT4859-32-87 12:13:00 Test Item Value Reference Range Interpretation Comments Basophils (test code = 0.2 See_Comment [Aut omated message] The Basophils) system which ge nerated this result tra nsmitted reference range : <=1.0. The reference r jamaica was not used to int erpret this result as normal/abnormal . [facility] [place]ervilleRbkospgFDCODNHRWJ4493-39-39 12:13:00 Test Item Value Reference Range Interpretation Comments Lymphocytes # (test code = Lymphocytes 1.5 1.0-5.5 #) [facility] [place]ervilleCfacaghYACFPHRZAB4094-39-39 12:13:00 Test Item Value Reference Range Interpretation Comments Segs-Bands # (test code = Segs-Bands #) 3.3 1.5-8.1 [facility] [place]KfcdhvaBUJZFRXKEM7149-75-11 12:13:00 Test Item Value Reference Range Interpretation Comments Eosinophils # (test code 0.1 See_Comment [A utomated message] The = Eosinophils #) system whic h generated this result tra nsmitted reference range : <=0.5. The reference r jamaica was not used to int erpret this result as normal/abnormal . [facility] [place]ervilleRjcpfxnOKSVMNTUQV3191-25-60 12:13:00 Test Item Value Reference Range Interpretation Comments Lymphocytes (test code = Lymphocytes) 28.9 20.0-40.0 [facility] [place]ervilleQbojdduKJQUEGWIWI7155-34-20 12:13:00 Test Item Value Reference Range Interpretation Comments Monocytes (test code = Monocytes) 6.2 2.0-12.0 [facility] [place]ervilleXvqleuaCFTDKQAPWA8695-35-07 12:13:00 Test Item Value Reference Range Interpretation Comments Eosinophils (test code = 1.2 See_Comment [A utomated message] The Eosinophils) system which ge nerated this result tra nsmitted reference range : <=4.0. The reference r jamaica was not used to int erpret this result as normal/abnormal . [facility] [place]ervilleDfautthNMOEUWPHII1842-82-78 12:13:00 Test Item Value Reference Range Interpretation Comments MCHC (test code = MCHC) 34.3 32.0-36.0 [facility] [place]EujcfrsNZKJXSZMEQ8477-93-76 12:13:00 Test Item Value Reference Range Interpretation Comments RDW (test code = RDW) 16.5 11.5-14.5 [facility] [place]OtytkkxFHBRQHNHZB4423-44-18 12:13:00 Test Item Value Reference Range Interpretation Comments MCH (test code = MCH) 31.5 pg 27.0-31.0 [facility] [place]ervilleXpnafxvRRWLDEBXNA9570-71-97 12:13:00 Test Item Value Reference Range Interpretation Comments MCV (test code = MCV) 91.9 81.0-99.0 [facility] [place]ervillePughryjCEINDFZJSC2820-07-25 12:13:00 Test Item Value Reference Range Interpretation Comments Platelet (test code = Platelet) 177 133-450 [facility] [place]ervilleXkuognhKLBPKRYLAX5016-83-48 12:13:00 Test Item Value Reference Range Interpretation Comments MPV (test code = MPV) 7.9 7.4-10.4 [facility] [place]ervilleNkrtlzgKRSESXTAQA2313-72-15 12:13:00 Test Item Value Reference Range Interpretation Comments RBC (test code = RBC) 3.91 4.20-5.40 [facility] [place]ervilleUwwgjnjCDKBEWZSKG4479-99-75 12:13:00 Test Item Value Reference Range Interpretation Comments Hct (test code = Hct) 35.9 36.0-48.0 [facility] [place]ervilleKsqptcuIKXIGUVNTX6843-39-88 12:13:00 Test Item Value Reference Range Interpretation Comments Hgb (test code = Hgb) 12.3 12.0-16.0 [facility] [place]ervillePosjsziPKKRHQJGXO3775-83-20 12:13:00 Test Item Value Reference Range Interpretation Comments WBC (test code = WBC) 5.1 3.7-10.4 [facility]2014-05-05 12:13:00 Test Item Value Reference Range Interpretation Comments Magnesium Lvl (test code = Magnesium 1.8 1.8-2.4 Lvl) [facility]2014-05-05 12:13:00 Test Item Value Reference Range Interpretation Comments Phosphorus (test code = Phosphorus) 2.6 2.5-4.5 [facility]2014-05-05 12:13:00 Test Item Value Reference Range Interpretation Comments Globulin (test code = Globulin) 2.8 2.0-4.0 [facility]2014-05-05 12:13:00 Test Item Value Reference Range Interpretation Comments A/G Ratio (test code = A/G Ratio) 1.2 0.7-1.6 [facility]2014-05-05 12:13:00 Test Item Value Reference Range Interpretation Comments B/C Ratio (test code = B/C Ratio) 10 6-25 [place] 695474-05-05 12:13:00 Test Item Value Reference Range Interpretation Comments AGAP (test code = AGAP) 6.9 10.0-20.0 [facility]2014-05-05 12:13:00 Test Item Value Reference Range Interpretation Comments eGFR (test code = eGFR) 101 [facility]2014-05-05 12:13:00 Test Item Value Reference Range Interpretation Comments Glucose Lvl (test code = Glucose Lvl) 84 70-99 [facility]2014-05-05 12:13:00 Test Item Value Reference Range Interpretation Comments Potassium Lvl (test code = Potassium 3.9 3.5-5.1 Lvl) [facility]2014-05-05 12:13:00 Test Item Value Reference Range Interpretation Comments Sodium Lvl (test code = Sodium Lvl) 141 135-145 [facility]2014-05-05 12:13:00 Test Item Value Reference Range Interpretation Comments Creatinine Lvl (test code = Creatinine 0.7 0.5-1.4 Lvl) [facility]2014-05-05 12:13:00 Test Item Value Reference Range Interpretation Comments BUN (test code = BUN) 7 7-22 [facility]2014-05-05 12:13:00 Test Item Value Reference Range Interpretation Comments Bili Total (test code = Bili Total) 0.3 0.2-1.3 [facility]2014-05-05 12:13:00 Test Item Value Reference Range Interpretation Comments Alk Phos (test code = Alk Phos) 71 39-136 [facility]2014-05-05 12:13:00 Test Item Value Reference Range Interpretation Comments AST (test code = AST) 21 See_Comment [Auto mated message] The system which ge nerated this result transmit ulysses reference range : <=37. The reference range was not used to interpr et this result as sharron l/abnormal. [facility]2014-05-05 12:13:00 Test Item Value Reference Range Interpretation Comments ALT (test code = ALT) 20 See_Comment [Auto mated message] The system which ge nerated this result transmit ulysses reference range : <=65. The reference range was not used to interpr et this result as sharron l/abnormal. [facility]2014-05-05 12:13:00 Test Item Value Reference Range Interpretation Comments Total Protein (test code = Total 6.1 6.4-8.4 Protein) [facility]2014-05-05 12:13:00 Test Item Value Reference Range Interpretation Comments CO2 (test code = CO2) 33 24-32 [facility]2014-05-05 12:13:00 Test Item Value Reference Range Interpretation Comments Albumin Lvl (test code = Albumin Lvl) 3.3 3.5-5.0 [facility]2014-05-05 12:13:00 Test Item Value Reference Range Interpretation Comments Calcium Lvl (test code = Calcium Lvl) 8.4 8.5-10.5 [facility]2014-05-05 12:13:00 Test Item Value Reference Range Interpretation Comments Chloride Lvl (test code = Chloride Lvl) 105 95-109 [facility]ervilleUjyceucUSFPITRHZV1592-14-17 12:13:00 Test Item Value Reference Range Interpretation Comments Basophils # (test code 0.0 See_Comment [Aut omated message] The = Basophils #) system which generated this result tra nsmitted reference range : <=0.2. The reference r jamaica was not used to int erpret this result as normal/abnormal . [place] 653004-05-05 12:13:00 Test Item Value Reference Range Interpretation Comments Segs (test code = Segs) 63.5 45.0-75.0 [facility] [place]ervilleIaitsayISCFTCJGZD4995-23-02 12:13:00 Test Item Value Reference Range Interpretation Comments Monocytes # (test code 0.3 See_Comment [Aut omated message] The = Monocytes #) system which generated this result tra nsmitted reference range : <=0.8. The reference r jamaica was not used to int erpret this result as normal/abnormal . [facility]ervilleYkauzkkQQAEDEHIYP0460-58-88 12:13:00 Test Item Value Reference Range Interpretation Comments Basophils (test code = 0.2 See_Comment [Aut omated message] The Basophils) system which ge nerated this result tra nsmitted reference range : <=1.0. The reference r jamaica was not used to int erpret this result as normal/abnormal . [facility] [place]ervilleKivpiooADFRSQPRUL3994-06-98 12:13:00 Test Item Value Reference Range Interpretation Comments Lymphocytes # (test code = Lymphocytes 1.5 1.0-5.5 #) [facility] [place]ervilleZhbtbrvHQQOYWABSM9158-21-66 12:13:00 Test Item Value Reference Range Interpretation Comments Segs-Bands # (test code = Segs-Bands #) 3.3 1.5-8.1 [facility] [place]ervilleTaxaeirYRDTKSQSCA7983-70-95 12:13:00 Test Item Value Reference Range Interpretation Comments Eosinophils # (test code 0.1 See_Comment [A utomated message] The = Eosinophils #) system [facility] h generated this result tra nsmitted reference range : <=0.5. The reference r jamaica was not used to int erpret this result as normal/abnormal . [facility]ervilleSziayzwUDREIYUWOQ8102-30-17 12:13:00 Test Item Value Reference Range Interpretation Comments Lymphocytes (test code = Lymphocytes) 28.9 20.0-40.0 [facility] [place]ervilleOxccyxgGGPCEHSGLT2959-38-59 12:13:00 Test Item Value Reference Range Interpretation Comments Monocytes (test code = Monocytes) 6.2 2.0-12.0 [facility] [place]ervilleVlgjkqsJJQUURRGAI8056-95-54 12:13:00 Test Item Value Reference Range Interpretation Comments Eosinophils (test code = 1.2 See_Comment [A utomated message] The Eosinophils) system which ge nerated this result tra nsmitted reference range : <=4.0. The reference r jamaica was not used to int erpret this result as normal/abnormal . [facility] [place]ervilleWxmuqunCKISUUWBPV2197-43-22 12:13:00 Test Item Value Reference Range Interpretation Comments MCHC (test code = MCHC) 34.3 32.0-36.0 [facility] [place]ervilleXnijdfiSDRBOJWNFV5982-42-05 12:13:00 Test Item Value Reference Range Interpretation Comments RDW (test code = RDW) 16.5 11.5-14.5 [facility] [place]ervilleMnpydahUPEYDAMWGG5531-97-36 12:13:00 Test Item Value Reference Range Interpretation Comments MCH (test code = MCH) 31.5 pg 27.0-31.0 [facility] [place]ervilleVctxupzVMEZHTNBDA7816-07-08 12:13:00 Test Item Value Reference Range Interpretation Comments MCV (test code = MCV) 91.9 81.0-99.0 [facility] [place]ervilleSubodiuTEBHBVATNU4347-84-88 12:13:00 Test Item Value Reference Range Interpretation Comments Platelet (test code = Platelet) 177 133-450 [facility] [place]ervilleJccynbmHDXBRKNYIM9738-20-03 12:13:00 Test Item Value Reference Range Interpretation Comments MPV (test code = MPV) 7.9 7.4-10.4 [facility] [place]ervilleOuorrlyLLGWQIVYWH2072-62-50 12:13:00 Test Item Value Reference Range Interpretation Comments RBC (test code = RBC) 3.91 4.20-5.40 [facility] [place]ervilleYiyyopsWOPEJNETTN4260-51-94 12:13:00 Test Item Value Reference Range Interpretation Comments Hct (test code = Hct) 35.9 36.0-48.0 [facility] [place]ervilleHhhytugRDVZAFQKWS8433-26-84 12:13:00 Test Item Value Reference Range Interpretation Comments Hgb (test code = Hgb) 12.3 12.0-16.0 [facility]ervilleRdnbtqvYGLRWAUUAD1286-28-71 12:13:00 Test Item Value Reference Range Interpretation Comments WBC (test code = WBC) 5.1 3.7-10.4 [facility]2014-05-05 12:13:00 Test Item Value Reference Range Interpretation Comments Magnesium Lvl (test code = Magnesium 1.8 1.8-2.4 Lvl) [facility]2014-05-05 12:13:00 Test Item Value Reference Range Interpretation Comments Phosphorus (test code = Phosphorus) 2.6 2.5-4.5 [facility]2014-05-05 12:13:00 Test Item Value Reference Range Interpretation Comments Globulin (test code = Globulin) 2.8 2.0-4.0 [facility]2014-05-05 12:13:00 Test Item Value Reference Range Interpretation Comments A/G Ratio (test code = A/G Ratio) 1.2 0.7-1.6 [facility]2014-05-05 12:13:00 Test Item Value Reference Range Interpretation Comments B/C Ratio (test code = B/C Ratio) 10 6-25 [facility]2014-05-05 12:13:00 Test Item Value Reference Range Interpretation Comments AGAP (test code = AGAP) 6.9 10.0-20.0 [facility]2014-05-05 12:13:00 Test Item Value Reference Range Interpretation Comments eGFR (test code = eGFR) 101 [facility]2014-05-05 12:13:00 Test Item Value Reference Range Interpretation Comments Glucose Lvl (test code = Glucose Lvl) 84 70-99 [facility]2014-05-05 12:13:00 Test Item Value Reference Range Interpretation Comments Potassium Lvl (test code = Potassium 3.9 3.5-5.1 Lvl) [facility]2014-05-05 12:13:00 Test Item Value Reference Range Interpretation Comments Sodium Lvl (test code = Sodium Lvl) 141 135-145 [facility]2014-05-05 12:13:00 Test Item Value Reference Range Interpretation Comments Creatinine Lvl (test code = Creatinine 0.7 0.5-1.4 Lvl) [facility]2014-05-05 12:13:00 Test Item Value Reference Range Interpretation Comments BUN (test code = BUN) 7 7-22 [facility]2014-05-05 12:13:00 Test Item Value Reference Range Interpretation Comments Bili Total (test code = Bili Total) 0.3 0.2-1.3 [facility]2014-05-05 12:13:00 Test Item Value Reference Range Interpretation Comments Alk Phos (test code = Alk Phos) 71 39-136 [facility]2014-05-05 12:13:00 Test Item Value Reference Range Interpretation Comments AST (test code = AST) 21 See_Comment [Auto mated message] The system which ge nerated this result transmit ulysses reference range : <=37. The reference range was not used to interpr et this result as sharron l/abnormal. [facility]2014-05-05 12:13:00 Test Item Value Reference Range Interpretation Comments ALT (test code = ALT) 20 See_Comment [Auto mated message] The system which ge nerated this result transmit ulysses reference range : <=65. The reference range was not used to interpr et this result as sharron l/abnormal. [place] 695474-05-05 12:13:00 Test Item Value Reference Range Interpretation Comments Total Protein (test code = Total 6.1 6.4-8.4 Protein) [facility]2014-05-05 12:13:00 Test Item Value Reference Range Interpretation Comments CO2 (test code = CO2) 33 24-32 [place] 695474-05-05 12:13:00 Test Item Value Reference Range Interpretation Comments Albumin Lvl (test code = Albumin Lvl) 3.3 3.5-5.0 [facility]2014-05-05 12:13:00 Test Item Value Reference Range Interpretation Comments Calcium Lvl (test code = Calcium Lvl) 8.4 8.5-10.5 [facility]2014-05-05 12:13:00 Test Item Value Reference Range Interpretation Comments Chloride Lvl (test code = Chloride Lvl) 105 95-109 [facility]ervilleMvwuzejQIKFSVTCNZ3893-58-55 12:13:00 Test Item Value Reference Range Interpretation Comments Basophils # (test code 0.0 See_Comment [Aut omated message] The = Basophils #) system which generated this result tra nsmitted reference range : <=0.2. The reference r jamaica was not used to int erpret this result as normal/abnormal . [facility]ervilleRycdfevZLYQBMSMAU8869-54-19 12:13:00 Test Item Value Reference Range Interpretation Comments Segs (test code = Segs) 63.5 45.0-75.0 [facility] [place]ervilleWawawymWAWQAIBCTY9929-67-94 12:13:00 Test Item Value Reference Range Interpretation Comments Monocytes # (test code 0.3 See_Comment [Aut omated message] The = Monocytes #) system which generated this result tra nsmitted reference range : <=0.8. The reference r jamaica was not used to int erpret this result as normal/abnormal . [facility]ervilleUgvzgsjZXWFVAVJPS8645-35-12 12:13:00 Test Item Value Reference Range Interpretation Comments Basophils (test code = 0.2 See_Comment [Aut omated message] The Basophils) system which ge nerated this result tra nsmitted reference range : <=1.0. The reference r jamaica was not used to int erpret this result as normal/abnormal . [facility]ervilleOqvngwsBPYEMNRQCY0379-01-60 12:13:00 Test Item Value Reference Range Interpretation Comments Lymphocytes # (test code = Lymphocytes 1.5 1.0-5.5 #) [facility]ervilleNraalfiBHKHEVJRIE3871-66-67 12:13:00 Test Item Value Reference Range Interpretation Comments Segs-Bands # (test code = Segs-Bands #) 3.3 1.5-8.1 [facility]ervilleElqqhrgMUWIILTXPP2626-59-71 12:13:00 Test Item Value Reference Range Interpretation Comments Eosinophils # (test code 0.1 See_Comment [A utomated message] The = Eosinophils #) system whic h generated this result tra nsmitted reference range : <=0.5. The reference r jamaica was not used to int erpret this result as normal/abnormal . [facility]ervilleKjyfwobVSKKZGNDJE6923-42-95 12:13:00 Test Item Value Reference Range Interpretation Comments Lymphocytes (test code = Lymphocytes) 28.9 20.0-40.0 [facility]ervillePugqtzaJONUTTBHMJ9097-43-53 12:13:00 Test Item Value Reference Range Interpretation Comments Monocytes (test code = Monocytes) 6.2 2.0-12.0 [facility] [place]ervilleObutcocOSYZEZIWZJ0470-80-68 12:13:00 Test Item Value Reference Range Interpretation Comments Eosinophils (test code = 1.2 See_Comment [A utomated message] The Eosinophils) system which ge nerated this result tra nsmitted reference range : <=4.0. The reference r jamaica was not used to int erpret this result as normal/abnormal . [facility]ervilleYkcyfqfLUMTQSCVCT1645-64-96 12:13:00 Test Item Value Reference Range Interpretation Comments MCHC (test code = MCHC) 34.3 32.0-36.0 [facility]ervilleHflbkvvXNOTWOMVTR6572-21-36 12:13:00 Test Item Value Reference Range Interpretation Comments RDW (test code = RDW) 16.5 11.5-14.5 [facility]ervilleEhekpdvUYVWDCWOIB0174-17-31 12:13:00 Test Item Value Reference Range Interpretation Comments MCH (test code = MCH) 31.5 pg 27.0-31.0 [facility] [place]ervilleKstrdwmRGRYIGVVZT9677-56-58 12:13:00 Test Item Value Reference Range Interpretation Comments MCV (test code = MCV) 91.9 81.0-99.0 [facility]ervilleJqhgnlqXWYYSJFZYM3092-66-69 12:13:00 Test Item Value Reference Range Interpretation Comments Platelet (test code = Platelet) 177 133-450 [facility] [place]ervilleIdfgclbQOJCQNQGZI9952-46-04 12:13:00 Test Item Value Reference Range Interpretation Comments MPV (test code = MPV) 7.9 7.4-10.4 [facility] [place]ervilleHzgovxkRRTHHGNIUY8359-96-79 12:13:00 Test Item Value Reference Range Interpretation Comments RBC (test code = RBC) 3.91 4.20-5.40 [facility]ervilleZmtymoeNIHFLJBTCO3875-95-82 12:13:00 Test Item Value Reference Range Interpretation Comments Hct (test code = Hct) 35.9 36.0-48.0 [facility]ervilleNgibhyyERMRVRABGG5639-04-28 12:13:00 Test Item Value Reference Range Interpretation Comments Hgb (test code = Hgb) 12.3 12.0-16.0 [facility]ervilleHpsczdcNULGVDELCE8496-88-33 12:13:00 Test Item Value Reference Range Interpretation Comments WBC (test code = WBC) 5.1 3.7-10.4 [facility]2014-05-05 12:13:00 Test Item Value Reference Range Interpretation Comments Magnesium Lvl (test code = Magnesium 1.8 1.8-2.4 Lvl) [facility] [id number] 12:13:00 Test Item Value Reference Range Interpretation Comments Phosphorus (test code = Phosphorus) 2.6 2.5-4.5 [facility] [id number] 12:13:00 Test Item Value Reference Range Interpretation Comments Globulin (test code = Globulin) 2.8 2.0-4.0 [place] 695474-05-05 12:13:00 Test Item Value Reference Range Interpretation Comments A/G Ratio (test code = A/G Ratio) 1.2 0.7-1.6 [place] 695474-05-05 12:13:00 Test Item Value Reference Range Interpretation Comments B/C Ratio (test code = B/C Ratio) 10 6-25 [place] 695474-05-05 12:13:00 Test Item Value Reference Range Interpretation Comments AGAP (test code = AGAP) 6.9 10.0-20.0 [place] 695474-05-05 12:13:00 Test Item Value Reference Range Interpretation Comments eGFR (test code = eGFR) 101 [place] 695474-05-05 12:13:00 Test Item Value Reference Range Interpretation Comments Glucose Lvl (test code = Glucose Lvl) 84 70-99 [place] 695474-05-05 12:13:00 Test Item Value Reference Range Interpretation Comments Potassium Lvl (test code = Potassium 3.9 3.5-5.1 Lvl) [place] 695474-05-05 12:13:00 Test Item Value Reference Range Interpretation Comments Sodium Lvl (test code = Sodium Lvl) 141 135-145 [facility]2014-05-05 12:13:00 Test Item Value Reference Range Interpretation Comments Creatinine Lvl (test code = Creatinine 0.7 0.5-1.4 Lvl) [facility]2014-05-05 12:13:00 Test Item Value Reference Range Interpretation Comments BUN (test code = BUN) 7 7-22 [place]95474-05-05 12:13:00 Test Item Value Reference Range Interpretation Comments Bili Total (test code = Bili Total) 0.3 0.2-1.3 [place] 695474-05-05 12:13:00 Test Item Value Reference Range Interpretation Comments Alk Phos (test code = Alk Phos) 71 39-136 [place] 695474-05-05 12:13:00 Test Item Value Reference Range Interpretation Comments AST (test code = AST) 21 See_Comment [Auto mated message] The system which ge nerated this result transmit ulysses reference range : <=37. The reference range was not used to interpr et this result as sharron l/abnormal. [facility]2014-05-05 12:13:00 Test Item Value Reference Range Interpretation Comments ALT (test code = ALT) 20 See_Comment [Auto mated message] The system which ge nerated this result transmit ulysses reference range : <=65. The reference range was not used to interpr et this result as sharron l/abnormal. [facility]2014-05-05 12:13:00 Test Item Value Reference Range Interpretation Comments Total Protein (test code = Total 6.1 6.4-8.4 Protein) [facility]2014-05-05 12:13:00 Test Item Value Reference Range Interpretation Comments CO2 (test code = CO2) 33 24-32 [facility]2014-05-05 12:13:00 Test Item Value Reference Range Interpretation Comments Albumin Lvl (test code = Albumin Lvl) 3.3 3.5-5.0 [facility]2014-05-05 12:13:00 Test Item Value Reference Range Interpretation Comments Calcium Lvl (test code = Calcium Lvl) 8.4 8.5-10.5 [facility]2014-05-05 12:13:00 Test Item Value Reference Range Interpretation Comments Chloride Lvl (test code = Chloride Lvl) 105 95-109 [facility]YvucciiRUOMIRIIPA1133-85-54 12:13:00 Test Item Value Reference Range Interpretation Comments Basophils # (test code 0.0 See_Comment [Aut omated message] The = Basophils #) system which generated this result tra nsmitted reference range : <=0.2. The reference r jamaica was not used to int erpret this result as normal/abnormal . [facility]ervilleAfxcgatFFXPMIVOUF5883-39-70 12:13:00 Test Item Value Reference Range Interpretation Comments Segs (test code = Segs) 63.5 45.0-75.0 [facility] [place]ervilleYacvxkeXJEGYVZXGW2513-70-04 12:13:00 Test Item Value Reference Range Interpretation Comments Monocytes # (test code 0.3 See_Comment [Aut omated message] The = Monocytes #) system which generated this result tra nsmitted reference range : <=0.8. The reference r jamaica was not used to int erpret this result as normal/abnormal . [facility]ervilleOxovavkPNYLHAREWW3952-25-01 12:13:00 Test Item Value Reference Range Interpretation Comments Basophils (test code = 0.2 See_Comment [Aut omated message] The Basophils) system which ge nerated this result tra nsmitted reference range : <=1.0. The reference r jamaica was not used to int erpret this result as normal/abnormal . [facility]ervilleEoynyjmJJAEINZFTS9122-06-80 12:13:00 Test Item Value Reference Range Interpretation Comments Lymphocytes # (test code = Lymphocytes 1.5 1.0-5.5 #) [facility] [place]ervilleOlmmtwiPHNXGCXLWN2261-22-25 12:13:00 Test Item Value Reference Range Interpretation Comments Segs-Bands # (test code = Segs-Bands #) 3.3 1.5-8.1 [facility] [place]ervilleBfiveyiVHRVUNEMGE1449-16-34 12:13:00 Test Item Value Reference Range Interpretation Comments Eosinophils # (test code 0.1 See_Comment [A utomated message] The = Eosinophils #) system wh h generated this result tra nsmitted reference range : <=0.5. The reference r jamaica was not used to int erpret this result as normal/abnormal . [facility]ervilleYwzckyhKNHKIGIWUN3723-59-67 12:13:00 Test Item Value Reference Range Interpretation Comments Lymphocytes (test code = Lymphocytes) 28.9 20.0-40.0 [facility] [place]ervilleWskgtioILFTUCXZRZ6966-50-78 12:13:00 Test Item Value Reference Range Interpretation Comments Monocytes (test code = Monocytes) 6.2 2.0-12.0 [facility] [place]ervilleXvuvnglVFGJZIQMPP7926-24-68 12:13:00 Test Item Value Reference Range Interpretation Comments Eosinophils (test code = 1.2 See_Comment [A utomated message] The Eosinophils) system which ge nerated this result tra nsmitted reference range : <=4.0. The reference r jamaica was not used to int erpret this result as normal/abnormal . [facility]ervilleKyxxxqnTKQRCLSWCO8426-31-40 12:13:00 Test Item Value Reference Range Interpretation Comments MCHC (test code = MCHC) 34.3 32.0-36.0 [facility] [place]ervilleIxodxyaLFZZARESUW9951-79-97 12:13:00 Test Item Value Reference Range Interpretation Comments RDW (test code = RDW) 16.5 11.5-14.5 [facility] [place]ervilleGegoiylTRWDRBHBFP7178-14-12 12:13:00 Test Item Value Reference Range Interpretation Comments MCH (test code = MCH) 31.5 pg 27.0-31.0 [facility] [place]ervilleQchsklgYLSBVWWQWM7775-35-33 12:13:00 Test Item Value Reference Range Interpretation Comments MCV (test code = MCV) 91.9 81.0-99.0 [facility] [place]ervilleArkcgxgTMOFJZOQJY8065-69-23 12:13:00 Test Item Value Reference Range Interpretation Comments Platelet (test code = Platelet) 177 133-450 [facility] [place]ervilleHijynwoRONKABEHER8911-90-39 12:13:00 Test Item Value Reference Range Interpretation Comments MPV (test code = MPV) 7.9 7.4-10.4 [facility] [place]ervilleCwydltlGOWZCJWHWF2779-81-85 12:13:00 Test Item Value Reference Range Interpretation Comments RBC (test code = RBC) 3.91 4.20-5.40 [facility] [place]ervilleOmkooneAYWCGVSCSZ5499-27-04 12:13:00 Test Item Value Reference Range Interpretation Comments Hct (test code = Hct) 35.9 36.0-48.0 [facility] [place]ervilleLenuqplEJDOCQTOOK9690-12-91 12:13:00 Test Item Value Reference Range Interpretation Comments Hgb (test code = Hgb) 12.3 12.0-16.0 [facility]ervilleArploynCUJEPNOMDD0693-70-28 12:13:00 Test Item Value Reference Range Interpretation Comments WBC (test code = WBC) 5.1 3.7-10.4 [facility]2014-05-05 12:13:00 Test Item Value Reference Range Interpretation Comments Magnesium Lvl (test code = Magnesium 1.8 1.8-2.4 Lvl) [facility]2014-05-05 12:13:00 Test Item Value Reference Range Interpretation Comments Phosphorus (test code = Phosphorus) 2.6 2.5-4.5 [facility]2014-05-05 12:13:00 Test Item Value Reference Range Interpretation Comments Globulin (test code = Globulin) 2.8 2.0-4.0 [facility]2014-05-05 12:13:00 Test Item Value Reference Range Interpretation Comments A/G Ratio (test code = A/G Ratio) 1.2 0.7-1.6 [facility]2014-05-05 12:13:00 Test Item Value Reference Range Interpretation Comments B/C Ratio (test code = B/C Ratio) 10 6-25 [facility]2014-05-05 12:13:00 Test Item Value Reference Range Interpretation Comments AGAP (test code = AGAP) 6.9 10.0-20.0 [place]95474-05-05 12:13:00 Test Item Value Reference Range Interpretation Comments eGFR (test code = eGFR) 101 [facility]2014-05-05 12:13:00 Test Item Value Reference Range Interpretation Comments Glucose Lvl (test code = Glucose Lvl) 84 70-99 [place] 695474-05-05 12:13:00 Test Item Value Reference Range Interpretation Comments Potassium Lvl (test code = Potassium 3.9 3.5-5.1 Lvl) [facility]2014-05-05 12:13:00 Test Item Value Reference Range Interpretation Comments Sodium Lvl (test code = Sodium Lvl) 141 135-145 [facility]2014-05-05 12:13:00 Test Item Value Reference Range Interpretation Comments Creatinine Lvl (test code = Creatinine 0.7 0.5-1.4 Lvl) [facility]2014-05-05 12:13:00 Test Item Value Reference Range Interpretation Comments BUN (test code = BUN) 7 7-22 [facility]2014-05-05 12:13:00 Test Item Value Reference Range Interpretation Comments Bili Total (test code = Bili Total) 0.3 0.2-1.3 [place] 695474-05-05 12:13:00 Test Item Value Reference Range Interpretation Comments Alk Phos (test code = Alk Phos) 71 39-136 [place] 695474-05-05 12:13:00 Test Item Value Reference Range Interpretation Comments AST (test code = AST) 21 See_Comment [Auto mated message] The system which ge nerated this result transmit ulysses reference range : <=37. The reference range was not used to interpr et this result as sharron l/abnormal. [place]95474-05-05 12:13:00 Test Item Value Reference Range Interpretation Comments ALT (test code = ALT) 20 See_Comment [Auto mated message] The system which ge nerated this result transmit ulysses reference range : <=65. The reference range was not used to interpr et this result as sharron l/abnormal. [facility]2014-05-05 12:13:00 Test Item Value Reference Range Interpretation Comments Total Protein (test code = Total 6.1 6.4-8.4 Protein) [place]95474-05-05 12:13:00 Test Item Value Reference Range Interpretation Comments CO2 (test code = CO2) 33 24-32 [place]95474-05-05 12:13:00 Test Item Value Reference Range Interpretation Comments Albumin Lvl (test code = Albumin Lvl) 3.3 3.5-5.0 [facility]2014-05-05 12:13:00 Test Item Value Reference Range Interpretation Comments Calcium Lvl (test code = Calcium Lvl) 8.4 8.5-10.5 [place]95474-05-05 12:13:00 Test Item Value Reference Range Interpretation Comments Chloride Lvl (test code = Chloride Lvl) 105 95-109 [facility]ervilleKzgblzsYDJYACCASU0973-64-00 12:13:00 Test Item Value Reference Range Interpretation Comments Basophils # (test code 0.0 See_Comment [Aut omated message] The = Basophils #) system which generated this result tra nsmitted reference range : <=0.2. The reference r jamaica was not used to int erpret this result as normal/abnormal . [place] [address]-05-05 12:13:00 Test Item Value Reference Range Interpretation Comments Segs (test code = Segs) 63.5 45.0-75.0 [facility] [place]ervilleFsyautuYSTEYOMOBL9383-24-47 12:13:00 Test Item Value Reference Range Interpretation Comments Monocytes # (test code 0.3 See_Comment [Aut omated message] The = Monocytes #) system which generated this result tra nsmitted reference range : <=0.8. The reference r jamaica was not used to int erpret this result as normal/abnormal . [facility]ervilleAqqgjmpXNZWNPKVLN9281-78-42 12:13:00 Test Item Value Reference Range Interpretation Comments Basophils (test code = 0.2 See_Comment [Aut omated message] The Basophils) system which ge nerated this result tra nsmitted reference range : <=1.0. The reference r jamaica was not used to int erpret this result as normal/abnormal . [facility]ervilleBjjaibfOPKTIXKHJU3559-63-11 12:13:00 Test Item Value Reference Range Interpretation Comments Lymphocytes # (test code = Lymphocytes 1.5 1.0-5.5 #) [facility]ervilleLiximycOSEPUHVDDE2601-52-60 12:13:00 Test Item Value Reference Range Interpretation Comments Segs-Bands # (test code = Segs-Bands #) 3.3 1.5-8.1 [facility]ervilleDcazkliGTXTFSWUND5850-72-85 12:13:00 Test Item Value Reference Range Interpretation Comments Eosinophils # (test code 0.1 See_Comment [A utomated message] The = Eosinophils #) system whic h generated this result tra nsmitted reference range : <=0.5. The reference r jamaica was not used to int erpret this result as normal/abnormal . [facility]ervilleGmdivhgVCVZOYJLIF8837-76-52 12:13:00 Test Item Value Reference Range Interpretation Comments Lymphocytes (test code = Lymphocytes) 28.9 20.0-40.0 [facility] [place]ervilleRkngmneRVXCSPSBBA5688-25-44 12:13:00 Test Item Value Reference Range Interpretation Comments Monocytes (test code = Monocytes) 6.2 2.0-12.0 [facility] [place]ervilleVdjfsmzVKPKKAJDID2700-59-30 12:13:00 Test Item Value Reference Range Interpretation Comments Eosinophils (test code = 1.2 See_Comment [A utomated message] The Eosinophils) system which ge nerated this result tra nsmitted reference range : <=4.0. The reference r jamaica was not used to int erpret this result as normal/abnormal . [facility]ervilleZtttyitIRAUNWFKOW1677-09-49 12:13:00 Test Item Value Reference Range Interpretation Comments MCHC (test code = MCHC) 34.3 32.0-36.0 [facility] [place]ervilleFqyffcmFXWIEAXKWH0696-63-32 12:13:00 Test Item Value Reference Range Interpretation Comments RDW (test code = RDW) 16.5 11.5-14.5 [facility] [place]ervilleWyynnqfXYZLVNJRQH0902-75-51 12:13:00 Test Item Value Reference Range Interpretation Comments MCH (test code = MCH) 31.5 pg 27.0-31.0 [facility] [place]ervilleZgdsonoSCFWLEMMAI1432-73-09 12:13:00 Test Item Value Reference Range Interpretation Comments MCV (test code = MCV) 91.9 81.0-99.0 [facility] [place]ervilleUcpywphAHFAMOZSED8129-75-31 12:13:00 Test Item Value Reference Range Interpretation Comments Platelet (test code = Platelet) 177 133-450 [facility] [place]ervilleBdnoursZXHTCPTXSK8215-30-41 12:13:00 Test Item Value Reference Range Interpretation Comments MPV (test code = MPV) 7.9 7.4-10.4 [facility] [place]ervilleDeuxcviJVRBZCQCMY4754-30-37 12:13:00 Test Item Value Reference Range Interpretation Comments RBC (test code = RBC) 3.91 4.20-5.40 [facility] [place]ervilleOlwezyuCSXYJWRZPH7016-38-98 12:13:00 Test Item Value Reference Range Interpretation Comments Hct (test code = Hct) 35.9 36.0-48.0 [facility] [place]ervilleIrqqgfcSGJSDWTXRL9101-90-83 12:13:00 Test Item Value Reference Range Interpretation Comments Hgb (test code = Hgb) 12.3 12.0-16.0 [facility]ervilleCvfhmpkFYWPEVQSMF5895-26-28 12:13:00 Test Item Value Reference Range Interpretation Comments WBC (test code = WBC) 5.1 3.7-10.4 [facility]2014-05-05 12:13:00 Test Item Value Reference Range Interpretation Comments Magnesium Lvl (test code = Magnesium 1.8 1.8-2.4 Lvl) [facility]2014-05-05 12:13:00 Test Item Value Reference Range Interpretation Comments Phosphorus (test code = Phosphorus) 2.6 2.5-4.5 [facility]2014-05-05 12:13:00 Test Item Value Reference Range Interpretation Comments Globulin (test code = Globulin) 2.8 2.0-4.0 [facility]2014-05-05 12:13:00 Test Item Value Reference Range Interpretation Comments A/G Ratio (test code = A/G Ratio) 1.2 0.7-1.6 [facility]2014-05-05 12:13:00 Test Item Value Reference Range Interpretation Comments B/C Ratio (test code = B/C Ratio) 10 6-25 [facility]2014-05-05 12:13:00 Test Item Value Reference Range Interpretation Comments AGAP (test code = AGAP) 6.9 10.0-20.0 [place]-05-05 12:13:00 Test Item Value Reference Range Interpretation Comments eGFR (test code = eGFR) 101 [place] 695474-05-05 12:13:00 Test Item Value Reference Range Interpretation Comments Glucose Lvl (test code = Glucose Lvl) 84 70-99 [place]95474-05-05 12:13:00 Test Item Value Reference Range Interpretation Comments Potassium Lvl (test code = Potassium 3.9 3.5-5.1 Lvl) [facility]2014-05-05 12:13:00 Test Item Value Reference Range Interpretation Comments Sodium Lvl (test code = Sodium Lvl) 141 135-145 [place]95474-05-05 12:13:00 Test Item Value Reference Range Interpretation Comments Creatinine Lvl (test code = Creatinine 0.7 0.5-1.4 Lvl) [place]95[place]-05-05 12:13:00 Test Item Value Reference Range Interpretation Comments BUN (test code = BUN) 7 7-22 [place] 695474-05-05 12:13:00 Test Item Value Reference Range Interpretation Comments Bili Total (test code = Bili Total) 0.3 0.2-1.3 [place]95474-05-05 12:13:00 Test Item Value Reference Range Interpretation Comments Alk Phos (test code = Alk Phos) 71 39-136 [place] 695474-05-05 12:13:00 Test Item Value Reference Range Interpretation Comments AST (test code = AST) 21 See_Comment [Auto mated message] The system which ge nerated this result transmit ulysses reference range : <=37. The reference range was not used to interpr et this result as sharron l/abnormal. [place] [address]-05-05 12:13:00 Test Item Value Reference Range Interpretation Comments ALT (test code = ALT) 20 See_Comment [Auto mated message] The system which ge nerated this result transmit ulysses reference range : <=65. The reference range was not used to interpr et this result as sharron l/abnormal. [place] [address]-05-05 12:13:00 Test Item Value Reference Range Interpretation Comments Total Protein (test code = Total 6.1 6.4-8.4 Protein) [facility]2014-05-05 12:13:00 Test Item Value Reference Range Interpretation Comments CO2 (test code = CO2) 33 24-32 [facility]2014-05-05 12:13:00 Test Item Value Reference Range Interpretation Comments Albumin Lvl (test code = Albumin Lvl) 3.3 3.5-5.0 [facility]2014-05-05 12:13:00 Test Item Value Reference Range Interpretation Comments Calcium Lvl (test code = Calcium Lvl) 8.4 8.5-10.5 [place]95[place]-05-05 12:13:00 Test Item Value Reference Range Interpretation Comments Chloride Lvl (test code = Chloride Lvl) 105 95-109 [facility]ervilleWnnvoxuIJLCHFPSPD3021-74-97 12:13:00 Test Item Value Reference Range Interpretation Comments Basophils # (test code 0.0 See_Comment [Aut omated message] The = Basophils #) system which generated this result tra nsmitted reference range : <=0.2. The reference r jamaica was not used to int erpret this result as normal/abnormal . [facility]ervilleKdaddooMSBIYALHRK9694-68-56 12:13:00 Test Item Value Reference Range Interpretation Comments Segs (test code = Segs) 63.5 45.0-75.0 [facility]ervillePeogxptCJHEKWJFEG9622-66-57 12:13:00 Test Item Value Reference Range Interpretation Comments Monocytes # (test code 0.3 See_Comment [Aut omated message] The = Monocytes #) system which generated this result tra nsmitted reference range : <=0.8. The reference r jamaica was not used to int erpret this result as normal/abnormal . [facility]ervilleCaqiawnOYZYXWLEDH1418-44-62 12:13:00 Test Item Value Reference Range Interpretation Comments Basophils (test code = 0.2 See_Comment [Aut omated message] The Basophils) system which ge nerated this result tra nsmitted reference range : <=1.0. The reference r jamaica was not used to int erpret this result as normal/abnormal . [facility]ervilleBlwffftRRUIMMWJYY4272-59-59 12:13:00 Test Item Value Reference Range Interpretation Comments Lymphocytes # (test code = Lymphocytes 1.5 1.0-5.5 #) [facility] [place]ervilleEcatoerTITTJSUBJM6301-76-37 12:13:00 Test Item Value Reference Range Interpretation Comments Segs-Bands # (test code = Segs-Bands #) 3.3 1.5-8.1 [facility] [place]ervilleKphmovkZIQPLMPJSX7769-34-05 12:13:00 Test Item Value Reference Range Interpretation Comments Eosinophils # (test code 0.1 See_Comment [A utomated message] The = Eosinophils #) system whic h generated this result tra nsmitted reference range : <=0.5. The reference r jamaica was not used to int erpret this result as normal/abnormal . [facility] [place]ervilleFsflulpFKQXRHHZFQ9827-37-83 12:13:00 Test Item Value Reference Range Interpretation Comments Lymphocytes (test code = Lymphocytes) 28.9 20.0-40.0 [facility]ervilleRvtdbxwVDMDVPZNQO2104-49-10 12:13:00 Test Item Value Reference Range Interpretation Comments Monocytes (test code = Monocytes) 6.2 2.0-12.0 [facility] [place]ervilleXjlfizlSLEDYRNTXC5585-12-41 12:13:00 Test Item Value Reference Range Interpretation Comments Eosinophils (test code = 1.2 See_Comment [A utomated message] The Eosinophils) system which ge nerated this result tra nsmitted reference range : <=4.0. The reference r jamaica was not used to int erpret this result as normal/abnormal . [facility]ervilleCdemphpHZPOMZEWCO4179-86-10 12:13:00 Test Item Value Reference Range Interpretation Comments MCHC (test code = MCHC) 34.3 32.0-36.0 [facility] [place]ervilleVkuczxwHWIMCFRJPU1332-70-46 12:13:00 Test Item Value Reference Range Interpretation Comments RDW (test code = RDW) 16.5 11.5-14.5 [facility] [place]ervilleXkxoqflIAXKCEGZHA6340-27-58 12:13:00 Test Item Value Reference Range Interpretation Comments MCH (test code = MCH) 31.5 pg 27.0-31.0 [facility] [place]ervilleXscqskiWKWAHXLDPH0156-47-78 12:13:00 Test Item Value Reference Range Interpretation Comments MCV (test code = MCV) 91.9 81.0-99.0 [facility] [place]ervilleLuffkkbVALQRMCIVD8578-01-13 12:13:00 Test Item Value Reference Range Interpretation Comments Platelet (test code = Platelet) 177 133-450 [facility] [place]ervilleMiapfstYOSOGORAAI2430-66-93 12:13:00 Test Item Value Reference Range Interpretation Comments MPV (test code = MPV) 7.9 7.4-10.4 [facility] [place]ervilleKjerqiyHAAVTRWJUZ8018-03-58 12:13:00 Test Item Value Reference Range Interpretation Comments RBC (test code = RBC) 3.91 4.20-5.40 [facility]ervilleOugjvdsGMBCXMVUMW7921-34-33 12:13:00 Test Item Value Reference Range Interpretation Comments Hct (test code = Hct) 35.9 36.0-48.0 [facility] [place]ervilleZivhyniSQGBWFCATO2364-82-17 12:13:00 Test Item Value Reference Range Interpretation Comments Hgb (test code = Hgb) 12.3 12.0-16.0 [facility] [place]ervilleGsfepwjZXQQMLTWXL6447-62-59 12:13:00 Test Item Value Reference Range Interpretation Comments WBC (test code = WBC) 5.1 3.7-10.4 [facility]2014-05-05 12:13:00 Test Item Value Reference Range Interpretation Comments Magnesium Lvl (test code = Magnesium 1.8 1.8-2.4 Lvl) [facility]2014-05-05 12:13:00 Test Item Value Reference Range Interpretation Comments Phosphorus (test code = Phosphorus) 2.6 2.5-4.5 [facility]2014-05-05 12:13:00 Test Item Value Reference Range Interpretation Comments Globulin (test code = Globulin) 2.8 2.0-4.0 [facility]2014-05-05 12:13:00 Test Item Value Reference Range Interpretation Comments A/G Ratio (test code = A/G Ratio) 1.2 0.7-1.6 [facility]2014-05-05 12:13:00 Test Item Value Reference Range Interpretation Comments B/C Ratio (test code = B/C Ratio) 10 6-25 [facility]2014-05-05 12:13:00 Test Item Value Reference Range Interpretation Comments AGAP (test code = AGAP) 6.9 10.0-20.0 [facility]2014-05-05 12:13:00 Test Item Value Reference Range Interpretation Comments eGFR (test code = eGFR) 101 [facility]2014-05-05 12:13:00 Test Item Value Reference Range Interpretation Comments Glucose Lvl (test code = Glucose Lvl) 84 70-99 [facility]2014-05-05 12:13:00 Test Item Value Reference Range Interpretation Comments Potassium Lvl (test code = Potassium 3.9 3.5-5.1 Lvl) [facility]2014-05-05 12:13:00 Test Item Value Reference Range Interpretation Comments Sodium Lvl (test code = Sodium Lvl) 141 135-145 [facility]2014-05-05 12:13:00 Test Item Value Reference Range Interpretation Comments Creatinine Lvl (test code = Creatinine 0.7 0.5-1.4 Lvl) [facility]2014-05-05 12:13:00 Test Item Value Reference Range Interpretation Comments BUN (test code = BUN) 7 7-22 [place]95474-05-05 12:13:00 Test Item Value Reference Range Interpretation Comments Bili Total (test code = Bili Total) 0.3 0.2-1.3 [place] 695474-05-05 12:13:00 Test Item Value Reference Range Interpretation Comments Alk Phos (test code = Alk Phos) 71 39-136 [facility]2014-05-05 12:13:00 Test Item Value Reference Range Interpretation Comments AST (test code = AST) 21 See_Comment [Auto mated message] The system which ge nerated this result transmit ulysses reference range : <=37. The reference range was not used to interpr et this result as sharron l/abnormal. [facility]2014-05-05 12:13:00 Test Item Value Reference Range Interpretation Comments ALT (test code = ALT) 20 See_Comment [Auto mated message] The system which ge nerated this result transmit ulysses reference range : <=65. The reference range was not used to interpr et this result as sharron l/abnormal. [facility]2014-05-05 12:13:00 Test Item Value Reference Range Interpretation Comments Total Protein (test code = Total 6.1 6.4-8.4 Protein) [place] 695474-05-05 12:13:00 Test Item Value Reference Range Interpretation Comments CO2 (test code = CO2) 33 24-32 [place] 695474-05-05 12:13:00 Test Item Value Reference Range Interpretation Comments Albumin Lvl (test code = Albumin Lvl) 3.3 3.5-5.0 [facility]2014-05-05 12:13:00 Test Item Value Reference Range Interpretation Comments Calcium Lvl (test code = Calcium Lvl) 8.4 8.5-10.5 [facility]2014-05-05 12:13:00 Test Item Value Reference Range Interpretation Comments Chloride Lvl (test code = Chloride Lvl) 105 95-109 [facility]KwscozbUYUQPJUZSP9377-77-38 12:13:00 Test Item Value Reference Range Interpretation Comments Basophils # (test code 0.0 See_Comment [Aut omated message] The = Basophils #) system which generated this result tra nsmitted reference range : <=0.2. The reference r jamaica was not used to int erpret this result as normal/abnormal . [facility] [place]LwuqctqPVITWLMOVD6438-13-39 12:13:00 Test Item Value Reference Range Interpretation Comments Segs (test code = Segs) 63.5 45.0-75.0 [facility] [place]BlvuytsQBVAVDORNF0535-18-50 12:13:00 Test Item Value Reference Range Interpretation Comments Monocytes # (test code 0.3 See_Comment [Aut omated message] The = Monocytes #) system which generated this result tra nsmitted reference range : <=0.8. The reference r jamaica was not used to int erpret this result as normal/abnormal . [facility] [place]CxbzmxjZZLHZHMMYU2881-27-18 12:13:00 Test Item Value Reference Range Interpretation Comments Basophils (test code = 0.2 See_Comment [Aut omated message] The Basophils) system which ge nerated this result tra nsmitted reference range : <=1.0. The reference r jamaica was not used to int erpret this result as normal/abnormal . [facility] [place]ervilleFwjvczwWIRUAJLRHV1355-99-07 12:13:00 Test Item Value Reference Range Interpretation Comments Lymphocytes # (test code = Lymphocytes 1.5 1.0-5.5 #) [facility] [place]PyyvljhZSMKMTELGG8776-05-78 12:13:00 Test Item Value Reference Range Interpretation Comments Segs-Bands # (test code = Segs-Bands #) 3.3 1.5-8.1 [facility] [place]EyvmbfxJUMCQTNDYL3201-70-50 12:13:00 Test Item Value Reference Range Interpretation Comments Eosinophils # (test code 0.1 See_Comment [A utomated message] The = Eosinophils #) system whic h generated this result tra nsmitted reference range : <=0.5. The reference r jamaica was not used to int erpret this result as normal/abnormal . [facility] [place]ervilleNchswyfKSIOYYVZVF8540-69-04 12:13:00 Test Item Value Reference Range Interpretation Comments Lymphocytes (test code = Lymphocytes) 28.9 20.0-40.0 [facility] [place]ervilleIndfmywWORFZMCCFI4451-53-03 12:13:00 Test Item Value Reference Range Interpretation Comments Monocytes (test code = Monocytes) 6.2 2.0-12.0 [facility] [place]ervilleSyqiscfCFTNRQKYLG2153-68-03 12:13:00 Test Item Value Reference Range Interpretation Comments Eosinophils (test code = 1.2 See_Comment [A utomated message] The Eosinophils) system which ge nerated this result tra nsmitted reference range : <=4.0. The reference r jamaica was not used to int erpret this result as normal/abnormal . [facility] [place]ervilleObonzsvAFHCBBSLLT6203-11-48 12:13:00 Test Item Value Reference Range Interpretation Comments MCHC (test code = MCHC) 34.3 32.0-36.0 [facility] [place]ervilleVynpkeaGLBSDDWISM1679-62-37 12:13:00 Test Item Value Reference Range Interpretation Comments RDW (test code = RDW) 16.5 11.5-14.5 [facility] [place]ervilleEjiutzuRMMMOFDAME1176-79-55 12:13:00 Test Item Value Reference Range Interpretation Comments MCH (test code = MCH) 31.5 pg 27.0-31.0 [facility] [place]ervilleHdmbeufIKOASEOUIZ4518-13-66 12:13:00 Test Item Value Reference Range Interpretation Comments MCV (test code = MCV) 91.9 81.0-99.0 [facility] [place]ervilleUtyptcgQVDJWTHEST9072-35-76 12:13:00 Test Item Value Reference Range Interpretation Comments Platelet (test code = Platelet) 177 133-450 [facility] [place]ervilleLeawbruZMKTVCSHPU8828-36-08 12:13:00 Test Item Value Reference Range Interpretation Comments MPV (test code = MPV) 7.9 7.4-10.4 [facility] [place]ervilleXflsfevSVKTDZIECH0671-85-56 12:13:00 Test Item Value Reference Range Interpretation Comments RBC (test code = RBC) 3.91 4.20-5.40 [facility] [place]ervilleGmmydsxBVUYJULMTE3487-41-39 12:13:00 Test Item Value Reference Range Interpretation Comments Hct (test code = Hct) 35.9 36.0-48.0 [facility] [place]ervilleHmtdrkjWFYTZJMHNK8379-68-69 12:13:00 Test Item Value Reference Range Interpretation Comments Hgb (test code = Hgb) 12.3 12.0-16.0 [facility] [place]ervilleAgskjdgDAZDXZAVMD5317-24-07 12:13:00 Test Item Value Reference Range Interpretation Comments WBC (test code = WBC) 5.1 3.7-10.4 [facility]2014-05-05 12:13:00 Test Item Value Reference Range Interpretation Comments Magnesium Lvl (test code = Magnesium 1.8 1.8-2.4 Lvl) [facility]2014-05-05 12:13:00 Test Item Value Reference Range Interpretation Comments Phosphorus (test code = Phosphorus) 2.6 2.5-4.5 [facility]2014-05-05 12:13:00 Test Item Value Reference Range Interpretation Comments Globulin (test code = Globulin) 2.8 2.0-4.0 [facility]2014-05-05 12:13:00 Test Item Value Reference Range Interpretation Comments A/G Ratio (test code = A/G Ratio) 1.2 0.7-1.6 [facility]2014-05-05 12:13:00 Test Item Value Reference Range Interpretation Comments B/C Ratio (test code = B/C Ratio) 10 6-25 [facility]2014-05-05 12:13:00 Test Item Value Reference Range Interpretation Comments AGAP (test code = AGAP) 6.9 10.0-20.0 [facility]2014-05-05 12:13:00 Test Item Value Reference Range Interpretation Comments eGFR (test code = eGFR) 101 [facility]2014-05-05 12:13:00 Test Item Value Reference Range Interpretation Comments Glucose Lvl (test code = Glucose Lvl) 84 70-99 [facility]2014-05-05 12:13:00 Test Item Value Reference Range Interpretation Comments Potassium Lvl (test code = Potassium 3.9 3.5-5.1 Lvl) [facility]2014-05-05 12:13:00 Test Item Value Reference Range Interpretation Comments Sodium Lvl (test code = Sodium Lvl) 141 135-145 [facility]2014-05-05 12:13:00 Test Item Value Reference Range Interpretation Comments Creatinine Lvl (test code = Creatinine 0.7 0.5-1.4 Lvl) [facility]2014-05-05 12:13:00 Test Item Value Reference Range Interpretation Comments BUN (test code = BUN) 7 7-22 [facility]2014-05-05 12:13:00 Test Item Value Reference Range Interpretation Comments Bili Total (test code = Bili Total) 0.3 0.2-1.3 [place] 695474-05-05 12:13:00 Test Item Value Reference Range Interpretation Comments Alk Phos (test code = Alk Phos) 71 39-136 [place] 695474-05-05 12:13:00 Test Item Value Reference Range Interpretation Comments AST (test code = AST) 21 See_Comment [Auto mated message] The system which ge nerated this result transmit ulysses reference range : <=37. The reference range was not used to interpr et this result as sharron l/abnormal. [place]95474-05-05 12:13:00 Test Item Value Reference Range Interpretation Comments ALT (test code = ALT) 20 See_Comment [Auto mated message] The system which ge nerated this result transmit ulysses reference range : <=65. The reference range was not used to interpr et this result as sharron l/abnormal. [facility]2014-05-05 12:13:00 Test Item Value Reference Range Interpretation Comments Total Protein (test code = Total 6.1 6.4-8.4 Protein) [facility]2014-05-05 12:13:00 Test Item Value Reference Range Interpretation Comments CO2 (test code = CO2) 33 24-32 [place] 695474-05-05 12:13:00 Test Item Value Reference Range Interpretation Comments Albumin Lvl (test code = Albumin Lvl) 3.3 3.5-5.0 [place] 695474-05-05 12:13:00 Test Item Value Reference Range Interpretation Comments Calcium Lvl (test code = Calcium Lvl) 8.4 8.5-10.5 [facility]2014-05-05 12:13:00 Test Item Value Reference Range Interpretation Comments Chloride Lvl (test code = Chloride Lvl) 105 95-109 [facility]OcnbscgTWGWWJIUOM4565-24-57 12:13:00 Test Item Value Reference Range Interpretation Comments Basophils # (test code 0.0 See_Comment [Aut omated message] The = Basophils #) system which generated this result tra nsmitted reference range : <=0.2. The reference r jamaica was not used to int erpret this result as normal/abnormal . [facility]ervilleHrsrjgrLRSOMJBREN3985-38-50 12:13:00 Test Item Value Reference Range Interpretation Comments Segs (test code = Segs) 63.5 45.0-75.0 [facility] [place]ervilleLnztuctQGFVICJNZP0436-36-79 12:13:00 Test Item Value Reference Range Interpretation Comments Monocytes # (test code 0.3 See_Comment [Aut omated message] The = Monocytes #) system which generated this result tra nsmitted reference range : <=0.8. The reference r jamaica was not used to int erpret this result as normal/abnormal . [facility]ervilleFacumbpPCYCOYZMAI6289-18-46 12:13:00 Test Item Value Reference Range Interpretation Comments Basophils (test code = 0.2 See_Comment [Aut omated message] The Basophils) system which ge nerated this result tra nsmitted reference range : <=1.0. The reference r jamaica was not used to int erpret this result as normal/abnormal . [facility] [place]ervilleHaaitroORBTBZJZCO6300-16-13 12:13:00 Test Item Value Reference Range Interpretation Comments Lymphocytes # (test code = Lymphocytes 1.5 1.0-5.5 #) [facility]ervilleIehelsbJNQFNTANHD9403-97-97 12:13:00 Test Item Value Reference Range Interpretation Comments Segs-Bands # (test code = Segs-Bands #) 3.3 1.5-8.1 [facility]ervilleBfdbgiiUZYVSUJIPK1142-14-29 12:13:00 Test Item Value Reference Range Interpretation Comments Eosinophils # (test code 0.1 See_Comment [A utomated message] The = Eosinophils #) system whic h generated this result tra nsmitted reference range : <=0.5. The reference r jamaica was not used to int erpret this result as normal/abnormal . [facility]ervilleGtqwoczWJATBODNXF2481-56-90 12:13:00 Test Item Value Reference Range Interpretation Comments Lymphocytes (test code = Lymphocytes) 28.9 20.0-40.0 [facility] [place]ervilleQdmfavtWZMYDTGNMX8591-43-04 12:13:00 Test Item Value Reference Range Interpretation Comments Monocytes (test code = Monocytes) 6.2 2.0-12.0 [facility] [place]ervilleZafajoqFAPUKPHCIK3995-54-63 12:13:00 Test Item Value Reference Range Interpretation Comments Eosinophils (test code = 1.2 See_Comment [A utomated message] The Eosinophils) system which ge nerated this result tra nsmitted reference range : <=4.0. The reference r jamaica was not used to int erpret this result as normal/abnormal . [facility]ervilleAjhpjweYZTLCTWKLH9383-08-71 12:13:00 Test Item Value Reference Range Interpretation Comments MCHC (test code = MCHC) 34.3 32.0-36.0 [facility] [place]ervilleOgemiagIOQCQCHZYN7844-42-19 12:13:00 Test Item Value Reference Range Interpretation Comments RDW (test code = RDW) 16.5 11.5-14.5 [facility]ervilleRmzuoioJZBDCTJUZG7339-16-84 12:13:00 Test Item Value Reference Range Interpretation Comments MCH (test code = MCH) 31.5 pg 27.0-31.0 [facility] [place]ervillePfxnbjsJUGPCHFVPD9983-48-02 12:13:00 Test Item Value Reference Range Interpretation Comments MCV (test code = MCV) 91.9 81.0-99.0 [facility] [place]ervilleSmahvwuVUDNMMDAWT0350-57-76 12:13:00 Test Item Value Reference Range Interpretation Comments Platelet (test code = Platelet) 177 133-450 [facility] [place]ervilleYgnajdaRJWNQYHNRP1976-12-21 12:13:00 Test Item Value Reference Range Interpretation Comments MPV (test code = MPV) 7.9 7.4-10.4 [facility]ervilleZjlgzkmXNSIOFALOU2517-87-53 12:13:00 Test Item Value Reference Range Interpretation Comments RBC (test code = RBC) 3.91 4.20-5.40 [facility]ervilleMkdwcatFVQVPWVXKD1554-91-73 12:13:00 Test Item Value Reference Range Interpretation Comments Hct (test code = Hct) 35.9 36.0-48.0 [facility]ervilleEibvtheNQTCOHZVPM8888-27-97 12:13:00 Test Item Value Reference Range Interpretation Comments Hgb (test code = Hgb) 12.3 12.0-16.0 [facility]MgfwiygMGIAQMEJIR4581-70-[facility] 12:13:00 Test Item Value Reference Range Interpretation Comments WBC (test code = WBC) 5.1 3.7-10.4 [facility]2014-05-05 12:13:00 Test Item Value Reference Range Interpretation Comments Magnesium Lvl (test code = Magnesium 1.8 1.8-2.4 Lvl) [facility]2014-05-05 12:13:00 Test Item Value Reference Range Interpretation Comments Phosphorus (test code = Phosphorus) 2.6 2.5-4.5 [facility]2014-05-05 12:13:00 Test Item Value Reference Range Interpretation Comments Globulin (test code = Globulin) 2.8 2.0-4.0 [facility]2014-05-05 12:13:00 Test Item Value Reference Range Interpretation Comments A/G Ratio (test code = A/G Ratio) 1.2 0.7-1.6 [facility]2014-05-05 12:13:00 Test Item Value Reference Range Interpretation Comments B/C Ratio (test code = B/C Ratio) 10 6-25 [facility]2014-05-05 12:13:00 Test Item Value Reference Range Interpretation Comments AGAP (test code = AGAP) 6.9 10.0-20.0 [facility]2014-05-05 12:13:00 Test Item Value Reference Range Interpretation Comments eGFR (test code = eGFR) 101 [facility]2014-05-05 12:13:00 Test Item Value Reference Range Interpretation Comments Glucose Lvl (test code = Glucose Lvl) 84 70-99 [facility]2014-05-05 12:13:00 Test Item Value Reference Range Interpretation Comments Potassium Lvl (test code = Potassium 3.9 3.5-5.1 Lvl) [facility]2014-05-05 12:13:00 Test Item Value Reference Range Interpretation Comments Sodium Lvl (test code = Sodium Lvl) 141 135-145 [facility]2014-05-05 12:13:00 Test Item Value Reference Range Interpretation Comments Creatinine Lvl (test code = Creatinine 0.7 0.5-1.4 Lvl) [facility]2014-05-05 12:13:00 Test Item Value Reference Range Interpretation Comments BUN (test code = BUN) 7 7-22 [facility]2014-05-05 12:13:00 Test Item Value Reference Range Interpretation Comments Bili Total (test code = Bili Total) 0.3 0.2-1.3 [facility]2014-05-05 12:13:00 Test Item Value Reference Range Interpretation Comments Alk Phos (test code = Alk Phos) 71 39-136 [facility]2014-05-05 12:13:00 Test Item Value Reference Range Interpretation Comments AST (test code = AST) 21 See_Comment [Auto mated message] The system which ge nerated this result transmit ulysses reference range : <=37. The reference range was not used to interpr et this result as sharron l/abnormal. [facility]2014-05-05 12:13:00 Test Item Value Reference Range Interpretation Comments ALT (test code = ALT) 20 See_Comment [Auto mated message] The system which ge nerated this result transmit ulysses reference range : <=65. The reference range was not used to interpr et this result as sharron l/abnormal. [facility]2014-05-05 12:13:00 Test Item Value Reference Range Interpretation Comments Total Protein (test code = Total 6.1 6.4-8.4 Protein) [facility]2014-05-05 12:13:00 Test Item Value Reference Range Interpretation Comments CO2 (test code = CO2) 33 24-32 [facility]2014-05-05 12:13:00 Test Item Value Reference Range Interpretation Comments Albumin Lvl (test code = Albumin Lvl) 3.3 3.5-5.0 [facility]2014-05-05 12:13:00 Test Item Value Reference Range Interpretation Comments Calcium Lvl (test code = Calcium Lvl) 8.4 8.5-10.5 [facility]2014-05-05 12:13:00 Test Item Value Reference Range Interpretation Comments Chloride Lvl (test code = Chloride Lvl) 105 95-109 [facility]ervilleNyxlqlgNWGVXCBEDF9040-51-99 12:13:00 Test Item Value Reference Range Interpretation Comments Basophils # (test code 0.0 See_Comment [Aut omated message] The = Basophils #) system which generated this result tra nsmitted reference range : <=0.2. The reference r jamaica was not used to int erpret this result as normal/abnormal . [facility] [place]ervilleSdynxkwAUBKHKNSZO0654-67-91 12:13:00 Test Item Value Reference Range Interpretation Comments Segs (test code = Segs) 63.5 45.0-75.0 [facility] [place]ervilleKpvwkpnBTVZPWNUVL2893-16-89 12:13:00 Test Item Value Reference Range Interpretation Comments Monocytes # (test code 0.3 See_Comment [Aut omated message] The = Monocytes #) system which generated this result tra nsmitted reference range : <=0.8. The reference r jamaica was not used to int erpret this result as normal/abnormal . [facility]ervilleJdckhnlHKJJVPOSEE7911-70-19 12:13:00 Test Item Value Reference Range Interpretation Comments Basophils (test code = 0.2 See_Comment [Aut omated message] The Basophils) system which ge nerated this result tra nsmitted reference range : <=1.0. The reference r jamaica was not used to int erpret this result as normal/abnormal . [facility] [place]ervilleXmraeymWJVZLKWGWU9171-05-32 12:13:00 Test Item Value Reference Range Interpretation Comments Lymphocytes # (test code = Lymphocytes 1.5 1.0-5.5 #) [facility] [place]ervilleYdssfneTYHBICEOUF2572-81-40 12:13:00 Test Item Value Reference Range Interpretation Comments Segs-Bands # (test code = Segs-Bands #) 3.3 1.5-8.1 [facility] [place]ervilleFqkidjcNSNXOIDBJG3453-66-66 12:13:00 Test Item Value Reference Range Interpretation Comments Eosinophils # (test code 0.1 See_Comment [A utomated message] The = Eosinophils #) system whic h generated this result tra nsmitted reference range : <=0.5. The reference r jamaica was not used to int erpret this result as normal/abnormal . [facility] [place]ervilleDkgyptjZVQJDIWWMJ9186-11-00 12:13:00 Test Item Value Reference Range Interpretation Comments Lymphocytes (test code = Lymphocytes) 28.9 20.0-40.0 [facility] [place]ervilleMcpiavnSESEEBRHFB2072-51-16 12:13:00 Test Item Value Reference Range Interpretation Comments Monocytes (test code = Monocytes) 6.2 2.0-12.0 [facility] [place]ervilleMjwoxrcSFAHQOELJE2181-69-52 12:13:00 Test Item Value Reference Range Interpretation Comments Eosinophils (test code = 1.2 See_Comment [A utomated message] The Eosinophils) system which ge nerated this result tra nsmitted reference range : <=4.0. The reference r jamaica was not used to int erpret this result as normal/abnormal . [facility]ervilleNzxujjfLLAPSASLCH6268-13-27 12:13:00 Test Item Value Reference Range Interpretation Comments MCHC (test code = MCHC) 34.3 32.0-36.0 [facility] [place]ervilleQfjuiukMCVNORYFIV1006-23-19 12:13:00 Test Item Value Reference Range Interpretation Comments RDW (test code = RDW) 16.5 11.5-14.5 [facility] [place]ervilleQffafjeQNIIWWIURP3333-74-62 12:13:00 Test Item Value Reference Range Interpretation Comments MCH (test code = MCH) 31.5 pg 27.0-31.0 [facility] [place]ervilleMskmjqkHQSKKFSFHO7869-89-77 12:13:00 Test Item Value Reference Range Interpretation Comments MCV (test code = MCV) 91.9 81.0-99.0 [facility] [place]ervilleKgrnavbRQUQNSSRTG0561-87-75 12:13:00 Test Item Value Reference Range Interpretation Comments Platelet (test code = Platelet) 177 133-450 [facility] [place]ervilleTppbnhmXJTLVGPTMN1196-91-50 12:13:00 Test Item Value Reference Range Interpretation Comments MPV (test code = MPV) 7.9 7.4-10.4 [facility] [place]ervilleVtikejfLNVADVOQAI8844-89-58 12:13:00 Test Item Value Reference Range Interpretation Comments RBC (test code = RBC) 3.91 4.20-5.40 [facility] [place]ervilleWfjcohsWKONGWAGBR6788-60-21 12:13:00 Test Item Value Reference Range Interpretation Comments Hct (test code = Hct) 35.9 36.0-48.0 [facility] [place]ervilleMidoipiBYPOUWBWBV9840-09-25 12:13:00 Test Item Value Reference Range Interpretation Comments Hgb (test code = Hgb) 12.3 12.0-16.0 [facility]ervilleEkxezsoHONQAAXXLR7832-49-73 12:13:00 Test Item Value Reference Range Interpretation Comments WBC (test code = WBC) 5.1 3.7-10.4 [facility]2014-05-05 12:13:00 Test Item Value Reference Range Interpretation Comments Magnesium Lvl (test code = Magnesium 1.8 1.8-2.4 Lvl) [facility]2014-05-05 12:13:00 Test Item Value Reference Range Interpretation Comments Phosphorus (test code = Phosphorus) 2.6 2.5-4.5 [facility]2014-05-05 12:13:00 Test Item Value Reference Range Interpretation Comments Globulin (test code = Globulin) 2.8 2.0-4.0 [facility]2014-05-05 12:13:00 Test Item Value Reference Range Interpretation Comments A/G Ratio (test code = A/G Ratio) 1.2 0.7-1.6 [facility]2014-05-05 12:13:00 Test Item Value Reference Range Interpretation Comments B/C Ratio (test code = B/C Ratio) 10 6-25 [facility]2014-05-05 12:13:00 Test Item Value Reference Range Interpretation Comments AGAP (test code = AGAP) 6.9 10.0-20.0 [facility]2014-05-05 12:13:00 Test Item Value Reference Range Interpretation Comments eGFR (test code = eGFR) 101 [facility]2014-05-05 12:13:00 Test Item Value Reference Range Interpretation Comments Glucose Lvl (test code = Glucose Lvl) 84 70-99 [facility]2014-05-05 12:13:00 Test Item Value Reference Range Interpretation Comments Potassium Lvl (test code = Potassium 3.9 3.5-5.1 Lvl) [facility]2014-05-05 12:13:00 Test Item Value Reference Range Interpretation Comments Sodium Lvl (test code = Sodium Lvl) 141 135-145 [facility]2014-05-05 12:13:00 Test Item Value Reference Range Interpretation Comments Creatinine Lvl (test code = Creatinine 0.7 0.5-1.4 Lvl) [facility]2014-05-05 12:13:00 Test Item Value Reference Range Interpretation Comments BUN (test code = BUN) 7 7-22 [facility]2014-05-05 12:13:00 Test Item Value Reference Range Interpretation Comments Bili Total (test code = Bili Total) 0.3 0.2-1.3 [facility]2014-05-05 12:13:00 Test Item Value Reference Range Interpretation Comments Alk Phos (test code = Alk Phos) 71 39-136 [facility]2014-05-05 12:13:00 Test Item Value Reference Range Interpretation Comments AST (test code = AST) 21 See_Comment [Auto mated message] The system which ge nerated this result transmit ulysses reference range : <=37. The reference range was not used to interpr et this result as sharron l/abnormal. [facility]2014-05-05 12:13:00 Test Item Value Reference Range Interpretation Comments ALT (test code = ALT) 20 See_Comment [Auto mated message] The system which ge nerated this result transmit ulysses reference range : <=65. The reference range was not used to interpr et this result as sharron l/abnormal. [facility]2014-05-05 12:13:00 Test Item Value Reference Range Interpretation Comments Total Protein (test code = Total 6.1 6.4-8.4 Protein) [facility]2014-05-05 12:13:00 Test Item Value Reference Range Interpretation Comments CO2 (test code = CO2) 33 24-32 [facility]2014-05-05 12:13:00 Test Item Value Reference Range Interpretation Comments Albumin Lvl (test code = Albumin Lvl) 3.3 3.5-5.0 [facility]2014-05-05 12:13:00 Test Item Value Reference Range Interpretation Comments Calcium Lvl (test code = Calcium Lvl) 8.4 8.5-10.5 [facility]2014-05-05 12:13:00 Test Item Value Reference Range Interpretation Comments Chloride Lvl (test code = Chloride Lvl) 105 95-109 [facility]EahckjiXWGMPKHSQH0038-54-74 12:13:00 Test Item Value Reference Range Interpretation Comments Basophils # (test code 0.0 See_Comment [Aut omated message] The = Basophils #) system which generated this result tra nsmitted reference range : <=0.2. The reference r jamaica was not used to int erpret this result as normal/abnormal . [facility]NhpijwpVBKKIFSLQW2093-15-27 12:13:00 Test Item Value Reference Range Interpretation Comments Segs (test code = Segs) 63.5 45.0-75.0 [facility] [place]ervilleYxuparsZUNKUYQRUO6656-19-69 12:13:00 Test Item Value Reference Range Interpretation Comments Monocytes # (test code 0.3 See_Comment [Aut omated message] The = Monocytes #) system which generated this result tra nsmitted reference range : <=0.8. The reference r jamaica was not used to int erpret this result as normal/abnormal . [facility] [place]QwrjjqjBGBYMCFMGP3035-63-91 12:13:00 Test Item Value Reference Range Interpretation Comments Basophils (test code = 0.2 See_Comment [Aut omated message] The Basophils) system which ge nerated this result tra nsmitted reference range : <=1.0. The reference r jamaica was not used to int erpret this result as normal/abnormal . [facility] [place]CgrcaewFPEOBGQFWJ7523-04-63 12:13:00 Test Item Value Reference Range Interpretation Comments Lymphocytes # (test code = Lymphocytes 1.5 1.0-5.5 #) [facility] [place]VwohwjtGOKXWIVZRO4726-60-49 12:13:00 Test Item Value Reference Range Interpretation Comments Segs-Bands # (test code = Segs-Bands #) 3.3 1.5-8.1 [facility] [place]XmqdyduKWJRNRHDLE3920-12-47 12:13:00 Test Item Value Reference Range Interpretation Comments Eosinophils # (test code 0.1 See_Comment [A utomated message] The = Eosinophils #) system [facility] h generated this result tra nsmitted reference range : <=0.5. The reference r jamaica was not used to int erpret this result as normal/abnormal . [facility] [place]ervilleIykracyLONUZHHASO2190-02-77 12:13:00 Test Item Value Reference Range Interpretation Comments Lymphocytes (test code = Lymphocytes) 28.9 20.0-40.0 [facility] [place]ervilleOnlhwgqFMTVDGFCXW2361-61-31 12:13:00 Test Item Value Reference Range Interpretation Comments Monocytes (test code = Monocytes) 6.2 2.0-12.0 [facility] [place]PoxpgyrWCMJFFRQBQ5892-48-23 12:13:00 Test Item Value Reference Range Interpretation Comments Eosinophils (test code = 1.2 See_Comment [A utomated message] The Eosinophils) system which ge nerated this result tra nsmitted reference range : <=4.0. The reference r jamaica was not used to int erpret this result as normal/abnormal . [facility] [place]ervilleVosmlxeIHLLBJMYIU8975-20-50 12:13:00 Test Item Value Reference Range Interpretation Comments MCHC (test code = MCHC) 34.3 32.0-36.0 [facility] [place]ervilleAfzczibMCGPGQMOOE3977-24-85 12:13:00 Test Item Value Reference Range Interpretation Comments RDW (test code = RDW) 16.5 11.5-14.5 [facility] [place]PwyxmupXTHZUTWMKE5531-07-09 12:13:00 Test Item Value Reference Range Interpretation Comments MCH (test code = MCH) 31.5 pg 27.0-31.0 [facility] [place]KfozgtqMQFNUPQFJG2564-74-24 12:13:00 Test Item Value Reference Range Interpretation Comments MCV (test code = MCV) 91.9 81.0-99.0 [facility] [place]ervilleImcuoaiANLPAFFQZF5348-86-53 12:13:00 Test Item Value Reference Range Interpretation Comments Platelet (test code = Platelet) 177 133-450 [facility] [place]ervilleJvikcgkXMIMZSNVRL7608-23-73 12:13:00 Test Item Value Reference Range Interpretation Comments MPV (test code = MPV) 7.9 7.4-10.4 [facility] [place]ervilleVthhfudMWNIQMVPYH3836-24-52 12:13:00 Test Item Value Reference Range Interpretation Comments RBC (test code = RBC) 3.91 4.20-5.40 [facility] [place]ervilleSpdsfczWKUPGAINBH0343-55-12 12:13:00 Test Item Value Reference Range Interpretation Comments Hct (test code = Hct) 35.9 36.0-48.0 [facility] [place]ervilleIrgkoaoIIQCBPWWPS4866-56-82 12:13:00 Test Item Value Reference Range Interpretation Comments Hgb (test code = Hgb) 12.3 12.0-16.0 [facility] [place]ervilleCqfjawgLHARDXVLTQ0917-29-30 12:13:00 Test Item Value Reference Range Interpretation Comments WBC (test code = WBC) 5.1 3.7-10.4 [facility]2014-05-05 12:13:00 Test Item Value Reference Range Interpretation Comments Magnesium Lvl (test code = Magnesium 1.8 1.8-2.4 Lvl) [facility]2014-05-05 12:13:00 Test Item Value Reference Range Interpretation Comments Phosphorus (test code = Phosphorus) 2.6 2.5-4.5 [facility]2014-05-05 12:13:00 Test Item Value Reference Range Interpretation Comments Globulin (test code = Globulin) 2.8 2.0-4.0 [facility]2014-05-05 12:13:00 Test Item Value Reference Range Interpretation Comments A/G Ratio (test code = A/G Ratio) 1.2 0.7-1.6 [facility]2014-05-05 12:13:00 Test Item Value Reference Range Interpretation Comments B/C Ratio (test code = B/C Ratio) 10 6-25 [facility]2014-05-05 12:13:00 Test Item Value Reference Range Interpretation Comments AGAP (test code = AGAP) 6.9 10.0-20.0 [facility]2014-05-05 12:13:00 Test Item Value Reference Range Interpretation Comments eGFR (test code = eGFR) 101 [facility]2014-05-05 12:13:00 Test Item Value Reference Range Interpretation Comments Glucose Lvl (test code = Glucose Lvl) 84 70-99 [facility]2014-05-05 12:13:00 Test Item Value Reference Range Interpretation Comments Potassium Lvl (test code = Potassium 3.9 3.5-5.1 Lvl) [facility]2014-05-05 12:13:00 Test Item Value Reference Range Interpretation Comments Sodium Lvl (test code = Sodium Lvl) 141 135-145 [facility]2014-05-05 12:13:00 Test Item Value Reference Range Interpretation Comments Creatinine Lvl (test code = Creatinine 0.7 0.5-1.4 Lvl) [facility]2014-05-05 12:13:00 Test Item Value Reference Range Interpretation Comments BUN (test code = BUN) 7 7-22 [facility]2014-05-05 12:13:00 Test Item Value Reference Range Interpretation Comments Bili Total (test code = Bili Total) 0.3 0.2-1.3 [facility]2014-05-05 12:13:00 Test Item Value Reference Range Interpretation Comments Alk Phos (test code = Alk Phos) 71 39-136 [facility]2014-05-05 12:13:00 Test Item Value Reference Range Interpretation Comments AST (test code = AST) 21 See_Comment [Auto mated message] The system which ge nerated this result transmit ulysses reference range : <=37. The reference range was not used to interpr et this result as hsarron l/abnormal. [facility]2014-05-05 12:13:00 Test Item Value Reference Range Interpretation Comments ALT (test code = ALT) 20 See_Comment [Auto mated message] The system which ge nerated this result transmit ulysses reference range : <=65. The reference range was not used to interpr et this result as sharron l/abnormal. [facility]2014-05-05 12:13:00 Test Item Value Reference Range Interpretation Comments Total Protein (test code = Total 6.1 6.4-8.4 Protein) [facility]2014-05-05 12:13:00 Test Item Value Reference Range Interpretation Comments CO2 (test code = CO2) 33 24-32 [facility]2014-05-05 12:13:00 Test Item Value Reference Range Interpretation Comments Albumin Lvl (test code = Albumin Lvl) 3.3 3.5-5.0 [facility]2014-05-05 12:13:00 Test Item Value Reference Range Interpretation Comments Calcium Lvl (test code = Calcium Lvl) 8.4 8.5-10.5 [facility]2014-05-05 12:13:00 Test Item Value Reference Range Interpretation Comments Chloride Lvl (test code = Chloride Lvl) 105 95-109 [facility]ervilleHavuuidPGNIIIYAVF4474-63-90 12:13:00 Test Item Value Reference Range Interpretation Comments Basophils # (test code 0.0 See_Comment [Aut omated message] The = Basophils #) system which generated this result tra nsmitted reference range : <=0.2. The reference r jamaica was not used to int erpret this result as normal/abnormal . [place] 653004-05-05 12:13:00 Test Item Value Reference Range Interpretation Comments Segs (test code = Segs) 63.5 45.0-75.0 [facility] [place]ervilleRvugogqGGNHNJSMMR8300-58-56 12:13:00 Test Item Value Reference Range Interpretation Comments Monocytes # (test code 0.3 See_Comment [Aut omated message] The = Monocytes #) system which generated this result tra nsmitted reference range : <=0.8. The reference r jamaica was not used to int erpret this result as normal/abnormal . [facility] [place]ervilleQvwzbuuRGHOZEWMOW1383-09-91 12:13:00 Test Item Value Reference Range Interpretation Comments Basophils (test code = 0.2 See_Comment [Aut omated message] The Basophils) system which ge nerated this result tra nsmitted reference range : <=1.0. The reference r jamaica was not used to int erpret this result as normal/abnormal . [facility]ervilleUuzsupgPXHKOWHUWB7178-84-33 12:13:00 Test Item Value Reference Range Interpretation Comments Lymphocytes # (test code = Lymphocytes 1.5 1.0-5.5 #) [facility] [place]ervilleMtwvzucTLKXEUYRLN6975-92-60 12:13:00 Test Item Value Reference Range Interpretation Comments Segs-Bands # (test code = Segs-Bands #) 3.3 1.5-8.1 [facility] [place]ervilleJqfgqwgCTSZUOHMUF7463-39-62 12:13:00 Test Item Value Reference Range Interpretation Comments Eosinophils # (test code 0.1 See_Comment [A utomated message] The = Eosinophils #) system [facility] h generated this result tra nsmitted reference range : <=0.5. The reference r jamaica was not used to int erpret this result as normal/abnormal . [facility] [place]ervilleSmvoehfAUHNZPFPQW9760-12-82 12:13:00 Test Item Value Reference Range Interpretation Comments Lymphocytes (test code = Lymphocytes) 28.9 20.0-40.0 [facility] [place]ervilleBopsnhsCFSRSYDPAM7171-48-56 12:13:00 Test Item Value Reference Range Interpretation Comments Monocytes (test code = Monocytes) 6.2 2.0-12.0 [facility] [place]ervilleDwgcaqfBXUQQIVTPZ0017-05-48 12:13:00 Test Item Value Reference Range Interpretation Comments Eosinophils (test code = 1.2 See_Comment [A utomated message] The Eosinophils) system which ge nerated this result tra nsmitted reference range : <=4.0. The reference r jamaica was not used to int erpret this result as normal/abnormal . [facility]ervilleCqabbswLWTDRIJQZQ2709-87-44 12:13:00 Test Item Value Reference Range Interpretation Comments MCHC (test code = MCHC) 34.3 32.0-36.0 [facility] [place]ervilleXrpqoqjIJHERMTLDA3078-39-96 12:13:00 Test Item Value Reference Range Interpretation Comments RDW (test code = RDW) 16.5 11.5-14.5 [facility] [place]ervilleCebkxsoNQQHDNSIZB0295-68-12 12:13:00 Test Item Value Reference Range Interpretation Comments MCH (test code = MCH) 31.5 pg 27.0-31.0 [facility] [place]ervilleXazgmidXHFGWYEAMI5112-16-26 12:13:00 Test Item Value Reference Range Interpretation Comments MCV (test code = MCV) 91.9 81.0-99.0 [facility] [place]ervilleRmppmxeUYUVKVQDCW9381-79-55 12:13:00 Test Item Value Reference Range Interpretation Comments Platelet (test code = Platelet) 177 133-450 [facility] [place]ervilleOecjyrdEAOFEBQLDH9943-84-01 12:13:00 Test Item Value Reference Range Interpretation Comments MPV (test code = MPV) 7.9 7.4-10.4 [facility] [place]ervilleGhokiklLWRCFSWGMT4490-40-67 12:13:00 Test Item Value Reference Range Interpretation Comments RBC (test code = RBC) 3.91 4.20-5.40 [facility] [place]ervilleAfruoyuYFXWFEJLNT6266-62-64 12:13:00 Test Item Value Reference Range Interpretation Comments Hct (test code = Hct) 35.9 36.0-48.0 [facility] [place]ervilleQvghcllJQJCCWWXNG0080-12-79 12:13:00 Test Item Value Reference Range Interpretation Comments Hgb (test code = Hgb) 12.3 12.0-16.0 [facility] [place]ervilleKqohtduUYZQCVZHLT5561-59-80 12:13:00 Test Item Value Reference Range Interpretation Comments WBC (test code = WBC) 5.1 3.7-10.4 [facility]2014-05-05 12:13:00 Test Item Value Reference Range Interpretation Comments Magnesium Lvl (test code = Magnesium 1.8 1.8-2.4 Lvl) [facility]2014-05-05 12:13:00 Test Item Value Reference Range Interpretation Comments Phosphorus (test code = Phosphorus) 2.6 2.5-4.5 [facility]2014-05-05 12:13:00 Test Item Value Reference Range Interpretation Comments Globulin (test code = Globulin) 2.8 2.0-4.0 [facility]2014-05-05 12:13:00 Test Item Value Reference Range Interpretation Comments A/G Ratio (test code = A/G Ratio) 1.2 0.7-1.6 [facility]2014-05-05 12:13:00 Test Item Value Reference Range Interpretation Comments B/C Ratio (test code = B/C Ratio) 10 6-25 [place] 695474-05-05 12:13:00 Test Item Value Reference Range Interpretation Comments AGAP (test code = AGAP) 6.9 10.0-20.0 [facility]2014-05-05 12:13:00 Test Item Value Reference Range Interpretation Comments eGFR (test code = eGFR) 101 [facility]2014-05-05 12:13:00 Test Item Value Reference Range Interpretation Comments Glucose Lvl (test code = Glucose Lvl) 84 70-99 [place] 695474-05-05 12:13:00 Test Item Value Reference Range Interpretation Comments Potassium Lvl (test code = Potassium 3.9 3.5-5.1 Lvl) [facility]2014-05-05 12:13:00 Test Item Value Reference Range Interpretation Comments Sodium Lvl (test code = Sodium Lvl) 141 135-145 [facility]2014-05-05 12:13:00 Test Item Value Reference Range Interpretation Comments Creatinine Lvl (test code = Creatinine 0.7 0.5-1.4 Lvl) [place] 695474-05-05 12:13:00 Test Item Value Reference Range Interpretation Comments BUN (test code = BUN) 7 7-22 [place] 695474-05-05 12:13:00 Test Item Value Reference Range Interpretation Comments Bili Total (test code = Bili Total) 0.3 0.2-1.3 [place] 695474-05-05 12:13:00 Test Item Value Reference Range Interpretation Comments Alk Phos (test code = Alk Phos) 71 39-136 [place] 695474-05-05 12:13:00 Test Item Value Reference Range Interpretation Comments AST (test code = AST) 21 See_Comment [Auto mated message] The system which ge nerated this result transmit ulysses reference range : <=37. The reference range was not used to interpr et this result as sharron l/abnormal. [facility]2014-05-05 12:13:00 Test Item Value Reference Range Interpretation Comments ALT (test code = ALT) 20 See_Comment [Auto mated message] The system which ge nerated this result transmit ulysses reference range : <=65. The reference range was not used to interpr et this result as sharron l/abnormal. [facility]2014-05-05 12:13:00 Test Item Value Reference Range Interpretation Comments Total Protein (test code = Total 6.1 6.4-8.4 Protein) [facility]2014-05-05 12:13:00 Test Item Value Reference Range Interpretation Comments CO2 (test code = CO2) 33 24-32 [facility]2014-05-05 12:13:00 Test Item Value Reference Range Interpretation Comments Albumin Lvl (test code = Albumin Lvl) 3.3 3.5-5.0 [facility]2014-05-05 12:13:00 Test Item Value Reference Range Interpretation Comments Calcium Lvl (test code = Calcium Lvl) 8.4 8.5-10.5 [facility]2014-05-05 12:13:00 Test Item Value Reference Range Interpretation Comments Chloride Lvl (test code = Chloride Lvl) 105 95-109 [facility]ervilleWcagcncOHTRRVBDGW6660-93-51 12:13:00 Test Item Value Reference Range Interpretation Comments Basophils # (test code 0.0 See_Comment [Aut omated message] The = Basophils #) system which generated this result tra nsmitted reference range : <=0.2. The reference r jamaica was not used to int erpret this result as normal/abnormal . [facility] [place]ervilleLjdpmfqGCHRCEHCIM0108-46-45 12:13:00 Test Item Value Reference Range Interpretation Comments Segs (test code = Segs) 63.5 45.0-75.0 [facility] [place]ervilleQgnhlwoXFQQFNCPCD0084-40-58 12:13:00 Test Item Value Reference Range Interpretation Comments Monocytes # (test code 0.3 See_Comment [Aut omated message] The = Monocytes #) system which generated this result tra nsmitted reference range : <=0.8. The reference r jamaica was not used to int erpret this result as normal/abnormal . [facility]ervilleJodtwhhYYDSULPGZU7495-72-86 12:13:00 Test Item Value Reference Range Interpretation Comments Basophils (test code = 0.2 See_Comment [Aut omated message] The Basophils) system which ge nerated this result tra nsmitted reference range : <=1.0. The reference r jamaica was not used to int erpret this result as normal/abnormal . [facility]ervillePumqwcqIQQPIZYSLR1303-27-88 12:13:00 Test Item Value Reference Range Interpretation Comments Lymphocytes # (test code = Lymphocytes 1.5 1.0-5.5 #) [facility] [place]ervillePixvpilXYXJFFPNMA9549-70-39 12:13:00 Test Item Value Reference Range Interpretation Comments Segs-Bands # (test code = Segs-Bands #) 3.3 1.5-8.1 [facility] [place]ervilleCeupogrWSRLGZRQIE2502-95-94 12:13:00 Test Item Value Reference Range Interpretation Comments Eosinophils # (test code 0.1 See_Comment [A utomated message] The = Eosinophils #) system [facility] generated this result tra nsmitted reference range : <=0.5. The reference r jamaica was not used to int erpret this result as normal/abnormal . [facility]ervilleOupetskQZFRAYBJHZ3489-69-45 12:13:00 Test Item Value Reference Range Interpretation Comments Lymphocytes (test code = Lymphocytes) 28.9 20.0-40.0 [facility] [place]ervilleJbwkahjKGDVJYOTWK3853-08-58 12:13:00 Test Item Value Reference Range Interpretation Comments Monocytes (test code = Monocytes) 6.2 2.0-12.0 [facility] [place]ervilleSdazenmODRCTKDLBV4869-45-39 12:13:00 Test Item Value Reference Range Interpretation Comments Eosinophils (test code = 1.2 See_Comment [A utomated message] The Eosinophils) system which ge nerated this result tra nsmitted reference range : <=4.0. The reference r jamaica was not used to int erpret this result as normal/abnormal . [facility]ervilleVuuuzlcCZCZXVYODK7522-61-79 12:13:00 Test Item Value Reference Range Interpretation Comments MCHC (test code = MCHC) 34.3 32.0-36.0 [facility] [place]ervilleMftfnssIAOFATNGMJ9645-35-45 12:13:00 Test Item Value Reference Range Interpretation Comments RDW (test code = RDW) 16.5 11.5-14.5 [facility] [place]ervilleEnaoskcGHWKIKCBNZ0342-24-04 12:13:00 Test Item Value Reference Range Interpretation Comments MCH (test code = MCH) 31.5 pg 27.0-31.0 [facility] [place]ervilleMkqlbsaEVNEEDLBQG1637-53-65 12:13:00 Test Item Value Reference Range Interpretation Comments MCV (test code = MCV) 91.9 81.0-99.0 [facility] [place]ervilleXrkdxpkKMFIOGVTGX2292-78-30 12:13:00 Test Item Value Reference Range Interpretation Comments Platelet (test code = Platelet) 177 133-450 [facility] [place]ervilleJjyklubXFIRNVYFQV5559-74-68 12:13:00 Test Item Value Reference Range Interpretation Comments MPV (test code = MPV) 7.9 7.4-10.4 [facility] [place]ervilleTkmsyykFHFSQCKCSQ7665-89-16 12:13:00 Test Item Value Reference Range Interpretation Comments RBC (test code = RBC) 3.91 4.20-5.40 [facility] [place]ervilleHbwyvkqWUHUZXUMNP5549-21-17 12:13:00 Test Item Value Reference Range Interpretation Comments Hct (test code = Hct) 35.9 36.0-48.0 [facility] [place]ervilleKihsqrxIVPNEOKKYN9475-96-80 12:13:00 Test Item Value Reference Range Interpretation Comments Hgb (test code = Hgb) 12.3 12.0-16.0 [facility] [place]ervilleThislagAXQHGZHIVQ0091-76-41 12:13:00 Test Item Value Reference Range Interpretation Comments WBC (test code = WBC) 5.1 3.7-10.4 [facility]2014-05-05 12:13:00 Test Item Value Reference Range Interpretation Comments Magnesium Lvl (test code = Magnesium 1.8 1.8-2.4 Lvl) [facility]2014-05-05 12:13:00 Test Item Value Reference Range Interpretation Comments Phosphorus (test code = Phosphorus) 2.6 2.5-4.5 [facility]2014-05-05 12:13:00 Test Item Value Reference Range Interpretation Comments Globulin (test code = Globulin) 2.8 2.0-4.0 [facility]2014-05-05 12:13:00 Test Item Value Reference Range Interpretation Comments A/G Ratio (test code = A/G Ratio) 1.2 0.7-1.6 [facility]2014-05-05 12:13:00 Test Item Value Reference Range Interpretation Comments B/C Ratio (test code = B/C Ratio) 10 6-25 [place]95474-05-05 12:13:00 Test Item Value Reference Range Interpretation Comments AGAP (test code = AGAP) 6.9 10.0-20.0 [facility]2014-05-05 12:13:00 Test Item Value Reference Range Interpretation Comments eGFR (test code = eGFR) 101 [facility]2014-05-05 12:13:00 Test Item Value Reference Range Interpretation Comments Glucose Lvl (test code = Glucose Lvl) 84 70-99 [place] 695474-05-05 12:13:00 Test Item Value Reference Range Interpretation Comments Potassium Lvl (test code = Potassium 3.9 3.5-5.1 Lvl) [place]95474-05-05 12:13:00 Test Item Value Reference Range Interpretation Comments Sodium Lvl (test code = Sodium Lvl) 141 135-145 [facility]2014-05-05 12:13:00 Test Item Value Reference Range Interpretation Comments Creatinine Lvl (test code = Creatinine 0.7 0.5-1.4 Lvl) [facility]2014-05-05 12:13:00 Test Item Value Reference Range Interpretation Comments BUN (test code = BUN) 7 7-22 [place] 695474-05-05 12:13:00 Test Item Value Reference Range Interpretation Comments Bili Total (test code = Bili Total) 0.3 0.2-1.3 [place]95474-05-05 12:13:00 Test Item Value Reference Range Interpretation Comments Alk Phos (test code = Alk Phos) 71 39-136 [facility]2014-05-05 12:13:00 Test Item Value Reference Range Interpretation Comments AST (test code = AST) 21 See_Comment [Auto mated message] The system which ge nerated this result transmit ulysses reference range : <=37. The reference range was not used to interpr et this result as sharron l/abnormal. [place]95474-05-05 12:13:00 Test Item Value Reference Range Interpretation Comments ALT (test code = ALT) 20 See_Comment [Auto mated message] The system which ge nerated this result transmit ulysses reference range : <=65. The reference range was not used to interpr et this result as sharron l/abnormal. [facility]2014-05-05 12:13:00 Test Item Value Reference Range Interpretation Comments Total Protein (test code = Total 6.1 6.4-8.4 Protein) [facility]2014-05-05 12:13:00 Test Item Value Reference Range Interpretation Comments CO2 (test code = CO2) 33 24-32 [place] 695474-05-05 12:13:00 Test Item Value Reference Range Interpretation Comments Albumin Lvl (test code = Albumin Lvl) 3.3 3.5-5.0 [facility]2014-05-05 12:13:00 Test Item Value Reference Range Interpretation Comments Calcium Lvl (test code = Calcium Lvl) 8.4 8.5-10.5 [place] 695474-05-05 12:13:00 Test Item Value Reference Range Interpretation Comments Chloride Lvl (test code = Chloride Lvl) 105 95-109 [place] 653004-05-05 12:13:00 Test Item Value Reference Range Interpretation Comments Basophils # (test code 0.0 See_Comment [Aut omated message] The = Basophils #) system which generated this result tra nsmitted reference range : <=0.2. The reference r jamaica was not used to int erpret this result as normal/abnormal . [facility]OwmjmhqKDTUQVAQLT0769-04-87 12:13:00 Test Item Value Reference Range Interpretation Comments Segs (test code = Segs) 63.5 45.0-75.0 [facility] [place]WpxwcuqHPMNRYSPYT3546-90-17 12:13:00 Test Item Value Reference Range Interpretation Comments Monocytes # (test code 0.3 See_Comment [Aut omated message] The = Monocytes #) system which generated this result tra nsmitted reference range : <=0.8. The reference r jamaica was not used to int erpret this result as normal/abnormal . [place] 653004-05-05 12:13:00 Test Item Value Reference Range Interpretation Comments Basophils (test code = 0.2 See_Comment [Aut omated message] The Basophils) system which ge nerated this result tra nsmitted reference range : <=1.0. The reference r jamaica was not used to int erpret this result as normal/abnormal . [facility] [place]WnrfgfoGQJXYSUKLK8734-10-43 12:13:00 Test Item Value Reference Range Interpretation Comments Lymphocytes # (test code = Lymphocytes 1.5 1.0-5.5 #) [facility] [place]GdzmfzmJWDDNIZMLQ8975-00-80 12:13:00 Test Item Value Reference Range Interpretation Comments Segs-Bands # (test code = Segs-Bands #) 3.3 1.5-8.1 [facility] [place]IiquzsxSOBNJBCNHG7175-17-63 12:13:00 Test Item Value Reference Range Interpretation Comments Eosinophils # (test code 0.1 See_Comment [A utomated message] The = Eosinophils #) system whic h generated this result tra nsmitted reference range : <=0.5. The reference r jamaica was not used to int erpret this result as normal/abnormal . [facility] [place]SzujiesXGXIVSDZCC0748-77-09 12:13:00 Test Item Value Reference Range Interpretation Comments Lymphocytes (test code = Lymphocytes) 28.9 20.0-40.0 [facility] [place]OejdjfsYBBGDDNQHG0887-26-01 12:13:00 Test Item Value Reference Range Interpretation Comments Monocytes (test code = Monocytes) 6.2 2.0-12.0 [facility] [place]ervilleUwntricALJSKHDLCA8730-92-77 12:13:00 Test Item Value Reference Range Interpretation Comments Eosinophils (test code = 1.2 See_Comment [A utomated message] The Eosinophils) system which ge nerated this result tra nsmitted reference range : <=4.0. The reference r jamaica was not used to int erpret this result as normal/abnormal . [facility] [place]ervilleRalyhgtOFVBOGDXPN9082-69-88 12:13:00 Test Item Value Reference Range Interpretation Comments MCHC (test code = MCHC) 34.3 32.0-36.0 [facility] [place]XgypedtTKTHRSCSMC5670-04-37 12:13:00 Test Item Value Reference Range Interpretation Comments RDW (test code = RDW) 16.5 11.5-14.5 [facility] [place]ervilleCvveezjVJHKOUZBOF7311-04-91 12:13:00 Test Item Value Reference Range Interpretation Comments MCH (test code = MCH) 31.5 pg 27.0-31.0 [facility] [place]DbrqivxYFNWASCBCT6358-56-20 12:13:00 Test Item Value Reference Range Interpretation Comments MCV (test code = MCV) 91.9 81.0-99.0 [facility] [place]ervilleIsiytkaEBOJCARPIS7966-14-40 12:13:00 Test Item Value Reference Range Interpretation Comments Platelet (test code = Platelet) 177 133-450 [facility] [place]KuwtlyqOQJIBBMDCR0017-01-24 12:13:00 Test Item Value Reference Range Interpretation Comments MPV (test code = MPV) 7.9 7.4-10.4 [facility] [place]KbndamdMVUSJGLABX1627-25-77 12:13:00 Test Item Value Reference Range Interpretation Comments RBC (test code = RBC) 3.91 4.20-5.40 [facility] [place]ervilleZdgeinnCAEXVKPYDC5785-51-74 12:13:00 Test Item Value Reference Range Interpretation Comments Hct (test code = Hct) 35.9 36.0-48.0 [facility] [place]OyubmqoNPLKBPHDIA6124-66-05 12:13:00 Test Item Value Reference Range Interpretation Comments Hgb (test code = Hgb) 12.3 12.0-16.0 [facility] [place]WzzrhmyWPEIIXSETK4748-58-32 12:13:00 Test Item Value Reference Range Interpretation Comments WBC (test code = WBC) 5.1 3.7-10.4 [facility]2014-05-05 12:13:00 Test Item Value Reference Range Interpretation Comments Magnesium Lvl (test code = Magnesium 1.8 1.8-2.4 Lvl) [facility]2014-05-05 12:13:00 Test Item Value Reference Range Interpretation Comments Phosphorus (test code = Phosphorus) 2.6 2.5-4.5 [facility]2014-05-05 12:13:00 Test Item Value Reference Range Interpretation Comments Globulin (test code = Globulin) 2.8 2.0-4.0 [facility]2014-05-05 12:13:00 Test Item Value Reference Range Interpretation Comments A/G Ratio (test code = A/G Ratio) 1.2 0.7-1.6 [facility]2014-05-05 12:13:00 Test Item Value Reference Range Interpretation Comments B/C Ratio (test code = B/C Ratio) 10 6-25 [facility]2014-05-05 12:13:00 Test Item Value Reference Range Interpretation Comments AGAP (test code = AGAP) 6.9 10.0-20.0 [facility]2014-05-05 12:13:00 Test Item Value Reference Range Interpretation Comments eGFR (test code = eGFR) 101 [facility]2014-05-05 12:13:00 Test Item Value Reference Range Interpretation Comments Glucose Lvl (test code = Glucose Lvl) 84 70-99 [place]95474-05-05 12:13:00 Test Item Value Reference Range Interpretation Comments Potassium Lvl (test code = Potassium 3.9 3.5-5.1 Lvl) [place]95474-05-05 12:13:00 Test Item Value Reference Range Interpretation Comments Sodium Lvl (test code = Sodium Lvl) 141 135-145 [place]95474-05-05 12:13:00 Test Item Value Reference Range Interpretation Comments Creatinine Lvl (test code = Creatinine 0.7 0.5-1.4 Lvl) [facility]2014-05-05 12:13:00 Test Item Value Reference Range Interpretation Comments BUN (test code = BUN) 7 7-22 [place] 695474-05-05 12:13:00 Test Item Value Reference Range Interpretation Comments Bili Total (test code = Bili Total) 0.3 0.2-1.3 [place]95474-05-05 12:13:00 Test Item Value Reference Range Interpretation Comments Alk Phos (test code = Alk Phos) 71 39-136 [facility]2014-05-05 12:13:00 Test Item Value Reference Range Interpretation Comments AST (test code = AST) 21 See_Comment [Auto mated message] The system which ge nerated this result transmit ulysses reference range : <=37. The reference range was not used to interpr et this result as sharron l/abnormal. [place]95474-05-05 12:13:00 Test Item Value Reference Range Interpretation Comments ALT (test code = ALT) 20 See_Comment [Auto mated message] The system which ge nerated this result transmit ulysses reference range : <=65. The reference range was not used to interpr et this result as sharron l/abnormal. [place]95474-05-05 12:13:00 Test Item Value Reference Range Interpretation Comments Total Protein (test code = Total 6.1 6.4-8.4 Protein) [facility]2014-05-05 12:13:00 Test Item Value Reference Range Interpretation Comments CO2 (test code = CO2) 33 24-32 [place]95474-05-05 12:13:00 Test Item Value Reference Range Interpretation Comments Albumin Lvl (test code = Albumin Lvl) 3.3 3.5-5.0 [facility]2014-05-05 12:13:00 Test Item Value Reference Range Interpretation Comments Calcium Lvl (test code = Calcium Lvl) 8.4 8.5-10.5 [facility]2014-05-05 12:13:00 Test Item Value Reference Range Interpretation Comments Chloride Lvl (test code = Chloride Lvl) 105 95-109 [facility] [place]ervilleXrypadoHKXXGMOJSZ5259-82-14 12:13:00 Test Item Value Reference Range Interpretation Comments Basophils # (test code 0.0 See_Comment [Aut omated message] The = Basophils #) system which generated this result tra nsmitted reference range : <=0.2. The reference r jamaica was not used to int erpret this result as normal/abnormal . [facility] [place]ervilleZwqzhrnPQRYNBUZIS7846-88-88 12:13:00 Test Item Value Reference Range Interpretation Comments Segs (test code = Segs) 63.5 45.0-75.0 [facility] [place]ervilleFbhqkjpJIOIMISBZC3079-74-57 12:13:00 Test Item Value Reference Range Interpretation Comments Monocytes # (test code 0.3 See_Comment [Aut omated message] The = Monocytes #) system which generated this result tra nsmitted reference range : <=0.8. The reference r jamaica was not used to int erpret this result as normal/abnormal . [facility] [place]ervilleHuakfpwSJHAORVYWP5352-31-68 12:13:00 Test Item Value Reference Range Interpretation Comments Basophils (test code = 0.2 See_Comment [Aut omated message] The Basophils) system which ge nerated this result tra nsmitted reference range : <=1.0. The reference r jamaica was not used to int erpret this result as normal/abnormal . [facility] [place]PkqtylzVREQKIJSZT3914-35-84 12:13:00 Test Item Value Reference Range Interpretation Comments Lymphocytes # (test code = Lymphocytes 1.5 1.0-5.5 #) [facility] [place]ervilleYifziruWHHEPKWVLR2895-54-39 12:13:00 Test Item Value Reference Range Interpretation Comments Segs-Bands # (test code = Segs-Bands #) 3.3 1.5-8.1 [facility] [place]ervilleMbjspvfGSZHDGBEXY6897-45-90 12:13:00 Test Item Value Reference Range Interpretation Comments Eosinophils # (test code 0.1 See_Comment [A utomated message] The = Eosinophils #) system whic h generated this result tra nsmitted reference range : <=0.5. The reference r jamaica was not used to int erpret this result as normal/abnormal . [facility] [place]KqrsycrATSBZIGFJZ2368-21-18 12:13:00 Test Item Value Reference Range Interpretation Comments Lymphocytes (test code = Lymphocytes) 28.9 20.0-40.0 [facility] [place]ervilleAerdlssMBGWZRTPEG7263-45-72 12:13:00 Test Item Value Reference Range Interpretation Comments Monocytes (test code = Monocytes) 6.2 2.0-12.0 [facility] [place]ervilleDovukgxJKWNAZDFQF1905-21-29 12:13:00 Test Item Value Reference Range Interpretation Comments Eosinophils (test code = 1.2 See_Comment [A utomated message] The Eosinophils) system which ge nerated this result tra nsmitted reference range : <=4.0. The reference r jamaica was not used to int erpret this result as normal/abnormal . [facility] [place]ervilleItbxlzdECVAKLJEOB7202-43-73 12:13:00 Test Item Value Reference Range Interpretation Comments MCHC (test code = MCHC) 34.3 32.0-36.0 [facility] [place]ervilleZkuspjxUSGKFDFZIF4719-41-69 12:13:00 Test Item Value Reference Range Interpretation Comments RDW (test code = RDW) 16.5 11.5-14.5 [facility] [place]ervilleDhzqxmtVTYVOOWSMJ1667-15-62 12:13:00 Test Item Value Reference Range Interpretation Comments MCH (test code = MCH) 31.5 pg 27.0-31.0 [facility] [place]ervilleYrighuaAJCQGWMQBK8739-30-30 12:13:00 Test Item Value Reference Range Interpretation Comments MCV (test code = MCV) 91.9 81.0-99.0 [facility] [place]ervilleYusfbrmAUQAFTYSAG9609-64-99 12:13:00 Test Item Value Reference Range Interpretation Comments Platelet (test code = Platelet) 177 133-450 [facility] [place]ervilleKiiitqtFGNYBJNIIV8581-27-11 12:13:00 Test Item Value Reference Range Interpretation Comments MPV (test code = MPV) 7.9 7.4-10.4 [facility] [place]ervilleYbubvzhLBNZYANHWP5865-36-66 12:13:00 Test Item Value Reference Range Interpretation Comments RBC (test code = RBC) 3.91 4.20-5.40 [facility] [place]ervilleSjxmacuFOFHTKTBQL0423-21-06 12:13:00 Test Item Value Reference Range Interpretation Comments Hct (test code = Hct) 35.9 36.0-48.0 [facility] [place]ervilleTphgbjiKICPNSTMTM0299-91-28 12:13:00 Test Item Value Reference Range Interpretation Comments Hgb (test code = Hgb) 12.3 12.0-16.0 [facility] [place]ervilleSoizeseCURJPLLHHC9722-93-48 12:13:00 Test Item Value Reference Range Interpretation Comments WBC (test code = WBC) 5.1 3.7-10.4 [facility]2014-05-05 12:13:00 Test Item Value Reference Range Interpretation Comments Magnesium Lvl (test code = Magnesium 1.8 1.8-2.4 Lvl) [facility]2014-05-05 12:13:00 Test Item Value Reference Range Interpretation Comments Phosphorus (test code = Phosphorus) 2.6 2.5-4.5 [facility]2014-05-05 12:13:00 Test Item Value Reference Range Interpretation Comments Globulin (test code = Globulin) 2.8 2.0-4.0 [facility]2014-05-05 12:13:00 Test Item Value Reference Range Interpretation Comments A/G Ratio (test code = A/G Ratio) 1.2 0.7-1.6 [facility]2014-05-05 12:13:00 Test Item Value Reference Range Interpretation Comments B/C Ratio (test code = B/C Ratio) 10 6-25 [facility]2014-05-05 12:13:00 Test Item Value Reference Range Interpretation Comments AGAP (test code = AGAP) 6.9 10.0-20.0 [facility]2014-05-05 12:13:00 Test Item Value Reference Range Interpretation Comments eGFR (test code = eGFR) 101 [facility]2014-05-05 12:13:00 Test Item Value Reference Range Interpretation Comments Glucose Lvl (test code = Glucose Lvl) 84 70-99 [facility]2014-05-05 12:13:00 Test Item Value Reference Range Interpretation Comments Potassium Lvl (test code = Potassium 3.9 3.5-5.1 Lvl) [facility]2014-05-05 12:13:00 Test Item Value Reference Range Interpretation Comments Sodium Lvl (test code = Sodium Lvl) 141 135-145 [facility]2014-05-05 12:13:00 Test Item Value Reference Range Interpretation Comments Creatinine Lvl (test code = Creatinine 0.7 0.5-1.4 Lvl) [facility]2014-05-05 12:13:00 Test Item Value Reference Range Interpretation Comments BUN (test code = BUN) 7 7-22 [place]95474-05-05 12:13:00 Test Item Value Reference Range Interpretation Comments Bili Total (test code = Bili Total) 0.3 0.2-1.3 [place]95[place]-05-05 12:13:00 Test Item Value Reference Range Interpretation Comments Alk Phos (test code = Alk Phos) 71 39-136 [facility]2014-05-05 12:13:00 Test Item Value Reference Range Interpretation Comments AST (test code = AST) 21 See_Comment [Auto mated message] The system which ge nerated this result transmit ulysses reference range : <=37. The reference range was not used to interpr et this result as sharron l/abnormal. [facility]2014-05-05 12:13:00 Test Item Value Reference Range Interpretation Comments ALT (test code = ALT) 20 See_Comment [Auto mated message] The system which ge nerated this result transmit ulysses reference range : <=65. The reference range was not used to interpr et this result as sharron l/abnormal. [facility]2014-05-05 12:13:00 Test Item Value Reference Range Interpretation Comments Total Protein (test code = Total 6.1 6.4-8.4 Protein) [facility]2014-05-05 12:13:00 Test Item Value Reference Range Interpretation Comments CO2 (test code = CO2) 33 24-32 [place]95474-05-05 12:13:00 Test Item Value Reference Range Interpretation Comments Albumin Lvl (test code = Albumin Lvl) 3.3 3.5-5.0 [facility]2014-05-05 12:13:00 Test Item Value Reference Range Interpretation Comments Calcium Lvl (test code = Calcium Lvl) 8.4 8.5-10.5 [facility]2014-05-05 12:13:00 Test Item Value Reference Range Interpretation Comments Chloride Lvl (test code = Chloride Lvl) 105 95-109 [facility] [place]ervilleCpdqgyqEBZGSOBCWW0138-64-05 12:13:00 Test Item Value Reference Range Interpretation Comments Basophils # (test code 0.0 See_Comment [Aut omated message] The = Basophils #) system which generated this result tra nsmitted reference range : <=0.2. The reference r jamaica was not used to int erpret this result as normal/abnormal . [facility] [place]ervillePzgdwraWNBBVIVCYB1126-53-87 12:13:00 Test Item Value Reference Range Interpretation Comments Segs (test code = Segs) 63.5 45.0-75.0 [facility] [place]ervilleHvtilmyCKNORVYPHB0057-92-39 12:13:00 Test Item Value Reference Range Interpretation Comments Monocytes # (test code 0.3 See_Comment [Aut omated message] The = Monocytes #) system which generated this result tra nsmitted reference range : <=0.8. The reference r jamaica was not used to int erpret this result as normal/abnormal . [facility] [place]ervilleZzieylcSCDDFKFFOH5868-99-66 12:13:00 Test Item Value Reference Range Interpretation Comments Basophils (test code = 0.2 See_Comment [Aut omated message] The Basophils) system which ge nerated this result tra nsmitted reference range : <=1.0. The reference r jamaica was not used to int erpret this result as normal/abnormal . [facility] [place]ervilleRqqmzhnILXEAMRNHO4746-20-09 12:13:00 Test Item Value Reference Range Interpretation Comments Lymphocytes # (test code = Lymphocytes 1.5 1.0-5.5 #) [facility] [place]ervilleLhgnpqjGUBEDLLQEX9697-82-03 12:13:00 Test Item Value Reference Range Interpretation Comments Segs-Bands # (test code = Segs-Bands #) 3.3 1.5-8.1 [place]53004-05-05 12:13:00 Test Item Value Reference Range Interpretation Comments Eosinophils # (test code 0.1 See_Comment [A utomated message] The = Eosinophils #) system whic h generated this result tra nsmitted reference range : <=0.5. The reference r jamaica was not used to int erpret this result as normal/abnormal . [facility] [place]ervilleNcsxwusKYNTZIRMIF0812-27-25 12:13:00 Test Item Value Reference Range Interpretation Comments Lymphocytes (test code = Lymphocytes) 28.9 20.0-40.0 [facility] [place]ervilleVyllwqaWBKYHJHPXI9333-67-90 12:13:00 Test Item Value Reference Range Interpretation Comments Monocytes (test code = Monocytes) 6.2 2.0-12.0 [facility] [place]ervilleTxzteqdDCGKPSHOHW5957-34-82 12:13:00 Test Item Value Reference Range Interpretation Comments Eosinophils (test code = 1.2 See_Comment [A utomated message] The Eosinophils) system which ge nerated this result tra nsmitted reference range : <=4.0. The reference r jamaica was not used to int erpret this result as normal/abnormal . [facility] [place]YvnslddSCKCLXFZKB4086-21-58 12:13:00 Test Item Value Reference Range Interpretation Comments MCHC (test code = MCHC) 34.3 32.0-36.0 [facility] [place]KysjjgrUNSHLJVHCN6223-00-58 12:13:00 Test Item Value Reference Range Interpretation Comments RDW (test code = RDW) 16.5 11.5-14.5 [facility] [place]ervilleDjwbierNUCPCNSQQJ8877-15-35 12:13:00 Test Item Value Reference Range Interpretation Comments MCH (test code = MCH) 31.5 pg 27.0-31.0 [facility] [place]ervilleFmstjyyPCTAWHHQVA3796-52-51 12:13:00 Test Item Value Reference Range Interpretation Comments MCV (test code = MCV) 91.9 81.0-99.0 [facility] [place]ervilleQcqfvhdNYOQOBRRIX1924-22-93 12:13:00 Test Item Value Reference Range Interpretation Comments Platelet (test code = Platelet) 177 133-450 [facility] [place]ervilleZhvsdgqITTEXHMMGF0607-32-00 12:13:00 Test Item Value Reference Range Interpretation Comments MPV (test code = MPV) 7.9 7.4-10.4 [facility] [place]ervilleIiztnpfIDONNKHYKK8456-88-90 12:13:00 Test Item Value Reference Range Interpretation Comments RBC (test code = RBC) 3.91 4.20-5.40 [facility] [place]ervilleMnuugohDNFRYHZSGG6793-01-88 12:13:00 Test Item Value Reference Range Interpretation Comments Hct (test code = Hct) 35.9 36.0-48.0 [facility] [place]ervilleWcnqywuDFMTICEZMO0535-73-80 12:13:00 Test Item Value Reference Range Interpretation Comments Hgb (test code = Hgb) 12.3 12.0-16.0 [facility] [place]ervilleSqwaallCVSTZXMRLB1299-02-73 12:13:00 Test Item Value Reference Range Interpretation Comments WBC (test code = WBC) 5.1 3.7-10.4 [place] [facility] 12:13:00 Test Item Value Reference Range Interpretation Comments Magnesium Lvl (test code = Magnesium 1.8 1.8-2.4 Lvl) [facility]2014-05-05 12:13:00 Test Item Value Reference Range Interpretation Comments Phosphorus (test code = Phosphorus) 2.6 2.5-4.5 [facility]2014-05-05 12:13:00 Test Item Value Reference Range Interpretation Comments Globulin (test code = Globulin) 2.8 2.0-4.0 [facility]2014-05-05 12:13:00 Test Item Value Reference Range Interpretation Comments A/G Ratio (test code = A/G Ratio) 1.2 0.7-1.6 [facility]2014-05-05 12:13:00 Test Item Value Reference Range Interpretation Comments B/C Ratio (test code = B/C Ratio) 10 6-25 [facility]2014-05-05 12:13:00 Test Item Value Reference Range Interpretation Comments AGAP (test code = AGAP) 6.9 10.0-20.0 [facility]2014-05-05 12:13:00 Test Item Value Reference Range Interpretation Comments eGFR (test code = eGFR) 101 [facility]2014-05-05 12:13:00 Test Item Value Reference Range Interpretation Comments Glucose Lvl (test code = Glucose Lvl) 84 70-99 [facility]2014-05-05 12:13:00 Test Item Value Reference Range Interpretation Comments Potassium Lvl (test code = Potassium 3.9 3.5-5.1 Lvl) [facility]2014-05-05 12:13:00 Test Item Value Reference Range Interpretation Comments Sodium Lvl (test code = Sodium Lvl) 141 135-145 [facility]2014-05-05 12:13:00 Test Item Value Reference Range Interpretation Comments Creatinine Lvl (test code = Creatinine 0.7 0.5-1.4 Lvl) [facility]2014-05-05 12:13:00 Test Item Value Reference Range Interpretation Comments BUN (test code = BUN) 7 7-22 [place] 695474-05-05 12:13:00 Test Item Value Reference Range Interpretation Comments Bili Total (test code = Bili Total) 0.3 0.2-1.3 [place] 695474-05-05 12:13:00 Test Item Value Reference Range Interpretation Comments Alk Phos (test code = Alk Phos) 71 39-136 [facility]2014-05-05 12:13:00 Test Item Value Reference Range Interpretation Comments AST (test code = AST) 21 See_Comment [Auto mated message] The system which ge nerated this result transmit ulysses reference range : <=37. The reference range was not used to interpr et this result as sharron l/abnormal. [facility]2014-05-05 12:13:00 Test Item Value Reference Range Interpretation Comments ALT (test code = ALT) 20 See_Comment [Auto mated message] The system which ge nerated this result transmit ulysses reference range : <=65. The reference range was not used to interpr et this result as sharron l/abnormal. [facility]2014-05-05 12:13:00 Test Item Value Reference Range Interpretation Comments Total Protein (test code = Total 6.1 6.4-8.4 Protein) [facility]2014-05-05 12:13:00 Test Item Value Reference Range Interpretation Comments CO2 (test code = CO2) 33 24-32 [facility]2014-05-05 12:13:00 Test Item Value Reference Range Interpretation Comments Albumin Lvl (test code = Albumin Lvl) 3.3 3.5-5.0 [facility]2014-05-05 12:13:00 Test Item Value Reference Range Interpretation Comments Calcium Lvl (test code = Calcium Lvl) 8.4 8.5-10.5 [facility]2014-05-05 12:13:00 Test Item Value Reference Range Interpretation Comments Chloride Lvl (test code = Chloride Lvl) 105 95-109 [facility]GnfmvhuKWYYOCUNCW8057-40-98 12:13:00 Test Item Value Reference Range Interpretation Comments Basophils # (test code 0.0 See_Comment [Aut omated message] The = Basophils #) system which generated this result tra nsmitted reference range : <=0.2. The reference r jamaica was not used to int erpret this result as normal/abnormal . [facility] [place]PqvnmhfSQJGRSVLOB6449-82-66 12:13:00 Test Item Value Reference Range Interpretation Comments Segs (test code = Segs) 63.5 45.0-75.0 [facility] [place]ervilleFwrkterHOSWNNYSDC8462-66-81 12:13:00 Test Item Value Reference Range Interpretation Comments Monocytes # (test code 0.3 See_Comment [Aut omated message] The = Monocytes #) system which generated this result tra nsmitted reference range : <=0.8. The reference r jamaica was not used to int erpret this result as normal/abnormal . [facility] [place]ervilleKulicbeFXIKANOQWZ2523-28-41 12:13:00 Test Item Value Reference Range Interpretation Comments Basophils (test code = 0.2 See_Comment [Aut omated message] The Basophils) system which ge nerated this result tra nsmitted reference range : <=1.0. The reference r jamaica was not used to int erpret this result as normal/abnormal . [facility] [place]EuuykntUAWTJTFKKZ8889-46-80 12:13:00 Test Item Value Reference Range Interpretation Comments Lymphocytes # (test code = Lymphocytes 1.5 1.0-5.5 #) [facility] [place]PpuvotyCIGFPPREQT0835-33-30 12:13:00 Test Item Value Reference Range Interpretation Comments Segs-Bands # (test code = Segs-Bands #) 3.3 1.5-8.1 [facility] [place]ervilleEqfshrqHECTAXJNVI8974-20-91 12:13:00 Test Item Value Reference Range Interpretation Comments Eosinophils # (test code 0.1 See_Comment [A utomated message] The = Eosinophils #) system whic h generated this result tra nsmitted reference range : <=0.5. The reference r jamaica was not used to int erpret this result as normal/abnormal . [facility] [place]ervilleSnzeukaOQDNJNBYGO2734-91-44 12:13:00 Test Item Value Reference Range Interpretation Comments Lymphocytes (test code = Lymphocytes) 28.9 20.0-40.0 [facility] [place]ervilleBpmvtnmGNLKCRCECE9309-11-74 12:13:00 Test Item Value Reference Range Interpretation Comments Monocytes (test code = Monocytes) 6.2 2.0-12.0 [facility] [place]ervilleNrkcwppVCTGONDGAD5390-56-90 12:13:00 Test Item Value Reference Range Interpretation Comments Eosinophils (test code = 1.2 See_Comment [A utomated message] The Eosinophils) system which ge nerated this result tra nsmitted reference range : <=4.0. The reference r jamaica was not used to int erpret this result as normal/abnormal . [facility] [place]ervilleTztckjyWZQVMEWIHZ4069-03-13 12:13:00 Test Item Value Reference Range Interpretation Comments MCHC (test code = MCHC) 34.3 32.0-36.0 [facility] [place]TzpmohhOVABFPOYTK9660-14-68 12:13:00 Test Item Value Reference Range Interpretation Comments RDW (test code = RDW) 16.5 11.5-14.5 [facility] [place]ervilleDxgqyedXFFBLAMDSZ7858-28-71 12:13:00 Test Item Value Reference Range Interpretation Comments MCH (test code = MCH) 31.5 pg 27.0-31.0 [facility] [place]ervilleUldbxweKTGZSZHFCZ2474-16-66 12:13:00 Test Item Value Reference Range Interpretation Comments MCV (test code = MCV) 91.9 81.0-99.0 [facility] [place]ervilleGpilzylENRRNROFFM2176-73-70 12:13:00 Test Item Value Reference Range Interpretation Comments Platelet (test code = Platelet) 177 133-450 [facility] [place]ervilleYlecclxBDKOXZPAUR9843-68-69 12:13:00 Test Item Value Reference Range Interpretation Comments MPV (test code = MPV) 7.9 7.4-10.4 [facility] [place]ervilleRrzkntvYCRPMKDGEC6923-39-81 12:13:00 Test Item Value Reference Range Interpretation Comments RBC (test code = RBC) 3.91 4.20-5.40 [facility] [place]ervilleOnpwktlOTBKSLLPWN8791-01-47 12:13:00 Test Item Value Reference Range Interpretation Comments Hct (test code = Hct) 35.9 36.0-48.0 [facility] [place]ervilleFgjwfrfEUJHPKXVSH8915-04-76 12:13:00 Test Item Value Reference Range Interpretation Comments Hgb (test code = Hgb) 12.3 12.0-16.0 [facility] [place]ervilleLzdgixuUUOFMWCJQK8904-04-34 12:13:00 Test Item Value Reference Range Interpretation Comments WBC (test code = WBC) 5.1 3.7-10.4 [facility]2014-05-05 12:13:00 Test Item Value Reference Range Interpretation Comments Magnesium Lvl (test code = Magnesium 1.8 1.8-2.4 Lvl) [facility]2014-05-05 12:13:00 Test Item Value Reference Range Interpretation Comments Phosphorus (test code = Phosphorus) 2.6 2.5-4.5 [facility]2014-05-05 12:13:00 Test Item Value Reference Range Interpretation Comments Globulin (test code = Globulin) 2.8 2.0-4.0 [facility]2014-05-05 12:13:00 Test Item Value Reference Range Interpretation Comments A/G Ratio (test code = A/G Ratio) 1.2 0.7-1.6 [facility]2014-05-05 12:13:00 Test Item Value Reference Range Interpretation Comments B/C Ratio (test code = B/C Ratio) 10 6-25 [facility]2014-05-05 12:13:00 Test Item Value Reference Range Interpretation Comments AGAP (test code = AGAP) 6.9 10.0-20.0 [facility]2014-05-05 12:13:00 Test Item Value Reference Range Interpretation Comments eGFR (test code = eGFR) 101 [facility]2014-05-05 12:13:00 Test Item Value Reference Range Interpretation Comments Glucose Lvl (test code = Glucose Lvl) 84 70-99 [facility]2014-05-05 12:13:00 Test Item Value Reference Range Interpretation Comments Potassium Lvl (test code = Potassium 3.9 3.5-5.1 Lvl) [facility]2014-05-05 12:13:00 Test Item Value Reference Range Interpretation Comments Sodium Lvl (test code = Sodium Lvl) 141 135-145 [facility]2014-05-05 12:13:00 Test Item Value Reference Range Interpretation Comments Creatinine Lvl (test code = Creatinine 0.7 0.5-1.4 Lvl) [facility]2014-05-05 12:13:00 Test Item Value Reference Range Interpretation Comments BUN (test code = BUN) 7 7-22 [facility]2014-05-05 12:13:00 Test Item Value Reference Range Interpretation Comments Bili Total (test code = Bili Total) 0.3 0.2-1.3 [facility]2014-05-05 12:13:00 Test Item Value Reference Range Interpretation Comments Alk Phos (test code = Alk Phos) 71 39-136 [facility]2014-05-05 12:13:00 Test Item Value Reference Range Interpretation Comments AST (test code = AST) 21 See_Comment [Auto mated message] The system which ge nerated this result transmit ulysses reference range : <=37. The reference range was not used to interpr et this result as sharron l/abnormal. [facility]2014-05-05 12:13:00 Test Item Value Reference Range Interpretation Comments ALT (test code = ALT) 20 See_Comment [Auto mated message] The system which ge nerated this result transmit ulysses reference range : <=65. The reference range was not used to interpr et this result as sharron l/abnormal. [facility]2014-05-05 12:13:00 Test Item Value Reference Range Interpretation Comments Total Protein (test code = Total 6.1 6.4-8.4 Protein) [facility]2014-05-05 12:13:00 Test Item Value Reference Range Interpretation Comments CO2 (test code = CO2) 33 24-32 [facility]2014-05-05 12:13:00 Test Item Value Reference Range Interpretation Comments Albumin Lvl (test code = Albumin Lvl) 3.3 3.5-5.0 [facility]2014-05-05 12:13:00 Test Item Value Reference Range Interpretation Comments Calcium Lvl (test code = Calcium Lvl) 8.4 8.5-10.5 [facility]2014-05-05 12:13:00 Test Item Value Reference Range Interpretation Comments Chloride Lvl (test code = Chloride Lvl) 105 95-109 [facility]ervilleYsecdzhSDKCUFMCSK0942-34-69 12:13:00 Test Item Value Reference Range Interpretation Comments Basophils # (test code 0.0 See_Comment [Aut omated message] The = Basophils #) system which generated this result tra nsmitted reference range : <=0.2. The reference r jamaica was not used to int erpret this result as normal/abnormal . [facility] [place]ervilleJnpdygnFDWSPIZKMP9170-28-56 12:13:00 Test Item Value Reference Range Interpretation Comments Segs (test code = Segs) 63.5 45.0-75.0 [facility] [place]ervilleOmijidgLYROMEQBAB6639-29-51 12:13:00 Test Item Value Reference Range Interpretation Comments Monocytes # (test code 0.3 See_Comment [Aut omated message] The = Monocytes #) system which generated this result tra nsmitted reference range : <=0.8. The reference r jamaica was not used to int erpret this result as normal/abnormal . [facility]ervilleBzwtlyhWMVKUMJESG8377-12-89 12:13:00 Test Item Value Reference Range Interpretation Comments Basophils (test code = 0.2 See_Comment [Aut omated message] The Basophils) system which ge nerated this result tra nsmitted reference range : <=1.0. The reference r jamaica was not used to int erpret this result as normal/abnormal . [facility]ervilleDhitquzVYSQMEQOAF8763-89-62 12:13:00 Test Item Value Reference Range Interpretation Comments Lymphocytes # (test code = Lymphocytes 1.5 1.0-5.5 #) [facility] [place]ervilleGneglarEWLVUWUYFM0409-20-90 12:13:00 Test Item Value Reference Range Interpretation Comments Segs-Bands # (test code = Segs-Bands #) 3.3 1.5-8.1 [facility] [place]ervilleAgeizawYOUDKMOCXP9566-80-27 12:13:00 Test Item Value Reference Range Interpretation Comments Eosinophils # (test code 0.1 See_Comment [A utomated message] The = Eosinophils #) system whic h generated this result tra nsmitted reference range : <=0.5. The reference r jamaica was not used to int erpret this result as normal/abnormal . [facility]ervilleRqruxirZZGRHVNTDZ8331-99-24 12:13:00 Test Item Value Reference Range Interpretation Comments Lymphocytes (test code = Lymphocytes) 28.9 20.0-40.0 [facility] [place]ervilleLjfmdskJXIYAOQKCE4246-74-41 12:13:00 Test Item Value Reference Range Interpretation Comments Monocytes (test code = Monocytes) 6.2 2.0-12.0 [facility] [place]ervilleDebxyifVZDBEDVVWE4149-46-67 12:13:00 Test Item Value Reference Range Interpretation Comments Eosinophils (test code = 1.2 See_Comment [A utomated message] The Eosinophils) system which ge nerated this result tra nsmitted reference range : <=4.0. The reference r jamaica was not used to int erpret this result as normal/abnormal . [facility] [place]ervilleXevzcgoLAXBRJNIUU0558-96-20 12:13:00 Test Item Value Reference Range Interpretation Comments MCHC (test code = MCHC) 34.3 32.0-36.0 [facility] [place]ervilleOukodrlWTGANZONAJ8982-62-76 12:13:00 Test Item Value Reference Range Interpretation Comments RDW (test code = RDW) 16.5 11.5-14.5 [facility] [place]ervilleJfczpthGVWJCWUDOO8388-93-35 12:13:00 Test Item Value Reference Range Interpretation Comments MCH (test code = MCH) 31.5 pg 27.0-31.0 [facility] [place]ervilleQqjgsfsGDKRXYFMRS2663-65-23 12:13:00 Test Item Value Reference Range Interpretation Comments MCV (test code = MCV) 91.9 81.0-99.0 [facility] [place]ervilleBkqdikgSMKGJASPUH4517-07-94 12:13:00 Test Item Value Reference Range Interpretation Comments Platelet (test code = Platelet) 177 133-450 [facility] [place]ervilleRbxmghjSRFAODSPDH2798-59-37 12:13:00 Test Item Value Reference Range Interpretation Comments MPV (test code = MPV) 7.9 7.4-10.4 [facility] [place]ervilleLxpxutqCKERFRLOWC4165-03-20 12:13:00 Test Item Value Reference Range Interpretation Comments RBC (test code = RBC) 3.91 4.20-5.40 [facility] [place]ervilleRrleakxZLXVFJADLY6778-63-32 12:13:00 Test Item Value Reference Range Interpretation Comments Hct (test code = Hct) 35.9 36.0-48.0 [facility] [place]ervilleEwxftidXYCKTFERSO5899-54-48 12:13:00 Test Item Value Reference Range Interpretation Comments Hgb (test code = Hgb) 12.3 12.0-16.0 [facility] [place]ervilleIkhodpvXNIVJCGMZN5381-43-51 12:13:00 Test Item Value Reference Range Interpretation Comments WBC (test code = WBC) 5.1 3.7-10.4 [facility]2014-05-05 12:13:00 Test Item Value Reference Range Interpretation Comments Magnesium Lvl (test code = Magnesium 1.8 1.8-2.4 Lvl) [facility]2014-05-05 12:13:00 Test Item Value Reference Range Interpretation Comments Phosphorus (test code = Phosphorus) 2.6 2.5-4.5 [facility]2014-05-05 12:13:00 Test Item Value Reference Range Interpretation Comments Globulin (test code = Globulin) 2.8 2.0-4.0 [facility]2014-05-05 12:13:00 Test Item Value Reference Range Interpretation Comments A/G Ratio (test code = A/G Ratio) 1.2 0.7-1.6 [facility]2014-05-05 12:13:00 Test Item Value Reference Range Interpretation Comments B/C Ratio (test code = B/C Ratio) 10 6-25 [facility]2014-05-05 12:13:00 Test Item Value Reference Range Interpretation Comments AGAP (test code = AGAP) 6.9 10.0-20.0 [facility]2014-05-05 12:13:00 Test Item Value Reference Range Interpretation Comments eGFR (test code = eGFR) 101 [facility]2014-05-05 12:13:00 Test Item Value Reference Range Interpretation Comments Glucose Lvl (test code = Glucose Lvl) 84 70-99 [facility]2014-05-05 12:13:00 Test Item Value Reference Range Interpretation Comments Potassium Lvl (test code = Potassium 3.9 3.5-5.1 Lvl) [facility]2014-05-05 12:13:00 Test Item Value Reference Range Interpretation Comments Sodium Lvl (test code = Sodium Lvl) 141 135-145 [facility]2014-05-05 12:13:00 Test Item Value Reference Range Interpretation Comments Creatinine Lvl (test code = Creatinine 0.7 0.5-1.4 Lvl) [facility]2014-05-05 12:13:00 Test Item Value Reference Range Interpretation Comments BUN (test code = BUN) 7 7-22 [facility]2014-05-05 12:13:00 Test Item Value Reference Range Interpretation Comments Bili Total (test code = Bili Total) 0.3 0.2-1.3 [facility]2014-05-05 12:13:00 Test Item Value Reference Range Interpretation Comments Alk Phos (test code = Alk Phos) 71 39-136 [facility]2014-05-05 12:13:00 Test Item Value Reference Range Interpretation Comments AST (test code = AST) 21 See_Comment [Auto mated message] The system which ge nerated this result transmit ulysses reference range : <=37. The reference range was not used to interpr et this result as sharron l/abnormal. [facility]2014-05-05 12:13:00 Test Item Value Reference Range Interpretation Comments ALT (test code = ALT) 20 See_Comment [Auto mated message] The system which ge nerated this result transmit ulysses reference range : <=65. The reference range was not used to interpr et this result as sharron l/abnormal. [facility]2014-05-05 12:13:00 Test Item Value Reference Range Interpretation Comments Total Protein (test code = Total 6.1 6.4-8.4 Protein) [facility]2014-05-05 12:13:00 Test Item Value Reference Range Interpretation Comments CO2 (test code = CO2) 33 24-32 [facility]2014-05-05 12:13:00 Test Item Value Reference Range Interpretation Comments Albumin Lvl (test code = Albumin Lvl) 3.3 3.5-5.0 [facility]2014-05-05 12:13:00 Test Item Value Reference Range Interpretation Comments Calcium Lvl (test code = Calcium Lvl) 8.4 8.5-10.5 [facility]2014-05-05 12:13:00 Test Item Value Reference Range Interpretation Comments Chloride Lvl (test code = Chloride Lvl) 105 95-109 [facility]ervilleNegggbwATVENNQCSC4607-52-92 12:13:00 Test Item Value Reference Range Interpretation Comments Basophils # (test code 0.0 See_Comment [Aut omated message] The = Basophils #) system which generated this result tra nsmitted reference range : <=0.2. The reference r jamaica was not used to int erpret this result as normal/abnormal . [facility]ervilleTskubrdAVKMCIXQRA4792-18-71 12:13:00 Test Item Value Reference Range Interpretation Comments Segs (test code = Segs) 63.5 45.0-75.0 [facility] [place]ervilleUhnagsnUTCLMHHQVJ7523-80-43 12:13:00 Test Item Value Reference Range Interpretation Comments Monocytes # (test code 0.3 See_Comment [Aut omated message] The = Monocytes #) system which generated this result tra nsmitted reference range : <=0.8. The reference r jamaica was not used to int erpret this result as normal/abnormal . [facility]ervilleWxzhpfvCZPHXERSJD6632-08-80 12:13:00 Test Item Value Reference Range Interpretation Comments Basophils (test code = 0.2 See_Comment [Aut omated message] The Basophils) system which ge nerated this result tra nsmitted reference range : <=1.0. The reference r jamaica was not used to int erpret this result as normal/abnormal . [facility]ervilleZhmxkkxPKMOQMFZNS1887-43-74 12:13:00 Test Item Value Reference Range Interpretation Comments Lymphocytes # (test code = Lymphocytes 1.5 1.0-5.5 #) [facility] [place]ervilleFswrxsbGWSTMEMRTD9283-68-47 12:13:00 Test Item Value Reference Range Interpretation Comments Segs-Bands # (test code = Segs-Bands #) 3.3 1.5-8.1 [facility] [place]ervilleUdxrlnpVEUBBLABYC2073-17-43 12:13:00 Test Item Value Reference Range Interpretation Comments Eosinophils # (test code 0.1 See_Comment [A utomated message] The = Eosinophils #) system whic h generated this result tra nsmitted reference range : <=0.5. The reference r jamaica was not used to int erpret this result as normal/abnormal . [facility] [place]ervilleOmmnrblGCZWRJIKGF3420-31-91 12:13:00 Test Item Value Reference Range Interpretation Comments Lymphocytes (test code = Lymphocytes) 28.9 20.0-40.0 [facility] [place]ervilleBfhmahgKYDRVPUXCA6630-88-59 12:13:00 Test Item Value Reference Range Interpretation Comments Monocytes (test code = Monocytes) 6.2 2.0-12.0 [facility] [place]ervilleOwcafxxALFWJILZPG5725-83-09 12:13:00 Test Item Value Reference Range Interpretation Comments Eosinophils (test code = 1.2 See_Comment [A utomated message] The Eosinophils) system which ge nerated this result tra nsmitted reference range : <=4.0. The reference r jamaica was not used to int erpret this result as normal/abnormal . [facility] [place]ervilleEmpffkgZNVZDIHLGG2789-92-75 12:13:00 Test Item Value Reference Range Interpretation Comments MCHC (test code = MCHC) 34.3 32.0-36.0 [facility] [place]ervilleEpzskleQQILVNWONC4576-21-57 12:13:00 Test Item Value Reference Range Interpretation Comments RDW (test code = RDW) 16.5 11.5-14.5 [facility] [place]ervilleYhpoelfMONZTTZJQP6639-91-69 12:13:00 Test Item Value Reference Range Interpretation Comments MCH (test code = MCH) 31.5 pg 27.0-31.0 [facility] [place]ervilleFrcgfybLBNLUXLVJS3500-94-76 12:13:00 Test Item Value Reference Range Interpretation Comments MCV (test code = MCV) 91.9 81.0-99.0 [facility] [place]ervilleRaehfftPQOBZXVPAP8814-51-50 12:13:00 Test Item Value Reference Range Interpretation Comments Platelet (test code = Platelet) 177 133-450 [facility] [place]ugervilleKarkvovRVIIWLOEZC2488-27-52 12:13:00 Test Item Value Reference Range Interpretation Comments MPV (test code = MPV) 7.9 7.4-10.4 [id number] 12:13:00 Test Item Value Reference Range Interpretation Comments RBC (test code = RBC) 3.91 4.20-5.40 [facility] [id number] 12:13:00 Test Item Value Reference Range Interpretation Comments Hct (test code = Hct) 35.9 36.0-48.0 [id number] 12:13:00 Test Item Value Reference Range Interpretation Comments Hgb (test code = Hgb) 12.3 12.0-16.0 [id number] 12:13:00 Test Item Value Reference Range Interpretation Comments WBC (test code = WBC) 5.1 3.7-10.4 [facility] Notes Date/Time Note Provider Source 2021 17:23:00-00:00 [id number] [address] [place] [address] PATIENT NAME: RO MAYNARD ADMIT DATE: 1 ACCOUNT NO: [id number] ROOM NO: S218 AGE: 56 REPORT TYPE: CONSULTATION SEX: F ADMITTING PHYSICIAN: Jaiden Antunez MD ATTENDING PHYSICIAN: Shadi Carcamo MD CONSULTATION DATE: CONSULTING PHYSICIAN: Dawson Ramírez MD ATTENDING PHYSICIAN: Shadi Carcamo MD. REASON FOR CONSULTATION: Intractable nausea, vom iting, abdominal pain, epigastric and right upper quadrant. HISTORY OF PRESENT ILLNESS: The patient is a 56-year-old woman who has been to [facility] multiple times for similar sympt oms [...] we will try to obtain them from [employer] and plan for treatment for hepatitis C, I strong ly recommended to avoid marijuana and alcohol at this time. The patient is cleared to be discharged from GI after a small bowel follow through if no acute pathology like an obstruction is found. We will continue workup as an outpatient. WT: CON:L.BRENNA/NICOLEUM/NTS Conf#: [id number]/DID#: [id number] (ADDENDUM) Dictated By: Dawson Ramírez MD WT: CON:L.BRENNA/NICOLEUM/NTS Conf#: [id number]/DID#: [id number] Authenticated by Dawson Ramírez MD On 021 01:50:51 PM at 1351 PATIENT NAME: RO MAYNARD 9001 2021 10:28:00-00:00 [facility] ([facility]) Hospitalist Progress Note REPORT#:[id number] REPORT STATUS: Signed DATE:02/26/21 TIME:1028 PATIENT: RO MAYNARD UNIT #: [id number] ROOM/BED: [place] [address] : 63 AGE: 56 SEX: F ATTEND: Xiomara Antunez MD ADM AUTHOR: Shadi Carcamo MD * ALL edits or amendments must be made on the Phyt[employer]/computer document * Subjective Chief Complaint: No acute events Still no epigastric pain Patient has history of Quispe's esophagus Objective General VS/I O: Vital Signs: Date Time Temp Pulse Resp B/P B/P Pulse O2 O2 Flow FiO2 Mean Ox Delivery Rate 02/26 1150 98.6 59 18 136/74 94.5 92 Room air 02/26 0857 97 Room air 21 02/26 0814 98.4 55 18 130/77 94.8 92 Room air / 0444 98.8 63 14 123/76 0.0 98 07/ 0432 71 95 30 07/ 0117 68 123/77 92.5 / 0100 68 97 30 / 0041 98.2 56 14 104/67 79.2 93 07/ 2031 98.4 59 18 139/79 99.3 89 [...] % (Auto) (20.5 - 51.1 %) 28[address] [place] % (Auto) (1.7 - 9.3 %) 5.4 Eos % (Auto) (0.0 - 6.0 %) 0.3 Baso % (Auto) (0.0 - 2.0 %) 0.3 Neut # (Auto) (1.8 - 7.6 K/mm3) 2.5 Lymph # (Auto) (0.6 - 3.2 K/mm3) 1.1 [place] # (Auto) (0.3 - 1.1 K/mm3) 0.2 [...] choledocholithiasis. No biliar y dilatation. Impression By: [email or web address] - Shanna Redding MD Diagnosis, Assessment Plan [...] Carcamo MD on at 1533 RPT #: [id number] END OF REPORT 2021-02-25 17:16:00-00:00 [facility] ([facility]) Hospitalist History Physical REPORT#:[id number] REPORT STATUS: Signed DATE:02/25/21 TIME:171 PATIENT: RO MAYNARD UNIT #: [id number] [place] [address] : 63 AGE: 55 SEX: F ATTEND: Xiomara Antunez MD ADM AUTHOR: Jaiden Antunez MD * ALL edits or amendments must be made on the el [employer]/computer document * History of Present Illness HPI [...] years ago in [place] but for the pa 4 years she has not been able to get her treated since she moved to [place] She also has rheumatoid arthritis for which [...] % (Auto) (20.5 - 51.1 %) [address] [place] % (Auto) (1.7 - 9.3 %) 7.4 Eos % (Auto) (0.0 - 6.0 %) 0.8 Baso % (Auto) (0.0 - 2.0 %) 0.2 Neut # (Auto) (1.8 - 7.6 K/mm3) 3.1 Lymph # (Auto) (0.6 - 3.2 K/mm3) 1.8 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) EMERGENCY PROVIDER REPORT REPORT#:[id number] REPORT STATUS: Signed DATE:02/25/21 TIME:1333 PATIENT: RO MAYNARD UNIT #: [id number] ROOM/BED: [place] [address] : 63 AGE: 55 SEX: F PCP PHYS: Willian Escalante MD SERVICE AUTHOR: Bhavna Mulligan * ALL edits or amendments must be made on the [employer]/[facility] document * HPI-Abd Pain F 40 and Over General Initial Greet Date/Time 02/25/21 1309 Presentation Chief Complaint Abdominal pain Sudden in Onset? No Free Text HPI Notes Free Text HPI Notes 55-year-old female past [facility] history of rheumatoid arthritis, Crohn's disease , hepatitis C status post hy sterectomy, appendectomy, and bladder sling surgery reports to ED complaining of right-sided abdominal pain for the past week which is getting worse she says it now radiates to her periumbilical area. She has associated nausea, vomiting, and diarrhea. She w as seen and evaluated at [facility] yesterday where s he had an ultrasound and a CT. Patient states there were no gallstones but does not note any further particulars on the results. She followed up with her PCP, Dr John Escalante, today in clinic who advised her to come to [facility] ER for further work-up and [...] % (Auto) (20.5 - 51.1 %) 33.6 [place] % (Auto) (1.7 - 9.3 %) 7.4 Eos % (Auto) (0.0 - 6.0 %) 0.8 Baso % (Auto) (0.0 - 2.0 %) 0.2 Neut # (Auto) (1.8 - 7.6 K/mm3) 3.1 Lymph # (Auto) (0.6 - 3.2 K/mm3) 1.8 [place] # (Auto) (0.3 - 1.1 K/mm3) 0.4 [...] - 7.0 pH UNITS) 7.0 Ur Specific Langdon (1.005 - 1.030 SG) <=1.005 Urine Protein [...] Statement Laboratory studies reviewed and considered in th e medical decision-making. Re-Evaluation MDM Free Text [...] Consultation Consultation Referral/Consult Name Dawson Ramírez MD Talent Acquisition Specialist Called Gastroenterology Requested Call Time 1448 Requested Call Date 02/25/21 Call Returned Call returned Call Returned Time 1505 Call Returned Date 02/25/21 Talent Acquisition Specialist Will see patient, Agrees with plan Free [...] communicated with the staff or medical p daniaer taking over this patient's care. Electronically Signed by Bhavna Mulligan on 09/17 at 1536 RPT #: [id number] END OF REPORT 2021-02-25 13:33:00-00:00 [facility] ([facility]) EMERGENCY PROVIDER REPORT REPORT#:[id number] REPORT STATUS: Signed DATE:02/25/21 TIME:1332 PATIENT: RO MAYNARD UNIT #: [id number] ROOM/BED: [place] [address] : 63 AGE: 55 SEX: F PCP PHYS: Willian Escalante MD SERVICE AUTHOR: Bhavna Mulligan * ALL edits or amendments must be made on the Phytel/computer document * Bhavna Mulligan 02/25/21 1333: HPI-Abd [...] She w as seen and evaluated at [facility] yesterday where s he had an ultrasound and a CT. Patient states there were no gallstones but does not note any further particulars on the results. She followed up with her PCP, Dr John Escalante, today in clinic who advised her to come to [facility] ER for further work-up and [...] 89 / 1304 O2 Delivery Room air 07/ 1304 Temp 36.5 / 1304 Pulse 72 / 1304 Resp 18 02/25 1304 Review of [...] % (Auto) (20.5 - 51.1 %) 33.6 [place] % (Auto) (1.7 - 9.3 %) 7.4 Eos % (Auto) (0.0 - 6.0 %) 0.8 Baso % (Auto) (0.0 - 2.0 %) 0.2 Neut # (Auto) (1.8 - 7.6 K/mm3) 3.1 Lymph # (Auto) (0.6 - 3.2 K/mm3) 1.8 [place] # (Auto) (0.3 - 1.1 K/mm3) 0.4 [...] - 7.0 pH UNITS) 7.0 Ur Specific Langdon (1.005 - 1.030 SG) <=1.005 Urine Protein [...] 1,000 ML X1ED STA 02/25 1315 DC 07/ IV 02/25 1415 1342 Gastrointestinal Drugs Sig/Jasmina Start time Last Medication Dose Route Stop Time Status Admin Ondansetron HCl 4 MG X1ED PRN PRN 02/25 1315 DC 02/25 IV 02/26 1314 1342 Consultation Consultation Referral/Consult Name Dawson Ramírez MD Talent Acquisition Specialist Called Gastroenterology Requested Call Time 1448 Requested Call Date 02/25/21 Call Returned Call returned Call Returned Time 1505 Call Returned Date 02/25/21 Talent Acquisition Specialist Will see patient, Agrees with plan Free [...] 72 07/ 1304 Resp 18 / 1304 Last Documented: Result Date Time Pulse Ox 100 / 1304 B/P 130/69 07/01 1304 B/P Mean 89 / 1304 O2 Delivery Room air 07/ 1304 Temp 36.5 07/ 1304 Pulse 72 07/ 1304 Resp 18 / 1304 All vital signs available at the [...] Saw Pt Alone 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 I was available for consultation as needed at al l times during the patient's visit in the emergency department. I agree with the clinical impression , plan and disposition. Electronically Signed by Bhavna Mulligan on 09/17 at 1536 Electronically Signed by Ezekiel Prakash DO on 09/17 at 1739 RPT #: [id number] END OF REPORT 2015-02-04 10:25:00-00:00 MRI lumbar spine without contrast. LAZARAD Patience HISTORY: Lumbago. Increasing right leg numbness, [...] 2015-02-04 10:25:00-00:00 MRI lumbar spine without contrast. LINDA OPID Patience HISTORY: Lumbago. Increasing right leg [...] 2015-02-04 10:25:00-00:00 MRI lumbar spine without contrast. LINDA OPID Patience HISTORY: Lumbago. Increasing right leg [...] herniation SL: 2015-01-05 10:14:32-00:00 SACROILIAC JOINT SERIES [facility] CLINICAL HISTORY: Low back pain. COMPARISON IMAGING: [...] identified. No evidence of elbow joint effusion. [facility] Right elbow 2 views: No acut e osseous injury or arthritis identified. No joint effusion identified. IMPRESSION: 1. Unremarkable exam. 2015-01-05 10:14:32-00:00 SACROILIAC JOINT SERIES [facility] CLINICAL HISTORY: Low back pain. COMPARISON IMAGING: [...] identified. No evidence of elbow joint effusion. [facility] Right elbow 2 views: No acut e osseous injury or arthritis identified. No joint effusion identified. IMPRESSION: 1. Unremarkable exam. 2015-01-05 10:14:32-00:00 SACROILIAC JOINT SERIES [facility] CLINICAL HISTORY: Low back pain. COMPARISON IMAGING: [...] identified. No evidence of elbow joint effusion. [facility] Right elbow 2 views: No acut e osseous injury or arthritis identified. No joint effusion identified. IMPRESSION: 1. Unremarkable exam. 2015-01-05 10:14:32-00:00 SACROILIAC JOINT SERIES [facility] CLINICAL HISTORY: Low back pain. COMPARISON IMAGING: [...] identified. No evidence of elbow joint effusion. [facility] Right elbow 2 views: No acut e osseous injury or arthritis identified. No joint effusion identified. IMPRESSION: 1. Unremarkable exam. 2015-01-05 10:14:32-00:00 SACROILIAC JOINT SERIES [facility] CLINICAL HISTORY: Low back pain. COMPARISON IMAGING: [...] identified. No evidence of elbow joint effusion. [facility] Right elbow 2 views: No acut e osseous injury or arthritis identified. No joint effusion identified. IMPRESSION: 1. Unremarkable exam. 2014-05-20 07:04:16-00:00 STUDY: Chest one view. [facility] COMPARISON: None HISTORY: Hypertension. FINDINGS: The lungs are clear. No dens e focal consolidation is seen. No pleural effusion or pneumothorax is seen. The heart is normal in size. The osseous structures are unremarkable. IMPRESSION: No acute cardiopulmonary process. 2014-05-20 07:04:16-00:00 STUDY: Chest one view. [facility] COMPARISON: None HISTORY: Hypertension. FINDINGS: The lungs are clear. No dens e focal consolidation is seen. No pleural effusion or pneumothorax is seen. The heart is normal in size. The osseous structures are unremarkable. IMPRESSION: No acute cardiopulmonary process. 2014-05-20 07:04:16-00:00 STUDY: Chest one view. [facility] COMPARISON: None HISTORY: Hypertension. FINDINGS: The lungs are clear. No dens e focal consolidation is seen. No pleural effusion or pneumothorax is seen. The heart is normal in size. The osseous structures are unremarkable. IMPRESSION: No acute cardiopulmonary process. 2014-05-20 07:04:16-00:00 STUDY: Chest one view. [facility] COMPARISON: None HISTORY: Hypertension. FINDINGS: The lungs are clear. No dens e focal consolidation is seen. No pleural effusion or pneumothorax is seen. The heart is normal in size. The osseous structures are unremarkable. IMPRESSION: No acute cardiopulmonary process. 2014-05-20 07:04:16-00:00 STUDY: Chest one view. [facility] COMPARISON: None HISTORY: Hypertension. FINDINGS: The lungs are clear. No dens e focal consolidation is seen. No pleural effusion or pneumothorax is seen. The heart is normal in size. The osseous structures are unremarkable. IMPRESSION: No acute cardiopulmonary process. 2014-01-02 09:12:00-00:00 HISTORY: Abdominal pain. [facility] Two views abdomen. Comparison 01/01/2014. Resid ual contrast within the colon unchanged from previous. No small bowel distention or obstruction identified. No fluid level or free air. There are atelectatic changes in both lung bases. SL:13 2014-01-02 09:12:00-00:00 HISTORY: Abdominal pain. [facility] Two views abdomen. Comparison 01/01/2014. Resid ual contrast within the colon unchanged from previous. No small bowel distention or obstruction identified. No fluid level or free air. There are atelectatic changes in both lung bases. SL:13 2014-01-02 09:12:00-00:00 HISTORY: Abdominal pain. [facility] Two views abdomen. Comparison 01/01/2014. Resid ual contrast within the colon unchanged from previous. No small bowel distention or obstruction identified. No fluid level or free air. There are atelectatic changes in both lung bases. SL:13 2014-01-02 09:12:00-00:00 HISTORY: Abdominal pain. [facility] Two views abdomen. Comparison 01/01/2014. Resid ual contrast within the colon unchanged from previous. No small bowel distention or obstruction identified. No fluid level or free air. There are atelectatic changes in both lung bases. SL:2014-01-02 09:12:00-00:00 HISTORY: Abdominal pain. [facility] Two views abdomen. Comparison 01/01/2014. Resid ual contrast within the colon unchanged from previous. No small bowel distention or obstruction identified. No fluid level or free air. There are atelectatic changes in both lung bases. SL:2014-01-01 08:00:00-00:00 ABDOMEN 2 VIEWS: There is no bowel distention. Contrast in the colon is seen with further transit and partial clearance since the exam on the previous day. There is no evidence of pneumoperitoneum. There are no other changes. [facility] SL:2014-01-01 08:00:00-00:00 ABDOMEN 2 VIEWS: There is no bowel distention. Contrast in the colon is seen with further transit and partial clearance since the exam on the previous day. There is no evidence of pneumoperitoneum. There are no other changes. [facility] SL:2014-01-01 08:00:00-00:00 ABDOMEN 2 VIEWS: There is no bowel distention. Contrast in the colon is seen with further transit and partial clearance since the exam on the previous day. There is no evidence of pneumoperitoneum. There are no other changes. [facility]:13 2014-01-01 08:00:00-00:00 ABDOMEN 2 VIEWS: There is no bowel distention. Contrast in the colon is seen with further transit and partial clearance since the exam on the previous day. There is no evidence of pneumoperitoneum. There are no other changes. [facility]:13 2014-01-01 08:00:00-00:00 ABDOMEN 2 VIEWS: There is no bowel distention. Contrast in the colon is seen with further transit and partial clearance since the exam on the previous day. There is no evidence of pneumoperitoneum. There are no other changes. [facility]:13
[2023-04-01] MEDS ORDERED: ONDANSETRON 4 MG/2 ML VIAL ONE (10:18)
[2023-04-01] MEDS ORDERED: MORPHINE 4 MG/ML SYR ONE ×2 (10:18→12:40)
[2023-04-01] MEDS ORDERED: NA CHLORIDE 0.9% 1,000 ML ONE (10:18)
[2023-04-01 10:28] LABS: Absolute Lymphocytes (CBC) 1.8 K/uL (0.7-4.9); Hematocrit 39.8 % (36.0-45.0); Lymphocytes % 30.9 % (15.3-44.8); MPV 8.1 fL (7.6-11.3); RBC Red Blood Cell Count 4.32 M/uL (3.86-4.86)
[2023-04-01 10:47] LABS: Albumin 3.4 g/dL (3.4-5.0); Bilirubin Total 0.5 mg/dL (0.2-1.0); Protein, Total 7.6 g/dL (6.4-8.2)
--- NOTE | 2023-04-01 11:26 | RAD REPORT ---
EXAM DESCRIPTION: CTAbdomen Pelvis W Contrast - 04/01/2023 11:20 am CLINICAL HISTORY: Abdominal pain. ABD PAIN COMPARISON: <Comparisons> TECHNIQUE: Biphasic CT imaging of the abdomen and pelvis was performed with 100 ml non-ionic IV cont rast. All CT scans are performed using dose optimization technique as appropriate and may include automated exposure control or mA/KV adjustment according to patient size. FINDINGS: Mild linear atelectasis in both posterior lung bases. The liver, spleen, pancreas, adrenal glands and kidneys are within normal limits. No bowel obstruction, free air, free fluid or abscess. Small fat containing umbilical hernia. The judith endix is not identified as a discrete structure, however, no secondary findings of appendicitis are i dentified. Aortic atherosclerosis. No evidence of significant lymphadenopathy. No suspicious bony findings. IMPRESSION: No acute intra-abdominal or pelvic finding. Small fat containing umbilical hernia.
[2023-04-01 11:43] LABS: Specific Gravity 1.019 (1.005-1.030); Urine Bilirubin NEGATIVE (Negative); Urine Blood Negative (Negative); Urine Clarity Clear (Clear); Urine Color Light-Yellow (Yellow); Urine Glucose NEGATIVE (Negative); Urine Protein NEGATIVE (Negative); Urine Urobilinogen Normal (Normal)
--- NOTE | 2023-04-01 12:21 | EDPHYS ---
Physician Documentation [facility] Name: Tita Elizabeth Age: 58 yrs Sex: Female : 1965 Arrival Date: 04/01/2023 Time: 09:41 Bed 18 Private MD: ED Physician Eldon Jung HPI: 04/01 15:07 This 58 yrs old Female presents to ER via Ambulatory with complaints of Flank Pain - kb left. 15:08 The patient presents with abdominal pain left lateral abd. Onset: The symptoms/episode kb began/occurred 4 day(s) ago. The symptoms do not radiate. Associated signs and symptoms: Pertinent positives: nausea. The symptoms are described as constant. Modifying factors: The symptoms are alleviated by nothing, the symptoms are aggravated by pressure. Severity of pain: At its worst the pain was moderate in the emergency department the pain is unchanged. The patient has experienced a previous episode. The patient has been recently seen by a physician: the patient's primary care provider, The patient has been recently seen at the [facility] Emergency Department, this week, for similar complaints. Pt reports left lateral abd pain that started on Monday. sTates she was seen by PCP on Monday and started on zithromax. Came here on and had a normal workup. BAck today because pain has continued. . Historical: - Allergies: 10:05 Sulfa (Sulfonamide Antibiotics); iw - Home Meds: 10:05 aspirin 81 mg Oral capsule 1 cap once [Active]; atorvastatin Oral once for iw Hyperlipidemia [Active]; dicyclomine 10 mg Oral capsule 1 cap [Active]; Hydrocodone-Acetaminophen Oral once [Active]; losartan Oral 1 tab once [Active]; Methocarbamol Oral [Active]; - PMHx: 10:05 Arthritis; Colitis; Crohn's Disease; HTN; iw - PSHx: 10:05 Appendectomy; hysterectomy; kyphoplasty; Neck surgery, titanium cage; Tonsillectomy; iw - Immunization history:: Adult Immunizations. - Social history:: Smoking status: Patient reports the use of cigarette tobacco products. ROS: 15:07 Constitutional: Negative for fever, chills, and weight loss. kb 15:07 Abdomen/GI: Positive for abdominal pain. 15:07 All other systems are negative. Exam: 15:07 Constitutional: This is a well developed, well nourished patient who is awake, alert, kb and in no acute distress. Head/Face: Normocephalic, atraumatic. ENT: Moist Mucous membranes Cardiovascular: Regular rate and rhythm with a normal S1 and S2. No gallops, murmurs, or rubs. No pulse deficits. Respiratory: Respirations even and unlabored. No increased work of breathing. Talking in full sentences Skin: Warm, dry with normal turgor. Normal color. MS/ Extremity: Pulses equal, no cyanosis. Neurovascular intact. Full, normal range of motion. Neuro: Awake and alert, GCS 15, oriented to person, place, time, and situation. Moves all extremities. Normal gait. 15:07 Abdomen/GI: Inspection: scar(s), Bowel sounds: normal, Palpation: soft, in all quadrants, moderate abdominal tenderness, in the posterior aspect of left lateral abdomen and anterior aspect of left lateral abdomen. Vital Signs: 10:03 BP 114 / 74; Pulse 54; Resp 16; Pulse Ox 99% on R/A; Weight 58.97 kg; Height 5 ft. 0 iw in. ; Pain 9/10; 10:15 BP 110 / 74; Pulse 52; Resp 18; Pulse Ox 95% on R/A; db 10:30 BP 116 / 66; Pulse 54; Resp 18; Pulse Ox 94% on R/A; db 11:30 BP 137 / 75; Pulse 52; Resp 18; Pulse Ox 100% on R/A; db 12:30 BP 98 / 84; Pulse 53; Resp 16; Pulse Ox 95% on R/A; db 10:03 Body Mass Index 25.39 (58.97 kg, 152.4 cm) iw 10:03 Pain Scale: Adult iw MDM: 09:51 Patient medically screened. kb 15:08 Data reviewed: vital signs, nurses notes. kb 15:11 Differential diagnosis: diverticulitis, non-specific abd pain, Pyelonephritis, urinary kb tract infection. Historians other than the Patient: Spouse/Significant Other: . Counseling: I had a detailed discussion with the patient and/or guardian regarding: the historical points, exam findings, and any diagnostic results supporting the discharge/admit diagnosis, lab results, radiology results, the need for outpatient follow up, a family practitioner, to return to the emergency department if symptoms worsen or persist or if there are any questions or concerns that arise at home. 04/01 10:01 Order name: CBC with Diff; Complete Time: 10:31 kb 04/01 10:01 Order name: CMP; Complete Time: 10:52 kb 04/01 10:01 Order name: Lipase; Complete Time: 10:52 kb 04/01 10:01 Order name: Urinalysis w/ reflexes kb 04/01 10:01 Order name: CT Abd/Pelvis - IV Contrast Only; Complete Time: 11:27 kb 04/01 10:01 Order name: IV Saline Lock; Complete Time: 10:23 kb 04/01 10:01 Order name: Labs collected and sent; Complete Time: 10:23 kb Administered Medications: 10:16 Drug: NS 0.9% IV 1000 ml Route: IV; Rate: 1 bolus; Site: right antecubital; db 12:58 Follow up: Response: No adverse reaction; IV Status: Completed infusion; IV Intake: db 1000ml 10:17 Drug: Ondansetron IVP 4 mg Route: IVP; Site: right antecubital; db 12:58 Follow up: Response: No adverse reaction db 10:17 Drug: morphine IVP or IV 4 mg Route: IVP; Infused Over: 4 mins; Site: right antecubital;db 12:58 Follow up: Response: No adverse reaction db 12:34 Drug: morphine IVP or IV 4 mg Route: IVP; Infused Over: 4 mins; Site: right antecubital;dd1 12:58 Follow up: Response: No adverse reaction db Disposition: 19:15 I reviewed the patient's care provided by Advanced Practice Provider \T\ agree w/ the cp3 diagnosis \T\ care plan. I personally saw the pt \T\ performed a substantive portion of the visit, incldng all aspects of the (History/Exam/Medical Decision Making). Disposition Summary: 04/01/23 12:21 Discharge Ordered Location: Home kb Condition: Stable kb Diagnosis - Abdominal pain, unspecified - left lateral kb Followup: kb - With: Emergency Department - When: As needed - Reason: Worsening of condition Followup: kb - With: Private Physician - When: 2 - 3 days - Reason: Recheck today's complaints, Continuance of care, Re-evaluation by your physician Discharge Instructions: - Discharge Summary Sheet kb - Abdominal Pain, Adult, Arzt-bl-Draw kb Forms: - Medication Reconciliation Form kb - Thank You Letter kb - Antibiotic Education kb - Prescription Opioid Use kb - Patient Portal Instructions kb Signatures: Dispatcher [employer] Renetta Kramer FNP-C FNP-Ckb Pinckney, Cwanza, MD MD cp3 Gisele Pan, RN RN iw Jackie Vallecillo, RN RN db Juan Chavez RN RN dd1
--- NOTE | 2023-04-01 12:21 | ER ---
Nurse's Notes [facility] Name: Tita Elizabeth Age: 58 yrs Sex: Female : 1965 Arrival Date: 04/01/2023 Time: 09:41 Bed 18 Private MD: Diagnosis: Abdominal pain, unspecified-left lateral Presentation: 04/01 10:03 Chief complaint: Patient states: left flank pain since Monday . hx of Crohns, Dr. carol roberto put her on antibiotics , pt denies urinary s/s/ , denies n/v. Coronavirus screen: At this time, the client does not indicate any symptoms associated with coronavirus-19. Ebola Screen: Patient negative for fever greater than or equal to 101.5 degrees Fahrenheit, and additional compatible Ebola Virus Disease symptoms Patient denies exposure to infectious person. Patient denies travel to an Ebola-affected area in the 21 days before illness onset. No symptoms or risks identified at this time. Initial Sepsis Screen: Does the patient meet any 2 criteria? No. Patient's initial sepsis screen is negative. Does the patient have a suspected source of infection? No. Patient's initial sepsis screen is negative. Risk Assessment: Do you want to hurt yourself or someone else? Patient reports no desire to harm self or others. Onset of symptoms was March 29, 2023. 10:03 Method Of Arrival: Ambulatory iw 10:03 Acuity: JAY 3 iw Triage Assessment: 12:56 General: Appears in no apparent distress. uncomfortable, Behavior is cooperative. db Historical: - Allergies: 10:05 Sulfa (Sulfonamide Antibiotics); iw - Home Meds: 10:05 aspirin 81 mg Oral capsule 1 cap once [Active]; atorvastatin Oral once for iw Hyperlipidemia [Active]; dicyclomine 10 mg Oral capsule 1 cap [Active]; Hydrocodone-Acetaminophen Oral once [Active]; losartan Oral 1 tab once [Active]; Methocarbamol Oral [Active]; - PMHx: 10:05 Arthritis; Colitis; Crohn's Disease; HTN; iw - PSHx: 10:05 Appendectomy; hysterectomy; kyphoplasty; Neck surgery, titanium cage; Tonsillectomy; iw - Immunization history:: Adult Immunizations. - Social history:: Smoking status: Patient reports the use of cigarette tobacco products. Screenin:[address] [facility] ED Fall Risk Assessment (Adult) History of falling in the last 3 months, db including since admission No falls in past 3 months (0 pts) Confusion or Disorientation No (0 pts) Intoxicated or Sedated No (0 pts) Impaired Gait No (0 pts) Mobility Assist Device Used No (0 pt) Altered Elimination No (0 pt) Score/Fall Risk Level 0 - 2 = Low Risk Oriented to surroundings, Maintained a safe environment. Abuse screen: Denies threats or abuse. Denies injuries from another. Nutritional screening: No deficits noted. Nutritional screening: No deficits noted. Tuberculosis screening: No symptoms or risk factors identified. Assessment: 10:15 Reassessment: Patient appears in no apparent distress at this time. Patient and/or db family updated on plan of care and expected duration. Pain level reassessed. Patient is alert, oriented x 3, equal unlabored respirations, skin warm/dry/pink. General: Appears in no apparent distress. comfortable, Behavior is calm, cooperative. Pain: Complains of pain in abdomen. Neuro: Level of Consciousness is awake, alert, obeys commands, Oriented to person, place, time, situation. Respiratory: Airway is patent Respiratory effort is even, unlabored, Respiratory pattern is regular, symmetrical. GI: Abdomen is flat, non-distended, Reports upper abdominal pain. 11:25 Reassessment: PATIENT AMBULATORY TO RESTROOM. db Vital Signs: 10:03 BP 114 / 74; Pulse 54; Resp 16; Pulse Ox 99% on R/A; Weight 58.97 kg; Height 5 ft. 0 iw in. ; Pain 9/10; 10:15 BP 110 / 74; Pulse 52; Resp 18; Pulse Ox 95% on R/A; db 10:30 BP 116 / 66; Pulse 54; Resp 18; Pulse Ox 94% on R/A; db 11:30 BP 137 / 75; Pulse 52; Resp 18; Pulse Ox 100% on R/A; db 12:30 BP 98 / 84; Pulse 53; Resp 16; Pulse Ox 95% on R/A; db 10:03 Body Mass Index 25.39 (58.97 kg, 152.4 cm) iw 10:03 Pain Scale: Adult iw ED Course: 09:44 Patient arrived in ED. im 09:45 Renetta Orantes FNP-C is PHCP. kb 09:45 Eldon Jung MD is Attending Physician. kb 09:57 Jackie Vallecillo, RN is Primary Nurse. db 10:05 Triage completed. iw 10:05 Arm band placed on. iw 10:15 Inserted saline lock: 20 gauge in right antecubital area, using aseptic technique. db Blood collected. 10:25 Patient has correct armband on for positive identification. Bed in low position. Call db light in reach. Side rails up X 1. 11:22 CT Abd/Pelvis - IV Contrast Only In Process Unspecified. EDMS 12:56 No provider procedures requiring assistance completed. IV discontinued, intact, db bleeding controlled, No redness/swelling at site. 12:57 Provided Education on: DISCHARGE. db Administered Medications: 10:16 Drug: NS 0.9% IV 1000 ml Route: IV; Rate: 1 bolus; Site: right antecubital; db 12:58 Follow up: Response: No adverse reaction; IV Status: Completed infusion; IV Intake: db 1000ml 10:17 Drug: Ondansetron IVP 4 mg Route: IVP; Site: right antecubital; db 12:58 Follow up: Response: No adverse reaction db 10:17 Drug: morphine IVP or IV 4 mg Route: IVP; Infused Over: 4 mins; Site: right antecubital;db 12:58 Follow up: Response: No adverse reaction db 12:34 Drug: morphine IVP or IV 4 mg Route: IVP; Infused Over: 4 mins; Site: right antecubital;dd1 12:58 Follow up: Response: No adverse reaction db Medication: 12:57 VIS not applicable for this client. db Intake: 12:58 IV: 1000ml; Total: 1000ml. db Outcome: 12:21 Discharge ordered by . kb 12:57 Discharged to home ambulatory, with family. db 12:57 Condition: stable 12:57 Discharge instructions given to patient, Instructed on discharge instructions, follow up and referral plans. 12:59 Patient left the ED. db Signatures: Dispatcher [employer] EDMS Renetta Orantes, SUPERVISOR ACCOUNTING CLERKS-C SUPERVISOR ACCOUNTING CLERKS-CkGisele Larkin, DALJIT RN iw Jackie Vallecillo, RN RN db Alexandra Ramos Daniel, RN RN dd1
[2023-04-01 13:43] VITALS: BP 98/84; O2SAT 95
== END 2023-04-01 12:59 | disposition home or self-care (01) ==
LOC: ER 09:41
DX: R10.32 Left lower quadrant pain (principal); R11.0 Nausea; I10 Essential (primary) hypertension; Z72.0 Tobacco use; Z88.2 Allergy status to sulfonamides; Z79.82 Long term (current) use of aspirin
CPT/HCPCS: 96361; 85025; 36415; 81003; 83690; 80053; 74177; 96375; 96374; 99284; Q9967; J2405; J7030

== ENCOUNTER 2023-05-15 17:33 | Observation (INO) | payer OTHER ==
--- OUTSIDE RECORDS SUMMARY | 2023-05-15 18:22 | XMS REPORT | Continuity of Care Document ---
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 2021-08 No 50mg QD Take [address] [facility] succinate 0-25 10-25 by [facility] (TOPROL-XL) 15:46: 00:00 daily. Med ical 50 MG 24 hr 33 :00 [place] tablet losartan 2021-08- No 100mg QD Take [address] [facility] (COZAAR) 25 0-25 10-25 mg by [facility] tablet 15:46: 00:00 mouth Medica l 33 :00 daily . [place] atorvastati 2021-08- No 40mg QD Take [address] [facility] (LIPITOR) 0-25 10-25 by mouth Janine es 40 MG 15:46: 00:00 daily. Medical tablet 33 :00 [place] metoprolol 2021-08- No 50mg QD Take 50 [...] 15:46: 00:00 daily. Medical tablet 33 :00 [place] metoprolol 2021-08- No 50mg QD Take 50 [...] 15:46: 00:00 daily. Medical tablet 33 :00 [place] metoprolol 2021-08- No 50mg QD Take [address] [facility] succinate 0-25 10-25 by [facility] (TOPROL-XL) 15:46: 00:00 daily. Med ical 50 MG 24 hr 33 :00 [place] tablet losartan 2021-08- No 100mg QD Take [address] [facility] (COZAAR) 25 0-25 10-25 mg by [facility] MG tablet 15:46: 00:00 mouth Medica l 33 :00 daily . Center atorvastati 2021-08- No 40mg QD Take [address] [facility] (LIPITOR) 0-25 10-25 by mouth Janine es 40 MG 15:46: 00:00 daily. Medical tablet 33 :00 [place] metoprolol 2021-08- No 50mg QD Take [address] [facility] succinate 0-25 10-25 by [facility] (TOPROL-XL) 15:46: 00:00 daily. Med ical 50 MG 24 hr 33 :00 [place] tablet losartan 2021-08- No 100mg QD Take [...] mouth Medica l 33 :00 daily . [place] atorvastati 2021-08- No 40mg QD Take [address] [facility] (LIPITOR) 0-25 10-25 by mouth Janine es 40 MG 15:46: 00:00 daily. Medical tablet 33 :00 [place] metoprolol 2021-08 No 50mg QD Take [address] [facility] succinate 0-25 10-25 by [facility] (TOPROL-XL) 15:46: 00:00 daily. Med ical 50 MG 24 hr 33 :00 [place] tablet losartan 2021-08 No 100mg QD Take [address] [facility] [address] (COZAAR) 25 0-25 10-25 mg by [facility] MG tablet 15:46: 00:00 mouth Medica l 33 :00 daily . Center atorvastati 2021-08- No 40mg QD Take [address] [facility] (LIPITOR) 0-25 10-25 by mouth Janine es 40 MG 15:46: 00:00 daily. Medical tablet 33 :00 [place] metoprolol 2021-08 No 50mg QD Take [address] [facility] succinate 0-25 10-25 by [facility] (TOPROL-XL) 15:46: 00:00 daily. Med ical 50 MG 24 hr 33 :00 Center tablet losartan 2021-08- 100mg QD Take [address] [facility] (COZAAR) 25 0-25 10-25 mg by [facility] tablet 15:46: 00:00 mouth Medica l 33 :00 daily . Center omeprazole 2021-08 Yes 20mg QD Take [address] (PriLOSEC) 0-25 by [facility] 20 MG 14:44: daily. Medical capsule 41 Center guaiFENesin 2021-08 Yes 1200mg QD Take 1,[address] [facility] 1,200 mg 0-25 mg by [facility] Ta12 14:44: mouth Medical 41 daily. [place] HYDROcodone 2021-08 Yes 1{tbl} Take [address] -acetaminop 0-25 tablet by Janine mya adkins (NORCO 14:42: mouth Medica l 7.5-325) 01 every 6 Center 7.5-325 mg (six) per tablet hours as needed for Pain. eszopiclone 2021-08 Yes 3mg Take [address] (LUNESTA) 2 0-25 by mouth Luke s MG tablet 14:42: every Medical 01 night as Center needed Take immediatel y before bedtime. . atorvastati 2021-08 Yes 40mg QD Take [address] [facility] (LIPITOR) 0-25 tablet (40 Norma kes 40 MG 00:00: mg total) Medical tablet 00 by mouth Center daily. losartan 25 2021-08 Yes 100mg Take 4 Uni vers mg tablet 0-25 tablets by ity of 00:00: mouth. [address] atorvastati 2021-08 Yes 40mg Take 1 Univ ers n 40 mg 0-25 tablet by ity of tablet 00:00: mouth. [address] losartan 25 2021-08 Yes 100mg Take 4 Uni vers mg tablet 0-25 tablets by ity of 00:00: mouth. [address] atorvastati 2021-08 Yes 40mg Take 1 Univ ers n 40 mg 0-25 tablet by ity of tablet 00:00: mouth. [address] losartan 25 2021-08 Yes 100mg Take 4 Uni vers mg tablet 0-25 tablets by ity of 00:00: mouth. [address] atorvastati 2021-08 Yes 40mg Take 1 Univ ers n 40 mg 0-25 tablet by ity of tablet 00:00: mouth. [address] losartan 25 2021-08 Yes 100mg Take 4 Uni vers mg tablet 0-25 tablets by ity of 00:00: mouth. [address] atorvastati 2021-08 Yes 40mg Take 1 Univ ers n 40 mg 0-25 tablet by ity of tablet 00:00: mouth. [address] losartan 2021-08 Yes 100mg QD Take [...] Medical tablet 00 by mouth Center daily. atorvastati 2021-08 Yes 40mg QD Take [address] [facility] (LIPITOR) 0-25 tablet (40 Norma kes 40 MG 00:00: mg total) Medical tablet 00 by mouth Center daily. aspirin 81 2021-08- No 81mg Take 1 Univ ers mg EC 0-25 10-26 tablet by ity of tablet 00:00: 04:59 mouth. [place] 00 :00 Medical Branch aspirin 81 2021-083- No 81mg Take 1 Univ ers mg EC 0-25 10-26 tablet by ity of tablet 00:00: 04:59 mouth. [place] 00 :00 Medical Branch aspirin 81 2021- 2023- No 81mg Take 1 Univ ers mg EC 0-25 10-26 tablet by ity of tablet 00:00: 04:59 mouth. [place] 00 :00 Medical Branch aspirin 81 2021-083- No 81mg Take 1 Univ ers mg EC 0-25 10-26 tablet by ity of tablet 00:00: 04:59 mouth. [place] 00 :00 Medical Branch aspirin 81 2021-08 2023- No 81mg QD Take [address] [facility] [...] al 00 :00 by mouth Center daily. losartan 2021-2022- No 100mg QD Take 4 [facility] 25 0-25 07-18 tablets Luke [facility] MG tablet 00:00: 00:00 (100 mg Medi yesy 00 :00 total) by Center mouth daily. losartan 2021-08- No 100mg QD Take 4 [facility] 25 0-25 07-18 tablets [facility] MG tablet 00:00: 00:00 (100 mg Medi yesy 00 :00 total) by Center mouth daily. ALPRAZolam 2021-08- No .5mg Take [address] [facility] (XANAX) 0.5 0-25 11-24 tablet [facility] tablet 00:00: 23:59 (0.5 mg Medi yesy 00 :00 total) by Center mouth 2 (two) times daily as needed for Anxiety for up to 30 days. Max Daily Amount: 1 mg ALPRAZolam 2022-1 2022- No .5mg Take [address] [facility] (XANAX) 0.5 0-25 11-24 tablet [facility] MG tablet 00:00: 23:59 (0.5 mg Medi yesy 00 :00 total) by Center mouth 2 (two) times daily as needed for Anxiety for up to 30 days. Max Daily Amount: 1 mg ALPRAZolam 2021-082- No .5mg Take [address] [facility] (XANAX) [...] QD Take [address] [facility] succinate 0-25 - tablet (50 Janine es (TOPROL-XL) 00:00: 00:00 mg total) Medical 50 MG 24 hr 00 :00 by mouth Cent er tablet daily. metoprolol 2021-08 No 50mg QD Take [address] [facility] succinate 0-25 - tablet (50 Janine es (TOPROL-XL) 00:00: 00:00 mg total) Medical 50 MG 24 hr 00 :00 by mouth Cent er tablet daily. metoprolol 2021-08 50mg QD Take [address] [facility] succinate 0-25 - tablet (50 Janine es (TOPROL-XL) 00:00: 00:00 mg total) Medical 50 MG 24 hr 00 :00 by mouth Cent er tablet daily. metoprolol 2021-08 50mg QD Take [address] [facility] succinate 0-25 - tablet (50 Janine es (TOPROL-XL) 00:00: 00:00 [...] by mouth Cent er tablet daily. metoprolol 2022-1 2022- No 50mg QD Take [address] [facility] succinate 0-25 11-09 tablet (50 Jannie es (TOPROL-XL) 00:00: 00:00 mg total) Medical [...] .5mg Take [address] [facility] (XANAX) 0.5 05-16 1025 tablet [facility] MG tablet 00:00: 00:00 (0.5 mg Medi yesy 00 :00 total) by Center mouth 3 (three) times daily as needed for Anxiety for up to 10 doses. Max Daily Amount: 1.5 mg aspirin 81 2-0 2022- No 81mg QD Take [address] [facility] MG EC 05-16 1025 tablet (81 [facility] tablet 00:00: 00:00 mg [...] doses. Max Daily Amount: 1.5 mg ALPRAZolam No .5mg Take [address] [facility] (XANAX) 0.5 05-14 tablet [facility] MG tablet 00:00: 00:00 (0.5 mg Medi yesy 00 :00 total) by Center mouth 3 (three) times daily as needed for Anxiety for up to 9 doses. Max Daily Amount: 1.5 mg metoprolol No 25mg Take 25 mg [facility] tartrate 25 11-30 by mouth. it y of mg tablet 11:13: 00:00 [place] 29 :00 [facility] Branch cyanocobala 2021- No 1{tbl} Take 1 U nivers min, 11-30 tablet by ity of vitamin 11:13: 00:00 mouth. [place] B-12, 05 :00 Medical (VITAMIN Branch B-12 ORAL) citalopram 2021- No 40mg Take 40 mg [facility] 40 mg 11-30-05 by mouth. ity of tablet 11:12: 00:00 [place] 58 :00 [facility] Branch MULTIVITAMI Yes Take by Uni vers N ORAL -05 mouth. ity of 10:10: [place] 39 [facility] MULTIVITAMI 2022-0 Yes Take by Uni vers N ORAL 4-05 mouth. ity of 10:10: [place] [address] Medical Branch MULTIVITAMI 2021-0 Yes Take by Uni vers N ORAL 4-05 mouth. ity of 10:10: [place] [address] Medical Branch MULTIVITAMI 2021-0 Yes Take by Uni vers N ORAL 4-05 mouth. ity of 10:10: [place] [address] Medical Branch tizanidine 2021-0 2022- No 4mg Take 4 mg U nivers HCl 4-05 04-05 by mouth. ity of (TIZANIDINE 10:10: 00:00 [place] ORAL) 14 :00 Medical Branch meloxicam 2021-0 Yes 15mg Take 15 mg Un alexi 15 mg 4-05 by mouth ity of tablet 10:06: daily. [place] [address] Medical Branch MIRTAZAPINE 2021-0 Yes 15mg Take 15 mg [facility] ORAL 4-05 by mouth. ity of 10:06: [place] [address] Medical Branch famotidine 2021-0 Yes 20mg Take 20 mg U nivers 20 mg 4-05 by mouth 2 ity of tablet 10:06: (two) [place] [address] times Medical daily. Branch atorvastati 2021-0 Yes 20mg Take 20 mg Univers n 20 mg 4-05 by mouth ity of tablet 10:06: at [place] [address] bedtime. Medical Branch meloxicam 2021-0 Yes 15mg Take 15 mg Un alexi 15 mg 4-05 by mouth ity of tablet 10:06: daily. [place] [address] Medical Branch MIRTAZAPINE 2021-0 Yes 15mg Take 15 mg Univers ORAL 4-05 by mouth. ity of 10:06: [place] [address] Medical Branch famotidine 2-0 Yes 20mg Take 20 mg U nivers 20 mg 4-05 by mouth 2 ity of tablet 10:06: (two) [place] [address] times Medical daily. Branch atorvastati 2-0 Yes 20mg Take 20 mg Univers n 20 mg 4-05 by mouth ity of tablet 10:06: at [place] [address] bedtime. Medical Branch meloxicam 2-0 Yes 15mg Take 15 mg Un alexi 15 mg 4-05 by mouth ity of tablet 10:06: daily. [place] [address] Medical Branch MIRTAZAPINE 2-0 Yes 15mg Take 15 mg Univers ORAL 4-05 by mouth. ity of 10:06: [place] [address] Medical Branch famotidine 0 Yes 20mg Take 20 mg U nivers 20 mg 4-05 by mouth 2 ity of tablet 10:06: (two) [place] [address] times Medical daily. Branch atorvastati 0 Yes 20mg Take 20 mg Univers n 20 mg 4-05 by mouth ity of tablet 10:06: at [place] [address] bedtime. Medical Branch meloxicam 2021-0 Yes 15mg Take 15 mg Un alexi 15 mg 4-05 by mouth ity of tablet 10:06: daily. [place] [address] Medical Branch famotidine 0 Yes 20mg Take 20 mg U nivers 20 mg 4-05 by mouth 2 ity of tablet 10:06: (two) [place] [address] times Medical daily. Branch losartan 50 0 Yes 50mg Take 50 mg Univers mg tablet 4-05 by mouth ity of 09:52: daily. [address] losartan 50 2021-0 Yes 50mg Take 50 mg Univers mg tablet 4-05 by mouth ity of 09:52: daily. [address] losartan 50 2021-0 Yes 50mg Take 50 mg Univers mg tablet 4-05 by mouth ity of 09:52: daily. [address] Branch estradioL 2021-0 Yes [id number] 1g Insert 1 g Univers 0.01 % (0.1 4-05 into ity of mg/gram) 00:00: vagina [place] vaginal 00 weekly. Medical [facility] Branch estradioL 2021-0 Yes [id number] 1g Insert 1 g Univers 0.01 % (0.1 4-05 into ity of mg/gram) 00:00: vagina [place] vaginal 00 weekly. Medical cream Branch estradioL 2021-0 Yes [id number] 1g Insert 1 g Univers 0.01 % (0.1 4-05 into ity of mg/gram) 00:00: vagina [place] vaginal 00 weekly. Medical cream Branch estradioL 2021-0 Yes [id number] 1g Insert 1 g Univers 0.01 % (0.1 4-05 into ity of mg/gram) 00:00: vagina [place] vaginal 00 weekly. Medical cream Branch estradioL 2021-0 Yes [id number] 1g Insert 1 g Univers 0.01 % (0.1 4-05 into ity of mg/gram) 00:00: vagina [place] vaginal 00 weekly. Medical cream Branch estradioL 2022-0 Yes [id number] 1g Insert 1 g Univers 0.01 % (0.1 4-05 into ity of mg/gram) 00:00: vagina [place] vaginal 00 weekly. Medical cream Branch estradioL 0 Yes [id number] 1g Insert 1 g Univers 0.01 % (0.1 4-05 into ity of mg/gram) 00:00: vagina [place] vaginal 00 weekly. Medical cream Branch tiZANidine 0 Yes Univers 4 mg tablet 4-04 ity of 00:00: [place] Medical Branch tiZANidine 2021-0 Yes Univers 4 mg tablet 4-04 ity of 00:00: [place] Medical Branch tiZANidine 2021-0 Yes Univers 4 mg tablet 4-04 ity of 00:00: [place] Medical Branch tiZANidine 2021-0 Yes Univers 4 mg tablet 4-04 ity of 00:00: [place] Medical Branch tiZANidine 2021-0 Yes Univers 4 mg tablet 4-04 ity of 00:00: [place] Medical Branch tiZANidine 2021-0 Yes Univers 4 mg tablet 4-04 ity of 00:00: [place] 00 Medical Branch tiZANidine 2021-0 Yes Univers 4 mg tablet 4-04 ity of 00:00: [place] 00 Medical Branch mirtazapine 2021-0 2021- No 15mg Take 15 mg Univers 15 mg -08 31-05 by mouth ity of tablet 00:00: 00:00 at [place] 00 :00 bedtime. Medical Branch eszopiclone 0 Yes 3mg Take 3 mg U nivers 3 mg tablet 3-28 by mouth ity of 00:00: at [place] [address] bedtime. Medical Branch eszopiclone 0 Yes 3mg Take 3 mg U nivers 3 mg tablet 3-28 by mouth ity of 00:00: at [place] [address] bedtime. Medical Branch eszopiclone 2021-0 Yes 3mg Take 3 mg U nivers 3 mg tablet 3-28 by mouth ity of 00:00: at [place] [address] bedtime. Medical Branch methocarbam 2021-0 Yes 500mg [...] 00 (two) Medical times Branch daily. HYDROcodone 2022-0 Yes 1{tbl} Take 1 Un alexi -acetaminop 3-10 tablet by ity of hen 5-325 00:00: mouth 3 [place] mg tablet 00 (three) Medical times Branch daily. methocarbam 2022-0 Yes 500mg Take 500 U nivers oL 500 mg 3-10 mg by ity of tablet 00:00: mouth 2 [place] 00 (two) Medical times Branch daily. HYDROcodone 2022-0 Yes 1{tbl} Take 1 Un alexi -acetaminop 3-10 tablet by ity of hen 5-325 00:00: mouth 3 [place] mg tablet 00 (three) Medical times Branch daily. methocarbam 2022-0 Yes 500mg Take 500 U nivers oL 500 mg 3-10 mg by ity of tablet 00:00: mouth 2 [place] (two) Medical times Branch daily. methocarbam 2022-0 Yes 500mg Take 1 Uni vers oL 500 mg 3-10 tablet by ity o f tablet 00:00: mouth in [place] 00 the Medical morning Branch and 1 tablet in the evening. methocarbam 2022-0 Yes 500mg Take 1 Uni vers oL 500 mg 3-10 tablet by ity o f tablet 00:00: mouth in [place] 00 the Medical morning Branch and 1 tablet in the evening. methocarbam 2022-0 Yes 500mg Take 1 Uni vers oL 500 mg 3-10 tablet by ity o f tablet 00:00: mouth in [place] 00 the Medical morning Branch and 1 [...] :00 (two) Center tablet times daily. meloxicam 2-0 Yes TAKE 1 Univer s 7.5 mg 1-26 TABLET BY ity of tablet 00:00: MOUTH [place] 00 EVERY DAY Medical FOR 14 Branch DAYS meloxicam 2022-0 Yes TAKE 1 Univer s 7.5 mg 1-26 TABLET BY ity of tablet 00:00: MOUTH [place] 00 EVERY DAY Medical FOR 14 Branch DAYS meloxicam 2-0 Yes TAKE 1 Univer s 7.5 mg 1-26 TABLET BY ity of tablet 00:00: MOUTH [place] 00 EVERY DAY Medical FOR 14 Branch [...] and 1 tablet in the evening. buPROPion 2021-0 Yes 150mg Take 1 Unive [...] and 1 tablet in the evening. oxybutynin 2019- Yes [id number] 10mg Take 1 Univers 10 mg 24 hr 1-05 tablet by ity of tablet 00:00: mouth [place] 00 daily. [facility] Branch oxybutynin 2019-08 Yes [id number] 10mg Take 1 Univers 10 mg 24 hr 1-05 tablet by ity of tablet 00:00: mouth [place] 00 daily. [facility] Branch oxybutynin 2019-08 Yes 10mg Take 1 Univers 10 mg 24 hr 1-05 tablet by ity of tablet 00:00: mouth [place] 00 daily. [facility] Branch oxybutynin 2019-08 Yes [id number] 10mg Take 1 Univers 10 mg 24 hr 1-05 tablet by ity of tablet 00:00: mouth [place] 00 daily. [facility] oxybutynin 2019-08 Yes [id number] 10mg Take 1 Univers 10 mg 24 hr 1-05 tablet by ity of tablet 00:00: mouth [place] 00 daily. [facility] oxybutynin 2019-08 Yes [id number] 10mg Take 1 Univers 10 mg 24 hr 1-05 tablet by ity of tablet 00:00: mouth [place] 00 daily. [facility] oxybutynin 2019-08 Yes [id number] 10mg Take 1 Univers 10 mg 24 hr 1-05 tablet by ity of tablet 00:00: mouth [place] 00 daily. [facility] methylPREDN 2019-08- No [id number] Take by Univers ISolone 1-05 04-05 mouth ity of (MEDROL, 00:00: 00:00 [place]NY[place] 4 mg 00 :00 CTIONS. Medica l tablets follow Branch package directions naproxen 2019-08- No [id number] 550mg Take 1 Univers sodium 1-05 04-05 [...] Indication s: acute pain cyclobenzap 2018-08- No [id number] 5mg Take 1 Univers rine 5 mg [...] H arris rine 4-15 left-sided tablet by [facility] (FLEXERIL) 00:00: low back mouth 2 [...] H arris rine 4-15 left-sided tablet by [facility] (FLEXERIL) 00:00: low back mouth 2 [...] H arris rine 4-15 left-sided tablet by [facility] (FLEXERIL) 00:00: low back mouth 2 [...] H arris rine 4-15 left-sided tablet by [facility] (FLEXERIL) 00:00: low back mouth 2 [...] H arris rine 4-15 left-sided tablet by [facility] (FLEXERIL) 00:00: low back mouth 2 [...] H arris rine 4-15 left-sided tablet by [facility] (FLEXERIL) 00:00: low back mouth 2 [...] H arris rine 4-15 left-sided tablet by [facility] (FLEXERIL) 00:00: low back mouth 2 [...] H arris rine 4-15 left-sided tablet by [facility] (FLEXERIL) 00:00: low back mouth 2 10 mg 00 pain with times tablet sciatica, daily as sciatica needed for laterality Muscle unspecified Spasms. gabapentin Yes Chronic 300mg Take 1 H arris (NEURONTIN) 4-15 left-sided capsule by [facility] 300 mg 00:00: low back mouth 2 capsule 00 pain with times sciatica, daily as sciatica needed for laterality Pain. unspecified cyclobenzap 2019 Yes Chronic 10mg Take 1 H arris rine 4-15 left-sided tablet by [facility] (FLEXERIL) 00:00: low back mouth 2 [...] H arris rine 4-15 left-sided tablet by [facility] (FLEXERIL) 00:00: low back mouth 2 10 mg 00 pain with times tablet sciatica, daily as sciatica needed for laterality Muscle unspecified Spasms. gabapentin Yes Chronic 300mg Take 1 H arris (NEURONTIN) 4-15 left-sided capsule by [facility] 300 mg 00:00: low back mouth 2 capsule 00 pain with times sciatica, daily as sciatica needed for laterality Pain. unspecified cyclobenzap Yes Chronic 10mg Take 1 H arris rine 4-15 left-sided tablet by [facility] (FLEXERIL) 00:00: low back mouth 2 10 mg 00 pain with times tablet sciatica, daily as sciatica needed for laterality Muscle unspecified Spasms. gabapentin Yes Chronic 300mg Take 1 H arris (NEURONTIN) 4-15 left-sided capsule by [facility] 300 mg 00:00: low back mouth 2 capsule 00 pain with times sciatica, daily as sciatica needed for laterality Pain. unspecified cyclobenzap Yes Chronic 10mg Take 1 H arris rine 4-15 left-sided tablet by [facility] (FLEXERIL) 00:00: low back mouth 2 10 mg 00 pain with times tablet sciatica, daily as sciatica needed for laterality Muscle unspecified Spasms. gabapentin Yes Chronic 300mg Take 1 H arris (NEURONTIN) 4-15 left-sided capsule by [facility] 300 mg 00:00: low back mouth 2 capsule 00 pain with times sciatica, daily as sciatica needed for laterality Pain. unspecified cyclobenzap 2019-0 Yes Chronic 10mg Take 1 H arris rine 4-15 left-sided tablet by [facility] (FLEXERIL) 00:00: low back mouth 2 10 mg 00 pain with times tablet sciatica, daily as sciatica needed for laterality Muscle unspecified Spasms. naproxen 2018-0 Yes 440mg Q24H Take 440 Meth [place]oyd sodium 6-[address] (ALEVE) 220 18:26: mouth Hospi ta MG tablet 50 daily as l needed for mild pain. citalopram 2018-0 Yes 40mg QD Take 40 mg M ethodi (CeleXA) 40 6-[address] MG tablet 18:26: nightly. Hosp tasha 50 l metoprolol 2018-0 Yes 25mg Q.[id number] Take 25 mg [facility]i tartrate 6-[id number] mouth [address] [facility] (LOPRESSOR) 18:26: 3D [...] tasha 50 l metoprolol 2018-0 Yes 25mg Q.[id number] Take 25 mg Methodi tartrate 6-19 [id number] mouth [address] [facility] (LOPRESSOR) 18:26: 3D [...] tasha 50 l metoprolol 2018-0 Yes 25mg Q.[id number] Take 25 mg Methodi tartrate 6-[id number] [facility] [address] [facility] (LOPRESSOR) 18:26: 3D [...] tasha 50 l metoprolol 2018-0 Yes 25mg Q.[id number] Take 25 mg Methodi tartrate 6-19 [id number] mouth [address] [facility] (LOPRESSOR) 18:26: 3D [...] tasha 50 l metoprolol 2018-0 Yes 25mg Q.[id number] Take 25 mg Methodi tartrate 6-19 [id number] mouth [address] [facility] (LOPRESSOR) 18:26: 3D [...] tasha 50 l metoprolol 2018-0 Yes 25mg Q.[id number] Take 25 mg Methodi tartrate 6-19 [id number] mouth [address] [facility] (LOPRESSOR) 18:26: 3D [...] tasha 50 l metoprolol 2018-0 Yes 25mg Q.[id number] Take 25 mg Methodi tartrate 6-19 [id number] mouth [address] [facility] (LOPRESSOR) 18:26: 3D [...] tasha 50 l metoprolol 2018-0 Yes 25mg Q.[id number] Take 25 mg Methodi tartrate 6-[id number] mouth [address] [facility] (LOPRESSOR) 18:26: 3D [...] tasha 50 l metoprolol 2018-0 Yes 25mg Q.[id number] Take 25 mg Methodi tartrate 6-[id number] [facility] [address] [facility] (LOPRESSOR) 18:26: 3D [...] Take 40 mg M ethodi (CeleXA) 40 02-[address] MG tablet 18:26: nightly. Hosp tasha 50 l metoprolol Yes 25mg Q.[id number] Take 25 mg Methodi tartrate 02-13 [id number] mouth [address] [facility] (LOPRESSOR) 18:26: 3D (three) Hos viral 25 mg 50 times a l tablet day. Note: Rx label states BID but pt takes TID. cyanocobala Yes 1{tbl} QD Take 1 Me thodi min, [address] vitamin 18:26: mouth Hospita [...] Memoria 9-23 (Same as: l 14:26: Ativan) [place] 00 Ativan No Notes: Memoria 9-23 (Same [...] 05-20 not exceed l 13:34: 4 gm/day. [place] 00 (Same as: Tylenol) Acetaminoph No Notes: Do M emoria en 05-20 not exceed l 13:34: 4 gm/day. [place] 00 (Same as: Tylenol) Acetaminoph No Notes: Do M emoria en 05-20 not exceed l 13:34: 4 gm/day. [place] 00 (Same as: Tylenol) Acetaminoph No Notes: Do M emoria en 05-20 not exceed l 13:34: 4 gm/day. [place] 00 (Same as: Tylenol) Acetaminoph No Notes: [...] tab, PO, l tablet 12:18: Daily, 0 [place] 00 Refill(s) Klor-Con 10 Yes 10 mEq, Mem oria 9-23 PO, Daily, l 12:18: 0 [place] 00 Refill(s) rOPINIRole Yes 1 mg = [...] tab, PO, l tablet 12:18: Daily, 0 [place] 00 Refill(s) Klor-Con 10 Yes 10 mEq, Mem oria 9-23 PO, Daily, l 12:18: 0 [place] 00 Refill(s) rOPINIRole Yes 1 mg = 1 Mem oria 1 mg oral 9-23 tab, PO, l tablet 12:18: Daily, 0 [place] 00 Refill(s) Klor-Con 10 Yes 10 mEq, Mem oria 9-23 PO, Daily, l 12:18: 0 [place] 00 Refill(s) rOPINIRole Yes 1 mg = 1 Mem oria 1 mg oral 9-23 tab, PO, l tablet 12:18: Daily, 0 [place] 00 Refill(s) Klor-Con 10 Yes 10 mEq, Mem oria 9-23 PO, Daily, l 12:18: 0 [place] 00 Refill(s) rOPINIRole Yes 1 mg = 1 Mem oria 1 mg oral 9-23 tab, PO, l tablet 12:18: Daily, 0 [place] 00 Refill(s) Klor-Con 10 Yes 10 mEq, [...] tab, PO, l tablet 12:18: Daily, 0 [place] 00 Refill(s) Klor-Con 10 2014-0 Yes 10 mEq, Mem oria 9-23 PO, Daily, l 12:18: 0 [place] 00 Refill(s) rOPINIRole Yes 1 mg = 1 Mem oria 1 mg oral 9-23 tab, PO, l tablet 12:18: Daily, 0 [place] 00 Refill(s) Klor-Con 10 Yes 10 mEq, Mem oria 9-23 PO, Daily, l 12:18: 0 [place] 00 Refill(s) rOPINIRole Yes 1 mg = [...] tab, PO, l tablet 12:18: Daily, 0 [place] 00 Refill(s) Klor-Con 10 Yes 10 mEq, Mem oria 9-23 PO, Daily, l 12:18: 0 [place] 00 Refill(s) rOPINIRole Yes 1 mg = 1 Mem oria 1 mg oral 9-23 tab, PO, l tablet 12:18: Daily, 0 [place] 00 Refill(s) Klor-Con 10 Yes 10 mEq, Mem oria 9-23 PO, Daily, l 12:18: 0 [place] 00 Refill(s) rOPINIRole Yes 1 mg = 1 Mem oria 1 mg oral 9-23 tab, PO, l tablet 12:18: Daily, 0 [place] 00 Refill(s) Klor-Con 10 Yes 10 mEq, Mem oria 9-23 PO, Daily, l 12:18: 0 [place] 00 Refill(s) rOPINIRole Yes 1 mg = 1 Mem oria 1 mg oral 9-23 tab, PO, l tablet 12:18: Daily, 0 [place] 00 Refill(s) Klor-Con 10 Yes 10 mEq, Mem oria 9-23 PO, Daily, l 12:18: 0 [place] 00 Refill(s) rOPINIRole Yes 1 mg = 1 Mem oria 1 mg oral 9-23 tab, PO, l tablet 12:18: Daily, 0 [place] 00 Refill(s) Klor-Con 10 Yes 10 mEq, Mem oria 9-23 PO, Daily, l 12:18: 0 [place] 00 Refill(s) rOPINIRole Yes 1 mg = 1 Mem oria 1 mg oral 9-23 tab, PO, l tablet 12:18: Daily, 0 [place] 00 Refill(s) Klor-Con 10 Yes 10 mEq, Mem oria 9-23 PO, Daily, l 12:18: 0 Kamas 00 Refill(s) rOPINIRole Yes 1 mg = 1 Mem oria 1 mg oral 9-23 tab, PO, l tablet 12:18: Daily, 0 Kamas 00 Refill(s) Klor-Con 10 Yes 10 mEq, Mem oria 9-23 PO, Daily, l 12:18: 0 [place] 00 Refill(s) rOPINIRole Yes 1 mg = 1 Mem oria 1 mg oral 9-23 tab, PO, l tablet 12:18: Daily, 0 [place] 00 Refill(s) Klor-Con 10 Yes 10 mEq, Mem oria 9-23 PO, Daily, l 12:18: 0 Kamas 00 Refill(s) Hydrochloro Yes 1 tab, PO, [...] Mau agata 9-22 Daily l 14:48: [place] aspirin 2013- Yes 81 mg, PO, Mau agata 9-22 Daily l 14:48: Kamas aspirin 2014-0 Yes 81 mg, PO, Mau [...] Yes PO, Memoria 05-19 Bedtime l 14:47: Kamas 00 aripiprazol Yes 15 mg = 1 M emoria e 15 MG -22 tab, PO, l Oral Tablet 14:47: Daily Alice nn [Abilify] Clonidine Yes PO, Memoria 05-19 Bedtime l 14:47: Kamas 00 aripiprazol Yes 15 mg = 1 M emoria e 15 MG -22 tab, PO, l Oral Tablet 14:47: Daily Alice nn [Abilify] Clonidine Yes PO, Memoria 05-19 Bedtime l 14:47: Kamas 00 aripiprazol Yes 15 mg = 1 [...] Yes PO, Memoria 05-19 Bedtime l 14:47: Kamas 00 aripiprazol Yes 15 mg = 1 [...] Memor ia 05-19 PO, BID l 14:46: Ibuprofen 2014-0 Yes [...] Ibuprofen 2014-0 Yes 800 mg, Memor ia 9- PO, BID l 14:46: Kamas 00 Miralax No Notes: Memoria 5-09 Dissolve l 14:00: in 8 oz of Kamas 00 water or juice. (Same as: Miralax) Miralax No Notes: Memoria 5-09 Dissolve l 14:00: in 8 oz of [place] 00 water or juice. (Same as: Miralax) Miralax No Notes: Memoria 5-09 Dissolve l 14:00: in 8 oz of Kamas 00 water or juice. (Same as: Miralax) Miralax No Notes: Memoria 5-09 Dissolve l 14:00: in 8 oz of Kamas 00 water or juice. (Same as: Miralax) Miralax No Notes: Memoria 5-09 Dissolve l 14:00: in 8 oz of Kamas 00 water or juice. (Same as: Miralax) Miralax No Notes: Memoria 5-09 Dissolve l 14:00: in 8 oz of [place] 00 water or juice. (Same as: Miralax) Miralax No Notes: Memoria 5-09 Dissolve l 14:00: in 8 oz of Kamas 00 water or juice. (Same as: Miralax) Miralax No Notes: Memoria 5-09 Dissolve l 14:00: in 8 oz of Kamas 00 water or juice. (Same as: Miralax) [...] Dissolve l 14:00: in 8 oz of Kamas 00 water or juice. (Same as: Miralax) [...] Dissolve l 14:00: in 8 oz of Kamas 00 water or juice. (Same as: Miralax) Miralax No Notes: Memoria 5-09 Dissolve l 14:00: in 8 oz of Kamas 00 water or juice. (Same as: Miralax) [...] Laxative 5-08 (Same As: l 15:24: Dulcolax, Kamas 00 Bisco-Lax) Dulcolax No Notes: Memoria Laxative 5-08 (Same As: l 15:24: Dulcolax, [place] 00 Bisco-Lax) Dulcolax 0 No Notes: [facility]oria Laxative 5-08 (Same As: l 15:24: Dulcolax, [place] 00 Bisco-Lax) Dulcolax 0 No Notes: [facility] Laxative 5-08 (Same As: l 15:24: Dulcolax, Kamas 00 Bisco-Lax) Dulcolax No Notes: [facility] Laxative 5-08 (Same As: l 15:24: Dulcolax, Kamas 00 Bisco-Lax) Dulcolax No Notes: [facility] Laxative 5-08 (Same As: l 15:24: Dulcolax, [place] 00 Bisco-Lax) Dulcolax No Notes: [facility] Laxative 5-08 (Same As: l 15:24: Dulcolax, Kamas 00 Bisco-Lax) Dulcolax No Notes: [facility] Laxative 5-08 (Same As: l 15:24: Dulcolax, [place] 00 Bisco-Lax) Dulcolax No Notes: [facility] Laxative 5-08 (Same As: l 15:24: Dulcolax, Kamas 00 Bisco-Lax) Dulcolax No Notes: [facility] Laxative 5-08 (Same As: l 15:24: Dulcolax, [place] 00 Bisco-Lax) Dulcolax No Notes: [facility] Laxative 5-08 (Same As: l 15:24: Dulcolax, [place] 00 Bisco-Lax) Dulcolax No Notes: [facility] Laxative 5-08 (Same As: l 15:24: Dulcolax, [place] 00 Bisco-Lax) Dulcolax No Notes: [facility] Laxative 5-08 (Same As: l 15:24: Dulcolax, Kamas 00 Bisco-Lax) Dulcolax 0 No Notes: [facility] Laxative 5-08 (Same As: l 15:24: Dulcolax, [place] 00 Bisco-Lax) Dulcolax No Notes: [facility] Laxative 5-08 (Same As: l 15:24: Dulcolax, [place] 00 Bisco-Lax) Dulcolax No Notes: [facility] Laxative 5-08 (Same As: l 15:24: Dulcolax, Kamas 00 Bisco-Lax) Dulcolax No Notes: [facility] Laxative 5-08 (Same As: l 15:24: Dulcolax, [place] 00 Bisco-Lax) Dulcolax No Notes: [facility] Laxative 5-08 (Same As: l 15:24: Dulcolax, [place] 00 Bisco-Lax) Dulcolax No Notes: [facility] Laxative 5-08 (Same As: l 15:24: Dulcolax, [place] 00 Bisco-Lax) Dulcolax No Notes: [facility] Laxative 5-08 (Same As: l 15:24: Dulcolax, Kamas 00 Bisco-Lax) Dulcolax No Notes: [facility] Laxative 5-08 (Same As: l 15:24: Dulcolax, Kamas 00 Bisco-Lax) Sertraline No Notes: Memor ia [...] 5-07 Route: PO, l 14:00: Drug form: Kamas 00 ERCAP, Daily, Dosing Weight 71.818, kg, Start date: 01/01/14 9:00:00, Duration: 30 day, Stop date: 01/30/14 9:00:00 Budesonide No Notes: Memor ia 5-07 (Same As: l 14:00: Entocort Kamas 00 EC or Budesonide 3 mg EC / ERC) "Do Not Crush" Sertraline No Notes: Memor ia 5-07 (Same as: l 14:00: Zoloft) Kam[place] 00 Methocarbam No Notes: Mau agata ol 5-07 (Same l 14:00: as:Robaxin ) aripiprazol No Notes: Mau agata e 5-07 Non-Formul l 14:00: elva Drug. [place] 00 (Same as: ) Entocort EC No 9 mg, Memor ia 5-07 Route: PO, l 14:00: Drug form: Kamas 00 ERCAP, Daily, Dosing Weight 71.818, kg, Start date: 01/01/14 9:00:00, Duration: 30 day, Stop date: 01/30/14 9:00:00 Budesonide No Notes: Memor ia 5-07 (Same As: l 14:00: Entocort Kam[place] 00 EC or Budesonide 3 mg EC [...] 5-07 Route: PO, l 14:00: Drug form: Kamas 00 ERCAP, Daily, Dosing Weight 71.818, kg, Start date: 01/01/14 9:00:00, Duration: 30 day, Stop date: 01/30/14 9:00:00 Budesonide No Notes: Memor ia 5-07 (Same As: l 14:00: Entocort Kamas EC or Budesonide 3 mg EC / ERC) "Do Not Crush" Sertraline No Notes: Memor ia 5-07 (Same as: l 14:00: Zoloft) [place] 00 Methocarbam No Notes: Mau agata ol 5-07 (Same l 14:00: as:Robaxin ) aripiprazol No Notes: Mau agata e 5-07 Non-Formul l 14:00: elva Drug. Kamas 00 (Same as: ) Entocort EC No 9 mg, Memor ia 5-07 Route: PO, l 14:00: Drug form: Kamas 00 ERCAP, Daily, Dosing Weight 71.818, kg, Start date: 01/01/14 9:00:00, Duration: 30 day, Stop date: 01/30/14 9:00:00 Budesonide No Notes: Memor ia 5-07 (Same As: l 14:00: Entocort Kamas EC or Budesonide 3 mg EC / ERC) "Do Not Crush" Sertraline No Notes: Memor ia 5-07 (Same as: l 14:00: Zoloft) Kamas 00 Methocarbam No Notes: Mau agata ol [...] ia 5-07 (Same As: l 14:00: Entocort Kam[place] 00 EC or Budesonide 3 mg EC / ERC) "Do Not Crush" Sertraline No Notes: Memor ia 5-07 (Same as: l 14:00: Zoloft) Kam[place] 00 Methocarbam No Notes: Mau agata ol [...] ia 5-07 (Same As: l 14:00: Entocort Kam[place] 00 EC or Budesonide 3 mg EC / ERC) "Do Not Crush" Sertraline No Notes: Memor ia 5-07 (Same as: l 14:00: Zoloft) [place] 00 Methocarbam No Notes: Mau agata ol 5-07 (Same l 14:00: as:Robaxin ) aripiprazol No Notes: Mau agata e 5-07 Non-Formul l 14:00: elva Drug. [place] 00 (Same as: Juvenal) Entocort EC No 9 mg, Memor ia 5-07 Route: PO, l 14:00: Drug form: Kamas 00 ERCAP, Daily, Dosing Weight 71.818, kg, Start date: 01/01/14 9:00:00, Duration: 30 day, Stop date: 01/30/14 9:00:00 Budesonide No Notes: Memor ia 5-07 (Same As: l 14:00: Entocort [place] 00 EC or Budesonide 3 mg EC / ERC) "Do Not Crush" Sertraline No Notes: Memor ia 5-07 (Same as: l 14:00: Zoloft) Kamas Methocarbam No Notes: Mau agata ol 5-07 [...] ia 5-07 (Same As: l 14:00: Entocort Kam[place] 00 EC or Budesonide 3 mg EC / ERC) "Do Not Crush" Sertraline No Notes: Memor ia 5-07 (Same as: l 14:00: Zoloft) [place] Methocarbam No Notes: Mau agata ol 5-07 (Same l 14:00: as:Robaxin Kamas 00 ) aripiprazol No Notes: Mau agata e 5-07 Non-Formul l 14:00: [facility]va Drug. [place] 00 (Same as: ) Entocort EC No 9 mg, Memor ia 5-07 Route: PO, l 14:00: Drug form: [place] 00 ERCAP, Daily, Dosing Weight 71.818, kg, Start date: 01/01/14 9:00:00, Duration: 30 day, Stop date: 01/30/14 9:00:00 Budesonide 2014-0 No Notes: Memor ia 5-07 (Same As: l 14:00: Entocort [place] 00 EC or Budesonide 3 mg EC / ERC) "Do Not Crush" Sertraline No Notes: Memor ia 5-07 (Same as: l 14:00: Zoloft) [place] 00 Methocarbam No Notes: Mau agata ol 5-07 (Same l 14:00: as:Robaxin Kamas 00 ) aripiprazol No Notes: Mau agata [...] ia 5-07 (Same as: l 14:00: Zoloft) Kamas Methocarbam No Notes: Mau agata ol 5-07 (Same l 14:00: as:Robaxin Kamas 00 ) aripiprazol No Notes: Mau agata e 5-07 Non-Formul l 14:00: elva Drug. Kamas (Same as: ) Entocort EC No 9 mg, Memor ia 5-07 Route: PO, l 14:00: Drug form: Kamas 00 ERCAP, Daily, Dosing Weight 71.818, kg, [...] ia 5-07 (Same As: l 14:00: Entocort Kam[place] 00 EC or Budesonide 3 mg EC / ERC) "Do Not Crush" Sertraline No Notes: Memor ia 5-07 (Same as: l 14:00: Zoloft) Kam[place] 00 Methocarbam No Notes: Mau agata ol [...] ia 5-07 (Same As: l 14:00: Entocort Kam[place] 00 EC or Budesonide 3 mg EC / ERC) "Do Not Crush" Sertraline No Notes: Memor ia 5-07 (Same as: l 14:00: Zoloft) [place] Methocarbam No Notes: Mau agata ol 5-07 (Same l 14:00: as:Robaxin ) aripiprazol No Notes: Mau agata e 5-07 Non-Formul l 14:00: elva Drug. Kamas 00 (Same as: ) Entocort EC No 9 mg, Memor ia 5-07 Route: PO, l 14:00: Drug form: Kamas 00 ERCAP, Daily, Dosing Weight 71.818, kg, [...] 5-07 Route: PO, l 14:00: Drug form: Kamas 00 ERCAP, Daily, Dosing Weight 71.818, kg, Start date: 01/01/14 9:00:00, Duration: 30 day, Stop date: 01/30/14 9:00:00 Budesonide No Notes: Memor ia 5-07 (Same As: l 14:00: Entocort [place] 00 EC or Budesonide 3 mg EC / ERC) "Do Not Crush" Sertraline No Notes: Memor ia 5-07 (Same as: l 14:00: Zoloft) [place] 00 Methocarbam No Notes: Mau agata ol 5-07 (Same l 14:00: as:Robaxin [place] ) aripiprazol No Notes: Mau agata e 5-07 Non-Formul l 14:00: elva Drug. Kamas 00 (Same as: ) Entocort EC No 9 mg, Memor ia 5-07 Route: PO, l 14:00: Drug form: Kamas 00 ERCAP, Daily, Dosing Weight 71.818, kg, Start date: 01/01/14 9:00:00, Duration: 30 day, Stop date: 01/30/14 9:00:00 Budesonide 0 No Notes: Memor ia 5-07 (Same As: l 14:00: Entocort [place] 00 EC or Budesonide 3 mg EC / ERC) "Do Not Crush" Sertraline No Notes: Memor ia 5-07 (Same as: l 14:00: Zoloft) [place] 00 Methocarbam No Notes: Mau agata ol 5-07 (Same l 14:00: as:Robaxin ) aripiprazol No Notes: Mau agata e 5-07 Non-Formul l 14:00: elva Drug. Kamas 00 (Same as: ) Entocort EC No 9 mg, Memor ia 5-07 Route: PO, l 14:00: Drug form: Kamas 00 ERCAP, Daily, Dosing Weight 71.818, kg, [...] 5-07 Route: PO, l 14:00: Drug form: Kamas 00 ERCAP, Daily, Dosing Weight 71.818, kg, Start date: 01/01/14 9:00:00, Duration: 30 day, Stop date: 01/30/14 9:00:00 Budesonide No Notes: Memor ia 5-07 (Same As: l 14:00: Entocort [place] 00 EC or Budesonide 3 mg EC / ERC) "Do Not Crush" Sertraline No Notes: Memor ia 5-07 (Same as: l 14:00: Zoloft) Kamas Methocarbam No Notes: Mau agata ol 5-07 (Same l 14:00: as:Robaxin [place] 00 ) aripiprazol No Notes: Mau agata e 5-07 Non-Formul l 14:00: [facility]va Drug. (Same as: Juvenal) Entocort EC No 9 mg, Memor ia 5-07 Route: PO, l 14:00: Drug form: Kamas 00 ERCAP, Daily, Dosing Weight 71.818, kg, Start date: 01/01/14 9:00:00, Duration: 30 day, Stop date: 01/30/14 9:00:00 Budesonide No Notes: Memor ia 5-07 (Same As: l 14:00: Entocort [place] 00 EC or Budesonide 3 mg EC / ERC) "Do Not Crush" Sertraline No Notes: Memor ia 5-07 (Same as: l 14:00: Zoloft) [place] Methocarbam No Notes: Mau agata ol 5-07 (Same l 14:00: as:Robaxin ) aripiprazol No Notes: Mau agata e 5-07 Non-Formul l 14:00: elva Drug. Kamas 00 (Same as: ) Entocort EC No 9 mg, Memor ia 5-07 Route: PO, l 14:00: Drug form: [place] 00 ERCAP, Daily, Dosing Weight 71.818, kg, Start date: 01/01/14 9:00:00, Duration: 30 day, Stop date: 01/30/14 9:00:00 Budesonide No Notes: Memor ia 5-07 (Same As: l 14:00: Entocort Kam[place] 00 EC or Budesonide 3 mg EC [...] ia 5-07 (Same As: l 14:00: Entocort Kam[place] 00 EC or Budesonide 3 mg EC / ERC) "Do Not Crush" Protonix No Notes: Memoria 5-07 Tablet l 12:30: should not Kamas 00 be chewed or crushed. (Same as: Protonix) Protonix No Notes: Memoria 5-07 Tablet l 12:30: should not Kamas 00 be chewed or crushed. (Same as: Protonix) Protonix No Notes: Memoria 5-07 Tablet l 12:30: should not [place] 00 be chewed or crushed. (Same as: Protonix) Protonix No Notes: Memoria 5-07 Tablet l 12:30: should not Kamas 00 be chewed or crushed. (Same as: Protonix) Protonix No Notes: Memoria 5-07 Tablet l 12:30: should not [place] 00 be chewed or crushed. (Same as: Protonix) Protonix No Notes: Memoria 5-07 Tablet l 12:30: should not [place] 00 be chewed or crushed. (Same as: Protonix) Protonix No Notes: Memoria 5-07 Tablet l 12:30: should not [place] 00 be chewed or crushed. (Same as: Protonix) Protonix No Notes: Memoria 5-07 Tablet l 12:30: should not Kam[place] 00 be chewed or crushed. (Same as: Protonix) Protonix No Notes: Memoria 5-07 Tablet l 12:30: should not Kamas 00 be chewed or crushed. (Same as: Protonix) Protonix No Notes: Memoria 5-07 Tablet l 12:30: should not Kam[place] 00 be chewed or crushed. (Same as: Protonix) Protonix No Notes: Memoria 5-07 Tablet l 12:30: should not Kamas 00 be chewed or crushed. (Same as: Protonix) Protonix No Notes: Memoria 5-07 Tablet l 12:30: should not [place] 00 be chewed or crushed. (Same as: Protonix) Protonix No Notes: Memoria 5-07 Tablet l 12:30: should not [place] 00 be chewed or crushed. (Same as: [...] chewed or crushed. (Same as: Protonix) Protonix 0 No Notes: Memoria 5-07 Tablet l 12:30: should not [place] 00 be chewed or crushed. (Same as: Protonix) Protonix No Notes: Memoria 5-07 Tablet l 12:30: should not Kam[place] 00 be chewed or crushed. (Same as: Protonix) Protonix No Notes: Memoria 5-07 Tablet l 12:30: should not Kamas 00 be chewed or crushed. (Same as: [...] agata 5-07 (Same as: l 04:30: Bentyl) Kamas Dicyclomine No Notes: Mau agata 5-07 (Same as: l 04:30: Bentyl) Kamas Dicyclomine No Notes: Mau agata 5-07 (Same as: l 04:30: Bentyl) Kamas Dicyclomine No Notes: Mau agata 5-07 (Same as: l 04:30: Bentyl) [place] Dicyclomine No Notes: Mau agata 5-07 (Same as: l 04:30: Bentyl) [place] Dicyclomine No Notes: Mau agata 5-07 (Same as: l 04:30: Bentyl) [place] Dicyclomine No Notes: Mau agata 5-07 (Same as: l 04:30: Bentyl) [place] Dicyclomine No Notes: Mau agata 5-07 (Same as: l 04:30: Bentyl) [place] Dicyclomine No Notes: Mau agata 5-07 (Same as: l 04:30: Bentyl) [place]as Dicyclomine No Notes: Mau agata 5-07 (Same as: l 04:30: Bentyl) [place] Dicyclomine No Notes: Mau agata 5-07 (Same as: l 04:30: Bentyl) [place] Dicyclomine No Notes: Mau agata 5-07 (Same as: l 04:30: Bentyl) Kam[place] Dicyclomine No Notes: Mau agata 5-07 (Same as: l 04:30: Bentyl) [facility] Dicyclomine No Notes: Mau agata 5-07 (Same as: l 04:30: Bentyl) [facility] Dicyclomine No Notes: Mau agata 5-07 (Same as: l 04:30: Bentyl) Kam[place] Dicyclomine No Notes: Mau agata 5-07 (Same as: l 04:30: Bentyl) [facility] Dicyclomine No Notes: Mau agata 5-07 (Same as: l 04:30: Bentyl) [place] Dicyclomine No Notes: Mau agata 5-07 (Same as: l 04:30: Bentyl) [place] Dicyclomine No Notes: Mau agata 5-07 (Same as: l 04:30: Bentyl) Kamas 00 Dicyclomine No Notes: Mau agata 5-07 (Same as: l 04:30: Bentyl) Kam[place] 00 Dicyclomine No Notes: Mau agata 5-07 [...] Notes: Memoria 5-07 (Same l 02:00: as:Pamelor Kamas 00 , Aventyl) metoprolol No Notes: Memor ia tartrate 5-07 (Same as: l 02:00: Lopressor) Trazodone No Notes: Memori a Hydrochlori 5-07 (Same As: l de 100 MG 02:00: Desyrel) Herm booker Oral Tablet 00 Zocor No Notes: Memoria 5-07 (Same as: l 02:00: Zocor) [place] Ditropan XL No Notes: Mau agata 5-07 (Same as: l 02:00: Ditropan Kamas 00 XL) "Do Not Crush" Pamelor No Notes: Memoria 5-07 (Same l 02:00: as:Pamelor [place] 00 , Aventyl) metoprolol No Notes: Memor ia tartrate 5-07 (Same as: l 02:00: Lopressor) [place] Trazodone No Notes: Memori a Hydrochlori 5-07 (Same As: l de 100 MG 02:00: Desyrel) Herm booker Oral Tablet 00 Zocor No Notes: Memoria 5-07 (Same as: l 02:00: Zocor) Kamas Ditropan XL No Notes: Mau agata 5-07 (Same as: l 02:00: Ditropan [place] 00 XL) "Do Not Crush" Pamelor No Notes: Memoria 5-07 (Same l 02:00: as:Pamelor [place] 00 , Aventyl) metoprolol No Notes: Memor ia tartrate 5-07 (Same as: l 02:00: Lopressor) Kamas Trazodone No Notes: Memori a Hydrochlori 5-07 (Same As: l de 100 MG 02:00: Desyrel) Herm booker Oral Tablet 00 Zocor No Notes: Memoria 5-07 (Same as: l 02:00: Zocor) Kam[place] Ditropan XL No Notes: Mau agata 5-07 (Same as: l 02:00: Ditropan Kamas 00 XL) "Do Not Crush" Pamelor No Notes: Memoria 5-07 (Same l 02:00: as:Pamelor Kamas 00 , Aventyl) metoprolol No Notes: Memor ia tartrate 5-07 (Same as: l 02:00: Lopressor) Kamas Trazodone No Notes: Memori a Hydrochlori 5-07 (Same As: l de 100 MG 02:00: Desyrel) Herm booker Oral Tablet 00 Zocor No Notes: Memoria 5-07 (Same as: l 02:00: Zocor) [place] Ditropan XL No Notes: Mau agata 5-07 (Same as: l 02:00: Ditropan Kamas 00 XL) "Do Not Crush" Pamelor No Notes: Memoria 5-07 (Same l 02:00: as:Pamelor Kamas 00 , Aventyl) metoprolol No Notes: Memor ia tartrate 5-07 (Same as: l 02:00: Lopressor) Kamas Trazodone No Notes: Memori a Hydrochlori 5-07 (Same As: l de 100 MG 02:00: Desyrel) Herm booker Oral Tablet 00 Zocor No Notes: Memoria 5-07 (Same as: l 02:00: Zocor) [place] Ditropan XL No Notes: Mau agata 5-07 (Same as: l 02:00: Ditropan [place] 00 XL) "Do Not Crush" Pamelor No Notes: Memoria 5-07 (Same l 02:00: as:Pamelor Kamas 00 , Aventyl) metoprolol No Notes: Memor ia tartrate 5-07 (Same as: l 02:00: Lopressor) Kamas Trazodone No Notes: Memori a Hydrochlori 5-07 [...] Memoria 5-07 (Same as: l 02:00: Zocor) Kam[place] Ditropan XL No Notes: Mau agata 5-07 (Same as: l 02:00: Ditropan Kamas 00 XL) "Do Not Crush" Pamelor No Notes: Memoria 5-07 (Same l 02:00: as:Pamelor Kamas 00 , Aventyl) metoprolol No Notes: Memor ia tartrate 5-07 (Same as: l 02:00: Lopressor) [place] Trazodone No Notes: Memori a Hydrochlori 5-07 (Same As: l de 100 MG 02:00: Desyrel) Herm booker Oral Tablet 00 Zocor No Notes: Memoria 5-07 (Same as: l 02:00: Zocor) Kam[place] Ditropan XL No Notes: Mau agata 5-07 (Same as: l 02:00: Ditropan Kamas 00 XL) "Do Not Crush" Pamelor No Notes: Memoria 5-07 (Same l 02:00: as:Pamelor Kamas 00 , Aventyl) metoprolol No Notes: Memor ia tartrate 5-07 (Same as: l 02:00: Lopressor) Kamas Trazodone No Notes: Memori a Hydrochlori 5-07 [...] tartrate 5-07 (Same as: l 02:00: Lopressor) Kamas Trazodone No Notes: Memori a Hydrochlori 5-07 (Same As: l de 100 MG 02:00: Desyrel) Herm booker Oral Tablet 00 Zocor No Notes: Memoria 5-07 (Same as: l 02:00: Zocor) [place] Ditropan XL No Notes: Mau agata 5-07 (Same as: l 02:00: Ditropan [place] 00 XL) "Do Not Crush" Pamelor No Notes: Memoria 5-07 (Same l 02:00: as:Pamelor Kamas 00 , Aventyl) metoprolol No Notes: Memor ia tartrate 5-07 (Same as: l 02:00: Lopressor) Kamas Trazodone No Notes: Memori a Hydrochlori 5-07 (Same As: l de 100 MG 02:00: Desyrel) Herm booker Oral Tablet 00 Zocor No Notes: Memoria 5-07 (Same as: l 02:00: Zocor) [place] Ditropan XL No Notes: Mau agata 5-07 (Same as: l 02:00: Ditropan [place] 00 XL) "Do Not Crush" Pamelor No Notes: Memoria 5-07 (Same l 02:00: as:Pamelor Kamas 00 , Aventyl) metoprolol No Notes: Memor ia tartrate 5-07 (Same as: l 02:00: Lopressor) Kamas Trazodone No Notes: Memori a Hydrochlori 5-07 (Same As: l de 100 MG 02:00: Desyrel) Herm booker Oral Tablet 00 Zocor No Notes: Memoria 5-07 (Same as: l 02:00: Zocor) [place] Ditropan XL No Notes: Mau agata 5-07 (Same as: l 02:00: Ditropan Kamas 00 XL) "Do Not Crush" Pamelor No Notes: Memoria 5-07 (Same l 02:00: as:Pamelor Kamas 00 , Aventyl) metoprolol No Notes: Memor ia tartrate 5-07 (Same as: l 02:00: Lopressor) [place] Trazodone No Notes: Memori a Hydrochlori 5-07 (Same As: l de 100 MG 02:00: Desyrel) Herm booker Oral Tablet 00 Zocor No Notes: Memoria 5-07 (Same as: l 02:00: Zocor) Kam[place] Ditropan XL No Notes: Mau agata 5-07 (Same as: l 02:00: Ditropan [place] 00 XL) "Do Not Crush" Pamelor No Notes: Memoria 5-07 (Same l 02:00: as:Pamelor [place] , Aventyl) metoprolol No Notes: Memor ia tartrate 5-07 (Same as: l 02:00: Lopressor) Kamas Trazodone No Notes: Memori a Hydrochlori 5-07 (Same As: l de 100 MG 02:00: Desyrel) Herm booker Oral Tablet 00 Zocor No Notes: Memoria 5-07 (Same as: l 02:00: Zocor) [place] Ditropan XL No Notes: Mau agata 5-07 [...] Memoria 5-07 (Same as: l 02:00: Zocor) Kam[place] Ditropan XL No Notes: Mau agata 5-07 (Same as: l 02:00: Ditropan Kamas 00 XL) "Do Not Crush" Pamelor No Notes: Memoria 5-07 (Same l 02:00: as:Pamelor Kamas 00 , Aventyl) metoprolol No Notes: Memor ia tartrate 5-07 (Same as: l 02:00: Lopressor) Kamas Trazodone No Notes: Memori a Hydrochlori 5-07 (Same As: l de 100 MG 02:00: Desyrel) Herm booker Oral Tablet 00 Zocor No Notes: Memoria 5-07 (Same as: l 02:00: Zocor) [place] Ditropan XL No Notes: Mau agata 5-07 (Same as: l 02:00: Ditropan Kamas 00 XL) "Do Not Crush" Pamelor No Notes: Memoria 5-07 (Same l 02:00: as:Pamelor Kamas 00 , Aventyl) metoprolol No Notes: Memor ia tartrate 5-07 (Same as: l 02:00: Lopressor) [place] Trazodone No Notes: Memori a Hydrochlori 5-07 (Same As: l de 100 MG 02:00: Desyrel) Herm booker Oral Tablet 00 Zocor No Notes: Memoria 5-07 (Same as: l 02:00: Zocor) Kam[place] Ditropan XL No Notes: Mau agata 5-07 (Same as: l 02:00: Ditropan Kamas 00 XL) "Do Not Crush" Pamelor No Notes: Memoria 5-07 (Same l 02:00: as:Pamelor Nghia 00 , Aventyl) metoprolol No Notes: Memor ia tartrate 5-07 (Same as: l 02:00: Lopressor) Nghia Trazodone No Notes: Memori a Hydrochlori 5-07 (Same As: l de 100 MG 02:00: Desyrel) Herm booker Oral Tablet 00 Zocor No Notes: Memoria 5-07 (Same as: l 02:00: Zocor) Kamas Ditropan XL No Notes: Mau agata 5-07 (Same as: l 02:00: Ditropan Kamas 00 XL) "Do Not Crush" Pamelor No Notes: Memoria 5-07 (Same l 02:00: as:Pamelor Nghia 00 , Aventyl) metoprolol No Notes: Memor ia tartrate 5-07 (Same as: l 02:00: Lopressor) Nghia Trazodone No Notes: Memori a Hydrochlori 5-07 (Same As: l de 100 MG 02:00: Desyrel) Herm booker Oral Tablet 00 Zocor No Notes: Memoria 5-07 (Same as: l 02:00: Zocor) Kamas Ditropan XL No Notes: Mau agata 5-07 (Same as: l 02:00: Ditropan Kamas 00 XL) "Do Not Crush" Pamelor No [...] tartrate 5-07 (Same as: l 02:00: Lopressor) Kamas 00 Pentasa No Notes: Memoria 5-06 (Same as: l 22:00: Pentasa) Kamas 00 Do not open capsule. "Do Not Crush" Pentasa No Notes: Memoria 5-06 (Same as: l 22:00: Pentasa) Nghia 00 Do not open capsule. "Do Not Crush" Pentasa No Notes: Memoria 5-06 (Same as: l 22:00: Pentasa) Kamas 00 Do not open capsule. "Do Not Crush" Pentasa No Notes: Memoria 5-06 (Same as: l 22:00: Pentasa) Nghia 00 Do not open capsule. "Do Not Crush" Pentasa No Notes: Memoria 5-06 (Same as: l 22:00: Pentasa) Kamas 00 Do not open capsule. "Do Not Crush" Pentasa No Notes: Memoria 5-06 (Same as: l 22:00: Pentasa) Nghia 00 Do not open capsule. "Do Not Crush" Pentasa No Notes: Memoria 5-06 (Same as: l 22:00: Pentasa) Kamas 00 Do not open capsule. "Do Not Crush" Pentasa No Notes: Memoria 5-06 (Same as: l 22:00: Pentasa) Nghia 00 Do not open capsule. "Do Not Crush" Pentasa 2013-0 No Notes: Memoria 5-06 (Same as: l 22:00: Pentasa) Nghia 00 Do not open capsule. "Do Not Crush" Pentasa 0 No Notes: Memoria 5-06 (Same as: l 22:00: Pentasa) Kamas 00 Do not open capsule. "Do Not Crush" Pentasa 0 No Notes: Memoria 5-06 (Same as: l 22:00: Pentasa) Nghia 00 Do not open capsule. "Do Not Crush" Pentasa 0 No Notes: Memoria 5-06 (Same as: l 22:00: Pentasa) Kamas 00 Do not open capsule. "Do Not [...] Memoria 5-06 (Same as: l 22:00: Pentasa) Kamas 00 Do not open capsule. "Do Not Crush" Pentasa 0 No Notes: Memoria 5-06 (Same as: l 22:00: Pentasa) Nghia 00 Do not open capsule. "Do Not Crush" Pentasa 0 No Notes: Memoria 5-06 (Same as: l 22:00: Pentasa) Kamas 00 Do not open capsule. "Do Not Crush" Pentasa 0 No Notes: Memoria 5-06 (Same as: l 22:00: Pentasa) Kamas 00 Do not open capsule. "Do Not Crush" Pentasa 0 No Notes: Memoria 5-06 (Same as: l 22:00: Pentasa) Nghia 00 Do not open capsule. "Do Not Crush" Pentasa 2013-0 No Notes: Memoria 5-06 (Same as: l 22:00: Pentasa) Nghia 00 Do not open capsule. "Do Not Crush" Ketorolac 2013-0 No 4 days. Mau agata Tromethamin 5-06 l e 15 MG/ML 12:43: Kamas Injectable 00 Solution Ketorolac 2013-0 No 4 days. Mau agata Tromethamin 5-06 l e 15 MG/ML 12:43: Nghia Injectable 00 Solution Ketorolac 2013-0 No 4 days. Mau agata Tromethamin 5-06 l e 15 MG/ML 12:43: Nghia Injectable 00 Solution Ketorolac 2013-0 No 4 days. Mau agata Tromethamin 5-06 l e 15 MG/ML 12:43: Kamas Injectable 00 Solution Ketorolac 2013-0 No 4 days. Mau agata Tromethamin 5-06 l e 15 MG/ML 12:43: Kamas Injectable 00 Solution Ketorolac 2013-0 No 4 days. Mau agata Tromethamin 5-06 l e 15 MG/ML 12:43: Kamas Injectable 00 Solution Ketorolac 2013-0 No 4 [...] Tromethamin 5-06 l e 15 MG/ML 12:43: Kamas Injectable 00 Solution Ketorolac 2013-0 No 4 days. Mau agata Tromethamin 5-06 l e 15 MG/ML 12:43: Nghia Injectable 00 Solution Ketorolac 2013-0 No 4 days. Mau agata Tromethamin 5-06 l e 15 MG/ML 12:43: Nghia Injectable 00 Solution Ketorolac 2013-0 No 4 days. Mua agata Tromethamin 5-06 l e 15 MG/ML [...] Tromethamin 5-06 l e 15 MG/ML 12:43: Kamas Injectable 00 Solution Ketorolac 2013-0 No 4 days. Mau agata Tromethamin 5-06 l e 15 MG/ML 12:43: Kamas Injectable 00 Solution Ketorolac 2013-0 No 4 [...] Memoria 5-05 (Same as: l 22:00: Habitrol) Kamas 00 "Remove old patch before applicatio n [...] Memoria 5-05 (Same as: l 22:00: Habitrol) Kamas 00 "Remove old patch before applicatio n of new patch" Nicotine No Notes: Memoria 5-05 (Same as: l 22:00: Habitrol) Nghia 00 "Remove old patch before applicatio n of new patch" Nicotine No Notes: Memoria 5-05 (Same as: l 22:00: Habitrol) Kamas 00 "Remove old patch before applicatio n of new patch" Nicotine No Notes: Memoria 5-05 (Same as: l 22:00: Habitrol) Kamas 00 "Remove old patch before applicatio n of new patch" Nicotine No Notes: Memoria 5-05 (Same as: l 22:00: Habitrol) Nghia 00 "Remove old patch before applicatio n of new patch" Nicotine No Notes: Memoria 5-05 (Same as: l 22:00: Habitrol) Kamas 00 "Remove old patch before applicatio n of new patch" Nicotine No Notes: Memoria 5-05 (Same as: l 22:00: Habitrol) Kamas 00 "Remove old patch before applicatio n of new patch" Nicotine No Notes: Memoria 5-05 (Same as: l 22:00: Habitrol) Kamas 00 "Remove old patch before applicatio n of new patch" Nicotine No Notes: Memoria 5-05 (Same as: l 22:00: Habitrol) Kamas 00 "Remove old patch before applicatio n of new patch" Nicotine No Notes: Memoria 5-05 (Same as: l 22:00: Habitrol) Kamas 00 "Remove old patch before applicatio n of new patch" Nicotine No Notes: Memoria 5-05 (Same as: l 22:00: Habitrol) Nghia 00 "Remove old patch before applicatio n of new patch" Nicotine No Notes: Memoria 5-05 (Same as: l 22:00: Habitrol) Kamas 00 "Remove old patch before applicatio n of new patch" Nicotine No Notes: Memoria 5-05 (Same as: l 22:00: Habitrol) Kamas 00 "Remove old patch before applicatio n of new patch" Protonix No Notes: For Mem oria 5-05 IV push l 21:30: reconstitu Nghia 00 te with 10 ml 0.9% sodium chloride and push over 2 minutes. (Same as: Protonix) Protonix No Notes: For Mem oria 5-05 IV push l 21:30: reconstitu Kamas 00 te with 10 ml 0.9% sodium chloride and push over 2 minutes. (Same as: Protonix) Protonix No Notes: For Mem oria 5-05 IV push l 21:30: reconstitu Kamas 00 te with 10 ml 0.9% sodium chloride and push over 2 minutes. (Same as: Protonix) Protonix No Notes: For Mem oria 5-05 IV push l 21:30: reconstitu Kamas 00 te with 10 ml 0.9% sodium chloride and push over 2 minutes. (Same as: Protonix) Protonix No Notes: For Mem oria 5-05 IV push l 21:30: reconstitu Kamas 00 te with 10 ml 0.9% sodium chloride and push over 2 minutes. (Same as: Protonix) Protonix No Notes: For Mem oria 5-05 IV push l 21:30: reconstitu Kamas 00 te with 10 ml 0.9% sodium chloride and push over 2 minutes. (Same as: Protonix) Protonix No Notes: For Mem oria 5-05 IV push l 21:30: reconstitu Kamas 00 te with 10 ml 0.9% sodium chloride and push over 2 minutes. (Same as: Protonix) Protonix No Notes: For Mem oria 5-05 IV push l 21:30: reconstitu Kamas 00 te with 10 ml 0.9% sodium [...] oria 5-05 IV push l 21:30: reconstitu Kamas 00 te with 10 ml 0.9% sodium chloride and push over 2 minutes. (Same as: Protonix) Protonix No Notes: For Mem oria 5-05 IV push l 21:30: reconstitu Nghia 00 te with 10 ml 0.9% sodium chloride and push over 2 minutes. (Same as: Protonix) Protonix No Notes: For Mem oria 5-05 IV push l 21:30: reconstitu Kamas 00 te with 10 ml 0.9% sodium chloride and push over 2 minutes. (Same as: Protonix) Protonix No Notes: For Mem oria 5-05 IV push l 21:30: reconstitu Nghia 00 te with 10 ml 0.9% sodium chloride and push over 2 minutes. (Same as: Protonix) Protonix No Notes: For Mem oria 5-05 IV push l 21:30: reconstitu Kamas 00 te with 10 ml 0.9% sodium chloride and push over 2 minutes. (Same as: Protonix) Protonix No Notes: For Mem oria 5-05 IV push l 21:30: reconstitu Kamas 00 te with 10 ml 0.9% sodium [...] PO, l 3 MG 11:54: Daily, # Kamas Extended 00 90 cap, 0 Release Refill(s) [...] 4 cap, l Extended 11:54: BID, 0 Kamas Release 00 Refill(s) Capsule [Pentasa] sertraline Yes [...] tab, PO, l tablet 11:54: Daily, # Kamas 00 30 tab, 0 Refill(s) dicyclomine Yes [...] cap, PO, l Oral 11:54: Bedtime, # Kamas Capsule 00 90 cap, 0 [Pamelor] Refill(s) [...] tab, PO, l tablet 11:54: Daily, # Kamas 00 30 tab, 0 Refill(s) dicyclomine Yes [...] 0 Memoria Bicarbonate 5-05 Refill(s) l 11:54: Kamas 00 methocarbam Yes 750 mg = 1 [...] PO, l 3 MG 11:54: Daily, # Kamas Extended 00 90 cap, 0 Release Refill(s) [...] tab, PO, l Tablet 11:54: Daily, # Kamas [Zantac] 00 30 tab, 0 Refill(s) Sodium Yes 0 Memoria Bicarbonate 5-05 Refill(s) l 11:54: Kamas 00 methocarbam Yes 750 mg = 1 [...] PO, l 3 MG 11:54: Daily, # Kamas Extended 00 90 cap, 0 Release Refill(s) [...] 4 cap, l Extended 11:54: BID, 0 Kamas Release 00 Refill(s) Capsule [Pentasa] sertraline Yes 100 mg = 1 M emoria 100 mg oral 5-05 tab, PO, l tablet 11:54: Daily, # Kamas 00 30 tab, 0 Refill(s) dicyclomine Yes [...] 0 Memoria Bicarbonate 5-05 Refill(s) l 11:54: Kamas 00 methocarbam Yes 750 mg = 1 [...] PO, l 3 MG 11:54: Daily, # Kamas Extended 00 90 cap, 0 Release Refill(s) [...] 0 Memoria Bicarbonate 5-05 Refill(s) l 11:54: Kamas 00 methocarbam Yes 750 mg = 1 [...] PO, l 3 MG 11:54: Daily, # Kamas Extended 00 90 cap, 0 Release Refill(s) [...] 4 cap, l Extended 11:54: BID, 0 Kamas Release 00 Refill(s) Capsule [Pentasa] sertraline Yes [...] cap, PO, l Oral 11:54: Bedtime, # Kamas Capsule 00 90 cap, 0 [Pamelor] Refill(s) [...] 0 Memoria Bicarbonate 5-05 Refill(s) l 11:54: Kamas 00 methocarbam Yes 750 mg = 1 [...] PO, l 3 MG 11:54: Daily, # Kamas Extended 00 90 cap, 0 Release Refill(s) [...] cap, PO, l Oral 11:54: Bedtime, # Kamas Capsule 00 90 cap, 0 [Pamelor] Refill(s) [...] 4 cap, l Extended 11:54: BID, 0 Kamas Release 00 Refill(s) Capsule [Pentasa] sertraline Yes [...] 4 cap, l Extended 11:54: BID, 0 Kamas Release 00 Refill(s) Capsule [Pentasa] sertraline Yes [...] 0 Memoria Bicarbonate 5-05 Refill(s) l 11:54: Kamas 00 methocarbam Yes 750 mg = 1 [...] PO, l 3 MG 11:54: Daily, # Kamas Extended 00 90 cap, 0 Release Refill(s) [...] 4 cap, l Extended 11:54: BID, 0 Kamas Release 00 Refill(s) Capsule [Pentasa] sertraline Yes 100 mg = 1 M emoria 100 mg oral 5-05 tab, PO, l tablet 11:54: Daily, # Kamas 00 30 tab, 0 Refill(s) dicyclomine Yes [...] PO, l chloride 10 11:54: Bedtime, # Kamas MG Extended 00 30 tab, 0 Release Refill(s) Tablet [Ditropan] Trazodone Yes 100 mg = 1 Me moria Hydrochlori 5-05 tab, PO, l de 100 MG 11:54: Bedtime, # He rmann Oral Tablet 00 90 tab, 0 Refill(s) Ranitidine Yes 300 mg = 1 M emoria 300 MG Oral 5-05 tab, PO, l Tablet 11:54: Daily, # Kamas [Zantac] 00 30 tab, 0 Refill(s) Sodium [...] PO, l 3 MG 11:54: Daily, # Kamas Extended 00 90 cap, 0 Release Refill(s) [...] 0 Memoria Bicarbonate 5-05 Refill(s) l 11:54: Kamas 00 methocarbam Yes 750 mg = 1 Memoria ol 750 mg 5-05 tab, PO, l oral tablet 11:54: Daily, # He rmann 00 60 tab, 0 Refill(s) Omeprazole Yes 40 mg = 1 Me moria 40 MG 5-05 cap, PO, l Enteric 11:54: Daily, # Moncho n Coated 00 30 cap, 0 Capsule Refill(s) [Prilosec] 24 HR 2014-0 Yes 9 mg = 3 Memoria Budesonide [...] tab, PO, l tablet 11:54: Daily, # Kamas 00 30 tab, 0 Refill(s) dicyclomine Yes [...] cap, PO, l Oral 11:54: Bedtime, # Kamas Capsule 00 90 cap, 0 [Pamelor] Refill(s) [...] tab, PO, l Tablet 11:54: Daily, # Kamas [Zantac] 00 30 tab, 0 Refill(s) Sodium Yes 0 Memoria Bicarbonate 5-05 Refill(s) l 11:54: Kamas 00 methocarbam Yes 750 mg = 1 [...] tab, PO, l tablet 11:54: Daily, # Kamas 00 30 tab, 0 Refill(s) dicyclomine Yes [...] 0 Memoria Bicarbonate 5-05 Refill(s) l 11:54: Kamas 00 methocarbam Yes 750 mg = 1 [...] 4 cap, l Extended 11:54: BID, 0 Kamas Release 00 Refill(s) Capsule [Pentasa] sertraline Yes [...] PO, l chloride 10 11:54: Bedtime, # Kamas MG Extended 00 30 tab, 0 Release Refill(s) Tablet [Ditropan] Trazodone Yes 100 mg = 1 Me moria Hydrochlori 5-05 tab, PO, l de 100 MG 11:54: Bedtime, # He rmann Oral Tablet 00 90 tab, 0 Refill(s) Ranitidine Yes 300 mg = 1 M emoria 300 MG Oral 5-05 tab, PO, l Tablet 11:54: Daily, # Kamas [Zantac] 00 30 tab, 0 Refill(s) Sodium [...] 4 cap, l Extended 11:54: BID, 0 Kamas Release 00 Refill(s) Capsule [Pentasa] sertraline Yes 100 mg = 1 M emoria 100 mg oral 5-05 tab, PO, l tablet 11:54: Daily, # Kamas 00 30 tab, 0 Refill(s) dicyclomine Yes [...] cap, PO, l Oral 11:54: Bedtime, # Kamas Capsule 00 90 cap, 0 [Pamelor] Refill(s) [...] 0 Memoria Bicarbonate 5-05 Refill(s) l 11:54: Kamas 00 methocarbam Yes 750 mg = 1 [...] 4 cap, l Extended 11:54: BID, 0 Kamas Release 00 Refill(s) Capsule [Pentasa] sertraline Yes 100 mg = 1 M emoria 100 mg oral 5-05 tab, PO, l tablet 11:54: Daily, # Kamas 00 30 tab, 0 Refill(s) dicyclomine Yes [...] cap, PO, l Oral 11:54: Bedtime, # Kamas Capsule 00 90 cap, 0 [Pamelor] Refill(s) [...] PO, l 3 MG 11:54: Daily, # Kamas Extended 00 90 cap, 0 Release Refill(s) [...] 4 cap, l Extended 11:54: BID, 0 Kamas Release 00 Refill(s) Capsule [Pentasa] sertraline Yes [...] cap, PO, l Oral 11:54: Bedtime, # Kamas Capsule 00 90 cap, 0 [Pamelor] Refill(s) [...] 0 Memoria Bicarbonate 5-05 Refill(s) l 11:54: Kamas 00 methocarbam Yes 750 mg = 1 [...] tab, PO, l tablet 11:54: Daily, # Kamas 00 30 tab, 0 Refill(s) dicyclomine Yes [...] 4 cap, l Extended 11:54: BID, 0 Kamas Release 00 Refill(s) Capsule [Pentasa] sertraline Yes 100 mg = 1 M emoria 100 mg oral 5-05 tab, PO, l tablet 11:54: Daily, # Kamas 00 30 tab, 0 Refill(s) dicyclomine Yes [...] PO, l chloride 10 11:54: Bedtime, # Kamas MG Extended 00 30 tab, 0 Release [...] 0 Memoria Bicarbonate 5-05 Refill(s) l 11:54: Kamas 00 methocarbam Yes 750 mg = 1 [...] PO, l 3 MG 11:54: Daily, # Kamas Extended 00 90 cap, 0 Release Refill(s) [...] tab, PO, l tablet 11:54: Daily, # Kamas 00 30 tab, 0 Refill(s) dicyclomine Yes [...] cap, PO, l Oral 11:54: Bedtime, # Kamas Capsule 00 90 cap, 0 [Pamelor] Refill(s) 24 HR Yes 10 mg = 1 Memoria Oxybutynin 5-05 tab, PO, l chloride 10 11:54: Bedtime, # Kamas MG Extended 00 30 tab, 0 Release Refill(s) Tablet [Ditropan] Trazodone Yes 100 mg = 1 Me moria Hydrochlori 5-05 tab, PO, l de 100 MG 11:54: Bedtime, # He rmann Oral Tablet 00 90 tab, 0 Refill(s) Ranitidine Yes 300 mg = 1 M emoria 300 MG Oral 5-05 tab, PO, l Tablet 11:54: Daily, # Kamas [Zantac] 00 30 tab, 0 Refill(s) Sodium [...] PO, l 3 MG 11:54: Daily, # Kamas Extended 00 90 cap, 0 Release Refill(s) [...] 4 cap, l Extended 11:54: BID, 0 Kamas Release 00 Refill(s) Capsule [Pentasa] sertraline Yes 100 mg = 1 M emoria 100 mg oral 5-05 tab, PO, l tablet 11:54: Daily, # Kamas 00 30 tab, 0 Refill(s) dicyclomine Yes [...] cap, PO, l Oral 11:54: Bedtime, # Kamas Capsule 00 90 cap, 0 [Pamelor] Refill(s) [...] Notes: Memoria 5-05 (Same l 09:01: as:MORPhin Kamas 00 e Sulfate) Morphine No Notes: Memoria 5-05 (Same l 09:01: as:MORPhin Kamas 00 e Sulfate) Morphine No Notes: Memoria 5-05 (Same l 09:01: as:MORPhin Kamas 00 e Sulfate) Morphine No Notes: Memoria 5-05 (Same l 09:01: as:MORPhin [place] 00 e Sulfate) Morphine No Notes: Memoria 5-05 (Same l 09:01: as:MORPhin Kamas 00 e Sulfate) Morphine No Notes: Memoria 5-05 (Same l 09:01: as:MORPhin [place] 00 e Sulfate) Morphine No Notes: Memoria 5-05 (Same l 09:01: as:MORPhin Kamas 00 e Sulfate) Morphine No Notes: Memoria 5-05 (Same l 09:01: as:MORPhin [place] 00 e Sulfate) Morphine No Notes: Memoria 5-05 (Same l 09:01: as:MORPhin Kamas 00 e Sulfate) Morphine No Notes: Memoria [...] Notes: Memoria 5-05 (Same l 09:01: as:MORPhin Kamas 00 e Sulfate) Morphine No Notes: Memoria 5-05 (Same l 09:01: as:MORPhin Kamas 00 e Sulfate) Morphine No Notes: Memoria 5-05 (Same l 09:01: as:MORPhin [place] 00 e Sulfate) Morphine No Notes: Memoria 5-05 (Same l 09:01: as:MORPhin [place] 00 e Sulfate) Morphine No Notes: Memoria 5-05 (Same l 09:01: as:MORPhin [place] 00 e Sulfate) Morphine No Notes: Memoria 5-05 (Same l 09:01: as:MORPhin Kamas 00 e Sulfate) Morphine No Notes: Memoria 5-05 (Same l 09:01: as:MORPhin [place] 00 e Sulfate) Morphine No Notes: Memoria 5-05 (Same l 09:01: as:MORPhin Kamas 00 e Sulfate) Zofran No Notes: Memoria 5-05 (Same as: l 09:00: Zofran) N[place] 00 Lovenox No Notes: Memoria 5-05 (Same as: l 09:00: Lovenox) Kamas 00 Zofran No Notes: Memoria 5-05 (Same as: l 09:00: Zofran) Kamas 00 Lovenox No Notes: Memoria 5-05 (Same as: l 09:00: Lovenox) N[place] 00 Zofran No Notes: Memoria 5-05 (Same as: l 09:00: Zofran) N[place] 00 Lovenox No Notes: Memoria 5-05 (Same as: l 09:00: Lovenox) Kamas 00 Zofran 2014-0 No Notes: Memoria 5-05 (Same as: l 09:00: Zofran) N[place] 00 Lovenox No Notes: Memoria 5-05 (Same as: l 09:00: Lovenox) [place] 00 Zofran No Notes: Memoria 5-05 (Same as: l 09:00: Zofran) Kamas 00 Lovenox No Notes: Memoria 5-05 (Same as: l 09:00: Lovenox) N[place] 00 Zofran No Notes: Memoria 5-05 (Same as: l 09:00: Zofran) Kamas 00 Lovenox No Notes: Memoria 5-05 (Same as: l 09:00: Lovenox) Kamas 00 Zofran No Notes: Memoria 5-05 (Same as: l 09:00: Zofran) [place] 00 Lovenox No Notes: Memoria 5-05 (Same as: l 09:00: Lovenox) Kamas 00 Zofran No Notes: Memoria 5-05 (Same as: l 09:00: Zofran) N[place] 00 Lovenox No Notes: Memoria 5-05 (Same as: l 09:00: Lovenox) [place] 00 Zofran No Notes: Memoria 5-05 (Same as: l 09:00: Zofran) Kamas 00 Lovenox No Notes: Memoria 5-05 (Same as: l 09:00: Lovenox) [place] 00 Zofran No Notes: Memoria 5-05 (Same as: l 09:00: Zofran) [place] 00 Lovenox No Notes: Memoria 5-05 (Same as: l 09:00: Lovenox) Kamas 00 Zofran No Notes: Memoria 5-05 (Same as: l 09:00: Zofran) Kamas 00 Lovenox No Notes: Memoria 5-05 (Same as: l 09:00: Lovenox) [place] 00 Zofran No Notes: Memoria 5-05 (Same as: l 09:00: Zofran) Kamas 00 Lovenox No Notes: Memoria 5-05 (Same as: l 09:00: Lovenox) Kamas 00 Zofran No Notes: Memoria 5-05 (Same as: l 09:00: Zofran) Kamas 00 Lovenox No Notes: Memoria 5-05 (Same as: l 09:00: Lovenox) Kamas 00 Zofran No Notes: Memoria 5-05 (Same as: l 09:00: Zofran) N[place] 00 Lovenox No Notes: Memoria 5-05 (Same as: l 09:00: Lovenox) Kamas 00 Zofran No Notes: Memoria 5-05 (Same as: l 09:00: Zofran) Ngh[place] 00 Lovenox No Notes: Memoria 5-05 (Same as: l 09:00: Lovenox) Ngh[place] 00 Zofran No Notes: Memoria 5-05 (Same as: l 09:00: Zofran) Kamas 00 Lovenox No Notes: Memoria 5-05 (Same as: l 09:00: Lovenox) Kamas 00 Zofran No Notes: Memoria 5-05 (Same as: l 09:00: Zofran) Ngh[place] 00 Lovenox No Notes: Memoria 5-05 (Same as: l 09:00: Lovenox) Kamas 00 Zofran No Notes: Memoria 5-05 (Same as: l 09:00: Zofran) Kamas 00 Lovenox No Notes: Memoria 5-05 (Same as: l 09:00: Lovenox) Kamas 00 Zofran No Notes: Memoria 5-05 (Same as: l 09:00: Zofran) Ngh[place] 00 Lovenox No Notes: Memoria 5-05 (Same as: l 09:00: Lovenox) Ngh[place] 00 Zofran No Notes: Memoria 5-05 (Same as: l 09:00: Zofran) N[place] 00 Lovenox No Notes: Memoria 5-05 (Same as: l 09:00: Lovenox) Kamas 00 Zofran No Notes: Memoria 5-05 (Same [...] Immunizations Ordered Filled Immunization Date Status Comments [facility] e Immunization Name Name Covid-19 Vaccine 2021-05-[address] [facility] MRNA (PF) 18yr+ 00:00:00 [facility] enter (Moderna)([id number]) Covid-19 Vaccine 2021-05-[address] [facility] MRNA (PF) 18yr+ 00:00:00 Medical C enter (Moderna)([id number]) SARS-COV-2 COVID-19 2021-05-15 Completed [facility] of [facility] VACCINE 00:00:00 [facility] SARS-COV-2 COVID-19 2021-05-15 Completed Unive rsity of [facility]ERNA VACCINE 00:00:00 [facility] SARS-COV-2 COVID-19 2021-05-15 Completed Unive rsity of [facility]ERNA VACCINE 00:00:00 [facility] SARS-COV-2 COVID-19 2021-05-15 Completed Unive rsity of [...] YRS 00:00:00 [place] [facility] Covid-19 Vaccine 2021-04-[address] [facility] MRNA (PF) 18yr+ 00:00:00 Medical C enter (Moderna)([id number]) Covid-19 Vaccine 2021-04-[address] [facility] MRNA (PF) 18yr+ 00:00:00 Medical C enter (Moderna)([id number]) SARS-COV-2 COVID-19 2021-04-17 Completed Unive rsity of [...] Unive rsity of MODERNA 12+ YRS 00:00:00 [place] [facility] Tdap 2018-04-13 Completed [facility] 00:00:00 [facility] 2018-04-13 Completed [facility] 00:00:00 [facility] 2018-04-13 Completed [facility] 00:00:00 [facility] 2018-04-13 Completed [facility] 00:00:00 [facility] 2018-04-13 Completed [facility] 00:00:00 [facility] 2018-04-13 Completed [facility] 00:00:00 [facility] 2018-04-13 Completed [facility] 00:00:00 [facility] 2018-04-13 Completed [facility] 00:00:00 [facility] 2018-04-13 Completed [facility] 00:00:00 [facility] 2018-04-13 Completed [facility] 00:00:00 [facility] 2018-04-13 Completed [facility] 00:00:00 [facility] 2018-04-13 Completed [facility] 00:00:00 [facility] 2018-04-13 Completed [facility] 00:00:00 [facility] 2018-04-13 Completed [facility] 00:00:00 [facility] 2018-04-13 Completed [facility] 00:00:00 [facility] 2018-04-13 Completed [facility] 00:00:00 [facility] 2018-04-13 Completed [facility] 00:00:00 [facility] Vital Signs Vital Name Observation Time Observation Value Comments Source WEIGHT 2023-05-11 12:00:00 60.782 kg WEIGHT 2023-05-11 12:00:00 60.782 kg WEIGHT 2023-05-11 12:00:00 60.782 kg WEIGHT 2023-03-14 12:02:00 60.646 kg WEIGHT 2023-03-14 12:02:00 60.646 kg WEIGHT 2023-03-14 12:02:00 60.646 kg WEIGHT 2023-01-10 13:58:00 60.51 kg WEIGHT 2023-01-10 13:58:00 60.51 kg WEIGHT 2023-01-10 13:58:00 60.51 kg Systolic blood 2022-12-06 18:27:00 120 mm[Hg] Univer sity of pressure [facility] Diastolic blood 2022-12-06 18:27:00 75 mm[Hg] Unive rsity of pressure [facility] Heart rate 2022-12-06 18:27:00 54 /min [facility] Respiratory rate 2022-12-06 18:27:00 16 /min [facility] ers[facility] Body height 2022-12-06 18:27:00 154.9 cm [facility] Body weight 2022-12-06 18:27:00 58.786 kg Universi ty [facility] BMI 2022-12-06 18:27:00 24.49 kg/m2 [facility] Oxygen saturation in 2022-12-06 18:27:00 93 /min [facility] Arterial blood by [facility] Pulse oximetry Branch HEIGHT 2022-09-13 11:50:00 153.7 [...] 160 mm[Hg] Univer sity of pressure [facility] Diastolic blood 2021-11-30 15:18:00 82 mm[facility]Hg[facility] 2021-11-30 14:45:00 59 /min [facility] Body temperature 2021-11-30 14:45:[address] [facility] 2021-11-30 14:45:00 18 /min [facility] Body height 2021-11-30 14:45:00 154.9 cm [facility] Body weight 2021-11-30 14:45:00 58.832 kg [facility] BMI 2021-11-30 14:45:00 24.51 kg/m2 [facility] Systolic blood 2023-05-11 12:00:00 129 mm[Hg] [facility] Diastolic blood 2023-05-11 12:00:00 77 mm[Hg] [facility] Heart rate 2023-05-11 12:00:00 58 /min [facility] Body temperature 2023-05-11 12:00:00 35.89 Carla [facility] Respiratory rate 2023-05-11 12:00:00 17 /min [facility] Body weight 2023-05-11 12:00:00 60.782 kg [facility] BMI 2023-05-11 12:00:00 25.74 kg/m2 [facility] Oxygen saturation in 2023-05-11 12:00:00 96 /min [facility] Arterial blood by [facility] Pulse oximetry Systolic blood 2023-03-14 12:02:00 131 mm[Hg] [facility] Diastolic blood 2023-03-14 12:02:00 73 mm[Hg] [facility] Heart rate 2023-03-14 12:02:00 54 /min [facility] Body temperature 2023-03-14 12:02:00 36.11 Carla [facility] Respiratory rate 2023-03-14 12:02:00 16 /min [facility] Body weight 2023-03-14 12:02:00 60.646 kg [facility] BMI 2023-03-14 12:02:00 25.68 kg/m2 [facility] Oxygen saturation in 2023-03-14 12:02:00 95 /min [facility] Arterial blood by [facility] Pulse oximetry Body height 2022-09-13 11:50:00 153.7 cm actual [facility] Heart rate 2022-09-13 11:50:00 60 /min [facility] Body temperature 2022-09-13 11:50:00 36.22 Carla [facility] Respiratory rate 2022-09-13 11:50:00 16 /min [facility] Body weight 2022-09-13 11:50:00 58.741 kg [facility] BMI 2022-09-13 11:50:00 24.87 kg/m2 [facility] Oxygen saturation in 2022-09-13 11:50:00 96 /min [facility] Arterial blood by [facility] Pulse oximetry Heart rate 2022-06-21 14:37:00 86 /min [facility] Body temperature 2022-06-21 14:37:00 36.28 Carla [facility] Respiratory rate 2022-06-21 14:37:00 18 /min [facility] Body height 2022-06-21 14:37:00 154.9 cm [facility] Body weight 2022-06-21 14:37:00 58.65 kg [facility] BMI 2022-06-21 14:37:00 24.43 kg/m2 [facility] Oxygen saturation in 2022-06-21 14:37:00 95 /min [facility] Arterial blood by [facility] Pulse oximetry Systolic blood 2022-06-21 14:37:00 154 mm[Hg] [facility] Diastolic blood 2022-06-21 14:37:00 85 mm[Hg] [facility] Weight 2014-05-16 14:54:00 [facility] BMI Calculated 2014-05-16 14:54:00 Morgan Mccann Height 2014-05-16 14:54:00 160.02 cm [facility] Respitory Rate 2014-01-02 20:58:00 [facility] Heart Rate 2014-01-02 20:58:00 [facility] Temperature Oral (F) 2014-01-02 20:58:00 98.4 F [facility] Diastolic (mm Hg) 2014-01-02 20:58:00 Mem orial Kamas Systolic (mm Hg) 2014-01-02 20:58:00 Mau rial Kamas Temperature Oral (F) 2014-01-02 16:23:00 98.2 F [facility] Heart Rate 2014-01-02 16:23:00 [facility] Respitory Rate 2014-01-02 16:23:00 Memori al Kamas Systolic (mm Hg) 2014-01-02 16:23:00 Mau rial [place] Diastolic (mm Hg) 2014-01-02 16:23:00 Mem orial Kamas Diastolic (mm Hg) 2014-01-02 12:20:00 Mem orial [place] Systolic (mm Hg) 2014-01-02 12:20:00 Mau rial [place] Respitory Rate 2014-01-02 12:20:00 Memori al Kamas Temperature Oral (F) 2014-01-02 12:20:00 98.5 F [facility] Heart Rate 2014-01-02 12:20:00 [facility] Weight 2013-12-30 08:54:00 [facility] Height 2013-12-30 08:54:00 162.56 cm [facility] BMI Calculated 2013-12-30 08:54:00 [facility] [place] Weight 2013-12-30 08:52:00 [facility] BMI Calculated 2013-12-30 08:52:00 [facility] Height 2013-12-30 08:52:00 162.56 cm [facility] Weight 2013-12-30 08:40:00 [facility] BMI Calculated 2013-12-30 08:40:00 [facility] Height 2013-12-30 08:40:00 162.56 cm [facility] Procedures Procedure Date / Time Performing Clinician Source Performed CBC W/PLT COUNT & AUTO 2023-05-11 12:09:00 Jae Poole [facility] CBC W/PLT COUNT & AUTO 2023-05-11 12:09:00 Jae Poole [facility] DIFFERENTIAL Center BASIC METABOLIC PANEL 2023-05-11 12:08:00 Jae Poole [facility] CBC W/PLT COUNT & AUTO 2023-03-14 11:59:00 Jae Poolent [facility] BASIC METABOLIC PANEL 2023-03-14 11:59:00 Jae Poole [facility] LIPID PANEL 2023-03-14 11:59:00 Jae Poolent [facility] CBC W/PLT COUNT & AUTO 2023-03-14 11:59:00 RylanelmoKandisby Howie [facility] CBC W/PLT COUNT & AUTO 2023-01-10 14:01:00 RylanelmoKandisemily Denise [facility] BASIC METABOLIC PANEL 2023-01-10 14:01:00 RylankristyJae escamilla [facility] [place] [facility] CBC W/PLT COUNT & AUTO 2023-01-10 14:01:00 RylanelmoJae [facility]ie [facility] ASSIGNMENT OF BENEFITS 2022-12-06 18:06:09 Doctor Unassigned, No [facility] CBC W/PLT COUNT & AUTO 2022-09-13 11:59:00 Rylanelmo [place] Denise [facility] COMPREHENSIVE METABOLIC 2022-09-13 11:59:00 Zulema [place] [facility] PANEL Center CBC W/PLT COUNT & AUTO 2022-09-13 11:59:00 [facility] HEART-CORONARY 2022-07-18 15:37:00 Johnny Pantoja [facility] ARTERIES CALCIUM SCORE Center SCREENING WITHOUT IV CONTRAST 2D ECHO W/ DOPPLER 2022-07-18 13:04:08 Johnny Pantoja [facility] (CW/PW/COLOR) [place] 2D ECHO W/ DOPPLER 2022-07-18 13:04:08 Johnny Pantoja [facility] (CW/PW/COLOR) Center ECG 12-LEAD 2022-06-21 14:31:02 [facility] ECG 12-LEAD 2022-06-21 14:31:02 Unknown, Hl7 [facility] ECG 12-LEAD 2022-06-21 14:31:02 Unknown, Hl7 [facility] CBC W/PLT COUNT & AUTO 2022-06-21 14:30:00 [facility] DIFFERENTIAL Center COMPREHENSIVE METABOLIC 2022-06-21 14:30:00 [facility] PANEL Center CBC W/PLT COUNT & AUTO 2022-06-21 14:30:00 [facility] NM MYOCARDIAL PERFUSION 2022-05-16 16:14:00 [facility] SPECT, PHARM Center APTT 2022-05-16 15:02:00 [facility] TREADMILL 2022-05-16 13:51:06 Unknown, Hl7 [facility] TOLERANCE(NON-NUCLEAR Center TREADMILL) TREADMILL 2022-05-16 13:51:06 Unknown, Hl7 [facility] TOLERANCE(NON-NUCLEAR Center TREADMILL) ECG 12-LEAD 2022-05-16 13:28:19 Unknown, 7 [facility] ECG 12-LEAD 2022-05-16 13:28:19 Unknown, 7 [facility] ECG 12-LEAD 2022-05-16 13:27:51 Unknown, 7 [facility] ECG 12-LEAD 2022-05-16 13:27:51 Unknown, 7 [facility] APTT 2022-05-16 03:57:00 Noé [facility] CBC (HEMOGRAM ONLY) 2022-05-16 03:57:00 Leanne Mcdonnell [facility] BASIC METABOLIC PANEL 2022-05-16 03:57:00 Leanne Mcdonnell [facility] MAGNESIUM 2022-05-16 03:57:00 Leanne Mcdonnell [facility] APTT 2022-05-15 16:09:00 Noé, [facility] CBC (HEMOGRAM ONLY) 2022-05-15 05:43:00 Noé, [facility] APTT 2022-05-15 05:43:00 Noé, [facility] ECG 12-LEAD 2022-05-15 01:50:44 Noé, [facility] ECG 12-LEAD 2022-05-15 01:50:44 Unknown, Hl7 [facility] HIGH SENSITIVITY 2022-05-15 01:30:00 [facility] TROPONIN I Center ECG 12-LEAD 2022-05-14 23:03:01 [facility] 2022-05-14 23:03:01 Unknown, Hl7 Doctor [facility] PLATELET COUNT 2022-05-14 22:47:00 Noé, [facility] APTT 2022-05-14 22:47:00 [facility] LIPID PANEL 2022-05-14 22:47:00 [facility] HIGH SENSITIVITY 2022-05-14 22:47:00 [facility] TROPONIN I [place] SARS-COV2/RT-PCR ([facility] & 2022-05-14 21:18:00 Noé, [facility] REF LABS) Center HIGH SENSITIVITY 2022-05-14 18:33:00 Andrew Hernandez [facility] TROPONIN I [facility] ECG 12-LEAD 2022-05-14 18:29:48 [facility]AD 2022-05-14 18:29:48 Unknown, Hl7 Doctor [facility] CBC W/PLT COUNT & AUTO 2022-05-14 16:55:00 [facility] W/PLT COUNT & AUTO 2022-05-14 16:55:00 Andrew Hernandez [facility] DIFFERENTIAL [facility] COMPREHENSIVE METABOLIC 2022-05-14 16:55:00 Andrew Hernandez [facility] PANEL [facility] HIGH SENSITIVITY 2022-05-14 16:55:00 Andrew Hernandez [facility] TROPONIN I [facility] XR CHEST 2 VIEWS 2022-05-14 16:30:00 Andrew Hernandez [facility] ECG 12-LEAD 2022-05-14 16:13:36 Unknown, Hl7 Doctor [facility] ECG 12-LEAD 2022-05-14 16:13:36 Claudia Umanzor [facility] EKG-SCANNED 2022-05-14 00:00:00 Provider, Default [facility] Abdominal aorta [facility] angiogram Abdominal hysterectomy [facility] Angiography of renal [facility] arteries, bilateral Appendectomy [facility] Superior mesenteric [facility] angiography Suspension of bladder [facility] Tonsillectomy [facility] Bladder augmentation [facility] Plan of Care Planned Activity Planned Date Details Comments Source Future Scheduled 2028-04-13 DTAP/TDAP/TD VACCINES ([address] [facility] Test 00:00:00 - Td or Tdap) [code = [facility] DTAP/TDAP/TD VACCINES (2 - Td or Tdap)] Future Scheduled 2028-04-13 DTAP/TDAP/TD VACCINES ([address] [facility] Test 00:00:00 - Td or Tdap) [code = [facility] DTAP/TDAP/TD VACCINES (2 - Td or Tdap)] Future Scheduled 2028-04-13 DTAP/TDAP/TD VACCINES ([address] [facility] Test 00:00:00 - Td or Tdap) [facility]/TDAP/TD VACCINES (2 - Td or Tdap)] Future Scheduled 2028-04-13 DTAP/TDAP/TD VACCINES ([address] [facility] Test 00:00:00 - Td or Tdap) [[facility] DTAP/TDAP/TD VACCINES (2 - Td or [...] (2 - Td or Tdap)] Future Scheduled 2026-03-14 Lipid panel (procedure) [facility] 00:00:00 [code = [id number]] Medical Ce nter Future Scheduled 2026-03-14 Lipid panel (procedure) [facility] Test 00:00:00 [code = 99441150] Medical Ce nter Future Scheduled 2025-05-14 Lipid panel (procedure) [facility] Test 00:00:00 [code = 42195337] Medical Ce nter Future Scheduled 2025-05-14 Lipid panel (procedure) [facility] Test 00:00:00 [code = 88869317] Medical Ce nter Future Scheduled 2025-05-14 Lipid panel (procedure) [facility] Test 00:00:00 [code = 33310678] Medical Ce nter Future Scheduled 2025-05-14 Lipid panel (procedure) [facility] Test 00:00:00 [code = 96153448] Medical Ce nter Future Scheduled 2025-05-14 Lipid panel (procedure) [facility] Test 00:00:00 [code = 53040447] Medical Ce nter Future Scheduled 2025-05-14 Lipid panel (procedure) [facility] Test 00:00:00 [code = 12123939] Medical Ce nter Future Scheduled 2023-06-21 Statin - ASCVD Risk [facility] Test 00:00:00 Prevention [code = [facility] - ASCVD Risk Prevention] Future Scheduled 2023-06-21 Statin - ASCVD Risk [facility] Test 00:00:00 Prevention [code = [facility]ical Center - ASCVD Risk Prevention] Future Scheduled 2023-05-28 IMM Influenza Seasonal H [...] Influenza Seasonal (>/= 19 yrs)] Future Scheduled 2023-04-29 Screening for malignant [facility] 14:09:39 neoplasm of colon Hospital (procedure) [code = 469663706] Future Scheduled 2023-04-29 Screening for malignant [facility] 14:09:39 neoplasm of colon Hospital (procedure) [code = 362851711] Future Scheduled 2023-04-29 Screening for malignant [facility] 14:09:39 neoplasm of colon Hospital (procedure) [code = 101777807] Future Scheduled 2023-04-29 COVID-19 VACCINE (#1) [facility] 14:09:39 [code = COVID-19 VACCINE Hos pital (#1)] Future Scheduled 2023-04-29 Screening for malignant [facility] 14:09:39 neoplasm of cervix Hospital (procedure) [code = 218919527] Future Scheduled 2023-04-29 Screening for malignant [facility] 14:09:39 neoplasm of colon Hospital (procedure) [code = 842398358] Future Scheduled 2023-04-29 Screening for malignant [facility] 14:09:39 neoplasm of colon Hospital (procedure) [code = 301711872] Future Scheduled 2023-04-29 SHINGLES VACCINES (1 of [facility] 14:09:39 2) [code = SHINGLES Hospital VACCINES (1 of 2)] Future Scheduled 2023-04-29 BREAST CANCER SCREENING [facility] 14:09:39 [code = BREAST CANCER Hospit al SCREENING] Future Scheduled 2023-04-29 INFLUENZA VACCINE (#1) [facility] 14:09:39 [code = INFLUENZA VACCINE Ho spital (#1)] Future Scheduled 2023-04-28 INFLUENZA VACCINE (Season [facility] Test 00:00:00 Ended) [code = INFLUENZA Med ical Center VACCINE (Season Ended)] Future Scheduled 2023-04-28 Influenza Vaccine (#1[facility] [code = Influenza Vaccine Me dical Center (#1)] Future Scheduled 2023-04-28 Influenza Vaccine (#1[facility] 00:00[facility]00 [code = Influenza Vaccine Me dical Center (#1)] Future Scheduled 2023-03-29 Screening for malignant [facility] 14:50:14 neoplasm of colon Hospital (procedure) [code = 549432107] Future Scheduled 2023-03-29 Screening for malignant [facility] 14:50:14 neoplasm of colon Hospital (procedure) [code = 619663087] Future Scheduled 2023-03-29 Screening for malignant [facility] 14:50:14 neoplasm of colon Hospital (procedure) [code = 972306483] Future Scheduled 2023-03-29 COVID-19 VACCINE (#1) [facility] 14:50:14 [code = COVID-19 VACCINE Hos pital (#1)] Future Scheduled 2023-03-29 Screening for malignant [facility] 14:50:14 neoplasm of cervix Hospital (procedure) [code = 735562852] Future Scheduled 2023-03-29 Screening for malignant [facility] 14:50:14 neoplasm of colon Hospital (procedure) [code = 952279125] Future Scheduled 2023-03-29 Screening for malignant [facility] 14:50:14 neoplasm of colon Hospital (procedure) [code = 290614874] Future Scheduled 2023-03-29 SHINGLES VACCINES (1 of [facility] 14:50:14 2) [code = SHINGLES Hospital VACCINES (1 of 2)] Future Scheduled 2023-03-29 BREAST CANCER SCREENING [facility] 14:50:14 [code = BREAST CANCER Hospit al SCREENING] Future Scheduled 2023-03-29 INFLUENZA VACCINE [code = [facility] 14:50:14 INFLUENZA VACCINE] Hospital Future Scheduled 2023-03-29 Screening for malignant [facility] 14:50:14 neoplasm of colon Hospital (procedure) [code = 216915318] Future Scheduled 2023-03-29 Screening for malignant [facility] 14:50:14 neoplasm of colon Hospital (procedure) [code = 190062959] Future Scheduled 2023-03-29 Screening for malignant [facility] 14:50:14 neoplasm of colon Hospital (procedure) [code = 787158323] Future Scheduled 2023-03-29 COVID-19 VACCINE (#1) [facility] 14:50:14 [code = COVID-19 VACCINE Hos pital (#1)] Future Scheduled 2023-03-29 Screening for malignant [facility] 14:50:14 neoplasm of cervix Hospital (procedure) [code = 854985226] Future Scheduled 2023-03-29 Screening for malignant [facility] 14:50:14 neoplasm of colon Hospital (procedure) [code = 464343465] Future Scheduled 2023-03-29 Screening for malignant [facility] 14:50:14 neoplasm of colon Hospital (procedure) [code = 460621330] Future Scheduled 2023-03-29 SHINGLES VACCINES (1 of [facility] 14:50:14 2) [code = SHINGLES Hospital VACCINES (1 of 2)] Future Scheduled 2023-03-29 BREAST CANCER SCREENING [facility] 14:50:14 [code = BREAST CANCER Hospit al SCREENING] Future Scheduled 2023-03-29 INFLUENZA VACCINE [code = [facility] 14:50:14 INFLUENZA VACCINE] Hospital Future Scheduled 2023-03-01 Screening for malignant [facility] 14:23:18 neoplasm of colon Hospital (procedure) [code = 706493234] Future Scheduled 2023-03-01 Screening for malignant [facility] 14:23:18 neoplasm of colon Hospital (procedure) [code = 247723560] Future Scheduled 2023-03-01 Screening for malignant [facility] 14:23:18 neoplasm of colon Hospital (procedure) [code = 642292386] Future Scheduled 2023-03-01 COVID-19 VACCINE (#1) [facility] 14:23:18 [code = COVID-19 VACCINE Hos pital (#1)] Future Scheduled 2023-03-01 Screening for malignant [facility] 14:23:18 neoplasm of cervix Hospital (procedure) [code = 294932331] Future Scheduled 2023-03-01 Screening for malignant [facility] 14:23:18 neoplasm of colon Hospital (procedure) [code = 955909593] Future Scheduled 2023-03-01 Screening for malignant [facility] 14:23:18 neoplasm of colon Hospital (procedure) [code = 598643584] Future Scheduled 2023-03-01 SHINGLES VACCINES (1 of [facility] 14:23:18 2) [code = SHINGLES Hospital VACCINES (1 of 2)] Future Scheduled 2023-03-01 BREAST CANCER SCREENING [facility] 14:23:18 [code = BREAST CANCER Hospit al SCREENING] Future Scheduled 2023-03-01 INFLUENZA VACCINE [code = [facility] 14:23:18 INFLUENZA VACCINE] Hospital Future Scheduled 2023-01-17 Hepatitis C screening [facility] 07:58:38 (procedure) [code = Hospital 264412059] Future Scheduled 2023-01-17 Screening for malignant [facility] 07:58:38 neoplasm of cervix Hospital (procedure) [code = 211135349] Future Scheduled 2023-01-17 COLONOSCOPY SCREENING [facility] 07:58:38 [code = COLONOSCOPY Hospital SCREENING] Future Scheduled 2023-01-17 SHINGLES VACCINES (1 of [facility] 07:58:38 2) [code = SHINGLES Hospital VACCINES (1 of 2)] Future Scheduled 2023-01-17 BREAST CANCER SCREENING [facility] 07:58:38 [code = BREAST CANCER Hospit al SCREENING] Future Scheduled 2023-01-17 INFLUENZA VACCINE [code = [facility] 07:58:38 INFLUENZA VACCINE] Hospital Future Scheduled [...] - PCV)] Future Scheduled 2022-08-29 MEDICARE ANNUAL WELLNESS [facility] [...] (#1)] Future Scheduled 2022-08-17 Screening for malignant [facility] 18:22:05 neoplasm of cervix Hospital (procedure) [code = 739096054] Future Scheduled 2022-08-17 COLONOSCOPY SCREENING [facility] 18:22:05 [code = COLONOSCOPY Hospital SCREENING] Future Scheduled 2022-08-17 SHINGLES VACCINES (1 of [facility] 18:22:05 2) [code = SHINGLES Hospital VACCINES (1 of 2)] Future Scheduled 2022-08-17 BREAST CANCER SCREENING [facility] 18:22:05 [code = BREAST CANCER Hospit al SCREENING] Future Scheduled 2022-08-17 INFLUENZA VACCINE [code = [facility] 18:22:05 INFLUENZA VACCINE] Hospital Future Scheduled 2022-08-17 COVID-19 VACCINE (#1) [facility] 18:22:05 [code = COVID-19 VACCINE Hos pital (#1)] Future Scheduled 2022-08-17 Screening for malignant [facility] 18:22:05 neoplasm of cervix Hospital (procedure) [code = 338866350] Future Scheduled 2022-08-17 [facility]ONOSCOPY SCREENING [facility] 18:22:05 [code = COLONOSCOPY Hospital SCREENING] Future Scheduled 2022-08-17 SHINGLES VACCINES (1 of [facility] 18:22:05 2) [code = SHINGLES Hospital VACCINES (1 of 2)] Future Scheduled 2022-08-17 BREAST CANCER SCREENING [facility] 18:22:05 [code = BREAST CANCER Hospit al SCREENING] Future Scheduled 2022-08-17 INFLUENZA VACCINE [code = [facility] 18:22:05 INFLUENZA VACCINE] Hospital Future Scheduled 2022-08-17 COVID-19 VACCINE (#1) [facility] 18:22:05 [code = COVID-19 VACCINE Hos pital (#1)] Future Scheduled 2022-08-17 Screening for malignant [facility] 18:22:05 neoplasm of cervix Hospital (procedure) [code = 447253401] Future Scheduled 2022-08-17 [facility]ONOSCOPY SCREENING [facility] 18:22:05 [code = COLONOSCOPY Hospital SCREENING] Future Scheduled 2022-08-17 SHINGLES VACCINES (1 of [facility] 18:22:05 2) [code = SHINGLES Hospital VACCINES (1 of 2)] Future Scheduled 2022-08-17 BREAST CANCER SCREENING [facility] 18:22:05 [code = BREAST CANCER Hospit al SCREENING] Future Scheduled 2022-08-17 INFLUENZA VACCINE [code = [facility] 18:22:05 INFLUENZA VACCINE] Hospital Future Scheduled [...] Future Scheduled 2022-04-26 HEPATITIS B VACCINES (1 [facility] 16:18:33 of 3 - 3-dose series) Hospit al [code = HEPATITIS B VACCINES (1 of 3 - 3-dose series)] Future Scheduled 2022-04-26 COVID-19 VACCINE (#1) [facility] 16:18:33 [code = COVID-19 VACCINE Hos pital (#1)] Future Scheduled 2022-04-26 Screening for malignant [facility] 16:18:33 neoplasm of cervix Hospital (procedure) [code = 018460334] Future Scheduled 2022-04-26 [facility]OSCOPY [facility]CREENING [facility] 16:18:33 [code = COLONOSCOPY Hospital SCREENING] Future Scheduled 2022-04-26 SHINGLES VACCINES (1 of [facility] 16:18:33 2) [code = SHINGLES Hospital VACCINES (1 of 2)] Future Scheduled 2022-04-26 BREAST CANCER SCREENING [facility] 16:18:33 [code = BREAST CANCER Hospit al SCREENING] Future Scheduled 2022-04-26 INFLUENZA VACCINE [code = [facility] 16:18:33 INFLUENZA VACCINE] Hospital Future Scheduled 2021-11-03 COVID-19 VACCINE (1) [facility] 06:47:29 [code = COVID-19 VACCINE Hos pital (1)] Future Scheduled 2021-11-03 Screening for malignant [facility] 06:47:29 neoplasm of cervix Hospital (procedure) [code = 501629948] Future Scheduled 2021-11-03 COLONOSCOPY SCREENING [facility] 06:47:29 [code = COLONOSCOPY Hospital SCREENING] Future Scheduled 2021-11-03 SHINGLES VACCINES (#1) [facility] 06:47:29 [code = SHINGLES VACCINES Ho spital (#1)] Future Scheduled 2021-11-03 BREAST CANCER SCREENING [facility] 06:47:29 [code = BREAST CANCER Hospit al SCREENING] Future Scheduled 2021-11-03 INFLUENZA VACCINE [code = [facility] 06:47:29 INFLUENZA VACCINE] Hospital Future Scheduled [...] Influenza Seasonal [facility] 00:[facility]:00 Oct to October (>/= 19 yrs) [code [...] October (>/= 19 yrs)] Future Scheduled 2013 SHINGLES VACCINES ([address] [facility] Test 00:00:00 2) [code = SHINGLES Medical Center VACCINES (1 of 2)] Future Scheduled 2013 SHINGLES VACCINES ([address] [facility] Test 00:00:00 2) [code = SHINGLES Medical Center VACCINES (1 of 2)] Future Scheduled 2013 SHINGLES VACCINES ([address] [facility] 00:00:00 [facility] Future Scheduled 2013 SHINGLES VACCINES ([address] [facility] 00:00:00 2) [facility] Future Scheduled 2013 SHINGLES VACCINES ([address] [facility] 00:00:00 2) [facility] Future Scheduled 2013 SHINGLES VACCINES ([address] [facility] Test 00:00:00 2) [facility] Future Scheduled 2013 SHINGLES VACCINES ([address] [facility] Test 00:00:00 2) [facility] Future Scheduled 2013 Screening for malignant [facility] Test 00:00:00 neoplasm of colon (procedure) [code = 407008108] Future Scheduled 2013 Screening for malignant [facility] Test 00:00:00 neoplasm of colon (procedure) [code = 829887904] Future Scheduled 2013 Screening for malignant [facility] Test 00:00:00 neoplasm of colon (procedure) [code = 660139503] Future Scheduled 2013 Screening for malignant [facility] Test 00:00:00 neoplasm of colon (procedure) [code = 425276800] Future Scheduled 2013 Screening for malignant [facility] Test 00:00:00 neoplasm of colon (procedure) [code = 077516980] Future Scheduled 2013 Screening for malignant [facility] Test 00:00:00 neoplasm of colon (procedure) [code = 426792899] Future Scheduled 2013 Screening for malignant [facility] Test 00:00:00 neoplasm of colon (procedure) [code = 395500561] Future Scheduled 2013 Screening for malignant [facility] Test 00:00:00 neoplasm of colon (procedure) [code = 783208024] Future Scheduled 2013 Screening for malignant [facility] Test 00:00:00 neoplasm of colon (procedure) [code = 229674307] Future Scheduled 2013 Screening for malignant [facility] Test 00:00:00 neoplasm of colon (procedure) [code = 535036488] Future Scheduled 2013 Screening for malignant [facility] Test 00:00:00 neoplasm of colon (procedure) [code = 618261834] Future Scheduled 2013 Screening for malignant [facility] Test 00:00:00 neoplasm of colon (procedure) [code = 953750954] Future Scheduled 2013 Screening for malignant [facility] Test 00:00:00 neoplasm of colon (procedure) [code = 738789974] Future Scheduled 2013 SHINGLES VACCINES ([address] [facility] Test 00:00:00 2) [code = [facility] VACCINES (1 of 2)] Future [...] 00:00:00 neoplasm of cervix (procedure) [code = 078312925] Future Scheduled 1993 Screening for malignant [facility] Test 00:00:00 neoplasm of cervix (procedure) [code = 139950754] Future Scheduled 1993 Screening for malignant [facility] Test 00:00:00 neoplasm of cervix (procedure) [code = 418182312] Future Scheduled 1993 Screening for malignant [facility] Test 00:00:00 neoplasm of cervix (procedure) [code = 776060811] Future Scheduled 1993 Screening for malignant [facility] Test 00:00:00 neoplasm of cervix (procedure) [code = 195149004] Future Scheduled 1993 Screening for malignant [facility] Test 00:00:00 neoplasm of cervix (procedure) [code = 776244069] Future Scheduled 1993 Screening for malignant [facility] Test 00:00:00 neoplasm of cervix (procedure) [code = 972391751] Future Scheduled 1993 Screening for malignant [facility] Test 00:00:00 neoplasm of cervix (procedure) [code = 091123974] Future Scheduled 1993 Screening for malignant [facility] Test 00:00:00 neoplasm of cervix (procedure) [code = 520823331] Future Scheduled 1993 Screening for malignant [facility] Test 00:00:00 neoplasm of cervix (procedure) [code = 825025191] Future Scheduled 1993 Screening for malignant [facility] Test 00:00:00 neoplasm of cervix (procedure) [code = 639601034] Future Scheduled 1993 Screening for malignant [facility] Test 00:00:00 neoplasm of cervix (procedure) [code = 952688064] Future Scheduled 1993 Screening for malignant [facility] Test 00:00:00 neoplasm of cervix (procedure) [code = 306026246] Future Scheduled 1993 Screening for malignant [facility] Test 00:00:00 neoplasm of cervix (procedure) [code = 183846083] Future Scheduled 1993 Screening for malignant [facility] Test 00:00:00 neoplasm of cervix (procedure) [code = 588779979] Future Scheduled 1993 Screening for malignant [facility] Test 00:00:00 neoplasm of cervix (procedure) [code = 228543930] Future Scheduled 1993 Screening for malignant [facility] Test 00:00:00 neoplasm of cervix (procedure) [code = 651182949] Future Scheduled 1993 Screening for malignant [facility] Test 00:00:00 neoplasm of cervix (procedure) [code = 124909001] Future Scheduled 1993 Screening for malignant [facility] Test 00:00:00 neoplasm of cervix (procedure) [code = 022742974] Future Scheduled 1993 Screening for malignant [facility] Test 00:00:00 neoplasm of cervix (procedure) [code = 113453127] Future Scheduled 1993 Screening for malignant [facility] Test 00:00:00 neoplasm of cervix (procedure) [code = 895453372] Future Scheduled 1993 Screening for malignant [facility] Test 00:00:00 neoplasm of cervix (procedure) [code = 010049123] Future Scheduled 1993 Screening for malignant [facility] Test 00:00:00 neoplasm of cervix (procedure) [code = 230252066] Future Scheduled 1993 Screening for malignant [facility] Test 00:00:00 neoplasm of cervix (procedure) [code = 694724365] Future Scheduled 1984-02-27 Screening for malignant [facility] Test 00:00:00 neoplasm of cervix Medical C enter (procedure) [code = 967907319] Future Scheduled 1984-02-27 Screening for malignant [facility] Test 00:00:00 neoplasm of cervix Medical C enter (procedure) [code = 525559058] Future Scheduled 1984-02-27 Screening for malignant [facility] Test 00:00:00 neoplasm of cervix Medical C enter (procedure) [code = 952509662] Future Scheduled 1984-02-27 Screening for malignant [facility] Test 00:00:00 neoplasm of cervix Medical C enter (procedure) [code = 803080018] Future Scheduled 1984-02-27 Screening for malignant [facility] Test 00:00:00 neoplasm of cervix Medical C enter (procedure) [code = 170811067] Future Scheduled 1984-02-27 Screening for malignant [facility] Test 00:00:00 neoplasm of cervix Medical C enter (procedure) [code = 283529598] Future Scheduled 1984-02-27 Screening for malignant [facility] Test 00:00:00 neoplasm of cervix Medical C enter (procedure) [code = 248349023] Future Scheduled 1984-02-27 Screening for malignant [facility] Test 00:00:00 neoplasm of cervix (procedure) [code = 940754128] Future Scheduled 1984-02-27 Screening for malignant [facility] Test 00:00:00 neoplasm of cervix (procedure) [code = 187032516] Future Scheduled 1984-02-27 Screening for malignant [facility] Test 00:00:00 neoplasm of cervix Medical C enter (procedure) [code = 679109072] Future Scheduled 1982 DTAP/TDAP/TD VACCINES ([address] [facility] Test 00:00:00 - Tdap) [code = Medical Cent er DTAP/TDAP/TD VACCINES (1 - Tdap)] Future Scheduled 1982 DTAP/TDAP/TD VACCINES ([address] [facility] 00:00:00 - Tdap) [code = Medical Cent er DTAP/TDAP/TD VACCINES (1 - Tdap)] Future Scheduled 1981 HEPATITIS C SCREENING CH [...] HEPATITIS C Medical Center SCREENING] Future Scheduled [address] [facility] 00:[facility]00 virus screening Medical Cent er (procedure) [code = 455460310] Future Scheduled [address] [facility] 00:[facility]:00 virus screening Medical Cent er (procedure) [code = 238705230] Future Scheduled [address] [...] Counseling and Screening (12+)] Future Scheduled 1975 COVID-19 Vaccine (1) [facility] 00:00:00 [code = COVID-19 Vaccine (1)] Future Scheduled [address] [facility] 00:00:00 Counseling and Screening Med ical Center (12+) [code = Tobacco Cessation Counseling and Screening (12+)] Future Scheduled 1969 PNEUMOCOCCAL VACCINE 0-64 CH[facility] [...] YRS (1 - PCV)] Future Scheduled 1969 Pneumococcal Vaccine: [facility]:00 0-64 Years (1 - PCV) Medical Center [code = Pneumococcal Vaccine: 0-64 Years (1 - PCV)] Future Scheduled 1969 Imm Pneumococcal 0-64 (1 [facility] 00:00:00 of 2 - PPSV23) [code = Imm Pneumococcal 0-64 (1 of 2 - PPSV23)] Future Scheduled 1969 Imm Pneumococcal 0-64 (1 [facility] 00:00:00 of 2 - PPSV23) [code = Imm Pneumococcal 0-64 (1 of 2 - PPSV23)] Future Scheduled 1969 Pneumococcal Vaccine: [facility]:00 0-64 Years (1 - PCV) Medical Center [code = Pneumococcal Vaccine: 0-64 Years (1 - PCV)] Future Scheduled 1968-02-27 COVID-19 [...] breast Medical C enter (procedure) [code = 791848268] Future Scheduled 1963 CT Colonography (combo) [facility] 00:00:00 [code = CT Colonography [facility] (combo)] Future Scheduled 1963 Screening for malignant [facility] 00:00:00 neoplasm of colon Medical Ce nter (procedure) [code = 499728628] Future Scheduled 1963 Screening for malignant [facility] 00:00:00 neoplasm of colon Medical Ce nter (procedure) [code = 460010397] Future Scheduled 1963 Screening for malignant [facility] 00:00:00 neoplasm of colon Medical Ce nter (procedure) [code = 386085960] Future Scheduled 1963 Screening for malignant [facility] 00:00:00 neoplasm of colon Medical Ce nter (procedure) [code = 833521594] Future Scheduled 1963 Sigmoidoscopy [code = [facility] Sigmoidoscopy] Medical Cente r Future Scheduled 1963 Screening for malignant [facility] 00:00:00 neoplasm of breast Medical C enter (procedure) [code = 643544959] Future Scheduled 1963 CT Colonography (combo) [facility] 00:00:00 [code = CT Colonography [facility] (combo)] Future Scheduled 1963 Screening for malignant [facility] 00:00:00 neoplasm of colon Medical Ce nter (procedure) [code = 237452730] Future Scheduled 1963 Screening for malignant [facility] 00:00:00 neoplasm of colon Medical Ce nter (procedure) [code = 323954748] Future Scheduled 1963 Screening for malignant [facility] 00:00:00 neoplasm of colon Medical Ce nter (procedure) [code = 777775687] Future Scheduled 1963 Screening for malignant [facility] 00:00:00 neoplasm of colon Medical Ce nter (procedure) [code = 133548788] Future Scheduled 1963 Sigmoidoscopy [code = [facility] S[facility]oidoscopy] Medical Cente r Future Scheduled 1963 Screening for malignant [facility] 00:00:00 neoplasm of breast Medical C enter (procedure) [code = 687870996] Future Scheduled 1963 CT Colonography (combo) [facility] 00:00:00 [code = CT Colonography [facility] (combo)] Future Scheduled 1963 Screening for malignant [facility] 00:00:00 neoplasm of colon Medical Ce nter (procedure) [code = 515744340] Future Scheduled 1963 Screening for malignant [facility] 00:00:00 neoplasm of colon Medical Ce nter (procedure) [code = 441143473] Future Scheduled 1963 Screening for malignant [facility] 00:00:00 neoplasm of colon Medical Ce nter (procedure) [code = 653510286] Future Scheduled 1963 Screening for malignant [facility] 00:00:00 neoplasm of colon Medical Ce nter (procedure) [code = 845670169] Future Scheduled 1963 Sigmoidoscopy [code = [facility] Sigmoidoscopy] Medical Cente r Future Scheduled 1963 Screening for malignant [facility] 00:00:00 neoplasm of breast Medical C enter (procedure) [code = 900220134] Future Scheduled 1963 CT Colonography (combo) [facility] 00:00:00 [code = CT Colonography [facility] (combo)] Future Scheduled 1963 Screening for malignant [facility] 00:00:00 neoplasm of colon Medical Ce nter (procedure) [code = 820614297] Future Scheduled 1963 Screening for malignant [facility] 00:00:00 neoplasm of colon Medical Ce nter (procedure) [code = 274223606] Future Scheduled 1963 Screening for malignant [facility] 00:00:00 neoplasm of colon Medical Ce nter (procedure) [code = 626526888] Future Scheduled 1963 Screening for malignant [facility] 00:00:00 neoplasm of colon Medical Ce nter (procedure) [code = 884333662] Future Scheduled 1963 Sigmoidoscopy [code = [facility] S[facility]oidoscopy] Medical Cente r Future Scheduled 1963 Screening for malignant [facility] 00:00:00 neoplasm of breast Medical C enter (procedure) [code = 577080820] Future Scheduled 1963 CT Colonography (combo) [facility] 00:00:00 [code = CT Colonography [facility] (combo)] Future Scheduled 1963 Screening for malignant [facility] 00:00:00 neoplasm of colon Medical Ce nter (procedure) [code = 803418291] Future Scheduled 1963 Screening for malignant [facility] 00:00:00 neoplasm of colon Medical Ce nter (procedure) [code = 726167005] Future Scheduled 1963 Screening for malignant [facility] 00:00:00 neoplasm of colon Medical Ce nter (procedure) [code = 168993496] Future Scheduled 1963 Screening for malignant [facility] 00:00:00 neoplasm of colon Medical Ce nter (procedure) [code = 486326396] Future Scheduled 1963 Sigmoidoscopy [code = [facility] S[facility]oidoscopy] Medical Cente r Future Scheduled 1963 Screening for malignant [facility] 00:00:00 neoplasm of breast Medical C enter (procedure) [code = 922177898] Future Scheduled 1963 CT Colonography (combo) [facility] 00:00:00 [code = CT Colonography [facility] (combo)] Future Scheduled 1963 Screening for malignant [facility] 00:00:00 neoplasm of colon Medical Ce nter (procedure) [code = 062915447] Future Scheduled 1963 Screening for malignant [facility] 00:00:00 neoplasm of colon Medical Ce nter (procedure) [code = 271981951] Future Scheduled 1963 Screening for malignant [facility] 00:00:00 neoplasm of colon Medical Ce nter (procedure) [code = 263492824] Future Scheduled 1963 Screening for malignant [facility] 00:00:00 neoplasm of colon Medical Ce nter (procedure) [code = 645907027] Future Scheduled 1963 Sigmoidoscopy [code = [facility] S[facility]oidoscopy] Medical Cente r Future Scheduled 1963 Screening for malignant [facility] 00:00:00 neoplasm of breast Medical C enter (procedure) [code = 963388588] Future Scheduled 1963 CT Colonography (combo) [facility] 00:00:00 [code = CT Colonography [facility] (combo)] Future Scheduled 1963 Screening for malignant [facility] 00:00:00 neoplasm of colon Medical Ce nter (procedure) [code = 698804030] Future Scheduled 1963 Screening for malignant [facility] 00:00:00 neoplasm of colon Medical Ce nter (procedure) [code = 317759947] Future Scheduled 1963 Screening for malignant [facility] 00:00:00 neoplasm of colon Medical Ce nter (procedure) [code = 777454328] Future Scheduled 1963 Screening for malignant [facility] 00:00:00 neoplasm of colon Medical Ce nter (procedure) [code = 664767176] Future Scheduled 1963 Sigmoidoscopy [code = [facility] 00:[facility] S[facility]oidoscopy] Medical Cente r Future Scheduled 1963 Fluoride Varnish [code = [facility] [employer] [facility] 00:00:00 Fluoride Varnish] Future Scheduled 1963 Screening for malignant [facility] 00:00:00 neoplasm of breast Medical C enter (procedure) [code = 278884547] Future Scheduled 1963 CT Colonography (combo) [facility] 00:00:00 [code = CT Colonography [facility] (combo)] Future Scheduled 1963 Screening for malignant [facility] 00:00:00 neoplasm of colon Medical Ce nter (procedure) [code = 600165161] Future Scheduled 1963 Screening for malignant [facility] 00:00:00 neoplasm of colon Medical Ce nter (procedure) [code = 220601603] Future Scheduled 1963 Screening for malignant [facility] 00:00:00 neoplasm of colon Medical Ce nter (procedure) [code = 219799229] Future Scheduled 1963 Screening for malignant [facility] 00:00:00 neoplasm of colon Medical Ce nter (procedure) [code = 013821014] Future Scheduled 1963 Sigmoidoscopy [code [facility]] Medical Cente r Future Scheduled IMM Influenza Seasonal [facility] May to October (>/= 19 yrs) [code = IMM Influenza Seasonal May to October (>/= 19 yrs)] Future Scheduled IMM Influenza Seasonal [facility] May to October (>/= 19 yrs) [code = IMM Influenza Seasonal May to October (>/= 19 yrs)] Future Scheduled IMM Influenza Seasonal [facility] May to October (>/= 19 yrs) [code = IMM Influenza Seasonal May to October (>/= 19 yrs)] Future Scheduled Screening for malignant [facility] neoplasm of colon (procedure) [code = 989223547] Future Scheduled Colorectal Cancer Scrn [facility] Annual (FIT/FOBT) Age 50 to 75 [code = Colorectal Cancer Scrn Annual (FIT/FOBT) Age 50 to 75] Future Scheduled Breast Cancer Scrn [facility] (Yearly) [code = Breast Cancer Scrn (Yearly)] Future Scheduled Screening for malignant [facility] neoplasm of cervix (procedure) [code = 885096883] Future Scheduled Screening for malignant [facility] neoplasm of cervix (procedure) [code = 738935520] Future Scheduled Cervical Cancer Scrn (3 [facility] Yrs) [code = Cervical Cancer Scrn (3 Yrs)] Future Scheduled COVID-19 Vaccine (1) [facility] [code = COVID-19 Vaccine (1)] Encounters Start End Encounter Admission Attending Care Care Encounter Source Date/Time Date/Time Type Type Clinicians Facility Department ID 2023-12-07 2023-12-07 Outpatient R SAURABH CARVAJAL [facility] B [id number] [facility] 09:30:00 09:30:00 SAURABH CARVAJAL [facility] 2023-08-10 2023-08-10 Outpatient KEVIN KIRBY [id number] SLE 00:00:00 00:00:00 JAE 2023-08-10 2023-08-10 Outpatient [facility] [id number] [facility] 00:00:00 00:00:00 2023-05-11 2023-05-[address] [id number] [facility] 13:15:00 13:30:00 [facility] 2023-05-11 2023-05-11 Outpatient ARLYN KIRBY SLE [id number] [facility] 11:54:54 11:54:54 [place] 2023-04-17 2023-04-17 Outpatient ARLYN KIRBY SLE [id number] [facility] 00:00:00 00:00:00 [place] 2023-03-24 2023-03-24 [facility] [id number] 00:[facility] 00[facility]00 [facility] 2023-03-24 2023-03-24 [facility] [id number] 00:[facility]00 00:00:00 [facility] 2023-03-14 2023-03-14 Office [place], [facility] [id number] 13:30:00 13:45:00 [facility] 2023-03-14 2023-03-14 Office VINEET Poole, [facility] [id number] 13:30:00 13:45:00 [facility] 2023-03-14 2023-03-14 Outpatient ARLYN KIRBY SLE [id number] SLE 11:59:11 11:59:11 [place] 2023-03-14 2023-03-14 Orders Chadd Ramachandran [facility] [id number] 00:00:00 00:00:00 Only [facility] 2023-03-14 2023-03-14 Orders Chadd Ramachandran [facility] [id number] 00:00:00 00:00:00 Only [facility] 2023-01-31 2023-01-31 Telephone Riley [facility] [id number] 00:00:00 00:00:00 [facility] 2023-01-31 2023-01-31 [facility] [id number] 00:00[facility]00 00:00:00 [facility] 2023-01-25 2023-01-25 Telephone Riley [facility] [id number] 00:00:00 00:00:00 [facility] 2023-01-25 2023-01-25 Telephone Riley [facility] [id number] [facility] 00:[facility]00 00:00:00 [facility] 2023-01-16 2023-01-16 Travel 1.2.840.1 1.2.280.345 [id number] Methodi 00:00:00 00:00:[address] 3.430.2.7 0.2.7.3.698 Ho spita .3.964237 084.8 l .8 2023-01-16 2023-01-16 Transcribe Boris, 1.2.840.1 [id number] Methodi 00:00:00 00:00:00 Orders Shawna 44325.1.[address] 3.430.2.7 Hospit a .3.488080 l .8 2023-01-16 2023-01-16 Travel 1.2.840.1 1.2.235.341 [id number] Methodi 00:00:00 00:00:[address] 3.430.2.7 0.2.7.3.698 Ho spita .3.644226 084.8 l .8 2023-01-16 2023-01-16 Transcribe Boris, 1.2.840.1 [id number] Methodi 00:00:00 00:00:00 Orders Shawna 88407.1.[address] 3.430.2.7 Hospit a .3.875041 l .8 2023-01-10 2023-01-10 Alyssa Poole [facility] [id number] 14:45:00 15:00:00 [facility] 2023-01-10 2023-01-10 Office VINEET Poole [facility] [id number] 14:45:00 15:00:00 [facility] 2023-01-10 2023-01-10 Outpatient KEVIN KIRBY SLE [id number] SLE 13:49:37 13:49:37 [place] 2023-01-03 2023-01-03 Outpatient ARLYN KIRBY SLE [id number] SLE 00:00:00 00:00:00 [place] 2022-12-19 2022-12-19 Outpatient KEVIN KIRBY SLE [id number] SLE 00:00:00 00:00:00 [place] 2022-12-16 2022-12-16 [facility] [id number] 00:00:00 00:00:00 Only [facility] 2022-12-16 2022-12-16 [facility] [id number] 00:00:00 00:00:00 Only [facility] 2022-12-14 2022-12-14 Telephone [facility] 1.2.840.11 [id number] [facility] 00:00:00 00:00:00 Saurabh ORANTES 350.1.13.10 it y of WOMEN'S 4.2.7.2.686 [facility] [id number] [address] 2022-12-06 2022-12-06 Outpatient R SAURABH CARVAJAL [facility] B [id number] [facility] 13:00:00 13:52:57 SAURABH CARVAJAL [facility] 2022-12-06 2022-12-06 Office [facility] 1.2.840.114 [id number] [facility] 13:00:00 13:52:57 Visit Saurabh ORANTES 350.1.13.10 it y of WOMEN'S 4.2.7.2.686 [facility] [id number] [address] 2022-12-06 2022-12-06 Orders Doctor LUCIANO 1.2.840.114 [id number] Univers 00:00:00 00:00:00 Only Unassigned, JUANCARLOS 350.1.13.10 ity of [facility] 4.2.7.2.686 [place] [id number] [facility] [address] 2022-11-30 2022-11-30 Outpatient R SAURABH CARVAJAL [facility] B [id number] Univers 10:30:00 10:30:00 SAURABH CARVAJAL dori [facility] 2022-11-30 2022-11-30 Outpatient R SAURABH CARVAJAL [facility] [id number] Univers 10:30:00 10:30:00 SAURABH CARVAJAL [facility] 2022-10-04 2022-10-04 Telephone Ethan [facility] [id number] 00:00:00 00:00:00 [facility] 2022-10-04 2022-10-04 Telephone Ethan [facility] [id number] 00:00:00 00:00:00 [facility] 2022-09-13 2022-09-13 Office Zulema [facility] [id number] 13:30:00 13:45:00 [facility] 2022-09-13 2022-09-13 Office VINEET Poole [facility] [id number] 13:30:00 13:45:00 [facility] 2022-09-13 2022-09-13 Outpatient VINEET POOLE [facility] SLE [id number] SLE 11:41:47 11:41:47 JAE 2022-09-02 2022-09-02 Kacy Lin [facility] [id number] 00:00:00 00:00:00 cedric [facility] 2022-09-02 2022-09-02 Kacy Lin [facility] [id number] 00:00:00 00:00:00 ion Qiana Edwards Janine [facility] 2022-07-18 2022-07-18 Outpatient EL SEALS, [facility] SLE [id number] [facility] 14:13:32 23:59:00 [facility] 2022-07-18 2022-07-18 Hospital [facility], [facility] [id number] 14:00:00 23:59:00 Encounter [facility] 2022-07-18 2022-07-18 Hospital [place], [facility] [id number] 14:00:00 23:59:00 Encounter [facility] 2022-07-18 2022-07-18 Outpatient EL SEALS, [facility] SLE [id number] [facility] 14:13:03 13:59:00 [facility] 2022-07-18 2022-07-18 Hospital [facility], [facility] [id number] 12:30:00 13:59:00 Encounter [facility] 2022-07-18 2022-07-18 Hospital [facility], [facility] [id number] 12:30:00 13:59:00 Encounter [facility] 2022-07-18 2022-07-18 Hospital [facility], [facility] [id number] 10:02:46 12:29:00 Encounter [facility] 2022-07-18 2022-07-18 Hospital [place]als, [facility] [id number] 10:02:46 12:29:00 Encounter [facility] 2022-07-18 2022-07-18 Outpatient EL SEALS, [facility]H SLEH [id number] [facility] 10:02:45 12:29:00 [facility] 2022-07-06 2022-07-06 Documentat Paxton [facility] [id number] 00:00:00 00:00:00 cedric Bere [facility] 2022-07-06 2022-07-06 Documentat [facility] [id number] 00:00:00 00:00:00 cedric Bere [facility] 2022-06-24 2022-06-24 Documentat Kit, [facility] [id number] 00:00:00 00:00:00 ecdric [facility] 2022-06-24 2022-06-24 Documentat Kti, [facility] [id number] 00:00:00 00:00:00 cedric [facility] 2022-06-23 2022-06-23 Documentat Riley [facility] [id number] 00:00:00 00:00:00 [facility] 2022-06-23 2022-06-23 [facility] [id number] 00:00:00 00:00:00 [facility] 2022-06-21 2022-06-21 [facility] [id number] 15:15:00 15:45:00 [facility] 2022-06-21 2022-06-21 Office VINEET Poole [facility] [id number] 15:15:00 15:45:00 [facility] 2022-06-21 2022-06-21 Outpatient VINEET POOLE [facility] SLE [id number] SLE 14:20:07 14:20:07 [place] 2022-06-21 2022-06-21 Orders [facility] [id number] 00:00:00 00:00:00 Only [facility] 2022-06-21 2022-06-21 Orders [facility] [id number] 00:00:00 00:00:00 [facility] 2022-06-20 2022-06-20 Office Zulema [facility] [id number] 14:45:00 15:15:00 [facility] 2022-06-20 2022-06-20 Office Zulema [facility] [id number] 14:45:00 15:15:00 [facility] 2022-06-20 2022-06-20 Outpatient ZULEMA [facility] [id number] [facility] 00:00:00 00:00:00 [place] 2022-06-16 2022-06-16 Outpatient R SAURABH CARVAJAL [facility] B [id number] [facility] 00:00:00 00:00:00 WEIWILLIAMTYSHAWN [facility] 2022-06-06 2022-06-06 Outpatient R MIKALSAURABH LEDESMA [facility] B [id number] [facility] 00:00:00 00:00:00 MIKALSAURABH LEDESMA [facility] 2022-05-20 2022-05-20 Concepcion Lin [facility] [id number] 00:00:00 00:00:00 [facility]22[facility]20 [facility] [id number] 00:00:00 00:00:00 [facility] 2022-05-20 2022-05-20 Concepcion Lin [facility] [id number] 00:00:00 00:00:00 Only Qiana [facility] 2022-05-20 2022-05-20 [facility] [id number] 00:00[facility]00 00[facility]00[facility]00 [facility] 2022-05-14 2022-05-16 Inpatient ER KEVIN MCDONNELL Emergency [id number] SLE 16:03:00 19:02:00 LEANNE 2022-05-14 2022-05-16 [facility] Harley Montesinos [facility] [id number] 16:03:00 19:02:00 Encounter [place], [facility] 2022-05-14 2022-05-16 Hospital Harley Barragan [facility] [id number] 16:03:00 19:02:00 Encounter Oly [facility] 2022-05-15 2022-05-15 Travel [facility] [id number] [facility] 00:00:00 00:00:00 [facility] 2022-05-15 2022-05-15 Travel [facility] [id number] [facility] 00:00:00 00:00:00 [facility] 2022-05-14 2022-05-14 Orders [facility] [id number] 00:00:00 00:00:00 Only [facility] 2021-12-08 2021-12-08 Case Wei [facility] 1.2.840.114 [id number] Univers 00:00:00 00:00:00 Management Saurabh ORANTES 350.1.13.10 ity of WOMEN'S 4.2.7.2.686 [facility] s HEALTH [id number] [address] 2021-12-07 2021-12-07 Performance Instructor 2, Adc Lab [facility] 1.2.840.114 [id number] Univers 11:15:00 11:30:00 Visit Eddie Austin 350.1.13.10 ity [facility] [place] [id number] [facility] 2021-12-07 2021-12-07 Outpatient R EDDIE AUSTIN [facility] [id number] [facility] 11:15:00 11:15:00 ity of [facility] 2021-11-30 2021-11-30 Office Saurabh Carvajal [facility] 1.2. 840.114 [id number] [facility] 09:00:00 10:42:48 Visit Eddie Austin 350.1.13.10 [place] [id number] [address] 2021-11-30 2021-11-30 Outpatient EDDIE KIRKPATRICK [facility] [id number] Univers 09:00:00 10:42:48 ity [facility] 2021-11-30 2021-11-30 Outpatient EDDIE KIRKPATRICK [facility] [id number] Univers 09:00:00 09:00:00 ity [facility] 2021-11-24 2021-11-24 Pre Visit FANTASMA CaoFrancine 1.2.156.508 [id number] Univers 00:00:00 00:00:00 Outreach Maya CORAD[place] 350.1.13.10 [id number] [address] 2021-08-05 2021-08-05 Outpatient EDDIE KIRKPATRICK [facility] [id number] Univers 15:30:00 15:30:00 ity [facility] 2021-08-02 2021-08-02 Pre Visit TERESA Cao 1.2.376.755 [id number] Univers 00:00:00 00:00:00 Outreach Maya CORADO 350.1.13.10 [facility] [id number] [address] 2021-04-22 2021-04-22 Letter LUCIANO Patel 1.2.840.114 [id number] Univers 00:00:00 00:00:00 (Out) Fannie Woodson JUANCARLOS 350.1.13.10 i ty of HOSPITAL 4.2.7.2.686 [place] [id number] [address] 2021-04-21 2021-04-21 Laboratory Only, Ang Db Test [facility] 1.2.8 40.114 [id number] Univers 16:03:49 16:18:49 Only Vielka Britton [facility] 350.1.13.10 ity of [place] 4.2.7.2.686 [place] Delmar?Blea [id number] [address] Medical Office Building 2021-04-21 2021-04-21 Outpatient Brandon BRITTON [facility] [id number] Univers 15:45:00 15:45:00 VIELKA ity [facility] 2021-04-21 2021-04-21 Letter Doctor LUCIANO 1.2.840.114 [id number] Univers 00:00:00 00:00:00 (Out) Unassigned, JUANCARLOS 350.1.13.10 ity of [place] [facility] 4.2.7.2.686 [place] as [phone] [facility] 044 Branch 2021-04-21 2021-04-21 Letter Doctor LUCIANO 1.2.840.114 [id number] Univers 00:00:00 00:00:00 (Out) Unassigned, JUANCARLOS 350.1.13.10 ity of [place] [facility] 4.2.7.2.686 [place] as [phone] [facility] 044 Branch 2021-04-21 2021-04-21 Orders Doctor LUCIANO 1.2.840.114 [id number] Univers 00:00:00 00:00:00 Only Unassigned, JUANCARLOS 350.1.13.10 ity of [place] [facility] 4.2.7.2.686 [place] as [phone] [facility] 009 Branch 2021 2021-02-27 Inpatient ISAIAS Carcamo, [facility] MEDI.01 [id number] [facility] 15:47:00 11:36:[address] 2021-02-25 2021-02-25 Outpatient BRENDA Antunez LABO [id number] [facility] 18:45:00 18:45:00 Jaiden 73 [facility] 2020-12-28 2020-12-28 Outpatient MHIE MHIE [id number] [facility] 15:45:00 15:45:00 00 [facility] 2020-12-28 2020-12-28 Outpatient MHIE MHIE [id number] [place] 15:45:00 15:45:00 00 jodie Agrawal 2020-07-02 2020-07-02 Emergency Singer [facility] [id number] [id number] 14:38:00 16:16:00 Elier Chris 350.1.13.10 [place] 4.2.7.2.686 [place] [id number] 084 2020-07-02 2020-07-02 Emergency X [facility] ERT [id number] Univers 14:28:00 14:28:00 [facility] 2020-04-29 2020-04-29 [facility] 1.2.617.096 [id number] 12:18:00 15:08:00 Eddie Chris 350.1.13.10 [place] 4.2.7.2.686 [place] [id number] 084 2020-04-29 2020-04-29 Emergency [facility] ERT [id number] Univers 12:07:00 12:07:00 EDDIE dori [facility] 2020-03-17 2020-03-17 Emergency [facility] 1.2.099.921 [id number] 11:37:56 13:51:00 Elier Chris 350.1.13.10 [place] 4.2.7.2.686 [place] [address] [id number] 084 2020-03-17 2020-03-17 Emergency X [facility] ERT [id number] Univers 11:26:00 11:26:00 [facility] 2020-03-17 2020-03-17 Orders Doctor LUCIANO 1.2.840.114 [id number] 00:00:00 00:00:00 Only Unassigned, JUANCARLOS 350.1.13.10 [place] [address].2.7.2.686 [id number] 009 2019-05-29 2019-05-29 Emergency [facility] ERT [id number] Univers 06:47:32 09:46:00 MATEUS [facility] 2018-12-10 2018-12-10 Office nullFlavo Family [id number] Memoria 21:03:58 22:56:31 Visit r Andrew Andrews Same Day 2018-12-10 2018-12-10 Emergency nullFlavo Emergency [id number] Memoria 16:20:39 17:56:00 r Sachin feliciano (6520) ELIEZER Jenkins 2018-12-10 2018-12-10 Outpatient [facility] [id number] [place] 16:03:58 16:03:58 Health 2018-12-10 2018-12-10 Emergency [facility] MED [id number] Magdiel 11:20:39 11:20:39 Health 2017-09-01 2017-09-01 [facility] [id number] [place] 10:29:00 10:29:00 Health 2015-02-04 2015-02-05 Outpt Diag nullFlavo [facility] [id number] Memoria 13:00:00 04:59:00 Services r Outpatient 00 l Imaging Nghia Morin 2015-02-04 2015-02-05 Outpt Diag nullFlavo [facility] [id number] Memoria 13:00:00 04:59:00 Services r Outpatient 00 l Imaging Nghia Morin 2015-02-04 2015-02-04 Outpatient Ashish, 2.16.840. 2.16.840.1. [id number] 08:00:00 23:59:00 Julian Zheng 1.840883. [id number] 3.615.0.1 5.0.538 09 8539-05-11 2015-01-06 [id number] Memoria 15:04:00 04:59:00 r Kamas 31 [facility] 2015-01-05 2015-01-06 Outpatient [place] [id number] Memoria 15:04:00 04:59:00 r Kamas 31 [facility] 2015-01-05 2015-01-05 Outpatient Silvano-Fu 2.16.840. 2.16.840. 1. [id number] 10:04:00 23:59:00 jono, 1.717197. 569156.3.61 31 Julita Sales 3.615.0.1 5.0.486 49 6039-09-23 2014-05-20 Bedded [facility] [id number] Memoria 11:14:00 19:30:00 Outpatient r Kamas 00 [facility] 2014-05-20 2014-05-20 Bedded [facility] [id number] Memoria 11:14:00 19:30:00 Outpatient r Kamas 00 [facility] 2014-05-20 2014-05-20 Outpatient Tito 2.16.840. 2.16.840.1. [id number] 06:14:00 14:30:00 Larry Woodson [id number]. [id number] 00 3.615.0.1 5.0.224 65 5335-05-05 2014-01-03 Inpatient [facility] [id number] Memoria 07:50:00 03:00:00 r Kamas 25 [facility] 2013-12-30 2014-01-03 Inpatient [facility] [id number] Memoria 07:50:00 03:00:00 r Kamas 25 [facility] 2013-12-30 2014-01-02 Outpatient Terminella, 2.16.840. 2.16.840. 1. [id number] 02:50:00 22:00:00 Rivera 1.468145. [id number] 25 3.615.0.1 5.0.101 01 Results Test Description Test Time Test Comments Results Result Comments Source BASIC METABOLIC PANEL 2023-05-11 12:58:58 Test Item Value Reference Range Interpretation Comme nts SODIUM (BEAKER) (test 138 meq/L 136-145 code = 381) POTASSIUM (BEAKER) 4.1 meq/L 3.5-5.1 (test code = 379) CHLORIDE (BEAKER) (test 101 meq/L 98-107 code = 382) CO2 (BEAKER) (test code 31 meq/L 22-29 H = 355) BLOOD UREA NITROGEN 9 mg/dL 7-21 (BEAKER) (test code = 354) CREATININE (BEAKER) 0.75 mg/dL 0.57-1.25 (test code = 358) GLUCOSE RANDOM (BEAKER) 85 mg/dL 70-105 (test code = 652) CALCIUM (BEAKER) (test 9.3 mg/dL 8.4-10.2 code = 697) EGFR (BEAKER) (test 91 mL/min/1.73 sq In terpretation of eGFR values code = 1092) m Stage Descripti on Result G1 Normal or high >=90 G2 Mildly decreased 60-8 9 G3a Mildly to moderately 45-5 9 G3b [...] s not applicable for dialysis estefanía santos [employer] Treater ID - ADMINCBC W/PLT COUNT & AUTO [id number] 12:38:19 Test Item Value Reference Range Interpretation Comments WHITE BLOOD CELL COUNT (BEAKER) 8.0 K/ L 3.5-10.5 (test code = 775) RED BLOOD CELL COUNT (BEAKER) 4.36 M/ L 3.93-5.22 (test code = 761) HEMOGLOBIN (BEAKER) (test code = 13.3 GM/DL 11.2-15.7 410) HEMATOCRIT (BEAKER) (test code = 41.9 % 34.1-44.9 411) MEAN CORPUSCULAR VOLUME (BEAKER) 96 fL 79-95 H (test code = 753) MEAN CORPUSCULAR HEMOGLOBIN 30.5 pg 25.6-32.2 (BEAKER) (test code = 751) MEAN CORPUSCULAR HEMOGLOBIN CONC 31.7 GM/DL 32.2-35.5 L (BEAKER) (test code = 752) RED CELL DISTRIBUTION WIDTH 13.4 % 11.7-14.4 (BEAKER) (test code = 412) PLATELET COUNT (BEAKER) (test 162 K/CU MM 150-450 code = 756) MEAN PLATELET VOLUME (BEAKER) 10.1 fL 9.4-12.3 (test code = 754) NUCLEATED RED BLOOD CELLS 0 /100 WBC 0-0 (BEAKER) (test code = 413) NEUTROPHILS RELATIVE PERCENT 56 % (BEAKER) (test code = 429) LYMPHOCYTES RELATIVE PERCENT 36 % (BEAKER) (test code = 430) MONOCYTES RELATIVE PERCENT 7 % (BEAKER) (test code = 431) EOSINOPHILS RELATIVE PERCENT 1 % (BEAKER) (test code = 432) BASOPHILS RELATIVE PERCENT 0 % (BEAKER) (test code = 437) NEUTROPHILS ABSOLUTE COUNT 4.46 K/ L 1.56-6.13 (BEAKER) (test code = 670) LYMPHOCYTES ABSOLUTE COUNT 2.88 K/ L 1.18-3.74 (BEAKER) (test code = 414) MONOCYTES ABSOLUTE COUNT (BEAKER) 0.52 K/ L 0.24-0.36 H (test code = 415) EOSINOPHILS ABSOLUTE COUNT 0.08 K/ L 0.04-0.36 (BEAKER) (test code = 416) BASOPHILS ABSOLUTE COUNT (BEAKER) 0.01 K/ L 0.01-0.08 (test code = 417) IMMATURE GRANULOCYTES-RELATIVE 0.50 % 0.00-1.00 PERCENT (BEAKER) (test code = 2801) BASIC METABOLIC [id number] 13:07:14 Test Item Value Reference Range Interpretation Comments SODIUM (BEAKER) 139 meq/L 136-145 (test code = 381) POTASSIUM 4.6 meq/L 3.5-5.1 Specimen modera tely (BEAKER) (test hemolyzed code = 379) CHLORIDE (BEAKER) 103 meq/L 98-107 (test code = 382) CO2 (BEAKER) 32 meq/L 22-29 H (test code = 355) BLOOD UREA 7 mg/dL 7-21 NITROGEN (BEAKER) (test code = 354) CREATININE 0.75 mg/dL 0.57-1.25 Specimen modera tely (BEAKER) (test hemolyzed code = 358) GLUCOSE RANDOM 79 mg/dL 70-105 (BEAKER) (test code = 652) CALCIUM (BEAKER) 9.3 mg/dL 8.4-10.2 (test code = 697) EGFR (BEAKER) 91 Interpretatio n of eGFR (test code = [...] not appl icable for dialysis patien ts [employer] Treater ID - MMLIPID [id number] 13:07:14 Test Item Value Reference Range Interpretation [...] Borderline 130-159 High 160-189 Very High >=190 [employer] Treater ID - MMCBC W/PLT COUNT & AUTO [id number] 12:48:07 Test Item Value Reference Range Interpretation [...] (BEAKER) (test code = 2801) BASIC METABOLIC [id number] 14:39:36 Test Item Value Reference Range Interpretation [...] not appl icable for dialysis patien ts [employer] Treater ID - FSECBC W/PLT COUNT & AUTO [id number] 14:24:12 Test Item Value Reference Range Interpretation [...] (BEAKER) (test code = 2801) COMPREHENSIVE METABOLIC [id number] 12:53:08 Test Item Value Reference Range Interpretation [...] not appl icable for dialysis patien ts [employer] Treater ID - MARCOCBC W/PLT COUNT & AUTO [id number] 12:38:19 Test Item Value Reference Range Interpretation [...] = 2801) CT, HEART CORONARY YESY, WO [id number] 10:02:00sh[facility]ila [facility] ppo-oon for dr Shilisted Reason for Exam - Click Yes and Enter Reason Below->No [facility] 1965 Sex: FAddendum BeginsREPORT STATUS:A I concur with the nonvascular findings. Signed: Tim Seay MDReport Verified Date/Time: 07/29/2022 10:02:26 Reading Location: [facility] Radiology ReadingRoomAddendum EndsFINAL REPORT CT scan for [...] performed. Coronary calcification was analyzed using the [employer] system software. These are the results of [...] An addendum will be dictated by the Assistant Librarian Radiologist regarding the nonvascular findings. THE REPORT WILL ONLY BE CONSIDERED COMPLETE AFTER THE ADDENDUM HAS BEEN DICTATED. Signed: Zenon Jean-Pierre MDReport Verified Date/Ti me: 07/23/2022 08:08:03 2D Echo W/Doppler(CW/PW/Color)2022-07-18 18:01:25Ejection [facility]SLEH [facility]CW/PW/Color)2022-07-18 18:01:25Ejection FractionSLEH ECHO [facility] W/Doppler(CW/PW/Color) 2022-07-18 18:01:25Ejection FractionSLEH ECHO [facility] W/Doppler(CW/PW/Color)2022-07-18 18:01:25Ejection FractionSLEH ECHO [facility]ARTLAB [facility] Echo W/Doppler(CW/PW/Color)2022-07-18 18:01:25Ejection FractionSLEH ECHO [facility] W/Doppler(CW/PW/Color) 2022-07-18 18:01:25Ejection FractionSLEH ECHO [facility]ARTLAB [facility] Echo W/Doppler(CW/PW/Color)2022-07-18 18:01:25Ejection FractionSLEH ECHO [facility] W/Doppler(CW/PW/Color)2022-07-18 18:01:25Ejection FractionSLE ECHO [facility] PANEL 2022-06-21 15:38:11 Test Item Value [...] not appl icable for dialysis patien ts [employer] Treater ID - BSCBC W/PLT COUNT & AUTO [id number] 15:15:49 Test Item Value Reference Range Interpretation [...] code = 2801) MYOCARD IMAGING, MULTI, PHARM, [id number] 16:45:00Unlisted Reason for Exam - Click Yes and Enter Reason Below->No [facility] 1965 Sex: FFINAL REPORT PROCEDURE: Rest/Stress MYOCARDIAL PERFUSION SPECT with regadenoson\\XA9\\ CPT CODE: 33553 INDICATION: Chest pain R07.9 HISTORY: Cardiac risk [...] 6. No prior study. Signed: Ranjan Almaraz [facility] Verified Date/Time: 05/16/2022 16:45:53 APTT 2022-05-16 15:17:06 Test Item Value Reference Range Interpretation Comments PARTIAL THROMBOPLASTIN TIME 62.6 seconds 22.5-36.0 H (BEAKER) (test code = 760) [id number] 04:51:58 Test Item Value Reference Range Interpretation Comments MAGNESIUM (BEAKER) (test code = 1.8 mg/dL 1.6-2.6 627) [employer] Treater ID - GWEN LBASIC METABOLIC [id number] 04:51:57 Test Item Value Reference Range Interpretation [...] not appl icable for dialysis patien ts [employer] Treater ID - PIAYA [id number] 04:32:03 Test Item Value Reference Range Interpretation [...] WBC 0-0 (BEAKER) (test code = 413) [id number] 16:30:12 Test Item Value Reference Range Interpretation Comments PARTIAL THROMBOPLASTIN TIME 37.5 seconds 22.5-36.0 H (BEAKER) (test code = 760) [id number] 06:58:36 Test Item Value Reference Range Interpretation [...] (test code = 413) HIGH SENSITIVITY TROPONIN [id number] 02:22:02 Test Item Value Reference Range Interpretation Comments HIGH SENSITIVITY 182 pg/ml See_Comment H [Automated message] TROPONIN I (test code The sy stem which = [id number]) generated this result transmitted ref erence range: <=17. Th e reference range was not used to int erpret this result as normal/abnormal . [employer] Treater ID - PIAYA LThe HOSPITAL WELLNESS COORDINATOR STAT High Sensitivity Troponin-I results should be used in conjunction with other diagnostic information such as ECG, clinical observations and information, and patient symptoms to aid in the diagnosis of NM.SARS-CoV2/RT-PCR (Asymptomatic ONLY)2022-05-15 01:13:52 Test Item Value Reference Interpretation Comments Range SARS-COV2/RT-PCR Negative Negative The SARS-Co V-2 (test code = target nucleic 89446-6) acids are not detected in thi s [...] revoked sooner. Fact Sheet for Healthcare Providers: https://www.[employer]/Documents/Xp ert%20Xpress%20SAR S%20CoV-2/Fact%20S heets/302-3802%20S ARS-COV-2%20HEALTH CARE%20PROVIDERS%2 0FACT%20SHEET.pdf Fact Sheet for Healthcare Patients: https://www.[employer]/Documents/Xp ert%20Xpress%20SAR S%20CoV-2/Fact%20S heets/302-3801%20S ARS-COV-2%20PATIEN T%20FACT%20SHEET.p df Lab Interpretation Normal (test code = 68847-2) [facility]2022-05-15 01:13:52 Test Item Value Reference Interpretation Comments Range SARS-COV2/RT-PCR Negative Negative The SARS-Co V-2 (test code = target nucleic 41230-1) acids are not detected in [facility] s specimen. Negat valencia results do not [...] revoked sooner. Fact Sheet for Healthcare Providers: https://www.[employer]/Documents/Xp ert%20Xpress%20SAR S%20CoV-2/Fact%20S heets/302-3802%20S ARS-COV-2%20HEALTH CARE%20PROVIDERS%2 0FACT%20SHEET.pdf Fact Sheet for Healthcare Patients: https://wwwData[employer]/Documents/Xp ert%20Xpress%20SAR S%20CoV-2/Fact%20S heets/302-3801%20S ARS-COV-2%20PATIEN T%20FACT%20SHEET.p df Lab Interpretation Normal (test code = 22814-1) [facility]As[facility]omatic ONLY)2022-05-15 01:13:52 Test Item Value Reference Interpretation Comments Range SARS-COV2/RT-PCR Negative Negative The SARS-Co V-2 (test code = target nucleic 41904-1) acids are not detected in thi s [...] revoked sooner. Fact Sheet for Healthcare Providers: https://www.[employer]/Documents/Xp ert%20Xpress%20SAR S%20CoV-2/Fact%20S heets/302-3802%20S ARS-COV-2%20HEALTH CARE%20PROVIDERS%2 0FACT%20SHEET.pdf Fact Sheet for Healthcare Patients: https://www.[employer]/Documents/Xp ert%20Xpress%20SAR S%20CoV-2/Fact%20S heets/302-3801%20S ARS-COV-2%20PATIEN T%20FACT%20SHEET.p df Lab Interpretation Normal (test code = 14289-8) [facility]omatic ONLY[facility]2022-05-15 01:13:52 Test Item Value Reference Interpretation Comments Range SARS-COV2/RT-PCR Negative Negative The SARS-Co V-2 (test code = target nucleic 60049-4) acids are not detected in thi s [...] revoked sooner. Fact Sheet for Healthcare Providers: https://www.[employer]/Documents/Xp ert%20Xpress%20SAR S%20CoV-2/Fact%20S heets/302-3802%20S ARS-COV-2%20HEALTH CARE%20PROVIDERS%2 0FACT%20SHEET.pdf Fact Sheet for Healthcare Patients: https://www.[employer]/Documents/Xp ert%20Xpress%20SAR S%20CoV-2/Fact%20S heets/302-3801%20S ARS-COV-2%20PATIEN T%20FACT%20SHEET.p df Lab Interpretation Normal (test code = 48633-0) [facility] ONLY)2022-05-15 01:13:52 Test Item Value Reference Interpretation Comments Range SARS-COV2/RT-PCR Negative Negative The SARS-Co V-2 (test code = target nucleic 52715-9) acids are not detected in thi s [...] revoked sooner. Fact Sheet for Healthcare Providers: https://www.[employer]/Documents/Xp ert%20Xpress%20SAR S%20CoV-2/Fact%20S heets/302-3802%20S ARS-COV-2%20HEALTH CARE%20PROVIDERS%2 0FACT%20SHEET.pdf Fact Sheet for Healthcare Patients: https://www.[employer]/Documents/Xp ert%20Xpress%20SAR S%20CoV-2/Fact%20S heets/302-3801%20S ARS-COV-2%20PATIEN T%20FACT%20SHEET.p df Lab Interpretation Normal (test code = 21252-1) [facility]omatic ONLY)2022-05-15 01:13:52 Test Item Value Reference Interpretation Comments Range SARS-COV2/RT-PCR Negative Negative The SARS-Co V-2 (test code = target nucleic 24806-9) acids are not detected in thi s [...] om SARS-CoV-2 in a nasopharyngeal swab specimen [facility] from individual s suspected of COVID-19 by [...] revoked sooner. Fact Sheet for Healthcare Providers: https://www.[employer]/Documents/Xp ert%20Xpress%20SAR S%20CoV-2/Fact%20S heets/302-3802%20S ARS-COV-2%20HEALTH CARE%20PROVIDERS%2 0FACT%20SHEET.pdf Fact Sheet for Healthcare Patients: https://www.[employer]/Documents/Xp ert%20Xpress%20SAR S%20CoV-2/Fact%20S heets/302-3801%20S ARS-COV-2%20PATIEN T%20FACT%20SHEET.p df Lab Interpretation Normal (test code = 10097-6) [facility]omatic ONLY)2022-05-15 01:13:52 Test Item Value Reference Interpretation Comments Range SARS-COV2/RT-PCR Negative Negative The SARS-Co V-2 (test code = target nucleic 24595-4) acids are not detected in thi s [...] revoked sooner. Fact Sheet for Healthcare Providers: https://www.[employer]/Documents/Xp ert%20Xpress%20SAR S%20CoV-2/Fact%20S heets/302-3802%20S ARS-COV-2%20HEALTH CARE%20PROVIDERS%2 0FACT%20SHEET.pdf Fact Sheet for Healthcare Patients: https://www.[employer]/Documents/Xp ert%20Xpress%20SAR S%20CoV-2/Fact%20S heets/302-3801%20S ARS-COV-2%20PATIEN T%20FACT%20SHEET.p df Lab Interpretation Normal (test code = 80040-3) [facility])2022-05-15 01:13:52 Test Item Value Reference Range Interpretation Comments SARS-COV2/RT-PCR Negative Negative The SARS-Co V-2 target (test code = nucleic acids a re not 0041347) detected in thi s specimen. Negative result [...] revoked sooner. Fact Sheet for Healthcare Providers: https://www.[employer]/Documents/Xpert%20Xpress%20SARS%20CoV-2/Fact%20Sheets/302-3802%38EXLP-ORW-7%2 0HEALTHCARE%20PROVIDERS%20FACT%20SHEET.pdf Fact Sheet for Healthcare Patients: https://www.[employer]/Documents/Xpert%20X press%20SARS%20CoV-2/Fact%20Sheets/302-3801%64PEQP-BJK-1%20PATIENT%20FACT%20SHEE T.pdfHIGH SENSITIVITY TROPONIN [id number] 23:36:40 Test Item Value Reference Range Interpretation Comments HIGH SENSITIVITY 148 pg/ml See_Comment H [Automated message] TROPONIN I (test code The sy stem which = 5943835) generated this result transmitted ref erence range: <=17. Th e reference range was not used to int erpret this result as normal/abnormal . Wood Pole Treater ID - PIAYA LThe HOSPITAL WELLNESS COORDINATOR STAT High Sensitivity Troponin-I results should be used in conjunction with other diagnostic information such as ECG, clinical observations and information, and patient symptoms to aid in the diagnosis of NM.[id number] 23:35:01 Test Item Value Reference Range Interpretation Comments PARTIAL THROMBOPLASTIN TIME 36.2 seconds 22.5-36.0 H (BEAKER) (test code = 760) [id number] 23:33:40 Test Item Value Reference Range Interpretation Comments PARTIAL THROMBOPLASTIN TIME 35.9 seconds 22.5-36.0 (BEAKER) (test code = 760) LIPID [id number] 23:31:17 Test Item Value Reference Range Interpretation [...] Borderline 130-159 High 160-189 Very High >=190 Wood Pole Treater ID - DANUTA MPLATELET [id number] 23:02:35 Test Item Value Reference Range Interpretation Comments PLATELET COUNT (BEAKER) (test 166 K/CU MM 150-450 code = 756) Wood Pole Treater ID - [id number] SENSITIVITY TROPONIN [id number] 19:17:02 Test Item Value Reference Range Interpretation Comments HIGH SENSITIVITY 57 pg/ml See_Comment H [Automated message] TROPONIN I (test code = The system which [id number]) generated this result transmitted ref erence range: <=17. Th e reference range was not used to int erpret this result as normal/abnormal . Wood Pole Treater ID - DANUTA MThe HOSPITAL WELLNESS COORDINATOR STAT High Sensitivity Troponin-I results should be used in conjunction with other diagnostic information such as ECG, clinical observations and information, and patient symptoms to aid in the diagnosis of NM.HIGH SENSITIVITY TROPONIN [id number] 17:36:27 Test Item Value Reference Range Interpretation Comments HIGH SENSITIVITY 22 pg/ml See_Comment H [Automated message] TROPONIN I (test code = The system which [id number]) generated this result transmitted ref erence range: <=17. Th e reference range was not used to int erpret this result as normal/abnormal . Wood Pole Treater ID - DANUTA Hannae HOSPITAL WELLNESS COORDINATOR STAT High Sensitivity Troponin-I results should be used in conjunction with other diagnostic information such as ECG, clinical observations and information, and patient symptoms to aid in the diagnosis of NM.COMPREHENSIVE METABOLIC [id number] 17:29:31 Test Item Value Reference Range Interpretation [...] not appl icable for dialysis patien ts [employer] Treater ID - DANUTA MCBC W/PLT COUNT & AUTO [id number] 17:18:57 Test Item Value Reference Range Interpretation [...] (test code = 2801) RAD, CHEST, 2 [id number] 16:44:00Reason for exam:->r/o [facility] 1965 Sex: FFINAL REPORT INDICATION: r/o ACS COMPARISON: None TECHNIQUE: AP and lateral view ofthe chest. FINDINGS: Lungs and pleura: Clear lungs. No effusion.Heart and mediastinum: Normal heart size. Unremarkable mediastinal contours.Osseous structures: No acute abnormality.Other: None. IMPRESSION: No acute intrathoracic abnormality. Signed: Alyssia Nelson MDReport Verified Date/Time: 05/14/2022 16:44:29 COMPREHENSIVE METABOLIC [id number] 05:15:00 Test Item Value Reference Range Interpretation [...] TOTAL (test code = ALKP) GLUCOSE BEDSIDE [id number] 19:48:00 Test Item Value Reference Range Interpretation Comments GLUCOSE BEDSIDE TESTING (test code = 98 mg/dL 70-110 N GLUBED) - XR SMALL [id number] 19:38:00 [facility] : 1965 Sex: F Name: RO MAYNARD [facility] : 1965 Age/S: 56 / F [id number] [address] [place] Unit #: [id number] Loc: [place] [address] Phys: Dawson Ramírez MD Acct: [id number] Dis Date: Status: ADM IN PHONE #: [phone] Exam Date: 2021 1900 FAX #: Reason: evaluate for Crohn's EXAMS: CPT: [id number] XR S MALL BOWEL 61065 Fluoro Time: 0 DAP (Gy m2): Air Kerma (mGy): Location of dictation: H 14 Small bowel follow-through: HISTORY: Right upper quadrant pain, evaluate for Crohn's disease. 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 No [...] PAGE 1 Signed Report Name: RO MAYNARD [place] : 1965 Age/S: 56 / F [id number] [address] [place] Unit #: [id number] Loc: [place] [address] Phys: Dawson Ramírez MD Acct: [id number] Dis Date: Status: ADM IN PHONE #: [phone] Exam Date: 2021 1900 FAX #:Reason: evaluate for Crohn's EXAMS: CPT: [id number] XR SMALL BOWEL 86307 Fluoro Time: 0 DAP (Gy m2): Air Kerma (mGy): (Continued) Technologist: Zainab Moran, RT(R)(CT)(MRI) Trnscb Date/Time: 2021 (1937) [email or web address] Orig Print D/T: S: 2021 (1941) PAGE 2 Signed ReportGLUCOSE BEDSIDE [id number] 17:05:00 Test Item Value Reference Range Interpretation Comments GLUCOSE BEDSIDE TESTING (test code 148 mg/dL 70-110 H = GLUBED) - HEPA IMAG INCL GB W [id number] 16:10:00 [facility] RO [facility] : 1965 Sex: F FAX: Jaiden Huff MD [phone] Camps: PM St: ADM FAX: Shawna Scott MD [phone] FAX: Dawson Hodge MD [phone] Name: RO MAYNARD : 1965 Age/S: 56/F [address] [address] [place] Unit #: [id number] Loc: [address] [place] [address] Phys: Dawson Ramírez MD Acct: [id number] Dis Date: Status: ADM IN PHONE #: [phone] Exam Date: 2021 1553 FAX #: Reason: RUQ pain EXAMS: CPT: [id number] HEPA IMAG INCL GB W PHA [id number] EXAMINATION: Nuclear medicine hepatobiliary scan with ejection [...] MD Technologist: MANUEL Kevin Transcribed Date/Time/By: 2021 (1417) :[email or web address] Orig Print D/T: S: 2021 (6313) PAGE 1 Signed ReportGLUCOSE BEDSIDE [id number] 11:56:00 Test Item Value Reference Range Interpretation Comments GLUCOSE BEDSIDE TESTING (test code 131 mg/dL 70-110 H = GLUBED) CBC W/AUTO [id number] 06:20:00 Test Item Value Reference Range Interpretation [...] NT WITH AUTO DIFFERENTI AL. COMPREHENSIVE METABOLIC [id number] 04:48:00 Test Item Value Reference Range Interpretation [...] 45-117 N TOTAL (test code = ALKP) [id number] 04:48:00 Test Item Value Reference Range Interpretation Comments PHOSPHOROUS (test code = PHOS) 3.8 MG/DL 2.5-4.9 N [id number] 04:48:00 Test Item Value Reference Range Interpretation Comments MAGNESIUM (test code = MAG) 2.1 MG/DL 1.8-2.4 N COMPREHENSIVE METABOLIC [id number] 04:46:00 Test Item Value Reference Range Interpretation [...] TOTAL (test Unit/L 45-117 code = ALKP) [id number] 04:46:00 Test Item Value Reference Range Interpretation Comments PHOSPHOROUS (test code = PHOS) MG/DL 2.5-4.9 [id number] 04:46:00 Test Item Value Reference Range Interpretation Comments MAGNESIUM (test code = MAG) MG/DL 1.8-2.4 [id number] 04:46:00 Test Item Value Reference Range Interpretation [...] may dexter yby method. Completed by Nursing: [id number] 04:46:00 Test Item Value Reference Range Interpretation Comments ALCOHOL (test code = ALC) < 3 MG/DL 0-10 N Completed by Nursing: NOCBC W/AUTO [id number] 04:36:00 Test Item Value Reference Range Interpretation [...] DIFF/SCN CRITERIA MDIFF) DRUGS OF ABUSE SCREEN [id number] 21:43:00 Test Item Value Reference Range Interpretation [...] this result as normal/abnormal . - MRI [id number] 19:05:00 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 Right upper quadrant pain [...] 02/25/2021(1907) PAGE 1 Signed ReportCOVID 19 INHOUSE [id number] 16:22:00 Test Item Value Reference Range Interpretation Comments COVID 19 INHOUSE AG NEGATIVE Negative Per manu facturer, (test code = negative result s should [id number]) be treated aspr esumptive and, if inconsi [...] symptoms co nsistent with COVID-19. CBC W/AUTO [id number] 15:38:00 Test Item Value Reference Range Interpretation [...] WITH AUTO DIFFERENTIAL.NO PLT CLUMPS OBSERVED RBC [id number] 15:38:00 Test Item Value Reference Range Interpretation Comments PLATELET ESTIMATE (test ADEQUATE THOUSAND ADEQUATE code = PLTEST) PLATELET MORPHOLOGY (test NORMAL code = PLTMORPH) CBC W/AUTO [id number] 15:33:00 Test Item Value Reference Range Interpretation [...] code DIFF/SCN CRITERIA = MDIFF) CBC W/AUTO [id number] 15:33:00 Test Item Value Reference Range Interpretation [...] code DIFF/SCN CRITERIA = MDIFF) BASIC METABOLIC [id number] 14:26:00 Test Item Value Reference Range Interpretation [...] CA) 8.7 MG/DL 8.5-10.1 N HEPATIC FUNCTION [id number] 14:26:00 Test Item Value Reference Range Interpretation [...] 93 Unit/L 45-117 N code = ALKP) [id number] 14:26:00 Test Item Value Reference Range Interpretation Comments LIPASE (test code = LIP) 95 Unit/L 114-286 L UA RFLX MICR CULT IF [id number] 14:10:00 Test Item Value Reference Range Interpretation [...] UACULT) Indication for culture: RiskForSepsis-no [facility] W/AUTO [id number] 14:04:00 Test Item Value Reference Range Interpretation [...] (test code = DIFF/SCN CRITERIA MDIFF) CHEM [id number] 14:26:00 Test Item Value Reference Range Interpretation Comments BUN (test code = BUN) 8 7-22 [facility] [id number] 14:26:00 Test Item Value Reference Range Interpretation Comments Glucose Lvl (test code = Glucose Lvl) 91 70-99 [facility] [id number] 14:26:00 Test Item Value Reference Range Interpretation Comments CO2 (test code = CO2) 29 24-32 [facility] [id number] 14:26:00 Test Item Value Reference Range Interpretation Comments AGAP (test code = AGAP) 6.7 10.0-20.0 [facility] [id number] 14:26:00 Test Item Value Reference Range Interpretation Comments eGFR (test code = eGFR) 86 [facility] [id number] 14:26:00 Test Item Value Reference Range Interpretation Comments Creatinine Lvl (test code = Creatinine 0.8 0.5-1.4 Lvl) [facility]2014-09-22 14:26:00 Test Item Value Reference Range Interpretation Comments Chloride Lvl (test code = Chloride Lvl) 104 95-109 [facility]2014-09-22 14:26:00 Test Item Value Reference Range Interpretation Comments Potassium Lvl (test code = Potassium 3.7 3.5-5.1 Lvl) [facility]2014-09-22 14:26:00 Test Item Value Reference Range Interpretation Comments Sodium Lvl (test code = Sodium Lvl) 136 135-145 [facility]2014-09-22 14:26:00 Test Item Value Reference Range Interpretation Comments Calcium Lvl (test code = Calcium Lvl) 9.7 8.5-10.5 [id number] 14:26:00 Test Item Value Reference Range Interpretation Comments MCV (test code = MCV) 101.6 80.0-98.0 [facility]villeKxxxusqDVOQOTNRFB3430-11-05 14:26:00 Test Item Value Reference Range Interpretation Comments MCH (test code = MCH) 35.5 pg 27.0-31.0 [facility] Stephenvil[id number] 14:26:00 Test Item Value Reference Range Interpretation Comments Hgb (test code = Hgb) 13.3 12.0-16.0 [facility] StephenvilleLwaoubgLRWSPGHIME0725-63-31 14:26:00 Test Item Value Reference Range Interpretation Comments Hct (test code = Hct) 37.9 36.0-48.0 [facility] StephenvilleNyzodxuNQTVUEPWDU9712-70-22 14:26:00 Test Item Value Reference Range Interpretation Comments RBC (test code = RBC) 3.73 4.20-5.40 [facility] StephenvilleUlpknrlGRQHNKBLFW3751-68-89 14:26:00 Test Item Value Reference Range Interpretation Comments WBC (test code = WBC) 6.1 3.7-10.4 [facility] StephenvilleFobaygxUHQMOIOETK0552-12-77 14:26:00 Test Item Value Reference Range Interpretation Comments MPV (test code = MPV) 8.0 7.4-10.4 [facility] StephenvilleQdhlaksEYPPPRFIES0267-00-46 14:26:00 Test Item Value Reference Range Interpretation Comments RDW (test code = RDW) 17.2 11.5-14.5 [facility] StephenvilleP[id number] 14:26:00 Test Item Value Reference Range Interpretation Comments Platelet (test code = Platelet) 223 133-450 [facility] StephenvilleNeonkluYXHVQHKINQ0132-75-38 14:26:00 Test Item Value Reference Range Interpretation Comments MCHC (test code = MCHC) 35.0 32.0-36.0 [facility] StephenvilleWiqwxypECOJBJFWNV9635-74-97 14:26:00 Test Item Value Reference Range Interpretation Comments INR (test code = INR) 0.93 0.85-1.17 [facility] StephenvilleNmuzaisPYKBCCBZIJ3763-61-46 14:26:00 Test Item Value Reference Range Interpretation Comments PT (test code = PT) 12.4 s 12.0-14.7 [facility]2014-09-22 14:26:00 Test Item Value Reference Range Interpretation Comments BUN (test code = BUN) 8 7- [facility]2014-09-22 14:26:00 Test Item Value Reference Range Interpretation Comments Glucose Lvl (test code = Glucose Lvl) 91 70-99 [facility]2014-09-22 14:26:00 Test Item Value Reference Range Interpretation Comments CO2 (test code = CO2) 29 24-32 [facility]2014-09-22 14:26:00 Test Item Value Reference Range Interpretation Comments AGAP (test code = AGAP) 6.7 10.0-20.0 [facility]2014-09-22 14:26:00 Test Item Value Reference Range Interpretation Comments eGFR (test code = eGFR) 86 [facility]2014-09-22 14:26:00 Test Item Value Reference Range Interpretation Comments Creatinine Lvl (test code = Creatinine 0.8 0.5-1.4 Lvl) [facility]2014-09-22 14:26:00 Test Item Value Reference Range Interpretation Comments Chloride Lvl (test code = Chloride Lvl) 104 95-109 [facility]2014-09-22 14:26:00 Test Item Value Reference Range Interpretation Comments Potassium Lvl (test code = Potassium 3.7 3.5-5.1 Lvl) [facility]2014-09-22 14:26:00 Test Item Value Reference Range Interpretation Comments Sodium Lvl (test code = Sodium Lvl) 136 135-145 [facility]2014-09-22 14:26:00 Test Item Value Reference Range Interpretation Comments Calcium Lvl (test code = Calcium Lvl) 9.7 8.5-10.5 [facility] StephenvilleXnxsdtjJBVCQIFFCZ9364-85-20 14:26:00 Test Item Value Reference Range Interpretation Comments MCV (test code = MCV) 101.6 80.0-98.0 [facility] StephenvilleZlhsgejMRBTKXGBGO4196-73-32 14:26:00 Test Item Value Reference Range Interpretation Comments MCH (test code = MCH) 35.5 pg 27.0-31.0 [facility] StephenvilleIbcgakqIPJQCXEFWF5348-25-68 14:26:00 Test Item Value Reference Range Interpretation Comments Hgb (test code = Hgb) 13.3 12.0-16.0 [facility]villeKrpefdaIUUDQIAKIL9207-85-19 14:26:00 Test Item Value Reference Range Interpretation Comments Hct (test code = Hct) 37.9 36.0-48.0 [facility] StephenvilleZjjltncKIDAJMFREZ4714-88-83 14:26:00 Test Item Value Reference Range Interpretation Comments RBC (test code = RBC) 3.73 4.20-5.40 [facility] StephenvilleYelyedrUYICERQZIS5392-00-39 14:26:00 Test Item Value Reference Range Interpretation Comments WBC (test code = WBC) 6.1 3.7-10.4 [facility] StephenvilleFnqrcdnKGWIHEARJS9220-09-83 14:26:00 Test Item Value Reference Range Interpretation Comments MPV (test code = MPV) 8.0 7.4-10.4 [facility] StephenvillePupkxozGSPRVUQATX3087-69-60 14:26:00 Test Item Value Reference Range Interpretation Comments RDW (test code = RDW) 17.2 11.5-14.5 [facility] StephenvilleDjvtvmxGVOETURSJN5929-76-32 14:26:00 Test Item Value Reference Range Interpretation Comments Platelet (test code = Platelet) 223 133-450 [facility] StephenvilleRzrqjejXQRKZSIRUT6101-79-21 14:26:00 Test Item Value Reference Range Interpretation Comments MCHC (test code = MCHC) 35.0 32.0-36.0 [facility] StephenvilleKzlzhoaTUWHNRBSGP4525-33-80 14:26:00 Test Item Value Reference Range Interpretation Comments INR (test code = INR) 0.93 0.85-1.17 [facility] StephenvilleTzdwvcfEGWKZSTMAU3327-77-97 14:26:00 Test Item Value Reference Range Interpretation Comments PT (test code = PT) 12.4 s 12.0-14.7 [facility]2014-09-22 14:26:00 Test Item Value Reference Range Interpretation Comments BUN (test code = BUN) 8 - [facility]2014-09-22 14:26:00 Test Item Value Reference Range Interpretation Comments Glucose Lvl (test code = Glucose Lvl) 91 70-99 [facility]2014-09-22 14:26:00 Test Item Value Reference Range Interpretation Comments CO2 (test code = CO2) 29 24-32 [facility]2014-09-22 14:26:00 Test Item Value Reference Range Interpretation Comments AGAP (test code = AGAP) 6.7 10.0-20.0 [facility]2014-09-22 14:26:00 Test Item Value Reference Range Interpretation Comments eGFR (test code = eGFR) 86 [facility]2014-09-22 14:26:00 Test Item Value Reference Range Interpretation Comments Creatinine Lvl (test code = Creatinine 0.8 0.5-1.4 Lvl) [facility]2014-09-22 14:26:00 Test Item Value Reference Range Interpretation Comments Chloride Lvl (test code = Chloride Lvl) 104 95-109 [facility]2014-09-22 14:26:00 Test Item Value Reference Range Interpretation Comments Potassium Lvl (test code = Potassium 3.7 3.5-5.1 Lvl) [facility]2014-09-22 14:26:00 Test Item Value Reference Range Interpretation Comments Sodium Lvl (test code = Sodium Lvl) 136 135-145 [facility]2014-09-22 14:26:00 Test Item Value Reference Range Interpretation Comments Calcium Lvl (test code = Calcium Lvl) 9.7 8.5-10.5 [facility] StephenvilleRxppmljHEMRWSLGCD4417-84-89 14:26:00 Test Item Value Reference Range Interpretation Comments MCV (test code = MCV) 101.6 80.0-98.0 [facility] StephenvilleBowoucaNTZZONEJFW2213-21-07 14:26:00 Test Item Value Reference Range Interpretation Comments MCH (test code = MCH) 35.5 pg 27.0-31.0 [facility] StephenvilleFkggwfhHYOMNQYKBA1670-07-05 14:26:00 Test Item Value Reference Range Interpretation Comments Hgb (test code = Hgb) 13.3 12.0-16.0 [facility] StephenvilleFqeosriOWJUXCRPLV6129-55-02 14:26:00 Test Item Value Reference Range Interpretation Comments Hct (test code = Hct) 37.9 36.0-48.0 [facility] StephenvilleOlaacheJQFDBAJWLZ5071-21-72 14:26:00 Test Item Value Reference Range Interpretation Comments RBC (test code = RBC) 3.73 4.20-5.40 [facility] StephenvilleYgivphoVVYMPKRBOT8606-80-98 14:26:00 Test Item Value Reference Range Interpretation Comments WBC (test code = WBC) 6.1 3.7-10.4 [facility] StephenvilleDjnkccgQCKVKRXDSV3553-69-18 14:26:00 Test Item Value Reference Range Interpretation Comments MPV (test code = MPV) 8.0 7.4-10.4 [facility] StephenvilleVpljzjtSJXTPUNKBK0820-23-38 14:26:00 Test Item Value Reference Range Interpretation Comments RDW (test code = RDW) 17.2 11.5-14.5 [facility] StephenvilleUctjcxwRSKBGLHTHS2732-78-47 14:26:00 Test Item Value Reference Range Interpretation Comments Platelet (test code = Platelet) 223 133-450 [facility] StephenvilleBztizrxRWONGHQRGG9061-63-44 14:26:00 Test Item Value Reference Range Interpretation Comments MCHC (test code = MCHC) 35.0 32.0-36.0 [facility] StephenvilleKcqybloGWLPYBMVHA5479-40-10 14:26:00 Test Item Value Reference Range Interpretation Comments INR (test code = INR) 0.93 0.85-1.17 [facility] StephenvilleGxlbmpqZBFQELANSV0181-37-51 14:26:00 Test Item Value Reference Range Interpretation Comments PT (test code = PT) 12.4 s 12.0-14.7 [facility]2014-09-22 14:26:00 Test Item Value Reference Range Interpretation Comments BUN (test code = BUN) 8 7- [facility]2014-09-22 14:26:00 Test Item Value Reference Range Interpretation Comments Glucose Lvl (test code = Glucose Lvl) 91 70-99 [facility]2014-09-22 14:26:00 Test Item Value Reference Range Interpretation Comments CO2 (test code = CO2) 29 24-32 [facility]2014-09-22 14:26:00 Test Item Value Reference Range Interpretation Comments AGAP (test code = AGAP) 6.7 10.0-20.0 [facility]2014-09-22 14:26:00 Test Item Value Reference Range Interpretation Comments eGFR (test code = eGFR) 86 [facility]2014-09-22 14:26:00 Test Item Value Reference Range Interpretation Comments Creatinine Lvl (test code = Creatinine 0.8 0.5-1.4 Lvl) [facility]2014-09-22 14:26:00 Test Item Value Reference Range Interpretation Comments Chloride Lvl (test code = Chloride Lvl) 104 95-109 [facility]2014-09-22 14:26:00 Test Item Value Reference Range Interpretation Comments Potassium Lvl (test code = Potassium 3.7 3.5-5.1 Lvl) [facility]2014-09-22 14:26:00 Test Item Value Reference Range Interpretation Comments Sodium Lvl (test code = Sodium Lvl) 136 135-145 [facility]2014-09-22 14:26:00 Test Item Value Reference Range Interpretation Comments Calcium Lvl (test code = Calcium Lvl) 9.7 8.5-10.5 [facility] StephenvilleZwzrqwbCUSJLNOCTJ0422-84-40 14:26:00 Test Item Value Reference Range Interpretation Comments MCV (test code = MCV) 101.6 80.0-98.0 [facility] StephenvilleFcyxnzwYEISPBVLEA5513-63-43 14:26:00 Test Item Value Reference Range Interpretation Comments MCH (test code = MCH) 35.5 pg 27.0-31.0 [facility] StephenvilleDvefsfaBLNFOBEOWM0015-55-68 14:26:00 Test Item Value Reference Range Interpretation Comments Hgb (test code = Hgb) 13.3 12.0-16.0 [facility] StephenvilleRdudswvGHHLCHRWSP7687-61-57 14:26:00 Test Item Value Reference Range Interpretation Comments Hct (test code = Hct) 37.9 36.0-48.0 [facility] StephenvilleVzyzpmcUBMKXMDOWA1321-37-60 14:26:00 Test Item Value Reference Range Interpretation Comments RBC (test code = RBC) 3.73 4.20-5.40 [facility] StephenvilleAfhqtopVATLWWPNWP6050-75-91 14:26:00 Test Item Value Reference Range Interpretation Comments WBC (test code = WBC) 6.1 3.7-10.4 [facility] StephenvilleTgxcklkDSMFSDCDCH6634-92-82 14:26:00 Test Item Value Reference Range Interpretation Comments MPV (test code = MPV) 8.0 7.4-10.4 [facility] StephenvilleYhdgjriLBDXMQWTBT4043-10-64 14:26:00 Test Item Value Reference Range Interpretation Comments RDW (test code = RDW) 17.2 11.5-14.5 [facility] StephenvilleVoqcdtiHDZRKYAZOY6627-44-85 14:26:00 Test Item Value Reference Range Interpretation Comments Platelet (test code = Platelet) 223 133-450 [facility] StephenvilleWzlxsatMCCVJUSFUO1837-54-54 14:26:00 Test Item Value Reference Range Interpretation Comments MCHC (test code = MCHC) 35.0 32.0-36.0 [facility] StephenvilleJtppzknNJHKZZZCGS3695-13-19 14:26:00 Test Item Value Reference Range Interpretation Comments INR (test code = INR) 0.93 0.85-1.17 [facility] StephenvilleVbepfqqMQDELOUIFJ3866-04-84 14:26:00 Test Item Value Reference Range Interpretation Comments PT (test code = PT) 12.4 s 12.0-14.7 [facility]2014-09-22 14:26:00 Test Item Value Reference Range Interpretation Comments BUN (test code = BUN) 8 7-22 [facility]2014-09-22 14:26:00 Test Item Value Reference Range Interpretation Comments Glucose Lvl (test code = Glucose Lvl) 91 70-99 [facility]2014-09-22 14:26:00 Test Item Value Reference Range Interpretation Comments CO2 (test code = CO2) 29 24-32 [facility]2014-09-22 14:26:00 Test Item Value Reference Range Interpretation Comments AGAP (test code = AGAP) 6.7 10.0-20.0 [facility]2014-09-22 14:26:00 Test Item Value Reference Range Interpretation Comments eGFR (test code = eGFR) 86 [facility]2014-09-22 14:26:00 Test Item Value Reference Range Interpretation Comments Creatinine Lvl (test code = Creatinine 0.8 0.5-1.4 Lvl) [facility]2014-09-22 14:26:00 Test Item Value Reference Range Interpretation Comments Chloride Lvl (test code = Chloride Lvl) 104 95-109 [facility]2014-09-22 14:26:00 Test Item Value Reference Range Interpretation Comments Potassium Lvl (test code = Potassium 3.7 3.5-5.1 Lvl) [facility]2014-09-22 14:26:00 Test Item Value Reference Range Interpretation Comments Sodium Lvl (test code = Sodium Lvl) 136 135-145 [facility]2014-09-22 14:26:00 Test Item Value Reference Range Interpretation Comments Calcium Lvl (test code = Calcium Lvl) 9.7 8.5-10.5 [facility] StephenvilleAoruqqfYBVOYHSPMO0020-57-59 14:26:00 Test Item Value Reference Range Interpretation Comments MCV (test code = MCV) 101.6 80.0-98.0 [facility] StephenvilleSngpzcsLTXEIWPZKW1998-13-51 14:26:00 Test Item Value Reference Range Interpretation Comments MCH (test code = MCH) 35.5 pg 27.0-31.0 [facility] StephenvilleUymftpjLWSKADGUZV3704-01-60 14:26:00 Test Item Value Reference Range Interpretation Comments Hgb (test code = Hgb) 13.3 12.0-16.0 [facility] StephenvilleGjrhafgRJUDKGHLGF6003-39-77 14:26:00 Test Item Value Reference Range Interpretation Comments Hct (test code = Hct) 37.9 36.0-48.0 [facility] StephenvilleZqsramyGJYXVEMCZQ6791-78-76 14:26:00 Test Item Value Reference Range Interpretation Comments RBC (test code = RBC) 3.73 4.20-5.40 [facility] StephenvilleTelmpmlQIBJDRDBSR8821-07-31 14:26:00 Test Item Value Reference Range Interpretation Comments WBC (test code = WBC) 6.1 3.7-10.4 [facility] StephenvilleIofkegoWPJQVSJDYP0992-43-16 14:26:00 Test Item Value Reference Range Interpretation Comments MPV (test code = MPV) 8.0 7.4-10.4 [facility] StephenvilleZwnrkkfADDZELRYKH1651-06-85 14:26:00 Test Item Value Reference Range Interpretation Comments RDW (test code = RDW) 17.2 11.5-14.5 [facility] StephenvilleJhajwywDDKXAUUZHE5967-35-07 14:26:00 Test Item Value Reference Range Interpretation Comments Platelet (test code = Platelet) 223 133-450 [facility] StephenvilleYvsvzmnLRDCOGQXFT7998-51-51 14:26:00 Test Item Value Reference Range Interpretation Comments MCHC (test code = MCHC) 35.0 32.0-36.0 [facility] StephenvilleMgrdlxaFFWGXIUVNL1638-03-09 14:26:00 Test Item Value Reference Range Interpretation Comments INR (test code = INR) 0.93 0.85-1.17 [facility] StephenvilleKqtvbhyAMQPTESROS8629-82-42 14:26:00 Test Item Value Reference Range Interpretation Comments PT (test code = PT) 12.4 s 12.0-14.7 [facility]2014-09-22 14:26:00 Test Item Value Reference Range Interpretation Comments BUN (test code = BUN) 8 - [facility]2014-09-22 14:26:00 Test Item Value Reference Range Interpretation Comments Glucose Lvl (test code = Glucose Lvl) 91 70-99 [facility]2014-09-22 14:26:00 Test Item Value Reference Range Interpretation Comments CO2 (test code = CO2) 29 24-32 [facility]2014-09-22 14:26:00 Test Item Value Reference Range Interpretation Comments AGAP (test code = AGAP) 6.7 10.0-20.0 [facility]2014-09-22 14:26:00 Test Item Value Reference Range Interpretation Comments eGFR (test code = eGFR) 86 [facility]2014-09-22 14:26:00 Test Item Value Reference Range Interpretation Comments Creatinine Lvl (test code = Creatinine 0.8 0.5-1.4 Lvl) [facility]2014-09-22 14:26:00 Test Item Value Reference Range Interpretation Comments Chloride Lvl (test code = Chloride Lvl) 104 95-109 [facility]2014-09-22 14:26:00 Test Item Value Reference Range Interpretation Comments Potassium Lvl (test code = Potassium 3.7 3.5-5.1 Lvl) [facility]2014-09-22 14:26:00 Test Item Value Reference Range Interpretation Comments Sodium Lvl (test code = Sodium Lvl) 136 135-145 [facility]2014-09-22 14:26:00 Test Item Value Reference Range Interpretation Comments Calcium Lvl (test code = Calcium Lvl) 9.7 8.5-10.5 [facility]villeFrlzecnVEVDERDVYB7002-69-79 14:26:00 Test Item Value Reference Range Interpretation Comments MCV (test code = MCV) 101.6 80.0-98.0 [facility]villeQiuvaapSRRVVDXTJC4245-61-29 14:26:00 Test Item Value Reference Range Interpretation Comments MCH (test code = MCH) 35.5 pg 27.0-31.0 [facility] StephenvilleBhmoctfIFTWMWTLPL5137-81-21 14:26:00 Test Item Value Reference Range Interpretation Comments Hgb (test code = Hgb) 13.3 12.0-16.0 [facility]villeMqtpexuKRDBRBVTCY1191-09-57 14:26:00 Test Item Value Reference Range Interpretation Comments Hct (test code = Hct) 37.9 36.0-48.0 [facility]villeGfimztkJTIYOXWQDB4513-71-00 14:26:00 Test Item Value Reference Range Interpretation Comments RBC (test code = RBC) 3.73 4.20-5.40 [facility]villeOogyeywDBCARVWLCX7411-02-83 14:26:00 Test Item Value Reference Range Interpretation Comments WBC (test code = WBC) 6.1 3.7-10.4 [facility]villeNhgwbaoBZXFPPYFXD0989-13-00 14:26:00 Test Item Value Reference Range Interpretation Comments MPV (test code = MPV) 8.0 7.4-10.4 [facility] StephenvilleIcgynesUBRQTUTWNH5084-68-80 14:26:00 Test Item Value Reference Range Interpretation Comments RDW (test code = RDW) 17.2 11.5-14.5 [facility]villeAaqjhreFMQMDOGVUN2638-91-48 14:26:00 Test Item Value Reference Range Interpretation Comments Platelet (test code = Platelet) 223 133-450 [facility] StephenvilleLyqgcbwRQLDDFPWNF3350-90-82 14:26:00 Test Item Value Reference Range Interpretation Comments MCHC (test code = MCHC) 35.0 32.0-36.0 [facility] StephenvilleLbqdycqDMVSBZCWNG8199-33-77 14:26:00 Test Item Value Reference Range Interpretation Comments INR (test code = INR) 0.93 0.85-1.17 [facility]villeXvqstzpRUZLHHLNZV3102-74-94 14:26:00 Test Item Value Reference Range Interpretation Comments PT (test code = PT) 12.4 s 12.0-14.7 [facility]2014-09-22 14:26:00 Test Item Value Reference Range Interpretation Comments BUN (test code = BUN) 8 7- [facility]2014-09-22 14:26:00 Test Item Value Reference Range Interpretation Comments Glucose Lvl (test code = Glucose Lvl) 91 70-99 [facility]2014-09-22 14:26:00 Test Item Value Reference Range Interpretation Comments CO2 (test code = CO2) 29 24-32 [facility]2014-09-22 14:26:00 Test Item Value Reference Range Interpretation Comments AGAP (test code = AGAP) 6.7 10.0-20.0 [facility]2014-09-22 14:26:00 Test Item Value Reference Range Interpretation Comments eGFR (test code = eGFR) 86 [facility]2014-09-22 14:26:00 Test Item Value Reference Range Interpretation Comments Creatinine Lvl (test code = Creatinine 0.8 0.5-1.4 Lvl) [facility]2014-09-22 14:26:00 Test Item Value Reference Range Interpretation Comments Chloride Lvl (test code = Chloride Lvl) 104 95-109 [facility]2014-09-22 14:26:00 Test Item Value Reference Range Interpretation Comments Potassium Lvl (test code = Potassium 3.7 3.5-5.1 Lvl) [facility]2014-09-22 14:26:00 Test Item Value Reference Range Interpretation Comments Sodium Lvl (test code = Sodium Lvl) 136 135-145 [facility]2014-09-22 14:26:00 Test Item Value Reference Range Interpretation Comments Calcium Lvl (test code = Calcium Lvl) 9.7 8.5-10.5 [facility] [place]villeHzaghoaEMZZBNTUFE5633-47-22 14:26:00 Test Item Value Reference Range Interpretation Comments MCV (test code = MCV) 101.6 80.0-98.0 [facility] StephenvilleVtmusozKUWRFFWRGU1806-47-76 14:26:00 Test Item Value Reference Range Interpretation Comments MCH (test code = MCH) 35.5 pg 27.0-31.0 [facility] StephenvilleLopxrdhNWADEJPKJX9184-04-68 14:26:00 Test Item Value Reference Range Interpretation Comments Hgb (test code = Hgb) 13.3 12.0-16.0 [facility] StephenvilleSxfnbxsIEWYRUTNBB5534-58-30 14:26:00 Test Item Value Reference Range Interpretation Comments Hct (test code = Hct) 37.9 36.0-48.0 [facility]villeOjyuyzzSAVIYFLILR5211-09-25 14:26:00 Test Item Value Reference Range Interpretation Comments RBC (test code = RBC) 3.73 4.20-5.40 [facility] StephenvilleFviqjzcNGSCXDQJJO5140-09-58 14:26:00 Test Item Value Reference Range Interpretation Comments WBC (test code = WBC) 6.1 3.7-10.4 [facility] StephenvilleQaawfpxIGZNBGLUSY8672-27-16 14:26:00 Test Item Value Reference Range Interpretation Comments MPV (test code = MPV) 8.0 7.4-10.4 [facility] StephenvilleQejaukrPSOFJUOXSS6623-57-14 14:26:00 Test Item Value Reference Range Interpretation Comments RDW (test code = RDW) 17.2 11.5-14.5 [facility] StephenvilleUffnjvuPPBAXCXTMX3538-97-67 14:26:00 Test Item Value Reference Range Interpretation Comments Platelet (test code = Platelet) 223 133-450 [facility] StephenvilleDchgsiwFDMRNMGFBX8096-90-12 14:26:00 Test Item Value Reference Range Interpretation Comments MCHC (test code = MCHC) 35.0 32.0-36.0 [facility]villeEptlxgqYVDACFWFZR8171-75-98 14:26:00 Test Item Value Reference Range Interpretation Comments INR (test code = INR) 0.93 0.85-1.17 [facility] StephenvilleHclzmmrUBICMHDGSM2371-53-05 14:26:00 Test Item Value Reference Range Interpretation Comments PT (test code = PT) 12.4 s 12.0-14.7 [facility]2014-09-22 14:26:00 Test Item Value Reference Range Interpretation Comments BUN (test code = BUN) 8 7-22 [facility]2014-09-22 14:26:00 Test Item Value Reference Range Interpretation Comments Glucose Lvl (test code = Glucose Lvl) 91 70-99 [facility]2014-09-22 14:26:00 Test Item Value Reference Range Interpretation Comments CO2 (test code = CO2) 29 24-32 [facility]2014-09-22 14:26:00 Test Item Value Reference Range Interpretation Comments AGAP (test code = AGAP) 6.7 10.0-20.0 [facility]2014-09-22 14:26:00 Test Item Value Reference Range Interpretation Comments eGFR (test code = eGFR) 86 [facility]2014-09-22 14:26:00 Test Item Value Reference Range Interpretation Comments Creatinine Lvl (test code = Creatinine 0.8 0.5-1.4 Lvl) [facility]2014-09-22 14:26:00 Test Item Value Reference Range Interpretation Comments Chloride Lvl (test code = Chloride Lvl) 104 95-109 [facility]2014-09-22 14:26:00 Test Item Value Reference Range Interpretation Comments Potassium Lvl (test code = Potassium 3.7 3.5-5.1 Lvl) [facility]2014-09-22 14:26:00 Test Item Value Reference Range Interpretation Comments Sodium Lvl (test code = Sodium Lvl) 136 135-145 [facility]2014-09-22 14:26:00 Test Item Value Reference Range Interpretation Comments Calcium Lvl (test code = Calcium Lvl) 9.7 8.5-10.5 [facility]villeHwldczcURSKTWLDKO7490-17-86 14:26:00 Test Item Value Reference Range Interpretation Comments MCV (test code = MCV) 101.6 80.0-98.0 [facility] StephenvilleIxofiqwWFVTIVALZF8423-08-67 14:26:00 Test Item Value Reference Range Interpretation Comments MCH (test code = MCH) 35.5 pg 27.0-31.0 [facility] [place]villeImhfmbmFCURCLMGNL8979-98-01 14:26:00 Test Item Value Reference Range Interpretation Comments Hgb (test code = Hgb) 13.3 12.0-16.0 [place] [address]-09-22 14:26:00 Test Item Value Reference Range Interpretation Comments Hct (test code = Hct) 37.9 36.0-48.0 [facility]villePticitjVVECZSTEEK0377-09-32 14:26:00 Test Item Value Reference Range Interpretation Comments RBC (test code = RBC) 3.73 4.20-5.40 [facility] StephenvilleUouchjaQOZAOOJCMM1253-73-82 14:26:00 Test Item Value Reference Range Interpretation Comments WBC (test code = WBC) 6.1 3.7-10.4 [facility]villeLzcuwmsIEQSJMTQOO0827-30-25 14:26:00 Test Item Value Reference Range Interpretation Comments MPV (test code = MPV) 8.0 7.4-10.4 [facility]villeXfraygtJHTLTJHOIX9105-11-52 14:26:00 Test Item Value Reference Range Interpretation Comments RDW (test code = RDW) 17.2 11.5-14.5 [facility] StephenvilleUlsvtodCUACTHFQWM8909-46-40 14:26:00 Test Item Value Reference Range Interpretation Comments Platelet (test code = Platelet) 223 133-450 [facility]villeKzgnfxjXWDLVZUCSV2013-76-69 14:26:00 Test Item Value Reference Range Interpretation Comments MCHC (test code = MCHC) 35.0 32.0-36.0 [facility] StephenvilleHyedtruROYEOPNVKE3402-79-31 14:26:00 Test Item Value Reference Range Interpretation Comments INR (test code = INR) 0.93 0.85-1.17 [facility]villePfbqwvsYIOLOEDAUW4521-19-84 14:26:00 Test Item Value Reference Range Interpretation Comments PT (test code = PT) 12.4 s 12.0-14.7 [facility]2014-09-22 14:26:00 Test Item Value Reference Range Interpretation Comments BUN (test code = BUN) 8 7-22 [facility]2014-09-22 14:26:00 Test Item Value Reference Range Interpretation Comments Glucose Lvl (test code = Glucose Lvl) 91 70-99 [facility]2014-09-22 14:26:00 Test Item Value Reference Range Interpretation Comments CO2 (test code = CO2) 29 24-32 [facility]2014-09-22 14:26:00 Test Item Value Reference Range Interpretation Comments AGAP (test code = AGAP) 6.7 10.0-20.0 [facility]2014-09-22 14:26:00 Test Item Value Reference Range Interpretation Comments eGFR (test code = eGFR) 86 [facility]2014-09-22 14:26:00 Test Item Value Reference Range Interpretation Comments Creatinine Lvl (test code = Creatinine 0.8 0.5-1.4 Lvl) [facility]2014-09-22 14:26:00 Test Item Value Reference Range Interpretation Comments Chloride Lvl (test code = Chloride Lvl) 104 95-109 [facility]2014-09-22 14:26:00 Test Item Value Reference Range Interpretation Comments Potassium Lvl (test code = Potassium 3.7 3.5-5.1 Lvl) [facility]2014-09-22 14:26:00 Test Item Value Reference Range Interpretation Comments Sodium Lvl (test code = Sodium Lvl) 136 135-145 [facility]2014-09-22 14:26:00 Test Item Value Reference Range Interpretation Comments Calcium Lvl (test code = Calcium Lvl) 9.7 8.5-10.5 [facility]villeDbwuyzvXJZFFVNPIE0999-86-19 14:26:00 Test Item Value Reference Range Interpretation Comments MCV (test code = MCV) 101.6 80.0-98.0 [facility]villeQvgbsgxUWHMJHVQXC8559-53-35 14:26:00 Test Item Value Reference Range Interpretation Comments MCH (test code = MCH) 35.5 pg 27.0-31.0 [facility]villeMxbusxyOMUDGUXZQS4568-85-86 14:26:00 Test Item Value Reference Range Interpretation Comments Hgb (test code = Hgb) 13.3 12.0-16.0 [facility]villeKvoqbpuWZQEGTLECL2367-28-69 14:26:00 Test Item Value Reference Range Interpretation Comments Hct (test code = Hct) 37.9 36.0-48.0 [facility]villeHrskcafOXGFWRPOZX8494-81-84 14:26:00 Test Item Value Reference Range Interpretation Comments RBC (test code = RBC) 3.73 4.20-5.40 [facility] [place]villeUzjjukzEDNKYTFCWE0466-11-69 14:26:00 Test Item Value Reference Range Interpretation Comments WBC (test code = WBC) 6.1 3.7-10.4 [facility] StephenvilleFasolodUVYCVTSDGO5910-48-71 14:26:00 Test Item Value Reference Range Interpretation Comments MPV (test code = MPV) 8.0 7.4-10.4 [facility]villeXowbjklFEEZIQITBC1551-53-08 14:26:00 Test Item Value Reference Range Interpretation Comments RDW (test code = RDW) 17.2 11.5-14.5 [facility]villeVekfvpxFRJUAXITRU3269-20-36 14:26:00 Test Item Value Reference Range Interpretation Comments Platelet (test code = Platelet) 223 133-450 [facility]villeXddukqhKYAWDBNVDR8016-71-73 14:26:00 Test Item Value Reference Range Interpretation Comments MCHC (test code = MCHC) 35.0 32.0-36.0 [facility]villeOejukvtWCUMAXKJNC4405-65-83 14:26:00 Test Item Value Reference Range Interpretation Comments INR (test code = INR) 0.93 0.85-1.17 [facility]villeLvrwrowKAOYEMDFLH8403-17-63 14:26:00 Test Item Value Reference Range Interpretation Comments PT (test code = PT) 12.4 s 12.0-14.7 [facility]2014-09-22 14:26:00 Test Item Value Reference Range Interpretation Comments BUN (test code = BUN) 8 7-22 [facility]2014-09-22 14:26:00 Test Item Value Reference Range Interpretation Comments Glucose Lvl (test code = Glucose Lvl) 91 70-99 [facility]2014-09-22 14:26:00 Test Item Value Reference Range Interpretation Comments CO2 (test code = CO2) 29 24-32 [facility]2014-09-22 14:26:00 Test Item Value Reference Range Interpretation Comments AGAP (test code = AGAP) 6.7 10.0-20.0 [facility]2014-09-22 14:26:00 Test Item Value Reference Range Interpretation Comments eGFR (test code = eGFR) 86 [facility]2014-09-22 14:26:00 Test Item Value Reference Range Interpretation Comments Creatinine Lvl (test code = Creatinine 0.8 0.5-1.4 Lvl) [facility]2014-09-22 14:26:00 Test Item Value Reference Range Interpretation Comments Chloride Lvl (test code = Chloride Lvl) 104 95-109 [facility]2014-09-22 14:26:00 Test Item Value Reference Range Interpretation Comments Potassium Lvl (test code = Potassium 3.7 3.5-5.1 Lvl) [facility]2014-09-22 14:26:00 Test Item Value Reference Range Interpretation Comments Sodium Lvl (test code = Sodium Lvl) 136 135-145 [facility]2014-09-22 14:26:00 Test Item Value Reference Range Interpretation Comments Calcium Lvl (test code = Calcium Lvl) 9.7 8.5-10.5 [facility]villeGrvsmwaLVAGQRJBWY3856-91-76 14:26:00 Test Item Value Reference Range Interpretation Comments MCV (test code = MCV) 101.6 80.0-98.0 [facility] StephenvilleZkndhkkRFYOMVNGSB7259-90-46 14:26:00 Test Item Value Reference Range Interpretation Comments MCH (test code = MCH) 35.5 pg 27.0-31.0 [facility] StephenvilleKykyavbDPXVMAINZP4601-39-39 14:26:00 Test Item Value Reference Range Interpretation Comments Hgb (test code = Hgb) 13.3 12.0-16.0 [facility]villeSvwfgfhXUYHIKXVVE9402-43-81 14:26:00 Test Item Value Reference Range Interpretation Comments Hct (test code = Hct) 37.9 36.0-48.0 [facility] StephenvilleYwsfgcbJHYVGDYBQP3990-17-42 14:26:00 Test Item Value Reference Range Interpretation Comments RBC (test code = RBC) 3.73 4.20-5.40 [facility] [place]villeSpjksenDOIQDUZCQQ7574-51-00 14:26:00 Test Item Value Reference Range Interpretation Comments WBC (test code = WBC) 6.1 3.7-10.4 [facility] StephenvilleDlkhohwQYCRECPUJI0570-67-25 14:26:00 Test Item Value Reference Range Interpretation Comments MPV (test code = MPV) 8.0 7.4-10.4 [facility] StephenvilleKlokjfiJUJEHXFDLF5579-64-73 14:26:00 Test Item Value Reference Range Interpretation Comments RDW (test code = RDW) 17.2 11.5-14.5 [facility]villeScdsuvxWZFBSBMNBK6364-12-46 14:26:00 Test Item Value Reference Range Interpretation Comments Platelet (test code = Platelet) 223 133-450 [facility] StephenvilleMnthbtrYTDDGLEICK7888-51-64 14:26:00 Test Item Value Reference Range Interpretation Comments MCHC (test code = MCHC) 35.0 32.0-36.0 [facility] StephenvilleWfjiswqZTQTCSKABT2386-88-67 14:26:00 Test Item Value Reference Range Interpretation Comments INR (test code = INR) 0.93 0.85-1.17 [facility] StephenvilleTozhpnlCDTDVNGZYW8327-15-88 14:26:00 Test Item Value Reference Range Interpretation Comments PT (test code = PT) 12.4 s 12.0-14.7 [facility]2014-09-22 14:26:00 Test Item Value Reference Range Interpretation Comments BUN (test code = BUN) 8 7- [facility]2014-09-22 14:26:00 Test Item Value Reference Range Interpretation Comments Glucose Lvl (test code = Glucose Lvl) 91 70-99 [facility]2014-09-22 14:26:00 Test Item Value Reference Range Interpretation Comments CO2 (test code = CO2) 29 24-32 [facility]2014-09-22 14:26:00 Test Item Value Reference Range Interpretation Comments AGAP (test code = AGAP) 6.7 10.0-20.0 [facility]2014-09-22 14:26:00 Test Item Value Reference Range Interpretation Comments eGFR (test code = eGFR) 86 [facility]2014-09-22 14:26:00 Test Item Value Reference Range Interpretation Comments Creatinine Lvl (test code = Creatinine 0.8 0.5-1.4 Lvl) [facility]2014-09-22 14:26:00 Test Item Value Reference Range Interpretation Comments Chloride Lvl (test code = Chloride Lvl) 104 95-109 [facility]2014-09-22 14:26:00 Test Item Value Reference Range Interpretation Comments Potassium Lvl (test code = Potassium 3.7 3.5-5.1 Lvl) [facility]2014-09-22 14:26:00 Test Item Value Reference Range Interpretation Comments Sodium Lvl (test code = Sodium Lvl) 136 135-145 [facility]2014-09-22 14:26:00 Test Item Value Reference Range Interpretation Comments Calcium Lvl (test code = Calcium Lvl) 9.7 8.5-10.5 [facility] StephenvilleEozhubdSHTDYAZYTN4355-05-91 14:26:00 Test Item Value Reference Range Interpretation Comments MCV (test code = MCV) 101.6 80.0-98.0 [facility] StephenvilleByklexrSFKEMVRZKW8579-86-19 14:26:00 Test Item Value Reference Range Interpretation Comments MCH (test code = MCH) 35.5 pg 27.0-31.0 [facility] StephenvilleCpvpkztOUERRQEQSX9995-27-01 14:26:00 Test Item Value Reference Range Interpretation Comments Hgb (test code = Hgb) 13.3 12.0-16.0 [facility] StephenvilleEsdhckjZVIPKPCOON8935-92-37 14:26:00 Test Item Value Reference Range Interpretation Comments Hct (test code = Hct) 37.9 36.0-48.0 [facility] StephenvilleBahnjwgNIRLIECJVB6019-82-21 14:26:00 Test Item Value Reference Range Interpretation Comments RBC (test code = RBC) 3.73 4.20-5.40 [facility] StephenvilleBfyrucnKHAFTYAYRD3521-05-75 14:26:00 Test Item Value Reference Range Interpretation Comments WBC (test code = WBC) 6.1 3.7-10.4 [facility] StephenvilleDqkxdkrQXRFZPOXPJ3325-91-97 14:26:00 Test Item Value Reference Range Interpretation Comments MPV (test code = MPV) 8.0 7.4-10.4 [facility] StephenvilleTeregoxOMKQDPMITR6365-48-77 14:26:00 Test Item Value Reference Range Interpretation Comments RDW (test code = RDW) 17.2 11.5-14.5 [facility] [place]villeFnudftmXJOLTWCOTN6412-87-00 14:26:00 Test Item Value Reference Range Interpretation Comments Platelet (test code = Platelet) 223 133-450 [facility] StephenvilleVlbqaynBSAHGFEWPN4455-15-77 14:26:00 Test Item Value Reference Range Interpretation Comments MCHC (test code = MCHC) 35.0 32.0-36.0 [facility] StephenvilleHytmqkhCGZJEXCSAX4928-96-68 14:26:00 Test Item Value Reference Range Interpretation Comments INR (test code = INR) 0.93 0.85-1.17 [facility] StephenvilleXziatihQCXDLMAYBV1486-10-20 14:26:00 Test Item Value Reference Range Interpretation Comments PT (test code = PT) 12.4 s 12.0-14.7 [facility]2014-09-22 14:26:00 Test Item Value Reference Range Interpretation Comments BUN (test code = BUN) 8 7-22 [facility]2014-09-22 14:26:00 Test Item Value Reference Range Interpretation Comments Glucose Lvl (test code = Glucose Lvl) 91 70-99 [facility]2014-09-22 14:26:00 Test Item Value Reference Range Interpretation Comments CO2 (test code = CO2) 29 24-32 [facility]2014-09-22 14:26:00 Test Item Value Reference Range Interpretation Comments AGAP (test code = AGAP) 6.7 10.0-20.0 [facility]2014-09-22 14:26:00 Test Item Value Reference Range Interpretation Comments eGFR (test code = eGFR) 86 [facility]2014-09-22 14:26:00 Test Item Value Reference Range Interpretation Comments Creatinine Lvl (test code = Creatinine 0.8 0.5-1.4 Lvl) [facility]2014-09-22 14:26:00 Test Item Value Reference Range Interpretation Comments Chloride Lvl (test code = Chloride Lvl) 104 95-109 [facility]2014-09-22 14:26:00 Test Item Value Reference Range Interpretation Comments Potassium Lvl (test code = Potassium 3.7 3.5-5.1 Lvl) [facility]2014-09-22 14:26:00 Test Item Value Reference Range Interpretation Comments Sodium Lvl (test code = Sodium Lvl) 136 135-145 [facility]2014-09-22 14:26:00 Test Item Value Reference Range Interpretation Comments Calcium Lvl (test code = Calcium Lvl) 9.7 8.5-10.5 [facility]villeXhgppfiSABAZDSYIA1504-35-87 14:26:00 Test Item Value Reference Range Interpretation Comments MCV (test code = MCV) 101.6 80.0-98.0 [facility]villeXpdhahgKNSNOWCCSW2964-38-96 14:26:00 Test Item Value Reference Range Interpretation Comments MCH (test code = MCH) 35.5 pg 27.0-31.0 [facility] StephenvilleOmzdifgILLAFXYHHS7016-79-95 14:26:00 Test Item Value Reference Range Interpretation Comments Hgb (test code = Hgb) 13.3 12.0-16.0 [facility] StephenvilleRlszkrpKWGBCLMKBA0852-58-59 14:26:00 Test Item Value Reference Range Interpretation Comments Hct (test code = Hct) 37.9 36.0-48.0 [facility]villeOexwnfvLCUFWRSBHV5104-87-16 14:26:00 Test Item Value Reference Range Interpretation Comments RBC (test code = RBC) 3.73 4.20-5.40 [facility]villeKhsrrwbMMQFZKPHJA4030-94-44 14:26:00 Test Item Value Reference Range Interpretation Comments WBC (test code = WBC) 6.1 3.7-10.4 [place] [address]-09-22 14:26:00 Test Item Value Reference Range Interpretation Comments MPV (test code = MPV) 8.0 7.4-10.4 [facility]villePrcmimrGZZOPOUOAI4695-99-00 14:26:00 Test Item Value Reference Range Interpretation Comments RDW (test code = RDW) 17.2 11.5-14.5 [facility] [place]villeXhmqostUPPYSNNCHF1915-71-14 14:26:00 Test Item Value Reference Range Interpretation Comments Platelet (test code = Platelet) 223 133-450 [facility] [place]GcfpkmaWTUKMAYVHA8180-07-97 14:26:00 Test Item Value Reference Range Interpretation Comments MCHC (test code = MCHC) 35.0 32.0-36.0 [facility] [place]villeYadoqjpPNLMZVHNDF1183-13-38 14:26:00 Test Item Value Reference Range Interpretation Comments INR (test code = INR) 0.93 0.85-1.17 [facility] [place]villeAosxdtcQHKGGNBPQE9731-58-78 14:26:00 Test Item Value Reference Range Interpretation Comments PT (test code = PT) 12.4 s 12.0-14.7 [facility]2014-09-22 14:26:00 Test Item Value Reference Range Interpretation Comments BUN (test code = BUN) 8 7-22 [facility]2014-09-22 14:26:00 Test Item Value Reference Range Interpretation Comments Glucose Lvl (test code = Glucose Lvl) 91 70-99 [facility]2014-09-22 14:26:00 Test Item Value Reference Range Interpretation Comments CO2 (test code = CO2) 29 24-32 [facility]2014-09-22 14:26:00 Test Item Value Reference Range Interpretation Comments AGAP (test code = AGAP) 6.7 10.0-20.0 [facility]2014-09-22 14:26:00 Test Item Value Reference Range Interpretation Comments eGFR (test code = eGFR) 86 [facility]2014-09-22 14:26:00 Test Item Value Reference Range Interpretation Comments Creatinine Lvl (test code = Creatinine 0.8 0.5-1.4 Lvl) [facility]2014-09-22 14:26:00 Test Item Value Reference Range Interpretation Comments Chloride Lvl (test code = Chloride Lvl) 104 95-109 [place] 538464-09-22 14:26:00 Test Item Value Reference Range Interpretation Comments Potassium Lvl (test code = Potassium 3.7 3.5-5.1 Lvl) [facility]2014-09-22 14:26:00 Test Item Value Reference Range Interpretation Comments Sodium Lvl (test code = Sodium Lvl) 136 135-145 [facility]2014-09-22 14:26:00 Test Item Value Reference Range Interpretation Comments Calcium Lvl (test code = Calcium Lvl) 9.7 8.5-10.5 [facility] StephenvilleHipiaewHCPIPIKEOZ0147-40-36 14:26:00 Test Item Value Reference Range Interpretation Comments MCV (test code = MCV) 101.6 80.0-98.0 [facility] StephenvilleWokfjoqBPEGPPDVVO1604-12-55 14:26:00 Test Item Value Reference Range Interpretation Comments MCH (test code = MCH) 35.5 pg 27.0-31.0 [facility] StephenvilleIdajpezHKUOFOXQLJ5307-44-35 14:26:00 Test Item Value Reference Range Interpretation Comments Hgb (test code = Hgb) 13.3 12.0-16.0 [facility] StephenvilleDzavrbfEQCBXQGRRC1955-80-04 14:26:00 Test Item Value Reference Range Interpretation Comments Hct (test code = Hct) 37.9 36.0-48.0 [facility] StephenvilleIvainceLDRGYAIGUP6407-87-83 14:26:00 Test Item Value Reference Range Interpretation Comments RBC (test code = RBC) 3.73 4.20-5.40 [facility] StephenvilleLbbndcxQCKUXQTXLI5772-06-20 14:26:00 Test Item Value Reference Range Interpretation Comments WBC (test code = WBC) 6.1 3.7-10.4 [facility] StephenvilleZxyyrmoXGOVOTDZHX4144-28-29 14:26:00 Test Item Value Reference Range Interpretation Comments MPV (test code = MPV) 8.0 7.4-10.4 [facility] StephenvilleGfahyakOQBRNHGJBG8350-09-65 14:26:00 Test Item Value Reference Range Interpretation Comments RDW (test code = RDW) 17.2 11.5-14.5 [facility] StephenvilleRdmjowxKTJTFVPUWU7682-84-89 14:26:00 Test Item Value Reference Range Interpretation Comments Platelet (test code = Platelet) 223 133-450 [facility] StephenvilleRqhdpvbARMKELZXCO3284-19-64 14:26:00 Test Item Value Reference Range Interpretation Comments MCHC (test code = MCHC) 35.0 32.0-36.0 [facility] StephenvilleUolilbyMSYLJJNAFF7171-67-75 14:26:00 Test Item Value Reference Range Interpretation Comments INR (test code = INR) 0.93 0.85-1.17 [facility] StephenvilleBtasylyGENIQXZOXF8763-13-34 14:26:00 Test Item Value Reference Range Interpretation Comments PT (test code = PT) 12.4 s 12.0-14.7 [facility]2014-09-22 14:26:00 Test Item Value Reference Range Interpretation Comments BUN (test code = BUN) 8 - [facility]2014-09-22 14:26:00 Test Item Value Reference Range Interpretation Comments Glucose Lvl (test code = Glucose Lvl) 91 70-99 [facility]2014-09-22 14:26:00 Test Item Value Reference Range Interpretation Comments CO2 (test code = CO2) 29 24-32 [facility]2014-09-22 14:26:00 Test Item Value Reference Range Interpretation Comments AGAP (test code = AGAP) 6.7 10.0-20.0 [facility]2014-09-22 14:26:00 Test Item Value Reference Range Interpretation Comments eGFR (test code = eGFR) 86 [facility]2014-09-22 14:26:00 Test Item Value Reference Range Interpretation Comments Creatinine Lvl (test code = Creatinine 0.8 0.5-1.4 Lvl) [facility]2014-09-22 14:26:00 Test Item Value Reference Range Interpretation Comments Chloride Lvl (test code = Chloride Lvl) 104 95-109 [facility]2014-09-22 14:26:00 Test Item Value Reference Range Interpretation Comments Potassium Lvl (test code = Potassium 3.7 3.5-5.1 Lvl) [facility]2014-09-22 14:26:00 Test Item Value Reference Range Interpretation Comments Sodium Lvl (test code = Sodium Lvl) 136 135-145 [facility]2014-09-22 14:26:00 Test Item Value Reference Range Interpretation Comments Calcium Lvl (test code = Calcium Lvl) 9.7 8.5-10.5 [facility] StephenvilleLdmrqqpEBHQXAQUQY2579-61-99 14:26:00 Test Item Value Reference Range Interpretation Comments MCV (test code = MCV) 101.6 80.0-98.0 [facility] StephenvilleVulhupiBEEXYHZGUR0626-41-90 14:26:00 Test Item Value Reference Range Interpretation Comments MCH (test code = MCH) 35.5 pg 27.0-31.0 [facility] StephenvilleJpdxnddDPVJCVSVWO8567-22-93 14:26:00 Test Item Value Reference Range Interpretation Comments Hgb (test code = Hgb) 13.3 12.0-16.0 [facility] StephenvilleSeefbyrXYJSBJCRPK5409-17-17 14:26:00 Test Item Value Reference Range Interpretation Comments Hct (test code = Hct) 37.9 36.0-48.0 [facility] StephenvilleFhugtgqBTCPVANXJI9663-45-83 14:26:00 Test Item Value Reference Range Interpretation Comments RBC (test code = RBC) 3.73 4.20-5.40 [facility] StephenvilleXofbdcsIFGNSWHDRK9967-70-99 14:26:00 Test Item Value Reference Range Interpretation Comments WBC (test code = WBC) 6.1 3.7-10.4 [facility] StephenvilleRkkgtksKDARFCTMNI3671-35-03 14:26:00 Test Item Value Reference Range Interpretation Comments MPV (test code = MPV) 8.0 7.4-10.4 [facility] StephenvilleSgkrtwnLZPVGGSEGL7679-37-28 14:26:00 Test Item Value Reference Range Interpretation Comments RDW (test code = RDW) 17.2 11.5-14.5 [facility] StephenvilleBeeizskJDAUNXCUZQ2923-56-00 14:26:00 Test Item Value Reference Range Interpretation Comments Platelet (test code = Platelet) 223 133-450 [facility] StephenvilleAjsqdeuSRMBKPCWSX2721-62-01 14:26:00 Test Item Value Reference Range Interpretation Comments MCHC (test code = MCHC) 35.0 32.0-36.0 [facility] StephenvilleLkjjosgYJXJFISKCF0737-55-58 14:26:00 Test Item Value Reference Range Interpretation Comments INR (test code = INR) 0.93 0.85-1.17 [facility] StephenvilleZdngsfpRLSFJLJFVH5960-71-60 14:26:00 Test Item Value Reference Range Interpretation Comments PT (test code = PT) 12.4 s 12.0-14.7 [facility]2014-09-22 14:26:00 Test Item Value Reference Range Interpretation Comments BUN (test code = BUN) 8 7-22 [facility]2014-09-22 14:26:00 Test Item Value Reference Range Interpretation Comments Glucose Lvl (test code = Glucose Lvl) 91 70-99 [facility]2014-09-22 14:26:00 Test Item Value Reference Range Interpretation Comments CO2 (test code = CO2) 29 24-32 [facility]2014-09-22 14:26:00 Test Item Value Reference Range Interpretation Comments AGAP (test code = AGAP) 6.7 10.0-20.0 [facility]2014-09-22 14:26:00 Test Item Value Reference Range Interpretation Comments eGFR (test code = eGFR) 86 [facility]2014-09-22 14:26:00 Test Item Value Reference Range Interpretation Comments Creatinine Lvl (test code = Creatinine 0.8 0.5-1.4 Lvl) [facility]2014-09-22 14:26:00 Test Item Value Reference Range Interpretation Comments Chloride Lvl (test code = Chloride Lvl) 104 95-109 [facility]2014-09-22 14:26:00 Test Item Value Reference Range Interpretation Comments Potassium Lvl (test code = Potassium 3.7 3.5-5.1 Lvl) [facility]2014-09-22 14:26:00 Test Item Value Reference Range Interpretation Comments Sodium Lvl (test code = Sodium Lvl) 136 135-145 [facility]2014-09-22 14:26:00 Test Item Value Reference Range Interpretation Comments Calcium Lvl (test code = Calcium Lvl) 9.7 8.5-10.5 [facility] StephenvilleRfrtawlSYKMCDWSXE6180-99-18 14:26:00 Test Item Value Reference Range Interpretation Comments MCV (test code = MCV) 101.6 80.0-98.0 [facility] StephenvilleEbycuciRBPDZIFMUA0543-92-66 14:26:00 Test Item Value Reference Range Interpretation Comments MCH (test code = MCH) 35.5 pg 27.0-31.0 [facility] StephenvilleHysmggxEZPTVSHNOC0780-12-55 14:26:00 Test Item Value Reference Range Interpretation Comments Hgb (test code = Hgb) 13.3 12.0-16.0 [facility] [place]villeOpsqrgbTTRPVTZBVQ9533-55-69 14:26:00 Test Item Value Reference Range Interpretation Comments Hct (test code = Hct) 37.9 36.0-48.0 [facility] StephenvilleZrkivfoNHLIZKAGAY5697-08-32 14:26:00 Test Item Value Reference Range Interpretation Comments RBC (test code = RBC) 3.73 4.20-5.40 [facility] StephenvilleTyiyymzHRFSMTXNYI1836-20-42 14:26:00 Test Item Value Reference Range Interpretation Comments WBC (test code = WBC) 6.1 3.7-10.4 [facility] StephenvilleQgulbqwLOAYBXDLUA2181-28-10 14:26:00 Test Item Value Reference Range Interpretation Comments MPV (test code = MPV) 8.0 7.4-10.4 [facility] StephenvilleSkvvdqlVHZRTFQMAT0161-15-41 14:26:00 Test Item Value Reference Range Interpretation Comments RDW (test code = RDW) 17.2 11.5-14.5 [facility] StephenvillePwpuyziJQJSMFMBEF2293-49-38 14:26:00 Test Item Value Reference Range Interpretation Comments Platelet (test code = Platelet) 223 133-450 [facility] StephenvilleMuzqaweHPUUFXSEFX7060-18-70 14:26:00 Test Item Value Reference Range Interpretation Comments MCHC (test code = MCHC) 35.0 32.0-36.0 [facility] StephenvilleEqxspraOTSGFCATKV7611-66-28 14:26:00 Test Item Value Reference Range Interpretation Comments INR (test code = INR) 0.93 0.85-1.17 [facility] StephenvilleCcofoucKGOPCYIOHH9422-96-18 14:26:00 Test Item Value Reference Range Interpretation Comments PT (test code = PT) 12.4 s 12.0-14.7 [facility]2014-09-22 14:26:00 Test Item Value Reference Range Interpretation Comments BUN (test code = BUN) 8 7-22 [facility]2014-09-22 14:26:00 Test Item Value Reference Range Interpretation Comments Glucose Lvl (test code = Glucose Lvl) 91 70-99 [facility]2014-09-22 14:26:00 Test Item Value Reference Range Interpretation Comments CO2 (test code = CO2) 29 24-32 [facility]2014-09-22 14:26:00 Test Item Value Reference Range Interpretation Comments AGAP (test code = AGAP) 6.7 10.0-20.0 [place] 538464-09-22 14:26:00 Test Item Value Reference Range Interpretation Comments eGFR (test code = eGFR) 86 [facility]2014-09-22 14:26:00 Test Item Value Reference Range Interpretation Comments Creatinine Lvl (test code = Creatinine 0.8 0.5-1.4 Lvl) [facility]2014-09-22 14:26:00 Test Item Value Reference Range Interpretation Comments Chloride Lvl (test code = Chloride Lvl) 104 95-109 [facility]2014-09-22 14:26:00 Test Item Value Reference Range Interpretation Comments Potassium Lvl (test code = Potassium 3.7 3.5-5.1 Lvl) [facility]2014-09-22 14:26:00 Test Item Value Reference Range Interpretation Comments Sodium Lvl (test code = Sodium Lvl) 136 135-145 [facility]2014-09-22 14:26:00 Test Item Value Reference Range Interpretation Comments Calcium Lvl (test code = Calcium Lvl) 9.7 8.5-10.5 [facility] StephenvilleHdbqyzwCXMAEHWCWE2703-14-90 14:26:00 Test Item Value Reference Range Interpretation Comments MCV (test code = MCV) 101.6 80.0-98.0 [facility] [place]villeGddrxuuATAAIRFRET9059-99-11 14:26:00 Test Item Value Reference Range Interpretation Comments MCH (test code = MCH) 35.5 pg 27.0-31.0 [facility] StephenvilleVaeqrgbXIFLTQDBKP1336-53-44 14:26:00 Test Item Value Reference Range Interpretation Comments Hgb (test code = Hgb) 13.3 12.0-16.0 [facility] StephenvilleCklhdgfUMWWJBWHJG2462-90-34 14:26:00 Test Item Value Reference Range Interpretation Comments Hct (test code = Hct) 37.9 36.0-48.0 [facility] [place]villeSrewblgXDXTKYLTRP0828-55-23 14:26:00 Test Item Value Reference Range Interpretation Comments RBC (test code = RBC) 3.73 4.20-5.40 [facility] StephenvilleSxxeijkOFPLIAKKNR0425-68-76 14:26:00 Test Item Value Reference Range Interpretation Comments WBC (test code = WBC) 6.1 3.7-10.4 [facility] StephenvilleQurksluJBJODLQRXG2153-57-94 14:26:00 Test Item Value Reference Range Interpretation Comments MPV (test code = MPV) 8.0 7.4-10.4 [facility] StephenvilleVhksxdmKDEODIZTOO7201-83-04 14:26:00 Test Item Value Reference Range Interpretation Comments RDW (test code = RDW) 17.2 11.5-14.5 [facility] StephenvilleObsdrxrVRESYHZJEE7728-84-39 14:26:00 Test Item Value Reference Range Interpretation Comments Platelet (test code = Platelet) 223 133-450 [facility] StephenvillePgbrnuuOVIIRBPHYB2827-74-51 14:26:00 Test Item Value Reference Range Interpretation Comments MCHC (test code = MCHC) 35.0 32.0-36.0 [facility] StephenvilleIcxeunwXFXRLNDKYV6757-21-94 14:26:00 Test Item Value Reference Range Interpretation Comments INR (test code = INR) 0.93 0.85-1.17 [facility] StephenvilleHlvfvxbONGFLCGZIM2607-93-19 14:26:00 Test Item Value Reference Range Interpretation Comments PT (test code = PT) 12.4 s 12.0-14.7 [facility]2014-09-22 14:26:00 Test Item Value Reference Range Interpretation Comments BUN (test code = BUN) 8 7-22 [facility]2014-09-22 14:26:00 Test Item Value Reference Range Interpretation Comments Glucose Lvl (test code = Glucose Lvl) 91 70-99 [facility]2014-09-22 14:26:00 Test Item Value Reference Range Interpretation Comments CO2 (test code = CO2) 29 24-32 [facility]2014-09-22 14:26:00 Test Item Value Reference Range Interpretation Comments AGAP (test code = AGAP) 6.7 10.0-20.0 [facility]2014-09-22 14:26:00 Test Item Value Reference Range Interpretation Comments eGFR (test code = eGFR) 86 [facility]2014-09-22 14:26:00 Test Item Value Reference Range Interpretation Comments Creatinine Lvl (test code = Creatinine 0.8 0.5-1.4 Lvl) [facility]2014-09-22 14:26:00 Test Item Value Reference Range Interpretation Comments Chloride Lvl (test code = Chloride Lvl) 104 95-109 [facility]2014-09-22 14:26:00 Test Item Value Reference Range Interpretation Comments Potassium Lvl (test code = Potassium 3.7 3.5-5.1 Lvl) [facility]2014-09-22 14:26:00 Test Item Value Reference Range Interpretation Comments Sodium Lvl (test code = Sodium Lvl) 136 135-145 [facility]2014-09-22 14:26:00 Test Item Value Reference Range Interpretation Comments Calcium Lvl (test code = Calcium Lvl) 9.7 8.5-10.5 [facility] StephenvilleAyaqkqzGCKZQQBAAP2300-84-52 14:26:00 Test Item Value Reference Range Interpretation Comments MCV (test code = MCV) 101.6 80.0-98.0 [facility] StephenvilleIhbvkmaOCINBVXJQE7779-56-48 14:26:00 Test Item Value Reference Range Interpretation Comments MCH (test code = MCH) 35.5 pg 27.0-31.0 [facility] StephenvilleUsdglucDSFCZYPTLJ6952-99-24 14:26:00 Test Item Value Reference Range Interpretation Comments Hgb (test code = Hgb) 13.3 12.0-16.0 [facility] StephenvilleVkdejidWYGREEUHTR6983-57-94 14:26:00 Test Item Value Reference Range Interpretation Comments Hct (test code = Hct) 37.9 36.0-48.0 [facility] StephenvilleWibbuiyMUOTIEFKTZ5873-16-73 14:26:00 Test Item Value Reference Range Interpretation Comments RBC (test code = RBC) 3.73 4.20-5.40 [facility] StephenvilleLxzgcpaHTPSJLQDNI9190-37-17 14:26:00 Test Item Value Reference Range Interpretation Comments WBC (test code = WBC) 6.1 3.7-10.4 [facility] StephenvilleSmehzrzMRUEJCKGJU3495-58-13 14:26:00 Test Item Value Reference Range Interpretation Comments MPV (test code = MPV) 8.0 7.4-10.4 [facility] StephenvilleFrnzczeFLMVYTFODK6740-36-54 14:26:00 Test Item Value Reference Range Interpretation Comments RDW (test code = RDW) 17.2 11.5-14.5 [facility] StephenvilleZzvjayeHBEQCHYKQD6274-32-55 14:26:00 Test Item Value Reference Range Interpretation Comments Platelet (test code = Platelet) 223 133-450 [facility] StephenvilleSdvdhmcEJUMYPPUPR9683-68-88 14:26:00 Test Item Value Reference Range Interpretation Comments MCHC (test code = MCHC) 35.0 32.0-36.0 [facility] StephenvilleKfdafwlWATPOBXJFM8458-56-26 14:26:00 Test Item Value Reference Range Interpretation Comments INR (test code = INR) 0.93 0.85-1.17 [facility] StephenvilleZbryoqrAMVFMWJJCI5912-59-67 14:26:00 Test Item Value Reference Range Interpretation Comments PT (test code = PT) 12.4 s 12.0-14.7 [facility]2014-09-22 14:26:00 Test Item Value Reference Range Interpretation Comments BUN (test code = BUN) 8 - [facility]2014-09-22 14:26:00 Test Item Value Reference Range Interpretation Comments Glucose Lvl (test code = Glucose Lvl) 91 70-99 [facility]2014-09-22 14:26:00 Test Item Value Reference Range Interpretation Comments CO2 (test code = CO2) 29 24-32 [facility]2014-09-22 14:26:00 Test Item Value Reference Range Interpretation Comments AGAP (test code = AGAP) 6.7 10.0-20.0 [facility]2014-09-22 14:26:00 Test Item Value Reference Range Interpretation Comments eGFR (test code = eGFR) 86 [facility]2014-09-22 14:26:00 Test Item Value Reference Range Interpretation Comments Creatinine Lvl (test code = Creatinine 0.8 0.5-1.4 Lvl) [facility]2014-09-22 14:26:00 Test Item Value Reference Range Interpretation Comments Chloride Lvl (test code = Chloride Lvl) 104 95-109 [facility]2014-09-22 14:26:00 Test Item Value Reference Range Interpretation Comments Potassium Lvl (test code = Potassium 3.7 3.5-5.1 Lvl) [facility]2014-09-22 14:26:00 Test Item Value Reference Range Interpretation Comments Sodium Lvl (test code = Sodium Lvl) 136 135-145 [facility]2014-09-22 14:26:00 Test Item Value Reference Range Interpretation Comments Calcium Lvl (test code = Calcium Lvl) 9.7 8.5-10.5 [facility] StephenvilleBwxhjuiIZXQCQQERK1437-51-25 14:26:00 Test Item Value Reference Range Interpretation Comments MCV (test code = MCV) 101.6 80.0-98.0 [facility] StephenvilleMdzeodsGMTNIDLWKX4451-25-36 14:26:00 Test Item Value Reference Range Interpretation Comments MCH (test code = MCH) 35.5 pg 27.0-31.0 [facility] StephenvilleOuhaqysJFTBIGURZE3026-44-89 14:26:00 Test Item Value Reference Range Interpretation Comments Hgb (test code = Hgb) 13.3 12.0-16.0 [facility] StephenvilleUsnvdljPCRFOCYRRV8424-02-91 14:26:00 Test Item Value Reference Range Interpretation Comments Hct (test code = Hct) 37.9 36.0-48.0 [facility] StephenvilleKrvjiclNHBBGYQEWX6221-98-06 14:26:00 Test Item Value Reference Range Interpretation Comments RBC (test code = RBC) 3.73 4.20-5.40 [facility] StephenvilleDsngsjbPCXUMXMCFH6650-01-57 14:26:00 Test Item Value Reference Range Interpretation Comments WBC (test code = WBC) 6.1 3.7-10.4 [facility] StephenvilleOwyvbpjXTKBPYZFTO4750-50-82 14:26:00 Test Item Value Reference Range Interpretation Comments MPV (test code = MPV) 8.0 7.4-10.4 [facility] StephenvillePscdgslSJNRHKROKB6865-83-95 14:26:00 Test Item Value Reference Range Interpretation Comments RDW (test code = RDW) 17.2 11.5-14.5 [facility] StephenvilleBfgxrvjFBAMNXXUAM2770-80-39 14:26:00 Test Item Value Reference Range Interpretation Comments Platelet (test code = Platelet) 223 133-450 [facility] StephenvilleYiqbccjDHEJGMWVKE0862-76-11 14:26:00 Test Item Value Reference Range Interpretation Comments MCHC (test code = MCHC) 35.0 32.0-36.0 [facility] StephenvilleKfdudvlUPWMYDDWYV4287-16-06 14:26:00 Test Item Value Reference Range Interpretation Comments INR (test code = INR) 0.93 0.85-1.17 [facility] StephenvilleWwytnbdXTLRHNGURL8190-89-08 14:26:00 Test Item Value Reference Range Interpretation Comments PT (test code = PT) 12.4 s 12.0-14.7 [facility]2014-09-22 14:26:00 Test Item Value Reference Range Interpretation Comments BUN (test code = BUN) 8 7-22 [facility]2014-09-22 14:26:00 Test Item Value Reference Range Interpretation Comments Glucose Lvl (test code = Glucose Lvl) 91 70-99 [facility]2014-09-22 14:26:00 Test Item Value Reference Range Interpretation Comments CO2 (test code = CO2) 29 24-32 [facility]2014-09-22 14:26:00 Test Item Value Reference Range Interpretation Comments AGAP (test code = AGAP) 6.7 10.0-20.0 [facility]2014-09-22 14:26:00 Test Item Value Reference Range Interpretation Comments eGFR (test code = eGFR) 86 [facility]2014-09-22 14:26:00 Test Item Value Reference Range Interpretation Comments Creatinine Lvl (test code = Creatinine 0.8 0.5-1.4 Lvl) [facility]2014-09-22 14:26:00 Test Item Value Reference Range Interpretation Comments Chloride Lvl (test code = Chloride Lvl) 104 95-109 [facility]2014-09-22 14:26:00 Test Item Value Reference Range Interpretation Comments Potassium Lvl (test code = Potassium 3.7 3.5-5.1 Lvl) [facility]2014-09-22 14:26:00 Test Item Value Reference Range Interpretation Comments Sodium Lvl (test code = Sodium Lvl) 136 135-145 [facility] [facility] 14:[facility]:00 Test Item Value Reference Range Interpretation Comments Calcium Lvl (test code = Calcium Lvl) 9.7 8.5-10.5 [facility]villeHpbunziQXJOXDFNUW6515-95-99 14:26:00 Test Item Value Reference Range Interpretation Comments MCV (test code = MCV) 101.6 80.0-98.0 [facility]villeMtpmuhjCMFGOIEBLF5266-20-18 14:26:00 Test Item Value Reference Range Interpretation Comments MCH (test code = MCH) 35.5 pg 27.0-31.0 [facility]villeKwnvebzPJECOQMSUX4520-43-18 14:26:00 Test Item Value Reference Range Interpretation Comments Hgb (test code = Hgb) 13.3 12.0-16.0 [facility] StephenvilleZbltlglZTLBLMTQVP2274-72-75 14:26:00 Test Item Value Reference Range Interpretation Comments Hct (test code = Hct) 37.9 36.0-48.0 [facility]villeWjexrefGQQPBDISZL3246-69-82 14:26:00 Test Item Value Reference Range Interpretation Comments RBC (test code = RBC) 3.73 4.20-5.40 [facility]villeEzqkcbbZXNXXOLXOL9893-81-11 14:26:00 Test Item Value Reference Range Interpretation Comments WBC (test code = WBC) 6.1 3.7-10.4 [facility]villeEhzasstBIOCXJXBUX2735-54-66 14:26:00 Test Item Value Reference Range Interpretation Comments MPV (test code = MPV) 8.0 7.4-10.4 [facility]villeScbmgwxFGEBBCRDOX0457-67-30 14:26:00 Test Item Value Reference Range Interpretation Comments RDW (test code = RDW) 17.2 11.5-14.5 [facility]villePfsmqodIKFSKRYKHW8490-34-80 14:26:00 Test Item Value Reference Range Interpretation Comments Platelet (test code = Platelet) 223 133-450 [facility]villeOhmukjxDIETVXIABP8824-44-97 14:26:00 Test Item Value Reference Range Interpretation Comments MCHC (test code = MCHC) 35.0 32.0-36.0 [facility]villeVszyfmiWYVTVLVKWW6510-40-77 14:26:00 Test Item Value Reference Range Interpretation Comments INR (test code = INR) 0.93 0.85-1.17 [facility]villeTvxlyqmVXYBQEAFCC5502-26-47 14:26:00 Test Item Value Reference Range Interpretation Comments PT (test code = PT) 12.4 s 12.0-14.7 [facility]2014-09-22 14:26:00 Test Item Value Reference Range Interpretation Comments BUN (test code = BUN) 8 - [facility]2014-09-22 14:26:00 Test Item Value Reference Range Interpretation Comments Glucose Lvl (test code = Glucose Lvl) 91 70-99 [facility]2014-09-22 14:26:00 Test Item Value Reference Range Interpretation Comments CO2 (test code = CO2) 29 24-32 [facility]2014-09-22 14:26:00 Test Item Value Reference Range Interpretation Comments AGAP (test code = AGAP) 6.7 10.0-20.0 [facility]2014-09-22 14:26:00 Test Item Value Reference Range Interpretation Comments eGFR (test code = eGFR) 86 [facility]2014-09-22 14:26:00 Test Item Value Reference Range Interpretation Comments Creatinine Lvl (test code = Creatinine 0.8 0.5-1.4 Lvl) [facility]2014-09-22 14:26:00 Test Item Value Reference Range Interpretation Comments Chloride Lvl (test code = Chloride Lvl) 104 95-109 [facility]2014-09-22 14:26:00 Test Item Value Reference Range Interpretation Comments Potassium Lvl (test code = Potassium 3.7 3.5-5.1 Lvl) [facility]2014-09-22 14:26:00 Test Item Value Reference Range Interpretation Comments Sodium Lvl (test code = Sodium Lvl) 136 135-145 [facility]2014-09-22 14:26:00 Test Item Value Reference Range Interpretation Comments Calcium Lvl (test code = Calcium Lvl) 9.7 8.5-10.5 [facility]villeFrrdzrpMZYWSLTPNQ0006-05-53 14:26:00 Test Item Value Reference Range Interpretation Comments MCV (test code = MCV) 101.6 80.0-98.0 [facility] StephenvilleFdllultQGHTIFALKN5723-32-90 14:26:00 Test Item Value Reference Range Interpretation Comments MCH (test code = MCH) 35.5 pg 27.0-31.0 [facility] StephenvilleUxdfnwrBGDTIGHSZE5917-27-70 14:26:00 Test Item Value Reference Range Interpretation Comments Hgb (test code = Hgb) 13.3 12.0-16.0 [facility] StephenvillePruinigCZYRSOGZWH7403-37-66 14:26:00 Test Item Value Reference Range Interpretation Comments Hct (test code = Hct) 37.9 36.0-48.0 [place] 238064-09-22 14:26:00 Test Item Value Reference Range Interpretation Comments RBC (test code = RBC) 3.73 4.20-5.40 [facility] StephenvilleLhifvvoTNOWYPCPKP9135-21-63 14:26:00 Test Item Value Reference Range Interpretation Comments WBC (test code = WBC) 6.1 3.7-10.4 [facility]villeHumxubiHJQPVFMTOD1915-66-60 14:26:00 Test Item Value Reference Range Interpretation Comments MPV (test code = MPV) 8.0 7.4-10.4 [facility] StephenvilleCawuurzUBKDQDMBSV7941-19-43 14:26:00 Test Item Value Reference Range Interpretation Comments RDW (test code = RDW) 17.2 11.5-14.5 [facility]villeQqsdjlzIAHGUJTLKB2450-30-94 14:26:00 Test Item Value Reference Range Interpretation Comments Platelet (test code = Platelet) 223 133-450 [facility] StephenvilleRbtwnzqLAGLZFWKVF6464-92-29 14:26:00 Test Item Value Reference Range Interpretation Comments MCHC (test code = MCHC) 35.0 32.0-36.0 [facility] StephenvilleUhrdrnnKNFTJOQMJX2639-41-85 14:26:00 Test Item Value Reference Range Interpretation Comments INR (test code = INR) 0.93 0.85-1.17 [facility]villeSztuojyLTECHDMLEM6327-65-78 14:26:00 Test Item Value Reference Range Interpretation Comments PT (test code = PT) 12.4 s 12.0-14.7 [facility]2014-09-22 14:26:00 Test Item Value Reference Range Interpretation Comments BUN (test code = BUN) 8 7-22 [facility]2014-09-22 14:26:00 Test Item Value Reference Range Interpretation Comments Glucose Lvl (test code = Glucose Lvl) 91 70-99 [facility]2014-09-22 14:26:00 Test Item Value Reference Range Interpretation Comments CO2 (test code = CO2) 29 24-32 [facility]2014-09-22 14:26:00 Test Item Value Reference Range Interpretation Comments AGAP (test code = AGAP) 6.7 10.0-20.0 [facility]2014-09-22 14:26:00 Test Item Value Reference Range Interpretation Comments eGFR (test code = eGFR) 86 [facility]2014-09-22 14:26:00 Test Item Value Reference Range Interpretation Comments Creatinine Lvl (test code = Creatinine 0.8 0.5-1.4 Lvl) [facility]2014-09-22 14:26:00 Test Item Value Reference Range Interpretation Comments Chloride Lvl (test code = Chloride Lvl) 104 95-109 [facility]2014-09-22 14:26:00 Test Item Value Reference Range Interpretation Comments Potassium Lvl (test code = Potassium 3.7 3.5-5.1 Lvl) [facility]2014-09-22 14:26:00 Test Item Value Reference Range Interpretation Comments Sodium Lvl (test code = Sodium Lvl) 136 135-145 [facility]2014-09-22 14:26:00 Test Item Value Reference Range Interpretation Comments Calcium Lvl (test code = Calcium Lvl) 9.7 8.5-10.5 [facility]villeHpybujwWZTSIVDPVW9762-29-68 14:26:00 Test Item Value Reference Range Interpretation Comments MCV (test code = MCV) 101.6 80.0-98.0 [facility] StephenvilleCyzxofmRIMRURLUVT8575-78-65 14:26:00 Test Item Value Reference Range Interpretation Comments MCH (test code = MCH) 35.5 pg 27.0-31.0 [facility]villeKntdxumNEWWKXPMEM2924-67-92 14:26:00 Test Item Value Reference Range Interpretation Comments Hgb (test code = Hgb) 13.3 12.0-16.0 [facility] [place]villeIkxdwopMAJESHENJQ9667-29-39 14:26:00 Test Item Value Reference Range Interpretation Comments Hct (test code = Hct) 37.9 36.0-48.0 [facility]villeYopwmvxRESMWUEDXX8277-06-90 14:26:00 Test Item Value Reference Range Interpretation Comments RBC (test code = RBC) 3.73 4.20-5.40 [facility] StephenvilleRldqpehBUUPQMPRWW1172-96-00 14:26:00 Test Item Value Reference Range Interpretation Comments WBC (test code = WBC) 6.1 3.7-10.4 [facility]villeOaerxbyGDIXWNYIKR9466-72-31 14:26:00 Test Item Value Reference Range Interpretation Comments MPV (test code = MPV) 8.0 7.4-10.4 [facility]villePwqkgexSHIEEARAJH4290-46-12 14:26:00 Test Item Value Reference Range Interpretation Comments RDW (test code = RDW) 17.2 11.5-14.5 [facility]villeMnevegmRUGCIFVWPO3974-52-91 14:26:00 Test Item Value Reference Range Interpretation Comments Platelet (test code = Platelet) 223 133-450 [facility]villeBdwdvmiEIGJUXODCZ9268-75-13 14:26:00 Test Item Value Reference Range Interpretation Comments MCHC (test code = MCHC) 35.0 32.0-36.0 [facility]villeUgruhfuJKUOMPOPLD0007-25-68 14:26:00 Test Item Value Reference Range Interpretation Comments INR (test code = INR) 0.93 0.85-1.17 [facility]villeUwrursgCUKGECLONZ7419-29-41 14:26:00 Test Item Value Reference Range Interpretation Comments PT (test code = PT) 12.4 s 12.0-14.7 [facility]2014-09-22 14:26:00 Test Item Value Reference Range Interpretation Comments BUN (test code = BUN) 8 7- [facility]2014-09-22 14:26:00 Test Item Value Reference Range Interpretation Comments Glucose Lvl (test code = Glucose Lvl) 91 70-99 [facility]2014-09-22 14:26:00 Test Item Value Reference Range Interpretation Comments CO2 (test code = CO2) 29 24-32 [facility]2014-09-22 14:26:00 Test Item Value Reference Range Interpretation Comments AGAP (test code = AGAP) 6.7 10.0-20.0 [facility]2014-09-22 14:26:00 Test Item Value Reference Range Interpretation Comments eGFR (test code = eGFR) 86 [facility]2014-09-22 14:26:00 Test Item Value Reference Range Interpretation Comments Creatinine Lvl (test code = Creatinine 0.8 0.5-1.4 Lvl) [facility]2014-09-22 14:26:00 Test Item Value Reference Range Interpretation Comments Chloride Lvl (test code = Chloride Lvl) 104 95-109 [facility]2014-09-22 14:26:00 Test Item Value Reference Range Interpretation Comments Potassium Lvl (test code = Potassium 3.7 3.5-5.1 Lvl) [facility]2014-09-22 14:26:00 Test Item Value Reference Range Interpretation Comments Sodium Lvl (test code = Sodium Lvl) 136 135-145 [facility]2014-09-22 14:26:00 Test Item Value Reference Range Interpretation Comments Calcium Lvl (test code = Calcium Lvl) 9.7 8.5-10.5 [facility] StephenvilleIhgroghGZFWLCYWKC6532-80-70 14:26:00 Test Item Value Reference Range Interpretation Comments MCV (test code = MCV) 101.6 80.0-98.0 [facility] [place]villeGsybsudRFBZZKXZPE1046-10-78 14:26:00 Test Item Value Reference Range Interpretation Comments MCH (test code = MCH) 35.5 pg 27.0-31.0 [facility]villeIvgqyocOLQWYVMBXC4386-72-93 14:26:00 Test Item Value Reference Range Interpretation Comments Hgb (test code = Hgb) 13.3 12.0-16.0 [facility] StephenvilleCsulzhoAYALSLKRXA7008-67-76 14:26:00 Test Item Value Reference Range Interpretation Comments Hct (test code = Hct) 37.9 36.0-48.0 [facility]villeVthnompKOTEYNDCYX2756-19-92 14:26:00 Test Item Value Reference Range Interpretation Comments RBC (test code = RBC) 3.73 4.20-5.40 [facility]villeYxwfihfHJKYPPVXQM1050-79-39 14:26:00 Test Item Value Reference Range Interpretation Comments WBC (test code = WBC) 6.1 3.7-10.4 [facility]villeIpovsphCOEYRTTEOM9263-89-10 14:26:00 Test Item Value Reference Range Interpretation Comments MPV (test code = MPV) 8.0 7.4-10.4 [facility]villeUvmibtaIWVJUYSUGP0577-03-00 14:26:00 Test Item Value Reference Range Interpretation Comments RDW (test code = RDW) 17.2 11.5-14.5 [facility]villeOgvmoekXKIQTRJCZB9821-81-40 14:26:00 Test Item Value Reference Range Interpretation Comments Platelet (test code = Platelet) 223 133-450 [facility] StephenvilleKpkqcwhUPRJJLWBTX0262-05-19 14:26:00 Test Item Value Reference Range Interpretation Comments MCHC (test code = MCHC) 35.0 32.0-36.0 [facility]villeHzoglkdSJYASGHXMF3189-62-94 14:26:00 Test Item Value Reference Range Interpretation Comments INR (test code = INR) 0.93 0.85-1.17 [facility]villeMymduqbQMEWSSUKHF2530-90-19 14:26:00 Test Item Value Reference Range Interpretation Comments PT (test code = PT) 12.4 s 12.0-14.7 [facility]2014-05-07 09:42:00 Test Item Value Reference Range Interpretation Comments eGFR (test code = eGFR) 113 [facility] XJHES7510-06-69 09:42:00 Test Item Value Reference Range Interpretation Comments BUN (test code = BUN) 4 7-22 [facility]2014-05-07 09:42:00 Test Item Value Reference Range Interpretation Comments Potassium Lvl (test code = Potassium 3.8 3.5-5.1 Lvl) [facility]2014-05-07 09:42:00 Test Item Value Reference Range Interpretation Comments Creatinine Lvl (test code = Creatinine 0.5 0.5-1.4 Lvl) [place] 538464-05-07 09:42:00 Test Item Value Reference Range Interpretation Comments Glucose Lvl (test code = Glucose Lvl) 94 70-99 [place] 538464-05-07 09:42:00 Test Item Value Reference Range Interpretation Comments Sodium Lvl (test code = Sodium Lvl) 142 135-145 [facility]2014-05-07 09:42:00 Test Item Value Reference Range Interpretation Comments Calcium Lvl (test code = Calcium Lvl) 8.7 8.5-10.5 [facility]2014-05-07 09:42:00 Test Item Value Reference Range Interpretation Comments Chloride Lvl (test code = Chloride Lvl) 105 95-109 [facility]2014-05-07 09:42:00 Test Item Value Reference Range Interpretation Comments CO2 (test code = CO2) 30 24-32 [facility]2014-05-07 09:42:00 Test Item Value Reference Range Interpretation Comments AGAP (test code = AGAP) 10.8 10.0-20.0 [facility] StephenvilleWuioxylFBNJGTTMNQ7401-71-54 09:42:00 Test Item Value Reference Range Interpretation Comments WBC (test code = WBC) 4.4 3.7-10.4 [place] 238064-05-07 09:42:00 Test Item Value Reference Range Interpretation Comments RBC (test code = RBC) 3.80 4.20-5.40 [facility] StephenvilleLuyexqcYYDEGHXQIP4039-80-50 09:42:00 Test Item Value Reference Range Interpretation Comments MCH (test code = MCH) 31.1 pg 27.0-31.0 [facility] StephenvilleNhjaqyeDJADPEFCMC0509-23-70 09:42:00 Test Item Value Reference Range Interpretation Comments Hgb (test code = Hgb) 11.8 12.0-16.0 [place] 238064-05-07 09:42:00 Test Item Value Reference Range Interpretation Comments Hct (test code = Hct) 34.5 36.0-48.0 [facility] StephenvilleLvtiputWVAFABHDNQ1964-92-53 09:42:00 Test Item Value Reference Range Interpretation Comments MCV (test code = MCV) 90.6 81.0-99.0 [facility] StephenvilleLtfhgjeFIWMREDAXL8866-47-46 09:42:00 Test Item Value Reference Range Interpretation Comments RDW (test code = RDW) 16.3 11.5-14.5 [facility] StephenvilleZpotpbcMDWWAIEUTZ6994-60-95 09:42:00 Test Item Value Reference Range Interpretation Comments MCHC (test code = MCHC) 34.3 32.0-36.0 [facility]villeImourqvKBZRMIYTMJ0807-61-38 09:42:00 Test Item Value Reference Range Interpretation Comments Platelet (test code = Platelet) 167 133-450 [facility] StephenvilleBqdgxxkDDSINLHKWC6653-47-33 09:42:00 Test Item Value Reference Range Interpretation Comments MPV (test code = MPV) 7.9 7.4-10.4 [facility] StephenvilleWmypjzlDQOERBMGYF3244-64-49 09:42:00 Test Item Value Reference Range Interpretation Comments Eosinophils (test code = 1.6 See_Comment [A utomated message] The Eosinophils) system which ge nerated this result tra nsmitted reference range : <=4.0. The reference r jamaica was not used to int erpret this result as normal/abnormal . [facility] StephenvilleNxolwzeXPOCKTGVDI4974-89-24 09:42:00 Test Item Value Reference Range Interpretation Comments Basophils (test code = 0.2 See_Comment [Aut omated message] The Basophils) system which ge nerated this result tra nsmitted reference range : <=1.0. The reference r jamaica was not used to int erpret this result as normal/abnormal . [facility] StephenvilleUatjyexTUTOWTICYD3697-99-65 09:42:00 Test Item Value Reference Range Interpretation Comments Segs-Bands # (test code = Segs-Bands #) 2.6 1.5-8.1 [facility]villeVzshuefETIPLERFYF1909-74-83 09:42:00 Test Item Value Reference Range Interpretation Comments Monocytes (test code = Monocytes) 7.4 2.0-12.0 [facility] StephenvilleRissehwGHPPRODXKM7270-86-17 09:42:00 Test Item Value Reference Range Interpretation Comments Lymphocytes # (test code = Lymphocytes 1.3 1.0-5.5 #) [facility]villeTfxqbbvIWJADNWMYQ7389-67-39 09:42:00 Test Item Value Reference Range Interpretation Comments Monocytes # (test code 0.3 See_Comment [Aut omated message] The = Monocytes #) system which generated this result tra nsmitted reference range : <=0.8. The reference r jamaica was not used to int erpret this result as normal/abnormal . [facility] StephenvilleRxtpvguDIDPUBTOGA2816-22-26 09:42:00 Test Item Value Reference Range Interpretation Comments Eosinophils # (test code 0.1 See_Comment [A utomated message] The = Eosinophils #) system whic h generated this result tra nsmitted reference range : <=0.5. The reference r jamaica was not used to int erpret this result as normal/abnormal . [facility]villeFfkmftjCAGFSDYYOG5601-18-13 09:42:00 Test Item Value Reference Range Interpretation Comments Basophils # (test code 0.0 See_Comment [Aut omated message] The = Basophils #) system which generated this result tra nsmitted reference range : <=0.2. The reference r jamaica was not used to int erpret this result as normal/abnormal . [facility]villeMbjpaslLNDKZDRDVZ2874-23-54 09:42:00 Test Item Value Reference Range Interpretation Comments Lymphocytes (test code = Lymphocytes) 30.7 20.0-40.0 [facility] StephenvilleDwbacqmKDIYMBYQUX6426-02-85 09:42:00 Test Item Value Reference Range Interpretation Comments Segs (test code = Segs) 60.1 45.0-75.0 [facility]2014-05-07 09:42:00 Test Item Value Reference Range Interpretation Comments Magnesium Lvl (test code = Magnesium 2.0 1.8-2.4 Lvl) [facility]2014-05-07 09:42:00 Test Item Value Reference Range Interpretation Comments eGFR (test code = eGFR) 113 [facility]2014-05-07 09:42:00 Test Item Value Reference Range Interpretation Comments BUN (test code = BUN) 4 7-22 [place] 538464-05-07 09:42:00 Test Item Value Reference Range Interpretation Comments Potassium Lvl (test code = Potassium 3.8 3.5-5.1 Lvl) [facility]2014-05-07 09:42:00 Test Item Value Reference Range Interpretation Comments Creatinine Lvl (test code = Creatinine 0.5 0.5-1.4 Lvl) [facility]2014-05-07 09:42:00 Test Item Value Reference Range Interpretation Comments Glucose Lvl (test code = Glucose Lvl) 94 70-99 [place] 538464-05-07 09:42:00 Test Item Value Reference Range Interpretation Comments Sodium Lvl (test code = Sodium Lvl) 142 135-145 [place] 538464-05-07 09:42:00 Test Item Value Reference Range Interpretation Comments Calcium Lvl (test code = Calcium Lvl) 8.7 8.5-10.5 [facility]2014-05-07 09:42:00 Test Item Value Reference Range Interpretation Comments Chloride Lvl (test code = Chloride Lvl) 105 95-109 [facility]2014-05-07 09:42:00 Test Item Value Reference Range Interpretation Comments CO2 (test code = CO2) 30 24-32 [place] 538464-05-07 09:42:00 Test Item Value Reference Range Interpretation Comments AGAP (test code = AGAP) 10.8 10.0-20.0 [place] 238064-05-07 09:42:00 Test Item Value Reference Range Interpretation Comments WBC (test code = WBC) 4.4 3.7-10.4 [facility]villePzxrmvaYERLQYABRO5054-90-61 09:42:00 Test Item Value Reference Range Interpretation Comments RBC (test code = RBC) 3.80 4.20-5.40 [place] 238064-05-07 09:42:00 Test Item Value Reference Range Interpretation Comments MCH (test code = MCH) 31.1 pg 27.0-31.0 [place] 238064-05-07 09:42:00 Test Item Value Reference Range Interpretation Comments Hgb (test code = Hgb) 11.8 12.0-16.0 [place] [address]-05-07 09:42:00 Test Item Value Reference Range Interpretation Comments Hct (test code = Hct) 34.5 36.0-48.0 [place] [address]-05-07 09:42:00 Test Item Value Reference Range Interpretation Comments MCV (test code = MCV) 90.6 81.0-99.0 [facility]villeJepjipbCLHXEAZDOB2183-42-05 09:42:00 Test Item Value Reference Range Interpretation Comments RDW (test code = RDW) 16.3 11.5-14.5 [facility] StephenvilleZcywhxdAXZVMEWYTR3248-00-31 09:42:00 Test Item Value Reference Range Interpretation Comments MCHC (test code = MCHC) 34.3 32.0-36.0 [facility]villePecfhweJHVFDWWMVE8315-23-56 09:42:00 Test Item Value Reference Range Interpretation Comments Platelet (test code = Platelet) 167 133-450 [facility]villeBgehfweAHASXUMNPE0063-52-60 09:42:00 Test Item Value Reference Range Interpretation Comments MPV (test code = MPV) 7.9 7.4-10.4 [facility]villeHlqxwavZGEYLJKBVW8620-68-43 09:42:00 Test Item Value Reference Range Interpretation Comments Eosinophils (test code = 1.6 See_Comment [A utomated message] The Eosinophils) system which ge nerated this result tra nsmitted reference range : <=4.0. The reference r jamaica was not used to int erpret this result as normal/abnormal . [facility]villeBucwhspODXKSMFOAP4140-36-35 09:42:00 Test Item Value Reference Range Interpretation Comments Basophils (test code = 0.2 See_Comment [Aut omated message] The Basophils) system which ge nerated this result tra nsmitted reference range : <=1.0. The reference r jamaica was not used to int erpret this result as normal/abnormal . [facility]villeVjwukvmRXJFTUZNXL0439-78-66 09:42:00 Test Item Value Reference Range Interpretation Comments Segs-Bands # (test code = Segs-Bands #) 2.6 1.5-8.1 [facility]villeHeddavpCVYEFFTRIK3687-70-17 09:42:00 Test Item Value Reference Range Interpretation Comments Monocytes (test code = Monocytes) 7.4 2.0-12.0 [facility] StephenvilleVqauzcmZFBFIZPQCE8626-26-84 09:42:00 Test Item Value Reference Range Interpretation Comments Lymphocytes # (test code = Lymphocytes 1.3 1.0-5.5 #) [facility] [place]OrgprwmJPJTPGUYID1201-47-25 09:42:00 Test Item Value Reference Range Interpretation Comments Monocytes # (test code 0.3 See_Comment [Aut omated message] The = Monocytes #) system which generated this result tra nsmitted reference range : <=0.8. The reference r jamaica was not used to int erpret this result as normal/abnormal . [facility] StephenvilleKocturtFQPYYZENVJ6243-71-98 09:42:00 Test Item Value Reference Range Interpretation Comments Eosinophils # (test code 0.1 See_Comment [A utomated message] The = Eosinophils #) system whic h generated this result tra nsmitted reference range : <=0.5. The reference r jamaica was not used to int erpret this result as normal/abnormal . [facility] StephenvilleEnotqaaFYSFGRLJHR1413-99-62 09:42:00 Test Item Value Reference Range Interpretation Comments Basophils # (test code 0.0 See_Comment [Aut omated message] The = Basophils #) system which generated this result tra nsmitted reference range : <=0.2. The reference r jamaica was not used to int erpret this result as normal/abnormal . [facility] [place]villeAplgyhiGEFHGVCGEK2826-09-96 09:42:00 Test Item Value Reference Range Interpretation Comments Lymphocytes (test code = Lymphocytes) 30.7 20.0-40.0 [facility] StephenvilleWzzzdmvYUQWQNRGHX2212-82-42 09:42:00 Test Item Value Reference Range Interpretation Comments Segs (test code = Segs) 60.1 45.0-75.0 [facility]2014-05-07 09:42:00 Test Item Value Reference Range Interpretation Comments Magnesium Lvl (test code = Magnesium 2.0 1.8-2.4 Lvl) [facility]2014-05-07 09:42:00 Test Item Value Reference Range Interpretation Comments eGFR (test code = eGFR) 113 [facility]2014-05-07 09:42:00 Test Item Value Reference Range Interpretation Comments BUN (test code = BUN) 4 7-22 [facility]2014-05-07 09:42:00 Test Item Value Reference Range Interpretation Comments Potassium Lvl (test code = Potassium 3.8 3.5-5.1 Lvl) [facility]2014-05-07 09:42:00 Test Item Value Reference Range Interpretation Comments Creatinine Lvl (test code = Creatinine 0.5 0.5-1.4 Lvl) [facility]2014-05-07 09:42:00 Test Item Value Reference Range Interpretation Comments Glucose Lvl (test code = Glucose Lvl) 94 70-99 [facility]2014-05-07 09:42:00 Test Item Value Reference Range Interpretation Comments Sodium Lvl (test code = Sodium Lvl) 142 135-145 [facility]2014-05-07 09:42:00 Test Item Value Reference Range Interpretation Comments Calcium Lvl (test code = Calcium Lvl) 8.7 8.5-10.5 [place] 538464-05-07 09:42:00 Test Item Value Reference Range Interpretation Comments Chloride Lvl (test code = Chloride Lvl) 105 95-109 [facility]2014-05-07 09:42:00 Test Item Value Reference Range Interpretation Comments CO2 (test code = CO2) 30 24-32 [place] 538464-05-07 09:42:00 Test Item Value Reference Range Interpretation Comments AGAP (test code = AGAP) 10.8 10.0-20.0 [place] [address]-05-07 09:42:00 Test Item Value Reference Range Interpretation Comments WBC (test code = WBC) 4.4 3.7-10.4 [facility] StephenvilleZxrjxpaHKUKRZDRNJ5939-95-84 09:42:00 Test Item Value Reference Range Interpretation Comments RBC (test code = RBC) 3.80 4.20-5.40 [facility] StephenvilleGvxukeaHOOGHYXJBG9358-87-58 09:42:00 Test Item Value Reference Range Interpretation Comments MCH (test code = MCH) 31.1 pg 27.0-31.0 [place] 238064-05-07 09:42:00 Test Item Value Reference Range Interpretation Comments Hgb (test code = Hgb) 11.8 12.0-16.0 [facility] StephenvilleAwuambxPUSRXWQPHZ5638-55-43 09:42:00 Test Item Value Reference Range Interpretation Comments Hct (test code = Hct) 34.5 36.0-48.0 [facility] StephenvilleHqvmxhdUOZDYLDSWU9669-55-28 09:42:00 Test Item Value Reference Range Interpretation Comments MCV (test code = MCV) 90.6 81.0-99.0 [place] [address]-05-07 09:42:00 Test Item Value Reference Range Interpretation Comments RDW (test code = RDW) 16.3 11.5-14.5 [facility] StephenvilleZprurmqBWXYRGYVLN5243-42-30 09:42:00 Test Item Value Reference Range Interpretation Comments MCHC (test code = MCHC) 34.3 32.0-36.0 [facility] StephenvilleLmenedgHDSGPIKQTF1174-88-64 09:42:00 Test Item Value Reference Range Interpretation Comments Platelet (test code = Platelet) 167 133-450 [facility] StephenvilleRlttprqNJYNFYZJSS6223-97-15 09:42:00 Test Item Value Reference Range Interpretation Comments MPV (test code = MPV) 7.9 7.4-10.4 [facility] StephenvilleUwyqihaRTFRJZPITY6587-61-84 09:42:00 Test Item Value Reference Range Interpretation Comments Eosinophils (test code = 1.6 See_Comment [A utomated message] The Eosinophils) system which ge nerated this result tra nsmitted reference range : <=4.0. The reference r jamaica was not used to int erpret this result as normal/abnormal . [facility] StephenvilleIrmdsahZDTPTFPBPH9165-35-04 09:42:00 Test Item Value Reference Range Interpretation Comments Basophils (test code = 0.2 See_Comment [Aut omated message] The Basophils) system which ge nerated this result tra nsmitted reference range : <=1.0. The reference r jamaica was not used to int erpret this result as normal/abnormal . [facility] StephenvilleTuhdkxeMOLGLYQCQP0145-32-61 09:42:00 Test Item Value Reference Range Interpretation Comments Segs-Bands # (test code = Segs-Bands #) 2.6 1.5-8.1 [facility] StephenvilleSnjbaocXWAFFQVBND1097-40-89 09:42:00 Test Item Value Reference Range Interpretation Comments Monocytes (test code = Monocytes) 7.4 2.0-12.0 [facility] StephenvilleVxujybpOSFCWUNNYD5174-13-70 09:42:00 Test Item Value Reference Range Interpretation Comments Lymphocytes # (test code = Lymphocytes 1.3 1.0-5.5 #) [facility] StephenvilleQdbrpeyCMLJEDQREY3261-62-49 09:42:00 Test Item Value Reference Range Interpretation Comments Monocytes # (test code 0.3 See_Comment [Aut omated message] The = Monocytes #) system which generated this result tra nsmitted reference range : <=0.8. The reference r jamaica was not used to int erpret this result as normal/abnormal . [facility] StephenvilleOiabmetLOIXGJYNFG5830-22-00 09:42:00 Test Item Value Reference Range Interpretation Comments Eosinophils # (test code 0.1 See_Comment [A utomated message] The = Eosinophils #) system whic h generated this result tra nsmitted reference range : <=0.5. The reference r jamaica was not used to int erpret this result as normal/abnormal . [facility] StephenvilleNhbqgypXNWWZCBKMK6984-40-26 09:42:00 Test Item Value Reference Range Interpretation Comments Basophils # (test code 0.0 See_Comment [Aut omated message] The = Basophils #) system which generated this result tra nsmitted reference range : <=0.2. The reference r jamaica was not used to int erpret this result as normal/abnormal . [place] [address]-05-07 09:42:00 Test Item Value Reference Range Interpretation Comments Lymphocytes (test code = Lymphocytes) 30.7 20.0-40.0 [place] [address]-05-07 09:42:00 Test Item Value Reference Range Interpretation Comments Segs (test code = Segs) 60.1 45.0-75.0 [facility]2014-05-07 09:42:00 Test Item Value Reference Range Interpretation Comments Magnesium Lvl (test code = Magnesium 2.0 1.8-2.4 Lvl) [facility]2014-05-07 09:42:00 Test Item Value Reference Range Interpretation Comments eGFR (test code = eGFR) 113 [facility]2014-05-07 09:42:00 Test Item Value Reference Range Interpretation Comments BUN (test code = BUN) 4 7-22 [place] 538464-05-07 09:42:00 Test Item Value Reference Range Interpretation Comments Potassium Lvl (test code = Potassium 3.8 3.5-5.1 Lvl) [facility]2014-05-07 09:42:00 Test Item Value Reference Range Interpretation Comments Creatinine Lvl (test code = Creatinine 0.5 0.5-1.4 Lvl) [facility]2014-05-07 09:42:00 Test Item Value Reference Range Interpretation Comments Glucose Lvl (test code = Glucose Lvl) 94 70-99 [facility]2014-05-07 09:42:00 Test Item Value Reference Range Interpretation Comments Sodium Lvl (test code = Sodium Lvl) 142 135-145 [facility]2014-05-07 09:42:00 Test Item Value Reference Range Interpretation Comments Calcium Lvl (test code = Calcium Lvl) 8.7 8.5-10.5 [facility]2014-05-07 09:42:00 Test Item Value Reference Range Interpretation Comments Chloride Lvl (test code = Chloride Lvl) 105 95-109 [facility]2014-05-07 09:42:00 Test Item Value Reference Range Interpretation Comments CO2 (test code = CO2) 30 24-32 [facility]2014-05-07 09:42:00 Test Item Value Reference Range Interpretation Comments AGAP (test code = AGAP) 10.8 10.0-20.0 [facility] StephenvilleWoeusnrMAKGEUWFRL6281-25-48 09:42:00 Test Item Value Reference Range Interpretation Comments WBC (test code = WBC) 4.4 3.7-10.4 [place] 238064-05-07 09:42:00 Test Item Value Reference Range Interpretation Comments RBC (test code = RBC) 3.80 4.20-5.40 [facility] StephenvilleNvjzdvwDJAZTDBSEN2346-74-21 09:42:00 Test Item Value Reference Range Interpretation Comments MCH (test code = MCH) 31.1 pg 27.0-31.0 [facility] StephenvilleIgesuvlEPSVOBUYFP1530-40-40 09:42:00 Test Item Value Reference Range Interpretation Comments Hgb (test code = Hgb) 11.8 12.0-16.0 [facility] StephenvillePjhjdqvRMFIMFXMGQ4672-44-84 09:42:00 Test Item Value Reference Range Interpretation Comments Hct (test code = Hct) 34.5 36.0-48.0 [facility] StephenvilleQjitkbeKXVPYYLNSG2609-51-53 09:42:00 Test Item Value Reference Range Interpretation Comments MCV (test code = MCV) 90.6 81.0-99.0 [place] 238064-05-07 09:42:00 Test Item Value Reference Range Interpretation Comments RDW (test code = RDW) 16.3 11.5-14.5 [facility] [place]villePhmswymDMKCEPYFEF3416-76-33 09:42:00 Test Item Value Reference Range Interpretation Comments MCHC (test code = MCHC) 34.3 32.0-36.0 [facility] [place]villeOnvgxkhCWOOWFCIBK7269-78-51 09:42:00 Test Item Value Reference Range Interpretation Comments Platelet (test code = Platelet) 167 133-450 [facility] [place]villeDotpcgtFQCLHSXMVD5554-49-16 09:42:00 Test Item Value Reference Range Interpretation Comments MPV (test code = MPV) 7.9 7.4-10.4 [facility] StephenvilleErbbusxECQYBOVVYB7015-99-95 09:42:00 Test Item Value Reference Range Interpretation Comments Eosinophils (test code = 1.6 See_Comment [A utomated message] The Eosinophils) system which ge nerated this result tra nsmitted reference range : <=4.0. The reference r jamaica was not used to int erpret this result as normal/abnormal . [facility] [place]villeAbqhcihXNAOPZHSTH9526-84-11 09:42:00 Test Item Value Reference Range Interpretation Comments Basophils (test code = 0.2 See_Comment [Aut omated message] The Basophils) system which ge nerated this result tra nsmitted reference range : <=1.0. The reference r jamaica was not used to int erpret this result as normal/abnormal . [facility] [place]villeFmndppoYFCVSEMPUD6218-52-86 09:42:00 Test Item Value Reference Range Interpretation Comments Segs-Bands # (test code = Segs-Bands #) 2.6 1.5-8.1 [facility] [place]villeIvxohsuCMNQGKQBWF4258-22-43 09:42:00 Test Item Value Reference Range Interpretation Comments Monocytes (test code = Monocytes) 7.4 2.0-12.0 [facility] StephenvilleUdtqmgwZQJLVIRYVE1631-97-60 09:42:00 Test Item Value Reference Range Interpretation Comments Lymphocytes # (test code = Lymphocytes 1.3 1.0-5.5 #) [facility] [place]villeUntjgucLGIMZGSVMN3988-50-50 09:42:00 Test Item Value Reference Range Interpretation Comments Monocytes # (test code 0.3 See_Comment [Aut omated message] The = Monocytes #) system which generated this result tra nsmitted reference range : <=0.8. The reference r jamaica was not used to int erpret this result as normal/abnormal . [facility] [place]villeQmcsyupHLMZINCYDA1445-21-29 09:42:00 Test Item Value Reference Range Interpretation Comments Eosinophils # (test code 0.1 See_Comment [A utomated message] The = Eosinophils #) system whic h generated this result tra nsmitted reference range : <=0.5. The reference r jamaica was not used to int erpret this result as normal/abnormal . [facility] [place]villeAivjfkqBCMWQZZKRA6616-42-53 09:42:00 Test Item Value Reference Range Interpretation Comments Basophils # (test code 0.0 See_Comment [Aut omated message] The = Basophils #) system which generated this result tra nsmitted reference range : <=0.2. The reference r jamaica was not used to int erpret this result as normal/abnormal . [facility] [place]villeMpmjummCPSSZMUZFO9491-71-34 09:42:00 Test Item Value Reference Range Interpretation Comments Lymphocytes (test code = Lymphocytes) 30.7 20.0-40.0 [facility] StephenvilleNttpaprCHSVSXWSWU1693-04-74 09:42:00 Test Item Value Reference Range Interpretation Comments Segs (test code = Segs) 60.1 45.0-75.0 [facility]2014-05-07 09:42:00 Test Item Value Reference Range Interpretation Comments Magnesium Lvl (test code = Magnesium 2.0 1.8-2.4 Lvl) [facility]2014-05-07 09:42:00 Test Item Value Reference Range Interpretation Comments eGFR (test code = eGFR) 113 [facility]2014-05-07 09:42:00 Test Item Value Reference Range Interpretation Comments BUN (test code = BUN) 4 7-22 [place] 538464-05-07 09:42:00 Test Item Value Reference Range Interpretation Comments Potassium Lvl (test code = Potassium 3.8 3.5-5.1 Lvl) [facility]2014-05-07 09:42:00 Test Item Value Reference Range Interpretation Comments Creatinine Lvl (test code = Creatinine 0.5 0.5-1.4 Lvl) [facility]2014-05-07 09:42:00 Test Item Value Reference Range Interpretation Comments Glucose Lvl (test code = Glucose Lvl) 94 70-99 [facility]2014-05-07 09:42:00 Test Item Value Reference Range Interpretation Comments Sodium Lvl (test code = Sodium Lvl) 142 135-145 [facility]2014-05-07 09:42:00 Test Item Value Reference Range Interpretation Comments Calcium Lvl (test code = Calcium Lvl) 8.7 8.5-10.5 [facility]2014-05-07 09:42:00 Test Item Value Reference Range Interpretation Comments Chloride Lvl (test code = Chloride Lvl) 105 95-109 [facility]2014-05-07 09:42:00 Test Item Value Reference Range Interpretation Comments CO2 (test code = CO2) 30 24-32 [facility]2014-05-07 09:42:00 Test Item Value Reference Range Interpretation Comments AGAP (test code = AGAP) 10.8 10.0-20.0 [facility] [place]villePzlatcvMOLRXEDRIX4618-22-99 09:42:00 Test Item Value Reference Range Interpretation Comments WBC (test code = WBC) 4.4 3.7-10.4 [facility] StephenvilleLbpzazcBRRUYMWNVC8463-22-98 09:42:00 Test Item Value Reference Range Interpretation Comments RBC (test code = RBC) 3.80 4.20-5.40 [facility] StephenvilleHusfzlnWXPAVMOMNJ2294-15-99 09:42:00 Test Item Value Reference Range Interpretation Comments MCH (test code = MCH) 31.1 pg 27.0-31.0 [facility] StephenvilleDhixgjkYOCDGQNTQQ5496-93-29 09:42:00 Test Item Value Reference Range Interpretation Comments Hgb (test code = Hgb) 11.8 12.0-16.0 [facility] StephenvilleYwwpmxeIGSONITQCR6395-45-17 09:42:00 Test Item Value Reference Range Interpretation Comments Hct (test code = Hct) 34.5 36.0-48.0 [facility] StephenvilleRshouleVGMLQUPSCT1927-89-19 09:42:00 Test Item Value Reference Range Interpretation Comments MCV (test code = MCV) 90.6 81.0-99.0 [facility] StephenvilleQyoeifjJFUZGYAJNM2390-53-32 09:42:00 Test Item Value Reference Range Interpretation Comments RDW (test code = RDW) 16.3 11.5-14.5 [facility] StephenvilleSavczusKUPLVURJOQ0688-69-76 09:42:00 Test Item Value Reference Range Interpretation Comments MCHC (test code = MCHC) 34.3 32.0-36.0 [facility] StephenvilleBhhjizpIRGBSZNUDV0314-77-99 09:42:00 Test Item Value Reference Range Interpretation Comments Platelet (test code = Platelet) 167 133-450 [facility] StephenvilleAdhxekvOUEWLMFLIP1736-48-78 09:42:00 Test Item Value Reference Range Interpretation Comments MPV (test code = MPV) 7.9 7.4-10.4 [facility] StephenvilleIyqxhuaFDNKMPYEZR0687-88-81 09:42:00 Test Item Value Reference Range Interpretation Comments Eosinophils (test code = 1.6 See_Comment [A utomated message] The Eosinophils) system which ge nerated this result tra nsmitted reference range : <=4.0. The reference r jamaica was not used to int erpret this result as normal/abnormal . [facility] StephenvilleQkkealiWUQDSMLQQS7841-80-14 09:42:00 Test Item Value Reference Range Interpretation Comments Basophils (test code = 0.2 See_Comment [Aut omated message] The Basophils) system which ge nerated this result tra nsmitted reference range : <=1.0. The reference r jamaica was not used to int erpret this result as normal/abnormal . [facility] StephenvilleDqfcsnfJXAZHRJFXG1532-45-88 09:42:00 Test Item Value Reference Range Interpretation Comments Segs-Bands # (test code = Segs-Bands #) 2.6 1.5-8.1 [facility] StephenvilleCnlltktQIJYRFGEQI9140-36-29 09:42:00 Test Item Value Reference Range Interpretation Comments Monocytes (test code = Monocytes) 7.4 2.0-12.0 [facility] StephenvilleQyxirpyKFXLZOUSJF0519-42-75 09:42:00 Test Item Value Reference Range Interpretation Comments Lymphocytes # (test code = Lymphocytes 1.3 1.0-5.5 #) [facility] StephenvilleEwnglehVHRZKTBMRE6544-46-84 09:42:00 Test Item Value Reference Range Interpretation Comments Monocytes # (test code 0.3 See_Comment [Aut omated message] The = Monocytes #) system which generated this result tra nsmitted reference range : <=0.8. The reference r jamaica was not used to int erpret this result as normal/abnormal . [facility] StephenvilleTzqirfiVWSNUZEKZG0010-16-07 09:42:00 Test Item Value Reference Range Interpretation Comments Eosinophils # (test code 0.1 See_Comment [A utomated message] The = Eosinophils #) system whic h generated this result tra nsmitted reference range : <=0.5. The reference r jamaica was not used to int erpret this result as normal/abnormal . [facility] StephenvilleDduynboOCPWBWQRAW6470-12-81 09:42:00 Test Item Value Reference Range Interpretation Comments Basophils # (test code 0.0 See_Comment [Aut omated message] The = Basophils #) system which generated this result tra nsmitted reference range : <=0.2. The reference r jamaica was not used to int erpret this result as normal/abnormal . [facility] StephenvilleSvyrfkwRWDMHNESZM0643-94-55 09:42:00 Test Item Value Reference Range Interpretation Comments Lymphocytes (test code = Lymphocytes) 30.7 20.0-40.0 [facility] StephenvilleTkigflaGNINJJRHFU0410-46-20 09:42:00 Test Item Value Reference Range Interpretation Comments Segs (test code = Segs) 60.1 45.0-75.0 [facility]2014-05-07 09:42:00 Test Item Value Reference Range Interpretation Comments Magnesium Lvl (test code = Magnesium 2.0 1.8-2.4 Lvl) [facility]2014-05-07 09:42:00 Test Item Value Reference Range Interpretation Comments eGFR (test code = eGFR) 113 [facility]2014-05-07 09:42:00 Test Item Value Reference Range Interpretation Comments BUN (test code = BUN) 4 7-22 [facility]2014-05-07 09:42:00 Test Item Value Reference Range Interpretation Comments Potassium Lvl (test code = Potassium 3.8 3.5-5.1 Lvl) [facility]2014-05-07 09:42:00 Test Item Value Reference Range Interpretation Comments Creatinine Lvl (test code = Creatinine 0.5 0.5-1.4 Lvl) [place] 538464-05-07 09:42:00 Test Item Value Reference Range Interpretation Comments Glucose Lvl (test code = Glucose Lvl) 94 70-99 [facility]2014-05-07 09:42:00 Test Item Value Reference Range Interpretation Comments Sodium Lvl (test code = Sodium Lvl) 142 135-145 [facility]2014-05-07 09:42:00 Test Item Value Reference Range Interpretation Comments Calcium Lvl (test code = Calcium Lvl) 8.7 8.5-10.5 [place] 538464-05-07 09:42:00 Test Item Value Reference Range Interpretation Comments Chloride Lvl (test code = Chloride Lvl) 105 95-109 [facility]2014-05-07 09:42:00 Test Item Value Reference Range Interpretation Comments CO2 (test code = CO2) 30 24-32 [facility]2014-05-07 09:42:00 Test Item Value Reference Range Interpretation Comments AGAP (test code = AGAP) 10.8 10.0-20.0 [facility] StephenvilleNqqubqrPBASVRNLCI1243-44-62 09:42:00 Test Item Value Reference Range Interpretation Comments WBC (test code = WBC) 4.4 3.7-10.4 [facility] StephenvilleNjspzgvPGQAQHBSTO8072-40-94 09:42:00 Test Item Value Reference Range Interpretation Comments RBC (test code = RBC) 3.80 4.20-5.40 [facility] StephenvilleLoixodqUIOQVEELWH2158-43-50 09:42:00 Test Item Value Reference Range Interpretation Comments MCH (test code = MCH) 31.1 pg 27.0-31.0 [facility] StephenvilleBrkxofuRPXEDARISZ8018-89-16 09:42:00 Test Item Value Reference Range Interpretation Comments Hgb (test code = Hgb) 11.8 12.0-16.0 [facility] StephenvilleAfexjazDZLHJCTXJI5459-99-32 09:42:00 Test Item Value Reference Range Interpretation Comments Hct (test code = Hct) 34.5 36.0-48.0 [facility] StephenvilleWcxpqduICMDSEDCYL0698-25-40 09:42:00 Test Item Value Reference Range Interpretation Comments MCV (test code = MCV) 90.6 81.0-99.0 [facility] StephenvilleSaftwcmDAPJBQZOGL4144-72-01 09:42:00 Test Item Value Reference Range Interpretation Comments RDW (test code = RDW) 16.3 11.5-14.5 [facility] StephenvilleJqjfpelWMZQZVXGNX5025-53-52 09:42:00 Test Item Value Reference Range Interpretation Comments MCHC (test code = MCHC) 34.3 32.0-36.0 [facility] StephenvilleTygomwpFBAOKEHUDQ4503-88-37 09:42:00 Test Item Value Reference Range Interpretation Comments Platelet (test code = Platelet) 167 133-450 [facility] StephenvilleUjoayllXYIHTDCIOX2877-68-97 09:42:00 Test Item Value Reference Range Interpretation Comments MPV (test code = MPV) 7.9 7.4-10.4 [facility] StephenvilleJvpcxhuWASGSDETQI9248-09-60 09:42:00 Test Item Value Reference Range Interpretation Comments Eosinophils (test code = 1.6 See_Comment [A utomated message] The Eosinophils) system which ge nerated this result tra nsmitted reference range : <=4.0. The reference r j[place] was not used to int erpret this result as normal/abnormal . [facility] [facility]villeDfmpvqcBPACUNXPOB7299-05-[facility] 09:42:00 Test Item Value Reference Range Interpretation Comments Basophils (test code = 0.2 See_Comment [Aut omated message] The Basophils) system which ge nerated this result tra nsmitted reference range : <=1.0. The reference r jamaica was not used to int erpret this result as normal/abnormal . [facility]villeQaghjjlQQGDBXMBAY0995-07-97 09:42:00 Test Item Value Reference Range Interpretation Comments Segs-Bands # (test code = Segs-Bands #) 2.6 1.5-8.1 [facility]villeAygnhzaAANMZFAUAT6883-93-59 09:42:00 Test Item Value Reference Range Interpretation Comments Monocytes (test code = Monocytes) 7.4 2.0-12.0 [facility]villeTjhbfdaGLXCMAWSWI6822-43-84 09:42:00 Test Item Value Reference Range Interpretation Comments Lymphocytes # (test code = Lymphocytes 1.3 1.0-5.5 #) [facility]villeGrgphlvCFADKVEXGC7381-70-86 09:42:00 Test Item Value Reference Range Interpretation Comments Monocytes # (test code 0.3 See_Comment [Aut omated message] The = Monocytes #) system which generated this result tra nsmitted reference range : <=0.8. The reference r jamaica was not used to int erpret this result as normal/abnormal . [facility]villeThvqqiqWWGSCFVXGV5166-09-14 09:42:00 Test Item Value Reference Range Interpretation Comments Eosinophils # (test code 0.1 See_Comment [A utomated message] The = Eosinophils #) system whic h generated this result tra nsmitted reference range : <=0.5. The reference r jamaica was not used to int erpret this result as normal/abnormal . [facility]villeLrzbzfcOUXPXBEIDV8170-72-94 09:42:00 Test Item Value Reference Range Interpretation Comments Basophils # (test code 0.0 See_Comment [Aut omated message] The = Basophils #) system which generated this result tra nsmitted reference range : <=0.2. The reference r jamaica was not used to int erpret this result as normal/abnormal . [facility]villeVrpniuyWJEVIDSFCH3350-22-52 09:42:00 Test Item Value Reference Range Interpretation Comments Lymphocytes (test code = Lymphocytes) 30.7 20.0-40.0 [facility]villeZnvtmjhUTWADNXKZW2977-75-07 09:42:00 Test Item Value Reference Range Interpretation Comments Segs (test code = Segs) 60.1 45.0-75.0 [facility]2014-05-07 09:42:00 Test Item Value Reference Range Interpretation Comments Magnesium Lvl (test code = Magnesium 2.0 1.8-2.4 Lvl) [facility]2014-05-07 09:42:00 Test Item Value Reference Range Interpretation Comments eGFR (test code = eGFR) 113 [facility]2014-05-07 09:42:00 Test Item Value Reference Range Interpretation Comments BUN (test code = BUN) 4 7-22 [facility]2014-05-07 09:42:00 Test Item Value Reference Range Interpretation Comments Potassium Lvl (test code = Potassium 3.8 3.5-5.1 Lvl) [facility]2014-05-07 09:42:00 Test Item Value Reference Range Interpretation Comments Creatinine Lvl (test code = Creatinine 0.5 0.5-1.4 Lvl) [facility]2014-05-07 09:42:00 Test Item Value Reference Range Interpretation Comments Glucose Lvl (test code = Glucose Lvl) 94 70-99 [facility]2014-05-07 09:42:00 Test Item Value Reference Range Interpretation Comments Sodium Lvl (test code = Sodium Lvl) 142 135-145 [facility]2014-05-07 09:42:00 Test Item Value Reference Range Interpretation Comments Calcium Lvl (test code = Calcium Lvl) 8.7 8.5-10.5 [facility]2014-05-07 09:42:00 Test Item Value Reference Range Interpretation Comments Chloride Lvl (test code = Chloride Lvl) 105 95-109 [facility]2014-05-07 09:42:00 Test Item Value Reference Range Interpretation Comments CO2 (test code = CO2) 30 24-32 [facility]2014-05-07 09:42:00 Test Item Value Reference Range Interpretation Comments AGAP (test code = AGAP) 10.8 10.0-20.0 [facility]villeDxgkndzRCTYJUQFBD2716-98-27 09:42:00 Test Item Value Reference Range Interpretation Comments WBC (test code = WBC) 4.4 3.7-10.4 [facility]villeKhzxgvxFHAKCHTITF3924-86-13 09:42:00 Test Item Value Reference Range Interpretation Comments RBC (test code = RBC) 3.80 4.20-5.40 [facility]villeVucdidmDXYJVGSXOI5584-92-27 09:42:00 Test Item Value Reference Range Interpretation Comments MCH (test code = MCH) 31.1 pg 27.0-31.0 [facility]villeAsvevwpNWOUZAXVDM6956-40-78 09:42:00 Test Item Value Reference Range Interpretation Comments Hgb (test code = Hgb) 11.8 12.0-16.0 [facility] StephenvilleBqsdmooNZHQKSZFMG3598-15-74 09:42:00 Test Item Value Reference Range Interpretation Comments Hct (test code = Hct) 34.5 36.0-48.0 [facility]villeDvvspmqVVDVAPFDBU9362-14-55 09:42:00 Test Item Value Reference Range Interpretation Comments MCV (test code = MCV) 90.6 81.0-99.0 [facility]villeBwtryqwRLKOTEYAYE1681-84-83 09:42:00 Test Item Value Reference Range Interpretation Comments RDW (test code = RDW) 16.3 11.5-14.5 [facility]villePvutixpRHPTCATHOS4703-13-07 09:42:00 Test Item Value Reference Range Interpretation Comments MCHC (test code = MCHC) 34.3 32.0-36.0 [facility]villeDsqlaqlPCBSWJFRYE2721-69-75 09:42:00 Test Item Value Reference Range Interpretation Comments Platelet (test code = Platelet) 167 133-450 [facility]villeFjnladvBRSTCLTWXP9646-29-07 09:42:00 Test Item Value Reference Range Interpretation Comments MPV (test code = MPV) 7.9 7.4-10.4 [facility]villeTqafvasTKFMHHEYGA3232-62-88 09:42:00 Test Item Value Reference Range Interpretation Comments Eosinophils (test code = 1.6 See_Comment [A utomated message] The Eosinophils) system which ge nerated this result tra nsmitted reference range : <=4.0. The reference r jamaica was not used to int erpret this result as normal/abnormal . [facility]villeItwnnsbFOSNKTCIZT9293-69-02 09:42:00 Test Item Value Reference Range Interpretation Comments Basophils (test code = 0.2 See_Comment [Aut omated message] The Basophils) system which ge nerated this result tra nsmitted reference range : <=1.0. The reference r jamaica was not used to int erpret this result as normal/abnormal . [facility]villeJnwwgagEMMULKTMDS0512-99-75 09:42:00 Test Item Value Reference Range Interpretation Comments Segs-Bands # (test code = Segs-Bands #) 2.6 1.5-8.1 [place] 238064-05-07 09:42:00 Test Item Value Reference Range Interpretation Comments Monocytes (test code = Monocytes) 7.4 2.0-12.0 [facility]villeBbefserLQDLJZQOLN3302-50-33 09:42:00 Test Item Value Reference Range Interpretation Comments Lymphocytes # (test code = Lymphocytes 1.3 1.0-5.5 #) [facility]villeRcibqbtLBXSWGHXMC6359-43-64 09:42:00 Test Item Value Reference Range Interpretation Comments Monocytes # (test code 0.3 See_Comment [Aut omated message] The = Monocytes #) system which generated this result tra nsmitted reference range : <=0.8. The reference r jamaica was not used to int erpret this result as normal/abnormal . [facility] StephenvilleZdyvgiqFAETTSKAGH3060-03-88 09:42:00 Test Item Value Reference Range Interpretation Comments Eosinophils # (test code 0.1 See_Comment [A utomated message] The = Eosinophils #) system whic h generated this result tra nsmitted reference range : <=0.5. The reference r jamaica was not used to int erpret this result as normal/abnormal . [facility]villeEduefnqAJBEYWOJWZ7301-69-10 09:42:00 Test Item Value Reference Range Interpretation Comments Basophils # (test code 0.0 See_Comment [Aut omated message] The = Basophils #) system which generated this result tra nsmitted reference range : <=0.2. The reference r jamaica was not used to int erpret this result as normal/abnormal . [facility]villeChxqiquYGVKXHSXTI1105-30-57 09:42:00 Test Item Value Reference Range Interpretation Comments Lymphocytes (test code = Lymphocytes) 30.7 20.0-40.0 [facility]villeYjqtszxZPCCTESFWM0547-37-58 09:42:00 Test Item Value Reference Range Interpretation Comments Segs (test code = Segs) 60.1 45.0-75.0 [facility]2014-05-07 09:42:00 Test Item Value Reference Range Interpretation Comments Magnesium Lvl (test code = Magnesium 2.0 1.8-2.4 Lvl) [facility]2014-05-07 09:42:00 Test Item Value Reference Range Interpretation Comments eGFR (test code = eGFR) 113 [facility]2014-05-07 09:42:00 Test Item Value Reference Range Interpretation Comments BUN (test code = BUN) 4 7-22 [facility]2014-05-07 09:42:00 Test Item Value Reference Range Interpretation Comments Potassium Lvl (test code = Potassium 3.8 3.5-5.1 Lvl) [facility]2014-05-07 09:42:00 Test Item Value Reference Range Interpretation Comments Creatinine Lvl (test code = Creatinine 0.5 0.5-1.4 Lvl) [facility]2014-05-07 09:42:00 Test Item Value Reference Range Interpretation Comments Glucose Lvl (test code = Glucose Lvl) 94 70-99 [facility]2014-05-07 09:42:00 Test Item Value Reference Range Interpretation Comments Sodium Lvl (test code = Sodium Lvl) 142 135-145 [facility]2014-05-07 09:42:00 Test Item Value Reference Range Interpretation Comments Calcium Lvl (test code = Calcium Lvl) 8.7 8.5-10.5 [facility]2014-05-07 09:42:00 Test Item Value Reference Range Interpretation Comments Chloride Lvl (test code = Chloride Lvl) 105 95-109 [place] 538464-05-07 09:42:00 Test Item Value Reference Range Interpretation Comments CO2 (test code = CO2) 30 24-32 [facility]2014-05-07 09:42:00 Test Item Value Reference Range Interpretation Comments AGAP (test code = AGAP) 10.8 10.0-20.0 [facility]villeJugdskaMBRNQHHXOS5255-90-38 09:42:00 Test Item Value Reference Range Interpretation Comments WBC (test code = WBC) 4.4 3.7-10.4 [facility]villeQexmsjzEQRKXKLMXZ7831-61-93 09:42:00 Test Item Value Reference Range Interpretation Comments RBC (test code = RBC) 3.80 4.20-5.40 [facility]villeQexdilwWSKXHYNLMK6171-65-09 09:42:00 Test Item Value Reference Range Interpretation Comments MCH (test code = MCH) 31.1 pg 27.0-31.0 [facility]villeJapnffzFYQVJKCPAF0348-65-10 09:42:00 Test Item Value Reference Range Interpretation Comments Hgb (test code = Hgb) 11.8 12.0-16.0 [facility]villeHvdjyggCVYZQFEXZK1507-70-36 09:42:00 Test Item Value Reference Range Interpretation Comments Hct (test code = Hct) 34.5 36.0-48.0 [facility]villeQqexgwcAFRRYODFZA5066-35-42 09:42:00 Test Item Value Reference Range Interpretation Comments MCV (test code = MCV) 90.6 81.0-99.0 [facility]villeWilsxjaDWDMOFYPXZ2721-90-39 09:42:00 Test Item Value Reference Range Interpretation Comments RDW (test code = RDW) 16.3 11.5-14.5 [facility]villeAvvsacxURHYBIBTBZ0828-76-01 09:42:00 Test Item Value Reference Range Interpretation Comments MCHC (test code = MCHC) 34.3 32.0-36.0 [facility]villeXeqouleKSYCNQKICQ7369-15-48 09:42:00 Test Item Value Reference Range Interpretation Comments Platelet (test code = Platelet) 167 133-450 [facility]villeGoqjidqFDPWFVEXFD2425-83-58 09:42:00 Test Item Value Reference Range Interpretation Comments MPV (test code = MPV) 7.9 7.4-10.4 [facility]villeEkfbliqHXEOLLKSCV9388-64-43 09:42:00 Test Item Value Reference Range Interpretation Comments Eosinophils (test code = 1.6 See_Comment [A utomated message] The Eosinophils) system which ge nerated this result tra nsmitted reference range : <=4.0. The reference r jamaica was not used to int erpret this result as normal/abnormal . [facility]villeJbgplgoBOZNEATPHS0414-98-87 09:42:00 Test Item Value Reference Range Interpretation Comments Basophils (test code = 0.2 See_Comment [Aut omated message] The Basophils) system which ge nerated this result tra nsmitted reference range : <=1.0. The reference r jamaica was not used to int erpret this result as normal/abnormal . [facility]villeXeiohlqLTRACFBOON1604-82-72 09:42:00 Test Item Value Reference Range Interpretation Comments Segs-Bands # (test code = Segs-Bands #) 2.6 1.5-8.1 [facility]villeLrxwqjpUKRLERXADX3878-61-74 09:42:00 Test Item Value Reference Range Interpretation Comments Monocytes (test code = Monocytes) 7.4 2.0-12.0 [facility]villeIefxkagVAFVXMSGAM1481-27-05 09:42:00 Test Item Value Reference Range Interpretation Comments Lymphocytes # (test code = Lymphocytes 1.3 1.0-5.5 #) [facility]villeAiuwnqhVSAWQFHTPA2226-49-93 09:42:00 Test Item Value Reference Range Interpretation Comments Monocytes # (test code 0.3 See_Comment [Aut omated message] The = Monocytes #) system which generated this result tra nsmitted reference range : <=0.8. The reference r jamaica was not used to int erpret this result as normal/abnormal . [facility] StephenvilleLotmhbwKRZWDMOQAC2422-01-44 09:42:00 Test Item Value Reference Range Interpretation Comments Eosinophils # (test code 0.1 See_Comment [A utomated message] The = Eosinophils #) system [facility] generated this result tra nsmitted reference range : <=0.5. The reference r jamaica was not used to int erpret this result as normal/abnormal . [facility] StephenvilleYegtfafACABAANAXJ9729-73-85 09:42:00 Test Item Value Reference Range Interpretation Comments Basophils # (test code 0.0 See_Comment [Aut omated message] The = Basophils #) system which generated this result tra nsmitted reference range : <=0.2. The reference r jamaica was not used to int erpret this result as normal/abnormal . [facility]villeMwgwlomJKTVTIMZUL1010-18-18 09:42:00 Test Item Value Reference Range Interpretation Comments Lymphocytes (test code = Lymphocytes) 30.7 20.0-40.0 [facility]villeIschkwrNIUWZHTKJP9351-71-41 09:42:00 Test Item Value Reference Range Interpretation Comments Segs (test code = Segs) 60.1 45.0-75.0 [place] 538464-05-07 09:42:00 Test Item Value Reference Range Interpretation Comments Magnesium Lvl (test code = Magnesium 2.0 1.8-2.4 Lvl) [place] 538464-05-07 09:42:00 Test Item Value Reference Range Interpretation Comments eGFR (test code = eGFR) 113 [facility]2014-05-07 09:42:00 Test Item Value Reference Range Interpretation Comments BUN (test code = BUN) 4 7-22 [place] [address]-05-07 09:42:00 Test Item Value Reference Range Interpretation Comments Potassium Lvl (test code = Potassium 3.8 3.5-5.1 Lvl) [facility]2014-05-07 09:42:00 Test Item Value Reference Range Interpretation Comments Creatinine Lvl (test code = Creatinine 0.5 0.5-1.4 Lvl) [place] 538464-05-07 09:42:00 Test Item Value Reference Range Interpretation Comments Glucose Lvl (test code = Glucose Lvl) 94 70-99 [facility]2014-05-07 09:42:00 Test Item Value Reference Range Interpretation Comments Sodium Lvl (test code = Sodium Lvl) 142 135-145 [facility]2014-05-07 09:42:00 Test Item Value Reference Range Interpretation Comments Calcium Lvl (test code = Calcium Lvl) 8.7 8.5-10.5 [facility]2014-05-07 09:42:00 Test Item Value Reference Range Interpretation Comments Chloride Lvl (test code = Chloride Lvl) 105 95-109 [facility]2014-05-07 09:42:00 Test Item Value Reference Range Interpretation Comments CO2 (test code = CO2) 30 24-32 [facility]2014-05-07 09:42:00 Test Item Value Reference Range Interpretation Comments AGAP (test code = AGAP) 10.8 10.0-20.0 [facility]villeCzbexvsCRZKCWYLHX9901-67-73 09:42:00 Test Item Value Reference Range Interpretation Comments WBC (test code = WBC) 4.4 3.7-10.4 [facility]villeVnpbcjeAVMEGRJZTT0338-43-28 09:42:00 Test Item Value Reference Range Interpretation Comments RBC (test code = RBC) 3.80 4.20-5.40 [facility]villeYhavzfdQDWDHBMFMT2393-22-31 09:42:00 Test Item Value Reference Range Interpretation Comments MCH (test code = MCH) 31.1 pg 27.0-31.0 [facility]villeXrflfneOEORGOFQAD6464-02-16 09:42:00 Test Item Value Reference Range Interpretation Comments Hgb (test code = Hgb) 11.8 12.0-16.0 [facility]villeGponpjxWHWNZNCTFF7260-75-65 09:42:00 Test Item Value Reference Range Interpretation Comments Hct (test code = Hct) 34.5 36.0-48.0 [facility]villeYjzjszwEAMEBFUZDH2672-75-71 09:42:00 Test Item Value Reference Range Interpretation Comments MCV (test code = MCV) 90.6 81.0-99.0 [facility] StephenvilleSyzuafdRFBRQAPJVU6260-34-14 09:42:00 Test Item Value Reference Range Interpretation Comments RDW (test code = RDW) 16.3 11.5-14.5 [facility] StephenvilleZphaikjPDHCINUTEO1994-07-98 09:42:00 Test Item Value Reference Range Interpretation Comments MCHC (test code = MCHC) 34.3 32.0-36.0 [facility] StephenvilleSozgowiZGURUXBAGO7568-14-88 09:42:00 Test Item Value Reference Range Interpretation Comments Platelet (test code = Platelet) 167 133-450 [facility] StephenvilleGtlvpagJYPXKIFCYE1142-11-71 09:42:00 Test Item Value Reference Range Interpretation Comments MPV (test code = MPV) 7.9 7.4-10.4 [facility]villeWjuxmwwFNZQAVHQEF6915-10-79 09:42:00 Test Item Value Reference Range Interpretation Comments Eosinophils (test code = 1.6 See_Comment [A utomated message] The Eosinophils) system which ge nerated this result tra nsmitted reference range : <=4.0. The reference r jamaica was not used to int erpret this result as normal/abnormal . [facility] StephenvilleOxunifoPXFHDCMYLT4958-48-68 09:42:00 Test Item Value Reference Range Interpretation Comments Basophils (test code = 0.2 See_Comment [Aut omated message] The Basophils) system which ge nerated this result tra nsmitted reference range : <=1.0. The reference r j[place] was not used to int erpret this result as normal/abnormal . [facility]villeYummwzyQIQCKBNAMJ9237-01-21 09:42:00 Test Item Value Reference Range Interpretation Comments Segs-Bands # (test code = Segs-Bands #) 2.6 1.5-8.1 [facility] StephenvilleCloxdixZZGJIXXEJM6763-32-37 09:42:00 Test Item Value Reference Range Interpretation Comments Monocytes (test code = Monocytes) 7.4 2.0-12.0 [facility]villeYgtnnhvJHEKRBTVZQ3104-69-87 09:42:00 Test Item Value Reference Range Interpretation Comments Lymphocytes # (test code = Lymphocytes 1.3 1.0-5.5 #) [facility] StephenvilleFliduirDWCYMMFMDW6503-50-84 09:42:00 Test Item Value Reference Range Interpretation Comments Monocytes # (test code 0.3 See_Comment [Aut omated message] The = Monocytes #) system which generated this result tra nsmitted reference range : <=0.8. The reference r jamaica was not used to int erpret this result as normal/abnormal . [facility] StephenvilleUghsedwSVZPMZAMZA1439-46-19 09:42:00 Test Item Value Reference Range Interpretation Comments Eosinophils # (test code 0.1 See_Comment [A utomated message] The = Eosinophils #) system whic h generated this result tra nsmitted reference range : <=0.5. The reference r jamaica was not used to int erpret this result as normal/abnormal . [facility]villeXosjmawXYUXPZDEAY9442-20-54 09:42:00 Test Item Value Reference Range Interpretation Comments Basophils # (test code 0.0 See_Comment [Aut omated message] The = Basophils #) system which generated this result tra nsmitted reference range : <=0.2. The reference r jamaica was not used to int erpret this result as normal/abnormal . [facility] StephenvilleJuqzkjiIHFPGASZZO8814-94-55 09:42:00 Test Item Value Reference Range Interpretation Comments Lymphocytes (test code = Lymphocytes) 30.7 20.0-40.0 [facility]villeOafpwrxHUMYQFLKGC8582-95-77 09:42:00 Test Item Value Reference Range Interpretation Comments Segs (test code = Segs) 60.1 45.0-75.0 [place] 538464-05-07 09:42:00 Test Item Value Reference Range Interpretation Comments Magnesium Lvl (test code = Magnesium 2.0 1.8-2.4 Lvl) [facility]2014-05-07 09:42:00 Test Item Value Reference Range Interpretation Comments eGFR (test code = eGFR) 113 [facility]2014-05-07 09:42:00 Test Item Value Reference Range Interpretation Comments BUN (test code = BUN) 4 7-22 [place] 538464-05-07 09:42:00 Test Item Value Reference Range Interpretation Comments Potassium Lvl (test code = Potassium 3.8 3.5-5.1 Lvl) [facility]2014-05-07 09:42:00 Test Item Value Reference Range Interpretation Comments Creatinine Lvl (test code = Creatinine 0.5 0.5-1.4 Lvl) [facility]2014-05-07 09:42:00 Test Item Value Reference Range Interpretation Comments Glucose Lvl (test code = Glucose Lvl) 94 70-99 [facility]2014-05-07 09:42:00 Test Item Value Reference Range Interpretation Comments Sodium Lvl (test code = Sodium Lvl) 142 135-145 [facility]2014-05-07 09:42:00 Test Item Value Reference Range Interpretation Comments Calcium Lvl (test code = Calcium Lvl) 8.7 8.5-10.5 [facility]2014-05-07 09:42:00 Test Item Value Reference Range Interpretation Comments Chloride Lvl (test code = Chloride Lvl) 105 95-109 [facility]2014-05-07 09:42:00 Test Item Value Reference Range Interpretation Comments CO2 (test code = CO2) 30 24-32 [facility]2014-05-07 09:42:00 Test Item Value Reference Range Interpretation Comments AGAP (test code = AGAP) 10.8 10.0-20.0 [facility]villeMlruqlcHXGQKRDQPF3294-17-50 09:42:00 Test Item Value Reference Range Interpretation Comments WBC (test code = WBC) 4.4 3.7-10.4 [facility]villeYtdgttqASDBZIPRWA6212-05-11 09:42:00 Test Item Value Reference Range Interpretation Comments RBC (test code = RBC) 3.80 4.20-5.40 [facility] StephenvilleBsexpoxCWHPYTCGMQ7427-63-01 09:42:00 Test Item Value Reference Range Interpretation Comments MCH (test code = MCH) 31.1 pg 27.0-31.0 [facility]villeWypvrhzTTUWXNSZGN0998-50-83 09:42:00 Test Item Value Reference Range Interpretation Comments Hgb (test code = Hgb) 11.8 12.0-16.0 [facility] StephenvilleKqgnoauNMIVLANGVE2544-89-95 09:42:00 Test Item Value Reference Range Interpretation Comments Hct (test code = Hct) 34.5 36.0-48.0 [place] [facility]villeIbdcxxgXGJKRALHOQ1137-57-14 09:42:00 Test Item Value Reference Range Interpretation Comments MCV (test code = MCV) 90.6 81.0-99.0 [facility]villeGvaufzkMIUUXKCKEC4490-78-63 09:42:00 Test Item Value Reference Range Interpretation Comments RDW (test code = RDW) 16.3 11.5-14.5 [facility]villeMmiebhpCANWKQTLFZ4912-90-61 09:42:00 Test Item Value Reference Range Interpretation Comments MCHC (test code = MCHC) 34.3 32.0-36.0 [facility]villeOoomhokFLHEDKYXKR3744-79-28 09:42:00 Test Item Value Reference Range Interpretation Comments Platelet (test code = Platelet) 167 133-450 [facility]villeVzkqeriDTOZOJEICY7460-03-56 09:42:00 Test Item Value Reference Range Interpretation Comments MPV (test code = MPV) 7.9 7.4-10.4 [facility]villeXioanosDSNUHGEENC7024-09-77 09:42:00 Test Item Value Reference Range Interpretation Comments Eosinophils (test code = 1.6 See_Comment [A utomated message] The Eosinophils) system which ge nerated this result tra nsmitted reference range : <=4.0. The reference r jamaica was not used to int erpret this result as normal/abnormal . [facility]villeRsdnbgqOULFHUXXMN3525-15-59 09:42:00 Test Item Value Reference Range Interpretation Comments Basophils (test code = 0.2 See_Comment [Aut omated message] The Basophils) system which ge nerated this result tra nsmitted reference range : <=1.0. The reference r jamaica was not used to int erpret this result as normal/abnormal . [facility]villeNercapiNHDSILJKDA0322-24-61 09:42:00 Test Item Value Reference Range Interpretation Comments Segs-Bands # (test code = Segs-Bands #) 2.6 1.5-8.1 [facility]villeEtrpnmiJVXQFLVFMR5932-63-50 09:42:00 Test Item Value Reference Range Interpretation Comments Monocytes (test code = Monocytes) 7.4 2.0-12.0 [facility]villeEbxuxifQHUCUCUDAX3316-25-29 09:42:00 Test Item Value Reference Range Interpretation Comments Lymphocytes # (test code = Lymphocytes 1.3 1.0-5.5 #) [facility]villeOougolnOJHDYGJWIG5739-39-36 09:42:00 Test Item Value Reference Range Interpretation Comments Monocytes # (test code 0.3 See_Comment [Aut omated message] The = Monocytes #) system which generated this result tra nsmitted reference range : <=0.8. The reference r jamaica was not used to int erpret this result as normal/abnormal . [facility]villeKbbypbaRIMOXKUFOZ3640-40-80 09:42:00 Test Item Value Reference Range Interpretation Comments Eosinophils # (test code 0.1 See_Comment [A utomated message] The = Eosinophils #) system whic h generated this result tra nsmitted reference range : <=0.5. The reference r jamaica was not used to int erpret this result as normal/abnormal . [facility]villeDskmotcKPAISGNRJE4530-38-07 09:42:00 Test Item Value Reference Range Interpretation Comments Basophils # (test code 0.0 See_Comment [Aut omated message] The = Basophils #) system which generated this result tra nsmitted reference range : <=0.2. The reference r jamaica was not used to int erpret this result as normal/abnormal . [facility]villeDbrmpouHNASTUSOSY4404-90-30 09:42:00 Test Item Value Reference Range Interpretation Comments Lymphocytes (test code = Lymphocytes) 30.7 20.0-40.0 [facility]villeMiqunfoIIUFNUSRKU2832-20-28 09:42:00 Test Item Value Reference Range Interpretation Comments Segs (test code = Segs) 60.1 45.0-75.0 [facility]2014-05-07 09:42:00 Test Item Value Reference Range Interpretation Comments Magnesium Lvl (test code = Magnesium 2.0 1.8-2.4 Lvl) [place] 538464-05-07 09:42:00 Test Item Value Reference Range Interpretation Comments eGFR (test code = eGFR) 113 [place] 538464-05-07 09:42:00 Test Item Value Reference Range Interpretation Comments BUN (test code = BUN) 4 7-22 [place] [address]-05-07 09:42:00 Test Item Value Reference Range Interpretation Comments Potassium Lvl (test code = Potassium 3.8 3.5-5.1 Lvl) [place] 538464-05-07 09:42:00 Test Item Value Reference Range Interpretation Comments Creatinine Lvl (test code = Creatinine 0.5 0.5-1.4 Lvl) [place] 538464-05-07 09:42:00 Test Item Value Reference Range Interpretation Comments Glucose Lvl (test code = Glucose Lvl) 94 70-99 [place] 538464-05-07 09:42:00 Test Item Value Reference Range Interpretation Comments Sodium Lvl (test code = Sodium Lvl) 142 135-145 [facility]2014-05-07 09:42:00 Test Item Value Reference Range Interpretation Comments Calcium Lvl (test code = Calcium Lvl) 8.7 8.5-10.5 [facility]2014-05-07 09:42:00 Test Item Value Reference Range Interpretation Comments Chloride Lvl (test code = Chloride Lvl) 105 95-109 [place] 538464-05-07 09:42:00 Test Item Value Reference Range Interpretation Comments CO2 (test code = CO2) 30 24-32 [facility]2014-05-07 09:42:00 Test Item Value Reference Range Interpretation Comments AGAP (test code = AGAP) 10.8 10.0-20.0 [place] 238064-05-07 09:42:00 Test Item Value Reference Range Interpretation Comments WBC (test code = WBC) 4.4 3.7-10.4 [facility]villeCitkypsDYPKJIVRGT3813-86-24 09:42:00 Test Item Value Reference Range Interpretation Comments RBC (test code = RBC) 3.80 4.20-5.40 [place] [address]-05-07 09:42:00 Test Item Value Reference Range Interpretation Comments MCH (test code = MCH) 31.1 pg 27.0-31.0 [facility]villeCtcrckfUTWLDTLSZQ9118-66-81 09:42:00 Test Item Value Reference Range Interpretation Comments Hgb (test code = Hgb) 11.8 12.0-16.0 [facility]villeUbrlawbEJRWCRRABF5941-38-90 09:42:00 Test Item Value Reference Range Interpretation Comments Hct (test code = Hct) 34.5 36.0-48.0 [facility]villeWbxselzPDTVBGXHLL0801-38-54 09:42:00 Test Item Value Reference Range Interpretation Comments MCV (test code = MCV) 90.6 81.0-99.0 [facility]villeHznfvccMJZKIAUXBE5430-52-67 09:42:00 Test Item Value Reference Range Interpretation Comments RDW (test code = RDW) 16.3 11.5-14.5 [facility] StephenvilleFszngfdXRLZVXEVKA1390-07-64 09:42:00 Test Item Value Reference Range Interpretation Comments MCHC (test code = MCHC) 34.3 32.0-36.0 [facility]villeAjxttfqJTKHQQAUIB2288-71-34 09:42:00 Test Item Value Reference Range Interpretation Comments Platelet (test code = Platelet) 167 133-450 [facility]villeXgpeyxnHHJBNYQGIM7529-00-10 09:42:00 Test Item Value Reference Range Interpretation Comments MPV (test code = MPV) 7.9 7.4-10.4 [facility]villeOrgqyowWRMZIUQCEF8992-83-49 09:42:00 Test Item Value Reference Range Interpretation Comments Eosinophils (test code = 1.6 See_Comment [A utomated message] The Eosinophils) system which ge nerated this result tra nsmitted reference range : <=4.0. The reference r jamaica was not used to int erpret this result as normal/abnormal . [facility]villeGqiaehqOVCWTSFKCM1987-77-06 09:42:00 Test Item Value Reference Range Interpretation Comments Basophils (test code = 0.2 See_Comment [Aut omated message] The Basophils) system which ge nerated this result tra nsmitted reference range : <=1.0. The reference r jamaica was not used to int erpret this result as normal/abnormal . [facility]villeSmtifdhTRKTDNEVUZ9402-04-49 09:42:00 Test Item Value Reference Range Interpretation Comments Segs-Bands # (test code = Segs-Bands #) 2.6 1.5-8.1 [place] 238064-05-07 09:42:00 Test Item Value Reference Range Interpretation Comments Monocytes (test code = Monocytes) 7.4 2.0-12.0 [facility]villeTwdzpviFSHZGOXSTC1101-63-17 09:42:00 Test Item Value Reference Range Interpretation Comments Lymphocytes # (test code = Lymphocytes 1.3 1.0-5.5 #) [facility]villeUuddyiwGFOUIRJEPE2867-31-38 09:42:00 Test Item Value Reference Range Interpretation Comments Monocytes # (test code 0.3 See_Comment [Aut omated message] The = Monocytes #) system which generated this result tra nsmitted reference range : <=0.8. The reference r jamaica was not used to int erpret this result as normal/abnormal . [facility]villeRhdzlosPOADNSFKQP7224-85-07 09:42:00 Test Item Value Reference Range Interpretation Comments Eosinophils # (test code 0.1 See_Comment [A utomated message] The = Eosinophils #) system whic h generated this result tra nsmitted reference range : <=0.5. The reference r jamaica was not used to int erpret this result as normal/abnormal . [facility]villeCevmfmzGBLNHWJKQQ9635-04-68 09:42:00 Test Item Value Reference Range Interpretation Comments Basophils # (test code 0.0 See_Comment [Aut omated message] The = Basophils #) system which generated this result tra nsmitted reference range : <=0.2. The reference r jamaica was not used to int erpret this result as normal/abnormal . [facility]villeQkhvjceYQSWAEXCQT1198-83-10 09:42:00 Test Item Value Reference Range Interpretation Comments Lymphocytes (test code = Lymphocytes) 30.7 20.0-40.0 [place] 238064-05-07 09:42:00 Test Item Value Reference Range Interpretation Comments Segs (test code = Segs) 60.1 45.0-75.0 [facility]2014-05-07 09:42:00 Test Item Value Reference Range Interpretation Comments Magnesium Lvl (test code = Magnesium 2.0 1.8-2.4 Lvl) [facility]2014-05-07 09:42:00 Test Item Value Reference Range Interpretation Comments eGFR (test code = eGFR) 113 [facility]2014-05-07 09:42:00 Test Item Value Reference Range Interpretation Comments BUN (test code = BUN) 4 7-22 [facility]2014-05-07 09:42:00 Test Item Value Reference Range Interpretation Comments Potassium Lvl (test code = Potassium 3.8 3.5-5.1 Lvl) [place] 538464-05-07 09:42:00 Test Item Value Reference Range Interpretation Comments Creatinine Lvl (test code = Creatinine 0.5 0.5-1.4 Lvl) [place] [address]-05-07 09:42:00 Test Item Value Reference Range Interpretation Comments Glucose Lvl (test code = Glucose Lvl) 94 70-99 [place] [address]-05-07 09:42:00 Test Item Value Reference Range Interpretation Comments Sodium Lvl (test code = Sodium Lvl) 142 135-145 [place] 538464-05-07 09:42:00 Test Item Value Reference Range Interpretation Comments Calcium Lvl (test code = Calcium Lvl) 8.7 8.5-10.5 [place] 538464-05-07 09:42:00 Test Item Value Reference Range Interpretation Comments Chloride Lvl (test code = Chloride Lvl) 105 95-109 [facility]2014-05-07 09:42:00 Test Item Value Reference Range Interpretation Comments CO2 (test code = CO2) 30 24-32 [facility]2014-05-07 09:42:00 Test Item Value Reference Range Interpretation Comments AGAP (test code = AGAP) 10.8 10.0-20.0 [place] 238064-05-07 09:42:00 Test Item Value Reference Range Interpretation Comments WBC (test code = WBC) 4.4 3.7-10.4 [place] [address]-05-07 09:42:00 Test Item Value Reference Range Interpretation Comments RBC (test code = RBC) 3.80 4.20-5.40 [place] [address]-05-07 09:42:00 Test Item Value Reference Range Interpretation Comments MCH (test code = MCH) 31.1 pg 27.0-31.0 [place] [address]-05-07 09:42:00 Test Item Value Reference Range Interpretation Comments Hgb (test code = Hgb) 11.8 12.0-16.0 [facility]villeTvswmjzZNWXORZSEF8063-50-25 09:42:00 Test Item Value Reference Range Interpretation Comments Hct (test code = Hct) 34.5 36.0-48.0 [facility]villeCvrlwizFSQMILZKZJ2624-26-58 09:42:00 Test Item Value Reference Range Interpretation Comments MCV (test code = MCV) 90.6 81.0-99.0 [facility]villeOxhswquOPEWLYQLAQ9753-65-56 09:42:00 Test Item Value Reference Range Interpretation Comments RDW (test code = RDW) 16.3 11.5-14.5 [facility]villeAwywtdgGUVDWJLOUH0222-65-25 09:42:00 Test Item Value Reference Range Interpretation Comments MCHC (test code = MCHC) 34.3 32.0-36.0 [facility]villeGdcvneqQIFKBVIRVN5474-67-47 09:42:00 Test Item Value Reference Range Interpretation Comments Platelet (test code = Platelet) 167 133-450 [facility]villeRkpgadzAMOGUZSSUI1032-37-12 09:42:00 Test Item Value Reference Range Interpretation Comments MPV (test code = MPV) 7.9 7.4-10.4 [facility]villeAoqnfudOMRCATQCYO5503-83-00 09:42:00 Test Item Value Reference Range Interpretation Comments Eosinophils (test code = 1.6 See_Comment [A utomated message] The Eosinophils) system which ge nerated this result tra nsmitted reference range : <=4.0. The reference r jamaica was not used to int erpret this result as normal/abnormal . [facility]villeObstkruLHXPIPXTUA0649-84-97 09:42:00 Test Item Value Reference Range Interpretation Comments Basophils (test code = 0.2 See_Comment [Aut omated message] The Basophils) system which ge nerated this result tra nsmitted reference range : <=1.0. The reference r jamaica was not used to int erpret this result as normal/abnormal . [facility]villeRxluwvyMBKVSPARFK8222-56-95 09:42:00 Test Item Value Reference Range Interpretation Comments Segs-Bands # (test code = Segs-Bands #) 2.6 1.5-8.1 [facility]villeUfxqjfrSNWOIBWOIP7435-81-98 09:42:00 Test Item Value Reference Range Interpretation Comments Monocytes (test code = Monocytes) 7.4 2.0-12.0 [facility]villeMwctwhmABFBRNHTOC5283-98-01 09:42:00 Test Item Value Reference Range Interpretation Comments Lymphocytes # (test code = Lymphocytes 1.3 1.0-5.5 #) [facility]villeCjgbtebCNEEAUQRKP7024-56-74 09:42:00 Test Item Value Reference Range Interpretation Comments Monocytes # (test code 0.3 See_Comment [Aut omated message] The = Monocytes #) system which generated this result tra nsmitted reference range : <=0.8. The reference r jamaica was not used to int erpret this result as normal/abnormal . [place] [address]-05-07 09:42:00 Test Item Value Reference Range Interpretation Comments Eosinophils # (test code 0.1 See_Comment [A utomated message] The = Eosinophils #) system whic h generated this result tra nsmitted reference range : <=0.5. The reference r jamaica was not used to int erpret this result as normal/abnormal . [place] [address]-05-07 09:42:00 Test Item Value Reference Range Interpretation Comments Basophils # (test code 0.0 See_Comment [Aut omated message] The = Basophils #) system which generated this result tra nsmitted reference range : <=0.2. The reference r jamaica was not used to int erpret this result as normal/abnormal . [place] 238064-05-07 09:42:00 Test Item Value Reference Range Interpretation Comments Lymphocytes (test code = Lymphocytes) 30.7 20.0-40.0 [place] [address]-05-07 09:42:00 Test Item Value Reference Range Interpretation Comments Segs (test code = Segs) 60.1 45.0-75.0 [place] 538464-05-07 09:42:00 Test Item Value Reference Range Interpretation Comments Magnesium Lvl (test code = Magnesium 2.0 1.8-2.4 Lvl) [place] 538464-05-07 09:42:00 Test Item Value Reference Range Interpretation Comments eGFR (test code = eGFR) 113 [place] 538464-05-07 09:42:00 Test Item Value Reference Range Interpretation Comments BUN (test code = BUN) 4 7-22 [place] [address]-05-07 09:42:00 Test Item Value Reference Range Interpretation Comments Potassium Lvl (test code = Potassium 3.8 3.5-5.1 Lvl) [facility]2014-05-07 09:42:00 Test Item Value Reference Range Interpretation Comments Creatinine Lvl (test code = Creatinine 0.5 0.5-1.4 Lvl) [place] 538464-05-07 09:42:00 Test Item Value Reference Range Interpretation Comments Glucose Lvl (test code = Glucose Lvl) 94 70-99 [place] 538464-05-07 09:42:00 Test Item Value Reference Range Interpretation Comments Sodium Lvl (test code = Sodium Lvl) 142 135-145 [place] 538464-05-07 09:42:00 Test Item Value Reference Range Interpretation Comments Calcium Lvl (test code = Calcium Lvl) 8.7 8.5-10.5 [place] 538464-05-07 09:42:00 Test Item Value Reference Range Interpretation Comments Chloride Lvl (test code = Chloride Lvl) 105 95-109 [facility]2014-05-07 09:42:00 Test Item Value Reference Range Interpretation Comments CO2 (test code = CO2) 30 24-32 [facility]2014-05-07 09:42:00 Test Item Value Reference Range Interpretation Comments AGAP (test code = AGAP) 10.8 10.0-20.0 [facility]villeDphuuzsALKZMGFZGU2297-98-52 09:42:00 Test Item Value Reference Range Interpretation Comments WBC (test code = WBC) 4.4 3.7-10.4 [facility]villeEwiglwkEPMOUUYUPL3741-71-69 09:42:00 Test Item Value Reference Range Interpretation Comments RBC (test code = RBC) 3.80 4.20-5.40 [place] 238064-05-07 09:42:00 Test Item Value Reference Range Interpretation Comments MCH (test code = MCH) 31.1 pg 27.0-31.0 [facility]villeMbspbbsZMHVXZFBPT7725-85-34 09:42:00 Test Item Value Reference Range Interpretation Comments Hgb (test code = Hgb) 11.8 12.0-16.0 [place] [address]-05-07 09:42:00 Test Item Value Reference Range Interpretation Comments Hct (test code = Hct) 34.5 36.0-48.0 [place] 238064-05-07 09:42:00 Test Item Value Reference Range Interpretation Comments MCV (test code = MCV) 90.6 81.0-99.0 [facility] StephenvilleNttgsruSNPESEBIQN1779-94-75 09:42:00 Test Item Value Reference Range Interpretation Comments RDW (test code = RDW) 16.3 11.5-14.5 [facility]villeYhtpnlzQWQNYKZMJZ2565-46-02 09:42:00 Test Item Value Reference Range Interpretation Comments MCHC (test code = MCHC) 34.3 32.0-36.0 [facility]villeCctkkhoDTZEVLUFEW5050-68-22 09:42:00 Test Item Value Reference Range Interpretation Comments Platelet (test code = Platelet) 167 133-450 [facility]villeQvyvnonARNNAGUJKI7804-72-98 09:42:00 Test Item Value Reference Range Interpretation Comments MPV (test code = MPV) 7.9 7.4-10.4 [facility] StephenvilleUjijtszVDBLXYAOCF1544-99-72 09:42:00 Test Item Value Reference Range Interpretation Comments Eosinophils (test code = 1.6 See_Comment [A utomated message] The Eosinophils) system which ge nerated this result tra nsmitted reference range : <=4.0. The reference r jamaica was not used to int erpret this result as normal/abnormal . [facility] StephenvilleDuemywfGMLZUDCAGC9300-08-77 09:42:00 Test Item Value Reference Range Interpretation Comments Basophils (test code = 0.2 See_Comment [Aut omated message] The Basophils) system which ge nerated this result tra nsmitted reference range : <=1.0. The reference r jamaica was not used to int erpret this result as normal/abnormal . [facility]villeEgvuigmFYYXXHUABM4259-88-75 09:42:00 Test Item Value Reference Range Interpretation Comments Segs-Bands # (test code = Segs-Bands #) 2.6 1.5-8.1 [facility]villeKqtfknpZBKIGVGHOA5283-46-12 09:42:00 Test Item Value Reference Range Interpretation Comments Monocytes (test code = Monocytes) 7.4 2.0-12.0 [facility]villeKqleommJNCDIBHOZY1306-54-61 09:42:00 Test Item Value Reference Range Interpretation Comments Lymphocytes # (test code = Lymphocytes 1.3 1.0-5.5 #) [facility] StephenvilleIokdwzgXYSWJGKPPY0790-59-57 09:42:00 Test Item Value Reference Range Interpretation Comments Monocytes # (test code 0.3 See_Comment [Aut omated message] The = Monocytes #) system which generated this result tra nsmitted reference range : <=0.8. The reference r jamaica was not used to int erpret this result as normal/abnormal . [facility]villeMqadobhMULRJDPECB2938-16-19 09:42:00 Test Item Value Reference Range Interpretation Comments Eosinophils # (test code 0.1 See_Comment [A utomated message] The = Eosinophils #) system whic h generated this result tra nsmitted reference range : <=0.5. The reference r jamaica was not used to int erpret this result as normal/abnormal . [facility]villeBdtytphFCTPYRQNGO8624-09-66 09:42:00 Test Item Value Reference Range Interpretation Comments Basophils # (test code 0.0 See_Comment [Aut omated message] The = Basophils #) system which generated this result tra nsmitted reference range : <=0.2. The reference r jamaica was not used to int erpret this result as normal/abnormal . [facility] StephenvilleZzjyxrxAWKNKXZOGP0069-91-50 09:42:00 Test Item Value Reference Range Interpretation Comments Lymphocytes (test code = Lymphocytes) 30.7 20.0-40.0 [place] 238064-05-07 09:42:00 Test Item Value Reference Range Interpretation Comments Segs (test code = Segs) 60.1 45.0-75.0 [facility]2014-05-07 09:42:00 Test Item Value Reference Range Interpretation Comments Magnesium Lvl (test code = Magnesium 2.0 1.8-2.4 Lvl) [facility]2014-05-07 09:42:00 Test Item Value Reference Range Interpretation Comments eGFR (test code = eGFR) 113 [facility]2014-05-07 09:42:00 Test Item Value Reference Range Interpretation Comments BUN (test code = BUN) 4 7-22 [place] 538464-05-07 09:42:00 Test Item Value Reference Range Interpretation Comments Potassium Lvl (test code = Potassium 3.8 3.5-5.1 Lvl) [facility]2014-05-07 09:42:00 Test Item Value Reference Range Interpretation Comments Creatinine Lvl (test code = Creatinine 0.5 0.5-1.4 Lvl) [facility]2014-05-07 09:42:00 Test Item Value Reference Range Interpretation Comments Glucose Lvl (test code = Glucose Lvl) 94 70-99 [facility]2014-05-07 09:42:00 Test Item Value Reference Range Interpretation Comments Sodium Lvl (test code = Sodium Lvl) 142 135-145 [facility]2014-05-07 09:42:00 Test Item Value Reference Range Interpretation Comments Calcium Lvl (test code = Calcium Lvl) 8.7 8.5-10.5 [facility]2014-05-07 09:42:00 Test Item Value Reference Range Interpretation Comments Chloride Lvl (test code = Chloride Lvl) 105 95-109 [facility]2014-05-07 09:42:00 Test Item Value Reference Range Interpretation Comments CO2 (test code = CO2) 30 24-32 [facility]2014-05-07 09:42:00 Test Item Value Reference Range Interpretation Comments AGAP (test code = AGAP) 10.8 10.0-20.0 [place] 238064-05-07 09:42:00 Test Item Value Reference Range Interpretation Comments WBC (test code = WBC) 4.4 3.7-10.4 [facility]villeMyzkxzzJSMEDELKZI1680-64-54 09:42:00 Test Item Value Reference Range Interpretation Comments RBC (test code = RBC) 3.80 4.20-5.40 [facility] StephenvilleEitaoxpJHEAYPNEVB3348-82-44 09:42:00 Test Item Value Reference Range Interpretation Comments MCH (test code = MCH) 31.1 pg 27.0-31.0 [facility] StephenvilleNzoggobJFGJRTDVDI3843-92-96 09:42:00 Test Item Value Reference Range Interpretation Comments Hgb (test code = Hgb) 11.8 12.0-16.0 [facility]villeNeucqvsPEBVZWMNAP4102-74-07 09:42:00 Test Item Value Reference Range Interpretation Comments Hct (test code = Hct) 34.5 36.0-48.0 [facility]villeQtkiuqgKGXRUWXRNP1461-53-36 09:42:00 Test Item Value Reference Range Interpretation Comments MCV (test code = MCV) 90.6 81.0-99.0 [place] [address]-05-07 09:42:00 Test Item Value Reference Range Interpretation Comments RDW (test code = RDW) 16.3 11.5-14.5 [facility]villeApattngTAPXKURNFF4907-96-24 09:42:00 Test Item Value Reference Range Interpretation Comments MCHC (test code = MCHC) 34.3 32.0-36.0 [facility]villeYipugnfXJHDZAJWLC0405-40-49 09:42:00 Test Item Value Reference Range Interpretation Comments Platelet (test code = Platelet) 167 133-450 [facility]villeAonrgibHHDGKWDZZV4330-26-21 09:42:00 Test Item Value Reference Range Interpretation Comments MPV (test code = MPV) 7.9 7.4-10.4 [facility] StephenvilleUpgazzzUKJVAQDJYH9494-26-11 09:42:00 Test Item Value Reference Range Interpretation Comments Eosinophils (test code = 1.6 See_Comment [A utomated message] The Eosinophils) system which ge nerated this result tra nsmitted reference range : <=4.0. The reference r jamaica was not used to int erpret this result as normal/abnormal . [facility]villeWocghxeRVKMZRMSMO0062-88-95 09:42:00 Test Item Value Reference Range Interpretation Comments Basophils (test code = 0.2 See_Comment [Aut omated message] The Basophils) system which ge nerated this result tra nsmitted reference range : <=1.0. The reference r jamaica was not used to int erpret this result as normal/abnormal . [facility]villeYwyqigvIEJECCAQEM8924-98-59 09:42:00 Test Item Value Reference Range Interpretation Comments Segs-Bands # (test code = Segs-Bands #) 2.6 1.5-8.1 [facility]villeGfpgtwyMSYVUVSQVT6835-32-74 09:42:00 Test Item Value Reference Range Interpretation Comments Monocytes (test code = Monocytes) 7.4 2.0-12.0 [facility]villeXtptmccEBXQSHITOY4113-44-24 09:42:00 Test Item Value Reference Range Interpretation Comments Lymphocytes # (test code = Lymphocytes 1.3 1.0-5.5 #) [facility]villeCjwzprmBAANGMKEVT9402-46-19 09:42:00 Test Item Value Reference Range Interpretation Comments Monocytes # (test code 0.3 See_Comment [Aut omated message] The = Monocytes #) system which generated this result tra nsmitted reference range : <=0.8. The reference r jamaica was not used to int erpret this result as normal/abnormal . [facility] StephenvilleMiwhrohECDLKZEXBI6120-48-02 09:42:00 Test Item Value Reference Range Interpretation Comments Eosinophils # (test code 0.1 See_Comment [A utomated message] The = Eosinophils #) system whic h generated this result tra nsmitted reference range : <=0.5. The reference r jamaica was not used to int erpret this result as normal/abnormal . [facility] StephenvilleOgonkzhLBDYBFJVMB6773-80-59 09:42:00 Test Item Value Reference Range Interpretation Comments Basophils # (test code 0.0 See_Comment [Aut omated message] The = Basophils #) system which generated this result tra nsmitted reference range : <=0.2. The reference r jamaica was not used to int erpret this result as normal/abnormal . [facility]villeTafwjiyWCCEFFBKYU9665-56-43 09:42:00 Test Item Value Reference Range Interpretation Comments Lymphocytes (test code = Lymphocytes) 30.7 20.0-40.0 [facility] StephenvilleErklteqHBAORAZWRN9888-24-10 09:42:00 Test Item Value Reference Range Interpretation Comments Segs (test code = Segs) 60.1 45.0-75.0 [facility]2014-05-07 09:42:00 Test Item Value Reference Range Interpretation Comments Magnesium Lvl (test code = Magnesium 2.0 1.8-2.4 Lvl) [facility]2014-05-07 09:42:00 Test Item Value Reference Range Interpretation Comments eGFR (test code = eGFR) 113 [facility]2014-05-07 09:42:00 Test Item Value Reference Range Interpretation Comments BUN (test code = BUN) 4 7-22 [facility]2014-05-07 09:42:00 Test Item Value Reference Range Interpretation Comments Potassium Lvl (test code = Potassium 3.8 3.5-5.1 Lvl) [facility]2014-05-07 09:42:00 Test Item Value Reference Range Interpretation Comments Creatinine Lvl (test code = Creatinine 0.5 0.5-1.4 Lvl) [facility]2014-05-07 09:42:00 Test Item Value Reference Range Interpretation Comments Glucose Lvl (test code = Glucose Lvl) 94 70-99 [facility]2014-05-07 09:42:00 Test Item Value Reference Range Interpretation Comments Sodium Lvl (test code = Sodium Lvl) 142 135-145 [facility]2014-05-07 09:42:00 Test Item Value Reference Range Interpretation Comments Calcium Lvl (test code = Calcium Lvl) 8.7 8.5-10.5 [facility]2014-05-07 09:42:00 Test Item Value Reference Range Interpretation Comments Chloride Lvl (test code = Chloride Lvl) 105 95-109 [facility]2014-05-07 09:42:00 Test Item Value Reference Range Interpretation Comments CO2 (test code = CO2) 30 24-32 [facility]2014-05-07 09:42:00 Test Item Value Reference Range Interpretation Comments AGAP (test code = AGAP) 10.8 10.0-20.0 [facility]villeKujxvugEEYGPWNUNG5545-96-04 09:42:00 Test Item Value Reference Range Interpretation Comments WBC (test code = WBC) 4.4 3.7-10.4 [facility] StephenvilleLkylhbvAGEAJWKGPC2841-29-14 09:42:00 Test Item Value Reference Range Interpretation Comments RBC (test code = RBC) 3.80 4.20-5.40 [facility]villePnueujuGYSXHNVMMJ6514-87-58 09:42:00 Test Item Value Reference Range Interpretation Comments MCH (test code = MCH) 31.1 pg 27.0-31.0 [facility] StephenvilleJzgeuneQSEEWHLLHD8055-04-50 09:42:00 Test Item Value Reference Range Interpretation Comments Hgb (test code = Hgb) 11.8 12.0-16.0 [facility] StephenvilleQoaargrHFTKMJKZZA7331-39-37 09:42:00 Test Item Value Reference Range Interpretation Comments Hct (test code = Hct) 34.5 36.0-48.0 [facility]villeMgfouvlDYXTDTNSPE5382-21-08 09:42:00 Test Item Value Reference Range Interpretation Comments MCV (test code = MCV) 90.6 81.0-99.0 [facility]villeEzgudnkGRGGZVCCLG2616-97-56 09:42:00 Test Item Value Reference Range Interpretation Comments RDW (test code = RDW) 16.3 11.5-14.5 [facility] StephenvilleDwyacqtTOAGPPYEMF0658-31-65 09:42:00 Test Item Value Reference Range Interpretation Comments MCHC (test code = MCHC) 34.3 32.0-36.0 [facility]villeUiagppxYULEBFTYAE6144-53-59 09:42:00 Test Item Value Reference Range Interpretation Comments Platelet (test code = Platelet) 167 133-450 [facility] StephenvilleFyndqflGXCHWAAEVF6070-97-67 09:42:00 Test Item Value Reference Range Interpretation Comments MPV (test code = MPV) 7.9 7.4-10.4 [facility]villeTwtxsjaJIJZIGKVLB2512-09-23 09:42:00 Test Item Value Reference Range Interpretation Comments Eosinophils (test code = 1.6 See_Comment [A utomated message] The Eosinophils) system which ge nerated this result tra nsmitted reference range : <=4.0. The reference r jamaica was not used to int erpret this result as normal/abnormal . [facility]villePncltvkRAWGFYUMSK3932-25-03 09:42:00 Test Item Value Reference Range Interpretation Comments Basophils (test code = 0.2 See_Comment [Aut omated message] The Basophils) system which ge nerated this result tra nsmitted reference range : <=1.0. The reference r jamaica was not used to int erpret this result as normal/abnormal . [facility] StephenvilleIrmxpuxRIENMCEKHS1858-92-92 09:42:00 Test Item Value Reference Range Interpretation Comments Segs-Bands # (test code = Segs-Bands #) 2.6 1.5-8.1 [facility]villeTavinydXLMZAVUODY9137-67-65 09:42:00 Test Item Value Reference Range Interpretation Comments Monocytes (test code = Monocytes) 7.4 2.0-12.0 [facility] StephenvilleIjcmmgaUIKOBFDZKF9014-93-87 09:42:00 Test Item Value Reference Range Interpretation Comments Lymphocytes # (test code = Lymphocytes 1.3 1.0-5.5 #) [facility]villeChofnjvVYMLBOFJXV1643-83-66 09:42:00 Test Item Value Reference Range Interpretation Comments Monocytes # (test code 0.3 See_Comment [Aut omated message] The = Monocytes #) system which generated this result tra nsmitted reference range : <=0.8. The reference r jamaica was not used to int erpret this result as normal/abnormal . [facility]villeCbglgptHZJRUUORGP8271-31-55 09:42:00 Test Item Value Reference Range Interpretation Comments Eosinophils # (test code 0.1 See_Comment [A utomated message] The = Eosinophils #) system whic h generated this result tra nsmitted reference range : <=0.5. The reference r jamaica was not used to int erpret this result as normal/abnormal . [facility]villeXfzvzglEJABISSULN3149-01-96 09:42:00 Test Item Value Reference Range Interpretation Comments Basophils # (test code 0.0 See_Comment [Aut omated message] The = Basophils #) system which generated this result tra nsmitted reference range : <=0.2. The reference r jamaica was not used to int erpret this result as normal/abnormal . [place] [address]-05-07 09:42:00 Test Item Value Reference Range Interpretation Comments Lymphocytes (test code = Lymphocytes) 30.7 20.0-40.0 [place] 238064-05-07 09:42:00 Test Item Value Reference Range Interpretation Comments Segs (test code = Segs) 60.1 45.0-75.0 [facility]2014-05-07 09:42:00 Test Item Value Reference Range Interpretation Comments Magnesium Lvl (test code = Magnesium 2.0 1.8-2.4 Lvl) [facility]2014-05-07 09:42:00 Test Item Value Reference Range Interpretation Comments eGFR (test code = eGFR) 113 [facility]2014-05-07 09:42:00 Test Item Value Reference Range Interpretation Comments BUN (test code = BUN) 4 7-22 [facility]2014-05-07 09:42:00 Test Item Value Reference Range Interpretation Comments Potassium Lvl (test code = Potassium 3.8 3.5-5.1 Lvl) [facility]2014-05-07 09:42:00 Test Item Value Reference Range Interpretation Comments Creatinine Lvl (test code = Creatinine 0.5 0.5-1.4 Lvl) [facility]2014-05-07 09:42:00 Test Item Value Reference Range Interpretation Comments Glucose Lvl (test code = Glucose Lvl) 94 70-99 [facility]2014-05-07 09:42:00 Test Item Value Reference Range Interpretation Comments Sodium Lvl (test code = Sodium Lvl) 142 135-145 [facility]2014-05-07 09:42:00 Test Item Value Reference Range Interpretation Comments Calcium Lvl (test code = Calcium Lvl) 8.7 8.5-10.5 [facility]2014-05-07 09:42:00 Test Item Value Reference Range Interpretation Comments Chloride Lvl (test code = Chloride Lvl) 105 95-109 [facility]2014-05-07 09:42:00 Test Item Value Reference Range Interpretation Comments CO2 (test code = CO2) 30 24-32 [facility]2014-05-07 09:42:00 Test Item Value Reference Range Interpretation Comments AGAP (test code = AGAP) 10.8 10.0-20.0 [facility]villeKyqzjwaNARSJDHCOD8115-44-87 09:42:00 Test Item Value Reference Range Interpretation Comments WBC (test code = WBC) 4.4 3.7-10.4 [facility]villeHommwybRHOFSVDSYZ3680-58-42 09:42:00 Test Item Value Reference Range Interpretation Comments RBC (test code = RBC) 3.80 4.20-5.40 [facility]villeJvfoowjSPDVKSVLOR2841-95-84 09:42:00 Test Item Value Reference Range Interpretation Comments MCH (test code = MCH) 31.1 pg 27.0-31.0 [facility] StephenvilleJurlaqtLNNBCMWOVI8872-11-24 09:42:00 Test Item Value Reference Range Interpretation Comments Hgb (test code = Hgb) 11.8 12.0-16.0 [facility] StephenvilleBwhsldkJTCTNRMBPO6362-02-75 09:42:00 Test Item Value Reference Range Interpretation Comments Hct (test code = Hct) 34.5 36.0-48.0 [facility]villeDryqbsvDNBZSWOHFS6583-37-01 09:42:00 Test Item Value Reference Range Interpretation Comments MCV (test code = MCV) 90.6 81.0-99.0 [facility] StephenvilleVmcehqhSCRTOXLNVZ8652-78-35 09:42:00 Test Item Value Reference Range Interpretation Comments RDW (test code = RDW) 16.3 11.5-14.5 [place] 238064-05-07 09:42:00 Test Item Value Reference Range Interpretation Comments MCHC (test code = MCHC) 34.3 32.0-36.0 [facility]villeYohxnqfVJPPVKYIBQ6566-67-57 09:42:00 Test Item Value Reference Range Interpretation Comments Platelet (test code = Platelet) 167 133-450 [facility] StephenvilleUzfakscCKJLQQIMYP5620-99-76 09:42:00 Test Item Value Reference Range Interpretation Comments MPV (test code = MPV) 7.9 7.4-10.4 [facility]villeDonpvbcKIGFLVOLNC4811-42-14 09:42:00 Test Item Value Reference Range Interpretation Comments Eosinophils (test code = 1.6 See_Comment [A utomated message] The Eosinophils) system which ge nerated this result tra nsmitted reference range : <=4.0. The reference r jamaica was not used to int erpret this result as normal/abnormal . [facility] StephenvilleGkmshayJNOASBRYBE3562-37-50 09:42:00 Test Item Value Reference Range Interpretation Comments Basophils (test code = 0.2 See_Comment [Aut omated message] The Basophils) system which ge nerated this result tra nsmitted reference range : <=1.0. The reference r jamaica was not used to int erpret this result as normal/abnormal . [facility]villeJzjecyxRTUUMVTIOP7440-29-19 09:42:00 Test Item Value Reference Range Interpretation Comments Segs-Bands # (test code = Segs-Bands #) 2.6 1.5-8.1 [facility]villeNslhjanNWDSSXYUJG9313-45-81 09:42:00 Test Item Value Reference Range Interpretation Comments Monocytes (test code = Monocytes) 7.4 2.0-12.0 [facility]villeAtgrskeIHHAMIUZTA6340-06-01 09:42:00 Test Item Value Reference Range Interpretation Comments Lymphocytes # (test code = Lymphocytes 1.3 1.0-5.5 #) [facility]villePqeosjqGTWWQDUUIC2505-18-28 09:42:00 Test Item Value Reference Range Interpretation Comments Monocytes # (test code 0.3 See_Comment [Aut omated message] The = Monocytes #) system which generated this result tra nsmitted reference range : <=0.8. The reference r jamaica was not used to int erpret this result as normal/abnormal . [facility]villePunsisaGCQFHFZGHJ8142-89-91 09:42:00 Test Item Value Reference Range Interpretation Comments Eosinophils # (test code 0.1 See_Comment [A utomated message] The = Eosinophils #) system whic h generated this result tra nsmitted reference range : <=0.5. The reference r jamaica was not used to int erpret this result as normal/abnormal . [facility] StephenvilleRvxkusgJOFERGCFIQ3168-14-90 09:42:00 Test Item Value Reference Range Interpretation Comments Basophils # (test code 0.0 See_Comment [Aut omated message] The = Basophils #) system which generated this result tra nsmitted reference range : <=0.2. The reference r jamaica was not used to int erpret this result as normal/abnormal . [facility]villeNackahhCHWEHJHYKY3796-04-01 09:42:00 Test Item Value Reference Range Interpretation Comments Lymphocytes (test code = Lymphocytes) 30.7 20.0-40.0 [facility]villeDejwzyxEQMNRJCEAA0900-74-46 09:42:00 Test Item Value Reference Range Interpretation Comments Segs (test code = Segs) 60.1 45.0-75.0 [place] [address]-05-07 09:42:00 Test Item Value Reference Range Interpretation Comments Magnesium Lvl (test code = Magnesium 2.0 1.8-2.4 Lvl) [facility]2014-05-07 09:42:00 Test Item Value Reference Range Interpretation Comments eGFR (test code = eGFR) 113 [facility]2014-05-07 09:42:00 Test Item Value Reference Range Interpretation Comments BUN (test code = BUN) 4 7-22 [place] 538464-05-07 09:42:00 Test Item Value Reference Range Interpretation Comments Potassium Lvl (test code = Potassium 3.8 3.5-5.1 Lvl) [facility]2014-05-07 09:42:00 Test Item Value Reference Range Interpretation Comments Creatinine Lvl (test code = Creatinine 0.5 0.5-1.4 Lvl) [facility]2014-05-07 09:42:00 Test Item Value Reference Range Interpretation Comments Glucose Lvl (test code = Glucose Lvl) 94 70-99 [facility]2014-05-07 09:42:00 Test Item Value Reference Range Interpretation Comments Sodium Lvl (test code = Sodium Lvl) 142 135-145 [facility]2014-05-07 09:42:00 Test Item Value Reference Range Interpretation Comments Calcium Lvl (test code = Calcium Lvl) 8.7 8.5-10.5 [facility]2014-05-07 09:42:00 Test Item Value Reference Range Interpretation Comments Chloride Lvl (test code = Chloride Lvl) 105 95-109 [facility]2014-05-07 09:42:00 Test Item Value Reference Range Interpretation Comments CO2 (test code = CO2) 30 24-32 [facility]2014-05-07 09:42:00 Test Item Value Reference Range Interpretation Comments AGAP (test code = AGAP) 10.8 10.0-20.0 [facility]villeRvemnuxRBEPDAKFNP2396-07-47 09:42:00 Test Item Value Reference Range Interpretation Comments WBC (test code = WBC) 4.4 3.7-10.4 [facility]villeWkyvkjwUEHKIXSMXJ6330-09-86 09:42:00 Test Item Value Reference Range Interpretation Comments RBC (test code = RBC) 3.80 4.20-5.40 [facility]villeYeisasjSRSUCJIKWS2379-50-67 09:42:00 Test Item Value Reference Range Interpretation Comments MCH (test code = MCH) 31.1 pg 27.0-31.0 [facility] StephenvilleEhdzrswFQGKBZRMCU1748-09-07 09:42:00 Test Item Value Reference Range Interpretation Comments Hgb (test code = Hgb) 11.8 12.0-16.0 [facility] StephenvilleRiabglhIWHHFDWEZZ6563-84-82 09:42:00 Test Item Value Reference Range Interpretation Comments Hct (test code = Hct) 34.5 36.0-48.0 [facility]villeGszzzyaTWJOSPDPIC4539-89-84 09:42:00 Test Item Value Reference Range Interpretation Comments MCV (test code = MCV) 90.6 81.0-99.0 [facility] StephenvilleExeutrkNOBIPUTXMU6112-58-66 09:42:00 Test Item Value Reference Range Interpretation Comments RDW (test code = RDW) 16.3 11.5-14.5 [facility] StephenvilleDowewitDQJJATYRHJ9027-69-17 09:42:00 Test Item Value Reference Range Interpretation Comments MCHC (test code = MCHC) 34.3 32.0-36.0 [facility]villeCifnbppBMAOQFUDZF4073-27-28 09:42:00 Test Item Value Reference Range Interpretation Comments Platelet (test code = Platelet) 167 133-450 [facility] StephenvilleQzrqnpuTZSQAOXIZV5792-05-98 09:42:00 Test Item Value Reference Range Interpretation Comments MPV (test code = MPV) 7.9 7.4-10.4 [facility] StephenvilleRtvwpadSWIXZFCXEU1967-56-85 09:42:00 Test Item Value Reference Range Interpretation Comments Eosinophils (test code = 1.6 See_Comment [A utomated message] The Eosinophils) system which ge nerated this result tra nsmitted reference range : <=4.0. The reference r jamaica was not used to int erpret this result as normal/abnormal . [facility] StephenvilleMgchqupSSHERUSOJM2612-69-99 09:42:00 Test Item Value Reference Range Interpretation Comments Basophils (test code = 0.2 See_Comment [Aut omated message] The Basophils) system which ge nerated this result tra nsmitted reference range : <=1.0. The reference r jamaica was not used to int erpret this result as normal/abnormal . [facility] StephenvilleBtsygydPBKZCGHUVP1579-85-32 09:42:00 Test Item Value Reference Range Interpretation Comments Segs-Bands # (test code = Segs-Bands #) 2.6 1.5-8.1 [facility]villeKdbymqxOOPCJKPZBT9387-58-38 09:42:00 Test Item Value Reference Range Interpretation Comments Monocytes (test code = Monocytes) 7.4 2.0-12.0 [facility] StephenvilleBknknqqEOSNASMDCI0366-87-03 09:42:00 Test Item Value Reference Range Interpretation Comments Lymphocytes # (test code = Lymphocytes 1.3 1.0-5.5 #) [facility]villeXjklkifCKUDAMHGKM9927-50-71 09:42:00 Test Item Value Reference Range Interpretation Comments Monocytes # (test code 0.3 See_Comment [Aut omated message] The = Monocytes #) system which generated this result tra nsmitted reference range : <=0.8. The reference r jamaica was not used to int erpret this result as normal/abnormal . [facility] StephenvilleAbnyosxNQMVXOTZCE2718-02-61 09:42:00 Test Item Value Reference Range Interpretation Comments Eosinophils # (test code 0.1 See_Comment [A utomated message] The = Eosinophils #) system whic h generated this result tra nsmitted reference range : <=0.5. The reference r jamaica was not used to int erpret this result as normal/abnormal . [facility]villeIznjzvzESPKPKYHXO7166-86-69 09:42:00 Test Item Value Reference Range Interpretation Comments Basophils # (test code 0.0 See_Comment [Aut omated message] The = Basophils #) system which generated this result tra nsmitted reference range : <=0.2. The reference r jamaica was not used to int erpret this result as normal/abnormal . [facility]villeKwbttjkKCBVGDYFHK7242-84-82 09:42:00 Test Item Value Reference Range Interpretation Comments Lymphocytes (test code = Lymphocytes) 30.7 20.0-40.0 [facility]villeEjdjxosCWCUEBKHWJ5889-43-77 09:42:00 Test Item Value Reference Range Interpretation Comments Segs (test code = Segs) 60.1 45.0-75.0 [facility]2014-05-07 09:42:00 Test Item Value Reference Range Interpretation Comments Magnesium Lvl (test code = Magnesium 2.0 1.8-2.4 Lvl) [facility]2014-05-07 09:42:00 Test Item Value Reference Range Interpretation Comments eGFR (test code = eGFR) 113 [facility]2014-05-07 09:42:00 Test Item Value Reference Range Interpretation Comments BUN (test code = BUN) 4 7-22 [place] 538464-05-07 09:42:00 Test Item Value Reference Range Interpretation Comments Potassium Lvl (test code = Potassium 3.8 3.5-5.1 Lvl) [facility]2014-05-07 09:42:00 Test Item Value Reference Range Interpretation Comments Creatinine Lvl (test code = Creatinine 0.5 0.5-1.4 Lvl) [facility]2014-05-07 09:42:00 Test Item Value Reference Range Interpretation Comments Glucose Lvl (test code = Glucose Lvl) 94 70-99 [facility]2014-05-07 09:42:00 Test Item Value Reference Range Interpretation Comments Sodium Lvl (test code = Sodium Lvl) 142 135-145 [facility]2014-05-07 09:42:00 Test Item Value Reference Range Interpretation Comments Calcium Lvl (test code = Calcium Lvl) 8.7 8.5-10.5 [facility]2014-05-07 09:42:00 Test Item Value Reference Range Interpretation Comments Chloride Lvl (test code = Chloride Lvl) 105 95-109 [facility]2014-05-07 09:42:00 Test Item Value Reference Range Interpretation Comments CO2 (test code = CO2) 30 24-32 [facility]2014-05-07 09:42:00 Test Item Value Reference Range Interpretation Comments AGAP (test code = AGAP) 10.8 10.0-20.0 [facility]WfiessxHTPFIWBNNZ3693-91-56 09:42:00 Test Item Value Reference Range Interpretation Comments WBC (test code = WBC) 4.4 3.7-10.4 [facility]villeRgvtpxgNJAEPTHGPZ6874-87-15 09:42:00 Test Item Value Reference Range Interpretation Comments RBC (test code = RBC) 3.80 4.20-5.40 [facility]villeDwugzjcXBVYTKTCPB1719-29-24 09:42:00 Test Item Value Reference Range Interpretation Comments MCH (test code = MCH) 31.1 pg 27.0-31.0 [facility]villeScfwqmlGSDCQQATHK0550-40-55 09:42:00 Test Item Value Reference Range Interpretation Comments Hgb (test code = Hgb) 11.8 12.0-16.0 [facility]villeGcqujmvKLVEZQHCKA1520-20-31 09:42:00 Test Item Value Reference Range Interpretation Comments Hct (test code = Hct) 34.5 36.0-48.0 [facility]villeMtksnsfYRIOPJRSGU7690-19-38 09:42:00 Test Item Value Reference Range Interpretation Comments MCV (test code = MCV) 90.6 81.0-99.0 [facility] StephenvilleFikvuziYARJIYRRRR6594-11-57 09:42:00 Test Item Value Reference Range Interpretation Comments RDW (test code = RDW) 16.3 11.5-14.5 [facility]villeXsangrhUXAGUMGUTZ0687-05-96 09:42:00 Test Item Value Reference Range Interpretation Comments MCHC (test code = MCHC) 34.3 32.0-36.0 [facility]villeCsdtzfuSYYKQQMOZB1914-01-71 09:42:00 Test Item Value Reference Range Interpretation Comments Platelet (test code = Platelet) 167 133-450 [facility]villeCdzrivtCXTMHCZFIB1697-09-61 09:42:00 Test Item Value Reference Range Interpretation Comments MPV (test code = MPV) 7.9 7.4-10.4 [facility] StephenvilleZajsugiMHGYLGKQOK5004-47-49 09:42:00 Test Item Value Reference Range Interpretation Comments Eosinophils (test code = 1.6 See_Comment [A utomated message] The Eosinophils) system which ge nerated this result tra nsmitted reference range : <=4.0. The reference r j[place] was not used to int erpret this result as normal/abnormal . [facility]villeNhgcdoxHVIDNOHBDT7053-05-24 09:42:00 Test Item Value Reference Range Interpretation Comments Basophils (test code = 0.2 See_Comment [Aut omated message] The Basophils) system which ge nerated this result tra nsmitted reference range : <=1.0. The reference r j[place] was not used to int erpret this result as normal/abnormal . [facility] StephenvilleRtgshanDNALENEKFC7751-04-47 09:42:00 Test Item Value Reference Range Interpretation Comments Segs-Bands # (test code = Segs-Bands #) 2.6 1.5-8.1 [place] [address]-05-07 09:42:00 Test Item Value Reference Range Interpretation Comments Monocytes (test code = Monocytes) 7.4 2.0-12.0 [facility] StephenvilleIirgwwkBOOVTVBFRP0908-27-13 09:42:00 Test Item Value Reference Range Interpretation Comments Lymphocytes # (test code = Lymphocytes 1.3 1.0-5.5 #) [facility] StephenvilleWluphzzMNLILSAJVC5205-32-06 09:42:00 Test Item Value Reference Range Interpretation Comments Monocytes # (test code 0.3 See_Comment [Aut omated message] The = Monocytes #) system which generated this result tra nsmitted reference range : <=0.8. The reference r j[place] was not used to int erpret this result as normal/abnormal . [facility] StephenvilleEwwauijUCRLWDAIVB2935-46-47 09:42:00 Test Item Value Reference Range Interpretation Comments Eosinophils # (test code 0.1 See_Comment [A utomated message] The = Eosinophils #) system whic h generated this result tra nsmitted reference range : <=0.5. The reference r jama[place] was not used to int erpret this result as normal/abnormal . [facility]villeDfspkswHGQNFNMRRF7248-60-83 09:42:00 Test Item Value Reference Range Interpretation Comments Basophils # (test code 0.0 See_Comment [Aut omated message] The = Basophils #) system which generated this result tra nsmitted reference range : <=0.2. The reference r j[place] was not used to int erpret this result as normal/abnormal . [facility]villeVhcpmbaGQINOHVMWN5384-25-53 09:42:00 Test Item Value Reference Range Interpretation Comments Lymphocytes (test code = Lymphocytes) 30.7 20.0-40.0 [facility]villeTqxsaieGGCPLSFRPM9226-31-92 09:42:00 Test Item Value Reference Range Interpretation Comments Segs (test code = Segs) 60.1 45.0-75.0 [facility]2014-05-07 09:42:00 Test Item Value Reference Range Interpretation Comments Magnesium Lvl (test code = Magnesium 2.0 1.8-2.4 Lvl) [facility]2014-05-07 09:42:00 Test Item Value Reference Range Interpretation Comments eGFR (test code = eGFR) 113 [facility]2014-05-07 09:42:00 Test Item Value Reference Range Interpretation Comments BUN (test code = BUN) 4 7-22 [place] 538464-05-07 09:42:00 Test Item Value Reference Range Interpretation Comments Potassium Lvl (test code = Potassium 3.8 3.5-5.1 Lvl) [facility]2014-05-07 09:42:00 Test Item Value Reference Range Interpretation Comments Creatinine Lvl (test code = Creatinine 0.5 0.5-1.4 Lvl) [facility]2014-05-07 09:42:00 Test Item Value Reference Range Interpretation Comments Glucose Lvl (test code = Glucose Lvl) 94 70-99 [facility]2014-05-07 09:42:00 Test Item Value Reference Range Interpretation Comments Sodium Lvl (test code = Sodium Lvl) 142 135-145 [facility]2014-05-07 09:42:00 Test Item Value Reference Range Interpretation Comments Calcium Lvl (test code = Calcium Lvl) 8.7 8.5-10.5 [facility]2014-05-07 09:42:00 Test Item Value Reference Range Interpretation Comments Chloride Lvl (test code = Chloride Lvl) 105 95-109 [facility]2014-05-07 09:42:00 Test Item Value Reference Range Interpretation Comments CO2 (test code = CO2) 30 24-32 [facility]2014-05-07 09:42:00 Test Item Value Reference Range Interpretation Comments AGAP (test code = AGAP) 10.8 10.0-20.0 [facility] StephenvilleQoitfkzFWLWWTHMDA0189-09-03 09:42:00 Test Item Value Reference Range Interpretation Comments WBC (test code = WBC) 4.4 3.7-10.4 [facility]villeSbcdqpfSZLRLVGZLS6771-20-14 09:42:00 Test Item Value Reference Range Interpretation Comments RBC (test code = RBC) 3.80 4.20-5.40 [facility] StephenvilleEnjsureFFNAGSWBWN1766-59-74 09:42:00 Test Item Value Reference Range Interpretation Comments MCH (test code = MCH) 31.1 pg 27.0-31.0 [facility] StephenvilleNbhcdsvZTSFHPAGNK3614-26-67 09:42:00 Test Item Value Reference Range Interpretation Comments Hgb (test code = Hgb) 11.8 12.0-16.0 [facility] StephenvilleNhmegvtPVMQDPCYSY4886-16-26 09:42:00 Test Item Value Reference Range Interpretation Comments Hct (test code = Hct) 34.5 36.0-48.0 [facility] StephenvilleMxtzqtxEKGIYKCJKQ0977-58-00 09:42:00 Test Item Value Reference Range Interpretation Comments MCV (test code = MCV) 90.6 81.0-99.0 [facility]villeEgyiwrkUHGMVGJRMV1718-65-38 09:42:00 Test Item Value Reference Range Interpretation Comments RDW (test code = RDW) 16.3 11.5-14.5 [facility] StephenvilleFawaamuLAUIFPVBTU3824-39-41 09:42:00 Test Item Value Reference Range Interpretation Comments MCHC (test code = MCHC) 34.3 32.0-36.0 [facility]villeCndfzstUDBKYSZBMR4918-29-74 09:42:00 Test Item Value Reference Range Interpretation Comments Platelet (test code = Platelet) 167 133-450 [facility]villeAiwcqqfRGPJSUHHVA5210-71-87 09:42:00 Test Item Value Reference Range Interpretation Comments MPV (test code = MPV) 7.9 7.4-10.4 [facility] StephenvilleWkymipcAYBWOTPSEL7601-15-67 09:42:00 Test Item Value Reference Range Interpretation Comments Eosinophils (test code = 1.6 See_Comment [A utomated message] The Eosinophils) system which ge nerated this result tra nsmitted reference range : <=4.0. The reference r j[place] was not used to int erpret this result as normal/abnormal . [facility]villeFknskbwTCHANDGSSI6231-56-55 09:42:00 Test Item Value Reference Range Interpretation Comments Basophils (test code = 0.2 See_Comment [Aut omated message] The Basophils) system which ge nerated this result tra nsmitted reference range : <=1.0. The reference r j[place] was not used to int erpret this result as normal/abnormal . [facility]villeEjlhpxoHTICEDSZKW7236-10-55 09:42:00 Test Item Value Reference Range Interpretation Comments Segs-Bands # (test code = Segs-Bands #) 2.6 1.5-8.1 [facility] StephenvilleIsqirinAYXWMKNSVW8440-21-73 09:42:00 Test Item Value Reference Range Interpretation Comments Monocytes (test code = Monocytes) 7.4 2.0-12.0 [facility]villeVriqrohBXCXGPEUKE4961-55-45 09:42:00 Test Item Value Reference Range Interpretation Comments Lymphocytes # (test code = Lymphocytes 1.3 1.0-5.5 #) [facility]villeWmsffpzWXKQTZQPRE4199-45-50 09:42:00 Test Item Value Reference Range Interpretation Comments Monocytes # (test code 0.3 See_Comment [Aut omated message] The = Monocytes #) system which generated this result tra nsmitted reference range : <=0.8. The reference r j[place] was not used to int erpret this result as normal/abnormal . [facility] StephenvilleLhsqpfvETPNYOCJFU6992-93-89 09:42:00 Test Item Value Reference Range Interpretation Comments Eosinophils # (test code 0.1 See_Comment [A utomated message] The = Eosinophils #) system [facility] generated this result tra nsmitted reference range : <=0.5. The reference r j[place] was not used to int erpret this result as normal/abnormal . [facility]villeAfqoougNLHXOPFGQY2290-44-52 09:42:00 Test Item Value Reference Range Interpretation Comments Basophils # (test code 0.0 See_Comment [Aut omated message] The = Basophils #) system which generated this result tra nsmitted reference range : <=0.2. The reference r j[place] was not used to int erpret this result as normal/abnormal . [facility]villeSbjdhhfEZYTDDHHWX5165-40-58 09:42:00 Test Item Value Reference Range Interpretation Comments Lymphocytes (test code = Lymphocytes) 30.7 20.0-40.0 [facility]villeEmlwfxxOLSGOYQWJR7917-75-52 09:42:00 Test Item Value Reference Range Interpretation Comments Segs (test code = Segs) 60.1 45.0-75.0 [facility]2014-05-07 09:42:00 Test Item Value Reference Range Interpretation Comments Magnesium Lvl (test code = Magnesium 2.0 1.8-2.4 Lvl) [place] 538464-05-07 09:42:00 Test Item Value Reference Range Interpretation Comments eGFR (test code = eGFR) 113 [place] 538464-05-07 09:42:00 Test Item Value Reference Range Interpretation Comments BUN (test code = BUN) 4 7-22 [place] 538464-05-07 09:42:00 Test Item Value Reference Range Interpretation Comments Potassium Lvl (test code = Potassium 3.8 3.5-5.1 Lvl) [facility]2014-05-07 09:42:00 Test Item Value Reference Range Interpretation Comments Creatinine Lvl (test code = Creatinine 0.5 0.5-1.4 Lvl) [place] 538464-05-07 09:42:00 Test Item Value Reference Range Interpretation Comments Glucose Lvl (test code = Glucose Lvl) 94 70-99 [facility]2014-05-07 09:42:00 Test Item Value Reference Range Interpretation Comments Sodium Lvl (test code = Sodium Lvl) 142 135-145 [facility]2014-05-07 09:42:00 Test Item Value Reference Range Interpretation Comments Calcium Lvl (test code = Calcium Lvl) 8.7 8.5-10.5 [facility]2014-05-07 09:42:00 Test Item Value Reference Range Interpretation Comments Chloride Lvl (test code = Chloride Lvl) 105 95-109 [facility]2014-05-07 09:42:00 Test Item Value Reference Range Interpretation Comments CO2 (test code = CO2) 30 24-32 [place] 538464-05-07 09:42:00 Test Item Value Reference Range Interpretation Comments AGAP (test code = AGAP) 10.8 10.0-20.0 [facility]villeOtajkdlDKYISCYVEG2199-23-41 09:42:00 Test Item Value Reference Range Interpretation Comments WBC (test code = WBC) 4.4 3.7-10.4 [facility]villeQiqqbmhNWDWPDCQHX6043-20-94 09:42:00 Test Item Value Reference Range Interpretation Comments RBC (test code = RBC) 3.80 4.20-5.40 [facility]villeDdsuigxJIYANCGMIB8063-53-11 09:42:00 Test Item Value Reference Range Interpretation Comments MCH (test code = MCH) 31.1 pg 27.0-31.0 [facility]villeWwxybmuMXBUHWOKFM9443-97-68 09:42:00 Test Item Value Reference Range Interpretation Comments Hgb (test code = Hgb) 11.8 12.0-16.0 [facility] StephenvilleXkdkksrEMVCRCXQDJ7982-29-23 09:42:00 Test Item Value Reference Range Interpretation Comments Hct (test code = Hct) 34.5 36.0-48.0 [facility] StephenvilleNkpcbboJLCENKOGEK3797-86-41 09:42:00 Test Item Value Reference Range Interpretation Comments MCV (test code = MCV) 90.6 81.0-99.0 [facility]villeVkrcbjxJZSWVMSZOL1359-12-78 09:42:00 Test Item Value Reference Range Interpretation Comments RDW (test code = RDW) 16.3 11.5-14.5 [facility]villePdrpsniDKBWZZKIJK3108-19-96 09:42:00 Test Item Value Reference Range Interpretation Comments MCHC (test code = MCHC) 34.3 32.0-36.0 [facility] StephenvilleLyozxhtHNMXWEKRPR5919-74-49 09:42:00 Test Item Value Reference Range Interpretation Comments Platelet (test code = Platelet) 167 133-450 [facility] StephenvilleFnzkmmuRLCOXFDBYP4846-28-51 09:42:00 Test Item Value Reference Range Interpretation Comments MPV (test code = MPV) 7.9 7.4-10.4 [facility]villeXbzmmdzXIQVMKLNGT9503-11-45 09:42:00 Test Item Value Reference Range Interpretation Comments Eosinophils (test code = 1.6 See_Comment [A utomated message] The Eosinophils) system which ge nerated this result tra nsmitted reference range : <=4.0. The reference r j[place] was not used to int erpret this result as normal/abnormal . [facility]villeBytbsvbUGPSGVRYTF0200-85-07 09:42:00 Test Item Value Reference Range Interpretation Comments Basophils (test code = 0.2 See_Comment [Aut omated message] The Basophils) system which ge nerated this result tra nsmitted reference range : <=1.0. The reference r j[place] was not used to int erpret this result as normal/abnormal . [facility] StephenvilleYhmikguNLZJTYQDWO4289-02-46 09:42:00 Test Item Value Reference Range Interpretation Comments Segs-Bands # (test code = Segs-Bands #) 2.6 1.5-8.1 [facility]villeWqnkdmcSOLBEZGJHH5799-86-25 09:42:00 Test Item Value Reference Range Interpretation Comments Monocytes (test code = Monocytes) 7.4 2.0-12.0 [facility] StephenvilleUkbcpqqPDAUKTGRHM2011-65-45 09:42:00 Test Item Value Reference Range Interpretation Comments Lymphocytes # (test code = Lymphocytes 1.3 1.0-5.5 #) [facility]villeNztqxidQXFKPNIATL8881-71-81 09:42:00 Test Item Value Reference Range Interpretation Comments Monocytes # (test code 0.3 See_Comment [Aut omated message] The = Monocytes #) system which generated this result tra nsmitted reference range : <=0.8. The reference r j[place] was not used to int erpret this result as normal/abnormal . [facility] StephenvilleIrrljcfZPJACJBAVJ0442-74-85 09:42:00 Test Item Value Reference Range Interpretation Comments Eosinophils # (test code 0.1 See_Comment [A utomated message] The = Eosinophils #) system whic h generated this result tra nsmitted reference range : <=0.5. The reference r j[place] was not used to int erpret this result as normal/abnormal . [facility]villeEwliffjTETMKRKYQC7161-94-22 09:42:00 Test Item Value Reference Range Interpretation Comments Basophils # (test code 0.0 See_Comment [Aut omated message] The = Basophils #) system which generated this result tra nsmitted reference range : <=0.2. The reference r j[place] was not used to int erpret this result as normal/abnormal . [facility]villeOeuzorjFTLHPXLHAG8716-28-35 09:42:00 Test Item Value Reference Range Interpretation Comments Lymphocytes (test code = Lymphocytes) 30.7 20.0-40.0 [facility] StephenvilleLqylygsZKPAEXHZDO7515-28-90 09:42:00 Test Item Value Reference Range Interpretation Comments Segs (test code = Segs) 60.1 45.0-75.0 [place] 538464-05-07 09:42:00 Test Item Value Reference Range Interpretation Comments Magnesium Lvl (test code = Magnesium 2.0 1.8-2.4 Lvl) [facility]2014-05-07 09:42:00 Test Item Value Reference Range Interpretation Comments eGFR (test code = eGFR) 113 [facility]2014-05-07 09:42:00 Test Item Value Reference Range Interpretation Comments BUN (test code = BUN) 4 7-22 [place] [address]-05-07 09:42:00 Test Item Value Reference Range Interpretation Comments Potassium Lvl (test code = Potassium 3.8 3.5-5.1 Lvl) [facility]2014-05-07 09:42:00 Test Item Value Reference Range Interpretation Comments Creatinine Lvl (test code = Creatinine 0.5 0.5-1.4 Lvl) [place] 538464-05-07 09:42:00 Test Item Value Reference Range Interpretation Comments Glucose Lvl (test code = Glucose Lvl) 94 70-99 [facility]2014-05-07 09:42:00 Test Item Value Reference Range Interpretation Comments Sodium Lvl (test code = Sodium Lvl) 142 135-145 [facility]2014-05-07 09:42:00 Test Item Value Reference Range Interpretation Comments Calcium Lvl (test code = Calcium Lvl) 8.7 8.5-10.5 [facility]2014-05-07 09:42:00 Test Item Value Reference Range Interpretation Comments Chloride Lvl (test code = Chloride Lvl) 105 95-109 [facility]2014-05-07 09:42:00 Test Item Value Reference Range Interpretation Comments CO2 (test code = CO2) 30 24-32 [facility]2014-05-07 09:42:00 Test Item Value Reference Range Interpretation Comments AGAP (test code = AGAP) 10.8 10.0-20.0 [facility] StephenvilleSvehkzzKTMGKUAYMH7808-63-98 09:42:00 Test Item Value Reference Range Interpretation Comments WBC (test code = WBC) 4.4 3.7-10.4 [facility] StephenvilleJelzjehPETNRFFBVF6212-57-12 09:42:00 Test Item Value Reference Range Interpretation Comments RBC (test code = RBC) 3.80 4.20-5.40 [facility]villeSytjsfnMNBAGMPLPK3292-49-54 09:42:00 Test Item Value Reference Range Interpretation Comments MCH (test code = MCH) 31.1 pg 27.0-31.0 [facility] StephenvilleCknruuqZRDVKRDVVJ4092-84-47 09:42:00 Test Item Value Reference Range Interpretation Comments Hgb (test code = Hgb) 11.8 12.0-16.0 [facility] StephenvilleXhsumzzZRASCOOQDW3348-92-68 09:42:00 Test Item Value Reference Range Interpretation Comments Hct (test code = Hct) 34.5 36.0-48.0 [facility] StephenvilleFfatpgpNOWAFFGXXM0100-81-54 09:42:00 Test Item Value Reference Range Interpretation Comments MCV (test code = MCV) 90.6 81.0-99.0 [facility] StephenvilleNuketiyRYFFJPRGPK7291-84-53 09:42:00 Test Item Value Reference Range Interpretation Comments RDW (test code = RDW) 16.3 11.5-14.5 [facility]villeXldhhlfYUXCMPFNVO2013-66-02 09:42:00 Test Item Value Reference Range Interpretation Comments MCHC (test code = MCHC) 34.3 32.0-36.0 [facility] StephenvilleUmavgasAZUDXPTEJI7397-70-85 09:42:00 Test Item Value Reference Range Interpretation Comments Platelet (test code = Platelet) 167 133-450 [facility] StephenvilleVcjshdbNJBCJJBUHW4387-80-56 09:42:00 Test Item Value Reference Range Interpretation Comments MPV (test code = MPV) 7.9 7.4-10.4 [facility] StephenvilleKykqozmFNSGMFACSJ1247-87-80 09:42:00 Test Item Value Reference Range Interpretation Comments Eosinophils (test code = 1.6 See_Comment [A utomated message] The Eosinophils) system which ge nerated this result tra nsmitted reference range : <=4.0. The reference r j[place] was not used to int erpret this result as normal/abnormal . [facility] StephenvilleKfdmxujGZMWIALLZL7823-20-43 09:42:00 Test Item Value Reference Range Interpretation Comments Basophils (test code = 0.2 See_Comment [Aut omated message] The Basophils) system which ge nerated this result tra nsmitted reference range : <=1.0. The reference r j[place] was not used to int erpret this result as normal/abnormal . [facility] StephenvilleZobotilWETTRVFUFE3466-16-35 09:42:00 Test Item Value Reference Range Interpretation Comments Segs-Bands # (test code = Segs-Bands #) 2.6 1.5-8.1 [facility] StephenvilleBlklbxvBIGNKLGJIA8832-96-03 09:42:00 Test Item Value Reference Range Interpretation Comments Monocytes (test code = Monocytes) 7.4 2.0-12.0 [facility] StephenvilleHsfviceVOAKILQNRJ9991-87-61 09:42:00 Test Item Value Reference Range Interpretation Comments Lymphocytes # (test code = Lymphocytes 1.3 1.0-5.5 #) [facility] StephenvilleZlkjyosOLQINMFYWG2498-32-09 09:42:00 Test Item Value Reference Range Interpretation Comments Monocytes # (test code 0.3 See_Comment [Aut omated message] The = Monocytes #) system which generated this result tra nsmitted reference range : <=0.8. The reference r j[place] was not used to int erpret this result as normal/abnormal . [facility] StephenvilleQrrnpqqYWHLASVXXP7964-02-13 09:42:00 Test Item Value Reference Range Interpretation Comments Eosinophils # (test code 0.1 See_Comment [A utomated message] The = Eosinophils #) system whic h generated this result tra nsmitted reference range : <=0.5. The reference r j[place] was not used to int erpret this result as normal/abnormal . [facility] StephenvilleTlhrsasVFKELQDGRN0992-98-65 09:42:00 Test Item Value Reference Range Interpretation Comments Basophils # (test code 0.0 See_Comment [Aut omated message] The = Basophils #) system which generated this result tra nsmitted reference range : <=0.2. The reference r j[place] was not used to int erpret this result as normal/abnormal . [facility] StephenvillePiescbsLVMFJRTUZA3962-30-24 09:42:00 Test Item Value Reference Range Interpretation Comments Lymphocytes (test code = Lymphocytes) 30.7 20.0-40.0 [facility] [place]NwbjuaoLOBOSEWKPZ3332-88-80 09:42:00 Test Item Value Reference Range Interpretation Comments Segs (test code = Segs) 60.1 45.0-75.0 [facility]2014-05-07 09:42:00 Test Item Value Reference Range Interpretation Comments Magnesium Lvl (test code = Magnesium 2.0 1.8-2.4 Lvl) [facility] [place]villeSizdrycAHVYYVDCRU5917-96-58 09:42:00 Test Item Value Reference Range Interpretation Comments WBC (test code = WBC) 4.4 3.7-10.4 [facility] [place]villeUgvlddoQZTWLVHKPZ6268-95-25 09:42:00 Test Item Value Reference Range Interpretation Comments RBC (test code = RBC) 3.80 4.20-5.40 [facility] [place]villeMofxdyaWEAHSBDVNT2958-27-63 09:42:00 Test Item Value Reference Range Interpretation Comments MCH (test code = MCH) 31.1 pg 27.0-31.0 [facility] [place]villeUkyscijJLFKFWUXMP8193-44-53 09:42:00 Test Item Value Reference Range Interpretation Comments Hgb (test code = Hgb) 11.8 12.0-16.0 [facility] StephenvilleTnjpkjwQUJCLTSAJW8437-21-11 09:42:00 Test Item Value Reference Range Interpretation Comments Hct (test code = Hct) 34.5 36.0-48.0 [facility] StephenvilleIffhkkaTPMUMLMXIN7023-24-27 09:42:00 Test Item Value Reference Range Interpretation Comments MCV (test code = MCV) 90.6 81.0-99.0 [facility] [place]villeEvrrfhhWMFOPBRNIE9812-70-88 09:42:00 Test Item Value Reference Range Interpretation Comments RDW (test code = RDW) 16.3 11.5-14.5 [facility] StephenvilleHncxjwzMRBHOEUSZW7449-74-72 09:42:00 Test Item Value Reference Range Interpretation Comments MCHC (test code = MCHC) 34.3 32.0-36.0 [facility] StephenvilleTgrkneyTARDPYVFQE9689-36-78 09:42:00 Test Item Value Reference Range Interpretation Comments Platelet (test code = Platelet) 167 133-450 [facility] StephenvilleSoegfofNJUNZHFGWR7534-59-56 09:42:00 Test Item Value Reference Range Interpretation Comments MPV (test code = MPV) 7.9 7.4-10.4 [facility] StephenvilleDnatcabEILBYAPOII3983-28-92 09:42:00 Test Item Value Reference Range Interpretation Comments Eosinophils (test code = 1.6 See_Comment [A utomated message] The Eosinophils) system which ge nerated this result tra nsmitted reference range : <=4.0. The reference r jamaica was not used to int erpret this result as normal/abnormal . [facility] StephenvilleKtulsquNFNHYKUABU6241-21-51 09:42:00 Test Item Value Reference Range Interpretation Comments Basophils (test code = 0.2 See_Comment [Aut omated message] The Basophils) system which ge nerated this result tra nsmitted reference range : <=1.0. The reference r jamaica was not used to int erpret this result as normal/abnormal . [facility] StephenvilleFqihrqxKDPYOYPYSD3707-25-97 09:42:00 Test Item Value Reference Range Interpretation Comments Segs-Bands # (test code = Segs-Bands #) 2.6 1.5-8.1 [facility] StephenvilleDqrglazMVJJXGGGJI8889-14-50 09:42:00 Test Item Value Reference Range Interpretation Comments Monocytes (test code = Monocytes) 7.4 2.0-12.0 [facility] [place]villeObjyhnxFYOIYKEIDW5109-59-37 09:42:00 Test Item Value Reference Range Interpretation Comments Lymphocytes # (test code = Lymphocytes 1.3 1.0-5.5 #) [facility] StephenvilleQwgumzhVAEGZBQAWF7942-58-24 09:42:00 Test Item Value Reference Range Interpretation Comments Monocytes # (test code 0.3 See_Comment [Aut omated message] The = Monocytes #) system which generated this result tra nsmitted reference range : <=0.8. The reference r jamaica was not used to int erpret this result as normal/abnormal . [facility] StephenvilleLbzwmckYFSGBRAXUS6159-95-61 09:42:00 Test Item Value Reference Range Interpretation Comments Eosinophils # (test code 0.1 See_Comment [A utomated message] The = Eosinophils #) system [facility] generated this result tra nsmitted reference range : <=0.5. The reference r jamaica was not used to int erpret this result as normal/abnormal . [facility] StephenvilleFtlzkglDENTULEZOO9703-18-07 09:42:00 Test Item Value Reference Range Interpretation Comments Basophils # (test code 0.0 See_Comment [Aut omated message] The = Basophils #) system which generated this result tra nsmitted reference range : <=0.2. The reference r jamaica was not used to int erpret this result as normal/abnormal . [facility] [place]villeQhacxdjGMNAXVOEHJ1655-81-06 09:42:00 Test Item Value Reference Range Interpretation Comments Lymphocytes (test code = Lymphocytes) 30.7 20.0-40.0 [facility] StephenvilleNrgozrvJDMDTBENXA7726-75-31 09:42:00 Test Item Value Reference Range Interpretation Comments Segs (test code = Segs) 60.1 45.0-75.0 [facility]2014-05-07 09:42:00 Test Item Value Reference Range Interpretation Comments Magnesium Lvl (test code = Magnesium 2.0 1.8-2.4 Lvl) [facility]2014-05-07 09:42:00 Test Item Value Reference Range Interpretation Comments eGFR (test code = eGFR) 113 [facility]2014-05-07 09:42:00 Test Item Value Reference Range Interpretation Comments BUN (test code = BUN) 4 7-22 [facility]2014-05-07 09:42:00 Test Item Value Reference Range Interpretation Comments Potassium Lvl (test code = Potassium 3.8 3.5-5.1 Lvl) [facility]2014-05-07 09:42:00 Test Item Value Reference Range Interpretation Comments Creatinine Lvl (test code = Creatinine 0.5 0.5-1.4 Lvl) [facility]2014-05-07 09:42:00 Test Item Value Reference Range Interpretation Comments Glucose Lvl (test code = Glucose Lvl) 94 70-99 [facility]2014-05-07 09:42:00 Test Item Value Reference Range Interpretation Comments Sodium Lvl (test code = Sodium Lvl) 142 135-145 [facility]2014-05-07 09:42:00 Test Item Value Reference Range Interpretation Comments Calcium Lvl (test code = Calcium Lvl) 8.7 8.5-10.5 [facility]2014-05-07 09:42:00 Test Item Value Reference Range Interpretation Comments Chloride Lvl (test code = Chloride Lvl) 105 95-109 [facility]2014-05-07 09:42:00 Test Item Value Reference Range Interpretation Comments CO2 (test code = CO2) 30 24-32 [facility]2014-05-07 09:42:00 Test Item Value Reference Range Interpretation Comments AGAP (test code = AGAP) 10.8 10.0-20.0 [facility]2014-05-05 12:13:00 Test Item Value Reference Range Interpretation Comments Magnesium Lvl (test code = Magnesium 1.8 1.8-2.4 Lvl) [facility]2014-05-05 12:13:00 Test Item Value Reference Range Interpretation Comments Phosphorus (test code = Phosphorus) 2.6 2.5-4.5 [facility]2014-05-05 12:13:00 Test Item Value Reference Range Interpretation Comments Globulin (test code = Globulin) 2.8 2.0-4.0 [facility]2014-05-05 12:13:00 Test Item Value Reference Range Interpretation Comments A/G Ratio (test code = A/G Ratio) 1.2 0.7-1.6 [place] 538464-05-05 12:13:00 Test Item Value Reference Range Interpretation Comments B/C Ratio (test code = B/C Ratio) 10 6-25 [facility]2014-05-05 12:13:00 Test Item Value Reference Range Interpretation Comments AGAP (test code = AGAP) 6.9 10.0-20.0 [facility]2014-05-05 12:13:00 Test Item Value Reference Range Interpretation Comments eGFR (test code = eGFR) 101 [facility]2014-05-05 12:13:00 Test Item Value Reference Range Interpretation Comments Glucose Lvl (test code = Glucose Lvl) 84 70-99 [facility]2014-05-05 12:13:00 Test Item Value Reference Range Interpretation Comments Potassium Lvl (test code = Potassium 3.9 3.5-5.1 Lvl) [facility]2014-05-05 12:13:00 Test Item Value Reference Range Interpretation Comments Sodium Lvl (test code = Sodium Lvl) 141 135-145 [facility]2014-05-05 12:13:00 Test Item Value Reference Range Interpretation Comments Creatinine Lvl (test code = Creatinine 0.7 0.5-1.4 Lvl) [facility]2014-05-05 12:13:00 Test Item Value Reference Range Interpretation Comments BUN (test code = BUN) 7 7-22 [place] [id number] 12:13:00 Test Item Value Reference Range Interpretation Comments Bili Total (test code = Bili Total) 0.3 0.2-1.3 [place] 538464-05-05 12:13:00 Test Item Value Reference Range Interpretation Comments Alk Phos (test code = Alk Phos) 71 39-136 [facility]2014-05-05 12:13:00 Test Item Value Reference Range Interpretation Comments AST (test code = AST) 21 See_Comment [Auto mated message] The system which ge nerated this result transmit ulysses reference range : <=37. The reference range was not used to interpr et this result as sharron l/abnormal. [facility]2014-05-05 12:13:00 Test Item Value Reference Range Interpretation Comments ALT (test code = ALT) 20 See_Comment [Auto mated message] The system which ge nerated this result transmit ulysses reference range : <=65. The reference range was not used to interpr et this result as sharron l/abnormal. [facility]2014-05-05 12:13:00 Test Item Value Reference Range Interpretation Comments Total Protein (test code = Total 6.1 6.4-8.4 Protein) [facility]2014-05-05 12:13:00 Test Item Value Reference Range Interpretation Comments CO2 (test code = CO2) 33 24-32 [facility]2014-05-05 12:13:00 Test Item Value Reference Range Interpretation Comments Albumin Lvl (test code = Albumin Lvl) 3.3 3.5-5.0 [facility]2014-05-05 12:13:00 Test Item Value Reference Range Interpretation Comments Calcium Lvl (test code = Calcium Lvl) 8.4 8.5-10.5 [facility]2014-05-05 12:13:00 Test Item Value Reference Range Interpretation Comments Chloride Lvl (test code = Chloride Lvl) 105 95-109 [facility] StephenvilleAgrbzumBNWTVQLIPV1802-06-70 12:13:00 Test Item Value Reference Range Interpretation Comments Basophils # (test code 0.0 See_Comment [Aut omated message] The = Basophils #) system which generated this result tra nsmitted reference range : <=0.2. The reference r jamaica was not used to int erpret this result as normal/abnormal . [facility] [place]villeSyurzxzYEZOESHLIZ2673-13-04 12:13:00 Test Item Value Reference Range Interpretation Comments Segs (test code = Segs) 63.5 45.0-75.0 [facility] [place]villeLewehttMWZUELTSXD6001-29-30 12:13:00 Test Item Value Reference Range Interpretation Comments Monocytes # (test code 0.3 See_Comment [Aut omated message] The = Monocytes #) system which generated this result tra nsmitted reference range : <=0.8. The reference r jamaica was not used to int erpret this result as normal/abnormal . [facility] [place]villeFdzyurtNZGFCEXMMB8572-52-30 12:13:00 Test Item Value Reference Range Interpretation Comments Basophils (test code = 0.2 See_Comment [Aut omated message] The Basophils) system which ge nerated this result tra nsmitted reference range : <=1.0. The reference r jamaica was not used to int erpret this result as normal/abnormal . [facility] StephenvilleYyhqgyoGHOSKAUMRV6146-20-61 12:13:00 Test Item Value Reference Range Interpretation Comments Lymphocytes # (test code = Lymphocytes 1.5 1.0-5.5 #) [facility] [place]villeDrbbhtgMXVPZMRNEW4404-64-57 12:13:00 Test Item Value Reference Range Interpretation Comments Segs-Bands # (test code = Segs-Bands #) 3.3 1.5-8.1 [facility] [place]villeNjofhntLISTCSLNOX5894-42-00 12:13:00 Test Item Value Reference Range Interpretation Comments Eosinophils # (test code 0.1 See_Comment [A utomated message] The = Eosinophils #) system whic h generated this result tra nsmitted reference range : <=0.5. The reference r jamaica was not used to int erpret this result as normal/abnormal . [facility] [place]villeWqvtkcvKROHIOZKWY0094-14-26 12:13:00 Test Item Value Reference Range Interpretation Comments Lymphocytes (test code = Lymphocytes) 28.9 20.0-40.0 [facility] StephenvilleVanaqicDJPBYDOQJT8178-96-87 12:13:00 Test Item Value Reference Range Interpretation Comments Monocytes (test code = Monocytes) 6.2 2.0-12.0 [facility] [place]villeGswwrluYIGFCWHTPM2008-23-67 12:13:00 Test Item Value Reference Range Interpretation Comments Eosinophils (test code = 1.2 See_Comment [A utomated message] The Eosinophils) system which ge nerated this result tra nsmitted reference range : <=4.0. The reference r jamaica was not used to int erpret this result as normal/abnormal . [facility] StephenvilleUdwgtlyDNWYYLUYDC6159-85-22 12:13:00 Test Item Value Reference Range Interpretation Comments MCHC (test code = MCHC) 34.3 32.0-36.0 [facility] StephenvilleYsvfxqdTQCLYNIALS1545-40-81 12:13:00 Test Item Value Reference Range Interpretation Comments RDW (test code = RDW) 16.5 11.5-14.5 [facility] [place]villeEljwiyoGNTNYIXVUJ8080-99-76 12:13:00 Test Item Value Reference Range Interpretation Comments MCH (test code = MCH) 31.5 pg 27.0-31.0 [facility] StephenvilleRoiznorNXASRBJPQU6599-27-35 12:13:00 Test Item Value Reference Range Interpretation Comments MCV (test code = MCV) 91.9 81.0-99.0 [facility] StephenvilleBfsysvlYGCCRUYOUY6323-06-24 12:13:00 Test Item Value Reference Range Interpretation Comments Platelet (test code = Platelet) 177 133-450 [facility] [place]villeKjpbhqdJCSDWRLVTO2413-40-35 12:13:00 Test Item Value Reference Range Interpretation Comments MPV (test code = MPV) 7.9 7.4-10.4 [facility] StephenvilleUlqmxziVITKIWTQSJ2214-87-97 12:13:00 Test Item Value Reference Range Interpretation Comments RBC (test code = RBC) 3.91 4.20-5.40 [facility] [place]villeCgvqmzvOPVSFMLLDH7952-41-07 12:13:00 Test Item Value Reference Range Interpretation Comments Hct (test code = Hct) 35.9 36.0-48.0 [facility] StephenvilleTnpnuvkZNQBGXFEWC3198-61-01 12:13:00 Test Item Value Reference Range Interpretation Comments Hgb (test code = Hgb) 12.3 12.0-16.0 [facility] StephenvilleGfebneeGATEIYXNOY7638-93-28 12:13:00 Test Item Value Reference Range Interpretation Comments WBC (test code = WBC) 5.1 3.7-10.4 [facility]2014-05-05 12:13:00 Test Item Value Reference Range Interpretation Comments Magnesium Lvl (test code = Magnesium 1.8 1.8-2.4 Lvl) [facility]2014-05-05 12:13:00 Test Item Value Reference Range Interpretation Comments Phosphorus (test code = Phosphorus) 2.6 2.5-4.5 [facility]2014-05-05 12:13:00 Test Item Value Reference Range Interpretation Comments Globulin (test code = Globulin) 2.8 2.0-4.0 [facility]2014-05-05 12:13:00 Test Item Value Reference Range Interpretation Comments A/G Ratio (test code = A/G Ratio) 1.2 0.7-1.6 [facility]2014-05-05 12:13:00 Test Item Value Reference Range Interpretation Comments B/C Ratio (test code = B/C Ratio) 10 6-25 [facility]2014-05-05 12:13:00 Test Item Value Reference Range Interpretation Comments AGAP (test code = AGAP) 6.9 10.0-20.0 [facility]2014-05-05 12:13:00 Test Item Value Reference Range Interpretation Comments eGFR (test code = eGFR) 101 [facility]2014-05-05 12:13:00 Test Item Value Reference Range Interpretation Comments Glucose Lvl (test code = Glucose Lvl) 84 70-99 [facility]2014-05-05 12:13:00 Test Item Value Reference Range Interpretation Comments Potassium Lvl (test code = Potassium 3.9 3.5-5.1 Lvl) [facility]2014-05-05 12:13:00 Test Item Value Reference Range Interpretation Comments Sodium Lvl (test code = Sodium Lvl) 141 135-145 [facility]2014-05-05 12:13:00 Test Item Value Reference Range Interpretation Comments Creatinine Lvl (test code = Creatinine 0.7 0.5-1.4 Lvl) [facility]2014-05-05 12:13:00 Test Item Value Reference Range Interpretation Comments BUN (test code = BUN) 7 7-22 [place] 538464-05-05 12:13:00 Test Item Value Reference Range Interpretation Comments Bili Total (test code = Bili Total) 0.3 0.2-1.3 [facility]2014-05-05 12:13:00 Test Item Value Reference Range Interpretation Comments Alk Phos (test code = Alk Phos) 71 39-136 [facility]2014-05-05 12:13:00 Test Item Value Reference Range Interpretation Comments AST (test code = AST) 21 See_Comment [Auto mated message] The system which ge nerated this result transmit ulysses reference range : <=37. The reference range was not used to interpr et this result as sharron l/abnormal. [facility]2014-05-05 12:13:00 Test Item Value Reference Range Interpretation Comments ALT (test code = ALT) 20 See_Comment [Auto mated message] The system which ge nerated this result transmit ulysses reference range : <=65. The reference range was not used to interpr et this result as sharron l/abnormal. [facility]2014-05-05 12:13:00 Test Item Value Reference Range Interpretation Comments Total Protein (test code = Total 6.1 6.4-8.4 Protein) [facility]2014-05-05 12:13:00 Test Item Value Reference Range Interpretation Comments CO2 (test code = CO2) 33 24-32 [place] 538464-05-05 12:13:00 Test Item Value Reference Range Interpretation Comments Albumin Lvl (test code = Albumin Lvl) 3.3 3.5-5.0 [facility]2014-05-05 12:13:00 Test Item Value Reference Range Interpretation Comments Calcium Lvl (test code = Calcium Lvl) 8.4 8.5-10.5 [facility]2014-05-05 12:13:00 Test Item Value Reference Range Interpretation Comments Chloride Lvl (test code = Chloride Lvl) 105 95-109 [facility] StephenvilleXiryypqVHABYPLHTI9396-20-76 12:13:00 Test Item Value Reference Range Interpretation Comments Basophils # (test code 0.0 See_Comment [Aut omated message] The = Basophils #) system which generated this result tra nsmitted reference range : <=0.2. The reference r jamaica was not used to int erpret this result as normal/abnormal . [facility] StephenvilleVndwumoBCMJGVRVUR4915-59-51 12:13:00 Test Item Value Reference Range Interpretation Comments Segs (test code = Segs) 63.5 45.0-75.0 [facility] StephenvilleHtudvxjBVCJELGZRX9765-60-71 12:13:00 Test Item Value Reference Range Interpretation Comments Monocytes # (test code 0.3 See_Comment [Aut omated message] The = Monocytes #) system which generated this result tra nsmitted reference range : <=0.8. The reference r jamaica was not used to int erpret this result as normal/abnormal . [facility] StephenvilleDafrqkoSOAJYKSEXN9693-45-57 12:13:00 Test Item Value Reference Range Interpretation Comments Basophils (test code = 0.2 See_Comment [Aut omated message] The Basophils) system which ge nerated this result tra nsmitted reference range : <=1.0. The reference r jamaica was not used to int erpret this result as normal/abnormal . [facility] StephenvilleCvxqjrhESXHSJEWUR2078-07-01 12:13:00 Test Item Value Reference Range Interpretation Comments Lymphocytes # (test code = Lymphocytes 1.5 1.0-5.5 #) [facility] StephenvilleQowazipJCSXLUYYHL4543-37-03 12:13:00 Test Item Value Reference Range Interpretation Comments Segs-Bands # (test code = Segs-Bands #) 3.3 1.5-8.1 [facility] StephenvilleUchndhiVERIKNMPBR8688-59-84 12:13:00 Test Item Value Reference Range Interpretation Comments Eosinophils # (test code 0.1 See_Comment [A utomated message] The = Eosinophils #) system wh h generated this result tra nsmitted reference range : <=0.5. The reference r jamaica was not used to int erpret this result as normal/abnormal . [facility] StephenvilleNubqxfrXFYOJKKZPG8315-10-78 12:13:00 Test Item Value Reference Range Interpretation Comments Lymphocytes (test code = Lymphocytes) 28.9 20.0-40.0 [facility] StephenvillePhqojouNCMTSJJMFJ4503-43-59 12:13:00 Test Item Value Reference Range Interpretation Comments Monocytes (test code = Monocytes) 6.2 2.0-12.0 [facility] StephenvilleNxomcmyXNJZLDSSYE7769-21-27 12:13:00 Test Item Value Reference Range Interpretation Comments Eosinophils (test code = 1.2 See_Comment [A utomated message] The Eosinophils) system which ge nerated this result tra nsmitted reference range : <=4.0. The reference r jamaica was not used to int erpret this result as normal/abnormal . [facility] StephenvilleKrmkaetFGMDPARXIW4341-83-99 12:13:00 Test Item Value Reference Range Interpretation Comments MCHC (test code = MCHC) 34.3 32.0-36.0 [facility] StephenvilleYshohfwOJHTEUJGQW1579-44-39 12:13:00 Test Item Value Reference Range Interpretation Comments RDW (test code = RDW) 16.5 11.5-14.5 [facility] StephenvilleJdluqogVXZIMCHHHT2915-71-84 12:13:00 Test Item Value Reference Range Interpretation Comments MCH (test code = MCH) 31.5 pg 27.0-31.0 [facility] StephenvilleRnbzhftTVGGVCOCCU2403-41-29 12:13:00 Test Item Value Reference Range Interpretation Comments MCV (test code = MCV) 91.9 81.0-99.0 [facility] StephenvilleWlgkmoiSXIRALNFXG8899-51-55 12:13:00 Test Item Value Reference Range Interpretation Comments Platelet (test code = Platelet) 177 133-450 [facility] [place]villeSsrwkrbXKCYEFXZTL3525-95-11 12:13:00 Test Item Value Reference Range Interpretation Comments MPV (test code = MPV) 7.9 7.4-10.4 [facility] StephenvilleCkqfjhqYHTFBPDZFR1841-21-85 12:13:00 Test Item Value Reference Range Interpretation Comments RBC (test code = RBC) 3.91 4.20-5.40 [facility] StephenvilleRrvapqvCVNMORIJUW2463-99-71 12:13:00 Test Item Value Reference Range Interpretation Comments Hct (test code = Hct) 35.9 36.0-48.0 [facility] StephenvilleTomfewaBQGHDKFXPR7604-55-92 12:13:00 Test Item Value Reference Range Interpretation Comments Hgb (test code = Hgb) 12.3 12.0-16.0 [facility] StephenvilleQakllljDNTOWAICTX2701-01-31 12:13:00 Test Item Value Reference Range Interpretation Comments WBC (test code = WBC) 5.1 3.7-10.4 [facility]2014-05-05 12:13:00 Test Item Value Reference Range Interpretation Comments Magnesium Lvl (test code = Magnesium 1.8 1.8-2.4 Lvl) [facility]2014-05-05 12:13:00 Test Item Value Reference Range Interpretation Comments Phosphorus (test code = Phosphorus) 2.6 2.5-4.5 [facility]2014-05-05 12:13:00 Test Item Value Reference Range Interpretation Comments Globulin (test code = Globulin) 2.8 2.0-4.0 [facility]2014-05-05 12:13:00 Test Item Value Reference Range Interpretation Comments A/G Ratio (test code = A/G Ratio) 1.2 0.7-1.6 [place] 538464-05-05 12:13:00 Test Item Value Reference Range Interpretation Comments B/C Ratio (test code = B/C Ratio) 10 6-25 [place] 538464-05-05 12:13:00 Test Item Value Reference Range Interpretation Comments AGAP (test code = AGAP) 6.9 10.0-20.0 [id number] 12:13:00 Test Item Value Reference Range Interpretation Comments eGFR (test code = eGFR) 101 [facility]2014-05-05 12:13:00 Test Item Value Reference Range Interpretation Comments Glucose Lvl (test code = Glucose Lvl) 84 70-99 [facility]2014-05-05 12:13:00 Test Item Value Reference Range Interpretation Comments Potassium Lvl (test code = Potassium 3.9 3.5-5.1 Lvl) [place] 538464-05-05 12:13:00 Test Item Value Reference Range Interpretation Comments Sodium Lvl (test code = Sodium Lvl) 141 135-145 [place] 538464-05-05 12:13:00 Test Item Value Reference Range Interpretation Comments Creatinine Lvl (test code = Creatinine 0.7 0.5-1.4 Lvl) [facility]2014-05-05 12:13:00 Test Item Value Reference Range Interpretation Comments BUN (test code = BUN) 7 7-22 [place] 538464-05-05 12:13:00 Test Item Value Reference Range Interpretation Comments Bili Total (test code = Bili Total) 0.3 0.2-1.3 [facility]2014-05-05 12:13:00 Test Item Value Reference Range Interpretation Comments Alk Phos (test code = Alk Phos) 71 39-136 [facility]2014-05-05 12:13:00 Test Item Value Reference Range Interpretation Comments AST (test code = AST) 21 See_Comment [Auto mated message] The system which ge nerated this result transmit ulysses reference range : <=37. The reference range was not used to interpr et this result as sharron l/abnormal. [facility]2014-05-05 12:13:00 Test Item Value Reference Range Interpretation Comments ALT (test code = ALT) 20 See_Comment [Auto mated message] The system which ge nerated this result transmit ulysses reference range : <=65. The reference range was not used to interpr et this result as sharron l/abnormal. [facility]2014-05-05 12:13:00 Test Item Value Reference Range Interpretation Comments Total Protein (test code = Total 6.1 6.4-8.4 Protein) [facility]2014-05-05 12:13:00 Test Item Value Reference Range Interpretation Comments CO2 (test code = CO2) 33 24-32 [place] 538464-05-05 12:13:00 Test Item Value Reference Range Interpretation Comments Albumin Lvl (test code = Albumin Lvl) 3.3 3.5-5.0 [facility]2014-05-05 12:13:00 Test Item Value Reference Range Interpretation Comments Calcium Lvl (test code = Calcium Lvl) 8.4 8.5-10.5 [facility]2014-05-05 12:13:00 Test Item Value Reference Range Interpretation Comments Chloride Lvl (test code = Chloride Lvl) 105 95-109 [facility]villeGuvdplxRDZJJISJXK2224-40-56 12:13:00 Test Item Value Reference Range Interpretation Comments Basophils # (test code 0.0 See_Comment [Aut omated message] The = Basophils #) system which generated this result tra nsmitted reference range : <=0.2. The reference r j[place] was not used to int erpret this result as normal/abnormal . [facility]villeMchhvqvHOXIHXCSWA4729-07-22 12:13:00 Test Item Value Reference Range Interpretation Comments Segs (test code = Segs) 63.5 45.0-75.0 [facility] StephenvilleFtkiofgHJYUCWDACX5892-50-22 12:13:00 Test Item Value Reference Range Interpretation Comments Monocytes # (test code 0.3 See_Comment [Aut omated message] The = Monocytes #) system which generated this result tra nsmitted reference range : <=0.8. The reference r jamaica was not used to int erpret this result as normal/abnormal . [facility] StephenvilleSlrwpkhLHSGZKHAOZ9455-74-18 12:13:00 Test Item Value Reference Range Interpretation Comments Basophils (test code = 0.2 See_Comment [Aut omated message] The Basophils) system which ge nerated this result tra nsmitted reference range : <=1.0. The reference r jamaica was not used to int erpret this result as normal/abnormal . [facility] StephenvilleYdggsqwYOPOGLFWHO6870-88-01 12:13:00 Test Item Value Reference Range Interpretation Comments Lymphocytes # (test code = Lymphocytes 1.5 1.0-5.5 #) [facility]villeVxmzlktUQBRXMCABW4893-87-54 12:13:00 Test Item Value Reference Range Interpretation Comments Segs-Bands # (test code = Segs-Bands #) 3.3 1.5-8.1 [facility] StephenvilleUphxryyHVVZRFXDOF2481-36-19 12:13:00 Test Item Value Reference Range Interpretation Comments Eosinophils # (test code 0.1 See_Comment [A utomated message] The = Eosinophils #) system whic h generated this result tra nsmitted reference range : <=0.5. The reference r jamaica was not used to int erpret this result as normal/abnormal . [facility]villePunfprxQKXGDLEBCW0897-03-28 12:13:00 Test Item Value Reference Range Interpretation Comments Lymphocytes (test code = Lymphocytes) 28.9 20.0-40.0 [facility] StephenvilleDyzotikPIYVFGQXHW3300-22-33 12:13:00 Test Item Value Reference Range Interpretation Comments Monocytes (test code = Monocytes) 6.2 2.0-12.0 [facility] StephenvilleZjarutyAFLGHYRRMA7430-15-13 12:13:00 Test Item Value Reference Range Interpretation Comments Eosinophils (test code = 1.2 See_Comment [A utomated message] The Eosinophils) system which ge nerated this result tra nsmitted reference range : <=4.0. The reference r jamaica was not used to int erpret this result as normal/abnormal . [facility] StephenvilleQhebofjRIOJDXBDEJ0854-85-21 12:13:00 Test Item Value Reference Range Interpretation Comments MCHC (test code = MCHC) 34.3 32.0-36.0 [facility] StephenvilleKuvdakdBBRZPKBYGA9676-08-82 12:13:00 Test Item Value Reference Range Interpretation Comments RDW (test code = RDW) 16.5 11.5-14.5 [facility] StephenvilleZuslsjuUXWZLVDDTK3430-74-73 12:13:00 Test Item Value Reference Range Interpretation Comments MCH (test code = MCH) 31.5 pg 27.0-31.0 [facility] StephenvilleOzfxlsqSWDFIVXOIS0914-24-69 12:13:00 Test Item Value Reference Range Interpretation Comments MCV (test code = MCV) 91.9 81.0-99.0 [facility] StephenvilleKueiulsEJBDDFVIOE9481-82-88 12:13:00 Test Item Value Reference Range Interpretation Comments Platelet (test code = Platelet) 177 133-450 [facility] StephenvilleBwxiuhxMSGFVGLGLJ3014-00-85 12:13:00 Test Item Value Reference Range Interpretation Comments MPV (test code = MPV) 7.9 7.4-10.4 [facility] StephenvilleUywpznxWOGOSROOBY9415-53-80 12:13:00 Test Item Value Reference Range Interpretation Comments RBC (test code = RBC) 3.91 4.20-5.40 [facility] StephenvilleLuyvaebDDWDICWEEU4644-08-53 12:13:00 Test Item Value Reference Range Interpretation Comments Hct (test code = Hct) 35.9 36.0-48.0 [facility] StephenvilleNnlcnurMSBCXYIQKO9582-84-53 12:13:00 Test Item Value Reference Range Interpretation Comments Hgb (test code = Hgb) 12.3 12.0-16.0 [facility] StephenvilleFzjsdxkUQOQHDDHXS1900-89-31 12:13:00 Test Item Value Reference Range Interpretation Comments WBC (test code = WBC) 5.1 3.7-10.4 [facility]2014-05-05 12:13:00 Test Item Value Reference Range Interpretation Comments Magnesium Lvl (test code = Magnesium 1.8 1.8-2.4 Lvl) [facility]2014-05-05 12:13:00 Test Item Value Reference Range Interpretation Comments Phosphorus (test code = Phosphorus) 2.6 2.5-4.5 [facility]2014-05-05 12:13:00 Test Item Value Reference Range Interpretation Comments Globulin (test code = Globulin) 2.8 2.0-4.0 [facility]2014-05-05 12:13:00 Test Item Value Reference Range Interpretation Comments A/G Ratio (test code = A/G Ratio) 1.2 0.7-1.6 [facility]2014-05-05 12:13:00 Test Item Value Reference Range Interpretation Comments B/C Ratio (test code = B/C Ratio) 10 6-25 [facility]2014-05-05 12:13:00 Test Item Value Reference Range Interpretation Comments AGAP (test code = AGAP) 6.9 10.0-20.0 [facility]2014-05-05 12:13:00 Test Item Value Reference Range Interpretation Comments eGFR (test code = eGFR) 101 [facility]2014-05-05 12:13:00 Test Item Value Reference Range Interpretation Comments Glucose Lvl (test code = Glucose Lvl) 84 70-99 [facility]2014-05-05 12:13:00 Test Item Value Reference Range Interpretation Comments Potassium Lvl (test code = Potassium 3.9 3.5-5.1 Lvl) [facility]2014-05-05 12:13:00 Test Item Value Reference Range Interpretation Comments Sodium Lvl (test code = Sodium Lvl) 141 135-145 [facility]2014-05-05 12:13:00 Test Item Value Reference Range Interpretation Comments Creatinine Lvl (test code = Creatinine 0.7 0.5-1.4 Lvl) [facility]2014-05-05 12:13:00 Test Item Value Reference Range Interpretation Comments BUN (test code = BUN) 7 7-22 [place]38464-05-05 12:13:00 Test Item Value Reference Range Interpretation Comments Bili Total (test code = Bili Total) 0.3 0.2-1.3 [place]38464-05-05 12:13:00 Test Item Value Reference Range Interpretation Comments Alk Phos (test code = Alk Phos) 71 39-136 [facility]2014-05-05 12:13:00 Test Item Value Reference Range Interpretation Comments AST (test code = AST) 21 See_Comment [Auto mated message] The system which ge nerated this result transmit ulysses reference range : <=37. The reference range was not used to interpr et this result as sharron l/abnormal. [place]38464-05-05 12:13:00 Test Item Value Reference Range Interpretation Comments ALT (test code = ALT) 20 See_Comment [Auto mated message] The system which ge nerated this result transmit ulysses reference range : <=65. The reference range was not used to interpr et this result as sharron l/abnormal. [facility]2014-05-05 12:13:00 Test Item Value Reference Range Interpretation Comments Total Protein (test code = Total 6.1 6.4-8.4 Protein) [facility]2014-05-05 12:13:00 Test Item Value Reference Range Interpretation Comments CO2 (test code = CO2) 33 24-32 [facility]2014-05-05 12:13:00 Test Item Value Reference Range Interpretation Comments Albumin Lvl (test code = Albumin Lvl) 3.3 3.5-5.0 [facility]2014-05-05 12:13:00 Test Item Value Reference Range Interpretation Comments Calcium Lvl (test code = Calcium Lvl) 8.4 8.5-10.5 [facility]2014-05-05 12:13:00 Test Item Value Reference Range Interpretation Comments Chloride Lvl (test code = Chloride Lvl) 105 95-109 [facility] StephenvilleHykrzehNQNLLZYOVA7566-54-33 12:13:00 Test Item Value Reference Range Interpretation Comments Basophils # (test code 0.0 See_Comment [Aut omated message] The = Basophils #) system which generated this result tra nsmitted reference range : <=0.2. The reference r j[place] was not used to int erpret this result as normal/abnormal . [facility] StephenvilleZdcitqkQCRLAVOUTS4702-71-78 12:13:00 Test Item Value Reference Range Interpretation Comments Segs (test code = Segs) 63.5 45.0-75.0 [facility] StephenvilleLlrxuroZSHFXAXTBI4350-93-90 12:13:00 Test Item Value Reference Range Interpretation Comments Monocytes # (test code 0.3 See_Comment [Aut omated message] The = Monocytes #) system which generated this result tra nsmitted reference range : <=0.8. The reference r jama[place] was not used to int erpret this result as normal/abnormal . [facility] StephenvilleSgrawboHLRTTUOHZB7588-74-36 12:13:00 Test Item Value Reference Range Interpretation Comments Basophils (test code = 0.2 See_Comment [Aut omated message] The Basophils) system which ge nerated this result tra nsmitted reference range : <=1.0. The reference r jamaica was not used to int erpret this result as normal/abnormal . [facility] StephenvilleEklexszSLFDJXZRVO6581-09-92 12:13:00 Test Item Value Reference Range Interpretation Comments Lymphocytes # (test code = Lymphocytes 1.5 1.0-5.5 #) [facility] StephenvilleRinjhhbKCAPOAFXML7126-60-49 12:13:00 Test Item Value Reference Range Interpretation Comments Segs-Bands # (test code = Segs-Bands #) 3.3 1.5-8.1 [facility] StephenvilleFhfwbvbPITKHIKEQS9270-43-28 12:13:00 Test Item Value Reference Range Interpretation Comments Eosinophils # (test code 0.1 See_Comment [A utomated message] The = Eosinophils #) system whic h generated this result tra nsmitted reference range : <=0.5. The reference r j[place] was not used to int erpret this result as normal/abnormal . [facility] StephenvilleNtyvalhOGOXPLKWHL1164-70-08 12:13:00 Test Item Value Reference Range Interpretation Comments Lymphocytes (test code = Lymphocytes) 28.9 20.0-40.0 [facility] StephenvilleVgkphczRMBZZNRHQB4803-35-45 12:13:00 Test Item Value Reference Range Interpretation Comments Monocytes (test code = Monocytes) 6.2 2.0-12.0 [facility] StephenvilleVqaupwaPWGTMUVEWP0592-62-36 12:13:00 Test Item Value Reference Range Interpretation Comments Eosinophils (test code = 1.2 See_Comment [A utomated message] The Eosinophils) system which ge nerated this result tra nsmitted reference range : <=4.0. The reference r jama[place] was not used to int erpret this result as normal/abnormal . [facility] StephenvilleAzxsbbfVAGOPVFHVR9031-44-69 12:13:00 Test Item Value Reference Range Interpretation Comments MCHC (test code = MCHC) 34.3 32.0-36.0 [facility] StephenvilleYlykijvZGYDJDXUFV5560-38-81 12:13:00 Test Item Value Reference Range Interpretation Comments RDW (test code = RDW) 16.5 11.5-14.5 [facility] StephenvilleHfucczlFFQUPQRVAT8829-54-09 12:13:00 Test Item Value Reference Range Interpretation Comments MCH (test code = MCH) 31.5 pg 27.0-31.0 [facility] StephenvilleRrhehgaDYRIFMJGTK4612-60-15 12:13:00 Test Item Value Reference Range Interpretation Comments MCV (test code = MCV) 91.9 81.0-99.0 [facility] StephenvilleNeunobkCOBWHLARNL9502-88-76 12:13:00 Test Item Value Reference Range Interpretation Comments Platelet (test code = Platelet) 177 133-450 [facility] StephenvilleNkslpneCAFTVWAERP4207-17-01 12:13:00 Test Item Value Reference Range Interpretation Comments MPV (test code = MPV) 7.9 7.4-10.4 [facility] StephenvilleJwhsyrwVDLQFUXSBD7334-02-93 12:13:00 Test Item Value Reference Range Interpretation Comments RBC (test code = RBC) 3.91 4.20-5.40 [facility] StephenvilleTaareyvKSNMSNVJMN7936-40-99 12:13:00 Test Item Value Reference Range Interpretation Comments Hct (test code = Hct) 35.9 36.0-48.0 [facility] StephenvilleMrbarugSCTFZRGMKE8484-84-08 12:13:00 Test Item Value Reference Range Interpretation Comments Hgb (test code = Hgb) 12.3 12.0-16.0 [facility] StephenvilleZlgpwmfHPAXMQERSD2543-88-15 12:13:00 Test Item Value Reference Range Interpretation Comments WBC (test code = WBC) 5.1 3.7-10.4 [facility]2014-05-05 12:13:00 Test Item Value Reference Range Interpretation Comments Magnesium Lvl (test code = Magnesium 1.8 1.8-2.4 Lvl) [facility]2014-05-05 12:13:00 Test Item Value Reference Range Interpretation Comments Phosphorus (test code = Phosphorus) 2.6 2.5-4.5 [facility]2014-05-05 12:13:00 Test Item Value Reference Range Interpretation Comments Globulin (test code = Globulin) 2.8 2.0-4.0 [facility]2014-05-05 12:13:00 Test Item Value Reference Range Interpretation Comments A/G Ratio (test code = A/G Ratio) 1.2 0.7-1.6 [facility]2014-05-05 12:13:00 Test Item Value Reference Range Interpretation Comments B/C Ratio (test code = B/C Ratio) 10 6-25 [facility]2014-05-05 12:13:00 Test Item Value Reference Range Interpretation Comments AGAP (test code = AGAP) 6.9 10.0-20.0 [facility]2014-05-05 12:13:00 Test Item Value Reference Range Interpretation Comments eGFR (test code = eGFR) 101 [facility]2014-05-05 12:13:00 Test Item Value Reference Range Interpretation Comments Glucose Lvl (test code = Glucose Lvl) 84 70-99 [facility]2014-05-05 12:13:00 Test Item Value Reference Range Interpretation Comments Potassium Lvl (test code = Potassium 3.9 3.5-5.1 Lvl) [facility]2014-05-05 12:13:00 Test Item Value Reference Range Interpretation Comments Sodium Lvl (test code = Sodium Lvl) 141 135-145 [facility]2014-05-05 12:13:00 Test Item Value Reference Range Interpretation Comments Creatinine Lvl (test code = Creatinine 0.7 0.5-1.4 Lvl) [facility]2014-05-05 12:13:00 Test Item Value Reference Range Interpretation Comments BUN (test code = BUN) 7 7-22 [place]38464-05-05 12:13:00 Test Item Value Reference Range Interpretation Comments Bili Total (test code = Bili Total) 0.3 0.2-1.3 [place]38464-05-05 12:13:00 Test Item Value Reference Range Interpretation Comments Alk Phos (test code = Alk Phos) 71 39-136 [place]38464-05-05 12:13:00 Test Item Value Reference Range Interpretation Comments AST (test code = AST) 21 See_Comment [Auto mated message] The system which ge nerated this result transmit ulysses reference range : <=37. The reference range was not used to interpr et this result as sharron l/abnormal. [place]38464-05-05 12:13:00 Test Item Value Reference Range Interpretation Comments ALT (test code = ALT) 20 See_Comment [Auto mated message] The system which ge nerated this result transmit ulysses reference range : <=65. The reference range was not used to interpr et this result as sharron l/abnormal. [place]38464-05-05 12:13:00 Test Item Value Reference Range Interpretation Comments Total Protein (test code = Total 6.1 6.4-8.4 Protein) [place]38464-05-05 12:13:00 Test Item Value Reference Range Interpretation Comments CO2 (test code = CO2) 33 24-32 [facility]2014-05-05 12:13:00 Test Item Value Reference Range Interpretation Comments Albumin Lvl (test code = Albumin Lvl) 3.3 3.5-5.0 [facility]2014-05-05 12:13:00 Test Item Value Reference Range Interpretation Comments Calcium Lvl (test code = Calcium Lvl) 8.4 8.5-10.5 [facility]2014-05-05 12:13:00 Test Item Value Reference Range Interpretation Comments Chloride Lvl (test code = Chloride Lvl) 105 95-109 [facility] StephenvillePsugkhpOGTVQJSHBP6263-76-29 12:13:00 Test Item Value Reference Range Interpretation Comments Basophils # (test code 0.0 See_Comment [Aut omated message] The = Basophils #) system which generated this result tra nsmitted reference range : <=0.2. The reference r jamaica was not used to int erpret this result as normal/abnormal . [facility] StephenvilleDrzijtqPGPFDNBROI7106-18-76 12:13:00 Test Item Value Reference Range Interpretation Comments Segs (test code = Segs) 63.5 45.0-75.0 [facility] StephenvilleYenumgmFLTKTIGRBI8381-04-32 12:13:00 Test Item Value Reference Range Interpretation Comments Monocytes # (test code 0.3 See_Comment [Aut omated message] The = Monocytes #) system which generated this result tra nsmitted reference range : <=0.8. The reference r jamaica was not used to int erpret this result as normal/abnormal . [facility] StephenvilleNssrtsbBTFOSELVBF3902-50-99 12:13:00 Test Item Value Reference Range Interpretation Comments Basophils (test code = 0.2 See_Comment [Aut omated message] The Basophils) system which ge nerated this result tra nsmitted reference range : <=1.0. The reference r jamaica was not used to int erpret this result as normal/abnormal . [facility] StephenvilleQwwqirqSBHSKNLIYK3368-89-47 12:13:00 Test Item Value Reference Range Interpretation Comments Lymphocytes # (test code = Lymphocytes 1.5 1.0-5.5 #) [facility] StephenvilleRgwyyacGOYOQNUOHP9641-18-28 12:13:00 Test Item Value Reference Range Interpretation Comments Segs-Bands # (test code = Segs-Bands #) 3.3 1.5-8.1 [facility] StephenvilleFyndbviGQHJIJUSXC8782-12-49 12:13:00 Test Item Value Reference Range Interpretation Comments Eosinophils # (test code 0.1 See_Comment [A utomated message] The = Eosinophils #) system whic h generated this result tra nsmitted reference range : <=0.5. The reference r jamaica was not used to int erpret this result as normal/abnormal . [facility] StephenvilleYpxngawZAFMPEUTJW0460-59-72 12:13:00 Test Item Value Reference Range Interpretation Comments Lymphocytes (test code = Lymphocytes) 28.9 20.0-40.0 [facility] StephenvilleNbtqdnnUJOKSODIOY5812-83-31 12:13:00 Test Item Value Reference Range Interpretation Comments Monocytes (test code = Monocytes) 6.2 2.0-12.0 [facility] StephenvilleKzqtmxoVTSWIMSTSD1988-85-43 12:13:00 Test Item Value Reference Range Interpretation Comments Eosinophils (test code = 1.2 See_Comment [A utomated message] The Eosinophils) system which ge nerated this result tra nsmitted reference range : <=4.0. The reference r jamaica was not used to int erpret this result as normal/abnormal . [facility]villePiwnbmlMEAHKQXQCR6490-03-24 12:13:00 Test Item Value Reference Range Interpretation Comments MCHC (test code = MCHC) 34.3 32.0-36.0 [facility] StephenvilleMnqisrpWIWUZGDWSL4841-62-22 12:13:00 Test Item Value Reference Range Interpretation Comments RDW (test code = RDW) 16.5 11.5-14.5 [facility] StephenvilleLtmjxuaWDZLPRDMFY7948-37-84 12:13:00 Test Item Value Reference Range Interpretation Comments MCH (test code = MCH) 31.5 pg 27.0-31.0 [facility] StephenvilleEdzywxmYANKGPMKYP3255-76-63 12:13:00 Test Item Value Reference Range Interpretation Comments MCV (test code = MCV) 91.9 81.0-99.0 [facility] StephenvilleNqzjamwWQPCGIJJJQ4287-57-02 12:13:00 Test Item Value Reference Range Interpretation Comments Platelet (test code = Platelet) 177 133-450 [facility] StephenvilleQzzwtniZEJFKRGSPX3854-56-95 12:13:00 Test Item Value Reference Range Interpretation Comments MPV (test code = MPV) 7.9 7.4-10.4 [facility] StephenvilleZowdrxhHCWYNQGKIE5867-42-20 12:13:00 Test Item Value Reference Range Interpretation Comments RBC (test code = RBC) 3.91 4.20-5.40 [facility] StephenvilleZmorxneJIDUSWPDBL3573-66-48 12:13:00 Test Item Value Reference Range Interpretation Comments Hct (test code = Hct) 35.9 36.0-48.0 [facility] StephenvilleYimrkovKPJHEDSBIN2272-87-11 12:13:00 Test Item Value Reference Range Interpretation Comments Hgb (test code = Hgb) 12.3 12.0-16.0 [facility] StephenvilleIxrastuQECYWHKVKD5258-17-66 12:13:00 Test Item Value Reference Range Interpretation Comments WBC (test code = WBC) 5.1 3.7-10.4 [facility]2014-05-05 12:13:00 Test Item Value Reference Range Interpretation Comments Magnesium Lvl (test code = Magnesium 1.8 1.8-2.4 Lvl) [facility]2014-05-05 12:13:00 Test Item Value Reference Range Interpretation Comments Phosphorus (test code = Phosphorus) 2.6 2.5-4.5 [facility]2014-05-05 12:13:00 Test Item Value Reference Range Interpretation Comments Globulin (test code = Globulin) 2.8 2.0-4.0 [facility]2014-05-05 12:13:00 Test Item Value Reference Range Interpretation Comments A/G Ratio (test code = A/G Ratio) 1.2 0.7-1.6 [facility]2014-05-05 12:13:00 Test Item Value Reference Range Interpretation Comments B/C Ratio (test code = B/C Ratio) 10 6-25 [facility]2014-05-05 12:13:00 Test Item Value Reference Range Interpretation Comments AGAP (test code = AGAP) 6.9 10.0-20.0 [facility]2014-05-05 12:13:00 Test Item Value Reference Range Interpretation Comments eGFR (test code = eGFR) 101 [facility]2014-05-05 12:13:00 Test Item Value Reference Range Interpretation Comments Glucose Lvl (test code = Glucose Lvl) 84 70-99 [facility]2014-05-05 12:13:00 Test Item Value Reference Range Interpretation Comments Potassium Lvl (test code = Potassium 3.9 3.5-5.1 Lvl) [facility]2014-05-05 12:13:00 Test Item Value Reference Range Interpretation Comments Sodium Lvl (test code = Sodium Lvl) 141 135-145 [facility]2014-05-05 12:13:00 Test Item Value Reference Range Interpretation Comments Creatinine Lvl (test code = Creatinine 0.7 0.5-1.4 Lvl) [facility]2014-05-05 12:13:00 Test Item Value Reference Range Interpretation Comments BUN (test code = BUN) 7 7-22 [place] 538464-05-05 12:13:00 Test Item Value Reference Range Interpretation Comments Bili Total (test code = Bili Total) 0.3 0.2-1.3 [place] 538464-05-05 12:13:00 Test Item Value Reference Range Interpretation Comments Alk Phos (test code = Alk Phos) 71 39-136 [place] 538464-05-05 12:13:00 Test Item Value Reference Range Interpretation Comments AST (test code = AST) 21 See_Comment [Auto mated message] The system which ge nerated this result transmit ulysses reference range : <=37. The reference range was not used to interpr et this result as sharron l/abnormal. [place] 538464-05-05 12:13:00 Test Item Value Reference Range Interpretation Comments ALT (test code = ALT) 20 See_Comment [Auto mated message] The system which ge nerated this result transmit ulysses reference range : <=65. The reference range was not used to interpr et this result as sharron l/abnormal. [facility]2014-05-05 12:13:00 Test Item Value Reference Range Interpretation Comments Total Protein (test code = Total 6.1 6.4-8.4 Protein) [facility]2014-05-05 12:13:00 Test Item Value Reference Range Interpretation Comments CO2 (test code = CO2) 33 24-32 [place] 538464-05-05 12:13:00 Test Item Value Reference Range Interpretation Comments Albumin Lvl (test code = Albumin Lvl) 3.3 3.5-5.0 [facility]2014-05-05 12:13:00 Test Item Value Reference Range Interpretation Comments Calcium Lvl (test code = Calcium Lvl) 8.4 8.5-10.5 [facility]2014-05-05 12:13:00 Test Item Value Reference Range Interpretation Comments Chloride Lvl (test code = Chloride Lvl) 105 95-109 [facility]villeAftkarhBXVCESDXUG1761-64-95 12:13:00 Test Item Value Reference Range Interpretation Comments Basophils # (test code 0.0 See_Comment [Aut omated message] The = Basophils #) system which generated this result tra nsmitted reference range : <=0.2. The reference r jamaica was not used to int erpret this result as normal/abnormal . [facility]villePbuqxgxGJHYBIUINM4022-94-32 12:13:00 Test Item Value Reference Range Interpretation Comments Segs (test code = Segs) 63.5 45.0-75.0 [facility] StephenvilleDvxkasuGMVPMCMHGK4332-59-47 12:13:00 Test Item Value Reference Range Interpretation Comments Monocytes # (test code 0.3 See_Comment [Aut omated message] The = Monocytes #) system which generated this result tra nsmitted reference range : <=0.8. The reference r jamaica was not used to int erpret this result as normal/abnormal . [facility]villeDglnhbyQJZGFWHNRI9185-33-15 12:13:00 Test Item Value Reference Range Interpretation Comments Basophils (test code = 0.2 See_Comment [Aut omated message] The Basophils) system which ge nerated this result tra nsmitted reference range : <=1.0. The reference r jamaica was not used to int erpret this result as normal/abnormal . [facility] StephenvilleIqamsozASRHKOGEYE8491-87-07 12:13:00 Test Item Value Reference Range Interpretation Comments Lymphocytes # (test code = Lymphocytes 1.5 1.0-5.5 #) [facility]villeHkygqqoIBHXDEBCNO0206-92-98 12:13:00 Test Item Value Reference Range Interpretation Comments Segs-Bands # (test code = Segs-Bands #) 3.3 1.5-8.1 [facility] StephenvilleTxfodysZJVKUVFWLU6652-00-26 12:13:00 Test Item Value Reference Range Interpretation Comments Eosinophils # (test code 0.1 See_Comment [A utomated message] The = Eosinophils #) system whic h generated this result tra nsmitted reference range : <=0.5. The reference r jamaica was not used to int erpret this result as normal/abnormal . [facility]villeGgmslaiCVXDHHUQKP5417-03-77 12:13:00 Test Item Value Reference Range Interpretation Comments Lymphocytes (test code = Lymphocytes) 28.9 20.0-40.0 [facility]villePhulhseFCRVPTZNXH1561-50-21 12:13:00 Test Item Value Reference Range Interpretation Comments Monocytes (test code = Monocytes) 6.2 2.0-12.0 [facility] StephenvilleThmkywtSAOFXXARUI5252-63-24 12:13:00 Test Item Value Reference Range Interpretation Comments Eosinophils (test code = 1.2 See_Comment [A utomated message] The Eosinophils) system which ge nerated this result tra nsmitted reference range : <=4.0. The reference r jamaica was not used to int erpret this result as normal/abnormal . [facility] StephenvilleUrapgirTCCRHQSHDM0855-26-79 12:13:00 Test Item Value Reference Range Interpretation Comments MCHC (test code = MCHC) 34.3 32.0-36.0 [facility] StephenvilleMcqarorTUDQMTFCBK8538-92-30 12:13:00 Test Item Value Reference Range Interpretation Comments RDW (test code = RDW) 16.5 11.5-14.5 [facility] StephenvilleZhxzkxvUWAHMRFJFC3840-42-24 12:13:00 Test Item Value Reference Range Interpretation Comments MCH (test code = MCH) 31.5 pg 27.0-31.0 [facility] StephenvilleQwwmvobDTDXGAUZXC0854-41-84 12:13:00 Test Item Value Reference Range Interpretation Comments MCV (test code = MCV) 91.9 81.0-99.0 [facility] StephenvillePtbjsmlPJKHGIVSVL7224-59-68 12:13:00 Test Item Value Reference Range Interpretation Comments Platelet (test code = Platelet) 177 133-450 [facility] StephenvilleCgebjqjWQNIFTFIMS2966-43-89 12:13:00 Test Item Value Reference Range Interpretation Comments MPV (test code = MPV) 7.9 7.4-10.4 [facility] StephenvilleMktpkikMQKIGPRCRM0612-95-35 12:13:00 Test Item Value Reference Range Interpretation Comments RBC (test code = RBC) 3.91 4.20-5.40 [facility] StephenvilleVptqykkPENIVXHTSO2312-72-15 12:13:00 Test Item Value Reference Range Interpretation Comments Hct (test code = Hct) 35.9 36.0-48.0 [facility] StephenvilleSrcgirgOPYJOHYFOW4920-62-85 12:13:00 Test Item Value Reference Range Interpretation Comments Hgb (test code = Hgb) 12.3 12.0-16.0 [facility] StephenvilleDxqihlhNXUCCSPZDS5524-59-58 12:13:00 Test Item Value Reference Range Interpretation Comments WBC (test code = WBC) 5.1 3.7-10.4 [facility]2014-05-05 12:13:00 Test Item Value Reference Range Interpretation Comments Magnesium Lvl (test code = Magnesium 1.8 1.8-2.4 Lvl) [facility]2014-05-05 12:13:00 Test Item Value Reference Range Interpretation Comments Phosphorus (test code = Phosphorus) 2.6 2.5-4.5 [facility]2014-05-05 12:13:00 Test Item Value Reference Range Interpretation Comments Globulin (test code = Globulin) 2.8 2.0-4.0 [facility]2014-05-05 12:13:00 Test Item Value Reference Range Interpretation Comments A/G Ratio (test code = A/G Ratio) 1.2 0.7-1.6 [facility]2014-05-05 12:13:00 Test Item Value Reference Range Interpretation Comments B/C Ratio (test code = B/C Ratio) 10 6-25 [facility]2014-05-05 12:13:00 Test Item Value Reference Range Interpretation Comments AGAP (test code = AGAP) 6.9 10.0-20.0 [facility]2014-05-05 12:13:00 Test Item Value Reference Range Interpretation Comments eGFR (test code = eGFR) 101 [facility]2014-05-05 12:13:00 Test Item Value Reference Range Interpretation Comments Glucose Lvl (test code = Glucose Lvl) 84 70-99 [facility]2014-05-05 12:13:00 Test Item Value Reference Range Interpretation Comments Potassium Lvl (test code = Potassium 3.9 3.5-5.1 Lvl) [facility]2014-05-05 12:13:00 Test Item Value Reference Range Interpretation Comments Sodium Lvl (test code = Sodium Lvl) 141 135-145 [place] 538464-05-05 12:13:00 Test Item Value Reference Range Interpretation Comments Creatinine Lvl (test code = Creatinine 0.7 0.5-1.4 Lvl) [facility]2014-05-05 12:13:00 Test Item Value Reference Range Interpretation Comments BUN (test code = BUN) 7 7-22 [place] 538464-05-05 12:13:00 Test Item Value Reference Range Interpretation Comments Bili Total (test code = Bili Total) 0.3 0.2-1.3 [facility]2014-05-05 12:13:00 Test Item Value Reference Range Interpretation Comments Alk Phos (test code = Alk Phos) 71 39-136 [place] 538464-05-05 12:13:00 Test Item Value Reference Range Interpretation Comments AST (test code = AST) 21 See_Comment [Auto mated message] The system which ge nerated this result transmit ulysses reference range : <=37. The reference range was not used to interpr et this result as sharron l/abnormal. [place] 538464-05-05 12:13:00 Test Item Value Reference Range Interpretation Comments ALT (test code = ALT) 20 See_Comment [Auto mated message] The system which ge nerated this result transmit ulysses reference range : <=65. The reference range was not used to interpr et this result as sharron l/abnormal. [place] 538464-05-05 12:13:00 Test Item Value Reference Range Interpretation Comments Total Protein (test code = Total 6.1 6.4-8.4 Protein) [facility]2014-05-05 12:13:00 Test Item Value Reference Range Interpretation Comments CO2 (test code = CO2) 33 24-32 [place] 538464-05-05 12:13:00 Test Item Value Reference Range Interpretation Comments Albumin Lvl (test code = Albumin Lvl) 3.3 3.5-5.0 [facility]2014-05-05 12:13:00 Test Item Value Reference Range Interpretation Comments Calcium Lvl (test code = Calcium Lvl) 8.4 8.5-10.5 [place] 538464-05-05 12:13:00 Test Item Value Reference Range Interpretation Comments Chloride Lvl (test code = Chloride Lvl) 105 95-109 [facility]villeGftalzyZSPQQBPMHK7510-15-20 12:13:00 Test Item Value Reference Range Interpretation Comments Basophils # (test code 0.0 See_Comment [Aut omated message] The = Basophils #) system which generated this result tra nsmitted reference range : <=0.2. The reference r jamaica was not used to int erpret this result as normal/abnormal . [facility] StephenvilleBhcamtiOYXRJTORUI5899-40-90 12:13:00 Test Item Value Reference Range Interpretation Comments Segs (test code = Segs) 63.5 45.0-75.0 [facility] StephenvilleYuekykqEWLFOBAXUG6037-88-43 12:13:00 Test Item Value Reference Range Interpretation Comments Monocytes # (test code 0.3 See_Comment [Aut omated message] The = Monocytes #) system which generated this result tra nsmitted reference range : <=0.8. The reference r jamaica was not used to int erpret this result as normal/abnormal . [facility] StephenvilleRcspncbFMBUOZVYHA0982-28-75 12:13:00 Test Item Value Reference Range Interpretation Comments Basophils (test code = 0.2 See_Comment [Aut omated message] The Basophils) system which ge nerated this result tra nsmitted reference range : <=1.0. The reference r jamaica was not used to int erpret this result as normal/abnormal . [facility]villeOhwjlyqMUXLWTPZPV9734-41-47 12:13:00 Test Item Value Reference Range Interpretation Comments Lymphocytes # (test code = Lymphocytes 1.5 1.0-5.5 #) [facility] StephenvilleRrwovgfCQCAZPKCSD7011-38-17 12:13:00 Test Item Value Reference Range Interpretation Comments Segs-Bands # (test code = Segs-Bands #) 3.3 1.5-8.1 [facility] StephenvilleOycnrcjFOITRNPDIU2079-34-54 12:13:00 Test Item Value Reference Range Interpretation Comments Eosinophils # (test code 0.1 See_Comment [A utomated message] The = Eosinophils #) system whic h generated this result tra nsmitted reference range : <=0.5. The reference r jamaica was not used to int erpret this result as normal/abnormal . [facility] StephenvilleNycuyynMEBMRHHGTK5991-14-69 12:13:00 Test Item Value Reference Range Interpretation Comments Lymphocytes (test code = Lymphocytes) 28.9 20.0-40.0 [facility]villeYdpgpsuSEYKHLRTTF7097-25-96 12:13:00 Test Item Value Reference Range Interpretation Comments Monocytes (test code = Monocytes) 6.2 2.0-12.0 [facility] StephenvilleLkexqwdBCOSMSEJVQ7597-74-35 12:13:00 Test Item Value Reference Range Interpretation Comments Eosinophils (test code = 1.2 See_Comment [A utomated message] The Eosinophils) system which ge nerated this result tra nsmitted reference range : <=4.0. The reference r jamaica was not used to int erpret this result as normal/abnormal . [facility] StephenvilleSnokvncRQINOROVOQ1283-08-75 12:13:00 Test Item Value Reference Range Interpretation Comments MCHC (test code = MCHC) 34.3 32.0-36.0 [facility] StephenvilleZoxhibzWAEJUPQVDE7774-73-59 12:13:00 Test Item Value Reference Range Interpretation Comments RDW (test code = RDW) 16.5 11.5-14.5 [facility] StephenvilleKxnrzddLJVIRBPIZE0056-32-65 12:13:00 Test Item Value Reference Range Interpretation Comments MCH (test code = MCH) 31.5 pg 27.0-31.0 [facility] StephenvilleTkmvphgPCSYWZMICG9334-49-60 12:13:00 Test Item Value Reference Range Interpretation Comments MCV (test code = MCV) 91.9 81.0-99.0 [facility] StephenvilleSvffyzgXGLOSELEDC7258-00-74 12:13:00 Test Item Value Reference Range Interpretation Comments Platelet (test code = Platelet) 177 133-450 [facility] StephenvilleVluwlsdJPNCUDTTYT5198-60-63 12:13:00 Test Item Value Reference Range Interpretation Comments MPV (test code = MPV) 7.9 7.4-10.4 [facility] StephenvilleFrixemuWPCMBJDVMW2095-49-64 12:13:00 Test Item Value Reference Range Interpretation Comments RBC (test code = RBC) 3.91 4.20-5.40 [facility] StephenvilleOspymdsWFYZLQSEUP4829-89-77 12:13:00 Test Item Value Reference Range Interpretation Comments Hct (test code = Hct) 35.9 36.0-48.0 [facility] StephenvilleIylgyctEQYQBGCUQD8017-64-75 12:13:00 Test Item Value Reference Range Interpretation Comments Hgb (test code = Hgb) 12.3 12.0-16.0 [facility] StephenvilleBhtdytkUOIZYUGRNS9747-49-96 12:13:00 Test Item Value Reference Range Interpretation Comments WBC (test code = WBC) 5.1 3.7-10.4 [facility]2014-05-05 12:13:00 Test Item Value Reference Range Interpretation Comments Magnesium Lvl (test code = Magnesium 1.8 1.8-2.4 Lvl) [facility]2014-05-05 12:13:00 Test Item Value Reference Range Interpretation Comments Phosphorus (test code = Phosphorus) 2.6 2.5-4.5 [facility]2014-05-05 12:13:00 Test Item Value Reference Range Interpretation Comments Globulin (test code = Globulin) 2.8 2.0-4.0 [facility]2014-05-05 12:13:00 Test Item Value Reference Range Interpretation Comments A/G Ratio (test code = A/G Ratio) 1.2 0.7-1.6 [facility]2014-05-05 12:13:00 Test Item Value Reference Range Interpretation Comments B/C Ratio (test code = B/C Ratio) 10 6-25 [facility]2014-05-05 12:13:00 Test Item Value Reference Range Interpretation Comments AGAP (test code = AGAP) 6.9 10.0-20.0 [facility]2014-05-05 12:13:00 Test Item Value Reference Range Interpretation Comments eGFR (test code = eGFR) 101 [facility]2014-05-05 12:13:00 Test Item Value Reference Range Interpretation Comments Glucose Lvl (test code = Glucose Lvl) 84 70-99 [facility]2014-05-05 12:13:00 Test Item Value Reference Range Interpretation Comments Potassium Lvl (test code = Potassium 3.9 3.5-5.1 Lvl) [facility]2014-05-05 12:13:00 Test Item Value Reference Range Interpretation Comments Sodium Lvl (test code = Sodium Lvl) 141 135-145 [facility]2014-05-05 12:13:00 Test Item Value Reference Range Interpretation Comments Creatinine Lvl (test code = Creatinine 0.7 0.5-1.4 Lvl) [facility]2014-05-05 12:13:00 Test Item Value Reference Range Interpretation Comments BUN (test code = BUN) 7 7-22 [facility]2014-05-05 12:13:00 Test Item Value Reference Range Interpretation Comments Bili Total (test code = Bili Total) 0.3 0.2-1.3 [facility]2014-05-05 12:13:00 Test Item Value Reference Range Interpretation Comments Alk Phos (test code = Alk Phos) 71 39-136 [facility]2014-05-05 12:13:00 Test Item Value Reference Range Interpretation Comments AST (test code = AST) 21 See_Comment [Auto mated message] The system which ge nerated this result transmit ulysses reference range : <=37. The reference range was not used to interpr et this result as sharron l/abnormal. [facility]2014-05-05 12:13:00 Test Item Value Reference Range Interpretation Comments ALT (test code = ALT) 20 See_Comment [Auto mated message] The system which ge nerated this result transmit ulysses reference range : <=65. The reference range was not used to interpr et this result as sharron l/abnormal. [facility]2014-05-05 12:13:00 Test Item Value Reference Range Interpretation Comments Total Protein (test code = Total 6.1 6.4-8.4 Protein) [facility]2014-05-05 12:13:00 Test Item Value Reference Range Interpretation Comments CO2 (test code = CO2) 33 24-32 [facility]2014-05-05 12:13:00 Test Item Value Reference Range Interpretation Comments Albumin Lvl (test code = Albumin Lvl) 3.3 3.5-5.0 [facility]2014-05-05 12:13:00 Test Item Value Reference Range Interpretation Comments Calcium Lvl (test code = Calcium Lvl) 8.4 8.5-10.5 [facility]2014-05-05 12:13:00 Test Item Value Reference Range Interpretation Comments Chloride Lvl (test code = Chloride Lvl) 105 95-109 [facility] StephenvillePeusptiQQPWFILCKW7158-73-73 12:13:00 Test Item Value Reference Range Interpretation Comments Basophils # (test code 0.0 See_Comment [Aut omated message] The = Basophils #) system which generated this result tra nsmitted reference range : <=0.2. The reference r jamaica was not used to int erpret this result as normal/abnormal . [facility] StephenvilleNuiryozGZGHZMFWZZ1192-95-21 12:13:00 Test Item Value Reference Range Interpretation Comments Segs (test code = Segs) 63.5 45.0-75.0 [facility] StephenvilleWminhayWYCIZTEAXL3251-54-53 12:13:00 Test Item Value Reference Range Interpretation Comments Monocytes # (test code 0.3 See_Comment [Aut omated message] The = Monocytes #) system which generated this result tra nsmitted reference range : <=0.8. The reference r jamaica was not used to int erpret this result as normal/abnormal . [facility] StephenvilleZrfmgfzDWOBAQSHKV0556-90-90 12:13:00 Test Item Value Reference Range Interpretation Comments Basophils (test code = 0.2 See_Comment [Aut omated message] The Basophils) system which ge nerated this result tra nsmitted reference range : <=1.0. The reference r jamaica was not used to int erpret this result as normal/abnormal . [facility] StephenvilleZowimjnWJTZILRMEP9499-59-99 12:13:00 Test Item Value Reference Range Interpretation Comments Lymphocytes # (test code = Lymphocytes 1.5 1.0-5.5 #) [facility] StephenvilleWcvaypjFFZAGAINPW8554-90-03 12:13:00 Test Item Value Reference Range Interpretation Comments Segs-Bands # (test code = Segs-Bands #) 3.3 1.5-8.1 [facility]villeApnsdpcSYETQXGZGG1821-76-44 12:13:00 Test Item Value Reference Range Interpretation Comments Eosinophils # (test code 0.1 See_Comment [A utomated message] The = Eosinophils #) system whic h generated this result tra nsmitted reference range : <=0.5. The reference r jamaica was not used to int erpret this result as normal/abnormal . [facility] StephenvilleCfurcfwHRKURTBXIR7959-08-86 12:13:00 Test Item Value Reference Range Interpretation Comments Lymphocytes (test code = Lymphocytes) 28.9 20.0-40.0 [facility] StephenvilleXghfpjuYSOGJQWSMK6233-80-91 12:13:00 Test Item Value Reference Range Interpretation Comments Monocytes (test code = Monocytes) 6.2 2.0-12.0 [facility] StephenvilleZxtzwrbMPPJAQOMYW1954-07-25 12:13:00 Test Item Value Reference Range Interpretation Comments Eosinophils (test code = 1.2 See_Comment [A utomated message] The Eosinophils) system which ge nerated this result tra nsmitted reference range : <=4.0. The reference r jamaica was not used to int erpret this result as normal/abnormal . [facility] StephenvilleVdhqbalKHSJYEGZIU6362-24-95 12:13:00 Test Item Value Reference Range Interpretation Comments MCHC (test code = MCHC) 34.3 32.0-36.0 [facility] StephenvilleUuxliszMDXEITAFUY0110-87-23 12:13:00 Test Item Value Reference Range Interpretation Comments RDW (test code = RDW) 16.5 11.5-14.5 [facility] StephenvilleMsqxdmjJQORLUOZJZ0052-95-71 12:13:00 Test Item Value Reference Range Interpretation Comments MCH (test code = MCH) 31.5 pg 27.0-31.0 [facility] StephenvilleWidcfdqKNCICLAIBO2774-58-25 12:13:00 Test Item Value Reference Range Interpretation Comments MCV (test code = MCV) 91.9 81.0-99.0 [facility] StephenvilleKuugcteXGYYMXOADM4721-87-10 12:13:00 Test Item Value Reference Range Interpretation Comments Platelet (test code = Platelet) 177 133-450 [facility] StephenvilleBahcqnuKURMUSYJEL2906-38-33 12:13:00 Test Item Value Reference Range Interpretation Comments MPV (test code = MPV) 7.9 7.4-10.4 [facility] StephenvilleJxpmnuaCWMFOCVLBA9904-97-21 12:13:00 Test Item Value Reference Range Interpretation Comments RBC (test code = RBC) 3.91 4.20-5.40 [facility] StephenvilleKjenameSEVHGDKTKZ6703-10-44 12:13:00 Test Item Value Reference Range Interpretation Comments Hct (test code = Hct) 35.9 36.0-48.0 [facility] StephenvilleGqtkhafPVHOPHUWPO0116-38-00 12:13:00 Test Item Value Reference Range Interpretation Comments Hgb (test code = Hgb) 12.3 12.0-16.0 [facility]QbclkgqBLUIPGKCFL4483-45-09 12:13:00 Test Item Value Reference Range Interpretation Comments WBC (test code = WBC) 5.1 3.7-10.4 [facility]2014-05-05 12:13:00 Test Item Value Reference Range Interpretation Comments Magnesium Lvl (test code = Magnesium 1.8 1.8-2.4 Lvl) [facility]2014-05-05 12:13:00 Test Item Value Reference Range Interpretation Comments Phosphorus (test code = Phosphorus) 2.6 2.5-4.5 [facility]2014-05-05 12:13:00 Test Item Value Reference Range Interpretation Comments Globulin (test code = Globulin) 2.8 2.0-4.0 [facility]2014-05-05 12:13:00 Test Item Value Reference Range Interpretation Comments A/G Ratio (test code = A/G Ratio) 1.2 0.7-1.6 [facility]2014-05-05 12:13:00 Test Item Value Reference Range Interpretation Comments B/C Ratio (test code = B/C Ratio) 10 6-25 [facility]2014-05-05 12:13:00 Test Item Value Reference Range Interpretation Comments AGAP (test code = AGAP) 6.9 10.0-20.0 [facility]2014-05-05 12:13:00 Test Item Value Reference Range Interpretation Comments eGFR (test code = eGFR) 101 [facility]2014-05-05 12:13:00 Test Item Value Reference Range Interpretation Comments Glucose Lvl (test code = Glucose Lvl) 84 70-99 [facility]2014-05-05 12:13:00 Test Item Value Reference Range Interpretation Comments Potassium Lvl (test code = Potassium 3.9 3.5-5.1 Lvl) [facility]2014-05-05 12:13:00 Test Item Value Reference Range Interpretation Comments Sodium Lvl (test code = Sodium Lvl) 141 135-145 [facility]2014-05-05 12:13:00 Test Item Value Reference Range Interpretation Comments Creatinine Lvl (test code = Creatinine 0.7 0.5-1.4 Lvl) [facility]2014-05-05 12:13:00 Test Item Value Reference Range Interpretation Comments BUN (test code = BUN) 7 7-22 [facility]2014-05-05 12:13:00 Test Item Value Reference Range Interpretation Comments Bili Total (test code = Bili Total) 0.3 0.2-1.3 [place]38464-05-05 12:13:00 Test Item Value Reference Range Interpretation Comments Alk Phos (test code = Alk Phos) 71 39-136 [facility]2014-05-05 12:13:00 Test Item Value Reference Range Interpretation Comments AST (test code = AST) 21 See_Comment [Auto mated message] The system which ge nerated this result transmit ulysses reference range : <=37. The reference range was not used to interpr et this result as sharron l/abnormal. [place] 538464-05-05 12:13:00 Test Item Value Reference Range Interpretation Comments ALT (test code = ALT) 20 See_Comment [Auto mated message] The system which ge nerated this result transmit ulysses reference range : <=65. The reference range was not used to interpr et this result as sharron l/abnormal. [facility]2014-05-05 12:13:00 Test Item Value Reference Range Interpretation Comments Total Protein (test code = Total 6.1 6.4-8.4 Protein) [facility]2014-05-05 12:13:00 Test Item Value Reference Range Interpretation Comments CO2 (test code = CO2) 33 24-32 [place] 538464-05-05 12:13:00 Test Item Value Reference Range Interpretation Comments Albumin Lvl (test code = Albumin Lvl) 3.3 3.5-5.0 [facility]2014-05-05 12:13:00 Test Item Value Reference Range Interpretation Comments Calcium Lvl (test code = Calcium Lvl) 8.4 8.5-10.5 [facility]2014-05-05 12:13:00 Test Item Value Reference Range Interpretation Comments Chloride Lvl (test code = Chloride Lvl) 105 95-109 [facility]villeZdpjpnrTPHBGLRPSA2568-54-18 12:13:00 Test Item Value Reference Range Interpretation Comments Basophils # (test code 0.0 See_Comment [Aut omated message] The = Basophils #) system which generated this result tra nsmitted reference range : <=0.2. The reference r jamaica was not used to int erpret this result as normal/abnormal . [facility]villeUnppchoDPHCKJFNDF6918-47-74 12:13:00 Test Item Value Reference Range Interpretation Comments Segs (test code = Segs) 63.5 45.0-75.0 [facility]villeVglktfrRGMQTIGEVW0495-76-05 12:13:00 Test Item Value Reference Range Interpretation Comments Monocytes # (test code 0.3 See_Comment [Aut omated message] The = Monocytes #) system which generated this result tra nsmitted reference range : <=0.8. The reference r jamaica was not used to int erpret this result as normal/abnormal . [facility]villePybzxdyZZXCBJJASD3199-36-90 12:13:00 Test Item Value Reference Range Interpretation Comments Basophils (test code = 0.2 See_Comment [Aut omated message] The Basophils) system which ge nerated this result tra nsmitted reference range : <=1.0. The reference r jamaica was not used to int erpret this result as normal/abnormal . [facility]villeZmyrbjnTGPLBUHXDD9023-43-89 12:13:00 Test Item Value Reference Range Interpretation Comments Lymphocytes # (test code = Lymphocytes 1.5 1.0-5.5 #) [facility]villeIfvgxyxYRHSLADZJW6080-53-12 12:13:00 Test Item Value Reference Range Interpretation Comments Segs-Bands # (test code = Segs-Bands #) 3.3 1.5-8.1 [facility]villeBjtstirSIJBAVNHEL8871-31-26 12:13:00 Test Item Value Reference Range Interpretation Comments Eosinophils # (test code 0.1 See_Comment [A utomated message] The = Eosinophils #) system whic h generated this result tra nsmitted reference range : <=0.5. The reference r jamaica was not used to int erpret this result as normal/abnormal . [facility]villeGvqsmfyZBAWSELVNT4611-90-65 12:13:00 Test Item Value Reference Range Interpretation Comments Lymphocytes (test code = Lymphocytes) 28.9 20.0-40.0 [facility]villeKaapfdmBXCXXBLDLT8662-62-95 12:13:00 Test Item Value Reference Range Interpretation Comments Monocytes (test code = Monocytes) 6.2 2.0-12.0 [facility]villeRnjhwunIVEREZQQZO8313-38-79 12:13:00 Test Item Value Reference Range Interpretation Comments Eosinophils (test code = 1.2 See_Comment [A utomated message] The Eosinophils) system which ge nerated this result tra nsmitted reference range : <=4.0. The reference r jamaica was not used to int erpret this result as normal/abnormal . [facility]villeFpminvrWCKMSVAXRT8403-65-69 12:13:00 Test Item Value Reference Range Interpretation Comments MCHC (test code = MCHC) 34.3 32.0-36.0 [facility]villeTykfjrpLODACLEVGR9677-92-57 12:13:00 Test Item Value Reference Range Interpretation Comments RDW (test code = RDW) 16.5 11.5-14.5 [facility]villeHmdannaJPFNJRVJDX7392-95-20 12:13:00 Test Item Value Reference Range Interpretation Comments MCH (test code = MCH) 31.5 pg 27.0-31.0 [facility]villeWwdhbewXUMIEINIHH4028-03-18 12:13:00 Test Item Value Reference Range Interpretation Comments MCV (test code = MCV) 91.9 81.0-99.0 [facility]villeKxcgjvxIBUUIWTLOF3033-10-98 12:13:00 Test Item Value Reference Range Interpretation Comments Platelet (test code = Platelet) 177 133-450 [facility]villeTkdyhxpDGWAYJJYVT5999-41-49 12:13:00 Test Item Value Reference Range Interpretation Comments MPV (test code = MPV) 7.9 7.4-10.4 [facility]villeMlqempdBWALIZRKSH9975-27-03 12:13:00 Test Item Value Reference Range Interpretation Comments RBC (test code = RBC) 3.91 4.20-5.40 [facility]villeHdqczxkLPDRTDNRND2882-42-30 12:13:00 Test Item Value Reference Range Interpretation Comments Hct (test code = Hct) 35.9 36.0-48.0 [facility]villeHntdfgxWTNJVFOPOV4275-92-09 12:13:00 Test Item Value Reference Range Interpretation Comments Hgb (test code = Hgb) 12.3 12.0-16.0 [facility]villeDttyfmjITGCMAYSXA7912-58-52 12:13:00 Test Item Value Reference Range Interpretation Comments WBC (test code = WBC) 5.1 3.7-10.4 [facility]2014-05-05 12:13:00 Test Item Value Reference Range Interpretation Comments Magnesium Lvl (test code = Magnesium 1.8 1.8-2.4 Lvl) [facility]2014-05-05 12:13:00 Test Item Value Reference Range Interpretation Comments Phosphorus (test code = Phosphorus) 2.6 2.5-4.5 [facility]2014-05-05 12:13:00 Test Item Value Reference Range Interpretation Comments Globulin (test code = Globulin) 2.8 2.0-4.0 [facility]2014-05-05 12:13:00 Test Item Value Reference Range Interpretation Comments A/G Ratio (test code = A/G Ratio) 1.2 0.7-1.6 [facility]2014-05-05 12:13:00 Test Item Value Reference Range Interpretation Comments B/C Ratio (test code = B/C Ratio) 10 6-25 [facility]2014-05-05 12:13:00 Test Item Value Reference Range Interpretation Comments AGAP (test code = AGAP) 6.9 10.0-20.0 [facility]2014-05-05 12:13:00 Test Item Value Reference Range Interpretation Comments eGFR (test code = eGFR) 101 [facility]2014-05-05 12:13:00 Test Item Value Reference Range Interpretation Comments Glucose Lvl (test code = Glucose Lvl) 84 70-99 [facility]2014-05-05 12:13:00 Test Item Value Reference Range Interpretation Comments Potassium Lvl (test code = Potassium 3.9 3.5-5.1 Lvl) [facility]2014-05-05 12:13:00 Test Item Value Reference Range Interpretation Comments Sodium Lvl (test code = Sodium Lvl) 141 135-145 [facility]2014-05-05 12:13:00 Test Item Value Reference Range Interpretation Comments Creatinine Lvl (test code = Creatinine 0.7 0.5-1.4 Lvl) [facility]2014-05-05 12:13:00 Test Item Value Reference Range Interpretation Comments BUN (test code = BUN) 7 7-22 [facility]2014-05-05 12:13:00 Test Item Value Reference Range Interpretation Comments Bili Total (test code = Bili Total) 0.3 0.2-1.3 [facility]2014-05-05 12:13:00 Test Item Value Reference Range Interpretation Comments Alk Phos (test code = Alk Phos) 71 39-136 [facility]2014-05-05 12:13:00 Test Item Value Reference Range Interpretation Comments AST (test code = AST) 21 See_Comment [Auto mated message] The system which ge nerated this result transmit ulysses reference range : <=37. The reference range was not used to interpr et this result as sharron l/abnormal. [place] 538464-05-05 12:13:00 Test Item Value Reference Range Interpretation Comments ALT (test code = ALT) 20 See_Comment [Auto mated message] The system which ge nerated this result transmit ulysses reference range : <=65. The reference range was not used to interpr et this result as sharron l/abnormal. [facility]2014-05-05 12:13:00 Test Item Value Reference Range Interpretation Comments Total Protein (test code = Total 6.1 6.4-8.4 Protein) [place] 538464-05-05 12:13:00 Test Item Value Reference Range Interpretation Comments CO2 (test code = CO2) 33 24-32 [place] 538464-05-05 12:13:00 Test Item Value Reference Range Interpretation Comments Albumin Lvl (test code = Albumin Lvl) 3.3 3.5-5.0 [facility]2014-05-05 12:13:00 Test Item Value Reference Range Interpretation Comments Calcium Lvl (test code = Calcium Lvl) 8.4 8.5-10.5 [facility]2014-05-05 12:13:00 Test Item Value Reference Range Interpretation Comments Chloride Lvl (test code = Chloride Lvl) 105 95-109 [facility]villeMmbagzwYXREJZWROS1090-14-94 12:13:00 Test Item Value Reference Range Interpretation Comments Basophils # (test code 0.0 See_Comment [Aut omated message] The = Basophils #) system which generated this result tra nsmitted reference range : <=0.2. The reference r jamaica was not used to int erpret this result as normal/abnormal . [facility]villeNjnlkgnVJHEHFBULR4604-21-85 12:13:00 Test Item Value Reference Range Interpretation Comments Segs (test code = Segs) 63.5 45.0-75.0 [facility]villeApazrtcTYCVVLXETH7809-52-59 12:13:00 Test Item Value Reference Range Interpretation Comments Monocytes # (test code 0.3 See_Comment [Aut omated message] The = Monocytes #) system which generated this result tra nsmitted reference range : <=0.8. The reference r jamaica was not used to int erpret this result as normal/abnormal . [facility]villeRbcogqhKALEROZYRV3975-92-08 12:13:00 Test Item Value Reference Range Interpretation Comments Basophils (test code = 0.2 See_Comment [Aut omated message] The Basophils) system which ge nerated this result tra nsmitted reference range : <=1.0. The reference r jamaica was not used to int erpret this result as normal/abnormal . [facility]villeGfzmiovPEEHIJRWUU7615-32-94 12:13:00 Test Item Value Reference Range Interpretation Comments Lymphocytes # (test code = Lymphocytes 1.5 1.0-5.5 #) [facility]villeHylwecpHADXUXKKFJ2789-95-39 12:13:00 Test Item Value Reference Range Interpretation Comments Segs-Bands # (test code = Segs-Bands #) 3.3 1.5-8.1 [facility]villeErmvsozMCBHEJEMHM7197-33-88 12:13:00 Test Item Value Reference Range Interpretation Comments Eosinophils # (test code 0.1 See_Comment [A utomated message] The = Eosinophils #) system whic h generated this result tra nsmitted reference range : <=0.5. The reference r jamaica was not used to int erpret this result as normal/abnormal . [facility]villeGnksdywWJHCAABVWA2486-91-52 12:13:00 Test Item Value Reference Range Interpretation Comments Lymphocytes (test code = Lymphocytes) 28.9 20.0-40.0 [facility]villeEgrqfxgLMDWAKVPSF3213-45-56 12:13:00 Test Item Value Reference Range Interpretation Comments Monocytes (test code = Monocytes) 6.2 2.0-12.0 [facility]villeDuyfcpzNUWRPGDRVO3529-40-73 12:13:00 Test Item Value Reference Range Interpretation Comments Eosinophils (test code = 1.2 See_Comment [A utomated message] The Eosinophils) system which ge nerated this result tra nsmitted reference range : <=4.0. The reference r jamaica was not used to int erpret this result as normal/abnormal . [facility]villeZfdppytTAWSQHZSDY1709-38-12 12:13:00 Test Item Value Reference Range Interpretation Comments MCHC (test code = MCHC) 34.3 32.0-36.0 [facility]villeVvjvbgcJDZOHEDMQZ9188-83-57 12:13:00 Test Item Value Reference Range Interpretation Comments RDW (test code = RDW) 16.5 11.5-14.5 [facility]villeMbkpfqfSEOFIFMZVK8494-80-86 12:13:00 Test Item Value Reference Range Interpretation Comments MCH (test code = MCH) 31.5 pg 27.0-31.0 [facility]villeUbezxdzSXHXURDAVM9504-22-36 12:13:00 Test Item Value Reference Range Interpretation Comments MCV (test code = MCV) 91.9 81.0-99.0 [facility]villeTgbonvtTKKYEAKXJA3683-17-31 12:13:00 Test Item Value Reference Range Interpretation Comments Platelet (test code = Platelet) 177 133-450 [facility]villeGznhfvtGPPMKHHFHQ9009-98-14 12:13:00 Test Item Value Reference Range Interpretation Comments MPV (test code = MPV) 7.9 7.4-10.4 [facility]villeRmltwrrLOTATZWBKJ5542-10-67 12:13:00 Test Item Value Reference Range Interpretation Comments RBC (test code = RBC) 3.91 4.20-5.40 [facility] StephenvilleZoeneumWSJPPQESYC1215-95-41 12:13:00 Test Item Value Reference Range Interpretation Comments Hct (test code = Hct) 35.9 36.0-48.0 [facility]villeRomrfzzWRKPIMCIDM9034-40-39 12:13:00 Test Item Value Reference Range Interpretation Comments Hgb (test code = Hgb) 12.3 12.0-16.0 [facility]villeDbtriytVGWYOPHEGI9537-83-13 12:13:00 Test Item Value Reference Range Interpretation Comments WBC (test code = WBC) 5.1 3.7-10.4 [facility]2014-05-05 12:13:00 Test Item Value Reference Range Interpretation Comments Magnesium Lvl (test code = Magnesium 1.8 1.8-2.4 Lvl) [facility]2014-05-05 12:13:00 Test Item Value Reference Range Interpretation Comments Phosphorus (test code = Phosphorus) 2.6 2.5-4.5 [facility]2014-05-05 12:13:00 Test Item Value Reference Range Interpretation Comments Globulin (test code = Globulin) 2.8 2.0-4.0 [facility]2014-05-05 12:13:00 Test Item Value Reference Range Interpretation Comments A/G Ratio (test code = A/G Ratio) 1.2 0.7-1.6 [facility]2014-05-05 12:13:00 Test Item Value Reference Range Interpretation Comments B/C Ratio (test code = B/C Ratio) 10 6-25 [place] 538464-05-05 12:13:00 Test Item Value Reference Range Interpretation Comments AGAP (test code = AGAP) 6.9 10.0-20.0 [place] 538464-05-05 12:13:00 Test Item Value Reference Range Interpretation Comments eGFR (test code = eGFR) 101 [place] 538464-05-05 12:13:00 Test Item Value Reference Range Interpretation Comments Glucose Lvl (test code = Glucose Lvl) 84 70-99 [place] 538464-05-05 12:13:00 Test Item Value Reference Range Interpretation Comments Potassium Lvl (test code = Potassium 3.9 3.5-5.1 Lvl) [facility]2014-05-05 12:13:00 Test Item Value Reference Range Interpretation Comments Sodium Lvl (test code = Sodium Lvl) 141 135-145 [place] 538464-05-05 12:13:00 Test Item Value Reference Range Interpretation Comments Creatinine Lvl (test code = Creatinine 0.7 0.5-1.4 Lvl) [facility]2014-05-05 12:13:00 Test Item Value Reference Range Interpretation Comments BUN (test code = BUN) 7 7-22 [place] 538464-05-05 12:13:00 Test Item Value Reference Range Interpretation Comments Bili Total (test code = Bili Total) 0.3 0.2-1.3 [place] 538464-05-05 12:13:00 Test Item Value Reference Range Interpretation Comments Alk Phos (test code = Alk Phos) 71 39-136 [place] 538464-05-05 12:13:00 Test Item Value Reference Range Interpretation Comments AST (test code = AST) 21 See_Comment [Auto mated message] The system which ge nerated this result transmit ulysses reference range : <=37. The reference range was not used to interpr et this result as sharron l/abnormal. [place] 538464-05-05 12:13:00 Test Item Value Reference Range Interpretation Comments ALT (test code = ALT) 20 See_Comment [Auto mated message] The system which ge nerated this result transmit ulysses reference range : <=65. The reference range was not used to interpr et this result as sharron l/abnormal. [place] 538464-05-05 12:13:00 Test Item Value Reference Range Interpretation Comments Total Protein (test code = Total 6.1 6.4-8.4 Protein) [facility]2014-05-05 12:13:00 Test Item Value Reference Range Interpretation Comments CO2 (test code = CO2) 33 24-32 [facility]2014-05-05 12:13:00 Test Item Value Reference Range Interpretation Comments Albumin Lvl (test code = Albumin Lvl) 3.3 3.5-5.0 [facility]2014-05-05 12:13:00 Test Item Value Reference Range Interpretation Comments Calcium Lvl (test code = Calcium Lvl) 8.4 8.5-10.5 [facility]2014-05-05 12:13:00 Test Item Value Reference Range Interpretation Comments Chloride Lvl (test code = Chloride Lvl) 105 95-109 [facility]villeGbmcxrzSHUQBUHKWT9157-84-97 12:13:00 Test Item Value Reference Range Interpretation Comments Basophils # (test code 0.0 See_Comment [Aut omated message] The = Basophils #) system which generated this result tra nsmitted reference range : <=0.2. The reference r jamaica was not used to int erpret this result as normal/abnormal . [facility]villePnpbopeYPUBWDXTMZ7311-77-46 12:13:00 Test Item Value Reference Range Interpretation Comments Segs (test code = Segs) 63.5 45.0-75.0 [facility]villeSzjoyslZXBRUXVMRC7014-45-87 12:13:00 Test Item Value Reference Range Interpretation Comments Monocytes # (test code 0.3 See_Comment [Aut omated message] The = Monocytes #) system which generated this result tra nsmitted reference range : <=0.8. The reference r jamaica was not used to int erpret this result as normal/abnormal . [facility] StephenvilleDpxixumXNUHSJGMGR9864-67-13 12:13:00 Test Item Value Reference Range Interpretation Comments Basophils (test code = 0.2 See_Comment [Aut omated message] The Basophils) system which ge nerated this result tra nsmitted reference range : <=1.0. The reference r jamaica was not used to int erpret this result as normal/abnormal . [facility]villeQjwruptJWWKDBNOOF9757-74-97 12:13:00 Test Item Value Reference Range Interpretation Comments Lymphocytes # (test code = Lymphocytes 1.5 1.0-5.5 #) [facility] StephenvilleBppbmapEXUDDHQQUI0384-47-07 12:13:00 Test Item Value Reference Range Interpretation Comments Segs-Bands # (test code = Segs-Bands #) 3.3 1.5-8.1 [facility] StephenvilleLsywfmfCPZSXSBCIK9350-36-60 12:13:00 Test Item Value Reference Range Interpretation Comments Eosinophils # (test code 0.1 See_Comment [A utomated message] The = Eosinophils #) system whic h generated this result tra nsmitted reference range : <=0.5. The reference r jamaica was not used to int erpret this result as normal/abnormal . [facility]villeJhaqyqmNLKUMMSQTJ8839-92-13 12:13:00 Test Item Value Reference Range Interpretation Comments Lymphocytes (test code = Lymphocytes) 28.9 20.0-40.0 [facility]villeItraqmmDPDBXZXNIJ9795-03-31 12:13:00 Test Item Value Reference Range Interpretation Comments Monocytes (test code = Monocytes) 6.2 2.0-12.0 [facility]villeTydmxpqFHPLHKJMVZ0377-84-17 12:13:00 Test Item Value Reference Range Interpretation Comments Eosinophils (test code = 1.2 See_Comment [A utomated message] The Eosinophils) system which ge nerated this result tra nsmitted reference range : <=4.0. The reference r jamaica was not used to int erpret this result as normal/abnormal . [facility] StephenvilleLajlyxrKOJBFPCQMQ3714-25-19 12:13:00 Test Item Value Reference Range Interpretation Comments MCHC (test code = MCHC) 34.3 32.0-36.0 [facility]villeBndonsgYFACIXZDRX3668-77-98 12:13:00 Test Item Value Reference Range Interpretation Comments RDW (test code = RDW) 16.5 11.5-14.5 [facility]villePydnwlxPGPUPTBDTW9759-43-95 12:13:00 Test Item Value Reference Range Interpretation Comments MCH (test code = MCH) 31.5 pg 27.0-31.0 [facility]villeCwzpnlfKNDNNNQDNI0364-87-93 12:13:00 Test Item Value Reference Range Interpretation Comments MCV (test code = MCV) 91.9 81.0-99.0 [facility] StephenvilleNyttfatPUYVZTYQTC8638-88-30 12:13:00 Test Item Value Reference Range Interpretation Comments Platelet (test code = Platelet) 177 133-450 [facility] StephenvilleOirigovLDDRQBZNJJ4382-30-64 12:13:00 Test Item Value Reference Range Interpretation Comments MPV (test code = MPV) 7.9 7.4-10.4 [facility]villeGdpfwekBXCAZMJFBT4017-62-76 12:13:00 Test Item Value Reference Range Interpretation Comments RBC (test code = RBC) 3.91 4.20-5.40 [facility]villePizeddqSBJZQWPSPR4659-99-94 12:13:00 Test Item Value Reference Range Interpretation Comments Hct (test code = Hct) 35.9 36.0-48.0 [facility]villeRqajufjKZSVXPXKGV1993-65-99 12:13:00 Test Item Value Reference Range Interpretation Comments Hgb (test code = Hgb) 12.3 12.0-16.0 [facility]villeZqueqncHZILZBEUNR0714-62-42 12:13:00 Test Item Value Reference Range Interpretation Comments WBC (test code = WBC) 5.1 3.7-10.4 [facility]2014-05-05 12:13:00 Test Item Value Reference Range Interpretation Comments Magnesium Lvl (test code = Magnesium 1.8 1.8-2.4 Lvl) [facility]2014-05-05 12:13:00 Test Item Value Reference Range Interpretation Comments Phosphorus (test code = Phosphorus) 2.6 2.5-4.5 [facility]2014-05-05 12:13:00 Test Item Value Reference Range Interpretation Comments Globulin (test code = Globulin) 2.8 2.0-4.0 [facility]2014-05-05 12:13:00 Test Item Value Reference Range Interpretation Comments A/G Ratio (test code = A/G Ratio) 1.2 0.7-1.6 [facility]2014-05-05 12:13:00 Test Item Value Reference Range Interpretation Comments B/C Ratio (test code = B/C Ratio) 10 6-25 [place] 538464-05-05 12:13:00 Test Item Value Reference Range Interpretation Comments AGAP (test code = AGAP) 6.9 10.0-20.0 [facility]2014-05-05 12:13:00 Test Item Value Reference Range Interpretation Comments eGFR (test code = eGFR) 101 [facility]2014-05-05 12:13:00 Test Item Value Reference Range Interpretation Comments Glucose Lvl (test code = Glucose Lvl) 84 70-99 [facility]2014-05-05 12:13:00 Test Item Value Reference Range Interpretation Comments Potassium Lvl (test code = Potassium 3.9 3.5-5.1 Lvl) [facility]2014-05-05 12:13:00 Test Item Value Reference Range Interpretation Comments Sodium Lvl (test code = Sodium Lvl) 141 135-145 [facility]2014-05-05 12:13:00 Test Item Value Reference Range Interpretation Comments Creatinine Lvl (test code = Creatinine 0.7 0.5-1.4 Lvl) [facility]2014-05-05 12:13:00 Test Item Value Reference Range Interpretation Comments BUN (test code = BUN) 7 7-22 [place] 538464-05-05 12:13:00 Test Item Value Reference Range Interpretation Comments Bili Total (test code = Bili Total) 0.3 0.2-1.3 [place] 538464-05-05 12:13:00 Test Item Value Reference Range Interpretation Comments Alk Phos (test code = Alk Phos) 71 39-136 [place] 538464-05-05 12:13:00 Test Item Value Reference Range Interpretation Comments AST (test code = AST) 21 See_Comment [Auto mated message] The system which ge nerated this result transmit ulysses reference range : <=37. The reference range was not used to interpr et this result as sharron l/abnormal. [facility]2014-05-05 12:13:00 Test Item Value Reference Range Interpretation Comments ALT (test code = ALT) 20 See_Comment [Auto mated message] The system which ge nerated this result transmit ulysses reference range : <=65. The reference range was not used to interpr et this result as sharron l/abnormal. [facility]2014-05-05 12:13:00 Test Item Value Reference Range Interpretation Comments Total Protein (test code = Total 6.1 6.4-8.4 Protein) [facility]2014-05-05 12:13:00 Test Item Value Reference Range Interpretation Comments CO2 (test code = CO2) 33 24-32 [place] 538464-05-05 12:13:00 Test Item Value Reference Range Interpretation Comments Albumin Lvl (test code = Albumin Lvl) 3.3 3.5-5.0 [facility]2014-05-05 12:13:00 Test Item Value Reference Range Interpretation Comments Calcium Lvl (test code = Calcium Lvl) 8.4 8.5-10.5 [place] 538464-05-05 12:13:00 Test Item Value Reference Range Interpretation Comments Chloride Lvl (test code = Chloride Lvl) 105 95-109 [facility]villePfvboquETTYBYKYMA7637-05-45 12:13:00 Test Item Value Reference Range Interpretation Comments Basophils # (test code 0.0 See_Comment [Aut omated message] The = Basophils #) system which generated this result tra nsmitted reference range : <=0.2. The reference r j[place] was not used to int erpret this result as normal/abnormal . [facility]villeVmndpmiHQKFGBNNJE1359-14-63 12:13:00 Test Item Value Reference Range Interpretation Comments Segs (test code = Segs) 63.5 45.0-75.0 [facility]villeNqepuafJNGREWKGAH6388-29-23 12:13:00 Test Item Value Reference Range Interpretation Comments Monocytes # (test code 0.3 See_Comment [Aut omated message] The = Monocytes #) system which generated this result tra nsmitted reference range : <=0.8. The reference r jamaica was not used to int erpret this result as normal/abnormal . [facility]villeQpasjxtMVMPWSTARP0320-86-65 12:13:00 Test Item Value Reference Range Interpretation Comments Basophils (test code = 0.2 See_Comment [Aut omated message] The Basophils) system which ge nerated this result tra nsmitted reference range : <=1.0. The reference r jamaica was not used to int erpret this result as normal/abnormal . [facility]villeSonfsmvGMAZMQIGPF1313-56-29 12:13:00 Test Item Value Reference Range Interpretation Comments Lymphocytes # (test code = Lymphocytes 1.5 1.0-5.5 #) [facility]villeXzemawfGQQYKHJWFU5487-45-99 12:13:00 Test Item Value Reference Range Interpretation Comments Segs-Bands # (test code = Segs-Bands #) 3.3 1.5-8.1 [facility]villeInpwqzcZZWITJBEOM9415-23-23 12:13:00 Test Item Value Reference Range Interpretation Comments Eosinophils # (test code 0.1 See_Comment [A utomated message] The = Eosinophils #) system whic h generated this result tra nsmitted reference range : <=0.5. The reference r jamaica was not used to int erpret this result as normal/abnormal . [facility]villeKfkjgpiNHNMJXEGJB1612-15-82 12:13:00 Test Item Value Reference Range Interpretation Comments Lymphocytes (test code = Lymphocytes) 28.9 20.0-40.0 [facility]villeOapqgiwEFZBRRJXKQ4418-25-59 12:13:00 Test Item Value Reference Range Interpretation Comments Monocytes (test code = Monocytes) 6.2 2.0-12.0 [facility]villeDxhwdmqSYZTFIMRKV4256-77-19 12:13:00 Test Item Value Reference Range Interpretation Comments Eosinophils (test code = 1.2 See_Comment [A utomated message] The Eosinophils) system which ge nerated this result tra nsmitted reference range : <=4.0. The reference r jamaica was not used to int erpret this result as normal/abnormal . [facility]villeOdiayfsMKEOWEYSQQ0535-69-03 12:13:00 Test Item Value Reference Range Interpretation Comments MCHC (test code = MCHC) 34.3 32.0-36.0 [facility]villeUvtzruaASIZQDOPCV7534-52-28 12:13:00 Test Item Value Reference Range Interpretation Comments RDW (test code = RDW) 16.5 11.5-14.5 [facility]villeHokrotfYUVXBICCOF8974-75-41 12:13:00 Test Item Value Reference Range Interpretation Comments MCH (test code = MCH) 31.5 pg 27.0-31.0 [facility]villeIgxzomqMRTUPDAMVJ9317-74-50 12:13:00 Test Item Value Reference Range Interpretation Comments MCV (test code = MCV) 91.9 81.0-99.0 [facility] StephenvilleAfqykvuBOXEXXNNME7509-84-73 12:13:00 Test Item Value Reference Range Interpretation Comments Platelet (test code = Platelet) 177 133-450 [facility]villeKfazfiwSMPAVNQNXP2602-43-35 12:13:00 Test Item Value Reference Range Interpretation Comments MPV (test code = MPV) 7.9 7.4-10.4 [facility]villeAmltdqeCCCKYFIRWW2604-45-48 12:13:00 Test Item Value Reference Range Interpretation Comments RBC (test code = RBC) 3.91 4.20-5.40 [facility] StephenvilleWfurluoWHNUMPYKYT3086-44-66 12:13:00 Test Item Value Reference Range Interpretation Comments Hct (test code = Hct) 35.9 36.0-48.0 [facility]villeDnzfcvtVBTVCLXDIV0660-73-15 12:13:00 Test Item Value Reference Range Interpretation Comments Hgb (test code = Hgb) 12.3 12.0-16.0 [facility]villeVszprsyYGQOBGSGEG4534-72-35 12:13:00 Test Item Value Reference Range Interpretation Comments WBC (test code = WBC) 5.1 3.7-10.4 [facility]2014-05-05 12:13:00 Test Item Value Reference Range Interpretation Comments Magnesium Lvl (test code = Magnesium 1.8 1.8-2.4 Lvl) [facility]2014-05-05 12:13:00 Test Item Value Reference Range Interpretation Comments Phosphorus (test code = Phosphorus) 2.6 2.5-4.5 [facility]2014-05-05 12:13:00 Test Item Value Reference Range Interpretation Comments Globulin (test code = Globulin) 2.8 2.0-4.0 [facility]2014-05-05 12:13:00 Test Item Value Reference Range Interpretation Comments A/G Ratio (test code = A/G Ratio) 1.2 0.7-1.6 [facility]2014-05-05 12:13:00 Test Item Value Reference Range Interpretation Comments B/C Ratio (test code = B/C Ratio) 10 6-25 [facility]2014-05-05 12:13:00 Test Item Value Reference Range Interpretation Comments AGAP (test code = AGAP) 6.9 10.0-20.0 [facility]2014-05-05 12:13:00 Test Item Value Reference Range Interpretation Comments eGFR (test code = eGFR) 101 [facility]2014-05-05 12:13:00 Test Item Value Reference Range Interpretation Comments Glucose Lvl (test code = Glucose Lvl) 84 70-99 [facility]2014-05-05 12:13:00 Test Item Value Reference Range Interpretation Comments Potassium Lvl (test code = Potassium 3.9 3.5-5.1 Lvl) [facility]2014-05-05 12:13:00 Test Item Value Reference Range Interpretation Comments Sodium Lvl (test code = Sodium Lvl) 141 135-145 [place] 538464-05-05 12:13:00 Test Item Value Reference Range Interpretation Comments Creatinine Lvl (test code = Creatinine 0.7 0.5-1.4 Lvl) [facility]2014-05-05 12:13:00 Test Item Value Reference Range Interpretation Comments BUN (test code = BUN) 7 7-22 [place] 538464-05-05 12:13:00 Test Item Value Reference Range Interpretation Comments Bili Total (test code = Bili Total) 0.3 0.2-1.3 [place] 538464-05-05 12:13:00 Test Item Value Reference Range Interpretation Comments Alk Phos (test code = Alk Phos) 71 39-136 [facility]2014-05-05 12:13:00 Test Item Value Reference Range Interpretation Comments AST (test code = AST) 21 See_Comment [Auto mated message] The system which ge nerated this result transmit ulysses reference range : <=37. The reference range was not used to interpr et this result as sharron l/abnormal. [facility]2014-05-05 12:13:00 Test Item Value Reference Range Interpretation Comments ALT (test code = ALT) 20 See_Comment [Auto mated message] The system which ge nerated this result transmit ulysses reference range : <=65. The reference range was not used to interpr et this result as sharron l/abnormal. [place] 538464-05-05 12:13:00 Test Item Value Reference Range Interpretation Comments Total Protein (test code = Total 6.1 6.4-8.4 Protein) [facility]2014-05-05 12:13:00 Test Item Value Reference Range Interpretation Comments CO2 (test code = CO2) 33 24-32 [facility]2014-05-05 12:13:00 Test Item Value Reference Range Interpretation Comments Albumin Lvl (test code = Albumin Lvl) 3.3 3.5-5.0 [facility]2014-05-05 12:13:00 Test Item Value Reference Range Interpretation Comments Calcium Lvl (test code = Calcium Lvl) 8.4 8.5-10.5 [facility]2014-05-05 12:13:00 Test Item Value Reference Range Interpretation Comments Chloride Lvl (test code = Chloride Lvl) 105 95-109 [facility]villeWrgmyvvCBJYMSQBJX9244-45-25 12:13:00 Test Item Value Reference Range Interpretation Comments Basophils # (test code 0.0 See_Comment [Aut omated message] The = Basophils #) system which generated this result tra nsmitted reference range : <=0.2. The reference r jamaica was not used to int erpret this result as normal/abnormal . [facility]villeTapzgbdLTFOBABOZZ5875-25-64 12:13:00 Test Item Value Reference Range Interpretation Comments Segs (test code = Segs) 63.5 45.0-75.0 [facility]villeIctnwlgUOMRCPTREF0395-41-82 12:13:00 Test Item Value Reference Range Interpretation Comments Monocytes # (test code 0.3 See_Comment [Aut omated message] The = Monocytes #) system which generated this result tra nsmitted reference range : <=0.8. The reference r jamaica was not used to int erpret this result as normal/abnormal . [facility]villeNrvyspnQJBTJUNKSQ0454-15-09 12:13:00 Test Item Value Reference Range Interpretation Comments Basophils (test code = 0.2 See_Comment [Aut omated message] The Basophils) system which ge nerated this result tra nsmitted reference range : <=1.0. The reference r jamaica was not used to int erpret this result as normal/abnormal . [facility] StephenvilleRdlcalbETEAUGUPPY8028-90-73 12:13:00 Test Item Value Reference Range Interpretation Comments Lymphocytes # (test code = Lymphocytes 1.5 1.0-5.5 #) [facility]villeWizppxbTGELNZZFHC9860-53-47 12:13:00 Test Item Value Reference Range Interpretation Comments Segs-Bands # (test code = Segs-Bands #) 3.3 1.5-8.1 [facility]villeXsljkvqWWFGNWBREJ9709-15-36 12:13:00 Test Item Value Reference Range Interpretation Comments Eosinophils # (test code 0.1 See_Comment [A utomated message] The = Eosinophils #) system whic h generated this result tra nsmitted reference range : <=0.5. The reference r jamaica was not used to int erpret this result as normal/abnormal . [facility]villeNwfywoiSKYXFMHBAP6528-04-75 12:13:00 Test Item Value Reference Range Interpretation Comments Lymphocytes (test code = Lymphocytes) 28.9 20.0-40.0 [facility] StephenvilleAnbehegCJYONBLGHW0722-89-45 12:13:00 Test Item Value Reference Range Interpretation Comments Monocytes (test code = Monocytes) 6.2 2.0-12.0 [facility]villeHbsltiwDZAFOLUMDV8486-76-96 12:13:00 Test Item Value Reference Range Interpretation Comments Eosinophils (test code = 1.2 See_Comment [A utomated message] The Eosinophils) system which ge nerated this result tra nsmitted reference range : <=4.0. The reference r jamaica was not used to int erpret this result as normal/abnormal . [facility]villeKqgimtpFRHKFJBPHJ7701-39-50 12:13:00 Test Item Value Reference Range Interpretation Comments MCHC (test code = MCHC) 34.3 32.0-36.0 [facility]villeEzzlumwVIPJQZTLVN1421-16-45 12:13:00 Test Item Value Reference Range Interpretation Comments RDW (test code = RDW) 16.5 11.5-14.5 [facility]villeLqfngprNCTUMUPYBN8825-42-49 12:13:00 Test Item Value Reference Range Interpretation Comments MCH (test code = MCH) 31.5 pg 27.0-31.0 [facility] StephenvilleIenaverEYWBGGSJCS7681-96-07 12:13:00 Test Item Value Reference Range Interpretation Comments MCV (test code = MCV) 91.9 81.0-99.0 [facility]villePyqhxfrKBBABEPBQC2834-23-86 12:13:00 Test Item Value Reference Range Interpretation Comments Platelet (test code = Platelet) 177 133-450 [facility] StephenvilleFzjblsoTFAENNGNDO3909-40-90 12:13:00 Test Item Value Reference Range Interpretation Comments MPV (test code = MPV) 7.9 7.4-10.4 [facility]villeIitfvyyXKANEEXWCI5672-28-96 12:13:00 Test Item Value Reference Range Interpretation Comments RBC (test code = RBC) 3.91 4.20-5.40 [facility]villeNotulnxTJAXULUNMN6084-24-78 12:13:00 Test Item Value Reference Range Interpretation Comments Hct (test code = Hct) 35.9 36.0-48.0 [facility]villeXekvbriGNTYICXCYV5317-42-07 12:13:00 Test Item Value Reference Range Interpretation Comments Hgb (test code = Hgb) 12.3 12.0-16.0 [facility] StephenvilleRwezhytRMZIDNVNPZ4526-75-69 12:13:00 Test Item Value Reference Range Interpretation Comments WBC (test code = WBC) 5.1 3.7-10.4 [facility]2014-05-05 12:13:00 Test Item Value Reference Range Interpretation Comments Magnesium Lvl (test code = Magnesium 1.8 1.8-2.4 Lvl) [facility]2014-05-05 12:13:00 Test Item Value Reference Range Interpretation Comments Phosphorus (test code = Phosphorus) 2.6 2.5-4.5 [facility]2014-05-05 12:13:00 Test Item Value Reference Range Interpretation Comments Globulin (test code = Globulin) 2.8 2.0-4.0 [facility]2014-05-05 12:13:00 Test Item Value Reference Range Interpretation Comments A/G Ratio (test code = A/G Ratio) 1.2 0.7-1.6 [facility]2014-05-05 12:13:00 Test Item Value Reference Range Interpretation Comments B/C Ratio (test code = B/C Ratio) 10 6-25 [facility]2014-05-05 12:13:00 Test Item Value Reference Range Interpretation Comments AGAP (test code = AGAP) 6.9 10.0-20.0 [facility]2014-05-05 12:13:00 Test Item Value Reference Range Interpretation Comments eGFR (test code = eGFR) 101 [facility]2014-05-05 12:13:00 Test Item Value Reference Range Interpretation Comments Glucose Lvl (test code = Glucose Lvl) 84 70-99 [facility]2014-05-05 12:13:00 Test Item Value Reference Range Interpretation Comments Potassium Lvl (test code = Potassium 3.9 3.5-5.1 Lvl) [facility]2014-05-05 12:13:00 Test Item Value Reference Range Interpretation Comments Sodium Lvl (test code = Sodium Lvl) 141 135-145 [facility]2014-05-05 12:13:00 Test Item Value Reference Range Interpretation Comments Creatinine Lvl (test code = Creatinine 0.7 0.5-1.4 Lvl) [facility]2014-05-05 12:13:00 Test Item Value Reference Range Interpretation Comments BUN (test code = BUN) 7 7-22 [facility]2014-05-05 12:13:00 Test Item Value Reference Range Interpretation Comments Bili Total (test code = Bili Total) 0.3 0.2-1.3 [facility]2014-05-05 12:13:00 Test Item Value Reference Range Interpretation Comments Alk Phos (test code = Alk Phos) 71 39-136 [facility]2014-05-05 12:13:00 Test Item Value Reference Range Interpretation Comments AST (test code = AST) 21 See_Comment [Auto mated message] The system which ge nerated this result transmit ulysses reference range : <=37. The reference range was not used to interpr et this result as sharron l/abnormal. [facility]2014-05-05 12:13:00 Test Item Value Reference Range Interpretation Comments ALT (test code = ALT) 20 See_Comment [Auto mated message] The system which ge nerated this result transmit ulysses reference range : <=65. The reference range was not used to interpr et this result as sharron l/abnormal. [facility]2014-05-05 12:13:00 Test Item Value Reference Range Interpretation Comments Total Protein (test code = Total 6.1 6.4-8.4 Protein) [facility]2014-05-05 12:13:00 Test Item Value Reference Range Interpretation Comments CO2 (test code = CO2) 33 24-32 [facility]2014-05-05 12:13:00 Test Item Value Reference Range Interpretation Comments Albumin Lvl (test code = Albumin Lvl) 3.3 3.5-5.0 [place] 538464-05-05 12:13:00 Test Item Value Reference Range Interpretation Comments Calcium Lvl (test code = Calcium Lvl) 8.4 8.5-10.5 [facility]2014-05-05 12:13:00 Test Item Value Reference Range Interpretation Comments Chloride Lvl (test code = Chloride Lvl) 105 95-109 [facility]villeCawnivqMQRNTGUAHI5287-50-59 12:13:00 Test Item Value Reference Range Interpretation Comments Basophils # (test code 0.0 See_Comment [Aut omated message] The = Basophils #) system which generated this result tra nsmitted reference range : <=0.2. The reference r j[place] was not used to int erpret this result as normal/abnormal . [facility] StephenvilleCvoduehFTRSWIIVJD4784-86-95 12:13:00 Test Item Value Reference Range Interpretation Comments Segs (test code = Segs) 63.5 45.0-75.0 [facility]villeKfsbrkvYSDGBJAXDB0624-81-39 12:13:00 Test Item Value Reference Range Interpretation Comments Monocytes # (test code 0.3 See_Comment [Aut omated message] The = Monocytes #) system which generated this result tra nsmitted reference range : <=0.8. The reference r jamaica was not used to int erpret this result as normal/abnormal . [facility]villeQwwsvsqXORMNYLMEA6978-86-39 12:13:00 Test Item Value Reference Range Interpretation Comments Basophils (test code = 0.2 See_Comment [Aut omated message] The Basophils) system which ge nerated this result tra nsmitted reference range : <=1.0. The reference r jamaica was not used to int erpret this result as normal/abnormal . [facility]villeEvscpiqTHMAPRTNRF0570-68-47 12:13:00 Test Item Value Reference Range Interpretation Comments Lymphocytes # (test code = Lymphocytes 1.5 1.0-5.5 #) [facility] StephenvilleIzjmublMMKWQQSYPB2966-43-14 12:13:00 Test Item Value Reference Range Interpretation Comments Segs-Bands # (test code = Segs-Bands #) 3.3 1.5-8.1 [facility] StephenvilleYzjqwbpZDFDREHNFL7716-36-10 12:13:00 Test Item Value Reference Range Interpretation Comments Eosinophils # (test code 0.1 See_Comment [A utomated message] The = Eosinophils #) system whic h generated this result tra nsmitted reference range : <=0.5. The reference r jamaica was not used to int erpret this result as normal/abnormal . [facility] StephenvilleLxpnaseAMAAYWRULM8320-19-40 12:13:00 Test Item Value Reference Range Interpretation Comments Lymphocytes (test code = Lymphocytes) 28.9 20.0-40.0 [facility]villeNcspcsrQTRZYPDNRS7715-52-53 12:13:00 Test Item Value Reference Range Interpretation Comments Monocytes (test code = Monocytes) 6.2 2.0-12.0 [facility]villeIbqjnokJAJUDVUDBT1948-25-38 12:13:00 Test Item Value Reference Range Interpretation Comments Eosinophils (test code = 1.2 See_Comment [A utomated message] The Eosinophils) system which ge nerated this result tra nsmitted reference range : <=4.0. The reference r jamaica was not used to int erpret this result as normal/abnormal . [facility]villeGnzeiykYRNGBMXVGH8738-99-88 12:13:00 Test Item Value Reference Range Interpretation Comments MCHC (test code = MCHC) 34.3 32.0-36.0 [facility]villeDxwwkrmPBEAHLMXNY9236-67-73 12:13:00 Test Item Value Reference Range Interpretation Comments RDW (test code = RDW) 16.5 11.5-14.5 [facility] StephenvilleMakghtoTKSEXVKTKS0123-23-85 12:13:00 Test Item Value Reference Range Interpretation Comments MCH (test code = MCH) 31.5 pg 27.0-31.0 [facility]villeRfnkhqfWERELMQURH5850-48-82 12:13:00 Test Item Value Reference Range Interpretation Comments MCV (test code = MCV) 91.9 81.0-99.0 [facility] [place]villeKduespaLAFXUCLPSV1133-74-82 12:13:00 Test Item Value Reference Range Interpretation Comments Platelet (test code = Platelet) 177 133-450 [facility] [place]villeEuxbdskYQBTWINGCP8301-76-17 12:13:00 Test Item Value Reference Range Interpretation Comments MPV (test code = MPV) 7.9 7.4-10.4 [facility] StephenvilleBdxerscKFVIWKXCXB6724-31-55 12:13:00 Test Item Value Reference Range Interpretation Comments RBC (test code = RBC) 3.91 4.20-5.40 [facility] [place]villeVmeqcnwMFLKKJVODY3466-73-32 12:13:00 Test Item Value Reference Range Interpretation Comments Hct (test code = Hct) 35.9 36.0-48.0 [facility] [place]villeAakspkcAYQPODYSIH0940-13-48 12:13:00 Test Item Value Reference Range Interpretation Comments Hgb (test code = Hgb) 12.3 12.0-16.0 [facility] [place]villeOugluqkWSGLTXVKXD4688-04-03 12:13:00 Test Item Value Reference Range Interpretation Comments WBC (test code = WBC) 5.1 3.7-10.4 [facility]2014-05-05 12:13:00 Test Item Value Reference Range Interpretation Comments Magnesium Lvl (test code = Magnesium 1.8 1.8-2.4 Lvl) [facility]2014-05-05 12:13:00 Test Item Value Reference Range Interpretation Comments Phosphorus (test code = Phosphorus) 2.6 2.5-4.5 [facility]2014-05-05 12:13:00 Test Item Value Reference Range Interpretation Comments Globulin (test code = Globulin) 2.8 2.0-4.0 [facility]2014-05-05 12:13:00 Test Item Value Reference Range Interpretation Comments A/G Ratio (test code = A/G Ratio) 1.2 0.7-1.6 [facility]2014-05-05 12:13:00 Test Item Value Reference Range Interpretation Comments B/C Ratio (test code = B/C Ratio) 10 6-25 [facility]2014-05-05 12:13:00 Test Item Value Reference Range Interpretation Comments AGAP (test code = AGAP) 6.9 10.0-20.0 [facility]2014-05-05 12:13:00 Test Item Value Reference Range Interpretation Comments eGFR (test code = eGFR) 101 [facility]2014-05-05 12:13:00 Test Item Value Reference Range Interpretation Comments Glucose Lvl (test code = Glucose Lvl) 84 70-99 [facility]2014-05-05 12:13:00 Test Item Value Reference Range Interpretation Comments Potassium Lvl (test code = Potassium 3.9 3.5-5.1 Lvl) [facility]2014-05-05 12:13:00 Test Item Value Reference Range Interpretation Comments Sodium Lvl (test code = Sodium Lvl) 141 135-145 [facility]2014-05-05 12:13:00 Test Item Value Reference Range Interpretation Comments Creatinine Lvl (test code = Creatinine 0.7 0.5-1.4 Lvl) [facility]2014-05-05 12:13:00 Test Item Value Reference Range Interpretation Comments BUN (test code = BUN) 7 7-22 [place] 538464-05-05 12:13:00 Test Item Value Reference Range Interpretation Comments Bili Total (test code = Bili Total) 0.3 0.2-1.3 [place] 538464-05-05 12:13:00 Test Item Value Reference Range Interpretation Comments Alk Phos (test code = Alk Phos) 71 39-136 [facility]2014-05-05 12:13:00 Test Item Value Reference Range Interpretation Comments AST (test code = AST) 21 See_Comment [Auto mated message] The system which ge nerated this result transmit ulysses reference range : <=37. The reference range was not used to interpr et this result as sharron l/abnormal. [facility]2014-05-05 12:13:00 Test Item Value Reference Range Interpretation Comments ALT (test code = ALT) 20 See_Comment [Auto mated message] The system which ge nerated this result transmit ulysses reference range : <=65. The reference range was not used to interpr et this result as sharron l/abnormal. [place] 538464-05-05 12:13:00 Test Item Value Reference Range Interpretation Comments Total Protein (test code = Total 6.1 6.4-8.4 Protein) [facility]2014-05-05 12:13:00 Test Item Value Reference Range Interpretation Comments CO2 (test code = CO2) 33 24-32 [place] 538464-05-05 12:13:00 Test Item Value Reference Range Interpretation Comments Albumin Lvl (test code = Albumin Lvl) 3.3 3.5-5.0 [facility]2014-05-05 12:13:00 Test Item Value Reference Range Interpretation Comments Calcium Lvl (test code = Calcium Lvl) 8.4 8.5-10.5 [place] 538464-05-05 12:13:00 Test Item Value Reference Range Interpretation Comments Chloride Lvl (test code = Chloride Lvl) 105 95-109 [facility]villeLcsqohnTGIDWDARIS5526-24-36 12:13:00 Test Item Value Reference Range Interpretation Comments Basophils # (test code 0.0 See_Comment [Aut omated message] The = Basophils #) system which generated this result tra nsmitted reference range : <=0.2. The reference r j[place] was not used to int erpret this result as normal/abnormal . [facility]villeQkzrbnyOLVHDUTYVW0993-19-99 12:13:00 Test Item Value Reference Range Interpretation Comments Segs (test code = Segs) 63.5 45.0-75.0 [facility] [place]villeDxfwjzxFLFRCAYSME8638-11-12 12:13:00 Test Item Value Reference Range Interpretation Comments Monocytes # (test code 0.3 See_Comment [Aut omated message] The = Monocytes #) system which generated this result tra nsmitted reference range : <=0.8. The reference r jamaica was not used to int erpret this result as normal/abnormal . [facility]villeFcnfjlnLNZPFXSINF6372-60-60 12:13:00 Test Item Value Reference Range Interpretation Comments Basophils (test code = 0.2 See_Comment [Aut omated message] The Basophils) system which ge nerated this result tra nsmitted reference range : <=1.0. The reference r jamaica was not used to int erpret this result as normal/abnormal . [facility]villeAvhyhviDHHLOKUYOF8466-96-94 12:13:00 Test Item Value Reference Range Interpretation Comments Lymphocytes # (test code = Lymphocytes 1.5 1.0-5.5 #) [facility]villeYlwaundTUSWHBDSWN2617-88-26 12:13:00 Test Item Value Reference Range Interpretation Comments Segs-Bands # (test code = Segs-Bands #) 3.3 1.5-8.1 [facility]villeDnfzncwQCIXOFSAZV9587-22-26 12:13:00 Test Item Value Reference Range Interpretation Comments Eosinophils # (test code 0.1 See_Comment [A utomated message] The = Eosinophils #) system whic h generated this result tra nsmitted reference range : <=0.5. The reference r jamaica was not used to int erpret this result as normal/abnormal . [facility]villeEaqojtkOGDATDAVCN9393-82-57 12:13:00 Test Item Value Reference Range Interpretation Comments Lymphocytes (test code = Lymphocytes) 28.9 20.0-40.0 [facility]villeYhegoueZDRMZYDSXZ3802-84-72 12:13:00 Test Item Value Reference Range Interpretation Comments Monocytes (test code = Monocytes) 6.2 2.0-12.0 [facility]villeVvajjffGKDWWVEWIB9435-31-50 12:13:00 Test Item Value Reference Range Interpretation Comments Eosinophils (test code = 1.2 See_Comment [A utomated message] The Eosinophils) system which ge nerated this result tra nsmitted reference range : <=4.0. The reference r jamaica was not used to int erpret this result as normal/abnormal . [facility]villeKuqytdzYHMSJSYIQE8980-06-49 12:13:00 Test Item Value Reference Range Interpretation Comments MCHC (test code = MCHC) 34.3 32.0-36.0 [facility]villeOgogpupLLOMSWXLFB8784-14-86 12:13:00 Test Item Value Reference Range Interpretation Comments RDW (test code = RDW) 16.5 11.5-14.5 [facility]villeYrjdeyfQNISCLNENV0125-41-71 12:13:00 Test Item Value Reference Range Interpretation Comments MCH (test code = MCH) 31.5 pg 27.0-31.0 [facility] StephenvilleJduqtunILJTIVNXVH3260-96-20 12:13:00 Test Item Value Reference Range Interpretation Comments MCV (test code = MCV) 91.9 81.0-99.0 [facility] StephenvilleZwqbeaaDISYXTJWKT3330-68-94 12:13:00 Test Item Value Reference Range Interpretation Comments Platelet (test code = Platelet) 177 133-450 [facility] StephenvilleQndunghFVEDKQUTVT0334-64-26 12:13:00 Test Item Value Reference Range Interpretation Comments MPV (test code = MPV) 7.9 7.4-10.4 [facility]villeWdlkupaOWOOFFQIGQ5727-05-35 12:13:00 Test Item Value Reference Range Interpretation Comments RBC (test code = RBC) 3.91 4.20-5.40 [facility]villePujzlffJRKMKTJDJI9756-38-99 12:13:00 Test Item Value Reference Range Interpretation Comments Hct (test code = Hct) 35.9 36.0-48.0 [facility]villeDwuwevhAGBIBUCSHT6636-03-73 12:13:00 Test Item Value Reference Range Interpretation Comments Hgb (test code = Hgb) 12.3 12.0-16.0 [facility]villePhskfqpZRSMXXUSXN0556-11-94 12:13:00 Test Item Value Reference Range Interpretation Comments WBC (test code = WBC) 5.1 3.7-10.4 [facility]2014-05-05 12:13:00 Test Item Value Reference Range Interpretation Comments Magnesium Lvl (test code = Magnesium 1.8 1.8-2.4 Lvl) [facility]2014-05-05 12:13:00 Test Item Value Reference Range Interpretation Comments Phosphorus (test code = Phosphorus) 2.6 2.5-4.5 [facility]2014-05-05 12:13:00 Test Item Value Reference Range Interpretation Comments Globulin (test code = Globulin) 2.8 2.0-4.0 [facility]2014-05-05 12:13:00 Test Item Value Reference Range Interpretation Comments A/G Ratio (test code = A/G Ratio) 1.2 0.7-1.6 [facility]2014-05-05 12:13:00 Test Item Value Reference Range Interpretation Comments B/C Ratio (test code = B/C Ratio) 10 6-25 [facility]2014-05-05 12:13:00 Test Item Value Reference Range Interpretation Comments AGAP (test code = AGAP) 6.9 10.0-20.0 [facility]2014-05-05 12:13:00 Test Item Value Reference Range Interpretation Comments eGFR (test code = eGFR) 101 [facility]2014-05-05 12:13:00 Test Item Value Reference Range Interpretation Comments Glucose Lvl (test code = Glucose Lvl) 84 70-99 [facility]2014-05-05 12:13:00 Test Item Value Reference Range Interpretation Comments Potassium Lvl (test code = Potassium 3.9 3.5-5.1 Lvl) [facility]2014-05-05 12:13:00 Test Item Value Reference Range Interpretation Comments Sodium Lvl (test code = Sodium Lvl) 141 135-145 [facility]2014-05-05 12:13:00 Test Item Value Reference Range Interpretation Comments Creatinine Lvl (test code = Creatinine 0.7 0.5-1.4 Lvl) [facility]2014-05-05 12:13:00 Test Item Value Reference Range Interpretation Comments BUN (test code = BUN) 7 7-22 [facility]2014-05-05 12:13:00 Test Item Value Reference Range Interpretation Comments Bili Total (test code = Bili Total) 0.3 0.2-1.3 [facility]2014-05-05 12:13:00 Test Item Value Reference Range Interpretation Comments Alk Phos (test code = Alk Phos) 71 39-136 [facility]2014-05-05 12:13:00 Test Item Value Reference Range Interpretation Comments AST (test code = AST) 21 See_Comment [Auto mated message] The system which ge nerated this result transmit ulysses reference range : <=37. The reference range was not used to interpr et this result as sharron l/abnormal. [facility]2014-05-05 12:13:00 Test Item Value Reference Range Interpretation Comments ALT (test code = ALT) 20 See_Comment [Auto mated message] The system which ge nerated this result transmit ulysses reference range : <=65. The reference range was not used to interpr et this result as sharron l/abnormal. [facility]2014-05-05 12:13:00 Test Item Value Reference Range Interpretation Comments Total Protein (test code = Total 6.1 6.4-8.4 Protein) [facility]2014-05-05 12:13:00 Test Item Value Reference Range Interpretation Comments CO2 (test code = CO2) 33 24-32 [facility]2014-05-05 12:13:00 Test Item Value Reference Range Interpretation Comments Albumin Lvl (test code = Albumin Lvl) 3.3 3.5-5.0 [facility]2014-05-05 12:13:00 Test Item Value Reference Range Interpretation Comments Calcium Lvl (test code = Calcium Lvl) 8.4 8.5-10.5 [facility]2014-05-05 12:13:00 Test Item Value Reference Range Interpretation Comments Chloride Lvl (test code = Chloride Lvl) 105 95-109 [facility]villeUbtxxgkTVHNBWBXAH3487-83-06 12:13:00 Test Item Value Reference Range Interpretation Comments Basophils # (test code 0.0 See_Comment [Aut omated message] The = Basophils #) system which generated this result tra nsmitted reference range : <=0.2. The reference r jamaica was not used to int erpret this result as normal/abnormal . [facility]villeTyheeoxDRQKWKDBOR2129-42-33 12:13:00 Test Item Value Reference Range Interpretation Comments Segs (test code = Segs) 63.5 45.0-75.0 [facility]villeKblmclxUSQFLJIWCC4145-11-71 12:13:00 Test Item Value Reference Range Interpretation Comments Monocytes # (test code 0.3 See_Comment [Aut omated message] The = Monocytes #) system which generated this result tra nsmitted reference range : <=0.8. The reference r jamaica was not used to int erpret this result as normal/abnormal . [facility]villeUrmdoumFJBXKWERYQ6300-96-37 12:13:00 Test Item Value Reference Range Interpretation Comments Basophils (test code = 0.2 See_Comment [Aut omated message] The Basophils) system which ge nerated this result tra nsmitted reference range : <=1.0. The reference r jamaica was not used to int erpret this result as normal/abnormal . [facility] StephenvilleIxweydnEBBHYXULKJ7597-89-22 12:13:00 Test Item Value Reference Range Interpretation Comments Lymphocytes # (test code = Lymphocytes 1.5 1.0-5.5 #) [facility]villeKvzyzwrLEIJDMSMSD7118-39-74 12:13:00 Test Item Value Reference Range Interpretation Comments Segs-Bands # (test code = Segs-Bands #) 3.3 1.5-8.1 [facility]villeGlntjlvZQQSREUMTZ4774-22-88 12:13:00 Test Item Value Reference Range Interpretation Comments Eosinophils # (test code 0.1 See_Comment [A utomated message] The = Eosinophils #) system whic h generated this result tra nsmitted reference range : <=0.5. The reference r jamaica was not used to int erpret this result as normal/abnormal . [facility]villeUuqvtviRKMHEBXPDV4225-58-74 12:13:00 Test Item Value Reference Range Interpretation Comments Lymphocytes (test code = Lymphocytes) 28.9 20.0-40.0 [facility]villeOktmkbsORMWHTWPKV1100-23-50 12:13:00 Test Item Value Reference Range Interpretation Comments Monocytes (test code = Monocytes) 6.2 2.0-12.0 [facility]villeFidokggLUNQAVTPQE1039-04-76 12:13:00 Test Item Value Reference Range Interpretation Comments Eosinophils (test code = 1.2 See_Comment [A utomated message] The Eosinophils) system which ge nerated this result tra nsmitted reference range : <=4.0. The reference r jamaica was not used to int erpret this result as normal/abnormal . [facility] StephenvilleMlgfxhfUDGJWCKJDX2132-42-46 12:13:00 Test Item Value Reference Range Interpretation Comments MCHC (test code = MCHC) 34.3 32.0-36.0 [facility]villeOqwgjdjDPIZLIMOTX4710-28-51 12:13:00 Test Item Value Reference Range Interpretation Comments RDW (test code = RDW) 16.5 11.5-14.5 [facility] StephenvilleZnpqdipIGFTBEZWUI5673-82-37 12:13:00 Test Item Value Reference Range Interpretation Comments MCH (test code = MCH) 31.5 pg 27.0-31.0 [facility]villeYnnwlziDHAFCUPSGM9292-42-57 12:13:00 Test Item Value Reference Range Interpretation Comments MCV (test code = MCV) 91.9 81.0-99.0 [facility] StephenvilleUpeykdnIXSTKASBJZ4922-18-11 12:13:00 Test Item Value Reference Range Interpretation Comments Platelet (test code = Platelet) 177 133-450 [facility]villeWqddcxiYCNPEISDLU9481-83-55 12:13:00 Test Item Value Reference Range Interpretation Comments MPV (test code = MPV) 7.9 7.4-10.4 [facility] StephenvilleJdxhqkuXAQXMPGBKE8750-17-57 12:13:00 Test Item Value Reference Range Interpretation Comments RBC (test code = RBC) 3.91 4.20-5.40 [facility]villeTforueeCUBZBFABJF0203-22-04 12:13:00 Test Item Value Reference Range Interpretation Comments Hct (test code = Hct) 35.9 36.0-48.0 [facility]villeSysjfqwUFEYIYMCBR4671-05-96 12:13:00 Test Item Value Reference Range Interpretation Comments Hgb (test code = Hgb) 12.3 12.0-16.0 [facility] StephenvilleGlpbfjbFANOPZNIYZ7780-48-22 12:13:00 Test Item Value Reference Range Interpretation Comments WBC (test code = WBC) 5.1 3.7-10.4 [facility]2014-05-05 12:13:00 Test Item Value Reference Range Interpretation Comments Magnesium Lvl (test code = Magnesium 1.8 1.8-2.4 Lvl) [facility]2014-05-05 12:13:00 Test Item Value Reference Range Interpretation Comments Phosphorus (test code = Phosphorus) 2.6 2.5-4.5 [facility]2014-05-05 12:13:00 Test Item Value Reference Range Interpretation Comments Globulin (test code = Globulin) 2.8 2.0-4.0 [facility]2014-05-05 12:13:00 Test Item Value Reference Range Interpretation Comments A/G Ratio (test code = A/G Ratio) 1.2 0.7-1.6 [facility]2014-05-05 12:13:00 Test Item Value Reference Range Interpretation Comments B/C Ratio (test code = B/C Ratio) 10 6-25 [place] 538464-05-05 12:13:00 Test Item Value Reference Range Interpretation Comments AGAP (test code = AGAP) 6.9 10.0-20.0 [facility]2014-05-05 12:13:00 Test Item Value Reference Range Interpretation Comments eGFR (test code = eGFR) 101 [facility]2014-05-05 12:13:00 Test Item Value Reference Range Interpretation Comments Glucose Lvl (test code = Glucose Lvl) 84 70-99 [facility]2014-05-05 12:13:00 Test Item Value Reference Range Interpretation Comments Potassium Lvl (test code = Potassium 3.9 3.5-5.1 Lvl) [facility]2014-05-05 12:13:00 Test Item Value Reference Range Interpretation Comments Sodium Lvl (test code = Sodium Lvl) 141 135-145 [facility]2014-05-05 12:13:00 Test Item Value Reference Range Interpretation Comments Creatinine Lvl (test code = Creatinine 0.7 0.5-1.4 Lvl) [facility]2014-05-05 12:13:00 Test Item Value Reference Range Interpretation Comments BUN (test code = BUN) 7 7-22 [facility]2014-05-05 12:13:00 Test Item Value Reference Range Interpretation Comments Bili Total (test code = Bili Total) 0.3 0.2-1.3 [facility]2014-05-05 12:13:00 Test Item Value Reference Range Interpretation Comments Alk Phos (test code = Alk Phos) 71 39-136 [facility]2014-05-05 12:13:00 Test Item Value Reference Range Interpretation Comments AST (test code = AST) 21 See_Comment [Auto mated message] The system which ge nerated this result transmit ulysses reference range : <=37. The reference range was not used to interpr et this result as sharron l/abnormal. [facility]2014-05-05 12:13:00 Test Item Value Reference Range Interpretation Comments ALT (test code = ALT) 20 See_Comment [Auto mated message] The system which ge nerated this result transmit ulysses reference range : <=65. The reference range was not used to interpr et this result as sharron l/abnormal. [place] 538464-05-05 12:13:00 Test Item Value Reference Range Interpretation Comments Total Protein (test code = Total 6.1 6.4-8.4 Protein) [facility]2014-05-05 12:13:00 Test Item Value Reference Range Interpretation Comments CO2 (test code = CO2) 33 24-32 [facility]2014-05-05 12:13:00 Test Item Value Reference Range Interpretation Comments Albumin Lvl (test code = Albumin Lvl) 3.3 3.5-5.0 [facility]2014-05-05 12:13:00 Test Item Value Reference Range Interpretation Comments Calcium Lvl (test code = Calcium Lvl) 8.4 8.5-10.5 [facility]2014-05-05 12:13:00 Test Item Value Reference Range Interpretation Comments Chloride Lvl (test code = Chloride Lvl) 105 95-109 [facility] StephenvilleZwbraycWRHBZXVNPY3147-81-56 12:13:00 Test Item Value Reference Range Interpretation Comments Basophils # (test code 0.0 See_Comment [Aut omated message] The = Basophils #) system which generated this result tra nsmitted reference range : <=0.2. The reference r jamaica was not used to int erpret this result as normal/abnormal . [facility] StephenvilleBzkxjcyEELIMHBCHU4486-15-05 12:13:00 Test Item Value Reference Range Interpretation Comments Segs (test code = Segs) 63.5 45.0-75.0 [facility] StephenvilleUskclmjUSZDFQJPHP7586-24-23 12:13:00 Test Item Value Reference Range Interpretation Comments Monocytes # (test code 0.3 See_Comment [Aut omated message] The = Monocytes #) system which generated this result tra nsmitted reference range : <=0.8. The reference r jamaica was not used to int erpret this result as normal/abnormal . [facility]villeGslrgyeFVGDFDDTGZ1028-04-31 12:13:00 Test Item Value Reference Range Interpretation Comments Basophils (test code = 0.2 See_Comment [Aut omated message] The Basophils) system which ge nerated this result tra nsmitted reference range : <=1.0. The reference r jamaica was not used to int erpret this result as normal/abnormal . [facility] StephenvilleJdhjnmiAYJDYPJNYE8496-85-22 12:13:00 Test Item Value Reference Range Interpretation Comments Lymphocytes # (test code = Lymphocytes 1.5 1.0-5.5 #) [facility]villeWoemhifDLZIWUIZIM4734-47-98 12:13:00 Test Item Value Reference Range Interpretation Comments Segs-Bands # (test code = Segs-Bands #) 3.3 1.5-8.1 [facility] [place]villeIlrgmdmRKERACBASN8024-83-71 12:13:00 Test Item Value Reference Range Interpretation Comments Eosinophils # (test code 0.1 See_Comment [A utomated message] The = Eosinophils #) system whic h generated this result tra nsmitted reference range : <=0.5. The reference r jamaica was not used to int erpret this result as normal/abnormal . [facility]villeEpnzktgCHCSCRIZBQ1498-20-95 12:13:00 Test Item Value Reference Range Interpretation Comments Lymphocytes (test code = Lymphocytes) 28.9 20.0-40.0 [facility]villeKkktbtfGZRTFCQRPJ5535-03-61 12:13:00 Test Item Value Reference Range Interpretation Comments Monocytes (test code = Monocytes) 6.2 2.0-12.0 [facility] [place]villeNaazisbJEPIOFYIAG3046-04-14 12:13:00 Test Item Value Reference Range Interpretation Comments Eosinophils (test code = 1.2 See_Comment [A utomated message] The Eosinophils) system which ge nerated this result tra nsmitted reference range : <=4.0. The reference r jamaica was not used to int erpret this result as normal/abnormal . [facility]villeEuehuyhCTTUUXLZPP1710-65-03 12:13:00 Test Item Value Reference Range Interpretation Comments MCHC (test code = MCHC) 34.3 32.0-36.0 [facility]villeGmvwwfgTZFRYAPMBK6569-14-91 12:13:00 Test Item Value Reference Range Interpretation Comments RDW (test code = RDW) 16.5 11.5-14.5 [facility] StephenvilleLysnqayKCXZRZAEFK7954-08-35 12:13:00 Test Item Value Reference Range Interpretation Comments MCH (test code = MCH) 31.5 pg 27.0-31.0 [facility]villeLudytlfZJGKZNFBCP3184-22-86 12:13:00 Test Item Value Reference Range Interpretation Comments MCV (test code = MCV) 91.9 81.0-99.0 [facility]villeTjnqejqJBTMRIARCG8886-29-02 12:13:00 Test Item Value Reference Range Interpretation Comments Platelet (test code = Platelet) 177 133-450 [facility] StephenvilleRognjmrTZTPNJENEZ2491-64-31 12:13:00 Test Item Value Reference Range Interpretation Comments MPV (test code = MPV) 7.9 7.4-10.4 [facility] StephenvilleHyeuinyZVLIEWEHQB8837-48-48 12:13:00 Test Item Value Reference Range Interpretation Comments RBC (test code = RBC) 3.91 4.20-5.40 [facility]villeEyjplgwJPMMTLTIEZ5168-29-23 12:13:00 Test Item Value Reference Range Interpretation Comments Hct (test code = Hct) 35.9 36.0-48.0 [facility] StephenvilleOqfehqtBBUTEZRIIT4024-48-05 12:13:00 Test Item Value Reference Range Interpretation Comments Hgb (test code = Hgb) 12.3 12.0-16.0 [facility] StephenvilleEljcufaRIPPVBRKSP3783-34-99 12:13:00 Test Item Value Reference Range Interpretation Comments WBC (test code = WBC) 5.1 3.7-10.4 [facility]2014-05-05 12:13:00 Test Item Value Reference Range Interpretation Comments Magnesium Lvl (test code = Magnesium 1.8 1.8-2.4 Lvl) [facility]2014-05-05 12:13:00 Test Item Value Reference Range Interpretation Comments Phosphorus (test code = Phosphorus) 2.6 2.5-4.5 [facility]2014-05-05 12:13:00 Test Item Value Reference Range Interpretation Comments Globulin (test code = Globulin) 2.8 2.0-4.0 [facility]2014-05-05 12:13:00 Test Item Value Reference Range Interpretation Comments A/G Ratio (test code = A/G Ratio) 1.2 0.7-1.6 [facility]2014-05-05 12:13:00 Test Item Value Reference Range Interpretation Comments B/C Ratio (test code = B/C Ratio) 10 6-25 [facility]2014-05-05 12:13:00 Test Item Value Reference Range Interpretation Comments AGAP (test code = AGAP) 6.9 10.0-20.0 [facility]2014-05-05 12:13:00 Test Item Value Reference Range Interpretation Comments eGFR (test code = eGFR) 101 [facility]2014-05-05 12:13:00 Test Item Value Reference Range Interpretation Comments Glucose Lvl (test code = Glucose Lvl) 84 70-99 [facility]2014-05-05 12:13:00 Test Item Value Reference Range Interpretation Comments Potassium Lvl (test code = Potassium 3.9 3.5-5.1 Lvl) [facility]2014-05-05 12:13:00 Test Item Value Reference Range Interpretation Comments Sodium Lvl (test code = Sodium Lvl) 141 135-145 [facility]2014-05-05 12:13:00 Test Item Value Reference Range Interpretation Comments Creatinine Lvl (test code = Creatinine 0.7 0.5-1.4 Lvl) [facility]2014-05-05 12:13:00 Test Item Value Reference Range Interpretation Comments BUN (test code = BUN) 7 7-22 [facility]2014-05-05 12:13:00 Test Item Value Reference Range Interpretation Comments Bili Total (test code = Bili Total) 0.3 0.2-1.3 [facility]2014-05-05 12:13:00 Test Item Value Reference Range Interpretation Comments Alk Phos (test code = Alk Phos) 71 39-136 [facility]2014-05-05 12:13:00 Test Item Value Reference Range Interpretation Comments AST (test code = AST) 21 See_Comment [Auto mated message] The system which ge nerated this result transmit ulysses reference range : <=37. The reference range was not used to interpr et this result as sharron l/abnormal. [facility]2014-05-05 12:13:00 Test Item Value Reference Range Interpretation Comments ALT (test code = ALT) 20 See_Comment [Auto mated message] The system which ge nerated this result transmit ulysses reference range : <=65. The reference range was not used to interpr et this result as sharron l/abnormal. [facility]2014-05-05 12:13:00 Test Item Value Reference Range Interpretation Comments Total Protein (test code = Total 6.1 6.4-8.4 Protein) [facility]2014-05-05 12:13:00 Test Item Value Reference Range Interpretation Comments CO2 (test code = CO2) 33 24-32 [facility]2014-05-05 12:13:00 Test Item Value Reference Range Interpretation Comments Albumin Lvl (test code = Albumin Lvl) 3.3 3.5-5.0 [facility]2014-05-05 12:13:00 Test Item Value Reference Range Interpretation Comments Calcium Lvl (test code = Calcium Lvl) 8.4 8.5-10.5 [facility]2014-05-05 12:13:00 Test Item Value Reference Range Interpretation Comments Chloride Lvl (test code = Chloride Lvl) 105 95-109 [facility]villeRsmvlnxLCWIRIXNTC4555-14-66 12:13:00 Test Item Value Reference Range Interpretation Comments Basophils # (test code 0.0 See_Comment [Aut omated message] The = Basophils #) system which generated this result tra nsmitted reference range : <=0.2. The reference r jamaica was not used to int erpret this result as normal/abnormal . [facility] StephenvilleIzznazkINBMDLRBYY8436-46-59 12:13:00 Test Item Value Reference Range Interpretation Comments Segs (test code = Segs) 63.5 45.0-75.0 [facility] StephenvilleUrsyssaUHHZNSGTJR1982-11-96 12:13:00 Test Item Value Reference Range Interpretation Comments Monocytes # (test code 0.3 See_Comment [Aut omated message] The = Monocytes #) system which generated this result tra nsmitted reference range : <=0.8. The reference r jamaica was not used to int erpret this result as normal/abnormal . [facility] StephenvilleDkdcopoRPBJFADEEH9397-99-64 12:13:00 Test Item Value Reference Range Interpretation Comments Basophils (test code = 0.2 See_Comment [Aut omated message] The Basophils) system which ge nerated this result tra nsmitted reference range : <=1.0. The reference r jamaica was not used to int erpret this result as normal/abnormal . [facility]villeGxvovagTJXMARIJHW2847-65-05 12:13:00 Test Item Value Reference Range Interpretation Comments Lymphocytes # (test code = Lymphocytes 1.5 1.0-5.5 #) [facility]villeHihehgqFSYFCTVTML5107-51-15 12:13:00 Test Item Value Reference Range Interpretation Comments Segs-Bands # (test code = Segs-Bands #) 3.3 1.5-8.1 [facility]villePealtajXBGVELGKDY8926-85-10 12:13:00 Test Item Value Reference Range Interpretation Comments Eosinophils # (test code 0.1 See_Comment [A utomated message] The = Eosinophils #) system whic h generated this result tra nsmitted reference range : <=0.5. The reference r jamaica was not used to int erpret this result as normal/abnormal . [facility]villeKmterodBGQXUTXLLS0038-61-77 12:13:00 Test Item Value Reference Range Interpretation Comments Lymphocytes (test code = Lymphocytes) 28.9 20.0-40.0 [facility] StephenvilleHhppwegQIRCPLUREJ9192-44-96 12:13:00 Test Item Value Reference Range Interpretation Comments Monocytes (test code = Monocytes) 6.2 2.0-12.0 [facility] StephenvilleLeczfduBPNDYUKAOK5826-54-04 12:13:00 Test Item Value Reference Range Interpretation Comments Eosinophils (test code = 1.2 See_Comment [A utomated message] The Eosinophils) system which ge nerated this result tra nsmitted reference range : <=4.0. The reference r jamaica was not used to int erpret this result as normal/abnormal . [facility] StephenvilleIwwgvgnBHLJKPKKOJ4037-11-45 12:13:00 Test Item Value Reference Range Interpretation Comments MCHC (test code = MCHC) 34.3 32.0-36.0 [facility]villeEyawgjfJGBVVRMPKN0448-45-40 12:13:00 Test Item Value Reference Range Interpretation Comments RDW (test code = RDW) 16.5 11.5-14.5 [facility] StephenvilleBmdbgweGAKQOQXPPD3534-01-38 12:13:00 Test Item Value Reference Range Interpretation Comments MCH (test code = MCH) 31.5 pg 27.0-31.0 [facility]villeXtrwfegKOJZNJFKHK8624-70-55 12:13:00 Test Item Value Reference Range Interpretation Comments MCV (test code = MCV) 91.9 81.0-99.0 [facility]villeXpattguDYLVUIUBTV3236-99-10 12:13:00 Test Item Value Reference Range Interpretation Comments Platelet (test code = Platelet) 177 133-450 [facility]villeCxoqcdlKLSGEDPQXH5441-49-13 12:13:00 Test Item Value Reference Range Interpretation Comments MPV (test code = MPV) 7.9 7.4-10.4 [facility]villeXhyegumMOOKXXLHBI9101-74-98 12:13:00 Test Item Value Reference Range Interpretation Comments RBC (test code = RBC) 3.91 4.20-5.40 [facility]villeXlxrpvePXMVOZYEJX4649-44-96 12:13:00 Test Item Value Reference Range Interpretation Comments Hct (test code = Hct) 35.9 36.0-48.0 [facility]villeTeysmgnILRKEBFXNE1458-64-06 12:13:00 Test Item Value Reference Range Interpretation Comments Hgb (test code = Hgb) 12.3 12.0-16.0 [facility] StephenvilleWweoijqZEQORSNBSO1695-06-12 12:13:00 Test Item Value Reference Range Interpretation Comments WBC (test code = WBC) 5.1 3.7-10.4 [facility]2014-05-05 12:13:00 Test Item Value Reference Range Interpretation Comments Magnesium Lvl (test code = Magnesium 1.8 1.8-2.4 Lvl) [facility]2014-05-05 12:13:00 Test Item Value Reference Range Interpretation Comments Phosphorus (test code = Phosphorus) 2.6 2.5-4.5 [facility]2014-05-05 12:13:00 Test Item Value Reference Range Interpretation Comments Globulin (test code = Globulin) 2.8 2.0-4.0 [facility]2014-05-05 12:13:00 Test Item Value Reference Range Interpretation Comments A/G Ratio (test code = A/G Ratio) 1.2 0.7-1.6 [facility]2014-05-05 12:13:00 Test Item Value Reference Range Interpretation Comments B/C Ratio (test code = B/C Ratio) 10 6-25 [place] 538464-05-05 12:13:00 Test Item Value Reference Range Interpretation Comments AGAP (test code = AGAP) 6.9 10.0-20.0 [facility]2014-05-05 12:13:00 Test Item Value Reference Range Interpretation Comments eGFR (test code = eGFR) 101 [facility]2014-05-05 12:13:00 Test Item Value Reference Range Interpretation Comments Glucose Lvl (test code = Glucose Lvl) 84 70-99 [facility]2014-05-05 12:13:00 Test Item Value Reference Range Interpretation Comments Potassium Lvl (test code = Potassium 3.9 3.5-5.1 Lvl) [facility]2014-05-05 12:13:00 Test Item Value Reference Range Interpretation Comments Sodium Lvl (test code = Sodium Lvl) 141 135-145 [facility]2014-05-05 12:13:00 Test Item Value Reference Range Interpretation Comments Creatinine Lvl (test code = Creatinine 0.7 0.5-1.4 Lvl) [facility]2014-05-05 12:13:00 Test Item Value Reference Range Interpretation Comments BUN (test code = BUN) 7 7-22 [facility]2014-05-05 12:13:00 Test Item Value Reference Range Interpretation Comments Bili Total (test code = Bili Total) 0.3 0.2-1.3 [facility]2014-05-05 12:13:00 Test Item Value Reference Range Interpretation Comments Alk Phos (test code = Alk Phos) 71 39-136 [facility]2014-05-05 12:13:00 Test Item Value Reference Range Interpretation Comments AST (test code = AST) 21 See_Comment [Auto mated message] The system which ge nerated this result transmit ulysses reference range : <=37. The reference range was not used to interpr et this result as sharron l/abnormal. [place] 538464-05-05 12:13:00 Test Item Value Reference Range Interpretation Comments ALT (test code = ALT) 20 See_Comment [Auto mated message] The system which ge nerated this result transmit ulysses reference range : <=65. The reference range was not used to interpr et this result as sharron l/abnormal. [facility]2014-05-05 12:13:00 Test Item Value Reference Range Interpretation Comments Total Protein (test code = Total 6.1 6.4-8.4 Protein) [facility]2014-05-05 12:13:00 Test Item Value Reference Range Interpretation Comments CO2 (test code = CO2) 33 24-32 [place] 538464-05-05 12:13:00 Test Item Value Reference Range Interpretation Comments Albumin Lvl (test code = Albumin Lvl) 3.3 3.5-5.0 [facility]2014-05-05 12:13:00 Test Item Value Reference Range Interpretation Comments Calcium Lvl (test code = Calcium Lvl) 8.4 8.5-10.5 [facility]2014-05-05 12:13:00 Test Item Value Reference Range Interpretation Comments Chloride Lvl (test code = Chloride Lvl) 105 95-109 [facility]villeTqkfttwEVSJTNJHME9934-94-43 12:13:00 Test Item Value Reference Range Interpretation Comments Basophils # (test code 0.0 See_Comment [Aut omated message] The = Basophils #) system which generated this result tra nsmitted reference range : <=0.2. The reference r jamaica was not used to int erpret this result as normal/abnormal . [facility] StephenvilleOkrorqhHPUGIERIRS6773-39-64 12:13:00 Test Item Value Reference Range Interpretation Comments Segs (test code = Segs) 63.5 45.0-75.0 [facility] StephenvilleRwrkfyoFELAHJATMI4671-28-17 12:13:00 Test Item Value Reference Range Interpretation Comments Monocytes # (test code 0.3 See_Comment [Aut omated message] The = Monocytes #) system which generated this result tra nsmitted reference range : <=0.8. The reference r jamaica was not used to int erpret this result as normal/abnormal . [facility]villeXvtvevkCMYMKKPEXX0772-12-74 12:13:00 Test Item Value Reference Range Interpretation Comments Basophils (test code = 0.2 See_Comment [Aut omated message] The Basophils) system which ge nerated this result tra nsmitted reference range : <=1.0. The reference r jamaica was not used to int erpret this result as normal/abnormal . [facility] StephenvilleCtvmffiDXQLKZYKAS1706-32-19 12:13:00 Test Item Value Reference Range Interpretation Comments Lymphocytes # (test code = Lymphocytes 1.5 1.0-5.5 #) [facility] StephenvilleZmyoikxACSZHLYQIW1004-72-02 12:13:00 Test Item Value Reference Range Interpretation Comments Segs-Bands # (test code = Segs-Bands #) 3.3 1.5-8.1 [facility]villeGamrgqxHIHQDXBHRQ3350-28-84 12:13:00 Test Item Value Reference Range Interpretation Comments Eosinophils # (test code 0.1 See_Comment [A utomated message] The = Eosinophils #) system whic h generated this result tra nsmitted reference range : <=0.5. The reference r jamaica was not used to int erpret this result as normal/abnormal . [facility]villeCujuhdqRSCTOTGGEA1963 12:13:00 Test Item Value Reference Range Interpretation Comments Lymphocytes (test code = Lymphocytes) 28.9 20.0-40.0 [facility] StephenvilleAnkayrfKKQEVHHJYU6128-34-63 12:13:00 Test Item Value Reference Range Interpretation Comments Monocytes (test code = Monocytes) 6.2 2.0-12.0 [facility] StephenvilleLppfrimZAVWRQITSQ6919-83-27 12:13:00 Test Item Value Reference Range Interpretation Comments Eosinophils (test code = 1.2 See_Comment [A utomated message] The Eosinophils) system which ge nerated this result tra nsmitted reference range : <=4.0. The reference r jamaica was not used to int erpret this result as normal/abnormal . [facility] StephenvilleSkpfkjsYKNHKJUTQZ7798-75-46 12:13:00 Test Item Value Reference Range Interpretation Comments MCHC (test code = MCHC) 34.3 32.0-36.0 [facility]villeXxhrnglGAYWAPCYIO2015-03-03 12:13:00 Test Item Value Reference Range Interpretation Comments RDW (test code = RDW) 16.5 11.5-14.5 [facility] StephenvilleFwzocvaPLTWKLJZTM7888-84-25 12:13:00 Test Item Value Reference Range Interpretation Comments MCH (test code = MCH) 31.5 pg 27.0-31.0 [facility] StephenvilleAjifboaMBYWKPTRXL4507-03-24 12:13:00 Test Item Value Reference Range Interpretation Comments MCV (test code = MCV) 91.9 81.0-99.0 [facility]villeXvkhpfqWDBBPSYTPZ8695-31-49 12:13:00 Test Item Value Reference Range Interpretation Comments Platelet (test code = Platelet) 177 133-450 [facility] StephenvilleYrtkvoxDDACGUZSWV1721-51-42 12:13:00 Test Item Value Reference Range Interpretation Comments MPV (test code = MPV) 7.9 7.4-10.4 [facility]villeHtrohmgTTEWCRNTTT2948-80-59 12:13:00 Test Item Value Reference Range Interpretation Comments RBC (test code = RBC) 3.91 4.20-5.40 [facility] StephenvilleJzckbxsUCJZHMAXBE1083-83-20 12:13:00 Test Item Value Reference Range Interpretation Comments Hct (test code = Hct) 35.9 36.0-48.0 [facility] StephenvilleQjunfnbFEWPVLXFCG3080-48-99 12:13:00 Test Item Value Reference Range Interpretation Comments Hgb (test code = Hgb) 12.3 12.0-16.0 [facility]villeOmjznycOZLXQGWJHR3235-50-44 12:13:00 Test Item Value Reference Range Interpretation Comments WBC (test code = WBC) 5.1 3.7-10.4 [facility]2014-05-05 12:13:00 Test Item Value Reference Range Interpretation Comments Magnesium Lvl (test code = Magnesium 1.8 1.8-2.4 Lvl) [facility]2014-05-05 12:13:00 Test Item Value Reference Range Interpretation Comments Phosphorus (test code = Phosphorus) 2.6 2.5-4.5 [facility]2014-05-05 12:13:00 Test Item Value Reference Range Interpretation Comments Globulin (test code = Globulin) 2.8 2.0-4.0 [facility]2014-05-05 12:13:00 Test Item Value Reference Range Interpretation Comments A/G Ratio (test code = A/G Ratio) 1.2 0.7-1.6 [facility]2014-05-05 12:13:00 Test Item Value Reference Range Interpretation Comments B/C Ratio (test code = B/C Ratio) 10 6-25 [facility]2014-05-05 12:13:00 Test Item Value Reference Range Interpretation Comments AGAP (test code = AGAP) 6.9 10.0-20.0 [facility]2014-05-05 12:13:00 Test Item Value Reference Range Interpretation Comments eGFR (test code = eGFR) 101 [place] 538464-05-05 12:13:00 Test Item Value Reference Range Interpretation Comments Glucose Lvl (test code = Glucose Lvl) 84 70-99 [place] 538464-05-05 12:13:00 Test Item Value Reference Range Interpretation Comments Potassium Lvl (test code = Potassium 3.9 3.5-5.1 Lvl) [place] 538464-05-05 12:13:00 Test Item Value Reference Range Interpretation Comments Sodium Lvl (test code = Sodium Lvl) 141 135-145 [place] 538464-05-05 12:13:00 Test Item Value Reference Range Interpretation Comments Creatinine Lvl (test code = Creatinine 0.7 0.5-1.4 Lvl) [place] 538464-05-05 12:13:00 Test Item Value Reference Range Interpretation Comments BUN (test code = BUN) 7 7-22 [place] [address]-05-05 12:13:00 Test Item Value Reference Range Interpretation Comments Bili Total (test code = Bili Total) 0.3 0.2-1.3 [place] 538464-05-05 12:13:00 Test Item Value Reference Range Interpretation Comments Alk Phos (test code = Alk Phos) 71 39-136 [place] 538464-05-05 12:13:00 Test Item Value Reference Range Interpretation Comments AST (test code = AST) 21 See_Comment [Auto mated message] The system which ge nerated this result transmit ulysses reference range : <=37. The reference range was not used to interpr et this result as sharron l/abnormal. [place] 538464-05-05 12:13:00 Test Item Value Reference Range Interpretation Comments ALT (test code = ALT) 20 See_Comment [Auto mated message] The system which ge nerated this result transmit ulysses reference range : <=65. The reference range was not used to interpr et this result as sharron l/abnormal. [facility]2014-05-05 12:13:00 Test Item Value Reference Range Interpretation Comments Total Protein (test code = Total 6.1 6.4-8.4 Protein) [facility]2014-05-05 12:13:00 Test Item Value Reference Range Interpretation Comments CO2 (test code = CO2) 33 24-32 [facility]2014-05-05 12:13:00 Test Item Value Reference Range Interpretation Comments Albumin Lvl (test code = Albumin Lvl) 3.3 3.5-5.0 [facility]2014-05-05 12:13:00 Test Item Value Reference Range Interpretation Comments Calcium Lvl (test code = Calcium Lvl) 8.4 8.5-10.5 [facility]2014-05-05 12:13:00 Test Item Value Reference Range Interpretation Comments Chloride Lvl (test code = Chloride Lvl) 105 95-109 [facility]villeRxegbgmZSLFFHSGMH2172-95-24 12:13:00 Test Item Value Reference Range Interpretation Comments Basophils # (test code 0.0 See_Comment [Aut omated message] The = Basophils #) system which generated this result tra nsmitted reference range : <=0.2. The reference r jamaica was not used to int erpret this result as normal/abnormal . [facility]villeDzaqldqVLUWOSJHVQ4752-45-60 12:13:00 Test Item Value Reference Range Interpretation Comments Segs (test code = Segs) 63.5 45.0-75.0 [facility]villeQfydgvaDLXGMIMTWO1479-82-57 12:13:00 Test Item Value Reference Range Interpretation Comments Monocytes # (test code 0.3 See_Comment [Aut omated message] The = Monocytes #) system which generated this result tra nsmitted reference range : <=0.8. The reference r jamaica was not used to int erpret this result as normal/abnormal . [facility] StephenvilleVgrneprMGWFQRNKJQ7451-65-41 12:13:00 Test Item Value Reference Range Interpretation Comments Basophils (test code = 0.2 See_Comment [Aut omated message] The Basophils) system which ge nerated this result tra nsmitted reference range : <=1.0. The reference r jamaica was not used to int erpret this result as normal/abnormal . [place] 238064-05-05 12:13:00 Test Item Value Reference Range Interpretation Comments Lymphocytes # (test code = Lymphocytes 1.5 1.0-5.5 #) [facility]villeGnqpsjyYJKEQDDVRP5266-13-55 12:13:00 Test Item Value Reference Range Interpretation Comments Segs-Bands # (test code = Segs-Bands #) 3.3 1.5-8.1 [facility] StephenvilleZqsgbjpIHSDGLQZAF5987-11-71 12:13:00 Test Item Value Reference Range Interpretation Comments Eosinophils # (test code 0.1 See_Comment [A utomated message] The = Eosinophils #) system whic h generated this result tra nsmitted reference range : <=0.5. The reference r jamaica was not used to int erpret this result as normal/abnormal . [facility] [place]villeKqaylrgXWNKKUSDQS0827-45-38 12:13:00 Test Item Value Reference Range Interpretation Comments Lymphocytes (test code = Lymphocytes) 28.9 20.0-40.0 [facility] StephenvilleOhdmyorVXJXDDIFSJ9798-68-42 12:13:00 Test Item Value Reference Range Interpretation Comments Monocytes (test code = Monocytes) 6.2 2.0-12.0 [facility] StephenvilleJfvxxsrQAKLGKMQLR1145-09-83 12:13:00 Test Item Value Reference Range Interpretation Comments Eosinophils (test code = 1.2 See_Comment [A utomated message] The Eosinophils) system which ge nerated this result tra nsmitted reference range : <=4.0. The reference r jamaica was not used to int erpret this result as normal/abnormal . [facility] StephenvilleKocvpayCKCVSBSFZN9576-08-90 12:13:00 Test Item Value Reference Range Interpretation Comments MCHC (test code = MCHC) 34.3 32.0-36.0 [facility] StephenvilleLfuxdauABLYODWCHE0076-79-30 12:13:00 Test Item Value Reference Range Interpretation Comments RDW (test code = RDW) 16.5 11.5-14.5 [facility] StephenvilleNaltnewNOCNDYJKPJ5805-66-28 12:13:00 Test Item Value Reference Range Interpretation Comments MCH (test code = MCH) 31.5 pg 27.0-31.0 [facility] StephenvilleAzospukUMNDHULBOG4713-64-78 12:13:00 Test Item Value Reference Range Interpretation Comments MCV (test code = MCV) 91.9 81.0-99.0 [facility] StephenvilleWpgfqthDRZEOUYBTK4107-82-14 12:13:00 Test Item Value Reference Range Interpretation Comments Platelet (test code = Platelet) 177 133-450 [facility] StephenvilleLldyouyEBBTTLAVIL4423-21-80 12:13:00 Test Item Value Reference Range Interpretation Comments MPV (test code = MPV) 7.9 7.4-10.4 [facility] StephenvilleHrmveavAJMQGUARSD9243-53-80 12:13:00 Test Item Value Reference Range Interpretation Comments RBC (test code = RBC) 3.91 4.20-5.40 [facility] StephenvilleAoevxpkCRMONYSGTX4920-62-00 12:13:00 Test Item Value Reference Range Interpretation Comments Hct (test code = Hct) 35.9 36.0-48.0 [facility] StephenvilleQcjowjsAIIKJUZMFD1407-63-45 12:13:00 Test Item Value Reference Range Interpretation Comments Hgb (test code = Hgb) 12.3 12.0-16.0 [facility] StephenvilleYbmlmsqPTCIUSEYZI8697-99-12 12:13:00 Test Item Value Reference Range Interpretation Comments WBC (test code = WBC) 5.1 3.7-10.4 [facility]2014-05-05 12:13:00 Test Item Value Reference Range Interpretation Comments Magnesium Lvl (test code = Magnesium 1.8 1.8-2.4 Lvl) [facility]2014-05-05 12:13:00 Test Item Value Reference Range Interpretation Comments Phosphorus (test code = Phosphorus) 2.6 2.5-4.5 [facility]2014-05-05 12:13:00 Test Item Value Reference Range Interpretation Comments Globulin (test code = Globulin) 2.8 2.0-4.0 [facility]2014-05-05 12:13:00 Test Item Value Reference Range Interpretation Comments A/G Ratio (test code = A/G Ratio) 1.2 0.7-1.6 [facility]2014-05-05 12:13:00 Test Item Value Reference Range Interpretation Comments B/C Ratio (test code = B/C Ratio) 10 6-25 [facility]2014-05-05 12:13:00 Test Item Value Reference Range Interpretation Comments AGAP (test code = AGAP) 6.9 10.0-20.0 [facility]2014-05-05 12:13:00 Test Item Value Reference Range Interpretation Comments eGFR (test code = eGFR) 101 [facility]2014-05-05 12:13:00 Test Item Value Reference Range Interpretation Comments Glucose Lvl (test code = Glucose Lvl) 84 70-99 [facility]2014-05-05 12:13:00 Test Item Value Reference Range Interpretation Comments Potassium Lvl (test code = Potassium 3.9 3.5-5.1 Lvl) [facility]2014-05-05 12:13:00 Test Item Value Reference Range Interpretation Comments Sodium Lvl (test code = Sodium Lvl) 141 135-145 [facility]2014-05-05 12:13:00 Test Item Value Reference Range Interpretation Comments Creatinine Lvl (test code = Creatinine 0.7 0.5-1.4 Lvl) [facility]2014-05-05 12:13:00 Test Item Value Reference Range Interpretation Comments BUN (test code = BUN) 7 7-22 [facility]2014-05-05 12:13:00 Test Item Value Reference Range Interpretation Comments Bili Total (test code = Bili Total) 0.3 0.2-1.3 [facility]2014-05-05 12:13:00 Test Item Value Reference Range Interpretation Comments Alk Phos (test code = Alk Phos) 71 39-136 [facility]2014-05-05 12:13:00 Test Item Value Reference Range Interpretation Comments AST (test code = AST) 21 See_Comment [Auto mated message] The system which ge nerated this result transmit ulysses reference range : <=37. The reference range was not used to interpr et this result as sharron l/abnormal. [place] 538464-05-05 12:13:00 Test Item Value Reference Range Interpretation Comments ALT (test code = ALT) 20 See_Comment [Auto mated message] The system which ge nerated this result transmit ulysses reference range : <=65. The reference range was not used to interpr et this result as sharron l/abnormal. [facility]2014-05-05 12:13:00 Test Item Value Reference Range Interpretation Comments Total Protein (test code = Total 6.1 6.4-8.4 Protein) [facility]2014-05-05 12:13:00 Test Item Value Reference Range Interpretation Comments CO2 (test code = CO2) 33 24-32 [facility]2014-05-05 12:13:00 Test Item Value Reference Range Interpretation Comments Albumin Lvl (test code = Albumin Lvl) 3.3 3.5-5.0 [facility]2014-05-05 12:13:00 Test Item Value Reference Range Interpretation Comments Calcium Lvl (test code = Calcium Lvl) 8.4 8.5-10.5 [facility]2014-05-05 12:13:00 Test Item Value Reference Range Interpretation Comments Chloride Lvl (test code = Chloride Lvl) 105 95-109 [facility] StephenvilleQacfmwpTCUBMTUFQX2761-38-36 12:13:00 Test Item Value Reference Range Interpretation Comments Basophils # (test code 0.0 See_Comment [Aut omated message] The = Basophils #) system which generated this result tra nsmitted reference range : <=0.2. The reference r jamaica was not used to int erpret this result as normal/abnormal . [facility] StephenvilleJcmqsppSLROAEBUWT1303-27-80 12:13:00 Test Item Value Reference Range Interpretation Comments Segs (test code = Segs) 63.5 45.0-75.0 [facility] StephenvilleEmfzgjbRKVHAXWEYQ4646-16-69 12:13:00 Test Item Value Reference Range Interpretation Comments Monocytes # (test code 0.3 See_Comment [Aut omated message] The = Monocytes #) system which generated this result tra nsmitted reference range : <=0.8. The reference r jamaica was not used to int erpret this result as normal/abnormal . [facility] StephenvilleLhtppzgGYVUQPVLTV7314-65-16 12:13:00 Test Item Value Reference Range Interpretation Comments Basophils (test code = 0.2 See_Comment [Aut omated message] The Basophils) system which ge nerated this result tra nsmitted reference range : <=1.0. The reference r jamaica was not used to int erpret this result as normal/abnormal . [facility] StephenvilleGkhnmoiODBKQCYXGC3093-34-89 12:13:00 Test Item Value Reference Range Interpretation Comments Lymphocytes # (test code = Lymphocytes 1.5 1.0-5.5 #) [facility] StephenvilleOdsjmzuSLWSWQYVNP4084-34-15 12:13:00 Test Item Value Reference Range Interpretation Comments Segs-Bands # (test code = Segs-Bands #) 3.3 1.5-8.1 [facility] StephenvilleMlvvpxiXQBVCUNXFG6615-16-61 12:13:00 Test Item Value Reference Range Interpretation Comments Eosinophils # (test code 0.1 See_Comment [A utomated message] The = Eosinophils #) system whic h generated this result tra nsmitted reference range : <=0.5. The reference r jamaica was not used to int erpret this result as normal/abnormal . [facility] StephenvilleMxyrsufXDDXTLZWHC6596-29-92 12:13:00 Test Item Value Reference Range Interpretation Comments Lymphocytes (test code = Lymphocytes) 28.9 20.0-40.0 [facility] StephenvilleCdusgkvXTQEWBCOLO5009-69-00 12:13:00 Test Item Value Reference Range Interpretation Comments Monocytes (test code = Monocytes) 6.2 2.0-12.0 [facility] StephenvilleKydfjuhTOELITKWPE9352-30-78 12:13:00 Test Item Value Reference Range Interpretation Comments Eosinophils (test code = 1.2 See_Comment [A utomated message] The Eosinophils) system which ge nerated this result tra nsmitted reference range : <=4.0. The reference r jamaica was not used to int erpret this result as normal/abnormal . [facility] StephenvilleRtoqltgLQOYDCKFUF5205-37-10 12:13:00 Test Item Value Reference Range Interpretation Comments MCHC (test code = MCHC) 34.3 32.0-36.0 [facility] StephenvilleRjgslgjLYCHWOVNQV4951-05-34 12:13:00 Test Item Value Reference Range Interpretation Comments RDW (test code = RDW) 16.5 11.5-14.5 [facility] StephenvilleBqjnrqyQCJLKWLJPH7229-58-21 12:13:00 Test Item Value Reference Range Interpretation Comments MCH (test code = MCH) 31.5 pg 27.0-31.0 [facility] StephenvilleGrnruuwOAKYLQLYMY6200-04-76 12:13:00 Test Item Value Reference Range Interpretation Comments MCV (test code = MCV) 91.9 81.0-99.0 [facility] StephenvilleVwhksnsNAJDSOXKVT2389-90-57 12:13:00 Test Item Value Reference Range Interpretation Comments Platelet (test code = Platelet) 177 133-450 [facility] StephenvilleQdhtcwoPGTVGPZAMQ4913-03-03 12:13:00 Test Item Value Reference Range Interpretation Comments MPV (test code = MPV) 7.9 7.4-10.4 [facility] StephenvilleUxsszmdXYSWGKVUNR4136-06-49 12:13:00 Test Item Value Reference Range Interpretation Comments RBC (test code = RBC) 3.91 4.20-5.40 [facility] StephenvilleXeganjiPPOGQBUSTC9827-09-66 12:13:00 Test Item Value Reference Range Interpretation Comments Hct (test code = Hct) 35.9 36.0-48.0 [facility] StephenvilleOnjvmdnKXKUVTYKIM7057-06-19 12:13:00 Test Item Value Reference Range Interpretation Comments Hgb (test code = Hgb) 12.3 12.0-16.0 [facility] StephenvilleQlsvlvhLWUWIZGQSZ7553-89-44 12:13:00 Test Item Value Reference Range Interpretation Comments WBC (test code = WBC) 5.1 3.7-10.4 [facility]2014-05-05 12:13:00 Test Item Value Reference Range Interpretation Comments Magnesium Lvl (test code = Magnesium 1.8 1.8-2.4 Lvl) [facility]2014-05-05 12:13:00 Test Item Value Reference Range Interpretation Comments Phosphorus (test code = Phosphorus) 2.6 2.5-4.5 [facility]2014-05-05 12:13:00 Test Item Value Reference Range Interpretation Comments Globulin (test code = Globulin) 2.8 2.0-4.0 [facility]2014-05-05 12:13:00 Test Item Value Reference Range Interpretation Comments A/G Ratio (test code = A/G Ratio) 1.2 0.7-1.6 [facility]2014-05-05 12:13:00 Test Item Value Reference Range Interpretation Comments B/C Ratio (test code = B/C Ratio) 10 6-25 [facility]2014-05-05 12:13:00 Test Item Value Reference Range Interpretation Comments AGAP (test code = AGAP) 6.9 10.0-20.0 [facility]2014-05-05 12:13:00 Test Item Value Reference Range Interpretation Comments eGFR (test code = eGFR) 101 [facility]2014-05-05 12:13:00 Test Item Value Reference Range Interpretation Comments Glucose Lvl (test code = Glucose Lvl) 84 70-99 [place] 538464-05-05 12:13:00 Test Item Value Reference Range Interpretation Comments Potassium Lvl (test code = Potassium 3.9 3.5-5.1 Lvl) [facility]2014-05-05 12:13:00 Test Item Value Reference Range Interpretation Comments Sodium Lvl (test code = Sodium Lvl) 141 135-145 [place] 538464-05-05 12:13:00 Test Item Value Reference Range Interpretation Comments Creatinine Lvl (test code = Creatinine 0.7 0.5-1.4 Lvl) [place] 538464-05-05 12:13:00 Test Item Value Reference Range Interpretation Comments BUN (test code = BUN) 7 7-22 [place] [address]-05-05 12:13:00 Test Item Value Reference Range Interpretation Comments Bili Total (test code = Bili Total) 0.3 0.2-1.3 [place] 538464-05-05 12:13:00 Test Item Value Reference Range Interpretation Comments Alk Phos (test code = Alk Phos) 71 39-136 [place] 538464-05-05 12:13:00 Test Item Value Reference Range Interpretation Comments AST (test code = AST) 21 See_Comment [Auto mated message] The system which ge nerated this result transmit ulysses reference range : <=37. The reference range was not used to interpr et this result as sharron l/abnormal. [place] 538464-05-05 12:13:00 Test Item Value Reference Range Interpretation Comments ALT (test code = ALT) 20 See_Comment [Auto mated message] The system which ge nerated this result transmit ulysses reference range : <=65. The reference range was not used to interpr et this result as sharron l/abnormal. [place] 538464-05-05 12:13:00 Test Item Value Reference Range Interpretation Comments Total Protein (test code = Total 6.1 6.4-8.4 Protein) [facility]2014-05-05 12:13:00 Test Item Value Reference Range Interpretation Comments CO2 (test code = CO2) 33 24-32 [place] 538464-05-05 12:13:00 Test Item Value Reference Range Interpretation Comments Albumin Lvl (test code = Albumin Lvl) 3.3 3.5-5.0 [facility]2014-05-05 12:13:00 Test Item Value Reference Range Interpretation Comments Calcium Lvl (test code = Calcium Lvl) 8.4 8.5-10.5 [facility]2014-05-05 12:13:00 Test Item Value Reference Range Interpretation Comments Chloride Lvl (test code = Chloride Lvl) 105 95-109 [facility] StephenvilleTmcrspaPIETFFVLCL1627-03-55 12:13:00 Test Item Value Reference Range Interpretation Comments Basophils # (test code 0.0 See_Comment [Aut omated message] The = Basophils #) system which generated this result tra nsmitted reference range : <=0.2. The reference r jamaica was not used to int erpret this result as normal/abnormal . [facility] StephenvilleKwitzvbQJMECHMHPW2086-61-52 12:13:00 Test Item Value Reference Range Interpretation Comments Segs (test code = Segs) 63.5 45.0-75.0 [facility] StephenvilleOohetkwHRXCOTWAWO9463-83-84 12:13:00 Test Item Value Reference Range Interpretation Comments Monocytes # (test code 0.3 See_Comment [Aut omated message] The = Monocytes #) system which generated this result tra nsmitted reference range : <=0.8. The reference r jamaica was not used to int erpret this result as normal/abnormal . [facility] StephenvillePlirmzrQEPWHUIYHF4018-62-27 12:13:00 Test Item Value Reference Range Interpretation Comments Basophils (test code = 0.2 See_Comment [Aut omated message] The Basophils) system which ge nerated this result tra nsmitted reference range : <=1.0. The reference r jamaica was not used to int erpret this result as normal/abnormal . [facility] StephenvilleSsneqlsMRDFZBZTND1721-68-94 12:13:00 Test Item Value Reference Range Interpretation Comments Lymphocytes # (test code = Lymphocytes 1.5 1.0-5.5 #) [facility] StephenvilleLrqglgtWNMBSEAYOZ9509-04-30 12:13:00 Test Item Value Reference Range Interpretation Comments Segs-Bands # (test code = Segs-Bands #) 3.3 1.5-8.1 [facility] StephenvilleAsqdjedTBNNMUFWCG6272-65-88 12:13:00 Test Item Value Reference Range Interpretation Comments Eosinophils # (test code 0.1 See_Comment [A utomated message] The = Eosinophils #) system whic h generated this result tra nsmitted reference range : <=0.5. The reference r jamaica was not used to int erpret this result as normal/abnormal . [facility] StephenvillePizetilTVPUTHDHJS7755-15-01 12:13:00 Test Item Value Reference Range Interpretation Comments Lymphocytes (test code = Lymphocytes) 28.9 20.0-40.0 [facility] StephenvilleXkbtfbsADXUZLWSCP4510-14-19 12:13:00 Test Item Value Reference Range Interpretation Comments Monocytes (test code = Monocytes) 6.2 2.0-12.0 [facility] StephenvilleGekjxidXNXXEHBWCP3963-24-70 12:13:00 Test Item Value Reference Range Interpretation Comments Eosinophils (test code = 1.2 See_Comment [A utomated message] The Eosinophils) system which ge nerated this result tra nsmitted reference range : <=4.0. The reference r jamaica was not used to int erpret this result as normal/abnormal . [facility] StephenvilleKghpdfvLJNSLOAZEU7803-90-68 12:13:00 Test Item Value Reference Range Interpretation Comments MCHC (test code = MCHC) 34.3 32.0-36.0 [facility] StephenvilleOnebsdyYUCMOVDCVQ6031-26-02 12:13:00 Test Item Value Reference Range Interpretation Comments RDW (test code = RDW) 16.5 11.5-14.5 [facility] StephenvilleXvysmhuGGMSDGLALU4370-44-99 12:13:00 Test Item Value Reference Range Interpretation Comments MCH (test code = MCH) 31.5 pg 27.0-31.0 [facility] StephenvilleXzxsxuxMMSSLTUNLY9502-75-93 12:13:00 Test Item Value Reference Range Interpretation Comments MCV (test code = MCV) 91.9 81.0-99.0 [facility] StephenvilleHdrjhlrSWWXTFFWSH7861-16-96 12:13:00 Test Item Value Reference Range Interpretation Comments Platelet (test code = Platelet) 177 133-450 [facility] StephenvilleMulslpjPOHZMYNPEM0314-51-50 12:13:00 Test Item Value Reference Range Interpretation Comments MPV (test code = MPV) 7.9 7.4-10.4 [facility] StephenvilleXocwfxvCHPTMTMAZI4370-68-32 12:13:00 Test Item Value Reference Range Interpretation Comments RBC (test code = RBC) 3.91 4.20-5.40 [facility] StephenvilleGeikarbNVLJOPGMMX6401-50-87 12:13:00 Test Item Value Reference Range Interpretation Comments Hct (test code = Hct) 35.9 36.0-48.0 [facility] StephenvilleJmbkwxaYDLAHHZIVS3524-87-94 12:13:00 Test Item Value Reference Range Interpretation Comments Hgb (test code = Hgb) 12.3 12.0-16.0 [facility] StephenvilleIckfpqhOXPWTIGAUG6018-02-95 12:13:00 Test Item Value Reference Range Interpretation Comments WBC (test code = WBC) 5.1 3.7-10.4 [facility] Notes Date/Time Note Provider Source 2021 17:23:00-00:00 [id number] [facility] [id number] [place] [id number] PATIENT NAME: RO MAYNARD ADMIT DATE: 1 ACCOUNT NO: [id number] ROOM NO: [facility] AGE: 56 REPORT TYPE: CONSULTATION SEX: F ADMITTING PHYSICIAN: Jaiden Antunez MD ATTENDING PHYSICIAN: Shadi Carcamo MD CONSULTATION DATE: CONSULTING PHYSICIAN: Dawson Ramírez MD ATTENDING PHYSICIAN: Shadi Carcamo MD. REASON FOR CONSULTATION: Intractable nausea, vom iting, abdominal pain, epigastric and right upper quadrant. HISTORY OF PRESENT ILLNESS: The patient is a 56-year-old woman who has been to [facility] multiple times for similar sympt oms [...] we will try to obtain them from [employer] and plan for treatment for hepatitis C, I strong ly recommended to avoid marijuana and alcohol at this time. The patient is cleared to be discharged from GI after a small bowel follow through if no acute pathology like an obstruction is found. We will continue workup as an outpatient. WT: CON:L.BRENNA/RENETTA/NTS Conf#: [id number]/DID#: [id number] (ADDENDUM) Dictated By: Dawson Ramírez MD WT: CON:L.BRENNA/RENETTA/SAMUEL Conf#: [id number]/DID#: [id number] Authenticated by Dawson Ramírez MD On 01:50:51 PM at 1351 PATIENT NAME: RO MAYNARD 9001 2021 10:28:00-00:00 [facility] Hospitalist Progress Note REPORT#:[id number] REPORT STATUS: Signed DATE:02/26/21 TIME:1028 PATIENT: RO MAYNARD UNIT #: [id number] ROOM/BED: [place] [address] : 63 AGE: 56 SEX: F ATTEND: Xiomara Antunez MD ADM AUTHOR: Shadi Carcamo MD * ALL edits or amendments must be made on the [employer] document * Subjective Chief Complaint: No acute [...] 0041 98.2 56 14 104/67 79.2 93 02/251 98.4 59 18 139/79 99.3 89 Room [...] % (Auto) (20.5 - 51.1 %) 28.9 [place] % (Auto) (1.7 - 9.3 %) 5.4 Eos % (Auto) (0.0 - 6.0 %) 0.3 Baso % (Auto) (0.0 - 2.0 %) 0.3 Neut # (Auto) (1.8 - 7.6 K/mm3) 2.5 Lymph # (Auto) (0.6 - 3.2 K/mm3) 1.1 [place] # (Auto) (0.3 - 1.1 K/mm3) 0.2 [...] the ER will follow up with kali hem Meanwhile continue with PPI clear liquid [...] Carcamo MD on at 1533 RPT #: [id number] END OF REPORT 2021-02-25 17:16:00-00:00 [facility] ([facility]) Hospitalist History Physical REPORT#:[id number] REPORT STATUS: Signed DATE:02/25/21 TIME:1715 PATIENT: RO MAYNARD UNIT #: [id number] ROOM/BED: [place] [address] : 63 AGE: 55 SEX: F ATTEND: Xiomara Antunez MD ADM AUTHOR: Jaiden Antunez MD * ALL edits or amendments must be made on the [employer]/computer document * History of Present Illness HPI [...] Crohn's disease diagnosed 15 years ago in [place] but for the pa st 4 years she has not been able to get her treated since she moved to [place] She also has rheumatoid arthritis for which [...] Pulse Resp B/P B/P Mean Pulse Ox FiO 2 02/25 36.5 72 18 130/69 89 100 Last Documented: Result Date Time Pulse Ox 100 02/25 1304 B/P 130/69 / 1304 B/P Mean 89 / 1304 O2 Delivery Room air / 1304 Temp 36.5 / 1304 Pulse 72 [...] % (Auto) (20.5 - 51.1 %) 33.6 [place] % (Auto) (1.7 - 9.3 %) 7.4 Eos % (Auto) (0.0 - 6.0 %) 0.8 Baso % (Auto) (0.0 - 2.0 %) 0.2 Neut # (Auto) (1.8 - 7.6 K/mm3) 3.1 Lymph # (Auto) (0.6 - 3.2 K/mm3) 1.8 [place] # (Auto) (0.3 - 1.1 K/mm3) 0.4 [...] - 7.0 pH UNITS) 7.0 Ur Specific [place] (1.005 - 1.030 SG) <=1.005 Urine Protein [...] positive Extremities no pedal edema pulses palpable 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 x3 moving all 4 extremities [...] Antunez MD on at 1725 RPT #: [id number] END OF REPORT 2021-02-25 13:33:00-00:00 [facility] ([facility]) EMERGENCY PROVIDER REPORT REPORT#:[id number] REPORT STATUS: Signed DATE:02/25/21 TIME:1333 PATIENT: RO MAYNARD UNIT #: [id number] ROOM/BED: [place] [address] : 63 AGE: 55 SEX: F PCP PHYS: Willian Escalante MD SERVICE AUTHOR: Bhavna Mulligan * ALL edits or amendments must be made on the el [employer]/computer document * HPI-Abd Pain F 40 and Over General Initial Greet Date/Time 02/25/21 1309 Presentation Chief Complaint Abdominal pain Sudden in Onset? No Free Text HPI Notes Free Text HPI Notes 55-year-old female past [facility] history of rheumatoid arthritis, Crohn's disease , hepatitis C status post hy sterectomy, appendectomy, and bladder sling surgery reports to ED complaining of right-sided abdominal pain for the past week which is getting worse she says it now radiates to her periumbilical area. She has associated nausea, vomiting, and diarrhea. She w as seen and evaluated at [facility] yesterday where s he had an ultrasound and a CT. Patient states there were no gallstones but does not note any further particulars on the results. She followed up with her PCP, Dr John Escalante, today in clinic who advised her to come to [facility] ER for further work-up and asked the ED physician to call Dr. Ramirez home Dr. Escalante has already spoken with, for poss chandrika SAHU scan. Risk-Abd Pain F 40 and Over [...] 72 07/ 1304 Resp 18 / 1304 Review of Vital Signs Reviewed Focused [...] % (Auto) (20.5 - 51.1 %) 33.6 [place] % (Auto) (1.7 - 9.3 %) 7.4 Eos % (Auto) (0.0 - 6.0 %) 0.8 Baso % (Auto) (0.0 - 2.0 %) 0.2 Neut # (Auto) (1.8 - 7.6 K/mm3) 3.1 Lymph # (Auto) (0.6 - 3.2 K/mm3) 1.8 [place] # (Auto) (0.3 - 1.1 K/mm3) 0.4 [...] - 7.0 pH UNITS) 7.0 Ur Specific [place] (1.005 - 1.030 SG) <=1.005 Urine Protein [...] the ED with patient and/or family and [facility] was updated on admission of code status [...] Consultation Consultation Referral/Consult Name Dawson Ramírez MD Assistant Librarian Called Gastroenterology Requested Call Time 1448 Requested Call Date 02/25/21 Call Returned Call returned Call Returned Time 1505 Call Returned Date 02/25/21 Assistant Librarian Will see patient, Agrees with plan Free [...] )( Admission Accepts Yes )( Accepted Time 1531 )( Accepted Date 02/25/21 Call Information will [...] Mulligan on 09/17 at 1536 RPT #: [id number] END OF REPORT 2021-02-25 13:33:00-00:00 [facility] ([facility]) EMERGENCY PROVIDER REPORT REPORT#:[id number] REPORT STATUS: Signed DATE:02/25/21 TIME:1332 PATIENT: RO MAYNARD UNIT #: [id number] ROOM/BED: [place] [id number] : [birth year] AGE: 55 SEX: F PCP [...] Free Text HPI Notes 55-year-old female past [facility] history of rheumatoid arthritis, Crohn's disease , hepatitis C status post hy sterectomy, appendectomy, and bladder sling surgery reports to ED complaining of right-sided abdominal pain for the past week which is getting worse she says it now radiates to her periumbilical area. She has associated nausea, vomiting, and diarrhea. She w as seen and evaluated at [facility] yesterday where s he had an ultrasound and a CT. Patient states there were no gallstones but does not note any further particulars on the results. She followed up with her PCP, Dr John Escalante, today in clinic who advised her to come to [facility] ER for further work-up and [...] % (Auto) (20.5 - 51.1 %) 33.6 [place] % (Auto) (1.7 - 9.3 %) 7.4 Eos % (Auto) (0.0 - 6.0 %) 0.8 Baso % (Auto) (0.0 - 2.0 %) 0.2 Neut # (Auto) (1.8 - 7.6 K/mm3) 3.1 Lymph # (Auto) (0.6 - 3.2 K/mm3) 1.8 [place] # (Auto) (0.3 - 1.1 K/mm3) 0.4 [...] - 7.0 pH UNITS) 7.0 Ur Specific [place] (1.005 - 1.030 SG) <=1.005 Urine Protein [...] the ED [facility] and[facility] was updated on admission of code [...] Consultation Consultation Referral/Consult Name Dawson Ramírez MD Assistant Librarian Called Gastroenterology Requested Call Time 1448 Requested Call Date 02/25/21 Call Returned Call returned Call Returned Time 1505 Call Returned Date 02/25/21 Assistant Librarian Will see patient, Agrees with plan Free [...] over this patient's care. Ezekiel Prakash 02/25/21 9839: Past Medical History - Adult Home Medications Reported Medications predniSONE 10 MG PO DAILY ATORVASTATIN (LIPITOR) 20 MG PO DAILY LOSARTAN (COZAAR) 50 MG PO DAILY PARoxetine HCL (PAXIL) 10 MG PO QAM Patient Discharge Departure Supervising Physician Note MidLv Saw Pt Alone I have reviewed the PA/[employer]'s note and plan of jaimie edwards. I was available for consultation as needed at al l times during the patient's visit in the emergency department. I agree with the clinical impression , plan and disposition. Electronically Signed by Bhavna Mulilgan on 09/17 at 1536 Electronically Signed by Ezekiel Prakash DO on at 3756 RPT #: [id number] END OF REPORT 2015-02-04 10:25:00-00:00 MRI lumbar [...] PROCEDURE: MRI CERVICAL SPINE WITHOUT CONTRAST LINDA J CARLOS Morin INDICATION: 724.4 Thoracic o [...] above. Negative for disc herniation SL: 2015-02-04 09:10:00-:00 PROCEDURE: MRI CERVICAL SPINE WITHOUT CONTRAST LINDA [...] herniation SL: 2015-01-05 10:14:32-00:00 [facility] CLINICAL HISTORY: Low back pain. COMPARISON IMAGING: [...] identified. No evidence of elbow joint effusion. [facility] Right elbow 2 views: No acut e osseous injury or arthritis identified. No joint effusion identified. IMPRESSION: 1. Unremarkable exam. 2015-01-05 10:14:-00:00 SACROILIAC JOINT [facility] CLINICAL HISTORY: Low back pain. COMPARISON IMAGING: [...] identified. No evidence of elbow joint effusion. [facility] Right elbow 2 views: No acut e osseous injury or arthritis identified. No joint effusion identified. IMPRESSION: 1. Unremarkable exam. 2015-01-05 10:14:00:00 SA[facility]ILI[facility] JOINT [facility] CLINICAL HISTORY: Low back pain. COMPARISON IMAGING: [...] identified. No evidence of elbow joint effusion. [facility] Right elbow 2 views: No acut e osseous injury or arthritis identified. No joint effusion identified. IMPRESSION: 1. Unremarkable exam. 2015-01-05 10:14:00:00 SA[facility]ILI[facility] JOINT [facility] CLINICAL HISTORY: Low back pain. COMPARISON IMAGING: [...] identified. No evidence of elbow joint effusion. [facility] Right elbow 2 views: No acut e osseous injury or arthritis identified. No joint effusion identified. IMPRESSION: 1. Unremarkable exam. 2015-01-05 10:14:32-00:00 SA[facility]ILI[facility]INT [facility] CLINICAL HISTORY: Low back pain. COMPARISON IMAGING: [...] identified. No evidence of elbow joint effusion. [facility] Right elbow 2 views: No acut e osseous injury or arthritis identified. No joint effusion identified. IMPRESSION: 1. Unremarkable exam. 2015-01-05 10:14:32-00:00 SA[facility]ILI[facility]INT [facility] CLINICAL HISTORY: Low back pain. COMPARISON IMAGING: [...] identified. No evidence of elbow joint effusion. [facility] Right elbow 2 views: No acut e osseous injury or arthritis identified. No joint effusion identified. IMPRESSION: 1. Unremarkable exam. 2015-01-05 10:14:32-00:00 SA[facility]ILI[facility]INT [facility] CLINICAL HISTORY: Low back pain. COMPARISON IMAGING: [...] identified. No evidence of elbow joint effusion. [facility] Right elbow 2 views: No acut e osseous injury or arthritis identified. No joint effusion identified. IMPRESSION: 1. Unremarkable exam. 2015-01-05 10:14:32-00:00 SA[facility]ILI[facility] CLINICAL HISTORY: Low back pain. COMPARISON IMAGING: [...] identified. No evidence of elbow joint effusion. [facility] Right elbow 2 views: No acut e osseous injury or arthritis identified. No joint effusion identified. IMPRESSION: 1. Unremarkable exam. 2014-05-20 07:04:16-00:00 STUDY: Chest one view. [facility] COMPARISON: None HISTORY: Hypertension. FINDINGS: The lungs are clear. No dens e focal consolidation is seen. No pleural effusion or pneumothorax is seen. The heart is normal in size. The osseous structures are unremarkable. IMPRESSION: No acute cardiopulmonary process. 2014-05-20 07:04:16-00:00 STUDY: Chest one view. [facility] COMPARISON: None HISTORY: Hypertension. FINDINGS: The lungs are clear. No dens e focal consolidation is seen. No pleural effusion or pneumothorax is seen. The heart is normal in size. The osseous structures are unremarkable. IMPRESSION: No acute cardiopulmonary process. 2014-05-20 07:04:16-00:00 STUDY: Chest one view. [facility] COMPARISON: None HISTORY: Hypertension. FINDINGS: The lungs are clear. No dens e focal consolidation is seen. No pleural effusion or pneumothorax is seen. The heart is normal in size. The osseous structures are unremarkable. IMPRESSION: No acute cardiopulmonary process. 2014-05-20 07:04:16-00:00 STUDY: Chest one view. [facility] COMPARISON: None HISTORY: Hypertension. FINDINGS: The lungs are clear. No dens e focal consolidation is seen. No pleural effusion or pneumothorax is seen. The heart is normal in size. The osseous structures are unremarkable. IMPRESSION: No acute cardiopulmonary process. 2014-05-20 07:04:16-00:00 STUDY: Chest one view. [facility] COMPARISON: None HISTORY: Hypertension. FINDINGS: The lungs are clear. No dens e focal consolidation is seen. No pleural effusion or pneumothorax is seen. The heart is normal in size. The osseous structures are unremarkable. IMPRESSION: No acute cardiopulmonary process. 2014-05-20 07:04:16-00:00 STUDY: Chest one view. [facility] COMPARISON: None HISTORY: Hypertension. FINDINGS: The lungs are clear. No dens e focal consolidation is seen. No pleural effusion or pneumothorax is seen. The heart is normal in size. The osseous structures are unremarkable. IMPRESSION: No acute cardiopulmonary process. 2014-05-20 07:04:16-00:00 STUDY: Chest one view. [facility] COMPARISON: None HISTORY: Hypertension. FINDINGS: The lungs are clear. No dens e focal consolidation is seen. No pleural effusion or pneumothorax is seen. The heart is normal in size. The osseous structures are unremarkable. IMPRESSION: No acute cardiopulmonary process. 2014-05-20 07:04:16-00:00 STUDY: Chest one view. [facility] COMPARISON: None HISTORY: Hypertension. FINDINGS: The lungs are clear. No dens e focal consolidation is seen. No pleural effusion or pneumothorax is seen. The heart is normal in size. The osseous structures are unremarkable. IMPRESSION: No acute cardiopulmonary process. 2014-01-02 09:12:00-00:00 HISTORY: Abdominal pain. [facility] Two views abdomen. Comparison 01/01/2014. Resid ual contrast within the colon unchanged from previous. No small bowel distention or obstruction identified. No fluid level or free air. There are atelectatic changes in both lung bases. SL:13 2014-01-02 09:12:00-00:00 HISTORY: Abdominal pain. [facility] Two views abdomen. Comparison 01/01/2014. Resid ual contrast within the colon unchanged from previous. No small bowel distention or obstruction identified. No fluid level or free air. There are atelectatic changes in both lung bases. SL:13 2014-01-02 09:12:00-00:00 HISTORY: Abdominal pain. [facility] Two views abdomen. Comparison 01/01/2014. Resid ual contrast within the colon unchanged from previous. No small bowel distention or obstruction identified. No fluid level or free air. There are atelectatic changes in both lung bases. SL:13 2014-01-02 09:12:00-00:00 HISTORY: Abdominal pain. [facility] Two views abdomen. Comparison 01/01/2014. Resid ual contrast within the colon unchanged from previous. No small bowel distention or obstruction identified. No fluid level or free air. There are atelectatic changes in both lung bases. SL:13 2014-01-02 09:12:00-00:00 HISTORY: Abdominal pain. [facility] Two views abdomen. Comparison 01/01/2014. Resid ual contrast within the colon unchanged from previous. No small bowel distention or obstruction identified. No fluid level or free air. There are atelectatic changes in both lung bases. SL:13 2014-01-02 09:12:00-00:00 HISTORY: Abdominal pain. [facility] Two views abdomen. Comparison 01/01/2014. Resid ual contrast within the colon unchanged from previous. No small bowel distention or obstruction identified. No fluid level or free air. There are atelectatic changes in both lung bases. SL:2014-01-02 09:12:00-00:00 HISTORY: Abdominal pain. [facility] Two views abdomen. Comparison 01/01/2014. Resid ual contrast within the colon unchanged from previous. No small bowel distention or obstruction identified. No fluid level or free air. There are atelectatic changes in both lung bases. SL:2014-01-02 09:12:00-00:00 HISTORY: Abdominal pain. [facility] Two views abdomen. Comparison 01/01/2014. Resid [...] of pneumoperitoneum. There are no other changes. [facility] SL:13 2014-01-01 08:00:00-00:00 ABDOMEN 2 VIEWS: There is no bowel distention. Contrast in the colon is seen with further transit and partial clearance since the exam on the previous day. There is no evidence of pneumoperitoneum. There are no other changes. [facility] SL:2014-01-01 08:00:00-00:00 ABDOMEN 2 VIEWS: There is no bowel distention. Contrast in the colon is seen with further transit and partial clearance since the exam on the previous day. There is no evidence of pneumoperitoneum. There are no other changes. [facility] SL:2014-01-01 08:00:00-00:00 ABDOMEN 2 VIEWS: There is no bowel distention. Contrast in the colon is seen with further transit and partial clearance since the exam on the previous day. There is no evidence of pneumoperitoneum. There are no other changes. [facility] SL:13 2014-01-01 08:00:00-00:00 ABDOMEN 2 VIEWS: There is no bowel distention. Contrast in the colon is seen with further transit and partial clearance since the exam on the previous day. There is no evidence of pneumoperitoneum. There are no other changes. [facility] SL:13 2014-01-01 08:00:00-00:00 ABDOMEN 2 VIEWS: There is no bowel distention. Contrast in the colon is seen with further transit and partial clearance since the exam on the previous day. There is no evidence of pneumoperitoneum. There are no other changes. [facility] SL:13 2014-01-01 08:00:00-00:00 ABDOMEN 2 VIEWS: There is no bowel distention. Contrast in the colon is seen with further transit and partial clearance since the exam on the previous day. There is no evidence of pneumoperitoneum. There are no other changes. [facility] SL:13 2014-01-01 08:00:00-00:00 ABDOMEN 2 VIEWS: There is no bowel distention. Contrast in the colon is seen with further transit and partial clearance since the exam on the previous day. There is no evidence of pneumoperitoneum. There are no other changes. [facility]:13
[2023-05-15] MEDS ORDERED: ACETAMINOPHEN 325 MG TABLET PO PRN (18:49)
[2023-05-15] MEDS: VANCOMYCIN 1 GM in NA CHLORIDE 0.9% 250 ML IVPB SCH ×2 (19:00→21:00)
[2023-05-15] MEDS: HYDROMORPHONE HCL 1 MG/ML INJ IV PRN (19:53)
[2023-05-15] MEDS: ENOXAPARIN 40 MG/0.4 ML SQ SCH (19:54)
[2023-05-15] MEDS ORDERED: VANCOMYCIN 1 GM in NA CHLORIDE 0.9% 250 ML IVPB ONE (20:00)
[2023-05-15 20:57] LABS: Absolute Lymphocytes (CBC) 2.2 K/uL (0.7-4.9); Hematocrit 36.9 % (36.0-45.0); Lymphocytes % 32.6 % (15.3-44.8); MCV 93.3 fL (80-100); MPV 8.6 fL (7.6-11.3); Platelets 153 thou/uL (152-406); RBC Red Blood Cell Count 3.95 M/uL (3.86-4.86)
[2023-05-15] MEDS ORDERED: POLYETHYL GLY 3350 17 GM/DOSE PO SCH (21:00)
[2023-05-15] MEDS: NACHLORIDE 0.45% 1,000 ML IV SCH (21:43)
[2023-05-15] MEDS ORDERED: POLYETHYL GLY 3350 17 GM/DOSE PO PRN (22:29)
[2023-05-15 22:34] LABS: Albumin 3.5 g/dL (3.4-5.0); Bilirubin Direct 0.1 mg/dL (0-0.2); Bilirubin Indirect, Calculated 0.3 mg/dL (0.2-0.8); Bilirubin Total 0.4 mg/dL (0.2-1.0); Magnesium 2.2 mg/dL (1.6-2.4); Phosphorus 3.5 mg/dL (2.5-4.9); Potassium 3.8 mEq/L (3.5-5.1); Protein, Total 7.5 g/dL (6.4-8.2)
[2023-05-15 22:35] LABS: Thyroid Stimulating Hormone 4.75 uIU/mL (0.358-3.740)
[2023-05-15 23:21] VITALS: BMI 25.4
[2023-05-16] MEDS: DIPHENHYDRAMINE 25 MG TAB/CAP PO PRN (00:11)
[2023-05-16] MEDS: HYDROMORPHONE HCL 1 MG/ML INJ IV PRN ×6 (04:03→21:50)
[2023-05-16] MEDS: ENOXAPARIN 40 MG/0.4 ML SQ SCH (09:29)
[2023-05-16] MEDS: ONDANSETRON 4 MG (ODT) TAB PO PRN (09:30)
[2023-05-16] MEDS: VANCOMYCIN 1.25 GM in NA CHLORIDE 0.9% 250 ML IVPB SCH (12:03)
--- NOTE | 2023-05-16 12:06 | RAD REPORT ---
EXAM DESCRIPTION: RAD - Chest Pa And Lat (2 Views) - 05/16/2023 10:02 am CLINICAL HISTORY: mass vs abscess COMPARISON: Chest Single View dated 03/28/2023; Chest Single View dated 01/22/2023; Chest Single View d ated 10/04/2022; Chest Single View dated 05/12/2022; Chest Abdomen Pelvis W Cont dated 03/30/2023 TECHNIQUE: PA and lateral views of the chest were obtained. FINDINGS: The lungs are clear. Heart size is normal and central vasculature is within normal limits. No pleural effusion or pneumothorax seen. No acute bony finding noted. IMPRESSION: No acute cardiopulmonary process.
--- NOTE | 2023-05-16 12:11 | RAD REPORT ---
EXAM DESCRIPTION: CT - Abdomen Pelvis W Contrast - 05/16/2023 10:01 am CLINICAL HISTORY: mass vs abscess COMPARISON: Abdomen Pelvis W Contrast dated 04/01/2023; Abdomen Pelvis W Contrast dated 01/17/2023; Abdomen Pelvis W Contrast dated 08/19/2021; Abdomen Pelvis W Contrast dated 08/14/2021 TECHNIQUE: Thin cut axial CT imaging of the abdomen and pelvis was performed following intravenous a dministration of 100 mL Isovue 300. Multiplanar reformats were generated and reviewed. All CT scans are performed using dose optimization technique as appropriate and may include automated exposure control or mA/KV adjustment according to patient size. FINDINGS: No suspicious findings in the lung bases. The liver, spleen, adrenal glands, and pancreas show no suspicious findings. Gallbladder and biliary tree are also without suspicious finding. Symmetric renal function is seen with no hydronephrosis or suspicious renal mass. No dilated bowel loops or bowel wall thickening. No free air, free fluid or inflammatory stranding. N o hernia, mass or bulky lymphadenopathy. The urinary bladder is without significant finding. No suspicious bony findings. Chronic appearing vertebral compression deformity at L2, with evidence o f prior vertebral augmentation. Ovoid soft tissue masslike expansion along the left lower chest wall, measuring 7.9 x 3.0 cm in great est axial dimensions, with some streaky hypoattenuating internal features. Adjacent and overlying sub cutaneous edema, as well as some underlying edema extending deep to the level of the ribs and overlyi ng the left anterior chest wall muscles. The left anterior chest wall muscles are not edematous. No d eeper fluid collections IMPRESSION: Findings suggestive of left lower chest wall phlegmon or early abscess formation, withou t intra-abdominal complications. Please see details above. No acute intra-abdominal process.
[2023-05-16] MEDS ORDERED: VANCOMYCIN 1 GM in NA CHLORIDE 0.9% 250 ML IVPB SCH (14:00)
[2023-05-16] MEDS ORDERED: Ringers Lactate 1,000 ML IV ONE (15:12)
[2023-05-16] MEDS ORDERED: propofoL 200 MG/20 ML VIAL IV ONE (15:21)
[2023-05-16] MEDS ORDERED: FENTANYL CITR 100 MCG/2 ML ONE (15:21)
[2023-05-16] MEDS ORDERED: LIDOCAINE 2% MPF 5 ML VIAL ONE (15:21)
[2023-05-16] MEDS ORDERED: MIDAZOLAM HCL 2 MG/2 ML INJ ONE (15:21)
[2023-05-16] MEDS ORDERED: ONDANSETRON 4 MG/2 ML VIAL ONE (15:24)
--- NOTE | 2023-05-16 16:09 | P.OP ---
Preoperative diagnosis: LEFT Chest wall Phlegmon / Mass Postoperative diagnosis: LEFT Chest wall Phlegmon / Mass Primary procedure: Excisional Biopsy of LEFT Chest Wall Mass Anesthesia: GETA Estimated blood loss: <20cc Specimen: LEFT Chest wall tissue Findings: Thickened Tissue abuting the left chest wall Complications: None Transferred to: Recovery Room Condition: Good
[2023-05-16] MEDS ORDERED: HYDROCODONE/APAP 5/325 MG TAB PO PRN (16:14)
[2023-05-16] MEDS: HYDROMORPHONE HCL 1 MG/ML INJ ONE ×2 (16:25→16:30)
--- NOTE | 2023-05-16 17:55 | OP ---
Date of Procedure: 05/16/2023 Surgeon: Jermaine Victoria MD, Preoperative Diagnosis: Left chest wall phlegmon/mass. Postoperative Diagnosis: Left chest wall phlegmon/mass. Procedures Performed: 1.Excisional biopsy left chest wall mass. 2.Debridement of left chest wall tissue. Anesthesia: General endotracheal. Estimated Blood Loss: Less than 20 cc. Specimen: Left chest wall tissue, debridement tissue. Findings: Thickened tissue abutting the left chest wall, which had edematous appearance to it. No o bvious infection was appreciated, but the area was quite edematous. Complications: None. Disposition: The patient was transferred to the recovery room in good condition. Procedure In Detail: After informed consent was obtained, the patient was brought to the operating r oom, prepped and draped in the usual sterile fashion after adequate anesthesia was achieved. I made an elliptical incision around the previous scar on the left chest wall where the patient had a draina ge before in the past down to the subcutaneous tissues using 10 blade. Ultimately, I dissected down circumferentially around using electrocautery down to subcutaneous fat to approach a scar type mass o f the chest wall. It had a somewhat scar like appearance. As such, I dissected circumferentially ar ound. There was some leaching of fluid like phlegmonous material and general edema to the tissues. No obvious infections were appreciated at this area, however. I then removed several tissue specimen s and sent them off for biopsy specimen of the actual chest wall mass and sent off for pathologic exa mination. The area was copiously irrigated and electrocautery was used to achieve hemostasis. At th is point, I then closed the incision using interrupted 3-0 nylon sutures and a sterile dressing place d over top. The patient tolerated the procedure well without evidence of complication and transferre d to PACU in good condition. All counts were correct at the end of the case. TK/MODL Voice ID: [id number] Report ID: [id number]
--- NOTE | 2023-05-16 21:21 | P.PN ---
Subjective Date of Service: 05/16/23 Chief Complaint: SAME PAIN AND SWELLING Subjective: No C/O voiced I SAW HER BEFORE SURGERY TODAY. SAME CONDITION. DR. BERNARD DID SURGERY. DETAILS PENDING. I SENT HIM MESSAGE SHE MAY GO HOME IN AM. Review of Systems 10-point ROS is otherwise unremarkable General: Weakness Physical Examination - Vital Signs Temperature: 96.1 F Blood Pressure: 126/65 Pulse: 77 Respirations: 16 Pulse Ox (%): 94 - Physical Exam General: Oriented x3, Moderate distress HEENT: Atraumatic, PERRLA, EOMI Neck: Supple, JVD not distended Respiratory: Clear to auscultation bilaterally, Normal air movement Cardiovascular: Regular rate/rhythm, Normal S1 S2 Gastrointestinal: Normal bowel sounds, No tenderness Musculoskeletal: No tenderness Integumentary: No rashes, Other (L UPPER ABDOMEN MASS BENEATH SCAR.) Neurological: Normal speech, Normal tone, Normal affect Lymphatics: No axilla or inguinal lymphadenopathy - Studies Laboratory Data (last 24 hrs) 05/15/23 05/15/23 05/15/23 20:23 20:23 20:23 WBC 6.60 Hgb 13.2 Hct 36.9 Plt Count 153 APTT 42.3 H Sodium 137 Potassium 3.8 BUN 7 Creatinine 0.65 Glucose 118 H Phosphorus 3.5 Magnesium 2.2 Total Bilirubin 0.4 AST 20 ALT 26 Alkaline Phosphatase 119 H Medications List Reviewed: Yes Assessment And Plan - Current Problems (Diagnosis) (1) Abscess of abdominal wall Current Visit: Yes Status: Acute Plan: I AM NOT SURE IF THIS IS ABSCESS ALONE OR THERE IS UNDERLYING MASS I CALLED DR. BERNARD TO DISCUSS.
[2023-05-16] MEDS: NICOTINE 14 MG/PAT TD SCH (21:50)
[2023-05-17] MEDS: DIPHENHYDRAMINE 25 MG TAB/CAP PO PRN (00:35)
[2023-05-17 01:14] VITALS: O2SAT 94
[2023-05-17] MEDS: HYDROMORPHONE HCL 1 MG/ML INJ IV PRN ×4 (02:55→13:04)
[2023-05-17 04:23] LABS: Potassium 4.1 mEq/L (3.5-5.1)
[2023-05-17] MEDS: NACHLORIDE 0.45% 1,000 ML IV SCH (05:20)
[2023-05-17] MEDS: VANCOMYCIN 1.25 GM in NA CHLORIDE 0.9% 250 ML IVPB SCH (05:35)
[2023-05-17] MEDS: NICOTINE 14 MG/PAT TD SCH (07:31)
[2023-05-17] MEDS: ENOXAPARIN 40 MG/0.4 ML SQ SCH (07:31)
[2023-05-17] MEDS ORDERED: INFLUENZA VACCINE (for 6+ mo) 0.5 ML DOSE IMVAC ONE (08:00)
[2023-05-17] MEDS: ONDANSETRON 4 MG (ODT) TAB PO PRN (10:07)
[2023-05-17 12:25] VITALS: BP 133/67; TEMP 97
[2023-05-17] MEDS ORDERED: VANCOMYCIN 1.25 GM in NA CHLORIDE 0.9% 250 ML IVPB SCH (18:00)
--- NOTE | 2023-05-17 21:29 | P.DS ---
Admission Date: 05/15/23 Discharge Date: 05/17/23 Disposition: DC HOME/HOME HEALTH CARE Discharge Condition: FAIR Reason for Admission: SAME PAIN AND SWELLING - Problems (1) Abscess of abdominal wall Status: Acute Hospital Course: L ABDOMEN WALL MASS. THIS HAPPENED OVER LAST MONTH AND IT GREW FROM DIFFUSE TENDERNESS TO MASS ABOUT 7 CM-5 CM THAT IS DIFFUSE AND PAINFUL BENEATH THE PREVIOUS SCAR OF PLEURAL SURGERY OF SOMEKIND. I CALLED IN DR. BERNARD WHO PERFORMED EXCISION BIOPSY. SHE IS DISCHARGED IN STABLE CONDITION. Vital Signs/Physical Exam: Temp Pulse Resp BP Pulse Ox 97 F 62 19 133/67 95 05/17/23 12:00 05/17/23 12:00 05/17/23 12:00 05/17/23 12:00 05/17/23 12:00 Laboratory Data at Discharge: WBC 6.60 thou/uL (4.3-10.9) 05/15/23 20: Hgb 13.2 g/dL (12.0-15.0) 05/15/23: Hct 36.9 % (36.0-45.0) 05/15/23 20: Plt Count 153 thou/uL (152-406) 05/15/23 20: APTT 42.3 SECONDS (24.3-36.9) H 05/15/23 20:23 Sodium 136 mEq/L (136-145) 05/17/23 03:39 Potassium 4.1 mEq/L (3.5-5.1) 05/17/23 03:39 BUN 7 mg/dL (7-18) 05/17/23 03:39 Creatinine 0.50 mg/dL (0.55-1.02) L 05/17/23 03:39 Glucose 102 mg/dL (74-106) 05/17/23 03:39 Phosphorus 3.5 mg/dL (2.5-4.9) 05/15/23 20: Magnesium 2.2 mg/dL (1.6-2.4) 05/15/23 20: Total Bilirubin 0.4 mg/dL (0.2-1.0) 05/15/23 20: AST 20 U/L (15-37) 05/15/23 20: ALT 26 U/L (13-56) 05/15/23 20:23 Alkaline Phosphatase 119 U/L (45-117) H 05/15/23 20:23 Home Medications: Citalopram [Celexa*] 40 mg PO DAILY 09/16/20 Eszopiclone [Lunesta*] 3 mg PO BEDTIME PRN 09/16/20 Metoprolol Tartrate [Lopressor*] 25 mg PO BID 09/16/20 Oxybutynin Chloride [Oxybutynin Chloride ER] 10 mg PO DAILY 09/16/20 Benzonatate [Tessalon Perle*] 100 mg PO Q8H PRN #30 cap 09/25/20 Guaifenesin/Dextromethorphan [Robitussin Cough-Chest Dm Liq] 5 ml PO Q6H PRN #1 bottle 09/25/20 Nicotine [Nicoderm*] 21 mg TD DAILY #30 patch.td24 09/25/20 levoFLOXacin [Levaquin*] 500 mg PO DAILY #7 tab 09/25/20 Amox/Clavulanate [Augmentin 875-125 Tab] 1 each PO BID #6 tab 05/17/23 New Medications: Amox/Clavulanate [Augmentin 875-125 Tab] 1 each PO BID #6 tab Followup: Kamari Escalante MD [ACTIVE - CAN ADMIT] - Jermaine Bernard MD [ACTIVE - CAN ADMIT] -
== END 2023-05-17 14:00 | disposition home health service (06) ==
LOC: 4TH 17:33
PROVIDERS: ADMIT Internal Medicine; ATTEND Internal Medicine
PROC: 0JB80ZX Excision of Abdomen Subcutaneous Tissue and Fascia, Open Approach, Diagnostic (ICD-10-PCS; 2023-05-16)
PROC: 0JB80ZZ Excision of Abdomen Subcutaneous Tissue and Fascia, Open Approach (ICD-10-PCS; principal; 2023-05-16 13:15)
DX: D21.3 Benign neoplasm of connective and other soft tissue of thorax (principal); L90.5 Scar conditions and fibrosis of skin; L03.311 Cellulitis of abdominal wall; J44.9 Chronic obstructive pulmonary disease, unspecified; I10 Essential (primary) hypertension; F41.9 Anxiety disorder, unspecified; M81.0 Age-related osteoporosis without current pathological fracture; E78.00 Pure hypercholesterolemia, unspecified
CPT/HCPCS: 11042; 11106; 87040; 85025; 80048 ×2; 36415 ×2; 83735; 84100; 80076; 88304; 88305; 85730; 84443; 80202; 84439; 82607; 82306; 74177; 71046; Q9967; G0379; Q0162 ×2; J2704; J2001; J1650 ×3; J2250; J3010; J1170 ×12; J2405; G0378 ×4; J7120; J7050 ×3

== ENCOUNTER 2023-11-29 10:41 | Emergency (ER) | payer OTHER ==
--- NOTE | 2023-11-29 11:32 | RAD REPORT ---
EXAM DESCRIPTION: CT - [id number] - 11/29/2023 11:15 am CLINICAL HISTORY: Trauma, head and neck injury. Pain;Trauma COMPARISON: No comparisons TECHNIQUE: Axial 5 mm thick images of the head were obtained. Axial 2 mm thick images of the cervical spine were obtained with sagittal and coronal reconstruction images generated and reviewed. All CT scans are performed using dose optimization technique as appropriate and may include automated exposure control or mA/KV adjustment according to patient size. FINDINGS: CT HEAD WITHOUT CONTRAST: No acute hemorrhage, hydrocephalus or extra-axial collection is identified.No areas of brain edema or midline shift. The paranasal sinuses and mastoids are clear.The calvarium is intact. CT CERVICAL SPINE WITHOUT CONTRAST: No fracture or subluxation.Complex postsurgical hardware construct is present spanning C3-7.No prever tebral soft tissues swelling is identified. Significant carotid atherosclerosis bilaterally. IMPRESSION: No acute intracranial or cervical spine findings. Complex postsurgical hardware construct spanning C3-7 appears intact. Moderate bilateral carotid atherosclerosis.
--- NOTE | 2023-11-29 12:09 | EDPHYS ---
Physician Documentation [facility] Name: Tita Elizabeth Age: 58 yrs Sex: Female : 1965 Arrival Date: 11/29/2023 Time: 10:41 Bed 10 Private MD: ABHIJEET Physician Breezy Pollard HPI: 11/28 12:00 This 58 yrs old Female presents to ER via Ambulatory with complaints of Neck lavern Injury, Fall Injury - On 11/25/23. 12:00 The patient or guardian complains of contusion, decreased range of motion, pain. The lavern symptoms are located on the neck. Onset: The symptoms/episode began/occurred 3 day(s) ago. Context: The problem was sustained at home. Associated signs and symptoms: The patient has no apparent associated signs or symptoms. The pain does not radiate. Modifying factors: The symptoms are alleviated by nothing. the symptoms are aggravated by movement, pressure. Severity of symptoms: At their worst the symptoms were mild, moderate, in the emergency department the symptoms have improved, mildly. The patient has not experienced similar symptoms in the past. Historical: - Allergies: 10:50 Sulfa (Sulfonamide Antibiotics); mb9 - Home Meds: 10:50 aspirin 81 mg Oral capsule 1 cap once [Active]; mb9 - PMHx: 10:50 Colitis; HTN; Crohn's Disease; Arthritis; mb9 - PSHx: 10:50 Appendectomy; hysterectomy; kyphoplasty; Neck surgery; Tonsillectomy; mb9 - Immunization history:: Adult Immunizations up to date. - Infectious Disease History:: Denies. - Social history:: Smoking status: Patient reports the use of cigarette tobacco products, smokes one-half pack cigarettes per day. - Family history:: not pertinent. ROS: 12:00 Constitutional: Negative for fever, chills, and weight loss, Eyes: Negative for injury, lavern pain, redness, and discharge, ENT: Negative for injury, pain, and discharge, Cardiovascular: Negative for chest pain, palpitations, and edema, Respiratory: Negative for shortness of breath, cough, wheezing, and pleuritic chest pain, Abdomen/GI: Negative for abdominal pain, nausea, vomiting, diarrhea, and constipation, Back: Negative for injury and pain, : Negative for injury, bleeding, discharge, and swelling, MS/Extremity: Negative for injury and deformity, Skin: Negative for injury, rash, and discoloration, Neuro: Negative for headache, weakness, numbness, tingling, and seizure, Psych: Negative for depression, anxiety, suicide ideation, homicidal ideation, and hallucinations, Allergy/Immunology: Negative for hives, rash, and allergies, Endocrine: Negative for neck swelling, polydipsia, polyuria, polyphagia, and marked weight changes, 12:00 Neck: Positive for pain with movement, pain at rest, stiffness, Exam: 12:04 Constitutional: This is a well developed, well nourished patient who is awake, alert, lavern and in no acute distress. Head/Face: Normocephalic, atraumatic. Eyes: Pupils equal round and reactive to light, extra-ocular motions intact. Lids and lashes normal. Conjunctiva and sclera are non-icteric and not injected. Cornea within normal limits. Periorbital areas with no swelling, redness, or edema. ENT: Nares patent. No nasal discharge, no septal abnormalities noted. Tympanic membranes are normal and external auditory canals are clear. Oropharynx with no redness, swelling, or masses, exudates, or evidence of obstruction, uvula midline. Mucous membranes moist. Chest/axilla: Normal chest wall appearance and motion. Nontender with no deformity. No lesions are appreciated. Cardiovascular: Regular rate and rhythm with a normal S1 and S2. No gallops, murmurs, or rubs. Normal PMI, no JVD. No pulse deficits. Respiratory: Lungs have equal breath sounds bilaterally, clear to auscultation and percussion. No rales, rhonchi or wheezes noted. No increased work of breathing, no retractions or nasal flaring. Abdomen/GI: Soft, non-tender, with normal bowel sounds. No distension or tympany. No guarding or rebound. No evidence of tenderness throughout. Back: No spinal tenderness. No costovertebral tenderness. Full range of motion. Female : Normal external genitalia. Skin: Warm, dry with normal turgor. Normal color with no rashes, no lesions, and no evidence of cellulitis. MS/ Extremity: Pulses equal, no cyanosis. Neurovascular intact. Full, normal range of motion. Psych: Awake, alert, with orientation to person, place and time. Behavior, mood, and affect are within normal limits. 12:04 Neck: External neck: is normal, no acute changes, C-spine: appears grossly normal, no vertebral tenderness, no crepitus, no acute changes, Thyroid: appears normal, Trachea: is midline with no obvious abnormalities, no acute changes, ROM/movement: pain, that is mild, with any movement, limited range of motion, that is mild, Meningeal signs: are not present, Kernig's sign is negative, Brudzinski's sign is negative, nuchal rigidity, is not appreciated, Lymph nodes: no appreciated lymphadenopathy, Vital Signs: 10:50 BP 150 / 81; Pulse 57; Resp 18; Temp 97.8; Pulse Ox 100% ; Height 5 ft. 1 in. ; Pain mb9 8/10; 12:40 BP 134 / 94; Pulse 88; Resp 17; Temp 97.7; Pulse Ox 97% ; ap3 10:50 Pain Scale: Adult mb9 MDM: 10:53 Patient medically screened. lavern 10:54 Patient medically screened. lavern 12:03 Differential diagnosis: Cervical Disc Herniation Cervical Discogenic Pain Cervical lavern Facet Syndrome Cervical Raiculopathy Cervical Spondylosis cervical strain, Degenerative Disc Disease Flexion Teardrop Fracture fracture, Neck Abrasion Neck Contusion Osteoarthritis Spinal Cord Compression Spondylolisthesis Spondylosis subluxation, torticollis. Data reviewed: vital signs, nurses notes, radiologic studies. Consideration of Admission/Observation Escalation of care including admission/observation considered. I considered the following discharge prescriptions or medication management in the emergency department Medications were administered in the Emergency Department. See MAR. Test considered but Not performed: Labs: NO LABS. 11/28 10:54 Order name: CT Head C Spine; Complete Time: 11:46 lavern Administered Medications: 12:19 Drug: Ketorolac IM 30 mg IM once Route: IM; Site: left vastus lateralis; ap3 12:40 Follow up: Response: Medication administered at discharge. ap3 12:19 Drug: Hydrocodone-Acetaminophen PO (7.5 mg-325 mg) 1 tabs PO once Route: PO; ap3 12:40 Follow up: Response: Medication administered at discharge. ap3 12:19 Drug: Ondansetron Oral Disintegrating Tablet Oral Disintegrating Tablet 4 mg PO once ap3 Route: PO; 12:39 Follow up: Response: Medication administered at discharge. ap3 Disposition Summary: 11/29/23 12:08 Discharge Ordered Notes: Location: Home [facility] Problem: new lavern Symptoms: have improved lavern Condition: Stable lavern Diagnosis - Fall on same level, unspecified lavern - Unspecified injury of head, initial encounter lavern - Headache lavern - Sprain of ligaments of cervical spine, initial encounter lavern Followup: lavern - With: Private Physician - When: 2 - 3 days - Reason: Recheck today's complaints, Continuance of care, Re-evaluation by your physician Followup: lavern - With: Corey Santos MD - When: 2 - 3 days - Reason: Recheck today's complaints, Re-evaluation by your physician Discharge Instructions: - Discharge Summary Sheet lavern - Head Injury, Adult lavern - Cervical Sprain lavern - Cervical Sprain, [id number] lavern - Head Injury, Adult, [id number] [facility] Forms: - Medication Reconciliation Form [facility] - Thank You Letter [facility] - Antibiotic Education lavern - Prescription Opioid Use [facility] - Patient Portal Instructions [facility] - Leadership Thank You Letter [facility] Prescriptions: - acetaminophen-codeine 300-30 mg Oral tablet - take 1 tablet ORAL route every 4-6 hours as needed for pain; 20 tablet; [facility] Refills: 0, Product Selection Permitted - diclofenac sodium 25 mg Oral tablet, delayed release (enteric coated) - take 1 tablet ORAL route 3 times per day; 30 tablet; Refills: 0, Product [facility] Selection Permitted - Medrol (Romain) 4 mg Oral Tablets, Dose Pack - take 1 tablet ORAL route as directed - follow package instructions; 1 packet; [facility] Refills: 0, Product Selection Permitted - Cyclobenzaprine 5 mg Oral Tablet - take 1 tablet ORAL route 3 times per day As needed; 15 tablet; Refills: 0, [facility] Product Selection Permitted Signatures: Dispatcher [employer] Breezy Mosley MD MD cha Prokisch, Amanda RN RN ap3 Ingrid Mireles RN RN mb9
--- NOTE | 2023-11-29 12:09 | ER ---
Nurse's Notes [facility] Name: Tita Elizabeth Age: 58 yrs Sex: Female : 1965 Arrival Date: 11/29/2023 Time: 10:41 Bed 10 Private MD: Diagnosis: Fall on same level, unspecified;Unspecified injury of head, initial encounter;Headache;Sprain of ligaments of cervical spine, initial encounter Presentation: 11/28 10:50 Chief complaint: Patient states: I fell on Monday and hit my head. I have neck pain mb9 now and i'm worried because I got a titanium plate in my neck in July. I didn't pass out or anything and I only take Aspirin". Coronavirus screen: Vaccine status: Patient reports receiving the 2nd dose of the covid vaccine. Ebola Screen: No symptoms or risks identified at this time. Initial Sepsis Screen: Does the patient meet any 2 criteria? No. Patient's initial sepsis screen is negative. Does the patient have a suspected source of infection? No. Patient's initial sepsis screen is negative. Risk Assessment: Do you want to hurt yourself or someone else? Patient reports no desire to harm self or others. Onset of symptoms was 2023. 10:50 Method Of Arrival: Ambulatory mb9 10:50 Acuity: JAY 3 mb9 Triage Assessment: 10:52 General: Appears in no apparent distress. Behavior is calm, cooperative, appropriate mb9 for age. Pain: Complains of pain in neck Pain radiates to face Pain currently is 8 out of 10 on a pain scale. Quality of pain is described as sharp, stabbing, Pain began 2-3 days ago. Is continuous. EENT: No signs and/or symptoms were reported regarding the EENT system. Neuro: Valentine Agitation-Sedation Scale (RASS): 0 - Alert and Calm Level of Consciousness is awake, alert, obeys commands, Oriented to person, place, time, situation, Appropriate for age Pupils are PERRLA. Cardiovascular: Patient's skin is warm and dry. Respiratory: Airway is patent Respiratory effort is even, unlabored, Respiratory pattern is regular, symmetrical. Derm: Skin is pink, warm \\T\\ dry. Musculoskeletal: Range of motion: intact in all extremities. Historical: - Allergies: 10:50 Sulfa (Sulfonamide Antibiotics); mb9 - Home Meds: 10:50 aspirin 81 mg Oral capsule 1 cap once [Active]; mb9 - PMHx: 10:50 Colitis; HTN; Crohn's Disease; Arthritis; mb9 - PSHx: 10:50 Appendectomy; hysterectomy; kyphoplasty; Neck surgery; Tonsillectomy; mb9 - Immunization history:: Adult Immunizations up to date. - Infectious Disease History:: Denies. - Social history:: Smoking status: Patient reports the use of cigarette tobacco products, smokes one-half pack cigarettes per day. - Family history:: not pertinent. Screenin:20 Abuse screen: Denies threats or abuse. Nutritional screening: No deficits noted. ap3 Tuberculosis screening: No symptoms or risk factors identified. 12:41 [facility] ED Fall Risk Assessment (Adult) History of falling in the last 3 months, ap3 including since admission Yes- single mechanical fall (1 pt) Confusion or Disorientation No (0 pts) Intoxicated or Sedated No (0 pts) Impaired Gait No (0 pts) Mobility Assist Device Used No (0 pt) Altered Elimination No (0 pt) Score/Fall Risk Level 0 - 2 = Low Risk Oriented to surroundings, Maintained a safe environment, Educated pt \\T\\ family on fall prevention, incl call for assistance when getting out of bed, Assessed \\T\\ reinforced patient's understanding of fall precautions, Provided non-skid footwear, Hourly rounding (assess needs \\T\\ fall precautionary measures) done, Used ambulatory aids as needed (educated on \\T\\ assisted with), Used gait belt as appropriate. Assessment: 12:19 General: Appears in no apparent distress. Behavior is calm, cooperative. Pain: ap3 Complains of pain in neck. Neuro: Level of Consciousness is awake, alert, obeys commands, Oriented to person, place, time, situation, Appropriate for age. Cardiovascular: Patient's skin is warm and dry. Respiratory: Airway is patent Respiratory effort is even, unlabored, Respiratory pattern is regular, symmetrical. Vital Signs: 10:50 BP 150 / 81; Pulse 57; Resp 18; Temp 97.8; Pulse Ox 100% ; Height 5 ft. 1 in. ; Pain mb9 8/10; 12:40 BP 134 / 94; Pulse 88; Resp 17; Temp 97.7; Pulse Ox 97% ; ap3 10:50 Pain Scale: Adult mb9 ED Course: 10:44 Patient arrived in ED. im 10:50 Arm band placed on. mb9 10:52 Triage completed. mb9 10:54 Breezy Pollard MD is Attending Physician. [facility] 11:14 CT Head C Spine In Process Unspecified. EDMS 12:01 Vielka Stephen, RN is Primary Nurse. ap3 12:06 Corey Santos MD is Referral Physician. lavern 12:20 Patient has correct armband on for positive identification. Bed in low position. Call ap3 light in reach. Side rails up X 1. Pulse ox on. NIBP on. 12:20 No provider procedures requiring assistance completed. Patient did not have IV access ap3 during this emergency room visit. 12:41 Provided Education on: discharge instructions. ap3 Administered Medications: 12:19 Drug: Ketorolac IM 30 mg IM once Route: IM; Site: left vastus lateralis; ap3 12:40 Follow up: Response: Medication administered at discharge. ap3 12:19 Drug: Hydrocodone-Acetaminophen PO (7.5 mg-325 mg) 1 tabs PO once Route: PO; ap3 12:40 Follow up: Response: Medication administered at discharge. ap3 12:19 Drug: Ondansetron Oral Disintegrating Tablet Oral Disintegrating Tablet 4 mg PO once ap3 Route: PO; 12:39 Follow up: Response: Medication administered at discharge. ap3 Medication: 12:20 VIS not applicable for this client. ap3 Outcome: 12:08 Discharge ordered by . [facility] 12:41 Discharged to home ambulatory, ap3 12:41 Condition: good 12:41 Discharge instructions given to patient, Instructed on discharge instructions, follow up and referral plans. medication usage, Demonstrated understanding of instructions, follow-up care, medications, Prescriptions given X 4, 12:41 Patient left the ED. ap3 Signatures: Dispatcher [employer] EDMD Breezy Pollard MD MD cha Prokisch, Amanda, RN RN ap3 Ingrid Mireles RN RN mb9 Alexandra Ramos im
[2023-11-29] MEDS ORDERED: HYDROCODONE/APAP 7.5/325 MG TAB ONE (12:13)
[2023-11-29] MEDS ORDERED: KETOROLAC 30 MG/ML INJ ONE (12:13)
[2023-11-29] MEDS ORDERED: ONDANSETRON 4 MG (ODT) TAB ONE (12:13)
[2023-11-29 13:17] VITALS: BP 134/94; TEMP 97.7; O2SAT 97
== END 2023-11-29 12:41 | disposition home or self-care (01) ==
LOC: ER 10:41
DX: S13.9XXA Sprain of joints and ligaments of unspecified parts of neck, initial encounter (principal); S09.90XA Unspecified injury of head, initial encounter; R51.9 Headache, unspecified; W18.30XA Fall on same level, unspecified, initial encounter; F17.210 Nicotine dependence, cigarettes, uncomplicated; I10 Essential (primary) hypertension; Z79.82 Long term (current) use of aspirin; Z88.2 Allergy status to sulfonamides
CPT/HCPCS: 70450; 72125; Q0162

== ENCOUNTER 2023-12-06 07:19 | Day surgery (SDC) | payer OTHER ==
[2023-12-06] MEDS: Zoledronic Acid/Mannitol/Water 5 MG/100 ML INFUS.BOT IV ONE (07:53)
[2023-12-06 08:18] VITALS: BP 106/58; TEMP 98.4; O2SAT 95; BMI 23.6
== END 2023-12-06 09:10 | disposition home or self-care (01) ==
LOC: DS 07:19
PROVIDERS: ATTEND Internal Medicine
DX: M81.0 Age-related osteoporosis without current pathological fracture (principal); R13.10 Dysphagia, unspecified
CPT/HCPCS: 96365; J3489

== ENCOUNTER 2024-09-27 10:31 | Emergency (ER) | payer OTHER ==
[2024-09-27 11:44] LABS: Absolute Eosinophils 0.1 K/uL (0-0.5); Absolute Lymphocytes (CBC) 3.9 K/uL (0.7-4.9); Absolute Monocytes 0.5 K/uL (0.1-1.3); Absolute Neutrophil 2.6 K/uL (1.8-8.0); Basophils % 0.6 % (0-1.3); Eosinophils % 1.5 % (0-4.4); Hematocrit 40.4 % (36.0-45.0); Hemoglobin 14.1 g/dL (12.0-15.0); Lymphocytes % 54.5 % (15.3-44.8); MCHC 34.8 g/dL (32.0-36.0); MCV 91.8 fL (80-100); MPV 9.6 fL (7.6-11.3); Monocytes % 7.4 % (3.3-12.3); Nucleated Red Blood Cells % 0.1 % (0-0); Platelets 137 thou/uL (152-406)
[2024-09-27 11:56] LABS: Anion Gap 5.8 mEq/L (5.0-15.0); Potassium 3.8 mEq/L (3.5-5.1)
--- NOTE | 2024-09-27 12:05 | RAD REPORT ---
Exam:Foot Right 2 View CLINICAL HISTORY: Right foot pain FINDINGS: Post surgical changes involve the first metatarsal and first proximal phalanx. On the lateral view there appears to be separation of the osteotomy fragments of the first proximal p halanx.. It is recommended that patient have an oblique view of the foot for further evaluation.
[2024-09-27] MEDS ORDERED: HYDROCODONE/APAP 5/325 MG TAB ONE (12:13)
--- NOTE | 2024-09-27 12:18 | ER ---
Nurse's Notes [facility] Name: Tita Elizabeth Age: 59 yrs Sex: Female : 1965 Arrival Date: 09/27/2024 Time: 10:31 Bed 20 Private MD: Diagnosis: Right foot pain, post bunion surgery pain Presentation: 09/27 10:44 Chief complaint: Patient states: R foot 1st toe pain, redness, blisters near nailbed ll1 for 3 days. Redness and pain is spreading up 1st digit into R foot now. No fever. Coronavirus screen: Client denies travel out of the [place] in the last 14 days. At this time, the client does not indicate any symptoms associated with coronavirus-19. Ebola Screen: Patient denies travel to an Ebola-affected area in the 21 days before illness onset. Initial Sepsis Screen: Does the patient meet any 2 criteria? No. Patient's initial sepsis screen is negative. Does the patient have a suspected source of infection? No. Patient's initial sepsis screen is negative. Risk Assessment: Do you want to hurt yourself or someone else? Patient reports no desire to harm self or others. Onset of symptoms was September 25, 2024. 10:44 Method Of Arrival: Ambulatory ll1 10:44 Acuity: JAY 3 hb Triage Assessment: 10:46 General: Appears uncomfortable, Behavior is calm, cooperative, appropriate for age. ll1 Pain: Complains of pain in right foot Quality of pain is described as aching. Derm: redness R foot 1st digit Reports pain. Musculoskeletal: Reports pain in right foot. Historical: - Allergies: 10:43 Sulfa (Sulfonamide Antibiotics); ll1 - PMHx: 10:43 Arthritis; Colitis; Crohn's Disease; HTN; ll1 - PSHx: 10:43 Appendectomy; hysterectomy; kyphoplasty; Tonsillectomy; bunionectomy (Tonsillectomy); ll1 - Immunization history:: Adult Immunizations up to date. - Infectious Disease History:: Denies. - Social history:: Smoking status: Patient reports the use of cigarette tobacco products, smokes one pack cigarettes per day. Screenin:08 [facility] ED Fall Risk Assessment (Adult) History of falling in the last 3 months, kj2 including since admission No falls in past 3 months (0 pts) Confusion or Disorientation No (0 pts) Intoxicated or Sedated No (0 pts) Impaired Gait No (0 pts) Mobility Assist Device Used No (0 pt) Altered Elimination No (0 pt) Score/Fall Risk Level 0 - 2 = Low Risk Maintained a safe environment, Hourly rounding (assess needs \T\ fall precautionary measures) done. Abuse screen: Denies threats or abuse. Denies injuries from another. Nutritional screening: No deficits noted. Tuberculosis screening: No symptoms or risk factors identified. Assessment: 11:21 Reassessment: Patient and/or family updated on plan of care and expected duration. Pain ll1 level reassessed. 12:05 Reassessment: Patient appears in no apparent distress at this time. Patient and/or kj2 family updated on plan of care and expected duration. Pain level reassessed. Patient is alert, oriented x 3, equal unlabored respirations, skin warm/dry/pink. 12:18 Reassessment: Patient appears in no apparent distress at this time. Patient and/or kj2 family updated on plan of care and expected duration. Pain level reassessed. Patient is alert, oriented x 3, equal unlabored respirations, skin warm/dry/pink. Vital Signs: 10:44 BP 115 / 78; Pulse 50; Resp 17; Temp 97.1; Pulse Ox 97% ; Weight 55.79 kg; Height 5 ft. ll1 0 in. ; Pain 8/10; 12:05 BP 103 / 66; Pulse 50; Resp 18; Pulse Ox 95% on R/A; kj2 10:44 Body Mass Index 24.02 (55.79 kg, 152.4 cm) ll1 10:44 Pain Scale: Adult ll1 ED Course: 10:37 Patient arrived in ED. sj2 10:37 Ngozi Ashley MD is Attending Physician. sp3 10:46 Triage completed. ll1 10:46 Arm band placed on. ll1 11:21 Foot Right 2 View XRAY In Process Unspecified. EDMS 11:21 Patient placed in an exam room, on a stretcher. ll1 11:36 Chem 7 Sent. em1 11:37 CBC with Diff Sent. em1 11:37 Initial lab(s) drawn, by id, sent to lab. Inserted saline lock: 20 gauge in right em1 antecubital area, using aseptic technique. Blood collected. Flushed with 10 mL NS. 12:07 Angela Leija, RN is Primary Nurse. kj2 12:10 Patient has correct armband on for positive identification. Placed in gown. Call light kj2 in reach. Provided Education on: call light, fall precaution. 12:19 No provider procedures requiring assistance completed. IV discontinued, intact, kj2 bleeding controlled, No redness/swelling at site. Pressure dressing applied. Administered Medications: 12:15 Drug: HYDROcodone-acetaminophen PO 5 mg-325 mg 2 tabs PO once Route: PO; kj2 12:19 Follow up: Response: No adverse reaction kj2 Medication: 12:09 VIS not applicable for this client. kj2 Outcome: 12:17 Discharge ordered by . sp3 12:19 Discharged to home ambulatory, kj2 12:19 Condition: stable 12:19 Discharge instructions given to patient, Instructed on discharge instructions, follow up and referral plans. medication usage, Demonstrated understanding of instructions, follow-up care, medications, Prescriptions given X 2, 12:56 Patient left the ED. kj2 Signatures: Dispatcher [employer] EDMS Boone Mcgowan em1 Maya Lowe RN RN hb Lora Doll RN RN ll1 Ngozi Ashley MD MD sp3 Angela Leija, DALJIT RN kj2 Elizabeth Pratt sj2 Corrections: (The following items were deleted from the chart) 10:49 10:44 Chief complaint: Patient states: R foot 1st toe pain, redness, blisters for 3 ll1 days. Redness and pain is spreading up 1st digit into R foot now. No fever ll1 11:13 10:44 Acuity: JAY 4 ll1 hb
--- NOTE | 2024-09-27 12:18 | EDPHYS ---
Physician Documentation [facility] Name: Tita Elizabeth Age: 59 yrs Sex: Female : 1965 Arrival Date: 09/27/2024 Time: 10: Bed 20 Private MD: ED Physician Ngozi Ashley HPI: 09/27 12:14 This 59 yrs old Female presents to ER via Ambulatory with complaints of Foot Pain - sp3 POST SURGERY. 12:14 59-year-old female with history of Crohn's, hypertension, arthritis, right foot bunion sp3 surgery performed in May 2024 now presents to the ED with chief complaint right first metatarsal pain and mild redness. She denies any direct trauma, injury, history of gout, prolonged immobilization, travel history, fever, lymph node swelling, calf pain, or any other signs or symptoms on ROS at this time.. Historical: - Allergies: 10:43 Sulfa (Sulfonamide Antibiotics); ll1 - PMHx: 10:43 Arthritis; Colitis; Crohn's Disease; HTN; ll1 - PSHx: 10:43 Appendectomy; hysterectomy; kyphoplasty; Tonsillectomy; bunionectomy (Tonsillectomy); ll1 - Immunization history:: Adult Immunizations up to date. - Infectious Disease History:: Denies. - Social history:: Smoking status: Patient reports the use of cigarette tobacco products, smokes one pack cigarettes per day. ROS: 12:14 Constitutional: Negative for fever, chills, and weight loss, Eyes: Negative for injury, sp3 pain, redness, and discharge, ENT: Negative for injury, pain, and discharge, Neck: Negative for injury, pain, and swelling, Cardiovascular: Negative for chest pain, palpitations, and edema, Respiratory: Negative for shortness of breath, cough, wheezing, and pleuritic chest pain, Abdomen/GI: Negative for abdominal pain, nausea, vomiting, diarrhea, and constipation, Back: Negative for injury and pain, Skin: Negative for injury, rash, and discoloration, Neuro: Negative for headache, weakness, numbness, tingling, and seizure, Psych: Negative for depression, anxiety, suicide ideation, homicidal ideation, and hallucinations, Allergy/Immunology: Negative for hives, rash, and allergies, Endocrine: Negative for neck swelling, polydipsia, polyuria, polyphagia, and marked weight changes, Hematologic/Lymphatic: Negative for swollen nodes, abnormal bleeding, and unusual bruising, 12:14 All other systems are negative, Exam: 12:15 Constitutional: This is a well developed, well nourished patient who is awake, alert, sp3 and in no acute distress. Head/Face: Normocephalic, atraumatic. Chest/axilla: Normal chest wall appearance and motion. Nontender with no deformity. No lesions are appreciated. Cardiovascular: Regular rate and rhythm with a normal S1 and S2. No gallops, murmurs, or rubs. Normal PMI, no JVD. No pulse deficits. Respiratory: Lungs have equal breath sounds bilaterally, clear to auscultation and percussion. No rales, rhonchi or wheezes noted. No increased work of breathing, no retractions or nasal flaring. Abdomen/GI: Soft, non-tender, with normal bowel sounds. No distension or tympany. No guarding or rebound. No evidence of tenderness throughout. Neuro: Awake and alert, GCS 15, oriented to person, place, time, and situation. Cranial nerves II-XII grossly intact. Motor strength 5/5 in all extremities. Sensory grossly intact. Cerebellar exam normal. Normal gait. 12:15 Musculoskeletal/extremity: Right first metatarsal pain with mild erythema. No other signs of infection noted. Remainder of right lower extremity is normal.. Vital Signs: 10:44 BP 115 / 78; Pulse 50; Resp 17; Temp 97.1; Pulse Ox 97% ; Weight 55.79 kg; Height 5 ft. ll1 0 in. ; Pain 8/10; 12:05 BP 103 / 66; Pulse 50; Resp 18; Pulse Ox 95% on R/A; kj2 10:44 Body Mass Index 24.02 (55.79 kg, 152.4 cm) ll1 10:44 Pain Scale: Adult ll1 MDM: 10:49 Medical Screening Exam initiated sp3 12:16 Data reviewed: vital signs, nurses notes. ED course: First metatarsal foot pain now 3 sp3 months postsurgery. X-ray demonstrates possible ostial separation. No signs of osteomyelitis. Labs are normal. 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 09/27 11:07 Order name: CBC with Diff; Complete Time: 12:06 sp3 09/27 11:07 Order name: Chem 7; Complete Time: 12:06 sp3 09/27 11:07 Order name: Foot Right 2 View XRAY; Complete Time: 12:14 sp3 Administered Medications: 12:15 Drug: HYDROcodone-acetaminophen PO 5 mg-325 mg 2 tabs PO once Route: PO; kj2 12:19 Follow up: Response: No adverse reaction kj2 Disposition Summary: 09/27/24 12:17 Discharge Ordered Notes: Location: Home sp3 Condition: Stable sp3 Diagnosis - Right foot pain, post bunion surgery pain sp3 Followup: sp3 - With: Private Physician - When: Upon discharge from the Emergency Department - Reason: Continuance of care Discharge Instructions: - Discharge Summary Sheet sp3 - Bunion Surgery, Care After sp3 Forms: - Medication Reconciliation Form sp3 - Antibiotic Education sp3 - Prescription Opioid Use sp3 - Patient Portal Instructions sp3 - Leadership Thank You Letter sp3 Prescriptions: - Clindamycin HCl 300 mg Oral Capsule - take 1 capsule ORAL route every 6 hours for 10 days; 40 capsule; Refills: 0, sp3 Product Selection Permitted - Tramadol 50 mg Oral Tablet - take 1 tablet ORAL route every 8 hours as needed; 12 tablet; Refills: 0, sp3 Product Selection Permitted Signatures: Dispatcher [employer] Lora Duron, RN RN ll1 Ngozi Ashley MD MD sp3 Angela Leija RN RN kj2
== END 2024-09-27 12:56 | disposition home or self-care (01) ==
LOC: ER 10:31
DX: M79.671 Pain in right foot (principal); Z98.890 Other specified postprocedural states; F17.210 Nicotine dependence, cigarettes, uncomplicated
CPT/HCPCS: 36415; 80048; 85025; 99284